=== PATIENT | female | born 1955 | race American Indian/Alaskan Native ===

== ENCOUNTER 2018-06-16 09:25 | Emergency (ER) | payer MEDICARE, MEDICAID ==
[~2018-06-16] VITALS: Ht 172.7 cm; Wt 67.1 kg
[2018-06-16] MEDS ORDERED: ROXICODONE15 MG PO (11:29)
--- OUTSIDE RECORDS SUMMARY | 2018-06-16 12:08 | XMS ---
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 GIL [employer] Events No recent Security Events currently on file CRITERIA MET - Group Notification CARE PROVIDERS There are no care providers on record at this time. Gunner has no Care Guidelines for this patient. Rani VISIT COUNT (12 MO.) 1 NEVA Vera TOTAL 1 NOTE: Visits indicate total known visits. ED/C VISIT TRACKING (12 MO.) 06/16/2018 09:26 [facility] TYPE: Emergency COMPLAINT: - CHEST PAIN INPATIENT VISIT TRACKING (12 MO.) No inpatient visits to display in this time frame [email or web address]
--- NOTE | 2018-06-17 14:50 | EKG ---
[facility] [address] [place], [place] [address] Signed Sinus rhythm with occasional premature ventricular complexes Left axis deviation Inferior-posterior infarct , age undetermined Abnormal ECG No previous ECGs available Confirmed by WOOD YANG MD ([id number]) on 06/17/2018 2:50:28 PM Electronically Signed By: WOOD YANG MD 06/17/18 1450 PATIENT NAME: ANNE MARIE GIL Electrocardiogram DATE OF : 53 PHYSICIAN: WOOD YANG MD REPORT #: [id number] REPORT IS CONFIDENTIAL AND NOT TO BE RELEASED WITHOUT AUTHORIZATION
== END 2018-06-16 11:50 | disposition home or self-care (01) ==
LOC: ED 09:25
DX: G89.18 Other acute postprocedural pain (principal); R07.89 Other chest pain; Z95.1 Presence of aortocoronary bypass graft
CPT/HCPCS: 36415; 71045; 80053; 84484; 85025; 93005; 93010; 96361; 96374; 96375; 99285; J1170; J2405; J7120

== ENCOUNTER 2018-07-05 18:58 | Emergency (ER) | payer MEDICARE, OTHER ==
[~2018-07-05] VITALS: Ht 172.7 cm; Wt 67.1 kg
--- OUTSIDE RECORDS SUMMARY | ~2018-07-05 | XMS | Encounter Summary ---
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 back yet CABG tomorrowFrKathie kiser MD - 06/09/2018 1732 PDTFormatting of this note may be dif ferent from the original. Patient: Smitha Fletcher Date of : 1955 Admit Date: 06/07/2018 Date of Service: 06/09/2018 PCP: Yolanda Lee [facility] Day: 0 Hospital Course: This is a 62 y.o.femalewith hx substance abuse, OR and stent [place] [address] Sandoval cardiology. She was brought from longterm, complaining of severe 8-9/10 burning chest pain [...] hypokinesis present but the patient has has OR's in the past . Mild LVH. Stress [...] Single Lumen 06/09/18 0836 Left Distal Forearm miwh-nzb-hwvyzr cathet er system 20 gauge;1 1/4 in [...] this chart may have been created with iAgree voice recognition software. Occasi onal wrong-word or sound-alike substitutions may have occurred due to the inherent meyers itations of voice recognition software. Please read the chart carefully and recognize, using context, where these substitutions have occurred Shad Schuler MD - 06/09/2018 0950 PDTFormatting of this note may be different from the original. PATIENT NAME: Smitha Fletcher [...] TTE on 018 revealed LVEF = 45%, tvyqotoi-tw-qcstcr hypokinesis of lateral and inferior castillo, julian [...] Complaint: Chest pain Hospital Course: 62F PMH CAD/OR s/p stent (2011), ischemic HFrEF (LVEF = 45%), HTN, polysubstance abuse (met hamphetamine & marijuana), HCV, bipolar disorder, nicotine dependence and incarceration pres ented from longterm w/ severe, burning, substernal chest pain w/ radiation to left shoulder and associated nausea and vomiting. Workup in ED revealed troponin elevation (peak 0.311 this admission) and patient was admitt ed for further workup and management w/ cardiology. Labs in ED also revealed UDS positive fo r amphetamine, methamphetamine, benzodiazepines and opiates. TTE revealed LVEF = 45%, ofpjgkbv-rp-gxdwni hypokinesis of lateral and inferior castillo, mitr [...] by: Shad Schuler MD 06/09/2018 18:44 Michael Olson MD - 06/08/2018 1625 PDTFormatting of this note may be different from the original. Patient: Smitha Fletcher Date of : 1955 Admit Date: 06/07/2018 Date of Service: 06/08/2018 PCP: Yolanda Lee [facility] Day: 0 Hospital Course: This is a 62 y.o. female with hx substance abuse, OR and stent [place] [address] Riya banuelos cardiology. She was brought from longterm, complaining on sever -06/15 burning chest pain [...] hypokinesis present but the patient has has OR's in the past . Mild LVH. Stress [...] 06/07/18 1545 Right Anterior (palmar);Medial Forearm ove c-dzz-jzqcat catheter system 20 gauge;other (see comments) 1 [...] this chart may have been created with iAgree voice recognition software. Occasi onal wrong-word or sound-alike substitutions may have occurred due to the inherent meyers itations of voice recognition software. Please read the chart carefully and recognize, using context, where these substitutions have occurred Shad Schuler MD - 06/08/2018 1022 PDTFormatting of this note may be different from the original. PATIENT NAME: Smitha Fletcher [...] Portions of this chart were created with iAgree voice recognition software. Occasional wro ng-word or "sound-alike" substitutions may have occurred due to the inherent limitations of voice recognition software. Please read the chart carefully and recognize, using context, w here those substitutions have occurred.Rhiannon Marcus RN - 06/07/2018 1509 [id number] arriv ed to floor. Somunlent. Asking very few questions. Follows directions. Changed into gown. De nies chest pain - mostly upper epigastric down abdomen. Emesis bag given. Lisinopril po give n with sips. HTN. SR on monitor. Alarm placed for safety. IVF prepared and vein blew with fl ush. in this encounter Plan of Treatment +--------+---------+ + + + | Date | Type | Specialty | Care Team | Description | +--------+---------+ + + + | 07/15/ | Office | Cardiology | Kylie Shields, | | | 2017 | Visit | | [facility] [address] | | | | | | [address], | | | | | | [place] [address] | | | | | | [phone] | | | | | | | | +--------+---------+ + + + + +--------+ + + | Name | Priori | Associated Diagnoses | Date/Time | | | ty | | | + +--------+ + + | ECG 12 lead | STAT | | 06/07/2018 0956 PDT | + +--------+ + + | ECG 12 lead | STAT | | 06/07/2018 1144 PDT | + +--------+ + + | Red Blood Cells | Routin | | 06/11/2018 1518 PDT | | (PRBC-INTRAOP)-Transfuse | e | | | + +--------+ + + + +--------+ + + | Name | Priori | Associated Diagnoses | Order Schedule | | | ty | | | + +--------+ + + | [facility] | NSTEMI (non-ST | Ordered: 06/15/2018 | | | e | elevated myocardial | | | | | infarction) ([facility]) | | + +--------+ + + | Ambulatory Referral to Cardiac | Routin | S/P CABG x 3 | Ordered: 06/15/2018 | | [facility] | e | | | + +--------+ + + as of this encounter Procedures + +--------+ + + + | Procedure Name | Priori | Date/Time | Associated Diagnosis | Comments | | | ty | | | | + +--------+ + + + | CBC NO DIFFERENTIAL | Routin | 06/15/2018 | | Results for this | | | e | 0923 PDT | | procedure are in the | | | | | | results section. | + +--------+ + + + | BASIC METABOLIC | Routin | 06/15/2018 | | Results for this | | PANEL | e | 0923 PDT | | procedure are in the | | | | | | results section. | + +--------+ + + + | XR CHEST 2 VIEWS | STAT | 06/15/2018 | | Results for this | | | | 0626 PDT | | procedure are in the | | | | | | results section. | + +--------+ + + + | PRODUCT: RBC | Routin | 06/15/2018 | | Results for this | | | e | 0353 PDT | | procedure are in the | | | | | | results section. | + +--------+ + + + | POC GLUCOSE | Routin | 06/14/2018 | | Results for this | | | e | 1627 PDT | | procedure are in the | | | | | | results section. | + +--------+ + + + | PRODUCT: RBC | STAT | 06/14/2018 | | Results for this | | | | 1212 PDT | | procedure are in the | | | | | | results section. | + +--------+ + + + | POC GLUCOSE | Routin | 06/14/2018 | | Results for this | | | e | 0627 PDT | | procedure are in the | | | | | | results section. | + +--------+ + + + | POC GLUCOSE | Routin | 06/14/2018 | | Results for this | | | e | 0231 PDT | | procedure are in the | | | | | | results section. | + +--------+ + + + | POC GLUCOSE | Routin | 06/13/2018 | | Results for this | | | e | 203 PDT | | procedure are in the | | | | | | results section. | + +--------+ + + + | POC GLUCOSE | Routin | 06/13/2018 | | Results for this | | | e | 1609 PDT | | procedure are in the | | | | | | results section. | + +--------+ + + + | POC GLUCOSE | Routin | 06/13/2018 | | Results for this | | | e | 1120 PDT | | procedure are in the | | | | | | results section. | + +--------+ + + + | POC GLUCOSE | Routin | 06/13/2018 | | Results for this | | | e | 0625 PDT | | procedure are in the | | | | | | results section. | + +--------+ + + + | XR CHEST AP PORTABLE | Routin | 06/13/2018 | | Results for this | | | e | 0622 PDT | | procedure are in the | | | | | | results section. | + +--------+ + + + | CBC NO DIFFERENTIAL | Routin | 06/13/2018 | | Results for this | | | e | 0402 PDT | | procedure are in the | | | | | | results section. | + +--------+ + + + | BASIC METABOLIC | Routin | 06/13/2018 | | Results for this | | PANEL | e | 0402 PDT | | procedure are in the | | | | | | results section. | + +--------+ + + + | POC GLUCOSE | Routin | 06/13/2018 | | Results for this | | | e | 0242 PDT | | procedure are in the | | | | | | results section. | + +--------+ + + + | POC GLUCOSE | Routin | 06/12/2018 | | Results for this | | | e | 2200 PDT | | procedure are in the | | | | | | results section. | + +--------+ + + + | POC GLUCOSE | Routin | 06/12/2018 | | Results for this | | | e | 1641 PDT | | procedure are in the | | | | | | results section. | + +--------+ + + + | POC GLUCOSE | Routin | 06/12/2018 | | Results for this | | | e | 1602 PDT | | procedure are in the | | | | | | results section. | + +--------+ + + + | POC GLUCOSE | Routin | 06/12/2018 | | Results for this | | | e | 1227 PDT | | procedure are in the | | | | | | results section. | + +--------+ + + + | POC GLUCOSE | Routin | 06/12/2018 | | Results for this | | | e | 0659 PDT | | procedure are in the | | | | | | results section. | + +--------+ + + + | POC GLUCOSE | Routin | 06/12/2018 | | Results for this | | | e | 0600 PDT | | procedure are in the | | | | | | results section. | + +--------+ + + + | POC GLUCOSE | Routin | 06/12/2018 | | Results for this | | | e | 0508 PDT | | procedure are in the | | | | | | results section. | + +--------+ + + + | XR CHEST AP PORTABLE | Routin | 06/12/2018 | | Results for this | | | e | 0333 PDT | | procedure are in the | | | | | | results section. | + +--------+ + + + | POC GLUCOSE | Routin | 06/12/2018 | | Results for this | | | e | 0315 PDT | | procedure are in the | | | | | | results section. | + +--------+ + + + | ECG 12 LEAD | Routin | 06/12/2018 | | Results for this | | | e | 0312 PDT | | procedure are in the | | | | | | results section. | + +--------+ + + + | CBC NO DIFFERENTIAL | Routin | 06/12/2018 | | Results for this | | | e | 0312 PDT | | procedure are in the | | | | | | results section. | + +--------+ + + + | BASIC METABOLIC | Routin | 06/12/2018 | | Results for this | | PANEL | e | 0312 PDT | | procedure are in the | | | | | | results section. | + +--------+ + + + | POC GLUCOSE | Routin | 06/12/2018 | | Results for this | | | e | 0239 PDT | | procedure are in the | | | | | | results section. | + +--------+ + + + | POC GLUCOSE | Routin | 06/12/2018 | | Results for this | | | e | 0135 PDT | | procedure are in the | | | | | | results section. | + +--------+ + + + | POC GLUCOSE | Routin | 06/11/2018 | | Results for this | | | e | 2358 PDT | | procedure are in the | | | | | | results section. | + +--------+ + + + | POC GLUCOSE | Routin | 06/11/2018 | | Results for this | | | e | 2319 PDT | | procedure are in the | | | | | | results section. | + +--------+ + + + | GLUCOSE, RESPIRATORY | STAT | 06/11/2018 | | Results for this | | | | 2301 PDT | | procedure are in the | | | | | | results section. | + +--------+ + + + | BLOOD GAS, ARTERIAL | STAT | 06/11/2018 | | Results for this | | | | 2301 PDT | | procedure are in the | | | | | | results section. | + +--------+ + + + | POTASSIUM, WHOLE | STAT | 06/11/2018 | | Results for this | | BLOOD | | 2301 PDT | | procedure are in the | | | | | | results section. | + +--------+ + + + | POC GLUCOSE | Routin | 06/11/2018 | | Results for this | | | e | 2156 PDT | | procedure are in the | | | | | | results section. | + +--------+ + + + | POC GLUCOSE | Routin | 06/11/2018 | | Results for this | | | e | 2028 PDT | | procedure are in the | | | | | | results section. | + +--------+ + + + | POTASSIUM | STAT | 06/11/2018 | | Results for this | | | | 1957 PDT | | procedure are in the | | | | | | results section. | + +--------+ + + + | POC GLUCOSE | Routin | 06/11/2018 | | Results for this | | | e | 185 PDT | | procedure are in the | | | | | | results section. | + +--------+ + + + | ECG 12 LEAD | Routin | 06/11/2018 | | Results for this | | | e | 1659 PDT | | procedure are in the | | | | | | results section. | + +--------+ + + + | PTT | STAT | 06/11/2018 | | Results for this | | | | 1637 PDT | | procedure are in the | | | | | | results section. | + +--------+ + + + | PROTIME INR | STAT | 06/11/2018 | | Results for this | | | | 1637 PDT | | procedure are in the | | | | | | results section. | + +--------+ + + + | CBC NO DIFFERENTIAL | STAT | 06/11/2018 | | Results for this | | | | 1637 PDT | | procedure are in the | | | | | | results section. | + +--------+ + + + | COMPREHENSIVE | STAT | 06/11/2018 | | Results for this | | METABOLIC PANEL | | 1637 PDT | | procedure are in the | | | | | | results section. | + +--------+ + + + | LACTIC ACID, | STAT | 06/11/2018 | | Results for this | | ARTERIAL, | | 1636 PDT | | procedure are in the | | RESPIRATORY | | | | results section. | + +--------+ + + + | GLUCOSE, RESPIRATORY | STAT | 06/11/2018 | | Results for this | | | | 1636 PDT | | procedure are in the | | | | | | results section. | + +--------+ + + + | CALCIUM, IONIZED, | STAT | 06/11/2018 | | Results for this | | RESPIRATORY | | 1636 PDT | | procedure are in the | | | | | | results section. | + +--------+ + + + | BLOOD GAS, ARTERIAL | STAT | 06/11/2018 | | Results for this | | | | 1636 PDT | | procedure are in the | | | | | | results section. | + +--------+ + + + | XR CHEST AP PORTABLE | STAT | 06/11/2018 | | Results for this | | | | 1634 PDT | | procedure are in the | | | | | | results section. | + +--------+ + + + | LACTIC ACID, | Routin | 06/11/2018 | | Results for this | | ARTERIAL, SURGERY | e | 1525 PDT | | procedure are in the | | | | | | results section. | + +--------+ + + + | BLOOD GAS , | Routin | 06/11/2018 | | Results for this | | ARTERIAL, SURGERY | e | 1525 PDT | | procedure are in the | | | | | | results section. | + +--------+ + + + | TRANSFUSE RED BLOOD | Routin | 06/11/2018 | | | | CELLS INTRAOP | e | 1518 PDT | | | + +--------+ + + + | DIC PANEL | STAT | 06/11/2018 | | Results for this | | | | 1456 PDT | | procedure are in the | | | | | | results section. | + +--------+ + + + | LACTIC ACID, | Routin | 06/11/2018 | | Results for this | | ARTERIAL, SURGERY | e | 1450 PDT | | procedure are in the | | | | | | results section. | + +--------+ + + + | BLOOD GAS , | Routin | 06/11/2018 | | Results for this | | ARTERIAL, SURGERY | e | 1450 PDT | | procedure are in the | | | | | | results section. | + +--------+ + + + | LACTIC ACID, | Routin | 06/11/2018 | | Results for this | | ARTERIAL, SURGERY | e | 1400 PDT | | procedure are in the | | | | | | results section. | + +--------+ + + + | BLOOD GAS , | Routin | 06/11/2018 | | Results for this | | ARTERIAL, SURGERY | e | 1400 PDT | | procedure are in the | | | | | | results section. | + +--------+ + + + | LACTIC ACID, | Routin | 06/11/2018 | | Results for this | | ARTERIAL, SURGERY | e | 1334 PDT | | procedure are in the | | | | | | results section. | + +--------+ + + + | BLOOD GAS , | Routin | 06/11/2018 | | Results for this | | ARTERIAL, SURGERY | e | 1334 PDT | | procedure are in the | | | | | | results section. | + +--------+ + + + | ECHO TRANSESOPHAGEAL | Routin | 06/11/2018 | | Results for this | | (CHIQUITA) | e | 1305 PDT | | procedure are in the | | | | | | results section. | + +--------+ + + + | LACTIC ACID, | Routin | 06/11/2018 | | Results for this | | ARTERIAL, SURGERY | e | 1300 PDT | | procedure are in the | | | | | | results section. | + +--------+ + + + | CHEMISTRY PROFILE, A | Routin | 06/11/2018 | | Results for this | | AND V, SURGERY | e | 1300 PDT | | procedure are in the | | | | | | results section. | + +--------+ + + + | LACTIC ACID, | Routin | 06/11/2018 | | Results for this | | ARTERIAL, SURGERY | e | 1035 PDT | | procedure are in the | | | | | | results section. | + +--------+ + + + | BLOOD GAS , | Routin | 06/11/2018 | | Results for this | | ARTERIAL, SURGERY | e | 1035 PDT | | procedure are in the | | | | | | results section. | + +--------+ + + + | CORONARY ARTERY | | 06/11/2018 | CVD | | | BYPASS GRAFT | | 0930 PDT | (cardiovascular | | | | | | disease) | | + +--------+ + + + +---+--------+ | | | | | Specia | | | l | | | Needs | | | CHIQUITA | +---+--------+ + +--------+ +---+ + | TYPE AND SCREEN | STAT | 06/11/2018 | | Results for this | | | | 0513 PDT | | procedure are in the | | | | | | results section. | + +--------+ +---+ + | POC GLUCOSE | Routin | 06/11/2018 | | Results for this | | | e | 0312 PDT | | procedure are in the | | | | | | results section. | + +--------+ +---+ + | PTT | Timed | 06/11/2018 | | Results for this | | | | 0312 PDT | | procedure are in the | | | | | | results section. | + +--------+ +---+ + | PROTIME INR | Timed | 06/11/2018 | | Results for this | | | | 0312 PDT | | procedure are in the | | | | | | results section. | + +--------+ +---+ + | CBC NO DIFFERENTIAL | Timed | 06/11/2018 | | Results for this | | | | 0312 PDT | | procedure are in the | | | | | | results section. | + +--------+ +---+ + | BASIC METABOLIC | Timed | 06/11/2018 | | Results for this | | PANEL | | 0312 PDT | | procedure are in the | | | | | | results section. | + +--------+ +---+ + | MRSA NAAT | Routin | 06/11/2018 | | Results for this | | | e | 0010 PDT | | procedure are in the | | | | | | results section. | + +--------+ +---+ + | URINALYSIS WITH | Routin | 06/11/2018 | | Results for this | | MICROSCOPIC WITH | e | 0000 PDT | | procedure are in the | | CULTURE IF INDICATED | | | | results section. | + +--------+ +---+ + | POC GLUCOSE | Routin | 06/10/2018 | | Results for this | | | e | 2254 PDT | | procedure are in the | | | | | | results section. | + +--------+ +---+ + | PTT | Routin | 06/10/2018 | | Results for this | | | e | 2002 PDT | | procedure are in the | | | | | | results section. | + +--------+ +---+ + | PROTIME INR | Routin | 06/10/2018 | | Results for this | | | e | 1722 PDT | | procedure are in the | | | | | | results section. | + +--------+ +---+ + | BASIC METABOLIC | Routin | 06/10/2018 | | Results for this | | PANEL | e | 1722 PDT | | procedure are in the | | | | | | results section. | + +--------+ +---+ + | POC GLUCOSE | Routin | 06/10/2018 | | Results for this | | | e | 1623 PDT | | procedure are in the | | | | | | results section. | + +--------+ +---+ + | HEPATITIS PANEL, | Routin | 06/10/2018 | | Results for this | | ACUTE | e | 1409 PDT | | procedure are in the | | | | | | results section. | + +--------+ +---+ + | PTT | Timed | 06/10/2018 | | Results for this | | | | 1409 PDT | | procedure are in the | | | | | | results section. | + +--------+ +---+ + | ECG 12 LEAD | Routin | 06/10/2018 | | Results for this | | | e | 1210 PDT | | procedure are in the | | | | | | results section. | + +--------+ +---+ + | PFT PULMONARY | KIRAN | 06/10/2018 | | Results for this | | FUNCTION TESTING | | 1156 PDT | | procedure are in the | | ORDERS | | | | results section. | + +--------+ +---+ + | HEPATITIS PANEL, | Routin | 06/10/2018 | | Results for this | | CHRONIC | e | 0655 PDT | | procedure are in the | | | | | | results section. | + +--------+ +---+ + | PTT | Timed | 06/10/2018 | | Results for this | | | | 0655 PDT | | procedure are in the | | | | | | results section. | + +--------+ +---+ + | HEMOGLOBIN A1C | Routin | 06/10/2018 | | Results for this | | | e | 0655 PDT | | procedure are in the | | | | | | results section. | + +--------+ +---+ + | ABO RH | Routin | 06/10/2018 | | Results for this | | | e | 0649 PDT | | procedure are in the | | | | | | results section. | + +--------+ +---+ + | ANTIBODY SCREEN | Routin | 06/10/2018 | | Results for this | | | e | 0649 PDT | | procedure are in the | | | | | | results section. | + +--------+ +---+ + | ANTIBODY ID | STAT | 06/10/2018 | | Results for this | | | | 0046 PDT | | procedure are in the | | | | | | results section. | + +--------+ +---+ + | TYPE AND SCREEN | STAT | 06/10/2018 | | Results for this | | | | 0046 PDT | | procedure are in the | | | | | | results section. | + +--------+ +---+ + | PTT | Routin | 06/10/2018 | | Results for this | | | e | 0046 PDT | | procedure are in the | | | | | | results section. | + +--------+ +---+ + | CV LV | Routin | 06/09/2018 | | Results for this | | | e | 1309 PDT | | procedure are in the | | | | | | results section. | + +--------+ +---+ + | CV LHC | Routin | 06/09/2018 | | Results for this | | | e | 1309 PDT | | procedure are in the | | | | | | results section. | + +--------+ +---+ + | CV COR ANGIO | Routin | 06/09/2018 | | Results for this | | | e | 1309 PDT | | procedure are in the | | | | | | results section. | + +--------+ +---+ + | LVEF VALUE | Routin | 06/09/2018 | | Results for this | | | e | 1300 PDT | | procedure are in the | | | | | | results section. | + +--------+ +---+ + | NM NUCLEAR STRESS | Routin | 06/09/2018 | | Results for this | | TEST (EXERCISE) | e | 1045 PDT | | procedure are in the | | | | | | results section. | + +--------+ +---+ + | ECG 12 LEAD | Routin | 06/09/2018 | | Results for this | | | e | 0421 PDT | | procedure are in the | | | | | | results section. | + +--------+ +---+ + | CBC WITH | Routin | 06/09/2018 | | Results for this | | DIFFERENTIAL | e | 0307 PDT | | procedure are in the | | | | | | results section. | + +--------+ +---+ + | MAGNESIUM | Routin | 06/09/2018 | | Results for this | | | e | 0307 PDT | | procedure are in the | | | | | | results section. | + +--------+ +---+ + | BASIC METABOLIC | Routin | 06/09/2018 | | Results for this | | PANEL | e | 0307 PDT | | procedure are in the | | | | | | results section. | + +--------+ +---+ + | ECHO COMPLETE | Routin | 06/08/2018 | | Results for this | | | e | 1152 PDT | | procedure are in the | | | | | | results section. | + +--------+ +---+ + | TROPONIN I | STAT | 06/08/2018 | | Results for this | | | | 0921 PDT | | procedure are in the | | | | | | results section. | + +--------+ +---+ + | ECG 12 LEAD | Routin | 06/08/2018 | | Results for this | | | e | 0430 PDT | | procedure are in the | | | | | | results section. | + +--------+ +---+ + | TROPONIN I | STAT | 06/08/2018 | | Results for this | | | | 0316 PDT | | procedure are in the | | | | | | results section. | + +--------+ +---+ + | MAGNESIUM | Routin | 06/08/2018 | | Results for this | | | e | 0316 PDT | | procedure are in the | | | | | | results section. | + +--------+ +---+ + | RENAL FUNCTION PANEL | Routin | 06/08/2018 | | Results for this | | | e | 0316 PDT | | procedure are in the | | | | | | results section. | + +--------+ +---+ + | TROPONIN I | STAT | 06/07/2018 | | Results for this | | | | 2051 PDT | | procedure are in the | | | | | | results section. | + +--------+ +---+ + | TROPONIN I | STAT | 06/07/2018 | | Results for this | | | | 1626 PDT | | procedure are in the | | | | | | results section. | + +--------+ +---+ + | ECG 12 LEAD | STAT | 06/07/2018 | | | | | | 1144 PDT | | | + +--------+ +---+ + | CK TOTAL AND CK-MB | Add-On | 06/07/2018 | | Results for this | | | | 1135 PDT | | procedure are in the | | | | | | results section. | + +--------+ +---+ + | ECG 12 LEAD | STAT | 06/07/2018 | | | | | | 0956 PDT | | | + +--------+ +---+ + | XR CHEST PA AND | STAT | 06/07/2018 | | Results for this | | LATERAL | | 0922 PDT | | procedure are in the | | | | | | results section. | + +--------+ +---+ + | DRUGS OF ABUSE, | STAT | 06/07/2018 | | Results for this | | SCREEN, URINE | | 0914 PDT | | procedure are in the | | | | | | results section. | + +--------+ +---+ + | TROPONIN I | STAT | 06/07/2018 | | Results for this | | | | 0910 PDT | | procedure are in the | | | | | | results section. | + +--------+ +---+ + | CBC WITH | STAT | 06/07/2018 | | Results for this | | DIFFERENTIAL | | 0910 PDT | | procedure are in the | | | | | | results section. | + +--------+ +---+ + | MYOGLOBIN | STAT | 06/07/2018 | | Results for this | | | | 0910 PDT | | procedure are in the | | | | | | results section. | + +--------+ +---+ + | LIPASE | STAT | 06/07/2018 | | Results for this | | | | 0910 PDT | | procedure are in the | | | | | | results section. | + +--------+ +---+ + | COMPREHENSIVE | STAT | 06/07/2018 | | Results for this | | METABOLIC PANEL | | 0910 PDT | | procedure are in the | | | | | | results section. | + +--------+ +---+ + | EXTRA HOLD TUBE(S) | Routin | 06/07/2018 | | Results for this | | | e | 0910 PDT | | procedure are in the | | | | | | results section. | + +--------+ +---+ + | URINALYSIS WITH | STAT | 06/07/2018 | | Results for this | | MICROSCOPIC WITH | | 0903 PDT | | procedure are in the | | CULTURE IF INDICATED | | | | results section. | + +--------+ +---+ + | CK TOTAL | Add-On | 06/07/2018 | | Results for this | | | | 0903 PDT | | procedure are in the | | | | | | results section. | + +--------+ +---+ + | ARRHYTHMIA MONITOR - | | 06/07/2018 | | Results for this | | EXTERNAL SCAN | | 0000 PDT | | procedure are in the | | | | | | results section. | + +--------+ +---+ + in this encounter Results CBC no Differential (06/15/2018922) + + + + + | Component | Value | Ref Range | Performed At | + + + + + | WBC | 13.9 (H) | 3.8 - 11.0 K/uL | [facility] | | | | | [facility]ORY | | | | | [facility] | + + + + + | RBC | 3.24 (L) | 3.70 - 5.10 M/uL | [facility] | [facility] | | | | | [facility]ATORY | | | | | [facility] | + + + + + | Hgb | 9.5 (L) | 11.3 - 15.5 g/dL | [facility] | | | | | LAB[facility]ATORY | | | | | [facility] | + + + + + | Hct | 28.8 (L) | 34.0 - 46.0 % | [facility] | [facility] | | | | | LAB[facility]ATORY | | | | | [facility] | + + + + + | MCV | 89.0 | 80.0 - 100.0 fL | [facility] | | | | [facility] | | | | | LAB[facility]ATORY | | | | | [facility] | + + + + + | MCH | 29.3 | 27.0 - 34.0 pg | [facility] | | | | [facility] | | | | | LAB[facility]ATORY | | | | | [facility] | + + + + + | MCHC | 32.9 | 32.0 - 35.5 g/dL | [facility] | | [facility] | | | | | LAB[facility]ATORY | | | | | [facility] | + + + + + | RDW-CV | 15.5 | 11.0 - 15.5 % | [facility] | | | [facility] | | [facility] | | | | | LAB[facility]ATORY | | | | | [facility] | + + + + + | Platelet Count | 231 | 150 - 400 K/uL | [facility] | | | [facility] | | | [facility] | | | | | LAB[facility]ORY | | | | | [facility] | + + + + + | MPV | 7.2 (L)Comment: | 7.5 - 11.2 fL | [facility] | | | Performed by [facility] | | [facility] | | | [address] [place] | | [facility] | | | [address] | | LABORATORY | | | | | [facility] | + + + + + + + | Specimen | + + | Blood | + + + + + + + | Performing | Address | City/State/Zipcode | Phone Number | | Organization | | | | + + + + + | [facility] | [address] | [place] [address] | | | [facility] | | | | | [facility]AT[facility] [place] | | | | + + + + + Basic Metabolic Panel (06/15/2018922) + + + + + | Component | Value | Ref Range | Performed At | + + + + + | NA | 136 | 135 - 145 mmol/L | [facility] | [facility] | | | | | LAB[facility]ATORY | | | | | [facility] | + + + + + | K | 4.6 | 3.5 - 5.0 mmol/L | [facility] | | [facility] | | | [facility] | | | | | LAB[facility]ATORY | | | | | [facility] | + + + + + | CL | 100 | 99 - 109 mmol/L | [facility] | | [facility] | | | [facility] | | | | | LABORATORY | | | | | [facility] | + + + + + | CO2 | 26 | 21 - 28 mmol/L | [facility] | | | [facility] | | | [facility] | | | | | LABORATORY | | | | | [facility] | + + + + + | ANION GAP | 10 | 5 - 16 mmol/L | [facility] | | | | | [facility] | | | [facility] | | | | | LAB[facility]ATORY | | | | | [facility] | + + + + + | CALCIUM | 8.7 | 8.5 - 10.2 mg/dL | [facility] | | | [facility] | | [facility] | | | | | LAB[facility]ATORY | | | | | [facility] | + + + + + | BUN | 47 (H) | 8 - 25 mg/dL | [facility] | | | [facility] | | | [facility] | | | | | LAB[facility]ATORY | | | | | [facility] | + + + + + | Creatinine, | 1.47 (H) | 0.50 - 1.00 mg/dL | [facility] | | Serum/Plasma | | | [facility] | | | | [facility] | | | | | LABORATORY | | | | | [facility] | + + + + + | GLUCOSE | 135 (H) | 65 - 99 mg/dL | [facility] | | | [facility] | | | | [facility] | | | | | LAB[facility]ATORY | | | | | [facility] | + + + + + | Estimated GFR | 38 (L)Comment: eGFR<60 | >=90 mL/min/1.73m2 | [facility] | | | consistent with impaired | | [facility] | | | kidney | | [facility] | | | function.Performed by | | LABORATORY | | | [facility] [address], | | [place] | | | [place] [address] | | | + + + + + + + | Specimen | + + | Blood | + + + + + + + | Performing | Address | City/State/Zipcode | Phone Number | | Organization | | | | + + + + + | [facility] | [address] | [place] [address] | | | [facility] | | | | | LAB[facility]AT[facility] [place] | | | | + + + + + XR Chest 2 Vws (06/15/2018 0626) + + + | Narrative | Performed At | + + + | CHEST TWO VIEWS CLINICAL INFORMATION: Follow up effusion. | [facility] | | COMPARISON: 06/13/2018. IMPRESSION: 1. Mediastinal and chest | | | drains have been removed. 2. There is improved aeration | | | bilaterally. Decreased perihilar reticular and ground-glass | | | opacities. Patchy bibasilar atelectasis and suspect minimal | | | pleural effusions. 3. Cardiomediastinal contours are stable. 4. No | | | pneumothorax. Signed by: MD Upton Paula Sign | | | Date/Time: 06/15/2018 6:31 AM | | + + + + + | Procedure Note | + + | Tim, Rad Results In - 06/15/2018 0635 PDT | | CHEST TWO VIEWS | [...] Red Blood Cells (PRBC) - Crossmatch (06/15/2018 0353) + + + + + | Component | Value | Ref Range | Performed At | + + + + + | Product Code | [id number] | | [facility] | | | | | [facility] | | | | | [facility] | | | | [facility] | + + + + + | UNIT # | [id number] | | [facility] | | | | | [facility] | | | | | [facility] | | | | [facility] | + + + + + | UNIT ABO | O | | [facility] | | | | | [facility] | | | | | [facility] | | | | [facility] | + + + + + | UNIT RH | NEG | | [facility] | | | | | [facility] | | | | | [facility] | | | | | [facility] | + + + + + | CROSSMATCH INTERP | Compatible | | [facility] | | | | | [facility] | | | | | [facility] | | | | | [facility] | + + + + + | Unit Status | RE | | [facility] | | | | | [facility] | | | | | [facility] | | | | [facility] | + + + + + | Blood Product | [id number] | | [facility] | | Expiration Date and | | | [facility] | | Time | | | [facility] | | | | | [facility] | + + + + + | Product Blood Type | 9500 | | [facility] | | Barcode | | | [facility] | | | | | [facility] | | | | | [facility] | + + + + + + + + | Narrative | Performed At | + + + | Specimen Expiration Date: [id number] | [facility] | | | [facility] | | [facility] | + + + + + + + + | Performing | Address | City/State/Zipcode | Phone Number | | Organization | | | | + + + + + | [facility] | [address] | [place] [address] | [phone] | | [facility] | | | | | [facility] | | | | | [facility] | | | | + + + + + POC Glucose (06/14/2018 1627) + + + + + | Component | Value | Ref Range | Performed At | + + + + + | Glucose, POC | 127 (H)Comment: | 65 - 99 mg/dL | [facility] | | | Performed by [facility] [address] | | [facility] | | | [place] | | [facility] | | | [address] | | LABORATORY | | | | | [place] | + + + + + + + | Specimen | + + | Blood | + + + + + + + | Performing | Address | City/State/Zipcode | Phone Number | | Organization | | | | + + + + + | [facility] | [address] | [place] [address] | | | [facility] | | | | | LABORATORY [place] | | | | + + + + + Red Blood Cells (06/14/2018 1212) + + + + + | Component | Value | Ref Range | Performed At | + + + + + | Product Code | [id number] | | [facility] | | | | | [facility] | | | | | [facility] | | | | [facility] | + + + + + | UNIT # | [id number] | | [facility] | | | | | [facility] | | | | | [facility] | | | | | [facility] | + + + + + | UNIT ABO | O | | [facility] | | | | | [facility] | | | | | [facility] | | | | | [facility] | + + + + + | UNIT RH | NEG | | [facility] | | | | | [facility] | | | | | [facility] | | | | | [facility] | + + + + + | CROSSMATCH INTERP | Compatible | | [facility] | | | | | [facility] | | | | | [facility] | | | | | [facility] | + + + + + | Unit Status | IS | | [facility] | | | | | [facility] | | | | | [facility] | | | | | [facility] | + + + + + | Blood Product | [id number] | | [facility] | | Expiration Date and | | | [facility] | | Time | | | [facility] | | | | [facility] | + + + + + | Product Blood Type | 9500 | | [facility] | | Barcode | | | [facility] | | | | | [facility] | | | | | [facility] | + + + + + | Product Code | [id number] | | [facility] | | | | | [facility] | | | | | [facility] | | | | [facility] | + + + + + | UNIT # | [id number] | | [facility] | | | | | [facility] | | | | | [facility] | | | | | [facility] | + + + + + | UNIT ABO | O | | [facility] | | | | | [facility] | | | | | [facility] | | | | [facility] | + + + + + | UNIT RH | NEG | | [facility] | | | | | [facility] | | | | | [facility] | | | | | [facility] | + + + + + | CROSSMATCH INTERP | Compatible | | [facility] | | | | | [facility] | | | | | [facility] | | | | | [facility] | + + + + + | Unit Status | IS | | [facility] | | | | | [facility] | | | | | [facility] | | | | [facility] | + + + + + | Blood Product | [id number] | | [facility] | | Expiration Date and | | | [facility] | | Time | | | [facility] | | | | [facility] | + + + + + | Product Blood Type | 9500 | | [facility] | | Barcode | | | [facility] | | | | | [facility] | | | | [facility] | + + + + + + + + | Narrative | Performed At | + + + | Specimen Expiration Date: [id number] | [facility] | | | [facility] | | [facility] | [facility] | + + + + + + + + | Performing | Address | City/State/Zipcode | Phone Number | | Organization | | | | + + + + + | [facility] | [address] | [place] [address] | [phone] | | [facility] | | | | | [facility] | | | | | [facility] | | | | + + + + + POC Glucose (06/14/2018626) + + + + + | Component | Value | Ref Range | Performed At | + + + + + | Glucose, POC | 142 (H)Comment: | 65 - 99 mg/dL | [facility] | | | Performed by [facility] [address] | | [facility] | | | [place] | | [facility] | | | [address] | | LABORATORY | | | | | [place] | + + + + + + + | Specimen | + + | Blood | + + + + + + + | Performing | Address | City/State/Zipcode | Phone Number | | Organization | | | | + + + + + | [facility] | [address] | [place] [address] | | | [facility] | | | | | LABORATORY [facility] | | | | + + + + + POC Glucose (06/14/2018 0231) + + + + + | Component | Value | Ref Range | Performed At | + + + + + | Glucose, POC | 148 (H)Comment: | 65 - 99 mg/dL | [facility] | | | Performed by [facility] [address] | | [facility] | | | [address], [place] | | [facility] | | | [address] | | LABORATORY | | | | | [place] | + + + + + + + | Specimen | + + | Blood | + + + + + + + | Performing | Address | City/State/Zipcode | Phone Number | | Organization | | | | + + + + + | [facility] | [address] | [place] [address] | | | [facility] | | | | | LABORATORY [place] | | | | + + + + + POC Glucose (06/13/20182038) + + + + + | Component | Value | Ref Range | Performed At | + + + + + | Glucose, POC | 165 (H)Comment: | 65 - 99 mg/dL | [facility] | | | Performed by [facility] [address] | | [facility] | | | [place], [place], [place] | | MEDICAL CENTER | | | [address] | | LABORATORY | | | | | [place] | + + + + + + + | Specimen | + + | Blood | + + + + + + + | Performing | Address | City/State/Zipcode | Phone Number | | Organization | | | | + + + + + | [facility] | [address] | [place] [address] | | | [facility] | | | | | LABORATORY [place] | | | | + + + + + POC Glucose (06/13/2018 1609) + + + + + | Component | Value | Ref Range | Performed At | + + + + + | Glucose, POC | 134 (H)Comment: | 65 - 99 mg/dL | [facility] | | | Performed by [facility] [address] | | [facility] | | | [address] [place], [place] | | [facility] | | | [address] | | LABORATORY | | | | | [place] | + + + + + + + | Specimen | + + | Blood | + + + + + + + | Performing | Address | City/State/Zipcode | Phone Number | | Organization | | | | + + + + + | [facility] | [address] | [place] [address] | | | [facility] | | | | | LABORATORY [place] | | | | + + + + + POC Glucose (06/13/2018 1120) + + + + + | Component | Value | Ref Range | Performed At | + + + + + | Glucose, POC | 131 (H)Comment: | 65 - 99 mg/dL | [facility] | | | Performed by [facility] [address] | | [facility] | | | [place], [place] | | [facility] | | | [address] | | LABORATORY | | | | | [place] | + + + + + + + | Specimen | + + | Blood | + + + + + + + | Performing | Address | City/State/Zipcode | Phone Number | | Organization | | | | + + + + + | [facility] | [address] | [place] [address] | | | [facility] | | | | | LAB[facility]ATORY [place] | | | | + + + + + POC Glucose (06/13/2018624) + + + + + | Component | Value | Ref Range | Performed At | + + + + + | Glucose, POC | 159 (H)Comment: | 65 - 99 mg/dL | [facility] | | | Performed by [facility] [address] | | [facility] | | | [place] | | MEDICAL CENTER | | | [address] | | LABORATORY | | | | | [place] | + + + + + + + | Specimen | + + | Blood | + + + + + + + | Performing | Address | City/State/Zipcode | Phone Number | | Organization | | | | + + + + + | [facility] | [address] | [place] [address] | | | [facility] | | | | | LABORATORY [place] | | | | + + + + + XR Chest AP Portable (06/13/2018 0622) + + + | Narrative | Performed At | + + + | CHEST PORTABLE ONE VIEW CLINICAL INFORMATION: Chest tube | [facility] | | placement. COMPARISON: X-ray yesterday. FINDINGS/IMPRESSION: | | | 1. Right IJ central line has been removed. The remaining lines and | | | support devices are unchanged in position. 2. Low lung | | | volumes. Increased bibasilar airspace consolidation or | | | atelectasis, and increased bilateral perihilar hazy atelectasis or | | | edema. 3. Cardiomediastinal contours are stable. 4. No pneumothorax. | | | Signed by: MD Won, Arabella Sign Date/Time: 06/13/2018 | | | 6:46 AM | | + + + + + | Procedure Note | + + | Tim, Rad Results In - 06/13/2018 0650 PDT | | CHEST PORTABLE ONE VIEW [...] + +---------+ + + CBC no Differential (06/13/2018401) + + + + + | Component | Value | Ref Range | Performed At | + + + + + | WBC | 11.8 (H) | 3.8 - 11.0 K/uL | [facility] | | | | | [facility] | | | | | [facility] | | | | | LABORATORY | | | | | [place] | + + + + + | RBC | 3.45 (L) | 3.70 - 5.10 M/uL | [facility] | | | | | [facility] | | | | | [facility] | | | | | LABORATORY | | | | | [place] | + + + + + | Hgb | 10.3 (L) | 11.3 - 15.5 g/dL | [facility] | | | | | [facility] | | | | | [facility] | | | | | LABORATORY | | | | | [place] | + + + + + | Hct | 30.7 (L) | 34.0 - 46.0 % | [facility] | | | | | [facility] | | | | | [facility] | | | | | LABORATORY | | | | | [place] | + + + + + | MCV | 88.9 | 80.0 - 100.0 fL | [facility] | | | | | [facility] | | | | | [facility] | | | | | LABORATORY | | | | | [place] | + + + + + | MCH | 30.0 | 27.0 - 34.0 pg | [facility] | | | | | [facility] | | | | | [facility] | | | | | LABORATORY | | | | | [place] | + + + + + | MCHC | 33.7 | 32.0 - 35.5 g/dL | [facility] | | | | | [facility] | | | | | [facility] | | | | | LABORATORY | | | | | [place] | + + + + + | RDW-CV | 15.3 | 11.0 - 15.5 % | [facility] | | | | | [facility] | | | | | [facility] | | | | | LABORATORY | | | | | [place] | + + + + + | Platelet Count | 192 | 150 - 400 K/uL | [facility] | | | | | [facility] | | | | | [facility] | | | | | LABORATORY | | | | | [place] | + + + + + | MPV | 6.9 (L)Comment: | 7.5 - 11.2 fL | [facility] | | | Performed by [facility] [address] | | [facility] | | | [facility] [address], [place], [place] | | MEDICAL CENTER | | | [address] | | LABORATORY | | | | | [place] | + + + + + + + | Specimen | + + | Blood | + + + + + + + | Performing | Address | City/State/Zipcode | Phone Number | | Organization | | | | + + + + + | [facility] | [address] | [place] [address] | | | [facility] | | | | | LABORATORY [place] | | | | + + + + + Basic Metabolic Panel (06/13/2018401) + + + + + | Component | Value | Ref Range | Performed At | + + + + + | NA | 137 | 135 - 145 mmol/L | [facility] | | | | | [facility] | | | | | [facility] | | | | | LABORATORY | | | | | [place] | + + + + + | K | 4.6 | 3.5 - 5.0 mmol/L | [facility] | | | | | [facility] | | | | | [facility] | | | | | LABORATORY | | | | | [place] | + + + + + | CL | 103 | 99 - 109 mmol/L | [facility] | | | | | [facility] | | | | | [facility] | | | | | LABORATORY | | | | | [place] | + + + + + | CO2 | 27 | 21 - 28 mmol/L | [facility] | | | | | [facility] | | | | | [facility] | | | | | LABORATORY | | | | | [place] | + + + + + | ANION GAP | 7 | 5 - 16 mmol/L | [facility] | | | | | [facility] | | | | | [facility] | | | | | LABORATORY | | | | | [place] | + + + + + | CALCIUM | 8.0 (L) | 8.5 - 10.2 mg/dL | [facility] | | | | | [facility] | | | | | [facility] | | | | | LABORATORY | | | | | [place] | + + + + + | BUN | 27 (H) | 8 - 25 mg/dL | [facility] | | | | | [facility] | | | | | [facility] | | | | | LABORATORY | | | | | [place] | + + + + + | Creatinine, | 1.12 (H) | 0.50 - 1.00 mg/dL | [facility] | | Serum/Plasma | | | [facility] | | | | | [facility]ENTER | | | | | LABORATORY | | | | | [place] | + + + + + | GLUCOSE | 146 (H) | 65 - 99 mg/dL | [facility] | | | | | [facility] | | | | | [facility] | | | | | LABORATORY | | | | | [place] | + + + + + | Estimated GFR | 52 (L)Comment: eGFR<60 | >=90 mL/min/1.73m2 | [facility] | | | consistent with impaired | | [facility] | | | kidney | | [facility]ICAL [facility]ENTER | | | function.Performed by | | LABORATORY | | | [facility] [address], | | [place] | | | [place] [address] | | | + + + + + + + | Specimen | + + | Blood | + + + + + + + | Performing | Address | City/State/Zipcode | Phone Number | | Organization | | | | + + + + + | [facility] | [address] | [place] [address] | | | [facility] | | | | | LABORATORY [place] | | | | + + + + + POC Glucose (06/13/20182) + + + + + | Component | Value | Ref Range | Performed At | + + + + + | Glucose, POC | 152 (H)Comment: | 65 - 99 mg/dL | [facility] | | | Performed by [facility] [address] | | [facility] | | | [address] [place] | | MEDICAL CENTER | | | [address] | | LABORATORY | | | | | [place] | + + + + + + + | Specimen | + + | Blood | + + + + + + + | Performing | Address | City/State/Zipcode | Phone Number | | Organization | | | | + + + + + | [facility] | [address] | [place] [address] | | | [facility] | | | | | LABORATORY [place] | | | | + + + + + POC Glucose (06/12/2018 2200) + + + + + | Component | Value | Ref Range | Performed At | + + + + + | Glucose, POC | 172 (H)Comment: | 65 - 99 mg/dL | [facility] | | | Performed by [facility] [address] | | [facility] | | | [address] [place], [place] | | [facility] | | | [address] | | LABORATORY | | | | | [place] | + + + + + + + | Specimen | + + | Blood | + + + + + + + | Performing | Address | City/State/Zipcode | Phone Number | | Organization | | | | + + + + + | [facility] | [address] | [place] [address] | | | [facility] | | | | | LABORATORY [place] | | | | + + + + + POC Glucose (06/12/2018 1641) + + + + + | Component | Value | Ref Range | Performed At | + + + + + | Glucose, POC | 132 (H)Comment: | 65 - 99 mg/dL | [facility] | | | Performed by [facility] [address] | | [facility] | | | [address] [place] | | [facility] | | | [address] | | LABORATORY | | | | | [place] | + + + + + + + | Specimen | + + | Blood | + + + + + + + | Performing | Address | City/State/Zipcode | Phone Number | | Organization | | | | + + + + + | [facility] | [address] | [place] [address] | | | [facility] | | | | | [place] | | | | + + + + + POC Glucose (06/12/2018 1602) + + + + + | Component | Value | Ref Range | Performed At | + + + + + | Glucose, POC | 126 (H)Comment: | 65 - 99 mg/dL | [facility] | | | Performed by [facility] [address] | | [facility] | | | [place] | | [facility]ICAL [facility]ENTER | | | [address] | | LABORATORY | | | | | CERNER | + + + + + + + | Specimen | + + | Blood | + + + + + + + | Performing | Address | City/State/Zipcode | Phone Number | | Organization | | | | + + + + + | [facility] | [address] | [place] [address] | | | [facility] | | | | | LABORATORY CERNER | | | | + + + + + POC Glucose (06/12/2018 1227) + + + + + | Component | Value | Ref Range | Performed At | + + + + + | Glucose, POC | 177 (H)Comment: | 65 - 99 mg/dL | [facility] | | | Performed by [facility] [address] | | [facility] | | | [address] [place], [place] | | [facility] | | | [address] | | LABORATORY | | | | | [place] | + + + + + + + | Specimen | + + | Blood | + + + + + + + | Performing | Address | City/State/Zipcode | Phone Number | | Organization | | | | + + + + + | [facility] | [address] | [place] [address] | | | [facility] | | | | | LABORATORY JAMINNER | | | | + + + + + POC Glucose (06/12/201859) + + + +-------- ---------+ | Component | Value | Ref Range | Perform ed At | + + + +-------- ---------+ | Glucose, POC | 98Comment: Performed by | 65 - 99 mg/dL | [facility] | | | [address], | | [facility] | | | [place] [address] | | MEDICAL CENTER | | |Performed by [facility] [address] [place] [address], [place] [address] | | LABORAT NADIA | | | | | [place] | + + + +-------- ---------+ + + | Specimen | + + | Blood | + + + + + + + | Performing | Address | City/State/Zipcode | Phone Number | | Organization | | | | + + + + + | [facility] | [address] | [place] [address] | | | [facility] | | | | | LABORATORY [place] | | | | + + + + + POC Glucose (06/12/2018 0600) + + + + + | Component | Value | Ref Range | Performed At | + + + + + | Glucose, POC | 100 (H)Comment: | 65 - 99 mg/dL | [facility] | | | Performed by [facility] [address] | | [facility] | | | [place] | | [facility] | | | [address] | | LABORATORY | | | | | CERNER | + + + + + + + | Specimen | + + | Blood | + + + + + + + | Performing | Address | City/State/Zipcode | Phone Number | | Organization | | | | + + + + + | [facility] | [address] | [place], [place] | | | [facility] | | | | | LABORATORY CERNER | | | | + + + + + POC Glucose (06/12/20188) + + + +-------- ---------+ | Component | Value | Ref Range | Perform ed At | + + + +-------- ---------+ | Glucose, POC | 87Comment: Performed by | 65 - 99 mg/dL | [facility] | | | [facility] [address], | | [facility] | | | [place], [place] | | [facility] | | |Performed by [facility] [address], [place], [place] | | [facility] | | | | | [facility] | + + + +-------- ---------+ + + | Specimen | + + | Blood | + + + + + + + | Performing | Address | City/State/Zipcode | Phone Number | | Organization | | | | + + + + + | [facility] | [address] | [place] [address] | | | [facility] | | | | | [place] | | | | + + + + + XR Chest AP Portable (06/12/2018 0333) + + + | Narrative | Performed [...] | Tim, Rad Results In - 06/12/2018 0419 PDT | | CHEST PORTABLE ONE VIEW [...] + +---------+ + + POC Glucose (06/12/2018 0315) + + + +-------- ---------+ | Component | Value | Ref Range | Perform ed At | + + + +-------- ---------+ | Glucose, POC | 98Comment: Performed by | 65 - 99 mg/dL | [facility] | | | [facility] [address] | | [facility] | | | [place] [address] | | [facility] | | |Performed by [facility] [address], [place] [address] | | [facility] | | | | | [facility] | + + + +-------- ---------+ + + | Specimen | + + | Blood | + + + + + + + | Performing | Address | City/State/Zipcode | Phone Number | | Organization | | | | + + + + + | [facility] | [address] | [place] [address] | | | [facility] | | | | | LABORATORY [facility] | | | | + + + + + ECG 12 lead (06/12/2018311) + + + | Narrative | Performed At | + + + | HEART RATE:60 | [facility] | | bpmRR Interval:1000 msAtrial Rate:61 msP-R Interval:176 msP | [facility] | | Duration:184 msP Horizontal [place]:5 degP Front [place]:55 degQ Onset:508 | | | msQRSD Interval:104 msQT Interval:452 msQTcB:452 msQTcF:452 msQRS | | | Horizontal [place]:129 degQRS Columbia:-53 degI-40 Horizontal [place]:77 degI-40 | | | Front [place]:-44 degT-40 Horizontal [place]:204 degT-40 Front [place]:-83 | | | degT Horizontal [place]:95 degT Wave [place]:39 degS-T Horizontal [place]:79 | | | degS-T Front [place]:49 degSeverity:- ABNORMAL ECG -INTERP:SINUS | | | RHYTHMINTERP:CONSIDER RIGHT VENTRICULAR HYPERTROPHYINTERP:PROBABLE | | | INFERIOR INFARCT, AGE INDETERMINATEINTERP:BORDERLINE ST ELEVATION, | | | ANTERIOR LEADSElectronically signed by: ELIZABETH CAMPBELL 06-12-2018 | | | 07:37:14 | | |QRS Horizontal [place]:129 deg | | |QRS [place]:-53 deg | | |I-40 Horizontal [place]:77 deg | | |I-40 Front [place]:-44 deg | | |T-40 Horizontal [place]:204 deg | | |T-40 Front [place]:-83 deg | | |T Horizontal [place]:95 deg | | |T Wave [place]:39 deg | | |S-T Horizontal [place]:79 deg | | |S-T Front [place]:49 deg | | |Severity:- ABNORMAL ECG - [...] | + + + + + | [facility] | [address] | [place] [address] | [phone] | + + + + + CBC no Differential (06/12/2018311) + + + + + | Component | Value | Ref Range | Performed At | + + + + + | WBC | 12.1 (H) | 3.8 - 11.0 K/uL | [facility] | | | | | [facility] | [facility] | | | | | LAB[facility]ATORY | | | | | [place] | + + + + + | RBC | 3.66 (L) | 3.70 - 5.10 M/uL | [facility] | | | [facility] | | | | | LAB[facility]ATORY | | | | | [facility] | + + + + + | Hgb | 10.7 (L) | 11.3 - 15.5 g/dL | [facility] | | | | [facility] | | | | | LAB[facility]ATORY | | | | | [facility] | + + + + + | Hct | 31.9 (L) | 34.0 - 46.0 % | [facility] | | | | | [facility] | | [facility] | | | | | LAB[facility]ATORY | | | | | [facility] | + + + + + | MCV | 87.2 | 80.0 - 100.0 fL | [facility] | | | | | [facility] | | [facility] | | | | | LAB[facility]ATORY | | | | | [facility] | + + + + + | MCH | 29.4 | 27.0 - 34.0 pg | [facility] | | | | | [facility] | | [facility] | | | | | LABORATORY | | | | | [facility] | + + + + + | MCHC | 33.7 | 32.0 - 35.5 g/dL | [facility] | | | | | [facility] | | [facility] | | | | | LAB[facility]ATORY | | | | | [facility] | + + + + + | RDW-CV | 15.5 | 11.0 - 15.5 % | [facility] | | | | | [facility] | | | [facility] | | | | | LAB[facility]ATORY | | | | | [facility] | + + + + + | Platelet Count | 244 | 150 - 400 K/uL | [facility] | | | | | [facility] | | | [facility] | | | | | LAB[facility]ATORY | | | | | [facility] | + + + + + | MPV | 6.5 (L)Comment: | 7.5 - 11.2 fL | [facility] | | | Performed by [facility] [address] | | [facility] | | | [place] | | [facility] | | | [address] | | LABORATORY | | | | | [facility] | + + + + + + + | Specimen | + + | Blood | + + + + + + + | Performing | Address | City/State/Zipcode | Phone Number | | Organization | | | | + + + + + | [facility] | [address] | [place] [address] | | | [facility] | | | | | [facility] | | | | + + + + + Basic Metabolic Panel (06/12/2018311) + + + + + | Component | Value | Ref Range | Performed At | + + + + + | NA | 146 (H) | 135 - 145 mmol/L | [facility] | | | | | [facility] | [facility] | | | | | LAB[facility]ATORY | | | | | [facility] | + + + + + | K | 4.8 | 3.5 - 5.0 mmol/L | [facility] | | | | | [facility] | | | [facility] | | | | | LAB[facility]ATORY | | | | | [facility] | + + + + + | CL | 111 (H) | 99 - 109 mmol/L | [facility] | | [facility] | | [facility] | | | [facility] | | | | | LAB[facility]ATORY | | | | | [facility] | + + + + + | CO2 | 28 | 21 - 28 mmol/L | [facility] | | | | | [facility] | | | [facility] | | | | | LABORATORY | | | | | [facility] | + + + + + | ANION GAP | 7 | 5 - 16 mmol/L | [facility] | | | | | [facility] | | | | [facility] | | | | | LABORATORY | | | | | [facility] | + + + + + | CALCIUM | 8.5 | 8.5 - 10.2 mg/dL | [facility] | | | | | [facility] | | | | | [facility] | | | | | LABORATORY | | | | | [facility] | + + + + + | BUN | 22 | 8 - 25 mg/dL | [facility] | | | | | [facility] | | | | [facility] | | | | | LABORATORY | | | | | [facility] | + + + + + | Creatinine, | 1.14 (H) | 0.50 - 1.00 mg/dL | [facility] | | Serum/Plasma | | | [facility] | | | | | [facility] | | | | | LABORATORY | | | | | [facility] | + + + + + | GLUCOSE | 96 | 65 - 99 mg/dL | [facility] | | | | | [facility] | | | | | [facility] | | | | | LABORATORY | | | | | [facility] | + + + + + | Estimated GFR | 51 (L)Comment: eGFR<60 | >=90 mL/min/1.73m2 | [facility] | | | consistent with impaired | | [facility] | | | kidney | | [facility] | | | function.Performed by | | LABORATORY | | | [facility] [address], | | [place] | | | [place] [address] | | | + + + + + + + | Specimen | + + | Blood | + + + + + + + | Performing | Address | City/State/Zipcode | Phone Number | | Organization | | | | + + + + + | [facility] | [address] | [place] [address] | | | [facility] | | | | | [place] | | | | + + + + + POC Glucose (06/12/2018 0239) + + + + + | Component | Value | Ref Range | Performed At | + + + + + | Glucose, POC | 107 (H)Comment: | 65 - 99 mg/dL | [facility] | | | Performed by [facility] [address] | | [facility] | | | [address] [place] | | [facility] | | | [address] | | LABORATORY | | | | | C[facility]ER | + + + + + + + | Specimen | + + | Blood | + + + + + + + | Performing | Address | City/State/Zipcode | Phone Number | | Organization | | | | + + + + + | [facility] | [address] | [place], [place] | | | [facility] | | | | | LABORATORY [facility] | | | | + + + + + POC Glucose (06/12/2018134) + + + +-------- ---------+ | Component | Value | Ref Range | Perform ed At | + + + +-------- ---------+ | Glucose, POC | 99Comment: Performed by | 65 - 99 mg/dL | [facility] | | | [facility] [address], | | [facility] | | | [place], [place] | | [facility] | | |Performed by [facility] [address], [place], [place] | | [facility] | | | | | C[facility]ER | + + + +-------- ---------+ + + | Specimen | + + | Blood | + + + + + + + | Performing | Address | City/State/Zipcode | Phone Number | | Organization | | | | + + + + + | [facility] | [address] | [place] [address] | | | [facility] | | | | | [place] | | | | + + + + + POC Glucose (06/11/20182357) + + + + + | Component | Value | Ref Range | Performed At | + + + + + | Glucose, POC | 105 (H)Comment: | 65 - 99 mg/dL | [facility] | | | Performed by [facility] [address] | | [facility] | | | [address], [place] | | [facility] | | | [address] | | LABORATORY | | | | | CERNER | + + + + + + + | Specimen | + + | Blood | + + + + + + + | Performing | Address | City/State/Zipcode | Phone Number | | Organization | | | | + + + + + | [facility] | [address] | [place] [address] | | | [facility] | | | | | LABORATORY [facility] | | | | + + + + + POC Glucose (06/11/2018 2319) + + + + + | Component | Value | Ref Range | Performed At | + + + + + | Glucose, POC | 113 (H)Comment: | 65 - 99 mg/dL | [facility] | | | Performed by [facility] [address] | | [facility] | | | [place] | | [facility] | | | [address] | | LABORATORY | | | | | CERNER | + + + + + + + | Specimen | + + | Blood | + + + + + + + | Performing | Address | City/State/Zipcode | Phone Number | | Organization | | | | + + + + + | [facility] | [address] | [place] [address] | | | [facility] | | | | | LABORATORY [facility] | | | | + + + + + Potassium Whole Blood (06/11/20182300) + + + + + | Component | Value | Ref Range | Performed At | + + + + + | K | 5.4 (H)Comment: | 3.5 - 5.0 mmol/L | [facility] | | | Performed by [facility] [address] | | [facility] | | | [place] | | [facility] | | | [address] | | LABORATORY | | | | | [place] | + + + + + + + | Specimen | + + | Blood | + + + + + + + | Performing | Address | City/State/Zipcode | Phone Number | | Organization | | | | + + + + + | [facility] | [address] | [place] [address] | | | [facility] | | | | | LABORATORY [place] | | | | + + + + + Glucose, Respiratory (06/11/2018 2301) + + + + + | Component | Value | Ref Range | Performed At | + + + + + | GLUCOSE | 112 (H)Comment: | 65 - 99 mg/dL | [facility] | | | Performed by [facility] [address] | | [facility] | | | [place] | | [facility] | | | [address] | | LABORATORY | | | | | CERNER | + + + + + + + | Specimen | + + | Blood | + + + + + + + | Performing | Address | City/State/Zipcode | Phone Number | | Organization | | | | + + + + + | [facility] | [address] | [place] [address] | | | [facility] | | | | | LABORATORY [place] | | | | + + + + + Blood Gas, Arterial (06/11/20182300) + + + ----+ + | Component | Value | Ref Range | Performed At | + + + ----+ + | pH, Arterial | 7.35 (L) | 7.37 - 7.47 | [facility] | | | | | [place] | | | | | [facility] | | | | | LABORATORY | | | | | [place] | + + + ----+ + | pCO2, Arterial | 49 (H) | 32 - 43 mmHg | [facility] | | | | | [facility] | | | | | [facility] | | | | | LABORATORY | | | | | [facility] | + + + ----+ + | pO2, Arterial | 101 (H) | 65 - 80 mmHg | [facility] | | | | | [facility] | | | | | [facility] | | | | | LABORATORY | | | | | [facility] | + + + ----+ + | Base Excess, | 1.7 | -2.5 - 2.5 mmol /L | [facility] | | Arterial | | | [facility] | | | | | [facility] | | | | | LABORATORY | | | | | [facility] | + + + ----+ + | HCO3, Arterial | 27.3 | 23.0 - 28.0 mmo l/L | [facility] | | | | | [facility] | | | | | [facility] | | | | | LABORATORY | | | | | [facility] | + + + ----+ + | FiO2 | 40 | | [facility] | | | | | [facility] | | | | | [facility] | | | | | LABORATORY | | | | | [facility] | + + + ----+ + | ROUTE | PSV 8/5 | | [facility] | | | | | [facility] | | | | | [facility] | | | | | LABORATORY | | | | | [facility] | + + + ----+ + | Methemoglobin, | 0.8 | 0.4 - 1.5 % | [facility] | | Venous | | | [facility] | | | | | [facility] | | | | | LABORATORY | | | | | [facility] | + + + ----+ + | Comment | SPO2 100 RR 20 | | [facility] | | | | | [facility] | | | | | [facility] | | | | | LABORATORY | | | | | [facility] | + + + ----+ + | O2 Content, Arterial | 15.8 | 15.0 - 23.0 % | [facility] | | | | | [facility] | | | | | [facility] | | | | | LABORATORY | | | | | [facility] | + + + ----+ + | Carboxyhemoglobin | 1.1 | 1.0 - 3.0 % | [facility] | | | | | [facility] | | | | | [facility] | | | | | LABORATORY | | | | | C[facility] | + + + ----+ + | O2SAT COOX ARTERIAL | 95.9Comment: Performed | 92.0 - 99.0 % | [facility] | | | by [facility] [address], | | [facility] | | | [place] [address] | | [facility] | | |Performed by [facility] [address], [place] [address] | | LABORATORY | | | | | CERNER | + + + ----+ + + + | Specimen | + + | Blood - Artery | + + + + + + + | Performing | Address | City/State/Zipcode | Phone Number | | Organization | | | | + + + + + | [facility] | [address] | [place] [address] | | | [facility] | | | | | LABORATORY [facility] | | | | + + + + + POC Glucose (06/11/20182155) + + + + + | Component | Value | Ref Range | Performed At | + + + + + | Glucose, POC | 116 (H)Comment: | 65 - 99 mg/dL | [facility] | | | Performed by [facility] [address] | | [facility] | | | [address] [place] | | [facility]ENTER | | | [address] | | LABORATORY | | | | | CERNER | + + + + + + + | Specimen | + + | Blood | + + + + + + + | Performing | Address | City/State/Zipcode | Phone Number | | Organization | | | | + + + + + | [facility] | [address] | [place] [address] | | | [facility] | | | | | LABORATORY [place] | | | | + + + + + POC Glucose (06/11/20182028) + + + + + | Component | Value | Ref Range | Performed At | + + + + + | Glucose, POC | 147 (H)Comment: | 65 - 99 mg/dL | [facility] | | | Performed by [facility] [address] | | [facility] | | | [address], [place], [place] | | [facility] | | | [address] | | LABORATORY | | | | | CERNER | + + + + + + + | Specimen | + + | Blood | + + + + + + + | Performing | Address | City/State/Zipcode | Phone Number | | Organization | | | | + + + + + | [facility] | [address] | [place] [address] | | | [facility] | | | | | LABORATORY [facility] | | | | + + + + + Potassium (06/11/20181957) + + + +-------- ---------+ | Component | Value | Ref Range | Perform ed At | + + + +-------- ---------+ | K | 3.9Comment: Performed | 3.5 - 5.0 mmol/L | [facility] | | | by [facility] [address], | | [facility] | | | [place] [address] | | [facility] | | |Performed by [facility] [address], [place] [address] | | LAB[facility] | | | | | CERNER | + + + +-------- ---------+ + + | Specimen | + + | Blood | + + + + + + + | Performing | Address | City/State/Zipcode | Phone Number | | Organization | | | | + + + + + | [facility] | [address] | [place] [address] | | | [facility] | | | | | LAB[facility]ATORY [place] | | | | + + + + + POC Glucose (06/11/20181851) + + + + + | Component | Value | Ref Range | Performed At | + + + + + | Glucose, POC | 156 (H)Comment: | 65 - 99 mg/dL | [facility] | | | Performed by [facility] [address] | | [facility] | | | [address], [place] | | MEDICAL CENTER | | | [address] | | LABORATORY | | | | | CERNER | + + + + + + + | Specimen | + + | Blood | + + + + + + + | Performing | Address | City/State/Zipcode | Phone Number | | Organization | | | | + + + + + | [facility] | [address] | [place] [address] | | | [facility] | | | | | LABORATORY [facility] | | | | + + + + + ECG 12 lead (06/11/2018 1659) + + + | Narrative | Performed At | + + + | HEART RATE:72 | [facility] | | bpmRR Interval:833 msAtrial Rate:72 msP-R Interval:176 msP | [facility] | | Duration:180 msP Horizontal Columbia:-10 degP Front [place]:68 degQ Onset:512 | | | msQRSD Interval:110 msQT Interval:444 msQTcB:486 msQTcF:472 msQRS | | | Horizontal [place]:112 degQRS Columbia:-63 degI-40 Horizontal Columbia:100 | | | degI-40 Front [place]:-58 degT-40 Horizontal [place]: degT-40 Front Columbia:160 | | | degT Horizontal [place]:104 degT Wave [place]:-11 degS-T Horizontal | | | Columbia:104 degS-T Front [place]:32 degSeverity:- ABNORMAL ECG -INTERP:SINUS | | | RHYTHMINTERP:PROBABLE LEFT ATRIAL ABNORMALITYINTERP:NONSPECIFIC IVCD | | | WITH LADINTERP:INFERIOR INFARCT, AGE INDETERMINATEINTERP:LATERAL | | | INFARCT, OLDElectronically signed by: ELIZABETH CAMPBELL 06-12-2018 | | | 11:18:02 | | |QRS Horizontal [place]:112 deg | | |QRS Columbia:-63 deg | | |I-40 Horizontal [place]:100 deg | | |I-40 Front [place]:-58 deg | | |T-40 Horizontal [place]: deg | | |T-40 Front [place]:160 deg | | |T Horizontal [place]:104 deg | | |T Wave [place]:-11 deg | | |S-T Horizontal [place]:104 deg | | |S-T Front [place]:32 deg | | |Severity:- ABNORMAL ECG - [...] + + | [facility] | [address] | [place] [address] | [phone] | + + + + + PTT (06/11/2018 1637) + + + + + | Component | Value | Ref Range | Performed At | + + + + + | PTT | 32Comment: Deep venous | 26 - 36 sec | [facility] | | | thrombosis or pulmonary | | [facility] | | | embolism therapeutic | | [facility] | | | heparin levels of 0.3 to | | LABORATORY | | | 0.7 Units/mL anti | | [facility] | | | FactorXa levels usually | | | | | correspond to an aPTT of | | | | | 65 to 99 seconds. Acute | | | | | cardiac syndrome | | | | | therapeutic range based | | | | | on heparin levels of 0.2 | | | | | to 0.5 usually | | | | | correspond to an aPTT of | | | | | 57 to 76 seconds. | | | | | Pediatric guidelines | | | | | suggested heparin levels | | | | | of 0.35 to 0.7 usually | | | | | correspond to an aPTT of | | | | | 69 to 99 | | | | | seconds.Performed by [facility] | | | | | [address], | | | | | [place] [address] | | | + + + + + + + | Specimen | + + | Blood | + + + + + + + | Performing | Address | City/State/Zipcode | Phone Number | | Organization | | | | + + + + + | [facility] | [address] | [place] [address] | | | [facility] | | | | | LAB[facility]AT[facility] [place] | | | | + + + + + Oliveime INR (06/11/2018 1637) + + + + + | Component | Value | Ref Range | Performed At | + + + + + | Protime | 14.6 (H) | 12.0 - 14.2 sec | [facility] | | | | | [facility] | | | | | [facility] | | | | | LABORATORY | | | | | [facility] | + + + + + | INR | 1.2 (H)Comment: Usual | 0.9 - 1.1 | [facility] | | | oral anticoagulant | | [facility] | | | range: 2.0 to 3.0 High | | [facility] | | | level oral | | LABORATORY | | | anticoagulant range: 2.5 | | [facility] | | | to 3.5Performed by [facility] | | | | | [address] [place], | | | | | [place] [address] | | | + + + + + + + | Specimen | + + | Blood | + + + + + + + | Performing | Address | City/State/Zipcode | Phone Number | | Organization | | | | + + + + + | [facility] | [address] | [place] [address] | | | [facility] | | | | | LABORATORY [facility] | | | | + + + + + Comprehensive Metabolic Panel (06/11/2018 1637) + + + + + | Component | Value | Ref Range | Performed At | + + + + + | NA | 146 (H) | 135 - 145 mmol/L | [facility] | | | | | [facility] | | | | | [facility] | | | | | LABORATORY | | | | | [facility] | + + + + + | K | 4.3 | 3.5 - 5.0 mmol/L | [facility] | | | | | [facility] | | | | | [facility] | | | | | LABORATORY | | | | | [facility] | + + + + + | CL | 109 | 99 - 109 mmol/L | [facility] | | | | | [facility] | | | | | [facility] | | | | | LABORATORY | | | | | [facility] | + + + + + | CO2 | 28 | 21 - 28 mmol/L | [facility] | | | | | [facility] | | | | | [facility] | | | | | LABORATORY | | | | | [facility] | + + + + + | CALCIUM | 9.5 | 8.5 - 10.2 mg/dL | [facility] | | | | | [facility] | | | | | [facility] | | | | | LABORATORY | | | | | [facility] | + + + + + | ANION GAP | 9 | 5 - 16 mmol/L | [facility] | | | | | [facility] | | | | | [facility] | | | | | LABORATORY | | | | | [facility] | + + + + + | ALBUMIN | 4.2 | 3.3 - 4.8 g/dL | [facility] | | | | | [facility] | | | | | [facility] | | | | | LABORATORY | | | | | [facility] | + + + + + | BUN | 18 | 8 - 25 mg/dL | [facility] | | | | | [facility] | | | | | [facility] | | | | | LABORATORY | | | | | [facility] | + + + + + | Creatinine, | 1.07 (H) | 0.50 - 1.00 mg/dL | [facility] | | Serum/Plasma | | | [facility] | | | | | [facility] | | | | | LABORATORY | | | | | [facility] | + + + + + | GLUCOSE | 120 (H) | 65 - 99 mg/dL | [facility] | | | | | [facility] | | | | | [facility] | | | | | LAB[facility]ATORY | | | | | [facility] | + + + + + | Total protein | 6.0 (L) | 6.1 - 7.8 g/dL | [facility] | | | | | [facility] | | | | | [facility] | | | | | LABORATORY | | | | | [facility] | + + + + + | ALK PHOS | 72 | 35 - 115 U/L | [facility] | | | | | [facility] | | | | | [facility] | | | | | LABORAT[facility] | | | | | [facility] | + + + + + | ALT | 9 (L) | 10 - 65 U/L | [facility] | | | | | [facility] | | | | | [facility] | + + + + + | AST | 29 | 10 - 45 U/L | [facility] | | | | | [facility] | | | | | [facility] | + + + + + | Bilirubin Total | 0.4 | 0.2 - 1.1 mg/dL | [facility] | | | | | [facility] | | | | | [facility] | + + + + + | Estimated GFR | 55 (L)Comment: eGFR<60 | >=90 mL/min/1.73m2 | [facility] | | | consistent with impaired | | [facility] | | | [facility] | | [facility] | | | function.Performed by | | LABORATORY | | | [facility] [address], | | [facility] | | | [place] [address] | | | + + + + + + + | Specimen | + + | Blood | + + + + + + + | Performing | Address | City/State/Zipcode | Phone Number | | Organization | | | | + + + + + | [facility] | [address] | [place] [address] | | | [facility] | | | | | [place] | | | | + + + + + CBC no Differential (06/11/2018 1637) + + + + + | Component | Value | Ref Range | Performed At | + + + + + | WBC | 16.3 (H) | 3.8 - 11.0 K/uL | [facility] | [facility] | | | | | [facility]ORY | | | | | [facility] | + + + + + | RBC | 3.68 (L) | 3.70 - 5.10 M/uL | [facility] | [facility] | | | | | [facility]ATORY | | | | | [facility] | + + + + + | Hgb | 11.0 (L) | 11.3 - 15.5 g/dL | [facility] | | | | | [facility]ORY | | | | | [facility] | + + + + + | Hct | 32.0 (L) | 34.0 - 46.0 % | [facility] | [facility] | | | | | [facility]ORY | | | | | [facility] | + + + + + | MCV | 87.0 | 80.0 - 100.0 fL | [facility] | [facility] | | | | | [facility] | | | | | [facility] | + + + + + | MCH | 29.9 | 27.0 - 34.0 pg | [facility] | | [facility] | | | | | [facility] | | | | | [facility] | + + + + + | MCHC | 34.4 | 32.0 - 35.5 g/dL | [facility] | | [facility] | | | | | [facility]ORY | | | | | [facility] | + + + + + | RDW-CV | 15.3 | 11.0 - 15.5 % | [facility] | | | | [facility] | | | | | [facility]ORY | | | | | [facility] | + + + + + | Platelet Count | 228 | 150 - 400 K/uL | [facility] | | [facility] | | | | | [facility]ORY | | | | | [facility] | + + + + + | MPV | 6.3 (L)Comment: | 7.5 - 11.2 fL | [facility] | | | Performed by [facility] [address] | [facility] | | | [address] [place] | | [facility] | | | [id number] | | LABORATORY | | | | | [facility] | + + + + + + + | Specimen | + + | Blood | + + + + + + + | Performing | Address | City/State/Zipcode | Phone Number | | Organization | | | | + + + + + | [facility] | [address] | [place] [address] | | | [facility] | | | | | LABORATORY [facility] | | | | + + + + + Lactic Acid, Arterial, Respiratory (06/11/2018 1636) + + + + + | Component | Value | Ref Range | Performed At | + + + + + | Lactate, Arterial | 1.0Comment: Performed | 0.5 - 1.6 mmol/L | [facility] | | | by [facility] [address], | | [facility] | | | [place], [place] | | MEDICAL [facility]ENTER | | |Performed by [place] [address], [place], [place] | | LABORATORY | | | | | CERNER | + + + + + + + | Specimen | + + | Blood | + + + + + + + | Performing | Address | City/State/Zipcode | Phone Number | | Organization | | | | + + + + + | [facility] | [address] | [place], [place] | | | [facility] | | | | | LABORATORY [facility] | | | | + + + + + Calcium, Ionized, Respiratory (06/11/2018 1636) + + + + + | Component | Value | Ref Range | Performed At | + + + + + | Calcium, Ionized | 5.09 | 4.75 - 5.30 mg/dL | [facility] | | (mg/dL) | | | [facility] | | | | | [facility] | | | | | LABORATORY | | | | | CERN[facility] | + + + + + | Calcium, pH | 5.06Comment: Performed | 4.75 - 5.30 mg/dL | [facility] | | Normalized | by [place] [address], | | [facility] | | | [place], [place] | | [facility] | | |Performed by [facility] [address], [place], [place] | | LABORATORY | | | | | CERNER | + + + + + + + | Specimen | + + | Blood | + + + + + + + | Performing | Address | City/State/Zipcode | Phone Number | | Organization | | | | + + + + + | [facility] | [address] | [place], [place] | | | [facility] | | | | | LABORATORY [facility] | | | | + + + + + Glucose, Respiratory (06/11/2018 1636) + + + + + | Component | Value | Ref Range | Performed At | + + + + + | GLUCOSE | 122 (H)Comment: | 65 - 99 mg/dL | [facility] | | | Performed by [facility] [address] | | [facility] | | | [address] | | [facility] | | | [address] | | LABORATORY | | | | | [place] | + + + + + + + | Specimen | + + | Blood | + + + + + + + | Performing | Address | City/State/Zipcode | Phone Number | | Organization | | | | + + + + + | [facility] | [address] | [place] [address] | | | [facility] | | | | | LABORATORY [facility] | | | | + + + + + Blood Gas, Arterial (06/11/2018 1636) + + + ----+ + | Component | Value | Ref Range | Performed At | + + + ----+ + | pH, Arterial | 7.39 | 7.37 - 7.47 | [facility] | | | | | [facility] | | | | | [facility]ENTER | | | | | LABORATORY | | | | | CERN[facility] | + + + ----+ + | pCO2, Arterial | 46 (H) | 32 - 43 mmHg | [facility] | | | | | [facility] | | | | | [facility] | | | | | LABORATORY | | | | | C[facility] | + + + ----+ + | pO2, Arterial | 141 (H) | 65 - 80 mmHg | [facility] | | | | | [facility] | | | | | [facility] | | | | | LABORATORY | | | | | [facility] | + + + ----+ + | Base Excess, | 2.6 (H) | -2.5 - 2.5 mmol /L | [facility] | | Arterial | | | [facility] | | | | | [facility] | | | | | LABORATORY | | | | | CERNER | + + + ----+ + | HCO3, Arterial | 27.6 | 23.0 - 28.0 mmo l/L | [facility] | | | | | [facility] | | | | | [facility] | | | | | LABORATORY | | | | | CERNER | + + + ----+ + | FiO2 | 50 | | [facility] | | | | | [facility] | | | | | [facility]ENTER | | | | | LABORATORY | | | | | CERNER | + + + ----+ + | ROUTE | SIMV | | [facility] | | | | | [facility] | | | | | [facility] | | | | | LABORATORY | | | | | CERNER | + + + ----+ + | Rate | 14 | | [facility] | | | | | [facility] | | | | | [facility]ENTER | | | | | LABORATORY | | | | | CERNER | + + + ----+ + | VT | 550 | | [facility] | | | | | [facility] | | | | | [facility]ICAL CENTER | | | | | LABORATORY | | | | | CERNER | + + + ----+ + | PEEP | 5 | | [facility] | | | | | [facility] | | | | | [facility]ENTER | | | | | LABORATORY | | | | | CERNER | + + + ----+ + | Methemoglobin, | 1.0 | 0.4 - 1.5 % | [facility] | | Venous | | | [facility] | | | | | [facility]ENTER | | | | | LABORATORY | | | | | CERNER | + + + ----+ + | Comment | PS8 [id number] | | [facility] | | | | | [facility] | | | | | [facility] | | | | | LABORATORY | | | | | CERNER | + + + ----+ + | O2 Content, Arterial | 15.7 | 15.0 - 23.0 % | [facility] | | | | | [facility] | | | | | [facility] | | | | | LABORATORY | | | | | CERN[facility] | + + + ----+ + | Carboxyhemoglobin | 1.2 | 1.0 - 3.0 % | [facility] | | | | | [facility] | | | | | [facility] | | | | | LABORATORY | | | | | CERNER | + + + ----+ + | O2SAT COOX ARTERIAL | 97.3Comment: Performed | 92.0 - 99.0 % | [facility] | | | by [facility] [address], | | [facility] | | | [place] [address] | | [facility] | | |Performed by [facility] [address], [place] [address] | | LABORATORY | | | | | CERNER | + + + ----+ + + + | Specimen | + + | Blood - Artery | + + + + + + + | Performing | Address | City/State/Zipcode | Phone Number | | Organization | | | | + + + + + | [facility] | [address] | [place] [address] | | | [facility] | | | | | LABORATORY [place] | | | | + + + + + XR Chest AP Portable (06/11/2018 1634) + + + | Narrative | Performed At | + + + | CHEST SINGLE VIEW CLINICAL INFORMATION: Post operative | [facility] | | coronary artery bypass graft. COMPARISON: Two view chest dated | | | 06/07/2018. FINDINGS: Interval postoperative changes of median | | | sternotomy and CABG. Mild bibasilar densities, likely | | | atelectasis. No pneumothorax. Cardiac silhouette is unchanged. | | | Lines and support devices as follows: Endotracheal tube tip is | | | 4.2 cm above the candice. Right IJ central venous catheter tip is in | | | the region of the atriocaval junction. Distal enteric tube tip is | | | within the stomach. Mediastinal and left pleural drains are in place. | | | IMPRESSION: 1. Expected postoperative changes status post median | | | sternotomy and CABG. 2. Lines and support devices in expected, | | | appropriate positions as described. Signed by: Janak | | | [facility] [place] Sign Date/Time: 06/11/2018 5:23 PM | | + + + + + | Procedure Note | + + | Tim, Rad Results In - 06/11/2018 1727 PDT | | CHEST SINGLE VIEW | [...] + + Lactic Acid, Arterial, Surgery (06/11/2018 1525) + + + + + | Component | Value | Ref Range | Performed At | + + + + + | Lactate, Arterial | 1.9 (H)Comment: | 0.5 - 1.6 mmol/L | [facility] | | | Performed by [facility] [address] | | [facility] | | | [place] | | [facility] | | | [address] | | LABORATORY | | | | | CERNER | + + + + + + + | Specimen | + + | Blood | + + + + + + + | Performing | Address | City/State/Zipcode | Phone Number | | Organization | | | | + + + + + | [facility] | [address] | [place] [address] | | | [facility] | | | | | LABORATORY [facility] | | | | + + + + + Blood Gas , Arterial, Surgery (06/11/2018 1525) + + + ----+ + | Component | Value | Ref Range | Performed At | + + + ----+ + | pH, Arterial | 7.37 | 7.37 - 7.47 | [facility] | | | | | [facility] | | | | | [facility] | | | | | LABORATORY | | | | | [facility] | + + + ----+ + | pCO2, Arterial | 42 | 32 - 43 mmHg | [facility] | | | | | [facility] | | | | | [facility] | | | | | LABORATORY | | | | | C[facility] | + + + ----+ + | pO2, Arterial | 122 (H) | 65 - 80 mmHg | [facility] | | | | | [facility] | | | | | [facility] | | | | | LABORATORY | | | | | [facility] | + + + ----+ + | O2 Content, Arterial | 11.4 (L) | 15.0 - 23.0 % | [facility] | | | | | [facility] | | | | | [facility]ENTER | | | | | LABORATORY | | | | | [facility] | + + + ----+ + | HGB O2 SAT | 96.7 | 92.0 - 99.9 % | [facility] | | | | | [facility] | | | | | [facility] | | | | | LABORATORY | | | | | [facility] | + + + ----+ + | Hgb | 8.2 (L) | 11.3 - 15.5 g/d L | [facility] | | | | | [facility] | | | | | [facility] | | | | | LABORATORY | | | | | [facility] | + + + ----+ + | HCO3, Arterial | 24.2 | 23.0 - 28.0 mmo l/L | [facility] | | | | | [facility] | | | | | [facility] | | | | | LABORATORY | | | | | [facility] | + + + ----+ + | Base Excess, | -0.4 | -2.5 - 2.5 | [facility] | | Arterial | | | [facility] | | | | | [facility] | | | | | LABORATORY | | | | | C[facility] | + + + ----+ + | Carboxyhemoglobin | 1.4 | 1.0 - 3.0 % | [facility] | | | | | [facility] | | | | | [facility] | | | | | LABORATORY | | | | | [facility] | + + + ----+ + | Methemoglobin, | 0.7 | 0.4 - 1.5 % | [facility] | | Venous | | | [facility] | | | | | [facility] | | | | | LABORATORY | | | | | [facility] | + + + ----+ + | Calcium, Ionized | 5.38 (H) | 4.75 - 5.30 mg/ dL | [facility] | | (mg/dL) | | | [facility] | | | | | [facility] | | | | | LABORATORY | | | | | [facility] | + + + ----+ + | Calcium, pH | 5.30 | 4.75 - 5.30 mg/ dL | [facility] | | Normalized | | | [facility] | | | | | [facility] | | | | | LABORATORY | | | | | [facility] | + + + ----+ + | K | 5.2 (H) | 3.5 - 5.0 mmol/ L | [facility] | | | | | [facility] | | | | | [facility] | | | | | LABORATORY | | | | | [facility] | + + + ----+ + | GLUCOSE | 107 (H) | 65 - 99 mg/dL | [facility] | | | | | [facility] | | | | | [facility] | | | | | LABORATORY | | | | | C[facility] | + + + ----+ + | NA | 142Comment: Performed | 135 - 145 mmol/ L | [facility] | | | by [facility] [address], | | [facility] | | | [place] [address] | | [facility] | | |Performed by [facility] [address], [place] [address] | | LABORATORY | | | | | CERNER | + + + ----+ + + + | Specimen | + + | Blood | + + + + + + + | Performing | Address | City/State/Zipcode | Phone Number | | Organization | | | | + + + + + | [facility] | [address] | [place] [address] | | | [facility] | | | | | [place] | | | | + + + + + DIC Panel (06/11/2018 1456) + + + + + | Component | Value | Ref Range | Performed At | + + + + + | D-DIMER, | 2.98 (H)Comment: This | 0.00 - 0.49 ug/mL | [facility] | | QUANTITATIVE | quantitative D Dimer | FEU | [facility] | | | assay has been evaluated | | [facility]ENTER | | | for screening for | | LABORATORY | | | venous thrombotic | | [facility] | | | disease, and may be | | | | | useful in ruling out, | | | | | but not ruling in | | | | | disease. Values less | | | | | than 0.40 ug/mL have a | | | | | negative predictive | | | | | value of >95% for ruling | | | | | out large pulmonary | | | | | emboli or proximal deep | | | | | vein thrombosis. Distal | | | | | DVT are not excluded. | | | | | Rheumatoid factor may | | | | | falsely elevate the | | | | | determined D Dimer | | | | | levels. | | | + + + + + | FIBRINOGEN | 174 (L) | 211 - 419 mg/dL | [facility] | | | | | [facility] | | | | | [facility] | | | | | LABORATORY | | | | | C[facility] | + + + + + | INR | 1.4 (H)Comment: Usual | 0.9 - 1.1 | [facility] | | | oral anticoagulant | | [facility] | | | range: 2.0 to 3.0 High | | [facility]ENTER | | | level oral | | LABORATORY | | | anticoagulant range: 2.5 | | [facility] | | | to 3.5 | | | + + + + + | Platelet Count | 208 | 150 - 400 K/uL | [facility] | | | | | [facility] | | | | | [facility] | | | | | LABORATORY | | | | | [facility] | + + + + + | Protime | 17.4 (H) | 12.0 - 14.2 sec | [facility] | | | | | [facility] | | | | | [facility] | | | | | LABORATORY | | | | | [facility] | + + + + + | RBC MORPHOLOGY | Normal | Normal | [facility] | | | | | [facility] | | | | | [facility] | | | | | LABORATORY | | | | | [facility] | + + + + + | Thrombin Time, | 21.1 (H) | 15.6 - 20.0 sec | [facility] | | Patient | | | [facility] | | | | | [facility] | | | | | LABORATORY | | | | | C[facility] | + + + + + | Thrombin Time, | 16.0 | sec | [facility] | | Patient/PSO4 Mix | | | [facility] | | | | | [facility] | | | | | LABORATORY | | | | | C[facility] | + + + + + | aPTT, Patient | 31Comment: Deep venous | 26 - 36 sec | [facility] | | | thrombosis or pulmonary | | [facility] | | | embolism therapeutic | | [facility] | | | heparin levels of 0.3 to | | LABORATORY | | | 0.7 Units/mL anti | | [facility] | | | FactorXa levels usually | | | | | correspond to an aPTT of | | | | | 65 to 99 seconds. Acute | | | | | cardiac syndrom | | | | | therapeutic range based | | | | | on heparin levels of | | | | | 0.2 to 0.5 usually | | | | | correspond to an aPTT of | | | | | 57 to 76 | | | | | seconds. Pediatric | | | | | guidelines suggested | | | | | heparin levels of 0.35 | | | | | to 0.7 usually | | | | | correspond to an aPTT of | | | | | 69 to 99 | | | | | seconds.Performed by [facility] | | | | | [address] | | | | | [place] [address] | | | + + + + + + + | Specimen | + + | Blood | + + + + + + + | Performing | Address | City/State/Zipcode | Phone Number | | Organization | | | | + + + + + | [facility] | [address] | [place] [address] | | | [facility] | | | | | [place] | | | | + + + + + Lactic Acid, Arterial, Surgery (06/11/2018 1450) + + + + + | Component | Value | Ref Range | Performed At | + + + + + | Lactate, Arterial | 2.0 (H)Comment: | 0.5 - 1.6 mmol/L | [facility] | | | Performed by [facility] [address] | | [facility] | | | [place] | | [facility] | | | [address] | | LABORATORY | | | | | CERNER | + + + + + + + | Specimen | + + | Blood | + + + + + + + | Performing | Address | City/State/Zipcode | Phone Number | | Organization | | | | + + + + + | [facility] | [address] | [place] [address] | | | [facility] | | | | | LABORATORY [facility] | | | | + + + + + Blood Gas , Arterial, Surgery (06/11/2018 1450) + + + ----+ + | Component | Value | Ref Range | Performed At | + + + ----+ + | pH, Arterial | 7.37 | 7.37 - 7.47 | [facility] | | | | | [facility] | | | | | [facility] | | | | | LABORATORY | | | | | [facility] | + + + ----+ + | pCO2, Arterial | 43 | 32 - 43 mmHg | [facility] | | | | | [facility] | | | | | [facility] | | | | | LABORATORY | | | | | [facility] | + + + ----+ + | pO2, Arterial | 336 (H) | 65 - 80 mmHg | [facility] | | | | | [facility] | | | | | [facility] | | | | | LABORATORY | | | | | [facility] | + + + ----+ + | O2 Content, Arterial | 10.8 (L) | 15.0 - 23.0 % | [facility] | | | | | [facility] | | | | | [facility] | | | | | LABORATORY | | | | | [facility] | + + + ----+ + | HGB O2 SAT | 97.8 | 92.0 - 99.9 % | [facility] | | | | | [facility] | | | | | [facility] | | | | | LABORATORY | | | | | [facility] | + + + ----+ + | Hgb | 7.2 (L) | 11.3 - 15.5 g/d L | [facility] | | | | | [facility] | | | | | [facility] | | | | | LABORATORY | | | | | [facility] | + + + ----+ + | HCO3, Arterial | 24.2 | 23.0 - 28.0 mmo l/L | [facility] | | | | | [facility] | | | | | [facility] | | | | | LABORATORY | | | | | [facility] | + + + ----+ + | Base Excess, | -0.4 | -2.5 - 2.5 | [facility] | | Arterial | | | [facility] | | | | | [facility] | | | | | LABORATORY | | | | | [facility] | + + + ----+ + | Carboxyhemoglobin | 1.2 | 1.0 - 3.0 % | [facility] | | | | | [facility] | | | | | [facility] | | | | | LABORATORY | | | | | [facility] | + + + ----+ + | Methemoglobin, | 0.8 | 0.4 - 1.5 % | [facility] | | Venous | | | [facility] | | | | | [facility] | | | | | LABORATORY | | | | | [facility] | + + + ----+ + | Calcium, Ionized | 4.73 (L) | 4.75 - 5.30 mg/ dL | [facility] | | (mg/dL) | | | [facility] | | | | | [facility] | | | | | LABORATORY | | | | | [facility] | + + + ----+ + | Calcium, pH | 4.66 (L) | 4.75 - 5.30 mg/ dL | [facility] | | Normalized | | | [facility] | | | | | [facility] | | | | | LABORATORY | | | | | [facility] | + + + ----+ + | K | 5.3 (H) | 3.5 - 5.0 mmol/ L | [facility] | | | | | [facility] | | | | | [facility] | | | | | LABORATORY | | | | | [facility] | + + + ----+ + | GLUCOSE | 108 (H) | 65 - 99 mg/dL | [facility] | | | | | [facility] | | | | | [facility] | | | | | LABORATORY | | | | | [facility] | + + + ----+ + | NA | 141Comment: Performed | 135 - 145 mmol/ L | [facility] | | | by [facility] [address], | | [facility] | | | [place] [address] | | MEDICAL CENTER | | |Performed by [facility] [address], [place] [address] | | LABORATORY | | | | | CERNER | + + + ----+ + + + | Specimen | + + | Blood | + + + + + + + | Performing | Address | City/State/Zipcode | Phone Number | | Organization | | | | + + + + + | [facility] | [address] | [place] [address] | | | [facility] | | | | | LABORATORY [facility] | | | | + + + + + Lactic Acid, Arterial, Surgery (06/11/2018 1400) + + + + + | Component | Value | Ref Range | Performed At | + + + + + | Lactate, Arterial | 1.5Comment: Performed | 0.5 - 1.6 mmol/L | [facility] | | | by [place] [address], | | [facility] | | | [place] [address] | | [facility] | | |Performed by [facility] [address], [place] [address] | | LABORATORY | | | | | CERNER | + + + + + + + | Specimen | + + | Blood | + + + + + + + | Performing | Address | City/State/Zipcode | Phone Number | | Organization | | | | + + + + + | [facility] | [address] | [place] [address] | | | [facility] | | | | | LABORATORY [facility] | | | | + + + + + Blood Gas , Arterial, Surgery (06/11/2018 1400) + + + + + | Component | Value | Ref Range | Performed At | + + + + + | pH, Arterial | 7.34 (L)Comment: | 7.37 - 7.47 | [facility] | | | Results Delivered to | | [facility] | | | [facility] | | [facility] | | |Results Delivered to [place] | | LABORATORY | | | | | [facility] | + + + + + | pCO2, Arterial | 48 (H) | 32 - 43 mmHg | [facility] | | | | | [facility] | | | | | [facility] | | | | | LABORATORY | | | | | [facility] | + + + + + | pO2, Arterial | 206 (H) | 65 - 80 mmHg | [facility] | | | | | [facility] | | | | | [facility] | | | | | LABORATORY | | | | | [facility] | + + + + + | O2 Content, Arterial | 11.3 (L) | 15.0 - 23.0 % | [facility] | | | | | [facility] | | | | | [facility] | | | | | LABORATORY | | | | | [facility] | + + + + + | HGB O2 SAT | 97.5 | 92.0 - 99.9 % | [facility] | | | | | [facility] | | | | | [facility] | | | | | LABORATORY | | | | | [facility] | + + + + + | Hgb | 7.9 (L) | 11.3 - 15.5 g/dL | [facility] | | | | | [facility] | | | | | [facility] | | | | | LABORATORY | | | | | [facility] | + + + + + | HCO3, Arterial | 24.9 | 23.0 - 28.0 mmol/L | [facility] | | | | | [facility] | | | | | [facility] | | | | | LABORATORY | | | | | [facility] | + + + + + | Base Excess, | -0.1 | -2.5 - 2.5 | [facility] | | Arterial | | | [facility] | | | | | [facility] | | | | | LABORATORY | | | | | [facility] | + + + + + | Carboxyhemoglobin | 0.7 (L) | 1.0 - 3.0 % | [facility] | | | | | [facility] | | | | | [facility] | | | | | LABORATORY | | | | | [facility] | + + + + + | Methemoglobin, | 0.9 | 0.4 - 1.5 % | [facility] | | Venous | | | [facility] | | | | | [facility] | | | | | LABORATORY | | | | | [facility] | + + + + + | Calcium, Ionized | 3.56 (L) | 4.75 - 5.30 mg/dL | [facility] | | (mg/dL) | | | [facility] | | | | | [facility] | | | | | LABORATORY | | | | | [facility] | + + + + + | Calcium, pH | 3.44 (L) | 4.75 - 5.30 mg/dL | [facility] | | Normalized | | | [facility] | | | | | [facility]ENTER | | | | | LABORATORY | | | | | [facility] | + + + + + | K | 6.7 (H) | 3.5 - 5.0 mmol/L | [facility] | | | | | [facility] | | | | | [facility] | | | | | LABORATORY | | | | | [facility] | + + + + + | GLUCOSE | 144 (H)Comment: | 65 - 99 mg/dL | [facility] | | | Performed by [facility] [address] | | [facility] | | | [address] [place], [place] | | [facility]ICAL [facility]ENTER | | | [address] | | LABORATORY | | | | | CERN[facility] | + + + + + + + | Specimen | + + | Blood | + + + + + + + | Performing | Address | City/State/Zipcode | Phone Number | | Organization | | | | + + + + + | [facility] | [address] | [place] [address] | | | [facility] | | | | | LABORATORY [facility] | | | | + + + + + Lactic Acid, Arterial, Surgery (06/11/2018 5004) + + + + + | Component | Value | Ref Range | Performed At | + + + + + | Lactate, Arterial | 1.2Comment: Performed | 0.5 - 1.6 mmol/L | [facility] | | | by [facility] [address], | | [facility] | | | [place], [place] | | MEDICAL [facility]ENTER | | |Performed by [facility] [address], [place], [place] | | LABORATORY | | | | | CERNER | + + + + + + + | Specimen | + + | Blood | + + + + + + + | Performing | Address | City/State/Zipcode | Phone Number | | Organization | | | | + + + + + | [facility] | [address] | [place], [place] | | | [facility] | | | | | LABORATORY [facility] | | | | + + + + + Blood Gas , Arterial, Surgery (06/11/2018 1334) + + + + ----+ | Component | Value | Ref Range | Performed At | + + + + ----+ | pH, Arterial | 7.34 (L)Comment: | 7.37 - 7.47 | [facility] | | | Results Delivered to | | [facility] | | | [facility] | [facility] | | |Results Delivered to [facility] | | LABORATORY | | | | | [facility] | + + + + ----+ | pCO2, Arterial | 47 (H) | 32 - 43 mmHg | [facility] | | | | | [facility] | | | [facility] | | | | | LABORATORY | | | | | [facility] | + + + + ----+ | pO2, Arterial | 188 (H) | 65 - 80 mmHg | [facility] | | | | | [facility] | | | | [facility] | | | | | LABORATORY | | | | | [facility] | + + + + ----+ | O2 Content, Arterial | 10.8 (L) | 15.0 - 23.0 % | [facility] | | | | | [facility] | | | [facility] | | | | | LABORATORY | | | | | [facility] | + + + + ----+ | HGB O2 SAT | 97.5 | 92.0 - 99.9 % | [facility] | | | | | [facility] | | [facility] | | | | | LABORATORY | | | | | [facility] | + + + + ----+ | Hgb | 7.6 (L) | 11.3 - 15.5 g/dL | [facility] | | | | | [facility] | [facility] | | | | | LABORATORY | | | | | [facility] | + + + + ----+ | HCO3, Arterial | 25.0 | 23.0 - 28.0 mmol/L | [facility] | | | | | [facility] | | | [facility] | | | | | LABORATORY | | | | | [facility] | + + + + ----+ | Base Excess, | 0.0 | -2.5 - 2.5 | [facility] | | Arterial | | | [facility] | | | [facility] | | | | | LABORATORY | | | | | [facility] | + + + + ----+ | Carboxyhemoglobin | 0.7 (L) | 1.0 - 3.0 % | [facility] | | | | | [facility] | | [facility] | | | | | LAB[facility]ATORY | | | | | [facility] | + + + + ----+ | Methemoglobin, | 0.8 | 0.4 - 1.5 % | [facility] | | Venous | | | [facility] | | | | | [facility] | | | | | LABORATORY | | | | | [facility] | + + + + ----+ | Calcium, Ionized | 3.08 (L) | 4.75 - 5.30 mg/dL | [facility] | | (mg/dL) | | | [facility] | | | | | [facility] | | | | | LABORATORY | | | | | [facility] | + + + + ----+ | Calcium, pH | 2.99 (L) | 4.75 - 5.30 mg/dL | [facility] | | Normalized | | | [facility] | | | | | [facility] | | | | | LABORATORY | | | | | [facility] | + + + + ----+ | K | 7.0 (H) | 3.5 - 5.0 mmol/L | [facility] | | | | | [facility] | | | [facility] | | | | | LABORATORY | | | | | [facility] | + + + + ----+ | GLUCOSE | 189 (H)Comment: | 65 - 99 mg/dL | [facility] | | | Performed by [facility] [address] | | [facility] | | | [address] [place] | | [facility] | | | [id number] | | LABORATORY | | | | | [facility] | + + + + ----+ + + | Specimen | + + | Blood | + + + + + + + | Performing | Address | City/State/Zipcode | Phone Number | | Organization | | | | + + + + + | [facility] | [address] | [place] [address] | | | [facility] | | | | | LABORATORY [facility] | | | | + + + + + ECHO Transesophageal (CHIQUITA) (06/11/2018 1305) + -----+ + | Narrative | Performed At | + -----+ + | | [facility] | | Transesophageal Echocardiography Report (CHIQUITA) Demographics Patient | | | Name [facility] Room | | | Number Therese LACKEY | | | Patient Number [id number] Date of | | | Study 06/11/2018 Visit Number [id number] | | | Accession | | | [id number] Interpreting Sharad Richard, | | | MD Number | | | Physician Date of 1955 Referring | | | Physician ELEANOR MARTIN Age 62 | | | year(s) [employer] Sanjeev | | | Augustine, | | | | | | MD | | | Sharad Richard MD | | | Gender Female 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 Procedure DateDate: 06/11/2018Start: 08:50 AM | | | Height: 68 inchesWeight: 140 poundsBSA: 1.76 m^2BMI: 21.29 kg/m^2 | | | ConclusionsSummaryTEE probe placed by Dr. Bradshaw.Diagnostic exam | | | performed by Dr. Bradshaw (Pre-CPB), Dr. Richard (Post-CPB).Exam | | | interpreted by Dr. Richard.All pertinent intraoperative findings | | | discussed with Dr. Webster. A comprehensive intraoperative CHIQUITA was | | | performed for CABG using 2D, ColorFlow Doppler, Pulsed Wave Doppler, | | | and Continuous Wave Doppler plus 3Drendering without | | | postprocessing.AUC SCA 2b (CABG surgeries.) Pre-procedure Summary | | | Dx:1. Moderately reduced LV systolic function. Visually estimated LVEF | | | 35%.Normal LV size and shape. Normal wall thickness.2. Normal RV size | | | with normal function.3. No obvious atrial enlargement. KEZIA normal | | | size without SEC, masses, orthrombi. IAS intact, no PFO detected.4. | | | Mitral valve normal structure and function. Trace MR with central | | | jet.Moderate MAC.5. Trileaflet aortic valve with normal structure and | | | function. Nosignificant aortic stenosis. No AI.6. Tricuspid valve | | | normal structure and function. Trace TR.7. Pulmonic valve normal Trace | | | ND.8. Visible portions of ascending aorta and arch normal. 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 Pulmonary artery | | | [id number]. Normal pericardium. No pericardial fluid. No pleural fluid. | | | Post-procedure Summary Dx:1. S/P CABG x 3 (EDWARDS-LAD, SVG-OM, | | | SVG-PDA)2. LV function is improved to borderline with LVEF=50%, | | | previously severelyhypokinetic inferolateral segments are improved.3. | | | No change in right ventricular function compared to preop.4. No change | | | in valves compared to preop.5. No change in visible portions of aorta | | | after decannulation.6. LV and RV function unchanged after sternal | | | closure. No apparentpericardial fluid after sternal closure. No | | | pleural fluid visible aftersternal closure. Procedure:1. CABG x 3 | | | (EDWARDS-LAD, SVG-OM, SVG-PDA). Left Ventricle:Moderately depressed LV | | | fxn with visually estimated LVEF 35%. Normal LV sizeand shape. Normal | | | wall thickness. LV with global mild HK. Mid-basal regionof | | | Inferior/septal, Inferior and lateral castillo with severe [...] Peak A-Wave: | | | 66.8 cm/s | | | | | | Lateral e' Velocity: 4.42 | | | cm/s | | | Lateral E/e' Ratio:13.71 Aortic Valve Peak Velocity: 121 | | | cm/s Mean Gradient: 3 mmHg Peak | | | Gradient: 5.86 mmHg LVOT LVOT Diameter: 2 cm Structures Left Atrium | | | LA Major:0.237 Left Ventricle PW Diastolic: 0.78 cm EF Calculated: | | | 53.8% MiscellaneousAorta Ascending Aorta: 2.8 cm | | |normal thickness with normal opening. [...] cm | | | | | + -----+ + + + | Procedure Note | + + | Presley Dumont Results In - 06/11/2018 1654 [facility] Transesophageal Echocardiography Report | | (CHIQUITA) Demographics Patient Name [facility] Room Number 270 | | ZIYAD Patient Number [id number] Date of Study 06/11/2018 Visit | | Number [id number] Interpreting Sahrad | | MD Jose Manuel Number Physician Date of 1955 | | Referring Physician ELEANOR MARTIN Age 62 year(s) | | [employer] Sanjeev Bradshaw, | | MD Sharad Richard [...] function. Trace TR.7. Pulmonic valve normal Trace ND.8. Visible portions | | of ascending aorta and arch normal. 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 Pulmonary artery . Normal pericardium. No pericardial fluid. No pleural [...] + + Lactic Acid, Arterial, Surgery (06/11/2018 1300) + + + + + | Component | Value | Ref Range | Performed At | + + + + + | Lactate, Arterial | 1.1Comment: Performed | 0.5 - 1.6 mmol/L | [facility] | | | by [facility] [address] [facility], | | [facility] | | | [place] [address] | | [facility] | | |Performed by [facility] [address] [place] [address], [place] [address] | | LABORATORY | | | | | [facility] | + + + + + + + | Specimen | + + | Blood | + + + + + + + | Performing | Address | City/State/Zipcode | Phone Number | | Organization | | | | + + + + + | [facility] | [address] | [place] [address] | | | [facility] | | | | | LABORATORY [facility] | | | | + + + + + Chemistry Profile, A and V, Surgery (06/11/2018 1300) + + + + + | Component | Value | Ref Range | Performed At | + + + + + | pH, Arterial | 7.29 (L)Comment: | 7.37 - 7.47 | [facility] | | | Results Delivered to | | [facility] | | | [facility] | | [facility] | | |Results Delivered to [facility] | | LABORATORY | | | | | [facility] | + + + + + | pCO2, Arterial | 52 (H) | 32 - 43 mmHg | [facility] | | | | | [facility] | | | | | [facility] | | | | | LAB[facility]ATORY | | | | | [facility] | + + + + + | pO2, Arterial | 309 (H) | 65 - 80 mmHg | [facility] | | | | | [facility] | | | | | [facility] | | | | | LAB[facility]ATORY | | | | | [facility] | + + + + + | O2 Content, Arterial | 10.4 (L) | 15.0 - 23.0 % | [facility] | | | | | [facility] | | | | | [facility] | | | | | LABORATORY | | | | | [facility] | + + + + + | HGB O2 SAT | 97.9 | 92.0 - 99.9 % | [facility] | | | | | [facility] | | | | | [facility] | | | | | LABORATORY | | | | | [facility] | + + + + + | HCO3, Arterial | 24.4 | 23.0 - 28.0 mmol/L | [facility] | | | | | [facility] | | | | | [facility] | | | | | LABORATORY | | | | | [facility] | + + + + + | Base Excess, | -1.2 | -2.5 - 2.5 | [facility] | | Arterial | | | [facility] | | | | | [facility] | | | | | LABORATORY | | | | | [facility] | + + + + + | Carboxyhemoglobin | 0.5 (L) | 1.0 - 3.0 % | [facility] | | | | | [facility] | | | | | [facility] | | | | | LABORATORY | | | | | [facility] | + + + + + | Methemoglobin, | 0.9 | 0.4 - 1.5 % | [facility] | | Venous | | | [facility] | | | | | [facility]ENTER | | | | | LABORATORY | | | | | [facility] | + + + + + | pH, Venous | 7.25 (L) | 7.31 - 7.41 | [facility] | | | | | [facility] | | | | | [facility] | | | | | LAB[facility]ATORY | | | | | [facility] | + + + + + | pCO2, Venous | 59 (H) | 41 - 51 mmHg | [facility] | | | | | [facility] | | | | | [facility] | | | | | LAB[facility]ATORY | | | | | [facility] | + + + + + | pO2, Venous | 53 (H) | 37 - 43 mmHg | [facility] | | | | | [facility] | | | | | [facility] | | | | | LAB[facility]ATORY | | | | | [facility] | + + + + + | Hgb | 7.0 (L) | 11.3 - 15.5 g/dL | [facility] | | | | | [facility] | | | | | [facility] | | | | | LAB[facility]ATORY | | | | | [facility] | + + + + + | O2SAT COOX VENOUS | 78.6 (H) | 70.0 - 76.0 % | [facility] | | | | | [facility] | | | | | [facility] | | | | | LABORATORY | | | | | [facility] | + + + + + | GLUCOSE | 172 (H) | 65 - 99 mg/dL | [facility] | | | | | [facility] | | | | | [facility] | | | | | LAB[facility]ATORY | | | | | [facility] | + + + + + | K | 7.8 (H) | 3.5 - 5.0 mmol/L | [facility] | | | | | [facility] | | | | | [facility] | | | | | LABORATORY | | | | | [facility] | + + + + + | Calcium, Ionized | 3.93 (L) | 4.75 - 5.30 mg/dL | [facility] | | (mg/dL) | | | [facility] | | | | | [facility] | | | | | LABORATORY | | | | | [facility] | + + + + + | Calcium, pH | 3.71 (L)Comment: | 4.75 - 5.30 mg/dL | [facility] | | Normalized | Performed by [facility] [address] | | [facility] | | | [address] [place] | | MEDICAL [facility]ENTER | | | [address] | | LABORATORY | | | | | [facility] | + + + + + + + | Specimen | + + | Blood | + + + + + + + | Performing | Address | City/State/Zipcode | Phone Number | | Organization | | | | + + + + + | [facility] | [address] | [place] [address] | | | [facility] | | | | | [facility] [place] | | | | + + + + + Lactic Acid, Arterial, Surgery (06/11/2018 1035) + + + + + | Component | Value | Ref Range | Performed At | + + + + + | Lactate, Arterial | 0.9Comment: Performed | 0.5 - 1.6 mmol/L | [facility] | | | by [place] [address], | | [facility] | | | [place] [address] | | [facility] | | |Performed by [place] [address] [facility] [place] [address] | | LABORATORY | | | | | [facility] | + + + + + + + | Specimen | + + | Blood | + + + + + + + | Performing | Address | City/State/Zipcode | Phone Number | | Organization | | | | + + + + + | [facility] | [address] | [place] [address] | | | [facility] | | | | | [facility] [place] | | | | + + + + + Blood Gas , Arterial, Surgery (06/11/2018 1035) + + + + + | Component | Value | Ref Range | Performed At | + + + + + | pH, Arterial | 7.36 (L)Comment: | 7.37 - 7.47 | [facility] | | | Results Delivered to | | [facility] | | | [facility] | | [facility]ENTER | | |Results Delivered to [facility] | | LABORATORY | | | | | [facility] | + + + + + | pCO2, Arterial | 44 (H) | 32 - 43 mmHg | [facility] | | | | | [facility] | | | | | [facility] | | | | | LAB[facility]ATORY | | | | | [facility] | + + + + + | pO2, Arterial | 456 (H) | 65 - 80 mmHg | [facility] | | | | | [facility] | | | | | [facility] | | | | | LABORATORY | | | | | [facility] | + + + + + | O2 Content, Arterial | 18.6 | 15.0 - 23.0 % | [facility] | | | | | [facility] | | | | | [facility] | | | | | LABORATORY | | | | | [facility] | + + + + + | HGB O2 SAT | 98.5 | 92.0 - 99.9 % | [facility] | | | | | [facility] | | | | | [facility] | | | | | LABORATORY | | | | | [facility] | + + + + + | Hgb | 12.6 | 11.3 - 15.5 g/dL | [facility] | | | | | [facility] | | | | | [facility] | | | | | LABORATORY | | | | | [facility] | + + + + + | HCO3, Arterial | 24.3 | 23.0 - 28.0 mmol/L | [facility] | | | | | [facility] | | | | | [facility] | | | | | LABORATORY | | | | | [facility] | + + + + + | Base Excess, | -0.4 | -2.5 - 2.5 | [facility] | | Arterial | | | [facility] | | | | | [facility] | | | | | LABORATORY | | | | | [facility] | + + + + + | Carboxyhemoglobin | 0.3 (L) | 1.0 - 3.0 % | [facility] | | | | | [facility] | | | | | [facility] | | | | | LABORATORY | | | | | [facility] | + + + + + | Methemoglobin, | 0.7 | 0.4 - 1.5 % | [facility] | | Venous | | | [facility] | | | | | [facility] | | | | | LABORATORY | | | | | [facility] | + + + + + | Calcium, Ionized | 4.69 (L) | 4.75 - 5.30 mg/dL | [facility] | | (mg/dL) | | | [facility] | | | | | [facility] | | | | | LAB[facility]ATORY | | | | | [facility] | + + + + + | Calcium, pH | 4.60 (L) | 4.75 - 5.30 mg/dL | [facility] | | Normalized | | | [facility] | | | | | [facility] | | | | | LABORATORY | | | | | [facility] | + + + + + | K | 4.7 | 3.5 - 5.0 mmol/L | [facility] | | | | | [facility] | | | | | [facility] | | | | | LAB[facility]ATORY | | | | | [facility] | + + + + + | GLUCOSE | 108 (H) | 65 - 99 mg/dL | [facility] | | | | | [facility] | | | | | [facility] | | | | | LAB[facility]ATORY | | | | | [facility] | + + + + + | NA | 134 (L)Comment: | 135 - 145 mmol/L | [facility] | | | Performed by [facility] [address] | | [facility] | | | [address] [place] | | [facility] | | | [address] | | LABORATORY | | | | | [place] | + + + + + + + | Specimen | + + | Blood | + + + + + + + | Performing | Address | City/State/Zipcode | Phone Number | | Organization | | | | + + + + + | [facility] | [address] | [place] [address] | | | [facility] | | | | | [facility]AT[facility] [place] | | | | + + + + + Type and Screen (06/11/2018512) + + + + + | Component | Value | Ref Range | Performed At | + + + + + | Antibody Screen | Positive | | [facility] | | | | | [place] | | | | | [facility] | | | | | [facility] | + + + + + | ABO | O | | [facility] | | | | | [place] | | | | | [facility] | | | | [facility] | + + + + + | Rh Type | Negative | | [facility] | | | | | [place] | | | | | [facility] | | | | [facility] | + + + + + + + | Specimen | + + | Blood | + + + + + | Narrative | Performed At | + + + | Specimen Expiration Date: [id number] | [facility] | | | [place] | | | [facility] | | [facility] | + + + + + + + + | Performing | Address | City/State/Zipcode | Phone Number | | Organization | | | | + + + + + | [facility] | [address] | [place] [address] | [phone] | | [place] | | | | | [facility] | | | | | [facility] | | | | + + + + + POC Glucose (06/11/2018311) + + + + + | Component | Value | Ref Range | Performed At | + + + + + | Glucose, POC | 105 (H)Comment: | 65 - 99 mg/dL | [facility] | | | Performed by [facility] [address] | | [facility] | | | [place] | | [facility] | | | [address] | | LABORATORY | | | | | [place] | + + + + + + + | Specimen | + + | Blood | + + + + + + + | Performing | Address | City/State/Zipcode | Phone Number | | Organization | | | | + + + + + | [facility] | [address] | [place] [address] | | | [facility] | | | | | LABORATORY [place] | | | | + + + + + Protime INR (06/11/2018311) + + + + + | Component | Value | Ref Range | Performed At | + + + + + | Protime | 12.9 | 12.0 - 14.2 sec | [facility] | | | | | [facility] | | | | | [facility] | | | | | LABORATORY | | | | | [place] | + + + + + | INR | 1.0Comment: Usual oral | 0.9 - 1.1 | [facility] | | | anticoagulant range: 2.0 | | [facility] | | | to 3.0 High level | | [facility] | | | oral anticoagulant | | LABORATORY | | | range: 2.5 to | | [facility] | | | 3.5Performed by [facility] [address] | | | [address], [place] | | | | | [address] | | | + + + + + + + | Specimen | + + | Blood | + + + + + + + | Performing | Address | City/State/Zipcode | Phone Number | | Organization | | | | + + + + + | [facility] | [address] | [place] [address] | | | [facility] | | | | | LABORAT[facility] | | | | + + + + + CBC no Differential (06/11/2018311) + + + + + | Component | Value | Ref Range | Performed At | + + + + + | WBC | 7.3 | 3.8 - 11.0 K/uL | [facility] | | | | | [facility] | | | | | [facility] | | | | | LABORATORY | | | | | [facility] | + + + + + | RBC | 4.30 | 3.70 - 5.10 M/uL | [facility] | | | | | [facility] | | | | | [facility] | | | | | LABORATORY | | | | | [place] | + + + + + | Hgb | 12.6 | 11.3 - 15.5 g/dL | [facility] | | | | | [facility] | | | | | [facility] | | | | | LABORATORY | | | | | [place] | + + + + + | Hct | 37.4 | 34.0 - 46.0 % | [facility] | | | | | [facility] | | | | | [facility] | | | | | LABORATORY | | | | | [facility] | + + + + + | MCV | 87.0 | 80.0 - 100.0 fL | [facility] | | | | | [facility] | | | | | [facility] | | | | | LABORATORY | | | | | [facility] | + + + + + | MCH | 29.4 | 27.0 - 34.0 pg | [facility] | | | | | [facility] | | | | | [facility] | | | | | LABORATORY | | | | | [place] | + + + + + | MCHC | 33.8 | 32.0 - 35.5 g/dL | [facility] | | | | | [facility] | | | | | [facility] | | | | | LABORATORY | | | | | [facility] | + + + + + | RDW-CV | 15.1 | 11.0 - 15.5 % | [facility] | | | | | [facility] | | | | | [facility] | | | | | LABORATORY | | | | | [facility] | + + + + + | Platelet Count | 349 | 150 - 400 K/uL | [facility] | | | | | [facility] | | | | | [facility] | | | | | LABORATORY | | | | | [facility] | + + + + + | MPV | 7.0 (L)Comment: | 7.5 - 11.2 fL | [facility] | | | Performed by [facility] [address] | | [facility] | | | [address] [place] [place] | | [facility] | | | [address] | | LABORATORY | | | | | [facility] | + + + + + + + | Specimen | + + | Blood | + + + + + + + | Performing | Address | City/State/Zipcode | Phone Number | | Organization | | | | + + + + + | [facility] | [address] | [place] [address] | | | [facility] | | | | | LAB[facility]AT[facility] [place] | | | | + + + + + Basic Metabolic Panel (06/11/2018311) + + + + + | Component | Value | Ref Range | Performed At | + + + + + | NA | 139 | 135 - 145 mmol/L | [facility] | | | | | [facility] | | | | | [facility] | | | | | LABORATORY | | | | | [place] | + + + + + | K | 4.3 | 3.5 - 5.0 mmol/L | [facility] | | | | | [facility] | | | | | [facility] | | | | | LABORATORY | | | | | [facility] | + + + + + | CL | 106 | 99 - 109 mmol/L | [facility] | | | | | [facility] | | | | | [facility] | | | | | LABORATORY | | | | | [facility] | + + + + + | CO2 | 24 | 21 - 28 mmol/L | [facility] | | | | | [facility] | | | | | [facility] | | | | | LAB[facility]ATORY | | | | | [facility] | + + + + + | ANION GAP | 9 | 5 - 16 mmol/L | [facility] | | | | | [facility] | | | | | [facility] | | | | | LABORATORY | | | | | [place] | + + + + + | CALCIUM | 9.0 | 8.5 - 10.2 mg/dL | [facility] | | | | | [facility] | | | | | [facility] | | | | | LABORATORY | | | | | [place] | + + + + + | BUN | 27 (H) | 8 - 25 mg/dL | [facility] | | | | | [facility] | | | | | [facility] | | | | | LABORATORY | | | | | [place] | + + + + + | Creatinine, | 0.88 | 0.50 - 1.00 mg/dL | [facility] | | Serum/Plasma | | | [facility] | | | | | [facility] | | | | | LABORATORY | | | | | [facility] | + + + + + | GLUCOSE | 103 (H) | 65 - 99 mg/dL | [facility] | | | | | [facility] | | | | | [facility] | | | | | LAB[facility]ATORY | | | | | [facility] | + + + + + | Estimated GFR | 70 (L)Comment: eGFR<60 | >=90 mL/min/1.73m2 | [facility] | | | consistent with impaired | | [facility] | | | kidney | | [facility]ENTER | | | function.Performed by | | LABORATORY | | | [facility] [address], | | [facility] | | | [place] [address] | | | + + + + + + + | Specimen | + + | Blood | + + + + + + + | Performing | Address | City/State/Zipcode | Phone Number | | Organization | | | | + + + + + | [facility] | [address] | [place] [address] | | | [facility] | | | | | LAB[facility]AT[facility] | | | | + + + + + PTT (06/11/2018311) + + + + + | Component | Value | Ref Range | Performed At | + + + + + | PTT | 78 (H)Comment: Deep | 26 - 36 sec | [facility] | | | venous thrombosis or | | [facility] | | | pulmonary embolism | | [facility] | | | therapeutic heparin | | LABORATORY | | | levels of 0.3 to 0.7 | | [facility] | | | Units/mL anti FactorXa | | | | | levels usually | | | | | correspond to an aPTT of | | | | | 65 to 99 seconds. Acute | | | | | cardiac syndrome | | | | | therapeutic range based | | | | | on heparin levels of 0.2 | | | | | to 0.5 usually | | | | | correspond to an aPTT of | | | | | 57 to 76 seconds. | | | | | Pediatric guidelines | | | | | suggested heparin levels | | | | | of 0.35 to 0.7 usually | | | | | correspond to an aPTT of | | | | | 69 to 99 | | | | | seconds.Performed by [facility] | | | | | [address], | | | | | [place] [address] | | | + + + + + + + | Specimen | + + | Blood | + + + + + + + | Performing | Address | City/State/Zipcode | Phone Number | | Organization | | | | + + + + + | [facility] | [address] | [place] [address] | | | [facility] | | | | | LABORATORY [facility] | | | | + + + + + MRSA NAAT (06/11/2018 0010) + + + +--------- --------+ | Component | Value | Ref Range | Mikaylae d At | + + + +--------- --------+ | MRSA DNA | Negative | Negative | [facility] | | | | | [facility] | | | | | [facility] | | | | | [facility] | | | | | [facility] | + + + +--------- --------+ | Specimen Source | NasalComment: Performed | | [facility] | | | by [facility] [address], | | [facility] [place] | | | [place], [place] | | [facility] | | |Performed by [facility] [address], [place], [place] | | [facility] | | | | | [place] | + + + +--------- --------+ + + | Specimen | + + | Tissue - Nares | + + + + + + + | Performing | Address | City/State/Zipcode | Phone Number | | Organization | | | | + + + + + | [facility] | [address] | [place], [place] | | | [facility] | | | | | [place] | | | | + + + + + Urinalysis with Microscopic with Culture if Indicated (06/11/2018) + + + + + | Component | Value | Ref Range | Performed At | + + + + + | CULTURE SENT | No | | [facility] | | | | | [facility] | | | | | [facility] | | | | | LAB[facility]ATORY | | | | | [facility] | + + + + + | COLOR | Straw | | [facility] | | | | | [facility] | | | | | [facility] | | | | | LABORATORY | | | | | [facility] | + + + + + | CLARITY | Clear | | [facility] | | | | | [facility] | | | | | [facility] | | | | | LAB[facility]ATORY | | | | | [facility] | + + + + + | GLUCOSE UA | Negative | Negative | [facility] | | | | | [facility] | | | | | [facility] | | | | | LAB[facility]ATORY | | | | | [facility] | + + + + + | KETONES UA | Negative | Negative | [facility] | | | | | [facility] | | | | | [facility] | | | | | LAB[facility]ATORY | | | | | [facility] | + + + + + | BILIRUBIN UA | Negative | Negative | [facility] | | | | | [facility] | | | | | [facility] | | | | | LAB[facility]ATORY | | | | | [facility] | + + + + + | UROBILINOGEN UA | <2.0 | <2.0 mg/dL | [facility] | | | | | [facility] | | | | | [facility] | | | | | LABORATORY | | | | | [facility] | + + + + + | Specific [place] | 1.010 | 1.001 - 1.030 | [facility] | | | | | [facility] | | | | | [facility] | | | | | LAB[facility]ATORY | | | | | [facility] | + + + + + | PH UA | 6.0 | 5.0 - 7.5 | [facility] | | | | | [facility] | [facility] | | | | | [facility]ATORY | | | | | [facility] | + + + + + | PROTEIN UA | Negative | Negative | [facility] | | | | | [facility] | | | | | [facility] | + + + + + | NITRITE UA | Negative | Negative | [facility] | | | | | [facility] | | | | | [facility] | + + + + + | BLOOD UA | Small (A) | Negative | [facility] | [facility] | | | | | [facility] | | | | | [facility] | + + + + + | LEUKOCYTES ESTERASE | Negative | Negative | [facility] | | [facility] | | [facility] | [facility] | | | [facility] | | | | | [facility] | + + + + + | SQUAMOUS EPITHELIAL | Few | | [facility] | [facility] | | | [facility] | | | | | [facility] | | | | | [facility] | + + + + + | WBC UA | <1 | 0 - 5 /hpf | [facility] | | | | | [facility] | | | | | [facility] | + + + + + | RBC UA | 1 | 0 - 5 | [facility] | | | | | [facility] | | | | | [facility] | + + + + + | BACTERIA UA | None Seen | | [facility] | | | | | [facility] | | | | | [facility] | + + + + + | AMORPHOUS CRYSTALS | None Present | | [facility] | | | | | [facility]ORY | | | | | [facility] | + + + + + | MUCUS UA | Not Present | | [facility] | | | | | LAB[facility]ATORY | | | | | [facility] | + + + + + | URINE SOURCE | Clean catchComment: | | [facility] | | | Performed by [facility] [address] | | [facility] | | | [address] | | [facility] | | | [id number] | | LABORATORY | | | | | [facility] | + + + + + + + | Specimen | + + | Urine - Urine, Clean | | Catch | + + + + + + + | Performing | Address | City/State/Zipcode | Phone Number | | Organization | | | | + + + + + | [facility] | [address] | [place] [address] | | | [facility] | | | | | LABORATORY [facility] | | | | + + + + + POC Glucose (06/10/20182253) + + + + + | Component | Value | Ref Range | Performed At | + + + + + | Glucose, POC | 129 (H)Comment: | 65 - 99 mg/dL | [facility] | | | Performed by [facility] [address] | | [facility] | | | [address] [place] | | [facility] | | | [address] | | LABORATORY | | | | | CERNER | + + + + + + + | Specimen | + + | Blood | + + + + + + + | Performing | Address | City/State/Zipcode | Phone Number | | Organization | | | | + + + + + | [facility] | [address] | [place] [address] | | | [facility] | | | | | [place] | | | | + + + + + PTT (06/10/20182002) + + + + + | Component | Value | Ref Range | Performed At | + + + + + | PTT | 38 (H)Comment: Deep | 26 - 36 sec | [facility] | | | venous thrombosis or | | [facility] | | | pulmonary embolism | | [facility] | | | therapeutic heparin | | LABORATORY | | | levels of 0.3 to 0.7 | | [facility] | | | Units/mL anti FactorXa | | | | | levels usually | | | | | correspond to an aPTT of | | | | | 65 to 99 seconds. Acute | | | | | cardiac syndrome | | | | | therapeutic range based | | | | | on heparin levels of 0.2 | | | | | to 0.5 usually | | | | | correspond to an aPTT of | | | | | 57 to 76 seconds. | | | | | Pediatric guidelines | | | | | suggested heparin levels | | | | | of 0.35 to 0.7 usually | | | | | correspond to an aPTT of | | | | | 69 to 99 | | | | | seconds.Performed by [facility] | | | | | [address], | | | | | [place] [address] | | | + + + + + + + | Specimen | + + | Blood | + + + + + + + | Performing | Address | City/State/Zipcode | Phone Number | | Organization | | | | + + + + + | [facility] | [address] | [place] [address] | | | [facility] | | | | | LABORATORY [facility]ER | | | | + + + + + Basic Metabolic Panel (06/10/2018 1722) + + + + + | Component | Value | Ref Range | Performed At | + + + + + | NA | 139 | 135 - 145 mmol/L | [facility] | | | | | [facility] | | | | [facility] | | | | | LABORATORY | | | | | C[facility]ER | + + + + + | K | 4.5 | 3.5 - 5.0 mmol/L | [facility] | | | | | [facility] | | | | [facility] | | | | | LABORATORY | | | | | C[facility] | + + + + + | CL | 106 | 99 - 109 mmol/L | [facility] | | | | | [facility] | | [facility] | | | | | LAB[facility]ATORY | | | | | C[facility]ER | + + + + + | CO2 | 25 | 21 - 28 mmol/L | [facility] | | | | | [facility] | | | [facility] | | | | | LAB[facility]ATORY | | | | | C[facility]ER | + + + + + | ANION GAP | 8 | 5 - 16 mmol/L | [facility] | | | | | [facility] | | | | [facility] | | | | | LABORATORY | | | | | C[facility]ER | + + + + + | CALCIUM | 8.6 | 8.5 - 10.2 mg/dL | [facility] | | | | | [facility] | | | | [facility] | | | | | LABORATORY | | | | | CERNER | + + + + + | BUN | 25 | 8 - 25 mg/dL | [facility] | | | | | [facility] | | | | [facility] | | | | | LABORATORY | | | | | CERNER | + + + + + | Creatinine, | 0.91 | 0.50 - 1.00 mg/dL | [facility] | | Serum/Plasma | | | [facility] | | | | | [facility] | | | | | LABORATORY | | | | | CERNER | + + + + + | GLUCOSE | 78 | 65 - 99 mg/dL | [facility] | | | | | [facility] | | | | | [facility] | | | | | LABORATORY | | | | | CERNER | + + + + + | Estimated GFR | 67 (L)Comment: eGFR<60 | >=90 mL/min/1.73m2 | [facility] | | | consistent with impaired | | [facility] | | | kidney | | [facility] | | | function.Performed by | | LABORATORY | | | [facility] [address], | | [place] | | | [place] [address] | | | + + + + + + + | Specimen | + + | Blood | + + + + + + + | Performing | Address | City/State/Zipcode | Phone Number | | Organization | | | | + + + + + | [facility] | [address] | [place] [address] | | | [facility] | | | | | LABORATORY [place] | | | | + + + + + Protime INR (06/10/2018 1722) + + + + + | Component | Value | Ref Range | Performed At | + + + + + | Protime | 12.5 | 12.0 - 14.2 sec | [facility] | | | | | [facility] | | | | | [facility] | | | | | LABORATORY | | | | | C[facility]ER | + + + + + | INR | 0.9Comment: Usual oral | 0.9 - 1.1 | [facility] | | | anticoagulant range: 2.0 | | [facility] | | | to 3.0 High level | | [facility] | | | oral anticoagulant | | LABORATORY | | | range: 2.5 to | | [facility] | | | 3.5Performed by [facility] [address] | | | | | [address] [place] | | | | | [address] | | | + + + + + + + | Specimen | + + | Blood | + + + + + + + | Performing | Address | City/State/Zipcode | Phone Number | | Organization | | | | + + + + + | [facility] | [address] | [place] [address] | | | [facility] | | | | | LABORATORY [place] | | | | + + + + + POC Glucose (06/10/2018 1623) + + + + + | Component | Value | Ref Range | Performed At | + + + + + | Glucose, POC | 113 (H)Comment: | 65 - 99 mg/dL | [facility] | | | Performed by [facility] [address] | | [facility] | | | [place] | | [facility] | | | [address] | | LABORATORY | | | | | CERNER | + + + + + + + | Specimen | + + | Blood | + + + + + + + | Performing | Address | City/State/Zipcode | Phone Number | | Organization | | | | + + + + + | [facility] | [address] | [place] [address] | | | [facility] | | | | | LABORATORY [facility]ER | | | | + + + + + Hepatitis Panel, Acute (06/10/2018 1409) + + + + + | Component | Value | Ref Range | Performed At | + + + + + | HEP A IGM | Negative | Negative | [facility] | | | | | [facility] | | | | | [facility] | | | | | LABORATORY | | | | | CERNER | + + + + + | Hepatitis B Surface | Negative | Negative | [facility] | | Ag | | | [facility] | | | | | [facility] | | | | | LABORATORY | | | | | CERNER | + + + + + | HEP B CORE IgM | Negative | Negative | [facility] | | | | | [facility] | | | | | [facility] | | | | | LABORATORY | | | | | C[facility]ER | + + + + + | Hepatitis C Ab | >11.0 (H)Comment: | 0.0 - 0.9 | [facility] | | | | | [place] | | | | | [facility] | | | [place] | | LABORATORY | | | tive: < | | CERNER | | | 0.8 | | | | | | | | | | | | | | | Indeterminate: 0.8 - | | | | | 0.9 | | | | | | | | | | P | | | | | ositive: > 0.9 | | | | | The CDC recommends that | | | | | a positive HCV antibody | | | | | result be followed up | | | | | with a HCV Nucleic Acid | | | | | Amplification test | | | | | ([id number]).Performed At: | | | | | [facility] [id number] | | | | | [facility] [address] | | | | | [place], [place] | | | | | [phone] | | | | | L Ph:[phone] | | | + + + + + + + | Specimen | + + | Blood | + + + + + + + | Performing | Address | City/State/Zipcode | Phone Number | | Organization | | | | + + + + + | [facility] | [address] | [place] [address] | | | [facility] | | | | | LABORATORY CERNER | | | | + + + + + PTT (06/10/2018 1409) + + + + + | Component | Value | Ref Range | Performed At | + + + + + | PTT | 30Comment: Deep venous | 26 - 36 sec | [facility] | | | thrombosis or pulmonary | | [facility] | | | embolism therapeutic | | [facility] | | | heparin levels of 0.3 to | | LABORATORY | | | 0.7 Units/mL anti | | [facility] | | | FactorXa levels usually | | | | | correspond to an aPTT of | | | | | 65 to 99 seconds. Acute | | | | | cardiac syndrome | | | | | therapeutic range based | | | | | on heparin levels of 0.2 | | | | | to 0.5 usually | | | | | correspond to an aPTT of | | | | | 57 to 76 seconds. | | | | | Pediatric guidelines | | | | | suggested heparin levels | | | | | of 0.35 to 0.7 usually | | | | | correspond to an aPTT of | | | | | 69 to 99 | | | | | seconds.Performed by [facility] | | | | | [address], | | | | | [place] [address] | | | + + + + + + + | Specimen | + + | Blood | + + + + + + + | Performing | Address | City/State/Zipcode | Phone Number | | Organization | | | | + + + + + | [facility] | [address] | [place] [address] | | | [facility] | | | | | LABORATORY [facility] | | | | + + + + + ECG 12 lead (06/10/2018 1210) + + + | Narrative | Performed At | + + + | HEART RATE:71 | [facility] | | bpmRR Interval:845 msAtrial Rate:71 msP-R Interval:148 msP | [facility] | | Duration:152 msP Horizontal [place]:32 degP Front [place]:62 degQ Onset:512 | | | msQRSD Interval:110 msQT Interval:416 msQTcB:453 msQTcF:440 msQRS | | | Horizontal [place]:199 degQRS Columbia:-83 degI-40 Horizontal [place]:77 degI-40 | | | Front [place]:-74 degT-40 Horizontal [place]:242 degT-40 Front [place]:216 | | | degT Horizontal [place]:84 degT Wave [place]:69 degS-T Horizontal [place]:97 | | | degS-T Front [place]:107 degSeverity:- ABNORMAL ECG -INTERP:SINUS | | | RHYTHMINTERP:NONSPECIFIC IVCD WITH LADINTERP:INFERIOR INFARCT, | | | OLDElectronically signed by: ELIZABETH CAMPBELL 06-12-2018 11:24:19 | | |QTcB:453 ms | | |QTcF:440 ms | | |QRS Horizontal [place]:199 deg | | |QRS Columbia:-83 deg | | |I-40 Horizontal [place]:77 deg | | |I-40 Front [place]:-74 deg | | |T-40 Horizontal [place]:242 deg | | |T-40 Front [place]:216 deg | | |T Horizontal [place]:84 deg | | |T Wave [place]:69 deg | | |S-T Horizontal [place]:97 deg | | |S-T Front [place]:107 deg | | |Severity:- ABNORMAL ECG - [...] + + | [facility] | [address] | [place] [address] | [phone] | + + + + + Pulmonary function test full PFT (06/10/2018 1156) + + + | Narrative | Performed [...] | | + + + PTT (06/10/2018 0655) + + + + + | Component | Value | Ref Range | Performed At | + + + + + | PTT | 70 (H)Comment: Deep | 26 - 36 sec | [facility] | | | venous thrombosis or | | [facility] | | | pulmonary embolism | | [facility] | | | therapeutic heparin | | LABORATORY | | | levels of 0.3 to 0.7 | | [facility] | | | Units/mL anti FactorXa | | | | | levels usually | | | | | correspond to an aPTT of | | | | | 65 to 99 seconds. Acute | | | | | cardiac syndrome | | | | | therapeutic range based | | | | | on heparin levels of 0.2 | | | | | to 0.5 usually | | | | | correspond to an aPTT of | | | | | 57 to 76 seconds. | | | | | Pediatric guidelines | | | | | suggested heparin levels | | | | | of 0.35 to 0.7 usually | | | | | correspond to an aPTT of | | | | | 69 to 99 | | | | | seconds.Performed by [facility] | | | | | [address], | | | | | [place] [address] | | | + + + + + + + | Specimen | + + | Blood | + + + + + + + | Performing | Address | City/State/Zipcode | Phone Number | | Organization | | | | + + + + + | [facility] | [address] | [place] [address] | | | [facility] | | | | | LABORATORY C[facility] | | | | + + + + + Hepatitis Panel, Chronic (06/10/2018 0655) + + + + + | Component | Value | Ref Range | Performed At | + + + + + | Hepatitis B Surface | Negative | Negative | [facility] | | Ag | | | [facility] | | | | | [facility] | | | | | LABORATORY | | | | | CERNER | + + + + + | Hepatitis B Core Ab, | Positive (A) | Negative | [facility] | | Total | | | [facility] | | | | | [facility] | | | | | LABORATORY | | | | | CERNER | + + + + + | Hepatitis C Ab | >11.0 (H)Comment: | 0.0 - 0.9 | [facility] | | | | | [facility] | | | | | [facility] | | | [place] | | LABORATORY | | | tive: < | | CERNER | | | 0.8 | | | | | | | | | | | | | | | Indeterminate: 0.8 - | | | | | 0.9 | | | | | | | | | | P | | | | | ositive: > 0.9 | | | | | The CDC recommends that | | | | | a positive HCV antibody | | | | | result be followed up | | | | | with a HCV Nucleic Acid | | | | | Amplification test | | | | | ([id number]).Performed At: | | | | | [facility] [id number] | | | | | [address] | | | | | [place], [place] | | | | | [phone] | | | | | L Ph:[phone] | | | + + + + + | HEP A TOTAL AB | Positive (A) | Negative | [facility] | | | | | [facility] | | | | | [facility] | | | | | LABORATORY | | | | | C[facility]ER | + + + + + | Hepatitis B Surface | ReactiveComment: | | [facility] | | Antibody Qual | | | [facility] | | | Non Reactive: | | [facility] | | | Inconsistent with | | LABORATORY | | | immunity, | | [facility]ER | | | | | | | | less | | | | | than 10 | | | | | mIU/mL | | | | | Reactive: | | | | | Consistent with | | | | | immunity, | | | | | | | | | | greater | | | | | than 9.9 mIU/mL | | | + + + + + + + | Specimen | + + | Blood | + + + + + + + | Performing | Address | City/State/Zipcode | Phone Number | | Organization | | | | + + + + + | [facility] | [address] | [place] [address] | | | [facility] | | | | | LABORATORY [facility] | | | | + + + + + Hemoglobin A1C (06/10/2018 0655) + + + + + | Component | Value | Ref Range | Performed At | + + + + + | Hemoglobin A1c | 5.5Comment: The ADA | 4.3 - 6.1 % | [facility] | | | recommends A1C values of | | [facility] | | | less than 7% as the | [facility]ICAL [facility]ENTER | | | goal for diabetic | | LABORATORY | | | therapy. | | C[facility]ER | + + + + + | Estimated Average | 111Comment: The ADA | 65 - 154 mg/dL | [facility] | | Glucose | considers an Estimated | | [facility] | | | Average Glucose (eAG) | | [facility] | | | result of LT 154 mg/dL | | LABORATORY | | | to be the goal of | | C[facility] | | | diabetic therapy. | | | | | Estimated Average | | | | | Glucose is calculated | | | | | from hemoglobin A1c by | | | | | use of the ADA | | | | | recommended | | | | | formula.Performed by [facility] | | | | | [address], | | | | | [place] [address] | | | + + + + + + + | Specimen | + + | Blood | + + + + + + + | Performing | Address | City/State/Zipcode | Phone Number | | Organization | | | | + + + + + | [facility] | [address] | [place] [address] | | | [facility] | | | | | LABORATORY [facility] | | | | + + + + + ABO Rh (06/10/2018648) + + + + + | Component | Value | Ref Range | Performed At | + + + + + | ABO | O | | [facility] | | | | | [place] | | | | | [facility] | | | | [facility] | + + + + + | Rh Type | Negative | | [facility] | | | | | [place] | | | | | [facility] | | | | [facility] | + + + + + + + + | Narrative | Performed At | + + + | Specimen Expiration Date: [id number] | [facility] | | | [place] | | | [facility] | + + + + + + + + | Performing | Address | City/State/Zipcode | Phone Number | | Organization | | | | + + + + + | [facility] | [address] | [place] [address] | [phone] | | [place] | | | | | [facility] | | | | | [facility] | | | | + + + + + Antibody Screen (06/10/2018648) + + + + + | Component | Value | Ref Range | Performed At | + + + + + | Antibody Screen | Positive | | [facility] | | | | | [place] | | | | | [facility] | | | | [facility] | + + + + + + + + | Narrative | Performed At | + + + | Specimen Expiration Date: [id number] | [facility] | | | [place] | | | [facility] | + + + + + + + + | Performing | Address | City/State/Zipcode | Phone Number | | Organization | | | | + + + + + | [facility] | [address] | [place] [address] | [phone] | | [place] [facility] | | | | | [facility] | | | | | [facility] | | | | + + + + + Antibody identification (06/10/2018 0046) + + + + + | Component | Value | Ref Range | Performed At | + + + + + | Antibody ID | Anti-Jka | | [facility] | | | | | [place] | | | | | [facility] | | | | [facility] | + + + + + + + + | Narrative | Performed At | + + + | Specimen Expiration Date: [id number] | [facility] | | | [place] | | | [facility] | + + + + + + + + | Performing | Address | City/State/Zipcode | Phone Number | | Organization | | | | + + + + + | [facility] | [address] | [place] [address] | [phone] | | [place] | | | | | [facility] | | | | | [facility] | | | | + + + + + Type and Screen (06/10/201845) + + + + + | Component | Value | Ref Range | Performed At | + + + + + | ABO | O | | [facility] | | | | | [place] | | | | | [facility] | | | | [facility] | + + + + + | Rh Type | Negative | | [facility] | | | | | [place] | | | | | [facility] | | | | [facility] | + + + + + | Antibody Screen | Positive | | [facility] | | | | | [place] | | | | | [facility] | | | | [facility] | + + + + + + + | Specimen | + + | Blood | + + + + + | Narrative | Performed At | + + + | Specimen Expiration Date: [id number] | [facility] | | | [place] | | | [facility] | + + + + + + + + | Performing | Address | City/State/Zipcode | Phone Number | | Organization | | | | + + + + + | [facility] | [address] | [place] [address] | [phone] | | [place] [facility] | | | | | [facility] | | | | | [facility] | | | | + + + + + PTT (06/10/20186) + + + + + | Component | Value | Ref Range | Performed At | + + + + + | PTT | 26Comment: Deep venous | 26 - 36 sec | [facility] | | | thrombosis or pulmonary | | [facility] | | | embolism therapeutic | | [facility] | | | heparin levels of 0.3 to | | LABORATORY | | | 0.7 Units/mL anti | | [facility] | | | FactorXa levels usually | | | | | correspond to an aPTT of | | | | | 65 to 99 seconds. Acute | | | | | cardiac syndrome | | | | | therapeutic range based | | | | | on heparin levels of 0.2 | | | | | to 0.5 usually | | | | | correspond to an aPTT of | | | | | 57 to 76 seconds. | | | | | Pediatric guidelines | | | | | suggested heparin levels | | | | | of 0.35 to 0.7 usually | | | | | correspond to an aPTT of | | | | | 69 to 99 | | | | | seconds.Performed by [facility] | | | | | [address], | | | | | [place] [address] | | | + + + + + + + | Specimen | + + | Blood | + + + + + + + | Performing | Address | City/State/Zipcode | Phone Number | | Organization | | | | + + + + + | [facility] | [address] | [place] [address] | | | [facility] | | | | | [place] | | | | + + + + + CV CARDIAC PROCEDURE (06/09/2018 1309) + +-------+ + + | Component | Value | Ref Range | Performed At | + +-------+ + + | LVEF-LVGRAM CARDIAC | 37 | % | [facility] | | CATH | | | | + +-------+ + + + + | Addenda | + + | Addendum by Shad Schuler MD on 06/09/2018 18:41 1. Severely calcified | | coronaries with severe three-vessel CAD including 60% distal left main, 90% ostial | | circumflex, 99% proximal circumflex, obtuse marginal 4 and 5 disease, ostial and | | proximal 40% LAD, 95% ostial septal deposition reporter, 70% mid and distal LAD, 100% mid RCA | | with left to right collaterals to a medium PDA and posterolateral. 2. Ischemic | | cardiomyopathy with a moderate very severe mid to basal inferior wall motion | | abnormalities, anterolateral wall motion abnormality, hyperkinetic anterior wall and | | apex, overall EF about 37%. 3. Normal LV end-diastolic pressure, 10-12 mmHg. | | 4. Severe mitral annular calcification. No significant mitral regurgitation. | | 5. Patient's back problem made it difficult to [...] Performed At | + + + | | [facility] | | 1. Severely calcified coronaries with severe three-vessel CAD | | | including 60% distal left main, 90% ostial circumflex, 99% proximal | | | circumflex, obtuse marginal 4 and 5 disease, ostial and proximal 40% | | | LAD, 95% ostial septal deposition reporter, 70% mid and distal LAD, 100% mid | | | RCA with left to right collaterals to a medium PDA and | | | posterolateral.2. Ischemic cardiomyopathy with a moderate very | | | severe mid to basal inferior wall motion abnormalities, anterolateral | | | wall motion abnormality, hyperkinetic anterior wall and apex, overall | | | EF about 37%.3. Normal LV end-diastolic pressure, 10-12 | | | mmHg.4. Severe mitral annular calcification. No significant | | | mitral regurgitation.5. Patient's back problem made it difficult to | | | lie on the table without moving her legs. Successful right radial | | | approach today. PLANS: CT surgery consult for CABG. For additional | | | detail as to the procedures performed and the equipment that was | | | utilized, please refer to the Procedure Log. | | | | | | | | | | | | | | |For additional detail as to the procedures performed and the equipment | | |that was utilized, please refer to the Procedure Log. | | | | | + + + + +---------+ + + | Performing | Address | City[facility] | Phone Number | | Organization | | | | + +---------+ + + | [facility] | | | | + +---------+ + + LVEF VALUE (06/09/2018 1300) + +-------+ + + | Component | Value | Ref Range | Performed At | + +-------+ + + | LVEF-LVGRAM CARDIAC | 37 | % | | | CATH | | | | + +-------+ + + NM Nuclear Stress Test (Exercise) (06/09/2018 104) + +--------+ + + | Component | Value | Ref Range | Performed At | + +--------+ + + | BASELINE HEART RATE | 85 | bpm | [facility] | + +--------+ + + | BASELINE BLOOD | 144/82 | mmHg | [facility] | | PRESSURE | | | | + +--------+ + + | PEAK HEART RATE | 113 | | [facility] | + +--------+ + + | PEAK BLOOD PRESSURE | 137/76 | mmHG | [facility] | + +--------+ + + | Target HR | 133 | | [facility] | + +--------+ + + | Percent HR | 72 | | [facility] | + +--------+ + + | Estimated rate | 16,498 | | [facility] | | pressure | | | | + +--------+ + + | ST Elevation (mm) | 0.0 | mm | [facility] | + +--------+ + + | LVEF-SPECT NUCLEAR | 32 | % | [facility] | | STRESS/VIABILITY | | | | + +--------+ + + | NM stress end | 155 | | [facility] | | diastolic volume | | | | + +--------+ + + | NM stress end | 105 | | [facility] | | systolic volume | | | | + +--------+ + + | TID VALUE | 1.09 | | [facility] | + +--------+ + + + + + | Narrative | Performed At | + + + | 1. High | [facility] | | risk study due to ischemia with remote infarction, low EF and poor | | | exercise tolerance2. Anterior septal ischemia, mid to apical. | | | Moderate severity. 3. Cardiomyopathy, EF calculated 32% - may be | | | off due to total lack of counts in the inferior and lateral castillo from | | | prior OR. 4. Mild destinee infarct ischemia. LARGE SEVERE inferior and | | | Lateral OR. Cath will be recommended to see best [...] +---------+ + + ECG 12 lead (06/09/2018 0421) + + + | Narrative | Performed At | + + + | HEART RATE:70 | [facility] | | bpmRR Interval:857 msAtrial Rate:70 msP-R Interval:156 msP | [facility] | | Duration:176 msP Horizontal [place]:19 degP Front [place]:70 degQ Onset:512 | | | msQRSD Interval:110 msQT Interval:444 msQTcB:480 msQTcF:467 msQRS | | | Horizontal [place]:157 degQRS Columbia:-77 degI-40 Horizontal [place]:75 degI-40 | | | Front [place]:-59 degT-40 Horizontal [place]:240 degT-40 Front [place]:267 | | | degT Horizontal [place]:91 degT Wave [place]:68 degS-T Horizontal [place]:98 | | | degS-T Front [place]:103 degSeverity:- ABNORMAL ECG -INTERP:SINUS | | | RHYTHMINTERP:NONSPECIFIC IVCD WITH LADINTERP:INFERIOR INFARCT, | | | OLDElectronically signed by: ELIZABETH CAMPBELL 06-12-2018 11:25:24 | | |QTcB:480 ms | | |QTcF:467 ms | | |QRS Horizontal [place]:157 deg | | |QRS Columbia:-77 deg | | |I-40 Horizontal [place]:75 deg | | |I-40 Front [place]:-59 deg | | |T-40 Horizontal [place]:240 deg | | |T-40 Front [place]:267 deg | | |T Horizontal [place]:91 deg | | |T Wave [place]:68 deg | | |S-T Horizontal [place]:98 deg | | |S-T Front [place]:103 deg | | |Severity:- ABNORMAL ECG - | | |INTERP:SINUS RHYTHM | | |INTERP:NONSPECIFIC IVCD WITH LAD | | |INTERP:INFERIOR INFARCT, OLD | | |Electronically signed by: ELIZABETH CAMPBELL 06-12-2018 11:25:24 | | + + + + + + + + | Performing | Address | City/State/Zipcode | Phone Number | | Organization | | | | + + + + + | [facility] | [address] | [place] [address] | [phone] | + + + + + Magnesium (06/09/20187) + + + +--------- --------+ | Component | Value | Ref Range | Performe d At | + + + +--------- --------+ | Magnesium | 2.1Comment: Performed | 1.7 - 2.4 mg/dL | [facility] | | | by [facility] [address], | | [address] [place] [address] | | | [place] [address] | | [facility] | | |Performed by [facility] [address], [place] [address] | | [facility] | | | | | [facility] | + + + +--------- --------+ + + | Specimen | + + | Blood | + + + + + + + | Performing | Address | City/State/Zipcode | Phone Number | | Organization | | | | + + + + + | [facility] | [address] | [place] [address] | | | [facility] | | | | | LABORATORY [place] | | | | + + + + + CBC with Differential (06/09/2018 0307) + + + --+ + | Component | Value | Ref Range | Performed At | + + + --+ + | WBC | 7.3 | 3.8 - 11.0 K/uL | [facility] | | | | | [facility] | | | | | [facility] | | | | | LABORATORY | | | | | [place] | + + + --+ + | RBC | 4.64 | 3.70 - 5.10 M/u L | [facility] | | | | | LAB[facility]ATORY | | | | | [facility] | + + + --+ + | Hgb | 13.9 | 11.3 - 15.5 g/d L | [facility] | | | | | LABORATORY | | | | | [place] | + + + --+ + | Hct | 41.4 | 34.0 - 46.0 % | [facility] | | | | | LAB[facility]ATORY | | | | | [facility] | + + + --+ + | MCV | 89.3 | 80.0 - 100.0 fL | [facility] | | | | | LAB[facility]ATORY | | | | | [facility] | + + + --+ + | MCH | 29.9 | 27.0 - 34.0 pg | [facility] | | | | | LAB[facility]ATORY | | | | | [facility] | + + + --+ + | MCHC | 33.5 | 32.0 - 35.5 g/d L | [facility] | | | | | LAB[facility]ATORY | | | | | [facility] | + + + --+ + | RDW-CV | 15.2 | 11.0 - 15.5 % | [facility] | | | | | LAB[facility]ATORY | | | | | [facility] | + + + --+ + | Platelet Count | 332 | 150 - 400 K/uL | [facility] | | | | | LAB[facility]ATORY | | | | | [facility] | + + + --+ + | MPV | 7.0 (L) | 7.5 - 11.2 fL | [facility] | | | | | LAB[facility]ATORY | | | | | [facility] | + + + --+ + | % Neutrophils | 59.1 | 40.0 - 75.0 % | [facility] | | | | | LAB[facility]ATORY | | | | | [facility] | + + + --+ + | % Lymphocytes | 29.5 | 15.0 - 48.0 % | [facility] | | | | | LAB[facility]ATORY | | | | | [facility] | + + + --+ + | % Monocytes | 8.0 | 0.0 - 12.0 % | [facility] | | | | | LAB[facility]ATORY | | | | | [facility] | + + + --+ + | % Eosinophils | 2.4 | 0.0 - 7.0 % | [facility] | | | | | LAB[facility]ATORY | | | | | [facility] | + + + --+ + | % Basophils | 1.0 | 0.0 - 2.0 % | [facility] | | | | | LAB[facility]ATORY | | | | | [facility] | + + + --+ + | Absolute Neutrophils | 4.30 | 1.90 - 7.40 K/u L | [facility] | | | | | LAB[facility]ATORY | | | | | [facility] | + + + --+ + | Absolute Lymphocytes | 2.15 | 1.00 - 3.90 K/u L | [facility] | | | | | LABORATORY | | | | | [facility] | + + + --+ + | Absolute Monocytes | 0.58 | 0.00 - 0.80 K/u L | [facility] | | | | | LAB[facility]ATORY | | | | | [facility] | + + + --+ + | Absolute Eosinophils | 0.18 | 0.00 - 0.50 K/u L | [facility] | [facility] | | | | | LAB[facility]ATORY | | | | | [facility] | + + + --+ + | Absolute Basophils | 0.07Comment: Performed | 0.00 - 0.10 K/u L | [facility] | | | by [facility] [address], | | [facility] | | | [place] [address] | | [facility] | | |Performed by [facility] [address], [place] [address] | | LABORATORY | | | | | [place] | + + + --+ + + + | Specimen | + + | Blood | + + + + + + + | Performing | Address | City/State/Zipcode | Phone Number | | Organization | | | | + + + + + | [facility] | [address] | [place] [address] | | | [facility] | | | | | [place] | | | | + + + + + Basic Metabolic Panel (06/09/2018 0307) + + + + + | Component | Value | Ref Range | Performed At | + + + + + | NA | 137 | 135 - 145 mmol/L | [facility] | [facility] | | | | | LAB[facility]ATORY | | | | | [facility] | + + + + + | K | 4.6 | 3.5 - 5.0 mmol/L | [facility] | | [facility] | [facility] | | | | | LABORATORY | | | | | [facility] | + + + + + | CL | 108 | 99 - 109 mmol/L | [facility] | | [facility] | | | | | LABORATORY | | | | | [facility] | + + + + + | CO2 | 22 | 21 - 28 mmol/L | [facility] | | [facility] | [facility] | | | | | LABORATORY | | | | | [facility] | + + + + + | ANION GAP | 7 | 5 - 16 mmol/L | [facility] | | [facility] | [facility] | | | | | LABORATORY | | | | | [facility] | + + + + + | CALCIUM | 9.0 | 8.5 - 10.2 mg/dL | [facility] | | [facility] | | [facility] | | | | | LABORATORY | | | | | [place] | + + + + + | BUN | 14 | 8 - 25 mg/dL | [facility] | | [facility] | | | | | LABORATORY | | | | | [facility] | + + + + + | Creatinine, | 0.82 | 0.50 - 1.00 mg/dL | [facility] | | Serum/Plasma | | | [facility] | | | | [facility] | | | | | LABORATORY | | | | | [facility] | + + + + + | GLUCOSE | 96 | 65 - 99 mg/dL | [facility] | | | | | [facility] | | | [facility] | | | | | LABORATORY | | | | | [facility] | + + + + + | Estimated GFR | 76 (L)Comment: eGFR<60 | >=90 mL/min/1.73m2 | [facility] | | | consistent with impaired | | [facility] | | | kidney | | [facility]ENTER | | | function.Performed by | | LABORATORY | | | [facility] [address], | | [place] | | | [place] [address] | | | + + + + + + + | Specimen | + + | Blood | + + + + + + + | Performing | Address | City/State/Zipcode | Phone Number | | Organization | | | | + + + + + | [facility] | [address] | [place] [address] | | | [facility] | | | | | [place] | | | | + + + + + ECHO Complete (06/08/2018 1152) + +--------+ + + | Component | Value | Ref Range | Performed At | + +--------+ + + | LVEF-TTE | 45 | % | [facility] | | TRANSTHORACIC ECHO | | | | + +--------+ + + | BASELINE BLOOD | 143/80 | mmHg | [facility] | | PRESSURE | | | | + +--------+ + + | Patient Weight (lbs) | 140 lb | | [facility] | + +--------+ + + | Patient Height | 68 in | | [facility] | + +--------+ + + | RA PRESSURE | 3 | mmHg | [facility] | + +--------+ + + | LVIDd | 4.45 | cm | [facility] | + +--------+ + + | FS | 21 | % | [facility] | + +--------+ + + | LA volume | 64.9 | mL | [facility] | + +--------+ + + | Ascending aorta | 2.9 | cm | [facility] | + +--------+ + + | AV mean gradient | 5 | mmHg | [facility] | + +--------+ + + | Aortic Valve Area by | 2.6 | cm2 | [facility] | | Continuity VTI | | | | + +--------+ + + | LVOT diameter | 2.1 | cm | [facility] | + +--------+ + + | LVOT peak padmini | 103 | cm/s | [facility] | + +--------+ + + | LVOT peak VTI | 20.9 | cm | [facility] | + +--------+ + + | AV peak padmini | 150 | cm/s | [facility] | + +--------+ + + | AV VTI | 27.8 | cm | [facility] | + +--------+ + + | AV peak gradient | 9 | mmHg | [facility] | + +--------+ + + | MV peak gradient | 2.26 | mmHg | [facility] | + +--------+ + + | LA Volume Index | 37 | mL/m2 | [facility] | + +--------+ + + | AV LVOT Peak | 4 | mmHg | [facility] | | Gradient | | | | + +--------+ + + | AV LVOT Mean | 2 | mmHg | [facility] | | Gradient | | | | + +--------+ + + | TR Peak Gradient | 19 | mmHg | [facility] | + +--------+ + + | TR Velocity | 217 | cm | [facility] | + +--------+ + + | LV Puga's Biplane | 51 | % | [facility] | | EF | | | | + +--------+ + + | LV ED Volume | 88.1 | ml | [facility] | | (Puga's) | | | | + +--------+ + + | LV ED Volume Index | 50 | ml/m2 | [facility] | + +--------+ + + | LV ES Volume | 43.6 | ml | [facility] | + +--------+ + + | LVOT Mean Velocity | 68.4 | cm/s | [facility] | + +--------+ + + | RVSP Estimated | 22 | mmHg | [facility] | + +--------+ + + | MV E' Lateral | 4.9 | cm/s | [facility] | | Velocity | | | | + +--------+ + + | MV E' Septal | 3.7 | cm/s | [facility] | | Velocity | | | | + +--------+ + + | MV Deceleration Time | 391 | msec | [facility] | + +--------+ + + | MV E/A Ratio | 0.59 | | [facility] | + +--------+ + + | MV Peak A-Wave | 127 | cm/s | [facility] | + +--------+ + + | MV Peak E-Wave | 75.2 | cm/s | [facility] | + +--------+ + + | AV Mean Velocity | 103 | cm/s | [facility] | + +--------+ + + | LA/Aorta Ratio | 1.19 | | [facility] | + +--------+ + + | LA Area | 20.3 | cm2 | [facility] | + +--------+ + + | LA Systolic Pressure | 21.18 | mmHg | [facility] | + +--------+ + + | MV E/E SEPTAL | 20.32 | | [facility] | + +--------+ + + | MV E/E LATERAL | 15.35 | | [facility] | + +--------+ + + | LA Major | 0.278 | cm | [facility] | + +--------+ + + | LV ES Volume Index | 25 | ml/m2 | [facility] | + +--------+ + + | Cardiac Output | 5.57 | l/min | [facility] | + +--------+ + + | Cardiac Index | 3.16 | l/min/m2 | [facility] | + +--------+ + + | Heart Rate | 74 | | [facility] | + +--------+ + + | Aortic Root Diameter | 3.2 | cm | [facility] | + +--------+ + + | IVS Diastolic | 1.29 | cm | [facility] | | Thickness MM | | | | + +--------+ + + | LVPW Diastolic | 0.88 | cm | [facility] | | Thickness MM | | | | + +--------+ + + | IVS Systolic | 1.52 | cm | [facility] | | Thickness MM | | | | + +--------+ + + | LV Systolic Diameter | 3.52 | cm | [facility] | | MM | | | | + +--------+ + + | LVPW Systolic | 0.87 | cm | [facility] | | Thickness MM | | | | + +--------+ + + | LA Systolic Diameter | 3.8 | cm | [facility] | | MM | | | | + +--------+ + + + + + | Narrative | Performed At | + + + | 1. Overall EF | [facility] | | about 45% with moderate hypokinesis of the basal lateral wall and | | | severe hypokinesis of the mid to basal inferior wall. Mild LVH. | | | 2. Normal RV, Atria, IVC, pericardium, and aorta size. | | | 3. Moderate mitral annular calcification with posteriorly | | | associated small mobile echodensity (on the atrial side) most | | | consistent with calcification. No stenosis & trace MR. 4. Mild | | | aortic valve sclerosis. Trace Tricuspid regurgitation. Normal | | | estimated peak PA pressure < 25 mm Hg. Excellent with stable old | | | Infarction. This is encouraging. | | | | | | | | + + + + +---------+ + + | Performing | Address | City/State/Zipcode | Phone Number | | Organization | | | | + +---------+ + + | [facility] | | | | + +---------+ + + Troponin I (06/08/2018 0921) + + + + + | Component | Value | Ref Range | Performed At | + + + + + | Troponin I | 0.260 (AA)Comment: | 0.000 - 0.069 ng/mL | [facility] | | | Critical TRPI called to | | [facility] | | | and read back by LEANN Sandhu | | [facility] | | | at 06/08/2018 10:03:33 | | LABORATORY | | | PDT by 0.070 - | | [place] | | | 0.299 ng/ml, Low | | | | | Positive. In absence | | | | | of a diagnostic EKG, | | | | | low positive results on | | | | | initial screening have | | | | | poor positive predictive | | | | | value and should be | | | | | repeated in 3-6 | | | | | hours.Ultra-Sensitive | | | | | TroponinPerformed by [facility] | | | | | [address], | | | | | [place] | | | + + + + + + + | Specimen | + + | Blood | + + + + + + + | Performing | Address | City/State/Zipcode | Phone Number | | Organization | | | | + + + + + | [facility] | [address] | [place] | | | [facility] | | | | | [place] | | | | + + + + + ECG 12 lead (06/08/2018 0430) + + + | Narrative | Performed At | + + + | HEART RATE:94 | [facility] | | bpmRR Interval:638 msAtrial Rate:95 msP-R Interval:148 msP | [facility] | | Duration:200 msP Horizontal [place]:19 degP Front [place]:58 degQ Onset:512 | | | msQRSD Interval:110 msQT Interval:404 msQTcB:506 msQTcF:469 msQRS | | | Horizontal [place]:184 degQRS [place]:265 degI-40 Horizontal [place]:78 degI-40 | | | Front [place]:269 degT-40 Horizontal [place]:240 degT-40 Front [place]:259 | | | degT Horizontal [place]:77 degT Wave [place]:63 degS-T Horizontal [place]:83 | | | degS-T Front [place]:99 degSeverity:- ABNORMAL ECG -INTERP:SINUS | | | RHYTHMINTERP:NONSPECIFIC IVCD WITH LADINTERP:INFERIOR INFARCT, | | | OLDElectronically signed by: ELIZABETH CAMPBELL 06-12-2018 11:24:43 | | |QTcB:506 ms | | |QTcF:469 ms | | |QRS Horizontal [place]:184 deg | | |QRS [place]:265 deg | | |I-40 Horizontal [place]:78 deg | | |I-40 Front [place]:269 deg | | |T-40 Horizontal [place]:240 deg | | |T-40 Front [place]:259 deg | | |T Horizontal [place]:77 deg | | |T Wave [place]:63 deg | | |S-T Horizontal [place]:83 deg | | |S-T Front [place]:99 deg | | |Severity:- ABNORMAL ECG - [...] + + | [facility] | [address] | [place] [address] | [phone] | + + + + + Troponin I (06/08/2018 0316) + + + + + | Component | Value | Ref Range | Performed At | + + + + + | Troponin I | 0.311 (AA)Comment: | 0.000 - 0.069 ng/mL | [facility] | | | Critical troponin called | | [facility] | | | to and read back by | | [facility] | | | luis soto at | | LABORATORY | | | 06/08/2018 04:58:11 PDT | | [facility] | | | by mlc. >/= 0.300 | | | | | ng/ml. Consistant | | | | | with traditional acute | | | | | myocardial | | | | | infarction. Serial | | | | | Troponin levels are | | | | | recommended.Ultra-Sensit | | | | | bolivar TroponinPerformed by | | | | | [facility] [address], | | | | | [place] [address] | | | + + + + + + + | Specimen | + + | Blood | + + + + + + + | Performing | Address | City/State/Zipcode | Phone Number | | Organization | | | | + + + + + | [facility] | [address] | [place] [address] | | | [facility] | | | | | [place] | | | | + + + + + Magnesium (06/08/2018315) + + + +--------- --------+ | Component | Value | Ref Range | Performe d At | + + + +--------- --------+ | Magnesium | 1.8Comment: Performed | 1.7 - 2.4 mg/dL | [facility] | | | by [facility] [address], | | [place] | | | [place], [place] | | [facility] | | |Performed by [facility] [address], [place], [place] | | [facility] | | | | | [facility] | + + + +--------- --------+ + + | Specimen | + + | Blood | + + + + + + + | Performing | Address | City/State/Zipcode | Phone Number | | Organization | | | | + + + + + | [facility] | [address] | [place], [place] | | | [facility] | | | | | LABORATORY [place] | | | | + + + + + Renal Function Panel (06/08/2018315) + + + + + | Component | Value | Ref Range | Performed At | + + + + + | NA | 137 | 135 - 145 mmol/L | [facility] | | | | [facility] | | | [facility] | | | | | LABORATORY | | | | | [place] | + + + + + | K | 3.6 | 3.5 - 5.0 mmol/L | [facility] | | | | | [facility] | | | | [facility] | | | | | LABORATORY | | | | | [place] | + + + + + | CL | 103 | 99 - 109 mmol/L | [facility] | | | | | [facility] | | | | [facility] | | | | | LABORATORY | | | | | [place] | + + + + + | CO2 | 23 | 21 - 28 mmol/L | [facility] | | | | | [facility] | | | [facility] | | | | | LABORATORY | | | | | [facility] | + + + + + | ANION GAP | 11 | 5 - 16 mmol/L | [facility] | | | | | [facility] | | | | [facility] | | | | | LABORATORY | | | | | [facility] | + + + + + | CALCIUM | 9.0 | 8.5 - 10.2 mg/dL | [facility] | | | | | [facility] | | | | | [facility] | | | | | LABORATORY | | | | | [place] | + + + + + | ALBUMIN | 4.4 | 3.3 - 4.8 g/dL | [facility] | | | | | [facility] | | | | | [facility] | | | | | LABORATORY | | | | | [place] | + + + + + | BUN | 10 | 8 - 25 mg/dL | [facility] | | | | | [facility] | | | | | [facility] | | | | | LABORATORY | | | | | [place] | + + + + + | Creatinine, | 0.78 | 0.50 - 1.00 mg/dL | [facility] | | Serum/Plasma | | | [facility] | | | | | [facility] | | | | | LABORATORY | | | | | [place] | + + + + + | GLUCOSE | 111 (H) | 65 - 99 mg/dL | [facility] | | | | | [facility] | | | | | [facility] | | | | | LABORATORY | | | | | [place] | + + + + + | Phosphorus | 2.8 | 2.6 - 4.4 mg/dL | [facility] | | | | | [facility] | | | | | [facility] | | | | | LABORATORY | | | | | [place] | + + + + + | Estimated GFR | 81 (L)Comment: eGFR<60 | >=90 mL/min/1.73m2 | [facility] | | | consistent with impaired | | [facility] | | | kidney | | [facility] | | | function.Performed by | | LABORATORY | | | [facility] [address], | | [place] | | | [place] [address] | | | + + + + + + + | Specimen | + + | Blood | + + + + + + + | Performing | Address | City/State/Zipcode | Phone Number | | Organization | | | | + + + + + | [facility] | [address] | [place] [address] | | | [facility] | | | | | LABORATORY [facility] | | | | + + + + + Troponin I (06/07/20182050) + + + + + | Component | Value | Ref Range | Performed At | + + + + + | Troponin I | 0.293 (AA)Comment: | 0.000 - 0.069 ng/mL | [facility] | | | Critical TROP called to | | [facility] | | | and read back by 6S | | [facility] | | | MATTI Herrera at 1233 by | | LABORATORY | | | 0.070 - 0.299 ng/ml, | | [facility] | | | Low Positive. In | | | | | absence of a diagnostic | | | | | EKG, low positive | | | | | results on initial | | | | | screening have poor | | | | | positive predictive | | | | | value and should be | | | | | repeated in 3-6 | | | | | hours.Ultra-Sensitive | | | | | TroponinPerformed by [facility] | | | | | [address], | | | | | [place] [address] | | | + + + + + + + | Specimen | + + | Blood | + + + + + + + | Performing | Address | City/State/Zipcode | Phone Number | | Organization | | | | + + + + + | [facility] | [address] | [place] [address] | | | [facility] | | | | | LABORATORY [facility] | | | | + + + + + Troponin I (06/07/2018 1626) + + + + + | Component | Value | Ref Range | Performed At | + + + + + | Troponin I | 0.307 (AA)Comment: | 0.000 - 0.069 ng/mL | [facility] | | | Critical TROP called to | | [facility] | | | and read back by 6S | [facility] | | | HECTOR Mcclain at 1710 by | | LABORATORY | | | [place]. >/= 0.300 | | [facility] | | | ng/ml. Consistant | | | | | with traditional acute | | | | | myocardial | | | | | infarction. Serial | | | | | Troponin levels are | | | | | recommended.Ultra-Sensit | | | | | bolivar TroponinPerformed by | | | | | [facility] [address], | | | | | [place] [address] | | | + + + + + + + | Specimen | + + | Blood | + + + + + + + | Performing | Address | City/State/Zipcode | Phone Number | | Organization | | | | + + + + + | [facility] | [address] | [place] [address] | | | [facility] | | | | | LABORATORY [place] | | | | + + + + + CK Total with CK-MB (06/07/2018 1135) + + + + + | Component | Value | Ref Range | Performed At | + + + + + | CK TOTAL | 85 | 30 - 240 U/L | [facility] | | | | | [facility] | | | | [facility] | | | | | LABORATORY | | | | | [place] | + + + + + | CK-MB | 3.1 | 0.0 - 7.4 ng/mL | [facility] | | | | | [facility] | | | | | [facility] | | | | | LABORATORY | | | | | [place] | + + + + + | CK-MB Index | 3.6 (H)Comment: | 0.0 - 3.1 % | [facility] | | | Performed by [facility] [address] | | [facility] | | | [address] [place], [place] | | [facility]ENTER | | | [address] | | LABORATORY | | | | | [place] | + + + + + + + | Specimen | + + | Blood | + + + + + + + | Performing | Address | City/State/Zipcode | Phone Number | | Organization | | | | + + + + + | [facility] | [address] | [place] [address] | | | [facility] | | | | | LABORATORY [place] | | | | + + + + + XR Chest PA and Lateral (06/07/2018921) + + + | Narrative | Performed [...] | Tim, Rad Results In - 06/07/2018 0931 PDT | | CHEST TWO VIEWS | [...] + + Drugs of Abuse, Screen, Urine (06/07/201814) + + + + + | Component | Value | Ref Range | Performed At | + + + + + | Tricyclics, UR | Negative | Negative | [facility] | | | | | [facility] | | | | | [facility] | | | | | LABORATORY | | | | | [place] | + + + + + | Amphetamine Screen, | Positive (A) | Negative | [facility] | | Urine | | | [facility] | | | | | [facility] | | | | | LABORATORY | | | | | [place] | + + + + + | Barbiturate Screen | Negative | Negative | [facility] | | Urine | | | [facility] | | | | | [facility] | | | | | LABORATORY | | | | | [place] | + + + + + | Benzodiazepines, | Negative | Negative | [facility] | | Urine, Screen (200 | | | [facility] | | ng/mL) | | | [facility] | | | | | LABORATORY | | | | | [place] | + + + + + | Cocaine Screen, | Negative | Negative | [facility] | | Urine | | | [facility] | | | | | [facility] | | | | | LABORATORY | | | | | [place] | + + + + + | Opiate Screen, Urine | Positive (A) | Negative | [facility] | | | | | [facility] | | | | | [facility] | | | | | LABORATORY | | | | | [place] | + + + + + | Oxycodone, UR | Negative | Negative | [facility] | | | | | [facility] | | | | | [facility] | | | | | LABORATORY | | | | | [place] | + + + + + | Cannabinoids Screen, | Positive (A) | Negative | [facility] | | Urine | | | [facility] | | | | | [facility] | | | | | LABORATORY | | | | | [place] | + + + + + | Buprenorphine | Negative | Negative | [facility] | | Screen, Urine | | | [facility] | | | | | [facility] | | | | | LABORATORY | | | | | [facility] | + + + + + | Phencyclidine, | Negative | Negative | [facility] | | Screen, Urine | | | [facility] | | | | | [facility] | | | | | LABORATORY | | | | | [facility] | + + + + + | Porpoxyphene Screen, | Negative | Negative | [facility] | | Urine | | | [facility] | | | | | LABORATORY | | | | | [facility] | + + + + + | Methamphetamine | Positive (A) | Negative | [facility] | | Quant, Ur | | | [facility] | [facility] | | | | | LABORATORY | | | | | [facility] | + + + + + | Methadone Screen, | Negative | Negative | [facility] | | Urine | | | [facility] | | | | | [facility] | | | | | LABORATORY | | | | | [facility] | + + + + + | U Tox Comment | See CommentComment: | | [facility] | | | This entire battery is | | [facility] | | | for screening purposes | | [facility] | | | only. Results are not | | LABORATORY | | | confirmed.Results from | | [facility] | | | any unconfirmed drug in | | | | | this screening battery | | | | | should not be used for | | | | | legal purposes. Please | | | | | note: Some | | | | | medications cause | | | | | positive results with | | | | | any or all tested drugs | | | | | in this | | | | | battery.Performed by [facility] | | | | | [address], | | | | | [place] [address] | | | + + + + + + + | Specimen | + + | Urine | + + + + + + + | Performing | Address | City/State/[facility] | Phone Number | | Organization | | | | + + + + + | [facility] | [address] | [place] [address] | | | [facility] | | | | | LABORATORY [facility] | | | | + + + + + Troponin I (06/07/201810) + + + + + | Component | Value | Ref Range | Performed At | + + + + + | Troponin I | 0.305 (AA)Comment: | 0.000 - 0.069 ng/mL | [facility] | | | Critical TRPI called to | | [facility] | | | and read back by | | [facility] | | | TAYA john | | LABORATORY | | | 06/07/2018 09:53:45 PDT | | [facility] | | | by JANET. >/= 0.300 | | | | | ng/ml. Consistant | | | | | with traditional acute | | | | | myocardial | | | | | infarction. Serial | | | | | Troponin levels are | | | | | recommended. >/= 0.300 | | | | | ng/ml. Consistant | | | | | with traditional acute | | | | | myocardial | | | | | infarction. Serial | | | | | Troponin levels are | | | | | recommended.Ultra-Sensit | | | | | bolivar TroponinCorrected | | | | | from 0.305 ng/mL [CRIT] | | | | | on 06/07/18 9:53:54 PDT | | | | | by TAO | | | | | [place].Performed by [facility] [address] | | | | | [address] [place] | | | | | [address] | | | + + + + + + + | Specimen | + + | Blood | + + + + + + + | Performing | Address | City/State/Zipcode | Phone Number | | Organization | | | | + + + + + | [facility] | [address] | [place] | | | [facility] | | | | | [facility] | | | | + + + + + Myoglobin (06/07/201810) + + + +----- + | Component | Value | Ref Range | Perf ormed At | + + + +----- + | MYOGLOBIN, SERUM | 69Comment: Performed by | 0 - 69 ng/mL | [facility] | | | [facility] [address], | | [facility] | | | [place] | | [facility] | | |Performed by [facility] [address], [place] | | [facility] | | | | | [facility] | + + + +----- + + + | Specimen | + + | Blood | + + + + + + + | Performing | Address | City/State/Zipcode | Phone Number | | Organization | | | | + + + + + | [facility] | [address] | [place] [address] | | | [facility] | | | | | [place] | | | | + + + + + Lipase (06/07/2018909) + + + + ----+ | Component | Value | Ref Range | Performed At | + + + + ----+ | Lipase | 32Comment: Performed by | 11 - 82 U/L | [facility] | | | [facility] [address], | | [facility] | | | [place] [address] | | MEDICAL CENT ER | | |Performed by [facility] [address], [place] [address] | | LABORATORY | | | | | [facility] | + + + + ----+ + + | Specimen | + + | Blood | + + + + + + + | Performing | Address | City/State/Zipcode | Phone Number | | Organization | | | | + + + + + | [facility] | [address] | [place] [address] | | | [facility] | | | | | LABORATORY [facility] | | | | + + + + + Comprehensive Metabolic Panel (06/07/2018909) + + + + + | Component | Value | Ref Range | Performed At | + + + + + | NA | 140 | 135 - 145 mmol/L | [facility] | | | | | [facility] | | [facility] | | | | | LABORATORY | | | | | [facility] | + + + + + | K | 4.3 | 3.5 - 5.0 mmol/L | [facility] | | | | | [facility] | | | | [facility] | | | | | LABORATORY | | | | | [facility] | + + + + + | CL | 106 | 99 - 109 mmol/L | [facility] | | | | | [facility] | | [facility] | | | | | LABORATORY | | | | | [facility] | + + + + + | CO2 | 22 | 21 - 28 mmol/L | [facility] | | | | | [facility] | | | [facility] | | | | | LAB[facility]ATORY | | | | | [facility] | + + + + + | CALCIUM | 10.1 | 8.5 - 10.2 mg/dL | [facility] | | | | | [facility] | | | [facility] | | | | | LABORATORY | | | | | [facility] | + + + + + | ANION GAP | 12 | 5 - 16 mmol/L | [facility] | | | | | [facility] | | [facility] | | | | | LAB[facility]ATORY | | | | | [facility] | + + + + + | ALBUMIN | 4.9 (H) | 3.3 - 4.8 g/dL | [facility] | | | | | [facility] | | [facility] | | | | | LAB[facility]ATORY | | | | | [facility] | + + + + + | BUN | 18 | 8 - 25 mg/dL | [facility] | | | | | [facility] | | | | [facility] | | | | | LAB[facility]ATORY | | | | | [facility] | + + + + + | Creatinine, | 0.80 | 0.50 - 1.00 mg/dL | [facility] | | Serum/Plasma | | | [facility] | | | | [facility] | | | | | LABORATORY | | | | | [facility] | + + + + + | GLUCOSE | 138 (H) | 65 - 99 mg/dL | [facility] | | | | | [facility] | | | [facility] | | | | | LAB[facility]ATORY | | | | | [facility] | + + + + + | Total protein | 8.2 (H) | 6.1 - 7.8 g/dL | [facility] | | | | | [facility] | | | | [facility] | | | | | LABORATORY | | | | | [facility] | + + + + + | ALK PHOS | 161 (H) | 35 - 115 U/L | [facility] | | | | | [facility] | | | | [facility] | | | | | LABORATORY | | | | | [facility] | + + + + + | ALT | 20 | 10 - 65 U/L | [facility] | | | | | [facility] | | | | [facility] | | | | | LABORATORY | | | | | [facility] | + + + + + | AST | 24 | 10 - 45 U/L | [facility] | | | | | [facility] | | | | [facility] | | | | | LAB[facility]ATORY | | | | | [facility] | + + + + + | Bilirubin Total | 0.4 | 0.2 - 1.1 mg/dL | [facility] | | | | | [facility] | | | | [facility] | | | | | LAB[facility]ATORY | | | | | [facility] | + + + + + | Estimated GFR | 79 (L)Comment: eGFR<60 | >=90 mL/min/1.73m2 | [facility] | | | consistent with impaired | | [facility] | | | kidney | | [facility]ENTER | | | function.Performed by | | LABORATORY | | | [facility] [address], | | [place] | | | [place] [address] | | | + + + + + + + | Specimen | + + | Blood | + + + + + + + | Performing | Address | City/State/Zipcode | Phone Number | | Organization | | | | + + + + + | [facility] | [address] | [place] [address] | | | [facility] | | | | | LAB[facility]ATORY [place] | | | | + + + + + CBC with Differential (06/07/201810) + + + --+ + | Component | Value | Ref Range | Performed At | + + + --+ + | WBC | 11.6 (H) | 3.8 - 11.0 K/uL | [facility] | | | | | [facility] | | [facility] | | | | | LABORATORY | | | | | [facility] | + + + --+ + | RBC | 5.06 | 3.70 - 5.10 M/u L | [facility] | | | | | [facility] | | | | [facility] | | | | | LABORATORY | | | | | [facility] | + + + --+ + | Hgb | 15.1 | 11.3 - 15.5 g/d L | [facility] | | | | | [facility] | | | [facility] | | | | | LAB[facility]ATORY | | | | | [facility] | + + + --+ + | Hct | 44.3 | 34.0 - 46.0 % | [facility] | | | | | [facility] | | | | [facility] | | | | | LABORATORY | | | | | [facility] | + + + --+ + | MCV | 87.5 | 80.0 - 100.0 fL | [facility] | | | | | [facility] | | | [facility] | | | | | LABORATORY | | | | | [facility] | + + + --+ + | MCH | 29.7 | 27.0 - 34.0 pg | [facility] | | | | | [facility] | | | | [facility] | | | | | LABORATORY | | | | | [facility] | + + + --+ + | MCHC | 34.0 | 32.0 - 35.5 g/d L | [facility] | | | | | [facility] | | | | [facility] | | | | | LABORATORY | | | | | [facility] | + + + --+ + | RDW-CV | 15.5 | 11.0 - 15.5 % | [facility] | | | | | [facility] | | | | [facility] | | | | | LABORATORY | | | | | [facility] | + + + --+ + | Platelet Count | 431 (H) | 150 - 400 K/uL | [facility] | | | | | [facility] | | | | [facility] | | | | | LABORATORY | | | | | [facility] | + + + --+ + | MPV | 7.0 (L) | 7.5 - 11.2 fL | [facility] | | | | | [facility] | | | | [facility] | | | | | LAB[facility]ATORY | | | | | [facility] | + + + --+ + | % Neutrophils | 84.4 (H) | 40.0 - 75.0 % | [facility] | | | | | [facility] | | | | [facility] | | | | | LAB[facility]ATORY | | | | | [facility] | + + + --+ + | % Lymphocytes | 12.9 (L) | 15.0 - 48.0 % | [facility] | | | | | [facility] | | | | | [facility] | | | | | LABORATORY | | | | | [facility] | + + + --+ + | % Monocytes | 2.3 | 0.0 - 12.0 % | [facility] | | | | | [facility] | | | | | [facility] | | | | | LABORATORY | | | | | [facility] | + + + --+ + | % Eosinophils | 0.1 | 0.0 - 7.0 % | [facility] | | | | | [facility] | | | | [facility] | | | | | LAB[facility]ATORY | | | | | [facility] | + + + --+ + | % Basophils | 0.3 | 0.0 - 2.0 % | [facility] | | | | | [facility] | | | | [facility] | | | | | LAB[facility]ATORY | | | | | [facility] | + + + --+ + | Absolute Neutrophils | 9.80 (H) | 1.90 - 7.40 K/u L | [facility] | | | | | [facility] | | | | | [facility] | | | | | LABORATORY | | | | | [facility] | + + + --+ + | Absolute Lymphocytes | 1.50 | 1.00 - 3.90 K/u L | [facility] | | | | | [facility] | | | | | [facility] | | | | | LABORATORY | | | | | [facility] | + + + --+ + | Absolute Monocytes | 0.27 | 0.00 - 0.80 K/u L | [facility] | | | | | [facility] | | | | | [facility] | | | | | LAB[facility]ATORY | | | | | [facility] | + + + --+ + | Absolute Eosinophils | 0.01 | 0.00 - 0.50 K/u L | [facility] | | | | | [facility] | | | | | [facility] | | | | | LABORATORY | | | | | [facility] | + + + --+ + | Absolute Basophils | 0.03Comment: Performed | 0.00 - 0.10 K/u L | [facility] | | | by [facility] [address], | | [facility] | | | [place] [address] | | [facility] | | |Performed by [facility] [address], [place] [address] | | LABORATORY | | | | | C[facility] | + + + --+ + + + | Specimen | + + | Blood | + + + + + + + | Performing | Address | City/State/Zipcode | Phone Number | | Organization | | | | + + + + + | [facility] | [address] | [place] [address] | | | [facility] | | | | | LABORATORY [facility] | | | | + + + + + Extra Hold Tube(s) (06/07/2018909) + + + + ---+ | Component | Value | Ref Range | Performed At | + + + + ---+ | Extra Tube | DrawnComment: Performed | | [facility] | | | by [facility] [address], | | [facility] | | | [place], [place] | | [facility] | | |Performed by [facility] [address], [place], [place] | | LABORATORY | | | | | [place] | + + + + ---+ + + | Specimen | + + | Blood | + + + + + + + | Performing | Address | City/State/Zipcode | Phone Number | | Organization | | | | + + + + + | [facility] | [address] | [place], [place] | | | [facility] | | | | | LABORATORY [place] | | | | + + + + + CK Total (06/07/201803) + + + + -----+ | Component | Value | Ref Range | Performed A t | + + + + -----+ | CK TOTAL | 84Comment: Performed by | 30 - 240 U/L | [facility] | | | [facility] [address], | | [facility] | | | [place] [address] | | MEDICAL [address] | | |Performed by [facility] [address] [place] [address] | | LABORATORY | | | | | [facility] | + + + + -----+ + + | Specimen | + + | Blood | + + + + + + + | Performing | Address | City/State/Zipcode | Phone Number | | Organization | | | | + + + + + | [facility] | [address] | [place] [address] | | | [facility] | | | | | LABORATORY [place] | | | | + + + + + Urinalysis with Microscopic with Culture if Indicated (06/07/201803) + + + + + | Component | Value | Ref Range | Performed At | + + + + + | COLOR | Yellow | | [facility] | | | | | [facility] | | | | | [facility]ENTER | | | | | LABORATORY | | | | | [facility] | + + + + + | CLARITY | Hazy | | [facility] | | | | | [facility] | | | | [facility] | | | | | LABORATORY | | | | | [facility] | + + + + + | GLUCOSE UA | Negative | Negative | [facility] | | | | | [facility] | | | | [facility] | | | | | LABORATORY | | | | | [facility] | + + + + + | KETONES UA | Negative | Negative | [facility] | | | | | [facility] | | | | [facility] | | | | | LABORATORY | | | | | [facility] | + + + + + | BILIRUBIN UA | Negative | Negative | [facility] | | | | | [facility] | | | | [facility] | | | | | LABORATORY | | | | | [facility] | + + + + + | UROBILINOGEN UA | <2.0 | <2.0 mg/dL | [facility] | | | | | [facility] | | | | [facility] | | | | | LABORATORY | | | | | [facility] | + + + + + | Specific [place] | 1.020 | 1.001 - 1.030 | [facility] | | | | | [facility] | | | | | [facility] | | | | | LABORATORY | | | | | [facility] | + + + + + | PH UA | 7.0 | 5.0 - 7.5 | [facility] | | | | | [facility] | | | | | [facility] | | | | | LABORATORY | | | | | [facility] | + + + + + | PROTEIN UA | 300 (A) | Negative mg/dL | [facility] | | | | | [facility] | | | | | [facility] | | | | | LABORATORY | | | | | [facility] | + + + + + | NITRITE UA | Negative | Negative | [facility] | | | | | [facility] | | | | | [facility] | | | | | LABORATORY | | | | | [facility] | + + + + + | BLOOD UA | Moderate (A) | Negative | [facility] | | | | | [facility] | | | | [facility] | | | | | LABORATORY | | | | | [facility] | + + + + + | LEUKOCYTES ESTERASE | Trace (A) | Negative | [facility] | | UA | | | [facility] | | | | | [facility] | | | | | LABORATORY | | | | | [facility] | + + + + + | SQUAMOUS EPITHELIAL | Few | | [facility] | | UA | | | [facility] | | | | [facility] | | | | | LABORATORY | | | | | [facility] | + + + + + | WBC UA | 3 | 0 - 5 /hpf | [facility] | | | | | [facility] | | | | | [facility] | | | | | LABORATORY | | | | | [facility] | + + + + + | RBC UA | 10 (H) | 0 - 5 | [facility] | | | | | [facility] | | | | | [facility] | | | | | LABORATORY | | | | | [facility] | + + + + + | BACTERIA UA | Present (A) | | [facility] | | | | | [facility] | | | | | [facility] | | | | | LABORATORY | | | | | [facility] | + + + + + | AMORPHOUS CRYSTALS | None Present | | [facility] | | | | | [facility] | | | | | [facility] | | | | | LABORATORY | | | | | [facility] | + + + + + | MUCUS UA | None PresentComment: | | [facility] | | | Less than 2 mL | | [facility] | | | submitted. Microscopi | | [facility] | | | c done on Unspun | | LABORATORY | | | Specimen. Reference | | [facility] | | | ranges for urine | | | | | microscopic exam apply | | | | | only to 10 mL specimens | | | | | that have been | | | | | centrifuged. Results | | | | | from specimens with less | | | | | than 10 mL, or | | | | | uncentrifuged specimens | | | | | will have decreased | | | | | sensitivity. | | | + + + + + | URINE SOURCE | Clean catchComment: | | [facility] | | | Performed by [facility] [address] | | [facility] | | | [address] [place] | | [facility] | | | [address] | | LABORATORY | | | | | C[facility] | + + + + + + + | Specimen | + + | Urine - Urine, Clean | | Catch | + + + + + + + | Performing | Address | City/State/Zipcode | Phone Number | | Organization | | | | + + + + + | [facility] | [address] | [place] [address] | | | [facility] | | | | | [place] | | | | + + + + + ARRHYTHMIA MONITOR - EXTERNAL SCAN (06/07/2018) + + + | Narrative | Performed At | + + + | Ordered by an | | | unspecified provider. | | + + + in this encounter Visit Diagnoses + + | Diagnosis | + + | ASHD (arteriosclerotic heart disease) - Primary | + + | Coronary atherosclerosis of unspecified type of vessel, [place] or graft | + + | NSTEMI (non-ST elevated myocardial infarction) (HCC) | + + | Acute myocardial infarction, subendocardial infarction, episode of care unspecified | + + | Methamphetamine abuse (HCC) | + + | Nondependent amphetamine or related acting sympathomimetic abuse, unspecified | + + | Opiate abuse, continuous (HCC) | + + | Opioid abuse, continuous | + + | Marijuana abuse | + + | Cannabis abuse, unspecified | + + | Non-intractable cyclical vomiting with nausea | + + | Esophagitis | + + | Esophagitis, unspecified | + + | Chest pain syndrome | + + | Chest pain, unspecified | + + | Essential hypertension | + + | Unspecified essential hypertension | + + | Methamphetamine use (HCC) | + + | Nondependent amphetamine or related acting sympathomimetic abuse, unspecified | + + | Marijuana use | + + | Cannabis abuse, unspecified | + + | Troponin level elevated | + + | Other abnormal blood chemistry | + + | Ischemic cardiomyopathy | + + | Other specified forms of chronic ischemic heart disease | + + | Chronic GERD | + + | Elevated troponin level | + + | Other abnormal blood chemistry | + + | Stress hyperglycemia | + + | Other abnormal blood chemistry | + + | S/P CABG x 3 | + + | Postsurgical aortocoronary bypass status | + + | Polysubstance abuse (HCC) | + + | Other, mixed, or unspecified nondependent drug abuse, unspecified | + + | S/P CABG x 3 | + + | Postsurgical aortocoronary bypass status | + + | Non-intractable vomiting with nausea | + + | Tobacco abuse | + + | Tobacco use disorder | + + Admitting Diagnoses + + | Diagnosis | + + | Marijuana abuse | + + | Cannabis abuse, unspecified | + + | Esophagitis | + + | Esophagitis, unspecified | + + | Methamphetamine abuse (HCC) | + + | Nondependent amphetamine or related acting sympathomimetic abuse, unspecified | + + | NSTEMI (non-ST elevated myocardial infarction) (HCC) | + + | Acute myocardial infarction, subendocardial infarction, episode of care unspecified | + + | Chest pain syndrome | + + | Chest pain, unspecified | + + | Opiate abuse, continuous (HCC) | + + | Opioid abuse, continuous | + + | Non-intractable cyclical vomiting with nausea | + + | NSTEMI | + + | CVD (cardiovascular disease) - CVD (cardiovascular disease) [I25.10] | + + | Unspecified cardiovascular disease | + + Administered Medications + +---------+ +--------+-------+------+ | Medication Order | MAR | Action | Dose | Rate | Site | | | Action | Date | | | | + +---------+ +--------+-------+------+ | acetaminophen (OFIRMEV) IV | New Bag | 06/12/2018 | 650 mg | 260 | | | syringe (10 mg/mL) 650 mg 650 | | 0:28 | | mL/hr | | | mg, Intravenous, Administer over | | PDT | | | | | 15 Minutes, EVERY 6 HOURS PRN, | | | | | | | Mild Pain, Starting [facility] 06/11/18 at | | | | | | | 1742, For 24 hours, Maximum | | | | | | | allowed order duration of 24 | | | | | | | hours per System P&T | | | | | | + +---------+ +--------+-------+------+ +---------+ +--------+-------+---+ | New Bag | 06/12/2018 | 650 mg | 260 | | | | 8:12 | | mL/hr | | | | PDT | | | | +---------+ +--------+-------+---+ | New Bag | 06/12/2018 | 650 mg | 260 | | | | 17:39 | | mL/hr | | | | PDT | | | | +---------+ +--------+-------+---+ +---+---+ | | | +---+---+ + +-------+ +--------+---+---+ | acetaminophen (TYLENOL) tablet | Given | 06/10/2018 | 500 mg | | | | 500 mg 500 mg, Oral, EVERY 6 | | 11:14 | | | | | HOURS PRN, Pain, Starting Sun | | PDT | | | | | 06/07/18 at 1456 | | | | | | + +-------+ +--------+---+---+ +-------+ +--------+---+---+ | Given | 06/10/2018 | 500 mg | | | | | 17:49 | | | | | | PDT | | | | +-------+ +--------+---+---+ | Given | 06/10/2018 | 500 mg | | | | | 23:51 | | | | | | PDT | | | | +-------+ +--------+---+---+ +---+---+ | | | +---+---+ + +-------+ +--------+---+---+ | acetaminophen (TYLENOL) tablet | Given | | 650 mg | | | | 650 mg 650 mg, Oral, EVERY 6 | | 8 3:21 | | | | | HOURS (4 times per day), First | | PDT | | | | | dose on 06/13/18 at 0830 | | | | | | + +-------+ +--------+---+---+ +-------+ +--------+---+---+ | Given | | 650 mg | | | | | 8 8:29 | | | | | | PDT | | | | +-------+ +--------+---+---+ | Given | | 650 mg | | | | | 8 14:20 | | | | | | PDT | | | | +-------+ +--------+---+---+ +---+---+ | | | +---+---+ + +---------+ +--------+-------+---+ | albumin 5% IVPB 12.5 g 12.5 g, | New Bag | 06/11/2018 | 12.5 g | 250 | | | Intravenous, Administer over 1 | | 17:39 | | mL/hr | | | Hours, PRN, see PRN parameter, | | PDT | | | | | Starting [facility] 06/11/18 at 1635, Give | | | | | | | up to 1.5l of 5% Albumin | | | | | | + +---------+ +--------+-------+---+ +---------+ +--------+-------+---+ | New Bag | 06/11/2018 | 12.5 g | 250 | | | | 18:05 | | mL/hr | | | | PDT | | | | +---------+ +--------+-------+---+ | New Bag | 06/12/2018 | 12.5 g | 250 | | | | 5:15 | | mL/hr | | | | PDT | | | | +---------+ +--------+-------+---+ +---+---+ | | | +---+---+ + +-------+ +--------+---+---+ | albuterol 5 mg/mL concentrated | Given | 06/10/2018 | 2.5 mg | | | | nebulizer solution 2.5 mg 2.5 | | 9:29 | | | | | mg, Nebulization, RT Once, Wed | | PDT | | | | | 06/10/18 at 0945, For 1 dose, RT | | | | | | | will administer. | | | | | | + +-------+ +--------+---+---+ +---+---+ | | | +---+---+ + +-------+ +--------+---+---+ | aluminum & magnesium | Given | 06/07/2018 | 45 mLs | | | | hydroxide-simethicone (MAALOX | | 9:08 | | | | | PLUS REGULAR STRENGTH) 200-200-20 | | PDT | | | | | mg/5 [...] | | | ml to make standard mixture. | | | | | | + +-------+ +--------+---+---+ +---+---+ | | | +---+---+ + +-------+ +--------+---+---+ | aluminum & magnesium | Given | | 30 mLs | | | | hydroxide-simethicone (MAALOX | | 8 10:17 | | | | | PLUS REGULAR STRENGTH) 200-200-20 | | PDT | | | | | mg/5 mL suspension 30 mL 30 mL, | | | | | | | Oral, EVERY 4 HOURS PRN, | | | | | | | Indigestion, Starting 06/15/18 | | | | | | | at 1012, Shake well. | | | | | | + +-------+ +--------+---+---+ +-------+ +--------+---+---+ | Given | | 30 mLs | | | | | 8 14:28 | | | | | | PDT | | | | +-------+ +--------+---+---+ +---+---+ | | | +---+---+ + +-------+ +--------+---+---+ | aspirin chewable tablet 324 mg | Given | 06/07/2018 | 324 mg | | | | 324 mg, Oral, ONCE, 06/07/18 | | 12:55 | | | | | at 1140, For 1 dose, chew | | PDT | | | | + +-------+ +--------+---+---+ +---+---+ | | | +---+---+ + +-------+ +--------+---+---+ | aspirin chewable tablet 324 mg | Given | 06/13/2018 | 324 mg | | | | 324 mg, Oral, DAILY, First dose | | 8:40 | | | | | on [facility] 06/11/18 at 1700, If unable | | PDT | | | | | to take po tablet - may give | | | | | | | rectal aspirin, if ordered. | | | | | | + +-------+ +--------+---+---+ +-------+ +--------+---+---+ | Given | 06/14/2018 | 324 mg | | | | | 8:24 | | | | | | PDT | | | | +-------+ +--------+---+---+ | Given | | 324 mg | | | | | 8 8:29 | | | | | | PDT | | | | +-------+ +--------+---+---+ + +---+ | | | + +---+ | aspirin EC tablet 325 mg 325 | | | mg, Oral, DAILY, First dose on | | | 06/16/18 at 0900, Do not cut | | | or crush. | | + +---+ | | | + +---+ + +-------+ +-------+---+---+ | aspirin EC tablet 81 mg 81 mg, | Given | 06/08/2018 | 81 mg | | | | Oral, DAILY, First dose on Mon | | 8:25 | | | | | 06/08/18 at 0900, Do not cut or | | PDT | | | | | crush. | | | | | | + +-------+ +-------+---+---+ +-------+ +-------+---+---+ | Given | 06/09/2018 | 81 mg | | | | | 11:14 | | | | | | PDT | | | | +-------+ +-------+---+---+ +---+---+ | | | +---+---+ + +-------+ +-------+---+---+ | atorvaSTATin (LIPITOR) tablet | Given | 06/08/2018 | 40 mg | | | | 40 mg 40 mg, Oral, NIGHTLY, | | 20:37 | | | | | First dose on 06/08/18 at 2100 | | PDT | | | | + +-------+ +-------+---+---+ +-------+ +-------+---+---+ | Given | 06/09/2018 | 40 mg | | | | | 20:37 | | | | | | PDT | | | | +-------+ +-------+---+---+ | Given | 06/10/2018 | 40 mg | | | | | 20:40 | | | | | | PDT | | | | +-------+ +-------+---+---+ +---+---+ | | | +---+---+ + +-------+ +-------+---+---+ | atorvaSTATin (LIPITOR) tablet | Given | 06/12/2018 | 40 mg | | | | 40 mg 40 mg, Oral, NIGHTLY, | | 20:44 | | | | | First dose on [facility] 06/11/18 at 2100 | | PDT | | | | + +-------+ +-------+---+---+ +-------+ +-------+---+---+ | Given | 06/13/2018 | 40 mg | | | | | 20:41 | | | | | | PDT | | | | +-------+ +-------+---+---+ | Given | 06/14/2018 | 40 mg | | | | | 21:29 | | | | | | PDT | | | | +-------+ +-------+---+---+ +---+---+ | | | +---+---+ + +---------+ +---+ +--------+ | balanced electrolytes in water | New Bag | 06/11/2018 | | 15 mL/hr | Right | | (PLASMALYTE-148/NORMOSOL-R) | | 8:52 | | | Arm | | infusion at 10-100 mL/hr, | | PDT | | | | | Intravenous, CONTINUOUS, Starting | | | | | | | [facility] 06/11/18 at 0830, Please | | | | | | | insert 14 G or 16 G PIV for fluid | | | | | | | administration. TKO. Use this | | | | | | | in preference to NS or LR. | | | | | | + +---------+ +---+ +--------+ +---------+ +---+---+---+ | New Bag | 06/11/2018 | | | | | | 9:34 | | | | | | PDT | | | | +---------+ +---+---+---+ +---+---+ | | | +---+---+ + + + +---+ +---+ | balanced electrolytes in water | Rate/Dos | 06/12/2018 | | 15 mL/hr | | | (PLASMALYTE-148/NORMOSOL-R) | e Verify | 7:00 | | | | | infusion at 15 mL/hr, | | PDT | | | | | Intravenous, CONTINUOUS, Starting | | | | | | | [facility] 06/11/18 at 1700 | | | | | | + + + +---+ +---+ + + +---+ +---+ | Rate/Dose Verify | 06/12/2018 | | 15 mL/hr | | | | 8:00 | | | | | | PDT | | | | + + +---+ +---+ | Rate/Dose Verify | 06/12/2018 | | 15 mL/hr | | | | 9:00 | | | | | | PDT | | | | + + +---+ +---+ +---+---+ | | | +---+---+ + +-------+ + +---+---+ | calcium carbonate (TUMS) | Given | 06/14/2018 | 1,000 mg | | | | chewable tablet 1,000 mg 1,000 | | 12:01 | | | | | mg, Oral, EVERY 4 HOURS PRN, | | PDT | | | | | Indigestion, Heartburn, Starting | | | | | | | 06/14/18 at 1109, 500mg calcium | | | | | | | carbonate = 200mg elemental | | | | | | | calcium | | | | | | + +-------+ + +---+---+ +---+---+ | | | +---+---+ + +-------+ +---------+---+---+ | carvedilol (COREG) tablet 12.5 | Given | 06/09/2018 | 12.5 mg | | | | mg 12.5 mg, Oral, 2 TIMES DAILY | | 11:15 | | | | | WITH BREAKFAST & DINNER, First | | PDT | | | | | dose on 06/08/18 at 1700 | | | | | | + +-------+ +---------+---+---+ +-------+ +---------+---+---+ | Given | 06/09/2018 | 12.5 mg | | | | | 16:42 | | | | | | PDT | | | | +-------+ +---------+---+---+ | Given | 06/10/2018 | 12.5 mg | | | | | 8:18 | | | | | | PDT | | | | +-------+ +---------+---+---+ +---+---+ | | | +---+---+ + +-------+ + +---+---+ | carvedilol (COREG) tablet 3.125 | Given | 06/14/2018 | 3.125 mg | | | | mg 3.125 mg, Oral, 2 TIMES | | 16:29 | | | | | DAILY WITH BREAKFAST & DINNER, | | PDT | | | | | First dose on 06/14/18 at 0815, | | | | | | | HOLD SBP <100 and or HR <60 | | | | | | + +-------+ + +---+---+ +-------+ + +---+---+ | Given | | 3.125 mg | | | | | 8 8:29 | | | | | | PDT | | | | +-------+ + +---+---+ | Given | | 3.125 mg | | | | | 8 16:08 | | | | | | PDT | | | | +-------+ + +---+---+ +---+---+ | | | +---+---+ + +-------+ +---------+---+---+ | carvedilol (COREG) tablet 6.25 | Given | 06/07/2018 | 6.25 mg | | | | mg 6.25 mg, Oral, 2 TIMES DAILY | | 16:13 | | | | | WITH BREAKFAST & DINNER, First | | PDT | | | | | dose on 06/07/18 at 1700 | | | | | | + +-------+ +---------+---+---+ +-------+ +---------+---+---+ | Given | 06/08/2018 | 6.25 mg | | | | | 10:22 | | | | | | PDT | | | | +-------+ +---------+---+---+ +---+---+ | | | +---+---+ + +-------+ +---------+---+---+ | carvedilol (COREG) tablet 6.25 | Given | 06/08/2018 | 6.25 mg | | | | mg 6.25 mg, Oral, ONCE, Mon | | 10:21 | | | | | 06/08/18 at 1030, For 1 dose, Extra | | PDT | | | | | 6.25 mg 06/08/18 AM to make total | | | | | | | 12.5 mg this AM | | | | | | + +-------+ +---------+---+---+ +---+---+ | | | +---+---+ + +-------+ +---------+---+---+ | carvedilol (COREG) tablet 6.25 | Given | 06/12/2018 | 6.25 mg | | | | mg 6.25 mg, Oral, 2 TIMES DAILY | | 12:30 | | | | | WITH BREAKFAST & DINNER, First | | PDT | | | | | dose on 06/12/18 at 1030 | | | | | | + +-------+ +---------+---+---+ +-------+ +---------+---+---+ | Given | 06/12/2018 | 6.25 mg | | | | | 16:07 | | | | | | PDT | | | | +-------+ +---------+---+---+ | Given | 06/13/2018 | 6.25 mg | | | | | 8:40 | | | | | | PDT | | | | +-------+ +---------+---+---+ +---+---+ | | | +---+---+ + +---------+ +-----+ +---+ | ceFAZolin (ANCEF, KEFZOL) 100 | New Bag | 06/11/2018 | 2 g | 40 mL/hr | | | mg/mL IV syringe 2 g 2 g, | | 19:25 | | | | | Intravenous, Administer over 30 | | PDT | | | | | Minutes, [...] +---------+ +-----+ +---+ | New Bag | 06/12/2018 | 2 g | 40 mL/hr | | | | 3:20 | | | | | | PDT | | | | +---------+ +-----+ +---+ +---+---+ | | | +---+---+ + +-------+ +--------+---+---+ | cefdinir (OMNICEF) capsule 300 | Given | 06/09/2018 | 300 mg | | | | mg 300 mg, Oral, 2 TIMES DAILY, | | 20:36 | | | | | First dose on Fri06/09/18 at 0900, | | PDT | | | | | Indications: UTI - Lower | | | | | | + +-------+ +--------+---+---+ +-------+ +--------+---+---+ | Given | 06/10/2018 | 300 mg | | | | | 8:18 | | | | | | PDT | | | | +-------+ +--------+---+---+ | Given | 06/10/2018 | 300 mg | | | | | 20:40 | | | | | | PDT | | | | +-------+ +--------+---+---+ +---+---+ | | | +---+---+ + +---------+ +-----+-------+---+ | cefTRIAXone (ROCEPHIN) 1 g in | New Bag | 06/07/2018 | 1 g | 100 | | | sodium chloride 0.9% 50 mL IVPB | | 19:04 | | mL/hr | | | 1 g, Intravenous, Administer over | | PDT | | | | | 30 Minutes, EVERY 24 HOURS | | | | | | | (Daily), First dose on Fri06/07/18 | | | | | | | at 1900, Activate system and mix | | | | | | | before use. | | | | | | + +---------+ +-----+-------+---+ +---------+ +-----+-------+---+ | New Bag | 06/08/2018 | 1 g | 100 | | | | 8:24 | | mL/hr | | | | PDT | | | | +---------+ +-----+-------+---+ +---+---+ | | | +---+---+ + + + +---------+---------+---+ | clevidipine (CLEVIPREX) 0.5 | Restarte | 06/11/2018 | 2 mg/hr | 4 mL/hr | | | mg/mL infusion 0-32 mg/hr (0-64 | d | 18:17 | | | | | mL/hr), at 0-64 mL/hr, | | PDT | | | | | Intravenous, TITRATED, Starting | | | | | | | [facility] 06/11/18 at 1700, Max dose 1000 | | | | | | | mL (500 mg) in a 24 hour period. | | | | | | + + + +---------+---------+---+ + + +---------+---------+---+ | Rate/Dose Change | 06/11/2018 | 4 mg/hr | 8 mL/hr | | | | 18:22 | | | | | | PDT | | | | + + +---------+---------+---+ | Restarted | 06/11/2018 | 2 mg/hr | 4 mL/hr | | | | 18:43 | | | | | | PDT | | | | + + +---------+---------+---+ +---+---+ | | | +---+---+ + + + + +-------+---+ | dexmedetomidine (PRECEDEX) 4 | Rate/Dos | 06/11/2018 | 0.6 | 9.7 | | | mcg/mL in sodium chloride 0.9% | e Change | 21:00 | mcg/kg/h | mL/hr | | | 100 mL infusion 0.2-1.5 | | PDT | r | | | | mcg/kg/hr | | | | | | | 64.5 kg Adjusted weight | | | | | | | (3.225-24.1875 mL/hr, rounded to | | | | | | | 3.2-24.2 mL/hr), at 3.2-24.2 | | | | | | | mL/hr, Intravenous, TITRATED, | | | | | | | Starting [facility] 06/11/18 at 1715, | | | | | | | Initial dose: 0.4 mcg/kg/hr | | | | | | + + + + +-------+---+ + + + +-------+---+ | Rate/Dose Verify | 06/11/2018 | 0.6 | 9.7 | | | | 22:00 | mcg/kg/h | mL/hr | | | | PDT | r | | | + + + +-------+---+ | Rate/Dose Change | 06/11/2018 | 0.3 | 4.8 | | | | 22:26 | mcg/kg/h | mL/hr | | | | PDT | r | | | + + + +-------+---+ +---+---+ | | | +---+---+ + +-------+ +---------+---+---+ | dipyridamole (PERSANTINE) 5 | Given | 06/09/2018 | 36.2 mg | | | | mg/mL injection Starting e | | 9:20 | | | | | 06/09/18 at 0832, For 1 dose, | | PDT | | | | | Johanna Ngo : | | | | | | | micheal override | | | | | | + +-------+ +---------+---+---+ +---+---+ | | | +---+---+ + +-------+ +--------+---+---+ | docusate sodium (COLACE) | Given | 06/12/2018 | 100 mg | | | | capsule 100 mg 100 mg, Oral, 2 | | 5:00 | | | | | TIMES DAILY PRN, Constipation, | | PDT | | | | | Starting [facility] 06/11/18 at 1635, | | | | | | | First line agent for constipation | | | | | | + +-------+ +--------+---+---+ +-------+ +--------+---+---+ | Given | 06/12/2018 | 100 mg | | | | | 20:44 | | | | | | PDT | | | | +-------+ +--------+---+---+ | Given | | 100 mg | | | | | 8 8:34 | | | | | | PDT | | | | +-------+ +--------+---+---+ +---+---+ | | | +---+---+ + +-------+ +-------+---+---+ | famotidine (PEPCID) injection | Given | 06/07/2018 | 20 mg | | | | 20 mg 20 mg, Intravenous, ONCE, | | 9:09 | | | | | [place] 06/07/18 at 0905, For 1 dose, | | PDT | | | | | Dilute 2 mL of famotidine with 8 | | | | | | | mL of normal saline to a final | | | | | | | concentration of 2 mg/mL. | | | | | | | Administer ordered dose over a | | | | | | | period of at least 2 minutes. | | | | | | + +-------+ +-------+---+---+ +---+---+ | | | +---+---+ + +-------+ +-------+---+---+ | famotidine (PEPCID) tablet 20 | Given | 06/10/2018 | 20 mg | | | | mg 20 mg, Oral, 2 TIMES DAILY, | | 20:40 | | | | | First dose on Fri06/10/18 at 2100, | | PDT | | | | | Pre-op | | | | | | + +-------+ +-------+---+---+ +---+---+ | | | +---+---+ + + + +--------+---------+---+ | fentaNYL in saline 5 mcg/mL | Rate/Dos | 06/12/2018 | 25 | 5 mL/hr | | | infusion 0-250 mcg/hr (0-50 | e Change | 7:00 | mcg/hr | | | | mL/hr), at 0-50 mL/hr, | | PDT | | | | | Intravenous, TITRATED, Starting | | | | | | | [facility] 06/11/18 at 1700, Initial dose: | | | | | | | 0 mcg/hr | | | | | | + + + +--------+---------+---+ + + +--------+---------+---+ | Rate/Dose Verify | 06/12/2018 | 25 | 5 mL/hr | | | | 8:00 | mcg/hr | | | | | PDT | | | | + + +--------+---------+---+ | Rate/Dose Change | 06/12/2018 | 10 | 2 mL/hr | | | | 8:26 | mcg/hr | | | | | PDT | | | | + + +--------+---------+---+ +---+---+ | | | +---+---+ + +-------+ +--------+---+---+ | ferrous sulfate tablet 325 mg | Given | 06/14/2018 | 325 mg | | | | 325 mg, Oral, 2 TIMES DAILY WITH | | 16:29 | | | | | BREAKFAST & DINNER, First dose on | | PDT | | | | | 06/14/18 at 0930 | | | | | | + +-------+ +--------+---+---+ +-------+ +--------+---+---+ | Given | | 325 mg | | | | | 8 8:29 | | | | | | PDT | | | | +-------+ +--------+---+---+ | Given | | 325 mg | | | | | 8 16:08 | | | | | | PDT | | | | +-------+ +--------+---+---+ +---+---+ | | | +---+---+ + +-------+ +-------+---+---+ | furosemide (LASIX) injection 40 | Given | 06/13/2018 | 40 mg | | | | mg 40 mg, Intravenous, DAILY, | | 10:41 | | | | | First dose on 06/13/18 at 1000, | | PDT | | | | | For 2 doses | | | | | | + +-------+ +-------+---+---+ +-------+ +-------+---+---+ | Given | 06/14/2018 | 40 mg | | | | | 8:26 | | | | | | PDT | | | | +-------+ +-------+---+---+ +---+---+ | | | +---+---+ + +-------+ +--------+---+---+ | heparin 1,000 units/mL | Given | 06/10/2018 | 2,000 | | | | injection 2,000-5,000 Units | | 21:18 | Units | | | | 2,000-5,000 Units, Intravenous, | | PDT | | | | | PRN, [...] | | | | | | units. | | | | | | + +-------+ +--------+---+---+ +---+---+ | | | +---+---+ + +-------+ +--------+---+---+ | heparin 1,000 units/mL | Given | 06/10/2018 | 3,900 | | | | injection 2,000-8,000 Units | | 0:55 | Units | | | | 2,000-8,000 Units, Intravenous, | | PDT | | | | | ONCE, [...] | | | | | max 4000 units) | | | | | | + +-------+ +--------+---+---+ +---+---+ | | | +---+---+ + +---------+ + + +---+ | heparin in half-normal saline | New Bag | 06/10/2018 | 800 | 16 mL/hr | | | 50 units/mL infusion 0-3,000 | | 15:23 | Units/hr | | | | Units/hr (0-60 mL/hr), at 0-60 | | PDT | | | | | mL/hr, [...] | | | | | | units. | | | | | | + +---------+ + + +---+ + + + + +---+ | New Bag | 06/10/2018 | 1,050 | 21 mL/hr | | | | 21:19 | Units/hr | | | | | PDT | | | | + + + + +---+ | Rate/Dose Change-Dual Sign | 06/11/2018 | 1,000 | 20 mL/hr | | | | 4:38 | Units/hr | | | | | PDT | | | | + + + + +---+ +---+---+ | | | +---+---+ + +-------+ +-------+---+---+ | hydrOXYzine hydrochloride | Given | 06/10/2018 | 25 mg | | | | (ATARAX) tablet 25 mg 25 mg, | | 11:14 | | | | | Oral, EVERY 6 HOURS PRN, Itching, | | PDT | | | | | Anxiety, Starting 06/08/18 at | | | | | | | 1112 | | | | | | + +-------+ +-------+---+---+ +-------+ +-------+---+---+ | Given | 06/10/2018 | 25 mg | | | | | 17:49 | | | | | | PDT | | | | +-------+ +-------+---+---+ | Given | 06/10/2018 | 25 mg | | | | | 23:51 | | | | | | PDT | | | | +-------+ +-------+---+---+ + +---+ | | | + +---+ | ibuprofen (ADVIL,MOTRIN) tablet | | | 600 mg 600 mg, Oral, EVERY 6 | | | HOURS PRN, Pain, Starting Fri | | | 06/12/18 at 2136, Give with food. | | + +---+ | | | + +---+ + +-------+ +--------+---+---+ | ibuprofen (ADVIL,MOTRIN) tablet | Given | 06/14/2018 | 600 mg | | | | 600 mg 600 mg, Oral, 3 TIMES | | 16:29 | | | | | DAILY WITH MEALS, First dose on | | PDT | | | | | 06/13/18 at 0845, Give with | | | | | | | food. | | | | | | + +-------+ +--------+---+---+ +-------+ +--------+---+---+ | Given | | 600 mg | | | | | 8 8:30 | | | | | | PDT | | | | +-------+ +--------+---+---+ | Given | | 600 mg | | | | | 8 16:08 | | | | | | PDT | | | | +-------+ +--------+---+---+ +---+---+ | | | +---+---+ + +-------+ +---------+---+ + | insulin lispro (humaLOG) 100 | Given | 06/12/2018 | 1 Units | | Abdomen- | | units/mL injection (vial) 0-6 | | 12:30 | | | LLQ | | Units 0-6 Units, Subcutaneous, 5 | | PDT | | | | | TIMES [...] | | | | | NPO, Daytime 5086-7000 Use NIGHT | | | | | | | DOSE for doses scheduled: | | | | | | | HS, 3AM, Nighttime 4060-8547 Only | | | | | | | for use with U-100 insulin | | | | | | | syringe. | | | | | | + +-------+ +---------+---+ + +-------+ +---------+---+ + | Given | 06/13/2018 | 1 Units | | Arm-Left | | | 6:29 | | | Upper | | | PDT | | | | +-------+ +---------+---+ + +---+---+ | | | +---+---+ + + + + +-------+---+ | insulin regular (novoLIN R) 100 | Rate/Dos | 06/12/2018 | 0.4 | 0.4 | | | units in 100 mL NS infusion | e Change | 6:00 | Units/hr | mL/hr | | | (open heart protocol) 0-140.8 | | PDT | | | | | Units/hr [...] | | | | | | administration instructions. | | | | | | + + + + +-------+---+ + + + +-------+---+ | Rate/Dose Verify | 06/12/2018 | 0.4 | 0.4 | | | | 7:00 | Units/hr | mL/hr | | | | PDT | | | | + + + +-------+---+ | Rate/Dose Verify | 06/12/2018 | 0.4 | 0.4 | | | | 8:00 | Units/hr | mL/hr | | | | PDT | | | | + + + +-------+---+ +---+---+ | | | +---+---+ + +-------+ +---------+---+---+ | ipratropium (ATROVENT) 500 | Given | 06/11/2018 | 500 mcg | | | | mcg/2.5 mL nebulizer solution 500 | | 7:18 | | | | | mcg 500 mcg, Nebulization, RT | | PDT | | | | | BID, First dose on [facility] 06/11/18 at | | | | | | | 0900, RT will administer. | | | | | | + +-------+ +---------+---+---+ +---+---+ | | | +---+---+ + +-------+ +-------+---+---+ | isosorbide dinitrate (ISORDIL) | Given | 06/10/2018 | 10 mg | | | | tablet 10 mg 10 mg, Oral, 3 | | 13:55 | | | | | TIMES DAILY NOT ATC, First dose | | PDT | | | | | on Fri06/10/18 at 1400 | | | | | | + +-------+ +-------+---+---+ +-------+ +-------+---+---+ | Given | 06/10/2018 | 10 mg | | | | | 20:40 | | | | | | PDT | | | | +-------+ +-------+---+---+ +---+---+ | | | +---+---+ + +-------+ +-------+---+---+ | ketorolac (TORADOL) injection | Given | 06/12/2018 | 15 mg | | | | 15 mg 15 mg, Intravenous, ONCE, | | 9:50 | | | | | 06/12/18 at 1000, For 1 dose | | PDT | | | | + +-------+ +-------+---+---+ +---+---+ | | | +---+---+ + +-------+ +---------+---+---+ | levalbuterol (XOPENEX) | Given | 06/11/2018 | 1.25 mg | | | | nebulizer solution 1.25 mg 1.25 | | 7:12 | | | | | mg, Nebulization, RT EVERY 4 | | PDT | | | | | HOURS PRN, Wheezing, Starting Wed | | | | | | | 06/10/18 at 2348, Pre-op | | | | | | + +-------+ +---------+---+---+ +---+---+ | | | +---+---+ + +---------+ +---------+---+ + | lidocaine 4 % patch 1 patch 1 | Patch | 06/13/2018 | 1 patch | | Back-Rig | | patch, Transdermal, DAILY, First | Applied | 0:51 | | | ht Upper | | dose on Fri06/12/18 at 2145, Apply | | PDT | | | | | for 12 hours, then remove for 12 | | | | | | | hours. | | | | | | + +---------+ +---------+---+ + +---+---+ | | | +---+---+ + +---------+ +---------+---+ + | lidocaine 4 % patch 1 patch 1 | Patch | 06/13/2018 | 1 patch | | Chest-Le | | patch, Transdermal, DAILY, First | Applied | 9:05 | | | ft | | dose on 06/13/18 at 0900, Apply | | PDT | | | Anterior | | for 12 hours, then remove for 12 | | | | | | | hours. Remove current patch on | | | | | | | shoulder, replace with new lido | | | | | | | patch next to [facility]SI | | | | | | + +---------+ +---------+---+ + + + +---------+---+ + | Patch Applied | 06/14/2018 | 1 patch | | Chest-Le | | | 8:30 | | | ft | | | PDT | | | Anterior | + + +---------+---+ + | Patch Applied | | 1 patch | | Chest-Le | | | 8 8:30 | | | ft | | | PDT | | | Anterior | + + +---------+---+ + +---+---+ | | | +---+---+ + +-------+ +-------+---+---+ | lisinopril (PRINIVIL, ZESTRIL) | Given | 06/07/2018 | 20 mg | | | | tablet 20 mg 20 mg, Oral, DAILY, | | 15:08 | | | | | First dose on 06/07/18 at 1515 | | PDT | | | | + +-------+ +-------+---+---+ +-------+ +-------+---+---+ | Given | 06/08/2018 | 20 mg | | | | | 8:25 | | | | | | PDT | | | | +-------+ +-------+---+---+ +---+---+ | | | +---+---+ + +-------+ +-------+---+---+ | lisinopril (PRINIVIL, ZESTRIL) | Given | 06/08/2018 | 20 mg | | | | tablet 20 mg 20 mg, Oral, 2 | | 20:38 | | | | | TIMES DAILY, First dose on Mon | | PDT | | | | | 06/08/18 at 2100 | | | | | | + +-------+ +-------+---+---+ +-------+ +-------+---+---+ | Given | 06/09/2018 | 20 mg | | | | | 20:36 | | | | | | PDT | | | | +-------+ +-------+---+---+ +---+---+ | | | +---+---+ + +-------+ +------+---+---+ | LORazepam (ATIVAN) 2 mg/mL | Given | 06/07/2018 | 1 mg | | | | injection 1 mg 1 mg, | | 11:06 | | | | | Intravenous, EVERY 30 MIN PRN, | | PDT | | | | | Anxiety, Starting 06/07/18 at | | | | | | | 1058, For 2 doses | | | | | | + +-------+ +------+---+---+ +-------+ +------+---+---+ | Given | 06/07/2018 | 1 mg | | | | | 12:55 | | | | | | PDT | | | | +-------+ +------+---+---+ +---+---+ | | | +---+---+ + +-------+ +------+---+---+ | LORazepam (ATIVAN) tablet 1-2 | Given | 06/14/2018 | 1 mg | | | | mg 1-2 mg, Oral, EVERY 6 HOURS | | 21:29 | | | | | PRN, Anxiety, Starting 06/12/18 | | PDT | | | | | at 1834 | | | | | | + +-------+ +------+---+---+ +-------+ +------+---+---+ | Given | | 1 mg | | | | | 8 3:20 | | | | | | PDT | | | | +-------+ +------+---+---+ | Given | | 1 mg | | | | | 8 19:17 | | | | | | PDT | | | | +-------+ +------+---+---+ +---+---+ | | | +---+---+ + +-------+ +--------+---+---+ | magnesium oxide (MAG-OX) tablet | Given | 06/08/2018 | 400 mg | | | | 400 mg 400 mg, Oral, DAILY, | | 10:20 | | | | | First dose on 06/08/18 at 1030 | | PDT | | | | + +-------+ +--------+---+---+ +-------+ +--------+---+---+ | Given | 06/09/2018 | 400 mg | | | | | 11:14 | | | | | | PDT | | | | +-------+ +--------+---+---+ | Given | 06/10/2018 | 400 mg | | | | | 8:19 | | | | | | PDT | | | | +-------+ +--------+---+---+ +---+---+ | | | +---+---+ + +---------+ +-----+ +---+ | magnesium sulfate 2 g/50 mL | New Bag | 06/08/2018 | 2 g | 25 mL/hr | | | IVPB 2 g 2 g, Intravenous, | | 10:57 | | | | | Administer over 120 Minutes, | | PDT | | | | | ONCE, [facility] 06/08/18 at 1045, For 1 | | | | | | | dose, Maximum recommended | | | | | | | infusion rate = 1 gram/hour. | | | | | | + +---------+ +-----+ +---+ +---+---+ | | | +---+---+ + +---------+ +-----+ +---+ | magnesium sulfate 2 g/50 mL | New Bag | 06/11/2018 | 2 g | 25 mL/hr | | | IVPB 2 g 2 g, Intravenous, | | 17:44 | | | | | Administer over 120 Minutes, | | PDT | | | | | DAILY, First dose on [facility] 06/11/18 | | | | | | | at 1700, For 2 doses, Maximum | | | | | | | recommended infusion rate = 1 | | | | | | | gram/hour. | | | | | | + +---------+ +-----+ +---+ +---------+ +-----+ +---+ | New Bag | 06/12/2018 | 2 g | 25 mL/hr | | | | 8:26 | | | | | | PDT | | | | +---------+ +-----+ +---+ +---+---+ | | | +---+---+ + +-------+ +---------+---+---+ | metoprolol tartrate (LOPRESSOR) | Given | 06/11/2018 | 12.5 mg | | | | tablet 12.5 mg 12.5 mg, Oral, | | 4:15 | | | | | BOX SHOOK PATCHER, Starting [facility] 06/11/18 at | | PDT | | | | | 0414, For 1 dose, Give morning of | | | | | | | heart surgery | | | | | | + +-------+ +---------+---+---+ +---+---+ | | | +---+---+ + +-------+ +-------+---+---+ | metoprolol tartrate (LOPRESSOR) | Given | 06/10/2018 | 25 mg | | | | tablet 25 mg 25 mg, Oral, 2 | | 20:40 | | | | | TIMES DAILY, First dose on Fri | | PDT | | | | | 06/10/18 at 2100 | | | | | | + +-------+ +-------+---+---+ +---+---+ | | | +---+---+ + +-------+ +---+---+---+ | mupirocin (BACTROBAN) 2% | Given | 06/11/2018 | | | | | ointment Both nostrils, 2 TIMES | | 0:47 | | | | | DAILY, First dose on [facility] 06/11/18 | | PDT | | | | | at 0015, For 2 doses, Apply 0.5 | | | | | | | gram to each nare. Give 1st dose | | | | | | | the night before surgery. Give | | | | | | | 2nd dose the day of surgery in | | | | | | | preop area | | | | | | + +-------+ +---+---+---+ +---+---+ | | | +---+---+ + +-------+ +------+---+---+ | ondansetron (ZOFRAN) injection | Given | 06/11/2018 | 4 mg | | | | 4 mg 4 mg, Intravenous, EVERY 6 | | 19:23 | | | | | HOURS PRN, Nausea, Vomiting, | | PDT | | | | | Starting [facility] 06/11/18 at 1635, | | | | | | | First line agent Use PO option | | | | | | | unless NPO status or unable to | | | | | | | tolerate. | | | | | | + +-------+ +------+---+---+ +---+---+ | | | +---+---+ + +-------+ +------+---+---+ | ondansetron (ZOFRAN) injection | Given | 06/07/2018 | 8 mg | | | | 8 mg 8 mg, Intravenous, ONCE, | | 9:09 | | | | | [place] 06/07/18 at 0905, For 1 dose | | PDT | | | | + +-------+ +------+---+---+ +---+---+ | | | +---+---+ + +-------+ +------+---+---+ | ondansetron (ZOFRAN) injection | Given | 06/07/2018 | 8 mg | | | | 8 mg 8 mg, Intravenous, EVERY 4 | | 13:53 | | | | | HOURS PRN, Nausea, Vomiting, | | PDT | | | | | Starting 06/07/18 at 1303 | | | | | | + +-------+ +------+---+---+ +---+---+ | | | +---+---+ + +-------+ +-------+---+---+ | oxyCODONE (oxyCONTIN) ER | Given | 06/14/2018 | 20 mg | | | | abuse-deterrent tablet 20 mg 20 | | 21:29 | | | | | mg, Oral, EVERY 12 HOURS (2 times | | PDT | | | | | per day), First dose on Fri | | | | | | | 06/12/18 at 1000, Do not cut or | | | | | | | crush. | | | | | | + +-------+ +-------+---+---+ +-------+ +-------+---+---+ | Given | | 20 mg | | | | | 8 8:29 | | | | | | PDT | | | | +-------+ +-------+---+---+ | Given | | 20 mg | | | | | 8 19:17 | | | | | | PDT | | | | +-------+ +-------+---+---+ +---+---+ | | | +---+---+ + +-------+ +-------+---+---+ | oxyCODONE (ROXICODONE) tablet | Given | 06/12/2018 | 10 mg | | | | 5-10 mg 5-10 mg, Oral, EVERY 3 | | 4:00 | | | | | HOURS PRN, Pain, Starting [facility] | | PDT | | | | | 06/11/18 [...] | | | | | | Sedation Scale. | | | | | | + +-------+ +-------+---+---+ +-------+ +-------+---+---+ | Given | 06/12/2018 | 10 mg | | | | | 7:06 | | | | | | PDT | | | | +-------+ +-------+---+---+ +---+---+ | | | +---+---+ + +-------+ +-------+---+---+ | oxyCODONE (ROXICODONE) tablet | Given | 06/14/2018 | 15 mg | | | | 5-15 mg 5-15 mg, Oral, EVERY 3 | | 19:51 | | | | | HOURS PRN, Pain, Starting Fri | | PDT | | | | | 06/12/18 [...] | | | | | | Sedation Scale. | | | | | | + +-------+ +-------+---+---+ +-------+ +-------+---+---+ | Given | 06/14/2018 | 15 mg | | | | | 23:50 | | | | | | PDT | | | | +-------+ +-------+---+---+ | Given | | 15 mg | | | | | 8 3:21 | | | | | | PDT | | | | +-------+ +-------+---+---+ +---+---+ | | | +---+---+ + +-------+ +-------+---+---+ | pantoprazole (PROTONIX) DR | Given | 06/09/2018 | 40 mg | | | | tablet 40 mg 40 mg, Oral, DAILY | | 11:13 | | | | | BEFORE BREAKFAST, First dose on | | PDT | | | | | 06/09/18 at 0730, Do not cut or | | | | | | | crush. | | | | | | + +-------+ +-------+---+---+ +-------+ +-------+---+---+ | Given | 06/10/2018 | 40 mg | | | | | 6:41 | | | | | | PDT | | | | +-------+ +-------+---+---+ +---+---+ | | | +---+---+ + +-------+ +-------+---+---+ | pantoprazole (PROTONIX) DR | Given | | 40 mg | | | | tablet 40 mg 40 mg, Oral, DAILY | | 8 10:45 | | | | | BEFORE BREAKFAST, First dose on | | PDT | | | | | 06/15/18 at 1030, Do not cut | | | | | | | or crush. | | | | | | + +-------+ +-------+---+---+ +---+---+ | | | +---+---+ + +-------+ +-------+---+---+ | pantoprazole (PROTONIX) | Given | 06/07/2018 | 40 mg | | | | injection 40 mg 40 mg, | | 13:53 | | | | | Intravenous, 2 TIMES DAILY, First | | PDT | | | | | dose on 06/07/18 at 1305, If | | | | | | | reconstituting, mix each 40 mg | | | | | | | vial with 10 mL NS to make 4 | | | | | | | mg/mL. | | | | | | + +-------+ +-------+---+---+ +-------+ +-------+---+---+ | Given | 06/07/2018 | 40 mg | | | | | 20:38 | | | | | | PDT | | | | +-------+ +-------+---+---+ | Given | 06/08/2018 | 40 mg | | | | | 8:25 | | | | | | PDT | | | | +-------+ +-------+---+---+ +---+---+ | | | +---+---+ + + + +---------+ +---+ | phenylephrine (HADLEY-SYNEPHRINE) | Rate/Dos | 06/12/2018 | 30 | 18 mL/hr | | | 100 mcg/mL in 500 mL NS infusion | e Change | 7:00 | mcg/min | | | | 0-100 mcg/min (0-60 mL/hr), at | | PDT | | | | | 0-60 mL/hr, Intravenous, | | | | | | | TITRATED, Starting Marycarmen 06/11/18 at | | | | | | | 1700, Initial dose: 100 mcg/min | | | | | | + + + +---------+ +---+ + + +---------+ +---+ | Rate/Dose Change | 06/12/2018 | 20 | 12 mL/hr | | | | 8:00 | mcg/min | | | | | PDT | | | | + + +---------+ +---+ | Rate/Dose Change | 06/12/2018 | 10 | 6 mL/hr | | | | 8:26 | mcg/min | | | | | PDT | | | | + + +---------+ +---+ +---+---+ | | | +---+---+ + +-------+ +--------+---+---+ | potassium chloride (Klor-Con | Given | 06/08/2018 | 40 mEq | | | | M20) ER tablet 40 mEq 40 mEq, | | 10:20 | | | | | Oral, ONCE, 06/08/18 at 1030, | | PDT | | | | | For 1 dose | | | | | | + +-------+ +--------+---+---+ +---+---+ | | | +---+---+ + +---------+ +--------+ +---+ | potassium chloride 20 mEq in | New Bag | 06/11/2018 | 20 mEq | 50 mL/hr | | | sterile water 50 mL IVPB 20 mEq, | | 20:49 | | | | | Intravenous, Administer over 1 | | PDT | | | | | Hours, PRN, Per protocol, | | | | | | | Starting [facility] 06/11/18 at 1636, | | | | [...] | | | | | | | protocol. | | | | | | + +---------+ +--------+ +---+ +---------+ +--------+ +---+ | New Bag | 06/11/2018 | 20 mEq | 50 mL/hr | | | | 22:20 | | | | | | PDT | | | | +---------+ +--------+ +---+ +---+---+ | | | +---+---+ + +-------+ +---------+---+---+ | probiotic formula capsule 1 | Given | 06/09/2018 | 1 | | | | capsule 1 capsule, Oral, 2 TIMES | | 16:42 | capsule | | | | DAILY WITH BREAKFAST & DINNER, | | PDT | | | | | First [...] | | | | | | | crush. | | | | | | + +-------+ +---------+---+---+ +-------+ +---------+---+---+ | Given | 06/10/2018 | 1 | | | | | 8:18 | capsule | | | | | PDT | | | | +-------+ +---------+---+---+ | Given | 06/10/2018 | 1 | | | | | 16:23 | capsule | | | | | PDT | | | | +-------+ +---------+---+---+ +---+---+ | | | +---+---+ + +-------+ +---------+---+---+ | promethazine (PHENERGAN) (IV | Given | 06/07/2018 | 12.5 mg | | | | ONLY) injection 12.5 mg 12.5 mg, | | 11:06 | | | | | Intravenous, ONCE, 06/07/18 at | | PDT | | | | | 0905, For 1 dose, Mix in 100 ml | | | | | | | ns and run ivpb | | | | | | + +-------+ +---------+---+---+ +---+---+ | | | +---+---+ + + + + +-------+---+ | propofol infusion (DIPRIVAN) 10 | Rate/Dos | 06/11/2018 | 20 | 7.9 | | | mg/mL infusion 0-70 mcg/kg/min | e Change | 18:48 | mcg/kg/m | mL/hr | | | | | PDT | in | | | | 65.5 kg (0-27.51 mL/hr, rounded | | | | | | | to 0-27.5 mL/hr), at 0-27.5 | | | | | | | mL/hr, Intravenous, TITRATED, | | | | | | | Starting [facility] 06/11/18 at 1700, PLUS | | | [...] | | | | | | after spiked. | | | | | | + + + + +-------+---+ + + + +-------+---+ | Rate/Dose Verify | 06/11/2018 | 20 | 7.9 | | | | 20:00 | mcg/kg/m | mL/hr | | | | PDT | in | | | + + + +-------+---+ | Rate/Dose Change | 06/11/2018 | 10 | 3.9 | | | | 20:25 | mcg/kg/m | mL/hr | | | | PDT | in | | | + + + +-------+---+ +---+---+ | | | +---+---+ + +-------+ +--------+---+---+ | senna (SENOKOT) tablet 8.6 mg | Given | 06/12/2018 | 8.6 mg | | | | 8.6 mg, Oral, 2 TIMES DAILY PRN, | | 4:59 | | | | | Constipation, Starting [facility] 06/11/18 | | PDT | | | | | at 1635, If docusate ineffective | | | | | | | or not ordered | | | | | | + +-------+ +--------+---+---+ +-------+ +--------+---+---+ | Given | 06/12/2018 | 8.6 mg | | | | | 20:44 | | | | | | PDT | | | | +-------+ +--------+---+---+ | Given | | 8.6 mg | | | | | 8 8:34 | | | | | | PDT | | | | +-------+ +--------+---+---+ +---+---+ | | | +---+---+ + +---------+ +--------+-------+---+ | sodium chloride 0.9% (NS) bolus | New Bag | 06/07/2018 | 1,000 | 1000 | | | 1,000 mL 1,000 mL, Intravenous, | | 9:08 | mLs | mL/hr | | | Administer over 1 Hours, ONCE, | | PDT | | | | | 06/07/18 at 0905, For 1 dose | | | | | | + +---------+ +--------+-------+---+ +---+---+ | | | +---+---+ + +---------+ +---------+-------+---+ | sodium chloride 0.9% (NS) bolus | New Bag | 06/09/2018 | 196 mLs | 65.3 | | | 196 mL 196 mL (rounded from | | 15:05 | | mL/hr | | | 196.2 mL = 3 mL/kg | | PDT | | | | | 65.4 kg), Intravenous, | | | | | | | Administer over 3 Hours, ONCE, | | | | | | | 06/09/18 at 1400, For 1 dose, 1 | | | | | | | ml/kg/hr x 3 hours | | | | | | + +---------+ +---------+-------+---+ +---+---+ | | | +---+---+ + +---------+ +---+-------+---+ | sodium chloride 0.9% (NS) | New Bag | 06/07/2018 | | 100 | | | infusion at 100 mL/hr, | | 16:10 | | mL/hr | | | Intravenous, CONTINUOUS, Starting | | PDT | | | | | 06/07/18 at 1515 | | | | | | + +---------+ +---+-------+---+ +---------+ +---+-------+---+ | New Bag | 06/08/2018 | | 100 | | | | 5:42 | | mL/hr | | | | PDT | | | | +---------+ +---+-------+---+ +---+---+ | | | +---+---+ + +-------+ +-----+---+---+ | sucralfate (CARAFATE) tablet 2 | Given | 06/07/2018 | 2 g | | | | g 2 g, Oral, ONCE, 06/07/18 at | | 9:08 | | | | | 0905, For 1 dose, DISSOLVE IN 30 | | PDT | | | | | ML WATER After nausea controlled | | | | | | + +-------+ +-----+---+---+ +---+---+ | | | +---+---+ + +-------+ + +---+---+ | technetium TC-99M sestamibi | Given | 06/09/2018 | 23.1 | | | | (CARDIOLITE) injection 23.1 | | 9:28 | millicur | | | | millicurie 23.1 millicurie, | | PDT | ies | | | | Intravenous, ONCE PRN, Other, | | | | | | | Starting 06/09/18 at 0915, For | | | | | | | 1 dose, Nuclear Medicine | | | | | | + +-------+ + +---+---+ +---+---+ | | | +---+---+ + +-------+ + +---+---+ | technetium TC-99M sestamibi | Given | 06/09/2018 | 7.6 | | | | (CARDIOLITE) injection 7.6 | | 8:29 | millicur | | | | millicurie 7.6 millicurie, | | PDT | ies | | | | Intravenous, ONCE PRN, Other, | | | | | | | Starting [facility] 06/09/18 at 0829, For | | | | | | | 1 dose, Nuclear Medicine | | | | | | + +-------+ + +---+---+ +---+---+ | | | +---+---+ + +---------+ +-----+--------+---+ | vancomycin 1 g in sodium | New Bag | 06/11/2018 | 1 g | 166.7 | | | chloride 0.9% 250 mL IVPB 1 g, | | 22:26 | | mL/hr | | | Intravenous, Administer over 90 | | PDT | | | | | Minutes, EVERY 12 HOURS INTERVAL, | | | | | | | First dose on [facility] 06/11/18 at | | | | | | | 2300, For 1 dose, Activate system | | | | | | | and mix before use. | | | | | | + +---------+ +-----+--------+---+ +---+---+ | | | +---+---+ in this encounter
--- OUTSIDE RECORDS SUMMARY | ~2018-07-05 | XMS | Encounter Summary ---
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
--- OUTSIDE RECORDS SUMMARY | ~2018-07-05 | XMS | Encounter Summary ---
Demographics + + + | Address | [address] | | | [place] [address] | + + + | Home Phone [...] + + + | Author | [facility] | | | and Ankitana | + + + | Organization | [facility] | | [...] Team Providers + +------+ + | Care Seating Captain Name | Role | Phone | + [...] | [facility] | MD Kenneth [address] | [facility] | | | | OP [address] | [address] | [place] | | | | [place] | [place] | | | | | [address] | [address] | | | | | [phone] | [phone] | | | | | | | [...] | Body Mass Index | 24.05 | 06/14/2018 2000 PDT | + + + + in [...] Discharge Summaries Suresh Segovia RN - 06/15/2018 5765 PDTSALVATORE Greco saw the patient this 06/15/18 and c onfirmed discharge at 1200. ELÍAS Prince and ELÍAS Brown completed the discharge instructions. Th e patient will be getting their new RXs filled at home preferred pharmacy. Unable to fill pr escriptions before pharmacy closed. Pharmacist notified and gave patient number for [facility] to transfer medications in AM. Given night time pain medications prior to leaving. T he AVS was reviewed with patient and family with no pending questions or concerns. All belon gings were collected from the room and sent with the family. The pt is discharging home with family in [place]. New FWW sent with patient. No further questions and all teaching demonstr ated back to RN. Plan for d/c at 1800 when family arrives. Juancho Greco ARNP - 06/15/2018 1201 PDTFormatting of this note may be different from the original. [facility] Discharge Summary [...] precauti ons. She was recently released from skilled nursing before arriving at the ER and our social secretary has confirmed that she is free to [...] and occupational therapy for post-op rehab. - [facility]. Disposition: Home with family. Patient was advised to call our office or their bpm solution architect with any questions. Follow-Up: Follow-up Information SALVATORE Ventura. Go on 06/23/2018. Specialty: Nurse Practitioner Why: Hospital follow up scheduled at 11:[address] Roa Contact information: [address] [facility] [address] Hemanth Webster MD. Schedule an appointment as soon as possible for a visit on 06/29/2018 . Specialty: Cardiothoracic Surgery Why: 11:30 AM Contact information: [address], [place] [address] [facility] [address] Schedule an appointment as soon as possible for a visit with [facility] [place] [facility]. Why: Please call to schedule your 1 month follow-up with cardiology. Contact information: [address] [place] [address] [facility] [address] Time spent on discharge planning: greater than 30 minutes CABG Checklist ACEI/ARB/ARNI prescribed: No - Hypotension Aspirin prescribed: Not addressed Beta mateus (evidence-based) prescribed: Yes Beta mateus prescribed: N/A - LV EF is less than 41% High intensity statin prescribed: Yes Referral to cardiac rehab: Yes Tobacco cessation counseling provided: Yes [facility] [address], [address] [place] [address] Portions of this chart may have been created with [employer] voice recognition software. Occasi onal wrong-word or [...] feeling more short of breath, please call [facility] at [phone]. 2. For problems or concerns with your incision or your chest, please call [facility]) at [phone]. After Coronary Artery Bypass Surgery When you [...] by medication, call your healthcare pr fuad. 4811-7616 [facility], [address] [place] [address]. All rights reserve d. This information is [...] | | | | | | infarction) (HCC), | | | | | | | Polysubstance abuse | | | | | | | ([facility]) | | | | | | [...] as of this encounter Progress Notes Sherrie Sultana, TYPEWRITER REPAIRER - 06/15/2018 1314 PDTSOCIAL WORK PLAN: Discharge with friend INTERVENTION: MD order to verify pt's disposition at discharge acknowledged. SW met with pt at bedside. Pt states she was brought to [facility] by [facility] but states she is no l onger in custody. No guards at the door. SW [place] suggested SW contact skilled nursing to confirm. SW spoke with [facility] who confirms pt was released. SW spoke with pt regarding discharge plan. Pt plans to discharge to friend's home. SW available should further discharg e planning needs arise. Keith Harp MD - 06/15/2018 0861 PDTFormatting of this note may be different fro m the original. [facility] PATIENT NAME: Smitha Fletcher : 1955: AGE: [...] dilol. 2. Follow-up requested. Keith Harp MD, [facility] Portions of this chart were created with [employer] voice recognition software. Occasional wro ng-word or "sound-alike" substitutions may have occurred due to the inherent limitations of voice recognition software. Please read the chart carefully and recognize, using context, w here those substitutions have occurred.Deonte Lee MD - 06/15/2018 0715 PDTFormattin g of this note may be different from the original. [facility] Pt. Name/Age/: Smitha Boggs Chance 62 y.o. 1955 Med. Record Number: [id number] Date of admission: 06/07/2018 POD # 4 Procedure: CABG X 3 Surgeon: Eleanor Subjective New complaints: poor sternal precautions. No c/o this morning. Acknowledges that came from [facility]. Not sure where she is going. [...] signed by: Hector Decker PA-C Cardiothoracic Surgery [facility] [address], [address] [place] [address] 06/15/2018 7:15 [facility] Agree with detailed plan nicely outlined by Ashley Hamilton, TYPEWRITER REPAIRER - 06/14/2018 1305 PDTSOCIAL WORK PLAN: TBD INTERVENTION: SW acknowledged order for return to skilled nursing. Pt came from skilled nursing per chart review and may have to go back there upon DC. SW will continue to follow for DC planning. Frandy Squires ARNP - 06/14/2018 0911 PDTBlood Glucose log reviewed. Patient is stabl e, with controlled blood glucose. Not requiring insulin Diabetes Service will sign off. Medication Reconciliation for diabetes medications has been completed. Please contact us at [phone] should the need arise. Thank you for [...] signed by: Rip Yao M.D. CardioThoracic Surgery [facility] 06/14/2018 9:23 [facility] Pt. Name/Age/: Smitha Fletcher 62 y.o. 1955 Med. Record Number: [id number] Date of admission: 06/07/2018 POD # 3 [...] the patient is going. Willl have social secretary start arrangements. Problem List Patient Active Problem [...] signed by: Hector Decker PA-C Cardiothoracic Surgery [facility] [address], [address] [place] [address] 06/14/2018 8:59 [facility] Dave Bansal MD - 06/14/2018 0807 PDTFormatting of this note may be different from the original. [facility] PATIENT NAME: Smitha Fletcher : 1955: AGE: [...] Portions of this chart were created with [employer] voice recognition software. Occasional wro ng-word or "sound-alike" substitutions may have occurred due to the inherent limitations of voice recognition software. Please read the chart carefully and recognize, using context, w here those substitutions have occurred.Frandy Squires, SENIOR ASSET MANAGER - 06/13/2018 1437 PDTFormat ting of this [...] Per RN; she will be discharging from [facility] to skilled nursing that she came from. Assessment for glucose [...] displayed. Recent Labs Lab 06/13/18 0402 06/12/18 03106/11/18 2301 06/11/18 1958 06/11/18 1637 06/11/18 1636 [...] Labs Lab 06/11/18 1637 06/11/18 1456 06/11/18 03106/10/18 1722 INR 1.2* 1.4* 1.0 0.9 No [...] by: SALVATORE Elias 06/13/2018 14:53 Diabetes team, [facility] [phone] Dave Bansal MD - 06/13/2018 1027 PDTFormatting of this note may be different from the original. [facility] PATIENT NAME: Smitha Fletcher : 1955: AGE: [...] 4. No pneumothorax. Signed by: MD Won, P vanessa Sign Date/Time: 06/13/2018 6:46 AM Xr Chest [...] Portions of this chart were created with [employer] voice recognition software. Occasional wro ng-word or [...] signed by: Rip Yao M.D. CardioThoracic Surgery [facility] 06/13/2018 9:35 [facility] Pt. Name/Age/: Smitha Fletcher 62 y.o. 1955 Med. Record Number: [id number] Date of admission: 06/07/2018 POD #2 Procedure: [...] signed by: Hector Decker PA-C Cardiothoracic Surgery [facility] [address] [place] [address] 06/13/2018 8:11 [facility] RayolloydKezia RN - 06/12/2018 1510 PDTPt a/o. Has [...] intact. Pt tolerated well. Plan transfer to floor.ShirleyYecenia, [facility] - 06/12/2018 1220 PDTSOCI AL WORK D/C PLAN: TBD INTERVENTION: Sw following for discharge planning. NEXT STEPS: Follow progress and therapy recommendations for discharge planning. ASSESSMENT/CHART REVIEW: Pt resides in [place]. She has Medicare coverage. COPD, is risk for readmission. If pt d oes not need placement she may benefit from home health post acute care. D/C TRANSPORT: TBD BARRIERS TO D/C: Medical stability CONTACTS: Hanna Navdeep: [phone] Bansal MD - 06/12/2018 1135 PDTFormatting of this note may be different from the original. [facility] PATIENT NAME: Smitha Fletcher : 1955: AGE: [...] 1.0 0.4 - 1.5 % Comment PS8 XPD832 O2 Content, Arterial 15.7 15.0 - 23.0 [...] 22:29 Result Value Ref Range Product Code B5652F05 UNIT # [id number] UNIT ABO O UNIT RH NEG CROSSMATCH INTERP Compatible Unit Status XM Blood Product Expiration Date and Time 157530692674 Product Blood Type Barcode 9500 Product Code H4565C64 UNIT # [id number] UNIT ABO O UNIT RH NEG CROSSMATCH INTERP Compatible Unit Status IS Blood Product Expiration Date and Time 559258788478 Product Blood Type Barcode 9500 Blood Gas, [...] 6:53 Result Value Ref Range Product Code R2609S22 UNIT # [id number] UNIT ABO O UNIT RH NEG CROSSMATCH INTERP Compatible Unit Status XM Blood Product Expiration Date and Time 705918119287 Product Blood Type Barcode 9500 POC Glucose [...] may b e different from the original. [facility] Hemanth Webster [...] lifestyle inc luding no tobacco, drugs. Starr Ray RN - 06/11/2018 1540 PDTPatient admitted to [...] ELÍAS Agosto Jordan N, RN - 06/11/2018 0839 PDTPt was sent to [facility] for [facility] [...] need for second PIV at this t adanKathie Diaz MD - 06/10/2018 1700 PDTFormatting of this note may be different from the original. Patient: Smitha Fletcher Date of : 1955 Admit Date: 06/07/2018 Date of Service: 06/10/2018 PCP: SALVATORE Ventura Hospital Day: 1 Hospital Course: This is a 62 y.o.femalewith hx substance abuse, AL and stent [place] [address] Brittnee Sandoval cardiology. She was brought from skilled nursing, complaining of severe 8-9/10 burning chest pain [...] Signs 06/08 700 - 06/09 0659 06/09 700 - 06/10 0659 06/10 700 - 06/10 1700 Most Rec ent Temp [...] - Single Lumen 06/10/18 1446 Right Forearm spzy-red-qnfgqz catheter sys tem 22 gauge;1 in length [...] - 99 mg/dL Final Comment: Performed by [facility] [address] [place] [address] All pertinent labs and imaging have been [...] this chart may have been created with [employer] voice recognition software. Occasi onal wrong-word or [...] TTE 06/08/18 showed LVEF of 45% with rdrqfjwx-lo-tqdflc hypokinesis of lateral and inferio r castillo. [...] female with a pmhx of polysubstance abuse, CAD/AL s/p stent (2011), ischemic EFrEF (LVEF of 45%), HTN, bipolar disorder, nicotine dependence and incarce ration that presented from skilled nursing with severe left sided chest pain that [...] educationa l purposes. Please refer to attending/resident/physician producer assistant/nurse practitioner note r egarding further patient care. Geno Carver, CHELSEA - 06/10/2018 0904 PDTAssessed for Pulmonary Rehab. Pt does not [...] TTE on 018 revealed LVEF = 45%, owvmvzzz-fn-mvyprm hypokinesis of lateral and inferior castillo, julian [...] Complaint: Chest pain Hospital Course: 62F PMH CAD/AL s/p stent (2011), ischemic HFrEF (LVEF = 45%), HTN, polysubstance abuse (met hamphetamine & marijuana), HCV, bipolar disorder, nicotine dependence and incarceration pres ented from skilled nursing w/ severe, burning, substernal chest pain w/ radiation to left shoulder and associated nausea and vomiting. Workup in ED revealed troponin elevation (peak 0.311 this admission) and patient was admitt ed for further workup and management w/ cardiology. Labs in ED also revealed UDS positive fo r amphetamine, methamphetamine, benzodiazepines and opiates. TTE revealed LVEF = 45%, jikddfim-ob-hkqgqx hypokinesis of lateral and inferior castillo, mitr [...] attestation - Shad Schuler MD - 06/10/2018 1731 PDTDuring the visit, I per sonally interviewed [...] PFTs Hepatitis panel not back yet CABG tomorrowFrienKathie jeffries MD - 06/09/2018 1732 PDTFormatting of this note may be dif ferent from the original. Patient: Smitha Fletcher Date of : 1955 Admit Date: 06/07/2018 Date of Service: 06/09/2018 PCP: Yolanda Lee [facility] Day: 0 Hospital Course: This is a 62 y.o.femalewith hx substance abuse, AL and stent placement in [address] Sandoval cardiology. She was brought from skilled nursing, complaining of severe 8-9/10 burning chest pain [...] hypokinesis present but the patient has has AL's in the past . Mild LVH. Stress [...] Single Lumen 06/09/18 0836 Left Distal Forearm hzlb-jdk-wtohht cathet er system 20 gauge;1 1/4 in [...] this chart may have been created with [employer] voice recognition software. Occasi onal wrong-word or [...] as written by the resident provider, an jesús discussed the patient. I agree with the [...] TTE on 018 revealed LVEF = 45%, yzjtxkrq-pw-jddgng hypokinesis of lateral and inferior castillo, julian [...] Complaint: Chest pain Hospital Course: 62F PMH CAD/AL s/p stent (2011), ischemic HFrEF (LVEF = 45%), HTN, polysubstance abuse (met hamphetamine & marijuana), HCV, bipolar disorder, nicotine dependence and incarceration pres ented from skilled nursing w/ severe, burning, substernal chest pain w/ radiation to left shoulder and associated nausea and vomiting. Workup in ED revealed troponin elevation (peak 0.311 this admission) and patient was admitt ed for further workup and management w/ cardiology. Labs in ED also revealed UDS positive fo r amphetamine, methamphetamine, benzodiazepines and opiates. TTE revealed LVEF = 45%, brutrjis-ut-jzhqfa hypokinesis of lateral and inferior castillo, mitr [...] as written by the resident provider, an jesús discussed the patient. I agree with the [...] Date of Service: 06/08/2018 PCP: Yolanda Lee [facility] Day: 0 Hospital Course: This is a 62 y.o. female with hx substance abuse, AL and stent [place] [address] Riya banuelos cardiology. She was brought from skilled nursing, complaining on sever -06/15 burning chest pain [...] hypokinesis present but the patient has has AL's in the past . Mild LVH. Stress [...] Signs 06/06 700 - 06/07 0659 06/07 700 - 06/08 0659 06/08 700 - 06/08 [...] 06/07/18 1545 Right Anterior (palmar);Medial Forearm ove h-jmo-hcohjp catheter system 20 gauge;other (see comments) 1 [...] this chart may have been created with [employer] voice recognition software. Occasi onal wrong-word or [...] Portions of this chart were created with [employer] voice recognition software. Occasional wro ng-word or "sound-alike" substitutions may have occurred due to the inherent limitations of voice recognition software. Please read the chart carefully and recognize, using context, w here those substitutions have occurred.Rhiannon Marcus RN - 06/07/2018 1509 [id number] ed to floor. Somunlent. Asking very [...] Visit | | [facility] [address] | | | | | | [address] [place], | | | | | | [place] [address] | | | | | | [phone] | | | | | | | [...] | | + +--------+ + + | [facility] | Routin | NSTEMI (non-ST | Ordered: 06/15/2018 | | | e | elevated myocardial | | | | | infarction) (HCC) | | + +--------+ + + | [...] for this | | | e | 9 PDT | | procedure are in the [...] for this | | | e | 1852 PDT | | procedure are in the [...] Results for this | | | | 09 PDT | | procedure are in the [...] Results for this | | | | 2050 PDT | | procedure are in the [...] | [facility] | | | Performed by [facility] [address] | | [facility] | | | [address] [place] | | MEDICAL CENTER | | | [address] | | LABORATORY | | | | | [place] | + + + + + + + | Specimen | + + | Blood | + + + + + + + | Performing | Address | City/State/Zipcode | Phone Number | | Organization | | | | + + + + + | [facility] | [address] | [place] [address] | | | [facility] | | | | | [...] 38 (L)Comment: eGFR<60 | >=90 mL/min/1.73m2 | [facility] | | | consistent with impaired | | [facility] | | | kidney | | [place] | | | function.Performed by | | LABORATORY | | | [facility] [address], | | [place] | | | [place] [address] | | | + + + + + + + | Specimen | + + | Blood | + + + + + + + | Performing | Address | City/State/Zipcode | Phone Number | | Organization | | | | + + + + + | [facility] | [address] | [place] [address] | | | [facility] | | | | | [...] Won, Arabella Sign | | | Date/Time: 06/15/2018 6:31 [...] Red Blood Cells (PRBC) - Crossmatch (06/15/2018 035) + + + + + | Component | Value | Ref Range | Performed At | + + + + + | Product Code | [id number] | | [facility] | | | | | [place] | | | | | [facility] | | | | [facility] | + + + + + | UNIT # | [id number] | | [facility] | | | | | [place] | | | | | [facility] | | | | [facility] | + + + + + | UNIT ABO | O | | [facility] | | | | | [place] | | | | | [facility] | | | | [facility] | + + + + + | UNIT RH | NEG | | [facility] | | | | | [place] | | | | | [facility] | | | | [facility] | + + + + + | CROSSMATCH INTERP | Compatible | | [facility] | | | | | [place] | | | | | [facility] | | | | | [facility] | + + + + + | Unit Status | RE | | [facility] | | | | | [place] | | | | | [facility] | | | | [facility] | + + + + + | Blood Product | [id number] | | [facility] | | Expiration Date and | | | [place] | | Time | | | [facility] | | | | | [facility]ENTER | + + + + + | Product Blood Type | 9500 | | [facility] | | Barcode | | | [place] | | | | | [facility] | | | | | [facility] | + + + + + + + + | Narrative | Performed At | + + + | Specimen Expiration Date: [id number] | [facility] | | | [place] | | | [facility] | + + + + + + + + | Performing | Address | City/State/Zipcode | Phone Number | | Organization | | | | + + + + + | [facility] | [address] | [place] [address] | [phone] | | [place] | | | | | [facility] [...] | [place] | | | Performed by [facility] [address] | | [facility] | | | [address] [place], [place] | | MEDICAL CENTER | | | [address] | | LABORATORY | | | | | [place] | + + + + + + + | Specimen | + + | Blood | + + + + + + + | Performing | Address | City/State/Zipcode | Phone Number | | Organization | | | | + + + + + | [facility] | [address] | [place] [address] | | | [facility] | | | | | [facility]AT[facility] [place] | | | | + + + + + Red Blood Cells (06/14/2018 1212) + + + + + | Component | Value | Ref Range | Performed At | + + + + + | Product Code | [id number] | | [facility] | | | | | [place] | | | | | [facility] | | | | [facility] | + + + + + | UNIT # | [id number] | | [facility] | | | | | [place] | | | | | [facility] | | | | | [facility] | + + + + + | UNIT ABO | O | | [facility] | | | | | [place] | | | | | [facility] | | | | | [facility] | + + + + + | UNIT RH | NEG | | [facility] | | | | | [place] | | | | | [facility] | | | | | [facility]ENTER | + + + + + | CROSSMATCH INTERP | Compatible | | [facility] | | | | | [place] | | | | | [facility] | | | | | [facility] | + + + + + | Unit Status | IS | | [facility] | | | | | [place] | | | | | [facility] | | | | | [facility] | + + + + + | Blood Product | [id number] | | [facility] | | Expiration Date and | | | [place] | | Time | | | [facility] | | | | | [facility]ENTER | + + + + + | Product Blood Type | 9500 | | [facility] | | Barcode | | | [place] | | | | | [facility] | | | | [facility] | + + + + + | Product Code | [id number] | | [facility] | | | | | [place] | | | | | [facility] | | | | [facility] | + + + + + | UNIT # | [id number] | | [facility] | | | | | [place] | | | | | [facility] | | | | | [facility] | + + + + + | UNIT ABO | O | | [facility] | | | | | [place] | | | | | [facility] | | | | [facility] | + + + + + | UNIT RH | NEG | | [facility] | | | | | [place] | | | | | [facility] | | | | [facility] | + + + + + | CROSSMATCH INTERP | Compatible | | [facility] | | | | | [place] | | | | | [facility] | | | | [facility] | + + + + + | Unit Status | IS | | [facility] | | | | | [place] | | | | | [facility] | | | | [facility] | + + + + + | Blood Product | [id number] | | [facility] | | Expiration Date and | | | [place] | | Time | | | [facility] | | | | [facility] | + + + + + | Product Blood Type | 9500 | | [facility] | | Barcode | | | [place] | | | | | [facility] | | | | [facility] | + + + + + + + + | Narrative | Performed At | + + + | Specimen Expiration Date: [id number] | [facility] | | | [place] | | | [facility] | + + + + + + + + | Performing | Address | City/State/Zipcode | Phone Number | | Organization | | | | + + + + + | [facility] | [address] | [place] [address] | [phone] | | [place] | | | | | [facility] [...] | [facility] | | | Performed by [facility] [address] | | [facility] | | | [facility] [place], [place] | | MEDICAL CENTER | | | [address] | | LABORATORY | | | | | [place] | + + + + + + + | Specimen | + + | Blood | + + + + + + + | Performing | Address | City/State/Zipcode | Phone Number | | Organization | | | | + + + + + | [facility] | [address] [place] [address]. | [place] [address] | | | [facility] | | | | | LABORATORY [place] | | | | + + + + + POC Glucose (06/14/2018 0231) + + + + + | Component | Value | Ref Range | Performed At | + + + + + | Glucose, POC | 148 (H)Comment: | 65 - 99 mg/dL | [facility] | | | Performed by [facility] [address] | | [facility] | | | [place] | | MEDICAL CENTER | | | [address] | | LABORATORY | | | | | [place] | + + + + + + + | Specimen | + + | Blood | + + + + + + + | Performing | Address | City/State/Zipcode | Phone Number | | Organization | | | | + + + + + | [facility] | [address] | [place] [address] | | | [facility] | | | | | LABORATORY [place] | | | | + + + + + POC Glucose (06/13/20182038) + + + + + | Component | Value | Ref Range | Performed At | + + + + + | Glucose, POC | 165 (H)Comment: | 65 - 99 mg/dL | [facility] | | | Performed by [facility] [address] | | [facility] | | | [address], [place] | | [facility] | | | [address] | | LABORATORY | | | | | CERNER | + + + + + + + | Specimen | + + | Blood | + + + + + + + | Performing | Address | City/State/Zipcode | Phone Number | | Organization | | | | + + + + + | [facility] | [address] | [place] [address] | | | [facility] | | | | | LABORATORY CERNER | | | | + + + + + POC Glucose (06/13/2018 1609) + + + + + | Component | Value | Ref Range | Performed At | + + + + + | Glucose, POC | 134 (H)Comment: | 65 - 99 mg/dL | [facility] | | | Performed by [facility] [address] | | [facility] | | | [address], [place], [place] | | [facility] | | | [address] | | LABORATORY | | | | | [place] | + + + + + + + | Specimen | + + | Blood | + + + + + + + | Performing | Address | City/State/Zipcode | Phone Number | | Organization | | | | + + + + + | [facility] | [address] | [place] [address] | | | [facility] | | | | | LABORATORY [place] | | | | + + + + + POC Glucose (06/13/2018 1120) + + + + + | Component | Value | Ref Range | Performed At | + + + + + | Glucose, POC | 131 (H)Comment: | 65 - 99 mg/dL | [facility] | | | Performed by [facility] [address] | | [facility] | | | [place] | | [place] | | | [address] | | LABORATORY | | | | | CERNER | + + + + + + + | Specimen | + + | Blood | + + + + + + + | Performing | Address | City/State/Zipcode | Phone Number | | Organization | | | | + + + + + | [facility] | [address] | [place] [address] | | | [facility] | | | | | LABORATORY CERNER | | | | + + + + + POC Glucose (06/13/2018624) + + + + + | Component | Value | Ref Range | Performed At | + + + + + | Glucose, POC | 159 (H)Comment: | 65 - 99 mg/dL | [facility] | | | Performed by [facility] [address] | | [facility] | | | [address], [place] | | MEDICAL [facility]ENTER | | | [address] | | LABORATORY | | | | | CERNER | + + + + + + + | Specimen | + + | Blood | + + + + + + + | Performing | Address | City/State/Zipcode | Phone Number | | Organization | | | | + + + + + | [facility] | [address] | [place] [address] | | | [facility] | | | | | [place] | | | | + + + + + XR Chest AP Portable (06/13/2018621) + + + | Narrative | Performed [...] +---------+ + + CBC no Differential (06/13/2018 0402) + + + + + | Component [...] | [facility] | | | Performed by [facility] [address] | | [facility] | | | [address] [place] | | [facility] | | | [address] | | LABORATORY | | | | | CERNER | + + + + + + + | Specimen | + + | Blood | + + + + + + + | Performing | Address | City/State/Zipcode | Phone Number | | Organization | | | | + + + + + | [facility] | [address] | [place] [address] | | | [facility] | | | | | LABORATORY CERSAMAN | | | | + + + + + Basic Metabolic Panel (06/13/2018 0402) + + + + + | Component [...] [facility] | | | | | [place] | | | | | LABORATORY | | | | | [place] | + + + + + | Estimated GFR | 52 (L)Comment: eGFR<60 | >=90 mL/min/1.73m2 | [facility] | | | consistent with impaired | | [facility] | | | kidney | | [facility]ENTER | | | function.Performed by | | LABORATORY | | | [facility] [address], | | CERNER | | | [place] [address] | | | + + + + + + + | Specimen | + + | Blood | + + + + + + + | Performing | Address | City/State/Zipcode | Phone Number | | Organization | | | | + + + + + | [facility] | [address] | [place] [address] | | | [facility] | | | | | LABORATORY CERNER | | | | + + + + + POC Glucose (06/13/20182) + + + + + | Component | Value | Ref Range | Performed At | + + + + + | Glucose, POC | 152 (H)Comment: | 65 - 99 mg/dL | [facility] | | | Performed by [facility] [address] | | [facility] | | | [address], [place] | | [facility]ICAL [facility]ENTER | | | [address] | | LABORATORY | | | | | CERNER | + + + + + + + | Specimen | + + | Blood | + + + + + + + | Performing | Address | City/State/Zipcode | Phone Number | | Organization | | | | + + + + + | [facility] | [address] | [place] [address] | | | [facility] | | | | | LABORATORY CERNER | | | | + + + + + POC Glucose (06/12/2018 2200) + + + + + | Component | Value | Ref Range | Performed At | + + + + + | Glucose, POC | 172 (H)Comment: | 65 - 99 mg/dL | [facility] | | | Performed by [facility] [address] | | [facility] | | | [address], [place] | | MEDICAL [facility]ENTER | | | [address] | | LABORATORY | | | | | [place] | + + + + + + + | Specimen | + + | Blood | + + + + + + + | Performing | Address | City/State/Zipcode | Phone Number | | Organization | | | | + + + + + | [facility] | [address] | [place] [address] | | | [facility] | | | | | LABORATORY [place] | | | | + + + + + POC Glucose (06/12/2018 1641) + + + + + | Component | Value | Ref Range | Performed At | + + + + + | Glucose, POC | 132 (H)Comment: | 65 - 99 mg/dL | [facility] | | | Performed by [facility] [address] | | [facility] | | | [place] | | [place] | | | [address] | | LABORATORY | | | | | CERNER | + + + + + + + | Specimen | + + | Blood | + + + + + + + | Performing | Address | City/State/Zipcode | Phone Number | | Organization | | | | + + + + + | [facility] | [address] | [place], [place] | | | [facility] | | | | | LABORATORY CERNER | | | | + + + + + POC Glucose (06/12/2018 1602) + + + + + | Component | Value | Ref Range | Performed At | + + + + + | Glucose, POC | 126 (H)Comment: | 65 - 99 mg/dL | [facility] | | | Performed by [facility] [address] | | [facility] | | | [address], [place] | | MEDICAL [facility]ENTER | | | [address] | | LABORATORY | | | | | CERNER | + + + + + + + | Specimen | + + | Blood | + + + + + + + | Performing | Address | City/State/Zipcode | Phone Number | | Organization | | | | + + + + + | [facility]DEMIK[facility] | [address] | [place] [address] | | | [facility] | | | | | LABORATORY CERNER | | | | + + + + + POC Glucose (06/12/2018 1227) + + + + + | Component | Value | Ref Range | Performed At | + + + + + | Glucose, POC | 177 (H)Comment: | 65 - 99 mg/dL | [facility] | | | Performed by [facility] [address] | | [facility] | | | [address], [place], [place] | | MEDICAL [facility]ENTER | | | [address] | | LABORATORY | | | | | [place] | + + + + + + + | Specimen | + + | Blood | + + + + + + + | Performing | Address | City/State/Zipcode | Phone Number | | Organization | | | | + + + + + | [facility] | [address] | [place] [address] | | | [facility] | | | | | LABORATORY [place] | | | | + + + + + POC Glucose (06/12/201859) + + + +-------- ---------+ | Component | Value | Ref Range | Perform ed At | + + + +-------- ---------+ | Glucose, POC | 98Comment: Performed by | 65 - 99 mg/dL | [facility] | | | [facility] [address], | | [facility] | | | [place] [address] | | [place] | | |Performed by [facility] [address], [place] [address] | | [facility] | | | | | CERNER | + + + +-------- ---------+ + + | Specimen | + + | Blood | + + + + + + + | Performing | Address | City/State/Zipcode | Phone Number | | Organization | | | | + + + + + | [facility] | [address] | [place] [address] | | | [facility] | | | | | LABORATORY CERNER | | | | + + + + + POC Glucose (06/12/2018 0600) + + + + + | Component | Value | Ref Range | Performed At | + + + + + | Glucose, POC | 100 (H)Comment: | 65 - 99 mg/dL | [facility] | | | Performed by [facility] [address] | | [facility] | | | [address], [place] | | MEDICAL CENTER | | | [address] | | LABORATORY | | | | | CERNER | + + + + + + + | Specimen | + + | Blood | + + + + + + + | Performing | Address | City/State/Zipcode | Phone Number | | Organization | | | | + + + + + | [facility] | [address] | [place] [address] | | | [facility] | | | | | LABORATORY CERNER | | | | + + + + + POC Glucose (06/12/2018 0508) + + + +-------- ---------+ | Component | Value | Ref Range | Perform ed At | + + + +-------- ---------+ | Glucose, POC | 87Comment: Performed by | 65 - 99 mg/dL | [facility] | | | [facility] [address], | | [facility] | | | [place] [address] | | [place] | | |Performed by [facility] [address], [place] [address] | | LABORAT ORY | | | | | CERNER | + + + +-------- ---------+ + + | Specimen | + + | Blood | + + + + + + + | Performing | Address | City/State/Zipcode | Phone Number | | Organization | | | | + + + + + | [facility] | [address] | [place] [address] | | | [facility] | | | | | [...] | + +---------+ + + POC Glucose (06/12/2018314) + + + +-------- ---------+ | Component | Value | Ref Range | Perform ed At | + + + +-------- ---------+ | Glucose, POC | 98Comment: Performed by | 65 - 99 mg/dL | [facility] | | | [facility] [address], | | [facility] | | | [place] [address] | | MEDICAL CENTER | | |Performed by [facility] [address], [place] [address] | | [facility] | | | | | [place] | + + + +-------- ---------+ + + | Specimen | + + | Blood | + + + + + + + | Performing | Address | City/State/Zipcode | Phone Number | | Organization | | | | + + + + + | [facility] | [address] | [place] [address] | | | [facility] | | | | | LABORATORY [place] | | | | + + + + + ECG 12 lead (06/12/2018 0312) + + + | Narrative | Performed At | + + + | HEART RATE:60 | [facility] | | bpmRR Interval:1000 msAtrial Rate:61 msP-R Interval:176 msP | [facility] | | Duration:184 msP Horizontal Tibbie:5 degP Front Tibbie:55 degQ Onset:508 | | | msQRSD Interval:104 msQT Interval:452 msQTcB:452 msQTcF:452 msQRS | | | Horizontal Tibbie:129 degQRS Tibbie:-53 degI-40 Horizontal Tibbie:77 degI-40 | | | Front Tibbie:-44 degT-40 Horizontal Tibbie:204 degT-40 Front Tibbie:-83 | | | degT Horizontal Tibbie:95 degT Wave Tibbie:39 degS-T Horizontal Tibbie:79 | | | degS-T Front Tibbie:49 degSeverity:- ABNORMAL ECG -INTERP:SINUS | | | RHYTHMINTERP:CONSIDER RIGHT VENTRICULAR HYPERTROPHYINTERP:PROBABLE | | | INFERIOR INFARCT, AGE INDETERMINATEINTERP:BORDERLINE ST ELEVATION, | | | ANTERIOR LEADSElectronically signed by: ELIZABETH CAMPBELL 06-12-2018 | | | 07:37:14 | | |QRS Horizontal Tibbie:129 deg | | |QRS Tibbie:-53 deg | | |I-40 Horizontal Tibbie:77 deg | | |I-40 Front Tibbie:-44 deg | | |T-40 Horizontal Tibbie:204 deg | | |T-40 Front Tibbie:-83 deg | | |T Horizontal Tibbie:95 deg | | |T Wave Tibbie:39 deg | | |S-T Horizontal Tibbie:79 deg | | |S-T Front Tibbie:49 deg | | |Severity:- ABNORMAL ECG - [...] + + + + + | [facility] | [address] | [place] [address] | [phone] | + + + + + CBC [...] | [facility] | | | Performed by [facility] | | [facility] | | | [address] [place] | | MEDICAL CENTER | | | [address] | | LABORATORY | | | | | CERNER | + + + + + + + | Specimen | + + | Blood | + + + + + + + | Performing | Address | City/State/Zipcode | Phone Number | | Organization | | | | + + + + + | [facility] | [address] | [place] [address] | | | [facility] | | | | | [...] [facility] | | | | | [facility] | | | | | LABORATORY | | | | | CERNER | + + + + + | GLUCOSE | 96 | 65 - 99 mg/dL | [facility] | | | | | [facility] | | | | | [facility] | | | | | LABORATORY | | | | | CERNER | + + + + + | Estimated GFR | 51 (L)Comment: eGFR<60 | >=90 mL/min/1.73m2 | [facility] | | | consistent with impaired | | [facility] | | | kidney | | MEDICAL [facility]ENTER | | | function.Performed by | | LABORATORY | | | [facility] [address], | | [place] | | | [place] [address] | | | + + + + + + + | Specimen | + + | Blood | + + + + + + + | Performing | Address | City/State/Zipcode | Phone Number | | Organization | | | | + + + + + | [facility] | [address] | [place] [address] | | | [facility] | | | | | LABORATORY [place] | | | | + + + + + POC Glucose (06/12/2018 0239) + + + + + | Component | Value | Ref Range | Performed At | + + + + + | Glucose, POC | 107 (H)Comment: | 65 - 99 mg/dL | [facility] | | | Performed by [facility] [address] | | [facility] | | | [address], [place] | | MEDICAL [facility]ENTER | | | [address] | | LABORATORY | | | | | CERNER | + + + + + + + | Specimen | + + | Blood | + + + + + + + | Performing | Address | City/State/Zipcode | Phone Number | | Organization | | | | + + + + + | [facility] | [address] | [place] [address] | | | [facility] | | | | | LABORATORY CERNER | | | | + + + + + POC Glucose (06/12/2018 0135) + + + +-------- ---------+ | Component | Value | Ref Range | Perform ed At | + + + +-------- ---------+ | Glucose, POC | 99Comment: Performed by | 65 - 99 mg/dL | [facility] | | | [facility] [address], | | [facility] | | | [place] [address] | | [place] | | |Performed by [facility] [address], [place] [address] | | LABORAT ORY | | | | | CERNER | + + + +-------- ---------+ + + | Specimen | + + | Blood | + + + + + + + | Performing | Address | City/State/Zipcode | Phone Number | | Organization | | | | + + + + + | [facility] | [address] | [place] [address] | | | [facility] | | | | | LABORATORY CERNER | | | | + + + + + POC Glucose (06/11/20188) + + + + + | Component | Value | Ref Range | Performed At | + + + + + | Glucose, POC | 105 (H)Comment: | 65 - 99 mg/dL | [facility] | | | Performed by [facility] [address] | | [facility] | | | [address], [place] | | [place] | | | [address] | | LABORATORY | | | | | CERNER | + + + + + + + | Specimen | + + | Blood | + + + + + + + | Performing | Address | City/State/Zipcode | Phone Number | | Organization | | | | + + + + + | Y[facility]ELISDEMIKarly [facility] | [address] | [place] [address] | | | [facility] | | | | | LABORATORY [place] | | | | + + + + + POC Glucose (06/11/2018 2319) + + + + + | Component | Value | Ref Range | Performed At | + + + + + | Glucose, POC | 113 (H)Comment: | 65 - 99 mg/dL | [facility] | | | Performed by [facility] [address] | | [facility] | | | [place] | | MEDICAL CENTER | | | [address] | | LABORATORY | | | | [...] [address] | [place] [address] | | | [facility] | | | | | LABORATORY CERNER | | | | + + + + + Potassium Whole Blood (06/11/2018 2301) + + + + + | Component | Value | Ref Range | Performed At | + + + + + | K | 5.4 (H)Comment: | 3.5 - 5.0 mmol/L | [facility] | | | Performed by [facility] [address] | | [facility] | | | [address] | | [place] | | | [address] | | LABORATORY | | | | | [place] | + + + + + + + | Specimen | + + | Blood | + + + + + + + | Performing | Address | City/State/Zipcode | Phone Number | | Organization | | | | + + + + + | [facility] | [address] | [place] [address] | | | [facility] | | | | | LABORATORY CERNER | | | | + + + + + Glucose, Respiratory (06/11/20182300) + + + + + | Component | Value | Ref Range | Performed At | + + + + + | GLUCOSE | 112 (H)Comment: | 65 - 99 mg/dL | [facility] | | | Performed by [facility] [address] | | [facility] | | | [address], [place] | | [facility] | | | [address] | | LABORATORY | | | | | CERNER | + + + + + + + | Specimen | + + | Blood | + + + + + + + | Performing | Address | City/State/Zipcode | Phone Number | | Organization | | | | + + + + + | [facility]ISDEMIKarly [facility] | [address] | [place] [address] | | | [facility] | | | | | [place] | | | | + + + + + Blood Gas, Arterial (06/11/20182300) + + + ----+ + | Component | Value | Ref Range | Performed At | + + + ----+ + | pH, Arterial | 7.35 (L) | 7.37 - 7.47 | [facility] | | | | | [...] % | [facility] | | | by [facility] [address], | | [facility] | | | [place] [address] | | MEDICAL CENTER | | |Performed by [facility] [address], [place] [address] | | LABORATORY | | | | | CERNER | + + + ----+ + + + | Specimen | + + | Blood - Artery | + + + + + + + | Performing | Address | City/State/Zipcode | Phone Number | | Organization | | | | + + + + + | [facility] | [address] | [place] [address] | | | [facility] | | | | | LABORATORY [place] | | | | + + + + + POC Glucose (06/11/2018 2156) + + + + + | Component | Value | Ref Range | Performed At | + + + + + | Glucose, POC | 116 (H)Comment: | 65 - 99 mg/dL | [facility] | | | Performed by [facility] [address] | | [facility] | | | [place] | | [place] | | | [address] | | LABORATORY | | | | | [place] | + + + + + + + | Specimen | + + | Blood | + + + + + + + | Performing | Address | City/State/Zipcode | Phone Number | | Organization | | | | + + + + + | [facility] | [address] | [place] [address] | | | [facility] | | | | | LABORATORY CERNER | | | | + + + + + POC Glucose (06/11/20182028) + + + + + | Component | Value | Ref Range | Performed At | + + + + + | Glucose, POC | 147 (H)Comment: | 65 - 99 mg/dL | [facility] | | | Performed by [facility] [address] | | [facility] | | | [address] [place] | | MEDICAL CENTER | | | [address] | | LABORATORY | | | | | CERNER | + + + + + + + | Specimen | + + | Blood | + + + + + + + | Performing | Address | City/State/Zipcode | Phone Number | | Organization | | | | + + + + + | [facility] | [address] | [place] [address] | | | [facility] | | | | | LABORATORY [place] | | | | + + + + + Potassium (06/11/20181957) + + + +-------- ---------+ | Component | Value | Ref Range | Perform ed At | + + + +-------- ---------+ | K | 3.9Comment: Performed | 3.5 - 5.0 mmol/L | [facility] | | | by [facility] [address], | | [facility] | | | [place] [address] | | [place] | | |Performed by [facility] [address], [place] [address] | | LABORAT ORShahnaz | | | | | CERNER | + + + +-------- ---------+ + + | Specimen | + + | Blood | + + + + + + + | Performing | Address | City/State/Zipcode | Phone Number | | Organization | | | | + + + + + | [facility] | [address] | [place] [address] | | | [facility] | | | | | LABORATORY CERNER | | | | + + + + + POC Glucose (06/11/20181851) + + + + + | Component | Value | Ref Range | Performed At | + + + + + | Glucose, POC | 156 (H)Comment: | 65 - 99 mg/dL | [facility] | | | Performed by [facility] [address] | | [facility] | | | [address] [place] | | [facility] | | | [address] | | LABORATORY | | | | | CERNER | + + + + + + + | Specimen | + + | Blood | + + + + + + + | Performing | Address | City/State/Zipcode | Phone Number | | Organization | | | | + + + + + | [facility] | [address] | [place] [address] | | | [facility] | | | | | LABORATORY [place] | | | | + + + + + ECG 12 lead (06/11/2018 1659) + + + | Narrative | Performed At | + + + | HEART RATE:72 | [facility] | | bpmRR Interval:833 msAtrial Rate:72 msP-R Interval:176 msP | [facility] | | Duration:180 msP Horizontal Tibbie:-10 degP Front Tibbie:68 degQ Onset:512 | | | msQRSD Interval:110 msQT Interval:444 msQTcB:486 msQTcF:472 msQRS | | | Horizontal Tibbie:112 degQRS Tibbie:-63 degI-40 Horizontal Tibbie:100 | | | degI-40 Front Tibbie:-58 degT-40 Horizontal Tibbie: degT-40 Front Tibbie:160 | | | degT Horizontal Tibbie:104 degT Wave Tibbie:-11 degS-T Horizontal | | | Tibbie:104 degS-T Front Tibbie:32 degSeverity:- ABNORMAL ECG -INTERP:SINUS | | | RHYTHMINTERP:PROBABLE LEFT ATRIAL ABNORMALITYINTERP:NONSPECIFIC IVCD | | | WITH LADINTERP:INFERIOR INFARCT, AGE INDETERMINATEINTERP:LATERAL | | | INFARCT, OLDElectronically signed by: ELIZABETH CAMPBELL 06-12-2018 | | | 11:18:02 | | |QRS Horizontal Tibbie:112 deg | | |QRS Tibbie:-63 deg | | |I-40 Horizontal Tibbie:100 deg | | |I-40 Front Tibbie:-58 deg | | |T-40 Horizontal Tibbie: deg | | |T-40 Front Tibbie:160 deg | | |T Horizontal Tibbie:104 deg | | |T Wave Tibbie:-11 deg | | |S-T Horizontal Tibbie:104 deg | | |S-T Front Tibbie:32 deg | | |Severity:- ABNORMAL ECG - [...] + + | [facility] | [address] | [place] [address] | [phone] | + + + + + PTT [...] | | | | | seconds.Performed by [facility] | | | | | [address], | | | | | [place] [address] | | | + + + + + + + | Specimen | + + | Blood | + + + + + + + | Performing | Address | City/State/Zipcode | Phone Number | | Organization | | | | + + + + + | [facility] | [address] | [place] [address] | | | [facility] | | | | | LABORATORY CERNER | | | | + + + + + Protime INR (06/11/2018 1637) + + + + [...] CERNER | | | to 3.5Performed by [facility] | | | | | [address], | | | | | [place] [address] | | | + + + + + + + | Specimen | + + | Blood | + + + + + + + | Performing | Address | City/State/Zipcode | Phone Number | | Organization | | | | + + + + + | [facility] | [address] | [place] [address] | | | [facility] | | | | | [...] [facility] | | | | | [facility] | | | | | LABORATORY | | | | | CERNER | + + + + + | Estimated GFR | 55 (L)Comment: eGFR<60 | >=90 mL/min/1.73m2 | [facility] | | | consistent with impaired | | [facility] | | | kidney | | [facility]ENTER | | | function.Performed by | | LABORATORY | | | [facility] [address], | | [place] | | | [place] [address] | | | + + + + + + + | Specimen | + + | Blood | + + + + + + + | Performing | Address | City/State/Zipcode | Phone Number | | Organization | | | | + + + + + | [facility] | [address] | [place] [address] | | | [facility] | [...] | [facility] | | | | | [facility] [...] | [facility] | | | Performed by [facility] [address] | | [facility] | | | [address] | | [place] | | | [id number] | | LABORATORY | | | | | [place] | + + + + + + + | Specimen | + + | Blood | + + + + + + + | Performing | Address | City/State/Zipcode | Phone Number | | Organization | | | | + + + + + | [facility] | [address] | [place] [address] | | | [facility] | | | | | LABORATORY [facility] | | | | + + + + + Lactic Acid, Arterial, Respiratory (06/11/2018 1636) + + + + + | Component | Value | Ref Range | Performed At | + + + + + | Lactate, Arterial | 1.0Comment: Performed | 0.5 - 1.6 mmol/L | [facility] | | | by [facility] [address], | | [facility] | | | [place] [address] | | [facility]ICAL [facility]ENTER | | |Performed by [facility] [address], [place] [address] | | LABORATORY | | | | | [facility] | + + + + + + + | Specimen | + + | Blood | + + + + + + + | Performing | Address | City/State/Zipcode | Phone Number | | Organization | | | | + + + + + | [facility] | [address] | [place] [address] | | | [facility] | | | | | LABORATORY [place] | | | | + + + + + Calcium, Ionized, Respiratory (06/11/2018 1636) + + + + + | Component | Value | Ref Range | Performed At | + + + + + | Calcium, Ionized | 5.09 | 4.75 - 5.30 mg/dL | [facility] | | (mg/dL) | | | [facility] | | | | | [facility] | | | | | LABORATORY | | | | | [facility] | + + + + + | Calcium, pH | 5.06Comment: Performed | 4.75 - 5.30 mg/dL | [facility] | | Normalized | by [facility] [facility] [address], | | [facility] | | | [place] [address] | | [facility] | | |Performed by [facility] [address], [place] [address] | | LABORATORY | | | | | CERNER | + + + + + + + | Specimen | + + | Blood | + + + + + + + | Performing | Address | City/State/Zipcode | Phone Number | | Organization | | | | + + + + + | [facility] | [address] | [place] [address] | | | [facility] | | | | | LABORATORY CERNER | | | | + + + + + Glucose, Respiratory (06/11/2018 1636) + + + + + | Component | Value | Ref Range | Performed At | + + + + + | GLUCOSE | 122 (H)Comment: | 65 - 99 mg/dL | [facility] | | | Performed by [facility] [address] | | [facility] | | | [address], [place], [place] | | MEDICAL CENTER | | | [address] | | LABORATORY | | | | | [place] | + + + + + + + | Specimen | + + | Blood | + + + + + + + | Performing | Address | City/State/Zipcode | Phone Number | | Organization | | | | + + + + + | [facility] | [address] | [place] [address] | | | [facility] | | | | | LABORATORY [place] | | | | + + + + + Blood Gas, Arterial (06/11/2018 1636) + + + ----+ + | Component | Value | Ref Range | Performed At | + + + ----+ + | pH, Arterial | 7.39 | 7.37 - 7.47 | [facility] | | | | | [...] + ----+ + | Comment | [id number] | | [facility] | | | | [...] % | [facility] | | | by [facility] [address], | | [facility] | | | [place], [place] | | [place] | | |Performed by [facility] [address], [place], [place] | | LABORATORY | | | [...] SACRED | [address] | [place], [place] | | | [facility] [...] | appropriate positions as described. Signed by: Janak, | | | Parish [place] Sign Date/Time: [...] | [facility] | | | Performed by [facility] [address] | | [facility] | | | [address], [place], [place] | | MEDICAL CENTER | | | [address] | | LABORATORY | | | | | AL[place]IA | + + + + + + + | Specimen | + + | Blood | + + + + + + + | Performing | Address | City/State/Zipcode | Phone Number | | Organization | | | | + + + + + | [facility] | [address] | [place] [address] | | | [facility] | | | | | LABORATORY [place]IA | | | | + + + + + Blood Gas , Arterial, Surgery (06/11/2018 1525) + + + ----+ + | Component | Value | Ref Range | Performed At | + + + ----+ + | pH, Arterial | 7.37 | 7.37 - 7.47 | [facility] | | | | | [...] L | [facility] | | | by [facility] [address], | | [facility] | | | [place] [address] | | MEDICAL CENTER | | |Performed by [facility] [address], [place] [address] | | LABORATORY | | | | | CERNER | + + + ----+ + + + | Specimen | + + | Blood | + + + + + + + | Performing | Address | City/State/Zipcode | Phone Number | | Organization | | | | + + + + + | [facility] | [address] | [place] [address] | | | [facility] | | | | | [...] | assay has been evaluated | | [facility] | | | for screening for [...] | | | | | seconds.Performed by [facility] | | | | | [address], | | | | | [place] [address] | | | + + + + + + + | Specimen | + + | Blood | + + + + + + + | Performing | Address | City/State/Zipcode | Phone Number | | Organization | | | | + + + + + | [facility] | [address] | [place] [address] | | | [facility] | | | | | [place] | | | | + + + + + Lactic Acid, Arterial, Surgery (06/11/2018 1450) + + + + + | Component | Value | Ref Range | Performed At | + + + + + | Lactate, Arterial | 2.0 (H)Comment: | 0.5 - 1.6 mmol/L | [facility] | | | Performed by [facility] [address] | | [facility] | | | [address], [place] | | MEDICAL CENTER | | | [address] | | LABORATORY | | | | | ALTAGRACIA | + + + + + + + | Specimen | + + | Blood | + + + + + + + | Performing | Address | City/State/Zipcode | Phone Number | | Organization | | | | + + + + + | [facility] | [address] | [place] [address] | | | [facility] | | | | | LABORATORY [place]IA | | | | + + + + + Blood Gas , Arterial, Surgery (06/11/2018 1450) + + + ----+ + | Component | Value | Ref Range | Performed At | + + + ----+ + | pH, Arterial | 7.37 | 7.37 - 7.47 | [facility] | | | | | [...] L | [facility] | | | by [facility] [address], | | [facility] | | | [place], [place] | | MEDICAL CENTER | | |Performed by [facility] [address], [place], [place] | | LABORATORY | | | | | CERNER | + + + ----+ + + + | Specimen | + + | Blood | + + + + + + + | Performing | Address | City/State/Zipcode | Phone Number | | Organization | | | | + + + + + | [facility] | [address] | [place], [place] | | | HEART [facility] | | | | | LABORATORY CERNER | | | | + + + + + Lactic Acid, Arterial, Surgery (06/11/2018 1400) + + + + + | Component | Value | Ref Range | Performed At | + + + + + | Lactate, Arterial | 1.5Comment: Performed | 0.5 - 1.6 mmol/L | [facility] | | | by [facility] [address], | | [facility] | | | [place] [address] | | [facility] | | |Performed by [facility] [address], [place] [address] | | LABORATORY | | | | | CERNER | + + + + + + + | Specimen | + + | Blood | + + + + + + + | Performing | Address | City/State/Zipcode | Phone Number | | Organization | | | | + + + + + | [facility] | [address] | [place] [address] | | | [facility] | | | | | [...] | [facility] | | | Performed by [facility] [address] | | [facility] | | | [address], [place] | | MEDICAL CENTER | | | [address] | | LABORATORY | | | | | [place]IA | + + + + + + + | Specimen | + + | Blood | + + + + + + + | Performing | Address | City/State/Zipcode | Phone Number | | Organization | | | | + + + + + | [facility] | [address] | [place] [address] | | | [facility] | | | | | LABORATORY [place]IA | | | | + + + + + Lactic Acid, Arterial, Surgery (06/11/2018 1334) + + + + + | Component | Value | Ref Range | Performed At | + + + + + | Lactate, Arterial | 1.2Comment: Performed | 0.5 - 1.6 mmol/L | [facility] | | | by [facility] [address], | | [facility] | | | [place] [address] | | [place] | | |Performed by [facility] [address] [facility] [facility], [place] [address] | | LABORATORY | | | | | CERNER | + + + + + + + | Specimen | + + | Blood | + + + + + + + | Performing | Address | City/State/Zipcode | Phone Number | | Organization | | | | + + + + + | [facility] | [address] | [place] [address] | | | [facility] | | | | | [...] | [facility] | | | Performed by [facility] [address] | | [facility] | | | [address], [place], [place] | | [facility]ICAL [facility] | | | [address] | | LABORATORY | | | | | [place]TAG[place]IA | + + + + ----+ + + | Specimen | + + | Blood | + + + + + + + | Performing | Address | City/State/Zipcode | Phone Number | | Organization | | | | + + + + + | [facility] | [address] | [place] [address] | | | [facility] | | | | | LABORATORY CERSAMAN | | | | + + + + + ECHO Transesophageal (CHIQUITA) (06/11/2018 1305) + -----+ + | Narrative | Performed At | + -----+ + | | [facility] | | Transesophageal Echocardiography Report (CHIQUITA) Demographics Patient | | | Name [facility] Room | | | Number Therese BOGGS | | | Patient Number [id number] Date of | | | Study 06/11/2018 Visit Number [id number] | | | Accession | | | [id number] Interpreting Sharad Richard | | | Number | | | Physician Date of 1955 Referring | | | Physician ELEANOR MARTIN Age 62 | | | year(s) 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 Visible portions of ascending aorta and arch normal. 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 Pulmonary artery | | | . Normal pericardium. No pericardial fluid. 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 Pulmonary artery [id number]. Normal pericardium. No pericardial fluid. No pleural [...] mmol/L | [facility] | | | by [facility] [address], | | [facility] | | | [place], [place] | | [place] | | |Performed by [facility] [address], [place] [address] | | LABORATORY | | | | | [place]IA | + + + + + + + | Specimen | + + | Blood | + + + + + + + | Performing | Address | City/State/Zipcode | Phone Number | | Organization | | | | + + + + + | [facility] | [address] | [place], [place] | | | [facility] | | | | | [...] [facility] | | Normalized | Performed by [facility] | | [facility] | | | [address] [place] | | MEDICAL CENTER | | | [address] | | LABORATORY | | | | | CERNER | + + + + + + + | Specimen | + + | Blood | + + + + + + + | Performing | Address | City/State/Zipcode | Phone Number | | Organization | | | | + + + + + | [facility] | [address] | [place] [address] | | | [facility] | | | | | LABORATORY CERNER | | | | + + + + + Lactic Acid, Arterial, Surgery (06/11/2018 1035) + + + + + | Component | Value | Ref Range | Performed At | + + + + + | Lactate, Arterial | 0.9Comment: Performed | 0.5 - 1.6 mmol/L | [facility] | | | by [facility] [address], | | [facility] | | | [place], [place] | | MEDICAL CENTER | | |Performed by [facility] [address], [place] | | LABORATORY | | | | | [place] | + + + + + + + | Specimen | + + | Blood | + + + + + + + | Performing | Address | City/State/Zipcode | Phone Number | | Organization | | | | + + + + + | [facility] | [address] | [place], [place] | | | [facility] | | | | | [...] (L)Comment: | 135 - 145 mmol/L | [facility] | | | Performed by [facility] | | [facility] | | | [address] [place], [place] | | MEDICAL CENTER | | | [address] | | LABORATORY | | | | | CERNER | + + + + + + + | Specimen | + + | Blood | + + + + + + + | Performing | Address | City/State/Zipcode | Phone Number | | Organization | | | | + + + + + | [facility] | [address] | [place] [address] | | | [facility] | | | | | LABORATORY CERNER | | | | + + + + + Type and Screen (06/11/2018512) + + + + + | Component | Value | Ref Range | Performed At | + + + + + | Antibody Screen | Positive | | [facility] | | | | | [place] [facility] | | | | | [facility] | | | | [facility] | + + + + + | ABO | O | | [facility] | | | | | [place] | | | | | [facility] | | | | | [facility] | + + + + + | Rh Type | Negative | | [facility] | | | | | [place] | | | | | [facility] | | | | [facility] | + + + + + + + | Specimen | + + | Blood | + + + + + | Narrative | Performed At | + + + | Specimen Expiration Date: [id number] | [facility] | | | [place] | | | [facility] | | | [facility] | + + + + + + + + | Performing | Address | City/State/Zipcode | Phone Number | | Organization | | | | + + + + + | [facility] | [address] | [place] [address] | [phone] | | [place] | | | | | [facility] [...] | [facility] | | | Performed by [facility] [address] | | [facility] | | | [facility] [place], [place] | | MEDICAL CENTER | | | [address] | | LABORATORY | | | | | [place] | + + + + + + + | Specimen | + + | Blood | + + + + + + + | Performing | Address | City/State/Zipcode | Phone Number | | Organization | | | | + + + + + | [facility] | [address] [place] [address]. | [place] [address] | | | [facility] | | | | | LABORATORY [place] | | | | + + + + + Protime INR (06/11/20182) + + + + + | Component [...] | CERNER | | | 3.5Performed by [facility] [address] | | | | | [place] | | | | | [address] | | | + + + + + + + | Specimen | + + | Blood | + + + + + + + | Performing | Address | City/State/Zipcode | Phone Number | | Organization | | | | + + + + + | [facility] | [address] | [place] [address] | | | [facility] | | | | | [...] | [facility] | | | Performed by [facility] [address] | | [facility] | | | [address] [place] | | MEDICAL CENTER | | | [address] | | LABORATORY | | | | | CERNER | + + + + + + + | Specimen | + + | Blood | + + + + + + + | Performing | Address | City/State/Zipcode | Phone Number | | Organization | | | | + + + + + | [facility] | [address] | [place] [address] | | | [facility] | | | | | [...] 70 (L)Comment: eGFR<60 | >=90 mL/min/1.73m2 | [facility] | | | consistent with impaired | | [facility] | | | kidney | | [place] | | | function.Performed by | | LABORATORY | | | [facility] [address], | | [place] | | | [place] [address] | | | + + + + + + + | Specimen | + + | Blood | + + + + + + + | Performing | Address | City/State/Zipcode | Phone Number | | Organization | | | | + + + + + | [facility] | [address] | [place] [address] | | | [facility] | | | | | LABORATORY [place] | | | | + + + + + PTT (06/11/2018 0312) + + + + + | Component | Value | Ref Range | Performed At | + + + + + | PTT | 78 (H)Comment: Deep | 26 - 36 sec | [facility] | | | venous thrombosis or | | [facility] | | | pulmonary embolism | | [place] | | | therapeutic heparin | | [...] | | | | | seconds.Performed by [facility] | | | | | [address], | | | | | [place] [address] | | | + + + + + + + | Specimen | + + | Blood | + + + + + + + | Performing | Address | City/State/Zipcode | Phone Number | | Organization | | | | + + + + + | [facility] | [address] | [place] [address] | | | [facility] | | | | | [place] | | | | + + + + + MRSA NAAT (06/11/2018 0010) + + + +--------- --------+ | Component | Value | Ref Range | Performe d At | + + + +--------- --------+ | MRSA DNA | Negative | Negative | [facility] | | | | | [facility] | | | | | [place] | | | | | LABORATO RY | | | | | CERNER | + + + +--------- --------+ | Specimen Source | NasalComment: Performed | | [facility] | | | by [place] [address], | | [facility] | | | [place] [address] | | [place] | | |Performed by [facility] [address], [place] [address] | | LABORATO RY | | | | | CERNER | + + + +--------- --------+ + + | Specimen | + + | Tissue - Nares | + + + + + + + | Performing | Address | City/State/Zipcode | Phone Number | | Organization | | | | + + + + + | [facility] | [address] | [place] [address] | | | [facility] | | | | | [...] + + + + + | Specific [place] | 1.010 | 1.001 - 1.030 | [...] | [facility] | | | Performed by [facility] [address] | | [facility] | | | [address] [place] | | MEDICAL CENTER | | | [address] | | LABORATORY | | | | [...] + | [facility] | [address] | [place] [address] | | | [facility] | | | | | [place] | | | | + + + + + POC Glucose (06/10/2018 2254) + + + + + | Component | Value | Ref Range | Performed At | + + + + + | Glucose, POC | 129 (H)Comment: | 65 - 99 mg/dL | [facility] | | | Performed by [facility] [address] | | [facility] | | | [place] | | [place] | | | [address] | | LABORATORY | | | | | CERNER | + + + + + + + | Specimen | + + | Blood | + + + + + + + | Performing | Address | City/State/Zipcode | Phone Number | | Organization | | | | + + + + + | [facility] | [address] | [place] [address] | | | [facility] | | | | | [...] | | | pulmonary embolism | | [facility] | | | therapeutic heparin | [...] | | | | | seconds.Performed by [facility] | | | | | [address], | | | | | [place] [address] | | | + + + + + + + | Specimen | + + | Blood | + + + + + + + | Performing | Address | City/State/Zipcode | Phone Number | | Organization | | | | + + + + + | [facility] | [address] | [place] [address] | | | [facility] | | | | | [...] 67 (L)Comment: eGFR<60 | >=90 mL/min/1.73m2 | [facility] | | | consistent with impaired | | [facility] | | | kidney | | MEDICAL CENTER | | | function.Performed by | | LABORATORY | | | [facility] [address], | | CERNER | | | [place] [address] | | | + + + + + + + | Specimen | + + | Blood | + + + + + + + | Performing | Address | City/State/Zipcode | Phone Number | | Organization | | | | + + + + + | [facility] | [address] | [place] [address] | | | [facility] | | | | | LABORATORY [place] | | | | + + + + + Oliveime INR (06/10/2018 1722) + + + + + | Component | Value | Ref Range | Performed At | + + + + + | Protime | 12.5 | 12.0 - 14.2 sec | [facility] | | | | | [facility] | | | | | [facility] | | | | | [...] | C[place] | | | 3.5Performed by [facility] [address] | | | | | [address] [place] | | | | | [address] | | | + + + + + + + | Specimen | + + | Blood | + + + + + + + | Performing | Address | City/State/Zipcode | Phone Number | | Organization | | | | + + + + + | [facility] | [address] | [place] [address] | | | [facility] | | | | | LABORATORY CERNER | | | | + + + + + POC Glucose (06/10/2018 1623) + + + + + | Component | Value | Ref Range | Performed At | + + + + + | Glucose, POC | 113 (H)Comment: | 65 - 99 mg/dL | [facility] | | | Performed by [facility] [address] | | [facility] | | | [address], [place] | | MEDICAL CENTER | | | [address] | | LABORATORY | | | | | CERNER | + + + + + + + | Specimen | + + | Blood | + + + + + + + | Performing | Address | City/State/Zipcode | Phone Number | | Organization | | | | + + + + + | [facility] | [address] | [place] [address] | | | [facility] | | | | | [...] | | MEDICAL CENTER | | | [place] | | [...] Amplification test | | | | | ([id number]).Performed At: | | | | | [facility] [id number] | | | | | [address] | | | | | [place], [place] | | | | | [phone] [place] | | | | | [place] Ph:[phone] | | | + + + + + + + | Specimen | + + | Blood | + + + + + + + | Performing | Address | City/State/Zipcode | Phone Number | | Organization | | | | + + + + + | [facility] | [address] | [place] [address] | | | [facility] | | | | | [...] | | | embolism therapeutic | | [place] | | | heparin levels of 0.3 [...] | | | | | seconds.Performed by [facility] | | | | | [address], | | | | | [place] [address] | | | + + + + + + + | Specimen | + + | Blood | + + + + + + + | Performing | Address | City/State/Zipcode | Phone Number | | Organization | | | | + + + + + | [facility] | [address] | [place] [address] | | | [facility] | | | | | [place] | | | | + + + + + ECG 12 lead (06/10/2018 1210) + + + | Narrative | Performed At | + + + | HEART RATE:71 | [facility] | | bpmRR Interval:845 msAtrial Rate:71 msP-R Interval:148 msP | [facility] | | Duration:152 msP Horizontal Tibbie:32 degP Front Tibbie:62 degQ Onset:512 | | | msQRSD Interval:110 msQT Interval:416 msQTcB:453 msQTcF:440 msQRS | | | Horizontal Tibbie:199 degQRS Tibbie:-83 degI-40 Horizontal Tibbie:77 degI-40 | | | Front Tibbie:-74 degT-40 Horizontal Tibbie:242 degT-40 Front Tibbie:216 | | | degT Horizontal Tibbie:84 degT Wave Tibbie:69 degS-T Horizontal Tibbie:97 | | | degS-T Front Tibbie:107 degSeverity:- ABNORMAL ECG -INTERP:SINUS | | | RHYTHMINTERP:NONSPECIFIC IVCD WITH LADINTERP:INFERIOR INFARCT, | | | OLDElectronically signed by: ELIZABETH CAMPBELL 06-12-2018 11:24:19 | | |QTcB:453 ms | | |QTcF:440 ms | | |QRS Horizontal Tibbie:199 deg | | |QRS Tibbie:-83 deg | | |I-40 Horizontal Tibbie:77 deg | | |I-40 Front Tibbie:-74 deg | | |T-40 Horizontal Tibbie:242 deg | | |T-40 Front Tibbie:216 deg | | |T Horizontal Tibbie:84 deg | | |T Wave Tibbie:69 deg | | |S-T Horizontal Tibbie:97 deg | | |S-T Front Tibbie:107 deg | | |Severity:- ABNORMAL ECG - [...] + + | [facility] | [address] | [place] [address] | [phone] | + + + + + Pulmonary [...] | | | | | seconds.Performed by [facility] | | | | | [address], | | | | | [place] [address] | | | + + + + + + + | Specimen | + + | Blood | + + + + + + + | Performing | Address | City/State/Zipcode | Phone Number | | Organization | | | | + + + + + | [facility] | [address] | [place] [address] | | | [facility] | | | | | LABORATORY CERNER | | | | + + + + + Hepatitis Panel, Chronic (06/10/2018654) + + + + + | Component [...] [facility] | | | | | [facility] | | | [place] | | [...] Amplification test | | | | | ([id number]).Performed At: | | | | | [facility] [id number] | | | | | [place] [address] | | | | | [place], [place] | | | | | [phone] Daniel | | | | | L Ph:[phone] | | | + + + + + | HEP A TOTAL AB | Positive (A) | Negative | [facility] | | | | | [facility] | | | | | [place] | | | | | LABORATORY | [...] + + | [facility] | [address] | [place] [address] | | | [facility] | | | | | LABORATORY CERNER | | | | + + + + + Hemoglobin A1C (06/10/2018 0655) + + + + + | Component | Value | Ref Range | Performed At | + + + + + | Hemoglobin A1c | 5.5Comment: The ADA | 4.3 - 6.1 % | [facility] | | | recommends A1C values of | | [facility] | | | less than 7% as the | | [facility] | | | goal for diabetic | | LABORATORY | | | therapy. | | [facility] | + + + + + | Estimated Average | 111Comment: The ADA | 65 - 154 mg/dL | [facility] | | Glucose | considers an Estimated | | [facility] | | | Average Glucose (eAG) | | [facility] | | | result of LT 154 [...] | | | | | formula.Performed by [facility] | | | | | [address], | | | | | [place] [address] | | | + + + + + + + | Specimen | + + | Blood | + + + + + + + | Performing | Address | City/State/Zipcode | Phone Number | | Organization | | | | + + + + + | [facility] | [address] | [place] [address] | | | [facility] | | | | | [place] | | | | + + + + + ABO Rh (06/10/2018 0649) + + + + + | Component | Value | Ref Range | Performed At | + + + + + | ABO | O | | [facility] | | | | | [facility] | | | | | [facility] | | | | [facility] | + + + + + | Rh Type | Negative | | [facility] | | | | | [facility] | | | | | [facility] | | | | [facility] | + + + + + + + + | Narrative | Performed At | + + + | Specimen Expiration Date: [id number] | [facility] | | | [facility] | | | [facility] | + + + + + + + + | Performing | Address | City/State/Zipcode | Phone Number | | Organization | | | | + + + + + | [facility] | [address] | [place] [address] | [phone] | | [facility] | | | | | [facility] | | | | [facility] | | | | + + + + + Antibody Screen (06/10/2018 0649) + + + + + | Component | Value | Ref Range | Performed At | + + + + + | Antibody Screen | Positive | | REFERENCE LAB | | | | | [facility] [facility] | | [facility] | + + + + + + + + | Narrative | Performed At | + + + | Specimen Expiration Date: [id number] | REFERENCE LAB | | | [facility] | + + + + + + + + | Performing | Address | City/State/Zipcode | Phone Number | | Organization | | | | + + + + + | REFERENCE LAB | [address] | [place] [address] | [phone] | | [facility] | | | | [facility] | | [facility] | | | | + + + + + Antibody identification (06/10/201845) + + + + + | Component | Value | Ref Range | Performed At | + + + + + | Antibody ID | Anti-Javierka | | REFERENCE LAB | | | | | [facility] | | | | | [facility] | + + + + + + + + | Narrative | Performed At | + + + | Specimen Expiration Date: [id number] | REFERENCE LAB | | | [facility] | + + + + + + + + | Performing | Address | City/State/Zipcode | Phone Number | | Organization | | | | + + + + + | REFERENCE LAB | [address] | [place] [address] | [phone] | | [facility] | [facility] | [facility] | [facility] | | | | + + + + + Type and Screen (06/10/2018 0046) + + + + + | Component | Value | Ref Range | Performed At | + + + + + | ABO | O | | REFERENCE LAB | | | | | [facility] | | | [facility] | + + + + + | Rh Type | Negative | | REFERENCE LAB | | | | | [facility] | | [facility] | + + + + + | Antibody Screen | Positive | | REFERENCE LAB | | | | | [facility] | | | [facility] | + + + + + + + | Specimen | + + | Blood | + + + + + | Narrative | Performed At | + + + | Specimen Expiration Date: [id number] | REFERENCE LAB | | | [facility] | + + + + + + + + | Performing | Address | City/State/Zipcode | Phone Number | | Organization | | | | + + + + + | REFERENCE LAB | [address] | [place] [address] | [phone] | | [facility] | | | | | [facility] | [facility] | | | | + + + + + PTT (06/10/2018 0046) + + + + + [...] | | | | | seconds.Performed by [facility] | | | | | [address], | | | | | [place] [address] | | | + + + + + + + | Specimen | + + | Blood | + + + + + + + | Performing | Address | City/State/Zipcode | Phone Number | | Organization | | | | + + + + + | [facility] | [address] | [place] [address] | | | [facility] | | | | | [...] | proximal 40% LAD, 95% ostial septal supervisor litharge, 70% mid and distal LAD, 100% mid [...] | | | LAD, 95% ostial septal supervisor litharge, 70% mid and distal LAD, 100% mid [...] + NM Nuclear Stress Test (Exercise) (06/09/2018 1045) + +--------+ + + | Component | [...] lateral castillo from | | | prior AL. 4. Mild destinee infarct ischemia. LARGE SEVERE inferior and | | | Lateral AL. 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 | | Duration:176 msP Horizontal Tibbie:19 degP Front Tibbie:70 degQ Onset:512 | | | msQRSD Interval:110 msQT Interval:444 msQTcB:480 msQTcF:467 msQRS | | | Horizontal Tibbie:157 degQRS Tibbie:-77 degI-40 Horizontal Tibbie:75 degI-40 | | | Front Tibbie:-59 degT-40 Horizontal Tibbie:240 degT-40 Front Tibbie:267 | | | degT Horizontal Tibbie:91 degT Wave Tibbie:68 degS-T Horizontal Tibbie:98 | | | degS-T Front Tibbie:103 degSeverity:- ABNORMAL ECG -INTERP:SINUS | | | RHYTHMINTERP:NONSPECIFIC IVCD WITH LADINTERP:INFERIOR INFARCT, | | | OLDElectronically signed by: ELIZABETH CAMPBELL 06-12-2018 11:25:24 | | |QTcB:480 ms | | |QTcF:467 ms | | |QRS Horizontal Tibbie:157 deg | | |QRS Tibbie:-77 deg | | |I-40 Horizontal Tibbie:75 deg | | |I-40 Front Tibbie:-59 deg | | |T-40 Horizontal Tibbie:240 deg | | |T-40 Front Tibbie:267 deg | | |T Horizontal Tibbie:91 deg | | |T Wave Tibbie:68 deg | | |S-T Horizontal Tibbie:98 deg | | |S-T Front Tibbie:103 deg | | |Severity:- ABNORMAL ECG - [...] + + + + + | [facility] | [address] | [place] | [phone] | + + + + + Magnesium (06/09/2018 0307) + + + +--------- --------+ | Component | Value | Ref Range | Performe d At | + + + +--------- --------+ | Magnesium | 2.1Comment: Performed | 1.7 - 2.4 mg/dL | [facility] | | | by [facility] [address], | | [place] | | | [place] | | [place] | | |Performed by [facility] [address], [place] | | [place] | | | | | [place] | + + + +--------- --------+ + + | Specimen | + + | Blood | + + + + + + + | Performing | Address | City/State/Zipcode | Phone Number | | Organization | | | | + + + + + | [facility] | [address] | [place] [address] | | | [facility] | | | | | [...] L | [facility] | | | by [facility] [address], | | [facility] | | | [place] [address] | | [facility] | | |Performed by [facility] [address], [place] [address] | | LABORATORY | | | | | C[facility]ER | + + + --+ + + + | Specimen | + + | Blood | + + + + + + + | Performing | Address | City/State/Zipcode | Phone Number | | Organization | | | | + + + + + | [facility] | [address] | [place] [address] | | | [facility] | | | | | [...] 0.82 | 0.50 - 1.00 mg/dL | [facility] [...] 76 (L)Comment: eGFR<60 | >=90 mL/min/1.73m2 | [facility] | | | consistent with impaired | | [facility] | | | kidney | | [facility]ENTER | | | function.Performed by | | LABORATORY | | | [facility] [address], | | [place] | | | [place] [address] | | | + + + + + + + | Specimen | + + | Blood | + + + + + + + | Performing | Address | City/State/Zipcode | Phone Number | | Organization | | | | + + + + + | [facility] | [address] | [place] [address] | | | [facility] | | | | | [...] | + +---------+ + + Troponin I (06/08/2018920) + + + + + | Component | Value | Ref Range | Performed At | + + + + + | Troponin I | 0.260 (AA)Comment: | 0.000 - 0.069 ng/mL | [facility] | | | Critical TRPI called to | | [facility] | | | and read back by LEANN Sandhu | [facility] | | | at 06/08/2018 10:03:33 | | LABORATORY | | | PDT by [place]. 0.070 - | | [facility] | | | 0.299 ng/ml, Low | [...] | | | | | TroponinPerformed by [facility] | | | | | [address], | | | | | [place] [address] | | | + + + + + + + | Specimen | + + | Blood | + + + + + + + | Performing | Address | City/State/Zipcode | Phone Number | | Organization | | | | + + + + + | [facility] | [address] | [place] [address] | | | [facility] | | | | | [place] | | | | + + + + + ECG 12 lead (06/08/2018 0430) + + + | Narrative | Performed At | + + + | HEART RATE:94 | [facility] | | bpmRR Interval:638 msAtrial Rate:95 msP-R Interval:148 msP | [facility] | | Duration:200 msP Horizontal Tibbie:19 degP Front Tibbie:58 degQ Onset:512 | | | msQRSD Interval:110 msQT Interval:404 msQTcB:506 msQTcF:469 msQRS | | | Horizontal Tibbie:184 degQRS Tibbie:265 degI-40 Horizontal Tibbie:78 degI-40 | | | Front Tibbie:269 degT-40 Horizontal Tibbie:240 degT-40 Front Tibbie:259 | | | degT Horizontal Tibbie:77 degT Wave Tibbie:63 degS-T Horizontal Tibbie:83 | | | degS-T Front Tibbie:99 degSeverity:- ABNORMAL ECG -INTERP:SINUS | | | RHYTHMINTERP:NONSPECIFIC IVCD WITH LADINTERP:INFERIOR INFARCT, | | | OLDElectronically signed by: ELIZABETH CAMPBELL 06-12-2018 11:24:43 | | |QTcB:506 ms | | |QTcF:469 ms | | |QRS Horizontal Tibbie:184 deg | | |QRS Tibbie:265 deg | | |I-40 Horizontal Tibbie:78 deg | | |I-40 Front Tibbie:269 deg | | |T-40 Horizontal Tibbie:240 deg | | |T-40 Front Tibbie:259 deg | | |T Horizontal Tibbie:77 deg | | |T Wave Tibbie:63 deg | | |S-T Horizontal Tibbie:83 deg | | |S-T Front Tibbie:99 deg | | |Severity:- ABNORMAL ECG - [...] + | [facility] | [address] | [place] [address] | [phone] | + + + + + Troponin I (06/08/2018315) + + + + + | Component | Value | Ref Range | Performed At | + + + + + | Troponin I | 0.311 (AA)Comment: | 0.000 - 0.069 ng/mL | [facility] | | | Critical troponin called | | [facility] | | | to and read back by | | [place] | | | luis soto at | [...] TroponinPerformed by | | | | | [facility] [address], | | | | | [place] [address] | | | + + + + + + + | Specimen | + + | Blood | + + + + + + + | Performing | Address | City/State/Zipcode | Phone Number | | Organization | | | | + + + + + | [facility] | [address] | [place] [address] | | | [facility] | | | | | LABORATORY [place] | | | | + + + + + Magnesium (06/08/2018315) + + + +--------- --------+ | Component | Value | Ref Range | Performe d At | + + + +--------- --------+ | Magnesium | 1.8Comment: Performed | 1.7 - 2.4 mg/dL | [facility] | | | by [facility] [address], | | [place] | | | [place] [address] | | [place] | | |Performed by [facility] [address], [place] [address] | | [place] | | | | | [place] | + + + +--------- --------+ + + | Specimen | + + | Blood | + + + + + + + | Performing | Address | City/State/Zipcode | Phone Number | | Organization | | | | + + + + + | [facility] | [address] | [place] [address] | | | [facility] | | | | | LABORATORY [place] | | | | + + + + + Renal Function Panel (06/08/20186) + + + + + | Component [...] 81 (L)Comment: eGFR<60 | >=90 mL/min/1.73m2 | [facility] | | | consistent with impaired | | [facility] | | | kidney | | MEDICAL CENTER | | | function.Performed by | | LABORATORY | | | [facility] [address], | | [place] | | | [place] [address] | | | + + + + + + + | Specimen | + + | Blood | + + + + + + + | Performing | Address | City/State/Zipcode | Phone Number | | Organization | | | | + + + + + | [facility] | [address] | [place] [address] | | | HEART [facility] | | | | | [place] [...] | and read back by 6S | [facility] | | | MATTI Herrera at [address]. | | LABORATORY | | | 0.070 [...] | | | | | TroponinPerformed by [facility] | | | | | [address], | | | | | [place] [address] | | | + + + + + + + | Specimen | + + | Blood | + + + + + + + | Performing | Address | City/State/Zipcode | Phone Number | | Organization | | | | + + + + + | [facility] | [address] | [place] [address] | | | [facility] | | | | | LABORATORY CERNER | | | | + + + + + Troponin I (06/07/2018 1626) + + + + + | Component | Value | Ref Range | Performed At | + + + + + | Troponin I | 0.307 (AA)Comment: | 0.000 - 0.069 ng/mL | [facility] | | | Critical TROP called to | | [facility] | | | and read back by 6S | | [place] | | | HECTOR Mcclain at 1710 [...] TroponinPerformed by | | | | | [facility] [address], | | | | | [place] [address] | | | + + + + + + + | Specimen | + + | Blood | + + + + + + + | Performing | Address | City/State/Zipcode | Phone Number | | Organization | | | | + + + + + | [facility] | [address] | [place] [address] | | | [facility] | | | | | LABORATORY [place] | | | | + + + + + CK Total with CK-MB (06/07/2018 1135) + + + + + | Component | Value | Ref Range | Performed At | + + + + + | CK TOTAL | 85 | 30 - 240 U/L | [facility] | | | | | [facility] | | | | | [facility]ENTER | | | | | LABORATORY | | | | | [facility] | + + + + + | CK-MB | 3.1 | 0.0 - 7.4 ng/mL | [facility] | | | | | [facility] | | | | | [facility]ICAL CENTER | | | | | LABORATORY | | | | | [facility] | + + + + + | CK-MB Index | 3.6 (H)Comment: | 0.0 - 3.1 % | [facility] | | | Performed by [facility] [address] | | [facility] | | | [address], [place] | | [place] | | | [address] | | LABORATORY | | | | | CERNER | + + + + + + + | Specimen | + + | Blood | + + + + + + + | Performing | Address | City/State/Zipcode | Phone Number | | Organization | | | | + + + + + | [facility] | [address] | [place] [address] | | | [facility] | | | | | LABORATORY C[facility] | | | | + + + + + XR Chest PA and Lateral (06/07/2018 0922) + + + | Narrative | Performed [...] | | | | Signed by: MD Chase, Kavon | | Sign Date/Time: 06/07/2018 9:27 AM | + + + +---------+ + + | Performing | Address | City/State/Zipcode | Phone Number | | Organization | | | | + +---------+ + + | [facility] | | | | + +---------+ + + Drugs of Abuse, Screen, Urine (06/07/2018913) + + + + + | Component [...] [facility] | | | | | [facility] | | | | | LABORATORY | | | | | [place] | + + + + + | Methadone Screen, | Negative | Negative | [facility] | | Urine | | | [facility] | | | | | [facility] | | | | | LABORATORY | | | | | CERNER | + + + + + | U Tox Comment | See CommentComment: | | [facility] | | | This entire battery is | | [facility] | | | for screening purposes | | MEDICAL CENTER | | | only. Results are not [...] | | | | | battery.Performed by [facility] | | | | | [address], | | | | | [place] [address] | | | + + + + + + + | Specimen | + + | Urine | + + + + + + + | Performing | Address | City/State/Zipcode | Phone Number | | Organization | | | | + + + + + | [facility] | [address] | [place] [address] | | | [facility] | | | | | [place] | | | | + + + + + Troponin I (06/07/2018 0910) + + + + + | Component | Value | Ref Range | Performed At | + + + + + | Troponin I | 0.305 (AA)Comment: | 0.000 - 0.069 ng/mL | [facility] | | | Critical [facility]PI called to | | [facility] | | | and read back by [facility] | | | TAYA Serrano at | | LABORATORY | | | 06/07/2018 09:53:45 PDT | | C[facility] | | | by [place]. >/= 0.300 | | | | | [...] | | | | | [place].Performed by [facility] [address] | | | [address] [place] | | | | | [address] | | | + + + + + + + | Specimen | + + | Blood | + + + + + + + | Performing | Address | City/State/Zipcode | Phone Number | | Organization | | | | + + + + + | [facility] | [address] | [place] [address] | | | [facility] | | | | | [place] | | | | + + + + + Myoglobin (06/07/2018909) + + + +----- + | Component | Value | Ref Range | Perf ormed At | + + + +----- + | MYOGLOBIN, SERUM | 69Comment: Performed by | 0 - 69 ng/mL | [facility] | | | [facility] [address], | | [facility] | | | [place] [address] | | [facility] | | |Performed by [facility] [address], [place] [address] | | LABO RATORY | | | | | CERN ER | + + + +----- + + + | Specimen | + + | Blood | + + + + + + + | Performing | Address | City/State/Zipcode | Phone Number | | Organization | | | | + + + + + | [facility] | [address] | [place], [place] | | | [facility] | | | | | LABORATORY [place] | | | | + + + + + Lipase (06/07/2018909) + + + + ----+ | Component | Value | Ref Range | Performed At | + + + + ----+ | Lipase | 32Comment: Performed by | 11 - 82 U/L | [facility] | | | [facility] [address], | | [facility] | | | [place] | | MEDICAL CENT ER | | |Performed by [facility] [address], [place] | | LABORATORY | | | | | [place] | + + + + ----+ + + | Specimen | + + | Blood | + + + + + + + | Performing | Address | City/State/Zipcode | Phone Number | | Organization | | | | + + + + + | [facility] | [address] | [place] [address] | | | [facility] | | | | | [place] | | | | + + + + + Comprehensive Metabolic Panel (06/07/201810) + + + + + | [...] 79 (L)Comment: eGFR<60 | >=90 mL/min/1.73m2 | [facility] | | | consistent with impaired | | [facility] | | | kidney | | [facility]ENTER | | | function.Performed by | | LABORATORY | | | [facility] [address], | | [place] | | | [place] [address] | | | + + + + + + + | Specimen | + + | Blood | + + + + + + + | Performing | Address | City/State/Zipcode | Phone Number | | Organization | | | | + + + + + | [facility] | [address] | [place] [address] | | | HEART [facility] | | | | | LABORATORY [place] | | | | + + + + + CBC with Differential (06/07/2018 0910) + + + --+ + | Component | Value | Ref Range | Performed At | + + + --+ + | WBC | 11.6 (H) | 3.8 - 11.0 K/uL | [facility] | | | | | [facility] | | | | | MEDICAL [...] L | [facility] | | | by [facility] [address], | | [facility] | | | [place], [place] | | [place] | | |Performed by [facility] [address], [place], [place] | | LABORATORY | | | | | CERNER | + + + --+ + + + | Specimen | + + | Blood | + + + + + + + | Performing | Address | City/State/Zipcode | Phone Number | | Organization | | | | + + + + + | [facility] | [address] | [place], [place] | | | [facility] | | | | | LABORATORY CERN[place] | | | | + + + + + Extra Hold Tube(s) (06/07/2018909) + + + + ---+ | Component | Value | Ref Range | Performed At | + + + + ---+ | Extra Tube | DrawnComment: Performed | | [facility] | | | by [facility] [address], | | [facility] | | | [place] [address] | | MEDICAL CENTE R | | |Performed by [facility] [address], [place] [address] | | LABORATORY | | | | | CERNER | + + + + ---+ + + | Specimen | + + | Blood | + + + + + + + | Performing | Address | City/State/Zipcode | Phone Number | | Organization | | | | + + + + + | [facility] | [address] | [place] [address] | | | [facility] | | | | | LABORATORY CERNER | | | | + + + + + CK Total (06/07/2018902) + + + + -----+ | Component | Value | Ref Range | Performed A t | + + + + -----+ | CK TOTAL | 84Comment: Performed by | 30 - 240 U/L | [facility] | | | [facility] [address], | | [place] | | | [place] | | MEDICAL [address] | | |Performed by [facility] [address], [place] | | LABORATORY | | | | | CERNER | + + + + -----+ + + | Specimen | + + | Blood | + + + + + + + | Performing | Address | City/State/Zipcode | Phone Number | | Organization | | | | + + + + + | [facility] | [address] | [place], [place] | | | [facility] | | | | | LABORATORY CERNER | | | | + + + + + Urinalysis with Microscopic with Culture if Indicated (06/07/2018902) + + + + + | Component [...] + + + + + | Specific [place] | 1.020 | 1.001 - 1.030 | [...] | | | submitted. Microscopi | | MEDICAL CENTER | | | c done on Unspun [...] URINE SOURCE | Clean catchComment: | | [facility] | | | Performed by [facility] [address] | | [facility] | | | [address] [place], [place] | | [place] | | | [address] | | LABORATORY | | | | [...] + | [facility] | [address] | [place] [address] | | | [facility] | | | | | LABORATORY [place] | | | | + + + + + ARRHYTHMIA MONITOR - EXTERNAL SCAN (06/07/2018) + + + | Narrative | Performed At | + + + | Ordered by an | | | unspecified provider. | | + + + in this encounter Visit Diagnoses Not on filein this encounter Admitting Diagnoses + + | [...] disease | + + Administered Medications + +--------+ +--------+------+------+ | Medication Order | MAR | Action | Dose | Rate | Site | | | Action | Date | | | | + +--------+ +--------+------+------+ | acetaminophen (TYLENOL) tablet | Given | 06/15/ | 650 mg | | | | 650 mg 650 mg, Oral, EVERY 6 | | 8 3:21 | | | | | HOURS (4 times per day), First | | PDT | | | | | dose on 06/13/18 at 0830 | | | | | | + +--------+ +--------+------+------+ +-------+ +--------+---+---+ | Given | | 650 [...] | | | | First dose on [facility] 06/11/18 at 2100 | | PDT | [...] PDT | | | | | Starting [facility] 06/11/18 at 1635, | | | | [...] heparin 1,000 units/mL 3,000 | Given | 06/11/2018 | | | Surgical | | Units in sodium chloride 0.9% | | 11:18 | | | Site | | (NS) 300 mL Optesia Mixture PRN, | | PDT | | | | | Starting [facility] 06/11/18 at 1118, | | | | [...] PDT | | | | | Starting [facility] 06/11/18 at 1635, | | | | [...] | papaverine injection PRN, | Given | 06/11/2018 | 180 mg | | Surgical | | Starting [facility] 06/11/18 at 1118, | | 11:18 | | | Site | | Intra-op | | PDT | | | | + +-------+ +--------+---+ + +---+---+ | | | +---+---+ + +-------+ +--------+---+---+ | senna (SENOKOT) tablet 8.6 mg | Given | 06/12/2018 | 8.6 mg | | | | 8.6 mg, Oral, 2 TIMES DAILY PRN, | | 4:59 | | | | | Constipation, Starting [facility] 06/11/18 | | PDT | | | [...] | vancomycin injection PRN, | Given | 06/11/2018 | 1,500 mg | | Surgical | | Starting [facility] 06/11/18 at 1120, | | 11:20 | | | Site | | Intra-op | | PDT | | | | + +-------+ + +---+ + +---+---+ | | | +---+---+ + +-------+ + +---+ + | vancomycin injection PRN, | Given | 06/11/2018 | 1,500 mg | | Surgical | | Starting [facility] 06/11/18 at 1120, | | 11:20 | | | Site | | Intra-op | | PDT | | | | + +-------+ + +---+ + +---+---+ | | | +---+---+ in this encounter
--- OUTSIDE RECORDS SUMMARY | ~2018-07-05 | XMS | Clinical Summary ---
Demographics + + + | Address | [address] | | | [place] [address] | + + + | Home Phone | | + + + | Preferred Language | Unknown | + + + | Marital Status | | + + + | Restorationist Affiliation | [id number] | + + + | Race | Unknown | + + + | Ethnic Group | Unknown | + + + Author + + + | Author | [facility] | | | and Ankitana | + + + | Organization | [facility] | | | and Ankitana [...] Team Providers + +------+ + | Care Field Operations Supervisor Name | Role | Phone | + +------+ + | Yolanda Lee | PP | | + +------+ + Allergies No Known Allergies Current Medications + + + +---------+------+------+-------+ | Prescription | Sig. | Disp. | Refills | Star | End | Statu | | | | | | t | Date | s | | | | | | Date | | | + + + +---------+------+------+-------+ | FLUoxetine | Take 20 mg by mouth | | | | | Activ | | (PROZAC) 20 mg | Daily. | | | | | e | | capsule | | | | | | | + + + +---------+------+------+-------+ | QUEtiapine | Take 100 mg by mouth | | | | | Activ | | (SEROQUEL) 100 mg | nightly. | | | | | e | | tablet | | | | | | | + + + +---------+------+------+-------+ | hydrOXYzine | Take 25 mg by mouth | | | | | Activ | | hydrochloride | nightly as needed | | | | | e | | (ATARAX) 25 mg | for Itching or | | | | | | | tablet | Anxiety. | | | | | | + + + +---------+------+------+-------+ | acetaminophen | Take 500 mg by mouth | | | | | Activ | | (Q-PAP) 500 mg | every 6 hours as | | | | | e | | tablet | needed for Pain. | | | | | | + + + +---------+------+------+-------+ | ergocalciferol | Take 50,000 Units by | | | | | Activ | | (VITAMIN D-2) 50,000 | mouth Once a week. | | | | | e | | units capsule | | | | | | | + + + +---------+------+------+-------+ | Multiple | Take 1 tablet by | 90 each | 3 | 11/2 | | Activ | | Vitamins-Minerals | mouth Daily. | | | 2/20 | | e | | (ADULT MULTIVITAMIN | | | | 16 | | | | WITH MINERALS/IRON) | | | | | | | | TABS | | | | | | | [...] + + +---------+------+------+-------+ | ondansetron | Take 1 tablet by | 20 | 0 | 07/2 | | Activ | | (ZOFRAN ODT) 8 mg | mouth every 8 hours | tablet | | 9/20 | | e | | disintegrating | as needed. | | | 17 | | | | tablet | | | | | | | + + + +---------+------+------+-------+ | dicyclomine | Take 1 tablet by | 20 | 0 | 07/2 | | Activ | | (BENTYL) 20 MG | mouth every 6 hours | tablet | | 9/20 | | e | | tablet | as needed (abdominal | | | 17 | | | | | pain/cramping). | | | | | | + + + +---------+------+------+-------+ | aspirin 325 MG EC | Take 1 tablet by | 30 | 0 | 09/1 | | Activ | | tablet | mouth Daily. | tablet | | 1/20 | | e | | | | | | 18 | | | + + + +---------+------+------+-------+ | carvedilol (COREG) | Take 0.5 tablets by | 30 | 0 | 09/1 | | Activ | | 6.25 mg tablet | mouth 2 times daily | tablet | | 0/20 | | e | | | (with breakfast & | | | 18 | | | | | dinner). | | | | | | + + + +---------+------+------+-------+ | docusate sodium | Take 100 mg by mouth | 30 | 0 | 09/1 | | Activ | | (COLACE) 100 MG | Twice daily as | capsule | | 0/20 | | e | | capsule | needed for | | | 18 | | | | | Constipation. | | | | | | + [...] + + +---------+------+------+-------+ | ibuprofen | Take 1 tablet by | 60 | 0 | 09/1 | | Activ | | (ADVIL,MOTRIN) 600 | mouth every 6 hours | tablet | | 0/20 | | e | | MG tablet | as needed for Pain. | | | 18 | | | + + + +---------+------+------+-------+ [...] | | + + + +---------+------+------+-------+ | oxyCODONE | Take 1 tablet by | 28 | 0 | 09/1 | | Activ | | (OXYCONTIN) 30 mg ER | mouth every 12 | tablet | | 0/20 | | e | | abuse-deterrent | hours. | | | 18 | | | | tablet | | | | | | | + + + +---------+------+------+-------+ | senna (SENOKOT) | Take 2 tablets by | 40 | 0 | 09/1 | | Activ | | 8.6 mg tablet | mouth Twice daily | tablet | | 0/20 | | e | | | as needed for | | | 18 | | | | | Constipation. | | | | | | + + + +---------+------+------+-------+ | atorvaSTATin | Take 1 tablet by | 30 | 0 | 09/1 | | Activ | | (LIPITOR) 40 mg | mouth nightly. | tablet | | 0/20 | | e | | tablet | | | | 18 | | | + + + +---------+------+------+-------+ | | Take 1 tablet by | 60 | 0 | 09/1 | | Activ | | oxyCODONE-acetaminop | mouth every 6 hours | tablet | | 0/20 | | e | | hen (PERCOCET) | as needed for Pain. | | | 18 | | | | 10-325 mg per | | | | | | | | tabletIndications: | | | | | | | | NSTEMI (non-ST | | | | | | | | elevated myocardial | | | | | | | | infarction) ([facility]), | | | | | | | | Polysubstance abuse | | | | | | | | ([facility]) | | | | | | | + + + +---------+------+------+-------+ | aspirin 81 mg EC | Take 81 mg by mouth | | | | 06/06 | Disco | | tablet | Daily. | | | | 0/20 | ntinu | | | | | | | 18 | ed | + + + +---------+------+------+-------+ | carvedilol (COREG) | Take 6.25 mg by | | | | 06/06 | Disco | | 6.25 mg tablet | mouth 2 times daily | | | | 0/20 | ntinu | | | (with breakfast & | | | | 18 | ed | | | dinner). | | | | | | + + + +---------+------+------+-------+ | lisinopril | Take 20 mg by mouth | | | | 09/1 | Disco | | (PRINIVIL, ZESTRIL) | Daily. | | | | 0/20 | ntinu | | 20 mg tablet | | | | | 18 | ed | + + + +---------+------+------+-------+ | atorvaSTATin | Take 1 tablet by | 30 | 11 | 08/07 | 06/06 | Disco | | (LIPITOR) 40 mg | mouth nightly. | tablet | | 2/20 | 0/20 | ntinu | | tablet | | | | 16 | 18 | ed | + + + +---------+------+------+-------+ Active Problems + + + | Problem | Noted Date | + + + | S/P CABG x 3 | 06/12/2018 | + + + + + | Overview: 06/11/18: 1. Coronary Artery Bypass Grafting x 3 | | , LITTLE-LAD, RSVG-OM2 and RSVG-PDA2. Endoscopicleft greater | | saphenous vein harvest Last Assessment & Plan: Status post | | three-vessel bypass grafting postop day #1Hemodynamic stable and | | [facility]-pain controlContinue medical | | therapy | + + + + + | Chest pain syndrome | 06/07/2018 | + + + + + | Last Assessment & Plan: 06/07/18 chest pain sounded esophageal. | | Abnormal troponin is not a surprise with methamphetamine and | | super high blood pressures. There is no evidence for an acute | | coronary syndrome, but she should undergo further risk | | stratification for her chronic cardiac disease. I'll get an | | echocardiogram tomorrow morning and a nuclear stress on Friday. | | Hopefully she can treadmill and if not then a walking Persantine | | nuclear. At this time I don't detect major decompensated | | congestive heart. Overall, the chest and abdominal complaints | | with diarrhea suggesting gastroenteritis of some sort. | + + + + + | Non-intractable vomiting with nausea | 06/07/2018 | + + + | Polysubstance abuse (HCC) | 06/07/2018 | + + + + + | Last Assessment & Plan: This contributes to the acute | | presentation especially with methamphetamine probably laced in | | her marijuana. She is counseled. | + + + + + | Chronic GERD | 06/07/2018 | + + + | [...] + + + + | Methamphetamine use ([facility]) | 06/07/2018 | + + + + [...] --------+ + + + | Heroin dependence ([facility]) | 02/22/2015 | + + + + [...] + + + + | Bipolar disorder (HCC) | 02/22/2015 | + + + + [...] + + | GILDARDO (acute kidney injury) ([facility]) | 02/22/2015 | + + + + [...] | + + + + + | Essential hypertension | 07/05/2013 | + + + + + | Last Assessment & Plan: Hypotensive to Normotensive on beta | | mateus alone.Continue at current beta mateus dose. | + + + + + | Ischemic cardiomyopathy | 07/05/2013 | + + + + + | Overview: Large Inferior posterior IN March 2012. Non STEMI | | June [...] | + + + + + | Tobacco abuse | 07/05/2013 | + + + + [...] | + + + + + | Dyslipidemia | 07/05/2013 | + + + + + | Last Assessment & Plan: On statin | + + Resolved Problems + + [...] | +--------+ + + + + | 06/29/ | Office | | Jayne Rayo | Status post three | | 2018 | Visit | | SALVATORE Barreto | vessel coronary | | | | | | artery bypass | | | | | | (Primary Dx) | +--------+ + + + + | 06/22/ | Telephone | | Shad Schuler, | Medication Question | | 2017 | | | MD | | +--------+ + + + + | 06/19/ | Telephone | | Hector Decker | Follow-up | | 2017 | | | ELIJAH Wong | | +--------+ + + + + | 06/11/ | Procedure | | | | | 2018 | Pass | | | | +--------+ + + + + | 06/11/ | Surgery | | Hemanth Webster | CORONARY ARTERY | | 2017 | | | MD Kenneth | BYPASS GRAFT X3 EVH | | | | | | JU | +--------+ + + + + | 06/10/ | Anesthesia | | Aba Sampson, | | | 2017 | Event | | MD | | +--------+ + + + + | 06/09/ | Procedure | | | | | 2018 | Pass | | | | +--------+ + + + + | 06/09/ | Surgery | | Shad Schuler, | CV Cor Angio | | 2017 | | | MD | | +--------+ + + + + | 06/07/ | Hospital | | Eh Carlisle, | S/P CABG x 3 | | 2018 - | Encounter | | Emma Posey I, | (Primary Dx); NSTEMI | | | | | Michael Erickson | (non-ST elevated | | 06/15/ | | | MD Lilliana | myocardial | | 2018 | | | Kathie Campbell, | infarction) (HCC); | | | | | Hemanth Del Valle | Methamphetamine | | | | | MD Kenneth | abuse; Opiate abuse, | | | | | | continuous; | | | | | | Marijuana abuse; | | | | | | Non-intractable | | | | | | cyclical vomiting | | | | | | with nausea; | | | | | | Esophagitis; Chest | | | | | | pain syndrome; ASHD | | | | | | (arteriosclerotic | | | | | | heart disease); | | | | | | Essential | | | | | | hypertension; | | | | | | Methamphetamine use; | | | | | | Marijuana use; | | | | | | Troponin level | | | | | | elevated; Ischemic | | | | | | cardiomyopathy; | | | | | | Chronic GERD; | | | | | | Elevated troponin | | | | | | level | +--------+ + + + + +---+ + | | Discharge | | | Summaries | | | - | | | Fannie, | | | Juancho Garcia, | | | [facility] CHEMIST - | | | 06/15/2018 | | | 1201 PDT | | | Formatting | | | of this | | | note may be | | | different | | | from the | | | original.[facility] | | | [facility] | | | [facility] | | | ischarge | | | | | | | | | NAME/AGE/DO | | | B: Anne Marie | | | Flakita Brown | | | 62 y.o. | | | female | | | (1955) | | | MRN: | | | [id number] | | | ADMISSION | | | DATE: | | | 06/07/2018 | | | Attending | | | Physician: | | | Hemanth Cooper | | | Webster, | | | MDAdmitting | | | Physician: | | | Emma I | | | Peffer, | | | MDNOTE TO | | | PROVIDERS: | | | New | | | medications | | | on | | | discharge | | | must be | | | refilled/ma | | | naged by | | | patient's | | | respective | | | providers. | | | Our office | | | does not | | | process | | | refill | | | requests.[facility] | | | [facility]ITAL | | | COURSE:4 | | | Days | | | Post-Op | | | | | | | | | | | | Hospital | | | Day: | | | 9Discharge | | | Plan:Percoc | | | et (#60) | | | prescribed | | | at | | | discharge. | | | Had been on | | | 12-hour as | | | well, but | | | could not | | | afford. I | | | anticipate | | | she'll need | | | refill | | | before her | | | 2-week | | | visit.1. | | | Follow-up | | | with PCP | | | recommended | | | within 1 | | | week.2. | | | Follow-up | | | with | | | surgery in | | | 2 weeks to | | | be sure her | | | sternal | | | dressing | | | has been | | | removed, | | | that pain | | | is being | | | appropriate | | | ly | | | controlled. | | | 3. | | | Cardiology | | | follow-up | | | in 1 | | | month.Brief | | | Summary of | | | Stay:Ms. | | | Brown was | | | admitted | | | with chest | | | pain that | | | was found | | | to be non | | | | | | ST-segment | | | elevation | | | myocardial | | | infarction. | | | She was | | | taken for | | | CABG on | | | 06/11/2018 | | | and has | | | progressed | | | well | | | despite | | | severe | | | post-op | | | pain | | | secondary | | | to history | | | of drug use | | | with high | | | opioid | | | needs. She | | | has been | | | receiving | | | 20 mg of | | | 12-hour | | | oxycodone + | | | 15 mg PRN | | | oxycodone | | | several | | | times per | | | day, and | | | also has | | | lidocaine | | | patch near | | | her sternal | | | incision. | | | Yesterday | | | she was in | | | severe | | | pain, | | | screaming | | | loudly | | | enough for | | | people on | | | the other | | | side of the | | | hallway to | | | hear; | | | today, her | | | pain is | | | better-cont | | | rolled. | | | Unfortunate | | | ly, 12-hour | | | oxycodone | | | isn't | | | covered by | | | insurance, | | | and she'll | | | be | | | discharged | | | on | | | oxycodone | | | 10 | | | tablets | | | #60, but I | | | anticipate | | | she'll be | | | taking 2-3 | | | of these | | | several | | | times per | | | day.I had a | | | long talk | | | with Ms. | | | Brown about | | | the | | | importance | | | of daily | | | showers and | | | sternal | | | precautions | | | . She was | | | recently | | | released | | | from residential | | | before | | | arriving at | | | the ER and | | | our social | | | worker has | | | confirmed | | | that she is | | | free to | | | discharge | | | home with | | | family | | | today. She | | | will be | | | staying | | | with her | | | sister.I | | | anticipate | | | that pain | | | control | | | will be her | | | biggest | | | post-discha | | | rge concern | | | and I've | | | discharged | | | her with a | | | significant | | | regimen of | | | long- and | | | short-actin | | | g | | | narcotics. | | | I've | | | stressed | | | the | | | importance | | | of close | | | PCP | | | follow-up | | | after | | | discharge | | | (scheduled | | | for | | | 06/23/2018), | | | and I've | | | schedule | | | her to see | | | us back for | | | a post-op | | | visit in 2 | | | weeks so | | | that we can | | | monitor | | | her | | | progress | | | closely, be | | | sure that | | | her sternal | | | tape has | | | been | | | removed, | | | and that | | | she is | | | showering | | | daily.Descr | | | iption of | | | Procedure | | | and Post-Op | | | CourseDATE | | | OF | | | PROCEDURE: | | | 06/11/2018 P | | | RE-OPERATIV | | | E | | | DIAGNOSIS: | | | 1. | | | Coronary | | | artery | | | disease2. | | | Hypertensio | | | n3. | | | Hyperlipide | | | mia4. | | | History of | | | drug | | | abuse PROC | | | EDURE | | | PERFORMED: | | | 1. Coronary | | | Artery | | | Bypass | | | Grafting x | | | 3 , | | | LITTLE-LAD, | | | RSVG-OM2 | | | and | | | RSVG-PDA2. | | | Endoscopicl | | | eft greater | | | saphenous | | | vein | | | harvest Huggins | | | rgeon(s) | | | and Role: | | | * Hemanth | | | Kenneth | | | Webster, MD | | | - Primary | | | * Cornelius L | | | Paul, [place] | | | - PA - | | | Assisting | | | * | | | Tisha | | | Odette | | | Broussard, | | | PA-C - [place] - | | | | | | AssistingBl | | | ood | | | Products | | | During | | | Admission:R | | | BCs: 1 | | | unit(s).FFP | | | : 0 | | | unit(s).Ness | | | telets: 0 | | | unit(s).Cry | | | oprecipitat | | | e: 0 | | | unit(s). | | | Discharge | | | Diagnoses:A | | | ctive | | | Hospital | | | Problems | | | Diagnosis | | | Date Noted | | | | | | Status | | | post three | | | vessel | | | coronary | | | artery | | | bypass | | | 06/12/2018 | | | Priority: | | | High | | | Chest | | | pain | | | syndrome | | | 06/07/2018 | | | | | | | | | Non-intract | | | able | | | vomiting | | | with nausea | | | 06/07/2018 | | | | | | | | | Polysubstan | | | ce abuse | | | 06/07/2018 | | | | | | Chronic | | | GERD | | | 06/07/2018 | | | | | | Elevated | | | troponin | | | level | | | 06/07/2018 | | | | | | | | | Methampheta | | | mine use | | | 06/07/2018 | | | | | | ASHD | | | (arterioscl | | | erotic | | | heart | | | disease) | | | 07/05/2013 | | | | | | Essential | | | | | | hypertensio | | | n | | | 07/05/2013 | | | | | | Tobacco | | | abuse | | | 07/05/2013 | | | | | | Ischemic | | | cardiomyopa | | | thy | | | 07/05/2013 | | | Resolved | | | Hospital | | | Problems | | | Diagnosis | | | Date Noted | | | Date | | | Resolved | | | Stress | | | hyperglycem | | | ia | | | 06/12/2018 | | | 06/14/2018 | | | Last | | | Vitals:Puls | | | e: 76BP: | | | 124/80Resp: | | | 16 on | | | SpO2: 93 % | | | on room | | | airTemp: | | | 36.2 C | | | (97.1 | | | F)Last | | | Weight: Wt | | | Readings | | | from Last 3 | | | | | | Encounters: | | | 06/14/18 | | | 71.8 kg | | | (158 lb 3.2 | | | oz) | | | 05/03/17 | | | 63.5 kg | | | (140 lb) | | | 12/26/16 68 | | | kg (150 | | | lb) | | | Telemetry:n | | | ormal sinus | | | PHYSICAL | | | EXAMConstit | | | utional - | | | Alert and | | | oriented. | | | Chronically | | | | | | ill-appeari | | | ng but in | | | no acute | | | distress.HE | | | ENT - | | | Normocephal | | | ic/atraumat | | | ic. Sclerea | | | are white, | | | | | | conjunctiva | | | e are pink | | | and moist. | | | Nares are | | | patent. | | | Trachea is | | | midline. | | | Oral mucosa | | | is pink | | | and | | | moist.Cardi | | | ovascular - | | | Regular | | | rate and | | | rhythm with | | | normal | | | S1/S2. No | | | murmur, | | | rub, or | | | gallop.Resp | | | iratory - | | | Lung sounds | | | are clear | | | to | | | auscultatio | | | n | | | bilaterally | | | . Chest | | | excursion | | | is | | | symmetrical | | | without | | | the use of | | | accessory | | | muscles.GI | | | - Possitive | | | bowel | | | sounds. | | | Soft and | | | non-tender. | | | Extremities | | | - Distal | | | pulses are | | | 2+. Distal | | | extremities | | | are pink | | | and warm. | | | No | | | significant | | | lower | | | extremity | | | edema.Neuro | | | logic - No | | | focal | | | deficits.Op | | | erative | | | Sites: - | | | Midsternal | | | incision: | | | Well-approx | | | imated | | | without | | | significant | | | erythema | | | or | | | drainage. | | | - Chest | | | tube sites: | | | Chest tube | | | insertion | | | sites are | | | clean and | | | dry. - | | | EVH sites: | | | clean, dry, | | | and | | | well-approx | | | imatedRecen | | | t Labs | | | 06/15/18 | | | 0923 | | | 06/13/18 | | | 0402 WBC | | | 13.9* | | | 11.8* HCT | | | 28.8* | | | 30.7* PLT | | | 231 192 NA | | | 136 137 | | | K 4.6 4.6 | | | CL 100 | | | 103 CO2 26 | | | 27 BUN | | | 47* 27* | | | CREA 1.47* | | | 1.12* GLU | | | 135* | | | 146* | | | CALCIUM | | | 8.7 8.0* | | | HgbA1c | | | Values | | | 06/10/2018 | | | | | | 6:55 | | | HgbA1c | | | 5.5 | | | Comment | | | for HgbA1c | | | at 6:55 on | | | 06/10/2018: | | | The ADA | | | recommends | | | A1C values | | | of less | | | than 7% as | | | the goal | | | for | | | diabetic | | | therapy. | | | Discharge | | | Medications | | | : | | | Discharge | | | Medications | | | New | | | Medications | | | Details | | | docusate | | | sodium 100 | | | MG capsule | | | Take 100 mg | | | by mouth | | | Twice | | | daily as | | | needed for | | | Constipatio | | | n.aka: | | | COLACE | | | ferrous | | | sulfate 325 | | | mg tablet | | | Take 1 | | | tablet by | | | mouth 2 | | | times daily | | | (with | | | breakfast & | | | dinner). | | | ibuprofen | | | 600 MG | | | tablet Take | | | 1 tablet | | | by mouth | | | every 6 | | | hours as | | | needed for | | | Pain.aka: | | | ADVIL,MOTRI | | | N LORazepam | | | 1 mg | | | tablet Take | | | 1 tablet | | | by mouth | | | every 6 | | | hours as | | | needed for | | | Anxiety.aka | | | : ATIVAN | | | oxyCODONE | | | 30 mg ER | | | abuse-deter | | | rent tablet | | | Take 1 | | | tablet by | | | mouth every | | | 12 | | | hours.aka: | | | oxyCONTIN | | | oxyCODONE-a | | | cetaminophe | | | n 10-325 mg | | | per tablet | | | Take 1 | | | tablet by | | | mouth every | | | 6 hours as | | | needed for | | | Pain.aka: | | | PERCOCET | | | senna 8.6 | | | mg tablet | | | Take 2 | | | tablets by | | | mouth Twice | | | daily as | | | needed for | | | Constipatio | | | n.aka: | | | SENOKOT | | | Changed | | | Medications | | | Details | | | aspirin | | | 325 MG EC | | | tablet Take | | | 1 tablet | | | by mouth | | | Daily.What | | | changed: | | | medication | | | strength | | | how much to | | | take | | | carvedilol | | | 6.25 mg | | | tablet Take | | | 0.5 | | | tablets by | | | mouth 2 | | | times daily | | | (with | | | breakfast & | | | | | | dinner).Wha | | | t changed: | | | how much | | | to takeaka: | | | COREG | | | Unchanged | | | Medications | | | Details | | | adult | | | multivitami | | | n with | | | minerals/ir | | | on Tabs | | | Take 1 | | | tablet by | | | mouth | | | Daily. | | | atorvaSTATi | | | n 40 mg | | | tablet Take | | | 1 tablet | | | by mouth | | | nightly.aka | | | : LIPITOR | | | calcium-vit | | | palacio D 500 | | | mg-200 | | | units per | | | tablet Take | | | 2 tablets | | | by mouth 3 | | | times daily | | | (with | | | meals).aka: | | | OSCAL | | | dicyclomine | | | 20 MG | | | tablet Take | | | 1 tablet | | | by mouth | | | every 6 | | | hours as | | | needed | | | (abdominal | | | pain/crampi | | | ng).aka: | | | BENTYL | | | ergocalcife | | | rol 50,000 | | | units | | | capsule | | | Take 50,000 | | | Units by | | | mouth Once | | | a week.aka: | | | VITAMIN | | | D-2 | | | FLUoxetine | | | 20 mg | | | capsule | | | Take 20 mg | | | by mouth | | | Daily.aka: | | | PROzac | | | hydrOXYzine | | | | | | hydrochlori | | | de 25 mg | | | tablet Take | | | 25 mg by | | | mouth | | | nightly as | | | needed for | | | Itching or | | | Anxiety.aka | | | : ATARAX | | | ondansetron | | | 8 mg | | | disintegrat | | | ing tablet | | | Take 1 | | | tablet by | | | mouth every | | | 8 hours as | | | | | | needed.aka: | | | ZOFRAN | | | ODT | | | Polysacchar | | | chris Iron | | | Complex 50 | | | MG Caps | | | Take 1 | | | capsule by | | | mouth 3 | | | times daily | | | (with | | | meals). | | | Q-PAP 500 | | | mg | | | tabletGener | | | ic drug: | | | acetaminoph | | | en Take 500 | | | mg by | | | mouth every | | | 6 hours as | | | needed for | | | Pain. | | | QUEtiapine | | | 100 mg | | | tablet Take | | | 100 mg by | | | mouth | | | nightly.aka | | | : SEROquel | | | | | | Discontinue | | | d | | | Medications | | | | | | lisinopril | | | 20 mg | | | tabletaka: | | | PRINIVIL, | | | ZESTRIL | | | Discharged | | | Condition: | | | goodConsult | | | s: - | | | Diabetic | | | services | | | for blood | | | glucose | | | management. | | | - | | | Physical | | | and | | | occupationa | | | l therapy | | | for post-op | | | rehab. - | | | [place] | | | Cardiology. | | | Disposition | | | : Home with | | | family. | | | Patient was | | | advised to | | | call our | | | office or | | | their | | | cardiologis | | | t with any | | | questions.F | | | ollow-Up:Fo | | | llow-up | | | Information | | | [place] | | | A | | | Rosa, | | | [facility] CHEMIST. Go | | | on | | | 06/23/2018. | | | Specialty: | | | Nurse | | | Practitione | | | rWhy: | | | Hospital | | | follow up | | | scheduled | | | at 11:05 | | | with Dr | | | [facility] | | | ct | | | information | | | :[address] | | [address] | | | [place] | | | [phone] | | [phone] | | | Hemanth G. | | | MD Eleanor. | | | Schedule | | | an | | | appointment | | | as soon as | | | possible | | | for a visit | | | on | | | 06/29/2018. | | | Specialty: | | | | | | Cardiothora | | | cic | | | SurgeryWhy: | | | 11:30 | | | AMContact | | | information | | | :[address] [place] | | | [address] | | | [place] | | | [phone] | | | [phone] | | | Schedule | | | an | | | appointment | | | as soon as | | | possible | | | for a visit | | | with [facility] | | | [facility] | | [facility] | | | [facility]. | | | Why: | | | Please call | | | to | | | schedule | | | your 1 | | | month | | | follow-up | | | with | | | cardiology. | | | Contact | | | information | | | :[address] | | [address] | | | [address] | | | [place] | | | [phone] | | | Time | | | spent on | | | discharge | | | planning: | | | greater | | | than 30 | | | minutesCABG | | | | | | ChecklistAC | | | EI/ARB/ARNI | | | | | | prescribed: | | | No - | | | Hypotension | | | Aspirin | | | prescribed: | | | Not | | | addressed | | | Beta | | | mateus | | | (evidence-b | | | ased) | | | prescribed: | | | Yes Beta | | | mateus | | | prescribed: | | | N/A - LV | | | EF is less | | | than 41% | | | High | | | intensity | | | statin | | | prescribed: | | | Yes | | | Referral to | | | cardiac | | | rehab: Yes | | | Tobacco | | | cessation | | | counseling | | | provided: | | | Yes | | | Electronica | | | lly signed | | | by: Juancho Chance | | | Brsimbamann, | | | BENCH CHEMIST on | | | 06/15/2018 | | | at | | | 12:16[facility] | | | [address] | | [address], [place] | | | [address], | | | [place] | | | [address]Yyrsm: | | | | | | [phone] | | | 2Fax: | | | [phone] | | | 8Portions | | | of this | | | chart may | | | have been | | | created | | | with Dragon | | | voice | | | recognition | | | software. | | | Occasional | | | wrong-word | | | or | | | | | | sound-alike | | | | | | | | | substitutio | | | ns may have | | | occurred | | | due to the | | | inherent | | | limitations | | | of voice | | | recognition | | | software. | | | Please read | | | the chart | | | carefully | | | and | | | recognize, | | | using | | | context, | | | where these | | | | | | substitutio | | | ns have | | | occurred.Pa | | | tient Care | | | Team:Vinett | | | a A | | | Rosa, | | | BENCH CHEMIST as | | | PCP - | | | General | | | (Nurse | | | Practitione | | | r)Mani K | | | MD Jennie as | | | Physician | | | (Cardiology | | | ) | | | Discharge | | | Summaries - | | | Raver, | | | Chance W, | | | RN - | | | 06/15/2018 | | | 1557 PDT | | | Brinkmann, | | | BENCH CHEMIST saw | | | the patient | | | this | | | 06/15/18 and | | | confirmed | | | discharge | | | at 1200. | | | Chance, RN | | | and Stephanie, | | | RN | | | completed | | | the | | | discharge | | | instruction | | | s. The | | | patient | | | will be | | | getting | | | their new | | | RXs filled | | | at home | | | preferred | | | pharmacy. | | | Unable to | | | fill | | | prescriptio | | | ns before | | | pharmacy | | | closed. | | | Pharmacist | | | notified | | | and gave | | | patient | | | number for | | | [facility] | | | pharmacy to | | | transfer | | | medications | | | in AM. | | | Given night | | | time pain | | | medications | | | prior to | | | leaving. | | | The AVS was | | | reviewed | | | with | | | patient and | | | family | | | with no | | | pending | | | questions | | | or | | | concerns. | | | All | | | belongings | | | were | | | collected | | | from the | | | room and | | | sent with | | | the family. | | | The pt is | | | discharging | | | home with | | | family in | | | [place]. New | | | FWW sent | | | with | | | patient. No | | | further | | | questions | | | and all | | | teaching | | | demonstrate | | | d back to | | | RN. Plan | | | for d/c at | | | 1800 when | | | family | | | arrives. | +---+ + from Last 3 Months Immunizations + + + + | Name | Dates Previously Given | Next Due | + + + + | INFLUENZA PF 17 Y OR | 12/27/2014 | | | >,TRIVALENT | | | | RECOMBINANT | | | + + + + | INFLUENZA, | 08/19/2016 | | | UNSPECIFIED | | | | FORMULATION | | | + + + + Family [...] on file | | + + + Last Filed Vital Signs + + + + | Vital Sign | Reading | Time Taken | + + + + | Blood Pressure | 119/76 | 06/29/2018947 PDT | + + + + | Pulse | 88 | 06/29/2018947 PDT | + + + + | Temperature | 36.7 C (98 F) | 06/15/20181541 PDT | + + + + | Respiratory Rate | 18 | 06/15/2018 1542 PDT | + + + + | Oxygen Saturation | 96% | 06/29/201848 PDT | + + + + | [...] 06/14/20181999 PDT | + + + + Plan of Treatment +--------+---------+ + + + | Date | Type | Specialty | Care Team | Description | +--------+---------+ + + + | 07/15/ | Office | | Kylie Shields, | | | 2018 | Visit | | GABRI[address] [facility] [place] | | | | | | [place], | | | | | | [place] [address] | | | | | | [phone] | | | | | | | | +--------+---------+ + + + + + + + + | Health Maintenance | Due Date | Last Done | Comments | + + + + + | Vaccine: | | | | | Dtap/Tdap/Td (1 - | 3 | | | | Tdap) | | | | + + + + + | Vaccine: | | | | | Pneumococcal 19-64 | 3 | | | | (PPSV23 only) Medium | | | | | Risk (1 of 1 - | | | | | PPSV23) | | | | + + + + + | BREAST CANCER | | | | | SCREENING (MAMM Q2 | 4 | | | | YEARS 50-74) | | | | + + + + + | Colorectal Cancer | | | | | Screening | 4 | | | | (Colonoscopy) | | | | + + + + + | Vaccine: Zoster (1 | | | | | of 2) | 4 | | | + + + + + | Vaccine: Influenza | | 08/19/2016, 12/27/2014 | | | (#1) | 8 | | | + + + + + | Hepatitis C | Completed | 06/10/2018, 06/10/2018 | | | Screening | | | | + + + + + Implants + +--------+------+ +--------+--------+--------+ | Implanted | Type | Area | Manufacture | Device | Expira | Model | | | | | r | | tion | / | | | | | | Identi | Date | Serial | | | | | | fier | | / Lot | + +--------+------+ +--------+--------+--------+ | Marker Sheryl Rios - | Generi | | GENESSE | | 09/16/ | AMGM-S | | [id number]: Qty: 2 | c | | BIOMEDICAL | | 2020 | D / / | | on 06/11/2018 by Eleanor, | | | - JALEN | | | | | Hemanth Cooper MD | | | | | | | + +--------+------+ +--------+--------+--------+ Procedures + +--------+ + + + [...] for this | | | e | 626 PDT | | procedure are in the | | | | | | results section. | + +--------+ + + + | POC GLUCOSE | Routin | 06/14/2018 | | Results for this | | | e | 230 PDT | | procedure are in the | | | | | | results section. | + +--------+ + + + | POC GLUCOSE | Routin | 06/13/2018 | | Results for this | | | e | 2038 PDT | | procedure are in the [...] Results for this | | | | 2300 PDT | | procedure are in the | | | | | | results section. | + +--------+ + + + | BLOOD GAS, ARTERIAL | STAT | 06/11/2018 | | Results for this | | | | 230 PDT | | procedure are in the | | | | | | results section. | + +--------+ + + + | POC GLUCOSE | Routin | 06/11/2018 | | Results for this | | | e | 6 PDT | | procedure are in the [...] for this | | | e | 1851 PDT | | procedure are in the [...] | + +--------+ + + + | ANE CENTRAL VENOUS | Routin | 06/11/2018 | | Results for this | | QUAD LUMEN NOTE | e | 1149 PDT | | procedure are in the | | | | | | results section. | + +--------+ + + + | ANE ARTERIAL LINE | Routin | 06/11/2018 | | Results for this | | NOTE | e | 1137 PDT | | procedure are in the | | | | | | results section. | + +--------+ + + + | ANE AIRWAY NOTE | Routin | 06/11/2018 | | Results for this | | | e | 1111 PDT | | procedure are in the [...] results section. | + +--------+ +---+ + from Last 3 Months Results CBC no Differential (06/15/2018922)Only the most recent of 5 results within the time destinee od is included. + + + + + | Component [...] [facility] | | | | | [facility] | | | | | LABORATORY | | | | | [facility] | + + + + + | Platelet Count | 231 | 150 - 400 K/uL | [facility] | | | | | [facility] | | | | | [facility] | | | | | LABORATORY | | | | | [facility] | + + + + + | MPV | 7.2 (L)Comment: | 7.5 - 11.2 fL | [facility] | | | Performed by [facility] [address] | | [facility] | | | [place] | | [facility] | | | [address] | | LABORATORY | | | | | CERN[facility] | + + + + + + + | Specimen | + + | Blood | + + + + + + + | Performing | Address | City/State/Zipcode | Phone Number | | Organization | | | | + + + + + | [facility] | [address] | [place] [address] | | | [facility] | | | | | LABORATORY [place] | | | | + + + + + Basic Metabolic Panel (06/15/2018 0923)Only the most recent of 6 results within the time paul nowak is included. + + + + + | Component [...] by | | LABORATORY | | | [facility] [address], | | [place] | | | [place] [address] | | | + + + + + + + | Specimen | + + | Blood | + + + + + + + | Performing | Address | City/State/Zipcode | Phone Number | | Organization | | | | + + + + + | [facility] | [address] | [place] [address] | | | [facility] | | | | | LABORATORY [place] [...] Red Blood Cells (PRBC) - Crossmatch (06/15/2018 0353)Only the most recent of 2 results with in the time period is included. + + + + + | Component | Value | Ref Range | Performed At | + + + + + | Product Code | [id number] | | [facility] | | | | | [place] | | | | | [facility] | | | | [facility] | + + + + + | UNIT # | [id number] | | [facility] | | | | | [place] | | | | | [facility] | | | | [facility] | + + + + + | UNIT ABO | O | | [facility] LAB | | | | | [facility] [facility] | | | | | [facility] | | | | | [facility] | + + + + + | UNIT RH | NEG | | REFERENCE LAB | | | | | [facility] [facility] | | | | | [facility] | | | | | [facility] | + + + + + | CROSSMATCH INTERP | Compatible | | [facility] | | | | | [place] [facility] | | | | | [facility] | | | | | [facility] | + + + + + | Unit Status | RE | | [facility] | | | | | [facility] [facility] | | | | | [facility] | | | | [facility] | + + + + + | Blood Product | [id number] | | [facility] | | Expiration Date and | | | [facility] [facility] | | Time | | | [facility] | | | | | [facility] | + + + + + | Product Blood Type | 9500 | | [facility] | | Barcode | | | [facility] [facility] | | | | | [facility] | | | | | [facility] | + + + + + + + + | Narrative | Performed At | + + + | Specimen Expiration Date: [id number] | [facility] | | | [place] [facility] | | | [facility] | + + + + + + + + | Performing | Address | City/State/Zipcode | Phone Number | | Organization | | | | + + + + + | [facility] | [address] | [place] [address] | [phone] | | [facility] | | | | | [facility] | | | | | [facility] | | | | + + + + + POC Glucose (06/14/2018 1627)Only the most recent of 26 results within the time period is i ncluded. + + + + + | Component | Value | Ref Range | Performed At | + + + + + | Glucose, POC | 127 (H)Comment: | 65 - 99 mg/dL | [facility] | | | Performed by [facility] [address] | | [facility] | | | [place] | | MEDICAL [facility]ENTER | | | [address] | | LABORATORY | | | | | [place] | + + + + + + + | Specimen | + + | Blood | + + + + + + + | Performing | Address | City/State/Zipcode | Phone Number | | Organization | | | | + + + + + | [facility] | [address] | [place] [address] | | | [facility] | | | | | LABORATORY [place] | | | | + + + + + XR Chest AP Portable (06/13/2018 0622)Only the most recent of 3 results within the time per iod is included. + + + | Narrative | Performed [...] by: MD Upton Paula Sign Date/Time: 06/13/2018 | | | 6:46 [...] + +---------+ + + ECG 12 lead (06/12/2018311)Only the most recent of 5 results within the time period is in cluded. + + + | Narrative | Performed At | + + + | HEART RATE:60 | [facility] | | bpmRR Interval:1000 msAtrial Rate:61 msP-R Interval:176 msP | [facility] | | Duration:184 msP Horizontal Savoy:5 degP Front Savoy:55 degQ Onset:508 | | | msQRSD Interval:104 msQT Interval:452 msQTcB:452 msQTcF:452 msQRS | | | Horizontal Savoy:129 degQRS Savoy:-53 degI-40 Horizontal Savoy:77 degI-40 | | | Front Savoy:-44 degT-40 Horizontal Savoy:204 degT-40 Front Savoy:-83 | | | degT Horizontal Savoy:95 degT Wave Savoy:39 degS-T Horizontal Savoy:79 | | | degS-T Front [place]oy:49 degSeverity:- ABNORMAL ECG -INTERP:SINUS | | | RHYTHMINTERP:CONSIDER RIGHT VENTRICULAR HYPERTROPHYINTERP:PROBABLE | | | INFERIOR INFARCT, AGE INDETERMINATEINTERP:BORDERLINE ST ELEVATION, | | | ANTERIOR LEADSElectronically signed by: ELIZABETH CAMPBELL 06-12-2018 | | | 07:37:14 | | |QRS Horizontal Savoy:129 deg | | |QRS Savoy:-53 deg | | |I-40 Horizontal Savoy:77 deg | | |I-40 Front Savoy:-44 deg | | |T-40 Horizontal Savoy:204 deg | | |T-40 Front Savoy:-83 deg | | |T Horizontal Savoy:95 deg | | |T Wave Savoy:39 deg | | |S-T Horizontal Savoy:79 deg | | |S-T Front Savoy:49 deg | | |Severity:- ABNORMAL ECG - [...] + | [facility] | [address] | [place] [address] | [phone] | + + + + + Glucose, Respiratory (06/11/20182300)Only the most recent of 2 results within the time per iod is included. + + + + + | Component | Value | Ref Range | Performed At | + + + + + | GLUCOSE | 112 (H)Comment: | 65 - 99 mg/dL | [facility] | | | Performed by [facility] [address] | | [facility] | | | [address], [place] | | [facility] | | | [address] | | LABORATORY | | | | | [place] | + + + + + + + | Specimen | + + | Blood | + + + + + + + | Performing | Address | City/State/Zipcode | Phone Number | | Organization | | | | + + + + + | [facility] | [address] | [place] [address] | | | [facility] | | | | | [place] | | | | + + + + + Blood Gas, Arterial (06/11/2018 2301)Only the most recent of 2 results within the time destinee od is included. + + + ----+ + | Component [...] % | [facility] | | | by [facility] [address], | | [facility] | | | [place] [address] | | MEDICAL CENTER | | |Performed by [facility] [address], [place] [address] | | LABORATORY | | | | | [place] | + + + ----+ + + + | Specimen | + + | Blood - Artery | + + + + + + + | Performing | Address | City/State/Zipcode | Phone Number | | Organization | | | | + + + + + | [facility] | [address] | [place] [address] | | | [facility] | | | | | LABORATORY [place] | | | | + + + + + Potassium Whole Blood (06/11/2018 2301) + + + + + | Component | Value | Ref Range | Performed At | + + + + + | K | 5.4 (H)Comment: | 3.5 - 5.0 mmol/L | [facility] | | | Performed by [facility] [address] | | [facility] | | | [place] | | [facility] | | | [address] | | LABORATORY | | | | | [place] | + + + + + + + | Specimen | + + | Blood | + + + + + + + | Performing | Address | City/State/Zipcode | Phone Number | | Organization | | | | + + + + + | [facility] | [address] | [place], [place] | | | [facility] | | | | | LABORATORY [place] | | | | + + + + + Potassium (06/11/20181957) + + + +-------- ---------+ | Component | Value | Ref Range | Perform ed At | + + + +-------- ---------+ | K | 3.9Comment: Performed | 3.5 - 5.0 mmol/L | [facility] | | | by [facility] [address], | | [facility] | | | [place], [place] | | [facility] | | |Performed by [facility] [address], [place], [place] | | LABORAT [place] | | | | | [place] | + + + +-------- ---------+ + + | Specimen | + + | Blood | + + + + + + + | Performing | Address | City/State/Zipcode | Phone Number | | Organization | | | | + + + + + | [facility] | [address] | [place] [address] | | | [facility] | | | | | [place] | | | | + + + + + PTT (06/11/2018 1637)Only the most recent of 6 results within the time period is included. + + + + + | Component [...] | | | seconds.Performed by [facility] | | | | | [address], | | | | | [place] [address] | | | + + + + + + + | Specimen | + + | Blood | + + + + + + + | Performing | Address | City/State/Zipcode | Phone Number | | Organization | | | | + + + + + | [facility] | [address] | [place] [address] | | | [facility] | | | | | LABORATORY [place] | | | | + + + + + Protime INR (06/11/2018 1637)Only the most recent of 3 results within the time period is in cluded. + + + + + | Component | Value | Ref Range | Performed At | + + + + + | Protime | 14.6 (H) | 12.0 - 14.2 sec | [facility] | | | | | [facility] | | | | | [facility] | | | | | LABORATORY | | | | | [place] | + + + + + | INR | 1.2 (H)Comment: Usual | 0.9 - 1.1 | [facility] | | | oral anticoagulant | | [facility] | | | range: 2.0 to 3.0 High | | [facility] | | | level oral | | LABORATORY | | | anticoagulant range: 2.5 | | [facility] | | | to 3.5Performed by [facility] | | | | | [address] [place] [address] [place], | | | | | [place] [address] | | | + + + + + + + | Specimen | + + | Blood | + + + + + + + | Performing | Address | City/State/Zipcode | Phone Number | | Organization | | | | + + + + + | [facility] | [address] | [place] [address] | | | [facility] | | | | | LABORATORY [place] | | | | + + + + + Comprehensive Metabolic Panel (06/11/2018 3334)Only the most recent of 2 results within the time period is included. + + + + + | Component [...] 0.4 | 0.2 - 1.1 mg/dL | [facility] | | | | | [facility] | | | | | [facility] | | | | | LABORATORY | | | | | [place] | + + + + + | Estimated GFR | 55 (L)Comment: eGFR<60 | >=90 mL/min/1.73m2 | [facility] | | | consistent with impaired | | [facility] | | | kidney | | MEDICAL CENTER | | | function.Performed by | | LABORATORY | | | [facility] [address], | | [place] | | | [place] [address] | | | + + + + + + + | Specimen | + + | Blood | + + + + + + + | Performing | Address | City/State/Zipcode | Phone Number | | Organization | | | | + + + + + | [facility] | [address] | [place] [address] | | | [facility] | | | | | [place] | | | | + + + + + Lactic Acid, Arterial, Respiratory (06/11/2018 1636) + + + + + | Component | Value | Ref Range | Performed At | + + + + + | Lactate, Arterial | 1.0Comment: Performed | 0.5 - 1.6 mmol/L | [facility] | | | by [place] [address], | | [facility] | | | [place] [address] | | [facility] | | |Performed by [facility] [address], [place] [address] | | LABORATORY | | | | | [place] | + + + + + + + | Specimen | + + | Blood | + + + + + + + | Performing | Address | City/State/Zipcode | Phone Number | | Organization | | | | + + + + + | [facility] | [address] | [place] [address] | | | [facility] | | | | | LABORATORY [place] | | | | + + + + + Calcium, Ionized, Respiratory (06/11/2018 1636) + + + + + | Component | Value | Ref Range | Performed At | + + + + + | Calcium, Ionized | 5.09 | 4.75 - 5.30 mg/dL | [facility] | | (mg/dL) | | | [facility] | | | | | [facility]ICAL [facility]ENTER | | | | | LABORATORY | | | | | [place] | + + + + + | Calcium, pH | 5.06Comment: Performed | 4.75 - 5.30 mg/dL | [facility] | | Normalized | by [facility] [address], | | [facility] | | | [place] [address] | | [facility] | | |Performed by [facility] [address], [place] [address] | | LABORATORY | | | | [...] [address] | [place] [address] | | | [facility] | | | | | LABORATORY [place] | | | | + + + + + Lactic Acid, Arterial, Surgery (06/11/2018 1525)Only the most recent of 6 results within e time period is included. + + + + + | Component | Value | Ref Range | Performed At | + + + + + | Lactate, Arterial | 1.9 (H)Comment: | 0.5 - 1.6 mmol/L | [facility] | | | Performed by [facility] [address] | | [facility] | | | [address], [place] | | [facility] | | | [address] | | LABORATORY | | | | | [place] | + + + + + + + | Specimen | + + | Blood | + + + + + + + | Performing | Address | City/State/Zipcode | Phone Number | | Organization | | | | + + + + + | [facility] | [address] | [place] [address] | | | [facility] | | | | | LABORATORY [place] | | | | + + + + + Blood Gas , Arterial, Surgery (06/11/2018 1525)Only the most recent of 5 results within the time period is included. + + + ----+ + | Component [...] [facility] | | | | | [facility] | | | | | LABORATORY [...] L | [facility] | | | by [facility] [address], | | [facility] | | | [place] [address] | | MEDICAL CENTER | | |Performed by [facility] [address], [place] [address] | | LABORATORY | | | | | [place] | + + + ----+ + + + | Specimen | + + | Blood | + + + + + + + | Performing | Address | City/State/Zipcode | Phone Number | | Organization | | | | + + + + + | [facility] | [address] [place] | [place] [address] | | | [facility] | | | | | [place] [...] | assay has been evaluated | | [facility] | | | for screening for | [...] | | | seconds.Performed by [facility] | | | | | [address], | | | | | [place] [address] | | | + + + + + + + | Specimen | + + | Blood | + + + + + + + | Performing | Address | City/State/Zipcode | Phone Number | | Organization | | | | + + + + + | [facility] | [address] | [place] [address] | | | [facility] | | | | | LABORATORY [place] | | | | + + + + + ECHO Transesophageal (CHIQUITA) (06/11/2018 1305) + -----+ + | Narrative | Performed At | + -----+ + | | [facility] | | Transesophageal Echocardiography Report (CHIQUITA) Demographics Patient | | | Name [facility] Room | | | Number Therese LACKEY | | | Patient Number [id number] Date of | | | Study 06/11/2018 Visit Number [id number] | | | Accession | | | [id number] Interpreting Sharad Richard | | | MD Number | | | Physician Date of 1955 Referring | | | Physician ELEANOR COOPER Age 62 | | | year(s) 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 Visible portions of ascending aorta and arch normal. 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 Pulmonary artery | | | . Normal pericardium. No pericardial fluid. No pleural fluid. | | | Post-procedure Summary Dx:1. S/P CABG x 3 (GOODMAN-LAD, SVG-OM, | | | SVG-PDA)2. LV function [...] Procedure:1. CABG x 3 | | | (GOODMAN-LAD, SVG-OM, SVG-PDA). 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 Trace TR.7. Pulmonic valve normal Trace MI.8. Visible portions | | of ascending aorta and arch normal. 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 Pulmonary artery tyfqsw23. Normal pericardium. No pericardial fluid. No pleural | | fluid.Post-procedure Summary Dx:1. S/P CABG x 3 (GOODMAN-LAD, SVG-OM, SVG-PDA)2. LV | | function is [...] aftersternal | | closure.Procedure:1. CABG x 3 (GOODMAN-LAD, SVG-OM, SVG-PDA).Left Ventricle:Moderately | | depressed LV [...] | |Procedure: | |1. CABG x 3 (GOODMAN-LAD, SVG-OM, SVG-PDA). | | | |Left Ventricle: [...] | | | + +---------+ + + Chemistry Profile, A and V, [...] (L)Comment: | 4.75 - 5.30 mg/dL | AMILCAR | | Normalized | Performed by [facility] [address] | [facility] | | | [address], [place], [place] | | [facility] | | | [id number] | | LABORATORY | | | | | [place] | + + + + + + + | Specimen | + + | Blood | + + + + + + + | Performing | Address | City/State/Zipcode | Phone Number | | Organization | | | | + + + + + | [facility] | [address] | [place] [address] | | | [facility] | | | | | [facility]ORAT[facility] | | | | + + + + + Anesthesia Central Venous Catheter Note (06/11/2018 1149) + + + | Narrative | Performed At | + + + | Sanjeev Bradshaw MD 06/11/2018 11:50 Central Venous Line | | | Placement 06/11/2018 10:30 Indication: continuous CVP monitoring, | | | acid-base/laboratory analysis and intravenous access Insertion | | | reason: new indication for central line Line #: 1 Prep solution: | | | chlorhexidine/isoproplyl alcohol Preparation: central line kit used, | | | staff scrubbed hands and prep allowed to dry Sterile barriers used: | | | all Patient was: under GA Local anesthetic: 1% lidocaine | | | infiltration Vein: right internal jugular Size: 9 Fr Number of | | | Lumens: quad lumen (9 fr DL introducer with 7fr dl cath via | | | introducer port) Localizaton technique: ultrasound Radiology image | | | stored in patient's chart: ultrasound Catheter depth at skin: 16 cm | | | Port patency: all ports flushed Placement verification: saline | | | column, pressure transduced and pvc induced Securement: transparent | | | dressing Complications: no complications noted at this time 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 Performed by: SANJEEV BRADSHAW Location | | | performed: OR Electronically Signed by: Sanjeev Bradshaw | | | MD [place] date/time: 06/11/2018 | | | 11:49 | | + + + + ------+ | Procedure Note | + ------+ | Sanjeev Bradshaw MD - 06/11/2018 1149 PDT Central Venous Line Placement06/11/2018 | | 10:30Indication: continuous CVP monitoring, acid-base/laboratory analysis and | | intravenous accessInsertion reason: new indication for central lineLine #: 1Prep | | solution: chlorhexidine/isoproplyl alcoholPreparation: central line kit used, staff | | scrubbed hands and prep allowed to drySterile barriers used: allPatient was: under | | GALocal anesthetic: 1% lidocaine infiltrationVein: right internal jugularSize: 9 | | FrNumber of Lumens: quad lumen (9 fr DL introducer with 7fr dl cath via introducer | | port)Localizaton technique: ultrasoundRadiology image stored in patient's chart: | | ultrasoundCatheter depth at skin: 16 cmPort patency: all ports flushedPlacement | | verification: saline column, pressure transduced and pvc inducedSecurement: transparent | | dressingComplications: no complications noted at this timePerson recording: | | inserterPerformed by: SANJEEV BRADSHAWLocation performed: [place] Electronically Signed by: | | Sanjeev Bradshaw MD [facility] date/time: 06/11/2018 11:49 | |Number of Lumens: quad lumen (9 fr DL introducer with 7fr dl cath via introducer port) | |Localizaton technique: ultrasound | |Radiology image stored in patient's chart: ultrasound | |Catheter depth at skin: 16 cm | |Port patency: all ports flushed | |Placement verification: saline column, pressure transduced and pvc induced | |Securement: transparent dressing | |Complications: no complications noted at this time | |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 | |Performed by: SANJEEV BRADSHAW | |Location performed: [place] | | | |Electronically Signed by: Sanjeev Bradshaw MD [facility] date/time: 06/11/2018 11:49 | + ------+ Anesthesia Arterial Line Note (06/11/2018 1137) + + + | Narrative | Performed At | + + + | Sanjeev Bradshaw MD 06/11/2018 11:44 Arterial Line Placement | | | 06/11/2018 9:57 Indication: acid-base/laboratory analysis and | | | continuous blood pressure monitoring Prep solution: | | | chlorhexidine/isoproplyl alcohol Patient was: under GA Pain | | | prevention: 1% lidocaine infiltration Laterality: left | | | Artery:femoral LDA Gauge Size: 5 fr. Localization technique: | | | ultrasound Ultrasound image: stored in patient's chart Securement: | | | transparent dressing and sutures Performed by: SANJEEV BRADSHAW | | | Comments: Unsuccessful lt radial art line as unable to pass cath over | | | wire in vessel. Note vessel was highly calcified. Prev cath in | | | rt rad so moved to lt fem art for line placement. rfh | | + + + + -------+ | Procedure Note | + -------+ | Sanjeev Bradshaw MD - 06/11/2018 1137 PDT Arterial Line Placement06/11/2018 | | 9:57Indication: acid-base/laboratory analysis and continuous blood pressure | | monitoringPrep solution: chlorhexidine/isoproplyl alcoholPatient was: under GAPain | | prevention: 1% lidocaine infiltrationLaterality: leftArtery:femoralLDA Gauge Size: 5 | | fr.Localization technique: ultrasoundUltrasound image: stored in patient's | | chartSecurement: transparent dressing and suturesPerformed by: JITENDRA | | SANJEEVComments: Unsuccessful lt radial art line as unable to pass cath over wire in | | vessel. Note vessel was highly calcified. Prev cath in rt rad so moved to lt fem art | | for line placement. rfh | |LDA Gauge Size: 5 fr. | |Localization technique: ultrasound | |Ultrasound image: stored in patient's chart | |Securement: transparent dressing and sutures | |Performed by: SANJEEV BRADSHAW | |Comments: Unsuccessful lt radial art line as unable to pass cath over wire in vessel. Note vessel was highly calcified. Prev cath in rt rad so moved to lt fem art for line placement . rfh | + -------+ Anesthesia Airway Note (06/11/2018 1111) + + + | Narrative | Performed At | + + + | Sanjeev Bradshaw MD 06/11/2018 11:12 Anesthesia Airway | | | Placement 06/11/2018 10:08 Preprocedure check: patient identified, | | | suction, oxygen, airway equipment checked, airway assessed and | | | patient reassessment prior to induction Rapid Sequence Induction: no | | | Mask ventilation: easy Successful technique: videoscope | | | Laryngoscope blade size: 3 Airway grade: 1 (Full view of glottis) | | | Other equipment: stylette Attempts: 1 Airway type: endotracheal | | | Size: 7.5 Cuffed: cuffed Route, reference point: right side of mouth | | | Tube depth: 23 cm Tube secured with: adhesive tape Trauma: none | | | Tube placement verification: bilateral chest rise, equal bilateral | | | breath sounds, carbon dioxide detection and video laryngoscope | | | Performing provider: BRUNILDA TEMPLETON Assisted by: SANJEEV BRADSHAW | | | Electronically Signed by: Sanjeev Bradshaw | | | MD Ram | | | date/time: 06/11/2018 11:11 | | + + + + + | Procedure Note | + + | Sanjeev Bradshaw MD - 06/11/2018 1111 PDT Anesthesia Airway Placement06/11/2018 | | 10:08Preprocedure check: patient identified, suction, oxygen, airway equipment checked, | | airway assessed and patient reassessment prior to inductionRapid Sequence Induction: | | noMask ventilation: easySuccessful technique: videoscopeLaryngoscope blade size: 3 | | Airway grade: 1 (Full view of glottis)Other equipment: styletteAttempts: 1Airway type: | | endotrachealSize: 7.5Cuffed: cuffedRoute, reference point: right side of mouthTube | | depth: 23 cmTube secured with: adhesive tapeTrauma: noneTube placement verification: | | bilateral chest rise, equal bilateral breath sounds, carbon dioxide detection and video | | laryngoscopePerforming provider: BRUNILDA TEMPLETON MAssisted by: JITENDRA | | SANJEEVElectronically Signed by: Sanjeev Bradshaw MD ESig | | date/time: 06/11/2018 11:11 | |Airway type: endotracheal | |Size: 7.5 | |Cuffed: cuffed | |Route, reference point: right side of mouth | |Tube depth: 23 cm | |Tube secured with: adhesive tape | |Trauma: none | |Tube placement verification: bilateral chest rise, equal bilateral breath sounds, carbon di oxide detection and video laryngoscope | |Performing provider: BRUNILDA TEMPLETON M | |Assisted by: SANJEEV BRADSHAW | | | | | |Electronically Signed by: MD Lamin Cowart date/time: 11:11 | | | + + Type and Screen (06/11/2018512)Only the most recent of 2 results within the time period i s included. + + + + + | Component | Value | Ref Range | Performed At | + + + + + | Antibody Screen | Positive | | [facility] | | | | | [facility] | | | | | [facility] | | | [facility] | + + + + + | ABO | O | | [facility] | | | | | [facility] | | | | [facility] | | [facility] | + + + + + | Rh Type | Negative | | [facility] | | | | | [facility] | | | | [facility] | | | | [facility] | + + + + + + + | Specimen | + + | Blood | + + + + + | Narrative | Performed At | + + + | Specimen Expiration Date: [id number] | [facility] | | | [facility] | + + + + + + + + | Performing | Address | City/State/Zipcode | Phone Number | | Organization | | | | + + + + + | [facility] | [address] | [place] [address] | [phone] | | [facility] | | | | | [facility] | | | | | MEDICAL [facility]ENTER | | | | | [facility] RY | | | | | [facility] | + + + +--------- --------+ | Specimen Source | NasalComment: Performed | | [facility] | | | by [facility] [address], | | [facility] | | | [place] [address] | | MEDICAL CENTER | | |Performed by [facility] [address], [place] [address] | | LABORATO RY | | | | | CERNER | + + + +--------- --------+ + + | Specimen | + + | Tissue - Nares | + + + + + + + | Performing | Address | City/State/Zipcode | Phone Number | | Organization | | | | + + + + + | [facility] | [address] | [place] [address] | | | [facility] | | | | | [facility]AT[facility] [place] | | | | + + + + + Urinalysis with Microscopic with Culture if Indicated (06/11/2018)Only the most recent of 2 results within the time period is included. + + + + + | Component [...] + + + + + | Specific [place] | 1.010 | 1.001 - 1.030 | [...] URINE SOURCE | Clean catchComment: | | [facility] | | | Performed by [facility] [address] | | [facility] | | | [place] | | [facility] | | | [address] | | LABORATORY | | | | [...] [address] | [place] [address] | | | [facility] | [...] [facility] | | | | | [facility] | | | | | LABORATORY | | | | | C[facility] | + + + + + | Hepatitis C Ab | >11.0 (H)Comment: | 0.0 - 0.9 | [facility] | | | | | [facility] | | | | | [facility] | | | Nega | | [...] Amplification test | | | | | ([id number]).Performed At: | | | | | [facility] [place] [address] | | | | | [facility] [address] | | | | | [place], [place] | | | | | [phone] Daniel | | | | | L Ph:[phone] | | | + + + + + + + | Specimen | + + | Blood | + + + + + + + | Performing | Address | City/State/Zipcode | Phone Number | | Organization | | | | + + + + + | [facility] | [address] | [place] [address] | | | [facility] | | | | | LABORATORY [place] | | | | + + + + + Pulmonary function test full PFT (06/10/2018 1156) + + + | Narrative | Performed At | + + + | Ladarius Ramirez | | | MD Zuri 06/10/2018 11:57Spirometry [...] | | | | + + + Hepatitis Panel, Chronic (06/10/2018 0655) + + + + + | Component | Value | Ref Range | Performed At | + + + + + | Hepatitis B Surface | Negative | Negative | [facility] | | Ag | | | [facility] | | | [facility] | | | | | LABORATORY | | | | | [place] | + + + + + | Hepatitis B Core Ab, | Positive (A) | Negative | [facility] | | Total | | | [facility] | | | | | [facility] | | | | | LABORATORY | | | | | CERNER | + + + + + | Hepatitis C Ab | >11.0 (H)Comment: | 0.0 - 0.9 | [facility] | | | | | [facility] | | | | | [facility] | | | Nega | | [...] Amplification test | | | | | ([id number]).Performed At: | | | | | [facility] [address] | | | | | [address] [address] | | | | | [place], [place] | | | | | [phone] Daniel | | | | | L Ph:[phone] | | | + + + + + | HEP A TOTAL AB | Positive (A) | Negative | [facility] | | | | | [facility] | | | | | [facility] | | | | | LABORATORY [...] + | [facility] | [address] | [place] [address] | | | [facility] | | | | | LABORATORY [place] | | | | + + + + + Hemoglobin A1C (06/10/201855) + + + + + | Component | Value | Ref Range | Performed At | + + + + + | Hemoglobin A1c | 5.5Comment: The ADA | 4.3 - 6.1 % | [facility] | | | recommends A1C values of | | [facility] | | | less than 7% as the | | [facility] | | | goal for diabetic | | LABORATORY | | | therapy. | | [place] | + + + + + | Estimated Average | 111Comment: The ADA | 65 - 154 mg/dL | [facility] | | Glucose | considers an Estimated | | [facility] | | | Average Glucose (eAG) | | [facility] | | | result of LT [...] | | | formula.Performed by [facility] | | | | | [address], | | | | | [place] [address] | | | + + + + + + + | Specimen | + + | Blood | + + + + + + + | Performing | Address | City/State/Zipcode | Phone Number | | Organization | | | | + + + + + | [facility] | [address] | [place] [address] | | | [facility] | | | | | LABORATORY [place] | | | | + + + + + ABO Rh (06/10/2018648) + + + + + | Component | Value | Ref Range | Performed At | + + + + + | ABO | O | | [facility] | | | | | [facility] | | | | | [facility] | | | | [facility] | + + + + + | Rh Type | Negative | | [facility] | | | | | [facility] | | | | | [facility] | | | | [facility] | + + + + + + + + | Narrative | Performed At | + + + | Specimen Expiration Date: [id number] | [facility] | | | [facility] | [facility] | + + + + + + + + | Performing | Address | City/State/Zipcode | Phone Number | | Organization | | | | + + + + + | [facility] | [address] | [place] [address] | [phone] | | [facility] | | | | | [facility] | | | | | [facility] | | | | + + + + + Antibody Screen (06/10/201849) + + + + + | Component | Value | Ref Range | Performed At | + + + + + | Antibody Screen | Positive | | [facility] | | | | | [facility] | | | | | [facility] | | | | [facility] | + + + + + + + + | Narrative | Performed At | + + + | Specimen Expiration Date: [id number] | [facility] | | | [facility] | | | [facility] | + + + + + + + + | Performing | Address | City/State/Zipcode | Phone Number | | Organization | | | | + + + + + | [facility] | [address] | [place] [address] | [phone] | | [facility] | | | | | [facility] | | | | | [facility] | | | | + + + + + Antibody identification (06/10/201845) + + + + + | Component | Value | Ref Range | Performed At | + + + + + | Antibody ID | Alonzo | | [facility] | | | | | [facility] | | | | | [facility] | | | | [facility] | + + + + + + + + | Narrative | Performed At | + + + | Specimen Expiration Date: [id number] | [facility] | | | [facility] | [facility] | + + + + + + + + | Performing | Address | City/State/Zipcode | Phone Number | | Organization | | | | + + + + + | [facility] | [address] | [place] [address] | [phone] | | [facility] | | | | | [facility] | | | | [facility] | | | | + + + + + CV CARDIAC PROCEDURE (06/09/20188) + +-------+ + + | Component | [...] | proximal 40% LAD, 95% ostial septal citizenship teacher, 70% mid and distal LAD, 100% mid [...] | | | LAD, 95% ostial septal citizenship teacher, 70% mid and distal LAD, 100% mid [...] + + | Performing | Address | City/State[facility] | Phone Number | | Organization | [...] lateral castillo from | | | prior [place]. 4. Mild destinee infarct ischemia. LARGE SEVERE inferior and | | | Lateral IN. Cath will be recommended to see best [...] + +---------+ + + CBC with Differential (06/09/2018 0307)Only the most recent of 2 results within the time paul nowak is included. + + + --+ + | Component [...] [facility] | | | | | [facility] | | | | | LABORATORY | | | | | CERN[facility] | + + + --+ + | Absolute Basophils | 0.07Comment: Performed | 0.00 - 0.10 K/u L | [facility] | | | by [facility] [address], | | [facility] | | | [place] [address] | | MEDICAL CENTER | | |Performed by [facility] [address], [place] [address] | | LABORATORY | | | | | CERNER | + + + --+ + + + | Specimen | + + | Blood | + + + + + + + | Performing | Address | City/State/Zipcode | Phone Number | | Organization | | | | + + + + + | [facility] | [address] | [place] [address] | | | [facility] | | | | | LABORATORY [facility] | | | | + + + + + Magnesium (06/09/2018 0307)Only the most recent of 2 results within the time period is incl uded. + + + +--------- --------+ | Component | Value | Ref Range | Performe d At | + + + +--------- --------+ | Magnesium | 2.1Comment: Performed | 1.7 - 2.4 mg/dL | [facility] | | | by [facility] [address], | | [facility] | | | [place] [address] | | [facility] | | |Performed by [facility] [address], [place] [address] | | [facility] | | | | | CERNER | + + + +--------- --------+ + + | Specimen | + + | Blood | + + + + + + + | Performing | Address | City/State/Zipcode | Phone Number | | Organization | | | | + + + + + | [facility] | [address] | [place] [address] | | | [facility] | | | | | LAB[facility]ATORY [place] | | | | + + + + + ECHO Complete (06/08/2018 115) + +--------+ + + | Component | [...] | + +---------+ + + Troponin I (06/08/2018920)Only the most recent of 5 results within the time period is inc luded. + + + + + | Component | Value | Ref Range | Performed At | + + + + + | Troponin I | 0.260 (AA)Comment: | 0.000 - 0.069 ng/mL | [facility] | | | Critical TRPI called to | | [facility] | | | and read back by LEANN Sandhu [facility] | | | at 06/08/2018 10:03:33 [...] | | | TroponinPerformed by [facility] | | | | | [address], | | | | | [place] [address] | | | + + + + + + + | Specimen | + + | Blood | + + + + + + + | Performing | Address | City/State/Zipcode | Phone Number | | Organization | | | | + + + + + | [facility] | [address] | [place] [address] | | | [facility] | | | | | LABORATORY [facility] | | | | + + + + + Renal Function Panel (06/08/2018315) + + + + + | Component | Value | Ref Range | Performed At | + + + + + | NA | 137 | 135 - 145 mmol/L | [facility] [...] by | | LABORATORY | | | [facility] [address], | | [place] | | | [place] [address] | | | + + + + + + + | Specimen | + + | Blood | + + + + + + + | Performing | Address | City/State/Zipcode | Phone Number | | Organization | | | | + + + + + | [facility] | [address] | [place] [address] | | | [facility] | | | | | [place] [...] | [facility] | | | Performed by [facility] [address] | | [facility] | | | [address] [place] | | MEDICAL CENTER | | | [address] | | LABORATORY | | | | | CERNER | + + + + + + + | Specimen | + + | Blood | + + + + + + + | Performing | Address | City/State/Zipcode | Phone Number | | Organization | | | | + + + + + | [facility] | [address] | [place] [address] | | | [facility] | | | | | [place] [...] Signed by: | | | MD Chase, Akvon Sign Date/Time: 06/07/2018 9:27 AM | | [...] + Drugs of Abuse, Screen, Urine (06/07/2018 0914) + + + + + | Component [...] [facility] | | | | | [facility] | | | | | LABORATORY | | | | | [facility] | + + + + + | U Tox Comment | See CommentComment: | | [facility] | | | This entire battery is | | [facility] | | | for screening purposes | | [facility] | | | only. Results are [...] | | | battery.Performed by [facility] | | | | | [address], | | | | | [place] [address] | | | + + + + + + + | Specimen | + + | Urine | + + + + + + + | Performing | Address | City/State/Zipcode | Phone Number | | Organization | | | | + + + + + | [facility] | [address] | [place] [address] | | | [facility] | | | | | LABORATORY [place] | | | | + + + + + Myoglobin (06/07/2018909) + + + +----- + | Component | Value | Ref Range | Perf ormed At | + + + +----- + | MYOGLOBIN, SERUM | 69Comment: Performed by | 0 - 69 ng/mL | [facility] | | | [facility] [address], | | [facility] | | | [place] | | [facility] | | |Performed by [facility] [address], [place], [place] | | LABO RATORY | | | [...] [address] | [place] | | | [facility] | | | | | LABORATORY [place] | | | | + + + + + Lipase (06/07/2018909) + + + + ----+ | Component | Value | Ref Range | Performed At | + + + + ----+ | Lipase | 32Comment: Performed by | 11 - 82 U/L | [facility] | | | [facility] [address], | | [facility] | | | [place] [address] | | MEDICAL CENT ER | | |Performed by [facility] [address], [place] [address] | | LABORATORY | | | | | C[facility] | + + + + ----+ + + | Specimen | + + | Blood | + + + + + + + | Performing | Address | City/State/Zipcode | Phone Number | | Organization | | | | + + + + + | [facility] | [address] | [place] [address] | | | [facility] | | | | | LAB[facility]ATORY [place] | | | | + + + + + Extra Hold Tube(s) (06/07/2018909) + + + + ---+ | Component | Value | Ref Range | Performed At | + + + + ---+ | Extra Tube | DrawnComment: Performed | | [facility] | | | by [facility] [address], | | [facility] | | | [place] [address] | | MEDICAL CENTE R | | |Performed by [facility] [address], [place] [address] | | LABORATORY | | | | | [place] | + + + + ---+ + + | Specimen | + + | Blood | + + + + + + + | Performing | Address | City/State/Zipcode | Phone Number | | Organization | | | | + + + + + | [facility] | [address] | [place] [address] | | | [facility] | | | | | LABORATORY [facility] | | | | + + + + + CK Total (06/07/201803) + + + + -----+ | Component | Value | Ref Range | Performed A t | + + + + -----+ | CK TOTAL | 84Comment: Performed by | 30 - 240 U/L | [facility] | | | [facility] [address], | | [facility] | | | [place] [address] | | [address]ICAL [address] | | |Performed by [facility] [address], [place] [address] | | LABORATORY | | | | | [place] | + + + + -----+ + + | Specimen | + + | Blood | + + + + + + + | Performing | Address | City/State/Zipcode | Phone Number | | Organization | | | | + + + + + | [facility] | [address] | [place] [address] | | | [facility] | | | | | [place] | | | | + + + + + ARRHYTHMIA MONITOR - EXTERNAL SCAN (06/07/2018) + + + | Narrative | Performed At | + + + | Ordered by an | | | unspecified provider. | | + + + from Last 3 Months Insurance + +--------+ +--------+ +---------+ | Payer | Benefi | Subscriber | Type | Phone | Address | | | t Plan | ID | | | | | | / | | | | | | | Group | | | | | + +--------+ +--------+ +---------+ | MEDICARE | MEDICA | [id number] | Medica | [phone] | | | | RE | | re | [phone] | | | | PART A | | | | | | | AND B | | | | | + +--------+ +--------+ +---------+ | DEPARTMENT OF | [place] | [phone] | Indemn | | | | CORRECTIONS | RE | | ity | | | + +--------+ +--------+ +---------+ | MEDICAID SHAH | MEDICA | [id number] | Medica | [phone] | | | ID | | id | [id number] | | | | WASHIN | | | | | | | [place] | | | | | + +--------+ +--------+ +---------+ + +--------+ +--------+ + + | Guarantor Name | Accoun | Relation to | Date | Phone | Billing Address | | | t Type | Patient | of | | | | | | | | | | + +--------+ +--------+ + + | ANNE MARIE FLETCHER | Person | Self [birth year] | Home: | [address] | | | al/Fam | | [phone] | [phone] | [place] [address] | | | daljit | | | [phone] | | + +--------+ +--------+ + + | [place] | 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
--- OUTSIDE RECORDS SUMMARY | ~2018-07-05 | XMS | Encounter Summary ---
Demographics + + + | Address | [address] | | | [place] [address] | + + + | Home Phone [...] Author | [facility] | | | and Ankitana | + + + | Organization | [facility] | | [...] Team Providers + +------+ + | Care Manager Beverage Name | Role | Phone | + [...] [place] | | | | | | [place], [place] | [place] | | | | | | [address] | [address] | | | | | | Phone: | Phone: | | | | | | [phone] | [phone] | | | | | | Fax: | Fax: | | | | | | [phone] | [phone] | + + + + + + [...] | | | | | (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[address] | | | | | | elevated | [address], [place] | | | | | | myocardial | 110 | | | | | | infarction) | [place] | | | | | | ([facility]) | [address] | | | | | | Procedures | Phone: | | | | | | DME: Walker | [phone] | | | | | | | Fax: | | | | | | | [phone] | | +--------+--------+ + + + + [...] | Required | n | (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[address] | REHABILITATIO | | | | | elevated | [address], [place] | [address] | | | | | myocardial | 110 | [place] | | | | | infarction) | [place] | [place] | | | | | ([facility]) | [address] | [address] | | | | | | Phone: | Phone: | | | | | | [phone] | [phone] | | | | | | Fax: | Fax: | | | | | | [phone] | [phone] | + + + + + + [...] | | | | | | | ([facility]) | | | | | | | NSTEMI | | | | | | | (non-ST | | | | | | | elevated | | | | | | | myocardial | | | | | | | infarction) | | | | | | | ([facility]) Chest | | | | | | | pain | | | | | | | syndrome | | | | | | | Opiate | | | | | | | abuse, | | | | | | | continuous | | | | | | | ([facility]) | | | | | | | [...] | | CARDIAC TRANSPLANT | [place] [address] | (non-ST elevated | | 06/15/ | | [address] | [phone] | myocardial | | 2018 | | [place] | | infarction) (HCC); | | | | [address] | Emma Lowe MD | Methamphetamine | | | | [phone] | [address], | abuse; Opiate abuse, | | | | | 9th floor [place], | continuous; | | | | | [place] [address] | Marijuana abuse; | | | | | [phone] | Non-intractable | | | | | | cyclical vomiting | | | | | Michael Olson | with nausea; | | | | | MD Lilliana [address] | Esophagitis; Chest | | | | | [address] | pain syndrome; ASHD | | | | | [place] [address] | (arteriosclerotic | | | | | [phone] | heart disease); | | | | | | Essential | | | | | Kathie Campbell, | hypertension; | | | | | [address] | Methamphetamine use; | | | | | [place] [address] | Marijuana use; | | | | | [phone] | Troponin level | | | | | | elevated; Ischemic | | | | | Hemanth Webster, | cardiomyopathy; | | | | | MD [address], | Chronic GERD; | | | | | [place] [address] [place] | Elevated troponin | | | | | [address] | level | | | | | [phone] | | | | | | | [...] Discharge Summaries Suresh Segovia RN - 06/15/2018 2057 SALVATORE Dalal saw the patient this 06/15/18 and c onfirmed discharge at 1200. ELÍAS Prince and ELÍAS Brown completed the discharge instructions. Th e patient will be getting their new RXs filled at home preferred pharmacy. Unable to fill pr escriptions before pharmacy closed. Pharmacist notified and gave patient number for [facility] to transfer medications in AM. Given night time pain medications prior to leaving. T he AVS was reviewed with patient and family with no pending questions or concerns. All belon gings were collected from the room and sent with the family. The pt is discharging home with family in [place]. New FWW sent with patient. No further questions and all teaching demonstr ated back to RN. Plan for d/c at 1800 when family arrives. Juancho Greco, [facility] - 06/15/2018 1201 PDTFormatting of this note may be different from the original. [facility] Discharge Summary 06/15/2018 NAME/AGE/: Smitha Fletcher 62 y.o. female (1955) ADMISSION DATE: 06/07/2018 Attending Physician: Hemanth Webster MD Admitting Physician: Emma Loew MD NOTE TO PROVIDERS: New medications on [...] arriving at the ER and our social research assistant has confirmed that she is free to [...] and occupational therapy for post-op rehab. - [facility]. Disposition: Home with family. Patient was advised to call our office or their technical engineer with any questions. Follow-Up: Follow-up Information SALVATORE Ventura. Go on 06/23/2018. Specialty: Nurse Practitioner Why: Hospital follow up scheduled at 11:[address] Roa [facility] [address] [facility] [id number] Hemanth Webster MD. Schedule an appointment as soon as possible for a visit on 06/29/2018 . Specialty: Cardiothoracic Surgery Why: 11:30 AM Contact information: [address], [facility] [address] [facility] [address] Schedule an appointment as soon as possible for a [facility] with [facility] Why: Please call to schedule your 1 month follow-up with cardiology. Contact information: [address] [place] [address] [address] [facility] [address] Time spent on discharge planning: greater than 30 minutes CABG Checklist ACEI/ARB/ARNI prescribed: No - Hypotension Aspirin prescribed: Not addressed Beta mateus (evidence-based) prescribed: Yes Beta mateus prescribed: N/A - LV EF is less than 41% High intensity statin prescribed: Yes Referral to cardiac rehab: Yes Tobacco cessation counseling provided: Yes [facility] [address] [place] [address], [address] [address] Portions of this chart may have been created with ImageSpike voice recognition software. Occasi onal wrong-word or [...] feeling more short of breath, please call [place] [facility] at [phone]. 2. For problems or concerns with your incision or your chest, please call [facility] Lung (Surgery) at [phone]. After Coronary Artery Bypass Surgery When you [...] by medication, call your healthcare pr fuad. [phone] Darrell Gallegos, [address] [place] [address], [place] [address]. All rights reserve d. This information is [...] | | | | | | infarction) ([facility]), | | | | | | | Polysubstance abuse | | | | | | | ([facility]) | | | | | | + [...] bedside. Pt states she was brought to [facility] by [facility] but states she is no l onger in custody. No guards at the door. RIZWANA Windows 7 Deployment Lead suggested SW contact senior care to confirm. SW spoke with [facility] who confirms pt was released. SW spoke with pt regarding discharge plan. Pt plans to discharge to friend's home. SW available should further discharg e planning needs arise. Keith Harp MD - 06/15/2018 2625 PDTFormatting of this note may be different fro m the original. [facility] PATIENT NAME: Smitha Fletcher : 1955: AGE: [...] dilol. 2. Follow-up requested. Keith Harp MD, [facility] Portions of this chart were created with ImageSpike voice recognition software. Occasional wro ng-word or "sound-alike" substitutions may have occurred due to the inherent limitations of voice recognition software. Please read the chart carefully and recognize, using context, w here those substitutions have occurred.Deonte Lee MD - 06/15/2018 0715 PDTFormattin g of this note may be different from the original. [facility] Pt. Name/Age/: Smitha Fletcher 62 y.o. 1955 Med. Record Number: [id number] Date of admission: 06/07/2018 POD # 4 Procedure: CABG X 3 Surgeon: Eleanor Subjective New complaints: poor sternal precautions. No c/o this morning. Acknowledges that came from [facility]. Not sure where she is going. No [...] signed by: Hector Decker PA-C Cardiothoracic Surgery [facility] [address], [place] [address] [place] [address] 06/15/2018 7:15 [facility] Agree with detailed plan nicely outlined by Ashley Hamilton, MACHINE BINDING FOLDER - 06/14/2018 1305 PDTSOCIAL WORK PLAN: TBD [...] has been completed. Please contact us at [phone] should the need arise. Thank you for [...] signed by: Rip Yao M.D. CardioThoracic Surgery [facility] 06/14/2018 9:23 [facility] Pt. Name/Age/: Smitha Fletcher 62 y.o. 1955 Med. Record Number: [id number] Date of admission: 06/07/2018 POD # 3 [...] the patient is going. Willl have social research assistant start arrangements. Problem List Patient Active Problem [...] signed by: Hector Decker PA-C Cardiothoracic Surgery [facility] [address], [place] [address] [place] [address] 06/14/2018 8:59 [facility] Dave Bansal MD - 06/14/2018 0807 PDTFormatting of this note may be different from the original. [facility] PATIENT NAME: Smitha Fletcher : 1955: AGE: [...] Portions of this chart were created with ImageSpike voice recognition software. Occasional wro ng-word or "sound-alike" substitutions may have occurred due to the inherent limitations of voice recognition software. Please read the chart carefully and recognize, using context, w here those substitutions have occurred.Frandy Squires, [facility] - 06/13/2018 1437 PDTFormat ting of this [...] Per RN; she will be discharging from [facility] to senior care that she came from. [...] by: SALVATORE Elias 06/13/2018 14:53 Diabetes team, [facility] [phone] Dave Bansal MD - 06/13/2018 1027 PDTFormatting of this note may be different from the original. [facility] PATIENT NAME: Smitha Fletcher : 1955: AGE: [...] Portions of this chart were created with ImageSpike voice recognition software. Occasional wro ng-word or [...] signed by: Rip Yao M.D. CardioThoracic Surgery [facility] 06/13/2018 9:35 [facility] Pt. Name/Age/: Smitha Fletcher 62 y.o. 1955 Med. Record Number: [id number] Date of admission: 06/07/2018 POD #2 Procedure: [...] signed by: Hector Decker PA-C Cardiothoracic Surgery [facility] [address], [place] [address] [place] [address] 06/13/2018 8:11 [facility] Kezia Pérez RN - 06/12/2018 1510 PDTPt [...] tolerated well. Plan transfer to floor.Yecenia Shirley, [facility] - 06/12/2018 1220 PDTSOCI AL WORK D/C PLAN: TBD INTERVENTION: Sw following for discharge planning. NEXT STEPS: Follow progress and therapy recommendations for discharge planning. ASSESSMENT/CHART REVIEW: Pt resides in [place]. She has Medicare coverage. COPD, is risk for readmission. If pt d oes not need placement she may benefit from home health post acute care. D/C TRANSPORT: TBD BARRIERS TO D/C: Medical stability CONTACTS: Hanna Navdeep: [phone] Bansal MD - 06/12/2018 1133 PDTFormatting of this note may be different from the original. [facility] [...] 1.0 0.4 - 1.5 % Comment PS8 XMB301 O2 Content, Arterial 15.7 15.0 - 23.0 [...] 22:29 Result Value Ref Range Product Code Y5626R15 UNIT # [id number] UNIT ABO O UNIT RH NEG CROSSMATCH INTERP Compatible Unit Status XM Blood Product Expiration Date and Time Product Blood Type Barcode 9500 Product Code R3242T89 UNIT # [id number] UNIT ABO O UNIT RH NEG CROSSMATCH [...] 6:53 Result Value Ref Range Product Code F1951Z43 UNIT # [id number] UNIT ABO O UNIT RH NEG CROSSMATCH INTERP Compatible Unit Status XM Blood Product Expiration Date and Time [id number] Product Blood Type Barcode 9500 POC Glucose [...] may b e different from the original. [facility] Hemanth Webster [...] ELÍAS Agosto Jordan N, RN - 06/11/2018 0844 PDTPt was sent to [facility] for [facility] [...] Date of Service: 06/10/2018 PCP: Yolanda Lee [facility] Hospital Day: 1 Hospital Course: This is a 62 y.o.femalewith hx substance abuse, AK and stent placement [place] [address] [...] - Single Lumen 06/10/18 1446 Right Forearm zeqm-bvi-cawlwq catheter sys tem 22 gauge;1 in length [...] - 99 mg/dL Final Comment: Performed by [facility] [address] [place] [place] [address] All pertinent labs and imaging have been [...] this chart may have been created with ImageSpike voice recognition software. Occasi onal wrong-word or [...] TTE 06/08/18 showed LVEF of 45% with nkajpcbq-oz-jwclpz hypokinesis of lateral and inferio r castillo. [...] female with a pmhx of polysubstance abuse, CAD/AK s/p stent (2011), ischemic EFrEF (LVEF of [...] educationa l purposes. Please refer to attending/resident/physician administrative assistant front desk/nurse practitioner note r egarding further patient care. Geno Carver, CLINICAL SCIENCE LIAISON - 06/10/2018 0957 PDTAssessed for Pulmonary Rehab. [...] TTE on 018 revealed LVEF = 45%, zvcicajc-yv-hwjndn hypokinesis of lateral and inferior castillo, julian [...] Complaint: Chest pain Hospital Course: 62F PMH CAD/AK s/p stent (2011), ischemic HFrEF (LVEF = [...] and opiates. TTE revealed LVEF = 45%, dliwcuqm-cl-iuvdfe hypokinesis of lateral and inferior castillo, mitr [...] attestation - Shad Schuler MD - 06/10/2018 3579 PDTDuring the visit, I per sonally interviewed [...] Date of Service: 06/09/2018 PCP: Yolanda Lee 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 [facility] Day: 0 Hospital Course: This is a 62 y.o.femalewith hx substance abuse, AK and stent placement [place] [address] [...] hypokinesis present but the patient has has AK's in the past . Mild LVH. Stress [...] Single Lumen 06/09/18 0836 Left Distal Forearm ofqm-etc-gypick cathet er system 20 gauge;1 1/4 in [...] this chart may have been created with ImageSpike voice recognition software. Occasi onal wrong-word or [...] TTE on 018 revealed LVEF = 45%, napqpqib-xy-pxktwa hypokinesis of lateral and inferior castillo, julian [...] Complaint: Chest pain Hospital Course: 62F PMH CAD/AK s/p stent (2011), ischemic HFrEF (LVEF = [...] and opiates. TTE revealed LVEF = 45%, dzgchcqt-wc-yebgqi hypokinesis of lateral and inferior castillo, mitr [...] of Service: 06/08/2018 PCP: Yolanda Lee [facility] Day: 0 Hospital Course: This is a 62 y.o. female with hx substance abuse, AK and stent placement [place] [address] [...] hypokinesis present but the patient has has AK's in the past . Mild LVH. Stress [...] 06/07/18 1545 Right Anterior (palmar);Medial Forearm ove j-dlg-jslejj catheter system 20 gauge;other (see comments) 1 [...] this chart may have been created with ImageSpike voice recognition software. Occasi onal wrong-word or [...] Portions of this chart were created with ImageSpike voice recognition software. Occasional wro ng-word or "sound-alike" substitutions may have occurred due to the inherent limitations of voice recognition software. Please read the chart carefully and recognize, using context, w here those substitutions have occurred.Rhiannon Marcus RN - 06/07/2018 1509 [id number] ed to floor. Somunlent. Asking very [...] | | | | | [place] [address] [place], | | | | | | [place] [address] | | | | | | [phone] | | | | | | | [...] myocardial | | | | | infarction) ([facility]) | | + +--------+ + + | [...] | | MEDICAL CENTER | | | [address] | | LABORATORY | | | | | [place] | + + + + + + + | Specimen | + + | Blood | + + + + + + + | Performing | Address | City/State/Zipcode | Phone Number | | Organization | | | | + + + + + | [facility] | [address] | [place] [address] | | | [facility] | | | | | LABORATORY [place] [...] by | | LABORATORY | | | [facility] [address], | | [place] | | | [place] [address] | | | + + + + + + + | Specimen | + + | Blood | + + + + + + + | Performing | Address | City/State/Zipcode | Phone Number | | Organization | | | | + + + + + | [facility] | [address] [facility] | [place] [address] | | | [facility] | | | | | LABORATORY [place] [...] + + + | Product Code | [id number] | | [facility]FERENCE [facility] | | | | | [place] | | | | | [facility] | | | | [facility] | + + + + + | UNIT # | [id number] | | [facility]ENCE [facility] | | | | | [place] | | | | | [facility] | | | | [facility] | + + + + + | UNIT ABO | O | | [facility] LAB | | | | | [place] | | | | | [facility] | | | | | [facility] | + + + + + | UNIT RH | NEG | | REFERENCE LAB | | | | | [place] | | | | | [facility] | | | | [facility] | + + + + + | CROSSMATCH INTERP | Compatible | | REFERENCE LAB | | | | | [place] | | | | | [facility] | | | | [facility] | + + + + + | Unit Status | RE | | [facility] | | | | | [place] | | | | | [facility] | | | | [facility] | + + + + + | Blood Product | [id number] | | [facility] | | Expiration Date and | | | [place] | | Time | | | [facility] | | | | [facility] | + + + + + | Product Blood Type | 9500 | | REFERENCE LAB | | Barcode | | | [place] | | | | | [facility] | | | | [facility] | + + + + + + + + | Narrative | Performed At | + + + | Specimen Expiration Date: [id number] | REFERENCE LAB | | | [place] | | | [facility] | [facility] | + + + + + + + + | Performing | Address | City/State/Zipcode | Phone Number | | Organization | | | | + + + + + | RE[facility] | [address] | [place] [address] | [phone] | | [place] | | | | | [facility] [...] | [facility] | | | Performed by [facility] [address] | | [facility] | | | [place] | | [facility] | | | [address] | | LABORATORY | | | | | [facility] | + + + + + + + | Specimen | + + | Blood | + + + + + + + | Performing | Address | City/State/Zipcode | Phone Number | | Organization | | | | + + + + + | [facility] | [address] | [place] [address] | | | [facility] | | | | | LABORATORY [place] | | | | + + + + + Red Blood Cells (06/14/2018 1212) + + + + + | Component | Value | Ref Range | Performed At | + + + + + | Product Code | [id number] | | REFERENCE LAB | | | | | [place] | | | | | [facility] | | | | [facility] | + + + + + | UNIT # | [id number] | | [facility] | | | | | [place] | | | | | [facility] | | | | | [facility] | + + + + + | UNIT ABO | O | | [facility] | | | | | [place] | | | | | [facility] | | | | | [facility] | + + + + + | UNIT RH | NEG | | [facility] LAB | | | | | [place] | | | | | [facility] | | | | | [facility] | + + + + + | CROSSMATCH INTERP | Compatible | | REFER[facility] LAB | | | | | [place] | | | | | [facility] | | | | [facility] | + + + + + | Unit Status | IS | | [facility] | | | | | [place] | | | | | [facility] | | | | [facility] | + + + + + | Blood Product | [id number] | | [facility] | | Expiration Date and | | | [place] | | Time | | | [facility] | | | | [facility] | + + + + + | Product Blood Type | 9500 | | [facility] | | Barcode | | | [place] | | | | | [facility] | | | | [facility] | + + + + + | Product Code | [id number] | | [facility] | | | | | [place] | | | | | [facility] | | | | [facility] | + + + + + | UNIT # | [id number] | | [facility] | | | | | [place] | | | | | [facility] | | | | [facility] | + + + + + | UNIT ABO | O | | [facility] LAB | | | | | [place] | | | | | [facility] | | | | [facility]ENTER | + + + + + | UNIT RH | NEG | | [facility] LAB | | | | | [place] | | | | | [facility] | | | | [facility] | + + + + + | CROSSMATCH INTERP | Compatible | | [facility]FER[facility] LAB | | | | | [place] | | | | | [facility] | | | | [facility] | + + + + + | Unit Status | IS | | [facility] | | | | | [place] | | | | | [facility] | | | | [facility] | + + + + + | Blood Product | [id number] | | [facility]FER[facility] LAB | | Expiration Date and | | | [place] | | Time | | | [facility] | | | | [facility] | + + + + + | Product Blood Type | 9500 | | REFERENCE LAB | | Barcode | | | [place] | | | | | [facility] | | | | [facility]ENTER | + + + + + + + + | Narrative | Performed At | + + + | Specimen Expiration Date: [id number] | REFERENCE LAB | | | [place] | | | [facility] | | [facility] | + + + + + + + + | Performing | Address | City/State/Zipcode | Phone Number | | Organization | | | | + + + + + | [facility] | [address] | [place] [address] | [phone] | | [place] | | | | | [facility] [...] | [facility] | | | Performed by [facility] [address] | | [facility] | | | [place] | | [facility] | | | [address] | | LABORATORY | | | | [...] [address] | [place] [address] | | | [facility] | | | | | LABORATORY [facility] | | | | + + + + + POC Glucose (06/14/2018 0231) + + + + + | Component | Value | Ref Range | Performed At | + + + + + | Glucose, POC | 148 (H)Comment: | 65 - 99 mg/dL | YINE | | | Performed by [facility] [address] | | [facility] | | | [address], [place] | | [facility] | | | [address] | | LABORATORY | | | | | [facility] | + + + + + + + | Specimen | + + | Blood | + + + + + + + | Performing | Address | City/State/Zipcode | Phone Number | | Organization | | | | + + + + + | [facility] | [address] | [place] [address] | | | [facility] | | | | | LABORATORY [place] | | | | + + + + + POC Glucose (06/13/20182038) + + + + + | Component | Value | Ref Range | Performed At | + + + + + | Glucose, POC | 165 (H)Comment: | 65 - 99 mg/dL | [facility] | | | Performed by [facility] [address] | | [facility] | | | [address], [place], [place] | | MEDICAL CENTER | | | [address] | | LABORATORY | | | | | [place] | + + + + + + + | Specimen | + + | Blood | + + + + + + + | Performing | Address | City/State/Zipcode | Phone Number | | Organization | | | | + + + + + | [facility] | [address] | [place] [address] | | | [facility] | [...] | [facility] | | | Performed by [facility] [address] | | [facility] | | | [address] [place] | | [facility] | | | [address] | | LABORATORY | | | | [...] [address] | [place] [address] | | | [facility] | | | | | LABORATORY [facility] | | | | + + + + + POC Glucose (06/13/2018 1120) + + + + + | Component | Value | Ref Range | Performed At | + + + + + | Glucose, POC | 131 (H)Comment: | 65 - 99 mg/dL | YINE | | | Performed by [facility] [address] | | [facility] | | | [place], [place] | | [facility] | | | [address] | | LABORATORY | | | | | C[place] | + + + + + + + | Specimen | + + | Blood | + + + + + + + | Performing | Address | City/State/Zipcode | Phone Number | | Organization | | | | + + + + + | [facility] | [address] | [place] [address] | | | [facility] | | | | | LABORATORY [place] | | | | + + + + + POC Glucose (06/13/2018624) + + + + + | Component | Value | Ref Range | Performed At | + + + + + | Glucose, POC | 159 (H)Comment: | 65 - 99 mg/dL | [facility] | | | Performed by [facility] [address] | | [facility] | | | [place] | | MEDICAL CENTER | | | [address] | | LABORATORY | | | | [...] [address] | [place] [address] | | | [facility] | | | | [...] | [facility] | | | Performed by [facility] [address] | | [facility] | | | [facility] [facility], [place], [place] | | MEDICAL CENTER | | | [address] | | LABORATORY | | | | | [place] | + + + + + + + | Specimen | + + | Blood | + + + + + + + | Performing | Address | City/State/Zipcode | Phone Number | | Organization | | | | + + + + + | AMILCAR CARDONA | [address] | [place] [address] | | | [facility] | | | | [...] by | | LABORATORY | | | [facility] [address], | | [place] | | | [place] [address] | | | + + + + + + + | Specimen | + + | Blood | + + + + + + + | Performing | Address | City/State/Zipcode | Phone Number | | Organization | | | | + + + + + | AMILCAR CARDONA | [address] | [place] [address] | | | [facility] | | | | | LABORATORY [place] | | | | + + + + + POC Glucose (06/13/20182) + + + + + | Component | Value | Ref Range | Performed At | + + + + + | Glucose, POC | 152 (H)Comment: | 65 - 99 mg/dL | [facility] | | | Performed by [facility] [address] | | [facility] | | | [address], [place] | | MEDICAL CENTER | | | [address] | | LABORATORY | | | | | CERNER | + + + + + + + | Specimen | + + | Blood | + + + + + + + | Performing | Address | City/State/Zipcode | Phone Number | | Organization | | | | + + + + + | AMILCAR CARDONA | [address] | [place] [address] | | | [facility] | [...] | [facility] | | | Performed by [facility] [address] | | [facility] | | | [address] [place], [place] | | [facility] | | | [address] | | LABORATORY | | | | | JAM[place] | + + + + + + + | Specimen | + + | Blood | + + + + + + + | Performing | Address | City/State/Zipcode | Phone Number | | Organization | | | | + + + + + | PROVIDEDEMIE [facility]CR | [address] | [place] [address] | | | [facility] | | | | | LABORATORY CERNER | | | | + + + + + POC Glucose (06/12/2018 1641) + + + + + | Component | Value | Ref Range | Performed At | + + + + + | Glucose, POC | 132 (H)Comment: | 65 - 99 mg/dL | [facility] | | | Performed by [facility] [address] | | [facility] | | | [address], [place] | | [facility] | | | [address] | | LABORATORY | | | | | CERNER | + + + + + + + | Specimen | + + | Blood | + + + + + + + | Performing | Address | City/State/Zipcode | Phone Number | | Organization | | | | + + + + + | YARELISDEMIKarly CARDONA | [address] | [place] [address] | | | [facility] | | | | | [place] | | | | + + + + + POC Glucose (06/12/2018 1602) + + + + + | Component | Value | Ref Range | Performed At | + + + + + | Glucose, POC | 126 (H)Comment: | 65 - 99 mg/dL | [facility] | | | Performed by [facility] [address] | | [facility] | | | [place] | | MEDICAL CENTER | | | [address] | | LABORATORY | | | | | CERNER | + + + + + + + | Specimen | + + | Blood | + + + + + + + | Performing | Address | City/State/Zipcode | Phone Number | | Organization | | | | + + + + + | [facility] | [address] | [place] [address] | | | [facility] | [...] | [facility] | | | Performed by [facility] [address] | | [facility] | | | [address] [place], [place] | | [facility] | | | [address] | | LABORATORY | | | | | [place] | + + + + + + + | Specimen | + + | Blood | + + + + + + + | Performing | Address | City/State/Zipcode | Phone Number | | Organization | | | | + + + + + | YARELISDEMIE SATURNINO | [address] | [place] [address] | | | [facility] | | | | | LABORATORY JAMINNER | | | | + + + + + POC Glucose (06/12/201859) + + + +-------- ---------+ | Component | Value | Ref Range | Perform ed At | + + + +-------- ---------+ | Glucose, POC | 98Comment: Performed by | 65 - 99 mg/dL | [facility] | | | [address], | | [facility] | | | [place] [address] | | MEDICAL CENTER | | |Performed by [facility] [address] [place] [address], [place] [address] | | LABORAT NADIA | | | | | [place] | + + + +-------- ---------+ + + | Specimen | + + | Blood | + + + + + + + | Performing | Address | City/State/Zipcode | Phone Number | | Organization | | | | + + + + + | AMILCAR CARDONA | [address] | [place] [address] | | | [facility] | | | | | LABORATORY [place] | | | | + + + + + POC Glucose (06/12/2018 0600) + + + + + | Component | Value | Ref Range | Performed At | + + + + + | Glucose, POC | 100 (H)Comment: | 65 - 99 mg/dL | [facility] | | | Performed by [facility] [address] | | [facility] | | | [place] | | [facility] | | | [address] | | LABORATORY | | | | | CERNER | + + + + + + + | Specimen | + + | Blood | + + + + + + + | Performing | Address | City/State/Zipcode | Phone Number | | Organization | | | | + + + + + | [facility] | [address] | [place], [place] | | | [facility] | | | | | LABORATORY CERNER | | | | + + + + + POC Glucose (06/12/20188) + + + +-------- ---------+ | Component | Value | Ref Range | Perform ed At | + + + +-------- ---------+ | Glucose, POC | 87Comment: Performed by | 65 - 99 mg/dL | [facility] | | | [facility] [address], | | [facility] | | | [place], [place] | | [facility] | | |Performed by [facility] [address], [place] | | LABORAT ORShahnaz | | | | | CERNER | + + + +-------- ---------+ + + | Specimen | + + | Blood | + + + + + + + | Performing | Address | City/State/Zipcode | Phone Number | | Organization | | | | + + + + + | AMILCAR CARDONA | [address] | [place] [address] | | | [facility] | | | | | [place] [...] mg/dL | [facility] | | | [facility] [address], | | [facility] | | | [place] [address] | | [facility] | | |Performed by [facility] [address], [place] [address] | | LABORAT ORY | | | | | CERNER | + + + +-------- ---------+ + + | Specimen | + + | Blood | + + + + + + + | Performing | Address | City/State/Zipcode | Phone Number | | Organization | | | | + + + + + | AMILCAR CARDONA | [address] | [place] [address] | | | [facility] | | | | | LABORATORY CERNER | | | | + + + + + ECG 12 lead (06/12/2018311) + + + | Narrative | Performed At | + + + | HEART RATE:60 | [facility] | | bpmRR Interval:1000 msAtrial Rate:61 msP-R Interval:176 msP | [facility] | | Duration:184 msP Horizontal [place]:5 degP Front [place]:55 degQ Onset:508 | | | msQRSD Interval:104 msQT Interval:452 msQTcB:452 msQTcF:452 msQRS | | | Horizontal [place]:129 degQRS [place]:-53 degI-40 Horizontal [place]:77 degI-40 | | | Front [place]:-44 degT-40 Horizontal [place]:204 degT-40 Front [place]:-83 | | | degT Horizontal [place]:95 degT Wave [place]:39 degS-T Horizontal [place]:79 | | | degS-T Front [place]:49 degSeverity:- ABNORMAL ECG -INTERP:SINUS | | | RHYTHMINTERP:CONSIDER RIGHT VENTRICULAR HYPERTROPHYINTERP:PROBABLE | | | INFERIOR INFARCT, AGE INDETERMINATEINTERP:BORDERLINE ST ELEVATION, | | | ANTERIOR LEADSElectronically signed by: ELIZABETH CAMPBELL 06-12-2018 | | | 07:37:14 | | |QRS Horizontal [place]:129 deg | | |QRS [place]:-53 deg | | |I-40 Horizontal [place]:77 deg | | |I-40 Front [place]:-44 deg | | |T-40 Horizontal [place]:204 deg | | |T-40 Front [place]:-83 deg | | |T Horizontal [place]:95 deg | | |T Wave [place]:39 deg | | |S-T Horizontal [place]:79 deg | | |S-T Front [place]:49 deg | | |Severity:- ABNORMAL ECG - [...] + + | FL[facility] | [address] | [place] [address] | [phone] | + + + + + CBC [...] | [facility] | | | Performed by [facility] [address] | | [facility] | | | [place] | | MEDICAL CENTER | | | [address] | | LABORATORY | | | | | CERNER | + + + + + + + | Specimen | + + | Blood | + + + + + + + | Performing | Address | City/State/Zipcode | Phone Number | | Organization | | | | + + + + + | AMILCAR CARDONA | [address] | [place] [address] | | | [facility] | [...] 51 (L)Comment: eGFR<60 | >=90 mL/min/1.73m2 | [facility] | | | consistent with impaired | | [facility] | | | kidney | | MEDICAL CENTER | | | function.Performed by | | LABORATORY | | | [facility] [address], | | [place] | | | [place] [address] | | | + + + + + + + | Specimen | + + | Blood | + + + + + + + | Performing | Address | City/State/Zipcode | Phone Number | | Organization | | | | + + + + + | [facility] | [address] | [place] [address] | | | [facility] | [...] | [facility] | | | Performed by [facility] [address] | | [facility] | | | [address] [place] | | [facility] | | | [address] | | LABORATORY | | | | | CERNER | + + + + + + + | Specimen | + + | Blood | + + + + + + + | Performing | Address | City/State/Zipcode | Phone Number | | Organization | | | | + + + + + | [facility] | [address] | [place], [place] | | | [facility] | | | | | LABORATORY CERNER | | | | + + + + + POC Glucose (06/12/2018134) + + + +-------- ---------+ | Component | Value | Ref Range | Perform ed At | + + + +-------- ---------+ | Glucose, POC | 99Comment: Performed by | 65 - 99 mg/dL | [facility] | | | [facility] [address], | | [facility] | | | [place], [place] | | [facility] | | |Performed by [facility] [address], [place], [place] | | LABORAT ORShahnaz | | | | | CERNER | + + + +-------- ---------+ + + | Specimen | + + | Blood | + + + + + + + | Performing | Address | City/State/Zipcode | Phone Number | | Organization | | | | + + + + + | AMILCAR CARDONA | [address] | [place] [address] | | | [facility] | | | | | [place] | | | | + + + + + POC Glucose (06/11/20182357) + + + + + | Component | Value | Ref Range | Performed At | + + + + + | Glucose, POC | 105 (H)Comment: | 65 - 99 mg/dL | PROVIDED[facility] | | | Performed by [facility] [address] | | [facility] | | | [address], [place] | | [facility] | | | [address] | | LABORATORY | | | | [...] [address] | [place] [address] | | | [facility] | [...] | [facility] | | | Performed by [facility] [address] | | [facility] | | | [place] | | [facility] | | | [address] | | LABORATORY | | | | | CERNER | + + + + + + + | Specimen | + + | Blood | + + + + + + + | Performing | Address | City/State/Zipcode | Phone Number | | Organization | | | | + + + + + | AMILCAR CARDONA | [address] | [place] [address] | | | [facility] | | | | | LABORATORY CERNER | | | | + + + + + Potassium Whole Blood (06/11/20182300) + + + + + | Component | Value | Ref Range | Performed At | + + + + + | K | 5.4 (H)Comment: | 3.5 - 5.0 mmol/L | [facility] | | | Performed by [facility] [address] | | [facility] | | | [place] | | [facility] | | | [address] | | LABORATORY | | | | | [place] | + + + + + + + | Specimen | + + | Blood | + + + + + + + | Performing | Address | City/State/Zipcode | Phone Number | | Organization | | | | + + + + + | YARELISDEMIKarly BRENDAN | [address] | [place] [address] | | | [facility] | | | | | LABORATORY [place] | | | | + + + + + Glucose, Respiratory (06/11/2018 2301) + + + + + | Component | Value | Ref Range | Performed At | + + + + + | GLUCOSE | 112 (H)Comment: | 65 - 99 mg/dL | [facility] | | | Performed by [facility] [address] | | [facility] | | | [place] | | [facility] | | | [address] | | LABORATORY | | | | | CERNER | + + + + + + + | Specimen | + + | Blood | + + + + + + + | Performing | Address | City/State/Zipcode | Phone Number | | Organization | | | | + + + + + | [facility] | [address] | [place] [address] | | | HEART [facility] | | | | | LABORATORY [place] | | | | + + + + + Blood Gas, Arterial (06/11/20182300) + + + ----+ + | Component | Value | Ref Range | Performed At | + + + ----+ + | pH, Arterial | 7.35 (L) | 7.37 - 7.47 | [facility] | | | | | [place] | | | | | [facility] | | | | | [...] [facility] | | | | | [facility] | | | | | LABORATORY | | | | | CERNER | + + + ----+ + | O2SAT COOX ARTERIAL | 95.9Comment: Performed | 92.0 - 99.0 % | [facility] | | | by [facility] [address], | | [facility] | | | [place] [address] | | [facility] | | |Performed by [facility] [address], [place] [address] | | LABORATORY | | | | [...] SACR | [address] | [place] [address] | | | [facility] | | | | | LABORATORY CERNER | | | | + + + + + POC Glucose (06/11/20182155) + + + + + | Component | Value | Ref Range | Performed At | + + + + + | Glucose, POC | 116 (H)Comment: | 65 - 99 mg/dL | [facility] | | | Performed by [facility] [address] | | [facility] | | | [address], [place] | | MEDICAL CENTER | | | [address] | | LABORATORY | | | | | CERNER | + + + + + + + | Specimen | + + | Blood | + + + + + + + | Performing | Address | City/State/Zipcode | Phone Number | | Organization | | | | + + + + + | AMILCAR CARDONA | [address] | [place] [address] | | | [facility] | | | | | LABORATORY [place] | | | | + + + + + POC Glucose (06/11/20182028) + + + + + | Component | Value | Ref Range | Performed At | + + + + + | Glucose, POC | 147 (H)Comment: | 65 - 99 mg/dL | [facility] | | | Performed by [facility] [address] | | [facility] | | | [address], [place], [place] | | [facility] | | | [address] | | LABORATORY | | | | | CERNER | + + + + + + + | Specimen | + + | Blood | + + + + + + + | Performing | Address | City/State/Zipcode | Phone Number | | Organization | | | | + + + + + | [facility] | [address] | [place] [address] | | | [facility] | | | | | LABORATORY CERNER | | | | + + + + + Potassium (06/11/20181957) + + + +-------- ---------+ | Component | Value | Ref Range | Perform ed At | + + + +-------- ---------+ | K | 3.9Comment: Performed | 3.5 - 5.0 mmol/L | [facility] | | | by [facility] [address], | | [facility] | | | [place] [address] | | [facility] | | |Performed by [facility] [address], [place] [address] | | LABORAT ORY | | | | | CERNER | + + + +-------- ---------+ + + | Specimen | + + | Blood | + + + + + + + | Performing | Address | City/State/Zipcode | Phone Number | | Organization | | | | + + + + + | AMILCAR CARDONA | [address] | [place] [address] | | | [facility] | | | | | LABORATORY [place] | | | | + + + + + POC Glucose (06/11/20181851) + + + + + | Component | Value | Ref Range | Performed At | + + + + + | Glucose, POC | 156 (H)Comment: | 65 - 99 mg/dL | [facility] | | | Performed by [facility] [address] | | [facility] | | | [address], [place] | | MEDICAL CENTER | | | [address] | | LABORATORY | | | | [...] [address] | [place] [address] | | | [facility] | | | | | LABORATORY CERNER | | | | + + + + + ECG 12 lead (06/11/2018 1659) + + + | Narrative | Performed At | + + + | HEART RATE:72 | [facility] | | bpmRR Interval:833 msAtrial Rate:72 msP-R Interval:176 msP | [facility] | | Duration:180 msP Horizontal [place]:-10 degP Front [place]:68 degQ Onset:512 | | | msQRSD Interval:110 msQT Interval:444 msQTcB:486 msQTcF:472 msQRS | | | Horizontal [place]:112 degQRS [place]:-63 degI-40 Horizontal [place]:100 | | | degI-40 Front [place]:-58 degT-40 Horizontal [place]: degT-40 Front [place]:160 | | | degT Horizontal [place]:104 degT Wave [place]:-11 degS-T Horizontal | | | [place]:104 degS-T Front [place]:32 degSeverity:- ABNORMAL ECG -INTERP:SINUS | | | RHYTHMINTERP:PROBABLE LEFT ATRIAL ABNORMALITYINTERP:NONSPECIFIC IVCD | | | WITH LADINTERP:INFERIOR INFARCT, AGE INDETERMINATEINTERP:LATERAL | | | INFARCT, OLDElectronically signed by: ELIZABETH CAMPBELL 06-12-2018 | | | 11:18:02 | | |QRS Horizontal [place]:112 deg | | |QRS [place]:-63 deg | | |I-40 Horizontal [place]:100 deg | | |I-40 Front [place]:-58 deg | | |T-40 Horizontal [place]: deg | | |T-40 Front [place]:160 deg | | |T Horizontal [place]:104 deg | | |T Wave [place]:-11 deg | | |S-T Horizontal [place]:104 deg | | |S-T Front [place]:32 deg | | |Severity:- ABNORMAL ECG - [...] + + | SARITHA REY | [address] | [place] [address] | [phone] | + + + + + PTT [...] | | | | | seconds.Performed by [facility] | | | | | [address], | | | | | [place] [address] | | | + + + + + + + | Specimen | + + | Blood | + + + + + + + | Performing | Address | City/State/Zipcode | Phone Number | | Organization | | | | + + + + + | AMILCAR CARDONA | [address] | [place] [address] | | | [facility] | | | | | LABORATORY [place] [...] [facility] | | | | | [facility] | | | | | LABORATORY | | | | | CERNER | + + + + + | INR | 1.2 (H)Comment: Usual | 0.9 - 1.1 | [facility] | | | oral anticoagulant | | [facility] | | | range: 2.0 to 3.0 High | | [facility] | | | level oral | | LABORATORY | | | anticoagulant range: 2.5 | | CERNER | | | to 3.5Performed by [facility] | | | | | [address] [place], | | | | | [place] [address] | | | + + + + + + + | Specimen | + + | Blood | + + + + + + + | Performing | Address | City/State/Zipcode | Phone Number | | Organization | | | | + + + + + | [facility] | [address] | [place] [address] | | | [facility] | | | | [...] by | | LABORATORY | | | [facility] [address], | | C[place] | | | [place] [address] | | | + + + + + + + | Specimen | + + | Blood | + + + + + + + | Performing | Address | City/State/Zipcode | Phone Number | | Organization | | | | + + + + + | AMILCAR CARDONA | [address] | [place] [address] | | | [facility] | | | | | [place] [...] | [facility] | | | Performed by [facility] [address] | | [facility] | | | [address] [place] | | MEDICAL CENTER | | | [address] | | LABORATORY | | | | | CERNER | + + + + + + + | Specimen | + + | Blood | + + + + + + + | Performing | Address | City/State/Zipcode | Phone Number | | Organization | | | | + + + + + | AMILCAR CARDONA | [address] | [place] [address] | | | [facility] | | | | | LABORATORY CERNER | | | | + + + + + Lactic Acid, Arterial, Respiratory (06/11/2018 1636) + + + + + | Component | Value | Ref Range | Performed At | + + + + + | Lactate, Arterial | 1.0Comment: Performed | 0.5 - 1.6 mmol/L | [facility] | | | by [facility] [address], | | [facility] | | | [place], [place] | | MEDICAL CENTER | | |Performed by [place] [address], [place] | | LABORATORY | | | | | CERNER | + + + + + + + | Specimen | + + | Blood | + + + + + + + | Performing | Address | City/State/Zipcode | Phone Number | | Organization | | | | + + + + + | [facility] | [address] | [place], [place] | | | [facility] [...] [facility] | | | | | [facility] | | | | | LABORATORY | | | | | CERNER | + + + + + | Calcium, pH | 5.06Comment: Performed | 4.75 - 5.30 mg/dL | [facility] | | Normalized | by [place] [address], | | [facility] | | | [place], [place] | | [facility] | | |Performed by [facility] [address], [place] | | LABORATORY | | | | | CERNER | + + + + + + + | Specimen | + + | Blood | + + + + + + + | Performing | Address | City/State/Zipcode | Phone Number | | Organization | | | | + + + + + | [facility] | [address] | [place], [place] | | | [facility] | | | | | LABORATORY [place] | | | | + + + + + Glucose, Respiratory (06/11/2018 1636) + + + + + | Component | Value | Ref Range | Performed At | + + + + + | GLUCOSE | 122 (H)Comment: | 65 - 99 mg/dL | [facility] | | | Performed by [facility] [address] | | [facility] | | | [address] [place], [place] | | [facility] | | | [address] | | LABORATORY | | | | | [place] | + + + + + + + | Specimen | + + | Blood | + + + + + + + | Performing | Address | City/State/Zipcode | Phone Number | | Organization | | | | + + + + + | AMILCAR CARDONA | [address] | [place] [address] | | | [facility] | | | | | LABORATORY [place] [...] + ----+ + | Comment | [id number] [id number] | | [facility] | | | | [...] [facility] | | | | | [facility] | | | | | LABORATORY | | | | | [place] | + + + ----+ + | O2SAT COOX ARTERIAL | 97.3Comment: Performed | 92.0 - 99.0 % | [facility] | | | by [facility] [address], | | [facility] | | | [place] [address] | | [facility] | | |Performed by [facility] [address], [place] [address] | | LABORATORY | | | | | CERNER | + + + ----+ + + + | Specimen | + + | Blood - Artery | + + + + + + + | Performing | Address | City/State/Zipcode | Phone Number | | Organization | | | | + + + + + | [facility] | [address] | [place] [address] | | | [facility] | | | | | LABORATORY ALTAGRACIA [...] | [facility] | | | Performed by [facility] Vu W[facility]nee | | [facility] | | | [place] | | [facility] | | | [id number] | | LABORATORY | | | | | CERNER | + + + + + + + | Specimen | + + | Blood | + + + + + + + | Performing | Address | City/State/Zipcode | Phone Number | | Organization | | | | + + + + + | [facility] | [address] | [place] [address] | | | [facility] | | | | | LABORATORY CERNER [...] L | [facility] | | | by [facility] [address], | | [facility] | | | [place] [address] | | [facility] | | |Performed by [facility] [address], [place] [address] | | LABORATORY | | | | | CERNER | + + + ----+ + + + | Specimen | + + | Blood | + + + + + + + | Performing | Address | City/State/Zipcode | Phone Number | | Organization | | | | + + + + + | [facility] | [address] | [place] [address] | | | [facility] | | | | | [place] [...] [facility] | | | | | [facility] | | | | | [...] | | | | | seconds.Performed by [facility] [facility] | | | | | [address] | | | | | [place] [address] | | | + + + + + + + | Specimen | + + | Blood | + + + + + + + | Performing | Address | City/State/Zipcode | Phone Number | | Organization | | | | + + + + + | [facility] | [address] | [place] [address] | | | [facility] | | | | | RIVERA FRIAS | | | | + + + + + Lactic Acid, Arterial, Surgery (06/11/2018 1450) + + + + + | Component | Value | Ref Range | Performed At | + + + + + | Lactate, Arterial | 2.0 (H)Comment: | 0.5 - 1.6 mmol/L | [facility] | | | Performed by [facility] [address] | | [facility] | | | [place] | | [facility] | | | [address] | | LABORATORY | | | | | CERNER | + + + + + + + | Specimen | + + | Blood | + + + + + + + | Performing | Address | City/State/Zipcode | Phone Number | | Organization | | | | + + + + + | [facility] | [address] | [place] [address] | | | [facility] | | | | | [...] L | [facility] | | | by [facility] [address], | | [facility] | | | [place] [address] | | MEDICAL CENTER | | |Performed by [facility] [address], [place] [address] | | LABORATORY | | | | | CERNER | + + + ----+ + + + | Specimen | + + | Blood | + + + + + + + | Performing | Address | City/State/Zipcode | Phone Number | | Organization | | | | + + + + + | [facility] | [address] | [place] [address] | | | [facility] | | | | | LABORATORY CERNER | | | | + + + + + Lactic Acid, Arterial, Surgery (06/11/2018 1400) + + + + + | Component | Value | Ref Range | Performed At | + + + + + | Lactate, Arterial | 1.5Comment: Performed | 0.5 - 1.6 mmol/L | [facility] | | | by [place] [address], | | [facility] | | | [place] [address] | | [facility] | | |Performed by [facility] [address], [place] [address] | | LABORATORY | | | | | CERNER | + + + + + + + | Specimen | + + | Blood | + + + + + + + | Performing | Address | City/State/Zipcode | Phone Number | | Organization | | | | + + + + + | [facility] | [address] | [place] [address] | | | [facility] | | | | | LABORATORY CERNER [...] HEART | | | OR23 | | [facility] | | |Results Delivered to OR [...] | YINE | | | Performed by [facility] [address] | | [facility] | | | [address] [place], [place] | | MEDICAL CENTER | | | [address] | | LABORATORY | | | | | CERNER | + + + + + + + | Specimen | + + | Blood | + + + + + + + | Performing | Address | City/State/Zipcode | Phone Number | | Organization | | | | + + + + + | [facility] | [address] | [place] [address] | | | [facility] | | | | | LABORATORY CERNER | | | | + + + + + Lactic Acid, Arterial, Surgery (06/11/2018 5964) + + + + + | Component | Value | Ref Range | Performed At | + + + + + | Lactate, Arterial | 1.2Comment: Performed | 0.5 - 1.6 mmol/L | [facility] | | | by [facility] [address], | | [facility] | | | [place] | | MEDICAL CENTER | | |Performed by [facility] [address], [place] | | LABORATORY | | | | | CERNER | + + + + + + + | Specimen | + + | Blood | + + + + + + + | Performing | Address | City/State/Zipcode | Phone Number | | Organization | | | | + + + + + | [facility] | [address] | [place], [place] | | | [facility] | | | | [...] | [facility] | | | Performed by [facility] [address] | | [facility] | | | [address] [place] | | MEDICAL CENT ER | | | [address] | | LABORATORY | | | | | CERNER | + + + + ----+ + + | Specimen | + + | Blood | + + + + + + + | Performing | Address | City/State/Zipcode | Phone Number | | Organization | | | | + + + + + | [facility] | [address] | [place] [address] | | | [facility] | | | | | LABORATORY ALTAGRACIA | | | | + + + + + ECHO Transesophageal (CHIQUITA) (06/11/2018 1305) + -----+ + | Narrative | Performed At | + -----+ + | | [facility] | | Transesophageal Echocardiography Report (CHIQUITA) Demographics Patient | | | Name 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 Visible portions of ascending aorta and arch normal. 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 Pulmonary artery | | | [id number]. Normal pericardium. No pericardial fluid. No pleural [...] Presley Dumont Results In - 06/11/2018 1654 [facility] Transesophageal Echocardiography Report | | (CHIQUITA) Demographics Patient Name 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 Trace TR.7. Pulmonic valve normal Trace DC.8. Visible portions | | of ascending aorta and arch normal. 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 Pulmonary artery [id number]. Normal pericardium. No pericardial fluid. No pleural [...] mmol/L | [facility] | | | by [facility] [address], | | [facility] | | | [place] [address] | | [facility] | | |Performed by [facility] [address] [place] [address], [place] [address] | | LABORATORY | | | | | CERNER | + + + + + + + | Specimen | + + | Blood | + + + + + + + | Performing | Address | City/State/Zipcode | Phone Number | | Organization | | | | + + + + + | [facility] | [address] | [place] [address] | | | [facility] | | | | | LABORATORY CERNER [...] [facility] | | | | | [facility] | | | | | LABORATORY | | | | | CERNER | + + + + + | Calcium, pH | 3.71 (L)Comment: | 4.75 - 5.30 mg/dL | [facility] | | Normalized | Performed by [facility] [address] | | [facility] | | | [address] [place] | | MEDICAL CENTER | | | [address] | | LABORATORY | | | | | CERNER | + + + + + + + | Specimen | + + | Blood | + + + + + + + | Performing | Address | City/State/Zipcode | Phone Number | | Organization | | | | + + + + + | [facility] | [address] | [place] [address] | | | [facility] | | | | | LABORATORY [place] | | | | + + + + + Lactic Acid, Arterial, Surgery (06/11/2018 1035) + + + + + | Component | Value | Ref Range | Performed At | + + + + + | Lactate, Arterial | 0.9Comment: Performed | 0.5 - 1.6 mmol/L | [facility] | | | by [place] [address], | | [facility] | | | [place] [address] | | [facility] | | |Performed by [place] [address] [address], [place] [address] | | LABORATORY | | | | | CERNER | + + + + + + + | Specimen | + + | Blood | + + + + + + + | Performing | Address | City/State/Zipcode | Phone Number | | Organization | | | | + + + + + | [facility] | [address] | [place] [address] | | | [facility] | | | | | LABORATORY ALTAGRACIA [...] | [facility] | | | Performed by [facility] [address] | | [facility] | | | [address], [place] | | [facility] | | | [address] | | LABORATORY | | | | | ALTAGRACIA | + + + + + + + | Specimen | + + | Blood | + + + + + + + | Performing | Address | City/State/Zipcode | Phone Number | | Organization | | | | + + + + + | [facility] | [address] | [place] [address] | | | [facility] | | | | | LABORATORY [place]IA | | | | + + + + + Type and Screen (06/11/2018512) + + + + + | Component | Value | Ref Range | Performed At | + + + + + | Antibody Screen | Positive | | [facility] | | | | | [place] | | | | | [facility] | | | | [facility] | + + + + + | ABO | O | | [facility] | | | | | [place] | | | | | [facility] | | | | [facility] | + + + + + | Rh Type | Negative | | [facility] | | | | | [place] | | | | | [facility] | | | | [facility] | + + + + + + + | Specimen | + + | Blood | + + + + + | Narrative | Performed At | + + + | Specimen Expiration Date: [id number] | [facility] | | | [place] | | | [facility] | | | [facility] | + + + + + + + + | Performing | Address | City/State/Zipcode | Phone Number | | Organization | | | | + + + + + | [facility] | [address] | [place] [address] | [phone] | | [place] | | | | | [facility] [...] | [facility] | | | Performed by [facility] [address] | | [facility] | | | [place] | | [facility] | | | [address] | | LABORATORY | | | | | ALTAGRACIA | + + + + + + + | Specimen | + + | Blood | + + + + + + + | Performing | Address | City/State/Zipcode | Phone Number | | Organization | | | | + + + + + | [facility] | [address] | [place] [address] | | | [facility] | [...] | CERNER | | | 3.5Performed by [facility] [address] | | | | [address], [place] | | | | | [address] | | | + + + + + + + | Specimen | + + | Blood | + + + + + + + | Performing | Address | City/State/Zipcode | Phone Number | | Organization | | | | + + + + + | [facility] | [address] | [place] [address] | | | [facility] | | | | | LABORATORY CERNER [...] | [facility] | | | Performed by [facility] [address] | | [facility] | | | [address] [place] | | [facility] | | | [address] | | LABORATORY | | | | | CERNER | + + + + + + + | Specimen | + + | Blood | + + + + + + + | Performing | Address | City/State/Zipcode | Phone Number | | Organization | | | | + + + + + | [facility] | [address] | [place] [address] | | | [facility] | | | | | LABORATORY ALTAGRACIA [...] 70 (L)Comment: eGFR<60 | >=90 mL/min/1.73m2 | [facility] | | | consistent with impaired | | [facility] | | | kidney | | MEDICAL CENTER | | | function.Performed by | | LABORATORY | | | [facility] [address], | | CERNER | | | [place] [address] | | | + + + + + + + | Specimen | + + | Blood | + + + + + + + | Performing | Address | City/State/Zipcode | Phone Number | | Organization | | | | + + + + + | [facility] | [address] | [place] [address] | | | [facility] | | | | | LABORATORY CERNER [...] | | | | | seconds.Performed by [facility] | | | | | [address], | | | | | [place] [address] | | | + + + + + + + | Specimen | + + | Blood | + + + + + + + | Performing | Address | City/State/Zipcode | Phone Number | | Organization | | | | + + + + + | [facility] | [address] | [place] [address] | | | [facility] | | | | | LABORATORY CERNER [...] BRENDAN JACKSONT | | | | | [facility] | | | | | HERNAN RY | | | | | CERNER | + + + +--------- --------+ | Specimen Source | NasalComment: Performed | | [facility] | | | by [facility] [address], | | BRENDAN Yates EART | | | [place], [place] | | [facility] | | |Performed by [facility] [address], [place] | | HERNAN MURRELL | | | | | ALTAGRACIA | + + + +--------- --------+ + + | Specimen | + + | Tissue - Nares | + + + + + + + | Performing | Address | City/State/Zipcode | Phone Number | | Organization | | | | + + + + + | [facility] | [address] | [place], [place] | | | [facility] | | | | | RIVERA FRIAS [...] + + + + + | Specific [place] | 1.010 | 1.001 - 1.030 | [...] | [facility] | | | Performed by [facility] [address] | | [facility] | | | [address] [place] | | MEDICAL CENTER | | | [address] | | LABORATORY | | | | [...] + | [facility] | [address] | [place] [address] | | | [facility] | | | | | LABORATORY CERNER | | | | + + + + + POC Glucose (06/10/20182253) + + + + + | Component | Value | Ref Range | Performed At | + + + + + | Glucose, POC | 129 (H)Comment: | 65 - 99 mg/dL | [facility] | | | Performed by [facility] [address] | | [facility] | | | [address], [place] | | MEDICAL CENTER | | | [address] | | LABORATORY | | | | | CERNER | + + + + + + + | Specimen | + + | Blood | + + + + + + + | Performing | Address | City/State/Zipcode | Phone Number | | Organization | | | | + + + + + | [facility] | [address] | [place] [address] | | | [facility] | | | | | RIVERA FRIAS [...] | | | | | seconds.Performed by [facility] | | | | | [address], | | | | | [place] [address] | | | + + + + + + + | Specimen | + + | Blood | + + + + + + + | Performing | Address | City/State/Zipcode | Phone Number | | Organization | | | | + + + + + | [facility] | [address] | [place] [address] | | | HEART [facility] | | | | | [...] HEART | | | kidney | | [facility] | | | function.Performed by | | LABORATORY | | | [facility] [address], | | [place]RACIA | | | [place] [address] | | | + + + + + + + | Specimen | + + | Blood | + + + + + + + | Performing | Address | City/State/Zipcode | Phone Number | | Organization | | | | + + + + + | [facility] | [address] | [place] [address] | | | [facility] | | | | | LABORATORY ALTAGRACIA [...] [facility] | | | | | [facility] | | | | | [...] | CERNER | | | 3.5Performed by [facility] [address] | | | | | [place] | | | | | [address] | | | + + + + + + + | Specimen | + + | Blood | + + + + + + + | Performing | Address | City/State/Zipcode | Phone Number | | Organization | | | | + + + + + | [facility] | [address] | [place] [address] | | | [facility] | | | | | LABORATORY [place]IA | | | | + + + + + POC Glucose (06/10/2018 1623) + + + + + | Component | Value | Ref Range | Performed At | + + + + + | Glucose, POC | 113 (H)Comment: | 65 - 99 mg/dL | [facility] | | | Performed by [facility] [address] | | [facility] | | | [address] [place] | | MEDICAL CENTER | | | [address] | | LABORATORY | | | | | CERNER | + + + + + + + | Specimen | + + | Blood | + + + + + + + | Performing | Address | City/State/Zipcode | Phone Number | | Organization | | | | + + + + + | [facility] | [address] | [place] [address] | | | [facility] | | | | [...] [facility] | | | | | [facility] | | | | | LABORATORY | | | | | CERNER | + + + + + | Hepatitis C Ab | >11.0 (H)Comment: | 0.0 - 0.9 | [facility] | | | | | [place] | | | | | [facility] | | | [place] | | [...] Amplification test | | | | | ([id number]).Performed At: | | | | | [facility] [id number] | | | | | [facility] [address] | | | | | [place], [place] | | | | | [id number] Daniel | | | | | L Ph:[phone] | | | + + + + + + + | Specimen | + + | Blood | + + + + + + + | Performing | Address | City/State/Zipcode | Phone Number | | Organization | | | | + + + + + | [facility] | [address] | [place] [address] | | | [facility] | | | | [...] | | | | | seconds.Performed by [facility] | | | | | [address], | | | | | [place] [address] | | | + + + + + + + | Specimen | + + | Blood | + + + + + + + | Performing | Address | City/State/Zipcode | Phone Number | | Organization | | | | + + + + + | [facility] | [address] | [place] [address] | | | [facility] | | | | | [facility] | | | | + + + + + ECG 12 lead (06/10/2018 1210) + + + | Narrative | Performed At | + + + | HEART RATE:71 | [facility] | | bpmRR Interval:845 msAtrial Rate:71 msP-R Interval:148 msP | [facility] | | Duration:152 msP Horizontal [place]:32 degP Front [place]:62 degQ Onset:512 | | | msQRSD Interval:110 msQT Interval:416 msQTcB:453 msQTcF:440 msQRS | | | Horizontal [place]:199 degQRS [place]:-83 degI-40 Horizontal [place]:77 degI-40 | | | Front [place]:-74 degT-40 Horizontal [place]:242 degT-40 Front [place]:216 | | | degT Horizontal [place]:84 degT Wave [place]:69 degS-T Horizontal [place]:97 | | | degS-T Front [place]:107 degSeverity:- ABNORMAL ECG -INTERP:SINUS | | | RHYTHMINTERP:NONSPECIFIC IVCD WITH LADINTERP:INFERIOR INFARCT, | | | OLDElectronically signed by: ELIZABETH CAMPBELL 06-12-2018 11:24:19 | | |QTcB:453 ms | | |QTcF:440 ms | | |QRS Horizontal [place]:199 deg | | |QRS [place]:-83 deg | | |I-40 Horizontal [place]:77 deg | | |I-40 Front [place]:-74 deg | | |T-40 Horizontal [place]:242 deg | | |T-40 Front [place]:216 deg | | |T Horizontal [place]:84 deg | | |T Wave [place]:69 deg | | |S-T Horizontal [place]:97 deg | | |S-T Front [place]:107 deg | | |Severity:- ABNORMAL ECG - [...] + + | [facility] RE[facility] | [address] | [place] [address] | [phone] | + + + + + Pulmonary [...] | | | | | seconds.Performed by [facility] | | | | | [address], | | | | | [place] [address] | | | + + + + + + + | Specimen | + + | Blood | + + + + + + + | Performing | Address | City/State/Zipcode | Phone Number | | Organization | | | | + + + + + | [facility] | [address] | [place] [address] | | | [facility] | | | | | LABORATORY CERNER [...] [facility] | | | | | [facility] | | | | | LABORATORY | | | | | CERNER | + + + + + | Hepatitis B Core Ab, | Positive (A) | Negative | [facility] | | Total | | | [facility] | | | | | [facility] | | | | | LABORATORY | | | | | CERNER | + + + + + | Hepatitis C Ab | >11.0 (H)Comment: | 0.0 - 0.9 | [facility] | | | | | [facility] | | | | | [facility] | | | [place] | [...] Amplification test | | | | | ([id number]).Performed At: | | | | | [facility] [id number] | | | | | [address] | | | | | [place], [place] | | | | | [id number] Daniel | | | | | L Ph:[phone] | | | + + + + + | HEP A TOTAL AB | Positive (A) | Negative | [facility] | | | | | [facility] | | | | | [facility] | | | | | [...] + + | [facility] | [address] | [place] [address] | | | [facility] | | | | | LABORATORY CERNER [...] | recommends A1C values of | | [facility] | | | less than 7% [...] | | Average Glucose (eAG) | | [facility] | | | result of LT [...] | | | | | formula.Performed by [facility] | | | | | [address], | | | | | [place] [address] | | | + + + + + + + | Specimen | + + | Blood | + + + + + + + | Performing | Address | City/State/Zipcode | Phone Number | | Organization | | | | + + + + + | [facility] | [address] | [place] [address] | | | [facility] | | | | | LABORATORY CERNER | | | | + + + + + ABO Rh (06/10/2018648) + + + + + | Component | Value | Ref Range | Performed At | + + + + + | ABO | O | | [facility] | | | | | [place] | | | | | [facility] | | | | [facility] | + + + + + | Rh Type | Negative | | [facility] | | | | | [place] | | | | | [facility] | | | | [facility] | + + + + + + + + | Narrative | Performed At | + + + | Specimen Expiration Date: [id number] | [facility] | | | [place] | | | [facility] | | [facility] | + + + + + + + + | Performing | Address | City/State/Zipcode | Phone Number | | Organization | | | | + + + + + | [facility] | [address] | [place] [address] | [phone] | | [place] | | | | | [facility] | | | | [facility] | | | | + + + + + Antibody Screen (06/10/2018648) + + + + + | Component | Value | Ref Range | Performed At | + + + + + | Antibody Screen | Positive | | [facility] | | | | | [place] | | | | | [facility] | | | | [facility] | + + + + + + + + | Narrative | Performed At | + + + | Specimen Expiration Date: [id number] | [facility] | | | [place] | | | [facility] | | [facility] | + + + + + + + + | Performing | Address | City/State/Zipcode | Phone Number | | Organization | | | | + + + + + | [facility] | [address] | [place] [address] | [phone] | | [place] | | | | | [facility] | | | | [facility] | | | | + + + + + Antibody identification (06/10/2018 0046) + + + + + | Component | Value | Ref Range | Performed At | + + + + + | Antibody ID | Anti-Jka | | [facility] | | | | | [place] | | | | | [facility] | | | | [facility] | + + + + + + + + | Narrative | Performed At | + + + | Specimen Expiration Date: [id number] | [facility] | | | [place] | | | [facility] | | [facility] | + + + + + + + + | Performing | Address | City/State/Zipcode | Phone Number | | Organization | | | | + + + + + | [facility] | [address] | [place] [address] | [phone] | | [facility] | | | | | [facility] | | | | [facility] | | | | + + + + + Type and Screen (06/10/201845) + + + + + | Component | Value | Ref Range | Performed At | + + + + + | ABO | O | | [facility] | | | | | [facility] | | | [facility] | + + + + + | Rh Type | Negative | | [facility] | | | | | [facility] | | [facility] | + + + + + | Antibody Screen | Positive | | [facility] | | | | | [facility] | | | | [facility] | + + + + + + + | Specimen | + + | Blood | + + + + + | Narrative | Performed At | + + + | Specimen Expiration Date: [id number] | [facility] | | | [facility] | | [facility] | + + + + + + + + | Performing | Address | City/State/Zipcode | Phone Number | | Organization | | | | + + + + + | [facility] | [address] | [place] [address] | [phone] | | [facility] | | [...] | | | | | seconds.Performed by [facility] | | | | | [address], | | | | | [place] [address] | | | + + + + + + + | Specimen | + + | Blood | + + + + + + + | Performing | Address | City/State/Zipcode | Phone Number | | Organization | | | | + + + + + | [facility] | [address] | [place] [address] | | | [facility] | | | | | RIVERA FRIAS [...] | proximal 40% LAD, 95% ostial septal wheel aligner, 70% mid and distal LAD, 100% mid [...] | | | LAD, 95% ostial septal wheel aligner, 70% mid and distal LAD, 100% mid [...] + | Performing | Address | City/State/[facility] | Phone Number | | Organization [...] lateral castillo from | | | prior [place]. 4. Mild destinee infarct ischemia. LARGE SEVERE inferior and | | | Lateral [place]. 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 | | Duration:176 msP Horizontal [place]:19 degP Front [place]:70 degQ Onset:512 | | | msQRSD Interval:110 msQT Interval:444 msQTcB:480 msQTcF:467 msQRS | | | Horizontal [place]:157 degQRS [place]:-77 degI-40 Horizontal [place]:75 degI-40 | | | Front [place]:-59 degT-40 Horizontal [place]:240 degT-40 Front [place]:267 | | | degT Horizontal [place]:91 degT Wave [place]:68 degS-T Horizontal [place]:98 | | | degS-T Front [place]:103 degSeverity:- ABNORMAL ECG -INTERP:SINUS | | | RHYTHMINTERP:NONSPECIFIC IVCD WITH LADINTERP:INFERIOR INFARCT, | | | OLDElectronically signed by: ELIZABETH CAMPBELL 06-12-2018 11:25:24 | | |QTcB:480 ms | | |QTcF:467 ms | | |QRS Horizontal [place]:157 deg | | |QRS [place]:-77 deg | | |I-40 Horizontal [place]:75 deg | | |I-40 Front [place]:-59 deg | | |T-40 Horizontal [place]:240 deg | | |T-40 Front [place]:267 deg | | |T Horizontal [place]:91 deg | | |T Wave [place]:68 deg | | |S-T Horizontal [place]:98 deg | | |S-T Front [place]:103 deg | | |Severity:- ABNORMAL ECG - [...] + + | [facility]AST[facility] | [address] | [place] [address] | [phone] | + + + + + Magnesium (06/09/20187) + + + +--------- --------+ | Component | Value | Ref Range | Performe d At | + + + +--------- --------+ | Magnesium | 2.1Comment: Performed | 1.7 - 2.4 mg/dL | [facility] | | | by [facility] [address], | | [facility] | | | [place] [address] | | [facility] | | |Performed by [facility] [address], [place] [address] | | [facility] | | | | | CERNER | + + + +--------- --------+ + + | Specimen | + + | Blood | + + + + + + + | Performing | Address | City/State/Zipcode | Phone Number | | Organization | | | | + + + + + | [facility] | [address] | [place] [address] | | | [facility] | | | | | LABORATORY ALTAGRACIA [...] [facility] | | | | | [facility] | | | | | [...] L | [facility] | | | by [facility] [address], | | [facility] | | | [place] [address] | | [facility] | | |Performed by [facility] [address], [place] [address] | | LABORATORY | | | | | ALTAGRACIA | + + + --+ + + + | Specimen | + + | Blood | + + + + + + + | Performing | Address | City/State/Zipcode | Phone Number | | Organization | | | | + + + + + | [facility] | [address] | [place] [address] | | | [facility] | | | | | RIVERA FRIAS [...] 0.82 | 0.50 - 1.00 mg/dL | [facility] | | Serum/Plasma | | | [facility] | | | | | MEDICAL CENTER | | | | | LABORATORY | | | | | CERNER | + + + + + | GLUCOSE | 96 | 65 - 99 mg/dL | [facility] | | | | | [facility] | | | | | [facility]ENTER | | | | | LABORATORY | | | | | CERNER | + + + + + | Estimated GFR | 76 (L)Comment: eGFR<60 | >=90 mL/min/1.73m2 | [facility] | | | consistent with impaired | | [facility] | | | kidney | | MEDICAL CENTER | | | function.Performed by | | LABORATORY | | | [facility] [address], | | CERNER | | | [place] [address] | | | + + + + + + + | Specimen | + + | Blood | + + + + + + + | Performing | Address | City/State/Zipcode | Phone Number | | Organization | | | | + + + + + | [facility] | [address] | [place] [address] | | | [facility] | | | | | RIVERA FRIAS [...] read back by LEANN Sandhu | | [facility] | | | at 06/08/2018 10:03:33 [...] | | | | | TroponinPerformed by [facility] | | | | | [address], | | | | | [place] | | | + + + + + + + | Specimen | + + | Blood | + + + + + + + | Performing | Address | City/State/Zipcode | Phone Number | | Organization | | | | + + + + + | [facility] | [address] | [place] | | | [facility] | | | | | RIVERA FRIAS | | | | + + + + + ECG 12 lead (06/08/2018 0430) + + + | Narrative | Performed At | + + + | HEART RATE:94 | [facility] | | bpmRR Interval:638 msAtrial Rate:95 msP-R Interval:148 msP | TRACEMASTER | | Duration:200 msP Horizontal [place]:19 degP Front [place]:58 degQ Onset:512 | | | msQRSD Interval:110 msQT Interval:404 msQTcB:506 msQTcF:469 msQRS | | | Horizontal [place]:184 degQRS [place]:265 degI-40 Horizontal [place]:78 degI-40 | | | Front [place]:269 degT-40 Horizontal [place]:240 degT-40 Front [place]:259 | | | degT Horizontal [place]:77 degT Wave [place]:63 degS-T Horizontal [place]:83 | | | degS-T Front [place]:99 degSeverity:- ABNORMAL ECG -INTERP:SINUS | | | RHYTHMINTERP:NONSPECIFIC IVCD WITH LADINTERP:INFERIOR INFARCT, | | | OLDElectronically signed by: ELIZABETH CAMPBELL 06-12-2018 11:24:43 | | |QTcB:506 ms | | |QTcF:469 ms | | |QRS Horizontal [place]:184 deg | | |QRS [place]:265 deg | | |I-40 Horizontal [place]:78 deg | | |I-40 Front [place]:269 deg | | |T-40 Horizontal [place]:240 deg | | |T-40 Front [place]:259 deg | | |T Horizontal [place]:77 deg | | |T Wave [place]:63 deg | | |S-T Horizontal [place]:83 deg | | |S-T Front [place]:99 deg | | |Severity:- ABNORMAL ECG - [...] [address] | [place] [address] | [phone] | + + + + + Troponin [...] to and read back by | | [facility] | | | luis soto at [...] TroponinPerformed by | | | | | [facility] [address], | | | | | [place] [address] | | | + + + + + + + | Specimen | + + | Blood | + + + + + + + | Performing | Address | City/State/Zipcode | Phone Number | | Organization | | | | + + + + + | [facility] | [address] | [place] [address] | | | [facility] | | | | | RIVERA FRIAS | | | | + + + + + Magnesium (06/08/2018315) + + + +--------- --------+ | Component | Value | Ref Range | Performe d At | + + + +--------- --------+ | Magnesium | 1.8Comment: Performed | 1.7 - 2.4 mg/dL | [facility] | | | by [facility] [address], | | [place] | | | [place], [place] | | [facility] | | |Performed by [facility] [address], [place] | | LABORATO RY | | [...] [facility] | [address] | [place], [place] | | | [facility] [...] [facility] | | | | | [facility] | | | | | LABORATORY | | | | | ALTAGR[place]IA | + + + + + | Estimated GFR | 81 (L)Comment: eGFR<60 | >=90 mL/min/1.73m2 | [facility] | | | consistent with impaired | | [facility] | | | kidney | | [facility]ICAL [facility]ENTER | | | function.Performed by | | LABORATORY | | | [facility] [address], | | [place] | | | [place] [address] | | | + + + + + + + | Specimen | + + | Blood | + + + + + + + | Performing | Address | City/State/Zipcode | Phone Number | | Organization | | | | + + + + + | [facility] | [address] | [place] [address] | | | [facility] | | | | | LABORATORY CERNER [...] and read back by 6S | | [facility] | | | MATTI Herrera at [...] | | | | | TroponinPerformed by [facility] | | | | | [address], | | | | | [place] [address] | | | + + + + + + + | Specimen | + + | Blood | + + + + + + + | Performing | Address | City/State/Zipcode | Phone Number | | Organization | | | | + + + + + | [facility] | [address] | [place] [address] | | | [facility] | | | | | LABORATORY CERNER [...] | and read back by 6S | [facility] | | | HECTOR Mcclain at 1710 [...] TroponinPerformed by | | | | | [facility] [address], | | | | | [place] [address] | | | + + + + + + + | Specimen | + + | Blood | + + + + + + + | Performing | Address | City/State/Zipcode | Phone Number | | Organization | | | | + + + + + | [facility] | [address] | [place] [address] | | | [facility] | | | | | LABORATORY ALTAGRACIA [...] | [facility] | | | Performed by [facility] [address] | | [facility] | | | [address] [place], [place] | | MEDICAL CENTER | | | [address] | | LABORATORY | | | | | CERNER | + + + + + + + | Specimen | + + | Blood | + + + + + + + | Performing | Address | City/State/Zipcode | Phone Number | | Organization | | | | + + + + + | [facility] | [address] | [place] [address] | | | [facility] | | | | | LABORATORY CERNER [...] [facility] | | | | | [facility] | | | | | [...] [facility] | | | | | [facility] | | | | | [...] [facility] | | | | | [facility] | | | | | LABORATORY | | | | | CERNER | + + + + + | U Tox Comment | See CommentComment: | | [facility] | | | This entire battery is | | [facility] | | | for screening purposes | | [facility] | | | only. Results are [...] | | | | | battery.Performed by [facility] | | | | | [address], | | | | | [place] [address] | | | + + + + + + + | Specimen | + + | Urine | + + + + + + + | Performing | Address | City/State/[facility] | Phone Number | | Organization | | | | + + + + + | [facility] | [address] | [place] [address] | | | [facility] | | | | | LABORATORY CERNER [...] | and read back by | | [facility] | | | TAYA john | [...] | | | | | [place].Performed by [facility] [address] | | | | | [address] [place] | | | | | [address] | | | + + + + + + + | Specimen | + + | Blood | + + + + + + + | Performing | Address | City/State/Zipcode | Phone Number | | Organization | | | | + + + + + | [facility] | [address] | [place] | | | [facility] | | | | | LABORATORY JAMINNER | | | | + + + + + Myoglobin (06/07/201810) + + + +----- + | Component | Value | Ref Range | Perf ormed At | + + + +----- + | MYOGLOBIN, SERUM | 69Comment: Performed by | 0 - 69 ng/mL | [facility] | | | [facility] [address], | | [facility] | | | [place] | | [facility] | | |Performed by [facility] [address], [place] | | [facility] | | | | | [facility] | + + + +----- + + + | Specimen | + + | Blood | + + + + + + + | Performing | Address | City/State/Zipcode | Phone Number | | Organization | | | | + + + + + | [facility] | [address] | [place] [address] | | | [facility] | | | | | RIVERA FRIAS | | | | + + + + + Lipase (06/07/2018909) + + + + ----+ | Component | Value | Ref Range | Performed At | + + + + ----+ | Lipase | 32Comment: Performed by | 11 - 82 U/L | [facility] | | | [facility] [address], | | [facility] | | | [place] [address] | | MEDICAL CENT ER | | |Performed by [facility] [address], [place] [address] | | LABORATORY | | | | | CERNER | + + + + ----+ + + | Specimen | + + | Blood | + + + + + + + | Performing | Address | City/State/Zipcode | Phone Number | | Organization | | | | + + + + + | [facility] | [address] | [place] [address] | | | [facility] | [...] by | | LABORATORY | | | [facility] [address], | | [place] | | | [place] [address] | | | + + + + + + + | Specimen | + + | Blood | + + + + + + + | Performing | Address | City/State/Zipcode | Phone Number | | Organization | | | | + + + + + | [facility] | [address] | [place] [address] | | | [facility] | | | | | LABORATORY ALTAGRACIA [...] L | [facility] | | | by [facility] [address], | | [facility] | | | [place] [address] | | [facility] | | |Performed by [facility] [address], [place] [address] | | LABORATORY | | | | | CERNER | + + + --+ + + + | Specimen | + + | Blood | + + + + + + + | Performing | Address | City/State/Zipcode | Phone Number | | Organization | | | | + + + + + | [facility] | [address] | [place] [address] | | | [facility] | | | | | LABORATORY CERNER | | | | + + + + + Extra Hold Tube(s) (06/07/2018909) + + + + ---+ | Component | Value | Ref Range | Performed At | + + + + ---+ | Extra Tube | DrawnComment: Performed | | [facility] | | | by [facility] [address], | | [facility] | | | [place] | | [facility] | | |Performed by [facility] [address], [place] | | LABORATORY | | | | | ALTAGR[place]IA | + + + + ---+ + + | Specimen | + + | Blood | + + + + + + + | Performing | Address | City/State/Zipcode | Phone Number | | Organization | | | | + + + + + | [facility] | [address] | [place], [place] | | | [facility] | | | | | LABORATORY CERSAMAN | | | | + + + + + CK Total (06/07/201803) + + + + -----+ | Component | Value | Ref Range | Performed A t | + + + + -----+ | CK TOTAL | 84Comment: Performed by | 30 - 240 U/L | [facility] | | | [facility] [address], | | [facility]CR[facility] T | | | [place] [address] | | MEDICAL [address] | | |Performed by [facility] [address] [place] [address] | | LABORATORY | | | | | CERNER | + + + + -----+ + + | Specimen | + + | Blood | + + + + + + + | Performing | Address | City/State/Zipcode | Phone Number | | Organization | | | | + + + + + | [facility] | [address] | [place] [address] | | | [facility] | | | | | LABORATORY ALTAGRACIA | | | | + + + + + Urinalysis with Microscopic with Culture if Indicated (06/07/201803) + + + + + | Component | Value | Ref Range | Performed At | + + + + + | COLOR | Yellow | | [facility] | | | | | [facility] | | | | | MEDICAL CENTER [...] + + + + + | Specific [place] | 1.020 | 1.001 - 1.030 | [...] [facility] | | | | | [facility] | | | | | LABORATORY | | | | | CERNER | + + + + + | MUCUS UA | None PresentComment: | | [facility] | | | Less than 2 mL | | [facility] | | | submitted. Microscopi | | [facility] | | | c done on [...] | [facility] | | | Performed by [facility] [address] | | [facility] | | | [address] [place] | | [facility] | | | [address] | | LABORATORY | | | | [...] + | [facility] | [address] | [place] [address] | | | [facility] | | | | | RIVERA FRIAS [...] Coronary atherosclerosis of unspecified type of vessel, council or graft | + + | NSTEMI [...] | | | | Mild Pain, Starting [facility] 06/11/18 at | | | | [...] PDT | | | | | Starting [facility] 06/11/18 at 1635, Give | | [...] 8:40 | | | | | on [facility] 06/11/18 at 1700, If unable | [...] | | | | | | [facility] 06/11/18 at 0830, Please | | [...] | | | | | | [facility] 06/11/18 at 1700 | | | [...] | | | | | | [facility] 06/11/18 at 1700, Max dose 1000 [...] | | | Starting [facility] 06/11/18 at 1715, | | | [...] PDT | | | | | Starting [facility] 06/11/18 at 1635, | | | [...] | 9:09 | | | | | Silt 06/07/18 at 0905, For 1 dose, | [...] | | | | | NPO, Daytime 8219-0463 Use NIGHT | | | | | | | DOSE for doses scheduled: | | | | | | | HS, 3AM, Nighttime [id number] Only | | | | | | [...] PDT | | | | | ONCE, [facility] 06/08/18 at 1045, For 1 | | [...] | | | DAILY, First dose on [facility] 06/11/18 | | | | | [...] | 4:15 | | | | | 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
--- OUTSIDE RECORDS SUMMARY | ~2018-07-05 | XMS | Encounter Summary ---
Demographics + + + | Address | [address] | | | [place] [address] | + + + | Home Phone [...] | Author | [facility] | | | and Ankitana | + + + | Organization | [facility] | | | and [...] Providers + +------+ + | Care Operations Trainer Name | Role | Phone | + [...] Description | +--------+---------+ + + + | 06/09/ | Surgery | [facility] | Shad Schuler, | CV Cor Angio | | 2018 | | [facility] | MD [address], | | | | | INTRA OP [address] | [place] [address] | | | | | [address] | [address] | | | | | [address] | | | | | | [phone] | | | +--------+---------+ + + + [...] Discharge Summaries Suresh Segovia RN - 06/15/2018 1557 PDTSALVATORE Greco saw the patient this 06/15/18 and c onfirmed discharge at 1200. ELÍAS Prince and ELÍAS Brown completed the discharge instructions. Th e patient will be getting their new RXs filled at home preferred pharmacy. Unable to fill pr escriptions before pharmacy closed. Pharmacist notified and gave patient number for [facility] to transfer medications in AM. Given night time pain medications prior to leaving. T he AVS was reviewed with patient and family with no pending questions or concerns. All belon gings were collected from the room and sent with the family. The pt is discharging home with family in [place]. New FWW sent with patient. No further questions and all teaching demonstr ated back to RN. Plan for d/c at 1800 when family arrives. Juancho Greco ARNP - 06/15/2018 1201 PDTFormatting of this note may be different from the original. [facility] Discharge [...] precauti ons. She was recently released from detention before arriving at the ER and our licensed social worker has confirmed that she is free to [...] Discontinued Medications lisinopril 20 mg tablet aka: PRINIVIL ZESTRIL Discharged Condition: good Consults: - Diabetic services for blood glucose management. - Physical and occupational therapy for post-op rehab. - [facility]. Disposition: Home with family. Patient was advised to call our office or their supply room clerk with any questions. Follow-Up: Follow-up Information SALVATORE Ventura. Go on 06/23/2018. Specialty: Nurse Practitioner Why: Hospital follow up scheduled at 11:[address] Roa Contact information: [address] [facility] [address] Hemanth Webster MD. Schedule an appointment as soon as possible for a visit on 06/29/2018 . Specialty: Cardiothoracic Surgery Why: 11:30 AM Contact information: [address], [place] [address] [facility] [address] Schedule an appointment as soon as possible for a visit with [facility]. Why: Please call to schedule your 1 month follow-up with cardiology. Contact information: [address] [place] [address] [facility] [address] Time spent on discharge planning: greater than 30 minutes CABG Checklist ACEI/ARB/ARNI prescribed: No - Hypotension Aspirin prescribed: Not addressed Beta mateus (evidence-based) prescribed: Yes Beta mateus prescribed: N/A - LV EF is less than 41% High intensity statin prescribed: Yes Referral to cardiac rehab: Yes Tobacco cessation counseling provided: Yes [facility] [address], [address] [place] [address] Portions of this chart may have been created with Fincon voice recognition software. Occasi onal wrong-word or [...] breath, please call Luis Alfred[facility] estrada at [phone]. 2. For problems or concerns with your incision or your chest, please call [facility]) at [phone]. After Coronary Artery Bypass Surgery When you [...] by medication, call your healthcare pr fuad. [phone] [facility], [address] [place] [address], [place] [id number]. All rights reserve d. This information is [...] | | | | | | infarction) ([facility]), | | | | | | | Polysubstance abuse | | | | | | | ([facility]) | | | | | | [...] + as of this encounter [address] Sherrie Ernestine, LOOM STOP CHECKER - 06/15/2018 1314 PDTSOCIAL WORK PLAN: Discharge with friend INTERVENTION: order to verify pt's disposition at discharge acknowledged. SW met with pt at bedside. Pt states she was brought to [facility] by [facility] but states she is no l onger in custody. No guards at the door. SW Mangle Roll Operator suggested SW contact detention to confirm. SW spoke with [facility] who confirms pt was released. SW spoke with pt regarding discharge plan. Pt plans to discharge to friend's home. SW available should further discharg e planning needs arise. Keith Harp MD - 06/15/2018 2976 PDTFormatting of this note may be different fro m the original. [facility] PATIENT NAME: Smitha Fletcher : [...] 4. No pneum othorax. Signed by: MD Won, Arabella Sign Date/Time: 06/15/2018 6:31 AM Signed by: [...] dilol. 2. Follow-up requested. Keith Harp MD, [facility] Portions of this chart were created with Fincon voice recognition software. Occasional wro ng-word or "sound-alike" substitutions may have occurred due to the inherent limitations of voice recognition software. Please read the chart carefully and recognize, using context, w here those substitutions have occurred.Deonte Lee MD - 06/15/2018 0715 PDTFormattin g of this note may be different from the original. [facility] Pt. Name/Age/: Smitha Fletcher 62 y.o. 1955 Med. Record Number: [id number] Date of admission: 06/07/2018 POD # 4 Procedure: CABG X 3 Surgeon: Eleanor Subjective New complaints: poor sternal precautions. No c/o this morning. Acknowledges that came from [facility]. Not sure where she is going. No [...] signed by: Hector Decker PA-C Cardiothoracic Surgery [facility] [address], [address] [place] [address] 06/15/2018 7:[address] [facility] Agree with detailed plan nicely outlined by Ashley Hamilton, LOOM STOP CHECKER - 06/14/2018 1305 PDTSOCIAL WORK PLAN: TBD INTERVENTION: SW acknowledged order for return to detention. Pt came from detention per chart review and may have to go back there upon DC. SW will continue to follow for DC planning. Frandy Squires ARNP - 06/14/2018 0911 PDTBlood Glucose log reviewed. Patient is stabl e, with controlled blood glucose. Not requiring insulin Diabetes Service will sign off. Medication Reconciliation for diabetes medications has been completed. Please contact us at [phone] should the need arise. Thank you for [...] signed by: Rip Yao M.D. CardioThoracic Surgery [facility] 06/14/2018 9:23 [facility] Pt. Name/Age/: Smitha Fletcher 62 y.o. 1955 Med. Record Number: [id number] Date of admission: 06/07/2018 POD # 3 [...] Intake/Output Summary (Last 24 hours) at 06/14/18 08 Last data filed at 06/13/181999 Gross per [...] P vanessa Sign Date/Time: 06/13/2018 6:46 AM Labs: Recent [...] with the patient is going. Willl have licensed social worker start arrangements. Problem List Patient Active Problem [...] signed by: Hector Decker PA-C Cardiothoracic Surgery [facility] [address], [address] [place] [address] 06/14/2018 8:[address] [facility] Dave Bansal MD - 06/14/2018 0807 PDTFormatting of this note may be different from the original. [facility] PATIENT NAME: Smitha Fletcher : [...] Portions of this chart were created with Fincon voice recognition software. Occasional wro ng-word or "sound-alike" substitutions may have occurred due to the inherent limitations of voice recognition software. Please read the chart carefully and recognize, using context, w here those substitutions have occurred.Frandy Squires, [facility] - 06/13/2018 1437 PDTFormat ting [...] Per RN; she will be discharging from [facility] to detention that she came from. Assessment for glucose [...] by: SALVATORE Elias 06/13/2018 14:53 Diabetes team, [facility] [phone] Dave Bansal MD - 06/13/2018 1027 PDTFormatting of this note may be different from the original. [facility] PATIENT NAME: Smitha Fletcher : [...] Portions of this chart were created with Fincon voice recognition software. Occasional wro ng-word or [...] signed by: Rip Yao M.D. CardioThoracic Surgery [facility] 06/13/2018 9:35 [facility] Pt. Name/Age/: Smitha Fletcher 62 y.o. 1955 Med. Record Number: [id number] Date of admission: 06/07/2018 POD #2 Procedure: [...] 4. No pneumothorax. Signed by: MD Won, rAabella Sign Date/Time: 06/12/2018 4:16 A M Xr [...] signed by: Hector Decker PA-C Cardiothoracic Surgery [facility] [address], [address] [place] [address] 06/13/2018 8:[address] [facility] Kzeia Pérez RN - 06/12/2018 1510 PDTPt a/o. [...] tolerated well. Plan transfer to floor.Yecenia Shirley, [facility] - 06/12/2018 1220 PDTSOCI AL WORK D/C PLAN: TBD INTERVENTION: Sw following for discharge planning. NEXT STEPS: Follow progress and therapy recommendations for discharge planning. ASSESSMENT/CHART REVIEW: Pt resides in [place]. She has Medicare coverage. COPD, is risk for readmission. If pt d oes not need placement she may benefit from home health post acute care. D/C TRANSPORT: TBD BARRIERS TO D/C: Medical stability CONTACTS: Hanna Sethi: [phone] Bansal MD - 06/12/2018 1133 PDTFormatting of this note may be different from the original. [facility] PATIENT NAME: Smitha Fletcher : 1955: AGE: [...] 1.0 0.4 - 1.5 % Comment PS8 KYY924 O2 Content, Arterial 15.7 15.0 - 23.0 [...] 22:29 Result Value Ref Range Product Code R3791E98 UNIT # [id number] UNIT ABO O UNIT RH NEG CROSSMATCH INTERP Compatible Unit Status XM Blood Product Expiration Date and Time Product Blood Type Barcode 9500 Product Code B6542W02 UNIT # [id number] UNIT ABO O UNIT RH NEG CROSSMATCH [...] 6:53 Result Value Ref Range Product Code B2544M96 UNIT # [id number] UNIT ABO O UNIT RH NEG CROSSMATCH INTERP Compatible Unit Status XM Blood Product Expiration Date and Time [id number] Product Blood Type Barcode 9500 POC Glucose [...] may b e different from the original. [facility] Hemanth Webster [...] 1959 06/11/18 1637 06/11/18 1525 06/11/18 1456 06/11/182 WBC 12.1* -- -- 16.3* -- -- [...] is a 62 y.o.femalewith hx substance abuse, AZ and stent [place] [address] Brittnee Sandoval cardiology. She was brought from detention, complaining of severe 8-9/10 burning chest pain [...] - Single Lumen 06/10/18 1446 Right Forearm cvsi-uhr-hdewni catheter sys tem 22 gauge;1 in length [...] - 99 mg/dL Final Comment: Performed by [facility] [address] [place] [address] All pertinent labs and imaging have been [...] this chart may have been created with Fincon voice recognition software. Occasi onal wrong-word or [...] TTE 06/08/18 showed LVEF of 45% with brihahig-nd-uxzgyw hypokinesis of lateral and inferio r castillo. [...] female with a pmhx of polysubstance abuse, CAD/AZ s/p stent (2011), ischemic EFrEF (LVEF of 45%), HTN, bipolar disorder, nicotine dependence and incarce ration that presented from detention with severe left sided chest pain that [...] l purposes. Please refer to attending/resident/physician assistant director of nursing/nurse practitioner note r egarding further patient care. Geno Carver, NEUROPSYCHIATRIST - 06/10/2018 0957 PDTAssessed for Pulmonary Rehab. [...] TTE on 018 revealed LVEF = 45%, tqopydsv-jk-ajtrsq hypokinesis of lateral and inferior castillo, julina l annular calcification & mild aortic stenosis. [...] Complaint: Chest pain Hospital Course: 62F PMH CAD/AZ s/p stent (2011), ischemic HFrEF (LVEF = 45%), HTN, polysubstance abuse (met hamphetamine & marijuana), HCV, bipolar disorder, nicotine dependence and incarceration pres ented from detention w/ severe, burning, substernal chest pain w/ radiation to left shoulder and associated nausea and vomiting. Workup in ED revealed troponin elevation (peak 0.311 this admission) and patient was admitt ed for further workup and management w/ cardiology. Labs in ED also revealed UDS positive fo r amphetamine, methamphetamine, benzodiazepines and opiates. TTE revealed LVEF = 45%, nrqwqewy-mk-avgymw hypokinesis of lateral and inferior castillo, mitr [...] is a 62 y.o.femalewith hx substance abuse, AZ and stent placement in [address] Sandoval cardiology. She was brought from detention, complaining of severe 8-9/10 burning chest pain [...] hypokinesis present but the patient has has AZ's in the past . Mild LVH. Stress [...] Signs 06/07 700 - 06/08 0659 06/08 07 - 06/09 0659 06/09 700 - 06/09 [...] Single Lumen 06/09/18 0836 Left Distal Forearm xxrs-jvz-bvzddh cathet er system 20 gauge;1 1/4 in [...] this chart may have been created with Fincon voice recognition software. Occasi onal wrong-word or [...] DATE: 06/07/2018 SERVICE DATE: 06/09/18 PRIMARY CARE: Yolanda Lee [facility] Jeffy Ramos MD Internal Medicine Resident CARDIOLOGY DAILY PROGRESS NOTE 06/09/18 During the visit, I personally interviewed and examined the patient. I confirmed the martinez c omponents of the history and PE. I reviewed the note as written by the resident provider, lamar espinosa discussed the patient. I agree with the [...] TTE on 018 revealed LVEF = 45%, bqwxrtdg-ve-xgxmht hypokinesis of lateral and inferior castillo, julian [...] Complaint: Chest pain Hospital Course: 62F PMH CAD/AZ s/p stent (2011), ischemic HFrEF (LVEF = 45%), HTN, polysubstance abuse (met hamphetamine & marijuana), HCV, bipolar disorder, nicotine dependence and incarceration pres ented from detention w/ severe, burning, substernal chest pain w/ radiation to left shoulder and associated nausea and vomiting. Workup in ED revealed troponin elevation (peak 0.311 this admission) and patient was admitt ed for further workup and management w/ cardiology. Labs in ED also revealed UDS positive fo r amphetamine, methamphetamine, benzodiazepines and opiates. TTE revealed LVEF = 45%, rdggdczo-ka-kyghmi hypokinesis of lateral and inferior castillo, mitr [...] 62 y.o. female with hx substance abuse, AZ and stent [place] [address] Riya banuelos cardiology. She was brought from detention, complaining on sever -06/15 burning chest pain [...] hypokinesis present but the patient has has AZ's in the past . Mild LVH. Stress [...] for abdominal pain. Objective: Vital Signs 06/06 07 - 06/07 0659 06/07 07 - 06/08 0659 06/08 07 - 06/08 1625 Most Rec ent Temp [...] 06/07/18 1545 Right Anterior (palmar);Medial Forearm ove d-ozx-gbsdff catheter system 20 gauge;other (see comments) 1 [...] this chart may have been created with Fincon voice recognition software. Occasi onal wrong-word or [...] LABS: Reviewed today Recent Labs 06/08/18 0921 06/08/186 06/07/18205006/07/18 1135 06/07/18 0910 06/07/18 0903 WBC [...] Portions of this chart were created with Fincon voice recognition software. Occasional wro ng-word or "sound-alike" substitutions may have occurred due to the inherent limitations of voice recognition software. Please read the chart carefully and recognize, using context, w here those substitutions have occurred.Rhiannon Marcus RN - 06/07/2018 1509 [id number] ed to floor. Somunlent. Asking very [...] | Visit | | GABRIEL [address] [facility] [address] | | | | | | [address] [place], | | | | | | [place] [address] | | | | | | [phone] | | | | | | | | +--------+---------+ + + + + +--------+ + + | Name | Priori | Associated Diagnoses | Date/Time | | | ty | | | + +--------+ + + | ECG 12 lead | STAT | | 06/07/201856 PDT | + +--------+ + + | ECG 12 lead | STAT | | 06/07/2018 1144 PDT | + +--------+ + + | Red Blood Cells | Routin | | 06/11/2018 151 PDT | | (PRBC-INTRAOP)-Transfuse | e | [...] for this | | | e | 2039 PDT | | procedure are in the [...] + + | TYPE AND SCREEN | STAT [...] +--------+ + + + | PTT | Timed | 06/11/2018 | | Results for this | | | | 0312 PDT | | procedure are in the | | | | | | results section. | + +--------+ + + + | PROTIME INR | Timed | 06/11/2018 | | Results for this | | | | 2 PDT | | procedure are in the | | | | | | results section. | + +--------+ + + + | CBC NO DIFFERENTIAL | Timed | 06/11/2018 | | Results for this | | | | 311 PDT | | procedure are in the | | | | | | results section. | + +--------+ + + + | BASIC METABOLIC | Timed | 06/11/2018 | | Results for this | | PANEL | | 2 PDT | | procedure are in the | | | | | | results section. | + +--------+ + + + | MRSA NAAT | Routin | 06/11/2018 | | Results for this | | | e | 0 PDT | | procedure are in the [...] +--------+ + + + | PTT | Routin | 06/10/2018 [...] | + +--------+ + + + | HEPATITIS PANEL, | Routin | 06/10/2018 | | Results for this | | ACUTE | e | 1409 PDT | | procedure are in the | | | | | | results section. | + +--------+ + + + | PTT | Timed | 06/10/2018 [...] | + +--------+ + + + | PFT PULMONARY | KIRAN | 06/10/2018 | | Results for this | | FUNCTION TESTING | | 1156 PDT | | procedure are in the | | ORDERS | | | | results section. | + +--------+ + + + | HEPATITIS PANEL, | Routin | 06/10/2018 | | Results for this | | CHRONIC | e | 0655 PDT | | procedure are in the | | | | | | results section. | + +--------+ + + + | PTT | Timed | 06/10/2018 | | Results for this | | | | 0655 PDT | | procedure are in the | | | | | | results section. | + +--------+ + + + | HEMOGLOBIN A1C | Routin | 06/10/2018 | | Results for this | | | e | 0655 PDT | | procedure are in the | | | | | | results section. | + +--------+ + + + | ABO RH | Routin | 06/10/2018 | | Results for this | | | e | 0649 PDT | | procedure are in the | | | | | | results section. | + +--------+ + + + | ANTIBODY SCREEN | Routin | 06/10/2018 | | Results for this | | | e | 0649 PDT | | procedure are in the | | | | | | results section. | + +--------+ + + + | ANTIBODY ID | STAT | 06/10/2018 | | Results for this | | | | 0046 PDT | | procedure are in the | | | | | | results section. | + +--------+ + + + | TYPE AND SCREEN | STAT | 06/10/2018 | | Results for this | | | | 0046 PDT | | procedure are in the | | | | | | results section. | + +--------+ + + + | PTT | Routin | 06/10/2018 | | Results for this | | | e | 0046 PDT | | procedure are in the | | | | | | results section. | + +--------+ + + + | CV LV | Routin | 06/09/2018 | | Results for this | | | e | 1309 PDT | | procedure are in the | | | | | | results section. | + +--------+ + + + | CV LHC | Routin | 06/09/2018 | | Results for this | | | e | 1309 PDT | | procedure are in the | | | | | | results section. | + +--------+ + + + | CV COR ANGIO | Routin [...] + +--------+ + + + | NM NUCLEAR STRESS | Routin [...] | + +--------+ + + + | MAGNESIUM | Routin | 06/09/2018 [...] | + +--------+ + + + | MAGNESIUM | Routin | 06/08/2018 | | Results for this | | | e | 0316 PDT | | procedure are in the | | | | | | results section. | + +--------+ + + + | RENAL FUNCTION PANEL | Routin [...] 1144 PDT | | | + +--------+ + + + | CK TOTAL AND CK-MB | Add-On | 06/07/2018 | | Results for this | | | | 1135 PDT | | procedure are in the | | | | | | results section. | + +--------+ + + + | ECG 12 LEAD | STAT | 06/07/2018 | | | | | | 0956 PDT | | | + +--------+ + + + | XR CHEST PA AND | [...] +--------+ + + + | MYOGLOBIN | STAT | 06/07/2018 | | Results for this | | | | 0910 PDT | | procedure are in the | | | | | | results section. | + +--------+ + + + | LIPASE | STAT | 06/07/2018 | | Results for this | | | | 0910 PDT | | procedure are in the | | | | | | results section. | + +--------+ + + + | COMPREHENSIVE | STAT | 06/07/2018 [...] | + +--------+ + + + | CK TOTAL | Add-On | 06/07/2018 | | Results for this | | | | 0903 PDT | | procedure are in the | | | | | | results section. | + +--------+ + + + | ARRHYTHMIA MONITOR - | | 06/07/2018 | | Results for this | | EXTERNAL SCAN | | 0000 PDT | | procedure are in the | | | | | | results section. | + +--------+ + + + in this encounter Results CBC no [...] | [facility] | | | Performed by [facility] [address] | | [facility] | | | [place] | | [facility] | | | [address] | | LABORATORY | | | | | [place] | + + + + + + + | Specimen | + + | Blood | + + + + + + + | Performing | Address | City/State/Zipcode | Phone Number | | Organization | | | | + + + + + | [facility] | [address] | [place] [address] | | | [facility] | | | | | LABORATORY [facility] | | | | + + + + + Basic Metabolic Panel (06/15/201823) + + + + + | Component [...] by | | LABORATORY | | | [facility] [address], | | [place] | | | [place] [address] | | | + + + + + + + | Specimen | + + | Blood | + + + + + + + | Performing | Address | City/State/Zipcode | Phone Number | | Organization | | | | + + + + + | [facility] | [address] | [place] [address] | | | [facility] | | | | | [place] | | | | + + + + + XR Chest 2 Vws (06/15/2018625) + + + | Narrative | Performed [...] + + + | Product Code | [id number] | | [facility] | | | | | [place] | | | | | [facility] | | | [facility] | + + + + + | UNIT # | [id number] | | [facility] | | | | | [place] | | | | | [facility] | | | | [facility] | + + + + + | UNIT ABO | O | | [facility] | | | | | [place] | | | | | [facility] | | | | [facility] | + + + + + | UNIT RH | NEG | | [facility] | | | | | [place] | | | | | [facility] | | | | [facility] | + + + + + | CROSSMATCH INTERP | Compatible | | [facility] | | | | | [place] | | | | | [facility] | | | | [facility] | + + + + + | Unit Status | RE | | [facility] | | | | | [place] | | | | | [facility] | | | | [facility] | + + + + + | Blood Product | [id number] | | [facility] | | Expiration Date and | | | [place] | | Time | | | [facility] | | | | [facility] | + + + + + | Product Blood Type | 9500 | | [facility] | | Barcode | | | [place] | | | | | [facility] | | | | | [facility] | + + + + + + + + | Narrative | Performed At | + + + | Specimen Expiration Date: [id number] | [facility] | | | [place] | | | [facility] | + + + + + + + + | Performing | Address | City/State/Zipcode | Phone Number | | Organization | | | | + + + + + | RE[facility] | [address] | [place] [address] | [phone] | | [place] | | | | | [facility] [...] | [facility] | | | Performed by [facility] [address] | | [facility] | | | [place] | | [facility] | | | [address] | | LABORATORY | | | | [...] [address] | [place] [address] | | | [facility] | | | | | LABORATORY [facility] | | | | + + + + + Red Blood Cells (06/14/20181211) + + + + + | Component | Value | Ref Range | Performed At | + + + + + | Product Code | [id number] | | [facility] | | | | | [place] | | | | | [facility] | | | | [facility] | + + + + + | UNIT # | [id number] | | [facility] | | | | | [place] | | | | | [facility] | | | | | [facility] | + + + + + | UNIT ABO | O | | [facility] LAB | | | | | [place] | | | | | [facility] | | | | | [facility] | + + + + + | UNIT RH | NEG | | [facility] LAB | | | | | [place] | | | | | [facility] | | | | | [facility] | + + + + + | CROSSMATCH INTERP | Compatible | | [facility]FER[facility] LAB | | | | | [place] | | | | | [facility] | | | | | [facility] | + + + + + | Unit Status | IS | | [facility]FER[facility] LAB | | | | | [place] | | | | | [facility] | | | | | [facility] | + + + + + | Blood Product | [id number] | | REFERENCE [facility] | | Expiration Date and | | | [place] | | Time | | | [facility] | | | [facility] | + + + + + | Product Blood Type | 9500 | | REFERENCE LAB | | Barcode | | | [place] [facility] | | | | | [facility] | [facility] | + + + + + | Product Code | [id number] | | REFERENCE LAB | | | | | [place] | | | | | [facility] | | | [facility] | + + + + + | UNIT # | [id number] | | REFERENCE LAB | | | | | [place] [facility] | | | | | [facility] | + + + + + | UNIT ABO | O | | REFERENCE LAB | | | | | [place] [facility] | | | | | [facility] | + + + + + | UNIT RH | NEG | | REFERENCE LAB | | | | | [facility] [facility] | | | | | [facility] | + + + + + | CROSSMATCH INTERP | Compatible | | REFERENCE LAB | | | | | [facility] [facility] | | | | | [facility] | + + + + + | Unit Status | IS | | REFERENCE LAB | | | | | [place] [facility] | | | | | [facility] | + + + + + | Blood Product | [id number] | | REFERENCE LAB | | Expiration Date and | | | [place] | | Time | | | [facility] | + + + + + | Product Blood Type | 9500 | | REFERENCE LAB | | Barcode | | | [facility] | | | | | [facility] | + + + + + + + + | Narrative | Performed At | + + + | Specimen Expiration Date: [id number] | REFERENCE [facility] | | | [place] | | | [facility] | + + + + + + + + | Performing | Address | City/State/Zipcode | Phone Number | | Organization | | | | + + + + + | RE[facility]ENCE LAB | [address] | [place] [address] | [phone] | | [place] | | | | | [facility] [...] | [facility] | | | Performed by [facility] [address] | | [facility] | | | [address] [place], [place] | | [facility] | | | [address] | | LABORATORY | | | | | JAMINNER | + + + + + + + | Specimen | + + | Blood | + + + + + + + | Performing | Address | City/State/Zipcode | Phone Number | | Organization | | | | + + + + + | [facility] | [address] | [place] [address] | | | [facility] | | | | | LABORATORY CERNER | | | | + + + + + POC Glucose (06/14/20181) + + + + + | Component | Value | Ref Range | Performed At | + + + + + | Glucose, POC | 148 (H)Comment: | 65 - 99 mg/dL | [facility] | | | Performed by [facility] [address] | | [facility] | | | [address], [place] | | MEDICAL CENTER | | | [address] | | LABORATORY | | | | | CERNER | + + + + + + + | Specimen | + + | Blood | + + + + + + + | Performing | Address | City/State/Zipcode | Phone Number | | Organization | | | | + + + + + | [facility] | [address] | [place] [address] | | | [facility] | | | | | LABORATORY [place] | | | | + + + + + POC Glucose (06/13/20182038) + + + + + | Component | Value | Ref Range | Performed At | + + + + + | Glucose, POC | 165 (H)Comment: | 65 - 99 mg/dL | [facility] | | | Performed by [facility] [address] | | [facility] | | | [address], [place] | | MEDICAL CENTER | | | [address] | | LABORATORY | | | | | CERNER | + + + + + + + | Specimen | + + | Blood | + + + + + + + | Performing | Address | City/State/Zipcode | Phone Number | | Organization | | | | + + + + + | [facility] | [address] | [place] [address] | | | [facility] | [...] | [facility] | | | Performed by [address] | | [facility] | | | [address] [place], [place] | | [facility] | | | [address] | | LABORATORY | | | | | JAMINNER | + + + + + + + | Specimen | + + | Blood | + + + + + + + | Performing | Address | City/State/Zipcode | Phone Number | | Organization | | | | + + + + + | [facility] | [address] | [place] [address] | | | [facility] | | | | | LABORATORY CERNER | | | | + + + + + POC Glucose (06/13/2018 1120) + + + + + | Component | Value | Ref Range | Performed At | + + + + + | Glucose, POC | 131 (H)Comment: | 65 - 99 mg/dL | [facility] | | | Performed by [facility] [address] | | [facility] | | | [address], [place] | | MEDICAL CENTER | | | [address] | | LABORATORY | | | | | CERNER | + + + + + + + | Specimen | + + | Blood | + + + + + + + | Performing | Address | City/State/Zipcode | Phone Number | | Organization | | | | + + + + + | [facility] | [address] | [place] [address] | | | [facility] | | | | | [place] | | | | + + + + + POC Glucose (06/13/2018624) + + + + + | Component | Value | Ref Range | Performed At | + + + + + | Glucose, POC | 159 (H)Comment: | 65 - 99 mg/dL | [facility] | | | Performed by [facility] [address] | | [facility] | | | [place] | | [facility] | | | [address] | | LABORATORY | | | | | CERNER | + + + + + + + | Specimen | + + | Blood | + + + + + + + | Performing | Address | City/State/Zipcode | Phone Number | | Organization | | | | + + + + + | [facility] | [address] | [place] [address] | | | [facility] | [...] + | Presley Dumont Results In - 06/13/2018 0650 PDT | [...] | [facility] | | | Performed by [facility] [address] | | [facility] | | | [address] [place], [place] | | MEDICAL CENTER | | | [address] | | LABORATORY | | | | | CERNER | + + + + + + + | Specimen | + + | Blood | + + + + + + + | Performing | Address | City/State/Zipcode | Phone Number | | Organization | | | | + + + + + | [facility] | [address] | [place] [address] | | | [facility] | | | | | [...] by | | LABORATORY | | | [facility] [address], | | CERNER | | | [place] [address] | | | + + + + + + + | Specimen | + + | Blood | + + + + + + + | Performing | Address | City/State/Zipcode | Phone Number | | Organization | | | | + + + + + | [facility] | [address] | [place] [address] | | | [facility] | | | | | [place] | | | | + + + + + POC Glucose (06/13/2018241) + + + + + | Component | Value | Ref Range | Performed At | + + + + + | Glucose, POC | 152 (H)Comment: | 65 - 99 mg/dL | [facility] | | | Performed by [facility] [address] | | [facility] | | | [place] | | MEDICAL CENTER | | | [address] | | LABORATORY | | | | | CERNER | + + + + + + + | Specimen | + + | Blood | + + + + + + + | Performing | Address | City/State/Zipcode | Phone Number | | Organization | | | | + + + + + | [facility] | [address] | [place] [address] | | | [facility] | | | | | LABORATORY CERNER | | | | + + + + + POC Glucose (06/12/20180) + + + + + | Component | Value | Ref Range | Performed At | + + + + + | Glucose, POC | 172 (H)Comment: | 65 - 99 mg/dL | [facility] | | | Performed by [facility] [address] | | [facility] | | | [address] [place], [place] | | [facility] | | | [address] | | LABORATORY | | | | [...] [address] | [place] [address] | | | [facility] | | | | | LABORATORY CERNER | | | | + + + + + POC Glucose (06/12/2018 1641) + + + + + | Component | Value | Ref Range | Performed At | + + + + + | Glucose, POC | 132 (H)Comment: | 65 - 99 mg/dL | [facility] | | | Performed by [facility] [address] | | [facility] | | | [address], [place] | | MEDICAL CENTER | | | [address] | | LABORATORY | | | | | CERNER | + + + + + + + | Specimen | + + | Blood | + + + + + + + | Performing | Address | City/State/Zipcode | Phone Number | | Organization | | | | + + + + + | [facility] | [address] | [place] [address] | | | [facility] | | | | | LABORATORY CERNER | | | | + + + + + POC Glucose (06/12/2018 1602) + + + + + | Component | Value | Ref Range | Performed At | + + + + + | Glucose, POC | 126 (H)Comment: | 65 - 99 mg/dL | [facility] | | | Performed by [facility] [address] | | [facility] | | | [place] | | [facility] | | | [address] | | LABORATORY | | | | [...] [address] | [place] [address] | | | [facility] | | | | | LABORATORY CERNER | | | | + + + + + POC Glucose (06/12/2018 1227) + + + + + | Component | Value | Ref Range | Performed At | + + + + + | Glucose, POC | 177 (H)Comment: | 65 - 99 mg/dL | [facility] | | | Performed by [facility] [address] | | [facility] | | | [place] | | [facility] | | | [address] | | LABORATORY | | | | | CERNER | + + + + + + + | Specimen | + + | Blood | + + + + + + + | Performing | Address | City/State/Zipcode | Phone Number | | Organization | | | | + + + + + | [facility] | [address] | [place] [address] | | | [facility] | | | | | LABORATORY [place] | | | | + + + + + POC Glucose (06/12/2018 0659) + + + +-------- ---------+ | Component | Value | Ref Range | Perform ed At | + + + +-------- ---------+ | Glucose, POC | 98Comment: Performed by | 65 - 99 mg/dL | [facility] | | | [facility] [address], | | [facility] | | | [place], [place] | | [facility] | | |Performed by [facility] [address], [place], [place] | | LABORAT ORY | | | | | CERNER | + + + +-------- ---------+ + + | Specimen | + + | Blood | + + + + + + + | Performing | Address | City/State/Zipcode | Phone Number | | Organization | | | | + + + + + | [facility] | [address] | [place], [place] | | | [facility] | | | | | LABORATORY CERNER | | | | + + + + + POC Glucose (06/12/2018599) + + + + + | Component | Value | Ref Range | Performed At | + + + + + | Glucose, POC | 100 (H)Comment: | 65 - 99 mg/dL | [facility] | | | Performed by [facility] [address] | | [facility] | | | [address] [place], [place] | | [facility] | | | [address] | | LABORATORY | | | | [...] [address] | [place] [address] | | | [facility] | | | | | LABORATORY [place] | | | | + + + + + POC Glucose (06/12/2018 0508) + + + +-------- ---------+ | Component | Value | Ref Range | Perform ed At | + + + +-------- ---------+ | Glucose, POC | 87Comment: Performed by | 65 - 99 mg/dL | [facility] | | | [facility] [address], | | [facility] | | | [place] [address] | | [facility] | | |Performed by [facility] [address] [facility] [address], [place] [address] | | LABORAT ORShahnaz | | | | | CERNER | + + + +-------- ---------+ + + | Specimen | + + | Blood | + + + + + + + | Performing | Address | City/State/Zipcode | Phone Number | | Organization | | | | + + + + + | [facility] | [address] | [place] [address] | | | [facility] | | | | | LABORATORY [place] [...] mg/dL | [facility] | | | [facility] [address], | | [facility] | | | [place] [address] | | [facility] | | |Performed by [facility] [address], [place] [address] | | LABORAT [facility] | | | | | CERNER | + + + +-------- ---------+ + + | Specimen | + + | Blood | + + + + + + + | Performing | Address | City/State/Zipcode | Phone Number | | Organization | | | | + + + + + | [facility] | [address] | [place] [address] | | | [facility] | | | | | [place] | | | | + + + + + ECG 12 lead (06/12/2018311) + + + | Narrative | Performed At | + + + | HEART RATE:60 | [facility] | | bpmRR Interval:1000 msAtrial Rate:61 msP-R Interval:176 msP | [facility] | | Duration:184 msP Horizontal Friendship:5 degP Front Friendship:55 degQ Onset:508 | | | msQRSD Interval:104 msQT Interval:452 msQTcB:452 msQTcF:452 msQRS | | | Horizontal Friendship:129 degQRS Friendship:-53 degI-40 Horizontal Friendship:77 degI-40 | | | Front Friendship:-44 degT-40 Horizontal Friendship:204 degT-40 Front Friendship:-83 | | | degT Horizontal Friendship:95 degT Wave Friendship:39 degS-T Horizontal Friendship:79 | | | degS-T Front Friendship:49 degSeverity:- ABNORMAL ECG -INTERP:SINUS | | | RHYTHMINTERP:CONSIDER RIGHT VENTRICULAR HYPERTROPHYINTERP:PROBABLE | | | INFERIOR INFARCT, AGE INDETERMINATEINTERP:BORDERLINE ST ELEVATION, | | | ANTERIOR LEADSElectronically signed by: ELIZABETH CAMPBELL 06-12-2018 | | | 07:37:14 | | |QRS Horizontal Friendship:129 deg | | |QRS Friendship:-53 deg | | |I-40 Horizontal Friendship:77 deg | | |I-40 Front Friendship:-44 deg | | |T-40 Horizontal Friendship:204 deg | | |T-40 Front Friendship:-83 deg | | |T Horizontal Friendship:95 deg | | |T Wave Friendship:39 deg | | |S-T Horizontal Friendship:79 deg | | |S-T Front Friendship:49 deg | | |Severity:- ABNORMAL ECG - [...] + + | [facility] | [address] | [place] [address] | [phone] | + + + + + CBC [...] | [facility] | | | Performed by [facility] [address] | | [facility] | | | [address] [place] | | MEDICAL CENTER | | | [address] | | LABORATORY | | | | | CERNER | + + + + + + + | Specimen | + + | Blood | + + + + + + + | Performing | Address | City/State/Zipcode | Phone Number | | Organization | | | | + + + + + | [facility] | [address] | [place] [address] | | | [facility] | | | | | LABORATORY CERNER [...] 51 (L)Comment: eGFR<60 | >=90 mL/min/1.73m2 | [facility] | | | consistent with impaired | | [facility] | | | kidney | | [facility] | | | function.Performed by | | LABORATORY | | | [facility] [address], | | [place] | | | [place] [address] | | | + + + + + + + | Specimen | + + | Blood | + + + + + + + | Performing | Address | City/State/Zipcode | Phone Number | | Organization | | | | + + + + + | [facility] | [address] | [place] [address] | | | [facility] | | | | | [place] | | | | + + + + + POC Glucose (06/12/2018 0239) + + + + + | Component | Value | Ref Range | Performed At | + + + + + | Glucose, POC | 107 (H)Comment: | 65 - 99 mg/dL | [facility] | | | Performed by [facility] [address] | | [facility] | | | [address] [place], [place] | | [facility] | | | [address] | | LABORATORY | | | | | CERNER | + + + + + + + | Specimen | + + | Blood | + + + + + + + | Performing | Address | City/State/Zipcode | Phone Number | | Organization | | | | + + + + + | [facility] | [address] | [place] [address] | | | [facility] | | | | | LABORATORY CERNER | | | | + + + + + POC Glucose (06/12/2018 0135) + + + +-------- ---------+ | Component | Value | Ref Range | Perform ed At | + + + +-------- ---------+ | Glucose, POC | 99Comment: Performed by | 65 - 99 mg/dL | [facility] | | | [facility] [address], | | [facility] | | | [place] [address] | | [facility] | | |Performed by [facility] [address], [place] [address] | | LABORAT [place] | | | | | JAM[place]NER | + + + +-------- ---------+ + + | Specimen | + + | Blood | + + + + + + + | Performing | Address | City/State/Zipcode | Phone Number | | Organization | | | | + + + + + | [facility] | [address] | [place] [address] | | | [facility] | | | | | LABORATORY [place] | | | | + + + + + POC Glucose (06/11/20188) + + + + + | Component | Value | Ref Range | Performed At | + + + + + | Glucose, POC | 105 (H)Comment: | 65 - 99 mg/dL | [facility] | | | Performed by [facility] [address] | | [facility] | | | [place] | | [facility] | | | [address] | | LABORATORY | | | | | CERNER | + + + + + + + | Specimen | + + | Blood | + + + + + + + | Performing | Address | City/State/Zipcode | Phone Number | | Organization | | | | + + + + + | [facility] | [address] | [place] [address] | | | [facility] | | | | | LABORATORY CERNER | | | | + + + + + POC Glucose (06/11/20189) + + + + + | Component | Value | Ref Range | Performed At | + + + + + | Glucose, POC | 113 (H)Comment: | 65 - 99 mg/dL | [facility] | | | Performed by [facility] [address] | | [facility] | | | [address], [place] | | [facility] | | | [address] | | LABORATORY | | | | | CERNER | + + + + + + + | Specimen | + + | Blood | + + + + + + + | Performing | Address | City/State/Zipcode | Phone Number | | Organization | | | | + + + + + | [facility] | [address] | [place] [address] | | | [facility] | | | | | LABORATORY CERNER | | | | + + + + + Potassium Whole Blood (06/11/20182300) + + + + + | Component | Value | Ref Range | Performed At | + + + + + | K | 5.4 (H)Comment: | 3.5 - 5.0 mmol/L | [facility] | | | Performed by [facility] [address] | | [facility] | | | [address] [place] | | MEDICAL CENTER | | | [address] | | LABORATORY | | | | | CERNER | + + + + + + + | Specimen | + + | Blood | + + + + + + + | Performing | Address | City/State/Zipcode | Phone Number | | Organization | | | | + + + + + | [facility] | [address] | [place] [address] | | | [facility] | [...] | [facility] | | | Performed by [facility] [address] | | [facility] | | | [address] [place] | | [facility] | | | [address] | | LABORATORY | | | | | CERNER | + + + + + + + | Specimen | + + | Blood | + + + + + + + | Performing | Address | City/State/Zipcode | Phone Number | | Organization | | | | + + + + + | [facility] | [address] | [place] [address] | | | [facility] | | | | | [...] [facility] | | | | | [facility] | | | | | LABORATORY | | | | | CERNER | + + + ----+ + | O2SAT COOX ARTERIAL | 95.9Comment: Performed | 92.0 - 99.0 % | [facility] | | | by [facility] [address], | | [facility] | | | [place] [address] | | [facility] | | |Performed by [facility] [address], [place] [address] | | LABORATORY | | | | | CERNER | + + + ----+ + + + | Specimen | + + | Blood - Artery | + + + + + + + | Performing | Address | City/State/Zipcode | Phone Number | | Organization | | | | + + + + + | [facility] | [address] | [place] [address] | | | [facility] | | | | | LABORATORY CERNER | | | | + + + + + POC Glucose (06/11/20186) + + + + + | Component | Value | Ref Range | Performed At | + + + + + | Glucose, POC | 116 (H)Comment: | 65 - 99 mg/dL | [facility] | | | Performed by [facility] [address] | | [facility] | | | [place], [place] | | MEDICAL CENTER | | | [address] | | LABORATORY | | | | | [place] | + + + + + + + | Specimen | + + | Blood | + + + + + + + | Performing | Address | City/State/Zipcode | Phone Number | | Organization | | | | + + + + + | [facility]CARLOS [facility] | [address] [place] [address]. | [place] [address] | | | [facility] | [...] | [facility] | | | Performed by [facility] [address] | | [facility] | | | [place] | | [facility] | | | [address] | | LABORATORY | | | | | CERNER | + + + + + + + | Specimen | + + | Blood | + + + + + + + | Performing | Address | City/State/Zipcode | Phone Number | | Organization | | | | + + + + + | [facility] | [address] | [place], [place] | | | [facility] | | | | | LABORATORY [place] | | | | + + + + + Potassium (06/11/20181957) + + + +-------- ---------+ | Component | Value | Ref Range | Perform ed At | + + + +-------- ---------+ | K | 3.9Comment: Performed | 3.5 - 5.0 mmol/L | [facility] | | | by [facility] [address], | | [facility] | | | [place], [place] | | [facility] | | |Performed by [facility] [address], [place] | | [place] | | | | | J[place] | + + + +-------- ---------+ + + | Specimen | + + | Blood | + + + + + + + | Performing | Address | City/State/Zipcode | Phone Number | | Organization | | | | + + + + + | [facility] | [address] | [place] [address] | | | [facility] | | | | | LABORATORY [place] | | | | + + + + + POC Glucose (06/11/20182) + + + + + | Component | Value | Ref Range | Performed At | + + + + + | Glucose, POC | 156 (H)Comment: | 65 - 99 mg/dL | [facility] | | | Performed by [facility] [address] | | [facility] | | | [place] | | [facility] | | | [address] | | LABORATORY | | | | | JAMINNER | + + + + + + + | Specimen | + + | Blood | + + + + + + + | Performing | Address | City/State/Zipcode | Phone Number | | Organization | | | | + + + + + | [facility] | [address] | [place] [address] | | | [facility] | | | | | LABORATORY CERNER | | | | + + + + + ECG 12 lead (06/11/2018 1659) + + + | Narrative | Performed At | + + + | HEART RATE:72 | [facility] | | bpmRR Interval:833 msAtrial Rate:72 msP-R Interval:176 msP | [facility] | | Duration:180 msP Horizontal Friendship:-10 degP Front Friendship:68 degQ Onset:512 | | | msQRSD Interval:110 msQT Interval:444 msQTcB:486 msQTcF:472 msQRS | | | Horizontal Friendship:112 degQRS Friendship:-63 degI-40 Horizontal Friendship:100 | | | degI-40 Front Friendship:-58 degT-40 Horizontal Friendship: degT-40 Front Friendship:160 | | | degT Horizontal Friendship:104 degT Wave Friendship:-11 degS-T Horizontal | | | Friendship:104 degS-T Front Friendship:32 degSeverity:- ABNORMAL ECG -INTERP:SINUS | | | RHYTHMINTERP:PROBABLE LEFT ATRIAL ABNORMALITYINTERP:NONSPECIFIC IVCD | | | WITH LADINTERP:INFERIOR INFARCT, AGE INDETERMINATEINTERP:LATERAL | | | INFARCT, OLDElectronically signed by: ELIZABETH CAMPBELL 06-12-2018 | | | 11:18:02 | | |QRS Horizontal Friendship:112 deg | | |QRS Friendship:-63 deg | | |I-40 Horizontal Friendship:100 deg | | |I-40 Front Friendship:-58 deg | | |T-40 Horizontal Friendship: deg | | |T-40 Front Friendship:160 deg | | |T Horizontal Friendship:104 deg | | |T Wave Friendship:-11 deg | | |S-T Horizontal Friendship:104 deg | | |S-T Front Friendship:32 deg | | |Severity:- ABNORMAL ECG - [...] + + | SARITHA REY | [address] | [place] [address] | [phone] | + + + + + PTT [...] | | | | | seconds.Performed by [facility] | | | | | [address], | | | | | [place] [address] | | | + + + + + + + | Specimen | + + | Blood | + + + + + + + | Performing | Address | City/State/Zipcode | Phone Number | | Organization | | | | + + + + + | AMIL[facility] CARDONA | [address] | [place] [address] | | | [facility] | | | | | [place] | | | | + + + + + James COPE (06/11/2018 1637) + + + + + | Component | Value | Ref Range | Performed At | + + + + + | Protime | 14.6 (H) | 12.0 - 14.2 sec | [facility] | | | | | [facility] | | | | | [facility] | | | | | LABORATORY | | | | | [facility] | + + + + + | INR | 1.2 (H)Comment: Usual | 0.9 - 1.1 | [facility] | | | oral anticoagulant | | [facility] | | | range: 2.0 to 3.0 High | | [facility] | | | level oral | | LABORATORY | | | anticoagulant range: 2.5 | | [facility] | | | to 3.5Performed by [facility] [facility] | | | | | [address] [place], | | | | | [place] [address] | | | + + + + + + + | Specimen | + + | Blood | + + + + + + + | Performing | Address | City/State/Zipcode | Phone Number | | Organization | | | | + + + + + | [facility] | [address] | [place] [address] | | | [facility] | | | | | LABORATORY CERNER | | | | + + + + + Comprehensive Metabolic Panel (06/11/2018 1637) + + + + + | Component | Value | Ref Range | Performed At | + + + + + | NA | 146 (H) | 135 - 145 mmol/L | [facility] | | | | | [facility] | | | | | [facility] [...] by | | LABORATORY | | | [facility] [address], | | [place] | | | [place] [address] | | | + + + + + + + | Specimen | + + | Blood | + + + + + + + | Performing | Address | City/State/Zipcode | Phone Number | | Organization | | | | + + + + + | [facility] | [address] | [place] [address] | | | [facility] | | | | | [place] [...] | [facility] | | | Performed by [facility] [address] | | [facility] | | | [address] [place] [place] | | MEDICAL CENTER | | | [address] | | LABORATORY | | | | | CERNER | + + + + + + + | Specimen | + + | Blood | + + + + + + + | Performing | Address | City/State/Zipcode | Phone Number | | Organization | | | | + + + + + | [facility] | [address] | [place] [address] | | | [facility] | | | | | LABORATORY CERNER | | | | + + + + + Lactic Acid, Arterial, Respiratory (06/11/2018 1636) + + + + + | Component | Value | Ref Range | Performed At | + + + + + | Lactate, Arterial | 1.0Comment: Performed | 0.5 - 1.6 mmol/L | [facility] | | | by [facility] [address], | | [facility] | | | [place] [address] | | [facility] | | |Performed by [facility] [address], [place] [address] | | LABORATORY | | | | | CERNER | + + + + + + + | Specimen | + + | Blood | + + + + + + + | Performing | Address | City/State/Zipcode | Phone Number | | Organization | | | | + + + + + | [facility] | [address] | [place] [address] | | | [facility] | [...] Performed | 4.75 - 5.30 mg/dL | [facility] | | Normalized | by [facility] [address], | | [facility] | | | [place] [address] | | [facility] | | |Performed by [facility] [address], [place] [address] | | LABORATORY | | | | | CERNER | + + + + + + + | Specimen | + + | Blood | + + + + + + + | Performing | Address | City/State/Zipcode | Phone Number | | Organization | | | | + + + + + | [facility] | [address] | [place] [address] | | | [facility] | | | | | LABORATORY CERNER | | | | + + + + + Glucose, Respiratory (06/11/2018 1636) + + + + + | Component | Value | Ref Range | Performed At | + + + + + | GLUCOSE | 122 (H)Comment: | 65 - 99 mg/dL | [facility] | | | Performed by [facility] [address] | | [facility] | | | [address], [place], [place] | | MEDICAL CENTER | | | [address] | | LABORATORY | | | | | CERNER | + + + + + + + | Specimen | + + | Blood | + + + + + + + | Performing | Address | City/State/Zipcode | Phone Number | | Organization | | | | + + + + + | [facility] | [address] | [place] [address] | | | [facility] | | | | | LABORATORY CERNER [...] + ----+ + | Comment | [id number] | | [facility] | | | | [...] % | [facility] | | | by [facility] [address], | | [facility] | | | [place] [address] | | MEDICAL CENTER | | |Performed by [facility] [address], [place] [address] | | LABORATORY | | | | | CERNER | + + + ----+ + + + | Specimen | + + | Blood - Artery | + + + + + + + | Performing | Address | City/State/Zipcode | Phone Number | | Organization | | | | + + + + + | [facility] | [address] | [place] [address] | | | [facility] | | | | | LABORATORY [place] [...] by: Janak | | | Parish [place] Date/Time: 06/11/2018 5:23 PM | | + [...] | [facility] | | | Performed by [facility] [address] | | [facility] | | | [address] [place], [place] | | [facility] | | | [address] | | LABORATORY | | | | | [place] | + + + + + + + | Specimen | + + | Blood | + + + + + + + | Performing | Address | City/State/Zipcode | Phone Number | | Organization | | | | + + + + + | [facility] | [address] | [place] [address] | | | [facility] | | | | | LABORATORY [place] [...] [facility] | | | | | [facility] | | | | | LABORATORY | | | | | CERNER | + + + ----+ + | NA | 142Comment: Performed | 135 - 145 mmol/ L | [facility] | | | by [facility] [address] [facility] [facility] [facility] [address], | | [facility] | | | [place] [address] | | [facility] | | |Performed by [facility] [address], [place] [address] | | LABORATORY | | | | | CERNER | + + + ----+ + + + | Specimen | + + | Blood | + + + + + + + | Performing | Address | City/State/Zipcode | Phone Number | | Organization | | | | + + + + + | [facility] | [address] | [place] [address] | | | [facility] | | | | | LABORATORY [place] [...] | assay has been evaluated | | [facility] | | | for screening [...] [facility] | | | | | [facility] | | | | | LABORATORY | [...] | | | | | seconds.Performed by [facility] | | | | | [address], | | | | | [place] [address] | | | + + + + + + + | Specimen | + + | Blood | + + + + + + + | Performing | Address | City/State/Zipcode | Phone Number | | Organization | | | | + + + + + | [facility] | [address] | [place] [address] | | | [facility] | | | | | [place] | | | | + + + + + Lactic Acid, Arterial, Surgery (06/11/2018 1450) + + + + + | Component | Value | Ref Range | Performed At | + + + + + | Lactate, Arterial | 2.0 (H)Comment: | 0.5 - 1.6 mmol/L | [facility] | | | Performed by [facility] [address] | | [facility] | | | [facility] [place] | | [facility] | | | [address] | | LABORATORY | | | | | [place] | + + + + + + + | Specimen | + + | Blood | + + + + + + + | Performing | Address | City/State/Zipcode | Phone Number | | Organization | | | | + + + + + | [facility] | [address] | [place] [address] | | | [facility] | | | | | LABORATORY [place] [...] [facility] | | | | | [facility] | | | | | LABORATORY | | | | | CERNER | + + + ----+ + | GLUCOSE | 108 (H) | 65 - 99 mg/dL | [facility] | | | | | [facility] | | | | | [facility] | | | | | LABORATORY | | | | | CERNER | + + + ----+ + | NA | 141Comment: Performed | 135 - 145 mmol/ L | [facility] | | | by [facility] [address], | | [facility] | | | [place] [address] | | [facility] | | |Performed by [facility] [address], [place] [address] | | LABORATORY | | | | | CERNER | + + + ----+ + + + | Specimen | + + | Blood | + + + + + + + | Performing | Address | City/State/Zipcode | Phone Number | | Organization | | | | + + + + + | [facility] | [address] | [place] [address] | | | [facility] | | | | | LABORATORY [place] | | | | + + + + + Lactic Acid, Arterial, Surgery (06/11/2018 1400) + + + + + | Component | Value | Ref Range | Performed At | + + + + + | Lactate, Arterial | 1.5Comment: Performed | 0.5 - 1.6 mmol/L | [facility] | | | by [place] [address] [address], | | [facility] | | | [place] [address] | | [facility] | | |Performed by [facility] [address], [place] [address] | | LABORATORY | | | | | CERNER | + + + + + + + | Specimen | + + | Blood | + + + + + + + | Performing | Address | City/State/Zipcode | Phone Number | | Organization | | | | + + + + + | [facility] | [address] | [place] [address] | | | [facility] | | | | | LABORATORY CERNER | | | | + + + + + Blood Gas , Arterial, Surgery (06/11/2018 1400) + + + + + | Component | Value | Ref Range | Performed At | + + + + + | pH, Arterial | 7.34 (L)Comment: | 7.37 - 7.47 | [facility] | | | Results Delivered to | | [facility] | | | OR[facility] | | [facility] | | |Results Delivered to OR23 | [...] | [facility] | | | Performed by [facility] [address] | | [facility] | | | [address] [place] | | MEDICAL CENTER | | | [address] | | LABORATORY | | | | | CERNER | + + + + + + + | Specimen | + + | Blood | + + + + + + + | Performing | Address | City/State/Zipcode | Phone Number | | Organization | | | | + + + + + | [facility] | [address] | [place] [address] | | | [facility] | | | | | LABORATORY CERNER | | | | + + + + + Lactic Acid, Arterial, Surgery (06/11/2018 1334) + + + + + | Component | Value | Ref Range | Performed At | + + + + + | Lactate, Arterial | 1.2Comment: Performed | 0.5 - 1.6 mmol/L | [facility] | | | by [facility] [address], | | [facility] | | | [place] | | MEDICAL CENTER | | |Performed by [address], [place] | | LABORATORY | | | | | CERNER | + + + + + + + | Specimen | + + | Blood | + + + + + + + | Performing | Address | City/State/Zipcode | Phone Number | | Organization | | | | + + + + + | [facility] | [address] | [place], [place] | | | [facility] [...] | [facility] | | | [facility] OR[facility] | | MEDICAL CENT ER | | |Results Delivered to [facility] | | LABORATORY | | | | [...] | [facility] | | | Performed by [facility] [address] | | [facility] | | | [address] [place] | | MEDICAL CENT ER | | | [address] | | LABORATORY | | | | | CERNER | + + + + ----+ + + | Specimen | + + | Blood | + + + + + + + | Performing | Address | City/State/Zipcode | Phone Number | | Organization | | | | + + + + + | [facility] | [address] | [place] [address] | | | [facility] | | | | | LABORATORY [place] | | | | + + + + + ECHO Transesophageal (CHIQUITA) (06/11/2018 1305) + -----+ + | Narrative | Performed At | + -----+ + | | [facility] | | Transesophageal Echocardiography Report (CHIQUITA) Demographics Patient | | | Name [facility] Room | | | Number Therese LACKEY | | | Patient Number [id number] Date of | | | Study 06/11/2018 Visit Number [id number] | | | Accession | | | [id number] Interpreting Sharad Richard | | | Number | | | Physician Date of 1955 Referring | | | Physician ELEANOR MARTIN Age 62 | | | year(s) Sales Engineer Sanjeev | | | Augustine | | | | | | | | | Sharad Richard MD | | | Gender Female 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 Visible portions of ascending aorta and arch normal. 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 Pulmonary artery | | | [id number]. Normal pericardium. No pericardial fluid. No pleural [...] Note | + + | Presley Dumont In - 06/11/2018 6388 [facility] Transesophageal Echocardiography Report | | (CHIQUITA) Demographics Patient Name JAYASHREE KENNEY Room Number 270 | | [place] Patient Number [id number] Date of Study 06/11/2018 Visit | | Number [id number] Interpreting Sharad | | MD Jose Manuel Number Physician Date of 1955 | | Referring Physician ELEANOR MARTIN Age 62 year(s) | | Sales Engineer Sanjeev Bradshaw, | | MD Sharad Richard [...] function. Trace TR.7. Pulmonic valve normal Trace NJ.8. Visible portions | | of ascending aorta and arch normal. 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 Pulmonary artery [id number]. Normal pericardium. No pericardial fluid. No pleural [...] mmol/L | [facility] | | | by [facility] [address], | | [facility] | | | [place] [address] | | MEDICAL CENTER | | |Performed by [facility] [address], [place] [address] | | LABORATORY | | | | | CERNER | + + + + + + + | Specimen | + + | Blood | + + + + + + + | Performing | Address | City/State/Zipcode | Phone Number | | Organization | | | | + + + + + | [facility] | [address] | [place] [address] | | | [facility] | | | | | LABORATORY CERNER [...] [facility] | | Normalized | Performed by [facility] [address] | | [facility] | | | [address], [place] | | [facility] | | | [address] | | LABORATORY | | | | | [place] | + + + + + + + | Specimen | + + | Blood | + + + + + + + | Performing | Address | City/State/Zipcode | Phone Number | | Organization | | | | + + + + + | [facility] | [address] | [place] [address] | | | [facility] | | | | | LABORATORY [place] | | | | + + + + + Lactic Acid, Arterial, Surgery (06/11/2018 1035) + + + + + | Component | Value | Ref Range | Performed At | + + + + + | Lactate, Arterial | 0.9Comment: Performed | 0.5 - 1.6 mmol/L | [facility] | | | by [facility] [address], | | [facility] | | | [place] [address] | | [facility] | | |Performed by [facility] [address], [place] [address] | | LABORATORY | | | | | CERNER | + + + + + + + | Specimen | + + | Blood | + + + + + + + | Performing | Address | City/State/Zipcode | Phone Number | | Organization | | | | + + + + + | [facility] | [address] | [place] [address] | | | [facility] | | | | | LABORATORY CERNER [...] | [facility] | | | Performed by [facility] [address] | | [facility] | | | [address], [place], [place] | | MEDICAL CENTER | | | [address] | | LABORATORY | | | | | CERNER | + + + + + + + | Specimen | + + | Blood | + + + + + + + | Performing | Address | City/State/Zipcode | Phone Number | | Organization | | | | + + + + + | [facility] | [address] | [place] [address] | | | [facility] | | | | | LABORATORY [place] | | | | + + + + + Type and Screen (06/11/2018512) + + + + + | Component | Value | Ref Range | Performed At | + + + + + | Antibody Screen | Positive | | [facility] | | | | | [place] | | | | | [facility] | | | | | [facility] | + + + + + | ABO | O | | [facility] | | | | | [place] | | | | | [facility] | | | | | [facility] | + + + + + | Rh Type | Negative | | [facility] | | | | | [place] | | | | | [facility] | | | | | [facility] | + + + + + + + | Specimen | + + | Blood | + + + + + | Narrative | Performed At | + + + | Specimen Expiration Date: [id number] | [facility] | | | [place] | | | [facility] | | | [facility] | + + + + + + + + | Performing | Address | City/State/Zipcode | Phone Number | | Organization | | | | + + + + + | [facility] | [address] | [place] [address] | [phone] | | [place] | | | | | [facility] | | | | | [facility]ENTER | | | | + + + + + POC Glucose (06/11/20182) + + + + + | Component | Value | Ref Range | Performed At | + + + + + | Glucose, POC | 105 (H)Comment: | 65 - 99 mg/dL | [facility] | | | Performed by [facility] [address] | | [facility] | | | [address] [place], [place] | | [facility] | | | [address] | | LABORATORY | | | | | [place] | + + + + + + + | Specimen | + + | Blood | + + + + + + + | Performing | Address | City/State/Zipcode | Phone Number | | Organization | | | | + + + + + | [facility] | [address] | [place] [address] | | | [facility] | [...] | CERNER | | | 3.5Performed by [facility] [address] | | [address], [place] | | | | | [address] | | | + + + + + + + | Specimen | + + | Blood | + + + + + + + | Performing | Address | City/State/Zipcode | Phone Number | | Organization | | | | + + + + + | [facility] | [address] | [place] [address] | | | [facility] | | | | | [...] | [facility] | | | Performed by [facility] [address] | | [facility] | | | [place] | | MEDICAL CENTER | | | [address] | | LABORATORY | | | | | [place] | + + + + + + + | Specimen | + + | Blood | + + + + + + + | Performing | Address | City/State/Zipcode | Phone Number | | Organization | | | | + + + + + | [facility] | [address] | [place] [address] | | | [facility] | | | | | LABORATORY [place] | | | | + + + + + Basic Metabolic Panel (06/11/2018 0312) + + + + + [...] 70 (L)Comment: eGFR<60 | >=90 mL/min/1.73m2 | [facility] | | | consistent with impaired | | [facility] | | | kidney | | MEDICAL CENTER | | | function.Performed by | | LABORATORY | | | [facility] [address], | | [place] | | | [place] [address] | | | + + + + + + + | Specimen | + + | Blood | + + + + + + + | Performing | Address | City/State/Zipcode | Phone Number | | Organization | | | | + + + + + | [facility] | [address] | [place] [address] | | | [facility] | | | | | LABORATORY [place] [...] | | | | | seconds.Performed by [facility] | | | | | [address], | | | | | [place] [address] | | | + + + + + + + | Specimen | + + | Blood | + + + + + + + | Performing | Address | City/State/Zipcode | Phone Number | | Organization | | | | + + + + + | [facility] | [address] | [place] [address] | | | [facility] | | | | | [place] | | | | + + + + + MRSA NAAT (06/11/20189) + + + +--------- --------+ | Component | Value | Ref Range | Performe d At | + + + +--------- --------+ | MRSA DNA | Negative | Negative | [facility] | | | | | [facility] | | | | | MEDICAL CENTER | | | | | [place] [facility] | | | | | [place] | + + + +--------- --------+ | Specimen Source | NasalComment: Performed | | [facility] | | | by [facility] [address], | | [facility] | | | [place], [place] | | [facility] | | |Performed by [facility] [address], [place] | | LABORATO RY | | [...] [facility] | [address] | [place], [place] | | | [facility] | | | | | LABORATORY CERNER [...] + + + + + | Specific [place] | 1.010 | 1.001 - 1.030 | [...] [facility] | | | | | [facility] | | | | | LABORATORY | | | | | [place] | + + + + + | URINE SOURCE | Clean catchComment: | | [facility] | | | Performed by [facility] [address] | | [facility] | | | [address] [place] [place] | | [facility] | | | [address] | | LABORATORY | | | | [...] + + | [facility] | [address] | [place] [address] | | | [facility] | | | | | LABORATORY CERNER | | | | + + + + + POC Glucose (06/10/20182253) + + + + + | Component | Value | Ref Range | Performed At | + + + + + | Glucose, POC | 129 (H)Comment: | 65 - 99 mg/dL | [facility] | | | Performed by [facility] [address] | | [facility] | | | [address], [place] | | [facility] | | | [address] | | LABORATORY | | | | | CERNER | + + + + + + + | Specimen | + + | Blood | + + + + + + + | Performing | Address | City/State/Zipcode | Phone Number | | Organization | | | | + + + + + | [facility] | [address] | [place] [address] | | | [facility] | | | | | [place] [...] | | | | | seconds.Performed by [facility] | | | | | [address], | | | | | [place] [address] | | | + + + + + + + | Specimen | + + | Blood | + + + + + + + | Performing | Address | City/State/Zipcode | Phone Number | | Organization | | | | + + + + + | [facility] | [address] | [place] [address] | | | [facility] | | | | | LABORATORY CERNER [...] HEART | | | kidney | | [facility] | | | function.Performed by | | LABORATORY | | | [facility] [address], | | [place] | | | [place] [address] | | | + + + + + + + | Specimen | + + | Blood | + + + + + + + | Performing | Address | City/State/Zipcode | Phone Number | | Organization | | | | + + + + + | [facility] | [address] | [place] [address] | | | [facility] | [...] | CERNER | | | 3.5Performed by [facility] [address] | | | | | [address] [place] | | | | | [address] | | | + + + + + + + | Specimen | + + | Blood | + + + + + + + | Performing | Address | City/State/Zipcode | Phone Number | | Organization | | | | + + + + + | [facility] | [address] | [place] [address] | | | [facility] | | | | | [place] | | | | + + + + + POC Glucose (06/10/2018 1623) + + + + + | Component | Value | Ref Range | Performed At | + + + + + | Glucose, POC | 113 (H)Comment: | 65 - 99 mg/dL | [facility] | | | Performed by [facility] [address] | | [facility] | | | [place] | | [facility] | | | [address] | | LABORATORY | | | | | CERNER | + + + + + + + | Specimen | + + | Blood | + + + + + + + | Performing | Address | City/State/Zipcode | Phone Number | | Organization | | | | + + + + + | [facility] | [address] | [place] [address] | | | [facility] | [...] [facility] | | | | | [facility] | | | | | LABORATORY | | | | | CERNER | + + + + + | Hepatitis C Ab | >11.0 (H)Comment: | 0.0 - 0.9 | [facility] | | | | | [facility] | | | | | [facility] | | | [place] | | LABORATORY [...] Amplification test | | | | | ([id number]).Performed At: | | | | | [facility] [place] [address] | | | | | [facility] [address] | | | | | [place], [place] | | | | | [phone] Daniel | | | | | Riya MOJICA Ph:[phone] | | | + + + + + + + | Specimen | + + | Blood | + + + + + + + | Performing | Address | City/State/Zipcode | Phone Number | | Organization | | | | + + + + + | [facility] | [address] | [place] [address] | | | [facility] | | | | | LABORATORY ALTAGRACIA [...] | | | | | seconds.Performed by [facility] | | | | | [address], | | | | | [place] [address] | | | + + + + + + + | Specimen | + + | Blood | + + + + + + + | Performing | Address | City/State/Zipcode | Phone Number | | Organization | | | | + + + + + | [facility] | [address] | [place] [address] | | | [facility] | | | | | [place] | | | | + + + + + ECG 12 lead (06/10/2018 1210) + + + | Narrative | Performed At | + + + | HEART RATE:71 | [facility] | | [id number] Interval:845 msAtrial Rate:71 msP-R Interval:148 msP | TRAC[facility]ASTER | | Duration:152 msP Horizontal Friendship:32 degP Front Friendship:62 degQ Onset:512 | | | msQRSD Interval:110 msQT Interval:416 msQTcB:453 msQTcF:440 msQRS | | | Horizontal Friendship:199 degQRS Friendship:-83 degI-40 Horizontal Friendship:77 degI-40 | | | Front Friendship:-74 degT-40 Horizontal Friendship:242 degT-40 Front Friendship:216 | | | degT Horizontal Friendship:84 degT Wave Friendship:69 degS-T Horizontal Friendship:97 | | | degS-T Front Friendship:107 degSeverity:- ABNORMAL ECG -INTERP:SINUS | | | RHYTHMINTERP:NONSPECIFIC IVCD WITH LADINTERP:INFERIOR INFARCT, | | | OLDElectronically signed by: ELIZABETH CAMPBELL 06-12-2018 11:24:19 | | |QTcB:453 ms | | |QTcF:440 ms | | |QRS Horizontal Friendship:199 deg | | |QRS Friendship:-83 deg | | |I-40 Horizontal Friendship:77 deg | | |I-40 Front Friendship:-74 deg | | |T-40 Horizontal Friendship:242 deg | | |T-40 Front Friendship:216 deg | | |T Horizontal Friendship:84 deg | | |T Wave Friendship:69 deg | | |S-T Horizontal Friendship:97 deg | | |S-T Front Friendship:107 deg | | |Severity:- ABNORMAL ECG - | | |INTERP:SINUS RHYTHM | | |INTERP:NONSPECIFIC IVCD WITH LAD | | |INTERP:INFERIOR INFARCT, OLD | | |Electronically signed by: ELIZABETH CAMPBELL 06-12-2018 11:24:19 | | + + + + + + + + | Performing | Address | City/State/[facility] | Phone Number | | Organization | | | | + + + + + | SARITHA REY | [address] | [place] [address] | [phone] | + + + + + Pulmonary [...] | | | + + + PTT (06/10/2018654) + + + + + | [...] | | | | | seconds.Performed by [facility] | | | | | [address], | | | | | [place] [address] | | | + + + + + + + | Specimen | + + | Blood | + + + + + + + | Performing | Address | City/State/Zipcode | Phone Number | | Organization | | | | + + + + + | AMILCAR CARDONA | [address] | [place] [address] | | | [facility] | | | | | LABORATORY JAMINNER | | | | + + + + + Hepatitis Panel, Chronic (06/10/201855) + + + + + | Component | Value | Ref Range | Performed At | + + + + + | Hepatitis B Surface | Negative | Negative | [facility] | | Ag | | | [facility] | | | | | [facility] | | | | | LABORATORY | | | | | CERNER | + + + + + | Hepatitis B Core Ab, | Positive (A) | Negative | [facility] | | Total | | | [facility] | | | | | [facility] | | | | | LABORATORY | | | | | CERNER | + + + + + | Hepatitis C Ab | >11.0 (H)Comment: | 0.0 - 0.9 | [facility] | | | | | [facility] | | | | | [facility] | | | Nega | [...] Amplification test | | | | | ([id number]).Performed At: | | | | | [facility] | | | | | [address] | | | | | [place], [place] | | | | | [phone] Daniel | | | | | L Ph:[phone] | | | + + + + + | HEP A TOTAL AB | Positive (A) | Negative | [facility] | | | | | [facility] | | | | | [facility] | | | | | LABORATORY | | | | | CERNER | + + + + + | Hepatitis B Surface | ReactiveComment: | | [facility] | | Antibody Qual | | | [facility] | | | Non Reactive: | | [facility] | | | Inconsistent with | [...] + + | AMILCAR CARDONA | [address] | [place] [address] | | | [facility] | | | | | LABORATORY [place] | | | | + + + + + Hemoglobin A1C (06/10/2018654) + + + + + | Component | Value | Ref Range | Performed At | + + + + + | Hemoglobin A1c | 5.5Comment: The ADA | 4.3 - 6.1 % | [facility] | | | recommends A1C values of | | [facility] | | | less than 7% as the | | [facility] | | | goal for diabetic | | LABORATORY | | | therapy. | | CERNER | + + + + + | Estimated Average | 111Comment: The ADA | 65 - 154 mg/dL | [place] | | Glucose | considers an Estimated [...] | | | | | formula.Performed by [facility] | | | | | [address], | | | | | [place] [address] | | | + + + + + + + | Specimen | + + | Blood | + + + + + + + | Performing | Address | City/State/Zipcode | Phone Number | | Organization | | | | + + + + + | AMILCAR CARDONA | [address] | [place] [address] | | | [facility] | | | | | LABORATORY CERNER | | | | + + + + + ABO Rh (06/10/201849) + + + + + | Component | Value | Ref Range | Performed At | + + + + + | ABO | O | | [facility] | | | | | [place] | | | | | [facility] | | | [facility] | + + + + + | Rh Type | Negative | | [facility] | | | | | [place] | | | | | [facility] | | | | [facility] | + + + + + + + + | Narrative | Performed At | + + + | Specimen Expiration Date: [id number] | [facility] | | | [place] | | | [facility] | + + + + + + + + | Performing | Address | City/State/Zipcode | Phone Number | | Organization | | | | + + + + + | [facility] | [address] | [place] [address] | [phone] | | [place] | | | | | [facility] | | | | [facility] | | | | + + + + + Antibody Screen (06/10/2018 0649) + + + + + | Component | Value | Ref Range | Performed At | + + + + + | Antibody Screen | Positive | | [facility] | | | | | [place] | | | | | [facility] | | | | [facility] | + + + + + + + + | Narrative | Performed At | + + + | Specimen Expiration Date: [id number] | [facility] | | | [place] | | | [facility] | + + + + + + + + | Performing | Address | City/State/Zipcode | Phone Number | | Organization | | | | + + + + + | [facility] | [address] | [place] [address] | [phone] | | [facility] | | | | | [facility] | | | | [facility] | | | | + + + + + Antibody identification (06/10/20186) + + + + + | Component | Value | Ref Range | Performed At | + + + + + | Antibody ID | Anti-Jka | | [facility] | | | | | [place] | | | | | [facility] | | | | [facility] | + + + + + + + + | Narrative | Performed At | + + + | Specimen Expiration Date: [id number] | [facility] | | | [place] | | | [facility] | + + + + + + + + | Performing | Address | City/State/Zipcode | Phone Number | | Organization | | | | + + + + + | [facility] | [address] | [place] [address] | [phone] | | [place] | | | | | [facility] | | | | [facility] | | | | + + + + + Type and Screen (06/10/201845) + + + + + | Component | Value | Ref Range | Performed At | + + + + + | ABO | O | | [facility] | | | | | [place] | | | | | [facility] | [facility] | [facility] | + + + + + | Rh Type | Negative | | [facility] | | | | | [place] | | | | | [facility] | | | | [facility] | + + + + + | Antibody Screen | Positive | | [facility] | | | | | [place] | | | | | [facility] | | | | [facility] | + + + + + + + | Specimen | + + | Blood | + + + + + | Narrative | Performed At | + + + | Specimen Expiration Date: [id number] | [facility] | | | [place] | | | [facility] | + + + + + + + + | Performing | Address | City/State/Zipcode | Phone Number | | Organization | | | | + + + + + | [facility] | [address] | [place] [address] | [phone] | | [place] | | | | | [facility] | | | | | [facility] | | | | + + + + + PTT (06/10/201845) + + + + + | [...] | | | | | seconds.Performed by [facility] | | | | | [address], | | | | | [place] [address] | | | + + + + + + + | Specimen | + + | Blood | + + + + + + + | Performing | Address | City/State/Zipcode | Phone Number | | Organization | | | | + + + + + | AMILCAR CARDONA | [address] | [place] [address] | | | [facility] | | | | | [facility] [place] [...] | proximal 40% LAD, 95% ostial septal wool hat forming machine tender, 70% mid and distal LAD, 100% mid [...] | | | LAD, 95% ostial septal wool hat forming machine tender, 70% mid and distal LAD, 100% mid [...] + + | Performing | Address | City/State/[facility] | Phone Number | | Organization [...] lateral castillo from | | | prior [place]. 4. Mild destinee infarct ischemia. LARGE SEVERE inferior and | | | Lateral [place]. Cath will be recommended to see best options. | | | | | |Cath will be recommended to see best options. | | | | | | | | + + + + +---------+ + + | Performing | Address | City/State/[facility] | Phone Number | | Organization [...] | TRACEMASTER | | Duration:176 msP Horizontal Friendship:19 degP Front Friendship:70 degQ Onset:512 | | | msQRSD Interval:110 msQT Interval:444 msQTcB:480 msQTcF:467 msQRS | | | Horizontal Friendship:157 degQRS Friendship:-77 degI-40 Horizontal Friendship:75 degI-40 | | | Front Friendship:-59 degT-40 Horizontal Friendship:240 degT-40 Front Friendship:267 | | | degT Horizontal Friendship:91 degT Wave Friendship:68 degS-T Horizontal Friendship:98 | | | degS-T Front Friendship:103 degSeverity:- ABNORMAL ECG -INTERP:SINUS | | | RHYTHMINTERP:NONSPECIFIC IVCD WITH LADINTERP:INFERIOR INFARCT, | | | OLDElectronically signed by: ELIZABETH CAMPBELL 06-12-2018 11:25:24 | | |QTcB:480 ms | | |QTcF:467 ms | | |QRS Horizontal Friendship:157 deg | | |QRS Friendship:-77 deg | | |I-40 Horizontal Friendship:75 deg | | |I-40 Front Friendship:-59 deg | | |T-40 Horizontal Friendship:240 deg | | |T-40 Front Friendship:267 deg | | |T Horizontal Friendship:91 deg | | |T Wave Friendship:68 deg | | |S-T Horizontal Friendship:98 deg | | |S-T Front Friendship:103 deg | | |Severity:- ABNORMAL ECG - [...] + + + | SARITHA REY | [address] [place] [address]. | [place] [address] | [phone] | + + + + + Magnesium (06/09/2018 0307) + + + +--------- --------+ | Component | Value | Ref Range | Performe d At | + + + +--------- --------+ | Magnesium | 2.1Comment: Performed | 1.7 - 2.4 mg/dL | [facility] | | | by [facility] [address], | | [facility] | | | [place] [address] | | [facility] | | |Performed by [facility] [address], [place] [address] | | LABORATO RY | | | | | CERNER | + + + +--------- --------+ + + | Specimen | + + | Blood | + + + + + + + | Performing | Address | City/State/Zipcode | Phone Number | | Organization | | | | + + + + + | [facility] | [address] | [place] [address] | | | [facility] | | | | | [...] L | [facility] | | | by [facility] [address], | | [facility] | | | [place] [address] | | [facility] | | |Performed by [facility] [address], [place] | | LABORATORY | | | | | CERNER | + + + --+ + + + | Specimen | + + | Blood | + + + + + + + | Performing | Address | City/State/Zipcode | Phone Number | | Organization | | | | + + + + + | [facility] | [address] | [place], [place] | | | [facility] [...] by | | LABORATORY | | | [facility] [address], | | [place] | | | [place] [address] | | | + + + + + + + | Specimen | + + | Blood | + + + + + + + | Performing | Address | City/State/Zipcode | Phone Number | | Organization | | | | + + + + + | YARELISCARLOS CARDONA | [address] | [place] [address] | | | [facility] | | | | | [facility] [...] read back by LEANN Sandhu | | MEDICAL CENTER | | | at 06/08/2018 10:03:33 | [...] | | | | | TroponinPerformed by [facility] | | | | | [address], | | | | | [place] [address] | | | + + + + + + + | Specimen | + + | Blood | + + + + + + + | Performing | Address | City/State/Zipcode | Phone Number | | Organization | | | | + + + + + | AMILCAR CARDONA | [address] | [place] [address] | | | [facility] | | | | | LABORATORY CERNER | | | | + + + + + ECG 12 lead (06/08/2018 0430) + + + | Narrative | Performed At | + + + | HEART RATE:94 | [facility] | | bpmRR Interval:638 msAtrial Rate:95 msP-R Interval:148 msP | [facility] | | Duration:200 msP Horizontal Friendship:19 degP Front Friendship:58 degQ Onset:512 | | | msQRSD Interval:110 msQT Interval:404 msQTcB:506 msQTcF:469 msQRS | | | Horizontal Friendship:184 degQRS Friendship:265 degI-40 Horizontal Friendship:78 degI-40 | | | Front Friendship:269 degT-40 Horizontal Friendship:240 degT-40 Front Friendship:259 | | | degT Horizontal Friendship:77 degT Wave Friendship:63 degS-T Horizontal Friendship:83 | | | degS-T Front Friendship:99 degSeverity:- ABNORMAL ECG -INTERP:SINUS | | | RHYTHMINTERP:NONSPECIFIC IVCD WITH LADINTERP:INFERIOR INFARCT, | | | OLDElectronically signed by: ELIZABETH CAMPBELL 06-12-2018 11:24:43 | | |QTcB:506 ms | | |QTcF:469 ms | | |QRS Horizontal Friendship:184 deg | | |QRS Friendship:265 deg | | |I-40 Horizontal Friendship:78 deg | | |I-40 Front Friendship:269 deg | | |T-40 Horizontal Friendship:240 deg | | |T-40 Front Friendship:259 deg | | |T Horizontal Friendship:77 deg | | |T Wave Friendship:63 deg | | |S-T Horizontal Friendship:83 deg | | |S-T Front Friendship:99 deg | | |Severity:- ABNORMAL ECG - [...] + + + + + | [facility] | [address] | [place] [address] | [phone] | + + + + + Troponin [...] to and read back by | | [facility] | | | luis soto at | [...] TroponinPerformed by | | | | | [facility] [address], | | | | | [place] [address] | | | + + + + + + + | Specimen | + + | Blood | + + + + + + + | Performing | Address | City/State/Zipcode | Phone Number | | Organization | | | | + + + + + | AMILCAR CARDONA | [address] | [place] [address] | | | [facility] | | | | | [place] [place] | | | | + + + + + Magnesium (06/08/2018315) + + + +--------- --------+ | Component | Value | Ref Range | Performe d At | + + + +--------- --------+ | Magnesium | 1.8Comment: Performed | 1.7 - 2.4 mg/dL | [facility] | | | by [facility] [address], | | [facility] | | | [place] [address] | | [facility] | | |Performed by [facility] [address], [place] [address] | | LABORATO RY | | | | | CERNER | + + + +--------- --------+ + + | Specimen | + + | Blood | + + + + + + + | Performing | Address | City/State/Zipcode | Phone Number | | Organization | | | | + + + + + | [facility] | [address] | [place] [address] | | | [facility] | | | | | LABORATORY CERNER | | | | + + + + + Renal Function Panel (06/08/2018315) + + + + + | Component | Value | Ref Range | Performed At | + + + + + | NA | 137 | 135 - 145 mmol/L | [facility] | | | | | [facility] | | | | | [facility] | | | | | LABORATORY | | | | | CERNER | + + + + + | K | 3.6 | 3.5 - 5.0 mmol/L | [facility] | | | | | [facility] [...] by | | LABORATORY | | | [facility] [address], | | [place] | | | [place] [address] | | | + + + + + + + | Specimen | + + | Blood | + + + + + + + | Performing | Address | City/State/Zipcode | Phone Number | | Organization | | | | + + + + + | AMILCAR CARDONA | [address] | [place] [address] | | | [facility] | | | | | LABORATORY CERNER [...] | and read back by 6S | [facility] | | | MATTI Herrera at [address] | | LABORATORY | | | 0.070 [...] | | | | | TroponinPerformed by [facility] | | | | | [address], | | | | | [place] [address] | | | + + + + + + + | Specimen | + + | Blood | + + + + + + + | Performing | Address | City/State/Zipcode | Phone Number | | Organization | | | | + + + + + | [facility] | [address] | [place] [address] | | | [facility] | | | | | LABORATORY CERNER [...] and read back by 6S | | [facility] | | | HECTOR Mcclain at 1710 [...] TroponinPerformed by | | | | | [facility] [address], | | | | | [place] [address] | | | + + + + + + + | Specimen | + + | Blood | + + + + + + + | Performing | Address | City/State/Zipcode | Phone Number | | Organization | | | | + + + + + | AMILCAR CARDONA | [address] | [place] [address] | | | [facility] | | | | | LABORATORY [place] [...] | [facility] | | | Performed by [facility] [address] | | [facility] | | | [address] [place] | | MEDICAL CENTER | | | [address] | | LABORATORY | | | | | CERNER | + + + + + + + | Specimen | + + | Blood | + + + + + + + | Performing | Address | City/State/Zipcode | Phone Number | | Organization | | | | + + + + + | YARELISDEMIKarly BRENDAN | [address] | [place] [address] | | | [facility] | | | | | [facility] [...] [facility] | | | | | [facility] | | | | | LABORATORY | | | | | CERNER | + + + + + | U Tox Comment | See CommentComment: | | [facility] | | | This entire battery is | | [facility] | | | for screening purposes | | [facility] | | | only. Results are not [...] | | | | | battery.Performed by [facility] | | | | | [address], | | | | | [place] [address] | | | + + + + + + + | Specimen | + + | Urine | + + + + + + + | Performing | Address | City/State/Zipcode | Phone Number | | Organization | | | | + + + + + | [facility] | [address] | [place] [address] | | | [facility] | | | | | LABORATORY CERNER [...] | and read back by | | MEDICAL CENTER | | | TAYA Serrano at | [...] | | | | | [place].Performed by [facility] [address] | | | | | [address] [place] | | | | | [address] | | | + + + + + + + | Specimen | + + | Blood | + + + + + + + | Performing | Address | City/State/[facility] | Phone Number | | Organization | | | | + + + + + | [facility] | [address] | [place] | | | [facility] | | | | | LABORATORY CERNER | | | | + + + + + Myoglobin (06/07/2018909) + + + +----- + | Component | Value | Ref Range | Perf ormed At | + + + +----- + | MYOGLOBIN, SERUM | 69Comment: Performed by | 0 - 69 ng/mL | [facility] | | | [facility] [address], | | [facility] | | | [place] | | [facility] | | |Performed by [facility] [address], [place] | | LABO RATORY | | | | | CERN ER | + + + +----- + + + | Specimen | + + | Blood | + + + + + + + | Performing | Address | City/State/Zipcode | Phone Number | | Organization | | | | + + + + + | AMILCAR CARDONA | [address] | [place] [address] | | | [facility] | | | | | [place] | | | | + + + + + Lipase (06/07/201810) + + + + ----+ | Component | Value | Ref Range | Performed At | + + + + ----+ | Lipase | 32Comment: Performed by | 11 - 82 U/L | [facility] | | | [facility] [address], | | [facility] | | | [place] [address] | | MEDICAL CENT ER | | |Performed by [facility] [address], [place] [address] | | LABORATORY | | | | | CERNER | + + + + ----+ + + | Specimen | + + | Blood | + + + + + + + | Performing | Address | City/State/Zipcode | Phone Number | | Organization | | | | + + + + + | [facility] | [address] | [place] [address] | | | [facility] | | | | | LABORATORY CERNER | | | | + + + + + Comprehensive Metabolic Panel (06/07/201810) + + + + + | Component | Value | Ref Range | Performed At | + + + + + | NA | 140 | 135 - 145 mmol/L | [facility] | | | | | [...] by | | LABORATORY | | | [facility] [address], | | [place] | | | [place] [address] | | | + + + + + + + | Specimen | + + | Blood | + + + + + + + | Performing | Address | City/State/Zipcode | Phone Number | | Organization | | | | + + + + + | AM[facility] | [address] | [place] [address] | | | [facility] | | | | | [place] | | | | + + + + + CBC with Differential (06/07/2018909) + + + --+ + | Component [...] L | [facility] | | | by [facility] [address], | | [facility] | | | [place] [address] | | MEDICAL CENTER | | |Performed by [facility] [address], [place] [address] | | LABORATORY | | | | | CERNER | + + + --+ + + + | Specimen | + + | Blood | + + + + + + + | Performing | Address | City/State/Zipcode | Phone Number | | Organization | | | | + + + + + | [facility]ISDEMIKarly [facility] | [address] | [place] [address] | | | [facility] | | | | | LABORATORY [place] | | | | + + + + + Extra Hold Tube(s) (06/07/2018909) + + + + ---+ | Component | Value | Ref Range | Performed At | + + + + ---+ | Extra Tube | DrawnComment: Performed | | [facility] | | | by [facility] [address], | | [facility] | | | [place] [address] | | MEDICAL CENTE R | | |Performed by [facility] [address], [place] [address] | | LABORATORY | | | | | [place] | + + + + ---+ + + | Specimen | + + | Blood | + + + + + + + | Performing | Address | City/State/Zipcode | Phone Number | | Organization | | | | + + + + + | [facility] | [address] | [place] [address] | | | [facility] | | | | | LABORATORY CERNER | | | | + + + + + CK Total (06/07/2018 0903) + + + + -----+ | Component | Value | Ref Range | Performed A t | + + + + -----+ | CK TOTAL | 84Comment: Performed by | 30 - 240 U/L | [facility] | | | [facility] [address], | | [facility] | | | [place] [address] | | [address] | | |Performed by [facility] [address], [place] [address] | | LABORATORY | | | | | CERNER | + + + + -----+ + + | Specimen | + + | Blood | + + + + + + + | Performing | Address | City/State/Zipcode | Phone Number | | Organization | | | | + + + + + | AMIL[facility] CARD[facility] | [address] | [place] [address] | | | [facility] | | | | | LABORATORY CERNER [...] + + + + + | Specific [place] | 1.020 | 1.001 - 1.030 | [...] [facility] | | | | | [facility] | | | | | LABORATORY | | | | | CERNER | + + + + + | MUCUS UA | None PresentComment: | | [facility] | | | Less than 2 mL | | [facility] | | | submitted. [facility] | | [facility] | | | c done on [place] [...] | [facility] | | | Performed by [facility] [address] | | [facility] | | | [address] [place] | | [facility] | | | [id number] | | LABORATORY | | | | [...] + + | AMILCAR CARDONA | [address] | [place] [address] | | | [facility] | | | | | LABORATORY ALTAGRACIA [...] | | | | First dose on [facility] 06/11/18 at 2100 | | PDT | [...] PDT | | | | | Starting [facility] 06/11/18 at 1635, | | | | [...] + +-------+ +--------+---+---+ | fentaNYL (PF) injection ONCE | Given | 06/09/2018 | 50 mcg | | | | PRN, Starting 06/09/18 at 1247, | | 12:31 | | | | | Intra-op | | PDT | | | | + +-------+ +--------+---+---+ +-------+ +--------+---+---+ | Given | 06/09/2018 | 50 mcg | | | | | 12:47 | | | | | | PDT [...] | heparin 1,000 units/mL | Given | 06/09/2018 | 5,000 | | | | injection ONCE PRN, Starting Tue | | 12:47 | Units | | | | 06/09/18 at 1247, Intra-op | | PDT | | | | + +-------+ +--------+---+---+ + +---+ | | | [...] | | +---+---+ + +-------+ +---------+---+---+ | iohexol (OMNIPAQUE 350) 350 | Given | 06/09/2018 | 120 mLs | | | | mg/mL injection ONCE PRN, | | 13:05 | | | | | Starting 06/09/18 at 1305, | | PDT | | | | | Intra-op | | | | | | + +-------+ +---------+---+---+ +---+---+ | | | +---+---+ + +-------+ +-------+---+---+ | lidocaine 1% injection ONCE | Given | 06/09/2018 | 2 mLs | | | | PRN, Starting 06/09/18 at 1243, | | 12:43 | | | | | Intra-op | | PDT | [...] | | +---+---+ + +-------+ +------+---+---+ | midazolam (VERSED) 1 mg/mL | Given | 06/09/2018 | 1 mg | | | | injection ONCE PRN, Starting Tue | | 12:47 | | | | | 06/09/18 at 1232, Intra-op | | PDT | | | | + +-------+ +------+---+---+ +-------+ +------+---+---+ | Given | 06/09/2018 | 1 mg | | | | | 12:51 | | | | | | PDT | | | | +-------+ +------+---+---+ | Given | 06/09/2018 | 1 mg | | | | | 13:01 | | | | | | PDT | | | | +-------+ +------+---+---+ +---+---+ | | | +---+---+ + +-------+ +---------+---+---+ | nitroglycerin 100 mcg/mL | Given | 06/09/2018 | 200 mcg | | | | syringe ONCE PRN, Starting Tue | | 12:43 | | | | | 06/09/18 at 1243, Intra-op | | PDT | | | | + +-------+ +---------+---+---+ +---+---+ | | | +---+---+ + +-------+ +------+---+---+ | ondansetron (ZOFRAN) injection | Given | 06/11/2018 | 4 mg | | | | 4 mg 4 mg, Intravenous, EVERY 6 | | 19:23 | | | | | HOURS PRN, Nausea, Vomiting, | | PDT | | | | | Starting Marycarmen 06/11/18 at 1635, | | | | [...] | | | | | Constipation, Starting [facility] 06/11/18 | | PDT | | | [...] | | +---+---+ + +-------+ +--------+---+---+ | verapamil injection ONCE PRN, | Given | 06/09/2018 | 2.5 mg | | | | Starting 06/09/18 at 1243, | | 12:43 | | | | | Intra-op | | PDT | | | | + +-------+ +--------+---+---+ +---+---+ | | | +---+---+ in this encounter
--- OUTSIDE RECORDS SUMMARY | ~2018-07-05 | XMS | Encounter Summary ---
Demographics + + + | Address | [address] | | | [place] [address] | + + + | Home Phone [...] | [facility] | | | and Ankitana | + + + | Organization | [facility] | [...] Providers + +------+ + | Care Senior Physical Therapist Name | Role | Phone [...] | | | | | ([facility]) | | | | | | [...] 06/11/ | Anesthesia | [facility] | Aba Sampson, | | | 2018 | Event | [facility] | [address] | | | | | OP [address] | [place] [address] | | | | | [place] | [phone] | | | | | [address] | | | | | | [phone] | | | +--------+ + + + [...] + + | 09 | 0 | An Checkout | Pre-use anesthesia machine/equipment checkout. | | /0 | 9 | | | | 6/ | 0 | | | | 20 | 6 | | | | 18 | | [...] +----+---+ + + | | 1 | Removed 1 U | | | | 0 | Autologous | | | | 5 | Blood | | | | 6 | | [...] +----+---+ + + | | 1 | Removed 1 U | | | | 1 | Autologous | | | | 1 | Blood | | | | 1 | | [...] normal Trace | | | | | NE. 8. Visible portions of ascending aorta and [...] +----+---+ + + | | 1 | Transfused | | | | 3 | 1 U | | | | 3 | Autologous | | | | 0 | Blood | | +----+---+ + + | | [...] +----+---+ + + | | 1 | Transfused | | | | 4 | 1 U | | | | 4 | Autologous | | | | 0 | Blood | | +----+---+ + + | | [...] Right:; lateral; | 12/29/14 1014 by | | | | torso; ulceration; scattered open | Alla Vernon RN | | | | areas and scab | | | +--------+ + + + | Wound | 02/22/15; Left:; lower; leg; | 02/22/15 0000 by | | | | abscess (healthing closed, 50 | Ashely Rodgers RN | | | | cent size) | | | +--------+ + + + | Incisi | 06/11/18; 1524; chest; | 06/11/18 1524 by Angel | | | on | sternotomy | Melia Munoz RN | | +--------+ + + + | Incisi | 06/11/18; 1524; Left; leg | 06/11/18 1524 by Angel | | | on | | R ELÍAS Munoz | | +--------+ + + + | Periph | 06/10/18; 1446; Right; Forearm; | 06/10/18 1446 by | 06/12/18 1200 by | | eral | icag-qzr-zuxgbv catheter system; | Monica Allison RN | Stephanie Daily RN | | IV | 22 gauge, 1 in length; | | | | | intradermal injection, tolerated | | | | | well; 06/12/18; 1200 | | | +--------+ + + + | Periph | 06/11/18; 0850; Right; Hand; 18 | 06/11/18 0850 by | 06/12/18 1240 by | | eral | gauge, 1 1/4 in length; 1; left | Steph Knowles, | Yomi Luna RN | | IV | wrist by [email or web address]; intradermal | RN | | | | injection, tolerated well; iv | | | | | inserted by [email or web address]; 06/12/18; 1240 | | | +--------+ + + + | Arteri | 06/11/18; 0957 (created via | 06/11/1857 by | 06/12/18 1139 by | | [...] Date: 06/11/18; | 06/11/18 100 by | 06/11/182341 by Es | | | Placement Time: 100 (created via | Sylvia Garber, | Javier Hayes RRT | | | procedure documentation); Mask | SETTER OFF Student | | | | Ventilation: EZ; Airway [...] | | | Yes; Yes; All; OR; 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; | | | | | Ashly Bradshaw [...] 1200 | Melia Munoz RN | Stephanie L Guzenko, RN | +--------+ + + + in this encounter Social History + + [...] Visit | | [facility] [address] | | | | | | [address] [place], | | | | | | [place] [address] | | | | | | [phone] | | | | | | | | +--------+---------+ + + + as of this encounter Results Anesthesia Central Venous Catheter Note (06/11/2018 1149) [...] this time 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 Performed by: ASHLY BRADSHAW Location | | | performed: [place] Electronically Signed by: Ashly Bradshaw | | | MD Kimble date/time: 06/11/2018 | | | 11:49 | | + + + + ------+ | Procedure Note | + ------+ | Ashly Bradshaw MD - 06/11/2018 1149 PDT Central [...] timePerson recording: | | inserterPerformed by: ASHLY BRADSHAWLocatakira performed: [place] Electronically Signed by: | | Ashly Bradshaw MD ESi date/time: 06/11/2018 11:49 | |Number of Lumens: [...] noted at this time | |Person recording: aircraft systems technician | |Performed by: ASHLY BRADSHAW | |Location performed: [place] | | | |Electronically Signed by: Ashly Bradshaw MD ESig date/time: 06/11/2018 11:49 | + ------+ Anesthesia [...] Procedure Note | + -------+ | Ashly Bradhsaw MD - 06/11/2018 1137 PDT Arterial Line [...] | | | Electronically Signed by: Ashly Bradshwa | | | ESig | | | date/time: 06/11/2018 11:11 | | + + + + + | Procedure Note | + + | Ashly Bradshaw MD - 06/11/2018 1111 PDT Anesthesia [...] |Electronically Signed by: MD Yo Cowart date/time: 11:11 | | | + + in this encounter Visit Diagnoses Not on filein this encounter Administered Medications + +---------+ +------+------+------+ | Medication Order | MAR | Action | Dose | Rate | Site | | | Action | Date | | | | + +---------+ +------+------+------+ | albumin 5% IVPB Intravenous, | New Bag | 06/11/2018 | | | | | Administer over 1 Hours, | | 9:34 | | | | | CONTINUOUS PRN, Starting Marycarmen | | PDT | | | | | 06/11/18 at 0934, Anesthesia | | | | | | | Intra-op | | | | | | + +---------+ +------+------+------+ +---+---+ | | | +---+---+ + +-------+ +------+---+---+ | aminocaproic acid (AMICAR) | Given | 06/11/2018 | 10 g | | | | injection PRN, Starting Marycarmen | | 14:34 | | | | | 06/11/18 at 1434, Anesthesia | | PDT | | | | [...] +---+---+---+ +---+---+ | | | +---+---+ + +---------+ +---+---+---+ | balanced electrolytes in water | New Bag | 06/11/2018 | | | | | (PLASMALYTE-148/NORMOSOL-R) | | 9:34 | | | | | infusion CONTINUOUS PRN, | | PDT | | | | | Starting [facility] 06/11/18 at 0934, | | | | | | | Anesthesia Intra-op | | | | | | + +---------+ +---+---+---+ +---------+ +---+---+---+ | New Bag | 06/11/2018 | | | | | | 14:44 | | | | | | PDT | | | | +---------+ +---+---+---+ +---+---+ | | | +---+---+ + +-------+ +-----+---+---+ | calcium chloride injection | Given | 06/11/2018 | 2 g | | | | Intravenous, PRN, Starting [facility] | | 14:51 | | | | | 06/11/18 at 1451, Anesthesia | | PDT | | | | | Intra-op | | | | | | + +-------+ +-----+---+---+ +---+---+ | | | +---+---+ + +-------+ +-----+---+---+ | ceFAZolin (ANCEF, KEFZOL) | Given | 06/11/2018 | 2 g | | | | injection Intravenous, PRN, | | 11:00 | | | | | Starting [facility] 06/11/18 at 1100, | | PDT | | | | | Anesthesia Intra-op | | | | | | + +-------+ +-----+---+---+ +---+---+ | | | +---+---+ + +---------+ + +-------+---+ | dexmedetomidine (PRECEDEX) 400 | New Bag | 06/11/2018 | 0.6 | 9.8 | | | mcg in 100 mL NS infusion | | 11:40 | mcg/kg/h | mL/hr | | | Intravenous, CONTINUOUS PRN, | | PDT | r | | | | Starting [facility] 06/11/18 at 1140, | | | | | | | Anesthesia Intra-op | | | | | | + +---------+ + +-------+---+ +---+---+ | | | +---+---+ + +-------+ +-------+---+---+ | esmolol (BREVIBLOC) 10 mg/mL | Given | 06/11/2018 | 50 mg | | | | injection Intravenous, PRN, | | 10:06 | | | | | Starting [facility] 06/11/18 at 1006, | | PDT | | | | | Anesthesia Intra-op | | | | | | + +-------+ +-------+---+---+ +---+---+ | | | +---+---+ + +-------+ +---------+---+---+ | heparin 1,000 units/mL | Given | 06/11/2018 | 26,000 | | | | injection PRN, Starting [facility] | | 12:12 | Units | | | | 06/11/18 at 1212, Anesthesia | | PDT | | | | | Intra-op | | | | | | + +-------+ +---------+---+---+ +---+---+ | | | +---+---+ + +-------+ +------+---+---+ | HYDROmorphone (DILAUDID) 2 | Given | 06/11/2018 | 2 mg | | | | mg/mL injection Intravenous, | | 14:20 | | | | | PRN, Pain, Starting [facility] 06/11/18 at | | PDT | | | | | 1420, Anesthesia Intra-op | | | | | | + +-------+ +------+---+---+ +---+---+ | | | +---+---+ + +-------+ +---------+---+---+ | insulin regular (humuLIN R, | Given | 06/11/2018 | 4 Units | | | | novoLIN R) injection | | 13:38 | | | | | Intravenous, PRN, Starting [facility] | | PDT | | | | | 06/11/18 at 1338, Anesthesia | | | | | | | Intra-op | | | | | | + +-------+ +---------+---+---+ +---+---+ | | | +---+---+ + +-------+ +-------+---+---+ | ketamine 100 mg/mL injection | Given | 06/11/2018 | 60 mg | | | | Intravenous, PRN, Starting [facility] | | 10:07 | | | | | 06/11/18 at 1007, Anesthesia | | PDT | | | | | Intra-op | | | | | | + +-------+ +-------+---+---+ +---+---+ | | | +---+---+ + +-------+ +--------+---+---+ | lidocaine (PF) 2% injection | Given | 06/11/2018 | 100 mg | | | | Intravenous, PRN, Starting [facility] | | 10:07 | | | | | 06/11/18 at 1007, Anesthesia | | PDT | | | | | Intra-op | | | | | | + +-------+ +--------+---+---+ +---+---+ | | | +---+---+ + +-------+ +------+---+---+ | midazolam (VERSED) 1 mg/mL | Given | 06/11/2018 | 3 mg | | | | injection Intravenous, PRN, | | 9:36 | | | | | Anxiety, Starting [facility] 06/11/18 at | | PDT | | | | | 0936, Anesthesia Intra-op | | | | | | + +-------+ +------+---+---+ +-------+ +------+---+---+ | Given | 06/11/2018 | 2 mg | | | | | 9:44 | | | | | | PDT | | | | +-------+ +------+---+---+ +---+---+ | | | +---+---+ + +---------+ +---------+-------+---+ | norepinephrine (LEVOPHED) | New Bag | 06/11/2018 | 2 | 0.1 | | | injection Intravenous, | | 11:00 | mcg/min | mL/hr | | | CONTINUOUS PRN, Starting [facility] | | PDT | | | | | 06/11/18 at 1100, Anesthesia | | | | | | | Intra-op | | | | | | + +---------+ +---------+-------+---+ + + +---------+-------+---+ | Rate/Dose Change | 06/11/2018 | 3 | 0.2 | | | | 11:24 | mcg/min | mL/hr | | | | PDT | | | | + + +---------+-------+---+ +---+---+ | | | +---+---+ + +-------+ +-------+---+---+ | norepinephrine (LEVOPHED) | Given | 06/11/2018 | 8 mcg | | | | injection Intravenous, PRN, | | 12:41 | | | | | Starting [facility]carmen 06/11/18 at 1248, | | PDT | | | | | Anesthesia Intra-op | | | | | | + +-------+ +-------+---+---+ +-------+ +--------+---+---+ | Given | 06/11/2018 | 16 mcg | | | | | 12:48 | | | | | | PDT | | | | +-------+ +--------+---+---+ | Given | 06/11/2018 | 16 mcg | | | | | 12:51 | | | | | | PDT | | | | +-------+ +--------+---+---+ +---+---+ | | | +---+---+ + + + +---------+-------+---+ | phenylephrine (HADLEY-SYNEPHRINE) | Rate/Dos | 06/11/2018 | 45 | 0.3 | | | 10 mg/mL injection Intravenous, | e Change | 10:57 | mcg/min | mL/hr | | | CONTINUOUS PRN, Starting [facility]carmen | | PDT | | | | | 06/11/18 at 1042, Anesthesia | | | | | | | Intra-op | | | | | | + + + +---------+-------+---+ + + +---------+-------+---+ | Rate/Dose Change | 06/11/2018 | 35 | 0.2 | | | | 11:04 | mcg/min | mL/hr | | | | PDT | | | | + + +---------+-------+---+ | Rate/Dose Change | 06/11/2018 | 15 | 0.1 | | | | 11:08 | mcg/min | mL/hr | | | | PDT | | | | + + +---------+-------+---+ +---+---+ | | | +---+---+ + +-------+ +---------+---+---+ | phenylephrine (HADLEY-SYNEPHRINE) | Given | 06/11/2018 | 100 mcg | | | | 10 mg/mL injection Intravenous, | | 10:57 | | | | | PRN, Starting [facility]carmen 06/11/18 at 1057, | | PDT | | | | | Anesthesia Intra-op | | | | | | + +-------+ +---------+---+---+ +-------+ +---------+---+---+ | Given | 06/11/2018 | 300 mcg | | | | | 11:04 | | | | | | PDT | | | | +-------+ +---------+---+---+ | Given | 06/11/2018 | 100 mcg | | | | | 14:25 | | | | | | PDT | | | | +-------+ +---------+---+---+ +---+---+ | | | +---+---+ + +-------+ +-------+---+---+ | propofol (DIPRIVAN) injection | Given | 06/11/2018 | 70 mg | | | | Intravenous, PRN, Starting [facility]carmen | | 10:07 | | | | | 06/11/18 at 1007, Anesthesia | | PDT | | | | | Intra-op | | | | | | + +-------+ +-------+---+---+ +-------+ +-------+---+---+ | Given | 06/11/2018 | 50 mg | | | | | 14:34 | | | | | | PDT | | | | +-------+ +-------+---+---+ +---+---+ | | | +---+---+ + +---------+ + +-------+---+ | propofol infusion (DIPRIVAN) 10 | New Bag | 06/11/2018 | 20 | 7.9 | | | mg/mL infusion Intravenous, | | 11:55 | mcg/kg/m | mL/hr | | | CONTINUOUS PRN, Starting Marycarmen | | PDT | in | | | | 06/11/18 at 1155, Anesthesia | | | | | | | Intra-op | | | | | | + +---------+ + +-------+---+ + + + +-------+---+ | Rate/Dose Change | 06/11/2018 | 50 | 19.7 | | | | 12:53 | mcg/kg/m | mL/hr | | | | PDT | in | | | + + + +-------+---+ +---+---+ | | | +---+---+ + +-------+ +--------+---+---+ | protamine injection | Given | 06/11/2018 | 250 mg | | | | Intravenous, PRN, Starting Marycarmen | | 14:28 | | | | | 06/11/18 at 1428, Anesthesia | | PDT | | | | | Intra-op | | | | | | + +-------+ +--------+---+---+ +---+---+ | | | +---+---+ + +---------+ +---+---+---+ | Red Blood Cells | New Bag | 06/11/2018 | | | | | (PRBC-INTRAOP)-Transfuse | | 15:16 | | | | | | | PDT | | | | + +---------+ +---+---+---+ +---+---+ | | | +---+---+ + +-------+ +-------+---+---+ | rocuronium (ZEMURON) injection | Given | 06/11/2018 | 70 mg | | | | Intravenous, PRN, Ventilator | | 10:07 | | | | | Dyssynchrony, Starting Marycarmen 06/11/18 | | PDT | | | | | at 1100, Anesthesia Intra-op | | | | | | + +-------+ +-------+---+---+ +-------+ +-------+---+---+ | Given | 06/11/2018 | 30 mg | | | | | 11:00 | | | | | | PDT | | | | +-------+ +-------+---+---+ | Given | 06/11/2018 | 40 mg | | | | | 12:38 | | | | | | PDT | | | | +-------+ +-------+---+---+ +---+---+ | | | +---+---+ + +-------+ +--------+---+---+ | SUFentanil (SUFENTA) injection | Given | 06/11/2018 | 20 mcg | | | | Intravenous, PRN, Pain, Starting | | 12:10 | | | | | [facility]en 06/11/18 at 1006, Anesthesia | | PDT | | | | | Intra-op | | | | | | + +-------+ +--------+---+---+ +-------+ +--------+---+---+ | Given | 06/11/2018 | 20 mcg | | | | | 12:27 | | | | | | PDT | | | | +-------+ +--------+---+---+ | Given | 06/11/2018 | 30 mcg | | | | | 12:52 | | | | | | PDT | | | | +-------+ +--------+---+---+ +---+---+ | | | +---+---+ in this encounter"
--- OUTSIDE RECORDS SUMMARY | ~2018-07-05 | XMS | Encounter Summary ---
Demographics + + + | Address | [address] | | | [place] [address] | + + + | Home Phone [...] + + | Author | [facility] | | | and Ankitana | + + + | Organization | [facility] [...] Team Providers + +------+ + | Care Rugby [employer] Footballer Name | Role | Phone | + [...] [facility] | [address] | vessel coronary | | | | [facility] | [address] | artery bypass | | | | [address], [address] | [place] [address] | (Primary Dx) | | | | [address] [place], [place] | [phone] | | | | | [address] | | | | | | [phone] | | | +--------+---------+ + + + [...] Last Filed Vital Signs + +---------+ + | Vital Sign | Reading | Time Taken | + +---------+ + | Blood Pressure | 119/76 | 06/29/2018947 PDT | + +---------+ + | Pulse | 88 | 06/29/2018947 PDT | + +---------+ + | Temperature | - | - | + +---------+ + | Respiratory Rate | - | - | + +---------+ + | Oxygen Saturation | 96% | 06/29/2018947 PDT | + +---------+ + | Inhaled Oxygen | - | - | | Concentration | | | + +---------+ + | Weight | - | - | + +---------+ + | Height | - | - | + +---------+ + | Body Mass Index | - | - | + +---------+ + in this encounter Functional Status + [...] of this encounter Instructions Patient Instructions - Jayne Rayo ARNP - 06/29/2018 1130 PDTFormatting of this n ote may be different from the original. 1. S/P CABG x 3 with L [...] artery bypass graft surgery (also called CABG, pronounced cabbage ). This surgery created new pathways [...] at home. Do n tlift anything heavier [id number]. Your healthcare provider may give you a [...] the hospital, begin with short wal ks ([id number]) at home. Go a little longer each [...] urinating Any unusual bleeding Date Last Reviewed: 07/06/201619995201-6280 The [employer]. [address] [place], [place] [id number]. All righ ts reserved. This information is not intended as a substitute for professional medical care. Always follow your healthcare professional's instructions. in this encounter Progress Notes Jayne Rayo ARNP - 06/29/2018 1130 PDTFormatting of this note may be different fr om the original. [facility] Post-Operative Visit Pt. Name/Age/: Smitha Fletcher 62 y.o. 1955 Med. Record Number: [id number] Date of Service: 06/29/2018 Primary procedure: 1. [...] a new PCP in her local area ([place], [place]) SUBJECTIVE: The chart and medications were [...] condition Electronically signed by: SALVATORE Restrepo, SHANA, REVERSING MILL ROLLER-C 06/29/2018 10:18 Jayne Rayo DNP, REVERSING MILL ROLLER-C Cardiothoracic [facility] [address], [address] [id number] Portions of this chart may have been created with [employer] voice recognition software. Occasi onal wrong-word or sound-alike substitutions may have occurred due to the inherent meyers itations of voice recognition software. Please read the chart carefully and recognize, using context, where these substitutions have occurred. 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
--- OUTSIDE RECORDS SUMMARY | ~2018-07-05 | XMS | Clinical Summary ---
Demographics + + + | Address | [address] | | | [place] [address] | + + + | Home Phone | | + + + | Preferred Language | Unknown | + + + | Marital Status | | + + + | Mormon Affiliation | 1041 | + + + | Race | Unknown | + + + | Ethnic Group | Unknown | + + + Author + + + | Author | [facility] | | | and Ankitana | + + + | Organization | [facility] | | [...] Team Providers + +------+ + | Care Bpm Architect Name | Role | Phone | [...] | | | | infarction) ([facility]), | | | | | | | | Polysubstance abuse | | | | | | | | ([facility]) | | | | | | | [...] #1Hemodynamic stable and | | in sinus rhythmWilson Street Hospitalt wall pain-pain controlContinue medical | | [...] + + + + | Methamphetamine use ([facility]) | 06/07/2018 | + + + + [...] --------+ + + + | Heroin dependence ([facility]) | 02/22/2015 | + + + + [...] + + | GILDARDO (acute kidney injury) ([facility]) | 02/22/2015 | + + + + [...] + + | 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 Non STEMI | | June [...] | 06/09/ | Surgery | | Shad Schuelr, | CV Cor Angio | | 2017 [...] | | Juancho Garcia, | | | PHYSICAL MEDICINE TEACHER - | | | 06/15/2018 | | [...] | | | MRN: | | | [id number] | | | ADMISSION | | | [...] | | released | | | from nursing home | | | before | | | [...] | | | * | | | Tsiha | | | Odette | | | [...] | | rehab. - | | | [place] | | | Cardiology. | | | [...] | | | Rosa, | | | PHYSICAL MEDICINE TEACHER. Go | | | on | | [...] | | ane [place] | | | [phone] | | [phone] | | | [...] | | | [place] | | | [address] | | | [phone] | | | Schedule | | | an | | | appointment | | | as soon as | | | possible | | | for a visit | | | with [facility] | | | [facility] | | | [facility] | | | [...] | | | [address] | | | [place] | | | [phone] | | | Time | | | [...] | | | Brsimbamann, | | | PHYSICAL MEDICINE TEACHER on | | | 06/15/2018 | | | at | | | 12:[facility] | [facility] | | | [address] | | [address], [place] | | | [address], | | | [place] | | | [address]Imzmv: | | | | | | [phone] [...] | | | Rosa, | | | PHYSICAL MEDICINE TEACHER as | | | PCP - | [...] | | | Brinkmann, | | | PHYSICAL MEDICINE TEACHER saw | | | the patient | [...] | Visit | | GABRIEL [address] [facility] [place]TONY | | | | | | [place], | | | | | | [place] [address] | | | | | | [phone] | | | | | | | [...] | | 09/16/ | AMGM-S | | [id number]: Qty: 2 | c | | BIOMEDICAL [...] [facility] | | | | | [facility] | | | | | LABORATORY | | | | | CERNER | + + + + + | Platelet Count | 231 | 150 - 400 K/uL | [facility] | | | | | [facility] | | | | | [facility] | | | | | LABORATORY | | | | | CERNER | + + + + + | MPV | 7.2 (L)Comment: | 7.5 - 11.2 fL | [facility] | | | Performed by [facility] [address] | | [facility] | | | [place] | | [facility] | | | [address] | | LABORATORY | | | | | CERNER | + + + + + + + | Specimen | + + | Blood | + + + + + + + | Performing | Address | City/State/Zipcode | Phone Number | | Organization | | | | + + + + + | [facility]ELISDEMIKarly [facility] | [address] | [place] [address] | | | [facility] | | | | | LABORATORY [...] by | | LABORATORY | | | [facility] [address], | | CERNER | | | [place] [address] | | | + + + + + + + | Specimen | + + | Blood | + + + + + + + | Performing | Address | City/State/Zipcode | Phone Number | | Organization | | | | + + + + + | [facility] | [address] | [place] [address] | | | [facility] | | | | | LABORATORY [...] + + + | Product Code | [id number] | | [facility] | | | | | [facility] | | | | | [facility] | | | | [facility] | + + + + + | UNIT # | [id number] | | [facility] | | | | | [facility] | | | | | [facility] | | | | [facility] | + + + + + | UNIT ABO | O | | [facility] LAB | | | | | [facility] | | | | | [facility] | | | | [facility] | + + + + + | UNIT RH | NEG | | [facility] LAB | | | | | [facility] | | | | | [facility] | | | | [facility] | + + + + + | CROSSMATCH INTERP | Compatible | | [facility] | | | | | [facility] | | | | | [facility] | | | | [facility] | + + + + + | Unit Status | RE | | [facility] | | | | | [facility] | | | | | [facility] | | | | [facility] | + + + + + | Blood Product | [id number] | | [facility] | | Expiration Date and | | | [facility] | | Time | | | [facility] | | | | [facility] | + + + + + | Product Blood Type | 9500 | | [facility] | | Barcode | | | [facility] | | | | | [facility] | | | | [facility] | + + + + + + + + | Narrative | Performed At | + + + | Specimen Expiration Date: [id number] | [facility] | | | [facility] | | | [facility] | | | [facility] | + + + + + + + + | Performing | Address | City/State/Zipcode | Phone Number | | Organization | | | | + + + + + | [facility] | [address] | [place] [address] | [phone] | | [facility] | | | | | [facility] [...] | [facility] | | | Performed by [facility] [address] | | [facility] | | | [place] | | MEDICAL CENTER | | | [address] | | LABORATORY | | | | | CERNER | + + + + + + + | Specimen | + + | Blood | + + + + + + + | Performing | Address | City/State/Zipcode | Phone Number | | Organization | | | | + + + + + | [facility] | [address] | [place] [address] | | | [facility] | | | | | LABORATORY [...] | TRACEMASTER | | Duration:184 msP Horizontal Reva:5 degP Front Reva:55 degQ Onset:508 | | | msQRSD Interval:104 msQT Interval:452 msQTcB:452 msQTcF:452 msQRS | | | Horizontal Reva:129 degQRS Reva:-53 degI-40 Horizontal Reva:77 degI-40 | | | Front Reva:-44 degT-40 Horizontal Reva:204 degT-40 Front Reva:-83 | | | degT Horizontal Reva:95 degT Wave Reva:39 degS-T Horizontal Reva:79 | | | degS-T Front Reva:49 degSeverity:- ABNORMAL ECG -INTERP:SINUS | | | RHYTHMINTERP:CONSIDER RIGHT VENTRICULAR HYPERTROPHYINTERP:PROBABLE | | | INFERIOR INFARCT, AGE INDETERMINATEINTERP:BORDERLINE ST ELEVATION, | | | ANTERIOR LEADSElectronically signed by: ELIZABETH CAMPBELL 06-12-2018 | | | 07:37:14 | | |QRS Horizontal Reva:129 deg | | |QRS Reva:-53 deg | | |I-40 Horizontal Reva:77 deg | | |I-40 Front Reva:-44 deg | | |T-40 Horizontal Reva:204 deg | | |T-40 Front Reva:-83 deg | | |T Horizontal Reva:95 deg | | |T Wave Reva:39 deg | | |S-T Horizontal Reva:79 deg | | |S-T Front Reva:49 deg | | |Severity:- ABNORMAL ECG - [...] [address] | [place] [address] | [phone] | + + + + + Glucose, Respiratory (06/11/20182300)Only the most recent of 2 results within the time per iod is included. + + + + + | Component | Value | Ref Range | Performed At | + + + + + | GLUCOSE | 112 (H)Comment: | 65 - 99 mg/dL | [facility] | | | Performed by [facility] [address] | | [facility] | | | [address], [place] | | [facility] | | | [address] | | LABORATORY | | | | | JAMINNER | + + + + + + + | Specimen | + + | Blood | + + + + + + + | Performing | Address | City/State/Zipcode | Phone Number | | Organization | | | | + + + + + | AMILCAR [facility] | [address] | [place] [address] | | | [facility] | | | | | RIVERA [...] % | [facility] | | | by [facility] [address], | | [facility] | | | [place] [address] | | MEDICAL CENTER | | |Performed by [facility] [address], [place] [address] | | LABORATORY | | | | | [place] | + + + ----+ + + + | Specimen | + + | Blood - Artery | + + + + + + + | Performing | Address | City/State/Zipcode | Phone Number | | Organization | | | | + + + + + | AMILCAR [facility] | [address] | [place] [address] | | | [facility] | | | | | LABORATORY [place] | | | | + + + + + Potassium Whole Blood (06/11/2018 2301) + + + + + | Component | Value | Ref Range | Performed At | + + + + + | K | 5.4 (H)Comment: | 3.5 - 5.0 mmol/L | [facility] | | | Performed by [facility] [address] | | [facility] | | | [place] | | [facility] | | | [address] | | LABORATORY | | | | | JAMINNER | + + + + + + + | Specimen | + + | Blood | + + + + + + + | Performing | Address | City/State/Zipcode | Phone Number | | Organization | | | | + + + + + | [facility] | [address] | [place], [place] | | | [facility] | | | | | LABORATORY CERNER | | | | + + + + + Potassium (06/11/20181957) + + + +-------- ---------+ | Component | Value | Ref Range | Perform ed At | + + + +-------- ---------+ | K | 3.9Comment: Performed | 3.5 - 5.0 mmol/L | [facility] | | | by [facility] [address], | | [facility] | | | [place] | | [facility] | | |Performed by [facility] [address], [place] | | LABORAT NADIA | | | | | CERNER | + + + +-------- ---------+ + + | Specimen | + + | Blood | + + + + + + + | Performing | Address | City/State/Zipcode | Phone Number | | Organization | | | | + + + + + | AMILCAR [facility] | [address] | [place] [address] | | | [facility] | | | | | RIVERA [...] | | | | | seconds.Performed by [facility] | | | | | [address], | | | | | [place] [address] | | | + + + + + + + | Specimen | + + | Blood | + + + + + + + | Performing | Address | City/State/Zipcode | Phone Number | | Organization | | | | + + + + + | PROVIDED[facility] BRENDAN | [address] | [place] [address] | | | [facility] | | | | | LABORATORY [...] [facility] | | | | | [facility] | | | | | LABORATORY | | | | | CERNER | + + + + + | INR | 1.2 (H)Comment: Usual | 0.9 - 1.1 | [facility] | | | oral anticoagulant | | [facility] | | | range: 2.0 to 3.0 High | | [facility] | | | level oral | | LABORATORY | | | anticoagulant range: 2.5 | | CERNER | | | to 3.5Performed by [facility] | | | | | [address] [place], | | | | | [place] [address] | | | + + + + + + + | Specimen | + + | Blood | + + + + + + + | Performing | Address | City/State/Zipcode | Phone Number | | Organization | | | | + + + + + | [facility] | [address] | [place] [address] | | | HEART MEDICAL CENTER | | | | | LABORATORY CERNER | | | | + + + + + Comprehensive Metabolic Panel (06/11/2018 9428)Only the most recent of 2 results within [...] by | | LABORATORY | | | [facility] [address], | | [place] | | | [place] [address] | | | + + + + + + + | Specimen | + + | Blood | + + + + + + + | Performing | Address | City/State/Zipcode | Phone Number | | Organization | | | | + + + + + | YARELISDEMIKarly [facility] | [address] | [place] [address] | | | [facility] | | | | | RIVERA [place] | | | | + + + + + Lactic Acid, Arterial, Respiratory (06/11/2018 1636) + + + + + | Component | Value | Ref Range | Performed At | + + + + + | Lactate, Arterial | 1.0Comment: Performed | 0.5 - 1.6 mmol/L | [facility] | | | by [place] [address], | | [facility] | | | [place] [address] | | [facility] | | |Performed by [facility] [address], [place] [address] | | LABORATORY | | | | | CERNER | + + + + + + + | Specimen | + + | Blood | + + + + + + + | Performing | Address | City/State/Zipcode | Phone Number | | Organization | | | | + + + + + | [facility] | [address] | [place] [address] | | | HEART [facility] | | | | [...] | [facility] | | Normalized | by [facility] [address], | | [facility] | | | [place] [address] | | [facility] | | |Performed by [facility] [address], [place] [address] | | LABORATORY | | | | [...] [address] | [place] [address] | | | [facility] | | | | | LABORATORY [...] | PROVIDED[facility] | | | Performed by [facility] [address] | | [facility] | | | [address], [place] | | [facility] | | | [address] | | LABORATORY | | | | | CERNER | + + + + + + + | Specimen | + + | Blood | + + + + + + + | Performing | Address | City/State/Zipcode | Phone Number | | Organization | | | | + + + + + | AMILCAR [facility] | [address] | [place] [address] | | | [facility] | | | | | LABORATORY [...] [facility] | | | | | [facility] | | | | [...] L | [facility] | | | by [facility] [address], | | [facility] | | | [place] [address] | | MEDICAL CENTER | | |Performed by [facility] [address], [place] [address] | | LABORATORY | | | | | [place] | + + + ----+ + + + | Specimen | + + | Blood | + + + + + + + | Performing | Address | City/State/Zipcode | Phone Number | | Organization | | | | + + + + + | AMILCAR [facility] | [address] | [place] [address] | | | [facility] | | | | | RIVERA [...] | assay has been evaluated | | [facility] | | | for screening [...] | | | | | seconds.Performed by [facility] | | | | | [address], | | | | | [place] [address] | | | + + + + + + + | Specimen | + + | Blood | + + + + + + + | Performing | Address | City/State/Zipcode | Phone Number | | Organization | | | | + + + + + | AMILCAR [facility] | [address] | [place] [address] | | | [facility] | | | | | LABORATORY CERNER | | | | + + + + + ECHO Transesophageal (CHIQUITA) (06/11/2018 1305) + -----+ + | Narrative | Performed At | + -----+ + | | [facility] | | Transesophageal Echocardiography Report (CHIQUITA) Demographics Patient | | | Name 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 Pulmonary artery | | | lnapkh28. Normal pericardium. No pericardial fluid. No pleural [...] Report | | (CHIQUITA) Demographics Patient Name 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 Pulmonary artery uttogh41. Normal pericardium. No pericardial fluid. No pleural [...] [facility] | | Normalized | Performed by [facility] [address] | | [facility] | | | [address], [place], [place] | | [facility] | | | [address] | | LABORATORY | | | | | [place] | + + + + + + + | Specimen | + + | Blood | + + + + + + + | Performing | Address | City/State/Zipcode | Phone Number | | Organization | | | | + + + + + | [facility] | [address] 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 | |Performed by: SANJEEV BRADSHAW | |Location performed: [place] | | | |Electronically Signed by: Sanjeev [place] MD [facility] date/time: 06/11/2018 11:49 | + ------+ Anesthesia [...] REFERENCE LAB | | | | | [facility] | | | | | [facility] | | | | [facility] | + + + + + | ABO | O | | [facility] LAB | | | | | [facility] | | | | | [facility] | | | | [facility] | + + + + + | Rh Type | Negative | | [facility] LAB | | | | | [facility] | | | | | [facility] | | | | [facility] | + + + + + + + | Specimen | + + | Blood | + + + + + | Narrative | Performed At | + + + | Specimen Expiration Date: [id number] | [facility] | | | [facility] | | | [facility] | | [facility] | + + + + + + + + | Performing | Address | City/State/Zipcode | Phone Number | | Organization | | | | + + + + + | [facility] | [address] | [place] [address] | [phone] | | [facility] | | | | | [facility] [...] | [facility] | | | by [facility] [address], | | [facility] | | | [place] [address] | | MEDICAL CENTER | | |Performed by [facility] [address], [place] [address] | | LABORATO RY | | | | | CERNER | + + + +--------- --------+ + + | Specimen | + + | Tissue - Nares | + + + + + + + | Performing | Address | City/State/Zipcode | Phone Number | | Organization | | | | + + + + + | [facility]ELISCARLOS [facility] | [address] | [place] [address] | | | [facility] | | | | | LABORATORY [...] + + + + + | Specific [place] | 1.010 | 1.001 - 1.030 | [...] | [facility] | | | Performed by [facility] [address] | | [facility] | | | [place] | | [facility] | | | [address] | | LABORATORY | | | | [...] [address] | [place] [address] | | | HEART MEDICAL [facility]ENTER | [...] [facility] | | | | | [facility] | | | | | LABORATORY | | | | | CERNER | + + + + + | Hepatitis C Ab | >11.0 (H)Comment: | 0.0 - 0.9 | [facility] | | | | | [facility] | | | | | [facility] | | | Nega | [...] Amplification test | | | | | ([id number]).Performed At: | | | | | [address] [facility] [place] [address] | | | | | [facility] [address] | | | | | [place], [place] | | | | | [id number] | | | | | L Ph:[phone] | | | + + + + + + + | Specimen | + + | Blood | + + + + + + + | Performing | Address | City/State/Zipcode | Phone Number | | Organization | | | | + + + + + | Y[facility]ELISDEMIKarly [facility] | [address] | [place] [address] | | | [facility] | | | | | LABORATORY [...] [facility] | | Ag | | | [facility] | | | | [facility] | | | | | LABORATORY | | | | | [place] | + + + + + | Hepatitis B Core Ab, | Positive (A) | Negative | [facility] | | Total | | | [facility] | | | | | [facility] | | | | | LABORATORY | | | | | CERNER | + + + + + | Hepatitis C Ab | >11.0 (H)Comment: | 0.0 - 0.9 | [facility] | | | | | [facility] | | | | | [facility] | | | [place] | [...] Amplification test | | | | | ([id number]).Performed At: | | | | | [address] [facility] [address] | | | | | [address] [address] | | | | | [place], [place] | | | | | [phone] | | | | | L Ph:[phone] | | | + + + + + | HEP A TOTAL AB | Positive (A) | Negative | [facility] | | | | | [facility] | | | | | [facility] | | | | [...] + | [facility] MATAMOROS | [address] | [place] [address] | | | [facility] | | | | | LABORATORY [...] less than 7% as the | | [facility] | | | goal for diabetic | | LABORATORY | | | therapy. | | [place] | + + + + + | Estimated Average | 111Comment: The ADA | 65 - 154 mg/dL | [facility] | | Glucose | considers an Estimated | | [facility] | | | Average Glucose (eAG) | | [facility] | | | result of LT [...] | | | | | formula.Performed by [facility] | | | | | [address], | | | | | [place] [address] | | | + + + + + + + | Specimen | + + | Blood | + + + + + + + | Performing | Address | City/State/Zipcode | Phone Number | | Organization | | | | + + + + + | [facility] | [address] | [place] [address] | | | [facility] | | | | | LABORATORY CERNER | | | | + + + + + ABO Rh (06/10/2018648) + + + + + | Component | Value | Ref Range | Performed At | + + + + + | ABO | O | | [facility] | | | | | [facility] | | | | | [facility] | | | | [facility] | + + + + + | Rh Type | Negative | | [facility] LAB | | | | | [facility] | | | | | [facility] | | | | [facility] | + + + + + + + + | Narrative | Performed At | + + + | Specimen Expiration Date: [id number] | [facility] | | | [facility] | | | [facility] | + + + + + + + + | Performing | Address | City/State/Zipcode | Phone Number | | Organization | | | | + + + + + | [facility] | [address] | [place] [address] | [phone] | | [facility] | | | | | [facility] | | | | [facility] | | | | + + + + + Antibody Screen (06/10/201849) + + + + + | Component | Value | Ref Range | Performed At | + + + + + | Antibody Screen | Positive | | [facility] | | | | | [facility] | | | | | [facility] | | | | [facility] | + + + + + + + + | Narrative | Performed At | + + + | Specimen Expiration Date: [id number] | [facility] | | | [facility] | | | [facility] | | [facility] | + + + + + + + + | Performing | Address | City/State/Zipcode | Phone Number | | Organization | | | | + + + + + | [facility] | [address] | [place] [address] | [phone] | | [facility] | | | | | [facility] | | | [facility] | | | | + + + + + Antibody identification (06/10/201845) + + + + + | Component | Value | Ref Range | Performed At | + + + + + | Antibody ID | [facility] | | REFERENCE LAB | | | | | [facility] | | | | | [facility] | | | | [facility] | + + + + + + + + | Narrative | Performed At | + + + | Specimen Expiration Date: [id number] | RE[facility]ENCE [facility] | | | [facility] | | | [facility] | + + + + + + + + | Performing | Address | City/State/Zipcode | Phone Number | | Organization | | | | + + + + + | RE[facility]ENCE [facility] | [address] | [place] [address] | [phone] | | [facility] | | | | | [facility] | | | [facility] | | | | + + + + + CV CARDIAC PROCEDURE (06/09/20185) + +-------+ + + | Component | [...] | proximal 40% LAD, 95% ostial septal bi tri operator, 70% mid and distal LAD, 100% [...] | | | LAD, 95% ostial septal bi tri operator, 70% mid and distal LAD, 100% [...] + + | Performing | Address | City/State[facility] | Phone Number | | Organization [...] lateral castillo from | | | prior [place]. 4. Mild destinee infarct ischemia. LARGE SEVERE inferior and | | | Lateral RI. Cath will be recommended to see best [...] [facility] | | | | | [facility] | | | | | LABORATORY | | | | | [facility] | + + + --+ + | Absolute Basophils | 0.07Comment: Performed | 0.00 - 0.10 K/u L | [facility] | | | by [facility] [address] [facility] [address], | | [facility] | | | [place] [address] | | MEDICAL CENTER | | |Performed by [facility] [address] [facility] [address], [place] [address] | | LABORATORY | | | | | CERNER | + + + --+ + + + | Specimen | + + | Blood | + + + + + + + | Performing | Address | City/State/Zipcode | Phone Number | | Organization | | | | + + + + + | AMILCAR CARD[facility] | [address] | [place] [address] | | | [facility] | | | | | LABORATORY [...] | NOHEMY CE | | | by [facility] [address], | | [address] | | | [place] [address] | | [facility] | | |Performed by [facility] [address], [place] [address] | | DENAATO RY | | | | | CERNER | + + + +--------- --------+ + + | Specimen | + + | Blood | + + + + + + + | Performing | Address | City/State/Zipcode | Phone Number | | Organization | | | | + + + + + | AMILCAR CARDONA | [address] | [place] [address] | | | [facility] | | | | | LABORATORY [...] | and read back by LEANN Sandhu [facility] | | | at 06/08/2018 10:03:33 [...] | | | | | TroponinPerformed by [facility] | | | | | [address], | | | | | [place] [address] | | | + + + + + + + | Specimen | + + | Blood | + + + + + + + | Performing | Address | City/State/Zipcode | Phone Number | | Organization | | | | + + + + + | AMILCAR CARDONA | [address] [facility] [address] | [place] [address] | | | [facility] | | | | | LABORATORY [...] by | | LABORATORY | | | [facility] [address], | | JAMINNER | | | [place] [address] | | | + + + + + + + | Specimen | + + | Blood | + + + + + + + | Performing | Address | City/State/Zipcode | Phone Number | | Organization | | | | + + + + + | AMICLAR CARDONA | [address] | [place] [address] | | | [facility] | | | | | [place] [...] | [facility] | | | Performed by [facility] [address] | | [facility] | | | [address] [place] | | MEDICAL CENTER | | | [address] | | LABORATORY | | | | | CERNER | + + + + + + + | Specimen | + + | Blood | + + + + + + + | Performing | Address | City/State/Zipcode | Phone Number | | Organization | | | | + + + + + | AMILCAR CARDONA | [address] | [place] [address] | | | [facility] | | | | | [place] [...] [facility] | | | | | [facility] | | | | | LABORATORY | | | | | CERNER | + + + + + | U Tox Comment | See CommentComment: | | [facility] | | | This entire battery is | | [facility] | | | for screening purposes | | [facility] | | | only. Results [...] | | | | | battery.Performed by [facility] | | | | | [address], | | | | | [place] [address] | | | + + + + + + + | Specimen | + + | Urine | + + + + + + + | Performing | Address | City/State/Zipcode | Phone Number | | Organization | | | | + + + + + | AMILCAR CARDONA | [address] | [place] [address] | | | [facility] | | | | | LABORATORY JAMINNER | | | | + + + + + Myoglobin (06/07/2018909) + + + +----- + | Component | Value | Ref Range | Perf ormed At | + + + +----- + | MYOGLOBIN, SERUM | 69Comment: Performed by | 0 - 69 ng/mL | [facility] | | | [facility] [address], | | [facility] | | | [place] | | [facility] | | |Performed by [facility] [address] [facility] [address], [place] | | LABO RATORY | | [...] [address] | [place] | | | [facility] | | | | | LABORATORY JAMINNER | | | | + + + + + Lipase (06/07/2018909) + + + + ----+ | Component | Value | Ref Range | Performed At | + + + + ----+ | Lipase | 32Comment: Performed by | 11 - 82 U/L | [facility] | | | [facility] [address], | | [facility] | | | [place] [address] | | MEDICAL CENT ER | | |Performed by [facility] [address], [place] [address] | | LABORATORY | | | | | CERNER | + + + + ----+ + + | Specimen | + + | Blood | + + + + + + + | Performing | Address | City/State/Zipcode | Phone Number | | Organization | | | | + + + + + | AMILCAR CARDONA | [address] | [place] [address] | | | [facility] | | | | | LABORATORY ALTAGRACIA | | | | + + + + + Extra Hold Tube(s) (06/07/2018909) + + + + ---+ | Component | Value | Ref Range | Performed At | + + + + ---+ | Extra Tube | DrawnComment: Performed | | [facility] | | | by [facility] [address], | | [facility] | | | [place] [address] | | MEDICAL CENTE R | | |Performed by [facility] [address] [facility] [address], [place] [address] | | LABORATORY | | | | | JAMINNER | + + + + ---+ + + | Specimen | + + | Blood | + + + + + + + | Performing | Address | City/State/Zipcode | Phone Number | | Organization | | | | + + + + + | [facility] | [address] | [place] [address] | | | [facility] | | | | | LABORATORY CERNER | | | | + + + + + CK Total (06/07/201803) + + + + -----+ | Component | Value | Ref Range | Performed A t | + + + + -----+ | CK TOTAL | 84Comment: Performed by | 30 - 240 U/L | [facility] | | | [facility] [address], | | [facility] | | | [place] [address] | | MEDICAL [address] | | |Performed by [facility] [address], [place] [address] | | LABORATORY | | | | | CERNER | + + + + -----+ + + | Specimen | + + | Blood | + + + + + + + | Performing | Address | City/State/Zipcode | Phone Number | | Organization | | | | + + + + + | AMILCAR CARDONA | [address] | [place] [address] | | | [facility] | | | | | [place] [...] +--------+ +---------+ | MEDICARE | MEDICA | [id number] | Medica | [phone] | | | | RE | | re | [phone] | | | | PART A | | | | | | | AND B | | | | | + +--------+ +--------+ +---------+ | DEPARTMENT OF | [place] | [phone] | Indemn | | | | CORRECTIONS | RE | | ity | | | + +--------+ +--------+ +---------+ | MEDICAID SHAH | MEDICA | [id number] | Medica | [phone] | | [...] Self | [birth year] | Home: | [address] | | | al/Fam | | 1955 | [phone] | [place] [address] | | | daljit | | | [phone] | | + +--------+ +--------+ + + | [place] | 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
--- OUTSIDE RECORDS SUMMARY | ~2018-07-05 | XMS | Encounter Summary ---
Demographics + + + | Address | [address] | | | [place] [address] | + + + | Home Phone [...] | Author | [facility] | | | and Ankitana | + + + | Organization | [facility] | | [...] Team Providers + +------+ + | Care Crime Scene Investigator Name | Role | Phone | [...] | [address] | [place] [address] | (Primary Dx) | | | | [address] [place], [place] | [phone] | | | | | [address] | | | | | | [phone] | | | +--------+---------+ + + + [...] at home. Do n tlift anything heavier [id number]. Your healthcare provider may give you a [...] the hospital, begin with short wal ks ([id number]) at home. Go a little longer each [...] urinating Any unusual bleeding Date Last Reviewed: 07/06/201619998360-6073 [employer]. [address] [place], [place] [address]. All righ ts reserved. This information is not intended as a substitute for professional medical care. Always follow your healthcare professional's instructions. in this encounter Progress Notes Jayne Rayo ARNP - 06/29/2018 1130 PDTFormatting of this note may be different fr om the original. [facility] Post-Operative Visit Pt. Name/Age/: Smitha Fletcher 62 y.o. 1955 Med. Record Number: [id number] Date of Service: 06/29/2018 Primary procedure: 1. [...] a new PCP in her local area ([place], [place]) SUBJECTIVE: The chart and medications were [...] condition Electronically signed by: SALVATORE Restrepo, SHANA, REPRODUCTION PRODUCTION MANAGER-C 06/29/2018 10:18 Jayne Rayo DNP, REPRODUCTION PRODUCTION MANAGER-C Cardioth[facility]acic [facility] [address], [address] [id number] Portions of this chart may have been created with [employer] voice recognition software. 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
--- OUTSIDE RECORDS SUMMARY | ~2018-07-05 | XMS | Encounter Summary ---
Demographics + + + | Address | [address] | | | [place] [address] | + + + | Home Phone [...] Organization | [facility] [...] Team Providers + +------+ + | Care Ripening Room Attendant Name | Role | Phone | + +------+ + | Yolanda Lee | PCP | | + +------+ + Encounter Details +--------+ + + + + | Date | Type | Department | Care Team | Description | +--------+ + + + + | 06/11/ | Procedure | [facility] | | | | 2018 | Pass | [facility] | | | | | | OP [address] | | | | | | [place] | | | | | | [address] | | | | | | [phone] | | | +--------+ + + + [...] | Visit | | [address] | | | | | | [address] [place], | | | | | | [place] [address] | | | | | | [phone] | | | | | | | | +--------+---------+ + + + as of this encounter Visit Diagnoses Not on filein this encounter"
--- OUTSIDE RECORDS SUMMARY | ~2018-07-05 | XMS | Encounter Summary ---
Demographics + + + | Address | [address] | | | [place] [address] | + + + | Home Phone [...] Author | [facility] | | | and Ankitana | + + + | Organization | [facility] | | | and Ankitana | + + + | Address | Unknown | + + + | Phone | Unavailable | + + + Support + + +---------+ + | Name | Relationship | Address | Phone | + + +---------+ + | iLzz Cruz ECON | Unknown | | + + +---------+ + | Becky Cruz | ECON | Unknown | | + + +---------+ + Care Team Providers + +------+ + | Care Contract Negotiation Specialist Name | Role | Phone | [...] | | | | | | (FORMERLY [facility]) | | | | | | [...] [address] | [place] [address] | | | | | [place] | [phone] | | | | | [address] | | | | | | [phone] | | | +--------+ + + + [...] normal Trace | | | | | SD. 8. 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 | | | | Ventilation: EZ; [...] | | | Yes; Yes; All; [place]; Manager Filter; | | | | | Ashly Bradshaw [...] | | | | | | [place] [address] | | | | | | [phone] | | | | | | | [...] this time Person | | | recording: intake nurse Performed by: ASHLY BRADSHAW Location | | [...] noted at this time | |Person recording: intake nurse | |Performed by: ASHLY BRADSHAW | |Location [...] -------+ | Ashly Bradshaw MD - 06/11/2018 1137 PDT Arterial [...] | | Electronically Signed by: Ashly Bradshaw | | | ESig | | | [...] PDT | | | | | Starting [facility] 06/11/18 at 0934, | | | | [...] | r | | | | Starting [facility] 06/11/18 at 1140, | | | [...]
--- OUTSIDE RECORDS SUMMARY | ~2018-07-05 | XMS | Encounter Summary ---
Demographics + + + | Address | [address] | | | [place] [address] | + + + | Home Phone [...] | Author | [facility] | | | and Ankitana | + + + | Organization | [facility] | | [...] Providers + +------+ + | Care In Store Banker Name | Role | Phone | + [...] | | | [address] [place] [address] | [address] | | | | | [address] | | | | | | [phone] | | | +--------+---------+ + + + [...] Pharmacist notified and gave patient number for [facility] to transfer medications in AM. Given [...] note may be different from the original. [facility] [...] precauti ons. She was recently released from long term before arriving at the ER and our long term care social worker has confirmed that she is [...] and occupational therapy for post-op rehab. - [facility]. Disposition: Home with family. Patient was advised to call our office or their metallurgy laboratory technician with any questions. Follow-Up: Follow-up Information SALVATORE Ventura. Go on 06/23/2018. Specialty: Nurse Practitioner Why: Hospital follow up scheduled at 11:[address] Roa Contact information: [address] [facility] [address] Hemanth Webster MD. Schedule an appointment as soon as possible for a visit on 06/29/2018 . Specialty: Cardiothoracic Surgery Why: 11:30 AM Contact information: [address], [place] [address] Formerly named [facility] [address] Schedule an appointment as soon as possible for a visit with [facility]. Why: Please call to schedule your 1 month follow-up with cardiology. Contact information: [address] [place] [address] [facility] [address] Time spent on discharge planning: greater than 30 minutes CABG Checklist ACEI/ARB/ARNI prescribed: No - Hypotension Aspirin prescribed: Not addressed Beta mateus (evidence-based) prescribed: Yes Beta mateus prescribed: N/A - LV EF is less than 41% High intensity statin prescribed: Yes Referral to cardiac rehab: Yes Tobacco cessation counseling provided: Yes [facility] [address], [address] [address] [place] [address] Portions of this chart may have been created with kWhOURS voice recognition software. Occasi onal wrong-word or [...] breath, please call Luis Alfredo estrada at [phone]. 2. For problems or concerns with your incision or your chest, please call [facility]) at [phone]. After Coronary Artery Bypass Surgery When you [...] by medication, call your healthcare pr fuad. [phone] [facility], [address] [place] [address], [place] [id number]. All rights reserve d. This information is [...] | | | | | infarction) ([facility]), | | | | | | | Polysubstance abuse | | | | | | | ([facility]ER[facility]) | | | | | | + [...] this encounter [address] Sherrie Ernestine, PLANNING CONSULTANT - 06/15/2018 1314 PDTSOCIAL WORK PLAN: Discharge with friend INTERVENTION: order to verify pt's disposition at discharge acknowledged. SW met with pt at bedside. Pt states she was brought to [facility] by [facility] but states she is no l onger in custody. No guards at the door. SW Mix House Tender suggested SW contact long term to confirm. SW spoke with [facility] who confirms pt was released. SW spoke with pt regarding discharge plan. Pt plans to discharge to friend's home. SW available should further discharg e planning needs arise. Keith Harp MD - 06/15/2018 2639 PDTFormatting of this note may be different fro m the original. [facility] PATIENT NAME: Smitha Fletcher : [...] dilol. 2. Follow-up requested. Keith Harp MD, [facility] Portions of this chart were created with kWhOURS voice recognition software. Occasional wro ng-word or "sound-alike" substitutions may have occurred due to the inherent limitations of voice recognition software. Please read the chart carefully and recognize, using context, w here those substitutions have occurred.Deonte Lee MD - 06/15/2018 0715 PDTFormattin g of this note may be different from the original. [facility] Pt. Name/Age/: Smitha Fletcher 62 y.o. 1955 Med. Record Number: [id number] Date of admission: 06/07/2018 POD # 4 Procedure: CABG X 3 Surgeon: Eleanor Subjective New complaints: poor sternal precautions. No c/o this morning. Acknowledges that came from [facility]. Not sure where she is going. No [...] signed by: Hector Decker PA-C Cardiothoracic Surgery [facility] [address], [address] [place] [address] 06/15/2018 7:15 [facility] Agree with detailed plan nicely outlined by Ashley Hamilton, PLANNING CONSULTANT - 06/14/2018 1305 PDTSOCIAL WORK PLAN: TBD INTERVENTION: SW acknowledged order for return to long term. Pt came from long term per chart review and may have to go back there upon DC. SW will continue to follow for DC planning. Frandy Squires ARNP - 06/14/2018 0911 PDTBlood Glucose log reviewed. Patient is stabl e, with controlled blood glucose. Not requiring insulin Diabetes Service will sign off. Medication Reconciliation for diabetes medications has been completed. Please contact us at [phone] should the need arise. Thank you for [...] signed by: Rip Yao M.D. CardioThoracic Surgery [facility] 06/14/2018 9:23 [facility] Pt. Name/Age/: Smitha Fletcher 62 y.o. 1955 Med. Record Number: [id number] Date of admission: 06/07/2018 POD # 3 [...] with the patient is going. Willl have long term care social worker start arrangements. Problem List Patient [...] signed by: Hector Decker PA-C Cardiothoracic Surgery [facility] [address], [address] [place] [address] 06/14/2018 8:59 [facility] Dave Bansal MD - 06/14/2018 0807 PDTFormatting of this note may be different from the original. [facility] PATIENT NAME: Smitha Fletcher : [...] Portions of this chart were created with kWhOURS voice recognition software. Occasional wro ng-word or "sound-alike" substitutions may have occurred due to the inherent limitations of voice recognition software. Please read the chart carefully and recognize, using context, w here those substitutions have occurred.Frandy Squires, [facility] - 06/13/2018 1437 PDTFormat ting of [...] Per RN; she will be discharging from [facility] to long term that she came from. Assessment for glucose [...] by: SALVATORE Elias 06/13/2018 14:53 Diabetes team, [facility] [phone] Dave Bansal MD - 06/13/2018 1027 PDTFormatting of this note may be different from the original. [facility] PATIENT NAME: Smitha Fletcher : [...] Portions of this chart were created with kWhOURS voice recognition software. Occasional wro ng-word or [...] signed by: Rip Yao M.D. CardioThoracic Surgery [facility] 06/13/2018 9:35 [facility] Pt. Name/Age/: Smitha Fletcher 62 y.o. 1955 Med. Record Number: [id number] Date of admission: 06/07/2018 POD #2 Procedure: [...] Arabella Sign Date/Time: 06/12/2018 4:16 A M Xr [...] signed by: Hector Decker PA-C Cardiothoracic Surgery [facility] [address], [address] [place] [address] 06/13/2018 8:11 [facility] Kezia Pérez RN - 06/12/2018 1510 PDTPt [...] tolerated well. Plan transfer to floor.Yecenia Shirley, [facility] - 06/12/2018 1220 PDTSOCI AL WORK D/C PLAN: TBD INTERVENTION: Sw following for discharge planning. NEXT STEPS: Follow progress and therapy recommendations for discharge planning. ASSESSMENT/CHART REVIEW: Pt resides in [place]. She has Medicare coverage. COPD, is risk for readmission. If pt d oes not need placement she may benefit from home health post acute care. D/C TRANSPORT: TBD BARRIERS TO D/C: Medical stability CONTACTS: Hanna Sethi: [phone] Bansal MD - 06/12/2018 1133 PDTFormatting of this note may be different from the original. [facility] PATIENT NAME: Smitha Fletcher : [...] 1.0 0.4 - 1.5 % Comment PS8 WOO080 O2 Content, Arterial 15.7 15.0 - 23.0 [...] 22:29 Result Value Ref Range Product Code F3323E41 UNIT # [id number] UNIT ABO O UNIT RH NEG CROSSMATCH INTERP Compatible Unit Status XM Blood Product Expiration Date and Time Product Blood Type Barcode 9500 Product Code U9905Q97 UNIT # [id number] UNIT ABO O UNIT RH NEG CROSSMATCH [...] 6:53 Result Value Ref Range Product Code O7298K08 UNIT # [id number] UNIT ABO O UNIT RH NEG CROSSMATCH INTERP Compatible Unit Status XM Blood Product Expiration Date and Time 761368815132 Product Blood Type Barcode 9500 POC Glucose [...] may b e different from the original. [facility] Hemanth Webster [...] is a 62 y.o.femalewith hx substance abuse, [place] and stent [place] [address] Brittnee Sandoval cardiology. She was brought from long term, complaining of severe 8-9/10 burning chest pain [...] - Single Lumen 06/10/18 1446 Right Forearm xusu-uby-hazasv catheter sys tem 22 gauge;1 in length [...] - 99 mg/dL Final Comment: Performed by [facility] [address] [place] [address] All pertinent labs and imaging have been [...] this chart may have been created with kWhOURS voice recognition software. Occasi onal wrong-word or [...] TTE 06/08/18 showed LVEF of 45% with rnmomgwm-nj-mubghp hypokinesis of lateral and inferio r castillo. [...] female with a pmhx of polysubstance abuse, CAD/OH s/p stent (2011), ischemic EFrEF (LVEF of 45%), HTN, bipolar disorder, nicotine dependence and incarce ration that presented from long term with severe left sided chest pain that [...] educationa l purposes. Please refer to attending/resident/physician shipping and receiving assistant/nurse practitioner note r egarding further patient care. Geno Carver, LEAD APPLICATIONS DEVELOPER - 06/10/2018 0957 PDTAssessed for Pulmonary Rehab. [...] TTE on 018 revealed LVEF = 45%, hsiliqzg-dj-ydrrqh hypokinesis of lateral and inferior castillo, julian [...] Complaint: Chest pain Hospital Course: 62F PMH CAD/OH s/p stent (2011), ischemic HFrEF (LVEF = 45%), HTN, polysubstance abuse (met hamphetamine & marijuana), HCV, bipolar disorder, nicotine dependence and incarceration pres ented from long term w/ severe, burning, substernal chest pain w/ radiation to left shoulder and associated nausea and vomiting. Workup in ED revealed troponin elevation (peak 0.311 this admission) and patient was admitt ed for further workup and management w/ cardiology. Labs in ED also revealed UDS positive fo r amphetamine, methamphetamine, benzodiazepines and opiates. TTE revealed LVEF = 45%, ndcgqtjf-yf-mdgcnc hypokinesis of lateral and inferior castillo, mitr [...] is a 62 y.o.femalewith hx substance abuse, OH and stent [place] [address] Sandoval cardiology. She was brought from long term, complaining of severe 8-9/10 burning chest pain [...] hypokinesis present but the patient has has OH's in the past . Mild LVH. Stress [...] Single Lumen 06/09/18 0836 Left Distal Forearm sbhk-gyy-bxvtrf cathet er system 20 gauge;1 1/4 in [...] this chart may have been created with kWhOURS voice recognition software. Occasi onal wrong-word or [...] SERVICE DATE: 06/09/18 PRIMARY CARE: Yolanda Lee [facility] Jeffy Ramos MD Internal Medicine Resident CARDIOLOGY [...] TTE on 018 revealed LVEF = 45%, chztbicz-ml-xohyxe hypokinesis of lateral and inferior castillo, julian [...] Complaint: Chest pain Hospital Course: 62F PMH CAD/OH s/p stent (2011), ischemic HFrEF (LVEF = 45%), HTN, polysubstance abuse (met hamphetamine & marijuana), HCV, bipolar disorder, nicotine dependence and incarceration pres ented from long term w/ severe, burning, substernal chest pain w/ radiation to left shoulder and associated nausea and vomiting. Workup in ED revealed troponin elevation (peak 0.311 this admission) and patient was admitt ed for further workup and management w/ cardiology. Labs in ED also revealed UDS positive fo r amphetamine, methamphetamine, benzodiazepines and opiates. TTE revealed LVEF = 45%, gyaraxxn-hv-intmpe hypokinesis of lateral and inferior castillo, mitr [...] 62 y.o. female with hx substance abuse, OH and stent [place] [address] Riya banuelos cardiology. She was brought from long term, complaining on sever -06/15 burning chest pain [...] hypokinesis present but the patient has has OH's in the past . Mild LVH. Stress [...] 06/07/18 1545 Right Anterior (palmar);Medial Forearm ove i-sfn-aeoxbf catheter system 20 gauge;other (see comments) 1 [...] this chart may have been created with kWhOURS voice recognition software. Occasi onal wrong-word or [...] Portions of this chart were created with kWhOURS voice recognition software. Occasional wro ng-word or "sound-alike" substitutions may have occurred due to the inherent limitations of voice recognition software. Please read the chart carefully and recognize, using context, w here those substitutions have occurred.Rhiannon Marcus RN - 06/07/2018 1509 [id number] ed to floor. Somunlent. Asking very [...] | Visit | | GABRIEL [address] [facility] [address] | | | | | | [place] [place], | | | | | | [place] [address] | | | | | | [phone] | | | | | | | [...] | [facility] | | | Performed by [facility] [address] | | [facility] | | | [place] | | MEDICAL CENTER | | | [address] | | LABORATORY | | | | | [place] | + + + + + + + | Specimen | + + | Blood | + + + + + + + | Performing | Address | City/State/Zipcode | Phone Number | | Organization | | | | + + + + + | [facility] | [address] | [place] [address] | | | [facility] | | | | | LABORATORY [...] by | | LABORATORY | | | [facility] [address], | | [place] | | | [place] [address] | | | + + + + + + + | Specimen | + + | Blood | + + + + + + + | Performing | Address | City/State/Zipcode | Phone Number | | Organization | | | | + + + + + | [facility] | [address] | [place] [address] | | | [facility] | | | | | [place] [...] + + + | Product Code | [id number] | | [facility] | | | | | [place] | | | | | [facility] | | | | | [facility] | + + + + + | UNIT # | [id number] | | [facility] | | | | | [place] | | | | | [facility] | | | | | [facility]ENTER | + + + + + | UNIT ABO | O | | [facility] | | | | | [place] | | | | | [facility] | | | | | CENTER | + + + + + | UNIT RH | NEG | | [facility] | | | | | [place] | | | | | [facility] | | | | | CENTER | + + + + + | CROSSMATCH INTERP | Compatible | | [facility] | | | | | [place] [facility] | | | | | [facility] | | | | | CENTER | + + + + + | Unit Status | RE | | [facility] | | | | | [place] | | | | | [facility] | | | | | [facility]ENTER | + + + + + | Blood Product | [id number] | | [facility] | | Expiration Date and | | | [place] | | Time | | | [facility] | | | | | CENTER | + + + + + | Product Blood Type | 9500 | | [facility] | | Barcode | | | [place] | | | | | [facility] | | | | | CENTER | + + + + + + + + | Narrative | Performed At | + + + | Specimen Expiration Date: [id number] | [facility] | | | [place] | | | [facility] | | [facility] | + + + + + + + + | Performing | Address | City/State/Zipcode | Phone Number | | Organization | | | | + + + + + | [facility] | [address] | [place] [address] | [phone] | | [facility] [facility] | | | | | [facility] [...] | [facility] | | | Performed by [facility] [address] | | [facility] | | | [place] | | [facility] | | | [address] | | LABORATORY | | | | [address] | [place] [address] | | | [facility] | | | | | LABORATORY [place] | | | | + + + + + Red Blood Cells (06/14/20181211) + + + + + | Component | Value | Ref Range | Performed At | + + + + + | Product Code | [id number] | | [facility] | | | | | [place] [facility] | | | | | [facility] | | | | | [facility]ENTER | + + + + + | UNIT # | [id number] | | [facility] | | | | | [place] [facility] | | | | | [facility] | | | | | CENTER | + + + + + | UNIT ABO | O | | [facility] | | | | | [place] | | | | | [facility] | | | | | CENTER | + + + + + | UNIT RH | NEG | | [facility] | | | | | [place] | | | | | [facility] | | | | | CENTER | + + + + + | CROSSMATCH INTERP | Compatible | | [facility] | | | | | [place] [facility] | | | | | [facility] | | | | | CENTER | + + + + + | Unit Status | IS | | [facility] | | | | | [place] [facility] | | | | | [facility] | | | | | CENTER | + + + + + | Blood Product | [id number] | | [facility] | | Expiration Date and | | | [place] [facility] | | Time | | | [facility] | | | | | CENTER | + + + + + | Product Blood Type | 9500 | | [facility] | | Barcode | | | [place] | | | | | [facility] | | | | | CENTER | + + + + + | Product Code | [id number] | | [facility] | | | | | [place] [facility] | | | | | [facility] | | | | | [facility]ENTER | + + + + + | UNIT # | [id number] | | [facility] | | | | | [place] [facility] | | | | | [facility] | | | | | CENTER | + + + + + | UNIT ABO | O | | [facility] | | | | | [place] [facility] | | | | | [facility] | | | | | CENTER | + + + + + | UNIT RH | NEG | | [facility] | | | | | [place] | | | | | [facility] | | | | | CENTER | + + + + + | CROSSMATCH INTERP | Compatible | | [facility] | | | | | [place] [facility] | | | | | [facility] | | | | | CENTER | + + + + + | Unit Status | IS | | [facility] | | | | | [place] | | | | | [facility] | | | | | [facility]ENTER | + + + + + | Blood Product | [id number] | | [facility] | | Expiration Date and | | | [place] | | Time | | | [facility] | | | | | CENTER | + + + + + | Product Blood Type | 9500 | | [facility] | | Barcode | | | [place] | | | | | [facility] | | | | | CENTER | + + + + + + + + | Narrative | Performed At | + + + | Specimen Expiration Date: [id number] | [facility] | | | [place] | | | [facility] | | [facility] | + + + + + + + + | Performing | Address | City/State/Zipcode | Phone Number | | Organization | | | | + + + + + | [facility] | [address] | [place] [address] | [phone] | | [place] [facility] | | | | | [facility] [...] | [facility] | | | Performed by [facility] [address] | | [facility] | | | [address] [place], [place] | | [facility] | | | [address] | | LABORATORY | | | | | [place] | + + + + + + + | Specimen | + + | Blood | + + + + + + + | Performing | Address | City/State/Zipcode | Phone Number | | Organization | | | | + + + + + | [facility] | [address] | [place] [address] | | | [facility] | | | | | LABORATORY [place] | | | | + + + + + POC Glucose (06/14/20181) + + + + + | Component | Value | Ref Range | Performed At | + + + + + | Glucose, POC | 148 (H)Comment: | 65 - 99 mg/dL | [facility] | | | Performed by [facility] [address] | | [facility] | | | [address] [place] | | MEDICAL CENTER | | | [address] | | LABORATORY | | | | | [place] | + + + + + + + | Specimen | + + | Blood | + + + + + + + | Performing | Address | City/State/Zipcode | Phone Number | | Organization | | | | + + + + + | [facility] | [address] | [place] [address] | | | [facility] | | | | | LABORATORY [place] | | | | + + + + + POC Glucose (06/13/20182038) + + + + + | Component | Value | Ref Range | Performed At | + + + + + | Glucose, POC | 165 (H)Comment: | 65 - 99 mg/dL | [facility] | | | Performed by [facility] [address] | | [facility] | | | [address], [place] | | MEDICAL CENTER | | | [address] | | LABORATORY | | | | | [place] | + + + + + + + | Specimen | + + | Blood | + + + + + + + | Performing | Address | City/State/Zipcode | Phone Number | | Organization | | | | + + + + + | [facility] | [address] | [place] [address] | | | [facility] | [...] | [facility] | | | [address] [place], [place] | | [facility] | | | [address] | | LABORATORY | | | | | [place] | + + + + + + + | Specimen | + + | Blood | + + + + + + + | Performing | Address | City/State/Zipcode | Phone Number | | Organization | | | | + + + + + | [facility] | [address] | [place] [address] | | | [facility] | | | | | LABORATORY [place] | | | | + + + + + POC Glucose (06/13/2018 1120) + + + + + | Component | Value | Ref Range | Performed At | + + + + + | Glucose, POC | 131 (H)Comment: | 65 - 99 mg/dL | [facility] | | | Performed by [facility] [address] | | [facility] | | | [address], [place] | | MEDICAL CENTER | | | [address] | | LABORATORY | | | | | [place] | + + + + + + + | Specimen | + + | Blood | + + + + + + + | Performing | Address | City/State/Zipcode | Phone Number | | Organization | | | | + + + + + | [facility] | [address] | [place] [address] | | | [facility] | | | | | [place] | | | | + + + + + POC Glucose (06/13/2018624) + + + + + | Component | Value | Ref Range | Performed At | + + + + + | Glucose, POC | 159 (H)Comment: | 65 - 99 mg/dL | [facility] | | | Performed by [facility] [address] | | [facility] | | | [place] | | [facility] | | | [address] | | LABORATORY | | | | | CERNER | + + + + + + + | Specimen | + + | Blood | + + + + + + + | Performing | Address | City/State/Zipcode | Phone Number | | Organization | | | | + + + + + | [facility] | [address] | [place] [address] | | | [facility] | [...] | [facility] | | | Performed by [facility] [address] | | [facility] | | | [address] [place], [place] | | MEDICAL CENTER | | | [address] | | LABORATORY | | | | | [place] | + + + + + + + | Specimen | + + | Blood | + + + + + + + | Performing | Address | City/State/Zipcode | Phone Number | | Organization | | | | + + + + + | [facility] | [address] | [place] [address] | | | [facility] | | | | | [...] by | | LABORATORY | | | [facility] [address], | | CERNER | | | [place] [address] | | | + + + + + + + | Specimen | + + | Blood | + + + + + + + | Performing | Address | City/State/Zipcode | Phone Number | | Organization | | | | + + + + + | [facility] | [address] | [place] [address] | | | [facility] | | | | | [place] | | | | + + + + + POC Glucose (06/13/2018241) + + + + + | Component | Value | Ref Range | Performed At | + + + + + | Glucose, POC | 152 (H)Comment: | 65 - 99 mg/dL | [facility] | | | Performed by [facility] [address] | | [facility] | | | [place] | | MEDICAL CENTER | | | [address] | | LABORATORY | | | | | C[place] | + + + + + + + | Specimen | + + | Blood | + + + + + + + | Performing | Address | City/State/Zipcode | Phone Number | | Organization | | | | + + + + + | [facility] | [address] | [place] [address] | | | [facility] | | | | | LABORATORY [place] | | | | + + + + + POC Glucose (06/12/20180) + + + + + | Component | Value | Ref Range | Performed At | + + + + + | Glucose, POC | 172 (H)Comment: | 65 - 99 mg/dL | [facility] | | | Performed by [facility] [address] | | [facility] | | | [address] [place], [place] | | [facility] | | | [address] | | LABORATORY | | | | [...] [address] | [place] [address] | | | [facility] | | | | | LABORATORY CERNER | | | | + + + + + POC Glucose (06/12/2018 1641) + + + + + | Component | Value | Ref Range | Performed At | + + + + + | Glucose, POC | 132 (H)Comment: | 65 - 99 mg/dL | [facility] | | | Performed by [facility] [address] | | [facility] | | | [address], [place] | | [facility]ENTER | | | [address] | | LABORATORY | | | | | CERNER | + + + + + + + | Specimen | + + | Blood | + + + + + + + | Performing | Address | City/State/Zipcode | Phone Number | | Organization | | | | + + + + + | [facility] | [address] | [place] [address] | | | [facility] | | | | | LABORATORY CERNER | | | | + + + + + POC Glucose (06/12/2018 1602) + + + + + | Component | Value | Ref Range | Performed At | + + + + + | Glucose, POC | 126 (H)Comment: | 65 - 99 mg/dL | [facility] | | | Performed by [facility] [address] | | [facility] | | | [place] | | [facility] | | | [address] | | LABORATORY | | | | [...] [address] | [place] [address] | | | [facility] | | | | | LABORATORY CERNER | | | | + + + + + POC Glucose (06/12/2018 1227) + + + + + | Component | Value | Ref Range | Performed At | + + + + + | Glucose, POC | 177 (H)Comment: | 65 - 99 mg/dL | [facility] | | | Performed by [facility] [address] | | [facility] | | | [place] | | [facility] | | | [address] | | LABORATORY | | | | | CERNER | + + + + + + + | Specimen | + + | Blood | + + + + + + + | Performing | Address | City/State/Zipcode | Phone Number | | Organization | | | | + + + + + | YARELISDEMIK[facility] | [address] | [place] [address] | | | [facility] | | | | | LABORATORY [place] | | | | + + + + + POC Glucose (06/12/2018 0659) + + + +-------- ---------+ | Component | Value | Ref Range | Perform ed At | + + + +-------- ---------+ | Glucose, POC | 98Comment: Performed by | 65 - 99 mg/dL | [facility] | | | [facility] [address], | | [facility] | | | [place], [place] | | [facility] | | |Performed by [facility] [address], [place], [place] | | LABORAT ORY | | | | | CERNER | + + + +-------- ---------+ + + | Specimen | + + | Blood | + + + + + + + | Performing | Address | City/State/Zipcode | Phone Number | | Organization | | | | + + + + + | [facility] | [address] | [place], [place] | | | [facility] | | | | | LABORATORY CERNER | | | | + + + + + POC Glucose (06/12/2018599) + + + + + | Component | Value | Ref Range | Performed At | + + + + + | Glucose, POC | 100 (H)Comment: | 65 - 99 mg/dL | [facility] | | | Performed by [facility] [address] | | [facility] | | | [address] [place], [place] | | [facility] | | | [address] | | LABORATORY | | | | [...] [address] | [place] [address] | | | [facility] | | | | | LABORATORY [place] | | | | + + + + + POC Glucose (06/12/2018 0508) + + + +-------- ---------+ | Component | Value | Ref Range | Perform ed At | + + + +-------- ---------+ | Glucose, POC | 87Comment: Performed by | 65 - 99 mg/dL | [facility] | | | [facility] [address], | | [facility] | | | [place] [address] | | [facility] | | |Performed by [facility] [address] [facility] [place] [address] | | LABORAT ORShahnaz | | | | | CERNER | + + + +-------- ---------+ + + | Specimen | + + | Blood | + + + + + + + | Performing | Address | City/State/Zipcode | Phone Number | | Organization | | | | + + + + + | [facility] | [address] | [place] [address] | | | [facility] | | | | | LABORATORY [...] mg/dL | [facility] | | | [facility] [address], | | [facility] | | | [place] [address] | | [facility] | | |Performed by [facility] [address], [place] [address] | | LABORAT ORY | | | | | CERNER | + + + +-------- ---------+ + + | Specimen | + + | Blood | + + + + + + + | Performing | Address | City/State/Zipcode | Phone Number | | Organization | | | | + + + + + | AM[facility] | [address] | [place] [address] | | | [facility] | | | | | [place] | | | | + + + + + ECG 12 lead (06/12/2018311) + + + | Narrative | Performed At | + + + | HEART RATE:60 | [facility] | | bpmRR Interval:1000 msAtrial Rate:61 msP-R Interval:176 msP | [facility] | | Duration:184 msP Horizontal Afton:5 degP Front Afton:55 degQ Onset:508 | | | msQRSD Interval:104 msQT Interval:452 msQTcB:452 msQTcF:452 msQRS | | | Horizontal Afton:129 degQRS Afton:-53 degI-40 Horizontal Afton:77 degI-40 | | | Front Afton:-44 degT-40 Horizontal Afton:204 degT-40 Front Afton:-83 | | | degT Horizontal Afton:95 degT Wave Afton:39 degS-T Horizontal Afton:79 | | | degS-T Front Afton:49 degSeverity:- ABNORMAL ECG -INTERP:SINUS | | | RHYTHMINTERP:CONSIDER RIGHT VENTRICULAR HYPERTROPHYINTERP:PROBABLE | | | INFERIOR INFARCT, AGE INDETERMINATEINTERP:BORDERLINE ST ELEVATION, | | | ANTERIOR LEADSElectronically signed by: ELIZABETH CAMPBELL 06-12-2018 | | | 07:37:14 | | |QRS Horizontal Afton:129 deg | | |QRS Afton:-53 deg | | |I-40 Horizontal Afton:77 deg | | |I-40 Front Afton:-44 deg | | |T-40 Horizontal Afton:204 deg | | |T-40 Front Afton:-83 deg | | |T Horizontal Afton:95 deg | | |T Wave Afton:39 deg | | |S-T Horizontal Afton:79 deg | | |S-T Front Afton:49 deg | | |Severity:- ABNORMAL ECG - [...] + + | [facility] | [address] | [place] [address] | [phone] | + + + + + CBC [...] | [facility] | | | Performed by [facility] [address] | | [facility] | | | [address] [place] | | MEDICAL CENTER | | | [address] | | LABORATORY | | | | | CERNER | + + + + + + + | Specimen | + + | Blood | + + + + + + + | Performing | Address | City/State/Zipcode | Phone Number | | Organization | | | | + + + + + | [facility] | [address] | [place] [address] | | | [facility] | | | | | LABORATORY [...] HEART | | | kidney | | [facility] | | | function.Performed by | | LABORATORY | | | [facility] [address], | | [place] | | | [place] [address] | | | + + + + + + + | Specimen | + + | Blood | + + + + + + + | Performing | Address | City/State/Zipcode | Phone Number | | Organization | | | | + + + + + | [facility] | [address] | [place] [address] | | | [facility] | | | | | [place] | | | | + + + + + POC Glucose (06/12/2018 0239) + + + + + | Component | Value | Ref Range | Performed At | + + + + + | Glucose, POC | 107 (H)Comment: | 65 - 99 mg/dL | [facility] | | | Performed by [facility] [address] | | [facility] | | | [address] [place], [place] | | [facility] | | | [address] | | LABORATORY | | | | | CERNER | + + + + + + + | Specimen | + + | Blood | + + + + + + + | Performing | Address | City/State/Zipcode | Phone Number | | Organization | | | | + + + + + | [facility] | [address] | [place] [address] | | | [facility] | | | | | LABORATORY CERNER | | | | + + + + + POC Glucose (06/12/2018 0135) + + + +-------- ---------+ | Component | Value | Ref Range | Perform ed At | + + + +-------- ---------+ | Glucose, POC | 99Comment: Performed by | 65 - 99 mg/dL | [facility] | | | [facility] [address], | | [facility] | | | [place] [address] | | [facility] | | |Performed by [facility] [address], [place] [address] | | LABORAT NADIA | | | | | JAMINNER | + + + +-------- ---------+ + + | Specimen | + + | Blood | + + + + + + + | Performing | Address | City/State/Zipcode | Phone Number | | Organization | | | | + + + + + | AM[facility] | [address] | [place] [address] | | | [facility] | | | | | LABORATORY [place] | | | | + + + + + POC Glucose (06/11/20188) + + + + + | Component | Value | Ref Range | Performed At | + + + + + | Glucose, POC | 105 (H)Comment: | 65 - 99 mg/dL | [facility] | | | Performed by [facility] [address] | | [facility] | | | [place] | | [facility] | | | [address] | | LABORATORY | | | | | CERNER | + + + + + + + | Specimen | + + | Blood | + + + + + + + | Performing | Address | City/State/Zipcode | Phone Number | | Organization | | | | + + + + + | AM[facility] | [address] | [place] [address] | | | [facility] | | | | | LABORATORY CERNER | | | | + + + + + POC Glucose (06/11/20189) + + + + + | Component | Value | Ref Range | Performed At | + + + + + | Glucose, POC | 113 (H)Comment: | 65 - 99 mg/dL | [facility] | | | Performed by [facility] [address] | | [facility] | | | [address], [place] | | [facility] | | | [address] | | LABORATORY | | | | | CERNER | + + + + + + + | Specimen | + + | Blood | + + + + + + + | Performing | Address | City/State/Zipcode | Phone Number | | Organization | | | | + + + + + | Y[facility]ELISDEMIKarly [facility] | [address] | [place] [address] | | | [facility] | | | | | LABORATORY CERNER | | | | + + + + + Potassium Whole Blood (06/11/20182300) + + + + + | Component | Value | Ref Range | Performed At | + + + + + | K | 5.4 (H)Comment: | 3.5 - 5.0 mmol/L | [facility] | | | Performed by [facility] [address] | | [facility] | | | [address], [place] | | MEDICAL CENTER | | | [address] | | LABORATORY | | | | | CERNER | + + + + + + + | Specimen | + + | Blood | + + + + + + + | Performing | Address | City/State/Zipcode | Phone Number | | Organization | | | | + + + + + | [facility] | [address] | [place] [address] | | | [facility] | [...] | [facility] | | | Performed by [facility] [address] | | [facility] | | | [address] [place] | | [facility] | | | [address] | | LABORATORY | | | | | CERNER | + + + + + + + | Specimen | + + | Blood | + + + + + + + | Performing | Address | City/State/Zipcode | Phone Number | | Organization | | | | + + + + + | [facility] | [address] | [place] [address] | | | HEART [facility] | | | | | LABORATORY CERNER | | | | + + + + + Blood Gas, Arterial (06/11/20182300) + + + ----+ + | Component | Value | Ref Range | Performed At | + + + ----+ + | pH, Arterial | 7.35 (L) | 7.37 - 7.47 | [facility] | | | | | [facility] [...] [facility] | | | | | [facility] | | | | | LABORATORY | | | | | CERNER | + + + ----+ + | O2SAT COOX ARTERIAL | 95.9Comment: Performed | 92.0 - 99.0 % | [facility] | | | by [facility] [address], | | [facility] | | | [place] [address] | | [facility] | | |Performed by [facility] [address], [place] [address] | | LABORATORY | | | | [...] [address] | [place] [address] | | | [facility] | | | | | LABORATORY CERNER | | | | + + + + + POC Glucose (06/11/20186) + + + + + | Component | Value | Ref Range | Performed At | + + + + + | Glucose, POC | 116 (H)Comment: | 65 - 99 mg/dL | [facility] | | | Performed by [facility] [address] | | [facility] | | | [place], [place] | | MEDICAL CENTER | | | [address] | | LABORATORY | | | | | [place] | + + + + + + + | Specimen | + + | Blood | + + + + + + + | Performing | Address | City/State/Zipcode | Phone Number | | Organization | | | | + + + + + | YARELISCARLOS CARD[facility] | [address] [place] [address]. | [place] [address] | | | [facility] | [...] | [facility] | | | Performed by [facility] [address] | | [facility] | | | [place] | | [facility] | | | [address] | | LABORATORY | | | | | CERNER | + + + + + + + | Specimen | + + | Blood | + + + + + + + | Performing | Address | City/State/Zipcode | Phone Number | | Organization | | | | + + + + + | [facility] | [address] | [place], [place] | | | [facility] | | | | | LABORATORY [place] | | | | + + + + + Potassium (06/11/20181957) + + + +-------- ---------+ | Component | Value | Ref Range | Perform ed At | + + + +-------- ---------+ | K | 3.9Comment: Performed | 3.5 - 5.0 mmol/L | [facility] | | | by [facility] [address], | | [facility] | | | [place], [place] | | [facility] | | |Performed by [facility] [address], [place], [place] | | [facility] | | | | | JAMINNER | + + + +-------- ---------+ + + | Specimen | + + | Blood | + + + + + + + | Performing | Address | City/State/Zipcode | Phone Number | | Organization | | | | + + + + + | AMILCAR [facility] | [address] | [place] [address] | | | [facility] | | | | | LABORATORY [place] | | | | + + + + + POC Glucose (06/11/20182) + + + + + | Component | Value | Ref Range | Performed At | + + + + + | Glucose, POC | 156 (H)Comment: | 65 - 99 mg/dL | [facility] | | | Performed by [facility] [address] | | [facility] | | | [place] | | [facility] | | | [address] | | LABORATORY | | | | | JAMINNER | + + + + + + + | Specimen | + + | Blood | + + + + + + + | Performing | Address | City/State/Zipcode | Phone Number | | Organization | | | | + + + + + | [facility] | [address] | [place] [address] | | | [facility] | | | | | LABORATORY CERNER | | | | + + + + + ECG 12 lead (06/11/2018 1659) + + + | Narrative | Performed At | + + + | HEART RATE:72 | [facility] | | bpmRR Interval:833 msAtrial Rate:72 msP-R Interval:176 msP | [facility] | | Duration:180 msP Horizontal Afton:-10 degP Front Afton:68 degQ Onset:512 | | | msQRSD Interval:110 msQT Interval:444 msQTcB:486 msQTcF:472 msQRS | | | Horizontal Afton:112 degQRS Afton:-63 degI-40 Horizontal Afton:100 | | | degI-40 Front Afton:-58 degT-40 Horizontal Afton: degT-40 Front Afton:160 | | | degT Horizontal Afton:104 degT Wave Afton:-11 degS-T Horizontal | | | Afton:104 degS-T Front Afton:32 degSeverity:- ABNORMAL ECG -INTERP:SINUS | | | RHYTHMINTERP:PROBABLE LEFT ATRIAL ABNORMALITYINTERP:NONSPECIFIC IVCD | | | WITH LADINTERP:INFERIOR INFARCT, AGE INDETERMINATEINTERP:LATERAL | | | INFARCT, OLDElectronically signed by: ELIZABETH CAMPBELL 06-12-2018 | | | 11:18:02 | | |QRS Horizontal Afton:112 deg | | |QRS Afton:-63 deg | | |I-40 Horizontal Afton:100 deg | | |I-40 Front Afton:-58 deg | | |T-40 Horizontal Afton: deg | | |T-40 Front Afton:160 deg | | |T Horizontal Afton:104 deg | | |T Wave Afton:-11 deg | | |S-T Horizontal Afton:104 deg | | |S-T Front Afton:32 deg | | |Severity:- ABNORMAL ECG - [...] + + | [facility] REY | [address] | [place] [address] | [phone] | + + + + + PTT [...] | | | | | seconds.Performed by [facility] | | | | | [address], | | | | | [place] [address] | | | + + + + + + + | Specimen | + + | Blood | + + + + + + + | Performing | Address | City/State/Zipcode | Phone Number | | Organization | | | | + + + + + | [facility] | [address] | [place] [address] | | | [facility] | | | | | [place]IVER[place] [...] [facility] | | | | | [facility] | | | | | LABORATORY | | | | | CERNER | + + + + + | INR | 1.2 (H)Comment: Usual | 0.9 - 1.1 | [facility] | | | oral anticoagulant | | [facility] | | | range: 2.0 to 3.0 High | | [facility] | | | level oral | | LABORATORY | | | anticoagulant range: 2.5 | | CERNER | | | to 3.5Performed by [facility] | | | | | [address] [place], | | | | | [place] [address] | | | + + + + + + + | Specimen | + + | Blood | + + + + + + + | Performing | Address | City/State/Zipcode | Phone Number | | Organization | | | | + + + + + | [facility] | [address] | [place] [address] | | | [facility] | | | | | LABORATORY CERNER | | | | + + + + + Comprehensive Metabolic Panel (06/11/2018 1637) + + + + + | Component | Value | Ref Range | Performed At | + + + + + | NA | 146 (H) | 135 - 145 mmol/L | [facility] | | | | | [facility] | | | | | MEDICAL [...] by | | LABORATORY | | | [facility] [address], | | [place] | | | [place] [address] | | | + + + + + + + | Specimen | + + | Blood | + + + + + + + | Performing | Address | City/State/Zipcode | Phone Number | | Organization | | | | + + + + + | [facility] | [address] | [place] [address] | | | [facility] | | | | | [place] [...] | [facility] | | | Performed by [facility] [address] | | [facility] | | | [address] [place] | | MEDICAL CENTER | | | [address] | | LABORATORY | | | | | CERNER | + + + + + + + | Specimen | + + | Blood | + + + + + + + | Performing | Address | City/State/Zipcode | Phone Number | | Organization | | | | + + + + + | [facility] | [address] | [place] [address] | | | [facility] | | | | | LABORATORY CERNER | | | | + + + + + Lactic Acid, Arterial, Respiratory (06/11/2018 1636) + + + + + | Component | Value | Ref Range | Performed At | + + + + + | Lactate, Arterial | 1.0Comment: Performed | 0.5 - 1.6 mmol/L | [facility] | | | by [facility] [address], | | [facility] | | | [place] [address] | | [facility] | | |Performed by [facility] [address], [place] [address] | | LABORATORY | | | | | CERNER | + + + + + + + | Specimen | + + | Blood | + + + + + + + | Performing | Address | City/State/Zipcode | Phone Number | | Organization | | | | + + + + + | AM[facility] | [address] | [place] [address] | | | [facility] | [...] | [facility] | | Normalized | by [facility] [address], | | [facility] | | | [place] [address] | | [facility] | | |Performed by [facility] [address], [place] [address] | | LABORATORY | | | | | CERNER | + + + + + + + | Specimen | + + | Blood | + + + + + + + | Performing | Address | City/State/Zipcode | Phone Number | | Organization | | | | + + + + + | [facility] | [address] | [place] [address] | | | [facility] | | | | | LABORATORY CERNER | | | | + + + + + Glucose, Respiratory (06/11/2018 1636) + + + + + | Component | Value | Ref Range | Performed At | + + + + + | GLUCOSE | 122 (H)Comment: | 65 - 99 mg/dL | [facility] | | | Performed by [facility] [address] | | [facility] | | | [address], [place], [place] | | MEDICAL CENTER | | | [address] | | LABORATORY | | | | | CERNER | + + + + + + + | Specimen | + + | Blood | + + + + + + + | Performing | Address | City/State/Zipcode | Phone Number | | Organization | | | | + + + + + | AM[facility] | [address] | [place] [address] | | | [facility] | | | | | LABORATORY [...] + ----+ + | Comment | [id number] | | [facility] | | | | [...] % | [facility] | | | by [facility] [address], | | [facility] | | | [place] [address] | | MEDICAL CENTER | | |Performed by [facility] [address], [place] [address] | | LABORATORY | | | | | CERNER | + + + ----+ + + + | Specimen | + + | Blood - Artery | + + + + + + + | Performing | Address | City/State/Zipcode | Phone Number | | Organization | | | | + + + + + | AM[facility] | [address] | [place] [address] | | | [facility] | | | | | LABORATORY [...] | [facility] | | | Performed by [facility] [address] | | [facility] | | | [address] [place], [place] | | [facility] | | | [address] | | LABORATORY | | | | | JAMINNER | + + + + + + + | Specimen | + + | Blood | + + + + + + + | Performing | Address | City/State/Zipcode | Phone Number | | Organization | | | | + + + + + | AM[facility] | [address] | [place] [address] | | | [facility] | | | | | LABORATORY [...] [facility] | | | | | [facility] | | | | | LABORATORY | | | | | CERNER | + + + ----+ + | NA | 142Comment: Performed | 135 - 145 mmol/ L | [facility] | | | by [facility] [address], | | [facility] | | | [place] [address] | | [facility] | | |Performed by [facility] [address], [place] [address] | | LABORATORY | | | | | CERNER | + + + ----+ + + + | Specimen | + + | Blood | + + + + + + + | Performing | Address | City/State/Zipcode | Phone Number | | Organization | | | | + + + + + | [facility] | [address] | [place] [address] | | | [facility] | | | | | LABORATORY [...] | assay has been evaluated | | [facility] | | | for screening [...] [facility] | | | | | [facility] | | | | | LABORATORY [...] | | | | | seconds.Performed by [facility] | | | | | [address], | | | | | [place] [address] | | | + + + + + + + | Specimen | + + | Blood | + + + + + + + | Performing | Address | City/State/Zipcode | Phone Number | | Organization | | | | + + + + + | [facility] | [address] | [place] [address] | | | [facility] | | | | | [place] | | | | + + + + + Lactic Acid, Arterial, Surgery (06/11/2018 1450) + + + + + | Component | Value | Ref Range | Performed At | + + + + + | Lactate, Arterial | 2.0 (H)Comment: | 0.5 - 1.6 mmol/L | [facility] | | | Performed by [facility] [address] | | [facility] | | | [facility] [place], [place] | | [facility] | | | [id number] | | LABORATORY | | | | | ALTAGRACIA | + + + + + + + | Specimen | + + | Blood | + + + + + + + | Performing | Address | City/State/Zipcode | Phone Number | | Organization | | | | + + + + + | [facility] | [address] | [place] [address] | | | [facility] | | | | | LABORATORY [...] [facility] | | | | | [facility] | | | | | LABORATORY | | | | | CERN[facility] | + + + ----+ + | GLUCOSE | 108 (H) | 65 - 99 mg/dL | [facility] | | | | | [facility] | | | | | [facility] | | | | | LABORATORY | | | | | CERNER | + + + ----+ + | NA | 141Comment: Performed | 135 - 145 mmol/ L | [facility] | | | by [facility] [address] [facility] [address], | | [facility] | | | [place] [address] | | [facility] | | |Performed by [facility] [address], [place] [address] | | LABORATORY | | | | | CERNER | + + + ----+ + + + | Specimen | + + | Blood | + + + + + + + | Performing | Address | City/State/Zipcode | Phone Number | | Organization | | | | + + + + + | [facility] | [address] | [place] [address] | | | [facility] | | | | | LABORATORY [place]TAG[facility] | | | | + + + + + Lactic Acid, Arterial, Surgery (06/11/2018 1400) + + + + + | Component | Value | Ref Range | Performed At | + + + + + | Lactate, Arterial | 1.5Comment: Performed | 0.5 - 1.6 mmol/L | [facility] | | | by [place] [address] [address] [facility] [address], | | [facility] | | | [place] [address] | | [facility] | | |Performed by [facility] [address], [place] [address] | | LABORATORY | | | | | CERNER | + + + + + + + | Specimen | + + | Blood | + + + + + + + | Performing | Address | City/State/Zipcode | Phone Number | | Organization | | | | + + + + + | [facility] | [address] | [place] [address] | | | [facility] | | | | | LABORATORY [...] HEART | | | OR23 | | [facility] | | |Results Delivered to OR23 | [...] | [facility] | | | Performed by [facility] [address] | | [facility] | | | [address] [place] | | MEDICAL CENTER | | | [address] | | LABORATORY | | | | | CERNER | + + + + + + + | Specimen | + + | Blood | + + + + + + + | Performing | Address | City/State/Zipcode | Phone Number | | Organization | | | | + + + + + | AMILCAR CARDONA | [address] | [place] [address] | | | [facility] | | | | | LABORATORY CERNER | | | | + + + + + Lactic Acid, Arterial, Surgery (06/11/2018 1334) + + + + + | Component | Value | Ref Range | Performed At | + + + + + | Lactate, Arterial | 1.2Comment: Performed | 0.5 - 1.6 mmol/L | [facility] | | | by [facility] [address], | | [facility] | | | [place], [place] | | MEDICAL CENTER | | |Performed by [address], [place], [place] | | LABORATORY | | | | | CERNER | + + + + + + + | Specimen | + + | Blood | + + + + + + + | Performing | Address | City/State/Zipcode | Phone Number | | Organization | | | | + + + + + | [facility] | [address] | [place], [place] | | | [facility]ICAL [facility] [...] CENT ER | | |Results Delivered to Kuwlinder Sharma ORCesar | | LABORATORY | | [...] | [facility] | | | Performed by [facility] [address] | | [facility] | | | [address] [place] | | MEDICAL CENT ER | | | [address] | | LABORATORY | | | | | CERNER | + + + + ----+ + + | Specimen | + + | Blood | + + + + + + + | Performing | Address | City/State/Zipcode | Phone Number | | Organization | | | | + + + + + | AMILCAR CARDONA | [address] | [place] [address] | | | [facility] | | | | | LABORATORY ALTAGRACIA | | | | + + + + + ECHO Transesophageal (CHIQUITA) (06/11/2018 1305) + -----+ + | Narrative | Performed At | + -----+ + | | [facility] | | Transesophageal Echocardiography Report (CHIQUITA) Demographics Patient | | | Name [facility] Room | | | Number Therese LACKEY | | | Patient Number [id number] Date of | | | Study 06/11/2018 Visit Number [id number] | | | Accession | | | [id number] Interpreting Sharad Richard | | | Number | | | Physician Date of 1955 Referring | | | Physician ELEANOR MARTIN Age 62 | | | year(s) 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 Visible portions of ascending aorta and arch normal. 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 Pulmonary artery | | | [id number]. Normal pericardium. No pericardial fluid. No pleural [...] All pre | | | and post-CPB CHQIUITA findings discussed with Dr. Webster. 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 Trace TR.7. Pulmonic valve normal Trace MD.8. Visible portions | | of ascending aorta and arch normal. 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 Pulmonary artery [id number]. Normal pericardium. No pericardial fluid. No pleural [...] mmol/L | [facility] | | | by [facility] [address], | | [facility] | | | [place] [address] | | MEDICAL CENTER | | |Performed by [facility] [address], [place] [address] | | LABORATORY | | | | | CERNER | + + + + + + + | Specimen | + + | Blood | + + + + + + + | Performing | Address | City/State/Zipcode | Phone Number | | Organization | | | | + + + + + | AMILCAR CARDONA | [address] | [place] [address] | | | [facility] | | | | | LABORATORY [...] AMILCAR | | Normalized | Performed by [facility] [address] | | [facility] | | | [address], [place] | | [facility] | | | [address] | | LABORATORY | | | | | ALTAGRACIA | + + + + + + + | Specimen | + + | Blood | + + + + + + + | Performing | Address | City/State/Zipcode | Phone Number | | Organization | | | | + + + + + | [facility] | [address] | [place] [address] | | | [facility] | | | | | LABORATORY ALTAGRACIA | | | | + + + + + Lactic Acid, Arterial, Surgery (06/11/2018 1035) + + + + + | Component | Value | Ref Range | Performed At | + + + + + | Lactate, Arterial | 0.9Comment: Performed | 0.5 - 1.6 mmol/L | [facility] | | | by [facility] [address], | | [facility] | | | [place] [address] | | [facility] | | |Performed by [facility] [address], [place] [address] | | LABORATORY | | | | | CERNER | + + + + + + + | Specimen | + + | Blood | + + + + + + + | Performing | Address | City/State/Zipcode | Phone Number | | Organization | | | | + + + + + | AMILCAR CARDONA | [address] | [place] [address] | | | [facility] | | | | | LABORATORY [...] | AMILCAR | | | Performed by [facility] [address] | | [facility] | | | [address], [place], [place] | | MEDICAL CENTER | | | [address] | | LABORATORY | | | | | CERNER | + + + + + + + | Specimen | + + | Blood | + + + + + + + | Performing | Address | City/State/Zipcode | Phone Number | | Organization | | | | + + + + + | [facility] | [address] | [place] [address] | | | [facility] | | | | | LABORATORY CERNER | | | | + + + + + Type and Screen (06/11/2018512) + + + + + | Component | Value | Ref Range | Performed At | + + + + + | Antibody Screen | Positive | | [facility] | | | | | [facility] [facility] | | | | | [facility] | | | | | [facility] | + + + + + | ABO | O | | [facility] | | | | | [facility] | | | | | [facility] | | | | | CENTER | + + + + + | Rh Type | Negative | | [facility] | | | | | [facility] | | | | | [facility] | | | | | CENTER | + + + + + + + | Specimen | + + | Blood | + + + + + | Narrative | Performed At | + + + | Specimen Expiration Date: [id number] | [facility] | | | [facility] | | | [facility] | | | [facility] C[facility] | + + + + + + + + | Performing | Address | City/State/Zipcode | Phone Number | | Organization | | | | + + + + + | [facility] | [address] | [place] [address] | [phone] | | [facility] | | | | | [facility] [...] | [facility] | | | Performed by [facility] [address] | | [facility] | | | [address] [place], [place] | | [facility] | | | [address] | | LABORATORY | | | | | JAMINNER | + + + + + + + | Specimen | + + | Blood | + + + + + + + | Performing | Address | City/State/Zipcode | Phone Number | | Organization | | | | + + + + + | [facility] | [address] | [place] [address] | | | [facility]ART [facility]ICAL [facility]ENTER | [...] | CERNER | | | 3.5Performed by [facility] [address] | | | | | [address], [place] | | | | | [address] | | | + + + + + + + | Specimen | + + | Blood | + + + + + + + | Performing | Address | City/State/Zipcode | Phone Number | | Organization | | | | + + + + + | [facility] | [address] | [place] [address] | | | [facility] | | | | | [...] | [facility] | | | Performed by [facility] [address] | | [facility] | | | [place] | | MEDICAL CENTER | | | [address] | | LABORATORY | | | | | ALTAGRACIA | + + + + + + + | Specimen | + + | Blood | + + + + + + + | Performing | Address | City/State/Zipcode | Phone Number | | Organization | | | | + + + + + | AMILCAR CARDONA | [address] | [place] [address] | | | [facility] | | | | | LABORATORY [...] by | | LABORATORY | | | [facility] [address], | | CERNER | | | [place] [address] | | | + + + + + + + | Specimen | + + | Blood | + + + + + + + | Performing | Address | City/State/Zipcode | Phone Number | | Organization | | | | + + + + + | YARELISCARLOS CARDONA | [address] | [place] [address] | | | [facility] | | | | | LABORATORY [...] | | | | | seconds.Performed by [facility] | | | | | [address], | | | | | [place] [address] | | | + + + + + + + | Specimen | + + | Blood | + + + + + + + | Performing | Address | City/State/Zipcode | Phone Number | | Organization | | | | + + + + + | AMILCAR CARDONA | [address] | [place] [address] | | | [facility] | | | | | RIVERA [...] | [facility] | | | by [facility] [address], | | [facility] | | | [place], [place] | | [facility] | | |Performed by [facility] [address], [place], [place] | | LABORATO RY | | [...] CARDONA | [address] | [place], [place] | | | [facility] | | | | | LABORATORY [...] + + + + + | Specific [place] | 1.010 | 1.001 - 1.030 | [...] [facility] | | | | | [facility] | | | | | LABORATORY | | | | | CERNER | + + + + + | URINE SOURCE | Clean catchComment: | | [facility] | | | Performed by [facility] [address] | | [facility] | | | [address] [place] | | [facility] | | | [address] | | LABORATORY | | | | [...] + + | AMILCAR MATAMOROS | [address] | [place] [address] | | | [facility] | | | | | LABORATORY CERNER | | | | + + + + + POC Glucose (06/10/20182253) + + + + + | Component | Value | Ref Range | Performed At | + + + + + | Glucose, POC | 129 (H)Comment: | 65 - 99 mg/dL | [facility] | | | Performed by [facility] [address] | | [facility] | | | [address], [place] | | [facility] | | | [address] | | LABORATORY | | | | | CERNER | + + + + + + + | Specimen | + + | Blood | + + + + + + + | Performing | Address | City/State/Zipcode | Phone Number | | Organization | | | | + + + + + | AMILCAR CARDONA | [address] | [place] [address] | | | [facility] | | | | | RIVERA [...] | | | | | seconds.Performed by [facility] | | | | | [address], | | | | | [place] [address] | | | + + + + + + + | Specimen | + + | Blood | + + + + + + + | Performing | Address | City/State/Zipcode | Phone Number | | Organization | | | | + + + + + | AMILCAR SACRFAUSTO | [address] | [place] [address] | | | [facility] | | | | | LABORATORY [...] HEART | | | kidney | | [facility] | | | function.Performed by | | LABORATORY | | | [facility] [address], | | [place] | | | [place] [address] | | | + + + + + + + | Specimen | + + | Blood | + + + + + + + | Performing | Address | City/State/Zipcode | Phone Number | | Organization | | | | + + + + + | AMILCAR CARDONA | [address] | [place] [address] | | | [facility]ENTER | [...] | CERNER | | | 3.5Performed by [facility] [address] | | | | | [place] | | | | | [address] | | | + + + + + + + | Specimen | + + | Blood | + + + + + + + | Performing | Address | City/State/Zipcode | Phone Number | | Organization | | | | + + + + + | AMILCAR CARDONA | [address] | [place] [address] | | | [facility] | | | | | R[place] | | | | + + + + + POC Glucose (06/10/2018 1623) + + + + + | Component | Value | Ref Range | Performed At | + + + + + | Glucose, POC | 113 (H)Comment: | 65 - 99 mg/dL | [facility] | | | Performed by [facility] [address] | | [facility] | | | [place] | | [facility] | | | [address] | | LABORATORY | | | | | CERNER | + + + + + + + | Specimen | + + | Blood | + + + + + + + | Performing | Address | City/State/Zipcode | Phone Number | | Organization | | | | + + + + + | [facility] | [address] | [place] [address] | | | [facility] | [...] [facility] | | | | | [facility] | | | | | LABORATORY | | | | | CERNER | + + + + + | Hepatitis C Ab | >11.0 (H)Comment: | 0.0 - 0.9 | [facility] | | | | | [facility] | | | | | [facility] | | | Nega | | [...] Amplification test | | | | | ([id number]).Performed At: | | | | | [facility] [place] [address] | | | | | [facility] [address] | | | | | [place], [place] | | | | | [phone] Daniel | | | | | Riya MOJICA Ph:[phone] | | | + + + + + + + | Specimen | + + | Blood | + + + + + + + | Performing | Address | City/State/Zipcode | Phone Number | | Organization | | | | + + + + + | YARELISDEMIKarly BRENDAN | [address] | [place] [address] | | | [facility] | | | | | LABORATORY [...] | | | | | seconds.Performed by [facility] | | | | | [address], | | | | | [place] [address] | | | + + + + + + + | Specimen | + + | Blood | + + + + + + + | Performing | Address | City/State/Zipcode | Phone Number | | Organization | | | | + + + + + | AMILCAR CARDONA | [address] | [place] [address] | | | [facility] | | | | | [place] | | | | + + + + + ECG 12 lead (06/10/2018 1210) + + + | Narrative | Performed At | + + + | HEART RATE:71 | [facility] | | bpmRR Interval:845 msAtrial Rate:71 msP-R Interval:148 msP | [facility] | | Duration:152 msP Horizontal Afton:32 degP Front Afton:62 degQ Onset:512 | | | msQRSD Interval:110 msQT Interval:416 msQTcB:453 msQTcF:440 msQRS | | | Horizontal Afton:199 degQRS Afton:-83 degI-40 Horizontal Afton:77 degI-40 | | | Front Afton:-74 degT-40 Horizontal Afton:242 degT-40 Front Afton:216 | | | degT Horizontal Afton:84 degT Wave Afton:69 degS-T Horizontal Afton:97 | | | degS-T Front Afton:107 degSeverity:- ABNORMAL ECG -INTERP:SINUS | | | RHYTHMINTERP:NONSPECIFIC IVCD WITH LADINTERP:INFERIOR INFARCT, | | | OLDElectronically signed by: ELIZABETH CAMPBELL 06-12-2018 11:24:19 | | |QTcB:453 ms | | |QTcF:440 ms | | |QRS Horizontal Afton:199 deg | | |QRS Afton:-83 deg | | |I-40 Horizontal Afton:77 deg | | |I-40 Front Afton:-74 deg | | |T-40 Horizontal Afton:242 deg | | |T-40 Front Afton:216 deg | | |T Horizontal Afton:84 deg | | |T Wave Afton:69 deg | | |S-T Horizontal Afton:97 deg | | |S-T Front Afton:107 deg | | |Severity:- ABNORMAL ECG - [...] + + | SARITHA REY | [address] | [place] [address] | [phone] | + + + + + Pulmonary [...] | | | | | seconds.Performed by [facility] | | | | | [address], | | | | | [place] [address] | | | + + + + + + + | Specimen | + + | Blood | + + + + + + + | Performing | Address | City/State/Zipcode | Phone Number | | Organization | | | | + + + + + | AMILCAR CARDONA | [address] | [place] [address] | | | [facility] | | | | | LABORATORY [...] [facility] | | | | | [facility] | | | | | LABORATORY | | | | | CERNER | + + + + + | Hepatitis B Core Ab, | Positive (A) | Negative | [facility] | | Total | | | [facility] | | | | | [facility] | | | | | LABORATORY | | | | | CERNER | + + + + + | Hepatitis C Ab | >11.0 (H)Comment: | 0.0 - 0.9 | [facility] | | | | | [facility] | | | | | [facility] | | | [place] | [...] Amplification test | | | | | ([id number]).Performed At: | | | | | [facility] | | | | | [address] | | | | | [place], [place] | | | | | [phone] Daniel | | | | | L Ph:[phone] | | | + + + + + | HEP A TOTAL AB | Positive (A) | Negative | [facility] | | | | | [facility] | | | | | [facility] | | | | | LABORATORY | | | | | CERNER | + + + + + | Hepatitis B Surface | ReactiveComment: | | [facility] | | Antibody Qual | | | [facility] | | | Non Reactive: | | [facility] | | | Inconsistent with [...] + | AMILCAR CARDONA | [address] | [place] [address] | | | [facility] | | | | | LABORATORY [...] less than 7% as the | | [facility] | | | goal for diabetic | | LABORATORY | | | therapy. | | CERNER | + + + + + | Estimated Average | 111Comment: The ADA | 65 - 154 mg/dL | [place] | | Glucose | considers an Estimated [...] | | | | | formula.Performed by [facility] | | | | | [address], | | | | | [place] [address] | | | + + + + + + + | Specimen | + + | Blood | + + + + + + + | Performing | Address | City/State/Zipcode | Phone Number | | Organization | | | | + + + + + | AMILCAR CARD[facility] | [address] | [place] [address] | | | [facility] | | | | | LABORATORY CERNER | | | | + + + + + ABO Rh (06/10/201849) + + + + + | Component | Value | Ref Range | Performed At | + + + + + | ABO | O | | [facility] | | | | | [facility] | | | | | [facility] | | | | | [facility] | + + + + + | Rh Type | Negative | | [facility] | | | | | [facility] | | | | | [facility] | | | | | CENTER | + + + + + + + + | Narrative | Performed At | + + + | Specimen Expiration Date: [id number] | [facility] | | | [facility] | | | [facility] | | | [facility] | + + + + + + + + | Performing | Address | City/State/Zipcode | Phone Number | | Organization | | | | + + + + + | [facility] | [address] | [place] [address] | [phone] | | [facility] | | | | | [facility] | | | | | [facility] | | | | + + + + + Antibody Screen (06/10/2018 0649) + + + + + | Component | Value | Ref Range | Performed At | + + + + + | Antibody Screen | Positive | | [facility] | | | | | [facility] | | | | | [facility] | | | | | CENTER | + + + + + + + + | Narrative | Performed At | + + + | Specimen Expiration Date: [id number] | [facility] | | | [facility] | | | [facility] | | | [facility] | + + + + + + + + | Performing | Address | City/State/Zipcode | Phone Number | | Organization | | | | + + + + + | [facility] | [address] | [place] [address] | [phone] | | [facility] | | | | | [facility] | | | | [facility] | | | | + + + + + Antibody identification (06/10/20186) + + + + + | Component | Value | Ref Range | Performed At | + + + + + | Antibody ID | Anti-Jka | | [facility] | | | | | [facility] | | | | | [facility] | | | | | [facility]ENTER | + + + + + + + + | Narrative | Performed At | + + + | Specimen Expiration Date: [id number] | [facility] | | | [facility] [facility] | | | [facility] | | | [facility] | + + + + + + + + | Performing | Address | City/State/Zipcode | Phone Number | | Organization | | | | + + + + + | [facility] | [address] | [place] [address] | [phone] | | [facility] | | | | | [facility] | | | | | [facility] | | | | + + + + + Type and Screen (06/10/201845) + + + + + | Component | Value | Ref Range | Performed At | + + + + + | ABO | O | | [facility] | | | | | [facility] | | | | | [facility] | | | | | [facility] | + + + + + | Rh Type | Negative | | [facility] | | | | | [facility] | | | | | [facility] | | | | | [facility]ENTER | + + + + + | Antibody Screen | Positive | | [facility] | | | | | [facility] | | | | | [facility] | | | | | [facility]ENTER | + + + + + + + | Specimen | + + | Blood | + + + + + | Narrative | Performed At | + + + | Specimen Expiration Date: [id number] | [facility] | | | [facility] [facility] | | | [facility] | | | [facility] | + + + + + + + + | Performing | Address | City/State/Zipcode | Phone Number | | Organization | | | | + + + + + | [facility] | [address] | [place] [address] | [phone] | | [place] | | | | | [facility] | | | | | CENTER [...] | | | | | seconds.Performed by [facility] | | | | | [address], | | | | | [place] [address] | | | + + + + + + + | Specimen | + + | Blood | + + + + + + + | Performing | Address | City/State/Zipcode | Phone Number | | Organization | | | | + + + + + | AMILCAR CARD[facility] | [address] | [place] [address] | | | [facility] | | | | | RIVERA [...] | proximal 40% LAD, 95% ostial septal memorial designer, 70% mid and distal LAD, 100% [...] | | | LAD, 95% ostial septal memorial designer, 70% mid and distal LAD, 100% [...] lateral castillo from | | | prior [place]. 4. Mild destinee infarct ischemia. LARGE SEVERE inferior and | | | Lateral [place]. 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 | | Duration:176 msP Horizontal Afton:19 degP Front Afton:70 degQ Onset:512 | | | msQRSD Interval:110 msQT Interval:444 msQTcB:480 msQTcF:467 msQRS | | | Horizontal Afton:157 degQRS Afton:-77 degI-40 Horizontal Afton:75 degI-40 | | | Front Afton:-59 degT-40 Horizontal Afton:240 degT-40 Front Afton:267 | | | degT Horizontal Afton:91 degT Wave Afton:68 degS-T Horizontal Afton:98 | | | degS-T Front Afton:103 degSeverity:- ABNORMAL ECG -INTERP:SINUS | | | RHYTHMINTERP:NONSPECIFIC IVCD WITH LADINTERP:INFERIOR INFARCT, | | | OLDElectronically signed by: ELIZABETH CAMPBELL 06-12-2018 11:25:24 | | |QTcB:480 ms | | |QTcF:467 ms | | |QRS Horizontal Afton:157 deg | | |QRS Afton:-77 deg | | |I-40 Horizontal Afton:75 deg | | |I-40 Front Afton:-59 deg | | |T-40 Horizontal Afton:240 deg | | |T-40 Front Afton:267 deg | | |T Horizontal Afton:91 deg | | |T Wave Afton:68 deg | | |S-T Horizontal Afton:98 deg | | |S-T Front Afton:103 deg | | |Severity:- ABNORMAL ECG - [...] + + + | SARITHA REY | [address] [place] [address]. | [place] [address] | [phone] | + + + + + Magnesium (06/09/2018 0307) + + + +--------- --------+ | Component | Value | Ref Range | Performe d At | + + + +--------- --------+ | Magnesium | 2.1Comment: Performed | 1.7 - 2.4 mg/dL | [facility] | | | by [facility] [address], | | [facility] | | | [place] [address] | | [facility] | | |Performed by [facility] [address], [place] [address] | | LABORATO RY | | | | | CERNER | + + + +--------- --------+ + + | Specimen | + + | Blood | + + + + + + + | Performing | Address | City/State/Zipcode | Phone Number | | Organization | | | | + + + + + | [facility] | [address] | [place] [address] | | | [facility] | | | | | [...] L | [facility] | | | by [facility] [address], | | [facility] | | | [place] [address] | | [facility] | | |Performed by [facility] [address], [place], [place] | | LABORATORY | | | | | CERNER | + + + --+ + + + | Specimen | + + | Blood | + + + + + + + | Performing | Address | City/State/Zipcode | Phone Number | | Organization | | | | + + + + + | [facility] | [address] | [place], [place] | | | [facility] [...] by | | LABORATORY | | | [facility] [address], | | [place] | | | [place] [address] | | | + + + + + + + | Specimen | + + | Blood | + + + + + + + | Performing | Address | City/State/Zipcode | Phone Number | | Organization | | | | + + + + + | [facility] | [address] | [place] [address] | | | [facility] | | | | | [facility] [...] | | | | | TroponinPerformed by [facility] | | | | | [address], | | | | | [place] [address] | | | + + + + + + + | Specimen | + + | Blood | + + + + + + + | Performing | Address | City/State/Zipcode | Phone Number | | Organization | | | | + + + + + | [facility] | [address] | [place] [address] | | | [facility] | | | | | LABORATORY CERNER | | | | + + + + + ECG 12 lead (06/08/2018 0430) + + + | Narrative | Performed At | + + + | HEART RATE:94 | [facility] | | bpmRR Interval:638 msAtrial Rate:95 msP-R Interval:148 msP | [facility] | | Duration:200 msP Horizontal Afton:19 degP Front Afton:58 degQ Onset:512 | | | msQRSD Interval:110 msQT Interval:404 msQTcB:506 msQTcF:469 msQRS | | | Horizontal Afton:184 degQRS Afton:265 degI-40 Horizontal Afton:78 degI-40 | | | Front Afton:269 degT-40 Horizontal Afton:240 degT-40 Front Afton:259 | | | degT Horizontal Afton:77 degT Wave Afton:63 degS-T Horizontal Afton:83 | | | degS-T Front Afton:99 degSeverity:- ABNORMAL ECG -INTERP:SINUS | | | RHYTHMINTERP:NONSPECIFIC IVCD WITH LADINTERP:INFERIOR INFARCT, | | | OLDElectronically signed by: ELIZABETH CAMPBELL 06-12-2018 11:24:43 | | |QTcB:506 ms | | |QTcF:469 ms | | |QRS Horizontal Afton:184 deg | | |QRS Afton:265 deg | | |I-40 Horizontal Afton:78 deg | | |I-40 Front Afton:269 deg | | |T-40 Horizontal Afton:240 deg | | |T-40 Front Afton:259 deg | | |T Horizontal Afton:77 deg | | |T Wave Afton:63 deg | | |S-T Horizontal Afton:83 deg | | |S-T Front Afton:99 deg | | |Severity:- ABNORMAL ECG - [...] + + | [facility] | [address] | [place] [address] | [phone] | + + + + + Troponin [...] to and read back by | | [facility] | | | luis soto at [...] TroponinPerformed by | | | | | [facility] [address], | | | | | [place] [address] | | | + + + + + + + | Specimen | + + | Blood | + + + + + + + | Performing | Address | City/State/Zipcode | Phone Number | | Organization | | | | + + + + + | [facility] | [address] | [place] [address] | | | [facility] | | | | | [place] | | | | + + + + + Magnesium (06/08/2018315) + + + +--------- --------+ | Component | Value | Ref Range | Performe d At | + + + +--------- --------+ | Magnesium | 1.8Comment: Performed | 1.7 - 2.4 mg/dL | [facility] | | | by [facility] [address], | | [facility] | | | [place] [address] | | [facility] | | |Performed by [facility] [address], [place] [address] | | LABORATO RY | | | | | CERNER | + + + +--------- --------+ + + | Specimen | + + | Blood | + + + + + + + | Performing | Address | City/State/Zipcode | Phone Number | | Organization | | | | + + + + + | [facility] | [address] | [place] [address] | | | [facility] | | | | | LABORATORY [...] [facility] | | | | | [facility] | | | | [...] by | | LABORATORY | | | [facility] [address], | | [place] | | | [place] [address] | | | + + + + + + + | Specimen | + + | Blood | + + + + + + + | Performing | Address | City/State/Zipcode | Phone Number | | Organization | | | | + + + + + | [facility] | [address] | [place] [address] | | | [facility] | | | | | LABORATORY [...] | and read back by 6S | [facility] | | | MATTI Herrera at 1233 [...] | | | | | TroponinPerformed by [facility] | | | | | [address], | | | | | [place] [address] | | | + + + + + + + | Specimen | + + | Blood | + + + + + + + | Performing | Address | City/State/Zipcode | Phone Number | | Organization | | | | + + + + + | [facility] | [address] | [place] [address] | | | [facility] | | | | | LABORATORY [...] and read back by 6S | | [facility] | | | HECTOR Mcclain at [...] TroponinPerformed by | | | | | [facility] [address], | | | | | [place] [address] | | | + + + + + + + | Specimen | + + | Blood | + + + + + + + | Performing | Address | City/State/Zipcode | Phone Number | | Organization | | | | + + + + + | [facility] | [address] | [place] [address] | | | [facility] | | | | | LABORATORY [...] | [facility] | | | Performed by [facility] [address] | | [facility] | | | [address] [place], [place] | | MEDICAL CENTER | | | [address] | | LABORATORY | | | | | CERNER | + + + + + + + | Specimen | + + | Blood | + + + + + + + | Performing | Address | City/State/Zipcode | Phone Number | | Organization | | | | + + + + + | [facility] | [address] | [place] [address] | | | [facility] | | | | | [place]IVER[place] [...] [facility] | | | | | [facility] | | | | | LABORATORY | | | | | CERNER | + + + + + | U Tox Comment | See CommentComment: | | [facility] | | | This entire battery is | | [facility] | | | for screening purposes | | [facility] | | | only. Results are [...] | | | | | battery.Performed by [facility] | | | | | [address], | | | | | [place] [address] | | | + + + + + + + | Specimen | + + | Urine | + + + + + + + | Performing | Address | City/State/Zipcode | Phone Number | | Organization | | | | + + + + + | PROVIDED[facility] | [address] | [place] [address] | | | [facility] | | | | | LABORATORY [...] | | | | | [place].Performed by [facility] [address] | | | | | [address] [place] | | | | | [address] | | | + + + + [...] | [place] | | | [facility] | | | | | LABORATORY CERNER | | | | + + + + + Myoglobin (06/07/2018909) + + + +----- + | Component | Value | Ref Range | Perf ormed At | + + + +----- + | MYOGLOBIN, SERUM | 69Comment: Performed by | 0 - 69 ng/mL | [facility] | | | [facility] [address], | | [facility] | | | [place] | | [facility] | | |Performed by [facility] [address], [place] | | LABO RATORY | | | | | CERN ER | + + + +----- + + + | Specimen | + + | Blood | + + + + + + + | Performing | Address | City/State/Zipcode | Phone Number | | Organization | | | | + + + + + | [facility] | [address] | [place] [address] | | | [facility] | | | | | [place] | | | | + + + + + Lipase (06/07/201810) + + + + ----+ | Component | Value | Ref Range | Performed At | + + + + ----+ | Lipase | 32Comment: Performed by | 11 - 82 U/L | [facility] | | | [facility] [address], | | [facility] | | | [place] [address] | | MEDICAL CENT ER | | |Performed by [facility] [address], [place] [address] | | LABORATORY | | | | | CERNER | + + + + ----+ + + | Specimen | + + | Blood | + + + + + + + | Performing | Address | City/State/Zipcode | Phone Number | | Organization | | | | + + + + + | [facility] | [address] | [place] [address] | | | HEART [facility] [...] by | | LABORATORY | | | [facility] [address], | | [place] | | | [place] [address] | | | + + + + + + + | Specimen | + + | Blood | + + + + + + + | Performing | Address | City/State/Zipcode | Phone Number | | Organization | | | | + + + + + | [facility] | [address] | [place] [address] | | | [facility] | | | | | [place]IVER[place] [...] L | [facility] | | | by [facility] [address], | | [facility] | | | [place] [address] | | MEDICAL CENTER | | |Performed by [facility] [address], [place] [address] | | LABORATORY | | | | | CERNER | + + + --+ + + + | Specimen | + + | Blood | + + + + + + + | Performing | Address | City/State/Zipcode | Phone Number | | Organization | | | | + + + + + | [facility]DE[facility] | [address] | [place] [address] | | | [facility] | | | | | LABORATORY [place] | | | | + + + + + Extra Hold Tube(s) (06/07/2018909) + + + + ---+ | Component | Value | Ref Range | Performed At | + + + + ---+ | Extra Tube | DrawnComment: Performed | | [facility] | | | by [facility] [address], | | [facility] | | | [place] [address] | | MEDICAL CENTE R | | |Performed by [facility] [address] [place] [address] | | LABORATORY | | | | | [place] | + + + + ---+ + + | Specimen | + + | Blood | + + + + + + + | Performing | Address | City/State/Zipcode | Phone Number | | Organization | | | | + + + + + | [facility] | [address] | [place] [address] | | | [facility] | | | | | LABORATORY [place] | | | | + + + + + CK Total (06/07/2018 0903) + + + + -----+ | Component | Value | Ref Range | Performed A t | + + + + -----+ | CK TOTAL | 84Comment: Performed by | 30 - 240 U/L | Y[facility]IS[facility]CE | | | [facility] [address], | | [facility] | | | [place] [address] | | [address] | | |Performed by [facility] [address], [place] [address] | | LABORATORY | | | | | CERNER | + + + + -----+ + + | Specimen | + + | Blood | + + + + + + + | Performing | Address | City/State/Zipcode | Phone Number | | Organization | | | | + + + + + | [facility] | [address] | [place] [address] | | | [facility] | | | | | LABORATORY [...] + + + + + | Specific [place] | 1.020 | 1.001 - 1.030 | [...] [facility] | | | | | [facility] | | | | | LABORATORY | | | | | CERNER | + + + + + | MUCUS UA | None PresentComment: | | [facility] | | | Less than 2 mL | | [facility] | | | submitted. [facility] | | [facility] | | | c done on [...] | [facility] | | | Performed by [facility] [address] | | [facility] | | | [address] [place] | | [facility] | | | [address] | | LABORATORY | | | | [...] + | [facility] | [address] | [place] [address] | | | [facility] | | | | | LABORATORY [...] | | | | First dose on [facility] 06/11/18 at 2100 | | PDT | [...] | | | | Starting [facility] 06/11/18 at 1635, | | | [...] | | | | | Constipation, Starting [facility] 06/11/18 | | PDT | | | [...]
--- OUTSIDE RECORDS SUMMARY | ~2018-07-05 | XMS | Encounter Summary ---
Demographics + + + | Address | [address] | | | [place] [address] | + + + | Home Phone [...] | Author | [facility] | | | and Ankitana | + + + | Organization | [facility] | [...] Providers + +------+ + | Care Manager Heavy Equipment Name | Role | Phone | + [...] Question | | 2018 | | CARDIOLOGY [facility] | MD [address], | | | | | [address] | [address] [place] | | | | | [place] [address] [place] | [address] | | | | | [address] | | | | | | [phone] | | | +--------+ + + + [...] Cardiology | Kylie Shields, | | | 2018 | Visit | | GABRIEL [address] | | | | | | [place], | | | | | | [place] [address] | | | | | | [phone] | | | | | | | | +--------+---------+ + + + as of this encounter Visit Diagnoses Not on filein this encounter"
--- OUTSIDE RECORDS SUMMARY | ~2018-07-05 | XMS | Encounter Summary ---
Demographics + + + | Address | [address] | | | [place] [address] | + + + | Home Phone | | + + + | Preferred Language | Unknown | + + + | Marital Status | | + + + | Hindu Affiliation | 1041 | + + + | Race | Unknown | + + + | Ethnic Group | Unknown | + + + Author + + + | Author | [facility] | | | and Ankitana | + + + | Organization | [facility] | | | [...] Providers + +------+ + | Care Junior Bookkeeper Name | Role | Phone | + +------+ + | Yolanda Lee | PCP | | + +------+ + Encounter Details +--------+ + + + + | Date | Type | Department | Care Team | Description | +--------+ + + + + | 06/09/ | Procedure | [facility] | | | | 2018 | Pass | [facility] | | | | | | INTRA OP [address] | | | | | | [place] | | | | | | [address] | | | | | | [phone] | | | +--------+ + + + [...] | | | | | | [place] [address] | | | | | | [phone] | | | | | | | | +--------+---------+ + + + as of this encounter Visit Diagnoses Not on filein this encounter"
--- OUTSIDE RECORDS SUMMARY | ~2018-07-05 | XMS | Encounter Summary ---
Demographics + + + | Address | [address] | | | [place] [address] | + + + | Home Phone [...] | Author | [facility] | | | and Ankitana | + + + | Organization | [facility] | | | and Ankitana | [...] Team Providers + +------+ + | Care Waiter And Cashier Name | Role | Phone | + [...] Question | | 2018 | | CARDIOLOGY [facility] | MD [address], | | | | | [address] | [address] [place] | | | | | [place] [address] [place] | [id number] | | | | | [address] | | | | | | [phone] | | | +--------+ + + + [...] | | | | | | [place] [address] | | | | | | [phone] | | | | | | | | +--------+---------+ + + + as of this encounter Visit Diagnoses Not on filein this encounter"
--- OUTSIDE RECORDS SUMMARY | ~2018-07-05 | XMS | Encounter Summary ---
Demographics + + + | Address | [address] | | | [place] [address] | + + + | Home Phone [...] [facility] | | | and Ankitana | + + + | Organization | [facility] | | [...] Team Providers + +------+ + | Care Metallurgical Analyst Name | Role | Phone | [...] | | [place] | [place] | | | | | [address] | [address] | | | | | [phone] | [phone] | | | | | | | [...] Discharge Summaries Suresh Segovia RN - 06/15/2018 5044 PDTSALVATORE Greco saw the patient this 06/15/18 and c onfirmed discharge at 1200. ELÍAS Prince and ELÍAS Brown completed the discharge instructions. Th e patient will be getting their new RXs filled at home preferred pharmacy. Unable to fill pr escriptions before pharmacy closed. Pharmacist notified and gave patient number for [facility] to transfer medications in AM. Given night time pain medications prior to leaving. T he AVS was reviewed with patient and family with no pending questions or concerns. All belon gings were collected from the room and sent with the family. The pt is discharging home with family in [place]. New FWW sent with patient. No further questions and all teaching demonstr ated back to RN. Plan for d/c at 1800 when family arrives. Juancho Greco ARNP - 06/15/2018 1201 PDTFormatting of this note may be different from the original. [facility] Discharge [...] precauti ons. [facility] the [facility] and our social worker masters has confirmed that she is free to [...] and occupational therapy for post-op rehab. - [facility]. Disposition: Home with family. Patient was advised to call our office or their magento web developer with any questions. Follow-Up: Follow-up Information SALVATORE Ventura. Go on 06/23/2018. Specialty: Nurse Practitioner Why: Hospital follow up scheduled at 11:[address] Roa Contact information: [address] [facility] [address] Hemanth Webster MD. Schedule an appointment as soon as possible for a visit on 06/29/2018 . Specialty: Cardiothoracic Surgery Why: 11:30 AM Contact information: [address], [place] [address] [facility] [address] Schedule an appointment as soon as possible for a visit with [facility] [place] [facility]. Why: Please call to schedule your 1 month follow-up with cardiology. Contact information: [address] [place] [address] [facility] [address] Time spent on discharge planning: greater than 30 minutes CABG Checklist ACEI/ARB/ARNI prescribed: No - Hypotension Aspirin prescribed: Not addressed Beta mateus (evidence-based) prescribed: Yes Beta mateus prescribed: N/A - LV EF is less than 41% High intensity statin prescribed: Yes Referral to cardiac rehab: Yes Tobacco cessation counseling provided: Yes [facility] [address], [address] [place] [address] Portions of this chart may have been created with [employer] voice recognition software. Occasi onal wrong-word or [...] feeling more short of breath, please call [facility] at [phone]. 2. For problems or concerns with your incision or your chest, please call [facility]) at [phone]. After Coronary Artery Bypass Surgery When you [...] by medication, call your healthcare pr fuad. 6524-0051 [facility], [address] [place] [id number]. All rights reserve d. This information is [...] | | | | | ([facility]) | | | | | | [...] of this encounter Progress Notes Sherrie Sultana, TREASURY ASSOCIATE - 06/15/2018 1314 PDTSOCIAL WORK PLAN: Discharge with friend INTERVENTION: MD order to verify pt's disposition at discharge acknowledged. SW met with pt at bedside. Pt states she was brought to [facility] by [facility] but states she is no l onger in custody. No guards at the door. SW Patient Care Provider suggested SW contact [facility] to confirm. SW spoke with [facility] who confirms pt was released. SW spoke with pt regarding discharge plan. Pt plans to discharge to friend's home. SW available should further discharg e planning needs arise. Keith Harp MD - 06/15/2018 0803 PDTFormatting of this note may be different [...] Portions of this chart were created with [employer] voice recognition software. Occasional wro ng-word or "sound-alike" substitutions may have occurred due to the inherent limitations of voice recognition software. Please read the chart carefully and recognize, using context, w here those substitutions have occurred.Deonte Lee MD - 06/15/2018 0715 PDTFormattin g of this note may be different from the original. [facility] Pt. Name/Age/: Smitha Boggs Chance 62 y.o. 1955 Med. Record Number: [id number] Date of admission: 06/07/2018 POD # 4 Procedure: CABG X 3 Surgeon: Eleanor Subjective New complaints: poor sternal precautions. No c/o this morning. Acknowledges that came from [facility]. Not sure where she is going. [...] signed by: Hector Decker PA-C Cardiothoracic Surgery [facility] [address], [address] [place] [address] 06/15/2018 7:[address] [facility] Agree with detailed plan nicely outlined by Ashley Hamilton, TREASURY ASSOCIATE - 06/14/2018 1305 PDTSOCIAL WORK PLAN: TBD INTERVENTION: SW acknowledged order for [facility] to [facility]. [facility] per chart review and may have to go back there upon DC. SW will continue to follow for DC planning. Frandy Squires ARNP - 06/14/2018 0911 PDTBlood Glucose log reviewed. Patient is stabl e, with controlled blood glucose. Not requiring insulin Diabetes Service will sign off. Medication Reconciliation for diabetes medications has been completed. Please contact us at [phone] should the need arise. Thank you for [...] signed by: Rip Yao M.D. CardioThoracic Surgery [facility] 06/14/2018 9:23 [facility] Pt. Name/Age/: Smitha Fletcher 62 y.o. 1955 Med. Record Number: [id number] Date of admission: 06/07/2018 POD # 3 [...] the patient is going. Willl have social worker masters start arrangements. Problem List Patient Active Problem [...] signed by: Hector Decker PA-C Cardiothoracic Surgery [facility] [address] [place] [address] 06/14/2018 8:[address] [facility] [...] Portions of this chart were created with [employer] voice recognition software. Occasional wro ng-word or "sound-alike" substitutions may have occurred due to the inherent limitations of voice recognition software. Please read the chart carefully and recognize, using context, w here those substitutions have occurred.Frandy Squires, RESIDENTIAL WORKER - 06/13/2018 1437 PDTFormat ting of this [...] Per RN; she will be discharging from [facility] to [facility]. Assessment for glucose [...] by: SALVATORE Elias 06/13/2018 14:53 Diabetes team, [facility] [phone] Dave Bansal MD - 06/13/2018 1027 PDTFormatting [...] Portions of this chart were created with [employer] voice recognition software. Occasional wro ng-word or [...] signed by: Rip Yao M.D. CardioThoracic Surgery [facility] 06/13/2018 9:35 [facility] Pt. Name/Age/: Smitha Fletcher 62 y.o. 1955 Med. Record Number: [id number] Date of admission: 06/07/2018 POD #2 Procedure: [...] signed by: Hector Decker PA-C Cardiothoracic Surgery [facility] [address] [place] [address] 06/13/2018 8:[address] [facility] RayolloydKezia RN - 06/12/2018 1510 [...] Pt tolerated well. Plan transfer to floor.ShirleyYecenia, [facility] - 06/12/2018 1220 PDTSOCI AL WORK D/C PLAN: TBD INTERVENTION: Sw following for discharge planning. NEXT STEPS: Follow progress and therapy recommendations for discharge planning. ASSESSMENT/CHART REVIEW: Pt resides in [place]. She has Medicare coverage. COPD, is risk for readmission. If pt d oes not need placement she may benefit from home health post acute care. D/C TRANSPORT: TBD BARRIERS TO D/C: Medical stability CONTACTS: Hanna Navdeep: [phone] Bansal MD - 06/12/2018 1135 PDTFormatting of this note may be different from the original. [facility] PATIENT NAME: Smitha Fletcher : 1955: [...] 1.0 0.4 - 1.5 % Comment PS8 [id number] O2 Content, Arterial 15.7 15.0 - 23.0 [...] 22:29 Result Value Ref Range Product Code N8908Y01 UNIT # [id number] UNIT ABO O UNIT RH NEG CROSSMATCH INTERP Compatible Unit Status XM Blood Product Expiration Date and Time 332052210154 Product Blood Type Barcode 9500 Product Code D1667E46 UNIT # [id number] UNIT ABO O UNIT RH NEG CROSSMATCH INTERP Compatible Unit Status IS Blood Product Expiration Date and Time 134349603749 Product Blood Type Barcode 9500 Blood Gas, [...] 6:53 Result Value Ref Range Product Code B3531H76 UNIT # [id number] UNIT ABO O UNIT RH NEG CROSSMATCH INTERP Compatible Unit Status XM Blood Product Expiration Date and Time 755010306169 Product Blood Type Barcode 9500 POC Glucose [...] may b e different from the original. [facility] Hemanth [...] is a 62 y.o.femalewith hx substance abuse, FL and stent [place] [address] Brittnee Sandoval cardiology. [facility], complaining of severe 8-9/10 burning chest pain [...] - Single Lumen 06/10/18 1446 Right Forearm oumh-tlm-pprfch catheter sys tem 22 gauge;1 in length [...] - 99 mg/dL Final Comment: Performed by [facility] [address] [place] [address] All pertinent labs and imaging have been [...] this chart may have been created with [employer] voice recognition software. Occasi onal wrong-word or [...] TTE 06/08/18 showed LVEF of 45% with imyxpwwe-ha-ezlojc hypokinesis of lateral and inferio r castillo. [...] female with a pmhx of polysubstance abuse, CAD/FL s/p stent (2011), ischemic EFrEF (LVEF of 45%), HTN, bipolar disorder, nicotine dependence and incarce ration that [facility] from [facility] with severe left sided chest pain that [...] educationa l purposes. Please refer to attending/resident/physician certified anesthesiologist assistant/nurse practitioner note r egarding further patient care. Geno Carver, CHELSEA - 06/10/2018 0944 PDTAssessed for Pulmonary Rehab. Pt does not [...] TTE on 018 revealed LVEF = 45%, zgmniwsh-fd-kwwayp hypokinesis of lateral and inferior castillo, julian [...] Complaint: Chest pain Hospital Course: 62F PMH CAD/FL s/p stent (2011), ischemic HFrEF (LVEF = 45%), HTN, polysubstance abuse (met hamphetamine & marijuana), HCV, bipolar disorder, nicotine dependence and [facility] pres ented [facility] w/ severe, burning, substernal chest pain w/ radiation to left shoulder and associated nausea and vomiting. Workup in ED revealed troponin elevation (peak 0.311 this admission) and patient was admitt ed for further workup and management w/ cardiology. Labs in ED also revealed UDS positive fo r amphetamine, methamphetamine, benzodiazepines and opiates. TTE revealed LVEF = 45%, dieqqjnq-cg-fgfjnr hypokinesis of lateral and inferior castillo, mitr [...] Date of Service: 06/09/2018 PCP: [facility] Day: 0 Hospital Course: This is a 62 y.o.femalewith hx substance abuse, FL and stent [place] [address] Sandoval cardiology. [facility], complaining of severe 8-9/10 burning chest pain [...] hypokinesis present but the patient has has FL's in the past . Mild LVH. Stress [...] Single Lumen 06/09/18 0836 Left Distal Forearm bmiu-nwr-mjtafs cathet er system 20 gauge;1 1/4 in [...] this chart may have been created with [employer] voice recognition software. Occasi onal wrong-word or [...] TTE on 018 revealed LVEF = 45%, tmtppehy-im-mfwmhc hypokinesis of lateral and inferior castillo, julian [...] Complaint: Chest pain Hospital Course: 62F PMH CAD/FL s/p stent (2011), ischemic HFrEF (LVEF = 45%), HTN, polysubstance abuse (met hamphetamine & marijuana), HCV, bipolar disorder, nicotine dependence and incarceration pres ented from [facility] w/ severe, burning, substernal chest pain w/ radiation to left shoulder and associated nausea and vomiting. Workup in ED revealed troponin elevation (peak 0.311 this admission) and patient was admitt ed for further workup and management w/ cardiology. Labs in ED also revealed UDS positive fo r amphetamine, methamphetamine, benzodiazepines and opiates. TTE revealed LVEF = 45%, wgpwarzg-ej-kkijfc hypokinesis of lateral and inferior castillo, mitr [...] Date of Service: 06/08/2018 PCP: [facility]olanda [facility] Day: 0 Hospital Course: This is a 62 y.o. female with hx substance abuse, FL and stent [place] [address] Riya banuelos cardiology. [facility], complaining on sever -06/15 burning chest pain [...] hypokinesis present but the patient has has FL's in the past . Mild LVH. Stress [...] 06/07/18 1545 Right Anterior (palmar);Medial Forearm ove d-tos-xzbemi catheter system 20 gauge;other (see comments) 1 [...] this chart may have been created with [employer] voice recognition software. Occasi onal wrong-word or [...] Portions of this chart were created with [employer] voice recognition software. Occasional wro ng-word or "sound-alike" substitutions may have occurred due to the inherent limitations of voice recognition software. Please read the chart carefully and recognize, using context, w here those substitutions have occurred.Rhiannon Marcus RN - 06/07/2018 1509 [id number] ed to floor. Somunlent. Asking very [...] [address] | | | | | | [address] [place], | | | | | | [place] [address] | | | | | | [phone] | | | | | | | [...] | [facility] | | | Performed by [facility] [address] | | [facility] | | | [address] [place] | | MEDICAL CENTER | | | [address] | | LABORATORY | | | | | [place] | + + + + + + + | Specimen | + + | Blood | + + + + + + + | Performing | Address | City/State/Zipcode | Phone Number | | Organization | | | | + + + + + | [facility] | [address] | [place] [address] | | | [facility] | | | | | LABORATORY [...] HEART | | | kidney | | [facility] | | | function.Performed by | | LABORATORY | | | [facility] [address], | | [place] | | | [place] [address] | | | + + + + + + + | Specimen | + + | Blood | + + + + + + + | Performing | Address | City/State/Zipcode | Phone Number | | Organization | | | | + + + + + | [facility] | [address] | [place] [address] | | | [facility] | | | | | LABORATORY [...] + + + | Product Code | [id number] | | [facility] | | | | | [place] | | | | | [facility] | | | | | [facility] | + + + + + | UNIT # | [id number] | | [facility] | | | | | [place] | | | | | [facility] | | | | | [facility] | + + + + + | UNIT ABO | O | | [facility] | | | | | [place] | | | | | [facility] | | | | | CENTER | + + + + + | UNIT RH | NEG | | [facility] | | | | | [place] | | | | | [facility] | | | | | [facility]ENTER | + + + + + | CROSSMATCH INTERP | Compatible | | [facility] | | | | | [place] | | | | | [facility] | | | | | CENTER | + + + + + | Unit Status | RE | | [facility] | | | | | [place] | | | | | [facility] | | | | | [facility] | + + + + + | Blood Product | [id number] | | [facility] | | Expiration Date and | | | [place] | | Time | | | [facility] | | | | | CENTER | + + + + + | Product Blood Type | 9500 | | [facility] | | Barcode | | | [place] | | | | | [facility] | | | | | CENTER | + + + + + + + + | Narrative | Performed At | + + + | Specimen Expiration Date: [id number] | [facility] | | | [place] | | | [facility] | | [facility] | + + + + + + + + | Performing | Address | City/State/Zipcode | Phone Number | | Organization | | | | + + + + + | [facility] | [address] | [place] [address] | [phone] | | [place] | | | | | [facility] [...] | [place] | | | Performed by [facility] [address] | | [facility] | | | [address], [place] | | MEDICAL CENTER | | | [address] | | LABORATORY | | | | | [place] | + + + + + + + | Specimen | + + | Blood | + + + + + + + | Performing | Address | City/State/Zipcode | Phone Number | | Organization | | | | + + + + + | [facility] | [address] | [place] [address] | | | [facility] | | | | | LABORATORY [place] | | | | + + + + + Red Blood Cells (06/14/2018 1212) + + + + + | Component | Value | Ref Range | Performed At | + + + + + | Product Code | [id number] | | [facility] | | | | | [place] | | | | | [facility] | | | | | CENTER | + + + + + | UNIT # | [id number] | | [facility] | | | | | [place] | | | | | [facility] | | | | | CENTER | + + + + + | UNIT ABO | O | | [facility] | | | | | [place] | | | | | [facility] | | | | | CENTER | + + + + + | UNIT RH | NEG | | [facility] | | | | | [place] | | | | | [facility] | | | | | CENTER | + + + + + | CROSSMATCH INTERP | Compatible | | [facility] | | | | | [place] | | | | | [facility] | | | | | CENTER | + + + + + | Unit Status | IS | | [facility] | | | | | [place] | | | | | [facility] | | | | | CENTER | + + + + + | Blood Product | [id number] | | [facility] | | Expiration Date and | | | [place] | | Time | | | [facility] | | | | | CENTER | + + + + + | Product Blood Type | 9500 | | [facility] | | Barcode | | | [place] | | | | | [facility] | | | | | CENTER | + + + + + | Product Code | [id number] | | [facility] | | | | | [place] | | | | | [facility] | | | | | CENTER | + + + + + | UNIT # | [id number] | | [facility] | | | | | [place] | | | | | [facility] | | | | | CENTER | + + + + + | UNIT ABO | O | | [facility] | | | | | [place] | | | | | [facility] | | | | | CENTER | + + + + + | UNIT RH | NEG | | [facility] | | | | | [place] | | | | | [facility] | | | | | CENTER | + + + + + | CROSSMATCH INTERP | Compatible | | [facility] | | | | | [place] | | | | | [facility] | | | | | CENTER | + + + + + | Unit Status | IS | | [facility] | | | | | [place] | | | | | [facility] | | | | | CENTER | + + + + + | Blood Product | [id number] | | [facility] | | Expiration Date and | | | [place] | | Time | | | [facility] | | | | | CENTER | + + + + + | Product Blood Type | 9500 | | [facility] | | Barcode | | | [place] | | | | | [facility] | | | | | CENTER | + + + + + + + + | Narrative | Performed At | + + + | Specimen Expiration Date: [id number] | [facility] | | | [place] | | | [facility] | | | [facility] | + + + + + + + + | Performing | Address | City/State/Zipcode | Phone Number | | Organization | | | | + + + + + | [facility] | [address] | [place] [address] | [phone] | | [place] | | | | | [facility] [...] | [facility] | | | Performed by [facility] [address] | | [facility] | | | [facility] [place], [place] | | MEDICAL CENTER | | | [address] | | LABORATORY | | | | | [place] | + + + + + + + | Specimen | + + | Blood | + + + + + + + | Performing | Address | City/State/Zipcode | Phone Number | | Organization | | | | + + + + + | [facility] | [address] [place] [address]. | [place] [address] | | | [facility] | | | | | LABORATORY [place] | | | | + + + + + POC Glucose (06/14/2018 0231) + + + + + | Component | Value | Ref Range | Performed At | + + + + + | Glucose, POC | 148 (H)Comment: | 65 - 99 mg/dL | [facility] | | | Performed by [facility] [address] | | [facility] | | | [place] | | MEDICAL CENTER | | | [address] | | LABORATORY | | | | | [place] | + + + + + + + | Specimen | + + | Blood | + + + + + + + | Performing | Address | City/State/Zipcode | Phone Number | | Organization | | | | + + + + + | [facility] | [address] | [place] [address] | | | [facility] | | | | | LABORATORY [place] | | | | + + + + + POC Glucose (06/13/20182038) + + + + + | Component | Value | Ref Range | Performed At | + + + + + | Glucose, POC | 165 (H)Comment: | 65 - 99 mg/dL | [facility] | | | Performed by [facility] [address] | | [facility] | | | [address] [place] | | MEDICAL CENTER | | | [address] | | LABORATORY | | | | | [place] | + + + + + + + | Specimen | + + | Blood | + + + + + + + | Performing | Address | City/State/Zipcode | Phone Number | | Organization | | | | + + + + + | [facility] | [address] | [place] [address] | | | [facility] | | | | | LABORATORY [place] | | | | + + + + + POC Glucose (06/13/2018 1609) + + + + + | Component | Value | Ref Range | Performed At | + + + + + | Glucose, POC | 134 (H)Comment: | 65 - 99 mg/dL | [facility] | | | Performed by [facility] [address] | | [facility] | | | [facility], [place], [place] | | [facility] | | | [address] | | LABORATORY | | | | | [place] | + + + + + + + | Specimen | + + | Blood | + + + + + + + | Performing | Address | City/State/Zipcode | Phone Number | | Organization | | | | + + + + + | [facility] | [address] | [place] [address] | | | [facility] | | | | | LABORATORY [place] | | | | + + + + + POC Glucose (06/13/2018 1120) + + + + + | Component | Value | Ref Range | Performed At | + + + + + | Glucose, POC | 131 (H)Comment: | 65 - 99 mg/dL | [facility] | | | Performed by [facility] [address] | | [facility] | | | [place] | | [facility] | | | [address] | | LABORATORY | | | | | [place] | + + + + + + + | Specimen | + + | Blood | + + + + + + + | Performing | Address | City/State/Zipcode | Phone Number | | Organization | | | | + + + + + | [facility] | [address] | [place] [address] | | | [facility] | | | | | LABORATORY [place] | | | | + + + + + POC Glucose (06/13/2018624) + + + + + | Component | Value | Ref Range | Performed At | + + + + + | Glucose, POC | 159 (H)Comment: | 65 - 99 mg/dL | [facility] | | | Performed by [facility] [address] | | [facility] | | | [address], [place] | | MEDICAL CENTER | | | [address] | | LABORATORY | | | | | [place] | + + + + + + + | Specimen | + + | Blood | + + + + + + + | Performing | Address | City/State/Zipcode | Phone Number | | Organization | | | | + + + + + | [facility] | [address] | [place] [address] | | | [facility] | | | | | [place]A [...] | [facility] | | | Performed by [facility] [address] | | [facility] | | | [address] [place] | | [facility] | | | [address] | | LABORATORY | | | | | [place] | + + + + + + + | Specimen | + + | Blood | + + + + + + + | Performing | Address | City/State/Zipcode | Phone Number | | Organization | | | | + + + + + | [facility] | [address] | [place] [address] | | | [facility] | | | | | LABORATORY [...] [facility] | | | | | [facility] | | | | | LABORATORY | | | | | [place] | + + + + + | Estimated GFR | 52 (L)Comment: eGFR<60 | >=90 mL/min/1.73m2 | [facility] | | | consistent with impaired | | [facility] HEART | | | kidney | | MEDICAL CENTER | | | function.Performed by | | LABORATORY | | | [facility] [address], | | CERNER | | | [place] [address] | | | + + + + + + + | Specimen | + + | Blood | + + + + + + + | Performing | Address | City/State/Zipcode | Phone Number | | Organization | | | | + + + + + | PROVIDEDEMIE [facility]CR | [address] | [place] [address] | | | [facility] | | | | | LABORATORY CERNER | | | | + + + + + POC Glucose (06/13/20182) + + + + + | Component | Value | Ref Range | Performed At | + + + + + | Glucose, POC | 152 (H)Comment: | 65 - 99 mg/dL | [facility] | | | Performed by [facility] [address] | | [facility] | | | [address], [place] | | MEDICAL CENTER | | | [address] | | LABORATORY | | | | | CERNER | + + + + + + + | Specimen | + + | Blood | + + + + + + + | Performing | Address | City/State/Zipcode | Phone Number | | Organization | | | | + + + + + | [facility] | [address] | [place] [address] | | | [facility] | | | | | LABORATORY CERNER | | | | + + + + + POC Glucose (06/12/2018 2200) + + + + + | Component | Value | Ref Range | Performed At | + + + + + | Glucose, POC | 172 (H)Comment: | 65 - 99 mg/dL | [facility] | | | Performed by [facility] [address] | | [facility] | | | [address], [place] | | MEDICAL CENTER | | | [address] | | LABORATORY | | | | | [place]IA | + + + + + + + | Specimen | + + | Blood | + + + + + + + | Performing | Address | City/State/Zipcode | Phone Number | | Organization | | | | + + + + + | [facility] | [address] | [place] [address] | | | HEART [facility] | | | | | LABORATORY [place] | | | | + + + + + POC Glucose (06/12/2018 1641) + + + + + | Component | Value | Ref Range | Performed At | + + + + + | Glucose, POC | 132 (H)Comment: | 65 - 99 mg/dL | [facility] | | | Performed by [facility] [address] | | [facility] | | | [place] | | [facility] | | | [address] | | LABORATORY | | | | | CERNER | + + + + + + + | Specimen | + + | Blood | + + + + + + + | Performing | Address | City/State/Zipcode | Phone Number | | Organization | | | | + + + + + | [facility] | [address] | [place], [place] | | | [facility] | | | | | LABORATORY CERNER | | | | + + + + + POC Glucose (06/12/2018 1602) + + + + + | Component | Value | Ref Range | Performed At | + + + + + | Glucose, POC | 126 (H)Comment: | 65 - 99 mg/dL | [facility] | | | Performed by [facility] [address] | | [facility] | | | [address], [place] | | MEDICAL CENTER | | | [address] | | LABORATORY | | | | | CERNER | + + + + + + + | Specimen | + + | Blood | + + + + + + + | Performing | Address | City/State/Zipcode | Phone Number | | Organization | | | | + + + + + | YARELISDEMIKarly CARDONA | [address] | [place] [address] | | | [facility] | | | | | LABORATORY CERNER | | | | + + + + + POC Glucose (06/12/2018 1227) + + + + + | Component | Value | Ref Range | Performed At | + + + + + | Glucose, POC | 177 (H)Comment: | 65 - 99 mg/dL | [facility] | | | Performed by [facility] [address] | | [facility] | | | [address], [place], [place] | | MEDICAL CENTER | | | [address] | | LABORATORY | | | | | [place] | + + + + + + + | Specimen | + + | Blood | + + + + + + + | Performing | Address | City/State/Zipcode | Phone Number | | Organization | | | | + + + + + | PROVIDEDEMIE [facility]CRED | [address] | [place] [address] | | | [facility] | | | | | LABORATORY [place] | | | | + + + + + POC Glucose (06/12/201859) + + + +-------- ---------+ | Component | Value | Ref Range | Perform ed At | + + + +-------- ---------+ | Glucose, POC | 98Comment: Performed by | 65 - 99 mg/dL | [facility] | | | [facility] [address], | | [facility] | | | [place] [address] | | [facility] | | |Performed by [facility] [address], [place] [address] | | [facility] | | | | | CERNER | + + + +-------- ---------+ + + | Specimen | + + | Blood | + + + + + + + | Performing | Address | City/State/Zipcode | Phone Number | | Organization | | | | + + + + + | [facility] | [address] | [place] [address] | | | [facility] | | | | | LABORATORY CERNER | | | | + + + + + POC Glucose (06/12/2018 0600) + + + + + | Component | Value | Ref Range | Performed At | + + + + + | Glucose, POC | 100 (H)Comment: | 65 - 99 mg/dL | [facility] | | | Performed by [facility] [address] | | [facility] | | | [address], [place] | | MEDICAL CENTER | | | [address] | | LABORATORY | | | | | CERNER | + + + + + + + | Specimen | + + | Blood | + + + + + + + | Performing | Address | City/State/Zipcode | Phone Number | | Organization | | | | + + + + + | AMILCAR [facility] | [address] | [place] [address] | | | [facility] | | | | | LABORATORY CERNER | | | | + + + + + POC Glucose (06/12/2018 0508) + + + +-------- ---------+ | Component | Value | Ref Range | Perform ed At | + + + +-------- ---------+ | Glucose, POC | 87Comment: Performed by | 65 - 99 mg/dL | [facility] | | | [facility] [address], | | [facility] | | | [place] [address] | | [facility] | | |Performed by [facility] [address], [place] [address] | | LABORAT ORY | | | | | CERNER | + + + +-------- ---------+ + + | Specimen | + + | Blood | + + + + + + + | Performing | Address | City/State/Zipcode | Phone Number | | Organization | | | | + + + + + | AM[facility] | [address] | [place] [address] | | | [facility] | | | | | LABORATORY [...] [facility] | | | [place] [address] | | MEDICAL CENTER | | |Performed by [facility] [address], [place] [address] | | [facility] | | | | | [place] | + + + +-------- ---------+ + + | Specimen | + + | Blood | + + + + + + + | Performing | Address | City/State/Zipcode | Phone Number | | Organization | | | | + + + + + | AM[facility] | [address] | [place] [address] | | | [facility] | | | | | LABORATORY [place] | | | | + + + + + ECG 12 lead (06/12/2018 0312) + + + | Narrative | Performed At | + + + | HEART RATE:60 | [facility] | | bpmRR Interval:1000 msAtrial Rate:61 msP-R Interval:176 msP | [facility] | | Duration:184 msP Horizontal [place]:5 degP Front [place]:55 degQ Onset:508 | | | msQRSD Interval:104 msQT Interval:452 msQTcB:452 msQTcF:452 msQRS | | | Horizontal [place]:129 degQRS [place]:-53 degI-40 Horizontal [place]:77 degI-40 | | | Front [place]:-44 degT-40 Horizontal [place]:204 degT-40 Front [place]:-83 | | | degT Horizontal [place]:95 degT Wave [place]:39 degS-T Horizontal [place]:79 | | | degS-T Front [place]:49 degSeverity:- ABNORMAL ECG -INTERP:SINUS | | | RHYTHMINTERP:CONSIDER RIGHT VENTRICULAR HYPERTROPHYINTERP:PROBABLE | | | INFERIOR INFARCT, AGE INDETERMINATEINTERP:BORDERLINE ST ELEVATION, | | | ANTERIOR LEADSElectronically signed by: ELIZABETH CAMPBELL 06-12-2018 | | | 07:37:14 | | |QRS Horizontal [place]:129 deg | | |QRS [place]:-53 deg | | |I-40 Horizontal [place]:77 deg | | |I-40 Front [place]:-44 deg | | |T-40 Horizontal [place]:204 deg | | |T-40 Front [place]:-83 deg | | |T Horizontal [place]:95 deg | | |T Wave [place]:39 deg | | |S-T Horizontal [place]:79 deg | | |S-T Front [place]:49 deg | | |Severity:- ABNORMAL ECG - [...] + + | SARITHA TRACE | [address] | [place] [address] | [phone] | + + + + + CBC [...] | | MEDICAL CENTER | | | [address] | | LABORATORY | | | | | CERNER | + + + + + + + | Specimen | + + | Blood | + + + + + + + | Performing | Address | City/State/Zipcode | Phone Number | | Organization | | | | + + + + + | AM[facility]CAR [facility] | [address] | [place] [address] | | | [facility] | | | | | LABORATORY [...] [facility] | | | | | [facility] | | | | | LABORATORY | | | | | CERNER | + + + + + | GLUCOSE | 96 | 65 - 99 mg/dL | [facility] | | | | | [facility] | | | | | [facility] | | | | | LABORATORY | | | | | CERNER | + + + + + | Estimated GFR | 51 (L)Comment: eGFR<60 | >=90 mL/min/1.73m2 | [facility] | | | consistent with impaired | | [facility] | | | kidney | | MEDICAL CENTER | | | function.Performed by | | LABORATORY | | | [facility] [address], | | JAMINNER | | | [place] [address] | | | + + + + + + + | Specimen | + + | Blood | + + + + + + + | Performing | Address | City/State/Zipcode | Phone Number | | Organization | | | | + + + + + | AM[facility]CAR [facility] | [address] | [place] [address] | | | [facility] | | | | | LABORATORY [place] | | | | + + + + + POC Glucose (06/12/2018 0239) + + + + + | Component | Value | Ref Range | Performed At | + + + + + | Glucose, POC | 107 (H)Comment: | 65 - 99 mg/dL | [facility] | | | Performed by [facility] [address] | | [facility] | | | [address], [place] | | MEDICAL CENTER | | | [address] | | LABORATORY | | | | | CERNER | + + + + + + + | Specimen | + + | Blood | + + + + + + + | Performing | Address | City/State/Zipcode | Phone Number | | Organization | | | | + + + + + | AMILCAR CARDONA | [address] | [place] [address] | | | [facility] | | | | | LABORATORY CERNER | | | | + + + + + POC Glucose (06/12/2018 0135) + + + +-------- ---------+ | Component | Value | Ref Range | Perform ed At | + + + +-------- ---------+ | Glucose, POC | 99Comment: Performed by | 65 - 99 mg/dL | [facility] | | | [facility] [address], | | [facility] | | | [place] [address] | | [facility] | | |Performed by [facility] [address], [place] [address] | | LABORAT ORY | | | | | CERNER | + + + +-------- ---------+ + + | Specimen | + + | Blood | + + + + + + + | Performing | Address | City/State/Zipcode | Phone Number | | Organization | | | | + + + + + | [facility] | [address] | [place] [address] | | | [facility] | | | | | LABORATORY CERNER | | | | + + + + + POC Glucose (06/11/20188) + + + + + | Component | Value | Ref Range | Performed At | + + + + + | Glucose, POC | 105 (H)Comment: | 65 - 99 mg/dL | [facility] | | | Performed by [facility] [address] | | [facility] | | | [address], [place] | | [facility] | | | [address] | | LABORATORY | | | | | CERNER | + + + + + + + | Specimen | + + | Blood | + + + + + + + | Performing | Address | City/State/Zipcode | Phone Number | | Organization | | | | + + + + + | YARELISDEMIKarly [facility] | [address] | [place] [address] | | | [facility] | | | | | LABORATORY [place] | | | | + + + + + POC Glucose (06/11/2018 2319) + + + + + | Component | Value | Ref Range | Performed At | + + + + + | Glucose, POC | 113 (H)Comment: | 65 - 99 mg/dL | [facility] | | | Performed by [facility] [address] | | [facility] | | | [place] | | MEDICAL CENTER | | | [address] | | LABORATORY | | | | [...] [address] | [place] [address] | | | [facility] | | | | | LABORATORY CERNER | | | | + + + + + Potassium Whole Blood (06/11/2018 2301) + + + + + | Component | Value | Ref Range | Performed At | + + + + + | K | 5.4 (H)Comment: | 3.5 - 5.0 mmol/L | [facility] | | | Performed by [facility] [address] | | [facility] | | | [address] [place] | | [facility] | | | [address] | | LABORATORY | | | | | [place] | + + + + + + + | Specimen | + + | Blood | + + + + + + + | Performing | Address | City/State/Zipcode | Phone Number | | Organization | | | | + + + + + | [facility] | [address] | [place] [address] | | | [facility] | | | | | LABORATORY CERNER | | | | + + + + + Glucose, Respiratory (06/11/20182300) + + + + + | Component | Value | Ref Range | Performed At | + + + + + | GLUCOSE | 112 (H)Comment: | 65 - 99 mg/dL | [facility] | | | Performed by [facility] [address] | | [facility] | | | [address], [place] | | [facility] | | | [address] | | LABORATORY | | | | | CERNER | + + + + + + + | Specimen | + + | Blood | + + + + + + + | Performing | Address | City/State/Zipcode | Phone Number | | Organization | | | | + + + + + | YARELISDEMIKarly CARD[facility] | [address] | [place] [address] | | | [facility] | | | | | RIVERA [...] % | [facility] | | | by [facility] [address], | | [facility] | | | [place] [address] | | MEDICAL CENTER | | |Performed by [facility] [address], [place] [address] | | LABORATORY | | | | | CERNER | + + + ----+ + + + | Specimen | + + | Blood - Artery | + + + + + + + | Performing | Address | City/State/Zipcode | Phone Number | | Organization | | | | + + + + + | AM[facility] | [address] | [place] [address] | | | [facility] | | | | | LABORATORY JAMINNER | | | | + + + + + POC Glucose (06/11/2018 2156) + + + + + | Component | Value | Ref Range | Performed At | + + + + + | Glucose, POC | 116 (H)Comment: | 65 - 99 mg/dL | [facility] | | | Performed by [facility] [address] | | [facility] | | | [place] | | [facility] | | | [address] | | LABORATORY | | | | | JAMINNER | + + + + + + + | Specimen | + + | Blood | + + + + + + + | Performing | Address | City/State/Zipcode | Phone Number | | Organization | | | | + + + + + | [facility] | [address] | [place] [address] | | | [facility] | | | | | LABORATORY CERNER | | | | + + + + + POC Glucose (06/11/20182028) + + + + + | Component | Value | Ref Range | Performed At | + + + + + | Glucose, POC | 147 (H)Comment: | 65 - 99 mg/dL | [facility] | | | Performed by [facility] [address] | | [facility] | | | [address], [place] | | MEDICAL CENTER | | | [address] | | LABORATORY | | | | | CERNER | + + + + + + + | Specimen | + + | Blood | + + + + + + + | Performing | Address | City/State/Zipcode | Phone Number | | Organization | | | | + + + + + | [facility] | [address] | [place] [address] | | | [facility] | | | | | LABORATORY [place] | | | | + + + + + Potassium (06/11/20181957) + + + +-------- ---------+ | Component | Value | Ref Range | Perform ed At | + + + +-------- ---------+ | K | 3.9Comment: Performed | 3.5 - 5.0 mmol/L | [facility] | | | by [facility] [address], | | [facility] | | | [place] [address] | | [facility] | | |Performed by [facility] [address], [place] [address] | | LABORAT ORShahnaz | | | | | CERNER | + + + +-------- ---------+ + + | Specimen | + + | Blood | + + + + + + + | Performing | Address | City/State/Zipcode | Phone Number | | Organization | | | | + + + + + | [facility] | [address] | [place] [address] | | | [facility] | | | | | LABORATORY CERNER | | | | + + + + + POC Glucose (06/11/20181851) + + + + + | Component | Value | Ref Range | Performed At | + + + + + | Glucose, POC | 156 (H)Comment: | 65 - 99 mg/dL | [facility] | | | Performed by [facility] [address] | | [facility] | | | [address] [place] | | [facility] | | | [address] | | LABORATORY | | | | | CERNER | + + + + + + + | Specimen | + + | Blood | + + + + + + + | Performing | Address | City/State/Zipcode | Phone Number | | Organization | | | | + + + + + | AM[facility] | [address] | [place] [address] | | | [facility] | | | | | LABORATORY [place] | | | | + + + + + ECG 12 lead (06/11/2018 1659) + + + | Narrative | Performed At | + + + | HEART RATE:72 | [facility] | | bpmRR Interval:833 msAtrial Rate:72 msP-R Interval:176 msP | [facility] | | Duration:180 msP Horizontal [place]:-10 degP Front [place]:68 degQ Onset:512 | | | msQRSD Interval:110 msQT Interval:444 msQTcB:486 msQTcF:472 msQRS | | | Horizontal [place]:112 degQRS [place]:-63 degI-40 Horizontal [place]:100 | | | degI-40 Front [place]:-58 degT-40 Horizontal [place]: degT-40 Front [place]:160 | | | degT Horizontal [place]:104 degT Wave [place]:-11 degS-T Horizontal | | | [place]:104 degS-T Front [place]:32 degSeverity:- ABNORMAL ECG -INTERP:SINUS | | | RHYTHMINTERP:PROBABLE LEFT ATRIAL ABNORMALITYINTERP:NONSPECIFIC IVCD | | | WITH LADINTERP:INFERIOR INFARCT, AGE INDETERMINATEINTERP:LATERAL | | | INFARCT, OLDElectronically signed by: ELIZABETH CAMPBELL 06-12-2018 | | | 11:18:02 | | |QRS Horizontal [place]:112 deg | | |QRS [place]:-63 deg | | |I-40 Horizontal [place]:100 deg | | |I-40 Front [place]:-58 deg | | |T-40 Horizontal [place]: deg | | |T-40 Front [place]:160 deg | | |T Horizontal [place]:104 deg | | |T Wave [place]:-11 deg | | |S-T Horizontal [place]:104 deg | | |S-T Front [place]:32 deg | | |Severity:- ABNORMAL ECG - [...] + + | [facility] | [address] | [place] [address] | [phone] | + + + + + PTT [...] | | | | | seconds.Performed by [facility] | | | | | [address], | | | | | [place] [address] | | | + + + + + + + | Specimen | + + | Blood | + + + + + + + | Performing | Address | City/State/Zipcode | Phone Number | | Organization | | | | + + + + + | [facility] | [address] | [place] [address] | | | [facility] | [...] CERNER | | | to 3.5Performed by [facility] | | | | | [address], | | | | | [place] [address] | | | + + + + + + + | Specimen | + + | Blood | + + + + + + + | Performing | Address | City/State/Zipcode | Phone Number | | Organization | | | | + + + + + | [facility] MATAMOR[facility] | [address] | [place] [address] | | | [facility] | | | | | LABORATORY [...] [facility] | | | | | [facility] | | | | | LABORATORY | | | | | CERNER | + + + + + | Estimated GFR | 55 (L)Comment: eGFR<60 | >=90 mL/min/1.73m2 | [facility] | | | consistent with impaired | | [facility] | | | kidney | | MEDICAL CENTER | | | function.Performed by | | LABORATORY | | | [facility] [address], | | [place] | | | [place] [address] | | | + + + + + + + | Specimen | + + | Blood | + + + + + + + | Performing | Address | City/State/Zipcode | Phone Number | | Organization | | | | + + + + + | [facility] | [address] | [place] [address] | | | [facility] | [...] | [facility] | | | Performed by [facility] [address] | | [facility] | | | [place] | | [facility] | | | [address] | | LABORATORY | | | | | [place] | + + + + + + + | Specimen | + + | Blood | + + + + + + + | Performing | Address | City/State/Zipcode | Phone Number | | Organization | | | | + + + + + | [facility] | [address] | [place] [address] | | | [facility] | | | | | LABORATORY CERNER | | | | + + + + + Lactic Acid, Arterial, Respiratory (06/11/2018 1636) + + + + + | Component | Value | Ref Range | Performed At | + + + + + | Lactate, Arterial | 1.0Comment: Performed | 0.5 - 1.6 mmol/L | [facility] | | | by [facility] [address], | | [facility] | | | [place] [address] | | MEDICAL CENTER | | |Performed by [facility] [address], [place] [address] | | LABORATORY | | | | | CERNER | + + + + + + + | Specimen | + + | Blood | + + + + + + + | Performing | Address | City/State/Zipcode | Phone Number | | Organization | | | | + + + + + | [facility] | [address] | [place] [address] | | | [facility] | | | | | LABORATORY [...] [facility] | | | | | [facility] | | | | | LABORATORY | | | | | CERNER | + + + + + | Calcium, pH | 5.06Comment: Performed | 4.75 - 5.30 mg/dL | [facility] | | Normalized | by [facility] [address], | | [facility] | | | [place] [address] | | [facility] | | |Performed by [facility] [address], [place] [address] | | LABORATORY | | | | | CERNER | + + + + + + + | Specimen | + + | Blood | + + + + + + + | Performing | Address | City/State/Zipcode | Phone Number | | Organization | | | | + + + + + | YARELISDEMIKarly BRENDAN | [address] | [place] [address] | | | [facility] | | | | | LABORATORY CERNER | | | | + + + + + Glucose, Respiratory (06/11/2018 1636) + + + + + | Component | Value | Ref Range | Performed At | + + + + + | GLUCOSE | 122 (H)Comment: | 65 - 99 mg/dL | [facility] | | | Performed by [facility] [address] | | [facility] | | | [address], [place] | | MEDICAL CENTER | | | [address] | | LABORATORY | | | | | [place] | + + + + + + + | Specimen | + + | Blood | + + + + + + + | Performing | Address | City/State/Zipcode | Phone Number | | Organization | | | | + + + + + | [facility] | [address] | [place] [address] | | | [facility] | | | | | [...] + ----+ + | Comment | [id number] | | [facility] | | | | [...] % | [facility] | | | by [facility] [address], | | [facility] | | | [place], [place] | | [facility] | | |Performed by [facility] [address], [place], [place] | | LABORATORY | | | [...] SACRED | [address] | [place], [place] | | | [facility] [...] | [facility] | | | Performed by [facility] [place] | | [facility] | | | [address], [place], [place] | | MEDICAL CENTER | | | [address] | | LABORATORY | | | | | ALTAGRACIA | + + + + + + + | Specimen | + + | Blood | + + + + + + + | Performing | Address | City/State/Zipcode | Phone Number | | Organization | | | | + + + + + | [facility] | [address] | [place] [address] | | | [facility] | [...] L | [facility] | | | by [facility] [address], | | [facility] | | | [place] [address] | | MEDICAL CENTER | | |Performed by [facility] [address], [place] [address] | | LABORATORY | | [...] SACR[facility] | [address] | [place] [address] | | | [facility] | | | | | LABORATORY [...] | assay has been evaluated | | [facility] | | | for screening [...] | | | | | seconds.Performed by [facility] | | | | | [address], | | | | | [place] [address] | | | + + + + + + + | Specimen | + + | Blood | + + + + + + + | Performing | Address | City/State/Zipcode | Phone Number | | Organization | | | | + + + + + | [facility] | [address] | [place] [address] | | | [facility] | | | | | [place] | | | | + + + + + Lactic Acid, Arterial, Surgery (06/11/2018 1450) + + + + + | Component | Value | Ref Range | Performed At | + + + + + | Lactate, Arterial | 2.0 (H)Comment: | 0.5 - 1.6 mmol/L | [facility] | | | Performed by [facility] [address] | | [facility] | | | [address], [place] | | MEDICAL CENTER | | | [address] | | LABORATORY | | | | | ALTAGRACIA | + + + + + + + | Specimen | + + | Blood | + + + + + + + | Performing | Address | City/State/Zipcode | Phone Number | | Organization | | | | + + + + + | [facility] | [address] | [place] [address] | | | [facility] | | | | | LABORATORY [...] L | [facility] | | | by [facility] [address], | | [facility] | | | [place], [place] | | MEDICAL CENTER | | |Performed by [facility] [address], [place], [place] | | LABORATORY | | | | | CERNER | + + + ----+ + + + | Specimen | + + | Blood | + + + + + + + | Performing | Address | City/State/Zipcode | Phone Number | | Organization | | | | + + + + + | [facility] | [address] | [place], [place] | | | HEART [facility] | | | | | LABORATORY CERNER | | | | + + + + + Lactic Acid, Arterial, Surgery (06/11/2018 1400) + + + + + | Component | Value | Ref Range | Performed At | + + + + + | Lactate, Arterial | 1.5Comment: Performed | 0.5 - 1.6 mmol/L | [facility] | | | by [facility] [address], | | [facility] | | | [place] [address] | | [facility] | | |Performed by [facility] [address], [place] [address] | | LABORATORY | | | | | CERNER | + + + + + + + | Specimen | + + | Blood | + + + + + + + | Performing | Address | City/State/Zipcode | Phone Number | | Organization | | | | + + + + + | [facility] | [address] | [place] [address] | | | [facility] | | | | | RIVERA [...] | [facility] | | | Performed by [facility] [address] | | [facility] | | | [address], [place] | | MEDICAL CENTER | | | [address] | | LABORATORY | | | | | [place] | + + + + + + + | Specimen | + + | Blood | + + + + + + + | Performing | Address | City/State/Zipcode | Phone Number | | Organization | | | | + + + + + | [facility] | [address] | [place] [address] | | | HEART [facility]ICAL [facility]ENTER | [...] mmol/L | [facility] | | | by [facility] [address], | | [facility] | | | [place] [address] | | [facility] | | |Performed by [facility] [address], [place] [address] | | LABORATORY | | | | | CERNER | + + + + + + + | Specimen | + + | Blood | + + + + + + + | Performing | Address | City/State/Zipcode | Phone Number | | Organization | | | | + + + + + | [facility] | [address] | [place] [address] | | | [facility] | | | | | LABORATORY [...] | [facility] | | | Performed by [facility] [address] | | [facility] | | | [address], [place] | | MEDICAL [facility] | | | [address] | | LABORATORY | | | | | [place] | + + + + ----+ + + | Specimen | + + | Blood | + + + + + + + | Performing | Address | City/State/Zipcode | Phone Number | | Organization | | | | + + + + + | [facility] | [address] | [place] [address] | | | [facility] | | | | | LABORATORY CERSAMAN | | | | + + + + + ECHO Transesophageal (CHIQUITA) (06/11/2018 1305) + -----+ + | Narrative | Performed At | + -----+ + | | [facility] | | Transesophageal Echocardiography Report (CHIQUITA) Demographics Patient | | | Name [facility] Room | | | Number Therese BOGGS | | | Patient Number [id number] Date of | | | Study 06/11/2018 Visit Number [id number] | | | Accession | | | [id number] Interpreting Sharad Richard | | | Number | | | Physician Date of 1955 Referring | | | Physician ELEANOR MARTIN Age 62 | | | year(s) [employer] 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 Visible portions of ascending aorta and arch normal. 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 Pulmonary artery | | | [id number]. Normal pericardium. No pericardial fluid. No pleural [...] Report | | (CHIQUITA) Demographics Patient Name [facility] Room Number 270 | | ZIYAD Patient Number [id number] Date of Study 06/11/2018 Visit | | Number [id number] Interpreting Ross | | MD Jose Manuel Number Physician Date of 1955 | | Referring Physician ELEANOR MARTIN Age 62 year(s) | | [employer] Certified Network Professional Sanjeev Bradshaw, | | MD Sharad Richard [...] function. Trace TR.7. Pulmonic valve normal Trace UT.8. Visible portions | | of ascending aorta and arch normal. 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 Pulmonary artery [id number]. Normal pericardium. No pericardial fluid. No pleural [...] mmol/L | [facility] | | | by [facility] [address], | | [facility] | | | [place], [place] | | [facility] | | |Performed by [facility] [address], [place] [address] | | LABORATORY | | | | | [place] | + + + + + + + | Specimen | + + | Blood | + + + + + + + | Performing | Address | City/State/Zipcode | Phone Number | | Organization | | | | + + + + + | [facility] | [address] | [place], [place] | | | [facility] | | | | | LABORATORY [...] | | MEDICAL CENTER | | | [address] | | LABORATORY | | | | | CERNER | + + + + + + + | Specimen | + + | Blood | + + + + + + + | Performing | Address | City/State/Zipcode | Phone Number | | Organization | | | | + + + + + | [facility] | [address] | [place] [address] | | | [facility] | | | | | LABORATORY CERNER | | | | + + + + + Lactic Acid, Arterial, Surgery (06/11/2018 1035) + + + + + | Component | Value | Ref Range | Performed At | + + + + + | Lactate, Arterial | 0.9Comment: Performed | 0.5 - 1.6 mmol/L | [facility] | | | by [facility] [address], | | [facility] | | | [place] | | MEDICAL CENTER | | |Performed by [facility] [address], [place], [place] | | LABORATORY | | | | | [place] | + + + + + + + | Specimen | + + | Blood | + + + + + + + | Performing | Address | City/State/Zipcode | Phone Number | | Organization | | | | + + + + + | [facility] | [address] | [place], [place] | | | [facility] | | | | | RIVERA [...] | [facility] | | | [address] [place], [place] | | MEDICAL CENTER | | | [address] | | LABORATORY | | | | | CERNER | + + + + + + + | Specimen | + + | Blood | + + + + + + + | Performing | Address | City/State/Zipcode | Phone Number | | Organization | | | | + + + + + | [facility] | [address] | [place] [address] | | | [facility] | | | | | LABORATORY [...] [facility] LAB | | | | | [place] | | | | | [facility] | | | | [facility] | + + + + + | Rh Type | Negative | | [facility] | | | | | [place] | | | | | [facility] | | | | | [facility]ENTER | + + + + + + + | Specimen | + + | Blood | + + + + + | Narrative | Performed At | + + + | Specimen Expiration Date: [id number] | [facility] | | | [place] | | | [facility] | | | [facility] | + + + + + + + + | Performing | Address | City/State/Zipcode | Phone Number | | Organization | | | | + + + + + | [facility] | [address] | [place] [address] | [phone] | | [place] | | | | | [facility] [...] | [facility] | | | Performed by [facility] [address] | | [facility] | | | [facility], [place], [place] | | MEDICAL CENTER | | | [address] | | LABORATORY | | | | | [place] | + + + + + + + | Specimen | + + | Blood | + + + + + + + | Performing | Address | City/State/Zipcode | Phone Number | | Organization | | | | + + + + + | [facility] | [address] [place] [address]. | [place] [address] | | | [facility] | | | | | [...] | CERNER | | | 3.5Performed by [facility] [address] | | | | | [place] | | | | | [address] | | | + + + + + + + | Specimen | + + | Blood | + + + + + + + | Performing | Address | City/State/Zipcode | Phone Number | | Organization | | | | + + + + + | [facility] | [address] | [place] [address] | | | [facility] | | | | | LABORATORY [...] | [facility] | | | Performed by [facility] [address] | | [facility] | | | [address] [place] | | MEDICAL CENTER | | | [address] | | LABORATORY | | | | | CERNER | + + + + + + + | Specimen | + + | Blood | + + + + + + + | Performing | Address | City/State/Zipcode | Phone Number | | Organization | | | | + + + + + | [facility] | [address] | [place] [address] | | | [facility] | | | | | LABORATORY [...] HEART | | | kidney | | [facility] | | | function.Performed by | | LABORATORY | | | [facility] [address], | | [place] | | | [place] [address] | | | + + + + + + + | Specimen | + + | Blood | + + + + + + + | Performing | Address | City/State/Zipcode | Phone Number | | Organization | | | | + + + + + | [facility] | [address] | [place] [address] | | | [facility] | | | | | LABORATORY [...] | | | pulmonary embolism | | [facility] | | | therapeutic heparin | | [...] | | | | | seconds.Performed by [facility] | | | | | [address], | | | | | [place] [address] | | | + + + + + + + | Specimen | + + | Blood | + + + + + + + | Performing | Address | City/State/Zipcode | Phone Number | | Organization | | | | + + + + + | [facility] | [address] | [place] [address] | | | [facility] | | | | | RIVERA [...] H EART | | | | | [facility] | | | | | LABORATO RY | | | | | CERNER | + + + +--------- --------+ | Specimen Source | NasalComment: Performed | | [facility] | | | by [place] [address], | | [facility] | | | [place] [address] | | [facility] | | |Performed by [facility] [address], [place] [address] | | LABORATO RY | | | | | CERNER | + + + +--------- --------+ + + | Specimen | + + | Tissue - Nares | + + + + + + + | Performing | Address | City/State/Zipcode | Phone Number | | Organization | | | | + + + + + | [facility] | [address] | [place] [address] | | | [facility] | | | | | LABORATORY [...] + + + + + | Specific [place] | 1.010 | 1.001 - 1.030 | [...] | [facility] | | | Performed by [facility] [address] | | [facility] | | | [address] [place] | | MEDICAL CENTER | | | [address] | | LABORATORY | | | | [...] + + | [facility] | [address] | [place] [address] | | | [facility] | | | | | [place] | | | | + + + + + POC Glucose (06/10/2018 2254) + + + + + | Component | Value | Ref Range | Performed At | + + + + + | Glucose, POC | 129 (H)Comment: | 65 - 99 mg/dL | [facility] | | | Performed by [facility] [address] | | [facility] | | | [place] | | [facility] | | | [address] | | LABORATORY | | | | | CERNER | + + + + + + + | Specimen | + + | Blood | + + + + + + + | Performing | Address | City/State/Zipcode | Phone Number | | Organization | | | | + + + + + | [facility] | [address] | [place] [address] | | | [facility] | | | | | LABORATORY [...] | | | pulmonary embolism | | [facility] | | | therapeutic heparin [...] | | | | | seconds.Performed by [facility] | | | | | [address], | | | | | [place] [address] | | | + + + + + + + | Specimen | + + | Blood | + + + + + + + | Performing | Address | City/State/Zipcode | Phone Number | | Organization | | | | + + + + + | [facility] | [address] | [place] [address] | | | [facility] | | | | | RIVERA [...] by | | LABORATORY | | | [facility] [address], | | CERNER | | | [place] [address] | | | + + + + + + + | Specimen | + + | Blood | + + + + + + + | Performing | Address | City/State/Zipcode | Phone Number | | Organization | | | | + + + + + | [facility]EL[facility]CARLOS [facility] | [address] | [place] [address] | | | [facility] | | | | | LABORATORY [...] [facility] | | | | | [facility] | | | | [...] | CERNER | | | 3.5Performed by [facility] [address] | | | | | [address] [place] | | | | | [address] | | | + + + + + + + | Specimen | + + | Blood | + + + + + + + | Performing | Address | City/State/Zipcode | Phone Number | | Organization | | | | + + + + + | [facility] | [address] | [place] [address] | | | [facility] | | | | | LABORATORY CERNER | | | | + + + + + POC Glucose (06/10/2018 1623) + + + + + | Component | Value | Ref Range | Performed At | + + + + + | Glucose, POC | 113 (H)Comment: | 65 - 99 mg/dL | [facility] | | | Performed by [facility] [address] | | [facility] | | | [address], [place] | | MEDICAL CENTER | | | [address] | | LABORATORY | | | | | CERNER | + + + + + + + | Specimen | + + | Blood | + + + + + + + | Performing | Address | City/State/Zipcode | Phone Number | | Organization | | | | + + + + + | [facility]ELISCARLOS [facility] | [address] | [place] [address] | | | [facility] | | | | | LABORATORY [...] Amplification test | | | | | ([id number]).Performed At: | | | | | [facility] [id number] | | | | | [address] | | | | | [place], [place] | | | | | [id number] Daniel | | | | | Riya MOJICA Ph:[phone] | | | + + + + + + + | Specimen | + + | Blood | + + + + + + + | Performing | Address | City/State/Zipcode | Phone Number | | Organization | | | | + + + + + | [facility] | [address] | [place] [address] | | | [facility] | | | | | RIVERA [...] | | | embolism therapeutic | | [facility] | | | heparin levels of 0.3 [...] | | | | | seconds.Performed by [facility] | | | | | [address], | | | | | [place] [address] | | | + + + + + + + | Specimen | + + | Blood | + + + + + + + | Performing | Address | City/State/Zipcode | Phone Number | | Organization | | | | + + + + + | [facility]ELISDEMIKarly [facility] | [address] | [place] [address] | | | [facility] | | | | | [place] | | | | + + + + + ECG 12 lead (06/10/2018 1210) + + + | Narrative | Performed At | + + + | HEART RATE:71 | [facility] | | bpmRR Interval:845 msAtrial Rate:71 msP-R Interval:148 msP | TRAC[facility]ASTER | | Duration:152 msP Horizontal [place]:32 degP Front [place]:62 degQ Onset:512 | | | msQRSD Interval:110 msQT Interval:416 msQTcB:453 msQTcF:440 msQRS | | | Horizontal [place]:199 degQRS [place]:-83 degI-40 Horizontal [place]:77 degI-40 | | | Front [place]:-74 degT-40 Horizontal [place]:242 degT-40 Front [place]:216 | | | degT Horizontal [place]:84 degT Wave [place]:69 degS-T Horizontal [place]:97 | | | degS-T [place]:107 degSeverity:- ABNORMAL ECG -INTERP:SINUS | | | RHYTHMINTERP:NONSPECIFIC IVCD WITH LADINTERP:INFERIOR INFARCT, | | | OLDElectronically signed by: ELIZABETH CAMPBELL 06-12-2018 11:24:19 | | |QTcB:453 ms | | |QTcF:440 ms | | |QRS Horizontal [place]:199 deg | | |QRS [place]:-83 deg | | |I-40 Horizontal [place]:77 deg | | |I-40 Front [place]:-74 deg | | |T-40 Horizontal [place]:242 deg | | |T-40 Front [place]:216 deg | | |T Horizontal [place]:84 deg | | |T Wave [place]:69 deg | | |S-T Horizontal [place]:97 deg | | |S-T Front [place]:107 deg | | |Severity:- ABNORMAL ECG - [...] + + | [facility] | [address] | [place] [address] | [phone] | + + + + + Pulmonary [...] | | | | | seconds.Performed by [facility] | | | | | [address], | | | | | [place] [address] | | | + + + + + + + | Specimen | + + | Blood | + + + + + + + | Performing | Address | City/State/Zipcode | Phone Number | | Organization | | | | + + + + + | [facility] | [address] | [place] [address] | | | [facility] | | | | | LABORATORY [...] [facility] | | | | | [facility] | | | Nega [...] Amplification test | | | | | ([id number]).Performed At: | | | | | [facility] [id number] | | | | | [place] [address] | | | | | [place], [place] | | | | | [id number] Daniel | | | | | L Ph:[phone] | | | + + + + + | HEP A TOTAL AB | Positive (A) | Negative | [facility] | | | | | [facility] | | | | | [facility] | | | | | LABORATORY [...] + | [facility] | [address] | [place] [address] | | | [facility] | | | | | LABORATORY [...] less than 7% as the | | [facility] | | | goal [...] | | | | | formula.Performed by [facility] | | | | | [address], | | | | | [place] [address] | | | + + + + + + + | Specimen | + + | Blood | + + + + + + + | Performing | Address | City/State/Zipcode | Phone Number | | Organization | | | | + + + + + | [facility] | [address] | [place] [address] | | | [facility] | | | | | [place] | | | | + + + + + ABO Rh (06/10/2018 0649) + + + + + | Component | Value | Ref Range | Performed At | + + + + + | ABO | O | | [facility] | | | | | [place] | | | | | [facility] | | | | [facility] | + + + + + | Rh Type | Negative | | [facility] | | | | | [place] | | | | | [facility] | | | | [facility] | + + + + + + + + | Narrative | Performed At | + + + | Specimen Expiration Date: [id number] | [facility] | | | [place] | | | [facility] | | [facility] | + + + + + + + + | Performing | Address | City/State/Zipcode | Phone Number | | Organization | | | | + + + + + | [facility] | [address] | [place] [address] | [phone] | | [place] | | | | | [facility] | | | | | [facility] | | | | + + + + + Antibody Screen (06/10/2018 0649) + + + + + | Component | Value | Ref Range | Performed At | + + + + + | Antibody Screen | Positive | | [facility] | | | | | [place] | | | | | [facility] | | | | [facility] | + + + + + + + + | Narrative | Performed At | + + + | Specimen Expiration Date: [id number] | [facility] | | | [place] | | | [facility] | | [facility] | + + + + + + + + | Performing | Address | City/State/Zipcode | Phone Number | | Organization | | | | + + + + + | [facility] | [address] | [place] [address] | [phone] | | [place] | | | | | [facility] | | | | [facility] | | | | + + + + + Antibody identification (06/10/201845) + + + + + | Component | Value | Ref Range | Performed At | + + + + + | Antibody ID | Anti-Javierka | | [facility] | | | | | [place] | | | | | [facility] | | | | [facility] | + + + + + + + + | Narrative | Performed At | + + + | Specimen Expiration Date: [id number] | [facility] | | | [place] | | | [facility] | | [facility] | + + + + + + + + | Performing | Address | City/State/Zipcode | Phone Number | | Organization | | | | + + + + + | [facility] | [address] | [place] [address] | [phone] | | [place] | | | | | [facility] | | | | [facility] | | | | + + + + + Type and Screen (06/10/2018 0046) + + + + + | Component | Value | Ref Range | Performed At | + + + + + | ABO | O | | [facility] | | | | | [place] | | | | | [facility] | | | | [facility] | + + + + + | Rh Type | Negative | | [facility] | | | | | [place] | | | | | [facility] | | | | [facility] | + + + + + | Antibody Screen | Positive | | [facility] | | | | | [place] | | | | | [facility] | | | | [facility] | + + + + + + + | Specimen | + + | Blood | + + + + + | Narrative | Performed At | + + + | Specimen Expiration Date: [id number] | [facility] | | | [place] | | | [facility] | | [facility] | + + + + + + + + | Performing | Address | City/State/Zipcode | Phone Number | | Organization | | | | + + + + + | [facility] | [address] | [place] [address] | [phone] | | [place] | | | | | [facility] [...] | | | | | seconds.Performed by [facility] | | | | | [address], | | | | | [place] [address] | | | + + + + + + + | Specimen | + + | Blood | + + + + + + + | Performing | Address | City/State/Zipcode | Phone Number | | Organization | | | | + + + + + | [facility] | [address] | [place] [address] | | | [facility] | | | | | LABORATORY [...] | proximal 40% LAD, 95% ostial septal energy operations vice president, 70% mid and distal LAD, 100% mid [...] | | | LAD, 95% ostial septal energy operations vice president, 70% mid and distal LAD, 100% mid [...] lateral castillo from | | | prior FL. 4. Mild destinee infarct ischemia. LARGE SEVERE inferior and | | | Lateral FL. 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 | | Duration:176 msP Horizontal [place]:19 degP Front [place]:70 degQ Onset:512 | | | msQRSD Interval:110 msQT Interval:444 msQTcB:480 msQTcF:467 msQRS | | | Horizontal [place]:157 degQRS [place]:-77 degI-40 Horizontal [place]:75 degI-40 | | | Front [place]:-59 degT-40 Horizontal [place]:240 degT-40 Front [place]:267 | | | degT Horizontal [place]:91 degT Wave [place]:68 degS-T Horizontal [place]:98 | | | degS-T Front [place]:103 degSeverity:- ABNORMAL ECG -INTERP:SINUS | | | RHYTHMINTERP:NONSPECIFIC IVCD WITH LADINTERP:INFERIOR INFARCT, | | | OLDElectronically signed by: ELIZABETH CAMPBELL 06-12-2018 11:25:24 | | |QTcB:480 ms | | |QTcF:467 ms | | |QRS Horizontal [place]:157 deg | | |QRS [place]:-77 deg | | |I-40 Horizontal [place]:75 deg | | |I-40 Front [place]:-59 deg | | |T-40 Horizontal [place]:240 deg | | |T-40 Front [place]:267 deg | | |T Horizontal [place]:91 deg | | |T Wave [place]:68 deg | | |S-T Horizontal [place]:98 deg | | |S-T Front [place]:103 deg | | |Severity:- ABNORMAL ECG - [...] + + | [facility] | [address] | [place] | [phone] | + + + + + Magnesium (06/09/2018 0307) + + + +--------- --------+ | Component | Value | Ref Range | Performe d At | + + + +--------- --------+ | Magnesium | 2.1Comment: Performed | 1.7 - 2.4 mg/dL | [facility] | | | by [facility] [address], | | [place] | | | [place] | | [facility] | | |Performed by [facility] [address], [place] | | [place] | | | | | [place] | + + + +--------- --------+ + + | Specimen | + + | Blood | + + + + + + + | Performing | Address | City/State/Zipcode | Phone Number | | Organization | | | | + + + + + | AMILCAR CARDONA | [address] | [place] [address] | | | [facility] | | | | | [place] [...] L | [place] | | | by [facility] [address], | | [facility] | | | [place] [address] | | [facility] | | |Performed by [facility] [address], [place] [address] | | LABORATORY | | | | | CERNER | + + + --+ + + + | Specimen | + + | Blood | + + + + + + + | Performing | Address | City/State/Zipcode | Phone Number | | Organization | | | | + + + + + | PROVIDEDEMIE BRENDAN | [address] | [place] [address] | | | [facility] | | | | | LABORATORY [...] by | | LABORATORY | | | [facility] [address], | | [place] | | | [place] [address] | | | + + + + + + + | Specimen | + + | Blood | + + + + + + + | Performing | Address | City/State/Zipcode | Phone Number | | Organization | | | | + + + + + | AMILCAR CARDONA | [address] | [place] [address] | | | [facility] | | | | | LABORATORY [...] and read back by LEANN Sandhu | [facility] | | | at 06/08/2018 10:03:33 [...] | | | | | TroponinPerformed by [facility] | | | | | [address], | | | | | [place] [address] | | | + + + + + + + | Specimen | + + | Blood | + + + + + + + | Performing | Address | City/State/Zipcode | Phone Number | | Organization | | | | + + + + + | [facility] | [address] | [place] [address] | | | [facility] | | | | | [place] | | | | + + + + + ECG 12 lead (06/08/2018 0430) + + + | Narrative | Performed At | + + + | HEART RATE:94 | [facility] | | bpmRR Interval:638 msAtrial Rate:95 msP-R Interval:148 msP | [facility] | | Duration:200 msP Horizontal [place]:19 degP Front [place]:58 degQ Onset:512 | | | msQRSD Interval:110 msQT Interval:404 msQTcB:506 msQTcF:469 msQRS | | | Horizontal [place]:184 degQRS [place]:265 degI-40 Horizontal [place]:78 degI-40 | | | Front [place]:269 degT-40 Horizontal [place]:240 degT-40 Front [place]:259 | | | degT Horizontal [place]:77 degT Wave [place]:63 degS-T Horizontal [place]:83 | | | degS-T Front [place]:99 degSeverity:- ABNORMAL ECG -INTERP:SINUS | | | RHYTHMINTERP:NONSPECIFIC IVCD WITH LADINTERP:INFERIOR INFARCT, | | | OLDElectronically signed by: ELZIABETH CAMPBELL 06-12-2018 11:24:43 | | |QTcB:506 ms | | |QTcF:469 ms | | |QRS Horizontal [place]:184 deg | | |QRS [place]:265 deg | | |I-40 Horizontal [place]:78 deg | | |I-40 Front [place]:269 deg | | |T-40 Horizontal [place]:240 deg | | |T-40 Front [place]:259 deg | | |T Horizontal [place]:77 deg | | |T Wave [place]:63 deg | | |S-T Horizontal [place]:83 deg | | |S-T Front [place]:99 deg | | |Severity:- ABNORMAL ECG - [...] + | [facility] | [address] | [place] [address] | [phone] | + + + + + Troponin I (06/08/2018315) + + + + + | Component | Value | Ref Range | Performed At | + + + + + | Troponin I | 0.311 (AA)Comment: | 0.000 - 0.069 ng/mL | [facility] | | | Critical troponin called | | [facility] | | | to and read back by | | [facility] | | | luis soto at [...] TroponinPerformed by | | | | | [facility] [address], | | | | | [place] [address] | | | + + + + + + + | Specimen | + + | Blood | + + + + + + + | Performing | Address | City/State/Zipcode | Phone Number | | Organization | | | | + + + + + | [facility] | [address] | [place] [address] | | | [facility] | | | | | LABORATORY JAMINNER | | | | + + + + + Magnesium (06/08/2018315) + + + +--------- --------+ | Component | Value | Ref Range | Performe d At | + + + +--------- --------+ | Magnesium | 1.8Comment: Performed | 1.7 - 2.4 mg/dL | [facility] | | | by [facility] [address], | | [address] | | | [place] [address] | | [facility] | | |Performed by [facility] [address], [place] [address] | | HERNAN MURRELL | | | | | [place] | + + + +--------- --------+ + + | Specimen | + + | Blood | + + + + + + + | Performing | Address | City/State/Zipcode | Phone Number | | Organization | | | | + + + + + | [facility] | [address] | [place] [address] | | | [facility] | | | | | LABORATORY [...] by | | LABORATORY | | | [facility] [address], | | [place] | | | [place] [address] | | | + + + + + + + | Specimen | + + | Blood | + + + + + + + | Performing | Address | City/State/Zipcode | Phone Number | | Organization | | | | + + + + + | [facility] | [address] | [place] [address] | | | HEART [facility] | | | | [...] | and read back by 6S | [facility] | | | MATTI Herrera at [address] | | LABORATORY | | | 0.070 [...] | | | | | TroponinPerformed by [facility] | | | | | [address], | | | | | [place] [address] | | | + + + + + + + | Specimen | + + | Blood | + + + + + + + | Performing | Address | City/State/Zipcode | Phone Number | | Organization | | | | + + + + + | [facility] | [address] | [place] [address] | | | [facility] | | | | | LABORATORY [...] and read back by 6S | | [facility] | | | HECTOR Mcclain at [...] TroponinPerformed by | | | | | [facility] [address], | | | | | [place] [address] | | | + + + + + + + | Specimen | + + | Blood | + + + + + + + | Performing | Address | City/State/Zipcode | Phone Number | | Organization | | | | + + + + + | [facility] | [address] | [place] [address] | | | [facility] | [...] | [facility] | | | Performed by [facility] [address] | | [facility] | | | [address], [place] | | [facility] | | | [address] | | LABORATORY | | | | | [place] | + + + + + + + | Specimen | + + | Blood | + + + + + + + | Performing | Address | City/State/Zipcode | Phone Number | | Organization | | | | + + + + + | [facility] | [address] | [place] [address] | | | [facility] | | | | | [...] [facility] | | | | | [facility] | | | | | LABORATORY | | | | | CERNER | + + + + + | Methadone Screen, | Negative | Negative | [facility] | | Urine | | | [facility] | | | | | [facility] | | | | [...] | | | | | battery.Performed by [facility] | | | | | [address], | | | | | [place] [address] | | | + + + + + + + | Specimen | + + | Urine | + + + + + + + | Performing | Address | City/State/Zipcode | Phone Number | | Organization | | | | + + + + + | [facility] | [address] | [place] [address] | | | [facility] | | | | | RIVERA [...] | Critical TRPI called to | | [facility] | | | and read back by [facility] | | | TAYA Serrano at | [...] | | | | | [place].Performed by [facility] [address] | | | | | [address] [place] | | | | | [address] | | | + + + + + + + | Specimen | + + | Blood | + + + + + + + | Performing | Address | City/State/Zipcode | Phone Number | | Organization | | | | + + + + + | [facility] | [address] | [place] [address] | | | [facility] | | | | | [place] | | | | + + + + + Myoglobin (06/07/2018909) + + + +----- + | Component | Value | Ref Range | Perf ormed At | + + + +----- + | MYOGLOBIN, SERUM | 69Comment: Performed by | 0 - 69 ng/mL | [facility] | | | [facility] [address], | | [facility] | | | [place] [address] | | [facility] | | |Performed by [facility] [address], [place] [address] | | LABO RATORY | | | [...] [facility] | [address] | [place], [place] | | | [facility] | | | | | LABORATORY CERNER | | | | + + + + + Lipase (06/07/2018909) + + + + ----+ | Component | Value | Ref Range | Performed At | + + + + ----+ | Lipase | 32Comment: Performed by | 11 - 82 U/L | [facility] | | | [facility] [address], | | [facility] | | | [place] | | [facility]ICAL [facility] | | |Performed by [facility] [address], [place] | | LABORATORY | | | | | [place] | + + + + ----+ + + | Specimen | + + | Blood | + + + + + + + | Performing | Address | City/State/Zipcode | Phone Number | | Organization | | | | + + + + + | [facility] | [address] | [place] [address] | | | [facility] | | | | | RIVERA [...] by | | LABORATORY | | | [facility] [address], | | [place] | | | [place] [address] | | | + + + + + + + | Specimen | + + | Blood | + + + + + + + | Performing | Address | City/State/Zipcode | Phone Number | | Organization | | | | + + + + + | [facility] C[facility] | [address] | [place] [address] | | | [facility] | | | | [...] L | [facility] | | | by [facility] [address], | | [facility] | | | [place], [place] | | [facility] | | |Performed by [facility] [address], [place], [place] | | LABORATORY | | | | | [place] | + + + --+ + + + | Specimen | + + | Blood | + + + + + + + | Performing | Address | City/State/Zipcode | Phone Number | | Organization | | | | + + + + + | [facility] | [address] | [place], [place] | | | [facility] | | | | | LABORATORY [facility] | | | | + + + + + Extra Hold Tube(s) (06/07/2018909) + + + + ---+ | Component | Value | Ref Range | Performed At | + + + + ---+ | Extra Tube | DrawnComment: Performed | | [facility] | | | by [facility] [address], | | [facility] | | | [place] [address] | | MEDICAL [facility]ENT[facility] R | | |Performed by [facility] [address], [place] [address] | | LABORATORY | | | | | [place]ERNER | + + + + ---+ + + | Specimen | + + | Blood | + + + + + + + | Performing | Address | City/State/Zipcode | Phone Number | | Organization | | | | + + + + + | [facility] | [address] | [place] [address] | | | [facility] | | | | | LABORATORY CERNER | | | | + + + + + CK Total (06/07/2018902) + + + + -----+ | Component | Value | Ref Range | Performed A t | + + + + -----+ | CK TOTAL | 84Comment: Performed by | 30 - 240 U/L | [facility] | | | [facility] [address], | | [facility] | | | [place] | | MEDICAL ARTIE [address] | | |Performed by [facility] [address], [place], [place] | | LABORATORY | | | | | CERN[place] | + + + + -----+ + + | Specimen | + + | Blood | + + + + + + + | Performing | Address | City/State/Zipcode | Phone Number | | Organization | | | | + + + + + | [facility] | [address] | [place], [place] | | | [facility] | | | | | LABORATORY [...] + + + + + | Specific [place] | 1.020 | 1.001 - 1.030 | [...] | [facility] | | | Performed by [facility] [address] | | [facility] | | | [address] [place], [place] | | [facility] | | | [address] | | LABORATORY | | | | [...] + + | [facility] | [address] | [place] [address] | | | [facility] | | | | | LABORATORY [...] | | | | First dose on [facility] 06/11/18 at 2100 | | PDT | [...] PDT | | | | | Starting [facility] 06/11/18 at 1635, | | | | [...] PDT | | | | | Starting [facility] 06/11/18 at 1118, | | | | [...] PDT | | | | | Starting [facility] 06/11/18 at 1635, | | | | [...] mg | | Surgical | | Starting [facility] 06/11/18 at 1118, | | 11:18 | [...] | | | | | Constipation, Starting [facility] 06/11/18 | | PDT | | | [...] mg | | Surgical | | Starting [facility] 06/11/18 at 1120, | | 11:20 | [...]
--- OUTSIDE RECORDS SUMMARY | ~2018-07-05 | XMS | Encounter Summary ---
Demographics + + + | Address | [address] | | | [place] [address] | + + + | Home Phone [...] Author | [facility] | | | and Ankitana | + + + | Organization | [facility] | | [...] Providers + +------+ + | Care Senior Director Of Strategy Name | Role | Phone | + [...] ID | | | | | [address] [place] | [id number] | | | | | [address] | | | | | | [phone] | | | +--------+ + + + [...] | | | | | | [place] [address] | | | | | | [phone] | | | | | | | | +--------+---------+ + + + as of this encounter Visit Diagnoses Not on filein this encounter"
--- OUTSIDE RECORDS SUMMARY | ~2018-07-05 | XMS | Encounter Summary ---
Demographics + + + | Address | [address] | | | [place] [address] | + + + | Home Phone [...] [facility] | | | and Ankitana | + + + | Organization | [facility] | | | and Ankitana [...] Team Providers + +------+ + | Care Puff Ironer Name | Role | Phone | + [...] [place] | | | | | | [address] | | | | | | [phone] | | | +--------+ + + + [...] | | | | | | [place] [address] | | | | | | [phone] | | | | | | | | +--------+---------+ + + + as of this encounter Visit Diagnoses Not on filein this encounter"
--- OUTSIDE RECORDS SUMMARY | ~2018-07-05 | XMS | Encounter Summary ---
Demographics + + + | Address | [address] | | | [place] [address] | + + + | Home Phone [...] Author | [facility] | | | and Ankitana | + + + | Organization | [facility] | | [...] Team Providers + +------+ + | Care Food And Nutrition Teacher Name | Role | Phone | [...] [place] | | | | | | [address] | | | | | | [phone] | | | +--------+ + + + [...] | | | | | | [place] [address] | | | | | | [phone] | | | | | | | | +--------+---------+ + + + as of this encounter Visit Diagnoses Not on filein this encounter"
[~2018-07-05 18:58] MED LIST: ROXICODONE15 MG PO
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
[2018-07-05] MEDS ORDERED: COREG6.25 MG PO (19:10)
[2018-07-05] MEDS ORDERED: ASPIRIN325 MG PO (19:10)
[2018-07-05] MEDS ORDERED: SEROQUEL100 MG PO (19:11)
[2018-07-05] MEDS ORDERED: LIPITOR40 MG PO (19:11)
[2018-07-05] MEDS ORDERED: ACID CONTROL150 MG PO (19:12)
[2018-07-05] MEDS ORDERED: FERROUSUL325 MG PO (19:12)
[2018-07-05] MEDS ORDERED: FLUOXETINE HCL20 MG PO (19:13)
[2018-07-05] MEDS ORDERED: IBU600 MG PO (19:13)
[2018-07-05] MEDS ORDERED: DOK100 MG PO (19:14)
[2018-07-05] MEDS ORDERED: ONDANSETRON ODT8 MG PO (19:14)
[2018-07-05] MEDS ORDERED: VISTARIL25 MG PO (19:15)
[2018-07-05] MEDS ORDERED: ATIVAN1 MG PO (22:02)
--- NOTE | 2018-07-06 18:25 | EKG ---
[facility] [address] [facility] [place] [address] Signed Sinus rhythm with premature supraventricular complexes Possible Left atrial enlargement Inferior-posterior infarct (cited on or before 16-JUN-2018) Abnormal ECG When compared with ECG of 16-JUN-2018 09:27, premature ventricular complexes are no longer present premature supraventricular complexes are now present Nonspecific T wave abnormality now evident in Inferior leads Confirmed by KATEY LINDSEY MD ([id number]) on 07/06/2018 6:24:58 PM Electronically Signed By: KATEY LINDSEY MD 07/06/18 1825 PATIENT NAME: ANNE MARIE GIL Electrocardiogram DATE OF : 53 PHYSICIAN: KATEY LINDSEY MD REPORT #: [id number] REPORT IS CONFIDENTIAL AND NOT TO BE RELEASED WITHOUT AUTHORIZATION
== END 2018-07-05 23:24 | disposition home or self-care (01) ==
LOC: ED 18:58
DX: R06.02 Shortness of breath (principal); I10 Essential (primary) hypertension; K21.9 Gastro-esophageal reflux disease without esophagitis; F17.200 Nicotine dependence, unspecified, uncomplicated; Z79.899 Other long term (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; Z79.82 Long term (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 of aspirin
CPT/HCPCS: 71045; 80053; 83735; 83880; 84484; 85025; 93005; 93010; 96374; 96375; 99285; J2060; J2405

== ENCOUNTER 2018-10-21 19:52 | Emergency (ER) | payer MEDICARE, OTHER ==
[~2018-10-21] VITALS: Ht 172.7 cm; Wt 77.1 kg
[~2018-10-21 19:52] MED LIST changes: +ACID CONTROL150 MG PO; +ALLERGY MEDICAT25 MG PO; +ASPIRIN325 MG PO; +ATIVAN1 MG PO; +CIPROFLOXACIN500 MG PO; +COREG6.25 MG PO; +DOK100 MG PO; +FERROUSUL325 MG PO; +FLUOXETINE HCL20 MG PO; +HYDROXYZINE HCL25 MG PO; +IBU600 MG PO; +K-TAB10 MEQ PO; +LASIX40 MG PO; +LIPITOR40 MG PO; +METRONIDAZOLE250 MG PO; +NICODERM CQ1 EAC1 TD; +ONDANSETRON ODT8 MG PO; +PROTONIX40 MG PO; +SEROQUEL100 MG PO; +TOPROL XL50 MG PO
[2018-10-21] MEDS ORDERED: LISINOPRIL10 MG PO (20:09)
[2018-10-21] MEDS ORDERED: METOPROLOL SUC100 MG PO (20:10)
[2018-10-21] MEDS ORDERED: METOPROLOL TAR100 MG PO (20:11)
[2018-10-21] MEDS ORDERED: ALENDRONATE SOD70 MG PO (20:12)
[2018-10-21] MEDS ORDERED: NORCO 5-325 TA1 EACH PO (20:13)
[2018-10-21] MEDS ORDERED: DICYCLOMINE HCL20 MG PO (23:47)
[2018-10-21] MEDS ORDERED: ONDANSETRON ODT4 MG SL (23:47)
== END 2018-10-22 00:25 | disposition home or self-care (01) ==
LOC: ED 19:52
DX: K52.9 Noninfective gastroenteritis and colitis, unspecified (principal); K21.9 Gastro-esophageal reflux disease without esophagitis; I10 Essential (primary) hypertension; F17.200 Nicotine dependence, unspecified, uncomplicated; Z79.899 Other long term (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; Z79.82 Long term (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 of aspirin
CPT/HCPCS: 74177; 80053; 81001; 83690; 85025; 96374; 96375; 99284-25; J2270; J2405; Q9967

== ENCOUNTER 2018-12-26 22:00 | Emergency (ER) | payer MEDICARE, OTHER ==
[~2018-12-26] VITALS: Ht 172.7 cm; Wt 72.6 kg
--- OUTSIDE RECORDS SUMMARY | ~2018-12-26 | XMS | Encounter Summary ---
Demographics + + + | Address | [address] | | | [place] [address] | + + + | Home Phone | | + + + | Preferred Language | Unknown | + + + | Marital Status | | + + + | Restorationism Affiliation | 1041 | + + + | Race | Unknown | + + + | Ethnic Group | Unknown | + + + Author + + + | Author | [facility] | | | and [facility] | + + + | Organization | [facility] | | | and [facility] | + + + | Address | Unknown | + + + | Phone | Unavailable | + + + Support + + +---------+ + | Name | Relationship | Address | Phone | + + +---------+ + | Lizz Cruz ECON | Unknown | | + + +---------+ + | Becky Cruz ECON | Unknown | | + + +---------+ + Care Team Providers + +------+ + | Care Rail Car Loader Name | Role | Phone | + +------+ + | Kiran Oneill DO | PCP | | + +------+ + Encounter Details +--------+ + + + + | Date | Type | Department | Care Team | Description | +--------+ + + + + | 11/25/ | Abstract | [facility] | [place], | | | 2018 | | CARDIOLOGY [address] | [place], [employer] [address] | | | | [place], | [place], | | | | | [place] [address] | [place] [address] | | | | | [phone] | [phone] | | | | | | | [...] + +---------+ + | Alcohol Use | Drinks/We | oz/Week | Comments | | | ek | | | + + +---------+ + | No | | | She does not drink alcohol. | + + +---------+ + + + + | Sex Assigned at | Date Recorded | | | | + + + | Not on file | | + + + as of this encounter Functional Status + [...] | | | + + + + as of this encounter Plan of Treatment +--------+ + + + + | Date | Type | Specialty | Care Team | Description | +--------+ + + + + | 01/06/ | Appointment | Sleep Medicine | Jessy Agarwal MD | | | 2018 | | | [address] | | | | | | [place] | | | | | | [address] | | | | | | | | +--------+ + + + + | 03/03/ | Office | Cardiology | Carol, | | | 2019 | Visit | | SALVATORE Moreno [address] | | | | | | [address] | | | | | | [place] [address] | | | | | | [phone] | | | | | | | | +--------+ + + + + as of this encounter Procedures + +--------+ + + + | Procedure Name | Priori | Date/Time | Associated Diagnosis | Comments | | | ty | | | | + +--------+ + + + | EXTERNAL LAB: BUN | Routin | 10/14/2018 | | Results for this | | | e | 0000 PST | | procedure are in the | | | | | | results section. | + +--------+ + + + | EXTERNAL LAB: | Routin | 10/14/2018 | | Results for this | | GLUCOSE | e | 0000 PST | | procedure are in the | | | | | | results section. | + +--------+ + + + | EXTERNAL LAB: ALT | Routin | 10/14/2018 | | Results for this | | | e | 0000 PST | | procedure are in the | | | | | | results section. | + +--------+ + + + | EXTERNAL LAB: AST | Routin | 10/14/2018 | | Results for this | | | e | 0000 PST | | procedure are in the | | | | | | results section. | + +--------+ + + + | EXTERNAL LAB: | Routin | 10/14/2018 | | Results for this | | ALKALINE PHOSPHATASE | e | 0000 PST | | procedure are in the | | | | | | results section. | + +--------+ + + + | EXTERNAL LAB: | Routin | 10/14/2018 | | Results for this | | BILIRUBIN, TOTAL | e | 0000 PST | | procedure are in the | | | | | | results section. | + +--------+ + + + | EXTERNAL LAB: | Routin | 10/14/2018 | | Results for this | | ALBUMIN | e | 0000 PST | | procedure are in the | | | | | | results section. | + +--------+ + + + | EXTERNAL LAB: | Routin | 10/14/2018 | | Results for this | | PROTEIN, TOTAL | e | 0000 PST | | procedure are in the | | | | | | results section. | + +--------+ + + + | EXTERNAL LAB: | Routin | 10/14/2018 | | Results for this | | CALCIUM | e | 0000 PST | | procedure are in the | | | | | | results section. | + +--------+ + + + | EXTERNAL LAB: CARBON | Routin | 10/14/2018 | | Results for this | | DIOXIDE | e | 0000 PST | | procedure are in the | | | | | | results section. | + +--------+ + + + | EXTERNAL LAB: | Routin | 10/14/2018 | | Results for this | | CHLORIDE | e | 0000 PST | | procedure are in the | | | | | | results section. | + +--------+ + + + | EXTERNAL LAB: | Routin | 10/14/2018 | | Results for this | | POTASSIUM | e | 0000 PST | | procedure are in the | | | | | | results section. | + +--------+ + + + | EXTERNAL LAB: SODIUM | Routin | 10/14/2018 | | Results for this | | | e | 0000 PST | | procedure are in the | | | | | | results section. | + +--------+ + + + | EXTERNAL LAB: CBC | Routin | 10/14/2018 | | Results for this | | | e | 0000 PST | | procedure are in the | | | | | | results section. | + +--------+ + + + | EXTERNAL LAB: EGFR | Routin | 10/14/2018 | | Results for this | | | e | 0000 PST | | procedure are in the | | | | | | results section. | + +--------+ + + + | EXTERNAL LAB: | Routin | 10/14/2018 | | Results for this | | CREATININE | e | 0000 PST | | procedure are in the | | | | | | results section. | + +--------+ + + + | CBC WITH | Routin | 10/14/2018 | | Results for this | | DIFFERENTIAL | e | 0000 PST | | procedure are in the | | | | | | results section. | + +--------+ + + + | COMPREHENSIVE | Routin | 10/14/2018 | | Results for this | | METABOLIC PANEL | e | 0000 PST | | procedure are in the | | | | | | results section. | + +--------+ + + + in this encounter Results Comprehensive Metabolic Panel (10/14/2018) + +-------+ + + | Component | Value | Ref Range | Performed At | + +-------+ + + | Bun/Creatinine | 22.6 | 11.0 - 35.0 | | + +-------+ + + | Albumin/Globulin | 18 | 14 - 22 | | | Ratio | | | | + +-------+ + + + + | Specimen | + + | Blood | + + External Lab: BUN (10/14/2018) + +-------+ + + | Component | Value | Ref Range | Performed At | + +-------+ + + | BUN, External | 22 | 8 - 25 | EXTERNAL LAB | + +-------+ + + + +---------+ + + | Performing | Address | City/State/Zipcode | Phone Number | | Organization | | | | + +---------+ + + | EXTERNAL LAB | | | | + +---------+ + + External Lab: Glucose (10/14/2018) + +-------+ + + | Component | Value | Ref Range | Performed At | + +-------+ + + | Glucose, External | 99 | 65 - 99 | EXTERNAL LAB | + +-------+ + + + +---------+ + + | Performing | Address | City/State/Zipcode | Phone Number | | Organization | | | | + +---------+ + + | EXTERNAL LAB | | | | + +---------+ + + External Lab: ALT (10/14/2018) + +-------+ + + | Component | Value | Ref Range | Performed At | + +-------+ + + | ALT, External | 16 | 0 - 41 | EXTERNAL LAB | + +-------+ + + + +---------+ + + | Performing | Address | City/State/Zipcode | Phone Number | | Organization | | | | + +---------+ + + | EXTERNAL LAB | | | | + +---------+ + + External Lab: AST (10/14/2018) + +-------+ + + | Component | Value | Ref Range | Performed At | + +-------+ + + | AST, External | 22 | 0 - 44 | EXTERNAL LAB | + +-------+ + + + +---------+ + + | Performing | Address | City/State/Zipcode | Phone Number | | Organization | | | | + +---------+ + + | EXTERNAL LAB | | | | + +---------+ + + External Lab: Alkaline Phosphatase (10/14/2018) + +---------+ + + | Component | Value | Ref Range | Performed At | + +---------+ + + | ALP, External | 171 (A) | 40 - 129 | EXTERNAL LAB | + +---------+ + + + +---------+ + + | Performing | Address | City/State/Zipcode | Phone Number | | Organization | | | | + +---------+ + + | EXTERNAL LAB | | | | + +---------+ + + External Lab: Bilirubin, Total (10/14/2018) + +-------+ + + | Component | Value | Ref Range | Performed At | + +-------+ + + | Bilirubin, Total, | 0.3 | 0.1 - 1.5 | EXTERNAL LAB | | External | | | | + +-------+ + + + +---------+ + + | Performing | Address | City/State/Zipcode | Phone Number | | Organization | | | | + +---------+ + + | EXTERNAL LAB | | | | + +---------+ + + External Lab: Albumin (10/14/2018) + +-------+ + + | Component | Value | Ref Range | Performed At | + +-------+ + + | Albumin, External | 4 | 3.5 - 5.2 | EXTERNAL LAB | + +-------+ + + + +---------+ + + | Performing | Address | City/State/Zipcode | Phone Number | | Organization | | | | + +---------+ + + | EXTERNAL LAB | | | | + +---------+ + + External Lab: Protein, Total (10/14/2018) + +-------+ + + | Component | Value | Ref Range | Performed At | + +-------+ + + | Protein, Total, | 7 | 6.2 - 8.2 | EXTERNAL LAB | | External | | | | + +-------+ + + + +---------+ + + | Performing | Address | City/State/Zipcode | Phone Number | | Organization | | | | + +---------+ + + | EXTERNAL LAB | | | | + +---------+ + + External Lab: Calcium (10/14/2018) + +-------+ + + | Component | Value | Ref Range | Performed At | + +-------+ + + | Calcium, External | 8.8 | 8.5 - 10.2 | EXTERNAL LAB | + +-------+ + + + +---------+ + + | Performing | Address | City/State/Zipcode | Phone Number | | Organization | | | | + +---------+ + + | EXTERNAL LAB | | | | + +---------+ + + External Lab: Carbon Dioxide (10/14/2018) + +--------+ + + | Component | Value | Ref Range | Performed At | + +--------+ + + | Carbon Dioxide, | 19 (A) | 22 - 29 | EXTERNAL LAB | | External | | | | + +--------+ + + + +---------+ + + | Performing | Address | City/State/Zipcode | Phone Number | | Organization | | | | + +---------+ + + | EXTERNAL LAB | | | | + +---------+ + + External Lab: Chloride (10/14/2018) + +-------+ + + | Component | Value | Ref Range | Performed At | + +-------+ + + | Chloride, External | 104 | 97 - 107 | EXTERNAL LAB | + +-------+ + + + +---------+ + + | Performing | Address | City/State/Zipcode | Phone Number | | Organization | | | | + +---------+ + + | EXTERNAL LAB | | | | + +---------+ + + External Lab: Potassium (10/14/2018) + +-------+ + + | Component | Value | Ref Range | Performed At | + +-------+ + + | Potassium, External | 5.1 | 3.5 - 5.3 | EXTERNAL LAB | + +-------+ + + + +---------+ + + | Performing | Address | City/State/Zipcode | Phone Number | | Organization | | | | + +---------+ + + | EXTERNAL LAB | | | | + +---------+ + + External Lab: Sodium (10/14/2018) + +-------+ + + | Component | Value | Ref Range | Performed At | + +-------+ + + | Sodium, External | 136 | 135 - 145 | EXTERNAL LAB | + +-------+ + + + +---------+ + + | Performing | Address | City/State/Zipcode | Phone Number | | Organization | | | | + +---------+ + + | EXTERNAL LAB | | | | + +---------+ + + External Lab: eGFR (10/14/2018) + +--------+ + + | Component | Value | Ref Range | Performed At | + +--------+ + + | eGFR, External | 59 (A) | 60 | EXTERNAL LAB | + +--------+ + + + + | Specimen | + + | Blood | + + + +---------+ + + | Performing | Address | City/State/Zipcode | Phone Number | | Organization | | | | + +---------+ + + | EXTERNAL LAB | | | | + +---------+ + + External Lab: Creatinine (10/14/2018) + +-------+ + + | Component | Value | Ref Range | Performed At | + +-------+ + + | Creatinine, External | 1 | 0.7 - 1.3 | EXTERNAL LAB | + +-------+ + + + + | Specimen | + + | Blood | + + + +---------+ + + | Performing | Address | City/State/Zipcode | Phone Number | | Organization | | | | + +---------+ + + | EXTERNAL LAB | | | | + +---------+ + + CBC with Differential (10/14/2018) + + + + + | Component | Value | Ref Range | Performed At | + + + + + | MCH | 26.3 (A) | 27.0 - 33.0 pg | | + + + + + | MCHC | 34.2 | 30.0 - 36.0 % | | + + + + + | BASOPHILS % | 0.5 | 2.0 % | | + + + + + + + | Specimen | + + | Blood | + + External Lab: CBC (10/14/2018) + + + + + | Component | Value | Ref Range | Performed At | + + + + + | WBC, External | 10.59 | 4 - 11 | EXTERNAL LAB | + + + + + | HGB, External | 11.75 (A) | 12 - 16 | EXTERNAL LAB | + + + + + | HCT, External | 34.35 (A) | 35 - 45 | EXTERNAL LAB | + + + + + | PLT, External | 318 | 140 - 440 | EXTERNAL LAB | + + + + + | Neutrophils %, | 74.30 (A) | 37 - 67 | EXTERNAL LAB | | External | | | | + + + + + | Lymphocytes %, | 15.20 (A) | 24 - 44 | EXTERNAL LAB | | External | | | | + + + + + | Monocytes %, | 7.30 | 5 - 12 | EXTERNAL LAB | | External | | | | + + + + + | Eosinophils %, | 2.7 | 0 - 5 | EXTERNAL LAB | | External | | | | + + + + + | Neutrophils, | 7.87 (A) | 1.3 - 7 | EXTERNAL LAB | | Absolute, External | | | | + + + + + | Lymphocytes, | 1.61 | 0.8 - 3.1 | EXTERNAL LAB | | Absolute, External | | | | + + + + + | Monocytes, Absolute, | 0.77 | 0.2 - 1 | EXTERNAL LAB | | External | | | | + + + + + | Eosinophils, | 0.29 | 0 - 0.8 | EXTERNAL LAB | | Absolute | | | | + + + + + | Basophils, Absolute | 0.05 | 0 - 0.6 | EXTERNAL LAB | + + + + + | RBC, External | 4.47 | 3.8 - 5.2 | EXTERNAL LAB | + + + + + | MCV, External | 77 (A) | 81 - 99 | EXTERNAL LAB | + + + + + | RDW, External | 18.14 (A) | 10.5 - 16 | EXTERNAL LAB | + + + + + + +---------+ + + | Performing | Address | City/State/Zipcode | Phone Number | | Organization | | | | + +---------+ + + | EXTERNAL LAB | | | | + +---------+ + + in this encounter Visit Diagnoses Not on filein this encounter"
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
--- OUTSIDE RECORDS SUMMARY | ~2018-12-26 | XMS | Encounter Summary ---
Demographics + + + | Address | [address] | | | [place] [address] | + + + | Home Phone | | + + + | Preferred Language | Unknown | + + + | Marital Status | | + + + | Lutheran Affiliation | 1041 | + + + | Race | Unknown | + + + | Ethnic Group | Unknown | + + + Author + + + | Author | [facility] | | | and Ankitana | + + + | Organization | [facility] | | | and Ankitana [...] Team Providers + +------+ + | Care Cake Press Operator Helper Name | Role | Phone | + +------+ + | Kiran Oneill DO | PCP | | + +------+ + Encounter Details +--------+ + + + + | Date | Type | Department | Care Team | Description | +--------+ + + + + | 09/30/ | Abstract | [facility] | Provider, | Cardiac arrest with | | 2018 | | CARDIOLOGY [address] | [address] | ventricular | | | | [place], | [address] | fibrillation (HCC) | | | | [place] [address] | [place] [address] | | | | | [phone] | | | +--------+ + + + [...] | | | | | | [place] [address] | | | | | | [phone] | | | | | | | | +--------+ + + + + as of this encounter Visit Diagnoses + + | Diagnosis | + + | Cardiac arrest with ventricular fibrillation (HCC) | + +"
--- OUTSIDE RECORDS SUMMARY | ~2018-12-26 | XMS | Encounter Summary ---
Demographics + + + | Address | [address] | | | [place] [address] | + + + | Home Phone | | + + + | Preferred Language | Unknown | + + + | Marital Status | | + + + | Mormon Affiliation | 1041 | + + + | Race | Unknown | + + + | Ethnic Group | Unknown | + + + Author + + + | Author | [facility] | | | and Ankitana | + + + | Organization | [facility] | | | and Ankitana [...] Team Providers + +------+ + | Care Discharge Rn Name | Role | Phone | + [...] | apnea, | [address] | [place] | | | | | unspecified | [address] [place] | [place], | | | | | type | [place], [place] | [place] [address] | | | | | Procedures | [address] | Phone: | | | | | [place] POLYSOM | Phone: | [phone] | | | | | 6/>YRS SLEEP | [phone] | Fax: | | | | | 4/> ADDL | Fax: | [phone] | | | | | SAJAN ATTND | [phone] | | | | | | [place] POLYSOM | | | | | | [...] | | | | | apnea) | [place] | [place] | | | | | | [place], | [address] Phone: | | | | | | [place] | [phone] | | | | | | [address] | Fax: | | | | | | Phone: | [phone] | | | | | | [phone] | | | | | | | Fax: | | | | | | | [phone] | | +--------+ + + + + + Encounter Details +--------+---------+ + + + | Date | Type | Department | Care Team | Description | +--------+---------+ + + + | 12/01/ | Office | [facility] | Jessy Agarwal MD | Sleep apnea, | | 2018 | Visit | SLEEP DISORDER [address] | [address] | unspecified type | | | | [place] | [place] | (Primary Dx) | | | | [place] [address] | [address] | | | | | [phone] | | | +--------+---------+ + + + [...] and wake time. They usually watch some Buxfer s eries. She usually goes to bed [...] marijuana(Indica) to help with her sleep. ? [place] Sleepiness Scale: 2 out of 24 ( [...] HISTORY Past Medical History: Diagnosis Date Acute [place] ([facility]) 2011 Anxiety Back pain Bipolar disorder (HCC) Community acquired pneumonia secondary to Haemophilus influenzae Coronary artery disease Depression Dyslipidemia Hepatitis C Heroin abuse ([facility]) Last use was 2011 Hip pain HTN (hypertension) Insomnia Ischemic cardiomyopathy Methamphetamine use ([facility]) 06/07/2018 She denies use and suggests that [...] Cor Angio; Surgeon: Shad Schuler MD; Location: [facility] CV LAB CARDIAC CATHERIZATION Right 06/09/2018 Procedure: CV LHC; Surgeon: Shad Schuler MD; Location: [facility] CV LAB CARDIAC CATHERIZATION Right 06/09/2018 Procedure: CV LV; Surgeon: Shad Schuler MD; Location: [facility] CV LAB CATARACT REMOVAL Left 08/13/2018 Procedure: LEFT EXTRACTION CATARACT WITH LENS IMPLANT; Surgeon: Seamus Richard MD; Loc ation: [facility] MAIN OR CATARACT REMOVAL Right 09/10/2018 Procedure: RIGHT EXTRACTION CATARACT WITH LENS IMPLANT; Surgeon: Seamus Richard MD; Lo cation: [facility] MAIN OR CORONARY ANGIOPLASTY WITH STENT PLACEMENT 05/11/2012 Percutaneous transluminal coronary angioplasty and stenting of the left circumflex with th rombectomy of the left circumflex CORONARY ARTERY BYPASS GRAFT N/A 06/11/2018 Procedure: CORONARY ARTERY BYPASS GRAFT X3 EV JU; Surgeon: Hemanth Webster MD; Loc ation: [facility] MAIN OR HYSTERECTOMY 1995 ALLERGIES [...] problems. discussed diagno sis via polysomnography / pin-kq-ptetcy sleep testing. she has been a smoker [...] this chart may have been created with [employer] voice recognition software. Occasi onal wrong-word or sound-alike substitutions may have occurred due to the inherent meyers itations of voice recognition software. Please read the chart carefully and recognize, using context, where these substitutions have occurred. Pam Sánchez, Finance And Administration Manager - 12/01/2018 1330 PSTFormatting of this note may be differen t from the original. 12/01/18 1300 Ramirez Depression Inventory-II Depression Score 16 - Mild depression Insomnia Severity Index Insomnia Severity Index 22 [place] Sleepiness Scale 1. Sitting and reading 0 [...] | | | | | [place], [place] | | | | | | [address] | | | | | | | | +--------+ + + + + | 03/03/ | Office | Cardiology | Carol, | | | 2018 | Visit | | SALVATORE Moreno [address] | | | | | | [place], | | | | | | [place] [address] | | | | | | [phone] | | | | | | | | +--------+ + + + + + +--------+ + + | Name | Priori | Associated Diagnoses | Order Schedule | | | ty | | | + +--------+ + + | * [facility] Sleep Center - AMB Referral | Routin | Sleep apnea, | Ordered: 12/01/2018 | | | e | unspecified type | | + +--------+ + + as of this encounter Visit Diagnoses + + | Diagnosis | + + | Sleep apnea, unspecified type - Primary | + +
--- OUTSIDE RECORDS SUMMARY | ~2018-12-26 | XMS | Encounter Summary ---
Demographics + + + | Address | [address] | | | [place] [address] | + + + | Home Phone [...] | [facility] | | | and Ankitana | + + + | Organization | [facility] [...] Team Providers + +------+ + | Care Marketing Operations Assistant Name | Role | Phone | [...] | | | | | apnea) | [place] | [place], [place] | | | | | | [place], | [address] Phone: | | | | | | [place] | [phone] | | | | | | [address] | Fax: | | | | | | Phone: | [phone] | | | | | | [phone] | | | | | | | Fax: | | | | | | | [phone] | | +--------+ + + + + + Reason for Visit + + + | Reason | Comments | + + + | Follow-up | | + + + | Congestive Heart | | | Failure | | + + + | Coronary Artery | | | Disease | | + + + | Hypertension | | + + + Encounter Details +--------+---------+ + + + | Date | Type | Department | Care Team | Description | +--------+---------+ + + + | 10/22/ | Office | [facility] | Carol, | Hypertension, | | 2018 | Visit | CARDIOLOGY [address] | SALVATORE Moreno [address] | unspecified type | | | | [place], | [place], | (Primary Dx); | | | | [place] [address] | [place] [address] | Ischemic | | | | [phone] | [phone] | cardiomyopathy; | | | | | | Chest [...] | | | | | heart disease); PATRICE | | | | | | (obstructive sleep | | | | | | apnea) | +--------+---------+ + + + Social History [...] + + + | Blood Pressure | 172/88 | 10/22/2018815 PST | + + + + | Pulse | 58 | 10/22/2018815 PST | + + + + | Temperature | - | - | + + + + | Respiratory Rate | 18 | 10/22/2018815 PST | + + + + | Oxygen Saturation | - | - | + + + + | Inhaled Oxygen | - | - | | Concentration | | | + + + + | Weight | 76.2 kg (167 lb 15.9 | 10/22/2018815 PST | | | oz) | | + + + + | Height | 172.7 cm (5' 8") | 10/22/2018815 PST | + + + + | Body Mass Index | 25.54 | 10/22/2018815 PST | + + + + in [...] of this encounter Instructions Patient Instructions - Tiffanie Medina ARNP - 10/22/2018 0830 PST1. Increase Metoprolol succinate 100 mg in the morning and 50 mg in the evening 2. check blood pressure and pulse twice daily for two weeks and return the log to our offic e. 3. Referral to sleep specialists for sleep apnea 4. Get echocardiogram done soon 5. Follow up in 2-4 weeks HFC in this encounter Progress Notes Tiffanie Medina ARNP - 10/22/2018 0830 PSTFormatting of this note may be different from the original. PATIENT NAME: Smitha Pichardo : 1955: AGE: 63 y.o. PRIMARY CARE: Kiran Oneill DO CC: OUTPATIENT HEART FAILURE FOLLOW UP VISIT Date of Service: 10/22/2018 HISTORY OF PRESENT ILLNESS: Smitha Pichardo is a 63 y.o. female with a history of coronary artery disease with isch emia cardiomyopathy, hypertension, hyperlipidemia, tobacco use and stage III chronic kidney disease. She is being seen today for follow up heart failure. She was last seen 10/01/[address] Laguna at which time The emergenc department increased he r Lisinopril to 20 mg daily. Since that time, she was seen in the emergency department last night 10/21/2018 for acute gastroenteritis (pain in her stomach) and high blood pressure. Francisco del valle had a CT scan of the abdominal and was given Zofran 4mg for nausea, Dicyclomine HCL 20 mg for cramping and they increased her lisinopril to 20 mg daily. Her energy level is slightly improved since her last visit. She has been having a hard time falling sleep and staying asleep at night. Her shortness of breath has been better, she has quit smoking and she is using the patches in this time period. Her leg swelling has been st able. Her blood pressure log is reviewed and shows blood pressure has been elevated at 172/9 0 mmHg and heart rate has been 55 beats per minute. There were a couple of readings in the 90's but she was having a lot of abdominal pain. Her weight log is reviewed and shows weigh t has been stable. She has been following a sodium restricted diet. She has not been followi ng a fluid restriction. Otherwise, she has no change in other cardiac symptoms. She has not had any chest pain or d iscomfort at rest or with exertion. She has dizziness with abdominal pain last night. She h as not noticed palpitations. She is able to sleep laying down at night without any symptoms of shortness of breath. MEDICAL, SURGICAL, AND PERSONAL HISTORY Past Medical, [...] chronic, stage II (GFR 60-89 ml/min) H/O AK (myocardial infarction) Hepatitis C Risk factors for [...] tablet Take 20 mg by mouth Daily. LORazepam (ATIVAN) 1 mg tablet Take 1 tablet by mouth every 6 hours as needed for Anxie ty. 20 tablet 0 metoprolol succinate (TOPROL-XL) 100 mg ER tablet Take 1 tablet by mouth Daily. 90 tabl et 3 pantoprazole (PROTONIX) 20 mg tablet Take 40 [...] ROS Review of Systems Constitutional: Negative for malaise/fatigue. Respiratory: Positive for shortness of breath (a little no changes ). Cardiovascular: Negative for chest pain, palpitations, orthopnea and leg swelling. Neurological: Positive for dizziness (last night ). Negative for weakness. Lightheadedness- No OBJECTIVE: PHYSICAL EXAM BP 172/88 | Pulse 58 | Resp 18 | Ht 1.727 m (5' 8") | Wt 76.2 kg (167 lb 15.9 oz) | BM I 25.54 kg/m Physical Exam Constitutional: She appears well-developed [...] No resp iratory distress. She has no decreased breath sounds. She has no wheezes. She has no rhonchi . She has no rales. Abdominal: Normal appearance, normal aorta and bowel sounds are normal. She exhibits no abd ominal bruit and no pulsatile midline mass. There is no hepatosplenomegaly. There is no tend erness. Musculoskeletal: She exhibits no edema. Neurological: She is alert. Gait (utilizing a [...] Abnormal ECG Confirmed by MARIANGEL WALTON MD ([id number]) on 10/01/2018 12:13:49 PM none done today LAB RESULTS reviewed during visit today primarily from [facility]: LIPID No results found for: CHOL, TRIG, [...] 08/13/2018 HCT 36.5 08/13/2018 PLT 350 08/13/2018 BNP Lab Results Component Value Date BNP 168 (H) 10/27/2016 BNP NULL 05/16/2012 BNP NULL 05/12/2012 LAST EJECTION FRACTION LVEF-TTE TRANSTHORACIC ECHO (%) Date Value 06/08/2018 45 LVEF-SPECT NUCLEAR STRESS/VIABILITY (%) Date Value 06/09/2018 32 LVEF-LVGRAM CARDIAC CATH (%) Date Value 06/09/2018 37 I reviewed records from [facility] for office visit on 10/01/2018 w hich is summarized in the HPI. RESULTS- I reviewed reports from [facility]: No results found. Above data and testing is reviewed this visit; testing below is historical data unless othe rwise specified. ASSESSMENT: 1. Coronary artery disease with ischemia cardiomyopathy A. History cardiac arrest post unknown stenting in 2011 at [facility] in [place] B. Echocardiogram 2D , M-mode, Doppler and [...] stenosis, there was no CC: By George Borussard MD and Slick Hernandez Echocardiogram on 01/13/14 [...] r ight ventricle size and function. By Mani Schneider [...] the inferior and lateral castillo from prior AK, mild destinee infarct ischemia. LARGE SEVERE inferior and Lateral AK. By Shad Schuler MD G. Left heart [...] unction. Trace TR, pulmonic valve normal Trace MS, visible portions of ascending aorta and a [...] fun ction unchanged after sternal closure. J. Today, 10/22/2018, patient has been having less episodes of dyspnea at rest a nd even on exertion. She has been walking 1 block at the time and feeling better while doing so. She denies any angina. She is in class II of the [place] [employer] functional class. Heart failure stage C. She has not had any fluid decompensation. 2. Hypertension A. Today, 10/22/2018, Blood pressure in office is elevated.. 3. Hyperlipidemia A. Patient is on lipitor 80 mg once a day 4. Tobacco use A. She smokes one cigarette a day. 5. Stage III chronic kidney disease A. eGFR on 08/13/18 is 56. PLAN: 1. She will have echocardiogram checked in [facility] 2. Increase Metoprolol XL 100 mg in the morning and 50 mg in the evening 3. check blood pressure and pulse twice daily for two weeks and return the log to our offic e. 4. She will be referred to sleep specialist for PATRICE 5. She is again counseled on importance of daily weight monitoring, signs and symptoms of w orsening congestive heart failure to notify our office with, and sodium restricted diet. Yusuf ght log and blood pressure log with written education is given to the patient. 6. She will follow up in 2-4 weeks for office visit, or sooner with concerns. She will hav e echocardiogram done prior to visit to follow up her ejection fraction. [facility]. Portions of this chart may have been created with G-mode voice recognition software. Occasi onal wrong-word or sound-alike substitutions may have occurred due to the inherent meyers itations of voice recognition software. Please read the chart carefully and recognize, using context, where these substitutions have occurred. in this encounter Plan of Treatment +--------+ + + + + | Date | Type | Specialty | Care Team | Description | +--------+ + + + + | 01/06/ | Appointment | Sleep Medicine | Jessy Agarwal MD | | | 2018 | | | [address] | | | | | | [place] | | | | | | [id number] | | | | | | | | +--------+ + + + + | 03/03/ | Office | Cardiology | Carol, | | | 2018 | Visit | | SALVATORE Moreno [address] | | | | | | [place], | | | | | | [place] [address] | | | | | | [phone] | | | | | | | | +--------+ + + + + + +--------+ + + | Name | Priori | Associated Diagnoses | Order Schedule | | | ty | | | + +--------+ + + | * [facility] [place] Sleep Disorder - | Routin | PATRICE (obstructive | Ordered: 10/26/2018 | | AMB Referral | e | sleep apnea) | | + +--------+ + + as of this encounter Visit Diagnoses + + | Diagnosis | + + | Hypertension, unspecified type - Primary | + + | Ischemic cardiomyopathy | + + | Other specified forms of chronic ischemic heart disease | + + | Chest pain syndrome | + + | Chest pain, unspecified | + + | Cardiac LV ejection fraction 30-35% | + + | Other symptoms involving cardiovascular system | + + | Cardiac arrest with ventricular fibrillation (HCC) | + + | Mixed hyperlipidemia | + + | ASHD (arteriosclerotic heart disease) | + + | Coronary atherosclerosis of unspecified type of vessel, chilkat or graft | + + | PATRICE (obstructive sleep apnea) | + + | Obstructive sleep apnea (adult) (pediatric) | + +
--- OUTSIDE RECORDS SUMMARY | ~2018-12-26 | XMS | Encounter Summary ---
Demographics + + + | Address | [address] | | | [place] [address] | + + + | Home Phone | | + + + | Preferred Language | Unknown | + + + | Marital Status | | + + + | Buddhism Affiliation | 1041 | + + + | Race | Unknown | + + + | Ethnic Group | Unknown | + + + Author + + + | Author | [facility] | | | and Ankitana | + + + | Organization | [facility] [...] Team Providers + +------+ + | Care Liquid Loader Name | Role | Phone | [...] + + | 11/25/ | Office | [facility] | Carol, | Hypertension, | | 2019 | Visit | CARDIOLOGY [address] | SALVATORE Moreno [address] | unspecified type | | | | [place], | [place], | (Primary Dx); | | | | [place] [address] | [place] [address] | Ischemic | | | | [phone] | [phone] | cardiomyopathy; | | | | | [...] | Blood Pressure | 130/60 | 11/25/2018 1051 PST | + + + + | Pulse | 72 | 11/25/2018 1051 PST | + + + + | Temperature | - | - | + + + + | Respiratory Rate | 20 | 11/25/20181050 PST | + + + + | Oxygen Saturation | - | - | + + + + | Inhaled Oxygen | - | - | | Concentration | | | + + + + | Weight | 82 kg (180 lb 12.4 | 11/25/2018 105 PST | | | oz) | | + + + + | Height | 172.7 cm (5' 8") | 11/25/2018 1051 PST | + + + + | Body Mass Index | 27.49 | 11/25/2018 1051 PST | + + + + in [...] of this encounter Instructions Patient Instructions - Dayana Chan, Cnc Cutting Operator - 11/25/2018 1045 PST 1. Start taking lisinopril 20 mg twice daily by mouth to help with your blood pressure . 2. You will check your blood pressure and pulse twice daily for two weeks and return the lo g to our office. 3. You will need to go to get your labs (BMP) drawn at [facility] . 4. Please follow up in 2 - 3 months for office visit, or sooner with concerns. in this e ncounter Progress Notes Tiffanie Medina ARNP - 11/25/2018 1045 PSTFormatting of this note may be different [...] sodium in extra because of eating out wolof food for the last weeks Her energy [...] Abnormal ECG Confirmed by MARIANGEL WALTON MD ([id number]) on 10/01/2018 12:13:49 PM LAB RESULTS reviewed during visit today primarily from [facility]: LIPID No results found for: [...] unknown stenting in 2011 at [facility] in [place] B. Echocardiogram 2D , M-mode, Doppler and [...] unction. Trace TR, pulmonic valve normal Trace RI, visible portions of ascending aorta and a [...] II- Symptoms with moderate exertion of the [place] [employer] functional class. 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 Discussed the results of the echocardiogram. She has a appointment with [facility] in a few weeks. She is [...] cardiac rehabilitation and watch the sodium intake. Dayana Tuttle MA-C, am acting as a scribe on behalf of, and in the presence of SALVATORE Baker. - HOLLI Dinh 11/25/2018 12:03 Portions of this chart may have been created with [email or web address] voice recognition software. Occasi onal wrong-word or [...] 2018 | | | [address] | | | | | | [place], [place] | | | | | | [address] | | | | | | | | +--------+ + + + + | 03/03/ | Office | Cardiology | Carol, | | | 2018 | Visit | | SALVATORE Moreno [address] | | | | | | [place], | | | | | | [place] [address] | | | | | | [phone] | | | | | | | [...] Coronary atherosclerosis of unspecified type of vessel, platinum or graft | + +
--- OUTSIDE RECORDS SUMMARY | ~2018-12-26 | XMS | Encounter Summary ---
Demographics + + + | Address | [address] | | | [place] [address] | + + + | Home Phone [...] | Author | [facility] | | | and Ankitana | + + + | Organization | [facility] | | | and Ankitana [...] Team Providers + +------+ + | Care Monument Letterer Name | Role | Phone | + [...] | | CARDIOLOGY [address] | Tiffanie, HOSE CEMENTER [address] | | | | | [place], | [place], | | | | | [place] [address] | [place] [address] | | | | | [phone] | [phone] | | | | | | | [...] | | | | | | [place] [address] | | | | | | [phone] | | | | | | | [...]
--- OUTSIDE RECORDS SUMMARY | ~2018-12-26 | XMS | Encounter Summary ---
Demographics + + + | Address | [address] | | | [place] [address] | + + + | Home Phone [...] | [facility] | | | and Ankitana | + + + | Organization | [facility] | | [...] Team Providers + +------+ + | Care Pattern Grader Cutter Name | Role | Phone | [...] | | | [place] | [address] | [address] | | | | | CABG | [place] | [place], | | | | | Procedures | WAY | [place] | | | | | TAPE CALENDER - NO YH | [place], | [address] | | | | | COVERAGE | [place] [address] | Phone: | | | | | EXCEPT IN | Phone: | [phone] | | | | | [facility]IR [facility] | [phone] | Fax: | | | | | | Fax: | [phone] | | | | | | [phone] | | +--------+--------+ + + + + Encounter Details +--------+---------+ + + + | Date | Type | Department | Care Team | Description | +--------+---------+ + + + | 10/01/ | Office | [facility] [place] | Mariangel Siddiqi, | Chest pain syndrome | | 2018 | Visit | CARDIOLOGY [address] | [address] | (Primary Dx); ASHD | | | | [place], | [place], | (arteriosclerotic | | | | [place] [address] | [place] [address] | heart disease); | | | | [phone] | [phone] | Mixed hyperlipidemia | | | | [...] | Blood Pressure | 142/82 | 10/01/2018 1045 PST | + + + + | Pulse | 69 | 10/01/2018 1045 PST | + + + + | Temperature | - | - | + + + + | Respiratory Rate | 18 | 10/01/2018 1045 PST | + + + + | Oxygen Saturation | - | - | + + + + | Inhaled Oxygen | - | - | | Concentration | | | + + + + | Weight | 70.6 kg (155 lb 10.3 | 10/01/20181044 PST | | | oz) | | + + + + | Height | 172.7 cm (5' 8") | 10/01/20185 PST | + + + + | Body Mass Index | 23.67 | 10/01/20181044 PST | + + + + in [...] of this encounter Instructions Patient Instructions - Mercy Powers RN - 10/01/2018 1030 PST Increase Metoprolol to 100mg one time [...] take them with you to the lab. in this encounter Progress Notes Mariangel Siddiqi MD - 10/01/2018 1030 PSTFormatting of this note may be different from [place] original. PATIENT NAME: Smitha Pichardo : 1955: AGE: 63 y.o. REFERRED BY: Kiran Oneill PRIMARY CARE: Kiran Oneill DO NEW PATIENT OFFICE VISIT Date of Service: 10/01/18 [...] arrest when she was at home in [place]. Her daughter found her and called the advertising photographer. It took them about ten mintues for her to revive. She was doing prett y well between 2011 until recent when she went to [facility] in [place] on 06/08/18 because she was not feeling [...] Cor Angio; Surgeon: Shad Schuler MD; Location: [facility] CV LAB CARDIAC CATHERIZATION Right 06/09/2018 Procedure: CV LHC; Surgeon: Shad Schuler MD; Location: [facility] CV LAB CARDIAC CATHERIZATION Right 06/09/2018 Procedure: CV LV; Surgeon: Shad Schuler MD; Location: [facility] CV LAB CATARACT REMOVAL Left 08/13/2018 [...] JU; Surgeon: Hemanth Webster MD; Loc ation: [facility] MAIN OR HYSTERECTOMY 1995 Family History Problem [...] She lives with her daughter, Miriam, in [place]. She is on disability. She is a [...] arrest post unknown stenting in 2011 at [facility] in [place] B. Echocardiogram 2D , M-mode, Doppler and [...] ventri sarah size and function. By MD. Jose Anthony. [...] i nferior and lateral castillo from prior AK, mild destinee infarct ischemia. LARGE SEVERE inferior a nd Lateral AK. By Shad Schuler MD G. Left heart cath on 06/09/18 shows, severely calcified coronaries with severe three-vessel CAD including 60% distal left main, 90% ostial circumflex, 99% proximal circumflex, obtuse marginal 4 and 5 disease, ostial and proximal 40% LAD, 95% ostial septal maintenance of way foreman, 70% mid and distal LAD, 100% mid [...] Tr lolis TR, pulmonic valve normal Trace ND, visible portions of ascending aorta and arch [...] She is in a class II of [place] Heart Association functional class. There is no [...] 10. Follow up in three weeks with SAVLATORE Case on heart failure program. I, China De La Cruz, am acting as a scribe on behalf of, and in the presence of Mariangel gomez MD. I have reviewed and edited this note. China De La Cruz, Clinical Radiologist 10/01/2018 I, Mariangel Siddiqi MD, personally performed the services described in this documentation, as scribed in my presence and it is both accurate and complete. China De La Cruz, Clinical Radiologist 10:48 Electronically signed by: Mariangel Siddiqi MD [facility] 10/01/2018 Portions of this chart may have been created with [employer] voice recognition software. Occasi onal wrong-word or [...] | 2018 | | | [address] [facility] | | | | | | [place] | | | | | | [id number] | | | | | | | | +--------+ + + + + | 03/03/ | Office | Cardiology | Carol, | | | 2019 | Visit | | SALVATORE Moreno [address] | | | | | | [place], | | | | | | [place] [address] | | | | | | [phone] | | | | | | | | +--------+ + + + + + +--------+ + + | Name | Priori | Associated Diagnoses | Order Schedule | | | ty | | | + +--------+ + + | Lipid Panel | Routin | ASHD | Expected: | | | e | (arteriosclerotic | 12/30/2018, Expires: | | | | heart disease) | 10/01/2019 | | | | Mixed hyperlipidemia | | + +--------+ + + | Hepatic Function Panel | Routin | ASHD | Expected: | | | e | (arteriosclerotic | 12/30/2018, Expires: | | | | heart disease) | 10/01/2019 | | | | Mixed hyperlipidemia | | + +--------+ + + as of this encounter Procedures + +--------+ + + + | Procedure Name | Priori | Date/Time | Associated Diagnosis | Comments | | | ty | | | | + +--------+ + + + | ECG 12 LEAD | Routin | 10/01/2018 | Chest pain | Results for this | | | e | 1025 PST | syndrome | procedure are in the | | | | | | results section. | + +--------+ + + + in this encounter Results ECG 12 lead (10/01/2018 1025) + + + + + | Component | Value | Ref Range | Performed At | + + + + + | VENTRICULAR RATE EKG | 69 | BPM | [facility] | + + + + + | ATRIAL RATE | 69 | BPM | [facility] | + + + + + | P-R INTERVAL | 168 | ms | [facility] | + + + + + | QRS DURATION | 110 | ms | [facility] | + + + + + | Q-T INTERVAL | 448 | ms | [facility] | + + + + + | Q-T INTERVAL | 480 | ms | [facility] | | (CORRECTED) | | | | + + + + + | P WAVE AXIS | 67 | degrees | [facility] | + + + + + | QRS AXIS | -50 | degrees | [facility] | + + + + + | T AXIS | 69 | degrees | [facility] | + + + + + | INTERPRETATION TEXT | Normal sinus rhythmLeft | | [facility] | | | anterior fascicular | | | | | blockInferior infarct , | | | | | age undeterminedAbnormal | | | | | ECG Confirmed by | | | | | ISABELLE MOJICA, MARIANGEL | | | | | ([id number]) on 10/01/2018 | | | | | 12:13:49 PM | | | + + + + [...] + | Chest pain syndrome - Primary | + + | Chest pain, unspecified | + + | ASHD (arteriosclerotic heart disease) | + + | Coronary atherosclerosis of unspecified type of vessel, [place] or graft | + + | Mixed hyperlipidemia | + +
--- OUTSIDE RECORDS SUMMARY | ~2018-12-26 | XMS | Encounter Summary ---
Demographics + + + | Address | [address] | | | [place] [address] | + + + | Home Phone [...] | Author | [facility] | | | and Ankitana | + + + | Organization | [facility] [...] Team Providers + +------+ + | Care Bow Machine Operator Name | Role | Phone [...] [address] | | | | | [place], | [place], | | | | | [place] [address] | [place] [address] | | | | | [phone] | [phone] | | | | | | | [...] [place] | | | | | | [address] | | | | | | | | +--------+ + + + + | 03/03/ | Office | Cardiology | Carol, | | | 2018 | Visit | | SALVATORE Moreno [address] | | | | | | [place], | | | | | | [place] [address] | | | | | | [phone] | | | | | | | | +--------+ + + + + as of this encounter Visit Diagnoses Not on filein this encounter"
--- OUTSIDE RECORDS SUMMARY | ~2018-12-26 | XMS | Encounter Summary ---
Demographics + + + | Address | [address] | | | [place] [address] | + + + | Home Phone [...] + + + | Author | [facility] | | | and Ankitana | + + + | Organization | [facility] | [...] + +------+ + | Care Director Of Business Applications Name | Role | Phone | + [...] W | echocardiogram) | | | | [place], | [place], | | | | | [place] [address] | [place] [address] | | | | | [phone] | [phone] | | | | | | | [...] [place] | | | | | | [address] | | | | | | | | +--------+ + + + + | 03/03/ | Office | Cardiology | Carol, | | | 2019 | Visit | | SALVATORE Moreno [address] | | | | | | [place], | | | | | | [place] [address] | | | | | | [phone] | | | | | | | | +--------+ + + + + as of this encounter Visit Diagnoses Not on filein this encounter"
--- OUTSIDE RECORDS SUMMARY | ~2018-12-26 | XMS | Encounter Summary ---
Demographics + + + | Address | [address] | | | [place] [address] | + + + | Home Phone [...] [facility] | | | and Ankitana | + + + | Organization | [facility] | | | [...] Team Providers + +------+ + | Care Mailroom Associate Name | Role | Phone | [...] | | | [place] | [address] | [address] | | | | | CABG | [place] | [place], | | | | | Procedures | WAY | [place] | | | | | BANDAGE MAKER - NO YH | [place], | [address] | | | | | COVERAGE | [place] [address] | Phone: | | | | | EXCEPT IN | Phone: | [phone] | | | | | [facility] | [phone] | Fax: | | | | | | Fax: | [phone] | | | | | | [phone] | | +--------+--------+ + + + + [...] (Primary Dx); ASHD | | | | [address] [place], | [place], | (arteriosclerotic | | | | [place] [address] | [place] [address] | heart disease); | | | | [phone] | [phone] | Mixed hyperlipidemia | | | | [...] Her daughter found her and called the application architect. It took them about ten mintues for her to revive. She was doing prett y well between 2011 until recent when she went to [place] in [place] on 06/08/18 because she was not feeling [...] chronic, stage II (GFR 60-89 ml/min) H/O VT (myocardial infarction) Hepatitis C Risk factors for obstructive sleep apnea Cardiac arrest with ventricular fibrillation MEDICAL, SURGICAL, AND PERSONAL HISTORY Past Surgical History: Procedure Laterality Date CARDIAC CATHERIZATION 05/11/2012 intra-aortic balloon pump placement, 05/11/12 CARDIAC CATHERIZATION Right 06/09/2018 Procedure: CV Cor Angio; Surgeon: Shad Schuler MD; Location: [facility] CV LAB CARDIAC CATHERIZATION Right 06/09/2018 Procedure: CV LHC; Surgeon: Shad Schuler MD; Location: [facility] CV LAB CARDIAC CATHERIZATION Right 06/09/2018 Procedure: CV LV; Surgeon: Shad Schuler MD; Location: [facility] CV LAB CATARACT REMOVAL Left [...] She lives with her daughter, Miriam, in [place]. She is on disability. She is a [...] arrest post unknown stenting in 2011 at [facility] in [place] B. Echocardiogram 2D , M-mode, Doppler and [...] i nferior and lateral castillo from prior VT, mild destinee infarct ischemia. LARGE SEVERE inferior a nd Lateral VT. By Shad Schuler MD G. Left heart cath on 06/09/18 shows, severely calcified coronaries with severe three-vessel CAD including 60% distal left main, 90% ostial circumflex, 99% proximal circumflex, obtuse marginal 4 and 5 disease, ostial and proximal 40% LAD, 95% ostial septal linderman operator, 70% mid and distal LAD, 100% [...] Tr lolis TR, pulmonic valve normal Trace [place], visible portions of ascending aorta and arch [...] She is in a class II of [place] Heart Association functional class. There is no [...] and edited this note. China De La Curz, Script Worker 10/01/2018 I, Mariangel Siddiqi MD, personally performed the services described in this documentation, as scribed in my presence and it is both accurate and complete. China De La Cruz, Script Worker 10:48 Electronically signed by: Mariangel Siddiqi MD [facility] 10/01/2018 Portions of this chart may have been created with [employer] voice recognition software. Occasi onal wrong-word or [...] | 2018 | | | [address] [facility] | | | | | | [place] | | | | | | [id number] | | | | | | | | +--------+ + + + + | 03/03/ | Office | Cardiology | Carol, | | | 2019 | Visit | | SALVATORE Moreno [address] | | | | | | [address] [place], | | | | | | [place] [address] | | | | | | [phone] | | | | | | | [...] MOJICA, MARIANGEL | | | | | ([id number]) on 10/01/2018 | | | | | [...] Coronary atherosclerosis of unspecified type of vessel, [place] or graft | + + | Mixed hyperlipidemia | + +
--- OUTSIDE RECORDS SUMMARY | ~2018-12-26 | XMS | Encounter Summary ---
Demographics + + + | Address | [address] | | | [place] [address] | + + + | Home Phone [...] Author | [facility] | | | and Ankitana | + + + | Organization | [facility] [...] Team Providers + +------+ + | Care Retail Loss Prevention Officer Name | Role | Phone | + [...] [address] | | | | | [place], | [place], | | | | | [place] [address] | [place] [address] | | | | | [phone] | [phone] | | | | | | | [...] [place] | | | | | | [address] | | | | | | | | +--------+ + + + + | 03/03/ | Office | Cardiology | Carol, | | | 2018 | Visit | | SALVATORE Moreno [address] | | | | | | [place], | | | | | | [place] [address] | | | | | | [phone] | | | | | | | | +--------+ + + + + as of this encounter Visit Diagnoses Not on filein this encounter"
--- OUTSIDE RECORDS SUMMARY | ~2018-12-26 | XMS | Clinical Summary ---
Demographics + + + | Address | [address] | | | [place] [address] | + + + | Home Phone [...] Author | [facility] | | | and Ankitana | + + + | Organization | [facility] [...] Team Providers + +------+ + | Care Drug Coordinator Name | Role | Phone | [...] and | | lateral castillo from prior [place], mild destinee infarct ischemia. LARGE | | SEVERE inferior and Lateral CA. 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 | | Non STEMI June [...] + | 11/24/ | Telephone | | Carol | Testing (To see on | | [...] + | 10/22/ | Telephone | | Carol | Other | | 2018 | | | SALVATORE Moreno | | +--------+ + + + + | 10/01/ | Office | | Mariangel Siddiqi, | Chest pain syndrome | | 2017 | Visit | | MD | (Primary Dx); ASHD | | | | | | (arteriosclerotic | | | | | | heart disease); | | | | | | Mixed hyperlipidemia | +--------+ + + + + | 10/01/ | Telephone | | Mariangel Siddiqi, | Other (patient needs | | 2017 | | | MD | an echo also) | +--------+ + + + + | 09/30/ | Abstract | | Provider, | Cardiac arrest with | | 2017 | | | MD Blanca | ventricular | | | | | | fibrillation (HCC) | +--------+ + + + + from [...] + | Respiratory Rate | 16 | 12/01/20185 PST | + + + [...] 2018 | | | [address] [...] | | | | | | [place] [address] | | | | | | [phone] | | | | | | | [...] | + +--------+--------+ +--------+--------+--------+ | [facility] - | Generi | | GENESSE | | 09/16/ | AMGM-S | | [id number]: Qty: 2 | c | | BIOMEDICAL | | 2019 | D / / | | on 06/11/2018 by Eleanor, | | | - GNARIEL | | | | | Hemanth Cooper MD | | | | | | | + +--------+--------+ +--------+--------+--------+ | Lens Tecnis Preloaded Pcb 8.5 | Generi | Left: | MORENO | | 04/24/ | [id number] | | - [id number]: Qty: | c | Eye | MEDICAL | | 2018 | 0085 | | 1 on 08/13/2018 by Jose Manuel, | | | [employer] - | | | /[id number] | | Seamus Chance MD | | | [place] | | | [address] | | | | | | | | / | + +--------+--------+ +--------+--------+--------+ | Lens Tecnis Preloaded Pcb 8.5 | Generi | Right: | MORENO | | 01/31/ | [id number] | | - [id number]: Qty: | c | Eye | MEDICAL | | 2018 | 0085 | | 1 on 09/10/2018 by Jose Manuel, | | | [employer]ICS - | | | /[id number] | | Seamus Chance MD | | | [place] | | | [address] | | | | | | | [...] +--------+ + + + | EXTERNAL LAB: JUAN C | Routin | 10/14/2018 | | Results [...] Last 3 Months Results External Lab: NATASHA (10/14/2018) + +-------+ + + | Component [...] + + | Blood | + + ECG 12 lead (10/01/2018 1025) + + [...] P-R INTERVAL | 168 | ms | WAMT MUSE | + [...] Confirmed by | | | | | MARIANGEL SIDDIQI MD | | | | | ([id number]) on 10/01/2018 | | | | | [...] | | | + +---------+ + + from Last 3 Months Insurance + +--------+ +--------+ +---------+ | Payer | Benefi | Subscriber | Type | Phone | Address | | | t Plan | ID | | | | | | / | | | | | | | Group | | | | | + +--------+ +--------+ +---------+ | MEDICARE | MEDICA | [id number] | Medica | [phone] | | | | RE | | re | [phone] | | | | PART A | | | | | | | AND B | | | | | + +--------+ +--------+ +---------+ | DEPARTMENT OF | [place] | [id number] | Indemn | | | | CORRECTIONS | RE | | ity | | | + +--------+ +--------+ +---------+ | [place]ID [place] | MEDICA | [id number] | Medica | [phone] | | [...] Self | [birth year] | Home: | [address] | | | al/Fam | | 4 | [phone] | [place] [address] | | | daljit | | | [phone] | | + +--------+ +--------+ + + | DELIA SALE[employer] | 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/ | Home: | [address] | | | ate | | 1902 | [phone] | [place] [address] | | | | | | [phone] | | + +--------+ +--------+ + +
--- OUTSIDE RECORDS SUMMARY | ~2018-12-26 | XMS | Encounter Summary ---
Demographics + + + | Address | [address] | | | [place] [address] | + + + | Home Phone [...] | Author | [facility] | | | and Ankitana | + + + | Organization | [facility] | | | and Ankitana [...] Team Providers + +------+ + | Care Culinary Intern Name | Role | Phone | + +------+ + | Kiran Oneill DO | PCP | | + +------+ + Encounter Details +--------+ + + + + | Date | Type | Department | Care Team | Description | +--------+ + + + + | 09/30/ | Abstract | [facility] | Provider, | Cardiac arrest with | | 2018 | | CARDIOLOGY [address] | MD Blanca [address] | ventricular | | | | [place], | [address] | fibrillation (HCC) | | | | [place] [address] | [place] [address] | | | | | [phone] | | | +--------+ + + + [...] | | | | | | [place] [address] | | | | | | [phone] | | | | | | | | +--------+ + + + + as of this encounter Visit Diagnoses + + | Diagnosis | + + | Cardiac arrest with ventricular fibrillation (HCC) | + +"
--- OUTSIDE RECORDS SUMMARY | ~2018-12-26 | XMS | Encounter Summary ---
Demographics + + + | Address | [address] | | | [place] [address] | + + + | Home Phone [...] | Author | [facility] | | | and Ankitana | + + + | Organization | [facility] [...] Team Providers + +------+ + | Care Roll Tube Setter Name | Role | Phone | + [...] Congestive | MD Jorge | [address] | | | | | heart | [address] | [place], | | | | | failure, | [address] | [place] | | | | | unspecified | [place], | [address] | | | | | HF | [place] [address] | Phone: | | | | | chronicity, | Phone: | [phone] | | | | | unspecified | [phone] | Fax: | | | | | heart | Fax: | [phone] | | | | | failure type | [phone] | | | | | | (HCC) | | | | | | | Procedures | | | | | | | ECHO | | | | | | | Complete [place] | | | | | | | ECHO HEART | | | | | | | XTHORACIC,CO | | | | | | | MPLETE W | | | | | | | DOPPLER [place] | | | | | | | [...] + | 10/01/ | Telephone | [facility] | Jorge Siddiqi, | Other (patient needs | | 2018 | | CARDIOLOGY [address] | [address] [facility] | an echo also) | | | | [address] [place], | [facility] | | | | | [place] [address] | [place] [address] | | | | | [phone] | [phone] | | | | | | | [...] [place] | | | | | | [address] | | | | | | | | +--------+ + + + + | 03/03/ | Office | Cardiology | Carol, | | | 2018 | Visit | | SALVATORE Moreno [address] | | | | | | [place], | | | | | | [place] [address] | | | | | | [phone] | | | | | | | | +--------+ + + + + + +--------+ + + | Name | Priori | Associated Diagnoses | Order Schedule | | | ty | | | + +--------+ + + | ECHO Complete | Routin | Congestive heart | Expected: | | | e | failure, unspecified | 10/01/2018, Expires: | | | | HF chronicity, | 10/01/2019 | | | | unspecified heart | | | | | failure type (HCC) | | + +--------+ + + as of this encounter Visit Diagnoses + + | Diagnosis | + + | Congestive heart failure, unspecified HF chronicity, unspecified heart failure type | | (HCC) - Primary | + +"
--- OUTSIDE RECORDS SUMMARY | ~2018-12-26 | XMS | Encounter Summary ---
Demographics + + + | Address | [address] | | | [place] [address] | + + + | Home Phone [...] | Author | [facility] | | | and Ankitana | + + + | Organization | [facility] | | | and [...] Providers + +------+ + | Care Tube Coater Name | Role | Phone | + [...] Congestive | MD Jorge | [address] | | | | | heart | [address] | [place], | | | | | failure, | [address] | [place] | | | | | unspecified | [place], | [address] | | | | | HF | [place] [address] | Phone: | | | | | chronicity, | Phone: | [phone] | | | | | unspecified | [phone] | Fax: | | | | | heart | Fax: | [phone] | | | | | failure type | [phone] | | | | | | (HCC) | | | | | | | Procedures | | | | | | | ECHO | | | | | | | Complete [place] | | | | | | | ECHO HEART | | | | | | | XTHORACIC,CO | | | | | | | MPLETE W | | | | | | | DOPPLER [place] | | | | | | | [...] + + | 10/01/ | Telephone | [facility] | Jorge Siddiqi, | Other (patient needs | | 2018 | | CARDIOLOGY [address] | [address] [facility] | an echo also) | | | | [place], | [facility] | | | | | [place] [address] | [place] [address] | | | | | [phone] | [phone] | | | | | | | [...] [place] | | | | | | [address] | | | | | | | | +--------+ + + + + | 03/03/ | Office | Cardiology | Carol, | | | 2018 | Visit | | SALVATORE Moreno [address] | | | | | | [place], | | | | | | [place] [address] | | | | | | [phone] | | | | | | | [...]
--- OUTSIDE RECORDS SUMMARY | ~2018-12-26 | XMS | Encounter Summary ---
Demographics + + + | Address | [address] | | | [place] [address] | + + + | Home Phone [...] + | Author | [facility] | | | and Ankitana | + + + | Organization | [facility] | | [...] Team Providers + +------+ + | Care Skin Diving Teacher Name | Role | Phone | [...] + + | 11/25/ | Office | [facility] | Carol, | Hypertension, | | 2019 | Visit | CARDIOLOGY [address] | SALVATORE Moreno [address] | unspecified type | | | | [place], | [place], | (Primary Dx); | | | | [place] [address] | [place] [address] | Ischemic | | | | [phone] | [phone] | cardiomyopathy; | | | | | [...] encounter Instructions Patient Instructions - Dayana Chan, Book Coverer - 11/25/2018 1045 PST 1. Start taking lisinopril 20 mg twice daily by mouth to help with your blood pressure . 2. You will check your blood pressure and pulse twice daily for two weeks and return the lo g to our office. 3. You will need to go to get your labs (BMP) drawn at [facility] . 4. Please follow up in [...] sodium in extra because of eating out luxembourgish food for the last weeks Her energy [...] chronic, stage II (GFR 60-89 ml/min) H/O MT (myocardial infarction) Hepatitis C Risk factors for [...] Abnormal ECG Confirmed by MARIANGEL WALTON MD ([id number]) on 10/01/2018 12:13:49 PM LAB RESULTS reviewed during visit today primarily from [facility]: LIPID No results found for: [...] post unknown stenting in 2011 at [facility] in [place] B. Echocardiogram 2D , M-mode, Doppler and [...] the inferior and lateral castillo from prior MT, mild destinee infarct ischemia. LARGE SEVERE inferior and Lateral MT. By Shad Schuler MD G. Left heart [...] unction. Trace TR, pulmonic valve normal Trace [place], visible portions of ascending aorta and a [...] II- Symptoms with moderate exertion of the [place] Heart Association functional class. 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 Discussed the results of the echocardiogram. She has a appointment with [facility] in a few weeks. She [...] this chart may have been created with [employer] voice recognition software. Occasi onal wrong-word or [...] [place] | | | | | | [address] | | | | | | | | +--------+ + + + + | 03/03/ | Office | Cardiology | Carol, | | | 2018 | Visit | | SALVATORE Moreno [address] | | | | | | [place], | | | | | | [place] [address] | | | | | | [phone] | | | | | | | [...] Coronary atherosclerosis of unspecified type of vessel, [place] or graft | + +
--- OUTSIDE RECORDS SUMMARY | ~2018-12-26 | XMS | Encounter Summary ---
Demographics + + + | Address | [address] | | | [place] [address] | + + + | Home Phone [...] + | Author | [facility] | | | and Ankitana | + + + | Organization | [facility] | [...] Team Providers + +------+ + | Care Live Truck Technician Name | Role | Phone | [...] | | | | | apnea) | [place] | [place], [place] | | | | | | [place], | [address] Phone: | | | | | | [place] | [phone] | | | | | | [address] | Fax: | | | | | | Phone: | [phone] | | | | | | [phone] | | | | | | | Fax: | | | | | | | [phone] | | +--------+ + + + + [...] | unspecified type | | | | [place], | [place], | (Primary Dx); | | | | [place] [address] | [place] [address] | Ischemic | | | | [phone] | [phone] | cardiomyopathy; | | | | | [...] Abnormal ECG Confirmed by MARIANGEL WALTON MD ([id number]) on 10/01/2018 12:13:49 PM none done today LAB RESULTS reviewed during visit today primarily from [facility]: LIPID No results found for: CHOL, [...] Value 06/09/2018 37 I reviewed records from [facility] for office visit on 10/01/2018 w hich is summarized in the HPI. RESULTS- I reviewed reports from [facility]: No results found. Above data and testing is reviewed this visit; testing below is historical data unless othe rwise specified. ASSESSMENT: 1. Coronary artery disease with ischemia cardiomyopathy A. History cardiac arrest post unknown stenting in 2011 at [facility] in [place] B. Echocardiogram 2D , M-mode, Doppler and [...] the inferior and lateral castillo from prior [place], mild destinee infarct ischemia. LARGE SEVERE inferior and Lateral [place]. By Shad Schuler MD G. [...] unction. Trace TR, pulmonic valve normal Trace [place], visible portions of ascending aorta and a [...] She is in class II of the [place] Heart Association functional class. Heart failure stage [...] 1. She will have echocardiogram checked in [facility] 2. Increase Metoprolol XL 100 [...] ejection fraction. She also needs [facility]. Portions of this chart may have been created with [employer] voice recognition software. Occasi onal wrong-word or [...] [place] | | | | | | [address] | | | | | | | | +--------+ + + + + | 03/03/ | Office | Cardiology | Carol, | | | 2018 | Visit | | SALVATORE Moreno [address] | | | | | | [place], | | | | | | [place] [address] | | | | | | [phone] | | | | | | | [...] Coronary atherosclerosis of unspecified type of vessel, hopi or graft | + + | PATRICE (obstructive sleep apnea) | + + | Obstructive sleep apnea (adult) (pediatric) | + +
--- OUTSIDE RECORDS SUMMARY | ~2018-12-26 | XMS | Clinical Summary ---
Demographics + + + | Address | [address] | | | [place] [address] | + + + | Home Phone [...] Author | [facility] | | | and Ankitana | + + + | Organization | [facility] [...] Team Providers + +------+ + | Care Civil Defense Director Name | Role | Phone | [...] and | | lateral castillo from prior [place], mild destinee infarct ischemia. LARGE | | SEVERE inferior and Lateral DC. By Shad Schuler MD Left heart | | cath on 06/09/18 shows, severely calcified coronaries with severe | | three-vessel CAD including 60% distal left main, 90% ostial | | circumflex, 99% proximal circumflex, obtuse marginal 4 and 5 | | disease, ostial and proximal 40% LAD, 95% ostial septal | | french professor, 70% mid and distal LAD, 100% mid [...] TR, pulmonic valve normal | | Trace [place], visible portions of ascending aorta [...] + + | Heroin dependence ([facility]) | 02/22/2015 | + + [...] | GILDARDO (acute kidney injury) ([facility]) | 02/22/2015 | + + [...] + + | Overview: Large Inferior posterior DC March 2012. Non STEMI | | June [...] + + + + + | H/O DC (myocardial infarction) | 10/06/2011 | + + + + + | Overview: Large Inferior posterior DC March 2012. | | Non STEMI June [...] | | | | | | [place] [address] | | | | | | [phone] | | | | | | | [...] + +--------+--------+ +--------+--------+--------+ | [facility] - | Generi | | GENESSE | | 09/16/ | AMGM-S | | [id number]: Qty: 2 | c | | BIOMEDICAL | | 2019 | D / / | | on 06/11/2018 by Eleanor, | | | - GNARIEL | | | | | Hemanth Cooper MD | | | | | | | + +--------+--------+ +--------+--------+--------+ | Lens Tecnis Preloaded Pcb 8.5 | Generi | Left: | MORENO | | 04/24/ | [id number] | | - [id number]: Qty: | c | Eye | MEDICAL | | 2018 | 0085 | | 1 on 08/13/2018 by Jose Manuel, | | | [employer] - | | | /[id number] | | Seamus Chance MD | | | [place] | | | [address] | | | | | | | | / | + +--------+--------+ +--------+--------+--------+ | Lens Tecnis Preloaded Pcb 8.5 | Generi | Right: | MORENO | | 01/31/ | [id number] | | - [id number]: Qty: | c | Eye | MEDICAL | | 2018 | 0085 | | 1 on 09/10/2018 by Jose Manuel, | | | [employer]ICS - | | | /[id number] | | Seamus Chance MD | | | [place] | | | [address] | | | | | | | [...] SIDDIQI MD | | | | | ([id number]) on 10/01/2018 | | | | | [...] +--------+ +---------+ | MEDICARE | MEDICA | [id number] | Medica | [phone] | | | | RE | | re | [phone] | | | | PART A | | | | | | | AND B | | | | | + +--------+ +--------+ +---------+ | DEPARTMENT OF | [employer] | [id number] | Indemn | | | | CORRECTIONS | RE | | ity | | | + +--------+ +--------+ +---------+ | MEDICAID [place] | MEDICA | [id number] | Medica | [phone] | | [...] Self | [birth year] | Home: | [address] | | | al/Fam | | 4 | [phone] | [place] [address] | | | daljit | | | [phone] | | + +--------+ +--------+ + + | DLEIA SALEH | 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/ | Home: | [address] | | | ate | | [phone] | [phone] | [place] [address] | | | | | | [address] | | + +--------+ +--------+ + +
--- OUTSIDE RECORDS SUMMARY | ~2018-12-26 | XMS | Encounter Summary ---
Demographics + + + | Address | [address] | | | [place] [address] | + + + | Home Phone | | + + + | Preferred Language | Unknown | + + + | Marital Status | | + + + | Worship Affiliation | [phone] | + + + | Race | Unknown | + + + | Ethnic Group | Unknown | + + + Author + + + | Author | [facility] | | | and Ankitana | + + + | Organization | [facility] | [...] Team Providers + +------+ + | Care Application Consultant Name | Role | Phone | [...] W | echocardiogram) | | | | [place], | [place], | | | | | [place] [address] | [place] [address] | | | | | [phone] | [phone] | | | | | | | [...] [place] | | | | | | [address] | | | | | | | | +--------+ + + + + | 03/03/ | Office | Cardiology | Carol, | | | 2019 | Visit | | SALVATORE Moreno [address] | | | | | | [place], | | | | | | [place] [address] | | | | | | [phone] | | | | | | | | +--------+ + + + + as of this encounter Visit Diagnoses Not on filein this encounter"
[~2018-12-26 22:00] MED LIST changes: +ALENDRONATE SOD70 MG PO; +DICYCLOMINE HCL20 MG PO; +LISINOPRIL10 MG PO; +METOPROLOL SUC100 MG PO; +METOPROLOL TAR100 MG PO; +NORCO 5-325 TA1 EACH PO; +ONDANSETRON ODT4 MG SL
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
[2018-12-27] MEDS ORDERED: NORCO 5-325 TA1 EACH PO (00:13)
[2018-12-27] MEDS ORDERED: ZOFRAN4 MG PO (00:13)
--- NOTE | 2018-12-27 14:17 | EKG ---
[facility] [address] [facility] [place] [address] Signed Normal sinus rhythm Possible Left atrial enlargement Inferior infarct (cited on or before 16-JUN-2018) Abnormal ECG When compared with ECG of 11-JUL-2018 13:29, Sinus rhythm has replaced Atrial flutter Vent. rate has decreased BY 61 BPM T wave inversion no longer evident in Anterior leads Confirmed by WOOD YANG MD ([id number]) on 12/27/2018 2:17:18 PM Electronically Signed By: WOOD YANG MD 12/27/18 1417 PATIENT NAME: ANNE MARIE GIL Electrocardiogram DATE OF : 53 PHYSICIAN: WOOD YANG MD REPORT #: [id number] REPORT IS CONFIDENTIAL AND NOT TO BE RELEASED WITHOUT AUTHORIZATION
== END 2018-12-27 00:38 | disposition home or self-care (01) ==
LOC: ED 22:00
DX: K52.9 Noninfective gastroenteritis and colitis, unspecified (principal); I25.10 Atherosclerotic heart disease of native coronary artery without angina pectoris; I10 Essential (primary) hypertension; K21.9 Gastro-esophageal reflux disease without esophagitis; I25.5 Ischemic cardiomyopathy; Z95.1 Presence of aortocoronary bypass graft; F17.200 Nicotine dependence, unspecified, uncomplicated; Z95.5 Presence of coronary angioplasty implant and graft; Z79.82 Long term (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 of aspirin; Z79.899 Other long term (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
CPT/HCPCS: 74177; 80053; 81001; 83690; 85025; 93005; 93010; 96361; 99284-25; J1170; J2405; J7040; Q9967

== ENCOUNTER 2018-12-31 11:52 | Emergency (ER) | payer MEDICARE, OTHER ==
[~2018-12-31] VITALS: Ht 172.7 cm; Wt 72.6 kg
--- OUTSIDE RECORDS SUMMARY | ~2018-12-31 | XMS | Encounter Summary ---
Demographics + + + | Address | [address] | | | [place] [address] | + + + | Home Phone | | + + + | Preferred Language | Unknown | + + + | Marital Status | | + + + | Confucianist Affiliation | [id number] | + + + | Race | Unknown | + + + | Ethnic Group | Unknown | + + + Author + + + | Author | [facility] | | | and Ankitana | + + + | Organization | [facility] | | | and Ankitana | [...] Team Providers + +------+ + | Care Market Research Specialist Name | Role | Phone | + +------+ + | Kiran Oneill DO | PCP | | + +------+ + Reason for Visit +--------+ + | Reason | Comments | +--------+ + | Other | | +--------+ + Encounter Details +--------+ + + + + | Date | Type | Department | Care Team | Description | +--------+ + + + + | 10/22/ | Telephone | [facility] [place] | Carol, | Other | | 2019 | | CARDIOLOGY [address] | Tiff[address] | | | | | [place], | [place], | | | | | [place] [address] | [place] [address] | | | | | [phone] | [phone] | | | | | | | [...] | Jessy Agarwal MD | | | 2019 | | | [address] | | | | | | [place] | | | | | | [id number] | | | | | | | | +--------+ + + + + | 03/03/ | Office | Cardiology | Carol, | | | 2018 | Visit | | SALVATORE Moreno [address] | | | | | | [place], | | | | | | [place] [address] | | | | | | [phone] | | | | | | | | +--------+ + + + + as of this encounter Visit Diagnoses Not on filein this encounter"
--- OUTSIDE RECORDS SUMMARY | ~2018-12-31 | XMS | Encounter Summary ---
Demographics + + + | Address | [address] | | | [place] [address] | + + + | Home Phone [...] | [facility] | | | and Ankitana | + + + | Organization | [facility] | | | and Ankitana | [...] Team Providers + +------+ + | Care Strike Off Machine Operator Name | Role | Phone [...] + + | 11/25/ | Office | [facility] | Carol, | Hypertension, | | 2019 | Visit | CARDIOLOGY [address] | SALVATORE Moreno [address] | unspecified type | | | | [place], | [place], | (Primary Dx); | | | | [place] [address] | [place] [address] | Ischemic | | | | [phone] | [phone] | cardiomyopathy; | | | | | [...] encounter Instructions Patient Instructions - Dayana Chan, Diesel Power Mechanic - 11/25/2018 1045 PST 1. Start taking lisinopril 20 mg twice daily by mouth to help with your blood pressure . 2. You will check your blood pressure and pulse twice daily for two weeks and return the lo g to our office. 3. You will need to go to get your labs (BMP) drawn at [facility] . 4. Please follow up in 2 [...] sodium in extra because of eating out kiswahili food for the last weeks Her energy [...] chronic, stage II (GFR 60-89 ml/min) H/O [place] (myocardial infarction) Hepatitis C Risk factors for [...] Abnormal ECG Confirmed by MARIANGEL WALTON MD ([id number]) on 10/01/2018 12:13:49 PM LAB RESULTS reviewed during visit today primarily from [facility]: LIPID No results found [...] unknown stenting in [address] [facility] in [place] B. Echocardiogram 2D , M-mode, Doppler and [...] the inferior and lateral castillo from prior [place], mild destinee infarct ischemia. LARGE SEVERE inferior and Lateral NH. By Shad Schuler MD G. Left heart [...] unction. Trace TR, pulmonic valve normal Trace [place], visible portions of ascending aorta and a [...] II- Symptoms with moderate exertion of the [place] Heart [employer] functional class. 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 Discussed the results of the echocardiogram. She has a appointment with [facility] in a few weeks. She [...] this chart may have been created with [employer] voice recognition software. Occasi onal wrong-word or [...] [place] | | | | | | [address] | | | | | | | | +--------+ + + + + | 03/03/ | Office | Cardiology | Carol, | | | 2018 | Visit | | SALVATORE Moreno [address] | | | | | | [place], | | | | | | [place] [address] | | | | | | [phone] | | | | | | | [...] Coronary atherosclerosis of unspecified type of vessel, [place] or graft | + +
--- OUTSIDE RECORDS SUMMARY | ~2018-12-31 | XMS | Encounter Summary ---
Demographics + + + | Address | [address] | | | [place] [address] | + + + | Home Phone [...] | Author | [facility] | | | and Ankitana | + + + | Organization | [facility] [...] Team Providers + +------+ + | Care Sketch Liner Name | Role | Phone | + +------+ + | Kiran Oneill DO | PCP | | + +------+ + Reason for Visit +---------+ + | Reason | Comments | +---------+ + | Testing | To see on echocardiogram | +---------+ + Encounter Details +--------+ + + + + | Date | Type | Department | Care Team | Description | +--------+ + + + + | 11/24/ | Telephone | [facility] [place] | Carol, | Testing (To see on | | 2018 | | [facility] [address] | [address] More[address] | echocardiogram) | | | | [place], | [place], | | | | | [place] [address] | [place] [address] | | | | | [phone] | [phone] | | | | | | | [...] 2019 | | | [address] | | | | | | [place] | | | | | | [address] | | | | | | | | +--------+ + + + + | 03/03/ | Office | Cardiology | Carol, | | | 2019 | Visit | | [address]VATORE Moreno [address] | | | | | | [place], | | | | | | [place] [address] | | | | | | [phone] | | | | | | | | +--------+ + + + + as of this encounter Visit Diagnoses Not on filein this encounter"
--- OUTSIDE RECORDS SUMMARY | ~2018-12-31 | XMS | Clinical Summary ---
Demographics + + + | Address | [address] | | | [place] [address] | + + + | Home Phone [...] + | Author | [facility] | | | and Ankitana | + + + | Organization | [facility] | | | and Ankitana [...] Team Providers + +------+ + | Care Vascular Physician Name | Role | Phone | + +------+ + | Kiran Oneill DO | PP | | + +------+ + Allergies No Known Allergies Current Medications + + +---------+---------+------+------+-------+ | Prescription | Sig. | Disp. | Refills | Star | End | Statu | | | | | | t | Date | s | | | | | | Date | | | + + +---------+---------+------+------+-------+ | FLUoxetine | Take 20 mg by mouth | | | | | Activ | | (PROZAC) 20 mg | Daily. | | | | | e | | capsule | | | | | | | + + +---------+---------+------+------+-------+ | QUEtiapine | Take 100 mg by mouth | | | | | Activ | | (SEROQUEL) 100 mg | nightly. | | | | | e | | tablet | | | | | | | + + +---------+---------+------+------+-------+ | calcium-vitamin D | Take 2 tablets by | 90 | 3 | 11/2 | | Activ | | (OSCAL) 500 mg-200 | mouth 3 times daily | tablet | | 2/20 | | e | | units per tablet | (with meals). | | | 16 | | | + + +---------+---------+------+------+-------+ | Polysaccharide | Take 1 capsule by | 90 | 2 | 11/2 | | Activ | | Iron Complex 50 MG | mouth 3 times daily | capsule | | 2/20 | | e | | CAPS | (with meals). | | | 16 | | | + + +---------+---------+------+------+-------+ | ferrous sulfate | Take 1 tablet by | 60 | 0 | 09/1 | | Activ | | 325 mg tablet | mouth 2 times daily | tablet | | 0/20 | | e | | | (with breakfast & | | | 18 | | | | | dinner). | | | | | | + + +---------+---------+------+------+-------+ | LORazepam (ATIVAN) | Take 1 tablet by | 20 | 0 | 09/1 | | Activ | | 1 mg tablet | mouth every 6 hours | tablet | | 0/20 | | e | | | as needed for | | | 18 | | | | | Anxiety. | | | | | | + + +---------+---------+------+------+-------+ | pantoprazole | Take 40 mg by mouth | | | | | Activ | | (PROTONIX) 20 mg | every morning | | | | | e | | tablet | (before breakfast). | | | | | | + + +---------+---------+------+------+-------+ | aspirin 81 mg EC | Take 81 mg by mouth | | | | | Activ | | tablet | Daily. | | | | | e | + + +---------+---------+------+------+-------+ | atorvaSTATin | Take 1 tablet by [...] | | | | | + + +---------+---------+------+------+-------+ | acetaminophen | Take 500 mg by mouth | | | | | Activ | | (TYLENOL) 500 mg | every 6 hours as | | | | | e | | tablet | needed for Pain. | | | | | | + + +---------+---------+------+------+-------+ | lisinopril | Take 1 tablet by | 60 | 11 | 02/2 | | Activ | | (PRINIVIL, ZESTRIL) | mouth 2 times daily. | tablet | | 0/20 | | e | | 20 mg tablet | | | | 19 | | | + + +---------+---------+------+------+-------+ | metoprolol | Take 1.5 tablets by [...] | | | | | + + +---------+---------+------+------+-------+ Active Problems + + + | Problem | Noted Date | + + + | Cardiac arrest with ventricular fibrillation (HCC) | 09/30/2018 | + + + + [...] and | | lateral castillo from prior [place], mild destinee infarct ischemia. LARGE | | SEVERE inferior and Lateral DE. 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 Non STEMI | | June [...] + + + + + | H/O DE (myocardial infarction) | 10/06/2011 | + + + + + | Overview: Large Inferior posterior DE March 2012. | | Non STEMI June [...] | +--------+ + + + + | 12/01/ | Office | | Jessy Agarwal MD | Sleep apnea, | | 2018 | Visit | | | unspecified type | | | | | | (Primary Dx) | +--------+ + + + + | 11/25/ | Office | | Carol, | Hypertension, | | 2018 | Visit | | SALVATORE Moreno | unspecified type | | | | | | (Primary Dx); | | | | | | Ischemic | | | | | | cardiomyopathy; | | | | | | Mixed | | | | | | hyperlipidemia; ASHD | | | | | | (arteriosclerotic | | | | | | heart disease) | +--------+ + + + + | 11/25/ | Abstract | | Carol, | | | 2018 | | | SALVATORE Moreno | | +--------+ + + + + | 11/24/ | Telephone | | Carol, | Testing (To see on | | 2018 | | | SALVATORE Moreno | echocardiogram) | +--------+ + + + + | 10/22/ | Office | | Carol, | Hypertension, | | 2018 | Visit | | SALVATORE Moreno | unspecified type | | | | | | (Primary Dx); | | | | | | Ischemic | | | | | | [...] | | | | | apnea) | +--------+ + + + + | 10/22/ | Telephone | | Carol, | Other | | 2018 | | | SALVATORE [...] + | Blood Pressure | 140/80 | 12/01/20185 PST | + + + + | Pulse | 73 | 12/01/20185 PST | + + + + | Temperature | 36.1 C (97 F) | 09/10/2018 1520 PST | + + + + | Respiratory [...] | Body Mass Index | 28.18 | 12/01/20181314 PST | + + + + Plan of Treatment +--------+ + + + + | Date | Type | Specialty | Care Team | Description | +--------+ + + + + | 01/06/ | Appointment | | Jessy Agarwal MD | | | 2019 | | | [address] | | | | | | [place] | | | | | | [id number] | | | | | | | | +--------+ + + + + | 03/03/ | Office | | Carol, | | | 2018 | Visit | | SALVATORE Moreno [address] | | | | | | [place] | | | | | | [place] [address] | | | | | | [phone] | | | | | | | | +--------+ + + + + + + + [...] + + + + | Vaccine: | Completed | 06/18/2015 | | | Pneumococcal 19-64 | | | | | (PPSV23 only) Medium | | | | | Risk | | | | + + + [...] fier | | / Lot | + +--------+--------+ +--------+--------+--------+ | Marker Grft [facility] - | Generi | | GENESSE | | 09/16/ | AMGM-S | | [id number]: Qty: 2 | c | | BIOMEDICAL | | 2020 | D / / | | on 06/11/2018 by Eleanor, | | | - GNES | | | | | Hemanth Cooper MD | | | | | | | + +--------+--------+ +--------+--------+--------+ | Lens Tecnis Preloaded Pcb 8.5 | Generi | Left: | MORENO | | 04/24/ | [id number] | | - [id number]: Qty: | c | Eye | MEDICAL | | 2019 | [id number] | | 1 on 08/13/2018 by Richard, | | | [employer] - | | | /[id number] | | Seamus Chance MD | | | [place] | | | [address] | | | | | | | | / | + +--------+--------+ +--------+--------+--------+ | Lens Tecnis Preloaded Pcb 8.5 | Generi | Right: | MORENO | | 01/31/ | [id number] | | - [id number]: Qty: | c | Eye | MEDICAL | | 2019 | 0085 | | 1 on 09/10/2018 by Jose Manuel, | | | [employer] - | | | /[id number] | | Seamus Chance MD | | | [place] | | | [address] | | | | | | | | /N/A | + +--------+--------+ +--------+--------+--------+ Procedures + +--------+ [...] +--------+ + + + | EXTERNAL LAB: ATUL | Routin | 10/14/2018 | | Results for this | | | e | 0000 PST | | procedure are in the | | | | | | results section. | + +--------+ + + + from Last 3 Months Results External Lab: BUN (10/14/2018) + +-------+ + [...] | + +---------+ + + External Lab: CBC (10/14/2018) + [...] Blood | + + Comprehensive Metabolic Panel (10/14/2018) + +-------+ + [...] +--------+ +---------+ | MEDICARE | MEDICA | [id number] | Medica | [phone] | | | | RE | | re | [phone] | | | | PART A | | | | | | | AND B | | | | | + +--------+ +--------+ +---------+ | DEPARTMENT OF | [place] | [phone] | Indemn | | | | CORRECTIONS | RE | | ity | | | + +--------+ +--------+ +---------+ | MEDICAID [place] | MEDICA | [id number] | Medica | [phone] | | | [place] | | id | [phone] | | | | PLUS | | | | | + +--------+ +--------+ +---------+ + +--------+ +--------+ + + | Guarantor Name | Accoun | Relation to | Date | Phone | Billing Address | | | t Type | Patient | of | | | | | | | | | | + +--------+ +--------+ + + | ANNE MARIE PICHARDO | Person | Self | [birth year] | Home: | [address] | | | al/Fam | | 4 | [phone] | [place] [address] | | | daljit | | | [phone] | | + +--------+ +--------+ + + | [employer] [place] | 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/ | Home: | [address] | | | ate | | [phone] | [phone] | [place] [address] | | | | | | [phone] | | + +--------+ +--------+ + +
--- OUTSIDE RECORDS SUMMARY | ~2018-12-31 | XMS | Encounter Summary ---
Demographics + + + | Address | [address] | | | [place] [address] | + + + | Home Phone [...] Author | [facility] | | | and Ankitana | + + + | Organization | [facility] | | | and Ankitana | [...] Providers + +------+ + | Care Marketing Specialist Name | Role | Phone | [...] | | | | | apnea) | [place] | [place], [place] | | | | | | [place], | [address] Phone: | | | | | | [place] | [phone] | | | | | | [address] | Fax: | | | | | | Phone: | [phone] | | | | | | [phone] | | | | | | | Fax: | | | | | | | [phone] | | +--------+ + + + + [...] + + | 10/22/ | Office | [facility] | Carol, | Hypertension, | | 2018 | Visit | CARDIOLOGY [address] | SALVATORE Moreno [address] | unspecified type | | | | [place], | [place], | (Primary Dx); | | | | [place] [address] | [place] [address] | Ischemic | | | | [phone] | [phone] | cardiomyopathy; | | | | | [...] chronic, stage II (GFR 60-89 ml/min) H/O [place] (myocardial infarction) Hepatitis C Risk factors for [...] Abnormal ECG Confirmed by MARIANGEL WALTON MD ([id number]) on 10/01/2018 12:13:49 PM none done today LAB RESULTS reviewed during visit today primarily from [facility]: LIPID No results found for: CHOL, [...] Value 06/09/2018 37 I reviewed records from [facility] for office visit on 10/01/2018 w hich is summarized in the HPI. RESULTS- I reviewed reports from [facility]: No results found. Above data and testing is reviewed this visit; testing below is historical data unless othe rwise specified. ASSESSMENT: 1. Coronary artery disease with ischemia cardiomyopathy A. History cardiac arrest post unknown stenting in 2011 at [facility] in [place] B. Echocardiogram 2D , M-mode, Doppler and [...] the inferior and lateral castillo from prior [place], mild destinee infarct ischemia. LARGE SEVERE inferior and Lateral NE. By Shad Schuler MD G. Left heart [...] unction. Trace TR, pulmonic valve normal Trace [place], visible portions of ascending aorta and a [...] She is in class II of the [place] [employer] functional class. Heart failure stage [...] 1. She will have echocardiogram checked in [facility] 2. Increase Metoprolol XL 100 mg in [...] ejection fraction. [facility]. Portions of this chart may have been created with [employer] voice recognition software. Occasi onal wrong-word or [...] [place] | | | | | | [id number] | | | | | | | | +--------+ + + + + | 03/03/ | Office | Cardiology | Carol, | | | 2018 | Visit | | SALVATORE Moreno [address] | | | | | | [place], | | | | | | [place] [address] | | | | | | [phone] | | | | | | | [...] Coronary atherosclerosis of unspecified type of vessel, habematolel or graft | + + | PATRICE (obstructive sleep apnea) | + + | Obstructive sleep apnea (adult) (pediatric) | + +
--- OUTSIDE RECORDS SUMMARY | ~2018-12-31 | XMS | Encounter Summary ---
Demographics + + + | Address | [address] | | | [place] [address] | + + + | Home Phone | | + + + | Preferred Language | Unknown | + + + | Marital Status | | + + + | Judaism Affiliation | 1041 | + + + | Race | Unknown | + + + | Ethnic Group | Unknown | + + + Author + + + | Author | [facility] | | | and Ankitana | + + + | Organization | [facility] [...] Team Providers + +------+ + | Care Final Inspector Truck Trailer Name | Role | Phone | + [...] | | CARDIOLOGY [address] | Tiffanie, ADVANCED PRACTICE PSYCHIATRIC NURSE [address] | | | | | [place], | [place], | | | | | [place] [address] | [place] [address] | | | | | [phone] | [phone] | | | | | | | [...] | | | | | | [place] | | | | | | [place] [address] | | | | | | [phone] | | | | | | | [...]
--- OUTSIDE RECORDS SUMMARY | ~2018-12-31 | XMS | Encounter Summary ---
Demographics + + + | Address | [address] | | | [place] [address] | + + + | Home Phone | | + + + | Preferred Language | Unknown | + + + | Marital Status | | + + + | Mandaeism Affiliation | 1041 | + + + | Race | Unknown | + + + | Ethnic Group | Unknown | + + + Author + + + | Author | [facility] | | | and Ankitana | + + + | Organization | [facility] | | | and [...] Team Providers + +------+ + | Care Registered Midwife Name | Role | Phone | + [...] | | | | | apnea) | [place] | [place], [place] | | | | | | [place], | [address] Phone: | | | | | | [place] | [phone] | | | | | | [address] | Fax: | | | | | | Phone: | [phone] | | | | | | [phone] | | | | | | | Fax: | | | | | | | [phone] | | +--------+ + + + + [...] + + | 10/22/ | Office | [facility] | Carol, | Hypertension, | | 2018 | Visit | CARDIOLOGY [address] | SALVATORE Moreno [address] | unspecified type | | | | [place], | [place], | (Primary Dx); | | | | [place] [address] | [place] [address] | Ischemic | | | | [phone] | [phone] | cardiomyopathy; | | | | | [...] chronic, stage II (GFR 60-89 ml/min) H/O [place] (myocardial infarction) Hepatitis C Risk factors for [...] Abnormal ECG Confirmed by MARIANGEL WALTON MD ([id number]) on 10/01/2018 12:13:49 PM none done today LAB RESULTS reviewed during visit today primarily from [facility]: LIPID No results found for: CHOL, [...] Value 06/09/2018 37 I reviewed records from [facility] for office visit on 10/01/2018 w hich is summarized in the HPI. RESULTS- I reviewed reports from [facility]: No results found. Above data and testing is reviewed this visit; testing below is historical data unless othe rwise specified. ASSESSMENT: 1. Coronary artery disease with ischemia cardiomyopathy A. History cardiac arrest post unknown stenting in 2011 at [facility] in [place] B. Echocardiogram 2D , M-mode, Doppler and [...] the inferior and lateral castillo from prior [place], mild destinee infarct ischemia. LARGE SEVERE inferior and Lateral [place]. By Shad Schuler MD G. Left heart [...] She is in class II of the [place] Heart Association functional class. Heart failure stage [...] She will have echocardiogram checked in [facility] 2. Increase Metoprolol XL 100 [...] ejection fraction. [facility] also [facility]. Portions of this chart may have been created with [employer] voice recognition software. Occasi onal wrong-word or [...] [place] | | | | | | [id number] | | | | | | | | +--------+ + + + + | 03/03/ | Office | Cardiology | Carol, | | | 2018 | Visit | | SALVATORE Moreno [address] | | | | | | [place], | | | | | | [place] [address] | | | | | | [phone] | | | | | | | [...] Coronary atherosclerosis of unspecified type of vessel, [place] or graft | + + | PATRICE (obstructive sleep apnea) | + + | Obstructive sleep apnea (adult) (pediatric) | + +
--- OUTSIDE RECORDS SUMMARY | ~2018-12-31 | XMS | Encounter Summary ---
Demographics + + + | Address | [address] | | | [place] [address] | + + + | Home Phone [...] | Author | [facility] | | | and Ankitana | + + + | Organization | [facility] | | [...] Providers + +------+ + | Care Assistant Grocery Store Manager Name | Role | Phone | [...] | apnea, | [address] | [place] | | | | | unspecified | [place] | [place], | | | | | type | [place], [place] | [place] [address] | | | | | Procedures | [address] | Phone: | | | | | [place] POLYSOM | Phone: | [phone] | | | | | 6/>YRS SLEEP | [phone] | Fax: | | | | | 4/> ADDL | Fax: | [phone] | | | | | [place] | [phone] | | | | | | [place] [...] | | | | | apnea) | [place] | [place] | | | | | | [place], | [address] Phone: | | | | | | [place] | [phone] | | | | | | [address] | Fax: | | | | | | Phone: | [phone] | | | | | | [phone] | | | | | | | Fax: | | | | | | | [phone] | | +--------+ + + + + + Encounter Details +--------+---------+ + + + | Date | Type | Department | Care Team | Description | +--------+---------+ + + + | 12/01/ | Office | [facility] | Jessy Agarwal MD | Sleep apnea, | | 2018 | Visit | SLEEP DISORDER [address] | [address] | unspecified type | | | | [place] | [place] | (Primary Dx) | | | | [place] [address] | [address] | | | | | [phone] | | | +--------+---------+ + + + [...] and wake time. They usually watch some [employer] s eries. She usually goes to bed [...] marijuana(Indica) to help with her sleep. ? Hasty Sleepiness Scale: 2 out of 24 ( [...] Past Medical History: Diagnosis Date Acute [place] ([facility]) 2011 Anxiety Back pain Bipolar disorder (HCC) Community acquired pneumonia secondary to Haemophilus influenzae Coronary artery disease Depression Dyslipidemia Hepatitis C Heroin abuse ([facility]) Last use was 2011 Hip pain HTN (hypertension) Insomnia Ischemic cardiomyopathy Methamphetamine use ([facility]) 06/07/2018 She denies use and [...] Cor Angio; Surgeon: Shad Schuler MD; Location: [facility] CV LAB CARDIAC CATHERIZATION Right 06/09/2018 Procedure: CV LHC; Surgeon: Shad Schuler MD; Location: [facility] CV LAB CARDIAC CATHERIZATION Right 06/09/2018 Procedure: CV LV; Surgeon: Shad Schuler MD; Location: [facility] CV LAB CATARACT REMOVAL Left 08/13/2018 Procedure: LEFT EXTRACTION CATARACT WITH LENS IMPLANT; Surgeon: Seamus Richard MD; Loc ation: [facility] MAIN OR CATARACT REMOVAL Right 09/10/2018 Procedure: RIGHT EXTRACTION CATARACT WITH LENS IMPLANT; Surgeon: Seamus Richard MD; Lo cation: [facility] MAIN OR CORONARY ANGIOPLASTY WITH STENT PLACEMENT 05/11/2012 Percutaneous transluminal coronary angioplasty and stenting of the left circumflex with th rombectomy of the left circumflex CORONARY ARTERY BYPASS GRAFT N/A 06/11/2018 Procedure: CORONARY ARTERY BYPASS GRAFT X3 EV JU; Surgeon: Hemanth Webster MD; Loc ation: [facility] MAIN OR HYSTERECTOMY 1995 ALLERGIES No Known [...] problems. discussed diagno sis via polysomnography / pwr-ry-nmhqly sleep testing. she has been a smoker [...] this chart may have been created with [employer] voice recognition software. Occasi onal wrong-word or sound-alike substitutions may have occurred due to the inherent meyers itations of voice recognition software. Please read the chart carefully and recognize, using context, where these substitutions have occurred. Pam Sánchez, Biofuels Product Manager - 12/01/2018 1330 PSTFormatting of this note may be differen t from the original. 12/01/18 1300 Ramirez Depression Inventory-II Depression Score 16 - Mild depression Insomnia Severity Index Insomnia Severity Index 22 Hasty Sleepiness Scale 1. Sitting and reading 0 [...] | | | | | [place], [place] | | | | | | [address] | | | | | | | | +--------+ + + + + | 03/03/ | Office | Cardiology | Carol, | | | 2018 | Visit | | SALVATORE Moreno [address] | | | | | | [place], | | | | | | [place] [address] | | | | | | [phone] | | | | | | | | +--------+ + + + + + +--------+ + + | Name | Priori | Associated Diagnoses | Order Schedule | | | ty | | | + +--------+ + + | * [facility] Sleep Center - AMB Referral | Routin | Sleep apnea, | Ordered: 12/01/2018 | | | e | unspecified type | | + +--------+ + + as of this encounter Visit Diagnoses + + | Diagnosis | + + | Sleep apnea, unspecified type - Primary | + +
--- OUTSIDE RECORDS SUMMARY | ~2018-12-31 | XMS | Clinical Summary ---
Demographics + + + | Address | [address] | | | [place] [address] | + + + | Home Phone [...] | Author | [facility] | | | and Ankitana | + + + | Organization | [facility] | | [...] Team Providers + +------+ + | Care Human Resources Operations Specialist Name | Role | Phone [...] and | | lateral castillo from prior [place], mild destinee infarct ischemia. LARGE | | SEVERE inferior and Lateral [place]. By Shad Schuler MD Left heart | | cath on 06/09/18 shows, severely calcified coronaries with severe | | three-vessel CAD including 60% distal left main, 90% ostial | | circumflex, 99% proximal circumflex, obtuse marginal 4 and 5 | | disease, ostial and proximal 40% LAD, 95% ostial septal | | shearing machine operator, 70% mid and distal LAD, [...] TR, pulmonic valve normal | | Trace [place], visible portions of ascending aorta and arch [...] + + | Overview: Large Inferior posterior [place] March 2012. Non STEMI | | June [...] + + + + + | H/O [place] (myocardial infarction) | 10/06/2011 | + + + + + | Overview: Large Inferior posterior [place] March 2012. | | Non STEMI June [...] [place] | | | | | | [id number] | | | | | | | | +--------+ + + + + | 03/03/ | Office | | Carol, | | | 2018 | Visit | | SALVATORE Moreno [address] | | | | | | [place] | | | | | | [place] [address] | | | | | | [phone] | | | | | | | [...] + +--------+--------+ +--------+--------+--------+ | Marker [facility] - | Generi | | GENESSE | | 09/16/ | AMGM-S | | [id number]: Qty: 2 | c | | BIOMEDICAL | | 2020 | D / / | | on 06/11/2018 by Eleanor, | | | - GNES | | | | | Hemanth Cooper MD | | | | | | | + +--------+--------+ +--------+--------+--------+ | Lens Tecnis Preloaded Pcb 8.5 | Generi | Left: | MORENO | | 04/24/ | [id number] | | - [id number]: Qty: | c | Eye | MEDICAL | | 2019 | 0085 | | 1 on 08/13/2018 by Richard, | | | OPTICS - | | | /[id number] | | Seamus Chance MD | | | [place] | | | [address] | | | | | | | | / | + +--------+--------+ +--------+--------+--------+ | Lens Tecnis Preloaded Pcb 8.5 | Generi | Right: | MORENO | | 01/31/ | [id number] | | - [id number]: Qty: | c | Eye | MEDICAL | | 2019 | 0085 | | 1 on 09/10/2018 by Jose Manuel, | | | [employer] - | | | /[id number] | | Seamus Chance MD | | | [place] | | | [address] | | | | | | | [...] +--------+ +---------+ | MEDICARE | MEDICA | [id number] | Medica | [phone]- | | | | RE | | re | [phone] | | | | PART A | | | | | | | AND B | | | | | + +--------+ +--------+ +---------+ | DEPARTMENT OF | [place] | [id number] | Indemn | | | | CORRECTIONS | RE | | ity | | | + +--------+ +--------+ +---------+ | MEDICAID [place] | MEDICA | [id number] | Medica | [phone] | | [...] Self | [birth year] | Home: | [address] | | | al/Fam | | 4 | [phone] | [place] [address] | | | daljit | | | [phone] | | + +--------+ +--------+ + + | DELIA [place] | 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/ | Home: | [address] | | | ate | | [phone] | [phone] | [place] [address] | | | | | | [phone] | | + +--------+ +--------+ + +
--- OUTSIDE RECORDS SUMMARY | ~2018-12-31 | XMS | Encounter Summary ---
Demographics + + + | Address | [address] | | | [place] [address] | + + + | Home Phone [...] | Author | [facility] | | | and Ankitana | + + + | Organization | [facility] [...] Team Providers + +------+ + | Care Algebra Tutor Name | Role | Phone | [...] | | CARDIOLOGY [address] | Tiffanie, BOLT HEADER [address] | | | | | [place], | [place], | | | | | [place] [address] | [place] [address] | | | | | [phone] | [phone] | | | | | | | [...] | | | | | | [place] [address] | | | | | | [phone] | | | | | | | [...]
--- OUTSIDE RECORDS SUMMARY | ~2018-12-31 | XMS | Encounter Summary ---
Demographics + + + | Address | [address] | | | [place] [address] | + + + | Home Phone [...] | Author | [facility] | | | and Ankitana | + + + | Organization | [facility] | [...] Providers + +------+ + | Care Administrative Office Clerk Name | Role | Phone | [...] W | echocardiogram) | | | | [place], | [place], | | | | | [place] [address] | [place] [address] | | | | | [phone] | [phone] | | | | | | | [...] [place] | | | | | | [address] | | | | | | | | +--------+ + + + + | 03/03/ | Office | Cardiology | Carol, | | | 2019 | Visit | | SALVATORE Moreno [address] | | | | | | [place], | | | | | | [place] [address] | | | | | | [phone] | | | | | | | | +--------+ + + + + as of this encounter Visit Diagnoses Not on filein this encounter"
--- OUTSIDE RECORDS SUMMARY | ~2018-12-31 | XMS | Encounter Summary ---
Demographics + + + | Address | [address] | | | [place] [address] | + + + | Home Phone [...] | [facility] | | | and Ankitana | + + + | Organization | [facility] | | | [...] Team Providers + +------+ + | Care Transportation Mechanic Name | Role | Phone | [...] [address] | | | | | [place], | [place], | | | | | [place] [address] | [place] [address] | | | | | [phone] | [phone] | | | | | | | [...] [place] | | | | | | [address] | | | | | | | | +--------+ + + + + | 03/03/ | Office | Cardiology | Carol, | | | 2018 | Visit | | SALVATORE Moreno [address] | | | | | | [place], | | | | | | [place] [address] | | | | | | [phone] | | | | | | | | +--------+ + + + + as of this encounter Visit Diagnoses Not on filein this encounter"
--- OUTSIDE RECORDS SUMMARY | ~2018-12-31 | XMS | Encounter Summary ---
Demographics + + + | Address | [address] | | | [place] [address] | + + + | Home Phone [...] + | Author | [facility] | | | and Ankitana | + + + | Organization | [facility] | [...] Team Providers + +------+ + | Care Buffing Machine Operator Name | Role | Phone [...] | apnea, | [address] | [place] | | | | | unspecified | [place] | [place], | | | | | type | [place], [place] | [place] [address] | | | | | Procedures | [address] | Phone: | | | | | [place] POLYSOM | Phone: | [phone] | | | | | 6/>YRS SLEEP | [phone] | Fax: | | | | | 4/> ADDL | Fax: | [phone] | | | | | [place] ATTND | [phone] | | | | | | [place] POLYSOM | | | | | | [...] | | | | | apnea) | [place] | [place] | | | | | | [place], | [address] Phone: | | | | | | [place] | [phone] | | | | | | [address] | Fax: | | | | | | Phone: | [phone] | | | | | | [phone] | | | | | | | Fax: | | | | | | | [phone] | | +--------+ + + + + + Encounter Details +--------+---------+ + + + | Date | Type | Department | Care Team | Description | +--------+---------+ + + + | 12/01/ | Office | [facility] | Jessy Agarwal MD | Sleep apnea, | | 2018 | Visit | SLEEP DISORDER [address] | [address] | unspecified type | | | | [place] | [place] | (Primary Dx) | | | | [place] [address] | [address] | | | | | [phone] | | | +--------+---------+ + + + [...] and wake time. They usually watch some [employer] s eries. She usually goes to bed [...] marijuana(Indica) to help with her sleep. ? [place] Sleepiness Scale: 2 out of 24 ( [...] HISTORY Past Medical History: Diagnosis Date Acute [place] ([facility]) 2011 Anxiety Back pain Bipolar disorder (HCC) Community acquired pneumonia secondary to Haemophilus influenzae Coronary artery disease Depression Dyslipidemia Hepatitis C Heroin abuse ([facility]) Last use was 2011 Hip pain HTN (hypertension) Insomnia Ischemic cardiomyopathy Methamphetamine use ([facility]) 06/07/2018 She denies use and suggests that [...] Cor Angio; Surgeon: Shad Schuler MD; Location: [facility] CV LAB CARDIAC CATHERIZATION Right 06/09/2018 Procedure: CV LHC; Surgeon: Shad Schuler MD; Location: [facility] CV LAB CARDIAC CATHERIZATION Right 06/09/2018 Procedure: CV LV; Surgeon: Shad Schuler MD; Location: [facility] CV LAB CATARACT REMOVAL Left 08/13/2018 Procedure: LEFT EXTRACTION CATARACT WITH LENS IMPLANT; Surgeon: Seamus Richard MD; Loc ation: [facility] MAIN OR CATARACT REMOVAL Right 09/10/2018 Procedure: RIGHT EXTRACTION CATARACT WITH LENS IMPLANT; Surgeon: Seamus Richard MD; Lo cation: [facility] MAIN OR CORONARY ANGIOPLASTY WITH STENT PLACEMENT 05/11/2012 Percutaneous transluminal coronary angioplasty and stenting of the left circumflex with th rombectomy of the left circumflex CORONARY ARTERY BYPASS GRAFT N/A 06/11/2018 Procedure: CORONARY ARTERY BYPASS GRAFT X3 EV JU; Surgeon: Hemanth Webster MD; Loc ation: [facility] MAIN OR HYSTERECTOMY 1995 ALLERGIES No [...] problems. discussed diagno sis via polysomnography / fxm-px-bbtkit sleep testing. she has been a smoker [...] this chart may have been created with [employer] voice recognition software. Occasi onal wrong-word or sound-alike substitutions may have occurred due to the inherent meyers itations of voice recognition software. Please read the chart carefully and recognize, using context, where these substitutions have occurred. Pam Sánchez, Medical Billing Supervisor - 12/01/2018 1330 PSTFormatting of this note may be differen t from the original. 12/01/18 1300 Ramirez Depression Inventory-II Depression Score 16 - Mild depression Insomnia Severity Index Insomnia Severity Index 22 [place] Sleepiness Scale 1. Sitting and reading 0 [...] | | | | | [place], [place] | | | | | | [address] | | | | | | | | +--------+ + + + + | 03/03/ | Office | Cardiology | Carol, | | | 2018 | Visit | | SALVATORE Moreno [address] | | | | | | [place], | | | | | | [place] [address] | | | | | | [phone] | | | | | | | | +--------+ + + + + + +--------+ + + | Name | Priori | Associated Diagnoses | Order Schedule | | | ty | | | + +--------+ + + | * [facility] - AMB Referral | Routin | Sleep apnea, | Ordered: 12/01/2018 | | | e | unspecified type | | + +--------+ + + as of this encounter Visit Diagnoses + + | Diagnosis | + + | Sleep apnea, unspecified type - Primary | + +
--- OUTSIDE RECORDS SUMMARY | ~2018-12-31 | XMS | Encounter Summary ---
Demographics + + + | Address | [address] | | | [place] [address] | + + + | Home Phone [...] | Author | [facility] | | | and Ankitana | + + + | Organization | [facility] [...] Team Providers + +------+ + | Care Enologist Name | Role | Phone | + [...] + | 11/25/ | Office | [facility] | Carol, | Hypertension, | | 2019 | Visit | CARDIOLOGY [address] | SALVATORE Moreno [address] | unspecified type | | | | [place], | [place], | (Primary Dx); | | | | [place] [address] | [place] [address] | Ischemic | | | | [phone] | [phone] | cardiomyopathy; | | | | | [...] encounter Instructions Patient Instructions - Dayana Chan, Medication Care Manager - 11/25/2018 1045 PST 1. Start taking lisinopril 20 mg twice daily by mouth to help with your blood pressure . 2. You will check your blood pressure and pulse twice daily for two weeks and return the lo g to our office. 3. You will need to go to get your labs (BMP) drawn at [facility] . 4. Please [...] sodium in extra because of eating out persian food for the last weeks Her energy [...] chronic, stage II (GFR 60-89 ml/min) H/O [place] (myocardial infarction) Hepatitis C Risk factors for [...] Abnormal ECG Confirmed by MARIANGEL WALTON MD ([id number]) on 10/01/2018 12:13:49 PM LAB RESULTS reviewed during visit today primarily from [facility]: LIPID No results found [...] in 2011 at [facility] in [place] B. Echocardiogram 2D , M-mode, Doppler and [...] the inferior and lateral castillo from prior [place], mild destinee infarct ischemia. LARGE SEVERE inferior and Lateral [place]. By Shad Schuler MD G. Left heart [...] unction. Trace TR, pulmonic valve normal Trace [place], visible portions of ascending aorta and a [...] II- Symptoms with moderate exertion of the [place] Heart Association functional class. 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 Discussed the results of the echocardiogram. She has a appointment with [facility] in a few weeks. [...] this chart may have been created with [employer] voice recognition software. Occasi onal wrong-word or [...] [place] | | | | | | [address] | | | | | | | | +--------+ + + + + | 03/03/ | Office | Cardiology | Carol, | | | 2018 | Visit | | SALVATORE Moreno [address] | | | | | | [place], | | | | | | [place] [address] | | | | | | [phone] | | | | | | | [...] Coronary atherosclerosis of unspecified type of vessel, [place] or graft | + +
[~2018-12-31 11:52] MED LIST changes: +ZOFRAN4 MG PO
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
[2018-12-31] MEDS ORDERED: NORCO 5-325 TA1 EACH PO (14:31)
[2018-12-31] MEDS ORDERED: CIPRO500 MG PO (14:31)
[2018-12-31] MEDS ORDERED: FLAGYL500 MG PO (14:31)
[2018-12-31] MEDS ORDERED: ONDANSETRON ODT8 MG PO (15:02)
== END 2018-12-31 15:05 | disposition home or self-care (01) ==
LOC: ED 11:52
DX: K57.92 Diverticulitis of intestine, part unspecified, without perforation or abscess without bleeding (principal); K21.9 Gastro-esophageal reflux disease without esophagitis; I10 Essential (primary) hypertension; I25.5 Ischemic cardiomyopathy; Z95.1 Presence of aortocoronary bypass graft; I25.10 Atherosclerotic heart disease of native coronary artery without angina pectoris; Z90.710 Acquired absence of both cervix and uterus; Z95.5 Presence of coronary angioplasty implant and graft; Z79.899 Other long term (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; Z79.82 Long term (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 of aspirin
CPT/HCPCS: 80053; 83690; 85025; 96361; 96374; 96375; 99284-25; C9113; J2405; J7030

== ENCOUNTER 2019-03-30 15:14 | Emergency (ER) | payer MEDICARE, OTHER ==
[~2019-03-30] VITALS: Ht 172.7 cm; Wt 77.1 kg
[~2019-03-30 15:14] MED LIST changes: +CIPRO500 MG PO; +FLAGYL500 MG PO
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
[2019-03-30] MEDS ORDERED: PROMETHAZINE HC25 M1 PO (17:53)
[2019-03-31] MEDS ORDERED: ONDANSETRON ODT4 MG SL (16:15)
== END 2019-03-30 18:00 | disposition home or self-care (01) ==
LOC: ED 15:14
DX: R10.32 Left lower quadrant pain (principal); I10 Essential (primary) hypertension; Z95.1 Presence of aortocoronary bypass graft; F17.200 Nicotine dependence, unspecified, uncomplicated; Z90.710 Acquired absence of both cervix and uterus; Z95.5 Presence of coronary angioplasty implant and graft; Z79.899 Other long term (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; Z79.82 Long term (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 of aspirin
CPT/HCPCS: 74177; 80053; 81001; 83690; 85025; 99284-25; J2270; J2405; J7040; Q9967

== ENCOUNTER 2019-03-31 15:34 | Emergency (ER) | payer MEDICARE, OTHER ==
[~2019-03-31] VITALS: Ht 172.7 cm; Wt 77.1 kg
[~2019-03-31 15:34] MED LIST changes: +PROMETHAZINE HC25 M1 PO
--- OUTSIDE RECORDS SUMMARY | 2019-03-31 15:36 | XMS ---
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 GIL Security Patient Observer Events No recent Security Events currently on file CRITERIA MET - [facility] - Has Care Guidelines - PDMP - [facility] - 2 Visits in 30 Days CARE PROVIDERS EMILY CONDON [facility] 07/28/2018-Current PHONE: Unknown NON ESTABLISHED Primary Care Current PHONE: [phone] Care Guidelines exist for the following facilities: [facility] ( 02/16/2018 ) [facility] ( 03/06/2015 ) Care History Infection/Chronic 09/25/2015 [facility] History of MRSA. Most recent positive culture of hand abscess 09/19/15. Substance Use/Overdose 12/28/2018 [facility] - HX OF IV DRUG USAGE- PLEASE BE ADVISED - USE EXTREME CAUTION IN GIVING NARCOTICS TO THIS PATIENT. - Avoid Discharge Narcotic prescriptions if at all possible. Physician Discretion. 09/25/2015 [facility] Noted hx of IV drug use - denies any recent use as of September 2015. Medical/Surgical 03/31/2019 [facility] \T\middot;\T\nbsp; PATIENT IS A [employer] MEMBER. \T\middot;\T\nbsp; PLEASE REFER PATIENT TO [facility] FOR NON EMERGENT MEDICAL NEEDS. \T\middot;\ T\nbsp; [facility] CAN SEE PATIENTS SAME DAY FOR APTS IF PATIENT CALLS FIRST THING IN THE MORNING. 07/06/2018 [facility] - PATIENT HAD AN APT WITH [employer] 07/06/18 @ 10:00AM. - [facility] IS WAITING ON [place] INCOME VERIFICATION FROM PATIENT IN ORDER TO HELP PATIENT WITH MEDICAID BENEFITS IN THE STATE OF [place], PATIENT IS AWARE OF THIS VERIFICATION NEEDED BUT HAS STATED THAT INCOME VERIFICATION SHOULD BE EXEMPT DUE TO LAND PLANE SETTLEMENT. 07/06/2018 [facility] - PATIENT IS CURRENTLY ESTABLISHED WITH PCP DR CURRY. - PATIENT HAS FOLLOW UP APTS WITH GENERAL PRODUCTION WORKER DR ROLAND IN [place] ON July. - PATIENT HAD A FOLLOW UP APT WITH DR MARQUIS ON 06/29/18 PATIENT SURGEON. - PATIENT AND CHW WORKED ON PATIENT RECEIVING HER CERTIFICATE WHICH PATIENT NOW HAS. - PATIENT WANTS TO ESTABLISH WITH [employer] BUT CAN\T\#39;T UNTIL SHE HAS PROOF OF BLOOD LINE PAPERWORK WHICH THEY ARE CURRENTLY WAITING ON TO RECEIVE. - PATIENT INSURANCE SHOULD CHANGE TO [place] MEDICAID ON July SINCE HER AUNT BHAVESH STATED THEY ALREADY CONTACTED AGING AND PEOPLE WITH DISABILITIES OFFICE AND THEY WERE HAVING HER INSURANCE CHANGED TO [place] MEDICAID BECAUSE OF PATIENT MEDICATIONS. [facility].D. [facility]12 MO.) [facility] TOTAL 9 NOTE: Visits indicate total known visits. ED/UCC VISIT TRACKING (12 MO.) 03/31/2019 15:[address] [facility] [address] 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 - Ischemic cardiomyopathy - Lower abdominal pain, unspecified - Presence of aortocoronary bypass graft - retirement (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 of aspirin - Presence of coronary angioplasty implant and graft 12/26/2018 22:01 [facility] [place] TYPE: Emergency COMPLAINT: - VOMITTING/ABD PAIN DIAGNOSES: - Ischemic cardiomyopathy - Nicotine dependence, unspecified, uncomplicated - 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 (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 of 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 - Atherosclerotic heart disease of [place] coronary artery without angina pectoris - Presence of aortocoronary bypass graft - Noninfective gastroenteritis and colitis, unspecified - 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 - Gastro-esophageal reflux disease without esophagitis - Nausea with vomiting, unspecified - Essential (primary) hypertension - Presence of coronary angioplasty implant and graft 10/21/2018 19:52 [facility] [place] TYPE: Emergency COMPLAINT: - ABD PAIN DIAGNOSES: - Lower abdominal pain, unspecified - Noninfective gastroenteritis and colitis, unspecified - retirement (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 of aspirin - Nicotine dependence, unspecified, uncomplicated - Essential (primary) hypertension - Gastro-esophageal reflux disease without esophagitis - 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 07/11/2018 12:57 [facility] [place] TYPE: Emergency COMPLAINT: - VOMITING 07/05/2018 18:58 [facility] [place] TYPE: Emergency COMPLAINT: - SHORTNESS OF BREATH DIAGNOSES: - 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 TYPE: Emergency DIAGNOSES: [...] Hyperlipidemia, unspecified - Atherosclerotic heart disease of [place] coronary artery without angina pectoris 06/07/2018 08:34 [facility] TYPE: Transplant DIAGNOSES: - Other psychoactive substance abuse, uncomplicated - Non-ST elevation (NSTEMI) myocardial infarction - Esophagitis, unspecified - Atherosclerotic heart disease of [place] coronary artery without angina pectoris - Chest pain, unspecified - Cannabis abuse, uncomplicated - Ischemic cardiomyopathy - Other stimulant abuse, uncomplicated - Abnormal levels of other serum enzymes - Presence of aortocoronary bypass graft - Essential (primary) hypertension - Opioid abuse, uncomplicated - Cannabis use, unspecified, uncomplicated - Hyperglycemia, unspecified - Cyclical vomiting, not intractable - Gastro-esophageal reflux disease without esophagitis [email or web address]
[2019-03-31] MEDS ORDERED: ONDANSETRON ODT4 MG SL (16:15)
== END 2019-03-31 16:38 | disposition home or self-care (01) ==
LOC: ED 15:34
DX: R11.2 Nausea with vomiting, unspecified (principal); R10.9 Unspecified abdominal pain; K21.9 Gastro-esophageal reflux disease without esophagitis; I10 Essential (primary) hypertension; F17.200 Nicotine dependence, unspecified, uncomplicated; Z79.899 Other long term (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; Z79.82 Long term (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 of aspirin
CPT/HCPCS: 96372; 99283-25; 99406; J1170; J2765

== ENCOUNTER 2019-08-21 08:58 | Emergency (ER) | payer MEDICARE, OTHER ==
[~2019-08-21] VITALS: Ht 172.7 cm; Wt 77.1 kg
--- OUTSIDE RECORDS SUMMARY | ~2019-08-21 | XMS | Encounter Summary ---
Demographics + + + | Address | [address] | | | [place] [address] | + + + | Home Phone | | + + + | Preferred Language | Unknown | + + + | Marital Status | | + + + | Religion Affiliation | 1041 | + + + | Race | Unknown | + + + | Ethnic Group | Unknown | + + + Author + + + | Author | [facility] | | | and [facility] | + + + | Organization | [facility] | | | and [facility] | + + + | Address | Unknown | + + + | Phone | Unavailable | + + + Support + + +---------+ + | Name | Relationship | Address | Phone | + + +---------+ + | Lizz Cruz | ECON | Unknown | | + + +---------+ + | Becky Cruz | ECON | Unknown | | + + +---------+ + Care Team Providers + +------+ + | Care Clinical Law Professor Name | Role | Phone | + +------+ + PCP | Unavailable | + +------+ + Encounter Details +--------+ + + + + | Date | Type | Department | Care Team | Description | +--------+ + + + + | 04/21/ | Hospital | [facility] | Jesse Herr MD | | | 2006 | Encounter | [facility] | [address] | | | | | [address] [place] | | | | | [place] | [address] | | | | | [place] | | | | | | [address] | | | | | | [phone] | | | +--------+ + + + + Social History + +-------+ +--------+------+ | Tobacco Use | Types | Packs/Day | Years | Date | | | | | Used | | + +-------+ +--------+------+ | Never Assessed | | | | | + +-------+ +--------+------+ + + + | Sex Assigned at | Date Recorded | | | | + + + | Not on file | | + + + + + + + | Job Start Date | Occupation | Industry | + + + + | Not on file | Not on file | Not on file | + + + + + + + + | Travel History | Travel Start | Travel End | + + + + + + | No recent travel history available. | + + documented as of this encounter Plan of Treatment +--------+---------+ + + + | Date | Type | Specialty | Care Team | Description | +--------+---------+ + + + | 09/01/ | Office | Gastroenterology | Aba Gonsalez | | | 2018 | Visit | | MD George [address] | | | | | | [address] | | | | | | [place] [address] | | | | | | [phone] | | | | | | | | +--------+---------+ + + + | 10/28/ | Office | Cardiology | Carol, | | | 2019 | Visit | | SALVATORE Moreno [address] | | | | | | [place], | | | | | | [place] [address] | | | | | | [phone] | | | | | | | | +--------+---------+ + + + documented as of this encounter Visit Diagnoses Not on filedocumented in this encounter"
--- OUTSIDE RECORDS SUMMARY | ~2019-08-21 | XMS | Encounter Summary ---
Demographics + + + | Address | [address] | | | [place] [address] | + + + | Home Phone | | + + + | Preferred Language | Unknown | + + + | Marital Status | | + + + | Orthodox Affiliation | 1041 | + + + | Race | Unknown | + + + | Ethnic Group | Unknown | + + + Author + + + | Author | [facility] | | | and [facility]kit[facility] | + + + | Organization | [facility] | | | and [facility]ana | [...] Team Providers + +------+ + | Care Psychological Stress Evaluator Name | Role | Phone | + +------+ + PCP | Unavailable | + +------+ + Encounter Details +--------+ + + + + | Date | Type | Department | Care Team | Description | +--------+ + + + + | 01/22/ | Hospital | [facility] | Maura Mijares, | | | 2010 | Encounter | [facility] | [address] | | | | [place] [address] | [facility] | | | | | [facility] | [place] [address] | | | | | [place] | [phone] | | | | | [phone] | | | | | | [phone] | | | +--------+ + + + [...] VO | | | | | | [place] [address] | | | | | | [phone] | | | | | | | | +--------+---------+ + + + | 10/28/ | Office | Cardiology | Carol, | | | 2019 | Visit | | SALV[place] Moreno [address] | | | | | | [place], | | | | | | [place] [address] | | | | | | [phone] | | | | | | | | +--------+---------+ + + + documented as of this encounter Procedures + +--------+ + + + | Procedure Name | Priori | Date/Time | Associated Diagnosis | Comments | | | ty | | | | + +--------+ + + + | CULTURE, WOUND, | Routin | 01/22/2011 | | Results for this | | SUPERFICIAL | e | 3:50 PM | | procedure are in the | | | | PDT | | results section. | + +--------+ + + + | HISTORICAL IMAGING | | 01/22/2011 | | Results for this | | RESULT | | 1:53 PM | | procedure are in the | | | | PDT | | results section. | + +--------+ + + + | (MARIA DEL CARMEN)DRUGS OF ABUSE | Routin | 01/22/2011 | | Results for this | | | e | 1:38 PM | | procedure are in the | | | | PDT | | results section. | + +--------+ + + + | COMPREHENSIVE | Routin | 01/22/2011 | | Results for this | | METABOLIC PANEL, | e | 1:13 PM | | procedure are in the | | PART 2 | | PDT | | results section. | + +--------+ + + + | TROPONIN I | Routin | 01/22/2011 | | Results for this | | | e | 1:13 PM | | procedure are in the | | | | PDT | | results section. | + +--------+ + + + | SEDIMENTATION RATE | Routin | 01/22/2011 | | Results for this | | | e | 1:13 PM | | procedure are in the | | | | PDT | | results section. | + +--------+ + + + | CK-MB | Routin | 01/22/2011 | | Results for this | | | e | 1:13 PM | | procedure are in the | | | | PDT | | results section. | + +--------+ + + + | CBC WITH | Routin | 01/22/2011 | | Results for this | | DIFFERENTIAL | e | 1:13 PM | | procedure are in the | | | | PDT | | results section. | + +--------+ + + + | C-REACTIVE PROTEIN | Routin | 01/22/2011 | | Results for this | | | e | 1:13 PM | | procedure are in the | | | | PDT | | results section. | + +--------+ + + + | LIPASE | Routin | 01/22/2011 | | Results for this | | | e | 1:13 PM | | procedure are in the | | | | PDT | | results section. | + +--------+ + + + | AMYLASE | Routin | 01/22/2011 | | Results for this | | | e | 1:13 PM | | procedure are in the | | | | PDT | | results section. | + +--------+ + + + documented in this encounter Results Culture, Wound, Superficial (01/22/2011 3:50 PM PDT) + + + + + + | Component | Value | Ref Range | Performed | Pathologist | | | | | At | Signature | + + + + + + | Specimen | Arm | | [facility] | | | Source | | [facility] | | | | | | [facility] | | + + + + + + | Gram Stain | Abundant NeutrophilsNo | | [facility] | | | | Squamous Epithelial | | [facility] | | | | Cells SeenGram Positive | | [facility] | | | | Cocci resembling | | LABORATORY | | | | Strep=====CULTURE | | | | | | RESULTS===== | | | | + + + + + + | RESULT | Viridans Streptococcus | | [facility] | | | | (A) | | [facility] | | | | | | [facility]ORY | | + + + + + + | RESULT | No Anaerobes Isolated | | [facility] | | | | | | [facility] | | | | | | [facility]ORY | | + + + + + + | Status | 01/24/2011 Final | | [facility] | | | | | [facility] | | | | | | [facility] | | + + + + + + + + | Specimen | + + | Arm | + + + + + + + | Performing | Address | City/State/Zipcode | Phone Number | | Organization | | | | + + + + + | [facility] | [address] | [place] [address] | | | [facility] | | | | | LABORATORY | | | | + + + + + | [facility] | | | | | [facility] | | | | | LABORATORY | | | | + + + + + Historical Imaging Result (01/22/2011 1:53 PM PDT) + + | Specimen | + + | | + + + + + | Narrative | Performed At | + + + | Exam Performed Location: [facility] | MISCELANIOUS | | PA AND LATERAL CHEST CLINICAL INFORMATION: Vomiting with | LAB | | shortness of breath. COMPARISON: 08/14/2008. FINDINGS: The | | | heart, lungs and vessels are normal. There is no pneumothorax or | | | pleural effusion. There is no adenopathy. The bones are normal. | | | IMPRESSION: Normal two-view chest x-ray. | | + + + + + | Procedure Note | + + | Presley Dumont Conversion - 07/29/2013 8:42 PM PDT Exam Performed [facility] INFORMATION:Vomiting with shortness | | of breath.COMPARISON:08/14/2008.FINDINGS:The heart, lungs and vessels are normal. There | | is no pneumothoraxor pleural effusion. There is no adenopathy. The bones are | | normal.IMPRESSION:Normal two-view chest x-ray. | |Vomiting with shortness of breath. | | | |COMPARISON: | |08/14/2008. | | | |FINDINGS: | |The heart, lungs and vessels are normal. There is no pneumothorax | |or pleural effusion. There is no adenopathy. The bones are normal. | | | |IMPRESSION: | |Normal two-view chest x-ray. | + + + +---------+ + + | Performing | Address | City/State/Zipcode | Phone Number | | Organization | | | | + +---------+ + + | [facility] | | | [phone] | + +---------+ + + | [facility] | | | [phone] | + +---------+ + + Drugs of Abuse Screen (01/22/2011 1:38 PM PDT) + + + + + + | Component | Value | Ref Range | Performed | Pathologist | | | | | At | Signature | + + + + + + | Cocaine | Negative | Negative | [facility] | | | Metabolites | | | [facility] | | | , Ur | | | [facility] | | | | | | LABORATORY | | + + + + + + | Phencyclidi | Negative | Negative | [facility] | | | ne Screen, | | | [facility] | | | Urine | | | [facility] | | | | | | LABORATORY | | + + + + + + | Oxycodone, | Negative | Negative | [facility] | | | UR | | | [facility] | | | | | | [facility] | | | | | | LABORATORY | | + + + + + + | Porpoxyphen | Negative | Negative | [facility] | | | e Screen, | | | [facility] | | | Urine | | | [facility] | | | | | | LABORATORY | | + + + + + + | Cannabinoid | Positive (A) | Negative | [facility] | | | s Screen, | | | [facility] | | | Urine | | | [facility] | | | | | | LABORATORY | | + + + + + + | Benzodiazep | Positive (A) | Negative | [facility] | | | malorie | | | [facility] | | | Screen, | | | [facility] | | | Urine | | | LABORATORY | | + + + + + + | Amphetamine | Negative | Negative | [facility] | | | Screen, | | | [facility] | | | Urine | | | [facility] | | | | | | LABORATORY | | + + + + + + | Barbiturate | Negative | Negative | [facility] | | | s Screen, | | | [facility] | | | Urine | | | [facility] | | | | | | LABORATORY | | + + + + + + | Methampheta | Negative | Negative | [facility] | | | mine | | | [facility] | | | Screen, | | | [facility] | | | Urine | | | LABORATORY | | + + + + + + | Methadone | Negative | Negative | [facility] | | | Screen, | | | [facility] | | | Urine | | | [facility] | | | | | | LABORATORY | | + + + + + + | Opiate | Positive (A) | Negative | [facility] | | | Screen, | | | [facility] | | | Urine | | | [facility] | | | | | | LABORATORY | | + + + + + + | Tricyclics, | NegativeComment: This | Negative | [facility] | | | UR | entire battery is for | | [facility] | | | | screening purposes only. | | [facility]ITAL | | | | Results are not | | LABORATORY | | | | confirmed.Please note: | | | | | | Some medications cause | | | | | | positive results with | | | | | | any or all tested drugs | | | | | | in this battery.Results | | | | | | from any unconfirmed | | | | | | drug in this screening | | | | | | battery should not be | | | | | | used for legal purposes. | | | | + + + + + + + + | Specimen | + + | | + + + + + + + | Performing | Address | City/State/Zipcode | Phone Number | | Organization | | | | + + + + + | [facility] | [address] | [place] [address] | | | [facility] | | | | | LABORATORY | | | | + + + + + | [facility] | | | | | [facility] | | | | | LABORATORY | | | | + + + + + Troponin I (01/22/2011 1:13 PM PDT) + +-------+ + + + | Component | Value | Ref Range | Performed | Pathologist | | | | | At | Signature | + +-------+ + + + | Troponin I | <0.04 | <0.08 ng/mL | [facility] | | | | | | [facility] | | [facility] | | | | | | [facility]ORY | | + +-------+ + + + + + | Specimen | + + | | + + + + + + + | Performing | Address | City/State/Zipcode | Phone Number | | Organization | | | | + + + + + | [facility] | [address] | [place] [address] | | | [facility] | | | | | LAB[facility]ORY | | | | + + + + + | [facility] | | | | | [facility] | | | | | [facility] | | | | + + + + + Sedimentation Rate (01/22/2011 1:13 PM PDT) + +--------+ + + + | Component | Value | Ref Range | Performed | Pathologist | | | | | At | Signature | + +--------+ + + + | ESR | 39 (H) | 0 - 20 mm/h | [facility] | | | | | | [facility] | | | [facility] | | | | | | LAB[facility]ATORY | | + +--------+ + + + + + | Specimen | + + | | + + + + + + + | Performing | Address | City/State/Zipcode | Phone Number | | Organization | | | | + + + + + | [facility] | [address] | [place] [address] | | | [facility] | | | | | LAB[facility]ATORY | | | | + + + + + | [facility] | | | | | [facility] | | | | | LABORATORY | | | | + + + + + Lipase (01/22/2011 1:13 PM PDT) + + + + + + | Component | Value | Ref Range | Performed | Pathologist | | | | | At | Signature | + + + + + + | Lipase | 74Comment: NOTE NEW | 70 - 350 U/L | [facility] | | | | REFERENCE RANGE | | [facility] | | | | [facility] | | | | | | LAB[facility]ATORY | | + + + + + + + + | Specimen | + + | | + + + + + + + | Performing | Address | City/State/Zipcode | Phone Number | | Organization | | | | + + + + + | [facility] | [address] | [place] [address] | | | [facility] | | | | | LAB[facility]ATORY | | | | + + + + + | [facility] | | | | | [facility] | | | | | LAB[facility]ORY | | | | + + + + + C-Reactive Protein (01/22/2011 1:13 PM PDT) + +---------+ + + + | Component | Value | Ref Range | Performed | Pathologist | | | | | At | Signature | + +---------+ + + + | CRP | 5.3 (H) | <1.6 mg/dL | [facility] | | | | | | [facility] | | [facility] | | | | | | LAB[facility]ATORY | | + +---------+ + + + + + | Specimen | + + | | + + + + + + + | Performing | Address | City/State/Zipcode | Phone Number | | Organization | | | | + + + + + | [facility] | [address] | [place] [address] | | | [facility] | | | | | LAB[facility]ATORY | | | | + + + + + | [facility] | | | | | [facility] | | | | | [facility] | | | | + + + + + Comprehensive Metabolic Panel, Part 2 (01/22/2011 1:13 PM PDT) + + + + + + | Component | Value | Ref Range | Performed | Pathologist | | | | | At | Signature | + + + + + + | Na | 137 | 135 - 146 | [facility] | | | | | mmol/L | [facility] | | | | [facility] | | | | | | LAB[facility]ATORY | | + + + + + + | K | 4.5 | 3.6 - 5.2 | [facility] | | | | | mmol/L | [facility] | | | | | [facility] | | | | | | LAB[facility]ATORY | | + + + + + + | Cl | 105 | 98 - 109 mmol/L | [facility] | | | | | | [facility] | | | | | [facility] | | | | | | LAB[facility]ATORY | | + + + + + + | CO2 | 22 | 21 - 32 mmol/L | [facility] | | | | | | [facility] | | | | [facility] | | | | | | LAB[facility]ATORY | | + + + + + + | Glucose | 126 (H)Comment: Impaired | 65 - 99 mg/dL | [facility] | | | | fasting glucose: 100 to | | [facility] | | | | 125 mg/dL. | | [facility] | | | | | | LABORATORY | | + + + + + + | BUN | 11 | 7 - 23 mg/dL | [facility] | | | | | | [facility] | | | | [facility] | | | | | | LAB[facility]ORY | | + + + + + + | Creatinine | 0.91 | 0.60 - 1.20 | [facility] | | | | | mg/dL | [facility] | [facility] | [facility] | | | | | | LAB[facility]ORY | | + + + + + + | Calcium | 9.0 | 8.5 - 10.5 | [facility] | | | | | mg/dL | [facility] | | | | | [facility] | | | | | | LAB[facility]ATORY | | + + + + + + | Total | 8.6 (H) | 6.5 - 8.2 g/dL | [facility] | | | Protein | | | [facility] | | | | | | [facility] | | | | | | LAB[facility]ATORY | | + + + + + + | Albumin | 3.9 | 3.4 - 5.0 g/dL | [facility] | | | | | | [facility] | | | | | | [facility] | | | | | | LAB[facility]ATORY | | + + + + + + | Bilirubin | 0.4 | 0.1 - 1.5 mg/dL | [facility] | | | Total | | | [facility] | | | | | | [facility] | | | | | | LAB[facility]ATORY | | + + + + + + | Alkaline | 220 (H) | 40 - 135 U/L | [facility] | | | Phosphatase | | | [facility] | | | | | | [facility] | | | | | | LAB[facility]ATORY | | + + + + + + | AST | 31 | 5 - 40 U/L | [facility] | | | | | | [facility] | | | | | [facility] | | | | | | LAB[facility]ATORY | | + + + + + + | ALT | 27 | 5 - 65 U/L | [facility] | | | | | | [facility] | | | | [facility] | | | | | | [facility]AT[facility] | | + + + + + + | Anion Gap | 10 | 5 - 16 mmol/L | [facility] | | | | | | [facility] | [facility] | | [facility] | | | | | | LAB[facility] | | + + + + + + + + | Specimen | + + | | + + + + + + + | Performing | Address | City/State/Zipcode | Phone Number | | Organization | | | | + + + + + | [facility] | [address] | [place] [address] | | | [facility] | | | | | LAB[facility]ATORY | | | | + + + + + | [facility] | | | | | [facility] | | | | | LAB[facility]ORY | | | | + + + + + CK-MB (01/22/2011 1:13 PM PDT) + +-------+ + + + | Component | Value | Ref Range | Performed | Pathologist | | | | | At | Signature | + +-------+ + + + | CK TOTAL | 108 | 20 - 200 U/L | [facility] | | | | | | [facility] | | | | | | LAB[facility]ATORY | | + +-------+ + + + | CK-MB | 1.5 | 0.0 - 4.0 ng/mL | [facility] | | | | | | [facility] | [facility] | | | | | | LAB[facility]ORY | | + +-------+ + + + + + | Specimen | + + | | + + + + + + + | Performing | Address | City/State/Zipcode | Phone Number | | Organization | | | | + + + + + | [facility] | [address] [facility] | [place] [address] | | | [facility] | | | | | LAB[facility]ATORY | | | | + + + + + | [facility] | | | | | [facility] | | | | | [facility]ORY | | | | + + + + + Amylase (01/22/2011 1:13 PM PDT) + +--------+ + + + | Component | Value | Ref Range | Performed | Pathologist | | | | | At | Signature | + +--------+ + + + | Amylase | 16 (L) | 25 - 115 U/L | [facility] | | | | | | [facility] | [facility] | [facility] | | | | | | LAB[facility]ATORY | | + +--------+ + + + + + | Specimen | + + | | + + + + + + + | Performing | Address | City/State/Zipcode | Phone Number | | Organization | | | | + + + + + | [facility] | [address] | [place] [address] | | | [facility] | | | | | LAB[facility]ORY | | | | + + + + + | [facility] | [facility] | | | [facility] | | | | + + + + + CBC with Differential (01/22/2011 1:13 PM PDT) + + + + + + | Component | Value | Ref Range | Performed | Pathologist | | | | | At | Signature | + + + + + + | WBC | 15.3 (H) | 4.0 - 11.0 K/uL | [facility] | | | | | | [facility] | | | | | | [facility] | | + + + + + + | RBC | 4.85 | 3.80 - 5.20 | [facility] | | | | | M/uL | [facility] | | | | [facility] | | | | | | LAB[facility]ATORY | | + + + + + + | Hemoglobin | 14.1 | 11.6 - 15.5 | [facility] | | | | | g/dL | [facility] | | | | | | [facility] | | + + + + + + | Hematocrit | 42.7 | 35.0 - 46.0 % | [facility] | | | | | | [facility] | | | | | | [facility] | | + + + + + + | MCV | 88.1 | 80.0 - 100.0 fL | [facility] | | | | | | [facility] | | | | | | [facility] | | + + + + + + | MCH | 29.1 | 27.0 - 34.0 pg | [facility] | | | | | | [facility] | | | | | | [facility] | | + + + + + + | MCHC | 33.0 | 32.0 - 35.5 | [facility] | | | | | g/dL | [facility] | | | | | | [facility] | | + + + + + + | RDW-CV | 13.6 | 11.0 - 15.0 % | [facility] | | | | | | [facility] | | | | | | [facility] | | + + + + + + | Platelet | 432 (H) | 150 - 400 K/uL | [facility] | | | Count | | | [facility] | | | | | | LAB[facility] | | + + + + + + | % | 94.2 (H) | 40.0 - 80.0 % | [facility] | | | Neutrophils | | | [facility] | | | | | | [facility] | | + + + + + + | % | 4.5 (L) | 15.0 - 45.0 % | [facility] | | | Lymphocytes | | | [facility] | | | | | | [facility] | | + + + + + + | % Monocytes | 1.2 | 0.0 - 12.0 % | [facility] | | | | | | [facility] | | | | | | [facility] | | + + + + + + | % | 0.1 | 0 - 7 % | [facility] | | | Eosinophils | | | [facility] | [facility] | | | | | | [facility] | | + + + + + + | % Basophils | 0.0 | 0 - 2 % | [facility] | | | | | | [facility] | | | | | | [facility] | | + + + + + + | Absolute | 14.40 (H) | 2.0 - 7.3 K/uL | [facility] | | | Neutrophils | | | [facility] | | | | | | [facility] | | + + + + + + | Absolute | 0.70 (L) | 1.0 - 3.4 K/uL | [facility] | | | Lymphocytes | | | [facility] | | | | | | LAB[facility]ORY | | + + + + + + | Absolute | 0.20 | 0.0 - 0.8 K/uL | [facility] | | | Monocytes | | | [facility] | | | | | | LAB[facility]ATORY | | + + + + + + | Absolute | 0.00 | 0.0 - 0.5 K/uL | [facility] | | | Eosinophils | | | [facility] | | | | | | LAB[facility] | | + + + + + + | Absolute | 0.00 | 0.0 - 0.1 K/uL | [facility] | | | Basophils | | | [facility] | | | | | | LAB[facility] | | + + + + + + | Differentia | AutomatedComment: Scan | | [facility] | | | l Type | Done | | [facility] | | | | | | [facility] | | + + + + + + + + | Specimen | + + | | + + + + + + + | Performing | Address | City/State/Zipcode | Phone Number | | Organization | | | | + + + + + | [facility] | [address] | [place] [address] | | | [facility] | | | | | LABORATORY | | | | + + + + + | [facility] | | | | | [facility] | | | | | LABORATORY | | | | + + + + + documented in this encounter Visit Diagnoses Not on filedocumented in this encounter"
--- OUTSIDE RECORDS SUMMARY | ~2019-08-21 | XMS | Encounter Summary ---
Demographics + + + | Address | [address] | | | [place] [address] | + + + | Home Phone | | + + + | Preferred Language | Unknown | + + + | Marital Status | | + + + | Pentecostalism Affiliation | 1041 | + + + | Race | Unknown | + + + | Ethnic Group | Unknown | + + + Author + + + | Author | [facility] | | | and Aknitana | + + + | Organization | [facility] | | | and Ankitana | + + + | Address | Unknown | + + + | Phone | Unavailable | + + + Support + + +---------+ + | Name | Relationship | Address | Phone | + + +---------+ + | Lizz Cruz | ECON | Unknown | | + + +---------+ + | Beckycarlos eduardo Cruz | ECON | Unknown | | + + +---------+ + Care Team Providers + +------+ + | Care Ladle Repairman Name | Role | Phone | + +------+ + | Yolanda Lee | PCP | | + +------+ + Encounter Details +--------+ + + + + | Date | Type | Department | Care Team | Description | +--------+ + + + + | 03/02/ | Hospital | [facility] | Jesse Siddiqi MD | Cellulitis and | | 2015 | Encounter | [facility] | [address], | abscess of hand, | | | | INFUSION [address] | [address] floor [place], | except fingers and | | | | Ave [place], [place] | [place] [address] | thumb; Bacteremia | | | | [address] | [phone] | due to Streptococcus | | | | [phone] | | / Sepsis | +--------+ + + + + Social History + + + +--------+------+ | Tobacco Use | Types | Packs/Day | Years | Date | | | | | Used | | + + + +--------+------+ | Current Every Day | Cigarettes | 1 | 20 | | | Smoker | | | | | + + + +--------+------+ + +---+---+---+ | Smokeless Tobacco: | | | | | Never Used | | | | + +---+---+---+ + + | Comments: She is a former cigarette smoker with a 1 pack per day for 20 years history. | | Now smoking 4 cigarrettes a day. Denies smokeless tobacco use. | + + + + +---------+ + | Alcohol Use | Drinks/Week | oz/Week | Comments | + + +---------+ + | No | | | She does not drink | | | | | alcohol. | + + +---------+ + + + + | Sex Assigned at [...] + + documented as of this encounter Last Filed Vital Signs + + + + + | Vital Sign | Reading | Time Taken | Comments | + + + + + | Blood Pressure | 113/64 | 03/02/2015 5:00 PM | | | | | PDT | | + + + + + | Pulse | 69 | 03/02/2015 5:00 PM | | | | | PDT | | + + + + + | Temperature | 37.4 C (99.4 F) | 03/02/2015 5:00 PM | | | | | PDT | | + + + + + | Respiratory Rate | 16 | 03/02/2015 5:00 PM | | | | | PDT | | + + + + + | Oxygen Saturation | - | - | | + + + + + | Inhaled Oxygen | - | - | | | Concentration | | | | + + + + + | Weight | - | - | | + + + + + | Height | - | - | | + + + + + | Body Mass Index | - | - | | + + + + + documented in this encounter Functional Status + + + + | Functional Status | Response | Date of Assessment | + + + + | Are you deaf or do you have serious | No | 12/27/2014 | | difficulty hearing? | | | + + + + | Are you blind or do you have serious | No | 12/27/2014 | | difficulty seeing, even when wearing | | | | glasses? | | | + + + + | Do you have serious difficulty walking or | No | 12/27/2014 | | climbing stairs? (5 years old or older) | | | + + + + | Do you have difficulty dressing or bathing? | No | 12/27/2014 | | (5 years old or older) | | | + + + + | Because of a physical, mental, or emotional | No | 12/27/2014 | | condition, do you have difficulty doing | | | | errands alone such as visiting a doctor's | | | | office or shopping? [15 years old or | | | | older)] | | | + + + + + + + + | Cognitive Status | Response | Date of Assessment | + + + + | Because of a physical, mental, or emotional | No | 12/27/2014 | | condition, do you have serious difficulty | | | | concentrating, remembering, or making | | | | decisions? (5 years old or older) | | | + + + + documented as of this encounter Medications at Time of Discharge + + + +---------+ + + | Medication | Sig | Dispensed | Refills | Start | End Date | | | | | | Date | | + + + +---------+ + + | FLUoxetine | Take 20 mg by mouth | | 0 | | | | (PROZAC) 20 mg | Daily. | | | | | | capsule | | | | | | + + + +---------+ + + | QUEtiapine | Take 100 mg by mouth | | 0 | | | | (SEROQUEL) 100 mg | nightly. | | | | | | tablet | | | | | | + + + +---------+ + + | aspirin 81 mg EC | Take 81 mg by mouth | | 0 | | | | tablet | Daily. | | | | 8 | + + + +---------+ + + | atorvaSTATin | Take 40 mg by mouth | | 0 | | | | (LIPITOR) 40 mg | nightly. | | | | 6 | | tablet | | | | | | + + + +---------+ + + | carvedilol (COREG) | Take 6.25 mg by | | 0 | | | | 6.25 mg tablet | mouth 2 times daily | | | | 8 | | | (with breakfast & | | | | | | | dinner). | | | | | + + + +---------+ + + | cefTRIAXone | Inject 2 g into the | | 0 | 02/25/20 | | | (ROCEPHIN) 2 g in | vein every 24 hours | | | 15 | 5 | | sodium chloride 0.9% | for 14 days. | | | | | | 50 mL IVPB | | | | | | + + + +---------+ + + | | Take 1-2 tablets by | 20 | 0 | 12/30/19 | | | HYDROcodone-acetamin | mouth every 4 hours | tablet | | 15 | 6 | | ophen (NORCO) 5-325 | as needed for Pain. | | | | | | mg per tablet | | | | | | + + + +---------+ + + | hydrOXYzine | Take 25 mg by mouth | | 0 | | | | hydrochloride | nightly as needed | | | | 6 | | (ATARAX) 10 mg | for Itching or | | | | | | tablet | Anxiety. | | | | | + + + +---------+ + + | lisinopril | Take 1 tablet by | 30 | 0 | 12/30/19 | | | (PRINIVIL, ZESTRIL) | mouth Daily. | tablet | | 15 | 6 | | 20 mg tablet | | | | | | + + + +---------+ + + documented as of this encounter [...] VO | | | | | | [place] [address] | | | | | | [phone] | | | | | | | | +--------+---------+ + + + | 10/28/ | Office | Cardiology | Carol, | | | 2019 | Visit | | SALVATORE Moreno [address] | | | | | | [place] | | | | | | [place] [address] | | | | | | [phone] | | | | | | | | +--------+---------+ + + + documented as of this encounter Visit Diagnoses + + | Diagnosis | + + | Cellulitis and abscess of hand, except fingers and thumb | + + | Bacteremia due to Streptococcus / Sepsis Bacteremia | + + documented in this encounter Administered Medications + +---------+ +------+-------+------+ | Medication Order | MAR | Action | Dose | Rate | Site | | | Action | Date | | | | + +---------+ +------+-------+------+ | cefTRIAXone (ROCEPHIN) 2 g in | New Bag | 03/02/20 | 2 g | 100 | | | sodium chloride 0.9% 50 mL IVPB | | 15 5:15 | | mL/hr | | | 2 g, Intravenous, Administer over | | PM PDT | | | | | 30 Minutes, EVERY 24 HOURS | | | | | | | (Daily), First dose on Marycarmen | | | | | | | 03/02/15 at 1710, For 14 days, | | | | | | | Keep in refrigerator. Do not give | | | | | | | calcium-containing IVs and TPN | | | | | | | via Y-site. Activate system and | | | | | | | mix before use., | | | | | | + +---------+ +------+-------+------+ +---+---+ | | | +---+---+ documented in this encounter Additional Health Concerns + + + + | Infection | Noted Time | Resolved Time | + + + + | Methicillin-resistant Staphylococcus aureus | 03/01/2015 1:42 PM | 06/11/2018 2:44 PM | | | PDT | PDT | + + + + documented as of this encounter"
--- OUTSIDE RECORDS SUMMARY | ~2019-08-21 | XMS | Encounter Summary ---
Demographics + + + | Address | [address] | | | [place] [address] | + + + | Home Phone | | + + + | Preferred Language | Unknown | + + + | Marital Status | | + + + | Buddhism Affiliation | 1041 | + + + | Race | Unknown | + + + | Ethnic Group | Unknown | + + + Author + + + | Author | [facility] | | | and Ankitana | + + + | Organization | [facility] | | | and Ankitana [...] Team Providers + +------+ + | Care Roofer Assistant Name | Role | Phone | + +------+ + | Kiran Oneill DO | PCP | | + +------+ + Reason for Visit +---------+ + | Reason | Comments | +---------+ + | Results | | +---------+ + Encounter Details +--------+ + + + + | Date | Type | Department | Care Team | Description | +--------+ + + + + | 05/21/ | Telephone | [facility] | Carol, | Results | | 2019 | | CARDIOLOGY [address] | SALVATORE Moreno [address] | | | | | [place], | [place], | | | | | [place] [address] | [place] [address] | | | | | [phone] | [phone] | | | | | | | | +--------+ + + + + Social History + + + +--------+------+ | Tobacco Use | Types | Packs/Day | Years | Date | | | | | Used | | + + + +--------+------+ | Current Every Day | Cigarettes | 0.25 | 20 | | | Smoker | | | | | + + + +--------+------+ + +---+---+---+ | Smokeless Tobacco: | | | | | Never Used | | | | + +---+---+---+ + + | Comments: states she is smoking 2-3 cigarettes/day now as she tries to quit. | + + + + +---------+ + [...] + + documented as of this encounter Functional Status + + + + | Functional Status | Response | Date of Assessment | + + + + | Are you deaf or do you have serious | No | 06/15/2018 | | difficulty hearing? | | | + + + + | Are you blind or do you have serious | No | 06/15/2018 | | difficulty seeing, even when wearing | | | | glasses? | | | + + + + | Do you have serious difficulty walking or | No | 06/15/2018 | | climbing stairs? (5 years old or older) | | | + + + + | Do you have difficulty dressing or bathing? | No | 06/15/2018 | | (5 years old or older) | | | + + + + | Because of a physical, mental, or emotional | No | 06/15/2018 | | condition, do you have difficulty [...] physical, mental, or emotional | No | 06/15/2018 | | condition, do you have serious [...] | | | | | [place] [address] | | | | | | [phone] | | | | | | | | +--------+---------+ + + + | 10/28/ | Office | Cardiology | Carol, | | | 2019 | Visit | | SALVATORE Moreno [address] | | | | | | [place] | | | | | | [place] [address] | | | | | | [phone] | | | | | | | | +--------+---------+ + + + + +------+--------+ + + | Name | Type | Priori | Associated Diagnoses | Order Schedule | | | | ty | | | + +------+--------+ + + | Basic Metabolic | Lab | Routin | Ischemic | 1 Occurrences | | Panel | | e | cardiomyopathy | starting 05/26/2019 | | | | | | until 05/25/2020 | + +------+--------+ + + documented as of this encounter Visit Diagnoses + + | Diagnosis | + + | Ischemic cardiomyopathy - Primary Other specified forms of chronic ischemic heart | | disease | + + documented in this encounter"
--- OUTSIDE RECORDS SUMMARY | ~2019-08-21 | XMS | Encounter Summary ---
Demographics + + + | Address | [address] | | | [place] [address] | + + + | Home Phone | | + + + | Preferred Language | Unknown | + + + | Marital Status | | + + + | Catholic Affiliation | 1041 | + + + | Race | Unknown | + + + | Ethnic Group | Unknown | + + + Author + + + | Author | [facility] | | | and Ankitana | + + + | Organization | [facility] | | | and Ankitana | [...] Team Providers + +------+ + | Care Nibbler Operator Name | Role | Phone | + +------+ + PCP | Unavailable | + +------+ + Encounter Details +--------+ + + + + | Date | Type | Department | Care Team | Description | +--------+ + + + + | 05/15/ | Orders Only | [facility] | Joe Plummer | | | 2008 | | [facility] | M, PA-C [address] | | | | | LABORATORY [address] | [place] | | | | | [address] [place] | [address] | | | | | [address] | | | | | | [phone] | | | +--------+ + + + [...] | | | | | | [address] | | | | | | [place] [address] | | | | | | [phone] | | | | | | | | +--------+---------+ + + + | 10/28/ | Office | Cardiology | Carol, | | | 2019 | Visit | | SALVATORE Moreno [address] | | | | | | [place], | | | | | | [place] [address] | | | | | | [phone] | | | | | | | | +--------+---------+ + + + documented as of this encounter Procedures + +--------+ + + + | Procedure Name | Priori | Date/Time | Associated Diagnosis | Comments | | | ty | | | | + +--------+ + + + | CULTURE, BODY FLUID, | Routin | 05/15/2009 | | Results for this | | STERILE, SMEAR, | e | 10:45 AM | | procedure are in the | | WITH ANAEROBES | | PDT | | results section. | + +--------+ + + + documented in this encounter Results Culture, Body Fluid, Sterile, Smear, with Anaerobes (05/15/2009 10:45 AM PDT) + + + + + + | Component | Value | Ref Range | Performed | Pathologist | | | | | At | Signature | + + + + + + | Specimen | Elbow RIGHT | | [facility] | | | Source | | [facility] | | | | | | [facility] | | + + + + + + | Gram Stain | No NeutrophilsNo | | [facility] | | | | Squamous Epithelial | | [facility] | | | | CellsNo Organisms | | [facility] | | | | Seen=====CULTURE | | LABORATORY | | | | RESULTS===== | | | | + + + + + + | RESULT | No Growth | | [facility] | | | | [...] + + + + | Status | 05/17/2009 Final | | [facility] | | | [...] + + + | [facility] | [address] | [place] [address] | | | [facility] | | | | | LABORATORY | | | | + + + + + | [facility] | | | | | [facility] | | | | | LABORATORY | | | | + + + + + documented in this encounter Visit Diagnoses Not on filedocumented in this encounter"
--- OUTSIDE RECORDS SUMMARY | ~2019-08-21 | XMS | Encounter Summary ---
Demographics + + + | Address | [address] | | | [place] [address] | + + + | Home Phone | | + + + | Preferred Language | Unknown | + + + | Marital Status | | + + + | Mandaeism Affiliation | 1041 | + + + | Race | Unknown | + + + | Ethnic Group | Unknown | + + + Author + + + | Author | [facility] | | | and Ankitana | + + + | Organization | [facility] | | | and Ankitana [...] Team Providers + +------+ + | Care Media Production Manager Name | Role | Phone | + +------+ + PCP | Unavailable | + +------+ + Encounter Details +--------+ + + + + | Date | Type | Department | Care Team | Description | +--------+ + + + + | 05/11/ | Hospital | [facility] | Derick Baca, | | | 2006 | Encounter | [facility] | MD Rashad Patterson | | | | | CENTER [address] | | | | [address] | [place] [address] | | | | | [place] | [phone] | | | | | [address] | | | | | | [phone] | | | +--------+ + + + [...] | | | | | | [place] [address] | | | | | | [phone] | | | | | | | | +--------+---------+ + + + | 10/28/ | Office | Cardiology | Carol, | | | 2019 | Visit | | SALVATORE Moreno [address] | | | | | | [place], | | | | | | [place] [address] | | | | | | [phone] | | | | | | | | +--------+---------+ + + + documented as of this encounter Visit Diagnoses Not on filedocumented in this encounter"
--- OUTSIDE RECORDS SUMMARY | ~2019-08-21 | XMS | Encounter Summary ---
Demographics + + + | Address | [address] | | | [place] [address] | + + + | Home Phone | | + + + | Preferred Language | Unknown | + + + | Marital Status | | + + + | Mu-Ism Affiliation | 1041 | + + + | Race | Unknown | + + + | Ethnic Group | Unknown | + + + Author + + + | Author | [facility] | | | and Ankitana | + + + | Organization | [facility] | | | and [...] Team Providers + +------+ + | Care Rubble Placer Name | Role | Phone | + +------+ + | Yolanda Lee | PCP | | + +------+ + Reason for Visit + + + | Reason | Comments | + + + | Follow-up | | + + + Encounter Details +--------+ + + + + | Date | Type | Department | Care Team | Description | +--------+ + + + + | 06/19/ | Telephone | [facility] | Hector Decker | Follow-up | | 2018 | | [facility] | [address] | | | | | [facility] [address] | [address] | | | | | [address] | [place] [address] | | | | | [place], [place] | [phone] | | | | | [address] | | | | | | [phone] | | | +--------+ + + + [...] | | | | | [place] [address] | | | | | | [phone] | | | | | | | | +--------+---------+ + + + | 10/28/ | Office | Cardiology | Carol, | | | 2019 | Visit | | SALVATORE Moreno [address] | | | | | | [place] | | | | | | [place] [address] | | | | | | [phone] | | | | | | | | +--------+---------+ + + + documented as of this encounter Visit Diagnoses Not on filedocumented in this encounter"
--- OUTSIDE RECORDS SUMMARY | ~2019-08-21 | XMS | Encounter Summary ---
Demographics + + + | Address | [address] | | | [place] [address] | + + + | Home Phone | | + + + | Preferred Language | Unknown | + + + | Marital Status | | + + + | Congregational Affiliation | 1041 | + + + | Race | Unknown | + + + | Ethnic Group | Unknown | + + + Author + + + | Author | [facility] | | | and Ankitana | + + + | Organization | [facility] | [...] Team Providers + +------+ + | Care Country Sales Manager Name | Role | Phone | + +------+ + | Kiran Oneill DO | PCP | | + +------+ + Encounter Details +--------+ + + + + | Date | Type | Department | Care Team | Description | +--------+ + + + + | 06/15/ | Abstract | [facility] | Carol, | | | 2019 | | CARDIOLOGY [address] | Tiffanie CLIENT RELATIONSHIP EXECUTIVE [address] | | | | | [place], | [place], | | | | | [place] [address] | [place] [address] | | | | | [phone] | [phone] | | | | | | | [...] | | | | | | [place] | | | | | | [place] [address] | | | | | | [phone] | | | | | | | | +--------+---------+ + + + | 10/28/ | Office | Cardiology | Carol, | | | 2019 | Visit | | SALVATORE Moreno [address] | | | | | | [place], | | | | | | [place] [address] | | | | | | [phone] | | | | | | | | +--------+---------+ + + + documented as of this encounter Visit Diagnoses Not on filedocumented in this encounter"
--- OUTSIDE RECORDS SUMMARY | ~2019-08-21 | XMS | Encounter Summary ---
Demographics + + + | Address | [address] | | | [place] [address] | + + + | Home Phone | | + + + | Preferred Language | Unknown | + + + | Marital Status | | + + + | Jewish Affiliation | 1041 | + + + | Race | Unknown | + + + | Ethnic Group | Unknown | + + + Author + + + | Author | [facility] | | | and Ankitana | + + + | Organization | [facility] | | | and Ankitana [...] Team Providers + +------+ + | Care Formation Fracturing Operator Name | Role | Phone | + +------+ + | Yolanda Lee | PCP | | + +------+ + Encounter Details +--------+ + + + + | Date | Type | Department | Care Team | Description | +--------+ + + + + | 03/09/ | Hospital | [facility] | Jesse Siddiqi MD | Cellulitis and | | 2015 | Encounter | [facility] | [address], | abscess of hand, | | | | INFUSION [address] | [address] floor [place], | except fingers and | | | | [address] [place], [place] | [place] [address] | thumb; Bacteremia | | | | [address] | [phone] | due to Streptococcus | | | | [phone] | | / Sepsis | +--------+ + [...] + + + | Blood Pressure | 116/69 | 03/09/2015 4:50 PM | | | | | PDT | | + + + + + | Pulse | 70 | 03/09/2015 4:50 PM | | | | | PDT | | + + + + + | Temperature | 37.2 C (99 F) | 03/09/2015 4:50 PM | | | | | PDT | | + + + + + | Respiratory Rate | 16 | 03/09/2015 4:50 PM | | | | | PDT | | + + + + + | Oxygen Saturation | 96% | 03/09/2015 4:50 PM | | | | | PDT [...] | | | | | [place] [address] | | | | | | [phone] | | | | | | | | +--------+---------+ + + + | 10/28/ | Office | Cardiology | Carol, | | | 2019 | Visit | | SALVATORE Moreno [address] | | | | | | [place] | | | | | | [place] [address] | | | | | | [phone] | | | | | | | [...] 2 g in | New Bag | 03/09/20 | 2 g | 100 | | | sodium chloride 0.9% 50 mL IVPB | | 15 4:53 | | mL/hr | | | 2 g, Intravenous, Administer over | | PM PDT | | | | | 30 Minutes, EVERY 24 HOURS | | | | | | | (Daily), First dose on Marycarmen 03/09/15 | | | | | | | at 1705, For 14 days, Keep in | | | | | | | refrigerator. Do not give | | | [...]
--- OUTSIDE RECORDS SUMMARY | ~2019-08-21 | XMS | Encounter Summary ---
Demographics + + + | Address | [address] | | | [place] [address] | + + + | Home Phone | | + + + | Preferred Language | Unknown | + + + | Marital Status | | + + + | Jainism Affiliation | 1041 | + + + | Race | Unknown | + + + | Ethnic Group | Unknown | + + + Author + + + | Author | [facility] | | | and Ankitana | + + + | Organization | [facility] | | | and [...] Team Providers + +------+ + | Care Electrical Engineer Mep Name | Role | Phone | + +------+ + | Yolanda Lee | PCP | | + +------+ + Encounter Details +--------+---------+ + + + | Date | Type | Department | Care Team | Description | +--------+---------+ + + + | 09/11/ | Office | [facility] | Myriam Ortega | Multiple closed | | 2016 | Visit | [place] [address] | [address] | fractures of pelvis | | | | [address] [place], | [place] | without disruption | | | | [place] [address] | [place] [address] | of pelvic ring with | | | | [phone] | [phone] | routine healing | | | | | | (Primary Dx) | +--------+---------+ + + + Social History [...] + documented as of this encounter Progress Notes Laura Marion RN - 09/12/2016 10:08 AM PSTNo show letter sent. Myriam Urias MD - 09/11/2016 3:03 P M PSTPatient did not present for her primary care visit following recent ER/hospitalization. RNCN to please attempt contact with this patient by phone or mail, advising on other prima ry care options if this clinic is not convenient. documented in this encounter Plan of Treatment [...] | | | | | [place] [address] | | | | | | [phone] | | | | | | | | +--------+---------+ + + + | 10/28/ | Office | Cardiology | Carol, | | | 2019 | Visit | | SALVATORE Moreno [address] | | | | | | [place], | | | | | | [place] [address] | | | | | | [phone] | | | | | | | | +--------+---------+ + + + documented as of this encounter Visit Diagnoses + + | Diagnosis | + + | Multiple closed fractures of pelvis without disruption of pelvic ring with routine | | healing - Primary | + + documented in this encounter Additional Health Concerns + + + + | Infection | Noted Time | Resolved Time | + + + + | Methicillin-resistant Staphylococcus aureus | 03/01/2015 1:42 PM | 06/11/2018 2:44 PM | | | PDT | PDT | + + + + documented as of this encounter"
--- OUTSIDE RECORDS SUMMARY | ~2019-08-21 | XMS | Encounter Summary ---
Demographics + + + | Address | [address] | | | [place] [address] | + + + | Home Phone | | + + + | Preferred Language | Unknown | + + + | Marital Status | | + + + | Tenriism Affiliation | 1041 | + + + | Race | Unknown | + + + | Ethnic Group | Unknown | + + + Author + + + | Author | [facility] | | | and Ankitana | + + + | Organization | [facility] | | | and Ankitana [...] Providers + +------+ + | Care Clinical Phlebotomist Name | Role | Phone | + [...] [address] | | | | | [place] [address] | [facility] | | | | | [facility] | [place] [address] | | | | | [place] | [phone] | | | | | [address] | | | | | | [phone] | | | +--------+ + + + [...] | | | | | | [place] [address] | | | | | | [phone] | | | | | | | | +--------+---------+ + + + | 10/28/ | Office | Cardiology | Carol, | | | 2019 | Visit | | SALVATORE Moreno [address] | | | | | | [place], | | | | | | [place] [address] | | | | | | [phone] | | | | | | | | +--------+---------+ + + + documented as of this encounter Visit Diagnoses Not on filedocumented in this encounter"
--- OUTSIDE RECORDS SUMMARY | ~2019-08-21 | XMS | Encounter Summary ---
Demographics + + + | Address | [address] | | | [place] [address] | + + + | Home Phone | | + + + | Preferred Language | Unknown | + + + | Marital Status | | + + + | Congregation Affiliation | 1041 | + + + | Race | Unknown | + + + | Ethnic Group | Unknown | + + + Author + + + | Author | [facility] | | | and Ankitana | + + + | Organization | [facility] | | [...] Team Providers + +------+ + | Care Banbury Mixer Operator Name | Role | Phone | + +------+ + | Kiran Oneill DO | PCP | | + +------+ + Reason for Visit + + + | Reason | Comments | + + + | CPAP Follow Up | | + + + Encounter Details +--------+---------+ + + + | Date | Type | Department | Care Team | Description | +--------+---------+ + + + | 05/20/ | Office | [facility] | Jessy Agarwal MD | History of anemia | | 2019 | Visit | SLEEP DISORDER [address] | [address] | (Primary Dx) | | | | [address] [place] | [place] | | | | | [place] [address] | [address] | | | | | [phone] | | | +--------+---------+ + + + Social History [...] this encounter Last Filed Vital Signs + +---------+ + + | Vital Sign | Reading | Time Taken | Comments | + +---------+ + + | Blood Pressure | 150/90 | 05/20/2019 9:52 AM | | | | | PDT | | + +---------+ + + | Pulse | 52 | 05/20/2019 9:52 AM | | | | | PDT | | + +---------+ + + | Temperature | - | - | | + +---------+ + + | Respiratory Rate | 16 | 05/20/2019 9:52 AM | | | | | PDT | | + +---------+ + + | Oxygen Saturation | 96% | 05/20/2019 9:52 AM | | | | | PDT | | + +---------+ + + | Inhaled Oxygen | - | - | | | Concentration | | | | + +---------+ + + | Weight | - | - | | + +---------+ + + | Height | - | - | | + +---------+ + + | Body Mass Index | - | - | | + +---------+ + + documented in this encounter Functional [...] of this encounter Patient Instructions Patient Instructions Jessy Agarwal MD - 05/20/2019 10:00 AM PDT- We will send a prescripti on for CPAP machine to your home care company. - Please start using your CPAP as directed. - Follow up with [facility] within 1-2 weeks. - Follow up with Dr. Agarwal in 6-7 weeks. - Insurance compliance criteria: Once you received your machine, you have 90 days in which you must use your machine for 30 consecutive days and for 70% of those 30 days you must use your machine for >= 4 hours. A M PDT documented in this encounter Progress Notes Jessy Agarwal MD - 05/20/2019 10:00 AM PDT The patient comes in to discuss sleep study results. My interpretation of the patient's s leep study, which I have reviewed with the patient, is as follows: Polysomnogram Report on Smitha Pichardo performed on March 10, 2019 PATIENT IDENTIFICATION: Smitha Pichardo IS a 63 y.o..-year-old female. with a history of coronary artery disea se with ischemic cardiomyopathy,h/sarkis cardiac arrest post stenting in 2011, hyperlipidem ia, tobacco use, depression, chronic kidney disease,presenting with snoring, witnessed a pnea, awakening with choking, frequent awakenings at night, nocturia for evaluation of obstr uctive sleep apnea. BMI: 28 Technical Information: Please see technical data which is attached. Definitions (The AASM Manual for the Scoring of Sleep and Associated Events, Version 2.5; 2 018): Apnea: There is a drop in the peak signal excursion by 90% or greater of pre-delroy nt baseline using an oronasal thermal sensor (diagnostic study), PAP device flow (titration study), or an alternative apnea sensor (diagnostic study); the duration of the 90% or greate r drop in sensor signal is 10 seconds or longer. Obstructive Apnea: Event associated with continued or increased inspi ratory effort throughout the entire period of absent airflow. Central Apnea: Event associated with absent inspiratory effort throug hout the entire period of absent airflow. Mixed Apnea: Event associated with absent inspiratory effort in the i nitial portion of the event followed by resumption of inspiratory effort during the second p ortion of the event. Hypopnea:Nasal pressure excursion drop by 30% or more from baseline, lasting at lease 10 seconds and 90% of the event's duration meets this amplitude criteria. This is asso ciated with a 4% or greater desaturation from pre-baseline Respiratory Event Related Arousal: A sequence of breaths lasting 10 seconds or l onger characterized by increasing respiratory effort or by flattening of the inspiratory por tion of the nasal pressure (diagnostic study) or PAP device flow (titration study) waveform leading to arousal from sleep when the sequence of breaths does not meet criteria for an it risk analyst ea or hypopnea. SLEEP STUDY HISTORY: None. REVELANT MEDICATIONS: Quetiapine, Fluoxetine, and lorazepam as needed. SUBJECTIVE: The patient rated sleep quality during sleep study as usual. Plant Operations Engineer note: patient tried and tolerated medium airfit p10 mask. She may need a chin st mello for mouth leak. SLEEP ARCHITECTURE AND EEG: Total sleep time was 485 minutes. Sleep efficiency was 89.2% and was within normal limi ts. Sleep onset latency was 14.5 minutes and was within normal limits. REM latency was 86.5 minutes and was within normal limits. Percent of time in stage N3 was 7.2% and was decreased. Percent of time in stage REM was 11.3 % and was decreased. Arousal Index for this diagnostic study was 19.8/hour and was mildly increased, with 13 respiratory arousals/hour and 5.3 spontaneous arousals/hour. RESPIRATORY: Respiratory disturbance index (RDI) was 18.3, consisting of total 61 hypopneas, 4 obstru ctive apneas, 0 mixed apneas, and 6 central apneas and 77 RERAs. AHI was 8.8 and was mildly elevated. Sleep disordered breathing was worsened in supine position with supine AHI of 14.5 and RDI of 27. Patient spent 55.4% of total sleep time in supine position. Nonsupine AHI was 1 .7 and nonsupine RDI was 7.5. Sleep disordered breathing was worsened in REM sleep with REM AHI and RDI of 21.8. Non- REM AHI was 7.1 and normal REM RDI was 17.9.. Mean SpO2 was 93 %, daryl SpO2 was 79%, and amount of total sleep time spent below SpO2 of 88% was 19.5 minutes. 4% Oxygen Desaturation Index (SIERRA) was 8.2 and was mildly elevated. Snoring was mild in nonsupine position, and mild to moderate in supine position. ETCO2 and TCO2 were not elevated. Claudy-Victoria breathing was not observed. LIMB MOVEMENTS: Total sleep periodic limb movement index was 33 and was mildly to moderately increased. These limb movements were significantly associated with respiratory event related arous als. EKG: Normal sinus rhythm was noted with mean heart rate of 58, 56, 58 beats per minute in wake, non-REM, and REM sleep respectively.. INTERPRETATION: - This polysomnography showed sleep apnea which was obstructive in nature, and it was mild in frequency of events, and mild in frequency of desaturations. Sleep apnea was worsened in supine position and in stage R sleep. 55.4% Supine sleep, and 11.3% of stage R sleep was c aptured. Daryl SpO2 was 79%, and amount of total sleep time spent below SpO2 of 88% was 19.5 minutes. hypoventilation was not observed. - Sleep efficiency was normal, and sleep was mildly fragmented. - Periodic limb movement index was mildly to moderately elevated, and these limb movements were not significantly associated with respiratory event related arousals. RECOMMENDATIONS: 1. A trial of auto-PAP at 5-15 cm H2O with a medium airfit p10 mask. 2. Clinical correlation for excessive leg movements Today, I discussed the above results in detail with patient and her daughter. . discussed h ealth risks associated with obstructive sleep apnea, Which in mild sleep apnea is unlikely compared to moderate to severe obstructive sleep apnea. However, though she has mild obstr uctive sleep apnea, she might notice improvement in her symptoms by treating her sleep apnea . she is interested in trial of CPAP. Insurance compliance criteria was discussed. she felt she slept better in the sleep lab. I reminded her that the reason might be the bed room being darker, and her not watching ghost hunting shows right at bedtime. She laughed a nd agreed. she has restless legs at bedtime, it can keep her from falling asleep. It has been going o n for a long time. She has history of anemia. She used to take iron supplement for a while but because of constipation she stopped taking it. She denies having blood loss, but she n ever had colonoscopy. She eats meat, but she agrees that she probably doesn't have good abs orption. She is also on other medications such as fluoxetine and quetiapine which can exace rbate restless legs. I discussed that pathophysiology of RLS is not well understood, but sh e might benefit from taking iron supplement again. She can also try iron infusion, but she rathers take the pill. We will check her ferritin level today. Vitals: 05/20/19 0952 BP: 150/90 Pulse: 52 Resp: 16 PainSc: 7 Plan: Start auto CPAP at 5-15 cm H2O with patient's preference mask. Follow-up with [facility] Sears in 1-2 weeks after starting Pap therapy. Follow-up with Dr. Agarwal in 6-7 weeks. Ferritin. I spent 25 minutes face to face with the patient, with over 50% spent in counseling and/or coordination of care regarding sleep apnea and RLS. documented in this enco unter Plan of Treatment +--------+---------+ + + + | Date | Type | Specialty | Care Team | Description | +--------+---------+ + + + | 09/01/ | Office | Gastroenterology | Aba Gonsalez | | | 2018 | Visit | | MD George [address] | | | | | | [address] | | | | | | [place] [address] | | | | | | [phone] | | | | | | | | +--------+---------+ + + + | 10/28/ | Office | Cardiology | Carol, | | | 2019 | Visit | | SALVATORE Moreno [address] | | | | | | [place], | | | | | | [place] [address] | | | | | | [phone] | | | | | | | | +--------+---------+ + + + + +------+--------+ + + | Name | Type | Priori | Associated Diagnoses | Order Schedule | | | | ty | | | + +------+--------+ + + | Ferritin | Lab | Routin | History of anemia | 1 Occurrences | | | | e | | starting 05/20/2019 | | | | | | until 05/19/2020 | + +------+--------+ + + documented as of this encounter Visit Diagnoses + + | Diagnosis | + + | History of anemia - Primary Personal history of diseases of blood and blood-forming | | organs | + + documented in this encounter"
--- OUTSIDE RECORDS SUMMARY | ~2019-08-21 | XMS | Encounter Summary ---
Demographics + + + | Address | [address] | | | [place] [address] | + + + | Home Phone | | + + + | Preferred Language | Unknown | + + + | Marital Status | | + + + | Zoroastrian Affiliation | 1041 | + + + | Race | Unknown | + + + | Ethnic Group | Unknown | + + + Author + + + | Author | [facility] | | | and Ankitana | + + + | Organization | [facility] | | | and [...] Team Providers + +------+ + | Care Powder Worker Tnt Name | Role | Phone | + +------+ + PCP | Unavailable | + +------+ + Encounter Details +--------+ + + + + | Date | Type | Department | Care Team | Description | +--------+ + + + + | 03/15/ | Hospital | [facility] | Geovanni Milan MD | | | 2009 | Encounter | [facility] | [address] | | | | | CENTER [address] | [place], [place] | | | | | [address] | [address] | | | | | [place] | | | | | | [address] | | | | | | [phone] | | | +--------+ + + + [...] | | | | | | [place] [address] | | | | | | [phone] | | | | | | | | +--------+---------+ + + + | 10/28/ | Office | Cardiology | Carol, | | | 2019 | Visit | | SALVATORE Moreno [address] | | | | | | [place], | | | | | | [place] [address] | | | | | | [phone] | | | | | | | | +--------+---------+ + + + documented as of this encounter Visit Diagnoses Not on filedocumented in this encounter"
--- OUTSIDE RECORDS SUMMARY | ~2019-08-21 | XMS | Encounter Summary ---
Demographics + + + | Address | [address] | | | [place] [address] | + + + | Home Phone | | + + + | Preferred Language | Unknown | + + + | Marital Status | | + + + | Cheondoism Affiliation | 1041 | + + + | Race | Unknown | + + + | Ethnic Group | Unknown | + + + Author + + + | Author | [facility] | | | and Ankitana | + + + | Organization | [facility] | | | and [...] Team Providers + +------+ + | Care Open Claims Representative Name | Role | Phone | + +------+ + PCP | Unavailable | + +------+ + Encounter Details +--------+ + + + + | Date | Type | Department | Care Team | Description | +--------+ + + + + | 08/19/ | Hospital | [facility] | [place], | | | 2005 - | Encounter | [facility] | [facility] [place] | | | | | [address] | [address] | | | 08/20/ | | [address] | [address] [place] | | | 2005 | | [place] | [address] | | | | | [address] | | | | | | [phone] | | | +--------+ + + + [...] | | | | | | [place] [address] | | | | | | [phone] | | | | | | | | +--------+---------+ + + + | 10/28/ | Office | Cardiology | Carol, | | | 2019 | Visit | | SALVATORE Moreno [address] | | | | | | [place], | | | | | | [place] [address] | | | | | | [phone] | | | | | | | | +--------+---------+ + + + documented as of this encounter Visit Diagnoses Not on filedocumented in this encounter"
--- OUTSIDE RECORDS SUMMARY | ~2019-08-21 | XMS | Encounter Summary ---
Demographics + + + | Address | [address] | | | [place] [address] | + + + | Home Phone | | + + + | Preferred Language | Unknown | + + + | Marital Status | | + + + | Jewish Affiliation | 1041 | + + + | Race | Unknown | + + + | Ethnic Group | Unknown | + + + Author + + + | Author | [facility] | | | and Ankitana | + + + | Organization | [facility] | | | and Ankitana [...] Team Providers + +------+ + | Care Research Professor Name | Role | Phone | [...] [address] | | | | | [place] [address] | [place] [address] | | | | | [place] | [phone] | | | | | [place] | | | | | | [address] | | | | | | [phone] | | | +--------+ + + + [...] | | | | | | [place] [id number] | | | | | | [phone] | | | | | | | | +--------+---------+ + + + | 10/28/ | Office | Cardiology | Carol, | | | 2019 | Visit | | SALVATORE Moreno [address] | | | | | | [place], | | | | | | [place] [address] | | | | | | [phone] | | | | | | | | +--------+---------+ + + + documented as of this encounter Visit Diagnoses Not on filedocumented in this encounter"
--- OUTSIDE RECORDS SUMMARY | ~2019-08-21 | XMS | Encounter Summary ---
Demographics + + + | Address | [address] | | | [place] [address] | + + + | Home Phone | | + + + | Preferred Language | Unknown | + + + | Marital Status | | + + + | Jew Affiliation | 1041 | + + + | Race | Unknown | + + + | Ethnic Group | Unknown | + + + Author + + + | Author | [facility] | | | and Ankitana | + + + | Organization | [facility] | | | and Ankitana [...] Team Providers + +------+ + | Care Shrink Pit Operator Name | Role | Phone | + +------+ + | Yolanda Lee | PCP | | + +------+ + Encounter Details +--------+ + + + + | Date | Type | Department | Care Team | Description | +--------+ + + + + | 03/05/ | Hospital | [facility] | Jesse Siddiqi MD | Cellulitis and | | 2015 | Encounter | [facility] | [address], | abscess of hand, | | | | [facility] [address] | [address] floor [place], | except fingers and | | | | [address] [place], | [place] [address] | thumb; Bacteremia | | | | [place] [address] | [phone] | due to Streptococcus | | | | [phone] | | / Sepsis | +--------+ + [...] + + + | Blood Pressure | 145/88 | 03/05/2015 5:50 PM | | | | | PDT | | + + + + + | Pulse | 81 | 03/05/2015 5:50 PM | | | | | PDT | | + + + + + | Temperature | 36.6 C (97.8 F) | 03/05/2015 5:50 PM | | | | | PDT | | + + + + + | Respiratory Rate | 16 | 03/05/2015 5:50 PM | | | | | PDT | | + + + + + | Oxygen Saturation | 92% | 03/05/2015 5:50 PM | | | | | PDT | | + + + + + | Inhaled Oxygen | - | - | | | Concentration | | | | + + + + + | Weight | 64.7 kg (142 lb 10.2 | 03/05/2015 5:50 PM | | | | oz) | PDT | | + + + + + | Height | 172.7 cm (5' 8") | 03/05/2015 5:50 PM | | | | | PDT | | + + + + + | Body Mass Index | 21.69 | 03/05/2015 5:50 PM | | | | | PDT [...] documented as of this encounter Progress Notes Naya Oliveira RN - 03/05/2015 6:41 PM PDTRocephin infused over 30 minutes. Started 1810 and stopped at 1840. Pt left the floor at 1845. 6: 43 PM PDTdocumented in this encounter Plan of [...] | | | | | [place] [address] | | | | | | [phone] | | | | | | | | +--------+---------+ + + + | 10/28/ | Office | Cardiology | Carol, | | | 2019 | Visit | | SALVATORE Moreno [address] | | | | | | [place], | | | | | | [place] [address] | | | | | | [phone] | | | | | | | [...] 2 g in | New Bag | 03/05/20 | 2 g | 100 | | | sodium chloride 0.9% 50 mL IVPB | | 15 6:08 | | mL/hr | | | 2 g, Intravenous, Administer over | | PM PDT | | | | | 30 Minutes, EVERY 24 HOURS | | | | | | | (Daily), First dose on Sun | | | | | | | 03/05/15 at 1815, For 14 days, | | | | [...]
--- OUTSIDE RECORDS SUMMARY | ~2019-08-21 | XMS | Encounter Summary ---
Demographics + + + | Address | [address] | | | [place] [address] | + + + | Home Phone | | + + + | Preferred Language | Unknown | + + + | Marital Status | | + + + | Holiness Affiliation | 1041 | + + + | Race | Unknown | + + + | Ethnic Group | Unknown | + + + Author + + + | Author | [facility] | | | and Ankitana | + + + | Organization | [facility] | | | and [...] Team Providers + +------+ + | Care Narcotics Investigator Name | Role | Phone | + +------+ + PCP | Unavailable | + +------+ + Encounter Details +--------+ + + + + | Date | Type | Department | Care Team | Description | +--------+ + + + + | 12/28/ | Hospital | [facility] | Edgar Santamaria, | | | 2005 | Encounter | [facility] | [address] | | | | | [address] | [place] [address] | | | | | [place] | [phone] | | | | | [place] | | | | | | [address] | | | | | | [phone] | | | +--------+ + + + [...] | | | | | | [place] [address] | | | | | | [phone] | | | | | | | | +--------+---------+ + + + | 10/28/ | Office | Cardiology | Carol, | | | 2019 | Visit | | SALVATORE Moreno [address] | | | | | | [place], | | | | | | [place] [address] | | | | | | [phone] | | | | | | | | +--------+---------+ + + + documented as of this encounter Visit Diagnoses Not on filedocumented in this encounter"
--- OUTSIDE RECORDS SUMMARY | ~2019-08-21 | XMS | Encounter Summary ---
Demographics + + + | Address | [address] | | | [place] [address] | + + + | Home Phone [...] + | Author | [facility] | | | and Ankitana | + + + | Organization | [facility] | | | and Ankitana [...] Team Providers + +------+ + | Care Operations Developer Name | Role | Phone | + +------+ + | Yolanda Lee | PCP | | + +------+ + Reason for Visit + + + | Reason | Comments | + + + | Fever (9 Weeks To 74 | | | Years) | | + + + | Chills | | + + + Auth/Cert +--------+--------+ + + + + | Status | Reason | Specialty | Diagnoses / | Referred By | Referred To | | | | | Procedures | Contact | Contact | +--------+--------+ + + + + | Closed | | | Diagnoses | | [facility] | | | | | | | [facility] [address] | | | | | Hyponatremia | | [address] | | | | | Cellulitis | | [place] | | | | | and abscess | | [phone] | | | | | UTI (lower | | Phone: | | | | | urinary | | [phone] | | | | | tract | | Fax: | | | | | infection) | | [phone] | | | | | Methamphetam | | | | | | | ine use | | | | | | | ([facility]) GILDARDO | | | | | | | (acute | | | | | | | kidney | | | | | | | injury) | | | | | | | ([facility]) | | | | | | | Sepsis, due | | | | | | | to | | | | | | | unspecified | | | | | | | organism | | | | | | | | | | +--------+--------+ + + + + Encounter Details +--------+ + + + + | Date | Type | Department | Care Team | Description | +--------+ + + + + | 02/22/ | Hospital | [facility] | Marco Hale MD | Sepsis, due to | | 2015 - | Encounter | [facility] | [address] | unspecified organism | | | | [facility] | [place] [id number] | ([facility]) (Primary Dx); | | 02/24/ | | [address] [place], | [phone] | Cellulitis and | | 2014 | | [place] [address] | | abscess; | | | | [phone] | Sussy Pitt, | Hyponatremia; UTI | | | | | [address] | (lower urinary tract | | | | | [address] | infection); [place] | | | | | [place] [address] | (acute kidney | | | | | [phone] | injury) ([facility]); | | | | | | Methamphetamine use; | | | | | Fernanda Siddiqi MD 101 | Bipolar affective | | | | | [address] | disorder, current | | | | | floor [place] | episode depression, | | | | | [id number] | unspecified severity | | | | | | ([facility]); Heroin | | | | | | dependence ([facility]); | | | | | | Other and | | | | | | unspecified | | | | | | hyperlipidemia; | | | | | | Personal history of | | | | | | tobacco use, | | | | | | presenting hazards | | | | | | to health; | | | | | | Unspecified | | | | | | essential | | | | | | hypertension; | | | | | | Cellulitis and | | | | | | abscess of hand, | | | | | | except fingers and | | | | | | thumb; Bacteremia | | | | | | due to Streptococcus | +--------+ + + + + Social [...] + | Tobacco Cessation: Ready to Quit: YesComments: She is a former cigarette smoker with a 1 | | pack per day for 20 years history. Now smoking 4 cigarrettes a day. Denies smokeless | | tobacco use. | + + + + [...] + + + | Blood Pressure | 164/93 | 02/24/2015 11:00 AM | | | | | PDT | | + + + + + | Pulse | 64 | 02/24/2015 11:05 AM | | | | | PDT | | + + + + + | Temperature | 36.7 C (98 F) | 02/24/2015 11:05 AM | | | | | PDT | | + + + + + | Respiratory Rate | 16 | 02/24/2015 11:00 AM | | | | | PDT | | + + + + + | Oxygen Saturation | 96% | 02/24/2015 11:05 AM | | | | | PDT | | + + + + + | Inhaled Oxygen | - | - | | | Concentration | | | | + + + + + | Weight | 63.6 kg (140 lb 3.4 | 02/24/2015 1:31 AM | | | | oz) | PDT | | + + + + + | Height | 172.7 cm (5' 7.99") | 02/22/2015 8:19 AM | | | | | PDT | | + + + + + | Body Mass Index | 21.32 | 02/22/2015 8:19 AM | | | | | PDT [...] documented as of this encounter Discharge Summaries Fernanda Siddiqi MD - 02/24/2015 11:32 AM PDT [facility] FACULTY HOSPITALIST DISCHARGE SUMMARY PATIENT NAME: Anne Marie Pichardo DATE OF : 1955 DATE OF ADMISSION: 02/22/2015 DATE OF DISCHARGE: 02/24/2015 ADMITTING PHYSICIAN: Sussy Pitt MD DISCHARGING PHYSICIAN: Fernanda Siddiqi MD CONSULTANTS THIS ADMISSION: wound care. Gen. surgery, Dr. Thomason PRIMARY CARE PHYSICIAN: Yolanda Lee DISCHARGE DISPOSITION: Home with scheduled outpatient IV infusions here CODE STATUS: Full Code PROCEDURES THIS ADMISSION: Echocardiogram. Bedside opening of right hand bullae. ISSUES REQUIRING FOLLOW UP AFTER DISCHARGE: Completion of IV antibiotics FOLLOW UP: Yolanda Lee 1-2 weeks Daily return to [place] outpatient infusion for IV Rocephin 2 g IV every 24 hours 2 weeks HOSPITAL COURSE: 59-year-old female with a history of IV drug abuse including heroin and methamphetamines ad mitted with ulcerations and abscesses of the hands in areas where she "skin pops". Blood cu ltures and wound cultures positive for group A strep, initiated on IV antibiotics. Consulta tions from wound care and surgery regarding the lesions. Echocardiogram shows no valvular v egetations. She is eager to get out of the hospital and quite persistent that she has decided to quit I V drug use. She'll need 2 weeks of IV antibiotics, home health agencies were not agreeable to go out to her home so she was arranged for outpatient IV infusions to return here each da y for the next 2 weeks. Please see diagnoses and associated details below. The importance of returning for all of her antibiotic doses as well as keeping her PICC line dressing covered and clean at all time s at home was stressed to her. DISCHARGE DIAGNOSES / Pertinent hospital issues are detailed below: Cellulitis and abscess of hand, except fingers and thumb Assessment & Plan Ulcerations and superficial abscesses of the hands bilaterally in places where she "skin po ps." Blood culture and wound culture growing group A strep. The wound culture Gram stain also demonstrated staph organisms but this did not grow out on culture and she has no prior history of MRSA. She was covered empirically here with IV Rocephin and vancomycin, she will now go home on t he IV Rocephin outpatient infusions 2 weeks. PICC line placed, obvious concern with PICC care in a drug abuser but she contends that she will keep the site clean and not use it for drugs. Heroin dependence Assessment & Plan Active heroin abuser of about 1 g per day. Says that she intends to quit. Placed on COWS monitoring for potential of withdrawal symptoms - some troubles with pain to day but no agitation, encephalopathy, etc. Admit drug screen positive for methamphetamines, marijuana, opiates Bacteremia due to Streptococcus / Sepsis Assessment & Plan Continue to antibiotics as above. Echocardiogram negative for valvular vegetations. Clinically she is doing well and eager to go home. Bipolar disorder Assessment & Plan Stable at present. Continue her usual Seroquel 100 mg daily Hyponatremia Assessment & Plan Mild, Na 130 on admit. Given IV normal saline and moderate fluid restriction. Sodium normalized at 135-138 GILDARDO (acute kidney injury) Assessment & Plan Admit creatinine 1.13 has improved to 0.69 with IV fluids (baseline around 0.6). Hypertension Assessment & Plan BP low on admit, now improved post IV fluids. Continue Coreg and lisinopril. Ischemic cardiomyopathy Assessment & Plan Improved, current EF 55%. History of CO, stent and EF of 40% 2012 at [facility] Continue Plavix, Lipitor, PHOEBE inhibitor, beta mateus, ASA Smoking history Assessment & Plan History of 0.5-1 pack per day 30 years. Nicotine patch available. Dyslipidemia Assessment & Plan On lipitor DISCHARGE MEDICATIONS: Discharge Medications New Medications Details cefTRIAXone (ROCEPHIN) 2 g in sodium chloride 0.9% 50 mL IVPB Inject 2 g into the vein every 24 hours for 14 days. Unchanged Medications Details aspirin 81 mg EC tablet Take 81 mg by mouth Daily. atorvaSTATin 40 mg tablet Take 40 mg by mouth nightly. aka: LIPITOR carvedilol 6.25 mg tablet Take 6.25 mg by mouth 2 times daily (with breakfast & dinner). aka: COREG FLUoxetine 20 mg capsule Take 20 mg by mouth Daily. aka: PROzac HYDROcodone-acetaminophen 5-325 mg per tablet Take 1-2 tablets by mouth every 4 hours as needed for Pain. aka: NORCO hydrOXYzine hydrochloride 10 mg tablet Take 25 mg by mouth nightly as needed for Itching or Anxiety. aka: ATARAX lisinopril 20 mg tablet Take 1 tablet by mouth Daily. aka: PRINIVIL, ZESTRIL QUEtiapine 100 mg tablet Take 100 mg by mouth nightly. aka: SEROquel DISCHARGE LABS: Lab Results Component Value Date WBC 10.8 02/24/2015 HGB 11.2* 02/24/2015 HCT 33.9* 02/24/2015 MCV 82.3 02/24/2015 PLT 334 02/24/2015 Lab Results Component Value Date CREA 0.63 02/24/2015 BUN 8 02/24/2015 NA 135 02/24/2015 K 3.6 02/24/2015 CL 108 02/24/2015 CO2 21 02/24/2015 CONDITION AT DISCHARGE: stable TIME SPENT ON DISCHARGE: 40 minutes Electronically signed by: Fernanda Siddiqi MD 02/24/2015 11:32 Portions of this chart may have been created with Casenet voice recognition software. Occasi onal wrong-word or sound-alike substitutions may have occurred due to the inherent meyers itations of voice recognition software. Please read the chart carefully and recognize, using context, where these substitutions have occurred documented in this encount er Discharge Instructions Instructions Keaton Boyd RN - 02/23/2015Wounds to hands and wrists: cleanse with nor mal saline or warm water and soap, pat dry, then apply silvasorb gel and cover with telfa no n-adherent dressing, secure with phoebe wrap. change daily. 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 Medication schedule, follow up appointments, and antibiotic outpatient schedule fo r 14 days reviewed with patient with prompt to call outpatient 1-2 hours before each day wit h 16:30 schedule. Verbalizes to above and denies questions to. AStKeaton emmanuel RN - 02/24/2015 2:06 PM PDTOr ders received to dc to home. Patient agreeable to discharging to home and coming back for da daljit antibiotic infusions. To dc with picc line. Vitals stable. Oksana Schaefer - 02/24/2015 11:45 AM [facility] to accept pt back onto service due to noncompliance. IV Therapy to arranged pt as outp atient series. Pt reported she has transportation to appointments. aware outpatient order s need to be entered. RIZWANA will continue to follow and assist as needed. Electronically signed by: FRANK Lei 02/24/2015 11:45 Oksana Schaefer - 5 9:55 AM PDTPt [place] in [place], has [facility], was admitted for sepsis. notified RIZWANA pt will need 2 weeks IV ABX at discharge. Per chart review pt has done home infusion with [facility] before. Referral made to IV Therapy who will have [facility] assess pt for home infusion vs outpatient series. RIZWANA will continue to follow and assist as needed. Electronically signed by : FRANK Lei 02/24/2015 9:55 Halle Francis RN - 02/24/2015 9:15 AM PDT Right hand bullae debrided by surgeon yesterday, all sites clean, partial thickness ulcers. Cleansed, applied silvasorb gel then telfa pad with PHOEBE for compression and to secure dres sings. Also washed entire hand as nail beds and fingers dirty. Daughter in room, taught he r how to change dressings. Faxed RX for supplies to [employer]. 02/24/15 0915 Visit Information Visit Type Wound re-assessment Wound 02/22/15 Left: palm abscess;extravasation Observed Date: 02/22/15 Side: Left: Location: palm Wound Type: abscess;extravasation A dditional Comments: (c) Wound WDL Ex Wound Base pink;moist Periwound Area intact Drainage Characteristics/Odor serosanguineous Drainage Amount scant Wound Cleaning sterile normal saline Wound Interventions antimicrobial gel Dressing low-adherence/dos-zfcjdbusz-xddniip Wound 02/22/15 0850 Right: dorsal hand abscess Observed Date/Observed Time: 02/22/15 0850 Side: Right: Orientation: dorsal Location: h and Wound Type: abscess Wound WDL Ex Wound Base moist;pink Periwound Area swelling;redness Drainage Characteristics/Odor serosanguineous Drainage Amount scant Wound Interventions antimicrobial gel Dressing dressing changed:;low-adherence/fpm-kgwxvooet-nttnfue Visit Summary Discipline Providing Treatment WOCN Next Wound/Ostomy Visit Date (d/c today) Skylar Becker RN - 02/24/2015 4:12 AM PDT Nursing Handoff Note Room # 922/922-01 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 BC + for staph Mentation: A/O, anxious Mobility/HRF: Indep to bathroom Therapy Involved? (PT/OT/ST/RT) DC Plan: (Able to manage at home?) Unknown VTE Prophylaxis: (SCD or Rx?) Rx, ambulates Andino: Insert Date: D/C Date: Last bowel movement: Stool Occurrence: 1 (02/23/15 0600) Pain Management: [place] 10/325 tab 1 po Q 4 hrs, prn Atarax and prn Ativan for anxiety Filed Vitals: 02/23/15 1100 02/23/15 1439 02/23/15 1952 02/24/15 0131 BP: 144/74 140/73 146/74 140/80 Pulse: 62 64 68 76 Temp: 36 C (96.8 F) 36.7 C (98.1 F) 36.6 C (97.9 F) 36.7 C (98.1 F) TempSrc: Temporal Temporal Temporal Temporal Resp: 16 16 16 20 Height: Weight: 63.6 kg (140 lb 3.4 oz) SpO2: 98% 99% 97% 92% No results found for this basename: POCGLU Items to address 1:1 at bedside report: 1. Anticipated needs next 1-2 hours: ? Time sensitive labs next draw? ? PTT for heparin? ? Critical lab results to be called on? ? Gtt rate and adjustment times ? Pain management 2. Goals to progress towards discharge 3. MD Communication (pending/call needed?) 4. Other comments/concerns Сергей Ocasio RN - 02/23/2015 3:32 PM PDTFormatting of this note might be differen t from the original. 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 (PT/OT/ST/RT) DC Plan: (Able to manage at home?) ?? VTE Prophylaxis: (SCD or Rx?) Rx, abmulates Andino: Insert Date: D/C Date: Last bowel movement: Stool Occurrence: 1 (02/23/15 0600) Pain Management: Prn norco Filed Vitals: 02/23/15 0715 02/23/15 1006 02/23/15 1100 02/23/15 1439 BP: 143/71 145/74 144/74 140/73 Pulse: 70 62 62 64 Temp: 36.3 C (97.4 F) 36.6 C (97.8 F) 36 C (96.8 F) 36.7 C (98.1 F) TempSrc: Temporal Temporal Temporal Temporal Resp: 16 16 16 Height: Weight: SpO2: 97% 98% 98% 99% No results found for this basename: POCGLU Items to address 1:1 at bedside report: 1. Anticipated needs next 1-2 hours: ? Time sensitive labs next draw? ? PTT for heparin? ? Critical lab results to be called on? ? Gtt rate and adjustment times ? Pain management 2. Goals to progress towards discharge 3. MD Communication (pending/call needed?) 4. Other comments/concerns 5. Tuyet Calzada RN - 02/23/2015 2:56 PM PDT Pt reports hx of heroin use, does not inject into hands. States wounds started approx 4 day s ago. Rt dorsal hand with 2 intact bulla with creamy fluid filled drainage. Left palm surfa ce of hand and wrist with multiple scattered open dried ulcerations. Left hand cleansed and applied silvasorb gel for moist wound healing as well as decrease potential bacterial load. Discussed care with dr. Siddiqi, recommend surgery consult to assess rt dorsal hand. Dc planning: pt states possible home tomorrow with home health. Will continue to follow for POC. 02/23/15 1300 Visit Information Visit Type Initial wound assessment Wound 02/22/15 Left: palm abscess;extravasation Observed Date: 02/22/15 Side: Left: Location: palm Wound Type: abscess;extravasation A dditional Comments: (c) Wound WDL Ex Dressing Appearance dry;intact Wound Base dry;reddened Periwound Area dry Wound Edges open Wound Length: 0.01 m (0.39") Wound Width: 0.01 m (0.39") Wound Depth: 0.001 m (0.04") Tunneling/Tract (length (cm)/Location) 0 Undermining (Depth (cm)/Location) 0 Drainage Amount none Wound Cleaning sterile normal saline Wound Interventions antimicrobial gel Dressing dressing initiated;gauze Wound Bed% Granulation 0-25% Wound Bed % Slough 0-25% Wound Bed % Eschar 0-25% Wound Bed % Epithelialization 0-25% Wound 02/22/15 0850 Right: dorsal hand abscess Observed Date/Observed Time: 02/22/15 0850 Side: Right: Orientation: dorsal Location: h and Wound Type: abscess Wound WDL Ex Dressing Appearance intact;dry Wound Base blistered Periwound Area redness;swelling Periwound Comment tender to touch per pt report Wound Length: 0.02 m (0.79") Wound Width: 0.022 m (0.87") Wound Depth: 0 m (0') Tunneling/Tract (length (cm)/Location) 0 Undermining (Depth (cm)/Location) 0 Drainage Amount none Wound Cleaning sterile normal saline Dressing open to air (for surgical assessment) Visit Summary Discipline Providing Treatment WOCN Next Wound/Ostomy Visit Date 02/24/15 (f/u POC bilat hand abscesses) orpatricia, MD Fernanda - 1:59 PM PDT [facility]G FACULTY HOSPITALIST PROGRESS NOTE PATIENT NAME: Anne Marie Pichardo AGE: 59 y.o. DATE OF SERVICE: 02/23/2015 HOSPITAL COURSE: 59-year-old female with a history of IV drug abuse including heroin and methamphetamines ad mitted with ulcerations and abscesses of the hands in areas where she "skin pops". Blood cu ltures and wound cultures positive for group A strep, initiated on IV antibiotics. Consulta tions from wound care and surgery regarding the lesions. Echocardiogram ordered. ASSESSMENT and PLAN: Cellulitis and abscess of hand, except fingers and thumb Assessment & Plan Ulcerations and superficial abscesses of the hands bilaterally in places where she "skin po ps." Blood culture growing group A strep, wound cultures growing group A strep and staph with se nsitivities pending. Continue IV Rocephin and vancomycin for now. PICC line placed. Wound care consulting, requested surgery consultation as well for abscess areas on her righ t hand. Heroin dependence Assessment & Plan Active heroin abuser of about 1 g per day. Says that she intends to quit. Placed on COWS monitoring for potential of withdrawal symptoms - currently no complaints of pain, agitation, etc. Admit drug screen positive for methamphetamines, marijuana, opiates Bacteremia due to Streptococcus / Sepsis Assessment & Plan Continue to antibiotics as above. Check echocardiogram to rule out endocarditis. Clinically she is doing well and eager to go home. Bipolar disorder Assessment & Plan Stable at present. Continue her usual Seroquel 100 mg daily Hyponatremia Assessment & Plan Mild, Na 130 on admit. Placed on fluid restriction. Continue to follow. GILDARDO (acute kidney injury) Assessment & Plan Admit creatinine 1.13 has improved to 0.69 with IV fluids (baseline around 0.6). Hypertension Assessment & Plan BP low on admit, now improved post IV fluids. Continue Coreg and lisinopril, BP hold parameters in place. Ischemic cardiomyopathy Assessment & Plan Improved, current EF 55%. History of CO, stent and EF of 40% 2011 at [facility] Continue Plavix, Lipitor, PHOEBE inhibitor, beta mateus, ASA Smoking history Assessment & Plan History of 0.5-1 pack per day 30 years. Nicotine patch available. Dyslipidemia Assessment & Plan On lipitor SUBJECTIVE: Remarkably pleasant. Eager to get out of the hospital. Says that she feels relatively wel l. REVIEW OF SYSTEMS: Fevers. WBC 7800. CRP 8.5. Lactate normal. OBJECTIVE: PHYSICAL EXAM: Temp: [36 C (96.8 F)-37.2 C (98.9 F)] 36 C (96.8 F) Pulse: [62-76] 62 Resp: [16-18] 16 BP: (92-148)/(44-74) 144/74 mmHg Intake/Output Summary (Last 24 hours) at 02/23/15 1359 Last data filed at 02/23/15 1157 Gross per 24 hour Intake 3715 ml Output 1853 ml Net 1862 ml General: no distress, thin HEENT: neck supple, PERRLA Cardiovascular: Regular rate and rhythm without murmur rub or gallop Respiratory: Slight rales bilaterally. Respirations nonlabored. Scant rhonchi Gastrointestinal: Bowel sounds present. Nontender Musculoskeletal: No edema Neurologic: Alert and oriented Psychological: No agitation or anxiety Skin: Hands dressed bilaterally but by lifting up the gauze, areas of superficial ulceratio n are seen on the left hand and to fluid-filled superficial pockets on the dorsum of the rig ht hand 24 HOUR LABS: Lab Results Component Value Date WBC 7.8 02/23/2015 HGB 11.2* 02/23/2015 HCT 33.5* 02/23/2015 MCV 82.6 02/23/2015 PLT 287 02/23/2015 Lab Results Component Value Date CREA 0.66 02/23/2015 BUN 11 02/23/2015 NA 138 02/23/2015 K 4.0 02/23/2015 CL 113* 02/23/2015 CO2 22 02/23/2015 No results found for this basename: DONNIE I spent 40 minutes with the patient and on the patient's unit, with over 50% spent in couns eling and/or coordination of care. Electronically signed by: Fernanda Siddiqi MD 02/23/2015 13:59 Portions of this chart may have been created with Casenet voice recognition software. Occasi onal wrong-word or sound-alike substitutions may have occurred due to the inherent meyers itations of voice recognition software. 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 Shade stone on 02/22, wound care consult ordered Scab to L calf Mentation: Lethargic, oriented. Mobility/HRF: Independent Therapy Involved? (PT/OT/ST/RT) Wound care consult ordered DC Plan: (Able to manage at home?) If able to tx w/PO abx may be home in 1-2 days VTE Prophylaxis: (SCD or Rx?) Ambulates Andino: Insert Date: D/C Date: Last bowel movement: Pain Management: PRN norco PRN ativan Filed Vitals: 02/22/15 1754 02/22/15 2049 02/23/15 0100 02/23/15 0349 BP: 92/44 148/70 145/60 136/67 Pulse: 75 76 69 Temp: 37.1 C (98.7 F) 37.2 C (98.9 F) 36.4 C (97.6 F) TempSrc: Temporal Temporal Temporal Resp: 16 18 16 Height: Weight: SpO2: 98% 97% 97% No results found for this basename: POCGLU 1. Arlyn Reddy RN - 02/22/2015 11:[address] Pitt in room with pt, Unwrapped both hands, mu ltiple areas of pustules on both hands, varying sizes, pinpoint to lolita size. Some open and drainingg, most not. Large area between fingers. Dr. Pitt close to wounds and he re-dres sed them with kerlix wrap. P M Arlyn Reddy RN - 02/22/2015 11:22 PM PDTFormatting of this note might be differen t from the original. 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 Some draining, one area between finger s Mentation: A&O Mobility/HRF: Up in room Therapy Involved? (PT/OT/ST/RT) DC Plan: (Able to manage at home?) If able to tx with po antibiotics may be home in 1-2 days, if not group home IV antibiotics VTE Prophylaxis: (SCD or Rx?) amb in room Andino: Insert Date: D/C Date: Last bowel movement: states yesterday Pain Management: Hydrocodone 1 Filed Vitals: 02/22/15 1230 02/22/15 1700 02/22/15 1754 02/22/152048 BP: 111/48 94/46 92/44 148/70 Pulse: 66 63 75 Temp: 36.7 C (98 F) 36.8 C (98.2 F) 37.1 C (98.7 F) TempSrc: Temporal Temporal Temporal Resp: 16 18 16 Height: Weight: SpO2: 92% 93% 98% No results found for this basename: POCGLU Items to address 1:1 at bedside report: 1. Anticipated needs next 1-2 hours: ? Time sensitive labs next draw? ? PTT for heparin? ? Critical lab results to be called on? ? Gtt rate and adjustment times ? Pain management 2. Goals to progress towards discharge 3. MD Communication (pending/call needed?) 4. Other comments/concerns 5. Arlyn Reddy RN - 02/22/2015 6:14 PM PDTPt's BP 92-94 systolic, over 44-46. Called Dr. Pitt who said to hold the coreg and that he would write parameters for giving or holding. Also asked that pt receive NS 500cc/hr x2 for a total of 1 L. Increased NS per pump and held coreg. 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 (PT/OT/ST/RT) Wound consult ordered DC Plan: (Able to manage at home?) ? VTE Prophylaxis: (SCD or Rx?) Rx - Arixtra Andino: Insert Date: D/C Date: Last bowel movement: Pain Management: [place] prn Filed Vitals: 02/22/15 0936 02/22/15 1006 02/22/15 1035 02/22/15 1230 BP: 105/52 100/44 106/46 111/48 Pulse: 82 83 77 66 Temp: 36.7 C (98 F) TempSrc: Temporal Resp: 17 18 17 16 Height: Weight: SpO2: 92% No results found for this basename: POCGLU Items to address 1:1 at bedside report: 1. Anticipated needs next 1-2 hours: ? Time sensitive labs next draw? ? PTT for heparin? ? Critical lab results to be called on? ? Gtt rate and adjustment times ? Pain management 2. Goals to progress towards discharge 3. MD Communication (pending/call needed?) 4. Other comments/concerns 5. Romeo Martinez, PharmD - 02/22/2015 10:19 AM PDTFormatting of this note might be different from the origi nal. Pharmacy Progress Note VANCOMYCIN PER PHARMACY PROTOCOL: Day #1 Anne Marie Pichardo is a 59 y.o. female receiving vancomycin for the treatment of sepsis, h and cellulitis/abscess, r/o osteomyelitis, and UTI. Assessment/Plan: 1. Vancomycin 1500 mg IV x 1 dose, then 1 GM IV q 12 hours. 2. Target Trough: 15-20 mcg/ml 3. Vancomycin trough ordered 02/24 prior to 11:00 dose (draw 30 minutes prior to hanging dos e) 4. Pharmacy to monitor daily and adjust dosage per protocol Subjective/Objective: Other antibiotics: Zosyn. Blood pressure 105/52, pulse 82, temperature 37.9 C (100.2 F), resp. rate 17, height 1. 727 m (5' 7.99"), weight 68.04 kg (150 lb), SpO2 91 %, not currently . Min/Max Temp past 24 hours:Temp Av.2 C (100.8 F) Min: 37.9 C (100.2 F) Max: 38.5 C (101.3 F) Recent Labs Lab 02/22/15 0752 WBC 11.1* CREA 1.13* BUN 20 Estimated Creatinine Clearance: 53 mL/min (based on Cr of 1.13). Micro/Cultures: wound cx staph & strep Per P&T-approved Vancomycin Protocol Electronically signed by: Romeo Palomino PHARMJose 02/22/2015 10:19 documented in this encounter Plan of Treatment [...] | | | | | [place] [address] | | | | | | [phone] | | | | | | | | +--------+---------+ + + + | 10/28/ | Office | Cardiology | Carol, | | | 2019 | Visit | | SALVATORE Moreno [address] | | | | | | [place], | | | | | | [place] [address] | | | | | | [phone] | | | | | | | | +--------+---------+ + + + documented as of this encounter Procedures + +--------+ + + + | Procedure Name | Priori | Date/Time | Associated Diagnosis | Comments | | | ty | | | | + +--------+ + + + | CBC NO DIFFERENTIAL | Routin | 02/24/2015 | | Results for this | | | e | 5:26 AM | | procedure are in the | | | | PDT | | results section. | + +--------+ + + + | VANCOMYCIN, TROUGH | Routin | 02/24/2015 | | Results for this | | | e | 5:10 AM | | procedure are in the | | | | PDT | | results section. | + +--------+ + + + | COMPREHENSIVE | Routin | 02/24/2015 | | Results for this | | METABOLIC PANEL | e | 5:10 AM | | procedure are in the | | | | PDT | | results section. | + +--------+ + + + | ECHO COMPLETE | Routin | 02/23/2015 | | Results for this | | | e | 11:20 AM | | procedure are in the | | | | PDT | | results section. | + +--------+ + + + | CBC WITH | Routin | 02/23/2015 | | Results for this | | DIFFERENTIAL | e | 4:44 AM | | procedure are in the | | | | PDT | | results section. | + +--------+ + + + | COMPREHENSIVE | Routin | 02/23/2015 | | Results for this | | METABOLIC PANEL | e | 4:44 AM | | procedure are in the | | | | PDT | | results section. | + +--------+ + + + | LVEF VALUE | Routin | 02/23/2015 | | Results for this | | | e | | | procedure are in the | | | | | | results section. | + +--------+ + + + | EXTRA HOLD TUBE(S) | Routin | 02/22/2015 | | Results for this | | | e | 2:42 PM | | procedure are in the | | | | PDT | | results section. | + +--------+ + + + | SODIUM, URINE, | Routin | 02/22/2015 | | Results for this | | RANDOM | e | 2:22 PM | | procedure are in the | | | | PDT | | results section. | + +--------+ + + + | OSMOLALITY, URINE | Routin | 02/22/2015 | | Results for this | | | e | 2:22 PM | | procedure are in the | | | | PDT | | results section. | + +--------+ + + + | XR HAND LEFT 3 + VW | STAT | 02/22/2015 | | Results for this | | | | 8:42 AM | | procedure are in the | | | | PDT | | results section. | + +--------+ + + + | DRUGS OF ABUSE, | STAT | 02/22/2015 | | Results for this | | SCREEN, URINE | | 8:40 AM | | procedure are in the | | | | PDT | | results section. | + +--------+ + + + | URINALYSIS WITH | STAT | 02/22/2015 | | Results for this | | MICROSCOPIC WITH | | 8:39 AM | | procedure are in the | | CULTURE IF INDICATED | | PDT | | results section. | + +--------+ + + + | CULTURE, URINE | Routin | 02/22/2015 | | Results for this | | | e | 8:39 AM | | procedure are in the | | | | PDT | | results section. | + +--------+ + + + | XR CHEST AP PORTABLE | STAT | 02/22/2015 | | Results for this | | | | 8:15 AM | | procedure are in the | | | | PDT | | results section. | + +--------+ + + + | CULTURE, WOUND, | STAT | 02/22/2015 | | Results for this | | SMEAR | | 8:00 AM | | procedure are in the | | | | PDT | | results section. | + +--------+ + + + | CULTURE, BLOOD | STAT | 02/22/2015 | | Results for this | | | | 7:55 AM | | procedure are in the | | | | PDT | | results section. | + +--------+ + + + | EXTRA HOLD TUBE(S) | Routin | 02/22/2015 | | Results for this | | | e | 7:52 AM | | procedure are in the | | | | PDT | | results section. | + +--------+ + + + | SEDIMENTATION RATE | STAT | 02/22/2015 | | Results for this | | | | 7:52 AM | | procedure are in the | | | | PDT | | results section. | + +--------+ + + + | CBC WITH | STAT | 02/22/2015 | | Results for this | | DIFFERENTIAL | | 7:52 AM | | procedure are in the | | | | PDT | | results section. | + +--------+ + + + | C-REACTIVE PROTEIN | STAT | 02/22/2015 | | Results for this | | | | 7:52 AM | | procedure are in the | | | | PDT | | results section. | + +--------+ + + + | OSMOLALITY, SERUM | Add-On | 02/22/2015 | | Results for this | | | | 7:52 AM | | procedure are in the | | | | PDT | | results section. | + +--------+ + + + | LACTIC ACID | STAT | 02/22/2015 | | Results for this | | | | 7:52 AM | | procedure are in the | | | | PDT | | results section. | + +--------+ + + + | BASIC METABOLIC | STAT | 02/22/2015 | | Results for this | | PANEL | | 7:52 AM | | procedure are in the | | | | PDT | | results section. | + +--------+ + + + | CULTURE, BLOOD | STAT | 02/22/2015 | | Results for this | | | | 7:35 AM | | procedure are in the | | | | PDT | | results section. | + +--------+ + + + | ED INFORMATION | Routin | 02/22/2015 | | Results for this | | EXCHANGE | e | 7:09 AM | | procedure are in the | | | | PDT | | results section. | + +--------+ + + + documented in this encounter Results CBC no Differential (02/24/2015 5:26 AM PDT) + + + + + + | Component | Value | Ref Range | Performed | Pathologist | | | | | At | Signature | + + + + + + | WBC | 10.8 | 3.8 - 11.0 K/uL | [facility] | | [facility] | | | | | | LAB[facility] | | + + + + + + | RBC | 4.12 | 3.70 - 5.10 | [facility] | | | | M/uL | [facility] | | [facility] | [facility] | [facility] | | | | | | LABORATORY | | + + + + + + | Hemoglobin | 11.2 (L) | 11.3 - 15.5 | [facility] | | | | g/dL | [facility] | | [facility] | | | | | | [facility] | | | | | | LABORATORY | | + + + + + + | Hematocrit | 33.9 (L) | 34.0 - 46.0 % | [facility] | | | | | | LAB[facility]ATORY | | + + + + + + | MCV | 82.3 | 80.0 - 100.0 fL | [facility] | | | | [facility] | | | | | [facility] | | | | | | LABORATORY | | + + + + + + | MCH | 27.3 | 27.0 - 34.0 pg | [facility] | | | | [facility] | | | | | [facility] | | | | | | LABORATORY | | + + + + + + | MCHC | 33.2 | 32.0 - 35.5 | [facility] | | | | | g/dL | [facility] | | [facility] | | | | | | [facility] | | | | | | LAB[facility]ATORY | | + + + + + + | RDW-CV | 15.7 (H) | 11.0 - 15.5 % | [facility] | [facility] | | [facility] | | | | | [facility] | | | | | | LABORATORY | | + + + + + + | Platelet | 334 | 150 - 400 K/uL | [facility] [...] + + | [facility] | [address] | [place] [address] | | | [facility] | | | | | LAB[facility]ORY | | | | + + + + + Vancomycin, Trough (02/24/2015 5:10 AM PDT) + +-------+ + + + | Component | Value | Ref Range | Performed | Pathologist | | | | | At | Signature | + +-------+ + + + | Vancomycin | 13.8 | 10 - 20 ug/mL | [facility] | | | Trough | | | [facility] | | | [...] + | [facility] | [address] | [place] [address] | | | [facility] | | | | | LABORATORY | | | | + + + + + Comprehensive Metabolic Panel (02/24/2015 5:10 AM PDT) + + + + + + | Component | Value | Ref Range | Performed | Pathologist | | | | | At | Signature | + + + + + + | Na | 135 | 135 - 145 | [facility] | [...] + + + + | CO2 | 21 | 21 - 28 mmol/L | [facility] | | | | | [facility] | | | | | [facility] | | | | | | LABORATORY | | + + + + + + | Glucose | 145 (H)Comment: Irish | 65 - 99 mg/dL | [facility] | | | | Diabetes [employer] | [...] + + + + | BUN | 8 | 8 - 25 mg/dL | [facility] | | [facility] | | | | [facility] | | | | | [facility] | | | | | | LABORATORY | | + + + + + + | Creatinine | 0.63Comment: IDMS | 0.50 - 1.00 | [facility] [...] + + + + | Total | 6.8 | 6.1 - 7.8 g/dL | [facility] | | | Protein | | | [facility] | | | | | [facility] | | | | | | [facility] | | | | | | [facility] | | | | | | LABORATORY | | + + + + + + | Albumin | 3.3 | 3.3 - 4.8 g/dL | [facility] | | | | [facility] | | | | | [facility] | | | | | [facility] | | | | | | LABORATORY | | + + + + + + | Bilirubin | 0.3 | 0.2 - 1.1 mg/dL | [facility] | | | Total | | | [facility] | | [facility] | | | | | | [facility] | | | | | | [facility] | | | | | | LABORATORY | | + + + + + + | Alkaline | 303 (H) | 35 - 115 U/L | [facility] | | | Phosphatase | | | [facility] | | | | | [facility] | | | | | | [facility] | | | | | | [facility] | | | | | | LABORATORY | | + + + + + + | AST | 31 | 10 - 45 U/L | [facility] | | | [facility] | | | | | [facility] | | | | | [facility] | | | | | | LABORATORY | | + + + + + + | ALT | 26 | 10 - 65 U/L | [facility] | | | | [facility] | | | | | | [facility] | | | | | | [facility] | | | | | | LABORATORY | | + + + + + + | Anion Gap | 6 | 5 - 16 mmol/L | [facility] [...] | + + + + + | [facility] | [address] | [place] [address] | | | [facility] | | | | | LABORATORY | | | | + + + + + ECHO Complete (02/23/2015 11:20 AM PDT) + + | Specimen | + + | | + + + + --+ | Narrative | Performed A t | + + --+ | | | | | | | Adult Echo | | | Report Name: | | | ANNE MARIE PICHARDO Study Date: 02/23/2015MRN: [id number] | | | Patient Location: [facility]DOB: 1955 | | | Age: 59 yrs Gender: FemaleHeight: | | | 68 in Weight: 139 lb | | | BSA: 1.8 m2 HR: 65 | | | Rhythm: SR.History: CAD, ACUTE CO, ICM, | | | HTN, ANXIETY, DEPRESSION.Reason For Study: strep and staph bacteremia, | | | r/o vegetation, AUC 52 INTERPRETATION SUMMARY:A two-dimensional | | | transthoracic echocardiogram with M-mode, pulsed waveand color Doppler | | | was performed. The left ventricle is grossly normal size. There is | | | normal leftventricular wall thickness. Basal infero-posterior severe | | | hypokinesisnoted as previously seen on 01/13/2014. The visually | | | estimated LV ejectionfraction is 55%.The right ventricle is normal in | | | size and function.The left atrium is mildly dilated.The mitral valve | | | leaflets appear thickened, but open well. No obviousvalvular | | | vegetation detected. There is mild mitral regurgitation.Aortic valve | | | leaflets appear mildly thickened, but open normally. Noobvious | | | valvular vegetation detected. No hemodynamically significantvalvular | | | aortic stenosis. No aortic insufficiency is present.The pulmonic valve | | | appears normal in structure and function.The tricuspid valve is | | | grossly normal in appearance. No obvious valvularvegetation detected. | | | There is mild tricuspid regurgitation.Doppler findings suggest | | | moderate pulmonary hypertension. Estimated PApressure is 47 mmHg. Left | | | Ventricle:The left ventricle is grossly normal size. There is no | | | thrombus. There isnormal left ventricular wall thickness. The visually | | | estimated LV ejectionfraction is 55%. Left ventricular systolic | | | function is normal. Basalinfero-posterior severe hypokinesis noted as | | | previously seen on 01/13/2014. Right Ventricle:The right ventricle is | | | normal in size and function. There is normal rightventricular wall | | | thickness. Atria:The left atrium is mildly dilated. Right atrial size | | | is normal. PICC linenoted in right atrium. The IVC dimension is 2.5 | | | cm. The lack ofrespiratory variation in the inferior vena cava | | | diameter is noted. Noobvious septal defect is seen with color Doppler. | | | Mitral Valve:The mitral valve is grossly normal. The mitral valve | | | leaflets appearthickened, but open well. There is no evidence of | | | mitral valve prolapse.No obvious valvular vegetation detected. No | | | significant mitral valvestenosis. There is mild mitral regurgitation. | | | Tricuspid Valve:The tricuspid valve is grossly normal in appearance. | | | The tricuspid valveleaflets are thin and pliable. No obvious valvular | | | vegetation detected.There is mild tricuspid regurgitation. The RV/RA | | | systolic gradient wasmeasured at 32 mmHg. Estimated PA pressure is 47 | | | mmHg. Doppler findingssuggest moderate pulmonary hypertension. Aortic | | | Valve:The aortic valve is trileaflet. Aortic valve leaflets appear | | | mildlythickened, but open normally. No obvious valvular vegetation | | | detected. Nohemodynamically significant valvular aortic stenosis. The | | | aortic valvearea is 2.8 cm2. No aortic insufficiency is present. | | | Pulmonic Valve:The pulmonic valve appears normal in structure and | | | function. There is nopulmonic valvular insufficiency. Great | | | Vessels:The aortic root is normal size. Visualized portions of the | | | aorta appeargrossly normal. The aortic arch appears grossly normal. | | | The pulmonaryartery is grossly normal in appearance. | | | Pericardium/Pleural:There is no pericardial effusion. No pleural | | | effusions are seen. MMode/2D Measurements & CalculationsRVDd: 3.9 cm | | | LVIDd: 5.0 cmIVSd: 1.1 cm | | | LVIDs: 3.8 cmIVSs: 1.4 cm | | | LVPWd: 0.58 cm | | | LVPWs: 0.64 cm FS: 23.3 % | | | Ao root diam: 2.8 cm | | | ACS: 1.9 cm | | | LA dimension: 4.8 cmasc Aorta Diam: 3.2 | | | cm LVOT diam: 2.2 cmEDV(MOD-sp4): 123.0 ml | | | EDV(MOD-sp2): 84.0 mlESV(MOD-sp4): 48.0 | | | mlEF(MOD-sp4): 61.0 % Time MeasurementsAortic HR: 65.0 BPM Doppler | | | Measurements & CalculationsMV E max padmini: 122.4 cm/sec | | | Ao V2 max: 153.4 cm/secMV A max padmini: 147.1 cm/sec | | | Ao max P.4 mmHgMV E/A: 0.83 | | | Ao mean P.0 mmHg | | | Ao V2 VTI: 38.3 cm | | | ENEDELIA(I,D): 2.8 cm2 | | | ENEDELIA(V,D): 2.7 cm2LV V1 max P.8 mmHg | | | CO(LVOT): 7.0 l/minLV V1 mean P.8 mmHg | | | CI(LVOT): 4.0 l/min/m2LV V1 max: 110.1 cm/sec | | | SV(LVOT): 106.9 mlLV V1 VTI: 28.6 cmTR max padmini: 280.3 | | | cm/sec RAP systole: 15.0 mmHgTR max P.4 | | | mmHgRVSP(TR): 46.4 mmHg Interpreting Physician: Edgar Conklin, | | | MDelectronically signed on 02/23/2015 12:43 PMOrdering Physician: | | | Bettye SIDDIQIocardiographer: Farzad [id number]: | | |RVDd: 3.9 cm LVIDd: 5.0 cm | | |IVSd: 1.1 cm LVIDs: 3.8 cm | | |IVSs: 1.4 cm LVPWd: 0.58 cm | | | LVPWs: 0.64 cm | | | | | |FS: 23.3 % Ao root diam: 2.8 cm | | | ACS: 1.9 cm | | | LA dimension: 4.8 cm | | |asc Aorta Diam: 3.2 cm LVOT diam: 2.2 cm | | |EDV(MOD-sp4): 123.0 ml EDV(MOD-sp2): 84.0 ml | | |ESV(MOD-sp4): 48.0 ml | | |EF(MOD-sp4): 61.0 % | | | | | |Time Measurements | | |Aortic HR: 65.0 BPM | | | | | |Doppler Measurements & Calculations | | |MV E max padmini: 122.4 cm/sec Ao V2 max: 153.4 cm/sec | | |MV A max padmini: 147.1 cm/sec Ao max P.4 mmHg | | |MV E/A: 0.83 Ao mean P.0 mmHg | | | Ao V2 VTI: 38.3 cm | | | ENEDELIA(I,D): 2.8 cm2 | | | | | | ENEDELIA(V,D): 2.7 cm2 | | |LV V1 max P.8 mmHg CO(LVOT): 7.0 l/min | | |LV V1 mean P.8 mmHg CI(LVOT): 4.0 l/min/m2 | | |LV V1 max: 110.1 cm/sec SV(LVOT): 106.9 ml | | |LV V1 VTI: 28.6 cm | | |TR max padmini: 280.3 cm/sec RAP systole: 15.0 mmHg | | |TR max P.4 mmHg | | |RVSP(TR): 46.4 mmHg | | | | | |Interpreting Physician: Edgar Conklin MD | | |electronically signed on 02/23/2015 12:43 PM | | |Ordering Physician: FERNANDA SIDDIQI | | |Educational Therapist: Farzad Parker | | |[id number]: | | | | | + + --+ + + | Procedure Note | + + | Tim, Rad Results In - 02/23/2015 12:44 PM PDT | | Adult Echo | | Report | | | | Name: ANNE MARIE PICHARDO Study Date: 02/23/2015 | | Patient Location: [place] [address] | | : 1955 Age: 59 yrs Gender: Female | | Height: 68 in Weight: 139 lb BSA: 1.8 m2 | | HR: 65 Rhythm: SR. | | History: CAD, ACUTE CO, ICM, HTN, ANXIETY, DEPRESSION. | | Reason For Study: strep and staph bacteremia, r/o vegetation, AUC 52 | | | | INTERPRETATION SUMMARY: | | A two-dimensional transthoracic echocardiogram with M-mode, pulsed wave | | and color Doppler was performed. | | | | The left ventricle is grossly normal size. There is normal left | | ventricular wall thickness. Basal infero-posterior severe hypokinesis | | noted as previously seen on 01/13/2014. The visually estimated LV ejection | | fraction is 55%. | | The right ventricle is normal in size and function. | | The left atrium is mildly dilated. | | The mitral valve leaflets appear thickened, but open well. No obvious | | valvular vegetation detected. There is mild mitral regurgitation. | | Aortic valve leaflets appear mildly thickened, but open normally. No | | obvious valvular vegetation detected. No hemodynamically significant | | valvular aortic stenosis. No aortic insufficiency is present. | | The pulmonic valve appears normal in structure and function. | | The tricuspid valve is grossly normal in appearance. No obvious valvular | | vegetation detected. There is mild tricuspid regurgitation. | | Doppler findings suggest moderate pulmonary hypertension. Estimated PA | | pressure is 47 mmHg. | | | | Left Ventricle: | | The left ventricle is grossly normal size. There is no thrombus. There is | | normal left ventricular wall thickness. The visually estimated LV ejection | | fraction is 55%. Left ventricular systolic function is normal. Basal | | infero-posterior severe hypokinesis noted as previously seen on 01/13/2014. | | | | Right Ventricle: | | The right ventricle is normal in size and function. There is normal right | | ventricular wall thickness. | | | | Atria: | | The left atrium is mildly dilated. Right atrial size is normal. PICC line | | noted in right atrium. The IVC dimension is 2.5 cm. The lack of | | respiratory variation in the inferior vena cava diameter is noted. No | | obvious septal defect is seen with color Doppler. | | | | Mitral Valve: | | The mitral valve is grossly normal. The mitral valve leaflets appear | | thickened, but open well. There is no evidence of mitral valve prolapse. | | No obvious valvular vegetation detected. No significant mitral valve | | stenosis. There is mild mitral regurgitation. | | | | Tricuspid Valve: | | The tricuspid valve is grossly normal in appearance. The tricuspid valve | | leaflets are thin and pliable. No obvious valvular vegetation detected. | | There is mild tricuspid regurgitation. The RV/RA systolic gradient was | | measured at 32 mmHg. Estimated PA pressure is 47 mmHg. Doppler findings | | suggest moderate pulmonary hypertension. | | | | Aortic Valve: | | The aortic valve is trileaflet. Aortic valve leaflets appear mildly | | thickened, but open normally. No obvious valvular vegetation detected. No | | hemodynamically significant valvular aortic stenosis. The aortic valve | | area is 2.8 cm2. No aortic insufficiency is present. | | | | Pulmonic Valve: | | The pulmonic valve appears normal in structure and function. There is no | | pulmonic valvular insufficiency. | | | | Great Vessels: | | The aortic root is normal size. Visualized portions of the aorta appear | | grossly normal. The aortic arch appears grossly normal. The pulmonary | | artery is grossly normal in appearance. | | | | Pericardium/Pleural: | | There is no pericardial effusion. No pleural effusions are seen. | | | | MMode/2D Measurements & Calculations | | RVDd: 3.9 cm LVIDd: 5.0 cm | | IVSd: 1.1 cm LVIDs: 3.8 cm | | IVSs: 1.4 cm LVPWd: 0.58 cm | | LVPWs: 0.64 cm | | | | FS: 23.3 % Ao root diam: 2.8 cm | | ACS: 1.9 cm | | LA dimension: 4.8 cm | | asc Aorta Diam: 3.2 cm LVOT diam: 2.2 cm | | EDV(MOD-sp4): 123.0 ml EDV(MOD-sp2): 84.0 ml | | ESV(MOD-sp4): 48.0 ml | | EF(MOD-sp4): 61.0 % | | | | Time Measurements | | Aortic HR: 65.0 BPM | | | | Doppler Measurements & Calculations | | MV E max padmini: 122.4 cm/sec Ao V2 max: 153.4 cm/sec | | MV A max padmini: 147.1 cm/sec Ao max P.4 mmHg | | MV E/A: 0.83 Ao mean P.0 mmHg | | Ao V2 VTI: 38.3 cm | | ENEDELIA(I,D): 2.8 cm2 | | | | ENEDELIA(V,D): 2.7 cm2 | | LV V1 max P.8 mmHg CO(LVOT): 7.0 l/min | | LV V1 mean P.8 mmHg CI(LVOT): 4.0 l/min/m2 | | LV V1 max: 110.1 cm/sec SV(LVOT): 106.9 ml | | LV V1 VTI: 28.6 cm | | TR max padmini: 280.3 cm/sec RAP systole: 15.0 mmHg | | TR max P.4 mmHg | | RVSP(TR): 46.4 mmHg | | | | Interpreting Physician: Edgar Conklin MD | | electronically signed on 02/23/2015 12:43 PM | | Ordering Physician: FERNANDA SIDDIQI | | Educational Therapist: Farzad Parker | | [id number]: | + + Comprehensive Metabolic Panel (02/23/2015 4:44 AM PDT) + + + + + + | Component | Value | Ref Range | Performed | Pathologist | | | | | At | Signature | + + + + + + | Na | 138 | 135 - 145 | [facility] | | | | | mmol/L | [facility] | | | | | [facility] | | | | | | [facility] | | | | | | [facility] | | | | | | LABORATORY | | + + + + + + | K | 4.0 | 3.5 - 5.0 | [facility] | | | | | mmol/L | [facility] | | [facility] | | | | | | [facility] | | | | | | [facility]ENTER | | | | | | LABORATORY | | + + + + + + | Cl | 113 (H) | 99 - 109 mmol/L | [...] + + | Glucose | 112 (H)Comment: Irish | 65 - 99 mg/dL | [facility] | | | | Diabetes Association | [...] + + | BUN | 11 | 8 - 25 mg/dL | [facility] | | | | | | [facility] | | [facility] | [facility] | | | | | | [facility] | | | | | | [facility]ENTER | | | | | | LABORATORY | | + + + + + + | Creatinine | 0.66Comment: IDMS | 0.50 - 1.00 | [facility] | | | | traceable creatinine | mg/dL | [facility] | | | | | [facility] | | | | | | MEDICAL | | | | | | CENTER | | | | | | LABORATORY | | + + + + + + | Calcium | 8.4 (L) | 8.5 - 10.2 | [facility] [...] + + + + | Albumin | 2.9 (L) | 3.3 - 4.8 g/dL | [facility] | | | | | | [facility] | [facility] | | | | | | [facility] | | | | | | CENTER | | | | | | LABORATORY | | + + + + + + | Bilirubin | 0.3 | 0.2 - 1.1 mg/dL | [facility] | | | Total | | | [facility] | [facility] | | [facility] | | | | | | [facility] | | | | | | CENTER | | | | | | LABORATORY | | + + + + + + | Alkaline | 152 (H) | 35 - 115 U/L | [facility] | | | Phosphatase | | | [facility] | | | | | | [facility] | | | | | | MEDICAL | | | | | | CENTER | | | | | | LABORATORY | | + + + + + + | AST | 19 | 10 - 45 U/L | [facility] | | | | | | [facility] | | | | | [facility] | | | | | | [facility] | | | | | | CENTER | | | | | | LABORATORY | | + + + + + + | ALT | 16 | 10 - 65 U/L | [facility] | | | | | | [facility] | [facility] | [facility] | | | | | | [facility] | | | | | | CENTER | | | | | | LABORATORY | | + + + + + + | Anion Gap | 3 (L) | 5 - 16 mmol/L | [facility] [...] + | [facility] | [address] | [place] [address] | | | [facility] | | | | | LABORATORY | | | | + + + + + CBC with Differential (02/23/2015 4:44 AM PDT) + + + + + + | Component | Value | Ref Range | Performed | Pathologist | | | | | At | Signature | + + + + + + | WBC | 7.8 | 3.8 - 11.0 K/uL | [facility] | | | | | | [facility] | | | | | | [facility] | | | | | | [facility]ENTER | | | | | | LABORATORY | | + + + + + + | RBC | 4.06 | 3.70 - 5.10 | [facility] | | | | | M/uL | [facility] | | | | | [facility] | | | | | | [facility] | | | | | | CENTER | | | | | | LABORATORY | | + + + + + + | Hemoglobin | 11.2 (L) | 11.3 - 15.5 | [facility] | | | | | g/dL | [facility] | | | | | [facility] | | | | | | [facility] | | | | | | CENTER | | | | | | LABORATORY | | + + + + + + | Hematocrit | 33.5 (L) | 34.0 - 46.0 % | [facility] | | | | | | [facility] | | | | | | [facility] | | | | | | [facility]ENTER | | | | | | LABORATORY | | + + + + + + | MCV | 82.6 | 80.0 - 100.0 fL | [facility] | | | | | | [facility] | [facility] | [facility] | | | | | | [facility] | | | | | | CENTER | | | | | | LABORATORY | | + + + + + + | MCH | 27.7 | 27.0 - 34.0 pg | [facility] | | | | | | [facility] | [facility] | [facility] | | | | | | [facility] | | | | | | CENTER | | | | | | LABORATORY | | + + + + + + | MCHC | 33.5 | 32.0 - 35.5 | [facility] | | | | | g/dL | [facility] | | | | [facility] | | | | | | [facility] | | | | | | CENTER | | | | | | LABORATORY | | + + + + + + | RDW-CV | 15.7 (H) | 11.0 - 15.5 % | [facility] | | | | | | [facility] | [facility] | | | | | | [facility] | | | | | | CENTER | | | | | | LABORATORY | | + + + + + + | Platelet | 287 | 150 - 400 K/uL | [facility] | | | Count | | | [facility] | | | | | | [facility] | | | | | | MEDICAL | | | | | | CENTER | | | | | | LABORATORY | | + + + + + + | Differentia | Automated | | [facility] | | | l Type | | | [facility] | | | | | [facility] | | | | | | [facility] | | | | | | CENTER | | | | | | LABORATORY | | + + + + + + | % | 80.9 (H) | 40.0 - 75.0 % | [facility] | | | Neutrophils | | | [facility] | | | | | | [facility] | | | | | | MEDICAL | | | | | | CENTER | | | | | | LABORATORY | | + + + + + + | % | 9.4 (L) | 15.0 - 48.0 % | [facility] | | | Lymphocytes | | | [facility] | | | | | | [facility] | | | | | | MEDICAL | | | | | | CENTER | | | | | | LABORATORY | | + + + + + + | % Monocytes | 7.6 | 0.0 - 12.0 % | [facility] | | | | | | [facility] | | | | | [facility] | | | | | | MEDICAL | | | | | | CENTER | | | | | | LABORATORY | | + + + + + + | % | 1.4 | 0.0 - 7.0 % | [facility] | | | Eosinophils | | | [facility] | | | | | | [facility] | | | | | | MEDICAL | | | | | | CENTER | | | | | | LABORATORY | | + + + + + + | % Basophils | 0.7 | 0.0 - 2.0 % | [facility] | | | | | | [facility] | | | | | [facility] | | | | | | MED[facility] | | | | | | CENTER | | | | | | LABORATORY | | + + + + + + | Absolute | 6.30 | 1.90 - 7.40 | [facility] | | | Neutrophils | | K/uL | [facility] | | | | | | [facility] | | | | | | MEDICAL | | | | | | CENTER | | | | | | LABORATORY | | + + + + + + | Absolute | 0.70 (L) | 1.00 - 3.90 | [facility] | | | Lymphocytes | | K/uL | [facility] | | | | | | [facility] | | | | | | MEDICAL | | | | | | CENTER | | | | | | LABORATORY | | + + + + + + | Absolute | 0.60 | 0.00 - 0.80 | [facility] | | | Monocytes | | K/uL | [facility] | | | | | | [facility] | | | | | | MEDICAL | | | | | | CENTER | | | | | | LABORATORY | | + + + + + + | Absolute | 0.10 | 0.00 - 0.50 | [facility] | | | Eosinophils | | K/uL | [facility] | | | | | | [facility] | | | | | | MEDICAL | | | | | | CENTER | | | | | | LABORATORY | | + + + + + + | Absolute | 0.10 | 0.00 - 0.10 | [facility] | | | Basophils | | K/uL | [facility] | | [...] + + | [facility] | [address] | [place] [address] | | | [facility] | | | | | LABORATORY | | | | + + + + + LVEF VALUE (02/23/2015) + +-------+ + + + | Component | Value | Ref Range | Performed | Pathologist | | | | | At | Signature | + +-------+ + + + | LVEF-TTE | 55 | | | | | TRANSTHORAC | | | | | | IC ECHO | | | | | + +-------+ + + + Extra Hold Tube(s) (02/22/2015 2:42 PM PDT) + +-------+ + + + | Component | Value | Ref Range | Performed | Pathologist | | | | | At | Signature | + +-------+ + + + | Extra Tube | URINE | | [facility] | | | | [...] + + | [facility] | [address] | [place] [address] | | | [facility] | | | | | LABORATORY | | | | + + + + + Sodium, Urine, Random (02/22/2015 2:22 PM PDT) + +-------+ + + + | Component | Value | Ref Range | Performed | Pathologist | | | | | At | Signature | + +-------+ + + + | Sodium, | <10 | 0 - 259 mmol/L | [facility] | | | Urine | | | [facility] | | | Random | | | HEART | | | [...] + | [facility] | [address] | [place] [address] | | | [facility] | | | | | LABORATORY | | | | + + + + + Osmolality, Urine (02/22/2015 2:22 PM PDT) + +-------+ + + + | Component | Value | Ref Range | Performed | Pathologist | | | | | At | Signature | + +-------+ + + + | Osmolality | 253 | 50 - 1,200 | [facility] | | | Urine | | mOsm/kg | [facility] | | | | | [...] + | [facility] | [address] | [place] [address] | | | [facility] | | | | | LABORATORY | | | | + + + + + XR Hand Left 3 + Vw (02/22/2015 8:42 AM PDT) + + | Specimen | + + | | + + + + + | Narrative | Performed At | + + + | LEFT HAND THREE VIEWS CLINICAL INFORMATION: Left hand | [facility] | | infection with swelling and discharge. Please evaluate for | | | osteomyelitis or synovitis. COMPARISON: None. FINDINGS: No | | | fracture or dislocation. No significant arthropathy or soft tissue | | | abnormalities. Normal bone mineralization. IMPRESSION: Negative | | | hand. | | + + + + + | Procedure Note | + + | Presley Dumont Results In - 02/22/2015 9:11 AM PDT | | | | LEFT HAND THREE VIEWS | | | | CLINICAL INFORMATION: | | Left hand infection with swelling and discharge. Please evaluate for | | osteomyelitis or synovitis. | | | | COMPARISON: | | None. | | | | FINDINGS: | | No fracture or dislocation. No significant arthropathy or soft | | tissue abnormalities. Normal bone mineralization. | | | | IMPRESSION: | | Negative hand. | + + + +---------+ + + | Performing | Address | City/State/Zipcode | Phone Number | | Organization | | | | + +---------+ + + | [facility] | | | | + +---------+ + + Drugs of Abuse, Screen, Urine (02/22/2015 8:40 AM PDT) + + + + + [...] | | | mine | | | [facility] | | | Screen, | | | HEART | | | Urine | | | MEDICAL | | | [...] | | | malorie | | | [facility] | | | Screen, | | | HEART | | | Urine | | | MEDICAL | | | | | | CENTER | | | | | | LABORATORY | | + + + + + + | Cocaine | Negative | Negative | [facility] | | | Metabolites | | | [facility] | | | , Ur | | | HEART | | [...] | entire battery is for | | [facility] | | | | screening purposes only. | | HEART | | | | Results are not | | MEDICAL | | | | confirmed.Please note: | | CENTER | | | | Some medications cause | | LABORATORY | | | | positive results with [...] for legal purposes. | | | | | | | [...] | Urine specimen | | (specimen) - Urine, | | Clean Catch | + + + + + + + | Performing | Address | City/State/Zipcode | Phone Number | | Organization | | | | + + + + + | [facility] | [address] | [place] [address] | | | [facility] | | | | | LABORATORY | | | | + + + + + Culture, Urine (02/22/2015 8:39 AM PDT) + + + + + + | Component | Value | Ref Range | Performed | Pathologist | | | | | At | Signature | + + + + + + | Specimen | Urine | | [facility] | | | Source | | | [facility] | | | | | | HEART | | | | | | MEDICAL | | | | | | CENTER | | | | | | LABORATORY | | + + + + + + | RESULT | Mixed selena | | [facility] | | | | | | [facility] | | | | | | HEART | | | | | | MEDICAL | | | | | | CENTER | | | | | | LABORATORY | | + + + + + + | Status | 02/23/2015 Final | | [facility] | | | [...] + + | [facility] | [address] | [place] [address] | | | [facility] | | | | | LABORATORY | | | | + + + + + Urinalysis with Microscopic with Culture if Indicated (02/22/2015 8:39 AM PDT) + + + + + + | Component | Value | Ref Range | Performed | Pathologist | | | | | At | Signature | + + + + + + | Color | Tia | | [facility] | | | | [...] + | Glucose, | Negative | Negative mg/dL | [facility] | | [...] + + + + | Ketones, | Trace (A) | Negative mg/dL | [facility] | | | Urine | | | [facility] | | | | | | HEART | | | | | | MEDICAL | | | | | | CENTER | | | | | | LABORATORY | | + + + + + + | Specific | 1.024 | 1.001 - 1.030 | [facility] | | | [place] | | | [facility] | | | | | | HEART | | | | | | MEDICAL | | | | | | CENTER | | | | | | LABORATORY | | + + + + + + | pH, Urine | 5.0 | 5.0 - 7.5 | [facility] | | | | | | [facility] | | | | | | HEART | | | | | | MEDICAL | | | | | | CENTER | | | | | | LABORATORY | | + + + + + + | Protein, | 30 (A) | Negative mg/dL | [facility] | [...] + + + + | Blood, | Negative | Negative | [facility] | | | Urine | | | [facility] | | | | | | HEART | | | | | | MEDICAL | | | | | | CENTER | | | | | | LABORATORY | | + + + + + + | Leukocyte | Moderate (A) | Negative | [facility] | | | Esterase, | | | [facility] | | | Urine | | | HEART | | | | | | MEDICAL | | | | | | CENTER | | | | | | LABORATORY | | + + + + + + | WBC UA | 6 (H) | <6 /hpf | [facility] | | | | | | [facility] | | | | | | HEART | | | | | | MEDICAL | | | | | | CENTER | | | | | | LABORATORY | | + + + + + + | RBC UA | <1 | <6 /hpf | [facility] | | | | | | [facility] | | | | | | HEART | | | | | | MEDICAL | | | | | | CENTER | | | | | | LABORATORY | | + + + + + + | BACTERIA UA | None seen | /hpf | [facility] | | | | | | [facility] | | | | | | HEART | | | | | | MEDICAL | | | | | | CENTER | | | | | | LABORATORY | | + + + + + + | SQUAMOUS | ManyComment: Healthy | /lpf | [facility] | | | EPITHELIAL | individuals show up to | | [facility] | | | UA | FEW squamous epithelial | | HEART | | | | cells in the urine, | | MEDICAL | | | | depending on collection | | CENTER | | | | method. | | LABORATORY | | + + + + + + | Culture | Culture Set Up (A) | Culture not | [facility] | | | Indicated | | indicated | [facility] | | | | | | HEART | | | | | | MEDICAL | | | | | | CENTER | | | | | | LABORATORY | | + + + + + + + + | Specimen | + + | Urine specimen | | (specimen) - Urine, | | Clean Catch | + + + + + + + | Performing | Address | City/State/Zipcode | Phone Number | | Organization | | | | + + + + + | [facility] | [address] | [place] [address] | | | [facility] | | | | | LABORATORY | | | | + + + + + XR Chest AP Portable (02/22/2015 8:15 AM PDT) + + | Specimen | + + | | + + + + + | Narrative | Performed At | + + + | AP SEMI UPRIGHT PORTABLE CHEST X-RAY CLINICAL INFORMATION: | [facility] | | Fever, possible sepsis, hand infection. COMPARISON: 12/26/2014, | | | 01/22/2011, 08/14/2008 FINDINGS: The patient is rotated to the | | | right and the projection is semi lordotic. There is mild suboptimal | | | expansion with secondary changes. The bones and soft tissues appear | | | unremarkable for age and body habitus with some degenerative changes | | | of the spine. There is a tortuous thoracic aorta with some | | | intramural calcification. The mediastinum, pericardial cardiac | | | silhouette, pulmonary elvin, and pulmonary vasculature appear | | | unchanged taking into account the projection and degree of expansion. | | | No pulmonary infiltrates or pulmonary nodules are seen. No pleural | | | fluid is seen. IMPRESSION: Chest x-ray felt to be stable with | | | chronic findings as described taking into account the projection and | | | degree of expansion. No definite acute cardio-pulmonary findings are | | | seen. | | + + + + + | Procedure Note | + + | Tim, Rad Results In - 02/22/2015 9:38 AM PDT | | | | AP SEMI UPRIGHT PORTABLE CHEST X-RAY | | | | CLINICAL INFORMATION: | | Fever, possible sepsis, hand infection. | | | | COMPARISON: | | 12/26/2014, 01/22/2011, 08/14/2008 | | | | FINDINGS: | | The patient is rotated to the right and the projection is semi | | lordotic. There is mild suboptimal expansion with secondary changes. | | The bones and soft tissues appear unremarkable for age and body | | habitus with some degenerative changes of the spine. There is a | | tortuous thoracic aorta with some intramural calcification. The | | mediastinum, pericardial cardiac silhouette, pulmonary elvin, and | | pulmonary vasculature appear unchanged taking into account the | | projection and degree of expansion. No pulmonary infiltrates or | | pulmonary nodules are seen. No pleural fluid is seen. | | | | IMPRESSION: | | Chest x-ray felt to be stable with chronic findings as described | | taking into account the projection and degree of expansion. No | | definite acute cardio-pulmonary findings are seen. | + + + +---------+ + + | Performing | Address | City/State/Zipcode | Phone Number | | Organization | | | | + +---------+ + + | [facility] | | | | + +---------+ + + Culture, Wound, Smear (02/22/2015 8:00 AM PDT) + + + + + + | Component | Value | Ref Range | Performed | Pathologist | | | | | At | Signature | + + + + + + | Specimen | Hand | | [facility] | | | Source | | | [facility] | | | | | | HEART | | | | | | MEDICAL | | | | | | CENTER | | | | | | LABORATORY | | + + + + + + | Gram Stain | Abundant neutrophilsNo | | [facility] | | | | squamous epithelial | | [facility] | | | | cells seenGram Positive | | HEART | | | | Cocci resembling | | MEDICAL | | | | StrepGram Positive Cocci | | CENTER | | | | resembling | | LABORATORY | | | | Staph=====CULTURE | | | | | | RESULTS===== | | | | + + + + + + | RESULT | Beta Streptococcus Group | | [facility] | | | | A (A) | | [facility] | | | | | | HEART | | | | | | MEDICAL | | | | | | CENTER | | | | | | LABORATORY | | + + + + + + | RESULT | Group A Strep is | | [facility] | | | | predictably susceptible | | [facility] | | | | to penicillins and | | HEART | | | | cephalosporins. | | MEDICAL | | | | Surveillance testing of | | CENTER | | | | regional isolates has | | LABORATORY | | | | shown 12% and 8% | | | | | | resistance to | | | | | | clindamycin and | | | | | | erythromycin, | | | | | | respectively. | | | | + + + + + + | RESULT | Results called to: | | [facility] | | | | [place] [address] ON | | [facility] | | | | 02/23 AT 1000 Verified by | | HEART | | | | readback. | | MEDICAL | | | | | | CENTER | | | | | | LABORATORY | | + + + + + + | RESULT | (MRSA) Staphylococcus | | [facility] | | | | aureus Resistant | | [facility] | | | | microorganism. Contact | | HEART | | | | precautions required. | | MEDICAL | | | | (A) | | CENTER | | | | | | LABORATORY | | + + + + + + | RESULT | Mixed selena | | [facility] | | | | | | [facility] | | | | | | HEART | | | | | | MEDICAL | | | | | | CENTER | | | | | | LABORATORY | | + + + + + + | RESULT | No anaerobes isolated | | [facility] | | | | | | [facility] | | | | | | HEART | | | | | | MEDICAL | | | | | | CENTER | | | | | | LABORATORY | | + + + + + + | Status | 02/25/2015 Final | | [facility] | | | | | | [facility] | | | | | | HEART | | | | | | MEDICAL | | | | | | CENTER | | | | | | LABORATORY | | + + + + + + | ORGANISM | (MRSA) Staphylococcus | | [facility] | | | | aureus | | [facility] | | | | | | HEART | | | | | | MEDICAL | | | | | | CENTER | | | | | | LABORATORY | | + + + + + + + + | Specimen | + + | Specimen from wound | | (specimen) - Hand | + + + + + + + | Organism | Antibiotic | Method | Susceptibility | + + + + + | Staphylococcus | Cefazolin | SUSCEPTIBILITY | Resistant | | aureus,Methicillin | | | | | resistant (MRSA) | | | | + + + + + | Staphylococcus | Clindamycin | SUSCEPTIBILITY | Resistant | | aureus,Methicillin | | | | | resistant (MRSA) | | | | + + + + + | Staphylococcus | Erythromycin | SUSCEPTIBILITY | Resistant | | aureus,Methicillin | | | | | resistant (MRSA) | | | | + + + + + | Staphylococcus | Gentamicin | SUSCEPTIBILITY | Sensitive | | aureus,Methicillin | | | | | resistant (MRSA) | | | | + + + + + | Staphylococcus | Levofloxacin | SUSCEPTIBILITY | Resistant | | aureus,Methicillin | | | | | resistant (MRSA) | | | | + + + + + | Staphylococcus | Minocycline | SUSCEPTIBILITY | Sensitive | | aureus,Methicillin | | | | | resistant (MRSA) | | | | + + + + + | Staphylococcus | Oxacillin | SUSCEPTIBILITY | Resistant | | aureus,Methicillin | | | | | resistant (MRSA) | | | | + + + + + | Staphylococcus | Trimethoprim + | SUSCEPTIBILITY | Sensitive | | aureus,Methicillin | Sulfamethoxazole | | | | resistant (MRSA) | | | | + + + + + | Staphylococcus | Vancomycin | SUSCEPTIBILITY | Sensitive | | aureus,Methicillin | | | | | resistant (MRSA) | | | | + + + + + + + | Comment: (MRSA) | | Staphylococcus | | aureus Resistant | | microorganism. | | Contact precautions | | required. | + + + + + + + | Performing | Address | City/State/Zipcode | Phone Number | | Organization | | | | + + + + + | [facility] | [address] [facility] [address] | [place] [address] | | | [facility] | | | | | LABORATORY | | | | + + + + + Culture, Blood (02/22/2015 7:55 AM PDT) + + + + + + | Component | Value | Ref Range | Performed | Pathologist | | | | | At | Signature | + + + + + + | Specimen | Blood L BICEP | | [facility] | | | Source | | | [facility] | | | | | | HEART | | | | | | MEDICAL | | | | | | CENTER | | | | | | LABORATORY | | + + + + + + | RESULT | DIRECT GRAM STAIN | | [facility] | | | | RESULT: Gram Positive | | [facility] | | | | Cocci resembling Strep | | HEART | | | | (A) | | MEDICAL | | | | | | CENTER | | | | | | LABORATORY | | + + + + + + | RESULT | Results called to: KATE | | [facility] | | | | K. ON 02/23/2015 AT 0140 | | [facility] | | | | AT SH. Verified by | | HEART | | | | readback. | | MEDICAL | | | | | | CENTER | | | | | | LABORATORY | | + + + + + + | RESULT | CULTURE RESULT: Beta | | [facility] | | | | Streptococcus Group A | | [facility] | | | | isolated. (A) | | HEART | | | | | | MEDICAL | | | | | | CENTER | | | | | | LABORATORY | | + + + + + + | RESULT | Group A Strep is | | [facility] | | | | predictably susceptible | | [facility] | | | | to penicillins and | | HEART | | | | cephalosporins. | | MEDICAL | | | | Surveillance testing of | | CENTER | | | | regional isolates has | | LABORATORY | | | | shown 12% and 8% | | | | | | resistance to | | | | | | clindamycin and | | | | | | erythromycin, | | | | | | respectively. | | | | + + + + + + | Status | 02/28/2015 Final | | [facility] | | | | | | [facility] | | | | | | HEART | | | | | | MEDICAL | | | | | | CENTER | | | | | | LABORATORY | | + + + + + + + + | Specimen | + + | Blood specimen | | (specimen) - | | Peripheral Blood | + + + + + + + | Performing | Address | City/State/Zipcode | Phone Number | | Organization | | | | + + + + + | [facility] | [address] | [place] [address] | | | [facility] | | | | | LABORATORY | | | | + + + + + Osmolality, Serum (02/22/2015 7:52 AM PDT) + +---------+ + + + | Component | Value | Ref Range | Performed | Pathologist | | | | | At | Signature | + +---------+ + + + | Osmolality | 271 (L) | 275 - 295 | [facility] | | | Serum | | mOsm/kg | [facility] | | | | | [...] + + | [facility] | [address] | [place] [address] | | | [facility] | | | | | LABORATORY | | | | + + + + + Extra Hold Tube(s) (02/22/2015 7:52 AM PDT) + + + + + + | Component | Value | Ref Range | Performed | Pathologist | | | | | At | Signature | + + + + + + | Extra Tube | SST,BLUE | | [facility] | | | | [...] + + | [facility] | [address] | [place] [address] | | | [facility] | | | | | LABORATORY | | | | + + + + + Lactic Acid (02/22/2015 7:52 AM PDT) + +-------+ + + + | Component | Value | Ref Range | Performed | Pathologist | | | | | At | Signature | + +-------+ + + + | Lactate, | 1.3 | 0.5 - 2.2 | [facility] | | | Venous | | mmol/L | [facility] | | [...] + + | [facility] | [address] | [place] [address] | | | [facility] | | | | | LABORATORY | | | | + + + + + Basic Metabolic Panel (02/22/2015 7:52 AM PDT) + + + + + + | Component | Value | Ref Range | Performed | Pathologist | | | | | At | Signature | + + + + + + | Na | 130 (L) | 135 - 145 | [facility] | | | | | mmol/L | [facility] | | | | | | HEART | | | | | | MEDICAL | | | | | | CENTER | | | | | | LABORATORY | | + + + + + + | K | 4.6Comment: Slight | 3.5 - 5.0 | [facility] | | | | Hemolysis | mmol/L | [facility] | | | [...] + + + + | Glucose | 104 (H)Comment: Irish | 65 - 99 mg/dL | [facility] | | | | Diabetes Association | [...] + + + + | BUN | 20 | 8 - 25 mg/dL | [facility] | | | | | | [facility] | | | | | | HEART | | | | | | MEDICAL | | | | | | CENTER | | | | | | LABORATORY | | + + + + + + | Creatinine | 1.13 (H)Comment: IDMS | 0.50 - 1.00 | [facility] [...] + + + | Anion Gap | 6 | 5 - 16 mmol/L | [facility] | | | | | | [facility] | | | | | | HEART | | | | | | MEDICAL | | | | | | CENTER | | | | | | LABORATORY | | + + + + + + | Estimated | 49 (L)Comment: GFR <60: | >60 | [facility] | [...] + + | [facility] | [address] | [place] [address] | | | [facility] | | | | | LABORATORY | | | | + + + + + C-Reactive Protein (02/22/2015 7:52 AM PDT) + + + + + + | Component | Value | Ref Range | Performed | Pathologist | | | | | At | Signature | + + + + + + | CRP | 8.5 (H)Comment: This CRP | 0.0 - 1.5 mg/dL | [facility] | | | | assay is useful as a | | [...] + | [facility] | [address] | [place] [address] | | | [facility] | | | | | LABORATORY | | | | + + + + + Sedimentation Rate (02/22/2015 7:52 AM PDT) + +--------+ + + + | Component | Value | Ref Range | Performed | Pathologist | | | | | At | Signature | + +--------+ + + + | ESR | 64 (H) | 0 - 20 mm/h | [...] + + + + + | [facility] | [address] | [place] [address] | | | [facility] | | | | | LAB[facility]ATORY | | | | + + + + + CBC with Differential (02/22/2015 7:52 AM PDT) + + + + + + | Component | Value | Ref Range | Performed | Pathologist | | | | | At | Signature | + + + + + + | WBC | 11.1 (H) | 3.8 - 11.0 K/uL | [facility] | [facility] | | [facility] | | | [facility] | | | | | | LABORATORY | | + + + + + + | RBC | 4.81 | 3.70 - 5.10 | [facility] | | | | | M/uL | [facility] | [facility] | [facility] | | | | | | [facility] | | | | | | LABORATORY | | + + + + + + | Hemoglobin | 13.2 | 11.3 - 15.5 | [facility] | | | | | g/dL | [facility] | [facility] | | [facility] | | | | | | [facility] | | | | | | LABORATORY | | + + + + + + | Hematocrit | 39.4 | 34.0 - 46.0 % | [facility] | [facility] | | | | | [facility] | | | | | | LABORATORY | | + + + + + + | MCV | 81.8 | 80.0 - 100.0 fL | [facility] | | | [facility] | | | | | | HEART | | | | | | MEDICAL | | | | | | CENTER | | | | | | LABORATORY | | + + + + + + | MCH | 27.4 | 27.0 - 34.0 pg | [facility] | | | | [facility] | [facility] | | | | | | [facility] | | | | | | [facility] | | | | | | LABORATORY | | + + + + + + | M[facility] | 33.5 | 32.0 - 35.5 | [facility] | | | | | g/dL | [facility] | | | | [facility] | | | | | | [facility] | | | | | | [facility]ENTER | | | | | | LABORATORY | | + + + + + + | RDW-CV | 15.6 (H) | 11.0 - 15.5 % | [facility] | | | | | [facility] | [facility] | | | | | | [facility] | | | | | | [facility]ENTER | | | | | | LABORATORY | | + + + + + + | Platelet | 366 | 150 - 400 K/uL | [facility] | | | Count | | | [facility] | | | | | | [facility] | | | | | | MEDICAL | | | | | | CENTER | | | | | | LABORATORY | | + + + + + + | Differentia | Automated | | [facility] | | | l Type | | | [facility] | | | | | [facility] | | | | | | MEDICAL | | | | | | CENTER | | | | | | LABORATORY | | + + + + + + | % | 91.1 (H) | 40.0 - 75.0 % | [facility] | | | Neutrophils | | | [facility] | | | | | | HE[facility] | | | | | | MEDICAL | | | | | | CENTER | | | | | | LABORATORY | | + + + + + + | % | 3.8 (L) | 15.0 - 48.0 % | [facility] | | | Lymphocytes | | | [facility] | | | | | | [facility] | | | | | | MEDICAL | | | | | | CENTER | | | | | | LABORATORY | | + + + + + + | % Monocytes | 3.7 | 0.0 - 12.0 % | [facility] | | | | | | [facility] | [facility] | | [facility] | | | | | | [facility] | | | | | | CENTER | | | | | | LABORATORY | | + + + + + + | % | 0.9 | 0.0 - 7.0 % | [facility] | | | Eosinophils | | | [facility] | | | | | | HE[facility] | | | | | | MEDICAL | | | | | | CENTER | | | | | | LABORATORY | | + + + + + + | % Basophils | 0.5 | 0.0 - 2.0 % | [facility] | | | | | | [facility] | [facility] | [facility] | | | | | | [facility] | | | | | | CENTER | | | | | | LABORATORY | | + + + + + + | Absolute | 10.10 (H) | 1.90 - 7.40 | [facility] | | | Neutrophils | | K/uL | [facility] | | | | | | HE[facility] | | | | | | MEDICAL | | | | | | CENTER | | | | | | LABORATORY | | + + + + + + | Absolute | 0.40 (L) | 1.00 - 3.90 | [facility] | | | Lymphocytes | | K/uL | [facility] | | | | | | [facility] | | | | | | MEDICAL | | | | | | CENTER | | | | | | LABORATORY | | + + + + + + | Absolute | 0.40 | 0.00 - 0.80 | [facility] | | | Monocytes | | K/uL | [facility] | | | | | | HE[facility] | | | | | | MEDICAL | | | | | | CENTER | | | | | | LABORATORY | | + + + + + + | Absolute | 0.10 | 0.00 - 0.50 | [facility] | | | Eosinophils | | K/uL | [facility] | | | | | | HE[facility] | | | | | | MEDICAL | | | | | | CENTER | | | | | | LABORATORY | | + + + + + + | Absolute | 0.10 | 0.00 - 0.10 | [facility] | | | Basophils | | K/uL | [facility] | | [...] + | [facility] | [address] | [place] [address] | | | [facility] | | | | | LABORATORY | | | | + + + + + Culture, Blood (02/22/2015 7:35 AM PDT) + + + + + + | Component | Value | Ref Range | Performed | Pathologist | | | | | At | Signature | + + + + + + | Specimen | Blood RAC | | [facility] | | | Source | | | [facility] | | | | | | [facility] | | | | | | MEDICAL | | | | | | CENTER | | | | | | LABORATORY | | + + + + + + | RESULT | DIRECT GRAM STAIN | | [facility] | | | | RESULT: Gram Positive | | [facility] | | | | Cocci resembling Strep | | HEART | | | | (A) | | MEDICAL | | | | | | CENTER | | | | | | LABORATORY | | + + + + + + | RESULT | Results called to: JEET | | [facility] | | | | C TAYLA 9N 02/22 2105 | | [facility] | | | | Verified by readback. | | HEART | | | | | | MEDICAL | | | | | | CENTER | | | | | | LABORATORY | | + + + + + + | RESULT | Positive by FilmArray | | [facility] | | | | PCR for: Beta | | [facility] | | | | Streptococcus Group A | | HEART | | | | (A) | | MEDICAL | | | | | | CENTER | | | | | | LABORATORY | | + + + + + + | RESULT | Results called to: JEET | | [facility] | | | | C SH 9N 02/22 2235 | | [facility] | | | | Verified by readback. | | HEART | | | | | | MEDICAL | | | | | | CENTER | | | | | | LABORATORY | | + + + + + + | RESULT | CULTURE RESULT: Beta | | [facility] | | | | Streptococcus Group A | | [facility] | | | | isolated. (A) | | HEART | | | | | | MEDICAL | | | | | | CENTER | | | | | | LABORATORY | | + + + + + + | RESULT | Group A Strep is | | [facility] | | | | predictably susceptible | | [facility] | | | | to penicillins and | | HEART | | | | cephalosporins. | | MEDICAL | | | | Surveillance testing of | | CENTER | | | | regional isolates has | | LABORATORY | | | | shown 12% and 8% | | | | | | resistance to | | | | | | clindamycin and | | | | | | erythromycin, | | | | | | respectively. | | | | + + + + + + | Status | 02/24/2015 Final | | [facility] | | | | | [facility] | | | | | | [facility] | | | | | | MEDICAL | | | | | | CENTER | | | | | | LABORATORY | | + + + + + + + + | Specimen | + + | Blood specimen | | (specimen) - | | Peripheral Blood | + + + + + + + | Performing | Address | City/State/Zipcode | Phone Number | | Organization | | | | + + + + + | [facility] | [address] | [place] [id number] | | | [facility] | | | | | LABORATORY | | | | + + + + + ED INFORMATION EXCHANGE (02/22/2015 7:09 AM PDT) + + | Specimen | + + | | + + + + + | Narrative | Performed At | + + + | VISIT TRACKING (3 MO.) Visit Date Location | [place] [facility] | | Type Diagnoses | | | -------- ---- | | | 02/22/2015 07:08 [facility] | | | Emergency -fever, chills 02/01/2015 14:46 [facility] -FIT/ADJ VASCULAR CATHETER | | | | | | 2. Old myocardial infarction | | | | | | 3. Tobacco use disorder | | | 4. | | | PERSONAL HIST OF METHICILLIN RESISTANT STAPHYLOCOC | | | | | | 5. PERCUTANEOUS TRANSLUM CORON ANGIOPLASTY STATUS | | | | | | 6. ACQUIRED ABSENCE OF BOTH CERVIX AND UTERUS | | | 01/08/2015 21:11 [facility] Emergency | | | -Cellulitis and abscess of hand, except fingers and thumb | | | | | | 2. Unspecified essential hypertension | | | | | | 3. Old myocardial infarction | | | | | | 4. PERCUTANEOUS TRANSLUM CORON ANGIOPLASTY STATUS | | | | | | 5. Tobacco use disorder 12/26/2014 18:55 [place] | | | [facility] -3- Skin Problem | | | | | | -Skin Problem | | | -Cellulitis and | | | abscess of unspecified sites | | | -Leukocytosis, | | | unspecified | | | -3 Skin Problem | | | | | | -Hyposmolality and/or hyponatremia | | | | | | -Coronary atherosclerosis of unspecified type of vessel, | | | [place] or graft | | | -Hand Swelling VISIT | | | COUNT (1 YR.) Visits Medicaid [place] Dx Location ------ | | | --------- 4 0 | | | [facility] 2 0 | | | [facility] 1 0 | | | [facility] 7 0 Total | | | Note: Visits indicate total known visits. [place] Dx are the | | | number of primary diagnoses on the [facility]'s non-emergent dx list. | | | | | | --- Guidelines Source: [facility] Guidelines Date: | | | 09/06/2013 Care Recommendation: Care at [facility] | | | Health Past Medical & Surgical History: Anxiety, | | | hypertension, diverticulosis, myocardial infarction 2011, coronary | | | artery stenting, dentalgia.History of drug and alcool abuse. | | | Right arm abscess. Hysterectomy. Medications: Seroquel, Lisinopril, | | | Prozac, Hydroxyzine, Carvedilol, Aspirin, Clopidogrel, | | | Atorvastatin, Nitrostat. Social History: Alcohol, Tobacco | | | and marijuana use. Past h/o heroin use. , disabled, person to | | | shanelle Cruz, daughter | | + + + + +---------+ + + | Performing | Address | City/State/Zipcode | Phone Number | | Organization | | | | + +---------+ + + | [place] [facility] | | | | + +---------+ + + documented in this encounter Visit Diagnoses + + | Diagnosis | + + | Cellulitis and abscess of hand, except fingers and thumb - Primary | + + | Sepsis, due to unspecified organism | + + | Cellulitis and abscess Cellulitis and abscess of unspecified site | + + | Hyponatremia Hyposmolality and/or hyponatremia | + + | UTI (lower urinary tract infection) Urinary tract infection, site not specified | + + | GILDARDO (acute kidney injury) (HCC) Acute kidney failure, unspecified | + + | Methamphetamine use ([facility]) Nondependent amphetamine or related acting sympathomimetic | | abuse, unspecified | + + | Bipolar affective disorder, current episode depression, unspecified severity | + + | Heroin dependence (HCC) Opioid type dependence, unspecified | + + | Other and unspecified hyperlipidemia | + + | Personal history of tobacco use, presenting hazards to health | + + | Unspecified essential hypertension | + + | Bacteremia due to Streptococcus / Sepsis Bacteremia | + + | Hypertension Unspecified essential hypertension | + + | Ischemic cardiomyopathy Other specified forms of chronic ischemic heart disease | + + | Mixed hyperlipidemia | + + | Bipolar disorder (HCC) Bipolar disorder, unspecified | + + | Smoker - Daily Tobacco use disorder | + + documented in this encounter Admitting Diagnoses + + | Diagnosis | + + | GILDARDO (acute kidney injury) (HCC) Acute kidney failure, unspecified | + + documented in this encounter Administered Medications + +--------+ + +------+------+ | Medication Order | MAR | Action | Dose | Rate | Site | | | Action | Date | | | | + +--------+ + +------+------+ | adult multivitamin with | Given | 02/25/20 | 1 tablet | | | | minerals/iron tablet 1 tablet 1 | | 15 7:58 | | | | | tablet, Oral, DAILY WITH | | AM PDT | | | | | BREAKFAST, First dose on Marycarmen | | | | | | | 02/23/15 at 0930 | | | | | | + +--------+ + +------+------+ +-------+ + +---+---+ | Given | 02/24/20 | 1 tablet | | | | | 15 10:06 | | | | | | AM PDT | | | | +-------+ + +---+---+ +---+---+ | | | +---+---+ + +-------+ +-------+---+---+ | aspirin EC tablet 81 mg 81 mg, | Given | 02/25/20 | 81 mg | | | | Oral, DAILY, First dose on Fri | | 15 8:00 | | | | | 02/22/15 at 1100, Do not cut or | | AM PDT | | | | | crush., | | | | | | + +-------+ +-------+---+---+ +-------+ +-------+---+---+ | Given | 02/24/20 | 81 mg | | | | | 15 10:06 | | | | | | AM PDT | | | | +-------+ +-------+---+---+ | Given | 02/23/20 | 81 mg | | | | | 15 12:33 | | | | | | PM PDT | | | | +-------+ +-------+---+---+ +---+---+ | | | +---+---+ + +-------+ +-------+---+---+ | atorvaSTATin (LIPITOR) tablet | Given | 02/24/20 | 40 mg | | | | 40 mg 40 mg, Oral, NIGHTLY, | | 15 8:58 | | | | | First dose on Fri02/22/15 at 2100 | | PM PDT | | | | + +-------+ +-------+---+---+ +-------+ +-------+---+---+ | Given | 02/23/20 | 40 mg | | | | | 15 8:56 | | | | | | PM PDT | | | | +-------+ +-------+---+---+ +---+---+ | | | +---+---+ + +-------+ +---------+---+---+ | carvedilol (COREG) tablet 6.25 | Given | 02/23/20 | 6.25 mg | | | | mg 6.25 mg, Oral, 2 TIMES DAILY | | 15 12:35 | | | | | WITH BREAKFAST & DINNER, First | | PM PDT | | | | | dose on Fri02/22/15 at 1100 | | | | | | + +-------+ +---------+---+---+ +---+---+ | | | +---+---+ + +-------+ +---------+---+---+ | carvedilol (COREG) tablet 6.25 | Given | 02/25/20 | 6.25 mg | | | | mg 6.25 mg, Oral, 2 TIMES DAILY | | 15 7:58 | | | | | WITH BREAKFAST & DINNER, First | | AM PDT | | | | | dose (after last modification) on | | | | | | | [facility] 02/23/15 at 0800, hol ro SBP | | | | | | | < 110 or HR < 50, | | | | | | + +-------+ +---------+---+---+ +-------+ +---------+---+---+ | Given | 02/24/20 | 6.25 mg | | | | | 15 4:55 | | | | | | PM PDT | | | | +-------+ +---------+---+---+ | Given | 02/24/20 | 6.25 mg | | | | | 15 10:09 | | | | | | AM PDT | | | | +-------+ +---------+---+---+ +---+---+ | | | +---+---+ + +---------+ +-----+-------+---+ | cefTRIAXone (ROCEPHIN) 2 g in | New Bag | 02/25/20 | 2 g | 100 | | | sodium chloride 0.9% 50 mL IVPB | | 15 8:00 | | mL/hr | | | 2 g, Intravenous, Administer over | | AM PDT | | | | | 30 Minutes, EVERY 24 HOURS | | | | | | | (Daily), First dose on Marycarmen | | | | | | | 02/23/15 at 0930, Activate system | | | | | | | and mix before use., | | | | | | + +---------+ +-----+-------+---+ +---------+ +-----+-------+---+ | New Bag | 02/24/20 | 2 g | 100 | | | | 15 10:10 | | mL/hr | | | | AM PDT | | | | +---------+ +-----+-------+---+ +---+---+ | | | +---+---+ + +-------+ +-------+---+---+ | FLUoxetine (PROzac) capsule 20 | Given | 02/25/20 | 20 mg | | | | mg 20 mg, Oral, DAILY, First | | 15 8:00 | | | | | dose on Fri02/22/15 at 1100 | | AM PDT | | | | + +-------+ +-------+---+---+ +-------+ +-------+---+---+ | Given | 02/24/20 | 20 mg | | | | | 15 10:06 | | | | | | AM PDT | | | | +-------+ +-------+---+---+ | Given | 02/23/20 | 20 mg | | | | | 15 12:33 | | | | | | PM PDT | | | | +-------+ +-------+---+---+ +---+---+ | | | +---+---+ + +-------+ +--------+---+ + | fondaparinux (ARIXTRA) | Given | 02/25/20 | 2.5 mg | | Abdomen- | | injection 2.5 mg 2.5 mg, | | 15 8:01 | | | LLQ | | Subcutaneous, DAILY, First dose | | AM PDT | | | | | on Fri02/22/15 at 1100 | | | | | | + +-------+ +--------+---+ + +-------+ +--------+---+ + | Given | 02/24/20 | 2.5 mg | | Abdomen- | | | 15 10:09 | | | LLQ | | | AM PDT | | | | +-------+ +--------+---+ + | Given | 02/23/20 | 2.5 mg | | Abdomen- | | | 15 12:33 | | | LLQ | | | PM PDT | | | | +-------+ +--------+---+ + +---+---+ | | | +---+---+ + +-------+ + +---+---+ | HYDROcodone-acetaminophen | Given | 02/25/20 | 1 tablet | | | | (NORCO) 10-325 mg per tablet 1-2 | | 15 8:13 | | | | | tablet 1-2 tablet, Oral, EVERY 4 | | AM PDT | | | | | HOURS PRN, Pain, Starting Wed | | | | | | | 02/22/15 at 1030, Instructions If | | | | | | | ineffective or not tolerated use | | | | | | | Oxycodone if ordered., | | | | | | + +-------+ + +---+---+ +-------+ + +---+---+ | Given | 02/25/20 | 1 tablet | | | | | 15 3:19 | | | | | | AM PDT | | | | +-------+ + +---+---+ | Given | 02/24/20 | 1 tablet | | | | | 15 11:07 | | | | | | PM PDT | | | | +-------+ + +---+---+ +---+---+ | | | +---+---+ + +-------+ +------+---+---+ | HYDROmorphone (DILAUDID) | Given | 02/23/20 | 1 mg | | | | injection 2 mg 2 mg, | | 15 8:23 | | | | | Intravenous, EVERY 30 MIN PRN, | | AM PDT | | | | | Moderate Pain, Severe Pain, Pain, | | | | | | | Starting 02/22/15 at 0753 | | | | | | + +-------+ +------+---+---+ +---+---+ | | | +---+---+ + +-------+ +-------+---+---+ | hydrOXYzine hydrochloride | Given | 02/24/20 | 25 mg | | | | (ATARAX) tablet 25 mg 25 mg, | | 15 9:01 | | | | | Oral, NIGHTLY PRN, Itching, | | PM PDT | | | | | Anxiety, Starting 02/22/15 at | | | | | | | 1028 | | | | | | + +-------+ +-------+---+---+ +---+---+ | | | +---+---+ + +-------+ +---+---+---+ | lidocaine 1% injection | Given | 02/24/20 | | | | | Starting Marycarmen 02/23/15 at 1408, For | | 15 1:00 | | | | | 1 dose, FERNANDA PADILLA: micheal | | PM PDT | | | | | override, | | | | | | + +-------+ +---+---+---+ +---+---+ | | | +---+---+ + +-------+ +-------+---+---+ | lisinopril (PRINIVIL, ZESTRIL) | Given | 02/23/20 | 20 mg | | | | tablet 20 mg 20 mg, Oral, DAILY, | | 15 1:14 | | | | | First dose on Fri02/22/15 at | | PM PDT | | | | | 1100 | | | | | | + +-------+ +-------+---+---+ +---+---+ | | | +---+---+ + +-------+ +-------+---+---+ | lisinopril (PRINIVIL, ZESTRIL) | Given | 02/25/20 | 20 mg | | | | tablet 20 mg 20 mg, Oral, DAILY, | | 15 8:02 | | | | | First dose (after last | | AM PDT | | | | | modification) on Fri02/23/15 at | | | | | | | 0900, Hold for SBP < 115, | | | | | | + +-------+ +-------+---+---+ +-------+ +-------+---+---+ | Given | 02/24/20 | 20 mg | | | | | 15 10:09 | | | | | | AM PDT | | | | +-------+ +-------+---+---+ +---+---+ | | | +---+---+ + +-------+ +--------+---+---+ | LORazepam (ATIVAN) tablet 0.5-1 | Given | 02/25/20 | 0.5 mg | | | | mg 0.5-1 mg, Oral, EVERY 6 | | 15 8:13 | | | | | HOURS PRN, Anxiety, Starting Wed | | AM PDT | | | | | 02/22/15 at 1030 | | | | | | + +-------+ +--------+---+---+ +-------+ +--------+---+---+ | Given | 02/25/20 | 0.5 mg | | | | | 15 3:19 | | | | | | AM PDT | | | | +-------+ +--------+---+---+ | Given | 02/24/20 | 0.5 mg | | | | | 15 3:51 | | | | | | PM PDT | | | | +-------+ +--------+---+---+ +---+---+ | | | +---+---+ + +---------+ +---------+---+ + | nicotine (NICODERM) 14 mg/24 hr | Patch | 02/25/20 | 1 patch | | Chest-Le | | 1 patch 1 patch, Transdermal, | Applied | 15 8:02 | | | ft | | DAILY, First dose on Fri02/23/15 | | AM PDT | | | Anterior | | at 0900 | | | | | | + +---------+ +---------+---+ + + + +---------+---+ + | Patch Applied | 02/24/20 | 1 patch | | Back-Lef | | | 15 10:05 | | | t Upper | | | AM PDT | | | | + + +---------+---+ + +---+---+ | | | +---+---+ + +-------+ +------+---+---+ | ondansetron (ZOFRAN) injection | Given | 02/25/20 | 4 mg | | | | 4 mg 4 mg, Intravenous, EVERY 6 | | 15 5:10 | | | | | HOURS PRN, Nausea, Vomiting, | | AM PDT | | | | | Starting 02/22/15 at 1031, | | | | | | | First line agent, | | | | | | + +-------+ +------+---+---+ +---+---+ | | | +---+---+ + +---------+ +---------+-------+---+ | piperacillin-tazobactam (ZOSYN) | New Bag | 02/23/20 | 3.375 g | 200 | | | 3.375 g in sodium chloride 0.9% | | 15 8:31 | | mL/hr | | | 100 mL IVPB 3.375 g, | | AM PDT | | | | | Intravenous, Administer over 30 | | | | | | | Minutes, ONCE, 02/22/15 at | | | | | | | 0845, For 1 dose, Activate system | | | | | | | and mix before use., | | | | | | + +---------+ +---------+-------+---+ +---+---+ | | | +---+---+ + +-------+ +--------+---+---+ | potassium chloride SA | Given | 02/24/20 | 10 mEq | | | | (DEANDRA ROBLES) CR tablet 10 mEq | | 15 2:41 | | | | | 10 mEq, Oral, ONCE, [facility] 02/23/15 | | PM PDT | | | | | at 1415, For 1 dose, May take | | | | | | | with food to decrease GI upset., | | | | | | + +-------+ +--------+---+---+ +---+---+ | | | +---+---+ + +-------+ +--------+---+---+ | QUEtiapine (SEROquel) tablet | Given | 02/24/20 | 100 mg | | | | 100 mg 100 mg, Oral, NIGHTLY, | | 15 8:58 | | | | | First dose on Fri02/22/15 at 2100 | | PM PDT | | | | + +-------+ +--------+---+---+ +-------+ +--------+---+---+ | Given | 02/23/20 | 100 mg | | | | | 15 9:06 | | | | | | PM PDT | | | | +-------+ +--------+---+---+ +---+---+ | | | +---+---+ + +---------+ +--------+-------+---+ | sodium chloride 0.9% (NS) bolus | New Bag | 02/23/20 | 1,000 | 500 | | | 1,000 mL 1,000 mL, Intravenous, | | 15 8:07 | mLs | mL/hr | | | Administer over 2 Hours, ONCE, | | AM PDT | | | | | 02/22/15 at 0800, For 1 dose | | | | | | + +---------+ +--------+-------+---+ +---+---+ | | | +---+---+ + +---------+ +---------+-------+---+ | sodium chloride 0.9% (NS) bolus | New Bag | 02/23/20 | 500 mLs | 250 | | | 500 mL 500 mL, Intravenous, | | 15 5:51 | | mL/hr | | | Administer over 2 Hours, ONCE, | | PM PDT | | | | | 02/22/15 at 1815, For 1 dose, | | | | | | | Hold NS 100 cc/hr while bolus | | | | | | | being given, | | | | | | + +---------+ +---------+-------+---+ +---+---+ | | | +---+---+ + +---------+ +--------+-------+---------+ | sodium chloride 0.9% (NS) | New Bag | 02/25/20 | 1,000 | 100 | Central | | infusion at 100 mL/hr, | | 15 1:39 | mLs | mL/hr | | | Intravenous, CONTINUOUS, Starting | | AM PDT | | | | | 02/22/15 at 1100 | | | | | | + +---------+ +--------+-------+---------+ + + +---+-------+---+ | Rate/Dose Verify | 02/25/20 | | 100 | | | | 15 12:00 | | mL/hr | | | | AM PDT | | | | + + +---+-------+---+ | Rate/Dose Verify | 02/24/20 | | 100 | | | | 15 10:00 | | mL/hr | | | | PM PDT | | | | + + +---+-------+---+ +---+---+ | | | +---+---+ + +---------+ +-----+-------+---------+ | vancomycin 1 g in sodium | New Bag | 02/24/20 | 1 g | 250 | Central | | chloride 0.9% 250 mL IVPB 1 g, | | 15 11:07 | | mL/hr | | | Intravenous, Administer over 60 | | PM PDT | | | | | Minutes, EVERY 12 HOURS INTERVAL, | | | | | | | First dose on Fri02/22/15 at | | | | | | | 2300, Activate system and mix | | | | | | | before use., | | | | | | + +---------+ +-----+-------+---------+ +---------+ +-----+-------+---+ | New Bag | 02/24/20 | 1 g | 250 | | | | 15 11:51 | | mL/hr | | | | AM PDT | | | | +---------+ +-----+-------+---+ | New Bag | 02/23/20 | 1 g | 250 | | | | 15 10:09 | | mL/hr | | | | PM PDT | | | | +---------+ +-----+-------+---+ +---+---+ | | | +---+---+ + +---------+ + +-------+---+ | vancomycin in NS (VANCOCIN) | New Bag | 02/23/20 | 1,500 mg | 200 | | | IVPB 1,500 mg 1,500 mg, | | 15 1:14 | | mL/hr | | | Intravenous, Administer over 90 | | PM PDT | | | | | Minutes, ONCE, 02/22/15 at | | | | | | | 1100, For 1 dose, Keep in | | | | | | | refrigerator., | | | | | | + +---------+ + +-------+---+ +---+---+ | | | +---+---+ documented in this encounter
--- OUTSIDE RECORDS SUMMARY | ~2019-08-21 | XMS | Clinical Summary ---
Demographics + + + | Address | [address] | | | [place] [address] | + + + | Home Phone [...] | Author | [facility] | | | and Ankitana | + + + | Organization | [facility] | | [...] Team Providers + +------+ + | Care [employer] Name | Role | Phone | + +------+ + | Kiran Oneill DO | PCP | | + +------+ + Allergies No Known Allergies Medications + + + +---------+------+------+-------+ | Medication | Sig | Dispensed | Refills | Star | End | Statu | | | | | | t | Date | s | | | | | | Date | | | + + + +---------+------+------+-------+ | FLUoxetine | Take 20 mg by mouth | | 0 | | | Activ | | (PROZAC) 20 mg | Daily. | | | | | e | | capsule | | | | | | | + + + +---------+------+------+-------+ | QUEtiapine | Take 100 mg by mouth | | 0 | | | Activ | | (SEROQUEL) 100 mg | nightly. | | | | | e | | tablet | | | | | | | + + + +---------+------+------+-------+ | calcium-vitamin D | Take 2 tablets by | 90 | 3 | 11/2 | | Activ | | (OSCAL) 500 mg-200 | mouth 3 times daily | tablet | | 2/20 | | e | | units per tablet | (with meals). | | | 16 | | | + + + +---------+------+------+-------+ | Polysaccharide | Take 1 capsule by | 90 | 2 | 11/2 | | Activ | | Iron Complex 50 MG | mouth 3 times daily | capsule | | 2/20 | | e | | CAPS | (with meals). | | | 16 | | | + + + +---------+------+------+-------+ | ferrous sulfate | Take 1 tablet by | 60 | 0 | 09/1 | | Activ | | 325 mg tablet | mouth 2 times daily | tablet | | 0/20 | | e | | | (with breakfast & | | | 18 | | | | | dinner). | | | | | | + + + +---------+------+------+-------+ | LORazepam (ATIVAN) | Take 1 tablet by | 20 | 0 | 09/1 | | Activ | | 1 mg tablet | mouth every 6 hours | tablet | | 0/20 | | e | | | as needed for | | | 18 | | | | | Anxiety. | | | | | | + + + +---------+------+------+-------+ | pantoprazole | Take 40 mg by mouth | | 0 | | | Activ | | (PROTONIX) 20 mg | every morning | | | | | e | | tablet | (before breakfast). | | | | | | + + + +---------+------+------+-------+ | aspirin 81 mg EC | Take 81 mg by mouth | | 0 | | | Activ | | tablet | Daily. | | | | | e | + + + +---------+------+------+-------+ | atorvaSTATin | Take 1 tablet by | 90 | 3 | 12/2 | | Activ | | (LIPITOR) 80 MG | mouth nightly. | tablet | | 04/24 | | e | | tabletIndications: | | | | 18 | | | | ASHD | | | | | | | | (arteriosclerotic | | | | | | | | heart disease), | | | | | | | | Mixed hyperlipidemia | | | | | | | + + + +---------+------+------+-------+ | acetaminophen | Take 500 mg by mouth | | 0 | | | Activ | | (TYLENOL) 500 mg | every 6 hours as | | | | | e | | tablet | needed for Pain. | | | | | | + + + +---------+------+------+-------+ | lisinopril | Take 1 tablet by | 60 | 11 | 02/2 | | Activ | | (PRINIVIL, ZESTRIL) | mouth 2 times daily. | tablet | | 0/20 | | e | | 20 mg tablet | | | | 19 | | | + + + +---------+------+------+-------+ | metoprolol | Take 1.5 tablets by | 45 | 11 | 02/2 | | Activ | | succinate | mouth Daily. She now | tablet | | 0/20 | | e | | (TOPROL-XL) 100 mg | takes 150 mg daily | | | 19 | | | | ER | | | | | | | | tabletIndications: | | | | | | | | ASHD | | | | | | | | (arteriosclerotic | | | | | | | | heart disease) | | | | | | | + + + +---------+------+------+-------+ | | Inhale 1 puff into | | 0 | | | Activ | | albuterol-ipratropiu | the lungs 4 times | | | | | e | | m (COMBIVENT | daily. | | | | | | | RESPIMAT) 100-20 | | | | | | | | mcg/puff inhaler | | | | | | | + + + +---------+------+------+-------+ | alendronate | Take 70 mg by mouth | | 0 | | | Activ | | (FOSAMAX) 70 mg | every 7 days. | | | | | e | | tablet | | | | | | | + + + +---------+------+------+-------+ | gabapentin | Take 300 mg by mouth | | 0 | | | Activ | | (NEURONTIN) 300 mg | 3 times daily. | | | | | e | | capsule | | | | | | | + + + +---------+------+------+-------+ | | Take by mouth 4 | | 0 | | | Activ | | HYDROcodone-acetamin | times daily as | | | | | e | | ophen (HYCET) | needed for Pain. | | | | | | | 7.5-325 mg/15 mL | | | | | | | | liquid | | | | | | | + + + +---------+------+------+-------+ | hydrOXYzine | Take 25 mg by mouth | | 0 | | | Activ | | hydrochloride | every 6 hours as | | | | | e | | (ATARAX) 25 mg | needed for Itching. | | | | | | | tablet | | | | | | | + + + +---------+------+------+-------+ | ibuprofen | Take 600 mg by mouth | | 0 | | | Activ | | (ADVIL,MOTRIN) 600 | every 6 hours as | | | | | e | | MG tablet | needed for Pain. | | | | | | + + + +---------+------+------+-------+ | ondansetron | Take 8 mg by mouth | | 0 | | | Activ | | (ZOFRAN ODT) 8 mg | every 8 hours as | | | | | e | | disintegrating | needed for Nausea. | | | | | | | tablet | | | | | | | + + + +---------+------+------+-------+ | ciprofloxacin | Take 500 mg by mouth | | 0 | | | Activ | | (CIPRO) 500 mg | 2 times daily. | | | | | e | | tablet | | | | | | | + + + +---------+------+------+-------+ | dicyclomine | Take 20 mg by mouth | | 0 | | | Activ | | (BENTYL) 20 MG | every 6 hours. | | | | | e | | tablet | | | | | | | + + + +---------+------+------+-------+ Active Problems + + + | Problem | Noted Date | + + + | Cardiac arrest with ventricular fibrillation | 09/30/2018 | + + + + + | Overview: Echocardiogram 2D , M-mode, Doppler and color | | Doppler on 05/11/12 shows, left ventricle: severe hypokinesis of | | the posterior, apical and lateral castillo, EF estimated at 25%, | | size was normal, left atrium: size was normal, there was mild | | annular calcification, valve structure was normal, there was | | normal leaflet separation. Doppler: there transmitral velocity | | was within normal range, there was no evidence for stenosis, | | there was no CC: By George Victoria MD and Slick Hernandez. | | Echocardiogram on 01/13/14 shows, a two-dimensional transthoracic | | echocardiogram with M-mode, pulsed wave and color Doppler was | | performed, the study was diagnostic quality, normal left | | ventricular size and the global systolic function at the lower | | limit of normal LVEF 50%. Moderate-severe hypokinesis of the | | inferior wall, thickened mitral valve with mild mitral | | regurgitation, sclerotic aortic valve without stenosis or | | regurgitation, normal right ventricle size and function. By | | Mani Schneider MD.Echocardiogram on 02/23/15 shows, the left | | ventricle is grossly normal size, there is normal left | | ventricular wall thickness. Basal infero-posterior severe | | hypokinesis noted as previously seen on 01/13/2014. The visually | | estimated LV ejection fraction is 55%, the right ventricle is | | normal in size and function, the left atrium is mildly dilated, | | the mitral valve leaflets appear thickened, but open well, no | | obvious valvular vegetation detected. There is mild mitral | | regurgitation, aortic valve leaflets appear mildly thickened, but | | open normally, no obvious valvular vegetation detected. No | | hemodynamically significant valvular aortic stenosis. No aortic | | insufficiency is present, the pulmonic valve appears normal in | | structure and function, the tricuspid valve is grossly normal in | | appearance. No obvious valvular vegetation detected. There is | | mild tricuspid regurgitation, doppler findings suggest moderate | | pulmonary hypertension, estimated PA pressure is 47 | | mmHg.Echocardiogram on 08/27/16 shows normal biventricular | | chamber size and systolic function, the estimated LVEF is 55%, | | normal valvular function, no vegetation are seen, pulmonary | | pressure could not be estimated.Nuclear stress test on 06/09/18 | | shows High risk study due to ischemia with remote infarction, low | | EF and poor exercise tolerance, anterior septal ischemia, mid to | | apical. Moderate severity, cardiomyopathy, EF calculated 32% - | | may be off due to total lack of counts in the inferior and | | lateral castillo from prior MN, mild destinee infarct ischemia. LARGE | | SEVERE inferior and Lateral MN. 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 No significant mitral regurgitation. By | | Shad Schuler MD. CABG on 06/11/18 shows coronary artery bypass | | grafting x3, LITTLE-LAD, RSVG-OM2 and RSVG-PDA, endoscopicleft | | greater saphenous vein harvest. By Hemanth Webster MD. CHIQUITA on | | 06/11/18 shows, pre-procedure Summary Dx:, moderately reduced LV | | systolic function. Visually estimated LVEF 35%, normal LV size | | and shape, normal wall thickness, normal RV size with normal | | function, no obvious atrial enlargement. KEZIA normal size without | | SEC, masses, or thrombi. IAS intact, no PFO detected, mitral | | valve normal structure and function. Trace MR with central jet. | | moderate MAC, trileaflet aortic valve with normal structure and | | function, no significant aortic stenosis. No AI, tricuspid valve | | normal structure and function. Trace TR, pulmonic valve normal | | Trace IA, visible portions of ascending aorta and arch normal, | | grade 2 atherosclerotic disease of descending aorta, pulmonary | | artery normal, normal pericardium. No pericardial fluid. No | | pleural fluid. Post-procedure Summary Dx:, S/P CABG x 3 | | (GOODMAN-LAD, SVG-OM, SVG-PDA), LV function is improved to | | borderline with LVEF=50%, previously severely hypokinetic | | inferolateral segments are improved, no change in right | | ventricular function compared to preop, no change in valves | | compared to preop, no change in visible portions of aorta after | | decannulation, LV and RV function unchanged after sternal | | closure, no apparent pericardial fluid after sternal closure, no | | pleural fluid visible after sternal closure. | + + + + + | Status post coronary artery stent placement | 08/13/2018 | + + + | Beta Blockers - Daily Use | 08/13/2018 | + + + | Cardiac LV ejection fraction 30-35% | 08/13/2018 | + + + + + | Overview: ECHO 2018: LVEF 35% | + + + + + | Kidney disease, chronic, stage II (GFR 60-89 ml/min) | 08/13/2018 | + + + + + | Overview: GFR 49 - 02/22/2015 | | GFR 71 - 08/25/2016 | | GFR 67 - 06/10/2018 | | GFR 38 - 06/15/2018 | | GFR 56 - 08/13/2018 | + + + + + | Hepatitis C | 08/13/2018 | + + + | Risk factors for obstructive sleep apnea | 08/13/2018 | + + + + + | Overview: STOP BANG 5 | + + + + + | S/P CABG x 3 - 2017 | 06/12/2018 | + + + + + | Overview: 18: 1. Coronary Artery Bypass Grafting x 3 | | , LITTLE-LAD, RSVG-OM2 and RSVG-PDA2. Endoscopicleft greater | | saphenous vein harvest Last Assessment & Plan: Status post | | three-vessel bypass grafting postop day #1Hemodynamic stable and | | in sinus rhythmChest wall pain-pain controlContinue medical | | therapy | + + + + + | Chest pain syndrome | 06/07/2018 | + + + + + | Overview: Echocardiogram on 06/08/18 shows Overall EF about | | 45% with moderate hypokinesis of the basal lateral wall and | | severe hypokinesis of the mid to basal inferior wall. Mild LVH., | | normal RV, Atria, IVC, pericardium, and aorta size, moderate | | mitral annular calcification with posteriorly associated small | | mobile echodensity (on the atrial side) most consistent with | | calcification. No stenosis & trace MR, mild aortic valve | | sclerosis, Trace Tricuspid regurgitation, normal estimated peak | | PA pressure < 25 mm Hg. By Shad Schuler MD Last Assessment & | | Plan: 06/07/18 chest pain sounded esophageal. Abnormal troponin | | is not a surprise with methamphetamine and super high blood | | pressures. There is no evidence for an acute coronary syndrome, | | but she should undergo further risk stratification for her | | chronic cardiac disease. I'll get an echocardiogram tomorrow | | morning and a nuclear stress on Friday. Hopefully she can | | treadmill and if not then a walking [place] nuclear. At this | | time I don't detect major decompensated congestive heart. | | Overall, the chest and abdominal complaints with diarrhea | | suggesting gastroenteritis of some sort. | + + + + + | Non-intractable vomiting with nausea | 06/07/2018 | + + + | Polysubstance abuse | 06/07/2018 | + + + + + | Last Assessment & Plan: This contributes to the acute | | presentation especially with methamphetamine probably laced in | | her marijuana. She is counseled. | + + + + + | GERD (gastroesophageal reflux disease) | 06/07/2018 | + + + | Elevated troponin level | 06/07/2018 | + + + + + | Overview: June 07, 2018: Troponin 0.3. In the setting of | | severe hypertension and known diffuse coronary disease. No | | evidence for acute coronary syndrome at this time. Last | | Assessment & Plan: June 07, 2018: Troponin 0.3. In the | | setting of severe hypertension and known diffuse coronary | | disease. No evidence for acute coronary syndrome at this | | time.See discussion above under chest pain. Will check echo | | Friday and stress test Friday. Medical management for now. | | Till the GI issue sorts out, I'll probably not give heparin | | unless she develops what looks like acute coronary syndrome. | | Right now her troponins are stable at 0.3 and 0.3, 0.2 | + + + + + | Methamphetamine use | 06/07/2018 | + + + + + | Overview: She denies use and suggests that there may have | | been accidental use from relatives "lacing" the marijuana that | | she smokes with meth. Last Assessment & Plan: She denies use | | and suggests that there may have been accidental use from | | relatives "lacing" the marijuana that she smokes with meth. | | Counseled. | + + + + + | Multiple closed fractures of pelvis without disruption of pelvic | 09/11/2016 | | ring with routine healing | | + + + + + | Overview: Multiple pubic fractures on xray | + + + + + | Iron deficiency | 08/27/2016 | + + + | Normocytic anemia | 08/26/2016 | + + + | Positive D dimer | 08/26/2016 | + + + | Elevated C-reactive protein (CRP) | 08/26/2016 | + + + | Elevated procalcitonin | 08/26/2016 | + + + | Primary osteoarthritis involving multiple joints | 08/26/2016 | + + + | Leukocytosis, unspecified type | 08/25/2016 | + + + | Closed pelvic ring fracture, with routine healing, subsequent | 08/25/2016 | | encounter | | + + + | Cellulitis and abscess of hand, except fingers and thumb | 02/22/2015 | + + + + --------+ | Overview: Hand/abscess shows staphP:-Zosyn + Vanco Last | | Assessment & Plan: Ulcerations and superficial abscesses of the | | hands bilaterally in places where she "skin pops."Blood culture | | growing group A strep, wound cultures growing group A strep and | | staph with sensitivities pending.Continue IV Rocephin and | | vancomycin for now.PICC line placed.Wound care consulting, | | requested surgery consultation as well for abscess areas on her | | right hand. | |Wound care consulting, requested surgery consultation as well for abscess areas on her righ t hand. | + --------+ + + + | Heroin dependence | 02/22/2015 | + + + + + | Last Assessment & Plan: Active heroin abuser of about 1 g per | | day.Says that she intends to quit.Placed on COWS monitoring for | | potential of withdrawal symptoms - currently no complaints of | | pain, agitation, etc.Admit drug screen positive for | | methamphetamines, marijuana, opiates | + + + + + | Bipolar disorder | 02/22/2015 | + + + + + | Last Assessment & Plan: Stable at present. | | Continue her usual Seroquel 100 mg daily | + + + + + | Hyponatremia | 02/22/2015 | + + + + + | Last Assessment & Plan: Mild, Na 130 on admit. | | Placed on fluid restriction. | | Continue to follow. | + + + + + | GILDARDO (acute kidney injury) | 02/22/2015 | + + + + + | Last Assessment & Plan: Admit creatinine 1.13 has improved to | | 0.69 with IV fluids (baseline around 0.6). | + + + + + | Bacteremia due to Streptococcus / Sepsis | 02/22/2015 | + + + + + | Last Assessment & Plan: Continue to antibiotics as above. | | Check echocardiogram to rule out endocarditis. | | Clinically she is doing well and eager to go home. | + + + + + | Hypertension | 07/05/2013 | + + + + + | Overview: Echocardiogram on 10/28/2018 shows, the left | | ventricle is normal in size, wall thickness and low normal | | systolic function EF 50 -50%, inferobasal and inferoseptal | | hypokinesis, the right ventricle is normal in size and function, | | mild tricuspid regurgitation with mild pulmonary hypertension | | RVSP 40 mmHg, there is no pericardial effusion, by Vanesa | | Minnie MOJICA. Last Assessment & Plan: Hypotensive to | | Normotensive on beta mateus alone.Continue at current beta | | mateus dose. | + + + + + | Ischemic cardiomyopathy | 07/05/2013 | + + + + + | Overview: Large Inferior posterior MN March 2012. Non STEMI | | June 2018. EF about 45% on echo, 32% on nuclear (stunned) | | and about 37% on cath with 60% Calcified distal LM and 95% ostial | | calcified Circumflex with proximal Clot and 90% mid LAD and 100% | | proximal RCA. LVEDP 12 Last Assessment & Plan: EF PreOP | | 35%Post OP 50%On beta mateus | + + + + + | Smoker - Daily | 07/05/2013 | + + + + + | Last Assessment & Plan: Counseled regarding smoking cessation | + + + + + | ASHD (arteriosclerotic heart disease) | 07/05/2013 | + + + + + | Overview: STEMI 05/11/2012 with VF arrest, cardiac | | catheterization showed 100% occlusion of the proximal circumflex | | and 100% distal RCA in the mid PDA with left to right | | collateral. The decision was to intervene on the proximal | | circumflex lesion and the patient underwent intervention with no | | complications. EF eventually 50-55% with a large severe inferior | | wall motion abnormality and mild mitral regurgitation.Non STEMI | | June 2018. EF about 45% on echo, 32% on nuclear (stunned) | | and about 37% on cath 06/09/18 with 60% Calcified distal LM and 95% | | ostial calcified Circumflex with proximal Clot, patent mid stent | | from 2011 and 90% mid LAD, 80% distal LAD, 90% Septal-1 and 100% | | mid RCA. Left to right collaterals and minimal R to R | | collateral. LVEDP 12. 06/11/2018. CABGx3. LITTLE to LAD, SVG to | | OM2, SVG to PDA. Dr. Webster. Post OP EF 50% Last Assessment & | | Plan: Post operative day #4 status post CABGx3. LITTLE to LAD, | | SVG to OM2, SVG to PDA. Dr. Webster. Complains of pain. EF 35% | | preOP to 50% post OPBlood pressure and rhythm well controlled. | | CT in place and draining.Normal sinus rhythm 95On aspirin, | | statin, beta mateus | + + + + + | Mixed hyperlipidemia | 07/05/2013 | + + + + + | Last Assessment & Plan: On statin | + + + + + | H/O MN (myocardial infarction) | 10/06/2011 | + + + + + | Overview: Large Inferior posterior MN March 2012. | | Non STEMI June 2018. | + + Resolved Problems + + + + | Problem | Noted | Resolved | | | Date | Date | + + + + | Stress hyperglycemia | 06/12/20 | | | | 18 | 8 | + + + + | Ischemic cardiomyopathy | 08/25/20 | | | | 16 | 6 | + + + + | Leukocytosis | 12/28/19 | | | | 15 | 6 | + + + + + + | Last Assessment & Plan: Due to cellulitis and abscess of the | | forearm/wristResolved | + + + + + + | Hyponatremia | 12/28/19 | | | | 15 | 5 | + + + + + + | Last Assessment & Plan: Resolved with IVF. Continue to | | monitor | + + + + + + | Bradycardia | 12/28/19 | | | | 15 | 5 | + + + + + + | Last Assessment & Plan: Asymptomatic. Normal blood pressure. | | Likely from her carvedilol. Hold parameters written for her | | carvedilol if heart rate less than 55. | + + Encounters +--------+ + + + + | Date | Type | Specialty | Care Team | Description | +--------+ + + + + | 08/11/ | Abstract | Gastroenterology | Rosio, | | | 2018 | | | MD Blanca | | +--------+ + + + + | 07/21/ | Abstract | Cardiology | Carol, | | | 2018 | | | SALVATORE Moreno | | +--------+ + + + + | 06/15/ | Abstract | Cardiology | Carol, | | | 2018 | | | SALVATORE Moreno | | +--------+ + + + + | 05/21/ | Telephone | Cardiology | Carol | Results | | 2018 | | | SALVATORE Moreno | | +--------+ + + + + from Last 3 Months Immunizations + + + + | Name | Administration Dates | Next Due | + + + + | INFLUENZA PF 17 Y OR | 12/27/2014 | | | >,TRIVALENT | | | | RECOMBINANT | | | + + + + | INFLUENZA TRIV | 07/14/2018 | | | W/PRES(PED/ADOL/ADUL | | | | T),MULTIDOSE | | | + + + + | INFLUENZA, | 08/19/2016 | | | UNSPECIFIED | | | | FORMULATION | | | + + + + | PNEUMOCOCCAL | 10/12/2018 | | | CONJUGATE 13-VALENT | | | | (PCV13) | | | + + + + | PNEUMOCOCCAL | 06/18/2015 | | | POLYSACCHARIDE | | | | 23-VALENT (PPSV23) | | | + + + + | TDAP, (ADOL/ADULT) | 03/11/2013 | | + + + + Family History Patient is adopted + + +---------+ + | Medical History | Relation | Name | Comments | + + +---------+ + | Cancer | Brother | | | + + +---------+ + | Hypertension | Daughter | | Alive X1 daughter w/HTN | + + +---------+ + | Hypotension | Daughter | | Alive X1 other daughter w/hypotension | + + +---------+ + | Coronary artery | Other | brother | | | disease | | | | + + +---------+ + + +---------+ + + | Relation | Name | Status | Comments | + +---------+ + + | Brother | | | | + +---------+ + + | Daughter | | | | + +---------+ + + | Daughter | | | | + +---------+ + + | Father | | | | + +---------+ + + | Mother | | | | + +---------+ + + | Other | brother | Alive | | + +---------+ + + Social History + + + [...] recent travel history available. | + + Last Filed Vital Signs + + + + + | Vital Sign | Reading | Time Taken | Comments | + + + + + | Blood Pressure | 150/90 | 05/20/2019 9:52 AM | | | | | PDT | | + + + + + | Pulse | 52 | 05/20/2019 9:52 AM | | | | | PDT | | + + + + + | Temperature | 36.1 C (97 F) | 09/10/2018 3:20 PM | | | | | PST | [...] + + + + | Weight | 76 kg (167 lb 8.8 | 04/22/2019 11:18 AM | | | | oz) | PDT | | + + + + + | Height | 172.7 cm (5' 8") | 04/22/2019 11:18 AM | | | | | PDT | | + + + + + | Body Mass Index | 25.48 | 04/22/2019 11:18 AM | | | | | PDT | | + + + + + Plan of Treatment +--------+---------+ + + + | Date | Type | Specialty | Care Team | Description | +--------+---------+ + + + | 09/01/ | Office | Gastroenterology | Aba Gonsalez | | | 2018 | Visit | | MD George [address] | | | | | | [address] | | | | | | [place] [id number] | | | | | | [phone] | | | | | | | | +--------+---------+ + + + | 10/28/ | Office | Cardiology | Carol, | | | 2019 | Visit | | SALVATORE Moreno [address] | | | | | | [place], | | | | | | [place] [address] | | | | | | [phone] | | | | | | | | +--------+---------+ + + + + + + + + | Health Maintenance | Due Date | Last Done | Comments | + + + + + | Colorectal Cancer | | | | | Screening | 4 | | | | (Colonoscopy) | | | | + + + + + | Vaccine: Zoster (1 | | | | | of 2) | 4 | | | + + + + + | Breast Cancer | | | | | Screening | 9 | | | + + + + + | Adult Annual | | | | | Wellness Visit | 5 | | | + + + + + | Vaccine: Influenza | | 07/14/2018, 08/19/2016, | | | (#1) | 9 | 12/27/2014 | | + + + + + | Vaccine: | | 10/12/2018, 06/18/2015 | | | Pneumococcal 65+ (2 | 0 | | | | of 2 - PPSV23) | | | | + + + + + | Vaccine: | | 03/11/2013 | | | Dtap/Tdap/Td (2 - | 3 | | | | Td) | | | | + + + + + | Hepatitis C | Completed | 08/13/2018, 06/10/2018, | | | Screening | | 06/10/2018 | | + + + + + Implants + +--------+--------+ +--------+--------+--------+ | Implanted | Type | Area | Manufacture | Device | Shelf | Model | | | | | r | | Expira | / | | | | | | Identi | tion | Serial | | | | | | fier | Date | / Lot | + +--------+--------+ +--------+--------+--------+ | Marker Grft Sanjayy Imp Strl - | Generi | | GENESSE | | 09/16/ | AMGM-[id number] | | [id number]: Qty: 2 | c | | BIOMEDICAL | | 2020 | D / / | | on 06/11/2018 by Eleanor, | | | - JALEN | | | | | Hemanth Cooper MD at [facility] | | | | | | | | [facility] | | | | | | | + +--------+--------+ +--------+--------+--------+ | Lens Tecnis Preloaded Pcb 8.5 | Generi | Left: | MORENO | | 04/24/ | [id number] | | - [id number]: Qty: | c | Eye | MEDICAL | | 2018 | [id number] | | 1 on 08/13/2018 by Jose Manuel, | | | OPTICS - | | | /[id number] | | Seamus Chance MD at [facility] | | | [place] | | | [address] | | [facility] | | | | | | / | | CENTER | | | | | | | + +--------+--------+ +--------+--------+--------+ | Lens Tecnis Preloaded Pcb 8.5 | Generi | Right: | MORENO | | 01/31/ | [id number] | | - [id number]: Qty: | c | Eye | MEDICAL | | 2018 | [id number] | | 1 on 09/10/2018 by Jose Manuel, | | | OPTICS - | | | /[id number] | | Seamus Chance MD at [facility] | | | [place] | | | [id number] | | [facility] | | | | | | /N/A | | CENTER | | | | | | | + +--------+--------+ +--------+--------+--------+ Procedures + +--------+ + + + | Procedure Name | Priori | Date/Time | Associated Diagnosis | Comments | | | ty | | | | + +--------+ + + + | COMPREHENSIVE | Routin | 06/24/2019 | | Results for this | | METABOLIC PANEL | e | | | procedure are in the | | | | | | results section. | + +--------+ + + + | EXTERNAL LAB: BUN | Routin | 06/24/2019 | | Results for this | | | e | | | procedure are in the | | | | | | results section. | + +--------+ + + + | EXTERNAL LAB: | Routin | 06/24/2019 | | Results for this | | GLUCOSE | e | | | procedure are in the | | | | | | results section. | + +--------+ + + + | EXTERNAL LAB: | Routin | 06/24/2019 | | Results for this | | CALCIUM | e | | | procedure are in the | | | | | | results section. | + +--------+ + + + | EXTERNAL LAB: CARBON | Routin | 06/24/2019 | | Results for this | | DIOXIDE | e | | | procedure are in the | | | | | | results section. | + +--------+ + + + | EXTERNAL LAB: | Routin | 06/24/2019 | | Results for this | | CHLORIDE | e | | | procedure are in the | | | | | | results section. | + +--------+ + + + | EXTERNAL LAB: | Routin | 06/24/2019 | | Results for this | | POTASSIUM | e | | | procedure are in the | | | | | | results section. | + +--------+ + + + | EXTERNAL LAB: SODIUM | Routin | 06/24/2019 | | Results for this | | | e | | | procedure are in the | | | | | | results section. | + +--------+ + + + | EXTERNAL LAB: EGFR | Routin | 06/24/2019 | | Results for this | | | e | | | procedure are in the | | | | | | results section. | + +--------+ + + + | EXTERNAL LAB: | Routin | 06/24/2019 | | Results for this | | CREATININE | e | | | procedure are in the | | | | | | results section. | + +--------+ + + + from Last 3 Months Results External Lab: BUN (06/24/2019) + +-------+ + + + | Component | Value | Ref Range | Performed | Pathologist | | | | | At | Signature | + +-------+ + + + | BUN, | 21 | 8 - 25 | | | | External | | | | | + +-------+ + + + External Lab: Glucose (06/24/2019) + +-------+ + + + | Component | Value | Ref Range | Performed | Pathologist | | | | | At | Signature | + +-------+ + + + | Glucose, | 79 | 65 - 99 | | | | External | | | | | + +-------+ + + + External Lab: Calcium (06/24/2019) + +-------+ + + + | Component | Value | Ref Range | Performed | Pathologist | | | | | At | Signature | + +-------+ + + + | Calcium, | 9.1 | 8.5 - 10.2 | | | | External | | | | | + +-------+ + + + External Lab: Carbon Dioxide (06/24/2019) + +-------+ + + + | Component | Value | Ref Range | Performed | Pathologist | | | | | At | Signature | + +-------+ + + + | Carbon | 23 | 22 - 29 | | | | Dioxide, | | | | | | External | | | | | + +-------+ + + + External Lab: Chloride (06/24/2019) + +-------+ + + + | Component | Value | Ref Range | Performed | Pathologist | | | | | At | Signature | + +-------+ + + + | Chloride, | 105 | 97 - 107 | | | | External | | | | | + +-------+ + + + External Lab: Potassium (06/24/2019) + +-------+ + + + | Component | Value | Ref Range | Performed | Pathologist | | | | | At | Signature | + +-------+ + + + | Potassium, | 4.6 | 3.5 - 5.3 | | | | External | | | | | + +-------+ + + + External Lab: Sodium (06/24/2019) + +-------+ + + + | Component | Value | Ref Range | Performed | Pathologist | | | | | At | Signature | + +-------+ + + + | Sodium, | 137 | 135 - 145 | | | | External | | | | | + +-------+ + + + External Lab: eGFR (06/24/2019) + +-------+ + + + | Component | Value | Ref Range | Performed | Pathologist | | | | | At | Signature | + +-------+ + + + | eGFR, | >60 | | | | | External | | | | | + +-------+ + + + + + | Specimen | + + | Blood | + + External Lab: Creatinine (06/24/2019) + +-------+ + + + | Component | Value | Ref Range | Performed | Pathologist | | | | | At | Signature | + +-------+ + + + | Creatinine, | 0.90 | 0.7 - 1.3 | | | | External | | | | | + +-------+ + + + + + | Specimen | + + | Blood | + + Comprehensive Metabolic Panel (06/24/2019) + +-------+ + + + | Component | Value | Ref Range | Performed | Pathologist | | | | | At | Signature | + +-------+ + + + | Anion Gap | 14 | 14 - 22 mmol/L | | | + +-------+ + + + | Bun/Creatin | 23.5 | 11.0 - 35.0 | | | | ine | | | | | + +-------+ + + + + + | Specimen | + + | Blood | + + from Last 3 Months Insurance + +--------+ +--------+ +---------+--------+ | Payer | Benefi | Subscriber | Effect | Phone | Address | Type | | | t Plan | ID | bolivar | | | | | | / | | Dates | | | | | | Group | | | | | | + +--------+ +--------+ +---------+--------+ | MEDICARE | MEDICA | [id number] | | [phone] | | Medica | | | RE | | 012-Pr | 5 | | re | | | PART A | | esent | | | | | | AND B | | | | | | + +--------+ +--------+ +---------+--------+ | [employer] | MODA | [id number] | 01/05/20 | [phone] | | Medica | | MEDICAID HMO | HEALTH | | 19-Pre | 1 | | id | | | MDCD | | sent | | | | | | HMO OR | | | | | | + +--------+ +--------+ +---------+--------+ | DEPARTMENT OF | NAPH[place] | [id number] | 06/06/20 | | | Indemn | | CORRECTIONS | RE | | 18-Pre | | | ity | | | | | sent | | | | + +--------+ +--------+ +---------+--------+ + +--------+ +--------+ + + | Guarantor Name | Accoun | Relation to | Date | Phone | Billing Address | | | t Type | Patient | of | | | | | | | | | | + +--------+ +--------+ + + | Smitha Pichardo | Person | Self [birth year] | [address] | | | al/Fam | | 1955 | [phone] | [place] [address] | | | daljit | | | 6 (Home) | | + +--------+ +--------+ + + | DELIA SALEH | 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[birth year] | | [address] | | | ate | | 1902 | [phone] | [place] [address] | | | | | | 9 (Home) | | + +--------+ +--------+ + + Advance Directives + + + + + | Type | Date Recorded | Patient | 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[employer] | | + + + + + | Power of | | | | | Readiness Paraprofessional | | | | + + + + + | Advance | 09/08/2018 11:03 | | | | Directive | AM | | | + + + + + + + + + + | Code Status | Date | Date | Comments | | | Activated | Inactivated | | + + + + + | Full Code | 09/10/2018 | 09/10/2018 | | | | 3:29 PM | 5:59 PM | | + + + + + + + + +---+ | | | | | + + + +---+ | Full Code | 08/13/2018 | 08/13/2018 | | | | 12:22 PM | 4:02 PM | | + + + +---+ + + + +---+ | | | | | + + + +---+ | Full Code | 06/11/2018 | 06/15/2018 | | | | 4:36 PM | 9:49 PM | | + + + +---+ + + + +---+ | | | | | + + + +---+ | Full Code | 06/07/2018 | 06/11/2018 | | | | 2:56 PM | 4:36 PM | | + + + +---+ + + + +---+ | | | | | + + + +---+ | Full Code | 08/25/2016 | 08/28/2016 | | | | 8:50 PM | 2:20 PM | | + + + +---+
--- OUTSIDE RECORDS SUMMARY | ~2019-08-21 | XMS | Encounter Summary ---
Demographics + + + | Address | [address] | | | [place] [address] | + + + | Home Phone | | + + + | Preferred Language | Unknown | + + + | Marital Status | | + + + | Yazdanism Affiliation | 1041 | + + + | Race | Unknown | + + + | Ethnic Group | Unknown | + + + Author + + + | Author | and [facility] | | | and Ankitana | + + + | Organization | and [facility] | [...] Team Providers + +------+ + | Care Chemistry Specialist Name | Role | Phone | + +------+ + | Luis Alfredo [facility] | PCP | | + +------+ + Reason for Visit +--------+ + | Reason | Comments | +--------+ + | Fall | | +--------+ + Encounter Details +--------+ + + + + | Date | Type | Department | Care Team | Description | +--------+ + + + + | 09/27/ | Emergency | [facility] | Maura Fletcher MD | Contusion, hip | | 2012 | | [facility] | [address] | (Primary Dx) | | | | CENTER [address] [place], [place] | | | | | [address] | [address] | | | | | [place], [place] | | | | | | [address] | | | | | | [phone] | | | +--------+ + + + + Social History + +-------+ +--------+------+ | Tobacco Use | Types | Packs/Day | Years | Date | | | | | Used | | + +-------+ +--------+------+ | Current Every Day | | | | | | Smoker | | | | | + +-------+ +--------+------+ + + +---------+ + | Alcohol Use | Drinks/Week | oz/Week | Comments | + + +---------+ + | No | | | | + + +---------+ + + + [...] + + + | Blood Pressure | 144/77 | 09/27/2013 6:23 PM | | | | | PST | | + + + + + | Pulse | 80 | 09/27/2013 6:23 PM | | | | | PST | | + + + + + | Temperature | 37.1 C (98.7 F) | 09/27/2013 6:23 PM | | | | | PST | | + + + + + | Respiratory Rate | 16 | 09/27/2013 6:23 PM | | | | | PST | | + + + + + | Oxygen Saturation | 99% | 09/27/2013 6:23 PM | | | | | PST | | + + + + + | Inhaled Oxygen | - | - | | | Concentration | | | | + + + + + | Weight | 68 kg (150 lb) | 09/27/2013 6:23 PM | | | | | PST | | + + + + + | Height | 172.7 cm (5' 8") | 09/27/2013 6:23 PM | | | | | PST | | + + + + + | Body Mass Index | 22.81 | 09/27/2013 6:23 PM | | | | | PST | | + + + + + documented in this encounter Discharge Instructions Instructions Roe Spangler PA-C - 09/27/2013Please follow up with your primary care physi jessi for further workup and treatment as needed. Return to the ER for new or worsening sympt oms. AttachmentsThe following attachments cannot be sent through Care Everywhere.HIP CONTUSION ( TURKISH)documented in this encounter Medications at Time of [...] + + + +---------+ + + | clopidogrel | Take 75 mg by mouth | | 0 | | | | (PLAVIX) 75 mg | Daily. | | | | 5 | | tablet | | | | | | + + + +---------+ + + | | Take 1-2 tablets by | 10 | 0 | 09/27/20 | | | HYDROcodone-acetamin | mouth every 4 hours | tablet | | 13 | 4 | | ophen (NORCO) | as needed for Pain | | | | | | 7.5-325 mg per | for 10 days. | | | | | | tablet [...] +---------+ + + | lisinopril | Take 10 mg by mouth | | 0 | | | | (PRINIVIL, ZESTRIL) | Daily. | | | | 5 | | 10 mg tablet | | | | | | + + + +---------+ + + | nitroglycerin | Place 0.4 mg under | | 0 | | | | (NITROSTAT) 0.4 mg | the tongue every 5 | | | | 4 | | SL tablet | minutes as needed. | | | | | + + + +---------+ + + | UNABLE TO FIND | Med Name: Carbedalol | | 0 | | | | | Per pt. | | | | 4 | + + + +---------+ + + | UNKNOWN TO PATIENT | Chlostesterol med | | 0 | | | | | | | | | 4 | + + + +---------+ + + [...] [place] | | | | | | [place] [address] | | | | | | [phone] | | | | | | | | +--------+---------+ + + + | 10/28/ | Office | Cardiology | Carol, | | | 2019 | Visit | | SALVATORE Moreno [address] | | | | | | [place], | | | | | | [place] [address] | | | | | | [phone] | | | | | | | | +--------+---------+ + + + documented as of this encounter Procedures + +--------+ + + + | Procedure Name | Priori | Date/Time | Associated Diagnosis | Comments | | | ty | | | | + +--------+ + + + | XR HIP LEFT 2 + VW | STAT | 09/27/2013 | | Results for this | | | | 7:52 PM | | procedure are in the | | | | PST | | results section. | + +--------+ + + + | XR PELVIS 1 OR 2 VW | STAT | 09/27/2013 | | Results for this | | | | 7:51 PM | | procedure are in the | | | | PST | | results section. | + +--------+ + + + documented in this encounter Results XR Hip Left 2 + Vw (09/27/2013 7:52 PM PST) + + | Specimen | + + | | + + + + + | Narrative | Performed At | + + + | AP PELVIS AND TWO VIEWS OF THE LEFT HIP, 09/27/2013 CLINICAL | [place] [facility] [place] | | INFORMATION: Worsening left hip pain after a fall on the ice last | | | night. COMPARISON: 03/24/2013 FINDINGS: An AP pelvis and two | | | views of the left hip were obtained. There are moderately severe | | | degenerative changes bilaterally, right hip greater than left. No | | | acute fracture or dislocation is identified in the left hip. | | | Vascular calcification is noted. The visualized bowel gas pattern is | | | unremarkable. IMPRESSION: No acute fracture or dislocation, | | | left hip, pelvis. Moderately severe degenerative changes bilaterally | | | right greater than left. | | + + + + + | Procedure Note | + + | Tim, Rad Results In - 09/27/2013 8:03 PM PST | | AP PELVIS AND TWO VIEWS OF THE LEFT HIP, 09/27/2013 | | | | CLINICAL INFORMATION: | | Worsening left hip pain after a fall on the ice last night. | | | | COMPARISON: | | 03/24/2013 | | | | FINDINGS: | | An AP pelvis and two views of the left hip were obtained. There are | | moderately severe degenerative changes bilaterally, right hip greater | | than left. No acute fracture or dislocation is identified in the left | | hip. | | | | Vascular calcification is noted. The visualized bowel gas pattern is | | unremarkable. | | | | IMPRESSION: | | No acute fracture or dislocation, left hip, pelvis. | | Moderately severe degenerative changes bilaterally right greater than | | left. | | | + + + + + + + | Performing | Address | City/State/Zipcode | Phone Number | | Organization | | | | + + + + + | [facility] | [facility], [address] | [place] [address] | [phone] | | | [place] | | | + + + + + XR Pelvis 1 or 2 Vw (09/27/2013 7:51 PM PST) + + | Specimen | + + | | + + + + + | Narrative | Performed At | + + + | AP PELVIS AND TWO VIEWS OF THE LEFT HIP, 09/27/2013 CLINICAL | [facility] | | INFORMATION: Worsening left hip pain after a fall on the ice last | | | night. COMPARISON: 03/24/2013 FINDINGS: An AP pelvis and two | | | views of the left hip were obtained. There are moderately severe | | | degenerative changes bilaterally, right hip greater than left. No | | | acute fracture or dislocation is identified in the left hip. | | | Vascular calcification is noted. The visualized bowel gas pattern is | | | unremarkable. IMPRESSION: No acute fracture or dislocation, | | | left hip, pelvis. Moderately severe degenerative changes bilaterally | | | right greater than left. | | + + + + + | Procedure Note | + + | Tim, Rad Results In - 09/27/2013 8:03 PM PST | | AP PELVIS AND TWO VIEWS OF THE LEFT HIP, 09/27/2013 | | | | CLINICAL INFORMATION: | | Worsening left hip pain after a fall on the ice last night. | | | | COMPARISON: | | 03/24/2013 | | | | FINDINGS: | | An AP pelvis and two views of the left hip were obtained. There are | | moderately severe degenerative changes bilaterally, right hip greater | | than left. No acute fracture or dislocation is identified in the left | | hip. | | | | Vascular calcification is noted. The visualized bowel gas pattern is | | unremarkable. | | | | IMPRESSION: | | No acute fracture or dislocation, left hip, pelvis. | | Moderately severe degenerative changes bilaterally right greater than | | left. | | | + + + + + + + | Performing | Address | City/State/Zipcode | Phone Number | | Organization | | | | + + + + + | [facility] | [facility], [address] | [place] [address] | [phone] | | | [place] | | | + + + + + documented in this encounter Visit Diagnoses + + | Diagnosis | + + | Contusion, hip - Primary Contusion of hip | + + documented in this encounter Administered Medications + +--------+ +-------+------+ + | Medication Order | MAR | Action | Dose | Rate | Site | | | Action | Date | | | | + +--------+ +-------+------+ + | ketorolac (TORADOL) injection | Given | 09/27/20 | 60 mg | | Ventrogl | | 60 mg 60 mg, Intramuscular, | | 13 7:47 | | | paoloeal-Le | | ONCE, 09/27/13 at 2000, For 1 | | PM PST | | | ft | | dose | | | | | | + +--------+ +-------+------+ + +---+---+ | | | +---+---+ documented in this encounter
--- OUTSIDE RECORDS SUMMARY | ~2019-08-21 | XMS | Encounter Summary ---
Demographics + + + | Address | [address] | | | [place] [address] | + + + | Home Phone [...] | Author | [facility] | | | and Ankitana | + + + | Organization | [facility] | | | and Ankitana | + [...] Team Providers + +------+ + | Care Administrative Project Coordinator Name | Role | Phone | + +------+ + | Yolanda Lee | PCP | | + +------+ + Encounter Details +--------+ + + + + | Date | Type | Department | Care Team | Description | +--------+ + + + + | 03/06/ | Hospital | [facility] | Jesse Siddiqi MD | Cellulitis and | | 2015 - | Encounter | [facility] | [address], | abscess of hand, | | | | INFUSION [address] floor [place], | except fingers and | | 03/08/ | | [address] [place], [place] | [place] [address] | thumb; Bacteremia | | 2015 | | [address] | [phone] | due to Streptococcus | | | | [phone] | | / Sepsis | +--------+ + [...] | | | | | [place] [address] | | | | | | [phone] | | | | | | | | +--------+---------+ + + + | 10/28/ | Office | Cardiology | Carol, | | | 2019 | Visit | | SALVATORE Moreno [address] | | | | | | [place], | | | | | | [place] [address] | | | | | | [phone] | | | | | | | [...]
--- OUTSIDE RECORDS SUMMARY | ~2019-08-21 | XMS | Encounter Summary ---
Demographics + + + | Address | [address] | | | [place] [address] | + + + | Home Phone | | + + + | Preferred Language | Unknown | + + + | Marital Status | | + + + | Presybeterian Affiliation | 1041 | + + + | Race | Unknown | + + + | Ethnic Group | Unknown | + + + Author + + + | Author | [facility] | | | and Ankitana | + + + | Organization | [facility] | | | and Ankitana [...] Team Providers + +------+ + | Care Indirect Sales Representative Name | Role | Phone | + +------+ + | Yolanda Lee | PCP | | + +------+ + Encounter Details +--------+ + + + + | Date | Type | Department | Care Team | Description | +--------+ + + + + | 03/03/ | Hospital | [facility] | Jesse Siddiqi MD | Cellulitis and | | 2015 - | Encounter | [facility] | [address], | abscess of hand, | | | | [address]FUSION [address] | [address] floor [place], | except fingers and | | 03/05/ | | [address] [place], [place] | [place] [address] | thumb; Bacteremia | | 2015 | | [address] | [phone] | due to Streptococcus | | | | [phone] | | / Sepsis | +--------+ + [...] | | | | | [place] [address] | | | | | | [phone] | | | | | | | | +--------+---------+ + + + | 10/28/ | Office | Cardiology | Carol, | | | 2019 | Visit | | SALVATORE Moreno [address] | | | | | | [place], | | | | | | [place] [address] | | | | | | [phone] | | | | | | | [...]
--- OUTSIDE RECORDS SUMMARY | ~2019-08-21 | XMS | Encounter Summary ---
Demographics + + + | Address | [address] | | | [place] [address] | + + + | Home Phone | | + + + | Preferred Language | Unknown | + + + | Marital Status | | + + + | Gnosticism Affiliation | 1041 | + + + | Race | Unknown | + + + | Ethnic Group | Unknown | + + + Author + + + | Author | [facility] | | | and Ankitana | + + + | Organization | [facility] | | | and Ankitana [...] Team Providers + +------+ + | Care Route Supervisor Name | Role | Phone | + +------+ + | Yolanda Lee | PCP | | + +------+ + Encounter Details +--------+ + + + + | Date | Type | Department | Care Team | Description | +--------+ + + + + | 02/28/ | Hospital | [facility] | Jesse Siddiqi MD | Cellulitis and | | 2015 | Encounter | [facility] | [address], | abscess of hand, | | | | INFUSION [address] | [address] floor [place], | except fingers and | | | | [address] [place], [place] | [place] [address] | thumb; Bacteremia | | | | [address] | [phone] | due to Streptococcus | | | | [phone] | | / Sepsis | +--------+ + [...] documented as of this encounter Progress Notes Amy Navarro RN - 02/28/2015 5:03 PM PDTHere for [...] | | | | | [place] [address] | | | | | | [phone] | | | | | | | | +--------+---------+ + + + | 10/28/ | Office | Cardiology | Carol, | | | 2019 | Visit | | SALVATORE Moreno [address] | | | | | | [place] | | | | | | [place] [address] | | | | | | [phone] | | | | | | | [...] | | | | | | | 02/28/15 at 1720, For 14 days, | | [...]
--- OUTSIDE RECORDS SUMMARY | ~2019-08-21 | XMS | Encounter Summary ---
Demographics + + + | Address | [address] | | | [place] [address] | + + + | Home Phone | | + + + | Preferred Language | Unknown | + + + | Marital Status | | + + + | Mandaeism Affiliation | 1041 | + + + | Race | Unknown | + + + | Ethnic Group | Unknown | + + + Author + + + | Author | [facility] | | | and Ankitana | + + + | Organization | [facility] | | | and Ankitana [...] Team Providers + +------+ + | Care Slagger Name | Role | Phone | + +------+ + PCP | Unavailable | + +------+ + Encounter Details +--------+ + + + + | Date | Type | Department | Care Team | Description | +--------+ + + + + | 04/18/ | Hospital | [facility] | Conversion | | | 2006 | Encounter | [facility] | Transaction, | | | | | CENTER [address] | Provider Unknown | | | | | [address] | [phone] | | | | | [place] | | | | | | [address] | | | | | | [phone] | | | +--------+ + + + [...] Gastroenterology | Aba Gonsalez | | | 2019 | Visit | | MD George [address] | | | | | | [address] [address] | | | | | | [place] [address] | | | | | | [phone] | | | | | | | | +--------+---------+ + + + | 10/28/ | Office | Cardiology | Carol, | | | 2020 | Visit | | SALVATORE Moreno [address] | | | | | | [place], | | | | | | [place] [address] | | | | | | [phone] | | | | | | | | +--------+---------+ + + + documented as of this encounter Visit Diagnoses Not on filedocumented in this encounter"
--- OUTSIDE RECORDS SUMMARY | ~2019-08-21 | XMS | Encounter Summary ---
Demographics + + + | Address | [address] | | | [place] [address] | + + + | Home Phone | | + + + | Preferred Language | Unknown | + + + | Marital Status | | + + + | Amish Affiliation | 1041 | + + + | Race | Unknown | + + + | Ethnic Group | Unknown | + + + Author + + + | Author | [facility] | | | and Ankitana | + + + | Organization | [facility] | | | and [...] Team Providers + +------+ + | Care Shirt Presser Name | Role | Phone | + [...] + + | 11/25/ | Office | [facility] | Carol, | Hypertension, | | 2019 | Visit | CARDIOLOGY [address] | SALVATORE Moreno [address] | unspecified type | | | | [place], | [place], | (Primary Dx); | | | | [place] [address] | [place] [address] | Ischemic | | | | [phone] | [phone] | cardiomyopathy; | | | | | [...] encounter Patient Instructions Patient Instructions Dayana Chan, Tongue And Quarter Stitcher - 11/25/2018 10:45 AM PST 1. Start taking lisinopril 20 mg twice daily by mouth to help with your blood pressure . 2. You will check your blood pressure and pulse twice daily for two weeks and return the lo g to our office. 3. You will need to go to get your labs (BMP) drawn at [facility] . 4. Please follow up in 2 [...] sodium in extra because of eating out american food for the last weeks Her energy [...] chronic, stage II (GFR 60-89 ml/min) H/O ND (myocardial infarction) Hepatitis C Risk factors for [...] Abnormal ECG Confirmed by MARIANGEL WALTON MD ([id number]) on 10/01/2018 12:13:49 PM LAB RESULTS reviewed during visit today primarily from [facility]: LIPID No results found for: [...] arrest post unknown stenting in 2011 at [facility] in [place] B. Echocardiogram 2D , M-mode, Doppler and [...] the inferior and lateral castillo from prior ND, mild destinee infarct ischemia. LARGE SEVERE inferior and Lateral ND. By Shad Schuler MD G. Left heart [...] unction. Trace TR, pulmonic valve normal Trace WI, visible portions of ascending aorta and a [...] II- Symptoms with moderate exertion of the [place] [employer] functional class. 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 Discussed the results of the echocardiogram. She has a appointment with [facility] in a few weeks. She is [...] this chart may have been created with [employer] voice recognition software. Occasi onal wrong-word or [...] | | | | | | [place] [address] | | | | | | [phone] | | | | | | | | +--------+---------+ + + + | 10/28/ | Office | Cardiology | Carol, | | | 2019 | Visit | | SALVATORE Moreno [address] | | | | | | [place], | | | | | | [place] [address] | | | | | | [phone] | | | | | | | [...] of unspecified type of | | vessel, kletsel dehe wintun or graft | + + documented in this encounter
--- OUTSIDE RECORDS SUMMARY | ~2019-08-21 | XMS | Encounter Summary ---
Demographics + + + | Address | [address] | | | [place] [address] | + + + | Home Phone | | + + + | Preferred Language | Unknown | + + + | Marital Status | | + + + | Jain Affiliation | 1041 | + + + | Race | Unknown | + + + | Ethnic Group | Unknown | + + + Author + + + | Author | [facility] | | | and Ankitana | + + + | Organization | [facility] | | | and Ankitana [...] Team Providers + +------+ + | Care Gift Consultant Name | Role | Phone | + +------+ + PCP | Unavailable | + +------+ + Encounter Details +--------+ + + + + | Date | Type | Department | Care Team | Description | +--------+ + + + + | 05/27/ | Hospital | [facility] | Mani Schneider MD | | | 2012 - | Encounter | [facility] | [address] | | | | [address] [facility] [address] | | | 09/21/ | | HOSP[facility] [address] | [place], [place] | | | 2012 | | [place] | [address] | | | | | [address] | | | | | | [phone] | | | +--------+ + + + [...] | 09/01/ | Office | Gastroenterology | Wallace, Aba | | | 2018 | Visit | | MD George [address] | | | | | | [address] | | | | | | [place] [address] | | | | | | [phone] | | | | | | | | +--------+---------+ + + + | 10/28/ | Office | Cardiology | Carol, | | | 2019 | Visit | | SALVATORE Moreno [address] | | | | | | [place], | | | | | | [place] [address] | | | | | | [phone] | | | | | | | | +--------+---------+ + + + documented as of this encounter Visit Diagnoses Not on filedocumented in this encounter"
--- OUTSIDE RECORDS SUMMARY | ~2019-08-21 | XMS | Encounter Summary ---
Demographics + + + | Address | [address] | | | [place] [address] | + + + | Home Phone | | + + + | Preferred Language | Unknown | + + + | Marital Status | | + + + | Spiritism Affiliation | 1041 | + + + | Race | Unknown | + + + | Ethnic Group | Unknown | + + + Author + + + | Author | [facility] | | | and Ankitana | + + + | Organization | [facility] | | | and Ankitana [...] Team Providers + +------+ + | Care Patient Relations Representative Name | Role | Phone | + +------+ + | Kiran Oneill DO | PCP | | + +------+ + Reason for Visit + + + | Reason | Comments | + + + | Follow-up | | + + + | Cardiomyopathy | | + + + | Hyperlipidemia | | + + + Encounter Details +--------+---------+ + + + | Date | Type | Department | Care Team | Description | +--------+---------+ + + + | 04/22/ | Office | [facility] | Carol, | Hypertension, | | 2019 | Visit | CARDIOLOGY [address] | SALVATORE Moreno [address] | unspecified type | | | | [place], | [place], | (Primary Dx); | | | | [place] [address] | [place] [address] | Ischemic | | | | [phone] | [phone] | cardiomyopathy; ASHD | | | | | | (arteriosclerotic | | | | | | heart disease); | | | | | | Chest pain syndrome; | | | | | | Cardiac LV ejection | | | | | | fraction 30-35%; | | | | | | Cardiac arrest with | | | | | | ventricular | | | | | | fibrillation (HCC); | | | | | | Mixed hyperlipidemia | +--------+---------+ + + + Social History [...] + + + | Blood Pressure | 124/72 | 04/22/2019 11:18 AM | | | | | PDT | | + + + + + | Pulse | 62 | 04/22/2019 11:18 AM | | | | | PDT | | + + + + + | Temperature | - | - | | + + + + + | Respiratory Rate | 16 | 04/22/2019 11:18 AM | | | [...] of this encounter Patient Instructions Patient Instructions Alla Manjarrez, Daycare Manager - 04/22/2019 11:30 AM PDT1. The cur rent medical regimen is effective; continue present plan and medications. 2. She will follow up in 6 months, or sooner with concerns. documented in this encounter Progress Notes Tiffanie Medina ARNP - 04/22/2019 11:30 AM PDTFormatting of this note might be differen t from the original. PATIENT NAME: Smitha Pichardo : 1955: AGE: 63 y.o. PRIMARY CARE: Kiran Oneill DO OUTPATIENT FOLLOW UP VISIT Date of Service: 04/22/2019 HISTORY OF PRESENT ILLNESS: Smitha Pichardo is a 63 y.o. female with a history of coronary artery disease with isch emia cardiomyopathy, hypertension, hyperlipidemia, tobacco use and stage III chronic kidney disease. She is being seen today for follow up. She was last seen 11/25/18 at which time she will increase Lisinopril 20 mg twice a day by jar[address] way Check BMP in 2 weeks. Check blood pressure and pulse twice daily for two weeks and return t he log to our office. She is again counseled on importance of daily weight monitoring, sign s and symptoms of worsening congestive heart failure to notify our office with, and sodium r estricted diet. Weight log and blood pressure log with written education is given to the pat ient. She will follow up in 3 months for office visit, or sooner with concerns. In the mean time she has been encouraged to go to cardiac rehabilitation and watch the sodium intake. Since that time, she has a sleep study done on 03/11/[address] Agarwal. She has had a good energy level. She tries to stay active. She has increased her walking t o everyday and has noticed it to be easier with the increase of walking and less shortness o f breath. She has not had any chest pain or discomfort at rest or with exertion. She has n ot noticed shortness of breath. Her shortness of breath has improved since last office visit . She has not had any lightheadedness or dizziness. She has not noticed palpitations. She has not had leg swelling. She is able to sleep laying down at night without any symptoms o f shortness of breath. She does not use a CPAP machine but has an appointment coming up in May She has been having issues with diverticulitis and has been loosing weight. Her BP i s better controlled. MEDICAL, SURGICAL, AND PERSONAL HISTORY Past Medical, [...] Methamphetamine use S/P CABG x 3 - 2018 Status post coronary artery stent placement Beta Blockers - Daily Use Cardiac LV ejection fraction 30-35% Kidney disease, chronic, stage II (GFR 60-89 ml/min) H/O LA (myocardial infarction) Hepatitis C Risk factors for obstructive sleep apnea Cardiac arrest with ventricular fibrillation CURRENT MEDICATIONS Current Outpatient Medications Medication Sig Dispense Refill acetaminophen (TYLENOL) 500 [...] Known Allergies ROS Review of Systems Constitutional: Negative. Negative for malaise/fatigue. Respiratory: Negative. Negative for shortness of breath. Cardiovascular: Negative. Negative for chest pain, palpitations and leg swelling. Neurological: Negative. Negative for dizziness and weakness. Lightheadedness - No Endo/Heme/Allergies: Negative. Does not bruise/bleed easily. OBJECTIVE: PHYSICAL EXAM BP 124/72 | Pulse 62 | Resp 16 | Ht 1.727 m (5' 8") | Wt 76 kg (167 lb 8.8 oz) | BMI 2 5.48 kg/m Physical Exam Constitutional: She appears well-developed and well-nourished. No distress. Elderly adult female here with her daughter Neck: Normal carotid pulses, no hepatojugular reflux and no JVD (No JVD) present. Carotid b ruit is not present (Clear). Cardiovascular: Normal rate, regular rhythm, S1 normal, S2 normal, normal heart sounds, int act distal pulses and normal pulses. PMI is not displaced (No JVD). Exam reveals no gallop, no S3, no S4 and no friction rub. No murmur heard. Pulses: Carotid pulses are 2+ on the right side, and 2+ on the left side. Radial pulses are 2+ on the right side, and 2+ on the left side. Posterior tibial pulses are 2+ on the right side, [...] is no tend erness. Musculoskeletal: She exhibits no edema (No leg swelling). Neurological: She is alert. Gait (utilizing a [...] Abnormal ECG Confirmed by MARIANGEL WALTON MD ([id number]) on 10/01/2018 12:13:49 PM LAB RESULTS reviewed during visit today primarily from [facility]: LIPID No results found for: CHOL, TRIG, [...] 10/14/2018 PLT 350 08/13/2018 PLTEX 318 10/14/2018 Lab Results Component Value Date BNP 168 (H) 10/27/2016 BNP NULL 05/16/2012 RESULTS- I reviewed reports from [facility]: Above data and testing is reviewed this visit; testing below is historical data unless othe rwise specified. ASSESSMENT: 1. Coronary artery disease with ischemic cardiomyopathy A. History cardiac arrest post unknown stenting in 2011 at [facility] in [place] B. Echocardiogram 2D , M-mode, Doppler and color Doppler on 05/11/12 shows, left ventricle: severe hypokinesis of the posterior, apical and lateral castillo, EF es timated at 25%, size was normal, left atrium: size was normal, there was mild annular calc ification, valve structure was normal, there was normal leaflet separation. Doppler: there t ransmitral velocity was within normal range, there was no evidence for stenosis, there was n o CC: By George Victoria MD and Slick Hernandez Echocardiogram on 01/13/14 shows, a two-dimensional transthoracic echocardiogram with M-mode, pulsed wave and color Doppler was performed, the study was diag nostic quality, normal left ventricular size and the global systolic function at the lower l imit of normal LVEF 50%. Moderate-severe hypokinesis of the inferior wall, thickened mitral valve with mild mitral regurgitation, sclerotic aortic valve without stenosis or regurgitati on, normal right ventricle size and function. By Mani Schneider MD. D. Echocardiogram on 02/23/15 shows, the left ventricle is grossly n ormal size, there is normal left ventricular wall thickness. Basal infero-posterior severe h ypokinesis noted as previously seen on 01/13/2014. The visually estimated LV ejection fractio n is 55%, the right ventricle is normal in size and function, the left atrium is mildly dila darlene, the mitral valve leaflets appear thickened, but open well, no obvious valvular vegetati on detected. There is mild mitral regurgitation, aortic valve leaflets appear mildly thicken ed, but open normally, no obvious valvular vegetation detected. No hemodynamically significa nt valvular aortic stenosis. No aortic insufficiency is present, the pulmonic valve appears normal in structure and function, the tricuspid valve is grossly normal in appearance. No ob vious valvular vegetation detected. There is mild tricuspid regurgitation, doppler findings suggest moderate pulmonary hypertension, estimated PA pressure is 47 mmHg. E. Echocardiogram on 08/27/16 shows normal biventricular chamber si ze and systolic function, the estimated LVEF is 55%, normal valvular function, no vegetation are seen, pulmonary pressure could not be estimated. F. Nuclear stress test on 06/09/18 shows High risk study due to ische toño with remote infarction, low EF and poor exercise tolerance, anterior septal ischemia, mi d to apical. Moderate severity, cardiomyopathy, EF calculated 32% - may be off due to total lack of counts in the inferior and lateral castillo from prior LA, mild destinee infarct ischemia. LARGE SEVERE inferior and Lateral LA. By Shad Schuler MD G. Left heart cath on 06/09/18 shows, severely calcified coronaries w ith severe three-vessel CAD including 60% distal left main, 90% ostial circumflex, 99% proxi mal circumflex, obtuse marginal 4 and 5 disease, ostial and proximal 40% LAD, 95% ostial sep eleni applications packager, 70% mid and distal LAD, 100% mid RCA with left to right collaterals to a med ium PDA and posterolateral, Ischemic cardiomyopathy with a moderate very severe mid to basal inferior wall motion abnormalities, anterolateral wall motion abnormality, hyperkinetic ant erior wall and apex, overall EF about 37%, normal LV end-diastolic pressure, 10-12 mmHg, sev ere mitral annular calcification. No significant mitral regurgitation. By Shad Schuler MD. H. CABG on 06/11/18 shows coronary artery bypass grafting x3, GOODMAN-LA D, RSVG-OM2 and RSVG-PDA, endoscopicleft greater saphenous vein harvest. By Hemanth corona MD. I. CHIQUITA on 06/11/18 shows, pre-procedure Summary Dx:, moderately red uced LV systolic function. Visually estimated LVEF 35%, normal LV size and shape, normal wal l thickness, normal RV size with normal function, no obvious atrial enlargement. KEZIA normal size without SEC, masses, or thrombi. IAS intact, no PFO detected, mitral valve normal struc ture and function. Trace MR with central jet. moderate MAC, trileaflet aortic valve with nor mal structure and function, no significant aortic stenosis. No AI, tricuspid valve normal st ructure and function. Trace TR, pulmonic valve normal Trace OR, visible portions of ascendin g aorta and arch normal, grade 2 atherosclerotic disease of descending aorta, pulmonary sienna ry normal, normal pericardium. No pericardial fluid. No pleural fluid. Post-procedure, LV function is improved to borderline with LVEF=50%, previously severely hypokinetic inferolate ral segments are improved, no change in right ventricular function compared to preop, no moi nge in valves compared to preop, no change in visible portions of aorta after decannulation, LV and RV function unchanged after sternal closure. J. Echocardiogram on 10/28/2018 shows, the left ventricle is normal in size, wall thickness and low normal systolic function EF 50 -50%, inferobasal and infero septal hypokinesis, the right ventricle is normal in size and function, mild tricuspid regur gitation with mild pulmonary hypertension RVSP 40 mmHg, there is no pericardial effusion, by Vanesa Sharma. Today, 04/22/2019, she is asymptomatic.She has no angina or dyspnea with exer tion or at rest. She has increase her walking and feels that it has improved her symptoms of shortness of breath. She is on a medical regimen with aspirin, PHOEBE-I, beta-mateus and stat in. There are no signs or symptoms of overt congestive heart failure, and her physical exam shows no significant fluid retention. She is in class I- No symptoms; no limitations of act ivities of the [place] [employer] functional class. Heart failure stage A-pre-heart failure. She has increased her exercise to walking daily. Patient is doing "well" on a cardi ac standpoint. 2. Hypertension A.Today, 04/22/2019, her blood pressure is well controlled. She is d oing well with the increase of her Lisinopril to 20 mg twice daily. Her blood pressure has improved and she is doing "well" 3. Hyperlipidemia A.Today, 04/22/2019, she remains on atorvastatin. She is tolerating her statin therapy well. 4. Tobacco use Not otherwise addressed today 04/22/2019. 5. Stage III chronic kidney disease A. eGFR on 10/14/2018 is 59 PLAN: 1. The current medical regimen is effective; continue present plan and medications. 2. She will follow up in 6 months for office visit, or sooner with concerns. Alla Tuttle, Daycare Manager am acting as a scribe on behalf of, and in the presenc e of SALVATORE Gonzales. - Alla Manjarrez Daycare Manager 04/22/2019 11:40 Tiffanie Tuttle ARNP, personally performed the services described in this documentati on, as scribed in my presence and it is both accurate and complete. -SALVATORE Gonzales 04/22/2019 Portions of this chart may have been created with [email or web address] voice recognition software. Occasi onal wrong-word or [...] | | | | | | [place] [address] | | | | | | [phone] | | | | | | | | +--------+---------+ + + + | 10/28/ | Office | Cardiology | Carol, | | | 2019 | Visit | | SALVATORE Moreno [address] | | | | | | [place], | | | | | | [place] [address] | | | | | | [phone] | | | | | | | | +--------+---------+ + + + documented as of this encounter Visit Diagnoses + + | Diagnosis | + + | Hypertension, unspecified type - Primary | + + | Ischemic cardiomyopathy Other specified forms of chronic ischemic heart disease | + + | ASHD (arteriosclerotic heart disease) Coronary atherosclerosis of unspecified type of | | vessel, [place] or graft | + + | Chest pain syndrome Chest pain, unspecified | + + | Cardiac LV ejection fraction 30-35% Other symptoms involving cardiovascular system | + + | Cardiac arrest with ventricular fibrillation (HCC) | + + | Mixed hyperlipidemia | + + documented in this encounter
--- OUTSIDE RECORDS SUMMARY | ~2019-08-21 | XMS | Encounter Summary ---
Demographics + + + | Address | [address] | | | [place] [address] | + + + | Home Phone [...] Author | [facility] | | | and Ankitana | + + + | Organization | [facility] | | | and Ankitana [...] Team Providers + +------+ + | Care Senior Vice President Name | Role | Phone | + +------+ + | Yolanda Lee | PCP | | + +------+ + Encounter Details +--------+ + + + + | Date | Type | Department | Care Team | Description | +--------+ + + + + | 08/13/ | Hospital | [facility] | RichardSeamus W, | | | 2018 | Encounter | MED CTR OR [facility] | [address] | | | | | [address] | [place], [place] | | | | | [place], [place] | [address] | | | | | [address] | | | | | | [phone] | | | +--------+ + + + [...] + + + | Blood Pressure | 131/70 | 08/13/2018 1:27 PM | | | | | PST | | + + + + + | Pulse | 63 | 08/13/2018 1:15 PM | | | | | PST | | + + + + + | Temperature | 36.4 C (97.5 F) | 08/13/2018 12:45 PM | | | | | PST | | + + + + + | Respiratory Rate | 13 | 08/13/2018 1:27 PM | | | | | PST | | + + + + + | Oxygen Saturation | 97% | 08/13/2018 1:27 PM | | | | | PST | | + + + + + | Inhaled Oxygen | - | - | | | Concentration | | | | + + + + + | Weight | 78.6 kg (173 lb 4.5 | 08/13/2018 10:58 AM | | | | oz) | PST | | + + + + + | Height | 172.7 cm (5' 8") | 08/13/2018 10:58 AM | | | | | PST | | + + + + + | Body Mass Index | 26.35 | 08/13/2018 10:58 AM | | | | | PST [...] + + + +---------+ + + | pantoprazole | Take 40 mg by mouth | | 0 | | | | (PROTONIX) 20 mg | every morning | | | | | | tablet | (before breakfast). | | | | | + + [...] ZESTRIL) | Daily. | | | | 9 | | 20 mg tablet | | [...] [address] | | | | | | [address] [place] | | | | | | [place] [address] | | | | | | [phone] | | | | | | | | +--------+---------+ + + + | 10/28/ | Office | Cardiology | Carol, | | | 2019 | Visit | | SALVATORE Moreno [address] | | | | | | [address] [place], | | | | | | [place] [address] | | | | | | [phone] | | | | | | | | +--------+---------+ + + + documented as of this encounter Procedures + +--------+ + + + | Procedure Name | Priori | Date/Time | Associated Diagnosis | Comments | | | ty | | | | + +--------+ + + + | EXTRACTION CATARACT | | 08/13/2018 | Age-related | | | W/ OR W/O LENS | | 11:47 AM | nuclear cataract of | | | IMPLANT | | PST | left eye | | + +--------+ + + + | ECG 12 LEAD | STAT | 08/13/2018 | | Results for this | | | | 10:50 AM | | procedure are in the | | | | PST | | results section. | + +--------+ + + + | CBC NO DIFFERENTIAL | STAT | 08/13/2018 | | Results for this | | | | 10:41 AM | | procedure are in the | | | | PST | | results section. | + +--------+ + + + | COMPREHENSIVE | Routin | 08/13/2018 | | Results for this | | METABOLIC PANEL | e | 10:41 AM | | procedure are in the | | | | PST | | results section. | + +--------+ + + + documented in this encounter Results ECG 12 lead (08/13/2018 10:50 AM PST) + + + + + + | Component | Value | Ref Range | Performed | Pathologist | | | | | At | Signature | + + + + + + | VENTRICULAR | 62 | BPM | [facility] | | | RATE EKG | | | | | + + + + + + | ATRIAL RATE | 62 | BPM | [facility] | | + + + + + + | P-R | 168 | ms | [facility] | | | INTERVAL | | | | | + + + + + + | QRS | 106 | ms | [facility] | | | DURATION | | | | | + + + + + + | Q-T | 478 | ms | [facility] | | | INTERVAL | | | | | + + + + + + | Q-T | 485 | ms | [facility] | | | INTERVAL | | | | | | (CORRECTED) | | | | | + + + + + + | P WAVE AXIS | 51 | degrees | [facility] | | + + + + + + | QRS AXIS | -38 | degrees | [facility] | | + + + + + + | T AXIS | 100 | degrees | [facility] | | + + + + + + | INTERPRETAT | Normal sinus | | [facility] | | | ION TEXT | rhythmPossible Left | | | | | | atrial enlargementLeft | | | | | | axis deviationLong | | | | | | QTcInferior infarct , | | | | | | age | | | | | | undeterminedNonspecific | | | | | | T wave abnormality | | | | | | Lateral leadsAbnormal | | | | | | ECGNo previous ECGs | | | | | | availableConfirmed by | | | | | | LARA WOODS MD ([id number]) | | | | | | on 08/13/2018 8:26:02 PM | | | | + + [...] | | | + +---------+ + + Comprehensive Metabolic Panel (08/13/2018 10:41 AM PST) + + + + + + | Component | Value | Ref Range | Performed | Pathologist | | | | | At | Signature | + + + + + + | Na | 136 | 136 - 149 | [facility] | | | | | mmol/L | [facility] | | [facility] | [facility] | | | [facility] - | | | | | | LABORATORY | | + + + + + + | K | 5.1 | 3.5 - 5.1 | [facility] | | | | | mmol/L | [facility] | | | | | | [facility] | | | | | | [facility] - | | | | | | LABORATORY | | + + + + + + | Cl | 107 | 98 - 109 mmol/L | [facility] | | | | | | [facility] | | | | | | [facility] | | | | | | [facility] - | | | | | | LABORATORY | | + + + + + + | CO2 | 23 (L) | 24 - 31 mmol/L | [facility] | | | | | | [facility] | | | | | | [facility] | | | | | | [facility] - | | | | | | LABORATORY | | + + + + + + | Anion Gap | 6 | 3 - 16 mmol/L | [facility] | | | | | | [facility] | | | [facility] | [facility] | | | | | | [facility] - | | | | | | LABORATORY | | + + + + + + | Glucose | 110 (H) | 70 - 109 mg/dL | [facility] | | | | | | [facility] | | [facility] | [facility] | | | | | | [facility] - | | | | | | LABORATORY | | + + + + + + | BUN | 28 (H) | 7 - 18 mg/dL | [facility] | | | | | | [facility] | | | | [facility] | [facility] | | | | | | [facility] - | | | | | | LABORATORY | | + + + + + + | Creatinine | 1.00 | 0.60 - 1.30 | [facility] | | | | | mg/dL | [facility] | | | | | | MEDICAL | | | | | | CENTER - | | | | | | LABORATORY | | + + + + + + | eGFR if not | 56 (L)Comment: | >=60 | [place] | | | | GLOMERULAR FILTRATION | mL/min/1.73m2 | [facility] | | | GRENADIAN | RATE,ESTIMATED | | MEDICAL | | | | mL/min/1.56q1Npyx than | | CENTER - | | | | 60 Chronic kidney | | LABORATORY | | | | disease,if found over a | | | | | | 3-month period.Less than | | | | | | 15 Kidney failureFor | | | | | | | | | | | | Americans,multiply the | | | | | | calculated GFR by 1.21. | | | | | | | | | | + + + + + + | Calcium | 8.9 | 8.3 - 10.5 | [facility] | | | | | mg/dL | [facility] | | | | | | MEDICAL | | | | | | CENTER - | | | | | | LABORATORY | | + + + + + + | Albumin | 3.6 | 3.2 - 5.0 g/dL | [facility] | | | | | | [facility] | | | | | | [facility] | | | | | | C[facility] - | | | | | | LABORATORY | | + + + + + + | Bilirubin | 0.5 | 0.1 - 1.5 mg/dL | [facility] | | | Total | | | [facility] | | | | | | [facility] | | | | | | CENTER - | | | | | | LABORATORY | | + + + + + + | Total | 7.1 | 6.0 - 7.8 g/dL | [facility] | | | Protein | | | [facility] | | | | | | [facility]ICAL | | | | | | CENTER - | | | | | | LABORATORY | | + + + + + + | AST | 27 | 10 - 42 U/L | [facility] | | | | | | [facility] | | | | | | [facility] | | | | | | CENTER - | | | | | | LABORATORY | | + + + + + + | ALT | 20 | 6 - 45 U/L | [facility] | | | | | | [facility] | | | | | | [facility] | | | | | | CENTER - | | | | | | LABORATORY | | + + + + + + | Alkaline | 181 (H) | 40 - 110 U/L | [facility] | | | Phosphatase | | | [facility] | | | | | | [facility] | | | | | | CENTER - | | | | | | LABORATORY | | + + + + + + | Globulin | 3.5 | 2.1 - 3.8 g/dL | [facility] | | | | | | [facility] | | | [facility] | | [facility] | | | | | | C[facility] - | | | | | | LABORATORY | | + + + + + + | Albumin/Monserrat | 1.0 | 0.8 - 2.0 | [facility] | | | bulin Ratio | | | [facility] | | | | | | [facility] | | | | | | CENTER - | | | | | | LABORATORY | | + + + + + + | BUN/Creatin | 28.0 | | [facility] | | | ine Ratio | | | [facility] | | | | | | [facility] | | | | | | CENTER - | | | | | | LABORATORY | | + + + + + + + + | Specimen | + + | Blood | + + + + + + + | Performing | Address | City/State/Zipcode | Phone Number | | Organization | | | | + + + + + | [facility] | [address] | [place] | [phone] | | [facility] | | [address] | | | - LABORATORY | | | | + + + + + CBC no Differential (08/13/2018 10:41 AM PST) + + + + + + | Component | Value | Ref Range | Performed | Pathologist | | | | | At | Signature | + + + + + + | WBC | 8.7 | 4.0 - 11.0 K/uL | [facility] | | | | | | [facility] | | | | | | MEDICAL | | | | | | CENTER - | | | | | | LABORATORY | | + + + + + + | RBC | 4.32 | 3.70 - 5.20 | [facility] | | | | | M/uL | [facility] | | | [facility] | | [facility] | | | | | | CENTER - | | | | | | LABORATORY | | + + + + + + | Hemoglobin | 11.0 (L) | 11.5 - 16.0 | [facility] | | | | | g/dL | [facility] | | | | | | [facility] | | | | | | CENTER - | | | | | | LABORATORY | | + + + + + + | Hematocrit | 36.5 | 34.0 - 47.0 % | [facility] | | | | | | [facility] | | | | | | [facility] | | | | | | C[facility] - | | | | | | LABORATORY | | + + + + + + | MCV | 84.5 | 83.0 - 101.0 fL | [facility] | | | | | | [facility] | | | | | | [facility] | | | | | | C[facility] - | | | | | | LABORATORY | | + + + + + + | MCH | 25.5 (L) | 28.0 - 35.0 pg | [facility] | | | | | | [facility] | | | | | | [facility] | | | | | | C[facility] - | | | | | | LABORATORY | | + + + + + + | MCHC | 30.1 (L) | 32.0 - 36.0 | [facility] | | | | | g/dL | [facility] | | | | | | [facility] | | | | | | CENTER - | | | | | | LABORATORY | | + + + + + + | RDW-CV | 15.8 (H) | <15.0 % | [facility] | | | | | | [facility] | [facility] | [facility] | | | | | | C[facility] - | | | | | | LABORATORY | | + + + + + + | RDW-SD | 48.4 (H) | 35.1 - 46.3 fL | [facility] | | | | | | [facility] | | | | [facility] | [facility] | | | | | | CENTER - | | | | | | LABORATORY | | + + + + + + | Platelet | 350 | 140 - 440 K/uL | [facility] | | | Count | | | [facility] | | | | | | [facility] | | | | | | CENTER - | | | | | | LABORATORY | | + + + + + + | MPV | 8.6 | 6.5 - 12.4 fL | [facility] | | | | | | [facility] | | | [facility] | [facility] | | | | | | CENTER - | | | | | | LABORATORY | | + + + + + + | % nRBC | 0 | 0 - 2 per 100 | [facility] | | | | | WBC's | [facility] | | | | | | MEDICAL | | | | | | CENTER - | | | | | | LABORATORY | | + + + + + + | Absolute | 0.00 | 0.00 - 0.01 | [facility] | | | nRBC | | K/uL | [facility] | | | | | | [facility] | | | | | | CENTER - | | | | | | LABORATORY | | + + + + + + + + | Specimen | + + | Blood | + + + + + + + | Performing | Address | City/State/Zipcode | Phone Number | | Organization | | | | + + + + + | [facility] | [address] | [place], [place] | [phone] | | [facility] | | [address] | | | - LABORATORY | | | | + + + + + documented in this encounter Visit Diagnoses Not on filedocumented in this encounter Administered Medications + +--------+---------+------+------+------+ | Medication Order | MAR | Action | Dose | Rate | Site | | | Action | Date | | | | + +--------+---------+------+------+------+ + +---+ | acetaminophen (TYLENOL) tablet | | | 1,000 mg 1,000 mg, Oral, EVERY 6 | | | HOURS PRN, Pain, Starting Marycarmen | | | 08/13/18 at 1309, Recovery/Phase I | | + +---+ | | | + +---+ | albuterol 2.5 mg/3 mL nebulizer | | | solution 2.5 mg 2.5 mg, | | | Nebulization, ONCE PRN, Wheezing, | | | Starting Marycarmen 08/13/18 at 1222, | | | For 1 dose, Notify anesthesia if | | | patient is wheezing and does not | | | have a history of asthma or COPD | | | or current smoking., | | | Recovery/Phase I | | + +---+ | | | + +---+ + +-------+ +--------+---+---+ | apraclonidine (IOPIDINE) 1 % | Given | 08/13/20 | 1 drop | | | | ophthalmic solution 1 drop 1 | | 18 11:01 | | | | | drop, Left Eye, EVERY 5 MIN PRN, | | AM PST | | | | | start time per RN discretion, | | | | | | | Starting [facility] 08/13/18 at 1034, For | | | | | | | 3 doses, Pre-op | | | | | | + +-------+ +--------+---+---+ +-------+ +--------+---+---+ | Given | 08/13/20 | 1 drop | | | | | 18 10:52 | | | | | | AM PST | | | | +-------+ +--------+---+---+ | Given | 08/13/20 | 1 drop | | | | | 18 10:46 | | | | | | AM PST | | | | +-------+ +--------+---+---+ + +---+ | | | + +---+ | diclofenac (VOLTAREN) 0.1 % | | | ophthalmic solution 1 drop 1 | | | drop, Left Eye, EVERY 5 MIN PRN, | | | prep eye for procedure, Starting | | | [facility] 08/13/18 at 1034, For 3 doses, | | | Pre-op | | + +---+ | | | + +---+ + +-------+ +--------+---+---+ | flurbiprofen (OCUFEN) 0.03% | Given | 08/13/20 | 1 drop | | | | ophthalmic solution 1 drop 1 | | 18 11:46 | | | | | drop, Left Eye, EVERY 5 MIN, | | AM PST | | | | | First dose on [facility] 08/13/18 at | | | | | | | 1145, For 3 doses, 1 drop every 5 | | | | | | | minutes for 3 doses, Pre-op | | | | | | + +-------+ +--------+---+---+ +-------+ +--------+---+---+ | Given | 08/13/20 | 1 drop | | | | | 18 11:37 | | | | | | AM PST | | | | +-------+ +--------+---+---+ | Given | 08/13/20 | 1 drop | | | | | 18 11:33 | | | | | | AM PST | | | | +-------+ +--------+---+---+ +---+---+ | | | +---+---+ + +---------+ +---+-------+---+ | lactated ringers (LR) infusion | New Bag | 08/13/20 | | 100 | | | at 10-100 mL/hr, Intravenous, | | 18 10:59 | | mL/hr | | | CONTINUOUS, Starting [facility] 08/13/18 | | AM PST | | | | | at 1100, TKO., Pre-op | | | | | | + +---------+ +---+-------+---+ + +---+ | | | + +---+ | ondansetron (ZOFRAN) injection | | | 4 mg 4 mg, Intravenous, ONCE | | | PRN, Nausea, Starting [facility] 08/13/18 | | | at 1222, For 1 dose, | | | Recovery/Phase I | | + +---+ | | | + +---+ | phenylephrine (HADLEY-SYNEPHRINE) | | | 10 % ophthalmic solution 1 drop | | | 1 drop, Left Eye, EVERY 5 MIN | | | PRN, Other, prep eye for | | | procedure, Starting [facility] 08/13/18 | | | at 1034, For 3 doses, Pre-op | | + +---+ | | | + +---+ + +-------+ +--------+---+---+ | phenylephrine (HADLEY-SYNEPHRINE) | Given | 08/13/20 | 1 drop | | | | 2.5% ophthalmic solution 1 drop | | 18 11:46 | | | | | 1 drop, Left Eye, EVERY 5 MIN, | | AM PST | | | | | First dose on [facility] 08/13/18 at | | | | | | | 1145, For 3 doses, Pre-op | | | | | | + +-------+ +--------+---+---+ +-------+ +--------+---+---+ | Given | 08/13/20 | 1 drop | | | | | 18 11:37 | | | | | | AM PST | | | | +-------+ +--------+---+---+ | Given | 08/13/20 | 1 drop | | | | | 18 11:33 | | | | | | AM PST | | | | +-------+ +--------+---+---+ + +---+ | | | + +---+ | povidone-iodine 5 % ophthalmic | | | solution 1 drop 1 drop, Left | | | Eye, EVERY 5 MIN PRN, Other, prep | | | eye for procedure, Starting Marycarmen | | | 08/13/18 at 1034, For 3 doses, Do | | | not continue post-operatively., | | | Pre-op | | + +---+ | | | + +---+ + +-------+ +--------+---+---+ | proparacaine (ALCAINE) 0.5% | Given | 08/13/20 | 1 drop | | | | ophthalmic solution 1 drop 1 | | 18 11:01 | | | | | drop, Left Eye, EVERY 5 MIN PRN, | | AM PST | | | | | prep eye for procedure, Starting | | | | | | | Marycarmen 08/13/18 at 1034, For 3 doses, | | | | | | | Pre-op | | | | | | + +-------+ +--------+---+---+ +-------+ +--------+---+---+ | Given | 08/13/20 | 1 drop | | | | | 18 10:51 | | | | | | AM PST | | | | +-------+ +--------+---+---+ | Given | 08/13/20 | 1 drop | | | | | 18 10:46 | | | | | | AM PST | | | | +-------+ +--------+---+---+ +---+---+ | | | +---+---+ + +-------+ +--------+---+---+ | tropicamide (MYDRIACYL) 1% | Given | 08/13/20 | 1 drop | | | | ophthalmic solution 1 drop 1 | | 18 11:01 | | | | | drop, Left Eye, EVERY 5 MIN PRN, | | AM PST | | | | | prep eye for procedure, Starting | | | | | | | Marycarmen 08/13/18 at 1034, For 3 doses, | | | | | | | Pre-op | | | | | | + +-------+ +--------+---+---+ +-------+ +--------+---+---+ | Given | 08/13/20 | 1 drop | | | | | 18 10:51 | | | | | | AM PST | | | | +-------+ +--------+---+---+ | Given | 08/13/20 | 1 drop | | | | | 18 10:46 | | | | | | AM PST | | | | +-------+ +--------+---+---+ +---+---+ | | | +---+---+ documented in this encounter
--- OUTSIDE RECORDS SUMMARY | ~2019-08-21 | XMS | Encounter Summary ---
Demographics + + + | Address | [address] | | | [place] [address] | + + + | Home Phone | | + + + | Preferred Language | Unknown | + + + | Marital Status | | + + + | Worship Affiliation | [id number] | + + + | Race | Unknown | + + + | Ethnic Group | Unknown | + + + Author + + + | Author | [facility] | | | and Ankitana | + + + | Organization | [facility] | | | and [...] Team Providers + +------+ + | Care Dry Yard Worker Name | Role | Phone | [...] [facility] | | | | | CENTER [address] | | | [address] | [place] [address] | | | | | [place] | [phone] | | | | | [address] | | | | | | [phone] | | | +--------+ + + + [...] | | | | | [place] [address] | | | | | | [phone] | | | | | | | | +--------+---------+ + + + | 10/28/ | Office | Cardiology | Carol, | | | 2019 | Visit | | SALVATORE Moreno [address] | | | | | | [place], | | | | | | [place] [address] | | | | | | [phone] | | | | | | | | +--------+---------+ + + + documented as of this encounter Visit Diagnoses Not on filedocumented in this encounter"
--- OUTSIDE RECORDS SUMMARY | ~2019-08-21 | XMS | Encounter Summary ---
Demographics + + + | Address | [address] | | | [place] [address] | + + + | Home Phone [...] Author | [facility] | | | and Ankitana | + + + | Organization | [facility] | | | and [...] Team Providers + +------+ + | Care Strategic Manager Name | Role | Phone | + +------+ + | [facility] | PCP | | + +------+ + Reason for Referral Diagnostic/Screening (Routine) +--------+--------+ + + + + | Status | Reason | Specialty | Diagnoses / | Referred By | Referred To | | | | | Procedures | Contact | Contact | +--------+--------+ + + + + | Closed | | Radiology | Diagnoses | Mani Thompson | [facility] Echo | | | | | | K, MD [address] | [place] | | | | | Cardiomyopat | [address] | [address] | | | | | hy (HCC) | [address] | | | | | Procedures | [address] | [place], [place] | | | | | ECHO | [place], | [address] | | | | | Complete | [place] | Phone: | | | | | | [address] | [phone] | | | | | | | Fax: | | | | | | | [phone] | +--------+--------+ + + + + Reason for Visit + + + | Reason | Comments | + + + | Coronary Artery | Pt in today for a follow up with no complaints. | | Disease | | + + + Follow Up (Routine) +--------+--------+ + + + + | Status | Reason | Specialty | Diagnoses / | Referred By | Referred To | | | | | Procedures | Contact | Contact | +--------+--------+ + + + + | Closed | | Cardiology | Diagnoses | [facility] | Mani Thompson | | | | | Coronary | [place] | MD [address] | | | | | atherosclero | CARDIOLOGY | Gabriela Gallardo | | | | | sis of | [address] | | | | | [address] | [address] | [place], | | | | | coronary | [address] | [place] [address] | | | | | artery | [place] | | | | | | 06/18/2013 fm | [address] | | | | | | per SKL dx | | | | | | | of 414.01 | | | | | | | Coronary | | | | | | | atherosclero | | | | | | | sis pilot point | | | | | | | coronary | | | | | | | artery - | | | | | | | Insurance: | | | | | | | Medicare | | | | | | | Assigned | | | | | | | [facility] | | | | | | | Procedures | | | | | | | WS CARD | | | | | | | OFFICE VISIT | | | +--------+--------+ + + + + Encounter Details +--------+---------+ + + + | Date | Type | Department | Care Team | Description | +--------+---------+ + + + | 01/13/ | Office | [facility] | Mani Thompson MD | Coronary artery | | 2013 | Visit | CARDIOLOGY [facility] | [address] | disease (Primary | | | | [address] | [address] | Dx); Cardiomyopathy | | | | [address] [place], [place] | [place] | ([facility]); Ischemic | | | | [address] | [address] | cardiomyopathy; | | | | [phone] | | Hypertension; | | | | | | Dyslipidemia | +--------+---------+ + + + Social History + + + +--------+------+ | Tobacco Use | Types | Packs/Day | Years | Date | | | | | Used | | + + + +--------+------+ | Current Every Day | Cigarettes | 0.5 | | | | Smoker | | | | | + + + +--------+------+ + +---+---+---+ | Smokeless Tobacco: | | | | | Never Used | | | | + +---+---+---+ + + +---------+ + | Alcohol Use [...] + + + | Blood Pressure | 126/88 | 01/13/2014 2:49 PM | left | | | | PDT | | + + + + + | Pulse | 86 | 01/13/2014 2:46 PM | regular | | | | PDT | | [...] + + + + | Weight | 70.8 kg (156 lb) | 01/13/2014 2:46 PM | | | | | PDT | | + + + + + | Height | 172.7 cm (5' 8") | 01/13/2014 2:46 PM | | | | | PDT | | + + + + + | Body Mass Index | 23.72 | 01/13/2014 2:46 PM | | | | | PDT | | + + + + + documented in this encounter Progress Notes Mani Thompson MD - 01/13/2014 2:49 PM PDTFormatting of this note might be different from t rema original. Problems That Were Updated This Visit Coronary artery disease Overview Her cardiac catheterization showed 100% occlusion of the proximal circumflex and 100% dis eleni RCA with left to right collateral. The decision was to intervene on the proximal circumf jemima lesion and the patient underwent intervention with no complications Current Assessment & Plan Note From a cardiovascular symptom standpoint, the patient has been doing quite well. She has no chest pain with her current physical exertion. At this point, we will continue with the c urrent medical therapy for the patient. I will stop Plavix today. Dyslipidemia Current Assessment & Plan Note I will defer this aspect of her care to her PCP. Hypertension Current Assessment & Plan Note Her blood pressure is goo. I will not make any change today. Ischemic cardiomyopathy Current Assessment & Plan Note According to her last echocardiogram, her ejection fraction was 40%. From a symptom stand point, the patient has been doing well on HF medications. I will repeat another echo to [facility] her LVEF for further improvement. PATIENT NAME: Anne Marie Pichardo : 1955: AGE: 58 y.o. PRIMARY CARE: [facility] CHIEF COMPLAINT: Chief Complaint Patient presents with Coronary Artery Disease Pt in today for a follow up with no complaints. CURRENT ASSESSMENT AND PLAN Problems That Were Updated This Visit Coronary artery disease Overview Her cardiac catheterization showed 100% occlusion of the proximal circumflex and 100% dis eleni RCA with left to right collateral. The decision was to intervene on the proximal circumf jemima lesion and the patient underwent intervention with no complications Current Assessment & Plan Note From a cardiovascular symptom standpoint, the patient has been doing quite well. She has no chest pain with her current physical exertion. At this point, we will continue with the c urrent medical therapy for the patient. I will stop Plavix today. Dyslipidemia Current Assessment & Plan Note I will defer this aspect of her care to her PCP. Hypertension Current Assessment & Plan Note Her blood pressure is goo. I will not make any change today. Ischemic cardiomyopathy Current Assessment & Plan Note According to her last echocardiogram, her ejection fraction was 40%. From a symptom stand point, the patient has been doing well on HF medications. I will repeat another echo to [facility] her LVEF for further improvement. FOLLOWUP No Follow-up on file. MEDICATION ADJUSTMENTS New Prescriptions No medications on file These Medications Have Changed Start Taking Instead of nitroglycerin (NITROSTAT) 0.4 mg SL tablet nitroglycerin (NITROSTAT) 0.4 mg SL tablet Dosage: Place 1 tablet under the tongue every 5 minutes as needed. Arlyn repeat x 3 tablet s total. IF CP not relieved pt 3 tablets call 911 - Sublingual Dosage: Place 0.4 mg under t he tongue every 5 minutes as needed. - Sublingual Medications Discontinued During This Encounter Medication Reason nitroglycerin (NITROSTAT) 0.4 mg SL tablet Reorder NEW ORDERS Orders Placed This Encounter Procedures ECHO Complete HISTORY OF PRESENT ILLNESS Anne Marie Pichardo is a 58 y.o. year old female with a medical history significant for a l ongstanding smoking history, dyslipidemia, hypertension, coronary artery disease status post percutaneous coronary intervention and stenting of the proximal circumflex, and ischemic ca rdiomyopathy, who presents today for follow up. Since the last visit, there have been no sig nificant change. She has been walking 1 mile uphill daily. She denies any chest pain, short ness of breath, or dizziness. No orthopnea, paroxysmal nocturnal dyspnea, or edema. No TIA o r stroke-like symptoms. She has still smoked 6-8 cigarettes daily MEDICAL, SURGICAL, AND PERSONAL HISTORY Past Medical, Surgical, Family, and Social History are reviewed in EPIC. CURRENT MEDICATIONS Outpatient Encounter Prescriptions as of 01/13/2014 Medication Sig Dispense Refill aspirin 81 mg EC tablet Take 81 mg by mouth Daily. atorvaSTATin (LIPITOR) 40 mg tablet Take 40 mg by mouth nightly. carvedilol (COREG) 6.25 mg tablet Take 6.25 mg by mouth 2 times daily (with breakfast & dinner). clopidogrel (PLAVIX) 75 mg tablet Take 75 mg by mouth Daily. FLUoxetine (PROZAC) 20 mg capsule Take 20 mg by mouth Daily. HYDROcodone-acetaminophen (NORCO) 5-325 mg per tablet Take 1-2 tablets by mouth every 6 hours as needed for Pain. 15 tablet 0 hydrOXYzine hydrochloride (ATARAX) 10 mg tablet Take 20 mg by mouth every 6 hours as ne eded. lisinopril (PRINIVIL, ZESTRIL) 10 mg tablet Take 10 mg by mouth Daily. nitroglycerin (NITROSTAT) 0.[address] 1 tablet under the tongue every 5 maryt rock as needed. Arlyn repeat x 3 tablets total. IF CP not relieved pt 3 tablets call 911 100 tablet 0 [DISCONTINUED] nitroglycerin (NITROSTAT) 0.[address] 0.4 mg under the tongue every 5 minutes as needed. QUEtiapine (SEROQUEL) 100 mg tablet Take 100 mg by mouth 2 times daily. UNABLE TO FIND Med Name: Carbedalol Per pt. UNKNOWN TO PATIENT Chlostesterol med ALLERGIES No Known Allergies ROS Review of Systems HENT: Positive for nosebleeds and neck pain. Respiratory: Positive for shortness of breath. Musculoskeletal: Positive for joint pain and falls. All other systems reviewed and are negative. PHYSICAL EXAM BP 126/88 | Pulse 86 | Ht 1.727 m (5' 8") | Wt 70.761 kg (156 lb) | BMI 23.73 kg/m2 Body mass index is 23.73 kg/(m^2). GENERAL: Pleasant, talkative in no apparent distress HEENT: The oropharynx and conjunctivae are clear. Mucous membranes moist. [place]. NECK: Supple. Carotids are 2+ and brisk bilaterally without bruits. CHEST: Good inspiratory effort with no crackles, ronchi, or wheezes. CARDIAC: No lifts/heaves. PMI is discrete and non-displaced. Normal S1 and S2. No murmur s, rubs or gallops. ABDOMEN: Soft, non-tender, nondistended with normal, active bowel sounds. Normal abdominal pulsation without bruit. EXTREMITIES: No clubbing, cyanosis, or edema. PULSES: Right: radial 2+, femoral 2+ DP 2+, PT 2+ Left: radial 2+, femoral 2+ DP 2+, PT 2+ NEUROLOGIC: Non-focal. SKIN: No rashes or skin breakdown. MUSCULOSKELETAL: normal ambulation LABS Lab Results Component Value Date WBC 7.3 03/24/2013 HGB 14.8 03/24/2013 HCT 44.5 03/24/2013 PLT 267 03/24/2013 ALT 34 03/24/2013 AST 31 03/24/2013 NA 138 03/24/2013 K 3.6 03/24/2013 CL 106 03/24/2013 CREA 0.59 03/24/2013 BUN 13 03/24/2013 CO2 22 03/24/2013 INR 0.9 03/24/2013 Thank you for allowing me to participate in the care of this patient. If you have any ques tions, please do not hesitate to contact me. Signed by: Mani Thompson MD, FACC 01/13/2014, 15:08 documented [facility] this [facility] Plan of Treatment +--------+---------+ + + + | Date | Type | Specialty | Care Team | Description | +--------+---------+ + + + | 09/01/ | Office | Gastroenterology | Aba Gonsalez | | | 2018 | Visit | | MD George [address] | | | | | | [place] | | | | | | [place] [address] | | | | | | [phone] | | | | | | | | +--------+---------+ + + + | 10/28/ | Office | Cardiology | Carol, | | | 2019 | Visit | | SALVATORE Moreno [address] | | | | | | [place] | | | | | | [place] [address] | | | | | | [phone] | | | | | | | | +--------+---------+ + + + documented as of this encounter Results ECHO Complete (01/13/2014 4:30 PM PDT) + + | Specimen | + + | | + + + + -+ | Narrative | Performed At | + + -+ | | [facility] | | | LAB | | Adult | | | Echo | | | | | | Report Name: ANNE MARIE PICHARDO | | | Date: 01/13/2014MRN: [id number] [facility] [place] [facility] 1955 Age: 58 yrs | | | Gender: FemaleHeight: 68 in | | | Weight: 156 lb BSA: 1.8 meters2 | | | HR: 64 | | | Rhythm: SinusHistory: Coronary artery disease with prior | | | infarction and cardiac arrest,prior echo 05/2013 shows inferior IA, | | | EF= 40% Reason For Study: Cardiomyopathy, AUC 87 INTERPRETATION | | | SUMMARY:A two-dimensional transthoracic echocardiogram with M-mode, | | | pulsed waveand color Doppler was performed. The study was diagnostic | | | quality.1. Normal left ventricular size and the global systolic | | | function at thelower limit of normal LVEF 50%. Moderate-severe | | | hypokinesis of theinferior wall.2. Thickened mitral valve with mild | | | mitral regurgitation.3. Sclerotic aortic valve without stenosis or | | | regurgitation.4. Normal right ventricle size and function. Left | | | Ventricle:The left ventricle is normal in size. There is normal left | | | ventricularwall thickness. Left ventricular diastolic dysfunction is | | | suspectedassociated with a delayed relaxation {I} pattern. Left | | | ventricularsystolic function is mildly reduced. The estimated ejection | | | fraction is50%. No thrombus noted. There is moderate to severe | | | inferior wallhypokinesis. Right Ventricle:The right ventricle is | | | normal in size and function. Atria:The left atrium is mildly dilated. | | | Right atrial size is normal. The IVCmeasures WNL and shows normal | | | inspiratory collapse. The interatrial septumis intact with no evidence | | | for an atrial septal defect. Mitral Valve:The mitral valve leaflets | | | appear thickened, but open well. There is mildmitral annular | | | calcification. There is mild mitral regurgitation. Tricuspid | | | Valve:Normal tricuspid valve. There is trace tricuspid regurgitation. | | | Unable toaccurately assess RV systolic pressures in the absence of | | | significanttricuspid regurgitation. Aortic Valve:The aortic valve is | | | trileaflet. The aortic valve is mildly sclerotic. Theaortic valve | | | opens well. No aortic insufficiency is present. Pulmonic Valve:The | | | pulmonic valve is grossly normal. There is no pulmonic | | | valvularinsufficiency. Great Vessels:The aortic root is normal size. | | | The ascending aorta appears grosslynormal. The aortic arch appears | | | grossly normal. The pulmonary artery isgrossly normal in appearance. | | | Pericardium/Pleural:There is no pericardial effusion. MMode/2D | | | Measurements & CalculationsRVDd: 3.8 cm | | | LVIDd: 5.0 cmIVSd: 1.2 cm | | | LVIDs: 3.6 cmIVSs: 1.6 cm | | | LVPWd: 0.69 cm | | | LVPWs: 0.64 cm FS: 28.5 % | | | Ao root diam: 3.1 cm | | | ACS: 1.9 cmasc Aorta Diam: 3.0 cm LAs | | | major: 5.8 cmRAs major: 4.6 cm Doppler Measurements & CalculationsMV | | | E max padmini: 102.0 cm/sec MV dec time: 0.28 secMV A | | | max padmini: 118.0 cm/secMV E/A: 0.86Ao V2 max: 181.0 cm/sec | | | LV V1 max P.1 mmHgAo max P.1 mmHg | | | LV V1 max: 123.0 cm/secRAP systole: 5.0 mmHg Interpreting | | | Physician: Mani Thompson MDelectronically signed on 01/14/2014 08:08 | | | AMOrdering Physician: MANI THOMPSONReferring Physician: Yolanda | | | Zoila Leehocardiographer: Edson Cárdenas [id number]: | | |Great Vessels: | | |The aortic root is normal size. The ascending aorta appears grossly | | |normal. The aortic arch appears grossly normal. The pulmonary artery is | | |grossly normal in appearance. | | | | | |Pericardium/Pleural: | | |There is no pericardial effusion. | | | | | |MMode/2D Measurements & Calculations | | |RVDd: 3.8 cm LVIDd: 5.0 cm | | |IVSd: 1.2 cm LVIDs: 3.6 cm | | |IVSs: 1.6 cm LVPWd: 0.69 cm | | | LVPWs: 0.64 cm | | | | | |FS: 28.5 % Ao root diam: 3.1 cm | | | ACS: 1.9 cm | | |asc Aorta Diam: 3.0 cm LAs major: 5.8 cm | | |Grant major: 4.6 cm | | | | | |Doppler Measurements & Calculations | | |MV E max padmini: 102.0 cm/sec MV dec time: 0.28 sec | | |MV A max padmini: 118.0 cm/sec | | |MV E/A: 0.86 | | |Ao V2 max: 181.0 cm/sec LV V1 max P.1 mmHg | | |Ao max P.1 mmHg LV V1 max: 123.0 cm/sec | | |RAP systole: 5.0 mmHg | | | | | |Interpreting Physician: Mani Thompson MD | | |electronically signed on 01/14/2014 08:08 AM | | |Ordering Physician: MANI THOMPSON | | |Referring Physician: SALVATORE Maldonado | | |Entertainment Lawyer: Edson Jimenez | | |[id number]: | | | | | + + -+ + + | Procedure Note | + + | Tim, Rad Results In - 01/14/2014 8:09 AM PDT | | Adult | | Echo | | Report | | | | Name: ANNE MARIE PICHARDO Date: 01/13/2014 | | Patient Location: [facility] | | : 1955 Age: 58 yrs Gender: Female | | Height: 68 in Weight: 156 lb BSA: 1.8 meters2 | | HR: 64 Rhythm: Sinus | | History: Coronary artery disease with prior infarction and cardiac arrest, | | prior echo 05/2013 shows inferior IA, EF= 40% | | | | Reason For Study: Cardiomyopathy, AUC 87 | | | | INTERPRETATION SUMMARY: | | A two-dimensional transthoracic echocardiogram with M-mode, pulsed wave | | and color Doppler was performed. The study was diagnostic quality. | | 1. Normal left ventricular size and the global systolic function at the | | lower limit of normal LVEF 50%. Moderate-severe hypokinesis of the | | inferior wall. | | 2. Thickened mitral valve with mild mitral regurgitation. | | 3. Sclerotic aortic valve without stenosis or regurgitation. | | 4. Normal right ventricle size and function. | | | | Left Ventricle: | | The left ventricle is normal in size. There is normal left ventricular | | wall thickness. Left ventricular diastolic dysfunction is suspected | | associated with a delayed relaxation {I} pattern. Left ventricular | | systolic function is mildly reduced. The estimated ejection fraction is | | 50%. No thrombus noted. There is moderate to severe inferior wall | | hypokinesis. | | | | Right Ventricle: | | The right ventricle is normal in size and function. | | | | Atria: | | The left atrium is mildly dilated. Right atrial size is normal. The IVC | | measures WNL and shows normal inspiratory collapse. The interatrial septum | | is intact with no evidence for an atrial septal defect. | | | | Mitral Valve: | | The mitral valve leaflets appear thickened, but open well. There is mild | | mitral annular calcification. There is mild mitral regurgitation. | | | | Tricuspid Valve: | | Normal tricuspid valve. There is trace tricuspid regurgitation. Unable to | | accurately assess RV systolic pressures in the absence of significant | | tricuspid regurgitation. | | | | Aortic Valve: | | The aortic valve is trileaflet. The aortic valve is mildly sclerotic. The | | aortic valve opens well. No aortic insufficiency is present. | | | | Pulmonic Valve: | | The pulmonic valve is grossly normal. There is no pulmonic valvular | | insufficiency. | | | | Great Vessels: | | The aortic root is normal size. The ascending aorta appears grossly | | normal. The aortic arch appears grossly normal. The pulmonary artery is | | grossly normal in appearance. | | | | Pericardium/Pleural: | | There is no pericardial effusion. | | | | MMode/2D Measurements & Calculations | | RVDd: 3.8 cm LVIDd: 5.0 cm | | IVSd: 1.2 cm LVIDs: 3.6 cm | | IVSs: 1.6 cm LVPWd: 0.69 cm | | LVPWs: 0.64 cm | | | | FS: 28.5 % Ao root diam: 3.1 cm | | ACS: 1.9 cm | | asc Aorta Diam: 3.0 cm LAs major: 5.8 cm | | Grant major: 4.6 cm | | | | Doppler Measurements & Calculations | | MV E max padmini: 102.0 cm/sec MV dec time: 0.28 sec | | MV A max padmini: 118.0 cm/sec | | MV E/A: 0.86 | | Ao V2 max: 181.0 cm/sec LV V1 max P.1 mmHg | | Ao max P.1 mmHg LV V1 max: 123.0 cm/sec | | RAP systole: 5.0 mmHg | | | | Interpreting Physician: Mani Thompson MD | | electronically signed on 01/14/2014 08:08 AM | | Ordering Physician: MANI THOMPSON | | Referring Physician: SALVATORE Maldonado | | Entertainment Lawyer: Edson Jimenez | | [id number]: | + + + + | Transcriptions | + + | Omi White - 01/14/2014 12:00 AM PDT | + + + +---------+ + + | Performing | Address | City/State/Zipcode | Phone Number | | Organization | | | | + +---------+ + + | [facility] | | | [phone] | + +---------+ + + | [facility] | | | [phone] | + +---------+ + + documented in this encounter Visit Diagnoses + + | Diagnosis | + + | Coronary artery disease - Primary Coronary atherosclerosis of unspecified type of | | vessel, pilot point or graft | + + | Cardiomyopathy (HCC) Other primary cardiomyopathies | + + | Ischemic cardiomyopathy Other specified forms of chronic ischemic heart disease | + + | Hypertension Unspecified essential hypertension | + + | Dyslipidemia Other and unspecified hyperlipidemia | + + documented in this encounter
--- OUTSIDE RECORDS SUMMARY | ~2019-08-21 | XMS | Encounter Summary ---
Demographics + + + | Address | [address] | | | [place] [address] | + + + | Home Phone | | + + + | Preferred Language | Unknown | + + + | Marital Status | | + + + | Advent Affiliation | 1041 | + + + | Race | Unknown | + + + | Ethnic Group | Unknown | + + + Author + + + | Author | [facility] | | | and Ankitana | + + + | Organization | [facility] | | | and [...] Team Providers + +------+ + | Care Fish Peddler Name | Role | Phone | + +------+ + PCP | Unavailable | + +------+ + Encounter Details +--------+ + + + + | Date | Type | Department | Care Team | Description | +--------+ + + + + | 06/28/ | Hospital | [facility] | Kenneth Fields MD | | | 2008 | Encounter | [facility] | [address] | | | | | CENTER [address] | [place] | | | | | [place] | [address] | | | | | [place] | | | | | | [address] | | | | | | [phone] | | | +--------+ + + + [...] | | | | | [place] [address] | | | | | | [phone] | | | | | | | | +--------+---------+ + + + | 10/28/ | Office | Cardiology | Carol, | | | 2019 | Visit | | SALVATORE [place]no [address] | | | | | | [place], | | | | | | [place] [address] | | | | | | [phone] | | | | | | | | +--------+---------+ + + + documented as of this encounter Visit Diagnoses Not on filedocumented in this encounter"
--- OUTSIDE RECORDS SUMMARY | ~2019-08-21 | XMS | Encounter Summary ---
Demographics + + + | Address | [address] | | | [place] [address] | + + + | Home Phone | | + + + | Preferred Language | Unknown | + + + | Marital Status | | + + + | Lutheran Affiliation | 1041 | + + + | Race | Unknown | + + + | Ethnic Group | Unknown | + + + Author + + + | Author | [facility] | | | and Ankitana | + + + | Organization | [facility] | | | and Ankitana | + + + | Address | Unknown | + + + | Phone | Unavailable | + + + Support + + +---------+ + | Name | Relationship | Address | Phone | + + +---------+ + | Lizz Curz | ECON | Unknown | | + + +---------+ + | Becky Cruz | ECON | Unknown | | + + +---------+ + Care Team Providers + +------+ + | Care Contracting Executive Name | Role | Phone | + [...] [address] | | | | [place] [address] | [facility] | | | | | [facility] | [place] [address] | | | | | [place] | [phone] | | | | | [address] | | | | | | [phone] | | | +--------+ + + + [...] | | | | | | [place] [address] | | | | | | [phone] | | | | | | | | +--------+---------+ + + + | 10/28/ | Office | Cardiology | Carol, | | | 2019 | Visit | | SALVATORE Moreno [address] | | | | | | [place], | | | | | | [place] [address] | | | | | | [phone] | | | | | | | [...] + + + | Exam Performed Location: [facility] | [facility] | | TWO-VIEW CHEST [...] 07/31/2013 11:20 AM PDT [facility]ICAL INFORMATION:Upper respiratory | | [...] + | [facility] | | | [phone] | + +---------+ + + | [facility] | | | [phone] | + +---------+ + + documented in this encounter Visit Diagnoses Not on filedocumented in this encounter"
--- OUTSIDE RECORDS SUMMARY | ~2019-08-21 | XMS | Encounter Summary ---
Demographics + + + | Address | [address] | | | [place] [address] | + + + | Home Phone [...] + | Author | [facility] | | | and Ankitana | + + + | Organization | [facility] | | | and [...] Team Providers + +------+ + | Care Stripper And Printer Name | Role | Phone | + [...] [address] | | | | [place] [address] | [facility] | | | | | [facility] | [place] [address] | | | | | [place] | [phone] | | | | | [address] | | | | | | [phone] | | | +--------+ + + + [...] | | | | | | [place] [address] | | | | | | [phone] | | | | | | | | +--------+---------+ + + + | 10/28/ | Office | Cardiology | Carol, | | | 2019 | Visit | | SALVATORE Moreno [address] | | | | | | [place], | | | | | | [place] [address] | | | | | | [phone] | | | | | | | [...] + + + | Exam Performed Location: [facility] | MISCELANIOUS | | RIGHT UPPER EXTREMITY [...] + | Tim, Rad Conversion - 07/31/2013 10:22 AM PDT Exam Performed Location: [facility] | | at [facility] UPPER EXTREMITY VENOUS EXAM FOR DVTCLINICAL [...] phoned | | to [facility] Francisco [facility] at 1045 hours.The radiologist/surgeon | | [...] phoned to ZARI Francisco in the | |emergency department at 1045 hours. | | | [...] + | MISCELLANEOUS LAB | | | [phone] | + +---------+ + + | MISCELANIOUS LAB | | | [phone] | + +---------+ + + Historical Imaging Result (09/14/2008 10:41 AM PST) + + | Specimen | + + | | + + + + + | Narrative | Performed At | + + + | Exam Performed Location: [facility] | MISCELANIOUS | | RIGHT UPPER EXTREMITY [...] + | Presley Dumont Conversion - 07/31/2013 10:19 AM PDT Exam Performed Location: [facility] | | at [facility] UPPER EXTREMITY ARTERIALCLINICAL INFORMATION:The patient | [...] + + | Performing | Address | City/State[facility] | Phone Number | | Organization | | | | + +---------+ + + | MISCELLANEOUS LAB | | | [phone] | + +---------+ + + | MISCELANIOUS LAB | | | [phone] | + +---------+ + + documented in this encounter Visit Diagnoses Not on filedocumented in this encounter"
--- OUTSIDE RECORDS SUMMARY | ~2019-08-21 | XMS | Encounter Summary ---
Demographics + + + | Address | [address] | | | [place] [address] | + + + | Home Phone | | + + + | Preferred Language | Unknown | + + + | Marital Status | | + + + | Jewish Affiliation | 1041 | + + + | Race | Unknown | + + + | Ethnic Group | Unknown | + + + Author + + + | Author | [facility] | | | and Ankitana | + + + | Organization | [facility] | | | and [...] Team Providers + +------+ + | Care Director Executive Communications Name | Role | Phone | + +------+ + | Kiran Oneill DO | PCP | | + +------+ + Encounter Details +--------+ + + + + | Date | Type | Department | Care Team | Description | +--------+ + + + + | 09/10/ | Anesthesia | [facility] | Kulwinder Jackson MD | | | 2018 | Event | [facility] | [address] | | | | | [address] | [place] | | | | | [place] | [address] | | | | | [address] | | | | | | [phone] | | | +--------+ + + + + Anesthesia Record + + + + + | Procedure Name | Responsible | Anesthesia Start | Anesthesia Stop Time | | | Anesthesiologist | Time | | + + + + + | RIGHT EXTRACTION | Kulwinder Jackson MD | 09/10/18 1435 | 09/10/18 1523 | | CATARACT WITH LENS | | | | | IMPLANT (Right Eye) | | | | + + + + + +----+---+ + + | Da | T | Event | Comment | | te | i | | | | | m | | | | | e | | | +----+---+ + + | 12 | 1 | | | | /0 | 4 | | | | 6/ | 3 | | | | 20 | 0 | | | | 18 | | | | +----+---+ + + | | 1 | An Checkout | Pre-use anesthesia machine/equipment checkout. | | | 4 | | | | | 3 | | | | | 5 | | | +----+---+ + + | | 1 | An Start | Reassessment prior to anesthesia induction/procedure. | | | 4 | | | | | 3 | | | | | 5 | | | +----+---+ + + | | 1 | AN | Per surgeon request | | | 4 | Antibiotic | | | | 3 | declined | | | | 5 | | | +----+---+ + + | | 1 | An Start | | | | 4 | Data | | | | 3 | | | | | 5 | | | +----+---+ + + | | 1 | Preoxygenat | | | | 4 | ed | | | | 3 | | | | | 6 | | | +----+---+ + + | | 1 | An | | | | 4 | Induction | | | | 3 | | | | | 8 | | | +----+---+ + + | | 1 | An | | | | 4 | Intubation | | | | 3 | | | | | 9 | | | +----+---+ + + | | 1 | Pre-Procedu | | | | 4 | ral Timeout | | | | 4 | Completed | | | | 8 | | | +----+---+ + + | | 1 | Breathing | | | | 4 | Spontaneous | | | | 4 | ly | | | | 8 | | | +----+---+ + + | | 1 | First | | | | 4 | Inc/Proc St | | | | 4 | | | | | 9 | | | +----+---+ + + | | 1 | Extubated | | | | 5 | Deep | | | | 1 | | | | | 7 | | | +----+---+ + + | | 1 | an stop | | | | 5 | data | | | | 1 | | | | | 7 | | | +----+---+ + + | | 1 | An Stop | Patient handed off to recovery nurse. | | | 2 | | | | | 3 | | | +----+---+ + + +------+ | Meds | +------+ + +--------+ | Name | Total | + +--------+ | propofol (DIPRIVAN) injection | 120 mg | | (bolus) (20 mL) | | + +--------+ | ePHEDrine | 10 mg | + +--------+ | lactated ringers (LR) infusion | 300 mL | + +--------+ + + | Name | + + | N2O Flow Rate (L/Min) | + + | O2 Flow Rate (L/Min) | + + | Insp O2 | + + | Exp SEV | + + | Air Flow Rate (L/Min) | + + + + | No blood administrations on file. | + + +--------+ + + + | Type | Details | Placement | Removal | +--------+ + + + | Wound | 12/29/14; 1014; Right:; lateral; | 12/29/14 1014 by | 09/10/18 1551 by | | | torso; ulceration; scattered open | Alla Vernon RN | Yecenia Domingo RN | | | areas and scab; 09/10/18; 1551 | | | +--------+ + + + | Wound | 02/22/15; Left:; lower; leg; | 02/22/15 0000 by | 09/10/18 1551 by | | | abscess (healthing closed, 50 | Ashely Rodgers RN | Yecenia Domingo RN | | | cent size); 09/10/18; 1551 | | | +--------+ + + + | Read | 06/11/18; 1524; chest; | 06/11/18 1524 by Tod | 09/10/18 1551 by | | only - | sternotomy; 09/10/18; 1551 | Melia Munoz RN | Yecenia Domingo RN | | | | | | | Incisi | | | | | on | | | | +--------+ + + + | Read | 06/11/18; 1524; Left; leg; | 06/11/18 1524 by Tod | 09/10/18 1551 by | | only - | 09/10/18; 1551 | Melia Munoz RN | Yecenia Domingo RN | | | | | | | Incisi | | | | | on | | | | +--------+ + + + | Read | 08/13/18; 1200; Left; eye; | 08/13/18 1200 by | 09/10/18 1551 by | | only - | 09/10/18; 1551 | Divine Wang RN | Yecenia Domingo RN | | | | | | | Incisi | | | | | on | | | | +--------+ + + + | Airway | Placement Date: 09/10/18; | 09/10/18 0518 by | 09/10/18 151 by | | | Placement Time: 517; Airway | Kulwinder Jackson MD | Kulwinder Jackson MD | | | Type: laryngeal mask; Placement | | | | | Check: verified by capnography; | | | | | Removal Date: 09/10/18; Removal | | | | | Time: 1516 | | | +--------+ + + + | Periph | 09/10/18; 1314; Left; Forearm; | 09/10/18 1314 by | 09/10/18 1550 by | | eral | [id number] catheter system; | LINDSAY LOWRY | Yecenia Domingo RN | | IV | 20 gauge, 1 1/4 in length; | | | | | intradermal injection, tolerated | | | | | well; no longer indicated, | | | | | removed per policy/procedure, | | | | | catheter/device intact; short | | | | | term use; 09/10/18; 1550 | | | +--------+ + + + | Airway | Placement Date: 09/10/18; | 09/10/18 1439 by | 09/10/18 1517 by | | | Placement Time: 1439; Airway | Kulwinder Jackson MD | Kulwinder Jackson MD | | | Type: oral, laryngeal mask, | | | | | cuffed, non-disposable; Size: 3; | | | | | Trauma: none; Placement Check: | | | | | exhaled CO2 detection device, | | | | | bilateral chest rise; Removal | | | | | Date: 09/10/18; Removal Time: | | | | | 1517 | | | +--------+ + + + | Read | 09/10/18; 1450; Right; eye; | 09/10/18 1450 by | 09/10/18 1551 by | | only - | 09/10/18; 1551 | Tayla Kuhn RN | Yecenia Domingo RN | | | | | | | Incisi | | | | | on | | | | +--------+ + + + documented in this encounter Social History + + + +--------+------+ | [...] | | | | | [place] [address] | | | | | | [phone] | | | | | | | | +--------+---------+ + + + | 10/28/ | Office | Cardiology | [place], | | | 2020 | Visit | | SALVATORE Moreno [address] | | | | | | [place], | | | | | | [place] [address] | | | | | | [phone] | | | | | | | | +--------+---------+ + + + documented as of this encounter Visit Diagnoses Not on filedocumented in this encounter Administered Medications + +--------+ +-------+------+------+ | Medication Order | MAR | Action | Dose | Rate | Site | | | Action | Date | | | | + +--------+ +-------+------+------+ | ePHEDrine (AKOVAZ) 50 mg/mL | Given | 09/10/20 | 10 mg | | | | injection PRN, Starting Marycarmen | | 18 2:57 | | | | | 18 at 1457, Anesthesia | | PM PST | | | | | Intra-op | | | | | | + +--------+ +-------+------+------+ +---+---+ | | | +---+---+ + +---------+ +---+---+---+ | lactated ringers (LR) infusion | New Bag | 09/10/20 | | | | | at 10-100 mL/hr, Intravenous, | | 18 2:35 | | | | | CONTINUOUS, Starting Marycarmen 09/10/18 | | PM PST | | | | | at 1300, TKO., Pre-op | | | | | | + +---------+ +---+---+---+ +---------+ +---+-------+---+ | New Bag | 09/10/20 | | 100 | | | | 18 1:13 | | mL/hr | | | | PM PST | | | | +---------+ +---+-------+---+ +---+---+ | | | +---+---+ + +-------+ +--------+---+---+ | propofol (DIPRIVAN) injection | Given | 09/10/20 | 120 mg | | | | Intravenous, PRN, Starting Marycarmen | | 18 2:38 | | | | | 09/10/18 at 1438, Anesthesia | | PM PST | | | | | Intra-op | | | | | | + +-------+ +--------+---+---+ +---+---+ | | | +---+---+ documented in this encounter"
--- OUTSIDE RECORDS SUMMARY | ~2019-08-21 | XMS | Encounter Summary ---
Demographics + + + | Address | [address] | | | [place] [address] | + + + | Home Phone [...] | [facility] | | | and Ankitana | + + + | Organization | [facility] | | | and Ankitana [...] Team Providers + +------+ + | Care Salsa Dance Instructor Name | Role | Phone | + [...] | | | and abscess | | [address] | | | | | UTI (lower | | Phone: | | | | | urinary | | [phone] | | | | | tract | | Fax: | | | | | infection) | | [phone] | | | | | Methamphetam | | | | | | | ine use | | | | | | | ([facility]) [place] | | | | | | | (acute | | | | | | | kidney | | | | | | | injury) | | | | | | | ([facility]) | | | | | [...] + + | 02/22/ | Hospital | [facility] | Marco Hale MD | Sepsis, due to | | 2015 - | Encounter | [facility] | [address] | unspecified organism | | | | [facility] | [place] [address] | ([facility]) (Primary Dx); | | 02/24/ | | [address] [place], | [phone] | Cellulitis and | | 2014 | | [place] [address] | | abscess; | | | | [phone] | [place], | Hyponatremia; UTI | | | | | [address] | (lower urinary tract | | | | | [address] | infection); [place] | | | | | [place] [address] | (acute kidney | | | | | [phone] | injury) ([facility]); | | | | | | Methamphetamine use; | | | | | Fernanda Siddiqi MD [address] | Bipolar affective | | | | | [address] | disorder, current | | | | | floor [place] | episode depression, | | | | | [address] | unspecified severity | | | | | | ([facility]); Heroin | | | | | | dependence ([facility]); | | | | | | Other [...] Siddiqi MD - 02/24/2015 11:32 AM PDT [facility] FACULTY HOSPITALIST DISCHARGE SUMMARY PATIENT NAME: Anne [...] Yolanda Lee 1-2 weeks Daily return to [place] outpatient infusion for IV Rocephin 2 g [...] Plan Improved, current EF 55%. History of FL, stent and EF of 40% 2012 at [facility] Continue Plavix, Lipitor, PHOEBE inhibitor, beta mateus, [...] this chart may have been created with [employer] voice recognition software. Occasi onal wrong-word or [...] dressing, secure with phoebe wrap. change daily. [facility] Patient Belongings Anne Marie Pichardo 1955 Patient Signature: Clinician/Dental Office Coordinator Signature: documented in this encounter Medications at [...] - 5 9:55 AM PDTPt lives in [place], has MDCR, was admitted for sepsis. notified [...] change dressings. Faxed RX for supplies to [employer]. 02/24/15 0915 Visit Information Visit Type Wound re-assessment Wound 02/22/15 Left: palm abscess;extravasation Observed Date: 02/22/15 Side: Left: Location: palm Wound Type: abscess;extravasation A dditional Comments: (c) Wound WDL Ex Wound Base pink;moist Periwound Area intact Drainage Characteristics/Odor serosanguineous Drainage Amount scant Wound Cleaning sterile normal saline Wound Interventions antimicrobial gel Dressing low-adherence/xdb-fyncuhsck-eiesigx Wound 02/22/15 0850 Right: dorsal hand abscess Observed Date/Observed Time: 02/22/15 0850 Side: Right: Orientation: dorsal Location: h and Wound Type: abscess Wound WDL Ex Wound Base moist;pink Periwound Area swelling;redness Drainage Characteristics/Odor serosanguineous Drainage Amount scant Wound Interventions antimicrobial gel Dressing dressing changed:;low-adherence/gdo-jyomrjdfz-csnxpvq Visit Summary Discipline Providing Treatment WOCN Next Wound/Ostomy Visit Date (d/c today) Skylar Becker RN - 02/24/2015 4:12 AM PDT Nursing Handoff Note Room # 922/922-01 Item for sales donor recruitment representative Comments Dx/Tx: Sepsis, BCx positive for strep [...] Stool Occurrence: 1 (02/23/15 0600) Pain Management: [place] 10/325 tab 1 po Q 4 hrs, [...] Handoff Note Room # 922/922-01 Item for sales donor recruitment representative Comments Dx/Tx: Sepsis, BCx positive for strep [...] orpatricia, MD Fernanda - 1:59 PM PDT [facility] FACULTY HOSPITALIST PROGRESS NOTE PATIENT [...] Plan Improved, current EF 55%. History of FL, stent and EF of 40% 2011 at [facility] Continue Plavix, Lipitor, PHOEBE inhibitor, beta mateus, [...] this chart may have been created with [employer] voice recognition software. Occasi onal wrong-word or sound-alike substitutions may have occurred due to the inherent meyers itations of voice recognition software. Please read the chart carefully and recognize, using context, where these substitutions have occurred Halle Moore RN - 0 02/23/2015 5:04 AM PDT Nursing Handoff Note Room # 922/922- Item for sales donor recruitment representative Comments Dx/Tx: Sepsis, 2 (+) BC for [...] Handoff Note Room # 922/922-01 Item for sales donor recruitment representative Comments Dx/Tx: Sepsis, + BC strep A; [...] be home in 1-2 days, if not correction IV antibiotics VTE Prophylaxis: (SCD or Rx?) [...] Handoff Note Room # 922/922-01 Item for sales donor recruitment representative Comments Dx/Tx: Sepsis -> IV abx, fluids [...] D/C Date: Last bowel movement: Pain Management: [place] prn Filed Vitals: 02/22/15 0936 02/22/15 1006 [...] | | | | | | [place] [address] | | | | | | [phone] | | | | | | | | +--------+---------+ + + + | 10/28/ | Office | Cardiology | Carol, | | | 2019 | Visit | | SALVATORE Moreno [address] | | | | | | [place], | | | | | | [place] [address] | | | | | | [phone] | | | | | | | [...] + + | [facility] | [address] | [place] [address] | | | [facility] | [...] + | [facility] | [address] | [place] [address] | | | [facility] | | | | | [...] + + | Glucose | 145 (H)Comment: Bolivian | 65 - 99 mg/dL | [facility] [...] + + | [facility] | [address] | [place] [address] | | | [facility] | | [...] | ANNE MARIE PICHARDO Study Date: 02/23/2015MRN: [id number] | | | [facility]DOB: 1955 | | | Age: 59 yrs Gender: FemaleHeight: | | | 68 in Weight: 139 lb | | | BSA: 1.8 m2 HR: 65 | | | Rhythm: SR.History: CAD, ACUTE FL, ICM, | | | HTN, ANXIETY, DEPRESSION.Reason [...] | |Ordering Physician: FERNANDA SIDDIQI | | |Data Collector: Farzad Parker | | |[id number]: | | | | | + + --+ + + | Procedure Note | + + | Tim, Rad Results In - 02/23/2015 12:44 PM PDT | | Adult Echo | | Report | | | | Name: ANNE MARIE PICHARDO Study Date: 02/23/2015 | | Patient Location: [place] [address] | | : 1955 Age: 59 yrs Gender: Female | | Height: 68 in Weight: 139 lb BSA: 1.8 m2 | | HR: 65 Rhythm: SR. | | History: CAD, ACUTE FL, ICM, HTN, ANXIETY, DEPRESSION. | | Reason [...] | Ordering Physician: FERNANDA SIDDIQI | | Data Collector: Farzad Parker | | [id number]: | + + Comprehensive Metabolic Panel (02/23/2015 [...] + + | Glucose | 112 (H)Comment: Bolivian | 65 - 99 mg/dL | [facility] [...] + + | [facility] | [address] | [place] [address] | | | [facility] | | | | | [...] + + | [facility] | [address] | [place] [address] | | | [facility] | | | | | [...] + + | [facility] | [address] | [place] [address] | | | [facility] | | [...] + + | [facility] | [address] | [place] [address] | | | [facility] | [...] + + | [facility] | [address] | [place] [address] | | | [facility] | | [...] + + | [facility] | [address] | [place] [address] | | | [facility] | | | | | [...] + + | [facility] | [address] | [place] [address] | | | [facility] | | | | | [...] - 1.030 | [facility] | | | [place] | | | [facility] | | | [...] + + | [facility] | [address] | [place] [address] | | | [facility] | [...] | | | | [place] [address] ON | | [facility]CRED | | | [...] + | [facility] | [address] | [place] [address] | | | [facility] | | [...] + + | [facility] | [address] | [place] [address] | | | [facility] | [...] + + | [facility] | [address] | [place] [address] | | | [facility] | [...] + + | [facility] | [address] | [place] [address] | | | [facility] | | [...] + + | [facility] | [address] | [place] [address] | | | [facility] | [...] + + | Glucose | 104 (H)Comment: Bolivian | 65 - 99 mg/dL | [facility] | | | | [facility] Association | [...] + + | [facility] | [address] | [place] [address] | | | [facility] | | [...] + + | [facility] | [address] | [place] [address] | | | [facility] | | [...] + + | [facility] | [address] | [place] [address] | | | [facility] | [...] + + | [facility] | [address] | [place] [address] | | | [facility] | | | | | [...] + + | [facility] | [address] | [place] [address] | | | [facility] | | [...] -------- ---- | | | 02/22/2015 07:08 [facility] | | | Emergency -fever, chills 02/01/2015 [...] AND UTERUS | | | 01/08/2015 21:11 [facility] | | | -Cellulitis and abscess of hand, except fingers and thumb | | | | | | 2. Unspecified essential hypertension | | | | | | 3. Old myocardial infarction | | | | | | 4. PERCUTANEOUS TRANSLUM CORON ANGIOPLASTY STATUS | | | | | | 5. Tobacco use disorder 12/26/2014 18:55 [place] | | | [facility] [place] [facility] -3- Skin Problem | | | | | | -Skin Problem | | | -Cellulitis and | | | abscess of unspecified sites | | | -Leukocytosis, | | | unspecified | | | -3 Skin Problem | | | | | | -Hyposmolality and/or hyponatremia | | | | | | -Coronary atherosclerosis of unspecified type of vessel, | | | [place] or graft | | | -Hand Swelling VISIT | | | COUNT (1 YR.) Visits Medicaid [place] Dx Location ------ | | | --------- 4 0 | | | [facility] 2 0 | | | [facility] 1 0 | | | [facility] 7 0 Total | | | Note: Visits indicate total known visits. Medicaid [place] Dx are the | | | number of primary diagnoses on the [facility]'s non-emergent dx list. | | | | | | --- Guidelines Source: [facility] Guidelines Date: | | | 09/06/2013 Care Recommendation: Care at [facility] | | | Health Past Medical & [...] unspecified | + + | Methamphetamine use ([facility]) Nondependent amphetamine or related acting sympathomimetic | [...] | | | | | | | [facility] 02/23/15 at 0800, hol ro SBP | [...] | | | 10 mEq, Oral, ONCE, [facility] 02/23/15 | | PM PDT | | [...]
--- OUTSIDE RECORDS SUMMARY | ~2019-08-21 | XMS | Encounter Summary ---
Demographics + + + | Address | [address] | | | [place] [address] | + + + | Home Phone | | + + + | Preferred Language | Unknown | + + + | Marital Status | | + + + | Church Affiliation | 1041 | + + + | Race | Unknown | + + + | Ethnic Group | Unknown | + + + Author + + + | Author | [facility] | | | and Ankitana | + + + | Organization | [facility] | [...] Providers + +------+ + | Care Administrative Medical Director Name | Role | Phone | + +------+ + | Yolanda Lee | PCP | | + +------+ + Encounter Details +--------+ + + + + | Date | Type | Department | Care Team | Description | +--------+ + + + + | 03/03/ | Hospital | [facility] | Jesse Siddiqi MD | Cellulitis and | | 2015 - | Encounter | [facility] OP | [address], | abscess of hand, | | | | INFUSION [address] floor [place], | except fingers and | | 03/05/ | | [address] [place], [place] | [place] [address] | thumb; Bacteremia | | 2015 | | [address] | [phone] | due to Streptococcus | | | | [phone] | | / Sepsis | +--------+ + [...] | | | | | [place] [address] | | | | | | [phone] | | | | | | | | +--------+---------+ + + + | 10/28/ | Office | Cardiology | Carol, | | | 2019 | Visit | | SALVATORE Moreno [address] | | | | | | [place], | | | | | | [place] [address] | | | | | | [phone] | | | | | | | [...]
--- OUTSIDE RECORDS SUMMARY | ~2019-08-21 | XMS | Encounter Summary ---
Demographics + + + | Address | [address] | | | [place] [address] | + + + | Home Phone [...] | [facility] | | | and Ankitana | + + + | Organization | [facility] | | | and Ankitana [...] Team Providers + +------+ + | Care Statement Processor Name | Role | Phone | + +------+ + PCP | Unavailable | + +------+ + Encounter Details +--------+ + + + + | Date | Type | Department | Care Team | Description | +--------+ + + + + | 03/04/ | Hospital | [facility] | Jesse Herr MD | | | 2012 | Encounter | [facility] | [address] | | | | | C[address] | [place], [place] | | | | | [address] | [address] | | | | | [place] | | | | | | [address] | | | | | | [phone] | | | +--------+ + + + [...] | | | | | | [place] [address] | | | | | | [phone] | | | | | | | | +--------+---------+ + + + | 10/28/ | Office | Cardiology | Carol, | | | 2019 | Visit | | SAL[facility] Moreno [address] | | | | | | [place], | | | | | | [place] [address] | | | | | | [phone] | | | | | | | | +--------+---------+ + + + documented as of this encounter Procedures + +--------+ + + + | Procedure Name | Priori | Date/Time | Associated Diagnosis | Comments | | | ty | | | | + +--------+ + + + | HISTORICAL IMAGING | | 03/04/2013 | | Results for this | | RESULT | | 2:35 PM | | procedure are in the | | | | PDT | | results section. | + +--------+ + + + | URINALYSIS WITH | Routin | 03/04/2013 | | Results for this | | MICROSCOPIC | e | 2:04 PM | | procedure are in the | | | | PDT | | results section. | + +--------+ + + + | CBC WITH | Routin | 03/04/2013 | | Results for this | | DIFFERENTIAL | e | 1:25 PM | | procedure are in the | | | | PDT | | results section. | + +--------+ + + + | LIPASE | Routin | 03/04/2013 | | Results for this | | | e | 1:25 PM | | procedure are in the | | | | PDT | | results section. | + +--------+ + + + | COMPREHENSIVE | Routin | 03/04/2013 | | Results for this | | METABOLIC PANEL | e | 1:25 PM | | procedure are in the | | | | PDT | | results section. | + +--------+ + + + documented in this encounter Results Historical Imaging Result (03/04/2013 2:35 PM PDT) + + | Specimen | + + | | + + + + + | Narrative | Performed At | + + + | Exam Performed Location: [facility] | MISCELANIOUS | | CT ABDOMEN AND PELVIS WITH CONTRAST CLINICAL INFORMATION: Right | LAB | | sided abdominal pain and vomiting since this morning. COMPARISON: | | | 08/19/2006 PROCEDURE: Axial images through the abdomen and | | | pelvis after the administration of 100 ml Isovue 370 intravenous | | | contrast. Multiplanar reconstructions. FINDINGS: LUNG BASES: No | | | consolidation or pleural effusion is identified. The heart size is | | | normal without pericardial effusion. ABDOMEN Liver and Biliary: | | | There are no calcified gallstones. No significant gallbladder wall | | | thickening is identified. Pancreas, Spleen and Adrenals: Images of | | | the spleen, pancreas, and adrenal glands are unremarkable. Kidneys: | | | There is no hydronephrosis or hydroureter. No renal, ureteral, or | | | bladder calculus is identified. No solid renal mass is identified. | | | ABDOMEN AND PELVIS Bowel: There is no dilatation of large or | | | small bowel to indicate obstruction. A normal appendix is | | | visualized. Numerous diverticula are seen along the sigmoid colon, | | | without evidence of diverticulitis. Vessels: No significant | | | abnormality in the aorta, its proximal branches or the iliac | | | arteries. No significant abnormality in the portal veins, mesenteric | | | veins or systemic veins. Lymph Nodes: No abdominal or pelvic | | | lymphadenopathy is identified. Peritoneum and Retroperitoneum: No | | | intraperitoneal free air, ascites or peritoneal mass. No significant | | | retroperitoneal abnormality. PELVIS Genitourinary: The bladder | | | is smooth-walled. The patient is status post hysterectomy. BODY | | | WALL Soft Tissues: No hernia, mass or hemorrhage. Bones: No acute | | | fracture or vertebral end plate destruction. No lytic or blastic | | | lesion. There is severe right and moderate left hip DJD. | | | IMPRESSION: 1. No acute intra-abdominal or intrapelvic | | | abnormality identified. Specifically a normal appendix is visualized. | | | 2. Sigmoid diverticulosis without evidence of diverticulitis. | | | 3. 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 | | + + + + + | Procedure Note | + + | Tim, Rad Conversion - 07/28/2013 9:19 PM PDT Exam Performed [facility] WITH CONTRASTCLINICAL INFORMATION:Right | | sided abdominal pain and vomiting since this | | morning.COMPARISON:08/19/2006PROCEDURE:Axial images through the abdomen and pelvis after | | theadministration of 100 ml Isovue 370 intravenous contrast.Multiplanar | | reconstructions.FINDINGS:LUNG BASES: No consolidation or pleural effusion is | | identified.The heart size is normal without pericardial effusion.ABDOMENLiver and | | Biliary: There are no calcified gallstones. Nosignificant gallbladder wall thickening | | is identified.Pancreas, Spleen and Adrenals: Images of the spleen, pancreas, andadrenal | | glands are unremarkable.Kidneys: There is no hydronephrosis or hydroureter. No | | renal,ureteral, or bladder calculus is identified. No solid renal massis | | identified.ABDOMEN AND PELVISBowel: There is no dilatation of large or small bowel to | | indicateobstruction. A normal appendix is visualized. Numerousdiverticula are seen | | along the sigmoid colon, without evidence ofdiverticulitis.Vessels: No significant | | abnormality in the aorta, its proximalbranches or the iliac arteries. No significant | | abnormality in theportal veins, mesenteric veins or systemic veins.Lymph Nodes: No | | abdominal or pelvic lymphadenopathy is identified.Peritoneum and Retroperitoneum: No | | intraperitoneal free air,ascites or peritoneal mass. No significant | | retroperitonealabnormality.PELVISGenitourinary: The bladder is smooth-walled. The | | patient is statuspost hysterectomy.BODY WALLSoft Tissues: No hernia, mass or | | hemorrhage.Bones: No acute fracture or vertebral end plate destruction. Nolytic or | | blastic lesion. There is severe right and moderate lefthip DJD.IMPRESSION:1. No acute | | intra-abdominal or intrapelvic abnormality identified.Specifically a normal appendix is | | visualized.2. Sigmoid diverticulosis without evidence of diverticulitis.3. Severe | | right and moderate left hip DJD. | |ureteral, or bladder calculus is identified. No solid renal mass | |is identified. | | | |ABDOMEN AND PELVIS | |Bowel: There is no dilatation of large or small bowel to indicate | |obstruction. A normal appendix is visualized. Numerous | |diverticula are seen along the sigmoid colon, without evidence of | |diverticulitis. | |Vessels: No significant abnormality in the aorta, its proximal | |branches or the iliac arteries. No significant abnormality in the | |portal veins, mesenteric veins or systemic veins. | |Lymph Nodes: No abdominal or pelvic lymphadenopathy is identified. | |Peritoneum and Retroperitoneum: No intraperitoneal free air, | |ascites or peritoneal mass. No significant retroperitoneal | |abnormality. | | | |PELVIS | |Genitourinary: The bladder is smooth-walled. The patient is status | |post hysterectomy. | | | |BODY WALL | |Soft Tissues: No hernia, mass or hemorrhage. | |Bones: No acute fracture or vertebral end plate destruction. No | |lytic or blastic lesion. There is severe right and moderate left | |hip DJD. | | | |IMPRESSION: | | | |1. No acute intra-abdominal or intrapelvic abnormality identified. | |Specifically a normal appendix is visualized. | |2. Sigmoid diverticulosis without evidence of diverticulitis. | | | |3. 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 | + + + +---------+ + + | Performing | Address | City/State/Zipcode | Phone Number | | Organization | | | | + +---------+ + + | [facility] | | | [phone] | + +---------+ + + | [facility] | | | [phone] | + +---------+ + + Urinalysis With Microscopic (03/04/2013 2:04 PM PDT) + + + + + [...] + + + + | Glucose, | 50 (A) | Negative mg/dL | [facility] | | | Urine | | | [facility] | | | | | [facility] | | + + + + + + | Bilirubin, | Negative | Negative | [facility] | | | Urine | | | [facility] | | | | | | [facility] | | + + + + + + | Ketones, | Trace (A) | Negative mg/dL | [facility] | | | Urine | | | [facility] | | | | | | [facility] | | + + + + + + | Specific | 1.032 (H) | 1.001 - 1.030 | [facility] | | | [place] | | | [facility] | | [...] | | | Urine | | | [facility] | | | | | | [facility] | | + + + + + + | Urobilinoge | <2.0 | <2.0 mg/dL | [facility] | | | n, Urine | | | [facility] | | | | | | [facility] | | + + + + + + | Nitrite, | Negative | Negative | [facility] | | | Urine | | | [facility] | | | | | | [facility] | | + + + + + + | Blood, | Small (A) | Negative | [facility] | | | Urine | | | [facility] | | | | | | [facility] | | + + + + + + | Leukocyte | Large (A) | Negative | [facility] | | | Esterase, | | | [facility] | | | | | | [facility] | | + + + + + + | WBC UA | 4 | <6 /hpf | [facility] | | | | | | [facility] | | | | | | [facility] | | + + + + + + | RBC UA | 12 (H) | <6 /hpf | [facility] | | | | | | [facility] | | | | | | [facility] | | + + + + + + | SQUAMOUS | Many | /lpf | [facility] | | | EPITHELIAL | | | [facility] | | | | | | [facility] | | + + + + + + | MUCUS UA | Present (A) | None seen /lpf | [facility] | | | | | [...] + | [facility] | [address] | [place] [address] | | | [facility] | | | | | [facility] | | | | + + + + + CBC with Differential (03/04/2013 1:25 PM PDT) + + + + + + | Component | Value | Ref Range | Performed | Pathologist | | | | | At | Signature | + + + + + + | WBC | 6.4 | 4.0 - 11.0 K/uL | [facility] | | | | | | [facility] | [facility] | [facility] | | + + + + + + | RBC | 5.63 (H) | 3.80 - 5.20 | [facility] | | | | | M/uL | [facility] | | | | | [facility] | | + + + + + + | Hemoglobin | 16.6 (H) | 11.6 - 15.5 | [facility] | | | | | g/dL | [facility] | | | | | [facility] | | + + + + + + | Hematocrit | 49.9 (H) | 35.0 - 46.0 % | [facility] | | | | | | [facility] | | [facility] | | [facility] | | + + + + + + | MCV | 88.7 | 80.0 - 100.0 fL | [facility] | | | | | | [facility] | | + + + + + + | MCH | 29.5 | 27.0 - 34.0 pg | [facility] | | | | | | [facility] | | [facility] | | [facility] | | + + + + + + | MCHC | 33.3 | 32.0 - 35.5 | [facility] | | | | | g/dL | [facility] | | | | | [facility] | | + + + + + + | RDW-CV | 14.3 | 11.0 - 15.0 % | [facility] | | | | | | [facility] | | [facility] | | | [facility] | | + + + + + + | Platelet | 295 | 150 - 400 K/uL | [facility] | | | Count | | | [facility] | [facility] | | | | | | [facility] | | + + + + + + | Differentia | Automated | | [facility] | | | l Type | | | [facility] | | | | | | [facility] | | + + + + + + | % | 88.2 (H) | 40.0 - 80.0 % | [facility] | | | Neutrophils | | | [facility] | | | | | | [facility] | | + + + + + + | % | 9.4 (L) | 15.0 - 45.0 % | [facility] | | | Lymphocytes | | | [facility] | | | | | | [facility] | | + + + + + + | % Monocytes | 1.6 | 0.0 - 12.0 % | [facility] | | | | | | [facility] | | | | | | [facility] | | + + + + + + | % | 0.2 | 0 - 7 % | [facility] | | | Eosinophils | | | [facility] | | | | | | [facility] | | + + + + + + | % Basophils | 0.6 | 0 - 2 % | [facility] | | | | | | [facility] | | | | | | [facility] | | + + + + + + | Absolute | 5.70 | 2.0 - 7.3 K/uL | [facility] | | | Neutrophils | | | [facility] | | | | | | [facility] | | + + + + + + | Absolute | 0.60 (L) | 1.0 - 3.4 K/uL | [facility] | | | Lymphocytes | | | [facility] | | | | | | [facility] | | + + + + + + | Absolute | 0.10 | 0.0 - 0.8 K/uL | [facility] [...] + + | Performing | Address | City/State/[place] | Phone Number | | Organization | | | | + + + + + | [facility] | [address] | [place] [address] | | | [facility] | | | | | [facility] | | | | + + + + + Lipase (03/04/2013 1:25 PM PDT) + +-------+ + + + | Component | Value | Ref Range | Performed | Pathologist | | | | | At | Signature | + +-------+ + + + | Lipase | 88 | 70 - 350 U/L | [facility] | | | | [...] + | [facility] | [address] [facility] | [place] [address] | | | [facility] | | | | | LAB[facility]ATORY | | | | + + + + + Comprehensive Metabolic Panel (03/04/2013 1:25 PM PDT) + + + + + + | Component | Value | Ref Range | Performed | Pathologist | | | | | At | Signature | + + + + + + | Na | 140 | 135 - 146 | [facility] | | | | | mmol/L | [facility] | | | | | | [facility] | | + + + + + + | K | 4.3 | 3.6 - 5.2 | [facility] | [...] + + + + | CO2 | 20 (L) | 21 - 32 mmol/L | [facility] [...] + + + + | Creatinine | 0.70 | 0.40 - 1.00 | [facility] | | | | | mg/dL | [facility] | | | | | | [facility] | | + + + + + + | Calcium | 9.7 | 8.5 - 10.5 | [facility] | | | | | mg/dL | [facility] | | | | | | [facility] | | + + + + + + | Total | 8.6 (H) | 6.3 - 8.0 g/dL | [facility] | | | Protein | | | [facility] | | | | | | [facility] | | + + + + + + | Albumin | 4.4 | 3.5 - 5.0 g/dL | [facility] | | | | | | [facility] | | | | | | [facility] | | + + + + + + | Bilirubin | 0.3 | 0.1 - 1.5 mg/dL | [facility] | | | Total | | | [facility] | | | | | | [facility] | | + + + + + + | Alkaline | 260 (H) | 40 - 135 U/L | [facility] | | | Phosphatase | | | [facility] | | | | | | [facility] | | + + + + + + | AST | 49 (H) | 5 - 40 U/L | [facility] | | | | | | [facility] | | | | | | [facility] | | + + + + + + | ALT | 55 | 10 - 65 U/L | [facility] | | | | | | [facility] | | | | | | [facility] | | + + + + + + | Anion Gap | 13 | 5 - 16 mmol/L | [facility] | | | | | | [facility] | [facility] | | | | | | [facility] | | + + + + + + | Estimated | >60Comment: GFR <60: | >60 | [facility] | | | GFR | Chronic kidney disease, | ml/min/1.73m2 | [facility] | | | | if found over a 3 month | | HOSPITAL | | | | period.GFR <15: Kidney | | LABORATORY | | | | failure.For | | | | | | Americans, multiply the | | | | | | calculated GFR by 1.210 | | | | + + + + + + + + | Specimen | + + | | + + + + + + + | Performing | Address | City/State/Zipcode | Phone Number | | Organization | | | | + + + + + | [facility] | [address] [facility] | [place] [address] | | | [facility] | | | | | LABORATORY | | | | + + + + + documented in this encounter Visit Diagnoses Not on filedocumented in this encounter"
--- OUTSIDE RECORDS SUMMARY | ~2019-08-21 | XMS | Encounter Summary ---
Demographics + + + | Address | [address] | | | [place] [address] | + + + | Home Phone | | + + + | Preferred Language | Unknown | + + + | Marital Status | | + + + | Caodaism Affiliation | 1041 | + + + | Race | Unknown | + + + | Ethnic Group | Unknown | + + + Author + + + | Author | [facility] | | | and [place] | + + + | Organization | [facility] | | | and [...] Team Providers + +------+ + | Care Continuous Process Machine Operator Name | Role | Phone | + +------+ + | Yolanda Lee | PCP | | + +------+ + Reason for Visit + + + | Reason | Comments | + + + | ED Follow-up | | + + + Encounter Details +--------+ + + + + | Date | Type | Department | Care Team | Description | +--------+ + + + + | 05/04/ | Telephone | [facility] | Steph Smith | ED Follow-up | | 2017 | | [facility] | L, Technologist | | | | | [address] | | | | | | [facility] | | | | | | [place] | | | | | | [address] | | | | | | [phone] | | | +--------+ + + + [...] | | | | | [place] [address] | | | | | | [phone] | | | | | | | | +--------+---------+ + + + | 10/28/ | Office | Cardiology | Carol, | | | 2019 | Visit | | SAL[place]AT[facility] Moreno [address] | | | | | | [place] | | | | | | [place] [id number] | | | | | | [phone] | | | | | | | [...]
--- OUTSIDE RECORDS SUMMARY | ~2019-08-21 | XMS | Encounter Summary ---
Demographics + + + | Address | [address] | | | [place] [address] | + + + | Home Phone | | + + + | Preferred Language | Unknown | + + + | Marital Status | | + + + | Adventist Affiliation | [id number] | + + + | Race | Unknown | + + + | Ethnic Group | Unknown | + + + Author + + + | Author | [facility] | | | and Ankitana | + + + | Organization | [facility] | | | and Ankitana [...] Team Providers + +------+ + | Care Group Home Supervisor Name | Role | Phone | + +------+ + | Yolanda Richmond | PCP | | + +------+ + Reason for Visit + + + | Reason | Comments | + + + | Hip Pain | | + + + Auth/Cert +--------+--------+ + + + + | Status | Reason | Specialty | Diagnoses / | Referred By | Referred To | | | | | Procedures | Contact | Contact | +--------+--------+ + + + + | | | | | | | +--------+--------+ + + + + Encounter Details +--------+ + + + + | Date | Type | Department | Care Team | Description | +--------+ + + + + | 08/25/ | Emergency | [facility] | Kike Moralez, | Leukocytosis, | | 2016 - | | [facility] | MD [address] | unspecified type | | | | NEUROLOGY [address] | [place] [address] | (Primary Dx); Closed | | 08/28/ | | [place] | [phone] | pelvic ring | | 2016 | | [address] | | fracture, with | | | | [phone] | Pablo Booth | routine healing, | | | | | Claudia, DO [address] | subsequent | | | | | [address] [place], | encounter; Acute | | | | | [place] [address] | bronchitis, | | | | | [phone] | unspecified | | | | | | organism; Bipolar | | | | | Maite Delacruz MD | affective disorder | | | | | [address] | in remission (HCC); | | | | | [place], [place] | Ischemic | | | | | [id number] | cardiomyopathy; | | | | | | Personal history of | | | | | | tobacco use, | | | | | | presenting hazards | | | | | | to health; Elevated | | | | | | C-reactive protein | | | | | | (CRP); Elevated | | | | | | procalcitonin; | | | | | | Positive D dimer; | | | | | | Normocytic anemia; | | | | | | Primary | | | | | | osteoarthritis | | | | | | involving multiple | | | | | | joints; Tobacco | | | | | | abuse; Iron | | | | | | deficiency | +--------+ + + + + Social [...] + + + | Blood Pressure | 135/69 | 08/28/2016 7:00 AM | | | | | PST | | + + + + + | Pulse | 78 | 08/28/2016 7:00 AM | | | | | PST | | + + + + + | Temperature | 36.9 C (98.4 F) | 08/28/2016 7:00 AM | | | | | PST | | + + + + + | Respiratory Rate | 18 | 08/28/2016 7:00 AM | | | | | PST | | + + + + + | Oxygen Saturation | 98% | 08/28/2016 7:00 AM | | | | | PST | | + + + + + | Inhaled Oxygen | - | - | | | Concentration | | | | + + + + + | Weight | 63.5 kg (140 lb) | 08/26/2016 12:45 AM | | | | | PST | | + + + + + | Height | 157.5 cm (5' 2") | 08/25/2016 2:46 PM | | | | | PST | | + + + + + | Body Mass Index | 25.61 | 08/25/2016 2:46 PM | | | | | PST [...] documented as of this encounter Discharge Summaries Pablo Booth DO - 08/28/2016 7:31 AM PST PATIENT NAME: Anne Marie Pichardo DATE OF : 1955 DATE OF ADMISSION: 08/25/2016 DATE OF DISCHARGE: 08/28/16 PRIMARY CARE PHYSICIAN: SALVATORE Ventura ISSUES REQUIRING FOLLOW UP AFTER DISCHARGE: Treatment for osteoporosis - consider addition of a bisphosphonate Referral to Orthopedic Surgery for evaluation of severe bilateral hip osteoarthritis (sympt omatic) Repeat CRP and PCT at next office visit Referral to GI for evaluation of severe iron deficiency anemia FOLLOW UP: SALVATORE Ventura [address] [facility] [phone] Go to next available appointment [facility] [address] [facility] [address] DISCHARGE DISPOSITION: Home with Home Health CONSULTANTS THIS ADMISSION: None HOSPITAL COURSE: Ms. Pichardo is a 61-year-old female admitted to [facility] on N ovember 11 for a left inferior and superior pubic rami fractures and a right sacral alar fra cture. She was discharged to home November 15 with home health services and has reportedly done poorly with uncontrolled pain. Home Health staff advised readmission for evaluation for acute inpatient rehabililtation, but she was sent to [facility] of [facility]. She was de nied admission to [facility]. She was noted to have a marked leukocytosis and elevated CRP of unclear significance that i mproved or resolved spontaneously. She received IV iron therapy for advanced iron deficiency . She feels improved and will discharge to home with home health. DISCHARGE DIAGNOSES: Active Hospital Problems Diagnosis Closed pelvic ring fracture, with routine healing, subsequent encounter Positive D dimer Elevated C-reactive protein (CRP) Elevated procalcitonin Bipolar disorder Iron deficiency Normocytic anemia Primary osteoarthritis involving multiple joints Tobacco abuse Resolved Hospital Problems Diagnosis Leukocytosis Ischemic cardiomyopathy DISCHARGE EXAM: Temp: [36.3 C (97.3 F)-36.9 C (98.5 F)] 36.9 C (98.4 F) Pulse: [76-82] 78 Resp: [18] 18 BP: (118-156)/(63-83) 135/69 mmHg 98 % RA Constitutional: She is oriented to person, place, and time. She appears well-developed and well-nourished. No distress. HENT: Head: Normocephalic and atraumatic. Nose: Nose normal. Mouth/Throat: Oropharynx is clear and moist. No oropharyngeal exudate. Few remaining teeth Eyes: Conjunctivae and EOM are normal. Pupils are equal, round, and reactive to light. Righ t eye exhibits no discharge. Left eye exhibits no discharge. No scleral icterus. Neck: Normal range of motion. Neck supple. No JVD present. No tracheal deviation present. N o thyromegaly present. Cardiovascular: Normal rate, regular rhythm and intact distal pulses. Exam reveals no gal lop and no friction rub. Murmur (very soft systolic at apex) heard. Pulmonary/Chest: Effort normal and breath sounds normal. No respiratory distress. She has n o wheezes. She has no rales. Abdominal: Soft. Bowel sounds are normal. She exhibits no distension and no mass. There is no tenderness. There is no guarding. No hernia. Genitourinary: Andino in place Musculoskeletal: Normal range of motion. She exhibits no edema or tenderness. Neurological: She is alert and oriented to person, place, and time. No cranial nerve defici t. She exhibits normal muscle tone. Coordination normal. Skin: Skin is warm and dry. No rash noted. She is not diaphoretic. No erythema. No pallor. Psychiatric: She has a normal mood and affect. Her behavior is normal. Judgment and thought content normal. Nursing note and vitals reviewed. DISCHARGE MEDICATIONS: Discharge Medications New Medications Details adult multivitamin with minerals/iron Tabs Take 1 tablet by mouth Daily. atorvaSTATin 40 mg tablet Take 1 tablet by mouth nightly. aka: LIPITOR calcium-vitamin D 500 mg-200 units per tablet Take 2 tablets by mouth 3 times daily (with meals). aka: OSCAL oxyCODONE 5 mg tablet Take 1-2 tablets by mouth every 4 hours as needed for Pain. aka: ROXICODONE Polysaccharide Iron Complex 50 MG Caps Take 1 capsule by mouth 3 times daily (with meals). traMADol 50 mg tablet Take 2 tablets by mouth every 6 hours as needed for Pain. aka: ULTRAM Unchanged Medications Details aspirin 81 mg EC tablet Take 81 mg by mouth Daily. carvedilol 6.25 mg tablet Take 6.25 mg by mouth 2 times daily (with breakfast & dinner). aka: COREG ergocalciferol 50,000 units capsule Take 50,000 Units by mouth Once a week. aka: VITAMIN D-2 FLUoxetine 20 mg capsule Take 20 mg by mouth Daily. aka: PROzac HYDROcodone-acetaminophen 5-325 mg per tablet Take 1-2 tablets by mouth every 4 hours as needed for Pain. aka: NORCO hydrOXYzine hydrochloride 25 mg tablet Take 25 mg by mouth nightly as needed for Itching or Anxiety. aka: ATARAX lisinopril 20 mg tablet Take 20 mg by mouth Daily. aka: PRINIVIL, ZESTRIL Q-PAP 500 mg tablet Generic drug: acetaminophen Take 500 mg by mouth every 6 hours as needed for Pain. QUEtiapine 100 mg tablet Take 100 mg by mouth nightly. aka: SEROquel Discontinued Medications permethrin 5% cream aka: ELIMITE Immunization History Administered Date(s) Administered INFLUENZA PF 18 Y OR >,TRIVALENT RECOMBINANT 12/27/2014 INFLUENZA, UNSPECIFIED FORMULATION 08/19/2016 PROCEDURES THIS ADMISSION: None PERTINENT LAB AND IMAGING RESULTS: Lab Results Component Value Date WBC 8.8 08/28/2016 HGB 9.6* 08/28/2016 HCT 29.5* 08/28/2016 MCV 88.0 08/28/2016 PLT 403* 08/28/2016 Lab Results Component Value Date CREA 0.82 08/25/2016 BUN 19 08/25/2016 NA 133* 08/25/2016 K 4.7 08/25/2016 CL 99 08/25/2016 CO2 27 08/25/2016 Lab Results Component Value Date ALT 26 02/24/2015 AST 31 02/24/2015 ALKPHOS 303* 02/24/2015 BILITOT 0.3 02/24/2015 Ref. Range 08/26/2016 09:06 IRON Latest Ref Range: 30-180 ug/dL <10 (L) TIBC Latest Ref Range: 260-490 ug/dL 309 Iron Saturation Latest Ref Range: 15-50 % Unable to report ... Ref. Range 08/25/2016 19:47 08/27/2016 05:30 PROCALCITONIN Latest Ref Range: <0.1 ng/mL 0.61 (H) 0.59 (H) Ref. Range 08/26/2016 06:12 08/27/2016 05:30 08/28/2016 03:21 CRP Latest Ref Range: 0.0-1.5 mg/dL 14.0 (H) 17.7 (H) 11.9 (H) Ref. Range 08/26/2016 09:06 IRON Latest Ref Range: 30-180 ug/dL <10 (L) TIBC Latest Ref Range: 260-490 ug/dL 309 Iron Saturation Latest Ref Range: 15-50 % Unable to report ... Ref. Range 08/25/2016 16:48 Color, UA Unknown Yellow Clarity, UA Unknown Clear Specific [place] Latest Ref Range: 1.001-1.030 1.015 PH UA Latest Ref Range: 5.0-7.5 7.0 Glucose, UA Latest Ref Range: Negative mg/dL Negative Ketones, UA Latest Ref Range: Negative mg/dL Negative Protein, UA Latest Ref Range: Negative mg/dL Negative Blood, UA Latest Ref Range: Negative Negative Bilirubin, UA Latest Ref Range: Negative Negative Nitrite, UA Latest Ref Range: Negative Negative UROBILINOGEN UA Latest Ref Range: <2.0 mg/dL <2.0 Leukocyte esterase, UA Latest Ref Range: Negative Negative WBC UA Latest Ref Range: <6 /hpf <1 RBC UA Latest Ref Range: <6 /hpf 2 Squamous epithelial, UA Latest Units: /lpf Few BACTERIA UA Latest Units: /hpf None seen BCX x 2 - no growth Specimen Source Nasopharyngeal RESULT Negative for all organisms tested. RESULT The following organisms were tested for by PCR: Adenovirus, Bordetella pertussis, Chlamy dophila pneumoniae, Coronavirus (HKU1, NL63, 229E and OC43), Influenza A (H1, H1 2009 and H3 ), Influenza B, Metapneumovirus, Mycoplasma pneumoniae, Parainfluenza (1, 2, 3 and 4), Respiratory Syncytial Virus and Rhinovirus/Enterovirus. Status 08/26/2016 Final IMPRESSION: Negative chest. PELVIS ONE OR TWO VIEWS IMPRESSION: 1. Low bone density with questionable left superior and inferior pubic rami fractures. Inlet and outlet views may be appropriate for confirmation if necessary. 2. Severe, right greater than left hip joint osteoarthrosis, significantly progressive compared to 09/27/2013 comparison. BILATERAL LOWER EXTREMITY VENOUS EXAM FOR DVT IMPRESSION: There is no evidence to suggest deep or superficial venous thrombus in either lower extremity. Echocardiogram: 1. Normal biventricular chamber size and systolic function. The estimated LVEF is 55%. 2. Normal valvular function, no vegetations are seen. 3. Pulmonary pressure could not be estimated. CONDITION AT DISCHARGE: Good / Stable Face to face encounter date 08/27/2016 Primary diagnosis for home health Pelvic ring fracture, with routine healing, subsequent encounter Services needed Physical Therapy Occupational Therapy Physical Therapy Mobility & home safety/fall prevention/durable medical equipment needs & training/caregiver training Home strengthening/balance program/functional training/modalities/pain management/home exercise program Occupational Therapy Eval/instruct home saftey/durable medical equipment needs & trainin g/functional training/activities of daily living/instrumental activities of daily living/str engthening/home exercise program/caregiver training Eval/instruct energy conservation/breathing exercises Eval/instruct adaptive devices Clinical findings that support homebound status Needs assistance of another individual Ambulates limited distance of 50 with assistance of a walker Currently walker dependent with painful ambulation Patient IS homebound because he/she cannot leave home without the assistance of another individual and leaving home requires a considerable and taxing effort. Patient needs the ass istance of another individual to leave home because High fall risk due to gait instability a nd muscle weakness caused by: (Use Comment) Name of provider to follow patient YOLANDA RICHMOND Ernestine Inventory Control/Shipping Receiving needed No TIME SPENT ON DISCHARGE: greater than 30 minutes / Observation Stay Electronically signed by: Pablo Booth DO 08/28/2016 18:03Electronically si gned by Pablo Booth DO at 08/28/2016 6:03 PM PSTdocumented in this encount er Discharge Instructions AttachmentsThe following attachments cannot be sent through Care Everywhere.ANEMIA, IRON-DE FICIENCY (ADULT) (IRISH)OSTEOPOROSIS, LIVING WITH: PREVENTING FRACTURES (IRISH)documente d in this encounter Medications at Time of [...] documented as of this encounter Progress Notes Rhona Ledesma RN - 08/27/2016 4:53 PM PSTAcknowledge [facility] referral. Met with pt and G-D tr. Pt to stay with [facility] [place] [id number] [facility] # [phone]. Electronically signed by: Rhona Ledesma RN 08/27/2016 16:54 Steph Artis LICSW - 08/27/2016 4:31 PM P STSW: On-going dc planning, chart reviewed. Pt not accepted by [facility]. Therapies have cleared pt safe to dc home with family and HH. Pt reports she lives with her g'son however he will n ot be home until Friday. Pt has a friend she is able to stay with a friend starting tomorrow . Discussed HH. Pt agreeable. Provided list of available agencies. Referral made to [facility] per pt's choice. Due to pt's past drug use, [facility] will need to have administer permission to accep t. SW will follow. aLucero pratt RN - 08/27/2016 3:56 PM PSTPt. Has discharge order, but unable to go due to lack of someone to stay w/ her. Medicare Advance Beneficiary Notice of Noncoverage letter issued. Pt voiced understanding. Copy of letter left in room for pt. enzPablo, DO - 1 10/27/2015 12:37 PM PST Patient: Anne Marie Pichardo Date of : 1955 Admit Date: 08/25/2016 Date of Service: 08/27/2016 PCP: Yolanda Richmond HOSPITALITY INTERN Hospital Day: Hospital Course: Ms. Pichardo is a 61-year-old female admitted to [facility] on N ov 11 for a left inferior and superior pubic rami fractures and a right sacral alar fra cture. She was discharged to home August 20 with home health services and has reportedly done poorly with uncontrolled pain. Home Health staff advised readmission for evaluation for acute inpatient rehabililtation, but she was sent to [facility] instead of [facility]. She was noted to have a marked leukocytosis and elevated CRP of unclear significance. Assessment and Plan: Ms. Pichardo's chart was reviewed in detail, and she was seen and examined by me. Assessment of active problems addressed today: Active Hospital Problems Diagnosis Closed pelvic ring fracture, with routine healing, subsequent encounter: she was sent h ome with home health for continued PT from [facility] - await repeat PT / OT evaluations here ([facility] evaluation pending) - pain control is to be accomplished without IV narcotics, she states her pain is reasonabl y controlled at this time Positive D dimer: negatove for DVT with bilateral LE US Elevated C-reactive protein (CRP): still elevated Elevated procalcitonin: mild elevation (no change in 24 hours) Leukocytosis: declining spontaneously The above three diagnoses are concerning for an underlying occult infection or some other t ype of inlfammatory response - as above, DVT negative, BCX x 2 pending (no growth to date) -the patient is afebrile and does not appear acutely ill -CXR and UA unremarkable - respiratory pathogens panel negative -echo per initial report grossly negative for valvular vegetations Bipolar disorder: continued on home Rx's Normocytic anemia with severe iron deficiency: anemia is moderate - PO MVI added - IV iron while here Primary osteoarthritis involving multiple joints: - severe, right greater than left, hip joint osteoarthrosis, significantly progressive comp ared to 09/27/2013 comparison; probably contributing to her chronic pain and decreased mobil ity - she will need outpatient referral to Orthopedic Surgery for evaluation for elective BRIDGET Acute bronchitis: ruled out, no respiratory issues noted Ischemic cardiomyopathy: preserved LVEF of 55% per last echo with focal hypokinesis - she is on ASA / beta mateus / PHOEBE-I; statin therapy added today - repeat echo report pending at this time Tobacco abuse: nicotine patch in place to control cravings Resolved Hospital Problems Diagnosis No resolved problems to display. CODE STATUS: Full Code DVT prophylaxis: enoxaparin Subjective: CC: mild pelvic pain - states she feels better Ms. Pichardo is in a good mood today. No new issues. OT recommended [facility] / PT possibly home - awaiting repeat evaluations and input from [facility] (can she get HH if not accepted by [facility]?) Review of Systems Constitutional: Positive for fever (low grade - Tmax 100.8 F). Negative for chills, malaise /fatigue and diaphoresis. HENT: Negative. Eyes: Negative. Negative for blurred vision. Respiratory: Negative. Negative for cough, hemoptysis, sputum production, shortness of narcisa ath and wheezing. Cardiovascular: Negative. Negative for chest pain, palpitations and leg swelling. Gastrointestinal: Negative. Negative for heartburn, nausea, vomiting and abdominal pain. Genitourinary: Negative. Negative for dysuria and hematuria. Andino placed last evening - unclear indications Musculoskeletal: Positive for myalgias and back pain. Pelvic pain Skin: Negative. Negative for rash. Neurological: Positive for weakness. Negative for dizziness, tingling, tremors, sensory mio nge, focal weakness and headaches. Psychiatric/Behavioral: Negative. Objective: Vitals Current Average / Min / Max Temp 36.9 C (98.5 F) Temp Min: 36.2 C (97.2 F) Max: 36.9 C (98.5 F) BP 127/68 mmHg BP Min: 118/65 Max: 132/76 HR 79 Pulse Av.3 Min: 76 Max: 79 RR 18 Resp Av Min: 18 Max: 18 Sats 96 % SpO2 Min: 96 % Max: 97 % room air I/O last 3 completed shifts: In: 960 [P.O.:960] Out: 2461 [Urine:2460; Stool:1] Wt Readings from Last 3 Encounters: 08/26/16 63.504 kg (140 lb) 05/25/15 68.04 kg (150 lb) 03/12/15 68.04 kg (150 lb) Physical Exam Constitutional: She is oriented to person, place, and time. She appears well-developed and well-nourished. No distress. HENT: Head: Normocephalic and atraumatic. Nose: Nose normal. Mouth/Throat: Oropharynx is clear and moist. No oropharyngeal exudate. Few remaining teeth Eyes: Conjunctivae and EOM are normal. Pupils are equal, round, and reactive to light. Righ t eye exhibits no discharge. Left eye exhibits no discharge. No scleral icterus. Neck: Normal range of motion. Neck supple. No JVD present. No tracheal deviation present. N o thyromegaly present. Cardiovascular: Normal rate, regular rhythm and intact distal pulses. Exam reveals no gall op and no friction rub. Murmur (very soft systolic at apex) heard. Pulmonary/Chest: Effort normal and breath sounds normal. No respiratory distress. She has n o wheezes. She has no rales. Abdominal: Soft. Bowel sounds are normal. She exhibits no distension and no mass. There is no tenderness. There is no guarding. No hernia. Genitourinary: Andino in place Musculoskeletal: Normal range of motion. She exhibits no edema or tenderness. Neurological: She is alert and oriented to person, place, and time. No cranial nerve defici t. She exhibits normal muscle tone. Coordination normal. Skin: Skin is warm and dry. No rash noted. She is not diaphoretic. No erythema. No pallor. Psychiatric: She has a normal mood and affect. Her behavior is normal. Judgment and thought content normal. Nursing note and vitals reviewed. Active Lines PIV Line Peripheral IV Line - Single Lumen 08/25/167 less than 1 day Peripheral IV Line - Single Lumen 08/25/16 2216 Left Lateral Forearm [id number]-smhlxt [place] ter system 22 gauge;1 in length less than 1 day Active Tubes/Drains No matching active lines, drains, or airways MEDICATIONS: SCHEDULED: acetaminophen 650 mg Oral 4x Daily adult multivitamin with minerals/iron 1 tablet Oral Daily amoxicillin-clavulanate 1 tablet Oral BID aspirin 81 mg Oral Daily atorvaSTATin 40 mg Oral Nightly calcium-vitamin D 2 tablet Oral TID carvedilol 6.25 mg Oral BID docusate-senna 2 tablet Oral BID enoxaparin 40 mg Subcutaneous Daily ergocalciferol 50,000 Units Oral Weekly FLUoxetine 20 mg Oral Daily iron sucrose 400 mg Intravenous Daily lisinopril 20 mg Oral Daily nicotine 1 patch Transdermal Daily oxyCODONE 10 mg Oral 3 times per day polyethylene glycol 17 g Oral Daily QUEtiapine 100 mg Oral Nightly IV: PRN: hydrOXYzine pamoate, ketorolac, ondansetron, oxyCODONE, traMADol 24 HOUR LABS: All pertinent labs and imaging have been reviewed. Please refer to the Assessment and Plan for details on management. Recent Results (from the past 24 hour(s)) Respiratory pathogen panel, NAAT Result Value Ref Range Specimen Source Nasopharyngeal RESULT Negative for all organisms tested. RESULT The following organisms were tested for by PCR: Adenovirus, Bordetella pertussis, Chlamyd ophila pneumoniae, Coronavirus (HKU1, NL63, 229E and OC43), Influenza A (H1, H1 2009 and H3) , Influenza B, Metapneumovirus, Mycoplasma pneumoniae, Parainfluenza (1, 2, 3 and 4), Respiratory Syncytial Virus and Rhinovirus/Enterovirus. Status 08/26/2016 Final Drugs of Abuse, Screen, Urine Result Value Ref Range Amphetamine Screen, Urine Negative Negative Methamphetamine Screen, Urine Negative Negative Barbiturates Screen, Urine Negative Negative Benzodiazepines Screen, Urine Negative Negative Cocaine Metabolites, Ur Negative Negative Methadone Screen, Urine Positive (A) Negative Opiate Screen, Urine Positive (A) Negative Phencyclidine Screen, Urine Negative Negative TRICYCLICS UR. Negative Negative Cannabinoids Screen, Urine Positive (A) Negative CBC with Differential Result Value Ref Range WBC 11.2 (H) 3.8 - 11.0 K/uL RBC 3.26 (L) 3.70 - 5.10 M/uL Hgb 9.6 (L) 11.3 - 15.5 g/dL Hct 28.4 (L) 34.0 - 46.0 % MCV 87.0 80.0 - 100.0 fL MCH 29.5 27.0 - 34.0 pg MCHC 33.9 32.0 - 35.5 g/dL RDW-CV 14.7 11.0 - 15.5 % Platelet Count 390 150 - 400 K/uL Differential Type Automated % Neutrophils 77.9 (H) 40.0 - 75.0 % % Lymphocytes 8.2 (L) 15.0 - 48.0 % % Monocytes 6.4 0.0 - 12.0 % % Eosinophils 7.2 (H) 0.0 - 7.0 % % Basophils 0.3 0.0 - 2.0 % Absolute Neutrophils 8.80 (H) 1.90 - 7.40 K/uL Absolute Lymphocytes 0.90 (L) 1.00 - 3.90 K/uL Absolute Monocytes 0.70 0.00 - 0.80 K/uL Absolute Eosinophils 0.80 (H) 0.00 - 0.50 K/uL Absolute Basophils 0.00 0.00 - 0.10 K/uL C-Reactive Protein Result Value Ref Range CRP 17.7 (H) 0.0 - 1.5 mg/dL Procalcitonin Result Value Ref Range Procalcitonin 0.59 (H) <0.1 ng/mL BILATERAL LOWER EXTREMITY VENOUS EXAM FOR DVT IMPRESSION: There is no evidence to suggest deep or superficial venous thrombus in either lower extremity. Disposition remains unclear at this time. Electronically signed by: Pablo Booth DO 08/27/2016 12:37 Addendum: Patient has been refused by [facility] and cannot go to SNF due to drug abuse Hx. Discussed with Case Management. Discharge ordered with re-institution of Home Health PT / OT (orders completed), but rachael t states she cannot leave as she has no one home at this time (son away for holiday). Disposition still unclear. Stop long acting narcotic and ABX. F/U labs in am tomorrow. I spent greater than 35 minutes in the care and management of this patient today. Melia Dill RN - 08/26/2016 2:42 PM PSTFormatting of this note might be different from the orig inal. 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 Disc harged home with home health and admitted to [facility] for intractable pain. Taking Oxy 10mg Q4h rs and tramadol q6hrs PRN. Scheduled tylenol and oxycontin. Neuro Neuro intact; medical overflow patient NIH Stroke Scale Total Score NA Tele Yes: [] What is the rhythm: NA Diet Active Orders Diet Diet fat and cholesterol modified; Effective Now How patient takes medications: whole with water Mobility/Braces/HRF Interventions: Up as tolerated with walker. Stand pivoting to beds chris commode with walker. Last bowel movement: Stool Occurrence: 1 (08/26/16 1300) Last Bowel Movement: 08/26/16 (1 10/26/15 0800) Restraints NA TeleSitter or Bedside Sitter NA Discharge plan [facility]? Steph Artis LICSW - 08/26/2016 8:57 AM PSTSW: referral noted, chart reviewed. [facility] consult ordered and pending. SW will follow. Electronically signed by JEFFY Mckeon at 016 8:57 AM Pablo Garrido DO - 08/26/2016 8:26 AM PST Patient: Anne Marie Pichardo Date of : 1955 Admit Date: 08/25/2016 Date of Service: 08/26/2016 PCP: Yolanda Richmond [facility] Day: Hospital Course: Ms. iPchardo is a 61-year-old female admitted to [facility] on for a left inferior and superior pubic rami fractures and a right sacral alar fra cture. She was discharged to home August 20 with home health services and has reportedly done poorly with uncontrolled pain. Home Health staff advised readmission for evaluation for acute inpatient rehabililtation, but she was sent to [facility] instead of [facility]. She was noted to have a marked leukocytosis and elevated CRP of unclear significance. Assessment and Plan: Ms. Pichardo's chart was reviewed in detail, and she was seen and examined by me. Assessment of active problems addressed today: Active Hospital Problems Diagnosis Closed pelvic ring fracture, with routine healing, subsequent encounter: she was sent h ome with home health for continued PT from [facility] - await repeat PT / OT evaluations here ([facility] order noted) - pain control is to be accomplished without IV narcotics Positive D dimer: evaluate for DVT with bilateral LE US today Elevated C-reactive protein (CRP) Elevated procalcitonin Leukocytosis The above three diagnoses are concerning for an underlying occult infection or some other t ype of inlfammatory response - as above, checking for DVT, BCX x 2 pending -the patient is afebrile now ( had low grade temp earlier) and does not appear acutely ill -CXR and UA unremarkable - will check respiratory pathogens panel for completeness' sake Bipolar disorder: continued on home Rx's Normocytic anemia: moderate; check iron studies - PO MVI added Primary osteoarthritis involving multiple joints: - severe, right greater than left, hip joint osteoarthrosis, significantly progressive comp ared to 09/27/2013 comparison; probably contributing to her chronic pain and decreased mobil ity - she will need outpatient referral to Orthopedic Surgery for evaluation for elective BRIDGET Acute bronchitis: I doubt this diagnosis - she has no signs or symptoms of this this am - patient was placed on Augmentin on admission Ischemic cardiomyopathy: preserved LVEF of 55% per last echo with focal hypokinesis - she is on ASA / beta mateus / PHOEBE-I; statin therapy added today Tobacco abuse: nicotine patch in place to control cravings Resolved Hospital Problems Diagnosis No resolved problems to display. CODE STATUS: Full Code DVT prophylaxis: enoxaparin Subjective: CC: over-sedated The patient has been over-sedated on IV morphine per nurses notes - this was discontinued a nd her pain medication orders adjusted. She did awake easily, but seems "off" - laughing and in no pain or distress and did fall back asleep during my exam. Discussed removal of Andino catheter with nurse this am. Patient has a Hx of heroin and methamphetamine use, and this is probably why she did not tr ansfer to a SNF from her admission at [facility] (toxicology screen ordered this am). Review of Systems Constitutional: Positive for fever (low grade - Tmax 100.8 F). Negative for chills, malaise /fatigue and diaphoresis. HENT: Negative. Eyes: Negative. Negative for blurred vision. Respiratory: Negative. Negative for cough, hemoptysis, sputum production, shortness of narcisa ath and wheezing. Cardiovascular: Negative. Negative for chest pain, palpitations and leg swelling. Gastrointestinal: Negative. Negative for heartburn, nausea, vomiting and abdominal pain. Genitourinary: Negative. Negative for dysuria and hematuria. Andino placed last evening - unclear indications Musculoskeletal: Positive for myalgias and back pain. Pelvic pain Skin: Negative. Negative for rash. Neurological: Positive for weakness. Negative for dizziness, tingling, tremors, sensory mio nge, focal weakness and headaches. Psychiatric/Behavioral: Negative. Objective: Vitals Current Average / Min / Max Temp 36.7 C (98 F) Temp Min: 36.7 C (98 F) Max: 38.2 C (100.8 F) BP 109/54 mmHg BP Min: 95/49 Max: 149/62 HR 77 Pulse Av Min: 77 Max: 92 RR 18 Resp Av.3 Min: 16 Max: 22 Sats 95 % SpO2 Min: 94 % Max: 96 % room air I/O last 3 completed shifts: In: - Out: 2074 [Urine:2074] Wt Readings from Last 3 Encounters: 08/26/16 63.504 kg (140 lb) 05/25/15 68.04 kg (150 lb) 03/12/15 68.04 kg (150 lb) Physical Exam Constitutional: She is oriented to person, place, and time. She appears well-developed and well-nourished. No distress. HENT: Head: Normocephalic and atraumatic. Nose: Nose normal. Mouth/Throat: Oropharynx is clear and moist. No oropharyngeal exudate. Few remaining teeth Eyes: Conjunctivae and EOM are normal. Pupils are equal, round, and reactive to light. Righ t eye exhibits no discharge. Left eye exhibits no discharge. No scleral icterus. Neck: Normal range of motion. Neck supple. No JVD present. No tracheal deviation present. N o thyromegaly present. Cardiovascular: Normal rate, regular rhythm and intact distal pulses. Exam reveals no gall op and no friction rub. Murmur (very soft systolic at apex) heard. Pulmonary/Chest: Effort normal and breath sounds normal. No respiratory distress. She has n o wheezes. She has no rales. Abdominal: Soft. Bowel sounds are normal. She exhibits no distension and no mass. There is no tenderness. There is no guarding. No hernia. Genitourinary: Andino in place Musculoskeletal: Normal range of motion. She exhibits no edema or tenderness. Neurological: She is alert and oriented to person, place, and time. No cranial nerve defici t. She exhibits normal muscle tone. Coordination normal. Skin: Skin is warm and dry. No rash noted. She is not diaphoretic. No erythema. No pallor. Psychiatric: She has a normal mood and affect. Her behavior is normal. Judgment and thought content normal. Nursing note and vitals reviewed. Active Lines PIV Line Peripheral IV Line - Single Lumen 08/25/167 less than 1 day Peripheral IV Line - Single Lumen 08/25/16 2216 Left Lateral Forearm [id number] [place] ter system 22 gauge;1 in length less than 1 day Active Tubes/Drains Urinary Catheter Urethral Catheter 08/25/16 2245 16 10 less than 1 day MEDICATIONS: SCHEDULED: acetaminophen 650 mg Oral 4x Daily amoxicillin-clavulanate 1 tablet Oral BID aspirin 81 mg Oral Daily atorvaSTATin 40 mg Oral Nightly calcium-vitamin D 2 tablet Oral TID WC carvedilol 6.25 mg Oral BID WC docusate-senna 2 tablet Oral BID enoxaparin 40 mg Subcutaneous Daily ergocalciferol 50,000 Units Oral Weekly FLUoxetine 20 mg Oral Daily lisinopril 20 mg Oral Daily nicotine 1 patch Transdermal Daily oxyCODONE 10 mg Oral 3 times per day [START ON 08/27/2016] polyethylene glycol 17 g Oral Daily QUEtiapine 100 mg Oral Nightly IV: PRN: hydrOXYzine pamoate, ketorolac, ondansetron, oxyCODONE, traMADol 24 HOUR LABS: All pertinent labs and imaging have been reviewed. Please refer to the Assessment and Plan for details on management. Recent Results (from the past 24 hour(s)) CBC no Differential Result Value Ref Range WBC 20.9 (H) 3.8 - 11.0 K/uL RBC 3.56 (L) 3.70 - 5.10 M/uL Hgb 10.1 (L) 11.3 - 15.5 g/dL Hct 31.6 (L) 34.0 - 46.0 % MCV 88.8 80.0 - 100.0 fL MCH 28.4 27.0 - 34.0 pg MCHC 32.0 32.0 - 35.5 g/dL RDW-CV 14.6 11.0 - 15.5 % Platelet Count 415 (H) 150 - 400 K/uL Basic Metabolic Panel Result Value Ref Range NA 133 (L) 135 - 145 mmol/L K 4.7 3.5 - 5.0 mmol/L CL 99 99 - 109 mmol/L CO2 27 21 - 28 mmol/L GLUCOSE 127 (H) 65 - 99 mg/dL BUN 19 8 - 25 mg/dL Creatinine, Serum/Plasma 0.82 0.50 - 1.00 mg/dL CALCIUM 9.0 8.5 - 10.2 mg/dL ANION GAP 7 5 - 16 mmol/L Estimated GFR >60 >60 ml/min/1.73m2 Urinalysis With Microscopic Result Value Ref Range COLOR Yellow CLARITY Clear GLUCOSE UA Negative Negative mg/dL BILIRUBIN UA Negative Negative KETONES UA Negative Negative mg/dL Specific [place] 1.015 1.001 - 1.030 PH UA 7.0 5.0 - 7.5 PROTEIN UA Negative Negative mg/dL UROBILINOGEN UA <2.0 <2.0 mg/dL NITRITE UA Negative Negative BLOOD UA Negative Negative LEUKOCYTES ESTERASE UA Negative Negative WBC UA <1 <6 /hpf RBC UA 2 <6 /hpf BACTERIA UA None seen /hpf SQUAMOUS EPITHELIAL UA Few /lpf Culture, Blood Result Value Ref Range Specimen Source Blood RH RESULT Pending Procalcitonin Result Value Ref Range Procalcitonin 0.61 (H) <0.1 ng/mL Sedimentation Rate Result Value Ref Range ESR 66 (H) 0 - 20 mm/h Lactic Acid Result Value Ref Range Lactate, Venous 1.1 0.5 - 2.2 mmol/L Culture, Blood Result Value Ref Range Specimen Source Blood LAC RESULT Pending C-Reactive Protein Result Value Ref Range CRP 14.0 (H) 0.0 - 1.5 mg/dL CBC with Differential Result Value Ref Range WBC 18.6 (H) 3.8 - 11.0 K/uL RBC 3.37 (L) 3.70 - 5.10 M/uL Hgb 9.6 (L) 11.3 - 15.5 g/dL Hct 29.8 (L) 34.0 - 46.0 % MCV 88.4 80.0 - 100.0 fL MCH 28.3 27.0 - 34.0 pg MCHC 32.0 32.0 - 35.5 g/dL RDW-CV 14.6 11.0 - 15.5 % Platelet Count 361 150 - 400 K/uL Differential Type Automated % Neutrophils 78.2 (H) 40.0 - 75.0 % % Lymphocytes 8.6 (L) 15.0 - 48.0 % % Monocytes 8.1 0.0 - 12.0 % % Eosinophils 4.6 0.0 - 7.0 % % Basophils 0.5 0.0 - 2.0 % Absolute Neutrophils 14.60 (H) 1.90 - 7.40 K/uL Absolute Lymphocytes 1.60 1.00 - 3.90 K/uL Absolute Monocytes 1.50 (H) 0.00 - 0.80 K/uL Absolute Eosinophils 0.90 (H) 0.00 - 0.50 K/uL Absolute Basophils 0.10 0.00 - 0.10 K/uL D-Dimer Result Value Ref Range D-DIMER, QUANTITATIVE >4.00 (H) <0.50 ug/mL FEU Iron and Iron Binding Capacity Result Value Ref Range IRON <10 (L) 30 - 180 ug/dL TIBC 309 260 - 490 ug/dL Iron Saturation 15 - 50 % Unable to report Total Iron Saturation due to low Iron result. Social Work consult pending. Disposition remains unclear at this time. I spent greater than 35 minutes in the care and management of this patient today. Electronically signed by: Pablo Booth DO 08/26/2016 10:36Electronically si gned by Pablo Booth DO at 08/26/2016 10:50 AM Yina Gonzalez RN - 08/07 6:29 AM PSTReceived IRF referral. Clinical record reviewed. Will continue to follow for discharge recommendations. Electronically signed by: Yina Hernandez RN 08/26/2016 6:30 Steph Knowles RN - 08/25/2016 11:38 PM PST4 hr shift note: ED admit. S/P pelvis fx on 08/16/16. A/Ox4. VSS. SZYMANSKI. Pain grossly out of control. Multiple old bruises UE. Hx MRSA, Scabies (recently charlene colon, per notes). Currently on Amoxicillin for bronchitis. Received Scheduled oxycontin ER @2 045, Percocet @2044 and Morphine 4mg, IV push @2224. Andino placed for comfort; 500ml drained .. Fracture bedpan in room. Orig recommendation for [facility] tomorrow, but pt most likely meets inpatient criteria, so won't be going to [facility] until after therapies meet with Pt. Electronic ally signed by Steph Story RN at 08/25/2016 11:48 PM Azra Gonzalez, Pharmacy [facility] - 08/25/2016 6:25 PM PST PHARMACY SERVICES: ADMISSION MEDICATION HISTORY Anne Marie Pichardo is a 61 y.o. female admitted on 08/25/2016 14:39. The primary encounter diagnosis was Leukocytosis, unspecified type. A diagnosis of Closed pelvic ring fracture, w ith routine healing, subsequent encounter was also pertinent to this visit. Patient is a reliable historian and medication history was not difficult to obtain from [facility]. Patient s prior to admit medications and over the counter (OTC) medications/herbal supple ments list obtained from patient, [facility], and [facility]. Total # of Prior to Admission Meds: 10 Noted Medication Discrepancies or Medication-related Issues Dosage change: Hydroxyzine 25 mg Po nightly PRN (from wrong strength) Medication added: Acetaminophen 500 mg PO every 6 hours PRN Vitamin D 50,000 units PO once weekly Permethrin 5% cream, 1 application topically every 3 days Removed therapy: Atorvastatin 40 mg (not taking) [employer] WORKER Medications Taking Prior to Admission medications Medication Sig acetaminophen (Q-PAP) 500 mg tablet Take 500 mg by mouth every 6 hours as needed for Pain. aspirin 81 mg EC tablet Take 81 mg by mouth Daily. carvedilol (COREG) 6.25 mg tablet Take 6.25 mg by mouth 2 times daily (with breakfast & din ner). ergocalciferol (VITAMIN D-2) 50,000 units capsule Take 50,000 Units by mouth Once a week. FLUoxetine (PROZAC) 20 mg capsule Take 20 mg by mouth Daily. HYDROcodone-acetaminophen (NORCO) 5-325 mg per tablet Take 1-2 tablets by mouth every 4 umberto rs as needed for Pain. hydrOXYzine hydrochloride (ATARAX) 25 mg tablet Take 25 mg by mouth nightly as needed for I tching or Anxiety. lisinopril (PRINIVIL, ZESTRIL) 20 mg tablet Take 20 mg by mouth Daily. permethrin (ELIMITE) 5% cream Apply 1 Application topically Every 3 days. QUEtiapine (SEROQUEL) 100 mg tablet Take 100 mg by mouth nightly. Allergies Review of patient's allergies indicates no known allergies. Reviewed by Pharmacy? yes Immunizations Vaccines up to date? Yes No Unsure Refuses Influenza [x] [] [] [] Pneumococcal [] [] [x] [] Tdap [] [] [x] [] [employer] Med List Sources Medications reported by the patient were confirmed via: [x] Verbal interview (able to recall drug name, strength, frequency, etc.) [] Provided a complete current medication list [] Medication bottles [] MAR from SNF facilities: [x] Pharmacy - list names if received from multiple pharmacies: [facility] [] Doctor's office: [x] [employer] insurance reported information [] Care Everywhere [] [place] Prescription Monitoring Program [] Other sources: Medication history performed and electronically signed by Azra Hernandez, Decorating Machine Operator 08/25 18:25 Associated attestation - George Sultana PharmD - 08/25/2016 6:42 PM PSTReviewed [employer] WORK[employer] med l ist changes and agree with discrepancies noted by quality control lab technician. Electronically signed by: George Sultana PHARMD 08/25/2016 18:42 Claudia Nguyễn Smoking Tobacco Cutter Operator-Clinical - 08/25/2016 6:15 PM PSTSLRI leather case finisher receive d referral. Clinical information reviewed. Await therapy input to assess IPR determination. Will follow progress for discharge recommendations. Electronically signed by: Claudia Nguyễn JUICE PACKAGING MACHINES SETTER 08/25/2016 18:15 documented in this encounter Plan of Treatment +--------+---------+ + + + | Date | Type | Specialty | Care Team | Description | +--------+---------+ + + + | 09/01/ | Office | Gastroenterology | Aba Gonsalez | | | 2018 | Visit | | MD George [address] | | | | | [address] | | | | | | [place] [address] | | | | | | [phone] | | | | | | | | +--------+---------+ + + + | 10/28/ | Office | Cardiology | Carol, | | | 2019 | Visit | | SALVATORE Moreno [address] | | | | | [address] [place], | | | | | | [place] [address] | | | | | | [phone] | | | | | | | | +--------+---------+ + + + documented as of this encounter Procedures + +--------+ + + + | Procedure Name | Priori | Date/Time | Associated Diagnosis | Comments | | | ty | | | | + +--------+ + + + | CBC WITH | Routin | 08/28/2016 | | Results for this | | DIFFERENTIAL | e | 3:21 AM | | procedure are in the | | | | PST | | results section. | + +--------+ + + + | C-REACTIVE PROTEIN | Routin | 08/28/2016 | | Results for this | | | e | 3:21 AM | | procedure are in the | | | | PST | | results section. | + +--------+ + + + | ECHO COMPLETE | Routin | 08/27/2016 | | Results for this | | | e | 9:00 AM | | procedure are in the | | | | PST | | results section. | + +--------+ + + + | PROCALCITONIN, SERUM | Routin | 08/27/2016 | | Results for this | | | e | 5:30 AM | | procedure are in the | | | | PST | | results section. | + +--------+ + + + | CBC WITH | Routin | 08/27/2016 | | Results for this | | DIFFERENTIAL | e | 5:30 AM | | procedure are in the | | | | PST | | results section. | + +--------+ + + + | C-REACTIVE PROTEIN | Routin | 08/27/2016 | | Results for this | | | e | 5:30 AM | | procedure are in the | | | | PST | | results section. | + +--------+ + + + | LVEF VALUE | Routin | 08/27/2016 | | Results for this | | | e | | | procedure are in the | | | | | | results section. | + +--------+ + + + | DRUGS OF ABUSE, | Routin | 08/26/2016 | | Results for this | | SCREEN, URINE | e | 2:42 PM | | procedure are in the | | | | PST | | results section. | + +--------+ + + + | RESPIRATORY VIRUS | STAT | 08/26/2016 | | Results for this | | ANTIGENS PROFILE | | 2:16 PM | | procedure are in the | | | | PST | | results section. | + +--------+ + + + | VAS LOWER EXTREMITY | Routin | 08/26/2016 | | Results for this | | VENOUS BILATERAL | e | 11:42 AM | | procedure are in the | | | | PST | | results section. | + +--------+ + + + | IRON AND IRON | Add-On | 08/26/2016 | | Results for this | | BINDING CAPACITY | | 9:06 AM | | procedure are in the | | | | PST | | results section. | + +--------+ + + + | D-DIMER | Add-On | 08/26/2016 | | Results for this | | | | 7:58 AM | | procedure are in the | | | | PST | | results section. | + +--------+ + + + | CBC WITH | Routin | 08/26/2016 | | Results for this | | DIFFERENTIAL | e | 6:12 AM | | procedure are in the | | | | PST | | results section. | + +--------+ + + + | C-REACTIVE PROTEIN | Routin | 08/26/2016 | | Results for this | | | e | 6:12 AM | | procedure are in the | | | | PST | | results section. | + +--------+ + + + | CULTURE, BLOOD | Routin | 08/25/2016 | | Results for this | | | e | 7:57 PM | | procedure are in the | | | | PST | | results section. | + +--------+ + + + | PROCALCITONIN, SERUM | Routin | 08/25/2016 | | Results for this | | | e | 7:47 PM | | procedure are in the | | | | PST | | results section. | + +--------+ + + + | SEDIMENTATION RATE | Routin | 08/25/2016 | | Results for this | | | e | 7:47 PM | | procedure are in the | | | | PST | | results section. | + +--------+ + + + | CULTURE, BLOOD | Routin | 08/25/2016 | | Results for this | | | e | 7:47 PM | | procedure are in the | | | | PST | | results section. | + +--------+ + + + | LACTIC ACID | Routin | 08/25/2016 | | Results for this | | | e | 7:47 PM | | procedure are in the | | | | PST | | results section. | + +--------+ + + + | XR CHEST AP PORTABLE | STAT | 08/25/2016 | | Results for this | | | | 5:18 PM | | procedure are in the | | | | PST | | results section. | + +--------+ + + + | URINALYSIS WITH | STAT | 08/25/2016 | | Results for this | | MICROSCOPIC | | 4:48 PM | | procedure are in the | | | | PST | | results section. | + +--------+ + + + | XR PELVIS 1 OR 2 VW | STAT | 08/25/2016 | | Results for this | | | | 4:27 PM | | procedure are in the | | | | PST | | results section. | + +--------+ + + + | CBC NO DIFFERENTIAL | STAT | 08/25/2016 | | Results for this | | | | 3:52 PM | | procedure are in the | | | | PST | | results section. | + +--------+ + + + | BASIC METABOLIC | STAT | 08/25/2016 | | Results for this | | PANEL | | 3:52 PM | | procedure are in the | | | | PST | | results section. | + +--------+ + + + documented in this encounter Results C-Reactive Protein (08/28/2016 3:21 AM PST) + + + + + + | Component | Value | Ref Range | Performed | Pathologist | | | | | At | Signature | + + + + + + | CRP | 11.9 (H)Comment: This | 0.0 - 1.5 mg/dL [...] + | [facility] | [address] | [place] [address] | | | [facility] | | | | | LABORATORY | | | | + + + + + CBC with Differential (08/28/2016 3:21 AM PST) + + + + + [...] + + + + | RBC | 3.36 (L) | 3.70 - 5.10 | [facility] | | | | M/uL [facility] | | [facility] | | | | | | [facility] | | | | | | LABORATORY | | + + + + + + | Hemoglobin | 9.6 (L) | 11.3 - 15.5 | [facility] | | | | | g/dL | [facility] | | | | | [facility] | | | | | [facility] | | | | | | [facility] | | | | | | LABORATORY | | + + + + + + | Hematocrit | 29.5 (L) | 34.0 - 46.0 % | [facility] | [facility] | | | | | [facility] | | | | | [facility] | | | | | | LABORATORY | | + + + + + + | MCV | 88.0 | 80.0 - 100.0 fL | [facility] | [facility] | | | | | [facility] | | | | | | [facility] | | | | | | LABORATORY | | + + + + + + | MCH | 28.7 | 27.0 - 34.0 pg | [facility] | | | | | [facility] | | | | | [facility] | | | | | | LABORATORY | | + + + + + + | MCHC | 32.6 | 32.0 - 35.5 | [facility] | | | | | g/dL | [facility] | | [facility] | | | | | | [facility] | | | | | | LABORATORY | | + + + + + + | RDW-CV | 14.7 | 11.0 - 15.5 % | [facility] | | | | | [facility] | | | | | | [facility] | | | | | | LABORATORY | | + + + + + + | Platelet | 403 (H) | 150 - 400 K/uL | [...] + + + + | % | 66.6 | 40.0 - 75.0 % | [facility] | | | Neutrophils | | | [facility] | | | | | [facility] | | | | | | [facility] | | | | | | [facility] | | | | | | LABORATORY | | + + + + + + | % | 12.4 (L) | 15.0 - 48.0 % | [facility] | | | Lymphocytes | | | [facility] | | | | | [facility] | | | | | | [facility] | | | | | | [facility] | | | | | | LABORATORY | | + + + + + + | % Monocytes | 6.5 | 0.0 - 12.0 % | [facility] | | | | [facility] | [facility] | | | | | | [facility] | | | | | | [facility] | | | | | | LABORATORY | | + + + + + + | % | 13.8 (H) | 0.0 - 7.0 % | [facility] [...] + + + + | Absolute | 5.90 | 1.90 - 7.40 | [facility] | | | Neutrophils | | K/uL | [facility] | | | | | [facility] | | | | | | [facility] | | | | | | [facility] | | | | | | LABORATORY | | + + + + + + | Absolute | 1.10 | 1.00 - 3.90 | [facility] | [...] + + + + | Absolute | 1.20 (H) | 0.00 - 0.50 | [facility] | [...] + + + + + | [facility] | [address] | [place] [address] | | | [facility] | | | | | LABORATORY | | | | + + + + + ECHO Complete (08/27/2016 9:00 AM PST) + + | Specimen | + + | | + + + + ---+ | Narrative | Performed At | + + ---+ | | | | | | | Adult Echo | | | Report Name: | | | ANNE MARIE PICHARDO Study Date: 08/27/2016MRN: [id number] | | | Patient Location: [facility]DOB: 1955 | | | Age: 61 yrs Gender: | | | FemaleHeight: 62 in Weight: 140 lb | | | BSA: 1.6 m2 | | | HR: 81 Rhythm: SRHistory: CAD, | | | ACUTE [place], ICM, HTN, ANXIETY, DEPRESSIONReason For Study: murmur, Hx | | | IVDU, leukocytosis, CAD ; AUC 34 INTERPRETATION SUMMARY:A | | | two-dimensional transthoracic echocardiogram with M-mode, pulsed | | | waveand color Doppler was performed. 1. Normal biventricular chamber | | | size and systolic function. The estimatedLVEF is 55%.2. Normal | | | valvular function, no vegetations are seen.3. Pulmonary pressure could | | | not be estimated. Left Ventricle:The left ventricle is normal in | | | size. The LV end diastolic dimension(LVIDd) was measured at 5.1 cm. | | | There is normal left ventricular wallthickness. The left ventricular | | | systolic function is within normal limits.The visually estimated LV | | | ejection fraction is 55%. The transmitralspectral Doppler flow pattern | | | is normal for age. The E/e' ratio is mildlyelevated (9-14) . The | | | inferolateral LV freewall appears thinned andakinetic. All other LV | | | wall segments appear to function normally. Right Ventricle:The right | | | ventricle is normal size. RVIDd = 4.0 cm. Right ventricularsystolic | | | function appears qualitatively normal. TAPSE was measured at 2.2cm. | | | (Normal value >1.8 cm). Atria:The left and right atrial chambers are | | | both normal in size. The IVCdimension is 2.3 cm. The IVC measures WNL | | | and shows normal inspiratorycollapse. The interatrial septum is intact | | | with no evidence for an atrialseptal defect. Mitral Valve:The mitral | | | valve appears normal in structure and function. Posteriormitral | | | annular calcification is noted. There is no evidence of mitralvalve | | | prolapse. No obvious valvular vegetation detected. There is nomitral | | | regurgitation noted. Tricuspid Valve:The tricuspid valve leaflets are | | | thin and pliable. Normal tricuspid valve.No obvious valvular | | | vegetation detected. No tricuspid regurgitation isseen. Unable to | | | accurately assess RV systolic pressures in the absence ofsignificant | | | tricuspid regurgitation. Aortic Valve:The aortic valve is trileaflet. | | | The aortic valve appears normal instructure and function. There is no | | | aortic valvular vegetation. No aorticinsufficiency is present. | | | Pulmonic Valve:The pulmonic valve was partially visualized and appears | | | grossly normal instructure and function. No obvious valvular | | | vegetation detected. There isno pulmonic valvular insufficiency. Great | | | Vessels:The aortic root is normal size. The aortic root diameter was | | | measured at3.2 cm. The ascending aorta appears grossly normal. The | | | ascending aortadiameter was measured at 3.2 cm. The aortic arch | | | appears grossly normal.The pulmonary artery is grossly normal in | | | appearance. Pericardium/Pleural:The pericardium appears normal. There | | | is no pericardial effusion. Nopleural effusions are seen. MMode/2D | | | Measurements & CalculationsRVDd: 4.0 cm | | | LVIDd: 5.1 cmIVSd: 1.4 cm | | | LVIDs: 4.2 cmIVSs: 1.6 cm | | | LVPWd: 0.81 cm | | | LVPWs: 0.75 cm FS: 17.7 % | | | Ao root diam: 3.2 cm | | | ACS: 2.0 cm | | | LA dimension: 4.5 cmasc Aorta Diam: 3.2 cm | | | EDV(MOD-sp4): 92.0 ml | | | ESV(MOD-sp4): 36.0 ml | | | EF(MOD-sp4): 60.9 %EDV(MOD-sp2): 49.0 ml | | | Doppler Measurements & CalculationsMV E max padmini: 127.7 cm/sec | | | MV dec time: 0.20 secMV A max padmini: 118.5 cm/secMV E/A: 1.1Ao | | | V2 max: 186.9 cm/sec PA V2 max: 120.9 cm/secAo | | | max P.0 mmHg PA max P.8 mmHg | | | Interpreting Physician: Fantasma Geiger MDelectronically signed on | | | 08/27/2016 01:21 PMOrdering Physician: ROCHELLE BOOTHchocardiographer: | | | Parish [id number]: | | |The pulmonary artery is grossly normal in appearance. | | | | | |Pericardium/Pleural: | | |The pericardium appears normal. There is no pericardial effusion. No | | |pleural effusions are seen. | | | | | |MMode/2D Measurements & Calculations | | |RVDd: 4.0 cm LVIDd: 5.1 cm | | |IVSd: 1.4 cm LVIDs: 4.2 cm | | |IVSs: 1.6 cm LVPWd: 0.81 cm | | | LVPWs: 0.75 cm | | | | | |FS: 17.7 % Ao root diam: 3.2 cm | | | ACS: 2.0 cm | | | LA dimension: 4.5 cm | | |asc Aorta Diam: 3.2 cm EDV(MOD-sp4): 92.0 ml | | | ESV(MOD-sp4): 36.0 ml | | | EF(MOD-sp4): 60.9 % | | |EDV(MOD-sp2): 49.0 ml | | | | | |Doppler Measurements & Calculations | | |MV E max padmini: 127.7 cm/sec MV dec time: 0.20 sec | | |MV A max padmini: 118.5 cm/sec | | |MV E/A: 1.1 | | |Ao V2 max: 186.9 cm/sec PA V2 max: 120.9 cm/sec | | |Ao max P.0 mmHg PA max P.8 mmHg | | | | | |Interpreting Physician: Fantasma Geiger MD | | |electronically signed on 08/27/2016 01:21 PM | | |Ordering Physician: PABLO BOOTH | | |Civil Drafter: Parish Diaz | | |[id number]: | | | | | + + ---+ + + | Procedure Note | + + | Tim, Rad Results In - 08/27/2016 1:35 PM PST | | Adult Echo | | Report | | | | Name: ANNE MARIE PICHARDO Study Date: 08/27/2016 | | Patient Location: [place] [address] | | : 1955 Age: 61 yrs Gender: Female | | Height: 62 in Weight: 140 lb BSA: 1.6 m2 | | HR: 81 Rhythm: SR | | History: CAD, ACUTE [place], ICM, HTN, ANXIETY, DEPRESSION | | Reason For Study: murmur, Hx IVDU, leukocytosis, CAD ; AUC 34 | | | | INTERPRETATION SUMMARY: | | A two-dimensional transthoracic echocardiogram with M-mode, pulsed wave | | and color Doppler was performed. | | | | 1. Normal biventricular chamber size and systolic function. The estimated | | LVEF is 55%. | | 2. Normal valvular function, no vegetations are seen. | | 3. Pulmonary pressure could not be estimated. | | | | Left Ventricle: | | The left ventricle is normal in size. The LV end diastolic dimension | | (LVIDd) was measured at 5.1 cm. There is normal left ventricular wall | | thickness. The left ventricular systolic function is within normal limits. | | The visually estimated LV ejection fraction is 55%. The transmitral | | spectral Doppler flow pattern is normal for age. The E/e' ratio is mildly | | elevated (9-14) . The inferolateral LV freewall appears thinned and | | akinetic. All other LV wall segments appear to function normally. | | | | Right Ventricle: | | The right ventricle is normal size. RVIDd = 4.0 cm. Right ventricular | | systolic function appears qualitatively normal. TAPSE was measured at 2.2 | | cm. (Normal value >1.8 cm). | | | | Atria: | | The left and right atrial chambers are both normal in size. The IVC | | dimension is 2.3 cm. The IVC measures WNL and shows normal inspiratory | | collapse. The interatrial septum is intact with no evidence for an atrial | | septal defect. | | | | Mitral Valve: | | The mitral valve appears normal in structure and function. Posterior | | mitral annular calcification is noted. There is no evidence of mitral | | valve prolapse. No obvious valvular vegetation detected. There is no | | mitral regurgitation noted. | | | | Tricuspid Valve: | | The tricuspid valve leaflets are thin and pliable. Normal tricuspid valve. | | No obvious valvular vegetation detected. No tricuspid regurgitation is | | seen. Unable to accurately assess RV systolic pressures in the absence of | | significant tricuspid regurgitation. | | | | Aortic Valve: | | The aortic valve is trileaflet. The aortic valve appears normal in | | structure and function. There is no aortic valvular vegetation. No aortic | | insufficiency is present. | | | | Pulmonic Valve: | | The pulmonic valve was partially visualized and appears grossly normal in | | structure and function. No obvious valvular vegetation detected. There is | | no pulmonic valvular insufficiency. | | | | Great Vessels: | | The aortic root is normal size. The aortic root diameter was measured at | | 3.2 cm. The ascending aorta appears grossly normal. The ascending aorta | | diameter was measured at 3.2 cm. The aortic arch appears grossly normal. | | The pulmonary artery is grossly normal in appearance. | | | | Pericardium/Pleural: | | The pericardium appears normal. There is no pericardial effusion. No | | pleural effusions are seen. | | | | MMode/2D Measurements & Calculations | | RVDd: 4.0 cm LVIDd: 5.1 cm | | IVSd: 1.4 cm LVIDs: 4.2 cm | | IVSs: 1.6 cm LVPWd: 0.81 cm | | LVPWs: 0.75 cm | | | | FS: 17.7 % Ao root diam: 3.2 cm | | ACS: 2.0 cm | | LA dimension: 4.5 cm | | asc Aorta Diam: 3.2 cm EDV(MOD-sp4): 92.0 ml | | ESV(MOD-sp4): 36.0 ml | | EF(MOD-sp4): 60.9 % | | EDV(MOD-sp2): 49.0 ml | | | | Doppler Measurements & Calculations | | MV E max padmini: 127.7 cm/sec MV dec time: 0.20 sec | | MV A max padmini: 118.5 cm/sec | | MV E/A: 1.1 | | Ao V2 max: 186.9 cm/sec PA V2 max: 120.9 cm/sec | | Ao max P.0 mmHg PA max P.8 mmHg | | | | Interpreting Physician: Fantasma Geiger MD | | electronically signed on 08/27/2016 01:21 PM | | Ordering Physician: PABLO BOOTH | | Civil Drafter: Parish Diaz | | [id number]: | + + Procalcitonin (08/27/2016 5:30 AM PST) + + + + + + | Component | Value | Ref Range | Performed | Pathologist | | | | | At | Signature | + + + + + + | Procalciton | 0.59 (H)Comment: | <0.1 ng/mL | [facility] | | | in | Procalcitonin of <0.5 | | [facility] | | | | ng/mL represents a low | | HEART | | | | risk of severe sepsis | | MEDICAL | | | | and/or septic shock, but | | CENTER | | | | does not rule out | | LABORATORY | | | | infection. Procalcitonin | | | | | | levels between 0.5 and | | | | | | 2.0 ng/mL are considered | | | | | | indeterminate in regard | | | | | | to risk for severe | | | | | | sepsis and/or septic | | | | | | shock. Procalcitonin of | | | | | | >2.0 ng/mL represents a | | | | | | high risk of severe | | | | | | sepsis and/or septic | | | | | | shock, but can occur | | | | | | without infection. | | | | + + + + + + + + | Specimen | + + | Blood specimen | | (specimen) | + + + + + + + | Performing | Address | City/State/Zipcode | Phone Number | | Organization | | | | + + + + + | [facility] | [address] | [place] [address] | | | [facility] | | | | | LABORATORY | | | | + + + + + C-Reactive Protein (08/27/2016 5:30 AM PST) + + + + + + | Component | Value | Ref Range | Performed | Pathologist | | | | | At | Signature | + + + + + + | CRP | 17.7 (H)Comment: This | 0.0 - 1.5 mg/dL [...] + | [facility] | [address] | [place] [address] | | | [facility] | | | | | LAB[facility]ATORY | | | | + + + + + CBC with Differential (08/27/2016 5:30 AM PST) + + + + + + | Component | Value | Ref Range | Performed | Pathologist | | | | | At | Signature | + + + + + + | WBC | 11.2 (H) | 3.8 - 11.0 K/uL | [facility] | | | | | | [facility] | | | | | [facility] | | | | | | [facility] | | | | | | [facility] | | | | | | LABORATORY | | + + + + + + | RBC | 3.26 (L) | 3.70 - 5.10 | [facility] | | | | | M/uL | [facility] | | | | | | [facility] | | | | | | [facility]ICAL | | | | | | CENTER | | | | | | LABORATORY | | + + + + + + | Hemoglobin | 9.6 (L) | 11.3 - 15.5 | [facility] | | | | | g/dL | [facility] | | | | | | [facility] | | | | | | [facility]ICAL | | | | | | CENTER | | | | | | LABORATORY | | + + + + + + | Hematocrit | 28.4 (L) | 34.0 - 46.0 % | [...] + + + + | MCHC | 33.9 | 32.0 - 35.5 | [facility] | | | | | g/dL | [facility] | | | | | | [facility] | | | | | | [facility] | | | | | | CENTER | | | | | | LABORATORY | | + + + + + + | RDW-CV | 14.7 | 11.0 - 15.5 % | [facility] [...] + + + + | % | 77.9 (H) | 40.0 - 75.0 % | [facility] | | | Neutrophils | | | [facility] | | | | | | HEART | | | | | | MEDICAL | | | | | | CENTER | | | | | | LABORATORY | | + + + + + + | % | 8.2 (L) | 15.0 - 48.0 % | [facility] | | | Lymphocytes | | | [facility] | | | | | | HE[facility] | | | | | | MEDICAL | | | | | | CENTER | | | | | | LABORATORY | | + + + + + + | % Monocytes | 6.4 | 0.0 - 12.0 % | [facility] | | | | | | [facility] | | | | | | [facility] | | | | | | [facility] | | | | | | CENTER | | | | | | LABORATORY | | + + + + + + | % | 7.2 (H) | 0.0 - 7.0 % | [facility] [...] + + + + | Absolute | 8.80 (H) | 1.90 - 7.40 | [facility] | | | Neutrophils | | K/uL | [facility] | | | | | | HE[facility] | | | | | | MEDICAL | | | | | | CENTER | | | | | | LABORATORY | | + + + + + + | Absolute | 0.90 (L) | 1.00 - 3.90 | [facility] | | | Lymphocytes | | K/uL | [facility] | | | | | | [facility] | | | | | | MEDICAL | | | | | | CENTER | | | | | | LABORATORY | | + + + + + + | Absolute | 0.70 | 0.00 - 0.80 | [facility] | | | Monocytes | | K/uL | [facility] | | | | | | HE[facility] | | | | | | MEDICAL | | | | | | CENTER | | | | | | LABORATORY | | + + + + + + | Absolute | 0.80 (H) | 0.00 - 0.50 | [facility] | [...] + + | [facility] | [address] | [place] [address] | | | [facility] | | | | | LABORATORY | | | | + + + + + LVEF VALUE (08/27/2016) + +-------+ + + + | Component | Value | Ref Range | Performed | Pathologist | | | | | At | Signature | + +-------+ + + + | LVEF-TTE | 55 | | | | | TRANSTHORAC | | | | | | IC ECHO | | | | | + +-------+ + + + Drugs of Abuse, Screen, Urine (08/26/2016 2:42 PM PST) + + + + + [...] + + + + | Methadone | Positive (A) | Negative | [facility] [...] | Cannabinoid | Positive (A)Comment: | Negative | [facility] | | | s Screen, | This entire battery is | | [facility] | | | Urine | for screening purposes | | HEART [...] + + | [facility] | [address] | [place] [address] | | | [facility] | | | | | LABORATORY | | | | + + + + + Respiratory pathogen panel, NAAT (08/26/2016 2:16 PM PST) + + + + + + | Component | Value | Ref Range | Performed | Pathologist | | | | | At | Signature | + + + + + + | Specimen | Nasopharyngeal | | [facility] | | | Source | | | [facility] | | | | | | [facility] | | | | | | MEDICAL | | | | | | CENTER | | | | | | LABORATORY | | + + + + + + | RESULT | Negative for all | | [facility] | | | | organisms tested. | | [facility] | | | | | | HE[facility] | | | | | | MEDICAL | | | | | | CENTER | | | | | | LABORATORY | | + + + + + + | RESULT | The following organisms | | [facility] | | | | were tested for by PCR: | | [facility] | | | | Adenovirus, Bordetella | | HEART | | | | pertussis, Chlamydophila | | MEDICAL | | | | pneumoniae, Coronavirus | | CENTER | | | | (HKU1, NL63, 229E and | | LABORATORY | | | | OC43), Influenza A (H1, | | | | | | H1 2009 and H3), | | | | | | Influenza B, | | | | | | Metapneumovirus, | | | | | | Mycoplasma pneumoniae, | | | | | | Parainfluenza (1, 2, 3 | | | | | | and 4), Respiratory | | | | | | Syncytial Virus and | | | | | | Rhinovirus/Enterovirus. | | | | + + + + + + | Status | 08/26/2016 Final | | [facility] | | | | | | [facility] | | | | | | [facility] | | | | | | [facility] | | | | | | [facility]ENTER | | | | | | LABORATORY | | + + + + + + + + | Specimen | + + | Respiratory sample | | (specimen) - | | Nasopharyngeal Swab | + + + + + + + | Performing | Address | City/State/Zipcode | Phone Number | | Organization | | | | + + + + + | [facility] | [address] | [place] [address] | | | [facility] | | | | | LABORATORY | | | | + + + + + VAS Lower Extremity Venous Bilateral (08/26/2016 11:42 AM PST) + + | Specimen | + + | | + + + + + | Narrative | Performed At | + + + | BILATERAL LOWER EXTREMITY VENOUS EXAM FOR DVT CLINICAL | [facility] | | INFORMATION: The patient is a 61 year-old female who presents to the | | | vascular lab with complaints of bilateral lower extremity pain and | | | elevated D-dimer. We have been asked to evaluate thebilateral lower | | | extremity for evidence of deep or superficial venous thrombus. | | | COMPARISON: None PROCEDURE: Color encoded duplex ultrasound was | | | used to evaluate the deep and superficial venous systems of bilateral | | | lower extremities. FINDINGS: Ultrasound exhibits normal vein | | | compressibility in the deep veins of the bilateral thigh(s). Doppler | | | signals obtained from the common femoral vein(s) exhibits no evidence | | | for iliocaval obstruction. The popliteal vein(s) is investigated, | | | compresses easily and appears patent. The great and small saphenous | | | veins are examined, compress easily and appear patent. The deep veins | | | of the bilateral calves are imaged and appear free from thrombus. | | | IMPRESSION: There is no evidence to suggest deep or superficial | | | venous thrombus in either lower extremity. Dictated by: | | | Myriam Le Signed by: Vinay Green The radiologist | | | has reviewed the images and edited/approved the report. For | | | interventional procedures, the signing radiologist was present for | | | the martinez portions of the exam. | | + + + + + | Procedure Note | + + | Tim, Rad Results In - 08/26/2016 12:07 PM PST | | | | BILATERAL LOWER EXTREMITY VENOUS EXAM FOR DVT | | | | CLINICAL INFORMATION: | | The patient is a 61 year-old female who presents to the vascular lab | | with complaints of bilateral lower extremity pain and elevated | | D-dimer. We have been asked to evaluate thebilateral lower extremity | | for evidence of deep or superficial venous thrombus. | | | | COMPARISON: | | None | | | | PROCEDURE: | | Color encoded duplex ultrasound was used to evaluate the deep and | | superficial venous systems of bilateral lower extremities. | | | | FINDINGS: | | Ultrasound exhibits normal vein compressibility in the deep veins of | | the bilateral thigh(s). Doppler signals obtained from the common | | femoral vein(s) exhibits no evidence for iliocaval obstruction. The | | popliteal vein(s) is investigated, compresses easily and appears | | patent. The great and small saphenous veins are examined, compress | | easily and appear patent. The deep veins of the bilateral calves are | | imaged and appear free from thrombus. | | | | IMPRESSION: | | There is no evidence to suggest deep or superficial venous thrombus | | in either lower extremity. | | | | | | Dictated by: Myriam Le | | | | Signed by: Vinay Green | | | | The radiologist has reviewed the images and edited/approved | | the report. For interventional procedures, the signing | | radiologist was present for the martinez portions of the exam. | | | + + + +---------+ + + | Performing | Address | City/State/Zipcode | Phone Number | | Organization | | | | + +---------+ + + | [facility] | | | | + +---------+ + + Iron and Iron Binding Capacity (08/26/2016 9:06 AM PST) + + + + + + | Component | Value | Ref Range | Performed | Pathologist | | | | | At | Signature | + + + + + + | Iron | <10 (L) | 30 - 180 ug/dL | [facility] | | | | [facility] | | | | | [facility] | | | | | | MED[facility] | | | | | | CENTER | | | | | | LABORATORY | | + + + + + + | TIBC | 309 | 260 - 490 ug/dL | [facility] | | | | | | [facility] | | | | | | [facility] | | | | | | MEDICAL | | | | | | CENTER | | | | | | LABORATORY | | + + + + + + | Iron | Unable to report Total | 15 - 50 % | [facility] | | | Saturation | Iron Saturation due to | | [facility] | | | | low Iron result. | | HEART | | | | [...] + + | [facility] | [address] | [place] [address] | | | [facility] | | | | | LABORATORY | | | | + + + + + D-Dimer (08/26/2016 7:58 AM PST) + + + + + + | Component | Value | Ref Range | Performed | Pathologist | | | | | At | Signature | + + + + + + | D-Dimer | >4.00 (H)Comment: This | <0.50 ug/mL FEU | [...] + + | [facility] | [address] | [place] [address] | | | [facility] | | | | | LABORATORY | | | | + + + + + CBC with Differential (08/26/2016 6:12 AM PST) + + + + + + | Component | Value | Ref Range | Performed | Pathologist | | | | | At | Signature | + + + + + + | WBC | 18.6 (H) | 3.8 - 11.0 K/uL | [facility] | | [facility] | [facility] | | [facility] | | [facility] | | | | | | MED[facility] | | | | | | CENTER | | | | | | LABORATORY | | + + + + + + | RBC | 3.37 (L) | 3.70 - 5.10 | [facility] | | | | | M/uL | [facility] | | | | | | [facility] | | | | | | MEDICAL | | | | | | CENTER | | | | | | LABORATORY | | + + + + + + | Hemoglobin | 9.6 (L) | 11.3 - 15.5 | [facility] | | | | | g/dL | [facility] | | | | | | HE[facility] | | | | | | MEDICAL | | | | | | CENTER | | | | | | LABORATORY | | + + + + + + | Hematocrit | 29.8 (L) | 34.0 - 46.0 % | [facility] | | | | | | [facility] | | | | | | [facility] | | | | | | MEDICAL | | | | | | CENTER | | | | | | LABORATORY | | + + + + + + | MCV | 88.4 | 80.0 - 100.0 fL | [facility] | | | | | | [facility] | | | | | | [facility] | | | | | | MEDICAL | | | | | | CENTER | | | | | | LABORATORY | | + + + + + + | MCH | 28.3 | 27.0 - 34.0 pg | [facility] | | | | | | [facility] | | | | | | [facility] | | | | | | MEDICAL | | | | | | CENTER | | | | | | LABORATORY | | + + + + + + | MCHC | 32.0 | 32.0 - 35.5 | [facility] | [...] + + + + | Platelet | 361 | 150 - 400 K/uL | [facility] [...] + + + + | % | 78.2 (H) | 40.0 - 75.0 % | [...] + + + | % Monocytes | 8.1 | 0.0 - 12.0 % | [facility] | | | | | | [facility] | | | | | | [facility] | | | | | | MEDICAL | | | | | | CENTER | | | | | | LABORATORY | | + + + + + + | % | 4.6 | 0.0 - 7.0 % | [facility] [...] + + + + | Absolute | 14.60 (H) | 1.90 - 7.40 | [facility] | | | Neutrophils | | K/uL | [facility] | | | | | | HE[facility] | | | | | | MEDICAL | | | | | | CENTER | | | | | | LABORATORY | | + + + + + + | Absolute | 1.60 | 1.00 - 3.90 | [facility] | | | Lymphocytes | | K/uL | [facility] | | | | | | HE[facility] | | | | | | MEDICAL | | | | | | CENTER | | | | | | LABORATORY | | + + + + + + | Absolute | 1.50 (H) | 0.00 - 0.80 | [facility] | | | Monocytes | | K/uL | [facility] | | | | | | HE[facility] | | | | | | MEDICAL | | | | | | CENTER | | | | | | LABORATORY | | + + + + + + | Absolute | 0.90 (H) | 0.00 - 0.50 | [facility] | [...] + + | [facility] | [address] | [place] [address] | | | [facility] | | | | | LAB[facility]ATORY | | | | + + + + + C-Reactive Protein (08/26/2016 6:12 AM PST) + + + + + + | Component | Value | Ref Range | Performed | Pathologist | | | | | At | Signature | + + + + + + | CRP | 14.0 (H)Comment: This | 0.0 - 1.5 mg/dL [...] + + + + + | [facility] | [address] | [place] [address] | | | [facility] | | | | | LABORATORY | | | | + + + + + Culture, Blood (08/25/2016 7:57 PM PST) + + + + + + | Component | Value | Ref Range | Performed | Pathologist | | | | | At | Signature | + + + + + + | Specimen | Blood LAC | | [facility] | | | Source [...] + + + + | Status | 08/31/2016 Final | | [facility] | | | [...] + + | [facility] | [address] | [place] [address] | | | [facility] | | | | | LAB[facility]ATORY | | | | + + + + + Lactic Acid (08/25/2016 7:47 PM PST) + +-------+ + + + | Component | Value | Ref Range | Performed | Pathologist | | | | | At | Signature | + +-------+ + + + | Lactate, | 1.1 | 0.5 - 2.2 | [facility] | [...] + | [facility] | [address] | [place] [address] | | | [facility] | | | | | LABORATORY | | | | + + + + + Sedimentation Rate (08/25/2016 7:47 PM PST) + +--------+ + + + | Component | Value | Ref Range | Performed | Pathologist | | | | | At | Signature | + +--------+ + + + | ESR | 66 (H) | 0 - 20 mm/h | [...] + | [facility] | [address] | [place] [address] | | | [facility] | | | | | LABORATORY | | | | + + + + + Procalcitonin (08/25/2016 7:47 PM PST) + + + + + + | Component | Value | Ref Range | Performed | Pathologist | | | | | At | Signature | + + + + + + | Procalciton | 0.61 (H)Comment: | <0.1 ng/mL | [facility] | | | in | Procalcitonin of <0.5 | | [facility] | | | | ng/mL represents a low | | HEART | | | | risk of severe sepsis | | MEDICAL | | | | and/or septic shock, but | | CENTER | | | | does not rule out | | LABORATORY | | | | infection. Procalcitonin | | | | | | levels between 0.5 and | | | | | | 2.0 ng/mL are considered | | | | | | indeterminate in regard | | | | | | to risk for severe | | | | | | sepsis and/or septic | | | | | | shock. Procalcitonin of | | | | | | >2.0 ng/mL represents a | | | | | | high risk of severe | | | | | | sepsis and/or septic | | | | | | shock, but can occur | | | | | | without infection. | | | | + + + + + + + + | Specimen | + + | Blood specimen | | (specimen) | + + + + + + + | Performing | Address | City/State/Zipcode | Phone Number | | Organization | | | | + + + + + | [facility] | [address] | [place] [address] | | | [facility] | | | | | LABORATORY | | | | + + + + + Culture, Blood (08/25/2016 7:47 PM PST) + + + + + + | Component | Value | Ref Range | Performed | Pathologist | | | | | At | Signature | + + + + + + | Specimen | Blood RH | | [facility] | | | Source [...] + + + + | Status | 08/31/2016 Final | | [facility] | | | [...] + + + + + | [facility] | [address] | [place] [address] | | | [facility] | | | | | LABORATORY | | | | + + + + + XR Chest AP Portable (08/25/2016 5:18 PM PST) + + | Specimen | + + | | + + + + + | Narrative | Performed At | + + + | CHEST PORTABLE ONE VIEW CLINICAL INFORMATION: Fall, hip | [facility] | | pain. COMPARISON: CHEST PORTABLE ONE VIEW dated 02/22/2015; XR | | | CHEST PA AND LATERAL dated 12/26/2014; CHEST TWO VIEWS dated 01/22/2011 | | | FINDINGS: Heart, lungs and vessels normal. No pneumothorax, | | | pleural effusion or adenopathy. No significant bone abnormality. | | | IMPRESSION: Negative chest. Dictated by: Brandon Reyna | | | Signed by: Brandon Reyna | | + + + + + | Procedure Note | + + | Presley Dumont Results In - 08/25/2016 5:24 PM PST | | | | CHEST PORTABLE ONE VIEW | | | | CLINICAL INFORMATION: | | Fall, hip pain. | | | | COMPARISON: | | CHEST PORTABLE ONE VIEW dated 02/22/2015; XR CHEST PA AND LATERAL | | dated 12/26/2014; CHEST TWO VIEWS dated 01/22/2011 | | | | FINDINGS: | | Heart, lungs and vessels normal. No pneumothorax, pleural effusion or | | adenopathy. No significant bone abnormality. | | | | IMPRESSION: | | Negative chest. | | | | Dictated by: Brandon Reyna | | | | Signed by: Brandon Reyna | + + + +---------+ + + | Performing | Address | City/State/Zipcode | Phone Number | | Organization | | | | + +---------+ + + | [facility] | | | | + +---------+ + + Urinalysis With Microscopic (08/25/2016 4:48 PM PST) + + + + + [...] + + + + | Specific | 1.015 | 1.001 - 1.030 | [facility] | | | [place] | | | [facility] | | | [...] + | WBC UA | <1 | <6 /hpf | [...] + + + + | SQUAMOUS | FewComment: Healthy | /lpf | [facility] | | [...] + + | YARELISDEMIEligio MATAMOROSFAUSTO | [address] | [place] [address] | | | [facility] | | | | | LAB[facility]ATORY | | | | + + + + + XR Pelvis 1 or 2 Vw (08/25/2016 4:27 PM PST) + + | Specimen | + + | | + + + + + | Narrative | Performed At | + + + | PELVIS ONE OR TWO VIEWS CLINICAL INFORMATION: Pelvis | [facility] | | broken in three places per patient. COMPARISON: PELVIS ONE OR TWO | | | VIEWS dated 09/27/2013; HIP TWO VIEWS dated 09/27/2013; ABD + DECUB | | | AND/OR ERECT dated 03/24/2013 FINDINGS: Bone density is low. | | | Subtle suggestion of superior and inferior pubic rami fractures on | | | the left, with intact sacrum on limited evaluation. There has | | | been progression of bilateral hip joint osteoarthrosis, severe | | | bilaterally, right greater than left. IMPRESSION: 1. Low bone | | | density with questionable left superior and inferior pubic rami | | | fractures. Inlet and outlet views may be appropriate for | | | confirmation if necessary. 2. Severe, right greater than left hip | | | joint osteoarthrosis, significantly progressive compared to | | | 09/27/2013 comparison. Dictated by: Roe Kimball Signed by: | | | Roe Kimball | | + + + + + | Procedure Note | + + | Tim, Rad Results In - 08/25/2016 4:37 PM PST | | | | PELVIS ONE OR TWO VIEWS | | | | CLINICAL INFORMATION: | | Pelvis broken in three places per patient. | | | | COMPARISON: | | PELVIS ONE OR TWO VIEWS dated 09/27/2013; HIP TWO VIEWS dated | | 09/27/2013; ABD + DECUB AND/OR ERECT dated 03/24/2013 | | | | FINDINGS: | | Bone density is low. Subtle suggestion of superior and inferior | | pubic rami fractures on the left, with intact sacrum on limited | | evaluation. | | | | There has been progression of bilateral hip joint osteoarthrosis, | | severe bilaterally, right greater than left. | | | | IMPRESSION: | | 1. Low bone density with questionable left superior and inferior | | pubic rami fractures. Inlet and outlet views may be appropriate for | | confirmation if necessary. | | 2. Severe, right greater than left hip joint osteoarthrosis, | | significantly progressive compared to 09/27/2013 comparison. | | | | Dictated by: Roe Kimball | | | | Signed by: Roe Kimball | + + + +---------+ + + | Performing | Address | City/State/Zipcode | Phone Number | | Organization | | | | + +---------+ + + | [facility] | | | | + +---------+ + + Basic Metabolic Panel (08/25/2016 3:52 PM PST) + + + + + + | Component | Value | Ref Range | Performed | Pathologist | | | | | At | Signature | + + + + + + | Na | 133 (L) | 135 - 145 | [facility] [...] + + + + | Cl | 99 | 99 - 109 mmol/L | [facility] [...] + + + + | Glucose | 127 (H)Comment: Serbian | 65 - 99 mg/dL | [facility] [...] + + + + | BUN | 19 | 8 - 25 mg/dL | [facility] | | [facility] | | | | | | LAB[facility]ATORY | | + + + + + + | Creatinine | 0.82Comment: IDMS | 0.50 - 1.00 | [facility] [...] [address] | [place] [address] | | | [facility] | | | | | [facility] | | | | + + + + + CBC no Differential (08/25/2016 3:52 PM PST) + + + + + + | Component | Value | Ref Range | Performed | Pathologist | | | | | At | Signature | + + + + + + | WBC | 20.9 (H) | 3.8 - 11.0 K/uL | [facility] | | [facility] | | | | | | LABORATORY | | + + + + + + | RBC | 3.56 (L) | 3.70 - 5.10 | [facility] | | | | | M/uL | [facility] | [facility] | | [facility] | | | | | | [facility] | | | | | | LABORATORY | | + + + + + + | Hemoglobin | 10.1 (L) | 11.3 - 15.5 | [facility] | | | | | g/dL | [facility] | [facility] | | | [facility] | | | | | | [facility] | | | | | | LABORATORY | | + + + + + + | Hematocrit | 31.6 (L) | 34.0 - 46.0 % | [facility] | | [facility] | | | [facility] | | | | | | LABORATORY | | + + + + + + | MCV | 88.8 | 80.0 - 100.0 fL | [facility] | | [facility] | | | | | [facility] | | | | | | LABORATORY | | + + + + + + | MCH | 28.4 | 27.0 - 34.0 pg | [facility] | | | | [facility] | | | | | [facility] | | | | | | LABORATORY | | + + + + + + | MCHC | 32.0 | 32.0 - 35.5 | [facility] | [...] + + + + | Platelet | 415 (H) | 150 - 400 K/uL | [...] + | [facility] | [address] | [place] [address] | | | [facility] | | | | | LABORATORY | | | | + + + + + documented in this encounter Visit Diagnoses + + | Diagnosis | + + | Leukocytosis, unspecified type - Primary | + + | Closed pelvic ring fracture, with routine healing, subsequent encounter | + + | Acute bronchitis, unspecified organism | + + | Bipolar affective disorder in remission (HCC) | + + | Ischemic cardiomyopathy Other specified forms of chronic ischemic heart disease | + + | Personal history of tobacco use, presenting hazards to health | + + | Elevated C-reactive protein (CRP) | + + | Elevated procalcitonin | + + | Positive D dimer Abnormal coagulation profile | + + | Normocytic anemia Anemia, unspecified | + + | Primary osteoarthritis involving multiple joints | + + | Tobacco abuse Tobacco use disorder | + + | Iron deficiency Other disorders of iron metabolism | + + documented in this encounter Admitting Diagnoses + + | Diagnosis | + + | Leukocytosis, unspecified type | + + | Closed pelvic ring fracture, with routine healing, subsequent encounter | + + documented in this encounter Administered Medications + +--------+ +--------+------+------+ | Medication Order | MAR | Action | Dose | Rate | Site | | | Action | Date | | | | + +--------+ +--------+------+------+ | acetaminophen (TYLENOL) tablet | Given | 08/28/20 | 650 mg | | | | 650 mg 650 mg, Oral, 4 TIMES | | 16 8:33 | | | | | DAILY, First dose on Fri08/26/16 | | AM PST | | | | | at 0900 | | | | | | + +--------+ +--------+------+------+ +-------+ +--------+---+---+ | Given | 08/27/20 | 650 mg | | | | | 16 8:32 | | | | | | PM PST | | | | +-------+ +--------+---+---+ | Given | 08/27/20 | 650 mg | | | | | 16 4:29 | | | | | | PM PST | | | | +-------+ +--------+---+---+ +---+---+ | | | +---+---+ + +-------+ + +---+---+ | adult multivitamin with | Given | 08/28/20 | 1 tablet | | | | minerals/iron tablet 1 tablet 1 | | 16 8:33 | | | | | tablet, Oral, DAILY, First dose | | AM PST | | | | | on Fri08/26/16 at 1100 | | | | | | + +-------+ + +---+---+ +-------+ + +---+---+ | Given | 08/27/20 | 1 tablet | | | | | 16 9:22 | | | | | | AM PST | | | | +-------+ + +---+---+ | Given | 08/26/20 | 1 tablet | | | | | 16 2:14 | | | | | | PM PST | | | | +-------+ + +---+---+ +---+---+ | | | +---+---+ + +-------+ + +---+---+ | amoxicillin-clavulanate | Given | 08/27/20 | 1 tablet | | | | (AUGMENTIN) 875-125 mg per tablet | | 16 9:23 | | | | | 1 tablet 1 tablet, Oral, 2 | | AM PST | | | | | TIMES DAILY, First dose on Sun | | | | | | | 08/25/16 at 2115, Indications: | | | | | | | Acute Bronchitis | | | | | | + +-------+ + +---+---+ +-------+ + +---+---+ | Given | 08/26/20 | 1 tablet | | | | | 16 8:12 | | | | | | PM PST | | | | +-------+ + +---+---+ | Given | 08/26/20 | 1 tablet | | | | | 16 8:10 | | | | | | AM PST | | | | +-------+ + +---+---+ +---+---+ | | | +---+---+ + +-------+ +-------+---+---+ | aspirin EC tablet 81 mg 81 mg, | Given | 08/28/20 | 81 mg | | | | Oral, DAILY, First dose on Mon | | 16 8:32 | | | | | 08/26/16 at 0900, Do not cut or | | AM PST | | | | | crush., | | | | | | + +-------+ +-------+---+---+ +-------+ +-------+---+---+ | Given | 08/27/20 | 81 mg | | | | | 16 9:22 | | | | | | AM PST | | | | +-------+ +-------+---+---+ | Given | 08/26/20 | 81 mg | | | | | 16 8:10 | | | | | | AM PST | | | | +-------+ +-------+---+---+ +---+---+ | | | +---+---+ + +-------+ +-------+---+---+ | atorvaSTATin (LIPITOR) tablet | Given | 08/27/20 | 40 mg | | | | 40 mg 40 mg, Oral, NIGHTLY, | | 16 8:32 | | | | | First dose on 08/26/16 at | | PM PST | | | | | 2100 | | | | | | + +-------+ +-------+---+---+ +-------+ +-------+---+---+ | Given | 08/26/20 | 40 mg | | | | | 16 8:13 | | | | | | PM PST | | | | +-------+ +-------+---+---+ +---+---+ | | | +---+---+ + + + +---------+---+---+ | calcium-vitamin D (OSCAL) 500 | Given by | 08/28/20 | 2 | | | | mg-200 units per tablet 2 tablet | Other | 16 7:34 | tablets | | | | 2 tablet, Oral, 3 TIMES DAILY | | AM PST | | | | | WITH MEALS, First dose on Mon | | | | | | | 08/26/16 at 0845 | | | | | | + + + +---------+---+---+ +-------+ +---------+---+---+ | Given | 08/27/20 | 2 | | | | | 16 4:29 | tablets | | | | | PM PST | | | | +-------+ +---------+---+---+ | Given | 08/27/20 | 2 | | | | | 16 1:40 | tablets | | | | | PM PST | | | | +-------+ +---------+---+---+ +---+---+ | | | +---+---+ + +-------+ +---------+---+---+ | carvedilol (COREG) tablet 6.25 | Given | 08/28/20 | 6.25 mg | | | | mg 6.25 mg, Oral, 2 TIMES DAILY | | 16 7:34 | | | | | WITH BREAKFAST & DINNER, First | | AM PST | | | | | dose on 08/25/16 at 2115 | | | | | | + +-------+ +---------+---+---+ +-------+ +---------+---+---+ | Given | 08/27/20 | 6.25 mg | | | | | 16 4:29 | | | | | | PM PST | | | | +-------+ +---------+---+---+ | Given | 08/27/20 | 6.25 mg | | | | | 16 9:23 | | | | | | AM PST | | | | +-------+ +---------+---+---+ +---+---+ | | | +---+---+ + +-------+ +---------+---+---+ | docusate-senna (SENOKOT-S) | Given | 08/28/20 | 2 | | | | 50-8.6 mg per tablet 2 tablet 2 | | 16 8:33 | tablets | | | | tablet, Oral, 2 TIMES DAILY, | | AM PST | | | | | First dose on 08/25/16 at | | | | | | | 2115 | | | | | | + +-------+ +---------+---+---+ +-------+ +---------+---+---+ | Given | 08/26/20 | 2 | | | | | 16 8:11 | tablets | | | | | AM PST | | | | +-------+ +---------+---+---+ | Given | 08/25/20 | 2 | | | | | 16 10:27 | tablets | | | | | PM PST | | | | +-------+ +---------+---+---+ +---+---+ | | | +---+---+ + +-------+ +-------+---+ + | enoxaparin (LOVENOX) 40 mg/0.4 | Given | 08/28/20 | 40 mg | | Abdomen- | | mL injection 40 mg 40 mg, | | 16 8:32 | | | RLQ | | Subcutaneous, EVERY 24 HOURS | | AM PST | | | | | (Daily), First dose on Mon | | | | | | | 08/26/16 at 0900 | | | | | | + +-------+ +-------+---+ + +-------+ +-------+---+ + | Given | 08/27/20 | 40 mg | | Abdomen- | | | 16 9:21 | | | LLQ | | | AM PST | | | | +-------+ +-------+---+ + | Given | 08/26/20 | 40 mg | | Abdomen- | | | 16 8:12 | | | RLQ | | | AM PST | | | | +-------+ +-------+---+ + +---+---+ | | | +---+---+ + +-------+ +---------+---+---+ | ergocalciferol (VITAMIN D-2) | Given | 08/25/20 | 50,000 | | | | capsule 50,000 Units 50,000 | | 16 10:28 | Units | | | | Units, Oral, WEEKLY, First dose | | PM PST | | | | | on 08/25/16 at 2115 | | | | | | + +-------+ +---------+---+---+ +---+---+ | | | +---+---+ + +-------+ +-------+---+---+ | FLUoxetine (PROzac) capsule 20 | Given | 08/28/20 | 20 mg | | | | mg 20 mg, Oral, DAILY, First | | 16 8:33 | | | | | dose on 08/26/16 at 0900 | | AM PST | | | | + +-------+ +-------+---+---+ +-------+ +-------+---+---+ | Given | 08/27/20 | 20 mg | | | | | 16 9:23 | | | | | | AM PST | | | | +-------+ +-------+---+---+ | Given | 08/26/20 | 20 mg | | | | | 16 8:11 | | | | | | AM PST | | | | +-------+ +-------+---+---+ +---+---+ | | | +---+---+ + +-------+ +------+---+---+ | HYDROmorphone (DILAUDID) | Given | 08/25/20 | 1 mg | | | | injection 1 mg 1 mg, | | 16 3:13 | | | | | Intravenous, ONCE, 08/25/16 | | PM PST | | | | | at 1505, For 1 dose | | | | | | + +-------+ +------+---+---+ +---+---+ | | | +---+---+ + +-------+ +------+---+---+ | HYDROmorphone (DILAUDID) | Given | 08/25/20 | 1 mg | | | | injection 1 mg 1 mg, | | 16 4:01 | | | | | Intravenous, ONCE, [place] 08/25/16 | | PM PST | | | | | at 1600, For 1 dose | | | | | | + +-------+ +------+---+---+ +---+---+ | | | +---+---+ + +-------+ +-------+---+---+ | hydrOXYzine pamoate (VISTARIL) | Given | 08/28/20 | 25 mg | | | | capsule 25-50 mg 25-50 mg, Oral, | | 16 7:14 | | | | | EVERY 6 HOURS PRN, Anxiety, | | AM PST | | | | | Starting 08/26/16 at 0823 | | | | | | + +-------+ +-------+---+---+ +-------+ +-------+---+---+ | Given | 08/28/20 | 25 mg | | | | | 16 6:04 | | | | | | AM PST | | | | +-------+ +-------+---+---+ | Given | 08/27/20 | 50 mg | | | | | 16 1:56 | | | | | | PM PST | | | | +-------+ +-------+---+---+ +---+---+ | | | +---+---+ + +---------+ +--------+-------+---+ | iron sucrose (VENOFER) 400 mg | New Bag | 08/27/20 | 400 mg | 108 | | | in sodium chloride 0.9% 250 mL | | 16 10:02 | | mL/hr | | | IVPB 400 mg, Intravenous, | | AM PST | | | | | Administer over 150 Minutes, | | | | | | | DAILY, First dose on Fri08/26/16 | | | | | | | at 1115, For 3 doses | | | | | | + +---------+ +--------+-------+---+ + + +--------+-------+---+ | Restarted | 08/26/20 | 400 mg | 108 | | | | 16 3:48 | | mL/hr | | | | PM PST | | | | + + +--------+-------+---+ | New Bag | 08/26/20 | 400 mg | 108 | | | | 16 1:23 | | mL/hr | | | | PM PST | | | | + + +--------+-------+---+ +---+---+ | | | +---+---+ + +-------+ +-------+---+---+ | ketorolac (TORADOL) injection | Given | 08/28/20 | 30 mg | | | | 30 mg 30 mg, Intravenous, EVERY | | 16 7:30 | | | | | 8 HOURS PRN, Pain, Starting Mon | | AM PST | | | | | 08/26/16 at 0830, For 5 days | | | | | | + +-------+ +-------+---+---+ +-------+ +-------+---+---+ | Given | 08/27/20 | 30 mg | | | | | 16 2:34 | | | | | | PM PST | | | | +-------+ +-------+---+---+ | Given | 08/27/20 | 30 mg | | | | | 16 6:18 | | | | | | AM PST | | | | +-------+ +-------+---+---+ +---+---+ | | | +---+---+ + +-------+ +-------+---+---+ | lisinopril (PRINIVIL, ZESTRIL) | Given | 08/28/20 | 20 mg | | | | tablet 20 mg 20 mg, Oral, DAILY, | | 16 8:33 | | | | | First dose on 08/26/16 at | | AM PST | | | | | 0900 | | | | | | + +-------+ +-------+---+---+ +-------+ +-------+---+---+ | Given | 08/27/20 | 20 mg | | | | | 16 9:22 | | | | | | AM PST | | | | +-------+ +-------+---+---+ | Given | 08/26/20 | 20 mg | | | | | 16 8:09 | | | | | | AM PST | | | | +-------+ +-------+---+---+ +---+---+ | | | +---+---+ + +-------+ +------+---+---+ | morphine injection 4-8 mg 4-8 | Given | 08/26/20 | 2 mg | | | | mg, Intravenous, EVERY 3 HOURS | | 16 4:52 | | | | | PRN, Pain, Starting 08/25/16 | | AM PST | | | | | at 2016 | | | | | | + +-------+ +------+---+---+ +-------+ +------+---+---+ | Given | 08/25/20 | 4 mg | | | | | 16 10:27 | | | | | | PM PST | | | | +-------+ +------+---+---+ +---+---+ | | | +---+---+ + +---------+ +---------+---+ + | nicotine (NICODERM) 14 mg/24 hr | Patch | 08/28/20 | 1 patch | | Deltoid- | | 1 patch 1 patch, Transdermal, | Applied | 16 9:00 | | | Left | | DAILY, First dose on 08/26/16 | | AM PST | | | | | at 0900 | | | | | | + +---------+ +---------+---+ + + + +---------+---+ + | Patch Applied | 08/27/20 | 1 patch | | Arm-Left | | | 16 9:21 | | | Upper | | | AM PST | | | | + + +---------+---+ + | Patch Applied | 08/26/20 | 1 patch | | Back-Lef | | | 16 9:56 | | | t Upper | | | AM PST | | | | + + +---------+---+ + +---+---+ | | | +---+---+ + +-------+ +------+---+---+ | ondansetron (ZOFRAN) injection | Given | 08/25/20 | 4 mg | | | | 4 mg 4 mg, Intravenous, ONCE, | | 16 3:13 | | | | | 08/25/16 at 1505, For 1 dose | | PM PST | | | | + +-------+ +------+---+---+ +---+---+ | | | +---+---+ + +-------+ +-------+---+---+ | oxyCODONE (oxyCONTIN) ER | Given | 08/27/20 | 10 mg | | | | abuse-deterrent tablet 10 mg 10 | | 16 1:41 | | | | | mg, Oral, EVERY 8 HOURS (3 times | | PM PST | | | | | per day), First dose on Sun | | | | | | | 08/25/16 at 2200, Do not cut or | | | | | | | crush., | | | | | | + +-------+ +-------+---+---+ +-------+ +-------+---+---+ | Given | 08/27/20 | 10 mg | | | | | 16 5:28 | | | | | | AM PST | | | | +-------+ +-------+---+---+ | Given | 08/26/20 | 10 mg | | | | | 16 10:00 | | | | | | PM PST | | | | +-------+ +-------+---+---+ +---+---+ | | | +---+---+ + +-------+ +-------+---+---+ | oxyCODONE (ROXICODONE) tablet | Given | 08/28/20 | 10 mg | | | | 5-10 mg 5-10 mg, Oral, EVERY 4 | | 16 8:33 | | | | | HOURS PRN, Pain, Starting Mon | | AM PST | | | | | 08/26/16 at 0820 | | | | | | + +-------+ +-------+---+---+ +-------+ +-------+---+---+ | Given | 08/28/20 | 10 mg | | | | | 16 4:30 | | | | | | AM PST | | | | +-------+ +-------+---+---+ | Given | 08/28/20 | 10 mg | | | | | 16 12:32 | | | | | | AM PST | | | | +-------+ +-------+---+---+ +---+---+ | | | +---+---+ + +-------+ +---------+---+---+ | oxyCODONE-acetaminophen | Given | 08/26/20 | 2 | | | | (PERCOCET) 5-325 mg per tablet | | 16 7:22 | tablets | | | | 1-2 tablet 1-2 tablet, Oral, | | AM PST | | | | | EVERY 4 HOURS PRN, Pain, Starting | | | | | | | 08/25/16 at 2017 | | | | | | + +-------+ +---------+---+---+ +-------+ +---------+---+---+ | Given | 08/26/20 | 2 | | | | | 16 3:07 | tablets | | | | | AM PST | | | | +-------+ +---------+---+---+ | Given | 08/25/20 | 2 | | | | | 16 8:47 | tablets | | | | | PM PST | | | | +-------+ +---------+---+---+ +---+---+ | | | +---+---+ + +-------+ +------+---+---+ | polyethylene glycol (MIRALAX) | Given | 08/26/20 | 17 g | | | | powder 17 g 17 g, Oral, DAILY | | 16 8:10 | | | | | PRN, Constipation, Starting Sun | | AM PST | | | | | 08/25/16 at 2048, If docusate and | | | | | | | senna ineffective or not | | | | | | | ordered., | | | | | | + +-------+ +------+---+---+ +---+---+ | | | +---+---+ + +-------+ +------+---+---+ | polyethylene glycol (MIRALAX) | Given | 08/28/20 | 17 g | | | | powder 17 g 17 g, Oral, DAILY, | | 16 8:32 | | | | | First dose (after last | | AM PST | | | | | modification) on Fri08/27/16 at | | | | | | | 0900, If docusate and senna | | | | | | | ineffective or not ordered., | | | | | | + +-------+ +------+---+---+ +---+---+ | | | +---+---+ + +-------+ +--------+---+---+ | QUEtiapine (SEROquel) tablet | Given | 08/27/20 | 100 mg | | | | 100 mg 100 mg, Oral, NIGHTLY, | | 16 8:32 | | | | | First dose on 08/25/16 at | | PM PST | | | | | 2115 | | | | | | + +-------+ +--------+---+---+ +-------+ +--------+---+---+ | Given | 08/26/20 | 100 mg | | | | | 16 8:13 | | | | | | PM PST | | | | +-------+ +--------+---+---+ | Given | 08/25/20 | 100 mg | | | | | 16 10:53 | | | | | | PM PST | | | | +-------+ +--------+---+---+ +---+---+ | | | +---+---+ + +-------+ +--------+---+---+ | traMADol (ULTRAM) tablet 100 mg | Given | 08/28/20 | 100 mg | | | | 100 mg, Oral, EVERY 6 HOURS | | 16 7:14 | | | | | PRN, Pain, Starting 08/26/16 | | AM PST | | | | | at 0821 | | | | | | + +-------+ +--------+---+---+ +-------+ +--------+---+---+ | Given | 08/27/20 | 100 mg | | | | | 16 7:38 | | | | | | PM PST | | | | +-------+ +--------+---+---+ | Given | 08/26/20 | 100 mg | | | | | 16 7:32 | | | | | | PM PST | | | | +-------+ +--------+---+---+ [...]
--- OUTSIDE RECORDS SUMMARY | ~2019-08-21 | XMS | Encounter Summary ---
Demographics + + + | Address | [address] | | | [place] [address] | + + + | Home Phone [...] + | Author | [facility] | | | and Ankitana | + + + | Organization | [facility] | [...] Team Providers + +------+ + | Care Private Advisor Name | Role | Phone | + [...] + + | 11/25/ | Office | [facility] | Carol, | Hypertension, | | 2019 | Visit | CARDIOLOGY [address] | [place] [address] | unspecified type | | | | [place], | [place], | (Primary Dx); | | | | [place] [address] | [place] [address] | Ischemic | | | | [phone] | [phone] | cardiomyopathy; | | | | | [...] encounter Patient Instructions Patient Instructions Dayana Chan, Accounting Systems Manager - 11/25/2018 10:45 AM PST 1. Start taking lisinopril 20 mg twice daily by mouth to help with your blood pressure . 2. You will check your blood pressure and pulse twice daily for two weeks and return the lo g to our office. 3. You will need to go to get your labs (BMP) drawn at [facility] . 4. Please follow up in [...] sodium in extra because of eating out angolan food for the last weeks Her energy [...] chronic, stage II (GFR 60-89 ml/min) H/O VA (myocardial infarction) Hepatitis C Risk factors for [...] Abnormal ECG Confirmed by MARIANGEL WALTON MD ([id number]) on 10/01/2018 12:13:49 PM LAB RESULTS reviewed during visit today primarily from [facility]: LIPID No results found for: CHOL, [...] arrest post unknown stenting in 2011 at [facility] in [place] B. Echocardiogram 2D , M-mode, Doppler and [...] the inferior and lateral castillo from prior VA, mild destinee infarct ischemia. LARGE SEVERE inferior and Lateral VA. By Shad Schuler MD G. Left heart [...] unction. Trace TR, pulmonic valve normal Trace [place], visible portions of ascending aorta and a [...] II- Symptoms with moderate exertion of the [place] [employer] functional class. 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 Discussed the results of the echocardiogram. She has a appointment with [facility] in a few weeks. [...] this chart may have been created with [employer] voice recognition software. Occasi onal wrong-word or [...] | | | | | | [place] [address] | | | | | | [phone] | | | | | | | | +--------+---------+ + + + | 10/28/ | Office | Cardiology | Carol, | | | 2019 | Visit | | [place] [address] | | | | | | [place], | | | | | | [place] [address] | | | | | | [phone] | | | | | | | [...] of unspecified type of | | vessel, [place] or graft | + + documented in this encounter
--- OUTSIDE RECORDS SUMMARY | ~2019-08-21 | XMS | Encounter Summary ---
Demographics + + + | Address | [address] | | | [place] [address] | + + + | Home Phone [...] + | Author | [facility] | | | and Ankitana | + + + | Organization | [facility] | [...] Team Providers + +------+ + | Care Entertainment Manager Name | Role | Phone | [...] | | NEUROLOGY [address] | [place] [address] | (Primary Dx); Closed | | 08/28/ | | [address] [place] | [phone] | pelvic ring | | 2016 | | [phone] | | fracture, with | | | | [phone] | Pablo Booth | routine healing, | | | | | Claudia, DO [address] | subsequent | | | | | [address] [place], | encounter; Acute | | | | | [place] [address] | bronchitis, | | | | | [phone] | unspecified | | | | | | organism; Bipolar | | | | | Maite Delacruz MD | affective disorder | | | | | [address] | in remission (HCC); | | | | | [place], [place] | Ischemic | | | | | [address] | cardiomyopathy; | | | | | [...] iron deficiency anemia FOLLOW UP: SALVATORE Ventura [address] [facility] [id number] Go to next available appointment [facility] [address] [facility] [phone] DISCHARGE DISPOSITION: Home with Home Health CONSULTANTS THIS ADMISSION: None HOSPITAL COURSE: Ms. Pichardo is a 61-year-old female admitted to [facility] on N ovember 11 for a left inferior and superior pubic rami fractures and a right sacral alar fra cture. She was discharged to home November 15 with home health services and has reportedly done poorly with uncontrolled pain. Home Health staff advised readmission for evaluation for acute inpatient rehabililtation, but she was sent to [facility]. She was de nied admission to [facility]. She was noted to have a marked [...] Unknown Yellow Clarity, UA Unknown Clear Specific [place] Latest Ref Range: 1.001-1.030 1.015 PH UA [...] provider to follow patient YOLANDA RICHMOND Ernestine Therapy Administrative Assistant needed No TIME SPENT ON DISCHARGE: greater than 30 minutes / Observation Stay Electronically signed by: Pablo Booth DO 08/28/2016 18:03Electronically si gned by Pablo Booth DO at 08/28/2016 6:03 PM PSTdocumented in this encount er Discharge Instructions AttachmentsThe following attachments cannot be sent through Care Everywhere.ANEMIA, IRON-DE FICIENCY (ADULT) (PORTUGUESE)OSTEOPOROSIS, LIVING WITH: PREVENTING FRACTURES (PORTUGUESE)documente d in this encounter Medications at Time [...] G-D tr. Pt to stay with Dtr [place] [id number] [facility] # [phone]. Electronically signed by: Rhona Ledesma RN 08/27/2016 [...] Date of Service: 08/27/2016 PCP: Yolanda Richmond [employer] Hospital Day: Hospital Course: Ms. Pichardo is a 61-year-old female admitted to [facility] on N ov 11 for a left inferior and superior pubic rami fractures and a right sacral alar fra cture. She was discharged to home August 20 with home health services and has reportedly done poorly with uncontrolled pain. Home Health staff advised readmission for evaluation for acute inpatient rehabililtation, but she was sent to [facility] instead of [facility]. She was noted to have a marked leukocytosis and elevated CRP of unclear significance. Assessment and Plan: Ms. Pichardo's chart was reviewed in detail, and she was seen and examined by me. 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 Disc harged home with home health and admitted to [facility] for intractable pain. Taking Oxy 10mg Q4h [...] Date of Service: 08/26/2016 PCP: Yolanda Richmond [facility] Day: Hospital Course: Ms. Pichardo is a 61-year-old female admitted to [facility] on for a left inferior and superior pubic rami fractures and a right sacral alar fra cture. She was discharged to home August 20 with home health services and has reportedly done poorly with uncontrolled pain. Home Health staff advised readmission for evaluation for acute inpatient rehabililtation, but she was sent to [facility] instead of [facility]. She was noted to have a marked leukocytosis and elevated CRP of unclear significance. Assessment and Plan: Ms. Pichardo's chart was reviewed in detail, and she was seen and examined by me. Assessment of active problems addressed today: Active Hospital Problems Diagnosis Closed pelvic ring fracture, with routine healing, subsequent encounter: she was sent h ome with home health for continued PT from [facility] - await repeat PT / OT evaluations [...] to a SNF from her admission at [facility] (toxicology screen ordered this am). Review [...] Single Lumen 08/25/16 2216 Left Lateral Forearm kets-qfs-qcwcmb [address] ter system 22 gauge;1 in length [...] Negative KETONES UA Negative Negative mg/dL Specific [place] 1.015 1.001 - 1.030 PH UA 7.0 [...] Removed therapy: Atorvastatin 40 mg (not taking) RADIOLOGY PHYSICIAN Medications Taking Prior to Admission medications Medication [...] [x] [] Tdap [] [] [x] [] RADIOLOGY PHYSICIAN Med List Sources Medications reported by the patient were confirmed via: [x] Verbal interview (able to recall drug name, strength, frequency, etc.) [] Provided a complete current medication list [] Medication bottles [] MAR from SNF facilities: [x] Pharmacy - list names if received from multiple pharmacies: [facility] [] Doctor's office: [x] [employer] insurance reported information [] Care Everywhere [] [place] Prescription Monitoring Program [] Other sources: Medication history performed and electronically signed by Azra Hernandez, V Belt Skiver 08/25 18:25 Associated attestation - George Sultana PharmD - 08/25/2016 6:42 PM PSTReviewed RADIOLOGY PHYSICIAN med l ist changes and agree with discrepancies noted by planning technician. Electronically signed by: George Sultana PHARMD 08/25/2016 18:42 Claudia Nguyễn Greaser Operator-Clinical - 08/25/2016 6:15 PM PSTSLRI case management rn receive d referral. Clinical information reviewed. Await therapy input to assess IPR determination. Will follow progress for discharge recommendations. Electronically signed by: Claudia Nguyễn TIRE CHANGER AIRCRAFT 08/25/2016 18:15 documented in this encounter Plan [...] | | | | | | [place] [address] | | | | | | [phone] | | | | | | | | +--------+---------+ + + + | 10/28/ | Office | Cardiology | Carol, | | | 2019 | Visit | | SALVATORE Moreno [address] | | | | | | [place], | | | | | | [place] [address] | | | | | | [phone] | | | | | | | [...] + | [facility] | [address] | [place] [address] | | | [facility] | [...] + + | YARELISDEMIEligio CARDONA | [address] | [place] [address] | | | [facility] | | | | | [...] | ANNE MARIE PICHARDO Study Date: 08/27/2016MRN: [id number] | | | Patient Location: [facility]45DOB: 1955 | | | Age: 61 yrs Gender: | | | FemaleHeight: 62 in Weight: 140 lb | | | BSA: 1.6 m2 | | | HR: 81 Rhythm: SRHistory: CAD, | | | ACUTE UT, ICM, HTN, ANXIETY, DEPRESSIONReason For Study: murmur, [...] | |Ordering Physician: PABLO BOOTH | | |Carbonation Equipment Tender: Parish Diaz | | |[id number]: | | | | | + + ---+ + + | Procedure Note | + + | Tim, Rad Results In - 08/27/2016 1:35 PM PST | | Adult Echo | | Report | | | | Name: ANNE MARIE PICHARDO Study Date: 08/27/2016 | | Patient Location: [place] [address] | | : 1955 Age: 61 yrs Gender: Female | | Height: 62 in Weight: 140 lb BSA: 1.6 m2 | | HR: 81 Rhythm: SR | | History: CAD, ACUTE UT, ICM, HTN, ANXIETY, DEPRESSION | | Reason [...] | Ordering Physician: PABLO BOOTH | | Carbonation Equipment Tender: Parish Diaz | | [id number]: | + + Procalcitonin (08/27/2016 5:30 AM [...] + + | AMILCAR [facility] | [address] | [place] [address] | | | [facility] | | | | | [...] + | [facility] | [address] | [place] [address] | | | [facility] | [...] + + | AMILCAR CARDONA | [address] | [place] [address] | | | [facility] | | | | | LABORATORY [...] + + | [facility] | [address] | [place] [address] | | | [facility] | | | | | [...] + + | AMILCAR CARDONA | [address] | [place] [address] | | | [facility] | | | | | LABORATORY [...] + + | AMILCAR CARDONA | [address] | [place] [address] | | | [facility] | | | | | [...] + + | YARELISDEMIEligio MATAMOROSFAUSTO | [address] | [place] [address] | | | [facility] | | | | | [...] + + | AMILCAR CARDONA | [address] | [place] [address] | | | [facility] | [...] + + | YARELISDEMIEligio CARDONA | [address] | [place] [address] | | | [facility] | | | | | [...] + + | [facility] | [address] | [place] [address] | | | [facility] | [...] + | AMILCAR CARDONA | [address] | [place] [address] | | | [facility] | | | | | [...] + | [facility] | [address] | [place] [address] | | | [facility] | [...] + + | AMILCAR CARDONA | [address] | [place] [address] | | | [facility] | | | | | [...] + | YARELISDEMIEligio CARDONA | [address] | [place] [address] | | | [facility] | | | | | [...] - 1.030 | [facility] | | | [place] | | | [facility] | | | [...] + + | YARELISDEMIEligio MATAMOROSFAUSTO | [address] | [place] [address] | | | [facility] | | | | | [...] + + | Glucose | 127 (H)Comment: Uzbek | 65 - 99 mg/dL | [facility] [...] [address] | [place] [address] | | | [facility] | | | | | [...] + | [facility] | [address] | [place] [address] | | | [facility] | [...] | | | | | Intravenous, ONCE, [place] 08/25/16 | | PM PST | | [...]
--- OUTSIDE RECORDS SUMMARY | ~2019-08-21 | XMS | Encounter Summary ---
Demographics + + + | Address | [address] | | | [place] [address] | + + + | Home Phone | | + + + | Preferred Language | Unknown | + + + | Marital Status | | + + + | Temple Affiliation | 1041 | + + + | Race | Unknown | + + + | Ethnic Group | Unknown | + + + Author + + + | Author | [facility] | | | and Ankitana | + + + | Organization | [facility] | | [...] Team Providers + +------+ + | Care Yarn Sorter Name | Role | Phone | + +------+ + | Kiran Oneill DO | PCP | | + +------+ + Encounter Details +--------+---------+ + + + | Date | Type | Department | Care Team | Description | +--------+---------+ + + + | 09/10/ | Surgery | YARELISDEKarly [facility]ER | [facility] W, | RIGHT EXTRACTION | | 2018 | | MED CTR OR INTRA OP | MD [address] | CATARACT WITH LENS | | | | [address] | [place], [place] | IMPLANT | | | | [place], [place] | [address] | | | | | [address] | | | | | | [phone] | | | +--------+---------+ + + + [...] + + + | Blood Pressure | 148/74 | 09/10/2018 3:35 PM | | | | | PST | | + + + + + | Pulse | 64 | 09/10/2018 3:45 PM | | | | | PST | | + + + + + | Temperature | 36.1 C (97 F) | 09/10/2018 3:20 PM | | | | | PST | | + + + + + | Respiratory Rate | 16 | 09/10/2018 3:35 PM | | | | | PST | | + + + + + | Oxygen Saturation | 98% | 09/10/2018 3:45 PM | | | | | PST | | + + + + + | Inhaled Oxygen | - | - | | | Concentration | | | | + + + + + | Weight | 77.7 kg (171 lb 4.8 | 09/10/2018 12:42 PM | | | | oz) | PST | | + + + + + | Height | 172.7 cm (5' 8") | 09/10/2018 12:42 PM | | | | | PST | | + + + + + | Body Mass Index | 26.05 | 09/10/2018 12:42 PM | | | | | PST [...] VO | | | | | | [place] [address] | | | | | | [phone] | | | | | | | | +--------+---------+ + + + | 10/28/ | Office | Cardiology | Carol, | | | 2019 | Visit | | SALVATORE Moreno [address] | | | | | | [place], | | | | | | [place] [address] | | | | | | [phone] | | | | | | | | +--------+---------+ + + + documented as of this encounter Procedures + +--------+ + + + | Procedure Name | Priori | Date/Time | Associated Diagnosis | Comments | | | ty | | | | + +--------+ + + + | EXTRACTION CATARACT | | 09/10/2018 | Age-related | | | W/ OR W/O LENS | | 2:35 PM | nuclear cataract of | | | IMPLANT | | PST | right eye | | + +--------+ + + + documented in this encounter Visit Diagnoses + + | Diagnosis | + + | Age-related nuclear cataract of right eye Senile nuclear sclerosis | + + documented in this encounter Administered Medications + +--------+---------+------+------+------+ | Medication Order | MAR | Action | Dose | Rate | Site | | | Action | Date | | | | + +--------+---------+------+------+------+ + +---+ | acetaminophen (TYLENOL) tablet | | | 325-650 mg 325-650 mg, Oral, | | | EVERY 4 HOURS PRN, Pain, Starting | | | [facility] 12/03/23 at 1529, | | | Post-op/Phase II | | + +---+ | | | + +---+ | albuterol 2.5 mg/3 mL nebulizer | | | solution 2.5 mg 2.5 mg, | | | Nebulization, ONCE PRN, Wheezing, | | | Starting [facility] 12 at 1516, | | | For 1 dose, Notify anesthesia if | | | patient is wheezing and does not | | | have a history of asthma or COPD | | | or current smoking., | | | Recovery/Phase I | | + +---+ | | | + +---+ | atropine 0.1 mg/mL syringe 0.5 | | | mg 0.5 mg, Intravenous, PRN, | | | Bradycardia, For HR < 40, | | | Starting [facility] 12/18 at 1516, For | | | 2 doses, May repeat one time | | | after 1 min., Recovery/Phase I | | + +---+ | | | + +---+ + +-------+ + +---+ + | balanced salts sterile | Given | 09/10/20 | 1 | | Surgical | | ophthalmic irrigation solution | | 18 2:50 | Applicat | | Site | | PRN, Starting [facility] 09/10/18 at | | PM PST | ion | | | | 1450, Intra-op | | | | | | + +-------+ + +---+ + + +---+ | | | + +---+ | dextrose 50% injection 12.5-25 | | | g 12.5-25 g, Intravenous, EVERY | | | 15 MIN PRN, Low Blood Sugar, Give | | | 12.5g (25 mL) IV if blood | | | glucose 50-69 mg/dL. Give 25g | | | (50 mL) IV if blood glucose < 50, | | | Starting [facility] 09/10/18 at 1244, | | | Repeat in 15 min if blood glucose | | | remains < 70 mg/dL. Repeat | | | blood glucose in 30 min once | | | blood glucose > 70., Pre-op | | + +---+ | | | + +---+ | dextrose 50% injection 12.5-25 | | | g 12.5-25 g, Intravenous, EVERY | | | 15 MIN PRN, Low Blood Sugar, For | | | hypoglycemia. Give 12.5g (25ml) | | | IV if blood glucose 50-69 | | | mg/dL. Give 25g (50ml) IV if | | | blood glucose < 50, Starting [facility] | | | 09/10/18 at 1516, Give over 2 min. | | | Repeat in 15 min if blood | | | glucose remains < 70 mg/dL. | | | Repeat blood glucose in 30 min | | | once blood glucose > 70., | | | Recovery/Phase I | | + +---+ | | | + +---+ | ePHEDrine 50 mg/mL injection 5 | | | mg 5 mg, Intravenous, EVERY 5 | | | MIN PRN, if SBP <90., Starting | | | [facility] 09/10/18 at 1516, Hold if HR > | | | 100. Maximum total dose 20mg., | | | Recovery/Phase I | | + +---+ | | | + +---+ + +-------+ +--------+---+ + | EPINEPHrine 1 mg/mL injection | Given | 09/10/20 | 0.4 mg | | Surgical | | PRN, Starting [facility] 09/10/18 at | | 18 2:50 | | | Site | | 1450, Intra-op | | PM PST | | | | + +-------+ +--------+---+ + + +---+ | | | + +---+ | fentaNYL (PF) injection 25-50 | | | mcg 25-50 mcg, Intravenous, | | | EVERY 5 MIN PRN, Pain, Starting | | | [facility] 09/10/18 at 1516, Maximum | | | total dose 250 mcg. PACU IV | | | Narcotic Priority: Only use | | | fentanyl for immediate post-op | | | pain (one dose) or breakthrough | | | pain when any other IV narcotics | | | ordered have been ineffective (if | | | ordered). If both morphine and | | | hydromorphone are ordered, use | | | morphine first, and use | | | hydromorphone if morphine | | | ineffective., Recovery/Phase I | | + +---+ | | | + +---+ + +-------+ +--------+---+---+ | flurbiprofen (OCUFEN) 0.03% | Given | 09/10/20 | 1 drop | | | | ophthalmic solution 1 drop 1 | | 18 1:04 | | | | | drop, Right Eye, EVERY 5 MIN, | | PM PST | | | | | First dose on [facility] 09/10/18 at | | | | | | | 1315, For 3 doses, Use 1 drop | | | | | | | every 5 minutesbefore surgery | | | | | | | (total of 3 drops)., Pre-op | | | | | | + +-------+ +--------+---+---+ +-------+ +--------+---+---+ | Given | 09/10/20 | 1 drop | | | | | 18 12:58 | | | | | | PM PST | | | | +-------+ +--------+---+---+ | Given | 09/10/20 | 1 drop | | | | | 18 12:51 | | | | | | PM PST | | | | +-------+ +--------+---+---+ +---+---+ | | | +---+---+ + +-------+ +-------+---+ + | hyaluronate & chondroitin | Given | 09/10/20 | 1 kit | | Surgical | | hyaluronate (DUOVISC) intraocular | | 18 2:51 | | | Site | | kit PRN, Starting [facility] 09/10/18 | | PM PST | | | | | at 1451, Intra-op | | | | | | + +-------+ +-------+---+ + + +---+ | | | + +---+ | HYDROmorphone (DILAUDID) | | | injection 0.2-0.5 mg 0.2-0.5 mg, | | | Intravenous, EVERY 5 MIN PRN, | | | Pain, Starting [facility] 09/10/18 at | | | 1516, Maximum total dose 4 mg. | | | PACU IV Narcotic Priority: Only | | | use fentanyl for immediate | | | post-op pain (one dose) or | | | breakthrough pain when any other | | | IV narcotics ordered have been | | | ineffective (if ordered). If | | | both morphine and hydromorphone | | | are ordered, use morphine first, | | | and use hydromorphone if morphine | | | ineffective., Recovery/Phase I | | + +---+ | | | + +---+ + +---------+ +---+---+---+ | lactated ringers (LR) [...] PST | | | | +---------+ +---+-------+---+ + +---+ | | | + +---+ | meperidine (DEMEROL) injection | | | 12.5-25 mg 12.5-25 mg, | | | Intravenous, PRN, Shivering, | | | Starting [facility] 09/10/18 at 1516, For | | | 2 doses, May Repeat once in 5 | | | min., Recovery/Phase I | | + +---+ | | | + +---+ | midazolam (VERSED) 1 mg/mL | | | injection 0.5-2 mg 0.5-2 mg, | | | Intravenous, EVERY 5 MIN PRN, | | | Anxiety, or agitation, Starting | | | [facility] 09/10/18 at 1516, Maximum | | | total dose 2 mg., Recovery/Phase | | | I | | + +---+ | | | + +---+ + +-------+ +--------+---+ + | moxifloxacin (VIGAMOX) 0.5 % | Given | 09/10/20 | 0.5 mg | | Eye-Righ | | intracameral injection PRN, | | 18 2:51 | | | t | | Starting [facility] 09/10/18 at 1451, | | PM PST | | | | | Intra-op | | | | | | + +-------+ +--------+---+ + + +---+ | | | + +---+ | ondansetron (ZOFRAN) injection | | | 4 mg 4 mg, Intravenous, ONCE | | | PRN, Nausea, Starting [facility] 09/10/18 | | | at 1516, For 1 dose, | | | Recovery/Phase I | | + +---+ | | | + +---+ + +-------+ +--------+---+---+ | phenylephrine (HADLEY-SYNEPHRINE) | Given | 09/10/20 | 1 drop | | | | 2.5% ophthalmic solution 1 drop | | 18 1:04 | | | | | 1 drop, Right Eye, EVERY 5 MIN | | PM PST | | | | | PRN, prep eye for procedure, | | | | | | | Starting [facility] 09/10/18 at 1244, For | | | | | | | 3 doses, Pre-op | | | | | | + +-------+ +--------+---+---+ +-------+ +--------+---+---+ | Given | 09/10/20 | 1 drop | | | | | 18 12:58 | | | | | | PM PST | | | | +-------+ +--------+---+---+ | Given | 09/10/20 | 1 drop | | | | | 18 12:51 | | | | | | PM PST | | | | +-------+ +--------+---+---+ +---+---+ | | | +---+---+ + +-------+ +--------+---+---+ | povidone-iodine 5 % ophthalmic | Given | 09/10/20 | 1 drop | | | | solution PRN, Starting [facility]carm[facility] | | 18 2:40 | | | | | 09/10/18 at 1440, Intra-op | | PM PST | | | | + +-------+ +--------+---+---+ +---+---+ | | | +---+---+ + +-------+ +--------+---+---+ | proparacaine (ALCAINE) 0.5% | Given | 09/10/20 | 1 drop | | | | ophthalmic solution 1 drop 1 | | 18 1:04 | | | | | drop, Right Eye, EVERY 5 MIN PRN, | | PM PST | | | | | prep eye for procedure, Starting | | | | | | | [facility] 09/10/18 at 1244, For 3 | | | | | | | doses, Pre-op | | | | | | + +-------+ +--------+---+---+ +-------+ +--------+---+---+ | Given | 09/10/20 | 1 drop | | | | | 18 12:58 | | | | | | PM PST | | | | +-------+ +--------+---+---+ | Given | 09/10/20 | 1 drop | | | | | 18 12:50 | | | | | | PM PST | | | | +-------+ +--------+---+---+ +---+---+ | | | +---+---+ + +-------+ +--------+---+ + | triamcinolone acetonide | Given | 09/10/20 | 2.5 mg | | Surgical | | (KENALOG-10) 10 mg/mL injection | | 18 2:52 | | | Site | | PRN, Starting [facility] 09/10/18 at | | PM PST | | | | | 1452, Intra-op | | | | | | + +-------+ +--------+---+ + +---+---+ | | | +---+---+ + +-------+ +--------+---+---+ | tropicamide (MYDRIACYL) 1% | Given | 09/10/20 | 1 drop | | | | ophthalmic solution 1 drop 1 | | 18 1:04 | | | | | drop, Right Eye, EVERY 5 MIN PRN, | | PM PST | | | | | prep eye for procedure, Starting | | | | | | | [facility] 09/10/18 at 1244, For 3 | | | | | | | doses, Pre-op | | | | | | + +-------+ +--------+---+---+ +-------+ +--------+---+---+ | Given | 09/10/20 | 1 drop | | | | | 18 12:58 | | | | | | PM PST | | | | +-------+ +--------+---+---+ | Given | 09/10/20 | 1 drop | | | | | 18 12:51 | | | | | | PM PST | | | | +-------+ +--------+---+---+ +---+---+ | | | +---+---+ documented in this encounter
--- OUTSIDE RECORDS SUMMARY | ~2019-08-21 | XMS | Encounter Summary ---
Demographics + + + | Address | [address] | | | [place] [address] | + + + | Home Phone [...] [facility] | | | and Ankitana | + + + | Organization | [facility] | | | and Ankitana | [...] Team Providers + +------+ + | Care Hand Edger Name | Role | Phone | + +------+ + | Yolanda Lee | PCP | | + +------+ + Encounter Details +--------+---------+ + + + | Date | Type | Department | Care Team | Description | +--------+---------+ + + + | 08/13/ | Surgery | [facility] | Seamus Richard, | LEFT EXTRACTION | | 2018 | | MED CTR OR INTRA OP | MD [address] | CATARACT WITH LENS | | | | [address] | [place], [place] | IMPLANT | | | | [place], [place] | [address] | | | | | [address] | | | | | | [phone] | | | +--------+---------+ + + + [...] | | | | | | [place] [address] | | | | | | [phone] | | | | | | | | +--------+---------+ + + + | 10/28/ | Office | Cardiology | Carol, | | | 2019 | Visit | | SALVATORE Moreno [address] | | | | | | [place], | | | | | | [place] [address] | | | | | | [phone] | | | | | | | [...] | | | | LARA WOODS MD ([id number]) | | | | | | on [...] not | 56 (L)Comment: | >=60 | [facility] | | | | GLOMERULAR FILTRATION | mL/min/1.73m2 | [facility] | | | SURINAMESE | RATE,ESTIMATED | | MEDICAL | | | | mL/min/1.73l6Mpvn than | | CENTER - | | [...] | | bulin Ratio | | | [facility] | | | | | | MEDICAL | | | | | | CENTER - | | | | | | LABORATORY | | + + + + + + | BUN/Creatin | 28.0 | | [facility] | | | ine Ratio | | | [facility] | | [...] + + + + + | [facility] | [address] | [place] | [phone] | | [facility] | | [address] | | | - LABORATORY | | [...] | | Count | | | [facility] | | [...] | | | | WBC's | [facility] | | | | [...] [address] | [place] | [phone] | | [facility] | | [address] | | | - LABORATORY | | [...] ONCE PRN, Wheezing, | | | Starting [facility] 08/13/18 at 1222, | | | For [...] | | | | | | Starting [facility] 08/13/18 at 1034, For | | | [...] | | Site | | PRN, Starting [facility] 08/13/18 at [...] eye for procedure, Starting | | | [facility] 08/13/18 at 1034, For 3 doses, | | | Pre-op | | + +---+ | | | + +---+ + +-------+ +--------+---+ + | EPINEPHrine 1 mg/mL injection | Given | 08/13/20 | 0.4 mg | | Surgical | | PRN, Starting [facility] 08/13/18 at | | 18 12:17 | [...] | | | | First dose on [facility] 08/13/18 at | | | | | [...] | | | | kit PRN, Starting [facility] 08/13/18 | | PM PST | | | | | at 1217, Intra-op | | | | | | + +-------+ +-------+---+---+ +---+---+ | | | +---+---+ + +---------+ +---+-------+---+ | lactated ringers (LR) infusion | New Bag | 08/13/20 | | 100 | | | at 10-100 mL/hr, Intravenous, | | 18 10:59 | | mL/hr | | | CONTINUOUS, Starting [facility] 08/13/18 | | AM PST | | | | | at 1100, TKO., Pre-op | | | | | | + +---------+ +---+-------+---+ +---+---+ | | | +---+---+ + +-------+ +-------+---+ + | lidocaine (PF) 1% injection | Given | 08/13/20 | 2 mLs | | Surgical | | PRN, Starting [facility] 08/13/18 at | | 18 12:13 | | | Site | | 1213, Intra-op | | PM PST | | | | + +-------+ +-------+---+ + +---+---+ | | | +---+---+ + +-------+ +------+---+ + | lidocaine (PF) 2% injection | Given | 08/13/20 | 1 mL | | Surgical | | PRN, Starting [facility] 08/13/18 at | | 18 11:56 | [...] 12:31 | | | | | Starting [facility] 08/13/18 at 1231, | | PM PST | | | | | Intra-op | | | | | | + +-------+ +--------+---+ + + +---+ | | | + +---+ | ondansetron (ZOFRAN) injection | | | 4 mg 4 mg, Intravenous, ONCE | | | PRN, Nausea, Starting [facility] 08/13/18 | | | at 1222, For 1 dose, | | | Recovery/Phase I | | + +---+ | | | + +---+ | phenylephrine (HADLEY-SYNEPHRINE) | | | 10 % ophthalmic solution 1 drop | | | 1 drop, Left Eye, EVERY 5 MIN | | | PRN, Other, prep eye for | | | procedure, Starting [facility] 08/13/18 | | | at 1034, For [...] | | | First dose on [facility] 08/13/18 at | | | | | [...] | | | | | PRN, Starting [facility] 08/13/18 at | | PM PST | [...]
--- OUTSIDE RECORDS SUMMARY | ~2019-08-21 | XMS | Encounter Summary ---
Demographics + + + | Address | [address] | | | [place] [address] | + + + | Home Phone [...] + | Author | [facility] | | | and Ankitana | + + + | Organization | [facility] | | | and Ankitana [...] Team Providers + +------+ + | Care Automatic Maintainer Name | Role | Phone | + [...] | | | CENTER [address] | [place], [place] | | | | | [address] | [address] | | | | | [place] | | | | | | [address] | | | | | | [phone] | | | +--------+ + + + [...] | | | | | | [place] [address] | | | | | | [phone] | | | | | | | | +--------+---------+ + + + | 10/28/ | Office | Cardiology | Carol, | | | 2019 | Visit | | SALVATORE Moreno [address] | | | | | | [place], | | | | | | [place] [address] | | | | | | [phone] | | | | | | | | +--------+---------+ + + + documented as of this encounter Visit Diagnoses Not on filedocumented in this encounter"
--- OUTSIDE RECORDS SUMMARY | ~2019-08-21 | XMS | Encounter Summary ---
Demographics + + + | Address | [address] | | | [place] [address] | + + + | Home Phone [...] Author | [facility] [place] [facility] | | | and Ankitana | + + + | Organization | [facility] | | | and Ankitana [...] Team Providers + +------+ + | Care Principal Systems Architect Name | Role | Phone | + +------+ + | Yolanda Lee | PCP | | + +------+ + Encounter Details +--------+ + + + + | Date | Type | Department | Care Team | Description | +--------+ + + + + | 08/13/ | Anesthesia | [facility] | Ximena Cohen | | | 2018 | Event | MED CTR OR INTRA OP | MD Ashutosh [address] | | | | | [address] | [address] [place], [place] | | | | | [place], [place] | [address] | | | | | [address] | [phone] | | | | | [phone] | | | +--------+ + + + + Anesthesia Record + + + + + | Procedure Name | Responsible | Anesthesia Start | Anesthesia Stop Time | | | Anesthesiologist | Time | | + + + + + | LEFT EXTRACTION | Ximena Cohen, | 08/13/18 1144 | 08/13/18 1250 | | CATARACT WITH LENS | MD | | | | IMPLANT (Left Eye) | | | | + + + + + +----+---+ + + | Da | T | Event | Comment | | te | i | | | | | m | | | | | e | | | +----+---+ + + | 11 | 1 | An Checkout | Pre-use anesthesia machine/equipment checkout. | | /0 | 1 | | | | 8/ | 4 | | | | 20 | 3 | | | | 18 | | | | +----+---+ + + | | 1 | An Start | Room ready, anesthesia equipment checked, essential drugs & | | | 1 | | equipment available. Patient Identity checked, anesthesia plan | | | 4 | | explained and consent obtained. Patient transported to OR, | | | 4 | | Monitors applied. Reassessment prior to anesthesia | | | | | induction/procedure. | +----+---+ + + | | 1 | | | | | 1 | | | | | 4 | | | | | 5 | | | +----+---+ + + | | 1 | An Start | | | | 1 | Data | | | | 4 | | | | | 5 | | | +----+---+ + + | | 1 | an lola now | | | | 1 | | | | | 4 | | | | | 7 | | | +----+---+ + + | | 1 | AN | Per surgeon request | | | 1 | Antibiotic | | | | 4 | declined | | | | 8 | | | +----+---+ + + | | 1 | Preoxygenat | Oxygen administered, patient sedated, ventilating spontaneously. | | | 1 | ed | | | | 5 | | | | | 5 | | | +----+---+ + + | | 1 | An | | | | 1 | Induction | | | | 5 | | | | | 7 | | | +----+---+ + + | | 1 | An | Smooth IV induction, easy mask airway. LMA placed and well | | | 1 | Intubation | seated. Breathing Circuit attached to LMA. BSEB/ETCO2 | | | 5 | | (auscultation and capnography) and placement confirmed. | | | 8 | | | +----+---+ + + | | 1 | Pre-Procedu | | | | 2 | ral Timeout | | | | 0 | Completed | | | | 7 | | | +----+---+ + + | | 1 | First | | | | 2 | Inc/Proc St | | | | 1 | | | | | 1 | | | +----+---+ + + | | 1 | an lola now | PACU | | | 2 | | | | | 4 | | | | | 5 | | | +----+---+ + + | | 1 | an stop | | | | 2 | data | | | | 4 | | | | | 5 | | | +----+---+ + + | | 1 | An Stop | Patient handed off to recovery nurse. | | | 5 | | | | | 0 | | | +----+---+ + + +------+ | Meds | +------+ + + + | Name | Total | + + + | propofol | 110 mg | + + + | fentaNYL injection (2 mL) | 100 mcg | + + + | ondansetron | 4 mg | + + + | dexamethasone | 4 mg | + + + | lactated ringers (LR) infusion | 1,000 mL | + + + + + | Name | + + [...] leg; | 02/22/15 0000 by | 09/10/18 155 by | | | abscess (healthing closed, 50 | Ashely Rodgers RN | Yecenia Domingo RN | | | cent size); 09/10/18; 1551 | | | +--------+ + + + | Read | 06/11/18; 1524; chest; | 06/11/18 1524 by Tojesús | 09/10/18 1551 by | | only [...] +--------+ + + + | Periph | 08/13/18; 1059; Left; Posterior | 08/13/18 1059 by | 08/13/18 1320 by | | eral | (dorsal); Forearm; | LINDSAY LOWRY | Fede Buenrostro RN | | IV | xxop-iyj-xkesah catheter system; | | | | | 20 gauge, 1 1/4 in length; | | | | | intradermal injection, tolerated | | | | | well; no longer indicated; short | | | | | term use; 08/13/18; 1320 | | | +--------+ + + + | Airway | Placement Date: 08/13/18; | 08/13/18 1158 by | 08/13/18 1255 by | | | Placement Time: 1158 (created via | Ximena Cohen, | Cindy Jose RN | | | procedure documentation); Mask | MD | | | | Ventilation: EZ; Attempts: 1; | | | | | Airway Type: laryngeal mask; | | | | | Size: 3; Trauma: none; Placement | | | | | Check: exhaled CO2 detection | | | | | device, bilateral chest rise, | | | | | breath sounds equal bilaterally; | | | | | Removal: per protocol, removed by | | | | | ELÍAS; Removal Date: 08/13/18; | | | | | Removal Time: 1255; Additional | | | | | Comments: Smooth IV induction. | | | | | LMA placed and well seated. | | | | | Secured in place. Breathing | | | | | Circuit attached to LMA. | | | | | BSEB/ETCO2 (auscultation and | | | | | capnography) and placement | | | | | confirmed. | | | +--------+ + + + [...] | | | | | [place] [address] | | | | | | [phone] | | | | | | | | +--------+---------+ + + + | 10/28/ | Office | Cardiology | Carol, | | | 2020 | Visit | | SALVATORE Moreno [address] | | | | | | [address], | | | | | | [place] [address] | | | | | | [phone] | | | | | | | | +--------+---------+ + + + documented as of this encounter Procedures + +--------+ + + + | Procedure Name | Priori | Date/Time | Associated Diagnosis | Comments | | | ty | | | | + +--------+ + + + | ANE AIRWAY NOTE | Routin | 08/13/2018 | | Results for this | | | e | 12:06 PM | | procedure are in the | | | | PST | | results section. | + +--------+ + + + documented in this encounter Results Anesthesia Airway Note (08/13/2018 12:06 PM PST) + + + | Narrative | Performed At | + + + | Ximena Cohen MD 08/13/2018 12:07 Anesthesia Airway | | | Placement 08/13/2018 11:58 Preprocedure check: patient identified, | | | oxygen, airway assessed, patient reassessment prior to induction, | | | airway equipment checked and suction Mask ventilation: easy | | | Attempts: 1 Airway type: laryngeal mask Size: 3 Cuffed: cuffed | | | Route, reference point: center of mouth Tube secured with: adhesive | | | tape Trauma: none Tube placement verification: carbon dioxide | | | detection, equal bilateral breath sounds and bilateral chest rise | | | Performing provider: XIMENA COHEN Comments: Smooth IV | | | induction. LMA placed and well seated. Secured in place. Breathing | | | Circuit attached to LMA. BSEB/ETCO2 (auscultation and | | | capnography) and placement confirmed. Electronically Signed by: | | | Ximena Cohen MD | | | ESig date/time: 08/13/2018 12:07 | | + + + + + | Procedure Note | + + | Ximena Cohen MD - 08/13/2018 12:06 PM PST Anesthesia Airway | | Qorlkxegd60/8/2018 11:58Preprocedure check: patient identified, oxygen, airway assessed, | | patient reassessment prior to induction, airway equipment checked and suctionMask | | ventilation: easyAttempts: 1Airway type: laryngeal maskSize: 3Cuffed: cuffedRoute, | | reference point: center of mouthTube secured with: adhesive tapeTrauma: noneTube | | placement verification: carbon dioxide detection, equal bilateral breath sounds and | | bilateral chest risePerforming provider: XIMENA COHEN PComments: Smooth IV | | induction.LMA placed and well seated. Secured in place.Breathing Circuit attached to | | LMA. BSEB/ETCO2 (auscultation and capnography) and placement confirmed.Electronically | | Signed by: Ximena Cohen MD ESig date/time: 08/13/2018 | | 12:07 | |Trauma: none | |Tube placement verification: carbon dioxide detection, equal bilateral breath sounds and bi lateral chest rise | |Performing provider: XIMENA COHEN | | | |Comments: Smooth IV induction. | |LMA placed and well seated. Secured in place. | |Breathing Circuit attached to LMA. | |BSEB/ETCO2 (auscultation and capnography) and placement confirmed. | | | |Electronically Signed by: Ximena Cohen MD ESig date/time : 08/13/2018 12:07 | | | + + documented in this encounter Visit Diagnoses Not on filedocumented in this encounter Administered Medications + +--------+ +------+------+------+ | Medication Order | MAR | Action | Dose | Rate | Site | | | Action | Date | | | | + +--------+ +------+------+------+ | dexamethasone (DECADRON) 10 | Given | 08/13/20 | 4 mg | | | | mg/mL injection Intravenous, | | 18 11:48 | | | | | PRN, Starting [facility] 08/13/18 at | | AM PST | | | | | 1148, Anesthesia Intra-op | | | | | | + +--------+ +------+------+------+ +---+---+ | | | +---+---+ + +-------+ +--------+---+---+ | fentaNYL (PF) injection | Given | 08/13/20 | 50 mcg | | | | Intravenous, PRN, Pain, Starting | | 18 11:55 | | | | | [facility] 08/13/18 at 1155, Anesthesia | | AM PST | | | | | Intra-op | | | | | | + +-------+ +--------+---+---+ +-------+ +--------+---+---+ | Given | 08/13/20 | 50 mcg | | | | | 18 11:50 | | | | | | AM PST | | | | +-------+ +--------+---+---+ +---+---+ | | | +---+---+ + +-------+ +------+---+---+ | ondansetron (ZOFRAN) injection | Given | 08/13/20 | 4 mg | | | | Intravenous, PRN, Nausea, | | 18 11:48 | | | | | Vomiting, Starting [facility] 08/13/18 at | | AM PST | | | | | 1148, Anesthesia Intra-op | | | | | | + +-------+ +------+---+---+ +---+---+ | | | +---+---+ + +-------+ +--------+---+---+ | propofol (DIPRIVAN) injection | Given | 08/13/20 | 110 mg | | | | Intravenous, PRN, Starting [facility] | | 18 11:57 | | | | | 08/13/18 at 1150, Anesthesia | | AM PST | | | | | Intra-op | | | | | | + +-------+ +--------+---+---+ +---+---+ | | | +---+---+ documented in this encounter"
--- OUTSIDE RECORDS SUMMARY | ~2019-08-21 | XMS | Encounter Summary ---
Demographics + + + | Address | [address] | | | [place] [address] | + + + | Home Phone | | + + + | Preferred Language | Unknown | + + + | Marital Status | | + + + | Scientology Affiliation | 1041 | + + + | Race | Unknown | + + + | Ethnic Group | Unknown | + + + Author + + + | Author | [facility] | | | and Ankitana | + + + | Organization | [facility] | | | and Ankitana | [...] Team Providers + +------+ + | Care Customer Relations Advisor Name | Role | Phone | + +------+ + | Kiran Oneill DO | PCP | | + +------+ + Encounter Details +--------+ + + + + | Date | Type | Department | Care Team | Description | +--------+ + + + + | 12/26/ | Abstract | [facility] | Provider, | Cardiac arrest with | | 2018 | | CARDIOLOGY [address] | [address] | ventricular | | | | [place], | [address] | fibrillation (HCC) | | | | [place] [address] | [place] [address] | | | | | [phone] | | | +--------+ + + + [...] | | | | | | [place] [address] | | | | | | [phone] | | | | | | | | +--------+---------+ + + + | 10/28/ | Office | Cardiology | Carol, | | | 2019 | Visit | | SALVATORE Mroeno [address] | | | | | | [place], | | | | | | [place] [address] | | | | | | [phone] | | | | | | | | +--------+---------+ + + + documented as of this encounter Visit Diagnoses + + | Diagnosis | + + | Cardiac arrest with ventricular fibrillation (HCC) | + + documented in this encounter"
--- OUTSIDE RECORDS SUMMARY | ~2019-08-21 | XMS | Encounter Summary ---
Demographics + + + | Address | [address] | | | [place] [address] [...] + | Author | [facility] | | | and Ankitana | + + + | Organization | [facility] | | | and [...] Team Providers + +------+ + | Care Healthcare Account Manager Name | Role | Phone | [...] | | | | | [place] | [address] | | | | | [place] | | | | | | [address] | | | | | | [phone] | | | +--------+ + + + [...] | | | | | | [place] [address] | | | | | | [phone] | | | | | | | | +--------+---------+ + + + | 10/28/ | Office | Cardiology | Carol, | | | 2019 | Visit | | SALVATORE Moreno [address] | | | | | | [place], | | | | | | [place] [address] | | | | | | [phone] | | | | | | | | +--------+---------+ + + + documented as of this encounter Visit Diagnoses Not on filedocumented in this encounter"
--- OUTSIDE RECORDS SUMMARY | ~2019-08-21 | XMS | Encounter Summary ---
Demographics + + + | Address | [address] | | | [place] [address] | + + + | Home Phone [...] | Author | [facility] | | | and Ankitana | + + + | Organization | [facility] | | | and Ankitana [...] Team Providers + +------+ + | Care Employment Trainer Name | Role | Phone | + +------+ + | Yolanda Lee | PCP | | + +------+ + Encounter Details +--------+ + + + + | Date | Type | Department | Care Team | Description | +--------+ + + + + | 03/04/ | Hospital | [facility] | Jesse Siddiqi MD | Cellulitis and | | 2015 | Encounter | [facility] | [address], | abscess of hand, | | | | CARDIAC MEDICAL [address] | [address] floor [place], | except fingers and | | | | [address] [place], | [place] [address] | thumb; Bacteremia | | | | [place] [address] | [phone] | due to Streptococcus | | | | [phone] | | / Sepsis | +--------+ + [...] | | | | | | [place] [address] | | | | | | [phone] | | | | | | | | +--------+---------+ + + + | 10/28/ | Office | Cardiology | Carol, | | | 2019 | Visit | | SALVATORE Moreno [address] | | | | | | [place], | | | | | | [place] [address] | | | | | | [phone] | | | | | | | [...]
--- OUTSIDE RECORDS SUMMARY | ~2019-08-21 | XMS | Encounter Summary ---
Demographics + + + | Address | [address] | | | [place] [address] | + + + | Home Phone | | + + + | Preferred Language | Unknown | + + + | Marital Status | | + + + | Mormon Affiliation | 1041 | + + + | Race | Unknown | + + + | Ethnic Group | Unknown | + + + Author + + + | Author | [facility] | | | and Ankitana | + + + | Organization | [facility] [...] Team Providers + +------+ + | Care Molder Wax Ball Name | Role | Phone | + [...] | | | CENTER [address] | [place], [place] | | | | | [place] | [address] | | | | | [place] | | | | | | [address] | | | | | | [phone] | | | +--------+ + + + [...] | | | | | [place] [address] | | | | | | [phone] | | | | | | | | +--------+---------+ + + + | 10/28/ | Office | Cardiology | Carol, | | | 2019 | Visit | | SALVATORE Moreno [address] | | | | | | [place], | | | | | | [place] [address] | | | | | | [phone] | | | | | | | | +--------+---------+ + + + documented as of this encounter Visit Diagnoses Not on filedocumented in this encounter"
--- OUTSIDE RECORDS SUMMARY | ~2019-08-21 | XMS | Encounter Summary ---
Demographics + + + | Address | [address] | | | [place] [address] | + + + | Home Phone | | + + + | Preferred Language | Unknown | + + + | Marital Status | | + + + | Mosque Affiliation | 1041 | + + + | Race | Unknown | + + + | Ethnic Group | Unknown | + + + Author + + + | Author | [facility] | | | and Ankitana | + + + | Organization | [facility] | | | and [...] Team Providers + +------+ + | Care Laborer General Name | Role | Phone | + [...] [address] | | | | | [address] | [facility] | | | | | [facility] | [place] [address] | | | | | [place] | [phone] | | | | | [address] | | | | | | [phone] | | | +--------+ + + + [...] | | | | | | [place] [address] | | | | | | [phone] | | | | | | | | +--------+---------+ + + + | 10/28/ | Office | Cardiology | Carol, | | | 2019 | Visit | | SALVATORE Moreno [address] | | | | | | [place], | | | | | | [place] [address] | | | | | | [phone] | | | | | | | | +--------+---------+ + + + documented as of this encounter Visit Diagnoses Not on filedocumented in this encounter"
--- OUTSIDE RECORDS SUMMARY | ~2019-08-21 | XMS | Encounter Summary ---
Demographics + + + | Address | [address] | | | [place] [address] | + + + | Home Phone | | + + + | Preferred Language | Unknown | + + + | Marital Status | | + + + | Sabianist Affiliation | 1041 | + + + | Race | Unknown | + + + | Ethnic Group | Unknown | + + + Author + + + | Author | [facility] | | | and Ankitana | + + + | Organization | [facility] [...] Team Providers + +------+ + | Care Education Assistant Name | Role | Phone | + +------+ + | Yolanda Lee | PCP | | + +------+ + Reason for Visit Auth/Cert +--------+--------+ + + + + | [...] | | | | | ([facility]) | | | | | [...] + + + + | 06/11/ | Anesthesia | [facility] | Sharad Richard MD | | | 2018 | Event | [facility] | [address] | | | | | OP [address] | [place], [place] | | | | | [place], [place] | [phone] | | | | | [address] | | | | | | [phone] | Aba Sampson T, | | | | | | MD [address] | | | | | | [place], [place] | | | | | | [phone] | | | | | | | | +--------+ + + + + Anesthesia Record + + + + + | Procedure Name | Responsible | Anesthesia Start | Anesthesia Stop Time | | | Anesthesiologist | Time | | + + + + + | CORONARY ARTERY | Sharad Richard MD | 06/11/18 0934 | 06/11/18 1644 | | BYPASS GRAFT X3 EVH | | | | | JU (N/A Chest) | | | | + + + + + +----+---+ + + | Da | T | Event | Comment | | te | i | | | | | m | | | | | e | | | +----+---+ + + | 09 | 0 | | | | /0 | 8 | | | | 6/ | 2 | | | | 20 | 1 | | | | 18 | | | | +----+---+ + + | | 0 | An Checkout | Pre-use anesthesia machine/equipment checkout. | | | 9 | | | | | 0 | | | | | 6 | | | +----+---+ + + | | 0 | An Start | Reassessment prior to anesthesia induction/procedure. | | | 9 | | | | | 3 | | | | | 4 | | | +----+---+ + + | | 0 | Preoxygenat | | | | 9 | ed | | | | 3 | | | | | 6 | | | +----+---+ + + | | 0 | Art Line | | | | 9 | Start | | | | 5 | | | | | 0 | | | +----+---+ + + | | 0 | Art Line | | | | 9 | Stop | | | | 5 | | | | | 7 | | | +----+---+ + + | | 1 | An | | | | 0 | Induction | | | | 0 | | | | | 7 | | | +----+---+ + + | | 1 | an lola now | | | | 0 | | | | | 0 | | | | | 8 | | | +----+---+ + + | | 1 | An | | | | 0 | Intubation | | | | 0 | | | | | 8 | | | +----+---+ + + | | 1 | CVC Start | | | | 0 | | | | | 1 | | | | | 5 | | | +----+---+ + + | | 1 | CVC Stop | | | | 0 | | | | | 3 | | | | | 2 | | | +----+---+ + + | | 1 | CHIQUITA Probe | | | | 0 | Placement | | | | 3 | | | | | 4 | | | +----+---+ + + | | 1 | Autologous | | | | 0 | Blood Unit | | | | 5 | Removal | | | | 6 | | | +----+---+ + + | | 1 | Antibiotic | | | | 1 | Given | | | | 0 | | | | | 0 | | | +----+---+ + + | | 1 | Pre-Procedu | | | | 1 | ral Timeout | | | | 0 | Completed | | | | 3 | | | +----+---+ + + | | 1 | First | | | | 1 | Inc/Proc St | | | | 0 | | | | | 4 | | | +----+---+ + + | | 1 | Autologous | | | | 1 | Blood Unit | | | | 1 | Removal | | | | 1 | | | +----+---+ + + | | 1 | Insert | | | | 2 | Aortic | | | | 3 | Cannula | | | | 4 | | | +----+---+ + + | | 1 | Heart Lift | | | | 2 | | | | | 3 | | | | | 6 | | | +----+---+ + + | | 1 | Insert | | | | 2 | Venous | | | | 3 | Cannula | | | | 8 | | | +----+---+ + + | | 1 | Insert | | | | 2 | Coronary | | | | 4 | Sinus | | | | 1 | Catheter | | +----+---+ + + | | 1 | An CV | | | | 2 | Bypass init | | | | 5 | | | | | 3 | | | +----+---+ + + | | 1 | An Clamp On | | | | 2 | | | | | 5 | | | | | 5 | | | +----+---+ + + | | 1 | Quick Note | CHIQUITA probe placed by Dr. Bradshaw. Diagnostic exam performed by | | | 3 | | Dr. Bradshaw (Pre-CPB), Dr. Richard (Post-CPB). Exam interpreted | | | 2 | | by Dr. Richard. All pertinent intraoperative findings discussed | | | 2 | | with Dr. Webster. A comprehensive intraoperative CHIQUITA was | | | | | performed for CABG using 2D, Color Flow Doppler, Pulsed Wave | | | | | Doppler, and Continuous Wave Doppler plus 3D rendering without | | | | | postprocessing. AUC SCA 2b (CABG surgeries.) Pre-procedure | | | | | Summary Dx: 1. Moderately reduced LV systolic function. Visually | | | | | estimated LVEF 35%. Normal LV size and shape. Normal wall | | | | | thickness. 2. Normal RV size with normal function. 3. No obvious | | | | | atrial enlargement. KEZIA normal size without SEC, masses, or | | | | | thrombi. IAS intact, no PFO detected. 4. Mitral valve normal | | | | | structure and function. Trace MR with central jet. Moderate MAC. | | | | | 5. Trileaflet aortic valve with normal structure and function. No | | | | | significant aortic stenosis. No AI. 6. Tricuspid valve normal | | | | | structure and function. Trace TR. 7. Pulmonic valve normal Trace | | | | | MO. 8. Visible portions of ascending aorta and arch normal. Grade | | | | | 2 atherosclerotic disease of descending aorta. 9. Pulmonary | | | | | artery normal 10. Normal pericardium. No pericardial fluid. No | | | | | pleural fluid. Post-procedure Summary Dx: 1. S/P CABG x 3 | | | | | (GOODMAN-LAD, SVG-OM, SVG-PDA) 2. LV function is improved to | | | | | borderline with LVEF=50%, previously severely hypokinetic | | | | | inferolateral segments are improved. 3. No change in right | | | | | ventricular function compared to preop. 4. No change in valves | | | | | compared to preop. 5. No change in visible portions of aorta | | | | | after decannulation. 6. LV and RV function unchanged after | | | | | sternal closure. No apparent pericardial fluid after sternal | | | | | closure. No pleural fluid visible after sternal closure. | | | | | Procedure: 1. CABG x 3 (GOODMAN-LAD, SVG-OM, SVG-PDA). Left | | | | | Ventricle: Moderately depressed LV fxn with visually estimated | | | | | LVEF 35%. Normal LV size and shape. Normal wall thickness. LV | | | | | with global mild HK. Mid-basal region of Inferior/septal, | | | | | Inferior and lateral castillo with severe HK. Diastolic function | | | | | consistent with impaired relaxation. Note lateral e' not | | | | | accurate d/t mod MAC. POSTOP: LV function is improved to | | | | | borderline with LVEF=50%, previously severely hypokinetic | | | | | inferolateral segments are improved. Right Ventricle: Normal RV | | | | | size. Normal wall thickness. Normal function. Insufficient TR to | | | | | estimate RV pressures. TAPSE measured with CMQ technology was | | | | | 21.9mm. FAC= 45%. POSTOP: No change compared to preop. Atria: | | | | | No obvious atrial enlargement. KEZIA normal size without SEC, | | | | | masses, or thrombi. KEZIA inflow and outflow velocities WNL. IAS | | | | | intact, no PFO detected. IAS in neutral position without | | | | | significant deviation or abnormal motion POSTOP: No change | | | | | compared to preop. Mitral Valve: Trace mitral regurgitation | | | | | with central jet. No mitral stenosis Leaflets of normal thickness | | | | | with normal opening. No leaflet prolapse. Moderate MAC No ALEKSANDER. | | | | | No LVOT turbulence. POSTOP: No change compared to preop. Aortic | | | | | Valve: Trileaflet aortic valve. Normal leaflet motion. Slightly | | | | | thickened leaflets. No aortic stenosis. No aortic insufficiency. | | | | | POSTOP: No change compared to preop. Tricuspid Valve: Normal | | | | | tricuspid leaflet thickness and opening. Trace tricuspid | | | | | regurgitation. Hepatic vein forward flow S<D. POSTOP: No change | | | | | compared to preop. Pulmonic Valve: Good visualization of | | | | | pulmonic valve. Trace pulmonic regurgitation. No pulmonic | | | | | stenosis. POSTOP: No changecompared to preop. Great Vessels: | | | | | Measurements LVOT 2.0 cm Aortic Annulus 2.0 cm Sinuses of | | | | | Valsalva 2.95 cm STJ 2.4 cm Proximal ASCENDING Aorta 2.8 cm | | | | | Normally-sized aortic root. Visible portions of ascending aorta | | | | | normal. Sinotubular junction calcified. Descending aorta of | | | | | normal diameter. Atherosclerosis in descending aorta is Grade II | | | | | - thickening 1-4 mm without protruding.. Pulmonary artery is | | | | | normal. POSTOP: No change in visible portions of aorta compared | | | | | to preop after decannulation. Other: Normal pericardium,no | | | | | pericardial effusion. No pleural effusion. POSTOP: No | | | | | pericardial or pleural effusion after sternal closure. Comments: | | | | | 1. Images acquired during positive pressureventilation under | | | | | general anesthesia. 2. Preop rhythm: SR. Postop rhythm SR. 3. | | | | | Vasoactive medications during preop image acquistion: | | | | | Phenylephrine infusion titrated to maintain normal BP. Vasoactive | | | | | medications during postop image acquistion: None. All pre and | | | | | post-CPB CHIQUITA findings discussed with Dr. Webster. | +----+---+ + + | | 1 | Autologous | | | | 3 | Blood Unit | | | | 3 | Transfused | | | | 0 | | | +----+---+ + + | | 1 | An Clamp | | | | 4 | Off | | | | 1 | | | | | 2 | | | +----+---+ + + | | 1 | An CV | | | | 4 | Bypass | | | | 2 | cease | | | | 4 | | | +----+---+ + + | | 1 | Autologous | | | | 4 | Blood Unit | | | | 4 | Transfused | | | | 0 | | | +----+---+ + + | | 1 | An Stop | Patient handed off to recovery nurse. | | | 4 | | | | | 4 | | | +----+---+ + + +------+ | Meds | +------+ + + + | Name | Total | + + + | midazolam | 5 mg | + + + | SUFentanil | 100 mcg | + + + | lidocaine 2% | 100 mg | + + + | ketamine | 60 mg | + + + | propofol (DIPRIVAN) injection | 120 mg | | (bolus) (20 mL) | | + + + | rocuronium | 140 mg | + + + | phenylephrine | 500 mcg | + + + | phenylephrine | 955 mcg | + + + | esmolol (BREVIBLOC) injection 10 | 50 mg | | mg/mL | | + + + | heparin | 26,000 Units | + + + | protamine | 250 mg | + + + | calcium chloride | 2 g | + + + | ceFAZolin | 2 g | + + + | norepinephrine | 40 mcg | + + + | norepinephrine | 315 mcg | + + + | dexmedetomidine (Infusion) | 199.12 mcg | + + + | propofol (Infusion) | 832.51 mg | + + + | insulin regular | 4 Units | + + + | aminocaproic acid (AMICAR) | 10 g | | injection | | + + + | HYDROmorphone | 2 mg | + + + | PLASMALYTE-148/NORMOSOL-R IV | 1,500 mL | | infusion | | + + + | balanced electrolytes in water | 1,500 mL | | (PLASMALYTE-148/NORMOSOL-R) | | | infusion | | + + + | albumin 5% | 500 mL | + + + + + | Name | + + | N2O Flow Rate (L/Min) | + + | O2 Flow Rate (L/Min) | + + | Insp O2 | + + | Exp N2O | + + | Exp SEV | + + | Exp ISO | + + | Air Flow Rate (L/Min) | + + + +--------+ | Name | Total | + +--------+ | PRBC-INTRAOP | 307 mL | + +--------+ +--------+ + + + | Type | [...] +--------+ + + + | Periph | 06/10/18; 1446; Right; Forearm; | 06/10/18 1446 by | 06/12/18 1200 by | | eral | [id number] catheter system; | Monica Allison RN | Stephanie Daily RN | | IV | 22 gauge, 1 in length; | | | | | intradermal injection, tolerated | | | | | well; 06/12/18; 1200 | | | +--------+ + + + | Periph | 06/11/18; 0850; Right; Hand; 18 | 06/11/18 0850 by | 06/12/18 1240 by | | erajd | gauge, 1 1/4 in length; 1; left | Steph Knowles, | Yomi Luna RN | | IV | wrist by [email or web address]; intradermal | RN | | | | injection, tolerated well; iv | | | | | inserted by [email or web address]; 06/12/18; 1240 | | | +--------+ + + + | Arteri | 06/11/18; 0957 (created via | 06/11/18 0957 by | 06/12/18 1139 by | | al | procedure documentation); | Ashly Bradshaw MD | Yomi Luna RN | | Line | Chlorhexidine/Isopropyl Alcohol; | | | | | under GA; Left; femoral artery; | | | | | (5 fr); continuous blood pressure | | | | | monitoring, frequent blood gas | | | | | measurement; intradermal | | | | | injection; ultrasound guided; | | | | | secured with sutures, other (see | | | | | comments); no longer indicated, | | | | | catheter intact; Unsuccessful lt | | | | | radial art line as unable to pass | | | | | cath over wire in vessel. Note | | | | | vessel was highly calcified. | | | | | Prev cath in rt rad so moved to | | | | | lt fem art for line placement. 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 | | | | Ventilation: EZ; Airway Grade: 1; | | | | | Successful Technique: video | | | | | scope; Laryngoscope Blade Size: | | | | | 3; Attempts: 1; Airway Type: | | | | | endotracheal; Size: 7.5; Airway | | | | | Tube Secured At: 23; Trauma: | | | | | none; Other Equipment: stylette; | | | | | Placement Check: exhaled CO2 | | | | | detection device, video | | | | | laryngoscope, bilateral chest | | | | | rise, breath sounds equal | | | | | bilaterally; Removal: removed by | | | | | RT; Removal Date: 06/11/18; | | | | | Removal Time: 2342 | | | +--------+ + + + | Urethr | 06/11/18; 1030; indicated due to | 06/11/18 1030 by Tod | 06/12/18 1515 by | | al | specific surgical procedure; All | Melia Munoz RN | Kezia Pérez RN | | Cathet | elements; All elements; All | | | | er | elements; indwelling double lumen | | | | | catheter; 100% silicone; 16; | | | | | None; 1; 10; 10; 06/12/18; 1515 | | | +--------+ + + + | CVC | 06/11/18; 1030 (created via | 06/11/18 1030 by | 06/12/18 1209 by | | Quad | procedure documentation); 1; Yes; | Ashly Bradshaw MD | Yomi Luna RN | | Lumen | Chlorhexidine/Isopropyl Alcohol; | | | | | Yes; Yes; All; OR; [employer]inter Balloon; | | | | | Ashly Bradshaw MD; New | | | | | indication for central line | | | | | (e.g., hemodynamic monitoring, | | | | | fluid/medication administration, | | | | | etc.); internal jugular vein, | | | | | right; under GA; 16; 9 Fr; | | | | | lidocaine 1% SQ; ultrasound | | | | | guided; pressure transduced, | | | | | PVC's induced, other (see | | | | | comments); all ports aspirated | | | | | blood; 06/12/18; 1209 | | | +--------+ + + + | Chest | 06/11/18; 1522; 1; Left:; 19 Fr.; | 06/11/18 1522 by Tod | 06/13/18 1200 by | | Tube Y | 2; midline; 19 Fr.; 3; Right:; | Melia Munoz RN | Stephanie Daily RN | | 123 | 19 Fr.; 06/13/18; 1200 | | | +--------+ + + + [...] | | +--------+ + + + | Pacema | 06/11/18; 1525; epicardial; | 06/11/18 1525 by Tod | 06/13/18 1200 by | | ker | 06/13/18; 1200 | Melia Munoz RN | Stephanie Daily RN | +--------+ + + + documented in [...] | | | | | [place] [address] | | | | | | [phone] | | | | | | | | +--------+---------+ + + + | 10/28/ | Office | Cardiology | Carol, | | | 2019 | Visit | | SALVATORE Moreno [address] | | | | | [place], | | | | | | [place] [address] | | | | | | [phone] | | | | | | | [...] this | | NOTE | e | 11:49 AM | | procedure are in the | | | | PDT | | results section. | + +--------+ + + + | ANE ARTERIAL LINE | Routin | 06/11/2018 | | Results for this | | NOTE | e | 11:37 AM | | procedure are in the | | | | PDT | | results section. | + +--------+ + + + | ANE AIRWAY NOTE | Routin | 06/11/2018 | | Results for this | | | e | 11:11 AM | | procedure are in the | | | | PDT | | results section. 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 Performed by: ASHLY BRADSHAW Location | | | performed: [place] Electronically Signed by: Ashly Bradshaw MD | | | ESig date/time: 06/11/2018 11:49 | | + + + + ------+ | Procedure Note | + ------+ | Ashly Bradshaw MD - 06/11/2018 11:49 AM PDT Central Venous Line Placement06/11/2018 | | [...] this timePerson recording: | | inserterPerformed by: ASHLY BRADSHAWLocation performed: [place] Electronically Signed by: | | Ashly Bradshaw MD ESig date/time: 06/11/2018 11:49 | |Number of Lumens: [...] noted at this time | |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 Note vessel was highly calcified. Prev cath in | | | rt rad so moved to lt fem art for line placement. rfh | | + + + + -------+ | Procedure Note | + -------+ | Aslhy Bradshaw MD - 06/11/2018 11:37 AM PDT Arterial Line Placement06/11/2018 | | 9:57Indication: acid-base/laboratory analysis and continuous blood pressure | | monitoringPrep solution: chlorhexidine/isoproplyl alcoholPatient was: under GAPain | | prevention: 1% lidocaine infiltrationLaterality: leftArtery:femoralLDA Gauge Size: 5 | | fr.Localization technique: ultrasoundUltrasound image: stored in patient's | | chartSecurement: transparent dressing and suturesPerformed by: JITENDRA | | ASHLYComments: Unsuccessful lt radial art line as unable [...] transparent dressing and sutures | |Performed by: ASHLY BRADSHAW | |Comments: Unsuccessful lt radial art line as unable to pass cath over wire in vessel. Note vessel was highly calcified. Prev cath in rt rad so moved to lt fem art for line placement . rfh | + -------+ Anesthesia Airway Note (06/11/2018 11:11 AM PDT) + + + | Narrative | Performed At | + + + | Ashly Bradshaw MD 06/11/2018 11:12 Anesthesia Airway | [...] video laryngoscope | | | Performing provider: SYLVIA GARBER Assisted by: ASHLY BRADSHAW | | | Electronically Signed by: Ashly Bradshaw MD | | | ESig date/time: 06/11/2018 11:11 | | | | | + + + + + | Procedure Note | + + | Ashly Bradshaw MD - 06/11/2018 11:11 AM PDT Anesthesia Airway Placement06/11/2018 | | 10:08Preprocedure [...] detection and video | | laryngoscopePerforming provider: SYLVIA GARBER MAssisted by: JITENDRA, | | ASHLYElectronically Signed by: Ashly Bradshaw MD ESi | | date/time: 06/11/2018 11:11 | |Airway type: endotracheal | |Size: 7.5 | |Cuffed: cuffed | |Route, reference point: right side of mouth | |Tube depth: 23 cm | |Tube secured with: adhesive tape | |Trauma: none | |Tube placement verification: bilateral chest rise, equal bilateral breath sounds, carbon di oxide detection and video laryngoscope | |Performing provider: SYLVIA GARBER | |Assisted by: ASHLY BRADSHAW | | | | | |Electronically Signed by: Ashly Bradshaw MD ESig date/time: 11:11 | | | + + documented in this encounter Visit Diagnoses Not on filedocumented in this encounter Administered Medications + +---------+ +------+------+------+ | Medication Order | MAR | Action | Dose | Rate | Site | | | Action | Date | | | | + +---------+ +------+------+------+ | albumin 5% IVPB Intravenous, | New Bag | 06/11/20 | | | | | Administer over 1 Hours, | | 18 9:34 | | | | | CONTINUOUS PRN, Starting [facility] | | AM PDT | | | | | 06/11/18 at 0934, Anesthesia | | | | | | | Intra-op | | | | | | + +---------+ +------+------+------+ +---+---+ | | | +---+---+ + +-------+ +------+---+---+ | aminocaproic acid (AMICAR) | Given | 06/11/20 | 10 g | | | | injection PRN, Starting [facility]en | | 18 2:34 | | | | | 06/11/18 at 1434, Anesthesia | | PM PDT | | | | | Intra-op [...] +--------+ +---+---+ | | | +---+---+ + +---------+ +---+---+---+ | balanced electrolytes in water | New Bag | 06/11/20 | | | | | (PLASMALYTE-148/NORMOSOL-R) | | 18 2:44 | | | | | infusion CONTINUOUS PRN, | | PM PDT | | | | | Starting Maryc[facility]en 06/11/18 at 0934, | | | | | | | Anesthesia Intra-op | | | | | | + +---------+ +---+---+---+ +---------+ +---+---+---+ | New Bag | 06/11/20 | | | | | | 18 9:34 | | | | | | AM PDT | | | | +---------+ +---+---+---+ +---+---+ | | | +---+---+ + +-------+ +-----+---+---+ | calcium chloride injection | Given | 06/11/20 | 2 g | | | | Intravenous, PRN, Starting Marycarmen | | 18 2:51 | | | | | 06/11/18 at 1451, Anesthesia | | PM PDT | | | | | Intra-op | | | | | | + +-------+ +-----+---+---+ +---+---+ | | | +---+---+ + +-------+ +-----+---+---+ | ceFAZolin (ANCEF, KEFZOL) | Given | 06/11/20 | 2 g | | | | injection Intravenous, PRN, | | 18 11:00 | | | | | Starting Maryc[facility]en 06/11/18 at 1100, | | AM PDT | | | | | Anesthesia Intra-op | | | | | | + +-------+ +-----+---+---+ +---+---+ | | | +---+---+ + +---------+ + +-------+---+ | dexmedetomidine (PRECEDEX) 400 | New Bag | 06/11/20 | 0.6 | 9.8 | | | mcg in 100 mL NS infusion | | 18 11:40 | mcg/kg/h | mL/hr | | | Intravenous, CONTINUOUS PRN, | | AM PDT | r | | | | Starting [facility] 06/11/18 at 1140, | | | | | | | Anesthesia Intra-op | | | | | | + +---------+ + +-------+---+ +---+---+ | | | +---+---+ + +-------+ +-------+---+---+ | esmolol (BREVIBLOC) 10 mg/mL | Given | 06/11/20 | 50 mg | | | | injection Intravenous, PRN, | | 18 10:06 | | | | | Starting [facility] 06/11/18 at 1006, | | AM PDT | | | | | Anesthesia Intra-op | | | | | | + +-------+ +-------+---+---+ +---+---+ | | | +---+---+ + +-------+ +---------+---+---+ | heparin 1,000 units/mL | Given | 06/11/20 | 26,000 | | | | injection PRN, Starting Marycarmen | | 18 12:12 | Units | | | | 06/11/18 at 1212, Anesthesia | | PM PDT | | | | | Intra-op | | | | | | + +-------+ +---------+---+---+ +---+---+ | | | +---+---+ + +-------+ +------+---+---+ | HYDROmorphone (DILAUDID) 2 | Given | 06/11/20 | 2 mg | | | | mg/mL injection Intravenous, | | 18 2:20 | | | | | PRN, Pain, Starting Marycarmen 06/11/18 at | | PM PDT | | | | | 1420, Anesthesia Intra-op | | | | | | + +-------+ +------+---+---+ +---+---+ | | | +---+---+ + +-------+ +---------+---+---+ | insulin regular (humuLIN R, | Given | 06/11/20 | 4 Units | | | | novoLIN R) injection | | 18 1:38 | | | | | Intravenous, PRN, Starting Maryc[facility]en | | PM PDT | | | | | 06/11/18 at 1338, Anesthesia | | | | | | | Intra-op | | | | | | + +-------+ +---------+---+---+ +---+---+ | | | +---+---+ + +-------+ +-------+---+---+ | ketamine 100 mg/mL injection | Given | 06/11/20 | 60 mg | | | | Intravenous, PRN, Starting [facility]en | | 18 10:07 | | | | | 06/11/18 at 1007, Anesthesia | | AM PDT | | | | | Intra-op | | | | | | + +-------+ +-------+---+---+ +---+---+ | | | +---+---+ + +-------+ +--------+---+---+ | lidocaine (PF) 2% injection | Given | 06/11/20 | 100 mg | | | | Intravenous, PRN, Starting [facility]en | | 18 10:07 | | | | | 06/11/18 at 1007, Anesthesia | | AM PDT | | | | | Intra-op | | | | | | + +-------+ +--------+---+---+ +---+---+ | | | +---+---+ + +-------+ +------+---+---+ | midazolam (VERSED) 1 mg/mL | Given | 06/11/20 | 2 mg | | | | injection Intravenous, PRN, | | 18 9:44 | | | | | Anxiety, Starting [facility] 06/11/18 at | | AM PDT | | | | | 0936, Anesthesia Intra-op | | | | | | + +-------+ +------+---+---+ +-------+ +------+---+---+ | Given | 06/11/20 | 3 mg | | | | | 18 9:36 | | | | | | AM PDT | | | | +-------+ +------+---+---+ +---+---+ | | | +---+---+ + + + +---------+-------+---+ | norepinephrine (LEVOPHED) | Rate/Dos | 06/11/20 | 3 | 0.2 | | | injection Intravenous, | e Change | 18 11:24 | mcg/min | mL/hr | | | CONTINUOUS PRN, Starting [facility]en | | AM PDT | | | | | 06/11/18 at 1100, Anesthesia | | | | | | | Intra-op | | | | | | + + + +---------+-------+---+ +---------+ +---------+-------+---+ | New Bag | 06/11/20 | 2 | 0.1 | | | | 18 11:00 | mcg/min | mL/hr | | | | AM PDT | | | | +---------+ +---------+-------+---+ +---+---+ | | | +---+---+ + +-------+ +--------+---+---+ | norepinephrine (LEVOPHED) | Given | 06/11/20 | 16 mcg | | | | injection Intravenous, PRN, | | 18 12:51 | | | | | Starting [facility]en 06/11/18 at 1248, | | PM PDT | | | | | Anesthesia Intra-op | | | | | | + +-------+ +--------+---+---+ +-------+ +--------+---+---+ | Given | 06/11/20 | 16 mcg | | | | | 18 12:48 | | | | | | PM PDT | | | | +-------+ +--------+---+---+ | Given | 06/11/20 | 8 mcg | | | | | 18 12:41 | | | | | | PM PDT | | | | +-------+ +--------+---+---+ +---+---+ | | | +---+---+ + + + +---------+-------+---+ | phenylephrine (HADLEY-SYNEPHRINE) | Rate/Dos | 06/11/20 | 15 | 0.1 | | | 10 mg/mL injection Intravenous, | e Change | 18 11:08 | mcg/min | mL/hr | | | CONTINUOUS PRN, Starting Marycarmen | | AM PDT | | | | | 06/11/18 at 1042, Anesthesia | | | | | | | Intra-op | | | | | | + + + +---------+-------+---+ + + +---------+-------+---+ | Rate/Dose Change | 06/11/20 | 35 | 0.2 | | | | 18 11:04 | mcg/min | mL/hr | | | | AM PDT | | | | + + +---------+-------+---+ | Rate/Dose Change | 06/11/20 | 45 | 0.3 | | | | 18 10:57 | mcg/min | mL/hr | | | | AM PDT | | | | + + +---------+-------+---+ +---+---+ | | | +---+---+ + +-------+ +---------+---+---+ | phenylephrine (HADLEY-SYNEPHRINE) | Given | 06/11/20 | 100 mcg | | | | 10 mg/mL injection Intravenous, | | 18 2:25 | | | | | PRN, Starting Marycarmen 06/11/18 at 1057, | | PM PDT | | | | | Anesthesia Intra-op | | | | | | + +-------+ +---------+---+---+ +-------+ +---------+---+---+ | Given | 06/11/20 | 300 mcg | | | | | 18 11:04 | | | | | | AM PDT | | | | +-------+ +---------+---+---+ | Given | 06/11/20 | 100 mcg | | | | | 18 10:57 | | | | | | AM PDT | | | | +-------+ +---------+---+---+ +---+---+ | | | +---+---+ + +-------+ +-------+---+---+ | propofol (DIPRIVAN) injection | Given | 06/11/20 | 50 mg | | | | Intravenous, PRN, Starting Marycarmen | | 18 2:34 | | | | | 06/11/18 at 1007, Anesthesia | | PM PDT | | | | | Intra-op | | | | | | + +-------+ +-------+---+---+ +-------+ +-------+---+---+ | Given | 06/11/20 | 70 mg | | | | | 18 10:07 | | | | | | AM PDT | | | | +-------+ +-------+---+---+ +---+---+ | | | +---+---+ + + + + +-------+---+ | propofol infusion (DIPRIVAN) 10 | Rate/Dos | 06/11/20 | 50 | 19.7 | | | mg/mL infusion Intravenous, | e Change | 18 12:53 | mcg/kg/m | mL/hr | | | CONTINUOUS PRN, Starting Marycarmen | | PM PDT | in | | | | 06/11/18 at 1155, Anesthesia | | | | | | | Intra-op | | | | | | + + + + +-------+---+ +---------+ + +-------+---+ | New Bag | 06/11/20 | 20 | 7.9 | | | | 18 11:55 | mcg/kg/m | mL/hr | | | | AM PDT | in | | | +---------+ + +-------+---+ +---+---+ | | | +---+---+ + +-------+ +--------+---+---+ | protamine injection | Given | 06/11/20 | 250 mg | | | | Intravenous, PRN, Starting Marycarmen | | 18 2:28 | | | | | 06/11/18 at 1428, Anesthesia | | PM PDT | | | | | Intra-op | | | | | | + +-------+ +--------+---+---+ +---+---+ | | | +---+---+ + +---------+ +---+---+---+ | Red Blood Cells | New Bag | 06/11/20 | | | | | (PRBC-INTRAOP)-Transfuse | | 18 3:16 | | | | | | | PM PDT | | | | + +---------+ +---+---+---+ +---+---+ | | | +---+---+ + +-------+ +-------+---+---+ | rocuronium (ZEMURON) injection | Given | 06/11/20 | 40 mg | | | | Intravenous, PRN, Ventilator | | 18 12:38 | | | | | Dyssynchrony, Starting Marycarmen 06/11/18 | | PM PDT | | | | | at 1100, Anesthesia Intra-op | | | | | | + +-------+ +-------+---+---+ +-------+ +-------+---+---+ | Given | 06/11/20 | 30 mg | | | | | 18 11:00 | | | | | | AM PDT | | | | +-------+ +-------+---+---+ | Given | 06/11/20 | 70 mg | | | | | 18 10:07 | | | | | | AM PDT | | | | +-------+ +-------+---+---+ +---+---+ | | | +---+---+ + +-------+ +--------+---+---+ | SUFentanil (SUFENTA) injection | Given | 06/11/20 | 30 mcg | | | | Intravenous, PRN, Pain, Starting | | 18 12:52 | | | | | Marycarmen 06/11/18 at 1006, Anesthesia | | PM PDT | | | | | Intra-op | | | | | | + +-------+ +--------+---+---+ +-------+ +--------+---+---+ | Given | 06/11/20 | 20 mcg | | | | | 18 12:27 | | | | | | PM PDT | | | | +-------+ +--------+---+---+ | Given | 06/11/20 | 20 mcg | | | | | 18 12:10 | | | | | | PM [...]
--- OUTSIDE RECORDS SUMMARY | ~2019-08-21 | XMS | Encounter Summary ---
Demographics + + + | Address | [address] | | | [place] [address] | + + + | Home Phone | | + + + | Preferred Language | Unknown | + + + | Marital Status | | + + + | Orthodoxy Affiliation | 1041 | + + + | Race | Unknown | + + + | Ethnic Group | Unknown | + + + Author + + + | Author | [facility] | | | and Ankitana | + + + | Organization | [facility] [...] Team Providers + +------+ + | Care Local Tanker Truck Driver Name | Role | Phone | + [...] | apnea, | [address] | [place] | | | | | unspecified | [address] [place] | [place], | | | | | type | [place], [place] | [place] [address] | | | | | Procedures | [address] | Phone: | | | | | [place] POLYSOM | Phone: | [phone] | | | | | 6/>YRS SLEEP | [phone] | Fax: | | | | | 4/> ADDL | Fax: | [phone] | | | | | SAJAN ATTND | [phone] | | | | | | [place] POLYSOM | | | | | | [...] | | | | | apnea) | [address] | [place] | | | | | | [place], | [address] Phone: | | | | | | [place] | [phone] | | | | | | [address] | Fax: | | | | | | Phone: | [phone] | | | | | | [phone] | | | | | | | Fax: | | | | | | | [phone] | | +--------+ + + + + + Encounter Details +--------+---------+ + + + | Date | Type | Department | Care Team | Description | +--------+---------+ + + + | 12/01/ | Office | [facility] | Jessy Agarwal MD | Sleep apnea, | | 2018 | Visit | SLEEP DISORDER [address] | [address] | unspecified type | | | | [address] | [place] | (Primary Dx) | | | | [place] [address] | [address] | | | | | [phone] | | | +--------+---------+ + + + [...] + | Blood Pressure | 140/80 | 12/01/2018 1:15 PM | | | | | PST | | + + + + + | Pulse | 73 | 12/01/2018 1:15 PM | | | | | PST | | + + + + + | Temperature | - | - | | + + + + + | Respiratory Rate | 16 | 12/01/2018 1:15 PM | | | | | PST | | + + + + + | Oxygen Saturation | 96% | 12/01/2018 1:15 PM | | | | | PST | | + + + + + | Inhaled Oxygen | - | - | | | Concentration | | | | + + + + + | Weight | 81.6 kg (179 lb 14.3 | 12/01/2018 1:15 PM | | | | oz) | PST | | + + + + + | Height | 170.2 cm (5' 7") | 12/01/2018 1:15 PM | | | | | PST | | + + + + + | Body Mass Index | 28.18 | 12/01/2018 1:15 PM | | | | | [...] Instructions Patient Instructions Jessy Agarwal MD - 12/01/2018 1:30 PM PSTPlease: 1- Schedule your sleep study. An [...] for letting me take care of you. documented in this encounter Progress Notes Jessy Agarwal MD - 12/01/2018 1:30 PM PST ID/CC: We are asked to Morelia Pichardo [...] and wake time. They usually watch some [employer] s eries. She usually goes to bed [...] marijuana(Indica) to help with her sleep. ? [place] Sleepiness Scale: 2 out of 24 ( [...] HISTORY Past Medical History: Diagnosis Date Acute AR ([facility]) 2011 Anxiety Back pain Bipolar disorder (HCC) Community acquired pneumonia secondary to Haemophilus influenzae Coronary artery disease Depression Dyslipidemia Hepatitis C Heroin abuse ([facility]) Last use was 2011 Hip pain HTN (hypertension) Insomnia Ischemic cardiomyopathy Methamphetamine use ([facility]) 06/07/2018 She denies use and suggests that [...] Cor Angio; Surgeon: Shad Schuler MD; Location: [facility] CV LAB CARDIAC CATHERIZATION Right 06/09/2018 Procedure: CV LHC; Surgeon: Shad Schuler MD; Location: [facility] CV LAB CARDIAC CATHERIZATION Right 06/09/2018 Procedure: CV LV; Surgeon: Shad Schuler MD; Location: [facility] CV LAB CATARACT REMOVAL Left 08/13/2018 Procedure: LEFT EXTRACTION CATARACT WITH LENS IMPLANT; Surgeon: Seamus Richard MD; Loc ation: [facility] MAIN OR CATARACT REMOVAL Right 09/10/2018 Procedure: RIGHT EXTRACTION CATARACT WITH LENS IMPLANT; Surgeon: Seamsu Richard MD; Lo cation: [facility] MAIN OR CORONARY ANGIOPLASTY WITH STENT PLACEMENT 05/11/2012 Percutaneous transluminal coronary angioplasty and stenting of the left circumflex with th rombectomy of the left circumflex CORONARY ARTERY BYPASS GRAFT N/A 06/11/2018 Procedure: CORONARY ARTERY BYPASS GRAFT X3 EVH JU; Surgeon: Hemanth Webster MD; Loc ation: [facility] MAIN OR HYSTERECTOMY 1995 ALLERGIES No [...] problems. discussed diagno sis via polysomnography / kjh-hy-uvdfwd sleep testing. she has been a smoker [...] this chart may have been created with [employer] voice recognition software. Occasi onal wrong-word or sound-alike substitutions may have occurred due to the inherent meyers itations of voice recognition software. Please read the chart carefully and recognize, using context, where these substitutions have occurred. Pam Perez, Medical As sistant - 12/01/2018 1:30 PM PSTFormatting of this note might be different from the origina l. 12/01/18 1300 Ramirez Depression Inventory-II Depression Score 16 - Mild depression Insomnia Severity Index Insomnia Severity Index 22 [place] Sleepiness Scale 1. Sitting and reading 0 [...] 35.28 MH 43.02 PCS 21.95 MCS 45.69 documented in this enco unter Plan of Treatment +--------+---------+ + + + | Date | Type | Specialty | Care Team | Description | +--------+---------+ + + + | 09/01/ | Office | Gastroenterology | Aba Gonsalez | | | 2018 | Visit | | MD George [address] | | | | | | [place] | | | | | | [place] [address] | | | | | | [phone] | | | | | | | | +--------+---------+ + + + | 10/28/ | Office | Cardiology | Carol, | | | 2019 | Visit | | SALVATORE Moreno [address] | | | | | | [place], | | | | | | [place] [address] | | | | | | [phone] | | | | | | | | +--------+---------+ + + + + + +--------+ + + | Name | Type | Priori | Associated Diagnoses | Order Schedule | | | | ty | | | + + +--------+ + + | * [facility] - | Outpatient | Routin | Sleep apnea, | Ordered: 12/01/2018 | | AMB Referral | Referral | e | unspecified type | | + + +--------+ + + documented as of this encounter Visit Diagnoses + + | Diagnosis | + + | Sleep apnea, unspecified type - Primary | + + documented in this encounter
--- OUTSIDE RECORDS SUMMARY | ~2019-08-21 | XMS | Encounter Summary ---
Demographics + + + | Address | [address] | | | [place] [address] | + + + | Home Phone | | + + + | Preferred Language | Unknown | + + + | Marital Status | | + + + | Sikh Affiliation | 1041 | + + + | Race | Unknown | + + + | Ethnic Group | Unknown | + + + Author + + + | Author | [facility] | | | and Ankitana | + + + | Organization | [facility] | [...] Providers + +------+ + | Care Patient Support Representative Name | Role | Phone | + +------+ + | Kiran Oneill DO | PCP | | + +------+ + Encounter Details +--------+ + + + + | Date | Type | Department | Care Team | Description | +--------+ + + + + | 09/10/ | [facility] | [facility] | Seamus Richard, | | | 2018 | Encounter | MED CTR OR INTRA OP | [address] | | | | | [address] | [place] | | | | | [place] | [address] | | | | | [address] | | | | | | [phone] | | | +--------+ + + + [...] | | | | | [place] [address] | | | | | | [phone] | | | | | | | | +--------+---------+ + + + | 10/28/ | Office | Cardiology | Carol, | | | 2019 | Visit | | SALVATORE Moreno [address] | | | | | | [place], | | | | | | [place] [address] | | | | | | [phone] | | | | | | | [...] PRN, Wheezing, | | | Starting Marycarmen 09/10/18 at 1516, | | | For [...] HR < 40, | | | Starting [facility] 09/10/18 at 1516, For | | [...] glucose < 50, | | | Starting [facility] 09/10/18 at 1244, | | | [...] | | | | First dose on [facility] 09/10/18 at | | | | [...] Intravenous, PRN, Shivering, | | | Starting Marycarmen 09/10/18 at 1516, For | | | 2 doses, May Repeat once in 5 | | | min., Recovery/Phase I | | + +---+ | | | + +---+ | midazolam (VERSED) 1 mg/mL | | | injection 0.5-2 mg 0.5-2 mg, | | | Intravenous, EVERY 5 MIN PRN, | | | Anxiety, or agitation, Starting | | | [facility] 09/10/18 at 1516, Maximum | | | total dose 2 mg., Recovery/Phase | | | I | | + +---+ | | | + +---+ | ondansetron (ZOFRAN) injection | | | 4 mg 4 mg, Intravenous, ONCE | | | PRN, Nausea, Starting [facility] 09/10/18 | | | at 1516, [...] | | | | | | Starting [facility] 09/10/18 at 1244, For | | [...]
--- OUTSIDE RECORDS SUMMARY | ~2019-08-21 | XMS | Encounter Summary ---
Demographics + + + | Address | [address] | | | [place] [address] | + + + | Home Phone | | + + + | Preferred Language | Unknown | + + + | Marital Status | | + + + | Samaritan Affiliation | 1041 | + + + | Race | Unknown | + + + | Ethnic Group | Unknown | + + + Author + + + | Author | [facility] | | | and Ankitana | + + + | Organization | [facility] | | | and Ankitana [...] Team Providers + +------+ + | Care Speed Belt Sander Name | Role | Phone | + +------+ + PCP | Unavailable | + +------+ + Encounter Details +--------+ + + + + | Date | Type | Department | Care Team | Description | +--------+ + + + + | 04/16/ | Hospital | [facility] | Derick Baca, | | | 2005 - | Encounter | [facility] | MD Rashad Patterson | | | | | CENTER [address] | | | 04/17/ | | [address] | [place] | | | 2005 | | [place] | [phone] | | | | | [address] | | | | | | [phone] | | | +--------+ + + + [...] | | | | | [place] [address] | | | | | | [phone] | | | | | | | | +--------+---------+ + + + | 10/28/ | Office | Cardiology | Carol, | | | 2019 | Visit | | SALVATORE Moreno [address] | | | | | | [place], | | | | | | [place] [address] | | | | | | [phone] | | | | | | | | +--------+---------+ + + + documented as of this encounter Visit Diagnoses Not on filedocumented in this encounter"
--- OUTSIDE RECORDS SUMMARY | ~2019-08-21 | XMS | Encounter Summary ---
Demographics + + + | Address | [address] | | | [place] [address] | + + + | Home Phone | | + + + | Preferred Language | Unknown | + + + | Marital Status | | + + + | Baptism Affiliation | 1041 | + + + | Race | Unknown | + + + | Ethnic Group | Unknown | + + + Author + + + | Author | [facility] | | | and Ankitana | + + + | Organization | [facility] | | | and Ankitana | + + + | Address | Unknown | + + + | Phone | Unavailable | + + + Support + + +---------+ + | Name | Relationship | Address | Phone | + + +---------+ + | iLzz Cruz | ECON | Unknown | | + + +---------+ + | Becky Cruz | ECON | Unknown | | + + +---------+ + Care Team Providers + +------+ + | Care Grocery Checker Name | Role | Phone | + [...] [address] | | | | | [place] [address] | [place] [address] | | | | | [place] | [phone] | | | | | [place] | | | | | | [address] | | | | | | [phone] | | | +--------+ + + + [...] | | | | | | [place] [address] | | | | | | [phone] | | | | | | | | +--------+---------+ + + + | 10/28/ | Office | Cardiology | Carol, | | | 2019 | Visit | | SALVATORE Moreno [address] | | | | | | [place], | | | | | | [place] [address] | | | | | | [phone] | | | | | | | | +--------+---------+ + + + documented as of this encounter Visit Diagnoses Not on filedocumented in this encounter"
--- OUTSIDE RECORDS SUMMARY | ~2019-08-21 | XMS | Encounter Summary ---
Demographics + + + | Address | [address] | | | [place] [address] | + + + | Home Phone [...] Author | [facility] | | | and Ankitana | + + + | Organization | [facility] | | | and [...] Providers + +------+ + | Care Continuous Conveyor Screen Drier Name | Role | Phone | + +------+ + PCP | Unavailable | + +------+ + Encounter Details +--------+ + + + + | Date | Type | Department | Care Team | Description | +--------+ + + + + | 07/17/ | Hospital | [facility] | Conversion | | | 2008 | Encounter | FAMILY EM[facility]Y | Transaction, | | | | | CENTER [address] | Provider Unknown | | | | | [address] | [phone] | | | | | [place] | | | | | | [address] | | | | | | [phone] | | | +--------+ + + + [...] | | | | | [place] [address] | | | | | | [phone] | | | | | | | | +--------+---------+ + + + | 10/28/ | Office | Cardiology | Carol, | | | 2020 | Visit | | SALVATORE Moreno [address] | | | | | | [place], | | | | | | [place] [address] | | | | | | [phone] | | | | | | | | +--------+---------+ + + + documented as of this encounter Visit Diagnoses Not on filedocumented in this encounter"
--- OUTSIDE RECORDS SUMMARY | ~2019-08-21 | XMS | Encounter Summary ---
Demographics + + + | Address | [address] | | | [place] [address] | + + + | Home Phone | | + + + | Preferred Language | Unknown | + + + | Marital Status | | + + + | Christian Affiliation | 1041 | + + + | Race | Unknown | + + + | Ethnic Group | Unknown | + + + Author + + + | Author | [facility] | | | and Ankitana | + + + | Organization | [facility] | [...] Team Providers + +------+ + | Care Community Relations Specialist Name | Role | Phone | + +------+ + | [place] [facility] | PCP | | + +------+ + Reason for Visit + + + | Reason | Comments | + + + | Dental Problem | | + + + Encounter Details +--------+ + + + + | Date | Type | Department | Care Team | Description | +--------+ + + + + | 10/25/ | Emergency | [facility] | Fantasma Jennings | Tooth decay (Primary | | 2013 | | [facility] | MD [address] | Dx) | | | | [place] [address] | [facility] | | | | | [facility] | [place] [address] | | | | | [place], [place] | [phone] | | | | | [address] | | | | | | [phone] | Bello Hughes MD | | | | | | [address] | | | | | | [place], [place] | | | | | | [address] | | | | | | | [...] | | + + + +--------+------+ + + +---------+ + | Alcohol [...] + + + | Blood Pressure | 158/81 | 10/25/2013 2:58 PM | | | | | PST | | + + + + + | Pulse | 81 | 10/25/2013 2:58 PM | | | | | PST | | + + + + + | Temperature | 36.5 C (97.7 F) | 10/25/2013 2:58 PM | | | | | PST | | + + + + + | Respiratory Rate | 18 | 10/25/2013 2:58 PM | | | | | PST | | + + + + + | Oxygen Saturation | 96% | 10/25/2013 2:58 PM | | | | | PST [...] documented in this encounter Discharge Instructions Instructions Ángel Adams PA-C - 10/25/2013Take medication as directed. Followup with the dentist as soon as possible from the list provided. AttachmentsThe following attachments cannot be sent through Care Everywhere.UNDERSTANDING Reji MALCOLM DECAY (POLISH)documented in this encounter Medications at Time of [...] + + + +---------+ + + | amoxicillin | Take 1 capsule by | 30 | 0 | 10/25/19 | | | (AMOXIL) 500 MG | mouth 3 times daily | capsule | | 14 | 4 | | capsule | for 10 days. | | | | | + + [...] | | Take 1-2 tablets by | 15 | 0 | 10/25/19 | | | HYDROcodone-acetamin | mouth every 6 hours | tablet | | 14 | 4 | | ophen (NORCO) 5-325 | as [...] | | | | | [place] [address] | | | | | | [phone] | | | | | | | | +--------+---------+ + + + | 10/28/ | Office | Cardiology | Carol, | | | 2019 | Visit | | SALVATORE Moreno [address] | | | | | | [place], | | | | | | [place] [address] | | | | | | [phone] | | | | | | | | +--------+---------+ + + + documented as of this encounter Visit Diagnoses + + | Diagnosis | + + | Tooth decay - Primary Unspecified dental caries | + + documented in this encounter"
--- OUTSIDE RECORDS SUMMARY | ~2019-08-21 | XMS | Encounter Summary ---
Demographics + + + | Address | [address] | | | [place] [address] | + + + | Home Phone [...] + + | Author | [facility] | | | and Ankitana | + + + | Organization | [facility] | | [...] Team Providers + +------+ + | Care Filler Sifter Helper Name | Role | Phone | + +------+ + | Kiran Oneill DO | PCP | | + +------+ + Encounter Details +--------+ + + + + | Date | Type | Department | Care Team | Description | +--------+ + + + + | 07/21/ | Abstract | [facility] | Carol, | | | 2019 | | CARDIOLOGY [address] | Tiffanie DRAG [address] | | | | | [place], | [place], | | | | | [place] [address] | [place] [address] | | | | | [phone] | | | | | | | [...] | | | | | [place] [address] | | | | | | [phone] | | | | | | | | +--------+---------+ + + + | 10/28/ | Office | Cardiology | Carol, | | | 2019 | Visit | | SALVATORE Moreno [address] | | | | | | [place], | | | | | | [place] [address] | | | | | | [phone] | | | | | | | [...] + + documented in this encounter Results Comprehensive Metabolic Panel (06/24/2019) + +-------+ + [...] Blood | + + External Lab: BUN (06/24/2019) + +-------+ + [...] + + | Blood | + + documented in this encounter Visit Diagnoses Not on filedocumented in this encounter"
--- OUTSIDE RECORDS SUMMARY | ~2019-08-21 | XMS | Encounter Summary ---
Demographics + + + | Address | [address] | | | [place] [address] | + + + | Home Phone [...] + + | Author | [facility] | | | and Ankitana | + + + | Organization | [facility] | | | and Ankitana [...] Team Providers + +------+ + | Care Cyber Transport Systems Specialist Name | Role | Phone | + +------+ + | Yolanda Lee | PCP | | + +------+ + Encounter Details +--------+ + + + + | Date | Type | Department | Care Team | Description | +--------+ + + + + | 02/25/ | Hospital | [facility] | Jesse Siddiqi MD | Cellulitis and | | 2015 | Encounter | [facility] | [address], | abscess of hand, | | | | ORTHOPEDICS [address] | [address] [place], | except fingers and | | | | [address] [place], [place] | [place] [address] | thumb; Bacteremia | | | | [address] | [phone] | due to Streptococcus | | | | [phone] | | / Sepsis | +--------+ + [...] + + + | Blood Pressure | 126/66 | 02/25/2015 5:00 PM | | | | | PDT | | + + + + + | Pulse | 77 | 02/25/2015 5:00 PM | | | | | PDT | | + + + + + | Temperature | 37.3 C (99.1 F) | 02/25/2015 5:00 PM | | | | | PDT | | + + + + + | Respiratory Rate | 16 | 02/25/2015 5:00 PM | | | | | PDT | | + + + + + | Oxygen Saturation | 98% | 02/25/2015 5:00 PM | | | | | [...] | | | | | [place] [address] | | | | | | [phone] | | | | | | | | +--------+---------+ + + + | 10/28/ | Office | Cardiology | Carol, | | | 2019 | Visit | | SALVATORE Moreno [address] | | | | | | [place] | | | | | | [place] [address] | | | | | | [phone] | | | | | | | [...] 2 g in | New Bag | 02/26/20 | 2 g | 100 | | | sodium chloride 0.9% 50 mL IVPB | | 15 5:26 | | mL/hr | | | 2 g, Intravenous, Administer over | | PM PDT | | | | | 30 Minutes, EVERY 24 HOURS | | | | | | | (Daily), First dose on Sat | | | | | | | 02/25/15 at 1730, For 14 days, | | | | [...]
--- OUTSIDE RECORDS SUMMARY | ~2019-08-21 | XMS | Encounter Summary ---
Demographics + + + | Address | [address] | | | [place] [address] | + + + | Home Phone [...] | Author | [facility] | | | and Ankitana | + + + | Organization | [facility] | | | and [...] Team Providers + +------+ + | Care Trommel Tender Name | Role | Phone | + [...] [address] | | | | | [place], | [place], | | | | | [place] [address] | [place] [address] | | | | | [phone] | [phone] | | | | | | | [...] | | | | | [place] [address] | | | | | | [phone] | | | | | | | | +--------+---------+ + + + | 10/28/ | Office | Cardiology | Carol, | | | 2019 | Visit | | SALVATORE Moreno [address] | | | | | | [place] | | | | | | [place] [address] | | | | | | [phone] | | | | | | | [...]
--- OUTSIDE RECORDS SUMMARY | ~2019-08-21 | XMS | Encounter Summary ---
Demographics + + + | Address | [address] | | | [place] [address] | + + + | Home Phone [...] Author | [facility] | | | and Ankitana | + + + | Organization | [facility] | | | and [...] Team Providers + +------+ + | Care Pals Nurse Name | Role | Phone | + [...] | | | | | [address] | [place] | | | | | [place] | [address] | | | | | [address] | | | | | | [phone] | | | +--------+ + + + [...] 09/10/18 1550 by | | eral | [id number] catheter system; | LINDSAY LOWRY | Yecenia [...] | | | | | [place] [address] | | | | | | [phone] | | | | | | | | +--------+---------+ + + + | 10/28/ | Office | Cardiology | Gray, | | | 2020 | Visit | | SALVATORE Moreno [address] | | | | | | [place], | | | | | | [place] [address] | | | | | | [phone] | | | | | | | [...]
--- OUTSIDE RECORDS SUMMARY | ~2019-08-21 | XMS | Encounter Summary ---
Demographics + + + | Address | [address] | | | [place] [address] | + + + | Home Phone [...] | [facility] | | | and Ankitana | + + + | Organization | [facility] | | | and Ankitana | + + + | Address | Unknown | + + + | Phone | Unavailable | + + + Support + + +---------+ + | Name | Relationship | Address | Phone | + + +---------+ + | Lizz Cruz | ECON | Unknown | | + + +---------+ + | Bceky Cruz | ECON | Unknown | | + + +---------+ + Care Team Providers + +------+ + | Care Group Captain Name | Role | Phone | [...] | apnea, | [address] | [place] | | | | | unspecified | [address] [place] | [place], | | | | | type | [place], [place] | [place] [address] | | | | | Procedures | [address] | Phone: | | | | | [place] POLYSOM | Phone: | [phone] | | | | | 6/>YRS SLEEP | [phone] | Fax: | | | | | 4/> ADDL | Fax: | [phone] | | | | | SAJAN ATTND | [phone] | | | | | | [place] [...] + + | 03/10/ | Hospital | [facility] | Jessy Agarwal MD | Sleep apnea, | | 2019 - | Encounter | [facility] | [address] | unspecified type | | | | CENTER [address] | [place] | | | 03/11/ | | [place] | [address] | | | 2018 | | [address] | | | | | | [phone] | | | +--------+ + + + [...] | | | | | [place] [address] | | | | | | [phone] | | | | | | | | +--------+---------+ + + + | 10/28/ | Office | Cardiology | Carol, | | | 2019 | Visit | | SALVATORE Moreno [address] | | | | | | [place] | | | | | | [place] [address] | | | | | | [phone] | | | | | | | [...] At | + + + | Jessy Agarwal | | | 03/21/2019 13:29 [facility] | | | [place] [address] Polysomnogram | | | Report on Smitha [...] | sleep quality during sleep study as usual.[employer] Quality Inspector note: patient | | | tried and [...] have been created with | | | [employer] voice recognition software. Occasional wrong-word or | [...] this chart may have been created with [employer] voice | | |recognition software. Occasional wrong-word [...] Jessy Agarwal MD - 03/21/2019 1:07 PM PDT [facility] | | [place], [place] [id number] Report on Smitha | | Flakita Pichardo [...] quality during sleep study as | | usual.[employer] Quality Inspector note: patient tried and tolerated medium airfit [...] this chart may have been created with [employer] voice recognition software. | | Occasional wrong-word [...] this chart may have been created with [employer] voice recognition software. Occasi onal wrong-word or [...]
--- OUTSIDE RECORDS SUMMARY | ~2019-08-21 | XMS | Encounter Summary ---
Demographics + + + | Address | [address] | | | [place] [address] | + + + | Home Phone [...] | Author | [facility] | | | and Ankitana | + + + | Organization | [facility] | | | and [...] Team Providers + +------+ + | Care Acute Care Occupational Therapist Name | Role | Phone | + +------+ + | Yolanda Lee | PCP | | + +------+ + Encounter Details +--------+ + + + + | Date | Type | Department | Care Team | Description | +--------+ + + + + | 02/26/ | Hospital | [facility] | Jesse Siddiqi MD | Cellulitis and | | 2015 | Encounter | [facility] | [address], | abscess of hand, | | | | [facility] [address] | [address] [place], | except fingers and | | | | [address] [place], [place] | [place] [address] | thumb; Bacteremia | | | | [address] | [phone] | due to Streptococcus | | | | [phone] | | / Sepsis | +--------+ + [...] | | | | | [place] [address] | | | | | | [phone] | | | | | | | | +--------+---------+ + + + | 10/28/ | Office | Cardiology | Carol, | | | 2019 | Visit | | SALVATORE Moreno [address] | | | | | | [place] | | | | | | [place] [address] | | | | | | [phone] | | | | | | | [...]
--- OUTSIDE RECORDS SUMMARY | ~2019-08-21 | XMS | Encounter Summary ---
Demographics + + + | Address | [address] | | | [place] [address] | + + + | Home Phone [...] | Author | [facility] | | | and Ankitana | + + + | Organization | [facility] | | | and Ankitana [...] Team Providers + +------+ + | Care Commission Associate Name | Role | Phone | [...] + + | 06/09/ | Surgery | AMILCAR MATAMOROSED | Shad Schuler, | CV Cor Angio | | 2018 | | [facility] CV | MD [address] | | | | | INTRA OP [address] | [facility] [address] | | | | | Ave [place], [place] | [place] [address] | | | | | [address] | [phone] | | | | | [phone] | | | +--------+---------+ + + + [...] Pharmacist notified and gave patient number for [facility] pharmacy to transfer medications in AM. Given night time pain medications prior to leaving . The AVS was reviewed with patient and family with no pending questions or concerns. All b elongings were collected from the room and sent with the family. The pt is discharging home with family in [place]. New FWW sent with patient. No further questions and all teaching demo nstrated back to RN. Plan for d/c at 1800 when family arrives. Juancho Dalal AR NP - 06/15/2018 12:01 PM PDT [facility] Discharge Summary [...] precauti ons. [facility] and our social media designer has confirmed that she is free to [...] Discontinued Medications lisinopril 20 mg tablet aka: FATOU KLEINSTRIL Discharged Condition: good Consults: - Diabetic services for blood glucose management. - Physical and occupational therapy for post-op rehab. - [facility] [facility]. Disposition: Home with family. Patient was advised to call our office or their medical service representative with any questions. Follow-Up: Follow-up Information SALVATORE Ventura. Go on 06/23/2018. Specialty: Nurse Practitioner Why: Hospital follow up scheduled at 11:[address] Roa Contact information: [address] [facility] [address] Hemanth Webster MD. Schedule an appointment as soon as possible for a visit on 06/29/2018 . Specialty: Cardiothoracic Surgery Why: 11:30 AM Contact information: [address], [place] [address] [facility] [address] Schedule an appointment as soon as possible for a visit with [facility] [facility] [place]. Why: Please call to schedule your 1 month follow-up with cardiology. Contact information: [address] [place] [address] [facility] [address] Time spent on discharge planning: greater than 30 minutes CABG Checklist ACEI/ARB/ARNI prescribed: No - Hypotension Aspirin prescribed: Not addressed Beta mateus (evidence-based) prescribed: Yes Beta mateus prescribed: N/A - LV EF is less than 41% High intensity statin prescribed: Yes Referral to cardiac rehab: Yes Tobacco cessation counseling provided: Yes [facility] [address], [address] [place] [address] Portions of this chart may have been created with [employer] voice recognition software. Occasi onal wrong-word or [...] breath, please call Luis Alfredo estrada at [phone]. 2. For problems or concerns with your incision or your chest, please call [facility]) at [phone]. After Coronary Artery Bypass Surgery When you [...] by medication, call your healthcare pr ovider. [phone] [facility], [address] [place] [address], [place] [address]. All rights reserve d. This information is [...] | | infarction) ([facility]), | | | | | | | Polysubstance abuse | | | | | | | ([facility]) | | | | | | + [...] bedside. Pt states she was brought to [facility] by [facility] but states she is no l onger in custody. No guards at the door. SW Hardwood Floor Layer suggested SW contact [facility] to confirm. SW spoke with [facility] who confirms pt was released. SW spoke with pt regarding discharge plan. Pt plans to discharge to friend's home. SW available should further discharg e planning needs arise. Keith Lopez MD - 06/15/2018 8:45 AM PDT [facility] PATIENT NAME: Smitha Fletcher : 1955: AGE: [...] dilol. 2. Follow-up requested. Keith Harp MD, [facility] Portions of this chart were created with [employer] voice recognition software. Occasional wro ng-word or "sound-alike" substitutions may have occurred due to the inherent limitations of voice recognition software. Please read the chart carefully and recognize, using context, w here those substitutions have occurred. eonte Lee MD - 06/15/2018 7:15 AM PDTFormatting of this no te might be different from the original. [facility] Pt. Name/Age/: Smitha Fletcher 62 y.o. 1955 Med. Record Number: [id number] Date of admission: 06/07/2018 POD # 4 Procedure: CABG X 3 Surgeon: Eleanor Subjective New complaints: poor sternal precautions. No c/o this morning. Acknowledges that came from [facility]. Not sure where she is going. No [...] signed by: Hector Decker PA-C Cardiothoracic Surgery [facility] [address] [place] [address] 06/15/2018 7:15 [facility] Agree with detailed plan nicely outlined by Hector Ashley Moreland MSW - 06/14/2018 1:05 PM PDTSOCIAL WORK PLAN: TBD INTERVENTION: SW acknowledged [facility]. [facility] per [facility] review and may have to go back there upon DC. SW will continue to follow for DC planning. Frandy sEtrada ARNP - 06/14/2018 9:11 AM PDTBlood Glucose log reviewed. Patient is stable, with control led blood glucose. Not requiring insulin Diabetes Service will sign off. Medication Reconciliation for diabetes medications has been completed. Please contact us at [phone] should the need arise. Thank you for [...] signed by: Rip Yao M.D. CardioThoracic Surgery [facility] 06/14/2018 9:23 [facility] Pt. Name/Age/: Smitha Fletcher 62 y.o. 1955 Med. Record Number: [id number] Date of admission: 06/07/2018 POD # 3 [...] the patient is going. Willl have social media designer start arrangements. Problem List Patient Active Problem [...] signed by: Hector Decker PA-C Cardiothoracic Surgery [facility] [address] [place] [address] 06/14/2018 8:59 [facility] Dave Hill MD - 06/14/2018 8:07 AM PDT [facility] PATIENT NAME: Smitha Fletcher : 1955: AGE: [...] Portions of this chart were created with [employer] voice recognition software. Occasional wro ng-word or "sound-alike" substitutions may have occurred due to the inherent limitations of voice recognition software. Please read the chart carefully and recognize, using context, w here those substitutions have occurred.Electronically signed by Dave Bansal MD at 0 06/14/2018 2:17 PM PDTFrandy Squires [facility] - 06/13/2018 2:37 PM PDT Blood Sugar Management Progress Note Patient: Smitha Fletcher Date of : 1955 Admit Date: 06/07/2018 Date of Service: 06/13/2018 PCP: Yoladna Lee Admitting Physician: Emma Lowe MD Code [...] Per RN; she will be discharging from [facility] to [facility]. Assessment for glucose [...] - 06/12 0659 06/12 700 - 06/13 - 06/13 1452 Most Rec [...] asymptomatic. Selected Labs/Studies: Recent Labs Lab 06/13/18 04006/12/1831106/11/18 16306/11/18 15206/11/18 14506/11/18 031 WBC 11.8* 12.1* 16.3* -- -- -- 7.3 HGB 10.3* 10.7* 11.0* 8.2* -- < > 12.6 HCT 30.7* 31.9* 32.0* -- -- -- 37.4 PLT 192 244 228 -- 208 -- 349 < > = values in this interval not displayed. Recent Labs Lab 06/13/18 04006/12/18 03106/11/18 2301 06/11/18195706/11/18 16306/11/18 16306/11/18 1525 06/11/18 1450 06/11/18 1035 06/11/18 03106/10/18 1722 06/09/18 0307 NA 137 146* -- [...] by: SALVATORE Elias 06/13/2018 14:53 Diabetes team, [facility] [phone] Amaury Hill MD - 06/13/2018 10:27 AM PDTFormatting of this note might be different from the origi nal. [facility] PATIENT NAME: Smitha Fletcher : 1955: AGE: [...] Portions of this chart were created with [employer] voice recognition software. Occasional wro ng-word or [...] signed by: Rip Yao M.D. CardioThoracic Surgery [facility] 06/13/2018 9:35 [facility] Pt. Name/Age/: Smitha Fletcher 62 y.o. 1955 Med. Record Number: [id number] Date of admission: 06/07/2018 POD #2 Procedure: [...] tip is 4.2 c m above the cnadice. Right IJ central venous catheter tip is [...] signed by: Hector Decker PA-C Cardiothoracic Surgery [facility] [address] [place] [address] 06/13/2018 8:11 [facility] Kezia Downing RN - 06/12/2018 3:10 PM [...] discharge planning. ASSESSMENT/CHART REVIEW: Pt resides in [place]. She has Medicare coverage. COPD, is risk for readmission. If pt d oes not need placement she may benefit from home health post acute care. D/C TRANSPORT: TBD BARRIERS TO D/C: Medical stability CONTACTS: Hanna Sethi: [phone] signed by JEFFY Cabrales at 06/12/2018 1 2:24 PM Dave Hill MD - 06/12/2018 11:33 AM PDTFormatting of this note might b e different from the original. [facility] PATIENT NAME: Smitha Fletcher : 1955: [...] 1.0 0.4 - 1.5 % Comment PS8 NEJ240 O2 Content, Arterial 15.7 15.0 - 23.0 [...] 22:29 Result Value Ref Range Product Code E3179O35 UNIT # [id number] UNIT ABO O UNIT RH NEG CROSSMATCH INTERP Compatible Unit Status XM Blood Product Expiration Date and Time Product Blood Type Barcode 9500 Product Code N7293S96 UNIT # [id number] UNIT ABO O UNIT RH NEG CROSSMATCH INTERP Compatible Unit Status IS Blood Product Expiration Date and Time 012752949259 Product Blood Type Barcode 9500 Blood Gas, [...] 6:53 Result Value Ref Range Product Code G3925S58 UNIT # [id number] UNIT ABO O UNIT RH NEG CROSSMATCH INTERP Compatible Unit Status XM Blood Product Expiration Date and Time 957109430523 Product Blood Type Barcode 9500 POC Glucose [...] Duvall MD - 06/12/2018 10:12 AM PDT [facility] Hemanth Webster [...] drips, and nursing assessments. Starr Ray RN abil Howard RN - 06/11/2018 8:39 AM PDTPt was [...] Date of Service: 06/10/2018 PCP: Yolanda Lee [facility] Day: 1 Hospital Course: This is a 62 y.o.femalewith hx substance abuse, [place] and stent [place] [address] Brittnee Sandoval cardiology. [facility], complaining of severe 8-9/10 burning chest pain [...] 3.2 oz) 05/03/17 63.5 kg (140 lb) 03/23/17 68 kg (150 lb) Active Lines PIV Line Peripheral IV Line - Single Lumen 06/10/18 1446 Right Forearm cclt-rfs-wdkfjg catheter sys tem 22 gauge;1 in length [...] - 99 mg/dL Final Comment: Performed by [facility] [address] [place] [address] All pertinent labs and imaging have been [...] this chart may have been created with [employer] voice recognition software. Occasi onal wrong-word or sound-alike substitutions may have occurred due to the inherent meyers itations of voice recognition software. Please read the chart carefully and recognize, using context, where these substitutions have occurred Brenna Henderson Sd dical Student - 06/10/2018 11:05 AM PDTFormatting of this note might be different from the o riginal. PATIENT NAME: Smitha Fletcher : 1955: AGE: 62 y.o. ADMISSION DATE: 06/07/2018 SERVICE DATE: 06/10/18 PRIMARY CARE: Yolanda Lee, SALVATORE Matias, Medical Student CARDIOLOGY DAILY PROGRESS NOTE 06/10/18 [...] TTE 06/08/18 showed LVEF of 45% with coqsfhjy-es-yuwzxs hypokinesis of lateral and inferio r castillo. [...] female with a pmhx of polysubstance abuse, CAD/TX s/p stent (2011), ischemic EFrEF (LVEF of 45%), HTN, bipolar disorder, nicotine dependence and incarce ration that [facility] with severe left sided chest pain that [...] r educational purposes. Please refer to attending/resident/physician data assistant/nurse practit ioner note regarding further patient care. Geno Carver RRT - 06/10/2018 9:57 AM PDTAssessed for Pulmonary Rehab. Pt does not qualif y. Referred to for Home Health. 9 :58 AM PDTMyJeffy kelley MD - 06/10/2018 9:36 AM PDTFormatting of [...] TTE on 018 revealed LVEF = 45%, ogjvleje-el-rpwbtn hypokinesis of lateral and inferior castillo, julian [...] Complaint: Chest pain Hospital Course: 62F PMH CAD/TX s/p stent (2011), ischemic HFrEF (LVEF = 45%), HTN, polysubstance abuse (met hamphetamine & marijuana), HCV, bipolar disorder, nicotine dependence and [facility] pres [facility] w/ severe, burning, substernal chest pain w/ radiation to left shoulder and associated nausea and vomiting. Workup in ED revealed troponin elevation (peak 0.311 this admission) and patient was admitt ed for further workup and management w/ cardiology. Labs in ED also revealed UDS positive fo r amphetamine, methamphetamine, benzodiazepines and opiates. TTE revealed LVEF = 45%, bjwykvcj-sq-vxnjqa hypokinesis of lateral and inferior castillo, mitr [...] Date of Service: 06/09/2018 PCP: Yolanda Lee [facility] Day: 0 Hospital Course: This is a 62 y.o.femalewith hx substance abuse, TX and stent [place] [address] Sandoval cardiology. [facility], complaining of severe 8-9/10 burning chest pain [...] hypokinesis present but the patient has has TX's in the past . Mild LVH. Stress [...] Objective: Vital Signs 06/07 700 - 06/08 - 06/09 0659 06/09 700 - 06/09 [...] Single Lumen 06/09/18 0836 Left Distal Forearm gaww-nnn-nbdela cathet er system 20 gauge;1 1/4 in [...] this chart may have been created with [employer] voice recognition software. Occasi onal wrong-word or sound-alike substitutions may have occurred due to the inherent meyers itations of voice recognition software. Please read the chart carefully and recognize, using context, where these substitutions have occurred oulet, Shad Herrera MD - 06/09/2018 9:50 AM PDT [...] TTE on 018 revealed LVEF = 45%, fpdylyqm-tc-bcbsqt hypokinesis of lateral and inferior castillo, julian [...] Complaint: Chest pain Hospital Course: 62F PMH CAD/TX s/p stent (2011), ischemic HFrEF (LVEF = 45%), HTN, polysubstance abuse (met hamphetamine & marijuana), HCV, bipolar disorder, nicotine dependence and [facility] w/ severe, burning, substernal chest pain w/ radiation to left shoulder and associated nausea and vomiting. Workup in ED revealed troponin elevation (peak 0.311 this admission) and patient was admitt ed for further workup and management w/ cardiology. Labs in ED also revealed UDS positive fo r amphetamine, methamphetamine, benzodiazepines and opiates. TTE revealed LVEF = 45%, ldsadxre-wx-rikytb hypokinesis of lateral and inferior castillo, mitr [...] % Min: 95 % Max: 98 % / 1901 - 09/ 0700 In: 2318 [P.O.:780; [...] Date of Service: 06/08/2018 PCP: Yolanda Lee [facility] Day: 0 Hospital Course: This is a 62 y.o. female with hx substance abuse, TX and stent [place] [address] Riya banuelos cardiology. [facility], complaining on sever -06/15 burning chest pain [...] hypokinesis present but the patient has has TX's in the past . Mild LVH. Stress [...] 06/07/18 1545 Right Anterior (palmar);Medial Forearm ove h-svp-aawgeh catheter system 20 gauge;other (see comments) 1 [...] this chart may have been created with [employer] voice recognition software. Occasi onal wrong-word or sound-alike substitutions may have occurred due to the inherent meyers itations of voice recognition software. Please read the chart carefully and recognize, using context, where these substitutions have occurred Lexi, Shad Herrera MD - 10:22 AM PDT [...] Portions of this chart were created with [employer] voice recognition software. Occasional wro ng-word or "sound-alike" substitutions may have occurred due to the inherent limitations of voice recognition software. Please read the chart carefully and recognize, using context, w here those substitutions have occurred.Electronically signed by Shad Schuler MD at 06/08 10:27 AM Rhiannon Irene RN - 06/07/2018 3:09 PM [id number] arrived to floor. Somu nlent. Asking very [...] | | | | | [place] [address] | | | | | | [phone] | | | | | | | | +--------+---------+ + + + | 10/28/ | Office | Cardiology | Carol, | | | 2019 | Visit | | SALVATORE Moreno [address] | | | | | [place], | | | | | | [place] [address] | | | | | | [phone] | | | | | | | [...] + + +--------+ + + | [facility] | Outpatient | Routin | NSTEMI (non-ST | Ordered: 06/15/2018 | | Rehab | Referral | e | elevated myocardial | | | | | | infarction) ([facility]) | | + + +--------+ + + [...] [facility] | | | | Performed by [facility] [address] | [address] | | | | [address] [place] | | HEART | | | | [address] | | MEDICAL | | | | [...] + + | [facility] | [address] | [place] [address] | | | [facility] | | | | | LABORATORY [...] | | MEDICAL | | | | [facility] [address], | | CENTER | | | | [place] [address] | | LABORATORY | | | | [...] + + | [facility] | [address] | [place] [address] | | | [facility] | | | | | LABORATORY [...] + + + + | Product | [id number] | | REFERENCE | | | Code | | | [facility] [place] | | | | | | [facility] | | | | | | [facility] | | | | | | B[facility] | | | | | | CENTER | | + + + + + + | UNIT # | [id number] | | REFERENCE | | | | | | [facility] [place] | | | | | | [facility] | | | | | | [facility] | | | | | | BLOOD | | | | | | CENTER | | + + + + + + | UNIT ABO | O | | REFERENCE | | | | | | [facility] [place] | | | | | | [facility] | | | | | | [facility] | | | | | | BLOOD | | | | | | CENTER | | + + + + + + | UNIT RH | NEG | | REFERENCE | | | | | | [facility] [place] | | | | | | [facility] | | | | | | [facility] | | | | | | BLOOD | | | | | | CENTER | | + + + + + + | CROSSMATCH | Compatible | | REFERENCE | | | INTERP | | | [facility] [place] | | | | | | [facility] | | | | | | [facility] | | | | | | BLOOD | | | | | | CENTER | | + + + + + + | Unit Status | RE | | REFERENCE | | | | | | [facility] [place] | | | | | | [facility] | | | | | | [facility] | | | | | | BLOOD | | | | | | CENTER | | + + + + + + | Blood | [id number] | | REFERENCE | | | Product | | | [facility] [place] | | | Expiration | | | [facility] | | | Date and | | | [facility] | | | Time | | | BLOOD | | | | | | CENTER | | + + + + + + | Product | 9500 | | REFERENCE | | | Blood Type | | | [facility] [place] | | | Barcode | | | [...] + + + | Specimen Expiration Date: [id number] | REFERENCE LAB | | | [place] [facility] | | | [facility] | | | [facility] C[facility] | + + + + + + + + | Performing | Address | City/State/Zipcode | Phone Number | | Organization | | | | + + + + + | REFERENCE LAB | [address] | [place] [address] | [phone] | | [place] [facility] | | | | | [facility] [...] | | | POC | Performed by [facility] [address] | | [address] | | | | [address] [place] | | HEART | | | | [address] | | MEDICAL | | | | [...] + + | [facility] | [address] | [place] [address] | | | [facility] | | | | | LABORATORY [place] | | | | + + + + + Red Blood Cells (06/14/2018 12:12 PM PDT) + + + + + + | Component | Value | Ref Range | Performed | Pathologist | | | | | At | Signature | + + + + + + | Product | [id number] | | REFERENCE | | | Code | | | [place] | | | | | | [facility] | | | | | | [facility] | | | | | | BLOOD | | | | | | CENTER | | + + + + + + | UNIT # | [id number] | | REFERENCE | | | | | | [facility] [place] | | | | | | [facility] | | | | | | [facility] | | | | | | BLOOD | | | | | | CENTER | | + + + + + + | UNIT ABO | O | | REFERENCE | | | | | | [facility] [place] | | | | | | [facility] | | | | | | [facility] | | | | | | BLOOD | | | | | | CENTER | | + + + + + + | UNIT RH | NEG | | REFERENCE | | | | | | [facility] [place] | | | | | | [facility] | | | | | | [facility] | | | | | | BLOOD | | | | | | CENTER | | + + + + + + | CROSSMATCH | Compatible | | REFERENCE | | | INTERP | | | [facility] [place] | | | | | | [facility] | | | | | | [facility] | | | | | | BLOOD | | | | | | CENTER | | + + + + + + | Unit Status | IS | | REFERENCE | | | | | | [facility] [place] | | | | | | [facility] | | | | | | [facility] | | | | | | BLOOD | | | | | | CENTER | | + + + + + + | Blood | [id number] | | REFERENCE | | | Product | | | [facility] [place] | | | Expiration | | | [facility] | | | Date and | | | [facility] | | | Time | | | BLOOD | | | | | | CENTER | | + + + + + + | Product | 9500 | | REFERENCE | | | Blood Type | | | [facility] [place] | | | Barcode | | | [facility] | | | | | | [facility] | | | | | | BLOOD | | | | | | CENTER | | + + + + + + | Product | [id number] | | REFERENCE | | | Code | | | [facility] [place] | | | | | | [facility] | | | | | | [facility] | | | | | | BLOOD | | | | | | CENTER | | + + + + + + | UNIT # | [id number] | | REFERENCE | | | | | | [facility] [place] | | | | | | [facility] | | | | | | [facility] | | | | | | BLOOD | | | | | | CENTER | | + + + + + + | UNIT ABO | O | | REFERENCE | | | | | | [facility] [place] | | | | | | [facility] | | | | | | [facility] | | | | | | BLOOD | | | | | | CENTER | | + + + + + + | UNIT RH | NEG | | REFERENCE | | | | | | [facility] [place] | | | | | | [facility] | | | | | | [facility] | | | | | | BLOOD | | | | | | CENTER | | + + + + + + | CROSSMATCH | Compatible | | REFERENCE | | | INTERP | | | [facility] [place] | | | | | | [facility] | | | | | | [facility] | | | | | | BLOOD | | | | | | CENTER | | + + + + + + | Unit Status | IS | | REFERENCE | | | | | | [facility] [place] | | | | | | [facility] | | | | | | [facility] | | | | | | BLOOD | | | | | | CENTER | | + + + + + + | Blood | [id number] | | REFERENCE | | | Product | | | [facility] [place] | | | Expiration | | | [facility] | | | Date and | | | [facility] | | | Time | | | BLOOD | | | | | | CENTER | | + + + + + + | Product | 9500 | | REFERENCE | | | Blood Type | | | [facility] [place] | | | Barcode | | | [...] + + + | Specimen Expiration Date: [id number] | [facility] LAB | | | [place] [facility] | | | [facility] | | | [facility] | + + + + + + + + | Performing | Address | City/State/Zipcode | Phone Number | | Organization | | | | + + + + + | REFERENCE LAB | [address] | [place] [address] | [phone] | | [place] [facility] | | | | | [facility] [...] | | | POC | Performed by [facility] [address] | | [address] | | | | [address] [place] | | HEART | | | | [address] | | MEDICAL | | | | [...] + | [facility] | [address] | [place] [address] | | | [facility] | | | | | LABORATORY [...] | | | POC | Performed by [facility] [address] | | [address] | | | | [address], [place] | | HEART | | | | [address] | | MEDICAL | | | | [...] + + | [facility] | [address] | [place] [address] | | | [facility] | | | | | LABORATORY [...] | | | POC | Performed by [facility] [address] | | [address] | | | | [address] [place] | | HEART | | | | [address] | | MEDICAL | | | | [...] + | [facility] | [address] | [place] [address] | | | [facility] | | | | | LABORATORY [...] | | | POC | Performed by [facility] [address] | | [address] | | | | [address], [place] | | HEART | | | | [address] | | MEDICAL | | | | [...] + + | [facility] | [address] | [place] [address] | | | [facility] | | | | | LABORATORY [...] | | | POC | Performed by [facility] [address] | | SACRED | | | | [address] [place] | | HEART | | | | [address] | | MEDICAL | | | | [...] + + | YINE SACR | [address] | [place] [address] | | | [facility] | | | | | LABORATORY [...] | | | POC | Performed by [facility] [address] | | SACRED | | | | [address], [place] | | HEART | | | | [address] | | MEDICAL | | | | [...] + + | AMILCAR CARDONA | [address] | [place] [address] | | | [facility] | | | | | LABORATORY [...] Procedure Note | + + | Tim, Presley Results In - 06/13/2018 6:50 AM PDT [...] [facility] | | | | Performed by [facility] [address] | | SACRED | | | | [address] [place] | | HEART | | | | [address] | | MEDICAL | | | | [...] + + | [facility] SACRED | [address] | [place] [address] | | | [facility] | | | | | LABORATORY [...] | | MEDICAL | | | | [facility] [address], | | CENTER | | | | [place] [address] | | LABORATORY | | | | [...] + + | YARELISDEMIKarly BRENDAN | [address] | [place] [address] | | | [facility] | | | | | LABORATORY [...] | | | POC | Performed by [facility] [address] | | SACRED | | | | [place] | | HEART | | | | [address] | | MEDICAL | | | | [...] + + | [facility] SACRED | [address] | [place] [address] | | | [facility] | | | | | LABORATORY [...] | | | POC | Performed by [facility] [address] | | SACRED | | | | [address], [place] | | HEART | | | | [address] | | MEDICAL | | | | [...] + | YARELISDEMIKarly MATAMOROSFAUSTO | [address] | [place] [address] | | | [facility] | | | | | LABORATORY [...] | | | POC | Performed by [facility] [address] | | SACRED | | | | [address] [place] | | HEART | | | | [address] | | MEDICAL | | | | [...] + + | [facility] SACRED | [address] | [place] [address] | | | [facility] | | | | [...] | | | POC | Performed by [facility] [address] | | SACRED | | | | [address], [place] | | HEART | | | | [address] | | MEDICAL | | | | [...] + + | YARELISCARLOS SATURNINOFAUSTO | [address] | [place] [address] | | | [facility] | | | | | LABORATORY [...] | | | POC | Performed by [facility] [address] | | SACRED | | | | [address] [place] | | HEART | | | | [address] | | MEDICAL | | | | [...] + + | [facility] SACRED | [address] | [place], [place] | | | [facility] [...] | [facility] | | | POC | [facility] [address], | | SACRED | | | | [place] | | HEART | | | |Performed by [facility] [address], [place], [place] | | MEDICAL | | | [...] + + | AMILCAR CARDONA | [address] | [place] [address] | | | [facility] | | | | | LABORATORY [...] | | | POC | Performed by [facility] [address] | | SACRED | | | | [address] [place] | | HEART | | | | [address] | | MEDICAL | | | | [...] + + | AMILCAR CARDONA | [address] | [place] [address] | | | [facility] | | | | | LABORATORY [...] by | 65 - 99 mg/dL | AMILCAR | | | POC | [facility] [address], | | SACRED | | | | [place] [address] | | HEART | | | |Performed by [facility] [address], [place], [place] | | MEDICAL | | | [...] + + | PROVID[facility] SACRED | [address] | [place] | | | [facility] [...] + | Presley Dumont Results In - 06/12/2018 4:19 AM PDT [...] | [facility] | | | POC | [facility] [address], | | SACRED | | | | [place] [address] | | HEART | | | |Performed by [facility] [address], [place] [address] | | MEDICAL | | | | | | CENTER | | | | | | LABORATORY | | | | | | JAMINNER | | + + + + --+ + + + | Specimen | + + | Blood specimen | | (specimen) | + + + + + + + | Performing | Address | City/State/Zipcode | Phone Number | | Organization | | | | + + + + + | AMILCAR CARDONA | [address] | [place] [address] | | | [facility] | | | | | LABORATORY [...] | TRACEMASTER | | Duration:184 msP [place]:5 degP [place]:55 degQ Onset:508 | | | msQRSD Interval:104 msQT Interval:452 msQTcB:452 msQTcF:452 msQRS | | | Horizontal [place]:129 degQRS [place]:-53 degI-40 [place]:77 degI-40 | | | [place]:-44 degT-40 Horizontal [place]:204 degT-40 [place]:-83 | | | degT [place]:95 degT [place]:39 degS-T Horizontal [place]:79 | | | degS-T [place]:49 degSeverity:- ABNORMAL ECG -INTERP:SINUS | | | RHYTHMINTERP:CONSIDER RIGHT VENTRICULAR HYPERTROPHYINTERP:PROBABLE | | | INFERIOR INFARCT, AGE INDETERMINATEINTERP:BORDERLINE ST ELEVATION, | | | ANTERIOR LEADSElectronically signed by: ELIZABETH CAMPBELL 06-12-2018 | | | 07:37:14 | | |QRS [place]:129 deg | | |QRS [place]:-53 deg | | |I-40 [place]:77 deg | | |I-40 [place]:-44 deg | | |T-40 [place]:204 deg | | |T-40 [place]:-83 deg | | |T Horizontal [place]:95 deg | | |T [place]:39 deg | | |S-T Horizontal [place]:79 deg | | |S-T [place]:49 deg | | |Severity:- ABNORMAL ECG - [...] + + | SARITHA REY | [address] | [place] [address] | [phone] | + + + + + CBC [...] [facility] | | | | Performed by [facility] [address] | | SACRED | | | | [address] [place] | | HEART | | | | [address] | | MEDICAL | | | | [...] + | [facility] SACRED | [address] | [place] [address] | | | [facility] | [...] | | MEDICAL | | | | [facility] [address], | | CENTER | | | | [place] [address] | | LABORATORY | | | | [...] + + | YARELISDEMIKarly BRENDAN | [address] | [place] [address] | | | [facility] | | | | | LABORATORY [...] | | | POC | Performed by [facility] [address] | | SACRED | | | | [address], [place] | | HEART | | | | [address] | | MEDICAL | | | | [...] [address] | [place] [address] | | | [facility]ICAL [facility]ENTER | [...] | [facility] | | | POC | [facility] [address], | | SACRED | | | | [place] [address] | | HEART | | | |Performed by [facility] [address], [place] [address] | | MEDICAL | | | | [...] + + | AMILCAR CARDONA | [address] | [place] [address] | | | [facility] | | | | | RIVERA [...] | | | POC | Performed by [facility] [address] | | SACRED | | | | [address] [place] | | HEART | | | | [address] | | MEDICAL | | | | [...] [address] | [place] [address] | | | [facility] | | | | | LABORATORY [...] | | | POC | Performed by [facility] [address] | | SACRFAUSTO | | | | [place] | | HEART | | | | [address] | | MEDICAL | | | | [...] + + | AMILCAR CARDONA | [address] | [place] [address] | | | [facility] | | | | | RIVERA [...] [facility] | | | | Performed by [facility] [address] | mmol/L | SACRED | | | | [address] [place] | | HEART | | | | [address] | | MEDICAL | | | | [...] [address] | [place] [address] | | | [facility] | | | | [...] PROVIDEDEMIE | | | | Performed by [facility] [address] | | SACRED | | | | [address] [place], [place] | | HEART | | | | [address] | | MEDICAL | | | | [...] + + | AMILCAR CARDONA | [address] | [place] [address] | | | [facility] | | | | | RIVERA [...] 7.35 (L) | 7.37 - 7.47 | YARELISN CE [...] CE | | | ARTERIAL | by [facility] [address], | | SACRED | | | | [place] [address] | | HEART | | | |Performed by [facility] [address], [place] [address] | | MEDICAL | | | | [...] + | AMILCAR CARDONA | [address] | [place] [address] | | | [facility] | | | | | LABORATORY [...] | | | POC | Performed by [facility] [address] | | SACRED | | | | [address], [place] | | HEART | | | | [address] | | MEDICAL | | | | [...] | [address] | [place] [address] | | | HEART [facility] | | | | | LABORATORY [...] | | | POC | Performed by [facility] [address] | | SACRED | | | | [address] [place] | | HEART | | | | [address] | | MEDICAL | | | | [...] + + | AMILCAR CARDONA | [address] | [place] [address] | | | [facility] | | | | | LABORATORY [...] | [facility] | | | | by [facility] [address], | mmol/L | SACRED | | | | [place] [address] | | HEART | | | |Performed by [facility] [address], [place] [address] | | MEDICAL | | | | [...] | [facility] | [address] | [place] [address] | | | [facility] | | | | | LABORATORY [...] | | | POC | Performed by [facility] [address] | | SACRED | | | | [address], [place] | | HEART | | | | [address] | | MEDICAL | | | | [...] + + | AMILCAR CARDONA | [address] | [place] [address] | | | [facility] | | | | | RIVERA [...] | TRACEMASTER | | Duration:180 msP [place]:-10 degP [place]:68 degQ Onset:512 | | | msQRSD Interval:110 msQT Interval:444 msQTcB:486 msQTcF:472 msQRS | | | Horizontal [place]:112 degQRS [place]:-63 degI-40 [place]:100 | | | degI-40 [place]:-58 degT-40 [place]: degT-40 [place]:160 | | | degT Horizontal [place]:104 degT [place]:-11 degS-T Horizontal | | | [place]:104 degS-T [place]:32 degSeverity:- ABNORMAL ECG -INTERP:SINUS | | | RHYTHMINTERP:PROBABLE LEFT ATRIAL ABNORMALITYINTERP:NONSPECIFIC IVCD | | | WITH LADINTERP:INFERIOR INFARCT, AGE INDETERMINATEINTERP:LATERAL | | | INFARCT, OLDElectronically signed by: ELIZABETH CAMPBELL 06-12-2018 | | | 11:18:02 | | |QRS [place]:112 deg | | |QRS [place]:-63 deg | | |I-40 [place]:100 deg | | |I-40 [place]:-58 deg | | |T-40 [place]: deg | | |T-40 [place]:160 deg | | |T Horizontal [place]:104 deg | | |T [place]:-11 deg | | |S-T [place]:104 deg | | |S-T [place]:32 deg | | |Severity:- ABNORMAL ECG - [...] + + | SARITHA REY | [address] | [place] [address] | [phone] | + + + + + PTT [...] | | | | | seconds.Performed by [facility] | | | | | | [address], | | | | | | [place] [address] | | | | + + + + + + + + | Specimen | + + | Blood specimen | | (specimen) | + + + + + + + | Performing | Address | City/State/Zipcode | Phone Number | | Organization | | | | + + + + + | AMILCAR CARDONA | [address] | [place] [address] | | | [facility] | | | | | LABORATORY [...] | | | | to 3.5Performed by [facility] | | LABORATORY | | | | [address] [place], | | [place] | | | | [place] [address] | | | | + + + + + + + + | Specimen | + + | Blood specimen | | (specimen) | + + + + + + + | Performing | Address | City/State/Zipcode | Phone Number | | Organization | | | | + + + + + | AMILCAR CARDONA | [address] | [place] [address] | | | [facility] | | | | | LABORATORY [...] | | MEDICAL | | | | [facility] [address], | | CENTER | | | | [place] [address] | | LABORATORY | | | | [...] + | YARELISDEMIKarly BRENDAN | [address] | [place] [address] | | | [facility] | | | | | LABORATORY [...] [facility] | | | | Performed by [facility] [address] | | SACRED | | [...] + | [facility]ED | [address] | [place] [address] | | | [facility] | [...] [facility] | | | Arterial | by [facility] [address], | mmol/L | SACRED | | | | [place] [address] | | HEART | | | |Performed by [facility] [address], [place] [address] | | MEDICAL | | | | [...] + + | YARELISDEMIKarly CARDONA | [address] | [place] [address] | | | [facility] | | | | | RIVERA [...] E | | | Normalized | by [facility] [address], | mg/dL | SACRED | | | | [place] [address] | | HEART | | | |Performed by [facility] [address], [place] [address] | | MEDICAL | | | | [...] + + | AMILCAR CARDONA | [address] | [place] [address] | | | [facility] | | | | | RIVERA [...] [facility]ENCE | | | | Performed by [facility] [address] | | SACRED | | | | [address] [place] | | HEART | | | | [address] | | MEDICAL | | | | [...] + + | AMILCAR SACRFAUSTO | [address] | [place] [address] | | | [facility] | | | | | LABORATORY [...] | 7.39 | 7.37 - 7.47 | NOHEMY CE [...] +--------- ----+ + | Comment | [id number] | | PROVIDEN CE | | | [...] CE | | | ARTERIAL | by [facility] [address], | | SACRED | | | | [place] [address] | | HEART | | | |Performed by [facility] [address], [place] [address] | | MEDICAL | | | | [...] + + | AMILCAR CARDONA | [address] | [place] [address] | | | HEART [facility] | | | | | LABORATORY [...] Procedure Note | + + | Tim, Presley Results In - 06/11/2018 5:27 PM PDT [...] | | | Arterial | Performed by [facility] [address] | mmol/L | SACRED | | | | [address], [place] | | HEART | | | | [address] | | MEDICAL | | | | [...] [address] | [place] [address] | | | HEART [facility] | | | | | LABORATORY [...] | 7.37 | 7.37 - 7.47 | NOHEMY CE [...] (H) | 65 - 80 mmHg | YARELISN CE | | | Arterial [...] (L) | 15.0 - 23.0 % | YARELISN [...] 142Comment: Performed | 135 - 145 | YARELISN CE | | | | by [facility] [address], | mmol/L | SACRED | | | | [place] [address] | | HEART | | | |Performed by [facility] [address], [place] [address] | | MEDICAL | | | | [...] + + | AMILCAR CARDONA | [address] | [place] [address] | | | [facility] | | | | | RIVERA [...] | | | | | seconds.Performed by [facility] | | | | | | [address], | | | | | | [place] [address] | | | | + + + + + + + + | Specimen | + + | Blood specimen | | (specimen) | + + + + + + + | Performing | Address | City/State/Zipcode | Phone Number | | Organization | | | | + + + + + | AMILCAR CARDONA | [address] | [place] [address] | | | [facility] | | | | | LABORATORY [...] | | | Arterial | Performed by [facility] [address] | mmol/L | SACRED | | | | [address], [place] | | HEART | | | [...] + | [facility] | [address] | [place] [address] | | | [facility] | [...] | 7.37 | 7.37 - 7.47 | NOHEMY CE [...] (H) | 65 - 80 mmHg | YARELISN CE | | | Arterial [...] PROVIDEN CE | | | | by [facility] [address], | mmol/L | SACRED | | | | [place] [address] | | HEART | | | |Performed by [facility] [address], [place] [address] | | MEDICAL | | | | [...] + + | AMILCAR CARDONA | [address] | [place] [address] | | | [facility] | | | | | LABORATORY [...] [facility] | | | Arterial | by [place] [address], | mmol/L | SACRED | | | | [place] [address] | | HEART | | | |Performed by [facility] [address], [place] [address] | | MEDICAL | | | | [...] + + | AMILCAR CARDONA | [address] | [place] [address] | | | [facility] | | | | | LABORATORY [...] [facility] | | | | Performed by [facility] [address] | | SACRED | | | | [address] [place] | | HEART | | | | [address] | | MEDICAL | | | | [...] [address] | [place] | | | [facility] | | | | [...] [facility] | | | Arterial | by [facility] [address], | mmol/L | SACRED | | | | [place] | | HEART | | | |Performed by [facility] [address], [place] | | MEDICAL | | | | [...] + + | AMILCAR CARDONA | [address] | [place] [address] | | | HEART [facility] | | | | | LABORATORY ALTAGRACIA [...] [facility] | | | | Performed by [facility] [address] | | SACRED | | | | [address] [place] | | HEART | | | | [address] | | MEDICAL | | | | [...] + | AMILCAR CARDONA | [address] | [place] [address] | | | [facility] | | | | | LABORATORY ALTAGRACIA | | | | + + + + + ECHO Transesophageal (CHIQUITA) (06/11/2018 1:05 PM PDT) + + | Specimen | + + | | + + + + -----+ | Narrative | Performed At | + + -----+ | | [facility] | | Transesophageal Echocardiography Report (CHIQUITA) Demographics Patient | | | Name [facility] Room Number 270 | | | ZIYAD Patient Number [id number] Date of | | | Study 06/11/2018 Visit Number [id number] Accession | | | [id number] Interpreting Sharad Richard | | | MD Number Physician Date | | | of 1955 Referring Physician ELEANOR BERMUDEZ | | | VERONICA Age 62 year(s) 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 Visible portions of ascending aorta | | [...] Report | | (CHIQUITA) Demographics Patient Name [facility] Room Number 270 | | ZIYAD Patient Number [id number] Date of Study 06/11/2018 Visit | | Number [id number] Interpreting Sharad | | MD Jose Manuel Number Physician Date of 1955 | | Referring Physician ELEANOR MARTIN Age 62 year(s) | | Gender Studies Professor Sanjeev Bradshaw, | | MD Sharad Richard MD Gender | | Female Nurse 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 Bradshaw.Diagnostic exam | | performed by Dr. Bradshaw (Pre-CPB), Dr. Richard (Post-CPB).Exam interpreted by | | oJse Manuel.All pertinent intraoperative findings discussed with Dr. [...] function. Trace TR.7. Pulmonic valve normal Trace OH.8. Visible portions | | of ascending aorta and arch normal. 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 Pulmonary artery [id number]. Normal pericardium. No pericardial fluid. No pleural [...] | toestimate RV pressures. TAPSE measured with [employer] technology was 21.9mm. FAC=45%.POSTOP: | | No [...] [facility] | | | Arterial | by [facility] [address], | mmol/L | SACRED | | | | [place] | | HEART | | | |Performed by [facility] [address], [place] | | MEDICAL | | | [...] + + | AMILCAR SACRFAUSTO | [address] | [place] | | | HEART [facility] | | | | | LABORATORY [...] | | | Normalized | Performed by [facility] [address] | mg/dL | SACRED | | | | [address], [place] | | HEART | | | | [address] | | MEDICAL | | | | [...] CARDONA | [address] | [place] [address] | | | [facility] | [...] [facility] | | | Arterial | by [facility] [address], | mmol/L | SACRED | | | | [place] [address] | | HEART | | | |Performed by [facility] [address], [place] [address] | | MEDICAL | | | | [...] + + | YARELISDEMIKarly CARDONA | [address] | [place] [address] | | | [facility] | | | | | LABORATORY [...] [facility] | | | | Performed by [facility] [address] | mmol/L | SACRED | | | | [address] [place] | | HEART | | | | [address] | | MEDICAL | | | | [...] + + | YARELISDEMIKarly CARDONA | [address] | [place] [address] | | | [facility] | | | | | LABORATORY [...] | | Screen | | | LAB [place] | | | | | | [facility] | | | | | | [facility] | | | | | | [facility] | | | | | | [facility] | | + + + + + + | ABO | O | | REFERENCE | | | | | | LAB [place] | | | | | | [facility] | | | | | | [facility] | | | | | | [facility] | | | | | | [facility] | | + + + + + + | Rh Type | Negative | | REFERENCE | | | | | | LAB [place] | | | | | | [facility] [...] + + + | Specimen Expiration Date: [id number] | REFERENCE LAB | | | [place] [facility] | | | [facility] | | | [facility] | + + + + + + + + | Performing | Address | City/State/Zipcode | Phone Number | | Organization | | | | + + + + + | REFERENCE LAB | [address] | [place] [address] | [phone] | | [place] [facility] | | | | | [facility] [...] | | | POC | Performed by [facility] [address] | | SACRED | | | | [address] [place], [place] | | HEART | | | | [address] | | MEDICAL | | | | [...] + | [facility] | [address] | [place] [address] | | | [facility] | | | | [...] CENTER | | | | 3.5Performed by [facility] [address] | | LABORATORY | | | | [address] [place] | | [place] | | | | [address] | | | | + + + + + + + + | Specimen | + + | Blood specimen | | (specimen) | + + + + + + + | Performing | Address | City/State/Zipcode | Phone Number | | Organization | | | | + + + + + | [facility] | [address] | [place] [address] | | | [facility] | [...] [facility] | | | | Performed by [facility] [address] | | SACRED | | | | [address] [place] | | HEART | | | | [address] | | MEDICAL | | | | [...] + | AMILCAR CARDONA | [address] | [place] [address] | | | [facility] | | | | | LABORATORY [...] | | MEDICAL | | | | [facility] [address], | | CENTER | | | | [place] [address] | | LABORATORY | | | | [...] + + | AMILCAR CARDONA | [address] | [place] [address] | | | HEART [facility] | | | | | LABORATORY [...] | | | | | seconds.Performed by [facility] | | | | | | [address], | | | | | | [place] [address] | | | | + + + + + + + + | Specimen | + + | Blood specimen | | (specimen) | + + + + + + + | Performing | Address | City/State/Zipcode | Phone Number | | Organization | | | | + + + + + | AMILCAR CARDONA | [address] | [place] [address] | | | [facility] | | | | | LABORATORY [...] [place] | | | Source | by [facility] [address], | | SACRED | | | | [place] [address] | | HEART | | | |Performed by [facility] [address], [place] [address] | | MEDICAL | | | | [...] + + | AM[facility]ARD[facility] | [address] | [place] [address] | | | [facility] | | | | | LABORATORY [...] - 1.030 | [place] | | | [place] | | | SACRED | | | [...] | | | SOURCE | Performed by [facility] [address] | | SACRED | | | | [address] [place] | | HEART | | | | [id number] | | MEDICAL | | | | [...] + + | [facility] | [address] | [place] [address] | | | [facility] | | | | | LABORATORY [...] | | | POC | Performed by [facility] [address] | | SACRED | | | | [address] [place], [place] | | HEART | | | | [id number] | | MEDICAL | | | | [...] SACRED | [address] | [place] [address] | | | [facility] | | | | | LABORATORY [...] | | | | | seconds.Performed by [facility] | | | | | | [address], | | | | | | [place] [address] | | | | + + + + + + + + | Specimen | + + | Blood specimen | | (specimen) | + + + + + + + | Performing | Address | City/State/Zipcode | Phone Number | | Organization | | | | + + + + + | [facility] | [address] | [place] [address] | | | [facility] | | | | [...] | | MEDICAL | | | | [facility] [address], | | CENTER | | | | [place] [address] | | LABORATORY | | | | [...] + | [facility] | [address] | [place] [address] | | | [facility] | | | | | LABORATORY ALTAGRACIA | | | | + + + + + Oliveime INR (06/10/2018 5:22 PM PDT) + + [...] CENTER | | | | 3.5Performed by [facility] [address] | | LABORATORY | | | | [address] [place] | | [place] | | | | [id number] | | | | + + + + + + + + | Specimen | + + | Blood specimen | | (specimen) | + + + + + + + | Performing | Address | City/State/Zipcode | Phone Number | | Organization | | | | + + + + + | AMILCAR CRADONA | [address] | [place] [address] | | | [facility] | | | | | RIVERA [...] | | | POC | Performed by [facility] [address] | [address] | | | | [address], [place] | | HEART | | | | [address] | | MEDICAL | | | | [...] [address] | [place] [address] | | | [facility] | [...] test | | | | | | ([id number]).Performed At: | | | | | | [facility] [id number] | | | | | | [facility] [address] | | | | | | [place], [place] | | | | | | [phone] Daniel | | | | | | Riya MOJICA Ph:[phone] | | | | + + + + + + + + | Specimen | + + | Blood specimen | | (specimen) | + + + + + + + | Performing | Address | City/State/Zipcode | Phone Number | | Organization | | | | + + + + + | AMILCAR CARDONA | [address] | [place] [address] | | | [facility] | | | | | LABORATORY [...] | | | | | seconds.Performed by [facility] | | | | | | [address], | | | | | | [place] [address] | | | | + + + + + + + + | Specimen | + + | Blood specimen | | (specimen) | + + + + + + + | Performing | Address | City/State/Zipcode | Phone Number | | Organization | | | | + + + + + | AMILCAR CARDONA | [address] | [place] [address] | | | [facility] | | | | | RIVERA [...] | TRACEMASTER | | Duration:152 msP [place]:32 degP [place]:62 degQ Onset:512 | | | msQRSD Interval:110 msQT Interval:416 msQTcB:453 msQTcF:440 msQRS | | | [place]:199 degQRS [place]:-83 degI-40 [place]:77 degI-40 | | | [place]:-74 degT-40 [place]:242 degT-40 [place]:216 | | | degT [place]:84 degT [place]:69 degS-T [place]:97 | | | degS-T [place]:107 degSeverity:- ABNORMAL ECG -INTERP:SINUS | | | RHYTHMINTERP:NONSPECIFIC IVCD WITH LADINTERP:INFERIOR INFARCT, | | | OLDElectronically signed by: ELIZABETH CAMPBELL 06-12-2018 11:24:19 | | |QTcB:453 ms | | |QTcF:440 ms | | |QRS [place]:199 deg | | |QRS [place]:-83 deg | | |I-40 [place]:77 deg | | |I-40 [place]:-74 deg | | |T-40 [place]:242 deg | | |T-40 [place]:216 deg | | |T [place]:84 deg | | |T [place]:69 deg | | |S-T [place]:97 deg | | |S-T [place]:107 deg | | |Severity:- ABNORMAL ECG - [...] + + | W[facility] TRACEMASTER | [address] | [place] [address] | [phone] | + + + + + Pulmonary [...] | | | | | seconds.Performed by [facility] | | | | | | [address], | | | | | | [place] [address] | | | | + + + + + + + + | Specimen | + + | Blood specimen | | (specimen) | + + + + + + + | Performing | Address | City/State/Zipcode | Phone Number | | Organization | | | | + + + + + | AMILCAR CARDONA | [address] | [place] [address] | | | [facility] | | | | [...] | | | | | | The [facility] recommends | | | | | | that a positive HCV | | | | | | antibody result be | | | | | | followed up with a HCV | | | | | | Nucleic Acid | | | | | | Amplification test | | | | | | ([id number]).Performed At: | | | | | | [facility] [id number] | | | | | | [place] [address] | | | | | | [place], [place] | | | | | | [phone] Daniel | | | | | | L Ph:[phone] | | | | + + + [...] BRENDAN | [address] | [place] [address] | | | [facility] | | | | | LABORATORY [...] | recommends A1C values of | | SACRFAUSTO | | | | less than 7% [...] | | | | | formula.Performed by [facility] | | | | | | [address], | | | | | | [place] [address] | | | | + + + + + + + + | Specimen | + + | Blood specimen | | (specimen) | + + + + + + + | Performing | Address | City/State/Zipcode | Phone Number | | Organization | | | | + + + + + | AMILCAR CARDONA | [address] | [place] [address] | | | [facility] | | | | | LABORATORY [...] | | | | | | LAB [place] | | | | | | [facility] | | | | | | [facility] | | | | | | [facility] | | | | | | CENTER | | + + + + + + | Rh Type | Negative | | REFERENCE | | | | | | LAB [place] | | | | | | [facility] | | | | | | [facility] | | | | | | [facility] | | | | | | C[facility] | | + + + + + + + + | Specimen | + + | | + + + + + | Narrative | Performed At | + + + | Specimen Expiration Date: [id number] | [facility] | | | [place] [facility] | | | [facility] | | | [facility] | + + + + + + + + | Performing | Address | City/State/Zipcode | Phone Number | | Organization | | | | + + + + + | [facility] | [address] | [place] | [phone] | | [place] [facility] | | | | | [facility] [...] | | Screen | | | LAB [place] | | | | | | [facility] | | | | | | [facility] | | | | | | BLO[facility] | | | | | | CENTER | | + + + + + + + + | Specimen | + + | | + + + + + | Narrative | Performed At | + + + | Specimen Expiration Date: [id number] | [facility] | | | [place] [facility] | | | [facility] | | | [facility] | + + + + + + + + | Performing | Address | City/State/Zipcode | Phone Number | | Organization | | | | + + + + + | [facility] | [address] | [place] [address] | [phone] | | [place] [facility] | | | | | [facility] [...] | | | | | | LAB [place] | | | | | | [facility] | | | | | | [facility] | | | | | | BLOOD | | | | | | CENTER | | + + + + + + + + | Specimen | + + | | + + + + + | Narrative | Performed At | + + + | Specimen Expiration Date: [id number] | [facility] | | | [place] [facility] | | | [facility] | | | [facility] | + + + + + + + + | Performing | Address | City/State/Zipcode | Phone Number | | Organization | | | | + + + + + | [facility] | [address] | [place] [address] | [phone] | | [place] [facility] | | | | | [facility] [...] | | | | | | LAB [place] | | | | | | [facility] | | | | | | [facility] | | | | | | [facility] | | | | | | CENTER | | + + + + + + | Rh Type | Negative | | REFERENCE | | | | | | LAB [place] | | | | | | [facility] | | | | | | [facility] | | | | | | B[facility]OD | | | | | | CENTER | | + + + + + + | Antibody | Positive | | REFERENCE | | | Screen | | | LAB [place] | | | | | | [facility] [...] + + + | Specimen Expiration Date: [id number] | [facility] | | | [place] [facility] | | | [facility] | | | [facility] | + + + + + + + + | Performing | Address | City/State/Zipcode | Phone Number | | Organization | | | | + + + + + | [facility] | [address] | [place] [address] | [phone] | | [place] | | | | | [facility] [...] | | | | | seconds.Performed by [facility] | | | | | | [address], | | | | | | [place] [address] | | | | + + + + + + + + | Specimen | + + | Blood specimen | | (specimen) | + + + + + + + | Performing | Address | City/State/Zipcode | Phone Number | | Organization | | | | + + + + + | AMILCAR CARDONA | [address] | [place] [address] | | | [facility] | | | | | LABORATORY [...] | proximal 40% LAD, 95% ostial septal filling machine tender, 70% mid and distal LAD, [...] LAD, 95% | | | ostial septal filling machine tender, 70% mid and distal LAD, [...] + + | Performing | Address | City/State/[facility] | Phone Number | | Organization [...] lateral castillo from | | | prior [place]. 4. Mild destinee infarct ischemia. LARGE SEVERE inferior and | | | Lateral [place]. 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 | | Duration:176 msP [place]:19 degP [place]:70 degQ Onset:512 | | | msQRSD Interval:110 msQT Interval:444 msQTcB:480 msQTcF:467 msQRS | | | [place]:157 degQRS [place]:-77 degI-40 [place]:75 degI-40 | | | [place]:-59 degT-40 [place]:240 degT-40 [place]:267 | | | degT [place]:91 degT [place]:68 degS-T [place]:98 | | | degS-T [place]:103 degSeverity:- ABNORMAL ECG -INTERP:SINUS | | | RHYTHMINTERP:NONSPECIFIC IVCD WITH LADINTERP:INFERIOR INFARCT, | | | OLDElectronically signed by: ELIZABETH CAMPBELL 06-12-2018 11:25:24 | | |QTcB:480 ms | | |QTcF:467 ms | | |QRS [place]:157 deg | | |QRS [place]:-77 deg | | |I-40 [place]:75 deg | | |I-40 [place]:-59 deg | | |T-40 [place]:240 deg | | |T-40 [place]:267 deg | | |T [place]:91 deg | | |T [place]:68 deg | | |S-T [place]:98 deg | | |S-T [place]:103 deg | | |Severity:- ABNORMAL ECG - [...] + + + + + | FLOR[place] CANDIDO | [address] | [place] [address] | [phone] | + + + + + Magnesium (06/09/2018 3:07 AM PDT) + + + +--------- ----+ + | Component | Value | Ref Range | Performe d | Pathologist | | | | | At | Signature | + + + +--------- ----+ + | Magnesium | 2.1Comment: Performed | 1.7 - 2.4 mg/dL | Y[facility]ELISN CE | | | | by [facility] [address], | | SACRED | | | | [place] [address] | | HEART | | | |Performed by [facility] [address], [place] [address] | | MEDICAL | | | | [...] SACRED | [address] | [place] [address] | | | [facility] | | | | | LABORATORY [...] CENTER | | | | | | [place] | | | | | | [place] | | + + + +------- ------+ [...] ENCE | | | Basophils | by [facility] [address], | K/uL | SACRED | | | | [place] [address] | | HEART | | | |Performed by [facility] [address], [place] [address] | | MEDICA L | | | | | | CENTER | | | | | | [place] | | | | | | [place] | | + + + +------- ------+ + + + | Specimen | + + | Blood specimen | | (specimen) | + + + + + + + | Performing | Address | City/State/Zipcode | Phone Number | | Organization | | | | + + + + + | AMILCAR CARDONA | [address] | [place] [address] | | | [facility] | | | | | RIVERA [...] | | MEDICAL | | | | [facility] [address], | | [place] | | | | [place] [address] | | LABORATORY | | | | [...] CARDONA | [address] | [place] [address] | | | [facility] | | | | | LABORATORY [...] MEDICAL | | | | PDT by 0.070 - | | CENTER | | [...] | | | | | TroponinPerformed by [facility] | | | | | | [address], | | | | | | [place] [address] | | | | + + + + + + + + | Specimen | + + | Blood specimen | | (specimen) | + + + + + + + | Performing | Address | City/State/Zipcode | Phone Number | | Organization | | | | + + + + + | AMILCAR CARDONA | [address] | [place] [address] | | | [facility] | | | | | [facility] | | | | + + + + + ECG 12 lead (06/08/2018 4:30 AM PDT) + + | Specimen | + + | | + + + + + | Narrative | Performed At | + + + | HEART RATE:94 | [facility] | | bpmRR Interval:638 msAtrial Rate:95 msP-R Interval:148 msP | TRACEMASTER | | Duration:200 msP [place]:19 degP [place]:58 degQ Onset:512 | | | msQRSD Interval:110 msQT Interval:404 msQTcB:506 msQTcF:469 msQRS | | | [place]:184 degQRS [place]:265 degI-40 [place]:78 degI-40 | | | [place]:269 degT-40 [place]:240 degT-40 [place]:259 | | | degT [place]:77 degT [place]:63 degS-T [place]:83 | | | degS-T [place]:99 degSeverity:- ABNORMAL ECG -INTERP:SINUS | | | RHYTHMINTERP:NONSPECIFIC IVCD WITH LADINTERP:INFERIOR INFARCT, | | | OLDElectronically signed by: ELIZABETH CAMPBELL 06-12-2018 11:24:43 | | |QTcB:506 ms | | |QTcF:469 ms | | |QRS [place]:184 deg | | |QRS [place]:265 deg | | |I-40 [place]:78 deg | | |I-40 [place]:269 deg | | |T-40 [place]:240 deg | | |T-40 [place]:259 deg | | |T [place]:77 deg | | |T [place]:63 deg | | |S-T [place]:83 deg | | |S-T [place]:99 deg | | |Severity:- ABNORMAL ECG - [...] [address] | [place] [address] | [phone] | + + + + + Troponin [...] by | | | | | | [facility] [address], | | | | | | [place] [address] | | | | + + + + + + + + | Specimen | + + | Blood specimen | | (specimen) | + + + + + + + | Performing | Address | City/State/Zipcode | Phone Number | | Organization | | | | + + + + + | AMILCAR CARDONA | [address] | [place] [address] | | | [facility] | | | | | RIVERA [...] NOHEMY CE | | | | by [facility] [address], | | SACRED | | | | [place] [address] | | HEART | | | |Performed by [facility] [address], [place] [address] | | MEDICAL | | | | [...] + + | AMILCAR CARDONA | [address] | [place] [address] | | | [facility] | | | | | LABORATORY [...] | | MEDICAL | | | | [facility] [address], | | CENTER | | | | [place] [address] | | LABORATORY | | | | [...] + + | AMILCAR CARDONA | [address] | [place] [address] | | | [facility] | | | | | LABORATORY [...] | | MATTI Herrera at [address] [place]. | | MEDICAL | | | | [...] | | | | | TroponinPerformed by [facility] | | | | | | [address], | | | | | | [place] [address] | | | | + + + + + + + + | Specimen | + + | Blood specimen | | (specimen) | + + + + + + + | Performing | Address | City/State/Zipcode | Phone Number | | Organization | | | | + + + + + | [facility] | [address] | [place] [address] | | | [facility] | | | | | LABORATORY [...] by | | | | | | [facility] [address], | | | | | | [place] [address] | | | | + + + + + + + + | Specimen | + + | Blood specimen | | (specimen) | + + + + + + + | Performing | Address | City/State/Zipcode | Phone Number | | Organization | | | | + + + + + | AMILCAR CARDONA | [address] | [place] [address] | | | [facility] | | | | | LABORATORY [...] [facility] | | | | Performed by [facility] [address] | | SACRED | | | | [address] [place], [place] | | HEART | | | | [address] | | MEDICAL | | | | [...] + + | AMILCAR CARDONA | [address] | [place] [address] | | | [facility] | | | | | LABORATORY [...] | | | | | battery.Performed by [facility] | | | | | | [address], | | | | | | [place] [address] | | | | + + + + + + + + | Specimen | + + | Urine specimen | | (specimen) | + + + + + + + | Performing | Address | City/State/Zipcode | Phone Number | | Organization | | | | + + + + + | AMILCAR CARDONA | [address] | [place] [address] | | | [facility] | | | | | RIVERA [...] | | | | | [place].Performed by [facility] [address] | | | | | | [address] [place] | | | | | | [address] | | | | + + + + + + + + | Specimen | + + | Blood specimen | | (specimen) | + + + + + + + | Performing | Address | City/State/Zipcode | Phone Number | | Organization | | | | + + + + + | AMILCAR CARDONA | [address] | [place] [address] | | | [facility] | | | | | RIVERA [...] PROVIDENC E | | | SERUM | [facility] [address], | | SACRED | | | | [place] [address] | | HEART | | | |Performed by [facility] [address], [place] [address] | | MEDICAL | | | | [...] + | YARELISDEMIKarly CARDONA | [address] | [place] [address] | | | [facility] | | | | | LABORATORY [...] by | 11 - 82 U/L | PROVIDEDEMIE | | | | [facility] [address], | | SACRED | | | | [place] | | HEART | | | |Performed by [facility] [address], [place] | | MEDICAL | | | [...] [facility]CRED | [address] | [place], [place] | | | [facility] | | | | | LABORATORY [...] | | MEDICAL | | | | [facility] [address], | | CENTER | | | | [place] [address] | | LABORATORY | | | | [...] + + | [facility] | [address] | [place] [address] | | | [facility] | | | | | LABORATORY [...] ENCE | | | Basophils | by [facility] [address], | K/uL | SACRED | | | | [place] | | HEART | | | |Performed by [facility] [address], [place] | | MEDICA L | | | [...] + + | [facility] | [address] | [place], [place] | | | [facility] [...] | [facility] | | | | by [facility] [address], | | SACRED | | | | [place] [address] | | HEART | | | |Performed by [facility] [address], [place] [address] | | MEDICAL | | | | [...] + + | AMILCAR CARDONA | [address] | [place] [address] | | | [facility] | | | | | RIVERA [...] U/L | [facility] | | | | [facility] [address], | | SACRED | | | | [place] [address] | | HEART | | | |Performed by [facility] [address], [place] [address] | | MEDICAL | | | | [...] + + | [facility] | [address] | [place] [address] | | | [facility] | | | | | LABORATORY [...] - 1.030 | [facility] | | | [place] | | | SACRED | | | [...] | | | SOURCE | Performed by [facility] [address] | | SACRED | | | | [address] [place] | | HEART | | | | [address] | | MEDICAL | | | | [...] + + | YARELISDEMIKarly CARDONA | [address] | [place] [address] | | | [facility] | | | | | RIVERA [...] of unspecified type of | | vessel, [place] or graft | + + documented in [...] | | | | First dose on Fri06/11/18 at 2100 | | PM PDT | [...] fentaNYL (PF) injection ONCE | Given | 06/09/20 | 50 mcg | | | | PRN, Starting karly 06/09/18 at 1247, | | 18 12:47 | | | | | Intra-op | | PM PDT | | | | + +-------+ +--------+---+---+ +-------+ +--------+---+---+ | Given | 06/09/20 | 50 mcg | | | | | 18 12:31 | | | | | | PM [...] | heparin 1,000 units/mL | Given | 06/09/20 | 5,000 | | | | injection ONCE PRN, Starting Tue | | 18 12:47 | Units | | | | 06/09/18 at 1247, Intra-op | | PM PDT | | | [...] iohexol (OMNIPAQUE 350) 350 | Given | 06/09/20 | 120 mLs | | | | mg/mL injection ONCE PRN, | | 18 1:05 | | | | | Starting 06/09/18 at 1305, | | PM PDT | | | | | Intra-op | | | | | | + +-------+ +---------+---+---+ +---+---+ | | | +---+---+ + +-------+ +-------+---+---+ | lidocaine 1% injection ONCE | Given | 06/09/20 | 2 mLs | | | | PRN, Starting 06/09/18 at 1243, | | 18 12:43 | | | | | Intra-op | | PM PDT | | | [...] midazolam (VERSED) 1 mg/mL | Given | 06/09/20 | 1 mg | | | | injection ONCE PRN, Starting Tue | | 18 1:01 | | | | | 06/09/18 at 1232, Intra-op | | PM PDT | | | | + +-------+ +------+---+---+ +-------+ +------+---+---+ | Given | 06/09/20 | 1 mg | | | | | 18 12:51 | | | | | | PM PDT | | | | +-------+ +------+---+---+ | Given | 06/09/20 | 1 mg | | | | | 18 12:47 | | | | | | PM PDT | | | | +-------+ +------+---+---+ +---+---+ | | | +---+---+ + +-------+ +---------+---+---+ | nitroglycerin 100 mcg/mL | Given | 06/09/20 | 200 mcg | | | | syringe ONCE PRN, Starting Tue | | 18 12:43 | | | | | 06/09/18 at 1243, Intra-op | | PM PDT | | | [...] | | +-------+ +-------+---+---+ | Given | 09/09/20 | 15 mg | | | | [...] Starting [facility] 06/11/18 | | AM PDT | | [...] verapamil injection ONCE PRN, | Given | 06/09/20 | 2.5 mg | | | | Starting 06/09/18 at 1243, | | 18 12:43 | | | | | Intra-op | | PM PDT | | | [...]
--- OUTSIDE RECORDS SUMMARY | ~2019-08-21 | XMS | Encounter Summary ---
Demographics + + + | Address | [address] | | | [place] [address] | + + + | Home Phone [...] + | Author | [facility] | | | and Ankitana | + + + | Organization | [facility] | | | and [...] Team Providers + +------+ + | Care Kitchen Work Supervisor Name | Role | Phone | [...] | SR | | | | | [phone] | | | +--------+ + + + [...] | | | | | [place] [address] | | | | | | [phone] | | | | | | | | +--------+---------+ + + + | 10/28/ | Office | Cardiology | Carol, | | | 2020 | Visit | | SALVATORE Moreno [address] | | | | | | [place], | | | | | | [place] [address] | | | | | | [phone] | | | | | | | | +--------+---------+ + + + documented as of this encounter Visit Diagnoses Not on filedocumented in this encounter
--- OUTSIDE RECORDS SUMMARY | ~2019-08-21 | XMS | Encounter Summary ---
Demographics + + + | Address | [address] | | | [place] [address] | + + + | Home Phone [...] + | Author | [facility] | | | and Ankitana | + + + | Organization | [facility] | | | and [...] Team Providers + +------+ + | Care Sales Lead Name | Role | Phone | + [...] | | CARDIOLOGY [address] | Tiffanie QUALITY ANALYST/TECHNICAL WRITER [address] | | | | | [place], | [place], | | | | | [place] [address] | [place] [address] | | | | | [phone] | [phone] | | | | | | | [...] | | | | | [place] [address] | | | | | | [phone] | | | | | | | | +--------+---------+ + + + | 10/28/ | Office | Cardiology | Carol, | | | 2019 | Visit | | SALVATORE Moreno [address] | | | | | | [place], | | | | | | [place] [address] | | | | | | [phone] | | | | | | | [...]
--- OUTSIDE RECORDS SUMMARY | ~2019-08-21 | XMS | Encounter Summary ---
Demographics + + + | Address | [address] | | | [place] [address] | + + + | Home Phone [...] Author | [facility] | | | and Ankitana | + + + | Organization | [facility] | | | and [...] Team Providers + +------+ + | Care Flight Operations Specialist Name | Role | Phone | [...] | | CARDIOLOGY [address] | Tiffanie FIELD PROJECT MANAGER [address] | | | | | [place], | [place], | | | | | [place] [address] | [place] [address] | | | | | [phone] | [phone] | | | | | | | [...] | | | | | | [place] [address] | | | | | | [phone] | | | | | | | | +--------+---------+ + + + | 10/28/ | Office | Cardiology | Carol, | | | 2019 | Visit | | SALVATORE Moreno [address] | | | | | | [place], | | | | | | [place] [address] | | | | | | [phone] | | | | | | | | +--------+---------+ + + + documented as of this encounter Visit Diagnoses Not on filedocumented in this encounter"
--- OUTSIDE RECORDS SUMMARY | ~2019-08-21 | XMS | Encounter Summary ---
Demographics + + + | Address | [address] | | | [place] [address] | + + + | Home Phone | | + + + | Preferred Language | Unknown | + + + | Marital Status | | + + + | Gnosticist Affiliation | 1041 | + + + | Race | Unknown | + + + | Ethnic Group | Unknown | + + + Author + + + | Author | [facility] | | | and Ankitana | + + + | Organization | [facility] | | | and Ankitana | [...] Team Providers + +------+ + | Care Plastic Products Sales Representative Name | Role | Phone | + +------+ + | Yolanda Lee | PCP | | + +------+ + Encounter Details +--------+ + + + + | Date | Type | Department | Care Team | Description | +--------+ + + + + | 08/13/ | Hospital | [facility] | RichardSeamus W, | | | 2018 | Encounter | MED CTR OR INTRA OP | [address] | | | | | [address] | [place], [place] | | | | | [place], [place] | [address] | | | | | [address] | | | | | | [phone] | | | +--------+ + + + [...] | | | | | | [place] [address] | | | | | | [phone] | | | | | | | | +--------+---------+ + + + | 10/28/ | Office | Cardiology | Carol, | | | 2019 | Visit | | SALVATORE Moreno [address] | | | | | | [place], | | | | | | [place] [address] | | | | | | [phone] | | | | | | | [...] | | | | LARA WOODS MD ([id number]) | | | | | | on [...] | 1.00 | 0.60 - 1.30 | [facility] | | | | | mg/dL | [facility] | | | | | | MEDICAL | | | | | | CENTER - | | | | | | LABORATORY | | + + + + + + | eGFR if not | 56 (L)Comment: | >=60 | JUSTICE | | | | GLOMERULAR FILTRATION | mL/min/1.73m2 | [facility] | | | SAO TOMEAN | RATE,ESTIMATED | | MEDICAL | | | | mL/min/1.28w5Zgow than | | CENTER - | | [...] | 8.9 | 8.3 - 10.5 | [facility] | | | | | mg/dL | [facility] | | | | | | MEDICAL [...] [address] | [place] | [phone] | | [facility] | | [address] | | | - LABORATORY | | [...] OLSON. | [address] | [place], [place] | [phone] | | [facility] | | [address] | | | - LABORATORY | | [...] | | | | | | Starting [facility] 08/13/18 at 1034, For | | [...] eye for procedure, Starting | | | [facility] 08/13/18 at 1034, For 3 doses, [...] | | | | First dose on [facility] 08/13/18 at | | | | [...] | mL/hr | | | CONTINUOUS, Starting [facility] 08/13/18 | | AM PST | | | | | at 1100, TKO., Pre-op | | | | | | + +---------+ +---+-------+---+ + +---+ | | | + +---+ | ondansetron (ZOFRAN) injection | | | 4 mg 4 mg, Intravenous, ONCE | | | PRN, Nausea, Starting [facility] 08/13/18 | | | at 1222, For 1 dose, | | | Recovery/Phase I | | + +---+ | | | + +---+ | phenylephrine (HADLEY-SYNEPHRINE) | | | 10 % ophthalmic solution 1 drop | | | 1 drop, Left Eye, EVERY 5 MIN | | | PRN, Other, prep eye for | | | procedure, Starting [facility] 08/13/18 | | | at 1034, [...] | | | | First dose on [facility] 08/13/18 at | | | | [...]
--- OUTSIDE RECORDS SUMMARY | ~2019-08-21 | XMS | Encounter Summary ---
Demographics + + + | Address | [address] | | | [place] [address] | + + + | Home Phone [...] Author | [facility] | | | and Ankitana | + + + | Organization | [facility] | [...] Team Providers + +------+ + | Care Agricultural Lender Name | Role | Phone | + [...] | | FAMILY [facility]Y | [address] [facility] | unspecified location | | | | CENTER [address] | [place] [address] | (Primary Dx); | | | | [facility] | [phone] | Nausea and vomiting, | | | | [place], [place] | | intractability of | | | | [address] | | vomiting not | | | | [phone] | | specified, | | | | [...] be sent through Care Everywhere.Abdominal Pain, Adult (Bulgarian)Methamphetamine Abuse and Addiction, Understanding (Bulgarian)Vomiting (Adult) (Bulgarian)documented in this encounter Medications at Time of [...] | | | | | [place] [address] | | | | | | [phone] | | | | | | | | +--------+---------+ + + + | 10/28/ | Office | Cardiology | Carol, | | | 2019 | Visit | | SALVATORE Moreno [address] | | | | | | [place], | | | | | | [place] [address] | | | | | | [phone] | | | | | | | [...] ON? | | | | | | 7 | | | 13:20? | | | YOUNG, | | | | | | MELIND | | | A | | | E?MRN: | | | | | | [id number] | | | [id number] | | | his | | | [...] | | | 6-7cee | | | [id number] | | | a0 ED | | | Care | | | Guidel | | | malorie | | | from | | | [facility] | | | ence | | | [facility] | [facility] | | | | | | [facility] | | | alLast | | | | | | Update | | | d: | | | 6//15 | | | 12:00 | | | AM | | | Care | | | Recomm | | | endati | | | on:Car | | | e at | | | [place] | | | e | | | [place] | | | | | | [facility] [...] | | | tion | | | 2012, | | | shanks | | | [...] | | | Dates | | | [place] | | | | | | PROJEC [...] | | ectomy | | | , [place] | | | with | | | [...] + + | [facility] | [address] [facility] | [place] [address] | | | [facility] | | [...] - 1.030 | [facility] | | | [place] | | | [facility] | | [...] | | EPITHELIAL | significant. | | [facility] | | | UA | | [...] + + + | [facility] | [address] [facility] | [place] [address] | | | [facility] | | [...] | | | | | Signed by: Macrus Clinton | + + + +---------+ + [...] + | [facility] | [address] | [place] [address] | | | [facility] | | | | | LABORATORY [...] + | [facility] | [address] [address] | [place] [address] | | | [facility] | | [...] Chronic kidney disease, | ml/min/1.73m2 | [facility] | | | | if found over [...] + | [facility] | [address] [facility] | [place] [address] | | | [facility] | | [...] (H) | 4.0 - 11.0 K/uL | YINE | | | | | | [facility] [...] | + + + + + | [facility] | [address] | [place] [address] | | | [facility] | | | | | LABORATORY [...]
--- OUTSIDE RECORDS SUMMARY | ~2019-08-21 | XMS | Encounter Summary ---
Demographics + + + | Address | [address] | | | [place] [address] | + + + | Home Phone [...] + | Author | [facility] | | | and Ankitana | + + + | Organization | [facility] | | | and [...] Team Providers + +------+ + | Care Balance Clerk Name | Role | Phone | + +------+ + PCP | Unavailable | + +------+ + Encounter Details +--------+ + + + + | Date | Type | Department | Care Team | Description | +--------+ + + + + | 07/28/ | Hospital | [facility] | Trino Leon, | | | 2008 | Encounter | [facility]Y | [address] | | | | | [address] | [facility] | | | | | [facility] | [place] [address] | | | | | [place] | [phone] | | | | | [address] | | | | | | [phone] | | | +--------+ + + + [...] | | | | | | [place] [address] | | | | | | [phone] | | | | | | | | +--------+---------+ + + + | 10/28/ | Office | Cardiology | Carol, | | | 2019 | Visit | | SALVATORE Moreno [address] | | | | | | [place], | | | | | | [place] [address] | | | | | | [phone] | | | | | | | | +--------+---------+ + + + documented as of this encounter Visit Diagnoses Not on filedocumented in this encounter"
--- OUTSIDE RECORDS SUMMARY | ~2019-08-21 | XMS | Encounter Summary ---
Demographics + + + | Address | [address] | | | [place] [address] | + + + | Home Phone [...] + | Author | [facility] | | | and Ankitana | + + + | Organization | [facility] | [...] Providers + +------+ + | Care Machine Tack Puller Name | Role | Phone | + [...] | [address] | [place] [address] | | | | | [place], [place] | [phone] | | | | | [address] | | | | | | [phone] | | | +--------+ + + + [...] | | | | | [place] [address] | | | | | | [phone] | | | | | | | | +--------+---------+ + + + | 10/28/ | Office | Cardiology | Carol, | | | 2019 | Visit | | SALVATORE Moreno [address] | | | | | | [place] | | | | | | [place] [address] | | | | | | [phone] | | | | | | | | +--------+---------+ + + + documented as of this encounter Visit Diagnoses Not on filedocumented in this encounter"
--- OUTSIDE RECORDS SUMMARY | ~2019-08-21 | XMS | Encounter Summary ---
Demographics + + + | Address | [address] | | | [place] [address] | + + + | Home Phone | | + + + | Preferred Language | Unknown | + + + | Marital Status | | + + + | Yarsani Affiliation | 1041 | + + + | Race | Unknown | + + + | Ethnic Group | Unknown | + + + Author + + + | Author | [facility] | | | and Ankitana | + + + | Organization | [facility] | | | and Ankitana [...] Team Providers + +------+ + | Care Superintendent Ammunition Storage Name | Role | Phone | + [...] Congestive | MD Jorge | [address] | | | | | heart | [address] | [place], | | | | | failure, | [address] | [place] | | | | | unspecified | [place], | [address] | | | | | HF | [place] [address] | Phone: | | | | | chronicity, | Phone: | [phone] | | | | | unspecified | [phone] | Fax: | | | | | heart | Fax: | [phone] | | | | | failure type | [phone] | | | | | | (HCC) | | | | | | | Procedures | | | | | | | ECHO | | | | | | | Complete [place] | | | | | | | ECHO HEART | | | | | | | XTHORACIC,CO | | | | | | | MPLETE W | | | | | | | DOPPLER [place] | | | | | | | [...] + + | 10/01/ | Telephone | [facility] | Jorge Siddiqi, | Other (patient needs | | 2018 | | CARDIOLOGY [address] | [address] [facility] | an echo also) | | | | [address] [place], | [place], | | | | | [place] [address] | [place] [address] | | | | | [phone] | [phone] | | | | | | | [...] | | | | | [place] [address] | | | | | | [phone] | | | | | | | | +--------+---------+ + + + | 01/23/ | Office | Cardiology | Carol, | | | 2019 | Visit | | SALVATORE Moreno [address] | | | | | | [place], | | | | | | [place] [address] | | | | | | [phone] | | | | | | | [...]
--- OUTSIDE RECORDS SUMMARY | ~2019-08-21 | XMS | Encounter Summary ---
Demographics + + + | Address | [address] | | | [place] [address] | + + + | Home Phone [...] | Author | [facility] | | | and Ankitana | + + + | Organization | [facility] | | | and Ankitana [...] Team Providers + +------+ + | Care Esl Tutor Name | Role | Phone | + [...] + + | 08/30/ | Telephone | [place] | Vida Romeo | Hospital Follow-up | | 2015 | | Internal Medicine | ELÍAS Sharma | | | | | Hospitalists [address] | | | | | | [address] [place] [address] | | | | | | [address] | | | | | | [phone] | | | +--------+ + + + [...] | | | | | | [place] [address] | | | | | | [phone] | | | | | | | | +--------+---------+ + + + | 10/28/ | Office | Cardiology | Carol, | | | 2019 | Visit | | SALVATORE Moreno [address] | | | | | | [place] | | | | | | [place] [address] | | | | | | [phone] | | | | | | | [...]
--- OUTSIDE RECORDS SUMMARY | ~2019-08-21 | XMS | Encounter Summary ---
Demographics + + + | Address | [address] | | | [place] [address] | + + + | Home Phone [...] | [facility] | | | and Ankitana | + + + | Organization | [facility] | | | and Ankitana [...] Team Providers + +------+ + | Care Skill Training Program Coordinator Name | Role | Phone | + +------+ + | [place] | PCP | | + +------+ + Reason for Visit + + + | Reason | Comments | + + + | Dental Pain | abscess tooth. Scheduled for dentures on 03/28. | + + + Encounter Details +--------+---------+ + + + | Date | Type | Department | Care Team | Description | +--------+---------+ + + + | 03/20/ | Office | [facility] | Wendy Verma | Odontalgia (Primary | | 2013 | Visit | Division Urgent Care | MD Marcus [address] | Dx) | | | | [address] | DIVISION [place], | | | | | [place], [place] | [place] [address] | | | | | [address] | [phone] | | | | | | | [...] + + + | Blood Pressure | 161/94 | 03/20/2014 6:38 PM | | | | | PDT | | + + + + + | Pulse | 86 | 03/20/2014 6:38 PM | | | | | PDT | | + + + + + | Temperature | 36.7 C (98.1 F) | 03/20/2014 6:38 PM | | | | | PDT | | + + + + + | Respiratory Rate | 16 | 03/20/2014 6:38 PM | | | | | PDT | | + + + + + | Oxygen Saturation | 97% | 03/20/2014 6:38 PM | | | | | PDT | | + + + + + | Inhaled Oxygen | - | - | | | Concentration | | | | + + + + + | Weight | 68 kg (150 lb) | 03/20/2014 6:38 PM | | | | | PDT | | + + + + + | Height | 172.7 cm (5' 8") | 03/20/2014 6:38 PM | | | | | PDT | | + + + + + | Body Mass Index | 22.81 | 03/20/2014 6:38 PM | | | | | PDT | | + + + + + documented in this encounter Progress Notes Wendy Verma MD - 03/20/2014 6:49 PM PDT SUBJECTIVE: Smitha Pichardo is a 58 y.o. female who presents today with dental pain. The pain is o n the leftside and upper. The pain has been present for several days. Has appointment March 28 for dentures. No other significant past medical history. OBJECTIVE: Vitals as noted below Filed Vitals: 03/20/14 1838 BP: 161/94 Pulse: 86 Temp: 36.7 C (98.1 F) Resp: 16 PainSc: 8 PainLoc: Mouth EXAM-Healthy appearing female in no apparent distress HEENT-exam shows poor dentition without any facial or gum swelling. eyes are clear, ears-N ormal TM's bilaterally. Normal auditory canals and external ears. Non-tender. nose is radha l and throat shows no evidence of erythema, exudates or tonsillar enlargement. NECK-supple, without adenopathy or nuchal rigidity LUNGS-clear Cor-RRR ABD-soft and non-tender ASSESSMENT: 1. Odontalgia (525.9) PLAN: Antibiotics and tramadol per orders. Pt. is referred to her dental provider. documented in th is encounter Plan of [...] | | | | | [place] [address] | | | | | | [phone] | | | | | | | | +--------+---------+ + + + | 10/28/ | Office | Cardiology | Carol, | | | 2020 | Visit | | SALVATORE Moreno [address] | | | | | | [place], | | | | | | [place] [address] | | | | | | [phone] | | | | | | | | +--------+---------+ + + + documented as of this encounter Visit Diagnoses + + | Diagnosis | + + | Odontalgia - Primary Unspecified disorder of the teeth and supporting structures | + + documented in this encounter
--- OUTSIDE RECORDS SUMMARY | ~2019-08-21 | XMS | Encounter Summary ---
Demographics + + + | Address | [address] | | | [place] [address] | + + + | Home Phone [...] | Author | [facility] | | | and Ankitana | + + + | Organization | [facility] | | | and [...] Team Providers + +------+ + | Care Painter Set Name | Role | Phone | + [...] | | FAMILY EM[facility]ENCY | [address] [facility] | unspecified location | | | | CENTER [address] | [place] [address] | (Primary Dx); | | | | [facility] | [phone] | Nausea and vomiting, | | | | [place], [place] | | intractability of | | | | [address] | | vomiting not | | | | [phone] | | specified, | | | | [...] be sent through Care Everywhere.Abdominal Pain, Adult (Hungarian)Methamphetamine Abuse and Addiction, Understanding (Hungarian)Vomiting (Adult) (Hungarian)documented in this encounter Medications at Time of [...] | | | | | [place] [address] | | | | | | [phone] | | | | | | | | +--------+---------+ + + + | 10/28/ | Office | Cardiology | Carol, | | | 2019 | Visit | | SALVATORE Moreno [address] | | | | | | [place], | | | | | | [place] [address] | | | | | | [phone] | | | | | | | [...] E?MRN: | | | | | | [id number] | | | [id number] | | | his | | | [...] | | | 6-7cee | | | [id number] | | | a0 ED | | [...] | | | e | | | [place] | | | | | | Health [...] | | | Dates | | | [place] | | | | | | PROJEC [...] | | ectomy | | | , [place] | | | with | | | [...] + + | [facility] | [address] | [place] [address] | | | [facility] | | [...] - 1.030 | [facility] | | | [place] | | | [facility] | | [...] + + + + + | [facility] | [address] [facility] | [place] [address] | | | [facility]ITAL | | [...] + + | [facility] | [address] [facility] | [place] [address] | | | [facility] | | | | | [...] + | [facility] | [address] [facility] [facility] | [place] [address] | | | FAMILY [facility] | | [...] + | [facility] | [address] | [place] [address] | | | [facility] | | [...] + + + | [facility] | [address] | [place] [address] | | | [facility] | | | | | [...]
--- OUTSIDE RECORDS SUMMARY | ~2019-08-21 | XMS | Encounter Summary ---
Demographics + + + | Address | [address] | | | [place] [address] | + + + | Home Phone | | + + + | Preferred Language | Unknown | + + + | Marital Status | | + + + | Yazidi Affiliation | 1041 | + + + | Race | Unknown | + + + | Ethnic Group | Unknown | + + + Author + + + | Author | [facility] | | | and Ankitana | + + + | Organization | [facility] | | | and [...] Providers + +------+ + | Care Director Of Vocational Guidance Name | Role | Phone | + [...] + + | 05/20/ | Office | [facility] [place] | Jessy Agarwal MD | History of anemia | | 2019 | Visit | SLEEP DISORDER [address] | [address] | (Primary Dx) | | | | [address] [place] | [place] | | | | | [place] [address] | [address] | | | | | [phone] | | | +--------+---------+ + + + [...] breaths does not meet criteria for an abrasive grader ea or hypopnea. SLEEP STUDY HISTORY: None. REVELANT MEDICATIONS: Quetiapine, Fluoxetine, and lorazepam as needed. SUBJECTIVE: The patient rated sleep quality during sleep study as usual. Foundation Engineer note: patient tried and tolerated medium [...] | | | | | [place] [address] | | | | | | [phone] | | | | | | | | +--------+---------+ + + + | 10/28/ | Office | Cardiology | Carol, | | | 2019 | Visit | | SALVATORE Moreno [address] | | | | | | [place], | | | | | | [place] [address] | | | | | | [phone] | | | | | | | [...]
--- OUTSIDE RECORDS SUMMARY | ~2019-08-21 | XMS | Encounter Summary ---
Demographics + + + | Address | [address] | | | [place] [address] | + + + | Home Phone | | + + + | Preferred Language | Unknown | + + + | Marital Status | | + + + | Hinduism Affiliation | 1041 | + + + | Race | Unknown | + + + | Ethnic Group | Unknown | + + + Author + + + | Author | [facility] | | | and Ankitana | + + + | Organization | [facility] | | | and Ankitana [...] Team Providers + +------+ + | Care Staff Nurse Icu Resource Team Name | Role | Phone | + [...] W | jovanni) | | | | [place], | [place], | | | | | [place] [address] | [place] [address] | | | | | [phone] | [phone] | | | | | | | [...] | | | | | [place] [address] | | | | | | [phone] | | | | | | | | +--------+---------+ + + + | 10/28/ | Office | Cardiology | Carol, | | | 2019 | Visit | | SALVATORE Moreno [address] | | | | | | [place] | | | | | | [place] [address] | | | | | | [phone] | | | | | | | | +--------+---------+ + + + documented as of this encounter Visit Diagnoses Not on filedocumented in this encounter"
--- OUTSIDE RECORDS SUMMARY | ~2019-08-21 | XMS | Encounter Summary ---
Demographics + + + | Address | [address] | | | [place] [address] | + + + | Home Phone [...] | Author | [facility] | | | and Ankitana | + + + | Organization | [facility] | | | and Ankitana | [...] Team Providers + +------+ + | Care Rn Sane Name | Role | Phone | + +------+ + | [place] | PCP | | [...] + + | 03/20/ | Office | [facility] | Wendy Verma | Odontalgia (Primary | | 2013 | Visit | Division Urgent Care | MD Marcus [address] | Dx) | | | | [address] | DIVISION [place], | | | | | [place], [place] | [place] [address] | | | | | [address] | [phone] | | | | | | | [...] | | | | | [place] [address] | | | | | | [phone] | | | | | | | | +--------+---------+ + + + | 10/28/ | Office | Cardiology | Carol, | | | 2020 | Visit | | SALVATORE Moreno [address] | | | | | | [place], | | | | | | [place] [address] | | | | | | [phone] | | | | | | | | +--------+---------+ + + + documented as of this encounter Visit Diagnoses + + | Diagnosis | + + | Odontalgia - Primary Unspecified disorder of the teeth and supporting structures | + + documented in this encounter
--- OUTSIDE RECORDS SUMMARY | ~2019-08-21 | XMS | Encounter Summary ---
Demographics + + + | Address | [address] | | | [place] [address] | + + + | Home Phone [...] | Author | [facility] | | | and Ankitana | + + + | Organization | [facility] | [...] Team Providers + +------+ + | Care Chemical Laboratory Chief Name | Role | Phone | + +------+ + | [place] | PCP | | + +------+ + Encounter Details +--------+ + + + + | Date | Type | Department | Care Team | Description | +--------+ + + + + | 05/12/ | Orders Only | [facility] | Mani Schneider MD | | | 2011 | | [facility]ARDIOLOGY [facility] | [address] | | | | | [address] | [address] | | | | | [address] [place] | [place] | | | | | [address] | [address] | | | | | [phone] | | | +--------+ + + + [...] [place] | | | | | | [place] [address] | | | | | | [phone] | | | | | | | | +--------+---------+ + + + | 10/28/ | Office | Cardiology | Carol, | | | 2019 | Visit | | SALVTAORE Moreno [address] | | | | | | [place], | | | | | | [place] [address] | | | | | | [phone] | | | | | | | | +--------+---------+ + + + documented as of this encounter Procedures + +--------+ + + + | Procedure Name | Priori | Date/Time | Associated Diagnosis | Comments | | | ty | | | | + +--------+ + + + | HISTORICAL LAB PANEL | Routin | 05/16/2012 | | Results for this | | RESULT | e | | | procedure are in the | | | | | | results section. | + +--------+ + + + | HISTORICAL LAB PANEL | Routin | 05/12/2012 | | Results for this | | RESULT | e | | | procedure are in the | | | | | | results section. | + +--------+ + + + documented in this encounter Results HISTORICAL LAB PANEL RESULT (05/16/2012) + +-------+ + + + | Component | Value | Ref Range | Performed | Pathologist | | | | | At | Signature | + +-------+ + + + | Anion Gap | 6 | | EXTERNAL | | | | | | LAB | | + +-------+ + + + | B-TYPE | NULL | | EXTERNAL | | | NATRIURETIC | | | LAB | | | PEPTIDE | | | | | + +-------+ + + + | BUN | 6 | | EXTERNAL | | | | | | LAB | | + +-------+ + + + | Calcium | 8.5 | | EXTERNAL | | | | | | LAB | | + +-------+ + + + | Cl | 106 | | EXTERNAL | | | | | | LAB | | + +-------+ + + + | CO2 | 27 | | EXTERNAL | | | | | | LAB | | + +-------+ + + + | Creatinine | 1 | | EXTERNAL | | | | | | LAB | | + +-------+ + + + | GFR | NULL | | EXTERNAL | | | ESTIMATE | | | LAB | | + +-------+ + + + | Glucose | 89 | | EXTERNAL | | | | | | LAB | | + +-------+ + + + | Hct | 37.2 | | EXTERNAL | | | | | | LAB | | + +-------+ + + + | Hgb | 12.2 | | EXTERNAL | | | | | | LAB | | + +-------+ + + + | K | 4.3 | | EXTERNAL | | | | | | LAB | | + +-------+ + + + | MCH | 28.2 | | EXTERNAL | | | | | | LAB | | + +-------+ + + + | MCHC | 32.8 | | EXTERNAL | | | | | | LAB | | + +-------+ + + + | MCV | 86.1 | | EXTERNAL | | | | | | LAB | | + +-------+ + + + | Na | 139 | | EXTERNAL | | | | | | LAB | | + +-------+ + + + | Platelet | 290 | | EXTERNAL | | | Count | | | LAB | | + +-------+ + + + | RBC | 4.32 | | EXTERNAL | | | | | | LAB | | + +-------+ + + + | RDW-CV | 43.2 | | EXTERNAL | | | | | | LAB | | + +-------+ + + + | WBC | 5.5 | | EXTERNAL | | | | | | LAB | | + +-------+ + + + + + | Specimen | + + | | + + + +---------+ + + | Performing | Address | City/State/Zipcode | Phone Number | | Organization | | | | + +---------+ + + | EXTERNAL LAB | | | | + +---------+ + + HISTORICAL LAB PANEL RESULT (05/12/2012) + +--------+ + + + | Component | Value | Ref Range | Performed | Pathologist | | | | | At | Signature | + +--------+ + + + | Albumin/Monserrat | 0.7 | | EXTERNAL | | | bulin Ratio | | | LAB | | + +--------+ + + + | Albumin | 2.5 | | EXTERNAL | | | | | | LAB | | + +--------+ + + + | Alkaline | 150 | | EXTERNAL | | | Phosphatase | | | LAB | | + +--------+ + + + | ALT | 116 | | EXTERNAL | | | | | | LAB | | + +--------+ + + + | AST | 484 | | EXTERNAL | | | | | | LAB | | + +--------+ + + + | Anion Gap | 10 | | EXTERNAL | | | | | | LAB | | + +--------+ + + + | Bilirubin | 0.3 | | EXTERNAL | | | Total | | | LAB | | + +--------+ + + + | B-TYPE | NULL | | EXTERNAL | | | NATRIURETIC | | | LAB | | | PEPTIDE | | | | | + +--------+ + + + | BUN | 19 | | EXTERNAL | | | | | | LAB | | + +--------+ + + + | BUN/Creatin | 15 | | EXTERNAL | | | ine Ratio | | | LAB | | + +--------+ + + + | Calcium | 7.6 | | EXTERNAL | | | | | | LAB | | + +--------+ + + + | CK TOTAL | 3,158 | | EXTERNAL | | | | | | LAB | | + +--------+ + + + | CK-MB | 185.8 | | EXTERNAL | | | | | | LAB | | + +--------+ + + + | Cl | 109 | | EXTERNAL | | | | | | LAB | | + +--------+ + + + | CO2 | 22 | | EXTERNAL | | | | | | LAB | | + +--------+ + + + | Creatinine | 1.2 | | EXTERNAL | | | | | | LAB | | + +--------+ + + + | GFR | 49 | | EXTERNAL | | | ESTIMATE | | | LAB | | + +--------+ + + + | Globulin | 3.5 | | EXTERNAL | | | | | | LAB | | + +--------+ + + + | Glucose | 189 | | EXTERNAL | | | | | | LAB | | + +--------+ + + + | Hct | 40.3 | | EXTERNAL | | | | | | LAB | | + +--------+ + + + | Hgb | 13.3 | | EXTERNAL | | | | | | LAB | | + +--------+ + + + | K | 4.1 | | EXTERNAL | | | | | | LAB | | + +--------+ + + + | MCH | 28.1 | | EXTERNAL | | | | | | LAB | | + +--------+ + + + | MCHC | 33 | | EXTERNAL | | | | | | LAB | | + +--------+ + + + | MCV | 85 | | EXTERNAL | | | | | | LAB | | + +--------+ + + + | Na | 141 | | EXTERNAL | | | | | | LAB | | + +--------+ + + + | Platelet | 355 | | EXTERNAL | | | Count | | | LAB | | + +--------+ + + + | Total | 6 | | EXTERNAL | | | Protein | | | LAB | | + +--------+ + + + | RBC | 4.74 | | EXTERNAL | | | | | | LAB | | + +--------+ + + + | RDW-CV | 42.3 | | EXTERNAL | | | | | | LAB | | + +--------+ + + + | Troponin I | 121.76 | | EXTERNAL | | | | | | LAB | | + +--------+ + + + | WBC | 18.8 | | EXTERNAL | | | | | | LAB | | + +--------+ + + + + + | Specimen | + + | | + + + +---------+ + + | Performing | Address | City/State/Zipcode | Phone Number | | Organization | | | | + +---------+ + + | EXTERNAL LAB | | | | + +---------+ + + documented in this encounter Visit Diagnoses Not on filedocumented in this encounter"
--- OUTSIDE RECORDS SUMMARY | ~2019-08-21 | XMS | Encounter Summary ---
Demographics + + + | Address | [address] | | | [place] [address] | + + + | Home Phone | | + + + | Preferred Language | Unknown | + + + | Marital Status | | + + + | Nondenominational Affiliation | 1041 | + + + | Race | Unknown | + + + | Ethnic Group | Unknown | + + + Author + + + | Author | [facility] | | | and Ankitana | + + + | Organization | [facility] | | | and Ankitana [...] Team Providers + +------+ + | Care Travel Professional Name | Role | Phone | + +------+ + | Yolanda Lee | PCP | | + +------+ + Encounter Details +--------+ + + + + | Date | Type | Department | Care Team | Description | +--------+ + + + + | 02/25/ | Hospital | [facility] | Jesse Siddiqi MD | Cellulitis and | | 2015 | Encounter | [facility] | [address], | abscess of hand, | | | | ORTH[address]EDICS [address] | 9th floor [place], | except fingers and | | | | [address] [place], [place] | [place] [address] | thumb; Bacteremia | | | | [address] | [phone] | due to Streptococcus | | | | [phone] | | / Sepsis | +--------+ + [...] | | | | | [place] [address] | | | | | | [phone] | | | | | | | | +--------+---------+ + + + | 10/28/ | Office | Cardiology | Carol, | | | 2019 | Visit | | SALVATORE Moreno [address] | | | | | | [place] | | | | | | [place] [address] | | | | | | [phone] | | | | | | | [...]
--- OUTSIDE RECORDS SUMMARY | ~2019-08-21 | XMS | Encounter Summary ---
Demographics + + + | Address | [address] | | | [place] [address] | + + + | Home Phone [...] | Author | [facility] | | | and Ankitana | + + + | Organization | [facility] | | | and [...] Team Providers + +------+ + | Care Fiberglass Machine Operator Name | Role | Phone | + +------+ + PCP | Unavailable | + +------+ + Encounter Details +--------+ + + + + | Date | Type | Department | Care Team | Description | +--------+ + + + + | 07/28/ | Hospital | [facility] | Conversion | | | 2008 | Encounter | [facility] | Transaction, | | | | | CENTER [address] | Provider Unknown | | | | | [address] | [phone] | | | | | [place] | | | | | | [address] | | | | | | [phone] | | | +--------+ + + + [...] | | | | | | [place] [address] | | | | | | [phone] | | | | | | | | +--------+---------+ + + + | 10/28/ | Office | Cardiology | Carol, | | | 2020 | Visit | | SALVATORE Moreno [address] | | | | | | [place], | | | | | | [place] [address] | | | | | | [phone] | | | | | | | | +--------+---------+ + + + documented as of this encounter Visit Diagnoses Not on filedocumented in this encounter"
--- OUTSIDE RECORDS SUMMARY | ~2019-08-21 | XMS | Encounter Summary ---
Demographics + + + | Address | [address] | | | [place] [address] [...] | Author | [facility] | | | and Ankitana | + + + | Organization | [facility] | | | [...] Team Providers + +------+ + | Care Prototyper Name | Role | Phone | + [...] [address] | | | | | [address] | [facility] | | | | | [facility] | [place] [address] | | | | | [place] | [phone] | | | | | [address] | | | | | | [phone] | | | +--------+ + + + [...] | | | | | | [place] [address] | | | | | | [phone] | | | | | | | | +--------+---------+ + + + | 10/28/ | Office | Cardiology | Carol, | | | 2019 | Visit | | SALVATORE Moreno [address] | | | | | | [place], | | | | | | [place] [address] | | | | | | [phone] | | | | | | | [...] + + + | Exam Performed Location: [facility] | MISCELANIOUS | | TWO-VIEW CHEST [...] 07/31/2013 11:20 AM PDT Exam [facility]formed [facility]ICAL INFORMATION:Upper respiratory | | [...] + | MISCELLANEOUS LAB | | | [phone] | + +---------+ + + | MISCELANIOUS LAB | | | [phone] | + +---------+ + + documented in this encounter Visit Diagnoses Not on filedocumented in this encounter"
--- OUTSIDE RECORDS SUMMARY | ~2019-08-21 | XMS | Encounter Summary ---
Demographics + + + | Address | [address] | | | [place] [address] | + + + | Home Phone [...] + | Author | [facility] | | | and Ankitana | + + + | Organization | [facility] | [...] Team Providers + +------+ + | Care Outpatient Facility Physical Therapist Name | Role | Phone | [...] | | | | | [place] | [address] | | | | | [place] | | | | | | [address] | | | | | | [phone] | | | +--------+ + + + [...] | | | | | [place] [address] | | | | | | [phone] | | | | | | | | +--------+---------+ + + + | 10/28/ | Office | Cardiology | Carol, | | | 2019 | Visit | | SALVATORE Moreno [address] | | | | | | [place], | | | | | | [place] [address] | | | | | | [phone] | | | | | | | | +--------+---------+ + + + documented as of this encounter Visit Diagnoses Not on filedocumented in this encounter"
--- OUTSIDE RECORDS SUMMARY | ~2019-08-21 | XMS | Encounter Summary ---
Demographics + + + | Address | [address] | | | [place] [address] | + + + | Home Phone [...] | [facility] | | | and Ankitana | + + + | Organization | [facility] | | [...] Team Providers + +------+ + | Care Addressing Machine Operator Name | Role | Phone | + +------+ + | [place] [facility] | PCP | | + [...] N | Dx) | | | | [address] | [facility] | | | | | [facility] | [place] [address] | | | | | [place], [place] | [phone] | | | | | [address] | | | | | | [phone] | Bello Hughes MD | | | | | | [address] | | | | | | [place], [place] | | | | | | [address] | | | | | | | [...] sent through Care Everywhere.UNDERSTANDING Reji MALCOLM DECAY (BHUTANESE)documented in this encounter Medications at Time of [...] | | | | | | [place] [address] | | | | | | [phone] | | | | | | | | +--------+---------+ + + + | 10/28/ | Office | Cardiology | Carol, | | | 2019 | Visit | | SALVATORE Moreno [address] | | | | | | [place], | | | | | | [place] [address] | | | | | | [phone] | | | | | | | | +--------+---------+ + + + documented as of this encounter Visit Diagnoses + + | Diagnosis | + + | Tooth decay - Primary Unspecified dental caries | + + documented in this encounter"
--- OUTSIDE RECORDS SUMMARY | ~2019-08-21 | XMS | Encounter Summary ---
Demographics + + + | Address | [address] | | | [place] [address] | + + + | Home Phone | | + + + | Preferred Language | Unknown | + + + | Marital Status | | + + + | Mormonism Affiliation | 1041 | + + + | Race | Unknown | + + + | Ethnic Group | Unknown | + + + Author + + + | Author | [facility] | | | and Ankitana | + + + | Organization | [facility] | | | [...] Team Providers + +------+ + | Care Master Welder Name | Role | Phone | [...] + + | 02/26/ | Telephone | [place] | V[facility] | Hospital Follow-up | | 2014 | | Internal Medicine | EL[facility]AS Sharma | | | | | Hospitalists [address] | | | | | | [address] [place] [address] | | | | | | [address] | | | | | | [phone] | | | +--------+ + + + [...] | | | | | | [place] [address] | | | | | | [phone] | | | | | | | | +--------+---------+ + + + | 10/28/ | Office | Cardiology | Carol, | | | 2019 | Visit | | SALVATORE Moreno [address] | | | | | | [place], | | | | | | [place] [address] | | | | | | [phone] | | | | | | | | +--------+---------+ + + + documented as of this encounter Visit Diagnoses Not on filedocumented in this encounter"
--- OUTSIDE RECORDS SUMMARY | ~2019-08-21 | XMS | Encounter Summary ---
Demographics + + + | Address | [address] | | | [place] [address] | + + + | Home Phone | | + + + | Preferred Language | Unknown | + + + | Marital Status | | + + + | Scientology Affiliation | 1041 | + + + | Race | Unknown | + + + | Ethnic Group | Unknown | + + + Author + + + | Author | [facility] | | | and Ankitana | + + + | Organization | [facility] | | | and Ankitana [...] Providers + +------+ + | Care Senior Associate Name | Role | Phone | + +------+ + PCP | Unavailable | + +------+ + Encounter Details +--------+ + + + + | Date | Type | Department | Care Team | Description | +--------+ + + + + | 07/04/ | Orders Only | [facility] | [place], | | | 2007 | | [facility] MED CTR | [address] | | | | | LABORATORY [address] | [place] | | | | | [address] [place] | [address] | | | | | [address] | | | | | | [phone] | | | +--------+ + + + [...] | | | | | [place] [address] | | | | | | [phone] | | | | | | | | +--------+---------+ + + + | 10/28/ | Office | Cardiology | Carol, | | | 2019 | Visit | | SALVATORE Moreno [address] | | | | | | [place], | | | | | | [place] [address] | | | | | | [phone] | | | | | | | [...] | | 07/04/2008 15:57 SP TYPE: CYTOLOGY OT DR: TISSUES: | [...] inflammatory cells are included. Dictated by: Ladarius Foster | | | | | | Signed By: Ladarius Foster 07/05/2008 | | | | | | | | + + + + + + + + | Performing | Address | City/State/Zipcode | Phone Number | | Organization | | | | + + + + + | [facility] | [address] | [place] [address] | | | [facility] | | [...]
--- OUTSIDE RECORDS SUMMARY | ~2019-08-21 | XMS | Encounter Summary ---
Demographics + + + | Address | [address] | | | [place] [address] | + + + | Home Phone [...] | [facility] | | | and Ankitana | + + + | Organization | [facility] | | [...] Team Providers + +------+ + | Care Marine Engineering Teacher Name | Role | Phone | + +------+ + | Yolanda Lee | PCP | | + +------+ + Encounter Details +--------+ + + + + | Date | Type | Department | Care Team | Description | +--------+ + + + + | 03/08/ | Hospital | [facility] | Jesse Siddiqi MD | Cellulitis and | | 2015 | Encounter | [facility] OP | [address], | abscess of hand, | | | | INFUSION [address] | 9th floor [place], | except fingers and | | | | Ave [place], [place] | [place] [address] | thumb; Bacteremia | | | | [address] | [phone] | due to Streptococcus | | | | [phone] | | / Sepsis | +--------+ + [...] | | | | | [place] [address] | | | | | | [phone] | | | | | | | | +--------+---------+ + + + | 10/28/ | Office | Cardiology | Carol, | | | 2019 | Visit | | SALVATORE Moreno [address] | | | | | | [place] | | | | | | [place] [address] | | | | | | [phone] | | | | | | | [...]
--- OUTSIDE RECORDS SUMMARY | ~2019-08-21 | XMS | Encounter Summary ---
Demographics + + + | Address | [address] | | | [place] [address] | + + + | Home Phone [...] | Author | [facility] | | | and Ankitana | + + + | Organization | [facility] | | | and [...] Team Providers + +------+ + | Care Poll Clerk Name | Role | Phone | [...] | | | CENTER [address] | [place], [place] | | | | | [address] | [address] | | | | | [place] | | | | | | [address] | | | | | | [phone] | | | +--------+ + + + [...] | | | | | [place] [address] | | | | | | [phone] | | | | | | | | +--------+---------+ + + + | 10/28/ | Office | Cardiology | Carol, | | | 2019 | Visit | | SALVATORE Moreno [address] | | | | | | [place], | | | | | | [place] [address] | | | | | | [phone] | | | | | | | | +--------+---------+ + + + documented as of this encounter Visit Diagnoses Not on filedocumented in this encounter"
--- OUTSIDE RECORDS SUMMARY | ~2019-08-21 | XMS | Encounter Summary ---
Demographics + + + | Address | [address] | | | [place] [address] | + + + | Home Phone [...] + | Author | [facility] | | | and Ankitana | + + + | Organization | [facility] | [...] Team Providers + +------+ + | Care Pipe Organ Mechanic Name | Role | Phone | + +------+ + | Yolanda Lee | PCP | | + +------+ + Encounter Details +--------+ + + + + | Date | Type | Department | Care Team | Description | +--------+ + + + + | 03/07/ | Hospital | [facility] | Jesse Siddiqi MD | Cellulitis and | | 2015 | Encounter | [facility] OP | [address], | abscess of hand, | | | | INFUSION [address] | 9th floor [place], | except fingers and | | | | Ave [place], [place] | [place] [address] | thumb; Bacteremia | | | | [address] | [phone] | due to Streptococcus | | | | [phone] | | / Sepsis | +--------+ + [...] | | | | | [place] [address] | | | | | | [phone] | | | | | | | | +--------+---------+ + + + | 10/28/ | Office | Cardiology | Carol, | | | 2019 | Visit | | SALVATORE Moreno [address] | | | | | | [place] | | | | | | [place] [address] | | | | | | [phone] | | | | | | | [...]
--- OUTSIDE RECORDS SUMMARY | ~2019-08-21 | XMS | Encounter Summary ---
Demographics + + + | Address | [address] | | | [place] [address] | + + + | Home Phone | | + + + | Preferred Language | Unknown | + + + | Marital Status | | + + + | Mosque Affiliation | 1041 | + + + | Race | Unknown | + + + | Ethnic Group | Unknown | + + + Author + + + | Author | [facility] | | | and Ankitana | + + + | Organization | [facility] | | [...] Team Providers + +------+ + | Care Mechanical Equipment Sales Engineer Name | Role | Phone | [...] [address] | | | | | [address] [address] | [place] [address] | | | | | [place] | [phone] | | | | | [place] | | | | | | [address] | | | | | | [phone] | | | +--------+ + + + [...] | | | | | [place] [address] | | | | | | [phone] | | | | | | | | +--------+---------+ + + + | 10/28/ | Office | Cardiology | Carol, | | | 2019 | Visit | | SALVATORE Moreno [address] | | | | | | [place], | | | | | | [place] [address] | | | | | | [phone] | | | | | | | | +--------+---------+ + + + documented as of this encounter Visit Diagnoses Not on filedocumented in this encounter"
--- OUTSIDE RECORDS SUMMARY | ~2019-08-21 | XMS | Encounter Summary ---
Demographics + + + | Address | [address] | | | [place] [address] | + + + | Home Phone | | + + + | Preferred Language | Unknown | + + + | Marital Status | | + + + | Episcopal Affiliation | 1041 | + + + | Race | Unknown | + + + | Ethnic Group | Unknown | + + + Author + + + | Author | [facility] | | | and Ankitana | + + + | Organization | [facility] [...] Team Providers + +------+ + | Care Newspaper Distributor Supervisor Name | Role | Phone | [...] | | [facility] MED [facility] | [address] [facility] | | | | | LABORATORY [address] | [place] [address] | | | | | [address] [place] | [phone] | | | | | [address] | | | | | | [phone] | | | +--------+ + + + [...] | | | | | | [place] [address] | | | | | | [phone] | | | | | | | | +--------+---------+ + + + | 10/28/ | Office | Cardiology | Carol, | | | 2019 | Visit | | SALVATORE Moreno [address] | | | | | | [place], | | | | | | [place] [address] | | | | | | [phone] | | | | | | | [...] At | + + + | SPEC: [id number] RECD: 05/15/2009 12:19 STATUS: SOUT | PROVIDENCE [...] from this patient's right elbow soft tissue (-09-) showed | | | similar findings. Unless [...] + | [facility] | [address] [facility] | [place] [address] | | | [facility] | | [...]
--- OUTSIDE RECORDS SUMMARY | ~2019-08-21 | XMS | Encounter Summary ---
Demographics + + + | Address | [address] | | | [place] [address] | + + + | Home Phone | | + + + | Preferred Language | Unknown | + + + | Marital Status | | + + + | Protestant Affiliation | 1041 | + + + | Race | Unknown | + + + | Ethnic Group | Unknown | + + + Author + + + | Author | [facility] | | | and Ankitana | + + + | Organization | [facility] | [...] Team Providers + +------+ + | Care Press Maintainer Name | Role | Phone | [...] + + | 02/26/ | Telephone | [place] | [facility] | Hospital Follow-up | | 2014 | | Internal Medicine | ELÍAS Sharma | | | | | Hospitalists [address] | | | | | | [address] [place] [address] | | | | | | [address] | | | | | | [phone] | | | +--------+ + + + [...] | | | | | [place] [address] | | | | | | [phone] | | | | | | | | +--------+---------+ + + + | 10/28/ | Office | Cardiology | Carol, | | | 2019 | Visit | | SALVATORE Moreno [address] | | | | | | [place], | | | | | | [place] [address] | | | | | | [phone] | | | | | | | | +--------+---------+ + + + documented as of this encounter Visit Diagnoses Not on filedocumented in this encounter"
--- OUTSIDE RECORDS SUMMARY | ~2019-08-21 | XMS | Encounter Summary ---
Demographics + + + | Address | [address] | | | [place] [address] | + + + | Home Phone | | + + + | Preferred Language | Unknown | + + + | Marital Status | | + + + | Druze Affiliation | 1041 | + + + | Race | Unknown | + + + | Ethnic Group | Unknown | + + + Author + + + | Author | [facility] | | | and Ankitana | + + + | Organization | [facility] | [...] Team Providers + +------+ + | Care Nutrition Intern Name | Role | Phone | [...] | | | CENTER [address] | [place], [place] | | | | | [address] | [address] | | | | | [place] | | | | | | [address] | | | | | | [phone] | | | +--------+ + + + [...] | | | | | [place] [address] | | | | | | [phone] | | | | | | | | +--------+---------+ + + + | 10/28/ | Office | Cardiology | Carol, | | | 2019 | Visit | | SALVATORE Moreno [address] | | | | | | [place], | | | | | | [place] [address] | | | | | | [phone] | | | | | | | | +--------+---------+ + + + documented as of this encounter Visit Diagnoses Not on filedocumented in this encounter"
--- OUTSIDE RECORDS SUMMARY | ~2019-08-21 | XMS | Encounter Summary ---
Demographics + + + | Address | [address] | | | [place] [address] | + + + | Home Phone | | + + + | Preferred Language | Unknown | + + + | Marital Status | | + + + | Uatsdin Affiliation | 1041 | + + + | Race | Unknown | + + + | Ethnic Group | Unknown | + + + Author + + + | Author | [facility] | | | and Ankitana | + + + | Organization | [facility] [...] Team Providers + +------+ + | Care Store Product Demonstrator Name | Role | Phone | + +------+ + PCP | Unavailable | + +------+ + Encounter Details +--------+ + + + + | Date | Type | Department | Care Team | Description | +--------+ + + + + | 08/21/ | Hospital | [facility] | Bello Hughes MD | | | 2005 | Encounter | [facility] | [address] | | | | | CENTER [address] | [place], [place] | | | | | [address] | [address] | | | | | [place] | | | | | | [address] | | | | | | [phone] | | | +--------+ + + + [...] | | | | | | [place] [address] | | | | | | [phone] | | | | | | | | +--------+---------+ + + + | 10/28/ | Office | Cardiology | Carol, | | | 2019 | Visit | | SALVATORE Moreno [address] | | | | | | [place], | | | | | | [place] [address] | | | | | | [phone] | | | | | | | | +--------+---------+ + + + documented as of this encounter Visit Diagnoses Not on filedocumented in this encounter"
--- OUTSIDE RECORDS SUMMARY | ~2019-08-21 | XMS | Encounter Summary ---
Demographics + + + | Address | [address] | | | [place] [address] | + + + | Home Phone [...] Author | [facility] | | | and Ankitana | + + + | Organization | [facility] [...] Providers + +------+ + | Care Fiberglass Boat Assembly Supervisor Name | Role | Phone | + +------+ + PCP | Unavailable | + +------+ + Encounter Details +--------+ + + + + | Date | Type | Department | Care Team | Description | +--------+ + + + + | 08/10/ | Hospital | [facility] | [place], | | | 2010 | Encounter | [facility] | [address] | | | | | EMERGENCY CENTER | [place] [address] | | | | | [address] | [phone] | | | | | [place] | | | | | | [address] | | | | | | [phone] | | | +--------+ + + + [...] | | | | | | [place] [address] | | | | | | [phone] | | | | | | | | +--------+---------+ + + + | 10/28/ | Office | Cardiology | [place], | | | 2019 | Visit | | SALVATORE Moreno [address] | | | | | | [place], | | | | | | [place] [address] | | | | | | [phone] | | | | | | | | +--------+---------+ + + + documented as of this encounter Visit Diagnoses Not on filedocumented in this encounter"
--- OUTSIDE RECORDS SUMMARY | ~2019-08-21 | XMS | Encounter Summary ---
Demographics + + + | Address | [address] | | | [place] [address] | + + + | Home Phone [...] Author | [facility] | | | and Ankitana | + + + | Organization | [facility] | | | [...] Team Providers + +------+ + | Care Dough Mixer Operator Name | Role | Phone [...] [address] | [address]) | | | | [place], | [place], | | | | | [place] [address] | [place] [address] | | | | | [phone] | [phone] | | | | | | | [...] | | | | | [place] [address] | | | | | | [phone] | | | | | | | | +--------+---------+ + + + | 10/28/ | Office | Cardiology | Carol, | | | 2019 | Visit | | SALVATORE Moreno [address] | | | | | | [place] | | | | | | [place] [address] | | | | | | [phone] | | | | | | | | +--------+---------+ + + + documented as of this encounter Visit Diagnoses Not on filedocumented in this encounter"
--- OUTSIDE RECORDS SUMMARY | ~2019-08-21 | XMS | Encounter Summary ---
Demographics + + + | Address | [address] | | | [place] [address] | + + + | Home Phone | | + + + | Preferred Language | Unknown | + + + | Marital Status | | + + + | Sikhism Affiliation | 1041 | + + + | Race | Unknown | + + + | Ethnic Group | Unknown | + + + Author + + + | Author | [facility] | | | and Ankitana | + + + | Organization | [facility] | [...] Team Providers + +------+ + | Care Advanced Practice Registered Nurse Name | Role | Phone | [...] [place] | | | | | | [address] | [address] | | | | | | Phone: | Phone: | | | | | | [phone] | [phone] | | | | | | Fax: | Fax: | | | | | | [phone] | [phone] | +--------+ + + + + + [...] | | | | | (non-ST | 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 DRIVER [address] | | | | | | elevated | [address] | | | | | | myocardial | [place], | | | | | | infarction) | [place] | | | | | | ([facility]) | Phone: | | | | | | Procedures | [phone] | | | | | | DME: Walker | Fax: | | | | | | | [phone] | | +--------+--------+ + + + + [...] | Required | n | (non-ST | TRENCHER DRIVER [address] | REHABILITATIO | | | | | elevated | [address] | [address] | | | | | myocardial | [place], | [place] | | | | | infarction) | [place] | [place] | | | | | ([facility]) | Phone: | [address] | | | | | | [phone] | Phone: | | | | | | Fax: | [phone] | | | | | | [phone] | Fax: | | | | | | | [phone] | +--------+ + + + + + [...] + + | 06/07/ | Hospital [facility] | [place], | S/P CABG x 3 | | 2018 - | Encounter | [facility] | [address] | (Primary Dx); NSTEMI | | | | CARDIAC TRANSPLANT | [place] [address] | (non-ST elevated | | 06/15/ | | [address] | [phone] | myocardial | | 2018 | | [place] | | infarction) (HCC); | | | | [address] | PefEmma chase MD | Methamphetamine | | | | [phone] | [address], | abuse; Opiate abuse, | | | | | 9th floor [place], | continuous; | | | | | [place] [address] | Marijuana abuse; | | | | | [phone] | Non-intractable | | | | | | cyclical vomiting | | | | | Michael Olson MD [address] | with nausea; | | | | | [address] | Esophagitis; Chest | | | | | FLOOR [place] | pain syndrome; ASHD | | | | | [address] | (arteriosclerotic | | | | | | heart disease); | | | | | Friendshuh, Kathie, | Essential | | | | | [address] | hypertension; | | | | | [address]VE [place] | Methamphetamine use; | | | | | [address] | Marijuana use; | | | | | | Troponin level | | | | | Hemanth Webster | elevated; Ischemic | | | | | MD Veronica [address] | cardiomyopathy; | | | | | [address] [place] | Chronic GERD; | | | | | [address] | Elevated troponin | | | | [...] Pharmacist notified and gave patient number for [facility] pharmacy to transfer medications in AM. Given night time pain medications prior to leaving . The AVS was reviewed with patient and family with no pending questions or concerns. All b elongings were collected from the room and sent with the family. The pt is discharging home with family in [place]. New FWW sent with patient. No further questions and all teaching demo nstrated back to RN. Plan for d/c at 1800 when family arrives. Juancho Dalal AR BREAKER LAYER - 06/15/2018 12:01 PM PDT [facility] Discharge Summary [...] precauti ons. She was recently released from retirement before arriving at the ER and our social work specialist has confirmed that she is free to [...] and occupational therapy for post-op rehab. - [facility] [place] [facility]. Disposition: Home with family. Patient was advised to call our office or their telephone clerk telegraph office with any questions. Follow-Up: Follow-up Information SALVATORE Ventura. Go on 06/23/2018. Specialty: Nurse Practitioner Why: Hospital follow up scheduled at 11:[address] Roa Contact information: [address] [facility] [id number] Hemanth Webster MD. Schedule an appointment as soon as possible for a visit on 06/29/2018 . Specialty: Cardiothoracic Surgery Why: 11:30 AM Contact information: [address], [facility] [address] [facility] [address] Schedule an appointment as soon as possible for a visit with [facility]. Why: Please call to schedule your 1 month follow-up with cardiology. Contact information: [address] [place] [phone] Time spent on discharge planning: greater than 30 minutes CABG Checklist ACEI/ARB/ARNI prescribed: No - Hypotension Aspirin prescribed: Not addressed Beta mateus (evidence-based) prescribed: Yes Beta mateus prescribed: N/A - LV EF is less than 41% High intensity statin prescribed: Yes Referral to cardiac rehab: Yes Tobacco cessation counseling provided: Yes [facility] [address] [place] [id number] Portions of this chart may have been created with InvenQuery voice recognition software. Occasi onal wrong-word or [...] breath, please call Luis Alfredo estrada at [phone]. 2. For problems or concerns with your incision or your chest, please call [facility] (Surgery) at [phone]. After Coronary Artery Bypass Surgery When you [...] by medication, call your healthcare pr fuad. [phone] Darrell Gallegos, [address] [place] [address], [place] [address]. All rights reserve d. This information is [...] | | | | | | infarction) ([facility]), | | | | | [...] bedside. Pt states she was brought to [facility] by [facility] but states she is no l onger in custody. No guards at the door. SW Dermatologist Managing Partner suggested SW contact retirement to confirm. SW spoke with [facility] who confirms pt was released. SW spoke with pt regarding discharge plan. Pt plans to discharge to [facility]. SW available should further discharg e planning needs arise. Keith Lopez MD - 06/15/2018 8:45 AM PDT [facility] PATIENT NAME: Smitha Fletcher : 1955: [...] dilol. 2. Follow-up requested. Keith Harp MD, [facility] Portions of this chart were created with InvenQuery voice recognition software. Occasional wro ng-word or "sound-alike" substitutions may have occurred due to the inherent limitations of voice recognition software. Please read the chart carefully and recognize, using context, w here those substitutions have occurred. Deonte Ray MD - 06/15/2018 7:15 AM PDTFormatting of this no te might be different from the original. [facility] Pt. Name/Age/: Smitha Fletcher 62 y.o. 1955 Med. Record Number: [id number] Date of admission: 06/07/2018 POD # 4 Procedure: CABG X 3 Surgeon: Eleanor Subjective New complaints: poor sternal precautions. No c/o this morning. Acknowledges that came from [facility]. Not sure where she is going. No [...] Won, Arabella Sign Date/Time: 06/15/2018 6:31 AM Labs: Recent [...] signed by: Hector Decker PA-C Cardiothoracic Surgery [facility] [address], [place] [address] [place], [place] [id number] 06/15/2018 7:15 [facility] Agree with detailed plan nicely outlined by Hector shley Graves MSW - 06/14/2018 1:05 PM PDTSOCIAL WORK PLAN: TBD INTERVENTION: SW acknowledged order for return to retirement. Pt came from retirement per chart review and may have to go back there upon DC. RIZWANA will continue to follow for DC planning. Frandy Estrada ARNP - 06/14/2018 9:11 AM PDTBlood Glucose log reviewed. Patient is stable, with control led blood glucose. Not requiring insulin Diabetes Service will sign off. Medication Reconciliation for diabetes medications has been completed. Please contact us at [phone] should the need arise. Thank you for [...] signed by: Rip Yao M.D. CardioThoracic Surgery [facility] 06/14/2018 9:23 [facility] Pt. Name/Age/: Smitha Fletcher 62 y.o. 1955 Med. Record Number: [id number] Date of admission: 06/07/2018 POD # 3 [...] the patient is going. Willl have social work specialist start arrangements. Problem List Patient Active Problem [...] signed by: Hector Decker PA-C Cardiothoracic Surgery [facility] [address], [place] [address] [place] [address] 06/14/2018 8:59 [facility] Dave Hill MD - 06/14/2018 8:07 AM PDT [facility] PATIENT NAME: Smitha Fletcher : 1955: [...] Portions of this chart were created with InvenQuery voice recognition software. Occasional wro ng-word or [...] Per RN; she will be discharging from [facility] to retirement that she came from. Assessment for glucose [...] 0312 06/11/18 1637 06/11/18 1525 06/11/18 1456 09/06/18 0312 WBC 11.8* 12.1* 16.3* -- -- -- 7.3 HGB 10.3* 10.7* 11.0* 8.2* -- < > 12.6 HCT 30.7* 31.9* 32.0* -- -- -- 37.4 PLT 192 244 228 -- 208 -- 349 < > = values in this interval not displayed. Recent Labs Lab 06/13/18 0402 06/12/1831106/11/18 2301 06/11/18 19506/11/18 16306/11/18 1636 06/11/18 1525 06/11/18 1450 06/11/18 1035 06/11/1831106/10/18 17206/09/18 [...] interval not displayed. Recent Labs Lab 06/11/18 16306/11/18 14506/11/1831106/10/18 1722 INR 1.2* 1.4* 1.0 0.9 No [...] by: SALVATORE Elias 06/13/2018 14:53 Diabetes team, [facility] [phone] Amaury Hill MD - 06/13/2018 10:27 AM PDTFormatting of this note might be different from the origi nal. [facility] PATIENT NAME: Smitha Fletcher : 1955: [...] INTAKE/OUTPUT Intake/Output Summary (Last 24 hours) at 06/13/18 2145 Last data filed at 06/13/181999 Gross per [...] Portions of this chart were created with InvenQuery voice recognition software. Occasional wro ng-word or "sound-alike" substitutions may have occurred due to the inherent limitations of voice recognition software. Please read the chart carefully and recognize, using context, w here those substitutions have occurred.Electronically signed by Dave Bansal MD at 0 06/13/2018 9:46 PM PDTSiRip collins MD - 06/13/2018 8:10 AM PDTFormatting of [...] signed by: Rip Yao M.D. CardioThoracic Surgery [facility] 06/13/2018 9:35 [facility] Pt. Name/Age/: Smitha Fletcher 62 y.o. 1955 Med. Record Number: [id number] Date of admission: 06/07/2018 POD #2 Procedure: [...] signed by: Hector Decker PA-C Cardiothoracic Surgery [facility] [address], [address] [place] [address] 06/13/2018 8:11 [facility] Kezia Downing RN - 06/12/2018 3:10 [...] discharge planning. ASSESSMENT/CHART REVIEW: Pt resides in [place]. She has Medicare coverage. COPD, is risk for readmission. If pt d oes not need placement she may benefit from home health post acute care. D/C TRANSPORT: TBD BARRIERS TO D/C: Medical stability CONTACTS: Hanna Sethi: [phone] signed by JEFFY Cabrales at 06/12/2018 1 2:24 PM PDTDave Bansal MD - 06/12/2018 11:33 AM PDTFormatting of this note might b e different from the original. [facility] PATIENT NAME: Smitha Fletcher : 1955: AGE: [...] (PRECEDEX) infusion Stopped (06/11/18 2300) fentaNYL Stopped (06/12/18899) phenylephrine Stopped (09/07/18 0900) propofol infusion Stopped (06/11/182048) LABS Recent Results [...] 1.0 0.4 - 1.5 % Comment PS8 SFB966 O2 Content, Arterial 15.7 15.0 - 23.0 [...] 22:29 Result Value Ref Range Product Code D7377F46 UNIT # [id number] UNIT ABO O UNIT RH NEG CROSSMATCH INTERP Compatible Unit Status XM Blood Product Expiration Date and Time Product Blood Type Barcode 9500 Product Code W4055Z59 UNIT # [id number] UNIT ABO O UNIT RH NEG CROSSMATCH [...] 6:53 Result Value Ref Range Product Code E9639M43 UNIT # [id number] UNIT ABO O UNIT RH NEG CROSSMATCH INTERP Compatible Unit Status XM Blood Product Expiration Date and Time [id number] Product Blood Type Barcode 9500 POC Glucose [...] Min: 1 Max: 4 09/05 1901 - /07 0700 In: 7059 [P.O.:810; I.V.:4692] Out: 5565 [...] Duvall MD - 06/12/2018 10:12 AM PDT [facility] Hemanth Webster [...] Date of Service: 06/10/2018 PCP: Yolanda Lee [facility] Hospital Day: 1 Hospital Course: This is a 62 y.o.femalewith hx substance abuse, DE and stent [place] [address] Brittnee Sandoval cardiology. She was brought from retirement, complaining of severe 8-10 burning chest pain substernally, wh ich radiates [...] 0659 06/09 07 - 06/10 0659 06/10 700 - 06/10 [...] - Single Lumen 06/10/18 1446 Right Forearm jxhl-uwi-yfrknp catheter sys tem 22 gauge;1 in length [...] - 99 mg/dL Final Comment: Performed by [facility] [address] [place] [address] All pertinent labs and imaging have been [...] this chart may have been created with InvenQuery voice recognition software. Occasi onal wrong-word or sound-alike substitutions may have occurred due to the inherent meyers itations of voice recognition software. Please read the chart carefully and recognize, using context, where these substitutions have occurred Brenna Henderson, Nv dical Student - 06/10/2018 11:05 AM PDTFormatting [...] TTE 06/08/18 showed LVEF of 45% with tjtzghxt-up-vxaoat hypokinesis of lateral and inferio r castillo. [...] female with a pmhx of polysubstance abuse, CAD/DE s/p stent (2011), ischemic EFrEF (LVEF of 45%), HTN, bipolar disorder, nicotine dependence and incarce ration that presented from retirement with severe left sided chest pain that [...] r educational purposes. Please refer to attending/resident/physician geriatric nurse assistant/nurse practit ioner note regarding further patient [...] TTE on 018 revealed LVEF = 45%, okmtafew-yt-cucvfc hypokinesis of lateral and inferior castillo, julian [...] Complaint: Chest pain Hospital Course: 62F PMH CAD/DE s/p stent (2011), ischemic HFrEF (LVEF = 45%), HTN, polysubstance abuse (met hamphetamine & marijuana), HCV, bipolar disorder, nicotine dependence and incarceration pres ented from retirement w/ severe, burning, substernal chest pain w/ radiation to left shoulder and associated nausea and vomiting. Workup in ED revealed troponin elevation (peak 0.311 this admission) and patient was admitt ed for further workup and management w/ cardiology. Labs in ED also revealed UDS positive fo r amphetamine, methamphetamine, benzodiazepines and opiates. TTE revealed LVEF = 45%, xltravbk-ci-kmilps hypokinesis of lateral and inferior castillo, mitr [...] is a 62 y.o.femalewith hx substance abuse, DE and stent placement in [address] Sandoval cardiology. She was brought from retirement, complaining of severe 8-9/10 burning chest pain [...] hypokinesis present but the patient has has DE's in the past . Mild LVH. Stress [...] Single Lumen 06/09/18 0836 Left Distal Forearm egwx-ttx-xbkfjv cathet er system 20 gauge;1 1/4 in [...] this chart may have been created with InvenQuery voice recognition software. Occasi onal wrong-word or sound-alike substitutions may have occurred due to the inherent meyers itations of voice recognition software. Please read the chart carefully and recognize, using context, where these substitutions have occurred okaleyt, Shad Herrera MD - 06/09/2018 9:50 AM [...] TTE on 018 revealed LVEF = 45%, xaeucszk-eu-cmjvyz hypokinesis of lateral and inferior castillo, julian [...] Complaint: Chest pain Hospital Course: 62F PMH CAD/DE s/p stent (2011), ischemic HFrEF (LVEF = 45%), HTN, polysubstance abuse (met hamphetamine & marijuana), HCV, bipolar disorder, nicotine dependence and incarceration pres ented from retirement w/ severe, burning, substernal chest pain w/ radiation to left shoulder and associated nausea and vomiting. Workup in ED revealed troponin elevation (peak 0.311 this admission) and patient was admitt ed for further workup and management w/ cardiology. Labs in ED also revealed UDS positive fo r amphetamine, methamphetamine, benzodiazepines and opiates. TTE revealed LVEF = 45%, yaccxfoo-eu-vpnmzx hypokinesis of lateral and inferior castillo, mitr [...] signed by: Shad Schuler MD 06/09/2018 18:44 iMichael zambrano MD - 4:25 PM PDT Patient: Smitha Fletcher Date of : 1955 Admit Date: 06/07/2018 Date of Service: 06/08/2018 PCP: Yolanda Lee TRENCHER DRIVER [facility] Day: 0 Hospital Course: This is a 62 y.o. female with hx substance abuse, DE and stent [place] [address] Riya banuelos cardiology. She was brought from retirement, complaining on sever -06/15 burning chest pain [...] hypokinesis present but the patient has has DE's in the past . Mild LVH. Stress [...] Objective: Vital Signs 06/06 700 - 06/07 - 06/08 - 06/08 1625 Most Rec ent Temp [...] 06/07/18 1545 Right Anterior (palmar);Medial Forearm ove e-thu-gzpdox catheter system 20 gauge;other (see comments) 1 [...] this chart may have been created with InvenQuery voice recognition software. Occasi onal wrong-word or [...] Portions of this chart were created with InvenQuery voice recognition software. Occasional wro ng-word or "sound-alike" substitutions may have occurred due to the inherent limitations of voice recognition software. Please read the chart carefully and recognize, using context, w here those substitutions have occurred.Electronically signed by Shad Schuler MD at 06/08 10:27 AM Rhiannon Irene RN - 06/07/2018 3:09 PM [id number] arrived to floor. Somu nlent. Asking very [...] | | | | | | [facility] | | | | | | [place] [address] | | | | | | [phone] | | | | | | | | +--------+---------+ + + + | 10/28/ | Office | Cardiology | Carol, | | | 2019 | Visit | | SALVATORE Moreno [address] | | | | | [address] [place], | | | | | | [place] [address] | | | | | | [phone] | | | | | | | [...] | | | | | | infarction) ([facility]) | | + +------+--------+ + + + [...] | | | | | | infarction) ([facility]) | | + + +--------+ + + [...] PROVIDENCE | | | | Performed by [facility] [address] | [address] | | | [address] [place] | | HEART | | | | [address] | | MEDICAL | | | | [...] + | [facility] | [address] [facility] [address]. | [place] [address] | | | [facility] | | | | | LABORATORY [...] | | MEDICAL | | | | [facility] [address], | | CENTER | | | | [place] [address] | | LABORATORY | | | | [...] + | [facility] | [address] | [place] [address] | | | [facility] | | | | | RIVERA [...] + | Tim, Presley Results In - 06/15/2018 6:35 AM PDT [...] + + + + | Product | [id number] | | REFERENCE | | | Code | | | [facility] | | | | | | [facility] | | | | | | [facility] | | | | | | [facility] | | | | | | CENTER | | + + + + + + | UNIT # | [id number] | | REFERENCE | | | | | | [facility] | | | | | | [facility] | | | | | | [facility] | | | | | | [facility] | | | | | | CENTER | | + + + + + + | UNIT ABO | O | | REFERENCE | | | | | | [facility] | | | | | | [facility] | | | | | | [facility] | | | | | | BLOOD | | | | | | CENTER | | + + + + + + | UNIT RH | NEG | | REFERENCE | | | | | | [facility] | | | | | | [facility] | | | | | | [facility] | | | | | | BLOOD | | | | | | CENTER | | + + + + + + | CROSSMATCH | Compatible | | REFERENCE | | | INTERP | | | [facility] | | | | | | [facility] | | | | | | [facility] | | | | | | BLOOD | | | | | | CENTER | | + + + + + + | Unit Status | RE | | REFERENCE | | | | | | [facility] | | | | | | [facility] | | | | | | [facility] | | | | | | BLOOD | | | | | | CENTER | | + + + + + + | Blood | [id number] | | REFERENCE | | | Product | | | [facility] | | | Expiration | | | [facility] | | | Date and | | | [facility] | | | Time | | | BLOOD | | | | | | CENTER | | + + + + + + | Product | [id number] | | REFERENCE | | | Blood Type | | | [facility] | | | Barcode | | | [...] + + + | Specimen Expiration Date: [id number] | REFERENCE LAB | | | [facility] | | | [facility] | | | [facility] | + + + + + + + + | Performing | Address | City/State/Zipcode | Phone Number | | Organization | | | | + + + + + | REFERENCE LAB | [address] | [place] [address] | [phone] | | [facility] | | | | | [facility] [...] | | | POC | Performed by [facility] [address] | | [address] | | | | [address], [place] | | HEART | | | | [address] | | MEDICAL | | | | [...] [address] | [place] [address] | | | [facility] | | | | | LABORATORY JAMINNER | | | | + + + + + Red Blood Cells (06/14/2018 12:12 PM PDT) + + + + + + | Component | Value | Ref Range | Performed | Pathologist | | | | | At | Signature | + + + + + + | Product | [id number] | | REFERENCE | | | Code | | | [facility] | | | | | | [facility] | | | | | | [facility] | | | | | | BLOOD | | | | | | CENTER | | + + + + + + | UNIT # | [id number] | | REFERENCE | | | | | | [facility] | | | | | | [facility] | | | | | | [facility] | | | | | | BLOOD | | | | | | CENTER | | + + + + + + | UNIT ABO | O | | REFERENCE | | | | | | [facility] | | | | | | [facility] | | | | | | [facility] | | | | | | BLOOD | | | | | | CENTER | | + + + + + + | UNIT RH | NEG | | REFERENCE | | | | | | [facility] | | | | | | [facility] | | | | | | [facility] | | | | | | BLOOD | | | | | | CENTER | | + + + + + + | CROSSMATCH | Compatible | | REFERENCE | | | INTERP | | | [facility] | | | | | | [facility] | | | | | | [facility] | | | | | | BLOOD | | | | | | CENTER | | + + + + + + | Unit Status | IS | | REFERENCE | | | | | | [facility] | | | | | | [facility] | | | | | | [facility] | | | | | | B[facility] | | | | | | CENTER | | + + + + + + | Blood | [id number] | | REFERENCE | | | Product | | | [facility] | | | Expiration | | | [facility] | | | Date and | | | [facility] | | | Time | | | BLOOD | | | | | | CENTER | | + + + + + + | Product | [id number] | | REFERENCE | | | Blood Type | | | [facility] | | | Barcode | | | [facility] | | | | | | [facility] | | | | | | BLOOD | | | | | | CENTER | | + + + + + + | Product | [id number] | | REFERENCE | | | Code | | | [facility] | | | | | | [facility] | | | | | | [facility] | | | | | | BLOOD | | | | | | CENTER | | + + + + + + | UNIT # | [id number] | | REFERENCE | | | | | | [facility] | | | | | | [facility] | | | | | | [facility] | | | | | | BLOOD | | | | | | CENTER | | + + + + + + | UNIT ABO | O | | REFERENCE | | | | | | [facility] | | | | | | [facility] | | | | | | [facility] | | | | | | BLOOD | | | | | | CENTER | | + + + + + + | UNIT RH | NEG | | REFERENCE | | | | | | [facility] | | | | | | [facility] | | | | | | [facility] | | | | | | BLOOD | | | | | | CENTER | | + + + + + + | CROSSMATCH | Compatible | | REFERENCE | | | INTERP | | | [facility] | | | | | | [facility] | | | | | | [facility] | | | | | | BLOOD | | | | | | CENTER | | + + + + + + | Unit Status | IS | | REFERENCE | | | | | | [facility] | | | | | | [facility] | | | | | | [facility] | | | | | | BLOOD | | | | | | CENTER | | + + + + + + | Blood | [id number] | | REFERENCE | | | Product | | | [facility] | | | Expiration | | | [facility] | | | Date and | | | [facility] | | | Time | | | BLOOD | | | | | | CENTER | | + + + + + + | Product | [id number] | | REFERENCE | | | Blood Type | | | [facility] | | | Barcode | | | [...] + + + | Specimen Expiration Date: [id number] | REFERENCE LAB | | | [facility] | | | [facility] | | | [facility] | + + + + + + + + | Performing | Address | City/State/Zipcode | Phone Number | | Organization | | | | + + + + + | REFERENCE LAB | [address] | [place] [address] | [phone] | | [facility] | | | | | [facility] [...] | | | POC | Performed by [facility] [address] | | [address] | | | | [address] [place] | | HEART | | | | [address] | | MEDICAL | | | | [...] + | [facility] | [address] | [place] [address] | | | [facility] | | | | | LABORATORY [...] | | | POC | Performed by [facility] [address] | | SACRED | | | | [address], [place] | | HEART | | | | [address] | | MEDICAL | | | | [...] + | AMILCAR CARDONA | [address] | [place] [address] | | | [facility] | | | | | RIVERA [...] | | | POC | Performed by [facility] [address] | | SACRED | | | | [address] [place] | | HEART | | | | [address] | | MEDICAL | | | | [...] + | AMILCAR CARDONA | [address] | [place] [address] | | | [facility] | | | | | LABORATORY [...] | | | POC | Performed by [facility] [address] | | SACRED | | | | [address], [place] | | HEART | | | | [address] | | MEDICAL | | | | [...] + | AMILCAR CARDONA | [address] | [place] [address] | | | [facility] | | | | | RIVERA [...] | | | POC | Performed by [facility] [address] | | SACRED | | | | [address] [place] | | HEART | | | | [address] | | MEDICAL | | | | [...] [address] | [place] [address] | | | [facility] | | | | | LABORATORY [...] | | | POC | Performed by [facility] [address] | | SACRFAUSTO | | | | [address] [place], [place] | | HEART | | | | [address] | | MEDICAL | | | | [...] + | AMILCAR CARDONA | [address] | [place] [address] | | | [facility] | | | | | LABORATORY [...] PROVIDENCE | | | | Performed by [facility] [address] | | SACRED | | | | [address] [place] | | HEART | | | | [address] | | MEDICAL | | | | [...] SACRED | [address] | [place] [address] | | | [facility] | | | | | [...] | | MEDICAL | | | | [facility] [address], | | CENTER | | | | [place] [address] | | LABORATORY | | | | [...] + | AMILCAR CARDONA | [address] | [place] [address] | | | [facility] | | | | | LABORATORY [...] | | | POC | Performed by [facility] [address] | | SACRED | | | | [address], [place] | | HEART | | | | [address] | | MEDICAL | | | | [...] SACRED | [address] | [place] [address] | | | HEART [facility] | | | | | [...] | | | POC | Performed by [facility] [address] | | SACRED | | | | [address] [place] [place], [place] | | HEART | | | | [address] | | MEDICAL | | | | [...] + | AMILCAR CARDONA | [address] | [place] [address] | | | [facility] | | | | | LABORATORY [...] | | | POC | Performed by [facility] [address] | | SACRED | | | | [address], [place], [place] | | HEART | | | | [address] | | MEDICAL | | | | [...] SACRED | [address] | [place] [address] | | | HEART [facility] | | | | | [...] | | | POC | Performed by [facility] [address] | | SACRED | | | | [address] [place], [place] | | HEART | | | | [address] | | MEDICAL | | | | [...] + | AMILCAR CARDONA | [address] | [place] [address] | | | [facility] | | | | | LABORATORY [...] | | | POC | Performed by [facility] [address] | | SACRED | | | | [address], [place], [place] | | HEART | | | | [address] | | MEDICAL | | | | [...] SACRED | [address] | [place] [address] | | | HEART [facility] | | | | | [...] | [facility]ENCE | | | POC | [facility] [address], | | SACRED | | | | [place] [address] | | HEART | | | |Performed by [facility] [address], [place] [address] | | MEDICAL | | | | [...] + | AMILCAR CARDONA | [address] | [place] [address] | | | [facility] | | | | | LABORATORY [...] | | | POC | Performed by [facility] [address] | | SACRED | | | | [address] [place] | | HEART | | | | [address] | | MEDICAL | | | | [...] + + | AMILCAR SACRED | [address] | [place] | | | [facility] | | | | | LABORATORY [...] | YINE | | | POC | [facility] [address], | | SACRED | | | | [place] | | HEART | | | |Performed by [facility] [address], [place] | | MEDICAL | | | | [...] + | AMILCAR CARDONA | [address] | [place] [address] | | | HEART [facility] | | | | | LABORATORY [...] + | Tim, Presley Results In - 06/12/2018 4:19 AM PDT [...] | [facility] | | | POC | [facility] [address], | | SACRED | | | | [place] [address] | | HEART | | | |Performed by [facility] [address], [place] [address] | | MEDICAL | | | | [...] + | AMILCAR CARDONA | [address] | [place] [address] | | | [facility] | | | | | RIVERA [...] | TRACEMASTER | | Duration:184 msP Horizontal [place]:5 degP Front [place]:55 degQ Onset:508 | | | msQRSD Interval:104 msQT Interval:452 msQTcB:452 msQTcF:452 msQRS | | | Horizontal [place]:129 degQRS [place]:-53 degI-40 Horizontal [place]:77 degI-40 | | | Front [place]:-44 degT-40 Horizontal [place]:204 degT-40 Front [place]:-83 | | | degT Horizontal [place]:95 degT Wave [place]:39 degS-T Horizontal [place]:79 | | | degS-T Front [place]:49 degSeverity:- ABNORMAL ECG -INTERP:SINUS | | | RHYTHMINTERP:CONSIDER RIGHT VENTRICULAR HYPERTROPHYINTERP:PROBABLE | | | INFERIOR INFARCT, AGE INDETERMINATEINTERP:BORDERLINE ST ELEVATION, | | | ANTERIOR LEADSElectronically signed by: ELIZABETH CAMPBELL 06-12-2018 | | | 07:37:14 | | |QRS Horizontal [place]:129 deg | | |QRS [place]:-53 deg | | |I-40 Horizontal [place]:77 deg | | |I-40 Front [place]:-44 deg | | |T-40 Horizontal [place]:204 deg | | |T-40 Front [place]:-83 deg | | |T Horizontal [place]:95 deg | | |T Wave [place]:39 deg | | |S-T Horizontal [place]:79 deg | | |S-T Front [place]:49 deg | | |Severity:- ABNORMAL ECG - [...] + | SARITHA REY | [address] | [place] [address] | [phone] | + + + + + CBC [...] [facility] | | | | Performed by [facility] [address] | | SACRED | | | | [address] [place] | | HEART | | | | [address] | | MEDICAL | | | | [...] + + | PROVIDEDEMIE SACRED | [address] | [place] [address] | | | [facility] | | | | | [...] | | MEDICAL | | | | [facility] [address], | | CENTER | | | | [place] [address] | | LABORATORY | | | | [...] + | AMILCAR CARDONA | [address] | [place] [address] | | | [facility] | | | | | LABORATORY [...] | | | POC | Performed by [facility] [address] | | SACRED | | [...] + | AMILCAR SACRED | [address] | [place] | | | HEART [facility] | | | | | [...] | [facility] | | | POC | [facility] [address], | | SACRED | | | | [place] [address] | | HEART | | | |Performed by [facility] [address], [place] [address] | | MEDICAL | | | | [...] + | YARELISCARLOS CARDONA | [address] | [place] [address] | | | [facility] | | | | | LABORATORY [...] | | | POC | Performed by [facility] [address] | | SACRED | | | | [address] [place] | | HEART | | | | [address] | | MEDICAL | | | | [...] + | [facility] SACRED | [address] | [place] [address] | | | [facility] | | | | | LABORATORY [...] | | | POC | Performed by [facility] [address] | | SACRED | | | | [address], [place] | | HEART | | | | [address] | | MEDICAL | | | | [...] + | YARELISDEMIKarly CARDONA | [address] | [place] [address] | | | [facility] | | | | | LABORATORY [...] [facility] | | | | Performed by [facility] [address] | mmol/L | SACRED | | | | [address] [place], [place] | | HEART | | | | [address] | | MEDICAL | | | | [...] + | [facility] SACRED | [address] | [place] [address] | | | [facility] | | | | | LABORATORY [...] 99 mg/dL | AMILCAR | | | | Performed by [facility] [address] | | SACRED | | | | [address], [place] | | HEART | | | | [address] | | MEDICAL | | | | [...] + | AMILCAR CARDONA | [address] | [place] [address] | | | [facility] | | | | | RIVERA [...] (H) | 32 - 43 mmHg | YARELISN CE | | | [...] CE | | | ARTERIAL | by [facility] [address], | | SACRED | | | | [place] [address] | | HEART | | | |Performed by [facility] [address], [place] [address] | | MEDICAL | | | | [...] [address] | [place] [address] | | | [facility] | | | | | LABORATORY [...] | | | POC | Performed by [facility] [address] | | SACRED | | | | [address], [place] | | HEART | | | | [address] | | MEDICAL | | | | [...] + | AMILCAR CARDONA | [address] | [place] [address] | | | [facility] | | | | | LABORATORY [...] | | | POC | Performed by [facility] [address] | | SACRED | | | | [address] [place] | | HEART | | | | [address] | | MEDICAL | | | | [...] + | AMILCAR CARDONA | [address] | [place] [address] | | | [facility] | | | | | LABORATORY [...] 3.9Comment: Performed | 3.5 - 5.0 | AMILCAR | | | | by [facility] [address], | mmol/L | SACRED | | | | [place], [place] | | HEART | | | |Performed by [facility] [address], [place] | | MEDICAL | | | [...] + | [facility] SACRED | [address] | [place], [place] | | | [facility] [...] | | | POC | Performed by [facility] [address] | | SACRED | | | | [address] [place] [place], [place] | | HEART | | | | [address] | | MEDICAL | | | | [...] + + | YARELISDEMIKarly MATAMOROSFAUSTO | [address] | [place] [address] | | | [facility] | | | | | LABORATORY [...] | TRACEMASTER | | Duration:180 msP Horizontal [place]:-10 degP Front [place]:68 degQ Onset:512 | | | msQRSD Interval:110 msQT Interval:444 msQTcB:486 msQTcF:472 msQRS | | | Horizontal [place]:112 degQRS [place]:-63 degI-40 Horizontal [place]:100 | | | degI-40 Front [place]:-58 degT-40 Horizontal [place]: degT-40 Front [place]:160 | | | degT Horizontal [place]:104 degT Wave [place]:-11 degS-T Horizontal | | | [place]:104 degS-T Front [place]:32 degSeverity:- ABNORMAL ECG -INTERP:SINUS | | | RHYTHMINTERP:PROBABLE LEFT ATRIAL ABNORMALITYINTERP:NONSPECIFIC IVCD | | | WITH LADINTERP:INFERIOR INFARCT, AGE INDETERMINATEINTERP:LATERAL | | | INFARCT, OLDElectronically signed by: ELIZABETH CAMPBELL 06-12-2018 | | | 11:18:02 | | |QRS Horizontal [place]:112 deg | | |QRS [place]:-63 deg | | |I-40 Horizontal [place]:100 deg | | |I-40 Front [place]:-58 deg | | |T-40 Horizontal [place]: deg | | |T-40 Front [place]:160 deg | | |T Horizontal [place]:104 deg | | |T Wave [place]:-11 deg | | |S-T Horizontal [place]:104 deg | | |S-T Front [place]:32 deg | | |Severity:- ABNORMAL ECG - [...] + | WAMT TRACEMASTER | [address] | [place] [address] | [phone] | + + + + + PTT [...] | | | | | seconds.Performed by [facility] | | | | | | [address], | | | | | | [place] [address] | | | | + + + + + + + + | Specimen | + + | Blood specimen | | (specimen) | + + + + + + + | Performing | Address | City/State/Zipcode | Phone Number | | Organization | | | | + + + + + | AMILCAR CARDONA | [address] | [place] [address] | | | [facility] | | | | | LABORATORY AL[place]IA | | | | + + + + + Oliveime INR (06/11/2018 4:37 PM PDT) + + [...] | | | | to 3.5Performed by [facility] | | LABORATORY | | | | [address] [place], | | [place] | | | | [place] [address] | | | | + + + + + + + + | Specimen | + + | Blood specimen | | (specimen) | + + + + + + + | Performing | Address | City/State/Zipcode | Phone Number | | Organization | | | | + + + + + | [facility] | [address] | [place] [address] | | | [facility] | | | | | LABORATORY [...] | | MEDICAL | | | | [facility] [address], | | CENTER | | | | [place] [address] | | LABORATORY | | | | [...] + | YARELISDEMIKarly BRENDAN | [address] | [place] [address] | | | [facility] | | | | | LABORATORY [...] [facility] | | | | Performed by [facility] | | SACRED | | | | [address] [place] | | HEART | | | | [address] | | MEDICAL | | | | [...] CARDONA | [address] | [place] [address] | | | HEART [facility] | | | | | [...] [facility] | | | Arterial | by [place] [address] [address], | mmol/L | SACRED | | | | [place] [address] | | HEART | | | |Performed by [facility] [address], [place] [address] | | MEDICAL | | | | [...] + | AMILCAR CARDONA | [address] | [place] [address] | | | [facility] | | | | | LABORATORY [...] E | | | Normalized | by [place] [address] [address], | mg/dL | SACRED | | | | [place] [address] | | HEART | | | |Performed by [place] [address], [place] [address] | | MEDICAL | | | | [...] + | YARELISDEMIKarly CARDONA | [address] | [place] [address] | | | [facility] | | | | | LABORATORY [...] YINE | | | | Performed by [facility] [address] | | SACRED | | | | [address] [place] [place], [place] | | HEART | | | | [address] | | MEDICAL | | | | [...] + | AMILCAR CARDONA | [address] | [place] [address] | | | HEART [facility] | | | | | LABORATORY ALTAGRAICA | | | | + + + [...] +--------- ----+ + | Comment | [id number] | | PROVIDEN CE | | | [...] CE | | | ARTERIAL | by [facility] [address], | | SACRED | | | | [place] [address] | | HEART | | | |Performed by [facility] [address], [place] [address] | | MEDICAL | | | | [...] + | AMILCAR CARDONA | [address] | [place] [address] | | | [facility] | [...] | Presley Dumont Results In - 06/11/2018 5:27 PM PDT [...] | | | Arterial | Performed by [facility] [address] | mmol/L | SACRED | | | | [address] [place] | | HEART | | | | [address] | | MEDICAL | | | | [...] + | AMILCAR CARDONA | [address] | [place] [address] | | | [facility] | | | | | LABORATORY [...] PROVIDEN CE | | | | by [facility] [address], | mmol/L | SACRED | | | | [place] [address] | | HEART | | | |Performed by [facility] [address], [place] [address] | | MEDICAL | | | | [...] + | AMILCAR CARDONA | [address] | [place] [address] | | | [facility] | | | | | LABORATORY [...] | | | | | seconds.Performed by [facility] | | | | | | [address], | | | | | | [place] [address] | | | | + + + + + + + + | Specimen | + + | Blood specimen | | (specimen) | + + + + + + + | Performing | Address | City/State/Zipcode | Phone Number | | Organization | | | | + + + + + | [facility] SACRFA[facility]O | [address] | [place] [address] | | | [facility] | | | | | LABORATORY [...] | | | Arterial | Performed by [facility] [address] | mmol/L | SACRED | | | | [address] [place] | | HEART | | | | [address] | | MEDICAL | | | | [...] + + | AMILCAR CARDONA | [address] | [place] [address] | | | [facility] | [...] 7.2 (L) | 11.3 - 15.5 | YARELISN CE | | | | | g/dL | SACRED | | | | | | HEART | | | | | | MEDICAL | | | | | | CENTER | | | | | | LABORATO RY | | | | | | CERNER | | + + + +--------- ----+ + | HCO3, | 24.2 | 23.0 - 28.0 | YARELISN CE | | | Arterial [...] PROVIDEN CE | | | | by [facility] [address], | mmol/L | SACRED | | | | [place] [address] | | HEART | | | |Performed by [facility] [address], [place] [address] | | MEDICAL | | | | [...] + | AMILCAR CARDONA | [address] | [place] [address] | | | [facility] | | | | | LABORATORY [...] [facility] | | | Arterial | by [facility] [address], | mmol/L | SACRED | | | | [place] [address] | | HEART | | | |Performed by [place] [address], [place] [address] | | MEDICAL | | | | [...] CARDONA | [address] | [place] [address] | | | [facility] | | | | | LABORATORY [...] 7.34 (L)Comment: | 7.37 - 7.47 | PROVIDEDEMIE | | | Arterial | Results Delivered [...] PROVIDEDEMIE | | | | Performed by [facility] [address] | | SACRED | | | | [address], [place] | | HEART | | | | [address] | | MEDICAL | | | | [...] [address] | [place] [address] | | | [facility] | [...] [facility] | | | Arterial | by [facility] [address], | mmol/L | SACRED | | | | [place] [address] | | HEART | | | |Performed by [facility] [address], [place] [address] | | MEDICAL | | | | [...] + | YARELISDEMIKarly CARDONA | [address] | [place] [address] | | | [facility] | | | | | RIVERA [...] PROVID[facility] | | | | Performed by [facility] [address] | | SACRED | | | | [address] [place] | | HEART | | | | [address] | | MEDICAL | | | | [...] + | AMILCAR CARDONA | [address] | [place] [address] | | | [facility] | | | | | RIVERA FRIAS | | | | + + + + + ECHO Transesophageal (CHIQUITA) (06/11/2018 1:05 PM PDT) + + | Specimen | + + | | + + + + -----+ | Narrative | Performed At | + + -----+ | | [facility] | | Transesophageal Echocardiography Report (CHIQUITA) Demographics Patient | | | Name [facility] Room Number 270 | | | ZIYAD Patient Number [id number] Date of | | | Study 06/11/2018 Visit Number [id number] Accession | | | [id number] Interpreting Sharad Richard, | | | MD Number Physician Date | | | of 1955 Referring Physician ELEANOR BERMUDEZ | | | VERONICA Age 62 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 Visible portions of ascending aorta | | | and arch normal. Grade 2atherosclerotic disease of descending aorta.9. | | | Pulmonary artery [id number]. Normal pericardium. No pericardial fluid. | | [...] pressures. TAPSE | | | measured with [employer] technology was 21.9mm. 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 Trace TR.7. Pulmonic valve normal Trace IN.8. Visible portions | | of ascending aorta and arch normal. 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 Pulmonary artery lponpe56. Normal pericardium. No pericardial fluid. No pleural [...] + + | Performing | Address | City/State/[facility] Hospital[facility] | Phone Number | | Organization [...] [facility] | | | Arterial | by [facility] [address], | mmol/L | SACRED | | | | [place] [address] | | HEART | | | |Performed by [facility] [address], [place] [address] | | MEDICAL | | | | [...] + | AMILCAR CARDONA | [address] | [place] [address] | | | [facility] | | | | | LABORATORY [place] | | | | + + + + + Chemistry Danay, A and Leo, Surgery (06/11/2018 1:00 PM PDT) + + [...] | | | Normalized | Performed by [facility] [address] | mg/dL | SACRED | | | | [address] [place] | | HEART | | | | [address] | | MEDICAL | | | | [...] + | AMILCAR CARDONA | [address] | [place] [address] | | | [facility] | | | | | LABORATORY CERSAMAN [...] [facility] | | | Arterial | by [facility] [address], | mmol/L | SACRED | | | | [place] [address] | | HEART | | | |Performed by [place] [address], [place] [address] | | MEDICAL | | | | [...] + | AMILCAR CARDONA | [address] | [place] [address] | | | [facility] | | | | | LABORATORY [...] [facility] | | | | Performed by [facility] [address] | mmol/L | SACRED | | | | [address] [place] | | HEART | | | | [address] | | MEDICAL | | | | [...] + | YARELISCARLOS CARDONA | [address] | [place] [address] | | | [facility] | | | | | LABORATORY [...] | | Screen | | | LAB [place] | | | | | | [facility] | | | | | | [facility] | | | | | | [facility] | | | | | | CENTER | | + + + + + + | ABO | O | | REFERENCE | | | | | | LAB [place] | | | | | | [facility] | | | | | | [facility] | | | | | | B[facility] | | | | | | CENTER | | + + + + + + | Rh Type | Negative | | REFERENCE | | | | | | LAB [place] | | | | | | [facility] [...] + + + | Specimen Expiration Date: [id number] | REFERENCE LAB | | | [place] | | | [facility] | | | [facility] | + + + + + + + + | Performing | Address | City/State/Zipcode | Phone Number | | Organization | | | | + + + + + | REFERENCE LAB | [address] | [place] [address] | [phone] | | [place] | | | | | [facility] [...] | | | POC | Performed by [facility] [address] | | SACRED | | | | [address] [place] | | HEART | | | | [address] | | MEDICAL | | | | [...] [address] | [place] [address] | | | [facility]ENTER | [...] CENTER | | | | 3.5Performed by [facility] [address] | | LABORATORY | | | | [place] | | [place] | | | | [address] | | | | + + + + + + + + | Specimen | + + | Blood specimen | | (specimen) | + + + + + + + | Performing | Address | City/State/Zipcode | Phone Number | | Organization | | | | + + + + + | AMILCAR SACRFAUSTO | [address] | [place] [address] | | | [facility] | | | | | [...] 7.3 | 3.8 - 11.0 K/uL | PROVIDEDEMIE | | | | | | SACRED [...] [facility] | | | | Performed by [facility] [address] | | SACRED | | | | [address] [place] | | HEART | | | | [address] | | MEDICAL | | | | [...] + | AMILCAR CARDONA | [address] | [place] [address] | | | [facility] | | | | | LABORATORY [...] | | MEDICAL | | | | [facility] [address], | | CENTER | | | | [place] [address] | | LABORATORY | | | | [...] + | AMILCAR CARDONA | [address] | [place] [address] | | | [facility] | | | | | RIVERA [...] | | | | | seconds.Performed by [facility] | | | | | | [address], | | | | | | [place] [address] | | | | + + + + + + + + | Specimen | + + | Blood specimen | | (specimen) | + + + + + + + | Performing | Address | City/State/Zipcode | Phone Number | | Organization | | | | + + + + + | AMILCAR CARDONA | [address] | [place] [address] | | | [facility] | | | | | LABORATORY [...] [facility] | | | Source | by [facility] [address], | | SACRED | | | | [place] [address] | | HEART | | | |Performed by [facility] [address], [place] [address] | | MEDICAL | | | | [...] + | AMILCAR CARDONA | [address] | [place] [address] | | | [facility] | | | | | LABORATORY [...] - 1.030 | [facility] | | | [place] | | | SACRED | | | [...] | | | SOURCE | Performed by [facility] [address] | | [facility] | | | | [address] [place] | | HEART | | | | [address] | | MEDICAL | | | | [...] | + + + + + | YINKarly BRENDAN | [address] | [place] [address] | | | [facility] | | | | | RIVER[place] [...] | | | POC | Performed by [facility] [address] | | [facility] | | | | [address] [place] | | HEART | | | | [address] | | MEDICAL | | | | [...] + | [facility] | [address] | [place] [address] | | | [facility] | | | | | LABORATORY [...] | | | | | seconds.Performed by [facility] | | | | | | [address], | | | | | | [place] [address] | | | | + + + + + + + + | Specimen | + + | Blood specimen | | (specimen) | + + + + + + + | Performing | Address | City/State/Zipcode | Phone Number | | Organization | | | | + + + + + | [facility] | [address] | [place] [address] | | | [facility] | | | | | LABORATORY [...] | | MEDICAL | | | | [facility] [address] | | CENTER | | | | [place] [address] | | LABORATORY | | | | [...] + | [facility] | [address] | [place] [address] | | | [facility] | | | | | LABORATORY [...] CENTER | | | | 3.5Performed by [facility] [address] | | LABORATORY | | | | [address] [place] | | [place] | | | | [address] | | | | + + + + + + + + | Specimen | + + | Blood specimen | | (specimen) | + + + + + + + | Performing | Address | City/State/Zipcode | Phone Number | | Organization | | | | + + + + + | [facility] | [address] | [place] [place] [address] | | | [facility] | | | | | LABORATORY [...] | | | POC | Performed by [facility] [address] | [address] | | | | [address], [place] | | HEART | | | | [address] | | MEDICAL | | | | [...] + | AMILCAR CARDONA | [address] | [place] [address] | | | [facility] | | | | | LABORATORY [...] test | | | | | | ([id number]).Performed At: | | | | | | [facility] [id number] | | | | | | [address] | | | | | | [place], [place] | | | | | | [id number] Daniel | | | | | | Riya MOJICA Ph:[phone] | | | | + + + + + + + + | Specimen | + + | Blood specimen | | (specimen) | + + + + + + + | Performing | Address | City/State/Zipcode | Phone Number | | Organization | | | | + + + + + | PROVIDEDEMIE BRENDAN | [address] | [place] [address] | | | [facility] | | | | | LABORATORY [...] | | | | | seconds.Performed by [facility] | | | | | | [address], | | | | | | [place] [address] | | | | + + + + + + + + | Specimen | + + | Blood specimen | | (specimen) | + + + + + + + | Performing | Address | City/State/Zipcode | Phone Number | | Organization | | | | + + + + + | AMILCAR CARDONA | [address] | [place] [address] | | | [facility] | | | | | [facility] | | | | + + + + + ECG 12 lead (06/10/2018 12:10 PM PDT) + + | Specimen | + + | | + + + + + | Narrative | Performed At | + + + | HEART RATE:71 | [facility] | | bpmRR Interval:845 msAtrial Rate:71 msP-R Interval:148 msP | [facility] | | Duration:152 msP Horizontal [place]:32 degP Front [place]:62 degQ Onset:512 | | | msQRSD Interval:110 msQT Interval:416 msQTcB:453 msQTcF:440 msQRS | | | Horizontal [place]:199 degQRS [place]:-83 degI-40 Horizontal [place]:77 degI-40 | | | Front [place]:-74 degT-40 Horizontal [place]:242 degT-40 Front [place]:216 | | | degT Horizontal [place]:84 degT Wave [place]:69 degS-T Horizontal [place]:97 | | | degS-T Front [place]:107 degSeverity:- ABNORMAL ECG -INTERP:SINUS | | | RHYTHMINTERP:NONSPECIFIC IVCD WITH LADINTERP:INFERIOR INFARCT, | | | OLDElectronically signed by: ELIZABETH CAMPBELL 06-12-2018 11:24:19 | | |QTcB:453 ms | | |QTcF:440 ms | | |QRS Horizontal [place]:199 deg | | |QRS [place]:-83 deg | | |I-40 Horizontal [place]:77 deg | | |I-40 Front [place]:-74 deg | | |T-40 Horizontal [place]:242 deg | | |T-40 Front [place]:216 deg | | |T Horizontal [place]:84 deg | | |T Wave [place]:69 deg | | |S-T Horizontal [place]:97 deg | | |S-T Front [place]:107 deg | | |Severity:- ABNORMAL ECG - | | |INTERP:SINUS RHYTHM | | |INTERP:NONSPECIFIC IVCD WITH LAD | | |INTERP:INFERIOR INFARCT, OLD | | |Electronically signed by: ELIZABETH CAMPBELL 06-12-2018 11:24:19 | | + + + + + + + + | Performing | Address | City/State/Zipcode | Phone Number | | Organization | | | | + + + + + | [facility] | [address] | [place] [address] | [phone] | + + + + + Pulmonary [...] | | | | | seconds.Performed by [facility] | | | | | | [address], | | | | | | [place] [address] | | | | + + + + + + + + | Specimen | + + | Blood specimen | | (specimen) | + + + + + + + | Performing | Address | City/State/Zipcode | Phone Number | | Organization | | | | + + + + + | AMILCAR [facility] | [address] | [place] [address] | | | [facility] | | | | | LABORATORY [...] test | | | | | | ([id number]).Performed At: | | | | | | [facility] [id number] | | | | | | [address] | | | | | | [place], [place] | | | | | | [id number] Daniel | | | | | | L Ph:[phone] | | | | + + + [...] SACRED | [address] | [place] [address] | | | [facility] | | | | | LABORATORY [...] | | | | | formula.Performed by [facility] | | | | | | [address], | | | | | | [place] [address] | | | | + + + + + + + + | Specimen | + + | Blood specimen | | (specimen) | + + + + + + + | Performing | Address | City/State/Zipcode | Phone Number | | Organization | | | | + + + + + | AMILCAR CARDONA | [address] | [place] [address] | | | [facility] | | | | | LABORATORY [...] | | | | | | LAB [place] | | | | | | [facility] | | | | | | [facility] | | | | | | [facility] | | | | | | [facility] | | + + + + + + | Rh Type | Negative | | REFERENCE | | | | | | LAB [place] | | | | | | [facility] | | | | | | [facility] | | | | | | [facility] | | | | | | CENTER | | + + + + + + + + | Specimen | + + | | + + + + + | Narrative | Performed At | + + + | Specimen Expiration Date: [id number] | [facility] | | | [place] [facility] | | | [facility] | | | [facility] | + + + + + + + + | Performing | Address | City/State/Zipcode | Phone Number | | Organization | | | | + + + + + | [facility] | [address] | [place] [address] | [phone] | | [place] | | | | | [facility] [...] | | Screen | | | LAB [place] | | | | | | [facility] | | | | | | [facility] | | | | | | B[facility] | | | | | | CENTER | | + + + + + + + + | Specimen | + + | | + + + + + | Narrative | Performed At | + + + | Specimen Expiration Date: [id number] | [facility] | | | [place] | | | [facility] | | | [facility] | + + + + + + + + | Performing | Address | City/State/Zipcode | Phone Number | | Organization | | | | + + + + + | [facility] | [address] | [place] [address] | [phone] | | [place] | | | | | [facility] [...] | | | | | | LAB [place] | | | | | | [facility] | | | | | | [facility] | | | | | | BLOOD | | | | | | CENTER | | + + + + + + + + | Specimen | + + | | + + + + + | Narrative | Performed At | + + + | Specimen Expiration Date: [id number] | [facility] | | | [place] | | | [facility] | | | [facility] | + + + + + + + + | Performing | Address | City/State/Zipcode | Phone Number | | Organization | | | | + + + + + | [facility] | [address] | [place] [address] | [phone] | | [place] | | | | | [facility] [...] | | | | | | LAB [place] | | | | | | [facility] | | | | | | [facility] | | | | | | B[facility] | | | | | | CENTER | | + + + + + + | Rh Type | Negative | | REFERENCE | | | | | | LAB [place] | | | | | | [facility] | | | | | | [facility] | | | | | | [facility] | | | | | | CENTER | | + + + + + + | Antibody | Positive | | REFERENCE | | | Screen | | | LAB [place] | | | | | | [facility] [...] + + + | Specimen Expiration Date: [id number] | [facility] | | | [place] | | | [facility] | | | [facility] | + + + + + + + + | Performing | Address | City/State/Zipcode | Phone Number | | Organization | | | | + + + + + | [facility] | [address] | [place] [address] | [phone] | | [place] | | | | | [facility] [...] | | | | | seconds.Performed by [facility] | | | | | | [address], | | | | | | [place] [address] | | | | + + + + + + + + | Specimen | + + | Blood specimen | | (specimen) | + + + + + + + | Performing | Address | City/State/Zipcode | Phone Number | | Organization | | | | + + + + + | AMILCAR CARDONA | [address] | [place] [address] | | | [facility] | | | | | LABORATORY [...] | proximal 40% LAD, 95% ostial septal polarity tester, 70% mid and distal LAD, 100% mid [...] LAD, 95% | | | ostial septal polarity tester, 70% mid and distal LAD, 100% mid [...] + + | Performing | Address | City/State/[facility] | Phone Number | | Organization [...] lateral castillo from | | | prior DE. 4. Mild destinee infarct ischemia. LARGE SEVERE inferior and | | | Lateral DE. 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 | | Duration:176 msP Horizontal [place]:19 degP Front [place]:70 degQ Onset:512 | | | msQRSD Interval:110 msQT Interval:444 msQTcB:480 msQTcF:467 msQRS | | | Horizontal [place]:157 degQRS [place]:-77 degI-40 Horizontal [place]:75 degI-40 | | | Front [place]:-59 degT-40 Horizontal [place]:240 degT-40 Front [place]:267 | | | degT Horizontal [place]:91 degT Wave [place]:68 degS-T Horizontal [place]:98 | | | degS-T Front [place]:103 degSeverity:- ABNORMAL ECG -INTERP:SINUS | | | RHYTHMINTERP:NONSPECIFIC IVCD WITH LADINTERP:INFERIOR INFARCT, | | | OLDElectronically signed by: ELIZABETH CAMPBELL 06-12-2018 11:25:24 | | |QTcB:480 ms | | |QTcF:467 ms | | |QRS Horizontal [place]:157 deg | | |QRS [place]:-77 deg | | |I-40 Horizontal [place]:75 deg | | |I-40 Front [place]:-59 deg | | |T-40 Horizontal [place]:240 deg | | |T-40 Front [place]:267 deg | | |T Horizontal [place]:91 deg | | |T Wave [place]:68 deg | | |S-T Horizontal [place]:98 deg | | |S-T Front [place]:103 deg | | |Severity:- ABNORMAL ECG - | | |INTERP:SINUS RHYTHM | | |INTERP:NONSPECIFIC IVCD WITH LAD | | |INTERP:INFERIOR INFARCT, OLD | | |Electronically signed by: ELIZABETH CAMPBELL 06-12-2018 11:25:24 | | + + + + + + + + | Performing | Address | City/State/Zipcode | Phone Number | | Organization | | | | + + + + + | [facility] | [address] | [place] [address] | [phone] | + + + + + Magnesium (06/09/2018 3:07 AM PDT) + + + +--------- ----+ + | Component | Value | Ref Range | Performe d | Pathologist | | | | | At | Signature | + + + +--------- ----+ + | Magnesium | 2.1Comment: Performed | 1.7 - 2.4 mg/dL | [facility] | | | | by [facility] [address], | | SACRED | | | | [place], [place] | | HEART | | | |Performed by [facility] [address], [place], [place] | | MEDICAL | | | [...] + + | PROVIDEDEMIE [facility] | [address] | [place], [place] | | | [facility] [...] ENCE | | | Basophils | by [facility] [address], | K/uL | SACRED | | | | [place] [address] | | HEART | | | |Performed by [facility] [address], [place] [address] | | MEDICA L | | | [...] + | AMILCAR CARDONA | [address] | [place] [address] | | | [facility] | | | | | LABORATORY [...] | 76 (L)Comment: eGFR<60 | >=90 | AMILCAR | | | GFR | consistent with impaired | mL/min/1.73m2 | SACRED | | | | kidney | | HEART | | | | function.Performed by | | MEDICAL | | | | [facility] [address], | | CENTER | | | | [place] [address] | | LABORATORY | | | | [...] + + | AMILCAR [facility] | [address] | [place] [address] | | | [facility] | | | | | LABORATORY [...] | | | | | TroponinPerformed by [facility] | | | | | | [address], | | | | | | [place] [address] | | | | + + + + + + + + | Specimen | + + | Blood specimen | | (specimen) | + + + + + + + | Performing | Address | City/State/Zipcode | Phone Number | | Organization | | | | + + + + + | AMILCAR CARDONA | [address] | [place] [address] | | | [facility] | | | | | LABORATORY [...] | TRACEMASTER | | Duration:200 msP Horizontal [place]:19 degP Front [place]:58 degQ Onset:512 | | | msQRSD Interval:110 msQT Interval:404 msQTcB:506 msQTcF:469 msQRS | | | Horizontal [place]:184 degQRS [place]:265 degI-40 Horizontal [place]:78 degI-40 | | | Front [place]:269 degT-40 Horizontal [place]:240 degT-40 Front [place]:259 | | | degT Horizontal [place]:77 degT Wave [place]:63 degS-T Horizontal [place]:83 | | | degS-T Front [place]:99 degSeverity:- ABNORMAL ECG -INTERP:SINUS | | | RHYTHMINTERP:NONSPECIFIC IVCD WITH LADINTERP:INFERIOR INFARCT, | | | OLDElectronically signed by: ELIZABETH CAMPBELL 06-12-2018 11:24:43 | | |QTcB:506 ms | | |QTcF:469 ms | | |QRS Horizontal [place]:184 deg | | |QRS [place]:265 deg | | |I-40 Horizontal [place]:78 deg | | |I-40 Front [place]:269 deg | | |T-40 Horizontal [place]:240 deg | | |T-40 Front [place]:259 deg | | |T Horizontal [place]:77 deg | | |T Wave [place]:63 deg | | |S-T Horizontal [place]:83 deg | | |S-T Front [place]:99 deg | | |Severity:- ABNORMAL ECG - [...] + | [facility] | [address] | [place] [address] | [phone] | + + + + + Troponin [...] by | | | | | | [facility] [address], | | | | | | [place] [address] | | | | + + + + + + + + | Specimen | + + | Blood specimen | | (specimen) | + + + + + + + | Performing | Address | City/State/Zipcode | Phone Number | | Organization | | | | + + + + + | AMILCAR CARDONA | [address] | [place] [address] | | | [facility] | | | | | RIVERA [...] NOHEMY CE | | | | by [facility] [address], | | SACRED | | | | [place] [address] | | HEART | | | |Performed by [facility] [address], [place] [address] | | MEDICAL | | | | [...] + | AMILCAR CARDONA | [address] | [place] [address] | | | [facility] | | | | | LABORATORY [...] | | MEDICAL | | | | [facility] [address], | | CENTER | | | | [place] [address] | | LABORATORY | | | | [...] SACRED | [address] | [place] [address] | | | [facility] | | | | | LABORATORY [...] | HEART | | | | MATTI Javier at [address] | | MEDICAL [...] | | | | | TroponinPerformed by [facility] | | | | | | [address], | | | | | | [place] [address] | | | | + + + + + + + + | Specimen | + + | Blood specimen | | (specimen) | + + + + + + + | Performing | Address | City/State/Zipcode | Phone Number | | Organization | | | | + + + + + | [facility] | [address] | [place] [address] | | | [facility] | | | | | LABORATORY [...] 0.307 (AA)Comment: | 0.000 - 0.069 | PROVIDEDEMIE | | | | Critical TROP called [...] by | | | | | | [facility] [address], | | | | | | [place] [address] | | | | + + + + + + + + | Specimen | + + | Blood specimen | | (specimen) | + + + + + + + | Performing | Address | City/State/Zipcode | Phone Number | | Organization | | | | + + + + + | YINE [facility] | [address] | [place] [address] | | | [facility] | | | | | RIVERA [...] [facility] | | | | Performed by [facility] [address] | | [address] | | | | [address], [place] | | HEART | | | | [address] | | MEDICAL | | | | [address] | [place] [address] | | | [facility] | [...] | | | | | battery.Performed by [facility] | | | | | | [address], | | | | | | [place] [address] | | | | + + + + + + + + | Specimen | + + | Urine specimen | | (specimen) | + + + + + + + | Performing | Address | City/State/Zipcode | Phone Number | | Organization | | | | + + + + + | YARELISCARLOS BRENDAN | [address] | [place] [address] | | | [facility] | | | | | LABORATORY [...] | | | | | [place].Performed by [facility] [address] | | | | | | [address] [place] | | | | | | [address] | | | | + + + + + + + + | Specimen | + + | Blood specimen | | (specimen) | + + + + + + + | Performing | Address | City/State/Zipcode | Phone Number | | Organization | | | | + + + + + | Y[facility]ELISDE[facility]arly [facility] | [address] | [place] [address] | | | [facility] | | | | | LABORATORY [...] PROVIDENC E | | | SERUM | [facility] [address], | | SACRED | | | | [place] [address] | | HEART | | | |Performed by [facility] [address], [place] [address] | | MEDICAL | | | | [...] + + | AMILCAR CARDONA | [address] | [place] [address] | | | [facility] | | | | | LABORATORY [...] 82 U/L | AMILCAR | | | | [address], | | SACRED | | | | [place] [address] | | HEART | | | |Performed by [facility] [address], [place] | | MEDICAL | | | [...] + | AMILCAR CARDONA | [address] | [place] | | | [facility] [...] | | MEDICAL | | | | [facility] [address], | | CENTER | | | | [place] [address] | | LABORATORY | | | | [...] + + | PROVIDEDEMIE [facility] | [address] | [place] [address] | | | [facility] | | | | | [...] GREWAL | | | | | | JAMINNER | | + + + +------- ------+ [...] ENCE | | | Basophils | by [facility] [address], | K/uL | SACRED | | | | [place] [address] | | HEART | | | |Performed by [facility] [address], [place] [address] | | MEDICA L | | | | | | CENTER | | | | | | LABORA TORShahnaz | | | | | | CERNER | | + + + +------- ------+ + + + | Specimen | + + | Blood specimen | | (specimen) | + + + + + + + | Performing | Address | City/State/Zipcode | Phone Number | | Organization | | | | + + + + + | AMILCAR CARDONA | [address] | [place] [address] | | | [facility] | | | | | [...] | [facility] | | | | by [facility] [address], | | SACRED | | | | [place] [address] | | HEART | | | |Performed by [facility] [address], [place] [address] | | MEDICAL | | | | [...] + | AMILCAR CARDONA | [address] | [place] [address] | | | [facility] | | | | | LABORATORY [...] U/L | [facility] | | | | [facility] [address], | | SACRED | | | | [place] [address] | | HEART | | | |Performed by [facility] [address], [place] [address] | | MEDICAL | | | | [...] + | [facility] | [address] | [place] [address] | | | [facility] | | | | | [...] - 1.030 | [facility] | | | [place] | | | SACRED | | | [...] | | | SOURCE | Performed by [facility] [address] | | SACRED | | | | [address] [place] | | HEART | | | | [address] | | MEDICAL | | | | [...] + | AMILCAR CARDONA | [address] | [place] [address] | | | [facility] | | | | | LABORATORY [...] of | | unspecified type of vessel, kashia or graft | + + | NSTEMI [...] | | | | Mild Pain, Starting [facility] 06/11/18 at | | | | | [...] PDT | | | | | Starting [facility] 06/11/18 at 1635, Give | | | [...] 8:29 | | | | | on [facility] 06/11/18 at 1700, If unable | | [...] DAILY, First dose on Fri | | 18 11:14 | | | [...] | | First dose on Fri06/08/18 at 2100 | | PM PDT | [...] | | | | First dose on [facility] 06/11/18 at 2100 | | PM PDT [...] +-------+ +---------+---+---+ +-------+ +---------+---+---+ | Given | 06/09/20 | [...] | | First dose on Fri06/11/18 at 1900, | | | | | [...] | | | | | | | [facility] 06/11/18 at 1700, Max dose 1000 | [...] | | | | | | Starting [facility] 06/11/18 at 1715, | | | | [...] 18 9:20 | | | | | 06/09/18 [...] PDT | | | | | ONCE, Fri06/10/18 at 0100, For 1 | | | [...] | | | | | | Starting Fri06/10/18 at 0100, | | | | | [...] | | | | | NPO, Daytime 8326-0450 Use NIGHT | | | | | | | DOSE for doses scheduled: | | | | | | | HS, 3AM, Nighttime 7091-9667 Only | | | | | | [...] | ht Upper | | dose on 06/12/18 at 2145, Apply | | AM PDT [...] | | ft | | dose on Fri06/13/18 at 0900, Apply | | AM PDT [...] | | | | last modification) on Fri06/08/18 | | | | | | | [...] PDT | | | | | ONCE, 06/08/18 at 1045, For 1 | | [...] 18 4:15 | | | | | STILL OPERATOR WHISKEY, Starting Marycarmen 06/11/18 at | | AM [...] | | | DAILY, First dose on [facility] 06/11/18 | | AM PDT | [...] | | | | | TITRATED, Starting [facility] 06/11/18 at | | | | | [...] | | | | | | Starting [facility] 06/11/18 at 1636, | | | | [...] | | | | | | Starting [facility] 06/11/18 at 1700, PLUS | | | [...] | | | | | Constipation, Starting [facility] 06/11/18 | | AM PDT | [...] AM PDT | | | | | [place] 06/07/18 at 0905, For 1 dose | [...] | technetium TC-99M sestamibi | Given | 09/04/20 | 7.6 | | | | (CARDIOLITE) injection 7.6 | | 18 8:29 | millicur | | | | millicurie 7.6 millicurie, | | AM PDT | ies | | | | Intravenous, ONCE PRN, Other, | | | | | | | Starting [facility] 06/09/18 at 0829, For | [...] | | | | First dose on [facility] 06/11/18 at | | | | | [...]
--- OUTSIDE RECORDS SUMMARY | ~2019-08-21 | XMS | Encounter Summary ---
Demographics + + + | Address | [address] | | | [place] [address] | + + + | Home Phone | | + + + | Preferred Language | Unknown | + + + | Marital Status | | + + + | Roman Catholic Affiliation | 1041 | + + + | Race | Unknown | + + + | Ethnic Group | Unknown | + + + Author + + + | Author | [facility] | | | and Anktiana | + + + | Organization | [facility] [...] Team Providers + +------+ + | Care Equipment Scheduler Name | Role | Phone | + [...] + + + + | 02/25/ | Telephone | [place] | Vida Romeo | Hospital Follow-up | | 2014 | | Internal Medicine | ELÍAS Sharma | | | | | Hospitalists [address] | | | | [address] [place] | | | | | | [address] | | | | | | [phone] | | | +--------+ + + + [...] | | | | | | [place] [address] | | | | | | [phone] | | | | | | | | +--------+---------+ + + + | 10/28/ | Office | Cardiology | Carol, | | | 2019 | Visit | | SALVATORE Moreno [address] | | | | | | [place], | | | | | | [place] [address] | | | | | | [phone] | | | | | | | | +--------+---------+ + + + documented as of this encounter Visit Diagnoses Not on filedocumented in this encounter"
--- OUTSIDE RECORDS SUMMARY | ~2019-08-21 | XMS | Encounter Summary ---
Demographics + + + | Address | [address] | | | [place] [address] | + + + | Home Phone [...] [facility] | | | and Ankitana | + + + | Organization | [facility] [...] Team Providers + +------+ + | Care Chain Hooker Name | Role | Phone | + [...] | | | | EMERGENCY CENTER | [place] [address] | Shortness of breath | | | | [address] | [phone] | | | | | [place], [place] | | | | | | [address] | | | | | | [phone] | | | +--------+ + + + [...] care to the Emergen [facility] at [facility]. We hope you get better soon. Based [...] sent through Care Everywhere.CHEST PAIN, NON CARDIAC (KYRGYZ)SHORTNESS OF BREATH (DYSPNEA) (KYRGYZ)documented in this encounter Medications at Time of [...] | | | | | [place] [address] | | | | | | [phone] | | | | | | | | +--------+---------+ + + + | 10/28/ | Office | Cardiology | Carol, | | | 2020 | Visit | | SALVATORE Moreno [address] | | | | | | [place], | | | | | | [place] [address] | | | | | | [phone] | | | | | | | [...] + | [facility] | [address] | [place] [address] | | | [facility] | [...] | chest after the administration of 80ml [id number] contrast. | | | 3D MIP thin [...] after the administration of | | 80ml [id number] contrast. 3D MIP thin slab images and [...] + + | [facility] | [address] | [place] [address] | | | [facility] | [...] + + | [facility] | [address] | [place] [address] | | | [facility] | | | | | [...] + | [facility] | [address] | [place] [address] | | | [facility] | [...] + | [facility] | [address] | [place] [address] | | | [facility] | [...] + | [facility] | [address] | [place] [address] | | | [facility] | | | | | [...] [facility] | [address] | [place] [address] | | | [facility] | | | | | [...] + | Presley Dumont Results In - 10/27/2016 12:47 PM PST [...] + | [facility] | [address] | [place] [address] | | | [facility] | [...] + | [facility] | [address] | [place] [address] | | | [facility] | | | | [...] + + | Glucose | 147 (H)Comment: Salvadorean | 65 - 99 mg/dL | [facility] [...] + + | [facility] | [address] | [place] [address] | | | [facility] | | | | | [...] + | [facility] | [address] | [place] [address] | | | [facility] | [...]
--- OUTSIDE RECORDS SUMMARY | ~2019-08-21 | XMS | Encounter Summary ---
Demographics + + + | Address | [address] | | | [place] [address] | + + + | Home Phone [...] [facility] | | | and [place]kit[place] | + + + | Organization | [facility] | | | [...] Team Providers + +------+ + | Care Network Development Coordinator Name | Role | Phone | + +------+ + | Yolanda Lee | PCP | | + +------+ + Encounter Details +--------+ + + + + | Date | Type | Department | Care Team | Description | +--------+ + + + + | 03/09/ | Hospital | [facility] | Jesse Siddiqi MD | Cellulitis and | | 2015 | Encounter | HEART MED CTR OP | [address], | abscess of hand, | | | | INFUSION [address] | 9th floor [place], | except fingers and | | | | Ave [place], [place] | [place] [address] | thumb; Bacteremia | | | | [address] | [phone] | due to Streptococcus | | | | [phone] | | / Sepsis | +--------+ + [...] | | | | | [place] [address] | | | | | | [phone] | | | | | | | | +--------+---------+ + + + | 10/28/ | Office | Cardiology | Carol, | | | 2019 | Visit | | SALVATORE Moreno [address] | | | | | | [place] | | | | | | [place] [address] | | | | | | [phone] | | | | | | | [...]
--- OUTSIDE RECORDS SUMMARY | ~2019-08-21 | XMS | Encounter Summary ---
Demographics + + + | Address | [address] | | | [place] [address] | + + + | Home Phone [...] Author | [facility] | | | and [place]kitana | + + + | Organization | [facility] | | [...] Team Providers + +------+ + | Care Garment Cutter Name | Role | Phone | [...] | | | | | [place] | [address] | | | | | [place] | | | | | | [address] | | | | | | [phone] | | | +--------+ + + + [...] | | | | | | [place] [address] | | | | | | [phone] | | | | | | | | +--------+---------+ + + + | 10/28/ | Office | Cardiology | Carol, | | | 2019 | Visit | | SALVATORE Moreno [address] | | | | | | [place], | | | | | | [place] [address] | | | | | | [phone] | | | | | | | | +--------+---------+ + + + documented as of this encounter Visit Diagnoses Not on filedocumented in this encounter"
--- OUTSIDE RECORDS SUMMARY | ~2019-08-21 | XMS | Encounter Summary ---
Demographics + + + | Address | [address] | | | [place] [address] | + + + | Home Phone [...] Author | [facility] | | | and [place]kitana | + + + | Organization | [facility] | [...] Team Providers + +------+ + | Care Steel Roller Name | Role | Phone | + +------+ + PCP | Unavailable | + +------+ + Encounter Details +--------+ + + + + | Date | Type | Department | Care Team | Description | +--------+ + + + + | 07/04/ | Orders Only | [facility] | Ambrose Matthew, | | | 2007 | | HEART MED CTR | [address] [facility] | | | | | LABORATORY [address] | [place] | | | | | [address] [place] | [address] | | | | | [address] | | | | | | [phone] | | | +--------+ + + + [...] | | | | | | [place] [address] | | | | | | [phone] | | | | | | | | +--------+---------+ + + + | 10/28/ | Office | Cardiology | Carol, | | | 2019 | Visit | | SALVATORE Moreno [address] | | | | | | [place], | | | | | | [place] [address] | | | | | | [phone] | | | | | | | [...] + + + | [facility] | [address] | [place] [address] | | | [facility] | | [...]
--- OUTSIDE RECORDS SUMMARY | ~2019-08-21 | XMS | Encounter Summary ---
Demographics + + + | Address | [address] | | | [place] [address] | + + + | Home Phone | | + + + | Preferred Language | Unknown | + + + | Marital Status | | + + + | Hindu Affiliation | 1041 | + + + | Race | Unknown | + + + | Ethnic Group | Unknown | + + + Author + + + | Author | [facility] | | | and [place]kit[place] | + + + | Organization | [facility] [...] Team Providers + +------+ + | Care Hat Conditioner Name | Role | Phone | + +------+ + | [facility] | PCP | | + +------+ [...] | | | | | Cardiomyopat | [address] | [address] | | | | | hy (HCC) | [address] | [address] | | | | | Procedures | [address] | [place] | | | | | ECHO | [place], | [address] | | | | | Complete | [place] | Phone: | | | | | | [address] | [phone] | | | | | | | Fax: | | | | | | | [phone] | +--------+--------+ + + + + Reason for Visit Diagnostic/Screening (Routine) +--------+--------+ + + + + [...] | | | | | Cardiomyopat | [place] | [address] | | | | | hy (HCC) | [address] | [address] | | | | | Procedures | [address] | [place] | | | | | ECHO | [place], | [address] | | | | | Complete | [place] | Phone: | | | | | | [address] | [phone] | | | | | | | Fax: | | | | | | | [phone] | +--------+--------+ + + + + Encounter Details +--------+ + + + + | Date | Type | Department | Care Team | Description | +--------+ + + + + | 01/13/ | Hospital | [facility] | Mani Thompson MD | Cardiomyopathy (HCC) | | 2013 | Encounter | HEART CARDIOVASCULAR | [address] | | | | | IMAGING CENTER | [address] | | | | | [facility] | [place] | | | | | [address] | [address] | | | | | [place] | | | | | | [address] | | | | | | [phone] | | | +--------+ + + + [...] +---------+ + + | nitroglycerin | Place 1 tablet under | 100 | 0 | 01/14/20 | | | (NITROSTAT) 0.4 mg | the tongue every 5 | tablet | | 14 | 5 | | SL | minutes as needed. | | | | | | tabletIndications: | Arlyn repeat x 3 | | | | | | Coronary | tablets total. IF CP | | | | | | atherosclerosis of | not relieved pt 3 | | | | | | unspecified type of | tablets call 911 | | | | | | vessel, [place] or | | | | | | | graft | | | | | | + [...] | | | | | [place] [address] | | | | | | [phone] | | | | | | | | +--------+---------+ + + + | 10/28/ | Office | Cardiology | Carol, | | | 2019 | Visit | | SALVATORE Moreno [address] | | | | | | [place] | | | | | | [place] [address] | | | | | | [phone] | | | | | | | | +--------+---------+ + + + documented as of this encounter Procedures + +--------+ + + + | Procedure Name | Priori | Date/Time | Associated Diagnosis | Comments | | | ty | | | | + +--------+ + + + | ECHO COMPLETE | Routin | 01/13/2014 | Cardiomyopathy | Results for this | | | e | 4:30 PM | (HCC) | procedure are in the | | | | PDT | | results section. | + +--------+ + + + documented in this encounter Results ECHO Complete (01/13/2014 4:30 PM PDT) + + | Specimen | + + | | + + + + -+ | Narrative | Performed At | + + -+ | | [facility] | | LAB | | Adult | | | Echo | | | | | | Report Name: ANNE MARIE PICHARDO | | | Date: 01/13/2014MRN: [id number] Patient Location: [place] | | | [facility] Institute[facility]OB[facility] 1955 Age: 58 yrs | | | Gender: FemaleHeight: 68 in | | | Weight: 156 lb BSA: 1.8 meters2 | | | HR: 64 | | | Rhythm: SinusHistory: Coronary artery disease with prior | | | infarction and cardiac arrest,prior echo 05/2013 shows inferior [place], | | | EF= 40% Reason For [...] MANI THOMPSONReferring Physician: Yolanda | | | Castillo Leecardiographer: Edson [id number]: | | |Great Vessels: | | |The [...] | |Referring Physician: SALVATORE Maldonado | | |Pile Fabric Knitter: Edson Jimenez | | |[id number]: | | | | | + + -+ + + | Procedure Note | + + | Tim, Rad Results In - 01/14/2014 8:09 AM PDT | | Adult | | Echo | | Report | | | | Name: ANNE MARIE PICHARDO Date: 01/13/2014 | | Patient Location: [facility] | | : 1955 Age: 58 yrs Gender: Female | | Height: 68 in Weight: 156 lb BSA: 1.8 meters2 | | HR: 64 Rhythm: Sinus | | History: Coronary artery disease with prior infarction and cardiac arrest, | | prior echo 05/2013 shows inferior [place], EF= 40% | | | | Reason [...] | Referring Physician: SALVATORE Maldonado | | Pile Fabric Knitter: Edson Jimenez | | [id number]: | + + + + | Transcriptions | + + | Flora Whitejesus - 01/14/2014 12:00 AM PDT | + + + +---------+ + + | Performing | Address | City/State/Zipcode | Phone Number | | Organization | | | | + +---------+ + + | [facility] | | | [phone] | + +---------+ + + | [facility] | | | [phone] | + +---------+ + + documented in this encounter Visit Diagnoses + + | Diagnosis | + + | Cardiomyopathy (HCC) Other primary cardiomyopathies | + + documented in this encounter"
--- OUTSIDE RECORDS SUMMARY | ~2019-08-21 | XMS | Encounter Summary ---
Demographics + + + | Address | [address] | | | [place] [address] | + + + | Home Phone [...] | Author | [facility] | | | and [place]kit[place] | + + + | Organization | [facility] [...] Team Providers + +------+ + | Care Meat Inspector Name | Role | Phone | + +------+ + | [facility] | PCP | | + +------+ [...] | | | | | Cardiomyopat | [place] | [address] | | | | | hy (HCC) | [address] | [address] | | | | | Procedures | [address] | [place] | | | | | ECHO | [place], | [address] | | | | | Complete | [place] | Phone: | | | | | | [address] | [phone] | | | | | | | Fax: | | | | | | | [phone] | +--------+--------+ + + + + Reason [...] | | | | | Cardiomyopat | [place] | [address] | | | | | hy (HCC) | [address] | [address] | | | | | Procedures | [address] | [place] | | | | | ECHO | [place], | [address] | | | | | Complete | [place] | Phone: | | | | | | [address] | [phone] | | | | | | | Fax: | | | | | | | [phone] | +--------+--------+ + + + + Encounter Details +--------+ + + + + | Date | Type | Department | Care Team | Description | +--------+ + + + + | 01/13/ | Hospital | [facility] | Mani Thompson MD | Cardiomyopathy (HCC) | | 2013 | Encounter | HEART CARDIOVASCULAR | [address] [place] [address] | | | | | IMAGING CENTER | [address] | | | | | [facility] | [place] | | | | | [address] | [address] | | | | | [place] | | | | | | [address] | | | | | | [phone] | | | +--------+ + + + [...] | | | | | | vessel, [place] or | | | | | | [...] | | | | | [place] [address] | | | | | | [phone] | | | | | | | | +--------+---------+ + + + | 10/28/ | Office | Cardiology | Carol, | | | 2019 | Visit | | SALVATORE Moreno [address] | | | | | | [place] | | | | | | [place] [address] | | | | | | [phone] | | | | | | | [...] MARIE PICHARDO | | | Date: 01/13/2014MRN: [id number] Patient Location: [place] | | | [facility] InstituteDOB: 1955 Age: 58 yrs | | | Gender: FemaleHeight: 68 in | | | Weight: 156 lb BSA: 1.8 meters2 | | | HR: 64 | | | Rhythm: SinusHistory: Coronary artery disease with prior | | | infarction and cardiac arrest,prior echo 05/2013 shows inferior [place], | | | EF= 40% Reason For [...] Yolanda | | | Castillo Leecardiographer: Edson [id number]: | | |Great Vessels: | | |The [...] | |Referring Physician: SALVATORE Maldonado | | |Hog Raiser: Edson Jimenez | | |[id number]: | | | | | + + -+ + + | Procedure Note | + + | Tim, Rad Results In - 01/14/2014 8:09 AM PDT | | Adult | | Echo | | Report | | | | Name: ANNE MARIE PICHARDO Date: 01/13/2014 | | Patient Location: [facility] | | : 1955 Age: 58 yrs Gender: Female | | Height: 68 in Weight: 156 lb BSA: 1.8 meters2 | | HR: 64 Rhythm: Sinus | | History: Coronary artery disease with prior infarction and cardiac arrest, | | prior echo 05/2013 shows inferior [place], EF= 40% | | | | Reason [...] | Referring Physician: SALVATORE Maldonado | | Hog Raiser: Edson Jimenez | | [id number]: | + + + + | Transcriptions | + + | Flora Whitejesus - 01/14/2014 12:00 AM PDT | + + + +---------+ + + | Performing | Address | City/State/Zipcode | Phone Number | | Organization | | | | + +---------+ + + | [facility] | | | [phone] | + +---------+ + + | [facility] | | | [phone] | + +---------+ + + documented in this encounter Visit Diagnoses + + | Diagnosis | + + | Cardiomyopathy (HCC) Other primary cardiomyopathies | + + documented in this encounter"
--- OUTSIDE RECORDS SUMMARY | ~2019-08-21 | XMS | Encounter Summary ---
Demographics + + + | Address | [address] | | | [place] [address] | + + + | Home Phone [...] | Author | [facility] | | | and [place]kitana | + + + | Organization | [facility] [...] Team Providers + +------+ + | Care Cargo Agent Name | Role | Phone | + +------+ + | Yolanda Lee | PCP | | + +------+ + Encounter Details +--------+ + + + + | Date | Type | Department | Care Team | Description | +--------+ + + + + | 02/27/ | Hospital | [facility] | Jesse Siddiqi MD | Cellulitis and | | 2015 | Encounter | HEART MED CTR | [address], | abscess of hand, | | | | CARDIAC MEDICAL [address] | 9th floor [place], | except fingers and | | | | [address] [place], | [place] [address] | thumb; Bacteremia | | | | [place] [address] | [phone] | due to Streptococcus | | | | [phone] | | / Sepsis | +--------+ + [...] | | | | | [place] [address] | | | | | | [phone] | | | | | | | | +--------+---------+ + + + | 10/28/ | Office | Cardiology | Carol, | | | 2019 | Visit | | KELLEY MorenoP [address] | | | | | | [place], | | | | | | [place] [address] | | | | | | [phone] | | | | | | | [...] 2 g in | New Bag | 02/28/20 | 2 g | 100 | | [...]
--- OUTSIDE RECORDS SUMMARY | ~2019-08-21 | XMS | Encounter Summary ---
Demographics + + + | Address | [address] | | | [place] [address] | + + + | Home Phone [...] + | Author | [facility] | | | and Ankitana | + + + | Organization | [facility] | [...] Team Providers + +------+ + | Care Ceramic Engineering Professor Name | Role | Phone | + +------+ + | [facility] | PCP | | + [...] | | | | | Cardiomyopat | [place] | [address] | | | | | hy (HCC) | [address] | [address] | | | | | Procedures | [address] | [place], [place] | | | | | ECHO | [place], | [address] | | | | | Complete | [place] | Phone: | | | | | | [address] | [phone] | | | | | | | Fax: | | | | | | | [phone] | +--------+--------+ + + + + Reason [...] [address] | | | | | [place] | [address] | [place], | | | | | coronary | [address] | [place] [address] | | | | | artery | [place] | | | | | | 06/18/2013 fm | [address] | | | | | | per SKL dx | | | | | | | of 414.01 | | | | | | | Coronary | | | | | | | atherosclero | | | | | | | sis [place] | | | | | | | [...] | | 2013 | Visit | [facility] | [address] | disease (Primary | | | | HI4 [address] | [address] | Dx); Cardiomyopathy | | | | [address] [place], [place] | [place] | ([facility]); Ischemic | | | | [address] | [address] | cardiomyopathy; | | | | [phone] | | Hypertension; | | | | [...] medications. I will repeat another echo to [facility] her LVEF for further improvement. PATIENT NAME: Anne Marie Pichardo : 1955: AGE: 58 y.o. PRIMARY CARE: [facility] CHIEF COMPLAINT: Chief Complaint Patient presents with [...] medications. I will repeat another echo to [facility] her LVEF for further improvement. FOLLOWUP No [...] MD, FACC 01/13/2014, 15:08 [facility] Plan of Treatment +--------+---------+ + + + | Date | Type | Specialty | Care Team | Description | +--------+---------+ + + + | 09/01/ | Office | Gastroenterology | Aba Gonsalez | | | 2018 | Visit | | MD George [address] | | | | | | [place] | | | | | | [place] [address] | | | | | | [phone] | | | | | | | | +--------+---------+ + + + | 10/28/ | Office | Cardiology | Carol, | | | 2019 | Visit | | SALVATORE Moreno [address] | | | | | | [place] | | | | | | [place] [address] | | | | | | [phone] | | | | | | | [...] MARIE PICHARDO | | | Date: 01/13/2014MRN: [id number] Patient Location: [place] | | | [facility] InstituteDOB: 1955 Age: 58 yrs | | | Gender: FemaleHeight: 68 in | | | Weight: 156 lb BSA: 1.8 meters2 | | | HR: 64 | | | Rhythm: SinusHistory: Coronary artery disease with prior | | | infarction and cardiac arrest,prior echo 05/2013 shows inferior [place], | | | EF= 40% Reason For [...] mmHg Interpreting | | | Physician: Mani Thomposn MDelectronically signed on 01/14/2014 08:08 | | | AMOrdering Physician: MANI THOMPSONReferring Physician: Yolanda | | | Zoila Leehocardiographer: Edson Cárdenas [id number]: | | |Great Vessels: | | |The [...] | |Referring Physician: SALVATORE Maldonado | | |Lift Mechanic: Edson Jimneez | | |[id number]: | | | | | + + -+ + + | Procedure Note | + + | Tim, Rad Results In - 01/14/2014 8:09 AM PDT | | Adult | | Echo | | Report | | | | Name: ANNE MARIE PICHARDO Date: 01/13/2014 | | Patient Location: [facility] | | : 1955 Age: 58 yrs Gender: Female | | Height: 68 in Weight: 156 lb BSA: 1.8 meters2 | | HR: 64 Rhythm: Sinus | | History: Coronary artery disease with prior infarction and cardiac arrest, | | prior echo 05/2013 shows inferior [place], EF= 40% | | | | Reason [...] | Referring Physician: SALVATORE Maldonado | | Lift Mechanic: Edson Jimenez | | [id number]: | + + + + | Transcriptions | + + | Omi White - 01/14/2014 12:00 AM PDT | + + + +---------+ + + | Performing | Address | City/State/Zipcode | Phone Number | | Organization | | | | + +---------+ + + | [facility] | | | [phone] | + +---------+ + + | [facility] | | | [phone] | + +---------+ + + documented in this encounter Visit Diagnoses + + | Diagnosis | + + | Coronary artery disease - Primary Coronary atherosclerosis of unspecified type of | | vessel, [place] or graft | + + | Cardiomyopathy (HCC) Other primary cardiomyopathies | + + | Ischemic cardiomyopathy Other specified forms of chronic ischemic heart disease | + + | Hypertension Unspecified essential hypertension | + + | Dyslipidemia Other and unspecified hyperlipidemia | + + documented in this encounter
--- OUTSIDE RECORDS SUMMARY | ~2019-08-21 | XMS | Encounter Summary ---
Demographics + + + | Address | [address] | | | [place] [address] | + + + | Home Phone | | + + + | Preferred Language | Unknown | + + + | Marital Status | | + + + | Yazidism Affiliation | 1041 | + + + | Race | Unknown | + + + | Ethnic Group | Unknown | + + + Author + + + | Author | [facility] | | | and Ankitana | + + + | Organization | [facility] | | | and [...] Providers + +------+ + | Care Yarn Preparation Supervisor Name | Role | Phone | + +------+ + | Yolanda Lee | PCP | | + +------+ + Encounter Details +--------+---------+ + + + | Date | Type | Department | Care Team | Description | +--------+---------+ + + + | 08/13/ | Surgery | [facility] | Seamus Richard, | LEFT EXTRACTION | | 2018 | | MED CTR OR INTRA OP | MD [address] | CATARACT WITH LENS | | | | [address] | [place], [place] | IMPLANT | | | | [place], [place] | [address] | | | | | [address] | | | | | | [phone] | | | +--------+---------+ + + + [...] | | | | | | [place] [address] | | | | | | [phone] | | | | | | | | +--------+---------+ + + + | 10/28/ | Office | Cardiology | Carol, | | | 2019 | Visit | | SALVATORE Moreno [address] | | | | | | [place], | | | | | | [place] [address] | | | | | | [phone] | | | | | | | [...] | | | | LARA WOODS MD ([id number]) | | | | | | on [...] | | GLOMERULAR FILTRATION | mL/min/1.73m2 | [facility] | | | [place] | RATE,ESTIMATED | | MEDICAL | | | | mL/min/1.46j6Cvau than | | CENTER - | | [...] + | [facility] | [address] | [place] | [phone] | | [facility] | | [address] | | | - LABORATORY | | [...] | [address] | [place] | [phone] | | [facility] | | [address] | | | - LABORATORY | | [...] ONCE PRN, Wheezing, | | | Starting [facility] 08/13/18 at 1222, | | | For [...] | | | | | | Starting [facility] 08/13/18 at 1034, For | | [...] | | Surgical | | PRN, Starting [facility] 08/13/18 at | | 18 12:17 | [...] | | | | First dose on [facility] 08/13/18 at | | | | [...] | | | | kit PRN, Starting [facility] 08/13/18 | | PM PST | | | | | at 1217, Intra-op | | | | | | + +-------+ +-------+---+---+ +---+---+ | | | +---+---+ + +---------+ +---+-------+---+ | lactated ringers (LR) infusion | New Bag | 08/13/20 | | 100 | | | at 10-100 mL/hr, Intravenous, | | 18 10:59 | | mL/hr | | | CONTINUOUS, Starting [facility] 08/13/18 | | AM PST | | | | | at 1100, TKO., Pre-op | | | | | | + +---------+ +---+-------+---+ +---+---+ | | | +---+---+ + +-------+ +-------+---+ + | lidocaine (PF) 1% injection | Given | 08/13/20 | 2 mLs | | Surgical | | PRN, Starting [facility] 08/13/18 at | | 18 12:13 | | | Site | | 1213, Intra-op | | PM PST | | | | + +-------+ +-------+---+ + +---+---+ | | | +---+---+ + +-------+ +------+---+ + | lidocaine (PF) 2% injection | Given | 08/13/20 | 1 mL | | Surgical | | PRN, Starting [facility] 08/13/18 at | | 18 11:56 [...] 12:31 | | | | | Starting [facility] 08/13/18 at 1231, | | PM PST | | | | | Intra-op | | | | | | + +-------+ +--------+---+ + + +---+ | | | + +---+ | ondansetron (ZOFRAN) injection | | | 4 mg 4 mg, Intravenous, ONCE | | | PRN, Nausea, Starting [facility] 08/13/18 | | | at 1222, For 1 dose, | | | Recovery/Phase I | | + +---+ | | | + +---+ | phenylephrine (HADLEY-SYNEPHRINE) | | | 10 % ophthalmic solution 1 drop | | | 1 drop, Left Eye, EVERY 5 MIN | | | PRN, Other, prep eye for | | | procedure, Starting [facility] 08/13/18 | | | at 1034, [...] | | | | | PRN, Starting [facility] 08/13/18 at | | PM PST [...]
--- OUTSIDE RECORDS SUMMARY | ~2019-08-21 | XMS | Encounter Summary ---
Demographics + + + | Address | [address] | | | [place] [address] | + + + | Home Phone | | + + + | Preferred Language | Unknown | + + + | Marital Status | | + + + | Confucianist Affiliation | 1041 | + + + | Race | Unknown | + + + | Ethnic Group | Unknown | + + + Author + + + | Author | [facility] | | | and Ankitana | + + + | Organization | [facility] | | [...] Team Providers + +------+ + | Care Electric Razor Mechanic Name | Role | Phone | [...] MD Rock | | | | | [place] [address] | | | | | [address] | [place] | | | | | [place] | [address] | | | | | [address] | | | | | | [phone] | | | +--------+ + + + [...] | | | | | | [place] [address] | | | | | | [phone] | | | | | | | | +--------+---------+ + + + | 10/28/ | Office | Cardiology | Carol, | | | 2019 | Visit | | SALVATORE Moreno [address] | | | | | | [place], | | | | | | [place] [address] | | | | | | [phone] | | | | | | | | +--------+---------+ + + + documented as of this encounter Visit Diagnoses Not on filedocumented in this encounter"
--- OUTSIDE RECORDS SUMMARY | ~2019-08-21 | XMS | Encounter Summary ---
Demographics + + + | Address | [address] | | | [place] [address] | + + + | Home Phone [...] | Author | [facility] | | | and Ankitana | + + + | Organization | [facility] | | [...] Team Providers + +------+ + | Care Heating Element Winder Name | Role | Phone | [...] [address] | | | | | [place] [address] | [facility] | | | | | [facility] | [place] [address] | | | | | [place] | [phone] | | | | | [address] | | | | | | [phone] | | | +--------+ + + + [...] | | | | | | [place] [address] | | | | | | [phone] | | | | | | | | +--------+---------+ + + + | 10/28/ | Office | Cardiology | Carol, | | | 2019 | Visit | | SALVATORE Moreno [address] | | | | | | [place], | | | | | | [place] [address] | | | | | | [phone] | | | | | | | [...] + + + | Exam Performed Location: [facility] | MISCELANIOUS | | RIGHT UPPER [...] 07/31/2013 10:22 AM PDT Exam Performed Location: [facility] | | at [facility] UPPER EXTREMITY VENOUS EXAM FOR DVTCLINICAL | [...] phoned | | [facility].The radiologist/surgeon | | [...] + | MISCELLANEOUS LAB | | | [phone] | + +---------+ + + | MISCELANIOUS LAB | | | [phone] | + +---------+ + + Historical Imaging Result (09/14/2008 10:41 AM PST) + + | Specimen | + + | | + + + + + | Narrative | Performed At | + + + | Exam Performed Location: [facility] | MISCELANIOUS | | RIGHT UPPER [...] 07/31/2013 10:19 AM PDT Exam Performed Location: [facility] | | at [facility] UPPER EXTREMITY ARTERIALCLINICAL INFORMATION:The patient | | [...] + + | Performing | Address | City[facility] | Phone Number | | Organization | | | | + +---------+ + + | MISCELLANEOUS LAB | | | [phone] | + +---------+ + + | MISCELANIOUS LAB | | | [phone] | + +---------+ + + documented in this encounter Visit Diagnoses Not on filedocumented in this encounter"
--- OUTSIDE RECORDS SUMMARY | ~2019-08-21 | XMS | Encounter Summary ---
Demographics + + + | Address | [address] | | | [place] [address] | + + + | Home Phone [...] Author | [facility] | | | and Ankitana | + + + | Organization | [facility] | | | and [...] Team Providers + +------+ + | Care Promotion Writer Name | Role | Phone | + +------+ + | Yolanda Lee | PCP | | + +------+ + Encounter Details +--------+ + + + + | Date | Type | Department | Care Team | Description | +--------+ + + + + | 03/02/ | Hospital | [facility] | Jesse Siddiqi MD | Cellulitis and | | 2015 | Encounter | [facility] OP | [address], | abscess of hand, | | | | INFUSION [address] | [address] floor [place], | except fingers and | | | | [address] [place], [place] | [place] [address] | thumb; Bacteremia | | | | [address] | [phone] | due to Streptococcus | | | | [phone] | | / Sepsis | +--------+ + [...] | | | | | [place] [address] | | | | | | [phone] | | | | | | | | +--------+---------+ + + + | 10/28/ | Office | Cardiology | Carol, | | | 2019 | Visit | | SALVATORE Moreno [address] | | | | | | [place] | | | | | | [place] [address] | | | | | | [phone] | | | | | | | [...]
--- OUTSIDE RECORDS SUMMARY | ~2019-08-21 | XMS | Encounter Summary ---
Demographics + + + | Address | [address] | | | [place] [address] | + + + | Home Phone [...] + | Author | [facility] | | | and Ankitana | + + + | Organization | [facility] | [...] Providers + +------+ + | Care Technical Testing Engineer Name | Role | Phone | [...] [address] | | | | | [place] [address] | [facility] | | | | | [facility] | [place] [address] | | | | | [place] | [phone] | | | | | [address] | | | | | | [phone] | | | +--------+ + + + [...] | | | | | [place] [address] | | | | | | [phone] | | | | | | | | +--------+---------+ + + + | 10/28/ | Office | Cardiology | Carol, | | | 2019 | Visit | | SALVATORE Moreno [address] | | | | | | [place], | | | | | | [place] [address] | | | | | | [phone] | | | | | | | | +--------+---------+ + + + documented as of this encounter Visit Diagnoses Not on filedocumented in this encounter"
--- OUTSIDE RECORDS SUMMARY | ~2019-08-21 | XMS | Encounter Summary ---
Demographics + + + | Address | [address] | | | [place] [address] | + + + | Home Phone [...] | Author | [facility] | | | and Ankitana | + + + | Organization | [facility] | | | and [...] Team Providers + +------+ + | Care Data Abstractor Name | Role | Phone | + [...] | | | | | [place] | [address] | | | | | [place] | | | | | | [address] | | | | | | [phone] | | | +--------+ + + + [...] | | | | | | [place] [address] | | | | | | [phone] | | | | | | | | +--------+---------+ + + + | 10/28/ | Office | Cardiology | Carol, | | | 2019 | Visit | | SALVATORE Moreno [address] | | | | | | [place], | | | | | | [place] [address] | | | | | | [phone] | | | | | | | | +--------+---------+ + + + documented as of this encounter Visit Diagnoses Not on filedocumented in this encounter"
--- OUTSIDE RECORDS SUMMARY | ~2019-08-21 | XMS | Encounter Summary ---
Demographics + + + | Address | [address] | | | [place] [address] | + + + | Home Phone [...] | Author | [facility] | | | and Ankitana | + + + | Organization | [facility] | | | and Ankitana [...] Team Providers + +------+ + | Care Analysis Director Name | Role | Phone | [...] | | | Services | Medicine | APTRICE | Carol, | MD Jessy | | | Required | | (obstructive | SALVATORE Moreno | [address] | | | | | sleep | [address] [place] | | | | | apnea) | [place] | [place], [place] | | | | | | [place], | [address] Phone: | | | | | | [place] | [phone] | | | | | | [address] | Fax: | | | | | | Phone: | [phone] | | | | | | [phone] | | | | | | | Fax: | | | | | | | [phone] | | +--------+ + + + + [...] + | 10/22/ | Office | [facility] | Carol, | Hypertension, | | 2019 | Visit | CARDIOLOGY [address] | SALVATORE Moreno [address] | unspecified type | | | | [place], | [place], | (Primary Dx); | | | | [place] [address] | [place] [address] | Ischemic | | | | [phone] | [phone] | cardiomyopathy; | | | | | [...] chronic, stage II (GFR 60-89 ml/min) H/O SC (myocardial infarction) Hepatitis C Risk factors for [...] Abnormal ECG Confirmed by MARIANGEL WALTON MD ([id number]) on 10/01/2018 12:13:49 PM none done today [...] arrest post unknown stenting in 2011 at [facility] in [place] B. Echocardiogram 2D , M-mode, Doppler and [...] the inferior and lateral castillo from prior SC, mild destinee infarct ischemia. LARGE SEVERE inferior and Lateral SC. By Shad Schuler MD G. Left heart [...] unction. Trace TR, pulmonic valve normal Trace IA, visible portions of ascending aorta and a [...] She is in class II of the [place] [employer] functional class. [...] 1. She will have echocardiogram checked in [facility] 2. Increase Metoprolol XL 100 mg [...] ejection fraction. [facility]. Portions of this chart may have been created with Recomm[employer] voice recognition software. Occasi onal wrong-word or [...] | | | | | [place] [address] | | | | | | [phone] | | | | | | | | +--------+---------+ + + + | 10/28/ | Office | Cardiology | Carol, | | | 2019 | Visit | | SALVATORE Moreno [address] | | | | | | [place], | | | | | | [place] [address] | | | | | | [phone] | | | | | | | | +--------+---------+ + + + + + +--------+ + + | Name | Type | Priori | Associated Diagnoses | Order Schedule | | | | ty | | | + + +--------+ + + | * [facility] | Outpatient | Routin [...] of unspecified type of | | vessel, confederated goshute or graft | + + | PATRICE (obstructive sleep apnea) Obstructive sleep apnea (adult) (pediatric) | + + documented in this encounter
--- OUTSIDE RECORDS SUMMARY | ~2019-08-21 | XMS | Encounter Summary ---
Demographics + + + | Address | [address] | | | [place] [address] | + + + | Home Phone [...] | Author | [facility] | | | and Ankitana | + + + | Organization | [facility] | | | and [...] Providers + +------+ + | Care Kitchen Cleaner Name | Role | Phone | [...] | | | EMERGENCY CENTER | [address]VE [place], [place] | | | | | [address] | [address] | | | | | [place], [place] | | | | | | [address] | | | | | | [phone] | | | +--------+ + + + [...] through Care Everywhere.ABSCESS, ANTIBI OTIC TREATMENT ONLY (SLOVENIAN)documented in this encounter Medications at Time of [...] Gastroenterology | Wallace, Aba | | | 2019 | Visit | | MD George [address] | | | | | | [address] | | | | | | [place] [address] | | | | | | [phone] | | | | | | | | +--------+---------+ + + + | 10/28/ | Office | Cardiology | Carol, | | | 2019 | Visit | | SALVATORE Moreno [address] | | | | | | [place], | | | | | | [place] [address] | | | | | | [phone] | | | | | | | [...] + | AMILCAR CARDONA | [address] | [place] [address] | | | [facility] | | | | | [...] | | | | | Intramuscular, ONCE, Marycarmen 12/26/16 | | | | | | [...] | | | | | Oral, ONCE, Marycarmen 12/26/16 at 0450, | | AM PDT [...] PDT | | | | | ONCE, [facility] 12/26/16 at 0450, For 1 | [...]
--- OUTSIDE RECORDS SUMMARY | ~2019-08-21 | XMS | Encounter Summary ---
Demographics + + + | Address | [address] | | | [place] [address] | + + + | Home Phone [...] | Author | [facility] | | | and Ankitana | + + + | Organization | [facility] | | | and [...] Team Providers + +------+ + | Care Physical Science Technician Name | Role | Phone | [...] | +--------+ + + + + | 12/30/ | Telephone | Agnies[facility] | Balta Fuentes | Hospital Follow-up | | 2014 | | Internal Medicine | MD [address] | | | | | Hospitalists [address] | | | | | [address] [place], [place] | [place] [address] | | | | | [address] | [phone] | | | | | [phone] | | | +--------+ + + + [...] | | | | | [place] [address] | | | | | | [phone] | | | | | | | | +--------+---------+ + + + | 10/28/ | Office | Cardiology | Carol, | | | 2019 | Visit | | SALVATORE Moreno [address] | | | | | | [place] | | | | | | [place] [address] | | | | | | [phone] | | | | | | | | +--------+---------+ + + + documented as of this encounter Visit Diagnoses Not on filedocumented in this encounter"
--- OUTSIDE RECORDS SUMMARY | ~2019-08-21 | XMS | Encounter Summary ---
Demographics + + + | Address | [address] | | | [place] [address] | + + + | Home Phone [...] Author | [facility] | | | and Anktiana | + + + | Organization | [facility] | [...] Team Providers + +------+ + | Care Clerk Typist Name | Role | Phone | + [...] + + | 08/30/ | Telephone | [place] | Vida Romeo | Hospital Follow-up | | 2015 | | Internal Medicine | ELÍAS Sharma | | | | | Hospitalists [address] | | | | | | [address] [place] [address] | | | | | | [address] | | | | | | [phone] | | | +--------+ + + + [...] | | | | | | [place] [address] | | | | | | [phone] | | | | | | | | +--------+---------+ + + + | 10/28/ | Office | Cardiology | Carol, | | | 2019 | Visit | | SALVATORE Moreno [address] | | | | | | [place] | | | | | | [place] [address] | | | | | | [phone] | | | | | | | [...]
--- OUTSIDE RECORDS SUMMARY | ~2019-08-21 | XMS | Encounter Summary ---
Demographics + + + | Address | [address] | | | [place] [address] | + + + | Home Phone | | + + + | Preferred Language | Unknown | + + + | Marital Status | | + + + | Quaker Affiliation | 1041 | + + + | Race | Unknown | + + + | Ethnic Group | Unknown | + + + Author + + + | Author | [facility] | | | and Ankitana | + + + | Organization | [facility] | | | and Ankitana | [...] Team Providers + +------+ + | Care Cloud Engagement Partner Name | Role | Phone | + +------+ + | Yolanda Lee | PCP | | + +------+ + Encounter Details +--------+ + + + + | Date | Type | Department | Care Team | Description | +--------+ + + + + | 03/01/ | Hospital | [facility] | Jesse Siddiqi MD | Cellulitis and | | 2015 | Encounter | [facility] MED [facility] OP | [address], | abscess of hand, | | | | INFUSION [address] | 9th floor [place], | except fingers and | | | | [address] [place], [place] | [place] [address] | thumb; Bacteremia | | | | [address] | [phone] | due to Streptococcus | | | | [phone] | | / Sepsis | +--------+ + [...] + + + | Blood Pressure | 167/91 | 03/01/2015 4:55 PM | | | | | PDT | | + + + + + | Pulse | 97 | 03/01/2015 5:00 PM | | | | | PDT | | + + + + + | Temperature | 36 C (96.8 F) | 03/01/2015 5:00 PM | | | | | PDT | | + + + + + | Respiratory Rate | 16 | 03/01/2015 4:55 PM | | | | | PDT [...] documented as of this encounter Progress Notes Maegan Garcia RN - 03/01/2015 4:54 PM PDTHere for infusion documented in this [...] | | | | | [place] [address] | | | | | | [phone] | | | | | | | | +--------+---------+ + + + | 10/28/ | Office | Cardiology | Carol, | | | 2019 | Visit | | SALVATORE Moreno [address] | | | | | | [place] | | | | | | [place] [address] | | | | | | [phone] | | | | | | | [...] 2 g in | New Bag | 03/01/20 | 2 g | 100 | | | sodium chloride 0.9% 50 mL IVPB | | 15 5:00 | | mL/hr | | | 2 g, Intravenous, Administer over | | PM PDT | | | | | 30 Minutes, EVERY 24 HOURS | | | | | | | (Daily), First dose on Fri | | | | | | | 03/01/15 at 1710, For 14 days, | | [...]
--- OUTSIDE RECORDS SUMMARY | ~2019-08-21 | XMS | Encounter Summary ---
Demographics + + + | Address | [address] | | | [place] [address] | + + + | Home Phone [...] | Author | [facility] | | | and Ankitana | + + + | Organization | [facility] | | | and [...] Team Providers + +------+ + | Care Marking Stitcher Name | Role | Phone | + [...] MD Rock | | | | | [address] | [address] | | | 08/20/ | | [address] | [address] [place] | | | [address] | | [place] | [address] | | | | | [address] | | | | | | [phone] | | | +--------+ + + + [...] | | | | | [place] [address] | | | | | | [phone] | | | | | | | | +--------+---------+ + + + | 10/28/ | Office | Cardiology | Carol, | | | 2019 | Visit | | SALVATORE Moreno [address] | | | | | | [place], | | | | | | [place] [address] | | | | | | [phone] | | | | | | | | +--------+---------+ + + + documented as of this encounter Visit Diagnoses Not on filedocumented in this encounter"
--- OUTSIDE RECORDS SUMMARY | ~2019-08-21 | XMS | Encounter Summary ---
Demographics + + + | Address | [address] | | | [place] [address] | + + + | Home Phone | | + + + | Preferred Language | Unknown | + + + | Marital Status | | + + + | Episcopalian Affiliation | 1041 | + + + | Race | Unknown | + + + | Ethnic Group | Unknown | + + + Author + + + | Author | [facility] | | | and Ankitana | + + + | Organization | [facility] | | | [...] Team Providers + +------+ + | Care Glass Pulverizer Equipment Operator Name | Role | Phone | + +------+ + | Yolanda Lee | PCP | | + +------+ + Encounter Details +--------+ + + + + | Date | Type | Department | Care Team | Description | +--------+ + + + + | 02/27/ | Hospital | [facility] | Jesse Siddiqi MD | Cellulitis and | | 2015 | Encounter | HEART MED CTR | [address], | abscess of hand, | | | | CARDIAC MEDICAL [address] | [address] floor [place], | except fingers and | | | | [address] [place], | [place] [address] | thumb; Bacteremia | | | | [place] [address] | [phone] | due to Streptococcus | | | | [phone] | | / Sepsis | +--------+ + [...] | | | | | [place] [address] | | | | | | [phone] | | | | | | | | +--------+---------+ + + + | 10/28/ | Office | Cardiology | Carol, | | | 2019 | Visit | | KELLEY MorenoP [address] | | | | | | [place], | | | | | | [place] [address] | | | | | | [phone] | | | | | | | [...]
--- OUTSIDE RECORDS SUMMARY | ~2019-08-21 | XMS | Encounter Summary ---
Demographics + + + | Address | [address] | | | [place] [address] | + + + | Home Phone | | + + + | Preferred Language | Unknown | + + + | Marital Status | | + + + | Bahai Affiliation | 1041 | + + + | Race | Unknown | + + + | Ethnic Group | Unknown | + + + Author + + + | Author | [facility] | | | and Ankitana | + + + | Organization | [facility] | [...] Team Providers + +------+ + | Care Management Engineer Name | Role | Phone | [...] [facility] | MD Veronica [address] | BYPASS GRAFT X3 EVH | | | | OP [address] | [address] [place] | [place] | | | | [place] | [id number] | | | | | [address] | | | | | | [phone] | | | +--------+---------+ + + + [...] Pharmacist notified and gave patient number for [facility] pharmacy to transfer medications in AM. Given night time pain medications prior to leaving . The AVS was reviewed with patient and family with no pending questions or concerns. All b elongings were collected from the room and sent with the family. The pt is discharging home with family in [place]. New FWW sent with patient. No further questions and all teaching demo nstrated back to RN. Plan for d/c at 1800 when family arrives. Juancho Dalal AR NP - 06/15/2018 12:01 PM PDT [facility] Discharge Summary [...] precauti ons. She was recently released from alf before arriving at the ER and our social media job titles has confirmed that she is free to [...] and occupational therapy for post-op rehab. - [facility]. Disposition: Home with family. Patient was advised to call our office or their police lieutenant precinct with any questions. Follow-Up: Follow-up Information SALVATORE [...] soon as possible for a visit with [facility] . Why: Please call to schedule your 1 month follow-up with cardiology. Contact information: [address] [place] [address] [facility] [address] Time spent on discharge planning: greater than 30 minutes CABG Checklist ACEI/ARB/ARNI prescribed: No - Hypotension Aspirin prescribed: Not addressed Beta mateus (evidence-based) prescribed: Yes Beta mateus prescribed: N/A - LV EF is less than 41% High intensity statin prescribed: Yes Referral to cardiac rehab: Yes Tobacco cessation counseling provided: Yes [facility] [address], [address] [place] [address] Portions of this chart may have been created with [employer] voice recognition software. Occasi onal wrong-word or [...] feeling more short of breath, please call [facility] at [phone]. 2. For problems or concerns with your incision or your chest, please call [facility]) at [phone]. After Coronary Artery Bypass Surgery When you [...] by medication, call your healthcare pr ovider. [phone] [facility], [address] [place] [address], [place] [address]. All rights reserve d. This information is [...] | | | | | | infarction) ([facility]), | | | | | | | Polysubstance abuse | | | | | | | ([facility]) | | | | | [...] Pt states she was brought to [facility] by [facility] but states she is no l onger in custody. No guards at the door. RIZWANA Central Office Repairer suggested SW contact alf to confirm. RIZWANA spoke with [facility] who confirms pt was released. SW spoke with pt regarding discharge plan. Pt plans to discharge to friend's home. SW available should further discharg e planning needs arise. Keith Lopez MD - 06/15/2018 8:[address] [facility] PATIENT NAME: Smitha Fletcher : 1955: [...] dilol. 2. Follow-up requested. Keith Harp MD, [facility] Cardiology Portions of this chart were created with [employer] voice recognition software. Occasional wro ng-word or "sound-alike" substitutions may have occurred due to the inherent limitations of voice recognition software. Please read the chart carefully and recognize, using context, w here those substitutions have occurred. eonte Lee MD - 06/15/2018 7:15 AM PDTFormatting of this no te might be different from the original. [facility] Pt. Name/Age/: Smitha Fletcher 62 y.o. 1955 Med. Record Number: [id number] Date of admission: 06/07/2018 POD # 4 Procedure: CABG X 3 Surgeon: Eleanor Subjective New complaints: poor sternal precautions. No c/o this morning. Acknowledges that came from [facility] alf. Not sure where she is going. No [...] signed by: Hector Decker PA-C Cardiothoracic Surgery [facility] [address], [address] [place] [address] 06/15/2018 7:15 [facility] Agree with detailed plan nicely outlined by Hector Ashley Moreland MSW - 06/14/2018 1:05 PM PDTSOCIAL WORK PLAN: TBD INTERVENTION: SW acknowledged order for return to alf. Pt came from alf per chart review and may have to go back there upon DC. SW will continue to follow for DC planning. Frandy Estrada ARNP - 06/14/2018 9:11 AM PDTBlood Glucose log reviewed. Patient is stable, with control led blood glucose. Not requiring insulin Diabetes Service will sign off. Medication Reconciliation for diabetes medications has been completed. Please contact us at [phone] should the need arise. Thank you for [...] signed by: Rip Yao M.D. CardioThoracic Surgery [facility] 06/14/2018 9:23 [facility] Pt. Name/Age/: Smitha Fletcher 62 y.o. 1955 Med. Record Number: [id number] Date of admission: 06/07/2018 POD # 3 [...] patient is going. Willl have social media job titles start arrangements. Problem List Patient Active Problem [...] signed by: Hector Decker PA-C Cardiothoracic Surgery [facility] [address], [address] [address] 06/14/2018 8:59 [facility] Dave Hill MD - 06/14/2018 8:[address] [facility] PATIENT NAME: Smitha Fletcher : 1955: [...] Portions of this chart were created with [employer] voice recognition software. Occasional wro ng-word or [...] RN; she will be discharging from [facility] to alf that she came from. Assessment for glucose [...] Recent Labs Lab 06/13/18 0402 06/12/18 03106/11/18 16306/11/18 1525 06/11/18 1456 06/11/18 0312 WBC 11.8* [...] SALVATORE Elias 06/13/2018 14:53 Diabetes team, [facility] [phone] Amaury Hill MD - 06/13/2018 10:27 AM PDTFormatting of this note might be different from the origi nal. [facility] PATIENT NAME: Smitha Fletcher : 1955: [...] Portions of this chart were created with [employer] voice recognition software. Occasional wro ng-word or [...] signed by: Rip Yao M.D. CardioThoracic Surgery [facility] 06/13/2018 9:35 [facility] Pt. Name/Age/: Smitha Fletcher 62 y.o. 1955 Med. Record Number: [id number] Date of admission: 06/07/2018 POD #2 Procedure: [...] signed by: Hector Decker PA-C Cardiothoracic Surgery [facility] [address], [address] [place] [address] 06/13/2018 8:11 [facility] Kezia Downing RN - 06/12/2018 3:10 [...] discharge planning. ASSESSMENT/CHART REVIEW: Pt resides in [place]. She has Medicare coverage. COPD, is risk for readmission. If pt d oes not need placement she may benefit from home health post acute care. D/C TRANSPORT: TBD BARRIERS TO D/C: Medical stability CONTACTS: Hanna Sethi: [phone] signed by JEFFY Cabrales at 06/12/2018 1 2:24 PM Dave Hill MD - 06/12/2018 11:33 AM PDTFormatting of this note might b e different from the original. [facility] PATIENT NAME: Smitha Fletcher : 1955: AGE: [...] 1.0 0.4 - 1.5 % Comment PS8 FQG521 O2 Content, Arterial 15.7 15.0 - 23.0 [...] 22:29 Result Value Ref Range Product Code H0090A97 UNIT # [id number] UNIT ABO O UNIT RH NEG CROSSMATCH INTERP Compatible Unit Status XM Blood Product Expiration Date and Time Product Blood Type Barcode 9500 Product Code P5753U98 UNIT # [id number] UNIT ABO O UNIT RH NEG CROSSMATCH INTERP Compatible Unit Status IS Blood Product Expiration Date and Time 914279744312 Product Blood Type Barcode 9500 Blood Gas, [...] 6:53 Result Value Ref Range Product Code I7831A06 UNIT # [id number] UNIT ABO O UNIT RH NEG CROSSMATCH INTERP Compatible Unit Status XM Blood Product Expiration Date and Time 270055745656 Product Blood Type Barcode 9500 POC Glucose [...] Min: 1 Max: 4 09/05 1901 - 06/12 0700 In: 7059 [P.O.:810; [...] Duvall MD - 06/12/2018 10:12 AM PDT [facility] Hemanth Webster [...] day IV INFUSIONS: insulin LABS Recent Labs 06/12/1831106/11/18 2301 06/11/18 1958 06/11/18 1637 06/11/18 1525 06/11/18 1456 06/11/18311 WBC 12.1* -- -- 16.3* -- -- [...] Min: 1 Max: 4 09/05 1901 - 06/12 0700 In: 7059 [P.O.:810; [...] PIV at this time. Kimberly Cárdenas N athie Campbell M D - 06/10/2018 5:00 PM PDT Patient: Smitha Fletcher Date of : 1955 Admit Date: 06/07/2018 Date of Service: 06/10/2018 PCP: SALVATORE [facility] Hospital Day: 1 Hospital Course: This is a 62 y.o.femalewith hx substance abuse, [place] and stent [place] [address] Brittnee Sandoval cardiology. She was brought from alf, complaining of severe 8-9/10 burning chest pain [...] - Single Lumen 06/10/18 1446 Right Forearm mcjw-mlr-krqtja catheter sys tem 22 gauge;1 in length [...] - 99 mg/dL Final Comment: Performed by [facility] [address] [place] [address] All pertinent labs and imaging have been [...] this chart may have been created with [employer] voice recognition software. Occasi onal wrong-word or sound-alike substitutions may have occurred due to the inherent meyers itations of voice recognition software. Please read the chart carefully and recognize, using context, where these substitutions have occurred Brenna Henderson, Ct dical Student - 06/10/2018 11:05 AM PDTFormatting [...] TTE 06/08/18 showed LVEF of 45% with abfdnwtx-nl-mpwagj hypokinesis of lateral and inferio r castillo. [...] female with a pmhx of polysubstance abuse, CAD/WA s/p stent (2011), ischemic EFrEF (LVEF of 45%), HTN, bipolar disorder, nicotine dependence and incarce ration that presented from alf with severe left sided chest pain that [...] r educational purposes. Please refer to attending/resident/physician lead assistant manager/nurse practit ioner note regarding further patient [...] TTE on 018 revealed LVEF = 45%, ljeuuwob-yd-ajrxnw hypokinesis of lateral and inferior castillo, julian [...] Complaint: Chest pain Hospital Course: 62F PMH CAD/WA s/p stent (2011), ischemic HFrEF (LVEF = 45%), HTN, polysubstance abuse (met hamphetamine & marijuana), HCV, bipolar disorder, nicotine dependence and incarceration pres ented from alf w/ severe, burning, substernal chest pain w/ radiation to left shoulder and associated nausea and vomiting. Workup in ED revealed troponin elevation (peak 0.311 this admission) and patient was admitt ed for further workup and management w/ cardiology. Labs in ED also revealed UDS positive fo r amphetamine, methamphetamine, benzodiazepines and opiates. TTE revealed LVEF = 45%, ujryalko-xp-bgecia hypokinesis of lateral and inferior castillo, mitr [...] Hepatitis panel not back yet CABG tomorrow rKathie barrett MD - 06/09/2018 5:32 PM PDTFormatting of this note might be different from t he original. Patient: Smitha Fletcher Date of : 1955 Admit Date: 06/07/2018 Date of Service: 06/09/2018 PCP: Yolanda Lee ANALYTICS INTERN Hospital Day: 0 Hospital Course: This is a 62 y.o.femalewith hx substance abuse, [place] and stent [place] [address] Sandoval cardiology. She was brought from alf, complaining of severe 8-10 burning chest pain [...] hypokinesis present but the patient has has WA's in the past . Mild LVH. Stress [...] - 06/08 0659 06/08 700 - 06/09 - 06/09 1732 Most Rec ent Temp [...] Single Lumen 06/09/18 0836 Left Distal Forearm getv-wbj-uerslz cathet er system 20 gauge;1 1/4 in [...] this chart may have been created with [employer] voice recognition software. Occasi onal wrong-word or [...] TTE on 018 revealed LVEF = 45%, hgacggnz-yw-tlbxqv hypokinesis of lateral and inferior castillo, julian [...] Complaint: Chest pain Hospital Course: 62F PMH CAD/WA s/p stent (2011), ischemic HFrEF (LVEF = 45%), HTN, polysubstance abuse (met hamphetamine & marijuana), HCV, bipolar disorder, nicotine dependence and incarceration pres ented from alf w/ severe, burning, substernal chest pain w/ radiation to left shoulder and associated nausea and vomiting. Workup in ED revealed troponin elevation (peak 0.311 this admission) and patient was admitt ed for further workup and management w/ cardiology. Labs in ED also revealed UDS positive fo r amphetamine, methamphetamine, benzodiazepines and opiates. TTE revealed LVEF = 45%, igfwovjy-lb-spnygk hypokinesis of lateral and inferior castillo, mitr [...] % Min: 95 % Max: 98 % 09/ 1901 - 09/ 0700 In: 2318 [P.O.:780; [...] signed by: Shad Schuler MD 06/09/2018 18:44 AFiMichael zambrano MD - 4:25 PM PDT Patient: Smitha Fletcher Date of : 1955 Admit Date: 06/07/2018 Date of Service: 06/08/2018 PCP: SALVATORE [facility] Hospital Day: 0 Hospital Course: This is a 62 y.o. female with hx substance abuse, [place] and stent [place] [address] Riya banuelos cardiology. She was brought from alf, complaining on sever 8-10 burning chest pain [...] hypokinesis present but the patient has has WA's in the past . Mild LVH. Stress [...] for abdominal pain. Objective: Vital Signs 06/06 0700 - 06/07 0659 06/07 07 - 06/08 [...] 06/07/18 1545 Right Anterior (palmar);Medial Forearm ove k-abh-ptlyae catheter system 20 gauge;other (see comments) 1 [...] this chart may have been created with [employer] voice recognition software. Occasi onal wrong-word or sound-alike substitutions may have occurred due to the inherent meyers itations of voice recognition software. Please read the chart carefully and recognize, using context, where these substitutions have occurred ABowilliam, Shad Herrera MD - 10:22 AM PDT [...] Portions of this chart were created with [employer] voice recognition software. Occasional wro ng-word or "sound-alike" substitutions may have occurred due to the inherent limitations of voice recognition software. Please read the chart carefully and recognize, using context, w here those substitutions have occurred.Electronically signed by Shad Schuler MD at 06/08 10:27 AM Rhiannon Irene RN - 06/07/2018 3:09 PM [id number] arrived to floor. Somu nlent. Asking very [...] | | | | | | [place] [address] | | | | | | [phone] | | | | | | | | +--------+---------+ + + + | 10/28/ | Office | Cardiology | Carol, | | | 2019 | Visit | | SALVATORE Moreno [address] | | | | | [place] | | | | | | [place] [address] | | | | | | [phone] | | | | | | | [...] | | | | | | infarction) ([facility]) | | + + +--------+ [...] (L)Comment: | 7.5 - 11.2 fL | YINE | | | | Performed by [facility] [address] | [address] | | | | [address] [place] | | HEART | | | | [address] | | MEDICAL | | | | [...] SACRED | [address] | [place] [address] | | | [facility] | | | | | [...] | | MEDICAL | | | | [facility] [address], | | CENTER | | | | [place] [address] | | LABORATORY | | | | [...] + | [facility] | [address] | [place] [address] | | | [facility] | | | | | RIVERA FRIAS [...] + + + + | Product | [id number] | | REFERENCE | | | Code | | | LAB [place] | | | | | | [facility] | | | | | | [facility] | | | | | | BLOOD | | | | | | CENTER | | + + + + + + | UNIT # | [id number] | | REFERENCE | | | | | | LAB [place] | | | | | | [facility] | | | | | | [facility] | | | | | | BLOOD | | | | | | CENTER | | + + + + + + | UNIT ABO | O | | REFERENCE | | | | | | LAB [place] | | | | | | [facility] | | | | | | [facility] | | | | | | BLOOD | | | | | | CENTER | | + + + + + + | UNIT RH | NEG | | REFERENCE | | | | | | LAB [place] | | | | | | [facility] | | | | | | [facility] | | | | | | BLOOD | | | | | | CENTER | | + + + + + + | CROSSMATCH | Compatible | | REFERENCE | | | INTERP | | | LAB [place] | | | | | | [facility] | | | | | | [facility] | | | | | | BLOOD | | | | | | CENTER | | + + + + + + | Unit Status | RE | | REFERENCE | | | | | | LAB [place] | | | | | | [facility] | | | | | | [facility] | | | | | | BLOOD | | | | | | CENTER | | + + + + + + | Blood | [id number] | | REFERENCE | | | Product | | | LAB [place] | | | Expiration | | | [facility] | | | Date and | | | [facility] | | | Time | | | BLOOD | | | | | | CENTER | | + + + + + + | Product | [id number] | | REFERENCE | | | Blood Type | | | LAB [place] | | | Barcode | | | [...] + + + | Specimen Expiration Date: [id number] | REFERENCE LAB | | | [place] | | | [facility] | | | BLOOD CENTER | + + + + + + + + | Performing | Address | City/State/Zipcode | Phone Number | | Organization | | | | + + + + + | REFERENCE LAB | [address] | [place] [address] | [phone] | | [place] | | | | | [facility] [...] | | | POC | Performed by [facility] [address] | | [place] | | | | [address], [place] | | HEART | | | | [address] | | MEDICAL | | | | [...] + | YARELISDEMIK[facility] | [address] | [place] [address] | | | [facility] | | | | | LABORATORY JAMINNER | | | | + + + + + Red Blood Cells (06/14/2018 12:12 PM PDT) + + + + + + | Component | Value | Ref Range | Performed | Pathologist | | | | | At | Signature | + + + + + + | Product | [id number] | | REFERENCE | | | Code | | | LAB [place] | | | | | | [facility] | | | | | | [facility] | | | | | | BLOOD | | | | | | CENTER | | + + + + + + | UNIT # | [id number] | | REFERENCE | | | | | | LAB [place] | | | | | | [facility] | | | | | | [facility] | | | | | | BLOOD | | | | | | CENTER | | + + + + + + | UNIT ABO | O | | REFERENCE | | | | | | LAB [place] | | | | | | [facility] | | | | | | [facility] | | | | | | BLOOD | | | | | | CENTER | | + + + + + + | UNIT RH | NEG | | REFERENCE | | | | | | LAB [place] | | | | | | [facility] | | | | | | [facility] | | | | | | BLOOD | | | | | | CENTER | | + + + + + + | CROSSMATCH | Compatible | | REFERENCE | | | INTERP | | | LAB [place] | | | | | | [facility] | | | | | | [facility] | | | | | | BLOOD | | | | | | CENTER | | + + + + + + | Unit Status | IS | | REFERENCE | | | | | | LAB [place] | | | | | | [facility] | | | | | | [facility] | | | | | | BLOOD | | | | | | CENTER | | + + + + + + | Blood | [id number] | | REFERENCE | | | Product | | | LAB [place] | | | Expiration | | | [facility] | | | Date and | | | [facility] | | | Time | | | BLOOD | | | | | | CENTER | | + + + + + + | Product | [id number] | | REFERENCE | | | Blood Type | | | LAB [place] | | | Barcode | | | [facility] | | | | | | [facility] | | | | | | BLOOD | | | | | | CENTER | | + + + + + + | Product | [id number] | | REFERENCE | | | Code | | | LAB [place] | | | | | | [facility] | | | | | | [facility] | | | | | | BLOOD | | | | | | CENTER | | + + + + + + | UNIT # | [id number] | | REFERENCE | | | | | | LAB [place] | | | | | | [facility] | | | | | | [facility] | | | | | | BLOOD | | | | | | CENTER | | + + + + + + | UNIT ABO | O | | REFERENCE | | | | | | LAB [place] | | | | | | [facility] | | | | | | [facility] | | | | | | BLOOD | | | | | | CENTER | | + + + + + + | UNIT RH | NEG | | REFERENCE | | | | | | LAB [place] | | | | | | [facility] | | | | | | [facility] | | | | | | BLOOD | | | | | | CENTER | | + + + + + + | CROSSMATCH | Compatible | | REFERENCE | | | INTERP | | | LAB [place] | | | | | | [facility] | | | | | | [facility] | | | | | | BLOOD | | | | | | CENTER | | + + + + + + | Unit Status | IS | | REFERENCE | | | | | | LAB [place] | | | | | | [facility] | | | | | | [facility] | | | | | | BLOOD | | | | | | CENTER | | + + + + + + | Blood | [id number] | | REFERENCE | | | Product | | | LAB [place] | | | Expiration | | | [facility] | | | Date and | | | [facility] | | | Time | | | BLOOD | | | | | | CENTER | | + + + + + + | Product | [id number] | | REFERENCE | | | Blood Type | | | LAB [place] | | | Barcode | | | [...] + + + | Specimen Expiration Date: [id number] | REFERENCE LAB | | | [place] [facility] | | | [facility] | | | B[facility]OD CENTER | + + + + + + + + | Performing | Address | City/State/Zipcode | Phone Number | | Organization | | | | + + + + + | REFERENCE LAB | [address] | [place] [address] | [phone] | | [place] | | | | | [facility] [...] | | | POC | Performed by [facility] [address] | | [place]CRED | | | | [address], [place] | | HEART | | | | [address] | | MEDICAL | | | | [...] + + | AM[facility] | [address] | [place] [address] | | | [facility] | | | | | RIVERA FRIAS [...] | | | POC | Performed by [facility] [address] | | [place] | | | | [address] [place] | | HEART | | | | [address] | | MEDICAL | | | | [...] [address] | [place] [address] | | | [facility] | | | | | LABORATORY CERNER [...] | | | POC | Performed by [facility] [address] | | [place] | | | | [address], [place] | | HEART | | | | [address] | | MEDICAL | | | | [...] + + | AMILCAR C[facility] | [address] | [place] [address] | | | [facility] | | | | | LABORATORY ALTAGRACIA [...] | | | POC | Performed by [facility] [address] | | [place] | | | | [address] [place] | | HEART | | | | [address] | | MEDICAL | | | | [...] [address] | [place] [address] | | | [facility] | | | | | LABORATORY CERNER [...] | | | POC | Performed by [facility] [address] | | [place] | | | | [address] [place], [place] | | HEART | | | | [address] | | MEDICAL | | | | [...] + + | AM[facility] | [address] | [place] [address] | | | [facility] | | | | | RIVERA FRIAS [...] | | | POC | Performed by [facility] [address] | | SACRED | | | | [address] [place] | | HEART | | | | [address] | | MEDICAL | | | | [...] + + | AMILCAR C[facility] | [address] | [place] [address] | | | [facility] | | | | | LABORATORY CERNER [...] PROVIDENCE | | | | Performed by [facility] [address] | | SACRED | | | | [address] [place] | | HEART | | | | [address] | | MEDICAL | | | | [...] + + | AMILCAR [facility] | [address] | [place] [address] | | | [facility] | | | | | RIVERA FRIAS [...] | 52 (L)Comment: eGFR<60 | >=90 | PROVIDEDEMIE | | | GFR | consistent with impaired | mL/min/1.73m2 | SACRED | | | | kidney | | HEART | | | | function.Performed by | | MEDICAL | | | | [facility] [address], | | CENTER | | | | [place] [address] | | LABORATORY | | | | [...] + + | PROVIDED[facility]IE [facility] | [address] | [place] [address] | | | [facility] | | | | | [...] | | | POC | Performed by [facility] [address] | | SACRED | | | | [address] [place], [place] | | HEART | | | | [address] | | MEDICAL | | | | [...] + + | YARELISDEMIKarly [place] | [address] | [place] [address] | | | [facility] | | | | | LABORATORY CERNER [...] | | | POC | Performed by [facility] [address] | SACRED | | | | [address], [place] | | HEART | | | | [address] | | MEDICAL | | | | [...] [address] | [place] [address] | | | [facility] | [...] | | | POC | Performed by [facility] [address] | | SACRED | | | | [address] [place] | | HEART | | | | [address] | | MEDICAL | | | | [...] + + + + + | YARELISDEMIKarly SATURNINOFAUSTO | [address] | [place] [address] | | | [facility] | | | | | LABORATORY CERNER [...] | | | POC | Performed by [facility] [address] | | SACRED | | | | [address], [place] | | HEART | | | | [address] | | MEDICAL | | | | [...] [address] | [place] [address] | | | HEART [facility] | | | | [...] | | | POC | Performed by [facility] [address] | | SACRED | | | | [address] [place] | | HEART | | | | [address] | | MEDICAL | | | | [...] | + + + + + | YARELISDMEIKarly SATURNINOFAUSTO | [address] | [place] [address] | | | [facility] | | | | | LABORATORY CERNER [...] | [facility] | | | POC | [facility] [address], | | SACRED | | | | [place] [address] | | HEART | | | |Performed by [facility] [address], [place] [address] | | MEDICAL | | | | [...] | [address] | [place] [address] | | | [facility] | | | | | LABORATORY CERNER [...] | | | POC | Performed by [facility] [address] | | SACRED | | | | [place] | | HEART | | | | [address] | | MEDICAL | | | | [...] + + | AMILCAR CARDONA | [address] | [place] [address] | | | [facility] | | | | | RIVERA FRIAS [...] | [facility] | | | POC | [facility] [address], | | SACRED | | | | [place] [address] | | HEART | | | |Performed by [facility] [address], [place] [address] | | MEDICAL | | | | [...] + + | YARELISDEMIKarly CARDONA | [address] | [place] [address] | | | [facility] | | | | | RIVERA FRIAS [...] | [facility] | | | POC | [facility] [address], | | SACRED | | | | [place] [address] | | HEART | | | |Performed by [facility] [address], [place] [address] | | MEDICAL | | | | [...] + | AMILCAR CARDONA | [address] | [place] [address] | | | [facility] | | | | | LABORATORY ALTAGRACIA [...] | TRACEMASTER | | Duration:184 msP [place]:5 degP [place]:55 degQ Onset:508 | | | msQRSD Interval:104 msQT Interval:452 msQTcB:452 msQTcF:452 msQRS | | | [place]:129 degQRS [place]:-53 degI-40 [place]:77 degI-40 | | | [place]:-44 degT-40 [place]:204 degT-40 [place]:-83 | | | degT [place]:95 degT [place]:39 degS-T [place]:79 | | | degS-T [place]:49 degSeverity:- ABNORMAL ECG -INTERP:SINUS | | | RHYTHMINTERP:CONSIDER RIGHT VENTRICULAR HYPERTROPHYINTERP:PROBABLE | | | INFERIOR INFARCT, AGE INDETERMINATEINTERP:BORDERLINE ST ELEVATION, | | | ANTERIOR LEADSElectronically signed by: ELIZABETH CAMPBELL 06-12-2018 | | | 07:37:14 | | |QRS [place]:129 deg | | |QRS [place]:-53 deg | | |I-40 [place]:77 deg | | |I-40 [place]:-44 deg | | |T-40 [place]:204 deg | | |T-40 [place]:-83 deg | | |T [place]:95 deg | | |T [place]:39 deg | | |S-T [place]:79 deg | | |S-T [place]:49 deg | | |Severity:- ABNORMAL ECG - [...] [address] | [place] [address] | [phone] | + + + + + CBC [...] [facility] | | | | Performed by [facility] [address] | | SACRED | | | | [address] [place] | | HEART | | | | [address] | | MEDICAL | | | | [...] + + | AMILCAR CARDONA | [address] | [place] [address] | | | [facility] | | | | | LABORATORY ALTAGRACIA [...] | | MEDICAL | | | | [facility] [address], | | CENTER | | | | [place] [address] | | LABORATORY | | | | [...] + | YINE SACRED | [address] | [place] [address] | | | [facility] | | | | | LABORATORY CERNER [...] | | | POC | Performed by [facility] [address] | | SACRED | | | | [address] [place] | | HEART | | | | [address] | | MEDICAL | | | | [...] + + | AMILCAR CARDONA | [address] | [place] [address] | | | [facility] | | | | | LABORATORY CERNER [...] | [facility] | | | POC | [facility] [address], | | SACRED | | | | [place] [address] | | HEART | | | |Performed by [facility] [address], [place] [address] | | MEDICAL | | | | [...] + | AMILCAR CARDONA | [address] | [place] [address] | | | [facility] | | | | | LABORATORY CERNER [...] | | | POC | Performed by [facility] [address] | | SACRED | | | | [place] | | HEART | | | | [address] | | MEDICAL | | | | | | CENTER | | | | | | LABORATORY | | | | | | JMAINNER | | + + + + + + + + | Specimen | + + | Blood specimen | | (specimen) | + + + + + + + | Performing | Address | City/State/Zipcode | Phone Number | | Organization | | | | + + + + + | YARELISCARLOS CARDONA | [address] | [place] [address] | | | [facility] | | | | | LABORATORY JAMINNER [...] | | | POC | Performed by [facility] [address] | | SACRED | | | | [address] [place] | | HEART | | | | [address] | | MEDICAL | | | | [...] + | AMILCAR SACRFAUSTO | [address] | [place] [address] | | | [facility] | | | | | LABORATORY CERNER [...] 5.4 (H)Comment: | 3.5 - 5.0 | AMILCAR | | | | Performed by [facility] [address] | mmol/L | SACRED | | | | [address], [place] | | HEART | | | | [address] | | MEDICAL | | | | [...] + | YARELISDEMIKarly CARDONA | [address] | [place] [address] | | | [facility] | | | | | LABORATORY ALTAGRACIA [...] [facility] | | | | Performed by [facility] [address] | | SACRED | | | | [address] [place] | | HEART | | | | [address] | | MEDICAL | | | | [...] CARDONA | [address] | [place] [address] | | | HEART [facility] | | | | | RIVERA [...] CE | | | ARTERIAL | by [facility] [address], | | SACRED | | | | [place] [address] | | HEART | | | |Performed by [facility] [address], [place] [address] | | MEDICAL | | | | [...] + + | AMILCAR CARDONA | [address] | [place] [address] | | | [facility] | | | | | [...] | | | POC | Performed by [facility] [address] | | SACRED | | | | [address] [place], [place] | | HEART | | | | [address] | | MEDICAL | | | | [...] [address] | [place] [address] | | | [facility] | | | | | RIVERA FRIAS [...] | | | POC | Performed by [facility] [address] | | SACRED | | | | [address] [place] | | HEART | | | | [address] | | MEDICAL | | | | [...] + + | YARELISDEMIKarly BRENDAN | [address] | [place] [address] | | | [facility] | [...] | [facility] | | | | by [facility] [address], | mmol/L | SACRED | | | | [place] [address] | | HEART | | | |Performed by [facility] [address], [place] [address] | | MEDICAL | | | | [...] + + + + + | AMILCAR BRENDAN | [address] | [place] [address] | | | [facility] | | | | | LABORATORY CERNER [...] | | | POC | Performed by [facility] [address] | | SACRED | | | | [address], [place] | | HEART | | | | [address] | | MEDICAL | | | | [...] [address] | [place] [address] | | | [facility] | [...] | TRACEMASTER | | Duration:180 msP [place]:-10 degP [place]:68 degQ Onset:512 | | | msQRSD Interval:110 msQT Interval:444 msQTcB:486 msQTcF:472 msQRS | | | [place]:112 degQRS [place]:-63 degI-40 [place]:100 | | | degI-40 [place]:-58 degT-40 [place]: degT-40 [place]:160 | | | degT [place]:104 degT [place]:-11 degS-T Horizontal | | | [place]:104 degS-T [place]:32 degSeverity:- ABNORMAL ECG -INTERP:SINUS | | | RHYTHMINTERP:PROBABLE LEFT ATRIAL ABNORMALITYINTERP:NONSPECIFIC IVCD | | | WITH LADINTERP:INFERIOR INFARCT, AGE INDETERMINATEINTERP:LATERAL | | | INFARCT, OLDElectronically signed by: ELIZABETH CAMPBELL 06-12-2018 | | | 11:18:02 | | |QRS [place]:112 deg | | |QRS [place]:-63 deg | | |I-40 [place]:100 deg | | |I-40 [place]:-58 deg | | |T-40 [place]: deg | | |T-40 [place]:160 deg | | |T [place]:104 deg | | |T [place]:-11 deg | | |S-T [place]:104 deg | | |S-T [place]:32 deg | | |Severity:- ABNORMAL ECG - [...] | + + + + + | FLORAJEFF FELDMANER | [address] | [place] [address] | [phone] | + + + + + PTT [...] | | | | | seconds.Performed by [facility] | | | | | | [address], | | | | | | [place] [address] | | | | + + + + + + + + | Specimen | + + | Blood specimen | | (specimen) | + + + + + + + | Performing | Address | City/State/Zipcode | Phone Number | | Organization | | | | + + + + + | AMILCAR SACRFAUSTO | [address] | [place] [address] | | | [facility] | | | | | LABORATORY ALTAGRACIA [...] | | | | to 3.5Performed by [facility] | | LABORATORY | | | | [address] [place], [place], | | [place]IA | | | | [place] [address] | | | | + + + + + + + + | Specimen | + + | Blood specimen | | (specimen) | + + + + + + + | Performing | Address | City/State/Zipcode | Phone Number | | Organization | | | | + + + + + | AMILCAR CARDONA | [address] | [place] [address] | | | [facility] | | | | | RIVERA FRIAS [...] | 55 (L)Comment: eGFR<60 | >=90 | YINE | | | GFR | consistent with impaired | mL/min/1.73m2 | SACRED | | | | kidney | | HEART | | | | function.Performed by | | MEDICAL | | | | [facility] [address], | | [place] | | | | [place] [address] | | LABORATORY | | | | [...] [address] | [place] [address] | | | [facility] | | | | | [...] [facility] | | | | Performed by [facility] [address] | | SACRED | | | | [address] [place] | | HEART | | | | [address] | | MEDICAL | | | | [...] + | AMILCAR CARDONA | [address] | [place] [address] | | | [facility] | | | | | LABORATORY CERNER [...] [facility] | | | Arterial | by [facility] [address], | mmol/L | SACRED | | | | [place] [address] | | HEART | | | |Performed by [facility] [address], [place] [address] | | MEDICAL | | | | [...] [address] | [place] [address] | | | HEART [facility] | | | | | [...] Y | | | | | | JAMINNER | | + + + + ---+ + | Calcium, pH | 5.06Comment: Performed | 4.75 - 5.30 | [facility]ENC E | | | Normalized | by [facility] [address], | mg/dL | SACRED | | | | [place] [address] | | HEART | | | |Performed by [facility] [address], [place] [address] | | MEDICAL | | | | [...] + | AMILCAR CARDONA | [address] | [place] [address] | | | [facility] | | | | | LABORATORY CERNER [...] AMILCAR | | | | Performed by [facility] [address] | | BRENDAN | | | | [address] [place], [place] | | HEART | | | | [address] | | MEDICAL | | | | [...] + + | AMILCAR CARDONA | [address] | [place] [address] | | | [facility] | | | | | RIVERA FRIAS [...] +--------- ----+ + | Comment | [id number] | | PROVIDEN CE | | | [...] CE | | | ARTERIAL | by [facility] [address], | | SACRED | | | | [place] [address] | | HEART | | | |Performed by [facility] [address], [place] [address] | | MEDICAL | | | | [...] + | AMILCAR CARDONA | [address] | [place] [address] | | | [facility] | | | | | RIVERA FRIAS [...] | | | Arterial | Performed by [facility] [address] | mmol/L | SACRED | | | | [address] [place] | | HEART | | | | [address] | | MEDICAL | | | | [...] + + | YARELISDEMIKarly CARDONA | [address] | [place] [address] | | | [facility] | | | | | LABORATORY ALTAGRACIA [...] 42 | 32 - 43 mmHg | YARELISN [...] PROVIDEN CE | | | | by [facility] [address], | mmol/L | SACRED | | | | [place] [address] | | HEART | | | |Performed by [facility] [address], [place] [address] | | MEDICAL | | | | [...] SACRED | [address] | [place] [address] | | | [facility] | | | | | LABORATORY CERNER [...] (H)Comment: This | 0.00 - 0.49 | PROVIDEDEMIE | | | QUANTITATIV | quantitative D Dimer | ug/mL FEU | SACRFAUSTO | | | E | assay has [...] | | | | | seconds.Performed by [facility] | | | | | | [address], | | | | | | [place] [address] | | | | + + + + + + + + | Specimen | + + | Blood specimen | | (specimen) | + + + + + + + | Performing | Address | City/State/Zipcode | Phone Number | | Organization | | | | + + + + + | AMILCAR CARDONA | [address] | [place] [address] | | | [facility] | | | | | RIVERA FRIAS [...] | | | Arterial | Performed by [facility] [address] | mmol/L | SACRED | | | | [address] [place] | | HEART | | | | [address] | | MEDICAL | | | | [...] + + + + + | AMILCAR SATURNINOFAUSTO | [address] | [place] [address] | | | [facility] | | | | | LABORATORY ALTAGRACIA [...] PROVIDEN CE | | | | by [facility] [address], | mmol/L | SACRED | | | | [place] [address] | | HEART | | | |Performed by [facility] [address], [place] [address] | | MEDICAL | | | | [...] [address] | [place] [address] | | | [facility] | | | | | LABORATORY CERNER [...] [facility] | | | Arterial | by [facility] [address], | mmol/L | SACRED | | | | [place] [address] | | HEART | | | |Performed by [facility] [address], [place] [address] | | MEDICAL | | | | [...] + | AMILCAR CARDONA | [address] | [place] [address] | | | [facility] | | | | | [...] [facility] | | | | Performed by [facility] [address] | | SACRED | | | | [address] [place] | | HEART | | | | [address] | | MEDICAL | | | | [...] + + | AMILCAR CARDONA | [address] | [place] [address] | | | [facility] | | | | | LABORATORY ALTAGRACIA [...] [facility] | | | Arterial | by [facility] [address], | mmol/L | SACRED | | | | [place] [address] | | HEART | | | |Performed by [facility] [address], [place] [address] | | MEDICAL | | | | [...] + + | PROVIDECARLOS CARDONA | [address] | [place] [address] | | | [facility] | | | | | LABORATORY CERNER [...] Arterial | Results Delivered to | | SACRFAUSTO | | | | Kulwinder K OR23 [...] YINE | | | | Performed by [facility] [address] | | SACRED | | | | [address] [place] | | HEART | | | | [address] | | MEDICAL | | | | [...] + + | AMILCAR CARDONA | [address] | [place] [address] | | | [facility] | | | | | LABORATORY CERSAMAN | | | | + + + + + ECHO Transesophageal (CHIQUITA) (06/11/2018 1:05 PM PDT) + + | Specimen | + + | | + + + + -----+ | Narrative | Performed At | + + -----+ | | [facility] | | Transesophageal Echocardiography Report (CHIQUITA) Demographics Patient | | | Name [facility] Room Number 270 | | | ZIYAD Patient Number [id number] Date of | | | Study 06/11/2018 Visit Number [id number] Accession | | | [id number] Interpreting Sharad Richard | | | Number Physician Date | | | of 1955 Referring Physician ELEANOR BERMUDEZ | | | VERONICA Age 62 year(s) 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 | | | Pulmonary artery [id number]. Normal pericardium. No pericardial fluid. | | [...] Report | | (CHIQUITA) Demographics Patient Name [facility] Room Number 270 | | ZIYAD Patient Number [id number] Date of Study 06/11/2018 Visit | | Number [id number] Alvarez Ross | | MD Jose Manuel Number Physician Date of 1955 | | Referring Physician ELEANOR MARTIN Age 62 year(s) | | Retort Load Expediter Sanjeev Bradshaw, | | MD Sharad Richard [...] of descending | | aorta.9. Pulmonary artery [id number]. Normal pericardium. No pericardial fluid. No pleural [...] [facility] | | | Arterial | by [place] [address], | mmol/L | SACRED | | | | [place] [address] | | HEART | | | |Performed by [place] [address] [address], [place] [address] | | MEDICAL | | | | [...] + | PROVIDEDEMIE BRENDAN | [address] | [place] [address] | | | [facility] | | | | | LABORATORY CERNER [...] | | | Normalized | Performed by [facility] [address] | mg/dL | SACRED | | | | [address] [place] | | HEART | | | | [address] | | MEDICAL | | | | [...] + | AMILCAR CARDONA | [address] | [place] [address] | | | [facility] | | | | | LABORATORY ALTAGRACIA [...] [facility] | | | Arterial | by [facility] [address], | mmol/L | SACRED | | | | [place] | | HEART | | | |Performed by [facility] [address], [place] | | MEDICAL | | | [...] SACRED | [address] | [place], [place] | | | [facility]ICAL [facility] [...] [facility] | | | | Performed by [facility] [address] | mmol/L | SACRED | | | | [address], [place] | | HEART | | | | [address] | | MEDICAL | | | | [...] [address] | [place] [address] | | | HEART [facility]ICAL CENTER | [...] | | Screen | | | LAB [place] | | | | | | [facility] | | | | | | [facility] | | | | | | [facility] | | | | | | CENTER | | + + + + + + | ABO | O | | REFERENCE | | | | | | LAB [place] | | | | | | [facility] | | | | | | [facility] | | | | | | B[facility]OD | | | | | | CENTER | | + + + + + + | Rh Type | Negative | | REFERENCE | | | | | | LAB [place] | | | | | | [facility] [...] + + + | Specimen Expiration Date: [id number] | REFERENCE LAB | | | [place] [facility] | | | [facility] | | | [facility] | + + + + + + + + | Performing | Address | City/State/Zipcode | Phone Number | | Organization | | | | + + + + + | REFERENCE LAB | [address] | [place] [address] | [phone] | | [place] [facility] | | | | | [facility] [...] | | | POC | Performed by [facility] [address] | | SACRED | | | | [address], [place] | | HEART | | | | [address] | | MEDICAL | | | | [...] + + | AMILCAR CARDONA | [address] | [place] [address] | | | [facility] | | | | | LABORATORY ALTAGRACIA [...] CENTER | | | | 3.5Performed by [facility] [address] | | LABORATORY | | | | [place] | | [place] | | | | [address] | | | | + + + + + + + + | Specimen | + + | Blood specimen | | (specimen) | + + + + + + + | Performing | Address | City/State/Zipcode | Phone Number | | Organization | | | | + + + + + | AMILCAR CARDONA | [address] | [place] [address] | | | [facility] | | | | | RIVERA FRIAS [...] PROVIDEDEMIE | | | | Performed by [facility] [address] | | SACRED | [...] [address] | [place] [address] | | | HEART MEDICAL CENTER | [...] | | MEDICAL | | | | [facility] [address], | | CENTER | | | | [place] [address] | | LABORATORY | | | | [...] + | [facility] SACRED | [address] | [place] [address] | | | [facility] | | | | | LABORATORY CERNER [...] | | | | | seconds.Performed by [facility] | | | | | | [address], | | | | | | [place] [address] | | | | + + + + + + + + | Specimen | + + | Blood specimen | | (specimen) | + + + + + + + | Performing | Address | City/State/Zipcode | Phone Number | | Organization | | | | + + + + + | [facility] SACRED | [address] | [place] [address] | | | [facility]ART MEDICAL CENTER | [...] ALTAGRACIA | | + + + + +- + | Specimen | NasalComment: Performed | | [facility] | | | Source | by [facility] [address], | | SACRED | | | | [place] [address] | | HEART | | | |Performed by [facility] [address], [place] [address] | | MEDICAL | | | | [...] + + | YINE SACRFAUSTO | [address] | [place] [address] | | | [facility] | | | | | LABORATORY CERNER [...] - 1.030 | [facility] | | | [employer] | | | SACRED | | | [...] | | | SOURCE | Performed by [facility] [address] | | SACRED | | | | [address] [place] | | HEART | | | | [address] | | MEDICAL | | | | [...] + + | PROVIDEDEMIE [facility] | [address] | [place] [address] | | | [facility] | | | | | LABORATORY CERNER [...] | | | POC | Performed by [facility] [address] | SACRED | | | | [address], [place] | | HEART | | | | [id number] | | MEDICAL | | | | [...] + + | AMILCAR CARDONA | [address] | [place] [address] | | | [facility] | | | | | LABORATORY ALTAGRACIA [...] | | | | | seconds.Performed by [facility] | | | | | | [address], | | | | | | [place] [address] | | | | + + + + + + + + | Specimen | + + | Blood specimen | | (specimen) | + + + + + + + | Performing | Address | City/State/Zipcode | Phone Number | | Organization | | | | + + + + + | YARELIS[facility] CARD[facility] | [address] | [place] [address] | | | [facility] | | | | | LABORATORY CERNER [...] | | MEDICAL | | | | [facility] [address], | | CENTER | | | | [place] [address] | | LABORATORY | | | | [...] + | AMILCAR CARDONA | [address] | [place] [address] | | | HEART [facility] CENTER | | | | [...] CENTER | | | | 3.5Performed by [facility] 101 | | LABORATORY | | | | [place] | | [place] | | | | [address] | | | | + + + + + + + + | Specimen | + + | Blood specimen | | (specimen) | + + + + + + + | Performing | Address | City/State/Zipcode | Phone Number | | Organization | | | | + + + + + | AMILCAR CARDONA | [address] | [place] [address] | | | [facility] | | | | | RIVERA FRIAS [...] | | | POC | Performed by [facility] [address] | | SACRED | | | | [address] [place] | | HEART | | | | [address] | | MEDICAL | | | | [...] + | [facility] | [address] | [place] [address] | | | [facility] | | | | | LABORATORY CERNER [...] | | | | | The [facility] recommends | | | | | | that a positive HCV | | | | | | antibody result be | | | | | | followed up with a HCV | | | | | | Nucleic Acid | | | | | | Amplification test | | | | | | ([id number]).Performed At: | | | | | | [address] [place] [id number] | | | | | | [facility] [address] | | | | | | [place], [place] | | | | | | [phone] Seamus | | | | | | Riya MOJICA Ph:[phone] | | | | + + + + + + + + | Specimen | + + | Blood specimen | | (specimen) | + + + + + + + | Performing | Address | City/State/Zipcode | Phone Number | | Organization | | | | + + + + + | AMILCAR CARDONA | [address] | [place] [address] | | | [facility] | | | | | LABORATORY ALTAGRACIA [...] | | | | | seconds.Performed by [facility] | | | | | | [address], | | | | | | [place] [address] | | | | + + + + + + + + | Specimen | + + | Blood specimen | | (specimen) | + + + + + + + | Performing | Address | City/State/Zipcode | Phone Number | | Organization | | | | + + + + + | AMILCAR CARDONA | [address] | [place] [address] | | | [facility] | | | | | LABORATORY ALTAGRACIA [...] | TRACEMASTER | | Duration:152 msP [place]:32 degP [place]:62 degQ Onset:512 | | | msQRSD Interval:110 msQT Interval:416 msQTcB:453 msQTcF:440 msQRS | | | [place]:199 degQRS [place]:-83 degI-40 [place]:77 degI-40 | | | [place]:-74 degT-40 [place]:242 degT-40 [place]:216 | | | degT [place]:84 degT [place]:69 degS-T [place]:97 | | | degS-T [place]:107 degSeverity:- ABNORMAL ECG -INTERP:SINUS | | | RHYTHMINTERP:NONSPECIFIC IVCD WITH LADINTERP:INFERIOR INFARCT, | | | OLDElectronically signed by: ELIZABETH CAMPBELL 06-12-2018 11:24:19 | | |QTcB:453 ms | | |QTcF:440 ms | | |QRS [place]:199 deg | | |QRS [place]:-83 deg | | |I-40 [place]:77 deg | | |I-40 [place]:-74 deg | | |T-40 [place]:242 deg | | |T-40 [place]:216 deg | | |T [place]:84 deg | | |T [place]:69 deg | | |S-T [place]:97 deg | | |S-T [place]:107 deg | | |Severity:- ABNORMAL ECG - [...] + + | SARITHA REY | [address] | [place] [address] | [phone] | + + + + + Pulmonary [...] | | | | | seconds.Performed by [facility] | | | | | | [address], | | | | | | [place] [address] | | | | + + + + + + + + | Specimen | + + | Blood specimen | | (specimen) | + + + + + + + | Performing | Address | City/State/Zipcode | Phone Number | | Organization | | | | + + + + + | YARELISDEMIKarly BRENDAN | [address] | [place] [address] | | | [facility] | | | | | LABORATORY CERNER [...] | | | | | The [facility] recommends | | | | | | that a positive HCV | | | | | | antibody result be | | | | | | followed up with a HCV | | | | | | Nucleic Acid | | | | | | Amplification test | | | | | | ([id number]).Performed At: | | | | | | [id number] | | | | | | [address] [facility] 300 | | | | | | [place], [place] | | | | | | [phone] Daniel | | | | | | L Ph:[phone] | | | | + + + [...] + | YARELISDEMIKarly CARDONA | [address] | [place] [address] | | | [facility] | | | | | LABORATORY ALTAGRACIA [...] | | | | | formula.Performed by [facility] | | | | | | [address], | | | | | | [place] [address] | | | | + + + + + + + + | Specimen | + + | Blood specimen | | (specimen) | + + + + + + + | Performing | Address | City/State/Zipcode | Phone Number | | Organization | | | | + + + + + | AMILCAR CARDONA | [address] | [place] [address] | | | [facility] | | | | | LABORATORY ALTAGRACIA [...] | | | | | | LAB [place] | | | | | | [facility] | | | | | | [facility] | | | | | | BLOOD | | | | | | CENTER | | + + + + + + | Rh Type | Negative | | REFERENCE | | | | | | LAB [place] | | | | | | [facility] | | | | | | [facility] | | | | | | BLOOD | | | | | | CENTER | | + + + + + + + + | Specimen | + + | | + + + + + | Narrative | Performed At | + + + | Specimen Expiration Date: [id number] | REFERENCE LAB | | | [place] | | | [facility] | | | BLOOD CENTER | + + + + + + + + | Performing | Address | City/State/Zipcode | Phone Number | | Organization | | | | + + + + + | REFERENCE LAB | [address] | [place] [address] | [phone] | | [place] | | | | | [facility] [...] | | Screen | | | LAB [place] | | | | | | [facility] | | | | | | [facility] | | | | | | BLOOD | | | | | | CENTER | | + + + + + + + + | Specimen | + + | | + + + + + | Narrative | Performed At | + + + | Specimen Expiration Date: [id number] | REFERENCE LAB | | | [place] | | | [facility] | | | BLOOD CENTER | + + + + + + + + | Performing | Address | City/State/Zipcode | Phone Number | | Organization | | | | + + + + + | REFERENCE LAB | [address] | [place] [address] | [phone] | | [place] | | | | | [facility] [...] | | | | | | LAB [place] | | | | | | [facility] | | | | | | [facility] | | | | | | BLOOD | | | | | | CENTER | | + + + + + + + + | Specimen | + + | | + + + + + | Narrative | Performed At | + + + | Specimen Expiration Date: [id number] | REFERENCE LAB | | | [place] | | | [facility] | | | BLOOD CENTER | + + + + + + + + | Performing | Address | City/State/Zipcode | Phone Number | | Organization | | | | + + + + + | REFERENCE LAB | [address] | [place] [address] | [phone] | | [place] | | | | | [facility] [...] | | | | | | LAB [place] | | | | | | [facility] | | | | | | [facility] | | | | | | BLOOD | | | | | | CENTER | | + + + + + + | Rh Type | Negative | | REFERENCE | | | | | | LAB [place] | | | | | | [facility] | | | | | | [facility] | | | | | | BLOOD | | | | | | CENTER | | + + + + + + | Antibody | Positive | | REFERENCE | | | Screen | | | LAB [place] | | | | | | [facility] [...] + + + | Specimen Expiration Date: [id number] | REFERENCE LAB | | | [place] | | | [facility] | | | BLOOD CENTER | + + + + + + + + | Performing | Address | City/State/Zipcode | Phone Number | | Organization | | | | + + + + + | REFERENCE LAB | [address] | [place] [address] | [phone] | | [place] | | | | | [facility] [...] | | | | | seconds.Performed by [facility] | | | | | | [address], | | | | | | [place] [address] | | | | + + + + + + + + | Specimen | + + | Blood specimen | | (specimen) | + + + + + + + | Performing | Address | City/State/Zipcode | Phone Number | | Organization | | | | + + + + + | AMILCAR CARDONA | [address] | [place] [address] | | | [facility] | | | | | LABORATORY [place] [...] | proximal 40% LAD, 95% ostial septal jig builder, 70% mid and distal LAD, 100% mid [...] LAD, 95% | | | ostial septal jig builder, 70% mid and distal LAD, 100% mid [...] lateral castillo from | | | prior [place]. 4. Mild destinee infarct ischemia. LARGE SEVERE inferior and | | | Lateral [place]. Cath will be recommended to see best options. | | | | | |Cath will be recommended to see best options. | | | | | | | | + + + + +---------+ + + | Performing | Address | City/State/[facility] | Phone Number | [...] | TRACEMASTER | | Duration:176 msP [place]:19 degP [place]:70 degQ Onset:512 | | | msQRSD Interval:110 msQT Interval:444 msQTcB:480 msQTcF:467 msQRS | | | [place]:157 degQRS [place]:-77 degI-40 [place]:75 degI-40 | | | [place]:-59 degT-40 [place]:240 degT-40 [place]:267 | | | degT [place]:91 degT [place]:68 degS-T [place]:98 | | | degS-T [place]:103 degSeverity:- ABNORMAL ECG -INTERP:SINUS | | | RHYTHMINTERP:NONSPECIFIC IVCD WITH LADINTERP:INFERIOR INFARCT, | | | OLDElectronically signed by: ELIZABETH CAMPBELL 06-12-2018 11:25:24 | | |QTcB:480 ms | | |QTcF:467 ms | | |QRS [place]:157 deg | | |QRS [place]:-77 deg | | |I-40 [place]:75 deg | | |I-40 [place]:-59 deg | | |T-40 [place]:240 deg | | |T-40 [place]:267 deg | | |T [place]:91 deg | | |T [place]:68 deg | | |S-T [place]:98 deg | | |S-T [place]:103 deg | | |Severity:- ABNORMAL ECG - [...] + + | SARITHA TRACE | [address] | [place] [address] | [phone] | + + + + + Magnesium (06/09/2018 3:07 AM PDT) + + + +--------- ----+ + | Component | Value | Ref Range | Performe d | Pathologist | | | | | At | Signature | + + + +--------- ----+ + | Magnesium | 2.1Comment: Performed | 1.7 - 2.4 mg/dL | NOHEMY CE | | | | by [facility] [address], | | SACRED | | | | [place] [address] | | HEART | | | |Performed by [facility] [address], [place] [address] | | MEDICAL | | | | [...] + + + + + | YARELISDEMIKarly SATURNINOFAUSTO | [address] | [place] [address] | | | [facility] | | | | | LABORATORY CERNER [...] ENCE | | | Basophils | by [place] [address], | K/uL | SACRED | | | | [place] [address] | | HEART | | | |Performed by [facility] [address], [place] [address] | | MEDICA L | | | [...] + + | [facility] | [address] | [place] [address] | | | [facility] | | | | | LABORATORY CERNER [...] | | MEDICAL | | | | [facility] [address], | | CENTER | | | | [place] [address] | | LABORATORY | | | | [...] + | AMILCAR CARDONA | [address] | [place] [address] | | | [facility] | | | | | LABORATORY ALTAGRACIA [...] | | | | | TroponinPerformed by [facility] | | | | | | [address], | | | | | | [place] [address] | | | | + + + + + + + + | Specimen | + + | Blood specimen | | (specimen) | + + + + + + + | Performing | Address | City/State/Zipcode | Phone Number | | Organization | | | | + + + + + | YARELISDEMIKarly BRENDAN | [address] | [place] [address] | | | [facility] | | | | | LABORATORY ALTAGRACIA [...] | TRACEMASTER | | Duration:200 msP [place]:19 degP [place]:58 degQ Onset:512 | | | msQRSD Interval:110 msQT Interval:404 msQTcB:506 msQTcF:469 msQRS | | | [place]:184 degQRS [place]:265 degI-40 [place]:78 degI-40 | | | [place]:269 degT-40 [place]:240 degT-40 [place]:259 | | | degT [place]:77 degT [place]:63 degS-T [place]:83 | | | degS-T [place]:99 degSeverity:- ABNORMAL ECG -INTERP:SINUS | | | RHYTHMINTERP:NONSPECIFIC IVCD WITH LADINTERP:INFERIOR INFARCT, | | | OLDElectronically signed by: ELIZABETH CAMPBELL 06-12-2018 11:24:43 | | |QTcB:506 ms | | |QTcF:469 ms | | |QRS [place]:184 deg | | |QRS [place]:265 deg | | |I-40 [place]:78 deg | | |I-40 [place]:269 deg | | |T-40 [place]:240 deg | | |T-40 [place]:259 deg | | |T [place]:77 deg | | |T [place]:63 deg | | |S-T [place]:83 deg | | |S-T [place]:99 deg | | |Severity:- ABNORMAL ECG - [...] + + + + + | SARITHA TRACEMARIA TERESASTKYLAH | [address] | [place] [address] | [phone] | + + + + + Troponin [...] by | | | | | | [facility] [address], | | | | | | [place] [address] | | | | + + + + + + + + | Specimen | + + | Blood specimen | | (specimen) | + + + + + + + | Performing | Address | City/State/Zipcode | Phone Number | | Organization | | | | + + + + + | AMILCAR CARDONA | [address] | [place] [address] | | | [facility] | | | | | LABORATORY ALTAGRACIA [...] NOHEMY CE | | | | by [facility] [address], | | SACRED | | | | [place] | | HEART | | | |Performed by [facility] [address], [place] | | MEDICAL | | | [...] + + | AM[facility]CAR [facility] | [address] | [place], [place] | | | HEART MEDICAL CENTER [...] | | MEDICAL | | | | [facility] [address], | | CENTER | | | | [place] [address] | | LABORATORY | | | | [...] + | AMILCAR SACRFAUSTO | [address] | [place] [address] | | | HEART [facility] | | | | | RIVERA [...] | | MATTI Herrera at [address]. | | MEDICAL | | | | [...] | | | | | TroponinPerformed by [facility] | | | | | | [address], | | | | | | [place] [address] | | | | + + + + + + + + | Specimen | + + | Blood specimen | | (specimen) | + + + + + + + | Performing | Address | City/State/Zipcode | Phone Number | | Organization | | | | + + + + + | AMILCAR CARDONA | [address] | [place] [address] | | | [facility] | | | | | RIVERA FRIAS [...] by | | | | | | [facility] [address], | | | | | | [place] [address] | | | | + + + + + + + + | Specimen | + + | Blood specimen | | (specimen) | + + + + + + + | Performing | Address | City/State/Zipcode | Phone Number | | Organization | | | | + + + + + | [facility] BR[facility]AN | [address] | [place] [address] | | | [facility] | | | | | RIVERA FRIAS [...] PROVIDENCE | | | | Performed by [facility] [address] | | SACRED | | | | [address] [place] | | HEART | | | | [address] | | MEDICAL | | | | [...] + | AMILCAR CARDONA | [address] | [place] [address] | | | [facility] | | | | | LABORATORY ALTAGRACIA [...] | | | | | battery.Performed by [facility] | | | | | | [address], | | | | | | [place] [address] | | | | + + + + + + + + | Specimen | + + | Urine specimen | | (specimen) | + + + + + + + | Performing | Address | City/State/Zipcode | Phone Number | | Organization | | | | + + + + + | AMILCAR CARDONA | [address] | [place] [address] | | | [facility] | | | | | LABORATORY CERNER [...] Critical TRPI called to | ng/mL | SACRFAUSTO | [...] | | | | | [place].Performed by [facility] [address] | | | | | | [address] [place] | | | | | | [address] | | | | + + + + + + + + | Specimen | + + | Blood specimen | | (specimen) | + + + + + + + | Performing | Address | City/State/Zipcode | Phone Number | | Organization | | | | + + + + + | AMILCAR CARDONA | [address] | [place] | | | [facility] | | | | | LABORATORY CERNER [...] by | 0 - 69 ng/mL | YARELISNC E | | | SERUM | [facility] [address], | | SACRED | | | | [place] | | HEART | | | |Performed by [facility] [address], [place] | | MEDICAL | | | [...] + + | AMILCAR CARDONA | [address] | [place] [address] | | | [facility] | | | | | LABORATORY ALTAGRACIA [...] U/L | PROVIDENCE | | | | [facility] [address], | | SACRED | | | | [place] [address] | | HEART | | | |Performed by [facility] [address], [place] [address] | | MEDICAL | | | | [...] + + | AMILCAR CARDONA | [address] | [place] [address] | | | [facility] | | | | | LABORATORY CERNER [...] | | MEDICAL | | | | [facility] [address], | | CENTER | | | | [place] [address] | | LABORATORY | | | | [...] + + | YARELISCARLOS CARDONA | [address] | [place] [address] | | | [facility] | | | | | LABORATORY ALTAGRACIA [...] ENCE | | | Basophils | by [facility] [address], | K/uL | SACRED | | | | [place] [address] | | HEART | | | |Performed by [facility] [address], [place] [address] | | MEDICA L | | | [...] + + | AMILCAR CARDONA | [address] | [place] [address] | | | [facility] | | | | | LABORATORY CERNER [...] | PROVIDENCE | | | | by [facility] [address], | | SACRED | | | | [place] [address] | | HEART | | | |Performed by [facility] [address], [place] [address] | | MEDICAL | | | | [...] + + | AM[facility]CAR [facility] | [address] | [place] | | | HEART MEDICAL CENTER | [...] U/L | PROVIDEDEMIE | | | | [facility] [address], | | SACRED | | | | [place] | | HEART | | | |Performed by [facility] [address], [place] | | MEDICAL | | | | [...] + | AMILCAR CARDONA | [address] | [place] [address] | | | [facility] | | | | | LABORATORY ALTAGRACIA [...] - 1.030 | [facility]ENCE | | | [employer] | | | SACRED | | | [...] | | | SOURCE | Performed by [facility] [address] | | SACRED | | | | [place] | | HEART | | | | [address] | | MEDICAL | | | | [...] + + | AMILCAR CARDONA | [address] | [place] [address] | | | HEART MEDICAL CENTER | [...] | | | | | at [address], [address] | | | | | | + [...] DAILY, First dose on | | | [facility] 06/16/18 at 0900, Do not cut | | | or crush., | | + +---+ | | | + +---+ + +-------+ +-------+---+---+ | atorvaSTATin (LIPITOR) tablet | Given | 06/14/20 | 40 mg | | | | 40 mg 40 mg, Oral, NIGHTLY, | | 18 9:29 | | | | | First dose on [facility] 06/11/18 at 2100 | | PM PDT [...] PDT | | | | | Starting [facility] 06/11/18 at 1635, | | | | [...] PDT | | | | | Starting [facility] 06/11/18 at 1118, | | | | [...] PDT | | | | | Starting [facility] 06/11/18 at 1635, | | | | [...] mg | | Surgical | | Starting [facility] 06/11/18 at 1120, | | 18 11:20 [...]
--- OUTSIDE RECORDS SUMMARY | ~2019-08-21 | XMS | Encounter Summary ---
Demographics + + + | Address | [address] | | | [place] [address] | + + + | Home Phone | | + + + | Preferred Language | Unknown | + + + | Marital Status | | + + + | Adventism Affiliation | 1041 | + + + | Race | Unknown | + + + | Ethnic Group | Unknown | + + + Author + + + | Author | [facility] | | | and Ankitana | + + + | Organization | [facility] | [...] Team Providers + +------+ + | Care Safety Spec Name | Role | Phone | + [...] | LABORATORY [address] | [place] | | | | | [address] [place] | [address] | | | | | [address] | | | | | | [phone] | | | +--------+ + + + [...] | | | | | [place] [address] | | | | | | [phone] | | | | | | | | +--------+---------+ + + + | 10/28/ | Office | Cardiology | Carol, | | | 2019 | Visit | | SALVATORE Moreno [address] | | | | | | [place], | | | | | | [place] [address] | | | | | | [phone] | | | | | | | [...] + + + | AMILCAR [facility] | [address] | [place] [address] | | | [facility] | | | | | LABORATORY | | | | + + + + + | [facility] | | | | | [facility] | | | | | LABORATORY | | | | + + + + + documented in this encounter Visit Diagnoses Not on filedocumented in this encounter"
--- OUTSIDE RECORDS SUMMARY | ~2019-08-21 | XMS | Encounter Summary ---
Demographics + + + | Address | [address] | | | [place] [address] | + + + | Home Phone | | + + + | Preferred Language | Unknown | + + + | Marital Status | | + + + | Taoist Affiliation | 1041 | + + + | Race | Unknown | + + + | Ethnic Group | Unknown | + + + Author + + + | Author | [facility] | | | and Ankitana | + + + | Organization | [facility] | | | and Ankitana [...] Team Providers + +------+ + | Care Physician/Internist Name | Role | Phone | + +------+ + | Yolanda Lee | PCP | | + +------+ + Encounter Details +--------+ + + + + | Date | Type | Department | Care Team | Description | +--------+ + + + + | 03/08/ | Hospital | [facility] | Jesse Siddiqi MD | Cellulitis and | | 2015 | Encounter | [facility] | [address], | abscess of hand, | | | | INFUSION [address] | [address] floor [place], | except fingers and | | | | [address] [place], [place] | [place] [address] | thumb; Bacteremia | | | | [address] | [phone] | due to Streptococcus | | | | [phone] | | / Sepsis | +--------+ + [...] | | | | | [place] [address] | | | | | | [phone] | | | | | | | | +--------+---------+ + + + | 10/28/ | Office | Cardiology | Carol, | | | 2019 | Visit | | SALVATORE Moreno [address] | | | | | | [place] | | | | | | [place] [address] | | | | | | [phone] | | | | | | | [...]
--- OUTSIDE RECORDS SUMMARY | ~2019-08-21 | XMS | Encounter Summary ---
Demographics + + + | Address | [address] | | | [place] [address] | + + + | Home Phone | | + + + | Preferred Language | Unknown | + + + | Marital Status | | + + + | Taoism Affiliation | 1041 | + + + | Race | Unknown | + + + | Ethnic Group | Unknown | + + + Author + + + | Author | [facility] | | | and Ankitana | + + + | Organization | [facility] | | [...] Team Providers + +------+ + | Care City Bus Driver Name | Role | Phone | [...] pelvis | | | | [address] [place], | [place] | without disruption | | | | [place] [address] | [place] [address] | of pelvic ring with | | | | [phone] | [phone] | routine healing | | | | [...] as of this encounter Progress Notes Laura aMrion RN - 09/12/2016 10:08 AM PSTNo show [...] | | | | | [place] [address] | | | | | | [phone] | | | | | | | | +--------+---------+ + + + | 10/28/ | Office | Cardiology | Carol, | | | 2019 | Visit | | SALVATORE Moreno [address] | | | | | | [place], | | | | | | [place] [address] | | | | | | [phone] | | | | | | | [...]
--- OUTSIDE RECORDS SUMMARY | ~2019-08-21 | XMS | Encounter Summary ---
Demographics + + + | Address | [address] | | | [place] [address] | + + + | Home Phone [...] Author | [facility] | | | and Ankitana | + + + | Organization | [facility] | | | [...] Team Providers + +------+ + | Care Public Health Inspector Name | Role | Phone | [...] | [address] | [place] [address] | (Primary Dx); | | | | [place] | [phone] | Abscess of left | | | | [address] | | upper arm and | | | | [phone] | Sheryl Cunha, | forearm | | | | | MANAGER PURCHASING [address] | | | | | | [place] | | | | | | [address] | | | | | | | [...] | 30 | 0 | 12/30/19 | 11/20/201 | | (BRII KLEIN) | mouth Daily. | tablet | | [...] | | | | | [place] [address] | | | | | | [phone] | | | | | | | | +--------+---------+ + + + | 10/28/ | Office | Cardiology | Carol, | | | 2019 | Visit | | SALVATORE Moreno [address] | | | | | | [place] | | | | | | [place] [address] | | | | | | [phone] | | | | | | | [...] + + | YARELISDEMIKarly BRENDAN | [address] | [place] [address] | | | [facility] | | | | | [...] + | Presley Dumont Results In - 05/25/2015 4:39 PM PDT [...] SACRED | [address] | [place] [address] | | | [facility] | | | | | [...] + + + | Glucose | 94Comment: Kosovan | 65 - 99 mg/dL | [facility] [...] + | [facility] | [address] | [place] [address] | | | [facility] | | | | | LABORATORY | | | | + + + + + ED INFORMATION EXCHANGE (05/25/2015 2:28 PM PDT) + + | Specimen | + + | | + + + + + | Narrative | Performed At | + + + | ED/UCC VISIT TRACKING (3 MO.) Visit Date | [place] [facility] | | Location Type Dx / | | | Complaint -------- | | | ---- 05/25/2015 | | | 14:[address] [facility] Emergency -3 | | | Cellulitis 02/22/2015 07:[address] [facility] | | | Emergency -Urinary tract [...] ------ --------- 4 | | | 0 [facility] 3 | | | [address] [facility] 7 | | | 0 Total Note: Visits indicate total | | | known visits. Medicaid [place] Dx are the number of primary diagnoses on | | | the [facility]'s non-emergent dx list. | | | | | | --- | | | | | | --- Care Guidelines exist for the following facilities: Jaren | | | [facility] ( 09/07/2013 ) [place] Prescription Review PDMP | | | Report [...]
--- OUTSIDE RECORDS SUMMARY | ~2019-08-21 | XMS | Encounter Summary ---
Demographics + + + | Address | [address] | | | [place] [address] | + + + | Home Phone | | + + + | Preferred Language | Unknown | + + + | Marital Status | | + + + | Scientology Affiliation | 1041 | + + + | Race | Unknown | + + + | Ethnic Group | Unknown | + + + Author + + + | Author | [facility] | | | and Ankitana | + + + | Organization | [facility] | | | and Ankitana [...] Team Providers + +------+ + | Care Informaticist Name | Role | Phone | + [...] [address] | | | | | [place], | [place], | | | | | [place] [address] | [place] [address] | | | | | [phone] | [phone] | | | | | | | [...] | | | | | [place] [address] | | | | | | [phone] | | | | | | | | +--------+---------+ + + + | 10/28/ | Office | Cardiology | Carol, | | | 2019 | Visit | | SALVATORE Moreno [address] | | | | | | [place] | | | | | | [place] [address] | | | | | | [phone] | | | | | | | | +--------+---------+ + + + documented as of this encounter Visit Diagnoses Not on filedocumented in this encounter"
--- OUTSIDE RECORDS SUMMARY | ~2019-08-21 | XMS | Encounter Summary ---
Demographics + + + | Address | [address] | | | [place] [address] | + + + | Home Phone | | + + + | Preferred Language | Unknown | + + + | Marital Status | | + + + | Restoration Affiliation | 1041 | + + + | Race | Unknown | + + + | Ethnic Group | Unknown | + + + Author + + + | Author | [facility] | | | and Ankitana | + + + | Organization | [facility] | | [...] Team Providers + +------+ + | Care Dietary Internship Name | Role | Phone | + [...] [address] | | | | [address] | [facility] | | | | | [facility] | [place] [address] | | | | | [place] | [phone] | | | | | [address] | | | | | | [phone] | | | +--------+ + + + [...] | | | | | | [place] [address] | | | | | | [phone] | | | | | | | | +--------+---------+ + + + | 10/28/ | Office | Cardiology | Carol, | | | 2019 | Visit | | SALVATORE Moreno [address] | | | | | | [place], | | | | | | [place] [address] | | | | | | [phone] | | | | | | | | +--------+---------+ + + + documented as of this encounter Visit Diagnoses Not on filedocumented in this encounter"
--- OUTSIDE RECORDS SUMMARY | ~2019-08-21 | XMS | Encounter Summary ---
Demographics + + + | Address | [address] | | | [place] [address] | + + + | Home Phone [...] Author | [facility] | | | and Ankitana | + + + | Organization | [facility] [...] Team Providers + +------+ + | Care Car Pincher Name | Role | Phone | + +------+ + PCP | Unavailable | + +------+ + Encounter Details +--------+ + + + + | Date | Type | Department | Care Team | Description | +--------+ + + + + | 08/10/ | Hospital | [facility] | [place], | | | 2010 | Encounter | [facility] | [address] | | | | | EMERGENCY CENTER | [place] [address] | | | | | [address] | [phone] | | | | | [place] | | | | | | [address] | | | | | | [phone] | | | +--------+ + + + [...] | | | | | | [place] [address] | | | | | | [phone] | | | | | | | | +--------+---------+ + + + | 10/28/ | Office | Cardiology | Carol, | | | 2019 | Visit | | SALVATORE Moreno [address] | | | | | | [place], | | | | | | [place] [address] | | | | | | [phone] | | | | | | | | +--------+---------+ + + + documented as of this encounter Visit Diagnoses Not on filedocumented in this encounter"
--- OUTSIDE RECORDS SUMMARY | ~2019-08-21 | XMS | Encounter Summary ---
Demographics + + + | Address | [address] | | | [place] [address] | + + + | Home Phone | | + + + | Preferred Language | Unknown | + + + | Marital Status | | + + + | Protestant Affiliation | 1041 | + + + | Race | Unknown | + + + | Ethnic Group | Unknown | + + + Author + + + | Author | [facility] | | | and Ankitana | + + + | Organization | [facility] [...] Team Providers + +------+ + | Care Corporate Webmaster Name | Role | Phone | + [...] [address] | | | | | [place] [address] | [facility] | | | | | [facility] | [place] [address] | | | | | [place] | [phone] | | | | | [address] | | | | | | [phone] | | | +--------+ + + + [...] | | | | | | [place] [address] | | | | | | [phone] | | | | | | | | +--------+---------+ + + + | 10/28/ | Office | Cardiology | Carol, | | | 2019 | Visit | | SALVATORE Moreno [address] | | | | | | [place], | | | | | | [place] [address] | | | | | | [phone] | | | | | | | | +--------+---------+ + + + documented as of this encounter Visit Diagnoses Not on filedocumented in this encounter"
--- OUTSIDE RECORDS SUMMARY | ~2019-08-21 | XMS | Encounter Summary ---
Demographics + + + | Address | [address] | | | [place] [address] | + + + | Home Phone [...] + | Author | [facility] | | | and Ankitana | + + + | Organization | [facility] [...] Team Providers + +------+ + | Care Collection Correspondent Name | Role | Phone | + [...] | | | CENTER [address] | [place], [place] | | | | | [place] | [address] | | | | | [place] | | | | | | [address] | | | | | | [phone] | | | +--------+ + + + [...] | | | | | | [place] [address] | | | | | | [phone] | | | | | | | | +--------+---------+ + + + | 10/28/ | Office | Cardiology | Carol, | | | 2019 | Visit | | SALVATORE Moreno [address] | | | | | | [place], | | | | | | [place] [address] | | | | | | [phone] | | | | | | | [...] + + + | [facility] | [address] | [place] [address] | | | [facility] | | | | | LABORATORY | | | | + + + + + documented in this encounter Visit Diagnoses Not on filedocumented in this encounter"
--- OUTSIDE RECORDS SUMMARY | ~2019-08-21 | XMS | Encounter Summary ---
Demographics + + + | Address | [address] | | | [place] [address] | + + + | Home Phone [...] | Author | [facility] | | | and Ankitana | + + + | Organization | [facility] | [...] Providers + +------+ + | Care Media Sales Consultant Name | Role | Phone | [...] | apnea, | [address] | [place] | | | | | unspecified | [place] | [place], | | | | | type | [place], [place] | [place] [address] | | | | | Procedures | [address] | Phone: | | | | | MS POLYSOM | Phone: | [phone] | | | | | 6/>YRS SLEEP | [phone] | Fax: | | | | | 4/> ADDL | Fax: | [phone] | | | | | SAJAN ATTND | [phone] | | | | | | MS POLYSOM | | | | | | [...] | | | | | apnea) | Emily | [place] | | | | | | [place], | [address] Phone: | | | | | | [place] | [phone] | | | | | | [address] | Fax: | | | | | | Phone: | [phone] | | | | | | [phone] | | | | | | | Fax: | | | | | | | [phone] | | +--------+ + + + + + Encounter Details +--------+---------+ + + + | Date | Type | Department | Care Team | Description | +--------+---------+ + + + | 12/01/ | Office | [facility] | Jessy Agarwal MD | Sleep apnea, | | 2018 | Visit | SLEEP DISORDER [address] | [address] | unspecified type | | | | [address] | [place] | (Primary Dx) | | | | [place] [address] | [address] | | | | | [phone] | | | +--------+---------+ + + + [...] and wake time. They usually watch some Gluster s eries. She usually goes to bed [...] marijuana(Indica) to help with her sleep. ? [place] Sleepiness Scale: 2 out of 24 ( [...] HISTORY Past Medical History: Diagnosis Date Acute CO ([facility]) 2011 Anxiety Back pain Bipolar disorder (HCC) Community acquired pneumonia secondary to Haemophilus influenzae Coronary artery disease Depression Dyslipidemia Hepatitis C Heroin abuse ([facility]) Last use was 2011 Hip pain HTN (hypertension) Insomnia Ischemic cardiomyopathy Methamphetamine use ([facility]) 06/07/2018 She denies use and suggests that [...] Surgeon: Shad Schuler MD; Location: [facility] CV LAB CARDIAC CATHERIZATION Right 06/09/2018 Procedure: CV LHC; Surgeon: Shad Schuler MD; Location: [facility] CV LAB CARDIAC CATHERIZATION Right 06/09/2018 Procedure: CV LV; Surgeon: Shad Schuler MD; Location: [facility] CV LAB CATARACT REMOVAL Left 08/13/2018 Procedure: LEFT EXTRACTION CATARACT WITH LENS IMPLANT; Surgeon: Seamus Richard MD; Loc ation: [facility] MAIN OR CATARACT REMOVAL Right 09/10/2018 Procedure: RIGHT EXTRACTION CATARACT WITH LENS IMPLANT; Surgeon: Seamus Richard MD; Lo cation: [facility] MAIN OR CORONARY ANGIOPLASTY WITH STENT PLACEMENT 05/11/2012 Percutaneous transluminal coronary angioplasty and stenting of the left circumflex with th rombectomy of the left circumflex CORONARY ARTERY BYPASS GRAFT N/A 06/11/2018 Procedure: CORONARY ARTERY BYPASS GRAFT X3 EVH JU; Surgeon: Hemanth Webster MD; Loc ation: [facility] MAIN OR HYSTERECTOMY 1995 ALLERGIES No Known [...] problems. discussed diagno sis via polysomnography / sul-gw-koifls sleep testing. she has been a smoker [...] this chart may have been created with [employer] voice recognition software. Occasi onal wrong-word or [...] Insomnia Severity Index Insomnia Severity Index 22 [place] Sleepiness Scale 1. Sitting and reading 0 [...] | | | | | [place] [address] | | | | | | [phone] | | | | | | | | +--------+---------+ + + + | 10/28/ | Office | Cardiology | Carol, | | | 2019 | Visit | | SALVATORE Moreno [address] | | | | | | [place], | | | | | | [place] [address] | | | | | | [phone] | | | | | | | | +--------+---------+ + + + + + +--------+ + + | Name | Type | Priori | Associated Diagnoses | Order Schedule | | | | ty | | | + + +--------+ + + | * [facility] - | Outpatient | Routin [...]
--- OUTSIDE RECORDS SUMMARY | ~2019-08-21 | XMS | Encounter Summary ---
Demographics + + + | Address | [address] | | | [place] [address] | + + + | Home Phone [...] Author | [facility] | | | and Ankitana | + + + | Organization | [facility] | | | and [...] Team Providers + +------+ + | Care Garnetter Name | Role | Phone | + [...] L, Technologist | | | | | GLEN ALLAN [address] | | | | | | [facility] | | | | | | [place] | | | | | | [address] | | | | | | [phone] | | | +--------+ + + + [...] | | | | | [place] [address] | | | | | | [phone] | | | | | | | | +--------+---------+ + + + | 10/28/ | Office | Cardiology | Carol, | | | 2019 | Visit | | SALVATORE Moreno [address] | | | | | | [place] | | | | | | [place] [address] | | | | | | [phone] | | | | | | | [...]
--- OUTSIDE RECORDS SUMMARY | ~2019-08-21 | XMS | Encounter Summary ---
Demographics + + + | Address | [address] | | | [place] [address] | + + + | Home Phone [...] + | Author | [facility] | | | and Ankitana | + + + | Organization | [facility] | | [...] Team Providers + +------+ + | Care Residence Leasing Agent Name | Role | Phone | + +------+ + | Yolanda Lee | PCP | | + +------+ + Encounter Details +--------+ + + + + | Date | Type | Department | Care Team | Description | +--------+ + + + + | 03/12/ | Hospital | [facility] | Jesse Siddiqi MD | | | 2015 | Encounter | [facility] | [address], | | | | | NEUROLOGY [address] | [address]th floor [place] | | | | | [place], [place] | [place] [address] | | | | | [address] | [phone] | | | | | [phone] | | | +--------+ + + + [...] | | | | | [place] [address] | | | | | | [phone] | | | | | | | | +--------+---------+ + + + | 10/28/ | Office | Cardiology | Carol, | | | 2019 | Visit | | SALVATORE Moreno [address] | | | | | | [place], | | | | | | [place] [address] | | | | | | [phone] | | | | | | | [...] | | | | 30 Minutes, ONCE, 03/12/15 at | | | | | [...]
--- OUTSIDE RECORDS SUMMARY | ~2019-08-21 | XMS | Encounter Summary ---
Demographics + + + | Address | [address] | | | [place] [address] | + + + | Home Phone [...] | [facility] | | | and Ankitana | + + + | Organization | [facility] | | | and [...] Providers + +------+ + | Care Balance Truing Inspector Name | Role | Phone | [...] | | | Hospitalists [address] | | | | | [address] [place], [place] | [place] [address] | | | | | [address] | [phone] | | | | | [phone] | | | +--------+ + + + [...] | | | | | | [place] [address] | | | | | | [phone] | | | | | | | | +--------+---------+ + + + | 10/28/ | Office | Cardiology | Carol, | | | 2019 | Visit | | SALVATORE Mroeno [address] | | | | | | [place] | | | | | | [place] [address] | | | | | | [phone] | | | | | | | | +--------+---------+ + + + documented as of this encounter Visit Diagnoses Not on filedocumented in this encounter"
--- OUTSIDE RECORDS SUMMARY | ~2019-08-21 | XMS | Encounter Summary ---
Demographics + + + | Address | [address] | | | [place] [address] | + + + | Home Phone [...] + | Author | [facility] | | | and Ankitana | + + + | Organization | [facility] | | | and Ankitana [...] Team Providers + +------+ + | Care Blankmaker Name | Role | Phone | + [...] | | | | EMERGENCY CENTER | [place] [address] | Shortness of breath | | | | [address] | [phone] | | | | | [place], [place] | | | | | | [address] | | | | | | [phone] | | | +--------+ + + + [...] care to the Emergen cy Department at [facility]. We hope you get better soon. Based [...] sent through Care Everywhere.CHEST PAIN, NON CARDIAC (KINYARWANDA)SHORTNESS OF BREATH (DYSPNEA) (KINYARWANDA)documented in this encounter Medications at Time of [...] | | | | | | [place] [address] | | | | | | [phone] | | | | | | | | +--------+---------+ + + + | 10/28/ | Office | Cardiology | Carol, | | | 2020 | Visit | | SALVATORE Moreno [address] | | | | | | [place], | | | | | | [place] [address] | | | | | | [phone] | | | | | | | [...] [address] [facility] [address] | [place] [address] | | | [facility] | [...] | chest after the administration of 80ml mnki677niossojypgq contrast. | | | 3D MIP thin [...] after the administration of | | 80ml lovg363ksqehjdnnwr contrast. 3D MIP thin slab images and [...] + + | [facility] | [address] | [place] [address] | | | [facility] | [...] + + | [facility] | [address] | [place] [address] | | | [facility] | | | | | LABORATORY [...] [address] [facility] [address] | [place] [address] | | | [facility] | [...] [address] [facility] [address] | [place] [address] | | | [facility] | [...] + + | [facility] | [address] | [place] [address] | | | [facility] | [...] CARDONA | [address] | [place] [address] | | | [facility] | [...] | | | | Signed by: Prabha qSuires | + + + +---------+ + + [...] + + | [facility] | [address] | [place] [address] | | | [facility] | [...] [address] [facility] [address] | [place] [address] | | | [facility] | | | | | [...] + + | Glucose | 147 (H)Comment: Nepalese | 65 - 99 mg/dL | [facility] [...] + + | [facility] | [address] | [place] [address] | | | [facility] | [...] [address] [facility] [address] | [place] [address] | | | HE[facility] | [...]
--- OUTSIDE RECORDS SUMMARY | ~2019-08-21 | XMS | Encounter Summary ---
Demographics + + + | Address | [address] | | | [place] [address] | + + + | Home Phone [...] | [facility] | | | and Ankitana | + + + | Organization | [facility] | [...] Providers + +------+ + | Care Tube Drawer Name | Role | Phone | + [...] | | | | [address] [facility] | [place] | | | | | [address] [place] [address] | [place] [address] | | | | | [address] | | | | | | [phone] | | | +--------+ + + + [...] | | | | | [place] [address] | | | | | | [phone] | | | | | | | | +--------+---------+ + + + | 10/28/ | Office | Cardiology | Carol, | | | 2019 | Visit | | SALVATORE Moreno [address] | | | | | | [place], | | | | | | [place] [address] | | | | | | [phone] | | | | | | | | +--------+---------+ + + + documented as of this encounter Visit Diagnoses Not on filedocumented in this encounter"
--- OUTSIDE RECORDS SUMMARY | ~2019-08-21 | XMS | Encounter Summary ---
Demographics + + + | Address | [address] | | | [place] [address] | + + + | Home Phone [...] | Author | [facility] | | | and Ankitana | + + + | Organization | [facility] | [...] Team Providers + +------+ + | Care Molding Fitter Name | Role | Phone | + [...] | | | | | [address] [place], [place] | | | | | [place], [place] | [address] | | | | | [address] | [phone] | | | | | [phone] | | | +--------+ + + + [...] only - | sternotomy; 09/10/18; 1551 | Meila Munoz RN | Yecenia Domingo RN | [...] Fede Buenrostro RN | | IV | nibl-cyy-fsvwas catheter system; | | | | | [...] | | | | | [place] [address] | | | | | | [phone] | | | | | | | | +--------+---------+ + + + | 10/28/ | Office | Cardiology | Carol, | | | 2020 | Visit | | SALVATORE Moreno [address] | | | | | | [place], | | | | | | [place] [address] | | | | | | [phone] | | | | | | | [...] 12:06 PM PST Anesthesia Airway | | Txghcgiaj04/8/2018 11:58Preprocedure check: patient identified, oxygen, airway assessed, [...] | | | | | PRN, [facility] 08/13/18 at | | AM PST [...]
--- OUTSIDE RECORDS SUMMARY | ~2019-08-21 | XMS | Encounter Summary ---
Demographics + + + | Address | [address] | | | [place] [address] | + + + | Home Phone [...] | Author | [facility] | | | and Ankitana | + + + | Organization | [facility] | | [...] Team Providers + +------+ + | Care Alterations Expert Name | Role | Phone | + +------+ + PCP | Unavailable | + +------+ + Encounter Details +--------+ + + + + | Date | Type | Department | Care Team | Description | +--------+ + + + + | 05/15/ | Orders Only | [facility] | Gunnar Crow MD | | | 2008 | | [facility] | [address] [facility] | | | | | LABORATORY [address] | [place] [address] | | | | | [address] [place] | [phone] | | | | | [address] | | | | | | [phone] | | | +--------+ + + + [...] | | | | | | [place] [address] | | | | | | [phone] | | | | | | | | +--------+---------+ + + + | 10/28/ | Office | Cardiology | Carol, | | | 2019 | Visit | | SALVATORE Moreno [address] | | | | | | [place], | | | | | | [place] [address] | | | | | | [phone] | | | | | | | [...] from this patient's right elbow soft tissue (-[id number]) showed | | | similar findings. Unless [...] + | [facility] | [address] [facility] | [place] [address] | | | [facility] | | [...]
--- OUTSIDE RECORDS SUMMARY | ~2019-08-21 | XMS | Encounter Summary ---
Demographics + + + | Address | [address] | | | [place] [address] | + + + | Home Phone [...] Author | [facility] | | | and Ankitana | + + + | Organization | [facility] | [...] Team Providers + +------+ + | Care Binder And Wrapper Packer Name | Role | Phone | + +------+ + | Kiran Oneill DO | PCP | | + +------+ + Encounter Details +--------+ + + + + | Date | Type | Department | Care Team | Description | +--------+ + + + + | 09/10/ | [facility] | [facility] | Seamus Richard, | | | 2018 | Encounter | [facility] | [address] | | | | | [address] | [place] | | | | | [place] | [address] | | | | | [address] | | | | | | [phone] | | | +--------+ + + + [...] | | | | | [place] [address] | | | | | | [phone] | | | | | | | | +--------+---------+ + + + | 10/28/ | Office | Cardiology | Carol, | | | 2019 | Visit | | SALV[place]ORE Moreno [address] | | | | | | [place], | | | | | | [place] [address] | | | | | | [phone] | | | | | | | [...] HR < 40, | | | Starting [facility] 09/10/18 at 1516, For | | [...] glucose < 50, | | | Starting [facility] 09/10/18 at 1244, | | | [...] | | | | First dose on [facility] 09/10/18 at | | | | [...] Anxiety, or agitation, Starting | | | [facility] 09/10/18 at 1516, Maximum | | | total dose 2 mg., Recovery/Phase | | | I | | + +---+ | | | + +---+ | ondansetron (ZOFRAN) injection | | | 4 mg 4 mg, Intravenous, ONCE | | | PRN, Nausea, Starting [facility] 09/10/18 | | | at 1516, [...] | | | | | | Starting [facility] 09/10/18 at 1244, For | | [...]
--- OUTSIDE RECORDS SUMMARY | ~2019-08-21 | XMS | Encounter Summary ---
Demographics + + + | Address | [address] | | | [place] [address] | + + + | Home Phone | | + + + | Preferred Language | Unknown | + + + | Marital Status | | + + + | [employer] Affiliation | 1041 | + + + | Race | Unknown | + + + | Ethnic Group | Unknown | + + + Author + + + | Author | [facility] | | | and Ankitana | + + + | Organization | [facility] | | | [...] Providers + +------+ + | Care Quartz Miner Name | Role | Phone | + [...] [address] | | | | [address] | [facility] | | | | | [facility] | [place] [address] | | | | | [place] | [phone] | | | | | [phone] | | | | | | [phone] | | | +--------+ + + + [...] | | | | | | [place] [address] | | | | | | [phone] | | | | | | | | +--------+---------+ + + + | 10/28/ | Office | Cardiology | Carol, | | | 2019 | Visit | | SALVATORE Moreno [address] | | | | | | [place], | | | | | | [place] [address] | | | | | | [phone] | | | | | | | | +--------+---------+ + + + documented as of this encounter Visit Diagnoses Not on filedocumented in this encounter"
--- OUTSIDE RECORDS SUMMARY | ~2019-08-21 | XMS | Encounter Summary ---
Demographics + + + | Address | [address] | | | [place] [address] | + + + | Home Phone [...] Author | [facility] | | | and Ankitana | + + + | Organization | [facility] | | | and Ankitana [...] Team Providers + +------+ + | Care Admissions Officer Name | Role | Phone | [...] | INTRA OP [address] | [facility] [address] | | | | | [address] [place], [place] | [place] [address] | | | | | [address] | [phone] | | | | | [phone] | | | +--------+---------+ + + + [...] Pharmacist notified and gave patient number for [facility] pharmacy to transfer medications in AM. [...] AR NP - 06/15/2018 12:01 PM PDT [facility] [...] precauti ons. [facility] before arriving at the ER and our social media marketing manager has confirmed that she is free to [...] and occupational therapy for post-op rehab. - [facility]. Disposition: Home with family. Patient was advised to call our office or their emergency spill response technician with any questions. Follow-Up: Follow-up Information SALVATORE Ventura. Go on 06/23/2018. Specialty: Nurse Practitioner Why: Hospital follow up scheduled at 11:[address] Roa Contact information: [address] [facility] [address] Hemanth Webster MD. Schedule an appointment as soon as possible for a visit on 06/29/2018 . Specialty: Cardiothoracic Surgery Why: 11:30 AM Contact information: [address], [place] [address] [facility] [address] Schedule an appointment as soon as possible for a visit with [facility]. Why: Please call to schedule your 1 month follow-up with cardiology. Contact information: [address] [place] [address] [facility] [address] Time spent on discharge planning: greater than 30 minutes CABG Checklist ACEI/ARB/ARNI prescribed: No - Hypotension Aspirin prescribed: Not addressed Beta mateus (evidence-based) prescribed: Yes Beta mateus prescribed: N/A - LV EF is less than 41% High intensity statin prescribed: Yes Referral to cardiac rehab: Yes Tobacco cessation counseling provided: Yes [facility] [address], [place] [address] [place] [address] Portions of this chart may have been created with [employer] voice recognition software. Occasi onal wrong-word or [...] breath, please call Luis Alfredo estrada at [phone]. 2. For problems or concerns with your incision or your chest, please call [facility]) at [phone]. After Coronary Artery Bypass Surgery When you [...] by medication, call your healthcare pr ovider. [phone] [facility], [address] [place] [address], [place] [address]. All rights reserve d. This information is [...] | | | | infarction) ([facility]), | | | | | | | Polysubstance abuse | | | | | | | ([facility]) | | | | | [...] bedside. Pt states she was brought to [facility] by [facility] but states she is no l onger in custody. No guards at the door. SW Web Content Specialist suggested SW contact [facility] to confirm. SW spoke with [facility] who confirms pt was released. SW spoke with pt regarding discharge plan. Pt plans to discharge to friend's home. SW available should further discharg e planning needs arise. Keith Lopez MD - 06/15/2018 8:45 AM PDT [facility] PATIENT NAME: Smitha Fletcher : 1955: AGE: [...] dilol. 2. Follow-up requested. Keith Harp MD, [facility] Portions of this chart were created with [employer] voice recognition software. Occasional wro ng-word or "sound-alike" substitutions may have occurred due to the inherent limitations of voice recognition software. Please read the chart carefully and recognize, using context, w here those substitutions have occurred. eonte Lee MD - 06/15/2018 7:15 AM PDTFormatting of this no te might be different from the original. [facility] Pt. Name/Age/: Smitha Fletcher 62 y.o. 1955 Med. Record Number: [id number] Date of admission: 06/07/2018 POD # 4 Procedure: CABG X 3 Surgeon: Eleanor Subjective New complaints: poor sternal precautions. No c/o this morning. Acknowledges that came from [facility]. Not sure where she is going. No [...] signed by: Hector Decker PA-C Cardiothoracic Surgery [facility] [address] [place] [address] 06/15/2018 7:15 [facility] Agree with detailed plan nicely outlined by Hector Ashley Moreland MSW - 06/14/2018 1:05 PM PDTSOCIAL WORK PLAN: TBD INTERVENTION: SW acknowledged order for return to [facility]. Pt came from [facility] per chart review and may have to go back there upon DC. SW will continue to follow for DC planning. Frandy Estrada ARNP - 06/14/2018 9:11 AM PDTBlood Glucose log reviewed. Patient is stable, with control led blood glucose. Not requiring insulin Diabetes Service will sign off. Medication Reconciliation for diabetes medications has been completed. Please contact us at [phone] should the need arise. Thank you for [...] signed by: Rip Yao M.D. CardioThoracic Surgery [facility] 06/14/2018 9:23 [facility] Pt. Name/Age/: Smitha Fletcher 62 y.o. 1955 Med. Record Number: [id number] Date of admission: 06/07/2018 POD # 3 [...] patient is going. Willl have social media marketing manager start arrangements. Problem List Patient Active Problem [...] signed by: Hector Decker PA-C Cardiothoracic Surgery [facility] [address], [address] [place] [address] 06/14/2018 8:59 [facility] Dave Hill MD - 06/14/2018 8:07 AM PDT [facility] PATIENT NAME: Smitha Fletcher : 1955: AGE: [...] Portions of this chart were created with [employer] voice recognition software. Occasional wro ng-word or "sound-alike" substitutions may have occurred due to the inherent limitations of voice recognition software. Please read the chart carefully and recognize, using context, w here those substitutions have occurred.Electronically signed by Dave Bansal MD at 0 06/14/2018 2:17 PM PDTFrandy Squires [facility] - 06/13/2018 2:37 PM PDT Blood [...] Per RN; she will be discharging from [facility] to [facility]. Assessment for glucose [...] by: SALVATORE Elias 06/13/2018 14:53 Diabetes team, [facility] [phone] Amaury Hill MD - 06/13/2018 10:27 AM PDTFormatting of this note might be different from the origi nal. [facility] PATIENT NAME: Smitha Fletcher : 1955: AGE: [...] Portions of this chart were created with [employer] voice recognition software. Occasional wro ng-word or [...] signed by: Rip Yao M.D. CardioThoracic Surgery [facility] 06/13/2018 9:35 [facility] Pt. Name/Age/: Smitha Fletcher 62 y.o. 1955 Med. Record Number: [id number] Date of admission: 06/07/2018 POD #2 Procedure: [...] signed by: Hector Decker PA-C Cardiothoracic Surgery [facility] [address] [place] [address] 06/13/2018 8:11 [facility] Kezia Downing RN - 06/12/2018 3:10 PM [...] discharge planning. ASSESSMENT/CHART REVIEW: Pt resides in [place]. She has Medicare coverage. COPD, is risk for readmission. If pt d oes not need placement she may benefit from home health post acute care. D/C TRANSPORT: TBD BARRIERS TO D/C: Medical stability CONTACTS: Hanna Sethi: [phone] signed by JEFFY Cabrales at 06/12/2018 1 2:24 PM Dave Hill MD - 06/12/2018 11:33 AM PDTFormatting of this note might b e different from the original. [facility] PATIENT NAME: Smitha Fletcher : 1955: [...] 1.0 0.4 - 1.5 % Comment PS8 [id number] O2 Content, Arterial 15.7 15.0 - 23.0 [...] 22:29 Result Value Ref Range Product Code Q2112P55 UNIT # [id number] UNIT ABO O UNIT RH NEG CROSSMATCH INTERP Compatible Unit Status XM Blood Product Expiration Date and Time Product Blood Type Barcode 9500 Product Code B9530D21 UNIT # [id number] UNIT ABO O UNIT RH NEG CROSSMATCH INTERP Compatible Unit Status IS Blood Product Expiration Date and Time 095492752506 Product Blood Type Barcode 9500 Blood Gas, [...] 6:53 Result Value Ref Range Product Code O9134I50 UNIT # [id number] UNIT ABO O UNIT RH NEG CROSSMATCH INTERP Compatible Unit Status XM Blood Product Expiration Date and Time 670299255901 Product Blood Type Barcode 9500 POC Glucose [...] Duvall MD - 06/12/2018 10:12 AM PDT [facility] Hemanth Webster [...] Date of Service: 06/10/2018 PCP: Yolanda Lee [facility] Day: 1 Hospital Course: This is a 62 y.o.femalewith hx substance abuse, MS and stent [place] [address] Brittnee Sandoval cardiology. [facility], complaining of severe 8-9/10 burning chest pain [...] - Single Lumen 06/10/18 1446 Right Forearm nnyc-djo-hvigfi catheter sys tem 22 gauge;1 in length [...] 99 mg/dL Final Comment: Performed by [facility] [address] [place] [address] All pertinent labs and imaging have been [...] this chart may have been created with [employer] voice recognition software. Occasi onal wrong-word or sound-alike substitutions may have occurred due to the inherent meyers itations of voice recognition software. Please read the chart carefully and recognize, using context, where these substitutions have occurred Brenna Henderson [place] dical Student - 06/10/2018 11:05 AM PDTFormatting [...] TTE 06/08/18 showed LVEF of 45% with azjrygrt-pc-cvggnw hypokinesis of lateral and inferio r castillo. [...] female with a pmhx of polysubstance abuse, CAD/MS s/p stent (2011), ischemic EFrEF (LVEF of 45%), HTN, bipolar disorder, nicotine dependence and incarce ration that presented from [facility] with severe left sided chest pain that [...] educational purposes. Please refer to attending/resident/physician assistant corporation counsel/nurse practit ioner note regarding further patient care. [...] TTE on 018 revealed LVEF = 45%, gagvknat-zc-nirnhs hypokinesis of lateral and inferior castillo, julian [...] Complaint: Chest pain Hospital Course: 62F PMH CAD/MS s/p stent (2011), ischemic HFrEF (LVEF = 45%), HTN, polysubstance abuse (met hamphetamine & marijuana), HCV, bipolar disorder, nicotine dependence and incarceration pres ented from [facility] w/ severe, burning, substernal chest pain w/ radiation to left shoulder and associated nausea and vomiting. Workup in ED revealed troponin elevation (peak 0.311 this admission) and patient was admitt ed for further workup and management w/ cardiology. Labs in ED also revealed UDS positive fo r amphetamine, methamphetamine, benzodiazepines and opiates. TTE revealed LVEF = 45%, ukylpnlj-id-zgoecn hypokinesis of lateral and inferior castillo, mitr [...] Date of Service: 06/09/2018 PCP: Yolanda Lee [facility] Day: 0 Hospital Course: This is a 62 y.o.femalewith hx substance abuse, MS and stent [place] [address] Sandoval cardiology. She [facility], complaining of severe 8-9/10 burning chest pain [...] hypokinesis present but the patient has has MS's in the past . Mild LVH. Stress [...] Single Lumen 06/09/18 0836 Left Distal Forearm zcxl-igo-dapgyi cathet er system 20 gauge;1 1/4 in [...] this chart may have been created with [employer] voice recognition software. Occasi onal wrong-word or [...] TTE on 018 revealed LVEF = 45%, qsfwzlwk-qm-vydqgn hypokinesis of lateral and inferior castillo, julian [...] Complaint: Chest pain Hospital Course: 62F PMH CAD/MS s/p stent (2011), ischemic HFrEF (LVEF = 45%), HTN, polysubstance abuse (met hamphetamine & marijuana), HCV, bipolar disorder, nicotine dependence and incarceration pres ented from [facility] w/ severe, burning, substernal chest pain w/ radiation to left shoulder and associated nausea and vomiting. Workup in ED revealed troponin elevation (peak 0.311 this admission) and patient was admitt ed for further workup and management w/ cardiology. Labs in ED also revealed UDS positive fo r amphetamine, methamphetamine, benzodiazepines and opiates. TTE revealed LVEF = 45%, csjulicz-ba-fgotgc hypokinesis of lateral and inferior castillo, mitr [...] Date of Service: 06/08/2018 PCP: Yolanda Lee [facility] Day: 0 Hospital Course: This is a 62 y.o. female with hx substance abuse, MS and stent [place] [address] Riya banuelos cardiology. She [facility], complaining on sever -06/15 burning chest pain [...] hypokinesis present but the patient has has MS's in the past . Mild LVH. Stress [...] 06/07/18 1545 Right Anterior (palmar);Medial Forearm ove w-kif-rykylv catheter system 20 gauge;other (see comments) 1 [...] this chart may have been created with [employer] voice recognition software. Occasi onal wrong-word or sound-alike substitutions may have occurred due to the inherent meyers itations of voice recognition software. Please read the chart carefully and recognize, using context, where these substitutions have occurred Lexi, Shad Herrrea MD - 10:22 AM PDT PATIENT NAME: [...] Portions of this chart were created with [employer] voice recognition software. Occasional wro ng-word or "sound-alike" substitutions may have occurred due to the inherent limitations of voice recognition software. Please read the chart carefully and recognize, using context, w here those substitutions have occurred.Electronically signed by Shad Schuler MD at 06/08 10:27 AM Rhiannon Irene RN - 06/07/2018 3:09 PM [id number] arrived to floor. Somu nlent. Asking very [...] | | | | | [place] [address] | | | | | | [phone] | | | | | | | | +--------+---------+ + + + | 10/28/ | Office | Cardiology | Carol, | | | 2019 | Visit | | SALVATORE Moreno [address] | | | | | | [place], | | | | | | [place] [address] | | | | | | [phone] | | | | | | | [...] | | | | infarction) ([facility]) | | + + +--------+ [...] | | | | Performed by [facility] [address] | [address] | | | | [address] [place] | | HEART | | | | [address] | | MEDICAL | | | | [...] + | [facility] | [address] | [place] [address] | | | [facility] | | | | | [...] | MEDICAL | | | | [facility] [address], | | CENTER | | | | [place] [address] | | LABORATORY | | | | [...] + + | PROVIDEDEMIE [facility] | [address] | [place] [address] | | | [facility] | | | | | [...] + + + + | Product | [id number] | | REFERENCE | | | Code | | | [facility] | | | | | | [facility] | | | | | | [facility] | | | | | | [facility] | | | | | | CENTER | | + + + + + + | UNIT # | [id number] | | REFERENCE | | | | | | [facility] | | | | | | [facility] | | | | | | [facility] | | | | | | BLOOD | | | | | | CENTER | | + + + + + + | UNIT ABO | O | | REFERENCE | | | | | | [facility] | | | | | | [facility] | | | | | | [facility] | | | | | | BLOOD | | | | | | CENTER | | + + + + + + | UNIT RH | NEG | | REFERENCE | | | | | | [facility] | | | | | | [facility] | | | | | | [facility] | | | | | | BLOOD | | | | | | CENTER | | + + + + + + | CROSSMATCH | Compatible | | REFERENCE | | | INTERP | | | [facility] | | | | | | [facility] | | | | | | [facility] | | | | | | BLOOD | | | | | | CENTER | | + + + + + + | Unit Status | RE | | REFERENCE | | | | | | [facility] | | | | | | [facility] | | | | | | [facility] | | | | | | BLOOD | | | | | | CENTER | | + + + + + + | Blood | [id number] | | REFERENCE | | | Product | | | [facility] | | | Expiration | | | [facility] | | | Date and | | | [facility] | | | Time | | | BLOOD | | | | | | CENTER | | + + + + + + | Product | [id number] | | REFERENCE | | | Blood Type | | | [facility] | | | Barcode | | | [...] + + + | Specimen Expiration Date: [id number] | REFERENCE LAB | | | [facility] | | | [facility] | | | [facility] | + + + + + + + + | Performing | Address | City/State/Zipcode | Phone Number | | Organization | | | | + + + + + | REFERENCE LAB | [address] | [place] [address] | [phone] | | [facility] | | | | | [facility] [...] | | POC | Performed by [facility] [address] | | [address] | | | | [address] [place] | | HEART | | | | [address] | | MEDICAL | | | | [...] + | YARELISDEMIKarly C[facility] | [address] | [place] [address] | | | [facility] | | | | | LABORATORY ALTAGRACIA | | | | + + + + + Red Blood Cells (06/14/2018 12:12 PM PDT) + + + + + + | Component | Value | Ref Range | Performed | Pathologist | | | | | At | Signature | + + + + + + | Product | [id number] | | REFERENCE | | | Code | | | [facility] | | | | | | [facility] | | | | | | [facility] | | | | | | BLOOD | | | | | | CENTER | | + + + + + + | UNIT # | [id number] | | REFERENCE | | | | | | [facility] | | | | | | [facility] | | | | | | [facility] | | | | | | BLOOD | | | | | | CENTER | | + + + + + + | UNIT ABO | O | | REFERENCE | | | | | | [facility] | | | | | | [facility] | | | | | | [facility] | | | | | | BLOOD | | | | | | CENTER | | + + + + + + | UNIT RH | NEG | | REFERENCE | | | | | | [facility] | | | | | | [facility] | | | | | | [facility] | | | | | | BLOOD | | | | | | CENTER | | + + + + + + | CROSSMATCH | Compatible | | REFERENCE | | | INTERP | | | [facility] | | | | | | [facility] | | | | | | [facility] | | | | | | BLOOD | | | | | | CENTER | | + + + + + + | Unit Status | IS | | REFERENCE | | | | | | [facility] | | | | | | [facility] | | | | | | [facility] | | | | | | BLOOD | | | | | | CENTER | | + + + + + + | Blood | [id number] | | REFERENCE | | | Product | | | [facility] | | | Expiration | | | [facility] | | | Date and | | | [facility] | | | Time | | | BLOOD | | | | | | CENTER | | + + + + + + | Product | [id number] | | REFERENCE | | | Blood Type | | | [facility] | | | Barcode | | | [facility] | | | | | | [facility] | | | | | | BLOOD | | | | | | CENTER | | + + + + + + | Product | [id number] | | REFERENCE | | | Code | | | [facility] | | | | | | [facility] | | | | | | [facility] | | | | | | BLOOD | | | | | | CENTER | | + + + + + + | UNIT # | [id number] | | REFERENCE | | | | | | [facility] | | | | | | [facility] | | | | | | [facility] | | | | | | BLOOD | | | | | | CENTER | | + + + + + + | UNIT ABO | O | | REFERENCE | | | | | | [facility] | | | | | | [facility] | | | | | | [facility] | | | | | | BLOOD | | | | | | CENTER | | + + + + + + | UNIT RH | NEG | | REFERENCE | | | | | | [facility] | | | | | | [facility] | | | | | | [facility] | | | | | | BLOOD | | | | | | CENTER | | + + + + + + | CROSSMATCH | Compatible | | REFERENCE | | | INTERP | | | [facility] | | | | | | [facility] | | | | | | [facility] | | | | | | BLOOD | | | | | | CENTER | | + + + + + + | Unit Status | IS | | REFERENCE | | | | | | [facility] | | | | | | [facility] | | | | | | [facility] | | | | | | BLOOD | | | | | | CENTER | | + + + + + + | Blood | [id number] | | REFERENCE | | | Product | | | [facility] | | | Expiration | | | [facility] | | | Date and | | | [facility] | | | Time | | | BLOOD | | | | | | CENTER | | + + + + + + | Product | [id number] | | REFERENCE | | | Blood Type | | | [facility] | | | Barcode | | | [...] + + + | Specimen Expiration Date: [id number] | REFERENCE LAB | | | [facility] | | | [facility] | | | [facility] | + + + + + + + + | Performing | Address | City/State/Zipcode | Phone Number | | Organization | | | | + + + + + | REFERENCE LAB | [address] | [place] [address] | [phone] | | [facility] | | | | | [facility] [...] | | POC | Performed by [facility] [address] | | [address]CR[address] | | | | [address] [place] | | HEART | | | | [address] | | MEDICAL | | | | [...] | [address] | [place] [address] | | | [facility] | | | | | [...] | | POC | Performed by [facility] [address] | | [address]CR[address] | | | | [address], [place] | | HEART | | | | [address] | | MEDICAL | | | | [...] + | AMILCAR [facility] | [address] | [place] [address] | | | [facility] | | | | | [...] | | POC | Performed by [facility] [address] | | [address]CR[address] | | | | [address] [place] | | HEART | | | | [address] | | MEDICAL | | | | [...] | [address] | [place] [address] | | | [facility] | | | | | [...] | | POC | Performed by [facility] [address] | | [address] | | | | [address], [place] | | HEART | | | | [address] | | MEDICAL | | | | [...] + | AMILCAR CARDONA | [address] | [place] [address] | | | [facility] | | | | | [...] | | POC | Performed by [facility] [address] | | [address] | | | | [address] [place] | | HEART | | | | [address] | | MEDICAL | | | | [...] + | YINE [facility] | [address] | [place] [address] | | | [facility] | | | | | [...] | | POC | Performed by [facility] [address] | | [address] | | | | [address], [place] | | HEART | | | | [address] | | MEDICAL | | | | [...] + | AMILCAR CARDONA | [address] | [place] [address] | | | [facility] | | | | | [...] | | | | Performed by [facility] [address] | | [address]CR[address] | | | | [address] [place] | | HEART | | | | [address] | | MEDICAL | | | | [...] + | [facility] | [address] | [place] [address] | | | [facility] | | | | | [...] | MEDICAL | | | | [facility] [address], | | CENTER | | | | [place] [address] | | LABORATORY | | | | [...] + + | YARELISDEMIKarly BRENDAN | [address] | [place] [address] | | | [facility] | | | | | [...] | | POC | Performed by [facility] [address] | | SACRED | | | | [place] | | HEART | | | | [address] | | MEDICAL | | | | [...] + | [facility] | [address] | [place] [address] | | | [facility] | | | | | [...] | | POC | Performed by [facility] [address] | | [address]CR[address] | | | | [address], [place] | | HEART | | | | [address] | | MEDICAL | | | | [...] + | YARELISDEMIKarly MATAMOROSFAUSTO | [address] | [place] [address] | | | [facility] | | | | | [...] | | POC | Performed by [facility] [address] | | SACRED | | | | [address] [place] | | HEART | | | | [address] | | MEDICAL | | | | [...] + | [facility] | [address] | [place] [address] | | | [facility] | | | | | [...] | | POC | Performed by [facility] [address] | | [address]CR[address] | | | | [address], [place] | | HEART | | | | [address] | | MEDICAL | | | | [...] + + + + + | YARELISCARLOS SATURNINOAFUSTO | [address] | [place] [address] | | | [facility] | | | | | [...] | | POC | Performed by [facility] [address] | | [address]CR[address] | | | | [address] [place] | | HEART | | | | [address] | | MEDICAL | | | | [...] + + | [facility] | [address] | [place], [place] | | | [facility]ICAL [facility]ENTER [...] [facility]ENCE | | | POC | [facility] [address], | | SACRED | | | | [place] | | HEART | | | |Performed by [facility] [address], [place], [place] | | MEDICAL | | | [...] + | AMILCAR CARDONA | [address] | [place] [address] | | | [facility] | | | | | [...] | | POC | Performed by [facility] [address] | | [address]CR[address] | | | | [address] [place] | | HEART | | | | [address] | | MEDICAL | | | | [...] + + | AMILCAR CARDONA | [address] | [place] [address] | | | [facility] | | | | | [...] | | SACRED | | | | [place] [address] | | HEART | | | |Performed by [facility] [address], [place], [place] | | MEDICAL | | | [...] + + | [facility] | [address] | [place], [place] | | | [facility] [...] [facility] | | | POC | [facility] [address], | | SACRED | | | | [place] [address] | | HEART | | | |Performed by [facility] [address], [place] [address] | | MEDICAL | | | | [...] + | AMILCAR CARDONA | [address] | [place] [address] | | | [facility] | | | | | [...] | TRACEMASTER | | Duration:184 msP Horizontal [place]:5 degP Front [place]:55 degQ Onset:508 | | | msQRSD Interval:104 msQT Interval:452 msQTcB:452 msQTcF:452 msQRS | | | Horizontal [place]:129 degQRS [place]:-53 degI-40 Horizontal [place]:77 degI-40 | | | Front [place]:-44 degT-40 Horizontal [place]:204 degT-40 Front [place]:-83 | | | degT Horizontal [place]:95 degT Wave [place]:39 degS-T Horizontal [place]:79 | | | degS-T Front [place]:49 degSeverity:- ABNORMAL ECG -INTERP:SINUS | | | RHYTHMINTERP:CONSIDER RIGHT VENTRICULAR HYPERTROPHYINTERP:PROBABLE | | | INFERIOR INFARCT, AGE INDETERMINATEINTERP:BORDERLINE ST ELEVATION, | | | ANTERIOR LEADSElectronically signed by: ELIZABETH CAMPBELL 06-12-2018 | | | 07:37:14 | | |QRS Horizontal [place]:129 deg | | |QRS [place]:-53 deg | | |I-40 Horizontal [place]:77 deg | | |I-40 Front [place]:-44 deg | | |T-40 Horizontal [place]:204 deg | | |T-40 Front [place]:-83 deg | | |T Horizontal [place]:95 deg | | |T Wave [place]:39 deg | | |S-T Horizontal [place]:79 deg | | |S-T Front [place]:49 deg | | |Severity:- ABNORMAL ECG - [...] + | SARITHA REY | [address] | [place] [address] | [phone] | + + + + + CBC [...] | | | | Performed by [facility] [address] | | SACRED | | | | [address] [place] | | HEART | | | | [address] | | MEDICAL | | | | [...] + | [facility] | [address] | [place] [address] | | | [facility] | [...] | MEDICAL | | | | [facility] [address], | | CENTER | | | | [place] [address] | | LABORATORY | | | | [...] + | YARELISDEMIKarly BRENDAN | [address] | [place] [address] | | | [facility] | | | | | [...] | | POC | Performed by [facility] [address] | | SACRED | | | | [address], [place] | | HEART | | | | [address] | | MEDICAL | | | | [...] [address] | [place] [address] | | | [facility] | [...] [facility] | | | POC | [facility] [address], | | SACRED | | | | [place] [address] | | HEART | | | |Performed by [facility] [address], [place] [address] | | MEDICAL | | | | [...] + | AMILCAR CARDONA | [address] | [place] [address] | | | [facility] | | | | | [...] | | POC | Performed by [facility] [address] | | SACRED | | | | [address] [place] | | HEART | | | | [address] | | MEDICAL | | | | [...] [address] | [place] [address] | | | [facility] | | | | | [...] | | POC | Performed by [facility] [address] | | SACRFAUSTO | | | | [place] | | HEART | | | | [address] | | MEDICAL | | | | [...] + | AMILCAR CARDONA | [address] | [place] [address] | | | [facility] | | | | | [...] | | | | Performed by [facility] [address] | mmol/L | SACRED | | | | [address] [place] | | HEART | | | | [address] | | MEDICAL | | | | [...] [address] | [place] [address] | | | [facility] | | | | | [...] | | | | Performed by [facility] [address] | | SACRED | | | | [address] [place], [place] | | HEART | | | | [address] | | MEDICAL | | | | [...] + | AMILCAR CARDONA | [address] | [place] [address] | | | [facility] | | | | | [...] | | | ARTERIAL | by [facility] [address], | | SACRED | | | | [place] [address] | | HEART | | | |Performed by [facility] [address], [place] [address] | | MEDICAL | | | | [...] + | AMILCAR CARDONA | [address] | [place] [address] | | | [facility] | | | | | [...] | | POC | Performed by [facility] [address] | | SACRED | | | | [address], [place] | | HEART | | | | [address] | | MEDICAL | | | | [...] | [address] | [place] [address] | | | HEART [facility] [...] | | POC | Performed by [facility] [address] | | SACRED | | | | [address] [place] | | HEART | | | | [address] | | MEDICAL | | | | [...] + | AMILCAR CARDONA | [address] | [place] [address] | | | [facility] | | | | | [...] [facility] | | | | by [facility] [address], | mmol/L | SACRED | | | | [place] [address] | | HEART | | | |Performed by [facility] [address], [place] [address] | | MEDICAL | | | | [...] [address] | [place] [address] | | | [facility] | | | | | [...] | | POC | Performed by [facility] [address] | | SACRED | | | | [address], [place] | | HEART | | | | [address] | | MEDICAL | | | | [...] + | AMILCAR CARDONA | [address] | [place] [address] | | | [facility] | | | | | [...] | TRACEMASTER | | Duration:180 msP Horizontal [place]:-10 degP Front [place]:68 degQ Onset:512 | | | msQRSD Interval:110 msQT Interval:444 msQTcB:486 msQTcF:472 msQRS | | | Horizontal [place]:112 degQRS [place]:-63 degI-40 Horizontal [place]:100 | | | degI-40 Front [place]:-58 degT-40 Horizontal [place]: degT-40 Front [place]:160 | | | degT Horizontal [place]:104 degT Wave [place]:-11 degS-T Horizontal | | | [place]:104 degS-T Front [place]:32 degSeverity:- ABNORMAL ECG -INTERP:SINUS | | | RHYTHMINTERP:PROBABLE LEFT ATRIAL ABNORMALITYINTERP:NONSPECIFIC IVCD | | | WITH LADINTERP:INFERIOR INFARCT, AGE INDETERMINATEINTERP:LATERAL | | | INFARCT, OLDElectronically signed by: ELIZABETH CAMPBELL 06-12-2018 | | | 11:18:02 | | |QRS Horizontal [place]:112 deg | | |QRS [place]:-63 deg | | |I-40 Horizontal [place]:100 deg | | |I-40 Front [place]:-58 deg | | |T-40 Horizontal [place]: deg | | |T-40 Front [place]:160 deg | | |T Horizontal [place]:104 deg | | |T Wave [place]:-11 deg | | |S-T Horizontal [place]:104 deg | | |S-T Front [place]:32 deg | | |Severity:- ABNORMAL ECG - [...] + | SARITHA REY | [address] | [place] [address] | [phone] | + + + + + PTT [...] | | | | seconds.Performed by [facility] | | | | | | [address], | | | | | | [place] [address] | | | | + + + + + + + + | Specimen | + + | Blood specimen | | (specimen) | + + + + + + + | Performing | Address | City/State/Zipcode | Phone Number | | Organization | | | | + + + + + | AMILCAR CARDONA | [address] | [place] [address] | | | [facility] | | | | | [...] | | | to 3.5Performed by [facility] | | LABORATORY | | | | [address] [place], | | [place] | | | | [place] [address] | | | | + + + + + + + + | Specimen | + + | Blood specimen | | (specimen) | + + + + + + + | Performing | Address | City/State/Zipcode | Phone Number | | Organization | | | | + + + + + | AMILCAR CARDONA | [address] | [place] [address] | | | [facility] | | | | | [...] | MEDICAL | | | | [facility] [address], | | CENTER | | | | [place] [address] | | LABORATORY | | | | [...] + | YARELISDEMIKarly BRENDAN | [address] | [place] [address] | | | [facility] | | | | | [...] | | | | Performed by [facility] [address] | | SACRED | [...] [facility] | [address] | [place] [address] | | | [facility] | [...] | | | Arterial | by [facility] [address], | mmol/L | SACRED | | | | [place] [address] | | HEART | | | |Performed by [facility] [address], [place] [address] | | MEDICAL | | | | [...] + | YARELISDEMIKarly CARDONA | [address] | [place] [address] | | | [facility] | | | | | [...] E | | | Normalized | by [facility] [address], | mg/dL | SACRED | | | | [place] [address] | | HEART | | | |Performed by [facility] [address], [place] [address] | | MEDICAL | | | | [...] + | AMILCAR CARDONA | [address] | [place] [address] | | | [facility] | | | | | [...] | | | | Performed by [facility] [address] | | SACRED | | | | [address] [place] | | HEART | | | | [address] | | MEDICAL | | | | [...] + + | AMILCAR SACRFAUSTO | [address] | [place] [address] | | | [facility] | | | | | [...] +--------- ----+ + | Comment | [id number] | | PROVIDEN CE | | | [...] | | | ARTERIAL | by [facility] [address], | | SACRED | | | | [place] [address] | | HEART | | | |Performed by [facility] [address], [place] [address] | | MEDICAL | | | | [...] CARDONA | [address] | [place] [address] | | | HEART [facility] [...] | | Arterial | Performed by [facility] [address] | mmol/L | SACRED | | | | [address], [place] | | HEART | | | | [address] | | MEDICAL | | | | [...] [address] | [place] [address] | | | HEART [facility] [...] YARELISN CE | | | | by [facility] [address], | mmol/L | SACRED | | | | [place] [address] | | HEART | | | |Performed by [facility] [address], [place] [address] | | MEDICAL | | | | [...] + | AMILCAR CARDONA | [address] | [place] [address] | | | [facility] | | | | | [...] | | | | seconds.Performed by [facility] | | | | | | [address], | | | | | | [place] [address] | | | | + + + + + + + + | Specimen | + + | Blood specimen | | (specimen) | + + + + + + + | Performing | Address | City/State/Zipcode | Phone Number | | Organization | | | | + + + + + | AMILCAR CARDONA | [address] | [place] [address] | | | [facility] | | | | | [...] | | Arterial | Performed by [facility] [address] | mmol/L | SACRED | | | | [address], [place] | | HEART | | | [...] [facility] | [address] | [place] [address] | | | [facility] | [...] CE | | | | by [facility] [address], | mmol/L | SACRED | | | | [place] [address] | | HEART | | | |Performed by [facility] [address], [place] [address] | | MEDICAL | | | | [...] + | AMILCAR CARDONA | [address] | [place] [address] | | | [facility] | | | | | [...] [facility] | | | Arterial | by [place] [address] [address], | mmol/L | SACRED | | | | [place] [address] | | HEART | | | |Performed by [facility] [address], [place] [address] | | MEDICAL | | | | [...] + | AMILCAR CARDONA | [address] | [place] [address] | | | [facility] | | | | | [...] | | | | Performed by [facility] [address] | | SACRED | | | | [address] [place] | | HEART | | | | [address] | | MEDICAL | | | | [...] [address] | [place] | | | [facility] | | | | | [...] | | | Arterial | by [facility] [address], | mmol/L | SACRED | | | | [place] | | HEART | | | |Performed by [facility] [address], [place] | | MEDICAL | | | | [...] + | AMILCAR CARDONA | [address] | [place] [address] | | | HEART [facility] | | | | | [...] | | | | Performed by [facility] [address] | | SACRED | | | | [address] [place] | | HEART | | | | [address] | | MEDICAL | | | | [...] + | AMILCAR CARDONA | [address] | [place] [address] | | | [facility] | | | | | LABORATORY ALTAGRACIA | | | | + + + + + ECHO Transesophageal (CHIQUITA) (06/11/2018 1:05 PM PDT) + + | Specimen | + + | | + + + + -----+ | Narrative | Performed At | + + -----+ | | 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 Visible portions of ascending aorta | | | and arch normal. Grade 2atherosclerotic disease of descending aorta.9. | | | Pulmonary artery [id number]. Normal pericardium. No pericardial fluid. 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 Trace TR.7. Pulmonic valve normal Trace [place].8. Visible portions | | of ascending aorta and arch normal. 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 Pulmonary artery [id number]. Normal pericardium. No pericardial fluid. No pleural [...] | toestimate RV pressures. TAPSE measured with CM[employer]ig[employer] technology was 21.9mm. FAC=45%.POSTOP: | | No [...] | | | Arterial | by [facility] [address], | mmol/L | SACRED | | | | [place] | | HEART | | | |Performed by [facility] [address], [place] | | MEDICAL | | | [...] + + | AMILCAR SACRFAUSTO | [address] | [place] | | | HEART [facility] [...] | | Normalized | Performed by [facility] [address] | mg/dL | SACRED | | | | [address], [place] | | HEART | | | | [address] | | MEDICAL | | | | [...] CARDONA | [address] | [place] [address] | | | [facility] | [...] | | | Arterial | by [facility] [address], | mmol/L | SACRED | | | | [place] [address] | | HEART | | | |Performed by [facility] [address], [place] [address] | | MEDICAL | | | | [...] + | YARELISDEMIKarly CARDONA | [address] | [place] [address] | | | [facility] | | | | | [...] | | | | Performed by [facility] [address] | mmol/L | SACRED | | | | [address] [place] | | HEART | | | | [address] | | MEDICAL | | | | [...] + | YARELISDEMIKarly CARDONA | [address] | [place] [address] | | | [facility] | | | | | [...] | | Screen | | | LAB [place] | | | | | | [facility] | | | | | | [facility] | | | | | | [facility] | | | | | | CENTER | | + + + + + + | ABO | O | | REFERENCE | | | | | | LAB [place] | | | | | | [facility] | | | | | | [facility] | | | | | | [facility] | | | | | | CENTER | | + + + + + + | Rh Type | Negative | | REFERENCE | | | | | | LAB [place] | | | | | | [facility] [...] + + + | Specimen Expiration Date: [id number] | REFERENCE LAB | | | [place] [facility] | | | [facility] | | | [facility] | + + + + + + + + | Performing | Address | City/State/Zipcode | Phone Number | | Organization | | | | + + + + + | REFERENCE LAB | [address] | [place] [address] | [phone] | | [place] | | | | | [facility] [...] | | POC | Performed by [facility] [address] | | SACRED | | | | [address] [place] [place], [place] | | HEART | | | | [address] | | MEDICAL | | | | [...] + | [facility] | [address] | [place] [address] | | | [facility] | | | | | [...] | | | | 3.5Performed by [facility] [address] | | LABORATORY | | | | [address] [place] | | [place] | | | | [address] | | | | + + + + + + + + | Specimen | + + | Blood specimen | | (specimen) | + + + + + + + | Performing | Address | City/State/Zipcode | Phone Number | | Organization | | | | + + + + + | [facility] | [address] | [place] [address] | | | [facility] | [...] | | | | Performed by [facility] [address] | | SACRED | | | | [address] [place] | | HEART | | | | [address] | | MEDICAL | | | | [...] + | AMILCAR CARDONA | [address] | [place] [address] | | | [facility] | | | | | [...] | MEDICAL | | | | [facility] [address], | | CENTER | | | | [place] [address] | | LABORATORY | | | | [...] + | AMILCAR CARDONA | [address] | [place] [address] | | | HEART [facility] [...] | | | | seconds.Performed by [facility] | | | | | | [address], | | | | | | [place] [address] | | | | + + + + + + + + | Specimen | + + | Blood specimen | | (specimen) | + + + + + + + | Performing | Address | City/State/Zipcode | Phone Number | | Organization | | | | + + + + + | AMILCAR CARDONA | [address] | [place] [address] | | | [facility] | | | | | [...] | | | Source | by [facility] [address], | | SACRED | | | | [place] [address] | | HEART | | | |Performed by [facility] [address], [place] [address] | | MEDICAL | | | | [...] + | AMILCAR CARDONA | [address] | [place] [address] | | | [facility] | | | | | [...] - 1.030 | [facility] | | | [place] | | | SACRED | | | [...] | | SOURCE | Performed by [facility] [address] | | SACRED | | | | [address] [place] | | HEART | | | | [address] | | MEDICAL | | | | [...] + | AMILCAR CARDONA | [address] | [place] [address] | | | [facility] | | | | | [...] | | POC | Performed by [facility] [address] | | SACRED | | | | [address] [place], [place] | | HEART | | | | [address] | | MEDICAL | | | | [...] SACRED | [address] | [place] [address] | | | [facility] | | | | | [...] | | | | seconds.Performed by [facility] | | | | | | [address], | | | | | | [place] [address] | | | | + + + + + + + + | Specimen | + + | Blood specimen | | (specimen) | + + + + + + + | Performing | Address | City/State/Zipcode | Phone Number | | Organization | | | | + + + + + | [facility] | [address] | [place] [address] | | | [facility] | | | | | [...] | MEDICAL | | | | [facility] [address], | | CENTER | | | | [place] [address] | | LABORATORY | | | | [...] + | PROVIDECARLOS CARDONA | [address] | [place] [address] | | | [facility] | | | | | [...] | | | | 3.5Performed by [facility] [address] | | LABORATORY | | | | [address] [place] | | [place] | | | | [address] | | | | + + + + + + + + | Specimen | + + | Blood specimen | | (specimen) | + + + + + + + | Performing | Address | City/State/Zipcode | Phone Number | | Organization | | | | + + + + + | AMILCAR CARDONA | [address] | [place] [address] | | | [facility] | | | | | [...] | | POC | Performed by [facility] [address] | | SACRED | | | | [address], [place] | | HEART | | | | [address] | | MEDICAL | | | | [...] [address] | [place] [address] | | | [facility]ENTER | [...] test | | | | | | ([id number]).Performed At: | | | | | | [facility] [id number] | | | | | | [facility] [address] | | | | | | [place], [place] | | | | | | [id number] Daniel | | | | | | Riya MOJICA Ph:[phone] | | | | + + + + + + + + | Specimen | + + | Blood specimen | | (specimen) | + + + + + + + | Performing | Address | City/State/Zipcode | Phone Number | | Organization | | | | + + + + + | AMILCAR CARDONA | [address] | [place] [address] | | | [facility] | | | | | [...] | | | | seconds.Performed by [facility] | | | | | | [address], | | | | | | [place] [address] | | | | + + + + + + + + | Specimen | + + | Blood specimen | | (specimen) | + + + + + + + | Performing | Address | City/State/Zipcode | Phone Number | | Organization | | | | + + + + + | AMILCAR CARDONA | [address] | [place] [address] | | | [facility] | | | | | [...] | TRACEMASTER | | Duration:152 msP Horizontal [place]:32 degP Front [place]:62 degQ Onset:512 | | | msQRSD Interval:110 msQT Interval:416 msQTcB:453 msQTcF:440 msQRS | | | Horizontal [place]:199 degQRS [place]:-83 degI-40 Horizontal [place]:77 degI-40 | | | Front [place]:-74 degT-40 Horizontal [place]:242 degT-40 Front [place]:216 | | | degT Horizontal [place]:84 degT Wave [place]:69 degS-T Horizontal [place]:97 | | | degS-T Front [place]:107 degSeverity:- ABNORMAL ECG -INTERP:SINUS | | | RHYTHMINTERP:NONSPECIFIC IVCD WITH LADINTERP:INFERIOR INFARCT, | | | OLDElectronically signed by: ELIZABETH CAMPBELL 06-12-2018 11:24:19 | | |QTcB:453 ms | | |QTcF:440 ms | | |QRS Horizontal [place]:199 deg | | |QRS [place]:-83 deg | | |I-40 Horizontal [place]:77 deg | | |I-40 Front [place]:-74 deg | | |T-40 Horizontal [place]:242 deg | | |T-40 Front [place]:216 deg | | |T Horizontal [place]:84 deg | | |T Wave [place]:69 deg | | |S-T Horizontal [place]:97 deg | | |S-T Front [place]:107 deg | | |Severity:- ABNORMAL ECG - [...] + + | WAMT TRACEMASTER | [address] | [place] [address] | [phone] | + + + + + Pulmonary [...] | | | | seconds.Performed by [facility] | | | | | | [address], | | | | | | [place] [address] | | | | + + + + + + + + | Specimen | + + | Blood specimen | | (specimen) | + + + + + + + | Performing | Address | City/State/Zipcode | Phone Number | | Organization | | | | + + + + + | AMILCAR CARDONA | [address] | [place] [address] | | | [facility] | | | | | [...] | | | | | | The [facility] recommends | | | | | | that a positive HCV | | | | | | antibody result be | | | | | | followed up with a HCV | | | | | | Nucleic Acid | | | | | | Amplification test | | | | | | ([id number]).Performed At: | | | | | | [facility] [id number] | | | | | | [place] [address] | | | | | | [place], [place] | | | | | | [id number] Daniel | | | | | | L Ph:[phone] | | | | + + + [...] BRENDAN | [address] | [place] [address] | | | [facility] | | | | | [...] | | | | formula.Performed by [facility] | | | | | | [address], | | | | | | [place] [address] | | | | + + + + + + + + | Specimen | + + | Blood specimen | | (specimen) | + + + + + + + | Performing | Address | City/State/Zipcode | Phone Number | | Organization | | | | + + + + + | [facility] | [address] | [place] [address] | | | [facility] | | | | | [...] | | | | | | [facility] | | | | | | [facility] | | | | | | [facility] | | | | | | [facility] | | | | | | [facility] | | + + + + + + | Rh Type | Negative | | REFERENCE | | | | | | [facility] | | | | | | [facility] | | | | | [facility] | | | | | | [facility] | | | | | | [facility] | | + + + + + + + + | Specimen | + + | | + + + + + | Narrative | Performed At | + + + | Specimen Expiration Date: [id number] | [facility] | | | [facility] | | | [facility] | [facility] | + + + + + + + + | Performing | Address | City/State/Zipcode | Phone Number | | Organization | | | | + + + + + | [facility] | [address] | [place] | [phone] | | [facility] | | | | | [facility] [...] | | Screen | | | [facility] | | | | | | [facility] | | | | | [facility] | | | | | | [facility] | | | | | | [facility] | | + + + + + + + + | Specimen | + + | | + + + + + | Narrative | Performed At | + + + | Specimen Expiration Date: [id number] | [facility] | | | [facility] | | | [facility] | [facility] | + + + + + + + + | Performing | Address | City/State/Zipcode | Phone Number | | Organization | | | | + + + + + | [facility] | [address] | [place] [address] | [phone] | | [facility] | | | | | [facility] [...] | | | | | | [facility] | | | | | | [facility] | | | | | [facility] | | | | | | [facility] | | | | | | [facility] | | + + + + + + + + | Specimen | + + | | + + + + + | Narrative | Performed At | + + + | Specimen Expiration Date: [id number] | REFERENCE LAB | | | [facility] | [facility] | [facility] | + + + + + + + + | Performing | Address | City/State/Zipcode | Phone Number | | Organization | | | | + + + + + | REFERENCE LAB | [address] | [place] [address] | [phone] | | [facility] | | | | | [facility] [...] | | | | | | [facility] | | | [facility] | | | | | | [facility] | | | | | | [facility] | | | | | | [facility] | | + + + + + + | Rh Type | Negative | | REFERENCE | | | | | | [facility] | | | [facility] | | | | | | [facility] | | | | | | [facility] | | | | | | [facility] | | + + + + + + | Antibody | Positive | | REFERENCE | | | Screen | | | LAB [facility] | | | | | | [facility] [...] + + + | Specimen Expiration Date: [id number] | REFERENCE LAB | | | [facility] | | [facility] | | [facility] | + + + + + + + + | Performing | Address | City/State/Zipcode | Phone Number | | Organization | | | | + + + + + | REFERENCE LAB | [address] | [place] [address] | [phone] | | [facility] | | | | | [facility] [...] | | | | seconds.Performed by [facility] | | | | | | [address], | | | | | | [place] [address] | | | | + + + + + + + + | Specimen | + + | Blood specimen | | (specimen) | + + + + + + + | Performing | Address | City/State/Zipcode | Phone Number | | Organization | | | | + + + + + | AMILCAR CARDONA | [address] | [place] [address] | | | [facility] | | | | | [...] | proximal 40% LAD, 95% ostial septal chief program officer, 70% mid and distal LAD, 100% mid [...] LAD, 95% | | | ostial septal chief program officer, 70% mid and distal LAD, 100% mid [...] + | Performing | Address | City/State/[facility] | Phone Number | | [...] lateral castillo from | | | prior MS. 4. Mild destinee infarct ischemia. LARGE SEVERE inferior and | | | Lateral MS. 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 | | Duration:176 msP Horizontal [place]:19 degP Front [place]:70 degQ Onset:512 | | | msQRSD Interval:110 msQT Interval:444 msQTcB:480 msQTcF:467 msQRS | | | Horizontal [place]:157 degQRS [place]:-77 degI-40 Horizontal [place]:75 degI-40 | | | Front [place]:-59 degT-40 Horizontal [place]:240 degT-40 Front [place]:267 | | | degT Horizontal [place]:91 degT Wave [place]:68 degS-T Horizontal [place]:98 | | | degS-T Front [place]:103 degSeverity:- ABNORMAL ECG -INTERP:SINUS | | | RHYTHMINTERP:NONSPECIFIC IVCD WITH LADINTERP:INFERIOR INFARCT, | | | OLDElectronically signed by: ELIZABETH CAMPBELL 06-12-2018 11:25:24 | | |QTcB:480 ms | | |QTcF:467 ms | | |QRS Horizontal [place]:157 deg | | |QRS [place]:-77 deg | | |I-40 Horizontal [place]:75 deg | | |I-40 Front [place]:-59 deg | | |T-40 Horizontal [place]:240 deg | | |T-40 Front [place]:267 deg | | |T Horizontal [place]:91 deg | | |T Wave [place]:68 deg | | |S-T Horizontal [place]:98 deg | | |S-T Front [place]:103 deg | | |Severity:- ABNORMAL ECG - [...] + + | FLOR[facility] C[facility] | [address] | [place] [address] | [phone] | + + + + + Magnesium (06/09/2018 3:07 AM PDT) + + + +--------- ----+ + | Component | Value | Ref Range | Performe d | Pathologist | | | | | At | Signature | + + + +--------- ----+ + | Magnesium | 2.1Comment: Performed | 1.7 - 2.4 mg/dL | [facility] | | | | by [facility] [address], | | SACRED | | | | [place] [address] | | HEART | | | |Performed by [facility] [address], [place] [address] | | MEDICAL | | | | [...] SACRED | [address] | [place] [address] | | | HEART [facility] [...] | | | Basophils | by [facility] [address], | K/uL | SACRED | | | | [place] [address] | | HEART | | | |Performed by [facility] [address], [place] [address] | | MEDICA L | | | [...] + | AMILCAR CARDONA | [address] | [place] [address] | | | HEART [facility] | | | | | RIVERA [...] | MEDICAL | | | | [facility] [address], | | ROZ[place] | | | | [place] [address] | | LABORATORY | | | | [...] CARDONA | [address] | [place] [address] | | | [facility] | | | | | [...] | | | | TroponinPerformed by [facility] | | | | | | [address], | | | | | | [place] [address] | | | | + + + + + + + + | Specimen | + + | Blood specimen | | (specimen) | + + + + + + + | Performing | Address | City/State/Zipcode | Phone Number | | Organization | | | | + + + + + | AMILCAR CARDONA | [address] | [place] [address] | | | [facility] | | | | | [facility] | | | | + + + + + ECG 12 lead (06/08/2018 4:30 AM PDT) + + | Specimen | + + | | + + + + + | Narrative | Performed At | + + + | HEART RATE:94 | W[facility] | | bpmRR Interval:638 msAtrial Rate:95 msP-R Interval:148 msP | TRACEMASTER | | Duration:200 msP Horizontal [place]:19 degP Front [place]:58 degQ Onset:512 | | | msQRSD Interval:110 msQT Interval:404 msQTcB:506 msQTcF:469 msQRS | | | Horizontal [place]:184 degQRS [place]:265 degI-40 Horizontal [place]:78 degI-40 | | | Front [place]:269 degT-40 Horizontal [place]:240 degT-40 Front [place]:259 | | | degT Horizontal [place]:77 degT Wave [place]:63 degS-T Horizontal [place]:83 | | | degS-T Front [place]:99 degSeverity:- ABNORMAL ECG -INTERP:SINUS | | | RHYTHMINTERP:NONSPECIFIC IVCD WITH LADINTERP:INFERIOR INFARCT, | | | OLDElectronically signed by: ELIZABETH CAMPBELL 06-12-2018 11:24:43 | | |QTcB:506 ms | | |QTcF:469 ms | | |QRS Horizontal [place]:184 deg | | |QRS [place]:265 deg | | |I-40 Horizontal [place]:78 deg | | |I-40 Front [place]:269 deg | | |T-40 Horizontal [place]:240 deg | | |T-40 Front [place]:259 deg | | |T Horizontal [place]:77 deg | | |T Wave [place]:63 deg | | |S-T Horizontal [place]:83 deg | | |S-T Front [place]:99 deg | | |Severity:- ABNORMAL ECG - [...] [address] | [place] [address] | [phone] | + + + + + Troponin [...] | | | | | | [facility] [address], | | | | | | [place] [address] | | | | + + + + + + + + | Specimen | + + | Blood specimen | | (specimen) | + + + + + + + | Performing | Address | City/State/Zipcode | Phone Number | | Organization | | | | + + + + + | AMILCAR CARDONA | [address] | [place] [address] | | | [facility] | | | | | [...] CE | | | | by [facility] [address], | | SACRED | | | | [place] [address] | | HEART | | | |Performed by [facility] [address], [place] [address] | | MEDICAL | | | | [...] + + | AMLICAR CARDONA | [address] | [place] [address] | | | [facility] | | | | | [...] | MEDICAL | | | | [facility] [address], | | CENTER | | | | [place] [address] | | LABORATORY | | | | [...] + | AMILCAR CARDONA | [address] | [place] [address] | | | [facility] | | | | | [...] | | MATTI Herrera at [address] [place]. | | MEDICAL | | | | [...] | | | | TroponinPerformed by [facility] | | | | | | [address], | | | | | | [place] [address] | | | | + + + + + + + + | Specimen | + + | Blood specimen | | (specimen) | + + + + + + + | Performing | Address | City/State/Zipcode | Phone Number | | Organization | | | | + + + + + | [facility] | [address] | [place] [address] | | | [facility] | | | | | [...] | | | | | | [facility] [address], | | | | | | [place] [address] | | | | + + + + + + + + | Specimen | + + | Blood specimen | | (specimen) | + + + + + + + | Performing | Address | City/State/Zipcode | Phone Number | | Organization | | | | + + + + + | AMILCAR CARDONA | [address] | [place] [address] | | | [facility] | | | | | [...] | | | | Performed by [facility] [address] | | SACRED | | | | [address] [place], [place] | | HEART | | | | [address] | | MEDICAL | | | | [...] + | AMILCAR CARDONA | [address] | [place] [address] | | | [facility] | | | | | [...] chest. Signed by: | | | MD Chaes, Kavon Sign Date/Time: 06/07/2018 9:27 AM | [...] | | | | battery.Performed by [facility] | | | | | | [address], | | | | | | [place] [address] | | | | + + + + + + + + | Specimen | + + | Urine specimen | | (specimen) | + + + + + + + | Performing | Address | City/State/Zipcode | Phone Number | | Organization | | | | + + + + + | AMILCAR CARDONA | [address] | [place] [address] | | | [facility] | | | | | [...] | | | | [place].Performed by [facility] [address] | | | | | [address] [place] | | | | | | [address] | | | | + + + + + + + + | Specimen | + + | Blood specimen | | (specimen) | + + + + + + + | Performing | Address | City/State/Zipcode | Phone Number | | Organization | | | | + + + + + | AMILCAR CARDONA | [address] | [place] [address] | | | [facility] | | | | | [...] E | | | SERUM | [facility] [address], | | SACRED | | | | [place] [address] | | HEART | | | |Performed by [facility] [address], [place] [address] | | MEDICAL | | | | [...] + | YARELISDEMIKarly CARDONA | [address] | [place] [address] | | | [facility] | | | | | [...] U/L | PROVIDEDEMIE | | | | [facility] [address], | | SACRED | | | | [place] | | HEART | | | |Performed by [facility] [address], [place] | | MEDICAL | | | [...] SACRED | [address] | [place], [place] | | | [facility] | | | | | [...] | MEDICAL | | | | [facility] [address], | | CENTER | | | | [place] [address] | | LABORATORY | | | | [...] + | [facility] | [address] | [place] [address] | | | [facility] | | | | | [...] | | | Basophils | by [facility] [address], | K/uL | SACRED | | | | [place] | | HEART | | | |Performed by [facility] [address], [place] | | MEDICA L | | [...] + + | [facility] | [address] | [place], [place] | | | [facility] [...] [facility] | | | | by [facility] [address], | | SACRED | | | | [place] [address] | | HEART | | | |Performed by [facility] [address], [place] [address] | | MEDICAL | | | | [...] + | AMILCAR CARDONA | [address] | [place] [address] | | | [facility] | | | | | [...] | [facility] | | | | [facility] [address], | | SACRED | | | | [place] [address] | | HEART | | | |Performed by [facility] [address], [place] [address] | | MEDICAL | | | | [...] + | [facility] | [address] | [place] [address] | | | [facility] | | | | | [...] - 1.030 | [facility] | | | United | | | SACRED | | | [...] | | SOURCE | Performed by [facility] [address] | | SACRED | | | | [address] [place] | | HEART | | | | [address] | | MEDICAL | | | | [...] + | YARELISDEMIKarly CARDONA | [address] | [place] [address] | | | [facility] | | | | | [...] of unspecified type of | | vessel, [place] or graft | + + documented in [...] PDT | | | | | Starting [facility] 06/11/18 at 1635, | | | [...] | | | | | Constipation, Starting [facility] 06/11/18 | | AM PDT | | [...]
--- OUTSIDE RECORDS SUMMARY | ~2019-08-21 | XMS | Encounter Summary ---
Demographics + + + | Address | [address] | | | [place] [address] | + + + | Home Phone [...] + | Author | [facility] | | | and Ankitana | + + + | Organization | [facility] | | | and Ankitana | [...] Team Providers + +------+ + | Care Pamphlet Distributor Name | Role | Phone | + [...] [address] | | | | [address] | [facility] | | | | | [facility] | [place] [address] | | | | | [place] | [phone] | | | | | [address] | | | | | | [phone] | | | +--------+ + + + [...] | | | | | [place] [address] | | | | | | [phone] | | | | | | | | +--------+---------+ + + + | 10/28/ | Office | Cardiology | Carol, | | | 2019 | Visit | | SALVATORE [address] | | | | | | [place], | | | | | | [place] [address] | | | | | | [phone] | | | | | | | | +--------+---------+ + + + documented as of this encounter Visit Diagnoses Not on filedocumented in this encounter"
--- OUTSIDE RECORDS SUMMARY | ~2019-08-21 | XMS | Encounter Summary ---
Demographics + + + | Address | [address] | | | [place] [address] | + + + | Home Phone [...] + | Author | [facility] | | | and Ankitana | + + + | Organization | [facility] | | | and Ankitana | [...] Team Providers + +------+ + | Care Carpet Layer Helper Name | Role | Phone | [...] | | | | unspecified | | [address] | | | | | type of | | Phone: | | | | | vessel, | | [phone] | | | | | [place] or | | Fax: | | | | | graft | | [phone] | | | | | Hyponatremia | [...] + + | 12/26/ | Hospital | [facility] | Ignacio Turcios, | Coronary | | 2015 - | Encounter | [facility] | [address] | atherosclerosis of | | | | MEDICAL [address] | [place], | unspecified type of | | 12/29/ | | Ave [place] | [place] [address] | vessel, [place] or | | 2014 | | [address] | [phone] | graft (Primary Dx); | | | | [phone] | | Leukocytosis; | | | | | Shad Gaston | Cellulitis and | | | | | GABRIEL Sepulveda [address] | abscess; | | | | | [address] [place], | Hyponatremia; | | | | | [place] [address] | Bradycardia; | | | | | [phone] | Unspecified | | | | | | essential | | | | | Prejoel Balta | hypertension | | | | | MD Shlomo [address] | | | | | | [address] | | | | | | [place] [address] | | | | | | [phone] | | | | | | | | | | | | Michela Umana MD | | | | | | [address] | | | | | | [place] | | | | | | [address] | | | | | | | [...] Fuentes MD - 12/29/2014 9:42 AM PDT [facility]G FACULTY HOSPITALIST DISCHARGE SUMMARY PATIENT NAME: Smitha Pichardo DATE OF : 1955 DATE OF ADMISSION: 12/26/2014 DATE OF DISCHARGE: 12/29/2014 PRIMARY CARE PHYSICIAN: Litzy Zaman FOLLOW UP: [facility] Schedule an appointment as soon as possible for a visit in 1 week [facility] [place] for Care Transition Intervention Care Transition Resort Manager: Jaymie Roman ext. 210 Care Operations Supervisor [employer] will contact patient within 3 days after discharge to schedule a home visit. [facility] [place] [address] [facility] [address] DISCHARGE DISPOSITION: home CONSULTANTS THIS ADMISSION: Orthopedics, Dr. Nelson Almanza [facility] COURSE: Ms. Pichardo is a 59 [...] this chart may have been created with [employer] voice recognition software. Occasi onal wrong-word or [...] Dtr . Will coordinate IV supplies with [facility]. Electronically signed by: Rhona Ledesma RN 12/29/2014 14:49 arylOksana - 12/29/2014 2:11 PM PDTPt ready for d ischarge today. IV Therapy arranged for Leonora to see pt . HH needed for RN, pt agreeable to [facility]. Referral made to [facility]. Pt needing to be seen by PCP at [facility] today to be see n by Leonora. SW arranged taxi to take pt and daughter to [facility]. SW will continue to follow and assist [...] by: Tracy Tristan RN 12/28/2014 15:07 lSherrie bender, PharmD - 12/28/2014 1:37 PM PDTFormatting of this note might be different from the origi nal. [facility] Progress Note VANCOMYCIN PER PHARMACY PROTOCOL: [...] signed by: Sherrie Blanchard PHARMD 12/28/2014 13:37 reugBalta aleman MD - 015 10:36 AM PDT [facility] PMG FACULTY HOSPITALIST PROGRESS NOTE PATIENT NAME: [...] several months at the direction of her immigration law specialist (She sees [place] [facility] as an outpatient) Leukocytosis Assessment & [...] this chart may have been created with [employer] voice recognition software. Occasi onal wrong-word or sound-alike substitutions may have occurred due to the inherent meyers itations of voice recognition software. Please read the chart carefully and recognize, using context, where these substitutions have occurred reugsch at, Balta Keenan MD - 12/27/2014 9:33 AM PDT [facility] FACULTY HOSPITALIST PROGRESS NOTE PATIENT NAME: [...] several months at the direction of her immigration law specialist (She sees [place] [facility] as an outpatient) Leukocytosis Assessment & [...] this chart may have been created with [employer] voice recognition software. Occasi onal wrong-word or sound-alike substitutions may have occurred due to the inherent meyers itations of voice recognition software. Please read the chart carefully and recognize, using context, where these substitutions have occurred Sherrie Qunitanilla, PharmD - 12/27/2014 2:48 AM PDTFormatting of this note might be different from solange barry. [facility] Progress Note VANCOMYCIN PER PHARMACY PROTOCOL: [...] | | | | | [place] [address] | | | | | | [phone] | | | | | | | | +--------+---------+ + + + | 10/28/ Office | Cardiology | Carol, | | | 2019 | Visit | | SALVATORE Moreno [address] | | | | | | [place], | | | | | | [place] [address] | | | | | | [phone] | | | | | | | [...] | + +--------+ + + + | BEATRIZ, WOUND, | STAT | 12/26/2014 | | [...] + + documented in this encounter Results Guided Vascular Access (01/11/2015 4:18 PM PDT) + + + | Narrative | Performed At | + + + | Abdullahi Palomino MD 01/11/2015 16:18 US - IV Date/Time: | [facility] | | 01/11/2015 16:16 Performed by: ABDULLAHI PALOMINO Authorized by: | | | BALTA FUENTES [facility] | | | MEDICAL Emergency Physician-Performed Ultrasound [...] included in any documentation of this study. Switchboard Manager and | | | Vehicle Modification Technician: Abdullahi Palomino MD | | + + [...] + + + | Glucose | 95Comment: [place] Islander | 65 - 99 mg/dL | [facility] [...] + | AMILCAR [facility]ARDONA | [address] | [place] [address] | | | [facility] | | | | | LABORATORY [...] [address] | [place] [address] | | | [facility] | | | | | LABORATORY [...] + + | YARELISDEMIEligio BRENDAN | [address] | [place] [address] | | | [facility] | | | | | LABORATORY | [...] + + + | Glucose | 98Comment: [place] Islander | 65 - 99 mg/dL | [facility] [...] + + | [facility] | [address] | [place] [address] | | | [facility] | | | | | LABORATORY [...] + + | AMILCAR CARDONA | [address] | [place] [address] | | | [facility] | | | | | LABORATORY | | | | + + + + + Magnesium (12/27/2014 5:08 AM PDT) + +-------+ + + + | Component | Value | Ref Range | Performed | Pathologist | | | | | At | Signature | + +-------+ + + + | Magnesium | 1.8 | 1.7 - 2.4 mg/dL | PROVIDEDEMIE | | | | [...] + + | YARELISDEMIEligio BRENDAN | [address] | [place] [address] | | | [facility] | | | | | LABORATORY | [...] SACRFAUSTO | [address] | [place] [address] | | | [facility] | | | | | LABORATORY | [...] + + | Glucose | 102 (H)Comment: [place]er | 65 - 99 mg/dL | [facility] [...] + | YARELISDEMIEligio CARDONA | [address] | [place] [address] | | | [facility] | | | | | LABORATORY | [...] + + | YARELISDEMIEligio CARDONA | [address] | [place] [address] | | | [facility] | | | | | LABORATORY | [...] + + | [facility] | [address] | [place] [address] | | | [facility] | | | | | LABORATORY | [...] + + | PROVIDEDEMIE [facility] | [address] | [place] [address] | | | [facility] | | | | | LABORATORY | [...] - 1.030 | [facility] | | | [place] | | | SACRED | | | [...] + | AMILCAR CARDONA | [address] | [place] [address] | | | [facility] | | | | | LABORATORY | [...] + + | YARELISDEMIEligio CARDONA | [address] | [place] [address] | | | [facility] | | | | | LABORATORY | [...] + + | Presley Dumont Results In 12/26/2014 10:46 PM PDT | | | [...] + | Presley Dumont Results In - 12/26/2014 10:44 PM PDT [...] + | [facility] | [address] | [place] [address] | | | [facility] | [...] + + | Glucose | 112 (H)Comment: [place] | 65 - 99 mg/dL | [facility] | | | | Diabetes Association | [...] + + | AMILCAR CARDONA | [address] | [place] [address] | | | [facility] | | | | [...] | + + + + + | AMILCRA CARDONA | [address] | [place] [address] | | | [facility] | | | | | LABORATORY | [...] + + | [facility] | [address] | [place] [address] | | | [facility] | [...] RESULT | Results called to: | | YINE | | | | CARLOS Morocho ON [...] + | AMILCAR CARDONA | [address] | [place] [address] | | | [facility] | | | | | LABORATORY | [...] -------- ---- | | | 12/26/2014 14:58 [facility] | | | Emergency -3 Skin Problem VISIT COUNT (1 YR.) Visits | | | Medicaid NE Dx Location ------ | | | --------- 2 0 [facility] | | | Center 1 0 [facility] | | | Center 1 0 [facility] | | | 4 0 Total Note: Visits | | | indicate total known visits. Medicaid NE Dx are the number of primary | | | diagnoses on the [facility]'s non-emergent dx list. | | | | | | --- Guidelines Source: [facility] Guidelines Date: | | | 09/06/2013 Care Recommendation: Care at [facility] | | | Health Past Medical [...] | | + +---------+ + + | [place] | | | | + +---------+ + + documented in this encounter Visit Diagnoses + + | Diagnosis | + + | Cellulitis and abscess - Primary Cellulitis and abscess of unspecified site | + + | Leukocytosis Leukocytosis, unspecified | + + | Hyponatremia Hyposmolality and/or hyponatremia | + + | Coronary atherosclerosis of unspecified type of vessel, [place] or graft | + + | Bradycardia Other specified cardiac dysrhythmias | + + | Unspecified essential hypertension | + + | ASHD (arteriosclerotic heart disease) Coronary atherosclerosis of unspecified type of | | vessel, [place] or graft | + + | Hypertension [...] | | | (Daily), First dose on [facility] | | | | | | | [...] | | | (Daily), First dose on [facility] | | | | | | | [...] | | | dose on Fri12/27/14 at 0900 | | AM PDT | [...] | | (NORCO) 5-325 mg per tablet 1- | | 15 1:01 | tablets | | | | tablet 1-2 tablet, Oral, EVERY 4 | | PM PDT | | | | | HOURS PRN, Pain, Starting Tue | | | | | | | 12/27/14 at 0239, If ineffective | | | | | | | use [place] 10/ if ordered. If | | | | [...] AM PDT | | | | | Fri12/27/14 at 0300, For 1 dose, | | [...] | | | | | modification) on Marycarmen 12/29/14 at | | | | | [...] PDT | | | | | Starting Fri12/27/14 at 0239, | | | | | | | First line agent, | | | | | | + +-------+ +------+---+---+ +---+---+ | | | +---+---+ + +-------+ +--------+---+---+ | potassium chloride (K-DUR) ER | Given | 12/28/19 | 40 mEq | | | | tablet 40 mEq 40 mEq, Oral, | | 15 11:04 | | | | | ONCE, Fri12/27/14 at 0745, For 1 | | AM [...]
--- OUTSIDE RECORDS SUMMARY | ~2019-08-21 | XMS | Encounter Summary ---
Demographics + + + | Address | [address] | | | [place] [address] | + + + | Home Phone [...] | Author | [facility] | | | and Ankitana | + + + | Organization | [facility] | | | and Ankitana [...] Providers + +------+ + | Care Manager Creative Services Name | Role | Phone | + [...] | | | CARE HX OF | [address] | [address] | | | | | CABG | [place]ATED | [place]ani [place], | | | | | Procedures | WAY | [place] | | | | | STEEL WORKER - NO YH | [place], | [address] | | | | | COVERAGE | [place] [address] | Phone: | | | | | EXCEPT IN | Phone: | [phone] | | | | | [facility]IR [facility] | [phone] | Fax: | | | | | | Fax: | [phone] | | | | | | [phone] | | +--------+--------+ + + + + Encounter Details +--------+---------+ + + + | Date | Type | Department | Care Team | Description | +--------+---------+ + + + | 10/01/ | Office | [facility] [place] | Mariangel Siddiqi, | Chest pain syndrome | | 2018 | Visit | CARDIOLOGY [address] | (Primary Dx); [facility] | | | | [place], | [place], | (arteriosclerotic | | | | [place] [address] | [place] [address] | heart disease); | | | | [phone] | [phone] | Mixed hyperlipidemia | | | | [...] when she was at home in [facility]. Her daughter found her and called the farmer and grazier. It took them about ten mintues for her to revive. She was doing prett y well between 2011 until recent when she went to [facility] in [place] on 06/08/18 because she was not feeling [...] chronic, stage II (GFR 60-89 ml/min) H/O CO (myocardial infarction) Hepatitis C Risk factors for obstructive sleep apnea Cardiac arrest with ventricular fibrillation MEDICAL, SURGICAL, AND PERSONAL HISTORY Past Surgical History: Procedure Laterality Date CARDIAC CATHERIZATION 05/11/2012 intra-aortic balloon pump placement, 05/11/12 CARDIAC CATHERIZATION Right 06/09/2018 Procedure: CV Cor Angio; Surgeon: Shad Schuler MD; Location: [facility] CV LAB CARDIAC CATHERIZATION Right 06/09/2018 Procedure: CV LHC; Surgeon: Shad Schuler MD; Location: [facility] CV LAB CARDIAC CATHERIZATION Right 06/09/2018 Procedure: CV LV; Surgeon: Shad Schuler MD; Location: [facility] CV LAB CATARACT REMOVAL Left 08/13/2018 [...] JU; Surgeon: Hemanth Webster MD; Loc ation: [facility] MAIN OR HYSTERECTOMY 1995 Family History [...] She lives with her daughter, Miriam, in [place]. She is on disability. She is a [...] arrest post unknown stenting in 2011 at [facility] in [place] B. Echocardiogram 2D , M-mode, Doppler and [...] i nferior and lateral castillo from prior CO, mild destinee infarct ischemia. LARGE SEVERE inferior a nd Lateral CO. By Shad Schuler MD G. Left heart cath on 06/09/18 shows, severely calcified coronaries with severe three-vessel CAD including 60% distal left main, 90% ostial circumflex, 99% proximal circumflex, obtuse marginal 4 and 5 disease, ostial and proximal 40% LAD, 95% ostial septal lift builder whole, 70% mid and distal LAD, 100% mid [...] She is in a class II of [place] Heart Association functional class. There is no [...] edited this note. China De La Cruz, Automotive Electrician Helper 10/01/2018 I, Mariangel Siddiqi MD, personally performed the services described in this documentation, as scribed in my presence and it is both accurate and complete. China De La Cruz Automotive Electrician Helper 10:48 Electronically signed by: Mariangel Siddiqi MD [facility] 10/01/2018 Portions of this chart may have been created with ChargeBee voice recognition software. Occasi onal wrong-word or [...] | | | | | [place] [address] | | | | | | [phone] | | | | | | | | +--------+---------+ + + + | 10/28/ | Office | Cardiology | Carol, | | | 2019 | Visit | | SALVATORE Moreno [address] | | | | | | [place], | | | | | | [place] [address] | | | | | | [phone] | | | | | | | [...] MD | | | | | | ([id number]) on 10/01/2018 | | | | | [...] of unspecified type of | | vessel, telida or graft | + + | Mixed hyperlipidemia | + + documented in this encounter
--- OUTSIDE RECORDS SUMMARY | ~2019-08-21 | XMS | Encounter Summary ---
Demographics + + + | Address | [address] | | | [place] [address] | + + + | Home Phone [...] | Author | [facility] | | | and Ankitana | + + + | Organization | [facility] | | [...] Team Providers + +------+ + | Care Auto Wheel Alignment Specialist Name | Role | Phone | [...] | | | | [address] | [phone] | | | | | [place] | | | | | | [address] | | | | | | [phone] | | | +--------+ + + + [...] | | | | | [place] [address] | | | | | | [phone] | | | | | | | | +--------+---------+ + + + | 10/28/ | Office | Cardiology | Carol, | | | 2020 | Visit | | SALVATORE Moreno [address] | | | | | | [place], | | | | | | [place] [address] | | | | | | [phone] | | | | | | | | +--------+---------+ + + + documented as of this encounter Visit Diagnoses Not on filedocumented in this encounter"
--- OUTSIDE RECORDS SUMMARY | ~2019-08-21 | XMS | Encounter Summary ---
Demographics + + + | Address | [address] | | | [place] [address] | + + + | Home Phone [...] | Author | [facility] | | | and Ankitana | + + + | Organization | [facility] | | | [...] Team Providers + +------+ + | Care Seasonal Driver Name | Role | Phone | + +------+ + | [place], [facility] | PCP | | + [...] [place] | | | | | [address] | [address] | | | | | [phone] | | | +--------+ + + + [...] | | | | | | [place] [address] | | | | | | [phone] | | | | | | | | +--------+---------+ + + + | 10/28/ | Office | Cardiology | Carol, | | | 2019 | Visit | | SALVATORE Moreno [address] | | | | | | [place], | | | | | | [place] [address] | | | | | | [phone] | | | | | | | [...]
--- OUTSIDE RECORDS SUMMARY | ~2019-08-21 | XMS | Encounter Summary ---
Demographics + + + | Address | [address] | | | [place] [address] | + + + | Home Phone [...] | Author | [facility] | | | and Ankitana | + + + | Organization | [facility] [...] Team Providers + +------+ + | Care Software Applications Architect Name | Role | Phone | [...] | [address] | [place] [address] | (Primary Dx) | | | | [address] | [phone] | | | | | [address] | | | | | | [phone] | | | +--------+---------+ + + + [...] at home. Do n tlift anything heavier [id number]. Your healthcare provider may give you a [...] the hospital, begin with short wal ks ([id number]) at home. Go a little longer each [...] urinating Any unusual bleeding Date Last Reviewed: 07/06/201619991560-4014 [employer]. [address] [place] [address]. All [facility] reserved. This information is not intended as a substitute for professional medical care. Always follow your healthcare professional's instructions. documented in this encounter Progress Notes Jayne Rayo ARNP - 06/29/2018 11:30 AM PDTFormatting of this note might be differ ent from the original. [facility] Post-Operative Visit Pt. Name/Age/: Smitha Fletcher 62 y.o. 1955 Med. Record Number: [id number] Date of Service: 06/29/2018 Primary procedure: 1. [...] a new PCP in her local area ([place], [place]) SUBJECTIVE: The chart and medications were [...] questions are related to postoperative restrictions/limitations and hcilo oing sternal precautions. She is gradually resuming [...] condition Electronically signed by: SALVATORE Restrepo, SHANA, CLINICAL NURSE LEADER-C 06/29/2018 10:18 Jayne Rayo DNP, CLINICAL NURSE LEADER-C Cardiothoracic Surgery [facility] [place] [facility] [address], [address] [place] [address] Portions of this chart may have been created with PlayCafe voice recognition software. Occasi onal wrong-word or [...] | | | | | | [place] [address] | | | | | | [phone] | | | | | | | | +--------+---------+ + + + | 10/28/ | Office | Cardiology | Carol, | | | 2019 | Visit | | SALVATORE Moreno [address] | | | | | | [place], | | | | | | [place] [address] | | | | | | [phone] | | | | | | | | +--------+---------+ + + + documented as of this encounter Visit Diagnoses + + | Diagnosis | + + | Status post three vessel coronary artery bypass - Primary Postsurgical aortocoronary | | bypass status | + + documented in this encounter"
--- OUTSIDE RECORDS SUMMARY | ~2019-08-21 | XMS | Encounter Summary ---
Demographics + + + | Address | [address] | | | [place] [address] | + + + | Home Phone | | + + + | Preferred Language | Unknown | + + + | Marital Status | | + + + | Jew Affiliation | 1041 | + + + | Race | Unknown | + + + | Ethnic Group | Unknown | + + + Author + + + | Author | [facility] | | | and Ankitana | + + + | Organization | [facility] | [...] Providers + +------+ + | Care Safety Risk Lead Name | Role | Phone | [...] | | | | | [place] | [address] | | | | | [place] | | | | | | [address] | | | | | | [phone] | | | +--------+ + + + [...] | | | | | [place] [address] | | | | | | [phone] | | | | | | | | +--------+---------+ + + + | 10/28/ | Office | Cardiology | Carol, | | | 2019 | Visit | | SALVATORE Moreno [address] | | | | | | [place], | | | | | | [place] [address] | | | | | | [phone] | | | | | | | | +--------+---------+ + + + documented as of this encounter Visit Diagnoses Not on filedocumented in this encounter"
--- OUTSIDE RECORDS SUMMARY | ~2019-08-21 | XMS | Encounter Summary ---
Demographics + + + | Address | [address] | | | [place] [address] | + + + | Home Phone [...] Author | [facility] | | | and nAkitana | + + + | Organization | [facility] | [...] Team Providers + +------+ + | Care Jewelry Technician Name | Role | Phone | [...] | | | | unspecified | | [address] | | | | | type of | | Phone: | | | | | vessel, | | [phone] | | | | | osage or | | Fax: | | | | | graft | | [phone] | | | | | Hyponatremia | [...] + + | 12/26/ | Hospital | [facility] | Ignacio Turcios, | Coronary | | 2015 - | Encounter | [facility] | [address] | atherosclerosis of | | | | MEDICAL [address] | [place], | unspecified type of | | 12/29/ | | Ave [place] | [place] [address] | vessel, osage or | | 2014 | | [address] | [phone] | graft (Primary Dx); | | | | [phone] | | Leukocytosis; | | | | | Shad Gaston | Cellulitis and | | | | | GABRIEL Sepulveda [address] | abscess; | | | | | [address] [place], | Hyponatremia; | | | | | [place] [address] | Bradycardia; | | | | | [phone] | Unspecified | | | | | | essential | | | | | Prejoel Balta | hypertension | | | | | MD Shlomo [address] | | | | | | [address] | | | | | | [place] [address] | | | | | | [phone] | | | | | | | | | | | | Michela Umana MD | | | | | | [address] | | | | | | [place] | | | | | | [address] | | | | | | | [...] Fuentes MD - 12/29/2014 9:42 AM PDT [facility]G FACULTY HOSPITALIST DISCHARGE SUMMARY PATIENT NAME: Smitha Pichardo DATE OF : 1955 DATE OF ADMISSION: 12/26/2014 DATE OF DISCHARGE: 12/29/2014 PRIMARY CARE PHYSICIAN: Litzy Zaman FOLLOW UP: [facility] Schedule an appointment as soon as possible for a visit in 1 week [facility] [place] for Care Transition Intervention Care Transition Grit Blaster: Jaymie Roman ext. 210 Care Manager Dental will contact patient within 3 days after discharge to schedule a home visit. [facility] [place] [address] [facility] [address] DISCHARGE DISPOSITION: home CONSULTANTS THIS ADMISSION: Orthopedics, Dr. Nelson Almanza [facility] COURSE: Ms. Pichardo is a 59 [...] this chart may have been created with RIDERS voice recognition software. Occasi onal wrong-word or [...] needing to be seen by PCP at [facility] today to be see n by Leonora. SW arranged taxi to take pt and daughter to [facility]. SW will continue to follow and assist [...] might be different from the origi nal. [facility] Progress Note VANCOMYCIN PER [...] aleman MD - 015 10:36 AM PDT [facility] PMG FACULTY HOSPITALIST PROGRESS NOTE [...] several months at the direction of her manager wellness (She sees [facility] cardiology as an outpatient) Leukocytosis Assessment & [...] this chart may have been created with RIDERS voice recognition software. Occasi onal wrong-word or sound-alike substitutions may have occurred due to the inherent meyers itations of voice recognition software. Please read the chart carefully and recognize, using context, where these substitutions have occurred reugsch at, Balta Keenan MD - 12/27/2014 9:33 AM PDT [facility] FACULTY HOSPITALIST PROGRESS NOTE PATIENT NAME: Smitha [...] several months at the direction of her manager wellness (She sees [facility] cardiology as an outpatient) Leukocytosis Assessment & [...] this chart may have been created with RIDERS voice recognition software. Occasi onal wrong-word or sound-alike substitutions may have occurred due to the inherent meyers itations of voice recognition software. Please read the chart carefully and recognize, using context, where these substitutions have occurred Sherrie Quinatnilla, PharmD - 12/27/2014 2:48 AM PDTFormatting of this note might be different from solange barry. [facility] Progress Note VANCOMYCIN PER PHARMACY [...] | | | | | [place] [address] | | | | | | [phone] | | | | | | | | +--------+---------+ + + + | 10/28/ Office | Cardiology | Carol, | | | 2019 | Visit | | SALVATORE Moreno [address] | | | | | | [place], | | | | | | [place] [address] | | | | | | [phone] | | | | | | | [...] Authorized by: | | | BALTA FUENTES [facility] | | | MEDICAL Emergency Physician-Performed Ultrasound [...] included in any documentation of this study. Trolley Operator and | | | Cherry Sorter: Abdullahi Palomino MD | | + + [...] + + + | Glucose | 95Comment: Martiniquais | 65 - 99 mg/dL | [facility] [...] + | AMILCAR CARDONA | [address] | [place] [address] | | | [facility] | [...] [address] | [place] [address] | | | [facility] | [...] + + | YARELISDEMIEligio BRENDAN | [address] | [place] [address] | | | [facility] | | | | | [...] + + + | Glucose | 98Comment: Martiniquais | 65 - 99 mg/dL | [facility] [...] + | AMILCAR SACRED | [address] | [place] [address] | | | [facility] | [...] + + | AMILCAR CARDONA | [address] | [place] [address] | | | [facility] | [...] + + | YARELISDEMIEligio BRENDAN | [address] | [place] [address] | | | [facility] | | | | | [...] SACRFAUSTO | [address] | [place] [address] | | | [facility] | | | | | [...] + + | Glucose | 102 (H)Comment: Martiniquais | 65 - 99 mg/dL | [facility] [...] + | YARELISDEMIEligio CARDONA | [address] | [place] [address] | | | [facility] | | | | | [...] + + | YARELISDEMIEligio CARDONA | [address] | [place] [address] | | | [facility] | | | | | [...] + + | [facility]ENCE SACRED | [address] | [place] [address] | | | [facility] | | | | | [...] + + | PROVIDEDEMIE SACRED | [address] | [place] [address] | | | [facility] | | | | | [...] - 1.030 | [facility] | | | [place] | | | SACRED | | | [...] + | AMILCAR CARDONA | [address] | [place] [address] | | | [facility] | | | | | [...] + + | YARELISDEMIEligio CARDONA | [address] | [place] [address] | | | [facility] | | | | | [...] + | [facility] SACR[facility] | [address] | [place] [address] | | | [facility] | [...] + + | Glucose | 112 (H)Comment: Martiniquais | 65 - 99 mg/dL | [facility] | | | | Diabetes Association | [...] + + | AMILCAR CARDONA | [address] | [place] [address] | | | [facility] | | | | | [...] + + | AMILCAR CARDONA | [address] | [place] [address] | | | [facility] | | | | | [...] + + | [facility] SACRED | [address] | [place] [address] | | | [facility] | [...] + | AMILCAR CARDONA | [address] | [place] [address] | | | [facility] | | | | | [...] -------- ---- | | | 12/26/2014 14:58 [facility] | | | Emergency -3 Skin Problem VISIT COUNT (1 YR.) Visits | | | Medicaid NE Dx Location ------ | | | --------- 2 0 [facility] | | | Center 1 0 [facility] | | | Center 1 0 [facility] | | | 4 0 Total Note: Visits | | | indicate total known visits. Medicaid NE Dx are the number of primary | | | diagnoses on the [facility]'s non-emergent dx list. | | | | | | --- Guidelines Source: [facility] Guidelines Date: | | | 09/06/2013 Care Recommendation: Care at [facility] | | | Health Past Medical [...] Coronary atherosclerosis of unspecified type of vessel, osage or graft | + + | Bradycardia Other specified cardiac dysrhythmias | + + | Unspecified essential hypertension | + + | ASHD (arteriosclerotic heart disease) Coronary atherosclerosis of unspecified type of | | vessel, osage or graft | + + | Hypertension [...] | | | (Daily), First dose on [facility] | | | | | | | [...] | | | (Daily), First dose on [facility] | | | | | | | [...] | | | | | | use [place] 10/ if ordered. If | | | [...]
--- OUTSIDE RECORDS SUMMARY | ~2019-08-21 | XMS | Encounter Summary ---
Demographics + + + | Address | [address] | | | [place] [address] | + + + | Home Phone | | + + + | Preferred Language | Unknown | + + + | Marital Status | | + + + | Mandaen Affiliation | 1041 | + + + | Race | Unknown | + + + | Ethnic Group | Unknown | + + + Author + + + | Author | [facility] | | | and Ankitana | + + + | Organization | [facility] | [...] Team Providers + +------+ + | Care Fraud Examiner Name | Role | Phone | + [...] | | | | [address] [facility] | [place] | | | | | [address] [place] [address] | [place] [address] | | | | | [address] | | | | | | [phone] | | | +--------+ + + + [...] | | | | | [place] [address] | | | | | | [phone] | | | | | | | | +--------+---------+ + + + | 10/28/ | Office | Cardiology | Carol, | | | 2019 | Visit | | SALVATORE Moreno [address] | | | | | | [place], | | | | | | [place] [address] | | | | | | [phone] | | | | | | | | +--------+---------+ + + + documented as of this encounter Visit Diagnoses Not on filedocumented in this encounter"
--- OUTSIDE RECORDS SUMMARY | ~2019-08-21 | XMS | Encounter Summary ---
Demographics + + + | Address | [address] | | | [place] [address] | + + + | Home Phone | | + + + | Preferred Language | Unknown | + + + | Marital Status | | + + + | Zoroastrianism Affiliation | 1041 | + + + | Race | Unknown | + + + | Ethnic Group | Unknown | + + + Author + + + | Author | [facility] | | | and Ankitana | + + + | Organization | [facility] | [...] Providers + +------+ + | Care Senior Qa Automation Engineer Name | Role | Phone | [...] | | | | | apnea) | [place] | [place], [place] | | | | | | [place], | [address] Phone: | | | | | | [place] | [phone] | | | | | | [address] | Fax: | | | | | | Phone: | [phone] | | | | | | [phone] | | | | | | | Fax: | | | | | | | [phone] | | +--------+ + + + + [...] + + | 10/22/ | Office | [facility] | Carol, | Hypertension, | | 2019 | Visit | CARDIOLOGY [address] | SALVATORE Moreno [address] | unspecified type | | | | [place], | [place], | (Primary Dx); | | | | [place] [address] | [place] [address] | Ischemic | | | | [phone] | [phone] | cardiomyopathy; | | | | | [...] chronic, stage II (GFR 60-89 ml/min) H/O [place] (myocardial infarction) Hepatitis C Risk factors for [...] Abnormal ECG Confirmed by MARIANGEL WALTON MD ([id number]) on 10/01/2018 12:13:49 PM none done today LAB RESULTS reviewed during visit today primarily from [facility]: LIPID No results found for: CHOL, [...] Value 06/09/2018 37 I reviewed records from [facility] for office visit on 10/01/2018 w hich is summarized in the HPI. RESULTS- I reviewed reports from [facility]: No results found. Above data and testing is reviewed this visit; testing below is historical data unless othe rwise specified. ASSESSMENT: 1. Coronary artery disease with ischemia cardiomyopathy A. History cardiac arrest post unknown stenting in 2011 at [facility] in [place] B. Echocardiogram 2D , M-mode, Doppler and [...] the inferior and lateral castillo from prior [place], mild edstinee infarct ischemia. LARGE SEVERE inferior and Lateral MO. By Shad Schuler MD G. Left heart [...] unction. Trace TR, pulmonic valve normal Trace VT, visible portions of ascending aorta and a [...] She is in class II of the [place] Heart Association functional class. [...] 1. She will have echocardiogram checked in [facility] 2. Increase Metoprolol XL 100 mg [...] ejection fraction. [facility]. Portions of this chart may have been created with Statzup voice recognition software. Occasi onal wrong-word or [...] | | | | | [place] [address] | | | | | | [phone] | | | | | | | | +--------+---------+ + + + | 10/28/ | Office | Cardiology | Carol, | | | 2019 | Visit | | SALVATORE Moreno [address] | | | | | | [place], | | | | | | [place] [address] | | | | | | [phone] | | | | | | | [...] of unspecified type of | | vessel, [place] or graft | + + | PATRICE (obstructive sleep apnea) Obstructive sleep apnea (adult) (pediatric) | + + documented in this encounter
--- OUTSIDE RECORDS SUMMARY | ~2019-08-21 | XMS | Encounter Summary ---
Demographics + + + | Address | [address] | | | [place] [address] | + + + | Home Phone [...] | Author | [facility] | | | and Ankitana | + + + | Organization | [facility] [...] Team Providers + +------+ + | Care Clicking Machine Operator Name | Role | Phone [...] | | | | [address] | [phone] | | | | | [place] | | | | | | [address] | | | | | | [phone] | | | +--------+ + + + [...] | | | | | | [place] [address] | | | | | | [phone] | | | | | | | | +--------+---------+ + + + | 10/28/ | Office | Cardiology | Carol, | | | 2020 | Visit | | SALVATORE Moreno [address] | | | | | | [place], | | | | | | [place] [address] | | | | | | [phone] | | | | | | | | +--------+---------+ + + + documented as of this encounter Visit Diagnoses Not on filedocumented in this encounter"
--- OUTSIDE RECORDS SUMMARY | ~2019-08-21 | XMS | Encounter Summary ---
Demographics + + + | Address | [address] | | | [place] [address] | + + + | Home Phone [...] Author | [facility] | | | and Ankitana | + + + | Organization | [facility] | | | and [...] Team Providers + +------+ + | Care Textile Screen Maker Name | Role | Phone | [...] [address] | | | | | [place] [address] | [facility] | | | | | [facility] | [address] [place] | | | | | [place] | [address] | | | | | [address] | | | | | | [phone] | | | +--------+ + + + [...] | | | | | [place] [address] | | | | | | [phone] | | | | | | | | +--------+---------+ + + + | 10/28/ | Office | Cardiology | Carol, | | | 2019 | Visit | | SALVATORE Moreno [address] | | | | | | [place], | | | | | | [place] [address] | | | | | | [phone] | | | | | | | | +--------+---------+ + + + documented as of this encounter Visit Diagnoses Not on filedocumented in this encounter"
--- OUTSIDE RECORDS SUMMARY | ~2019-08-21 | XMS | Encounter Summary ---
Demographics + + + | Address | [address] | | | [place] [address] | + + + | Home Phone [...] | Author | [facility] | | | and Ankitana | + + + | Organization | [facility] | | | and [...] Providers + +------+ + | Care Physical Security Engineer Name | Role | Phone | + +------+ + | Kiran Oneill DO | PCP | | + +------+ + Encounter Details +--------+ + + + + | Date | Type | Department | Care Team | Description | +--------+ + + + + | 12/26/ | Abstract | [facility] | Provider, | Cardiac arrest with | | 2018 | | CARDIOLOGY [address] | [address] | ventricular | | | | [place], | [address] | fibrillation (HCC) | | | | [place] [address] | [place] [address] | | | | | [phone] | | | +--------+ + + + [...] | | | | | | [place] [address] | | | | | | [phone] | | | | | | | | +--------+---------+ + + + | 10/28/ | Office | Cardiology | Carol, | | | 2019 | Visit | | SALVATORE Moreno [address] | | | | | | [place], | | | | | | [place] [address] | | | | | | [phone] | | | | | | | | +--------+---------+ + + + documented as of this encounter Visit Diagnoses + + | Diagnosis | + + | Cardiac arrest with ventricular fibrillation (HCC) | + + documented in this encounter"
--- OUTSIDE RECORDS SUMMARY | ~2019-08-21 | XMS | Encounter Summary ---
Demographics + + + | Address | [address] | | | [place] [address] | + + + | Home Phone [...] | [facility] | | | and Ankitana | + + + | Organization | [facility] | | [...] Team Providers + +------+ + | Care Java Developer Name | Role | Phone | [...] | | | | [address] | [phone] | | | | | [place] | | | | | | [address] | | | | | | [phone] | | | +--------+ + + + [...] | | | | | | [place] [address] | | | | | | [phone] | | | | | | | | +--------+---------+ + + + | 10/28/ | Office | Cardiology | Carol, | | | 2020 | Visit | | SALVATORE Moreno [address] | | | | | | [place], | | | | | | [place] [address] | | | | | | [phone] | | | | | | | | +--------+---------+ + + + documented as of this encounter Visit Diagnoses Not on filedocumented in this encounter"
--- OUTSIDE RECORDS SUMMARY | ~2019-08-21 | XMS | Encounter Summary ---
Demographics + + + | Address | [address] | | | [place] [address] | + + + | Home Phone [...] Author | [facility] | | | and Ankitana | + + + | Organization | [facility] | | | and [...] Team Providers + +------+ + | Care Jalousie Installer Name | Role | Phone | + +------+ + PCP | Unavailable | + +------+ + Encounter Details +--------+ + + + + | Date | Type | Department | Care Team | Description | +--------+ + + + + | 05/27/ | Hospital | [facility] | Mani Schneider MD | | | 2012 - | Encounter | [facility] | [address] | | | | | [facility] [address] | | | 09/21/ | | [facility] [address] | [place], [place] | | | 2012 | | [place] | [address] | | | | | [address] | | | | | | [phone] | | | +--------+ + + + [...] | | | | | [place] [address] | | | | | | [phone] | | | | | | | | +--------+---------+ + + + | 10/28/ | Office | Cardiology | Carol, | | | 2019 | Visit | | SALVATORE Moreno [address] | | | | | | [place], | | | | | | [place] [address] | | | | | | [phone] | | | | | | | | +--------+---------+ + + + documented as of this encounter Visit Diagnoses Not on filedocumented in this encounter"
--- OUTSIDE RECORDS SUMMARY | ~2019-08-21 | XMS | Encounter Summary ---
Demographics + + + | Address | [address] | | | [place] [address] | + + + | Home Phone [...] Author | [facility] | | | and Ankitana | + + + | Organization | [facility] | [...] Team Providers + +------+ + | Care Transfer And Line Up Worker Name | Role | Phone | [...] | | | CENTER [address] | [place], [place] | | | | | [address] | [address] | | | | | [place] | | | | | | [address] | | | | | | [phone] | | | +--------+ + + + [...] | | | | | [place] [address] | | | | | | [phone] | | | | | | | | +--------+---------+ + + + | 10/28/ | Office | Cardiology | Carol, | | | 2019 | Visit | | SALVATORE Moreno [address] | | | | | | [place], | | | | | | [place] [address] | | | | | | [phone] | | | | | | | | +--------+---------+ + + + documented as of this encounter Visit Diagnoses Not on filedocumented in this encounter"
--- OUTSIDE RECORDS SUMMARY | ~2019-08-21 | XMS | Encounter Summary ---
Demographics + + + | Address | [address] | | | [place] [address] | + + + | Home Phone [...] Author | [facility] | | | and Ankitana | + + + | Organization | [facility] [...] Providers + +------+ + | Care Hotel Baggage Handler Name | Role | Phone | [...] | | CARDIOLOGY [address] | Tiffanie SCRAP DROP OPERATOR [address] | | | | | [place], | [place], | | | | | [place] [address] | [place] [address] | | | | | [phone] | [phone] | | | | | | | [...] | | | | | | [place] [address] | | | | | | [phone] | | | | | | | | +--------+---------+ + + + | 10/28/ | Office | Cardiology | Carol, | | | 2019 | Visit | | SALVATORE Moreno [address] | | | | | | [place], | | | | | | [place] [address] | | | | | | [phone] | | | | | | | [...] +--------+ + + + | EXTERNAL LAB: [facility] | Routin | 10/14/2018 | | Results [...] +--------+ + + + | EXTERNAL LAB: [facility] | Routin | 10/14/2018 | | Results [...]
--- OUTSIDE RECORDS SUMMARY | ~2019-08-21 | XMS | Encounter Summary ---
Demographics + + + | Address | [address] | | | [place] [address] | + + + | Home Phone [...] + + | Author | [facility] | | | and Ankitana | + + + | Organization | [facility] [...] Team Providers + +------+ + | Care Prints And Drawings Curator Name | Role | Phone | + [...] | | | CENTER [address] | [place], [place] | | | | | [address] | [address] | | | | | [place] | | | | | | [address] | | | | | | [phone] | | | +--------+ + + + [...] | | | | | | [place] [address] | | | | | | [phone] | | | | | | | | +--------+---------+ + + + | 10/28/ | Office | Cardiology | Carol, | | | 2019 | Visit | | SALVATORE Moreno [address] | | | | | | [place], | | | | | | [place] [address] | | | | | | [phone] | | | | | | | | +--------+---------+ + + + documented as of this encounter Visit Diagnoses Not on filedocumented in this encounter"
--- OUTSIDE RECORDS SUMMARY | ~2019-08-21 | XMS | Encounter Summary ---
Demographics + + + | Address | [address] | | | [place] [address] | + + + | Home Phone [...] Author | [facility] | | | and Ankitana | + + + | Organization | [facility] | | | and Ankitana | + [...] Team Providers + +------+ + | Care Loft Worker Name | Role | Phone | [...] [place] | | | | | | [address] | [address] | | | | | | Phone: | Phone: | | | | | | [phone] | [phone] | | | | | | Fax: | Fax: | | | | | | [phone] | [phone] | +--------+ + + + + + [...] | | | | | (non-ST | 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 [address] | | | | | | elevated | [address] | | | | | | myocardial | [place], | | | | | | infarction) | [place] | | | | | | ([facility]) | Phone: | | | | | | Procedures | [phone] | | | | | | DME: Walker | Fax: | | | | | | | [phone] | | +--------+--------+ + + + + [...] | Required | n | (non-ST | 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 OPERATOR [address] | REHABILITATIO | | | | | elevated | [address] | [address] | | | | | myocardial | [place], | [place] | | | | | infarction) | [place] | [place] | | | | | ([facility]) | Phone: | [phone] | | | | | | [phone] | Phone: | | | | | | Fax: | [phone] | | | | | | [phone] | Fax: | | | | | | | [phone] | +--------+ + + + + + [...] | | | | | ([facility]) | | | | | | [...] | | | | | ([facility]) | | | | | | [...] + + | 06/07/ | Hospital | [facility] | [place], | S/P CABG x 3 | | 2018 - | Encounter | [facility] | [address] | (Primary Dx); NSTEMI | | | | CARDIAC TRANSPLANT | [place] [address] | (non-ST elevated | | 06/15/ | | [address] | [phone] | myocardial | | 2018 | | [place] | | infarction) (HCC); | | | | [address] | PefEmma chase MD | Methamphetamine | | | | [phone] | [address], | abuse; Opiate abuse, | | | | | 9th floor [place], | continuous; | | | | | [place] [address] | Marijuana abuse; | | | | | [phone] | Non-intractable | | | | | | cyclical vomiting | | | | | Michael Olson MD [address] | with nausea; | | | | | [address] | Esophagitis; Chest | | | | | FLOOR [place] | pain syndrome; ASHD | | | | | [address] | (arteriosclerotic | | | | | | heart disease); | | | | | Friendshuh, Kathie, | Essential | | | | | [address] | hypertension; | | | | | AVE [place] | Methamphetamine use; | | | | | [address] | Marijuana use; | | | | | | Troponin level | | | | | Hemanth Webster | elevated; Ischemic | | | | | MD Veronica [address] | cardiomyopathy; | | | | | [address] [place] | Chronic GERD; | | | | | [address] | Elevated troponin | | | | [...] and gave patient number for [facility] pharmacy to transfer medications in AM. Given night time pain medications prior to leaving . The AVS was reviewed with patient and family with no pending questions or concerns. All b elongings were collected from the room and sent with the family. The pt is discharging home with family in [place]. New FWW sent with patient. No further questions and all teaching demo nstrated back to RN. Plan for d/c at 1800 when family arrives. Juancho Dalal AR LABOR ECONOMICS TEACHER - 06/15/2018 12:01 PM PDT [facility] Discharge Summary [...] before arriving at the ER and our professor of social work has confirmed that she is free to [...] and occupational therapy for post-op rehab. - [place] [facility]. Disposition: Home with family. Patient was advised to call our office or their set up mechanic stamping machines with any questions. Follow-Up: Follow-up Information SALVATORE Ventura. Go on 06/23/2018. Specialty: Nurse Practitioner Why: Hospital follow up scheduled at 11:[address] Roa Contact information: [address] [facility] [address] [phone] Hemanth Webster MD. Schedule an appointment as soon as possible for a visit on 06/29/2018 . Specialty: Cardiothoracic Surgery Why: 11:30 AM Contact information: [address] [facility] [address], [facility] [address] [facility] [address] Schedule an appointment as soon as possible for a visit with [facility]. Why: Please call to schedule your 1 month follow-up with cardiology. Contact information: [address] [place] [phone] Time spent on discharge planning: greater than 30 minutes CABG Checklist ACEI/ARB/ARNI prescribed: No - Hypotension Aspirin prescribed: Not addressed Beta mateus (evidence-based) prescribed: Yes Beta mateus prescribed: N/A - LV EF is less than 41% High intensity statin prescribed: Yes Referral to cardiac rehab: Yes Tobacco cessation counseling provided: Yes [facility] [address] [place] [id number] Portions of this chart may have been created with [employer] voice recognition software. Occasi onal wrong-word or [...] breath, please call Luis Alfredo estrada at [phone]. 2. For problems or concerns with your incision or your chest, please call [facility] [place] [facility] (Surgery) at [phone]. After Coronary Artery Bypass Surgery When you [...] by medication, call your healthcare pr fuad. [phone] Darrell Gallegos, [address] [place] [address], [place] [address]. All rights reserve d. This information is [...] | | | | | | infarction) ([facility]), | | | | | | | Polysubstance abuse | | | | | | | ([facility]) | | | | | | [...] bedside. Pt states she was brought to [facility] by [facility] but states she is no l onger in custody. No guards at the door. SW Game Warden suggested SW contact [facility]pc to confirm. SW spoke with [facility] who confirms pt was released. SW spoke with pt regarding discharge plan. Pt plans to discharge to friend's home. SW available should further discharg e planning needs arise. Keith Lopez MD - 06/15/2018 8:45 AM PDT [facility] PATIENT NAME: Smitha Fletcher : 1955: [...] Follow-up requested. Keith Harp MD, [facility] Cardiology Portions of this chart were created with [employer] voice recognition software. Occasional wro ng-word or "sound-alike" substitutions may have occurred due to the inherent limitations of voice recognition software. Please read the chart carefully and recognize, using context, w here those substitutions have occurred. Deonte Ray MD - 06/15/2018 7:15 AM PDTFormatting of this no te might be different from the original. [facility] Pt. Name/Age/: Smitha Fletcher 62 y.o. 1955 Med. Record Number: [id number] Date of admission: 06/07/2018 POD # 4 Procedure: CABG X 3 Surgeon: Eleanor Subjective New complaints: poor sternal precautions. No c/o this morning. Acknowledges that came from [facility]. Not sure where she is going. [...] signed by: Hector Decker PA-C Cardiothoracic Surgery [facility] [address], [place] [address] [place], [place] [id number] 06/15/2018 7:15 [facility] Agree with detailed plan nicely outlined [...] has been completed. Please contact us at [phone] should the need arise. Thank you for [...] signed by: Rip Yao M.D. CardioThoracic Surgery [facility] 06/14/2018 9:23 [facility] Pt. Name/Age/: Smitha Fletcher 62 y.o. 1955 Med. Record Number: [id number] Date of admission: 06/07/2018 POD # 3 [...] with the patient is going. Willl have professor of social work start arrangements. Problem List Patient Active Problem [...] signed by: Hector Decker PA-C Cardiothoracic Surgery [facility] [address], [address] [place] [address] 06/14/2018 8:59 [facility] Dave Hill MD - 06/14/2018 8:07 AM PDT [facility] PATIENT NAME: Smitha Fletcher : 1955: [...] Portions of this chart were created with [employer] voice recognition software. Occasional wro ng-word or [...] Per RN; she will be discharging from [facility] to [facility] that she came from. Assessment [...] by: SALVATORE Elias 06/13/2018 14:53 Diabetes team, [facility] [phone] Amaury Hill MD - 06/13/2018 10:27 AM PDTFormatting of this note might be different from the origi nal. [facility] PATIENT NAME: Smitha Fletcher : 1955: [...] Portions of this chart were created with [employer] voice recognition software. Occasional wro ng-word or [...] signed by: Rip Yao M.D. CardioThoracic Surgery [facility] 06/13/2018 9:35 [facility] Pt. Name/Age/: Smitha Fletcher 62 y.o. 1955 Med. Record Number: [id number] Date of admission: 06/07/2018 POD #2 Procedure: [...] signed by: Hector Decker PA-C Cardiothoracic Surgery [facility] [address], [address] [place] [address] 06/13/2018 8:11 [facility] Kezia Downing RN - 06/12/2018 3:10 [...] discharge planning. ASSESSMENT/CHART REVIEW: Pt resides in [place]. She has Medicare coverage. COPD, is risk for readmission. If pt d oes not need placement she may benefit from home health post acute care. D/C TRANSPORT: TBD BARRIERS TO D/C: Medical stability CONTACTS: Hanna Sethi: [phone] signed by JEFFY Cabrales at 06/12/2018 1 2:24 PM PDTDave Bansal MD - 06/12/2018 11:33 AM PDTFormatting of this note might b e different from the original. [facility] PATIENT NAME: Smitha Fletcher : [...] 1.0 0.4 - 1.5 % Comment PS8 VZX127 O2 Content, Arterial 15.7 15.0 - 23.0 [...] 22:29 Result Value Ref Range Product Code Q1325B62 UNIT # [id number] UNIT ABO O UNIT RH NEG CROSSMATCH INTERP Compatible Unit Status XM Blood Product Expiration Date and Time Product Blood Type Barcode 9500 Product Code M0010M62 UNIT # [id number] UNIT ABO O UNIT RH NEG CROSSMATCH [...] 6:53 Result Value Ref Range Product Code B2420T51 UNIT # [id number] UNIT ABO O UNIT RH NEG CROSSMATCH INTERP Compatible Unit Status XM Blood Product Expiration Date and Time [id number] Product Blood Type Barcode 9500 POC Glucose [...] Duvall MD - 06/12/2018 10:12 AM PDT [facility] Hemanth Webster [...] Date of Service: 06/10/2018 PCP: Yolanda Lee [facility] Hospital Day: 1 Hospital Course: This is a 62 y.o.femalewith hx substance abuse, [place] and stent placement [place] [address] Brittnee Sandoval cardiology. [facility], complaining of severe 8-10 burning chest pain [...] - Single Lumen 06/10/18 1446 Right Forearm uscq-hxw-nzviey catheter sys tem 22 gauge;1 in length [...] - 99 mg/dL Final Comment: Performed by [facility] [address] [place] [address] All pertinent labs and imaging have been [...] this chart may have been created with [employer] voice recognition software. Occasi onal wrong-word or sound-alike substitutions may have occurred due to the inherent meyers itations of voice recognition software. Please read the chart carefully and recognize, using context, where these substitutions have occurred Brenna Henderson, Mi dical Student - 06/10/2018 11:05 AM PDTFormatting [...] TTE 06/08/18 showed LVEF of 45% with pqvpeeck-nn-hzbhyd hypokinesis of lateral and inferio r castillo. [...] r educational purposes. Please refer to attending/resident/physician elementary assistant principal/nurse practit ioner note regarding further patient care. [...] TTE on 018 revealed LVEF = 45%, fkbtxyql-dy-eouobw hypokinesis of lateral and inferior castillo, julian [...] and opiates. TTE revealed LVEF = 45%, rvyovfst-st-nrqefl hypokinesis of lateral and inferior castillo, mitr [...] Single Lumen 06/09/18 0836 Left Distal Forearm jkos-pfr-zgkjes cathet er system 20 gauge;1 1/4 in [...] this chart may have been created with [employer] voice recognition software. Occasi onal wrong-word or [...] TTE on 018 revealed LVEF = 45%, oymebaoc-gr-nduuit hypokinesis of lateral and inferior castillo, julian [...] and opiates. TTE revealed LVEF = 45%, tchdnaui-uf-qrrnsh hypokinesis of lateral and inferior castillo, mitr [...] Date of Service: 06/08/2018 PCP: Yolanda Lee 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 OPERATOR [facility] Day: 0 Hospital [...] 06/07/18 1545 Right Anterior (palmar);Medial Forearm ove g-ufk-czgcna catheter system 20 gauge;other (see comments) 1 [...] this chart may have been created with [employer] voice recognition software. Occasi onal wrong-word or [...] Portions of this chart were created with [employer] voice recognition software. Occasional wro ng-word or "sound-alike" substitutions may have occurred due to the inherent limitations of voice recognition software. Please read the chart carefully and recognize, using context, w here those substitutions have occurred.Electronically signed by Shad Schuler MD at 06/08 10:27 AM Rhiannon Irene RN - 06/07/2018 3:09 PM [id number] arrived to floor. Somu nlent. Asking very [...] | | | | | | [facility] | | | | | | [place] [address] | | | | | | [phone] | | | | | | | | +--------+---------+ + + + | 10/28/ | Office | Cardiology | Carol, | | | 2019 | Visit | | SALVATORE Moreno [address] | | | | | [place], | | | | | | [place] [address] | | | | | | [phone] | | | | | | | [...] | | | | | | infarction) ([facility]) | | + +------+--------+ + + + [...] | | | | | | infarction) ([facility]) | | + + +--------+ + + [...] PROVIDENCE | | | | Performed by [facility] [address] | | [address] | | | | [address] [place] | | HEART | | | | [address] | | MEDICAL | | | | [...] + | [facility] | [address] | [place] [address] | | | [facility] | | | | [...] | | MEDICAL | | | | [facility] [address], | | CENTER | | | | [place] [address] | | LABORATORY | | | | [...] + | [facility] | [address] | [place] [address] | | | [facility] | | | | [...] + + + + | Product | [id number] | | REFERENCE | | | Code | | | [facility] | | | | | | [facility] | | | | | | [facility] | | | | | | BLOOD | | | | | | CENTER | | + + + + + + | UNIT # | [id number] | | REFERENCE | | | | | | [facility] | | | | | | [facility] | | | | | | [facility] | | | | | | BLOOD | | | | | | CENTER | | + + + + + + | UNIT ABO | O | | REFERENCE | | | | | | [facility] | | | | | | [facility] | | | | | | [facility] | | | | | | BLOOD | | | | | | CENTER | | + + + + + + | UNIT RH | NEG | | REFERENCE | | | | | | [facility] | | | | | | [facility] | | | | | | [facility] | | | | | | BLOOD | | | | | | CENTER | | + + + + + + | CROSSMATCH | Compatible | | REFERENCE | | | INTERP | | | [facility] | | | | | | [facility] | | | | | | [facility] | | | | | | BLOOD | | | | | | CENTER | | + + + + + + | Unit Status | RE | | REFERENCE | | | | | | [facility] | | | | | | [facility] | | | | | | [facility] | | | | | | BLOOD | | | | | | CENTER | | + + + + + + | Blood | [id number] | | REFERENCE | | | Product | | | [facility] | | | Expiration | | | [facility] | | | Date and | | | [facility] | | | Time | | | BLOOD | | | | | | CENTER | | + + + + + + | Product | [id number] | | REFERENCE | | | Blood Type | | | [facility] | | | Barcode | | | [...] + + + | Specimen Expiration Date: [id number] | REFERENCE LAB | | | [facility] [place] | | | [facility] | | | [facility]OD CENTER | + + + + + + + + | Performing | Address | City/State/Zipcode | Phone Number | | Organization | | | | + + + + + | REFERENCE LAB | [address] | [place] [address] | [phone] | | [facility] | | | | | [facility] [...] | | | POC | Performed by [facility] [address] | | [address] | | | | [address], [place] | | HEART | | | | [address] | | MEDICAL | | | | [...] [address] | [place] [address] | | | [facility] | | | | | LABORATORY JAMINNER | | | | + + + + + Red Blood Cells (06/14/2018 12:12 PM PDT) + + + + + + | Component | Value | Ref Range | Performed | Pathologist | | | | | At | Signature | + + + + + + | Product | [id number] | | REFERENCE | | | Code | | | [facility] | | | | | | [facility] | | | | | | [facility] | | | | | | BLOOD | | | | | | CENTER | | + + + + + + | UNIT # | [id number] | | REFERENCE | | | | | | [facility] | | | | | | [facility] | | | | | | [facility] | | | | | | BLOOD | | | | | | CENTER | | + + + + + + | UNIT ABO | O | | REFERENCE | | | | | | [facility] | | | | | | [facility] | | | | | | [facility] | | | | | | BLOOD | | | | | | CENTER | | + + + + + + | UNIT RH | NEG | | REFERENCE | | | | | | [facility] | | | | | | [facility] | | | | | | [facility] | | | | | | BLOOD | | | | | | CENTER | | + + + + + + | CROSSMATCH | Compatible | | REFERENCE | | | INTERP | | | [facility] | | | | | | [facility] | | | | | | [facility] | | | | | | BLOOD | | | | | | CENTER | | + + + + + + | Unit Status | IS | | REFERENCE | | | | | | [facility] | | | | | | [facility] | | | | | | [facility] | | | | | | BLOOD | | | | | | CENTER | | + + + + + + | Blood | [id number] | | REFERENCE | | | Product | | | [facility] | | | Expiration | | | [facility] | | | Date and | | | [facility] | | | Time | | | BLOOD | | | | | | CENTER | | + + + + + + | Product | [id number] | | REFERENCE | | | Blood Type | | | [facility] | | | Barcode | | | [facility] | | | | | | [facility] | | | | | | BLOOD | | | | | | CENTER | | + + + + + + | Product | [id number] | | REFERENCE | | | Code | | | [facility] | | | | | | [facility] | | | | | | [facility] | | | | | | BLOOD | | | | | | CENTER | | + + + + + + | UNIT # | [id number] | | REFERENCE | | | | | | [facility] | | | | | | [facility] | | | | | | [facility] | | | | | | BLOOD | | | | | | CENTER | | + + + + + + | UNIT ABO | O | | REFERENCE | | | | | | [facility] | | | | | | [facility] | | | | | | [facility] | | | | | | BLOOD | | | | | | CENTER | | + + + + + + | UNIT RH | NEG | | REFERENCE | | | | | | [facility] | | | | | | [facility] | | | | | | [facility] | | | | | | BLOOD | | | | | | CENTER | | + + + + + + | CROSSMATCH | Compatible | | REFERENCE | | | INTERP | | | [facility] | | | | | | [facility] | | | | | | [facility] | | | | | | BLOOD | | | | | | CENTER | | + + + + + + | Unit Status | IS | | REFERENCE | | | | | | [facility] | | | | | | [facility] | | | | | | [facility] | | | | | | BLOOD | | | | | | CENTER | | + + + + + + | Blood | [id number] | | REFERENCE | | | Product | | | [facility] | | | Expiration | | | [facility] | | | Date and | | | [facility] | | | Time | | | BLOOD | | | | | | CENTER | | + + + + + + | Product | [id number] | | REFERENCE | | | Blood Type | | | [facility] | | | Barcode | | | [...] + + + | Specimen Expiration Date: [id number] | REFERENCE LAB | | | [place] | | | [facility] | | | [facility]OD C[facility] | + + + + + + + + | Performing | Address | City/State/Zipcode | Phone Number | | Organization | | | | + + + + + | REFERENCE LAB | [address] | [place] [address] | [phone] | | [place] | | | | | [facility] [...] | | | POC | Performed by [facility] [address] | | [address]CR[address] | | | | [address] [place] | | HEART | | | | [address] | | MEDICAL | | | | [...] + | [facility] | [address] | [place] [address] | | | [facility] | | | | [...] | | | POC | Performed by [facility] [address] | | [address] | | | | [address], [place] | | HEART | | | | [address] | | MEDICAL | | | | [...] + | AM[facility] CARDONA | [address] | [place] [address] | | | [facility] | | | | [...] | | | POC | Performed by [facility] [address] | | [address]CRED | | | | [address] [place] | | HEART | | | | [address] | | MEDICAL | | | | [...] | [address] | [place] [address] | | | [facility] | | | | [...] | | | POC | Performed by [facility] [address] | | SACRED | | | | [address], [place] | | HEART | | | | [address] | | MEDICAL | | | | [...] + | AM[facility] CARDONA | [address] | [place] [address] | | | [facility] | | | | [...] | | | POC | Performed by [facility] [address] | | [address]CR[address] | | | | [address] [place] | | HEART | | | | [address] | | MEDICAL | | | | [...] [address] | [place] [address] | | | [facility] | | | | [...] | | | POC | Performed by [facility] [address] | | [address] | | | | [address], [place] | | HEART | | | | [address] | | MEDICAL | | | | [...] + | AMIL[facility] CARDONA | [address] | [place] [address] | | | [facility] | | | | [...] PROVIDENCE | | | | Performed by [facility] [address] | | SACRED | | | | [address] [place] | | HEART | | | | [address] | | MEDICAL | | | | [...] SACRED | [address] | [place] [address] | | | [facility] CENTER | | | | [...] | | MEDICAL | | | | [facility] [address], | | CENTER | | | | [place] [address] | | LABORATORY | | | | [...] + | AM[facility] CARDONA | [address] | [place] [address] | | | [facility] | | | | [...] | | | POC | Performed by [facility] [address] | | [address]CR[address] | | | | [address], [place] | | HEART | | | | [address] | | MEDICAL | | | | [...] SACRED | [address] | [place] [address] | | | HEART [facility] [...] | | | POC | Performed by [facility] [address] | | SACR[address] | | | | [address] [place], [place] | | HEART | | | | [address] | | MEDICAL | | | | [...] + | AMILCAR CARDONA | [address] | [place] [address] | | | [facility] | | | | [...] | | | POC | Performed by [facility] [address] | | [address]CR[address] | | | | [address], [place], [place] | | HEART | | | | [address] | | MEDICAL | | | | [...] SACRED | [address] | [place] [address] | | | HEART [facility] [...] | | | POC | Performed by [facility] [address] | | SACRED | | | | [address] [place], [place] | | HEART | | | [...] + | AMILCAR CARDONA | [address] | [place] [address] | | | [facility] | | | | [...] | | | POC | Performed by [facility] [address] | | [address]CR[address] | | | | [address], [place], [place] | | HEART | | | | [address] | | MEDICAL | | | | [...] SACRED | [address] | [place] [address] | | | HEART [facility] [...] | PROVIDENCE | | | POC | [facility] [address], | | SACRED | | | | [place] [address] | | HEART | | | |Performed by [facility] [address], [place] [address] | | MEDICAL | | | | [...] + | AMILCAR CARDONA | [address] | [place] [address] | | | [facility] | | | | [...] | | | POC | Performed by [facility] [address] | | SACRED | | | | [address] [place] | | HEART | | | | [address] | | MEDICAL | | | | [...] | [address] | [place] | | | [facility] | | | | [...] | YINE | | | POC | [facility] [address], | | SACRED | | | | [place] | | HEART | | | |Performed by [facility] [address], [place] | | MEDICAL | | | | [...] + + | AMILCAR CARDONA | [address] | [place] [address] | | | HEART [facility] | | | | | LABORATORY [...] | PROVIDENCE | | | POC | [facility] [address], | | SACRED | | | | [place] [address] | | HEART | | | |Performed by [facility] [address], [place] [address] | | MEDICAL | | | | [...] + | AMILCAR CARDONA | [address] | [place] [address] | | | [facility] | | | | [...] | TRACEMASTER | | Duration:184 msP Horizontal [place]:5 degP Front [place]:55 degQ Onset:508 | | | msQRSD Interval:104 msQT Interval:452 msQTcB:452 msQTcF:452 msQRS | | | Horizontal [place]:129 degQRS [place]:-53 degI-40 Horizontal [place]:77 degI-40 | | | Front [place]:-44 degT-40 Horizontal [place]:204 degT-40 Front [place]:-83 | | | degT Horizontal [place]:95 degT Wave [place]:39 degS-T Horizontal [place]:79 | | | degS-T Front [place]:49 degSeverity:- ABNORMAL ECG -INTERP:SINUS | | | RHYTHMINTERP:CONSIDER RIGHT VENTRICULAR HYPERTROPHYINTERP:PROBABLE | | | INFERIOR INFARCT, AGE INDETERMINATEINTERP:BORDERLINE ST ELEVATION, | | | ANTERIOR LEADSElectronically signed by: ELIZABETH CAMPBELL 06-12-2018 | | | 07:37:14 | | |QRS Horizontal [place]:129 deg | | |QRS [place]:-53 deg | | |I-40 Horizontal [place]:77 deg | | |I-40 Front [place]:-44 deg | | |T-40 Horizontal [place]:204 deg | | |T-40 Front [place]:-83 deg | | |T Horizontal [place]:95 deg | | |T Wave [place]:39 deg | | |S-T Horizontal [place]:79 deg | | |S-T Front [place]:49 deg | | |Severity:- ABNORMAL ECG - [...] + + | SARITHA REY | [address] | [place] [address] | [phone] | + + + + + CBC [...] [facility] | | | | Performed by [facility] [address] | | SACRED | | | | [address] [place] | | HEART | | | | [address] | | MEDICAL | | | | [...] + + | PROVIDEDEMIE SACRED | [address] | [place] [address] | | | [facility] | | | | [...] | | MEDICAL | | | | [facility] [address], | | CENTER | | | | [place] [address] | | LABORATORY | | | | [...] + | AMILCAR CARDONA | [address] | [place] [address] | | | [facility] | | | | [...] | | | POC | Performed by [facility] [address] | | SACRED | | [...] | [place] | | | HEART [facility] [...] | PROVIDENCE | | | POC | [facility] [address], | | SACRED | | | | [place] [address] | | HEART | | | |Performed by [facility] [address], [place] [address] | | MEDICAL | | | | [...] + | YARELISCARLOS CARDONA | [address] | [place] [address] | | | [facility] | | | | [...] | | | POC | Performed by [facility] [address] | | SACRED | | | | [address] [place] | | HEART | | | | [address] | | MEDICAL | | | | [...] + + | PROVIDENCE SACRED | [address] | [place] [address] | | | [facility] | | | | [...] | | | POC | Performed by [facility] [address] | | SACRED | | | | [address], [place] | | HEART | | | | [address] | | MEDICAL | | | | [...] + | YARELISDEMIKarly CARDONA | [address] | [place] [address] | | | [facility] | | | | [...] PROVIDENCE | | | | Performed by [facility] [address] | mmol/L | SACRED | | | | [address] [place] [place], [place] | | HEART | | | | [address] | | MEDICAL | | | | [...] + + | [facility] | [address] | [place] [address] | | | [facility] | | | | [...] AMILCAR | | | | Performed by [facility] [address] | | SACRED | | | | [address], [place] | | HEART | | | | [address] | | MEDICAL | | | | [...] + | AMILCAR CARDONA | [address] | [place] [address] | | | [facility] | | | | [...] CE | | | ARTERIAL | by [facility] [address], | | SACRED | | | | [place] [address] | | HEART | | | |Performed by [facility] [address], [place] [address] | | MEDICAL | | | | [...] [address] | [place] [address] | | | [facility] | | | | [...] | | | POC | Performed by [facility] [address] | | SACRED | | | | [address], [place] | | HEART | | | | [address] | | MEDICAL | | | | [...] + | AMILCAR CARDONA | [address] | [place] [address] | | | [facility] | | | | [...] | | | POC | Performed by [facility] [address] | | SACRED | | | | [address] [place] | | HEART | | | | [address] | | MEDICAL | | | | [...] + + | AMILCAR CARDONA | [address] | [place] [address] | | | [facility] | | | | [...] | AMILCAR | | | | by [facility] [address], | mmol/L | SACRED | | | | [place] | | HEART | | | |Performed by [facility] [address], [place] | | MEDICAL | | | [...] + + | [facility] | [address] | [place] | | | [facility]ICAL [facility]ENTER [...] | | | POC | Performed by [facility] [address] | | SACRED | | | | [address] [place], [place] | | HEART | | | | [address] | | MEDICAL | | | | [...] + | YARELISDEMIKarly MATAMOROSFAUSTO | [address] | [place] [address] | | | [facility] | | | | [...] | TRACEMASTER | | Duration:180 msP Horizontal [place]:-10 degP Front [place]:68 degQ Onset:512 | | | msQRSD Interval:110 msQT Interval:444 msQTcB:486 msQTcF:472 msQRS | | | Horizontal [place]:112 degQRS [place]:-63 degI-40 Horizontal [place]:100 | | | degI-40 Front [place]:-58 degT-40 Horizontal [place]: degT-40 Front [place]:160 | | | degT Horizontal [place]:104 degT Wave [place]:-11 degS-T Horizontal | | | [place]:104 degS-T Front [place]:32 degSeverity:- ABNORMAL ECG -INTERP:SINUS | | | RHYTHMINTERP:PROBABLE LEFT ATRIAL ABNORMALITYINTERP:NONSPECIFIC IVCD | | | WITH LADINTERP:INFERIOR INFARCT, AGE INDETERMINATEINTERP:LATERAL | | | INFARCT, OLDElectronically signed by: ELIZABETH CAMPBELL 06-12-2018 | | | 11:18:02 | | |QRS Horizontal [place]:112 deg | | |QRS [place]:-63 deg | | |I-40 Horizontal [place]:100 deg | | |I-40 Front [place]:-58 deg | | |T-40 Horizontal [place]: deg | | |T-40 Front [place]:160 deg | | |T Horizontal [place]:104 deg | | |T Wave [place]:-11 deg | | |S-T Horizontal [place]:104 deg | | |S-T Front [place]:32 deg | | |Severity:- ABNORMAL ECG - [...] + | WAMT TRACEMASTER | [address] | [place] [address] | [phone] | + + + + + PTT [...] | | | | | seconds.Performed by [facility] | | | | | | [address], | | | | | | [place] [address] | | | | + + + + + + + + | Specimen | + + | Blood specimen | | (specimen) | + + + + + + + | Performing | Address | City/State/Zipcode | Phone Number | | Organization | | | | + + + + + | AMILCAR CARDONA | [address] | [place] [address] | | | [facility] | | | | [...] | | | | to 3.5Performed by [facility] | | LABORATORY | | | | [address] [place], | | [place] | | | | [place] [address] | | | | + + + + + + + + | Specimen | + + | Blood specimen | | (specimen) | + + + + + + + | Performing | Address | City/State/Zipcode | Phone Number | | Organization | | | | + + + + + | [facility] | [address] | [place] [address] | | | [facility] | | | | [...] | | MEDICAL | | | | [facility] [address], | | CENTER | | | | [place] [address] | | LABORATORY | | | | [...] + | YARELISDEMIKarly BRENDAN | [address] | [place] [address] | | | [facility] | | | | [...] | | HEART | | | | [address] | | MEDICAL | | | | [...] CARDONA | [address] | [place] [address] | | | HEART [facility] [...] [facility]ENCE | | | Arterial | by [place] [address], | mmol/L | SACRED | | | | [place] [address] | | HEART | | | |Performed by [facility] [address], [place] [address] | | MEDICAL | | | | [...] + | AMILCAR CARDONA | [address] | [place] [address] | | | [facility] | | | | [...] E | | | Normalized | by [place] [address], | mg/dL | SACRED | | | | [place] [address] | | HEART | | | |Performed by [place] [address], [place] [address] | | MEDICAL | | | | [...] + | YARELISDEMIKarly CARDONA | [address] | [place] [address] | | | [facility] | | | | [...] YINE | | | | Performed by [facility] [address] | | SACRED | | | | [address] [place], [place] | | HEART | | | | [address] | | MEDICAL | | | | [...] + + | AMILCAR CARDONA | [address] | [place] [address] | | | HEART [facility] [...] +--------- ----+ + | Comment | [id number] | | PROVIDEN CE | | | [...] CE | | | ARTERIAL | by [facility] [address], | | SACRED | | | | [place] [address] | | HEART | | | |Performed by [facility] [address], [place] [address] | | MEDICAL | | | | [...] + | AMILCAR CARDONA | [address] | [place] [address] | | | [facility]ART MEDICAL CENTER | [...] | | | Arterial | Performed by [facility] [address] | mmol/L | SACRED | | | | [address] [place] | | HEART | | | | [address] | | MEDICAL | | | | [...] + | AMILCAR CARDONA | [address] | [place] [address] | | | [facility] | | | | [...] PROVIDEN CE | | | | by [facility] [address], | mmol/L | SACRED | | | | [place] [address] | | HEART | | | |Performed by [facility] [address], [place] [address] | | MEDICAL | | | | [...] + | AMILCAR CARDONA | [address] | [place] [address] | | | [facility] | | | | [...] | | | | | seconds.Performed by [facility] | | | | | | [address], | | | | | | [place] [address] | | | | + + + + + + + + | Specimen | + + | Blood specimen | | (specimen) | + + + + + + + | Performing | Address | City/State/Zipcode | Phone Number | | Organization | | | | + + + + + | PROVID[facility] SACRFAUSTO | [address] | [place] [address] | | | [facility] | | | | [...] | | | Arterial | Performed by [facility] [address] | mmol/L | SACRED | | | | [address] [place] | | HEART | | | | [address] | | MEDICAL | | | | [...] + + | AMILCAR CARDONA | [address] | [place] [address] | | | [facility] | [...] PROVIDEN CE | | | | by [facility] [address], | mmol/L | SACRED | | | | [place] [address] | | HEART | | | |Performed by [facility] [address], [place] [address] | | MEDICAL | | | | [...] + + + + + | AMILCAR CARDOAN | [address] | [place] [address] | | | [facility] | | | | [...] PROVIDENCE | | | Arterial | by [facility] [address], | mmol/L | SACRED | | | | [place] [address] | | HEART | | | |Performed by [place] [address], [place] [address] | | MEDICAL | | | | [...] CARDONA | [address] | [place] [address] | | | [facility] | | | | [...] PROVIDEDEMIE | | | | Performed by [facility] [address] | | SACRED | | | | [address], [place] | | HEART | | | | [address] | | MEDICAL | | | | [...] [address] | [place] [address] | | | [facility]ICAL [facility]ENTER | [...] [facility]ENCE | | | Arterial | by [facility] [address], | mmol/L | SACRED | | | | [place] [address] | | HEART | | | |Performed by [facility] [address], [place] [address] | | MEDICAL | | | | [...] + | YARELISDEMIKarly CARDONA | [address] | [place] [address] | | | [facility] | | | | [...] PROVIDENCE | | | | Performed by [facility] [address] | | SACRED | | | | [address] [place] | | HEART | | | | [address] | | MEDICAL | | | | [...] + | AMILCAR CARDONA | [address] | [place] [address] | | | [facility] | | | | | RIVERA FRIAS | | | | + + + + + ECHO Transesophageal (CHIQUITA) (06/11/2018 1:05 PM PDT) + + | Specimen | + + | | + + + + -----+ | Narrative | Performed At | + + -----+ | | [facility] | | Transesophageal Echocardiography Report (CHIQUITA) Demographics Patient | | | Name [facility] Room Number 270 | | | ZIYAD Patient Number [id number] Date of | | | Study 06/11/2018 Visit Number [id number] Accession | | | [id number] Interpreting Sharad Richard, | | | MD Number Physician Date | | | of 1955 Referring Physician ELEANOR BERMUDEZ | | | VERONICA Age 62 year(s) 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 Visible portions of ascending aorta | | | and arch normal. Grade 2atherosclerotic disease of descending aorta.9. | | | Pulmonary artery [id number]. Normal pericardium. No pericardial fluid. | | [...] pressures. TAPSE | | | measured with [employer] technology was 21.9mm. 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 Trace TR.7. Pulmonic valve normal Trace PA.8. Visible portions | | of ascending aorta and arch normal. 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 Pulmonary artery [id number]. Normal pericardium. No pericardial fluid. No pleural [...] + + | Performing | Address | City/State/[place] Service [employer]code | Phone Number | | Organization | [...] [facility] | | | Arterial | by [facility] [address], | mmol/L | SACRED | | | | [place] [address] | | HEART | | | |Performed by [facility] [address], [place] [address] | | MEDICAL | | | | [...] + | AMILCAR CARDONA | [address] | [place] [address] | | | [facility] | | | | [...] | | | Normalized | Performed by [facility] [address] | mg/dL | SACRED | | | | [address] [place] | | HEART | | | | [address] | | MEDICAL | | | | [...] + | AMILCAR CARDONA | [address] | [place] [address] | | | [facility] | | | | [...] PROVIDENCE | | | Arterial | by [facility] [address], | mmol/L | SACRED | | | | [place] [address] | | HEART | | | |Performed by [place] [address], [place] [address] | | MEDICAL | | | | [...] + | AMILCAR CARDONA | [address] | [place] [address] | | | [facility] | | | | [...] PROVIDENCE | | | | Performed by [facility] [address] | mmol/L | SACRED | | | | [address] [place] | | HEART | | | | [address] | | MEDICAL | | | | [...] + | YARELISCARLOS CARDONA | [address] | [place] [address] | | | [facility] | | | | [...] | | Screen | | | LAB [place] | | | | | | [facility] | | | | | | [facility] | | | | | | [facility] | | | | | | CENTER | | + + + + + + | ABO | O | | REFERENCE | | | | | | LAB [place] | | | | | | [facility] | | | | | | [facility] | | | | | | B[facility]OD | | | | | | CENTER | | + + + + + + | Rh Type | Negative | | REFERENCE | | | | | | LAB [place] | | | | | | [facility] [...] + + + | Specimen Expiration Date: [id number] | REFERENCE LAB | | | [place] | | | [facility] | | | [facility] | + + + + + + + + | Performing | Address | City/State/Zipcode | Phone Number | | Organization | | | | + + + + + | REFERENCE LAB | [address] | [place] [address] | [phone] | | [place] | | | | | [facility] [...] | | | POC | Performed by [facility] [address] | | SACRED | | | | [address] [place] | | HEART | | | | [address] | | MEDICAL | | | | [...] [address] | [place] [address] | | | HEART MEDICAL CENTER | [...] CENTER | | | | 3.5Performed by [facility] [address] | | LABORATORY | | | | [place] | | [place] | | | | [address] | | | | + + + + + + + + | Specimen | + + | Blood specimen | | (specimen) | + + + + + + + | Performing | Address | City/State/Zipcode | Phone Number | | Organization | | | | + + + + + | AMILCAR SACRFAUSTO | [address] | [place] [address] | | | [facility] | | | | [...] PROVIDENCE | | | | Performed by [facility] [address] | | SACRED | | | | [address] [place] | | HEART | | | | [address] | | MEDICAL | | | | [...] + | AMILCAR CARDONA | [address] | [place] [address] | | | [facility] | | | | [...] | | MEDICAL | | | | [facility] [address], | | CENTER | | | | [place] [address] | | LABORATORY | | | | [...] + | AMILCAR CARDONA | [address] | [place] [address] | | | [facility] | | | | [...] | | | | | seconds.Performed by [facility] | | | | | | [address], | | | | | | [place] [address] | | | | + + + + + + + + | Specimen | + + | Blood specimen | | (specimen) | + + + + + + + | Performing | Address | City/State/Zipcode | Phone Number | | Organization | | | | + + + + + | AMLICAR CARDONA | [address] | [place] [address] | | | [facility] | | | | [...] PROVIDENCE | | | Source | by [facility] [address], | | SACRED | | | | [place] [address] | | HEART | | | |Performed by [facility] [address], [place] [address] | | MEDICAL | | | | [...] + | AMILCAR CARDONA | [address] | [place] [address] | | | [facility] | | | | [...] - 1.030 | PROVIDENCE | | | [place] | | | SACRED | | | [...] | | | SOURCE | Performed by [facility] [address] | | SACRED | | | | [address] [place] | | HEART | | | | [address] | | MEDICAL | | | | [...] + | YINKarly BRENDAN | [address] | [place] [address] | | | [facility] | | | | [...] | | | POC | Performed by [facility] [address] | | SACRED | | | | [address] [place] | | HEART | | | | [address] | | MEDICAL | | | | [...] + | [facility] | [address] | [place] [address] | | | [facility] | | | | [...] | | | | | seconds.Performed by [facility] | | | | | | [address], | | | | | | [place] [address] | | | | + + + + + + + + | Specimen | + + | Blood specimen | | (specimen) | + + + + + + + | Performing | Address | City/State/Zipcode | Phone Number | | Organization | | | | + + + + + | [facility] | [address] | [place] [address] | | | [facility] | | | | [...] | | MEDICAL | | | | [facility] [address], | | CENTER | | | | [place] [address] | | LABORATORY | | | | [...] + | [facility] | [address] | [place] [address] | | | [facility] | | | | [...] CENTER | | | | 3.5Performed by [facility] [address] | | LABORATORY | | | | [address] [place] | | [place] | | | | [address] | | | | + + + + + + + + | Specimen | + + | Blood specimen | | (specimen) | + + + + + + + | Performing | Address | City/State/Zipcode | Phone Number | | Organization | | | | + + + + + | PROVIDEDEMIE SACRED | [address] | [place] [address] | | | [facility] | | | | [...] | | | POC | Performed by [facility] [address] | | SACRED | | | | [address], [place] | | HEART | | | | [address] | | MEDICAL | | | | [...] + | AMILCAR CARDONA | [address] | [place] [address] | | | [facility] | | | | [...] test | | | | | | ([id number]).Performed At: | | | | | | [id number] | | | | | | [address] | | | | | | [place], [place] | | | | | | [id number] Daniel | | | | | | Riya MOJICA Ph:[phone] | | | | + + + + + + + + | Specimen | + + | Blood specimen | | (specimen) | + + + + + + + | Performing | Address | City/State/Zipcode | Phone Number | | Organization | | | | + + + + + | PROVIDEDEMIE BRENDAN | [address] | [place] [address] | | | [facility] | | | | [...] | | | | | seconds.Performed by [facility] | | | | | | [address], | | | | | | [place] [address] | | | | + + + + + + + + | Specimen | + + | Blood specimen | | (specimen) | + + + + + + + | Performing | Address | City/State/Zipcode | Phone Number | | Organization | | | | + + + + + | AMILCAR CARDONA | [address] | [place] [address] | | | [facility] | | | | | [facility] | | | | + + + + + ECG 12 lead (06/10/2018 12:10 PM PDT) + + | Specimen | + + | | + + + + + | Narrative | Performed At | + + + | HEART RATE:71 | [facility] | | bpmRR Interval:845 msAtrial Rate:71 msP-R Interval:148 msP | TRACEMASTER | | Duration:152 msP Horizontal [place]:32 degP Front [place]:62 degQ Onset:512 | | | msQRSD Interval:110 msQT Interval:416 msQTcB:453 msQTcF:440 msQRS | | | Horizontal [place]:199 degQRS [place]:-83 degI-40 Horizontal [place]:77 degI-40 | | | Front [place]:-74 degT-40 Horizontal [place]:242 degT-40 Front [place]:216 | | | degT Horizontal [place]:84 degT Wave [place]:69 degS-T Horizontal [place]:97 | | | degS-T Front [place]:107 degSeverity:- ABNORMAL ECG -INTERP:SINUS | | | RHYTHMINTERP:NONSPECIFIC IVCD WITH LADINTERP:INFERIOR INFARCT, | | | OLDElectronically signed by: ELIZABETH CAMPBELL 06-12-2018 11:24:19 | | |QTcB:453 ms | | |QTcF:440 ms | | |QRS Horizontal [place]:199 deg | | |QRS [place]:-83 deg | | |I-40 Horizontal [place]:77 deg | | |I-40 Front [place]:-74 deg | | |T-40 Horizontal [place]:242 deg | | |T-40 Front [place]:216 deg | | |T Horizontal [place]:84 deg | | |T Wave [place]:69 deg | | |S-T Horizontal [place]:97 deg | | |S-T Front [place]:107 deg | | |Severity:- ABNORMAL ECG - | | |INTERP:SINUS RHYTHM | | |INTERP:NONSPECIFIC IVCD WITH LAD | | |INTERP:INFERIOR INFARCT, OLD | | |Electronically signed by: ELIZABETH CAMPBELL 06-12-2018 11:24:19 | | + + + + + + + + | Performing | Address | City/State/Zipcode | Phone Number | | Organization | | | | + + + + + | [facility] | [address] | [place] [address] | [phone] | + + + + + Pulmonary [...] | | | | | seconds.Performed by [facility] | | | | | | [address], | | | | | | [place] [address] | | | | + + + + + + + + | Specimen | + + | Blood specimen | | (specimen) | + + + + + + + | Performing | Address | City/State/Zipcode | Phone Number | | Organization | | | | + + + + + | [facility] | [address] | [place] [address] | | | [facility] | | | | [...] test | | | | | | ([id number]).Performed At: | | | | | | [facility] [id number] | | | | | | [address] | | | | | | [place], [place] | | | | | | [id number] Daniel | | | | | | L Ph:[phone] | | | | + + + [...] [facility] | [address] | [place] [address] | | | [facility] | | | | [...] | | | | | formula.Performed by [facility] | | | | | | [address], | | | | | | [place] [address] | | | | + + + + + + + + | Specimen | + + | Blood specimen | | (specimen) | + + + + + + + | Performing | Address | City/State/Zipcode | Phone Number | | Organization | | | | + + + + + | AMILCAR CARDONA | [address] | [place] [address] | | | [facility] | | | | [...] | | | | | | [facility] [place] | | | | | | [facility] | | | | | | [facility] | | | | | | [facility] | | | | | | CENTER | | + + + + + + | Rh Type | Negative | | REFERENCE | | | | | | [facility] [place] | | | | | | [facility] | | | | | | [facility] | | | | | | [facility] | | | | | | CENTER | | + + + + + + + + | Specimen | + + | | + + + + + | Narrative | Performed At | + + + | Specimen Expiration Date: [id number] | REFERENCE LAB | | | [place] [facility] | | | [facility] | | | [facility] | + + + + + + + + | Performing | Address | City/State/Zipcode | Phone Number | | Organization | | | | + + + + + | REFERENCE [facility] | [address] | [place] [address] | [phone] | | [place] | | | | | [facility] [...] | | Screen | | | [facility] [place] | | | | | | [facility] | | | | | | [facility] | | | | | | BLOOD | | | | | | CENTER | | + + + + + + + + | Specimen | + + | | + + + + + | Narrative | Performed At | + + + | Specimen Expiration Date: [id number] | REFERENCE LAB | | | [place] | | | [facility] | | | [facility] | + + + + + + + + | Performing | Address | City/State/Zipcode | Phone Number | | Organization | | | | + + + + + | RE[facility] | [address] | [place] [address] | [phone] | | [place] | | | | | [facility] [...] | | | | | | [facility] [place] | | | | | | [facility] | | | | | | [facility] | | | | | | BLOOD | | | | | | CENTER | | + + + + + + + + | Specimen | + + | | + + + + + | Narrative | Performed At | + + + | Specimen Expiration Date: [id number] | REFERENCE LAB | | | [place] | | | [facility] | | | [facility] | + + + + + + + + | Performing | Address | City/State/Zipcode | Phone Number | | Organization | | | | + + + + + | REFERENCE [facility] | [address] | [place] [address] | [phone] | | [place] | | | | | [facility] [...] | | | | | | [facility] [place] | | | | | | [facility] | | | | | | [facility] | | | | | | BLOOD | | | | | | CENTER | | + + + + + + | Rh Type | Negative | | REFERENCE | | | | | | [facility] [place] | | | | | | [facility] | | | | | | [facility] | | | | | | BLOOD | | | | | | CENTER | | + + + + + + | Antibody | Positive | | REFERENCE | | | Screen | | | LAB [place] | | | | | | [place] [...] + + + | Specimen Expiration Date: [id number] | REFERENCE [facility] | | | [place] | | | [facility] | | | [facility] | + + + + + + + + | Performing | Address | City/State/Zipcode | Phone Number | | Organization | | | | + + + + + | REFERENCE LAB | [address] | [place] [address] | [phone] | | [place] | | | | | [facility] [...] | | | | | seconds.Performed by [facility] | | | | | | [address], | | | | | | [place] [address] | | | | + + + + + + + + | Specimen | + + | Blood specimen | | (specimen) | + + + + + + + | Performing | Address | City/State/Zipcode | Phone Number | | Organization | | | | + + + + + | AMILCAR CARDONA | [address] | [place] [address] | | | [facility] | | | | [...] | proximal 40% LAD, 95% ostial septal scaffolding helper, 70% mid and distal LAD, 100% mid [...] LAD, 95% | | | ostial septal scaffolding helper, 70% mid and distal LAD, 100% mid [...] + + | Performing | Address | City/State/[facility] | Phone Number | | Organization | [...] | TRACEMASTER | | Duration:176 msP Horizontal [place]:19 degP Front [place]:70 degQ Onset:512 | | | msQRSD Interval:110 msQT Interval:444 msQTcB:480 msQTcF:467 msQRS | | | Horizontal [place]:157 degQRS [place]:-77 degI-40 Horizontal [place]:75 degI-40 | | | Front [place]:-59 degT-40 Horizontal [place]:240 degT-40 Front [place]:267 | | | degT Horizontal [place]:91 degT Wave [place]:68 degS-T Horizontal [place]:98 | | | degS-T Front [place]:103 degSeverity:- ABNORMAL ECG -INTERP:SINUS | | | RHYTHMINTERP:NONSPECIFIC IVCD WITH LADINTERP:INFERIOR INFARCT, | | | OLDElectronically signed by: ELIZABETH CAMPBELL 06-12-2018 11:25:24 | | |QTcB:480 ms | | |QTcF:467 ms | | |QRS Horizontal [place]:157 deg | | |QRS [place]:-77 deg | | |I-40 Horizontal [place]:75 deg | | |I-40 Front [place]:-59 deg | | |T-40 Horizontal [place]:240 deg | | |T-40 Front [place]:267 deg | | |T Horizontal [place]:91 deg | | |T Wave [place]:68 deg | | |S-T Horizontal [place]:98 deg | | |S-T Front [place]:103 deg | | |Severity:- ABNORMAL ECG - | | |INTERP:SINUS RHYTHM | | |INTERP:NONSPECIFIC IVCD WITH LAD | | |INTERP:INFERIOR INFARCT, OLD | | |Electronically signed by: ELIZABETH CAMPBELL 06-12-2018 11:25:24 | | + + + + + + + + | Performing | Address | City/State/Zipcode | Phone Number | | Organization | | | | + + + + + | [facility] | [address] | [place] [address] | [phone] | + + + + + Magnesium (06/09/2018 3:07 AM PDT) + + + +--------- ----+ + | Component | Value | Ref Range | Performe d | Pathologist | | | | | At | Signature | + + + +--------- ----+ + | Magnesium | 2.1Comment: Performed | 1.7 - 2.4 mg/dL | [facility] | | | | by [facility] [address], | | SACRED | | | | [place], [place] | | HEART | | | |Performed by [facility] [address], [place], [place] | | MEDICAL | | | [...] + + | [facility] | [address] | [place], [place] | | | [facility] [...] ENCE | | | Basophils | by [facility] [address], | K/uL | SACRED | | | | [place] [address] | | HEART | | | |Performed by [facility] [address], [place] [address] | | MEDICA L | | | [...] + | AMILCAR CARDONA | [address] | [place] [address] | | | [facility] | | | | [...] | | MEDICAL | | | | [facility] [address], | | CENTER | | | | [place] [address] | | LABORATORY | | | | [...] + + | [facility] | [address] | [place] [address] | | | [facility] | | | | [...] | | | | | TroponinPerformed by [facility] | | | | | | [address], | | | | | | [place] [address] | | | | + + + + + + + + | Specimen | + + | Blood specimen | | (specimen) | + + + + + + + | Performing | Address | City/State/Zipcode | Phone Number | | Organization | | | | + + + + + | AMILCAR CARDONA | [address] | [place] [address] | | | [facility] | | | | [...] | TRACEMASTER | | Duration:200 msP Horizontal [place]:19 degP Front [place]:58 degQ Onset:512 | | | msQRSD Interval:110 msQT Interval:404 msQTcB:506 msQTcF:469 msQRS | | | Horizontal [place]:184 degQRS [place]:265 degI-40 Horizontal [place]:78 degI-40 | | | Front [place]:269 degT-40 Horizontal [place]:240 degT-40 Front [place]:259 | | | degT Horizontal [place]:77 degT Wave [place]:63 degS-T Horizontal [place]:83 | | | degS-T Front [place]:99 degSeverity:- ABNORMAL ECG -INTERP:SINUS | | | RHYTHMINTERP:NONSPECIFIC IVCD WITH LADINTERP:INFERIOR INFARCT, | | | OLDElectronically signed by: ELIZABETH CAMPBELL 06-12-2018 11:24:43 | | |QTcB:506 ms | | |QTcF:469 ms | | |QRS Horizontal [place]:184 deg | | |QRS [place]:265 deg | | |I-40 Horizontal [place]:78 deg | | |I-40 Front [place]:269 deg | | |T-40 Horizontal [place]:240 deg | | |T-40 Front [place]:259 deg | | |T Horizontal [place]:77 deg | | |T Wave [place]:63 deg | | |S-T Horizontal [place]:83 deg | | |S-T Front [place]:99 deg | | |Severity:- ABNORMAL ECG - [...] + + | W[facility] TRACEMASTER | [address] | [place] [address] | [phone] | + + + + + Troponin [...] by | | | | | | [facility] [address], | | | | | | [place] [address] | | | | + + + + + + + + | Specimen | + + | Blood specimen | | (specimen) | + + + + + + + | Performing | Address | City/State/Zipcode | Phone Number | | Organization | | | | + + + + + | AMILCAR CARDONA | [address] | [place] [address] | | | [facility] | | | | [...] NO[facility]MY CE | | | | by [facility] [address], | | SACRED | | | | [place] [address] | | HEART | | | |Performed by [facility] [address], [place] [address] | | MEDICAL | | | | [...] + | AMILCAR CARDONA | [address] | [place] [address] | | | [facility] | | | | [...] | | MEDICAL | | | | [facility] [address], | | CENTER | | | | [place] [address] | | LABORATORY | | | | [...] SACRED | [address] | [place] [address] | | | [facility] | | | | [...] | | | | | TroponinPerformed by [facility] | | | | | | [address], | | | | | | [place] [address] | | | | + + + + + + + + | Specimen | + + | Blood specimen | | (specimen) | + + + + + + + | Performing | Address | City/State/Zipcode | Phone Number | | Organization | | | | + + + + + | [facility] | [address] | [place] [address] | | | [facility] | | | | [...] by | | | | | | [facility] [address], | | | | | | [place] [address] | | | | + + + + + + + + | Specimen | + + | Blood specimen | | (specimen) | + + + + + + + | Performing | Address | City/State/Zipcode | Phone Number | | Organization | | | | + + + + + | [facility] | [address] | [place] [address] | | | [facility] | | | | [...] [facility] | | | | Performed by [facility] [address] | | SACRED | | | | [address], [place] | | HEART | | | | [address] | | MEDICAL | | | | [address] | [place] [address] | | | [facility]ICAL [facility]ENTER | [...] | | | | | battery.Performed by [facility] | | | | | | [address], | | | | | | [place] [address] | | | | + + + + + + + + | Specimen | + + | Urine specimen | | (specimen) | + + + + + + + | Performing | Address | City/State/Zipcode | Phone Number | | Organization | | | | + + + + + | YARELISCARLOS BRENDAN | [address] | [place] [address] | | | [facility] | | | | [...] | | | | | [place].Performed by [facility] [address] | | | | | | [address] [place] | | | | | | [address] | | | | + + + + + + + + | Specimen | + + | Blood specimen | | (specimen) | + + + + + + + | Performing | Address | City/State/Zipcode | Phone Number | | Organization | | | | + + + + + | [facility]ELIS[facility] | [address] | [place] [address] | | | [facility] | | | | [...] PROVIDENC E | | | SERUM | [facility] [address], | | SACRED | | | | [place] [address] | | HEART | | | |Performed by [facility] [address], [place] [address] | | MEDICAL | | | | [...] + + | AMILCAR CARDONA | [address] | [place] [address] | | | [facility] | | | | [...] | | SACRED | | | | [place] [address] | | HEART | | | |Performed by [facility] [address], [place], [place] | | MEDICAL | | | [...] + + | AMILCAR CARDONA | [address] | [place] | | | HE[facility] MEDICAL CENTER [...] | | MEDICAL | | | | [facility] [address], | | CENTER | | | | [place] [address] | | LABORATORY | | | | [...] + + | [facility] | [address] | [place] [address] | | | [facility] | | | | [...] ENCE | | | Basophils | by [facility] [address], | K/uL | SACRED | | | | [place] [address] | | HEART | | | |Performed by [facility] [address], [place] [address] | | MEDICA L | | | [...] + + | AMILCAR CARDONA | [address] | [place] [address] | | | HEART [facility] | | | | | LABORATORY LAT[place]AC[place] | | | | + + + + + Extra Hold Tube(s) (06/07/2018 9:10 AM PDT) + + + + + + | Component | Value | Ref Range | Performed | Pathologist | | | | | At | Signature | + + + + + + | Extra Tube | DrawnComment: Performed | | [facility] | | | | by [facility] [address], | | SACRED | | | | [place] [address] | | HEART | | | |Performed by [facility] [address], [place] [address] | | MEDICAL | | | | [...] + | AMILCAR CARDONA | [address] | [place] [address] | | | [facility] | | | | [...] U/L | [facility] | | | | [facility] [address], | | SACRED | | | | [place] [address] | | HEART | | | |Performed by [facility] [address], [place] [address] | | MEDICAL | | | | [...] + + | [facility] | [address] | [place] [address] | | | [facility] | | | | [...] - 1.030 | [facility] | | | [place] | | | SACRED | | | [...] | | | SOURCE | Performed by [facility] [address] | | SACRED | | | | [address] [place] | | HEART | | | | [address] | | MEDICAL | | | | [...] + | AMILCAR CARDONA | [address] | [place] [address] | | | [facility] | | | | [...] of | | unspecified type of vessel, [place] or graft | + + | NSTEMI [...] | | | | Mild Pain, Starting [facility] 06/11/18 at | | | | | [...] PDT | | | | | Starting [facility] 06/11/18 at 1635, Give | | | [...] 8:29 | | | | | on [facility] 06/11/18 at 1700, If unable | | [...] | | | | First dose on [facility] 06/11/18 at 2100 | | PM PDT [...] | | | | | | | [facility] 06/11/18 at 1700, Max dose 1000 | [...] | | | Starting [facility] 06/11/18 at 1715, | | | | [...] | | | | | NPO, Daytime [id number] Use NIGHT | | | | | | | DOSE for doses scheduled: | | | | | | | HS, 3AM, Nighttime [id number] Only | | | | | | [...] 18 4:15 | | | | | LEVEL VIAL SEALER, Starting Marycarmen 06/11/18 at | | AM [...] | | | DAILY, First dose on [facility] 06/11/18 | | AM PDT | | [...] | | | | | TITRATED, Starting [facility] 06/11/18 at | | | | | [...] | | | Starting [facility] 06/11/18 at 1636, | | | | [...] | | | Starting [facility] 06/11/18 at 1700, PLUS | | | [...] | | | | | Constipation, Starting [facility] 06/11/18 | | AM PDT | | [...] AM PDT | | | | | [place] 06/07/18 at 0905, For 1 dose | [...] | | | | | Starting [facility] 06/09/18 at 0829, For | | | [...] | | | | First dose on [facility] 06/11/18 at | | | | | [...]
--- OUTSIDE RECORDS SUMMARY | ~2019-08-21 | XMS | Encounter Summary ---
Demographics + + + | Address | [address] | | | [place] [address] | + + + | Home Phone [...] Author | [facility] | | | and Ankitana | + + + | Organization | [facility] | | [...] Providers + +------+ + | Care Jewelry Sales Associate Name | Role | Phone | [...] | | | | [address] | [phone] | | | | | [place] | | | | | | [address] | | | | | | [phone] | | | +--------+ + + + [...] | | | | | [place] [address] | | | | | | [phone] | | | | | | | | +--------+---------+ + + + | 10/28/ | Office | Cardiology | Carol, | | | 2020 | Visit | | SALVATORE [address] | | | | | | [place], | | | | | | [place] [address] | | | | | | [phone] | | | | | | | | +--------+---------+ + + + documented as of this encounter Visit Diagnoses Not on filedocumented in this encounter"
--- OUTSIDE RECORDS SUMMARY | ~2019-08-21 | XMS | Encounter Summary ---
Demographics + + + | Address | [address] | | | [place] [address] | + + + | Home Phone [...] | Author | [facility] | | | and Ankitana | + + + | Organization | [facility] | [...] Team Providers + +------+ + | Care Digital Asset Manager Name | Role | Phone | [...] [address] | | | | [address] | [facility] | | | | | [facility] | [place] [address] | | | | | [place] | [phone] | | | | | [address] | | | | | | [phone] | | | +--------+ + + + [...] | | | | | | [place] [address] | | | | | | [phone] | | | | | | | | +--------+---------+ + + + | 10/28/ | Office | Cardiology | Carol, | | | 2019 | Visit | | SALVATORE [address]no [address] | | | | | | [place], | | | | | | [place] [address] | | | | | | [phone] | | | | | | | [...] + + | [facility]IS[facility] | [address] | [place] [address] | | | [facility] | | | | | LABORATORY | | | | + + + + + | [facility] | | | | | [facility] | | | | | LABORATORY | | | | + + + + + Historical Imaging Result (01/22/2011 1:53 PM PDT) + + | Specimen | + + | | + + + + + | Narrative | Performed At | + + + | Exam Performed Location: [facility] | MISCELANIOUS | | PA AND [...] 07/29/2013 8:42 PM PDT Exam Performed [facility] LATERAL CHESTCLINICAL INFORMATION:Vomiting with shortness [...] + | [facility] LAB | | | [phone] | + +---------+ + + | [facility] LAB | | | [phone] | + +---------+ + + Drugs of [...] + + | [facility] | [address] | [place] [address] | | | [facility] | | | | | LABORATORY | | | | + + + + + | [facility] | | | | | [facility] | | | | | LABORATORY [...] + + | [facility] | [address] | [place] [address] | | | [facility] | | [...] | [facility] | [address] [facility] | [place] [address] | | | [facility] | | | | | LABORATORY | | | | + + + + + | [facility] | | | | | [facility] | | | | | [...] + | [facility] | [address] | [place] [address] | | | [facility] | | [...] + | [facility] | [address] | [place] [address] | | | [facility] | | [...] + + + | [facility] | [address] [facility] | [place] [address] | | | [facility] | | [...] + | [facility] | [address] | [place] [address] | | | [facility] | | [...] + | [facility] | [address] | [place] [address] | | | [facility] | | [...] + + + | [facility] | [address] | [place] [address] | | | [facility] | | | | | LABORATORY | | | | + + + + + | [facility] | | | | | [facility] | | | | | LABORATORY | | | | + + + + + documented in this encounter Visit Diagnoses Not on filedocumented in this encounter"
--- OUTSIDE RECORDS SUMMARY | ~2019-08-21 | XMS | Encounter Summary ---
Demographics + + + | Address | [address] | | | [place] [address] | + + + | Home Phone | | + + + | Preferred Language | Unknown | + + + | Marital Status | | + + + | Synagogue Affiliation | 1041 | + + + | Race | Unknown | + + + | Ethnic Group | Unknown | + + + Author + + + | Author | [facility] | | | and Ankitana | + + + | Organization | [facility] | | | and [...] Providers + +------+ + | Care Director Information Name | Role | Phone | + [...] [facility] | MD Veronica [address] [place] | BYPASS G[facility]FT X3 EVH | | | | OP [address] | [address] [place] | JU | | | | [place] | [id number] | | | | | [address] | | | | | | [phone] | | | +--------+---------+ + + + [...] Pharmacist notified and gave patient number for [facility] pharmacy to transfer medications in AM. Given night time pain medications prior to leaving . The AVS was reviewed with patient and family with no pending questions or concerns. All b elongings were collected from the room and sent with the family. The pt is discharging home with family in [place]. New FWW sent with patient. No further questions and all teaching demo nstrated back to RN. Plan for d/c at 1800 when family arrives. Juancho Dalal AR NP - 06/15/2018 12:01 PM PDT [facility] [...] precauti ons. She was recently released from snf before arriving at the ER and our social security benefits interviewer has confirmed that she is free to [...] and occupational therapy for post-op rehab. - [facility]. Disposition: Home with family. Patient was advised to call our office or their jack spooler tender with any questions. Follow-Up: Follow-up Information SALVATORE Ventura. Go on 06/23/2018. Specialty: Nurse Practitioner Why: Hospital follow up scheduled at 11:[address] Roa Contact information: [address] [facility] [address] Hemanth Webster MD. Schedule an appointment as soon as possible for a visit on 06/29/2018 . Specialty: Cardiothoracic Surgery Why: 11:30 AM Contact information: [address], [place] [address] [facility] [address] Schedule an appointment as soon as possible for a visit with [facility] D[facility]NT[facility] . Why: Please call to schedule your 1 month follow-up with cardiology. Contact information: [address] [place] [address] [facility] [address] Time spent on discharge planning: greater than 30 minutes CABG Checklist ACEI/ARB/ARNI prescribed: No - Hypotension Aspirin prescribed: Not addressed Beta mateus (evidence-based) prescribed: Yes Beta mateus prescribed: N/A - LV EF is less than 41% High intensity statin prescribed: Yes Referral to cardiac rehab: Yes Tobacco cessation counseling provided: Yes [facility] [address], [address] [place] [address] Portions of this chart may have been created with PerfectHitch voice recognition software. Occasi onal wrong-word or [...] feeling more short of breath, please call [facility]io[facility] estrada at [phone]. 2. For problems or concerns with your incision or your chest, please call [facility]) at [phone]. After Coronary Artery Bypass Surgery When you [...] by medication, call your healthcare pr ovider. [phone] [facility], [address] [place] [address], [place] [address]. All rights reserve d. This information is [...] | | | | infarction) ([facility]), | | | | | | [...] bedside. Pt states she was brought to [facility] by [facility] but states she is no l onger in custody. No guards at the door. RIZWANA Cooking Appliance Repair Technician suggested SW contact snf to confirm. RIZWANA spoke with [facility] who confirms pt was released. SW spoke with pt regarding discharge plan. Pt plans to discharge to friend's home. SW available should further discharg e planning needs arise. Keith Lopez MD - 06/15/2018 8:45 AM PDT [facility] PATIENT NAME: Smitha Fletcher : [...] Follow-up requested. Keith Harp MD, [facility] Portions of this chart were created with PerfectHitch voice recognition software. Occasional wro ng-word or "sound-alike" substitutions may have occurred due to the inherent limitations of voice recognition software. Please read the chart carefully and recognize, using context, w here those substitutions have occurred. eonte Lee MD - 06/15/2018 7:15 AM PDTFormatting of this no te might be different from the original. [facility] Pt. Name/Age/: Smitha Fletcher 62 y.o. 1955 Med. Record Number: [id number] Date of admission: 06/07/2018 POD # 4 Procedure: CABG X 3 Surgeon: Eleanor Subjective New complaints: poor sternal precautions. No c/o this morning. Acknowledges that came from [facility] snf. Not sure where she is going. No [...] signed by: Hector Decker PA-C Cardiothoracic Surgery [facility] [address], [address] [place] [address] 06/15/2018 7:15 [facility] Agree with detailed plan nicely outlined by Hector Ashley Moreland MSW - 06/14/2018 1:05 PM PDTSOCIAL WORK PLAN: TBD INTERVENTION: SW acknowledged order for return to snf. Pt came from snf per chart review and may have to go back there upon DC. SW will continue to follow for DC planning. Frandy Estrada ARNP - 06/14/2018 9:11 AM PDTBlood Glucose log reviewed. Patient is stable, with control led blood glucose. Not requiring insulin Diabetes Service will sign off. Medication Reconciliation for diabetes medications has been completed. Please contact us at [phone] should the need arise. Thank you for [...] signed by: Rip Yao M.D. CardioThoracic Surgery [facility] 06/14/2018 9:23 [facility] Pt. Name/Age/: Smitha Fletcher 62 y.o. 1955 Med. Record Number: [id number] Date of admission: 06/07/2018 POD # 3 [...] the patient is going. Willl have social security benefits interviewer start arrangements. Problem List Patient Active Problem [...] signed by: Hector Decker PA-C Cardiothoracic Surgery [facility] [address], [address] [address] 06/14/2018 8:59 [facility] Dave Hill MD - 06/14/2018 8:07 AM PDT [facility] PATIENT NAME: Smitha Fletcher : [...] Portions of this chart were created with PerfectHitch voice recognition software. Occasional wro ng-word or [...] Per RN; she will be discharging from [facility] to snf that she came from. Assessment for glucose [...] by: SALVATORE Elias 06/13/2018 14:53 Diabetes team, [facility] [phone] Amaury Hill MD - 06/13/2018 10:27 AM PDTFormatting of this note might be different from the origi nal. [facility] PATIENT NAME: Smitha Fletcher : [...] Portions of this chart were created with PerfectHitch voice recognition software. Occasional wro ng-word or [...] signed by: Rip Yao M.D. CardioThoracic Surgery [facility] 06/13/2018 9:35 [facility] Pt. Name/Age/: Smitha Fletcher 62 y.o. 1955 Med. Record Number: [id number] Date of admission: 06/07/2018 POD #2 Procedure: [...] signed by: Hector Decker PA-C Cardiothoracic Surgery [facility] [address], [address] [place] [address] 06/13/2018 8:11 [facility] Kezia Downing RN - 06/12/2018 3:10 PM [...] discharge planning. ASSESSMENT/CHART REVIEW: Pt resides in [facility]. She has Medicare coverage. COPD, is risk for readmission. If pt d oes not need placement she may benefit from home health post acute care. D/C TRANSPORT: TBD BARRIERS TO D/C: Medical stability CONTACTS: Hanna Sethi: [phone] signed by JEFFY Cabrales at 06/12/2018 1 2:24 PM Dave Hill MD - 06/12/2018 11:33 AM PDTFormatting of this note might b e different from the original. [facility] PATIENT NAME: Smitha Fletcher : 1955: [...] 1.0 0.4 - 1.5 % Comment PS8 SNF358 O2 Content, Arterial 15.7 15.0 - 23.0 [...] 22:29 Result Value Ref Range Product Code M4956N79 UNIT # [id number] UNIT ABO O UNIT RH NEG CROSSMATCH INTERP Compatible Unit Status XM Blood Product Expiration Date and Time Product Blood Type Barcode 9500 Product Code Y7468D01 UNIT # [id number] UNIT ABO O UNIT RH NEG CROSSMATCH INTERP Compatible Unit Status IS Blood Product Expiration Date and Time 108414963563 Product Blood Type Barcode 9500 Blood Gas, [...] 6:53 Result Value Ref Range Product Code U8837K95 UNIT # [id number] UNIT ABO O UNIT RH NEG CROSSMATCH INTERP Compatible Unit Status XM Blood Product Expiration Date and Time 314701421804 Product Blood Type Barcode 9500 POC Glucose [...] Duvall MD - 06/12/2018 10:12 AM PDT [facility] Hemanth Webster [...] or acidosis. Mild anemia. All is well. CHQIUITA interp pending. PLANS: usual post op then [...] is a 62 y.o.femalewith hx substance abuse, IA and stent [place] [address] Brittnee Sandoval cardiology. She was brought from snf, complaining of severe 8-9/10 burning chest pain [...] - Single Lumen 06/10/18 1446 Right Forearm idic-kfu-jjpqbj catheter sys tem 22 gauge;1 in length [...] mg/dL Final Comment: Performed by [facility] [address] [place] [address] All pertinent labs and imaging have been [...] this chart may have been created with PerfectHitch voice recognition software. Occasi onal wrong-word or sound-alike substitutions may have occurred due to the inherent meyers itations of voice recognition software. Please read the chart carefully and recognize, using context, where these substitutions have occurred Brenna Henderson, Nm dical Student - 06/10/2018 11:05 AM PDTFormatting [...] TTE 06/08/18 showed LVEF of 45% with rgschlst-aq-eonswq hypokinesis of lateral and inferio r castillo. [...] female with a pmhx of polysubstance abuse, CAD/IA s/p stent (2011), ischemic EFrEF (LVEF of 45%), HTN, bipolar disorder, nicotine dependence and incarce ration that presented from snf with severe left sided chest pain that [...] r educational purposes. Please refer to attending/resident/physician events and promotions assistant/nurse practit ioner note regarding further patient [...] TTE on 018 revealed LVEF = 45%, kxycehju-sp-asokrh hypokinesis of lateral and inferior castillo, julian [...] Complaint: Chest pain Hospital Course: 62F PMH CAD/IA s/p stent (2011), ischemic HFrEF (LVEF = 45%), HTN, polysubstance abuse (met hamphetamine & marijuana), HCV, bipolar disorder, nicotine dependence and incarceration pres ented from snf w/ severe, burning, substernal chest pain w/ radiation to left shoulder and associated nausea and vomiting. Workup in ED revealed troponin elevation (peak 0.311 this admission) and patient was admitt ed for further workup and management w/ cardiology. Labs in ED also revealed UDS positive fo r amphetamine, methamphetamine, benzodiazepines and opiates. TTE revealed LVEF = 45%, eklbkhwc-yu-mizxlc hypokinesis of lateral and inferior castillo, mitr [...] Date of Service: 06/09/2018 PCP: Yolanda Lee EQUIPMENT ASSOCIATE Hospital Day: 0 Hospital Course: This is a 62 y.o.femalewith hx substance abuse, IA and stent [place] [address] Sandoval cardiology. She was brought from snf, complaining of severe 8-10 burning chest pain [...] hypokinesis present but the patient has has IA's in the past . Mild LVH. Stress [...] Single Lumen 06/09/18 0836 Left Distal Forearm rrqu-aid-qlkcxs cathet er system 20 gauge;1 1/4 in [...] this chart may have been created with PerfectHitch voice recognition software. Occasi onal wrong-word or [...] TTE on 018 revealed LVEF = 45%, wisbiajs-ot-spfycl hypokinesis of lateral and inferior castillo, julian [...] Complaint: Chest pain Hospital Course: 62F PMH CAD/IA s/p stent (2011), ischemic HFrEF (LVEF = 45%), HTN, polysubstance abuse (met hamphetamine & marijuana), HCV, bipolar disorder, nicotine dependence and incarceration pres ented from snf w/ severe, burning, substernal chest pain w/ radiation to left shoulder and associated nausea and vomiting. Workup in ED revealed troponin elevation (peak 0.311 this admission) and patient was admitt ed for further workup and management w/ cardiology. Labs in ED also revealed UDS positive fo r amphetamine, methamphetamine, benzodiazepines and opiates. TTE revealed LVEF = 45%, uqvcmuwt-ux-wesoaq hypokinesis of lateral and inferior castillo, mitr [...] 62 y.o. female with hx substance abuse, IA and stent [place] [address] Riya banuelos cardiology. She was brought from snf, complaining on sever 8-10 burning chest pain [...] hypokinesis present but the patient has has IA's in the past . Mild LVH. Stress [...] 06/07/18 1545 Right Anterior (palmar);Medial Forearm ove t-vaq-vpmcrj catheter system 20 gauge;other (see comments) 1 [...] this chart may have been created with PerfectHitch voice recognition software. Occasi onal wrong-word or [...] Portions of this chart were created with PerfectHitch voice recognition software. Occasional wro ng-word or "sound-alike" substitutions may have occurred due to the inherent limitations of voice recognition software. Please read the chart carefully and recognize, using context, w here those substitutions have occurred.Electronically signed by Shad Schuler MD at 06/08 10:27 AM Rhiannon Irene RN - 06/07/2018 3:09 PM [id number] arrived to floor. Somu nlent. Asking very [...] | | | | | [place] [address] | | | | | | [phone] | | | | | | | | +--------+---------+ + + + | 10/28/ | Office | Cardiology | Carol, | | | 2019 | Visit | | SALVATORE Moreno [address] | | | | | | [place] | | | | | | [place] [address] | | | | | | [phone] | | | | | | | [...] | | | | infarction) ([facility]) | | + + +--------+ + [...] YINE | | | | Performed by [facility] [address] | [address] | | | | [address] [place] | | HEART | | | | [address] | | MEDICAL | | | | [...] SACRED | [address] | [place] [address] | | | [facility] | | | | | LABORATORY [...] | | MEDICAL | | | | [facility] [address], | | CENTER | | | | [place] [address] | | LABORATORY | | | | [...] AMILCAR [facility] | [address] | [place] [address] | | | [facility] | | | | | RIVERA FRIAS [...] + + + + | Product | [id number] | | REFERENCE | | | Code | | | LAB [place] | | | | | | [facility] | | | | | | [facility] | | | | | | BLOOD | | | | | | CENTER | | + + + + + + | UNIT # | [id number] | | REFERENCE | | | | | | LAB [place] | | | | | | [facility] | | | | | | [facility] | | | | | | BLOOD | | | | | | CENTER | | + + + + + + | UNIT ABO | O | | REFERENCE | | | | | | LAB [place] | | | | | | [facility] | | | | | | [facility] | | | | | | BLOOD | | | | | | CENTER | | + + + + + + | UNIT RH | NEG | | REFERENCE | | | | | | LAB [place] | | | | | | [facility] | | | | | | [facility] | | | | | | BLOOD | | | | | | CENTER | | + + + + + + | CROSSMATCH | Compatible | | REFERENCE | | | INTERP | | | LAB [place] | | | | | | [facility] | | | | | | [facility] | | | | | | BLOOD | | | | | | CENTER | | + + + + + + | Unit Status | RE | | REFERENCE | | | | | | LAB [place] | | | | | | [facility] | | | | | | [facility] | | | | | | BLOOD | | | | | | CENTER | | + + + + + + | Blood | [id number] | | REFERENCE | | | Product | | | LAB [place] | | | Expiration | | | [facility] | | | Date and | | | [facility] | | | Time | | | BLOOD | | | | | | CENTER | | + + + + + + | Product | [id number] | | REFERENCE | | | Blood Type | | | LAB [place] | | | Barcode | | | [...] + + + | Specimen Expiration Date: [id number] | REFERENCE LAB | | | [place] | | | [facility] | | | BLOOD CENTER | + + + + + + + + | Performing | Address | City/State/Zipcode | Phone Number | | Organization | | | | + + + + + | REFERENCE LAB | [address] | [place] [address] | [phone] | | [place] | | | | | [facility] [...] | | | POC | Performed by [facility] [address] | | [place]CR[address] | | | | [address], [place] | | HEART | | | | [address] | | MEDICAL | | | | [...] + | YARELISDEMIKarly CARDONA | [address] | [place] [address] | | | [facility] | | | | | LABORATORY J[place]INNER | | | | + + + + + Red Blood Cells (06/14/2018 12:12 PM PDT) + + + + + + | Component | Value | Ref Range | Performed | Pathologist | | | | | At | Signature | + + + + + + | Product | [id number] | | REFERENCE | | | Code | | | LAB [place] | | | | | | [facility] | | | | | | [facility] | | | | | | BLOOD | | | | | | CENTER | | + + + + + + | UNIT # | [id number] | | REFERENCE | | | | | | LAB [place] | | | | | | [facility] | | | | | | [facility] | | | | | | BLOOD | | | | | | CENTER | | + + + + + + | UNIT ABO | O | | REFERENCE | | | | | | LAB [place] | | | | | | [facility] | | | | | | [facility] | | | | | | BLOOD | | | | | | CENTER | | + + + + + + | UNIT RH | NEG | | REFERENCE | | | | | | LAB [place] | | | | | | [facility] | | | | | | [facility] | | | | | | BLOOD | | | | | | CENTER | | + + + + + + | CROSSMATCH | Compatible | | REFERENCE | | | INTERP | | | LAB [place] | | | | | | [facility] | | | | | | [facility] | | | | | | BLOOD | | | | | | CENTER | | + + + + + + | Unit Status | IS | | REFERENCE | | | | | | LAB [place] | | | | | | [facility] | | | | | | [facility] | | | | | | BLOOD | | | | | | CENTER | | + + + + + + | Blood | [id number] | | REFERENCE | | | Product | | | LAB [place] | | | Expiration | | | [facility] | | | Date and | | | [facility] | | | Time | | | BLOOD | | | | | | CENTER | | + + + + + + | Product | [id number] | | REFERENCE | | | Blood Type | | | LAB [place] | | | Barcode | | | [facility] | | | | | | [facility] | | | | | | BLOOD | | | | | | CENTER | | + + + + + + | Product | [id number] | | REFERENCE | | | Code | | | LAB [place] | | | | | | [facility] | | | | | | [facility] | | | | | | BLOOD | | | | | | CENTER | | + + + + + + | UNIT # | [id number] | | REFERENCE | | | | | | [facility] [place] | | | | | | [facility] | | | | | | [facility] | | | | | | BLOOD | | | | | | CENTER | | + + + + + + | UNIT ABO | O | | REFERENCE | | | | | | LAB [place] | | | | | | [facility] | | | | | | [facility] | | | | | | BLOOD | | | | | | CENTER | | + + + + + + | UNIT RH | NEG | | REFERENCE | | | | | | LAB [place] | | | | | | [facility] | | | | | | [facility] | | | | | | BLOOD | | | | | | CENTER | | + + + + + + | CROSSMATCH | Compatible | | REFERENCE | | | INTERP | | | LAB [place] | | | | | | [facility] | | | | | | [facility] | | | | | | BLOOD | | | | | | CENTER | | + + + + + + | Unit Status | IS | | REFERENCE | | | | | | LAB [place] | | | | | | [facility] | | | | | | [facility] | | | | | | BLOOD | | | | | | CENTER | | + + + + + + | Blood | [id number] | | REFERENCE | | | Product | | | LAB [place] | | | Expiration | | | [facility] | | | Date and | | | [facility] | | | Time | | | BLOOD | | | | | | CENTER | | + + + + + + | Product | [id number] | | REFERENCE | | | Blood Type | | | LAB [place] | | | Barcode | | | [...] + + + | Specimen Expiration Date: [id number] | REFERENCE LAB | | | [place] | | | [facility] | | | [facility] C[facility] | + + + + + + + + | Performing | Address | City/State/Zipcode | Phone Number | | Organization | | | | + + + + + | REFERENCE LAB | [address] | [place] [address] | [phone] | | [place] | | | | | [facility] [...] | | | POC | Performed by [facility] [address] | | [address] | | | | [address], [place] | | HEART | | | | [address] | | MEDICAL | | | | [...] + | AMILCAR CARD[facility] | [address] | [place] [address] | | | [facility] | | | | | RIVERA FRIAS [...] | | | POC | Performed by [facility] [address] | | [place] | | | | [address] [place] | | HEART | | | | [address] | | MEDICAL | | | | [...] [address] | [place] [address] | | | [facility] | | | | | LABORATORY CERNER [...] | | | POC | Performed by [facility] [address] | | [address] | | | | [address], [place] | | HEART | | | | [address] | | MEDICAL | | | | [...] + | AMILCAR CARDONA | [address] | [place] [address] | | | [facility] | | | | | LABORATORY ALTAGRACIA [...] | | | POC | Performed by [facility] [address] | | [place] | | | | [address] [place] | | HEART | | | | [address] | | MEDICAL | | | | [...] [address] | [place] [address] | | | [facility] | | | | | LABORATORY CERNER [...] | | | POC | Performed by [facility] [address] | | [place] | | | | [address], [place] | | HEART | | | | [address] | | MEDICAL | | | | [...] + | AMILCAR CARDONA | [address] | [place] [address] | | | [facility] | | | | | RIVERA FRIAS [...] | | | POC | Performed by [facility] [address] | | SACRED | | | | [address] [place] | | HEART | | | | [address] | | MEDICAL | | | | [...] + + | AMILCAR CARDONA | [address] | [place] [address] | | | [facility] | | | | | LABORATORY CERNER [...] PROVIDENCE | | | | Performed by [facility] [address] | | SACRED | | | | [address] [place] | | HEART | | | | [address] | | MEDICAL | | | | [...] + | AMILCAR CARDONA | [address] | [place] [address] | | | [facility] | | | | | RIVERA FRIAS [...] | | MEDICAL | | | | [facility] [address], | | CENTER | | | | [place] [address] | | LABORATORY | | | | [...] + + | PROVIDEDEMIE SACRED | [address] | [place] [address] | | | [facility] | | | | | LABORATORY [...] | | | POC | Performed by [facility] [address] | | SACRED | | | | [address] [place], [place] | | HEART | | | | [address] | | MEDICAL | | | | [...] + + | YARELISDEMIKarly BR[place]AN | [address] | [place] [address] | | | [facility] | | | | | LABORATORY CERNER [...] | | | POC | Performed by [facility] [address] | | [address] | | | | [address], [place] | | HEART | | | | [address] | | MEDICAL | | | | [...] [address] | [place] [address] | | | HEART MEDICAL CENTER | [...] | | | POC | Performed by [facility] [address] | | [address]CR[address] | | | | [address] [place] | | HEART | | | | [address] | | MEDICAL | | | | [...] + + | YARELISDEMIKarly [place]FAUSTO | [address] | [place] [address] | | | [facility] | | | | | LABORATORY CERNER [...] | | | POC | Performed by [facility] [address] | | [address] | | | | [address], [place] | | HEART | | | | [address] | | MEDICAL | | | | [...] [address] | [place] [address] | | | HEART [facility] | | | | | LABORATORY [...] | | | POC | Performed by [facility] [address] | | SACRED | | | | [address] [place] | | HEART | | | | [address] | | MEDICAL | | | | [...] + + | YARELISDEMIKarly SATURNINOFAUSTO | [address] | [place] [address] | | | [facility] | | | | | LABORATORY CERNER [...] | PROVIDENCE | | | POC | [facility] [facility] [address], | | SACRED | | | | [place] [address] | | HEART | | | |Performed by [facility] [address], [place] [address] | | MEDICAL | | | | [...] | [address] | [place] [address] | | | [facility] | | | | | LABORATORY CERNER [...] | | | POC | Performed by [facility] [address] | | SACRED | | | | [place] | | HEART | | | | [address] | | MEDICAL | | | | [...] + | AMILCAR CARDONA | [address] | [place] [address] | | | [facility] | | | | | RIVERA FRIAS [...] | PROVIDENCE | | | POC | [facility] [address], | | SACRED | | | | [place] [address] | | HEART | | | |Performed by [facility] [address], [place] [address] | | MEDICAL | | | | [...] + + | YARELISDEMIKarly CARDONA | [address] | [place] [address] | | | [facility] | | | | | RIVERA FRIAS [...] | [facility] | | | POC | [facility] [address], | | SACRED | | | | [place] [address] | | HEART | | | |Performed by [facility] [address], [place] [address] | | MEDICAL | | | | [...] + + | AMILCAR CARDONA | [address] | [place] [address] | | | [facility] | | | | | LABORATORY ALTAGRACIA [...] | TRACEMASTER | | Duration:184 msP Horizontal Reeds:5 degP Front Reeds:55 degQ Onset:508 | | | msQRSD Interval:104 msQT Interval:452 msQTcB:452 msQTcF:452 msQRS | | | Horizontal Reeds:129 degQRS Reeds:-53 degI-40 Horizontal Reeds:77 degI-40 | | | Front Reeds:-44 degT-40 Horizontal Reeds:204 degT-40 Front Reeds:-83 | | | degT Horizontal Reeds:95 degT Wave Reeds:39 degS-T Horizontal Reeds:79 | | | degS-T Front Reeds:49 degSeverity:- ABNORMAL ECG -INTERP:SINUS | | | RHYTHMINTERP:CONSIDER RIGHT VENTRICULAR HYPERTROPHYINTERP:PROBABLE | | | INFERIOR INFARCT, AGE INDETERMINATEINTERP:BORDERLINE ST ELEVATION, | | | ANTERIOR LEADSElectronically signed by: ELIZABETH CAMPEBLL 06-12-2018 | | | 07:37:14 | | |QRS Horizontal Reeds:129 deg | | |QRS Reeds:-53 deg | | |I-40 Horizontal Reeds:77 deg | | |I-40 Front Reeds:-44 deg | | |T-40 Horizontal Reeds:204 deg | | |T-40 Front Reeds:-83 deg | | |T Horizontal Reeds:95 deg | | |T Wave Reeds:39 deg | | |S-T Horizontal Reeds:79 deg | | |S-T Front Reeds:49 deg | | |Severity:- ABNORMAL ECG - [...] [address] | [place] [address] | [phone] | + + + + + CBC [...] [facility] | | | | Performed by [facility] [address] | | SACRED | | | | [address] [place] | | HEART | | | | [address] | | MEDICAL | | | | [...] + | AMILCAR CARDONA | [address] | [place] [address] | | | [facility] | | | | | LABORATORY ALTAGRACIA [...] | | MEDICAL | | | | [facility] [address], | | CENTER | | | | [place] [address] | | LABORATORY | | | | [...] + + | YINE SACRED | [address] | [place] [address] | | | [facility] | | | | | LABORATORY CERNER [...] | | | POC | Performed by [facility] [address] | | SACRED | | | | [address] [place] | | HEART | | | | [address] | | MEDICAL | | | | [...] + | AMILCAR CARDONA | [address] | [place] [address] | | | [facility] | | | | | LABORATORY CERNER [...] | PROVIDENCE | | | POC | [facility] [address], | | SACRED | | | | [place] [address] | | HEART | | | |Performed by [facility] [address], [place] [address] | | MEDICAL | | | | [...] AMILCAR CARDONA | [address] | [place] [address] | | | [facility] | | | | | LABORATORY CERNER [...] | | | POC | Performed by [facility] [address] | | SACRED | | | | [place] | | HEART | | | | [address] | | MEDICAL | | | | [...] + | YARELISCARLOS CARDONA | [address] | [place] [address] | | | [facility] | | | | | LABORATORY JAIMNNER | | | | + + + [...] | | | POC | Performed by [facility] [address] | | SACRED | | | | [address] [place] | | HEART | | | | [address] | | MEDICAL | | | | [...] + | AMILCAR SACRFAUSTO | [address] | [place] [address] | | | [facility] | | | | | LABORATORY CERNER [...] AMILCAR | | | | Performed by [facility] [address] | mmol/L | SACRED | | | | [address], [place] | | HEART | | | | [address] | | MEDICAL | | | | [...] + | YARELISDEMIKarly CARDONA | [address] | [place] [address] | | | [facility] | | | | | LABORATORY ALTAGRACIA [...] [facility]ENCE | | | | Performed by [facility] [address] | | SACRED | | | | [address] [place] | | HEART | | | | [address] | | MEDICAL | | | | [...] CARDONA | [address] | [place] [address] | | | HEART [facility] | | | | | RIVERA [...] CE | | | ARTERIAL | by [facility] [address], | | SACRED | | | | [place] [address] | | HEART | | | |Performed by [facility] [address], [place] [address] | | MEDICAL | | | | [...] + + | AMILCAR CARDONA | [address] | [place] [address] | | | [facility] | | | | | LABORATORY [...] | | | POC | Performed by [facility] [address] | | SACRED | | | | [address] [place], [place] | | HEART | | | | [address] | | MEDICAL | | | | [...] [address] | [place] [address] | | | [facility] | | | | | RIVERA FRIAS [...] | | | POC | Performed by [facility] [address] | | SACRED | | | | [address] [place] | | HEART | | | | [address] | | MEDICAL | | | | [...] + + | YARELISDEMIKarly BRENDAN | [address] | [place] [address] | | | [facility] | [...] | [facility] | | | | by [facility] [address], | mmol/L | SACRED | | | | [place] [address] | | HEART | | | |Performed by [facility] [address], [place] [address] | | MEDICAL | | | | [...] + + | AMILCAR BRENDAN | [address] | [place] [address] | | | [facility] | | | | | LABORATORY CERNER [...] | | | POC | Performed by [facility] [address] | | SACRED | | | | [address], [place] | | HEART | | | | [address] | | MEDICAL | | | | [...] [address] | [place] [address] | | | [facility]ENTER | [...] | TRACEMASTER | | Duration:180 msP Horizontal Reeds:-10 degP Front Reeds:68 degQ Onset:512 | | | msQRSD Interval:110 msQT Interval:444 msQTcB:486 msQTcF:472 msQRS | | | Horizontal Reeds:112 degQRS Reeds:-63 degI-40 Horizontal Reeds:100 | | | degI-40 Front Reeds:-58 degT-40 Horizontal Reeds: degT-40 Front Reeds:160 | | | degT Horizontal Reeds:104 degT Wave Reeds:-11 degS-T Horizontal | | | Reeds:104 degS-T Front Reeds:32 degSeverity:- ABNORMAL ECG -INTERP:SINUS | | | RHYTHMINTERP:PROBABLE LEFT ATRIAL ABNORMALITYINTERP:NONSPECIFIC IVCD | | | WITH LADINTERP:INFERIOR INFARCT, AGE INDETERMINATEINTERP:LATERAL | | | INFARCT, OLDElectronically signed by: ELIZABETH CAMPBELL 06-12-2018 | | | 11:18:02 | | |QRS Horizontal Reeds:112 deg | | |QRS Reeds:-63 deg | | |I-40 Horizontal Reeds:100 deg | | |I-40 Front Reeds:-58 deg | | |T-40 Horizontal Reeds: deg | | |T-40 Front Reeds:160 deg | | |T Horizontal Reeds:104 deg | | |T Wave Reeds:-11 deg | | |S-T Horizontal Reeds:104 deg | | |S-T Front Reeds:32 deg | | |Severity:- ABNORMAL ECG - [...] | [address] | [place] [address] | [phone] | + + + + + PTT [...] | | | seconds.Performed by [facility] | | | | | | [address], | | | | | | [place] [address] | | | | + + + + + + + + | Specimen | + + | Blood specimen | | (specimen) | + + + + + + + | Performing | Address | City/State/Zipcode | Phone Number | | Organization | | | | + + + + + | AMILCAR SACRFAUSTO | [address] | [place] [address] | | | [facility] | | | | | LABORATORY ALTAGRACIA [...] | | | | to 3.5Performed by [facility] | | LABORATORY | | | | [address] [place], [place], | | [place] | | | | [place] [address] | | | | + + + + + + + + | Specimen | + + | Blood specimen | | (specimen) | + + + + + + + | Performing | Address | City/State/Zipcode | Phone Number | | Organization | | | | + + + + + | AMILCAR CARDONA | [address] | [place] [address] | | | [facility] | | | | | RIVERA FRIAS [...] | | MEDICAL | | | | [facility] [address], | | [place] | | | | [place] [address] | | LABORATORY | | | | [...] [address] | [place] [address] | | | [facility] | | | | | LABORATORY [...] PROVIDENCE | | | | Performed by [facility] [address] | | SACRED | | | | [address] [place] | | HEART | | | | [address] | | MEDICAL | | | | [...] AMILCAR CARDONA | [address] | [place] [address] | | | [facility] | | | | | LABORATORY CERNER [...] [facility]ENCE | | | Arterial | by [facility] [address], | mmol/L | SACRED | | | | [place] [address] | | HEART | | | |Performed by [facility] [address], [place] [address] | | MEDICAL | | | | [...] [address] | [place] [address] | | | HEART [facility] | | | | | LABORATORY [...] E | | | Normalized | by [facility] [address], | mg/dL | SACRED | | | | [place] [address] | | HEART | | | |Performed by [facility] [address], [place] [address] | | MEDICAL | | | | [...] AMILCAR CARDONA | [address] | [place] [address] | | | [facility] | | | | | LABORATORY CERNER [...] AMILCAR | | | | Performed by [facility] [address] | | BRENDAN | | | | [address], [place] | | HEART | | | | [address] | | MEDICAL | | | | [...] + | AMILCAR CARDONA | [address] | [place] [address] | | | [facility] | | | | | RIVERA FRIAS [...] +--------- ----+ + | Comment | [id number] | | PROVIDEN CE | | | [...] CE | | | ARTERIAL | by [facility] [address], | | SACRED | | | | [place] [address] | | HEART | | | |Performed by [facility] [address], [place] [address] | | MEDICAL | | | | [...] AMILCAR CARDONA | [address] | [place] [address] | | | [facility] | | | | | RIVERA FRIAS [...] | | | Arterial | Performed by [facility] [address] | mmol/L | SACRED | | | | [address] [place] | | HEART | | | | [address] | | MEDICAL | | | | [...] + + | YARELISDEMIKarly CARDONA | [address] | [place] [address] | | | [facility] | | | | | LABORATORY ALTAGRACIA [...] PROVIDEN CE | | | | by [facility] [address], | mmol/L | SACRED | | | | [place] [address] | | HEART | | | |Performed by [facility] [address], [place] [address] | | MEDICAL | | | | [...] SACRED | [address] | [place] [address] | | | [facility] | | | | | LABORATORY CERNER [...] | | | seconds.Performed by [facility] | | | | | | [address], | | | | | | [place] [address] | | | | + + + + + + + + | Specimen | + + | Blood specimen | | (specimen) | + + + + + + + | Performing | Address | City/State/Zipcode | Phone Number | | Organization | | | | + + + + + | AMILCAR CARDONA | [address] | [place] [address] | | | [facility] | | | | | RIVERA FRIAS [...] | | | Arterial | Performed by [facility] [address] | mmol/L | SACRED | | | | [address] [place] | | HEART | | | | [address] | | MEDICAL | | | | [...] + | AMILCAR SATURNINOFAUSTO | [address] | [place] [address] | | | [facility] | | | | | LABORATORY ALTAGRACIA [...] PROVIDEN CE | | | | by [facility] [address], | mmol/L | SACRED | | | | [place] [address] | | HEART | | | |Performed by [facility] [address], [place] [address] | | MEDICAL | | | | [...] [address] | [place] [address] | | | [facility] | | | | | LABORATORY CERNER [...] [facility] | | | Arterial | by [facility] [address], | mmol/L | SACRED | | | | [place] [address] | | HEART | | | |Performed by [facility] [address], [place] [address] | | MEDICAL | | | | [...] + + | AMILCAR CARDONA | [address] | [place] [address] | | | [facility] | | | | | LABORATORY [...] [facility] | | | | Performed by [facility] [address] | | SACRED | | | | [address] [place] | | HEART | | | | [address] | | MEDICAL | | | | [...] + | AMILCAR CARDONA | [address] | [place] [address] | | | [facility] | | | | | LABORATORY ALTAGRACIA [...] [facility] | | | Arterial | by [facility] [address], | mmol/L | SACRED | | | | [place] [address] | | HEART | | | |Performed by [facility] [address], [place] [address] | | MEDICAL | | | | [...] + + | PROVIDECARLOS CARDONA | [address] | [place] [address] | | | [facility] | | | | | LABORATORY CERNER [...] YINE | | | | Performed by [facility] [address] | | SACRED | | | | [address] [place] | | HEART | | | | [address] | | MEDICAL | | | | [...] + + | AMILCAR CARDONA | [address] | [place] [address] | | | [facility] | | | | | LABORATORY CERSAMAN | | | | + + + + + ECHO Transesophageal (CHIQUITA) (06/11/2018 1:05 PM PDT) + + | Specimen | + + | | + + + + -----+ | Narrative | Performed At | + + -----+ | | [facility] | | Transesophageal Echocardiography Report (CHIQUITA) Demographics Patient | | | Name [facility] Room Number 270 | | | ZIYAD Patient Number [id number] Date of | | | Study 06/11/2018 Visit Number [id number] Accession | | | [id number] Interpreting Sharad Richard | | | Number Physician Date | | | of 1955 Referring Physician ELEANOR BERMUDEZ | | | VERONICA Age 62 year(s) 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 Visible portions of ascending aorta | | | and arch normal. Grade 2atherosclerotic disease of descending aorta.9. | | | Pulmonary artery nizllm69. Normal pericardium. No pericardial fluid. | | [...] Report | | (CHIQUITA) Demographics Patient Name [facility] Room Number 270 | | ZIYAD Patient Number [id number] Date of Study 06/11/2018 Visit | | Number [id number] Alvarez Ross | | MD Jose Manuel Number Physician Date of 1955 | | Referring Physician ELEANOR MARTIN Age 62 year(s) | | Headliner Installer Sanjeev Bradshaw, | | MD Sharad Richard [...] function. Trace TR.7. Pulmonic valve normal Trace OR.8. Visible portions | | of ascending aorta [...] [facility] | | | Arterial | by [place] [address], | mmol/L | SACRED | | | | [place] [address] | | HEART | | | |Performed by [place] [address] [address], [place] [address] | | MEDICAL | | | | [...] PROVIDEDEMIE BRENDAN | [address] | [place] [address] | | | [facility] | | | | | LABORATORY CERNER [...] | | | Normalized | Performed by [facility] [address] | mg/dL | SACRED | | | | [address] [place] | | HEART | | | | [address] | | MEDICAL | | | | [...] + + | AMILCAR CARDONA | [address] | [place] [address] | | | [facility] | | | | | LABORATORY ALTAGRACIA [...] [facility] | | | Arterial | by [facility] [address], | mmol/L | SACRED | | | | [place] | | HEART | | | |Performed by [facility] [address], [place] | | MEDICAL | | | [...] SACRED | [address] | [place], [place] | | | HEART MEDICAL CENTER [...] [facility] | | | | Performed by [facility] [address] | mmol/L | SACRED | | | | [address], [place] | | HEART | | | | [address] | | MEDICAL | | | | [...] [address] | [place] [address] | | | HEART MEDICAL CENTER | [...] | | Screen | | | LAB [place] | | | | | | [facility] | | | | | | [facility] | | | | | | [facility] | | | | | | CENTER | | + + + + + + | ABO | O | | REFERENCE | | | | | | LAB [place] | | | | | | [facility] | | | | | | [facility] | | | | | | [facility] | | | | | | CENTER | | + + + + + + | Rh Type | Negative | | REFERENCE | | | | | | LAB [place] | | | | | | [place] [...] + + + | Specimen Expiration Date: [id number] | REFERENCE LAB | | | [place] | | | [facility] | | | [facility] | + + + + + + + + | Performing | Address | City/State/Zipcode | Phone Number | | Organization | | | | + + + + + | REFERENCE LAB | [address] | [place] [address] | [phone] | | [place] | | | | | [facility] [...] | | | POC | Performed by [facility] [address] | | SACRED | | | | [address], [place] | | HEART | | | | [address] | | MEDICAL | | | | [...] + | AMILCAR CARDONA | [address] | [place] [address] | | | [facility] | | | | | LABORATORY ALTAGRACIA [...] CENTER | | | | 3.5Performed by [facility] [address] | | LABORATORY | | | | [place] | | [place] | | | | [address] | | | | + + + + + + + + | Specimen | + + | Blood specimen | | (specimen) | + + + + + + + | Performing | Address | City/State/Zipcode | Phone Number | | Organization | | | | + + + + + | AMILCAR CARDONA | [address] | [place] [address] | | | [facility] | | | | | RIVERA FRIAS [...] PROVIDEDEMIE | | | | Performed by [facility] [address] | | SACRED [...] [address] | [place] [address] | | | HEART MEDICAL CENTER | [...] | | MEDICAL | | | | [facility] [address], | | CENTER | | | | [place] [address] | | LABORATORY | | | | [...] + + | [facility] SA[facility]ED | [address] | [place] [address] | | | [facility] | | | | | LABORATORY CERNER [...] | | | seconds.Performed by [facility] | | | | | | [address], | | | | | | [place] [address] | | | | + + + + + + + + | Specimen | + + | Blood specimen | | (specimen) | + + + + + + + | Performing | Address | City/State/Zipcode | Phone Number | | Organization | | | | + + + + + | [facility] | [address] | [place] [address] | | | HEART MEDICAL CENTER | [...] [facility] | | | Source | by [facility] [address], | | SACRED | | | | [place] [address] | | HEART | | | |Performed by [facility] [address], [place] [address] | | MEDICAL | | | | [...] + + | YINE SACRFAUSTO | [address] | [place] [address] | | | [facility] | | | | | LABORATORY CERNER [...] - 1.030 | [facility] | | | [place] | | | SACRED | | | [...] | | | SOURCE | Performed by [facility] [address] | | SACRED | | | | [address] [place] | | HEART | | | | [address] | | MEDICAL | | | | [...] + + | PROVIDEDEMIE SACRED | [address] | [place] [address] | | | [facility] | | | | | LABORATORY CERNER [...] | | | POC | Performed by [facility] [address] | | SACRED | | | | [address], [place] | | HEART | | | | [address] | | MEDICAL | | | | [...] + | AMILCAR CARDONA | [address] | [place] [address] | | | [facility] | | | | | LABORATORY ALTAGRACIA [...] | | | seconds.Performed by [facility] | | | | | | [address], | | | | | | [place] [address] | | | | + + + + + + + + | Specimen | + + | Blood specimen | | (specimen) | + + + + + + + | Performing | Address | City/State/Zipcode | Phone Number | | Organization | | | | + + + + + | YARELISDEMIKarly CARDONA | [address] | [place] [address] | | | [facility] | | | | | LABORATORY CERNER [...] | | MEDICAL | | | | [facility] [address], | | CENTER | | | | [place] [address] | | LABORATORY | | | | [...] + + | AMILCAR CARDONA | [address] | [place] [address] | | | HEART [facility] | | | | | LABORATORY [...] CENTER | | | | 3.5Performed by [facility] [address] | | LABORATORY | | | | [place] | | [place] | | | | [address] | | | | + + + + + + + + | Specimen | + + | Blood specimen | | (specimen) | + + + + + + + | Performing | Address | City/State/Zipcode | Phone Number | | Organization | | | | + + + + + | [facility] | [address] | [place] [address] | | | [facility] | | | | | [place] [...] | | | POC | Performed by [facility] [address] | | [address] | | | | [address] [place] | | HEART | | | | [id number] | | MEDICAL | | | | [...] + + | [facility] | [address] | [place] [address] | | | [facility] | | | | | LABORATORY CERNER [...] | | | | | | The [facility] recommends | | | | | | that a positive HCV | | | | | | antibody result be | | | | | | followed up with a HCV | | | | | | Nucleic Acid | | | | | | Amplification test | | | | | | ([id number]).Performed At: | | | | | | [id number] | | | | | | [facility] [address] | | | | | | [place], [place] | | | | | | [phone] Seamus | | | | | | Riya MOJICA Ph:[phone] | | | | + + + + + + + + | Specimen | + + | Blood specimen | | (specimen) | + + + + + + + | Performing | Address | City/State/Zipcode | Phone Number | | Organization | | | | + + + + + | [facility] | [address] | [place] [address] | | | [facility] | | | | | LABORATORY ALTAGRACIA [...] | | | seconds.Performed by [facility] | | | | | | [address], | | | | | | [place] [address] | | | | + + + + + + + + | Specimen | + + | Blood specimen | | (specimen) | + + + + + + + | Performing | Address | City/State/Zipcode | Phone Number | | Organization | | | | + + + + + | [facility] | [address] | [place] [address] | | | [facility] | | | | | LABORATORY ALTAGRACIA [...] | TRACEMASTER | | Duration:152 msP Horizontal Reeds:32 degP Front Reeds:62 degQ Onset:512 | | | msQRSD Interval:110 msQT Interval:416 msQTcB:453 msQTcF:440 msQRS | | | Horizontal Reeds:199 degQRS Reeds:-83 degI-40 Horizontal Reeds:77 degI-40 | | | Front Reeds:-74 degT-40 Horizontal Reeds:242 degT-40 Front Reeds:216 | | | degT Horizontal Reeds:84 degT Wave Reeds:69 degS-T Horizontal Reeds:97 | | | degS-T Front Reeds:107 degSeverity:- ABNORMAL ECG -INTERP:SINUS | | | RHYTHMINTERP:NONSPECIFIC IVCD WITH LADINTERP:INFERIOR INFARCT, | | | OLDElectronically signed by: ELIZABETH CAMPBELL 06-12-2018 11:24:19 | | |QTcB:453 ms | | |QTcF:440 ms | | |QRS Horizontal Reeds:199 deg | | |QRS Reeds:-83 deg | | |I-40 Horizontal Reeds:77 deg | | |I-40 Front Reeds:-74 deg | | |T-40 Horizontal Reeds:242 deg | | |T-40 Front Reeds:216 deg | | |T Horizontal Reeds:84 deg | | |T Wave Reeds:69 deg | | |S-T Horizontal Reeds:97 deg | | |S-T Front Reeds:107 deg | | |Severity:- ABNORMAL ECG - [...] + + | SARITHA REY | [address] | [place] [address] | [phone] | + + + + + Pulmonary [...] | | | seconds.Performed by [facility] | | | | | | [address], | | | | | | [place] [address] | | | | + + + + + + + + | Specimen | + + | Blood specimen | | (specimen) | + + + + + + + | Performing | Address | City/State/Zipcode | Phone Number | | Organization | | | | + + + + + | YARELISDEMIKarly BRENDAN | [address] | [place] [address] | | | [facility] | | | | | LABORATORY CERNER [...] | | | | | | The [facility] recommends | | | | | | that a positive HCV | | | | | | antibody result be | | | | | | followed up with a HCV | | | | | | Nucleic Acid | | | | | | Amplification test | | | | | | ([id number]).Performed At: | | | | | | [id number] | | | | | | [address] | | | | | | [place], [place] | | | | | | [id number] Daniel | | | | | | L Ph:[phone] | | | | + + + [...] + | YARELISDEMIKarly CARDONA | [address] | [place] [address] | | | [facility] | | | | | LABORATORY ALTAGRACIA [...] | | | formula.Performed by [facility] | | | | | | [address], | | | | | | [place] [address] | | | | + + + + + + + + | Specimen | + + | Blood specimen | | (specimen) | + + + + + + + | Performing | Address | City/State/Zipcode | Phone Number | | Organization | | | | + + + + + | AMILCAR CARDONA | [address] | [place] [address] | | | [facility] | | | | | LABORATORY ALTAGRCAIA | | | | + + + + + ABO Rh (06/10/2018 6:49 AM PDT) + + + + + + | Component | Value | Ref Range | Performed | Pathologist | | | | | At | Signature | + + + + + + | ABO | O | | REFERENCE | | | | | | LAB [place] | | | | | | [facility] | | | | | | [facility] | | | | | [facility] | | | | | | [facility] | | + + + + + + | Rh Type | Negative | | REFERENCE | | | | | | LAB [place] | | | | | | [facility] | | | | | | [facility] | | | | | | [facility] | | | | | | [facility] | | + + + + + + + + | Specimen | + + | | + + + + + | Narrative | Performed At | + + + | Specimen Expiration Date: [id number] | REFERENCE LAB | | | [place] | | | [facility] | | | [facility] | + + + + + + + + | Performing | Address | City/State/Zipcode | Phone Number | | Organization | | | | + + + + + | REFERENCE LAB | [address] | [place] [address] | [phone] | | [place] | | | | | [facility] [...] | | Screen | | | LAB [place] | | | | | | [facility] | | | | | | [facility] | | | | | | [facility] | | | | | | CENTER | | + + + + + + + + | Specimen | + + | | + + + + + | Narrative | Performed At | + + + | Specimen Expiration Date: [id number] | REFERENCE LAB | | | [place] | | | [facility] | | | [facility] | + + + + + + + + | Performing | Address | City/State/Zipcode | Phone Number | | Organization | | | | + + + + + | REFERENCE LAB | [address] | [place] [address] | [phone] | | [place] | | | | | [facility] [...] | | | | | | LAB [place] | | | | | | [facility] | | | | | | [facility] | | | | | | [facility] | | | | | | CENTER | | + + + + + + + + | Specimen | + + | | + + + + + | Narrative | Performed At | + + + | Specimen Expiration Date: [id number] | REFERENCE LAB | | | [place] | | | [facility] | | | [facility] | + + + + + + + + | Performing | Address | City/State/Zipcode | Phone Number | | Organization | | | | + + + + + | REFERENCE LAB | [address] | [place] [address] | [phone] | | [place] | | | | | [facility] [...] | | | | | | LAB [place] | | | | | | [facility] | | | | | | [facility] | | | | | | [facility] | | | | | | CENTER | | + + + + + + | Rh Type | Negative | | REFERENCE | | | | | | LAB [place] | | | | | | [facility] | | | | | | [facility] | | | | | | [facility] | | | | | | CENTER | | + + + + + + | Antibody | Positive | | REFERENCE | | | Screen | | | LAB [place] | | | | | | [facility] [...] + + + | Specimen Expiration Date: [id number] | REFERENCE LAB | | | [place] | | | [facility] | | | [facility] | + + + + + + + + | Performing | Address | City/State/Zipcode | Phone Number | | Organization | | | | + + + + + | REFERENCE LAB | [address] | [place] [address] | [phone] | | [place] | | | | | [facility] [...] | | | seconds.Performed by [facility] | | | | | | [address], | | | | | | [place] [address] | | | | + + + + + + + + | Specimen | + + | Blood specimen | | (specimen) | + + + + + + + | Performing | Address | City/State/Zipcode | Phone Number | | Organization | | | | + + + + + | AMILCAR CARDONA | [address] 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 4. Mild destinee infarct ischemia. LARGE SEVERE inferior and | | | Lateral IA. Cath will be recommended to see best options. | | | | | |Cath will be recommended to see best options. | | | | | | | | + + + + +---------+ + + | Performing | Address | City/State[facility] | Phone Number | | Organization [...] | TRACEMASTER | | Duration:176 msP Horizontal Reeds:19 degP Front Reeds:70 degQ Onset:512 | | | msQRSD Interval:110 msQT Interval:444 msQTcB:480 msQTcF:467 msQRS | | | Horizontal Reeds:157 degQRS Reeds:-77 degI-40 Horizontal Reeds:75 degI-40 | | | Front Reeds:-59 degT-40 Horizontal Reeds:240 degT-40 Front Reeds:267 | | | degT Horizontal Reeds:91 degT Wave Reeds:68 degS-T Horizontal Reeds:98 | | | degS-T Front Reeds:103 degSeverity:- ABNORMAL ECG -INTERP:SINUS | | | RHYTHMINTERP:NONSPECIFIC IVCD WITH LADINTERP:INFERIOR INFARCT, | | | OLDElectronically signed by: ELIZABETH CAMPBELL 06-12-2018 11:25:24 | | |QTcB:480 ms | | |QTcF:467 ms | | |QRS Horizontal Reeds:157 deg | | |QRS Reeds:-77 deg | | |I-40 Horizontal Reeds:75 deg | | |I-40 Front Reeds:-59 deg | | |T-40 Horizontal Reeds:240 deg | | |T-40 Front Reeds:267 deg | | |T Horizontal Reeds:91 deg | | |T Wave Reeds:68 deg | | |S-T Horizontal Reeds:98 deg | | |S-T Front Reeds:103 deg | | |Severity:- ABNORMAL ECG - [...] + + | SARITHA TRACE | [address] | [place] [address] | [phone] | + + + + + Magnesium (06/09/2018 3:07 AM PDT) + + + +--------- ----+ + | Component | Value | Ref Range | Performe d | Pathologist | | | | | At | Signature | + + + +--------- ----+ + | Magnesium | 2.1Comment: Performed | 1.7 - 2.4 mg/dL | NOHEMY CE | | | | by [facility] [address], | | SACRED | | | | [place] [address] | | HEART | | | |Performed by [facility] [address], [place] [address] | | MEDICAL | | | | [...] + + | YARELISDEMIKarly SATURNINOFAUSTO | [address] | [place] [address] | | | [facility] | | | | | LABORATORY CERNER [...] ENCE | | | Basophils | by [place] [address], | [place] | SACRED | | | | [place] [address] | | HEART | | | |Performed by [facility] [address], [place] [address] | | MEDICA L | | | [...] + + | [facility] | [address] | [place] [address] | | | [facility] | | | | | LABORATORY CERNER [...] | | MEDICAL | | | | [facility] [address], | | CENTER | | | | [place] [address] | | LABORATORY | | | | [...] + + | AMILCAR CARDONA | [address] | [place] [address] | | | [facility] | | | | | LABORATORY ALTAGRACIA [...] | | | TroponinPerformed by [facility] | | | | | | [address], | | | | | | [place] [address] | | | | + + + + + + + + | Specimen | + + | Blood specimen | | (specimen) | + + + + + + + | Performing | Address | City/State/Zipcode | Phone Number | | Organization | | | | + + + + + | YARELISDEMIKarly BRENDAN | [address] | [place] [address] | | | [facility] | | | | | LABORATORY ALTAGRACIA [...] | TRACEMASTER | | Duration:200 msP Horizontal Reeds:19 degP Front Reeds:58 degQ Onset:512 | | | msQRSD Interval:110 msQT Interval:404 msQTcB:506 msQTcF:469 msQRS | | | Horizontal Reeds:184 degQRS Reeds:265 degI-40 Horizontal Reeds:78 degI-40 | | | Front Reeds:269 degT-40 Horizontal Reeds:240 degT-40 Front Reeds:259 | | | degT Horizontal Reeds:77 degT Wave Reeds:63 degS-T Horizontal Reeds:83 | | | degS-T Front Reeds:99 degSeverity:- ABNORMAL ECG -INTERP:SINUS | | | RHYTHMINTERP:NONSPECIFIC IVCD WITH LADINTERP:INFERIOR INFARCT, | | | OLDElectronically signed by: ELIZABETH CAMPBELL 06-12-2018 11:24:43 | | |QTcB:506 ms | | |QTcF:469 ms | | |QRS Horizontal Reeds:184 deg | | |QRS Reeds:265 deg | | |I-40 Horizontal Reeds:78 deg | | |I-40 Front Reeds:269 deg | | |T-40 Horizontal Reeds:240 deg | | |T-40 Front Reeds:259 deg | | |T Horizontal Reeds:77 deg | | |T Wave Reeds:63 deg | | |S-T Horizontal Reeds:83 deg | | |S-T Front Reeds:99 deg | | |Severity:- ABNORMAL ECG - [...] + | SARITHA TRACEMARIA TERESASTKYLAH | [address] | [place] [address] | [phone] | + + + + + Troponin [...] by | | | | | | [facility] [address], | | | | | | [place] [address] | | | | + + + + + + + + | Specimen | + + | Blood specimen | | (specimen) | + + + + + + + | Performing | Address | City/State/Zipcode | Phone Number | | Organization | | | | + + + + + | AMILCAR CARDONA | [address] | [place] [address] | | | [facility] | | | | | LABORATORY ALTAGRACIA [...] NOHEMY CE | | | | by [facility] [address], | | SACRED | | | | [place], [place] | | HEART | | | |Performed by [facility] [address], [place] | | MEDICAL | | | [...] + + | AMILCAR [facility] | [address] | [place], [place] | | | HEART MEDICAL CENTER [...] | | MEDICAL | | | | [facility] [address], | | CENTER | | | | [place] [address] | | LABORATORY | | | | [...] + + | AMILCAR SACRFAUSTO | [address] | [place] [address] | | | HEART [facility] | | | | | RIVERA [...] | | MATTI Herrera at [address]. | | MEDICAL | | | | [...] | | | TroponinPerformed by [facility] | | | | | | [address], | | | | | | [place] [address] | | | | + + + + + + + + | Specimen | + + | Blood specimen | | (specimen) | + + + + + + + | Performing | Address | City/State/Zipcode | Phone Number | | Organization | | | | + + + + + | AMILCAR CARDONA | [address] | [place] [address] | | | [facility] | | | | | RIVERA FRIAS [...] by | | | | | | [facility] [address], | | | | | | [place] [address] | | | | + + + + + + + + | Specimen | + + | Blood specimen | | (specimen) | + + + + + + + | Performing | Address | City/State/Zipcode | Phone Number | | Organization | | | | + + + + + | [facility] BRENDAN | [address] | [place] [address] | | | [facility] | | | | | RIVERA FRIAS [...] [facility]ENCE | | | | Performed by [facility] [address] | | SACRED | | | | [address] [place] | | HEART | | | | [address] | | MEDICAL | | | | [...] + + | AMILCAR CARDONA | [address] | [place] [address] | | | [facility] | | | | | LABORATORY ALTAGRACIA [...] | | | battery.Performed by [facility] | | | | | | [address], | | | | | | [place] [address] | | | | + + + + + + + + | Specimen | + + | Urine specimen | | (specimen) | + + + + + + + | Performing | Address | City/State/Zipcode | Phone Number | | Organization | | | | + + + + + | AMILCAR CARDONA | [address] | [place] [address] | | | [facility] | | | | | LABORATORY CERNER [...] | | | [place].Performed by [facility] [address] | | | | | | [address] [place] | | | | | | [address] | | | | + + + + + + + + | Specimen | + + | Blood specimen | | (specimen) | + + + + + + + | Performing | Address | City/State/Zipcode | Phone Number | | Organization | | | | + + + + + | AMILCAR CARDONA | [address] | [place] | | | [facility] | | | | | LABORATORY CERNER [...] YARELISNC E | | | SERUM | [facility] [address], | | SACRED | | | | [place] | | HEART | | | |Performed by [facility] [address], [place] | | MEDICAL | | | [...] + | AMILCAR CARDONA | [address] | [place] [address] | | | [facility] | | | | | LABORATORY ALTAGRACIA [...] U/L | [facility]ENCE | | | | [facility] [address] | | SACRED | | | | [place] [address] | | HEART | | | |Performed by [facility] [address], [place] [address] | | MEDICAL | | | | [...] + | AMILCAR CARDONA | [address] | [place] [address] | | | [facility] | | | | | LABORATORY CERNER [...] | | MEDICAL | | | | [facility] [address], | | CENTER | | | | [place] [address] | | LABORATORY | | | | [...] + | YARELISCARLOS CARDONA | [address] | [place] [address] | | | [facility] | | | | | LABORATORY ALTAGRACIA [...] ENCE | | | Basophils | by [facility] [address], | [place]/u[place] | SACRED | | | | [place] [address] | | HEART | | | |Performed by [facility] [address], [place] [address] | | MEDICA L | | | [...] + | AMILCAR CARDONA | [address] | [place] [address] | | | [facility] | | | | | LABORATORY CERNER [...] | [facility] | | | | by [facility] [address], | | SACRED | | | | [place] [address] | | HEART | | | |Performed by [facility] [address], [place] [address] | | MEDICAL | | | | [...] + + | AMILCAR [facility] | [address] | [place] | | | HEART MEDICAL CENTER | [...] U/L | PROVIDEDEMIE | | | | [facility] [address], | | SACRED | | | | [place] | | HEART | | | |Performed by [facility] [address], [place] | | MEDICAL | | | | [...] + + | AMILCAR CARDONA | [address] | [place] [address] | | | [facility] | | | | | LABORATORY ALTAGRACIA [...] - 1.030 | [facility] | | | [place] | | | SACRED | | | [...] | | | SOURCE | Performed by [facility] [address] | | SACRED | | | | [place] | | HEART | | | | [address] | | MEDICAL | | | | [...] + + | AMILCAR CARDONA | [address] | [place] [address] | | | HEART MEDICAL CENTER | [...] DAILY, First dose on | | | [facility] 06/16/18 at 0900, Do not cut | | | or crush., | | + +---+ | | | + +---+ + +-------+ +-------+---+---+ | atorvaSTATin (LIPITOR) tablet | Given | 06/14/20 | 40 mg | | | | 40 mg 40 mg, Oral, NIGHTLY, | | 18 9:29 | | | | | First dose on [facility] 06/11/18 at 2100 | | PM [...] PDT | | | | | Starting [facility] 06/11/18 at 1635, | | | [...] PDT | | | | | Starting [facility] 06/11/18 at 1118, | | | | [...] PDT | | | | | Starting [facility] 06/11/18 at 1635, | | | [...] mg | | Surgical | | Starting [facility] 06/11/18 at 1120, | | 18 11:20 [...]
--- OUTSIDE RECORDS SUMMARY | ~2019-08-21 | XMS | Encounter Summary ---
Demographics + + + | Address | [address] | | | [place] [address] | + + + | Home Phone | | + + + | Preferred Language | Unknown | + + + | Marital Status | | + + + | Evangelical Affiliation | 1041 | + + + | Race | Unknown | + + + | Ethnic Group | Unknown | + + + Author + + + | Author | [facility] | | | and Ankitana | + + + | Organization | [facility] | [...] Team Providers + +------+ + | Care Patrol Police Sergeant Name | Role | Phone | + [...] | | | EMERGENCY CENTER | [address]VE [place], [place] | | | | | [address] | [address] | | | | | [place], [place] | | | | | | [address] | | | | | | [phone] | | | +--------+ + + + [...] through Care Everywhere.ABSCESS, ANTIBI OTIC TREATMENT ONLY (NIGERIAN)documented in this encounter Medications at Time of [...] | | | | | [place] [address] | | | | | | [phone] | | | | | | | | +--------+---------+ + + + | 10/28/ | Office | Cardiology | Carol, | | | 2019 | Visit | | SALVATORE [address] | | | | | | [place], | | | | | | [place] [address] | | | | | | [phone] | | | | | | | [...] + | AMILCAR CARDONA | [address] | [place] [address] | | | [facility] | | | | | LABORATORY [...] PDT | | | | | ONCE, [facility] 12/26/16 at 0450, For 1 | [...]
--- OUTSIDE RECORDS SUMMARY | ~2019-08-21 | XMS | Encounter Summary ---
Demographics + + + | Address | [address] | | | [place] [address] | + + + | Home Phone [...] | Author | [facility] | | | and Ankitana | + + + | Organization | [facility] | | [...] Team Providers + +------+ + | Care Die Presser Name | Role | Phone | + +------+ + | Yolanda Lee | PCP | | + +------+ + Encounter Details +--------+ + + + + | Date | Type | Department | Care Team | Description | +--------+ + + + + | 03/06/ | Hospital | [facility] | Jesse Siddiqi MD | Cellulitis and | | 2015 - | Encounter | HEART MED [facility] OP | [address], | abscess of hand, | | | | INFUSION [address] | [address] floor [place], | except fingers and | | 03/08/ | | [place], [place] | [place] [address] | thumb; Bacteremia | | 2015 | | [address] | [phone] | due to Streptococcus | | | | [phone] | | / Sepsis | +--------+ + [...] | | | | | [place] [address] | | | | | | [phone] | | | | | | | | +--------+---------+ + + + | 10/28/ | Office | Cardiology | Carol, | | | 2019 | Visit | | SALVATORE Moreno [address] | | | | | | [place], | | | | | | [place] [address] | | | | | | [phone] | | | | | | | [...]
--- OUTSIDE RECORDS SUMMARY | ~2019-08-21 | XMS | Encounter Summary ---
Demographics + + + | Address | [address] | | | [place] [address] | + + + | Home Phone [...] | Author | [facility] | | | and Ankitana | + + + | Organization | [facility] [...] Team Providers + +------+ + | Care Shipping And Receiving Weigher Name | Role | Phone | + [...] [address] | | | | [address] | [facility] | | | | | [facility] | [address] [place] [place] | | | | | [place] | [address] | | | | | [address] | | | | | | [phone] | | | +--------+ + + + [...] [address] | | | | | | [address] | | | | | | [place] [address] | | | | | | [phone] | | | | | | | | +--------+---------+ + + + | 10/28/ | Office | Cardiology | Carol, | | | 2019 | Visit | | SALVATORE [address] | | | | | | [place], | | | | | | [place] [address] | | | | | | [phone] | | | | | | | | +--------+---------+ + + + documented as of this encounter Visit Diagnoses Not on filedocumented in this encounter"
--- OUTSIDE RECORDS SUMMARY | ~2019-08-21 | XMS | Encounter Summary ---
Demographics + + + | Address | [address] | | | [place] [address] | + + + | Home Phone [...] + | Author | [facility] | | | and Ankitana | + + + | Organization | [facility] | | [...] Team Providers + +------+ + | Care Disability Hearing Officer Name | Role | Phone | + +------+ + | Yolanda Lee | PCP | | + +------+ + Encounter Details +--------+ + + + + | Date | Type | Department | Care Team | Description | +--------+ + + + + | 02/28/ | Hospital | [facility] | Jesse Siddiqi MD | Cellulitis and | | 2015 | Encounter | HEART MED CTR OP | [address], | abscess of hand, | | | | INFUSION [address] | 9th floor [place], | except fingers and | | | | [place], [place] | [place] [address] | thumb; Bacteremia | | | | [address] | [phone] | due to Streptococcus | | | | [phone] | | / Sepsis | +--------+ + [...] | | | | | [place] [address] | | | | | | [phone] | | | | | | | | +--------+---------+ + + + | 10/28/ | Office | Cardiology | Carol, | | | 2019 | Visit | | SALVATORE Moreno [address] | | | | | | [place] | | | | | | [place] [address] | | | | | | [phone] | | | | | | | [...]
--- OUTSIDE RECORDS SUMMARY | ~2019-08-21 | XMS | Encounter Summary ---
Demographics + + + | Address | [address] | | | [place] [address] | + + + | Home Phone [...] Author | [facility] | | | and Ankitana | + + + | Organization | [facility] | [...] Providers + +------+ + | Care Laborer Poultry Hatchery Name | Role | Phone | + +------+ + PCP | Unavailable | + +------+ + Encounter Details +--------+ + + + + | Date | Type | Department | Care Team | Description | +--------+ + + + + | 03/24/ | Hospital | [facility] | ED, PHYSICIAN | | | 2012 - | Encounter | [facility] | Estephanie Roy, | | | | | MEDICAL [address] | MD [address] | | | 03/26/ | | [place], [place] | [address] [place], [place] | | | 2012 | | [address] | [address] | | | | | [phone] | | | | | | | RuthElizabeth, | | | | | | MD [address] | | | | | | [place] | | | | | | [place] [address] | | | | | | [phone] | | | | | | | [...] 1955 ADMISSION DATE: 03/24/2013 DISCHARGE DATE: 03/26/2013 [id number] / [id number] DISCHARGE DIAGNOSES: 1. Abdominal pain. 2. Nausea [...] p.o. at bedtime. ANNE MARIE PICHARDO ADM:03/24/13 [id number] 03/26/13 DIS Jack DISCHARGE SUMMARY [id number] [facility] Jesse Siddiqi MD,PhD [facility] THIS REPORT IS CONFIDENTIAL AND NOT TO BE RELEASED WITHOUT PROPER AUTHORIZATION. [facility] FOLLOWUP: Continue primary care through the [facility]. Office visit is schedu led for 04/02/2013 at 2 p.m. Discharge time was 38 minutes. Jesse Siddiqi MD,PhD P P TDC/sxs #[id number] cc: Jesse Siddiqi MD,PhD Electronically Signed 05/19/13 1556 Jesse Siddiqi MD,PhD ANNE MARIE PICHARDO ADM:03/24/13 [id number] 03/26/13 DIS Jack DISCHARGE SUMMARY [id number] [facility] Jesse Siddiqi MD,PhD [facility] THIS REPORT IS CONFIDENTIAL AND NOT TO BE RELEASED WITHOUT PROPER AUTHORIZATION.Electronica lly signed by Jesse Siddiqi MD at 05/19/2013 4:02 PM PDTdocumented in this encounter Progress Notes Jesse Siddiqi MD - 03/25/2013 2:59 PM PDT Hospitalist Progress Note Patient Information: Initial Evaluation: Initiated: 03/25/13 at 1500 Service date, if different from initiated date: Patient: ANNE MARIE PICHARDO, a 57yo F admitted on [...] pain assoc with opiate withdrawal while in care home. * HTN- controlled. * CAD- stable * Disposition- plan for home tomorrow CC: //ivnm// Electronically Signed By: Jesse Siddiqi MD,PhD 03/25/13 1516 ANNE MARIE PICHARDO ADM:03/24/13 [id number] ADM Jack PROGRESS NOTE [id number] P [facility] Jesse Siddiqi MD,PhD E-Sign: [facility] THIS REPORT IS CONFIDENTIAL AND NOT TO [...] | | | | | [place] [address] | | | | | | [phone] | | | | | | | | +--------+---------+ + + + | 10/28/ | Office | Cardiology | Carol, | | | 2019 | Visit | | SALVATORE Moreno [address] | | | | | | [place] | | | | | | [place] [address] | | | | | | [phone] | | | | | | | [...] + + | [facility] | [address] | [place] [address] | | | [facility] | [...] + + | [facility] | [address] | [place] [address] | | | [facility] | [...] + + | [facility] | [address] | [place] [address] | | | [facility] | [...] - 1.030 | [facility] | | | [place] | | | [facility]ED | | | [...] + + | [facility] | [address] | [place] [address] | | | [facility] | [...] SACRFAUSTO | [address] | [place] [address] | | | [facility] | [...] + | [facility] | [address] | [place] [address] | | | [facility] | [...] + + | [facility] | [address] | [place] [address] | | | [facility] | [...] + + | Glucose | 146 (H)Comment: Citizen [place] | 65 - 99 mg/dL | [facility] [...] + | [facility] | [address] | [place] [address] | | | [facility] | | | | | LABORATORY | | | | + + + + + Oliveime INR (03/24/2013 12:33 PM PDT) + + [...] + + | [facility] | [address] | [place] [address] | | | [facility] | [...] + | [facility] | [address] | [place] [address] | | | [facility] | [...] + + | [facility] | [address] | [place] [address] | | | [facility] | | | | | LABORATORY | | | | + + + + + XR Abdomen 2 VW (03/24/2013 12:30 PM PDT) + + | Specimen | + + | | + + + + + | Narrative | Performed At | + + + | Exam Performed Location: [facility] ABDOMEN | MISCELANIOUS | | TWO VIEWS [...] free air. | | | S: SQ ([id number]) Signed by: ADELA TAMEZ MD | | + + + + + | Procedure Note | + + | Tim, Rad Conversion - 07/28/2013 8:28 PM PDT Exam Performed Location: [facility] | | at [facility] TWO VIEWSCLINICAL INFORMATION:Central abdominal pain since [...] forobstruction or free air.S: | | SQ ([id number]) Signed by: ADELA TAMEZ MD | | [...] | | | | | |S: SQ ([id number]) Signed by: ADELA TAMEZ MD | + + + +---------+ + + | Performing | Address | City/State/Zipcode | Phone Number | | Organization | | | | + +---------+ + + | MISCELLANEOUS LAB | | | [phone] | + +---------+ + + | MISCELANIOUS LAB | | | [phone] | + +---------+ + + Type and [...] | [address] | [place] [address] | | | [facility] | | | | | LABORATORY [...] + + | Glucose | 149 (H)Comment: Citizen [place] | 65 - 99 mg/dL | [facility] | | | | Diabetes Association | [...] SACRED | [address] | [place] [address] | | | [facility] | | | | | LABORATORY | | | | + + + + + Oliveime INR (03/24/2013 11:16 AM PDT) + + [...] + | [facility] | [address] | [place] [address] | | | [facility] | [...] + + | [facility] | [address] | [place] [address] | | | [facility] | [...] CARDONA | [address] | [place] [address] | | | [facility] | | | | | LABORATORY | | | | + + + + + documented in this encounter Visit Diagnoses Not on filedocumented in this encounter"
--- OUTSIDE RECORDS SUMMARY | ~2019-08-21 | XMS | Encounter Summary ---
Demographics + + + | Address | [address] | | | [place] [address] | + + + | Home Phone [...] | Author | [facility] | | | and Ankitana | + + + | Organization | [facility] [...] Providers + +------+ + | Care Electrical Prospecting Observer Name | Role | Phone | + [...] | | | | [address] | [phone] | | | | | [place] | | | | | | [address] | | | | | | [phone] | | | +--------+ + + + [...] | | | | | [place] [address] | | | | | | [phone] | | | | | | | | +--------+---------+ + + + | 10/28/ | Office | Cardiology | Carol, | | | 2020 | Visit | | SALVATORE Moreno [address] | | | | | | [place], | | | | | | [place] [address] | | | | | | [phone] | | | | | | | | +--------+---------+ + + + documented as of this encounter Visit Diagnoses Not on filedocumented in this encounter"
--- OUTSIDE RECORDS SUMMARY | ~2019-08-21 | XMS | Encounter Summary ---
Demographics + + + | Address | [address] | | | [place] [address] | + + + | Home Phone [...] Author | [facility] | | | and Ankitana | + + + | Organization | [facility] | | [...] Team Providers + +------+ + | Care Commercial Credit Analyst Name | Role | Phone | [...] + + | 02/25/ | Telephone | [facility] | Vida Romeo | Hospital Follow-up | | 2014 | | Internal Medicine | ELÍAS Sharma | | | | | Hospitalists [address] | | | | | [address] [place] | | | | | | [address] | | | | | | [phone] | | | +--------+ + + + [...] | | | | | [place] [address] | | | | | | [phone] | | | | | | | | +--------+---------+ + + + | 10/28/ | Office | Cardiology | Carol, | | | 2019 | Visit | | SALVATORE Moreno [address] | | | | | | [place], | | | | | | [place] [address] | | | | | | [phone] | | | | | | | | +--------+---------+ + + + documented as of this encounter Visit Diagnoses Not on filedocumented in this encounter"
--- OUTSIDE RECORDS SUMMARY | ~2019-08-21 | XMS | Encounter Summary ---
Demographics + + + | Address | [address] | | | [place] [address] | + + + | Home Phone [...] + | Author | [facility] | | | and Ankitana | + + + | Organization | [facility] | [...] Team Providers + +------+ + | Care Endodontist Name | Role | Phone | + +------+ + | Yolanda Lee | PCP | | + +------+ + Encounter Details +--------+ + + + + | Date | Type | Department | Care Team | Description | +--------+ + + + + | 03/07/ | Hospital | [facility] | Jesse Sididqi MD | Cellulitis and | | 2015 | Encounter | [facility] OP | [address], | abscess of hand, | | | | INFUSION [address] | 9[address] floor [place], | except fingers and | | | | [place], [place] | [place] [address] | thumb; Bacteremia | | | | [address] | [phone] | due to Streptococcus | | | | [phone] | | / Sepsis | +--------+ + [...] | | | | | [place] [address] | | | | | | [phone] | | | | | | | | +--------+---------+ + + + | 10/28/ | Office | Cardiology | Carol, | | | 2019 | Visit | | SALVATORE Moreno [address] | | | | | | [place] | | | | | | [place] [address] | | | | | | [phone] | | | | | | | [...]
--- OUTSIDE RECORDS SUMMARY | ~2019-08-21 | XMS | Encounter Summary ---
Demographics + + + | Address | [address] | | | [place] [address] | + + + | Home Phone [...] | Author | [facility] | | | and Ankitana | + + + | Organization | [facility] | [...] Team Providers + +------+ + | Care Fireman Name | Role | Phone | + +------+ + | Luis Alfredo [facility] | PCP | | + [...] | (Primary Dx) | | | | [place] [address] | [facility] | | | | | [facility] | [place] [address] | | | | | [place], [place] | [phone] | | | | | [address] | | | | | | [phone] | | | +--------+ + + + [...] cannot be sent through Care Everywhere.DENTAL ABSCESS (AZERI)documented in this encounter Medications at Time of [...] | | | | | | vessel, lumbee or | | | | | | [...] | | | | | [place] [address] | | | | | | [phone] | | | | | | | | +--------+---------+ + + + | 10/28/ | Office | Cardiology | Carol, | | | 2019 | Visit | | SALVATORE Moreno [address] | | | | | | [place], | | | | | | [place] [address] | | | | | | [phone] | | | | | | | [...] TRACKING (3 MO.) Visit Date Location | [facility] | | Type Diagnoses | | | -------- ---- | | | 04/03/2014 18:34 [facility] Emergency Dental | | | Problem; VISIT COUNT (1 YR.) Visits Medicaid [place] Dx | | | Location ------ --------- 2 0 | | | 5 0 | | | [facility] 7 0 Total | | | Note: Visits indicate total known visits. Medicaid [place] Dx are the | | | number of primary diagnoses on the [facility]'s non-emergent dx list. | | | | | | --- Care Recommendation: Care at [facility] | | | Past Medical & Surgical [...] , disabled, person to notify Miriam Cruz, daughter | | + [...]
--- OUTSIDE RECORDS SUMMARY | ~2019-08-21 | XMS | Encounter Summary ---
Demographics + + + | Address | [address] | | | [place] [address] | + + + | Home Phone [...] Author | [facility] | | | and Ankitana | + + + | Organization | [facility] | | | and Ankitana | + + + | Address | Unknown | + + + | Phone | Unavailable | + + + Support + + +---------+ + | Name | Relationship | Address | Phone | + + +---------+ + | Lizz Cruz | ECON | Unknown | | + + +---------+ + | Becyk Anthony | ECON | Unknown | | + + +---------+ + Care Team Providers + +------+ + | Care 3D Modeler Name | Role | Phone | + [...] | [address] | [place] [address] | (Primary Dx) | | | | [place] | [phone] | | | | | [address] | | | | | | [phone] | | | +--------+---------+ + + + [...] at home. Do n tlift anything heavier [id number]. Your healthcare provider may give you a [...] the hospital, begin with short wal ks (dydik6oefreye) at home. Go a little longer each [...] urinating Any unusual bleeding Date Last Reviewed: 07/06/201619999041-5499 [employer]. [address] [place] [address]. All [facility] reserved. This information is not intended as a substitute for professional medical care. Always follow your healthcare professional's instructions. documented in this encounter Progress Notes Jayne Rayo ARNP - 06/29/2018 11:30 AM PDTFormatting of this note might be differ ent from the original. [facility] Post-Operative Visit Pt. Name/Age/: Smitha Fletcher 62 y.o. 1955 Med. Record Number: [id number] Date of Service: 06/29/2018 Primary procedure: 1. [...] a new PCP in her local area ([place], [place]) SUBJECTIVE: The chart and medications were [...] condition Electronically signed by: SALVATORE Restrepo, SHANA, GRANITE BLOCK PAVER-C 06/29/2018 10:18 Jayne Rayo DNP, GRANITE BLOCK PAVER-C Cardiothoracic [facility] [address] [place] [address] Portions of this chart may have been created with [employer] voice recognition software. Occasi onal wrong-word or [...] | | | | | [place] [address] | | | | | | [phone] | | | | | | | | +--------+---------+ + + + | 10/28/ | Office | Cardiology | Carol, | | | 2019 | Visit | | SALVATORE Moreno [address] | | | | | | [place], | | | | | | [place] [address] | | | | | | [phone] | | | | | | | | +--------+---------+ + + + documented as of this encounter Visit Diagnoses + + | Diagnosis | + + | Status post three vessel coronary artery bypass - Primary Postsurgical aortocoronary | | bypass status | + + documented in this encounter"
--- OUTSIDE RECORDS SUMMARY | ~2019-08-21 | XMS | Encounter Summary ---
Demographics + + + | Address | [address] | | | [place] [address] | + + + | Home Phone [...] [facility] | | | and Ankitana | + + + | Organization | [facility] | | | and [...] Team Providers + +------+ + | Care Environmental Resource Specialist Name | Role | Phone | + +------+ + | Luis Alfredo [facility] | PCP | | + +------+ [...] | (Primary Dx) | | | | [place] [address] | [facility] | | | | | [facility] | [place] [address] | | | | | [place], [place] | [phone] | | | | | [address] | | | | | | [phone] | | | +--------+ + + + [...] cannot be sent through Care Everywhere.DENTAL ABSCESS (CROATIAN)documented in this encounter Medications at Time of [...] | | | | | | vessel, nanwalek or | | | | | | [...] | | | | | [place] [address] | | | | | | [phone] | | | | | | | | +--------+---------+ + + + | 10/28/ | Office | Cardiology | Carol, | | | 2019 | Visit | | SALVATORE Moreno [address] | | | | | | [place], | | | | | | [place] [address] | | | | | | [phone] | | | | | | | [...] -------- ---- | | | 04/03/2014 18:34 [facility] Emergency Dental | | | Problem; VISIT COUNT (1 YR.) Visits Medicaid [place] Dx | | | Location ------ --------- 2 0 | | | 5 0 | | | [facility] 7 0 Total | | | Note: Visits indicate total known visits. Medicaid [place] Dx are the | | | number of primary diagnoses on the [facility]'s non-emergent dx list. | | | | | | --- Care Recommendation: Care at [facility] | | | Past Medical [...]
--- OUTSIDE RECORDS SUMMARY | ~2019-08-21 | XMS | Encounter Summary ---
Demographics + + + | Address | [address] | | | [place] [address] | + + + | Home Phone [...] | Author | [facility] | | | and Ankitana | + + + | Organization | [facility] [...] Providers + +------+ + | Care Wood Science Professor Name | Role | Phone | + +------+ + | Yolanda Lee | PCP | | + +------+ + Encounter Details +--------+ + + + + | Date | Type | Department | Care Team | Description | +--------+ + + + + | 03/04/ | Hospital | [facility] | Jesse Siddiqi MD | Cellulitis and | | 2015 | Encounter | [facility] | [address], | abscess of hand, | | | | CARDIAC MEDICAL [address] | 9[address] floor [place], | except fingers and | | | | [address] [place], | [place] [address] | thumb; Bacteremia | | | | [place] [address] | [phone] | due to Streptococcus | | | | [phone] | | / Sepsis | +--------+ + [...] AVS Dc instruction paper. Electronically signed by Nyaa Oliveira RN at 015 8:04 PM PDTdocumented [...] | | | | | | [place] [address] | | | | | | [phone] | | | | | | | | +--------+---------+ + + + | 10/28/ | Office | Cardiology | Carol, | | | 2019 | Visit | | SALVATORE Moreno [address] | | | | | | [place], | | | | | | [place] [address] | | | | | | [phone] | | | | | | | [...]
--- OUTSIDE RECORDS SUMMARY | ~2019-08-21 | XMS | Encounter Summary ---
Demographics + + + | Address | [address] | | | [place] [address] | + + + | Home Phone [...] Author | [facility] | | | and Ankitana | + + + | Organization | [facility] | | | [...] Providers + +------+ + | Care Senior Risk Manager Name | Role | Phone | [...] | | | CENTER [address] | [place], [place] | | | | | [place] | [address] | | | | | [place] | | | | | | [address] | | | | | | [phone] | | | +--------+ + + + [...] | | | | | [place] [address] | | | | | | [phone] | | | | | | | | +--------+---------+ + + + | 10/28/ | Office | Cardiology | Carol, | | | 2019 | Visit | | SALVATORE Moreno [address] | | | | | | [place], | | | | | | [place] [address] | | | | | | [phone] | | | | | | | [...] + + + | [facility] | [address] | [place] [address] | | | [facility] | | | | | LABORATORY | | | | + + + + + documented in this encounter Visit Diagnoses Not on filedocumented in this encounter"
--- OUTSIDE RECORDS SUMMARY | ~2019-08-21 | XMS | Encounter Summary ---
Demographics + + + | Address | [address] | | | [place] [address] | + + + | Home Phone [...] | Author | [facility] | | | and Ankitana | + + + | Organization | [facility] | | | [...] Team Providers + +------+ + | Care Interactive Art Director Name | Role | Phone | [...] | | | CENTER [address] | [place], [place] | | | | | [address] | [address] | | | | | [place] | | | | | | [address] | | | | | | [phone] | | | +--------+ + + + [...] | | | | | [place] [address] | | | | | | [phone] | | | | | | | | +--------+---------+ + + + | 10/28/ | Office | Cardiology | Carol, | | | 2019 | Visit | | SALVATORE Moreno [address] | | | | | | [place], | | | | | | [place] [address] | | | | | | [phone] | | | | | | | | +--------+---------+ + + + documented as of this encounter Visit Diagnoses Not on filedocumented in this encounter"
--- OUTSIDE RECORDS SUMMARY | ~2019-08-21 | XMS | Encounter Summary ---
Demographics + + + | Address | [address] | | | [place] [address] | + + + | Home Phone [...] | Author | [facility] | | | and Ankitana | + + + | Organization | [facility] [...] Team Providers + +------+ + | Care Portfolio Manager Name | Role | Phone | [...] | apnea, | [address] | [place] | | | | | unspecified | [address] [place] | [place], | | | | | type | [place], [place] | [place] [address] | | | | | Procedures | [address] | Phone: | | | | | [place] POLYSOM | Phone: | [phone] | | | | | 6/>YRS SLEEP | [phone] | Fax: | | | | | 4/> ADDL | Fax: | [phone] | | | | | SAJAN ATTND | [phone] | | | | | | [place] POLYSOM | | | | | | [...] + + | 03/10/ | Hospital | [facility] | Jessy Agarwal MD | Sleep apnea, | | 2019 - | Encounter | MED CTR SLEEP | [address] | unspecified type | | | | CENTER [address] | [place] | | | 03/11/ | | [place] | [address] | | | 2018 | | [address] | | | | | | [phone] | | | +--------+ + + + [...] | 2018 | Visit | | MD Geroge [address] | | | | | | [place] | | | | | | [place] [address] | | | | | | [phone] | | | | | | | | +--------+---------+ + + + | 10/28/ | Office | Cardiology | Carol, | | | 2019 | Visit | | SALVATORE Moreno [address] | | | | | | [place] | | | | | | [place] [address] | | | | | | [phone] | | | | | | | [...] [facility] | | | [place] [address] Polysomnogram | | | Report on Smitha [...] | sleep quality during sleep study as usual.Appointment Specialist note: patient | | | tried and [...] have been created with | | | [employer] voice recognition software. Occasional wrong-word or | [...] this chart may have been created with [employer] voice | | |recognition software. Occasional wrong-word [...] PDT [facility] | | [place], [place] [address]Rpuleymczgmxm Report on Smitha | | [place] Pich[place] [...] quality during sleep study as | | usual.Appointment Specialist note: patient tried and tolerated medium airfit [...] this chart may have been created with [employer] voice recognition software. | | Occasional wrong-word [...] this chart may have been created with [employer] voice recognition software. Occasi onal wrong-word or [...]
--- OUTSIDE RECORDS SUMMARY | ~2019-08-21 | XMS | Encounter Summary ---
Demographics + + + | Address | [address] | | | [place] [address] | + + + | Home Phone [...] [facility] | | | and Ankitana | + + + | Organization | [facility] | [...] Providers + +------+ + | Care Supervisor Wet Pour Name | Role | Phone | + +------+ + | Yolanda Lee | PCP | | + +------+ + Encounter Details +--------+ + + + + | Date | Type | Department | Care Team | Description | +--------+ + + + + | 03/12/ | Hospital | [facility] | Jesse Siddiqi MD | | | 2015 | Encounter | HEART MED CTR | [address], | | | | | NEUROLOGY [address] | 9th floor [place] | | | | | [place], [place] | [place] [address] | | | | | [address] | [phone] | | | | | [phone] | | | +--------+ + + + [...] | | | | | [place] [address] | | | | | | [phone] | | | | | | | | +--------+---------+ + + + | 10/28/ | Office | Cardiology | Carol, | | | 2019 | Visit | | SALVATORE Moreno [address] | | | | | | [place], | | | | | | [place] [address] | | | | | | [phone] | | | | | | | [...]
--- OUTSIDE RECORDS SUMMARY | ~2019-08-21 | XMS | Encounter Summary ---
Demographics + + + | Address | [address] | | | [place] [address] | + + + | Home Phone [...] | Author | [facility] | | | and Ankitana | + + + | Organization | [facility] [...] Team Providers + +------+ + | Care Reel And Rewinder Operator Name | Role | Phone | [...] | | | CENTER [address] | [place], [place] | | | | | [address] | [address] | | | | | [place] | | | | | | [address] | | | | | | [phone] | | | +--------+ + + + [...] | | | | | [place] [address] | | | | | | [phone] | | | | | | | | +--------+---------+ + + + | 10/28/ | Office | Cardiology | Carol, | | | 2019 | Visit | | SALVATORE Moreno [address] | | | | | | [place], | | | | | | [place] [address] | | | | | | [phone] | | | | | | | | +--------+---------+ + + + documented as of this encounter Visit Diagnoses Not on filedocumented in this encounter"
--- OUTSIDE RECORDS SUMMARY | ~2019-08-21 | XMS | Encounter Summary ---
Demographics + + + | Address | [address] | | | [place] [address] | + + + | Home Phone [...] | [facility] | | | and Ankitana | + + + | Organization | [facility] | | | and [...] Team Providers + +------+ + | Care Aircraft Communicator Name | Role | Phone | + [...] Congestive | MD Jorge | [address] | | | | | heart | [address] | [place], | | | | | failure, | [address] | [place] | | | | | unspecified | [place], | [address] | | | | | HF | [place] [address] | Phone: | | | | | chronicity, | Phone: | [phone] | | | | | unspecified | [phone] | Fax: | | | | | heart | Fax: | [phone] | | | | | failure type | [phone] | | | | | | (HCC) | | | | | | | Procedures | | | | | | | ECHO | | | | | | | Complete AR | | | | | | | ECHO HEART | | | | | | | XTHORACIC,CO | | | | | | | MPLETE W | | | | | | | DOPPLER AR | | | | | | | [...] + + | 10/01/ | Telephone | [facility] | Jorge Siddiqi, | Other (patient needs | | 2018 | | CARDIOLOGY [address] | [address] [facility] | an echo also) | | | | [address] [place], | [place], | | | | | [place] [address] | [place] [address] | | | | | [phone] | [phone] | | | | | | | [...] | | | | | [place] [address] | | | | | | [phone] | | | | | | | | +--------+---------+ + + + | 01/23/ | Office | Cardiology | Carol, | | | 2019 | Visit | | SALVATORE Moreno [address] | | | | | | [place], | | | | | | [place] [address] | | | | | | [phone] | | | | | | | [...]
--- OUTSIDE RECORDS SUMMARY | ~2019-08-21 | XMS | Encounter Summary ---
Demographics + + + | Address | [address] | | | [place] [address] | + + + | Home Phone [...] + | Author | [facility] | | | and Ankitana | + + + | Organization | [facility] | [...] Team Providers + +------+ + | Care Natural Science Curator Name | Role | Phone | [...] MD Rock | | | | | [facility] [address] | [address] | | | | | [address] | [place] | | | | | [place] | [address] | | | | | [address] | | | | | | [phone] | | | +--------+ + + + [...] | | | | | | [place] [address] | | | | | | [phone] | | | | | | | | +--------+---------+ + + + | 10/28/ | Office | Cardiology | Carol, | | | 2019 | Visit | | SALVATORE Moreno [address] | | | | | | [place], | | | | | | [place] [address] | | | | | | [phone] | | | | | | | | +--------+---------+ + + + documented as of this encounter Visit Diagnoses Not on filedocumented in this encounter"
--- OUTSIDE RECORDS SUMMARY | ~2019-08-21 | XMS | Encounter Summary ---
Demographics + + + | Address | [address] | | | [place] [address] | + + + | Home Phone [...] | Author | [facility] | | | and Ankitana | + + + | Organization | [facility] | [...] Team Providers + +------+ + | Care Pastry Sous Chef Name | Role | Phone | + [...] | | | | | | | ([facility]) | | | | | [...] | OP [address] | [place], [place] | | | | | [place], [place] | [phone] | | | | | [address] | | | | | | [phone] | Aba Sampson T, | | | | | | MD [address] | | | | | | [place], [place] | | | | | | [phone] | | | | | | | [...] normal Trace | | | | | NM. 8. Visible portions of ascending aorta and arch normal. Grade | | | | | 2 atherosclerotic disease of descending aorta. 9. Pulmonary | | | | | artery normal 10. Normal pericardium. No pericardial fluid. No | | | | | pleural fluid. Post-procedure Summary Dx: 1. 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 LV function is improved [...] 06/12/18 1200 by | | eral | fdln-jpf-[id number] catheter system; | Monica Allison RN | [...] | | | procedure documentation); Mask | FAMILY PRACTICE NURSE PRACTITIONER | | | | Ventilation: EZ; Airway [...] | | | Yes; Yes; All; OR; Farmworker Fur; | | | | | Ashly Bradshaw [...] | | | | | [place] [address] | | | | | | [phone] | | | | | | | | +--------+---------+ + + + | 10/28/ | Office | Cardiology | Carol, | | | 2019 | Visit | | SALVATORE Moreno [address] | | | | | | [place], | | | | | | [place] [address] | | | | | | [phone] | | | | | | | [...] At | + + + | Ashly Bradshwa MD 06/11/2018 11:50 Central Venous Line | [...] this time Person | | | recording: arc air operator Performed by: ASHLY BRADSHAW Location | | [...] noted at this time | |Person recording: arc air operator | |Performed by: ASHLY BRADSHAW | |Location [...] | r | | | | Starting [facility] 06/11/18 at 1140, | | | | | | | Anesthesia Intra-op | | | | | | + +---------+ + +-------+---+ +---+---+ | | | +---+---+ + +-------+ +-------+---+---+ | esmolol (BREVIBLOC) 10 mg/mL | Given | 06/11/20 | 50 mg | | | | injection Intravenous, PRN, | | 18 10:06 | | | | | Starting [facility] 06/11/18 at 1006, | | AM PDT [...]
--- OUTSIDE RECORDS SUMMARY | ~2019-08-21 | XMS | Encounter Summary ---
Demographics + + + | Address | [address] | | | [place] [address] | + + + | Home Phone [...] | [facility] | | | and Ankitana | + + + | Organization | [facility] | | [...] Team Providers + +------+ + | Care Psychology Clinician Name | Role | Phone | + +------+ + | [facility] | PCP | | + [...] | | [facility]ILY EMERG[facility]Y | [address] | (Primary Dx) | | | | CENTER [address] [place], [place] | | | | | [address] | [address] | | | | | [place], [place] | | | | | | [address] | | | | | | [phone] | | | +--------+ + + + [...] be sent through Care Everywhere.HIP CONTUSION ( SAMI)documented in this encounter Medications at Time of [...] | | | | | [place] [address] | | | | | | [phone] | | | | | | | | +--------+---------+ + + + | 10/28/ | Office | Cardiology | Carol, | | | 2019 | Visit | | SALVATORE Moreno [address] | | | | | | [place], | | | | | | [place] [address] | | | | | | [phone] | | | | | | | [...] OF THE LEFT HIP, 09/27/2013 CLINICAL | [place] [facility] [...] + + | [facility] | [facility], [address] | [place] [address] | [phone] | | | Lucio | | | + + + + + XR Pelvis 1 or 2 Vw (09/27/2013 7:51 PM PST) + + | Specimen | + + | | + + + + + | Narrative | Performed At | + + + | AP PELVIS AND TWO VIEWS OF THE LEFT HIP, 09/27/2013 CLINICAL | [facility] | | INFORMATION: Worsening left hip pain [...] + + | [place] [facility] | [facility], [address] | [place] [address] | [phone] | | | Lucio | | | [...]
--- OUTSIDE RECORDS SUMMARY | ~2019-08-21 | XMS | Encounter Summary ---
Demographics + + + | Address | [address] | | | [place] [address] | + + + | Home Phone [...] [facility] | | | and Aknitana | + + + | Organization | [facility] | [...] Team Providers + +------+ + | Care Sofa Back Upholsterer Name | Role | Phone | + [...] [address] | | | | | [place], | [place], | | | | | [place] [address] | [place] [address] | | | | | [phone] | [phone] | | | | | | | [...] | | | | | [place] [address] | | | | | | [phone] | | | | | | | | +--------+---------+ + + + | 10/28/ | Office | Cardiology | Carol, | | | 2019 | Visit | | SALVATORE Moreno [address] | | | | | | [place] | | | | | | [place] [address] | | | | | | [phone] | | | | | | | | +--------+---------+ + + + documented as of this encounter Visit Diagnoses Not on filedocumented in this encounter"
--- OUTSIDE RECORDS SUMMARY | ~2019-08-21 | XMS | Encounter Summary ---
Demographics + + + | Address | [address] | | | [place] [address] | + + + | Home Phone [...] + | Author | [facility] | | | and Ankitana | + + + | Organization | [facility] | | [...] Team Providers + +------+ + | Care Coat Room Attendant Name | Role | Phone | + +------+ + | Yolanda Lee | PCP | | + +------+ + Encounter Details +--------+ + + + + | Date | Type | Department | Care Team | Description | +--------+ + + + + | 03/11/ | Hospital | [facility] | Jesse Siddiqi MD | | | 2015 | Encounter | HEART MED CTR | [address], | | | | | NEPHROLOGY [address] | 9th floor [place], | | | | | [address] [place], [place] | [place] [address] | | | | | [address] | [phone] | | | | | [phone] | | | +--------+ + + + [...] | | | | | | [place] [address] | | | | | | [phone] | | | | | | | | +--------+---------+ + + + | 10/28/ | Office | Cardiology | Carol, | | | 2019 | Visit | | SALVATORE Moreno [address] | | | | | | [place], | | | | | | [place] [address] | | | | | | [phone] | | | | | | | [...]
--- OUTSIDE RECORDS SUMMARY | ~2019-08-21 | XMS | Encounter Summary ---
Demographics + + + | Address | [address] | | | [place] [address] | + + + | Home Phone [...] | Author | [facility] | | | and Ankitana | + + + | Organization | [facility] | | [...] Team Providers + +------+ + | Care Dean For Student Affairs Name | Role | Phone | + [...] | | | | | [place] | [address] | | | | | [place] | | | | | | [address] | | | | | | [phone] | | | +--------+ + + + [...] | | | | | [place] [address] | | | | | | [phone] | | | | | | | | +--------+---------+ + + + | 10/28/ | Office | Cardiology | Carol, | | | 2019 | Visit | | SALVATORE Moreno [address] | | | | | | [place], | | | | | | [place] [address] | | | | | | [phone] | | | | | | | | +--------+---------+ + + + documented as of this encounter Visit Diagnoses Not on filedocumented in this encounter"
--- OUTSIDE RECORDS SUMMARY | ~2019-08-21 | XMS | Encounter Summary ---
Demographics + + + | Address | [address] | | | [place] [address] | + + + | Home Phone [...] | [facility] | | | and Ankitana | + + + | Organization | [facility] | [...] Providers + +------+ + | Care Junior Media Buyer Name | Role | Phone | + +------+ + | Yolanda Lee | PCP | | + +------+ + Encounter Details +--------+ + + + + | Date | Type | Department | Care Team | Description | +--------+ + + + + | 03/11/ | Hospital | [facility] | Jesse Siddiqi MD | | | 2015 | Encounter | HEART MED CTR | [address], | | | | | NEPHROLOGY [address] | 9th floor [place], | | | | | [address] [place], [place] | [place] [address] | | | | | [address] | [phone] | | | | | [phone] | | | +--------+ + + + [...] | | | | | | [place] [address] | | | | | | [phone] | | | | | | | | +--------+---------+ + + + | 10/28/ | Office | Cardiology | Carol, | | | 2019 | Visit | | SALVATORE Moreno [address] | | | | | | [place], | | | | | | [place] [address] | | | | | | [phone] | | | | | | | [...]
--- OUTSIDE RECORDS SUMMARY | ~2019-08-21 | XMS | Encounter Summary ---
Demographics + + + | Address | [address] | | | [place] [address] | + + + | Home Phone [...] + + | Author | [facility] | | | and Ankitana | + + + | Organization | [facility] | | [...] Team Providers + +------+ + | Care Business Owner/Engineer Name | Role | Phone | + [...] [address] | | | | | [place] [address] | [facility] | | | | | [place] [address] | [place] [address] | | | | | [place] | [phone] | | | | | [address] | | | | | | [phone] | | | +--------+ + + + [...] | | | | | | [place] [address] | | | | | | [phone] | | | | | | | | +--------+---------+ + + + | 10/28/ | Office | Cardiology | Carol, | | | 2019 | Visit | | SALVATORE Moreno [address] | | | | | | [place], | | | | | | [place] [address] | | | | | | [phone] | | | | | | | | +--------+---------+ + + + documented as of this encounter Visit Diagnoses Not on filedocumented in this encounter"
--- OUTSIDE RECORDS SUMMARY | ~2019-08-21 | XMS | Encounter Summary ---
Demographics + + + | Address | [address] | | | [place] [address] | + + + | Home Phone [...] + | Author | [facility] | | | and Ankitana | + + + | Organization | [facility] | | [...] Team Providers + +------+ + | Care Caustic Liquor Maker Name | Role | Phone | [...] | CENTER [address] | | | [address] | | [address] | [place] | | | 2006 | | [place] | [phone] | | | | | [address] | | | | | | [phone] | | | +--------+ + + + [...] | | | | | [place] [address] | | | | | | [phone] | | | | | | | | +--------+---------+ + + + | 10/28/ | Office | Cardiology | Carol, | | | 2019 | Visit | | SALVATORE Moreno [address] | | | | | | [place], | | | | | | [place] [address] | | | | | | [phone] | | | | | | | | +--------+---------+ + + + documented as of this encounter Visit Diagnoses Not on filedocumented in this encounter"
--- OUTSIDE RECORDS SUMMARY | ~2019-08-21 | XMS | Encounter Summary ---
Demographics + + + | Address | [address] | | | [place] [address] | + + + | Home Phone [...] | Author | [facility] | | | and Ankitana | + + + | Organization | [facility] | | [...] Team Providers + +------+ + | Care Financial Intern Name | Role | Phone | [...] | | | CENTER [address] | [place], [place] | | | | | [place] | [address] | | | | | [place] | | | | | | [address] | | | | | | [phone] | | | +--------+ + + + [...] | | | | | | [place] [address] | | | | | | [phone] | | | | | | | | +--------+---------+ + + + | 10/28/ | Office | Cardiology | Carol, | | | 2019 | Visit | | SALVATORE Moreno [address] | | | | | | [place], | | | | | | [place] [address] | | | | | | [phone] | | | | | | | [...] + + + | Exam Performed Location: [facility] | MISCELANIOUS | | CT ABDOMEN AND [...] 07/28/2013 9:19 PM PDT Exam Performed [facility] WITH CONTRASTCLINICAL INFORMATION:Right | [...] + | MISCELLANEOUS LAB | | | [phone] | + +---------+ + + | MISCELANIOUS LAB | | | [phone] | + +---------+ + + Urinalysis With [...] - 1.030 | [facility] | | | [facility] | | | [facility] | | [...] [facility] | [address] | [place] [address] | | | [facility] | | [...] + | [facility] | [address] | [place] [address] | | | [facility] | | [...] 88 | 70 - 350 U/L | [facility] | | | | | | DARCIE [...] + | [facility] | [address] | [place] [address] | | | [facility] [...] + | [facility] | [address] | [place] [address] | | | [facility] | | | | | LABORATORY | | | | + + + + + documented in this encounter Visit Diagnoses Not on filedocumented in this encounter"
--- OUTSIDE RECORDS SUMMARY | ~2019-08-21 | XMS | Encounter Summary ---
Demographics + + + | Address | [address] | | | [place] [address] | + + + | Home Phone [...] | Author | [facility] | | | and Ankitana | + + + | Organization | [facility] | | [...] Team Providers + +------+ + | Care Mud Mixer Name | Role | Phone | + [...] Question | | 2018 | | CARDIOLOGY [facility] | [address] | | | | | [address] | [address] [place], | | | | | [address] | [place] [address] | | | | | [address] | [phone] | | | | | [phone] | | | +--------+ + + + [...] | | | | | | [place] [address] | | | | | | [phone] | | | | | | | | +--------+---------+ + + + | 10/28/ | Office | Cardiology | Carol, | | | 2019 | Visit | | SALVATORE Moreno [address] | | | | | | [place], | | | | | | [place] [address] | | | | | | [phone] | | | | | | | | +--------+---------+ + + + documented as of this encounter Visit Diagnoses Not on filedocumented in this encounter"
--- OUTSIDE RECORDS SUMMARY | ~2019-08-21 | XMS | Encounter Summary ---
Demographics + + + | Address | [address] | | | [place] [address] | + + + | Home Phone [...] Author | [facility] | | | and Ankitana | + + + | Organization | [facility] | [...] Team Providers + +------+ + | Care Blocker Metal Base Name | Role | Phone | + +------+ + | Kiran Oneill DO | PCP | | + +------+ + Encounter Details +--------+---------+ + + + | Date | Type | Department | Care Team | Description | +--------+---------+ + + + | 09/10/ | Surgery | [facility] | RichardSeamus W, | RIGHT EXTRACTION | | 2018 | | MED CTR OR INTRA OP | MD [address] | CATARACT WITH LENS | | | | [address] | [place], [place] | IMPLANT | | | | [place], [place] | [address] | | | | | [address] | | | | | | [phone] | | | +--------+---------+ + + + [...] | | | | | | [place] [address] | | | | | | [phone] | | | | | | | | +--------+---------+ + + + | 10/28/ | Office | Cardiology | Carol, | | | 2019 | Visit | | SALVATORE Moreno [address] | | | | | | [place], | | | | | | [place] [address] | | | | | | [phone] | | | | | | | [...] HOURS PRN, Pain, Starting | | | [facility] 12/03/23 at 1529, | | | Post-op/Phase II | | + +---+ | | | + +---+ | albuterol 2.5 mg/3 mL nebulizer | | | solution 2.5 mg 2.5 mg, | | | Nebulization, ONCE PRN, Wheezing, | | | Starting [facility] 12 at 1516, | | | [...] | | Site | | PRN, Starting [facility] 09/10/18 at | | PM PST [...] glucose < 50, | | | Starting [facility] 09/10/18 at 1244, | | | [...] | | | | First dose on [facility] 09/10/18 at | | | | [...] Intravenous, PRN, Shivering, | | | Starting [facility] 09/10/18 at 1516, For | | | 2 doses, May Repeat once in 5 | | | min., Recovery/Phase I | | + +---+ | | | + +---+ | midazolam (VERSED) 1 mg/mL | | | injection 0.5-2 mg 0.5-2 mg, | | | Intravenous, EVERY 5 MIN PRN, | | | Anxiety, or agitation, Starting | | | [facility] 09/10/18 at 1516, Maximum | | | total dose 2 mg., Recovery/Phase | | | I | | + +---+ | | | + +---+ + +-------+ +--------+---+ + | moxifloxacin (VIGAMOX) 0.5 % | Given | 09/10/20 | 0.5 mg | | Eye-Righ | | intracameral injection PRN, | | 18 2:51 | | | t | | Starting [facility] 09/10/18 at 1451, | | PM PST | | | | | Intra-op | | | | | | + +-------+ +--------+---+ + + +---+ | | | + +---+ | ondansetron (ZOFRAN) injection | | | 4 mg 4 mg, Intravenous, ONCE | | | PRN, Nausea, Starting [facility] 09/10/18 | | | at 1516, [...] | | | | | | Starting [facility] 09/10/18 at 1244, For | | [...] | | | | | | | [facility] 09/10/18 at 1244, For 3 | [...] | | Site | | PRN, Starting [facility] 09/10/18 at | | PM PST [...] | | | | | | | [facility] 09/10/18 at 1244, For 3 | [...]
--- OUTSIDE RECORDS SUMMARY | ~2019-08-21 | XMS | Encounter Summary ---
Demographics + + + | Address | [address] | | | [place] [address] | + + + | Home Phone [...] | Author | [facility] | | | and Ankitana | + + + | Organization | [facility] | [...] Team Providers + +------+ + | Care Hospitalist Medical Director Name | Role | Phone [...] | | CARDIOLOGY [address] | Tiffanie SERVICE PLUMBER [address] | | | | | [place], | [place], | | | | | [place] [address] | [place] [address] | | | | | [phone] | [phone] | | | | | | | [...] | | | | | [place] [address] | | | | | | [phone] | | | | | | | | +--------+---------+ + + + | 10/28/ | Office | Cardiology | [place], | | | 2019 | Visit | | SALVATORE Moreno [address] | | | | | | [place], | | | | | | [place] [address] | | | | | | [phone] | | | | | | | [...]
--- OUTSIDE RECORDS SUMMARY | ~2019-08-21 | XMS | Encounter Summary ---
Demographics + + + | Address | [address] | | | [place] [address] | + + + | Home Phone [...] Author | [facility] | | | and Ankitana | + + + | Organization | [facility] [...] Team Providers + +------+ + | Care Gunner'S Mate G Name | Role | Phone | + [...] Question | | 2018 | | CARDIOLOGY [facility] | [address] | | | | | [address] | [address] [place], | | | | | [address] | [place] [address] | | | | | [address] | [phone] | | | | | [phone] | | | +--------+ + + + [...] | | | | | [place] [address] | | | | | | [phone] | | | | | | | | +--------+---------+ + + + | 10/28/ | Office | Cardiology | [place], | | | 2019 | Visit | | SALVATORE Moreno [address] | | | | | | [place], | | | | | | [place] [address] | | | | | | [phone] | | | | | | | | +--------+---------+ + + + documented as of this encounter Visit Diagnoses Not on filedocumented in this encounter"
--- OUTSIDE RECORDS SUMMARY | ~2019-08-21 | XMS | Clinical Summary ---
Demographics + + + | Address | [address] | | | [place] [address] | + + + | Home Phone [...] | Author | [facility] | | | and Ankitana | + + + | Organization | [facility] [...] Providers + +------+ + | Care Barrel Turner Name | Role | Phone | + [...] and | | lateral castillo from prior [place], mild destinee infarct ischemia. LARGE | | SEVERE inferior and Lateral [place]. 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 Non STEMI | | June [...] + + + + + | H/O [place] (myocardial infarction) | 10/06/2011 | + + + + + | Overview: Large Inferior posterior [place] March 2012. | | Non STEMI June [...] | | | | | [place] [address] | | | | | | [phone] | | | | | | | | +--------+---------+ + + + | 10/28/ | Office | Cardiology | Carol, | | | 2019 | Visit | | SALVATORE Moreno [address] | | | | | | [place], | | | | | | [place] [address] | | | | | | [phone] | | | | | | | [...] | | 09/16/ | AMGM-S | | [id number]: Qty: 2 | c | | BIOMEDICAL | | 2020 | D / / | | on 06/11/2018 by Eleanor, | | | - JALEN | | | | | Hemanth Cooper MD at [facility] | | | | | | | | [facility] | | | | | | | + +--------+--------+ +--------+--------+--------+ | Lens Tecnis Preloaded Pcb 8.5 | Generi | Left: | MORENO | | 04/24/ | [id number] | | - [id number]: Qty: | c | Eye | MEDICAL | | 2018 | 0085 | | 1 on 08/13/2018 by Jose Manuel, | | | OPTICS - | | | /[id number] | | Seamus Chance MD at [facility] | | | [place] | | | [phone] | | [facility] | | | | | | / | | CENTER | | | | | | | + +--------+--------+ +--------+--------+--------+ | Lens Tecnis Preloaded Pcb 8.5 | Generi | Right: | MORENO | | 01/31/ | [id number] | | - [id number]: Qty: | c | Eye | MEDICAL | | 2018 | 0085 | | 1 on 09/10/2018 by Jose Manuel, | | | OPTICS - | | | /[id number] | | Seamus Chance MD at [facility] | | | [place] | | | [address] | | [facility] | | | | | | [...] +--------+ +---------+--------+ | MEDICARE | MEDICA | [id number] | | [phone] | | Medica | | | RE | | 012-Pr | 5 | | re | | | PART A | | esent | | | | | | AND B | | | | | | + +--------+ +--------+ +---------+--------+ | [employer]AN | MODA | [id number] | 01/05/20 | [phone] | | Medica | | MEDICAID HMO | HEALTH | | 19-Pre | 1 | | id | | | MDCD | | sent | | | | | | HMO OR | | | | | | + +--------+ +--------+ +---------+--------+ | DEPARTMENT OF | NAPHCA | [id number] | 06/06/20 | | | Indemn | [...] | Self | [birth year] | | [address] | | | al/Fam | | 1955 | [phone] | [place] [address] | | | daljit | | | 6 (Home) | | + +--------+ +--------+ + + | [place] | 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/ | | [address] | | | ate | | 1902 | [phone] | [place] [address] | | | | | | 9 (Home) | | + +--------+ +--------+ + + Advance Directives + + + + + | Type | Date Recorded | Patient | Explanation | | | | Diver Pumper | | + + + + + | Power of | | | | | [employer] Radio Operator | | | | + + + [...]
--- OUTSIDE RECORDS SUMMARY | ~2019-08-21 | XMS | Encounter Summary ---
Demographics + + + | Address | [address] | | | [place] [address] | + + + | Home Phone [...] + | Author | [facility] | | | and Ankitana | + + + | Organization | [facility] | [...] Team Providers + +------+ + | Care Exhibition Carver Name | Role | Phone | + [...] | | | [place] | [address] | [address] | | | | | CABG | CONF[place]ATED | [place]ani [place], | | | | | Procedures | WAY | [place] | | | | | ASSISTANT FRONT OFFICE MANAGER - NO YH | [place], | [address] | | | | | COVERAGE | [place] [address] | Phone: | | | | | EXCEPT IN | Phone: | [phone] | | | | | [facility]IR CL[facility] | [phone] | Fax: | | | | | | Fax: | [phone] | | | | | | [phone] | | +--------+--------+ + + + + Encounter Details +--------+---------+ + + + | Date | Type | Department | Care Team | Description | +--------+---------+ + + + | 10/01/ | Office | [facility] [place] | Mariangel Siddiqi, | Chest pain syndrome | | 2018 | Visit | CARDIOLOGY [address] | [address] | (Primary Dx); ASHD | | | | [place], | [place], | (arteriosclerotic | | | | [place] [address] | [place] [address] | heart disease); | | | | [phone] | [phone] | Mixed hyperlipidemia | | | | [...] arrest when she was at home in [facility]. Her daughter found her and called the naturopathic oncology provider. It took them about ten mintues for her to revive. She was doing prett y well between 2011 until recent when she went to [facility] in [place] on 06/08/18 because she was not feeling [...] chronic, stage II (GFR 60-89 ml/min) H/O [place] (myocardial infarction) Hepatitis C Risk factors for obstructive sleep apnea Cardiac arrest with ventricular fibrillation MEDICAL, SURGICAL, AND PERSONAL HISTORY Past Surgical History: Procedure Laterality Date CARDIAC CATHERIZATION 05/11/2012 intra-aortic balloon pump placement, 05/11/12 CARDIAC CATHERIZATION Right 06/09/2018 Procedure: CV Cor Angio; Surgeon: Shad Schuler MD; Location: [facility] CV LAB CARDIAC CATHERIZATION Right 06/09/2018 Procedure: CV LHC; Surgeon: Shad Schuler MD; Location: [facility] CV LAB CARDIAC CATHERIZATION Right 06/09/2018 Procedure: CV LV; Surgeon: Shad Schuler MD; Location: [facility] CV LAB CATARACT REMOVAL Left 08/13/2018 [...] Hemanth Webster MD; Loc ation: [facility] MAIN OR HYSTERECTOMY 1995 Family History [...] She lives with her daughter, Miriam, in [place]. She is on disability. She is a [...] post unknown stenting in [address] [facility] in [place] B. Echocardiogram 2D , M-mode, Doppler [...] i nferior and lateral castillo from prior [place], mild destinee infarct ischemia. LARGE SEVERE inferior a nd Lateral [place]. By hSad Schuler MD G. 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 There is no [...] edited this note. China De La Cruz, Chief Scientific Officer 10/01/2018 I, Mariangel Siddiqi MD, personally performed the services described in this documentation, as scribed in my presence and it is both accurate and complete. China De La Cruz Chief Scientific Officer 10:48 Electronically signed by: Mariangel Siddiqi MD [facility] 10/01/2018 Portions of this chart may have been created with Fuze voice recognition software. Occasi onal wrong-word or [...] | | | | | [place] [address] | | | | | | [phone] | | | | | | | | +--------+---------+ + + + | 10/28/ | Office | Cardiology | Carol, | | | 2019 | Visit | | SALVATORE Moreno [address] | | | | | | [place], | | | | | | [place] [address] | | | | | | [phone] | | | | | | | [...] MD | | | | | | ([id number]) on 10/01/2018 | | | | | [...] of unspecified type of | | vessel, chickahominy indians-eastern division or graft | + + | Mixed hyperlipidemia | + + documented in this encounter
--- OUTSIDE RECORDS SUMMARY | ~2019-08-21 | XMS | Encounter Summary ---
Demographics + + + | Address | [address] | | | [place] [address] | + + + | Home Phone [...] | [facility] | | | and Ankitana | + + + | Organization | [facility] | [...] Team Providers + +------+ + | Care Racing Driver Name | Role | Phone | + +------+ + | Yolanda Lee | PCP | | + +------+ + Encounter Details +--------+ + + + + | Date | Type | Department | Care Team | Description | +--------+ + + + + | 03/05/ | Hospital | [facility] | Jesse Siddiqi MD | Cellulitis and | | 2015 | Encounter | [facility] | [address], | abscess of hand, | | | | CARDIAC MEDICAL [address] | [address] floor [place], | except fingers and | | | | [address] [place], | [place] [address] | thumb; Bacteremia | | | | [place] [address] | [phone] | due to Streptococcus | | | | [phone] | | / Sepsis | +--------+ + [...] | | | | | [place] [address] | | | | | | [phone] | | | | | | | | +--------+---------+ + + + | 10/28/ | Office | Cardiology | Carol, | | | 2019 | Visit | | SALVATORE Moreno [address] | | | | | | [place], | | | | | | [place] [address] | | | | | | [phone] | | | | | | | [...]
--- OUTSIDE RECORDS SUMMARY | ~2019-08-21 | XMS | Encounter Summary ---
Demographics + + + | Address | [address] | | | [place] [address] | + + + | Home Phone [...] | Author | [facility] | | | and Ankitana | + + + | Organization | [facility] | [...] | + + +---------+ + | Becky Crzu | ECON | Unknown | | + + +---------+ + Care Team Providers + +------+ + | Care Airplane Engineer Name | Role | Phone | [...] [address] | | | | [address] | [facility] | | | | | [facility] | [place] [address] | | | | | [place] | [phone] | | | | | [address] | | | | | | [phone] | | | +--------+ + + + [...] | | | | | [place] [address] | | | | | | [phone] | | | | | | | | +--------+---------+ + + + | 10/28/ | Office | Cardiology | Carol, | | | 2019 | Visit | | SALVATORE Moreno [address] | | | | | | [place], | | | | | | [place] [address] | | | | | | [phone] | | | | | | | | +--------+---------+ + + + documented as of this encounter Visit Diagnoses Not on filedocumented in this encounter"
--- OUTSIDE RECORDS SUMMARY | ~2019-08-21 | XMS | Encounter Summary ---
Demographics + + + | Address | [address] | | | [place] [address] | + + + | Home Phone [...] Author | [facility] | | | and Ankitana | + + + | Organization | [facility] | [...] Providers + +------+ + | Care Sales Support Consultant Name | Role | Phone | + +------+ + PCP | Unavailable | + +------+ + Encounter Details +--------+ + + + + | Date | Type | Department | Care Team | Description | +--------+ + + + + | 03/24/ | Hospital | [facility] | ED, PHYSICIAN | | | 2012 - | Encounter | [facility] | Estephanie Roy, | | | | | MEDICAL [address] | MD [address] | | | 03/26/ | | [place], [place] | [address] [place], [place] | | | 2012 | | [address] | [address] | | | | | [phone] | | | | | | | RuthElizabeth, | | | | | | MD [address] | | | | | | [place] | | | | | | [place] [address] | | | | | | [phone] | | | | | | | [...] 1955 ADMISSION DATE: 03/24/2013 DISCHARGE DATE: 03/26/2013 [id number] / [id number] DISCHARGE DIAGNOSES: 1. Abdominal pain. 2. Nausea [...] p.o. at bedtime. ANNE MARIE PICHARDO ADM:03/24/13 [id number] 03/26/13 DIS Jack DISCHARGE SUMMARY [id number] [facility] Jesse Siddiqi MD,PhD [facility] THIS REPORT IS CONFIDENTIAL AND NOT TO BE RELEASED WITHOUT PROPER AUTHORIZATION. [facility] FOLLOWUP: Continue primary care through the [facility]. Office visit is schedu led for 04/02/2013 at 2 p.m. Discharge time was 38 minutes. Jesse Siddiqi MD,PhD P P TDC/sxs #[id number] cc: Jesse Siddiqi MD,PhD Electronically Signed 05/19/13 1556 Jesse Siddiqi MD,PhD ANNE MARIE PICHARDO ADM:03/24/13 [id number] 03/26/13 DIS Jack DISCHARGE SUMMARY [id number] [facility] Jesse Siddiqi MD,PhD [facility] [...] pain assoc with opiate withdrawal while in prison. * HTN- controlled. * CAD- stable * Disposition- plan for home tomorrow CC: //ivnm// Electronically Signed By: Jesse Siddiqi MD,PhD 03/25/13 1516 ANNE MARIE PICHARDO ADM:03/24/13 [id number] ADM Jack PROGRESS NOTE [id number] P [facility] Jesse Siddiqi MD,PhD E-Sign: [facility] THIS REPORT IS CONFIDENTIAL AND NOT TO [...] | | | | | [place] [address] | | | | | | [phone] | | | | | | | | +--------+---------+ + + + | 10/28/ | Office | Cardiology | Carol, | | | 2019 | Visit | | SALVATORE Moreno [address] | | | | | | [place] | | | | | | [place] [address] | | | | | | [phone] | | | | | | | [...] + + | Performing | Address | City/State/[facility] | Phone Number | | Organization | | | | + + + + + | [facility] | [address] | [place] [address] | | | [facility] | [...] + | [facility] | [address] | [place] [address] | | | [facility] | [...] + | [facility] | [address] | [place] [address] | | | [facility] | | | | | [...] - 1.030 | [facility] | | | [place] | | | [facility] | | | [...] + + | [facility] | [address] | [place] [address] | | | [facility] | | | | | [...] SACR[facility]O | [address] | [place] [address] | | | [facility] | | | | | [...] [facility] [address] | [place] [address] | | | [facility] | [...] + | [facility] | [address] | [place] [address] | | | [facility] | [...] + + | Glucose | 146 (H)Comment: Tuvaluan | 65 - 99 mg/dL | [facility] [...] + | [facility] | [address] | [place] [address] | | | [facility] | [...] + | [facility] | [address] | [place] [address] | | | [facility] | [...] + | [facility] | [address] | [place] [address] | | | [facility] | [...] + + | [facility] | [address] | [place] [address] | | | [facility] | | | | | LABORATORY | | | | + + + + + XR Abdomen 2 VW (03/24/2013 12:30 PM PDT) + + | Specimen | + + | | + + + + + | Narrative | Performed At | + + + | Exam Performed Location: [facility] [place] ABDOMEN | MISCELANIOUS | | TWO VIEWS [...] free air. | | | S: SQ ([id number]) Signed by: ADELA TAMEZ MD | | + + + + + | Procedure Note | + + | Tim, Rad Conversion - 07/28/2013 8:28 PM PDT Exam Performed Location: [facility] | | at [facility] TWO VIEWSCLINICAL INFORMATION:Central abdominal pain since 0600 [...] forobstruction or free air.S: | | SQ ([id number]) Signed by: ADELA TAMEZ MD | | [...] | | | | | |S: SQ ([id number]) Signed by: ADELA TAMEZ MD | + + + +---------+ + + | Performing | Address | City/State/Zipcode | Phone Number | | Organization | | | | + +---------+ + + | MISCELLANEOUS LAB | | | [phone] | + +---------+ + + | MISCELANIOUS LAB | | | [phone] | + +---------+ + + Type and [...] [address] | [place] [address] | | | [facility] | | | | | [...] + + | Glucose | 149 (H)Comment: Tuvaluan | 65 - 99 mg/dL | [facility] | | | | Diabetes Association | [...] SACRED | [address] | [place] [address] | | | [facility] | [...] [address] | [place] [address] | | | [facility] | [...] + | [facility] | [address] | [place] [address] | | | [facility] | | | | | [...] CARDONA | [address] | [place] [address] | | | [facility] | | | | | LABORATORY | | | | + + + + + documented in this encounter Visit Diagnoses Not on filedocumented in this encounter"
--- OUTSIDE RECORDS SUMMARY | ~2019-08-21 | XMS | Encounter Summary ---
Demographics + + + | Address | [address] | | | [place] [address] | + + + | Home Phone [...] | Author | [facility] | | | and Ankitana | + + + | Organization | [facility] | | [...] Team Providers + +------+ + | Care Plywood Factory Worker Name | Role | Phone | + +------+ + | Yolanda Lee | PCP | | + +------+ + Encounter Details +--------+ + + + + | Date | Type | Department | Care Team | Description | +--------+ + + + + | 03/01/ | Hospital | [facility] | Jesse Siddiqi MD | Cellulitis and | | 2015 | Encounter | HEART MED CTR OP | [address], | abscess of hand, | | | | INFUSION [address] | 9th floor [place], | except fingers and | | | | [address] [place], [place] | [place] [address] | thumb; Bacteremia | | | | [address] | [phone] | due to Streptococcus | | | | [phone] | | / Sepsis | +--------+ + [...] | | | | | [place] [address] | | | | | | [phone] | | | | | | | | +--------+---------+ + + + | 10/28/ | Office | Cardiology | Carol, | | | 2019 | Visit | | SALVATORE Moreno [address] | | | | | | [place] | | | | | | [place] [address] | | | | | | [phone] | | | | | | | [...]
--- OUTSIDE RECORDS SUMMARY | ~2019-08-21 | XMS | Encounter Summary ---
Demographics + + + | Address | [address] | | | [place] [address] | + + + | Home Phone [...] Author | [facility] | | | and Ankitana | + + + | Organization | [facility] | | | and [...] Team Providers + +------+ + | Care Convention Planner Name | Role | Phone | [...] | SR | | | | | [phone] | | | +--------+ + + + [...] | | | | | [place] [address] | | | | | | [phone] | | | | | | | | +--------+---------+ + + + | 10/28/ | Office | Cardiology | Carol, | | | 2020 | Visit | | SALVATORE Moreno [address] | | | | | | [place], | | | | | | [place] [address] | | | | | | [phone] | | | | | | | | +--------+---------+ + + + documented as of this encounter Visit Diagnoses Not on filedocumented in this encounter
--- OUTSIDE RECORDS SUMMARY | ~2019-08-21 | XMS | Encounter Summary ---
Demographics + + + | Address | [address] | | | [place] [address] | + + + | Home Phone [...] | Author | [facility] | | | and Ankitana | + + + | Organization | [facility] | | | and Ankitana [...] Providers + +------+ + | Care Environmental Law Professor Name | Role | Phone [...] | | | CENTER [address] | [place], [place] | | | | | [place] | [address] | | | | | [place] | | | | | | [address] | | | | | | [phone] | | | +--------+ + + + [...] | | | | | [place] [address] | | | | | | [phone] | | | | | | | | +--------+---------+ + + + | 10/28/ | Office | Cardiology | Carol, | | | 2019 | Visit | | SALVATORE Moreno [address] | | | | | | [place], | | | | | | [place] [address] | | | | | | [phone] | | | | | | | | +--------+---------+ + + + documented as of this encounter Visit Diagnoses Not on filedocumented in this encounter"
--- OUTSIDE RECORDS SUMMARY | ~2019-08-21 | XMS | Encounter Summary ---
Demographics + + + | Address | [address] | | | [place] [address] | + + + | Home Phone [...] Author | [facility] | | | and Ankitana | + + + | Organization | [facility] | [...] Team Providers + +------+ + | Care Industrial Registered Nurse Name | Role | Phone [...] + + | 04/22/ | Office | [facility] | Carol, | Hypertension, | | 2019 | Visit | CARDIOLOGY [address] | SALVATORE Moreno [address] | unspecified type | | | | [place], | [place], | (Primary Dx); | | | | [place] [address] | [place] [address] | Ischemic | | | | [phone] | [phone] | cardiomyopathy; ASHD | | | | [...] encounter Patient Instructions Patient Instructions Alla Manjarrez, Personal Banker - 04/22/2019 11:30 AM PDT1. The cur [...] chronic, stage II (GFR 60-89 ml/min) H/O [place] (myocardial infarction) Hepatitis C Risk factors for [...] Abnormal ECG Confirmed by MARIANGEL WALTON MD ([id number]) on 10/01/2018 12:13:49 PM LAB RESULTS reviewed during visit today primarily from [facility]: LIPID No results found for: CHOL, [...] 05/16/2012 RESULTS- I reviewed reports from [facility]: Above data and testing is reviewed this visit; testing below is historical data unless othe rwise specified. ASSESSMENT: 1. Coronary artery disease with ischemic cardiomyopathy A. History cardiac arrest post unknown stenting in 2011 at [facility] in [place] B. Echocardiogram 2D , M-mode, Doppler and [...] the inferior and lateral castillo from prior [place], mild destinee infarct ischemia. LARGE SEVERE inferior and Lateral [place]. By Shad Schuler MD G. Left heart cath on 06/09/18 shows, severely calcified coronaries w ith severe three-vessel CAD including 60% distal left main, 90% ostial circumflex, 99% proxi mal circumflex, obtuse marginal 4 and 5 disease, ostial and proximal 40% LAD, 95% ostial sep eleni life insurance specialist, 70% mid and distal LAD, 100% [...] function. Trace TR, pulmonic valve normal Trace [place], visible portions of ascendin g aorta and [...] no limitations of act ivities of the [place] Heart Association functional class. Heart failure stage [...] visit, or sooner with concerns. Alla Tuttle, Personal Banker am acting as a scribe on behalf of, and in the presenc e of [place]. - Alla Manjarrez Personal Banker 04/22/2019 11:40 Tiffanie Tuttle ARNP, personally performed the services described in this documentati on, as scribed in my presence and it is both accurate and complete. -[place] 04/22/2019 Portions of this chart may have been created with [employer] voice recognition software. Occasi onal wrong-word [...] | | | | | | [place] [address] | | | | | | [phone] | | | | | | | | +--------+---------+ + + + | 10/28/ | Office | Cardiology | Carol, | | | 2019 | Visit | | SALVATORE Moreno [address] | | | | | | [place], | | | | | | [place] [address] | | | | | | [phone] | | | | | | | | +--------+---------+ + + + documented as of this encounter Visit Diagnoses + + | Diagnosis | + + | Hypertension, unspecified type - Primary | + + | Ischemic cardiomyopathy Other specified forms of chronic ischemic heart disease | + + | ASHD (arteriosclerotic heart disease) Coronary atherosclerosis of unspecified type of | | vessel, grayling or graft | + + | Chest pain syndrome Chest pain, unspecified | + + | Cardiac LV ejection fraction 30-35% Other symptoms involving cardiovascular system | + + | Cardiac arrest with ventricular fibrillation (HCC) | + + | Mixed hyperlipidemia | + + documented in this encounter
--- OUTSIDE RECORDS SUMMARY | ~2019-08-21 | XMS | Encounter Summary ---
Demographics + + + | Address | [address] | | | [place] [address] | + + + | Home Phone [...] | [facility] | | | and Ankitana | + + + | Organization | [facility] | [...] + +------+ + | Care Media Sales Executive Name | Role | Phone | [...] | [address] | [place] [address] | (Primary Dx); | | | | [place] | [phone] | Abscess of left | | | | [address] | | upper arm and | | | | [phone] | Sheryl Cunha, | forearm | | | | | FORM PRESS OPERATOR [address] | | | | | | [place] | | | | | | [address] | | | | | | | [...] | | | | | [place] [address] | | | | | | [phone] | | | | | | | | +--------+---------+ + + + | 10/28/ | Office | Cardiology | Carol, | | | 2019 | Visit | | SALVATORE Moreno [address] | | | | | | [place] | | | | | | [place] [address] | | | | | | [phone] | | | | | | | [...] + + | YARELISDEMIKarly BRENDAN | [address] | [place] [address] | | | [facility] | | [...] SACRED | [address] | [place] [address] | | | [facility] | | | | | LABORATORY [...] + + + | Glucose | 94Comment: [place] | 65 - 99 mg/dL | [facility] [...] + + | [facility] | [address] | [place] [address] | | | [facility] | | | | | LABORATORY [...] | ---- 05/25/2015 | | | 14:26 [facility] Emergency -3 | | | Cellulitis 02/22/2015 07:09 [facility] | | | Emergency -Urinary tract infection, [...] ------ --------- 4 | | | 0 [facility] 3 | | | 0 [facility] 7 | | | 0 Total Note: Visits indicate total | | | known visits. [place] Dx are the number of primary diagnoses on | | | the [facility]'s non-emergent dx list. | | | | | | --- | | | | | | --- Care Guidelines exist for the following facilities: [facility] | | | [facility] ( 09/07/2013 ) [place] Prescription Review PDMP | | | Report [...]
--- OUTSIDE RECORDS SUMMARY | ~2019-08-21 | XMS | Encounter Summary ---
Demographics + + + | Address | [address] | | | [place] [address] | + + + | Home Phone [...] Author | [facility] | | | and Ankitana | + + + | Organization | [facility] | | | [...] Providers + +------+ + | Care Strap Making Machine Operator Name | Role | Phone | + +------+ + | Yolanda Lee | PCP | | + +------+ + Encounter Details +--------+ + + + + | Date | Type | Department | Care Team | Description | +--------+ + + + + | 02/26/ | Hospital | [facility] | Jesse Siddiqi MD | Cellulitis and | | 2015 | Encounter | [facility] | [address], | abscess of hand, | | | | ORTHOPEDICS [address] | [address] floor [place], | except fingers and | | | | [address] [place], [place] | [place] [address] | thumb; Bacteremia | | | | [address] | [phone] | due to Streptococcus | | | | [phone] | | / Sepsis | +--------+ + [...] | | | | | [place] [address] | | | | | | [phone] | | | | | | | | +--------+---------+ + + + | 10/28/ | Office | Cardiology | Carol, | | | 2019 | Visit | | SALVATORE Moreno [address] | | | | | | [place] | | | | | | [place] [address] | | | | | | [phone] | | | | | | | [...]
--- OUTSIDE RECORDS SUMMARY | ~2019-08-21 | XMS | Encounter Summary ---
Demographics + + + | Address | [address] | | | [place] [address] | + + + | Home Phone [...] | Author | [facility] | | | and Ankitana | + + + | Organization | [facility] | | | and [...] Team Providers + +------+ + | Care Bit Tapper Name | Role | Phone | + [...] | | | CENTER [address] | [place], [place] | | | | | [address] | [address] | | | | | [place] | | | | | | [address] | | | | | | [phone] | | | +--------+ + + + [...] | | | | | [place] [address] | | | | | | [phone] | | | | | | | | +--------+---------+ + + + | 10/28/ | Office | Cardiology | Carol, | | | 2019 | Visit | | SALVATORE Moreno [address] | | | | | | [place], | | | | | | [place] [address] | | | | | | [phone] | | | | | | | | +--------+---------+ + + + documented as of this encounter Visit Diagnoses Not on filedocumented in this encounter"
--- OUTSIDE RECORDS SUMMARY | 2019-08-21 09:02 | XMS ---
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 GIL Security Store Detective Events No recent Security Events currently on file CRITERIA MET - [facility] - PDMP CARE PROVIDERS EMILY CONDON [facility] 07/28/2018-Current PHONE: Unknown MELODIE SILVA Nurse Practitioner 04/06/2019-Current PHONE: [phone] NON ESTABLISHED Primary Care Current PHONE: [phone] Care Guidelines exist for the following facilities: [facility] ( 02/16/2018 ) [facility] ( 03/06/2015 ) Care History Substance Use/Overdose 12/28/2018 [facility] - HX OF IV DRUG USAGE- PLEASE BE ADVISED - USE EXTREME CAUTION IN GIVING NARCOTICS TO THIS PATIENT. - Avoid Discharge Narcotic prescriptions if at all possible. Physician Discretion. 09/25/2015 [facility] Noted hx of IV drug use - denies any recent use as of September 2015. Infection/Chronic 09/25/2015 [facility] History of MRSA. Most recent positive culture of hand abscess 09/19/15. Medical/Surgical 04/06/2019 [facility] - PATIENT HAS NOT SEEN PCP SINCE 01/12/19. - PLEASE ADVISE PATIENT OF FOLLOW UP WITH PCP. - PATIENT WAS REFERRED TO CARDIAC REHAB IN THE PAST. 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 03/31/2019 [facility] \T\middot;\T\nbsp; PATIENT IS A [employer] MEMBER. \T\middot;\T\nbsp; PLEASE REFER PATIENT TO [facility] FOR NON EMERGENT MEDICAL NEEDS. \T\middot;\ T\nbsp; [facility] CAN SEE PATIENTS SAME DAY FOR APTS IF PATIENT CALLS FIRST THING IN THE MORNING. 07/06/2018 [facility] - [facility]/06/18 @ 10:00AM. - [facility] IS WAITING ON [place] DEE-NI' INCOME VERIFICATION FROM PATIENT IN ORDER TO HELP PATIENT WITH MEDICAID BENEFITS IN THE STATE OF [place], PATIENT IS AWARE OF THIS VERIFICATION NEEDED BUT HAS STATED THAT INCOME VERIFICATION SHOULD BE EXEMPT DUE TO LAND PLANE SETTLEMENT. E.D. VISIT COUNT (12 MO.) 6 [facility] TOTAL 6 NOTE: Visits indicate total known visits. 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 of aspirin - Nicotine dependence, cigarettes, uncomplicated - Essential (primary) hypertension 03/30/2019 15:14 [facility] [place] TYPE: Emergency COMPLAINT: - VOMITING,ABD PAIN DIAGNOSES: - Left lower quadrant pain - Nicotine dependence, unspecified, uncomplicated - Presence of coronary angioplasty implant and graft - Presence of aortocoronary bypass graft - Other half-way (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 - longterm (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 of aspirin - Essential (primary) hypertension - Acquired absence of both cervix and uterus 12/31/2018 11:52 [facility] [place] TYPE: Emergency COMPLAINT: - VOMITING DIAGNOSES: - Gastro-esophageal reflux disease without esophagitis - Dvtrcli of intest, part unsp, w/o perf or abscess w/o bleed - Acquired absence of both cervix and uterus - Athscl heart disease of [place] coronary artery w/o ang pctrs - Essential (primary) hypertension - Other half-way (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 - Ischemic cardiomyopathy - Lower abdominal pain, unspecified - Presence of aortocoronary bypass graft - longterm (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 of aspirin - Presence of coronary angioplasty implant and graft 12/26/2018 22:01 [facility] [place] TYPE: Emergency COMPLAINT: - VOMITTING/ABD PAIN DIAGNOSES: - Ischemic cardiomyopathy - Nicotine dependence, unspecified, uncomplicated - 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
[2019-08-21] MEDS ORDERED: ULTRAM50 MG PO (12:32)
== END 2019-08-21 13:11 | disposition home or self-care (01) ==
LOC: ED 08:58
DX: R10.9 Unspecified abdominal pain (principal); G89.29 Other chronic pain; R11.2 Nausea with vomiting, unspecified; I10 Essential (primary) hypertension; F17.200 Nicotine dependence, unspecified, uncomplicated; Z79.899 Other long term (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; Z79.891 Long term (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 of opiate analgesic; Z79.82 Long term (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 of aspirin
CPT/HCPCS: 74177; 80053; 83690; 85025; 99284-25; 99406; C9113; J1200; J1790; J1885; J2405; Q9967

== ENCOUNTER 2019-09-08 17:37 | Emergency (ER) | payer MEDICARE, OTHER ==
[~2019-09-08] VITALS: Ht 172.7 cm; Wt 77.1 kg
--- OUTSIDE RECORDS SUMMARY | ~2019-09-08 | XMS | Encounter Summary ---
Demographics + + + | Address | [address] | | | [place] [address] | + + + | Home Phone | | + + + | Preferred Language | Unknown | + + + | Marital Status | | + + + | Mormon Affiliation | 1041 | + + + | Race | Unknown | + + + | Ethnic Group | Unknown | + + + Author + + + | Author | [facility] | | | and Ankitana | + + + | Organization | [facility] | | | and Ankitana | [...] Team Providers + +------+ + | Care Powerhouse Helper Name | Role | Phone | + +------+ + PCP | Unavailable | + +------+ + Encounter Details +--------+ + + + + | Date | Type | Department | Care Team | Description | +--------+ + + + + | 08/14/ | Hospital | [facility] | Fantasma Jennings | | | 2007 | Encounter | FAMILY EMERGENCY | MD [address] | | | | | [address] | [facility] | | | | | [facility] | [place] [address] | | | | | [place] | [phone] | | | | | [address] | | | | | | [phone] | | | +--------+ + + + [...] Description | +--------+---------+ + + + | 10/28/ | Office | Cardiology | Carol, | | | 2020 | Visit | | SALVATORE Moreno [address] | | | | | | [place], | | | | | | [place] [address] | | | | | | [phone] | | | | | | | | +--------+---------+ + + + documented as of this encounter Procedures + +--------+ + + + | Procedure Name | Priori | Date/Time | Associated Diagnosis | Comments | | | ty | | | | + +--------+ + + + | HISTORICAL IMAGING | | 08/14/2008 | | Results for this | | RESULT | | 11:02 AM | | procedure are in the | | | | PST | | results section. | + +--------+ + + + documented in this encounter Results Historical Imaging Result (08/14/2008 11:02 AM PST) + + | Specimen | + + | | + + + + + | Narrative | Performed At | + + + | Exam Performed Location: [facility] | MISCELANIOUS | | TWO-VIEW CHEST X-RAY CLINICAL INFORMATION: Upper respiratory | LAB | | infection and fever COMPARISON: Chest x-ray 11/25/2003. | | | FINDINGS: The soft tissues and bones of the chest wall have a normal | | | appearance. The heart size and contour are normal. The aorta is | | | slightly tortuous but not enlarged. Mediastinal or hilar masses are | | | not observed. There is a small linear opacity in the left lower lung | | | zone consistent with subsegmental atelectasis or parenchymal | | | scarring. Pulmonary infiltrates, pleural effusions, or lung nodules | | | are not observed. IMPRESSION: Minor atelectasis or parenchymal | | | scarring in the left lung. Other cardiopulmonary abnormalities are | | | not observed. | | + + + + + | Procedure Note | + + | Tim, Rad Conversion - 07/31/2013 11:20 AM PDT Exam [facility]formed [facility] INFORMATION:Upper respiratory | | infection and feverCOMPARISON:Chest x-ray 11/25/2003.FINDINGS:The soft tissues and bones | | of the chest wall have a normal appearance.The heart size and contour are normal. The | | aorta is slightly tortuousbut not enlarged. Mediastinal or hilar masses are not | | observed.There is a small linear opacity in the left lower lung zone consistentwith | | subsegmental atelectasis or parenchymal scarring. Pulmonaryinfiltrates, pleural | | effusions, or lung nodules are not observed.IMPRESSION:Minor atelectasis or parenchymal | | scarring in the left lung. Othercardiopulmonary abnormalities are not observed. | | | |FINDINGS: | |The soft tissues and bones of the chest wall have a normal appearance. | |The heart size and contour are normal. The aorta is slightly tortuous | |but not enlarged. Mediastinal or hilar masses are not observed. | |There is a small linear opacity in the left lower lung zone consistent | |with subsegmental atelectasis or parenchymal scarring. Pulmonary | |infiltrates, pleural effusions, or lung nodules are not observed. | | | |IMPRESSION: | |Minor atelectasis or parenchymal scarring in the left lung. Other | |cardiopulmonary abnormalities are not observed. | + + + +---------+ + + | Performing | Address | City/State/Zipcode | Phone Number | | Organization | | | | + +---------+ + + | MISCELLANEOUS LAB | | | [phone] | + +---------+ + + | MISCELANIOUS LAB | | | [phone] | + +---------+ + + documented in this encounter Visit Diagnoses Not on filedocumented in this encounter"
--- OUTSIDE RECORDS SUMMARY | ~2019-09-08 | XMS | Encounter Summary ---
Demographics + + + | Address | [address] | | | [place] [address] | + + + | Home Phone | | + + + | Preferred Language | Unknown | + + + | Marital Status | | + + + | Hindu Affiliation | 1041 | + + + | Race | Unknown | + + + | Ethnic Group | Unknown | + + + Author + + + | Author | [facility] | | | and Ankitana | + + + | Organization | [facility] | | | and Ankitana [...] Team Providers + +------+ + | Care Multimedia Developer Name | Role | Phone | + +------+ + PCP | Unavailable | + +------+ + Encounter Details +--------+ + + + + | Date | Type | Department | Care Team | Description | +--------+ + + + + | 05/15/ | Orders Only | [facility] | Gunnar Crow MD | | | 2008 | | [facility] MED CTR | [address] [facility] | | | | | LABORATORY [address] | [place] [address] | | | | | [address] [place] | [phone] | | | | | [address] | | | | | | [phone] | | | +--------+ + + + [...] | | 2019 | Visit | | SAVLATORE Moreno [address] | | | | | | [place], | | | | | | [place] [address] | | | | | | [phone] | | | | | | | | +--------+---------+ + + + documented as of this encounter Procedures + +--------+ + + + | Procedure Name | Priori | Date/Time | Associated Diagnosis | Comments | | | ty | | | | + +--------+ + + + | CYTOLOGY | Routin | 05/15/2009 | | Results for this | | | e | 12:00 AM | | procedure are in the | | | | PDT | | results section. | + +--------+ + + + documented in this encounter Results Cytology (05/15/2009 12:00 AM PDT) + + | Specimen | + + | | + + + + + | Narrative | Performed At | + + + | SPEC: [id number] RECD: 05/15/2009 12:19 STATUS: SOUT | [facility] | | REQ NUM: | [facility] | | BAILEY: 05/15/2009 00:[address]: Gunnar Crow ENTERED: | HOSPITAL | | 05/15/2009 12:21 SP TYPE: CYTOLOGY OT DR: TISSUES: | LABORATORY | | Elbow, NOS - RT ELBOW MASS BX CLINICAL HISTORY | | | Right elbow mass, chronic (previous biopsy 06/13) | | | CYTODIAGNOSIS BIOPSY OF RIGHT ELBOW MASS: - NEGATIVE | | | FOR MALIGNANCY. - SMALL FRAGMENT OF EPIDERMIS. - | | | FIBROUS DERMIS / SUBEPITHELIAL CONNECTIVE TISSUE. - | | | HYPERKERATOTIC SQUAMOUS EPITHELIUM COMPATIBLE WITH CYST (SEE | | | COMMENT). COMMENT: This biopsy has sampled what appears to be a | | | benign epidermal inclusion cyst (infundibular cyst). A prior biopsy | | | from this patient's right elbow soft tissue ([id number]) showed | | | similar findings. Unless removed, epidermal inclusion cysts enlarge | | | and, depending on their location, can be painful. If there is | | | clinical concern about this lesion, excisional biopsy should be | | | considered. Dictated by: Pernell Mathias GROSS | | | DESCRIPTION 10 mL clear pink fluid with 2 cores and fragments | | | Dictated by: Pernell Mathias MICROSCOPIC EXAMINATION | | | One ThinPrep and a cell block are examined. The most useful | | | information is provided in the cell block, where core fragments of | | | the biopsy are well visualized. The biopsy samples of epidermis and | | | of fragments of what appears to be a squamous lined cyst. There is no | | | evidence of atypia or malignancy. The cyst-like lining has an | | | identifiable granular layer and is hyperkeratotic. Inflammation is | | | not seen. The tissues between the recognizable epidermis and what is | | | interpreted as a cyst lining are fibrous, without adnexal structures. | | | Dictated by: Pernell Mathias | | | | | | Signed By: Unknown 05/17/2009 | | | | | | | | + + + + + + + + | Performing | Address | City/State/Zipcode | Phone Number | | Organization | | | | + + + + + | [facility] | [address] | [place] [address] | | | [facility] | | [...]
--- OUTSIDE RECORDS SUMMARY | ~2019-09-08 | XMS | Encounter Summary ---
Demographics + + + | Address | [address] | | | [place] [address] | + + + | Home Phone | | + + + | Preferred Language | Unknown | + + + | Marital Status | | + + + | Orthodox Affiliation | 1041 | + + + | Race | Unknown | + + + | Ethnic Group | Unknown | + + + Author + + + | Author | [facility] | | | and Ankitana | + + + | Organization | [facility] | | | and Ankitana [...] Team Providers + +------+ + | Care Postal Support Employee Name | Role | Phone | + +------+ + | Kiran Oneill DO | PCP | | + +------+ + Reason for Referral Diagnostic/Screening (Routine) + +--------+ + + + + | Status | Reason | Specialty | Diagnoses / | Referred By | Referred To | | | | | Procedures | Contact | Contact | + +--------+ + + + + | Authorized | | Radiology | Diagnoses | [place], | [facility] | | | | | Congestive | MD Jorge | [address] | | | | | heart | [address] | [place], | | | | | failure, | [address] | [place] | | | | | unspecified | [place], | [address] | | | | | HF | [place] [address] | Phone: | | | | | chronicity, | Phone: | [phone] | | | | | unspecified | [phone] | Fax: | | | | | heart | Fax: | [phone] | | | | | failure type | [phone] | | | | | | (HCC) | | | | | | | Procedures | | | | | | | ECHO | | | | | | | Complete FL | | | | | | | ECHO HEART | | | | | | | XTHORACIC,CO | | | | | | | MPLETE W | | | | | | | DOPPLER FL | | | | | | | ECHO HEART | | | | | | | XTHORACIC,CO | | | | | | | MPLETE, W/O | | | | | | | DOPPLER | | | + +--------+ + + + + Reason for Visit +--------+ + | Reason | Comments | +--------+ + | Other | patient needs an echo also | +--------+ + Encounter Details +--------+ + + + + | Date | Type | Department | Care Team | Description | +--------+ + + + + | 10/01/ | Telephone | [facility] | Jorge Siddiqi, | Other (patient needs | | 2018 | | CARDIOLOGY [address] | [address] [facility] | an echo also) | | | | [address] [place], | [place], | | | | | [place] [address] | [place] [address] | | | | | [phone] | [phone] | | | | | | | [...] [place], | | | | | | [place] [address] | | | | | | [phone] | | | | | | | | +--------+---------+ + + + + + +--------+ + + | Name | Type | Priori | Associated Diagnoses | Order Schedule | | | | ty | | | + + +--------+ + + | ECHO Complete | Echocardiog | Routin | Congestive heart | Expected: | | | celestina | e | failure, unspecified | 10/01/2018, Expires: | | | | | HF chronicity, | 10/01/2019 | | | | | unspecified heart | | | | | | failure type (HCC) | | + + +--------+ + + documented as of this encounter Visit Diagnoses + + | Diagnosis | + + | Congestive heart failure, unspecified HF chronicity, unspecified heart failure type | | (HCC) - Primary | + + documented in this encounter"
--- OUTSIDE RECORDS SUMMARY | ~2019-09-08 | XMS | Encounter Summary ---
Demographics + + + | Address | [address] | | | [place] [address] | + + + | Home Phone | | + + + | Preferred Language | Unknown | + + + | Marital Status | | + + + | Restorationism Affiliation | 1041 | + + + | Race | Unknown | + + + | Ethnic Group | Unknown | + + + Author + + + | Author | [facility] | | | and Ankitana | + + + | Organization | [facility] | | | and Ankitana [...] Team Providers + +------+ + | Care Loader [place] Name | Role | Phone | + +------+ + PCP | Unavailable | + +------+ + Encounter Details +--------+ + + + + | Date | Type | Department | Care Team | Description | +--------+ + + + + | 01/11/ | Hospital | [facility] | Theo Morgan MD | | | 2006 | Encounter | FAMILY EMERGENCY | [address] | | | | | [place] [address] | [place] [address] | | | | | [place] | [phone] | | | | | [place] | | | | | | [address] | | | | | | [phone] | | | +--------+ + + + [...] | | | | | | [place], | | | | | | [place] [address] | | | | | | [phone] | | | | | | | | +--------+---------+ + + + documented as of this encounter Visit Diagnoses Not on filedocumented in this encounter"
--- OUTSIDE RECORDS SUMMARY | ~2019-09-08 | XMS | Encounter Summary ---
Demographics + + + | Address | [address] | | | [place] [address] | + + + | Home Phone | | + + + | Preferred Language | Unknown | + + + | Marital Status | | + + + | Christianity Affiliation | 1041 | + + + | Race | Unknown | + + + | Ethnic Group | Unknown | + + + Author + + + | Author | [facility] | | | and Ankitana | + + + | Organization | [facility] | | | and Ankitana [...] Team Providers + +------+ + | Care Head Inspector And Center Marker Name | Role | Phone | + +------+ + PCP | Unavailable | + +------+ + Encounter Details +--------+ + + + + | Date | Type | Department | Care Team | Description | +--------+ + + + + | 09/17/ | Hospital | [facility] | Geovanni Milan MD | | | 2001 | Encounter | FAMILY EMERGENCY | [address] [place] | | | | | CENTER [address] | [place], [place] | | | | | [address] | [address] | | | | | [place] | | | | | | [address] | | | | | | [phone] | | | +--------+ + + + [...] [place], | | | | | | [place] [address] | | | | | | [phone] | | | | | | | | +--------+---------+ + + + documented as of this encounter Visit Diagnoses Not on filedocumented in this encounter"
--- OUTSIDE RECORDS SUMMARY | ~2019-09-08 | XMS | Encounter Summary ---
Demographics + + + | Address | [address] | | | [place] [address] | + + + | Home Phone | | + + + | Preferred Language | Unknown | + + + | Marital Status | | + + + | Lutheran Affiliation | 1041 | + + + | Race | Unknown | + + + | Ethnic Group | Unknown | + + + Author + + + | Author | [facility] | | | and Ankitana | + + + | Organization | [facility] | | | and Ankitana [...] Team Providers + +------+ + | Care Sound Editor Name | Role | Phone | + [...] [address] | | | | [address] | [facility] | | | | | [facility] | [place] [address] | | | | | [place] | [phone] | | | | | [address] | | | | | | [phone] | | | +--------+ + + + [...] W | | | | | | [place], | | | | | | [place] [address] | | | | | | [phone] | | | | | | | | +--------+---------+ + + + documented as of this encounter Procedures + +--------+ + + + | Procedure Name | Priori | Date/Time | Associated Diagnosis | Comments | | | ty | | | | + +--------+ + + + | TAI HENDERSON, | Routin | 01/22/2011 | | Results [...] | Status | 01/24/2011 Final | | [facility] | | | | | [...] + + + | [facility] | [address] | [place] [address] | | | [facility] | | | | | LABORATORY | | | | + + + + + | [facility] | | | | | [facility] | | | | | LABORATORY | | | | + + + + + Historical Imaging Result (01/22/2011 1:53 PM PDT) + + | Specimen | + + | | + + + + + | Narrative | Performed At | + + + | Exam Performed Location: [facility] | MISCELANIOUS | | PA AND [...] + + | Tim, Rad Conversion - 07/29/2013 8:42 PM PDT Exam [facility]formed [facility] CHESTCLINICAL INFORMATION:Vomiting with shortness [...] + | MISCELLANEOUS LAB | | | [phone] | + +---------+ + + | MISCELANIOUS LAB | | | [phone] | + +---------+ + + Drugs of [...] + + + | [facility] | [address] | [place] [address] | | | [facility] | | | | | LABORATORY [...] I | <0.04 | <0.08 ng/mL | [facility] | | | | | [...] + | [facility] | [address] | [place] [address] | | | [facility] | | [...] (H) | 0 - 20 mm/h | [facility] | | | | | [...] + + + | [facility] | [address] [facility] | [place] [address] | | | [facility] | | | | | LABORATORY | | | | + + + + + | [facility] | | | | | [facility] [...] + + + + + | [facility] | [address] | [place] [address] | | | [facility] | | [...] | 5.3 (H) | <1.6 mg/dL | [facility] | | | | | | [facility] | | | | [facility] | | | | | | LABORATORY | | + +---------+ + + + + + | Specimen | + + | | + + + + + + + | Performing | Address | City/State/Zipcode | Phone Number | | Organization | | | | + + + + + | [facility] | [address] | [place] [address] | | | [facility] | | | | | LABORATORY | | | | + + + + + | [facility] | | | | | [facility] [...] | | | | | mmol/L | [facility] | | | | [...] Impaired | 65 - 99 mg/dL | [facility] | | | | fasting glucose: 100 to | | [facility] | | | | 125 mg/dL. [...] + + | [facility] | [address] | [place] [address] | | | [facility] | | | | | LABORATORY | | | | + + + + + | [facility] | | | | | [facility] | | | | | [...] | + + + + + | [facility] | [address] | [place] [address] | | | [facility] | | [...] (L) | 25 - 115 U/L | [facility] | | | | [...] + + | [facility] | [address] | [place] [address] | | | [facility] | | [...] (H) | 4.0 - 11.0 K/uL | [facility] | | | | | [facility] | | [facility] | | | | | | LAB[facility]ATORY | | + + + + + + | RBC | 4.85 | 3.80 - 5.20 | [facility] | | | | | M/uL | [facility] | | | | [...] + + + | [facility] | [address] [facility] | [place] [address] | | | [facility] | | [...]
--- OUTSIDE RECORDS SUMMARY | ~2019-09-08 | XMS | Encounter Summary ---
Demographics + + + | Address | [address] | | | [place] [address] | + + + | Home Phone | | + + + | Preferred Language | Unknown | + + + | Marital Status | | + + + | Anglican Affiliation | 1041 | + + + | Race | Unknown | + + + | Ethnic Group | Unknown | + + + Author + + + | Author | [facility] | | | and Ankitana | + + + | Organization | [facility] | | | and Aknitana | + + + | Address | [...] Team Providers + +------+ + | Care Brass Cutter Name | Role | Phone | + +------+ + | Kiran Oneill DO | PCP | | + +------+ + Encounter Details +--------+ + + + + | Date | Type | Department | Care Team | Description | +--------+ + + + + | 08/11/ | Abstract | [facility] | Provider, | | | 2019 | | GASTROENTEROLOGY | [address] | | | | | [address] [facility] | Conrad Hamilton | | | | | [address] | [place] [address] | | | | | [address] | | | | | | [phone] | | | +--------+ + + + + Social History + + + +--------+------+ | Tobacco Use | Types | Packs/Day | Years | Date | | | | | Used | | + + + +--------+------+ | Light Tobacco Smoker | Cigarettes | 0.25 | 20 | | + + + +--------+------+ + [...] [place], | | | | | | [place] [address] | | | | | | [phone] | | | | | | | | +--------+---------+ + + + documented as of this encounter Visit Diagnoses Not on filedocumented in this encounter"
--- OUTSIDE RECORDS SUMMARY | ~2019-09-08 | XMS | Encounter Summary ---
Demographics + + + | Address | [address] | | | [place] [address] | + + + | Home Phone | | + + + | Preferred Language | Unknown | + + + | Marital Status | | + + + | Yarsanism Affiliation | 1041 | + + + | Race | Unknown | + + + | Ethnic Group | Unknown | + + + Author + + + | Author | [facility] | | | and Ankitana | + + + | Organization | [facility] | | | and Ankitana [...] Team Providers + +------+ + | Care Catering Convention Services Manager Name | Role | Phone | [...] | | [facility] | [address] | | | | | LABORATORY [address] | [place] [address] | | | | | [address] [place] | [phone] | | | | | [address] | | | | | | [phone] | | | +--------+ + + + [...] W | | | | | | [place], | | | | | | [place] [address] | | | | | | [phone] | | | | | | | [...] + + + | [facility] | [address] | [place] [address] | | | [facility] | | [...]
--- OUTSIDE RECORDS SUMMARY | ~2019-09-08 | XMS | Encounter Summary ---
Demographics + + + | Address | [address] | | | [place] [address] | + + + | Home Phone | | + + + | Preferred Language | Unknown | + + + | Marital Status | | + + + | Nondenominational Affiliation | 1041 | + + + | Race | Unknown | + + + | Ethnic Group | Unknown | + + + Author + + + | Author | [facility] | | | and Ankitana | + + + | Organization | [facility] | | | and Ankitana | + + + | Address | Unknown | + + + | Phone | Unavailable | + + + Support + + +---------+ + | Name | Relationship | Address | Phone | + + +---------+ + | Lizz Cruz | ECON | Unknown | | + + +---------+ + | Becky Anthony | ECON | Unknown | | + + +---------+ + Care Team Providers + +------+ + | Care Landscape Gardener Name | Role | Phone | + +------+ + | Yolanda Lee | PCP | | + +------+ + Reason for Visit + + + | Reason | Comments | + + + | Arm Swelling | | + + + Encounter Details +--------+ + + + + | Date | Type | Department | Care Team | Description | +--------+ + + + + | 05/25/ | Emergency | [facility] | Balaji-Tabatha, | Cellulitis of left | | 2015 | | [facility] | MD [address] | upper extremity with | | | | EMERGENCY CENTER | [address] [place], | underlying abscess | | | | [address] | [place] [address] | (Primary Dx); | | | | [place] | [phone] | Abscess of left | | | | [address] | | upper arm and | | | | [phone] | Sheryl Cunha, | forearm | | | | | [employer] [address] | | | | | | [place] | | | | | | [address] | | | | | | | [...] | | + +---+---+---+ + + | Tobacco Cessation: Ready to Quit: Yes | | Comments: states she is smoking 2-3 [...] + + + | Blood Pressure | 165/80 | 05/25/2015 2:49 PM | | | | | PDT | | + + + + + | Pulse | 98 | 05/25/2015 2:49 PM | | | | | PDT | | + + + + + | Temperature | 37.3 C (99.1 F) | 05/25/2015 2:49 PM | | | | | PDT | | + + + + + | Respiratory Rate | 18 | 05/25/2015 2:49 PM | | | | | PDT | | + + + + + | Oxygen Saturation | 95% | 05/25/2015 2:49 PM | | | | | PDT | | + + + + + | Inhaled Oxygen | - | - | | | Concentration | | | | + + + + + | Weight | 68 kg (150 lb) | 05/25/2015 2:49 PM | | | | | PDT | | + + + + + | Height | 172.7 cm (5' 8") | 05/25/2015 2:49 PM | | | | | PDT | | + + + + + | Body Mass Index | 22.81 | 05/25/2015 2:49 PM | | | | | PDT [...] by mouth | | 0 | | 11/27/201 | | (SEROQUEL) 100 mg | nightly. | | | | 9 | | tablet | | | | [...] [place], | | | | | | [place] [address] | | | | | | [phone] | | | | | | | | +--------+---------+ + + + documented as of this encounter Procedures + +--------+ + + + | Procedure Name | Priori | Date/Time | Associated Diagnosis | Comments | | | ty | | | | + +--------+ + + + | CBC WITH MANUAL | STAT | 05/25/2015 | | Results for this | | DIFFERENTIAL | | 5:20 PM | | procedure are in the | | | | PDT | | results section. | + +--------+ + + + | US EXTREMITY | Routin | 05/25/2015 | | Results for this | | NONVASCULAR LIMITED | e | 4:34 PM | | procedure are in the | | LEFT | | PDT | | results section. | + +--------+ + + + | C-REACTIVE PROTEIN | STAT | 05/25/2015 | | Results for this | | | | 3:46 PM | | procedure are in the | | | | PDT | | results section. | + +--------+ + + + | BASIC METABOLIC | STAT | 05/25/2015 | | Results for this | | PANEL | | 3:46 PM | | procedure are in the | | | | PDT | | results section. | + +--------+ + + + | ED INFORMATION | Routin | 05/25/2015 | | Results for this | | EXCHANGE | e | 2:28 PM | | procedure are in the | | | | PDT | | results section. | + +--------+ + + + documented in this encounter Results CBC with Manual Differential (05/25/2015 5:20 PM PDT) + + + + + + | Component | Value | Ref Range | Performed | Pathologist | | | | | At | Signature | + + + + + + | WBC | 18.2 (H) | 3.8 - 11.0 K/uL | [facility] | | | | [facility] | | | | | [facility] | | | | | | MED[facility] | | | | | | CENTER | | | | | | LABORATORY | | + + + + + + | RBC | 4.50 | 3.70 - 5.10 | [facility] | | | | | M/uL | [facility] | | | | | | HE[facility] | | | | | | MEDICAL | | | | | | CENTER | | | | | | LABORATORY | | + + + + + + | Hemoglobin | 12.6 | 11.3 - 15.5 | [facility] | | | | | g/dL | [facility] | | | | | | HE[facility] | | | | | | MEDICAL | | | | | | CENTER | | | | | | LABORATORY | | + + + + + + | Hematocrit | 37.1 | 34.0 - 46.0 % | [facility] | | | | | | [facility] | | | | | | [facility] | | | | | | MEDICAL | | | | | | CENTER | | | | | | LABORATORY | | + + + + + + | MCV | 82.5 | 80.0 - 100.0 fL | [facility] | | | | | | [facility] | | | | | | [facility] | | | | | | MEDICAL | | | | | | CENTER | | | | | | LABORATORY | | + + + + + + | MCH | 28.1 | 27.0 - 34.0 pg | [facility] | | | | | | [facility] | | | | | | HE[facility] | | | | | | MEDICAL | | | | | | CENTER | | | | | | LABORATORY | | + + + + + + | MCHC | 34.0 | 32.0 - 35.5 | [facility] | | | | | g/dL | [facility] | | | | | | HE[facility] | | | | | | MEDICAL | | | | | | CENTER | | | | | | LABORATORY | | + + + + + + | RDW-CV | 14.5 | 11.0 - 15.5 % | [facility] | | | | | | [facility] | | | | | | HEART | | | | | | MEDICAL | | | | | | CENTER | | | | | | LABORATORY | | + + + + + + | Platelet | 390 | 150 - 400 K/uL | [facility] | | | Count | | | [facility] | | | | | | HEART | | | | | | MEDICAL | | | | | | CENTER | | | | | | LABORATORY | | + + + + + + | % Segmented | 77.0 (H) | 38 - 70 % | [facility] | | | | | | [facility] | | | Neutrophils | | | HEART | | | | | | MEDICAL | | | | | | CENTER | | | | | | LABORATORY | | + + + + + + | % Bands | 13.0 (H) | 0 - 8 % | [facility] | | | | | | [facility] | | | | | | HE[facility] | | | | | | MEDICAL | | | | | | CENTER | | | | | | LABORATORY | | + + + + + + | % | 8.0 (L) | 21 - 49 % | [facility] | | | Lymphocytes | | | [facility] | | | | | | HEART | | | | | | MEDICAL | | | | | | CENTER | | | | | | LABORATORY | | + + + + + + | % Monocytes | 2.0 (L) | 3 - 11 % | [facility] | | | | | | [facility] | | | | | | HEART | | | | | | MEDICAL | | | | | | CENTER | | | | | | LABORATORY | | + + + + + + | Absolute | 14.01 (H) | 1.80 - 7.70 | [facility] | | | Segmented | | K/uL | [facility] | | | Neutrophils | | | HEART | | | | | | MEDICAL | | | | | | CENTER | | | | | | LABORATORY | | + + + + + + | Absolute | 2.37 (H) | 0.00 - 0.24 | [facility] | | | Bands | | K/uL | [facility] | | | | | | HEART | | | | | | MEDICAL | | | | | | CENTER | | | | | | LABORATORY | | + + + + + + | Absolute | 1.46 | 1.00 - 5.00 | [facility] | | | Lymphocytes | | K/uL | [facility] | | | | | | HEART | | | | | | MEDICAL | | | | | | CENTER | | | | | | LABORATORY | | + + + + + + | Absolute | 0.36 | 0.00 - 0.80 | [facility] | | | Monocytes | | K/uL | [facility] | | | | | | HEART | | | | | | MEDICAL | | | | | | CENTER | | | | | | LABORATORY | | + + + + + + | RBC | Normal | | [facility] | | | Morphology | | | [facility] | | | | | | HEART | | | | | | MEDICAL | | | | | | CENTER | | | | | | LABORATORY | | + + + + + + | WBC | Normal | | [facility] | | | Morphology | | | [facility] | | | | | | HEART | | | | | | MEDICAL | | | | | | CENTER | | | | | | LABORATORY | | + + + + + + | Platelet | Adequate | | [facility] | | | Morphology | | | [facility] | | | | | | HEART | | | | | | MEDICAL | | | | | | CENTER | | | | | | LABORATORY | | + + + + + + | Total | 100 | | [facility] | | | Counted | | | [facility] | | | | | | HEART | | | | | | MEDICAL | | | | | | CENTER | | | | | | LABORATORY | | + + + + + + + + | Specimen | + + | Blood specimen | | (specimen) | + + + + + + + | Performing | Address | City/State/Zipcode | Phone Number | | Organization | | | | + + + + + | [facility] | [address] | [place] [address] | | | [facility] | | | | | LABORATORY | | | | + + + + + US Extremity Nonvascular Limited Left (05/25/2015 4:34 PM PDT) + + | Specimen | + + | | + + + + + | Narrative | Performed At | + + + | ULTRASOUND LEFT ARM CLINICAL INFORMATION: Left arm pain, | [facility] | | cellulitis versus abscess. COMPARISON: None. PROCEDURE: | | | Nonvascular ultrasound examination of soft tissues in the left upper | | | arm. FINDINGS: There is a primarily hypoechoic collection lateral | | | aspect of the left upper arm measuring 11.8 x 2.6 x 3.2 cm. | | | Findings likely represent an abscess. Color flow is not | | | identified within this collection.. IMPRESSION: Nearly 12 cm | | | lateral left upper arm collection consistent with abscess | | + + + + + | Procedure Note | + + | Tim, Rad Results In - 05/25/2015 4:39 PM PDT | | | | ULTRASOUND LEFT ARM | | | | CLINICAL INFORMATION: | | Left arm pain, cellulitis versus abscess. | | | | COMPARISON: | | None. | | | | PROCEDURE: | | Nonvascular ultrasound examination of soft tissues in the left upper | | arm. | | | | FINDINGS: | | There is a primarily hypoechoic collection lateral aspect of the left | | upper arm measuring 11.8 x 2.6 x 3.2 cm. Findings likely represent | | an abscess. Color flow is not identified within this collection.. | | | | IMPRESSION: | | Nearly 12 cm lateral left upper arm collection consistent with abscess | + + + +---------+ + + | Performing | Address | City/State/Zipcode | Phone Number | | Organization | | | | + +---------+ + + | [facility] | | | | + +---------+ + + C-Reactive Protein (05/25/2015 3:46 PM PDT) + + + + + + | Component | Value | Ref Range | Performed | Pathologist | | | | | At | Signature | + + + + + + | CRP | 15.6 (H)Comment: This | 0.0 - 1.5 mg/dL | [facility] | | | | CRP assay is useful as a | | [facility] | | | | marker of acute | | HEART | | | | inflammation. For | | MEDICAL | | | | cardiac risk | | CENTER | | | | stratification order | | LABORATORY | | | | High Sensitive CRP, | | | | | | Order Code HCRP. | | | | + + + + + + + + | Specimen | + + | | + + + + + + + | Performing | Address | City/State/Zipcode | Phone Number | | Organization | | | | + + + + + | [facility] | [address] | [place] [address] | | | [facility] | | | | | LABORATORY | | | | + + + + + Basic Metabolic Panel (05/25/2015 3:46 PM PDT) + + + + + + | Component | Value | Ref Range | Performed | Pathologist | | | | | At | Signature | + + + + + + | Na | 127 (L) | 135 - 145 | [facility] | | | | | mmol/L | [facility] | | | | | | HEART | | | | | | MEDICAL | | | | | | CENTER | | | | | | LABORATORY | | + + + + + + | K | 4.3 | 3.5 - 5.0 | [facility] | | | | | mmol/L | [facility] | | | | | | HEART | | | | | | MEDICAL | | | | | | CENTER | | | | | | LABORATORY | | + + + + + + | Cl | 94 (L) | 99 - 109 mmol/L | [facility] | | | | | | [facility] | | | | | | HE[facility] | | | | | | MEDICAL | | | | | | CENTER | | | | | | LABORATORY | | + + + + + + | CO2 | 25 | 21 - 28 mmol/L | [facility] | | | | | | [facility] | | | | | | HE[facility] | | | | | | MEDICAL | | | | | | CENTER | | | | | | LABORATORY | | + + + + + + | Glucose | 94Comment: Monegasque | 65 - 99 mg/dL | [facility] | | | | Diabetes Association | | [facility] | | | | diagnostic categories | | HEART | | | | for non adults: | | MEDICAL | | | | Impaired fasting | | CENTER | | | | glucose 100 to 125 | | LABORATORY | | | | mg/dL. A fasting | | | | | | glucose result of 126 | | | | | | mg/dL or greater | | | | | | indicates diabetes if | | | | | | the abnormality is | | | | | | confirmed on a | | | | | | subsequent day. A | | | | | | random glucose result of | | | | | | greater than 200 mg/dL | | | | | | indicates diabetes if | | | | | | the abnormality is | | | | | | confirmed on a | | | | | | subsequent day. | | | | + + + + + + | BUN | 10 | 8 - 25 mg/dL | [facility] | | | | | | [facility] | | | | | | HEART | | | | | | MEDICAL | | | | | | CENTER | | | | | | LABORATORY | | + + + + + + | Creatinine | 0.59Comment: IDMS | 0.50 - 1.00 | [facility] | | | | traceable creatinine | mg/dL | [facility] | | | | | | HEART | | | | | | MEDICAL | | | | | | CENTER | | | | | | LABORATORY | | + + + + + + | Calcium | 9.1 | 8.5 - 10.2 | [facility] | | | | | mg/dL | [facility] | | | | | | HEART | | | | | | MEDICAL | | | | | | CENTER | | | | | | LABORATORY | | + + + + + + | Anion Gap | 8 | 5 - 16 mmol/L | [facility] | | | | | | [facility] | | | | | | HEART | | | | | | MEDICAL | | | | | | CENTER | | | | | | LABORATORY | | + + + + + + | Estimated | >60Comment: GFR <60: | >60 | [facility] | | | GFR | Chronic kidney disease, | ml/min/1.73m2 | [facility] | | | | if found over a 3 month | | HEART | | | | period.GFR <15: Kidney | | MEDICAL | | | | failure.For | | CENTER | | | | Americans, multiply the | | LABORATORY | | | | calculated GFR by 1.210 | | | | + + + + + + + + | Specimen | + + | Blood specimen | | (specimen) | + + + + + + + | Performing | Address | City/State/Zipcode | Phone Number | | Organization | | | | + + + + + | [facility] | [address] | [place] [address] | | | [facility] | | | | | LABORATORY | | | | + + + + + ED INFORMATION EXCHANGE (05/25/2015 2:28 PM PDT) + + | Specimen | + + | | + + + + + | Narrative | Performed At | + + + | ED/UCC VISIT TRACKING (3 MO.) Visit Date | [place] [facility] | | Location Type Dx / | | | Complaint -------- | | | ---- 05/25/2015 | | | 14:26 [facility] -3 | | | Cellulitis 02/22/2015 07:09 [facility] | | | Emergency -Urinary tract infection, site not specified | | | | | | -fever, chills | | | | | | -Unspecified septicemia | | | -Amphetamine or | | | related acting sympathomimetic abuse, unspecified | | | | | | -Cellulitis and abscess of unspecified sites | | | | | | -Sepsis | | | -Hyposmolality and/or | | | hyponatremia | | | -Acute kidney failure, | | | unspecified ED VISIT COUNT (1 YR.) Visits [place] | | | Dx Location ------ --------- 4 | | | 0 [facility] [place] 3 | | | 0 [facility] 7 | | | 0 Total Note: Visits indicate total | | | known visits. [place] Dx are the number of primary diagnoses on | | | the [facility]'s non-emergent dx list. | | | | | | --- | | | | | | --- Care Guidelines exist for the following facilities: [facility] | | | [facility] ( 09/07/2013 ) [place] Prescription Review PDMP | | | Report PDMP report does not meet criteria. | | + + + + +---------+ + + | Performing | Address | City/State/Zipcode | Phone Number | | Organization | | | | + +---------+ + + | [facility] | | | | + +---------+ + + documented in this encounter Visit Diagnoses + + | Diagnosis | + + | Cellulitis of left upper extremity with underlying abscess - Primary Cellulitis and | | abscess of upper arm and forearm | + + | Abscess of left upper arm and forearm Cellulitis and abscess of upper arm and forearm | + + documented in this encounter Additional Health Concerns + + + + | Infection | Noted Time | Resolved Time | + + + + | Methicillin-resistant Staphylococcus aureus | 03/01/2015 1:42 PM | 06/11/2018 2:44 PM | | | PDT | PDT | + + + + documented as of this encounter
--- OUTSIDE RECORDS SUMMARY | ~2019-09-08 | XMS | Encounter Summary ---
Demographics + + + | Address | [address] | | | [place] [address] | + + + | Home Phone | | + + + | Preferred Language | Unknown | + + + | Marital Status | | + + + | Muslim Affiliation | 1041 | + + + | Race | Unknown | + + + | Ethnic Group | Unknown | + + + Author + + + | Author | [facility] | | | and Ankitana | + + + | Organization | [facility] | | | and Ankitana [...] Team Providers + +------+ + | Care Stull Installer Name | Role | Phone | + +------+ + | Kiran Oneill DO | PCP | | + +------+ + Reason for Visit + + + | Reason | Comments | + + + | Follow-up | | + + + | Coronary Artery | | | Disease | | + + + | Hypertension | | + + + | Hyperlipidemia | | + + + Encounter Details +--------+---------+ + + + | Date | Type | Department | Care Team | Description | +--------+---------+ + + + | 11/25/ | Office | [facility] | Carol, | Hypertension, | | 2019 | Visit | CARDIOLOGY [address] | [place]VATORE Moreno [address] | unspecified type | | | | [place], | [place], | (Primary Dx); | | | | [place] [address] | [place] [address] | Ischemic | | | | [phone] | [phone] | cardiomyopathy; | | | | | | Mixed | | | | | | hyperlipidemia; ASHD | | | | | | (arteriosclerotic | | | | | | heart disease) | +--------+---------+ + + + Social History + + [...] + + + | Blood Pressure | 130/60 | 11/25/2018 10:51 AM | | | | | PST | | + + + + + | Pulse | 72 | 11/25/2018 10:51 AM | | | | | PST | | + + + + + | Temperature | - | - | | + + + + + | Respiratory Rate | 20 | 11/25/2018 10:51 AM | | | | | PST | | + + + + + | Oxygen Saturation | - | - | | + + + + + | Inhaled Oxygen | - | - | | | Concentration | | | | + + + + + | Weight | 82 kg (180 lb 12.4 | 11/25/2018 10:51 AM | | | | oz) | PST | | + + + + + | Height | 172.7 cm (5' 8") | 11/25/2018 10:51 AM | | | | | PST | | + + + + + | Body Mass Index | 27.49 | 11/25/2018 10:51 AM | | | | | PST | | + + + + + [...] + + documented as of this encounter Patient Instructions Patient Instructions Dayana Chan, Quality Improvement Coordinator (Rn) - 11/25/2018 10:45 AM PST 1. Start taking lisinopril 20 mg twice daily by mouth to help with your blood pressure . 2. You will check your blood pressure and pulse twice daily for two weeks and return the lo g to our office. 3. You will need to go to get your labs (BMP) drawn at [facility] . 4. Please follow up in 2 - 3 months for office visit, or sooner with concerns. Anabelle mccloud signed by Dolly Navarro Assistant at 11/25/2018 11:25 AM PST documented in this encounter Progress Notes Tiffanie Medina ARNP - 11/25/2018 10:45 AM PSTFormatting of this note might be differen t from the original. PATIENT NAME: Smitha Pichardo : 1955: AGE: 63 y.o. PRIMARY CARE: Kiran Oneill DO CC: OUTPATIENT HEART FAILURE FOLLOW UP VISIT Date of Service: 11/25/2018 HISTORY OF PRESENT ILLNESS: Smitha Pichardo is a 63 y.o. female with a history of coronary artery disease with isch emia cardiomyopathy, hypertension, hyperlipidemia, tobacco use and stage III chronic kidney disease. She is being seen today for follow up heart failure. She was last seen 10/22/2018 at which time, she would have echocardiogram checked in [place] on [address]. She would increase Metoprolol XL 100 mg in the morning and 50 mg in the evening. Sh e will check her blood pressure and pulse twice daily for two weeks and return the log to ou r office. She would be referred to sleep specialist for PATRICE. She was again counseled on impo rtance of daily weight monitoring, signs and symptoms of worsening congestive heart failure to notify our office with, and sodium restricted diet. Weight log and blood pressure log wit h written education is given to the patient. Shewould follow up in 2-4 weeks for office visi t, or sooner with concerns. She would have echocardiogram done prior to visit to follow up h er ejection fraction. She also needs to start cardiac rehabilitation. Since that time, she has been feeling "better". She is on the waiting list for cardiac reha bilitation. She has noticed over the last 2 weeks her blood pressure has been increasing. He r PCP increased her metoprolol XL to 150 mg daily. Still high in blood pressure readings. S he has been eating sodium in extra because of eating out palestinian food for the last weeks Her energy level is unchanged since her last visit. Her shortness of breath has been unchan ged in this time period. Her leg swelling has been worsened. Her blood pressure log is revie fri and shows blood pressure has been elevated at 130/60 mmHg - 189/100 and heart rate has b een 50-72 beats per minute. Her weight log is reviewed and shows weight has fluctuated in a few pound range but overall remains unchanged. She has been following a sodium restricted di et. She has not been following a fluid restriction. She reported she not been have anything in high sodium. She been eating out more in the past few weeks. Otherwise, she has no change in other cardiac symptoms. She has not had any chest pain or d iscomfort at rest or with exertion. She has not had any lightheadedness or dizziness. She h as not noticed palpitations. She sleeps on 1 pillow at night without any shortness of breath . She does not exercise due her knees and she has an appointment to get her knee looked at. She reports her knee is bone on bone. MEDICAL, SURGICAL, AND PERSONAL HISTORY Past Medical, Surgical, Family, and Social History are reviewed in EPIC. CURRENT PROBLEMS Patient Active Problem List Diagnosis Hypertension Ischemic cardiomyopathy Smoker - Daily ASHD (arteriosclerotic heart disease) Mixed hyperlipidemia Cellulitis and abscess of hand, except fingers and thumb Heroin dependence Bipolar disorder Hyponatremia GILDARDO (acute kidney injury) Bacteremia due to Streptococcus / Sepsis Leukocytosis, unspecified type Closed pelvic ring fracture, with routine healing, subsequent encounter Normocytic anemia Positive D dimer Elevated C-reactive protein (CRP) Elevated procalcitonin Primary osteoarthritis involving multiple joints Iron deficiency Multiple closed fractures of pelvis without disruption of pelvic ring with routine heal ing Chest pain syndrome Non-intractable vomiting with nausea Polysubstance abuse GERD (gastroesophageal reflux disease) Elevated troponin level Methamphetamine use S/P CABG x 3 - 2017 Status post coronary artery stent placement Beta Blockers - Daily Use Cardiac LV ejection fraction 30-35% Kidney disease, chronic, stage II (GFR 60-89 ml/min) H/O OK (myocardial infarction) Hepatitis C Risk factors for obstructive sleep apnea Cardiac arrest with ventricular fibrillation CURRENT MEDICATIONS Current Outpatient Prescriptions Medication Sig Dispense Refill acetaminophen (TYLENOL) 500 mg tablet Take 500 mg by mouth every 6 hours as needed for Pain. aspirin 81 mg EC tablet Take 81 mg by mouth Daily. atorvaSTATin (LIPITOR) 80 MG tablet Take 1 tablet by mouth nightly. 90 tablet 3 calcium-vitamin D (OSCAL) 500 mg-200 units per tablet Take 2 tablets by mouth 3 times d aily (with meals). 90 tablet 3 ferrous sulfate 325 mg tablet Take 1 tablet by mouth 2 times daily (with breakfast & di nner). 60 tablet 0 FLUoxetine (PROZAC) 20 mg capsule Take 20 mg by mouth Daily. lisinopril (PRINIVIL, ZESTRIL) 20 mg tablet Take 1 tablet by mouth 2 times daily. 60 ta blet 11 LORazepam (ATIVAN) 1 mg tablet Take 1 tablet by mouth every 6 hours as needed for Anxie ty. 20 tablet 0 metoprolol succinate (TOPROL-XL) 100 mg ER tablet Take 1.5 tablets by mouth Daily. She now takes 150 mg daily 45 tablet 11 pantoprazole (PROTONIX) 20 mg tablet Take 40 mg by mouth every morning (before breakfas t). Polysaccharide Iron Complex 50 MG CAPS Take 1 capsule by mouth 3 times daily (with meal s). 90 capsule 2 QUEtiapine (SEROQUEL) 100 mg tablet Take 100 mg by mouth nightly. No current facility-administered medications for this visit. ALLERGIES No Known Allergies ROS Review of Systems Constitutional: Positive for malaise/fatigue. Respiratory: Positive for shortness of breath. Cardiovascular: Positive for leg swelling (she had swelling the past 3 days). Negative for chest pain and palpitations. Neurological: Positive for weakness. Negative for dizziness. Lightheadedness -- no Endo/Heme/Allergies: Does not bruise/bleed easily. OBJECTIVE: PHYSICAL EXAM BP 130/60 | Pulse 72 | Resp 20 | Ht 1.727 m (5' 8") | Wt 82 kg (180 lb 12.4 oz) | BMI 27.49 kg/m Physical Exam Constitutional: She appears well-developed and well-nourished. No distress. Elderly adult female here with her daughter Neck: Normal carotid pulses, no hepatojugular reflux and no JVD present. Carotid bruit is n ot present. Cardiovascular: Regular rhythm, S1 normal, S2 normal, normal heart sounds, intact distal pu lses and normal pulses. Bradycardia present. PMI is not displaced (No JVD). Exam reveals no gallop, no S3, no S4 and no friction rub. No murmur heard. Pulses: Carotid pulses are 2+ on the right side, and 2+ on the left side. Dorsalis pedis pulses are 2+ on the right side, and 2+ on the left side. Pulmonary/Chest: Effort normal and breath sounds normal. No accessory muscle usage. No resp iratory distress (lungs clear). She has no decreased breath sounds. She has no wheezes. She has no rhonchi. She has no rales. Abdominal: Normal appearance, normal aorta and bowel sounds are normal. She exhibits no abd ominal bruit and no pulsatile midline mass. There is no hepatosplenomegaly. There is no tend erness. Musculoskeletal: She exhibits edema (mild L>R pitting edema legs). Deformity: bilater edeam Neurological: She is alert. Gait (utilizing a wheelchair for ambulation) normal. Skin: Skin is warm, dry and intact. Psychiatric: She has a normal mood and affect. Her mood appears not anxious. She does not e xhibit a depressed mood. Vitals reviewed. ECG: I personally independently reviewed ECG tracing during this visit (interpreted and chad led by another provider): Results for orders placed or performed in visit on 10/01/18 ECG 12 lead Result Value Ref Range INTERPRETATION TEXT Normal sinus rhythm Left anterior fascicular block Inferior infarct , age undetermined Abnormal ECG Confirmed by MARIANGEL WALTON MD ([id number]) on 10/01/2018 12:13:49 PM LAB RESULTS reviewed during visit today primarily from [facility]: LIPID No results found for: CHOL, TRIG, HDL, LDL, CHOLHDL, LDLEX, HDLEX, TRIGEX, CHOLEX CHEMISTRY Lab Results Component Value Date GLU 110 (H) 08/13/2018 GLUEX 99 10/14/2018 NA 136 08/13/2018 NAEX 136 10/14/2018 K 5.1 08/13/2018 KEX 5.1 10/14/2018 CL 107 08/13/2018 CLEX 104 10/14/2018 CO2 23 (L) 08/13/2018 CO2EX 19 (A) 10/14/2018 CALCIUM 8.9 08/13/2018 ALKPHOS 181 (H) 08/13/2018 AST 27 08/13/2018 ASTEX 22 10/14/2018 ALT 20 08/13/2018 ALTEX 16 10/14/2018 BILITOT 0.5 08/13/2018 CREA 1.00 08/13/2018 BUN 28 (H) 08/13/2018 EGFR 38 (L) 06/15/2018 EGFREX 59 (A) 10/14/2018 CREEX 1 10/14/2018 HEMATOLOGY Lab Results Component Value Date WBC 8.7 08/13/2018 WBCEX 10.59 10/14/2018 HGB 11.0 (L) 08/13/2018 HGBEX 11.75 (A) 10/14/2018 HCT 36.5 08/13/2018 HCTEX 34.35 (A) 10/14/2018 PLT 350 08/13/2018 PLTEX 318 10/14/2018 BNP Lab Results Component Value Date BNP 168 (H) 10/27/2016 BNP NULL 05/16/2012 BNP NULL 05/12/2012 LAST EJECTION FRACTION LVEF-TTE TRANSTHORACIC ECHO (%) Date Value 06/08/2018 45 LVEF-SPECT NUCLEAR STRESS/VIABILITY (%) Date Value 06/09/2018 32 LVEF-LVGRAM CARDIAC CATH (%) Date Value 06/09/2018 37 I reviewed records from we requested her chart for her PCP left her clinic and she is waiti ng to get a new PCP. Echocardiogram on 10/28/2018 shows, the left ventricle is normal in size, wall thickness an d low normal systolic function EF 50 -50%, inferobasal and inferoseptal hypokinesis, the rig ht ventricle is normal in size and function, mild tricuspid regurgitation with mild pulmonar y hypertension RVSP 40 mmHg, there is no pericardial effusion, by Vanesa Hartman MD. Above data and testing is reviewed this visit; testing below is historical data unless othe rwise specified. ASSESSMENT: 1. Coronary artery disease with ischemic cardiomyopathy A. History cardiac arrest post unknown stenting in [address] [facility] in [place] B. Echocardiogram 2D , M-mode, Doppler and color Doppler on 05/11/12 shows, left ventricle: severe hypokinesis of the posterior, apical and lateral castillo, EF estimated at 2 5%, size was normal, left atrium: size was normal, there was mild annular calcification, va lve structure was normal, there was normal leaflet separation. Doppler: there transmitral ve locity was within normal range, there was no evidence for stenosis, there was no CC: By George Broussard MD and Slick Hernandez Echocardiogram on 01/13/14 shows, a two-dimensional transthoracic echocardiog amara with M-mode, pulsed wave and color Doppler was performed, the study was diagnostic quali ty, normal left ventricular size and the global systolic function at the lower limit of norm al LVEF 50%. Moderate-severe hypokinesis of the inferior wall, thickened mitral valve with m ild mitral regurgitation, sclerotic aortic valve without stenosis or regurgitation, normal r ight ventricle size and function. By MD. Jose Anthony. Echocardiogram on 02/23/15 shows, the left ventricle is grossly normal size, there is normal left ventricular wall thickness. Basal infero-posterior severe hypokinesis n oted as previously seen on 01/13/2014. The visually estimated LV ejection fraction is 55%, th e right ventricle is normal in size and function, the left atrium is mildly dilated, the romaine ral valve leaflets appear thickened, but open well, no obvious valvular vegetation detected. There is mild mitral regurgitation, aortic valve leaflets appear mildly thickened, but open normally, no obvious valvular vegetation detected. No hemodynamically significant valvular aortic stenosis. No aortic insufficiency is present, the pulmonic valve appears normal in st ructure and function, the tricuspid valve is grossly normal in appearance. No obvious valvul ar vegetation detected. There is mild tricuspid regurgitation, doppler findings suggest mode rate pulmonary hypertension, estimated PA pressure is 47 mmHg. E. Echocardiogram on 08/27/16 shows normal biventricular chamber size and systo lic function, the estimated LVEF is 55%, normal valvular function, no vegetation are seen, p ulmonary pressure could not be estimated. F. Nuclear stress test on 06/09/18 shows High risk study due to ischemia with rem ote infarction, low EF and poor exercise tolerance, anterior septal ischemia, mid to apical. Moderate severity, cardiomyopathy, EF calculated 32% - may be off due to total lack of coun ts in the inferior and lateral castillo from prior OK, mild destinee infarct ischemia. LARGE SEVERE inferior and Lateral OK. By Shad Schuler MD G. Left heart cath on 06/09/18 shows, severely calcified coronaries with severe t hree-vessel CAD including 60% distal left main, 90% ostial circumflex, 99% proximal circumfl ex, obtuse marginal 4 and 5 disease, ostial and proximal 40% LAD, 95% ostial septal perforat or, 70% mid and distal LAD, 100% mid RCA with left to right collaterals to a medium PDA and posterolateral, Ischemic cardiomyopathy with a moderate very severe mid to basal inferior wa ll motion abnormalities, anterolateral wall motion abnormality, hyperkinetic anterior wall a nd apex, overall EF about 37%, normal LV end-diastolic pressure, 10-12 mmHg, severe mitral a nnular calcification. No significant mitral regurgitation. By Shad Schuler MD. H. CABG on 06/11/18 shows coronary artery bypass grafting x3, GOODMAN-LAD, RSVG-OM2 and RSVG-PDA, endoscopicleft greater saphenous vein harvest. By Hemanth Webster MD. I. CHIQUITA on 06/11/18 shows, pre-procedure Summary Dx:, moderately reduced LV systo lic function. Visually estimated LVEF 35%, normal LV size and shape, normal wall thickness, normal RV size with normal function, no obvious atrial enlargement. KEZIA normal size without SEC, masses, or thrombi. IAS intact, no PFO detected, mitral valve normal structure and func tion. Trace MR with central jet. moderate MAC, trileaflet aortic valve with normal structure and function, no significant aortic stenosis. No AI, tricuspid valve normal structure and f unction. Trace TR, pulmonic valve normal Trace [place], visible portions of ascending aorta and a rch normal, grade 2 atherosclerotic disease of descending aorta, pulmonary artery normal, no rmal pericardium. No pericardial fluid. No pleural fluid. Post-procedure, LV function is im proved to borderline with LVEF=50%, previously severely hypokinetic inferolateral segments a re improved, no change in right ventricular function compared to preop, no change in valves compared to preop, no change in visible portions of aorta after decannulation, LV and RV fun ction unchanged after sternal closure. J. Echocardiogram on 10/28/2018 shows, the left ventricle is normal in size, wa ll thickness and low normal systolic function EF 50 -50%, inferobasal and inferoseptal hypok inesis, the right ventricle is normal in size and function, mild tricuspid regurgitation wit h mild pulmonary hypertension RVSP 40 mmHg, there is no pericardial effusion, by Vanesa Sharma. Today, 11/25/2018, she is asymptomatic. She experienced a slight increase in leg swellin g along with a raise in blood pressure after increase in sodium consumption. She has no cheryl na or dyspnea. She is on a medical regimen with aspirin, PHOEBE-I, beta-mateus and statin. Th ere are no signs or symptoms of overt congestive heart failure, and her physical exam shows no significant fluid retention. She is in class II- Symptoms with moderate exertion of the [place] [employer] functional class. 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 Discussed the results of the echocardiogram. She has a appointment with [facility] in a few weeks. She is doing minimal exercise but she is walking and has been en couraged to continue increasing. 2. Hypertension A. Today, 11/25/2018, her blood pressure is borderline elevated. She would benef it from medication adjustment.. It is well control in office but at home it has been elevat ed the past few days. She had swelling ankles and high blood pressure. We will adjust Lisino pril and do another blood pressure. 3. Hyperlipidemia A. Today, 11/25/2018, she remains on atorvastatin. 4. Tobacco use A.She continues to smoke cigarettes and is counseled on the importance of smoki ng cessation but she is not willing to consider smoking cessation at this time. She is coun seled on this for < 3 minutesShe reports she is smoking 1 - 2 cigarettes a day. 5. Stage III chronic kidney disease Not otherwise addressed today 11/25/2018. A. eGFR on 08/13/18 is 56. PLAN: 1. Increase Lisinopril 20 mg twice a day by mouth 2. Check BMP in 2 weeks 3. check blood pressure and pulse twice daily for two weeks and return the log to our offi ce. 4. She is again counseled on importance of daily weight monitoring, signs and symptoms of w orsening congestive heart failure to notify our office with, and sodium restricted diet. Yusuf ght log and blood pressure log with written education is given to the patient. 5. She will follow up in 3 months for office visit, or sooner with concerns. In the meant adan she has been encouraged to go to cardiac rehabilitation and watch the sodium intake. IDayana MA-C, am acting as a scribe on behalf of, and in the presence of SALVATORE Baker. - HOLLI Dinh 11/25/2018 12:03 Portions of this chart may have been created with [employer] voice recognition software. Occasi onal wrong-word or sound-alike substitutions may have occurred due to the inherent meyers itations of voice recognition software. Please read the chart carefully and recognize, using context, where these substitutions have occurred. documented in th is encounter Plan of Treatment +--------+---------+ + + + | Date | Type | Specialty | Care Team | Description | +--------+---------+ + + + | 10/28/ | Office | Cardiology | Carol, | | | 2019 | Visit | | SALVATORE Moreno [address] | | | | | | [place], | | | | | | [place] [address] | | | | | | [phone] | | | | | | | | +--------+---------+ + + + documented as of this encounter Visit Diagnoses + + | Diagnosis | + + | Hypertension, unspecified type - Primary | + + | Ischemic cardiomyopathy Other specified forms of chronic ischemic heart disease | + + | Mixed hyperlipidemia | + + | ASHD (arteriosclerotic heart disease) Coronary atherosclerosis of unspecified type of | | vessel, [place] or graft | + + documented in this encounter
--- OUTSIDE RECORDS SUMMARY | ~2019-09-08 | XMS | Encounter Summary ---
Demographics + + + | Address | [address] | | | [place] [address] | + + + | Home Phone | | + + + | Preferred Language | Unknown | + + + | Marital Status | | + + + | Voodoo Affiliation | 1041 | + + + | Race | Unknown | + + + | Ethnic Group | Unknown | + + + Author + + + | Author | [facility] | | | and Ankitana | + + + | Organization | [facility] | | | and Ankitana [...] Team Providers + +------+ + | Care Shellfish Bed Worker Name | Role | Phone | + +------+ + | Yolanda Lee | PCP | | + +------+ + Encounter Details +--------+ + + + + | Date | Type | Department | Care Team | Description | +--------+ + + + + | 02/28/ | Hospital | [facility] | Jesse Siddiqi MD | Cellulitis and | | 2015 | Encounter | [facility] | [address], | abscess of hand, | | | | INFUSION [address] [place], | except fingers and | | | | [address] [place], [place] | [place] [address] | thumb; Bacteremia | | | | [address] | [phone] | due to Streptococcus | | | | [phone] | | / Sepsis | +--------+ + [...] + + + | Blood Pressure | 156/92 | 02/28/2015 5:47 PM | | | | | PDT | | + + + + + | Pulse | 74 | 02/28/2015 5:47 PM | | | | | PDT | | + + + + + | Temperature | 36.5 C (97.7 F) | 02/28/2015 5:00 PM | | | | | PDT | | + + + + + | Respiratory Rate | - | - | | + [...] + + documented as of this encounter Progress Amy Conrad RN - 02/28/2015 5:03 PM PDTHere for infusion documented in this encounter Plan of Treatment +--------+---------+ + + + | Date | Type | Specialty | Care Team | Description | +--------+---------+ + + + | 10/28/ | Office | Cardiology | Carol, | | | 2019 | Visit | | SALVATORE Moreno [address] | | | | | | [place], | | | | | | [place] [address] | | | | | | [phone] | | | | | | | [...] 2 g in | New Bag | 02/29/20 | 2 g | 100 | | | sodium chloride 0.9% 50 mL IVPB | | 15 5:06 | | mL/hr | | | 2 g, Intravenous, Administer over | | PM PDT | | | | | 30 Minutes, EVERY 24 HOURS | | | | | | | (Daily), First dose on Fri | | | | | | | 5/26/15 at 1720, For 14 days, | | | | [...] | | | +---+---+ documented in this encounter"
--- OUTSIDE RECORDS SUMMARY | ~2019-09-08 | XMS | Encounter Summary ---
Demographics + + + | Address | [address] | | | [place] [address] | + + + | Home Phone | | + + + | Preferred Language | Unknown | + + + | Marital Status | | + + + | Congregational Affiliation | 1041 | + + + | Race | Unknown | + + + | Ethnic Group | Unknown | + + + Author + + + | Author | [facility] | | | and [facility] | + + + | Organization | [facility] | | | and [...] Team Providers + +------+ + | Care Revising Clerk Name | Role | Phone | + +------+ + | Yolanda Lee | PCP | | + +------+ + Reason for Visit + + + | Reason | Comments | + + + | Hospital Follow-up | | + + + Encounter Details +--------+ + + + + | Date | Type | Department | Care Team | Description | +--------+ + + + + | 08/30/ | Telephone | [place] | [facility] | Hospital Follow-up | | 2015 | | Internal Medicine | [facility] | | | | | [facility] [address] | | | | | [address] | | | | | | [address] | | | | | | [phone] | | | +--------+ + + + [...] | | | | | | [place] [address] | | | | | | [phone] | | | | | | | | +--------+---------+ + + + documented as of this encounter Visit Diagnoses Not on filedocumented in this encounter Additional Health Concerns + + + + | Infection | Noted Time | Resolved Time | + + + + | Methicillin-resistant Staphylococcus aureus | 03/01/2015 1:42 PM | 06/11/2018 2:44 PM | | | PDT | PDT | + + + + documented as of this encounter"
--- OUTSIDE RECORDS SUMMARY | ~2019-09-08 | XMS | Encounter Summary ---
Demographics + + + | Address | [address] | | | [place] [address] | + + + | Home Phone | | + + + | Preferred Language | Unknown | + + + | Marital Status | | + + + | Buddhist Affiliation | 1041 | + + + | Race | Unknown | + + + | Ethnic Group | Unknown | + + + Author + + + | Author | [facility] | | | and [facility]kit[facility] | + + + | Organization | [facility] | | | and [facility] [...] Team Providers + +------+ + | Care Olive Pitter Name | Role | Phone | + +------+ + PCP | Unavailable | + +------+ + Encounter Details +--------+ + + + + | Date | Type | Department | Care Team | Description | +--------+ + + + + | 09/30/ | Hospital | [facility] | Kulwinder Spangler, | | | 2000 | Encounter | [facility] | [address] | | | | [address] | [facility] | | | | | [facility] | [place] [address] | | | | | [place] | [phone] | | | | | [address] | | | | | | [phone] | | | +--------+ + + + [...] | | | | | | [place], | | | | | | [place] [address] | | | | | | [phone] | | | | | | | | +--------+---------+ + + + documented as of this encounter Visit Diagnoses Not on filedocumented in this encounter"
--- OUTSIDE RECORDS SUMMARY | ~2019-09-08 | XMS | Encounter Summary ---
Demographics + + + | Address | [address] | | | [place] [address] | + + + | Home Phone | | + + + | Preferred Language | Unknown | + + + | Marital Status | | + + + | Synagogue Affiliation | 1041 | + + + | Race | Unknown | + + + | Ethnic Group | Unknown | + + + Author + + + | Author | [facility] | | | and Ankitana | + + + | Organization | [facility] | | | and Ankitana [...] Team Providers + +------+ + | Care Area Sales Manager Name | Role | Phone | + +------+ + | Yolanda Lee | PCP | | + +------+ + Reason for Referral Evaluate & Treat (Routine) +--------+ + + + + + | Status | Reason | Specialty | Diagnoses / | Referred By | Referred To | | | | | Procedures | Contact | Contact | +--------+ + + + + + | Closed | Specialty | Cardiac | Diagnoses | Wsh | [facility] | | | Services | Rehabilitatio | S/P CABG x | Cardiac | LUKES | | | Required | n | 3 | Transplant | REHABILITATIO | | | | | | [address] | | | | [address] | [place] | | | | | | [place] | [place] | | | | | | [address] | [address] | | | | | | Phone: | Phone: | | | | | | [phone] | [phone] | | | | | | Fax: | Fax: | | | | | | [phone] | [phone] | +--------+ + + + + + (Routine) +--------+--------+ + + + + | Status | Reason | Specialty | Diagnoses / | Referred By | Referred To | | | | | Procedures | Contact | Contact | +--------+--------+ + + + + | Closed | | | Diagnoses | Fannie, | | | | | | ANTONINATEHODA | Juancho Garcia, | | | | | | (non-ST | 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 62 | | | | | | elevated | [address] | | | | | | myocardial | [place], | | | | | | infarction) | [place] | | | | | | ([facility]) | Phone: | | | | | | Procedures | [phone] | | | | | | DME: Walker | Fax: | | | | | | | [phone] | | +--------+--------+ + + + + Evaluate & Treat (Routine) +--------+ + + + + + | Status | Reason | Specialty | Diagnoses / | Referred By | Referred To | | | | | Procedures | Contact | Contact | +--------+ + + + + + | Closed | Specialty | Cardiac | Diagnoses | Brsimbamann, | [address] | | | Services | Rehabilitatio | NSTEMI | Juancho Garcia, | SUSHIL | | | Required | n | (non-ST | CUSTOMER EXPERIENCE ANALYST 62 | REHABILITATIO | | | | | elevated | [address] | [address] | | | | | myocardial | [place], | [place] | | | | | infarction) | [place] | [place] | | | | | ([facility]) | Phone: | [phone] | | | | | | [phone] | Phone: | | | | | | Fax: | [phone] | | | | | | [phone] | Fax: | | | | | | | [phone] | +--------+ + + + + + Reason for Visit + + + | Reason | Comments | + + + | Chest Pain | | + + + Auth/Cert +--------+--------+ + + + + | Status | Reason | Specialty | Diagnoses / | Referred By | Referred To | | | | | Procedures | Contact | Contact | +--------+--------+ + + + + | | | | Diagnoses | | | | | | | Marijuana | | | | | | | abuse | | | | | | | Esophagitis | | | | | | | | | | | | | | Methamphetam | | | | | | | ine abuse | | | | | | | ([facility]) | | | | | | | NSTEMI | | | | | | | (non-ST | | | | | | | elevated | | | | | | | myocardial | | | | | | | infarction) | | | | | | | (HCC) Chest | | | | | | | pain | | | | | | | syndrome | | | | | | | Opiate | | | | | | | abuse, | | | | | | | continuous | | | | | | | ([facility]) | | | | | | | Non-intracta | | | | | | | ble cyclical | | | | | | | vomiting | | | | | | | with nausea | | | | | | | | | | | | | | NSTEMI | | | | | | | Procedures | | | | | | | CV Cor Angio | | | +--------+--------+ + + + + Encounter Details +--------+ + + + + | Date | Type | Department | Care Team | Description | +--------+ + + + + | 06/07/ | Hospital | [facility] | [place], | S/P CABG x 3 | | 2018 - | Encounter | [facility] | [address] | (Primary Dx); NSTEMI | | | | CARDIAC TRANSPLANT | [place] [id number] | (non-ST elevated | | 06/15/ | | [address] | [phone] | myocardial | | 2018 | | [place] | | infarction) (HCC); | | | | [address] | PefEmma chase MD | Methamphetamine | | | | [phone] | [address], | abuse; Opiate abuse, | | | | | [address] floor [place], | continuous; | | | | | [place] [address] | Marijuana abuse; | | | | | [phone] | Non-intractable | | | | | | cyclical vomiting | | | | | Michael Olson MD [address] | with nausea; | | | | | [address] | Esophagitis; Chest | | | | | FLOOR [place] | pain syndrome; ASHD | | | | | [address] | (arteriosclerotic | | | | | | heart disease); | | | | | Friendshuh, Kathie, | Essential | | | | | [address] | hypertension; | | | | | [address]VE [place] | Methamphetamine use; | | | | | [address] | Marijuana use; | | | | | | Troponin level | | | | | Hemanth Webster | elevated; Ischemic | | | | | MD Veronica [address] | cardiomyopathy; | | | | | [address] [place] | Chronic GERD; | | | | | [address] | Elevated troponin | | | | | | level; Stress | | | | | | hyperglycemia; | | | | | | Status post three | | | | | | vessel coronary | | | | | | artery bypass; | | | | | | Polysubstance abuse | +--------+ + + + + Social [...] + | Tobacco Cessation: Ready to Quit: Yes; Counseling Given: Yes | | Comments: states she is [...] + + + | Blood Pressure | 117/69 | 06/15/2018 3:42 PM | | | | | PDT | | + + + + + | Pulse | 75 | 06/15/2018 3:42 PM | | | | | PDT | | + + + + + | Temperature | 36.7 C (98 F) | 06/15/2018 3:42 PM | | | | | PDT | | + + + + + | Respiratory Rate | 18 | 06/15/2018 3:42 PM | | | | | PDT | | + + + + + | Oxygen Saturation | 94% | 06/15/2018 3:42 PM | | | | | PDT | | + + + + + | Inhaled Oxygen | - | - | | | Concentration | | | | + + + + + | Weight | 71.8 kg (158 lb 3.2 | 06/14/2018 8:00 PM | | | | oz) | PDT | | + + + + + | Height | 172.7 cm (5' 8") | 06/07/2018 9:29 AM | | | | | PDT | | + + + + + | Body Mass Index | 24.05 | 06/07/2018 9:29 AM | | | | | PDT [...] + + documented as of this encounter Discharge Summaries Suresh Segovia RN - 06/15/2018 3:57 PM SALVATORE Dalal saw the patient this 06/15/18 a nd confirmed discharge at 1200. ELÍAS Prince and ELÍAS Brown completed the discharge instructions . The patient will be getting their new RXs filled at home preferred pharmacy. Unable to ivy l prescriptions before pharmacy closed. Pharmacist notified and gave patient number for [facility] pharmacy to transfer medications in AM. Given night time pain medications prior to leaving . The AVS was reviewed with patient and family with no pending questions or concerns. All b elongings were collected from the room and sent with the family. The pt is discharging home with family in [place]. New FWW sent with patient. No further questions and all teaching demo nstrated back to RN. Plan for d/c at 1800 when family arrives. Juancho Dalal AR APPLICATION MANAGER - 06/15/2018 12:01 PM PDT [facility] Discharge Summary 06/15/2018 NAME/AGE/: Smitha Fletcher 62 y.o. female (1955) ADMISSION DATE: 06/07/2018 Attending Physician: Hemanth Webster MD Admitting Physician: Emma Lowe MD NOTE TO PROVIDERS: New medications on discharge must be refilled/managed by patient's respe ctive providers. Our office does not process refill requests. HOSPITAL COURSE: 4 Days Post-Op Hospital Day: 9 Discharge Plan: Percocet (#60) prescribed at discharge. Had been on 12-hour as well, but could not afford. I anticipate she'll need refill before her 2-week visit. 1. Follow-up with PCP recommended within 1 week. 2. Follow-up with surgery in 2 weeks to be sure her sternal dressing has been removed, that pain is being appropriately controlled. 3. Cardiology follow-up in 1 month. Brief Summary of Stay: Ms. Fletcher was admitted with chest pain that was found to be non ST-segment elevation myoc ardial infarction. She was taken for CABG on 06/11/2018 and has progressed well despite severe post-op pain secondary to history of drug use with high opioid needs. She has been receivin g 20 mg of 12-hour oxycodone + 15 mg PRN oxycodone several times per day, and also has lidoc mian patch near her sternal incision. Yesterday she was in severe pain, screaming loudly rima ugh for people on the other side of the hallway to hear; today, her pain is better-controlle d. Unfortunately, 12-hour oxycodone isn't covered by insurance, and she'll be discharged on oxycodone 10/325 tablets #60, but I anticipate she'll be taking 2-3 of these several times p er day. I had a long talk with Ms. Fletcher about the importance of daily showers and sternal precauti ons. She was recently released from senior care before arriving at the ER and our social services coordinator has confirmed that she is free to discharge home with family today. She will be staying with he r sister. I anticipate that pain control will be her biggest post-discharge concern and I've discharg ed her with a significant regimen of long- and short-acting narcotics. I've stressed the imp ortance of close PCP follow-up after discharge (scheduled for 06/23/2018), and I've schedule her to see us back for a post-op visit in 2 weeks so that we can monitor her progress closel y, be sure that her sternal tape has been removed, and that she is showering daily. Description of Procedure and Post-Op Course DATE OF PROCEDURE: 06/11/2018 PRE-OPERATIVE DIAGNOSIS: 1. Coronary artery disease 2. Hypertension 3. Hyperlipidemia 4. History of drug abuse PROCEDURE PERFORMED: 1. Coronary Artery Bypass Grafting x 3 , LITTLE-LAD, RSVG-OM2 and RSVG-PDA 2. Endoscopicleft greater saphenous vein harvest Surgeon(s) and Role: * Hemanth Webster MD - Primary * ELIJAH William - Assisting * Tisha Broussard PA-C - ELIJAH - Assisting Blood Products During Admission: RBCs: 1 unit(s). FFP: 0 unit(s). Platelets: 0 unit(s). Cryoprecipitate: 0 unit(s). Discharge Diagnoses: Active Hospital Problems Diagnosis Date Noted Status post three vessel coronary artery bypass 06/12/2018 Priority: High Chest pain syndrome 06/07/2018 Non-intractable vomiting with nausea 06/07/2018 Polysubstance abuse 06/07/2018 Chronic GERD 06/07/2018 Elevated troponin level 06/07/2018 Methamphetamine use 06/07/2018 ASHD (arteriosclerotic heart disease) 07/05/2013 Essential hypertension 07/05/2013 Tobacco abuse 07/05/2013 Ischemic cardiomyopathy 07/05/2013 Resolved Hospital Problems Diagnosis Date Noted Date Resolved Stress hyperglycemia 06/12/2018 06/14/2018 Last Vitals: Pulse: 76 BP: 124/80 Resp: 16 on SpO2: 93 % on room air Temp: 36.2 C (97.1 F) Last Weight: Wt Readings from Last 3 Encounters: 06/14/18 71.8 kg (158 lb 3.2 oz) 05/03/17 63.5 kg (140 lb) 12/26/16 68 kg (150 lb) Telemetry: normal sinus PHYSICAL EXAM Constitutional - Alert and oriented. Chronically ill-appearing but in no acute distress. HEENT - Normocephalic/atraumatic. Sclerea are white, conjunctivae are pink and moist. Nares are patent. Trachea is midline. Oral mucosa is pink and moist. Cardiovascular - Regular rate and rhythm with normal S1/S2. No murmur, rub, or gallop. Respiratory - Lung sounds are clear to auscultation bilaterally. Chest excursion is symmetr ical without the use of accessory muscles. GI - Possitive bowel sounds. Soft and non-tender. Extremities - Distal pulses are 2+. Distal extremities are pink and warm. No significant lo wer extremity edema. Neurologic - No focal deficits. Operative Sites: - Midsternal incision: Well-approximated without significant erythema or drainage. - Chest tube sites: Chest tube insertion sites are clean and dry. - EVH sites: clean, dry, and well-approximated Recent Labs 06/15/18 0923 06/13/18 0402 WBC 13.9* 11.8* HCT 28.8* 30.7* PLT 231 192 NA 136 137 K 4.6 4.6 CL 100 103 CO2 26 27 BUN 47* 27* CREA 1.47* 1.12* GLU 135* 146* CALCIUM 8.7 8.0* HgbA1c Values 06/10/2018 6:55 HgbA1c 5.5 Comment for HgbA1c at 6:55 on 06/10/2018: The ADA recommends A1C values of less than 7% as the goal for diabetic therapy. Discharge Medications: Discharge Medications New Medications Details docusate sodium 100 MG capsule Take 100 mg by mouth Twice daily as needed for Constipation. aka: COLACE ferrous sulfate 325 mg tablet Take 1 tablet by mouth 2 times daily (with breakfast & dinner). ibuprofen 600 MG tablet Take 1 tablet by mouth every 6 hours as needed for Pain. aka: ADVIL,MOTRIN LORazepam 1 mg tablet Take 1 tablet by mouth every 6 hours as needed for Anxiety. aka: ATIVAN oxyCODONE 30 mg ER abuse-deterrent tablet Take 1 tablet by mouth every 12 hours. aka: oxyCONTIN oxyCODONE-acetaminophen 10-325 mg per tablet Take 1 tablet by mouth every 6 hours as needed for Pain. aka: PERCOCET senna 8.6 mg tablet Take 2 tablets by mouth Twice daily as needed for Constipation. aka: SENJONNOT Changed Medications Details aspirin 325 MG EC tablet Take 1 tablet by mouth Daily. What changed: medication strength how much to take carvedilol 6.25 mg tablet Take 0.5 tablets by mouth 2 times daily (with breakfast & dinner). What changed: how much to take aka: COREG Unchanged Medications Details adult multivitamin with minerals/iron Tabs Take 1 tablet by mouth Daily. atorvaSTATin 40 mg tablet Take 1 tablet by mouth nightly. aka: LIPITOR calcium-vitamin D 500 mg-200 units per tablet Take 2 tablets by mouth 3 times daily (with meals). aka: OSCAL dicyclomine 20 MG tablet Take 1 tablet by mouth every 6 hours as needed (abdominal pain/cramping). aka: BENTYL ergocalciferol 50,000 units capsule Take 50,000 Units by mouth Once a week. aka: VITAMIN D-2 FLUoxetine 20 mg capsule Take 20 mg by mouth Daily. aka: PROzac hydrOXYzine hydrochloride 25 mg tablet Take 25 mg by mouth nightly as needed for Itching or Anxiety. aka: ATARAX ondansetron 8 mg disintegrating tablet Take 1 tablet by mouth every 8 hours as needed. aka: ZOFRAN ODT Polysaccharide Iron Complex 50 MG Caps Take 1 capsule by mouth 3 times daily (with meals). Q-PAP 500 mg tablet Generic drug: acetaminophen Take 500 mg by mouth every 6 hours as needed for Pain. QUEtiapine 100 mg tablet Take 100 mg by mouth nightly. aka: SEROquel Discontinued Medications lisinopril 20 mg tablet aka: PRINIVIL, ZESTRIL Discharged Condition: good Consults: - Diabetic services for blood glucose management. - Physical and occupational therapy for post-op rehab. - [place] [facility]. Disposition: Home with family. Patient was advised to call our office or their construction assistant with any questions. Follow-Up: Follow-up Information SALVATORE Ventura. Go on 06/23/2018. Specialty: Nurse Practitioner Why: Hospital follow up scheduled at 11:[address] Roa Contact information: [address] [facility] [phone] Hemanth Webster MD. Schedule an appointment as soon as possible for a visit on 06/29/2018 . Specialty: Cardiothoracic Surgery Why: 11:30 AM Contact information: [address], [facility] [address] [facility] [place] [facility] [place] [address] Schedule an appointment as soon as possible for a visit with [facility]. Why: Please call to schedule your 1 month follow-up with cardiology. Contact information: [address] [place] [phone] Time spent on discharge planning: greater than 30 minutes CABG Checklist ACEI/ARB/ARNI prescribed: No - Hypotension Aspirin prescribed: Not addressed Beta mateus (evidence-based) prescribed: Yes Beta mateus prescribed: N/A - LV EF is less than 41% High intensity statin prescribed: Yes Referral to cardiac rehab: Yes Tobacco cessation counseling provided: Yes [facility] [address] [place] [id number] Portions of this chart may have been created with [employer] voice recognition software. Occasi onal wrong-word or sound-alike substitutions may have occurred due to the inherent meyers itations of voice recognition software. Please read the chart carefully and recognize, using context, where these substitutions have occurred. Patient Care Team: SALVATORE Ventura as PCP - General (Nurse Practitioner) Mani Schneider MD as Physician (Cardiology) documented in this encounter Discharge Instructions Instructions Juancho Greco ARNP - 06/15/2018 Who to Call: 1. For swelling in your legs, or feeling more short of breath, please call Luis Alfredo estrada at [phone]. 2. For problems or concerns with your incision or your chest, please call [facility] (Surgery) at [phone]. After Coronary Artery Bypass Surgery When you leave the hospital after coronary artery bypass surgery, you ll be given dischar ge instructions. These tell you how to take care of yourself as you recover. Staying active will help speed recovery, so do as much as you comfortably can. To protect your healing nikhil stbone, though, you will likely need some help from others. Getting Back Into Your Routine Follow your doctor s guidelines. Here are some general time frames: Showering. Unless you re told otherwise, you can shower once you get home. Don t use very hot water (it can make you dizzy). Have someone nearby in case you need help. Don t take a tub bath until your doctor says it s okay. Daily activities. Resume activities as you feel comfortable doing so. Within a few days you can return to light activities, such as cooking. Don t do anything strenuous, such as mowing the lawn or vacuuming, for at least 6 weeks. Driving. Don t drive until your doctor says you can. This will be around 3 6 weeks a fter surgery. This is important for many reasons. Soreness or stiffness may make driving unc omfortable. And you shouldn t drive when you re taking pain medication. Work. How soon you can return to work depends on your job. You may be told you can retur n to work 3 12 weeks after surgery. Sexual intercourse. Avoid sex for 4 6 weeks. When you do have sex, use positions that don t strain your breastbone. Talk to your doctor if you re concerned. Caring for Your Incisions Your incisions may be bruised, itchy, numb, and sore. After a shower, pat them dry (don t rub). Don t use lotion or powder. Be sure to check the incisions every day. This way you ll see any signs of problems early. As Your Breastbone Heals Don t be surprised if you feel sharp pains in your chest as your breastbone heals. You ma y also notice that changes in the weather make your incision hurt. These pains feel differen t from angina and are most likely not signs of a heart attack. If you have questions about w hat you re feeling, or if your pain isn t managed by medication, call your healthcare pr fuad. [phone] Darrell Gallegos, [address] [place] [address], [place] [address]. All rights reserve d. This information is not intended as a substitute for professional medical care. Always fo llow your healthcare professional's instructions. documented in this encounter Medications at Time of Discharge + + + +---------+ + + | Medication | Sig | Dispensed | Refills | Start | End Date | | | | | | Date | | + + + +---------+ + + | calcium-vitamin D | Take 2 tablets by | 90 | 3 | 08/27/20 | | | (OSCAL) 500 mg-200 | mouth 3 times daily | tablet | | 16 | | | units per tablet | (with meals). | | | | | + + + +---------+ + + | ferrous sulfate | Take 1 tablet by | 60 | 0 | 06/15/20 | | | 325 mg tablet | mouth 2 times daily | tablet | | 18 | | | | (with breakfast & | [...] + + + +---------+ + + | LORazepam (ATIVAN) | Take 1 tablet by | 20 | 0 | 06/15/20 | | | 1 mg tablet | mouth every 6 hours | tablet | | 18 | | | | as needed for | | | | | | | Anxiety. | | | | | + + + +---------+ + + | Polysaccharide | Take 1 capsule by | 90 | 2 | 08/27/20 | | | Iron Complex 50 MG | mouth 3 times daily | capsule | | 16 | | | CAPS | (with meals). | | | | | + + + +---------+ + + | acetaminophen | Take 500 mg by mouth | | 0 | | | | (Q-PAP) 500 mg | every 6 hours as | | | | 8 | | tablet | needed for Pain. | | | | | + + + +---------+ + + | aspirin 325 MG EC | Take 1 tablet by | 30 | 0 | 06/16/20 | | | tablet | mouth Daily. | tablet | | 18 | 8 | + + + +---------+ + + | atorvaSTATin | Take 1 tablet by | 30 | 0 | 06/15/20 | | | (LIPITOR) 40 mg | mouth nightly. | tablet | | 18 | 8 | | tablet | | | | | | + + + +---------+ + + | carvedilol (COREG) | Take 0.5 tablets by | 30 | 0 | 09/10/20 | | | 6.25 mg tablet | mouth 2 times daily | tablet | | 18 | 8 | | | (with breakfast & | | | | | | | dinner). | | | | | + + + +---------+ + + | dicyclomine | Take 1 tablet by | 20 | 0 | 05/03/20 | | | (BENTYL) 20 MG | mouth every 6 hours | tablet | | 17 | 8 | | tablet | as needed (abdominal | | | | | | | pain/cramping). | | | | | + + + +---------+ + + | docusate sodium | Take 100 mg by mouth | 30 | 0 | 06/15/20 | | | (COLACE) 100 MG | Twice daily as | capsule | | 18 | 8 | | capsule | needed for | | | | | | | Constipation. | | | | | + + + +---------+ + + | ergocalciferol | Take 50,000 Units by | | 0 | | | | (VITAMIN D-2) 50,000 | mouth Once a week. | | | | 8 | | units capsule | | | | | | + + + +---------+ + + | hydrOXYzine | Take 25 mg by mouth | | 0 | | | | hydrochloride | nightly as needed | | | | 8 | | (ATARAX) 25 mg | for Itching or | | | | | | tablet | Anxiety. | | | | | + + + +---------+ + + | ibuprofen | Take 1 tablet by | 60 | 0 | 06/15/20 | | | (ADVIL,MOTRIN) 600 | mouth every 6 hours | tablet | | 18 | 9 | | MG tablet | as needed for Pain. | | | | | + + + +---------+ + + | Multiple | Take 1 tablet by | 90 each | 3 | 08/27/20 | | | Vitamins-Minerals | mouth Daily. | | | 16 | 8 | | (ADULT MULTIVITAMIN | | | | | | | WITH MINERALS/IRON) | | | | | | | TABS | | | | | | + + + +---------+ + + | ondansetron | Take 1 tablet by | 20 | 0 | 05/03/20 | | | (ZOFRAN ODT) 8 mg | mouth every 8 hours | tablet | | 17 | 8 | | disintegrating | as needed. | | | | | | tablet | | | | | | + + + +---------+ + + | oxyCODONE | Take 1 tablet by | 28 | 0 | 06/15/20 | | | (OXYCONTIN) 30 mg ER | mouth every 12 | tablet | | 18 | 8 | | abuse-deterrent | hours. | | | | | | tablet | | | | | | + + + +---------+ + + | | Take 1 tablet by | 60 | 0 | 06/15/20 | | | oxyCODONE-acetaminop | mouth every 6 hours | tablet | | 18 | 8 | | hen (PERCOCET) | as needed for Pain. | | | | | | 10-325 mg per | | | | | | | tabletIndications: | | | | | | | NSTEMI (non-ST | | | | | | | elevated myocardial | | | | | | | infarction) ([facility]), | | | | | | | Polysubstance abuse | | | | | | | ([facility]) | | | | | | + + + +---------+ + + | QUEtiapine | Take 100 mg by mouth | | 0 | | | | (SEROQUEL) 100 mg | nightly. | | | | 9 | | tablet | | | | | | + + + +---------+ + + | senna (SENOKOT) | Take 2 tablets by | 40 | 0 | 06/15/20 | | | 8.6 mg tablet | mouth Twice daily | tablet | | 18 | 8 | | | as needed for | | | | | | | Constipation. | | | | | + + + +---------+ + + documented as of this encounter Progress Notes Sherrie Sultana MSW - 06/15/2018 1:14 PM PDTSOCIAL WORK PLAN: Discharge with friend INTERVENTION: MD order to verify pt's disposition at discharge acknowledged. RIZWANA met with pt at bedside. Pt states she was brought to [facility] by [facility] but states she is no l onger in custody. No guards at the door. SW Head Of Training And Development suggested SW contact senior care to confirm. SW spoke with [facility] who confirms pt was released. SW spoke with pt regarding discharge plan. Pt plans to discharge to friend's home. SW available should further discharg e planning needs arise. Keith Lopez MD - 06/15/2018 8:45 AM PDT [facility] PATIENT NAME: Smitha Fletcher : 1955: AGE: 62 y.o. ADMISSION DATE: 06/07/2018 Hospital Day: Hospital Day: 9 Code Status: Full Code DATE OF SERVICE: 06/15/2018 Kylie Shields PA-C CARDIOLOGY DAILY PROGRESS NOTE PRIMARY HOSPITAL PROBLEM: ASHD (arteriosclerotic heart disease) CHIEF COMPLAINT: coronary artery disease, NSTEMI, hyperlipidemia SUBJECTIVE: No complaints ASSESSMENT * ASHD (arteriosclerotic heart disease) Assessment & Plan Post operative day #4 status post CABGx3. LITTLE to LAD, SVG to OM2, SVG to PDA. Dr. Webster . Complains of pain. EF 35% preOP to 50% post OP Blood pressure and rhythm well controlled. CT in place and draining. Normal sinus rhythm 95 On aspirin, statin, beta mateus Dyslipidemia Assessment & Plan On statin Ischemic cardiomyopathy Assessment & Plan EF PreOP 35% Post OP 50% On beta mateus Essential hypertension Assessment & Plan Hypotensive to Normotensive on beta mateus alone. Continue at current beta mateus dose. PLAN 1. No change 2. Follow up requested SUBJECTIVE DATA REVIEW OF SYSTEMS: CV: negative Resp: no cough, shortness of breath, or wheezing GI: negative Neuro: no TIA or stroke-like symptoms OBJECTIVE DATA MEDICATIONS: Scheduled PRN acetaminophen 650 mg Oral 4 times per day aspirin 324 mg Oral Daily atorvaSTATin 40 mg Oral Nightly carvedilol 3.125 mg Oral BID WC ferrous sulfate 325 mg Oral BID WC ibuprofen 600 mg Oral TID WC lidocaine 1 patch Transdermal Daily oxyCODONE 20 mg Oral 2 times per day albumin, albuterol, aspirin, bisacodyl, calcium carbonate, dextrose, docusate sodium, ibup rofen, LORazepam, magnesium hydroxide, menthol throat lozenges, metoclopramide, metocloprami de, ondansetron, ondansetron, oxyCODONE, phenol, polyethylene glycol, senna, traZODone VITAL SIGNS: Vitals Current Average / Min / Max Temp 36.2 C (97.1 F) Temp Min: 36.1 C (96.9 F) Max: 37.2 C (98.9 F) BP 124/80 BP Min: 96/60 Max: 124/80 HR 76 Pulse Av Min: 73 Max: 79 RR 16 Resp Av.7 Min: 16 Max: 18 Sats 93 % on 2L/min room air Weight 71.8 kg (158 lb 3.2 oz) Admit: 68 kg (150 lb) INTAKE/OUTPUT Intake/Output Summary (Last 24 hours) at 06/15/18 0855 Last data filed at 06/15/18 0800 Gross per 24 hour Intake 840 ml Output 450 ml Net 390 ml PHYSICAL EXAM Admit Weight: Weight: 68 kg (150 lb) Current weight: Weight: 71.8 kg (158 lb 3.2 oz) Body mass index is 24.05 kg/m. GENERAL: Alert and Oriented x 3 in no apparent distress. NECK: Supple. No JVD. CHEST: Good inspiratory effort with no crackles, rhonchi, or wheezes. CARDIAC: regular rate and rhythm, no murmur ABDOMEN: Soft, non-tender, non distended with normal, active bowel sounds. EXTREMITIES: no significant edema. No venous insufficiency. PULSES: Right: DP 2+, PT 2+ Left: DP 2+, PT 2+ Intact distal pulses and 2+ bilaterally, NEUROLOGIC Neurologically intact SKIN: No rashes or skin breakdown. Sternum stable. Wound dressed LABS Recent Labs 06/13/18 0402 WBC 11.8* HGB 10.3* HCT 30.7* PLT 192 NA 137 K 4.6 CL 103 CO2 27 BUN 27* CREA 1.12* GLU 146* CALCIUM 8.0* Lab Results Component Value Date HBA1C 5.5 06/10/2018 I have personally reviewed and interpreted the above most recent data. TELEMETRY: normal sinus 70 Reviewed on Telemetry 06/15/2018 IMAGING: Xr Chest 2 Vws Result Date: 06/15/2018 CHEST TWO VIEWS CLINICAL INFORMATION: Follow up effusion. COMPARISON: 06/13/2018. IMPRESSION: 1. Mediastinal and chest drains have been removed. 2. There is improved aeration bilaterall y. Decreased perihilar reticular and ground-glass opacities. Patchy bibasilar atelectasis and suspect minimal pleural effusions. 3. Cardiomediastinal contours are stable. 4. No pneum othorax. Signed by: MD Upton Paula Sign Date/Time: 06/15/2018 6:31 AM Signed by: Kylie Shields PA-C 06/15/2018, 8:55 Attending Addendum: Feels okay, waiting for family to come pick her up My pertinent physical exam findings include: GEN: NAD Neck: No JVD Chest: Normal respiratory effort, bilaterally clear to auscultation. Heart: Regular rate and rhythm, No murmurs, rubs or gallops. Ext: No cyanosis or edema. Assessment: 1. CABG 3 on 06/11, doing well 2. EF 50% postop Plan: 1. Home today okay with cardiology on present medications including aspirin, statin, carve dilol. 2. Follow-up requested. Keith Harp MD, [facility] Portions of this chart were created with [employer] voice recognition software. Occasional wro ng-word or "sound-alike" substitutions may have occurred due to the inherent limitations of voice recognition software. Please read the chart carefully and recognize, using context, w here those substitutions have occurred. eonte Lee MD - 06/15/2018 7:15 AM PDTFormatting of this no te might be different from the original. [facility] Pt. Name/Age/: Smitha Fletcher 62 y.o. 1955 Med. Record Number: [id number] Date of admission: 06/07/2018 POD # 4 Procedure: CABG X 3 Surgeon: Eleanor Subjective New complaints: poor sternal precautions. No c/o this morning. Acknowledges that came from the [facility]. Not sure where she is going. No officers escorting so unsure what plan is. SWS consulted yesterday. Objective: Temp: 36.2 C (97.2 F) BP: 109/62 Pulse: 78 Resp: 18 SpO2: 90 % on RA Min/Max Temp past 24 hours:Temp Av.5 C (97.7 F) Min: 36.1 C (96.9 F) Max: 3 7.2 C (98.9 F) Intake/Output Summary (Last 24 hours) at 06/15/18 0715 Last data filed at 06/15/18 0644 Gross per 24 hour Intake 1200 ml Output 450 ml Net 750 ml Wt. Admission: Weight: 68 kg (150 lb) Wt. Current: Weight: 71.8 kg (158 lb 3.2 oz) Neuro: A&Ox3. Heart: normal rate and regular rhythm Respiratory:decreased breath sounds and rhonchi bilaterally Sternum: Stable Abdomen: soft, non-tender, without masses or organomegaly Extremities: 1+ pitting Wounds: well approximated incision:chest and leg Rhythm Strip: normal sinus Infusions: Active Medications: acetaminophen 650 mg Oral 4 times per day aspirin 324 mg Oral Daily atorvaSTATin 40 mg Oral Nightly carvedilol 3.125 mg Oral BID WC ferrous sulfate 325 mg Oral BID WC ibuprofen 600 mg Oral TID WC lidocaine 1 patch Transdermal Daily oxyCODONE 20 mg Oral 2 times per day Imaging: Xr Chest 2 Vws Result Date: 06/15/2018 CHEST TWO VIEWS CLINICAL INFORMATION: Follow up effusion. COMPARISON: 06/13/2018. IMPRESSION: 1. Mediastinal and chest drains have been removed. 2. There is improved aeration bilaterall y. Decreased perihilar reticular and ground-glass opacities. Patchy bibasilar atelectasis and suspect minimal pleural effusions. 3. Cardiomediastinal contours are stable. 4. No pneum othorax. Signed by: MD Upton Paula Sign Date/Time: 06/15/2018 6:31 AM Labs: Recent Labs 06/13/18 0402 WBC 11.8* HGB 10.3* HCT 30.7* PLT 192 NA 137 K 4.6 CL 103 CO2 27 BUN 27* CREA 1.12* GLU 146* CALCIUM 8.0* No results found for: CHOL, HDL, TRIG Diagnostic studies: Available data and images were reviewed personally. See reports. Signi ficant results and findings are addressed here or in the Assessment and Plan. Assessment and Plan: S/P: CABG X 3. D/C PW. Coronary Artery Disease:On BBlocker, ASA, Statin. EF 37. Pain. Will continue multiple modality. Continue lidocaine patches, narcotics ,Tylenol, NS AID. Cardiac Rhythm: sinus rhythm, monitor Progress pt care with Cardiopulmonary rehab. Wean O2, IS/deep breathing q1hr while awake, a mbulate and progress. Volume overload. Lasix again today. Also when to give again due to her reasonably higher in chest tube output yesterday. Chest tubes removed yesterday. Which is significantly help ed her pain. So will recheck a chest x-ray to make sure she isn't developing an effusion to glover. Acute blood loss anemia:monitor, iron Glucose management: Per DM team. D/C unsure with the patient is going. SWS to arrange/determine dispo. Ready for D/C now. Problem List Patient Active Problem List Diagnosis Essential hypertension Ischemic cardiomyopathy Tobacco abuse ASHD (arteriosclerotic heart disease) Dyslipidemia Cellulitis and abscess of hand, except fingers [...] syndrome Non-intractable vomiting with nausea Polysubstance abuse Chronic GERD Elevated troponin level Methamphetamine use Status post three vessel coronary artery bypass Electronically signed by: Hector Decker PA-C Cardiothoracic Surgery [facility] [address], [address] [place] [address] 06/15/2018 7:15 [facility] Agree with detailed plan nicely outlined by Hector shley Graves MSW - 06/14/2018 1:05 PM PDTSOCIAL WORK PLAN: TBD INTERVENTION: SW acknowledged order for return to senior care. Pt came from senior care per chart review and may have to go back there upon DC. SW will continue to follow for DC planning. Frandy Estrada ARNP - 06/14/2018 9:11 AM PDTBlood Glucose log reviewed. Patient is stable, with control led blood glucose. Not requiring insulin Diabetes Service will sign off. Medication Reconciliation for diabetes medications has been completed. Please contact us at [phone] should the need arise. Thank you for allowing us to be involved in this patient's care. Electronically signed by: SALVATORE Elias 06/14/2018 9:11 Rip Fontanez MD - 06/14/2018 8:57 AM PDT Addendum: I have reviewed the note below, personally reviewed the available laboratory and imaging st udies and examined the patient. I agree with the assessment below, with the following additi on. Much improved after chest tube removal. Agree with Hector's plan. Electronically signed by: Rip Yao M.D. CardioThoracic Surgery [facility] 06/14/2018 9:23 [facility] Pt. Name/Age/: Smitha Fletcher 62 y.o. 1955 Med. Record Number: [id number] Date of admission: 06/07/2018 POD # 3 Procedure: CABG X 3 Surgeon: Webster Subjective New complaints: Much different person this morning. Not as much pain since chest tubes rem magy. Rhythm is stable remove wires today. Objective: Temp: 36.5 C (97.7 F) BP: 101/57 Pulse: 81 Resp: 16 SpO2: 91 % on RA Min/Max Temp past 24 hours:Temp Av.8 C (98.2 F) Min: 36.4 C (97.5 F) Max: 3 7.3 C (99.2 F) Intake/Output Summary (Last 24 hours) at 06/14/18 0859 Last data filed at 06/13/18 2000 Gross per 24 hour Intake 760 ml Output 250 ml Net 510 ml Wt. Admission: Weight: 68 kg (150 lb) Wt. Current: Weight: 65.3 kg (143 lb 15.4 oz) Neuro: A&Ox3. Heart: normal rate and regular rhythm Respiratory:decreased breath sounds and rhonchi bilaterally Sternum: Stable Abdomen: soft, non-tender, without masses or organomegaly Extremities: 1+ pitting Wounds: well approximated incision:chest and leg Rhythm Strip: normal sinus Infusions: Active Medications: acetaminophen 650 mg Oral 4 times per day aspirin 324 mg Oral Daily atorvaSTATin 40 mg Oral Nightly carvedilol 3.125 mg Oral BID WC ibuprofen 600 mg Oral TID WC insulin lispro 0-6 Units Subcutaneous 5x Daily AC, HS and 3AM lidocaine 1 patch Transdermal Daily oxyCODONE 20 mg Oral 2 times per day Imaging: Xr Chest Ap Portable Result Date: 06/13/2018 CHEST PORTABLE ONE VIEW CLINICAL INFORMATION: Chest tube placement. COMPARISON: X-ray yeste rday. FINDINGS/IMPRESSION: 1. Right IJ central line has been removed. The remaining lines a nd support devices are unchanged in position. 2. Low lung volumes. Increased bibasilar airs pace consolidation or atelectasis, and increased bilateral perihilar hazy atelectasis or alexey ma. 3. Cardiomediastinal contours are stable. 4. No pneumothorax. Signed by: MD Won, Ashutosh mendez Sign Date/Time: 06/13/2018 6:46 AM Labs: Recent Labs 06/13/18 0402 06/12/18 0312 06/11/18 2301 06/11/18 1637 06/11/18 1456 WBC 11.8* 12.1* -- -- 16.3* -- -- HGB 10.3* 10.7* -- -- 11.0* < > -- HCT 30.7* 31.9* -- -- 32.0* -- -- PLT 192 244 -- -- 228 -- 208 NA 137 146* -- -- 146* < > -- K 4.6 4.8 5.4* < > 4.3 < > -- CL 103 111* -- -- 109 -- -- CO2 27 28 -- -- 28 -- -- BUN 27* 22 -- -- 18 -- -- CREA 1.12* 1.14* -- -- 1.07* -- -- GLU 146* 96 112* -- 120* < > -- CALCIUM 8.0* 8.5 -- -- 9.5 -- -- INR -- -- -- -- 1.2* -- 1.4* PT -- -- -- -- -- -- 17.4* PTT -- -- -- -- 32 -- -- < > = values in this interval not displayed. No results found for: CHOL, HDL, TRIG Diagnostic studies: Available data and images were reviewed personally. See reports. Signi ficant results and findings are addressed here or in the Assessment and Plan. Assessment and Plan: S/P: CABG X 3. D/C PW. Coronary Artery Disease:On BBlocker, ASA, Statin. EF 37. Pain. Will continue multiple modality. Continue lidocaine patches, narcotics ,Tylenol, NS AID. Cardiac Rhythm: sinus rhythm, monitor Progress pt care with Cardiopulmonary rehab. Wean O2, IS/deep breathing q1hr while awake, a mbulate and progress. Volume overload. Lasix again today. Also when to give again due to her reasonably higher in chest tube output yesterday. Chest tubes removed yesterday. Which is significantly help ed her pain. So will recheck a chest x-ray to make sure she isn't developing an effusion to glover. Acute blood loss anemia:monitor, iron Glucose management: Per DM team. D/C unsure with the patient is going. Willl have social services coordinator start arrangements. Problem List Patient Active Problem List Diagnosis Essential hypertension Ischemic cardiomyopathy Tobacco abuse ASHD (arteriosclerotic heart disease) Dyslipidemia Cellulitis and abscess of hand, except fingers [...] syndrome Non-intractable vomiting with nausea Polysubstance abuse Chronic GERD Elevated troponin level Methamphetamine use Stress hyperglycemia Status post three vessel coronary artery bypass Electronically signed by: Hector Decker PA-C Cardiothoracic Surgery [facility] [address], [address] [place] [address] 06/14/2018 8:59 [facility] Dave Hill MD - 06/14/2018 8:07 AM PDT [facility] PATIENT NAME: Smitha Fletcher : 1955: AGE: 62 y.o. ADMISSION DATE: 06/07/2018 Hospital Day: Hospital Day: 8 Code Status: Full Code DATE OF SERVICE: 06/14/2018 Dave Bansal MD/ Kylie Shields PA-C CARDIOLOGY DAILY PROGRESS NOTE [facility] PROBLEM: ASHD (arteriosclerotic heart disease) CHIEF COMPLAINT: NSTEMI, coronary artery disease, hyperlipidemia, tobacco use SUBJECTIVE: Much better today, awake and alert with no complaints. ASSESSMENT * ASHD (arteriosclerotic heart disease) Assessment & Plan Post operative day #3 status post CABGx3. LITTLE to LAD, SVG to OM2, SVG to PDA. Dr. Webster . Complains of pain. EF 35% preOP to 50% post OP Blood pressure and rhythm under good control CT in place and draining. Normal sinus rhythm 95 On aspirin, statin, beta mateus Dyslipidemia Assessment & Plan On statin Ischemic cardiomyopathy Assessment & Plan EF PreOP 35% Post OP 50% On beta mateus Essential hypertension Assessment & Plan Hypotensive to Normotensive on beta mateus alone. Continue at current beta mateus dose PLAN 1. No change to medication. Coreg dose was decreased last night. SUBJECTIVE DATA REVIEW OF SYSTEMS: CV: negative Resp: negative GI: negative Neuro: no TIA or stroke-like symptoms OBJECTIVE DATA MEDICATIONS: Scheduled PRN acetaminophen 650 mg Oral 4 times per day aspirin 324 mg Oral Daily atorvaSTATin 40 mg Oral Nightly carvedilol 3.125 mg Oral BID WC ferrous sulfate 325 mg Oral BID WC ibuprofen 600 mg Oral TID WC lidocaine 1 patch Transdermal Daily oxyCODONE 20 mg Oral 2 times per day albumin, albuterol, aspirin, bisacodyl, calcium carbonate, dextrose, docusate sodium, ibup rofen, LORazepam, magnesium hydroxide, menthol throat lozenges, metoclopramide, metocloprami de, ondansetron, ondansetron, oxyCODONE, phenol, polyethylene glycol, senna, traZODone VITAL SIGNS: Vitals Current Average / Min / Max Temp 36.4 C (97.6 F) Temp Min: 36.4 C (97.6 F) Max: 37.3 C (99.2 F) BP 96/60 BP Min: 87/54 Max: 101/57 HR 79 Pulse Av.7 Min: 79 Max: 92 RR 16 Resp Av Min: 14 Max: 18 Sats 91 % on 2L/min nasal cannula Weight 65.3 kg (143 lb 15.4 oz) Admit: 68 kg (150 lb) INTAKE/OUTPUT Intake/Output Summary (Last 24 hours) at 06/14/18 1417 Last data filed at 06/13/181999 Gross per 24 hour Intake 760 ml Output 0 ml Net 760 ml PHYSICAL EXAM Admit Weight: Weight: 68 kg (150 lb) Current weight: Weight: 65.3 kg (143 lb 15.4 oz) Body mass index is 21.89 kg/m. GENERAL: Alert and Oriented x 3 in no apparent distress. NECK: Supple. No JVD. CHEST: Good inspiratory effort with no crackles, rhonchi, or wheezes. CARDIAC: regular rate and rhythm, no murmur ABDOMEN: Soft, non-tender, non distended with normal, active bowel sounds. EXTREMITIES: no significant edema. No venous insufficiency. PULSES: Right: DP 2+, PT 2+ Left: DP 2+, PT 2+ Intact distal pulses and 2+ bilaterally, NEUROLOGIC Neurologically intact SKIN: No rashes or skin breakdown. LABS Recent Labs 06/13/18 0402 06/12/18 0312 06/11/18 2301 06/11/18 1637 06/11/18 1456 WBC 11.8* 12.1* -- -- 16.3* -- -- HGB 10.3* 10.7* -- -- 11.0* < > -- HCT 30.7* 31.9* -- -- 32.0* -- -- PLT 192 244 -- -- 228 -- 208 NA 137 146* -- -- 146* < > -- K 4.6 4.8 5.4* < > 4.3 < > -- CL 103 111* -- -- 109 -- -- CO2 27 28 -- -- 28 -- -- BUN 27* 22 -- -- 18 -- -- CREA 1.12* 1.14* -- -- 1.07* -- -- GLU 146* 96 112* -- 120* < > -- CALCIUM 8.0* 8.5 -- -- 9.5 -- -- INR -- -- -- -- 1.2* -- 1.4* PT -- -- -- -- -- -- 17.4* PTT -- -- -- -- 32 -- -- < > = values in this interval not displayed. Lab Results Component Value Date HBA1C 5.5 06/10/2018 I have personally reviewed and interpreted the above most recent data. TELEMETRY: normal sinus 80 Reviewed on Telemetry 06/14/2018 IMAGING: Xr Chest Ap Portable Result Date: 06/13/2018 CHEST PORTABLE ONE VIEW CLINICAL INFORMATION: Chest tube placement. COMPARISON: X-ray yeste rday. FINDINGS/IMPRESSION: 1. Right IJ central line has been removed. The remaining lines a nd support devices are unchanged in position. 2. Low lung volumes. Increased bibasilar airs pace consolidation or atelectasis, and increased bilateral perihilar hazy atelectasis or alexey ma. 3. Cardiomediastinal contours are stable. 4. No pneumothorax. Signed by: MD Upton P aula Sign Date/Time: 06/13/2018 6:46 AM Signed by: Dave Bansal MD 06/14/2018, 14:17 Portions of this chart were created with [employer] voice recognition software. Occasional wro ng-word or "sound-alike" substitutions may have occurred due to the inherent limitations of voice recognition software. Please read the chart carefully and recognize, using context, w here those substitutions have occurred.Electronically signed by Dave Bansal MD at 0 06/14/2018 2:17 PM Frandy Estrada ARNP - 06/13/2018 2:37 PM PDT Blood Sugar Management Progress Note Patient: Smitha Fletcher Date of : 1955 Admit Date: 06/07/2018 Date of Service: 06/13/2018 PCP: Yolanda Lee Admitting Physician: Emma Lowe MD Code Status: Full Code Provider Requesting Consult: Dr. Webster Reason for Consult/Diabetes Chief Complaint: Hospital blood glucose management Brief Overview of Hospital Course: 62 y.o. female admitted 06/07/2018 by Emma Lowe MD for CAD. She underwent CABG x 4 06/11 and is doing well, stable post op. Having some over deyanira tion due to narcotics. Per RN; she will be discharging from [facility] to senior care that she came from. Assessment for glucose management: 1. Stress hyperglycemia, improving but not resolved. Continue same therapy Labs reviewed personally, BG range over the last 24 hours Renal function "stable But reduced function compared to admit. Plan: Basal insulin: none Nutritional insulin: Humalog none Corrective insulin: Humalog correction scale 1 Continue to assess BG and intake, modify insulin doses as needed. Discharge Recommendations: No medications for diabetes at discharge Recent Labs Lab 06/13/18 1120 06/13/18 0625 06/13/18 0402 06/13/18 0242 06/12/18 2200 06/12/18 1641 06/12/18 1602 06/12/18 1227 06/12/18 0659 06/12/18 0600 06/12/18 0508 06/12/18 0312 06/11/18 2301 06/11/18 1637 POCGLU 131* 159* -- 152* 172* 132* 126* 177* 98 100* 87 < > -- < > -- < > -- GLU -- -- 146* -- -- -- -- -- -- -- -- -- 96 -- 112* -- 120* CREA -- -- 1.12* -- -- -- -- -- -- -- -- -- 1.14* -- -- -- 1.07 * EGFR -- -- 52* -- -- -- -- -- -- -- -- -- 51* -- -- -- 55* < > = values in this interval not displayed. Lab Results Component Value Date HBA1C 5.5 06/10/2018 Subjective: Interval Diabetes History: Blood glucose log reviewed. Stable. See above. Modifying factors: stress of hospitalization and surgery Present symptoms related to BG's: none Nutritional: cardiac diet. Robust appetite Home diabetes medications: none Review of systems: General: Groggy. Will answer questions. Cardiovascular: Denies angina Chest: Pain controlled Pulmonary: Denies dyspnea. Remains on oxygen GI: Denies n/v Renal/Uro no new symptoms Neuro: Sedated otherwise no focal symptoms Musculoskeletal: No new focal symptoms Endo: no symptoms of hyper or hypoglycemia Objective: Vital Signs 06/11 700 - 06/12 0659 06/12 700 - 06/13 0659 06/13 700 - 06/13 1452 Most Rec ent Temp (C) 36.2 - 37.4 36.3 - 37.5 36.3 - 36.4 36.4 (97.5) Pulse 54 - 80 72 - 98 88 - 92 88 Resp 11 - 30 15 - 26 14 - 20 14 BP (!)77/55 - (!) 132/95 100/67 - 132/67 (!)82/46 - 102/56 (!) 82/46 Arterial Line BP 108/56 - 118/60 Arterial Line BP 2 92/52 - 154/76 109/54 - 126/59 SpO2 (%) 95 - 100 (!)85 - 97 90 - 95 92 Weight (kg) 65.3 Body mass index is 21.89 kg/m. I/O last 3 completed shifts: In: 3742.5 [P.O.:2600; I.V.:1142.5] Out: 2695 [Urine:1800; Chest Tube:895] General appearance - groggy. no apparent distress/ Mental status - Answers questions appropriately Lungs - Normal effort, lungs diminished Cardiovascular - Normal rate, regular rhythm, no edema Abdomen - soft, non-distended, hypoactive BTs Musculoskeletal - No focal weakness Skin - pink. Surgical sites asymptomatic. Selected Labs/Studies: Recent Labs Lab 06/13/18 0402 06/12/18 0312 06/11/18 1637 06/11/18 1525 09/03/23 [id number]/11/[id number] WBC 11.8* 12.1* 16.3* -- -- -- 7.3 HGB 10.3* 10.7* 11.0* 8.2* -- < > 12.6 HCT 30.7* 31.9* 32.0* -- -- -- 37.4 PLT 192 244 228 -- 208 -- 349 < > = values in this interval not displayed. Recent Labs Lab 06/13/18 0402 06/12/1831106/11/18 2301 06/11/18 19506/11/18 16306/11/18 16306/11/18 1525 06/11/18 1450 06/11/18 1035 06/11/1831106/10/18 17206/09/18 0307 NA 137 146* -- -- 146* -- 142 141 -- 134* 139 139 137 K 4.6 4.8 5.4* 3.9 4.3 -- 5.2* 5.3* < > 4.7 4.3 4.5 4.6 CL 103 111* -- -- 109 -- -- -- -- -- 106 106 108 CO2 27 28 -- -- 28 -- -- -- -- -- 24 25 22 ANIONGAP 7 7 -- -- 9 -- -- -- -- -- 9 8 7 BUN 27* 22 -- -- 18 -- -- -- -- -- 27* 25 14 CREA 1.12* 1.14* -- -- 1.07* -- -- -- -- -- 0.88 0.91 0.82 EGFR 52* 51* -- -- 55* -- -- -- -- -- 70* 67* 76* GLU 146* 96 112* -- 120* 122* 107* 108* < > 108* 103* 78 96 < > = values in this interval not displayed. Recent Labs Lab 06/11/18163606/11/18145506/11/1831106/10/18 1722 INR 1.2* 1.4* 1.0 0.9 No results found for: CHOL, LDL, LDLDIRECT, HDL, TRIG, MICROALBUMIN All pertinent labs and imaging have been reviewed. Please refer to the Assessment and Plan for details on management. Total time spent with patient/family: 25 minutes spent with patient and on the patient's unit, with over 50% spent in counseling and/or coordination of care, discharge plan. Please refer to Assessment and Plan for details . Electronically signed by: Electronically signed by: SALVATORE Elias 06/13/2018 14:53 Diabetes team, [facility] [phone] Amaury Hill MD - 06/13/2018 10:27 AM PDTFormatting of this note might be different from the origi nal. [facility] PATIENT NAME: Smitha Fletcher : 1955: AGE: 62 y.o. ADMISSION DATE: 06/07/2018 Hospital Day: Hospital Day: 7 Code Status: Full Code DATE OF SERVICE: 06/13/2018 Dave Bansal MD/ DEVANTE VillaC CARDIOLOGY DAILY PROGRESS NOTE [facility] PROBLEM: ASHD (arteriosclerotic heart disease) CHIEF COMPLAINT: coronary artery disease, myocardial infarction, hypertension, hyperlipidem ia, ischemic cardiomyopathy SUBJECTIVE: Complains of pain, she moans a lot, CT in place. In normal sinus rhythm 90s, blood pressu re well controlled. ASSESSMENT * ASHD (arteriosclerotic heart disease) Assessment & Plan Post operative day #2 status post CABGx3. LITTLE to LAD, SVG to OM2, SVG to PDA. Dr. Webster . Complains of pain. EF 35% preOP to 50% post OP Blood pressure and rhythm well controlled. CT in place and draining. Normal sinus rhythm 95 On aspirin, statin, beta mateus Dyslipidemia Assessment & Plan On statin Ischemic cardiomyopathy Assessment & Plan EF PreOP 35% Post OP 50% On beta mateus Essential hypertension Assessment & Plan Normotensive on beta mateus alone PLAN 1. No change to her medications. SUBJECTIVE DATA REVIEW OF SYSTEMS: CV: negative Resp: negative GI: negative Neuro: no TIA or stroke-like symptoms OBJECTIVE DATA MEDICATIONS: Scheduled PRN acetaminophen 650 mg Oral 4 times per day aspirin 324 mg Oral Daily atorvaSTATin 40 mg Oral Nightly carvedilol 6.25 mg Oral BID WC furosemide 40 mg Intravenous Daily ibuprofen 600 mg Oral TID insulin lispro 0-6 Units Subcutaneous 5x Daily AC, HS and 3AM lidocaine 1 patch Transdermal Daily oxyCODONE 20 mg Oral 2 times per day albumin, albuterol, aspirin, bisacodyl, dextrose, Hypoglycemia Management AND POCT Glu cose AND dextrose, docusate sodium, ibuprofen, LORazepam, magnesium hydroxide, menthol t hroat lozenges, metoclopramide, metoclopramide, ondansetron, ondansetron, oxyCODONE, phenol, polyethylene glycol, senna, traZODone VITAL SIGNS: Vitals Current Average / Min / Max Temp 37.3 C (99.2 F) Temp Min: 36.3 C (97.4 F) Max: 37.4 C (99.4 F) BP 90/46 BP Min: 82/46 Max: 114/56 HR 92 Pulse Av.1 Min: 85 Max: 92 RR 16 Resp Av.7 Min: 14 Max: 20 Sats (!) 89 % on 1L/min nasal cannula Weight 65.3 kg (143 lb 15.4 oz) Admit: 68 kg (150 lb) INTAKE/OUTPUT Intake/Output Summary (Last 24 hours) at 06/13/182144 Last data filed at 06/13/18 2000 Gross per 24 hour Intake 1520 ml Output 350 ml Net 1170 ml PHYSICAL EXAM Admit Weight: Weight: 68 kg (150 lb) Current weight: Weight: 65.3 kg (143 lb 15.4 oz) Body mass index is 21.89 kg/m. GENERAL: Alert and Oriented x 3 moans in pain, sleepy NECK: Supple. No JVD. CHEST: Good inspiratory effort with no crackles, rhonchi, or wheezes. CARDIAC: regular rate and rhythm, no murmur ABDOMEN: Soft, non-tender, non distended with normal, active bowel sounds. EXTREMITIES: no significant edema. No venous insufficiency. PULSES: Right: DP 2+, PT 2+ Left: DP 2+, PT 2+ Intact distal pulses and 2+ bilaterally, NEUROLOGIC Neurologically intact SKIN: No rashes or skin breakdown. Sternum stable. CT in place. LABS Recent Labs 06/13/18 0402 06/12/18 0312 06/11/18 2301 06/11/18 1637 06/11/18 1456 06/11/18 0312 WBC 11.8* 12.1* -- -- 16.3* -- -- -- 7.3 HGB 10.3* 10.7* -- -- 11.0* < > -- < > 12.6 HCT 30.7* 31.9* -- -- 32.0* -- -- -- 37.4 PLT 192 244 -- -- 228 -- 208 -- 349 NA 137 146* -- -- 146* < > -- < > 139 K 4.6 4.8 5.4* < > 4.3 < > -- < > 4.3 CL 103 111* -- -- 109 -- -- -- 106 CO2 27 28 -- -- 28 -- -- -- 24 BUN 27* 22 -- -- 18 -- -- -- 27* CREA 1.12* 1.14* -- -- 1.07* -- -- -- 0.88 GLU 146* 96 112* -- 120* < > -- < > 103* CALCIUM 8.0* 8.5 -- -- 9.5 -- -- -- 9.0 INR -- -- -- -- 1.2* -- 1.4* -- 1.0 PT -- -- -- -- -- -- 17.4* -- -- PTT -- -- -- -- 32 -- -- -- 78* < > = values in this interval not displayed. Lab Results Component Value Date HBA1C 5.5 06/10/2018 I have personally reviewed and interpreted the above most recent data. TELEMETRY: normal sinus 95 Reviewed on Telemetry 06/13/2018 IMAGING: Xr Chest Ap Portable Result Date: 06/13/2018 CHEST PORTABLE ONE VIEW CLINICAL INFORMATION: Chest tube placement. COMPARISON: X-ray yeste rday. FINDINGS/IMPRESSION: 1. Right IJ central line has been removed. The remaining lines a nd support devices are unchanged in position. 2. Low lung volumes. Increased bibasilar airs pace consolidation or atelectasis, and increased bilateral perihilar hazy atelectasis or alexey ma. 3. Cardiomediastinal contours are stable. 4. No pneumothorax. Signed by: MD Upton P aula Sign Date/Time: 06/13/2018 6:46 AM Xr Chest Ap Portable Result Date: 06/12/2018 CHEST PORTABLE ONE VIEW CLINICAL INFORMATION: Respiratory difficulty. COMPARISON: X-ray yes terday. FINDINGS/IMPRESSION: 1. ET tube and NG tube have been removed. The remaining lines and support devices are unchanged in position. 2. Mildly increased left basilar opacity sugg esting atelectasis. Decreased left perihilar atelectasis. 3. Cardiomediastinal contours are stable. 4. No pneumothorax. Signed by: MD Upton Paula Sign Date/Time: 06/12/2018 4:16 A M Signed by: Dave Bansal MD 06/13/2018, 21:45 Portions of this chart were created with [employer] voice recognition software. Occasional wro ng-word or "sound-alike" substitutions may have occurred due to the inherent limitations of voice recognition software. Please read the chart carefully and recognize, using context, w here those substitutions have occurred.Electronically signed by Dave Bansal MD at 0 06/13/2018 9:46 PM Rip Fontanez MD - 06/13/2018 8:10 AM PDTFormatting of this note m ight be different from the original. Addendum: I have reviewed the note below, personally reviewed the available laboratory and imaging st udies and examined the patient. I agree with the assessment below, with the following additi on. Continuously moaning and writhing around in bed. Disturbing roommate. On multiple meds. Would d/c chest tubes which hopefully will help with pain. Suspect pain management will co ntinue to be an issue. CXR looks a little wet and there are low lung volumes and atelectasis. Need to work on ashli gs, mobilization - all of which will be difficult with her poor pain tolerance. Electronically signed by: Rip Yao M.D. CardioThoracic Surgery [facility] 06/13/2018 9:35 [facility] Pt. Name/Age/: Smitha Fletcher 62 y.o. 1955 Med. Record Number: [id number] Date of admission: 06/07/2018 POD #2 Procedure: CABG X 3 Surgeon: Eleanor Subjective New complaints: Serious pain issues all night long. Just got to sleep at 4 AM. Was sleepi ng soundly until 8:00. Then when it assess patient. Complaints of pain at her incision. H istory of polysubstance abuse including alcohol. Denies drinking alcohol in the last 25 yea rs. Denies any other illicit drug use. Objective: Temp: 37.4 C (99.4 F) BP: 109/61 Pulse: 85 Resp: 18 SpO2: 96 % on RA Min/Max Temp past 24 hours:Temp Av.1 C (98.8 F) Min: 36.3 C (97.4 F) Max: 3 7.5 C (99.5 F) Intake/Output Summary (Last 24 hours) at 06/13/18 0811 Last data filed at 06/13/18 0700 Gross per 24 hour Intake 1912.5 ml Output 1080 ml Net 832.5 ml Wt. Admission: Weight: 68 kg (150 lb) Wt. Current: Weight: 65.3 kg (143 lb 15.4 oz) Neuro: A&Ox3. Heart: normal rate and regular rhythm Respiratory:decreased breath sounds and rhonchi bilaterally Sternum: Stable Abdomen: soft, non-tender, without masses or organomegaly Extremities: no pedal edema noted Wounds: well approximated incision:chest and leg CT output: 405cc/12hrshift. Air Leak: negative Rhythm Strip: normal sinus Infusions: balanced electrolytes in water (PLASMALYTE-148/NORMOSOL-R) 15 mL/hr at 06/12/18 0900 Active Medications: acetaminophen 650 mg Oral 4 times per day aspirin 324 mg Oral Daily atorvaSTATin 40 mg Oral Nightly carvedilol 6.25 mg Oral BID WC insulin lispro 0-6 Units Subcutaneous 5x Daily AC, HS and 3AM lidocaine 1 patch Transdermal Daily oxyCODONE 20 mg Oral 2 times per day Imaging: Xr Chest Ap Portable Result Date: 06/13/2018 CHEST PORTABLE ONE VIEW CLINICAL INFORMATION: Chest tube placement. COMPARISON: X-ray yeste rday. FINDINGS/IMPRESSION: 1. Right IJ central line has been removed. The remaining lines a nd support devices are unchanged in position. 2. Low lung volumes. Increased bibasilar airs pace consolidation or atelectasis, and increased bilateral perihilar hazy atelectasis or alexey ma. 3. Cardiomediastinal contours are stable. 4. No pneumothorax. Signed by: MD Upton P aula Sign Date/Time: 06/13/2018 6:46 AM Xr Chest Ap Portable Result Date: 06/12/2018 CHEST PORTABLE ONE VIEW CLINICAL INFORMATION: Respiratory difficulty. COMPARISON: X-ray yes terday. FINDINGS/IMPRESSION: 1. ET tube and NG tube have been removed. The remaining lines and support devices are unchanged in position. 2. Mildly increased left basilar opacity sugg esting atelectasis. Decreased left perihilar atelectasis. 3. Cardiomediastinal contours are stable. 4. No pneumothorax. Signed by: MD Upton Paula Sign Date/Time: 06/12/2018 4:16 A M Xr Chest Ap Portable Result Date: 06/11/2018 CHEST SINGLE VIEW CLINICAL INFORMATION: Post operative coronary artery bypass graft. COMPAR LORENA: Two view chest dated 06/07/2018. FINDINGS: Interval postoperative changes of median ster notomy and CABG. Mild bibasilar densities, likely atelectasis. No pneumothorax. Cardiac s ilhouette is unchanged. Lines and support devices as follows: Endotracheal tube tip is 4.2 c m above the candice. Right IJ central venous catheter tip is in the region of the atriocaval junction. Distal enteric tube tip is within the stomach. Mediastinal and left pleural drains are in place. IMPRESSION: 1. Expected postoperative changes status post median sternotomy a nd CABG. 2. Lines and support devices in expected, appropriate positions as described. Alisa d by: MD Briceno Jeffrey Sign Date/Time: 06/11/2018 5:23 PM Labs: Recent Labs 06/13/18 0402 06/12/18 0312 06/11/18 2301 06/11/18 1637 06/11/18 1456 06/11/18 0312 06/10/182002 WBC 11.8* 12.1* -- -- 16.3* -- -- -- 7.3 < > -- HGB 10.3* 10.7* -- -- 11.0* < > -- < > 12.6 -- -- HCT 30.7* 31.9* -- -- 32.0* -- -- -- 37.4 < > -- PLT 192 244 -- -- 228 -- 208 -- 349 < > -- NA 137 146* -- -- 146* < > -- < > 139 -- -- K 4.6 4.8 5.4* < > 4.3 < > -- < > 4.3 -- -- CL 103 111* -- -- 109 -- -- -- 106 -- -- CO2 27 28 -- -- 28 -- -- -- 24 -- -- BUN 27* 22 -- -- 18 -- -- -- 27* -- -- CREA 1.12* 1.14* -- -- 1.07* -- -- -- 0.88 -- -- GLU 146* 96 112* -- 120* < > -- < > 103* -- -- CALCIUM 8.0* 8.5 -- -- 9.5 -- -- -- 9.0 -- -- INR -- -- -- -- 1.2* -- 1.4* -- 1.0 -- -- PT -- -- -- -- -- -- 17.4* -- -- -- -- PTT -- -- -- -- 32 -- -- -- 78* -- 38* < > = values in this interval not displayed. No results found for: CHOL, HDL, TRIG Diagnostic studies: Available data and images were reviewed personally. See reports. Signi ficant results and findings are addressed here or in the Assessment and Plan. Assessment and Plan: S/P: CABG X 3. D/C CT later today due to pain issues. After she's been up and ambulated at least 2 times.. Coronary Artery Disease:On BBlocker, ASA, Statin. EF 37. Pain. Will continue multiple modality. Continue lidocaine patches, narcotics ,Tylenol, NS AID. Cardiac Rhythm: sinus rhythm, monitor Progress pt care with Cardiopulmonary rehab. Wean O2, IS/deep breathing q1hr while awake, a mbulate and progress. Acute blood loss anemia:monitor, iron Glucose management: Per DM team. Problem List Patient Active Problem List Diagnosis Essential hypertension Ischemic cardiomyopathy Tobacco abuse ASHD (arteriosclerotic heart disease) Dyslipidemia Cellulitis and abscess of hand, except fingers [...] syndrome Non-intractable vomiting with nausea Polysubstance abuse Chronic GERD Elevated troponin level Methamphetamine use Stress hyperglycemia Status post three vessel coronary artery bypass Electronically signed by: Hector Decker PA-C Cardiothoracic Surgery [facility] [address], [address] [place] [address] 06/13/2018 8:11 [facility] Kezia Downing RN - 06/12/2018 3:10 PM PDTPt a/o. Has low threshold for pain. Has hx of substance abuse inc luding heroine. Consulted pharmacy this am for pain control. Notified Liyah CHASE for pain med orders. Orders received. Pt now more comfortable with pain med control. Still re quires roxicodone for breakthrough pain. Pt delined except for CT's X3. Discussed with Jose Webster this am. Using IS independently. Andino discontinued intact. Pt tolerated well. Plan transfer to floor. Yecenia Christianson SOCIETY REPORTER - 06/12/2018 12:20 PM PDTSOCIAL WORK D/C PLAN: TBD INTERVENTION: Sw following for discharge planning. NEXT STEPS: Follow progress and therapy recommendations for discharge planning. ASSESSMENT/CHART REVIEW: Pt resides in [place]. She has Medicare coverage. COPD, is risk for readmission. If pt d oes not need placement she may benefit from home health post acute care. D/C TRANSPORT: TBD BARRIERS TO D/C: Medical stability CONTACTS: Hanna Sethi: [phone] signed by JEFFY Cabrales at 06/12/2018 1 2:24 PM PDTDave Bansal MD - 06/12/2018 11:33 AM PDTFormatting of this note might b e different from the original. [facility] PATIENT NAME: Smitha Fletcher : 1955: AGE: 62 y.o. ADMISSION DATE: 06/07/2018 DATE OF SERVICE: 06/12/2018 PRIMARY CARE: SALVATORE Ventura MD DAILY PROGRESS NOTE CURRENT ASSESSMENT AND PLAN * Status post three vessel coronary artery bypass Assessment & Plan Status post three-vessel bypass grafting postop day #1 Hemodynamic stable and in sinus rhythm Chest wall pain-pain control Continue medical therapy Methamphetamine use Assessment & Plan She denies use and suggests that there may have been accidental use from relatives "lacing " the marijuana that she smokes with meth. Counseled. Tobacco abuse Assessment & Plan Counseled regarding smoking cessation Essential hypertension Assessment & Plan Hypertension was exacerbated by amphetamine use. Will get it under control with medicatio ns and counseling to avoid amphetamines, methamphetamines. Low-sodium diet will help. Treat with medical therapy including Coreg and lisinopril as tolerated. She has had some r elative hypotension Principal Problem: Status post three vessel coronary artery bypass Active Problems: Essential hypertension Ischemic cardiomyopathy Tobacco abuse ASHD (arteriosclerotic heart disease) Chest pain syndrome Non-intractable vomiting with nausea Polysubstance abuse Chronic GERD Elevated troponin level Methamphetamine use Stress hyperglycemia SCHEDULED MEDS: aspirin 324 mg Oral Daily atorvaSTATin 40 mg Oral Nightly carvedilol 6.25 mg Oral BID WC insulin lispro 0-6 Units Subcutaneous 5x Daily AC, HS and 3AM oxyCODONE 20 mg Oral 2 times per day IV INFUSIONS: balanced electrolytes in water (PLASMALYTE-148/NORMOSOL-R) 15 mL/hr at 06/12/18 0900 clevidipine Stopped (06/11/181999) dexmedetomidine (PRECEDEX) infusion Stopped (06/11/18 2300) fentaNYL Stopped (06/12/18 0900) phenylephrine Stopped (06/12/18899) propofol infusion Stopped (06/11/182048) LABS Recent Results (from the past 24 hour(s)) Chemistry Profile, A and V, Surgery Collection Time: 06/11/18 13:00 Result Value Ref Range pH, Arterial 7.29 (L) 7.37 - 7.47 pCO2, Arterial 52 (H) 32 - 43 mmHg pO2, Arterial 309 (H) 65 - 80 mmHg O2 Content, Arterial 10.4 (L) 15.0 - 23.0 % HGB O2 SAT 97.9 92.0 - 99.9 % HCO3, Arterial 24.4 23.0 - 28.0 mmol/L Base Excess, Arterial -1.2 -2.5 - 2.5 Carboxyhemoglobin 0.5 (L) 1.0 - 3.0 % Methemoglobin, Venous 0.9 0.4 - 1.5 % pH, Venous 7.25 (L) 7.31 - 7.41 pCO2, Venous 59 (H) 41 - 51 mmHg pO2, Venous 53 (H) 37 - 43 mmHg Hgb 7.0 (L) 11.3 - 15.5 g/dL O2SAT COOX VENOUS 78.6 (H) 70.0 - 76.0 % GLUCOSE 172 (H) 65 - 99 mg/dL K 7.8 (H) 3.5 - 5.0 mmol/L Calcium, Ionized (mg/dL) 3.93 (L) 4.75 - 5.30 mg/dL Calcium, pH Normalized 3.71 (L) 4.75 - 5.30 mg/dL Lactic Acid, Arterial, Surgery Collection Time: 06/11/18 13:00 Result Value Ref Range Lactate, Arterial 1.1 0.5 - 1.6 mmol/L Blood Gas , Arterial, Surgery Collection Time: 06/11/18 13:34 Result Value Ref Range pH, Arterial 7.34 (L) 7.37 - 7.47 pCO2, Arterial 47 (H) 32 - 43 mmHg pO2, Arterial 188 (H) 65 - 80 mmHg O2 Content, Arterial 10.8 (L) 15.0 - 23.0 % HGB O2 SAT 97.5 92.0 - 99.9 % Hgb 7.6 (L) 11.3 - 15.5 g/dL HCO3, Arterial 25.0 23.0 - 28.0 mmol/L Base Excess, Arterial 0.0 -2.5 - 2.5 Carboxyhemoglobin 0.7 (L) 1.0 - 3.0 % Methemoglobin, Venous 0.8 0.4 - 1.5 % Calcium, Ionized (mg/dL) 3.08 (L) 4.75 - 5.30 mg/dL Calcium, pH Normalized 2.99 (L) 4.75 - 5.30 mg/dL K 7.0 (H) 3.5 - 5.0 mmol/L GLUCOSE 189 (H) 65 - 99 mg/dL Lactic Acid, Arterial, Surgery Collection Time: 06/11/18 13:34 Result Value Ref Range Lactate, Arterial 1.2 0.5 - 1.6 mmol/L Blood Gas , Arterial, Surgery Collection Time: 06/11/18 14:00 Result Value Ref Range pH, Arterial 7.34 (L) 7.37 - 7.47 pCO2, Arterial 48 (H) 32 - 43 mmHg pO2, Arterial 206 (H) 65 - 80 mmHg O2 Content, Arterial 11.3 (L) 15.0 - 23.0 % HGB O2 SAT 97.5 92.0 - 99.9 % Hgb 7.9 (L) 11.3 - 15.5 g/dL HCO3, Arterial 24.9 23.0 - 28.0 mmol/L Base Excess, Arterial -0.1 -2.5 - 2.5 Carboxyhemoglobin 0.7 (L) 1.0 - 3.0 % Methemoglobin, Venous 0.9 0.4 - 1.5 % Calcium, Ionized (mg/dL) 3.56 (L) 4.75 - 5.30 mg/dL Calcium, pH Normalized 3.44 (L) 4.75 - 5.30 mg/dL K 6.7 (H) 3.5 - 5.0 mmol/L GLUCOSE 144 (H) 65 - 99 mg/dL Lactic Acid, Arterial, Surgery Collection Time: 06/11/18 14:00 Result Value Ref Range Lactate, Arterial 1.5 0.5 - 1.6 mmol/L Blood Gas , Arterial, Surgery Collection Time: 06/11/18 14:50 Result Value Ref Range pH, Arterial 7.37 7.37 - 7.47 pCO2, Arterial 43 32 - 43 mmHg pO2, Arterial 336 (H) 65 - 80 mmHg O2 Content, Arterial 10.8 (L) 15.0 - 23.0 % HGB O2 SAT 97.8 92.0 - 99.9 % Hgb 7.2 (L) 11.3 - 15.5 g/dL HCO3, Arterial 24.2 23.0 - 28.0 mmol/L Base Excess, Arterial -0.4 -2.5 - 2.5 Carboxyhemoglobin 1.2 1.0 - 3.0 % Methemoglobin, Venous 0.8 0.4 - 1.5 % Calcium, Ionized (mg/dL) 4.73 (L) 4.75 - 5.30 mg/dL Calcium, pH Normalized 4.66 (L) 4.75 - 5.30 mg/dL K 5.3 (H) 3.5 - 5.0 mmol/L GLUCOSE 108 (H) 65 - 99 mg/dL NA 141 135 - 145 mmol/L Lactic Acid, Arterial, Surgery Collection Time: 06/11/18 14:50 Result Value Ref Range Lactate, Arterial 2.0 (H) 0.5 - 1.6 mmol/L DIC Panel Collection Time: 06/11/18 14:56 Result Value Ref Range D-DIMER, QUANTITATIVE 2.98 (H) 0.00 - 0.49 ug/mL FEU FIBRINOGEN 174 (L) 211 - 419 mg/dL INR 1.4 (H) 0.9 - 1.1 Platelet Count 208 150 - 400 K/uL Protime 17.4 (H) 12.0 - 14.2 sec RBC MORPHOLOGY Normal Normal Thrombin Time, Patient 21.1 (H) 15.6 - 20.0 sec Thrombin Time, Patient/PSO4 Mix 16.0 sec aPTT, Patient 31 26 - 36 sec Blood Gas , Arterial, Surgery Collection Time: 06/11/18 15:25 Result Value Ref Range pH, Arterial 7.37 7.37 - 7.47 pCO2, Arterial 42 32 - 43 mmHg pO2, Arterial 122 (H) 65 - 80 mmHg O2 Content, Arterial 11.4 (L) 15.0 - 23.0 % HGB O2 SAT 96.7 92.0 - 99.9 % Hgb 8.2 (L) 11.3 - 15.5 g/dL HCO3, Arterial 24.2 23.0 - 28.0 mmol/L Base Excess, Arterial -0.4 -2.5 - 2.5 Carboxyhemoglobin 1.4 1.0 - 3.0 % Methemoglobin, Venous 0.7 0.4 - 1.5 % Calcium, Ionized (mg/dL) 5.38 (H) 4.75 - 5.30 mg/dL Calcium, pH Normalized 5.30 4.75 - 5.30 mg/dL K 5.2 (H) 3.5 - 5.0 mmol/L GLUCOSE 107 (H) 65 - 99 mg/dL NA 142 135 - 145 mmol/L Lactic Acid, Arterial, Surgery Collection Time: 06/11/18 15:25 Result Value Ref Range Lactate, Arterial 1.9 (H) 0.5 - 1.6 mmol/L Blood Gas, Arterial Collection Time: 06/11/18 16:36 Result Value Ref Range pH, Arterial 7.39 7.37 - 7.47 pCO2, Arterial 46 (H) 32 - 43 mmHg pO2, Arterial 141 (H) 65 - 80 mmHg Base Excess, Arterial 2.6 (H) -2.5 - 2.5 mmol/L HCO3, Arterial 27.6 23.0 - 28.0 mmol/L FiO2 50 ROUTE SIMV Rate 14 VT 550 PEEP 5 Methemoglobin, Venous 1.0 0.4 - 1.5 % Comment PS8 HAP280 O2 Content, Arterial 15.7 15.0 - 23.0 % Carboxyhemoglobin 1.2 1.0 - 3.0 % O2SAT COOX ARTERIAL 97.3 92.0 - 99.0 % Glucose, Respiratory Collection Time: 06/11/18 16:36 Result Value Ref Range GLUCOSE 122 (H) 65 - 99 mg/dL Calcium, Ionized, Respiratory Collection Time: 06/11/18 16:36 Result Value Ref Range Calcium, Ionized (mg/dL) 5.09 4.75 - 5.30 mg/dL Calcium, pH Normalized 5.06 4.75 - 5.30 mg/dL Lactic Acid, Arterial, Respiratory Collection Time: 06/11/18 16:36 Result Value Ref Range Lactate, Arterial 1.0 0.5 - 1.6 mmol/L CBC no Differential Collection Time: 06/11/18 16:37 Result Value Ref Range WBC 16.3 (H) 3.8 - 11.0 K/uL RBC 3.68 (L) 3.70 - 5.10 M/uL Hgb 11.0 (L) 11.3 - 15.5 g/dL Hct 32.0 (L) 34.0 - 46.0 % MCV 87.0 80.0 - 100.0 fL MCH 29.9 27.0 - 34.0 pg MCHC 34.4 32.0 - 35.5 g/dL RDW-CV 15.3 11.0 - 15.5 % Platelet Count 228 150 - 400 K/uL MPV 6.3 (L) 7.5 - 11.2 fL Comprehensive Metabolic Panel Collection Time: 06/11/18 16:37 Result Value Ref Range NA 146 (H) 135 - 145 mmol/L K 4.3 3.5 - 5.0 mmol/L CL 109 99 - 109 mmol/L CO2 28 21 - 28 mmol/L CALCIUM 9.5 8.5 - 10.2 mg/dL ANION GAP 9 5 - 16 mmol/L ALBUMIN 4.2 3.3 - 4.8 g/dL BUN 18 8 - 25 mg/dL Creatinine, Serum/Plasma 1.07 (H) 0.50 - 1.00 mg/dL GLUCOSE 120 (H) 65 - 99 mg/dL Total protein 6.0 (L) 6.1 - 7.8 g/dL ALK PHOS 72 35 - 115 U/L ALT 9 (L) 10 - 65 U/L AST 29 10 - 45 U/L Bilirubin Total 0.4 0.2 - 1.1 mg/dL Estimated GFR 55 (L) >=90 mL/min/1.73m2 Protime INR Collection Time: 06/11/18 16:37 Result Value Ref Range Protime 14.6 (H) 12.0 - 14.2 sec INR 1.2 (H) 0.9 - 1.1 PTT Collection Time: 06/11/18 16:37 Result Value Ref Range PTT 32 26 - 36 sec POC Glucose Collection Time: 06/11/18 18:52 Result Value Ref Range Glucose, POC 156 (H) 65 - 99 mg/dL Potassium Collection Time: 06/11/18 19:58 Result Value Ref Range K 3.9 3.5 - 5.0 mmol/L POC Glucose Collection Time: 06/11/18 20:29 Result Value Ref Range Glucose, POC 147 (H) 65 - 99 mg/dL POC Glucose Collection Time: 06/11/18 21:56 Result Value Ref Range Glucose, POC 116 (H) 65 - 99 mg/dL Red Blood Cells Collection Time: 06/11/18 22:29 Result Value Ref Range Product Code J4686V22 UNIT # [id number] UNIT ABO O UNIT RH NEG CROSSMATCH INTERP Compatible Unit Status XM Blood Product Expiration Date and Time Product Blood Type Barcode 9500 Product Code X6945U44 UNIT # [id number] UNIT ABO O UNIT RH NEG CROSSMATCH INTERP Compatible Unit Status IS Blood Product Expiration Date and Time Product Blood Type Barcode 9500 Blood Gas, Arterial Collection Time: 06/11/18 23:01 Result Value Ref Range pH, Arterial 7.35 (L) 7.37 - 7.47 pCO2, Arterial 49 (H) 32 - 43 mmHg pO2, Arterial 101 (H) 65 - 80 mmHg Base Excess, Arterial 1.7 -2.5 - 2.5 mmol/L HCO3, Arterial 27.3 23.0 - 28.0 mmol/L FiO2 40 ROUTE PSV 8/5 Methemoglobin, Venous 0.8 0.4 - 1.5 % Comment SPO2 100 RR 20 O2 Content, Arterial 15.8 15.0 - 23.0 % Carboxyhemoglobin 1.1 1.0 - 3.0 % O2SAT COOX ARTERIAL 95.9 92.0 - 99.0 % Glucose, Respiratory Collection Time: 06/11/18 23:01 Result Value Ref Range GLUCOSE 112 (H) 65 - 99 mg/dL Potassium Whole Blood Collection Time: 06/11/18 23:01 Result Value Ref Range K 5.4 (H) 3.5 - 5.0 mmol/L POC Glucose Collection Time: 06/11/18 23:19 Result Value Ref Range Glucose, POC 113 (H) 65 - 99 mg/dL POC Glucose Collection Time: 06/11/18 23:58 Result Value Ref Range Glucose, POC 105 (H) 65 - 99 mg/dL POC Glucose Collection Time: 06/12/18 1:35 Result Value Ref Range Glucose, POC 99 65 - 99 mg/dL POC Glucose Collection Time: 06/12/18 2:39 Result Value Ref Range Glucose, POC 107 (H) 65 - 99 mg/dL Basic Metabolic Panel Collection Time: 06/12/18 3:12 Result Value Ref Range NA 146 (H) 135 - 145 mmol/L K 4.8 3.5 - 5.0 mmol/L CL 111 (H) 99 - 109 mmol/L CO2 28 21 - 28 mmol/L ANION GAP 7 5 - 16 mmol/L CALCIUM 8.5 8.5 - 10.2 mg/dL BUN 22 8 - 25 mg/dL Creatinine, Serum/Plasma 1.14 (H) 0.50 - 1.00 mg/dL GLUCOSE 96 65 - 99 mg/dL Estimated GFR 51 (L) >=90 mL/min/1.73m2 CBC no Differential Collection Time: 06/12/18 3:12 Result Value Ref Range WBC 12.1 (H) 3.8 - 11.0 K/uL RBC 3.66 (L) 3.70 - 5.10 M/uL Hgb 10.7 (L) 11.3 - 15.5 g/dL Hct 31.9 (L) 34.0 - 46.0 % MCV 87.2 80.0 - 100.0 fL MCH 29.4 27.0 - 34.0 pg MCHC 33.7 32.0 - 35.5 g/dL RDW-CV 15.5 11.0 - 15.5 % Platelet Count 244 150 - 400 K/uL MPV 6.5 (L) 7.5 - 11.2 fL POC Glucose Collection Time: 06/12/18 3:15 Result Value Ref Range Glucose, POC 98 65 - 99 mg/dL POC Glucose Collection Time: 06/12/18 5:08 Result Value Ref Range Glucose, POC 87 65 - 99 mg/dL POC Glucose Collection Time: 06/12/18 6:00 Result Value Ref Range Glucose, POC 100 (H) 65 - 99 mg/dL Red Blood Cells (PRBC) - Crossmatch Collection Time: 06/12/18 6:53 Result Value Ref Range Product Code T5662Y23 UNIT # [id number] UNIT ABO O UNIT RH NEG CROSSMATCH INTERP Compatible Unit Status XM Blood Product Expiration Date and Time [id number] Product Blood Type Barcode 9500 POC Glucose Collection Time: 06/12/18 6:59 Result Value Ref Range Glucose, POC 98 65 - 99 mg/dL OBJECTIVE LATEST VITALS: BP 112/74 | Pulse 88 | Temp 37.3 C (99.1 F) | Resp 22 | Ht 1.727 m (5' 8") | Wt 65.3 kg (143 lb 15.4 oz) | SpO2 92% | BMI 21.89 kg/m I/O s (this shift): I/O this shift: In: 902.5 [P.O.:800; I.V.:102.5] Out: 300 [Urine:170; Chest Tube:130] REVIEW OF SYSTEMS CV: sinus rhythm, he was medically stable, Resp: good oxygenation Vital sign ranges for last 24hrs: Input and output for last 24hrs: Temp: [36.2 C (97.2 F)-37.4 C (99.3 F)] 37.3 C (99.1 F) Pulse: [54-88] 88 Resp: [11-30] 22 BP: (77-126)/(52-74) 112/74 Arterial Line BP: (108-118)/(56-60) 108/56 SpO2 Av.1 % Min: 92 % Max: 100 % Flow (L/min) Av.8 Min: 1 Max: 4 09/05 1901 - 09/07 0700 In: 7059 [P.O.:810; I.V.:4692] Out: 5565 [Urine:5080] Body mass index is 21.89 kg/m.; Body surface area is 1.77 meters squared. PHYSICAL EXAM Admit Weight: Weight: 68 kg (150 lb) Current weight: Weight: 65.3 kg (143 lb 15.4 oz) GENERAL: Pleasant, talkative in no apparent distress HEENT: The oropharynx and conjunctivae are clear. Mucous membranes moist. EEOMI. NECK: Supple. Carotids are 2+ and brisk bilaterally without bruits. CHEST: Decreased breath sounds bilaterally CARDIAC: No lifts/heaves. PMI is discrete and non-displaced. Normal S1 and S2. Soft syst olic murmur ABDOMEN: Soft, non-tender, nondistended with normal, active bowel sounds. Normal abdominal pulsation without bruit. EXTREMITIES: No clubbing, cyanosis, or edema. PULSES: Right: radial 2+, femoral 2+ DP 2+, PT 1+ Left: radial 2+, femoral 2+ DP 2+, PT 1+ NEUROLOGIC: Non-focal. SKIN: No rashes or skin breakdown. MUSCULOSKELETAL: normal ambulation Signed by: Dave Bansal MD 06/12/2018, 11:33 Hemanth Duvall MD - 06/12/2018 10:12 AM PDT [facility] Hemanth Webster MD PATIENT NAME: Smitha Fletcher : 1955: AGE: 62 y.o. ADMISSION DATE: 06/07/2018 DAILY PROGRESS NOTE Procedure: CABG x 3 1 Day Post-Op CURRENT ASSESSMENT AND PLAN 62 yo F s/p CABG extubated overnight and doing well. Complaining of pain - leave chest tubes today - start beta mateus; continue aspirin/statin - ambulation - transfer - remove lines SCHEDULED MEDS: aspirin 324 mg Oral Daily atorvaSTATin 40 mg Oral Nightly insulin lispro 0-6 Units Subcutaneous 5x Daily AC, HS and 3AM magnesium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 Value Ref Range WBC 7.3 3.8 - 11.0 K/uL RBC 4.64 3.70 - 5.10 M/uL Hgb 13.9 11.3 - 15.5 g/dL Hct 41.4 34.0 - 46.0 % MCV 89.3 80.0 - 100.0 fL MCH 29.9 27.0 - 34.0 pg MCHC 33.5 32.0 - 35.5 g/dL RDW-CV 15.2 11.0 - 15.5 % Platelet Count 332 150 - 400 K/uL MPV 7.0 (L) 7.5 - 11.2 fL % Neutrophils 59.1 40.0 - 75.0 % % Lymphocytes 29.5 15.0 - 48.0 % % Monocytes 8.0 0.0 - 12.0 % % Eosinophils 2.4 0.0 - 7.0 % % Basophils 1.0 0.0 - 2.0 % Absolute Neutrophils 4.30 1.90 - 7.40 K/uL Absolute Lymphocytes 2.15 1.00 - 3.90 K/uL Absolute Monocytes 0.58 0.00 - 0.80 K/uL Absolute Eosinophils 0.18 0.00 - 0.50 K/uL Absolute Basophils 0.07 0.00 - 0.10 K/uL Magnesium Result Value Ref Range MG 2.1 1.7 - 2.4 mg/dL NM Nuclear Stress Test (Exercise) Result Value Ref Range BASELINE HEART RATE 85 bpm BASELINE BLOOD PRESSURE 144/82 mmHg PEAK HEART RATE 113 PEAK BLOOD PRESSURE 137/76 mmHG Target HR 133 Percent HR 72 Estimated rate pressure 16,498 ST Elevation (mm) 0.0 mm LVEF-SPECT NUCLEAR STRESS/VIABILITY 32 % NM stress end diastolic volume 155 NM stress end systolic volume 105 TID VALUE 1.09 LVEF VALUE Result Value Ref Range LVEF-LVGRAM CARDIAC CATH 37 % No results found for: POCGLU All pertinent labs and imaging have been reviewed. Please refer to the Assessment and Plan for details on management. I spent 35 minutes with the patient and on the patient's unit, with over 50% spent in coun seling and/or coordination of care. Please refer to the Assessment and Plan for details. Electronically signed by: Kathie Campbell MD 06/09/2018 17:32 Portions of this chart may have been created with [employer] recognition software. Occasi onal wrong-word or sound-alike substitutions may have occurred due to the inherent meyers itations of voice recognition software. Please read the chart carefully and recognize, using context, where these substitutions have occurred oulet, hSad Herrera MD - 06/09/2018 9:50 AM PDT PATIENT NAME: Smitha Fletcher : 1955: AGE: 62 y.o. ADMISSION DATE: 06/07/2018 SERVICE DATE: 06/09/18 PRIMARY CARE: SALVATORE Ventura MD Internal Medicine Resident CARDIOLOGY DAILY PROGRESS NOTE 06/09/18 During the visit, I personally interviewed and examined the patient. I confirmed the martinez c omponents of the history and PE. I reviewed the note as written by the resident provider, lamar garcia discussed the patient. I agree with the impressions and plans and have listed any needed c larifications or made changes within the note. Patient seen pre cath and examined. Note completed post cath CURRENT ASSESSMENT AND PLAN #Ischemic Cardiomyopathy/HFrEF s/p Stenting #Severe 3-Vessel CAD #Elevated Troponin #Chest Pain Improving. Suspect chest pain was likely 2/2 ischemia due to reportedly unintentional/accid ental methamphetamine abuse (family members reportedly "laced" marijuana that patient smoked w/ methamphetamine) in setting of stable CAD. Troponins appear to have peaked. TTE on 018 revealed LVEF = 45%, kmjrrkoc-bs-zouysz hypokinesis of lateral and inferior castillo, julian l annular calcification & mild aortic stenosis. Nuclear stress on 06/09/2018 read as high risk . Cardiac catheterization revealed severe 3-vessel disease was completed shortly after nucle ar stress test. Subsequently, cardiothoracic surgery was consulted and agreed to perform CAB G. -CABG on 06/11/2018 -Telemetry -ASA -Atorvastatin -Carvedilol -Lisinopril #HTN Control improving but consistently not at goal. -Carvedilol -Lisinopril #Polysubstance Abuse History of abuse of methamphetamine, marijuana and heroin. -Patient counseled on need to quit #Nicotine Dependence -Patient counseled on need to quit #GERD -Management per hospitalist service -Pantoprazole #UTI -Management per hospitalist service -Cefdinir -Probiotic Chief Complaint: Chest pain Hospital Course: 62F PMH CAD/AR s/p stent (2011), ischemic HFrEF (LVEF = 45%), HTN, polysubstance abuse (met hamphetamine & marijuana), HCV, bipolar disorder, nicotine dependence and incarceration pres ented from senior care w/ severe, burning, substernal chest pain w/ radiation to left shoulder and associated nausea and vomiting. Workup in ED revealed troponin elevation (peak 0.311 this admission) and patient was admitt ed for further workup and management w/ cardiology. Labs in ED also revealed UDS positive fo r amphetamine, methamphetamine, benzodiazepines and opiates. TTE revealed LVEF = 45%, bsfitpoq-uh-sqspcs hypokinesis of lateral and inferior castillo, mitr al annular calcification & mild aortic stenosis. Underwent nuclear stress test on 06/09/2018 A M which was read as high risk. Shortly afterwards she underwent cardiac catheterization whic h revealed severe 3-vessel disease. Subsequently cardiothoracic surgery was consulted and elijah hawkins is now scheduled for CABG on 06/11/2018. Interval History: No acute overnight events. SCHEDULED MEDS: aspirin 81 mg Oral Daily atorvaSTATin 40 mg Oral Nightly carvedilol 12.5 mg Oral BID WC cefdinir 300 mg Oral BID lidocaine lisinopril 20 mg Oral BID magnesium oxide 400 mg Oral Daily pantoprazole 40 mg Oral QAM AC probiotic formula 1 capsule Oral BID WC IV INFUSIONS: None OBJECTIVE LATEST VITALS: BP 138/75 | Pulse 69 | Temp 36.1 C (97 F) (Temporal) | Resp 18 | Ht 1.727 m (5' 8") | Wt 65.4 kg (144 lb 3.2 oz) | SpO2 97% | BMI 21.93 kg/m I/O s (this shift): No intake/output data recorded. Vital sign ranges for last 24hrs: Input and output for last 24hrs: Temp: [36.1 C (96.9 F)-36.7 C (98 F)] 36.1 C (97 F) Pulse: [68-81] 69 Resp: [16-18] 18 BP: (112-143)/(58-86) 138/75 SpO2 Av.6 % Min: 95 % Max: 98 % 06/07 1901 - 06/09 0700 In: 2318 [P.O.:780; I.V.:1488] Out: 3075 [Urine:3075] Body mass index is 21.93 kg/m.; Body surface area is 1.77 meters squared. Admit Weight: Weight: 68 kg (150 lb) Current weight: Weight: 65.4 kg (144 lb 3.2 oz) PHYSICAL EXAM - (AJB - note - I get 1+ feet pulses, not 2+) Physical Exam Constitutional: She is oriented to person, place, and time. She appears well-developed and well-nourished. No distress. Eyes: Conjunctivae are normal. Right eye exhibits no discharge. Left eye exhibits no discha rge. No scleral icterus. Cardiovascular: Normal rate, regular rhythm and normal heart sounds. Pulses: Radial pulses are 2+ on the right side, and 2+ on the left side. Dorsalis pedis pulses are 2+ on the right side, and 2+ on the left side. Pulmonary/Chest: Effort normal and breath sounds normal. Abdominal: Soft. Bowel sounds are normal. She exhibits no distension. Musculoskeletal: She exhibits no edema. Neurological: She is alert and oriented to person, place, and time. Skin: She is not diaphoretic. Psychiatric: She has a normal mood and affect. LABS Recent Labs 06/09/18 0307 06/08/18 0316 06/07/18 1135 06/07/18 0910 WBC 7.3 -- -- 11.6* HGB 13.9 -- -- 15.1 HCT 41.4 -- -- 44.3 PLT 332 -- -- 431* NA 137 137 -- 140 K 4.6 3.6 -- 4.3 CL 108 103 -- 106 CO2 22 23 -- 22 BUN 14 10 -- 18 CREA 0.82 0.78 -- 0.80 GLU 96 111* -- 138* CALCIUM 9.0 9.0 -- 10.1 CKMB -- -- 3.1 -- No results found for: CHOL, HDL, TRIG No results found. Signed by: Jeffy Ramos MD 06/09/2018, 9:50 During the visit, I personally interviewed and examined the patient. I confirmed the martinez c omponents of the history and PE. I reviewed the note as written by the resident provider, lamar garcia discussed the patient. I agree with the impressions and plans and have listed any needed c larifications or made changes within the note. Electronically signed by: Shad Schuler MD 06/09/2018 18:44 ichael Olson MD - 4:25 PM PDT Patient: Smitha Fletcher Date of : 1955 Admit Date: 06/07/2018 Date of Service: 06/08/2018 PCP: Yolanda Lee [facility] Day: 0 Hospital Course: This is a 62 y.o. female with hx substance abuse, AR and stent [place] [address] Riya banuelos cardiology. She was brought from senior care, complaining on sever -06/15 burning chest pain substernal , radi ates to left shoulder, associated with nausea and multiple vomiting, also epigastric ad RUQ pain burning in nature. Assessment and Plan: Assessment of active problems addressed today: Chest pain/elevated troponin Hypertension resolved->chest pain improved. Troponin trended down. The patient has history of coronary artery disease. Cardiology feels this was demand ischemia in the setting of ross rely elevated blood pressure and Methamphetamine use. Chest pain could be gastrointestinal. ECHO: LV ER 45%, regional wall hypokinesis present but the patient has has AR's in the past . Mild LVH. Stress test planned for tomorrow. Telemetry Workup and management per cardiology. Coronary artery disease Continue Aspirin. Restarted Atorvastatin. Hypertension Coreg and lisinopril. Dyspepsia Start oral protonix, discontinued IV protonix. Abdomen is benign, hemoglobin normal. UTI The patient has had urinary symptoms, UA positive. Unfortunately no urine culture drawn. Transition to Omnicef, discontinue Rocephin. Substance abuse Active Hospital Problems Diagnosis Chest pain syndrome Non-intractable vomiting with nausea Polysubstance abuse Chronic GERD Elevated troponin level Methamphetamine use ASHD (arteriosclerotic heart disease) Essential hypertension Tobacco abuse Ischemic cardiomyopathy Resolved Hospital Problems Diagnosis No resolved problems to display. I have reviewed and updated the problem list. Disposition: home CODE STATUS: Full Code DVT prophylaxis: sufficiently ambulatory Subjective: CC: chest pain resolved, history positive for urinary symptoms preceding admission. Review of Systems Respiratory: Negative for shortness of breath. Cardiovascular: Negative for chest pain. Gastrointestinal: Negative for abdominal pain. Objective: Vital Signs 06/06 700 - 06/07 0606/07 - 06/08 0659 06/08 700 - 06/08 1625 Most Rec ent Temp (C) 36.8 - 37.6 36.4 - 36.6 36.6 (97.8) Pulse 82 - 96 68 - 84 68 Resp 18 - 30 18 18 BP 126/78 - (!) 201/95 112/64 - 143/80 112/64 SpO2 (%) 97 - 100 95 - 98 98 Weight (kg) 63.5 - 68 63.5 kg (140 lb) I/O last 3 completed shifts: In: 2582 [P.O.:582; I.V.:950; IV Piggyback:1050] Out: 750 [Urine:750] Wt Readings from Last 3 Encounters: 06/07/18 63.5 kg (140 lb) 05/03/17 63.5 kg (140 lb) 12/26/16 68 kg (150 lb) Active Lines PIV Line Peripheral IV Line - Single Lumen 06/07/18 1545 Right Anterior (palmar);Medial Forearm ove g-qex-ukafqt catheter system 20 gauge;other (see comments) 1 day Active Tubes/Drains No matching active lines, drains, or airways Physical Exam Constitutional: She is oriented to person, place, and time. No distress. HENT: Head: Normocephalic and atraumatic. Eyes: Conjunctivae are normal. No scleral icterus. Neck: Normal range of motion. Cardiovascular: Normal rate and regular rhythm. Pulmonary/Chest: Effort normal. No respiratory distress. Abdominal: Soft. She exhibits no distension. There is no tenderness. Musculoskeletal: Normal range of motion. She exhibits no edema. Neurological: She is alert and oriented to person, place, and time. Skin: Skin is warm and dry. She is not diaphoretic. Psychiatric: Affect normal. 24 HOUR LABS: Recent Results (from the past 24 hour(s)) Troponin I Result Value Ref Range Troponin I 0.307 (AA) 0.000 - 0.069 ng/mL Troponin I Result Value Ref Range Troponin I 0.293 (AA) 0.000 - 0.069 ng/mL Troponin I Result Value Ref Range Troponin I 0.311 (AA) 0.000 - 0.069 ng/mL Renal Function Panel Result Value Ref Range NA 137 135 - 145 mmol/L K 3.6 3.5 - 5.0 mmol/L CL 103 99 - 109 mmol/L CO2 23 21 - 28 mmol/L ANION GAP 11 5 - 16 mmol/L CALCIUM 9.0 8.5 - 10.2 mg/dL ALBUMIN 4.4 3.3 - 4.8 g/dL BUN 10 8 - 25 mg/dL Creatinine, Serum/Plasma 0.78 0.50 - 1.00 mg/dL GLUCOSE 111 (H) 65 - 99 mg/dL PHOSPHORUS 2.8 2.6 - 4.4 mg/dL Estimated GFR 81 (L) >=90 mL/min/1.73m2 Magnesium Result Value Ref Range MG 1.8 1.7 - 2.4 mg/dL Troponin I Result Value Ref Range Troponin I 0.260 (AA) 0.000 - 0.069 ng/mL ECHO Complete Result Value Ref Range LVEF-TTE TRANSTHORACIC ECHO 45 % BASELINE BLOOD PRESSURE 143/80 mmHg Patient Weight (lbs) 140 lb Patient Height 68 in RA PRESSURE 3 mmHg LVIDd 4.45 cm FS 21 % LA volume 64.9 mL Ascending aorta 2.9 cm AV mean gradient 5 mmHg Aortic Valve Area by Continuity VTI 2.6 cm2 LVOT diameter 2.1 cm LVOT peak padmini 103 cm/s LVOT peak VTI 20.9 cm AV peak padmini 150 cm/s AV VTI 27.8 cm AV peak gradient 9 mmHg MV peak gradient 2.26 mmHg LA Volume Index 37 mL/m2 AV LVOT Peak Gradient 4 mmHg AV LVOT Mean Gradient 2 mmHg TR Peak Gradient 19 mmHg TR Velocity 217 cm LV Puga's Biplane EF 51 % LV ED Volume (Puga's) 88.1 ml LV ED Volume Index 50 ml/m2 LV ES Volume 43.6 ml LVOT Mean Velocity 68.4 cm/s RVSP Estimated 22 mmHg MV E' Lateral Velocity 4.9 cm/s MV E' Septal Velocity 3.7 cm/s MV Deceleration Time 391 msec MV E/A Ratio 0.59 MV Peak A-Wave 127 cm/s MV Peak E-Wave 75.2 cm/s AV Mean Velocity 103 cm/s LA/Aorta Ratio 1.19 LA Area 20.3 cm2 LA Systolic Pressure 21.18 mmHg MV E/E SEPTAL 20.32 MV E/E LATERAL 15.35 LA Major 0.278 cm LV ES Volume Index 25 ml/m2 Cardiac Output 5.57 l/min Cardiac Index 3.16 l/min/m2 Heart Rate 74 Aortic Root Diameter 3.2 cm IVS Diastolic Thickness MM 1.29 cm LVPW Diastolic Thickness MM 0.88 cm IVS Systolic Thickness MM 1.52 cm LV Systolic Diameter MM 3.52 cm LVPW Systolic Thickness MM 0.87 cm LA Systolic Diameter MM 3.8 cm No results found for: POCGLU All pertinent labs and imaging have been reviewed. Please refer to the Assessment and Plan for details on management. I spent 35 minutes with the patient and on the patient's unit, with over 50% spent in coun seling and/or coordination of care. Please refer to the Assessment and Plan for details. Electronically signed by: Michael Olson MD 06/08/2018 16:25 Portions of this chart may have been created with [employer] voice recognition software. Occasi onal wrong-word or sound-alike substitutions may have occurred due to the inherent meyers itations of voice recognition software. Please read the chart carefully and recognize, using context, where these substitutions have occurred Shad Elliott MD - 10:22 AM PDT PATIENT NAME: Smitha Fletcher : 1955: AGE: 62 y.o. ADMISSION DATE: 06/07/2018 Hospital Day: Hospital Day: 2 Code Status: Full Code DATE OF SERVICE: 06/08/2018 Shad Schuler MD CARDIOLOGY DAILY PROGRESS NOTE PRIMARY HOSPITAL PROBLEM: <principal problem not specified> CHIEF COMPLAINT: multiple - Abdominal pain, CP, elevated troponin, hypertensive urgency, ot her ASSESSMENT AND PLAN Methamphetamine use Assessment & Plan She denies use and suggests that there may have been accidental use from relatives "lacing " the marijuana that she smokes with meth. Counseled. Elevated troponin level Assessment & Plan June 07, 2018: Troponin 0.3. In the setting of severe hypertension and known diffuse coronary disease. No evidence for acute coronary syndrome at this time. See discussion above under chest pain. Will check echo Friday and stress test Friday. Me dical management for now. Till the GI issue sorts out, I'll probably not give heparin unles s she develops what looks like acute coronary syndrome. Right now her troponins are stable at 0.3 and 0.3, 0.2 Polysubstance abuse Assessment & Plan This contributes to the acute presentation especially with methamphetamine probably laced in her marijuana. She is counseled. Chest pain syndrome Assessment & Plan 06/07/18 chest pain sounded esophageal. Abnormal troponin is not a surprise with methamphet amine and super high blood pressures. There is no evidence for an acute coronary syndrome, but she should undergo further risk stratification for her chronic cardiac disease. I'll ge t an echocardiogram tomorrow morning and a nuclear stress on Friday. Hopefully she can ana maría admill and if not then a walking Persantine nuclear. At this time I don't detect major deco mpensated congestive heart. Overall, the chest and abdominal complaints with diarrhea sugge sting gastroenteritis of some sort. ASHD (arteriosclerotic heart disease) Assessment & Plan I suspect her coronary disease is stable and that most of the chest pain is GI but further evaluation is warranted. I suspect the elevated troponin is related to severe hypertension , methamphetamine use and chronic coronary disease with small vessel disease and no acute co ronary syndrome. At this time all recommend a repeat workup with echocardiogram Friday and on Friday a nuclear stress, hopefully a treadmill. Tobacco abuse Assessment & Plan Counseled. Down to 6 cigs a day and wants to quit. Ischemic cardiomyopathy Assessment & Plan No decompensated HF. Need to reassess with echo 06/08. Essential hypertension Assessment & Plan Hypertension was exacerbated by amphetamine use. Will get it under control with medicatio ns and counseling to avoid amphetamines, methamphetamines. Low-sodium diet will help. The meth use was "accidental" - one of the relatives laced her marijuana. Increase lisinopril to 20 mg 2 times a day and increase carvedilol to 12.5 mg 2 times a day . SUBJECTIVE DATA PATIENT SYMPTOMS/24 HOUR EVENTS: Troponins are not evaolving, staying low abnormal 0.2-0.3. No angina. Abdomen is better too. No PND. BP's are improving, not at goal. REVIEW OF SYSTEMS: CV: negative, ; pertinent negatives - chest pain, dyspnea, irregular heart beat and syncope Resp: no cough, shortness of breath, or wheezing GI - better but not normal. OBJECTIVE DATA TELEMETRY: SR, HR's about 80. ECG: SR, old IMI. LVH with non specific ST changes. MEDICATIONS: Reviewed today Scheduled PRN aspirin 81 mg Oral Daily carvedilol 12.5 mg Oral BID WC cefTRIAXone 1 g Intravenous Daily lisinopril 20 mg Oral BID magnesium oxide 400 mg Oral Daily magnesium sulfate 2 g Intravenous Once pantoprazole 40 mg Intravenous BID probiotic formula 1 capsule Oral BID WC sodium chloride 0.9% 100 mL/hr at 06/08/18 0542 acetaminophen, hydrOXYzine hydrochloride, ondansetron, promethazine IMAGING: Reviewed today Xr Chest Pa And Lateral Result Date: 06/07/2018 CHEST TWO VIEWS CLINICAL INFORMATION: Abdominal and chest pain. COMPARISON: CT ANGIOGRAM CH EST W CONTRAST dated 10/27/2016; XR CHEST AP PORTABLE dated 10/27/2016; XR CHEST AP PORTABLE d ated 08/25/2016 FINDINGS: Heart, lungs and vessels normal. No pneumothorax, pleural effusion or adenopathy. No significant bone abnormality. IMPRESSION: Negative chest. Signed by: Ramila avalos MD, Kavon Sign Date/Time: 06/07/2018 9:27 AM LABS: Reviewed today Recent Labs 06/08/18 0921 06/08/18 0316 06/07/18 2051 06/07/18 1135 06/07/18 0910 06/07/18 0903 WBC -- -- -- -- -- 11.6* -- HGB -- -- -- -- -- 15.1 -- HCT -- -- -- -- -- 44.3 -- PLT -- -- -- -- -- 431* -- NA -- 137 -- -- -- 140 -- K -- 3.6 -- -- -- 4.3 -- CL -- 103 -- -- -- 106 -- CO2 -- 23 -- -- -- 22 -- BUN -- 10 -- -- -- 18 -- CREA -- 0.78 -- -- -- 0.80 -- GLU -- 111* -- -- -- 138* -- CALCIUM -- 9.0 -- -- -- 10.1 -- CK -- -- -- -- 85 | 3.6* -- 84 CKMB -- -- -- -- 3.1 -- -- TROPONIN 0.260* 0.311* 0.293* < > -- 0.305* -- < > = values in this interval not displayed. No results found for: CHOL, LDLDIRECT, HDL, TRIG VITAL SIGNS: Reviewed today Vitals Current Average / Min / Max Temp 36.4 C (97.5 F) Temp Min: 36.4 C (97.5 F) Max: 37.6 C (99.6 F) BP 142/90 BP Min: 126/78 Max: 201/95 HR 84 Pulse Av.5 Min: 82 Max: 95 RR 18 Resp Av.9 Min: 18 Max: 30 Sats 96 % on L/min room air Weight 63.5 kg (140 lb) Admit: 68 kg (150 lb) INTAKE/OUTPUT Intake/Output Summary (Last 24 hours) at 06/08/18 1022 Last data filed at 06/08/18 0918 Gross per 24 hour Intake 2582 ml Output 1550 ml Net 1032 ml PHYSICAL EXAM Admit Weight: Weight: 68 kg (150 lb) Current weight: Weight: 63.5 kg (140 lb) Body mass index is 21.29 kg/m. GENERAL: Pleasant, talkative in no acute distress. Sleeping first. Woke easily. Well groom ed today and pleasant. HEENT: Conjunctivae and lids are normal in appearance. Mucous membranes moist without pall or or cyanosis. Same poor dentition. NECK: Supple. No JVD. CHEST: Respiratory effort is normal. Clear to auscultation without crackles, rhonchi, or w heezes. Much better today. CARDIAC: RRR, Normal S1 and S2, NO rubs or gallops.TIMOTHY. HSM ABDOMEN: Soft, non-tender, nondistended with normal, active bowel sounds. B-9 today EXTREMITIES: No clubbing, cyanosis, or edema. PULSES: 1+ NEUROLOGIC: Alert and oriented to time, place and person. Normal affect. Signed by: Shad Schuler MD 06/08/2018, 10:22 Portions of this chart were created with [employer] voice recognition software. Occasional wro ng-word or "sound-alike" substitutions may have occurred due to the inherent limitations of voice recognition software. Please read the chart carefully and recognize, using context, w here those substitutions have occurred.Electronically signed by Shad Schuler MD at 06/08 10:27 AM Rhiannon Irene RN - 06/07/2018 3:09 PM [id number] arrived to floor. Somu nlent. Asking very few questions. Follows directions. Changed into gown. Denies chest pain - mostly upper epigastric down abdomen. Emesis bag given. Lisinopril po given with sips. HTN. SR on monitor. Alarm placed for safety. IVF prepared and vein blew with flush. Electronical ly signed by Rhiannon Marcus RN at 06/07/2018 3:11 PM PDTdocumented in this encounter Plan of Treatment +--------+---------+ + + + | Date | Type | Specialty | Care Team | Description | +--------+---------+ + + + | 10/28/ | Office | Cardiology | Carol, | | | 2019 | Visit | | SALVATORE Moreno [address] | | | | | | [place], | | | | | | [place] [address] | | | | | | [phone] | | | | | | | | +--------+---------+ + + + + + +--------+ + + | Name | Type | Priori | Associated Diagnoses | Date/Time | | | | ty | | | + + +--------+ + + | ECG 12 lead | ECG | STAT | | 06/07/2018 9:56 AM | | | | | | PDT | + + +--------+ + + | ECG 12 lead | ECG | STAT | | 06/07/2018 11:44 AM | | | | | | PDT | + + +--------+ + + | Red Blood Cells | Blood - | Routin | | 06/11/2018 3:18 PM | | ([facility]INTRAOP)-Trans | Nursing | e | | PDT | | fuse | Transfusion | | | | + + +--------+ + + + +------+--------+ + + | Name | Type | Priori | Associated Diagnoses | Order Schedule | | | | ty | | | + +------+--------+ + + | DME: Walker | DME | Routin | NSTEMI (non-ST | Ordered: 06/15/2018 | | | | e | elevated myocardial | | | | | | infarction) (HCC) | | + +------+--------+ + + + + +--------+ + + | Name | Type | Priori | Associated Diagnoses | Order Schedule | | | | ty | | | + + +--------+ + + | [facility] | Outpatient | Routin | NSTEMI (non-ST | Ordered: 06/15/2018 | | Rehab | Referral | e | elevated myocardial | | | | | | infarction) (HCC) | | + + +--------+ + + | Ambulatory Referral | Outpatient | Routin | S/P CABG x 3 | Ordered: 06/15/2018 | | to [facility] Referral | e | | | | [facility] | | | | | + + +--------+ + + documented as of this encounter Procedures + +--------+ + + + | Procedure Name | Priori | Date/Time | Associated Diagnosis | Comments | | | ty | | | | + +--------+ + + + | CBC NO DIFFERENTIAL | Routin | 06/15/2018 | | Results for this | | | e | 9:23 AM | | procedure are in the | | | | PDT | | results section. | + +--------+ + + + | BASIC METABOLIC | Routin | 06/15/2018 | | Results for this | | PANEL | e | 9:23 AM | | procedure are in the | | | | PDT | | results section. | + +--------+ + + + | XR CHEST 2 VIEWS | STAT | 06/15/2018 | | Results for this | | | | 6:26 AM | | procedure are in the | | | | PDT | | results section. | + +--------+ + + + | PRODUCT: RBC | Routin | 06/15/2018 | | Results for this | | | e | 3:53 AM | | procedure are in the | | | | PDT | | results section. | + +--------+ + + + | POC GLUCOSE | Routin | 06/14/2018 | | Results for this | | | e | 4:27 PM | | procedure are in the | | | | PDT | | results section. | + +--------+ + + + | PRODUCT: RBC | STAT | 06/14/2018 | | Results for this | | | | 12:12 PM | | procedure are in the | | | | PDT | | results section. | + +--------+ + + + | POC GLUCOSE | Routin | 06/14/2018 | | Results for this | | | e | 6:27 AM | | procedure are in the | | | | PDT | | results section. | + +--------+ + + + | POC GLUCOSE | Routin | 06/14/2018 | | Results for this | | | e | 2:31 AM | | procedure are in the | | | | PDT | | results section. | + +--------+ + + + | POC GLUCOSE | Routin | 06/13/2018 | | Results for this | | | e | 8:39 PM | | procedure are in the | | | | PDT | | results section. | + +--------+ + + + | POC GLUCOSE | Routin | 06/13/2018 | | Results for this | | | e | 4:09 PM | | procedure are in the | | | | PDT | | results section. | + +--------+ + + + | POC GLUCOSE | Routin | 06/13/2018 | | Results for this | | | e | 11:20 AM | | procedure are in the | | | | PDT | | results section. | + +--------+ + + + | POC GLUCOSE | Routin | 06/13/2018 | | Results for this | | | e | 6:25 AM | | procedure are in the | | | | PDT | | results section. | + +--------+ + + + | XR CHEST AP PORTABLE | Routin | 06/13/2018 | | Results for this | | | e | 6:22 AM | | procedure are in the | | | | PDT | | results section. | + +--------+ + + + | CBC NO DIFFERENTIAL | Routin | 06/13/2018 | | Results for this | | | e | 4:02 AM | | procedure are in the | | | | PDT | | results section. | + +--------+ + + + | BASIC METABOLIC | Routin | 06/13/2018 | | Results for this | | PANEL | e | 4:02 AM | | procedure are in the | | | | PDT | | results section. | + +--------+ + + + | POC GLUCOSE | Routin | 06/13/2018 | | Results for this | | | e | 2:42 AM | | procedure are in the | | | | PDT | | results section. | + +--------+ + + + | POC GLUCOSE | Routin | 06/12/2018 | | Results for this | | | e | 10:00 PM | | procedure are in the | | | | PDT | | results section. | + +--------+ + + + | POC GLUCOSE | Routin | 06/12/2018 | | Results for this | | | e | 4:41 PM | | procedure are in the | | | | PDT | | results section. | + +--------+ + + + | POC GLUCOSE | Routin | 06/12/2018 | | Results for this | | | e | 4:02 PM | | procedure are in the | | | | PDT | | results section. | + +--------+ + + + | POC GLUCOSE | Routin | 06/12/2018 | | Results for this | | | e | 12:27 PM | | procedure are in the | | | | PDT | | results section. | + +--------+ + + + | POC GLUCOSE | Routin | 06/12/2018 | | Results for this | | | e | 6:59 AM | | procedure are in the | | | | PDT | | results section. | + +--------+ + + + | POC GLUCOSE | Routin | 06/12/2018 | | Results for this | | | e | 6:00 AM | | procedure are in the | | | | PDT | | results section. | + +--------+ + + + | POC GLUCOSE | Routin | 06/12/2018 | | Results for this | | | e | 5:08 AM | | procedure are in the | | | | PDT | | results section. | + +--------+ + + + | XR CHEST AP PORTABLE | Routin | 06/12/2018 | | Results for this | | | e | 3:33 AM | | procedure are in the | | | | PDT | | results section. | + +--------+ + + + | POC GLUCOSE | Routin | 06/12/2018 | | Results for this | | | e | 3:15 AM | | procedure are in the | | | | PDT | | results section. | + +--------+ + + + | ECG 12 LEAD | Routin | 06/12/2018 | | Results for this | | | e | 3:12 AM | | procedure are in the | | | | PDT | | results section. | + +--------+ + + + | CBC NO DIFFERENTIAL | Routin | 06/12/2018 | | Results for this | | | e | 3:12 AM | | procedure are in the | | | | PDT | | results section. | + +--------+ + + + | BASIC METABOLIC | Routin | 06/12/2018 | | Results for this | | PANEL | e | 3:12 AM | | procedure are in the | | | | PDT | | results section. | + +--------+ + + + | POC GLUCOSE | Routin | 06/12/2018 | | Results for this | | | e | 2:39 AM | | procedure are in the | | | | PDT | | results section. | + +--------+ + + + | POC GLUCOSE | Routin | 06/12/2018 | | Results for this | | | e | 1:35 AM | | procedure are in the | | | | PDT | | results section. | + +--------+ + + + | POC GLUCOSE | Routin | 06/11/2018 | | Results for this | | | e | 11:58 PM | | procedure are in the | | | | PDT | | results section. | + +--------+ + + + | POC GLUCOSE | Routin | 06/11/2018 | | Results for this | | | e | 11:19 PM | | procedure are in the | | | | PDT | | results section. | + +--------+ + + + | GLUCOSE, RESPIRATORY | STAT | 06/11/2018 | | Results for this | | | | 11:01 PM | | procedure are in the | | | | PDT | | results section. | + +--------+ + + + | BLOOD GAS, ARTERIAL | STAT | 06/11/2018 | | Results for this | | | | 11:01 PM | | procedure are in the | | | | PDT | | results section. | + +--------+ + + + | POTASSIUM, WHOLE | STAT | 06/11/2018 | | Results for this | | BLOOD | | 11:01 PM | | procedure are in the | | | | PDT | | results section. | + +--------+ + + + | POC GLUCOSE | Routin | 06/11/2018 | | Results for this | | | e | 9:56 PM | | procedure are in the | | | | PDT | | results section. | + +--------+ + + + | POC GLUCOSE | Routin | 06/11/2018 | | Results for this | | | e | 8:29 PM | | procedure are in the | | | | PDT | | results section. | + +--------+ + + + | POTASSIUM | STAT | 06/11/2018 | | Results for this | | | | 7:58 PM | | procedure are in the | | | | PDT | | results section. | + +--------+ + + + | POC GLUCOSE | Routin | 06/11/2018 | | Results for this | | | e | 6:52 PM | | procedure are in the | | | | PDT | | results section. | + +--------+ + + + | ECG 12 LEAD | Routin | 06/11/2018 | | Results for this | | | e | 4:59 PM | | procedure are in the | | | | PDT | | results section. | + +--------+ + + + | PTT | STAT | 06/11/2018 | | Results for this | | | | 4:37 PM | | procedure are in the | | | | PDT | | results section. | + +--------+ + + + | PROTIME INR | STAT | 06/11/2018 | | Results for this | | | | 4:37 PM | | procedure are in the | | | | PDT | | results section. | + +--------+ + + + | CBC NO DIFFERENTIAL | STAT | 06/11/2018 | | Results for this | | | | 4:37 PM | | procedure are in the | | | | PDT | | results section. | + +--------+ + + + | COMPREHENSIVE | STAT | 06/11/2018 | | Results for this | | METABOLIC PANEL | | 4:37 PM | | procedure are in the | | | | PDT | | results section. | + +--------+ + + + | LACTIC ACID, | STAT | 06/11/2018 | | Results for this | | ARTERIAL, | | 4:36 PM | | procedure are in the | | RESPIRATORY | | PDT | | results section. | + +--------+ + + + | GLUCOSE, RESPIRATORY | STAT | 06/11/2018 | | Results for this | | | | 4:36 PM | | procedure are in the | | | | PDT | | results section. | + +--------+ + + + | CALCIUM, IONIZED, | STAT | 06/11/2018 | | Results for this | | RESPIRATORY | | 4:36 PM | | procedure are in the | | | | PDT | | results section. | + +--------+ + + + | BLOOD GAS, ARTERIAL | STAT | 06/11/2018 | | Results for this | | | | 4:36 PM | | procedure are in the | | | | PDT | | results section. | + +--------+ + + + | XR CHEST AP PORTABLE | STAT | 06/11/2018 | | Results for this | | | | 4:34 PM | | procedure are in the | | | | PDT | | results section. | + +--------+ + + + | LACTIC ACID, | Routin | 06/11/2018 | | Results for this | | ARTERIAL, SURGERY | e | 3:25 PM | | procedure are in the | | | | PDT | | results section. | + +--------+ + + + | BLOOD GAS , | Routin | 06/11/2018 | | Results for this | | ARTERIAL, SURGERY | e | 3:25 PM | | procedure are in the | | | | PDT | | results section. | + +--------+ + + + | DIC PANEL | STAT | 06/11/2018 | | Results for this | | | | 2:56 PM | | procedure are in the | | | | PDT | | results section. | + +--------+ + + + | LACTIC ACID, | Routin | 06/11/2018 | | Results for this | | ARTERIAL, SURGERY | e | 2:50 PM | | procedure are in the | | | | PDT | | results section. | + +--------+ + + + | BLOOD GAS , | Routin | 06/11/2018 | | Results for this | | ARTERIAL, SURGERY | e | 2:50 PM | | procedure are in the | | | | PDT | | results section. | + +--------+ + + + | LACTIC ACID, | Routin | 06/11/2018 | | Results for this | | ARTERIAL, SURGERY | e | 2:00 PM | | procedure are in the | | | | PDT | | results section. | + +--------+ + + + | BLOOD GAS , | Routin | 06/11/2018 | | Results for this | | ARTERIAL, SURGERY | e | 2:00 PM | | procedure are in the | | | | PDT | | results section. | + +--------+ + + + | LACTIC ACID, | Routin | 06/11/2018 | | Results for this | | ARTERIAL, SURGERY | e | 1:34 PM | | procedure are in the | | | | PDT | | results section. | + +--------+ + + + | BLOOD GAS , | Routin | 06/11/2018 | | Results for this | | ARTERIAL, SURGERY | e | 1:34 PM | | procedure are in the | | | | PDT | | results section. | + +--------+ + + + | ECHO TRANSESOPHAGEAL | Routin | 06/11/2018 | | Results for this | | ([place]) | e | 1:05 PM | | procedure are in the | | | | PDT | | results section. | + +--------+ + + + | LACTIC ACID, | Routin | 06/11/2018 | | Results for this | | ARTERIAL, SURGERY | e | 1:00 PM | | procedure are in the | | | | PDT | | results section. | + +--------+ + + + | CHEMISTRY PROFILE, A | Routin | 06/11/2018 | | Results for this | | AND V, SURGERY | e | 1:00 PM | | procedure are in the | | | | PDT | | results section. | + +--------+ + + + | LACTIC ACID, | Routin | 06/11/2018 | | Results for this | | ARTERIAL, SURGERY | e | 10:35 AM | | procedure are in the | | | | PDT | | results section. | + +--------+ + + + | BLOOD GAS , | Routin | 06/11/2018 | | Results for this | | ARTERIAL, SURGERY | e | 10:35 AM | | procedure are in the | | | | PDT | | results section. | + +--------+ + + + | CORONARY ARTERY | | 06/11/2018 | CVD | | | BYPASS GRAFT | | 9:34 AM | (cardiovascular | | | | | PDT | disease) | | + +--------+ + + + +---+--------+ | | | | | Specia | | | l | | | Needs | | | [place]ITA | +---+--------+ + +--------+ +---+ + | TYPE AND SCREEN | STAT | 06/11/2018 | | Results for this | | | | 5:13 AM | | procedure are in the | | | | PDT | | results section. | + +--------+ +---+ + | POC GLUCOSE | Routin | 06/11/2018 | | Results for this | | | e | 3:12 AM | | procedure are in the | | | | PDT | | results section. | + +--------+ +---+ + | PTT | Timed | 06/11/2018 | | Results for this | | | | 3:12 AM | | procedure are in the | | | | PDT | | results section. | + +--------+ +---+ + | PROTIME INR | Timed | 06/11/2018 | | Results for this | | | | 3:12 AM | | procedure are in the | | | | PDT | | results section. | + +--------+ +---+ + | CBC NO DIFFERENTIAL | Timed | 06/11/2018 | | Results for this | | | | 3:12 AM | | procedure are in the | | | | PDT | | results section. | + +--------+ +---+ + | BASIC METABOLIC | Timed | 06/11/2018 | | Results for this | | PANEL | | 3:12 AM | | procedure are in the | | | | PDT | | results section. | + +--------+ +---+ + | MRSA NAAT | Routin | 06/11/2018 | | Results for this | | | e | 12:10 AM | | procedure are in the | | | | PDT | | results section. | + +--------+ +---+ + | URINALYSIS WITH | Routin | 06/11/2018 | | Results for this | | MICROSCOPIC WITH | e | 12:00 AM | | procedure are in the | | CULTURE IF INDICATED | | PDT | | results section. | + +--------+ +---+ + | POC GLUCOSE | Routin | 06/10/2018 | | Results for this | | | e | 10:54 PM | | procedure are in the | | | | PDT | | results section. | + +--------+ +---+ + | PTT | Routin | 06/10/2018 | | Results for this | | | e | 8:03 PM | | procedure are in the | | | | PDT | | results section. | + +--------+ +---+ + | PROTIME INR | Routin | 06/10/2018 | | Results for this | | | e | 5:22 PM | | procedure are in the | | | | PDT | | results section. | + +--------+ +---+ + | BASIC METABOLIC | Routin | 06/10/2018 | | Results for this | | PANEL | e | 5:22 PM | | procedure are in the | | | | PDT | | results section. | + +--------+ +---+ + | POC GLUCOSE | Routin | 06/10/2018 | | Results for this | | | e | 4:23 PM | | procedure are in the | | | | PDT | | results section. | + +--------+ +---+ + | HEPATITIS PANEL, | Routin | 06/10/2018 | | Results for this | | ACUTE | e | 2:09 PM | | procedure are in the | | | | PDT | | results section. | + +--------+ +---+ + | PTT | Timed | 06/10/2018 | | Results for this | | | | 2:09 PM | | procedure are in the | | | | PDT | | results section. | + +--------+ +---+ + | ECG 12 LEAD | Routin | 06/10/2018 | | Results for this | | | e | 12:10 PM | | procedure are in the | | | | PDT | | results section. | + +--------+ +---+ + | PFT PULMONARY | KIRAN | 06/10/2018 | | Results for this | | FUNCTION TESTING | | 11:56 AM | | procedure are in the | | ORDERS | | PDT | | results section. | + +--------+ +---+ + | HEPATITIS PANEL, | Routin | 06/10/2018 | | Results for this | | CHRONIC | e | 6:55 AM | | procedure are in the | | | | PDT | | results section. | + +--------+ +---+ + | PTT | Timed | 06/10/2018 | | Results for this | | | | 6:55 AM | | procedure are in the | | | | PDT | | results section. | + +--------+ +---+ + | HEMOGLOBIN A1C | Routin | 06/10/2018 | | Results for this | | | e | 6:55 AM | | procedure are in the | | | | PDT | | results section. | + +--------+ +---+ + | ABO RH | Routin | 06/10/2018 | | Results for this | | | e | 6:49 AM | | procedure are in the | | | | PDT | | results section. | + +--------+ +---+ + | ANTIBODY SCREEN | Routin | 06/10/2018 | | Results for this | | | e | 6:49 AM | | procedure are in the | | | | PDT | | results section. | + +--------+ +---+ + | ANTIBODY ID | STAT | 06/10/2018 | | Results for this | | | | 12:46 AM | | procedure are in the | | | | PDT | | results section. | + +--------+ +---+ + | TYPE AND SCREEN | STAT | 06/10/2018 | | Results for this | | | | 12:46 AM | | procedure are in the | | | | PDT | | results section. | + +--------+ +---+ + | PTT | Routin | 06/10/2018 | | Results for this | | | e | 12:46 AM | | procedure are in the | | | | PDT | | results section. | + +--------+ +---+ + | CV LV | Routin | 06/09/2018 | | Results for this | | | e | 1:09 PM | | procedure are in the | | | | PDT | | results section. | + +--------+ +---+ + | CV LHC | Routin | 06/09/2018 | | Results for this | | | e | 1:09 PM | | procedure are in the | | | | PDT | | results section. | + +--------+ +---+ + | CV COR ANGIO | Routin | 06/09/2018 | | Results for this | | | e | 1:09 PM | | procedure are in the | | | | PDT | | results section. | + +--------+ +---+ + | LVEF VALUE | Routin | 06/09/2018 | | Results for this | | | e | 1:00 PM | | procedure are in the | | | | PDT | | results section. | + +--------+ +---+ + | NM NUCLEAR STRESS | Routin | 06/09/2018 | | Results for this | | TEST (EXERCISE) | e | 10:45 AM | | procedure are in the | | | | PDT | | results section. | + +--------+ +---+ + | ECG 12 LEAD | Routin | 06/09/2018 | | Results for this | | | e | 4:21 AM | | procedure are in the | | | | PDT | | results section. | + +--------+ +---+ + | CBC WITH | Routin | 06/09/2018 | | Results for this | | DIFFERENTIAL | e | 3:07 AM | | procedure are in the | | | | PDT | | results section. | + +--------+ +---+ + | MAGNESIUM | Routin | 06/09/2018 | | Results for this | | | e | 3:07 AM | | procedure are in the | | | | PDT | | results section. | + +--------+ +---+ + | BASIC METABOLIC | Routin | 06/09/2018 | | Results for this | | PANEL | e | 3:07 AM | | procedure are in the | | | | PDT | | results section. | + +--------+ +---+ + | ECHO COMPLETE | Routin | 06/08/2018 | | Results for this | | | e | 11:52 AM | | procedure are in the | | | | PDT | | results section. | + +--------+ +---+ + | TROPONIN I | STAT | 06/08/2018 | | Results for this | | | | 9:21 AM | | procedure are in the | | | | PDT | | results section. | + +--------+ +---+ + | ECG 12 LEAD | Routin | 06/08/2018 | | Results for this | | | e | 4:30 AM | | procedure are in the | | | | PDT | | results section. | + +--------+ +---+ + | TROPONIN I | STAT | 06/08/2018 | | Results for this | | | | 3:16 AM | | procedure are in the | | | | PDT | | results section. | + +--------+ +---+ + | MAGNESIUM | Routin | 06/08/2018 | | Results for this | | | e | 3:16 AM | | procedure are in the | | | | PDT | | results section. | + +--------+ +---+ + | RENAL FUNCTION PANEL | Routin | 06/08/2018 | | Results for this | | | e | 3:16 AM | | procedure are in the | | | | PDT | | results section. | + +--------+ +---+ + | TROPONIN I | STAT | 06/07/2018 | | Results for this | | | | 8:51 PM | | procedure are in the | | | | PDT | | results section. | + +--------+ +---+ + | TROPONIN I | STAT | 06/07/2018 | | Results for this | | | | 4:26 PM | | procedure are in the | | | | PDT | | results section. | + +--------+ +---+ + | ECG 12 LEAD | STAT | 06/07/2018 | | | | | | 11:44 AM | | | | | | PDT | | | + +--------+ +---+ + | CK TOTAL AND CK-MB | Add-On | 06/07/2018 | | Results for this | | | | 11:35 AM | | procedure are in the | | | | PDT | | results section. | + +--------+ +---+ + | ECG 12 LEAD | STAT | 06/07/2018 | | | | | | 9:56 AM | | | | | | PDT | | | + +--------+ +---+ + | XR CHEST PA AND | STAT | 06/07/2018 | | Results for this | | LATERAL | | 9:22 AM | | procedure are in the | | | | PDT | | results section. | + +--------+ +---+ + | DRUGS OF ABUSE, | STAT | 06/07/2018 | | Results for this | | SCREEN, URINE | | 9:14 AM | | procedure are in the | | | | PDT | | results section. | + +--------+ +---+ + | TROPONIN I | STAT | 06/07/2018 | | Results for this | | | | 9:10 AM | | procedure are in the | | | | PDT | | results section. | + +--------+ +---+ + | CBC WITH | STAT | 06/07/2018 | | Results for this | | DIFFERENTIAL | | 9:10 AM | | procedure are in the | | | | PDT | | results section. | + +--------+ +---+ + | MYOGLOBIN | STAT | 06/07/2018 | | Results for this | | | | 9:10 AM | | procedure are in the | | | | PDT | | results section. | + +--------+ +---+ + | LIPASE | STAT | 06/07/2018 | | Results for this | | | | 9:10 AM | | procedure are in the | | | | PDT | | results section. | + +--------+ +---+ + | COMPREHENSIVE | STAT | 06/07/2018 | | Results for this | | METABOLIC PANEL | | 9:10 AM | | procedure are in the | | | | PDT | | results section. | + +--------+ +---+ + | EXTRA HOLD TUBE(S) | Routin | 06/07/2018 | | Results for this | | | e | 9:10 AM | | procedure are in the | | | | PDT | | results section. | + +--------+ +---+ + | URINALYSIS WITH | STAT | 06/07/2018 | | Results for this | | MICROSCOPIC WITH | | 9:03 AM | | procedure are in the | | CULTURE IF INDICATED | | PDT | | results section. | + +--------+ +---+ + | CK TOTAL | Add-On | 06/07/2018 | | Results for this | | | | 9:03 AM | | procedure are in the | | | | PDT | | results section. | + +--------+ +---+ + | ARRHYTHMIA MONITOR - | | 06/07/2018 | | Results for this | | EXTERNAL SCAN | | 12:00 AM | | procedure are in the | | | | PDT | | results section. | + +--------+ +---+ + documented in this encounter Results CBC no Differential (06/15/2018 9:23 AM PDT) + + + + + + | Component | Value | Ref Range | Performed | Pathologist | | | | | At | Signature | + + + + + + | WBC | 13.9 (H) | 3.8 - 11.0 K/uL | [facility] | | [facility] | | | | | | [facility] | | | | | | [facility] | | + + + + + + | RBC | 3.24 (L) | 3.70 - 5.10 | [facility] | | | | | M/uL | [facility] | | [facility] | | | | | | [facility] | | | | | | [facility] | | | | | | [facility] | | + + + + + + | Hemoglobin | 9.5 (L) | 11.3 - 15.5 | [facility] | | | | | g/dL | [facility] | | | [facility] | | | | | [facility] | | | | | | [facility] | | | | | | [facility] | | + + + + + + | Hct | 28.8 (L) | 34.0 - 46.0 % | [facility] | [facility] | [facility] | | | | | | [facility] | | | | | | [facility] | | + + + + + + | MCV | 89.0 | 80.0 - 100.0 fL | [facility] | | [facility] | [facility] | | | | | | [facility] | | | | | | [facility] | | + + + + + + | MCH | 29.3 | 27.0 - 34.0 pg | [facility] | | [facility] | | | | [facility] | | | | | | [facility] | | | | | | [facility] | | + + + + + + | MCHC | 32.9 | 32.0 - 35.5 | [facility] | | | | | g/dL | [facility] | | | | [facility] | | | | | | [facility] | | | | | | [facility] | | | | | | [facility] | | + + + + + + | RDW-CV | 15.5 | 11.0 - 15.5 % | [facility] | | | | [facility] | | | | [facility] | | | | | | [facility] | | | | | | [facility] | | + + + + + + | Platelet | 231 | 150 - 400 K/uL | [facility] | | | Count | | | [facility] | | | | | | [facility] | | | | | | [facility] | | | | | | [facility] | | | | | | [facility] | | + + + + + + | MPV | 7.2 (L)Comment: | 7.5 - 11.2 fL | [facility] | | | | Performed by [facility] [address] | | [facility] | | | | [address] [place] | | HEART | | | | [phone] | | [facility]ICAL | | | | | | CENTER | | | | | | LABORATORY | | | | | | [facility] | | + + + + + + + + | Specimen | + + | Blood specimen | | (specimen) | + + + + + + + | Performing | Address | City/State/Zipcode | Phone Number | | Organization | | | | + + + + + | [facility] | [address] | [place] [address] | | | [facility] | | | | | [facility] | | | | + + + + + Basic Metabolic Panel (06/15/2018 9:23 AM PDT) + + + + + + | Component | Value | Ref Range | Performed | Pathologist | | | | | At | Signature | + + + + + + | Na | 136 | 135 - 145 | [facility] | | | | | mmol/L | [facility] | | [facility] | | | | | | [facility] | | | | | | [facility] | | | | | | LAB[facility]AT[facility] | | | | | | [facility] | | + + + + + + | K | 4.6 | 3.5 - 5.0 | [facility] | | | | | mmol/L | [facility] | | | | | [facility] | | | | | | [facility] | | | | | | [facility] | | | | | | [facility] | | | | | | [facility] | | + + + + + + | Cl | 100 | 99 - 109 mmol/L | [facility] | [facility] | | | | | [facility] | | | | | [facility] | | | | | | [facility] | | | | | | [facility] | | + + + + + + | CO2 | 26 | 21 - 28 mmol/L | [facility] | | | | | [facility] | | | | | [facility] | | | | | | [facility] | | | | | | [facility] | | + + + + + + | Anion Gap | 10 | 5 - 16 mmol/L | [facility] | | | | [facility] | | | | | [facility] | | | | | | [facility] | | | | | | [facility] | | + + + + + + | Calcium | 8.7 | 8.5 - 10.2 | [facility] | | | | | mg/dL | [facility] | | | | | | [facility] | | | | | | [facility]ENTER | | | | | | LABORATORY | | | | | | [facility] | | + + + + + + | BUN | 47 (H) | 8 - 25 mg/dL | [facility] | | [facility] | | | | | | [facility] | | | | | | [facility] | | | | | | LABORATORY | | | | | | [facility] | | + + + + + + | Creatinine | 1.47 (H) | 0.50 - 1.00 | [facility] | | | | | mg/dL | [facility] | | | | | | [facility] | | | | | | [facility] | | | | | | LABORATORY | | | | | | [facility] | | + + + + + + | Glucose | 135 (H) | 65 - 99 mg/dL | [facility] | [facility] | [facility] | | | | | | [facility] | | | | | | [facility]ENTER | | | | | | LABORATORY | | | | | | [facility] | | + + + + + + | Estimated | 38 (L)Comment: eGFR<60 | >=90 | [facility] | | | GFR | consistent with impaired | mL/min/1.73m2 | [facility] | | | | [facility] | | HEART | | | | function.Performed by | | MEDICAL | | | | [facility] [address], | | CENTER | | | | [place] [address] | | LABORATORY | | | | | | [facility] | | + + + + + + + + | Specimen | + + | Blood specimen | | (specimen) | + + + + + + + | Performing | Address | City/State/Zipcode | Phone Number | | Organization | | | | + + + + + | [facility] | [address] | [place] [address] | | | [facility] | | | | | [place] | | | | + + + + + XR Chest 2 Vws (06/15/2018 6:26 AM PDT) + + | Specimen | + + | | + + + + + | Narrative | Performed At | + + + | CHEST TWO VIEWS CLINICAL INFORMATION: Follow up effusion. | [facility] | | COMPARISON: 06/13/2018. IMPRESSION: 1. Mediastinal and chest | | | drains have been removed. 2. There is improved aeration bilaterally. | | | Decreased perihilar reticular and ground-glass opacities. Patchy | | | bibasilar atelectasis and suspect minimal pleural effusions. 3. | | | Cardiomediastinal contours are stable. 4. No pneumothorax. | | | Signed by: MD Won, Arabella Sign Date/Time: 06/15/2018 6:31 AM | | + + + + + | Procedure Note | + + | Tim, Rad Results In - 06/15/2018 6:35 AM PDT | | CHEST TWO VIEWS | | | | CLINICAL INFORMATION: | | Follow up effusion. | | | | COMPARISON: | | 06/13/2018. | | | | IMPRESSION: | | 1. Mediastinal and chest drains have been removed. | | 2. There is improved aeration bilaterally. Decreased perihilar | | reticular and ground-glass opacities. Patchy bibasilar atelectasis | | and suspect minimal pleural effusions. | | 3. Cardiomediastinal contours are stable. | | 4. No pneumothorax. | | | | | | | | Signed by: MD Upton Paula | | Sign Date/Time: 06/15/2018 6:31 AM | + + + +---------+ + + | Performing | Address | City/State/Zipcode | Phone Number | | Organization | | | | + +---------+ + + | [facility] | | | | + +---------+ + + Red Blood Cells (PRBC) - Crossmatch (06/15/2018 3:53 AM PDT) + + + + + + | Component | Value | Ref Range | Performed | Pathologist | | | | | At | Signature | + + + + + + | Product | [id number] | | REFERENCE | | | Code | | | [facility] | | | | | | [facility] | | | | | | [facility] | | | | | | [facility] | | | | | | [facility] | | + + + + + + | UNIT # | [id number] | | REFERENCE | | | | | | [facility] | | | | | | [facility] | | | | | | [facility] | | | | | | [facility] | | | | | | [facility] | | + + + + + + | UNIT ABO | O | | REFERENCE | | | | | | [facility] | | | | | | [facility] | | | | | | [facility] | | | | | | [facility] | | | | | | [facility] | | + + + + + + | UNIT RH | NEG | | REFERENCE | | | | | | [facility] | | | | | | [facility] | | | | | | [facility] | | | | | | [facility] | | | | | | [facility] | | + + + + + + | CROSSMATCH | Compatible | | REFERENCE | | | INTERP | | | [facility] | | | | | | [facility] | | | | | | [facility] | | | | | | [facility] | | | | | | [facility]ENTER | | + + + + + + | Unit Status | RE | | REFERENCE | | | | | | [facility] | | | | | | [facility] | | | | | | [facility] | | | | | | [facility] | | | | | | [facility] | | + + + + + + | Blood | [id number] | | REFERENCE | | | Product | | | [facility] | | | Expiration | | | [facility] | | | Date and | | | [facility] | | | Time | | | [facility] | | | | | | CENTER | | + + + + + + | Product | [id number] | | REFERENCE | | | Blood Type | | | [facility] | | | Barcode | | | [facility] | | | | | | [facility] | | | | | | [facility] | | | | | | [facility] | | + + + + + + + + | Specimen | + + | | + + + + + | Narrative | Performed At | + + + | Specimen Expiration Date: [id number] | REFERENCE LAB | | | [place] | | | [facility] | | | [facility] | + + + + + + + + | Performing | Address | City/State/Zipcode | Phone Number | | Organization | | | | + + + + + | REFERENCE [facility] | [address] | [place] | [phone] | | [facility] | | | | | [facility] | | | | | [facility] | | | | + + + + + POC Glucose (06/14/2018 4:27 PM PDT) + + + + + + | Component | Value | Ref Range | Performed | Pathologist | | | | | At | Signature | + + + + + + | Glucose, | 127 (H)Comment: | 65 - 99 mg/dL | [facility] | | | POC | Performed by [facility] [address] | | SACRED | | | | [address] [place] | | HEART | | | | [address] | | MEDICAL | | | | | | CENTER | | | | | | LABORATORY | | | | | | [place] | | + + + + + + + + | Specimen | + + | Blood specimen | | (specimen) | + + + + + + + | Performing | Address | City/State/Zipcode | Phone Number | | Organization | | | | + + + + + | [facility] | [address] | [place] [address] | | | [facility] | | | | | [place] | | | | + + + + + Red Blood Cells (06/14/2018 12:12 PM PDT) + + + + + + | Component | Value | Ref Range | Performed | Pathologist | | | | | At | Signature | + + + + + + | Product | [id number] | | REFERENCE | | | Code | | | [facility] | | | | | | [facility] | | | | | | [facility] | | | | | | [facility] | | | | | | CENTER | | + + + + + + | UNIT # | [id number] | | REFERENCE | | | | | | [facility] | | | | | | [facility] | | | | | | [facility] | | | | | | [facility] | | | | | | [facility] | | + + + + + + | UNIT ABO | O | | REFERENCE | | | | | | [facility] | | | | | | [facility] | | | | | | [facility] | | | | | | BLO[facility] | | | | | | CENTER | | + + + + + + | UNIT RH | NEG | | REFERENCE | | | | | | [facility] | | | | | | [facility] | | | | | | [facility] | | | | | | [facility] | | | | | | CENTER | | + + + + + + | CROSSMATCH | Compatible | | REFERENCE | | | INTERP | | | [facility] | | | | | | [facility] | | | | | | [facility] | | | | | | [facility] | | | | | | CENTER | | + + + + + + | Unit Status | IS | | REFERENCE | | | | | | [facility] | | | | | | [facility] | | | | | | [facility] | | | | | | [facility] | | | | | | CENTER | | + + + + + + | Blood | [id number] | | REFERENCE | | | Product | | | [facility] | | | Expiration | | | [facility] | | | Date and | | | [facility] | | | Time | | | BLOOD | | | | | | CENTER | | + + + + + + | Product | [id number] | | REFERENCE | | | Blood Type | | | [facility] | | | Barcode | | | [facility] | | | | | | [facility] | | | | | | [facility] | | | | | | CENTER | | + + + + + + | Product | [id number] | | REFERENCE | | | Code | | | [facility] | | | | | | [facility] | | | | | | [facility] | | | | | | [facility] | | | | | | CENTER | | + + + + + + | UNIT # | [id number] | | REFERENCE | | | | | | [facility] | | | | | | [facility] | | | | | | [facility] | | | | | | [facility] | | | | | | [facility] | | + + + + + + | UNIT ABO | O | | REFERENCE | | | | | | [facility] | | | | | | [facility] | | | | | | [facility] | | | | | | [facility] | | | | | | CENTER | | + + + + + + | UNIT RH | NEG | | REFERENCE | | | | | | [facility] | | | | | | [facility] | | | | | | [facility] | | | | | | [facility] | | | | | | CENTER | | + + + + + + | CROSSMATCH | Compatible | | REFERENCE | | | INTERP | | | [facility] | | | | | | [facility] | | | | | | [facility] | | | | | | [facility] | | | | | | CENTER | | + + + + + + | Unit Status | IS | | REFERENCE | | | | | | [facility] | | | | | | [facility] | | | | | | [facility] | | | | | | [facility] | | | | | | CENTER | | + + + + + + | Blood | [id number] | | REFERENCE | | | Product | | | [facility] | | | Expiration | | | [facility] | | | Date and | | | [facility] | | | Time | | | B[facility] | | | | | | CENTER | | + + + + + + | Product | [id number] | | REFERENCE | | | Blood Type | | | [facility] | | | Barcode | | | [facility] | | | | | | [facility] | | | | | | [facility] | | | | | | CENTER | | + + + + + + + + | Specimen | + + | | + + + + + | Narrative | Performed At | + + + | Specimen Expiration Date: [id number] | REFERENCE LAB | | | [facility] | | | [facility] | | | [facility] | + + + + + + + + | Performing | Address | City/State/Zipcode | Phone Number | | Organization | | | | + + + + + | RE[facility]ENCE LAB | [address] | [place] [address] | [phone] | | [facility] | | | | | [facility] | | | | | [facility] | | | | + + + + + POC Glucose (06/14/2018 6:27 AM PDT) + + + + + + | Component | Value | Ref Range | Performed | Pathologist | | | | | At | Signature | + + + + + + | Glucose, | 142 (H)Comment: | 65 - 99 mg/dL | [facility] | | | POC | Performed by [facility] [address] | | [address] | | | | [address], [place] | | HEART | | | | [address] | | MEDICAL | | | | | | CENTER | | | | | | LABORATORY | | | | | | [place] | | + + + + + + + + | Specimen | + + | Blood specimen | | (specimen) | + + + + + + + | Performing | Address | City/State/Zipcode | Phone Number | | Organization | | | | + + + + + | [facility] | [address] | [place] [address] | | | [facility] | | | | | [facility] [place] | | | | + + + + + POC Glucose (06/14/2018 2:31 AM PDT) + + + + + + | Component | Value | Ref Range | Performed | Pathologist | | | | | At | Signature | + + + + + + | Glucose, | 148 (H)Comment: | 65 - 99 mg/dL | [facility] | | | POC | Performed by [facility] [address] | | SACRED | | | | [address] [place] [address] [place] | | HEART | | | | [address] | | MEDICAL | | | | | | CENTER | | | | | | LABORATORY | | | | | | [place] | | + + + + + + + + | Specimen | + + | Blood specimen | | (specimen) | + + + + + + + | Performing | Address | City/State/Zipcode | Phone Number | | Organization | | | | + + + + + | [facility] | [address] | [place] [address] | | | [facility] | | | | | LABORATORY [place] | | | | + + + + + POC Glucose (06/13/2018 8:39 PM PDT) + + + + + + | Component | Value | Ref Range | Performed | Pathologist | | | | | At | Signature | + + + + + + | Glucose, | 165 (H)Comment: | 65 - 99 mg/dL | [facility] | | | POC | Performed by [facility] [address] | | SACRED | | | | [address], [place] | | HEART | | | | [address] | | MEDICAL | | | | | | CENTER | | | | | | LABORATORY | | | | | | [place] | | + + + + + + + + | Specimen | + + | Blood specimen | | (specimen) | + + + + + + + | Performing | Address | City/State/Zipcode | Phone Number | | Organization | | | | + + + + + | [facility] | [address] | [place] [address] | | | [facility] | | | | | [facility]AT[facility] [place] | | | | + + + + + POC Glucose (06/13/2018 4:09 PM PDT) + + + + + + | Component | Value | Ref Range | Performed | Pathologist | | | | | At | Signature | + + + + + + | Glucose, | 134 (H)Comment: | 65 - 99 mg/dL | [facility] | | | POC | Performed by [facility] [address] | | SACRED | | | | [address] [place] [address] [place] | | HEART | | | | [address] | | MEDICAL | | | | | | CENTER | | | | | | LABORATORY | | | | | | [place] | | + + + + + + + + | Specimen | + + | Blood specimen | | (specimen) | + + + + + + + | Performing | Address | City/State/Zipcode | Phone Number | | Organization | | | | + + + + + | [facility] | [address] | [place] [address] | | | [facility] | | | | | LABORATORY [place] | | | | + + + + + POC Glucose (06/13/2018 11:20 AM PDT) + + + + + + | Component | Value | Ref Range | Performed | Pathologist | | | | | At | Signature | + + + + + + | Glucose, | 131 (H)Comment: | 65 - 99 mg/dL | [facility] | | | POC | Performed by [facility] [address] | | SACRED | | | | [address], [place] | | HEART | | | | [address] | | MEDICAL | | | | | | CENTER | | | | | | LABORATORY | | | | | | [place] | | + + + + + + + + | Specimen | + + | Blood specimen | | (specimen) | + + + + + + + | Performing | Address | City/State/Zipcode | Phone Number | | Organization | | | | + + + + + | [facility] | [address] | [place] [address] | | | [facility] | | | | | LABORAT[facility] [place] | | | | + + + + + POC Glucose (06/13/2018 6:25 AM PDT) + + + + + + | Component | Value | Ref Range | Performed | Pathologist | | | | | At | Signature | + + + + + + | Glucose, | 159 (H)Comment: | 65 - 99 mg/dL | [facility] | | | POC | Performed by [facility] [address] | | SACRED | | | | [address] [place] [place] | | HEART | | | | [address] | | MEDICAL | | | | | | CENTER | | | | | | LABORATORY | | | | | | [place] | | + + + + + + + + | Specimen | + + | Blood specimen | | (specimen) | + + + + + + + | Performing | Address | City/State/Zipcode | Phone Number | | Organization | | | | + + + + + | [facility] | [address] | [place] [address] | | | [facility] | | | | | [facility]AT[facility] [place] | | | | + + + + + XR Chest AP Portable (06/13/2018 6:22 AM PDT) + + | Specimen | + + | | + + + + + | Narrative | Performed At | + + + | CHEST PORTABLE ONE VIEW CLINICAL INFORMATION: Chest tube | [facility] | | placement. COMPARISON: X-ray yesterday. FINDINGS/IMPRESSION: | | | 1. Right IJ central line has been removed. The remaining lines and | | | support devices are unchanged in position. 2. Low lung volumes. | | | Increased bibasilar airspace consolidation or atelectasis, and | | | increased bilateral perihilar hazy atelectasis or edema. 3. | | | Cardiomediastinal contours are stable. 4. No pneumothorax. | | | Signed by: MD Upton Paula Sign Date/Time: 06/13/2018 6:46 AM | | + + + + + | Procedure Note | + + | Tim, Rad Results In - 06/13/2018 6:50 AM PDT | | CHEST PORTABLE ONE VIEW | | | | CLINICAL INFORMATION: | | Chest tube placement. | | | | COMPARISON: | | X-ray yesterday. | | | | FINDINGS/IMPRESSION: | | 1. Right IJ central line has been removed. The remaining lines and | | support devices are unchanged in position. | | 2. Low lung volumes. Increased bibasilar airspace consolidation or | | atelectasis, and increased bilateral perihilar hazy atelectasis or | | edema. | | 3. Cardiomediastinal contours are stable. | | 4. No pneumothorax. | | | | | | | | Signed by: MD Upton Paula | | Sign Date/Time: 06/13/2018 6:46 AM | + + + +---------+ + + | Performing | Address | City/State/Zipcode | Phone Number | | Organization | | | | + +---------+ + + | [facility] | | | | + +---------+ + + CBC no Differential (06/13/2018 4:02 AM PDT) + + + + + + | Component | Value | Ref Range | Performed | Pathologist | | | | | At | Signature | + + + + + + | WBC | 11.8 (H) | 3.8 - 11.0 K/uL | [facility] | | | | | | SACRED | | | | | | HEART | | | | | | MEDICAL | | | | | | CENTER | | | | | | LABORATORY | | | | | | [place] | | + + + + + + | RBC | 3.45 (L) | 3.70 - 5.10 | [facility] | | | | | M/uL | SACRED | | | | | | HEART | | | | | | MEDICAL | | | | | | CENTER | | | | | | LABORATORY | | | | | | [place] | | + + + + + + | Hemoglobin | 10.3 (L) | 11.3 - 15.5 | [facility] | | | | | g/dL | SACRED | | | | | | HEART | | | | | | MEDICAL | | | | | | CENTER | | | | | | LABORATORY | | | | | | [place] | | + + + + + + | Hct | 30.7 (L) | 34.0 - 46.0 % | [facility] | | | | | | SACRED | | | | | | HEART | | | | | | MEDICAL | | | | | | CENTER | | | | | | LABORATORY | | | | | | [place] | | + + + + + + | MCV | 88.9 | 80.0 - 100.0 fL | [facility] | | | | | | SACRED | | | | | | HEART | | | | | | MEDICAL | | | | | | CENTER | | | | | | LABORATORY | | | | | | [place] | | + + + + + + | MCH | 30.0 | 27.0 - 34.0 pg | [facility] | | | | | | SACRED | | | | | | HEART | | | | | | MEDICAL | | | | | | CENTER | | | | | | LABORATORY | | | | | | [place] | | + + + + + + | MCHC | 33.7 | 32.0 - 35.5 | [facility] | | | | | g/dL | SACRED | | | | | | HEART | | | | | | MEDICAL | | | | | | CENTER | | | | | | LABORATORY | | | | | | [place] | | + + + + + + | RDW-CV | 15.3 | 11.0 - 15.5 % | [facility] | | | | | | SACRED | | | | | | HEART | | | | | | MEDICAL | | | | | | CENTER | | | | | | LABORATORY | | | | | | [place] | | + + + + + + | Platelet | 192 | 150 - 400 K/uL | [facility] | | | Count | | | SACRED | | | | | | HEART | | | | | | MEDICAL | | | | | | CENTER | | | | | | LABORATORY | | | | | | [place] | | + + + + + + | MPV | 6.9 (L)Comment: | 7.5 - 11.2 fL | [facility] | | | | Performed by [facility] [address] | | SACRED | | | | [address] [place] | | HEART | | | | [address] | | MEDICAL | | | | | | CENTER | | | | | | LABORATORY | | | | | | [place] | | + + + + + + + + | Specimen | + + | Blood specimen | | (specimen) | + + + + + + + | Performing | Address | City/State/Zipcode | Phone Number | | Organization | | | | + + + + + | [facility] | [address] | [place] [address] | | | [facility] | | | | | LAB[facility]AT[facility] [place] | | | | + + + + + Basic Metabolic Panel (06/13/2018 4:02 AM PDT) + + + + + + | Component | Value | Ref Range | Performed | Pathologist | | | | | At | Signature | + + + + + + | Na | 137 | 135 - 145 | [facility] | | | | | mmol/L | SACRED | | | | | | HEART | | | | | | MEDICAL | | | | | | CENTER | | | | | | LABORATORY | | | | | | [place] | | + + + + + + | K | 4.6 | 3.5 - 5.0 | [facility] | | | | | mmol/L | SACRED | | | | | | HEART | | | | | | MEDICAL | | | | | | CENTER | | | | | | LABORATORY | | | | | | [place] | | + + + + + + | Cl | 103 | 99 - 109 mmol/L | [facility] | | | | | | SACRED | | | | | | HEART | | | | | | MEDICAL | | | | | | CENTER | | | | | | LABORATORY | | | | | | [place] | | + + + + + + | CO2 | 27 | 21 - 28 mmol/L | [facility] | | | | | | SACRED | | | | | | HEART | | | | | | MEDICAL | | | | | | CENTER | | | | | | LABORATORY | | | | | | [place] | | + + + + + + | Anion Gap | 7 | 5 - 16 mmol/L | [facility] | | | | | | SACR[facility] | | | | | | HEART | | | | | | MEDICAL | | | | | | CENTER | | | | | | LABORATORY | | | | | | [place] | | + + + + + + | Calcium | 8.0 (L) | 8.5 - 10.2 | [facility] | | | | | mg/dL | SACRED | | | | | | HEART | | | | | | MEDICAL | | | | | | CENTER | | | | | | LABORATORY | | | | | | [place] | | + + + + + + | BUN | 27 (H) | 8 - 25 mg/dL | [facility] | | | | | | SACRED | | | | | | HEART | | | | | | MEDICAL | | | | | | CENTER | | | | | | LABORATORY | | | | | | [place] | | + + + + + + | Creatinine | 1.12 (H) | 0.50 - 1.00 | [facility] | | | | | mg/dL | SACRED | | | | | | HEART | | | | | | MEDICAL | | | | | | CENTER | | | | | | LABORATORY | | | | | | [place] | | + + + + + + | Glucose | 146 (H) | 65 - 99 mg/dL | [facility] | | | | | | SACRED | | | | | | HEART | | | | | | MEDICAL | | | | | | CENTER | | | | | | LABORATORY | | | | | | [place] | | + + + + + + | Estimated | 52 (L)Comment: eGFR<60 | >=90 | [facility] | | | GFR | consistent with impaired | mL/min/1.73m2 | [facility] | | | | kidney | | HEART | | | | function.Performed by | | MEDICAL | | | | [facility] [address], | | [place] | | | | [place] [address] | | LABORATORY | | | | | | [place] | | + + + + + + + + | Specimen | + + | Blood specimen | | (specimen) | + + + + + + + | Performing | Address | City/State/Zipcode | Phone Number | | Organization | | | | + + + + + | [facility] | [address] | [place] [address] | | | [facility] | | | | | LABORATORY [facility] | | | | + + + + + POC Glucose (06/13/2018 2:42 AM PDT) + + + + + + | Component | Value | Ref Range | Performed | Pathologist | | | | | At | Signature | + + + + + + | Glucose, | 152 (H)Comment: | 65 - 99 mg/dL | [facility] | | | POC | Performed by [facility] [address] | | SACRED | | | | [place] | | HEART | | | | [address] | | MEDICAL | | | | | | CENTER | | | | | | LABORATORY | | | | | | [place] | | + + + + + + + + | Specimen | + + | Blood specimen | | (specimen) | + + + + + + + | Performing | Address | City/State/Zipcode | Phone Number | | Organization | | | | + + + + + | [facility] | [address] | [place] [address] | | | [facility] | | | | | LABORATORY [place] | | | | + + + + + POC Glucose (06/12/2018 10:00 PM PDT) + + + + + + | Component | Value | Ref Range | Performed | Pathologist | | | | | At | Signature | + + + + + + | Glucose, | 172 (H)Comment: | 65 - 99 mg/dL | [facility] | | | POC | Performed by [facility] [address] | | SACRED | | | | [address] [place] | | HEART | | | | [address] | | MEDICAL | | | | | | CENTER | | | | | | LABORATORY | | | | | | [place] | | + + + + + + + + | Specimen | + + | Blood specimen | | (specimen) | + + + + + + + | Performing | Address | City/State/Zipcode | Phone Number | | Organization | | | | + + + + + | [facility] | [address] | [place] [address] | | | [facility] | | | | | LABORATORY [place] | | | | + + + + + POC Glucose (06/12/2018 4:41 PM PDT) + + + + + + | Component | Value | Ref Range | Performed | Pathologist | | | | | At | Signature | + + + + + + | Glucose, | 132 (H)Comment: | 65 - 99 mg/dL | [facility] | | | POC | Performed by [facility] [address] | | SACRED | | | | [address] [place] | | HEART | | | | [address] | | MEDICAL | | | | | | CENTER | | | | | | LABORATORY | | | | | | [place] | | + + + + + + + + | Specimen | + + | Blood specimen | | (specimen) | + + + + + + + | Performing | Address | City/State/Zipcode | Phone Number | | Organization | | | | + + + + + | [facility] | [address] | [place] [address] | | | [facility] | | | | | LABORATORY [place] | | | | + + + + + POC Glucose (06/12/2018 4:02 PM PDT) + + + + + + | Component | Value | Ref Range | Performed | Pathologist | | | | | At | Signature | + + + + + + | Glucose, | 126 (H)Comment: | 65 - 99 mg/dL | [facility] | | | POC | Performed by [facility] [address] | | SACRED | | | | [address] [place] | | HEART | | | | [address] | | MEDICAL | | | | | | CENTER | | | | | | LABORATORY | | | | | | [place] | | + + + + + + + + | Specimen | + + | Blood specimen | | (specimen) | + + + + + + + | Performing | Address | City/State/Zipcode | Phone Number | | Organization | | | | + + + + + | [facility] | [address] | [place] [address] | | | [facility] | | | | | LABORATORY [facility] | | | | + + + + + POC Glucose (06/12/2018 12:27 PM PDT) + + + + + + | Component | Value | Ref Range | Performed | Pathologist | | | | | At | Signature | + + + + + + | Glucose, | 177 (H)Comment: | 65 - 99 mg/dL | [facility] | | | POC | Performed by [facility] [address] | [address] | | | | [address], [place] | | HEART | | | | [id number] | | MEDICAL | | | | | | CENTER | | | | | | LABORATORY | | | | | | CERNER | | + + + + + + + + | Specimen | + + | Blood specimen | | (specimen) | + + + + + + + | Performing | Address | City/State/Zipcode | Phone Number | | Organization | | | | + + + + + | [facility] | [address] | [place] [address] | | | [facility] | | | | | LABORATORY [facility] | | | | + + + + + POC Glucose (06/12/2018 6:59 AM PDT) + + + + --+ + | Component | Value | Ref Range | Performed | Pathologist | | | | | At | Signature | + + + + --+ + | Glucose, | 98Comment: Performed by | 65 - 99 mg/dL | [facility] | | | POC | [facility] [address], | | SACRED | | | | [place] [address] | | HEART | | | |Performed by [facility] [address], [place] [address] | | MEDICAL | | | | | | CENTER | | | | | | LABORATORY | | | | | | CERNER | | + + + + --+ + + + | Specimen | + + | Blood specimen | | (specimen) | + + + + + + + | Performing | Address | City/State/Zipcode | Phone Number | | Organization | | | | + + + + + | [facility] | [address] | [place] [address] | | | [facility] | | | | | LABORATORY CERNER | | | | + + + + + POC Glucose (06/12/2018 6:00 AM PDT) + + + + + + | Component | Value | Ref Range | Performed | Pathologist | | | | | At | Signature | + + + + + + | Glucose, | 100 (H)Comment: | 65 - 99 mg/dL | [facility] | | | POC | Performed by [facility] [address] | | [address] | | | | [address], [place] | | HEART | | | | [id number] | | MEDICAL | | | | | | CENTER | | | | | | LABORATORY | | | | | | [place] | | + + + + + + + + | Specimen | + + | Blood specimen | | (specimen) | + + + + + + + | Performing | Address | City/State/Zipcode | Phone Number | | Organization | | | | + + + + + | [facility] | [address] | [place] [address] | | | [facility] | | | | | LABORATORY [facility] | | | | + + + + + POC Glucose (06/12/2018 5:08 AM PDT) + + + + --+ + | Component | Value | Ref Range | Performed | Pathologist | | | | | At | Signature | + + + + --+ + | Glucose, | 87Comment: Performed by | 65 - 99 mg/dL | [facility] | | | POC | [facility] [address], | | SACRED | | | | [place] [address] | | HEART | | | |Performed by [facility] [address], [place] [address] | | MEDICAL | | | | | | CENTER | | | | | | LABORATORY | | | | | | CERNER | | + + + + --+ + + + | Specimen | + + | Blood specimen | | (specimen) | + + + + + + + | Performing | Address | City/State/Zipcode | Phone Number | | Organization | | | | + + + + + | [facility] | [address] | [place] [address] | | | [facility] | | | | | LABORATORY CERNER | | | | + + + + + XR Chest AP Portable (06/12/2018 3:33 AM PDT) + + | Specimen | + + | | + + + + + | Narrative | Performed At | + + + | CHEST PORTABLE ONE VIEW CLINICAL INFORMATION: Respiratory | [facility] | | difficulty. COMPARISON: X-ray yesterday. FINDINGS/IMPRESSION: | | | 1. ET tube and NG tube have been removed. The remaining lines and | | | support devices are unchanged in position. 2. Mildly increased left | | | basilar opacity suggesting atelectasis. Decreased left perihilar | | | atelectasis. 3. Cardiomediastinal contours are stable. 4. No | | | pneumothorax. Signed by: MD Upton Paula Sign | | | Date/Time: 06/12/2018 4:16 AM | | + + + + + | Procedure Note | + + | Tim, Rad Results In - 06/12/2018 4:19 AM PDT | | CHEST PORTABLE ONE VIEW | | | | CLINICAL INFORMATION: | | Respiratory difficulty. | | | | COMPARISON: | | X-ray yesterday. | | | | FINDINGS/IMPRESSION: | | 1. ET tube and NG tube have been removed. The remaining lines and | | support devices are unchanged in position. | | 2. Mildly increased left basilar opacity suggesting atelectasis. | | Decreased left perihilar atelectasis. | | 3. Cardiomediastinal contours are stable. | | 4. No pneumothorax. | | | | | | | | Signed by: MD Upton Paula | | Sign Date/Time: 06/12/2018 4:16 AM | + + + +---------+ + + | Performing | Address | City/State/Zipcode | Phone Number | | Organization | | | | + +---------+ + + | [facility] | | | | + +---------+ + + POC Glucose (06/12/2018 3:15 AM PDT) + + + + --+ + | Component | Value | Ref Range | Performed | Pathologist | | | | | At | Signature | + + + + --+ + | Glucose, | 98Comment: Performed by | 65 - 99 mg/dL | [facility] | | | POC | [facility] [address], | | SACRED | | | | [place] [address] | | HEART | | | |Performed by [facility] [address], [place] [address] | | MEDICAL | | | | | | CENTER | | | | | | LABORATORY | | | | | | [facility] | | + + + + --+ + + + | Specimen | + + | Blood specimen | | (specimen) | + + + + + + + | Performing | Address | City/State/Zipcode | Phone Number | | Organization | | | | + + + + + | [facility] | [address] | [place] [address] | | | [facility] | | | | | [facility] | | | | + + + + + ECG 12 lead (06/12/2018 3:12 AM PDT) + + | Specimen | + + | | + + + + + | Narrative | Performed At | + + + | HEART RATE:60 | [facility] | | bpmRR Interval:1000 msAtrial Rate:61 msP-R Interval:176 msP | [facility] | | Duration:184 msP Horizontal Doran:5 degP Front Doran:55 degQ Onset:508 | | | msQRSD Interval:104 msQT Interval:452 msQTcB:452 msQTcF:452 msQRS | | | Horizontal Doran:129 degQRS Doran:-53 degI-40 Horizontal Doran:77 degI-40 | | | Front Doran:-44 degT-40 Horizontal Doran:204 degT-40 Front Doran:-83 | | | degT Horizontal Doran:95 degT Wave Doran:39 degS-T Horizontal Doran:79 | | | degS-T Front Doran:49 degSeverity:- ABNORMAL ECG -INTERP:SINUS | | | RHYTHMINTERP:CONSIDER RIGHT VENTRICULAR HYPERTROPHYINTERP:PROBABLE | | | INFERIOR INFARCT, AGE INDETERMINATEINTERP:BORDERLINE ST ELEVATION, | | | ANTERIOR LEADSElectronically signed by: ELIZABETH CAMPBELL 06-12-2018 | | | 07:37:14 | | |QRS Horizontal Doran:129 deg | | |QRS Doran:-53 deg | | |I-40 Horizontal Doran:77 deg | | |I-40 Front Doran:-44 deg | | |T-40 Horizontal Doran:204 deg | | |T-40 Front Doran:-83 deg | | |T Horizontal Doran:95 deg | | |T Wave Doran:39 deg | | |S-T Horizontal Doran:79 deg | | |S-T Front Doran:49 deg | | |Severity:- ABNORMAL ECG - | | |INTERP:SINUS RHYTHM | | |INTERP:CONSIDER RIGHT VENTRICULAR HYPERTROPHY | | |INTERP:PROBABLE INFERIOR INFARCT, AGE INDETERMINATE | | |INTERP:BORDERLINE ST ELEVATION, ANTERIOR LEADS | | |Electronically signed by: ELIZABETH CAMPBELL 06-12-2018 07:37:14 | | + + + + + + + + | Performing | Address | City/State/Zipcode | Phone Number | | Organization | | | | + + + + + | [facility] | [address] | [place] [address] | [phone] | + + + + + CBC no Differential (06/12/2018 3:12 AM PDT) + + + + + + | Component | Value | Ref Range | Performed | Pathologist | | | | | At | Signature | + + + + + + | WBC | 12.1 (H) | 3.8 - 11.0 K/uL | [facility] | | | | | | [facility]CR[facility] | | | | | | HEART | | | | | | MEDICAL | | | | | | CENTER | | | | | | LABORATORY | | | | | | [facility] | | + + + + + + | RBC | 3.66 (L) | 3.70 - 5.10 | [facility] | | | | | M/uL | SACRED | | | | | | HEART | | | | | | MEDICAL | | | | | | CENTER | | | | | | LABORATORY | | | | | | [facility] | | + + + + + + | Hemoglobin | 10.7 (L) | 11.3 - 15.5 | [facility] | | | | | g/dL | SACRED | | | | | | HEART | | | | | | MEDICAL | | | | | | CENTER | | | | | | LABORATORY | | | | | | [facility] | | + + + + + + | Hct | 31.9 (L) | 34.0 - 46.0 % | [facility] | | | | | | SACRED | | | | | | HEART | | | | | | MEDICAL | | | | | | CENTER | | | | | | LABORATORY | | | | | | [facility] | | + + + + + + | MCV | 87.2 | 80.0 - 100.0 fL | [facility] | | | | | | SACRED | | | | | | HEART | | | | | | MEDICAL | | | | | | CENTER | | | | | | LABORATORY | | | | | | [facility] | | + + + + + + | MCH | 29.4 | 27.0 - 34.0 pg | [facility] | | | | | | SACRED | | | | | | HEART | | | | | | MEDICAL | | | | | | CENTER | | | | | | LABORATORY | | | | | | [facility] | | + + + + + + | MCHC | 33.7 | 32.0 - 35.5 | [facility] | | | | | g/dL | SACRED | | | | | | HEART | | | | | | MEDICAL | | | | | | CENTER | | | | | | LABORATORY | | | | | | [facility] | | + + + + + + | RDW-CV | 15.5 | 11.0 - 15.5 % | [facility] | | | | | | SACRED | | | | | | HEART | | | | | | MEDICAL | | | | | | CENTER | | | | | | LABORATORY | | | | | | [facility] | | + + + + + + | Platelet | 244 | 150 - 400 K/uL | [facility] | | | Count | | | SACRED | | | | | | HEART | | | | | | MEDICAL | | | | | | CENTER | | | | | | LABORATORY | | | | | | [facility] | | + + + + + + | MPV | 6.5 (L)Comment: | 7.5 - 11.2 fL | [facility] | | | | Performed by [facility] [address] | | SACRED | | | | [address] [place] | | HEART | | | | [address] | | MEDICAL | | | | | | CENTER | | | | | | LABORATORY | | | | | | CERNER | | + + + + + + + + | Specimen | + + | Blood specimen | | (specimen) | + + + + + + + | Performing | Address | City/State/Zipcode | Phone Number | | Organization | | | | + + + + + | [facility] | [address] | [place] [address] | | | [facility] | | | | | LABORATORY [facility] | | | | + + + + + Basic Metabolic Panel (06/12/2018 3:12 AM PDT) + + + + + + | Component | Value | Ref Range | Performed | Pathologist | | | | | At | Signature | + + + + + + | Na | 146 (H) | 135 - 145 | [facility] | | | | | mmol/L | SACRED | | | | | | HEART | | | | | | MEDICAL | | | | | | CENTER | | | | | | LABORATORY | | | | | | [facility] | | + + + + + + | K | 4.8 | 3.5 - 5.0 | [facility] | | | | | mmol/L | SACRED | | | | | | HEART | | | | | | MEDICAL | | | | | | CENTER | | | | | | LABORATORY | | | | | | [facility] | | + + + + + + | Cl | 111 (H) | 99 - 109 mmol/L | [facility] | | | | | | SACRED | | | | | | HEART | | | | | | MEDICAL | | | | | | CENTER | | | | | | LABORATORY | | | | | | [facility] | | + + + + + + | CO2 | 28 | 21 - 28 mmol/L | [facility] | | | | | | SACRED | | | | | | HEART | | | | | | MEDICAL | | | | | | CENTER | | | | | | LABORATORY | | | | | | [facility] | | + + + + + + | Anion Gap | 7 | 5 - 16 mmol/L | [facility] | | | | | | SACR[facility] | | | | | | HEART | | | | | | MEDICAL | | | | | | CENTER | | | | | | LABORATORY | | | | | | [facility] | | + + + + + + | Calcium | 8.5 | 8.5 - 10.2 | [facility] | | | | | mg/dL | SACRED | | | | | | HEART | | | | | | MEDICAL | | | | | | CENTER | | | | | | LABORATORY | | | | | | [facility] | | + + + + + + | BUN | 22 | 8 - 25 mg/dL | [facility] | | | | | | SACR[facility] | | | | | | HEART | | | | | | MEDICAL | | | | | | CENTER | | | | | | LABORATORY | | | | | | [facility] | | + + + + + + | Creatinine | 1.14 (H) | 0.50 - 1.00 | [facility] | | | | | mg/dL | SACRED | | | | | | HEART | | | | | | MEDICAL | | | | | | CENTER | | | | | | LABORATORY | | | | | | [facility] | | + + + + + + | Glucose | 96 | 65 - 99 mg/dL | [facility] | | | | | | SACR[facility] | | | | | | HEART | | | | | | MEDICAL | | | | | | CENTER | | | | | | LABORATORY | | | | | | [facility] | | + + + + + + | Estimated | 51 (L)Comment: eGFR<60 | >=90 | [facility] | | | GFR | consistent with impaired | mL/min/1.73m2 | [facility] | | | | kidney | | HEART | | | | function.Performed by | | MEDICAL | | | | [facility] [address], | | [place] | | | | [place] [address] | | LABORATORY | | | | | | CERNER | | + + + + + + + + | Specimen | + + | Blood specimen | | (specimen) | + + + + + + + | Performing | Address | City/State/Zipcode | Phone Number | | Organization | | | | + + + + + | [facility] | [address] | [place] [address] | | | HEART [facility] | | | | | LABORATORY [facility] | | | | + + + + + POC Glucose (06/12/2018 2:39 AM PDT) + + + + + + | Component | Value | Ref Range | Performed | Pathologist | | | | | At | Signature | + + + + + + | Glucose, | 107 (H)Comment: | 65 - 99 mg/dL | [facility] | | | POC | Performed by [facility] [address] | | SACRED | | | | [address], [place] | | HEART | | | | [address] | | MEDICAL | | | | | | CENTER | | | | | | LABORATORY | | | | | | CERNER | | + + + + + + + + | Specimen | + + | Blood specimen | | (specimen) | + + + + + + + | Performing | Address | City/State/Zipcode | Phone Number | | Organization | | | | + + + + + | [facility] | [address] | [place] [address] | | | [facility] | | | | | LABORATORY [facility] | | | | + + + + + POC Glucose (06/12/2018 1:35 AM PDT) + + + + --+ + | Component | Value | Ref Range | Performed | Pathologist | | | | | At | Signature | + + + + --+ + | Glucose, | 99Comment: Performed by | 65 - 99 mg/dL | [facility] | | | POC | [facility] [address], | | SACRED | | | | [place] [address] | | HEART | | | |Performed by [facility] [address], [place] [address] | | MEDICAL | | | | | | CENTER | | | | | | LABORATORY | | | | | | [facility] | | + + + + --+ + + + | Specimen | + + | Blood specimen | | (specimen) | + + + + + + + | Performing | Address | City/State/Zipcode | Phone Number | | Organization | | | | + + + + + | [facility] | [address] | [place] [address] | | | [facility] | | | | | LABORATORY [facility] | | | | + + + + + POC Glucose (06/11/2018 11:58 PM PDT) + + + + + + | Component | Value | Ref Range | Performed | Pathologist | | | | | At | Signature | + + + + + + | Glucose, | 105 (H)Comment: | 65 - 99 mg/dL | [facility] | | | POC | Performed by [facility] [address] | | SACRED | | | | [address], [place] | | HEART | | | | [address] | | MEDICAL | | | | | | CENTER | | | | | | LABORATORY | | | | | | CERNER | | + + + + + + + + | Specimen | + + | Blood specimen | | (specimen) | + + + + + + + | Performing | Address | City/State/Zipcode | Phone Number | | Organization | | | | + + + + + | [facility] | [address] | [place] [address] | | | [facility] | | | | | LABORATORY [place] | | | | + + + + + POC Glucose (06/11/2018 11:19 PM PDT) + + + + + + | Component | Value | Ref Range | Performed | Pathologist | | | | | At | Signature | + + + + + + | Glucose, | 113 (H)Comment: | 65 - 99 mg/dL | [facility] | | | POC | Performed by [facility] [address] | | SACRED | | | | [address] [place] | | HEART | | | | [address] | | MEDICAL | | | | | | CENTER | | | | | | LABORATORY | | | | | | CERNER | | + + + + + + + + | Specimen | + + | Blood specimen | | (specimen) | + + + + + + + | Performing | Address | City/State/Zipcode | Phone Number | | Organization | | | | + + + + + | [facility] | [address] | [place] [address] | | | [facility] | | | | | LABORATORY [facility] | | | | + + + + + Potassium Whole Blood (06/11/2018 11:01 PM PDT) + + + + + + | Component | Value | Ref Range | Performed | Pathologist | | | | | At | Signature | + + + + + + | K | 5.4 (H)Comment: | 3.5 - 5.0 | [facility] | | | | Performed by [facility] [address] | mmol/L | SACRED | | | | [address], [place] | | HEART | | | | [address] | | MEDICAL | | | | | | CENTER | | | | | | LABORATORY | | | | | | CERN[facility] | | + + + + + + + + | Specimen | + + | Blood specimen | | (specimen) | + + + + + + + | Performing | Address | City/State/Zipcode | Phone Number | | Organization | | | | + + + + + | [facility] | [address] | [place] [address] | | | [facility] | | | | | [place] | | | | + + + + + Glucose, Respiratory (06/11/2018 11:01 PM PDT) + + + + + + | Component | Value | Ref Range | Performed | Pathologist | | | | | At | Signature | + + + + + + | Glucose | 112 (H)Comment: | 65 - 99 mg/dL | [facility] | | | | Performed by [facility] [address] | | SACRED | | | | [address] [place] | | HEART | | | | [address] | | MEDICAL | | | | | | CENTER | | | | | | LABORATORY | | | | | | CERNER | | + + + + + + + + | Specimen | + + | Blood specimen | | (specimen) | + + + + + + + | Performing | Address | City/State/Zipcode | Phone Number | | Organization | | | | + + + + + | [facility] | [address] | [place] [address] | | | [facility] | | | | | LABORATORY [facility] | | | | + + + + + Blood Gas, Arterial (06/11/2018 11:01 PM PDT) + + + +--------- ----+ + | Component | Value | Ref Range | Performe d | Pathologist | | | | | At | Signature | + + + +--------- ----+ + | pH, | 7.35 (L) | 7.37 - 7.47 | [facility] | | | Arterial | | | SACRED | | | | | | HEART | | | | | | MEDICAL | | | | | | CENTER | | | | | | LABORATO RY | | | | | | [facility] | | + + + +--------- ----+ + | pCO2, | 49 (H) | 32 - 43 mmHg | [facility] | | | Arterial | | | SACRED | | | | | | HEART | | | | | | MEDICAL | | | | | | CENTER | | | | | | LABORATO RY | | | | | | [facility] | | + + + +--------- ----+ + | pO2, | 101 (H) | 65 - 80 mmHg | [facility] | | | Arterial | | | SACRED | | | | | | HEART | | | | | | MEDICAL | | | | | | CENTER | | | | | | LABORATO RY | | | | | | [facility] | | + + + +--------- ----+ + | Base | 1.7 | -2.5 - 2.5 | [facility] | | | Excess, | | mmol/L | SACRED | | | Arterial | | | HEART | | | | | | MEDICAL | | | | | | CENTER | | | | | | LABORATO RY | | | | | | [facility] | | + + + +--------- ----+ + | HCO3, | 27.3 | 23.0 - 28.0 | [facility] | | | Arterial | | mmol/L | SACRED | | | | | | HEART | | | | | | MEDICAL | | | | | | CENTER | | | | | | LABORATO RY | | | | | | [facility] | | + + + +--------- ----+ + | FiO2 | 40 | | [facility] | | | | | | SACRED | | | | | | HEART | | | | | | MEDICAL | | | | | | CENTER | | | | | | LABORATO RY | | | | | | [facility] | | + + + +--------- ----+ + | ROUTE | PSV 8/5 | | [facility] | | | | | | SACRED | | | | | | HEART | | | | | | MEDICAL | | | | | | CENTER | | | | | | LABORATO RY | | | | | | [facility] | | + + + +--------- ----+ + | Methemoglob | 0.8 | 0.4 - 1.5 % | [facility] | | | in, Venous | | | SACRED | | | | | | HEART | | | | | | MEDICAL | | | | | | CENTER | | | | | | LABORATO RY | | | | | | [facility] | | + + + +--------- ----+ + | Comment | SPO2 [address] | | [facility] | | | | | | SACRED | | | | | | HEART | | | | | | MEDICAL | | | | | | CENTER | | | | | | LABORATO RY | | | | | | [facility] | | + + + +--------- ----+ + | Oxygen | 15.8 | 15.0 - 23.0 % | [facility] | | | Content, | | | SACRED | | | Arterial | | | HEART | | | | | | MEDICAL | | | | | | CENTER | | | | | | LABORATO RY | | | | | | [facility] | | + + + +--------- ----+ + | Carboxyhemo | 1.1 | 1.0 - 3.0 % | [facility] | | | globin | | | SACRED | | | | | | HEART | | | | | | MEDICAL | | | | | | CENTER | | | | | | LABORATO RY | | | | | | [facility] | | + + + +--------- ----+ + | O2SAT COOX | 95.9Comment: Performed | 92.0 - 99.0 % | [facility] | | | ARTERIAL | by [facility] [address], | | SACRED | | | | [place] [address] | | HEART | | | |Performed by [facility] [address], [place] [address] | | MEDICAL | | | | | | CENTER | | | | | | LABORATO RY | | | | | | CERNER | | + + + +--------- ----+ + + + | Specimen | + + | Blood specimen | | (specimen) - Artery | | sample (specimen) | + + + + + + + | Performing | Address | City/State/Zipcode | Phone Number | | Organization | | | | + + + + + | [facility] | [address] | [place] [address] | | | HEART [facility] | | | | | LABORATORY [facility] | | | | + + + + + POC Glucose (06/11/2018 9:56 PM PDT) + + + + + + | Component | Value | Ref Range | Performed | Pathologist | | | | | At | Signature | + + + + + + | Glucose, | 116 (H)Comment: | 65 - 99 mg/dL | [facility] | | | POC | Performed by [facility] [address] | | SACRED | | | | [place] | | HEART | | | | [address] | | MEDICAL | | | | | | CENTER | | | | | | LABORATORY | | | | | | [facility]ERNER | | + + + + + + + + | Specimen | + + | Blood specimen | | (specimen) | + + + + + + + | Performing | Address | City/State/Zipcode | Phone Number | | Organization | | | | + + + + + | [facility] | [address] | [place] [address] | | | [facility] | | | | | LABORATORY [facility] | | | | + + + + + POC Glucose (06/11/2018 8:29 PM PDT) + + + + + + | Component | Value | Ref Range | Performed | Pathologist | | | | | At | Signature | + + + + + + | Glucose, | 147 (H)Comment: | 65 - 99 mg/dL | [facility] | | | POC | Performed by [facility] [address] | | SACRED | | | | [address], [place] | | HEART | | | | | | MEDICAL | | | | | | CENTER | | | | | | LABORATORY | | | | | | [facility] | | + + + + + + + + | Specimen | + + | Blood specimen | | (specimen) | + + + + + + + | Performing | Address | City/State/Zipcode | Phone Number | | Organization | | | | + + + + + | [facility] | [address] | [place] [address] | | | HEART [facility] | | | | | LABORATORY [facility] | | | | + + + + + Potassium (06/11/2018 7:58 PM PDT) + + + + + + | Component | Value | Ref Range | Performed | Pathologist | | | | | At | Signature | + + + + + + | K | 3.9Comment: Performed | 3.5 - 5.0 | [facility] | | | | by [facility] [address] | mmol/L | SACRED | | | | [place] [address] | | HEART | | | |Performed by [facility] [address], [place] [address] | | MEDICAL | | | | | | CENTER | | | | | | LABORATORY | | | | | | [facility] | | + + + + + + + + | Specimen | + + | Blood specimen | | (specimen) | + + + + + + + | Performing | Address | City/State/Zipcode | Phone Number | | Organization | | | | + + + + + | [facility] | [address] | [place] [address] | | | [facility] | | | | | LABORATORY [place] | | | | + + + + + POC Glucose (06/11/2018 6:52 PM PDT) + + + + + + | Component | Value | Ref Range | Performed | Pathologist | | | | | At | Signature | + + + + + + | Glucose, | 156 (H)Comment: | 65 - 99 mg/dL | [facility] | | | POC | Performed by [facility] [address] | | SACRED | | | | [address] [place] | | HEART | | | | [address] | | MEDICAL | | | | | | CENTER | | | | | | LABORATORY | | | | | | [facility] | | + + + + + + + + | Specimen | + + | Blood specimen | | (specimen) | + + + + + + + | Performing | Address | City/State/Zipcode | Phone Number | | Organization | | | | + + + + + | [facility] | [address] | [place] [address] | | | [facility] | | | | | [facility] | | | | + + + + + ECG 12 lead (06/11/2018 4:59 PM PDT) + + | Specimen | + + | | + + + + + | Narrative | Performed At | + + + | HEART RATE:72 | [facility] | | bpmRR Interval:833 msAtrial Rate:72 msP-R Interval:176 msP | [facility] | | Duration:180 msP Horizontal Doran:-10 degP Front Doran:68 degQ Onset:512 | | | msQRSD Interval:110 msQT Interval:444 msQTcB:486 msQTcF:472 msQRS | | | Horizontal Doran:112 degQRS Doran:-63 degI-40 Horizontal Doran:100 | | | degI-40 Front Doran:-58 degT-40 Horizontal Doran: degT-40 Front Doran:160 | | | degT Horizontal Doran:104 degT Wave Doran:-11 degS-T Horizontal | | | Doran:104 degS-T Front Doran:32 degSeverity:- ABNORMAL ECG -INTERP:SINUS | | | RHYTHMINTERP:PROBABLE LEFT ATRIAL ABNORMALITYINTERP:NONSPECIFIC IVCD | | | WITH LADINTERP:INFERIOR INFARCT, AGE INDETERMINATEINTERP:LATERAL | | | INFARCT, OLDElectronically signed by: ELIZABETH CAMPBELL 06-12-2018 | | | 11:18:02 | | |QRS Horizontal Doran:112 deg | | |QRS Doran:-63 deg | | |I-40 Horizontal Doran:100 deg | | |I-40 Front Doran:-58 deg | | |T-40 Horizontal Doran: deg | | |T-40 Front Doran:160 deg | | |T Horizontal Doran:104 deg | | |T Wave Doran:-11 deg | | |S-T Horizontal Doran:104 deg | | |S-T Front Doran:32 deg | | |Severity:- ABNORMAL ECG - | | |INTERP:SINUS RHYTHM | | |INTERP:PROBABLE LEFT ATRIAL ABNORMALITY | | |INTERP:NONSPECIFIC IVCD WITH LAD | | |INTERP:INFERIOR INFARCT, AGE INDETERMINATE | | |INTERP:LATERAL INFARCT, OLD | | |Electronically signed by: ELIZABETH CAMPBELL 06-12-2018 11:18:02 | | + + + + + + + + | Performing | Address | City/State/Unm Cancer Centercode | Phone Number | | Organization | | | | + + + + + | [facility] | [address] | [place] [address] | [phone] | + + + + + PTT (06/11/2018 4:37 PM PDT) + + + + + + | Component | Value | Ref Range | Performed | Pathologist | | | | | At | Signature | + + + + + + | aPTT | 32Comment: Deep venous | 26 - 36 sec | [facility] | | | | thrombosis or pulmonary | | [facility] | | | | embolism therapeutic | | HEART | | | | heparin levels of 0.3 to | | MEDICAL | | | | 0.7 Units/mL anti | | CENTER | | | | FactorXa levels usually | | LAB[facility]ATORY | | | | correspond to an aPTT of | | [facility] | | | | 65 to 99 seconds. Acute | | | | | | cardiac syndrome | | | | | | therapeutic range based | | | | | | on heparin levels of 0.2 | | | | | | to 0.5 usually | | | | | | correspond to an aPTT of | | | | | | 57 to 76 seconds. | | | | | | Pediatric guidelines | | | | | | suggested heparin levels | | | | | | of 0.35 to 0.7 usually | | | | | | correspond to an aPTT of | | | | | | 69 to 99 | | | | | | seconds.Performed by [facility] | | | | | | [address], | | | | | | [place] [address] | | | | + + + + + + + + | Specimen | + + | Blood specimen | | (specimen) | + + + + + + + | Performing | Address | City/State/Zipcode | Phone Number | | Organization | | | | + + + + + | [facility] | [address] | [place] [address] | | | [facility] | | | | | [facility] | | | | + + + + + Protime INR (06/11/2018 4:37 PM PDT) + + + + + + | Component | Value | Ref Range | Performed | Pathologist | | | | | At | Signature | + + + + + + | Prothrombin | 14.6 (H) | 12.0 - 14.2 sec | [facility] | | | Time | | | [facility] | | | | | | [facility] | | | | | | MEDICAL | | | | | | CENTER | | | | | | LABORATORY | | | | | | [facility] | | + + + + + + | INR | 1.2 (H)Comment: Usual | 0.9 - 1.1 | [facility] | | | | oral anticoagulant | | [facility] | | | | range: 2.0 to 3.0 High | | HEART | | | | level oral | | MEDICAL | | | | anticoagulant range: 2.5 | | CENTER | | | | to 3.5Performed by [facility] | | LABORATORY | | | | [address], [place], | | [place] | | | | [place] [id number] | | | | + + + + + + + + | Specimen | + + | Blood specimen | | (specimen) | + + + + + + + | Performing | Address | City/State/Zipcode | Phone Number | | Organization | | | | + + + + + | [facility] | [address] | [place] [address] | | | [facility] | | | | | LABORAT[facility] | | | | + + + + + Comprehensive Metabolic Panel (06/11/2018 4:37 PM PDT) + + + + + + | Component | Value | Ref Range | Performed | Pathologist | | | | | At | Signature | + + + + + + | Na | 146 (H) | 135 - 145 | [facility] | | | | | mmol/L | [facility] | | | | | | HEART | | | | | | MEDICAL | | | | | | CENTER | | | | | | LABORATORY | | | | | | [facility] | | + + + + + + | K | 4.3 | 3.5 - 5.0 | [facility] | | | | | mmol/L | [facility] | | | | | | HEART | | | | | | MEDICAL | | | | | | CENTER | | | | | | LABORATORY | | | | | | [facility] | | + + + + + + | Cl | 109 | 99 - 109 mmol/L | [facility] | | | | | | [facility] | | | | | | [facility]ART | | | | | | MEDICAL | | | | | | CENTER | | | | | | LABORATORY | | | | | | [facility] | | + + + + + + | CO2 | 28 | 21 - 28 mmol/L | [facility] | | | | | | [facility] | | | | | | HEART | | | | | | MEDICAL | | | | | | CENTER | | | | | | LABORATORY | | | | | | [facility] | | + + + + + + | Calcium | 9.5 | 8.5 - 10.2 | [facility] | | | | | mg/dL | [facility] | | | | | | HEART | | | | | | MEDICAL | | | | | | CENTER | | | | | | LABORATORY | | | | | | [facility] | | + + + + + + | Anion Gap | 9 | 5 - 16 mmol/L | [facility] | | | | | [facility] | | | | | | HE[facility] | | | | | | MEDICAL | | | | | | CENTER | | | | | | LABORATORY | | | | | | [facility] | | + + + + + + | Albumin | 4.2 | 3.3 - 4.8 g/dL | [facility] | | | | | [facility] | | | | | | HEART | | | | | | MEDICAL | | | | | | CENTER | | | | | | LABORATORY | | | | | | [facility] | | + + + + + + | BUN | 18 | 8 - 25 mg/dL | [facility] | | | | | | [facility] | | | | | | HEART | | | | | | MEDICAL | | | | | | CENTER | | | | | | LABORATORY | | | | | | [facility] | | + + + + + + | Creatinine | 1.07 (H) | 0.50 - 1.00 | [facility] | | | | | mg/dL | [facility] | | | | | | HEART | | | | | | MEDICAL | | | | | | CENTER | | | | | | LABORATORY | | | | | | [facility] | | + + + + + + | Glucose | 120 (H) | 65 - 99 mg/dL | [facility] | | | | | [facility] | | | | | | HE[facility] | | | | | | MEDICAL | | | | | | CENTER | | | | | | LABORATORY | | | | | | [facility] | | + + + + + + | Total | 6.0 (L) | 6.1 - 7.8 g/dL | [facility] | | | Protein | | | [facility] | | | | | | HEART | | | | | | MEDICAL | | | | | | CENTER | | | | | | LABORATORY | | | | | | [facility] | | + + + + + + | Alkaline | 72 | 35 - 115 U/L | [facility] | | | Phosphatase | | | [facility] | | | | | | HEART | | | | | | MEDICAL | | | | | | CENTER | | | | | | LABORATORY | | | | | | [facility] | | + + + + + + | ALT | 9 (L) | 10 - 65 U/L | [facility] | | | | | | [facility] | | | | | | HE[facility] | | | | | | MEDICAL | | | | | | CENTER | | | | | | LABORATORY | | | | | | [facility] | | + + + + + + | AST | 29 | 10 - 45 U/L | [facility] | | | | | | [facility] | | | | | | HEART | | | | | | MEDICAL | | | | | | CENTER | | | | | | LABORATORY | | | | | | [facility] | | + + + + + + | Bilirubin | 0.4 | 0.2 - 1.1 mg/dL | [facility] | | | Total | | | [facility] | | | | | | HEART | | | | | | MEDICAL | | | | | | CENTER | | | | | | LABORATORY | | | | | | [facility] | | + + + + + + | Estimated | 55 (L)Comment: eGFR<60 | >=90 | [facility] | | | GFR | consistent with impaired | mL/min/1.73m2 | [facility] | | | | kidney | | HEART | | | | function.Performed by | | MEDICAL | | | | [facility] [address] | | [place] | | | | [place] [address] | | LABORATORY | | | | | | [facility] | | + + + + + + + + | Specimen | + + | Blood specimen | | (specimen) | + + + + + + + | Performing | Address | City/State/Zipcode | Phone Number | | Organization | | | | + + + + + | [facility] | [address] | [place] [address] | | | [facility] | | | | | LABORATORY [facility] | | | | + + + + + CBC no Differential (06/11/2018 4:37 PM PDT) + + + + + + | Component | Value | Ref Range | Performed | Pathologist | | | | | At | Signature | + + + + + + | WBC | 16.3 (H) | 3.8 - 11.0 K/uL | [facility] | | | | | | [facility] | | | | | | HEART | | | | | | MEDICAL | | | | | | CENTER | | | | | | LABORATORY | | | | | | [facility] | | + + + + + + | RBC | 3.68 (L) | 3.70 - 5.10 | [facility] | | | | | M/uL | [facility] | | | | | | HEART | | | | | | MEDICAL | | | | | | CENTER | | | | | | LABORATORY | | | | | | [facility] | | + + + + + + | Hemoglobin | 11.0 (L) | 11.3 - 15.5 | [facility] | | | | | g/dL | [facility] | | | | | | HEART | | | | | | MEDICAL | | | | | | CENTER | | | | | | LABORATORY | | | | | | [facility] | | + + + + + + | Hct | 32.0 (L) | 34.0 - 46.0 % | [facility] | | | | | | [facility] | | | | | | HEART | | | | | | MEDICAL | | | | | | CENTER | | | | | | LABORATORY | | | | | | [facility] | | + + + + + + | MCV | 87.0 | 80.0 - 100.0 fL | [facility] | | | | | | [facility] | | | | | | HEART | | | | | | MEDICAL | | | | | | CENTER | | | | | | LABORATORY | | | | | | [facility] | | + + + + + + | MCH | 29.9 | 27.0 - 34.0 pg | [facility] | | | | | | [facility] | | | | | | HEART | | | | | | MEDICAL | | | | | | CENTER | | | | | | LABORATORY | | | | | | [facility] | | + + + + + + | MCHC | 34.4 | 32.0 - 35.5 | [facility] | | | | | g/dL | [facility]CR[facility] | | | | | | HEART | | | | | | MEDICAL | | | | | | CENTER | | | | | | LABORATORY | | | | | | [facility] | | + + + + + + | RDW-CV | 15.3 | 11.0 - 15.5 % | [facility] | | | | | | [facility] | | | | | | HEART | | | | | | MEDICAL | | | | | | CENTER | | | | | | LABORATORY | | | | | | [facility] | | + + + + + + | Platelet | 228 | 150 - 400 K/uL | [facility] | | | Count | | | [facility]CR[facility] | | | | | | HEART | | | | | | MEDICAL | | | | | | CENTER | | | | | | LABORATORY | | | | | | [facility] | | + + + + + + | MPV | 6.3 (L)Comment: | 7.5 - 11.2 fL | [facility] | | | | Performed by [facility] [address] | | SACRED | | | | [address] [place] | | HEART | | | | [address] | | MEDICAL | | | | | | CENTER | | | | | | LABORATORY | | | | | | CERNER | | + + + + + + + + | Specimen | + + | Blood specimen | | (specimen) | + + + + + + + | Performing | Address | City/State/Zipcode | Phone Number | | Organization | | | | + + + + + | [facility] | [address] | [place] [address] | | | [facility] | | | | | LABORATORY [facility] | | | | + + + + + Lactic Acid, Arterial, Respiratory (06/11/2018 4:36 PM PDT) + + + + + + | Component | Value | Ref Range | Performed | Pathologist | | | | | At | Signature | + + + + + + | Lactate, | 1.0Comment: Performed | 0.5 - 1.6 | [facility] | | | Arterial | by [facility] [address], | mmol/L | SACRED | | | | [place] [address] | | HEART | | | |Performed by [facility] [address], [place] [address] | | MEDICAL | | | | | | CENTER | | | | | | LABORATORY | | | | | | C[facility]ER | | + + + + + + + + | Specimen | + + | Blood specimen | | (specimen) | + + + + + + + | Performing | Address | City/State/Zipcode | Phone Number | | Organization | | | | + + + + + | [facility] | [address] | [place] [address] | | | [facility] | | | | | LABORATORY [place] | | | | + + + + + Calcium, Ionized, Respiratory (06/11/2018 4:36 PM PDT) + + + + ---+ + | Component | Value | Ref Range | Performed | Pathologist | | | | | At | Signature | + + + + ---+ + | Calcium, | 5.09 | 4.75 - 5.30 | [facility] | | | Ionized | | mg/dL | [facility] | | | | | | HEART | | | | | | MEDICAL | | | | | | CENTER | | | | | | LABORATOR Y | | | | | | [facility] | | + + + + ---+ + | Calcium, pH | 5.06Comment: Performed | 4.75 - 5.30 | [facility] | | | Normalized | by [facility] [address], | mg/dL | SACRED | | | | [place] [address] | | HEART | | | |Performed by [facility] [address], [place] [address] | | MEDICAL | | | | | | CENTER | | | | | | LABORATOR Y | | | | | | C[facility]ER | | + + + + ---+ + + + | Specimen | + + | Blood specimen | | (specimen) | + + + + + + + | Performing | Address | City/State/Zipcode | Phone Number | | Organization | | | | + + + + + | [facility] | [address] | [place] [address] | | | [facility] | | | | | LABORATORY [facility] | | | | + + + + + Glucose, Respiratory (06/11/2018 4:36 PM PDT) + + + + + + | Component | Value | Ref Range | Performed | Pathologist | | | | | At | Signature | + + + + + + | Glucose | 122 (H)Comment: | 65 - 99 mg/dL | [facility] | | | | Performed by [facility] [address] | | SACRED | | | | [address], [place] | | HEART | | | | [address] | | MEDICAL | | | | | | CENTER | | | | | | LABORATORY | | | | | | CERN[facility] | | + + + + + + + + | Specimen | + + | Blood specimen | | (specimen) | + + + + + + + | Performing | Address | City/State/Zipcode | Phone Number | | Organization | | | | + + + + + | [facility] | [address] | [place] [address] | | | [facility] | | | | | LABORATORY [place] | | | | + + + + + Blood Gas, Arterial (06/11/2018 4:36 PM PDT) + + + +--------- ----+ + | Component | Value | Ref Range | Performe d | Pathologist | | | | | At | Signature | + + + +--------- ----+ + | pH, | 7.39 | 7.37 - 7.47 | [facility] | | | Arterial | | | SACRED | | | | | | HEART | | | | | | MEDICAL | | | | | | CENTER | | | | | | LABORATO RY | | | | | | [facility] | | + + + +--------- ----+ + | pCO2, | 46 (H) | 32 - 43 mmHg | [facility] | | | Arterial | | | SACRED | | | | | | HEART | | | | | | MEDICAL | | | | | | CENTER | | | | | | LABORATO RY | | | | | | [facility] | | + + + +--------- ----+ + | pO2, | 141 (H) | 65 - 80 mmHg | [facility] | | | Arterial | | | SACRED | | | | | | HEART | | | | | | MEDICAL | | | | | | CENTER | | | | | | LABORATO RY | | | | | | [facility] | | + + + +--------- ----+ + | Base | 2.6 (H) | -2.5 - 2.5 | [facility] | | | Excess, | | mmol/L | SACRED | | | Arterial | | | HEART | | | | | | MEDICAL | | | | | | CENTER | | | | | | LABORATO RY | | | | | | [facility] | | + + + +--------- ----+ + | HCO3, | 27.6 | 23.0 - 28.0 | [facility] | | | Arterial | | mmol/L | SACRED | | | | | | HEART | | | | | | MEDICAL | | | | | | CENTER | | | | | | LABORATO RY | | | | | | [facility] | | + + + +--------- ----+ + | FiO2 | 50 | | [facility] | | | | | | [facility]CRED | | | | | | HEART | | | | | | MEDICAL | | | | | | CENTER | | | | | | LABORATO RY | | | | | | [facility] | | + + + +--------- ----+ + | ROUTE | SIMV | | [facility] | | | | | | SACRED | | | | | | HEART | | | | | | MEDICAL | | | | | | CENTER | | | | | | LABORATO RY | | | | | | [facility] | | + + + +--------- ----+ + | Rate | 14 | | [facility] | | | | | | SACRED | | | | | | HEART | | | | | | MEDICAL | | | | | | CENTER | | | | | | LABORATO RY | | | | | | [facility] | | + + + +--------- ----+ + | VT | 550 | | [facility] | | | | | | SACRED | | | | | | HEART | | | | | | MEDICAL | | | | | | CENTER | | | | | | LABORATO RY | | | | | | [facility] | | + + + +--------- ----+ + | PEEP | 5 | | [facility] | | | | | | SACRED | | | | | | HEART | | | | | | MEDICAL | | | | | | CENTER | | | | | | LABORATO RY | | | | | | [facility] | | + + + +--------- ----+ + | Methemoglob | 1.0 | 0.4 - 1.5 % | [facility] | | | in, Venous | | | SACRED | | | | | | HEART | | | | | | MEDICAL | | | | | | CENTER | | | | | | LABORATO RY | | | | | | [facility] | | + + + +--------- ----+ + | Comment | PS8 [id number] | | [facility] | | | | | | [facility]CRED | | | | | | HEART | | | | | | MEDICAL | | | | | | CENTER | | | | | | LABORATO RY | | | | | | [facility] | | + + + +--------- ----+ + | Oxygen | 15.7 | 15.0 - 23.0 % | [facility] | | | Content, | | | SACRED | | | Arterial | | | HEART | | | | | | MEDICAL | | | | | | CENTER | | | | | | LABORATO RY | | | | | | [facility] | | + + + +--------- ----+ + | Carboxyhemo | 1.2 | 1.0 - 3.0 % | [facility] | | | globin | | | SACRED | | | | | | HEART | | | | | | MEDICAL | | | | | | CENTER | | | | | | LABORATO RY | | | | | | [facility] | | + + + +--------- ----+ + | O2SAT COOX | 97.3Comment: Performed | 92.0 - 99.0 % | [facility] | | | ARTERIAL | by [facility] [address], | | SACRED | | | | [place] [address] | | HEART | | | |Performed by [facility] [address], [place] [address] | | MEDICAL | | | | | | CENTER | | | | | | LABORATO RY | | | | | | C[facility]ER | | + + + +--------- ----+ + + + | Specimen | + + | Blood specimen | | (specimen) - Artery | | sample (specimen) | + + + + + + + | Performing | Address | City/State/Zipcode | Phone Number | | Organization | | | | + + + + + | [facility] | [address] | [place] [address] | | | [facility] | | | | | LABORATORY [place] | | | | + + + + + XR Chest AP Portable (06/11/2018 4:34 PM PDT) + + | Specimen | + + | | + + + + + | Narrative | Performed At | + + + | CHEST SINGLE VIEW CLINICAL INFORMATION: Post operative | [facility] | | coronary artery bypass graft. COMPARISON: Two view chest dated | | | 06/07/2018. FINDINGS: Interval postoperative changes of median | | | sternotomy and CABG. Mild bibasilar densities, likely atelectasis. | | | No pneumothorax. Cardiac silhouette is unchanged. Lines and | | | support devices as follows: Endotracheal tube tip is 4.2 cm above the | | | candice. Right IJ central venous catheter tip is in the region of the | | | atriocaval junction. Distal enteric tube tip is within the stomach. | | | Mediastinal and left pleural drains are in place. IMPRESSION: | | | 1. Expected postoperative changes status post median sternotomy and | | | CABG. 2. Lines and support devices in expected, appropriate positions | | | as described. Signed by: MD Briceno Jeffrey Sign | | | Date/Time: 06/11/2018 5:23 PM | | + + + + + | Procedure Note | + + | Tim, Rad Results In - 06/11/2018 5:27 PM PDT | | CHEST SINGLE VIEW | | | | CLINICAL INFORMATION: | | Post operative coronary artery bypass graft. | | | | COMPARISON: | | Two view chest dated 06/07/2018. | | | | FINDINGS: | | Interval postoperative changes of median sternotomy and CABG. Mild | | bibasilar densities, likely atelectasis. No pneumothorax. Cardiac | | silhouette is unchanged. | | | | Lines and support devices as follows: | | Endotracheal tube tip is 4.2 cm above the candice. | | Right IJ central venous catheter tip is in the region of the | | atriocaval junction. | | Distal enteric tube tip is within the stomach. | | Mediastinal and left pleural drains are in place. | | | | IMPRESSION: | | 1. Expected postoperative changes status post median sternotomy and | | CABG. | | 2. Lines and support devices in expected, appropriate positions as | | described. | | | | | | | | | | Signed by: MD Briceno Jeffrey | | Sign Date/Time: 06/11/2018 5:23 PM | + + + +---------+ + + | Performing | Address | City/State/Zipcode | Phone Number | | Organization | | | | + +---------+ + + | [facility] | | | | + +---------+ + + Lactic Acid, Arterial, Surgery (06/11/2018 3:25 PM PDT) + + + + + + | Component | Value | Ref Range | Performed | Pathologist | | | | | At | Signature | + + + + + + | Lactate, | 1.9 (H)Comment: | 0.5 - 1.6 | [facility] | | | Arterial | Performed by [facility] [address] | mmol/L | SACRED | | | | [address] [place] | | HEART | | | | [address] | | MEDICAL | | | | | | CENTER | | | | | | LABORATORY | | | | | | [facility] | | + + + + + + + + | Specimen | + + | Blood specimen | | (specimen) | + + + + + + + | Performing | Address | City/State/Zipcode | Phone Number | | Organization | | | | + + + + + | [facility] | [address] | [place] [address] | | | [facility] | | | | | LABORATORY [facility] | | | | + + + + + Blood Gas , Arterial, Surgery (06/11/2018 3:25 PM PDT) + + + +--------- ----+ + | Component | Value | Ref Range | Performe d | Pathologist | | | | | At | Signature | + + + +--------- ----+ + | pH, | 7.37 | 7.37 - 7.47 | [facility] | | | Arterial | | | SACRED | | | | | | HEART | | | | | | MEDICAL | | | | | | CENTER | | | | | | LABORATO RY | | | | | | [facility] | | + + + +--------- ----+ + | pCO2, | 42 | 32 - 43 mmHg | [facility] | | | Arterial | | | SACRED | | | | | | HEART | | | | | | MEDICAL | | | | | | CENTER | | | | | | LABORATO RY | | | | | | [facility] | | + + + +--------- ----+ + | pO2, | 122 (H) | 65 - 80 mmHg | [facility] | | | Arterial | | | SACRED | | | | | | HEART | | | | | | MEDICAL | | | | | | CENTER | | | | | | LABORATO RY | | | | | | [facility] | | + + + +--------- ----+ + | Oxygen | 11.4 (L) | 15.0 - 23.0 % | [facility] | | | Content, | | | SACRED | | | Arterial | | | HEART | | | | | | MEDICAL | | | | | | CENTER | | | | | | LABORATO RY | | | | | | [facility] | | + + + +--------- ----+ + | HGB O2 SAT | 96.7 | 92.0 - 99.9 % | [facility] | | | | | | SACRED | | | | | | HEART | | | | | | MEDICAL | | | | | | CENTER | | | | | | LABORATO RY | | | | | | [facility] | | + + + +--------- ----+ + | Hemoglobin | 8.2 (L) | 11.3 - 15.5 | [facility] | | | | | g/dL | SACRED | | | | | | HEART | | | | | | MEDICAL | | | | | | CENTER | | | | | | LABORATO RY | | | | | | [facility] | | + + + +--------- ----+ + | HCO3, | 24.2 | 23.0 - 28.0 | [facility] | | | Arterial | | mmol/L | SACRED | | | | | | HEART | | | | | | MEDICAL | | | | | | CENTER | | | | | | LABORATO RY | | | | | | [facility] | | + + + +--------- ----+ + | Base | -0.4 | -2.5 - 2.5 | [facility] | | | Excess, | | | SACRED | | | Arterial | | | HEART | | | | | | MEDICAL | | | | | | CENTER | | | | | | LABORATO RY | | | | | | [facility] | | + + + +--------- ----+ + | Carboxyhemo | 1.4 | 1.0 - 3.0 % | [facility] | | | globin | | | SACRED | | | | | | HEART | | | | | | MEDICAL | | | | | | CENTER | | | | | | LABORATO RY | | | | | | [facility] | | + + + +--------- ----+ + | Methemoglob | 0.7 | 0.4 - 1.5 % | [facility] | | | in, Venous | | | SACRED | | | | | | HEART | | | | | | MEDICAL | | | | | | CENTER | | | | | | LABORATO RY | | | | | | [facility] | | + + + +--------- ----+ + | Calcium, | 5.38 (H) | 4.75 - 5.30 | [facility] | | | Ionized | | mg/dL | SACRED | | | | | | HEART | | | | | | MEDICAL | | | | | | CENTER | | | | | | LABORATO RY | | | | | | [facility] | | + + + +--------- ----+ + | Calcium, pH | 5.30 | 4.75 - 5.30 | [facility] | | | Normalized | | mg/dL | SACRED | | | | | | HEART | | | | | | MEDICAL | | | | | | CENTER | | | | | | LABORATO RY | | | | | | [facility] | | + + + +--------- ----+ + | K | 5.2 (H) | 3.5 - 5.0 | [facility] | | | | | mmol/L | SACRED | | | | | | HEART | | | | | | MEDICAL | | | | | | CENTER | | | | | | LABORATO RY | | | | | | [facility] | | + + + +--------- ----+ + | Glucose | 107 (H) | 65 - 99 mg/dL | [facility] | | | | | | SACRED | | | | | | HEART | | | | | | MEDICAL | | | | | | CENTER | | | | | | LABORATO RY | | | | | | [facility] | | + + + +--------- ----+ + | Na | 142Comment: Performed | 135 - 145 | [facility] | | | | by [facility] [address], | mmol/L | SACRED | | | | [place] [address] | | HEART | | | |Performed by [facility] [address], [place] [address] | | MEDICAL | | | | | | CENTER | | | | | | LABORATO RY | | | | | | [facility] | | + + + +--------- ----+ + + + | Specimen | + + | Blood specimen | | (specimen) | + + + + + + + | Performing | Address | City/State/Zipcode | Phone Number | | Organization | | | | + + + + + | [facility] | [address] | [place] [address] | | | [facility] | | | | | LABORATORY [facility] | | | | + + + + + DIC Panel (06/11/2018 2:56 PM PDT) + + + + + + | Component | Value | Ref Range | Performed | Pathologist | | | | | At | Signature | + + + + + + | D-DIMER, | 2.98 (H)Comment: This | 0.00 - 0.49 | [facility] | | | QUANTITATIV | quantitative D Dimer | ug/mL FEU | SACRED | | | E | assay has been evaluated | | HEART | | | | for screening for | | MEDICAL | | | | venous thrombotic | | CENTER | | | | disease, and may be | | LABORATORY | | | | useful in ruling out, | | [facility] | | | | but not ruling in | | | | | | disease. Values less | | | | | | than 0.40 ug/mL have a | | | | | | negative predictive | | | | | | value of >95% for ruling | | | | | | out large pulmonary | | | | | | emboli or proximal deep | | | | | | vein thrombosis. Distal | | | | | | DVT are not excluded. | | | | | | Rheumatoid factor may | | | | | | falsely elevate the | | | | | | determined D Dimer | | | | | | levels. | | | | + + + + + + | Fibrinogen | 174 (L) | 211 - 419 mg/dL | [facility] | | | | | | SACRED | | | | | | HEART | | | | | | MEDICAL | | | | | | CENTER | | | | | | LABORATORY | | | | | | [facility] | | + + + + + + | INR | 1.4 (H)Comment: Usual | 0.9 - 1.1 | [facility] | | | | oral anticoagulant | | SACRED | | | | range: 2.0 to 3.0 High | | HEART | | | | level oral | | MEDICAL | | | | anticoagulant range: 2.5 | | CENTER | | | | to 3.5 | | LABORATORY | | | | | | [facility] | | + + + + + + | Platelet | 208 | 150 - 400 K/uL | [facility] | | | Count | | | SACRED | | | | | | HEART | | | | | | MEDICAL | | | | | | CENTER | | | | | | LABORATORY | | | | | | [facility] | | + + + + + + | Protime | 17.4 (H) | 12.0 - 14.2 sec | [facility] | | | | | | SACRED | | | | | | HEART | | | | | | MEDICAL | | | | | | CENTER | | | | | | LABORATORY | | | | | | [facility] | | + + + + + + | RBC | Normal | Normal | [facility] | | | Morphology | | | SACRED | | | | | | HEART | | | | | | MEDICAL | | | | | | CENTER | | | | | | LABORATORY | | | | | | [facility] | | + + + + + + | Thrombin | 21.1 (H) | 15.6 - 20.0 sec | [facility] | | | Time, | | | SACRED | | | Patient | | | HEART | | | | | | MEDICAL | | | | | | CENTER | | | | | | LABORATORY | | | | | | [facility] | | + + + + + + | Thrombin | 16.0 | sec | [facility] | | | Time, | | | SACRED | | | Patient/PSO | | | HEART | | | 4 Mix | | | MEDICAL | | | | | | CENTER | | | | | | LABORATORY | | | | | | [facility] | | + + + + + + | aPTT, | 31Comment: Deep venous | 26 - 36 sec | [facility] | | | Patient | thrombosis or pulmonary | | SACRED | | | | embolism therapeutic | | HEART | | | | heparin levels of 0.3 to | | MEDICAL | | | | 0.7 Units/mL anti | | CENTER | | | | FactorXa levels usually | | LABORATORY | | | | correspond to an aPTT of | | [facility] | | | | 65 to 99 seconds. Acute | | | | | | cardiac syndrom | | | | | | therapeutic range based | | | | | | on heparin levels of | | | | | | 0.2 to 0.5 usually | | | | | | correspond to an aPTT of | | | | | | 57 to 76 seconds. | | | | | | Pediatric guidelines | | | | | | suggested heparin levels | | | | | | of 0.35 to 0.7 usually | | | | | | correspond to an aPTT of | | | | | | 69 to 99 | | | | | | seconds.Performed by [facility] | | | | | | [address], | | | | | | [place] [address] | | | | + + + + + + + + | Specimen | + + | Blood specimen | | (specimen) | + + + + + + + | Performing | Address | City/State/Zipcode | Phone Number | | Organization | | | | + + + + + | [facility] | [address] | [place] [address] | | | [facility] | | | | | LABORATORY [facility] | | | | + + + + + Lactic Acid, Arterial, Surgery (06/11/2018 2:50 PM PDT) + + + + + + | Component | Value | Ref Range | Performed | Pathologist | | | | | At | Signature | + + + + + + | Lactate, | 2.0 (H)Comment: | 0.5 - 1.6 | [facility] | | | Arterial | Performed by [facility] [address] | mmol/L | [facility] | | | | [address] [place] | | HEART | | | | [id number] | | MEDICAL | | | | | | CENTER | | | | | | LABORATORY | | | | | | [facility] | | + + + + + + + + | Specimen | + + | Blood specimen | | (specimen) | + + + + + + + | Performing | Address | City/State/Zipcode | Phone Number | | Organization | | | | + + + + + | [facility] | [address] | [place] [address] | | | [facility] | | | | | LABORATORY [facility] | | | | + + + + + Blood Gas , Arterial, Surgery (06/11/2018 2:50 PM PDT) + + + +--------- ----+ + | Component | Value | Ref Range | Performe d | Pathologist | | | | | At | Signature | + + + +--------- ----+ + | pH, | 7.37 | 7.37 - 7.47 | [facility] | | | Arterial | | | [facility] | | | | | | HEART | | | | | | MEDICAL | | | | | | CENTER | | | | | | [facility]ATO [facility] | | | | | | [facility] | | + + + +--------- ----+ + | pCO2, | 43 | 32 - 43 mmHg | [facility] | | | Arterial | | | [facility] | | | | | | HEART | | | | | | MEDICAL | | | | | | CENTER | | | | | | LAB[facility]ATO [facility] | | | | | | [facility] | | + + + +--------- ----+ + | pO2, | 336 (H) | 65 - 80 mmHg | [facility] | | | Arterial | | | [facility] | | | | | | HEART | | | | | | MEDICAL | | | | | | CENTER | | | | | | LABORATO [facility] | | | | | | [facility] | | + + + +--------- ----+ + | Oxygen | 10.8 (L) | 15.0 - 23.0 % | [facility] | | | Content, | | | [facility] | | | Arterial | | | HEART | | | | | | MEDICAL | | | | | | CENTER | | | | | | LABORATO RY | | | | | | [facility] | | + + + +--------- ----+ + | HGB O2 SAT | 97.8 | 92.0 - 99.9 % | [facility] | | | | | | [facility] | | | | | | HEART | | | | | | MEDICAL | | | | | | CENTER | | | | | | LAB[facility]ATO [facility] | | | | | | [facility] | | + + + +--------- ----+ + | Hemoglobin | 7.2 (L) | 11.3 - 15.5 | [facility] | | | | | g/dL | [facility] | | | | | | HEART | | | | | | MEDICAL | | | | | | CENTER | | | | | | LAB[facility]ATO [facility] | | | | | | [facility] | | + + + +--------- ----+ + | HCO3, | 24.2 | 23.0 - 28.0 | [facility] | | | Arterial | | mmol/L | [facility] | | | | | | HEART | | | | | | MEDICAL | | | | | | CENTER | | | | | | LABORATO [facility] | | | | | | [facility] | | + + + +--------- ----+ + | Base | -0.4 | -2.5 - 2.5 | [facility] | | | Excess, | | | [facility] | | | Arterial | | | HEART | | | | | | MEDICAL | | | | | | CENTER | | | | | | LABORATO RY | | | | | | [facility] | | + + + +--------- ----+ + | Carboxyhemo | 1.2 | 1.0 - 3.0 % | [facility] | | | globin | | | [facility] | | | | | | [facility] | | | | | | MEDICAL | | | | | | CENTER | | | | | | [facility] | | | | | | [facility] | | + + + +--------- ----+ + | Methemoglob | 0.8 | 0.4 - 1.5 % | [facility] | | | in, Venous | | | [facility] | | | | | | [facility] | | | | | | MEDICAL | | | | | | CENTER | | | | | | LAB[facility] | | | | | | [facility] | | + + + +--------- ----+ + | Calcium, | 4.73 (L) | 4.75 - 5.30 | [facility] | | | Ionized | | mg/dL | [facility] | | | | | | [facility] | | | | | | MEDICAL | | | | | | CENTER | | | | | | LAB[facility]AT[facility] | | | | | | [facility] | | + + + +--------- ----+ + | Calcium, pH | 4.66 (L) | 4.75 - 5.30 | [facility] | | | Normalized | | mg/dL | [facility] | | | | | | [facility] | | | | | | MEDICAL | | | | | | CENTER | | | | | | LAB[facility] | | | | | | [facility] | | + + + +--------- ----+ + | K | 5.3 (H) | 3.5 - 5.0 | [facility] | | | | | mmol/L | [facility] | | | | | | [facility] | | | | | | MEDICAL | | | | | | CENTER | | | | | | LAB[facility]AT[facility] | | | | | | [facility] | | + + + +--------- ----+ + | Glucose | 108 (H) | 65 - 99 mg/dL | [facility] | | | | | | [facility] | | | | | | [facility] | | | | | | MEDICAL | | | | | | CENTER | | | | | | LAB[facility]AT[facility] | | | | | | [facility] | | + + + +--------- ----+ + | Na | 141Comment: Performed | 135 - 145 | [facility] | | | | by [facility] [address], | mmol/L | [facility] | | | | [place] [address] | | HEART | | | |Performed by [facility] [address], [place] [address] | | MEDICAL | | | | | | CENTER | | | | | | LABORATO RY | | | | | | [facility] | | + + + +--------- ----+ + + + | Specimen | + + | Blood specimen | | (specimen) | + + + + + + + | Performing | Address | City/State/Zipcode | Phone Number | | Organization | | | | + + + + + | [facility] | [address] | [place] [address] | | | [facility] | | | | | LABORAT[facility] | | | | + + + + + Lactic Acid, Arterial, Surgery (06/11/2018 2:00 PM PDT) + + + + + + | Component | Value | Ref Range | Performed | Pathologist | | | | | At | Signature | + + + + + + | Lactate, | 1.5Comment: Performed | 0.5 - 1.6 | [facility] | | | Arterial | by [facility] [address], | mmol/L | [facility] | | | | [place] | | HEART | | | |Performed by [facility] [address], [place], [place] | | MEDICAL | | | | | | CENTER | | | | | | LABORATORY | | | | | | [facility] | | + + + + + + + + | Specimen | + + | Blood specimen | | (specimen) | + + + + + + + | Performing | Address | City/State/Zipcode | Phone Number | | Organization | | | | + + + + + | [facility] | [address] | [place], [place] | | | [facility] | | | | | LABORATORY [facility] | | | | + + + + + Blood Gas , Arterial, Surgery (06/11/2018 2:00 PM PDT) + + + + + + | Component | Value | Ref Range | Performed | Pathologist | | | | | At | Signature | + + + + + + | pH, | 7.34 (L)Comment: | 7.37 - 7.47 | [facility] | | | Arterial | Results Delivered to | | [facility] | | | | [facility] | | HEART | | | |Results Delivered to [facility] | | MEDICAL | | | | | | CENTER | | | | | | LABORATORY | | | | | | [facility] | | + + + + + + | pCO2, | 48 (H) | 32 - 43 mmHg | [facility] | | | Arterial | | | [facility] | | | | | | HEART | | | | | | MEDICAL | | | | | | CENTER | | | | | | LABORATORY | | | | | | [facility] | | + + + + + + | pO2, | 206 (H) | 65 - 80 mmHg | [facility] | | | Arterial | | | [facility] | | | | | | HEART | | | | | | MEDICAL | | | | | | CENTER | | | | | | LABORATORY | | | | | | [facility] | | + + + + + + | Oxygen | 11.3 (L) | 15.0 - 23.0 % | [facility] | | | Content, | | | [facility] | | | Arterial | | | HEART | | | | | | MEDICAL | | | | | | CENTER | | | | | | LABORATORY | | | | | | [facility] | | + + + + + + | HGB O2 SAT | 97.5 | 92.0 - 99.9 % | [facility] | | | | | | [facility] | | | | | | HEART | | | | | | MEDICAL | | | | | | CENTER | | | | | | LABORATORY | | | | | | [facility] | | + + + + + + | Hemoglobin | 7.9 (L) | 11.3 - 15.5 | [facility] | | | | | g/dL | [facility] | | | | | | HEART | | | | | | MEDICAL | | | | | | CENTER | | | | | | LABORATORY | | | | | | [facility] | | + + + + + + | HCO3, | 24.9 | 23.0 - 28.0 | [facility] | | | Arterial | | mmol/L | [facility] | | | | | | HEART | | | | | | MEDICAL | | | | | | CENTER | | | | | | LABORATORY | | | | | | [facility] | | + + + + + + | Base | -0.1 | -2.5 - 2.5 | [facility] | | | Excess, | | | [facility] | | | Arterial | | | HEART | | | | | | MEDICAL | | | | | | CENTER | | | | | | LABORATORY | | | | | | [facility] | | + + + + + + | Carboxyhemo | 0.7 (L) | 1.0 - 3.0 % | [facility] | | | globin | | | [facility] | | | | | | HEART | | | | | | MEDICAL | | | | | | CENTER | | | | | | LABORATORY | | | | | | [facility] | | + + + + + + | Methemoglob | 0.9 | 0.4 - 1.5 % | [facility] | | | in, Venous | | | [facility] | | | | | | HEART | | | | | | MEDICAL | | | | | | CENTER | | | | | | LABORATORY | | | | | | [facility] | | + + + + + + | Calcium, | 3.56 (L) | 4.75 - 5.30 | [facility] | | | Ionized | | mg/dL | [facility] | | | | | | HEART | | | | | | MEDICAL | | | | | | CENTER | | | | | | LABORATORY | | | | | | [facility] | | + + + + + + | Calcium, pH | 3.44 (L) | 4.75 - 5.30 | [facility] | | | Normalized | | mg/dL | [facility] | | | | | | HEART | | | | | | MEDICAL | | | | | | CENTER | | | | | | LABORATORY | | | | | | [facility] | | + + + + + + | K | 6.7 (H) | 3.5 - 5.0 | [facility] | | | | | mmol/L | [facility] | | | | | | HEART | | | | | | MEDICAL | | | | | | CENTER | | | | | | LABORATORY | | | | | | [facility] | | + + + + + + | Glucose | 144 (H)Comment: | 65 - 99 mg/dL | [facility] | | | | Performed by [facility] [address] | | [facility]CR[facility] | | | | [address] [place] [place] | | HEART | | | | [address] | | MEDICAL | | | | | | CENTER | | | | | | LABORATORY | | | | | | C[facility]ER | | + + + + + + + + | Specimen | + + | Blood specimen | | (specimen) | + + + + + + + | Performing | Address | City/State/Zipcode | Phone Number | | Organization | | | | + + + + + | [facility] | [address] | [place] [address] | | | [facility] | | | | | [place] | | | | + + + + + Lactic Acid, Arterial, Surgery (06/11/2018 1:34 PM PDT) + + + + + + | Component | Value | Ref Range | Performed | Pathologist | | | | | At | Signature | + + + + + + | Lactate, | 1.2Comment: Performed | 0.5 - 1.6 | [facility] | | | Arterial | by [facility] [address], | mmol/L | SACRED | | | | [place] [address] | | HEART | | | |Performed by [facility] [address], [place] [address] | | MEDICAL | | | | | | CENTER | | | | | | LABORATORY | | | | | | C[facility] | | + + + + + + + + | Specimen | + + | Blood specimen | | (specimen) | + + + + + + + | Performing | Address | City/State/Zipcode | Phone Number | | Organization | | | | + + + + + | [facility] | [address] | [place] [address] | | | [facility] | | | | | LABORAT[facility] | | | | + + + + + Blood Gas , Arterial, Surgery (06/11/2018 1:34 PM PDT) + + + + + -+ | Component | Value | Ref Range | Performed | Pathologist | | | | | At | Signature | + + + + + -+ | pH, | 7.34 (L)Comment: | 7.37 - 7.47 | [facility] | | | Arterial | Results Delivered to | | [facility] | | | | [facility] | | HEART | | | |Results Delivered to [facility] | | MEDICAL | | | | | | CENTER | | | | | | LABORATORY | | | | | | [facility] | | + + + + + -+ | pCO2, | 47 (H) | 32 - 43 mmHg | [facility] | | | Arterial | | | [facility] | | | | | | HEART | | | | | | MEDICAL | | | | | | CENTER | | | | | | LABORATORY | | | | | | [facility] | | + + + + + -+ | pO2, | 188 (H) | 65 - 80 mmHg | [facility] | | | Arterial | | | [facility] | | | | | | HEART | | | | | | MEDICAL | | | | | | CENTER | | | | | | LABORATORY | | | | | | [facility] | | + + + + + -+ | Oxygen | 10.8 (L) | 15.0 - 23.0 % | [facility] | | | Content, | | | [facility] | | | Arterial | | | HEART | | | | | | MEDICAL | | | | | | CENTER | | | | | | LABORATORY | | | | | | [facility] | | + + + + + -+ | HGB O2 SAT | 97.5 | 92.0 - 99.9 % | [facility] | | | | | | [facility] | | | | | | HEART | | | | | | MEDICAL | | | | | | CENTER | | | | | | LABORATORY | | | | | | [facility] | | + + + + + -+ | Hemoglobin | 7.6 (L) | 11.3 - 15.5 | [facility] | | | | | g/dL | [facility] | | | | | | HEART | | | | | | MEDICAL | | | | | | CENTER | | | | | | LABORATORY | | | | | | [facility] | | + + + + + -+ | HCO3, | 25.0 | 23.0 - 28.0 | [facility] | | | Arterial | | mmol/L | [facility] | | | | | | HEART | | | | | | MEDICAL | | | | | | CENTER | | | | | | LABORATORY | | | | | | [facility] | | + + + + + -+ | Base | 0.0 | -2.5 - 2.5 | [facility] | | | Excess, | | | [facility] | | | Arterial | | | HEART | | | | | | MEDICAL | | | | | | CENTER | | | | | | LABORATORY | | | | | | [facility] | | + + + + + -+ | Carboxyhemo | 0.7 (L) | 1.0 - 3.0 % | [facility] | | | globin | | | [facility] | | | | | | HEART | | | | | | MEDICAL | | | | | | CENTER | | | | | | LABORATORY | | | | | | [facility] | | + + + + + -+ | Methemoglob | 0.8 | 0.4 - 1.5 % | [facility] | | | in, Venous | | | [facility] | | | | | | HEART | | | | | | MEDICAL | | | | | | CENTER | | | | | | LABORATORY | | | | | | [facility] | | + + + + + -+ | Calcium, | 3.08 (L) | 4.75 - 5.30 | [facility] | | | Ionized | | mg/dL | [facility] | | | | | | HEART | | | | | | MEDICAL | | | | | | CENTER | | | | | | LABORATORY | | | | | | [facility] | | + + + + + -+ | Calcium, pH | 2.99 (L) | 4.75 - 5.30 | [facility] | | | Normalized | | mg/dL | [facility] | | | | | | HEART | | | | | | MEDICAL | | | | | | CENTER | | | | | | LABORATORY | | | | | | [facility] | | + + + + + -+ | K | 7.0 (H) | 3.5 - 5.0 | [facility] | | | | | mmol/L | [facility] | | | | | | HEART | | | | | | MEDICAL | | | | | | CENTER | | | | | | LABORATORY | | | | | | [facility] | | + + + + + -+ | Glucose | 189 (H)Comment: | 65 - 99 mg/dL | [facility] | | | | Performed by [facility] [address] | | SACR[facility] | | | | [address] [place] | | HEART | | | | [id number] | | MEDICAL | | | | | | CENTER | | | | | | LABORATORY | | | | | | [facility] | | + + + + + -+ + + | Specimen | + + | Blood specimen | | (specimen) | + + + + + + + | Performing | Address | City/State/Zipcode | Phone Number | | Organization | | | | + + + + + | [facility] | [address] | [place] [address] | | | [facility] | | | | | LAB[facility]AT[facility] | | | | + + + + + ECHO Transesophageal (CHIQUITA) (06/11/2018 1:05 PM PDT) + + | Specimen | + + | | + + + + -----+ | Narrative | Performed At | + + -----+ | | [facility] | | Transesophageal Echocardiography Report (CHIQUITA) Demographics Patient | | | Name JAYASHREE KENNEY Room Number 270 | | | ZIYAD Patient Number [id number] Date of | | | Study 06/11/2018 Visit Number [id number] Accession | | | [id number] Interpreting Sharad Richard, | | | MD Number Physician Date | | | of 1955 Referring Physician ELEANOR BERMUDEZ | | | VERONICA Age 62 year(s) 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 Procedure | | | DateDate: 06/11/2018Start: 08:50 AM Height: 68 inchesWeight: 140 | | | poundsBSA: 1.76 m^2BMI: 21.29 kg/m^2 ConclusionsSummaryTEE probe | | | placed by Dr. Bradshaw.Diagnostic exam performed by Dr. Bradshaw | | | (Pre-CPB), Dr. Richard (Post-CPB).Exam interpreted by Dr. Richard.All | | | pertinent intraoperative findings discussed with Dr. Webster. A | | | comprehensive intraoperative CHIQUITA was performed for CABG using 2D, | | | ColorFlow Doppler, Pulsed Wave Doppler, and Continuous Wave Doppler | | | plus 3Drendering without postprocessing.AUC SCA 2b (CABG surgeries.) | | | Pre-procedure Summary Dx:1. Moderately reduced LV systolic function. | | | Visually estimated LVEF 35%.Normal LV size and shape. Normal wall | | | thickness.2. Normal RV size with normal function.3. No obvious atrial | | | enlargement. KEZIA normal size without SEC, masses, orthrombi. IAS | | | intact, no PFO detected.4. Mitral valve normal structure and function. | | | Trace MR with central jet.Moderate MAC.5. Trileaflet aortic valve | | | with normal structure and function. Nosignificant aortic stenosis. No | | | AI.6. Tricuspid valve normal structure and function. Trace TR.7. | | | Pulmonic valve normal Trace NC.8. Visible portions of ascending aorta | | | and arch normal. Grade 2atherosclerotic disease of descending aorta.9. | | | Pulmonary artery . Normal pericardium. No pericardial fluid. | | | No pleural fluid. Post-procedure Summary Dx:1. S/P CABG x 3 (EDWARDS-LAD, | | | SVG-OM, SVG-PDA)2. LV function is improved to borderline with | | | LVEF=50%, previously severelyhypokinetic inferolateral segments are | | | improved.3. No change in right ventricular function compared to | | | preop.4. No change in valves compared to preop.5. No change in visible | | | portions of aorta after decannulation.6. LV and RV function unchanged | | | after sternal closure. No apparentpericardial fluid after sternal | | | closure. No pleural fluid visible aftersternal closure. Procedure:1. | | | CABG x 3 (EDWARDS-LAD, SVG-OM, SVG-PDA). Left Ventricle:Moderately | | | depressed LV fxn with visually estimated LVEF 35%. Normal LV sizeand | | | shape. Normal wall thickness. LV with global mild HK. Mid-basal | | | regionof Inferior/septal, Inferior and lateral castillo with severe HK. | | | Diastolicfunction consistent with impaired relaxation. Note lateral e' | | | not accurated/t mod MAC.POSTOP: LV function is improved to borderline | | | with LVEF=50%, previouslyseverely hypokinetic inferolateral segments | | | are improved. Right Ventricle:Normal RV size. Normal wall thickness. | | | Normal function. Insufficient TR toestimate RV pressures. TAPSE | | | measured with CMQ technology was 21.9mm. FAC=45%.POSTOP: No change | | | compared to preop. Atria:No obvious atrial enlargement. KEZIA normal | | | size without SEC, masses, orthrombi. KEZIA inflow and outflow velocities | | | WNL. IAS intact, no PFO detected.IAS in neutral position without | | | significant deviation or abnormal motionPOSTOP: No change compared to | | | preop. Mitral Valve:Trace mitral regurgitation with central jet. No | | | mitral stenosis Leaflets ofnormal thickness with normal opening. No | | | leaflet prolapse. Moderate MAC NoSAM. No LVOT turbulence.POSTOP: No | | | change compared to preop. Aortic Valve:Trileaflet aortic valve. Normal | | | leaflet motion. Slightly thickened leaflets.No aortic stenosis. No | | | aortic insufficiency.POSTOP: No change compared to preop. Tricuspid | | | Valve:Normal tricuspid leaflet thickness and opening. Trace | | | tricuspidregurgitation. Hepatic vein forward flow S<D.POSTOP: No | | | change compared to preop. Pulmonic Valve:Good visualization of | | | pulmonic valve. Trace pulmonic regurgitation. Nopulmonic | | | stenosis.POSTOP: No change compared to preop.RecommendationGreat | | | Vessels:Measurements LVOT 2.0 cm Aortic Annulus 2.0 cm Sinuses of | | | Valsalva 2.95 cmSTJ 2.4 cm Proximal ASCENDING Aorta 2.8 | | | cmNormally-sized aortic root. Visible portions of ascending aorta | | | normal.Sinotubular junction calcified. Descending aorta of normal | | | diameter.Atherosclerosis in descending aorta is Grade II - thickening | | | 1-4 mm withoutprotruding.. Pulmonary artery is normal.POSTOP: No | | | change in visible portions of aorta compared to preop | | | afterdecannulation. Other:Normal pericardium,no pericardial effusion. | | | No pleural effusion.POSTOP: No pericardial or pleural effusion after | | | sternal closure. Comments:1. Images acquired during positive | | | pressureventilation under generalanesthesia.2. Preop rhythm: SR. | | | Postop rhythm SR.3. Vasoactive medications during preop image | | | acquistion: Phenylephrineinfusion titrated to maintain normal BP. | | | Vasoactive medications duringpostop image acquistion: None. All pre | | | and post-CPB CHIQUITA findings discussed with Dr. Webster. | | | Signature | | | | | | PM | | | -------- Valves Mitral Valve Peak E-Wave: 60.6 cm/s Peak A-Wave: | | | 66.8 cm/s Lateral e' | | | Velocity: 4.42 cm/s | | | Lateral E/e' Ratio:13.71 Aortic Valve Peak Velocity: 121 cm/s | | | Mean Gradient: 3 mmHg Peak Gradient: 5.86 mmHg LVOT | | | LVOT Diameter: 2 cm Structures Left Atrium LA Major:0.237 Left | | | Ventricle PW Diastolic: 0.78 cm EF Calculated: 53.8% | | | MiscellaneousAorta Ascending Aorta: 2.8 cm | | |No obvious atrial enlargement. KEZIA normal size without SEC, masses, or | | |thrombi. KEZIA inflow and outflow velocities WNL. IAS intact, no PFO detected. | | |IAS in neutral position without significant deviation or abnormal motion | | |POSTOP: No change compared to preop. | | | | | |Mitral Valve: | | |Trace mitral regurgitation with central jet. No mitral stenosis Leaflets of | | |normal thickness with normal opening. No leaflet prolapse. Moderate MAC No | | |ALEKSANDER. No LVOT turbulence. | | |POSTOP: No change compared to preop. | | | | | |Aortic Valve: | | |Trileaflet aortic valve. Normal leaflet motion. Slightly thickened leaflets. | | |No aortic stenosis. No aortic insufficiency. | | |POSTOP: No change compared to preop. | | | | | |Tricuspid Valve: | | |Normal tricuspid leaflet thickness and opening. Trace tricuspid | | |regurgitation. Hepatic vein forward flow S<D. | | |POSTOP: No change compared to preop. | | | | | |Pulmonic Valve: | | |Good visualization of pulmonic valve. Trace pulmonic regurgitation. No | | |pulmonic stenosis. | | |POSTOP: No change compared to preop. | | |Recommendation | | |Great Vessels: | | |Measurements LVOT 2.0 cm Aortic Annulus 2.0 cm Sinuses of Valsalva 2.95 cm | | |STJ 2.4 cm Proximal ASCENDING Aorta 2.8 cm | | |Normally-sized aortic root. Visible portions of ascending aorta normal. | | |Sinotubular junction calcified. Descending aorta of normal diameter. | | |Atherosclerosis in descending aorta is Grade II - thickening 1-4 mm without | | |protruding.. Pulmonary artery is normal. | | |POSTOP: No change in visible portions of aorta compared to preop after | | |decannulation. | | | | | |Other: | | |Normal pericardium,no pericardial effusion. No pleural effusion. | | |POSTOP: No pericardial or pleural effusion after sternal closure. | | | | | |Comments: | | |1. Images acquired during positive pressureventilation under general | | |anesthesia. | | |2. Preop rhythm: SR. Postop rhythm SR. | | |3. Vasoactive medications during preop image acquistion: Phenylephrine | | |infusion titrated to maintain normal BP. Vasoactive medications during | | |postop image acquistion: None. | | | | | |All pre and post-CPB CHIQUITA findings discussed with Dr. Webster. | | | | | |Signature | | | | | | Electronically signed by Sharad Richard MD(Interpreting physician) on | | | 06/11/2018 04:54 PM | | | | | | | | |Valves | | | | | | Mitral Valve | | | | | | Peak E-Wave: 60.6 cm/s | | | Peak A-Wave: 66.8 cm/s | | | | | | Lateral e' Velocity: 4.42 cm/s | | | Lateral E/e' Ratio:13.71 | | | | | | Aortic Valve | | | | | | Peak Velocity: 121 cm/s Mean Gradient: 3 mmHg | | | Peak Gradient: 5.86 mmHg | | | | | | LVOT | | | | | | LVOT Diameter: 2 cm | | | | | |Structures | | | | | | Left Atrium | | | | | | LA Major:0.237 | | | | | | Left Ventricle | | | | | | PW Diastolic: 0.78 cm | | | EF Calculated: 53.8% | | | | | |Miscellaneous | | |Aorta | | | | | | Ascending Aorta: 2.8 cm | | | | | + + -----+ + + | Procedure Note | + + | Presley Dumont Results In - 06/11/2018 4:54 PM PDT Transesophageal Echocardiography Report | | (CHIQUITA) Demographics Patient Name JAYASHREE KENNEY Room Number 270 | | ZIYAD Patient Number [id number] Date of Study 06/11/2018 Visit | | Number [id number] Interpreting Sharad | | MD Jose Manuel Number Physician Date of 1955 | | Referring Physician ELEANOR MARTIN Age 62 year(s) | | 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 Bradshaw.Diagnostic exam | | performed by Dr. Bradshaw (Pre-CPB), Dr. Richard (Post-CPB).Exam interpreted by | | Jose Manuel.All pertinent intraoperative findings discussed with Dr. Webster.A comprehensive | | intraoperative CHIQUITA was performed for CABG using 2D, ColorFlow Doppler, Pulsed Wave | | Doppler, and Continuous Wave Doppler plus 3Drendering without postprocessing.AUC SCA 2b | | (CABG surgeries.)Pre-procedure Summary Dx:1. Moderately reduced LV systolic function. | | Visually estimated LVEF 35%.Normal LV size and shape. Normal wall thickness.2. Normal RV | | size with normal function.3. No obvious atrial enlargement. KEZIA normal size without | | SEC, masses, orthrombi. IAS intact, no PFO detected.4. Mitral valve normal structure and | | function. Trace MR with central jet.Moderate MAC.5. Trileaflet aortic valve with normal | | structure and function. Nosignificant aortic stenosis. No AI.6. Tricuspid valve normal | | structure and function. Trace TR.7. Pulmonic valve normal Trace NC.8. Visible portions | | of ascending aorta and arch normal. 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 Pulmonary artery cmirnm53. Normal pericardium. No pericardial fluid. No pleural | | fluid.Post-procedure Summary Dx:1. S/P CABG x 3 (EDWARDS-LAD, SVG-OM, SVG-PDA)2. LV | | function is improved to borderline with LVEF=50%, previously severelyhypokinetic | | inferolateral segments are improved.3. No change in right ventricular function compared | | to preop.4. No change in valves compared to preop.5. No change in visible portions of | | aorta after decannulation.6. LV and RV function unchanged after sternal closure. No | | apparentpericardial fluid after sternal closure. No pleural fluid visible aftersternal | | closure.Procedure:1. CABG x 3 (EDWARDS-LAD, SVG-OM, SVG-PDA).Left Ventricle:Moderately | | depressed LV fxn with visually estimated LVEF 35%. Normal LV sizeand shape. Normal wall | | thickness. LV with global mild HK. Mid-basal regionof Inferior/septal, Inferior and | | lateral castillo with severe HK. Diastolicfunction consistent with impaired relaxation. | | Note lateral e' not accurated/t mod MAC.POSTOP: LV function is improved to borderline | | with LVEF=50%, previouslyseverely hypokinetic inferolateral segments are improved.Right | | Ventricle:Normal RV size. Normal wall thickness. Normal function. Insufficient TR | | toestimate RV pressures. TAPSE measured with CMQ technology was 21.9mm. FAC=45%.POSTOP: | | No change compared to preop.Atria:No obvious atrial enlargement. KEZIA normal size without | | SEC, masses, orthrombi. KEZIA inflow and outflow velocities WNL. IAS intact, no PFO | | detected.IAS in neutral position without significant deviation or abnormal motionPOSTOP: | | No change compared to preop.Mitral Valve:Trace mitral regurgitation with central jet. | | No mitral stenosis Leaflets ofnormal thickness with normal opening. No leaflet prolapse. | | Moderate MAC NoSAM. No LVOT turbulence.POSTOP: No change compared to preop.Aortic | | Valve:Trileaflet aortic valve. Normal leaflet motion. Slightly thickened leaflets.No | | aortic stenosis. No aortic insufficiency.POSTOP: No change compared to preop.Tricuspid | | Valve:Normal tricuspid leaflet thickness and opening. Trace tricuspidregurgitation. | | Hepatic vein forward flow S<D.POSTOP: No change compared to preop.Pulmonic Valve:Good | | visualization of pulmonic valve. Trace pulmonic regurgitation. Nopulmonic | | stenosis.POSTOP: No change compared to preop.RecommendationGreat Vessels:Measurements | | LVOT 2.0 cm Aortic Annulus 2.0 cm Sinuses of Valsalva 2.95 cmSTJ 2.4 cm Proximal | | ASCENDING Aorta 2.8 cmNormally-sized aortic root. Visible portions of ascending aorta | | normal.Sinotubular junction calcified. Descending aorta of normal | | diameter.Atherosclerosis in descending aorta is Grade II - thickening 1-4 mm | | withoutprotruding.. Pulmonary artery is normal.POSTOP: No change in visible portions of | | aorta compared to preop afterdecannulation.Other:Normal pericardium,no pericardial | | effusion. No pleural effusion.POSTOP: No pericardial or pleural effusion after sternal | | closure.Comments:1. Images acquired during positive pressureventilation under | | generalanesthesia.2. Preop rhythm: SR. Postop rhythm SR.3. Vasoactive medications during | | preop image acquistion: Phenylephrineinfusion titrated to maintain normal BP. | | Vasoactive medications duringpostop image acquistion: None.All pre and post-CPB CHIQUITA | | findings discussed with | | Eleanor.Signature | | ---- | | 04:54 | | PM Valves | | Mitral Valve Peak E-Wave: 60.6 cm/s Peak A-Wave: 66.8 cm/s | | Lateral e' Velocity: 4.42 cm/s Lateral E/e' | | Ratio:13.71 Aortic Valve Peak Velocity: 121 cm/s Mean Gradient: 3 mmHg | | Peak Gradient: 5.86 mmHg LVOT LVOT Diameter: 2 cmStructures Left Atrium LA Major:0.237 | | Left Ventricle PW Diastolic: 0.78 cm EF Calculated: 53.8%MiscellaneousAorta Ascending | | Aorta: 2.8 cm | |sternal closure. | | | |Procedure: | |1. CABG x 3 (EDWARDS-LAD, SVG-OM, SVG-PDA). | | | |Left Ventricle: | |Moderately depressed LV fxn with visually estimated LVEF 35%. Normal LV size | |and shape. Normal wall thickness. LV with global mild HK. Mid-basal region | |of Inferior/septal, Inferior and lateral castillo with severe HK. Diastolic | |function consistent with impaired relaxation. Note lateral e' not accurate | |d/t mod MAC. | |POSTOP: LV function is improved to borderline with LVEF=50%, previously | |severely hypokinetic inferolateral segments are improved. | | | |Right Ventricle: | |Normal RV size. Normal wall thickness. Normal function. Insufficient TR to | |estimate RV pressures. TAPSE measured with CMQ technology was 21.9mm. FAC= | |45%. | |POSTOP: No change compared to preop. | | | |Atria: | |No obvious atrial enlargement. KEZIA normal size without SEC, masses, or | |thrombi. KEZIA inflow and outflow velocities WNL. IAS intact, no PFO detected. | |IAS in neutral position without significant deviation or abnormal motion | |POSTOP: No change compared to preop. | | | |Mitral Valve: | |Trace mitral regurgitation with central jet. No mitral stenosis Leaflets of | |normal thickness with normal opening. No leaflet prolapse. Moderate MAC No | |ALEKSANDER. No LVOT turbulence. | |POSTOP: No change compared to preop. | | | |Aortic Valve: | |Trileaflet aortic valve. Normal leaflet motion. Slightly thickened leaflets. | |No aortic stenosis. No aortic insufficiency. | |POSTOP: No change compared to preop. | | | |Tricuspid Valve: | |Normal tricuspid leaflet thickness and opening. Trace tricuspid | |regurgitation. Hepatic vein forward flow S<D. | |POSTOP: No change compared to preop. | | | |Pulmonic Valve: | |Good visualization of pulmonic valve. Trace pulmonic regurgitation. No | |pulmonic stenosis. | |POSTOP: No change compared to preop. | |Recommendation | |Great Vessels: | |Measurements LVOT 2.0 cm Aortic Annulus 2.0 cm Sinuses of Valsalva 2.95 cm | |STJ 2.4 cm Proximal ASCENDING Aorta 2.8 cm | |Normally-sized aortic root. Visible portions of ascending aorta normal. | |Sinotubular junction calcified. Descending aorta of normal diameter. | |Atherosclerosis in descending aorta is Grade II - thickening 1-4 mm without | |protruding.. Pulmonary artery is normal. | |POSTOP: No change in visible portions of aorta compared to preop after | |decannulation. | | | |Other: | |Normal pericardium,no pericardial effusion. No pleural effusion. | |POSTOP: No pericardial or pleural effusion after sternal closure. | | | |Comments: | |1. Images acquired during positive pressureventilation under general | |anesthesia. | |2. Preop rhythm: SR. Postop rhythm SR. | |3. Vasoactive medications during preop image acquistion: Phenylephrine | |infusion titrated to maintain normal BP. Vasoactive medications during | |postop image acquistion: None. | | | |All pre and post-CPB CHIQUITA findings discussed with Dr. Webster. | | | |Signature | | | | Electronically signed by Sharad Richard MD(Interpreting physician) on | | 06/11/2018 04:54 PM | | | | | |Valves | | | | Mitral Valve | | | | Peak E-Wave: 60.6 cm/s | | Peak A-Wave: 66.8 cm/s | | | | Lateral e' Velocity: 4.42 cm/s | | Lateral E/e' Ratio:13.71 | | | | Aortic Valve | | | | Peak Velocity: 121 cm/s Mean Gradient: 3 mmHg | | Peak Gradient: 5.86 mmHg | | | | LVOT | | | | LVOT Diameter: 2 cm | | | |Structures | | | | Left Atrium | | | | LA Major:0.237 | | | | Left Ventricle | | | | PW Diastolic: 0.78 cm | | EF Calculated: 53.8% | | | |Miscellaneous | |Aorta | | | | Ascending Aorta: 2.8 cm | + + + +---------+ + + | Performing | Address | City/State/Zipcode | Phone Number | | Organization | | | | + +---------+ + + | [facility] | | | | + +---------+ + + Lactic Acid, Arterial, Surgery (06/11/2018 1:00 PM PDT) + + + + + + | Component | Value | Ref Range | Performed | Pathologist | | | | | At | Signature | + + + + + + | Lactate, | 1.1Comment: Performed | 0.5 - 1.6 | [facility] | | | Arterial | by [facility] [address], | mmol/L | [facility] | | | | [place] [address] | | HEART | | | |Performed by [facility] [address], [place] [address] | | MEDICAL | | | | | | CENTER | | | | | | LABORATORY | | | | | | [facility] | | + + + + + + + + | Specimen | + + | Blood specimen | | (specimen) | + + + + + + + | Performing | Address | City/State/Zipcode | Phone Number | | Organization | | | | + + + + + | [facility] | [address] [place] [address]. | [place] [address] | | | [facility] | | | | | LABORATORY [facility] | | | | + + + + + Chemistry Profile, A and V, Surgery (06/11/2018 1:00 PM PDT) + + + + + + | Component | Value | Ref Range | Performed | Pathologist | | | | | At | Signature | + + + + + + | pH, | 7.29 (L)Comment: | 7.37 - 7.47 | [facility] | | | Arterial | Results Delivered to | | [facility] | | | | [facility] | | HEART | | | |Results Delivered to [facility] | | MEDICAL | | | | | | CENTER | | | | | | LABORATORY | | | | | | [facility] | | + + + + + + | pCO2, | 52 (H) | 32 - 43 mmHg | [facility] | | | Arterial | | | [facility] | | | | | | HEART | | | | | | MEDICAL | | | | | | CENTER | | | | | | LABORATORY | | | | | | [facility] | | + + + + + + | pO2, | 309 (H) | 65 - 80 mmHg | [facility] | | | Arterial | | | [facility] | | | | | | HEART | | | | | | MEDICAL | | | | | | CENTER | | | | | | LABORATORY | | | | | | [facility] | | + + + + + + | Oxygen | 10.4 (L) | 15.0 - 23.0 % | [facility] | | | Content, | | | [facility] | | | Arterial | | | HEART | | | | | | MEDICAL | | | | | | CENTER | | | | | | LABORATORY | | | | | | [facility] | | + + + + + + | HGB O2 SAT | 97.9 | 92.0 - 99.9 % | [facility] | | | | | | [facility] | | | | | | HEART | | | | | | MEDICAL | | | | | | CENTER | | | | | | LABORATORY | | | | | | [facility] | | + + + + + + | HCO3, | 24.4 | 23.0 - 28.0 | [facility] | | | Arterial | | mmol/L | [facility] | | | | | | HEART | | | | | | MEDICAL | | | | | | CENTER | | | | | | LABORATORY | | | | | | [facility] | | + + + + + + | Base | -1.2 | -2.5 - 2.5 | [facility] | | | Excess, | | | [facility] | | | Arterial | | | HEART | | | | | | MEDICAL | | | | | | CENTER | | | | | | LABORATORY | | | | | | [facility] | | + + + + + + | Carboxyhemo | 0.5 (L) | 1.0 - 3.0 % | [facility] | | | globin | | | [facility] | | | | | | HEART | | | | | | MEDICAL | | | | | | CENTER | | | | | | LABORATORY | | | | | | [facility] | | + + + + + + | Methemoglob | 0.9 | 0.4 - 1.5 % | [facility] | | | in, Venous | | | [facility] | | | | | | HEART | | | | | | MEDICAL | | | | | | CENTER | | | | | | LABORATORY | | | | | | [facility] | | + + + + + + | pH, Venous | 7.25 (L) | 7.31 - 7.41 | [facility] | | | | | | [facility] | | | | | | HEART | | | | | | MEDICAL | | | | | | CENTER | | | | | | LABORATORY | | | | | | [facility] | | + + + + + + | pCO2, | 59 (H) | 41 - 51 mmHg | [facility] | | | Venous | | | [facility] | | | | | | HEART | | | | | | MEDICAL | | | | | | CENTER | | | | | | LABORATORY | | | | | | [facility] | | + + + + + + | pO2, Venous | 53 (H) | 37 - 43 mmHg | [facility] | | | | | | [facility] | | | | | | HEART | | | | | | MEDICAL | | | | | | CENTER | | | | | | LABORATORY | | | | | | [facility] | | + + + + + + | Hemoglobin | 7.0 (L) | 11.3 - 15.5 | [facility] | | | | | g/dL | [facility] | | | | | | HEART | | | | | | MEDICAL | | | | | | CENTER | | | | | | LABORATORY | | | | | | [facility] | | + + + + + + | O2SAT COOX | 78.6 (H) | 70.0 - 76.0 % | [facility] | | | VENOUS | | | [facility] | | | | | | HEART | | | | | | MEDICAL | | | | | | CENTER | | | | | | LABORATORY | | | | | | [facility] | | + + + + + + | Glucose | 172 (H) | 65 - 99 mg/dL | [facility] | | | | | | [facility] | | | | | | HEART | | | | | | MEDICAL | | | | | | CENTER | | | | | | LABORATORY | | | | | | [facility] | | + + + + + + | K | 7.8 (H) | 3.5 - 5.0 | [facility] | | | | | mmol/L | [facility] | | | | | | HEART | | | | | | MEDICAL | | | | | | CENTER | | | | | | LABORATORY | | | | | | [facility] | | + + + + + + | Calcium, | 3.93 (L) | 4.75 - 5.30 | [facility] | | | Ionized | | mg/dL | [facility] | | | | | | HEART | | | | | | MEDICAL | | | | | | CENTER | | | | | | LABORATORY | | | | | | [facility] | | + + + + + + | Calcium, pH | 3.71 (L)Comment: | 4.75 - 5.30 | [facility] | | | Normalized | Performed by [facility] [address] | mg/dL | [facility] | | | | [address] [place] | | HEART | | | | [address] | | MEDICAL | | | | | | CENTER | | | | | | LABORATORY | | | | | | [facility] | | + + + + + + + + | Specimen | + + | Blood specimen | | (specimen) | + + + + + + + | Performing | Address | City/State/Zipcode | Phone Number | | Organization | | | | + + + + + | [facility] | [address] | [place] [address] | | | [facility] | | | | | LABORATORY [facility] | | | | + + + + + Lactic Acid, Arterial, Surgery (06/11/2018 10:35 AM PDT) + + + + + + | Component | Value | Ref Range | Performed | Pathologist | | | | | At | Signature | + + + + + + | Lactate, | 0.9Comment: Performed | 0.5 - 1.6 | [facility] | | | Arterial | by [facility] [address], | mmol/L | SACRED | | | | [place] [address] | | HEART | | | |Performed by [facility] [address], [place] [address] | | MEDICAL | | | | | | CENTER | | | | | | LABORATORY | | | | | | [facility] | | + + + + + + + + | Specimen | + + | Blood specimen | | (specimen) | + + + + + + + | Performing | Address | City/State/Zipcode | Phone Number | | Organization | | | | + + + + + | [facility] | [address] | [place] [address] | | | [facility] | | | | | LABORATORY [facility] | | | | + + + + + Blood Gas , Arterial, Surgery (06/11/2018 10:35 AM PDT) + + + + + + | Component | Value | Ref Range | Performed | Pathologist | | | | | At | Signature | + + + + + + | pH, | 7.36 (L)Comment: | 7.37 - 7.47 | [facility] | | | Arterial | Results Delivered to | | [facility] | | | | [facility] | | HEART | | | |Results Delivered to [facility] | | MEDICAL | | | | | | CENTER | | | | | | LABORATORY | | | | | | [facility] | | + + + + + + | pCO2, | 44 (H) | 32 - 43 mmHg | [facility] | | | Arterial | | | [facility] | | | | | | HEART | | | | | | MEDICAL | | | | | | CENTER | | | | | | LABORATORY | | | | | | [facility] | | + + + + + + | pO2, | 456 (H) | 65 - 80 mmHg | [facility] | | | Arterial | | | [facility] | | | | | | HEART | | | | | | MEDICAL | | | | | | CENTER | | | | | | LABORATORY | | | | | | [facility] | | + + + + + + | Oxygen | 18.6 | 15.0 - 23.0 % | [facility] | | | Content, | | | [facility] | | | Arterial | | | HEART | | | | | | MEDICAL | | | | | | CENTER | | | | | | LABORATORY | | | | | | [facility] | | + + + + + + | HGB O2 SAT | 98.5 | 92.0 - 99.9 % | [facility] | | | | | | [facility] | | | | | | HEART | | | | | | MEDICAL | | | | | | CENTER | | | | | | LABORATORY | | | | | | [facility] | | + + + + + + | Hemoglobin | 12.6 | 11.3 - 15.5 | [facility] | | | | | g/dL | [facility] | | | | | | HEART | | | | | | MEDICAL | | | | | | CENTER | | | | | | LABORATORY | | | | | | [facility] | | + + + + + + | HCO3, | 24.3 | 23.0 - 28.0 | [facility] | | | Arterial | | mmol/L | [facility] | | | | | | HEART | | | | | | MEDICAL | | | | | | CENTER | | | | | | LABORATORY | | | | | | [facility] | | + + + + + + | Base | -0.4 | -2.5 - 2.5 | [facility] | | | Excess, | | | [facility] | | | Arterial | | | HEART | | | | | | MEDICAL | | | | | | CENTER | | | | | | LABORATORY | | | | | | [facility] | | + + + + + + | Carboxyhemo | 0.3 (L) | 1.0 - 3.0 % | [facility] | | | globin | | | [facility] | | | | | | HEART | | | | | | MEDICAL | | | | | | CENTER | | | | | | LABORATORY | | | | | | [facility] | | + + + + + + | Methemoglob | 0.7 | 0.4 - 1.5 % | [facility] | | | in, Venous | | | [facility] | | | | | | HEART | | | | | | MEDICAL | | | | | | CENTER | | | | | | LABORATORY | | | | | | [facility] | | + + + + + + | Calcium, | 4.69 (L) | 4.75 - 5.30 | [facility] | | | Ionized | | mg/dL | [facility] | | | | | | HEART | | | | | | MEDICAL | | | | | | CENTER | | | | | | LABORATORY | | | | | | [facility] | | + + + + + + | Calcium, pH | 4.60 (L) | 4.75 - 5.30 | [facility] | | | Normalized | | mg/dL | [facility] | | | | | | HEART | | | | | | MEDICAL | | | | | | CENTER | | | | | | LABORATORY | | | | | | [facility] | | + + + + + + | K | 4.7 | 3.5 - 5.0 | [facility] | | | | | mmol/L | [facility] | | | | | | HEART | | | | | | MEDICAL | | | | | | CENTER | | | | | | LABORATORY | | | | | | [facility] | | + + + + + + | Glucose | 108 (H) | 65 - 99 mg/dL | [facility] | | | | | | [facility] | | | | | | HEART | | | | | | MEDICAL | | | | | | CENTER | | | | | | LABORATORY | | | | | | [facility] | | + + + + + + | Na | 134 (L)Comment: | 135 - 145 | [facility] | | | | Performed by [facility] [address] | mmol/L | [facility] | | | | [address] [place] | | HEART | | | | [address] | | MEDICAL | | | | | | CENTER | | | | | | LABORATORY | | | | | | [facility] | | + + + + + + + + | Specimen | + + | Blood specimen | | (specimen) | + + + + + + + | Performing | Address | City/State/Zipcode | Phone Number | | Organization | | | | + + + + + | [facility] | [address] | [place] [address] | | | [facility] | | | | | LABORATORY [facility] | | | | + + + + + Type and Screen (06/11/2018 5:13 AM PDT) + + + + + + | Component | Value | Ref Range | Performed | Pathologist | | | | | At | Signature | + + + + + + | Antibody | Positive | | [facility] | | | Screen | | | [facility] | | | | | | [facility] | | | | | | [facility] | | | | | | B[facility] | | | | | | CENTER | | + + + + + + | ABO | O | | [facility] | | | | | | [facility] | | | | | | [facility] | | | | | | [facility] | | | | | | B[facility] | | | | | | CENTER | | + + + + + + | Rh Type | Negative | | [facility] | | | | | | [facility] | | | | | | [facility] | | | | | | [facility] | | | | | | [facility] | | | | | | CENTER | | + + + + + + + + | Specimen | + + | Blood specimen | | (specimen) | + + + + + | Narrative | Performed At | + + + | Specimen Expiration Date: [id number] | [facility] | | | [facility] | | | [facility] | | | [facility] | + + + + + + + + | Performing | Address | City/State/Zipcode | Phone Number | | Organization | | | | + + + + + | [facility] | [address] | [place] [address] | [phone] | | [facility] | | | | | [facility] | | | | | CENTER | | | | + + + + + POC Glucose (06/11/2018 3:12 AM PDT) + + + + + + | Component | Value | Ref Range | Performed | Pathologist | | | | | At | Signature | + + + + + + | Glucose, | 105 (H)Comment: | 65 - 99 mg/dL | [facility] | | | POC | Performed by [facility] [address] | | SACRED | | | | [address], [place] | | HEART | | | | [address] | | MEDICAL | | | | | | CENTER | | | | | | LABORATORY | | | | | | [place] | | + + + + + + + + | Specimen | + + | Blood specimen | | (specimen) | + + + + + + + | Performing | Address | City/State/Zipcode | Phone Number | | Organization | | | | + + + + + | [facility] | [address] | [place] [address] | | | [facility] | | | | | [place] | | | | + + + + + Protime INR (06/11/2018 3:12 AM PDT) + + + + + + | Component | Value | Ref Range | Performed | Pathologist | | | | | At | Signature | + + + + + + | Prothrombin | 12.9 | 12.0 - 14.2 sec | [facility] | | | Time | | | [facility] | | | | | | HEART | | | | | | MEDICAL | | | | | | CENTER | | | | | | LABORATORY | | | | | | [place] | | + + + + + + | INR | 1.0Comment: Usual oral | 0.9 - 1.1 | [facility] | | | | anticoagulant range: 2.0 | | [facility]CRED | | | | to 3.0 High level | | HEART | | | | oral anticoagulant | | MEDICAL | | | | range: 2.5 to | | CENTER | | | | 3.5Performed by [facility] [address] | | LABORATORY | | | | [place] | | [place] | | | | [id number] | | | | + + + + + + + + | Specimen | + + | Blood specimen | | (specimen) | + + + + + + + | Performing | Address | City/State/Zipcode | Phone Number | | Organization | | | | + + + + + | [facility] | [address] | [place] [address] | | | [facility] | | | | | [place] | | | | + + + + + CBC no Differential (06/11/2018 3:12 AM PDT) + + + + + + | Component | Value | Ref Range | Performed | Pathologist | | | | | At | Signature | + + + + + + | WBC | 7.3 | 3.8 - 11.0 K/uL | [facility] | | | | | | [facility] | | | | | | HEART | | | | | | MEDICAL | | | | | | CENTER | | | | | | LABORATORY | | | | | | [place] | | + + + + + + | RBC | 4.30 | 3.70 - 5.10 | [facility] | | | | | M/uL | [facility] | | | | | | HEART | | | | | | MEDICAL | | | | | | CENTER | | | | | | LABORATORY | | | | | | [facility] | | + + + + + + | Hemoglobin | 12.6 | 11.3 - 15.5 | [facility] | | | | | g/dL | [facility] | | | | | | HEART | | | | | | MEDICAL | | | | | | CENTER | | | | | | LABORATORY | | | | | | [facility] | | + + + + + + | Hct | 37.4 | 34.0 - 46.0 % | [facility] | | | | | | [facility]CR[facility] | | | | | | HEART | | | | | | MEDICAL | | | | | | CENTER | | | | | | LABORATORY | | | | | | [place] | | + + + + + + | MCV | 87.0 | 80.0 - 100.0 fL | [facility] | | | | | | [facility]CR[facility] | | | | | | HEART | | | | | | MEDICAL | | | | | | CENTER | | | | | | LABORATORY | | | | | | [facility] | | + + + + + + | MCH | 29.4 | 27.0 - 34.0 pg | [facility] | | | | | | [facility]CR[facility] | | | | | | HEART | | | | | | MEDICAL | | | | | | CENTER | | | | | | LABORATORY | | | | | | [facility] | | + + + + + + | MCHC | 33.8 | 32.0 - 35.5 | [facility] | | | | | g/dL | [facility] | | | | | | HEART | | | | | | MEDICAL | | | | | | CENTER | | | | | | LABORATORY | | | | | | [facility] | | + + + + + + | RDW-CV | 15.1 | 11.0 - 15.5 % | [facility] | | | | | | [facility] | | | | | | HEART | | | | | | MEDICAL | | | | | | CENTER | | | | | | LABORATORY | | | | | | [facility] | | + + + + + + | Platelet | 349 | 150 - 400 K/uL | [facility] | | | Count | | | [facility] | | | | | | HEART | | | | | | MEDICAL | | | | | | CENTER | | | | | | LABORATORY | | | | | | [facility] | | + + + + + + | MPV | 7.0 (L)Comment: | 7.5 - 11.2 fL | [facility] | | | | Performed by [facility] [address] | | SACRED | | | | [place] | | HEART | | | | [address] | | MEDICAL | | | | | | CENTER | | | | | | LABORATORY | | | | | | [facility] | | + + + + + + + + | Specimen | + + | Blood specimen | | (specimen) | + + + + + + + | Performing | Address | City/State/Zipcode | Phone Number | | Organization | | | | + + + + + | [facility] | [address] | [place] [address] | | | [facility] | | | | | LABORATORY [facility] | | | | + + + + + Basic Metabolic Panel (06/11/2018 3:12 AM PDT) + + + + + + | Component | Value | Ref Range | Performed | Pathologist | | | | | At | Signature | + + + + + + | Na | 139 | 135 - 145 | [facility] | | | | | mmol/L | [facility] | | | | | | HEART | | | | | | MEDICAL | | | | | | CENTER | | | | | | LABORATORY | | | | | | [facility] | | + + + + + + | K | 4.3 | 3.5 - 5.0 | [facility] | | | | | mmol/L | [facility] | | | | | | HEART | | | | | | MEDICAL | | | | | | CENTER | | | | | | LABORATORY | | | | | | [facility] | | + + + + + + | Cl | 106 | 99 - 109 mmol/L | [facility] | | | | | | [facility]CR[facility] | | | | | | HEART | | | | | | MEDICAL | | | | | | CENTER | | | | | | LABORATORY | | | | | | [facility] | | + + + + + + | CO2 | 24 | 21 - 28 mmol/L | [facility] | | | | | | [facility]CR[facility] | | | | | | HEART | | | | | | MEDICAL | | | | | | CENTER | | | | | | LABORATORY | | | | | | [facility] | | + + + + + + | Anion Gap | 9 | 5 - 16 mmol/L | [facility] | | | | | | [facility]CR[facility] | | | | | | HEART | | | | | | MEDICAL | | | | | | CENTER | | | | | | LABORATORY | | | | | | [facility] | | + + + + + + | Calcium | 9.0 | 8.5 - 10.2 | [facility] | | | | | mg/dL | [facility] | | | | | | HEART | | | | | | MEDICAL | | | | | | CENTER | | | | | | LABORATORY | | | | | | [facility] | | + + + + + + | BUN | 27 (H) | 8 - 25 mg/dL | [facility] | | | | | | [facility] | | | | | | HEART | | | | | | MEDICAL | | | | | | CENTER | | | | | | LABORATORY | | | | | | [facility] | | + + + + + + | Creatinine | 0.88 | 0.50 - 1.00 | [facility] | | | | | mg/dL | [facility]CRED | | | | | | HEART | | | | | | MEDICAL | | | | | | CENTER | | | | | | LABORATORY | | | | | | [facility] | | + + + + + + | Glucose | 103 (H) | 65 - 99 mg/dL | [facility] | | | | | | [facility]CR[facility] | | | | | | HEART | | | | | | MEDICAL | | | | | | CENTER | | | | | | LABORATORY | | | | | | [facility] | | + + + + + + | Estimated | 70 (L)Comment: eGFR<60 | >=90 | [facility] | | | GFR | consistent with impaired | mL/min/1.73m2 | [facility] | | | | kidney | | HEART | | | | function.Performed by | | MEDICAL | | | | [facility] [address], | | CENTER | | | | [place] [address] | | LABORATORY | | | | | | [facility] | | + + + + + + + + | Specimen | + + | Blood specimen | | (specimen) | + + + + + + + | Performing | Address | City/State/Zipcode | Phone Number | | Organization | | | | + + + + + | [facility] | [address] | [place] [address] | | | [facility] | | | | | LABORATORY [facility] | | | | + + + + + PTT (06/11/2018 3:12 AM PDT) + + + + + + | Component | Value | Ref Range | Performed | Pathologist | | | | | At | Signature | + + + + + + | aPTT | 78 (H)Comment: Deep | 26 - 36 sec | [facility] | | | | venous thrombosis or | | [facility] | | | | pulmonary embolism | | HEART | | | | therapeutic heparin | | MEDICAL | | | | levels of 0.3 to 0.7 | | CENTER | | | | Units/mL anti FactorXa | | LABORATORY | | | | levels usually | | [facility] | | | | correspond to an aPTT of | | | | | | 65 to 99 seconds. Acute | | | | | | cardiac syndrome | | | | | | therapeutic range based | | | | | | on heparin levels of 0.2 | | | | | | to 0.5 usually | | | | | | correspond to an aPTT of | | | | | | 57 to 76 seconds. | | | | | | Pediatric guidelines | | | | | | suggested heparin levels | | | | | | of 0.35 to 0.7 usually | | | | | | correspond to an aPTT of | | | | | | 69 to 99 | | | | | | seconds.Performed by [facility] | | | | | | [address], | | | | | | [place] [address] | | | | + + + + + + + + | Specimen | + + | Blood specimen | | (specimen) | + + + + + + + | Performing | Address | City/State/Zipcode | Phone Number | | Organization | | | | + + + + + | [facility] | [address] | [place] [address] | | | [facility] | | | | | LABORATORY [facility] | | | | + + + + + MRSA NAAT (06/11/2018 12:10 AM PDT) + + + + +- + | Component | Value | Ref Range | Performed | Pathologist | | | | | At | Signature | + + + + +- + | MRSA DNA | Negative | Negative | [facility] | | [facility] | | | | | | HEART | | | | | | MEDICAL | | | | | | CENTER | | | | | | LABORATORY | | | | | | [facility] | | + + + + +- + | Specimen | NasalComment: Performed | | [facility] | | | Source | by [facility] [address], | | SACRED | | | | [place] [address] | | HEART | | | |Performed by [facility] [address], [place] [address] | | MEDICAL | | | | | | CENTER | | | | | | LABORATORY | | | | | | [facility] | | + + + + +- + + + | Specimen | + + | Soft tissue sample | | (specimen) - Both | | anterior nares (body | | structure) | + + + + + + + | Performing | Address | City/State/Zipcode | Phone Number | | Organization | | | | + + + + + | [facility] | [address] | [place] [address] | | | [facility] | | | | | LABORATORY [facility] | | | | + + + + + Urinalysis with Microscopic with Culture if Indicated (06/11/2018 12:00 AM PDT) + + + + + + | Component | Value | Ref Range | Performed | Pathologist | | | | | At | Signature | + + + + + + | CULTURE | No | | [facility] | | | SENT | | | [facility] | | | | | | HEART | | | | | | MEDICAL | | | | | | CENTER | | | | | | LABORATORY | | | | | | [facility] | | + + + + + + | Color | Straw | | [facility] | | | | [facility] | | | | | | HEART | | | | | | MEDICAL | | | | | | CENTER | | | | | | LABORATORY | | | | | | [facility] | | + + + + + + | Clarity | Clear | | [facility] | | | | [facility] | | | | | | HE[facility] | | | | | | MEDICAL | | | | | | CENTER | | | | | | LABORATORY | | | | | | [facility] | | + + + + + + | Glucose, | Negative | Negative | [facility] | | | Urine | | | SACRED | | | | | | HEART | | | | | | MEDICAL | | | | | | CENTER | | | | | | LABORATORY | | | | | | [facility] | | + + + + + + | Ketones, | Negative | Negative | [facility] | | | Urine | | | [facility]CR[facility] | | | | | | HEART | | | | | | MEDICAL | | | | | | CENTER | | | | | | LABORATORY | | | | | | [facility] | | + + + + + + | Bilirubin, | Negative | Negative | [facility] | | | Urine | | | [facility]CRED | | | | | | HEART | | | | | | MEDICAL | | | | | | CENTER | | | | | | LABORATORY | | | | | | C[facility] | | + + + + + + | Urobilinoge | <2.0 | <2.0 mg/dL | [facility] | | | n, Urine | | | SACRED | | | | | | HEART | | | | | | MEDICAL | | | | | | CENTER | | | | | | LABORATORY | | | | | | [facility] | | + + + + + + | Specific | 1.010 | 1.001 - 1.030 | [facility] | | | [place] | | | SACRED | | | | | | HEART | | | | | | MEDICAL | | | | | | CENTER | | | | | | LABORATORY | | | | | | C[facility] | | + + + + + + | pH, Urine | 6.0 | 5.0 - 7.5 | [facility] | | | | | | [facility]CR[facility] | | | | | | HEART | | | | | | MEDICAL | | | | | | CENTER | | | | | | LABORATORY | | | | | | [facility] | | + + + + + + | Protein, | Negative | Negative | [facility] | | | Urine | | | SACRED | | | | | | HEART | | | | | | MEDICAL | | | | | | CENTER | | | | | | LABORATORY | | | | | | [facility] | | + + + + + + | Nitrite, | Negative | Negative | [facility] | | | Urine | | | SACRED | | | | | | HEART | | | | | | MEDICAL | | | | | | CENTER | | | | | | LABORATORY | | | | | | C[facility] | | + + + + + + | Blood, | Small (A) | Negative | [facility] | | | Urine | | | SACRED | | | | | | HEART | | | | | | MEDICAL | | | | | | CENTER | | | | | | LABORATORY | | | | | | CERN[facility] | | + + + + + + | Leukocyte | Negative | Negative | [facility] | | | Esterase, | | | SACRED | | | Urine | | | HEART | | | | | | MEDICAL | | | | | | CENTER | | | | | | LABORATORY | | | | | | CERNER | | + + + + + + | SQUAMOUS | Few | | [facility] | | | EPITHELIAL | | | SACRED | | | UA | | | HEART | | | | | | MEDICAL | | | | | | CENTER | | | | | | LABORATORY | | | | | | C[facility]ER | | + + + + + + | WBC UA | <1 | 0 - 5 /hpf | [facility] | | | | | | [facility] | | | | | | HEART | | | | | | MEDICAL | | | | | | CENTER | | | | | | LABORATORY | | | | | | [facility]ERN[facility] | | + + + + + + | RBC UA | 1 | 0 - 5 | [facility] | | | | | | [facility]CR[facility] | | | | | | HEART | | | | | | MEDICAL | | | | | | CENTER | | | | | | LABORATORY | | | | | | CERN[facility] | | + + + + + + | BACTERIA UA | None Seen | | [facility] | | | | | | [facility]CR[facility] | | | | | | HEART | | | | | | MEDICAL | | | | | | CENTER | | | | | | LABORATORY | | | | | | [facility] | | + + + + + + | AMORPHOUS | None Present | | [facility] | | | CRYSTALS | | | SACRED | | | | | | HEART | | | | | | MEDICAL | | | | | | CENTER | | | | | | LABORATORY | | | | | | C[facility] | | + + + + + + | MUCUS UA | Not Present | | [facility] | | | | | | [facility]CR[facility] | | | | | | HEART | | | | | | MEDICAL | | | | | | CENTER | | | | | | LABORATORY | | | | | | [facility] | | + + + + + + | URINE | Clean catchComment: | | [facility] | | | SOURCE | Performed by [facility] [address] | | SACRED | | | | [address] [place] | | HEART | | | | [address] | | MEDICAL | | | | | | CENTER | | | | | | LABORATORY | | | | | | CERNER | | + + + + + + + + | Specimen | + + | Urine specimen | | (specimen) - Urine | | specimen obtained by | | clean catch | | procedure (specimen) | + + + + + + + | Performing | Address | City/State/Zipcode | Phone Number | | Organization | | | | + + + + + | [facility]OR[facility] | [address] | [place] [address] | | | [facility] | | | | | LABORATORY [facility] | | | | + + + + + POC Glucose (06/10/2018 10:54 PM PDT) + + + + + + | Component | Value | Ref Range | Performed | Pathologist | | | | | At | Signature | + + + + + + | Glucose, | 129 (H)Comment: | 65 - 99 mg/dL | [facility] | | | POC | Performed by [facility] [address] | | SACRED | | | | [address], [place] | | HEART | | | | [address] | | MEDICAL | | | | | | CENTER | | | | | | LABORATORY | | | | | | CERNER | | + + + + + + + + | Specimen | + + | Blood specimen | | (specimen) | + + + + + + + | Performing | Address | City/State/Zipcode | Phone Number | | Organization | | | | + + + + + | [facility] | [address] | [place] [address] | | | [facility] | | | | | LABORATORY [place] | | | | + + + + + PTT (06/10/2018 8:03 PM PDT) + + + + + + | Component | Value | Ref Range | Performed | Pathologist | | | | | At | Signature | + + + + + + | aPTT | 38 (H)Comment: Deep | 26 - 36 sec | [facility] | | | | venous thrombosis or | | SACRED | | | | pulmonary embolism | | HEART | | | | therapeutic heparin | | MEDICAL | | | | levels of 0.3 to 0.7 | | CENTER | | | | Units/mL anti FactorXa | | LABORATORY | | | | levels usually | | [facility] | | | | correspond to an aPTT of | | | | | | 65 to 99 seconds. Acute | | | | | | cardiac syndrome | | | | | | therapeutic range based | | | | | | on heparin levels of 0.2 | | | | | | to 0.5 usually | | | | | | correspond to an aPTT of | | | | | | 57 to 76 seconds. | | | | | | Pediatric guidelines | | | | | | suggested heparin levels | | | | | | of 0.35 to 0.7 usually | | | | | | correspond to an aPTT of | | | | | | 69 to 99 | | | | | | seconds.Performed by [facility] | | | | | | [address], | | | | | | [place] [address] | | | | + + + + + + + + | Specimen | + + | Blood specimen | | (specimen) | + + + + + + + | Performing | Address | City/State/Zipcode | Phone Number | | Organization | | | | + + + + + | [facility] | [address] | [place] [address] | | | [facility] | | | | | LABORATORY [place] | | | | + + + + + Basic Metabolic Panel (06/10/2018 5:22 PM PDT) + + + + + + | Component | Value | Ref Range | Performed | Pathologist | | | | | At | Signature | + + + + + + | Na | 139 | 135 - 145 | [facility] | | | | | mmol/L | SACRED | | | | | | HEART | | | | | | MEDICAL | | | | | | CENTER | | | | | | LABORATORY | | | | | | [facility]ERNER | | + + + + + + | K | 4.5 | 3.5 - 5.0 | [facility] | | | | | mmol/L | SACRED | | | | | | HEART | | | | | | MEDICAL | | | | | | CENTER | | | | | | LABORATORY | | | | | | [facility] | | + + + + + + | Cl | 106 | 99 - 109 mmol/L | [facility] | | | | | | SACRED | | | | | | HEART | | | | | | MEDICAL | | | | | | CENTER | | | | | | LABORATORY | | | | | | C[facility] | | + + + + + + | CO2 | 25 | 21 - 28 mmol/L | [facility] | | | | | | SACRED | | | | | | HEART | | | | | | MEDICAL | | | | | | CENTER | | | | | | LABORATORY | | | | | | [facility] | | + + + + + + | Anion Gap | 8 | 5 - 16 mmol/L | [facility] | | | | | | SACRED | | | | | | HEART | | | | | | MEDICAL | | | | | | CENTER | | | | | | LABORATORY | | | | | | [facility] | | + + + + + + | Calcium | 8.6 | 8.5 - 10.2 | [facility] | | | | | mg/dL | SACRED | | | | | | HEART | | | | | | MEDICAL | | | | | | CENTER | | | | | | LABORATORY | | | | | | CERN[facility] | | + + + + + + | BUN | 25 | 8 - 25 mg/dL | [facility] | | | | | | SACRED | | | | | | HEART | | | | | | MEDICAL | | | | | | CENTER | | | | | | LABORATORY | | | | | | [facility] | | + + + + + + | Creatinine | 0.91 | 0.50 - 1.00 | [facility] | | | | | mg/dL | SACRED | | | | | | HEART | | | | | | MEDICAL | | | | | | CENTER | | | | | | LABORATORY | | | | | | CERNER | | + + + + + + | Glucose | 78 | 65 - 99 mg/dL | [facility] | | | | | | SACRED | | | | | | HEART | | | | | | MEDICAL | | | | | | CENTER | | | | | | LABORATORY | | | | | | CERN[facility] | | + + + + + + | Estimated | 67 (L)Comment: eGFR<60 | >=90 | [facility] | | | GFR | consistent with impaired | mL/min/1.73m2 | [facility]CRED | | | | kidney | | HEART | | | | function.Performed by | | MEDICAL | | | | [facility] [address], | | CENTER | | | | [place] [address] | | LABORATORY | | | | | | CERNER | | + + + + + + + + | Specimen | + + | Blood specimen | | (specimen) | + + + + + + + | Performing | Address | City/State/Zipcode | Phone Number | | Organization | | | | + + + + + | [facility] | [address] | [place] [address] | | | [facility] | | | | | LABORATORY CERN[facility] | | | | + + + + + Protime INR (06/10/2018 5:22 PM PDT) + + + + + + | Component | Value | Ref Range | Performed | Pathologist | | | | | At | Signature | + + + + + + | Prothrombin | 12.5 | 12.0 - 14.2 sec | [facility] | | | Time | | | SACRED | | | | | | HEART | | | | | | MEDICAL | | | | | | CENTER | | | | | | LABORATORY | | | | | | C[facility] | | + + + + + + | INR | 0.9Comment: Usual oral | 0.9 - 1.1 | [facility] | | | | anticoagulant range: 2.0 | | SACRED | | | | to 3.0 High level | | HEART | | | | oral anticoagulant | | MEDICAL | | | | range: 2.5 to | | CENTER | | | | 3.5Performed by [facility] [address] | | LABORATORY | | | | [address], [place] | | [place] | | | | [address] | | | | + + + + + + + + | Specimen | + + | Blood specimen | | (specimen) | + + + + + + + | Performing | Address | City/State/Zipcode | Phone Number | | Organization | | | | + + + + + | [facility] | [address] | [place] [address] | | | [facility] | | | | | LABORATORY [facility] | | | | + + + + + POC Glucose (06/10/2018 4:23 PM PDT) + + + + + + | Component | Value | Ref Range | Performed | Pathologist | | | | | At | Signature | + + + + + + | Glucose, | 113 (H)Comment: | 65 - 99 mg/dL | [facility] | | | POC | Performed by [facility] [address] | | SACRED | | | | [address] [place] | | HEART | | | | [address] | | MEDICAL | | | | | | CENTER | | | | | | LABORATORY | | | | | | CERNER | | + + + + + + + + | Specimen | + + | Blood specimen | | (specimen) | + + + + + + + | Performing | Address | City/State/Zipcode | Phone Number | | Organization | | | | + + + + + | [facility] | [address] | [place] [address] | | | [facility] | | | | | LABORATORY [facility] | | | | + + + + + Hepatitis Panel, Acute (06/10/2018 2:09 PM PDT) + + + + + + | Component | Value | Ref Range | Performed | Pathologist | | | | | At | Signature | + + + + + + | HEP A IGM | Negative | Negative | [facility] | | | | | | SACRED | | | | | | HEART | | | | | | MEDICAL | | | | | | CENTER | | | | | | LABORATORY | | | | | | CERNER | | + + + + + + | Hepatitis B | Negative | Negative | [facility] | | | Surface Ag | | | SACRED | | | | | | HEART | | | | | | MEDICAL | | | | | | CENTER | | | | | | LABORATORY | | | | | | CERNER | | + + + + + + | HEP B CORE | Negative | Negative | [facility] | | | IgM | | | SACRED | | | | | | HEART | | | | | | MEDICAL | | | | | | CENTER | | | | | | LABORATORY | | | | | | CERNER | | + + + + + + | Hepatitis C | >11.0 (H)Comment: | 0.0 - 0.9 | [facility] | | | Ab | | | SACRED | | | | | | HEART | | | | Negative: < 0.8 | | MEDICAL | | | | | | CENTER | | | | | | LABORATORY | | | | Indeterminate: 0.8 - 0.9 | | [facility] | | | | | | | | | | | | | | | | Positive: > 0.9 | | | | | | [facility] recommends | | | | | | that a positive HCV | | | | | | antibody result be | | | | | | followed up with a HCV | | | | | | Nucleic Acid | | | | | | Amplification test | | | | | | ([id number]).Performed At: | | | | | | [place] [address] | | | | | | [facility] [address] | | | | | | [place], [place] | | | | | | [phone] | | | | | | [place] Ph:[phone] | | | | + + + + + + + + | Specimen | + + | Blood specimen | | (specimen) | + + + + + + + | Performing | Address | City/State/Zipcode | Phone Number | | Organization | | | | + + + + + | [facility] | [address] | [place] [address] | | | [facility] | | | | | LABORATORY [facility] | | | | + + + + + PTT (06/10/2018 2:09 PM PDT) + + + + + + | Component | Value | Ref Range | Performed | Pathologist | | | | | At | Signature | + + + + + + | aPTT | 30Comment: Deep venous | 26 - 36 sec | [facility] | | | | thrombosis or pulmonary | | SACRED | | | | embolism therapeutic | | HEART | | | | heparin levels of 0.3 to | | MEDICAL | | | | 0.7 Units/mL anti | | CENTER | | | | FactorXa levels usually | | LABORATORY | | | | correspond to an aPTT of | | [facility] | | | | 65 to 99 seconds. Acute | | | | | | cardiac syndrome | | | | | | therapeutic range based | | | | | | on heparin levels of 0.2 | | | | | | to 0.5 usually | | | | | | correspond to an aPTT of | | | | | | 57 to 76 seconds. | | | | | | Pediatric guidelines | | | | | | suggested heparin levels | | | | | | of 0.35 to 0.7 usually | | | | | | correspond to an aPTT of | | | | | | 69 to 99 | | | | | | seconds.Performed by [facility] | | | | | | [address], | | | | | | [place] [address] | | | | + + + + + + + + | Specimen | + + | Blood specimen | | (specimen) | + + + + + + + | Performing | Address | City/State/Zipcode | Phone Number | | Organization | | | | + + + + + | [facility] | [address] | [place] [address] | | | [facility] | | | | | LABORATORY [place] | | | | + + + + + ECG 12 lead (06/10/2018 12:10 PM PDT) + + | Specimen | + + | | + + + + + | Narrative | Performed At | + + + | HEART RATE:71 | [facility] | | bpmRR Interval:845 msAtrial Rate:71 msP-R Interval:148 msP | [facility] | | Duration:152 msP Horizontal Doran:32 degP Front Doran:62 degQ Onset:512 | | | msQRSD Interval:110 msQT Interval:416 msQTcB:453 msQTcF:440 msQRS | | | Horizontal Doran:199 degQRS Doran:-83 degI-40 Horizontal Doran:77 degI-40 | | | Front Doran:-74 degT-40 Horizontal Doran:242 degT-40 Front Doran:216 | | | degT Horizontal Doran:84 degT Wave Doran:69 degS-T Horizontal Doran:97 | | | degS-T Front Doran:107 degSeverity:- ABNORMAL ECG -INTERP:SINUS | | | RHYTHMINTERP:NONSPECIFIC IVCD WITH LADINTERP:INFERIOR INFARCT, | | | OLDElectronically signed by: ELIZABETH CAMPBELL 06-12-2018 11:24:19 | | |QTcB:453 ms | | |QTcF:440 ms | | |QRS Horizontal Doran:199 deg | | |QRS Doran:-83 deg | | |I-40 Horizontal Doran:77 deg | | |I-40 Front Doran:-74 deg | | |T-40 Horizontal Doran:242 deg | | |T-40 Front Doran:216 deg | | |T Horizontal Doran:84 deg | | |T Wave Doran:69 deg | | |S-T Horizontal Doran:97 deg | | |S-T Front Doran:107 deg | | |Severity:- ABNORMAL ECG - | | |INTERP:SINUS RHYTHM | | |INTERP:NONSPECIFIC IVCD WITH LAD | | |INTERP:INFERIOR INFARCT, OLD | | |Electronically signed by: ELIZABETH CAMPBELL 06-12-2018 11:24:19 | | + + + + + + + + | Performing | Address | City/State/Zipcode | Phone Number | | Organization | | | | + + + + + | [facility] | [address] | [place] [address] | [phone] | + + + + + Pulmonary function test full PFT (06/10/2018 11:56 AM PDT) + + + | Narrative | Performed At | + + + | Ladarius Soto | | | MD Zuri 06/10/2018 11:57Spirometry is normal. There is NO | | | significant bronchodilator response based on ATS criteria. This does | | | not preclude clinical use. Lung volumes are normal. Diffusion | | | capacity is normal. | | | | | |Lung volumes are normal. | | | | | |Diffusion capacity is normal. | | | | | | | | + + + PTT (06/10/2018 6:55 AM PDT) + + + + + + | Component | Value | Ref Range | Performed | Pathologist | | | | | At | Signature | + + + + + + | aPTT | 70 (H)Comment: Deep | 26 - 36 sec | [facility] | | | | venous thrombosis or | | SACRED | | | | pulmonary embolism | | HEART | | | | therapeutic heparin | | MEDICAL | | | | levels of 0.3 to 0.7 | | CENTER | | | | Units/mL anti FactorXa | | LABORATORY | | | | levels usually | | [facility] | | | | correspond to an aPTT of | | | | | | 65 to 99 seconds. Acute | | | | | | cardiac syndrome | | | | | | therapeutic range based | | | | | | on heparin levels of 0.2 | | | | | | to 0.5 usually | | | | | | correspond to an aPTT of | | | | | | 57 to 76 seconds. | | | | | | Pediatric guidelines | | | | | | suggested heparin levels | | | | | | of 0.35 to 0.7 usually | | | | | | correspond to an aPTT of | | | | | | 69 to 99 | | | | | | seconds.Performed by [facility] | | | | | | [address], | | | | | | [place] [address] | | | | + + + + + + + + | Specimen | + + | Blood specimen | | (specimen) | + + + + + + + | Performing | Address | City/State/Zipcode | Phone Number | | Organization | | | | + + + + + | [facility] | [address] | [place] [address] | | | [facility] | | | | | LABORATORY [facility] | | | | + + + + + Hepatitis Panel, Chronic (06/10/2018 6:55 AM PDT) + + + + + + | Component | Value | Ref Range | Performed | Pathologist | | | | | At | Signature | + + + + + + | Hepatitis B | Negative | Negative | [facility] | | | Surface Ag | | | SACRED | | | | | | HEART | | | | | | MEDICAL | | | | | | CENTER | | | | | | LABORATORY | | | | | | C[facility] | | + + + + + + | Hepatitis B | Positive (A) | Negative | [facility] | | | Core Ab, | | | SACRED | | | Total | | | HEART | | | | | | MEDICAL | | | | | | CENTER | | | | | | LABORATORY | | | | | | [facility] | | + + + + + + | Hepatitis C | >11.0 (H)Comment: | 0.0 - 0.9 | [facility] | | | Ab | | | SACRED | | | | | | HEART | | | | Negative: < 0.8 | | MEDICAL | | | | | | CENTER | | | | | | LABORATORY | | | | Indeterminate: 0.8 - 0.9 | | [facility] | | | | | | | | | | | | | | | | Positive: > 0.9 | | | | | | [facility] recommends | | | | | | that a positive HCV | | | | | | antibody result be | | | | | | followed up with a HCV | | | | | | Nucleic Acid | | | | | | Amplification test | | | | | | ([id number]).Performed At: | | | | | | [facility] [id number] | | | | | | [address] | | | | | | [place], [place] | | | | | | [phone] [place] | | | | | | L MD Ph:[phone] | | | | + + + + + + | HEP A TOTAL | Positive (A) | Negative | [facility] | | | AB | | | SACRED | | | | | | HEART | | | | | | MEDICAL | | | | | | CENTER | | | | | | LABORATORY | | | | | | C[facility] | | + + + + + + | Hepatitis B | ReactiveComment: | | [facility] | | | Surface | Non | | SACRED | | | Antibody | Reactive: Inconsistent | | HEART | | | Qual | with immunity, | | MEDICAL | | | | | | CENTER | | | | less than 10 | | LABORATORY | | | | mIU/mL | | [facility] | | | | Reactive: | | | | | | Consistent with | | | | | | immunity, | | | | | | | | | | | | greater than 9.9 | | | | | | mIU/mL | | | | + + + + + + + + | Specimen | + + | Blood specimen | | (specimen) | + + + + + + + | Performing | Address | City/State/Zipcode | Phone Number | | Organization | | | | + + + + + | [facility] | [address] [place] [address]. | [place] [address] | | | [facility] | | | | | [place] | | | | + + + + + Hemoglobin A1C (06/10/2018 6:55 AM PDT) + + + + + + | Component | Value | Ref Range | Performed | Pathologist | | | | | At | Signature | + + + + + + | Hemoglobin | 5.5Comment: The ADA | 4.3 - 6.1 % | [facility] | | | A1c | recommends A1C values of | | SACRED | | | | less than 7% as the | | HEART | | | | goal for diabetic | | MEDICAL | | | | therapy. | | CENTER | | | | | | LABORATORY | | | | | | [facility] | | + + + + + + | Estimated | 111Comment: The ADA | 65 - 154 mg/dL | [facility] | | | Average | considers an Estimated | | SACRED | | | Glucose | Average Glucose (eAG) | | HEART | | | | result of LT 154 mg/dL | | MEDICAL | | | | to be the goal of | | CENTER | | | | diabetic therapy. | | LABORATORY | | | | Estimated Average | | [facility] | | | | Glucose is calculated | | | | | | from hemoglobin A1c by | | | | | | use of the ADA | | | | | | recommended | | | | | | formula.Performed by [facility] | | | | | | [address], | | | | | | [place] [address] | | | | + + + + + + + + | Specimen | + + | Blood specimen | | (specimen) | + + + + + + + | Performing | Address | City/State/Zipcode | Phone Number | | Organization | | | | + + + + + | [facility] | [address] | [place] [address] | | | [facility] | | | | | [place] | | | | + + + + + ABO Rh (06/10/2018 6:49 AM PDT) + + + + + + | Component | Value | Ref Range | Performed | Pathologist | | | | | At | Signature | + + + + + + | ABO | O | | [facility] | | | | | | [facility] | | | | | | [facility] | | | | | | [facility] | | | | | | [facility] | | | | | | [facility] | | + + + + + + | Rh Type | Negative | | [facility] | | | | | | [facility] | | | | | | [facility] | | | | | | [facility] | | | | | | [facility] | | | | | | [facility]ENTER | | + + + + + + + + | Specimen | + + | | + + + + + | Narrative | Performed At | + + + | Specimen Expiration Date: [id number] | [facility] | | | [facility] | | | [facility] | | | [facility] | + + + + + + + + | Performing | Address | City/State/Zipcode | Phone Number | | Organization | | | | + + + + + | [facility] | [address] | [place] [address] | [phone] | | [facility] | | | | | [facility] | | | | | [facility] | | | | + + + + + Antibody Screen (06/10/2018 6:49 AM PDT) + + + + + + | Component | Value | Ref Range | Performed | Pathologist | | | | | At | Signature | + + + + + + | Antibody | Positive | | [facility] | | | Screen | | | [facility] | | | | | | [facility] | | | | | | [facility] | | | | | | [facility] | | | | | | [facility] | | + + + + + + + + | Specimen | + + | | + + + + + | Narrative | Performed At | + + + | Specimen Expiration Date: [id number] | [facility] | | | [facility] | | [facility] | + + + + + + + + | Performing | Address | City/State/Zipcode | Phone Number | | Organization | | | | + + + + + | [facility] | [address] | [place] [address] | [phone] | | [facility] | | | | | [facility] | | | | [facility] | | | | + + + + + Antibody identification (06/10/2018 12:46 AM PDT) + + + + + + | Component | Value | Ref Range | Performed | Pathologist | | | | | At | Signature | + + + + + + | Antibody ID | Anti-Jka | | REFERENCE | | | | | | [facility] | | [facility] | [facility] | [facility] | | | | | [facility] | | + + + + + + + + | Specimen | + + | | + + + + + | Narrative | Performed At | + + + | Specimen Expiration Date: [id number] | [facility] | | | [facility] | | [facility] | + + + + + + + + | Performing | Address | City/State/Zipcode | Phone Number | | Organization | | | | + + + + + | [facility] | [address] | [place] [address] | [phone] | | [facility] | | | | | [facility] | | | | [facility] | | | | + + + + + Type and Screen (06/10/2018 12:46 AM PDT) + + + + + + | Component | Value | Ref Range | Performed | Pathologist | | | | | At | Signature | + + + + + + | ABO | O | | REFERENCE | | | | | | [facility] | | | [facility] | [facility] | | + + + + + + | Rh Type | Negative | | REFERENCE | | | | | | [facility] | | | [facility] | | + + + + + + | Antibody | Positive | | REFERENCE | | | Screen | | | [facility] | [facility] | [facility] | | | | | [facility] | | + + + + + + + + | Specimen | + + | Blood specimen | | (specimen) | + + + + + | Narrative | Performed At | + + + | Specimen Expiration Date: [id number] | [facility] | | | [facility] | | | [facility] | [facility] | + + + + + + + + | Performing | Address | City/State/Zipcode | Phone Number | | Organization | | | | + + + + + | [facility] | [address] | [place] [address] | [phone] | | [facility] | | | | | [facility] | | | | [facility] | | | | + + + + + PTT (06/10/2018 12:46 AM PDT) + + + + + + | Component | Value | Ref Range | Performed | Pathologist | | | | | At | Signature | + + + + + + | aPTT | 26Comment: Deep venous | 26 - 36 sec | [facility] | | | | thrombosis or pulmonary | | [facility] | | | | embolism therapeutic | | HEART | | | | heparin levels of 0.3 to | | MEDICAL | | | | 0.7 Units/mL anti | | CENTER | | | | FactorXa levels usually | | LABORATORY | | | | correspond to an aPTT of | | [facility] | | | | 65 to 99 seconds. Acute | | | | | | cardiac syndrome | | | | | | therapeutic range based | | | | | | on heparin levels of 0.2 | | | | | | to 0.5 usually | | | | | | correspond to an aPTT of | | | | | | 57 to 76 seconds. | | | | | | Pediatric guidelines | | | | | | suggested heparin levels | | | | | | of 0.35 to 0.7 usually | | | | | | correspond to an aPTT of | | | | | | 69 to 99 | | | | | | seconds.Performed by [facility] | | | | | | [address], | | | | | | [place] [address] | | | | + + + + + + + + | Specimen | + + | Blood specimen | | (specimen) | + + + + + + + | Performing | Address | City/State/Zipcode | Phone Number | | Organization | | | | + + + + + | [facility] | [address] | [place] [address] | | | [facility] | | | | | LABORATORY [facility] | | | | + + + + + CV CARDIAC PROCEDURE (06/09/2018 1:09 PM PDT) + +-------+ + + + | Component | Value | Ref Range | Performed | Pathologist | | | | | At | Signature | + +-------+ + + + | LVEF-LVGRAM | 37 | % | [facility] | | | CARDIAC | | | | | | CATH | | | | | + +-------+ + + + + + | Specimen | + + | | + + + + | Addenda | + + | Addendum by Shad Schuler MD on 06/09/2018 6:41 PM 1. 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 2. Ischemic | | cardiomyopathy with a moderate very severe mid to basal inferior wall motion | | abnormalities, anterolateral wall motion abnormality, hyperkinetic anterior wall and | | apex, overall EF about 37%. 3. Normal LV end-diastolic pressure, 10-12 mmHg. 4. | | Severe mitral annular calcification. No significant mitral regurgitation. 5. | | Patient's back problem made it difficult to lie on the table without moving her | | legs. Successful right radial approach today. PLANS: CT surgery consult for CABG. | | For additional detail as to the procedures performed and the equipment | | that was utilized, please refer to the Procedure Log. | + + + + + | Narrative | Performed At | + + + | 1. Severely | [facility] | | calcified coronaries with severe three-vessel CAD including 60% | | | distal left main, 90% ostial circumflex, 99% proximal circumflex, | | | obtuse marginal 4 and 5 disease, ostial and proximal 40% LAD, 95% | | | ostial septal director trust, 70% mid and distal LAD, 100% mid RCA with | | | left to right collaterals to a medium PDA and posterolateral.2. | | | Ischemic cardiomyopathy with a moderate very severe mid to basal | | | inferior wall motion abnormalities, anterolateral wall motion | | | abnormality, hyperkinetic anterior wall and apex, overall EF about | | | 37%.3. Normal LV end-diastolic pressure, 10-12 mmHg.4. Severe | | | mitral annular calcification. No significant mitral regurgitation.5. | | | Patient's back problem made it difficult to lie on the table | | | without moving her legs. Successful right radial approach today. | | | PLANS: CT surgery consult for CABG. For additional detail as to | | | the procedures performed and the equipment that was utilized, please | | | refer to the Procedure Log. | | | | | | | | | | | | | | |For additional detail as to the procedures performed and the equipment | | |that was utilized, please refer to the Procedure Log. | | | | | + + + + +---------+ + + | Performing | Address | City/State/Zipcode | Phone Number | | Organization | | | | + +---------+ + + | [facility] | | | | + +---------+ + + LVEF VALUE (06/09/2018 1:00 PM PDT) + +-------+ + + + | Component | Value | Ref Range | Performed | Pathologist | | | | | At | Signature | + +-------+ + + + | LVEF-LVGRAM | 37 | % | | | | CARDIAC | | | | | | CATH | | | | | + +-------+ + + + NM Nuclear Stress Test (Exercise) (06/09/2018 10:45 AM PDT) + +--------+ + + + | Component | Value | Ref Range | Performed | Pathologist | | | | | At | Signature | + +--------+ + + + | BASELINE | 85 | bpm | [facility] | | | HEART RATE | | | | | + +--------+ + + + | BASELINE | 144/82 | mmHg | [facility] | | | BLOOD | | | | | | PRESSURE | | | | | + +--------+ + + + | PEAK HEART | 113 | | [facility] | | | RATE | | | | | + +--------+ + + + | PEAK BLOOD | 137/76 | mmHG | [facility] | | | PRESSURE | | | | | + +--------+ + + + | Target HR | 133 | | [facility] | | + +--------+ + + + | Percent HR | 72 | | [facility] | | + +--------+ + + + | Estimated | 16,498 | | [facility] | | | rate | | | | | | pressure | | | | | + +--------+ + + + | ST | 0.0 | mm | [facility] | | | Elevation | | | | | | (mm) | | | | | + +--------+ + + + | LVEF-SPECT | 32 | % | [facility] | | | NUCLEAR | | | | | | STRESS/VIAB | | | | | | ILITY | | | | | + +--------+ + + + | NM stress | 155 | | [facility] | | | end | | | | | | diastolic | | | | | | volume | | | | | + +--------+ + + + | NM stress | 105 | | [facility] | | | end | | | | | | systolic | | | | | | volume | | | | | + +--------+ + + + | TID VALUE | 1.09 | | [facility] | | + +--------+ + + + + + | Specimen | + + | | + + + + + | Narrative | Performed At | + + + | 1. High | [facility] | | risk study due to ischemia with remote infarction, low EF and poor | | | exercise tolerance2. Anterior septal ischemia, mid to apical. | | | Moderate severity. 3. Cardiomyopathy, EF calculated 32% - may be off | | | due to total lack of counts in the inferior and lateral castillo from | | | prior AR. 4. Mild destinee infarct ischemia. LARGE SEVERE inferior and | | | Lateral AR. Cath will be recommended to see best options. | | | | | |Cath will be recommended to see best options. | | | | | | | | + + + + +---------+ + + | Performing | Address | City/State/Zipcode | Phone Number | | Organization | | | | + +---------+ + + | [facility] | | | | + +---------+ + + ECG 12 lead (06/09/2018 4:21 AM PDT) + + | Specimen | + + | | + + + + + | Narrative | Performed At | + + + | HEART RATE:70 | [facility] | | bpmRR Interval:857 msAtrial Rate:70 msP-R Interval:156 msP | [facility] | | Duration:176 msP Horizontal Doran:19 degP Front Doran:70 degQ Onset:512 | | | msQRSD Interval:110 msQT Interval:444 msQTcB:480 msQTcF:467 msQRS | | | Horizontal Doran:157 degQRS Doran:-77 degI-40 Horizontal Doran:75 degI-40 | | | Front Doran:-59 degT-40 Horizontal Doran:240 degT-40 Front Doran:267 | | | degT Horizontal Doran:91 degT Wave Doran:68 degS-T Horizontal Doran:98 | | | degS-T Front Doran:103 degSeverity:- ABNORMAL ECG -INTERP:SINUS | | | RHYTHMINTERP:NONSPECIFIC IVCD WITH LADINTERP:INFERIOR INFARCT, | | | OLDElectronically signed by: ELIZABETH CAMPBELL 06-12-2018 11:25:24 | | |QTcB:480 ms | | |QTcF:467 ms | | |QRS Horizontal Doran:157 deg | | |QRS Doran:-77 deg | | |I-40 Horizontal Doran:75 deg | | |I-40 Front Doran:-59 deg | | |T-40 Horizontal Doran:240 deg | | |T-40 Front Doran:267 deg | | |T Horizontal Doran:91 deg | | |T Wave Doran:68 deg | | |S-T Horizontal Doran:98 deg | | |S-T Front Doran:103 deg | | |Severity:- ABNORMAL ECG - | | |INTERP:SINUS RHYTHM | | |INTERP:NONSPECIFIC IVCD WITH LAD | | |INTERP:INFERIOR INFARCT, OLD | | |Electronically signed by: ELIZABETH CAMPBELL 06-12-2018 11:25:24 | | + + + + + + + + | Performing | Address | City/State/Zipcode | Phone Number | | Organization | | | | + + + + + | [facility] | [address] | [place] [address] | [phone] | + + + + + Magnesium (06/09/2018 3:07 AM PDT) + + + +--------- ----+ + | Component | Value | Ref Range | Performe d | Pathologist | | | | | At | Signature | + + + +--------- ----+ + | Magnesium | 2.1Comment: Performed | 1.7 - 2.4 mg/dL | [facility] | | | | by [facility] [address], | | SACRED | | | | [place] [address] | | HEART | | | |Performed by [facility] [address], [place] [address] | | MEDICAL | | | | | | CENTER | | | | | | LAB[facility] | | | | | | [facility] | | + + + +--------- ----+ + + + | Specimen | + + | Blood specimen | | (specimen) | + + + + + + + | Performing | Address | City/State/Zipcode | Phone Number | | Organization | | | | + + + + + | [facility] | [address] | [place] [address] | | | [facility] | | | | | [facility] | | | | + + + + + CBC with Differential (06/09/2018 3:07 AM PDT) + + + +------- ------+ + | Component | Value | Ref Range | Perfor med | Pathologist | | | | | At | Signature | + + + +------- ------+ + | WBC | 7.3 | 3.8 - 11.0 K/uL | [facility] | | | | | | [facility] | | | | | | HEART | | | | | | MEDICA [facility] | | | | | | CENTER | | | | | | LAB[facility] | | | | | | [facility] | | + + + +------- ------+ + | RBC | 4.64 | 3.70 - 5.10 | [facility] | | | | | M/uL | [facility] | | | | | | HEART | | | | | | MEDICA [facility] | | | | | | CENTER | | | | | | LABORA TORY | | | | | | [facility] | | + + + +------- ------+ + | Hemoglobin | 13.9 | 11.3 - 15.5 | [facility] | | | | | g/dL | [facility] | | | | | | HEART | | | | | | MEDICA [facility] | | | | | | CENTER | | | | | | LABORA TORY | | | | | | [facility] | | + + + +------- ------+ + | Hct | 41.4 | 34.0 - 46.0 % | [facility] | | | | | | [facility] | | | | | | HEART | | | | | | [facility] | | | | | | CENTER | | | | | | LAB[facility]A T[facility] | | | | | | [facility] | | + + + +------- ------+ + | MCV | 89.3 | 80.0 - 100.0 fL | [facility] | | | | | | [facility] | | | | | | HEART | | | | | | [facility] | | | | | | CENTER | | | | | | LAB[facility]A T[facility] | | | | | | [facility] | | + + + +------- ------+ + | MCH | 29.9 | 27.0 - 34.0 pg | [facility] | | | | | | [facility] | | | | | | HEART | | | | | | [facility] | | | | | | CENTER | | | | | | LABORA TORY | | | | | | [facility] | | + + + +------- ------+ + | MCHC | 33.5 | 32.0 - 35.5 | [facility] | | | | | g/dL | [facility] | | | | | | HEART | | | | | | [facility] | | | | | | CENTER | | | | | | LABORA TORY | | | | | | [facility] | | + + + +------- ------+ + | RDW-CV | 15.2 | 11.0 - 15.5 % | [facility] | | | | | | [facility] | | | | | | HEART | | | | | | [facility] | | | | | | CENTER | | | | | | LABORA TORY | | | | | | [facility] | | + + + +------- ------+ + | Platelet | 332 | 150 - 400 K/uL | [facility] | | | Count | | | [facility] | | | | | | HEART | | | | | | [facility] | | | | | | CENTER | | | | | | LABORA TORY | | | | | | [facility] | | + + + +------- ------+ + | MPV | 7.0 (L) | 7.5 - 11.2 fL | [facility] | | | | | | [facility] | | | | | | HEART | | | | | | [facility] | | | | | | CENTER | | | | | | LABORA TORY | | | | | | [facility] | | + + + +------- ------+ + | % | 59.1 | 40.0 - 75.0 % | [facility] | | | Neutrophils | | | [facility] | | | | | | HEART | | | | | | MED[facility] | | | | | | CENTER | | | | | | LABORA TORY | | | | | | [facility] | | + + + +------- ------+ + | % | 29.5 | 15.0 - 48.0 % | [facility] | | | Lymphocytes | | | [facility] | | | | | | HEART | | | | | | MED[facility] | | | | | | CENTER | | | | | | LABORA TORY | | | | | | [facility] | | + + + +------- ------+ + | % Monocytes | 8.0 | 0.0 - 12.0 % | [facility] | | | | | | [facility] | | | | | | HEART | | | | | | [facility] | | | | | | CENTER | | | | | | LABORA TORY | | | | | | [facility] | | + + + +------- ------+ + | % | 2.4 | 0.0 - 7.0 % | [facility] | | | Eosinophils | | | [facility] | | | | | | HEART | | | | | | MED[facility] | | | | | | CENTER | | | | | | LABORA TORY | | | | | | [facility] | | + + + +------- ------+ + | % Basophils | 1.0 | 0.0 - 2.0 % | [facility] | | | | | | [facility] | | | | | | HEART | | | | | | [facility] | | | | | | CENTER | | | | | | LABORA TORY | | | | | | [facility] | | + + + +------- ------+ + | Absolute | 4.30 | 1.90 - 7.40 | [facility] | | | Neutrophils | | K/uL | [facility] | | | | | | HEART | | | | | | [facility] | | | | | | CENTER | | | | | | LABORA TORY | | | | | | [facility] | | + + + +------- ------+ + | Absolute | 2.15 | 1.00 - 3.90 | [facility] | | | Lymphocytes | | K/uL | [facility] | | | | | | HEART | | | | | | MED[facility] | | | | | | CENTER | | | | | | LABORA TORY | | | | | | [facility] | | + + + +------- ------+ + | Absolute | 0.58 | 0.00 - 0.80 | [facility] | | | Monocytes | | K/uL | [facility] | | | | | | HEART | | | | | | MED[facility] | | | | | | CENTER | | | | | | LABORA TORY | | | | | | [facility] | | + + + +------- ------+ + | Absolute | 0.18 | 0.00 - 0.50 | [facility] | | | Eosinophils | | K/uL | [facility] | | | | | | HEART | | | | | | MEDICA L | | | | | | CENTER | | | | | | LABORA TORY | | | | | | [facility] | | + + + +------- ------+ + | Absolute | 0.07Comment: Performed | 0.00 - 0.10 | [facility] | | | Basophils | by [facility] [address], | K/uL | SACRED | | | | [place] [address] | | HEART | | | |Performed by [facility] [address], [place] [address] | | MEDICA L | | | | | | CENTER | | | | | | LABORA TORY | | | | | | [facility] | | + + + +------- ------+ + + + | Specimen | + + | Blood specimen | | (specimen) | + + + + + + + | Performing | Address | City/State/Zipcode | Phone Number | | Organization | | | | + + + + + | [facility] | [address] | [place] [address] | | | [facility] | | | | | LABORATORY [facility] | | | | + + + + + Basic Metabolic Panel (06/09/2018 3:07 AM PDT) + + + + + + | Component | Value | Ref Range | Performed | Pathologist | | | | | At | Signature | + + + + + + | Na | 137 | 135 - 145 | [facility] | | | | | mmol/L | [facility] | | | | | | HEART | | | | | | MEDICAL | | | | | | CENTER | | | | | | LABORATORY | | | | | | [facility] | | + + + + + + | K | 4.6 | 3.5 - 5.0 | [facility] | | | | | mmol/L | [facility]CR[facility] | | | | | | HEART | | | | | | MEDICAL | | | | | | CENTER | | | | | | LABORATORY | | | | | | [facility] | | + + + + + + | Cl | 108 | 99 - 109 mmol/L | [facility] | | | | | | [facility]CR[facility] | | | | | | HEART | | | | | | MEDICAL | | | | | | CENTER | | | | | | LABORATORY | | | | | | [facility] | | + + + + + + | CO2 | 22 | 21 - 28 mmol/L | [facility] | | | | | | [facility]CR[facility] | | | | | | HEART | | | | | | MEDICAL | | | | | | CENTER | | | | | | LABORATORY | | | | | | [facility] | | + + + + + + | Anion Gap | 7 | 5 - 16 mmol/L | [facility] | | | | | | [facility] | | | | | | HEART | | | | | | MEDICAL | | | | | | CENTER | | | | | | LABORATORY | | | | | | [facility] | | + + + + + + | Calcium | 9.0 | 8.5 - 10.2 | [facility] | | | | | mg/dL | [facility]CR[facility] | | | | | | HEART | | | | | | MEDICAL | | | | | | CENTER | | | | | | LABORATORY | | | | | | [facility] | | + + + + + + | BUN | 14 | 8 - 25 mg/dL | [facility] | | | | | | [facility]CR[facility] | | | | | | HEART | | | | | | MEDICAL | | | | | | CENTER | | | | | | LABORATORY | | | | | | [facility] | | + + + + + + | Creatinine | 0.82 | 0.50 - 1.00 | [facility] | | | | | mg/dL | [facility]CR[facility] | | | | | | HEART | | | | | | MEDICAL | | | | | | CENTER | | | | | | LABORATORY | | | | | | [facility] | | + + + + + + | Glucose | 96 | 65 - 99 mg/dL | [facility] | | | | | | [facility]CR[facility] | | | | | | HEART | | | | | | MEDICAL | | | | | | CENTER | | | | | | LABORATORY | | | | | | [facility] | | + + + + + + | Estimated | 76 (L)Comment: eGFR<60 | >=90 | [facility] | | | GFR | consistent with impaired | mL/min/1.73m2 | [facility] | | | | kidney | | HEART | | | | function.Performed by | | MEDICAL | | | | [facility] [address], | | CENTER | | | | [place] [address] | | LABORATORY | | | | | | [facility] | | + + + + + + + + | Specimen | + + | Blood specimen | | (specimen) | + + + + + + + | Performing | Address | City/State/Zipcode | Phone Number | | Organization | | | | + + + + + | [facility] | [address] | [place] [address] | | | [facility] | | | | | [facility] | | | | + + + + + ECHO Complete (06/08/2018 11:52 AM PDT) + +--------+ + + + | Component | Value | Ref Range | Performed | Pathologist | | | | | At | Signature | + +--------+ + + + | LVEF-TTE | 45 | % | [facility] | | | TRANSTHORAC | | | | | | IC ECHO | | | | | + +--------+ + + + | BASELINE | 143/80 | mmHg | [facility] | | | BLOOD | | | | | | PRESSURE | | | | | + +--------+ + + + | Patient | 140 lb | | [facility] | | | Weight | | | | | | (lbs) | | | | | + +--------+ + + + | Patient | 68 in | | [facility] | | | Height | | | | | + +--------+ + + + | RA PRESSURE | 3 | mmHg | [facility] | | + +--------+ + + + | LVIDd | 4.45 | cm | [facility] | | + +--------+ + + + | FS | 21 | % | [facility] | | + +--------+ + + + | LA volume | 64.9 | mL | [facility] | | + +--------+ + + + | Ascending | 2.9 | cm | [facility] | | | aorta | | | | | + +--------+ + + + | AV mean | 5 | mmHg | [facility] | | | gradient | | | | | + +--------+ + + + | Aortic | 2.6 | cm2 | [facility] | | | Valve Area | | | | | | by | | | | | | Continuity | | | | | | VTI | | | | | + +--------+ + + + | LVOT | 2.1 | cm | [facility] | | | diameter | | | | | + +--------+ + + + | LVOT peak | 103 | cm/s | [facility] | | | padmini | | | | | + +--------+ + + + | LVOT peak | 20.9 | cm | [facility] | | | VTI | | | | | + +--------+ + + + | AV peak padmini | 150 | cm/s | [facility] | | + +--------+ + + + | AV VTI | 27.8 | cm | [facility] | | + +--------+ + + + | AV peak | 9 | mmHg | [facility] | | | gradient | | | | | + +--------+ + + + | MV peak | 2.26 | mmHg | [facility] | | | gradient | | | | | + +--------+ + + + | LA Volume | 37 | mL/m2 | [facility] | | | Index | | | | | + +--------+ + + + | AV LVOT | 4 | mmHg | [facility] | | | Peak | | | | | | Gradient | | | | | + +--------+ + + + | AV LVOT | 2 | mmHg | [facility] | | | Mean | | | | | | Gradient | | | | | + +--------+ + + + | TR Peak | 19 | mmHg | [facility] | | | Gradient | | | | | + +--------+ + + + | TR Velocity | 217 | cm | [facility] | | + +--------+ + + + | LV | 51 | % | [facility] | | | Puga's | | | | | | Biplane EF | | | | | + +--------+ + + + | LV ED | 88.1 | ml | [facility] | | | Volume | | | | | | (Puga's) | | | | | + +--------+ + + + | LV ED | 50 | ml/m2 | [facility] | | | Volume | | | | | | Index | | | | | + +--------+ + + + | LV ES | 43.6 | ml | [facility] | | | Volume | | | | | + +--------+ + + + | LVOT Mean | 68.4 | cm/s | [facility] | | | Velocity | | | | | + +--------+ + + + | RVSP | 22 | mmHg | [facility] | | | Estimated | | | | | + +--------+ + + + | MV E' | 4.9 | cm/s | [facility] | | | Lateral | | | | | | Velocity | | | | | + +--------+ + + + | MV E' | 3.7 | cm/s | [facility] | | | Septal | | | | | | Velocity | | | | | + +--------+ + + + | MV | 391 | msec | [facility] | | | Deceleratio | | | | | | n Time | | | | | + +--------+ + + + | MV E/A | 0.59 | | [facility] | | | Ratio | | | | | + +--------+ + + + | MV Peak | 127 | cm/s | [facility] | | | A-Wave | | | | | + +--------+ + + + | MV Peak | 75.2 | cm/s | [facility] | | | E-Wave | | | | | + +--------+ + + + | AV Mean | 103 | cm/s | [facility] | | | Velocity | | | | | + +--------+ + + + | LA/Aorta | 1.19 | | [facility] | | | Ratio | | | | | + +--------+ + + + | LA Area | 20.3 | cm2 | [facility] | | + +--------+ + + + | LA Systolic | 21.18 | mmHg | [facility] | | | Pressure | | | | | + +--------+ + + + | MV E/E | 20.32 | | [facility] | | | SEPTAL | | | | | + +--------+ + + + | MV E/E | 15.35 | | [facility] | | | LATERAL | | | | | + +--------+ + + + | LA Major | 0.278 | cm | [facility] | | + +--------+ + + + | LV ES | 25 | ml/m2 | [facility] | | | Volume | | | | | | Index | | | | | + +--------+ + + + | Cardiac | 5.57 | l/min | [facility] | | | Output | | | | | + +--------+ + + + | Cardiac | 3.16 | l/min/m2 | [facility] | | | Index | | | | | + +--------+ + + + | Heart Rate | 74 | | [facility] | | + +--------+ + + + | Aortic Root | 3.2 | cm | [facility] | | | Diameter | | | | | + +--------+ + + + | IVS | 1.29 | cm | [facility] | | | Diastolic | | | | | | Thickness | | | | | | MM | | | | | + +--------+ + + + | LVPW | 0.88 | cm | [facility] | | | Diastolic | | | | | | Thickness | | | | | | MM | | | | | + +--------+ + + + | IVS | 1.52 | cm | [facility] | | | Systolic | | | | | | Thickness | | | | | | MM | | | | | + +--------+ + + + | LV Systolic | 3.52 | cm | [facility] | | | Diameter | | | | | | MM | | | | | + +--------+ + + + | LVPW | 0.87 | cm | [facility] | | | Systolic | | | | | | Thickness | | | | | | MM | | | | | + +--------+ + + + | LA Systolic | 3.8 | cm | [facility] | | | Diameter | | | | | | MM | | | | | + +--------+ + + + + + | Specimen | + + | | + + + + + | Narrative | Performed At | + + + | 1. Overall EF | [facility] | | about 45% with moderate hypokinesis of the basal lateral wall and | | | severe hypokinesis of the mid to basal inferior wall. Mild LVH. 2. | | | Normal RV, Atria, IVC, pericardium, and aorta size. 3. Moderate | | | mitral annular calcification with posteriorly associated small mobile | | | echodensity (on the atrial side) most consistent with calcification. | | | No stenosis & trace MR. 4. Mild aortic valve sclerosis. Trace | | | Tricuspid regurgitation. Normal estimated peak PA pressure < 25 mm Hg. | | | Excellent with stable old Infarction. This is encouraging. | | |Excellent with stable old Infarction. This is encouraging. | | | | | | | | + + + + +---------+ + + | Performing | Address | City/State/[facility] Cent[facility]ode | Phone Number | | Organization | | | | + +---------+ + + | [facility] | | | | + +---------+ + + Troponin I (06/08/2018 9:21 AM PDT) + + + + + + | Component | Value | Ref Range | Performed | Pathologist | | | | | At | Signature | + + + + + + | Troponin I | 0.260 (AA)Comment: | 0.000 - 0.069 | [facility] | | | | Critical TRPI called to | ng/mL | [facility] | | | | and read back by LEANN Sandhu | | HEART | | | | at 06/08/2018 10:03:33 | | MEDICAL | | | | PDT by [place]. 0.070 - | | CENTER | | | | 0.299 ng/ml, Low | | LABORATORY | | | | Positive. In absence | | [facility] | | | | of a diagnostic EKG, low | | | | | | positive results on | | | | | | initial screening have | | | | | | poor positive predictive | | | | | | value and should be | | | | | | repeated in 3-6 | | | | | | hours.Ultra-Sensitive | | | | | | TroponinPerformed by [facility] | | | | | | [address], | | | | | | [place] [address] | | | | + + + + + + + + | Specimen | + + | Blood specimen | | (specimen) | + + + + + + + | Performing | Address | City/State/Zipcode | Phone Number | | Organization | | | | + + + + + | [facility] | [address] | [place] [address] | | | [facility] | | | | | LABORAT[facility] | | | | + + + + + ECG 12 lead (06/08/2018 4:30 AM PDT) + + | Specimen | + + | | + + + + + | Narrative | Performed At | + + + | HEART RATE:94 | [facility] | | bpmRR Interval:638 msAtrial Rate:95 msP-R Interval:148 msP | [facility] | | Duration:200 msP Horizontal Doran:19 degP Front Doran:58 degQ Onset:512 | | | msQRSD Interval:110 msQT Interval:404 msQTcB:506 msQTcF:469 msQRS | | | Horizontal Doran:184 degQRS Doran:265 degI-40 Horizontal Doran:78 degI-40 | | | Front Doran:269 degT-40 Horizontal Doran:240 degT-40 Front Doran:259 | | | degT Horizontal Doran:77 degT Wave Doran:63 degS-T Horizontal Doran:83 | | | degS-T Front Doran:99 degSeverity:- ABNORMAL ECG -INTERP:SINUS | | | RHYTHMINTERP:NONSPECIFIC IVCD WITH LADINTERP:INFERIOR INFARCT, | | | OLDElectronically signed by: ELIZABETH CAMPBELL 06-12-2018 11:24:43 | | |QTcB:506 ms | | |QTcF:469 ms | | |QRS Horizontal Doran:184 deg | | |QRS Doran:265 deg | | |I-40 Horizontal Doran:78 deg | | |I-40 Front Doran:269 deg | | |T-40 Horizontal Doran:240 deg | | |T-40 Front Doran:259 deg | | |T Horizontal Doran:77 deg | | |T Wave Doran:63 deg | | |S-T Horizontal Doran:83 deg | | |S-T Front Doran:99 deg | | |Severity:- ABNORMAL ECG - | | |INTERP:SINUS RHYTHM | | |INTERP:NONSPECIFIC IVCD WITH LAD | | |INTERP:INFERIOR INFARCT, OLD | | |Electronically signed by: ELIZABETH CAMPBELL 06-12-2018 11:24:43 | | + + + + + + + + | Performing | Address | City/State/Zipcode | Phone Number | | Organization | | | | + + + + + | [facility] | [address] | [place] [address] | [phone] | + + + + + Troponin I (06/08/2018 3:16 AM PDT) + + + + + + | Component | Value | Ref Range | Performed | Pathologist | | | | | At | Signature | + + + + + + | Troponin I | 0.311 (AA)Comment: | 0.000 - 0.069 | [facility] | | | | Critical troponin called | ng/mL | [facility] | | | | to and read back by | | HEART | | | | luis soto at | | MEDICAL | | | | 06/08/2018 04:58:11 PDT | | CENTER | | | | by mlc. >/= 0.300 | | LABORATORY | | | | ng/ml. Consistant with | | CERNER | | | | traditional acute | | | | | | myocardial infarction. | | | | | | Serial Troponin levels | | | | | | are | | | | | | recommended.Ultra-Sensit | | | | | | bolivar TroponinPerformed by | | | | | | [facility] [address], | | | | | | [place] [address] | | | | + + + + + + + + | Specimen | + + | Blood specimen | | (specimen) | + + + + + + + | Performing | Address | City/State/Zipcode | Phone Number | | Organization | | | | + + + + + | [facility] | [address] | [place] [address] | | | [facility] | | | | | LABORATORY [place] | | | | + + + + + Magnesium (06/08/2018 3:16 AM PDT) + + + +--------- ----+ + | Component | Value | Ref Range | Performe d | Pathologist | | | | | At | Signature | + + + +--------- ----+ + | Magnesium | 1.8Comment: Performed | 1.7 - 2.4 mg/dL | [facility] | | | | by [facility] [address], | | SACRED | | | | [place] [address] | | HEART | | | |Performed by [facility] [address], [place] [address] | | MEDICAL | | | | | | CENTER | | | | | | LABORATO RY | | | | | | CERNER | | + + + +--------- ----+ + + + | Specimen | + + | Blood specimen | | (specimen) | + + + + + + + | Performing | Address | City/State/Zipcode | Phone Number | | Organization | | | | + + + + + | [facility] | [address] | [place] [address] | | | [facility] | | | | | LABORATORY CERN[place] | | | | + + + + + Renal Function Panel (06/08/2018 3:16 AM PDT) + + + + + + | Component | Value | Ref Range | Performed | Pathologist | | | | | At | Signature | + + + + + + | Na | 137 | 135 - 145 | [facility] | | | | | mmol/L | SACRED | | | | | | HEART | | | | | | MEDICAL | | | | | | CENTER | | | | | | LABORATORY | | | | | | CERNER | | + + + + + + | K | 3.6 | 3.5 - 5.0 | [facility] | | | | | mmol/L | SACRED | | | | | | HEART | | | | | | MEDICAL | | | | | | CENTER | | | | | | LABORATORY | | | | | | CERNER | | + + + + + + | Cl | 103 | 99 - 109 mmol/L | [facility] | | | | | | SACRED | | | | | | HEART | | | | | | MEDICAL | | | | | | CENTER | | | | | | LABORATORY | | | | | | CERNER | | + + + + + + | CO2 | 23 | 21 - 28 mmol/L | [facility] | | | | | | SACR[facility] | | | | | | HEART | | | | | | MEDICAL | | | | | | CENTER | | | | | | LABORATORY | | | | | | CERNER | | + + + + + + | Anion Gap | 11 | 5 - 16 mmol/L | [facility] | | | | | | SACR[facility] | | | | | | HEART | | | | | | MEDICAL | | | | | | CENTER | | | | | | LABORATORY | | | | | | CERNER | | + + + + + + | Calcium | 9.0 | 8.5 - 10.2 | [facility] | | | | | mg/dL | SACRED | | | | | | HEART | | | | | | MEDICAL | | | | | | CENTER | | | | | | LABORATORY | | | | | | CERNER | | + + + + + + | Albumin | 4.4 | 3.3 - 4.8 g/dL | [facility] | | | | | | SACRED | | | | | | HEART | | | | | | MEDICAL | | | | | | CENTER | | | | | | LABORATORY | | | | | | CERNER | | + + + + + + | BUN | 10 | 8 - 25 mg/dL | [facility] | | | | | | SACR[facility] | | | | | | HEART | | | | | | MEDICAL | | | | | | CENTER | | | | | | LABORATORY | | | | | | CERNER | | + + + + + + | Creatinine | 0.78 | 0.50 - 1.00 | [facility] | | | | | mg/dL | SACRED | | | | | | HEART | | | | | | MEDICAL | | | | | | CENTER | | | | | | LABORATORY | | | | | | CERNER | | + + + + + + | Glucose | 111 (H) | 65 - 99 mg/dL | [facility] | | | | | | SACRED | | | | | | HEART | | | | | | MEDICAL | | | | | | CENTER | | | | | | LABORATORY | | | | | | CERNER | | + + + + + + | Phosphorus | 2.8 | 2.6 - 4.4 mg/dL | [facility] | | | | | | SACR[facility] | | | | | | HEART | | | | | | MEDICAL | | | | | | CENTER | | | | | | LABORATORY | | | | | | CERNER | | + + + + + + | Estimated | 81 (L)Comment: eGFR<60 | >=90 | [facility] | | | GFR | consistent with impaired | mL/min/1.73m2 | SACRED | | | | kidney | | HEART | | | | function.Performed by | | MEDICAL | | | | [facility] [address], | | CENTER | | | | [place] [address] | | LABORATORY | | | | | | CERNER | | + + + + + + + + | Specimen | + + | Blood specimen | | (specimen) | + + + + + + + | Performing | Address | City/State/Zipcode | Phone Number | | Organization | | | | + + + + + | [facility] | [address] | [place] [address] | | | [facility] | | | | | LABORATORY [facility]ERN[place] | | | | + + + + + Troponin I (06/07/2018 8:51 PM PDT) + + + + + + | Component | Value | Ref Range | Performed | Pathologist | | | | | At | Signature | + + + + + + | Troponin I | 0.293 (AA)Comment: | 0.000 - 0.069 | [facility] | | | | Critical TROP called to | ng/mL | SACRED | | | | and read back by 6S | | HEART | | | | MATTI Herrera at [address] by [place]. | | MEDICAL | | | | 0.070 - 0.299 ng/ml, | | CENTER | | | | Low Positive. In | | LABORATORY | | | | absence of a diagnostic | | CERNER | | | | EKG, low positive | | | | | | results on initial | | | | | | screening have poor | | | | | | positive predictive | | | | | | value and should be | | | | | | repeated in 3-6 | | | | | | hours.Ultra-Sensitive | | | | | | TroponinPerformed by [facility] | | | | | | [address], | | | | | | [place] [address] | | | | + + + + + + + + | Specimen | + + | Blood specimen | | (specimen) | + + + + + + + | Performing | Address | City/State/Zipcode | Phone Number | | Organization | | | | + + + + + | [facility] | [address] | [place] [address] | | | [facility] | | | | | [place] | | | | + + + + + Troponin I (06/07/2018 4:26 PM PDT) + + + + + + | Component | Value | Ref Range | Performed | Pathologist | | | | | At | Signature | + + + + + + | Troponin I | 0.307 (AA)Comment: | 0.000 - 0.069 | [facility] | | | | Critical TROP called to | ng/mL | SACRED | | | | and read back by 6S | | HEART | | | | HECTOR Mcclain at [address] by | | MEDICAL | | | | [place]. >/= 0.300 ng/ml. | | CENTER | | | | Consistant with | | LABORATORY | | | | traditional acute | | CERNER | | | | myocardial infarction. | | | | | | Serial Troponin levels | | | | | | are | | | | | | recommended.Ultra-Sensit | | | | | | bolivar TroponinPerformed by | | | | | | [facility] [address], | | | | | | [place] [address] | | | | + + + + + + + + | Specimen | + + | Blood specimen | | (specimen) | + + + + + + + | Performing | Address | City/State/Zipcode | Phone Number | | Organization | | | | + + + + + | [facility] | [address] | [place] [address] | | | [facility] | | | | | LABORATORY [place] | | | | + + + + + CK Total with CK-MB (06/07/2018 11:35 AM PDT) + + + + + + | Component | Value | Ref Range | Performed | Pathologist | | | | | At | Signature | + + + + + + | CK TOTAL | 85 | 30 - 240 U/L | [facility] | | | | | | [facility]CR[facility] | | | | | | HEART | | | | | | MEDICAL | | | | | | CENTER | | | | | | LABORATORY | | | | | | CERNER | | + + + + + + | CK-MB | 3.1 | 0.0 - 7.4 ng/mL | [facility] | | | | | | [facility]CR[facility] | | | | | | HEART | | | | | | MEDICAL | | | | | | CENTER | | | | | | LABORATORY | | | | | | CERNER | | + + + + + + | CK-MB Index | 3.6 (H)Comment: | 0.0 - 3.1 % | [facility] | | | | Performed by [facility] [address] | | SACRED | | | | [address] [place] | | HEART | | | | [address] | | MEDICAL | | | | | | CENTER | | | | | | LABORATORY | | | | | | CERNER | | + + + + + + + + | Specimen | + + | Blood specimen | | (specimen) | + + + + + + + | Performing | Address | City/State/Zipcode | Phone Number | | Organization | | | | + + + + + | [facility] | [address] | [place] [address] | | | [facility] | | | | | LABORATORY [place] | | | | + + + + + XR Chest PA and Lateral (06/07/2018 9:22 AM PDT) + + | Specimen | + + | | + + + + + | Narrative | Performed At | + + + | CHEST TWO VIEWS CLINICAL INFORMATION: Abdominal and chest | [facility] | | pain. COMPARISON: CT ANGIOGRAM CHEST W CONTRAST dated 10/27/2016; | | | XR CHEST AP PORTABLE dated 10/27/2016; XR CHEST AP PORTABLE dated | | | 08/25/2016 FINDINGS: Heart, lungs and vessels normal. No | | | pneumothorax, pleural effusion or adenopathy. No significant bone | | | abnormality. IMPRESSION: Negative chest. Signed by: | | | MD Chase, Kavon Sign Date/Time: 06/07/2018 9:27 AM | | + + + + + | Procedure Note | + + | Tim, Rad Results In - 06/07/2018 9:31 AM PDT | | CHEST TWO VIEWS | | | | CLINICAL INFORMATION: | | Abdominal and chest pain. | | | | COMPARISON: | | CT ANGIOGRAM CHEST W CONTRAST dated 10/27/2016; XR CHEST AP PORTABLE | | dated 10/27/2016; XR CHEST AP PORTABLE dated 08/25/2016 | | | | FINDINGS: | | Heart, lungs and vessels normal. No pneumothorax, pleural effusion or | | adenopathy. No significant bone abnormality. | | | | IMPRESSION: | | Negative chest. | | | | | | | | Signed by: MD Stone Steve | | Sign Date/Time: 06/07/2018 9:27 AM | + + + +---------+ + + | Performing | Address | City/State/Zipcode | Phone Number | | Organization | | | | + +---------+ + + | [facility] | | | | + +---------+ + + Drugs of Abuse, Screen, Urine (06/07/2018 9:14 AM PDT) + + + + + + | Component | Value | Ref Range | Performed | Pathologist | | | | | At | Signature | + + + + + + | Tricyclics, | Negative | Negative | [facility] | | | UR | | | SACRED | | | | | | HEART | | | | | | MEDICAL | | | | | | CENTER | | | | | | LABORATORY | | | | | | CERNER | | + + + + + + | Amphetamine | Positive (A) | Negative | [facility] | | | Screen, | | | SACRED | | | Urine | | | HEART | | | | | | MEDICAL | | | | | | CENTER | | | | | | LABORATORY | | | | | | CERNER | | + + + + + + | Barbiturate | Negative | Negative | [facility] | | | Screen | | | SACRED | | | Urine | | | HEART | | | | | | MEDICAL | | | | | | CENTER | | | | | | LABORATORY | | | | | | CERNER | | + + + + + + | Benzodiazep | Negative | Negative | [facility] | | | malorie, | | | SACRED | | | Urine, | | | HEART | | | Screen (200 | | | MEDICAL | | | ng/mL) | | | CENTER | | | | | | LABORATORY | | | | | | CERNER | | + + + + + + | Cocaine | Negative | Negative | [facility] | | | Screen, | | | SACRED | | | Urine | | | HEART | | | | | | MEDICAL | | | | | | CENTER | | | | | | LABORATORY | | | | | | CERNER | | + + + + + + | Opiate | Positive (A) | Negative | [facility] | | | Screen, | | | SACRED | | | Urine | | | HEART | | | | | | MEDICAL | | | | | | CENTER | | | | | | LABORATORY | | | | | | CERNER | | + + + + + + | Oxycodone, | Negative | Negative | [facility] | | | UR | | | SACRED | | | | | | HEART | | | | | | MEDICAL | | | | | | CENTER | | | | | | LABORATORY | | | | | | CERNER | | + + + + + + | Cannabinoid | Positive (A) | Negative | [facility] | | | s Screen, | | | SACRED | | | Urine | | | HEART | | | | | | MEDICAL | | | | | | CENTER | | | | | | LABORATORY | | | | | | CERNER | | + + + + + + | Buprenorphi | Negative | Negative | [facility] | | | ne Screen, | | | SACRED | | | Urine | | | HEART | | | | | | MEDICAL | | | | | | CENTER | | | | | | LABORATORY | | | | | | CERNER | | + + + + + + | Phencyclidi | Negative | Negative | [facility] | | | ne, Screen, | | | SACRED | | | Urine | | | HEART | | | | | | MEDICAL | | | | | | CENTER | | | | | | LABORATORY | | | | | | CERNER | | + + + + + + | Porpoxyphen | Negative | Negative | [facility] | | | e Screen, | | | SACRED | | | Urine | | | HEART | | | | | | MEDICAL | | | | | | CENTER | | | | | | LABORATORY | | | | | | CERNER | | + + + + + + | Methampheta | Positive (A) | Negative | [facility] | | | mine Quant, | | | SACRED | | | Ur | | | HEART | | | | | | MEDICAL | | | | | | CENTER | | | | | | LABORATORY | | | | | | CERNER | | + + + + + + | Methadone | Negative | Negative | [facility] | | | Screen, | | | SACRED | | | Urine | | | HEART | | | | | | MEDICAL | | | | | | CENTER | | | | | | LABORATORY | | | | | | CERNER | | + + + + + + | U Tox | See CommentComment: | | [facility] | | | Comment | This entire battery is | | SACRED | | | | for screening purposes | | HEART | | | | only. Results are not | | MEDICAL | | | | confirmed.Results from | | CENTER | | | | any unconfirmed drug in | | LABORATORY | | | | this screening battery | | C[facility] | | | | should not be used for | | | | | | legal purposes. Please | | | | | | note: Some medications | | | | | | cause positive results | | | | | | with any or all tested | | | | | | drugs in this | | | | | | battery.Performed by [facility] | | | | | | [address], | | | | | | [place] [address] | | | | + + + + + + + + | Specimen | + + | Urine specimen | | (specimen) | + + + + + + + | Performing | Address | City/State/Zipcode | Phone Number | | Organization | | | | + + + + + | [facility] | [address] | [place] [address] | | | [facility] | | | | | LABORATORY [place] | | | | + + + + + Troponin I (06/07/2018 9:10 AM PDT) + + + + + + | Component | Value | Ref Range | Performed | Pathologist | | | | | At | Signature | + + + + + + | Troponin I | 0.305 (AA)Comment: | 0.000 - 0.069 | [facility] | | | | Critical TRPI called to | ng/mL | [facility]ED | | | | and read back by | | HEART | | | | TAYA Serrano at | | MEDICAL | | | | 06/07/2018 09:53:45 PDT | | CENTER | | | | by [place]. >/= 0.300 ng/ml. | | LABORATORY | | | | Consistant with | | [facility] | | | | traditional acute | | | | | | myocardial infarction. | | | | | | Serial Troponin levels | | | | | | are recommended. >/= | | | | | | 0.300 ng/ml. | | | | | | Consistant with | | | | | | traditional acute | | | | | | myocardial infarction. | | | | | | Serial Troponin levels | | | | | | are | | | | | | recommended.Ultra-Sensit | | | | | | bolivar TroponinCorrected | | | | | | from 0.305 ng/mL [CRIT] | | | | | | on 06/07/18 9:53:54 PDT | | | | | | by TAO | | | | | | [place].Performed by [facility] [address] | | | | [address] [place], [place] | | | | | | [id number] | | | | + + + + + + + + | Specimen | + + | Blood specimen | | (specimen) | + + + + + + + | Performing | Address | City/State/Zipcode | Phone Number | | Organization | | | | + + + + + | [facility] | [address] | [place] [address] | | | [facility] | | | | | LABORATORY [facility]ERN[place] | | | | + + + + + Myoglobin (06/07/2018 9:10 AM PDT) + + + + ---+ + | Component | Value | Ref Range | Performed | Pathologist | | | | | At | Signature | + + + + ---+ + | MYOGLOBIN, | 69Comment: Performed by | 0 - 69 ng/mL | [facility] | | | [facility] | [facility] [address], | | [place] | | | | [place] | | HEART | | | |Performed by [facility] [address], [place], [place] | | MEDICAL | | | | | | CENTER | | | | | | LABORATOR Y | | | | | | CERNER | | + + + + ---+ + + + | Specimen | + + | Blood specimen | | (specimen) | + + + + + + + | Performing | Address | City/State/Zipcode | Phone Number | | Organization | | | | + + + + + | [facility] | [address] | [place], [place] | | | [facility]ENTER | | | | | LABORATORY [place] | | | | + + + + + Lipase (06/07/2018 9:10 AM PDT) + + + + + + | Component | Value | Ref Range | Performed | Pathologist | | | | | At | Signature | + + + + + + | Lipase | 32Comment: Performed by | 11 - 82 U/L | [facility] | | | | [facility] [address], | | SACRED | | | | [place] [address] | | HEART | | | |Performed by [facility] [address], [place] [address] | | MEDICAL | | | | | | CENTER | | | | | | LABORATORY | | | | | | CERNER | | + + + + + + + + | Specimen | + + | Blood specimen | | (specimen) | + + + + + + + | Performing | Address | City/State/Zipcode | Phone Number | | Organization | | | | + + + + + | [facility] | [address] | [place] [address] | | | [facility] | | | | | LABORATORY [place] | | | | + + + + + Comprehensive Metabolic Panel (06/07/2018 9:10 AM PDT) + + + + + + | Component | Value | Ref Range | Performed | Pathologist | | | | | At | Signature | + + + + + + | Na | 140 | 135 - 145 | [facility] | | | | | mmol/L | SACRED | | | | | | HEART | | | | | | MEDICAL | | | | | | CENTER | | | | | | LABORATORY | | | | | | CERNER | | + + + + + + | K | 4.3 | 3.5 - 5.0 | [facility] | | | | | mmol/L | SACRED | | | | | | HEART | | | | | | MEDICAL | | | | | | CENTER | | | | | | LABORATORY | | | | | | CERNER | | + + + + + + | Cl | 106 | 99 - 109 mmol/L | [facility] | | | | | | [facility]CRED | | | | | | HEART | | | | | | MEDICAL | | | | | | CENTER | | | | | | LABORATORY | | | | | | CERNER | | + + + + + + | CO2 | 22 | 21 - 28 mmol/L | [facility] | | | | | | SACRED | | | | | | HEART | | | | | | MEDICAL | | | | | | CENTER | | | | | | LABORATORY | | | | | | CERNER | | + + + + + + | Calcium | 10.1 | 8.5 - 10.2 | [facility] | | | | | mg/dL | SACRED | | | | | | HEART | | | | | | MEDICAL | | | | | | CENTER | | | | | | LABORATORY | | | | | | CERNER | | + + + + + + | Anion Gap | 12 | 5 - 16 mmol/L | [facility] | | | | | | SACRED | | | | | | HEART | | | | | | MEDICAL | | | | | | CENTER | | | | | | LABORATORY | | | | | | CERNER | | + + + + + + | Albumin | 4.9 (H) | 3.3 - 4.8 g/dL | [facility] | | | | | | SACRED | | | | | | HEART | | | | | | MEDICAL | | | | | | CENTER | | | | | | LABORATORY | | | | | | CERNER | | + + + + + + | BUN | 18 | 8 - 25 mg/dL | [facility] | | | | | | SACRED | | | | | | HEART | | | | | | MEDICAL | | | | | | CENTER | | | | | | LABORATORY | | | | | | CERNER | | + + + + + + | Creatinine | 0.80 | 0.50 - 1.00 | [facility] | | | | | mg/dL | SACRED | | | | | | HEART | | | | | | MEDICAL | | | | | | CENTER | | | | | | LABORATORY | | | | | | CERNER | | + + + + + + | Glucose | 138 (H) | 65 - 99 mg/dL | [facility] | | | | | | SACRED | | | | | | HEART | | | | | | MEDICAL | | | | | | CENTER | | | | | | LABORATORY | | | | | | CERNER | | + + + + + + | Total | 8.2 (H) | 6.1 - 7.8 g/dL | [facility] | | | Protein | | | SACRED | | | | | | HEART | | | | | | MEDICAL | | | | | | CENTER | | | | | | LABORATORY | | | | | | CERNER | | + + + + + + | Alkaline | 161 (H) | 35 - 115 U/L | [facility] | | | Phosphatase | | | SACRED | | | | | | HEART | | | | | | MEDICAL | | | | | | CENTER | | | | | | LABORATORY | | | | | | CERNER | | + + + + + + | ALT | 20 | 10 - 65 U/L | [facility] | | | | | | SACRED | | | | | | HEART | | | | | | MEDICAL | | | | | | CENTER | | | | | | LABORATORY | | | | | | CERNER | | + + + + + + | AST | 24 | 10 - 45 U/L | [facility] | | | | | | [facility]CR[facility] | | | | | | HEART | | | | | | MEDICAL | | | | | | CENTER | | | | | | LABORATORY | | | | | | CERNER | | + + + + + + | Bilirubin | 0.4 | 0.2 - 1.1 mg/dL | [facility] | | | Total | | | SACRED | | | | | | HEART | | | | | | MEDICAL | | | | | | CENTER | | | | | | LABORATORY | | | | | | CERNER | | + + + + + + | Estimated | 79 (L)Comment: eGFR<60 | >=90 | [facility] | | | GFR | consistent with impaired | mL/min/1.73m2 | SACRED | | | | kidney | | HEART | | | | function.Performed by | | MEDICAL | | | | [facility] [address] | | CENTER | | | | [place] [address] | | LABORATORY | | | | | | CERNER | | + + + + + + + + | Specimen | + + | Blood specimen | | (specimen) | + + + + + + + | Performing | Address | City/State/Zipcode | Phone Number | | Organization | | | | + + + + + | [facility] | [address] | [place] [address] | | | [facility] | | | | | [place] | | | | + + + + + CBC with Differential (06/07/2018 9:10 AM PDT) + + + +------- ------+ + | Component | Value | Ref Range | Perfor med | Pathologist | | | | | At | Signature | + + + +------- ------+ + | WBC | 11.6 (H) | 3.8 - 11.0 K/uL | [facility] | | | | | | [facility] | | | | | | HEART | | | | | | MEDICA L | | | | | | CENTER | | | | | | LABORA TORY | | | | | | CERNER | | + + + +------- ------+ + | RBC | 5.06 | 3.70 - 5.10 | [facility] | | | | | M/uL | [facility]CRED | | | | | | HEART | | | | | | MEDICA L | | | | | | CENTER | | | | | | LABORA TORY | | | | | | CERNER | | + + + +------- ------+ + | Hemoglobin | 15.1 | 11.3 - 15.5 | [facility] | | | | | g/dL | SACRED | | | | | | HEART | | | | | | MEDICA L | | | | | | CENTER | | | | | | LABORA TORY | | | | | | CERNER | | + + + +------- ------+ + | Hct | 44.3 | 34.0 - 46.0 % | [facility] | | | | | | [facility]CR[facility] | | | | | | HEART | | | | | | MEDICA L | | | | | | CENTER | | | | | | LABORA TORY | | | | | | CERNER | | + + + +------- ------+ + | MCV | 87.5 | 80.0 - 100.0 fL | [facility] | | | | | | [facility]CR[facility] | | | | | | HEART | | | | | | MEDICA L | | | | | | CENTER | | | | | | LABORA TORY | | | | | | CERNER | | + + + +------- ------+ + | MCH | 29.7 | 27.0 - 34.0 pg | [facility] | | | | | | [facility]CR[facility] | | | | | | HEART | | | | | | MEDICA L | | | | | | CENTER | | | | | | LABORA TORY | | | | | | CERNER | | + + + +------- ------+ + | MCHC | 34.0 | 32.0 - 35.5 | [facility] | | | | | g/dL | SACRED | | | | | | HEART | | | | | | MEDICA L | | | | | | CENTER | | | | | | LABORA TORY | | | | | | CERNER | | + + + +------- ------+ + | RDW-CV | 15.5 | 11.0 - 15.5 % | [facility] | | | | | | [facility]CR[facility] | | | | | | HEART | | | | | | MEDICA L | | | | | | CENTER | | | | | | LABORA TORY | | | | | | CERNER | | + + + +------- ------+ + | Platelet | 431 (H) | 150 - 400 K/uL | [facility] | | | Count | | | SACRED | | | | | | HEART | | | | | | [facility] | | | | | | [facility]ENTER | | | | | | LABORA TORY | | | | | | [facility] | | + + + +------- ------+ + | MPV | 7.0 (L) | 7.5 - 11.2 fL | [facility] | | | | | [facility] | [facility] | | | | | | [facility] | | | | | | [facility] | | | | | | LABORA TORY | | | | | | [facility] | | + + + +------- ------+ + | % | 84.4 (H) | 40.0 - 75.0 % | [facility] | | | Neutrophils | | | [facility] | | | | | [facility] | | | | | | [facility] | | | | | | [facility]ENTER | | | | | | LABORA TORY | | | | | | [facility] | | + + + +------- ------+ + | % | 12.9 (L) | 15.0 - 48.0 % | [facility] | | | Lymphocytes | | | [facility] | [facility] | | [facility] | | | | | | [facility] | | | | | | [facility] | | | | | | LABORA TORY | | | | | | [facility] | | + + + +------- ------+ + | % Monocytes | 2.3 | 0.0 - 12.0 % | [facility] | | [facility] | [facility] | [facility] | | | | | | [facility] | | | | | | [facility] | | | | | | LABORA TORY | | | | | | [facility] | | + + + +------- ------+ + | % | 0.1 | 0.0 - 7.0 % | [facility] | | | Eosinophils | | | [facility] | | | | | [facility] | | | | | | [facility] | | | | | | [facility] | | | | | | LABORA TORY | | | | | | [facility] | | + + + +------- ------+ + | % Basophils | 0.3 | 0.0 - 2.0 % | [facility] | | | [facility] | [facility] | | | | | | [facility] | | | | | | [facility] | | | | | | LABORA TORY | | | | | | [facility] | | + + + +------- ------+ + | Absolute | 9.80 (H) | 1.90 - 7.40 | [facility] | | | Neutrophils | | K/uL | [facility] | | | | | [facility] | | | | | | [facility] | | | | | | [facility]ENTER | | | | | | LABORA TORY | | | | | | [facility] | | + + + +------- ------+ + | Absolute | 1.50 | 1.00 - 3.90 | [facility] | | | Lymphocytes | | K/uL | [facility] | | | | | [facility] | | | | | | [facility] | | | | | | CENTER | | | | | | LABORA TORY | | | | | | [facility] | | + + + +------- ------+ + | Absolute | 0.27 | 0.00 - 0.80 | [facility] | | | Monocytes | | K/uL | [facility] | | | | | [facility] | | | | | | [facility] | | | | | | [facility]ENTER | | | | | | LABORA TORY | | | | | | [facility] | | + + + +------- ------+ + | Absolute | 0.01 | 0.00 - 0.50 | [facility] | | | Eosinophils | | K/uL | [facility] | | | | | | [facility] | | | | | | [facility] | | | | | | CENTER | | | | | | LABORA TORY | | | | | | [facility] | | + + + +------- ------+ + | Absolute | 0.03Comment: Performed | 0.00 - 0.10 | [facility] | | | Basophils | by [place] [id number] | K/uL | [facility] | | | | [place] [address] | | HEART | | | |Performed by [facility] [address], [place] [address] | | [facility] | | | | | | CENTER | | | | | | LABORA TORY | | | | | | [facility] | | + + + +------- ------+ + + + | Specimen | + + | Blood specimen | | (specimen) | + + + + + + + | Performing | Address | City/State/Zipcode | Phone Number | | Organization | | | | + + + + + | [facility] | [address] | [place] [address] | | | [facility] | | | | | [facility] | | | | + + + + + Extra Hold Tube(s) (06/07/2018 9:10 AM PDT) + + + + + + | Component | Value | Ref Range | Performed | Pathologist | | | | | At | Signature | + + + + + + | Extra Tube | DrawnComment: Performed | | [facility] | | | | by [facility] [address], | | [facility] | | | | [place] [address] | | HEART | | | |Performed by [facility] [address], [place] [address] | | MEDICAL | | | | | | CENTER | | | | | | LABORATORY | | | | | | CERNER | | + + + + + + + + | Specimen | + + | Blood specimen | | (specimen) | + + + + + + + | Performing | Address | City/State/Zipcode | Phone Number | | Organization | | | | + + + + + | [facility] | [address] | [place] [address] | | | [facility] | | | | | LABORATORY [facility] | | | | + + + + + CK Total (06/07/2018 9:03 AM PDT) + + + + -+ + | Component | Value | Ref Range | Performed | Pathologist | | | | | At | Signature | + + + + -+ + | CK TOTAL | 84Comment: Performed by | 30 - 240 U/L | [facility] | | | | [facility] [address], | | [facility] | | | | [place] | | HEART | | | |Performed by [facility] [address], [place] [address] | | MEDICAL | | | | | | CENTER | | | | | | LABORATORY | | | | | | CERNER | | + + + + -+ + + + | Specimen | + + | Blood specimen | | (specimen) | + + + + + + + | Performing | Address | City/State/Zipcode | Phone Number | | Organization | | | | + + + + + | [facility] | [address] | [place] [address] | | | [facility] | | | | | LABORATORY [facility] | | | | + + + + + Urinalysis with Microscopic with Culture if Indicated (06/07/2018 9:03 AM PDT) + + + + + + | Component | Value | Ref Range | Performed | Pathologist | | | | | At | Signature | + + + + + + | Color | Yellow | | [facility] | | | | | [facility] | | | | | | HEART | | | | | | MEDICAL | | | | | | CENTER | | | | | | LABORATORY | | | | | | [facility] | | + + + + + + | Clarity | Hazy | | [facility] | | | | [facility] | | | | | | HEART | | | | | | MEDICAL | | | | | | CENTER | | | | | | LABORATORY | | | | | | [facility] | | + + + + + + | Glucose, | Negative | Negative | [facility] | | | Urine | | | [facility] | | | | | | HEART | | | | | | MEDICAL | | | | | | CENTER | | | | | | LABORATORY | | | | | | [facility] | | + + + + + + | Ketones, | Negative | Negative | [facility] | | | Urine | | | [facility] | | | | | | HEART | | | | | | MEDICAL | | | | | | CENTER | | | | | | LABORATORY | | | | | | [facility] | | + + + + + + | Bilirubin, | Negative | Negative | [facility] | | | Urine | | | [facility] | | | | | | HEART | | | | | | MEDICAL | | | | | | CENTER | | | | | | LABORATORY | | | | | | [facility] | | + + + + + + | Urobilinoge | <2.0 | <2.0 mg/dL | [facility] | | | n, Urine | | | [facility] | | | | | | HEART | | | | | | MEDICAL | | | | | | CENTER | | | | | | LABORATORY | | | | | | [facility] | | + + + + + + | Specific | 1.020 | 1.001 - 1.030 | [facility] | | | [place] | | | [facility] | | | | | | HEART | | | | | | MEDICAL | | | | | | CENTER | | | | | | LABORATORY | | | | | | [facility] | | + + + + + + | pH, Urine | 7.0 | 5.0 - 7.5 | [facility] | | | | | | [facility] | | | | | | HEART | | | | | | MEDICAL | | | | | | CENTER | | | | | | LABORATORY | | | | | | [facility] | | + + + + + + | Protein, | 300 (A) | Negative mg/dL | [facility] | | | Urine | | | [facility] | | | | | | HEART | | | | | | MEDICAL | | | | | | CENTER | | | | | | LABORATORY | | | | | | CERNER | | + + + + + + | Nitrite, | Negative | Negative | [facility] | | | Urine | | | [facility] | | | | | | HEART | | | | | | MEDICAL | | | | | | CENTER | | | | | | LABORATORY | | | | | | [facility] | | + + + + + + | Blood, | Moderate (A) | Negative | [facility] | | | Urine | | | [facility] | | | | | | HEART | | | | | | MEDICAL | | | | | | CENTER | | | | | | LABORATORY | | | | | | C[facility] | | + + + + + + | Leukocyte | Trace (A) | Negative | [facility] | | | Esterase, | | | [facility] | | | Urine | | | HEART | | | | | | MEDICAL | | | | | | CENTER | | | | | | LABORATORY | | | | | | CERNER | | + + + + + + | SQUAMOUS | Few | | [facility] | | | EPITHELIAL | | | [facility] | | | UA | | | HEART | | | | | | MEDICAL | | | | | | CENTER | | | | | | LABORATORY | | | | | | C[facility] | | + + + + + + | WBC UA | 3 | 0 - 5 /hpf | [facility] | | | | [facility] | | | | | | [facility] | | | | | | MEDICAL | | | | | | CENTER | | | | | | LABORATORY | | | | | | [facility] | | + + + + + + | RBC UA | 10 (H) | 0 - 5 | [facility] | | | | | | [facility] | | | | | | HEART | | | | | | MEDICAL | | | | | | CENTER | | | | | | LABORATORY | | | | | | [facility] | | + + + + + + | BACTERIA UA | Present (A) | | [facility] | | | | [facility] | | | | | | HEART | | | | | | MEDICAL | | | | | | CENTER | | | | | | LABORATORY | | | | | | [facility] | | + + + + + + | AMORPHOUS | None Present | | [facility] | | | CRYSTALS | | | [facility] | | | | | | HEART | | | | | | MEDICAL | | | | | | CENTER | | | | | | LABORATORY | | | | | | [facility]ERN[facility] | | + + + + + + | MUCUS UA | None PresentComment: | | [facility] | | | | Less than 2 mL | | [facility] | | | | submitted. Microscopic | | HEART | | | | done on [facility] | | MEDICAL | | | | Specimen. Reference | | CENTER | | | | ranges for urine | | LABORATORY | | | | microscopic exam apply | | C[facility]ER | | | | only to 10 mL specimens | | | | | | that have been | | | | | | centrifuged. Results | | | | | | from specimens with less | | | | | | than 10 mL, or | | | | | | uncentrifuged specimens | | | | | | will have decreased | | | | | | sensitivity. | | | | + + + + + + | URINE | Clean catchComment: | | [facility] | | | SOURCE | Performed by [facility] [address] | | [facility] | | | | [address], [place] | | HEART | | | | [id number] | | MEDICAL | | | | | | CENTER | | | | | | LABORATORY | | | | | | CERNER | | + + + + + + + + | Specimen | + + | Urine specimen | | (specimen) - Urine | | specimen obtained by | | clean catch | | procedure (specimen) | + + + + + + + | Performing | Address | City/State/Zipcode | Phone Number | | Organization | | | | + + + + + | [facility] | [address] | [place] [address] | | | [facility] | | | | | [place] | | | | + + + + + ARRHYTHMIA MONITOR - EXTERNAL SCAN (06/07/2018 12:00 AM PDT) + + + | Narrative | Performed At | + + + | Ordered by an | | | unspecified provider. | | + + + documented in this encounter Visit Diagnoses + + | Diagnosis | + + | ASHD (arteriosclerotic heart disease) - Primary Coronary atherosclerosis of | | unspecified type of vessel, [place] or graft | + + | NSTEMI (non-ST elevated myocardial infarction) (HCC) Acute myocardial infarction, | | subendocardial infarction, episode of care unspecified | + + | Methamphetamine abuse (HCC) Nondependent amphetamine or related acting | | sympathomimetic abuse, unspecified | + + | Opiate abuse, continuous (HCC) Opioid abuse, continuous | + + | Marijuana abuse Cannabis abuse, unspecified | + + | Non-intractable cyclical vomiting with nausea | + + | Esophagitis Esophagitis, unspecified | + + | Chest pain syndrome Chest pain, unspecified | + + | Essential hypertension Unspecified essential hypertension | + + | Methamphetamine use (HCC) Nondependent amphetamine or related acting sympathomimetic | | abuse, unspecified | + + | Marijuana use Cannabis abuse, unspecified | + + | Troponin level elevated Other abnormal blood chemistry | + + | Ischemic cardiomyopathy Other specified forms of chronic ischemic heart disease | + + | Chronic GERD | + + | Elevated troponin level Other abnormal blood chemistry | + + | Stress hyperglycemia Other abnormal blood chemistry | + + | 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 | + + | Polysubstance abuse (HCC) Other, mixed, or unspecified nondependent drug abuse, | | unspecified | + + | S/P CABG x 3 Postsurgical aortocoronary bypass status | + + | Non-intractable vomiting with nausea | + + | Hypertension Unspecified essential hypertension | + + | Smoker - Daily Tobacco use disorder | + + documented in this encounter Administered Medications + +---------+ +--------+-------+------+ | Medication Order | MAR | Action | Dose | Rate | Site | | | Action | Date | | | | + +---------+ +--------+-------+------+ | acetaminophen (OFIRMEV) IV | New Bag | 06/12/20 | 650 mg | 260 | | | syringe (10 mg/mL) 650 mg 650 | | 18 5:39 | | mL/hr | | | mg, Intravenous, Administer over | | PM PDT | | | | | 15 Minutes, EVERY 6 HOURS PRN, | | | | | | | Mild Pain, Starting [facility] 06/11/18 at | | | | | | | 1742, For 24 hours, Maximum | | | | | | | allowed order duration of 24 | | | | | | | hours per System P&T, For PDA | | | | | | | Closure? No, Is patient is NPO or | | | | | | | without functional GI tract? | | | | | | | YES, Patient has contraindication | | | | | | | to ketorolac due to: Acute | | | | | | | bleeding/post major surgery with | | | | | | | high risk of post-op bleed, | | | | | | | Rectal APAP not an option or | | | | | | | ineffective? YES | | | | | | + +---------+ +--------+-------+------+ +---------+ +--------+-------+---+ | New Bag | 06/12/20 | 650 mg | 260 | | | | 18 8:12 | | mL/hr | | | | AM PDT | | | | +---------+ +--------+-------+---+ | New Bag | 06/12/20 | 650 mg | 260 | | | | 18 12:28 | | mL/hr | | | | AM PDT | | | | +---------+ +--------+-------+---+ +---+---+ | | | +---+---+ + +-------+ +--------+---+---+ | acetaminophen (TYLENOL) tablet | Given | 06/10/20 | 500 mg | | | | 500 mg 500 mg, Oral, EVERY 6 | | 18 11:51 | | | | | HOURS PRN, Pain, Starting Sun | | PM PDT | | | | | 06/07/18 at 1456 | | | | | | + +-------+ +--------+---+---+ +-------+ +--------+---+---+ | Given | 06/10/20 | 500 mg | | | | | 18 5:49 | | | | | | PM PDT | | | | +-------+ +--------+---+---+ | Given | 06/10/20 | 500 mg | | | | | 18 11:14 | | | | | | AM PDT | | | | +-------+ +--------+---+---+ +---+---+ | | | +---+---+ + +-------+ +--------+---+---+ | acetaminophen (TYLENOL) tablet | Given | 06/15/20 | 650 mg | | | | 650 mg 650 mg, Oral, EVERY 6 | | 18 2:20 | | | | | HOURS (4 times per day), First | | PM PDT | | | | | dose on 06/13/18 at 0830 | | | | | | + +-------+ +--------+---+---+ +-------+ +--------+---+---+ | Given | 06/15/20 | 650 mg | | | | | 18 8:29 | | | | | | AM PDT | | | | +-------+ +--------+---+---+ | Given | 06/15/20 | 650 mg | | | | | 18 3:21 | | | | | | AM PDT | | | | +-------+ +--------+---+---+ +---+---+ | | | +---+---+ + +---------+ +--------+-------+---+ | albumin 5% IVPB 12.5 g 12.5 g, | New Bag | 06/12/20 | 12.5 g | 250 | | | Intravenous, Administer over 1 | | 18 5:15 | | mL/hr | | | Hours, PRN, see PRN parameter, | | AM PDT | | | | | Starting [facility] 06/11/18 at 1635, Give | | | | | | | up to 1.5l of 5% Albumin, Give | | | | | | | PRN SBP Less than: 90 | | | | | | + +---------+ +--------+-------+---+ +---------+ +--------+-------+---+ | New Bag | 06/11/20 | 12.5 g | 250 | | | | 18 6:05 | | mL/hr | | | | PM PDT | | | | +---------+ +--------+-------+---+ | New Bag | 06/11/20 | 12.5 g | 250 | | | | 18 5:39 | | mL/hr | | | | PM PDT | | | | +---------+ +--------+-------+---+ +---+---+ | | | +---+---+ + +-------+ +--------+---+---+ | albuterol 5 mg/mL concentrated | Given | 06/10/20 | 2.5 mg | | | | nebulizer solution 2.5 mg 2.5 | | 18 9:29 | | | | | mg, Nebulization, RT Once, Wed | | AM PDT | | | | | 06/10/18 at 0945, For 1 dose, RT | | | | | | | will administer., | | | | | | + +-------+ +--------+---+---+ +---+---+ | | | +---+---+ + +-------+ +--------+---+---+ | aluminum & magnesium | Given | 06/07/20 | 45 mLs | | | | hydroxide-simethicone (MAALOX | | 18 9:08 | | | | | PLUS REGULAR STRENGTH) 200-200-20 | | AM PDT | | | | | mg/5 mL 30 mL, lidocaine | | | | | | | (XYLOCAINE) 2% 15 mL liquid 45 | | | | | | | mL, Oral, ONCE, 06/07/18 at | | | | | | | 0905, For 1 dose, Mix Maalox Plus | | | | | | | 30 ml, Lidocaine viscous 2% 20 | | | | | | | ml to make standard mixture., | | | | | | + +-------+ +--------+---+---+ +---+---+ | | | +---+---+ + +-------+ +--------+---+---+ | aluminum & magnesium | Given | 06/15/20 | 30 mLs | | | | hydroxide-simethicone (MAALOX | | 18 2:28 | | | | | PLUS REGULAR STRENGTH) 200-200-20 | | PM PDT | | | | | mg/5 mL suspension 30 mL 30 mL, | | | | | | | Oral, EVERY 4 HOURS PRN, | | | | | | | Indigestion, Starting 06/15/18 | | | | | | | at 1012, Shake well., | | | | | | + +-------+ +--------+---+---+ +-------+ +--------+---+---+ | Given | 06/15/20 | 30 mLs | | | | | 18 10:17 | | | | | | AM PDT | | | | +-------+ +--------+---+---+ +---+---+ | | | +---+---+ + +-------+ +--------+---+---+ | aspirin chewable tablet 324 mg | Given | 06/07/20 | 324 mg | | | | 324 mg, Oral, ONCE, 06/07/18 | | 18 12:55 | | | | | at 1140, For 1 dose, chew, | | PM PDT | | | | + +-------+ +--------+---+---+ +---+---+ | | | +---+---+ + +-------+ +--------+---+---+ | aspirin chewable tablet 324 mg | Given | 06/15/20 | 324 mg | | | | 324 mg, Oral, DAILY, First dose | | 18 8:29 | | | | | on [facility] 06/11/18 at 1700, If unable | | AM PDT | | | | | to take po tablet - may give | | | | | | | rectal aspirin, if ordered., | | | | | | + +-------+ +--------+---+---+ +-------+ +--------+---+---+ | Given | 06/14/20 | 324 mg | | | | | 18 8:24 | | | | | | AM PDT | | | | +-------+ +--------+---+---+ | Given | 06/13/20 | 324 mg | | | | | 18 8:40 | | | | | | AM PDT | | | | +-------+ +--------+---+---+ + +---+ | | | + +---+ | aspirin EC tablet 325 mg 325 | | | mg, Oral, DAILY, First dose on | | | 06/16/18 at 0900, Do not cut | | | or crush., | | + +---+ | | | + +---+ + +-------+ +-------+---+---+ | aspirin EC tablet 81 mg 81 mg, | Given | 06/09/20 | 81 mg | | | | Oral, DAILY, First dose on Mon | | 18 11:14 | | | | | 06/08/18 at 0900, Do not cut or | | AM PDT | | | | | crush., | | | | | | + +-------+ +-------+---+---+ +-------+ +-------+---+---+ | Given | 06/08/20 | 81 mg | | | | | 18 8:25 | | | | | | AM PDT | | | | +-------+ +-------+---+---+ +---+---+ | | | +---+---+ + +-------+ +-------+---+---+ | atorvaSTATin (LIPITOR) tablet | Given | 06/10/20 | 40 mg | | | | 40 mg 40 mg, Oral, NIGHTLY, | | 18 8:40 | | | | | First dose on 06/08/18 at 2100 | | PM PDT | | | | + +-------+ +-------+---+---+ +-------+ +-------+---+---+ | Given | 06/09/20 | 40 mg | | | | | 18 8:37 | | | | | | PM PDT | | | | +-------+ +-------+---+---+ | Given | 06/08/20 | 40 mg | | | | | 18 8:37 | | | | | | PM PDT | | | | +-------+ +-------+---+---+ +---+---+ | | | +---+---+ + +-------+ +-------+---+---+ | atorvaSTATin (LIPITOR) tablet | Given | 06/14/20 | 40 mg | | | | 40 mg 40 mg, Oral, NIGHTLY, | | 18 9:29 | | | | | First dose on [facility] 06/11/18 at 2100 | | PM PDT | | | | + +-------+ +-------+---+---+ +-------+ +-------+---+---+ | Given | 06/13/20 | 40 mg | | | | | 18 8:41 | | | | | | PM PDT | | | | +-------+ +-------+---+---+ | Given | 06/12/20 | 40 mg | | | | | 18 8:44 | | | | | | PM PDT | | | | +-------+ +-------+---+---+ +---+---+ | | | +---+---+ + +---------+ +---+---+---+ | balanced electrolytes in water | New Bag | 06/11/20 | | | | | (PLASMALYTE-148/NORMOSOL-R) | | 18 9:34 | | | | | infusion at 10-100 mL/hr, | | AM PDT | | | | | Intravenous, CONTINUOUS, Starting | | | | | | | [facility] 06/11/18 at 0830, Please | | | | | | | insert 14 G or 16 G PIV for fluid | | | | | | | administration. TKO. Use this | | | | | | | in preference to NS or LR., | | | | | | | Pre-op | | | | | | + +---------+ +---+---+---+ +---------+ +---+ +--------+ | New Bag | 06/11/20 | | 15 mL/hr | Right | | | 18 8:52 | | | Arm | | | AM PDT | | | | +---------+ +---+ +--------+ +---+---+ | | | +---+---+ + + + +---+ +---+ | balanced electrolytes in water | Rate/Dos | 06/12/20 | | 15 mL/hr | | | (PLASMALYTE-148/NORMOSOL-R) | e Verify | 18 9:00 | | | | | infusion at 15 mL/hr, | | AM PDT | | | | | Intravenous, CONTINUOUS, Starting | | | | | | | [facility] 06/11/18 at 1700 | | | | | | + + + +---+ +---+ + + +---+ +---+ | Rate/Dose Verify | 06/12/20 | | 15 mL/hr | | | | 18 8:00 | | | | | | AM PDT | | | | + + +---+ +---+ | Rate/Dose Verify | 06/12/20 | | 15 mL/hr | | | | 18 7:00 | | | | | | AM PDT | | | | + + +---+ +---+ +---+---+ | | | +---+---+ + +-------+ + +---+---+ | calcium carbonate (TUMS) | Given | 06/14/20 | 1,000 mg | | | | chewable tablet 1,000 mg 1,000 | | 18 12:01 | | | | | mg, Oral, EVERY 4 HOURS PRN, | | PM PDT | | | | | Indigestion, Heartburn, Starting | | | | | | | 06/14/18 at 1109, 500mg calcium | | | | | | | carbonate = 200mg elemental | | | | | | | calcium, | | | | | | + +-------+ + +---+---+ +---+---+ | | | +---+---+ + +-------+ +---------+---+---+ | carvedilol (COREG) tablet 12.5 | Given | 06/10/20 | 12.5 mg | | | | mg 12.5 mg, Oral, 2 TIMES DAILY | | 18 8:18 | | | | | WITH BREAKFAST & DINNER, First | | AM PDT | | | | | dose (after last modification) on | | | | | | | 06/08/18 at 1700 | | | | | | + +-------+ +---------+---+---+ +-------+ +---------+---+---+ | Given | 09/04/20 | 12.5 mg | | | | | 18 4:42 | | | | | | PM PDT | | | | +-------+ +---------+---+---+ | Given | 06/09/20 | 12.5 mg | | | | | 18 11:15 | | | | | | AM PDT | | | | +-------+ +---------+---+---+ +---+---+ | | | +---+---+ + +-------+ + +---+---+ | carvedilol (COREG) tablet 3.125 | Given | 06/15/20 | 3.125 mg | | | | mg 3.125 mg, Oral, 2 TIMES | | 18 4:08 | | | | | DAILY WITH BREAKFAST & DINNER, | | PM PDT | | | | | First dose (after last | | | | | | | modification) on 06/14/18 at | | | | | | | 0815, HOLD SBP <100 and or HR | | | | | | | <60, | | | | | | + +-------+ + +---+---+ +-------+ + +---+---+ | Given | 06/15/20 | 3.125 mg | | | | | 18 8:29 | | | | | | AM PDT | | | | +-------+ + +---+---+ | Given | 06/14/20 | 3.125 mg | | | | | 18 4:29 | | | | | | PM PDT | | | | +-------+ + +---+---+ +---+---+ | | | +---+---+ + +-------+ +---------+---+---+ | carvedilol (COREG) tablet 6.25 | Given | 06/08/20 | 6.25 mg | | | | mg 6.25 mg, Oral, 2 TIMES DAILY | | 18 10:22 | | | | | WITH BREAKFAST & DINNER, First | | AM PDT | | | | | dose on 06/07/18 at 1700 | | | | | | + +-------+ +---------+---+---+ +-------+ +---------+---+---+ | Given | 06/07/20 | 6.25 mg | | | | | 18 4:13 | | | | | | PM PDT | | | | +-------+ +---------+---+---+ +---+---+ | | | +---+---+ + +-------+ +---------+---+---+ | carvedilol (COREG) tablet 6.25 | Given | 06/08/20 | 6.25 mg | | | | mg 6.25 mg, Oral, ONCE, Mon | | 18 10:21 | | | | | 06/08/18 at 1030, For 1 dose, Extra | | AM PDT | | | | | 6.25 mg 06/08/18 AM to make total | | | | | | | 12.5 mg this AM, | | | | | | + +-------+ +---------+---+---+ +---+---+ | | | +---+---+ + +-------+ +---------+---+---+ | carvedilol (COREG) tablet 6.25 | Given | 06/13/20 | 6.25 mg | | | | mg 6.25 mg, Oral, 2 TIMES DAILY | | 18 8:40 | | | | | WITH BREAKFAST & DINNER, First | | AM PDT | | | | | dose on Fri06/12/18 at 1030 | | | | | | + +-------+ +---------+---+---+ +-------+ +---------+---+---+ | Given | 06/12/20 | 6.25 mg | | | | | 18 4:07 | | | | | | PM PDT | | | | +-------+ +---------+---+---+ | Given | 06/12/20 | 6.25 mg | | | | | 18 12:30 | | | | | | PM PDT | | | | +-------+ +---------+---+---+ +---+---+ | | | +---+---+ + +---------+ +-----+ +---+ | ceFAZolin (ANCEF, KEFZOL) 100 | New Bag | 06/12/20 | 2 g | 40 mL/hr | | | mg/mL IV syringe 2 g 2 g, | | 18 3:20 | | | | | Intravenous, Administer over 30 | | AM PDT | | | | | Minutes, EVERY 8 HOURS INTERVAL, | | | | | | | First dose on [facility] 06/11/18 at 1900, | | | | | | | For 2 doses, Post-op/Phase II, | | | | | | | Indications: Surgical Prophylaxis | | | | | | + +---------+ +-----+ +---+ +---------+ +-----+ +---+ | New Bag | 06/11/20 | 2 g | 40 mL/hr | | | | 18 7:25 | | | | | | PM PDT | | | | +---------+ +-----+ +---+ +---+---+ | | | +---+---+ + +-------+ +--------+---+---+ | cefdinir (OMNICEF) capsule 300 | Given | 06/10/20 | 300 mg | | | | mg 300 mg, Oral, 2 TIMES DAILY, | | 18 8:40 | | | | | First dose on Fri06/09/18 at 0900, | | PM PDT | | | | | Indications: UTI - LOWER | | | | | | + +-------+ +--------+---+---+ +-------+ +--------+---+---+ | Given | 06/10/20 | 300 mg | | | | | 18 8:18 | | | | | | AM PDT | | | | +-------+ +--------+---+---+ | Given | 06/09/20 | 300 mg | | | | | 18 8:36 | | | | | | PM PDT | | | | +-------+ +--------+---+---+ +---+---+ | | | +---+---+ + +---------+ +-----+-------+---+ | cefTRIAXone (ROCEPHIN) 1 g in | New Bag | 06/08/20 | 1 g | 100 | | | sodium chloride 0.9% 50 mL IVPB | | 18 8:24 | | mL/hr | | | 1 g, Intravenous, Administer over | | AM PDT | | | | | 30 Minutes, EVERY 24 HOURS | | | | | | | (Daily), First dose on 06/07/18 | | | | | | | at 1900, Activate system and mix | | | | | | | before use., Indications: | | | | | | | Urinary Tract Infection | | | | | | + +---------+ +-----+-------+---+ +---------+ +-----+-------+---+ | New Bag | 06/07/20 | 1 g | 100 | | | | 18 7:04 | | mL/hr | | | | PM PDT | | | | +---------+ +-----+-------+---+ +---+---+ | | | +---+---+ + + + +---------+---------+---+ | clevidipine (CLEVIPREX) 0.5 | Restarte | 06/11/20 | 2 mg/hr | 4 mL/hr | | | mg/mL infusion 0-32 mg/hr (0-64 | d | 18 6:43 | | | | | mL/hr), at 0-64 mL/hr, | | PM PDT | | | | | Intravenous, TITRATED, Starting | | | | | | | [facility] 06/11/18 at 1700, Max dose 1000 | | | | | | | mL (500 mg) in a 24 hour | | | | | | | period., Initial dose: 0 mg/hr, | | | | | | | Goal: SBP less than 160, Other, | | | | | | | Other goal: SBP<140, | | | | | | | Post-op/Phase II | | | | | | + + + +---------+---------+---+ + + +---------+---------+---+ | Rate/Dose Change | 06/11/20 | 4 mg/hr | 8 mL/hr | | | | 18 6:22 | | | | | | PM PDT | | | | + + +---------+---------+---+ | Restarted | 06/11/20 | 2 mg/hr | 4 mL/hr | | | | 18 6:17 | | | | | | PM PDT | | | | + + +---------+---------+---+ +---+---+ | | | +---+---+ + + + + +-------+---+ | dexmedetomidine (PRECEDEX) 4 | Rate/Dos | 06/11/20 | 0.3 | 4.8 | | | mcg/mL in sodium chloride 0.9% | e Change | 18 10:26 | mcg/kg/h | mL/hr | | | 100 mL infusion 0.2-1.5 | | PM PDT | r | | | | mcg/kg/hr | | | | | | | 64.5 kg Adjusted weight | | | | | | | (3.225-24.1875 mL/hr, rounded to | | | | | | | 3.2-24.2 mL/hr), at 3.2-24.2 | | | | | | | mL/hr, Intravenous, TITRATED, | | | | | | | Starting [facility] 06/11/18 at 1715, | | | | | | | Initial dose: 0.4 mcg/kg/hr, | | | | | | | Goal: RASS -2 to 0, Call provider | | | | | | | if: Hold infusion if HR less | | | | | | | than 55. SBP less than 90, or | | | | | | | MAP less than 60 and contact MD | | | | | | + + + + +-------+---+ + + + +-------+---+ | Rate/Dose Verify | 06/11/20 | 0.6 | 9.7 | | | | 18 10:00 | mcg/kg/h | mL/hr | | | | PM PDT | r | | | + + + +-------+---+ | Rate/Dose Change | 06/11/20 | 0.6 | 9.7 | | | | 18 9:00 | mcg/kg/h | mL/hr | | | | PM PDT | r | | | + + + +-------+---+ +---+---+ | | | +---+---+ + +-------+ +---------+---+---+ | dipyridamole (PERSANTINE) 5 | Given | 06/09/20 | 36.2 mg | | | | mg/mL injection Starting Tue | | 18 9:20 | | | | | 18 at 0832, For 1 dose, | | AM PDT | | | | | Johanna Ngo : | | | | | | | micheal override, | | | | | | + +-------+ +---------+---+---+ +---+---+ | | | +---+---+ + +-------+ +--------+---+---+ | docusate sodium (COLACE) | Given | 06/15/20 | 100 mg | | | | capsule 100 mg 100 mg, Oral, 2 | | 18 8:34 | | | | | TIMES DAILY PRN, Constipation, | | AM PDT | | | | | Starting [facility] 06/11/18 at 1635, | | | | | | | First line agent for | | | | | | | constipation, | | | | | | + +-------+ +--------+---+---+ +-------+ +--------+---+---+ | Given | 06/12/20 | 100 mg | | | | | 18 8:44 | | | | | | PM PDT | | | | +-------+ +--------+---+---+ | Given | 06/12/20 | 100 mg | | | | | 18 5:00 | | | | | | AM PDT | | | | +-------+ +--------+---+---+ +---+---+ | | | +---+---+ + +-------+ +-------+---+---+ | famotidine (PEPCID) injection | Given | 06/07/20 | 20 mg | | | | 20 mg 20 mg, Intravenous, ONCE, | | 18 9:09 | | | | | 06/07/18 at 0905, For 1 dose, | | AM PDT | | | | | Dilute 2 mL of famotidine with 8 | | | | | | | mL of normal saline to a final | | | | | | | concentration of 2 mg/mL. | | | | | | | Administer ordered dose over a | | | | | | | period of at least 2 minutes., | | | | | | + +-------+ +-------+---+---+ +---+---+ | | | +---+---+ + +-------+ +-------+---+---+ | famotidine (PEPCID) tablet 20 | Given | 06/10/20 | 20 mg | | | | mg 20 mg, Oral, 2 TIMES DAILY, | | 18 8:40 | | | | | First dose on Fri06/10/18 at 2100, | | PM PDT | | | | | Pre-op | | | | | | + +-------+ +-------+---+---+ +---+---+ | | | +---+---+ + + + +--------+---------+---+ | fentaNYL in saline 5 mcg/mL | Rate/Dos | 06/12/20 | 10 | 2 mL/hr | | | infusion 0-250 mcg/hr (0-50 | e Change | 18 8:26 | mcg/hr | | | | mL/hr), at 0-50 mL/hr, | | AM PDT | | | | | Intravenous, TITRATED, Starting | | | | | | | Marycarmen 06/11/18 at 1700, Initial dose: | | | | | | | 0 mcg/hr, Goal: RASS -2 to 0, | | | | | | | Post-op/Phase II | | | | | | + + + +--------+---------+---+ + + +--------+---------+---+ | Rate/Dose Verify | 06/12/20 | 25 | 5 mL/hr | | | | 18 8:00 | mcg/hr | | | | | AM PDT | | | | + + +--------+---------+---+ | Rate/Dose Change | 06/12/20 | 25 | 5 mL/hr | | | | 18 7:00 | mcg/hr | | | | | AM PDT | | | | + + +--------+---------+---+ +---+---+ | | | +---+---+ + +-------+ +--------+---+---+ | ferrous sulfate tablet 325 mg | Given | 06/15/20 | 325 mg | | | | 325 mg, Oral, 2 TIMES DAILY WITH | | 18 4:08 | | | | | BREAKFAST & DINNER, First dose on | | PM PDT | | | | | 06/14/18 at 0930 | | | | | | + +-------+ +--------+---+---+ +-------+ +--------+---+---+ | Given | 06/15/20 | 325 mg | | | | | 18 8:29 | | | | | | AM PDT | | | | +-------+ +--------+---+---+ | Given | 06/14/20 | 325 mg | | | | | 18 4:29 | | | | | | PM PDT | | | | +-------+ +--------+---+---+ +---+---+ | | | +---+---+ + +-------+ +-------+---+---+ | furosemide (LASIX) injection 40 | Given | 06/14/20 | 40 mg | | | | mg 40 mg, Intravenous, DAILY, | | 18 8:26 | | | | | First dose on 06/13/18 at 1000, | | AM PDT | | | | | For 2 doses | | | | | | + +-------+ +-------+---+---+ +-------+ +-------+---+---+ | Given | 06/13/20 | 40 mg | | | | | 18 10:41 | | | | | | AM PDT | | | | +-------+ +-------+---+---+ +---+---+ | | | +---+---+ + +-------+ +--------+---+---+ | heparin 1,000 units/mL | Given | 06/10/20 | 2,000 | | | | injection 2,000-5,000 Units | | 18 9:18 | Units | | | | 2,000-5,000 Units, Intravenous, | | PM PDT | | | | | PRN, Protocol/Titration, Starting | | | | | | | 06/10/18 at 0041, CARDIAC DOSE | | | | | | | HEPARIN PROTOCOL INITIAL | | | | | | | heparin infusion dose 800 | | | | | | | units/hr (12 units/kg/hr, initial | | | | | | | rate max 1,000 units/hr). Draw | | | | | | | APTT from an IV site other than | | | | | | | heparin IV site 6 hours after | | | | | | | starting a heparin infusion. Do | | | | | | | not stop or adjust heparin | | | | | | | therapy during the first 12 hours | | | | | | | after thrombolytic therapy. Call | | | | | | | MD for aPTT > 130 seconds. PTT | | | | | | | Nomogram for ADJUSTING heparin | | | | | | | APTT < 45 seconds: Bolus 2,000 | | | | | | | units (30 units/kg. Max 2,000 | | | | | | | units) & increase rate by 250 | | | | | | | units/hr (4 units/kg/hr) Repeat | | | | | | | APTT 6 hr after change APTT | | | | | | | 45-56 seconds: Increase rate by | | | | | | | 150 units/hr (2 units/kg/hr) | | | | | | | Repeat APTT 6 hr after change | | | | | | | APTT 57-76 seconds (GOAL RANGE): | | | | | | | No bolus or rate change. | | | | | | | Repeat APTT 6 hours then QAM. | | | | | | | APTT 77-86 seconds: Decrease | | | | | | | rate by 50 units/hr (1 | | | | | | | unit/kg/hr) Repeat APTT 6 hr | | | | | | | after change APTT 87-98 seconds: | | | | | | | Stop infusion 30 minutes & | | | | | | | decrease rate by 150 units/hr (2 | | | | | | | units/kg/hr) Repeat APTT 6 hr | | | | | | | from the time infusion | | | | | | | stopped. APTT > 98 seconds: | | | | | | | Stop infusion 60 minutes & | | | | | | | decrease rate by 200 units/hr (3 | | | | | | | units/kg/hr) Repeat APTT 6 hr | | | | | | | from the time infusion | | | | | | | stopped. Use actual body weight | | | | | | | to calculate dose Round infusion | | | | | | | dose to nearest 50 units/hr. | | | | | | | Round bolus dose to nearest 100 | | | | | | | units., | | | | | | + +-------+ +--------+---+---+ +---+---+ | | | +---+---+ + +-------+ +--------+---+---+ | heparin 1,000 units/mL | Given | 06/10/20 | 3,900 | | | | injection 2,000-8,000 Units | | 18 12:55 | Units | | | | 2,000-8,000 Units, Intravenous, | | AM PDT | | | | | ONCE, 06/10/18 at 0100, For 1 | | | | | | | dose, Heparin Protocol - Cardiac | | | | | | | Dose Initial Bolus Give heparin | | | | | | | 3,900 units x1 (60 units/kg IV x | | | | | | | 1, round to nearest 100 units, | | | | | | | max 4000 units), | | | | | | + +-------+ +--------+---+---+ +---+---+ | | | +---+---+ + + + + + +---+ | heparin in half-normal saline | Rate/Dos | 06/11/20 | 1,000 | 20 mL/hr | | | 50 units/mL infusion 0-3,000 | e | 18 4:38 | Units/hr | | | | Units/hr (0-60 mL/hr), at 0-60 | Change-D | AM PDT | | | | | mL/hr, Intravenous, TITRATED, | ual Sign | | | | | | Starting 06/10/18 at 0100, | | | | | | | CARDIAC DOSE HEPARIN PROTOCOL | | | | | | | INITIAL heparin infusion dose 800 | | | | | | | units/hr (12 units/kg/hr, | | | | | | | initial rate max 1,000 units/hr). | | | | | | | Draw APTT from an IV site other | | | | | | | than heparin IV site 6 hours | | | | | | | after starting a heparin | | | | | | | infusion. Do not stop or adjust | | | | | | | heparin therapy during the first | | | | | | | 12 hours after thrombolytic | | | | | | | therapy. Call MD for aPTT > 130 | | | | | | | seconds. PTT Nomogram for | | | | | | | ADJUSTING heparin APTT < 45 | | | | | | | seconds: Bolus 2,000 units | | | | | | | (30 units/kg. Max 2,000 units) & | | | | | | | increase rate by 250 units/hr | | | | | | | (4 units/kg/hr) Repeat APTT 6 | | | | | | | hr after change APTT 45-56 | | | | | | | seconds: Increase rate by 150 | | | | | | | units/hr (2 units/kg/hr) Repeat | | | | | | | APTT 6 hr after change APTT | | | | | | | 57-76 seconds (GOAL RANGE): No | | | | | | | bolus or rate change. Repeat | | | | | | | APTT 6 hours then QAM. APTT | | | | | | | 77-86 seconds: Decrease rate by | | | | | | | 50 units/hr (1 unit/kg/hr) | | | | | | | Repeat APTT 6 hr after change | | | | | | | APTT 87-98 seconds: Stop | | | | | | | infusion 30 minutes & decrease | | | | | | | rate by 150 units/hr (2 | | | | | | | units/kg/hr) Repeat APTT 6 hr | | | | | | | from the time infusion | | | | | | | stopped. APTT > 98 seconds: | | | | | | | Stop infusion 60 minutes & | | | | | | | decrease rate by 200 units/hr (3 | | | | | | | units/kg/hr) Repeat APTT 6 hr | | | | | | | from the time infusion | | | | | | | stopped. Use actual body weight | | | | | | | to calculate dose Round infusion | | | | | | | dose to nearest 50 units/hr. | | | | | | | Round bolus dose to nearest 100 | | | | | | | units., | | | | | | + + + + + +---+ +---------+ + + +---+ | New Bag | 06/10/20 | 1,050 | 21 mL/hr | | | | 18 9:19 | Units/hr | | | | | PM PDT | | | | +---------+ + + +---+ | New Bag | 06/10/20 | 800 | 16 mL/hr | | | | 18 3:23 | Units/hr | | | | | PM PDT | | | | +---------+ + + +---+ +---+---+ | | | +---+---+ + +-------+ +-------+---+---+ | hydrOXYzine hydrochloride | Given | 06/10/20 | 25 mg | | | | (ATARAX) tablet 25 mg 25 mg, | | 18 11:51 | | | | | Oral, EVERY 6 HOURS PRN, Itching, | | PM PDT | | | | | Anxiety, Starting 06/08/18 at | | | | | | | 1112 | | | | | | + +-------+ +-------+---+---+ +-------+ +-------+---+---+ | Given | 06/10/20 | 25 mg | | | | | 18 5:49 | | | | | | PM PDT | | | | +-------+ +-------+---+---+ | Given | 06/10/20 | 25 mg | | | | | 18 11:14 | | | | | | AM PDT | | | | +-------+ +-------+---+---+ + +---+ | | | + +---+ | ibuprofen (ADVIL,MOTRIN) tablet | | | 600 mg 600 mg, Oral, EVERY 6 | | | HOURS PRN, Pain, Starting Fri | | | 06/12/18 at 2136, Give with food., | | + +---+ | | | + +---+ + +-------+ +--------+---+---+ | ibuprofen (ADVIL,MOTRIN) tablet | Given | 06/15/20 | 600 mg | | | | 600 mg 600 mg, Oral, 3 TIMES | | 18 4:08 | | | | | DAILY WITH MEALS, First dose on | | PM PDT | | | | | 06/13/18 at 0845, Give with | | | | | | | food., | | | | | | + +-------+ +--------+---+---+ +-------+ +--------+---+---+ | Given | 06/15/20 | 600 mg | | | | | 18 8:30 | | | | | | AM PDT | | | | +-------+ +--------+---+---+ | Given | 06/14/20 | 600 mg | | | | | 18 4:29 | | | | | | PM PDT | | | | +-------+ +--------+---+---+ +---+---+ | | | +---+---+ + +-------+ +---------+---+ + | insulin lispro (humaLOG) 100 | Given | 06/13/20 | 1 Units | | Arm-Left | | units/mL injection (vial) 0-6 | | 18 6:29 | | | Upper | | Units 0-6 Units, Subcutaneous, 5 | | AM PDT | | | | | TIMES DAILY BEFORE MEALS & | | | | | | | NIGHTLY & 3 AM, First dose on Fri | | | | | | | 06/12/18 at 0800, CORRECTION | | | | | | | SCALE: Blood Glucose (BG) < | | | | | | | 150: None BG | | | | | | | 150-200: DAY: 1 units. NIGHT: 0 | | | | | | | units BG 201-250: DAY: 2 units. | | | | | | | NIGHT: 1 units BG 251-300: | | | | | | | DAY: 3 units. NIGHT: 2 units | | | | | | | BG 301-350: DAY: 4 units. NIGHT: | | | | | | | 3 units BG 351-400: DAY: 5 | | | | | | | units. NIGHT: 4 units BG > | | | | | | | 400 : DAY: 6 units. NIGHT: 5 | | | | | | | units | | | | | | | AND CALL PROVIDER Use DAY DOSE | | | | | | | for doses scheduled: AC, | | | | | | | NPO, Daytime [phone] Use NIGHT | | | | | | | DOSE for doses scheduled: | | | | | | | HS, 3AM, Nighttime [phone] Only | | | | | | | for use with U-100 insulin | | | | | | | syringe., | | | | | | + +-------+ +---------+---+ + +-------+ +---------+---+ + | Given | 06/12/20 | 1 Units | | Abdomen- | | | 18 12:30 | | | LLQ | | | PM PDT | | | | +-------+ +---------+---+ + +---+---+ | | | +---+---+ + + + + +-------+---+ | insulin regular (novoLIN R) 100 | Rate/Dos | 06/12/20 | 0.4 | 0.4 | | | units in 100 mL NS infusion | e Verify | 18 8:00 | Units/hr | mL/hr | | | (open heart protocol) 0-140.8 | | AM PDT | | | | | Units/hr (0-140.8 mL/hr), at | | | | | | | 0-140.8 mL/hr, Intravenous, | | | | | | | TITRATED, Starting Marycarmen 06/11/18 at | | | | | | | 1700, See link for Heart Column[facility] | | | | | | | Insulin Infusion (on DEC) and | | | | | | | Heart surgery insulin infusion | | | | | | | management order for | | | | | | | administration instructions., | | | | | | + + + + +-------+---+ + + + +-------+---+ | Rate/Dose Verify | 06/12/20 | 0.4 | 0.4 | | | | 18 7:00 | Units/hr | mL/hr | | | | AM PDT | | | | + + + +-------+---+ | Rate/Dose Change | 06/12/20 | 0.4 | 0.4 | | | | 18 6:00 | Units/hr | mL/hr | | | | AM PDT | | | | + + + +-------+---+ +---+---+ | | | +---+---+ + +-------+ +---------+---+---+ | ipratropium (ATROVENT) 500 | Given | 06/11/20 | 500 mcg | | | | mcg/2.5 mL nebulizer solution 500 | | 18 7:18 | | | | | mcg 500 mcg, Nebulization, RT | | AM PDT | | | | | BID, First dose on Marycarmen 06/11/18 at | | | | | | | 0900, RT will administer., Pre-op | | | | | | + +-------+ +---------+---+---+ +---+---+ | | | +---+---+ + +-------+ +-------+---+---+ | isosorbide dinitrate (ISORDIL) | Given | 06/10/20 | 10 mg | | | | tablet 10 mg 10 mg, Oral, 3 | | 18 8:40 | | | | | TIMES DAILY NOT ATC, First dose | | PM PDT | | | | | on 06/10/18 at 1400 | | | | | | + +-------+ +-------+---+---+ +-------+ +-------+---+---+ | Given | 06/10/20 | 10 mg | | | | | 18 1:55 | | | | | | PM PDT | | | | +-------+ +-------+---+---+ +---+---+ | | | +---+---+ + +-------+ +-------+---+---+ | ketorolac (TORADOL) injection | Given | 06/12/20 | 15 mg | | | | 15 mg 15 mg, Intravenous, ONCE, | | 18 9:50 | | | | | 06/12/18 at 1000, For 1 dose | | AM PDT | | | | + +-------+ +-------+---+---+ +---+---+ | | | +---+---+ + +-------+ +---------+---+---+ | levalbuterol (XOPENEX) | Given | 06/11/20 | 1.25 mg | | | | nebulizer solution 1.25 mg 1.25 | | 18 7:12 | | | | | mg, Nebulization, RT EVERY 4 | | AM PDT | | | | | HOURS PRN, Wheezing, Starting Wed | | | | | | | 06/10/18 at 2348, Pre-op | | | | | | + +-------+ +---------+---+---+ +---+---+ | | | +---+---+ + +---------+ +---------+---+ + | lidocaine 4 % patch 1 patch 1 | Patch | 06/13/20 | 1 patch | | Back-Rig | | patch, Transdermal, DAILY, First | Applied | 18 12:51 | | | ht Upper | | dose on Fri06/12/18 at 2145, Apply | | AM PDT | | | | | for 12 hours, then remove for 12 | | | | | | | hours., Time to remove patch: | | | | | | | 9:00 AM | | | | | | + +---------+ +---------+---+ + +---+---+ | | | +---+---+ + +---------+ +---------+---+ + | lidocaine 4 % patch 1 patch 1 | Patch | 06/15/20 | 1 patch | | Chest-Le | | patch, Transdermal, DAILY, First | Applied | 18 8:30 | | | ft | | dose on 06/13/18 at 0900, Apply | | AM PDT | | | Anterior | | for 12 hours, then remove for 12 | | | | | | | hours. Remove current patch on | | | | | | | shoulder, replace with new lido | | | | | | | patch next to MSI, Time to remove | | | | | | | patch: 9:00 PM | | | | | | + +---------+ +---------+---+ + + + +---------+---+ + | Patch Applied | 06/14/20 | 1 patch | | Chest-Le | | | 18 8:30 | | | ft | | | AM PDT | | | Anterior | + + +---------+---+ + | Patch Applied | 06/13/20 | 1 patch | | Chest-Le | | | 18 9:05 | | | ft | | | AM PDT | | | Anterior | + + +---------+---+ + +---+---+ | | | +---+---+ + +-------+ +-------+---+---+ | lisinopril (PRINIVIL, ZESTRIL) | Given | 06/08/20 | 20 mg | | | | tablet 20 mg 20 mg, Oral, DAILY, | | 18 8:25 | | | | | First dose on 06/07/18 at 1515 | | AM PDT | | | | + +-------+ +-------+---+---+ +-------+ +-------+---+---+ | Given | 06/07/20 | 20 mg | | | | | 18 3:08 | | | | | | PM PDT | | | | +-------+ +-------+---+---+ +---+---+ | | | +---+---+ + +-------+ +-------+---+---+ | lisinopril (PRINIVIL, ZESTRIL) | Given | 06/09/20 | 20 mg | | | | tablet 20 mg 20 mg, Oral, 2 | | 18 8:36 | | | | | TIMES DAILY, First dose (after | | PM PDT | | | | | last modification) on 06/08/18 | | | | | | | at 2100 | | | | | | + +-------+ +-------+---+---+ +-------+ +-------+---+---+ | Given | 06/08/20 | 20 mg | | | | | 18 8:38 | | | | | | PM PDT | | | | +-------+ +-------+---+---+ +---+---+ | | | +---+---+ + +-------+ +------+---+---+ | LORazepam (ATIVAN) 2 mg/mL | Given | 06/07/20 | 1 mg | | | | injection 1 mg 1 mg, | | 18 12:55 | | | | | Intravenous, EVERY 30 MIN PRN, | | PM PDT | | | | | Anxiety, Starting 06/07/18 at | | | | | | | 1058, For 2 doses | | | | | | + +-------+ +------+---+---+ +-------+ +------+---+---+ | Given | 06/07/20 | 1 mg | | | | | 18 11:06 | | | | | | AM PDT | | | | +-------+ +------+---+---+ +---+---+ | | | +---+---+ + +-------+ +------+---+---+ | LORazepam (ATIVAN) tablet 1-2 | Given | 06/15/20 | 1 mg | | | | mg 1-2 mg, Oral, EVERY 6 HOURS | | 18 7:17 | | | | | PRN, Anxiety, Starting 06/12/18 | | PM PDT | | | | | at 1834 | | | | | | + +-------+ +------+---+---+ +-------+ +------+---+---+ | Given | 06/15/20 | 1 mg | | | | | 18 3:20 | | | | | | AM PDT | | | | +-------+ +------+---+---+ | Given | 06/14/20 | 1 mg | | | | | 18 9:29 | | | | | | PM PDT | | | | +-------+ +------+---+---+ +---+---+ | | | +---+---+ + +-------+ +--------+---+---+ | magnesium oxide (MAG-OX) tablet | Given | 06/10/20 | 400 mg | | | | 400 mg 400 mg, Oral, DAILY, | | 18 8:19 | | | | | First dose on Fri06/08/18 at 1030 | | AM PDT | | | | + +-------+ +--------+---+---+ +-------+ +--------+---+---+ | Given | 06/09/20 | 400 mg | | | | | 18 11:14 | | | | | | AM PDT | | | | +-------+ +--------+---+---+ | Given | 06/08/20 | 400 mg | | | | | 18 10:20 | | | | | | AM PDT | | | | +-------+ +--------+---+---+ +---+---+ | | | +---+---+ + +---------+ +-----+ +---+ | magnesium sulfate 2 g/50 mL | New Bag | 06/08/20 | 2 g | 25 mL/hr | | | IVPB 2 g 2 g, Intravenous, | | 18 10:57 | | | | | Administer over 120 Minutes, | | AM PDT | | | | | ONCE, [facility] 06/08/18 at 1045, For 1 | | | | | | | dose, Maximum recommended | | | | | | | infusion rate = 1 gram/hour., | | | | | | + +---------+ +-----+ +---+ +---+---+ | | | +---+---+ + +---------+ +-----+ +---+ | magnesium sulfate 2 g/50 mL | New Bag | 06/12/20 | 2 g | 25 mL/hr | | | IVPB 2 g 2 g, Intravenous, | | 18 8:26 | | | | | Administer over 120 Minutes, | | AM PDT | | | | | DAILY, First dose on Marycarmen 06/11/18 | | | | | | | at 1700, For 2 doses, Maximum | | | | | | | recommended infusion rate = 1 | | | | | | | gram/hour., Post-op/Phase II | | | | | | + +---------+ +-----+ +---+ +---------+ +-----+ +---+ | New Bag | 06/11/20 | 2 g | 25 mL/hr | | | | 18 5:44 | | | | | | PM PDT | | | | +---------+ +-----+ +---+ +---+---+ | | | +---+---+ + +-------+ +---------+---+---+ | metoprolol tartrate (LOPRESSOR) | Given | 06/11/20 | 12.5 mg | | | | tablet 12.5 mg 12.5 mg, Oral, | | 18 4:15 | | | | | SANITATION INSPECTOR, Starting Marycarmen 06/11/18 at | | AM PDT | | | | | 0414, For 1 dose, Give morning of | | | | | | | heart surgery, Pre-op | | | | | | + +-------+ +---------+---+---+ +---+---+ | | | +---+---+ + +-------+ +-------+---+---+ | metoprolol tartrate (LOPRESSOR) | Given | 06/10/20 | 25 mg | | | | tablet 25 mg 25 mg, Oral, 2 | | 18 8:40 | | | | | TIMES DAILY, First dose on Fri | | PM PDT | | | | | 06/10/18 at 2100 | | | | | | + +-------+ +-------+---+---+ +---+---+ | | | +---+---+ + +-------+ +---+---+---+ | mupirocin (BACTROBAN) 2% | Given | 06/11/20 | | | | | ointment Both nostrils, 2 TIMES | | 18 12:47 | | | | | DAILY, First dose on Fri06/11/18 | | AM PDT | | | | | at 0015, For 2 doses, Apply 0.5 | | | | | | | gram to each nare. Give 1st dose | | | | | | | the night before surgery. Give | | | | | | | 2nd dose the day of surgery in | | | | | | | preop area, Pre-op | | | | | | + +-------+ +---+---+---+ +---+---+ | | | +---+---+ + +-------+ +------+---+---+ | ondansetron (ZOFRAN) injection | Given | 06/11/20 | 4 mg | | | | 4 mg 4 mg, Intravenous, EVERY 6 | | 18 7:23 | | | | | HOURS PRN, Nausea, Vomiting, | | PM PDT | | | | | Starting [facility] 06/11/18 at 1635, | | | | | | | First line agent Use PO option | | | | | | | unless NPO status or unable to | | | | | | | tolerate., | | | | | | + +-------+ +------+---+---+ +---+---+ | | | +---+---+ + +-------+ +------+---+---+ | ondansetron (ZOFRAN) injection | Given | 06/07/20 | 8 mg | | | | 8 mg 8 mg, Intravenous, ONCE, | | 18 9:09 | | | | | 06/07/18 at 0905, For 1 dose | | AM PDT | | | | + +-------+ +------+---+---+ +---+---+ | | | +---+---+ + +-------+ +------+---+---+ | ondansetron (ZOFRAN) injection | Given | 06/07/20 | 8 mg | | | | 8 mg 8 mg, Intravenous, EVERY 4 | | 18 1:53 | | | | | HOURS PRN, Nausea, Vomiting, | | PM PDT | | | | | Starting 06/07/18 at 1303 | | | | | | + +-------+ +------+---+---+ +---+---+ | | | +---+---+ + +-------+ +-------+---+---+ | oxyCODONE (oxyCONTIN) ER | Given | 06/15/20 | 20 mg | | | | abuse-deterrent tablet 20 mg 20 | | 18 7:17 | | | | | mg, Oral, EVERY 12 HOURS (2 times | | PM PDT | | | | | per day), First dose on Fri | | | | | | | 06/12/18 at 1000, Do not cut or | | | | | | | crush., | | | | | | + +-------+ +-------+---+---+ +-------+ +-------+---+---+ | Given | 06/15/20 | 20 mg | | | | | 18 8:29 | | | | | | AM PDT | | | | +-------+ +-------+---+---+ | Given | 06/14/20 | 20 mg | | | | | 18 9:29 | | | | | | PM PDT | | | | +-------+ +-------+---+---+ +---+---+ | | | +---+---+ + +-------+ +-------+---+---+ | oxyCODONE (ROXICODONE) tablet | Given | 06/12/20 | 10 mg | | | | 5-10 mg 5-10 mg, Oral, EVERY 3 | | 18 7:06 | | | | | HOURS PRN, Pain, Starting Marycarmen | | AM PDT | | | | | 06/11/18 at 1635, First dose must | | | | | | | be the lowest dose, can titrate | | | | | | | to effective dose by repeat of | | | | | | | lowest dose every 60 minutes prn | | | | | | | pain, may not exceed maximum dose | | | | | | | ordered per interval. Use Pasero | | | | | | | Sedation Scale., Post-op/Phase | | | | | | | II | | | | | | + +-------+ +-------+---+---+ +-------+ +-------+---+---+ | Given | 06/12/20 | 10 mg | | | | | 18 4:00 | | | | | | AM PDT | | | | +-------+ +-------+---+---+ +---+---+ | | | +---+---+ + +-------+ +-------+---+---+ | oxyCODONE (ROXICODONE) tablet | Given | 06/15/20 | 15 mg | | | | 5-15 mg 5-15 mg, Oral, EVERY 3 | | 18 3:21 | | | | | HOURS PRN, Pain, Starting Fri | | AM PDT | | | | | 06/12/18 at 0938, First dose must | | | | | | | be the lowest dose, can titrate | | | | | | | to effective dose by repeat of | | | | | | | lowest dose every 60 minutes prn | | | | | | | pain, may not exceed maximum dose | | | | | | | ordered per interval. Use Pasero | | | | | | | Sedation Scale., | | | | | | + +-------+ +-------+---+---+ +-------+ +-------+---+---+ | Given | 06/14/20 | 15 mg | | | | | 18 11:50 | | | | | | PM PDT | | | | +-------+ +-------+---+---+ | Given | 06/14/20 | 15 mg | | | | | 18 7:51 | | | | | | PM PDT | | | | +-------+ +-------+---+---+ +---+---+ | | | +---+---+ + +-------+ +-------+---+---+ | pantoprazole (PROTONIX) DR | Given | 06/10/20 | 40 mg | | | | tablet 40 mg 40 mg, Oral, DAILY | | 18 6:41 | | | | | BEFORE BREAKFAST, First dose on | | AM PDT | | | | | 06/09/18 at 0730, Do not cut or | | | | | | | crush., Indication: GERD | | | | | | + +-------+ +-------+---+---+ +-------+ +-------+---+---+ | Given | 06/09/20 | 40 mg | | | | | 18 11:13 | | | | | | AM PDT | | | | +-------+ +-------+---+---+ +---+---+ | | | +---+---+ + +-------+ +-------+---+---+ | pantoprazole (PROTONIX) DR | Given | 06/15/20 | 40 mg | | | | tablet 40 mg 40 mg, Oral, DAILY | | 18 10:45 | | | | | BEFORE BREAKFAST, First dose on | | AM PDT | | | | | 06/15/18 at 1030, Do not cut | | | | | | | or crush., Indication: GERD | | | | | | + +-------+ +-------+---+---+ +---+---+ | | | +---+---+ + +-------+ +-------+---+---+ | pantoprazole (PROTONIX) | Given | 06/08/20 | 40 mg | | | | injection 40 mg 40 mg, | | 18 8:25 | | | | | Intravenous, 2 TIMES DAILY, First | | AM PDT | | | | | dose on 06/07/18 at 1305, If | | | | | | | reconstituting, mix each 40 mg | | | | | | | vial with 10 mL NS to make 4 | | | | | | | mg/mL., Indication: GERD | | | | | | + +-------+ +-------+---+---+ +-------+ +-------+---+---+ | Given | 06/07/20 | 40 mg | | | | | 18 8:38 | | | | | | PM PDT | | | | +-------+ +-------+---+---+ | Given | 06/07/20 | 40 mg | | | | | 18 1:53 | | | | | | PM PDT | | | | +-------+ +-------+---+---+ +---+---+ | | | +---+---+ + + + +---------+---------+---+ | phenylephrine (HADLEY-SYNEPHRINE) | Rate/Dos | 06/12/20 | 10 | 6 mL/hr | | | 100 mcg/mL in 500 mL NS infusion | e Change | 18 8:26 | mcg/min | | | | 0-100 mcg/min (0-60 mL/hr), at | | AM PDT | | | | | 0-60 mL/hr, Intravenous, | | | | | | | TITRATED, Starting Marycarmen 06/11/18 at | | | | | | | 1700, Initial dose: 100 mcg/min, | | | | | | | Goal: SBP greater than 90, SBP | | | | | | | greater than 90, Post-op/Phase II | | | | | | + + + +---------+---------+---+ + + +---------+ +---+ | Rate/Dose Change | 06/12/20 | 20 | 12 mL/hr | | | | 18 8:00 | mcg/min | | | | | AM PDT | | | | + + +---------+ +---+ | Rate/Dose Change | 06/12/20 | 30 | 18 mL/hr | | | | 18 7:00 | mcg/min | | | | | AM PDT | | | | + + +---------+ +---+ +---+---+ | | | +---+---+ + +-------+ +--------+---+---+ | potassium chloride (Klor-Con | Given | 06/08/20 | 40 mEq | | | | M20) ER tablet 40 mEq 40 mEq, | | 18 10:20 | | | | | Oral, ONCE, 06/08/18 at 1030, | | AM PDT | | | | | For 1 dose | | | | | | + +-------+ +--------+---+---+ +---+---+ | | | +---+---+ + +---------+ +--------+ +---+ | potassium chloride 20 mEq in | New Bag | 06/11/20 | 20 mEq | 50 mL/hr | | | sterile water 50 mL IVPB 20 mEq, | | 18 10:20 | | | | | Intravenous, Administer over 1 | | PM PDT | | | | | Hours, PRN, Per protocol, | | | | | | | Starting [facility] 06/11/18 at 1636, | | | | | | | ICU Use Only For Central | | | | | | | Line use Only Protocol NOT | | | | | | | recommended if Scr > 1.8, | | | | | | | dialysis patients or CrCl < 50 | | | | | | | mL/min [K+] =3.6 - 4 mEql/L | | | | | | | Give 20 mEq KCl Q1H IV x 2 doses | | | | | | | For a total of 40 mEq [K+] =3 | | | | | | | - 3.5 mEql/L Give 20 meq KCl | | | | | | | Q1H IV x 3 doses For a total | | | | | | | of 60 mEq [K+] < 3.0 mEql/L | | | | | | | Give 20 mEq KCl Q1H IV x 4 doses | | | | | | | For a total of 80 mEq. * | | | | | | | Obtain K+ level 2 hours after | | | | | | | replacement is done. If K+ | | | | | | | still < 3.6 mEq/L, repeat | | | | | | | replacement as indicated per | | | | | | | protocol., | | | | | | + +---------+ +--------+ +---+ +---------+ +--------+ +---+ | New Bag | 06/11/20 | 20 mEq | 50 mL/hr | | | | 18 8:49 | | | | | | PM PDT | | | | +---------+ +--------+ +---+ +---+---+ | | | +---+---+ + +-------+ +---------+---+---+ | probiotic formula capsule 1 | Given | 06/10/20 | 1 | | | | capsule 1 capsule, Oral, 2 TIMES | | 18 4:23 | capsule | | | | DAILY WITH BREAKFAST & DINNER, | | PM PDT | | | | | First dose on 06/07/18 at 1915, | | | | | | | VSL#3 capsule. DO NOT OPEN OR | | | | | | | CRUSH. Opening capsules | | | | | | | increases the risk of | | | | | | | aerosolization of the probiotics | | | | | | | bacteria and contamination of the | | | | | | | surrounding environment. | | | | | | | Probiotics added by pharmacy per | | | | | | | P&T protocol. Do not open or | | | | | | | crush., | | | | | | + +-------+ +---------+---+---+ +-------+ +---------+---+---+ | Given | 06/10/20 | 1 | | | | | 18 8:18 | capsule | | | | | AM PDT | | | | +-------+ +---------+---+---+ | Given | 06/09/20 | 1 | | | | | 18 4:42 | capsule | | | | | PM PDT | | | | +-------+ +---------+---+---+ +---+---+ | | | +---+---+ + +-------+ +---------+---+---+ | promethazine (PHENERGAN) (IV | Given | 06/07/20 | 12.5 mg | | | | ONLY) injection 12.5 mg 12.5 mg, | | 18 11:06 | | | | | Intravenous, ONCE, 06/07/18 at | | AM PDT | | | | | 0905, For 1 dose, Mix in 100 ml | | | | | | | ns and run ivpb, | | | | | | + +-------+ +---------+---+---+ +---+---+ | | | +---+---+ + + + + +-------+---+ | propofol infusion (DIPRIVAN) 10 | Rate/Dos | 06/11/20 | 10 | 3.9 | | | mg/mL infusion 0-70 mcg/kg/min | e Change | 18 8:25 | mcg/kg/m | mL/hr | | | | | PM PDT | in | | | | 65.5 kg (0-27.51 mL/hr, rounded | | | | | | | to 0-27.5 mL/hr), at 0-27.5 | | | | | | | mL/hr, Intravenous, TITRATED, | | | | | | | Starting [facility] 06/11/18 at 1700, PLUS | | | | | | | 30mg IV every 5 minutes prn | | | | | | | breakthrough agitation (maximum | | | | | | | total bolus dose = 150mg per | | | | | | | hour) Reduce dose every 4 hours | | | | | | | to the lowest dose required to | | | | | | | meet sedation goal. Shake well. | | | | | | | Do not filter. Expires 12 hours | | | | | | | after spiked., Initial dose: 10 | | | | | | | mcg/kg/min, Goal: Other, Other | | | | | | | goal: RASS goal in pain/sedation | | | | | | | management order., Post-op/Phase | | | | | | | II | | | | | | + + + + +-------+---+ + + + +-------+---+ | Rate/Dose Verify | 06/11/20 | 20 | 7.9 | | | | 18 8:00 | mcg/kg/m | mL/hr | | | | PM PDT | in | | | + + + +-------+---+ | Rate/Dose Change | 06/11/20 | 20 | 7.9 | | | | 18 6:48 | mcg/kg/m | mL/hr | | | | PM PDT | in | | | + + + +-------+---+ +---+---+ | | | +---+---+ + +-------+ +--------+---+---+ | senna (SENOKOT) tablet 8.6 mg | Given | 06/15/20 | 8.6 mg | | | | 8.6 mg, Oral, 2 TIMES DAILY PRN, | | 18 8:34 | | | | | Constipation, Starting [facility] 06/11/18 | | AM PDT | | | | | at 1635, If docusate ineffective | | | | | | | or not ordered, | | | | | | + +-------+ +--------+---+---+ +-------+ +--------+---+---+ | Given | 06/12/20 | 8.6 mg | | | | | 18 8:44 | | | | | | PM PDT | | | | +-------+ +--------+---+---+ | Given | 06/12/20 | 8.6 mg | | | | | 18 4:59 | | | | | | AM PDT | | | | +-------+ +--------+---+---+ +---+---+ | | | +---+---+ + +---------+ +--------+-------+---+ | sodium chloride 0.9% (NS) bolus | New Bag | 06/07/20 | 1,000 | 1000 | | | 1,000 mL 1,000 mL, Intravenous, | | 18 9:08 | mLs | mL/hr | | | Administer over 1 Hours, ONCE, | | AM PDT | | | | | 06/07/18 at 0905, For 1 dose | | | | | | + +---------+ +--------+-------+---+ +---+---+ | | | +---+---+ + +---------+ +---------+-------+---+ | sodium chloride 0.9% (NS) bolus | New Bag | 06/09/20 | 196 mLs | 65.3 | | | 196 mL 196 mL (rounded from | | 18 3:05 | | mL/hr | | | 196.2 mL = 3 mL/kg | | PM PDT | | | | | 65.4 kg), Intravenous, | | | | | | | Administer over 3 Hours, ONCE, | | | | | | | 06/09/18 at 1400, For 1 dose, 1 | | | | | | | ml/kg/hr x 3 hours, | | | | | | | Post-op/Phase II | | | | | | + +---------+ +---------+-------+---+ +---+---+ | | | +---+---+ + +---------+ +---+-------+---+ | sodium chloride 0.9% (NS) | New Bag | 06/08/20 | | 100 | | | infusion at 100 mL/hr, | | 18 5:42 | | mL/hr | | | Intravenous, CONTINUOUS, Starting | | AM PDT | | | | | 06/07/18 at 1515 | | | | | | + +---------+ +---+-------+---+ +---------+ +---+-------+---+ | New Bag | 06/07/20 | | 100 | | | | 18 4:10 | | mL/hr | | | | PM PDT | | | | +---------+ +---+-------+---+ +---+---+ | | | +---+---+ + +-------+ +-----+---+---+ | sucralfate (CARAFATE) tablet 2 | Given | 06/07/20 | 2 g | | | | g 2 g, Oral, ONCE, 06/07/18 at | | 18 9:08 | | | | | 0905, For 1 dose, DISSOLVE IN 30 | | AM PDT | | | | | ML WATER After nausea | | | | | | | controlled, | | | | | | + +-------+ +-----+---+---+ +---+---+ | | | +---+---+ + +-------+ + +---+---+ | technetium TC-99M sestamibi | Given | 06/09/20 | 23.1 | | | | (CARDIOLITE) injection 23.1 | | 18 9:28 | millicur | | | | millicurie 23.1 millicurie, | | AM PDT | ies | | | | Intravenous, ONCE PRN, Angela, | | | | | | | Starting [facility] 06/09/18 at 0915, For | | | | | | | 1 dose, Nuclear Medicine | | | | | | + +-------+ + +---+---+ +---+---+ | | | +---+---+ + +-------+ + +---+---+ | technetium TC-99M sestamibi | Given | 06/09/20 | 7.6 | | | | (CARDIOLITE) injection 7.6 | | 18 8:29 | millicur | | | | millicurie 7.6 millicurie, | | AM PDT | ies | | | | Intravenous, ONCE PRN, Other, | | | | | | | Starting [facility] 06/09/18 at 0829, For | | | | | | | 1 dose, Nuclear Medicine | | | | | | + +-------+ + +---+---+ +---+---+ | | | +---+---+ + +---------+ +-----+--------+---+ | vancomycin 1 g in sodium | New Bag | 06/11/20 | 1 g | 166.7 | | | chloride 0.9% 250 mL IVPB 1 g, | | 18 10:26 | | mL/hr | | | Intravenous, Administer over 90 | | PM PDT | | | | | Minutes, EVERY 12 HOURS INTERVAL, | | | | | | | First dose on [facility] 06/11/18 at | | | | | | | 2300, For 1 dose, Activate system | | | | | | | and mix before use., | | | | | | | Post-op/Phase II, Indications: | | | | | | | Surgical Prophylaxis | | | | | | + +---------+ +-----+--------+---+ +---+---+ | | | +---+---+ documented in [...]
--- OUTSIDE RECORDS SUMMARY | ~2019-09-08 | XMS | Encounter Summary ---
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 REFERENCE | | | Code | | | [facility] [place] | | | | | | [facility] | | | | | | [facility] | | | | | [facility] | | | | | | [facility] | | + + + + + + | UNIT # | [id number] | | REFERENCE | | | | | | [facility] | | | | | | [facility] | | | | | | [facility] | | | | | | [facility] | | | | | | [facility] | | + + + + + + | UNIT ABO | O | | REFERENCE | | | | | | [facility] [place] | | | | | | [facility] | | | | | | [facility] | | | | | | [facility] | | | | | | [facility] | | + + + + + + | UNIT RH | NEG | | REFERENCE | | | | | | [facility] | | | | | | [facility] | | | | | | [facility] | | | | | | [facility] | | | | | | [facility] | | + + + + + + | CROSSMATCH | Compatible | | REFERENCE | | | INTERP | | | [facility] [place] | | | | | | [facility] | | | | | | [facility] | | | | | | [facility] | | | | | | [facility] | | + + + + + + | Unit Status | IS | | REFERENCE | | | | | | [facility] | | | | | | [facility] | | | | | | [facility] | | | | | | [facility] | | | | | | [facility] | | + + + + + + | Blood | [id number] | | REFERENCE | | | Product | | | [facility] | | | Expiration | | | [facility] | | | Date and | | | [facility] | | | Time | | | [facility] | | | | | | [facility]ENTER | | + + + + + + | Product | [id number] | | REFERENCE | | | Blood Type | | | [facility] | | | Barcode | | | [...] + + + | Specimen Expiration Date: [id number] | REFERENCE LAB | | | [facility] | | | [facility] | | [facility] | + + + + + + + + | Performing | Address | City/State/Zipcode | Phone Number | | Organization | | | | + + + + + | REFERENCE LAB | [address] | [place] [address] | [phone] | | [place] [facility] | | | | | [facility] [...] | | | POC | Performed by [facility] [address] | | SACRED | | | | [address] [place], [place] | | HEART | | | | [address] | | MEDICAL | | | | [...] + + + + + | [facility] | [address] | [place] [address] | | | [employer] [facility] | | | | | RIVERA FRIAS [...] (H)Comment: | 65 - 99 mg/dL | [facility] | | | POC | Performed by [facility] [address] | | SACRFAUSTO | | | | [place] | | HEART | | | | [address] | | MEDICAL | | | | [...] + | [facility] | [address] | [place] [address] | | | [facility] | [...] | | | POC | Performed by [facility] [address] | | SACRED | | | | [address] [place] | | HEART | | | | [address] | | MEDICAL | | | | [...] [address] | [place] [address] | | | [employer] [facility] | | | | | RIVERA FRIAS [...] | | | POC | Performed by [facility] [address] | | SACRFAUSTO | | | | [place] | | HEART | | | | [address] | | MEDICAL | | | | [...] + + | [facility] | [address] | [place] [address] | | | [facility] | [...] | | | POC | Performed by [facility] [address] | | SACRED | | | | [address] [place] | | HEART | | | | [address] | | MEDICAL | | | | [...] [address] | [place] [address] | | | [facility] | | | | | RIVERA FRIAS [...] | | | POC | Performed by [facility] [address] | | SACRFAUSTO | | | | [place] | | HEART | | | | [address] | | MEDICAL | | | | [...] + + | AM[facility] | [address] | [place] [address] | | | [facility] | [...] Signed by: MD Won, Arabella Sign Date/Time: 06/13/2018 6:46 AM | | [...] [facility] | | | | Performed by [facility] [address] | | SACRED | | | | [address] [place] | | HEART | | | | [address] | | MEDICAL | | | | [...] + | [facility] SACRED | [address] | [place] [address] | | | [facility] | | | | | LABORATORY CERNER [...] | | MEDICAL | | | | [facility] [address], | | CENTER | | | | [place] [address] | | LABORATORY | | | | [...] + + | AMILCAR [facility] | [address] | [place] [address] | | | [employer] | | | | | RIVERA FIRAS | | | | + + + [...] | | | POC | Performed by [facility] [address] | | SACRED | | | | [address] [place] | | HEART | | | | [address] | | MEDICAL | | | | [...] [address] | [place] [address] | | | [facility] | | | | | LABORATORY CERNER [...] | | | POC | Performed by [facility] [address] | | SACRFAUSTO | | | | [address], [place] | | HEART | | | | [address] | | MEDICAL | | | | [...] + + | AM[facility]CAR [facility] | [address] | [place] [address] | | | [employer] | | | | | LABORATORY ALTAGRACIA [...] | | | POC | Performed by [facility] [address] | | SACRED | | | | [address] [place] | | HEART | | | | [address] | | MEDICAL | | | | [...] [address] | [place] [address] | | | [facility] | | | | | LABORATORY CERNER [...] | | | POC | Performed by [facility] [address] | | BRENDAN | | | | [address], [place] | | HEART | | | | [address] | | MEDICAL | | | | [...] + + | AMILCAR [facility] | [address] | [place] [address] | | | [facility] | | | | | LABORATORY ALTAGRACIA [...] | | | POC | Performed by [facility] [address] | | SACRED | | | | [address] [place] | | HEART | | | | [address] | | MEDICAL | | | | [...] + + | AMILCAR SACRED | [address] | [place] | | | [facility] | | | | | LABORATORY CERNER [...] by | 65 - 99 mg/dL | YINE | | | POC | [facility] [address], | | SACRED | | | | [place] | | HEART | | | |Performed by [facility] [address], [place] | | MEDICAL | | | | [...] + + | AMILCAR [facility] | [address] | [place] [address] | | | [facility] | [...] | | | POC | Performed by [facility] [address] | | SACRED | | | | [address] [place], [place] | | HEART | | | | [address] | | MEDICAL | | | | [...] + + | AMILCAR [facility] | [address] | [place] [address] | | | [employer] [facility] | | | | | RIVERA FRIAS [...] by | 65 - 99 mg/dL | YINE | | | POC | [facility] [address], | | SACRED | | | | [place] | | HEART | | | |Performed by [facility] [address], [place], [place] | | MEDICAL | | | | [...] SACRED | [address] | [place] | | | [facility] | | | | | LABORATORY CERNER [...] | | | pneumothorax. Signed by: MD Won, Arabella Sign | | | Date/Time: 06/12/2018 4:16 [...] | [facility] | | | POC | [facility] [address], | | SACRED | | | | [place] [address] | | HEART | | | |Performed by [facility] [address], [place] [address] | | MEDICAL | | | | [...] + + | AMILCAR [facility] | [address] | [place] [address] | | | [facility] | | | | | LABORATORY [...] | TRACEMASTER | | Duration:184 msP Horizontal [place]:5 degP Front [place]:55 degQ Onset:508 | | | msQRSD Interval:104 msQT Interval:452 msQTcB:452 msQTcF:452 msQRS | | | Horizontal [place]:129 degQRS [place]:-53 degI-40 Horizontal [place]:77 degI-40 | | | Front [place]:-44 degT-40 Horizontal [place]:204 degT-40 Front [place]:-83 | | | degT Horizontal [place]:95 degT Wave [place]:39 degS-T Horizontal [place]:79 | | | degS-T Front [place]:49 degSeverity:- ABNORMAL ECG -INTERP:SINUS | | | RHYTHMINTERP:CONSIDER RIGHT VENTRICULAR HYPERTROPHYINTERP:PROBABLE | | | INFERIOR INFARCT, AGE INDETERMINATEINTERP:BORDERLINE ST ELEVATION, | | | ANTERIOR LEADSElectronically signed by: ELIZABETH CAMPBELL 06-12-2018 | | | 07:37:14 | | |QRS Horizontal [place]:129 deg | | |QRS [place]:-53 deg | | |I-40 Horizontal [place]:77 deg | | |I-40 Front [place]:-44 deg | | |T-40 Horizontal [place]:204 deg | | |T-40 Front [place]:-83 deg | | |T Horizontal [place]:95 deg | | |T Wave [place]:39 deg | | |S-T Horizontal [place]:79 deg | | |S-T Front [place]:49 deg | | |Severity:- ABNORMAL ECG - [...] + + | WAMT TRACEMASTER | [address] | [place] [address] | [phone] | + + + + + CBC [...] PROVIDENCE | | | | Performed by [facility] [address] | | SACRED | | | | [address] [place] | | HEART | | | | [address] | | MEDICAL | | | | [...] SACRED | [address] | [place] [address] | | | [facility] | | | | | LABORATORY [...] | 51 (L)Comment: eGFR<60 | >=90 | [facility] | | | GFR | consistent with impaired | mL/min/1.73m2 | SACRED | | | | kidney | | HEART | | | | function.Performed by | | MEDICAL | | | | [facility] [address], | | CENTER | | | | [place] [address] | | LABORATORY | | | | [...] + | AMILCAR [facility] | [address] | [place] [address] | | | [employer] | | | | | LABORATORY ALTAGRACIA [...] | | | POC | Performed by [facility] [address] | | SACRED | | | | [address] [place], [place] | | HEART | | | | [address] | | MEDICAL | | | | [...] + + | AMILCAR SACRED | [address] | [place], [place] | | | [facility] [...] | PROVIDENCE | | | POC | [facility] [address], | | SACRED | | | | [place] | | HEART | | | |Performed by [facility] [address], [place] | | MEDICAL | | | | [...] + + | AM[facility]CAR [facility] | [address] | [place] [address] | | | [employer] [facility] | | | | | LABORATORY ALTAGRACIA [...] | | | POC | Performed by [facility] [address] | | SACRED | | | | [address] [place] | | HEART | | | | [address] | | MEDICAL | | | | [...] + + | YINE [facility] | [address] | [place] [address] | | | [employer] | | | | | LABORATORY CERNER [...] 99 mg/dL | PROVIDEDEMIE | | | POC | Performed by [facility] [address] | | SACRFAUSTO | | | | [address], [place] | | HEART | | | | [address] | | MEDICAL | | | | [...] | + + + + + | AMLICAR [facility]ARD[facility] | [address] | [place] [address] | | | [employer] [facility] | | | | | LABORATORY ALTAGRACIA [...] PROVIDENCE | | | | Performed by [facility] [address] | mmol/L | SACRED | | | | [address] [place] | | HEART | | | | [address] | | MEDICAL | | | | [...] + + + + + | YINE SACR | [address] | [place] [address] | | | [employer] | | | | | LABORATORY CERNER [...] 99 mg/dL | YINE | | | | Performed by [facility] [address] | | SACRED | | | | [address], [place] | | HEART | | | | [address] | | MEDICAL | | | | [...] + + | AMILCAR [facility] | [address] | [place] [address] | | | [facility] | | | | | LABORATORY ALTAGRACIA [...] 7.35 (L) | 7.37 - 7.47 | [facility] [...] 0.8 | 0.4 - 1.5 % | [facility] | | | in, Venous | | | SACRED | | | | | | HEART | | | | | | MEDICAL | | | | | | CENTER | | | | | | LABORATO RY | | | | | | CERNER | | + + + +--------- ----+ + | Comment | [address] | | [facility] | | | | | | SACRED | | | | | | HEART | | | | | | MEDICAL | | | | | | CENTER | | | | | | LABORATO RY | | | | | | CERNER | | + + + +--------- ----+ + | Oxygen | 15.8 | 15.0 - 23.0 % | [facility] | | | Content, | | [...] CE | | | ARTERIAL | by [facility] [address], | | SACRED | | | | [place] [address] | | HEART | | | |Performed by [facility] [address], [place] [address] | | MEDICAL | | | | [...] + + + + + | YARELISCARLOS [facility]URNINO[facility]O | [address] | [place] [address] | | | [employer] | | | | | LABORATORY ALTAGRACIA [...] | | | POC | Performed by [facility] [address] | | SACRED | | | | [address], [place] | | HEART | | | | [address] | | MEDICAL | | | | [...] SACRED | [address] | [place] [address] | | | HEART [facility] | | | | | LABORATORY [...] | | | POC | Performed by [facility] [address] | | SACRED | | | | [address] [place] | | HEART | | | | [address] | | MEDICAL | | | | [...] + + | YARELISCARLOS CARDONA | [address] | [place] [address] | | | [facility] | | | | | LABORATORY ALTAGRACIA [...] | [facility] | | | | by [facility] [address], | mmol/L | SACRED | | | | [place] [address] | | HEART | | | |Performed by [facility] [address], [place] [address] | | MEDICAL | | | | [...] [address] | [place] [address] | | | [facility] | | | | | LABORATORY CERNER [...] | | | POC | Performed by [facility] [address] | | SACRFAUSTO | | | | [address], [place] | | HEART | | | | [address] | | MEDICAL | | | | [...] + | AMILCAR [facility]ARD[facility] | [address] | [place] [address] | | | [employer] | | | | | LABORATORY ALTAGRACIA [...] | TRACEMASTER | | Duration:180 msP Horizontal [place]:-10 degP Front [place]:68 degQ Onset:512 | | | msQRSD Interval:110 msQT Interval:444 msQTcB:486 msQTcF:472 msQRS | | | Horizontal [place]:112 degQRS [place]:-63 degI-40 Horizontal [place]:100 | | | degI-40 Front [place]:-58 degT-40 Horizontal [place]: degT-40 Front [place]:160 | | | degT Horizontal [place]:104 degT Wave [place]:-11 degS-T Horizontal | | | [place]:104 degS-T Front [place]:32 degSeverity:- ABNORMAL ECG -INTERP:SINUS | | | RHYTHMINTERP:PROBABLE LEFT ATRIAL ABNORMALITYINTERP:NONSPECIFIC IVCD | | | WITH LADINTERP:INFERIOR INFARCT, AGE INDETERMINATEINTERP:LATERAL | | | INFARCT, OLDElectronically signed by: ELIZABETH CAMPBELL 06-12-2018 | | | 11:18:02 | | |QRS Horizontal [place]:112 deg | | |QRS [place]:-63 deg | | |I-40 Horizontal [place]:100 deg | | |I-40 Front [place]:-58 deg | | |T-40 Horizontal [place]: deg | | |T-40 Front [place]:160 deg | | |T Horizontal [place]:104 deg | | |T Wave [place]:-11 deg | | |S-T Horizontal [place]:104 deg | | |S-T Front [place]:32 deg | | |Severity:- ABNORMAL ECG - [...] + + | SARITHA REY | [address] | [place] [address] | [phone] | + + + + + PTT [...] | | | | | seconds.Performed by [facility] | | | | | | [address], | | | | | | [place] [address] | | | | + + + + + + + + | Specimen | + + | Blood specimen | | (specimen) | + + + + + + + | Performing | Address | City/State/Zipcode | Phone Number | | Organization | | | | + + + + + | [facility] | [address] | [place] [address] | | | [employer] [facility] | | | | | RIVERA FRIAS [...] | | | | to 3.5Performed by [facility] | | LABORATORY | | | | [address] [place], | | JAMINNER | | | | [place] [address] | | | | + + + + + + + + | Specimen | + + | Blood specimen | | (specimen) | + + + + + + + | Performing | Address | City/State/Zipcode | Phone Number | | Organization | | | | + + + + + | AM[facility] | [address] | [place] [address] | | | [facility] | | | | | LABORATORY CERNER [...] | | MEDICAL | | | | [facility] [address], | | CENTER | | | | [place] [address] | | LABORATORY | | | | [...] + + | AMILCAR CARDONA | [address] | [place] [address] | | | [employer] | | | | | RIVERA FRIAS [...] [facility] | | | | Performed by [facility] [address] | | SACRED | | | | [address], [place] | | HEART | | | | [address] | | MEDICAL | | | | [...] SACRED | [address] | [place] [address] | | | [facility] | [...] [facility] | | | Arterial | by [facility] [address], | mmol/L | SACRED | | | | [place] [address] | | HEART | | | |Performed by [facility] [address], [place] [address] | | MEDICAL | | | | [...] + | AMILCAR [facility] | [address] [place] [address]. | [place] [address] | | | [facility] | | | | | LABORATORY ALTAGRACIA [...] E | | | Normalized | by [facility] [address], | mg/dL | SACRED | | | | [place] [address] | | HEART | | | |Performed by [facility] [address], [place] [address] | | MEDICAL | | | | [...] + + | AMILCAR [facility]ARD[facility] | [address] | [place] [address] | | | [facility] | | | | | LABORATORY ALTAGRACIA [...] PROVIDENCE | | | | Performed by [facility] [address] | | SACRED | | | | [address] [place] | | HEART | | | | [address] | | MEDICAL | | | | [...] + + | [facility]ELISDEMIKarly [facility]ARD[facility] | [address] | [place] [address] | | | [facility] | | | | | LABORATORY ALTAGRACIA [...] | 7.39 | 7.37 - 7.47 | [facility] [...] (H) | 32 - 43 mmHg | [facility] | | | Arterial [...] +--------- ----+ + | Comment | [id number] | | [facility] | | | [...] CE | | | ARTERIAL | by [facility] [address], | | SACRED | | | | [place] [address] | | HEART | | | |Performed by [facility] [address], [place] | | MEDICAL | | | [...] + + | [facility] | [address] | [place] | | | [facility] | [...] | | | Arterial | Performed by [facility] [address] | mmol/L | SACRED | | | | [address], [place], [place] | | HEART | | | | [address] | | MEDICAL | | | | [...] SACRED | [address] | [place] [address] | | | [facility] | [...] | 7.37 | 7.37 - 7.47 | Y[facility]ELISN CE [...] PROVIDEN CE | | | | by [facility] [address], | mmol/L | SACRED | | | | [place] [address] | | HEART | | | |Performed by [facility] [address], [place] [address] | | MEDICAL | | | | [...] + + | AMILCAR [facility] | [address] | [place] [address] | | | [facility] | | | | | RIVERA FRIAS | | | | + + + + + DIC Nadja (06/11/2018 2:56 PM PDT) + + + [...] | | | | | seconds.Performed by [facility] | | | | | | [address], | | | | | | [place] [address] | | | | + + + + + + + + | Specimen | + + | Blood specimen | | (specimen) | + + + + + + + | Performing | Address | City/State/Zipcode | Phone Number | | Organization | | | | + + + + + | AM[facility]CAR [facility] | [address] | [place] [address] | | | [facility] | | | | | LABORATORY CERNER [...] | | | Arterial | Performed by [facility] [address] | mmol/L | SACRED | | | | [address], [place] | | HEART | | | | [address] | | MEDICAL | | | | [...] [address] | [place] [address] | | | HE[facility]ICAL CENTER | [...] CENTER | | | | | | HERNAN RY | | | | | | ALTAGRACIA | | + + + +--------- ----+ [...] [facility] | | | | by [facility] [address], | mmol/L | SACRED | | | | [place] [address] | | HEART | | | |Performed by [facility] [address], [place] [address] | | MEDICAL | | | | [...] + | AMILCAR [facility]ARD[facility] | [address] | [place] [address] | | | [employer] | | | | | RIVERA FRIAS [...] [facility]ENCE | | | Arterial | by [place] [address], | mmol/L | SACRED | | | | [place] [address] | | HEART | | | |Performed by [facility] [address], [place] [address] | | MEDICAL | | | | [...] + + | AMILCAR CARDONA | [address] | [place] [address] | | | [facility] | | | | | LABORATORY JAMINNER [...] [facility]ENCE | | | | Performed by [facility] [address] | | SACRED | | | | [address] [place] | | HEART | | | | [address] | | MEDICAL | | | | [...] + + | [facility] SACRED | [address] | [place] [address] | | | [facility] | | | | | LABORATORY CERNER [...] [facility] | | | Arterial | by [facility] [address], | mmol/L | SACRED | | | | [place] | | HEART | | | |Performed by [facility] [address], [place] | | MEDICAL | | | [...] + + | AMILCAR CARDONA | [address] | [place], [place] | | | [facility] [...] [facility] | | | | Performed by [facility] [address] | | SACRED | | | | [address] [place] | | HEART | | | | [address] | | MEDICAL | | | | [...] + + | AMILCAR [facility] | [address] | [place] [address] | | | [facility] | | | | | LABORATORY ALTAGRACIA | | | | + + + + + ECHO Transesophageal (CHIQUITA) (06/11/2018 1:05 PM PDT) + + | Specimen | + + | | + + + + -----+ | Narrative | Performed At | + + -----+ | | [facility] | | Transesophageal Echocardiography Report (CHIQUITA) Demographics Patient | | | Name [facility] Room Number 270 | | | ZIYAD Patient Number [id number] Date of | | | Study 06/11/2018 Visit Number [id number] Accession | | | [id number] Interpreting Sharad Richard | | | Number Physician Date | | | of 1955 Referring Physician ELEANOR BERMUDEZ | | | VERONICA Age 62 year(s) 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 Visible portions of ascending aorta | | | and arch normal. Grade 2atherosclerotic disease of descending aorta.9. | | | Pulmonary artery [id number]. Normal pericardium. No pericardial fluid. | | [...] | Tim, Rad Results In - 06/11/2018 4:54 PM PDT Transesophageal Echocardiography Report | | ([facility]) Demographics Patient Name [facility] Room Number 270 | | ZIYAD Patient Number [id number] Date of Study 06/11/2018 Visit | | Number [id number] Interpreting Sharad | | MD Jose Manuel Number Physician Date of 1955 | | Referring Physician ELEANOR MARTIN Age 62 year(s) | | Credit Control Clerk Sanjeev Bradshaw, | | MD Sharad Richard [...] function. Trace TR.7. Pulmonic valve normal Trace W[place].8. Visible portions | | of ascending aorta and arch normal. 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 Pulmonary artery [id number]. Normal pericardium. No pericardial fluid. No pleural [...] [facility] | | | Arterial | by [facility] [address], | mmol/L | [facility] | | | | [place], [place] | | HEART | | | |Performed by [facility] [address], [place], [place] | | MEDICAL | | | [...] [facility] | [address] | [place], [place] | | | [facility] [...] | | | Normalized | Performed by [facility] [address] | mg/dL | [facility] | | | | [address], [place], [place] | | HEART | | | | [id number] | | MEDICAL | | | | [...] [facility] | [address] | [place] [address] | | | [facility] | [...] [facility] | | | Arterial | by [facility] [address], | mmol/L | [facility] | | | | [place] [address] | | HEART | | | |Performed by [facility] [address], [place] [address] | | MEDICAL | | | | [...] + + | [facility] | [address] | [place] [address] | | | [facility] | | | | | [place] [facility] [...] [facility] | | | | Performed by [facility] [address] | mmol/L | [facility] | | | | [address] [place] | | HEART | | | | [id number] | | MEDICAL | | | | [...] + | [facility] | [address] [facility] [address] | [place] [address] | | | [facility] | | | | | LABORATORY ALTAGRACIA [...] | | Screen | | | [facility] | | | | | | [facility] | | | | | [facility] | | | | | | [facility] | | | | | | [facility] | | + + + + + + | ABO | O | | REFERENCE | | | | | | [facility] | | | | | | [facility] | | | | | [facility] | | | | | | [facility] | | | | | | [facility] | | + + + + + + | Rh Type | Negative | | REFERENCE | | | | | | [facility] | | | | | | [facility] [...] + + + | Specimen Expiration Date: | RE[facility]ENCE [facility] | | | [place] | | | [facility] | | | [facility] | + + + + + + + + | Performing | Address | City/State/Zipcode | Phone Number | | Organization | | | | + + + + + | REFERENCE LAB | [address] | [place] [address] | [phone] | | [place] | | | | | [facility] [...] | | | POC | Performed by [facility] [address] | | SACRED | | | | [address] [place] | | HEART | | | | [address] | | MEDICAL | | | | [...] + | AMILCAR CARDONA | [address] | [place] [address] | | | [facility] | | | | | LABORATORY ALTAGRACIA | | | | + + + + + Oliveime INR (06/11/2018 3:12 AM PDT) + + [...] CENTER | | | | 3.5Performed by [facility] [address] | | LABORATORY | | | | [address] [place] | | CERNER | | | | [address] | | | | + + + + + + + + | Specimen | + + | Blood specimen | | (specimen) | + + + + + + + | Performing | Address | City/State/Zipcode | Phone Number | | Organization | | | | + + + + + | PROVIDEDEMIE [facility] | [address] | [place] [address] | | | [facility] | | | | | LABORATORY [...] [facility] | | | | Performed by [facility] [address] | | SACRED | | | | [address] [place] [place] | | HEART | | | | [address] | | MEDICAL | | | | [...] + + | YARELISDEMIKarly CARDONA | [address] | [place] [address] | | | [facility] | | | | | LABORATORY ALTAGRACIA [...] | | MEDICAL | | | | [facility] [address], | | CENTER | | | | [place] [address] | | LABORATORY | | | | | | CERSAMAN | | + + + + + + + + | Specimen | + + | Blood specimen | | (specimen) | + + + + + + + | Performing | Address | City/State/Zipcode | Phone Number | | Organization | | | | + + + + + | AMILCAR CARDONA | [address] | [place] [address] | | | HEART [facility] | | | | | LABORATORY [...] | | | | | seconds.Performed by [facility] | | | | | | [address], | | | | | | [place] [address] | | | | + + + + + + + + | Specimen | + + | Blood specimen | | (specimen) | + + + + + + + | Performing | Address | City/State/Zipcode | Phone Number | | Organization | | | | + + + + + | AMILCAR CARDONA | [address] | [place] [address] | | | [facility] | | | | | RIVERA FRIAS [...] [facility] | | | Source | by [facility] [address], | | SACRED | | | | [place] [address] | | HEART | | | |Performed by [facility] [address], [place] [address] | | MEDICAL | | | | [...] + + | AMILCAR CARDONA | [address] | [place] [address] | | | [facility] | | | | | LABORATORY ALTAGRACIA [...] - 1.030 | [facility] | | | [place] | | | SACRED | | | [...] | | | SOURCE | Performed by [facility] [address] | | SACRED | | | | [address] [place] | | HEART | | | | [address] | | MEDICAL | | | | [...] + + | AMILCAR CARDONA | [address] | [place] [address] | | | [facility] | | | | | LABORATORY [...] | | | POC | Performed by [facility] [address] | | SACRED | | | | [place] | | HEART | | | | [address] | | MEDICAL | | | | [...] + | AMILCAR CARDONA | [address] | [place] [address] | | | [facility] | | | | | LABORATORY CERNER [...] | | | | | seconds.Performed by [facility] | | | | | | [address], | | | | | | [place] [address] | | | | + + + + + + + + | Specimen | + + | Blood specimen | | (specimen) | + + + + + + + | Performing | Address | City/State/Zipcode | Phone Number | | Organization | | | | + + + + + | [facility] | [address] | [place] [address] | | | [facility] | | | | | LABORATORY [...] | 67 (L)Comment: eGFR<60 | >=90 | [facility] | | | GFR | consistent with impaired | mL/min/1.73m2 | SACRED | | | | kidney | | HEART | | | | function.Performed by | | MEDICAL | | | | [facility] [address], | | CENTER | | | | [place] [address] | | LABORATORY | | | | [...] + + | AMILCAR CARDONA | [address] | [place] [address] | | | [facility] | | | | | LABORATORY ALTAGRACIA [...] CENTER | | | | 3.5Performed by [facility] [address] | | LABORATORY | | | | [address] [place] | | CERNER | | | | [address] | | | | + + + + + + + + | Specimen | + + | Blood specimen | | (specimen) | + + + + + + + | Performing | Address | City/State/Zipcode | Phone Number | | Organization | | | | + + + + + | AMILCAR CARDONA | [address] | [place] [address] | | | [facility] | | | | | LABORATORY ALTAGRACIA [...] | | | POC | Performed by [facility] [address] | | SACRED | | | | [address] [place] | | HEART | | | [...] + + + + + | PROVIDECARLOS [facility]ED | [address] | [place] [address] | | | HEART [facility] | | | | | LABORATORY [...] | | | | | | The CDC recommends | | | | | | that a positive HCV | | | | | | antibody result be | | | | | | followed up with a HCV | | | | | | Nucleic Acid | | | | | | Amplification test | | | | | | ([id number]).Performed At: | | | | | | [facility] [id number] | | | | | | [address] | | | | | | [place], [place] | | | | | | [phone] Daniel | | | | | | Riya MOJICA Ph:[phone] | | | | + + + + + + + + | Specimen | + + | Blood specimen | | (specimen) | + + + + + + + | Performing | Address | City/State/Zipcode | Phone Number | | Organization | | | | + + + + + | YARELISDEMIKarly CARDONA | [address] | [place] [address] | | | [facility] | | | | | LABORATORY ALTAGRACIA [...] | | | | | seconds.Performed by [facility] | | | | | | [address], | | | | | | [place] [address] | | | | + + + + + + + + | Specimen | + + | Blood specimen | | (specimen) | + + + + + + + | Performing | Address | City/State/Zipcode | Phone Number | | Organization | | | | + + + + + | AMILCAR CARDONA | [address] | [place] [address] | | | [facility] | | | | | RIVERA FRIAS [...] | TRACEMASTER | | Duration:152 msP Horizontal [place]:32 degP Front [place]:62 degQ Onset:512 | | | msQRSD Interval:110 msQT Interval:416 msQTcB:453 msQTcF:440 msQRS | | | Horizontal [place]:199 degQRS [place]:-83 degI-40 Horizontal [place]:77 degI-40 | | | Front [place]:-74 degT-40 Horizontal [place]:242 degT-40 Front [place]:216 | | | degT Horizontal [place]:84 degT Wave [place]:69 degS-T Horizontal [place]:97 | | | degS-T Front [place]:107 degSeverity:- ABNORMAL ECG -INTERP:SINUS | | | RHYTHMINTERP:NONSPECIFIC IVCD WITH LADINTERP:INFERIOR INFARCT, | | | OLDElectronically signed by: ELIZABETH CAMPBELL 06-12-2018 11:24:19 | | |QTcB:453 ms | | |QTcF:440 ms | | |QRS Horizontal [place]:199 deg | | |QRS [place]:-83 deg | | |I-40 Horizontal [place]:77 deg | | |I-40 Front [place]:-74 deg | | |T-40 Horizontal [place]:242 deg | | |T-40 Front [place]:216 deg | | |T Horizontal [place]:84 deg | | |T Wave [place]:69 deg | | |S-T Horizontal [place]:97 deg | | |S-T Front [place]:107 deg | | |Severity:- ABNORMAL ECG - [...] + + | SARITHA REY | [address] | [place] [address] | [phone] | + + + + + Pulmonary [...] | | | | | seconds.Performed by [facility] | | | | | | [address], | | | | | | [place] [address] | | | | + + + + + + + + | Specimen | + + | Blood specimen | | (specimen) | + + + + + + + | Performing | Address | City/State/Zipcode | Phone Number | | Organization | | | | + + + + + | AMILCAR SACRED | [address] | [place] [address] | | | [facility] | | | | | LABORATORY CERNER [...] | | | | | | The CDC recommends | | | | | | that a positive HCV | | | | | | antibody result be | | | | | | followed up with a HCV | | | | | | Nucleic Acid | | | | | | Amplification test | | | | | | ([id number]).Performed At: | | | | | | [facility] [address] | | | | | | [address] | | | | | | [place], [place] | | | | | | [phone] Daniel | | | | | | L Ph:[phone] | | | | + + + [...] + + | PROVIDEDEMIE SACRED | [address] | [place] [address] | | | [facility] | | | | | LABORATORY CERNER [...] ADA | 4.3 - 6.1 % | YINE | | | A1c | recommends A1C [...] | | | | | formula.Performed by [facility] | | | | | | [address], | | | | | | [place] [address] | | | | + + + + + + + + | Specimen | + + | Blood specimen | | (specimen) | + + + + + + + | Performing | Address | City/State/Zipcode | Phone Number | | Organization | | | | + + + + + | AMILCAR CARDONA | [address] | [place] [address] | | | [facility] | | | | | LABORATORY ALTAGRACIA [...] | | | | | | [facility] | | | | | [facility] | | | | | | [facility] | | | | | | [facility] | | | | | | CENTER | | + + + + + + | Rh Type | Negative | | REFERENCE | | | | | | [facility] | | | | | | [facility] | | | | | | [facility] | | | | | | [facility] | | | | | | CENTER | | + + + + + + + + | Specimen | + + | | + + + + + | Narrative | Performed At | + + + | Specimen Expiration Date: [id number] | [facility] | | | [place] | | | [facility] | | | [facility] | + + + + + + + + | Performing | Address | City/State/Zipcode | Phone Number | | Organization | | | | + + + + + | REFERENCE [facility] | [address] | [place] [address] | [phone] | | [facility] [facility] | | | | | [facility] [...] | | Screen | | | LAB [place] | | | | | | [facility] | | | | | | [facility] | | | | | | [facility]LOOD | | | | | | CENTER | | + + + + + + + + | Specimen | + + | | + + + + + | Narrative | Performed At | + + + | Specimen Expiration Date: [id number] | RE[facility] | | | [place] | | | [facility] | | | [facility] | + + + + + + + + | Performing | Address | City/State/Zipcode | Phone Number | | Organization | | | | + + + + + | [facility] | [address] | [place] [address] | [phone] | | [facility] | | | | | [facility] [...] | | | | | | LAB [place] | | | | | | [facility] | | | | | | [facility] | | | | | | BLOOD | | | | | | CENTER | | + + + + + + + + | Specimen | + + | | + + + + + | Narrative | Performed At | + + + | Specimen Expiration Date: [id number] | [facility] | | | [place] | | | [facility] | | | [facility] | + + + + + + + + | Performing | Address | City/State/Zipcode | Phone Number | | Organization | | | | + + + + + | RE[facility] | [address] | [place] [address] | [phone] | | [facility] | | | | | [facility] [...] | | | | | | [facility] [place] | | | | | | [facility] | | | | | | [facility] | | | | | | [facility]LOOD | | | | | | CENTER | | + + + + + + | Rh Type | Negative | | REFERENCE | | | | | | [facility] [place] | | | | | | [facility] | | | | | | [facility] | | | | | | BLOOD | | | | | | CENTER | | + + + + + + | Antibody | Positive | | REFERENCE | | | Screen | | | LAB [place] | | | | | | [facility] [...] + + + | Specimen Expiration Date: [id number] | [facility] | | | [place] | | | [facility] | | | [facility] | + + + + + + + + | Performing | Address | City/State/Zipcode | Phone Number | | Organization | | | | + + + + + | RE[facility] | [address] | [place] [address] | [phone] | | [place] | | | | | [facility] [...] | | | | | seconds.Performed by [facility] | | | | | | [address], | | | | | | [place] [address] | | | | + + + + + + + + | Specimen | + + | Blood specimen | | (specimen) | + + + + + + + | Performing | Address | City/State/Zipcode | Phone Number | | Organization | | | | + + + + + | AMILCAR [facility] | [address] | [place] [address] | | | [facility] | | | | | RIVERA FRIAS [...] | proximal 40% LAD, 95% ostial septal automobile technician, 70% mid and distal LAD, 100% mid [...] LAD, 95% | | | ostial septal automobile technician, 70% mid and distal LAD, 100% mid [...] lateral castillo from | | | prior [place]. 4. Mild destinee infarct ischemia. LARGE SEVERE inferior and | | | Lateral [place]. 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 | | Duration:176 msP Horizontal [place]:19 degP Front [place]:70 degQ Onset:512 | | | msQRSD Interval:110 msQT Interval:444 msQTcB:480 msQTcF:467 msQRS | | | Horizontal [place]:157 degQRS [place]:-77 degI-40 Horizontal [place]:75 degI-40 | | | Front [place]:-59 degT-40 Horizontal [place]:240 degT-40 Front [place]:267 | | | degT Horizontal [place]:91 degT Wave [place]:68 degS-T Horizontal [place]:98 | | | degS-T Front [place]:103 degSeverity:- ABNORMAL ECG -INTERP:SINUS | | | RHYTHMINTERP:NONSPECIFIC IVCD WITH LADINTERP:INFERIOR INFARCT, | | | OLDElectronically signed by: ELIZABETH CAMPBELL 06-12-2018 11:25:24 | | |QTcB:480 ms | | |QTcF:467 ms | | |QRS Horizontal [place]:157 deg | | |QRS [place]:-77 deg | | |I-40 Horizontal [place]:75 deg | | |I-40 Front [place]:-59 deg | | |T-40 Horizontal [place]:240 deg | | |T-40 Front [place]:267 deg | | |T Horizontal [place]:91 deg | | |T Wave [place]:68 deg | | |S-T Horizontal [place]:98 deg | | |S-T Front [place]:103 deg | | |Severity:- ABNORMAL ECG - [...] + | WAM[facility] TRAC[facility]AST[facility] | [address] | [place] [address] | [phone] | + + + + + Magnesium (06/09/2018 3:07 AM PDT) + + + +--------- ----+ + | Component | Value | Ref Range | Performe d | Pathologist | | | | | At | Signature | + + + +--------- ----+ + | Magnesium | 2.1Comment: Performed | 1.7 - 2.4 mg/dL | [facility] | | | | by [facility] [address], | | SACRED | | | | [place] [address] | | HEART | | | |Performed by [facility] [address], [place] [address] | | MEDICAL | | | | [...] SACRED | [address] | [place] [address] | | | [facility] | | | | | LABORATORY JAMINNER [...] | | | | | | LABORA URI | | | | | | CERNER [...] ENCE | | | Basophils | by [facility] [address], | K/uL | SACRED | | | | [place] [address] | | HEART | | | |Performed by [facility] [address], [place] [address] | | MEDICA L | | | [...] + + | AMILCAR SACRFAUSTO | [address] | [place] [address] | | | [facility] | [...] | | MEDICAL | | | | [facility] [address], | | CENTER | | | | [place] [address] | | LABORATORY | | | | [...] CARDONA | [address] | [place] [address] | | | [facility] | | | | | LABORATORY CERNER [...] | | | | | TroponinPerformed by [facility] | | | | | | [address], | | | | | | [place] [address] | | | | + + + + + + + + | Specimen | + + | Blood specimen | | (specimen) | + + + + + + + | Performing | Address | City/State/Zipcode | Phone Number | | Organization | | | | + + + + + | AMILCAR CARDONA | [address] | [place] [address] | | | [facility] | | | | | RIVERA FRIAS [...] | TRACEMASTER | | Duration:200 msP Horizontal [place]:19 degP Front [place]:58 degQ Onset:512 | | | msQRSD Interval:110 msQT Interval:404 msQTcB:506 msQTcF:469 msQRS | | | Horizontal [place]:184 degQRS [place]:265 degI-40 Horizontal [place]:78 degI-40 | | | Front [place]:269 degT-40 Horizontal [place]:240 degT-40 Front [place]:259 | | | degT Horizontal [place]:77 degT Wave [place]:63 degS-T Horizontal [place]:83 | | | degS-T Front [place]:99 degSeverity:- ABNORMAL ECG -INTERP:SINUS | | | RHYTHMINTERP:NONSPECIFIC IVCD WITH LADINTERP:INFERIOR INFARCT, | | | OLDElectronically signed by: ELIZABETH CAMPBELL 06-12-2018 11:24:43 | | |QTcB:506 ms | | |QTcF:469 ms | | |QRS Horizontal [place]:184 deg | | |QRS [place]:265 deg | | |I-40 Horizontal [place]:78 deg | | |I-40 Front [place]:269 deg | | |T-40 Horizontal [place]:240 deg | | |T-40 Front [place]:259 deg | | |T Horizontal [place]:77 deg | | |T Wave [place]:63 deg | | |S-T Horizontal [place]:83 deg | | |S-T Front [place]:99 deg | | |Severity:- ABNORMAL ECG - [...] + + | W[facility] TR[facility] | [address] | [place] [address] | [phone] | + + + + + Troponin [...] by | | | | | | [facility] [address], | | | | | | [place] [address] | | | | + + + + + + + + | Specimen | + + | Blood specimen | | (specimen) | + + + + + + + | Performing | Address | City/State/Zipcode | Phone Number | | Organization | | | | + + + + + | AMILCAR CARDONA | [address] | [place] [address] | | | [facility] | | | | | LABORATORY ALTAGRACIA [...] NOHEMY [facility] | | | | by [facility] [address], | | SACRED | | | | [place] [address] | | HEART | | | |Performed by [facility] [address], [place] [address] | | MEDICAL | | | | [...] + + | AMILCAR CARDONA | [address] | [place] [address] | | | [facility] | | | | | RIVERA FRIAS [...] | 81 (L)Comment: eGFR<60 | >=90 | [facility] | | | GFR | consistent with impaired | mL/min/1.73m2 | SACRED | | | | kidney | | HEART | | | | function.Performed by | | MEDICAL | | | | [facility] [address], | | CENTER | | | | [place] [address] | | LABORATORY | | | | [...] + | AMILCAR CARDONA | [address] | [place] [address] | | | [facility] | | | | | LABORATORY ALTAGRACIA [...] | | MATTI Herrera at [address] | | MEDICAL | | | | [...] | | | | | TroponinPerformed by [facility] | | | | | | [address], | | | | | | [place] [address] | | | | + + + + + + + + | Specimen | + + | Blood specimen | | (specimen) | + + + + + + + | Performing | Address | City/State/Zipcode | Phone Number | | Organization | | | | + + + + + | [facility] | [address] | [place] [address] | | | [facility] | | | | | LABORATORY CERNER [...] Critical TROP called to | ng/mL | SACR[facility]O | | | | and read back by 6S | | HEART | | | | HECTOR F at 1710 by | | MEDICAL | [...] by | | | | | | [facility] [address], | | | | | | [place] [address] | | | | + + + + + + + + | Specimen | + + | Blood specimen | | (specimen) | + + + + + + + | Performing | Address | City/State/Zipcode | Phone Number | | Organization | | | | + + + + + | AMILCAR CARDONA | [address] | [place] [address] | | | [facility] | | | | | LABORATORY CERNER [...] [facility] | | | | Performed by [facility] [address] | | SACRED | | | | [address] [place] | | HEART | | | | [address] | | MEDICAL | | | | [...] + + | AMILCAR CARDONA | [address] | [place] [address] | | | [facility] | | | | | LABORATORY CERNER [...] chest. Signed by: | | | MD Stone Steve Sign Date/Time: 06/07/2018 9:27 AM | | [...] Signed by: MD Stone Steve | | Sheila Date/Time: 06/07/2018 9:27 AM | + + [...] | | | | | battery.Performed by [facility] | | | | | | [address], | | | | | | [place] [address] | | | | + + + + + + + + | Specimen | + + | Urine specimen | | (specimen) | + + + + + + + | Performing | Address | City/State/Zipcode | Phone Number | | Organization | | | | + + + + + | AMILCAR CARDONA | [address] | [place] [address] | | | [facility] | | | | | RIVERA FRIAS [...] 0.305 (AA)Comment: | 0.000 - 0.069 | [facility] [...] | | | | | [place].Performed by [facility] [address] | | | | | | [address] [place] | | | | | | [address] | | | | + + + + + + + + | Specimen | + + | Blood specimen | | (specimen) | + + + + + + + | Performing | Address | City/State/Zipcode | Phone Number | | Organization | | | | + + + + + | AMILCAR CARDONA | [address] | [place] [address] | | | [facility] | | | | | LABORATORY ALTAGRACIA [...] by | 0 - 69 ng/mL | [facility] | | | SERUM | [facility] [address], | | SACRED | | | | [place] [address] | | HEART | | | |Performed by [facility] [address], [place] [address] | | MEDICAL | | | | [...] + + | AMILCAR CARDONA | [address] | [place] [address] | | | [facility] | | | | | LABORATORY CERNER [...] U/L | [facility] | | | | [facility] [address], | | SACRED | | | | [place] [address] | | HEART | | | |Performed by [facility] [address], [place] [address] | | MEDICAL | | | | [...] + + + + + | PROVIDEDEMIE SACRFAUSTO | [address] | [place] [address] | | | HEART [facility] | | | | | LABORATORY [...] | | MEDICAL | | | | [facility] [address], | | CENTER | | | | [place] [address] | | LABORATORY | | | | [...] + + | AMILCAR CARDONA | [address] | [place] [address] | | | [facility] | | | | | LABORATORY ALTAGRACIA [...] ENCE | | | Basophils | by [facility] [address], | K/uL | SACRED | | | | [place] [address] | | HEART | | | |Performed by [facility] [address], [place] [address] | | MEDICA L | | | [...] + + | [facility] | [address] | [place] | | | [facility] | [...] | [facility] | | | | by [facility] [address], | | SACRED | | | | [place] | | HEART | | | |Performed by [facility] [address], [place] | | MEDICAL | | | [...] + + | AMILCAR CARDONA | [address] | [place] [address] | | | [facility] | | | | | LABORATORY ALTAGRACIA [...] U/L | [facility] | | | | [facility] [address], | | SACRED | | | | [place] [address] | | HEART | | | |Performed by [facility] [address] [place] [address] | | MEDICAL | | | | [...] + + | AMILCAR CARDONA | [address] | [place] [address] | | | [facility] | | | | | LABORATORY CERNER [...] - 1.030 | [facility] | | | [place] | | | SACRED | | | [...] | | | SOURCE | Performed by [facility] [address] | | SACRED | | | | [address] [place] | | HEART | | | | [address] | | MEDICAL | | | | [...] + + | YARELISDEMIKarly CARDONA | [address] | [place] [address] | | | [facility] | | | | | LABORATORY ALTAGRACIA [...] + | Diagnosis | + + | CVD (cardiovascular disease) Unspecified cardiovascular disease | + + documented in this encounter Administered Medications + +--------+ +--------+------+------+ | Medication Order | MAR | Action | Dose | Rate | Site | | | Action | Date | | | | + +--------+ +--------+------+------+ | acetaminophen (TYLENOL) tablet | Given | 06/15/20 | 650 mg | | | | 650 mg 650 mg, Oral, EVERY 6 | | 18 2:20 | | | | | HOURS (4 times per day), First | | PM PDT | | | | | dose on 06/13/18 at 0830 | | | | | | + +--------+ +--------+------+------+ +-------+ +--------+---+---+ | Given | 06/15/20 | [...] | + +---+ + +-------+ +-------+---+---+ | atorvaSTATin (LIPITOR) tablet | Given | 06/14/20 | 40 mg | | | | 40 mg 40 mg, Oral, NIGHTLY, | | 18 9:29 | | | | | First dose on [facility] 06/11/18 at 2100 | | PM PDT [...] PDT | | | | | Starting [facility] 06/11/18 at 1635, | | | [...] +---+---+ | | | +---+---+ + +-------+ +---+---+ + | heparin 1,000 units/mL 3,000 | Given | 06/11/20 | | | Surgical | | Units in sodium chloride 0.9% | | 18 11:18 | | | Site | | (NS) 300 mL Optesia Mixture PRN, | | AM PDT | | | | | Starting [facility] 06/11/18 at 1118, | | | | | | | Intra-op | | | | | | + +-------+ +---+---+ + + +---+ | | | + +---+ [...] PDT | | | | | Starting [facility] 06/11/18 at 1635, | | | [...] +---+---+ | | | +---+---+ + +-------+ +--------+---+ + | papaverine injection PRN, | Given | 06/11/20 | 180 mg | | Surgical | | Starting [facility] 06/11/18 at 1118, | | 18 11:18 | | | Site | | Intra-op | | AM PDT | | | | + +-------+ +--------+---+ + +---+---+ | | | +---+---+ + [...] | | | +---+---+ + +-------+ + +---+ + | vancomycin injection PRN, | Given | 06/11/20 | 1,500 mg | | Surgical | | Starting [facility] 06/11/18 at 1120, | | 18 11:20 | | | Site | | Intra-op | | AM PDT | | | | + +-------+ + +---+ + +---+---+ | | | +---+---+ + +-------+ + +---+ + | vancomycin injection PRN, | Given | 06/11/20 | 1,500 mg | | Surgical | | Starting [facility] 06/11/18 at 1120, | | 18 11:20 | | | Site | | Intra-op | | AM PDT | | | | + +-------+ + +---+ + +---+---+ | | | +---+---+ documented in [...]
--- OUTSIDE RECORDS SUMMARY | ~2019-09-08 | XMS | Encounter Summary ---
Demographics + + + | Address | [address] | | | [place] [address] | + + + | Home Phone | | + + + | Preferred Language | Unknown | + + + | Marital Status | | + + + | Confucianist Affiliation | 1041 | + + + | Race | Unknown | + + + | Ethnic Group | Unknown | + + + Author + + + | Author | [facility] | | | and Ankitana | + + + | Organization | [facility] | | | and [...] Team Providers + +------+ + | Care Machine Operator Hay Stacker Name | Role | Phone | + [...] + + | 05/20/ | Office | [facility] [place] | Jessy Agarwal MD | History of anemia | | 2019 | Visit | SLEEP DISORDER [address] | [address] | (Primary Dx) | | | | [address] | [place] | | | | | [place] [address] | [id number] | | | | | [phone] | | | +--------+---------+ + + + [...] breaths does not meet criteria for an foil operator ea or hypopnea. SLEEP STUDY HISTORY: None. REVELANT MEDICATIONS: Quetiapine, Fluoxetine, and lorazepam as needed. SUBJECTIVE: The patient rated sleep quality during sleep study as usual. Clinical Support Tech note: patient tried and tolerated medium airfit [...] | | | | | | [place], | | | | | | [place] [address] | | | | | | [phone] | | | | | | | [...]
--- OUTSIDE RECORDS SUMMARY | ~2019-09-08 | XMS | Encounter Summary ---
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
--- OUTSIDE RECORDS SUMMARY | ~2019-09-08 | XMS | Encounter Summary ---
Demographics + + + | Address | [address] | | | [place] [address] | + + + | Home Phone | | + + + | Preferred Language | Unknown | + + + | Marital Status | | + + + | Sabianism Affiliation | 1041 | + + + | Race | Unknown | + + + | Ethnic Group | Unknown | + + + Author + + + | Author | [facility] | | | and Ankitana | + + + | Organization | [facility] | | | and [...] Team Providers + +------+ + | Care Junior Designer Name | Role | Phone | + +------+ + | Kiran Oneill DO | PCP | | + +------+ + Reason for Visit Evaluate & Treat (Routine) +--------+--------+ + + + + | Status | Reason | Specialty | Diagnoses / | Referred By | Referred To | | | | | Procedures | Contact | Contact | +--------+--------+ + + + + | Closed | | Cardiology | Diagnoses | [facility] | | | | | ESTABLISH | Kiran M, DO | Cardiology | | | | | [place] | [address] | [address] | | | | | CABG | CONF[place]ATED | Kimani Harman, | | | | | Procedures | 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, | (arteriosclerotic | | | | [place] [address] | [place] [address] | heart disease); | | | | [phone] | [phone] | Mixed hyperlipidemia | | | | | | | [...] + + + | Blood Pressure | 142/82 | 10/01/2018 10:45 AM | | | | | PST | | + + + + + | Pulse | 69 | 10/01/2018 10:45 AM | | | | | PST | | + + + + + | Temperature | - | - | | + + + + + | Respiratory Rate | 18 | 10/01/2018 10:45 AM | | | | | PST | | + + + + + | Oxygen Saturation | - | - | | + + + + + | Inhaled Oxygen | - | - | | | Concentration | | | | + + + + + | Weight | 70.6 kg (155 lb 10.3 | 10/01/2018 10:45 AM | | | | oz) | PST | | + + + + + | Height | 172.7 cm (5' 8") | 10/01/2018 10:45 AM | | | | | PST | | + + + + + | Body Mass Index | 23.67 | 10/01/2018 10:45 AM | | | | | PST [...] of this encounter Patient Instructions Patient Instructions Mercy Powers RN - 10/01/2018 10:30 AM PST Increase Metoprolol to 100mg one time daily. You can use your 50mg tablets and take 2 daily until they are gone, when you refill, a new prescription for 100mg tablets - one daily has been sent to your pharmacy. Increase Atorvastatin to 80mg one time daily. You can use your 40mg tablets and take 2 luis miguel y until they are gone, when you refill, a new prescription for 80mg tablets - one daily has been sent to your pharmacy. Check blood pressure and pulse twice daily, bring log with you to your next appointment in Cardiology. Follow up appointment: 2-3 weeks Provider: SALVATORE Gonzales Date: Check-In Time: Blood test: Fasting- 12 hours prior to test, no food, no caffiene, water is ok Date Due: 3 months after increase of Atorvastatin Where to go for labs: Lab of your choice, please see lab orders, take them with you to the lab. documented in this encounter Progress Notes Mariangel Siddiqi MD - 10/01/2018 10:30 AM PSTFormatting of this note might be different f rom the original. PATIENT NAME: Smitha Pichardo : 1955: AGE: 63 y.o. REFERRED BY: Kiran Oneill PRIMARY CARE: DO ROMANA Fowler PATIENT OFFICE VISIT Date of Service: 10/01/18 HISTORY OF PRESENT ILLNESS: Smitha Pichardo is a 63 y.o. female with a history of coronary artery disease with isch emia cardiomyopathy, hypertension, hyperlipidemia, tobacco use and stage III chronic kidney disease . She is being seen today to establish care. Patient was in her usual state of health until 05/11/12 she experienced a heart attack that l ed her to go into cardiac arrest when she was at home in [facility]. Her daughter found her and called the signal operator technical. It took them about ten mintues for her to revive. She was doing prett y well between 2011 until recent when she went to [place] in [place] on 06/08/18 because she was not feeling well and ended up getting abnormal stress test, heart cath that revealed severe three-vessel disease and underwent a triple by pass surgery. Today, patient stated that she is feeling 100% better. She has mild shortness of breath on exertion but denies any chest pain. Patient is physically active and exercises regularly by walking a block with her cane. There is no chest pain or chest discomfort both at rest and on exertion. There is no palpitation dizziness or lightheadedness. There is no ankle or leg swelling. Patient can sleep on one pillow at night without difficulty breathing. CURRENT PROBLEMS Patient Active Problem List Diagnosis Hypertension Ischemic cardiomyopathy Smoker - Daily ASHD (arteriosclerotic heart disease) Dyslipidemia Cellulitis and [...] troponin level Methamphetamine use S/P CABG x - 2017 Status post coronary artery stent placement Beta Blockers - Daily Use Cardiac LV ejection fraction 30-35% Kidney disease, chronic, stage II (GFR 60-89 ml/min) H/O TN (myocardial infarction) Hepatitis C Risk factors for obstructive sleep apnea Cardiac arrest with ventricular fibrillation MEDICAL, SURGICAL, AND PERSONAL HISTORY Past Surgical History: Procedure Laterality Date CARDIAC CATHERIZATION 05/11/2012 intra-aortic balloon pump placement, 05/11/12 CARDIAC CATHERIZATION Right 06/09/2018 Procedure: CV Cor Angio; Surgeon: Shad Schuler MD; Location: [facility] CV LAB CARDIAC CATHERIZATION Right 06/09/2018 Procedure: CV LHC; Surgeon: Shad Schuler MD; Location: [facility] CV LAB CARDIAC CATHERIZATION Right 06/09/2018 Procedure: CV LV; Surgeon: Shad Schuler MD; Location: [facility] CV LAB CATARACT REMOVAL Left 08/13/2018 Procedure: LEFT EXTRACTION CATARACT WITH LENS IMPLANT; Surgeon: Seamus Richard MD; Loc ation: [facility] MAIN OR CATARACT REMOVAL Right 09/10/2018 Procedure: RIGHT EXTRACTION CATARACT WITH LENS IMPLANT; Surgeon: Seamus Richard MD; Lo cation: [facility] MAIN OR CORONARY ANGIOPLASTY WITH STENT PLACEMENT 05/11/2012 Percutaneous transluminal coronary angioplasty and stenting of the left circumflex with th rombectomy of the left circumflex CORONARY ARTERY BYPASS GRAFT N/A 06/11/2018 Procedure: CORONARY ARTERY BYPASS GRAFT X3 EVH JU; Surgeon: Hemanth Webster MD; Loc ation: [facility] MAIN OR HYSTERECTOMY 1995 Family History Problem Relation Age of Onset Adopted: Yes Cancer Brother Coronary artery disease Other Hypertension Daughter Alive X1 daughter w/HTN Hypotension Daughter Alive X1 other daughter w/hypotension Family Status Relation Status Mother Father Brother Other Alive Daughter (Not Specified) Daughter (Not Specified) Social History Social History Marital status: Spouse name: N/A Number of children: N/A Years of education: N/A Social History Main Topics Smoking status: Current Every Day Smoker Packs/day: 0.25 Years: 20.00 Types: Cigarettes Smokeless tobacco: Never Used Comment: states she is smoking 2-3 cigarettes/day now as she tries to quit. Alcohol use No Comment: She does not drink alcohol. Drug use: Yes Frequency: 4.0 times per week Types: Marijuana Comment: She reports marijuana use. She denies any recent heroine use fro the past few y ears. In her youth she reports using cocaine and amphetamines as well. Sexual activity: Not Asked Other Topics Concern None Social History Narrative 02/17: Update: Recent heroine use Patient is a with two daughters. She lives with her daughter, Miriam, in [place]. She is on disability. She is a former cigarette smoker with a 1 pack per day for 20 years histo ry. Denies smokeless tobacco use. She does not drink alcohol. She reports illicit drug use, marijuana. She used heroin every day for three years, and states she was able to quit 05/2012 . She drinks 4-5 cups of coffee daily and one soda a week. She does walk every day for exerc ise. FAMILY HISTORY: She is adopted. Her children are healthy except for one daughter with hypertension and the other daughter with hypotension. CURRENT MEDICATIONS Current Outpatient Prescriptions Medication Sig Dispense Refill aspirin 81 mg EC tablet Take 81 mg by mouth Daily. atorvaSTATin (LIPITOR) 40 mg tablet Take 1 tablet by mouth nightly. 30 tablet 0 calcium-vitamin D (OSCAL) 500 mg-200 units per tablet Take 2 tablets by mouth 3 times d aily (with meals). (Patient not taking: Reported on 10/01/2018) 90 tablet 3 ferrous sulfate 325 mg tablet Take 1 tablet by mouth 2 times daily (with breakfast & di nner). 60 tablet 0 FLUoxetine (PROZAC) 20 mg capsule Take 20 mg by mouth Daily. ibuprofen (ADVIL,MOTRIN) 600 MG tablet Take 1 tablet by mouth every 6 hours as needed f or Pain. 60 tablet 0 lisinopril (PRINIVIL, ZESTRIL) 20 mg tablet Take 10 mg by mouth Daily. LORazepam (ATIVAN) 1 mg tablet Take 1 tablet by mouth every 6 hours as needed for Anxie ty. 20 tablet 0 metoprolol succinate (TOPROL-XL) 50 mg 24 hr tablet Take 50 mg by mouth Daily. pantoprazole (PROTONIX) 20 mg tablet Take 40 mg by mouth every morning (before breakfas t). Polysaccharide Iron Complex 50 MG CAPS Take 1 capsule by mouth 3 times daily (with meal s). 90 capsule 2 QUEtiapine (SEROQUEL) 100 mg tablet Take 100 mg by mouth nightly. No current facility-administered medications for this visit. ALLERGIES No Known Allergies ROS Review of Systems Constitutional: Negative for chills, diaphoresis, fever, malaise/fatigue and weight loss. HENT: Negative for congestion, hearing loss, nosebleeds and tinnitus. Dental Problems = No Eyes: Negative for blurred vision and double vision. Respiratory: Negative for shortness of breath. Cardiovascular: Negative for chest pain, palpitations and leg swelling. Gastrointestinal: Negative for blood in stool, constipation, diarrhea, nausea and vomiting. Genitourinary: Negative for dysuria, frequency, hematuria and urgency. Musculoskeletal: Positive for joint pain. Negative for back pain, falls, myalgias and neck pain. Gait Problems = No Skin: Negative for itching and rash. Neurological: Negative for dizziness, tingling, tremors, speech change, seizures, loss of c onsciousness and weakness. Lightheaded = No Endo/Heme/Allergies: Does not bruise/bleed easily. Psychiatric/Behavioral: Negative for memory loss. The patient is not nervous/anxious and do es not have insomnia. OBJECTIVE: PHYSICAL EXAM BP 142/82 | Pulse 69 | Resp 18 | Ht 1.727 m (5' 8") | Wt 70.6 kg (155 lb 10.3 oz) | BM I 23.67 kg/m Physical Exam Constitutional: She appears well-developed and well-nourished. No distress. Neck: Normal carotid pulses, no hepatojugular reflux and no JVD present. Carotid bruit is n ot present. Cardiovascular: Normal rate, regular rhythm, S1 normal, S2 normal, normal heart sounds, int act distal pulses and normal pulses. PMI is not displaced. Exam reveals no gallop, no S3, no S4 and no friction rub. No murmur heard. Pulses: Carotid pulses are 2+ on the right side, and 2+ on the left side. Dorsalis pedis pulses are 2+ on the right side, and 2+ on the left side. Pulmonary/Chest: Effort normal and breath sounds normal. No accessory muscle usage. No resp iratory distress. She has no wheezes. She has no rhonchi. She has no rales. Abdominal: Normal appearance, normal aorta and bowel sounds are normal. She exhibits no abd ominal bruit. There is no hepatosplenomegaly. There is no tenderness. Musculoskeletal: She exhibits no edema. Neurological: She is alert. Gait normal. Skin: Skin is warm and dry. Psychiatric: She has a normal mood and affect. Her mood appears not anxious. She does not e xhibit a depressed mood. ECG: Normal sinus rhythm. Heart rate of 62 bpm. LAB RESULTS: LIPID No results found for: CHOL, TRIG, HDL, LDL, CHOLHDL, LDLEX, HDLEX, TRIGEX, CHOLEX CHEMISTRY Lab Results Component Value Date GLU 110 (H) 08/13/2018 NA 136 08/13/2018 K 5.1 08/13/2018 CL 107 08/13/2018 CO2 23 (L) 08/13/2018 CALCIUM 8.9 08/13/2018 ALKPHOS 181 (H) 08/13/2018 AST 27 08/13/2018 ALT 20 08/13/2018 BILITOT 0.5 08/13/2018 CREA 1.00 08/13/2018 BUN 28 (H) 08/13/2018 EGFR 38 (L) 06/15/2018 HEMATOLOGY Lab Results Component Value Date WBC 8.7 08/13/2018 HGB 11.0 (L) 08/13/2018 HCT 36.5 08/13/2018 PLT 350 08/13/2018 I reviewed records from Kiran Oneill MD for office visit on 07/15/18. Referred to cardiol ogist. ASSESSMENT: 1. Coronary artery disease with ischemia cardiomyopathy A. History cardiac arrest post unknown stenting in 2011 at [facility] in [place] B. Echocardiogram 2D , M-mode, Doppler and color Doppler on 05/11/12 shows, left ventricle: severe hypokinesis of the posterior, apical and lateral castillo, EF estimated at 25%, size wa s normal, left atrium: size was normal, there was mild annular calcification, valve structu re was normal, there was normal leaflet separation. Doppler: there transmitral velocity was within normal range, there was no evidence for stenosis, there was no CC: By George Victoria MD and Slick Hernandez Echocardiogram on 01/13/14 shows, a two-dimensional transthoracic echocardiogram with M- mode, pulsed wave and color Doppler was performed, the study was diagnostic quality, normal left ventricular size and the global systolic function at the lower limit of normal LVEF 50% . Moderate-severe hypokinesis of the inferior wall, thickened mitral valve with mild mitral regurgitation, sclerotic aortic valve without stenosis or regurgitation, normal right ventri sarah size and function. By MD. Robson Anthony Echocardiogram on 02/23/15 shows, the left ventricle is grossly normal size, there is no rmal left ventricular wall thickness. Basal infero-posterior severe hypokinesis noted as pre viously seen on 01/13/2014. The visually estimated LV ejection fraction is 55%, the right kelechi tricle is normal in size and function, the left atrium is mildly dilated, the mitral valve l eaflets appear thickened, but open well, no obvious valvular vegetation detected. There is m ild mitral regurgitation, aortic valve leaflets appear mildly thickened, but open normally, no obvious valvular vegetation detected. No hemodynamically significant valvular aortic sten osis. No aortic insufficiency is present, the pulmonic valve appears normal in structure and function, the tricuspid valve is grossly normal in appearance. No obvious valvular vegetati on detected. There is mild tricuspid regurgitation, doppler findings suggest moderate pulmon farhan hypertension, estimated PA pressure is 47 mmHg. E. Echocardiogram on 08/27/16 shows normal biventricular chamber size and systolic functio n, the estimated LVEF is 55%, normal valvular function, no vegetation are seen, pulmonary pr essure could not be estimated. F. Nuclear stress test on 06/09/18 shows High risk study due to ischemia with remote infarct ion, low EF and poor exercise tolerance, anterior septal ischemia, mid to apical. Moderate s everity, cardiomyopathy, EF calculated 32% - may be off due to total lack of counts in the i nferior and lateral castillo from prior TN, mild destinee infarct ischemia. LARGE SEVERE inferior a nd Lateral TN. By Shad Schuler MD G. Left heart cath on 06/09/18 shows, severely calcified coronaries with severe three-vessel CAD including 60% distal left main, 90% ostial circumflex, 99% proximal circumflex, obtuse marginal 4 and 5 disease, ostial and proximal 40% LAD, 95% ostial septal louver mortiser operator, 70% mid and distal LAD, 100% mid RCA with left to right collaterals to a medium PDA and posterolate ral, Ischemic cardiomyopathy with a moderate very severe mid to basal inferior wall motion a bnormalities, anterolateral wall motion abnormality, hyperkinetic anterior wall and apex, ov erall EF about 37%, normal LV end-diastolic pressure, 10-12 mmHg, severe mitral annular calc ification. No significant mitral regurgitation. By Shad Schuler MD. H. CABG on 06/11/18 shows coronary artery bypass grafting x3, GOODMAN-LAD, RSVG-OM2 and RSVG-PD A, endoscopicleft greater saphenous vein harvest. By Hemanth Webster MD. I. CHIQUITA on 06/11/18 shows, pre-procedure Summary Dx:, moderately reduced LV systolic functio n. Visually estimated LVEF 35%, normal LV size and shape, normal wall thickness, normal RV s ize with normal function, no obvious atrial enlargement. KEZIA normal size without SEC, masses , or thrombi. IAS intact, no PFO detected, mitral valve normal structure and function. Trace MR with central jet. moderate MAC, trileaflet aortic valve with normal structure and functi on, no significant aortic stenosis. No AI, tricuspid valve normal structure and function. Tr lolis TR, pulmonic valve normal Trace SD, visible portions of ascending aorta and arch normal, grade 2 atherosclerotic disease of descending aorta, pulmonary artery normal, normal perica rdium. No pericardial fluid. No pleural fluid. Post-procedure, LV function is improved to b orderline with LVEF=50%, previously severely hypokinetic inferolateral segments are improved , no change in right ventricular function compared to preop, no change in valves compared to preop, no change in visible portions of aorta after decannulation, LV and RV function uncha nged after sternal closure. J. Today, patient stated that she is feeling 100% better. She has mild shortness of nikhil th on exertion but denies any chest pain. Patient is physically active and exercises regular ly by walking a block with her cane. She is in a class II of [place] Heart Association functional class. There is no fluid re tention on physical examination. 2. Hypertension A. Blood pressure in office is marginally elevated. 3. Hyperlipidemia A. Patient is on lipitor 40 mg once a day. B. Lipitor increase in office to 80 mg. 4. Tobacco use A. She smokes one cigarette a day. 5. Stage III chronic kidney disease A. eGFR on 08/13/18 is 56. PLAN: 1. I spend time at length talking about natural course, treatment and prognosis of CAD 2. Increase metoprolol XL to 100 mg once a day to treat heart failure and reduced blood pre ssure. 3. Increase lipitor to 80 once day. Patient has history of CAD. Guidelines recommend high -intensity statin. 4. Check blood pressure x 2 weeks. 5. LFT and lipid panel in three months. 6. I recommend smoking cessation. Over 10 min spent counseling for smoking addiction and ce ssation. 7. I recommend a therapeutic lifestyle change including walking 30 minutes a day, choosing healthy choices of diet , including DASH diet and weight reduction. 8. I recommend pneumonia and shingles vaccine. She already had flu shot this year. 9. Repeat echocardiogram to assess left ventricular systolic function before the return. 10. Follow up in three weeks with SALVATORE Case on heart failure program. I, China De La Cruz, am acting as a scribe on behalf of, and in the presence of Mariangel gomez MD. I have reviewed and edited this note. China De La Cruz, Compliance Clerk 10/01/2018 I, Mariangel Siddiqi MD, personally performed the services described in this documentation, as scribed in my presence and it is both accurate and complete. China De La Cruz Compliance Clerk 10:48 Electronically signed by: Mariangel Siddiqi MD [facility] 10/01/2018 Portions of this chart may have been created with [employer] voice recognition software. Occasi onal wrong-word or sound-alike substitutions may have occurred due to the inherent meyers itations of voice recognition software. Please read the chart carefully and recognize, using context, where these substitutions have occurred. documented in this encounter Plan of Treatment +--------+---------+ + + + | Date | Type | Specialty | Care Team | Description | +--------+---------+ + + + | 10/28/ | Office | Cardiology | Carol, | | | 2019 | Visit | | SALVATORE Moreno [address] | | | | | | [place], | | | | | | [place] [address] | | | | | | [phone] | | | | | | | | +--------+---------+ + + + + +------+--------+ + + | Name | Type | Priori | Associated Diagnoses | Order Schedule | | | | ty | | | + +------+--------+ + + | Lipid Panel | Lab | Routin | ASHD | Expected: | | | | e | (arteriosclerotic | 12/30/2018, Expires: | | | | | heart disease) | 10/01/2019 | | | | | Mixed hyperlipidemia | | + +------+--------+ + + | Hepatic Function | Lab | Routin | ASHD | Expected: | | Panel | | e | (arteriosclerotic | 12/30/2018, Expires: | | | | | heart disease) | 10/01/2019 | | | | | Mixed hyperlipidemia | | + +------+--------+ + + documented as of this encounter Procedures + +--------+ + + + | Procedure Name | Priori | Date/Time | Associated Diagnosis | Comments | | | ty | | | | + +--------+ + + + | ECG 12 LEAD | Routin | 10/01/2018 | Chest pain | Results for this | | | e | 10:25 AM | syndrome | procedure are in the | | | | PST | | results section. | + +--------+ + + + documented in this encounter Results ECG 12 lead (10/01/2018 10:25 AM PST) + + + + + + | Component | Value | Ref Range | Performed | Pathologist | | | | | At | Signature | + + + + + + | VENTRICULAR | 69 | BPM | [facility] | | | RATE EKG | | | | | + + + + + + | ATRIAL RATE | 69 | BPM | [facility] | | + + + + + + | P-R | 168 | ms | [facility] | | | INTERVAL | | | | | + + + + + + | QRS | 110 | ms | [facility] | | | DURATION | | | | | + + + + + + | Q-T | 448 | ms | [facility] | | | INTERVAL | | | | | + + + + + + | Q-T | 480 | ms | [facility] | | | INTERVAL | | | | | | (CORRECTED) | | | | | + + + + + + | P WAVE AXIS | 67 | degrees | [facility] | | + + + + + + | QRS AXIS | -50 | degrees | [facility] | | + + + + + + | T AXIS | 69 | degrees | [facility] | | + + + + + + | INTERPRETAT | Normal sinus rhythmLeft | | [facility] | | | ION TEXT | anterior fascicular | | | | | | blockInferior infarct , | | | | | | age undeterminedAbnormal | | | | | | ECG Confirmed by | | | | | | MARIANGEL SIDDIQI MD | | | | | | ([id number]) on 10/01/2018 | | | | | | 12:13:49 PM | | | | + + + + + + + + | Specimen | + + | | + + + + + | Narrative | Performed At | + + + | | | + + + + +---------+ + + | Performing | Address | City/State/Zipcode | Phone Number | | Organization | | | | + +---------+ + + | [facility] | | | | + +---------+ + + documented in this encounter Visit Diagnoses + + | Diagnosis | + + | Chest pain syndrome - Primary Chest pain, unspecified | + + | ASHD (arteriosclerotic heart disease) Coronary atherosclerosis of unspecified type of | | vessel, [place] or graft | + + | Mixed hyperlipidemia | + + documented in this encounter
--- OUTSIDE RECORDS SUMMARY | ~2019-09-08 | XMS | Encounter Summary ---
Demographics + + + | Address | [address] | | | [place] [address] | + + + | Home Phone | | + + + | Preferred Language | Unknown | + + + | Marital Status | | + + + | Mormon Affiliation | 1041 | + + + | Race | Unknown | + + + | Ethnic Group | Unknown | + + + Author + + + | Author | [facility] | | | and Ankitana | + + + | Organization | [facility] [...] Team Providers + +------+ + | Care Draw End Hand Name | Role | Phone | + +------+ + PCP | Unavailable | + +------+ + Encounter Details +--------+ + + + + | Date | Type | Department | Care Team | Description | +--------+ + + + + | 05/02/ | Hospital | [facility] | [facility] | | | 1997 | Encounter | [facility] | MD [address] | | | | | [place] [address] | [facility] | | | | | [facility] | [address] [place] [place] | | | | | [place] | [address] | | | | | [address] | | | | | | [phone] | | | +--------+ + + + [...] | | | | | | [place] [address] | | | | | | [phone] | | | | | | | | +--------+---------+ + + + documented as of this encounter Visit Diagnoses Not on filedocumented in this encounter"
--- OUTSIDE RECORDS SUMMARY | ~2019-09-08 | XMS | Encounter Summary ---
Demographics + + + | Address | [address] | | | [place] [address] | + + + | Home Phone | | + + + | Preferred Language | Unknown | + + + | Marital Status | | + + + | Restorationist Affiliation | 1041 | + + + | Race | Unknown | + + + | Ethnic Group | Unknown | + + + Author + + + | Author | [facility] | | | and Ankitana | + + + | Organization | [facility] | | | and Ankitana [...] Team Providers + +------+ + | Care Still Worker Helper Name | Role | Phone | + +------+ + | Yolanda Lee | PCP | | + +------+ + Reason for Visit + + + | Reason | Comments | + + + | Chest Pain | | + + + Encounter Details +--------+ + + + + | Date | Type | Department | Care Team | Description | +--------+ + + + + | 10/27/ | Emergency | [facility] | Seamus Cruz DO | Non-cardiac chest | | 2017 | | [facility] | [address] | pain (Primary Dx); | | | | EMERGENCY CENTER | [place] [address] | Shortness of breath | | | | [address] | [phone] | | | | | [place], [place] | | | | | | [address] | | | | | | [phone] | | | +--------+ + + + [...] + + + | Blood Pressure | 172/68 | 10/27/2016 4:15 PM | | | | | PST | | + + + + + | Pulse | 91 | 10/27/2016 4:15 PM | | | | | PST | | + + + + + | Temperature | 36 C (96.8 F) | 10/27/2016 12:09 PM | | | | | PST | | + + + + + | Respiratory Rate | 20 | 10/27/2016 4:15 PM | | | | | PST | | + + + + + | Oxygen Saturation | 98% | 10/27/2016 4:15 PM | | | | | PST | | + + + + + | Inhaled Oxygen | - | - | | | Concentration | | | | + + + + + | Weight | 68 kg (150 lb) | 10/27/2016 12:09 PM | | | | | PST | | + + + + + | Height | 172.7 cm (5' 8") | 10/27/2016 12:09 PM | | | | | PST | | + + + + + | Body Mass Index | 22.81 | 10/27/2016 12:09 PM | | | | | PST [...] + documented as of this encounter Discharge Instructions Instructions Seamus Cruz, - 10/27/2016Thank you for entrusting your care to the [facility] Department at [place]. We hope you get better soon. Based on thethe testing we performed today, we feel that it is very unlikely that your symp toms are related to a serious or life-threatening condition and that it is safe for you to go home. However, it is important that you follow up with your primary care doctor for a rec heck in a timely manner. If you develop any worsening, new findings, or concerns, please re turn immediately. AttachmentsThe following attachments cannot be sent through Care Everywhere.CHEST PAIN, NON CARDIAC (SERBIAN)SHORTNESS OF BREATH (DYSPNEA) (SERBIAN)documented in this encounter Medications at Time of [...] Take 1 tablet by | 30 | 11 | 08/27/20 | | | (LIPITOR) 40 mg | mouth nightly. | tablet | | 16 | 8 | | tablet | | [...] | | Take 1-2 tablets by | | 0 | | | | HYDROcodone-acetamin | mouth every 4 hours | | | | 7 | | ophen (NORCO) 5-325 | as [...] +---------+ + + | lisinopril | Take 20 mg by mouth | | 0 | | | | (PRINIVIL, ZESTRIL) | Daily. | | | | 8 | | 20 mg tablet | | [...] +---------+ + + | oxyCODONE | Take 1-2 tablets by | 45 | 0 | 08/27/20 | | | (ROXICODONE) 5 mg | mouth every 4 hours | tablet | | 16 | 7 | | tablet | as needed for Pain. | | | | | + + + +---------+ + + | QUEtiapine | Take 100 mg by mouth | | 0 | | | | (SEROQUEL) 100 mg | nightly. | | | | 9 | | tablet | | | | | | + + + +---------+ + + | traMADol (ULTRAM) | Take 2 tablets by | 45 | 0 | 08/27/20 | | | 50 mg tablet | mouth every 6 hours | tablet | | 16 | 7 | | | as needed for Pain. | | | | | + + + +---------+ + + documented as of this encounter Plan of Treatment +--------+---------+ + + + | Date | Type | Specialty | Care Team | Description | +--------+---------+ + + + | 10/28/ Office | Cardiology | Carol, | | | 2019 | Visit | | SALVATORE Moreno [address] | | | | | | [place], | | | | | | [place] [address] | | | | | | [phone] | | | | | | | | +--------+---------+ + + + + +------+--------+ + + | Name | Type | Priori | Associated Diagnoses | Date/Time | | | | ty | | | + +------+--------+ + + | ED INFORMATION | BEATRICE | Routin | | 10/27/2016 12:02 PM | | EXCHANGE | | e | | PST | + +------+--------+ + + | ECG 12 lead | ECG | STAT | | 10/27/2016 12:29 PM | | | | | | PST | + +------+--------+ + + documented as of this encounter Procedures + +--------+ + + + | Procedure Name | Priori | Date/Time | Associated Diagnosis | Comments | | | ty | | | | + +--------+ + + + | TROPONIN I | STAT | 10/27/2016 | | Results for this | | | | 3:12 PM | | procedure are in the | | | | PST | | results section. | + +--------+ + + + | CT ANGIOGRAM CHEST W | Routin | 10/27/2016 | | Results for this | | CONTRAST | e | 2:18 PM | | procedure are in the | | | | PST | | results section. | + +--------+ + + + | POC BLOOD GAS VENOUS | Routin | 10/27/2016 | | Results for this | | | e | 12:46 PM | | procedure are in the | | | | PST | | results section. | + +--------+ + + + | EXTRA HOLD TUBE(S) | STAT | 10/27/2016 | | Results for this | | | | 12:42 PM | | procedure are in the | | | | PST | | results section. | + +--------+ + + + | DRUGS OF ABUSE, | STAT | 10/27/2016 | | Results for this | | SCREEN, URINE | | 12:42 PM | | procedure are in the | | | | PST | | results section. | + +--------+ + + + | B TYPE NATRIURETIC | STAT | 10/27/2016 | | Results for this | | PEPTIDE | | 12:42 PM | | procedure are in the | | | | PST | | results section. | + +--------+ + + + | EXTRA HOLD TUBE(S) | Routin | 10/27/2016 | | Results for this | | | e | 12:37 PM | | procedure are in the | | | | PST | | results section. | + +--------+ + + + | D-DIMER | STAT | 10/27/2016 | | Results for this | | | | 12:35 PM | | procedure are in the | | | | PST | | results section. | + +--------+ + + + | ECG 12 LEAD | STAT | 10/27/2016 | | | | | | 12:29 PM | | | | | | PST | | | + +--------+ + + + | XR CHEST AP PORTABLE | STAT | 10/27/2016 | | Results for this | | | | 12:24 PM | | procedure are in the | | | | PST | | results section. | + +--------+ + + + | TROPONIN I | STAT | 10/27/2016 | | Results for this | | | | 12:15 PM | | procedure are in the | | | | PST | | results section. | + +--------+ + + + | CBC NO DIFFERENTIAL | STAT | 10/27/2016 | | Results for this | | | | 12:15 PM | | procedure are in the | | | | PST | | results section. | + +--------+ + + + | ALCOHOL | STAT | 10/27/2016 | | Results for this | | | | 12:15 PM | | procedure are in the | | | | PST | | results section. | + +--------+ + + + | COMPREHENSIVE | STAT | 10/27/2016 | | Results for this | | METABOLIC PANEL | | 12:15 PM | | procedure are in the | | | | PST | | results section. | + +--------+ + + + | ED INFORMATION | Routin | 10/27/2016 | | | | EXCHANGE | e | 12:02 PM | | | | | | PST | | | + +--------+ + + + documented in this encounter Results Troponin I (10/27/2016 3:12 PM PST) + +-------+ + + + | Component | Value | Ref Range | Performed | Pathologist | | | | | At | Signature | + +-------+ + + + | Troponin I | 0.02 | 0.00 - 0.06 | [facility] | | | | | ng/mL | [facility] | | | | | [...] + + | [facility] | [address] | [place] [address] | | | [facility] | | | | | LABORATORY | | | | + + + + + CT Angiogram Chest W Contrast (10/27/2016 2:18 PM PST) + + | Specimen | + + | | + + + + | Addenda | + + | Addendum by Edgar Miramontes MD on 11/05/2016 10:29 AM Addendum Begins | | Additional clinical information: Chest pain. This addendum does not alter the | | original interpretation of the study. Signed by: Edgar Miramontes Addendum | | Ends | + + + + + | Narrative | Performed At | + + + | CT ANGIOGRAM CHEST (PULMONARY) CLINICAL INFORMATION: Rule | [facility] | | out pulmonary embolism. COMPARISON: XR CHEST AP PORTABLE dated | | | 10/27/2016; XR CHEST AP PORTABLE dated 08/25/2016; CHEST PORTABLE ONE | | | VIEW dated 02/22/2015 PROCEDURE: Thin-section images of the entire | | | chest after the administration of 80ml [id number] contrast. | | | 3D MIP thin slab images and 2D multiplanar reconstructions performed. | | | At least one of the following CT dose optimization techniques | | | were used: Automated exposure control; Adjustment of mA and/or kV | | | according to patient size; Use of iterative reconstruction technique. | | | FINDINGS: PULMONARY ARTERIES: No pulmonary embolism. RIGHT | | | VENTRICLE TO LEFT VENTRICLE RATIO:Not applicable. (Maximum short axis | | | diameter on axial image. Applicable only when pulmonary embolism | | | present. Abnormal greater than or equal to 0.9.) CHEST Lungs, | | | Pleura and Airways: Subtle centrilobular emphysema. Mediastinum: No | | | significant pericardial, great vessel or esophageal abnormality. No | | | mediastinal mass. . Atherosclerotic disease. Lymph Nodes: No | | | adenopathy. Upper Abdomen: No significant abnormality in the | | | visualized upper abdomen. BODY WALL Soft Tissues: No hernia, | | | mass or hemorrhage. Bones: No acute fracture or vertebral end plate | | | destruction. No lytic or blastic lesion. Spondylosis only. | | | IMPRESSION: Negative CT pulmonary angiogram. Signed by: | | | Edgar Miramontes | | + + + + + | Procedure Note | + + | Tim, Rad Results In - 10/27/2016 2:29 PM PST | | | | CT ANGIOGRAM CHEST (PULMONARY) | | | | CLINICAL INFORMATION: | | Rule out pulmonary embolism. | | | | COMPARISON: | | XR CHEST AP PORTABLE dated 10/27/2016; XR CHEST AP PORTABLE dated | | 08/25/2016; CHEST PORTABLE ONE VIEW dated 02/22/2015 | | | | PROCEDURE: | | Thin-section images of the entire chest after the administration of | | 80ml [id number] contrast. 3D MIP thin slab images and 2D | | multiplanar reconstructions performed. | | | | At least one of the following CT dose optimization techniques were | | used: Automated exposure control; Adjustment of mA and/or kV | | according to patient size; Use of iterative reconstruction technique. | | | | FINDINGS: | | PULMONARY ARTERIES: No pulmonary embolism. | | | | RIGHT VENTRICLE TO LEFT VENTRICLE RATIO:Not applicable. (Maximum | | short axis diameter on axial image. Applicable only when pulmonary | | embolism present. Abnormal greater than or equal to 0.9.) | | | | CHEST | | Lungs, Pleura and Airways: Subtle centrilobular emphysema. | | Mediastinum: No significant pericardial, great vessel or esophageal | | abnormality. No mediastinal mass. . Atherosclerotic disease. | | Lymph Nodes: No adenopathy. | | Upper Abdomen: No significant abnormality in the visualized upper | | abdomen. | | | | BODY WALL | | Soft Tissues: No hernia, mass or hemorrhage. | | Bones: No acute fracture or vertebral end plate destruction. No lytic | | or blastic lesion. Spondylosis only. | | | | IMPRESSION: | | Negative CT pulmonary angiogram. | | | | | | | | Signed by: Edgar Miramontes | + + + +---------+ + + | Performing | Address | City/State/Zipcode | Phone Number | | Organization | | | | + +---------+ + + | [facility] | | | | + +---------+ + + Blood gas, Venous (10/27/2016 12:46 PM PST) + + + + + + | Component | Value | Ref Range | Performed | Pathologist | | | | | At | Signature | + + + + + + | pH, Venous | 7.43 (H) | 7.31 - 7.41 | [facility] | | | | | [facility] | | [facility] | | [facility] | | | | | | [facility] | | | | | | [facility]ENTER | | | | | | LABORATORY | | + + + + + + | pCO2, | 34.5 (L) | 41 - 51 mm Hg | [facility] | | | Venous | | | [facility] | | | | | | [facility] | | | | | | MEDICAL | | | | | | CENTER | | | | | | LABORATORY | | + + + + + + | pO2, Venous | 23 (L) | 37 - 43 mm Hg | [facility] | | | | [facility] | | | | | [facility] | | | | | | [facility] | | | | | | CENTER | | | | | | LABORATORY | | + + + + + + | TCO2, | 24 | 24 - 29 mmol/L | [facility] | | | Venous, POC | | | [facility] | | | | | | HE[facility] | | | | | | MEDICAL | | | | | | CENTER | | | | | | LABORATORY | | + + + + + + | HCO3, | 22.9 | 22 - 26 mmol/L | [facility] | | | Venous | | | [facility] | | | | | | [facility] | | | | | | MEDICAL | | | | | | CENTER | | | | | | LABORATORY | | + + + + + + | Base | 1 | 0 - 2 mmol/L | [facility] | | | deficit | | | [facility] | | | | | | HEART | | | | | | MEDICAL | | | | | | CENTER | | | | | | LABORATORY | | + + + + + + | O2 | 41 (L) | 70 - 76 % | [facility] | | | Saturation, | | | [facility] | | | Venous | | | HEART | | | [...] + + | [facility] | [address] | [place] [address] | | | [facility] | | | | | LABORATORY | | | | + + + + + Extra Hold Tube(s) (10/27/2016 12:42 PM PST) + +-------+ + + + | Component | Value | Ref Range | Performed | Pathologist | | | | | At | Signature | + +-------+ + + + | Extra Tube | SST | | [facility] | | | | [...] [facility] | [address] | [place] [address] | | | [facility] | | | | | LABORATORY | | | | + + + + + B Type Natriuretic Peptide (10/27/2016 12:42 PM PST) + +---------+ + + + | Component | Value | Ref Range | Performed | Pathologist | | | | | At | Signature | + +---------+ + + + | BNP | 168 (H) | <100 pg/mL | [facility] | | | | | [...] + + | [facility] | [address] | [place] [address] | | | [facility] | | | | | LABORATORY | | | | + + + + + Drugs of Abuse, Screen, Urine (10/27/2016 12:42 PM PST) + + + + + + [...] + + + + | Cannabinoid | NegativeComment: This | Negative | [facility] | | | s Screen, | entire battery is for | | [facility] | | | Urine | screening purposes only. | | HEART [...] + + | [facility] | [address] | [place] [address] | | | [facility] | | | | | LABORATORY | | | | + + + + + Extra Hold Tube(s) (10/27/2016 12:37 PM PST) + +-------+ + + + | Component | Value | Ref Range | Performed | Pathologist | | | | | At | Signature | + +-------+ + + + | Extra Tube | RED | | [facility] | | | | [...] + + | [facility] | [address] | [place] [address] | | | [facility] | | | | | LABORATORY | | | | + + + + + D-Dimer (10/27/2016 12:35 PM PST) + + + + + + | Component | Value | Ref Range | Performed | Pathologist | | | | | At | Signature | + + + + + + | D-Dimer | 1.18 (H)Comment: This | <0.50 ug/mL FEU | [facility] | | | Quantitativ | quantitative D Dimer | | [facility] | | | e | assay has been evaluated | | HEART | | | | for screening for | | MEDICAL | | | | venous thrombotic | | CENTER | | | | disease, and may be | | LABORATORY | | | | useful in ruling out, | | | | | | but not [...] + + | [facility] | [address] | [place] [address] | | | [facility] | | | | | LABORATORY | | | | + + + + + XR Chest AP Portable (10/27/2016 12:24 PM PST) + + | Specimen | + + | | + + + + + | Narrative | Performed At | + + + | CHEST PORTABLE ONE VIEW CLINICAL INFORMATION: Chest pain. | [facility] | | COMPARISON: XR CHEST AP PORTABLE dated 08/25/2016; CHEST | | | PORTABLE ONE VIEW dated 02/22/2015; XR CHEST PA AND LATERAL dated | | | 12/26/2014 FINDINGS: Heart, lungs and vessels normal. No | | | pneumothorax, pleural effusion or adenopathy. No significant bone | | | abnormality. IMPRESSION: Negative chest. Signed by: | | | Prabha Squires | | + + + + + | Procedure Note | + + | Tim, Rad Results In - 10/27/2016 12:47 PM PST | | | | CHEST PORTABLE ONE VIEW | | | | CLINICAL INFORMATION: | | Chest pain. | | | | COMPARISON: | | XR CHEST AP PORTABLE dated 08/25/2016; CHEST PORTABLE ONE VIEW dated | | 02/22/2015; XR CHEST PA AND LATERAL dated 12/26/2014 | | | | FINDINGS: | | Heart, lungs and vessels normal. No pneumothorax, pleural effusion or | | adenopathy. No significant bone abnormality. | | | | IMPRESSION: | | Negative chest. | | | | | | | | Signed by: Prabha Squires | + + + +---------+ + + | Performing | Address | City/State/Zipcode | Phone Number | | Organization | | | | + +---------+ + + | [facility] | | | | + +---------+ + + Ethanol (10/27/2016 12:15 PM PST) + + + + + + | Component | Value | Ref Range | Performed | Pathologist | | | | | At | Signature | + + + + + + | Ethanol Lvl | None Detected (<10 | None Detected | [facility] | | | | mg/dL) | (<10 mg/dL) | [facility] | | | | | mg/dL | HEART | | | | | | MEDICAL | | | | | | CENTER | | | | | | LABORATORY | | + + + + + + | ALCOHOL, | None Detected (<0.010 | None Detected | [facility] | | | SERUM/PLASM | g/dL) | (<0.010 g/dL) | [facility] | | | A | | g/dL | HEART | | | | | [...] + + | [facility] | [address] | [place] [address] | | | [facility] | | | | | LABORATORY | | | | + + + + + Troponin I (10/27/2016 12:15 PM PST) + +-------+ + + + | Component | Value | Ref Range | Performed | Pathologist | | | | | At | Signature | + +-------+ + + + | Troponin I | 0.05 | 0.00 - 0.06 | [facility] | | | | | ng/mL | [facility] | | | | | [...] + + | [facility] | [address] | [place] [address] | | | [facility] | | | | | LABORATORY | | | | + + + + + Comprehensive Metabolic Panel (10/27/2016 12:15 PM PST) + + + + + + [...] + + + + | K | 3.4 (L) | 3.5 - 5.0 | [facility] | | | | | mmol/L | [facility] | | | | | | HE[facility] | | | | | | MEDICAL | | | | | | CENTER | | | | | | LABORATORY | | + + + + + + | Cl | 102 | 99 - 109 mmol/L | [facility] [...] + + + + | Glucose | 147 (H)Comment: Tunisian | 65 - 99 mg/dL | [facility] [...] + + + + | Creatinine | 0.61Comment: IDMS | 0.50 - 1.00 | [facility] | | | | traceable creatinine | mg/dL | [facility] | | | | | | HEART | | | | | | MEDICAL | | | | | | CENTER | | | | | | LABORATORY | | + + + + + + | Calcium | 10.0 | 8.5 - 10.2 | [facility] | | | | | mg/dL | [facility] | | | | | | HE[facility] | | | | | | MEDICAL | | | | | | CENTER | | | | | | LABORATORY | | + + + + + + | Total | 8.8 (H) | 6.1 - 7.8 g/dL | [facility] | | | Protein | | | [facility] | | | | | | HEART | | | | | | MEDICAL | | | | | | CENTER | | | | | | LABORATORY | | + + + + + + | Albumin | 4.3 | 3.3 - 4.8 g/dL | [facility] | | | | | | [facility] | | | | | | [facility] | | | | | | MEDICAL | | | | | | CENTER | | | | | | LABORATORY | | + + + + + + | Bilirubin | 0.5 | 0.2 - 1.1 mg/dL | [facility] | | | Total | | | [facility] | | | | | | HE[facility] | | | | | | MEDICAL | | | | | | CENTER | | | | | | LABORATORY | | + + + + + + | Alkaline | 182 (H) | 35 - 115 U/L | [facility] | | | Phosphatase | | | [facility] | | | | | | HEART | | | | | | MEDICAL | | | | | | CENTER | | | | | | LABORATORY | | + + + + + + | AST | 25 | 10 - 45 U/L | [facility] | | | | | | [facility] | | | | | | HE[facility] | | | | | | MEDICAL | | | | | | CENTER | | | | | | LABORATORY | | + + + + + + | ALT | 18 | 10 - 65 U/L | [facility] | | | | | | [facility] | | | | | | HE[facility] | | | | | | MEDICAL | | | | | | CENTER | | | | | | LABORATORY | | + + + + + + | Anion Gap | 16 | 5 - 16 mmol/L | [facility] [...] | [address] | [place] [address] | | | [facility] | | | | | LABORATORY | | | | + + + + + CBC no Differential (10/27/2016 12:15 PM PST) + + + + + + | Component | Value | Ref Range | Performed | Pathologist | | | | | At | Signature | + + + + + + | WBC | 8.8 | 3.8 - 11.0 K/uL | [facility] | | | | | | [facility] | | | | | | [facility] | | | | | | MEDICAL | | | | | | CENTER | | | | | | LABORATORY | | + + + + + + | RBC | 5.43 (H) | 3.70 - 5.10 | [facility] | | | | | M/uL | [facility] | | | | | | HE[facility] | | | | | | MEDICAL | | | | | | CENTER | | | | | | LABORATORY | | + + + + + + | Hemoglobin | 15.0 | 11.3 - 15.5 | [facility] | | | | | g/dL | [facility] | | | | | | HE[facility] | | | | | | MEDICAL | | | | | | CENTER | | | | | | LABORATORY | | + + + + + + | Hematocrit | 46.8 (H) | 34.0 - 46.0 % | [facility] | | | | | | [facility] | | | | | | [facility] | | | | | | MEDICAL | | | | | | CENTER | | | | | | LABORATORY | | + + + + + + | MCV | 86.3 | 80.0 - 100.0 fL | [facility] [...] + + + + | MCHC | 32.1 | 32.0 - 35.5 | [facility] | | | | | g/dL | [facility] | | | | | | HEART | | | | | | MEDICAL | | | | | | CENTER | | | | | | LABORATORY | | + + + + + + | RDW-CV | 15.4 | 11.0 - 15.5 % | [facility] | | | | | | [facility] | | | | | | [facility] | | | | | | MEDICAL | | | | | | CENTER | | | | | | LABORATORY | | + + + + + + | Platelet | 278 | 150 - 400 K/uL | [facility] [...] + + | [facility] | [address] | [place] [address] | | | [facility] | | | | | LABORATORY | | | | + + + + + documented in this encounter Visit Diagnoses + + | Diagnosis | + + | Non-cardiac chest pain - Primary Other chest pain | + + | Shortness of breath | + + documented in this encounter Administered Medications + +--------+ +-------+------+------+ | Medication Order | MAR | Action | Dose | Rate | Site | | | Action | Date | | | | + +--------+ +-------+------+------+ | albuterol-ipratropium (DUONEB) | Given | 10/27/19 | 3 mLs | | | | 2.5-0.5 mg/3 mL nebulizer | | 17 1:24 | | | | | solution 3 mL 3 mL, | | PM PST | | | | | Nebulization, ONCE, 10/27/16 | | | | | | | at 1225, For 1 dose | | | | | | + +--------+ +-------+------+------+ +---+---+ | | | +---+---+ + +-------+ +-------+---+---+ | diphenhydrAMINE (BENADRYL) | Given | 10/27/19 | 25 mg | | | | injection 25 mg 25 mg, | | 17 12:55 | | | | | Intravenous, ONCE, 10/27/16 at | | PM PST | | | | | 1225, For 1 dose | | | | | | + +-------+ +-------+---+---+ +---+---+ | | | +---+---+ + +-------+ +--------+---+---+ | iohexol (OMNIPAQUE 350) 350 | Given | 10/27/19 | 80 mLs | | | | mg/mL injection 80 mL 80 mL, | | 17 2:18 | | | | | Intravenous, ONCE PRN, Other, | | PM PST | | | | | Starting 10/27/16 at 1418, For | | | | | | | 1 dose, Cat Scanner | | | | | | + +-------+ +--------+---+---+ +---+---+ | | | +---+---+ + +---------+ +--------+-------+---+ | sodium chloride 0.9% (NS) bolus | New Bag | 10/27/19 | 1,000 | 500 | | | 1,000 mL 1,000 mL, Intravenous, | | 17 1:33 | mLs | mL/hr | | | Administer over 2 Hours, ONCE, | | PM PST | | | | | 10/27/16 at 1330, For 1 dose, | | | | | | | IV FLUID BOLUS, | | | | | | + +---------+ +--------+-------+---+ +---+---+ | | | +---+---+ + +---------+ +--------+-------+---+ | sodium chloride 0.9% (NS) bolus | New Bag | 10/27/19 | 50 mLs | 3000 | | | 50 mL 50 mL, Intravenous, | | 17 2:18 | | mL/hr | | | Administer over 1 Minutes, ONCE | | PM PST | | | | | PRN, for contrast study, Starting | | | | | | | 10/27/16 at 1411, For 1 dose, | | | | | | | May infuse at a different rate | | | | | | | per protocol., Cat Scanner | | | | | | + +---------+ +--------+-------+---+ +---+---+ | | | +---+---+ documented in [...]
--- OUTSIDE RECORDS SUMMARY | ~2019-09-08 | XMS | Encounter Summary ---
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
--- OUTSIDE RECORDS SUMMARY | ~2019-09-08 | XMS | Encounter Summary ---
Demographics + + + | Address | [address] | | | [place] [address] | + + + | Home Phone | | + + + | Preferred Language | Unknown | + + + | Marital Status | | + + + | Yazdanism Affiliation | 1041 | + + + | Race | Unknown | + + + | Ethnic Group | Unknown | + + + Author + + + | Author | [facility] | | | and Ankitana | + + + | Organization | [facility] | | | and [...] Team Providers + +------+ + | Care Correctional Treatment Specialist Name | Role | Phone | + +------+ + PCP | Unavailable | + +------+ + Encounter Details +--------+ + + + + | Date | Type | Department | Care Team | Description | +--------+ + + + + | 12/27/ | Hospital | [facility] | Trino Leon, | | | 2005 | Encounter | FAMILY EMERGENCY | [address] | | | | [place] [address] | [facility] | | | | | [facility] | [place] [address] | | | | | [place] | [phone] | | | | | [address] | | | | | | [phone] | | | +--------+ + + + [...] [place], | | | | | | [place] [address] | | | | | | [phone] | | | | | | | | +--------+---------+ + + + documented as of this encounter Visit Diagnoses Not on filedocumented in this encounter"
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
--- OUTSIDE RECORDS SUMMARY | ~2019-09-08 | XMS | Encounter Summary ---
Demographics + + + | Address | [address] | | | [place] [address] | + + + | Home Phone | | + + + | Preferred Language | Unknown | + + + | Marital Status | | + + + | Latter-Day Affiliation | 1041 | + + + | Race | Unknown | + + + | Ethnic Group | Unknown | + + + Author + + + | Author | [facility] | | | and Ankitana | + + + | Organization | [facility] | [...] Team Providers + +------+ + | Care Rod Welder Name | Role | Phone | + [...] | | | | | [place] | [address] | | | | | [place] | | | | | | [address] | | | | | | [phone] | | | +--------+ + + + [...] | | | | | | [place] [address] | | | | | | [phone] | | | | | | | | +--------+---------+ + + + documented as of this encounter Visit Diagnoses Not on filedocumented in this encounter"
--- OUTSIDE RECORDS SUMMARY | ~2019-09-08 | XMS | Encounter Summary ---
Demographics + + + | Address | [address] | | | [place] [address] | + + + | Home Phone | | + + + | Preferred Language | Unknown | + + + | Marital Status | | + + + | Restoration Affiliation | 1041 | + + + | Race | Unknown | + + + | Ethnic Group | Unknown | + + + Author + + + | Author | [facility] | | | and Ankitana | + + + | Organization | [facility] | | | and [...] Team Providers + +------+ + | Care Knitting Machine Fixer Head Name | Role | Phone | + +------+ + PCP | Unavailable | + +------+ + Encounter Details +--------+ + + + + | Date | Type | Department | Care Team | Description | +--------+ + + + + | 06/06/ | Hospital | [facility] | Elton Quiñones MD | | | 2012 | Encounter | FAMILY EMERGENCY | [address] | | | | | CENTER [address] | [place], [place] | | | | | [place] | [address] | | | | | [place] | | | | | | [address] | | | | | | [phone] | | | +--------+ + + + [...] W | | | | | | [place], | | | | | | [place] [address] | | | | | | [phone] | | | | | | | | +--------+---------+ + + + documented as of this encounter Visit Diagnoses Not on filedocumented in this encounter"
--- OUTSIDE RECORDS SUMMARY | ~2019-09-08 | XMS | Encounter Summary ---
Demographics + + + | Address | [address] | | | [place] [address] | + + + | Home Phone | | + + + | Preferred Language | Unknown | + + + | Marital Status | | + + + | Scientology Affiliation | 1041 | + + + | Race | Unknown | + + + | Ethnic Group | Unknown | + + + Author + + + | Author | [facility] | | | and Ankitana | + + + | Organization | [facility] | | | and Ankitana | [...] Team Providers + +------+ + | Care Social Security Specialist Name | Role | Phone | + +------+ + | [place] [facility] | PCP | | + +------+ [...] | | FAMILY EMERGENCY | [address] [place] | (Primary Dx) | | | | CENTER [address] | [address] [place], [place] | | | | | [place] | [address] | | | | | [place], [place] | | | | | | [address] | | | | | | [phone] | | | +--------+ + + + [...] be sent through Care Everywhere.HIP CONTUSION ( KAZAKH)documented in this encounter Medications at Time of [...] | | | | | | [place], | | | | | | [place] [address] | | | | | | [phone] | | | | | | | [...] OF THE LEFT HIP, 09/27/2013 CLINICAL | [facility] | | INFORMATION: Worsening left hip pain [...] + + | [facility] | [facility], [address] | [place] [address] | [phone] | | | Lucio | | | + + + + + XR Pelvis 1 or 2 Vw (09/27/2013 7:51 PM PST) + + | Specimen | + + | | + + + + + | Narrative | Performed At | + + + | AP PELVIS AND TWO VIEWS OF THE LEFT HIP, 09/27/2013 CLINICAL | [facility] | | INFORMATION: Worsening left hip [...] + + | [facility] | [facility], [address] | [place] [address] | [phone] | | | Lucio | | | [...] | | 13 7:47 | | | uteal-Le | | ONCE, 09/27/13 at 2000, For 1 | | PM PST | | | ft | | dose | | | | | | + +--------+ +-------+------+ + +---+---+ | | | +---+---+ documented in this encounter
--- OUTSIDE RECORDS SUMMARY | ~2019-09-08 | XMS | Encounter Summary ---
Demographics + + + | Address | [address] | | | [place] [address] | + + + | Home Phone | | + + + | Preferred Language | Unknown | + + + | Marital Status | | + + + | Gnosticist Affiliation | 1041 | + + + | Race | Unknown | + + + | Ethnic Group | Unknown | + + + Author + + + | Author | [facility] | | | and Ankitana | + + + | Organization | [facility] | | | and Ankitana [...] Team Providers + +------+ + | Care Wood Model Builder Name | Role | Phone | + +------+ + | Yolanda Lee | PCP | | + +------+ + Encounter Details +--------+ + + + + | Date | Type | Department | Care Team | Description | +--------+ + + + + | 02/26/ | Hospital | [facility] | Jesse Siddiqi MD | Cellulitis and | | 2015 | Encounter | [facility] | [address], | abscess of hand, | | | | ORTH[address]EDICS [address] | [address] floor [place], | except fingers and | | | [address] [place], [place] | [place] [address] | thumb; Bacteremia | | | | [address] | [phone] | due to Streptococcus | | | | [phone] | | / Sepsis | +--------+ + [...] + + + | Blood Pressure | 150/78 | 02/26/2015 4:49 PM | | | | | PDT | | + + + + + | Pulse | 69 | 02/26/2015 4:49 PM | | | | | PDT | | + + + + + | Temperature | 36.7 C (98 F) | 02/26/2015 4:49 PM | | | | | PDT | | + + + + + | Respiratory Rate | 16 | 02/26/2015 4:49 PM | | | | | PDT | | + + + + + | Oxygen Saturation | 100% | 02/26/2015 4:49 PM | | | | | PDT [...] | | | | | | [place] [address] | | | | | | [phone] | | | | | | | [...] 2 g in | New Bag | 02/27/20 | 2 g | 100 | | | sodium chloride 0.9% 50 mL IVPB | | 15 5:00 | | mL/hr | | | 2 g, Intravenous, Administer over | | PM PDT | | | | | 30 Minutes, EVERY 24 HOURS | | | | | | | (Daily), First dose on Sun | | | | | | | 02/26/15 at 1700, For 14 days, | | | | [...]
--- OUTSIDE RECORDS SUMMARY | ~2019-09-08 | XMS | Encounter Summary ---
Demographics + + + | Address | [address] | | | [place] [address] | + + + | Home Phone | | + + + | Preferred Language | Unknown | + + + | Marital Status | | + + + | Shinto Affiliation | 1041 | + + + | Race | Unknown | + + + | Ethnic Group | Unknown | + + + Author + + + | Author | [facility] | | | and Ankitana | + + + | Organization | [facility] | | [...] Team Providers + +------+ + | Care Quartz Cutter Name | Role | Phone | + +------+ + | Yolanda Lee | PCP | | + +------+ + Encounter Details +--------+ + + + + | Date | Type | Department | Care Team | Description | +--------+ + + + + | 03/04/ | Hospital | [facility] | Jesse Siddiqi MD | Cellulitis and | | 2015 | Encounter | [facility] | [address], | abscess of hand, | | | | CARDIAC MEDICAL [address] | [address] floor [place], | except fingers and | | | | [address] [place], | [place] [address] | thumb; Bacteremia | | | | [place] [address] | [phone] | due to Streptococcus | | | | [phone] | | / Sepsis | +--------+ + [...] + + + | Blood Pressure | 124/75 | 03/04/2015 7:12 PM | | | | | PDT | | + + + + + | Pulse | 73 | 03/04/2015 7:12 PM | | | | | PDT | | + + + + + | Temperature | 36.9 C (98.4 F) | 03/04/2015 7:12 PM | | | | | PDT | | + + + + + | Respiratory Rate | 16 | 03/04/2015 7:12 PM | | | | | PDT | | + + + + + | Oxygen Saturation | - | - | | + + + + + | Inhaled Oxygen | - | - | | | Concentration | | | | + + + + + | Weight | 66.2 kg (145 lb 15.1 | 03/04/2015 7:12 PM | | | | oz) | PDT | | + + + + + | Height | 172.7 cm (5' 8") | 03/04/2015 7:12 PM | | | | | PDT | | + + + + + | Body Mass Index | 22.19 | 03/04/2015 7:12 PM | | | | | PDT [...] documented as of this encounter Discharge Instructions Patient Instructions Lenore Luna RN - 03/04/2015 8:01 PM PDTInstructed pt on IV care a nd well to seek medical care. Pt verbalized understanding and refused AVS. Pt A&O, VSS.Abril ctronically signed by Lenore Luna RN at 03/04/2015 8:02 PM PDT documented in this encounter Medications at Time [...] encounter Progress Notes Naya Oliveira RN - 03/04/2015 8:01 PM PDTRocephin infused over 30 minutes. Pt refus ed for AVS Dc instruction paper. Electronically signed by Naya Oliveira RN at 015 8:04 PM PDTdocumented in this encounter Plan of Treatment +--------+---------+ + + + | Date | Type | Specialty | Care Team | Description | +--------+---------+ + + + | 10/28/ | Office | Cardiology | Carol, | | | 2019 | Visit | | [place] [address] | | | | | | [place], | | | | | | [place] [address] | | | | | | [phone] | | | | | | | [...] 2 g in | New Bag | 03/04/20 | 2 g | 100 | | | sodium chloride 0.9% 50 mL IVPB | | 15 7:24 | | mL/hr | | | 2 g, Intravenous, Administer over | | PM PDT | | | | | 30 Minutes, EVERY 24 HOURS | | | | | | | (Daily), First dose on Sat | | | | | | | 03/04/15 at 1930, For 14 days, | | | | [...]
--- OUTSIDE RECORDS SUMMARY | ~2019-09-08 | XMS | Encounter Summary ---
Demographics + + + | Address | [address] | | | [place] [address] | + + + | Home Phone [...] Author | [facility] | | | and Ankitana | + + + | Organization | [facility] | | | and Ankitana [...] Team Providers + +------+ + | Care Lobsterman Name | Role | Phone | + +------+ + PCP | Unavailable | + +------+ + Encounter Details +--------+ + + + + | Date | Type | Department | Care Team | Description | +--------+ + + + + | 09/16/ | Hospital | [facility] | Kenneth Fields MD | | | 2008 | Encounter | FAMILY EMERGENCY | [address] | | | | | CENTER [address] | [place] | | | | | [place] | [address] | | | | | [place] | | | | | | [address] | | | | | | [phone] | | | +--------+ + + + [...] | | | | | | [place] [address] | | | | | | [phone] | | | | | | | | +--------+---------+ + + + documented as of this encounter Visit Diagnoses Not on filedocumented in this encounter"
--- OUTSIDE RECORDS SUMMARY | ~2019-09-08 | XMS | Encounter Summary ---
Demographics + + + | Address | [address] | | | [place] [address] | + + + | Home Phone | | + + + | Preferred Language | Unknown | + + + | Marital Status | | + + + | Latter Day Affiliation | 1041 | + + + | Race | Unknown | + + + | Ethnic Group | Unknown | + + + Author + + + | Author | [facility] | | | and Ankitana | + + + | Organization | [facility] | | | and Ankitana | [...] Team Providers + +------+ + | Care Flatwork Finisher Hand Name | Role | Phone | [...] MD [place] | | | | | [place] [address] | [address] | | | 08/20/ | | [address] | [address] [place] | | | 2006 | | [place] | [id number] | | | | | [address] | | | | | | [phone] | | | +--------+ + + + [...] | | | | | | [place] [id number] | | | | | | [phone] | | | | | | | | +--------+---------+ + + + documented as of this encounter Visit Diagnoses Not on filedocumented in this encounter"
--- OUTSIDE RECORDS SUMMARY | ~2019-09-08 | XMS | Encounter Summary ---
Demographics + + + | Address | [address] | | | [place] [address] | + + + | Home Phone | | + + + | Preferred Language | Unknown | + + + | Marital Status | | + + + | Anglican Affiliation | 1041 | + + + | Race | Unknown | + + + | Ethnic Group | Unknown | + + + Author + + + | Author | [facility] | | | and Ankitana | + + + | Organization | [facility] | | | and Ankitana [...] Providers + +------+ + | Care Rail Specialist Name | Role | Phone | + +------+ + PCP | Unavailable | + +------+ + Encounter Details +--------+ + + + + | Date | Type | Department | Care Team | Description | +--------+ + + + + | 03/24/ | Hospital | [facility] | ED, PHYSICIAN | | | 2012 - | Encounter | [facility] | Estephanie Roy, | | | | | MEDICAL [address] | MD [address] | | | 03/26/ | | [place], [place] | [place], [place] | | | 2012 | | [address] | [address] | | | | | [phone] | | | | | | | RuthElizabeth, | | | | | | MD [address] | | | | | | [place] | | | | | | [place] [address] | | | | | | [phone] | | | | | | | [...] documented as of this encounter Discharge Summaries Jesse Siddiqi MD - 03/26/2013 12:28 PM PDT PATIENT NAME: ANNE MARIE PICHARDO Sex/Age: F / 57Y : 1955 ADMISSION DATE: 03/24/2013 DISCHARGE DATE: 03/26/2013 [id number] / [id number] DISCHARGE DIAGNOSES: 1. Abdominal pain. 2. Nausea and vomiting, resolved. 3. Hypertension, controlled. 4. Coronary artery disease, stable. 5. History of drug abuse and chronic abdominal pain. HOSPITAL COURSE: Ms. Pichardo is a 57-year-old female who presented with sev ere abdominal pain. X-rays in the emergency room were negative, and her laboratory studies were all within normal limits. She does have a chronic history of abdominal pain and has visited our emergency room at least 5 or 6 times over the last few months with similar symp toms. She had a CT of her abdomen just 3 weeks ago which was also within normal limits. S he was placed on oral and IV narcotics as needed for the pain and used these quite frequent ly. She was placed on IV antiemetics and started on acid suppression with Protonix twice d aily. Her nausea and vomiting had resolved although she is continuing to have abdominal pa in. This is very nonfocal and associated with quite a bit of anxiety. No other objective reasons have been found for her abdominal pain. She was advised that, from a medical eugene dpoint, it appears safe for her to go home, and I will give her prescriptions for Protonix and Phenergan. We will give her a very small prescription for hydrocodone, and she will fo llow up with her primary care physician at the end of the week as scheduled. DISCHARGE PLAN: 1. Diet; heart healthy. 2. Activities; as tolerated. DISCHARGE MEDICATIONS: 1. Protonix 40 mg p.o. b.i.d. 2. Phenergan 25 mg 1/2 to 1 tablet p.o. every 4 hours p.r.n. nausea. 3. Percocet 5/325 m g 1 tablet p.o. every 4 hours p.r.n., #15 with no refills. 4. Aspirin 81 mg p.o. daily. 5. Coreg 6.25 mg p.o. b.i.d. 6. Lisinopril 10 mg p.o. daily. 7. Prozac 20 mg p.o. daily. 8. Plavix 75 mg p.o. daily. 9. Seroquel 100 mg p.o. at bedtime. 10. Vistaril 25 mg p.o. at bedtime p.r.n. 11. Lipitor 40 mg p.o. at bedtime. ANNE MARIE PICHARDO ADM:03/24/13 [id number] 03/26/13 DIS Jack DISCHARGE SUMMARY [id number] [facility] Jesse Siddiqi MD,PhD [facility] THIS REPORT IS CONFIDENTIAL AND NOT TO BE RELEASED WITHOUT PROPER AUTHORIZATION. [facility] FOLLOWUP: Continue primary care through the [facility]. Office visit is schedu led for 04/02/2013 at 2 p.m. Discharge time was 38 minutes. Jesse Siddiqi MD,PhD P P TDC/sxs #[id number] cc: Jesse Siddiqi MD,PhD Electronically Signed 05/19/13 1556 Jesse Siddiqi MD,PhD ANNE MARIE PICHARDO ADM:03/24/13 [id number] 03/26/13 DIS Jack DISCHARGE SUMMARY [id number] [facility] Jesse Siddiqi MD,PhD [facility] THIS REPORT IS CONFIDENTIAL AND NOT TO BE RELEASED WITHOUT PROPER AUTHORIZATION.Electronica lly signed by Jesse Siddiqi MD at 05/19/2013 4:02 PM PDTdocumented in this encounter Progress Notes Jesse Siddiqi MD - 03/25/2013 2:59 PM PDT Hospitalist Progress Note Patient Information: Initial Evaluation: Initiated: 03/25/13 at 1500 Service date, if different from initiated date: Patient: NANE MARIE PICHARDO, a 57yo F admitted on 03/24/13. ADOD: 03/26/13 Ate soft lunch, then some nausea. Lots of abd pain. Continues to request narcotics. Hospitalist Physical Exam Current VS, I O's: VS with 24hr T-Max Date Temp Pulse Resp B/P Pulse Ox FiO2 03/24-03/25 97.2-98.8 66-77 16-20 128-170/67-85 94-99 Date Time Temp Pulse Resp B/P Pulse O2 O2 Flow FiO2 Ox Delivery Rate 03/25 0800 96 03/25 0751 98.2 66 20 140/67 96 Room Air RA 24hr totals 03/25 0700 Intake Total 488.00 Output Total 850.00 Balance -362.00 General Appearance: distress (anxious, pain) HEENT: head inspection normal, PERRL, multiple missing teeth Respiratory: lungs clear Cardiovascular: regular rate/rhythm Abdominal: normal bowel sounds, soft, tenderness (mid-abd) Musculoskeletal: no edema Neurologic/Psychiatric: alert Hospitalist A/P VTE prophylaxis: subcutaneous heparin Assessment/Plan: 57 yo F with long hx drug use and abd pain: * Abdominal Pain + N/V- neg CT abd 3 wks ago and neg XRays last night. Labs OK. Added Prot gretel for prob gastritis. Will cont IVF and pain meds. One hospitalization from 2007 noted a bd pain assoc with opiate withdrawal while in [facility]. * HTN- controlled. * CAD- stable * Disposition- plan for home tomorrow CC: //ivnm// Electronically Signed By: Jesse Siddiqi MD,PhD 03/25/13 1516 ANNE MARIE PICHARDO ADM:03/24/13 [id number] ADM Jack PROGRESS NOTE [id number] P [facility] Jesse Siddiqi MD,PhD E-Sign: [facility] THIS REPORT IS CONFIDENTIAL AND NOT TO BE RELEASED WITHOUT PROPER AUTHORIZATION. documented in this encounter Plan of Treatment +--------+---------+ + + + | Date | Type | Specialty | Care Team | Description | +--------+---------+ + + + | 10/28/ | Office | Cardiology | Carol, | | | 2020 | Visit | | SALVATORE Moreno [address] | | | | | [place], | | | | | | [place] [address] | | | | | | [phone] | | | | | | | | +--------+---------+ + + + documented as of this encounter Procedures + +--------+ + + + | Procedure Name | Priori | Date/Time | Associated Diagnosis | Comments | | | ty | | | | + +--------+ + + + | DRUGS OF ABUSE, 10 | Routin | 03/25/2013 | | Results for this | | DRUG PANEL, QUAL | e | 1:55 AM | | procedure are in the | | | | PDT | | results section. | + +--------+ + + + | DRUGS OF ABUSE, | Routin | 03/25/2013 | | Results for this | | CANNABINOIDS, | e | 1:55 AM | | procedure are in the | | CONFIRM, URINE | | PDT | | results section. | + +--------+ + + + | DRUGS OF ABUSE, | Routin | 03/25/2013 | | Results for this | | OPIATES, CONFIRM, | e | 1:55 AM | | procedure are in the | | URINE | | PDT | | results section. | + +--------+ + + + | URINALYSIS WITH | Routin | 03/25/2013 | | Results for this | | MICROSCOPIC | e | 1:55 AM | | procedure are in the | | | | PDT | | results section. | + +--------+ + + + | TROPONIN I | Routin | 03/24/2013 | | Results for this | | | e | 5:54 PM | | procedure are in the | | | | PDT | | results section. | + +--------+ + + + | CK-MB | Routin | 03/24/2013 | | Results for this | | | e | 5:54 PM | | procedure are in the | | | | PDT | | results section. | + +--------+ + + + | MYOGLOBIN | Routin | 03/24/2013 | | Results for this | | | e | 5:54 PM | | procedure are in the | | | | PDT | | results section. | + +--------+ + + + | PROTIME INR | Routin | 03/24/2013 | | Results for this | | | e | 12:33 PM | | procedure are in the | | | | PDT | | results section. | + +--------+ + + + | CBC WITH | Routin | 03/24/2013 | | Results for this | | DIFFERENTIAL | e | 12:33 PM | | procedure are in the | | | | PDT | | results section. | + +--------+ + + + | COMPREHENSIVE | Routin | 03/24/2013 | | Results for this | | METABOLIC PANEL | e | 12:33 PM | | procedure are in the | | | | PDT | | results section. | + +--------+ + + + | EXTRA HOLD TUBE(S) | Routin | 03/24/2013 | | Results for this | | | e | 12:31 PM | | procedure are in the | | | | PDT | | results section. | + +--------+ + + + | XR ABDOMEN 2 VW | | 03/24/2013 | | Results for this | | | | 12:30 PM | | procedure are in the | | | | PDT | | results section. | + +--------+ + + + | TYPE AND SCREEN | Routin | 03/24/2013 | | Results for this | | | e | 11:46 AM | | procedure are in the | | | | PDT | | results section. | + +--------+ + + + | COMPREHENSIVE | Routin | 03/24/2013 | | Results for this | | METABOLIC PANEL | e | 11:17 AM | | procedure are in the | | | | PDT | | results section. | + +--------+ + + + | EXTRA HOLD TUBE(S) | Routin | 03/24/2013 | | Results for this | | | e | 11:16 AM | | procedure are in the | | | | PDT | | results section. | + +--------+ + + + | PROTIME INR | Routin | 03/24/2013 | | Results for this | | | e | 11:16 AM | | procedure are in the | | | | PDT | | results section. | + +--------+ + + + | CBC WITH | Routin | 03/24/2013 | | Results for this | | DIFFERENTIAL | e | 11:16 AM | | procedure are in the | | | | PDT | | results section. | + +--------+ + + + documented in this encounter Results Drugs of Abuse, Opiates, Confirm, Urine (03/25/2013 1:55 AM PDT) + + + + + + | Component | Value | Ref Range | Performed | Pathologist | | | | | At | Signature | + + + + + + | Morphine | Positive (A)Comment: 679 | Negative ng/mL | [facility] | | | Urine | | | [facility] | | | | | | [facility] | | | | | | MEDICAL | | | | | | CENTER | | | | | | LABORATORY | | + + + + + + | Oxymorphone | Positive (A)Comment: 383 | Negative ng/mL | [facility] | | | LCMS | | | [facility] | | | | | | HEART | | | | | | MEDICAL | | | | | | CENTER | | | | | | LABORATORY | | + + + + + + | Hydromorpho | Positive (A)Comment: | Negative ng/mL | [facility] | | | ne | 1037 | | [facility] | | | | | | HEART | | | | | | MEDICAL | | | | | | CENTER | | | | | | LABORATORY | | + + + + + + | Codeine | Negative | Negative ng/mL | [facility] | | | | | | [facility] | | | | | | HEART | | | | | | MEDICAL | | | | | | CENTER | | | | | | LABORATORY | | + + + + + + | Oxycodone | Positive (A)Comment: | Negative ng/mL | [facility] | | | | 1257 | | [facility] | | | | | | HEART | | | | | | MEDICAL | | | | | | CENTER | | | | | | LABORATORY | | + + + + + + | Hydrocodone | NegativeComment: Liquid | Negative ng/mL | [facility] | | | | Chromatography Mass | | [facility] | | | | Spectrometry | | HEART | | | | confirmation of | | MEDICAL | | | | Morphine, Oxymorphone, | | CENTER | | | | Hydromorphone, Codeine, | | LABORATORY | | | | Oxycodone, and | | | | | | Hydrocodone to 150 ng/mL | | | | | | cutoff. | | | | + + + + + + + + | Specimen | + + | | + + + + + + + | Performing | Address | City/State/Zipcode | Phone Number | | Organization | | | | + + + + + | [facility] | [address] | [place] [address] | | | [facility] | | | | | LABORATORY | | | | + + + + + Drugs of Abuse, Cannabinoids, Confirm, Urine (03/25/2013 1:55 AM PDT) + + + + + + | Component | Value | Ref Range | Performed | Pathologist | | | | | At | Signature | + + + + + + | THC 50 | Positive (A)Comment: | Negative ng/mL | [facility] | | | CONFIRM | Cutoff: 20 ng/mL | | [facility] | | | URINE | | | HEART | | | [...] + + | [facility] | [address] [place] | [place] [address] | | | [facility] | | | | | LABORATORY | | | | + + + + + Drugs of Abuse, 10 Drug Panel, Qual (03/25/2013 1:55 AM PDT) + + + + + + | Component | Value | Ref Range | Performed | Pathologist | | | | | At | Signature | + + + + + + | Amp/Methamp | NegativeComment: Cutoff: | Negative ng/mL | [facility] | | | hetamine, | 1000 ng/mL | | [facility] | | | Screen, | | | HEART | | | Urine | | | MEDICAL | | | | | | CENTER | | | | | | LABORATORY | | + + + + + + | Cocaine | NegativeComment: Cutoff: | Negative ng/mL | [facility] | | | Screen, | 300 ng/mL | | [facility] | | | Urine | | | HEART | | | | | | MEDICAL | | | | | | CENTER | | | | | | LABORATORY | | + + + + + + | Opiates | Positive (A)Comment: | Negative ng/mL | [facility] | | | Screen, | Codeine Cutoff: | | [facility] | | | Urine | 300ng/mLMorphine Cutoff: | | HEART | | | | 300ng/mLOxycodone | | MEDICAL | | | | Cutoff: | | CENTER | | | | 2500ng/mLHydrocodone | | LABORATORY | | | | Cutoff: | | | | | | 400ng/mLHydromorphone | | | | | | Cutoff: 500ng/mL | | | | + + + + + + | Cannabinoid | Positive (A)Comment: | Negative ng/mL | [facility] | | | s Screen, | Cutoff: 50 ng/mL | | [facility] | | | Urine | | | HEART | | | | | | MEDICAL | | | | | | CENTER | | | | | | LABORATORY | | + + + + + + | Phencyclidi | NegativeComment: Cutoff: | Negative ng/mL | [facility] | | | ne Screen, | 25 ng/mL | | [facility] | | | Urine | | | HEART | | | | | | MEDICAL | | | | | | CENTER | | | | | | LABORATORY | | + + + + + + | Barbiturate | NegativeComment: Cutoff: | Negative ng/mL | [facility] | | | s Screen, | Phenobarbital 3000 | | [facility] | | | Urine | ng/mL, [place] other than | | HEART | | | | Phenobarb 300 ng/mL | | MEDICAL | | | | | | CENTER | | | | | | LABORATORY | | + + + + + + | Benzodiazep | NegativeComment: Cutoff: | Negative ng/mL | [facility] | | | malorie | 300 ng/mL | | [facility] | | | Screen, | | | HEART | | | Urine | | | MEDICAL | | | | | | CENTER | | | | | | LABORATORY | | + + + + + + | Methadone | NegativeComment: Cutoff: | Negative ng/mL | [facility] | | | Screen, | 300 ng/mL | | [facility] | | | Urine | | | HEART | | | | | | MEDICAL | | | | | | CENTER | | | | | | LABORATORY | | + + + + + + | Methaqualon | NegativeComment: Cutoff: | Negative ng/mL | [facility] | | | e Screen, | 300 ng/mL | | [facility] | | | Urine | | | HEART | | | | | | MEDICAL | | | | | | CENTER | | | | | | LABORATORY | | + + + + + + | Propoxyphen | NegativeComment: Cutoff: | Negative ng/mL | [facility] | | | e Screen, | 300 ng/mL | | [facility] | | | Urine | | | HEART | | | | | | MEDICAL | | | | | | CENTER | | | | | | LABORATORY | | + + + + + + | Creatinine, | 79 | >19 mg/dL | [facility] | | | Urine | | | [facility] | | | | | | HEART | | | | | | MEDICAL | | | | | | CENTER | | | | | | LABORATORY | | + + + + + + | pH, Urine | 6.8 | 3.0 - 11.0 | [facility] | | | | | [...] + | [facility] | [address] [facility] [address] | [place] [address] | | | [facility] | | | | | LABORATORY | | | | + + + + + Urinalysis With Microscopic (03/25/2013 1:55 AM PDT) + + + + + [...] + | Ketones, | Negative | Negative mg/dL | [facility] [...] - 1.030 | [facility] | | | [place] | | | [facility] | | | [...] + | Protein, | Negative | Negative mg/dL | [facility] [...] + + + + | Leukocyte | Large (A) | Negative | [facility] | | [...] + + + | RBC UA | 2 | <6 /hpf | [facility] | | [...] + + | [facility] | [address] | [place] [address] | | | [facility] | | | | | LABORATORY | | | | + + + + + Myoglobin (03/24/2013 5:54 PM PDT) + +-------+ + + + | Component | Value | Ref Range | Performed | Pathologist | | | | | At | Signature | + +-------+ + + + | MYOGLOBIN, | 18 | <70 ng/mL | [facility] | | | SERUM | | | [facility] | | | [...] + + | [facility] | [address] | [place] [address] | | | [facility] | | | | | LABORATORY | | | | + + + + + Troponin I (03/24/2013 5:54 PM PDT) + +-------+ + + + | Component | Value | Ref Range | Performed | Pathologist | | | | | At | Signature | + +-------+ + + + | Troponin I | 0.01 | 0.00 - 0.29 | [facility] | | | | | [...] + + | [facility] | [address] | [place] [address] | | | [facility] | | | | | LABORATORY | | | | + + + + + CK-MB (03/24/2013 5:54 PM PDT) + + + + + + | Component | Value | Ref Range | Performed | Pathologist | | | | | At | Signature | + + + + + + | CK TOTAL | 40 | 30 - 240 U/L | [facility] | | | | | | [facility] | | | | | | HEART | | | | | | MEDICAL | | | | | | CENTER | | | | | | LABORATORY | | + + + + + + | CK-MB | 3.1 | <7.5 ng/mL | [facility] | | | | | | [facility] | | | | | | HEART | | | | | | MEDICAL | | | | | | CENTER | | | | | | LABORATORY | | + + + + + + | CK Index | Not Indicated | <3.1 % | [facility] | | | | [...] + | [facility] | [address] [facility] [address] | [place] [address] | | | [facility] | | | | | LABORATORY | | | | + + + + + Comprehensive Metabolic Panel (03/24/2013 12:33 PM PDT) + + + + + [...] + + + | Glucose | 146 (H)Comment: Macedonian | 65 - 99 mg/dL | [facility] | | | | Diabetes Association | [...] + + + + | BUN | 13 | 8 - 25 mg/dL | [facility] [...] + + + + | Total | 7.7 | 6.1 - 8.4 g/dL | [facility] | | | Protein | | | [facility] | | | | | | HEART | | | | | | MEDICAL | | | | | | CENTER | | | | | | LABORATORY | | + + + + + + | Albumin | 4.3 | 3.5 - 5.0 g/dL | [facility] | | [...] + | Alkaline | 220 (H) | 35 - 115 U/L | [...] + + + + | ALT | 34 | 10 - 65 U/L | [facility] | [address] | [place] [address] | | | [facility] | | | | | LABORATORY | | | | + + + + + Protime INR (03/24/2013 12:33 PM PDT) + + + + + + | Component | Value | Ref Range | Performed | Pathologist | | | | | At | Signature | + + + + + + | Prothrombin | 11.6 | 10.9 - 14.8 sec | [facility] | | | Time | | | [facility] | | | | | | HEART | | | | | | MEDICAL | | | | | | CENTER | | | | | | LABORATORY | | + + + + + + | INR | 0.9Comment: Usual oral | 0.9 - 1.2 | [facility] | | | | anticoagulant range: 2.0 | | [facility] | | | | to 3.0 High level | | HEART | | | | oral anticoagulant | | MEDICAL | | | | range: 2.5 to 3.5 | | CENTER | | | | | | LABORATORY | | + + + + + + + + | Specimen | + + | | + + + + + + + | Performing | Address | City/State/Zipcode | Phone Number | | Organization | | | | + + + + + | [facility] | [address] | [place] [address] | | | [facility] | | | | | LABORATORY | | | | + + + + + CBC with Differential (03/24/2013 12:33 PM PDT) + + + + + [...] + + + + | RBC | 5.09 | 3.70 - 5.10 | [facility] | | | | | M/uL | [facility] | | | | | | HEART | | | | | | MEDICAL | | | | | | CENTER | | | | | | LABORATORY | | + + + + + + | Hemoglobin | 14.8 | 11.3 - 15.5 | [facility] | | | | | g/dL | [facility] | | | | | | HEART | | | | | | MEDICAL | | | | | | CENTER | | | | | | LABORATORY | | + + + + + + | Hematocrit | 44.5 | 34.0 - 46.0 % | [facility] | | | | | | [facility] | | | | | | HEART | | | | | | MEDICAL | | | | | | CENTER | | | | | | LABORATORY | | + + + + + + | MCV | 87.4 | 80.0 - 100.0 fL | [facility] | | | | | | [facility] | | | | | | HE[facility] | | | | | | MEDICAL | | | | | | CENTER | | | | | | LABORATORY | | + + + + + + | MCH | 29.2 | 27.0 - 34.0 pg | [facility] | | | | | | [facility] | | | | | | HE[facility] | | | | | | MEDICAL | | | | | | CENTER | | | | | | LABORATORY | | + + + + + + | MCHC | 33.4 | 32.0 - 35.5 | [facility] | | | | | g/dL | [facility] | | | | | | HEART | | | | | | MEDICAL | | | | | | CENTER | | | | | | LABORATORY | | + + + + + + | RDW-CV | 14.6 | 11.0 - 15.5 % | [facility] | | | | | | [facility] | | | | | | [facility] | | | | | | MEDICAL | | | | | | CENTER | | | | | | LABORATORY | | + + + + + + | Platelet | 267 | 150 - 400 K/uL | [facility] [...] + + + + | % | 88.9 (H) | 40.0 - 75.0 % | [facility] | | | Neutrophils | | | [facility] | | | | | | HEART | | | | | | MEDICAL | | | | | | CENTER | | | | | | LABORATORY | | + + + + + + | % | 8.6 (L) | 15.0 - 48.0 % | [facility] | | | Lymphocytes | | | [facility] | | | | | | HEART | | | | | | MEDICAL | | | | | | CENTER | | | | | | LABORATORY | | + + + + + + | % Monocytes | 1.8 | 0.0 - 12.0 % | [facility] | | | | | | [facility] | | | | | | HE[facility] | | | | | | MEDICAL | | | | | | CENTER | | | | | | LABORATORY | | + + + + + + | % | 0.1 | 0.0 - 7.0 % | [facility] | | | Eosinophils | | | [facility] | | | | | | HEART | | | | | | MEDICAL | | | | | | CENTER | | | | | | LABORATORY | | + + + + + + | % Basophils | 0.6 | 0.0 - 2.0 % | [facility] | | | | | | [facility] | | | | | | HE[facility] | | | | | | MEDICAL | | | | | | CENTER | | | | | | LABORATORY | | + + + + + + | Absolute | 6.40 | 1.90 - 7.40 | [facility] | | | Neutrophils | | K/uL | [facility] | | | | | | HEART | | | | | | MEDICAL | | | | | | CENTER | | | | | | LABORATORY | | + + + + + + | Absolute | 0.60 (L) | 1.00 - 3.90 | [facility] | | | Lymphocytes | | K/uL | [facility] | | | | | | HEART | | | | | | MEDICAL | | | | | | CENTER | | | | | | LABORATORY | | + + + + + + | Absolute | 0.10 | 0.00 - 0.80 | [facility] | | | Monocytes | | K/uL | [facility] | | | | | | HEART | | | | | | MEDICAL | | | | | | CENTER | | | | | | LABORATORY | | + + + + + + | Absolute | 0.00 | 0.00 - 0.50 | [facility] | | | Eosinophils | | K/uL | [facility] | | | | | | HEART | | | | | | MEDICAL | | | | | | CENTER | | | | | | LABORATORY | | + + + + + + | Absolute | 0.00 | 0.00 - 0.10 | [facility] | [...] + + | [facility] | [address] | [place] [address] | | | [facility] | | | | | LABORATORY | | | | + + + + + Extra Hold Tube(s) (03/24/2013 12:31 PM PDT) + +-------+ + + + [...] + + | [facility] | [address] | [place] [address] | | | [facility] | | | | | LABORATORY | | | | + + + + + XR Abdomen 2 VW (03/24/2013 12:30 PM PDT) + + | Specimen | + + | | + + + + + | Narrative | Performed At | + + + | Exam Performed Location: [facility] ABDOMEN | MISCELANIOUS | | TWO VIEWS CLINICAL INFORMATION: Central abdominal pain since 0600 | LAB | | today. COMPARISON: CT abdomen pelvis 03/04/2013 and additional | | | priors FINDINGS: Gas-filled, nondistended loops of small bowel | | | the left upper quadrant. Otherwise normal bowel gas pattern. No | | | evidence of free intraperitoneal gas. No abnormal abdominal | | | calcifications. The vascular calcifications noted in the pelvis. | | | No radiographic evidence for ascites. IMPRESSION: Gas-filled | | | loops of small bowel in the left upper quadrant without significant | | | distension is nonspecific. No evidence for obstruction or free air. | | | S: SQ ([id number]) Signed by: ADELA TAMEZ MD | | + + + + + | Procedure Note | + + | Tim, Rad Conversion - 07/28/2013 8:28 PM PDT Exam Performed Location: [facility] | | at [facility] TWO VIEWSCLINICAL INFORMATION:Central abdominal pain since 0600 | | today.COMPARISON:CT abdomen pelvis 03/04/2013 and additional priorsFINDINGS:Gas-filled, | | nondistended loops of small bowel the left upperquadrant. Otherwise normal bowel gas | | pattern. No evidence of freeintraperitoneal gas. No abnormal abdominal calcifications. | | Thevascular calcifications noted in the pelvis. No radiographicevidence for | | ascites.IMPRESSION:Gas-filled loops of small bowel in the left upper quadrant | | withoutsignificant distension is nonspecific. No evidence forobstruction or free air.S: | | SQ ([id number]) Signed by: ADELA TAMEZ MD | | | |FINDINGS: | |Gas-filled, nondistended loops of small bowel the left upper | |quadrant. Otherwise normal bowel gas pattern. No evidence of free | |intraperitoneal gas. No abnormal abdominal calcifications. The | |vascular calcifications noted in the pelvis. No radiographic | |evidence for ascites. | | | |IMPRESSION: | |Gas-filled loops of small bowel in the left upper quadrant without | |significant distension is nonspecific. No evidence for | |obstruction or free air. | | | | | |S: SQ ([id number]) Signed by: ADELA TAMEZ MD | + + + +---------+ + + | Performing | Address | City/State/Zipcode | Phone Number | | Organization | | | | + +---------+ + + | [facility] | | | [phone] | + +---------+ + + | [facility] | | | [phone] | + +---------+ + + Type and Screen (03/24/2013 11:46 AM PDT) + +-------+ + + + | Component | Value | Ref Range | Performed | Pathologist | | | | | At | Signature | + +-------+ + + + | EXTRA BLOOD | Done | | [facility] | [facility] | | | [facility] | | | [...] + + | [facility] | [address] | [place] [address] | | | [facility] | | | | | LABORATORY | | | | + + + + + Comprehensive Metabolic Panel (03/24/2013 11:17 AM PDT) + + + + + [...] + + + + | K | 6.5 ()Comment: | 3.5 - 5.0 | [facility] | | | | Verified by repeat | mmol/L | [facility] | | | | analysis.Verified by | | HEART | | | | readback. [facility] | | [facility] | | | | @[facility] | | CENTER | | | | | | LABORATORY | | + + + + + + | Cl | 104 | 99 - 109 mmol/L | [facility] [...] + + + + | Glucose | 149 (H)Comment: Macedonian | 65 - 99 mg/dL | [facility] [...] + + + + | BUN | 13 | 8 - 25 mg/dL | [facility] | | | | | | [facility] | | | | | | HE[facility] | | | | | | MEDICAL | | | | | | CENTER | | | | | | LABORATORY | | + + + + + + | Creatinine | 0.64Comment: IDMS | 0.50 - 1.00 | [facility] | | | | traceable creatinine | mg/dL | [facility] | | | | | | HEART | | | | | | MEDICAL | | | | | | CENTER | | | | | | LABORATORY | | + + + + + + | Calcium | 5.4 (LL)Comment: | 8.5 - 10.2 | [facility] | | | | Verified by repeat | mg/dL | [facility] | | | | analysis.Verified by | | HEART | | | | readback. [facility] | | MEDICAL | | | | [facility] | | CENTER | | | | | | LABORATORY | | + + + + + + | Total | 8.0 | 6.1 - 8.4 g/dL | [facility] | | | Protein | | | [facility] | | | | | | HEART | | | | | | MEDICAL | | | | | | CENTER | | | | | | LABORATORY | | + + + + + + | Albumin | 4.5 | 3.5 - 5.0 g/dL | [facility] | | | | | | [facility] | | | | | | HE[facility] | | | | | | MEDICAL | | | | | | CENTER | | | | | | LABORATORY | | + + + + + + | Bilirubin | 0.6 | 0.1 - 1.5 mg/dL | [facility] | | | Total | | | [facility] | | | | | | HEART | | | | | | MEDICAL | | | | | | CENTER | | | | | | LABORATORY | | + + + + + + | Alkaline | 222 (H) | 35 - 115 U/L | [facility] | | | Phosphatase | | | [facility] | | | | | | HEART | | | | | | MEDICAL | | | | | | CENTER | | | | | | LABORATORY | | + + + + + + | AST | 35 | 10 - 45 U/L | [facility] | | | | | | [facility] | | | | | | HEART | | | | | | MEDICAL | | | | | | CENTER | | | | | | LABORATORY | | + + + + + + | ALT | 39 | 10 - 65 U/L | [facility] [...] + + | [facility] | [address] | [place] [address] | | | HEART [facility] | | | | | LABORATORY | | | | + + + + + Protime INR (03/24/2013 11:16 AM PDT) + + + + + + | Component | Value | Ref Range | Performed | Pathologist | | | | | At | Signature | + + + + + + | Prothrombin | 11.3 | 10.9 - 14.8 sec | [facility] | | | Time | | | [facility] | | | | | | HEART | | | | | | MEDICAL | | | | | | CENTER | | | | | | LABORATORY | | + + + + + + | INR | 0.9Comment: Usual oral | 0.9 - 1.2 | [facility] | | | | anticoagulant range: 2.0 | | [facility] | | | | to 3.0 High level | | HEART | | | | oral anticoagulant | | MEDICAL | | | | range: 2.5 to 3.5 | | CENTER | | | | | | LABORATORY | | + + + + + + + + | Specimen | + + | | + + + + + + + | Performing | Address | City/State/Zipcode | Phone Number | | Organization | | | | + + + + + | [facility] | [address] | [place] [address] | | | [facility] | | | | | LABORATORY | | | | + + + + + CBC with Differential (03/24/2013 11:16 AM PDT) + + + + + + | Component | Value | Ref Range | Performed | Pathologist | | | | | At | Signature | + + + + + + | WBC | 7.7 | 3.8 - 11.0 K/uL | [facility] | | | | | | [facility] | | | | | | HEART | | | | | | MEDICAL | | | | | | CENTER | | | | | | LABORATORY | | + + + + + + | RBC | 5.27 (H) | 3.70 - 5.10 | [facility] | | | | | M/uL | [facility] | | | | | | HEART | | | | | | MEDICAL | | | | | | CENTER | | | | | | LABORATORY | | + + + + + + | Hemoglobin | 15.2 | 11.3 - 15.5 | [facility] | | | | | g/dL | [facility] | | | | | | HEART | | | | | | MEDICAL | | | | | | CENTER | | | | | | LABORATORY | | + + + + + + | Hematocrit | 46.0 | 34.0 - 46.0 % | [facility] | | | | | | [facility] | | | | | | HEART | | | | | | MEDICAL | | | | | | CENTER | | | | | | LABORATORY | | + + + + + + | MCV | 87.3 | 80.0 - 100.0 fL | [facility] | | | | | | [facility] | | | | | | HEART | | | | | | MEDICAL | | | | | | CENTER | | | | | | LABORATORY | | + + + + + + | MCH | 28.9 | 27.0 - 34.0 pg | [facility] | | | | | | [facility] | | | | | | HEART | | | | | | MEDICAL | | | | | | CENTER | | | | | | LABORATORY | | + + + + + + | MCHC | 33.1 | 32.0 - 35.5 | [facility] | | | | | g/dL | [facility] | | | | | | HEART | | | | | | MEDICAL | | | | | | CENTER | | | | | | LABORATORY | | + + + + + + | RDW-CV | 14.4 | 11.0 - 15.5 % | [facility] | | | | | | [facility] | | | | | | HEART | | | | | | MEDICAL | | | | | | CENTER | | | | | | LABORATORY | | + + + + + + | Platelet | 312 | 150 - 400 K/uL | [facility] [...] + + + + | % | 88.2 (H) | 40.0 - 75.0 % | [facility] | | | Neutrophils | | | [facility] | | | | | | HEART | | | | | | MEDICAL | | | | | | CENTER | | | | | | LABORATORY | | + + + + + + | % | 9.6 (L) | 15.0 - 48.0 % | [facility] | | | Lymphocytes | | | [facility] | | | | | | HEART | | | | | | MEDICAL | | | | | | CENTER | | | | | | LABORATORY | | + + + + + + | % Monocytes | 1.7 | 0.0 - 12.0 % | [facility] | | | | | | [facility] | | | | | | HEART | | | | | | MEDICAL | | | | | | CENTER | | | | | | LABORATORY | | + + + + + + | % | 0.2 | 0.0 - 7.0 % | [facility] | | | Eosinophils | | | [facility] | | | | | | HEART | | | | | | MEDICAL | | | | | | CENTER | | | | | | LABORATORY | | + + + + + + | % Basophils | 0.3 | 0.0 - 2.0 % | [facility] | | | | | | [facility] | | | | | | HEART | | | | | | MEDICAL | | | | | | CENTER | | | | | | LABORATORY | | + + + + + + | Absolute | 6.80 | 1.90 - 7.40 | [facility] | [...] | Absolute | 0.10 | 0.00 - 0.80 | [facility] | | | Monocytes | | K/uL | [facility] | | | | | | HEART | | | | | | MEDICAL | | | | | | CENTER | | | | | | LABORATORY | | + + + + + + | Absolute | 0.00 | 0.00 - 0.50 | [facility] | | | Eosinophils | | K/uL | [facility] | | | | | | HEART | | | | | | MEDICAL | | | | | | CENTER | | | | | | LABORATORY | | + + + + + + | Absolute | 0.00 | 0.00 - 0.10 | [facility] | [...] + + | [facility] | [address] | [place] [address] | | | HEART [facility] | | | | | LABORATORY | | | | + + + + + Extra Hold Tube(s) (03/24/2013 11:16 AM PDT) + +-------+ + + + [...] + + | [facility] | [address] | [place] [address] | | | [facility] | | | | | LABORATORY | | | | + + + + + documented in this encounter Visit Diagnoses Not on filedocumented in this encounter"
--- OUTSIDE RECORDS SUMMARY | ~2019-09-08 | XMS | Encounter Summary ---
Demographics + + + | Address | [address] | | | [place] [address] | + + + | Home Phone | | + + + | Preferred Language | Unknown | + + + | Marital Status | | + + + | Oriental Orthodox Affiliation | 1041 | + + + | Race | Unknown | + + + | Ethnic Group | Unknown | + + + Author + + + | Author | [facility] | | | and Ankitana | + + + | Organization | [facility] | | | and Ankitana [...] Team Providers + +------+ + | Care Chinese Teacher Name | Role | Phone | + +------+ + | Yolanda Lee | PCP | | + +------+ + Encounter Details +--------+---------+ + + + | Date | Type | Department | Care Team | Description | +--------+---------+ + + + | 08/13/ | Surgery | [facility] | Seamus Richard, | LEFT EXTRACTION | | 2018 | | MED CTR OR INTRA OP | MD [address] | CATARACT WITH LENS | | | | [address] | [place], [place] | IMPLANT | | | | [place], [place] | [address] | | | | | [address] | | | | | | [phone] | | | +--------+---------+ + + + [...] | | | | | | [place] [address] | | | | | | [phone] | | | | | | | [...] | | | | LARA WOODS MD ([id number]) | | | | | | on [...] | 1.00 | 0.60 - 1.30 | [facility] | | | | | mg/dL | [facility] | | | | | | MEDICAL | | | | | | CENTER - | | | | | | LABORATORY | | + + + + + + | eGFR if not | 56 (L)Comment: | >=60 | [facility] | | | | GLOMERULAR FILTRATION | mL/min/1.73m2 | [facility] | | | [facility] | RATE,ESTIMATED | | MEDICAL | | | | mL/min/1.06z0Dovc than | | CENTER - | | [...] | 8.9 | 8.3 - 10.5 | [facility] | | | | | mg/dL | [facility] | | | | | | MEDICAL | | | | | | CENTER - | | | | | | LABORATORY | | + + + + + + | Albumin | 3.6 | 3.2 - 5.0 g/dL | [facility] | | | | | | [facility] | | | | | | [...] + | BUN/Creatin | 28.0 | | [facility] | | | ine Ratio | | | [facility] | | [...] + + + + + | [facility] | [address] | [place] | [phone] | | [facility] | | [address] | | | - LABORATORY | | | | + + + + + CBC no Differential (08/13/2018 10:41 AM PST) + + + + + + | Component | Value | Ref Range | Performed | Pathologist | | | | | At | Signature | + + + + + + | WBC | 8.7 | 4.0 - 11.0 K/uL | [facility] | | | | | | [facility] | | | | | | MEDICAL | | | | | | CENTER - | | | | | | LABORATORY | | + + + + + + | RBC | 4.32 | 3.70 - 5.20 | [facility] | | | | | M/uL | [facility] | | | | | | [...] | | | | | WBC's | [facility] | | | | | | MEDICAL | | | | | | CENTER - | | | | | | LABORATORY | | + + + + + + | Absolute | 0.00 | 0.00 - 0.01 | [facility] | | | nRBC | | K/uL | [facility] | | | | | | [...] + + + + + | [facility] | 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 | + + documented in this encounter Administered Medications + +--------+---------+------+------+------+ [...] | | | | | | Starting [facility] 08/13/18 at 1034, For | | | [...] +---+---+ + +-------+ + +---+ + | balanced salts sterile | Given | 08/13/20 | 1 | | Surgical | | ophthalmic irrigation solution | | 18 12:13 | Applicat | | Site | | PRN, Starting [facility] 08/13/18 at | | PM PST | ion | | | | 1213, Intra-op | | | | | | + +-------+ + +---+ + + +---+ | | | + +---+ | diclofenac (VOLTAREN) 0.1 % | | | ophthalmic solution 1 drop 1 | | | drop, Left Eye, EVERY 5 MIN PRN, | | | prep eye for procedure, Starting | | | [facility] 08/13/18 at 1034, For 3 doses, | | | Pre-op | | + +---+ | | | + +---+ + +-------+ +--------+---+ + | EPINEPHrine 1 mg/mL injection | Given | 08/13/20 | 0.4 mg | | Surgical | | PRN, Starting [facility] 08/13/18 at | | 18 12:17 | | | Site | | 1217, Intra-op | | PM PST | | | | + +-------+ +--------+---+ + +---+---+ | | | +---+---+ + +-------+ +--------+---+---+ | flurbiprofen (OCUFEN) 0.03% | Given | 08/13/20 | 1 drop | | | | ophthalmic solution 1 drop 1 | | 18 11:46 | | | | | drop, Left Eye, EVERY 5 MIN, | | AM PST | | | | | First dose on [facility] 08/13/18 at | | | | [...] | | +---+---+ + +-------+ +-------+---+---+ | hyaluronate & chondroitin | Given | 08/13/20 | 1 kit | | | | hyaluronate (DUOVISC) intraocular | | 18 12:17 | | | | | kit PRN, Starting [facility] 08/13/18 | | PM PST | | | | | at 1217, Intra-op | | | | | | + +-------+ +-------+---+---+ +---+---+ | | | +---+---+ + +---------+ +---+-------+---+ | lactated ringers (LR) infusion | New Bag | 08/13/20 | | 100 | | | at 10-100 mL/hr, Intravenous, | | 18 10:59 | | mL/hr | | | CONTINUOUS, Starting [facility] 08/13/18 | | AM PST | | | | | at 1100, TKO., Pre-op | | | | | | + +---------+ +---+-------+---+ +---+---+ | | | +---+---+ + +-------+ +-------+---+ + | lidocaine (PF) 1% injection | Given | 08/13/20 | 2 mLs | | Surgical | | PRN, Starting [facility] 08/13/18 at | | 18 12:13 | | | Site | | 1213, Intra-op | | PM PST | | | | + +-------+ +-------+---+ + +---+---+ | | | +---+---+ + +-------+ +------+---+ + | lidocaine (PF) 2% injection | Given | 08/13/20 | 1 mL | | Surgical | | PRN, Starting [facility] 08/13/18 at | | 18 11:56 | | | Site | | 1156, Intra-op | | AM PST | | | | + +-------+ +------+---+ + +---+---+ | | | +---+---+ + +-------+ +--------+---+ + | moxifloxacin (VIGAMOX) 0.5 % | Given | 08/13/20 | 0.5 mg | | Eye-Left | | intracameral injection PRN, | | 18 12:31 | | | | | Starting [facility] 08/13/18 at 1231, | | PM PST | | | | | Intra-op | | | | | | + +-------+ +--------+---+ + + +---+ | | | + +---+ | ondansetron (ZOFRAN) injection | | | 4 mg 4 mg, Intravenous, ONCE | | | PRN, Nausea, Starting [facility] 08/13/18 | | | at 1222, For 1 dose, | | | Recovery/Phase I | | + +---+ | | | + +---+ | phenylephrine (HADLEY-SYNEPHRINE) | | | 10 % ophthalmic solution 1 drop | | | 1 drop, Left Eye, EVERY 5 MIN | | | PRN, Other, prep eye for | | | procedure, Starting [facility] 08/13/18 | | | at 1034, [...] | | | | First dose on [facility] 08/13/18 at | | | | [...] | + +---+ + +-------+ +--------+---+---+ | povidone-iodine 5 % ophthalmic | Given | 08/13/20 | 1 drop | | | | solution PRN, Starting [facility] | | 18 11:56 | | | | | 08/13/18 at 1156, Intra-op | | AM PST | | | | + +-------+ +--------+---+---+ +---+---+ | | | +---+---+ + +-------+ +--------+---+---+ | proparacaine (ALCAINE) 0.5% [...] | +---+---+ + +-------+ +--------+---+ + | triamcinolone acetonide | Given | 08/13/20 | 2.5 mg | | Eye-Left | | (KENALOG-10) 10 mg/mL injection | | 18 12:31 | | | | | PRN, Starting [facility] 08/13/18 at | | PM PST | | | | | 1231, Intra-op | | | | | | [...]
--- OUTSIDE RECORDS SUMMARY | ~2019-09-08 | XMS | Encounter Summary ---
Demographics + + + | Address | [address] | | | [place] [address] | + + + | Home Phone | | + + + | Preferred Language | Unknown | + + + | Marital Status | | + + + | Mandaeism Affiliation | 1041 | + + + | Race | Unknown | + + + | Ethnic Group | Unknown | + + + Author + + + | Author | [facility] | | | and Ankitana | + + + | Organization | [facility] | | [...] Team Providers + +------+ + | Care Power And Recovery Supervisor Name | Role | Phone | [...] + + | 05/20/ | Office | [facility] [place] | Jessy Agarwal MD | History of anemia | | 2019 | Visit | SLEEP DISORDER [address] | [address] | (Primary Dx) | | | | [address] | [place] | | | | | [place] [id number] | [address] | | | | | [phone] | | | +--------+---------+ + + + [...] breaths does not meet criteria for an wind development director ea or hypopnea. SLEEP STUDY HISTORY: None. REVELANT MEDICATIONS: Quetiapine, Fluoxetine, and lorazepam as needed. SUBJECTIVE: The patient rated sleep quality during sleep study as usual. Shoe Stock Associate note: patient tried and tolerated medium airfit [...] [place], | | | | | | [place] [address] | | | | | | [phone] | | | | | | | [...]
--- OUTSIDE RECORDS SUMMARY | ~2019-09-08 | XMS | Encounter Summary ---
Demographics + + + | Address | [address] | | | [place] [address] | + + + | Home Phone | | + + + | Preferred Language | Unknown | + + + | Marital Status | | + + + | Uatsdin Affiliation | 1041 | + + + | Race | Unknown | + + + | Ethnic Group | Unknown | + + + Author + + + | Author | [facility] | | | and Ankitana | + + + | Organization | [facility] | | | and [...] Team Providers + +------+ + | Care V Belt Skiver Name | Role | Phone | + +------+ + | Yolanda Lee | PCP | | + +------+ + Encounter Details +--------+---------+ + + + | Date | Type | Department | Care Team | Description | +--------+---------+ + + + | 06/29/ | Office | [facility] | Jayne Rayo | Status post three | | 2018 | Visit | [facility] | SALVATORE Barreto [address] | vessel coronary | | | | [facility] [address] [place], | artery bypass | | | | [address] | [place] [address] | (Primary Dx) | | | | [place] | [phone] | | | | | [address] | | | | | | [phone] | | | +--------+---------+ + + + [...] +---------+ + + | Blood Pressure | 119/76 | 06/29/2018 9:48 AM | | | | | PDT | | + +---------+ + + | Pulse | 88 | 06/29/2018 9:48 AM | | | | | PDT | | + +---------+ + + | Temperature | - | - | | + +---------+ + + | Respiratory Rate | - | - | | + +---------+ + + | Oxygen Saturation | 96% | 06/29/2018 9:48 AM | | | | | PDT [...] of this encounter Patient Instructions Patient Instructions Jayne Rayo ARNP - 06/29/2018 11:30 AM PDT 1. S/P CABG x 3 with L saphenous EVH --Advancing functionally as expected - continued pacing of activities for optimal recovery --Lifting restrictions reviewed at length - ongoing strict sternal precautions x 3 mos --No driving x 4 wks and/or if taking narcotics --Instructed to monitor for s/sx of infection: redness, swelling, drainage of incisions, fe santo >100 --Soap and water to incisions only, shower daily --Sutures removed w/o complaint --Instructed to continue use of IS and deep breathing to promote adequate lung aeration/rec overy 2. Disposition --Activity as tolerated. --Smoking cessation counseling - is currently reducing her smoking down to 1-2 cigs per day --No medication changes per med reconciliation - refilled oxycodone and ativan today - furt her refills through PCP --Follow up as directed with cardiology and primary care --Call or return to clinic with any questions/concerns or worsening of condition After Coronary Artery Bypass Surgery Your healthcare provider performed coronary artery bypass graft surgery (also called CABG, irving cabbage ). This surgery created new pathways around blocked parts of your h eart sblood vessels, allowing blood to reach your heart muscle.Your healthcare provide r used ahealthy blood vessel from another part of your body (a graft) to restore blood karena w. Activity Discuss with your healthcare doctor what you can and can t do as you recover. You will have good and bad days. This is normal. But tell your healthcare provider if you feel depre ssed, have trouble sleeping, or have a persistent decrease in appetite. Although these probl ems are common after surgery, they can slow your recovery. It s important to seek help. Let others drive you wherever you need to go for the first3 to 6weeks after your liliya felicia. Ask someone to stand nearby while you shower or do other activities, just in case you ne ed help. Avoid using very hot water while showering. It can affect your circulation and make you dizzy. Weigh yourself every day, at the same time of day, and in the same kind of clothes. Quic k weight gain can be a sign of a problem that needs your healthcare provider s attention. You may start doing light work around the house and yard after 2 to 3weeks at home. Do n tlift anything heavier [id number]. Your healthcare provider may give you a more s pecific weight restriction.Until approved by your healthcare provider, avoid mowing the la wn, vacuuming, driving, and doing other activities that could strain your breastbone. Ask your healthcare provider when you can expect to return to work. Pain relief You will recover faster after surgery if your pain is kept under control: Don t be surprised if you feel sharp pains as your breastbone heals or if you have sor eness in your incision during changes in weather. Tell your healthcare provider if you have questions about what you re feeling, if your medicines don t reduce your pain, or if you suddenly feel worse. Incision care Healing takes several weeks. The bandage or dressing on your chest will likely be removed b efore you go home. If itis still in place, ask your healthcare provider how you should car e for it after you return home.Do the following to care for your incision: If there are any steri-strips still on your incision, you can remove them after a week i f they haven't already fallen off. Clean your incision every day with soap and water. Gently pat the area of the incision to dry it. Don t use any powders, lotions, or oils on your incision until it is well healed. Lifestyle changes Ask your healthcare provider when you can start a walking program: If you haven t already started a walking program in the hospital, begin with short wal ks ([id number]) at home. Go a little longer each day. Choose a safe place with a level surface, such as a local park or mall. Wear supportive shoes to prevent injury to your knees and ankles. Walk with someone. It s more fun and helps you stay with it. Take your medicines exactly as directed. Don t skip doses. Maintain a healthy weight. Get help to lose any extra pounds. Avoid fatty and fried foods. Stick to lean meats, such as chicken or fish. Cut back on salt: Limit canned, dried, packaged, and fast foods. Don t add salt to your food at the table. Season foods with herbs instead of salt when you cook. Break the smoking habit. Enroll in a stop-smoking program to improve your chances of suc cess. When to call your healthcare provider Call your healthcare provider immediately if you have any of the following: Chest pain or a return of the heart symptoms you had before your surgery Fever of 100.4F (38C) or higher, or as directed by your healthcare provider Signs of infection (redness, swelling, drainage, or warmth) at the incision site Shortness of breath Fainting Weight gain of more than 3 pounds in 1 day, more than 5 pounds in 1 week, or whatever we ight gain you were told to report by your healthcare provider New or increasedswelling in your hands, feet, or ankles Unrelieved pain at the incision site(s) Changes in the location, type, or severity of pain Fast or irregular pulse Persistent abdominal pain Nausea Trouble urinating Any unusual bleeding Date Last Reviewed: 07/06/201619991760-0251 [employer]. [address] [place] [id number]. All [facility] reserved. This information is not intended as a substitute for professional medical care. Always follow your healthcare professional's instructions. documented in this encounter Progress Notes Jayne Rayo ARNP - 06/29/2018 11:30 AM PDTFormatting of this note might be differ ent from the original. [facility] Post-Operative Visit Pt. Name/Age/: Smitha Fletcher 62 y.o. 1955 Med. Record Number: [id number] Date of Service: 06/29/2018 Primary procedure: 1. Coronary Artery Bypass Grafting x 3, LITTLE-LAD, RSVG-OM2 and RSVG-PDA 2. Endoscopic leftgreater saphenous vein harvest Date of surgery: 06/11/18 Surgeon: Hemanth Webster MD; Cornelius Miller PA-C and Tisha Broussard PA-C - assisting Discharge Date: 06/15/18 Postop complications: In Hospital: --severe postoperative pain, history of drug use with high opioid needs, discharged with ox ycodone 10/325 #60 Post Discharge: None per pt. She is establishing with a new PCP in her local area ([place], [place]) SUBJECTIVE: The chart and medications were reviewed in detail. The patient was interviewed and examined . Smitha Fletcher is a 62 year-old woman who presents today in clinic, accompanied by her daughter, for her 2 week postoperative evaluation s/p CABG x 3 with L saphenous EVH. She u nderwent surgery without complication, but had increased pain postoperatively which necessit ated both long acting, PRN narcotics and lidocaine patches to her incision to obtain adequat e pain relief. She was unable to afford the long-term oxycodone and was subsequently discha rged home with oxycodone 10/325mg #60 on POD 4 in stable condition. She was instructed to r eturn to clinic for reassessment of her sternal incision and ensure she is maintaining villegas al precautions/restrictions. Today, she reports feeling pretty good. She continues to have quite a bit of pain which sh e attributes to doing much - but also has chronic pain issues underlying her sternal discomf ort. She has some dissolvable sutures she would like removed today, and is requesting a ref ill prescription for her oxycodone and lorazepam as she is currently between providers. She did not make her follow up appointment scheduled for 06/23/18 with SALVATORE Cotto (for Dr Roa) per her discharge instructions. The majority of her questions are related to postoperative restrictions/limitations and chilo oing sternal precautions. She is gradually resuming normal daily activities and reports no fever/chills, shortness of breath, radiating chest pain, sternal popping/clicking or palpita tions. Current Outpatient Prescriptions Medication Sig Dispense Refill acetaminophen (Q-PAP) 500 mg tablet Take 500 mg by mouth every 6 hours as needed for Pa in. aspirin 325 MG EC tablet Take 1 tablet by mouth Daily. 30 tablet 0 atorvaSTATin (LIPITOR) 40 mg tablet Take 1 tablet by mouth nightly. 30 tablet 0 calcium-vitamin D (OSCAL) 500 mg-200 units per tablet Take 2 tablets by mouth 3 times d aily (with meals). (Patient not taking: Reported on 06/07/2018) 90 tablet 3 carvedilol (COREG) 6.25 mg tablet Take 0.5 tablets by mouth 2 times daily (with breakfa st & dinner). 30 tablet 0 dicyclomine (BENTYL) 20 MG tablet Take 1 tablet by mouth every 6 hours as needed (abdom inal pain/cramping). (Patient not taking: Reported on 06/07/2018) 20 tablet 0 docusate sodium (COLACE) 100 MG capsule Take 100 mg by mouth Twice daily as needed for Constipation. 30 capsule 0 ergocalciferol (VITAMIN D-2) 50,000 units capsule Take 50,000 Units by mouth Once a wee k. ferrous sulfate 325 mg tablet Take 1 tablet by mouth 2 times daily (with breakfast & di nner). 60 tablet 0 FLUoxetine (PROZAC) 20 mg capsule Take 20 mg by mouth Daily. hydrOXYzine hydrochloride (ATARAX) 25 mg tablet Take 25 mg by mouth nightly as needed f or Itching or Anxiety. ibuprofen (ADVIL,MOTRIN) 600 MG tablet Take 1 tablet by mouth every 6 hours as needed f or Pain. 60 tablet 0 LORazepam (ATIVAN) 1 mg tablet Take 1 tablet by mouth every 6 hours as needed for Anxie ty. 20 tablet 0 Multiple Vitamins-Minerals (ADULT MULTIVITAMIN WITH MINERALS/IRON) TABS Take 1 tablet b y mouth Daily. (Patient not taking: Reported on 06/07/2018) 90 each 3 ondansetron (ZOFRAN ODT) 8 mg disintegrating tablet Take 1 tablet by mouth every 8 hour s as needed. (Patient not taking: Reported on 06/07/2018) 20 tablet 0 oxyCODONE (OXYCONTIN) 30 mg ER abuse-deterrent tablet Take 1 tablet by mouth every 12 h ours. 28 tablet 0 oxyCODONE-acetaminophen (PERCOCET) 10-325 mg per tablet Take 1 tablet by mouth every 6 hours as needed for Pain. 60 tablet 0 Polysaccharide Iron Complex 50 MG CAPS Take 1 capsule by mouth 3 times daily (with meal s). (Patient not taking: Reported on 06/07/2018) 90 capsule 2 QUEtiapine (SEROQUEL) 100 mg tablet Take 100 mg by mouth nightly. senna (SENOKOT) 8.6 mg tablet Take 2 tablets by mouth Twice daily as needed for Consti pation. 40 tablet 0 No current facility-administered medications for this visit. OBJECTIVE: BP: 119/76 Pulse: 88 SpO2: 96 % on room air Exam: Gen: alert, well nourished, no acute distress Cardiovascular: RRR, no murmurs, rubs, or gallops Lungs: CTAB, no wheezes, rhonchi, or rales, chest wall expansion symmetric Abdomen: Soft, nondistended, non-tender, normal bowel tones, no organomegaly Extremities: No LE edema or cyanosis, distal pulses 3+ and symmetric bilaterally Wounds: Clean, dry and intact, surgical incision sites well approximated, no drainage or er ythema, three retained dissolvable sutures CDI Sternum: Stable, nontender, symmetric with head turn and cough Imaging: No results found. Labs: No results found for this or any previous visit (from the past 24 hour(s)). ASSESSMENT AND PLAN: 1. S/P CABG x 3 with L saphenous EVH --Advancing functionally as expected - continued pacing of activities for optimal recovery --Lifting restrictions reviewed at length - ongoing strict sternal precautions x 3 mos --No driving x 4 wks and/or if taking narcotics, no driving due to pain medication use --Instructed to monitor for s/sx of infection: redness, swelling, drainage of incisions, fe santo >100 --Soap and water to incisions only, shower daily --Sutures removed w/o complaint --Instructed to continue use of IS and deep breathing to promote adequate lung aeration/rec overy 2. Disposition --Activity as tolerated. --Smoking cessation counseling - is currently reducing her smoking down to 1-2 cigs per day --No medication changes per med reconciliation, oxycodone 10-325 #60 and lorazepam 1mg #20 prescriptions given to pt today --Follow up as directed with cardiology and primary care --No need for one month follow up appointment unless she is in town - she will call our off ice in a month with an update. She understands importance of close follow up with her local providers. --Call or return to clinic with any questions/concerns or worsening of condition Electronically signed by: SALVATORE Restrepo, SHANA, DEWER-C 06/29/2018 10:18 Jayne Rayo DNP, DEWER-C Cardiothoracic Surgery [facility] [address], [address] [place] [address] Portions of this chart may have been created with [employer] voice recognition software. Occasi onal wrong-word or [...] | | | | | | [place], | | | | | | [place] [address] | | | | | | [phone] | | | | | | | | +--------+---------+ + + + documented as of this encounter Visit Diagnoses + + | Diagnosis | + + | Status post three vessel coronary artery bypass - Primary Postsurgical aortocoronary | | bypass status | + + documented in this encounter"
--- OUTSIDE RECORDS SUMMARY | ~2019-09-08 | XMS | Encounter Summary ---
Demographics + + + | Address | [address] | | | [place] [address] | + + + | Home Phone | | + + + | Preferred Language | Unknown | + + + | Marital Status | | + + + | Bahai Affiliation | 1041 | + + + | Race | Unknown | + + + | Ethnic Group | Unknown | + + + Author + + + | Author | [facility] | | | and Ankitana | + + + | Organization | [facility] | | | and Ankitana [...] Team Providers + +------+ + | Care Asbestos Shingle Inspector Name | Role | Phone | + +------+ + | Yolanda Lee | PCP | | + +------+ + Encounter Details +--------+ + + + + | Date | Type | Department | Care Team | Description | +--------+ + + + + | 03/11/ | Hospital | [facility] | Jesse Siddiqi MD | | | 2015 | Encounter | [facility] | [address], | | | | | NEPHROLOGY [address] | [address] floor [place], | | | | [address] [place], [place] | [place] [address] | | | | | [address] | [phone] | | | | | [phone] | | | +--------+ + + + [...] | | | | | | [place] [address] | | | | | | [phone] | | | | | | | | +--------+---------+ + + + documented as of this encounter Visit Diagnoses Not on filedocumented in this encounter Administered Medications + +---------+ +------+-------+------+ | Medication Order | MAR | Action | Dose | Rate | Site | | | Action | Date | | | | + +---------+ +------+-------+------+ | cefTRIAXone (ROCEPHIN) 2 g in | New Bag | 03/11/20 | 2 g | 100 | | | sodium chloride 0.9% 50 mL IVPB | | 15 5:07 | | mL/hr | | | 2 g, Intravenous, Administer over | | PM PDT | | | | | 30 Minutes, ONCE, 03/11/15 at | | | | | | | 1715, For 1 dose, One dose | | | | | | | Activate system and mix before | | | | | | | use., | | | | | | [...]
--- OUTSIDE RECORDS SUMMARY | ~2019-09-08 | XMS | Encounter Summary ---
Demographics + + + | Address | [address] | | | [place] [address] | + + + | Home Phone [...] [facility] | | | and Ankitana | + + + | Organization | [facility] | | | and Ankitana [...] Team Providers + +------+ + | Care Closet Builder Name | Role | Phone | + +------+ + PCP | Unavailable | + +------+ + Encounter Details +--------+ + + + + | Date | Type | Department | Care Team | Description | +--------+ + + + + | 07/28/ | Abstract | [place] [facility] | DATA MIGRATION [facility] | | | 2012 | | Conversion Location | SR | | | | | [phone] | | | +--------+ + + + [...] + | Blood Pressure | 140/80 | 06/18/2013 12:00 AM | | | | | PDT | | + + + + + | Pulse | - | - | | + [...] + + + + | Weight | 64.9 kg (143 lb) | 06/18/2013 12:00 AM | | | | | PDT | | + + + + + | Height | 172.7 cm (5' 8") | 06/18/2013 12:00 AM | | | | | PDT | | + + + + + | Body Mass Index | 21.74 | 06/18/2013 12:00 AM | | | | | PDT | | + + + + + documented in this encounter Plan of Treatment +--------+---------+ + + + | Date | Type | Specialty | Care Team | Description | +--------+---------+ + + + | 10/28/ | Office | Cardiology | Carol, | | | 2020 | Visit | | SALVATORE Moreno [address] | | | | | | [place], | | | | | | [place] [address] | | | | | | [phone] | | | | | | | | +--------+---------+ + + + documented as of this encounter Visit Diagnoses Not on filedocumented in this encounter
--- OUTSIDE RECORDS SUMMARY | ~2019-09-08 | XMS | Encounter Summary ---
Demographics + + + | Address | [address] | | | [place] [address] | + + + | Home Phone [...] Author | [facility] | | | and Ankitana | + + + | Organization | [facility] | [...] Team Providers + +------+ + | Care Loss Prevention Auditor Name | Role | Phone | + [...] | | CARDIOLOGY [address] | Tiffanie BAND BOOKER [address] | | | | | [place], | [place], | | | | | [place] [address] | [place] [address] | | | | | [phone] | [phone] | | | | | | | [...] [place], | | | | | | [place] [address] | | | | | | [phone] | | | | | | | | +--------+---------+ + + + documented as of this encounter Visit Diagnoses Not on filedocumented in this encounter"
--- OUTSIDE RECORDS SUMMARY | ~2019-09-08 | XMS | Encounter Summary ---
Demographics + + + | Address | [address] | | | [place] [address] | + + + | Home Phone | | + + + | Preferred Language | Unknown | + + + | Marital Status | | + + + | Catholic Affiliation | 1041 | + + + | Race | Unknown | + + + | Ethnic Group | Unknown | + + + Author + + + | Author | [facility] | | | and Ankitana | + + + | Organization | [facility] | | | and [...] Team Providers + +------+ + | Care Cut Off Machine Unloader Name | Role | Phone | + +------+ + PCP | Unavailable | + +------+ + Encounter Details +--------+ + + + + | Date | Type | Department | Care Team | Description | +--------+ + + + + | 07/04/ | Orders Only | [facility] | Ambrose Matthew, | | | 2007 | | [facility] | [address] [facility] | | | | | LABORATORY [address] | [place] | | | | | [address] [place] | [address] | | | | | [address] | | | | | | [phone] | | | +--------+ + + + [...] | | | | | | [place] [address] | | | | | | [phone] | | | | | | | | +--------+---------+ + + + documented as of this encounter Procedures + +--------+ + + + | Procedure Name | Priori | Date/Time | Associated Diagnosis | Comments | | | ty | | | | + +--------+ + + + | CYTOLOGY | Routin | 07/04/2008 | | Results for this | | | e | 12:00 AM | | procedure are in the | | | | PDT | | results section. | + +--------+ + + + documented in this encounter Results Cytology (07/04/2008 12:00 AM PDT) + + | Specimen | + + | | + + + + + | Narrative | Performed At | + + + | SPEC: [id number] RECD: 07/04/2008 15:56 STATUS: SOUT | [facility] | | REQ NUM: | [facility] | | BAILEY: 07/04/2008 00:[address]: Ambrose Matthew ENTERED: | HOSPITAL | | 07/04/2008 15:57 SP TYPE: CYTOLOGY [facility] DR: TISSUES: | LABORATORY | | Elbow, NOS - RT ELBOW CLINICAL HISTORY Right | | | elbow soft tissue mass; atypical bursitis | | | CYTODIAGNOSIS RIGHT ELBOW MASS, NEEDLE ASPIRATION CYTOLOGY: | | | - NEGATIVE FOR MALIGNANT CELLS. - FINDINGS ARE | | | CONSISTENT WITH BENIGN EPIDERMAL INCLUSION CYST. Dictated | | | by: Ladarius Foster GROSS DESCRIPTION 15 mL pink | | | fluid with small floating fragments 2 prepared slides | | | Dictated by: Ladarius Foster MICROSCOPIC EXAMINATION The | | | specimen is processed as a monolayer and direct smears. These reveal | | | numerous anucleated squamous epithelial cells along with occasional | | | nucleated squamous cells. The nuclei appear to be cytologically bland | | | without significant atypia identified. Scattered background | | | inflammatory cells are included. Dictated by: Ladarius | | | Kristin | | | | | | Signed By: Ladarius Foster 07/05/2008 | | | | | | | | + + + + + + + + | Performing | Address | City/State/Zipcode | Phone Number | | Organization | | | | + + + + + | [facility] | [address] | [place] [address] | | | [facility] | | [...]
--- OUTSIDE RECORDS SUMMARY | ~2019-09-08 | XMS | Encounter Summary ---
Demographics + + + | Address | [address] | | | [place] [address] | + + + | Home Phone | | + + + | Preferred Language | Unknown | + + + | Marital Status | | + + + | Uatsdin Affiliation | 1041 | + + + | Race | Unknown | + + + | Ethnic Group | Unknown | + + + Author + + + | Author | [facility] | | | and Ankitana | + + + | Organization | [facility] | | | and [...] Team Providers + +------+ + | Care Plate Maker Zinc Name | Role | Phone | + [...] | | | | | [address] | [place] | | | | | [place] | [address] | | | | | [address] | | | | | | [phone] | | | +--------+ + + + [...] 09/10/18 1550 by | | eral | [id number] catheter system; | LINDSAY LOWRY | [place] [...] | | | | | | [place] [address] | | | | | | [phone] | | | | | | | [...] 18 2:57 | | | | | 09/10/18 at 1457, Anesthesia | | PM PST [...]
--- OUTSIDE RECORDS SUMMARY | ~2019-09-08 | XMS | Encounter Summary ---
Demographics + + + | Address | [address] | | | [place] [address] | + + + | Home Phone | | + + + | Preferred Language | Unknown | + + + | Marital Status | | + + + | Rastafari Affiliation | 1041 | + + + | Race | Unknown | + + + | Ethnic Group | Unknown | + + + Author + + + | Author | [facility] | | | and Ankitana | + + + | Organization | [facility] | | | and [...] Team Providers + +------+ + | Care Project Controller Name | Role | Phone | + [...] [address] | | | | | [facility] | [place] [address] | | | | | [place] | [phone] | | | | | [place] | | | | | | [address] | | | | | | [phone] | | | +--------+ + + + [...] [place], | | | | | | [place] [address] | | | | | | [phone] | | | | | | | | +--------+---------+ + + + documented as of this encounter Visit Diagnoses Not on filedocumented in this encounter"
--- OUTSIDE RECORDS SUMMARY | ~2019-09-08 | XMS | Encounter Summary ---
Demographics + + + | Address | [address] | | | [place] [address] | + + + | Home Phone [...] Author | [facility] | | | and Ankitana | + + + | Organization | [facility] | | | and [...] Team Providers + +------+ + | Care Defensive Fire Control Systems Operator Name | Role | Phone | [...] | | CARDIOLOGY [address] | Tiffanie SALES LEDGER ADMINISTRATOR [address] | | | | | [place], | [place], | | | | | [place] [address] | [place] [address] | | | | | [phone] | [phone] | | | | | | | [...] [place], | | | | | | [place] [address] | | | | | | [phone] | | | | | | | | +--------+---------+ + + + documented as of this encounter Visit Diagnoses Not on filedocumented in this encounter"
--- OUTSIDE RECORDS SUMMARY | ~2019-09-08 | XMS | Encounter Summary ---
Demographics + + + | Address | [address] | | | [place] [address] | + + + | Home Phone | | + + + | Preferred Language | Unknown | + + + | Marital Status | | + + + | Scientologist Affiliation | 1041 | + + + | Race | Unknown | + + + | Ethnic Group | Unknown | + + + Author + + + | Author | [facility] | | | and Ankitana | + + + | Organization | [facility] | | | and Ankitana | [...] Team Providers + +------+ + | Care Beauty Counselor Name | Role | Phone | + [...] | | | | | [place] | [address] | | | | | [place] | | | | | | [address] | | | | | | [phone] | | | +--------+ + + + [...] [place], | | | | | | [place] [address] | | | | | | [phone] | | | | | | | | +--------+---------+ + + + documented as of this encounter Visit Diagnoses Not on filedocumented in this encounter"
--- OUTSIDE RECORDS SUMMARY | ~2019-09-08 | XMS | Encounter Summary ---
Demographics + + + | Address | [address] | | | [place] [address] | + + + | Home Phone | | + + + | Preferred Language | Unknown | + + + | Marital Status | | + + + | Islam Affiliation | 1041 | + + + | Race | Unknown | + + + | Ethnic Group | Unknown | + + + Author + + + | Author | [facility] | | | and Ankitana | + + + | Organization | [facility] | | | and [...] Team Providers + +------+ + | Care Factorer Name | Role | Phone | + +------+ + | Kiran Oneill DO | PCP | | + +------+ + Reason for Visit Evaluate & Treat (Routine) +--------+ + + [...] | apnea, | [address] | [place] | | | | | unspecified | [place] | [place], | | | | | type | [place], [place] | [place] [address] | | | | | Procedures | [address] | Phone: | | | | | [place] POLYSOM | Phone: | [phone] | | | | | 6/>YRS SLEEP | [phone] | Fax: | | | | | 4/> ADDL | Fax: | [phone] | | | | | SAJAN ATTND | [phone] | | | | | | [place] POLYSOM | | | | | | [...] | | | TCO2. | | | +--------+ + + + + + Encounter Details +--------+ + + + + | Date | Type | Department | Care Team | Description | +--------+ + + + + | 03/10/ | Hospital | [facility] | Jessy Agarwal MD | Sleep apnea, | | 2019 - | Encounter | MED CTR SLEEP | [address] | unspecified type | | | | CENTER [address] | [place] | | | 03/11/ | | [place] | [address] | | | 2018 | | [address] | | | | | | [phone] | | | +--------+ + + + [...] | | 0 | | | | (TYLENOL) 500 mg | every 6 hours as | | | | | | tablet | needed for Pain. | | | | | + + + +---------+ + + | aspirin 81 mg EC | Take 81 mg by mouth | | 0 | | | | tablet | Daily. | | | | | + + + +---------+ + + | atorvaSTATin | Take 1 tablet by | 90 | 3 | 10/01/20 | | | (LIPITOR) 80 MG | mouth nightly. | tablet | | 18 | | | tabletIndications: | | | | | | | ASHD | | | | | | | (arteriosclerotic | | | | | | | heart disease), | | | | | | | Mixed hyperlipidemia | | | | | | + [...] tablet by | 60 | 11 | 11/25/19 | | | (PRINIVIL, ZESTRIL) | mouth 2 times daily. | tablet | | 19 | | | 20 mg tablet | | [...] + + + +---------+ + + | metoprolol | Take 1.5 tablets by | 45 | 11 | 11/25/19 | | | succinate | mouth Daily. She now | tablet | | 19 | | | (TOPROL-XL) 100 mg | takes 150 mg daily | | | | | | ER | | | | | | | tabletIndications: | | | | | | | ASHD | | | | | | | (arteriosclerotic | | | | | | | heart disease) | | | | | | + [...] [place], | | | | | | [place] [address] | | | | | | [phone] | | | | | | | | +--------+---------+ + + + documented as of this encounter Procedures + +--------+ + + + | Procedure Name | Priori | Date/Time | Associated Diagnosis | Comments | | | ty | | | | + +--------+ + + + | SLEEP STUDY | Routin | 03/21/2019 | | Results for this | | DIAGNOSTIC ONLY NO | e | 1:07 PM | | procedure are in the | | PAP | | PDT | | results section. | + +--------+ + + + documented in this encounter Results Sleep study diagnostic only (no PAP) (03/21/2019 1:07 PM PDT) + + + | Narrative | Performed At | + + + | Jessy Agarwal, | | | 03/21/2019 13:29 [facility] | | | [place] [address] Polysomnogram | | | Report on Smitha Pichardo performed on March 10, 2019 PATIENT | | | IDENTIFICATION: Smitha Pichardo IS a 63 y.o..-year-old female. | | | with a history of coronary artery disease with ischemic | | | cardiomyopathy, h/o of cardiac arrest post stenting in 2011, | | | hyperlipidemia, tobacco use, depression, chronic kidney disease, | | | presenting with snoring, witnessed apnea, awakening with choking, | | | frequent awakenings at night, nocturia for evaluation of obstructive | | | sleep apnea. BMI: 28 Technical Information: Please see technical data | | | which is attached. Definitions (The AASM Manual for the Scoring of | | | Sleep and Associated Events, Version 2.5; 2018): Apnea: There is a | | | drop in the peak signal excursion by 90% or greater of pre-event | | | baseline using an oronasal thermal sensor (diagnostic study), PAP | | | device flow (titration study), or an alternative apnea sensor | | | (diagnostic study); the duration of the 90% or greater drop in sensor | | | signal is 10 seconds or longer. Obstructive Apnea: Event associated | | | with continued or increased inspiratory effort throughout the entire | | | period of absent airflow. Central Apnea: Event associated with | | | absent inspiratory effort throughout the entire period of absent | | | airflow. Mixed Apnea: Event associated with absent inspiratory | | | effort in the initial portion of the event followed by resumption of | | | inspiratory effort during the second portion of the event. | | | Hypopnea:Nasal pressure excursion drop by 30% or more from baseline, | | | lasting at lease 10 seconds and 90% of the event's duration meets this | | | amplitude criteria. This is associated with a 4% or greater | | | desaturation from pre-baseline Respiratory Event Related Arousal: A | | | sequence of breaths lasting 10 seconds or longer characterized by | | | increasing respiratory effort or by flattening of the inspiratory | | | portion of the nasal pressure (diagnostic study) or PAP device flow | | | (titration study) waveform leading to arousal from sleep when the | | | sequence of breaths does not meet criteria for an apnea or hypopnea. | | | SLEEP STUDY HISTORY:None. REVELANT MEDICATIONS: Quetiapine, | | | Fluoxetine, and lorazepam as needed. SUBJECTIVE:The patient rated | | | sleep quality during sleep study as usual.Java Developer Analyst note: patient | | | tried and tolerated medium airfit p10 mask. She may need a chin starp | | | for mouth leak. SLEEP ARCHITECTURE AND EEG:? Total sleep time was 485 | | | minutes. Sleep efficiency was 89.2% and was within normal limits.? | | | Sleep onset latency was 14.5 minutes and was within normal limits.? | | | REM latency was 86.5 minutes and was within normal limits.? Percent of | | | time in stage N3 was 7.2% and was decreased.? Percent of time in | | | stage REM was 11.3 % and was decreased.? Arousal Index for this | | | diagnostic study was 19.8/hour and was mildly increased, with 13 | | | respiratory arousals/hour and 5.3 spontaneous arousals/hour. | | | RESPIRATORY:? Respiratory disturbance index (RDI) was 18.3, consisting | | | of total 61 hypopneas, 4 obstructive apneas, 0 mixed apneas, and 6 | | | central apneas and 77 RERAs. AHI was 8.8 and was mildly elevated.? | | | Sleep disordered breathing was worsened in supine position with | | | supine AHI of 14.5 and RDI of 27. Patient spent 55.4% of total sleep | | | time in supine position. Nonsupine AHI was 1.7 and nonsupine RDI | | | was 7.5. ? Sleep disordered breathing was worsened in REM sleep with | | | REM AHI and RDI of 21.8. Non-REM AHI was 7.1 and normal REM RDI was | | | 17.9.. ? Mean SpO2 was 93 %, daryl SpO2 was 79%, and amount of total | | | sleep time spent below SpO2 of 88% was 19.5 minutes. 4% Oxygen | | | Desaturation Index (SIERRA) was 8.2 and was mildly elevated.? Snoring was | | | mild in nonsupine position, and mild to moderate in supine position.? | | | ETCO2 and TCO2 were not elevated.? Claudy-Victoria breathing was not | | | observed. LIMB MOVEMENTS:? Total sleep periodic limb movement index | | | was 33 and was mildly to moderately increased. ? These limb movements | | | were significantly associated with respiratory event related | | | arousals. EKG:Normal sinus rhythm was noted with mean heart rate of | | | 58, 56, 58 beats per minute in wake, non-REM, and REM sleep | | | respectively.. INTERPRETATION: - This polysomnography showed sleep | | | apnea which was obstructive in nature, and it was mild in frequency of | | | events, and mild in frequency of desaturations. Sleep apnea was | | | worsened in supine position and in stage R sleep. 55.4% Supine | | | sleep, and 11.3% of stage R sleep was captured. Daryl SpO2 was 79%, | | | and amount of total sleep time spent below SpO2 of 88% was 19.5 | | | minutes. hypoventilation was not observed. - Sleep efficiency was | | | normal, and sleep was mildly fragmented. - Periodic limb movement | | | index was mildly to moderately elevated, and these limb movements were | | | not significantly associated with respiratory event related arousals. | | | RECOMMENDATIONS:1. A trial of auto-PAP at 5-15 cm H2O with a medium | | | airfit p10 mask.2. Clinical correlation for excessive leg movements | | | Jessy Agarwal MD Portions of this chart may have been created with | | | [email or web address] voice recognition software. Occasional wrong-word or | | | | | | sound-alike | | | substitutions may have occurred due to the inherent limitations of | | | voice recognition software. Please read the chart carefully and | | | recognize, using context, where these substitutions have occurred. | | |nonsupine RDI was 7.5. | | |? Sleep disordered breathing was worsened in REM sleep with REM | | |AHI and RDI of 21.8. Non-REM AHI was 7.1 and normal REM RDI was | | |17.9.. | | |? Mean SpO2 was 93 %, daryl SpO2 was 79%, and amount of total | | |sleep time spent below SpO2 of 88% was 19.5 minutes. 4% Oxygen | | |Desaturation Index (SIERRA) was 8.2 and was mildly elevated. | | |? Snoring was mild in nonsupine position, and mild to moderate in | | |supine position. | | |? ETCO2 and TCO2 were not elevated. | | |? Claudy-Victoria breathing was not observed. | | | | | |LIMB MOVEMENTS: | | |? Total sleep periodic limb movement index was 33 and was mildly | | |to moderately increased. | | |? These limb movements were significantly associated with | | |respiratory event related arousals. | | | | | |EKG: | | |Normal sinus rhythm was noted with mean heart rate of 58, 56, 58 | | |beats per minute in wake, non-REM, and REM sleep respectively.. | | | | | |INTERPRETATION: | | | | | |- This polysomnography showed sleep apnea which was obstructive | | |in nature, and it was mild in frequency of events, and mild in | | |frequency of desaturations. Sleep apnea was worsened in supine | | |position and in stage R sleep. 55.4% Supine sleep, and 11.3% of | | |stage R sleep was captured. Daryl SpO2 was 79%, and amount of | | |total sleep time spent below SpO2 of 88% was 19.5 minutes. | | |hypoventilation was not observed. | | | | | |- Sleep efficiency was normal, and sleep was mildly fragmented. | | | | | |- Periodic limb movement index was mildly to moderately elevated, | | |and these limb movements were not significantly associated with | | |respiratory event related arousals. | | | | | |RECOMMENDATIONS: | | |1. A trial of auto-PAP at 5-15 cm H2O with a medium airfit p10 | | |mask. | | |2. Clinical correlation for excessive leg movements | | | | | | | | |Jessy Agarwal MD | | | | | |Portions of this chart may have been created with [email or web address] voice | | |recognition software. Occasional wrong-word or sound-alike | | |substitutions may have occurred due to the inherent limitations | | |of voice recognition software. Please read the chart carefully | | |and recognize, using context, where these substitutions have | | |occurred. | | | | | + + + + + | Procedure Note | + + | Jessy Agarwal MD - 03/21/2019 1:07 PM [facility] | | [facility] [place] [id number] Report on Smitha | | Flakita Pichardo performed on March 10, 2019PATIENT IDENTIFICATION:Smitha Pichardo IS a 63 | | y.o..-year-old female. with a history of coronary artery disease with ischemic | | cardiomyopathy, h/o of cardiac arrest post stenting in 2011, hyperlipidemia, tobacco | | use, depression, chronic kidney disease, presenting with snoring, witnessed apnea, | | awakening with choking, frequent awakenings at night, nocturia for evaluation of | | obstructive sleep apnea. BMI: 28Technical Information: Please see technical data which | | is attached.Definitions (The AASM Manual for the Scoring of Sleep and Associated Events, | | Version 2.5; 2018): Apnea: There is a drop in the peak signal excursion by 90% or | | greater of pre-event baseline using an oronasal thermal sensor (diagnostic study), PAP | | device flow (titration study), or an alternative apnea sensor (diagnostic study); the | | duration of the 90% or greater drop in sensor signal is 10 seconds or longer. | | Obstructive Apnea: Event associated with continued or increased inspiratory effort | | throughout the entire period of absent airflow. Central Apnea: Event associated with | | absent inspiratory effort throughout the entire period of absent airflow. Mixed Apnea: | | Event associated with absent inspiratory effort in the initial portion of the event | | followed by resumption of inspiratory effort during the second portion of the event. | | Hypopnea:Nasal pressure excursion drop by 30% or more from baseline, lasting at lease 10 | | seconds and 90% of the event's duration meets this amplitude criteria. This is | | associated with a 4% or greater desaturation from pre-baseline Respiratory Event Related | | Arousal: A sequence of breaths lasting 10 seconds or longer characterized by increasing | | respiratory effort or by flattening of the inspiratory portion of the nasal pressure | | (diagnostic study) or PAP device flow (titration study) waveform leading to arousal from | | sleep when the sequence of breaths does not meet criteria for an apnea or | | hypopnea.SLEEP STUDY HISTORY:None. REVELANT MEDICATIONS: Quetiapine, Fluoxetine, and | | lorazepam as needed.SUBJECTIVE:The patient rated sleep quality during sleep study as | | usual.Java Developer Analyst note: patient tried and tolerated medium airfit p10 mask. She may need | | a chin starp for mouth leak. SLEEP ARCHITECTURE AND EEG:? Total sleep time was 485 | | minutes. Sleep efficiency was 89.2% and was within normal limits.? Sleep onset latency | | was 14.5 minutes and was within normal limits.? REM latency was 86.5 minutes and was | | within normal limits.? Percent of time in stage N3 was 7.2% and was decreased.? Percent | | of time in stage REM was 11.3 % and was decreased.? Arousal Index for this diagnostic | | study was 19.8/hour and was mildly increased, with 13 respiratory arousals/hour and 5.3 | | spontaneous arousals/hour. RESPIRATORY:? Respiratory disturbance index (RDI) was 18.3, | | consisting of total 61 hypopneas, 4 obstructive apneas, 0 mixed apneas, and 6 central | | apneas and 77 RERAs. AHI was 8.8 and was mildly elevated.? Sleep disordered breathing | | was worsened in supine position with supine AHI of 14.5 and RDI of 27. Patient spent | | 55.4% of total sleep time in supine position. Nonsupine AHI was 1.7 and nonsupine RDI | | was 7.5. ? Sleep disordered breathing was worsened in REM sleep with REM AHI and RDI of | | 21.8. Non-REM AHI was 7.1 and normal REM RDI was 17.9.. ? Mean SpO2 was 93 %, daryl | | SpO2 was 79%, and amount of total sleep time spent below SpO2 of 88% was 19.5 minutes. | | 4% Oxygen Desaturation Index (SIERRA) was 8.2 and was mildly elevated.? Snoring was mild in | | nonsupine position, and mild to moderate in supine position.? ETCO2 and TCO2 were not | | elevated.? Claudy-Victoria breathing was not observed. LIMB MOVEMENTS:? Total sleep | | periodic limb movement index was 33 and was mildly to moderately increased. ? These limb | | movements were significantly associated with respiratory event related arousals. | | EKG:Normal sinus rhythm was noted with mean heart rate of 58, 56, 58 beats per minute in | | wake, non-REM, and REM sleep respectively.. INTERPRETATION:- This polysomnography | | showed sleep apnea which was obstructive in nature, and it was mild in frequency of | | events, and mild in frequency of desaturations. Sleep apnea was worsened in supine | | position and in stage R sleep. 55.4% Supine sleep, and 11.3% of stage R sleep was | | captured. Daryl SpO2 was 79%, and amount of total sleep time spent below SpO2 of 88% was | | 19.5 minutes. hypoventilation was not observed.- Sleep efficiency was normal, and | | sleep was mildly fragmented. - Periodic limb movement index was mildly to moderately | | elevated, and these limb movements were not significantly associated with respiratory | | event related arousals.RECOMMENDATIONS:1. A trial of auto-PAP at 5-15 cm H2O with a | | medium airfit p10 mask.2. Clinical correlation for excessive leg movementsJessy Agarwal, | | MDPortions of this chart may have been created with [email or web address] voice recognition software. | | Occasional wrong-word or | | | | sound-alike | | substitutions may have occurred due to the inherent limitations of voice recognition | | software. Please read the chart carefully and recognize, using context, where these | | substitutions have occurred. | |R sleep. 55.4% Supine sleep, and 11.3% of stage R sleep was captured. Daryl SpO2 was 79%, a nd amount of total sleep time spent below SpO2 of 88% was 19.5 minutes. hypoventilation wa s not observed. | | | |- Sleep efficiency was normal, and sleep was mildly fragmented. | | | |- Periodic limb movement index was mildly to moderately elevated, and these limb movements were not significantly associated with respiratory event related arousals. | | | |RECOMMENDATIONS: | |1. A trial of auto-PAP at 5-15 cm H2O with a medium airfit p10 mask. | |2. Clinical correlation for excessive leg movements | | | | | |Jessy Agarwal MD | | | |Portions of this chart may have been created with [email or web address] voice recognition software. Occasi onal wrong-word or sound-alike substitutions may have occurred due to the inherent meyers itations of voice recognition software. | |Please read the chart carefully and recognize, using context, where these substitutions hav e occurred. | + + documented in this encounter Visit Diagnoses + + | Diagnosis | + + | Sleep apnea, unspecified type | + + documented in this encounter"
--- OUTSIDE RECORDS SUMMARY | ~2019-09-08 | XMS | Encounter Summary ---
Demographics + + + | Address | [address] | | | [place] [address] | + + + | Home Phone [...] + | Author | [facility] | | | and Ankitana | + + + | Organization | [facility] | | | and Ankitana | + [...] Team Providers + +------+ + | Care Military Pay Technician Name | Role | Phone | + +------+ + | Kiran Oneill DO | PCP | | + +------+ + Encounter Details +--------+---------+ + + + | Date | Type | Department | Care Team | Description | +--------+---------+ + + + | 09/10/ | Surgery | [facility] | [facility], | RIGHT EXTRACTION | | 2018 | | MED CTR OR INTRA OP | MD [address] | CATARACT WITH LENS | | | | [address] | [place], [place] | IMPLANT | | | | [place], [place] | [address] | | | | | [address] | | | | | | [phone] | | | +--------+---------+ + + + [...] [address] | | | | | | [place], | | | | | | [place] [address] | | | | | | [phone] | | | | | | | [...] HOURS PRN, Pain, Starting | | | [facility] 09/10/18 at 1529, | | | Post-op/Phase II | | + +---+ | | | + +---+ | albuterol 2.5 mg/3 mL nebulizer | | | solution 2.5 mg 2.5 mg, | | | Nebulization, ONCE PRN, Wheezing, | | | Starting [facility] 09/10/18 at 1516, | | | For 1 [...] HR < 40, | | | Starting [facility] 09/10/18 at 1516, For | | | [...] | | Site | | PRN, Starting [facility] 09/10/18 at | | PM PST | [...] glucose < 50, | | | Starting [facility] 09/10/18 at 1244, | | | Repeat [...] | | | First dose on [facility] 09/10/18 at | | | | | [...] Intravenous, PRN, Shivering, | | | Starting [facility] 09/10/18 at 1516, For | | | 2 doses, May Repeat once in 5 | | | min., Recovery/Phase I | | + +---+ | | | + +---+ | midazolam (VERSED) 1 mg/mL | | | injection 0.5-2 mg 0.5-2 mg, | | | Intravenous, EVERY 5 MIN PRN, | | | Anxiety, or agitation, Starting | | | [facility] 09/10/18 at [...] | | | t | | Starting [facility] 09/10/18 at 1451, | | PM PST | | | | | Intra-op | | | | | | + +-------+ +--------+---+ + + +---+ | | | + +---+ | ondansetron (ZOFRAN) injection | | | 4 mg 4 mg, Intravenous, ONCE | | | PRN, Nausea, Starting [facility] 09/10/18 | | | at 1516, For [...] | | | | | | Starting [facility] 09/10/18 at 1244, For | | | [...] | | | | | | [facility] 09/10/18 at 1244, For 3 | | [...] | | Site | | PRN, Starting [facility] 09/10/18 at | | PM PST | [...] | | | | | | [facility] 09/10/18 at 1244, For 3 | | [...]
--- OUTSIDE RECORDS SUMMARY | ~2019-09-08 | XMS | Encounter Summary ---
Demographics + + + | Address | [address] | | | [place] [address] | + + + | Home Phone | | + + + | Preferred Language | Unknown | + + + | Marital Status | | + + + | Sabianist Affiliation | 1041 | + + + | Race | Unknown | + + + | Ethnic Group | Unknown | + + + Author + + + | Author | and [facility] | | | and Ankitana | + + + | Organization | and [facility] | | | and [...] Team Providers + +------+ + | Care Service Tech/Welder Name | Role | Phone | + [...] | | | | | [address] | [address] [place], [place] | | | | | [place], [place] | [address] | | | | | [address] | [phone] | | | | | [phone] | | | +--------+ + + + [...] Fede Buenrostro RN | | IV | [id number] catheter system; | | | | | [...] [place], | | | | | | [place] [address] | | | | | | [phone] | | | | | | | [...] 12:06 PM PST Anesthesia Airway | | Hibcutvpg13/8/2018 11:58Preprocedure check: patient identified, oxygen, airway assessed, [...] PRN, Starting [facility] 08/13/18 at | | AM [...] | | | | | Vomiting, Starting [facility] 08/13/18 at | | AM PST | [...]
--- OUTSIDE RECORDS SUMMARY | ~2019-09-08 | XMS | Encounter Summary ---
Demographics + + + | Address | [address] | | | [place] [address] | + + + | Home Phone | | + + + | Preferred Language | Unknown | + + + | Marital Status | | + + + | Methodist Affiliation | 1041 | + + + | Race | Unknown | + + + | Ethnic Group | Unknown | + + + Author + + + | Author | [facility] | | | and Ankitana | + + + | Organization | [facility] | | [...] Team Providers + +------+ + | Care Epic Trainer Name | Role | Phone | [...] pelvis | | | | [address] [place], | [place] | without disruption | | | | [place] [address] | [place] [address] | of pelvic ring with | | | | [phone] | [phone] | routine healing | | | | [...] | | | | | | [place] [address] | | | | | | [phone] | | | | | | | [...]
--- OUTSIDE RECORDS SUMMARY | ~2019-09-08 | XMS | Encounter Summary ---
Demographics + + + | Address | [address] | | | [place] [address] | + + + | Home Phone | | + + + | Preferred Language | Unknown | + + + | Marital Status | | + + + | Anglican Affiliation | 1041 | + + + | Race | Unknown | + + + | Ethnic Group | Unknown | + + + Author + + + | Author | [facility] | | | and Ankitana | + + + | Organization | [facility] | [...] Team Providers + +------+ + | Care Diamond Cleaner Name | Role | Phone | + [...] [address] | | | | [place] [address] | [facility] | | | | | [facility] | [place] [address] | | | | | [place] | [phone] | | | | | [address] | | | | | | [phone] | | | +--------+ + + + [...] [address] | | | | | | [place], | | | | | | [place] [address] | | | | | | [phone] | | | | | | | [...] + + + | Exam Performed Location: [facility] | MISCELANIOUS | | RIGHT UPPER [...] 07/31/2013 10:22 AM PDT Exam Performed Location: [facility] | | at [facility] UPPER EXTREMITY VENOUS EXAM FOR DVTCLINICAL [...] phoned | | [facility].The radiologist/surgeon | | [...] + | MISCELLANEOUS LAB | | | [phone] | + +---------+ + + | MISCELANIOUS LAB | | | [phone] | + +---------+ + + Historical Imaging Result (09/14/2008 10:41 AM PST) + + | Specimen | + + | | + + + + + | Narrative | Performed At | + + + | Exam Performed Location: [facility] | MISCELANIOUS | | RIGHT UPPER [...] 07/31/2013 10:19 AM PDT Exam Performed Location: [facility] | | at [facility] UPPER EXTREMITY ARTERIALCLINICAL INFORMATION:The patient | [...] + | MISCELLANEOUS LAB | | | [phone] | + +---------+ + + | MISCELANIOUS LAB | | | [phone] | + +---------+ + + documented in this encounter Visit Diagnoses Not on filedocumented in this encounter"
--- OUTSIDE RECORDS SUMMARY | ~2019-09-08 | XMS | Encounter Summary ---
Demographics + + + | Address | [address] | | | [place] [address] | + + + | Home Phone | | + + + | Preferred Language | Unknown | + + + | Marital Status | | + + + | Anglican Affiliation | 1041 | + + + | Race | Unknown | + + + | Ethnic Group | Unknown | + + + Author + + + | Author | [facility] | | | and Ankitana | + + + | Organization | [facility] | | [...] Team Providers + +------+ + | Care Teletype Installer Name | Role | Phone | + +------+ + | Yolanda Lee | PCP | | + +------+ + Encounter Details +--------+ + + + + | Date | Type | Department | Care Team | Description | +--------+ + + + + | 03/09/ | Hospital | [facility] | Jesse Siddiqi MD | Cellulitis and | | 2015 | Encounter | [facility] | [address], | abscess of hand, | | | | INFUSION [address] | [address] floor [place], | except fingers and | | | | Ave [place], [place] | [place] [address] | thumb; Bacteremia | | | | [address] | [phone] | due to Streptococcus | | | | [phone] | | / Sepsis | +--------+ + [...] | | | | | | [place] [address] | | | | | | [phone] | | | | | | | [...]
--- OUTSIDE RECORDS SUMMARY | ~2019-09-08 | XMS | Encounter Summary ---
Demographics + + + | Address | [address] | | | [place] [address] | + + + | Home Phone | | + + + | Preferred Language | Unknown | + + + | Marital Status | | + + + | Bahai Affiliation | 1041 | + + + | Race | Unknown | + + + | Ethnic Group | Unknown | + + + Author + + + | Author | [facility] | | | and Ankitana | + + + | Organization | [facility] | | | and [...] Team Providers + +------+ + | Care Personnel Administrator Name | Role | Phone | + +------+ + | Kiran Oneill DO | PCP | | + +------+ + Encounter Details +--------+ + + + + | Date | Type | Department | Care Team | Description | +--------+ + + + + | 12/26/ | Abstract | [facility] | Provider, | Cardiac arrest with | | 2018 | | CARDIOLOGY [address] | [address] | ventricular | | | | [place], | [address] | fibrillation (HCC) | | | | [place] [address] | [place] [address] | | | | | [phone] | | | +--------+ + + + [...] [place], | | | | | | [place] [address] | | | | | | [phone] | | | | | | | | +--------+---------+ + + + documented as of this encounter Visit Diagnoses + + | Diagnosis | + + | Cardiac arrest with ventricular fibrillation (HCC) | + + documented in this encounter"
--- OUTSIDE RECORDS SUMMARY | ~2019-09-08 | XMS | Encounter Summary ---
Demographics + + + | Address | [address] | | | [place] [address] | + + + | Home Phone | | + + + | Preferred Language | Unknown | + + + | Marital Status | | + + + | Mosque Affiliation | 1041 | + + + | Race | Unknown | + + + | Ethnic Group | Unknown | + + + Author + + + | Author | [facility] | | | and Ankitana | + + + | Organization | [facility] | [...] Team Providers + +------+ + | Care Child Psychology Teacher Name | Role | Phone | [...] [address] | | | | | [place] [address] | [place] [address] | | | | | [place] | [phone] | | | | | [place] | | | | | | [address] | | | | | | [phone] | | | +--------+ + + + [...] | | | | | | [place] [address] | | | | | | [phone] | | | | | | | | +--------+---------+ + + + documented as of this encounter Visit Diagnoses Not on filedocumented in this encounter"
--- OUTSIDE RECORDS SUMMARY | ~2019-09-08 | XMS | Encounter Summary ---
Demographics + + + | Address | [address] | | | [place] [address] | + + + | Home Phone [...] | Author | [facility] | | | and Ankitana | + + + | Organization | [facility] | | | and [...] Providers + +------+ + | Care Route Salesperson Name | Role | Phone | + +------+ + | [facility] | PCP | | + +------+ + [...] | | | | | Cardiomyopat | [place] | [address] | | | | | hy (HCC) | [address] | | | | | Procedures | [address] | [place], [place] | | | | | ECHO | [place], | [address] | | | | | Complete | [place] | Phone: | | | | | | [address] | [phone] | | | | | | | Fax: | | | | | | | [phone] | +--------+--------+ + + + + Reason [...] [address] | | | | | [place] | [address] | [place], | | | | | coronary | [address] | [place] [address] | | | | | artery | [place] | | | | | | 06/18/2013 fm | [address] | | | | | | per SKL dx | | | | | | | of 414.01 | | | | | | | Coronary | | | | | | | atherosclero | | | | | | | sis [place] | | | | | | | [...] | | 2013 | Visit | CARDIOLOGY [facility] | [address] | disease (Primary | | | | HI4 [address] | [address] | Dx); Cardiomyopathy | | | | [address] [place], [place] | [place] | ([facility]); Ischemic | | | | [address] | [address] | cardiomyopathy; | | | | [phone] | | Hypertension; | | | | [...] medications. I will repeat another echo to [facility] her LVEF for further improvement. PATIENT NAME: Anne Marie Pichardo : 1955: AGE: 58 y.o. PRIMARY CARE: [facility] CHIEF COMPLAINT: Chief Complaint Patient presents with [...] medications. I will repeat another echo to [facility] her LVEF for further improvement. FOLLOWUP No [...] 1 tablet under the tongue every 5 [place] as needed. Arlyn repeat x 3 [...] MD, FACC 01/13/2014, 15:08 [facility] Plan of Treatment +--------+---------+ + + + | Date | Type | Specialty | Care Team | Description | +--------+---------+ + + + | 10/28/ | Office | Cardiology | Carol, | | | 2020 | Visit | | SALVATORE Moreno [address] | | | | | | [place], | | | | | | [place] [address] | | | | | | [phone] | | | | | | | [...] MARIE PICHARDO | | | Date: 01/13/2014MRN: [id number] Patient Location: [place] | | | [facility] 1955 Age: 58 yrs | | | Gender: FemaleHeight: 68 in | | | Weight: 156 lb BSA: 1.8 meters2 | | | HR: 64 | | | Rhythm: SinusHistory: Coronary artery disease with prior | | | infarction and cardiac arrest,prior echo 05/2013 shows inferior ID, | | | EF= 40% Reason For [...] Yolanda | | | Zoila Leehocardiographer: Edson [id number]: | | |Great Vessels: | | |The [...] | |Referring Physician: SALVATORE Maldonado | | |Principal Strategist: Edson Jimenez | | |[id number]: | | | | | + + -+ + + | Procedure Note | + + | Tim, Rad Results In - 01/14/2014 8:09 AM PDT | | Adult | | Echo | | Report | | | | Name: ANNE MARIE PICHARDO Date: 01/13/2014 | | Patient [facility]: [facility] | | : 1955 Age: 58 yrs Gender: Female | | Height: 68 in Weight: 156 lb BSA: 1.8 meters2 | | HR: 64 Rhythm: Sinus | | History: Coronary artery disease with prior infarction and cardiac arrest, | | prior echo 05/2013 shows inferior ID, EF= 40% | | | | Reason [...] | Referring Physician: SALVATORE Maldonado | | Principal Strategist: Edson Jimenez | | [id number]: | + + + + | Transcriptions | + + | Omi White - 01/14/2014 12:00 AM PDT | + + + +---------+ + + | Performing | Address | City/State/Zipcode | Phone Number | | Organization | | | | + +---------+ + + | MISCELLANEOUS LAB | | | [phone] | + +---------+ + + | MISCELANIOUS LAB | | | [phone] | + +---------+ + + documented in this encounter Visit Diagnoses + + | Diagnosis | + + | Coronary artery disease - Primary Coronary atherosclerosis of unspecified type of | | vessel, [place] or graft | + + | Cardiomyopathy (HCC) Other primary cardiomyopathies | + + | Ischemic cardiomyopathy Other specified forms of chronic ischemic heart disease | + + | Hypertension Unspecified essential hypertension | + + | Dyslipidemia Other and unspecified hyperlipidemia | + + documented in this encounter
--- OUTSIDE RECORDS SUMMARY | ~2019-09-08 | XMS | Encounter Summary ---
Demographics + + + | Address | [address] | | | [place] [address] | + + + | Home Phone [...] Author | [facility] | | | and Ankitana | + + + | Organization | [facility] [...] Team Providers + +------+ + | Care Speech Lang Path Therapist Name | Role | Phone | + [...] | | | | | [address] | [address] [place], [place] | | | | | [place], [place] | [address] | | | | | [address] | [phone] | | | | | [phone] | | | +--------+ + + + [...] Fede Buenrostro RN | | IV | ycwb-jbz-orcpqd catheter system; | | | | | [...] [place], | | | | | | [place] [address] | | | | | | [phone] | | | | | | | [...] 12:06 PM PST Anesthesia Airway | | Yikfdatqd05/8/2018 11:58Preprocedure check: patient identified, oxygen, airway assessed, [...] | | | | | Vomiting, Starting [facility] 08/13/18 at | | AM PST [...]
--- OUTSIDE RECORDS SUMMARY | ~2019-09-08 | XMS | Encounter Summary ---
Demographics + + + | Address | [address] | | | [place] [address] | + + + | Home Phone | | + + + | Preferred Language | Unknown | + + + | Marital Status | | + + + | Advent Affiliation | 1041 | + + + | Race | Unknown | + + + | Ethnic Group | Unknown | + + + Author + + + | Author | [facility] | | | and Ankitana | + + + | Organization | [facility] | | | and Ankitana [...] Team Providers + +------+ + | Care Prepared Foods Associate Name | Role | Phone | + [...] | apnea, | [address] | [place] | | | | | unspecified | [address] [place] | [place], | | | | | type | [place], [place] | [place] [address] | | | | | Procedures | [address] | Phone: | | | | | [place] POLYSOM | Phone: | [phone] | | | | | 6/>YRS SLEEP | [phone] | Fax: | | | | | 4/> ADDL | Fax: | [phone] | | | | | SAJAN ATTND | [phone] | | | | | | [place] POLYSOM | | | | | | [...] | | | | | apnea) | [place] | [place] | | | | | | [place], | [address] Phone: | | | | | | [place] | [phone] | | | | | | [address] | Fax: | | | | | | Phone: | [phone] | | | | | | [phone] | | | | | | | Fax: | | | | | | | [phone] | | +--------+ + + + + + Encounter Details +--------+---------+ + + + | Date | Type | Department | Care Team | Description | +--------+---------+ + + + | 12/01/ | Office | [facility] | Jessy Agarwal MD | Sleep apnea, | | 2018 | Visit | SLEEP DISORDER [address] | [address] | unspecified type | | | | [address] [place] | [place] | (Primary Dx) | | | | [place] [address] | [address] | | | | | [phone] | | | +--------+---------+ + + + [...] and wake time. They usually watch some [employer] s eries. She usually goes to bed [...] marijuana(Indica) to help with her sleep. ? [place] Sleepiness Scale: 2 out of 24 ( [...] HISTORY Past Medical History: Diagnosis Date Acute [place] ([facility]) 2011 Anxiety Back pain Bipolar disorder (HCC) Community acquired pneumonia secondary to Haemophilus influenzae Coronary artery disease Depression Dyslipidemia Hepatitis C Heroin abuse ([facility]) Last use was 2011 Hip pain HTN (hypertension) Insomnia Ischemic cardiomyopathy Methamphetamine use ([facility]) 06/07/2018 She denies use and [...] Cor Angio; Surgeon: Shad Schuler MD; Location: [facility] CV LAB CARDIAC CATHERIZATION Right 06/09/2018 Procedure: CV LHC; Surgeon: Shad Schuler MD; Location: [facility] CV LAB CARDIAC CATHERIZATION Right 06/09/2018 Procedure: CV LV; Surgeon: Shad Schuler MD; Location: [facility] CV LAB CATARACT REMOVAL Left 08/13/2018 Procedure: LEFT EXTRACTION CATARACT WITH LENS IMPLANT; Surgeon: Seamus Richard MD; Loc ation: [facility] MAIN OR CATARACT REMOVAL Right 09/10/2018 Procedure: RIGHT EXTRACTION CATARACT WITH LENS IMPLANT; Surgeon: Seamus Richard MD; Lo cation: [facility] MAIN OR CORONARY ANGIOPLASTY WITH STENT PLACEMENT 05/11/2012 Percutaneous transluminal coronary angioplasty and stenting of the left circumflex with th rombectomy of the left circumflex CORONARY ARTERY BYPASS GRAFT N/A 06/11/2018 Procedure: CORONARY ARTERY BYPASS GRAFT X3 EVH JU; Surgeon: Hemanth Webster MD; Loc ation: [facility] MAIN OR HYSTERECTOMY 1995 ALLERGIES No Known [...] problems. discussed diagno sis via polysomnography / tju-lj-jglapp sleep testing. she has been a smoker [...] this chart may have been created with [employer] voice recognition software. Occasi onal wrong-word or [...] Insomnia Severity Index Insomnia Severity Index 22 [place] Sleepiness Scale 1. Sitting and reading 0 [...] W | | | | | | [place], | | | | | | [place] [address] | | | | | | [phone] | | | | | | | | +--------+---------+ + + + + + +--------+ + + | Name | Type | Priori | Associated Diagnoses | Order Schedule | | | | ty | | | + + +--------+ + + | * [facility] - | Outpatient | Routin [...]
--- OUTSIDE RECORDS SUMMARY | ~2019-09-08 | XMS | Encounter Summary ---
Demographics + + + | Address | [address] | | | [place] [address] | + + + | Home Phone [...] + | Author | [facility] | | | and Ankitana | + + + | Organization | [facility] | | | and [...] Team Providers + +------+ + | Care Lead Front End Developer Name | Role | Phone | [...] | [address] | [place] [address] | | | | | [place], [place] | [phone] | | | | | [address] | | | | | | [phone] | | | +--------+ + + + [...] | | | | | | [place] [address] | | | | | | [phone] | | | | | | | | +--------+---------+ + + + documented as of this encounter Visit Diagnoses Not on filedocumented in this encounter"
--- OUTSIDE RECORDS SUMMARY | ~2019-09-08 | XMS | Encounter Summary ---
Demographics + + + | Address | [address] | | | [place] [address] | + + + | Home Phone [...] + | Author | [facility] | | | and Ankitana | + + + | Organization | [facility] | | | and Ankitana [...] Team Providers + +------+ + | Care Database Management System Specialist Name | Role | Phone | [...] [address] | | | | | [place] [address] | [address] [place] | | | 08/20/ | | [address] | [address] [place] | | | [address] | | [place] | [address] | | | | | [address] | | | | | | [phone] | | | +--------+ + + + [...] | | | | | | [place] [address] | | | | | | [phone] | | | | | | | | +--------+---------+ + + + documented as of this encounter Visit Diagnoses Not on filedocumented in this encounter"
--- OUTSIDE RECORDS SUMMARY | ~2019-09-08 | XMS | Encounter Summary ---
Demographics + + + | Address | [address] | | | [place] [address] | + + + | Home Phone [...] + + | Author | [facility] | | | and Ankitana | + + + | Organization | [facility] | | | and Ankitana [...] Providers + +------+ + | Care Dry Man Name | Role | Phone | + +------+ + | Yolanda Lee | PCP | | + +------+ + Reason for Visit + + + | Reason | Comments | + + + | Abdominal Pain | | + + + Encounter Details +--------+ + + + + | Date | Type | Department | Care Team | Description | +--------+ + + + + | 05/03/ | Emergency | [facility] | Ignacio Vaca DO | Abdominal pain, | | 2017 | | [facility] | [address] [facility] | unspecified location | | | | [address] | [place] [address] | (Primary Dx); | | | | [facility] | [phone] | Nausea and vomiting, | | | | [place], [place] | | intractability of | | | | [address] | | vomiting not | | | | [phone] | | specified, | | | | | | unspecified vomiting | | | | | | type; | | | | | | Methamphetamine | | | | | | abuse | +--------+ + + + + [...] + + + | Blood Pressure | 190/115 | 05/03/2017 7:15 PM | | | | | PDT | | + + + + + | Pulse | 89 | 05/03/2017 7:15 PM | | | | | PDT | | + + + + + | Temperature | 37.2 C (98.9 F) | 05/03/2017 1:23 PM | | | | | PDT | | + + + + + | Respiratory Rate | 18 | 05/03/2017 7:15 PM | | | | | PDT | | + + + + + | Oxygen Saturation | 99% | 05/03/2017 7:15 PM | | | | | PDT | | + + + + + | Inhaled Oxygen | - | - | | | Concentration | | | | + + + + + | Weight | 63.5 kg (140 lb) | 05/03/2017 1:23 PM | | | | | PDT | | + + + + + | Height | 172.7 cm (5' 8") | 05/03/2017 1:23 PM | | | | | PDT | | + + + + + | Body Mass Index | 21.29 | 05/03/2017 1:23 PM | | | | | PDT [...] as of this encounter Discharge Instructions Instructions Ignacio Vaca, - 05/03/2017If your symptoms dramatically change or worsen, y ou develop persistent vomiting, fever, vomiting blood, black tarry stools or bloody stools o r any other concern return to the ER. Your recurrent abdominal pain and vomiting could be caused from a condition called cannabis hyperemesis syndrome. The only treatment is to stop smoking marijuana. Your blood pressure was extremely elevated in the emergency department today. It is impera tive that you see your family doctor on Friday for follow-up. It is very likely that this w as caused from your methamphetamine use. Stopped using methamphetamine and any other illici t drug. Seek treatment through your family doctor. Follow-up closely with your family doctor AttachmentsThe following attachments cannot be sent through Care Everywhere.Abdominal Pain, Adult (Greek)Methamphetamine Abuse and Addiction, Understanding (Greek)Vomiting (Adult) (Greek)documented in this encounter Medications at Time of [...] [place], | | | | | | [place] [address] | | | | | | [phone] | | | | | | | | +--------+---------+ + + + + +------+--------+ + + | Name | Type | Priori | Associated Diagnoses | Date/Time | | | | ty | | | + +------+--------+ + + | ED INFORMATION | BEATRICE | Routin | | 05/03/2017 1:24 PM | | EXCHANGE | | e | | PDT | + +------+--------+ + + documented as of this encounter Procedures + +--------+ + + + | Procedure Name | Priori | Date/Time | Associated Diagnosis | Comments | | | ty | | | | + +--------+ + + + | DRUGS OF ABUSE, | STAT | 05/03/2017 | | Results for this | | SCREEN, URINE | | 6:06 PM | | procedure are in the | | | | PDT | | results section. | + +--------+ + + + | URINALYSIS WITH | STAT | 05/03/2017 | | Results for this | | MICROSCOPIC | | 6:06 PM | | procedure are in the | | | | PDT | | results section. | + +--------+ + + + | CT ABDOMEN PELVIS W | STAT | 05/03/2017 | | Results for this | | CONTRAST | | 4:10 PM | | procedure are in the | | | | PDT | | results section. | + +--------+ + + + | EXTRA HOLD TUBE(S) | Routin | 05/03/2017 | | Results for this | | | e | 2:30 PM | | procedure are in the | | | | PDT | | results section. | + +--------+ + + + | CBC WITH | STAT | 05/03/2017 | | Results for this | | DIFFERENTIAL | | 2:30 PM | | procedure are in the | | | | PDT | | results section. | + +--------+ + + + | LIPASE | STAT | 05/03/2017 | | Results for this | | | | 2:30 PM | | procedure are in the | | | | PDT | | results section. | + +--------+ + + + | COMPREHENSIVE | STAT | 05/03/2017 | | Results for this | | METABOLIC PANEL | | 2:30 PM | | procedure are in the | | | | PDT | | results section. | + +--------+ + + + | ED INFORMATION | Routin | 05/03/2017 | | | | EXCHANGE | e | 1:24 PM | | | | | | PDT | | | + +--------+ + + + +---+--------+ | | | | | Proced | | | ure | | | Note - | | | Cooper, | | | Lab In | | | | | | Hlseve | | | n - | | | 05/03/ | | | 2016 | | | 1:25 | | | PM PDT | | | | | | Format | | | ting | | | of | | | this | | | note | | | might | | | be | | | differ | | | ent | | | from | | | the | | | origin | | | al.COOPER | | | E?NOTI | | | FICATI | | | ON?/ | | | | | | 7 | | | 13:20? | | | YOUNG, | | | | | | MELIND | | | A | | | E?MRN: | | | | | | [id number] | | | [id number] | | | his | | | patien | | | t has | | | regist | | | ered | | | at the | | | | | | [facility] | | | ence | | | [facility] | | | al | | | Emerge | | | ncy | | | Depart | | | ment | | | For | | | more | | | inform | | | ation | | | visit: | | | | | | https: | | | //prov | | | .ediec | | | arepla | | | n.com/ | | | patien | | | [id number] | | | [id number] | | | [email or web address] | | | [id number] | | | [id number] | | | [id number] | | | a0 ED | | | Care | | | Guidel | | | malorie | | | from | | | Prov[facility] | | | ence | | | [facility] | | | alLast | | | | | | Update | | | d: | | | 6/1/15 | | | 12:00 | | | AM | | | Care | | | Recomm | | | endati | | | on:Car | | | e at | | | [facility] | | | e | | | [place] | | | | | | [facility] | | | Past | | | Medica | | | l and | | | Surgic | | | al | | | Histor | | | y:?Anx | | | iety, | | | hypert | | | ension | | | , | | | divert | | | iculos | | | is, | | | myocar | | | dial | | | infarc | | | tion | | | 2011, | | | shanks | | | ry | | | artery | | | | | | stenti | | | ng, | | | dental | | | milagro.?? | | | Histor | | | y of | | | drug | | | and | | | alcool | | | | | | abuse. | | | Right | | | arm | | | absces | | | s. | | | Hyster | | | ectomy | | | .? | | | ? | | | ?? | | | Medica | | | tions: | | | | | | Seroqu | | | el, | | | Lisino | | | pril, | | | Prozac | | | , | | | Hydrox | | | yzine, | | | | | | Carved | | | ilol, | | | Aspiri | | | n, | | | Clopid | | | ogrel, | | | | | | Atorva | | | statin | | | , | | | Nitros | | | tat.So | | | cial | | | Histor | | | y:Alco | | | hol, | | | Tobacc | | | o and | | | mariju | | | noemí | | | use.? | | | Past | | | h/o | | | heroin | | | use.? | | | | | | [place] | | | d, | | | disabl | | | ed, | | | person | | | to | | | notify | | | Karma | | | Anthony, | | | | | | daught | | | erThes | | | e are | | | guidel | | | malorie | | | and | | | the | | | provid | | | er | | | should | | | | | | exerci | | | se | | | clinic | | | al | | | judgme | | | nt | | | when | | | provid | | | ing | | | care.A | | | dditio | | | nal | | | plans | | | are | | | also | | | availa | | | ble | | | online | | | from | | | the | | | follow | | | ing | | | facili | | | ties: | | | [facility] | | | ess | | | Medica | | | l | | | Center | | | | | | Recent | | | | | | Emerge | | | ncy | | | Depart | | | ment | | | Visit | | | Summar | | | yAdmit | | | Date | | | Facili | | | ty | | | City | | | State | | | Type | | | Major | | | Type | | | Diagno | | | ses or | | | Chief | | | | | | Compla | | | int | | | Chris | | | 29, | | | 2017 | | | [facility] | | | ence | | | [facility] | | | [facility] | | | [place] | | | [place] | | | [place] | | | Emerge | | | ncy | | | Emerge | | | ncy | | | Abd | | | Pain | | | E.D. | | | Visit | | | Count | | | (12 | | | mo.)Fa | | | cility | | | | | | Visits | | | Low | | | Acuity | | | | | | [facility] | | | ess | | | Medica | | | l | | | Center | | | 1 0 | | | Provid | | | ence | | | [facility] | | | [facility] | | | | | | Medica | | | l | | | Center | | | 3 0 | | | Provid | | | ence | | | [facility] | | | [facility] | | | | | | Hospit | | | al 1 0 | | | Total | | | 5 0 | | | Note: | | | Visits | | | | | | indica | | | te | | | total | | | known | | | visits | | | . | | | Medica | | | id Low | | | | | | Acuity | | | Dx | | | are | | | the | | | number | | | of | | | primar | | | y | | | diagno | | | ses on | | | the | | | Medica | | | id's | | | Low | | | Acuity | | | dx | | | list. | | | | | | Recent | | | | | | Inpati | | | ent | | | Visit | | | Summar | | | yNo | | | record | | | ed | | | inpati | | | ent | | | visits | | | . | | | Washin | | | gton | | | PDMP | | | Report | | | Rx | | | Detail | | | s (6 | | | Mo.)Fi | | | ll | | | Date | | | Drug | | | Descri | | | ption | | | Qty. | | | Prescr | | | iber | | | CS MED | | | | | | 2017-0 | | | 7-21 | | | TRAMAD | | | OL HCL | | | 50 MG | | | | | | TABLET | | | 30 | | | VINETT | | | A | | | MACPHE | | | RSON 4 | | | 18.75 | | | | | | 2017-0 | | | 4-05 | | | TRAMAD | | | OL HCL | | | 50 MG | | | | | | TABLET | | | 30 | | | VINETT | | | A | | | MACPHE | | | RSON 4 | | | 18.75 | | | Rx | | | Summar | | | y (12 | | | Mo.)Me | | | tric | | | Count | | | CS | | | II-V | | | Rx 5 | | | CS-II | | | Rx 1 | | | Quanti | | | ty | | | Dispen | | | sed | | | 320 | | | Unique | | | | | | Prescr | | | ibers | | | 4 | | | Unique | | | | | | Pharma | | | cies 3 | | | | | | Benzos | | | 0 | | | Opioid | | | s 5 | | | Long | | | Acting | | | | | | Opioid | | | s 0 | | | Care | | | Provid | | | ersPro | | | vider | | | PRC | | | Type | | | Phone | | | Fax | | | Servic | | | e | | | Dates | | | EMMONAK | | | | | | PROJEC | | | T | | | Primar | | | y Care | | | (509) | | | | | | [phone] | | | 02 | | | (509) | | | [phone] | | | 55 | | | Curren | | | t | | | Care | | | Histor | | | yMedic | | | al/Maxine | | | [email or web address] | | | 1/9/16 | | | 12:00 | | | AM | | | [facility] | | | ess | | | Medica | | | l | | | Center | | | Pt | | | admitt | | | ed to | | | [facility] | | | ess | | | Hospit | | | al | | | with a | | | | | | pelvic | | | | | | fractu | | | re | | | follow | | | ing an | | | | | | accide | | | ntal | | | fall.? | | | Pt is | | | | | | curren | | | tly | | | homele | | | ss due | | | to DV | | | | | | allega | | | tions | | | agains | | | t the | | | boyfri | | | end | | | she | | | has | | | been | | | living | | | | | | with.1 | | | 11/26/ | | | 5 | | | 12:00 | | | AM | | | [facility] | | | ess | | | Medica | | | l | | | Center | | | Rola | | | us | | | visits | | | r/t | | | hand | | | and | | | wrist | | | cellul | | | itis | | | and | | | infect | | | ion.Hx | | | of | | | hypert | | | ension | | | , | | | eczema | | | ; | | | hyster | | | ectomy | | | , [place] | | | with | | | cardia | | | c | | | stent | | | in | | | 2012.S | | | ubstan | | | ce | | | Abuse/ | | | Overdo | | | se12/[id number] | | | 1/15 | | | 12:00 | | | AM | | | [facility] | | | ess | | | Medica | | | l | | | Center | | | Noted | | | hx of | | | IV | | | drug | | | use - | | | denies | | | any | | | recent | | | use | | | as of | | | Decemb | | | er | | | 2015.I | | | nfecti | | | on/Chr | | | onic12 | | | /21/15 | | | 12:00 | | | AM | | | [facility] | | | ess | | | Medica | | | l | | | Center | | | Histor | | | y of | | | MRSA. | | | Most | | | recent | | | | | | positi | | | ve | | | cultur | | | e of | | | hand | | | absces | | | s | | | 12/15/ | | | 15.Cri | | | teria | | | met | | | Care | | | Guidel | | | malorie | | | Medica | | | id 5 | | | in 12 | | | | | | PDMPKn | | | own | | | Aliase | | | sNo | | | known | | | aliase | | | s. The | | | above | | | | | | inform | | | ation | | | is | | | provid | | | ed for | | | the | | | sole | | | purpos | | | e of | | | patien | | | t | | | treatm | | | ent. | | | Use of | | | this | | | inform | | | ation | | | beyond | | | the | | | terms | | | of | | | Data | | | Sharin | | | g | | | Memora | | | ndum | | | of | | | Unders | | | tandin | | | g and | | | Licens | | | e | | | Agreem | | | ent is | | | | | | prohib | | | ited. | | | In | | | certai | | | n | | | cases | | | not | | | all | | | visits | | | may | | | be | | | repres | | | ented. | | | | | | Consul | | | t the | | | aforem | | | ention | | | ed | | | facili | | | ties | | | for | | | additi | | | onal | | | inform | | | ation. | | | ? | | | 2017 | | | Collec | | | tive | | | Medica | | | l | | | [employer] | | | logies | | | , [employer] | | | - | | | [place] | | | [place] | | | [place], | | | [place] - | | | info@c | | | ollect | | | ivemed | | | icalte | | | ch.[email or web address] | | | | +---+--------+ documented in this encounter Results Drugs of Abuse, Screen, Urine (05/03/2017 6:06 PM PDT) + + + + + [...] + + + + | Buprenorphi | NegativeComment: This | Negative | [facility] | | | ne Screen, | entire battery is for | | [facility] | | | Urine | screening purposes only. | | [facility] [...] Specimen | + + | Urine - Urine | | specimen (specimen) | + + + + + + + | Performing | Address | City/State/Zipcode | Phone Number | | Organization | | | | + + + + + | [facility] | [address] [facility] | [place] [address] | | | [facility] | | | | | LABORATORY | | | | + + + + + Urinalysis With Microscopic (05/03/2017 6:06 PM PDT) + + + + + + | Component | Value | Ref Range | Performed | Pathologist | | | | | At | Signature | + + + + + + | Color | Colorless | | [facility] | | | | | | [facility] [...] + + + + | Specific | 1.016 | 1.001 - 1.030 | [facility] | | | [place] | | | [facility] | | [...] + + + + | SQUAMOUS | Not clinically | /lpf | [facility] | | | EPITHELIAL | significant. | | [facility] | | | [facility] | | [facility] | | | | | | LABORATORY | | + + + + + + + + | Specimen | + + | Urine - Urine | | specimen (specimen) | + + + + + + + | Performing | Address | City/State/Zipcode | Phone Number | | Organization | | | | + + + + + | [facility] | [address] | [place] [address] | | | [facility] | | | | | LABORATORY | | | | + + + + + CT Abdomen Pelvis w Contrast (05/03/2017 4:10 PM PDT) + + | Specimen | + + | | + + + + + | Narrative | Performed At | + + + | CT ABDOMEN AND PELVIS WITH CONTRAST CLINICAL INFORMATION: | [facility] | | Abdominal pain with nausea and vomiting. COMPARISON: XR PELVIS 1 | | | OR 2 VW dated 08/25/2016; PELVIS ONE OR TWO VIEWS dated 09/27/2013 | | | PROCEDURE: Axial images through the abdomen and pelvis after the | | | administration of 100 mL Isovue 370 intravenous contrast. Multiplanar | | | reconstructions. At least one of the following CT dose | | | optimization techniques were used: Automated exposure control; | | | Adjustment of mA and/or kV according to patient size; Use of | | | iterative reconstruction technique. FINDINGS: LUNG BASES: No | | | significant pulmonary abnormality. No pleural effusion or | | | pneumothorax. ABDOMEN Liver and Biliary: No gallbladder or | | | biliary abnormality. No significant liver abnormality. Pancreas, | | | Spleen and Adrenals: No pancreatitis or pancreatic mass. No | | | splenomegaly, splenic mass or splenic hemorrhage. No significant | | | adrenal abnormality. Kidneys: No hydronephrosis, calculus or solid | | | renal mass. ABDOMEN AND PELVIS Bowel: No small bowel or colonic | | | dilation or adjacent inflammation. No appendiceal dilation or | | | inflammation. Vessels: Atherosclerotic disease present in the | | | abdominal aorta without aneurysm. Atherosclerotic disease present | | | also at the mid superior mesenteric artery. No significant | | | abnormality in the portal veins, mesenteric veins or systemic veins. | | | Lymph Nodes: No adenopathy. Peritoneum and Retroperitoneum: No | | | ascites or free air. No significant retroperitoneal abnormality. | | | PELVIS Genitourinary: Prior hysterectomy. No adnexal mass. No | | | free fluid in the pelvis. BODY WALL Soft Tissues: No bowel or | | | inflamed fat containing hernia, mass or hemorrhage. Bones: Advanced | | | degenerative changes in the bilateral hips. Chronic, healed left | | | pubic ramus fracture superiorly and inferiorly. Healed anterior | | | left 6th through 9th rib fractures. IMPRESSION: No acute findings | | | in the abdomen or pelvis. Signed by: Marcus Clinton | | + + + + + | Procedure Note | + + | Cooper, Rad Results In - 05/03/2017 4:23 PM PDT | | CT ABDOMEN AND PELVIS WITH CONTRAST | | | | CLINICAL INFORMATION: | | Abdominal pain with nausea and vomiting. | | | | COMPARISON: | | XR PELVIS 1 OR 2 VW dated 08/25/2016; PELVIS ONE OR TWO VIEWS dated | | 09/27/2013 | | | | PROCEDURE: | | Axial images through the abdomen and pelvis after the administration of | | 100 mL Isovue 370 intravenous contrast. Multiplanar reconstructions. | | | | At least one of the following CT dose optimization techniques were | | used: Automated exposure control; Adjustment of mA and/or kV according | | to patient size; Use of iterative reconstruction technique. | | | | FINDINGS: | | LUNG BASES: No significant pulmonary abnormality. No pleural effusion | | or pneumothorax. | | | | ABDOMEN | | Liver and Biliary: No gallbladder or biliary abnormality. No | | significant liver abnormality. | | Pancreas, Spleen and Adrenals: No pancreatitis or pancreatic mass. No | | splenomegaly, splenic mass or splenic hemorrhage. No significant | | adrenal abnormality. | | Kidneys: No hydronephrosis, calculus or solid renal mass. | | | | ABDOMEN AND PELVIS | | Bowel: No small bowel or colonic dilation or adjacent inflammation. No | | appendiceal dilation or inflammation. | | Vessels: Atherosclerotic disease present in the abdominal aorta without | | aneurysm. Atherosclerotic disease present also at the mid superior | | mesenteric artery. No significant abnormality in the portal veins, | | mesenteric veins or systemic veins. | | Lymph Nodes: No adenopathy. | | Peritoneum and Retroperitoneum: No ascites or free air. No significant | | retroperitoneal abnormality. | | | | PELVIS | | Genitourinary: Prior hysterectomy. No adnexal mass. No free fluid in | | the pelvis. | | | | BODY WALL | | Soft Tissues: No bowel or inflamed fat containing hernia, mass or | | hemorrhage. | | Bones: Advanced degenerative changes in the bilateral hips. Chronic, | | healed left pubic ramus fracture superiorly and inferiorly. Healed | | anterior left 6th through 9th rib fractures. | | | | IMPRESSION: | | No acute findings in the abdomen or pelvis. | | | | | | | | Signed by: Marcus Clinton | + + + +---------+ + + | Performing | Address | City/State/Zipcode | Phone Number | | Organization | | | | + +---------+ + + | [facility] | | | | + +---------+ + + Extra Hold Tube(s) (05/03/2017 2:30 PM PDT) + +-------+ + + + | Component | Value | Ref Range | Performed | Pathologist | | | | | At | Signature | + +-------+ + + + | Extra Tube | B,Y | | [facility] | | | | [...] + + + + + | [facility] | [address] | [place] [address] | | | [facility] | | | | | LAB[facility]ATORY | | | | + + + + + Lipase (05/03/2017 2:30 PM PDT) + +--------+ + + + | Component | Value | Ref Range | Performed | Pathologist | | | | | At | Signature | + +--------+ + + + | Lipase | 62 (L) | 70 - 350 U/L | [facility] [...] + | [facility] | [address] [facility] | [place] [address] | | | [facility] | | | | | LABORATORY | | | | + + + + + Comprehensive Metabolic Panel (05/03/2017 2:30 PM PDT) + + + + + + | Component | Value | Ref Range | Performed | Pathologist | | | | | At | Signature | + + + + + + | Na | 132 (L) | 135 - 146 | [facility] | | | | | mmol/L | [facility] | [facility] | | | | | | LAB[facility]ORY | | + + + + + + | K | 4.0 | 3.6 - 5.2 | [facility] | | | | | mmol/L | [facility] | | | | | | LAB[facility]ATORY | | + + + + + + | Cl | 97 (L) | 98 - 109 mmol/L | [facility] | | | | | | [facility] | | | | | | [facility]ATORY | | + + + + + + | CO2 | 23 | 21 - 32 mmol/L | [facility] | | | | | | [facility] | | | | | | [facility]ATORY | | + + + + + + | Glucose | 120 (H)Comment: Impaired | 65 - 99 mg/dL | [facility] | | | | fasting glucose: 100 to | | [facility] | | | | 125 mg/dL. | | [facility] | | | | | | LABORATORY | | + + + + + + | BUN | 16 | 7 - 23 mg/dL | [facility] | | | | | | [facility] | | | | | | LAB[facility]ATORY | | + + + + + + | Creatinine | 0.73 | 0.40 - 1.00 | [facility] | [...] + + + + | Total | 8.4 (H) | 6.3 - 8.0 g/dL | [facility] | | | Protein | | | [facility] | | | | [facility] | | | | | | LAB[facility]ATORY | | + + + + + + | Albumin | 3.8 | 3.5 - 5.0 g/dL | [facility] [...] + + + + | Alkaline | 165 (H) | 35 - 115 U/L | [facility] | | | Phosphatase | | | [facility] | | | | [facility] | | | | | | LABORATORY | | + + + + + + | AST | 29 | 5 - 40 U/L | [facility] | | | | | | [facility] | [facility] | | | | | | LAB[facility]ATORY | | + + + + + + | ALT | 23 | 10 - 65 U/L | [facility] [...] + + + | [facility] | [address] | [place] [address] | | | [facility] | | | | | LABORATORY | | | | + + + + + CBC with Differential (05/03/2017 2:30 PM PDT) + + + + + + | Component | Value | Ref Range | Performed | Pathologist | | | | | At | Signature | + + + + + + | WBC | 11.8 (H) | 4.0 - 11.0 K/uL | [facility] | | | | | | [facility] | | | | | | [facility]ATORY | | + + + + + + | RBC | 4.67 | 3.80 - 5.20 | [facility] | | | | | M/uL | [facility] | [facility] | | | | | | LAB[facility]ATORY | | + + + + + + | Hemoglobin | 13.7 | 11.6 - 15.5 | [facility] | | | | | g/dL | [facility] | | | | | | LAB[facility]ATORY | | + + + + + + | Hematocrit | 40.6 | 35.0 - 46.0 % | [facility] [...] + + + + | Platelet | 376 | 150 - 400 K/uL | [facility] [...] + + + + | % | 85.7 (H) | 40.0 - 80.0 % | [facility] | | | Neutrophils | | | [facility] | | | | | | [facility]ATORY | | + + + + + + | % | 11.4 (L) | 15.0 - 45.0 % | [facility] | | | Lymphocytes | | | [facility] | | [facility] | | | | | | LAB[facility]ATORY | | + + + + + + | % Monocytes | 2.4 | 0.0 - 12.0 % | [facility] [...] + + + | % Basophils | 0.4 | 0 - 2 % | [facility] | | | | | | [facility] | [facility] | | | | | | LAB[facility]ATORY | | + + + + + + | Absolute | 10.10 (H) | 2.0 - 7.3 K/uL | [facility] | | | Neutrophils | | | [facility] | [facility] | [facility] | | | | | | LAB[facility]ATORY | | + + + + + + | Absolute | 1.30 | 1.0 - 3.4 K/uL | [facility] | | | Lymphocytes | | | [facility] | | | | [facility] | | | | | | LAB[facility]ATORY | | + + + + + + | Absolute | 0.30 | 0.0 - 0.8 K/uL | [facility] [...] 0.00 | 0.0 - 0.1 K/uL | [facility] | | | Basophils | | | [facility] | | [...] + + + | [facility] | [address] | [place] [address] | | | [facility] | | | | | [facility] | | | | + + + + + documented in this encounter Visit Diagnoses + + | Diagnosis | + + | Abdominal pain, unspecified location - Primary | + + | Nausea and vomiting, intractability of vomiting not specified, unspecified vomiting | | type | + + | Methamphetamine abuse (HCC) Nondependent amphetamine or related acting | | sympathomimetic abuse, unspecified | + + documented in this encounter Administered Medications + +--------+ +---------+------+------+ | Medication Order | MAR | Action | Dose | Rate | Site | | | Action | Date | | | | + +--------+ +---------+------+------+ | iopamidol (ISOVUE-370) 370 | Given | 05/03/20 | 100 mLs | | | | mg/mL injection 100 mL 100 mL, | | 17 3:54 | | | | | Intravenous, ONCE PRN, Other, | | PM PDT | | | | | Starting 05/03/17 at 1610, For | | | | | | | 1 dose, [facility] Scanner | | | | | | + +--------+ +---------+------+------+ +---+---+ | | | +---+---+ + +-------+ +--------+---+---+ | LORazepam (ATIVAN) injection | Given | 05/03/20 | 0.5 mg | | | | 0.5 mg 0.5 mg, Intravenous, | | 17 3:34 | | | | | ONCE, 05/03/17 at 1505, For 1 | | PM PDT | | | | | dose | | | | | | + +-------+ +--------+---+---+ +---+---+ | | | +---+---+ + +-------+ +------+---+---+ | morphine injection 4 mg 4 mg, | Given | 05/03/20 | 4 mg | | | | Intravenous, PRN, Pain, Starting | | 17 3:34 | | | | | 05/03/17 at 1459, For 3 doses, | | PM PDT | | | | | May use as needed for pain x 3 | | | | | | | doses, | | | | | | + +-------+ +------+---+---+ +---+---+ | | | +---+---+ + +-------+ +------+---+---+ | ondansetron (ZOFRAN) injection | Given | 05/03/20 | 8 mg | | | | 8 mg 8 mg, Intravenous, ONCE, | | 17 2:43 | | | | | 05/03/17 at 1410, For 1 dose | | PM PDT | | | | + +-------+ +------+---+---+ +---+---+ | | | +---+---+ + +---------+ +--------+-------+---+ | sodium chloride 0.9% (NS) bolus | New Bag | 05/03/20 | 1,000 | 2000 | | | 1,000 mL 1,000 mL, Intravenous, | | 17 2:43 | mLs | mL/hr | | | Administer over 30 Minutes, | | PM PDT | | | | | ONCE, 05/03/17 at 1410, For 1 | | | | | | | dose | | | | | | + +---------+ +--------+-------+---+ +---+---+ | | | +---+---+ + +------+ +--------+-------+---+ | sodium chloride 0.9% (NS) bolus | Push | 05/03/20 | 60 mLs | 3600 | | | 60 mL 60 mL, Intravenous, | | 17 3:54 | | mL/hr | | | Administer over 1 Minutes, ONCE | | PM PDT | | | | | PRN, for contrast study, Starting | | | | | | | 05/03/17 at 1610, For 1 dose, | | | | | | | May infuse at a different rate | | | | | | | per protocol., Cat Scanner | | | | | | + +------+ +--------+-------+---+ +---+---+ | | | +---+---+ documented [...]
--- OUTSIDE RECORDS SUMMARY | ~2019-09-08 | XMS | Clinical Summary ---
Demographics + + + | Address | [address] | | | [place] [address] | + + + | Home Phone | | + + + | Preferred Language | Unknown | + + + | Marital Status | | + + + | Faith Affiliation | 1041 | + + + | Race | Unknown | + + + | Ethnic Group | Unknown | + + + Author + + + | Author | [facility] | | | and Ankitana | + + + | Organization | [facility] [...] Providers + +------+ + | Care Marketing Administrator Name | Role | Phone | [...] | mouth nightly. | tablet | | 7/20 | | e | | tabletIndications: | [...] | | + + + +---------+------+------+-------+ | sodium | Take 177 mLs by | 2 | 0 | 11/2 | | Activ | | sulfate-potassium | mouth (see | Bottle | | 04/24 | | e | | sulfate-magnesium | instruction). Take | | | 19 | | | | sulfate (SUPREP | one kit, first dose | | | | | | | BOWEL PREP KIT) oral | at 4pm, second dose | | | | | | | solution | at 8pm day before | | | | | | | | procedure | | | | | | + + + +---------+------+------+-------+ | ondansetron | As needed for | 2 | 0 | 11/2 | | Activ | | (ZOFRAN) 4 mg tablet | nausea; stop prep; | tablet | | 7/20 | | e | | | take 1 tablet; wait | | | 19 | | | | | 30 min then resume | | | | | | | | prep; repeat 1x prn | | | | | | + + + +---------+------+------+-------+ | QUEtiapine | Take 100 mg by mouth | | 0 | | 11/2 | Disco | | (SEROQUEL) 100 mg | nightly. | | | | 7/20 | ntinu | | tablet | | | | | 19 | ed | | | | | | | | (Ther | | | | | | | | apy | | | | | | | | compl | | | | | | | | eted) | + + + +---------+------+------+-------+ | hydrOXYzine | Take 25 mg by mouth | | 0 | | 11/2 | Disco | | hydrochloride | every 6 hours as | | | | 7/20 | ntinu | | (ATARAX) 25 mg | needed for Itching. | | | | 19 | ed | | tablet | | | | | | (Ther | | | | | | | | apy | | | | | | | | compl | | | | | | | | eted) | + + + +---------+------+------+-------+ | ibuprofen | Take 600 mg by mouth | | 0 | | 11/2 | Disco | | (ADVIL,MOTRIN) 600 | every 6 hours as | | | | 7/20 | ntinu | | MG tablet | needed for Pain. | | | | 19 | ed | | | | | | | | (Ther | | | | | | | | apy | | | | | | | | compl | | | | | | | | eted) | + + + +---------+------+------+-------+ | ondansetron | Take 8 mg by mouth | | 0 | | 11/2 | Disco | | (ZOFRAN ODT) 8 mg | every 8 hours as | | | | 7/20 | ntinu | | disintegrating | needed for Nausea. | | | | 19 | ed | | tablet | | | | | | (Ther | | | | | | | | apy | | | | | | | | compl | | | | | | | | eted) | + + + +---------+------+------+-------+ | ciprofloxacin | Take 500 mg by mouth | | 0 | | 11/2 | Disco | | (CIPRO) 500 mg | 2 times daily. | | | | 7/20 | ntinu | | tablet | | | | | 19 | ed | | | | | | | | (Ther | | | | | | | | apy | | | | | | | | compl | | | | | | | | eted) | + + + +---------+------+------+-------+ | dicyclomine | Take 20 mg by mouth | | 0 | | 11/2 | Disco | | (BENTYL) 20 MG | every 6 hours. | | | | 7/20 | ntinu | | tablet | | | | | 19 | ed | | | | | | | | (Ther | | | | | | | | apy | | | | | | | | compl | | | | | | | | eted) | + + + +---------+------+------+-------+ Active Problems [...] and | | lateral castillo from prior AL, mild destinee infarct ischemia. LARGE | | SEVERE inferior and Lateral AL. 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 Non STEMI | | June [...] + + + + + | H/O AL (myocardial infarction) | 10/06/2011 | + + + + + | Overview: Large Inferior posterior AL March 2012. | | Non STEMI June [...] | +--------+ + + + + | 09/08/ | Emergency | Emergency Medicine | | | | 2018 | | | | | +--------+ + + + + | 09/01/ | Office | Gastroenterology | Aba Gonsalez | Chronic abdominal | | 2019 | Visit | | MD George | pain (Primary Dx); | | | | | | Hepatitis C virus | | | | | | infection without | | | | | | hepatic coma, | | | | | | unspecified | | | | | | chronicity; Night | | | | | | sweats; Bloating; | | | | | | Chronic idiopathic | | | | | | constipation; | | | | | | Bipolar affective | | | | | | disorder, remission | | | | | | status unspecified | | | | | | (HCC); Polysubstance | | | | | | abuse (HCC) | +--------+ + + + + | [...] + + + | Blood Pressure | 118/72 | 09/01/2019 1:13 PM | | | | | PST | | + + + + + | Pulse | 63 | 09/01/2019 1:13 PM | | | | | PST | | + + + + + | Temperature | 36.5 C (97.7 F) | 09/01/2019 1:13 PM | | | | | PST | | + + + + + | Respiratory Rate | 16 | 09/01/2019 1:13 PM | | | | | PST | | + + + + + | Oxygen Saturation | 100% | 09/01/2019 1:13 PM | | | | | PST | | + + + + + | Inhaled Oxygen | - | - | | | Concentration | | | | + + + + + | Weight | 75.8 kg (167 lb 1.7 | 09/01/2019 1:13 PM | | | | oz) | PST | | + + + + + | Height | 172.7 cm (5' 8") | 09/01/2019 1:13 PM | | | | | PST | | + + + + + | Body Mass Index | 25.41 | 09/01/2019 1:13 PM | | | | | PST [...] | | | | | | [place] [address] | | | | | | [phone] | | | | | | | [...] + + + | Vaccine: Influenza | Completed | 06/24/2019, 07/14/2018, | | | | | 08/19/2016, Additional history | | | | | exists | | + + + + + | Hepatitis C | Completed | 09/01/2019, 08/13/2018, | | | Screening | | 06/10/2018, Additional history | | | | | exists | | + + + + + [...] Lot | + +--------+--------+ +--------+--------+--------+ | Marker Sheryl Martinez [facility] - | Generi | | GENESSE | | 09/16/ | AMGM-S | | [id number]: Qty: 2 | c | | BIOMEDICAL | | 2020 | D / / | | on 06/11/2018 by Eleanor, | | | - JALEN | | | | | Hemanth Cooper MD at [facility] | | | | | | | | [facility] | | | | | | | + +--------+--------+ +--------+--------+--------+ | Lens Tecnis Preloaded Pcb 8.5 | Generi | Left: | MORENO | | 04/24/ | [id number] | | - [id number]: Qty: | c | Eye | MEDICAL | | 2018 | 0085 | | 1 on 08/13/2018 by Jose Manuel, | | | OPTICS - | | | /[id number] | | Seamus Chance MD at [facility] | | | [place] | | | [id number] | | [facility] | | | | | | / | | CENTER | | | | | | | + +--------+--------+ +--------+--------+--------+ | Lens Tecnis Preloaded Pcb 8.5 | Generi | Right: | MORENO | | 01/31/ | [id number] | | - [id number]: Qty: | c | Eye | MEDICAL | | 2018 | 0085 | | 1 on 09/10/2018 by Jose Manuel, | | | OPTICS - | | | /[id number] | | Seamus Chance MD at [facility] | | | [place] | | | [id number] | | [facility] | | | | | | /N/A | | CENTER | | | | | | | + +--------+--------+ +--------+--------+--------+ Procedures + +--------+ + + + | Procedure Name | Priori | Date/Time | Associated Diagnosis | Comments | | | ty | | | | + +--------+ + + + | ED INFORMATION | Routin | 09/08/2019 | | | | EXCHANGE | e | 2:04 PM | | | | | | PST | | | + +--------+ + + + +---+--------+ | | | | | Proced | | | ure | | | Note - | | | Tim, | | | Lab In | | | | | | Hlseve | | | n - | | | 09/08/ | | | 2018 | | | 2:05 | | | PM PST | | | | | | Format | | | ting | | | of | | | this | | | note | | | might | | | be | | | differ | | | ent | | | from | | | the | | | origin | | | al.COL | | | LECTIV | | | E?NOTI | | | FICATI | | | ON? | | | | | | 9 | | | 14:03? | | | YOUNG, | | | | | | MELIND | | | A | | | E?MRN: | | | | | | [id number] | | | [id number] | | | riteri | | | a Met | | | | | | Medica | | | id 5 | | | in | | | 12Secu | | | rity | | | and | | | Safety | | | No | | | recent | | | | | | Securi | | | ty | | | Events | | | | | | curren | | | tly on | | | | | | fileED | | | Care | | | Guidel | | | inesTh | | | ere | | | are | | | curren | | | tly no | | | ED | | | Care | | | Guidel | | | malorie | | | for | | | this | | | patien | | | t. | | | Please | | | check | | | your | | | facili | | | ty's | | | medica | | | l | | | record | | | s | | | system | | | .Care | | | Histor | | | yMedic | | | al/Maxine | | | gical1 | | | 1//16 | | | 12:00 | | | [...] | | | with.1 | | | 2/21/1 | | | 5 | | | [...] | | ectomy | | | , [place] | | | with | | | cardia | | | c | | | stent | | | in | | | 2012.I | | | nfecti | | | [...] | | | 12/15/ | | | 15.Sub | | | stance | | | | | | Use/Ov | | | erdose | | | 12/21/ | | | 15 | | | 12:00 | | | [...] | | | er | | | 2015.P | | | rescri | | | ption | | | Drug | | | Report | | | (12 | | | Mo.)PD | | | MP | | | query | | | found | | | no | | | report | | | .E.D. | | | Visit | | | Count | | | (12 | | | mo.)Fa | | | cility | | | | | | Visits | | | Low | | | Acuity | | | | | | Provid | | | ence | | | [facility] | | [facility] | | | l | | | Center | | | 1 0 | | | [facility] [place] | | | y | | | Hospit | | | al 6 0 | | | Total | | | 7 0 | | | Note: | | [...] | | | Summar | | | yDate | | | Facili | | | ty | | | City | | | State | | | Type | | | Diagno | | | ses or | | | Chief | | | | | | Compla | | | int | | | Dec 4, | | | 2019 | | | Provid | | | ence | | | [facility] | [place] | | | [place] | | | Emerge | | | ncy | | | | | | severe | | | abd | | | pain | | | Nov | | | 16, | | | 2019 | | | [facility] [place] | | | [facility] | | | [place] | | | [place] | | | Emerge | | | ncy | | | | | | Unspec | | | ified | | | abdomi | | | nal | | | pain | | | | | | Other | | | chroni | | | c pain | | | | | | Essent | | | ial | | | (prima | | | ry) | | | hypert | | | ension | | | | | | Nicoti | | | ne | | | depend | | | ence, | | | unspec | | | ified, | | | | | | uncomp | | | licate | | | d | | | Nausea | | | with | | | vomiti | | | ng, | | | unspec | | | ified | | | | | | Long | | | term | | | (curre | | | nt) | | | use of | | | | | | opiate | | | | | | analge | | | sic | | | Long | | | term | | | (curre | | | nt) | | | use of | | | | | | aspiri | | | n | | | Other | | | long | | | term | | | (curre | | | nt) | | | drug | | | therap | | | y Uriah | | | 26, | | | 2019 | | | [facility] [place] | | | [facility] | | | [place] | | [place] | | | Emerge | | | ncy | | | | | | Unspec | | | ified | | | abdomi | | | nal | | | pain | | | | | | Nausea | | | with | | | vomiti | | | ng, | | | unspec | | | ified | | | | | | Gastro | | | -esoph | | | ageal | | | reflux | | | | | | diseas | | | e | | | withou | | | t | | | esopha | | | gitis | | | | | | Other | | | long | | | term | | | (curre | | | nt) | | | drug | | | therap | | | y | | | Nicoti | | | ne | | | depend | | | ence, | | | unspec | | | ified, | | | | | | uncomp | | | licate | | | d | | | Long | | | term | | | (curre | | | nt) | | | use of | | | | | | aspiri | | | n | | | Essent | | | ial | | | (prima | | | ry) | | | hypert | | | ension | | | | | | Nicoti | | | ne | | | depend | | | ence, | | | cigare | | | ttes, | | | uncomp | | | licate | | | d Uriah | | | 25, | | | 2019 | | | [facility] [place] | | | [facility] | | | [place] | | | [place] | | | Emerge | | | ncy | | | Left | | | lower | | | quadra | | | nt | | | pain | | | | | | Nicoti | | | ne | | | depend | | | ence, | | | unspec | | | ified, | | | | | | uncomp | | | licate | | | d | | | Presen | | | ce of | | | shanks | | | ry | | | angiop | | | lasty | | | implan | | | t and | | | graft | | | | | | Presen | | | ce of | | | aortoc | | | oronar | | | y | | | bypass | | | graft | | | | | | Other | | | long | | | term | | | (curre | | | nt) | | | drug | | | therap | | | y | | | Long | | | term | | | (curre | | | nt) | | | use of | | | | | | aspiri | | | n | | | Essent | | | ial | | | (prima | | | ry) | | | hypert | | | ension | | | | | | Acquir | | | ed | | | absenc | | | e of | | | both | | | cervix | | | and | | | uterus | | | Mar | | | 28, | | | 2019 | | | [facility] [place] | | | [facility] | | | [place] | [place] | | | Emerge | | | ncy | | | | | | Gastro | | | -esoph | | | ageal | | | reflux | | | | | | diseas | | | e | | | withou | | | t | | | esopha | | | gitis | | | | | | Dvtrcl | | | i of | | | intest | | | , part | | | unsp, | | | w/o | | | perf | | | or | | | absces | | | s w/o | | | bleed | | | | | | Acquir | | | ed | | | absenc | | | e of | | | both | | | cervix | | | and | | | uterus | | | | | | Athscl | | | heart | | | | | | diseas | | | e of | | | [place] | | | | | | shanks | | | ry | | | artery | | | w/o | | | ang | | | pctrs | | | | | | Essent | | | ial | | | (prima | | | ry) | | | hypert | | | ension | | | | | | Other | | | long | | | term | | | (curre | | | nt) | | | drug | | | therap | | | y | | | Ischem | | | ic | | | cardio | | | myopat | | | hy | | | Lower | | | abdomi | | | nal | | | pain, | | | unspec | | | ified | | | | | | Presen | | | ce of | | | aortoc | | | oronar | | | y | | | bypass | | | graft | | | | | | Long | | | term | | | (curre | | | nt) | | | use of | | | | | | aspiri | | | n Mar | | | 23, | | | 2019 | | | [facility] [place] | | | [facility] | | | [place] | [place] | | | Emerge | | | ncy | | | | | | Nausea | | | with | | | vomiti | | | ng, | | | unspec | | | ified | | | | | | Ischem | | | ic | | | cardio | | | myopat | | | hy | | | Nicoti | | | ne | | | depend | | | ence, | | | unspec | | | ified, | | | | | | uncomp | | | licate | | | d | | | Long | | | term | | | (curre | | | nt) | | | use of | | | | | | aspiri | | | n | | | Athscl | | | heart | | | | | | diseas | | | e of | | | [place] | | | | | | shanks | | | ry | | | artery | | | w/o | | | ang | | | pctrs | | | | | | Presen | | | ce of | | | aortoc | | | oronar | | | y | | | bypass | | | graft | | | | | | Noninf | | | ective | | | | | | gastro | | | enteri | | | tis | | | and | | | coliti | | | s, | | | unspec | | | ified | | | | | | Other | | | long | | | term | | | (curre | | | nt) | | | drug | | | therap | | | y | | | Gastro | | | -esoph | | | ageal | | | reflux | | | | | | diseas | | | e | | | withou | | | t | | | esopha | | | gitis | | | | | | Essent | | | ial | | | (prima | | | ry) | | | hypert | | | ension | | | Iain | | | 16, | | | 2019 | | | [facility] [place] | | | [facility] | | | [place] | | | [place] | | | Emerge | | | ncy | | | Lower | | | | | | abdomi | | | nal | | | pain, | | | unspec | | | ified | | | | | | Noninf | | | ective | | | | | | gastro | | | enteri | | | tis | | | and | | | coliti | | | s, | | | unspec | | | ified | | | | | | Long | | | term | | | (curre | | | nt) | | | use of | | | | | | aspiri | | | n | | | Nicoti | | | ne | | | depend | | | ence, | | | unspec | | | ified, | | | | | | uncomp | | | licate | | | d | | | Essent | | | ial | | | (prima | | | ry) | | | hypert | | | ension | | | | | | Gastro | | | -esoph | | | ageal | | | reflux | | | | | | diseas | | | e | | | withou | | | t | | | esopha | | | gitis | | | | | | Other | | | long | | | term | | | (curre | | | nt) | | | drug | | | therap | | | y | | | Recent | | | | | | Inpati | | | ent | | | Visit | | | Summar | | | yNo | | | record | | | ed | | | inpati | | | ent | | | visits | | | . 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 | | | [facility] | | | l | | | Center | | | | | | Emerge | | | ncy | | | Depart | | | ment | | | For | | | more | | | inform | | | ation | | | visit: | | | | | | https: | | | //secu | | | re.col | | | lectiv | | | emedic | | | al.com | | | /notif | | | y/3031 | | | de8e-c | | | ce9-4d | | | [id number] | | | [id number] | | | [id number] | | | 7c | | | PLEASE | | | NOTE: | | | 1. | | | Any | | | care | | | recomm | | | endati | | | ons | | | and | | | other | | | clinic | | | al | | | inform | | | ation | | | are | | | provid | | | ed as | | | guidel | | | malorie | | | or for | | | | | | histor | | | ical | | | purpos | | | es | | | only, | | | and | | | provid | | | ers | | | should | | | | | | exerci | | | se | | | their | | | own | | | clinic | | | al | | | judgme | | | nt | | | when | | | provid | | | ing | | | care. | | | 2. | | | You | | | may | | | only | | | use | | | this | | | inform | | | ation | | | for | | | purpos | | | es of | | | treatm | | | ent, | | | paymen | | | t or | | | health | | | care | | | operat | | | ions | | | activi | | | ties, | | | and | | | subjec | | | t to | | | the | | | limita | | | tions | | | of | | | applic | | | able | | | Collec | | | tive | | | Polici | | | es. | | | 3. | | | You | | | should | | | | | | consul | | | t | | | direct | | | ly | | | with | | | the | | | organi | | | zation | | | that | | | provid | | | ed a | | | care | | | guidel | | | ine or | | | other | | | | | | clinic | | | al | | | histor | | | y with | | | any | | | questi | | | ons | | | about | | | additi | | | onal | | | inform | | | ation | | | or | | | accura | | | cy or | | | comple | | | teness | | | of | | | inform | | | ation | | | provid | | | ed.? | | | 2019 | | | Collec | | | tive | | | Medica | | | l | | | Techno | | | logies | | | , Inc[employer] | | | - | | | [email or web address] | | | llecti | | | vemedi | | | [email or web address] | | | m | +---+--------+ + +--------+ +---+ + | COMPREHENSIVE | Routin | 06/24/2019 | | Results for this | | METABOLIC PANEL | e | | | procedure are in the | | | | | | results section. | + +--------+ +---+ + | EXTERNAL LAB: BUN | Routin | 06/24/2019 | | Results for this | | | e | | | procedure are in the | | | | | | results section. | + +--------+ +---+ + | EXTERNAL LAB: | Routin | 06/24/2019 | | Results for this | | GLUCOSE | e | | | procedure are in the | | | | | | results section. | + +--------+ +---+ + | EXTERNAL LAB: | Routin | 06/24/2019 | | Results for this | | CALCIUM | e | | | procedure are in the | | | | | | results section. | + +--------+ +---+ + | EXTERNAL LAB: CARBON | Routin | 06/24/2019 | | Results for this | | DIOXIDE | e | | | procedure are in the | | | | | | results section. | + +--------+ +---+ + | EXTERNAL LAB: | Routin | 06/24/2019 | | Results for this | | CHLORIDE | e | | | procedure are in the | | | | | | results section. | + +--------+ +---+ + | EXTERNAL LAB: | Routin | 06/24/2019 | | Results for this | | POTASSIUM | e | | | procedure are in the | | | | | | results section. | + +--------+ +---+ + | EXTERNAL LAB: SODIUM | Routin | 06/24/2019 | | Results for this | | | e | | | procedure are in the | | | | | | results section. | + +--------+ +---+ + | EXTERNAL LAB: EGFR | Routin | 06/24/2019 | | Results for this | | | e | | | procedure are in the | | | | | | results section. | + +--------+ +---+ + | EXTERNAL LAB: | Routin | 06/24/2019 | | Results for this | | CREATININE | e | | | procedure are in the | | | | | | results section. | + +--------+ +---+ + from Last 3 Months Results External Lab: NATASHA (06/24/2019) + +-------+ + + + | [...] +--------+ +---------+--------+ | MEDICARE | MEDICA | [id number] | | [phone] | | Medica | | | RE | | 012-Pr | 5 | | re | | | PART A | | esent | | | | | | AND B | | | | | | + +--------+ +--------+ +---------+--------+ | [employer] | MODA | [id number] | 08/25/ | [phone] | | Medica | | MEDICAID HMO | HEALTH | | 2019-P | 1 | | id | | | MDCD | | resent | | | | | | HMO [place] | | | | | | + +--------+ +--------+ +---------+--------+ | DEPARTMENT OF | [facility] | [id number] | 06/06/20 | | | Indemn | [...] | Self | [birth year] | | [address] | | | al/Fam | | [phone] | [phone] | [place] [id number] | | | daljit | | | 6 (Home) | | + +--------+ +--------+ + + | [facility] | 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/ | | [address] | | | ate | | [phone] | [phone] | [place] [address] | | | | | | 9 (Home) | | + +--------+ +--------+ + + Advance Directives + + + + + | Type | Date Recorded | Patient | Explanation | | | | Cns | | + + + + + | Power of | | | | | 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
--- OUTSIDE RECORDS SUMMARY | ~2019-09-08 | XMS | Encounter Summary ---
Demographics + + + | Address | [address] | | | [place] [address] | + + + | Home Phone | | + + + | Preferred Language | Unknown | + + + | Marital Status | | + + + | Rastafarian Affiliation | 1041 | + + + | Race | Unknown | + + + | Ethnic Group | Unknown | + + + Author + + + | Author | [facility] | | | and Ankitana | + + + | Organization | [facility] | [...] Providers + +------+ + | [facility] Name | Role | Phone | + +------+ + | Kiran Oneill DO | PCP | | + +------+ + Encounter Details +--------+ + + + + | Date | Type | Department | Care Team | Description | +--------+ + + + + | 09/08/ | Emergency | [facility] | | | | 2019 | [facility] | | | | | | [place] | | | | | | [place], [place] | | | | | | [address] | | | | | | [phone] | | | +--------+ + + + [...] + + +---------+ + + | | Inhale 1 puff into | | 0 | | | | albuterol-ipratropiu | the lungs 4 times | | | | | | m (COMBIVENT | daily. | | | | | | RESPIMAT) 100-20 | | | | | | | mcg/puff inhaler | | | | | | + + + +---------+ + + | alendronate | Take 70 mg by mouth | | 0 | | | | (FOSAMAX) 70 mg | every 7 days. | | | | | | [...] + + + +---------+ + + | gabapentin | Take 300 mg by mouth | | 0 | | | | (NEURONTIN) 300 mg | 3 times daily. | | | | | | capsule | | | | | | + + + +---------+ + + | | Take by mouth 4 | | 0 | | | | HYDROcodone-acetamin | times daily as | | | | | | ophen (HYCET) | needed for Pain. | | | | | | 7.5-325 mg/15 mL | | | | | | | liquid | | | | | | + [...] + +---------+ + + | ondansetron | As needed for | 2 | 0 | 09/01/20 | | | (ZOFRAN) 4 mg tablet | nausea; stop prep; | tablet | | 19 | | | | take 1 tablet; wait | | | | | | | 30 min then resume | | | | | | | prep; repeat 1x prn | | | | | + + [...] + + + +---------+ + + | sodium | Take 177 mLs by | 2 | 0 | 09/01/20 | | | sulfate-potassium | mouth (see | Bottle | | 19 | | | sulfate-magnesium | instruction). Take | | | | | | sulfate (SUPREP | one kit, first dose | | | | | | BOWEL PREP KIT) oral | at 4pm, second dose | | | | | | solution | at 8pm day before | | | | | | | procedure | | | | | + + [...] [place], | | | | | | [place] [address] | | | | | | [phone] | | | | | | | | +--------+---------+ + + + + +------+--------+ + + | Name | Type | Priori | Associated Diagnoses | Date/Time | | | | ty | | | + +------+--------+ + + | ED INFORMATION | BEATRICE | Routin | | 09/08/2019 2:04 PM | | EXCHANGE | | e [...] | | | 09/08/ | | | 2019 | | | 2:05 | | | [...] | | | FICATI | | | ON?12/ | | | | | | 9 | | | 14:03? | | | YOUNG, | | | | | | MELIND | | | A | | | E?MRN: | | | | | | [id number] | | | [id number] | | | riteri | | | [...] | | | gical1 | | | 10/14/16 | | | 12:00 | | | [...] | | | with.1 | | | | | | 5 | [...] | | ectomy | | | , [place] | | | with | | | cardia | | | c | | | stent | | | in | | | 2012.I | | | nfecti | | | on/Chr | | | onic12 | | | //15 | | | 12:00 | | | [...] | | | St. | | | [place] | | | y | | | [...] | | | St. | | | [place] | | | y H. | | [...] | | | St. | | | [place] | | | y H. | | [...] | | | St. | | | [place] | | | y H. | | [...] | | | St. | | | [place] | | | y H. | | [...] | | e of | | | [place] | | | | | | shanks [...] | | | St. | | | [place] | | | y H. | | [...] | | e of | | | [place] | | | | | | shanks [...] | | | St. | | | [place] | | | y H. | | [...] | | | N, | | | INTERNET SECURITY SPECIALIST-C | | | Nurse | | | Practi | | | tioner | | | ([phone]) | | | | | | [phone] | | | 66 | | | Chris 2, | | | 2019 | | [...] [email or web address] | | | m | +---+--------+ documented in this encounter Visit Diagnoses Not on filedocumented in this encounter"
--- OUTSIDE RECORDS SUMMARY | ~2019-09-08 | XMS | Encounter Summary ---
Demographics + + + | Address | [address] | | | [place] [address] | + + + | Home Phone | | + + + | Preferred Language | Unknown | + + + | Marital Status | | + + + | Alevism Affiliation | 1041 | + + + | Race | Unknown | + + + | Ethnic Group | Unknown | + + + Author + + + | Author | [facility] | | | and Ankitana | + + + | Organization | [facility] | | | and Ankitana [...] Team Providers + +------+ + | Care It Sales Representative Name | Role | Phone | + +------+ + | [facility] | PCP | | + [...] N | Dx) | | | | [place] [address] | [facility] | | | | | [facility] | [place] [address] | | | | | [place], [place] | [phone] | | | | | [address] | | | | | | [phone] | Bello Hughes MD | | | | | | [address] | | | | | | [place], [place] | | | | | | [address] | | | | | | | [...] sent through Care Everywhere.UNDERSTANDING Reji MALCOLM DECAY (BRAZILIAN)documented in this encounter Medications at Time of [...] | | | | | | [place] [address] | | | | | | [phone] | | | | | | | | +--------+---------+ + + + documented as of this encounter Visit Diagnoses + + | Diagnosis | + + | Tooth decay - Primary Unspecified dental caries | + + documented in this encounter"
--- OUTSIDE RECORDS SUMMARY | ~2019-09-08 | XMS | Encounter Summary ---
Demographics + + + | Address | [address] | | | [place] [address] | + + + | Home Phone | | + + + | Preferred Language | Unknown | + + + | Marital Status | | + + + | Baptism Affiliation | 1041 | + + + | Race | Unknown | + + + | Ethnic Group | Unknown | + + + Author + + + | Author | [facility] | | | and Ankitana | + + + | Organization | [facility] | | | and [...] Team Providers + +------+ + | Care In Flight Technician Name | Role | Phone | + +------+ + | Yolanda Lee | PCP | | + +------+ + Reason for Visit + + + | Reason | Comments | + + + | Medication Question | | + + + Encounter Details +--------+ + + + + | Date | Type | Department | Care Team | Description | +--------+ + + + + | 06/22/ | Telephone | [facility] | Shad Schuler, | Medication Question | | 2018 | | [facility] | [address] | | | | | [address] | [address] [place], | | | | | [address] | [place] [address] | | | | | [address] | [phone] | | | | | [phone] | | | +--------+ + + + [...] [place], | | | | | | [place] [address] | | | | | | [phone] | | | | | | | | +--------+---------+ + + + documented as of this encounter Visit Diagnoses Not on filedocumented in this encounter"
--- OUTSIDE RECORDS SUMMARY | ~2019-09-08 | XMS | Encounter Summary ---
Demographics + + + | Address | [address] | | | [place] [address] | + + + | Home Phone [...] Author | [facility] | | | and Ankitana | + + + | Organization | [facility] | | [...] Team Providers + +------+ + | Care Striker Off Name | Role | Phone | + +------+ + | Yolanda Lee | PCP | | + +------+ + Reason for Visit + + + | Reason | Comments | + + + | Hand Swelling | | + + + | Skin Problem | | + + + Auth/Cert +--------+--------+ + + + + | Status | Reason | Specialty | Diagnoses / | Referred By | Referred To | | | | | Procedures | Contact | Contact | +--------+--------+ + + + + | Closed | | | Diagnoses | | [facility] | | | | | Coronary | | [address] | | | | | atherosclero | | [address], | | | | | sis of | | [place] | | | | | unspecified | | [address] | | | | | type of | | Phone: | | | | | vessel, | | [phone] | | | | | [place] or | | Fax: | | | | | graft | | [phone] | | | | | Hyponatremia | | | | | | | | | | | | | | Leukocytosis | | | | | | | Cellulitis | | | | | | | and abscess | | | | | | | | | | +--------+--------+ + + + + Encounter Details +--------+ + + + + | Date | Type | Department | Care Team | Description | +--------+ + + + + | 12/26/ | Hospital | [facility] | Ignacio Turcios, | Coronary | | 2015 - | Encounter | [facility] | [address] | atherosclerosis of | | | | MEDICAL [address] | [place], | unspecified type of | | 12/29/ | | [address] [place] | [place] [address] | vessel, [place] | | 2014 | | [address] | [phone] | graft (Primary Dx); | | | | [phone] | | Leukocytosis; | | | | | Shad Gaston | Cellulitis and | | | | | [address] | abscess; | | | | | [address] [place], | Hyponatremia; | | | | | [place] [address] | Bradycardia; | | | | | [phone] | Unspecified | | | | | | essential | | | | | Prejoel Balta | hypertension | | | | | MD [address] | | | | | | [address] | | | | | | [place] [address] | | | | | | [phone] | | | | | | | | | | | | Michela Umana MD | | | | | | [address] | | | | | | [place] | | | | | | [address] | | | | | | | | +--------+ + + + + Social History + + + +--------+------+ | Tobacco Use | Types | Packs/Day | Years | Date | | | | | Used | | + + + +--------+------+ | Former Smoker | Cigarettes | 1 | 20 | | + + + +--------+------+ + +---+---+---+ | Smokeless Tobacco: | | | | | Never Used | | | | + +---+---+---+ + + | Comments: She is a former cigarette smoker with a 1 pack per day for 20 years history. | | Denies smokeless tobacco use. | + + [...] + + + | Blood Pressure | 157/86 | 12/29/2014 7:30 AM | | | | | PDT | | + + + + + | Pulse | 66 | 12/29/2014 7:30 AM | | | | | PDT | | + + + + + | Temperature | 36.8 C (98.2 F) | 12/29/2014 7:30 AM | | | | | PDT | | + + + + + | Respiratory Rate | 18 | 12/29/2014 7:30 AM | | | | | PDT | | + + + + + | Oxygen Saturation | 97% | 12/29/2014 7:30 AM | | | | | PDT | | + + + + + | Inhaled Oxygen | - | - | | | Concentration | | | | + + + + + | Weight | 65.2 kg (143 lb 11.8 | 12/27/2014 2:32 AM | | | | oz) | PDT | | + + + + + | Height | 172.7 cm (5' 8") | 12/27/2014 2:32 AM | | | | | PDT | | + + + + + | Body Mass Index | 21.86 | 12/27/2014 2:32 AM | | | | | PDT [...] documented as of this encounter Discharge Summaries Balta Fuentes MD - 12/29/2014 9:42 AM PDT [facility] HOSPITALIST DISCHARGE SUMMARY PATIENT NAME: Smitha Pichardo DATE OF : 1955 DATE OF ADMISSION: 12/26/2014 DATE OF DISCHARGE: 12/29/2014 PRIMARY CARE PHYSICIAN: Litzy Zaman FOLLOW UP: [facility] Schedule an appointment as soon as possible for a visit in 1 week [facility] [place] for Care Transition Intervention Care Transition [facility] Hand: Jaymie Roman ext. 210 Care [facility]ling [facility] Marker will contact patient within 3 days after discharge to schedule a home visit. [facility] [place] [address] [facility] [address] DISCHARGE DISPOSITION: home CONSULTANTS THIS ADMISSION: Orthopedics, Dr. Nelson Almanza [facility] COURSE: Ms. Pichardo is a 59 year old woman with history of CAD and HTN who presented to the hospital with cellulitis of her right forearm and wrist. She was started on Unasyn and vancomycin an d had rapid improvement. Orthopedics came by to evaluate her and determined that she was im proving on antibiotics and didn't need any surgery. Wound culture grew Beta Strep and she w as switched to ceftriaxone and she will complete a IV course as an outpatient. Home health nursing will administer this to her at her home and assist her with anything else she may ne ed. At this time she is discharged in stable condition with follow up as listed above. DISCHARGE DIAGNOSES: Active Hospital Problems Diagnosis Cellulitis and abscess Coronary artery disease Hypertension Resolved Hospital Problems Diagnosis Leukocytosis Hyponatremia Bradycardia DISCHARGE EXAM: Temp: [36.1 C (97 F)-36.8 C (98.2 F)] 36.8 C (98.2 F) Pulse: [60-78] 66 Resp: [18] 18 BP: (150-173)/(76-89) 157/86 mmHg General: woman appearing stated age in no acute distress CV: RRR Resp: CTAB Abd: s, NT, ND Ext: right forearm edema and erythema greatly improved Neuro: AAOx3 DISCHARGE MEDICATIONS: Discharge Medications New Medications Details cefTRIAXone (ROCEPHIN) 1 g in sodium chloride 0.9% 50 mL IVPB Inject 1 g into the vein every 24 hours for 7 days. HYDROcodone-acetaminophen 5-325 mg per tablet Take 1-2 tablets by mouth every 4 hours as needed for Pain. aka: NORCO Changed Medications Details lisinopril 20 mg tablet Take 1 tablet by mouth Daily. What changed: - medication strength - how much to take aka: PRINIVIL, ZESTRIL Unchanged Medications Details aspirin 81 mg EC tablet Take 81 mg by mouth Daily. atorvaSTATin 40 mg tablet Take 40 mg by mouth nightly. aka: LIPITOR carvedilol 6.25 mg tablet Take 6.25 mg by mouth 2 times daily (with breakfast & dinner). aka: COREG FLUoxetine 20 mg capsule Take 20 mg by mouth Daily. aka: PROzac hydrOXYzine hydrochloride 10 mg tablet Take 25 mg by mouth nightly as needed for Itching or Anxiety. aka: ATARAX QUEtiapine 100 mg tablet Take 100 mg by mouth nightly. aka: SEROquel CONDITION AT DISCHARGE: Good TIME SPENT ON DISCHARGE: greater than 30 minutes Electronically signed by: Balta Fuentes MD 12/29/2014 12:14 Portions of this chart may have been created with PhotoRocket voice recognition software. Occasi onal wrong-word or sound-alike substitutions may have occurred due to the inherent meyers itations of voice recognition software. Please read the chart carefully and recognize, using context, where these substitutions have occurred document ed in this encounter Medications at Time of [...] +---------+ + + | cefTRIAXone | Inject 1 g into the | 7 each | 0 | 12/30/19 | | | (ROCEPHIN) 1 g in | vein every 24 hours | | | 15 | 5 | | sodium chloride 0.9% | for 7 days. | | | | | [...] encounter Progress Notes Rhona Ledesma RN - 12/29/2014 2:49 PM PDTAcknowledge PVNA referral. Met with pt and Dtr . [facility]. Electronically signed by: Rhona Ledesma RN 12/29/2014 14:49 arylOksana - 12/29/2014 2:11 PM PDTPt ready for d ischarge today. IV Therapy arranged for Leonora to see pt . HH needed for RN, pt agreeable to [facility]NA. Referral made to [facility]NA. Pt needing to be seen by PCP at [facility] today to be see n by Leonora. SW arranged taxi to take pt and daughter to [facility]. SW will continue to follow and assist as needed. Electronically signed by: FRAKN Lei 12/29/2014 14:11 Alla Ibarra RN - 0 12/29/2014 10:16 AM PDT R hand/wrist cellulitis, going home on IV antibiotics. Multiple scattered scabs and superfi cial open areas, covered with bordered foams, instructed patient on home care. Discharging l ater today. 12/29/14 1014 Visit Information Visit Type Initial wound assessment Wound 12/29/14 1014 Right: lateral torso ulceration Observed Date/Observed Time: 12/29/14 1014 Side: Right: Orientation: lateral Location: torso Wound Type: ulceration Additional Comments: scattered open areas and scab Wound WDL Ex Dressing Appearance moist drainage Wound Base bleeding;moist;pink;scab Periwound Area dry;intact Wound Edges open Drainage Characteristics/Odor serosanguineous Drainage Amount small Wound Cleaning sterile normal saline Dressing foam Visit Summary Discipline Providing Treatment WOCN Next Wound/Ostomy Visit Date (D/C today) Nicole Varela LIC SW - 12/28/2014 6:06 PM PDTPt to DC w/1 week of IV ABx. Pt has [place] and Medicaid. SW left a message for Lou (IV Therapy). Per CTC, pt lives with her dtr. Tracy Spencer RN - 12/28/2014 3:02 PM PDTPt condition stable, pleasant w/cares. Showered today independently. Picc placed today , medlocked between ABX. Multiple scabed and open wounds found on back and legs/arms. Pt sta rock that these just showed up a couple days ago, denies any recent IV drug abuse; aware. Electronically signed by: Tracy Tristan RN 12/28/2014 15:07 lSherrie bender PharmD - 12/28/2014 1:37 PM PDTFormatting of this note might be different from the origi nal. [facility] Progress Note VANCOMYCIN PER PHARMACY PROTOCOL: Day # 2 Smitha Pichardo is a 59 y.o. female receiving vancomycin for cellulitis and abscess of right forearm and wrist, no surgical intervention is needed Assessment/Plan: 1. Vancomycin trough = 9.1 prior to 4th dose of vancomycin 1gram (~15 mg/kg) IVPB every 12 hours 2. Goal trough = 10-15 mcg/mL 3. Continue current dose of vancomycin as patient is not yet at steady state and will accum ulate vancomycin some 4. Repeat vancomycin trough in ~5 days or sooner if clinically indicated 5. Pharmacy to monitor daily and adjust dosage per protocol Subjective/Objective: Min/Max Temp past 24 hours:Temp Av.7 C (98 F) Min: 36.6 C (97.9 F) Max: 36. 7 C (98.1 F) Recent Labs Lab 12/28/14 0420 12/27/14 0508 WBC 6.2 17.4* CREA 0.63 0.57 BUN 11 8 Estimated Creatinine Clearance: 96 mL/min (based on Cr of 0.63). Cultures: Wound Cx: group A strep, 1/2 Blood Cx: GPCs resemb staph, likely a contaminant wi th CoNS Per P&T-approved Vancomycin Protocol Electronically signed by: Sherrie Blanchard PHARMD 12/28/2014 13:37 reugschBalta john MD - 015 10:36 AM PDT [facility] HOSPITALIST PROGRESS NOTE PATIENT NAME: Smitha Pichardo AGE: 59 y.o. DATE OF SERVICE: 12/28/2014 HOSPITAL COURSE: Smitha Pichardo is a 59 y.o. female with a history of CAD and HTN adm itted on 12/26/2014 with cellulitis of right forearm and wrist. Improved with antibiotics. Or thopedics evaluated the patient and recommend continued treatment with antibiotics with no s urgery ASSESSMENT and PLAN: Cellulitis and abscess Assessment & Plan Of right forearm and wrist. Possible area of abscess over the ulnar head. She has had significant improvement overnight on Unasyn and vancomycin Orthopedics consultation appreciated, no surgery needed Will plan on treatment with IV antibiotics for 7-10 days Hypertension Assessment & Plan On Coreg and lisinopril Increasing lisinopril to 20mg as she is still hypertensive Coronary artery disease Assessment & Plan She denies acute symptoms, no recent chest pain. She is on aspirin, beta mateus, statin, PHOEBE inhibitor. Continue these medications. She reports she's been off Plavix for several months at the direction of her patient service technician pst (She sees [facility] as an outpatient) Leukocytosis Assessment & Plan Due to cellulitis and abscess of the forearm/wrist Resolved Hyponatremia Assessment & Plan Resolved with IVF. Continue to monitor Bradycardia Assessment & Plan Asymptomatic. Normal blood pressure. Likely from her carvedilol. Hold parameters written for her carvedilol if heart rate less than 55. SUBJECTIVE: Today she says her arm continues to improve. She still has some mild pain on movement and on palpation but this has greatly improved since admission. No fever, chills, sob. No furt her complaints REVIEW OF SYSTEMS: No cp, sob, fever, chills OBJECTIVE: PHYSICAL EXAM: Temp: [36.6 C (97.9 F)-37 C (98.6 F)] 36.7 C (98.1 F) Pulse: [65-87] 65 Resp: [18-20] 20 BP: (136-145)/(74-93) 145/93 mmHg General: woman appearing stated age in no acute distress CV: RRR Resp: CTAB Abd: S, Nt, ND Ext: no edema, right forearm and wrist continues to improve in regards to erythema and maritza a Neuro: AAOx3 24 HOUR LABS: Lab Results Component Value Date WBC 6.2 12/28/2014 HGB 11.1* 12/28/2014 HCT 32.7* 12/28/2014 MCV 81.4 12/28/2014 PLT 301 12/28/2014 Lab Results Component Value Date CREA 0.63 12/28/2014 BUN 11 12/28/2014 NA 135 12/28/2014 K 3.9 12/28/2014 CL 109 12/28/2014 CO2 22 12/28/2014 I spent 35 minutes with the patient and on the patient's unit, with over 50% spent in couns eling and/or coordination of care. Electronically signed by: Balta Fuentes MD 12/28/2014 10:36 Portions of this chart may have been created with PhotoRocket voice recognition software. Occasi onal wrong-word or sound-alike substitutions may have occurred due to the inherent meyers itations of voice recognition software. Please read the chart carefully and recognize, using context, where these substitutions have occurred reugsch at, Balta Keenan MD - 12/27/2014 9:33 AM PDT [facility] FACULT[facility] HOSPITALIST PROGRESS NOTE PATIENT NAME: Smitha Pichardo AGE: 59 y.o. DATE OF SERVICE: 12/27/2014 HOSPITAL COURSE: Smitha Pichardo is a 59 y.o. female with a history of CAD and HTN adm itted on 12/26/2014 with cellulitis of right forearm and wrist. Improved with antibiotics. Orthopedics consultation pending. ASSESSMENT and PLAN: Cellulitis and abscess Assessment & Plan Of right forearm and wrist. Possible area of abscess over the ulnar head. She has had significant improvement overnight on Unasyn and vancomycin Orthopedics to come evaluate today to see if she needs any surgical intervention Continue antibiotics for now. Coronary artery disease Assessment & Plan She denies acute symptoms, no recent chest pain. She is on aspirin, beta mateus, statin, PHOEBE inhibitor. Continue these medications. She reports she's been off Plavix for several months at the direction of her patient service technician pst (She sees [facility] as an outpatient) Leukocytosis Assessment & Plan Due to cellulitis and abscess of the forearm/wrist Improved overnight with antibiotic therapy Hyponatremia Assessment & Plan Resolved with IVF. Continue to monitor Bradycardia Assessment & Plan Asymptomatic. Normal blood pressure. Likely from her carvedilol. Hold parameters written for her carvedilol if heart rate less than 55. SUBJECTIVE: Today she says her arm feels a whole lot better. She is able to move it better as well. S lept well. No fever, chills, chest pain, or sob. REVIEW OF SYSTEMS: No cp, sob, abd pain, fever, chills OBJECTIVE: PHYSICAL EXAM: Temp: [36.4 C (97.5 F)-36.8 C (98.2 F)] 36.8 C (98.2 F) Pulse: [48-81] 69 Resp: [12-16] 12 BP: (119-180)/(62-88) 119/62 mmHg General: woman appearing stated age in no acute distress CV: RRR Resp: CTAB Abd: S, NT, Nd Ext: no edema in lower ext. Right forearm and wrist is mildly swollen, erythematous, and t libertad to palpation. By patient report this is improved Neuro: AAOx3, no focal deficits noted during interview or exam Psych: normal mood and affect, calm and cooperative 24 HOUR LABS: Lab Results Component Value Date WBC 17.4* 12/27/2014 HGB 12.3 12/27/2014 HCT 36.2 12/27/2014 MCV 81.0 12/27/2014 PLT 329 12/27/2014 Lab Results Component Value Date CREA 0.57 12/27/2014 BUN 8 12/27/2014 NA 135 12/27/2014 K 3.2* 12/27/2014 CL 106 12/27/2014 CO2 23 12/27/2014 I spent 35 minutes with the patient and on the patient's unit, with over 50% spent in couns eling and/or coordination of care. Electronically signed by: Balta Fuentes MD 12/27/2014 9:33 Portions of this chart may have been created with PhotoRocket voice recognition software. Occasi onal wrong-word or sound-alike substitutions may have occurred due to the inherent meyers itations of voice recognition software. Please read the chart carefully and recognize, using context, where these substitutions have occurred Sherrie Quintanilla, PharmD - 12/27/2014 2:48 AM PDTFormatting of this note might be different from solange barry. [facility] Progress Note VANCOMYCIN PER PHARMACY PROTOCOL: Day # 1 Smitha Pichardo is a 59 y.o. female receiving vancomycin Assessment/Plan: 1. Continue vancomycin 1gram (~15 mg/kg) IVPB every 12 hours 2. Vancomycin trough level ordered prior to 4th dose, due 12/28 1230 3. Pharmacy to monitor daily and adjust dosage per protocol Subjective/Objective: Min/Max Temp past 24 hours:Temp Av.4 C (97.5 F) Min: 36.4 C (97.5 F) Max: 3 6.4 C (97.5 F) Recent Labs Lab 12/26/14205212/26/142051 WBC -- 25.3* CREA 0.50 -- BUN 8 -- Estimated Creatinine Clearance: 121 mL/min (based on Cr of 0.5). Per P&T-approved Vancomycin Protocol Electronically signed by: Sherrie Bell PHARMD 12/27/2014 2:48 documented in this encounter Plan of Treatment +--------+---------+ + + + | Date | Type | Specialty | Care Team | Description | +--------+---------+ + + + | 10/28/ | Office | Cardiology | Carol, | | | 2019 | Visit | | SALVATORE Moreno [address] | | | | | [place], | | | | | | [place] [address] | | | | | | [phone] | | | | | | | | +--------+---------+ + + + documented as of this encounter Procedures + +--------+ + + + | Procedure Name | Priori | Date/Time | Associated Diagnosis | Comments | | | ty | | | | + +--------+ + + + | US GUIDED VASCULAR | Routin | 01/11/2015 | | Results for this | | ACCESS | e | 4:18 PM | | procedure are in the | | | | PDT | | results section. | + +--------+ + + + | CBC NO DIFFERENTIAL | Routin | 12/29/2014 | | Results for this | | | e | 3:42 AM | | procedure are in the | | | | PDT | | results section. | + +--------+ + + + | BASIC METABOLIC | Routin | 12/29/2014 | | Results for this | | PANEL | e | 3:42 AM | | procedure are in the | | | | PDT | | results section. | + +--------+ + + + | VANCOMYCIN, TROUGH | Timed | 12/28/2014 | | Results for this | | | | 12:48 PM | | procedure are in the | | | | PDT | | results section. | + +--------+ + + + | CBC NO DIFFERENTIAL | Routin | 12/28/2014 | | Results for this | | | e | 4:20 AM | | procedure are in the | | | | PDT | | results section. | + +--------+ + + + | BASIC METABOLIC | Routin | 12/28/2014 | | Results for this | | PANEL | e | 4:20 AM | | procedure are in the | | | | PDT | | results section. | + +--------+ + + + | CBC WITH | Routin | 12/27/2014 | | Results for this | | DIFFERENTIAL | e | 5:08 AM | | procedure are in the | | | | PDT | | results section. | + +--------+ + + + | MAGNESIUM | Routin | 12/27/2014 | | Results for this | | | e | 5:08 AM | | procedure are in the | | | | PDT | | results section. | + +--------+ + + + | BASIC METABOLIC | Routin | 12/27/2014 | | Results for this | | PANEL | e | 5:08 AM | | procedure are in the | | | | PDT | | results section. | + +--------+ + + + | CULTURE, BLOOD | STAT | 12/26/2014 | | Results for this | | | | 11:35 PM | | procedure are in the | | | | PDT | | results section. | + +--------+ + + + | CULTURE, BLOOD | STAT | 12/26/2014 | | Results for this | | | | 11:35 PM | | procedure are in the | | | | PDT | | results section. | + +--------+ + + + | URINALYSIS WITH | STAT | 12/26/2014 | | Results for this | | MICROSCOPIC WITH | | 11:16 PM | | procedure are in the | | CULTURE IF INDICATED | | PDT | | results section. | + +--------+ + + + | DRUGS OF ABUSE, | STAT | 12/26/2014 | | Results for this | | SCREEN, URINE | | 11:16 PM | | procedure are in the | | | | PDT | | results section. | + +--------+ + + + | CULTURE, URINE | Routin | 12/26/2014 | | Results for this | | | e | 11:16 PM | | procedure are in the | | | | PDT | | results section. | + +--------+ + + + | XR HAND RIGHT 3 + VW | STAT | 12/26/2014 | | Results for this | | | | 10:35 PM | | procedure are in the | | | | PDT | | results section. | + +--------+ + + + | XR CHEST PA AND | STAT | 12/26/2014 | | Results for this | | LATERAL | | 10:34 PM | | procedure are in the | | | | PDT | | results section. | + +--------+ + + + | LACTIC ACID | STAT | 12/26/2014 | | Results for this | | | | 10:18 PM | | procedure are in the | | | | PDT | | results section. | + +--------+ + + + | COMPREHENSIVE | STAT | 12/26/2014 | | Results for this | | METABOLIC PANEL | | 8:53 PM | | procedure are in the | | | | PDT | | results section. | + +--------+ + + + | EXTRA HOLD TUBE(S) | Routin | 12/26/2014 | | Results for this | | | e | 8:52 PM | | procedure are in the | | | | PDT | | results section. | + +--------+ + + + | CBC NO DIFFERENTIAL | STAT | 12/26/2014 | | Results for this | | | | 8:52 PM | | procedure are in the | | | | PDT | | results section. | + +--------+ + + + | CULTURE, WOUND, | STAT | 12/26/2014 | | Results for this | | SMEAR | | 8:44 PM | | procedure are in the | | | | PDT | | results section. | + +--------+ + + + | ED INFORMATION | Routin | 12/26/2014 | | Results for this | | EXCHANGE | e | 2:58 PM | | procedure are in the | | | | PDT | | results section. | + +--------+ + + + documented in this encounter Results US Guided Vascular Access (01/11/2015 4:18 PM PDT) + + + | Narrative | Performed At | + + + | Abdullahi Palomino MD 01/11/2015 16:18 US - IV Date/Time: | [facility] | | 01/11/2015 16:16 Performed by: ABDULLAHI PALOMINO Authorized by: | | | [facility] | | | MEDICAL Emergency Physician-Performed Ultrasound Report | | | Ultrasound-guided Intravascular Catheter Placement Indication: | | | lack of adequate vascular access - I performed this procedure on | | | 12/28/14 After discussion of the risks, benefits, and alternatives | | | to the procedure, informed consent: Was obtained verbally from the | | | patient prior to the procedure A timeout to verify the correct | | | patient, procedure, and site: Was performed With Sterile | | | technique. A(n) 18 ga. 2.5 inch catheter was placed under direct | | | visualization into the Left basilic vein with good blood return and | | | flush. No complications were noted and the patient tolerated the | | | procedure well. An image with needle in vessel was permanently | | | recorded. This exam is performed by an ultrasound credentialed | | | physician and was used, based on medical necessity, for clinical | | | care. A separate training examination may have been performed but is | | | not included in any documentation of this study. Sand Polisher and | | | Slip Presser: Abdullahi Palomino MD | | + + + + +---------+ + + | Performing | Address | City/State[facility] | Phone Number | | Organization | | | | + +---------+ + + | [facility] | | | | + +---------+ + + Basic Metabolic Panel (12/29/2014 3:42 AM PDT) + + + + + [...] + + + + | K | 3.9 | 3.5 - 5.0 | [facility] | [...] + + + + | Glucose | 95Comment: [place] | 65 - 99 mg/dL | [facility] | | | | [facility] | [...] + + + + | BUN | 9 | 8 - 25 mg/dL | [facility] | | | | | | [facility] | [facility] | | | | | | [facility] | | | | | [facility] | | | | | | LABORATORY | | + + + + + + | Creatinine | 0.57Comment: IDMS | 0.50 - 1.00 | [facility] | | | | traceable creatinine | mg/dL | [facility] | | | | | [facility] | | | | | | [facility] | | | | | | [facility] | | | | | | LABORATORY | | + + + + + + | Calcium | 8.3 (L) | 8.5 - 10.2 | [facility] [...] [facility] | [address] | [place] [address] | | | [facility] | | | | | LABORATORY | | | | + + + + + CBC no Differential (12/29/2014 3:42 AM PDT) + + + + + + | Component | Value | Ref Range | Performed | Pathologist | | | | | At | Signature | + + + + + + | WBC | 5.2 | 3.8 - 11.0 K/uL | [facility] | | | | | | [facility] | [facility] | [facility] | | | | | | [facility] | | | | | | [facility] | | | | | | LABORATORY | | + + + + + + | RBC | 3.95 | 3.70 - 5.10 | [facility] | | | | | M/uL | [facility] | | | | | [facility] | | | | | | [facility] | | | | | | [facility]ENTER | | | | | | LABORATORY | | + + + + + + | Hemoglobin | 10.8 (L) | 11.3 - 15.5 | [facility] | | | | | g/dL | [facility] | | [facility] | | | | | | [facility] | | | | | | [facility]ENTER | | | | | | LABORATORY | | + + + + + + | Hematocrit | 33.1 (L) | 34.0 - 46.0 % | [facility] | | | | | | [facility] | | | | | [facility] | | | | | | [facility] | | | | | | LABORATORY | | + + + + + + | MCV | 83.8 | 80.0 - 100.0 fL | [facility] | | | | | | [facility] | [facility] | | | | | | [facility] | | | | | | [facility] | | | | | | LABORATORY | | + + + + + + | MCH | 27.2 | 27.0 - 34.0 pg | [facility] | | [facility] | | [facility] | | | | | | [facility] | | | | | | [facility]ENTER | | | | | | LABORATORY | | + + + + + + | MCHC | 32.5 | 32.0 - 35.5 | [facility] | | | | | g/dL | [facility] | | | | [facility] | | | | | | [facility] | | | | | | CENTER | | | | | | LABORATORY | | + + + + + + | RDW-CV | 14.8 | 11.0 - 15.5 % | [facility] | [facility] | | | | | [facility] | | | | | | [facility]ENTER | | | | | | LABORATORY | | + + + + + + | Platelet | 329 | 150 - 400 K/uL | [facility] [...] + | [facility] | [address] | [place] [address] | | | [facility] | | | | | LABORATORY | | | | + + + + + Vancomycin, Trough (12/28/2014 12:48 PM PDT) + +---------+ + + + | Component | Value | Ref Range | Performed | Pathologist | | | | | At | Signature | + +---------+ + + + | Vancomycin | 9.1 (L) | 10 - 20 ug/mL | [facility] [...] + + + + + | IYNE BRENDAN | [address] | [place] [address] | | | [facility] | | | | | LABORATORY | | | | + + + + + Basic Metabolic Panel (12/28/2014 4:20 AM PDT) + + + + + [...] + + + + | K | 3.9 | 3.5 - 5.0 | [facility] | [...] + + + + | Glucose | 98Comment: [place] | 65 - 99 mg/dL | [facility] [...] + + + + | Calcium | 8.1 (L) | 8.5 - 10.2 | [facility] | | | | | mg/dL | [facility] | [facility] | | [facility] | | | | | | MED[facility] | | | | | | [facility]ENTER | | | | | | LABORATORY | | + + + + + + | Anion Gap | 4 (L) | 5 - 16 mmol/L | [...] + | YARELISDEMIEligio [facility] | [address] | [place] [address] | | | [facility] | | | | | LABORATORY | | | | + + + + + CBC no Differential (12/28/2014 4:20 AM PDT) + + + + + + | Component | Value | Ref Range | Performed | Pathologist | | | | | At | Signature | + + + + + + | WBC | 6.2 | 3.8 - 11.0 K/uL | [facility] | | [facility] | | [facility] | [facility] | | | | | | MED[facility] | | | | | | CENTER | | | | | | LABORATORY | | + + + + + + | RBC | 4.02 | 3.70 - 5.10 | [facility] | | | | | M/uL | [facility] | | | | | | [facility] | | | | | | MEDICAL | | | | | | CENTER | | | | | | LABORATORY | | + + + + + + | Hemoglobin | 11.1 (L) | 11.3 - 15.5 | [facility] | | | | | g/dL | [facility] | | | | | | [facility] | | | | | | MEDICAL | | | | | | CENTER | | | | | | LABORATORY | | + + + + + + | Hematocrit | 32.7 (L) | 34.0 - 46.0 % | [facility] | | [facility] | [facility] | [facility] | [facility] | | | | | | [facility] | | | | | | CENTER | | | | | | LABORATORY | | + + + + + + | MCV | 81.4 | 80.0 - 100.0 fL | [facility] | | | | | [facility] | [facility] | | | | | | [facility] | | | | | | CENTER | | | | | | LABORATORY | | + + + + + + | MCH | 27.6 | 27.0 - 34.0 pg | [facility] [...] + + + + | Platelet | 301 | 150 - 400 K/uL | [facility] [...] [facility] | [address] | [place] [address] | | | [facility] | | | | | LABORATORY | | | | + + + + + Magnesium (12/27/2014 5:08 AM PDT) + +-------+ + + + | Component | Value | Ref Range | Performed | Pathologist | | | | | At | Signature | + +-------+ + + + | Magnesium | 1.8 | 1.7 - 2.4 mg/dL | [facility] | | | | [...] + + | PROVIDEDEMIE BRENDAN | [address] | [place] [address] | | | [facility] | | | | | LABORATORY | | | | + + + + + CBC with Differential (12/27/2014 5:08 AM PDT) + + + + + + | Component | Value | Ref Range | Performed | Pathologist | | | | | At | Signature | + + + + + + | WBC | 17.4 (H) | 3.8 - 11.0 K/uL | [facility] | | [facility] | | [facility] | | | | | [facility] | | | | | | MEDICAL | | | | | | CENTER | | | | | | LABORATORY | | + + + + + + | RBC | 4.47 | 3.70 - 5.10 | [facility] | | | | | M/uL | [facility] | | | | | | HE[facility] | | | | | | MEDICAL | | | | | | CENTER | | | | | | LABORATORY | | + + + + + + | Hemoglobin | 12.3 | 11.3 - 15.5 | [facility] | | | | | g/dL | [facility] | | | | | | [facility] | | | | | | MEDICAL | | | | | | CENTER | | | | | | LABORATORY | | + + + + + + | Hematocrit | 36.2 | 34.0 - 46.0 % | [facility] | | | | | | [facility] | | [facility] | | [facility] | | | | | | [facility] | | | | | | CENTER | | | | | | LABORATORY | | + + + + + + | MCV | 81.0 | 80.0 - 100.0 fL | [facility] | | | | | | [facility] | | [facility] | | [facility] | | | | | | [facility] | | | | | | CENTER | | | | | | LABORATORY | | + + + + + + | MCH | 27.5 | 27.0 - 34.0 pg | [facility] [...] + + + + | RDW-CV | 14.2 | 11.0 - 15.5 % | [facility] | | | | | [facility] | [facility] | | [facility] | | | | | | MEDICAL | | | | | | CENTER | | | | | | LABORATORY | | + + + + + + | Platelet | 329 | 150 - 400 K/uL | [facility] [...] + + + + | % | 86.5 (H) | 40.0 - 75.0 % | [facility] | | | Neutrophils | | | [facility] | | | | | | HE[facility] | | | | | | MEDICAL | | | | | | CENTER | | | | | | LABORATORY | | + + + + + + | % | 8.3 (L) | 15.0 - 48.0 % | [facility] | | | Lymphocytes | | | [facility] | | | | | | HEART | | | | | | MEDICAL | | | | | | CENTER | | | | | | LABORATORY | | + + + + + + | % Monocytes | 4.4 | 0.0 - 12.0 % | [facility] [...] + + + + | Absolute | 15.10 (H) | 1.90 - 7.40 | [facility] | | | Neutrophils | | K/uL | [facility] | | | | | | HE[facility] | | | | | | MEDICAL | | | | | | CENTER | | | | | | LABORATORY | | + + + + + + | Absolute | 1.40 | 1.00 - 3.90 | [facility] | | | Lymphocytes | | K/uL | [facility] | | | | | | HE[facility] | | | | | | MEDICAL | | | | | | CENTER | | | | | | LABORATORY | | + + + + + + | Absolute | 0.80 | 0.00 - 0.80 | [facility] | [...] + + | [facility] | [address] | [place] [address] | | | [facility] | | | | | LABORATORY | | | | + + + + + Basic Metabolic Panel (12/27/2014 5:08 AM PDT) + + + + + [...] + + + + | K | 3.2 (L) | 3.5 - 5.0 | [facility] [...] 23 | 21 - 28 mmol/L | [facility] | | | | | | [facility] | | | | | | HE[facility] | | | | | | MEDICAL | | | | | | CENTER | | | | | | LABORATORY | | + + + + + + | Glucose | 102 (H)Comment: [place] | 65 - 99 mg/dL | [facility] | | | | Diabetes Association [...] + + + + | Creatinine | 0.57Comment: IDMS | 0.50 - 1.00 | [facility] [...] + + | [facility] | [address] | [place] [address] | | | [facility] | | | | | LABORATORY | | | | + + + + + Culture, Blood (12/26/2014 11:35 PM PDT) + + + + + + | Component | Value | Ref Range | Performed | Pathologist | | | | | At | Signature | + + + + + + | Specimen | Blood LH | | [facility] | | | Source [...] + + + + | Status | 01/01/2015 Final | | [facility] | | | [...] + | [facility] | [address] | [place] [address] | | | [facility] | | | | | LABORATORY | | | | + + + + + Culture, Blood (12/26/2014 11:35 PM PDT) + + + + + + | Component | Value | Ref Range | Performed | Pathologist | | | | | At | Signature | + + + + + + | Specimen | Blood L AXILLARY | | [facility] | | | Source [...] [facility] | | | | Cocci resembling Staph | | HEART | | | | (A) | | MEDICAL | | | | | | CENTER | | | | | | LABORATORY | | + + + + + + | RESULT | RESULTS CALLED TO BERNICE Davalos | | [facility] | | | | ON 7N ON 12.28.14 AT | | [facility] | | | | [id number] | | HEART | | | | | | MEDICAL | | | | | | CENTER | | | | | | LABORATORY | | + + + + + + | RESULT | CULTURE RESULT: | | [facility] | | | | Staphylococcus Coagulase | | [facility] | | | | Negative (A) | | HEART | | | | | | MEDICAL | | | | | | CENTER | | | | | | LABORATORY | | + + + + + + | RESULT | 1 of 2 total sets of | | [facility] | | | | blood cultures are | | [facility] | | | | positive to date with | | HEART | | | | this organism. This | | MEDICAL | | | | suggests the possibility | | CENTER | | | | that this organism | | LABORATORY | | | | represents a skin | | | | | | contaminant. | | | | + + + + + + | Status | 12/29/2014 Final | | [facility] | | | [...] + + | [facility] | [address] | [place] [address] | | | [facility] | | | | | LABORATORY | | | | + + + + + Culture, Urine (12/26/2014 11:16 PM PDT) + + + + + [...] + + + + | Status | 12/28/2014 Final | | [facility] | | | | | | [facility] [...] + | [facility] | [address] | [place] [address] | | | [facility] | | | | | LABORATORY | | | | + + + + + Urinalysis with Microscopic with Culture if Indicated (12/26/2014 11:16 PM PDT) + + + + + [...] + + + + | Ketones, | 20 (A) | Negative mg/dL | [facility] | | | Urine | | | [facility] | | | | | | HEART | | | | | | MEDICAL | | | | | | CENTER | | | | | | LABORATORY | | + + + + + + | Specific | 1.010 | 1.001 - 1.030 | [facility] | | | [facility] | | | [facility] | | | | | | HEART | | | | | | MEDICAL | | | | | | CENTER | | | | | | LABORATORY | | + + + + + + | pH, Urine | 8.0 (H) | 5.0 - 7.5 | [facility] | [...] + + + + | Urobilinoge | 4.0 (H) | <2.0 mg/dL | [facility] | | [...] + + + | WBC UA | 5 | <6 /hpf | [facility] | | | | | | [facility] | | | | | | HE[facility] | | | | | | MEDICAL | | | | | | CENTER | | | | | | LABORATORY | | + + + + + + | RBC UA | 6 (H) | <6 /hpf | [facility] | | | | | | [facility] | | | | | | HE[facility] | | | | | | MEDICAL | | | | | | CENTER | | | | | | LABORATORY | | + + + + + + | BACTERIA UA | Present | /hpf | [facility] | | | [...] + + | [facility] | [address] | [place] [address] | | | [facility] | | | | | LABORATORY | | | | + + + + + Drugs of Abuse, Screen, Urine (12/26/2014 11:16 PM PDT) + + + + + [...] + | AM[facility] C[facility] | [address] | [place] [address] | | | [facility] | | | | | LABORATORY | | | | + + + + + XR Hand Right 3 + Vw (12/26/2014 10:35 PM PDT) + + | Specimen | + + | | + + + + + | Narrative | Performed At | + + + | HAND THREE VIEWS CLINICAL INFORMATION: Right hand pain | [facility] | | and swelling after getting scratched cleaning chicken coup. | | | COMPARISON: None. FINDINGS: No acute fracture dislocation. No | | | significant arthropathy. No bony erosions or periosteal reaction. | | | Bone mineralization is normal. There is soft tissue swelling over the | | | dorsum of the hand. IMPRESSION: Dorsal soft tissue swelling. No | | | acute osseous findings. | | + + + + + | Procedure Note | + + | Tmi, Rad Results In - 12/26/2014 10:46 PM PDT | | | | HAND THREE VIEWS | | | | CLINICAL INFORMATION: | | Right hand pain and swelling after getting scratched cleaning chicken | | coup. | | | | COMPARISON: | | None. | | | | FINDINGS: | | No acute fracture dislocation. No significant arthropathy. No bony | | erosions or periosteal reaction. Bone mineralization is normal. There | | is soft tissue swelling over the dorsum of the hand. | | | | IMPRESSION: | | Dorsal soft tissue swelling. No acute osseous findings. | + + + +---------+ + + | Performing | Address | City/State/Zipcode | Phone Number | | Organization | | | | + +---------+ + + | [facility] | | | | + +---------+ + + XR Chest PA and Lateral (12/26/2014 10:34 PM PDT) + + | Specimen | + + | | + + + + + | Narrative | Performed At | + + + | CHEST TWO VIEW CLINICAL INFORMATION: Shortness of breath | [facility] | | COMPARISON: 01/22/2011. FINDINGS: The lungs are | | | well-expanded. The heart size is normal. The descending thoracic | | | aorta is tortuous. No pulmonary vascular congestion or evidence of | | | overt pulmonary edema. No pleural effusions or pneumothorax. No acute | | | osseous findings. IMPRESSION: No evidence of an acute | | | cardiopulmonary process. | | + + + + + | Procedure Note | + + | Tim, Rad Results In - 12/26/2014 10:44 PM PDT | | | | CHEST TWO VIEW | | | | CLINICAL INFORMATION: | | Shortness of breath | | | | COMPARISON: | | 01/22/2011. | | | | FINDINGS: | | The lungs are well-expanded. The heart size is normal. The descending | | thoracic aorta is tortuous. No pulmonary vascular congestion or | | evidence of overt pulmonary edema. No pleural effusions or | | pneumothorax. No acute osseous findings. | | | | IMPRESSION: | | No evidence of an acute cardiopulmonary process. | + + + +---------+ + + | Performing | Address | City/State/Zipcode | Phone Number | | Organization | | | | + +---------+ + + | [facility] | | | | + +---------+ + + Lactic Acid (12/26/2014 10:18 PM PDT) + +-------+ + + + [...] + | AMIL[facility] CARDONA | [address] | [place] [address] | | | [facility] | | | | | LABORATORY | | | | + + + + + Comprehensive Metabolic Panel (12/26/2014 8:53 PM PDT) + + + + + + | Component | Value | Ref Range | Performed | Pathologist | | | | | At | Signature | + + + + + + | Na | 129 (L) | 135 - 145 | [facility] | | | | | mmol/L | [facility] | | | | | | HEART | | | | | | MEDICAL | | | | | | CENTER | | | | | | LABORATORY | | + + + + + + | K | 3.8 | 3.5 - 5.0 | [facility] | [...] + + | Glucose | 112 (H)Comment: [place] | 65 - 99 mg/dL | [facility] [...] + + + + | Creatinine | 0.50Comment: IDMS | 0.50 - 1.00 | [facility] | | | | traceable creatinine | mg/dL | [facility] | | | | | | HEART | | | | | | MEDICAL | | | | | | CENTER | | | | | | LABORATORY | | + + + + + + | Calcium | 9.3 | 8.5 - 10.2 | [facility] | | | | | mg/dL | [facility] | | | | | | HEART | | | | | | MEDICAL | | | | | | CENTER | | | | | | LABORATORY | | + + + + + + | Total | 7.5 | 6.1 - 7.8 g/dL | [facility] | | | Protein | | | [facility] | | | | | | HEART | | | | | | MEDICAL | | | | | | CENTER | | | | | | LABORATORY | | + + + + + + | Albumin | 3.7 | 3.3 - 4.8 g/dL | [facility] | | | | | | [facility] | | | | | | HE[facility] | | | | | | MEDICAL | | | | | | CENTER | | | | | | LABORATORY | | + + + + + + | Bilirubin | 0.7 | 0.2 - 1.1 mg/dL | [facility] | | | Total | | | [facility] | | | | | | HEART | | | | | | MEDICAL | | | | | | CENTER | | | | | | LABORATORY | | + + + + + + | Alkaline | 193 (H) | 35 - 115 U/L | [facility] | | | Phosphatase | | | [facility] | | | | | | HEART | | | | | | MEDICAL | | | | | | CENTER | | | | | | LABORATORY | | + + + + + + | AST | 23Comment: Specimen | 10 - 45 U/L | [facility] | | | | hemolyzed, results may | | [facility] | | | | be affected. | | HEART | | | | | | MEDICAL | | | | | | CENTER | | | | | | LABORATORY | | + + + + + + | ALT | 13 | 10 - 65 U/L | [facility] [...] + | [facility] | [address] | [place] [address] | | | [facility] | | | | | LABORATORY | | | | + + + + + Extra Hold Tube(s) (12/26/2014 8:52 PM PDT) + +---------+ + + + | Component | Value | Ref Range | Performed | Pathologist | | | | | At | Signature | + +---------+ + + + | Extra Tube | PST,JOANIE | | [facility] | | | | [...] + + | [facility] | [address] | [place] [address] | | | [facility] | | | | | LABORATORY | | | | + + + + + CBC no Differential (12/26/2014 8:52 PM PDT) + + + + + + | Component | Value | Ref Range | Performed | Pathologist | | | | | At | Signature | + + + + + + | WBC | 25.3 (H) | 3.8 - 11.0 K/uL | [facility] | | | | | | [facility] | | | | | | HE[facility] | | | | | | MEDICAL | | | | | | CENTER | | | | | | LABORATORY | | + + + + + + | RBC | 4.99 | 3.70 - 5.10 | [facility] | | | | | M/uL | [facility] | | | | | | HEART | | | | | | MEDICAL | | | | | | CENTER | | | | | | LABORATORY | | + + + + + + | Hemoglobin | 13.4 | 11.3 - 15.5 | [facility] | | | | | g/dL | [facility] | | | | | | HEART | | | | | | MEDICAL | | | | | | CENTER | | | | | | LABORATORY | | + + + + + + | Hematocrit | 40.6 | 34.0 - 46.0 % | [facility] | | | | | | [facility] | | | | | | HE[facility] | | | | | | MEDICAL | | | | | | CENTER | | | | | | LABORATORY | | + + + + + + | MCV | 81.4 | 80.0 - 100.0 fL | [facility] | | | | | | [facility] | | | | | | [facility] | | | | | | MEDICAL | | | | | | CENTER | | | | | | LABORATORY | | + + + + + + | MCH | 26.9 (L) | 27.0 - 34.0 pg | [facility] [...] + + + + | Platelet | 400 | 150 - 400 K/uL | [facility] [...] + | Y[facility]EL[facility]CARLOS [facility] | [address] | [place] [address] | | | [facility] | | | | | LABORATORY | | | | + + + + + Culture, Wound, Smear (12/26/2014 8:44 PM PDT) + + + + + + | Component | Value | Ref Range | Performed | Pathologist | | | | | At | Signature | + + + + + + | Specimen | Wrist | | [facility] | | | Source [...] | | MEDICAL | | | | Strep=====CULTURE | | CENTER | | | | RESULTS===== | | LABORATORY | | + + [...] RESULT | Results called to: | | [facility] | | | | CARLOS Morocho ON [address]N AT 1741 | | [facility] | | | | ON 12/27/2014 | | HEART | | | | [...] + + + + | Status | 12/28/2014 Final | | [facility] | | | | | | [facility] | | | | | | [facility] | | | | | | MEDICAL | | | | | | CENTER | | | | | | LABORATORY | | + + + + + + + + | Specimen | + + | Specimen from wound | | (specimen) - Abscess | + + + + + + + | Performing | Address | City/State/Zipcode | Phone Number | | Organization | | | | + + + + + | [facility] | [address] | [place] [address] | | | [facility] | | | | | LABORATORY | | | | + + + + + ED INFORMATION EXCHANGE (12/26/2014 2:58 PM PDT) + + | Specimen | + + | | + + + + + | Narrative | Performed At | + + + | VISIT TRACKING (3 MO.) Visit Date Location | [facility] | | Type Diagnoses | | | -------- ---- | | | 12/26/2014 14:58 [facility] | | | Emergency -3 Skin Problem VISIT COUNT (1 YR.) Visits | | | Medicaid [place] Dx Location ------ | | | --------- 2 0 [facility] | | | Center 1 0 [facility] | | | Center 1 0 | | | 4 0 Total Note: Visits | | | indicate total known visits. [place] Dx are the number of primary | | | diagnoses on the [facility]'s non-emergent dx list. | | | | | | --- Guidelines Source: Guidelines Date: | | | 09/06/2013 Care Recommendation: Care at [facility] | | | Health Past Medical & [...] , disabled, person to | | | notify Miriam Cruz, daughter | | + + + + +---------+ + + | Performing | Address | City/State/Zipcode | Phone Number | | Organization | | | | + +---------+ + + | [facility] | | | | + +---------+ + + documented in this encounter Visit Diagnoses + + | Diagnosis | + + | Cellulitis and abscess - Primary Cellulitis and abscess of unspecified site | + + | Leukocytosis Leukocytosis, unspecified | + + | Hyponatremia Hyposmolality and/or hyponatremia | + + | Coronary atherosclerosis of unspecified type of vessel, kluti kaah or graft | + + | Bradycardia Other specified cardiac dysrhythmias | + + | Unspecified essential hypertension | + + | ASHD (arteriosclerotic heart disease) Coronary atherosclerosis of unspecified type of | | vessel, kl[place] ka[place] or graft | + + | Hypertension Unspecified essential hypertension | + + documented in this encounter Administered Medications + +---------+ +------+-------+------+ | Medication Order | MAR | Action | Dose | Rate | Site | | | Action | Date | | | | + +---------+ +------+-------+------+ | ampicillin-sulbactam (UNASYN) 3 | New Bag | 12/27/19 | 3 g | 200 | | | g in sodium chloride 0.9% 100 mL | | 15 11:33 | | mL/hr | | | IVPB 3 g, Intravenous, | | PM PDT | | | | | Administer over 30 Minutes, ONCE, | | | | | | | 12/26/14 at 2130, For 1 dose, | | | | | | | Activate system and mix before | | | | | | | use., | | | | | | + +---------+ +------+-------+------+ +---+---+ | | | +---+---+ + +---------+ +-----+-------+---+ | ampicillin-sulbactam (UNASYN) 3 | New Bag | 12/30/19 | 3 g | 200 | | | g in sodium chloride 0.9% 100 mL | | 15 6:12 | | mL/hr | | | IVPB 3 g, Intravenous, | | AM PDT | | | | | Administer over 30 Minutes, EVERY | | | | | | | 6 HOURS (4 times per day), First | | | | | | | dose (after last reorder) on Fri | | | | | | | 12/27/14 at 0600, Activate system | | | | | | | and mix before use., | | | | | | + +---------+ +-----+-------+---+ +---------+ +-----+-------+---+ | New Bag | 12/29/19 | 3 g | 200 | | | | 15 11:39 | | mL/hr | | | | PM PDT | | | | +---------+ +-----+-------+---+ | New Bag | 12/29/19 | 3 g | 200 | | | | 15 5:50 | | mL/hr | | | | PM PDT | | | | +---------+ +-----+-------+---+ +---+---+ | | | +---+---+ + +-------+ +-------+---+---+ | aspirin EC tablet 81 mg 81 mg, | Given | 12/30/19 | 81 mg | | | | Oral, DAILY, First dose on Fri | | 15 8:14 | | | | | 12/27/14 at 0900, Do not cut or | | AM PDT | | | | | crush., | | | | | | + +-------+ +-------+---+---+ +-------+ +-------+---+---+ | Given | 12/29/19 | 81 mg | | | | | 15 9:15 | | | | | | AM PDT | | | | +-------+ +-------+---+---+ | Given | 12/28/19 | 81 mg | | | | | 15 10:56 | | | | | | AM PDT | | | | +-------+ +-------+---+---+ +---+---+ | | | +---+---+ + +-------+ +-------+---+---+ | atorvaSTATin (LIPITOR) tablet | Given | 12/29/19 | 40 mg | | | | 40 mg 40 mg, Oral, NIGHTLY, | | 15 8:27 | | | | | First dose on Fri12/27/14 at 0300 | | PM PDT | | | | + +-------+ +-------+---+---+ +-------+ +-------+---+---+ | Given | 12/28/19 | 40 mg | | | | | 15 9:32 | | | | | | PM PDT | | | | +-------+ +-------+---+---+ | Given | 12/28/19 | 40 mg | | | | | 15 11:03 | | | | | | AM PDT | | | | +-------+ +-------+---+---+ +---+---+ | | | +---+---+ + +-------+ +---------+---+---+ | carvedilol (COREG) tablet 6.25 | Given | 12/30/19 | 6.25 mg | | | | mg 6.25 mg, Oral, 2 TIMES DAILY | | 15 8:14 | | | | | WITH BREAKFAST & DINNER, First | | AM PDT | | | | | dose on Fri12/27/14 at 0800, Hold | | | | | | | for heart rate less than 55, | | | | | | + +-------+ +---------+---+---+ +-------+ +---------+---+---+ | Given | 12/29/19 | 6.25 mg | | | | | 15 4:01 | | | | | | PM PDT | | | | +-------+ +---------+---+---+ | Given | 12/29/19 | 6.25 mg | | | | | 15 9:15 | | | | | | AM PDT | | | | +-------+ +---------+---+---+ +---+---+ | | | +---+---+ + +---------+ +-----+-------+---+ | cefTRIAXone (ROCEPHIN) 1 g in | New Bag | 12/30/19 | 1 g | 100 | | | sodium chloride 0.9% 50 mL IVPB | | 15 10:07 | | mL/hr | | | 1 g, Intravenous, Administer over | | AM PDT | | | | | 30 Minutes, EVERY 24 HOURS | | | | | | | (Daily), First dose on Marycarmen | | | | | | | 12/29/14 at 1000, Activate system | | | | | | | and mix before use., | | | | | | + +---------+ +-----+-------+---+ +---+---+ | | | +---+---+ + +-------+ +-------+---+ + | enoxaparin (LOVENOX) 40 mg/0.4 | Given | 12/30/19 | 40 mg | | Abdomen- | | mL injection 40 mg 40 mg, | | 15 8:14 | | | RUQ | | Subcutaneous, EVERY 24 HOURS | | AM PDT | | | | | (Daily), First dose on Tue | | | | | | | 12/27/14 at 0900 | | | | | | + +-------+ +-------+---+ + +-------+ +-------+---+ + | Given | 12/29/19 | 40 mg | | Abdomen- | | | 15 9:15 | | | RLQ | | | AM PDT | | | | +-------+ +-------+---+ + | Given | 12/28/19 | 40 mg | | Abdomen- | | | 15 10:56 | | | LLQ | | | AM PDT | | | | +-------+ +-------+---+ + +---+---+ | | | +---+---+ + +-------+ +-------+---+---+ | FLUoxetine (PROzac) capsule 20 | Given | 12/30/19 | 20 mg | | | | mg 20 mg, Oral, DAILY, First | | 15 8:14 | | | | | dose on Tu12/27/14 at 0900 | | AM PDT | | | | + +-------+ +-------+---+---+ +-------+ +-------+---+---+ | Given | 12/29/19 | 20 mg | | | | | 15 9:15 | | | | | | AM PDT | | | | +-------+ +-------+---+---+ | Given | 12/28/19 | 20 mg | | | | | 15 10:58 | | | | | | AM PDT | | | | +-------+ +-------+---+---+ +---+---+ | | | +---+---+ + +-------+ + +---+---+ | HYDROcodone-acetaminophen | Given | 12/28/19 | 1 tablet | | | | (NORCO) 10-325 mg per tablet 1 | | 15 2:57 | | | | | tablet 1 tablet, Oral, ONCE, Mon | | AM PDT | | | | | 12/26/14 at 2345, For 1 dose | | | | | | + +-------+ + +---+---+ +---+---+ | | | +---+---+ + +-------+ +---------+---+---+ | HYDROcodone-acetaminophen | Given | 12/30/19 | 2 | | | | (NORCO) 5-325 mg per tablet 1-2 | | 15 1:01 | tablets | | | | tablet 1-2 tablet, Oral, EVERY 4 | | PM PDT | | | | | HOURS PRN, Pain, Starting Tue | | | | | | | 12/27/14 at 0239, If ineffective | | | | | | | use [place] 10/325 if ordered. If | | | | | | | not tolerated, use Percocet then | | | | | | | Oxycodone if ordered., | | | | | | + +-------+ +---------+---+---+ +-------+ +---------+---+---+ | Given | 12/30/19 | 2 | | | | | 15 8:14 | tablets | | | | | AM PDT | | | | +-------+ +---------+---+---+ | Given | 12/30/19 | 2 | | | | | 15 4:37 | tablets | | | | | AM PDT | | | | +-------+ +---------+---+---+ +---+---+ | | | +---+---+ + +-------+ +------+---+---+ | HYDROmorphone (DILAUDID) | Given | 12/27/19 | 1 mg | | | | injection 1 mg 1 mg, | | 15 11:23 | | | | | Intravenous, EVERY 1 HOUR PRN, | | PM PDT | | | | | Pain, Starting 12/26/14 at | | | | | | | 2240 | | | | | | + +-------+ +------+---+---+ +---+---+ | | | +---+---+ + +-------+ +-------+---+---+ | hydrOXYzine hydrochloride | Given | 12/29/19 | 25 mg | | | | (ATARAX) tablet 25 mg 25 mg, | | 15 8:29 | | | | | Oral, NIGHTLY PRN, Itching, | | PM PDT | | | | | Anxiety, Starting 12/27/14 at | | | | | | | 0239 | | | | | | + +-------+ +-------+---+---+ +---+---+ | | | +---+---+ + +-------+ +---------+---+ + | influenza (FLUARIX, FLUZONE) | Given | 12/28/19 | 0.5 mLs | | Deltoid- | | vaccine injection 0.5 mL 0.5 mL, | | 15 11:04 | | | Left | | Intramuscular, ONE TIME VACCINE, | | AM PDT | | | | | 12/27/14 at 0300, For 1 dose, | | | | | | | Give patient education | | | | | | | information. FLUARIX BRAND | | | | | | | CONTAINS LATEX. Screen for latex | | | | | | | allergy before administration of | | | | | | | FLUARIX. FLUZONE BRAND IS | | | | | | | LATEX-FREE. Shake prior to use., | | | | | | + +-------+ +---------+---+ + +---+---+ | | | +---+---+ + +-------+ +-------+---+---+ | lisinopril (PRINIVIL, ZESTRIL) | Given | 12/29/19 | 10 mg | | | | tablet 10 mg 10 mg, Oral, DAILY, | | 15 9:15 | | | | | First dose on Fri12/27/14 at | | AM PDT | | | | | 0900 | | | | | | + +-------+ +-------+---+---+ +-------+ +-------+---+---+ | Given | 12/28/19 | 10 mg | | | | | 15 10:56 | | | | | | AM PDT | | | | +-------+ +-------+---+---+ +---+---+ | | | +---+---+ + +-------+ +-------+---+---+ | lisinopril (PRINIVIL, ZESTRIL) | Given | 12/30/19 | 20 mg | | | | tablet 20 mg 20 mg, Oral, DAILY, | | 15 8:14 | | | | | First dose (after last | | AM PDT | | | | | modification) on [facility] 12/29/14 at | | | | | | | 0900 | | | | | | + +-------+ +-------+---+---+ +---+---+ | | | +---+---+ + +-------+ +------+---+---+ | ondansetron (ZOFRAN) injection | Given | 12/27/19 | 4 mg | | | | 4 mg 4 mg, Intravenous, ONCE, | | 15 11:23 | | | | | 12/26/14 at 2315, For 1 dose | | PM PDT | | | | + +-------+ +------+---+---+ +---+---+ | | | +---+---+ + +-------+ +------+---+---+ | ondansetron (ZOFRAN) injection | Given | 12/28/19 | 4 mg | | | | 4 mg 4 mg, Intravenous, EVERY 6 | | 15 5:30 | | | | | HOURS PRN, Nausea, Vomiting, | | PM PDT | | | | | Starting e 12/27/14 at 0239, | | | | | | | First line agent, | | | | | | + +-------+ +------+---+---+ +---+---+ | | | +---+---+ + +-------+ +--------+---+---+ | potassium chloride (K-DUR) ER | Given | 12/28/19 | 40 mEq | | | | tablet 40 mEq 40 mEq, Oral, | | 15 11:04 | | | | | ONCE, [facility] 12/27/14 at 0745, For 1 | | AM PDT | | | | | dose, Tablet may be cut where | | | | | | | scored but do not crush., | | | | | | + +-------+ +--------+---+---+ +---+---+ | | | +---+---+ + +-------+ +--------+---+---+ | QUEtiapine (SEROquel) tablet | Given | 12/29/19 | 100 mg | | | | 100 mg 100 mg, Oral, NIGHTLY, | | 15 8:27 | | | | | First dose on Fri12/27/14 at 0300 | | PM PDT | | | | + +-------+ +--------+---+---+ +-------+ +--------+---+---+ | Given | 12/28/19 | 100 mg | | | | | 15 9:32 | | | | | | PM PDT | | | | +-------+ +--------+---+---+ | Given | 12/28/19 | 100 mg | | | | | 15 2:58 | | | | | | AM PDT | | | | +-------+ +--------+---+---+ +---+---+ | | | +---+---+ + +---------+ +--------+-------+---+ | sodium chloride 0.9% (NS) bolus | New Bag | 12/27/19 | 1,000 | 1000 | | | 1,000 mL 1,000 mL, Intravenous, | | 15 10:37 | mLs | mL/hr | | | Administer over 1 Hours, ONCE, | | PM PDT | | | | | 12/26/14 at 1945, For 1 dose | | | | | | + +---------+ +--------+-------+---+ +---+---+ | | | +---+---+ + +---------+ +---+ +---+ | sodium chloride 0.9% (NS) | New Bag | 12/28/19 | | 75 mL/hr | | | infusion at 75 mL/hr, | | 15 2:00 | | | | | Intravenous, CONTINUOUS, Starting | | AM PDT | | | | | 12/27/14 at 0300, For 13 | | | | | | | hours, For 1 liter then stop, | | | | | | + +---------+ +---+ +---+ +---+---+ | | | +---+---+ + +-------+ +--------+---+---+ | traMADol (ULTRAM) tablet 50-100 | Given | 12/30/19 | 100 mg | | | | mg 50-100 mg, Oral, EVERY 4 | | 15 1:02 | | | | | HOURS PRN, Pain, Starting Tue | | PM PDT | | | | | 12/27/14 at 0239 | | | | | | + +-------+ +--------+---+---+ +-------+ +--------+---+---+ | Given | 12/30/19 | 100 mg | | | | | 15 8:14 | | | | | | AM PDT | | | | +-------+ +--------+---+---+ | Given | 12/30/19 | 100 mg | | | | | 15 4:37 | | | | | | AM PDT | | | | +-------+ +--------+---+---+ +---+---+ | | | +---+---+ + + + +-----+-------+---+ | vancomycin 1 g in sodium | Restarte | 12/28/19 | 1 g | 250 | | | chloride 0.9% 250 mL IVPB 1 g, | d | 15 12:56 | | mL/hr | | | Intravenous, Administer over 60 | | AM PDT | | | | | Minutes, ONCE, 12/26/14 at | | | | | | | 1945, For 1 dose, Activate system | | | | | | | and mix before use., | | | | | | + + + +-----+-------+---+ +---------+ +-----+-------+---+ | New Bag | 12/28/19 | 1 g | 250 | | | | 15 12:24 | | mL/hr | | | | AM PDT | | | | +---------+ +-----+-------+---+ +---+---+ | | | +---+---+ + +---------+ +-----+-------+---+ | vancomycin 1 g in sodium | New Bag | 12/30/19 | 1 g | 250 | | | chloride 0.9% 250 mL IVPB 1 g, | | 15 1:00 | | mL/hr | | | Intravenous, Administer over 60 | | AM PDT | | | | | Minutes, EVERY 12 HOURS INTERVAL, | | | | | | | First dose on Fri12/27/14 at | | | | | | | 1300, Activate system and mix | | | | | | | before use., | | | | | | + +---------+ +-----+-------+---+ +---------+ +-----+-------+---+ | New Bag | 12/29/19 | 1 g | 250 | | | | 15 1:11 | | mL/hr | | | | PM PDT | | | | +---------+ +-----+-------+---+ | New Bag | 12/29/19 | 1 g | 250 | | | | 15 1:01 | | mL/hr | | | | AM PDT | | | | +---------+ +-----+-------+---+ +---+---+ | | | +---+---+ documented in this encounter
--- OUTSIDE RECORDS SUMMARY | ~2019-09-08 | XMS | Encounter Summary ---
Demographics + + + | Address | [address] | | | [place] [address] | + + + | Home Phone [...] | [facility] | | | and Ankitana | + + + | Organization | [facility] | | | and Ankitana [...] Team Providers + +------+ + | Care Fountain Helper Name | Role | Phone | + +------+ + | Yolanda Lee | PCP | | + +------+ + Encounter Details +--------+ + + + + | Date | Type | Department | Care Team | Description | +--------+ + + + + | 03/03/ | Hospital | [facility] | Jesse Siddiqi MD | Cellulitis and | | 2015 - | Encounter | [facility] | [address], | abscess of hand, | | | | INFUSION [address] | 9th floor [place], | except fingers and | | 03/05/ | | [address] [place], [place] | [place] [address] | thumb; Bacteremia | | 2015 | | [address] | [phone] | due to Streptococcus | | | | [phone] | | / Sepsis | +--------+ + [...] | | | | | | [place] [address] | | | | | | [phone] | | | | | | | [...]
--- OUTSIDE RECORDS SUMMARY | ~2019-09-08 | XMS | Encounter Summary ---
Demographics + + + | Address | [address] | | | [place] [address] | + + + | Home Phone | | + + + | Preferred Language | Unknown | + + + | Marital Status | | + + + | Jehovah'S Witness Affiliation | 1041 | + + + | Race | Unknown | + + + | Ethnic Group | Unknown | + + + Author + + + | Author | [facility] | | | and Ankitana | + + + | Organization | [facility] | [...] Providers + +------+ + | Care Group Art Supervisor Name | Role | Phone | + +------+ + | Yolanda Lee | PCP | | + +------+ + Encounter Details +--------+ + + + + | Date | Type | Department | Care Team | Description | +--------+ + + + + | 03/07/ | Hospital | [facility] | Jesse Siddiqi MD | Cellulitis and | | 2015 | Encounter | [facility] | [address], | abscess of hand, | | | | INFUSION [address] | 9th floor [place], | except fingers and | | | | Ave [place], [place] | [place] [address] | thumb; Bacteremia | | | | [address] | [phone] | due to Streptococcus | | | | [phone] | | / Sepsis | +--------+ + [...] + + + | Blood Pressure | 90/47 | 03/07/2015 5:08 PM | | | | | PDT | | + + + + + | Pulse | 70 | 03/07/2015 5:08 PM | | | | | PDT | | + + + + + | Temperature | 36.9 C (98.5 F) | 03/07/2015 5:08 PM | | | | | PDT | | + + + + + | Respiratory Rate | 16 | 03/07/2015 5:08 PM | | | | | PDT [...] | | | | | | [place] [address] | | | | | | [phone] | | | | | | | [...] 2 g in | New Bag | 03/07/20 | 2 g | 100 | | | sodium chloride 0.9% 50 mL IVPB | | 15 5:04 | | mL/hr | | | 2 g, Intravenous, Administer over | | PM PDT | | | | | 30 Minutes, EVERY 24 HOURS | | | | | | | (Daily), First dose on Fri03/07/15 | | | | | | | at 1720, For 14 days, Keep in | | [...]
--- OUTSIDE RECORDS SUMMARY | ~2019-09-08 | XMS | Encounter Summary ---
Demographics + + + | Address | [address] | | | [place] [address] | + + + | Home Phone | | + + + | Preferred Language | Unknown | + + + | Marital Status | | + + + | Bahai Affiliation | 1041 | + + + | Race | Unknown | + + + | Ethnic Group | Unknown | + + + Author + + + | Author | [facility] | | | and Ankitana | + + + | Organization | [facility] | | | and [...] Team Providers + +------+ + | Care Bass String Winder Name | Role | Phone | + [...] + | 11/24/ | Telephone | [facility] [place] | Carol, | Testing (To see on | | 2018 | | [address] | [address] | [address]ovanni) | | | | [place], | [place], | | | | | [place] [address] | [place] [address] | | | | | [phone] | [phone] | | | | | | | [...] [place], | | | | | | [place] [address] | | | | | | [phone] | | | | | | | | +--------+---------+ + + + documented as of this encounter Visit Diagnoses Not on filedocumented in this encounter"
--- OUTSIDE RECORDS SUMMARY | ~2019-09-08 | XMS | Encounter Summary ---
Demographics + + + | Address | [address] | | | [place] [address] | + + + | Home Phone | | + + + | Preferred Language | Unknown | + + + | Marital Status | | + + + | Cheondoism Affiliation | 1041 | + + + | Race | Unknown | + + + | Ethnic Group | Unknown | + + + Author + + + | Author | [facility] | | | and Ankitana | + + + | Organization | [facility] | [...] Team Providers + +------+ + | Care Special Events Assistant Name | Role | Phone | + +------+ + | Yolanda Lee | PCP | | + +------+ + Encounter Details +--------+ + + + + | Date | Type | Department | Care Team | Description | +--------+ + + + + | 03/12/ | Hospital | [facility] | Jesse Siddiqi MD | | | 2015 | Encounter | [facility] | [address], | | | | | NEUROLOGY [address] | [address] [place] | | | | | [place], [place] | [place] [address] | | | | | [address] | [phone] | | | | | [phone] | | | +--------+ + + + [...] + + + | Blood Pressure | 128/70 | 03/12/2015 4:35 PM | | | | | PDT | | + + + + + | Pulse | 74 | 03/12/2015 4:35 PM | | | | | PDT | | + + + + + | Temperature | 37.6 C (99.6 F) | 03/12/2015 4:35 PM | | | | | PDT | | + + + + + | Respiratory Rate | 17 | 03/12/2015 4:35 PM | | | | | PDT | | + + + + + | Oxygen Saturation | 92% | 03/12/2015 4:35 PM | | | | | PDT | | + + + + + | Inhaled Oxygen | - | - | | | Concentration | | | | + + + + + | Weight | 68 kg (150 lb) | 03/12/2015 4:35 PM | | | | | PDT | | + + + + + | Height | 172.7 cm (5' 8") | 03/12/2015 4:35 PM | | | | | PDT | | + + + + + | Body Mass Index | 22.81 | 03/12/2015 4:35 PM | | | | | PDT [...] [address] | | | | | | [place], | | | | | | [place] [address] | | | | | | [phone] | | | | | | | [...] 2 g in | New Bag | 03/12/20 | 2 g | 100 | | | sodium chloride 0.9% 50 mL IVPB | | 15 4:57 | | mL/hr | | | 2 g, Intravenous, Administer over | | PM PDT | | | | | 30 Minutes, ONCE, Silva 03/12/15 at | | | | | | | 1715, For 1 dose, Activate system | | [...]
--- OUTSIDE RECORDS SUMMARY | ~2019-09-08 | XMS | Encounter Summary ---
Demographics + + + | Address | [address] | | | [place] [address] | + + + | Home Phone [...] + | Author | [facility] | | | and Ankitana | + + + | Organization | [facility] | | [...] Team Providers + +------+ + | Care Treatment Supervisor Name | Role | Phone | [...] | | NEUROLOGY [address] | [place] [address] | (Primary Dx); Closed | | 08/28/ | | [address] [place] | [phone] | pelvic ring | | 2016 | | [address] | | fracture, with | | | | [phone] | Pablo Booth | routine healing, | | | | | Claudia, DO [address] | subsequent | | | | | [address] [place], | encounter; Acute | | | | | [place] [address] | bronchitis, | | | | | [phone] | unspecified | | | | | | organism; Bipolar | | | | | Maite Delacruz MD | affective disorder | | | | | [address] | in remission (HCC); | | | | | [place], [place] | Ischemic | | | | | [address] | cardiomyopathy; | | | | | [...] iron deficiency anemia FOLLOW UP: SALVATORE Ventura [address] [facility] [address] [id number] Go to next available appointment [facility] [address] [facility] [address] DISCHARGE DISPOSITION: Home with Home Health CONSULTANTS THIS ADMISSION: None HOSPITAL COURSE: Ms. Pichardo is a 61-year-old female admitted to [facility] on N ovember 11 for a left inferior and superior pubic rami fractures and a right sacral alar fra cture. She was discharged to home November 15 with home health services and has reportedly done poorly with uncontrolled pain. Home Health staff advised readmission for evaluation for acute inpatient rehabililtation, but she was sent to [facility]. She was de nied admission to [facility]. She was noted to have a marked [...] Unknown Yellow Clarity, UA Unknown Clear Specific Gilbert Latest Ref Range: 1.001-1.030 1.015 PH UA [...] provider to follow patient YOLANDA RICHMOND Ernestine Facing Slitter needed No TIME SPENT ON DISCHARGE: greater than 30 minutes / Observation Stay Electronically signed by: Pablo Booth DO 08/28/2016 18:03Electronically si gned by Pablo Booth DO at 08/28/2016 6:03 PM PSTdocumented in this encount er Discharge Instructions AttachmentsThe following attachments cannot be sent through Care Everywhere.ANEMIA, IRON-DE FICIENCY (ADULT) (HONDURAN)OSTEOPOROSIS, LIVING WITH: PREVENTING FRACTURES (HONDURAN)documente d in this encounter Medications at Time [...] G-D tr. Pt to stay with Dtr Hanna Nash[address] [facility] # [phone]. Electronically signed by: Rhona Ledesma RN 08/27/2016 [...] permission to accep t. SW will follow. ucero Turcios RN - 08/27/2016 3:56 PM PSTPt. Has discharge order, but unable to go due to lack of someone to stay w/ her. Medicare Advance Beneficiary Notice of Noncoverage letter issued. Pt voiced understanding. Copy of letter left in room for pt. ablo Booth DO - 1 10/27/2015 12:37 PM PST Patient: Anne Marie Pichardo Date of : 1955 Admit Date: 08/25/2016 Date of Service: 08/27/2016 PCP: Yolanda Richmond [facility] Hospital Day: Hospital Course: Ms. Pichardo is a 61-year-old female admitted to [facility] on N for a left inferior and superior pubic rami fractures and a right sacral alar fra cture. She was discharged to home August 20 with home health services and has reportedly done poorly with uncontrolled pain. Home Health staff advised readmission for evaluation for acute inpatient rehabililtation, but she was sent to [facility] instead of [facility]. She was noted to have a marked leukocytosis and elevated CRP of unclear significance. Assessment and Plan: Ms. Pichardo's chart was reviewed in detail, and she was seen and examined by me. Assessment of active problems addressed today: Active Hospital Problems Diagnosis Closed pelvic ring fracture, with routine healing, subsequent encounter: she was sent h ome with home health for continued PT from [facility] - await repeat PT / OT evaluations [...] Single Lumen 08/25/16 2216 Left Lateral Forearm ihpj-eal-bbaumv [address] ter system 22 gauge;1 in length less than 1 day Active Tubes/Drains No matching active lines, drains, or airways MEDICATIONS: SCHEDULED: acetaminophen 650 mg Oral 4x Daily adult multivitamin with minerals/iron 1 tablet Oral Daily amoxicillin-clavulanate 1 tablet Oral BID aspirin 81 mg Oral Daily atorvaSTATin 40 mg Oral Nightly calcium-vitamin D 2 tablet Oral TID carvedilol 6.25 mg Oral BID WC docusate-senna [...] Room # 845/845-01 ISO: Contact Item for assessment services manager Comments Shift Summary: Include Pain RX Had a fall at home, brought to [facility], pelvic fx. Disc harged home with home health and admitted to [facility] for intractable pain. Taking Oxy 10mg [...] Date: 08/25/2016 Date of Service: 08/26/2016 PCP: Yolanad Richmond [facility] Hospital Day: Hospital Course: Ms. Pichardo is a 61-year-old female admitted to [facility] on N for a left inferior and superior pubic rami fractures and a right sacral alar fra cture. She was discharged to home August 20 with home health services and has reportedly done poorly with uncontrolled pain. Home Health staff advised readmission for evaluation for acute inpatient rehabililtation, but she was sent to [facility] instead of [facility]. She was noted to have a marked leukocytosis and elevated CRP of unclear significance. Assessment and Plan: Ms. Pichardo's chart was reviewed in detail, and she was seen and examined by me. Assessment of active problems addressed today: Active Hospital Problems Diagnosis Closed pelvic ring fracture, with routine healing, subsequent encounter: she was sent h ome with home health for continued PT from [facility] - await repeat PT / OT evaluations [...] to a SNF from her admission at [facility] (toxicology screen ordered this am). 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 Taking Prior to Admission medications [...] [x] [] Tdap [] [] [x] [] [employer] Med List Sources Medications reported by the patient were confirmed via: [x] Verbal interview (able to recall drug name, strength, frequency, etc.) [] Provided a complete current medication list [] Medication bottles [] MAR from SNF facilities: [x] Pharmacy - list names if received from multiple pharmacies: [facility] [] Doctor's office: [x] [employer] insurance reported information [] Care Everywhere [] [place] Prescription Monitoring Program [] Other sources: Medication history performed and electronically signed by Azra Hernandez, Switching Clerk 08/25 18:25 Associated attestation - George Sultana PharmD - 08/25/2016 6:42 PM PSTReviewed COMPANY LAUNDRY WORKER med l ist changes and agree with discrepancies noted by watch repair technician. Electronically signed by: George Sultana PHARMD 08/25/2016 18:42 Claudia Nguyễn Bi Application Developer-Clinical - 08/25/2016 6:15 PM PSTSLRI bottle caser receive d referral. Clinical information reviewed. Await therapy input to assess IPR determination. Will follow progress for discharge recommendations. Electronically signed by: Claudia Nguyễn WOOLEN TESTER 08/25/2016 18:15 documented in this encounter Plan of Treatment +--------+---------+ + + + | Date | Type | Specialty | Care Team | Description | +--------+---------+ + + + | 10/28/ Office | Cardiology | Carol, | | | 2019 | Visit | | SALVATORE Moreno [address] | | | | | | [place], | | | | | | [place] [address] | | | | | | [phone] | | | | | | | [...] + | [facility] | [address] | [place] [address] | | | [facility] | | | | | [...] + | [facility] | [address] | [place] [address] | | | [facility] | | | | | LABORATORY [...] | ANNE MARIE PICHARDO Study Date: 08/27/2016MRN: [id number] | | | Patient Location: [facility] 845DOB: 1955 | | | Age: 61 yrs Gender: | | | FemaleHeight: 62 in Weight: 140 lb | | | BSA: 1.6 m2 | | | HR: 81 Rhythm: SRHistory: CAD, | | | ACUTE AR, ICM, HTN, ANXIETY, DEPRESSIONReason For Study: murmur, [...] | | 08/27/2016 01:21 PMOrdering Physician: ROCHELLE BOTOHchocardiographer: | | | Parish [id number]: | | [...] | |Ordering Physician: PABLO BOOTH | | |Senior Maintenance Mechanic: Parish Diaz | | |[id number]: | | | | | + + ---+ + + | Procedure Note | + + | Tim, Rad Results In - 08/27/2016 1:35 PM PST | | Adult Echo | | Report | | | | Name: ANNE MARIE PICHARDO Study Date: 08/27/2016 | | Patient Location: [place] [address] | | : 1955 Age: 61 yrs Gender: Female | | Height: 62 in Weight: 140 lb BSA: 1.6 m2 | | HR: 81 Rhythm: SR | | History: CAD, ACUTE AR, ICM, HTN, ANXIETY, DEPRESSION | | Reason [...] | Ordering Physician: PABLO BOOTH | | Senior Maintenance Mechanic: Parish Diaz | | [id number]: | + + Procalcitonin (08/27/2016 5:30 AM [...] + + | [facility] | [address] | [place] [address] | | | [facility] | | | | | LABORATORY [...] This | 0.0 - 1.5 mg/dL | [facility] | | | | CRP assay is [...] + + + + + | YARELISDEMIEligio SATURNINOFAUSTO | [address] | [place] [address] | | | [facility] | [...] [facility] | [address] | [place] [address] | | | [facility] | | | | | LABORATORY [...] + | [facility] | [address] | [place] [address] | | | [facility] | | | | | LABORATORY [...] + + + + + | YARELISDEMIEligio BRENDAN | [address] | [place] [address] | | | [facility] | | | | | LABORATORY [...] + + | [facility] | [address] | [place] [address] | | | [facility] | | | | | LABORATORY [...] (H)Comment: This | <0.50 ug/mL FEU | PROVIDEDEMIE | | | Quantitativ | quantitative D [...] [address] | [place] [address] | | | [facility] | | | | | [...] + | YARELISCARLOS [facility] | [address] | [place] [address] | | | [facility] | | | | | [...] + | [facility] | [address] | [place] [address] | | | [facility] | [...] + | [facility] | [address] | [place] [address] | | | [facility] | [...] + + | [facility] | [address] | [place] [address] | | | [facility] | [...] + | [facility] | [address] | [place] [address] | | | [facility] | | | | | LABORATORY [...] + + | [facility] | [address] | [place] [address] | | | [facility] | | | | | LABORATORY [...] + | [facility] | [address] | [place] [address] | | | [facility] | | | | | LABORATORY [...] | Tim, Rad Results In - 08/25/2016 5:24 PM PST [...] - 1.030 | [facility] | | | [facility] | | | [facility] | | | [...] + | [facility] | [address] | [place] [address] | | | [facility] | | | | | LABORATORY [...] + | Tim, Presley Results In - 08/25/2016 4:37 PM PST [...] | | | | Signed by: Roe iKmball | + + + +---------+ + + [...] + + | Glucose | 127 (H)Comment: Wallisian | 65 - 99 mg/dL | [facility] [...] [facility] | [address] | [place] [address] | | | [facility] | [...] + + + + + | YARELISDEMIEligio BRENDAN | [address] | [place] [address] | | | [facility] | | | | | [...] disorders of iron metabolism | + + | Bipolar disorder (HCC) [...] | | | | | Intravenous, ONCE, [place] 08/25/16 | | PM PST | | [...] PST | | | | | Starting Fri08/26/16 at 0823 | | | | | [...] | | | DAILY, First dose on 08/26/16 | | | | | | | [...] PST | | | | | at 2015 | | | | | | + [...]
--- OUTSIDE RECORDS SUMMARY | ~2019-09-08 | XMS | Encounter Summary ---
Demographics + + + | Address | [address] | | | [place] [address] | + + + | Home Phone | | + + + | Preferred Language | Unknown | + + + | Marital Status | | + + + | Quaker Affiliation | 1041 | + + + | Race | Unknown | + + + | Ethnic Group | Unknown | + + + Author + + + | Author | [facility] | | | and Ankitana | + + + | Organization | [facility] | | | and Ankitana [...] Team Providers + +------+ + | Care Bench Worker Name | Role | Phone | + +------+ + | Yolanda Lee | PCP | | + +------+ + Encounter Details +--------+ + + + + | Date | Type | Department | Care Team | Description | +--------+ + + + + | 03/05/ | Hospital | [facility] | Jesse Siddiqi MD | Cellulitis and | | 2015 | Encounter | [facility] | [address], | abscess of hand, | | | | [facility] | [address] floor [place], | except fingers and | | | | [address] [place], | [place] [address] | thumb; Bacteremia | | | | [place] [address] | [phone] | due to Streptococcus | | | | [phone] | | / Sepsis | +--------+ + [...] tablets by | 20 | 0 | 12/29/ | | | HYDROcodone-acetamin | mouth every [...] | | | | | | [place] [address] | | | | | | [phone] | | | | | | | [...]
--- OUTSIDE RECORDS SUMMARY | ~2019-09-08 | XMS | Encounter Summary ---
Demographics + + + | Address | [address] | | | [place] [address] | + + + | Home Phone [...] | Author | [facility] | | | and Ankitana | + + + | Organization | [facility] | | | and Ankitana [...] Team Providers + +------+ + | Care Teletypewriter Installer Name | Role | Phone | [...] | | | and abscess | | [address] | | | | | UTI (lower | | Phone: | | | | | urinary | | [phone] | | | | | tract | | Fax: | | | | | infection) | | [phone] | | | | | Methamphetam | | | | | | | ine use | | | | | | | ([facility]) [place] | | | | | | | (acute | | | | | | | kidney | | | | | | | injury) | | | | | | | ([facility]) | | | | | | [...] + + | 02/22/ | Hospital | [facility] | Marco Hale MD | Sepsis, due to | | 2015 - | Encounter | [facility] | [address] | unspecified organism | | | | [facility] | [place] [address] | ([facility]) (Primary Dx); | | 02/24/ | | [address] [place], | [phone] | Cellulitis and | | 2014 | | [place] [address] | | abscess; | | | | [phone] | S[place], | Hyponatremia; UTI | | | | | [address] | (lower urinary tract | | | | | [address] | infection); [place] | | | | | [place] [address] | (acute kidney | | | | | [phone] | injury) ([facility]); | | | | | | Methamphetamine use; | | | | | Fernanda Siddiqi MD [address] | Bipolar affective | | | | | [address] | disorder, current | | | | | floor [place] | episode depression, | | | | | [address] | unspecified severity | | | | | | ([facility]); Heroin | | | | | | dependence ([facility]); | | | | | | Other [...] Siddiqi MD - 02/24/2015 11:32 AM PDT [facility] FACULTY HOSPITALIST DISCHARGE SUMMARY PATIENT NAME: [...] Yolanda Lee 1-2 weeks Daily return to [place] outpatient infusion for IV Rocephin 2 g [...] Plan Improved, current EF 55%. History of OK, stent and EF of 40% 2012 at [...] this chart may have been created with [employer] voice recognition software. Occasi onal wrong-word or [...] dressing, secure with phoebe wrap. change daily. [facility] Patient Belongings Anne Marie Pichardo 1955 Patient Signature: Clinician/Material Handling Crew Supervisor Signature: documented in this encounter Medications at [...] Verbalizes to above and denies questions to. Keaton Barker RN - 02/24/2015 2:06 PM PDTOr ders [...] FRANK Lei 02/24/2015 11:45 Oksana Schaefer - 9:55 AM PDTPt lives in [place], has MDCR, was admitted for sepsis. notified RIZWANA pt will need 2 weeks IV ABX at discharge. Per chart review pt has done home infusion with [facility] before. Referral made to IV Therapy who will have [facility] assess pt for home infusion vs outpatient series. RIZWANA will continue to follow and assist as needed. Electronically signed by : FRNAK Lei 02/24/2015 9:55 Halle Francis RN - [...] change dressings. Faxed RX for supplies to [email or web address]. 02/24/15 0915 Visit Information Visit Type Wound re-assessment Wound 02/22/15 Left: palm abscess;extravasation Observed Date: 02/22/15 Side: Left: Location: palm Wound Type: abscess;extravasation A dditional Comments: (c) Wound WDL Ex Wound Base pink;moist Periwound Area intact Drainage Characteristics/Odor serosanguineous Drainage Amount scant Wound Cleaning sterile normal saline Wound Interventions antimicrobial gel Dressing low-adherence/inf-jzeezwsnw-jvdigbe Wound 02/22/15 0850 Right: dorsal hand abscess Observed Date/Observed Time: 02/22/15 0850 Side: Right: Orientation: dorsal Location: h and Wound Type: abscess Wound WDL Ex Wound Base moist;pink Periwound Area swelling;redness Drainage Characteristics/Odor serosanguineous Drainage Amount scant Wound Interventions antimicrobial gel Dressing dressing changed:;low-adherence/ggq-vxwrtmhyw-iqkcvhf Visit Summary Discipline Providing Treatment WOCN Next Wound/Ostomy Visit Date (d/c today) Skylar Becker RN - 02/24/2015 4:12 AM PDT Nursing Handoff Note Room # 922/922-01 Item for economic research analyst Comments Dx/Tx: Sepsis, BCx positive for strep [...] Stool Occurrence: 1 (02/23/15 0600) Pain Management: Arvin 10/325 tab 1 po Q 4 hrs, [...] MD Communication (pending/call needed?) 4. Other comments/concerns Серегй Ocasio RN - 02/23/2015 3:32 PM PDTFormatting of this note might be differen t from the original. Nursing Handoff Note Room # 922/922-01 Item for economic research analyst Comments Dx/Tx: Sepsis, BCx positive for strep [...] Date 02/24/15 (f/u POC bilat hand abscesses) ernanda Siddiqi MD - 1:59 PM PDT [facility] FACULTY HOSPITALIST PROGRESS NOTE PATIENT [...] Plan Improved, current EF 55%. History of OK, stent and EF of 40% 2011 at [...] this chart may have been created with [employer] voice recognition software. Occasi onal wrong-word or sound-alike substitutions may have occurred due to the inherent meyers itations of voice recognition software. Please read the chart carefully and recognize, using context, where these substitutions have occurred Halle Moore RN - 0 02/23/2015 5:04 AM PDT Nursing Handoff Note Room # 922/922-01 Item for economic research analyst Comments Dx/Tx: Sepsis, 2 (+) BC for [...] Handoff Note Room # 922/922-01 Item for economic research analyst Comments Dx/Tx: Sepsis, + BC strep A; [...] be home in 1-2 days, if not [facility] IV antibiotics VTE Prophylaxis: (SCD or Rx?) [...] PM PDT Nursing Handoff Note Room # 922/922- Item for economic research analyst Comments Dx/Tx: Sepsis -> IV abx, fluids [...] D/C Date: Last bowel movement: Pain Management: Arvin prn Filed Vitals: 02/22/15 0936 02/22/15 1006 [...] P&T-approved Vancomycin Protocol Electronically signed by: Romeo Paloimno PHARMJose 02/22/2015 10:19 documented in this encounter [...] | | | | | | [place] [address] | | | | | | [phone] | | | | | | | [...] [facility] | [address] | [place] [address] | | | [facility] | | | | | LABORATORY [...] + + | [facility] | [address] | [place] [address] | | | [facility] | [...] + + | Glucose | 145 (H)Comment: Swedish | 65 - 99 mg/dL | [facility] | | | | Diabetes Association | [...] | | | | failure.For | | [place] | | | | Americans, multiply the [...] + + | [facility] | [address] | [place] [address] | | | [facility] | | | | | LABORATORY [...] | ANNE MARIE PICHARDO Study Date: 02/23/2015MRN: [id number] | | | Patient Location: [facility]DOB: 1955 | | | Age: 59 yrs Gender: FemaleHeight: | | | 68 in Weight: 139 lb | | | BSA: 1.8 m2 HR: 65 | | | Rhythm: SR.History: CAD, ACUTE OK, ICM, | | | HTN, ANXIETY, DEPRESSION.Reason [...] 02/23/2015 12:43 PMOrdering Physician: | | | FERNANDA SIDDIQIEchocardiographer: Farzad [id number]: | | |RVDd: 3.9 cm [...] | |Ordering Physician: FERNANDA SIDDIQI | | |Paper Hanger: Farzad Parker | | |[id number]: | | | | | + + --+ + + | Procedure Note | + + | Tim, Rad Results In - 02/23/2015 12:44 PM PDT | | Adult Echo | | Report | | | | Name: ANNE MARIE PICHARDO Study Date: 02/23/2015 | | Patient Location: [place] [address] | | : 1955 Age: 59 yrs Gender: Female | | Height: 68 in Weight: 139 lb BSA: 1.8 m2 | | HR: 65 Rhythm: SR. | | History: CAD, ACUTE OK, ICM, HTN, ANXIETY, DEPRESSION. | | Reason [...] | Ordering Physician: FERNANDA SIDDIQI | | Paper Hanger: Farzad Parker | | [id number]: | + + Comprehensive Metabolic Panel (02/23/2015 [...] + + | Glucose | 112 (H)Comment: Swedish | 65 - 99 mg/dL | [facility] | | | | Diabetes Association | [...] + + | [facility] | [address] | [place] [address] | | | [facility] | | | | | [...] + | [facility]ARELISDEMIK[facility] | [address] | [place] [address] | | | [facility] | | | | | LABORATORY [...] + + | [facility] | [address] | [place] [address] | | | [facility] | | | | | [...] + + | [facility] | [address] | [place] [address] | | | [facility] | | | | | LABORATORY [...] + + | [facility] | [address] | [place] [address] | | | [facility] | [...] | Tim, Rad Results In - 02/22/2015 9:11 AM PDT [...] + + | [facility] | [address] | [place] [address] | | | [facility] | | | | | LABORATORY [...] [facility] | [address] | [place] [address] | | | [facility] | | | | | [...] - 1.030 | [facility] | | | [place] | | | [facility] | | | [...] [facility] | [address] | [place] [address] | | | [facility] | | | | | LABORATORY [...] RESULT | Results called to: | | [facility] | | | | [place] [address] ON | | [facility]CRED | | | [...] [facility] | [address] | [place] [address] | | | [facility] | | | | | LABORATORY [...] + + | [facility]LOS [facility] | [address] | [place] [address] | | | [facility] | | | | | LABORATORY [...] + + | [facility] | [address] | [place] [address] | | | [facility] | [...] [address] | [place] [address] | | | [facility] | | | | | [...] + + | [facility] | [address] | [place] [address] | | | [facility] | | | | | LABORATORY [...] + + | Glucose | 104 (H)Comment: Swedish | 65 - 99 mg/dL | [facility] [...] + + | Performing | Address | City/State/[facility] Centercode | Phone Number | | Organization | | | | + + + + + | [facility] | [address] | [place] [address] | | | [facility] | | | | [...] CRP | 0.0 - 1.5 mg/dL | [facility] | | | | assay is useful [...] + + | [facility] | [address] | [place] [address] | | | [facility] | | | | | [...] + + | [facility] | [address] | [place] [address] | | | [facility] | [...] + + | [facility] | [address] | [place] [address] | | | [facility] | [...] | Results called to: JEET | | YINE | | | | C 02/22 | | [facility] | | | | [...] | YARELISNCE | | | | C [facility] 02/22 2235 | | [facility]CR[facility] | | [...] + + | [facility] | [address] | [place] [address] | | | [facility] | | | | | LABORATORY [...] -------- ---- | | | 02/22/2015 07:08 [facility] | | | Emergency -fever, chills 02/01/2015 14:46 [facility] | | | [facility] Emergency -FIT/ADJ VASCULAR CATHETER | | | [...] AND UTERUS | | | 01/08/2015 21:11 [facility] Emergency | | | -Cellulitis and abscess of hand, except fingers and thumb | | | | | | 2. Unspecified essential hypertension | | | | | | 3. Old myocardial infarction | | | | | | 4. PERCUTANEOUS TRANSLUM CORON ANGIOPLASTY STATUS | | | | | | 5. Tobacco use disorder 12/26/2014 18:55 [place] | | | [facility] Emergency -3- Skin Problem | | | | | | -Skin Problem | | | -Cellulitis and | | | abscess of unspecified sites | | | -Leukocytosis, | | | unspecified | | | -3 Skin Problem | | | | | | -Hyposmolality and/or hyponatremia | | | | | | -Coronary atherosclerosis of unspecified type of vessel, | | | [place] or graft | | | -Hand Swelling VISIT | | | COUNT (1 YR.) Visits Medicaid [place] Dx Location ------ | | | --------- 4 0 | | | [facility] 2 0 | | | [facility] 1 0 | | | [facility] 7 0 Total | | | Note: Visits indicate total known visits. Medicaid [place] Dx are the | | | number of primary diagnoses on the [facility]'s non-emergent dx list. | | | | | | --- Guidelines Source: [facility] Guidelines Date: | | | 09/06/2013 Care Recommendation: Care at [facility] | | | Health Past Medical [...] unspecified | + + | Methamphetamine use (HCC) [...] | | | | | | Marycarmen 02/23/15 at 0800, [facility] ro SBP | | | | | [...] 02/24/20 | | | | | Starting [facility] 02/23/15 at 1408, For | | 15 [...] ft | | DAILY, First dose on Marycarmen 02/23/15 | | AM PDT | | | [...] PDT | | | | | Starting Fri02/22/15 at 1031, | | | | | [...] | | | | | Minutes, ONCE, Fri02/22/15 at | | | | | [...] | | | 10 mEq, Oral, ONCE, [facility] 02/23/15 | | PM PDT | [...]
--- OUTSIDE RECORDS SUMMARY | ~2019-09-08 | XMS | Encounter Summary ---
Demographics + + + | Address | [address] | | | [place] [address] | + + + | Home Phone [...] Author | [facility] | | | and Ankitana | + + + | Organization | [facility] | | [...] Team Providers + +------+ + | Care Agent Producer Name | Role | Phone | + +------+ + | Yolanda Lee | PCP | | + +------+ + Encounter Details +--------+ + + + + | Date | Type | Department | Care Team | Description | +--------+ + + + + | 03/07/ | Hospital | [facility] | Jesse Siddiqi MD | Cellulitis and | | 2015 | Encounter | [facility] OP | [address], | abscess of hand, | | | | INFUSION [address] | [address] floor [place], | except fingers and | | | | Ave [place], [place] | [place] [address] | thumb; Bacteremia | | | | [address] | [phone] | due to Streptococcus | | | | [phone] | | / Sepsis | +--------+ + [...] | | | | | | [place] [address] | | | | | | [phone] | | | | | | | [...]
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
--- OUTSIDE RECORDS SUMMARY | ~2019-09-08 | XMS | Encounter Summary ---
Demographics + + + | Address | [address] | | | [place] [address] | + + + | Home Phone [...] Author | [facility] | | | and Aniktana | + + + | Organization | [facility] [...] Team Providers + +------+ + | Care Regional Extension Service Specialist Name | Role | Phone | [...] [place] | Carol, | Other | | 2018 | | CARDIOLOGY [address] | TiffanieSALVATORE gomez [address] | | | | | [place], | [place], | | | | | [place] [address] | [place] [address] | | | | | [phone] | [phone] | | | | | | | [...] | | | | | | [place] [address] | | | | | | [phone] | | | | | | | | +--------+---------+ + + + documented as of this encounter Visit Diagnoses Not on filedocumented in this encounter"
--- OUTSIDE RECORDS SUMMARY | ~2019-09-08 | XMS | Encounter Summary ---
Demographics + + + | Address | [address] | | | [place] [address] | + + + | Home Phone [...] | Author | [facility] | | | and Ankitana | + + + | Organization | [facility] | [...] Team Providers + +------+ + | Care Sugar Boiler Name | Role | Phone | + +------+ + PCP | Unavailable | + +------+ + Encounter Details +--------+ + + + + | Date | Type | Department | Care Team | Description | +--------+ + + + + | 08/13/ | Hospital | [facility] | Conversion | | | 2009 | Encounter | [facility] | Transaction, | | | | | CENTER [address] | Provider Unknown | | | | | [address] | [phone] | | | | | [place] | | | | | | [address] | | | | | | [phone] | | | +--------+ + + + [...] | | | | | | [place] [address] | | | | | | [phone] | | | | | | | | +--------+---------+ + + + documented as of this encounter Visit Diagnoses Not on filedocumented in this encounter"
--- OUTSIDE RECORDS SUMMARY | ~2019-09-08 | XMS | Encounter Summary ---
Demographics + + + | Address | [address] | | | [place] [address] | + + + | Home Phone [...] Author | [facility] | | | and Ankitana | + + + | Organization | [facility] | | | and [...] Team Providers + +------+ + | Care Debate Director Name | Role | Phone | + +------+ + | Yolanda Lee | PCP | | + +------+ + Encounter Details +--------+ + + + + | Date | Type | Department | Care Team | Description | +--------+ + + + + | 02/27/ | Hospital | [facility] | Jesse Siddiqi MD | Cellulitis and | | 2015 | Encounter | [facility] | [address], | abscess of hand, | | | | C[facility] MED[facility] [address] | [address] floor [place], | except fingers and | | | | [address] [place], | [place] [address] | thumb; Bacteremia | | | | [place] [address] | [phone] | due to Streptococcus | | | | [phone] | | / Sepsis | +--------+ + [...] + + + | Blood Pressure | 124/64 | 02/27/2015 4:59 PM | | | | | PDT | | + + + + + | Pulse | 68 | 02/27/2015 4:59 PM | | | | | PDT | | + + + + + | Temperature | 37.1 C (98.8 F) | 02/27/2015 4:59 PM | | | | | PDT | | + + + + + | Respiratory Rate | 16 | 02/27/2015 4:59 PM | | | | | PDT | | + + + + + | Oxygen Saturation | 95% | 02/27/2015 4:59 PM | | | | | PDT [...] documented as of this encounter Progress Notes Soraya Adan RN - 02/27/2015 6:01 PM PDTPatient received antibiotic. Tolerated we ll. Charge captured. Patient has left floor. documented in this encounter Plan of Treatment +--------+---------+ + + + | Date | Type | Specialty | Care Team | Description | +--------+---------+ + + + | 10/28/ | Office | Cardiology | Carol, | | | 2019 | Visit | | SALVATORE Moreno [address] | | | | | | [place], | | | | | | [place] [address] | | | | | | [phone] | | | | | | | [...] 2 g in | New Bag | 05/25/20 | 2 g | 100 | | | sodium chloride 0.9% 50 mL IVPB | | 15 5:27 | | mL/hr | | | 2 g, Intravenous, Administer over | | PM PDT | | | | | 30 Minutes, EVERY 24 HOURS | | | | | | | (Daily), First dose on Mon | | | | | | | 02/27/15 at 1730, For 14 days, | | [...]
--- OUTSIDE RECORDS SUMMARY | ~2019-09-08 | XMS | Encounter Summary ---
Demographics + + + | Address | [address] | | | [place] [address] | + + + | Home Phone | | + + + | Preferred Language | Unknown | + + + | Marital Status | | + + + | Denominational Affiliation | 1041 | + + + | Race | Unknown | + + + | Ethnic Group | Unknown | + + + Author + + + | Author | [facility] | | | and Ankitana | + + + | Organization | [facility] | [...] Team Providers + +------+ + | Care Multi Township Assessor Name | Role | Phone | + +------+ + PCP | Unavailable | + +------+ + Encounter Details +--------+ + + + + | Date | Type | Department | Care Team | Description | +--------+ + + + + | 12/06/ | Hospital | [facility] | Kristian Nieves, | | | 2009 | Encounter | [facility] | [address] | | | | | [place] [address] | [facility] | | | | | [facility] | [place] [address] | | | | | [place] | [phone] | | | | | [address] | | | | | | [phone] | | | +--------+ + + + [...] [address] | | | | | | [place], | | | | | | [place] [address] | | | | | | [phone] | | | | | | | | +--------+---------+ + + + documented as of this encounter Visit Diagnoses Not on filedocumented in this encounter"
--- OUTSIDE RECORDS SUMMARY | ~2019-09-08 | XMS | Encounter Summary ---
Demographics + + + | Address | [address] | | | [place] [address] | + + + | Home Phone | | + + + | Preferred Language | Unknown | + + + | Marital Status | | + + + | Buddhist Affiliation | 1041 | + + + | Race | Unknown | + + + | Ethnic Group | Unknown | + + + Author + + + | Author | [facility] | | | and Ankitana | + + + | Organization | [facility] [...] Providers + +------+ + | Care Manager Front Name | Role | Phone | + +------+ + | Yolanda Lee | PCP | | + +------+ + Encounter Details +--------+ + + + + | Date | Type | Department | Care Team | Description | +--------+ + + + + | 03/08/ | Hospital | [facility] | Jesse Siddiqi MD | Cellulitis and | | 2015 | Encounter | [facility] OP | [address], | abscess of hand, | | | | INFUSION [address] | [address] [place], | except fingers and | | | | [address] [place], [place] | [place] [address] | thumb; Bacteremia | | | | [address] | [phone] | due to Streptococcus | | | | [phone] | | / Sepsis | +--------+ + [...] + + + | Blood Pressure | 159/73 | 03/08/2015 5:00 PM | | | | | PDT | | + + + + + | Pulse | 67 | 03/08/2015 5:00 PM | | | | | PDT | | + + + + + | Temperature | 35.8 C (96.4 F) | 03/08/2015 5:00 PM | | | | | PDT | | + + + + + | Respiratory Rate | 16 | 03/08/2015 5:00 PM | | | | | [...] | | | | | | [place] [address] | | | | | | [phone] | | | | | | | [...] 2 g in | New Bag | 03/08/20 | 2 g | 100 | | | sodium chloride 0.9% 50 mL IVPB | | 15 5:09 | | mL/hr | | | 2 g, Intravenous, Administer over | | PM PDT | | | | | 30 Minutes, EVERY 24 HOURS | | | | | | | (Daily), First dose on Fri03/08/15 | | | | | | | at 1650, For 14 days, Keep in | | [...]
--- OUTSIDE RECORDS SUMMARY | ~2019-09-08 | XMS | Encounter Summary ---
Demographics + + + | Address | [address] | | | [place] [address] | + + + | Home Phone | | + + + | Preferred Language | Unknown | + + + | Marital Status | | + + + | Faith Affiliation | 1041 | + + + | Race | Unknown | + + + | Ethnic Group | Unknown | + + + Author + + + | Author | [facility] | | | and Ankitana | + + + | Organization | [facility] | | [...] Team Providers + +------+ + | Care Microgrinder Operator Name | Role | Phone | [...] + + | 04/22/ | Office | [facility] | Carol, | Hypertension, | | 2019 | Visit | CARDIOLOGY [address] | SALVATORE Moreno [address] | unspecified type | | | | [place], | [place], | (Primary Dx); | | | | [place] [address] | [place] [address] | Ischemic | | | | [phone] | [phone] | cardiomyopathy; ASHD | | | | [...] encounter Patient Instructions Patient Instructions Alla Manjarrez, Fire Equipment Repairer Inspector - 04/22/2019 11:30 AM PDT1. The cur [...] chronic, stage II (GFR 60-89 ml/min) H/O TX (myocardial infarction) Hepatitis C Risk factors for [...] Abnormal ECG Confirmed by MARIANGEL WALTON MD ([id number]) on 10/01/2018 12:13:49 PM LAB RESULTS reviewed during visit today primarily from [facility]: LIPID No results found for: CHOL, TRIG, [...] NULL 05/16/2012 RESULTS- I reviewed reports from [facility]: Above data and testing is reviewed this visit; testing below is historical data unless othe rwise specified. ASSESSMENT: 1. Coronary artery disease with ischemic cardiomyopathy A. History cardiac arrest post unknown stenting in [address] [facility] in [place] B. Echocardiogram 2D , M-mode, Doppler and [...] right ventricle size and function. By Mani cShneider MD. D. Echocardiogram on 02/23/15 shows, the [...] the inferior and lateral castillo from prior TX, mild destinee infarct ischemia. LARGE SEVERE inferior and Lateral TX. By Shad Schuler MD G. Left heart cath on 06/09/18 shows, severely calcified coronaries w ith severe three-vessel CAD including 60% distal left main, 90% ostial circumflex, 99% proxi mal circumflex, obtuse marginal 4 and 5 disease, ostial and proximal 40% LAD, 95% ostial sep eleni cardiac rehabilitation specialist, 70% mid and distal LAD, 100% mid [...] function. Trace TR, pulmonic valve normal Trace MN, visible portions of ascendin g aorta and arch normal, grade 2 atherosclerotic disease of descending aorta, pulmonary sienna ry normal, normal pericardium. No pericardial fluid. No pleural fluid. Post-procedure, LV function is improved to borderline with LVEF=50%, previously severely hypokinetic inferolate ral segments are improved, no change in right ventricular function compared to preop, no mio nge in valves compared to preop, no [...] no limitations of act ivities of the [place] [employer] functional class. Heart failure stage [...] visit, or sooner with concerns. Alla Tuttle, Fire Equipment Repairer Inspector am acting as a scribe on behalf of, and in the presenc e of SALVATORE Gonzales. - Alla Manjarrez Fire Equipment Repairer Inspector 04/22/2019 11:40 Tiffanie Tuttle ARNP, personally performed the services described in this documentati on, as scribed in my presence and it is both accurate and complete. -SALVATORE Gonzales 04/22/2019 Portions of this chart may have been created with [employer] voice recognition software. Occasi onal wrong-word or [...] W | | | | | | [place], | | | | | | [place] [address] | | | | | | [phone] | | | | | | | | +--------+---------+ + + + documented as of this encounter Visit Diagnoses + + | Diagnosis | + + | Hypertension, unspecified type - Primary | + + | Ischemic cardiomyopathy Other specified forms of chronic ischemic heart disease | + + | ASHD (arteriosclerotic heart disease) Coronary atherosclerosis of unspecified type of | | vessel, [place] or graft | + + | Chest pain syndrome Chest pain, unspecified | + + | Cardiac LV ejection fraction 30-35% Other symptoms involving cardiovascular system | + + | Cardiac arrest with ventricular fibrillation (HCC) | + + | Mixed hyperlipidemia | + + documented in this encounter
--- OUTSIDE RECORDS SUMMARY | ~2019-09-08 | XMS | Encounter Summary ---
Demographics + + + | Address | [address] | | | [place] [address] | + + + | Home Phone | | + + + | Preferred Language | Unknown | + + + | Marital Status | | + + + | Synagogue Affiliation | 1041 | + + + | Race | Unknown | + + + | Ethnic Group | Unknown | + + + Author + + + | Author | [facility] | | | and Ankitana | + + + | Organization | [facility] | [...] Team Providers + +------+ + | Care Gas Manager Name | Role | Phone | + +------+ + | Yolanda Lee | PCP | | + +------+ + Encounter Details +--------+ + + + + | Date | Type | Department | Care Team | Description | +--------+ + + + + | 03/02/ | Hospital | [facility] | Jesse Siddiqi MD | Cellulitis and | | 2015 | Encounter | [facility] OP | [address], | abscess of hand, | | | | INFUSION [address] | 9th floor [place], | except fingers and | | | | Ave [place], [place] | [place] [address] | thumb; Bacteremia | | | | [address] | [phone] | due to Streptococcus | | | | [phone] | | / Sepsis | +--------+ + [...] | | | | | | [place] [address] | | | | | | [phone] | | | | | | | [...]
--- OUTSIDE RECORDS SUMMARY | ~2019-09-08 | XMS | Encounter Summary ---
Demographics + + + | Address | [address] | | | [place] [address] | + + + | Home Phone | | + + + | Preferred Language | Unknown | + + + | Marital Status | | + + + | Sikh Affiliation | 1041 | + + + | Race | Unknown | + + + | Ethnic Group | Unknown | + + + Author + + + | Author | [facility] | | | and Ankitana | + + + | Organization | [facility] | | | and [...] Team Providers + +------+ + | Care Appellate Court Clerk Name | Role | Phone | [...] | | | | | | | ([facility]) | | | | | [...] | OP [address] | [place], [place] | | | | | [place], [place] | [phone] | | | | | [address] | | | | | | [phone] | Aba Sampson T, | | | | | | MD [address] | | | | | | [place], [place] | | | | | | [phone] | | | | | | | [...] normal Trace | | | | | [place]. 8. Visible portions of ascending aorta and [...] 06/12/18 1200 by | | eral | ssec-jzy-ddadzc catheter system; | Monica Allison RN | [...] | | | procedure documentation); Mask | NEWS LIBRARY DIRECTOR | | | | Ventilation: EZ; Airway [...] | | | Yes; Yes; All; OR; Head Girls Golf Coach; | | | | | Ashly Bradshaw [...] | | | | | | [place] [address] | | | | | | [phone] | | | | | | | [...] this time Person | | | recording: email deployment specialist Performed by: ASHLY BRADSHAW Location | | [...] performed: OR Electronically Signed by: | | MD Lamin Cowart date/time: 06/11/2018 11:49 | |Number of Lumens: [...] noted at this time | |Person recording: email deployment specialist | |Performed by: ASHLY BRADSHAW | |Location performed: [place] | | | |Electronically Signed by: MD Yo Cowart date/time: 06/11/2018 11:49 | + ------+ Anesthesia [...] | Procedure Note | + -------+ | Ashly Bradshaw MD - 06/11/2018 11:37 AM PDT [...] fem art | | for line placement. [facility] | |LDA Gauge Size: 5 fr. | [...] | laryngoscopePerforming provider: SYLVIA GARBER MAssisted by: JITENDRA | | ASHLYElectronically Signed by: Ashly Bradshaw MD ESig | | date/time: 06/11/2018 11:11 | |Airway type: endotracheal | |Size: 7.5 | |Cuffed: cuffed | |Route, reference point: right side of mouth | |Tube depth: 23 cm | |Tube secured with: adhesive tape | |Trauma: none | |Tube placement verification: bilateral chest rise, equal bilateral breath sounds, carbon di oxide detection and video laryngoscope | |Performing provider: SYLVIA GARBER M | |Assisted by: ASHLY BRADSHAW | | [...] | r | | | | Starting Marycarmen 06/11/18 at 1140, | | | | | | | Anesthesia Intra-op | | | | | | + +---------+ + +-------+---+ +---+---+ | | | +---+---+ + +-------+ +-------+---+---+ | esmolol (BREVIBLOC) 10 mg/mL | Given | 06/11/20 | 50 mg | | | | injection Intravenous, PRN, | | 18 10:06 | | | | | Starting Marycarmen 06/11/18 at 1006, | | AM PDT [...] | | | | | PRN, Starting [facility] 06/11/18 at 1057, | | PM PDT [...]
--- OUTSIDE RECORDS SUMMARY | ~2019-09-08 | XMS | Encounter Summary ---
Demographics + + + | Address | [address] | | | [place] [address] | + + + | Home Phone | | + + + | Preferred Language | Unknown | + + + | Marital Status | | + + + | Cheondoism Affiliation | 1041 | + + + | Race | Unknown | + + + | Ethnic Group | Unknown | + + + Author + + + | Author | [facility] | | | and Ankitana | + + + | Organization | [facility] | | | [...] Team Providers + +------+ + | Care Assistant Loan Processor Name | Role | Phone | + +------+ + PCP | Unavailable | + +------+ + Encounter Details +--------+ + + + + | Date | Type | Department | Care Team | Description | +--------+ + + + + | 02/19/ | Hospital | [facility] | Jesse Herr MD | | | 2006 | Encounter | [facility] | [address] | | | | | CENTER [address] | [place] | | | | | [place] | [address] | | | | | [place] | | | | | | [address] | | | | | | [phone] | | | +--------+ + + + [...] | | | | | | [place] [address] | | | | | | [phone] | | | | | | | | +--------+---------+ + + + documented as of this encounter Visit Diagnoses Not on filedocumented in this encounter"
--- OUTSIDE RECORDS SUMMARY | ~2019-09-08 | XMS | Encounter Summary ---
Demographics + + + | Address | [address] | | | [place] [address] | + + + | Home Phone | | + + + | Preferred Language | Unknown | + + + | Marital Status | | + + + | Hoahaoism Affiliation | 1041 | + + + | Race | Unknown | + + + | Ethnic Group | Unknown | + + + Author + + + | Author | [facility] | | | and Ankitana | + + + | Organization | [facility] | [...] Team Providers + +------+ + | Care Credit Authorizer Name | Role | Phone | + [...] | | | CENTER [address] | [place], [place] | | | | | [place] | [address] | | | | | [place] | | | | | | [address] | | | | | | [phone] | | | +--------+ + + + [...] W | | | | | | [place], | | | | | | [place] [address] | | | | | | [phone] | | | | | | | | +--------+---------+ + + + documented as of this encounter Visit Diagnoses Not on filedocumented in this encounter"
--- OUTSIDE RECORDS SUMMARY | ~2019-09-08 | XMS | Encounter Summary ---
Demographics + + + | Address | [address] | | | [place] [address] | + + + | Home Phone [...] + | Author | [facility] | | | and Ankitana | + + + | Organization | [facility] | | | and Ankitana [...] Team Providers + +------+ + | Care Radiation Engineer Name | Role | Phone | + [...] | | | | unspecified | | [address] | | | | | type of | | Phone: | | | | | vessel, | | [phone] | | | | | galena or | | Fax: | | | | | graft | | [phone] | | | | | Hyponatremia | [...] + + | 12/26/ | Hospital | [facility] | Ignacio Turcios, | Coronary | | 2015 - | Encounter | [facility] | [address] | atherosclerosis of | | | | MEDICAL [address] | [place], | unspecified type of | | 12/29/ | | [address] [place] | [place] [address] | vessel, galena or | | 2014 | | [address] | [phone] | graft (Primary Dx); | | | | [phone] | | Leukocytosis; | | | | | Shad Gaston | Cellulitis and | | | | | [address] | abscess; | | | | | [address] [place], | Hyponatremia; | | | | | [place] [address] | Bradycardia; | | | | | [phone] | Unspecified | | | | | | essential | | | | | Prejoel Balta | hypertension | | | | | MD [address] | | | | | | [address] | | | | | | [place] [address] | | | | | | [phone] | | | | | | | | | | | | Michela Umana MD | | | | | | [address] | | | | | | [place] | | | | | | [address] | | | | | | | [...] Fuentes MD - 12/29/2014 9:42 AM PDT [facility] FACULTY HOSPITALIST DISCHARGE SUMMARY PATIENT NAME: Smitha Pichardo DATE OF : 1955 DATE OF ADMISSION: 12/26/2014 DATE OF DISCHARGE: 12/29/2014 PRIMARY CARE PHYSICIAN: Litzy Zaman FOLLOW UP: [facility] Schedule an appointment as soon as possible for a visit in 1 week [facility] [place] for Care Transition Intervention Care Transition Tray Drier Operator: Jaymie Roman ext. 210 Care Fishing Hand will contact patient within 3 days after discharge to schedule a home visit. [facility] [place] [address] [facility] [address] DISCHARGE DISPOSITION: home CONSULTANTS THIS ADMISSION: Orthopedics, Dr. Nelson Almanza [facility] COURSE: Ms. Pichardo is a 59 year [...] this chart may have been created with [employer] voice recognition software. Occasi onal wrong-word or [...] Dtr . [facility] Electronically signed by: Rhona Ledesma RN 12/29/2014 14:49 arylOksana - 12/29/2014 2:11 PM PDTPt ready for d ischarge today. IV Therapy arranged for Leonora to see pt . HH needed for RN, pt agreeable to VNA. Referral made to [facility]. Pt needing to be seen by PCP at [facility] today to be see n by Leonroa. SW arranged taxi to take pt and daughter to [facility]. SW will continue to follow and assist as needed. Electronically signed by: FRANK Lei 12/29/2014 14:11 Alla Ibarra RN - [...] might be different from the origi nal. [facility] Progress Note VANCOMYCIN PER PHARMACY PROTOCOL: [...] john MD - 015 10:36 AM PDT [facility]G FACULTY HOSPITALIST PROGRESS NOTE PATIENT [...] several months at the direction of her wafer fab technician (She sees [facility] as an outpatient) Leukocytosis Assessment & [...] this chart may have been created with [employer] voice recognition software. Occasi onal wrong-word or sound-alike substitutions may have occurred due to the inherent meyers itations of voice recognition software. Please read the chart carefully and recognize, using context, where these substitutions have occurred reugsch at, Balta Keenan MD - 12/27/2014 9:33 AM PDT [facility] FACULTY HOSPITALIST PROGRESS NOTE PATIENT NAME: [...] several months at the direction of her wafer fab technician (She sees [facility] as an outpatient) Leukocytosis Assessment & [...] this chart may have been created with [employer] voice recognition software. Occasi onal wrong-word or sound-alike substitutions may have occurred due to the inherent meyers itations of voice recognition software. Please read the chart carefully and recognize, using context, where these substitutions have occurred Sherrie Quintanilla, PharmD - 12/27/2014 2:48 AM PDTFormatting of this note might be different from solange barry. [facility] Progress Note VANCOMYCIN PER PHARMACY PROTOCOL: [...] | | | | | | [place] [address] | | | | | | [phone] | | | | | | | [...] Authorized by: | | | [facility] | | | MEDICAL Emergency [...] included in any documentation of this study. Paint Roller Covers Supervisor and | | | Greens Picker: Abdullahi Palomino MD | | + + + + +---------+ + + | Performing | Address | City/State/[facility] | Phone Number | | [...] + + + | Glucose | 95Comment: Ivorian | 65 - 99 mg/dL | [facility] | | | | Diabetes Association | [...] SACRED | [address] | [place] [address] | | | [facility] | | | | [...] + + | [facility] | [address] | [place] [address] | | | [facility] | [...] + + | YINE BRENDAN | [address] | [place] [address] | | | [facility] | | | | | [...] + + + | Glucose | 98Comment: Ivorian | 65 - 99 mg/dL | [facility] [...] + | YARELISDEMIEligio CARDONA | [address] | [place] [address] | | | [facility] | | | | | [...] SACRED | [address] | [place] [address] | | | [facility] | | | | [...] + + | PROVIDEDEMIE BRENDAN | [address] | [place] [address] | | | [facility] | | | | | [...] + + | AMILCAR [facility] | [address] | [place] [address] | | | [facility] | [...] 23 | 21 - 28 mmol/L | [facility] | | | | | | SACRED | | | | | | HEART | | | | | | MEDICAL | | | | | | CENTER | | | | | | LABORATORY | | + + + + + + | Glucose | 102 (H)Comment: Ivorian | 65 - 99 mg/dL | [facility] | | | | Diabetes Association | [...] + | Performing | Address | City/State/[facility] | Phone Number | | Organization | | | | + + + + + | [facility] | [address] | [place] [address] | | | [facility] | | | | [...] + | [facility] | [address] | [place] [address] | | | [facility] | | | | | [...] + + | [facility] | [address] | [place] [address] | | | [facility] | [...] + + | AMIL[facility] CARDONA | [address] | [place] [address] | | | [facility] | [...] - 1.030 | [facility] | | | [place] | | | SACRED | | | [...] + + | [facility] | [address] | [place] [address] | | | [facility] | | | | | [...] + | AMILCAR CARDONA | [address] | [place] [address] | | | [facility] | | | | | [...] | Tim, Rad Results In - 12/26/2014 10:46 PM [...] + | AMIL[facility] CARDONA | [address] | [place] [address] | | | [facility] | | | | | [...] + + | Glucose | 112 (H)Comment: Ivorian | 65 - 99 mg/dL | [facility] [...] + + | AM[facility] CARDONA | [address] | [place] [address] | | | [facility] | | | | | [...] [address] | [place] [address] | | | HE[facility]ICAL [facility]ENTER | [...] + + | YARELISCARLOS CARDONA | [address] | [place] [address] | | | [facility] | | | | | [...] + | [facility] | [address] | [place] [address] | | | [facility] | [...] -------- ---- | | | 12/26/2014 14:58 [facility] | | | Emergency -3 Skin Problem VISIT COUNT (1 YR.) Visits | | | Medicaid NE Dx Location ------ | | | --------- 2 0 [facility] | | | Center [address] [facility] | | | Center 1 0 [facility] | | | 4 0 Total Note: Visits | | | indicate total known visits. Medicaid [place] Dx are the number of primary | | | diagnoses on the [facility]'s non-emergent dx list. | | | | | | --- Guidelines Source: [facility] Guidelines Date: | | | 09/06/2013 Care Recommendation: Care at [facility] | | | Health Past Medical & [...] Coronary atherosclerosis of unspecified type of vessel, galena or graft | + + | Bradycardia Other specified cardiac dysrhythmias | + + | Unspecified essential hypertension | + + | ASHD (arteriosclerotic heart disease) Coronary atherosclerosis of unspecified type of | | vessel, galena or graft | + + | Hypertension [...] | | | | | | use Holmen 10/325 if ordered. If | | | [...] | | | | | modification) on [facility] 12/29/14 at | | | | | [...] 11:04 | | | | | ONCE, [facility] 12/27/14 at 0745, For 1 | | [...]
--- OUTSIDE RECORDS SUMMARY | ~2019-09-08 | XMS | Encounter Summary ---
Demographics + + + | Address | [address] | | | [place] [address] | + + + | Home Phone | | + + + | Preferred Language | Unknown | + + + | Marital Status | | + + + | Mormon Affiliation | 1041 | + + + | Race | Unknown | + + + | Ethnic Group | Unknown | + + + Author + + + | Author | [facility] | | | and Ankitana | + + + | Organization | [facility] | [...] Team Providers + +------+ + | Care Cultural Historian Name | Role | Phone | + [...] | apnea, | [address] | [place] | | | | | unspecified | [address] [place] | [place], | | | | | type | [place], [place] | [place] [address] | | | | | Procedures | [address] | Phone: | | | | | [place] POLYSOM | Phone: | [phone] | | | | | 6/>YRS SLEEP | [phone] | Fax: | | | | | 4/> ADDL | Fax: | [phone] | | | | | SAJAN ATTND | [phone] | | | | | | [place] POLYSOM | | | | | | [...] | | | | | apnea) | [place] | [place] | | | | | | [place], | [address] Phone: | | | | | | [place] | [phone] | | | | | | [address] | Fax: | | | | | | Phone: | [phone] | | | | | | [phone] | | | | | | | Fax: | | | | | | | [phone] | | +--------+ + + + + + Encounter Details +--------+---------+ + + + | Date | Type | Department | Care Team | Description | +--------+---------+ + + + | 12/01/ | Office | [facility] | Jessy Agarwal MD | Sleep apnea, | | 2018 | Visit | SLEEP DISORDER [address] | [address] | unspecified type | | | | [address] [place] | [place] | (Primary Dx) | | | | [place] [address] | [address] | | | | | [phone] | | | +--------+---------+ + + + [...] and wake time. They usually watch some Worksurfers s eries. She usually goes to bed [...] marijuana(Indica) to help with her sleep. ? Rowe Sleepiness Scale: 2 out of 24 ( [...] HISTORY Past Medical History: Diagnosis Date Acute OR ([facility]) 2011 Anxiety Back pain Bipolar disorder (HCC) Community acquired pneumonia secondary to Haemophilus influenzae Coronary artery disease Depression Dyslipidemia Hepatitis C Heroin abuse ([facility]) Last use was 2011 Hip pain HTN (hypertension) Insomnia Ischemic cardiomyopathy Methamphetamine use ([facility]) 06/07/2018 She denies use and suggests that [...] Cor Angio; Surgeon: Shad Schuler MD; Location: [facility] CV LAB CARDIAC CATHERIZATION Right 06/09/2018 Procedure: CV LHC; Surgeon: Shad Schuler MD; Location: [facility] CV LAB CARDIAC CATHERIZATION Right 06/09/2018 Procedure: CV LV; Surgeon: Shad Schuler MD; Location: [facility] CV LAB CATARACT REMOVAL Left 08/13/2018 Procedure: LEFT EXTRACTION CATARACT WITH LENS IMPLANT; Surgeon: Seamus Richard MD; Loc ation: [facility] MAIN OR CATARACT REMOVAL Right 09/10/2018 Procedure: RIGHT EXTRACTION CATARACT WITH LENS IMPLANT; Surgeon: Seamus Richard MD; Lo cation: [facility] MAIN OR CORONARY ANGIOPLASTY WITH STENT PLACEMENT 05/11/2012 Percutaneous transluminal coronary angioplasty and stenting of the left circumflex with th rombectomy of the left circumflex CORONARY ARTERY BYPASS GRAFT N/A 06/11/2018 Procedure: CORONARY ARTERY BYPASS GRAFT X3 EVH JU; Surgeon: Hemanth Webster MD; Loc ation: [facility] MAIN OR HYSTERECTOMY 1995 ALLERGIES No Known [...] problems. discussed diagno sis via polysomnography / [id number] sleep testing. she has been a smoker [...] this chart may have been created with [employer] voice recognition software. Occasi onal wrong-word or [...] Insomnia Severity Index Insomnia Severity Index 22 Rowe Sleepiness Scale 1. Sitting and reading 0 [...] W | | | | | | [place], | | | | | | [place] [address] | | | | | | [phone] | | | | | | | | +--------+---------+ + + + + + +--------+ + + | Name | Type | Priori | Associated Diagnoses | Order Schedule | | | | ty | | | + + +--------+ + + | * [facility] Sleep [facility] - | Outpatient | [...]
--- OUTSIDE RECORDS SUMMARY | ~2019-09-08 | XMS | Encounter Summary ---
Demographics + + + | Address | [address] | | | [place] [address] | + + + | Home Phone | | + + + | Preferred Language | Unknown | + + + | Marital Status | | + + + | Jehovah'S Witness Affiliation | 1041 | + + + | Race | Unknown | + + + | Ethnic Group | Unknown | + + + Author + + + | Author | [facility] | | | and Ankitana | + + + | Organization | [facility] | | | and [...] Team Providers + +------+ + | Care Weight Engineer Name | Role | Phone | [...] [address] | | | | | [place], | [place], | | | | | [place] [address] | [place] [address] | | | | | [phone] | | | | | | | [...] | | | | | | [place] [address] | | | | | | [phone] | | | | | | | | +--------+---------+ + + + documented as of this encounter Visit Diagnoses Not on filedocumented in this encounter"
--- OUTSIDE RECORDS SUMMARY | ~2019-09-08 | XMS | Encounter Summary ---
Demographics + + + | Address | [address] | | | [place] [address] | + + + | Home Phone [...] | Author | [facility] | | | and Ankitana | + + + | Organization | [facility] [...] Team Providers + +------+ + | Care Real Estate Underwriter Name | Role | Phone | + +------+ + | Kiran Oneill DO | PCP | | + +------+ + Encounter Details +--------+ + + + + | Date | Type | Department | Care Team | Description | +--------+ + + + + | 09/10/ | [facility] | [facility] | Seamus Richard, | | | 2018 | Encounter | MED CTR OR INTRA OP | [address] | | | | | [address] | [place] | | | | | [place] | [address] | | | | | [address] | | | | | | [phone] | | | +--------+ + + + [...] | | | | | | [place] [address] | | | | | | [phone] | | | | | | | [...] HOURS PRN, Pain, Starting | | | [facility] 09/10/18 at 1529, | | | Post-op/Phase II | | + +---+ | | | + +---+ | albuterol 2.5 mg/3 mL nebulizer | | | solution 2.5 mg 2.5 mg, | | | Nebulization, ONCE PRN, Wheezing, | | | Starting [facility] 09/10/18 at 1516, | | | For [...] HR < 40, | | | Starting [facility] 09/10/18 at 1516, For | | | [...] | | | First dose on [facility] 09/10/18 at | | | | | [...] | | | | | CONTINUOUS, Starting [facility] 09/10/18 | | PM PST | | [...] Intravenous, PRN, Shivering, | | | Starting [facility] 09/10/18 at 1516, For | | | [...] | | | PRN, Nausea, Starting [facility] 09/10/18 | | | at 1516, For [...] | | | | | Starting [facility] 09/10/18 at 1244, For | | | [...]
--- OUTSIDE RECORDS SUMMARY | ~2019-09-08 | XMS | Encounter Summary ---
Demographics + + + | Address | [address] | | | [place] [address] | + + + | Home Phone [...] Author | [facility] | | | and Ankitana | + + + | Organization | [facility] | | [...] Team Providers + +------+ + | Care Workday Financials Consultant Name | Role | Phone | [...] + + + + | 02/26/ | Telephone | [place] | Vida Romeo | Hospital Follow-up | | 2014 | | Internal Medicine | ELÍAS Sharma | | | | | Hospitalists [address] | | | | | | [address] | | | | | | [address] | | | | | | [phone] | | | +--------+ + + + [...] | | | | | | [place] [id number] | | | | | | [phone] | | | | | | | | +--------+---------+ + + + documented as of this encounter Visit Diagnoses Not on filedocumented in this encounter"
--- OUTSIDE RECORDS SUMMARY | ~2019-09-08 | XMS | Encounter Summary ---
Demographics + + + | Address | [address] | | | [place] [address] | + + + | Home Phone | | + + + | Preferred Language | Unknown | + + + | Marital Status | | + + + | Moravian Affiliation | 1041 | + + + | Race | Unknown | + + + | Ethnic Group | Unknown | + + + Author + + + | Author | [facility] | | | and Ankitana | + + + | Organization | [facility] | | | and [...] Team Providers + +------+ + | Care China Painter Name | Role | Phone | + [...] | | CARDIOLOGY [address] | Tiffanie MANUAL LATHE MACHINIST [address] | | | | | [place], | [place], | | | | | [place] [address] | [place] [address] | | | | | [phone] | | | | | | | [...] | | | | | | [place] [address] | | | | | | [phone] | | | | | | | | +--------+---------+ + + + documented as of this encounter Procedures + +--------+ + + + | Procedure Name | Priori | Date/Time | Associated Diagnosis | Comments | | | ty | | | | + +--------+ + + + | EXTERNAL LAB: [facility] | Routin | 10/14/2018 | | Results [...] | | ALKALINE PHOSPHATASE | e | | | procedure are in the | | | | | | results section. | + +--------+ + + + | EXTERNAL LAB: | Routin | 10/14/2018 | | Results for this | | BILIRUBIN, TOTAL | e | | | procedure are in the | | | | | | results section. | + +--------+ + + + | EXTERNAL LAB: | Routin | 10/14/2018 | | Results for this | | ALBUMIN | e | | | procedure are in the | | | | | | results section. | + +--------+ + + + | EXTERNAL LAB: | Routin | 10/14/2018 | | Results for this | | PROTEIN, TOTAL | e | | | procedure are [...] this | | DIFFERENTIAL | e | | | procedure are [...] Metabolic Panel (10/14/2018) + +-------+ + + + | Component | Value | Ref Range | Performed | Pathologist | | | | | At | Signature | + +-------+ + + + | Bun/Creatin | 22.6 | 11.0 - 35.0 | | | | ine | | | | | + +-------+ + + + | Albumin/Monserrat | 18 | 14 - 22 | | | | bulin Ratio | | | | | + +-------+ + + + + + | Specimen | + + | Blood | + + External Lab: BUN (10/14/2018) + +-------+ + + + | Component | Value | Ref Range | Performed | Pathologist | | | | | At | Signature | + +-------+ + + + | BUN, | 22 | 8 - 25 | EXTERNAL | | | External | | | LAB | | + +-------+ + + + + +---------+ + + | Performing | Address | City/State/Zipcode | Phone Number | | Organization | | | | + +---------+ + + | EXTERNAL LAB | | | | + +---------+ + + External Lab: Glucose (10/14/2018) + +-------+ + + + | Component | Value | Ref Range | Performed | Pathologist | | | | | At | Signature | + +-------+ + + + | Glucose, | 99 | 65 - 99 | EXTERNAL | | | External | | | LAB | | + +-------+ + + + + +---------+ + + | Performing | Address | City/State/Zipcode | Phone Number | | Organization | | | | + +---------+ + + | EXTERNAL LAB | | | | + +---------+ + + External Lab: ALT (10/14/2018) + +-------+ + + + | Component | Value | Ref Range | Performed | Pathologist | | | | | At | Signature | + +-------+ + + + | ALT, | 16 | 0 - 41 | EXTERNAL | | | External | | | LAB | | + +-------+ + + + + +---------+ + + | Performing | Address | City/State/Zipcode | Phone Number | | Organization | | | | + +---------+ + + | EXTERNAL LAB | | | | + +---------+ + + External Lab: AST (10/14/2018) + +-------+ + + + | Component | Value | Ref Range | Performed | Pathologist | | | | | At | Signature | + +-------+ + + + | AST, | 22 | 0 - 44 | EXTERNAL | | | External | | | LAB | | + +-------+ + + + + +---------+ + + | Performing | Address | City/State/Zipcode | Phone Number | | Organization | | | | + +---------+ + + | EXTERNAL LAB | | | | + +---------+ + + External Lab: Alkaline Phosphatase (10/14/2018) + +---------+ + + + | Component | Value | Ref Range | Performed | Pathologist | | | | | At | Signature | + +---------+ + + + | ALP, | 171 (A) | 40 - 129 | EXTERNAL | | | External | | | LAB | | + +---------+ + + + + +---------+ + + | Performing | Address | City/State/Zipcode | Phone Number | | Organization | | | | + +---------+ + + | EXTERNAL LAB | | | | + +---------+ + + External Lab: Bilirubin, Total (10/14/2018) + +-------+ + + + | Component | Value | Ref Range | Performed | Pathologist | | | | | At | Signature | + +-------+ + + + | Bilirubin, | 0.3 | 0.1 - 1.5 | EXTERNAL | | | Total, | | | LAB | | | External | | | | | + +-------+ + + + + +---------+ + + | Performing | Address | City/State/Zipcode | Phone Number | | Organization | | | | + +---------+ + + | EXTERNAL LAB | | | | + +---------+ + + External Lab: Albumin (10/14/2018) + +-------+ + + + | Component | Value | Ref Range | Performed | Pathologist | | | | | At | Signature | + +-------+ + + + | Albumin, | 4 | 3.5 - 5.2 | EXTERNAL | | | External | | | LAB | | + +-------+ + + + + +---------+ + + | Performing | Address | City/State/Zipcode | Phone Number | | Organization | | | | + +---------+ + + | EXTERNAL LAB | | | | + +---------+ + + External Lab: Protein, Total (10/14/2018) + +-------+ + + + | Component | Value | Ref Range | Performed | Pathologist | | | | | At | Signature | + +-------+ + + + | Protein, | 7 | 6.2 - 8.2 | EXTERNAL | | | Total, | | | LAB | | | External | | | | | + +-------+ + + + + +---------+ + + | Performing | Address | City/State/Zipcode | Phone Number | | Organization | | | | + +---------+ + + | EXTERNAL LAB | | | | + +---------+ + + External Lab: Calcium (10/14/2018) + +-------+ + + + | Component | Value | Ref Range | Performed | Pathologist | | | | | At | Signature | + +-------+ + + + | Calcium, | 8.8 | 8.5 - 10.2 | EXTERNAL | | | External | | | LAB | | + +-------+ + + + + +---------+ + + | Performing | Address | City/State/Zipcode | Phone Number | | Organization | | | | + +---------+ + + | EXTERNAL LAB | | | | + +---------+ + + External Lab: Carbon Dioxide (10/14/2018) + +--------+ + + + | Component | Value | Ref Range | Performed | Pathologist | | | | | At | Signature | + +--------+ + + + | Carbon | 19 (A) | 22 - 29 | EXTERNAL | | | Dioxide, | | | LAB | | | External | | | | | + +--------+ + + + + +---------+ + + | Performing | Address | City/State/Zipcode | Phone Number | | Organization | | | | + +---------+ + + | EXTERNAL LAB | | | | + +---------+ + + External Lab: Chloride (10/14/2018) + +-------+ + + + | Component | Value | Ref Range | Performed | Pathologist | | | | | At | Signature | + +-------+ + + + | Chloride, | 104 | 97 - 107 | EXTERNAL | | | External | | | LAB | | + +-------+ + + + + +---------+ + + | Performing | Address | City/State/Zipcode | Phone Number | | Organization | | | | + +---------+ + + | EXTERNAL LAB | | | | + +---------+ + + External Lab: Potassium (10/14/2018) + +-------+ + + + | Component | Value | Ref Range | Performed | Pathologist | | | | | At | Signature | + +-------+ + + + | Potassium, | 5.1 | 3.5 - 5.3 | EXTERNAL | | | External | | | LAB | | + +-------+ + + + + +---------+ + + | Performing | Address | City/State/Zipcode | Phone Number | | Organization | | | | + +---------+ + + | EXTERNAL LAB | | | | + +---------+ + + External Lab: Sodium (10/14/2018) + +-------+ + + + | Component | Value | Ref Range | Performed | Pathologist | | | | | At | Signature | + +-------+ + + + | Sodium, | 136 | 135 - 145 | EXTERNAL | | | External | | | LAB | | + +-------+ + + + + +---------+ + + | Performing | Address | City/State/Zipcode | Phone Number | | Organization | | | | + +---------+ + + | EXTERNAL LAB | | | | + +---------+ + + External Lab: eGFR (10/14/2018) + +--------+ + + + | Component | Value | Ref Range | Performed | Pathologist | | | | | At | Signature | + +--------+ + + + | eGFR, | 59 (A) | 60 | EXTERNAL | | | External | | | LAB | | + [...] Lab: Creatinine (10/14/2018) + +-------+ + + + | Component | Value | Ref Range | Performed | Pathologist | | | | | At | Signature | + +-------+ + + + | Creatinine, | 1 | 0.7 - 1.3 | EXTERNAL | | | External | | | LAB | | + [...] Differential (10/14/2018) + + + + + + | Component | Value | Ref Range | Performed | Pathologist | | | | | At | Signature | + + + + + + | MCH | 26.3 (A) | 27.0 - 33.0 pg | | | + + + + + + | MCHC | 34.2 | 30.0 - 36.0 % | | | + + + + + + | % Basophils | 0.5 | 2.0 % | | | + + + + + + + + | Specimen | + + | Blood | + + External Lab: CBC (10/14/2018) + + + + + + | Component | Value | Ref Range | Performed | Pathologist | | | | | At | Signature | + + + + + + | WBC, | 10.59 | 4 - 11 | EXTERNAL | | | External | | | LAB | | + + + + + + | HGB, | 11.75 (A) | 12 - 16 | EXTERNAL | | | External | | | LAB | | + + + + + + | HCT, | 34.35 (A) | 35 - 45 | EXTERNAL | | | External | | | LAB | | + + + + + + | PLT, | 318 | 140 - 440 | EXTERNAL | | | External | | | LAB | | + + + + + + | Neutrophils | 74.30 (A) | 37 - 67 | EXTERNAL | | | %, | | | LAB | | | External | | | | | + + + + + + | Lymphocytes | 15.20 (A) | 24 - 44 | EXTERNAL | | | %, | | | LAB | | | External | | | | | + + + + + + | Monocytes | 7.30 | 5 - 12 | EXTERNAL | | | %, External | | | LAB | | + + + + + + | Eosinophils | 2.7 | 0 - 5 | EXTERNAL | | | %, | | | LAB | | | External | | | | | + + + + + + | Neutrophils | 7.87 (A) | 1.3 - 7 | EXTERNAL | | | , Absolute, | | | LAB | | | External | | | | | + + + + + + | Lymphocytes | 1.61 | 0.8 - 3.1 | EXTERNAL | | | , Absolute, | | | LAB | | | External | | | | | + + + + + + | Monocytes, | 0.77 | 0.2 - 1 | EXTERNAL | | | Absolute, | | | LAB | | | External | | | | | + + + + + + | Eosinophils | 0.29 | 0 - 0.8 | EXTERNAL | | | , Absolute | | | LAB | | + + + + + + | Basophils, | 0.05 | 0 - 0.6 | EXTERNAL | | | Absolute | | | LAB | | + + + + + + | RBC, | 4.47 | 3.8 - 5.2 | EXTERNAL | | | External | | | LAB | | + + + + + + | MCV, | 77 (A) | 81 - 99 | EXTERNAL | | | External | | | LAB | | + + + + + + | RDW, | 18.14 (A) | 10.5 - 16 | EXTERNAL | | | External | | | LAB | | + + + + + + + +---------+ + + | Performing | Address | City/State/Zipcode | Phone Number | | Organization | | | | + +---------+ + + | EXTERNAL LAB | | | | + +---------+ + + documented in this encounter Visit Diagnoses Not on filedocumented in this encounter"
--- OUTSIDE RECORDS SUMMARY | ~2019-09-08 | XMS | Encounter Summary ---
Demographics + + + | Address | [address] | | | [place] [address] | + + + | Home Phone [...] + | Author | [facility] | | | and Ankitana | + + + | Organization | [facility] | | | and Ankitana [...] Team Providers + +------+ + | Care Paid Intern Name | Role | Phone | + +------+ + | [place] | PCP | | + [...] + + | 03/20/ | Office | [facility] | Wendy Verma | Odontalgia (Primary | | 2013 | Visit | Division Urgent Care | MD Marcus [address] | Dx) | | | | [address] | DIVISION [place], | | | | | [place], [place] | [place] [address] | | | | | [address] | [phone] | | | | | | | [...] | | | | | [place], | | | | | | [place] [address] | | | | | | [phone] | | | | | | | | +--------+---------+ + + + documented as of this encounter Visit Diagnoses + + | Diagnosis | + + | Odontalgia - Primary Unspecified disorder of the teeth and supporting structures | + + documented in this encounter
--- OUTSIDE RECORDS SUMMARY | ~2019-09-08 | XMS | Encounter Summary ---
Demographics + + + | Address | [address] | | | [place] [address] | + + + | Home Phone | | + + + | Preferred Language | Unknown | + + + | Marital Status | | + + + | Scientology Affiliation | 1041 | + + + | Race | Unknown | + + + | Ethnic Group | Unknown | + + + Author + + + | Author | [facility] | | | and Ankitana | + + + | Organization | [facility] [...] + +------+ + | Care Director Of Strategic Alliances Name | Role | Phone | + +------+ + | Yolanda Lee | PCP | | + +------+ + Encounter Details +--------+---------+ + + + | Date | Type | Department | Care Team | Description | +--------+---------+ + + + | 08/13/ | Surgery | [facility] | Seamus Richard, | LEFT EXTRACTION | | 2018 | | MED CTR OR INTRA OP | MD [address] | CATARACT WITH LENS | | | | [address] | [place], [place] | IMPLANT | | | | [place], [place] | [address] | | | | | [address] | | | | | | [phone] | | | +--------+---------+ + + + [...] | | | | | | [place] [address] | | | | | | [phone] | | | | | | | [...] | | | | LARA WOODS MD ([id number]) | | | | | | on [...] mL/min/1.73m2 | [facility] | | | [facility] | RATE,ESTIMATED | | MEDICAL | | | | mL/min/1.61k9Yafu than | | CENTER - | | [...] [address] | [place] | [phone] | | [facility] | | [address] | | | - LABORATORY | | [...] ST. | [address] | [place] | [phone] | | [facility] | | [address] | | | - LABORATORY | | [...] | | Site | | PRN, Starting [facility] 08/13/18 at | | PM PST [...] eye for procedure, Starting | | | [facility] 08/13/18 at 1034, For 3 doses, [...] | | | | First dose on [facility] 08/13/18 at | | | | [...] | | Surgical | | PRN, Starting [facility] 08/13/18 at | | 18 12:13 | | | Site | | 1213, Intra-op | | PM PST | | | | + +-------+ +-------+---+ + +---+---+ | | | +---+---+ + +-------+ +------+---+ + | lidocaine (PF) 2% injection | Given | 08/13/20 | 1 mL | | Surgical | | PRN, Starting [facility] 08/13/18 at | | 18 11:56 [...] eye for | | | procedure, Starting [facility] 08/13/18 | | | at 1034, [...] | | | | First dose on [facility] 08/13/18 at | | | | [...]
--- OUTSIDE RECORDS SUMMARY | ~2019-09-08 | XMS | Encounter Summary ---
Demographics + + + | Address | [address] | | | [place] [address] | + + + | Home Phone | | + + + | Preferred Language | Unknown | + + + | Marital Status | | + + + | Oriental Orthodox Affiliation | 1041 | + + + | Race | Unknown | + + + | Ethnic Group | Unknown | + + + Author + + + | Author | [facility] | | | and Ankitana | + + + | Organization | [facility] | [...] Team Providers + +------+ + | Care Instrumentation Technician Name | Role | Phone | [...] | | | | | apnea) | [place] | [place], [place] | | | | | | [place], | [address] Phone: | | | | | | [place] | [phone] | | | | | | [address] | Fax: | | | | | | Phone: | [phone] | | | | | | [phone] | | | | | | | Fax: | | | | | | | [phone] | | +--------+ + + + + [...] + + | 10/22/ | Office | [facility] | Carol, | Hypertension, | | 2019 | Visit | CARDIOLOGY [address] | SALVATORE Moreno [address] | unspecified type | | | | [place], | [place], | (Primary Dx); | | | | [place] [id number] | [place] [id number] | Ischemic | | | | [phone] | [phone] | cardiomyopathy; | | | | | [...] + | Blood Pressure | 172/88 | 10/22/2018 8:16 AM | | | | | PST | | + + + + + | Pulse | 58 | 10/22/2018 8:16 AM | | | | | PST | | + + + + + | Temperature | - | - | | + + + + + | Respiratory Rate | 18 | 10/22/2018 8:16 AM | | | | | PST | | + + + + + | Oxygen Saturation | - | - | | + + + + + | Inhaled Oxygen | - | - | | | Concentration | | | | + + + + + | Weight | 76.2 kg (167 lb 15.9 | 10/22/2018 8:16 AM | | | | oz) | PST | | + + + + + | Height | 172.7 cm (5' 8") | 10/22/2018 8:16 AM | | | | | PST | | + + + + + | Body Mass Index | 25.54 | 10/22/2018 8:16 AM | | | | | PST [...] of this encounter Patient Instructions Patient Instructions Tiffanie Medina ARNP - 10/22/2018 8:30 AM PST1. Increase Metoprol ol succinate 100 mg in the morning and 50 mg in the evening 2. check blood pressure and pulse twice daily for two weeks and return the log to our offic e. 3. Referral to sleep specialists for sleep apnea 4. Get echocardiogram done soon 5. Follow up in 2-4 weeks [facility] documented in this encounter Progress Notes Tiffanie Medina ARNP - 10/22/2018 8:30 AM PSTFormatting of this note might be [...] in her stomach) and high blood pressure. Sh eligio had a CT scan of the abdominal [...] were a couple of readings in the 1 90's but she was having a lot [...] chronic, stage II (GFR 60-89 ml/min) H/O [place] (myocardial infarction) Hepatitis C Risk factors for [...] Abnormal ECG Confirmed by MARIANGEL WALTON MD ([id number]) on 10/01/2018 12:13:49 PM none done today LAB RESULTS reviewed during visit today primarily from : LIPID No results found for: CHOL, TRIG, [...] Value 06/09/2018 37 I reviewed records from for office visit on 10/01/2018 w hich is summarized in the HPI. RESULTS- I reviewed reports from : No results found. Above data and testing is reviewed this visit; testing below is historical data unless othe rwise specified. ASSESSMENT: 1. Coronary artery disease with ischemia cardiomyopathy A. History cardiac arrest post unknown stenting in [address] [facility] in [place] B. Echocardiogram 2D , M-mode, Doppler and [...] the inferior and lateral castillo from prior [place], mild destinee infarct ischemia. LARGE SEVERE inferior and Lateral [place]. By Shad Schuler MD G. Left heart [...] She is in class II of the [place] [employer] functional class. Heart failure stage [...] 1. She will have echocardiogram checked in [facility] 2. Increase Metoprolol XL 100 [...] office with, and sodium restricted diet. Yusuf t log and blood pressure log with written education is given to the patient. 6. She will follow up in 2-4 weeks for office visit, or sooner with concerns. She will hav e echocardiogram done prior to visit to follow up her ejection fraction. She also needs to s tart cardiac rehabilitation. Portions of this chart may have been created with [employer] voice recognition software. Occasi onal wrong-word or [...] W | | | | | | [place], | | | | | | [place] [id number] | | | | | | [phone] | | | | | | | | +--------+---------+ + + + + + +--------+ + + | Name | Type | Priori | Associated Diagnoses | Order Schedule | | | | ty | | | + + +--------+ + + | * [facility] [place] [facility] | Outpatient | Routin | PATRICE (obstructive | Ordered: 10/26/2018 | | Sleep Disorder - AMB | Referral | e | sleep apnea) | | | Referral | | | | | + + [...] of unspecified type of | | vessel, council or graft | + + | PATRICE (obstructive sleep apnea) Obstructive sleep apnea (adult) (pediatric) | + + documented in this encounter
--- OUTSIDE RECORDS SUMMARY | ~2019-09-08 | XMS | Encounter Summary ---
Demographics + + + | Address | [address] | | | [place] [address] | + + + | Home Phone | | + + + | Preferred Language | Unknown | + + + | Marital Status | | + + + | Jainism Affiliation | 1041 | + + + | Race | Unknown | + + + | Ethnic Group | Unknown | + + + Author + + + | Author | [facility] | | | and Ankitana | + + + | Organization | [facility] | [...] Team Providers + +------+ + | Care Triple Valve Mechanic Name | Role | Phone | [...] | | NEUROLOGY [address] | [place] [address] | (Primary Dx); Closed | | 08/28/ | | [address] [place] | [phone] | pelvic ring | | 2016 | | [address] | | fracture, with | | | | [phone] | Pablo Booth | routine healing, | | | | | Claudia, DO [address] | subsequent | | | | | [address] [place], | encounter; Acute | | | | | [place] [address] | bronchitis, | | | | | [phone] | unspecified | | | | | | organism; Bipolar | | | | | Maite Delacruz MD | affective disorder | | | | | [address] | in remission (HCC); | | | | | [place], [place] | Ischemic | | | | | [address] | cardiomyopathy; | | | | | [...] iron deficiency anemia FOLLOW UP: SALVATORE Ventura [address] [facility] [id number] Go to next available appointment [facility] [address] [facility] [address] DISCHARGE DISPOSITION: Home with Home Health CONSULTANTS THIS ADMISSION: None HOSPITAL COURSE: Ms. Pichardo is a 61-year-old female admitted to [facility] on N ovember 11 for a left inferior and superior pubic rami fractures and a right sacral alar fra cture. She was discharged to home November 15 with home health services and has reportedly done poorly with uncontrolled pain. Home Health staff advised readmission for evaluation for acute inpatient rehabililtation, but she was sent to [facility]. She was de nied admission to [facility]. She was noted to have a [...] Unknown Yellow Clarity, UA Unknown Clear Specific [place] Latest Ref Range: 1.001-1.030 1.015 PH UA [...] provider to follow patient YOLANDA RICHMOND Ernestine Medical Reimbursement Manager needed No TIME SPENT ON DISCHARGE: greater than 30 minutes / Observation Stay Electronically signed by: Pablo Booth DO 08/28/2016 18:03Electronically si gned by Pablo Booth DO at 08/28/2016 6:03 PM PSTdocumented in this encount er Discharge Instructions AttachmentsThe following attachments cannot be sent through Care Everywhere.ANEMIA, IRON-DE FICIENCY (ADULT) (GERMAN)OSTEOPOROSIS, LIVING WITH: PREVENTING FRACTURES (GERMAN)documente d in this encounter Medications at Time [...] to stay with Dtr Hanna Nash[address] [facility] # [phone]. Electronically signed by: Rhona Ledesma RN 08/27/2016 [...] Date of Service: 08/27/2016 PCP: Yolanda Richmond [facility] Hospital Day: Hospital Course: Ms. Pichardo is a 61-year-old female admitted to [facility] on N for a left inferior and superior pubic rami fractures and a right sacral alar fra cture. She was discharged to home August 20 with home health services and has reportedly done poorly with uncontrolled pain. Home Health staff advised readmission for evaluation for acute inpatient rehabililtation, but she was sent to [facility] instead of [facility]. 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 Disc harged home with home health and admitted to [facility] for intractable pain. Taking Oxy 10mg [...] Date of Service: 08/26/2016 PCP: Yolanda Richmond [facility] Hospital Day: Hospital Course: Ms. Pichardo is a 61-year-old female admitted to [facility] on N for a left inferior and superior pubic rami fractures and a right sacral alar fra cture. She was discharged to home August 20 with home health services and has reportedly done poorly with uncontrolled pain. Home Health staff advised readmission for evaluation for acute inpatient rehabililtation, but she was sent to [facility] instead of [facility]. She [...] with home health for continued PT from [facility] - await repeat PT / OT [...] to a SNF from her admission at [facility] (toxicology screen ordered this am). Review of [...] Single Lumen 08/25/16 2216 Left Lateral Forearm zdtj-xkx-ctounx [address] ter system 22 gauge;1 in length [...] Negative KETONES UA Negative Negative mg/dL Specific [place] 1.015 1.001 - 1.030 PH UA 7.0 [...] Removed therapy: Atorvastatin 40 mg (not taking) SINGER SONGWRITER Medications Taking Prior to Admission medications Medication [...] [x] [] Tdap [] [] [x] [] SINGER SONGWRITER Med List Sources Medications reported by the [...] performed and electronically signed by Azra Hernandez, Multi Share Program Coordinator 08/25 18:25 Associated attestation - George Sultana PharmD - 08/25/2016 6:42 PM PSTReviewed SINGER SONGWRITER med l ist changes and agree with discrepancies noted by ekg/ecg technician. Electronically signed by: George Sultana PHARMD 08/25/2016 18:42 Claudia Nguyễn Proposal Manager-Clinical - 08/25/2016 6:15 PM PSTSLRI renal case manager receive d referral. Clinical information reviewed. Await therapy input to assess IPR determination. Will follow progress for discharge recommendations. Electronically signed by: Claudia Nguyễn FREIGHT DISPATCHER 08/25/2016 18:15 documented in this encounter Plan of Treatment +--------+---------+ + + + | Date | Type | Specialty | Care Team | Description | +--------+---------+ + + + | 10/28/ Office | Cardiology | Carol, | | | 2019 | Visit | | SALVATORE Moreno [address] | | | | | | [place], | | | | | | [place] [address] | | | | | | [phone] | | | | | | | [...] + | [facility] | [address] | [place] [address] | | | [facility] | | | | [...] + + | [facility] | [address] | [place] [address] | | | [facility] | | | | | LABORATORY | [...] | ANNE MARIE PICHARDO Study Date: 08/27/2016MRN: [id number] | | | [facility]DOB: 1955 | | | Age: 61 yrs Gender: | | | FemaleHeight: 62 in Weight: 140 lb | | | BSA: 1.6 m2 | | | HR: 81 Rhythm: SRHistory: CAD, | | | ACUTE OH, ICM, HTN, ANXIETY, DEPRESSIONReason For Study: murmur, [...] | |Ordering Physician: PABLO BOOTH | | |Java Development Manager: Parish Diaz | | |[id number]: | | | | | + + ---+ + + | Procedure Note | + + | Tim, Rad Results In - 08/27/2016 1:35 PM PST | | Adult Echo | | Report | | | | Name: ANNE MARIE PICHARDO Study Date: 08/27/2016 | | Patient Location: [place] [address] | | : 1955 Age: 61 yrs Gender: Female | | Height: 62 in Weight: 140 lb BSA: 1.6 m2 | | HR: 81 Rhythm: SR | | History: CAD, ACUTE OH, ICM, HTN, ANXIETY, DEPRESSION | | Reason [...] | Ordering Physician: PABLO BOOTH | | Java Development Manager: Parish Diaz | | [id number]: | + + Procalcitonin (08/27/2016 5:30 AM [...] + + | [facility] | [address] | [place] [address] | | | [facility] | | | | | LABORATORY | [...] + | YARELISDEMIEligio SATURNINOFAUSTO | [address] | [place] [address] | | | [facility] | [...] CARDONA | [address] | [place] [address] | | | [facility] | | | | | LABORATORY | [...] + | [facility] | [address] | [place] [address] | | | [facility] | | | | | LABORATORY | [...] + + | YARELISDEMIEligio BRENDAN | [address] | [place] [address] | | | [facility] | | | | | LABORATORY | [...] + + | [facility] | [address] | [place] [address] | | | [facility] | | | | | LABORATORY | [...] [address] | [place] [address] | | | [facility] | | | | [...] + | YARELISCARLOS CARDONA | [address] | [place] [address] | | | [facility] | | | | [...] + | [facility] | [address] | [place] [address] | | | [facility] | [...] + | [facility] | [address] | [place] [address] | | | [facility] | [...] + + | [facility] | [address] | [place] [address] | | | [facility] | [...] + | [facility] | [address] | [place] [address] | | | [facility] | | | | | LABORATORY | [...] + + | [facility] | [address] | [place] [address] | | | [facility] | | | | | LABORATORY | [...] + | [facility] | [address] | [place] [address] | | | [facility] | | | | | LABORATORY | [...] - 1.030 | [facility] | | | [place] | | | [facility] | | | [...] + + | [facility] | [address] | [place] [address] | | | [facility] | | | | | LABORATORY | [...] + + | Glucose | 127 (H)Comment: Zimbabwean | 65 - 99 mg/dL | [facility] [...] | [address] | [place] [address] | | | [facility] | [...] + + | YARELISDEMIEligio BRENDAN | [address] | [place] [address] | | | [facility] | | | | [...] | | | | | Intravenous, ONCE, [place]accoon 08/25/16 | | PM PST | | [...]
--- OUTSIDE RECORDS SUMMARY | ~2019-09-08 | XMS | Encounter Summary ---
Demographics + + + | Address | [address] | | | [place] [address] | + + + | Home Phone [...] | Author | [facility] | | | and Ankitana | + + + | Organization | [facility] [...] Team Providers + +------+ + | Care Acupuncturist Name | Role | Phone | + [...] + + | 04/22/ | Office | [facility] | Carol, | Hypertension, | | 2019 | Visit | CARDIOLOGY [address] | SALVATORE Moreno [address] | unspecified type | | | | [place], | [place], | (Primary Dx); | | | | [place] [address] | [place] [address] | Ischemic | | | | [phone] | [phone] | cardiomyopathy; ASHD | | | | [...] encounter Patient Instructions Patient Instructions Alla Manjarrez, Local Delivery Truck Driver - 04/22/2019 11:30 AM PDT1. The cur [...] chronic, stage II (GFR 60-89 ml/min) H/O [place] (myocardial infarction) Hepatitis C Risk factors for [...] Abnormal ECG Confirmed by MARIANGEL WALTON MD ([id number]) on 10/01/2018 12:13:49 PM LAB RESULTS reviewed during visit today primarily from [facility]: LIPID No results found for: CHOL, [...] NULL 05/16/2012 RESULTS- I reviewed reports from [facility]: Above data and testing is reviewed this visit; testing below is historical data unless othe rwise specified. ASSESSMENT: 1. Coronary artery disease with ischemic cardiomyopathy A. History cardiac arrest post unknown stenting in [address] [facility] in [place] B. Echocardiogram 2D , M-mode, Doppler and [...] the inferior and lateral castillo from prior [place], mild destinee infarct ischemia. LARGE SEVERE inferior and Lateral IN. By Shad Schuler MD G. Left heart cath on 06/09/18 shows, severely calcified coronaries w ith severe three-vessel CAD including 60% distal left main, 90% ostial circumflex, 99% proxi mal circumflex, obtuse marginal 4 and 5 disease, ostial and proximal 40% LAD, 95% ostial sep eleni [employer] assistant manager, 70% mid and distal LAD, 100% mid [...] function. Trace TR, pulmonic valve normal Trace MI, visible portions of ascendin g aorta and [...] no limitations of act ivities of the [place] [employer] functional class. Heart failure stage [...] visit, or sooner with concerns. Alla Tuttle, Local Delivery Truck Driver am acting as a scribe on behalf of, and in the presenc e of SALVATORE Gonzales. - Alla Manjarrez Local Delivery Truck Driver 04/22/2019 11:40 Tiffanie Tuttle ARNP, personally performed the services described in this documentati on, as scribed in my presence and it is both accurate and complete. -SALVATORE Gonzales 04/22/2019 Portions of this chart may have been created with Penneo voice recognition software. Occasi onal wrong-word or [...] W | | | | | | [place], | | | | | | [place] [address] | | | | | | [phone] | | | | | | | | +--------+---------+ + + + documented as of this encounter Visit Diagnoses + + | Diagnosis | + + | Hypertension, unspecified type - Primary | + + | Ischemic cardiomyopathy Other specified forms of chronic ischemic heart disease | + + | ASHD (arteriosclerotic heart disease) Coronary atherosclerosis of unspecified type of | | vessel, chilkoot or graft | + + | Chest pain syndrome Chest pain, unspecified | + + | Cardiac LV ejection fraction 30-35% Other symptoms involving cardiovascular system | + + | Cardiac arrest with ventricular fibrillation (HCC) | + + | Mixed hyperlipidemia | + + documented in this encounter
--- OUTSIDE RECORDS SUMMARY | ~2019-09-08 | XMS | Encounter Summary ---
Demographics + + + | Address | [address] | | | [place] [address] | + + + | Home Phone [...] | Author | [facility] | | | and Ankitana | + + + | Organization | [facility] | [...] Team Providers + +------+ + | Care Rooms Director Name | Role | Phone | + +------+ + | Yolanda Lee | PCP | | + +------+ + Encounter Details +--------+ + + + + | Date | Type | Department | Care Team | Description | +--------+ + + + + | 02/27/ | Hospital | [facility] | Jesse Siddiqi MD | Cellulitis and | | 2015 | Encounter | HEART MED CTR | [address], | abscess of hand, | | | | CARDIAC MEDICAL [address] | [address] floor [place], | except fingers and | | | | [address] [place], | [place] [address] | thumb; Bacteremia | | | | [place] [address] | [phone] | due to Streptococcus | | | | [phone] | | / Sepsis | +--------+ + [...] | | | | | | [place] [address] | | | | | | [phone] | | | | | | | [...]
--- OUTSIDE RECORDS SUMMARY | ~2019-09-08 | XMS | Encounter Summary ---
Demographics + + + | Address | [address] | | | [place] [address] | + + + | Home Phone [...] | [facility] | | | and Ankitana | + + + | Organization | [facility] | | [...] Team Providers + +------+ + | Care Family Assessment Worker Name | Role | Phone | [...] pelvis | | | | [address] [place], | [place] | without disruption | | | | [place] [address] | [place] [address] | of pelvic ring with | | | | [phone] | [phone] | routine healing | | | | [...] | | | | | | [place] [address] | | | | | | [phone] | | | | | | | [...]
--- OUTSIDE RECORDS SUMMARY | ~2019-09-08 | XMS | Encounter Summary ---
Demographics + + + | Address | [address] | | | [place] [address] | + + + | Home Phone [...] | Author | [facility] | | | and Ankitana | + + + | Organization | [facility] | [...] Team Providers + +------+ + | Care Shutdown Coordinator Name | Role | Phone | [...] [place] | | | | | CENTER [address] | | | [address] | [place] [address] | | | | | [place] | [phone] | | | | | [address] | | | | | | [phone] | | | +--------+ + + + [...] | | | | | | [place] [address] | | | | | | [phone] | | | | | | | | +--------+---------+ + + + documented as of this encounter Visit Diagnoses Not on filedocumented in this encounter"
--- OUTSIDE RECORDS SUMMARY | ~2019-09-08 | XMS | Encounter Summary ---
Demographics + + + | Address | [address] | | | [place] [address] | + + + | Home Phone | | + + + | Preferred Language | Unknown | + + + | Marital Status | | + + + | Adventism Affiliation | 1041 | + + + | Race | Unknown | + + + | Ethnic Group | Unknown | + + + Author + + + | Author | [facility] | | | and Ankitana | + + + | Organization | [facility] | [...] Team Providers + +------+ + | Care Waiter/Waitress Buffet Name | Role | Phone | + +------+ + | Yolanda Lee | PCP | | + +------+ + Encounter Details +--------+ + + + + | Date | Type | Department | Care Team | Description | +--------+ + + + + | 08/13/ | Hospital | [facility] | RichardSeamus W, | | | 2018 | Encounter | MED CTR OR INTRA OP | [address] | | | | | [address] | [place], [place] | | | | | [place], [place] | [address] | | | | | [address] | | | | | | [phone] | | | +--------+ + + + [...] [place], | | | | | | [place] [address] | | | | | | [phone] | | | | | | | [...] | | | | LARA WOODS MD ([id number]) | | | | | | on [...] | | | | | mmol/L | STBrittnee [facility] | | | | [...] | | GLOMERULAR FILTRATION | mL/min/1.73m2 | ANG | | | FINNISH | RATE,ESTIMATED | | MEDICAL | | | | mL/min/1.75p5Cami than | | CENTER - | | [...] | | | | | mg/dL | ANG | | | | | | MEDICAL | | | | | | CENTER - | | | | | | LABORATORY | | + + + + + + | Albumin | 3.6 | 3.2 - 5.0 g/dL | [facility] | | | | | | ANG | | | | | | [...] + | [facility] | [address] | [place] | [phone] | | [facility] | | [address] | | | - LABORATORY | | [...] + + | [facility] | [address] | [place] | [phone] | | [facility] | | [address] | | | - LABORATORY | | | | + + + + + documented in this encounter Visit Diagnoses + + | Diagnosis | + + | Kidney disease, chronic, stage II (GFR 60-89 ml/min) Chronic kidney disease, Stage II | | (mild) | + + | GERD (gastroesophageal reflux disease) Esophageal reflux | + + | Bipolar disorder (HCC) Bipolar disorder, unspecified | + + | Smoker - Daily Tobacco use disorder | + + | Hypertension Unspecified essential hypertension | + + | Hepatitis C Unspecified viral hepatitis C without hepatic coma | + + documented in this encounter [...] ONCE | | | PRN, Nausea, Starting [facility] 08/13/18 | | | at 1222, For 1 dose, | | | Recovery/Phase I | | + +---+ | | | + +---+ | phenylephrine (HADLEY-SYNEPHRINE) | | | 10 % ophthalmic solution 1 drop | | | 1 drop, Left Eye, EVERY 5 MIN | | | PRN, Other, prep eye for | | | procedure, Starting [facility] 08/13/18 | | | at 1034, [...] | | | | First dose on [facility] 08/13/18 at | | | | [...]
--- OUTSIDE RECORDS SUMMARY | ~2019-09-08 | XMS | Encounter Summary ---
Demographics + + + | Address | [address] | | | [place] [address] | + + + | Home Phone [...] + | Author | [facility] | | | and Ankitana | + + + | Organization | [facility] | | | [...] Team Providers + +------+ + | Care Shallot Cleaner Name | Role | Phone | + +------+ + PCP | Unavailable | + +------+ + Encounter Details +--------+ + + + + | Date | Type | Department | Care Team | Description | +--------+ + + + + | 11/25/ | Hospital | [facility] | [place], | | | 2004 | Encounter | FAMILY EMERGENCY | [address] | | | | | [place] [address] | [address] | | | | | [address] | [place] | | | | | [place] | [address] | | | | | [address] | | | | | | [phone] | | | +--------+ + + + [...] | | | | | | [place] [address] | | | | | | [phone] | | | | | | | | +--------+---------+ + + + documented as of this encounter Visit Diagnoses Not on filedocumented in this encounter"
--- OUTSIDE RECORDS SUMMARY | ~2019-09-08 | XMS | Encounter Summary ---
Demographics + + + | Address | [address] | | | [place] [address] | + + + | Home Phone [...] | Author | [facility] | | | and Ankitana | + + + | Organization | [facility] [...] Team Providers + +------+ + | Care Addiction Professional Name | Role | Phone | + +------+ + | Yolanda Lee | PCP | | + +------+ + Encounter Details +--------+ + + + + | Date | Type | Department | Care Team | Description | +--------+ + + + + | 03/11/ | Hospital | [facility] | Jesse Siddiqi MD | | | 2015 | Encounter | HEART MED CTR | [address], | | | | | NEPHROLOGY [address] | [address] floor [place], | | | | | [address] [place], [place] | [place] [address] | | | | | [address] | [phone] | | | | | [phone] | | | +--------+ + + + [...] | | | | | | [place] [address] | | | | | | [phone] | | | | | | | [...]
--- OUTSIDE RECORDS SUMMARY | ~2019-09-08 | XMS | Encounter Summary ---
Demographics + + + | Address | [address] | | | [place] [address] | + + + | Home Phone | | + + + | Preferred Language | Unknown | + + + | Marital Status | | + + + | Yazidi Affiliation | 1041 | + + + | Race | Unknown | + + + | Ethnic Group | Unknown | + + + Author + + + | Author | [facility] | | | and Ankitana | + + + | Organization | [facility] | | | and [...] Team Providers + +------+ + | Care Embroidery Supervisor Name | Role | Phone | [...] | | | CENTER [address] | [place], [place] | | | | | [address] | [address] | | | | | [place] | | | | | | [address] | | | | | | [phone] | | | +--------+ + + + [...] | | | | | | [place] [address] | | | | | | [phone] | | | | | | | | +--------+---------+ + + + documented as of this encounter Visit Diagnoses Not on filedocumented in this encounter"
--- OUTSIDE RECORDS SUMMARY | ~2019-09-08 | XMS | Encounter Summary ---
Demographics + + + | Address | [address] | | | [place] [address] | + + + | Home Phone [...] | Author | [facility] | | | and Ankitana | + + + | Organization | [facility] | | [...] Team Providers + +------+ + | Care Order Checker Name | Role | Phone | + +------+ + | Yolanda Lee | PCP | | + +------+ + Encounter Details +--------+ + + + + | Date | Type | Department | Care Team | Description | +--------+ + + + + | 08/13/ | Hospital | [facility] | RichardSeamus W, | | | 2018 | Encounter | MED CTR OR INTRA OP | [address] | | | | | [address] | [place], [place] | | | | | [place], [place] | [address] | | | | | [address] | | | | | | [phone] | | | +--------+ + + + [...] [place], | | | | | | [place] [address] | | | | | | [phone] | | | | | | | [...] | | | | LARA WOODS MD ([id number]) | | | | | | on [...] | mL/min/1.73m2 | ANG | | | [place] | RATE,ESTIMATED | | MEDICAL | | | | mL/min/1.67o1Zval than | | CENTER - | | [...] + | [facility] | [address] | [place] | [phone] | | [facility] | | [address] | | | - LABORATORY | | [...] [address] | [place] | [phone] | | [facility] | | [address] | | | - LABORATORY | | [...] ONCE | | | PRN, Nausea, Starting [facility] 08/13/18 | | | at 1222, [...]
--- OUTSIDE RECORDS SUMMARY | ~2019-09-08 | XMS | Encounter Summary ---
Demographics + + + | Address | [address] | | | [place] [address] | + + + | Home Phone [...] | Author | [facility] | | | and Ankitana | + + + | Organization | [facility] | [...] Team Providers + +------+ + | Care Grid Trimmer Name | Role | Phone | + +------+ + | Yolanda Lee | PCP | | + +------+ + Reason for Visit +---------+ + | Reason | Comments | +---------+ + | Abscess | | +---------+ + Encounter Details +--------+ + + + + | Date | Type | Department | Care Team | Description | +--------+ + + + + | 12/26/ | Emergency | [facility] | Susie Jackson, | Abscess of arm | | 2017 | | [facility] | PA-C [address] | (Primary Dx) | | | | EM[facility] | [address] [place], [place] | | | | | [address] | [address] | | | | | [place], [place] | | | | | | [address] | | | | | | [phone] | | | +--------+ + + + [...] + + + | Blood Pressure | 151/73 | 12/26/2016 4:32 AM | | | | | PDT | | + + + + + | Pulse | 83 | 12/26/2016 4:32 AM | | | | | PDT | | + + + + + | Temperature | 36.7 C (98 F) | 12/26/2016 4:32 AM | | | | | PDT | | + + + + + | Respiratory Rate | 18 | 12/26/2016 4:32 AM | | | | | PDT | | + + + + + | Oxygen Saturation | 97% | 12/26/2016 4:32 AM | | | | | PDT | | + + + + + | Inhaled Oxygen | - | - | | | Concentration | | | | + + + + + | Weight | 68 kg (150 lb) | 12/26/2016 1:49 AM | | | | | PDT | | + + + + + | Height | 172.7 cm (5' 8") | 12/26/2016 1:49 AM | | | | | PDT | | + + + + + | Body Mass Index | 22.81 | 12/26/2016 1:49 AM | | | | | PDT [...] as of this encounter Discharge Instructions Instructions Susie Jackson PA-C - 12/26/2016Please apply the ointment twice a day x 7d to your abscess Please FINISH all your antibiotics Ibuprofen for pain as needed Hot pack this frequently throughout the day AttachmentsThe following attachments cannot be sent through Care Everywhere.ABSCESS, ANTIBI OTIC TREATMENT ONLY (MALAWIAN)documented in this encounter Medications at Time of [...] | | Take 1 tablet by | 14 | 0 | 12/27/19 | | | sulfamethoxazole-tri | mouth 2 times daily | tablet | | 17 | 7 | | methoprim (BACTRIM | for 7 days. | | | | | | DS) 800-160 mg per | | | | | [...] [address] | | | | | | [place], | | | | | | [place] [address] | | | | | | [phone] | | | | | | | | +--------+---------+ + + + documented as of this encounter Procedures + +--------+ + + + | Procedure Name | Priori | Date/Time | Associated Diagnosis | Comments | | | ty | | | | + +--------+ + + + | CULTURE, WOUND, | STAT | 12/26/2016 | | Results for this | | SMEAR | | 5:11 AM | | procedure are in the | | | | PDT | | results section. | + +--------+ + + + documented in this encounter Results Culture, Wound, Smear (12/26/2016 5:11 AM PDT) + + + + + + | Component | Value | Ref Range | Performed | Pathologist | | | | | At | Signature | + + + + + + | Specimen | Abscess | | [facility] | | Source [...] | | [facility] | | | | 1008 ON 12/27/16 | | HEART | | | | [...] + + + + | Status | 12/28/2016 Final | | [facility] | | | [...] + + | [facility] | [address] | [place] [address] | | | [facility] | | | | | LABORATORY | | | | + + + + + documented in this encounter Visit Diagnoses + + | Diagnosis | + + | Abscess of arm - Primary Cellulitis and abscess of upper arm and forearm | + + documented in this encounter Administered Medications + +--------+ +------+------+ + | Medication Order | MAR | Action | Dose | Rate | Site | | | Action | Date | | | | + +--------+ +------+------+ + | cefTRIAXone (ROCEPHIN) 1 g in | Given | 12/27/19 | 1 g | | Glut-Lef | | lidocaine IM syringe (350 mg/mL) | | 17 5:19 | | | t | | 1 g (rounded from 1,000 mg), | | AM PDT | | | | | Intramuscular, ONCE, [facility] 12/26/16 | | | | | | | at 0450, For 1 dose, Keep in | | | | | | | refrigerator. For IM use only. | | | | | | | Reconstitute each 1 gm vial | | | | | | | with 2.1 mL = 350 mg/mL 250 mg | | | | | | | = 0.71 mL 500 mg = 1.43 mL 1 gm = | | | | | | | 2.86 mL, Indications: SKIN AND | | | | | | | SOFT TISSUE ABSCESS | | | | | | + +--------+ +------+------+ + +---+---+ | | | +---+---+ + +-------+ + +---+---+ | HYDROcodone-acetaminophen | Given | 12/27/19 | 1 tablet | | | | (NORCO) 10-325 mg per tablet 1 | | 17 5:10 | | | | | tablet 1 tablet, Oral, ONCE, [facility] | | AM PDT | | | | | 12/26/16 at 0450, For 1 dose | | | | | | + +-------+ + +---+---+ +---+---+ | | | +---+---+ + + + +---+---+---+ | mupirocin (BACTROBAN) 2% | Given by | 12/27/19 | | | | | ointment Topical, ONCE, [facility] | Other | 17 5:18 | | | | | 12/26/16 at 0450, For 1 dose | | AM PDT | | | | + + + +---+---+---+ +---+---+ | | | +---+---+ + +-------+ +------+---+---+ | ondansetron (ZOFRAN ODT) | Given | 12/27/19 | 4 mg | | | | disintegrating tablet 4 mg 4 mg, | | 17 5:10 | | | | | Oral, ONCE, [facility] 12/26/16 at 0450, | | AM PDT | | | | | For 1 dose | | | | | | + +-------+ +------+---+---+ +---+---+ | | | +---+---+ + +-------+ + +---+---+ | sulfamethoxazole-trimethoprim | Given | 12/27/19 | 1 tablet | | | | (BACTRIM DS) 800-160 mg per | | 17 5:15 | | | | | tablet 1 tablet 1 tablet, Oral, | | AM PDT | | | | | ONCE, [facility] 12/26/16 at 0450, For 1 | | | | | | | dose, Indications: SKIN AND SOFT | | | | | | | TISSUE ABSCESS | | | | | | + +-------+ + +---+---+ +---+---+ | | | +---+---+ documented in [...]
--- OUTSIDE RECORDS SUMMARY | ~2019-09-08 | XMS | Encounter Summary ---
Demographics + + + | Address | [address] | | | [place] [address] | + + + | Home Phone [...] + + | Author | [facility] | | | and Ankitana | + + + | Organization | [facility] | | | and [...] Team Providers + +------+ + | Care Steam Drier Tender Name | Role | Phone | [...] | | CARDIOLOGY [address] | Tiffanie MOTOR VEHICLE EMISSIONS INSPECTOR [address] | | | | | [place], | [place], | | | | | [place] [address] | [place] [address] | | | | | [phone] | | | | | | | [...] | | | | | | [place] [address] | | | | | | [phone] | | | | | | | [...]
--- OUTSIDE RECORDS SUMMARY | ~2019-09-08 | XMS | Encounter Summary ---
Demographics + + + | Address | [address] | | | [place] [address] | + + + | Home Phone | | + + + | Preferred Language | Unknown | + + + | Marital Status | | + + + | Yazidism Affiliation | [id number] | + + + | Race | Unknown | + + + | Ethnic Group | Unknown | + + + Author + + + | Author | [facility] | | | and Ankitana | + + + | Organization | [facility] | [...] Team Providers + +------+ + | Care Tube Filler Name | Role | Phone | + [...] [facility] | | | | | C[facility] [address] | | | | | [address] | [place] [address] | | | | | [place] | [phone] | | | | | [address] | | | | | | [phone] | | | +--------+ + + + [...] | | | | | | [place] [address] | | | | | | [phone] | | | | | | | | +--------+---------+ + + + documented as of this encounter Visit Diagnoses Not on filedocumented in this encounter"
--- OUTSIDE RECORDS SUMMARY | ~2019-09-08 | XMS | Encounter Summary ---
Demographics + + + | Address | [address] | | | [place] [address] | + + + | Home Phone [...] | Author | [facility] | | | and Ankitana | + + + | Organization | [facility] [...] Providers + +------+ + | Care Country Printer Apprentice Name | Role | Phone | + +------+ + PCP | Unavailable | + +------+ + Encounter Details +--------+ + + + + | Date | Type | Department | Care Team | Description | +--------+ + + + + | 01/18/ | Hospital | [facility] | Bello Hughes MD | | | 2006 | Encounter | [facility] | [address] | | | | | CENTER [address] | [place], [place] | | | | [address] | [address] | | | | | [place] | | | | | | [address] | | | | | | [phone] | | | +--------+ + + + [...] | | | | | | [place] [address] | | | | | | [phone] | | | | | | | | +--------+---------+ + + + documented as of this encounter Visit Diagnoses Not on filedocumented in this encounter"
--- OUTSIDE RECORDS SUMMARY | ~2019-09-08 | XMS | Encounter Summary ---
Demographics + + + | Address | [address] | | | [place] [address] | + + + | Home Phone [...] Author | [facility] | | | and Ankitana | + + + | Organization | [facility] | | [...] Team Providers + +------+ + | Care Intellectual Property Lawyer Name | Role | Phone | + [...] | INTRA OP [address] | [facility] [address] | | | | | Ave [place], [place] | [place] [address] | | | | | [address] | [phone] | | | | | [phone] | | | +--------+---------+ + + + [...] Pharmacist notified and gave patient number for [facility] pharmacy to transfer medications in AM. Given night time pain medications prior to leaving . The AVS was reviewed with patient and family with no pending questions or concerns. All b elongings were collected from the room and sent with the family. The pt is discharging home with family in [place]. New FWW sent with patient. No further questions and all teaching demo nstrated back to RN. Plan for d/c at 1800 when family arrives. Juancho Dalal AR NP - 06/15/2018 12:01 PM PDT [facility] Discharge Summary [...] ons. She was recently released from senior living before arriving at the ER and our older adult social work specialist has confirmed that she [...] and occupational therapy for post-op rehab. - [facility]. Disposition: Home with family. Patient was advised to call our office or their assistant offset press operator with any questions. Follow-Up: Follow-up Information SALVATORE Ventura. Go on 06/23/2018. Specialty: Nurse Practitioner Why: Hospital follow up scheduled at 11:[address] Roa Contact information: [address] [facility] [address] Hemanth Webster MD. Schedule an appointment as soon as possible for a visit on 06/29/2018 . Specialty: Cardiothoracic Surgery Why: 11:30 AM Contact information: [address], [place] [address] [facility] [address] Schedule an appointment as soon as possible for a visit with [facility]. Why: Please call to schedule your 1 month follow-up with cardiology. Contact information: [address] [place] [address] [facility] [address] Time spent on discharge planning: greater than 30 minutes CABG Checklist ACEI/ARB/ARNI prescribed: No - Hypotension Aspirin prescribed: Not addressed Beta mateus (evidence-based) prescribed: Yes Beta mateus prescribed: N/A - LV EF is less than 41% High intensity statin prescribed: Yes Referral to cardiac rehab: Yes Tobacco cessation counseling provided: Yes [facility] [address], [address] [address] [place] [address] Portions of this chart may have been created with Goldbely voice recognition software. Occasi onal wrong-word or [...] breath, please call Luis Alfredo estrada at [phone]. 2. For problems or concerns with your incision or your chest, please call [facility]) at [phone]. After Coronary Artery Bypass Surgery When you [...] by medication, call your healthcare pr ovider. [phone] [facility], [address] [place] [address], [place] [address]. All rights reserve d. This information is [...] | | | | infarction) ([facility]), | | | | | [...] Pt states she was brought to [facility] by [facility] but states she is no l onger in custody. No guards at the door. RIZWANA Interface Engineer suggested SW contact senior living to confirm. RIZWANA spoke with [facility] who confirms pt was released. RIZWANA spoke with pt regarding discharge plan. Pt plans to discharge to friend's home. SW available should further discharg e planning needs arise. Keith Lopez MD - 06/15/2018 8:45 AM PDT [facility] PATIENT NAME: Smitha Fletcher : 1955: [...] dilol. 2. Follow-up requested. Keith Harp MD, [facility] Portions of this chart were created with Goldbely voice recognition software. Occasional wro ng-word or "sound-alike" substitutions may have occurred due to the inherent limitations of voice recognition software. Please read the chart carefully and recognize, using context, w here those substitutions have occurred. eonte Lee MD - 06/15/2018 7:15 AM PDTFormatting of this no te might be different from the original. [facility] Pt. Name/Age/: Smitha Fletcher 62 y.o. 1955 Med. Record Number: [id number] Date of admission: 06/07/2018 POD # 4 Procedure: CABG X 3 Surgeon: Eleanor Subjective New complaints: poor sternal precautions. No c/o this morning. [facility] Not sure where she is going. [...] signed by: Hector Decker PA-C Cardiothoracic Surgery [facility] [address], [place] [address] [place], [place] [id number] 06/15/2018 7:15 [facility] Agree with detailed plan nicely outlined by Hector Ashley Moreland MSW - 06/14/2018 1:05 PM PDTSOCIAL WORK PLAN: TBD INTERVENTION: SW acknowledged order for return to senior living. Pt came from senior living per chart review and may have to go back there upon DC. SW will continue to follow for DC planning. Frandy Estrada ARNP - 06/14/2018 9:11 AM PDTBlood Glucose log reviewed. Patient is stable, with control led blood glucose. Not requiring insulin Diabetes Service will sign off. Medication Reconciliation for diabetes medications has been completed. Please contact us at [phone] should the need arise. Thank you for [...] signed by: Rip Yao M.D. CardioThoracic Surgery [facility] 06/14/2018 9:23 [facility] Pt. Name/Age/: Smitha Fletcher 62 y.o. 1955 Med. Record Number: [id number] Date of admission: 06/07/2018 POD # 3 [...] with the patient is going. Willl have older adult social work specialist start arrangements. Problem List [...] signed by: Hector Decker PA-C Cardiothoracic Surgery [facility] [address], [place] [address] [place] [address] 06/14/2018 8:59 [facility] Dave Hill MD - 06/14/2018 8:07 AM PDT [facility] PATIENT NAME: Smitha Fletcher : 1955: [...] Portions of this chart were created with Goldbely voice recognition software. Occasional wro ng-word or [...] RN; she will be discharging from [facility] to senior living that she came from. Assessment for glucose [...] Labs Lab 06/13/18 04006/12/1831106/11/18 16306/11/18 15206/11/18 14506/11/18 0312 WBC 11.8* 12.1* 16.3* -- -- -- 7.3 HGB 10.3* 10.7* 11.0* 8.2* -- < > 12.6 HCT 30.7* 31.9* 32.0* -- -- -- 37.4 PLT 192 244 228 -- 208 -- 349 < > = values in this interval not displayed. Recent Labs Lab 06/13/18 04006/12/18 0312 06/11/18 2301 06/11/18 19506/11/18 16306/11/18 1636 06/11/18 1525 [...] SALVATORE Elias 06/13/2018 14:53 Diabetes team, [facility] [phone] Amaury Hill MD - 06/13/2018 10:27 AM PDTFormatting of this note might be different from the origi nal. [facility] PATIENT NAME: Smitha Fletcher : 1955: AGE: 62 y.o. ADMISSION DATE: 06/07/2018 Hospital Day: Hospital Day: 7 Code Status: Full Code DATE OF SERVICE: 06/13/2018 Dave Bansal MD/ Kylie Shields [facility] CARDIOLOGY DAILY PROGRESS NOTE PRIMARY [facility] PROBLEM: [...] Portions of this chart were created with Goldbely voice recognition software. Occasional wro ng-word or [...] signed by: Rip Yao M.D. CardioThoracic Surgery [facility] 06/13/2018 9:35 [facility] Pt. Name/Age/: Smitha Fletcher 62 y.o. 1955 Med. Record Number: [id number] Date of admission: 06/07/2018 POD #2 Procedure: [...] in expected, appropriate positions as described. Alisa espinosa by: MD Janak, Parish Sign Date/Time: 06/11/2018 [...] signed by: Hector Decker PA-C Cardiothoracic Surgery [facility] [address], [address] [place] [address] 06/13/2018 8:11 [facility] Kezia Downing RN - 06/12/2018 3:10 [...] discharge planning. ASSESSMENT/CHART REVIEW: Pt resides in [place]. She has Medicare coverage. COPD, is risk for readmission. If pt d oes not need placement she may benefit from home health post acute care. D/C TRANSPORT: TBD BARRIERS TO D/C: Medical stability CONTACTS: Hanna Sethi: [phone] signed by JEFFY Cabrales at 06/12/2018 1 2:24 PM Dave Hill MD - 06/12/2018 11:33 AM PDTFormatting of this note might b e different from the original. [facility] PATIENT NAME: Smitha Fletcher : 1955: [...] 1.0 0.4 - 1.5 % Comment PS8 [id number] O2 Content, Arterial 15.7 15.0 - 23.0 [...] 22:29 Result Value Ref Range Product Code A1839M75 UNIT # [id number] UNIT ABO O UNIT RH NEG CROSSMATCH INTERP Compatible Unit Status XM Blood Product Expiration Date and Time Product Blood Type Barcode 9500 Product Code X6838H99 UNIT # [id number] UNIT ABO O UNIT RH NEG CROSSMATCH INTERP Compatible Unit Status IS Blood Product Expiration Date and Time 492539042848 Product Blood Type Barcode 9500 Blood Gas, [...] 6:53 Result Value Ref Range Product Code H5396D14 UNIT # [id number] UNIT ABO O UNIT RH NEG CROSSMATCH INTERP Compatible Unit Status XM Blood Product Expiration Date and Time 683316875320 Product Blood Type Barcode 9500 POC Glucose [...] Duvall MD - 06/12/2018 10:12 AM PDT [facility] Hemanth Webster [...] Date of Service: 06/10/2018 PCP: Yolanda Lee HYDRAULIC PLUMBER HELPER Hospital Day: 1 Hospital Course: This is a 62 y.o.femalewith hx substance abuse, MA and stent [place] [address] Brittnee Sandoval cardiology. She was brought from senior living, complaining of severe 8-9/10 burning chest pain [...] - Single Lumen 06/10/18 1446 Right Forearm ueih-ymi-nsjuxf catheter sys tem 22 gauge;1 in length [...] - 99 mg/dL Final Comment: Performed by [facility] [address] [place] [address] All pertinent labs and imaging have been [...] this chart may have been created with Goldbely voice recognition software. Occasi onal wrong-word or sound-alike substitutions may have occurred due to the inherent meyers itations of voice recognition software. Please read the chart carefully and recognize, using context, where these substitutions have occurred Brenna Henderson, Ks dical Student - 06/10/2018 11:05 AM PDTFormatting [...] TTE 06/08/18 showed LVEF of 45% with idiitlkj-zi-zajbtd hypokinesis of lateral and inferio r castillo. [...] female with a pmhx of polysubstance abuse, CAD/MA s/p stent (2011), ischemic EFrEF (LVEF of 45%), HTN, bipolar disorder, nicotine dependence and incarce ration that presented from senior living with severe left sided chest pain that [...] Please refer to attending/resident/physician assistant professor of chemistry/nurse practit ioner note regarding further patient care. Geno Carver RRT - 06/10/2018 9:57 AM PDTAssessed for Pulmonary Rehab. Pt does not qualif y. Referred to for Home Health. 9 :58 AM PDTMyersJeffy MD - 06/10/2018 9:36 AM PDTFormatting of [...] TTE on 018 revealed LVEF = 45%, hyqiatgi-kb-bshkny hypokinesis of lateral and inferior castillo, julian [...] Complaint: Chest pain Hospital Course: 62F PMH CAD/MA s/p stent (2011), ischemic HFrEF (LVEF = 45%), HTN, polysubstance abuse (met hamphetamine & marijuana), HCV, bipolar disorder, nicotine dependence and incarceration pres ented from senior living w/ severe, burning, substernal chest pain w/ radiation to left shoulder and associated nausea and vomiting. Workup in ED revealed troponin elevation (peak 0.311 this admission) and patient was admitt ed for further workup and management w/ cardiology. Labs in ED also revealed UDS positive fo r amphetamine, methamphetamine, benzodiazepines and opiates. TTE revealed LVEF = 45%, fzkzvehi-zy-xvbtlv hypokinesis of lateral and inferior castillo, mitr [...] Date of Service: 06/09/2018 PCP: SALVATORE Ventura [facility] Day: 0 Hospital Course: This is a 62 y.o.femalewith hx substance abuse, MA and stent [place] [address] Sandoval cardiology. She was brought from senior living, complaining of severe 8-10 burning chest pain [...] hypokinesis present but the patient has has MA's in the past . Mild LVH. Stress [...] Single Lumen 06/09/18 0836 Left Distal Forearm tuwg-orc-kojkda cathet er system 20 gauge;1 1/4 in [...] this chart may have been created with Goldbely voice recognition software. Occasi onal wrong-word or [...] TTE on 018 revealed LVEF = 45%, evpilxnz-ua-fudkji hypokinesis of lateral and inferior castillo, julian [...] Complaint: Chest pain Hospital Course: 62F PMH CAD/MA s/p stent (2011), ischemic HFrEF (LVEF = 45%), HTN, polysubstance abuse (met hamphetamine & marijuana), HCV, bipolar disorder, nicotine dependence and incarceration pres ented from senior living w/ severe, burning, substernal chest pain w/ radiation to left shoulder and associated nausea and vomiting. Workup in ED revealed troponin elevation (peak 0.311 this admission) and patient was admitt ed for further workup and management w/ cardiology. Labs in ED also revealed UDS positive fo r amphetamine, methamphetamine, benzodiazepines and opiates. TTE revealed LVEF = 45%, cluvgvwi-pb-foaqnm hypokinesis of lateral and inferior castillo, mitr [...] Date of Service: 06/08/2018 PCP: SALVATORE Ventura [facility] Day: 0 Hospital Course: This is a 62 y.o. female with hx substance abuse, MA and stent [place] [address] Riya banuelos cardiology. She was brought from senior living, complaining on sever -06/15 burning chest pain [...] hypokinesis present but the patient has has MA's in the past . Mild LVH. Stress [...] 06/07/18 1545 Right Anterior (palmar);Medial Forearm ove p-qyb-nydzvz catheter system 20 gauge;other (see comments) 1 [...] this chart may have been created with Goldbely voice recognition software. Occasi onal wrong-word or [...] and chest pain. COMPARISON: CT ANGIOGRAM CH COREY W CONTRAST dated 10/27/2016; XR CHEST AP [...] Portions of this chart were created with Goldbely voice recognition software. Occasional wro ng-word or "sound-alike" substitutions may have occurred due to the inherent limitations of voice recognition software. Please read the chart carefully and recognize, using context, w here those substitutions have occurred.Electronically signed by Shad Schuler MD at 06/08 10:27 AM Rhiannon Irene RN - 06/07/2018 3:09 PM [id number] arrived to floor. Somu nlent. Asking very [...] | | | | | | [place] [address] | | | | | | [phone] | | | | | | | [...] | | | | infarction) ([facility]) | | + +------+--------+ + [...] | | | | infarction) ([facility]) | | + + +--------+ [...] PROVIDENCE | | | | Performed by [facility] [address] | [address] | | | | [address] [place] | | HEART | | | | [address] | | MEDICAL | | | | [...] SACRED | [address] | [place] [address] | | | [facility] | | | | | [...] | | MEDICAL | | | | [facility] [address], | | CENTER | | | | [place] [address] | | LABORATORY | | | | [...] + | [facility] | [address] | [place] [address] | | | [facility] | | | | | [...] Upton Paula Sign Date/Time: 06/15/2018 6:31 AM | | + + + + + | Procedure Note | + + | Presley Dumont In - 06/15/2018 6:35 AM PDT | [...] + + | Performing | Address | City/State/[facility] [place] | Phone Number | | Organization | [...] + + + + | Product | [id number] | | REFERENCE | | | Code | | | [facility] | | | | | | [facility] | | | | | | [facility] | | | | | | [facility] | | | | | | CENTER | | + + + + + + | UNIT # | [id number] | | REFERENCE | | | | | | [facility] | | | | | | [facility] | | | | | | [facility] | | | | | | [facility] | | | | | | CENTER | | + + + + + + | UNIT ABO | O | | REFERENCE | | | | | | [facility] | | | | | | [facility] | | | | | | [facility] | | | | | | [facility]LO[facility] | | | | | | CENTER | | + + + + + + | UNIT RH | NEG | | REFERENCE | | | | | | [facility] | | | | | | [facility] | | | | | | [facility] | | | | | | BLOOD | | | | | | CENTER | | + + + + + + | CROSSMATCH | Compatible | | REFERENCE | | | INTERP | | | [facility] | | | | | | [facility] | | | | | | [facility] | | | | | | BLOOD | | | | | | CENTER | | + + + + + + | Unit Status | RE | | REFERENCE | | | | | | [facility] | | | | | | [facility] | | | | | | [facility] | | | | | | [facility] | | | | | | CENTER | | + + + + + + | Blood | [id number] | | REFERENCE | | | Product | | | [facility] | | | Expiration | | | [facility] | | | Date and | | | [facility] | | | Time | | | BLOOD | | | | | | CENTER | | + + + + + + | Product | [id number] | | REFERENCE | | | Blood Type | | | [facility] | | | Barcode | | | [...] + + + | Specimen Expiration Date: [id number] | REFERENCE LAB | | | [facility] | | | [facility] | | | [facility] | + + + + + + + + | Performing | Address | City/State/Zipcode | Phone Number | | Organization | | | | + + + + + | REFERENCE LAB | [address] | [place] [address] | [phone] | | [facility] | | | | | [facility] [...] | | | POC | Performed by [facility] [address] | | [address]CRED | | | | [address], [place] | | HEART | | | | [address] | | MEDICAL | | | | [...] + | [facility] | [address] | [place] [address] | | | HEART [facility] | | | | | LABORATORY [place] | | | | + + + + + Red Blood Cells (06/14/2018 12:12 PM PDT) + + + + + + | Component | Value | Ref Range | Performed | Pathologist | | | | | At | Signature | + + + + + + | Product | [id number] | | REFERENCE | | | Code | | | [facility] | | | | | | [facility] | | | | | | [facility] | | | | | | [facility] | | | | | | CENTER | | + + + + + + | UNIT # | [id number] | | REFERENCE | | | | | | [facility] | | | | | | [facility] | | | | | | [facility] | | | | | | BLOOD | | | | | | CENTER | | + + + + + + | UNIT ABO | O | | REFERENCE | | | | | | [facility] | | | | | | [facility] | | | | | | [facility] | | | | | | BLOOD | | | | | | CENTER | | + + + + + + | UNIT RH | NEG | | REFERENCE | | | | | | [facility] | | | | | | [facility] | | | | | | [facility] | | | | | | BLOOD | | | | | | CENTER | | + + + + + + | CROSSMATCH | Compatible | | REFERENCE | | | INTERP | | | [facility] | | | | | | [facility] | | | | | | [facility] | | | | | | BLOOD | | | | | | CENTER | | + + + + + + | Unit Status | IS | | REFERENCE | | | | | | [facility] | | | | | | [facility] | | | | | | [facility] | | | | | | [facility] | | | | | | CENTER | | + + + + + + | Blood | [id number] | | REFERENCE | | | Product | | | [facility] | | | Expiration | | | [facility] | | | Date and | | | [facility] | | | Time | | | BLOOD | | | | | | CENTER | | + + + + + + | Product | [id number] | | REFERENCE | | | Blood Type | | | [facility] | | | Barcode | | | [facility] | | | | | | [facility] | | | | | | BLO[facility] | | | | | | CENTER | | + + + + + + | Product | [id number] | | REFERENCE | | | Code | | | [facility] | | | | | | [facility] | | | | | | [facility] | | | | | | BLOOD | | | | | | CENTER | | + + + + + + | UNIT # | [id number] | | REFERENCE | | | | | | [facility] | | | | | | [facility] | | | | | | [facility] | | | | | | BLOOD | | | | | | CENTER | | + + + + + + | UNIT ABO | O | | REFERENCE | | | | | | [facility] | | | | | | [facility] | | | | | | [facility] | | | | | | BLOOD | | | | | | CENTER | | + + + + + + | UNIT RH | NEG | | REFERENCE | | | | | | [facility] | | | | | | [facility] | | | | | | [facility] | | | | | | BLOOD | | | | | | CENTER | | + + + + + + | CROSSMATCH | Compatible | | REFERENCE | | | INTERP | | | [facility] | | | | | | [facility] | | | | | | [facility] | | | | | | BLOOD | | | | | | CENTER | | + + + + + + | Unit Status | IS | | REFERENCE | | | | | | [facility] | | | | | | [facility] | | | | | | [facility] | | | | | | [facility]LO[facility] | | | | | | CENTER | | + + + + + + | Blood | [id number] | | REFERENCE | | | Product | | | [facility] | | | Expiration | | | [facility] | | | Date and | | | [facility] | | | Time | | | BLOOD | | | | | | CENTER | | + + + + + + | Product | [id number] | | REFERENCE | | | Blood Type | | | [facility] | | | Barcode | | | [...] + + + | Specimen Expiration Date: [id number] | REFERENCE LAB | | | [facility] | | | [facility] | | | [facility] | + + + + + + + + | Performing | Address | City/State/Zipcode | Phone Number | | Organization | | | | + + + + + | REFERENCE LAB | [address] | [place] [address] | [phone] | | [facility] | | | | | [facility] [...] | | | POC | Performed by [facility] [address] | | [address] [...] [address] | [place] | | | HEART [facility] | | | | | [...] | | | POC | Performed by [facility] [address] | | [address] | | | | [address] [place] | | HEART | | | | [address] | | MEDICAL | | | | [...] [facility] [address] | [place] [address] | | | [facility] | | | | | [...] | | | POC | Performed by [facility] [address] | | [address] [...] [address] | [place] | | | HEART [facility] | | | | | [...] | | | POC | Performed by [facility] [address] | | [address]CR[address] | | | | [address] [place] | | HEART | | | | [address] | | MEDICAL | | | | [...] [address] | [place] [address] | | | [facility] | | | | | [...] | | | POC | Performed by [facility] [address] | | SACRED [...] [address] | [place] | | | HEART MEDICAL CENTER | [...] | | | POC | Performed by [facility] [address] | | SACRED | | | | [address] [place] | | HEART | | | | [address] | | MEDICAL | | | | [...] + | [facility] | [address] | [place] [address] | | | [facility] | | | | | [...] PROVIDENCE | | | | Performed by [facility] [address] | | SACRED [...] SACRED | [address] | [place] [address] | | | HEART [facility] | | | | | [...] | | MEDICAL | | | | [facility] [address], | | CENTER | | | | [place] [address] | | LABORATORY | | | | [...] [address] [facility] [address] | [place] [address] | | | [facility] | | | | | [...] | | | POC | Performed by [facility] [address] | | [address] | | | | [address], [place] | | HEART | | | | [address] | | MEDICAL | | | | [...] + | YARELISDEMIK[facility] BRENDAN | [address] | [place] [address] | | | [facility] | | | | | [...] | | | POC | Performed by [facility] [address] | | SACRED | | | | [address] [place] | | HEART | | | | [address] | | MEDICAL | | | | [...] [address] [facility] [address] | [place] [address] | | | [facility] | | | | | [...] | | | POC | Performed by [facility] [address] | | SACR[address] | | | | [address], [place] | | HEART | | | | [address] | | MEDICAL | | | | [...] + + | [facility] | [address] | [place] [address] | | | [facility] | | | | | [...] | | | POC | Performed by [facility] [address] | | [address]CR[address] | | | | [address] [place] | | HEART | | | | [address] | | MEDICAL | | | | [...] + | PROVIDEDEMIE SACRED | [address] [facility] [address] | [place] [address] | | | [facility] | | | | | [...] | | | POC | Performed by [facility] [facility] [address] | | SACRED | | | | [address], [place] | | HEART | | | | [address] | | MEDICAL | | | | [...] + + | YARELISCARLOS CARDONA | [address] | [place] [address] | | | [facility] | | | | | [...] | PROVID[facility] | | | POC | [facility] [address], | | SACRED | | | | [place] [address] | | HEART | | | |Performed by [facility] [address], [place] [address] | | MEDICAL | | | | [...] [facility] [address] | [place] [address] | | | [facility] | | | | | [...] | | | POC | Performed by [facility] [address] | | SACRED [...] [address] | [place] [address] | | | HEART [facility] | | | | | [...] | PROVIDENCE | | | POC | [facility] [address], | | SACRED | | | | [place] [address] | | HEART | | | |Performed by [facility] [address], [place] [address] | | MEDICAL | | | | [...] + | AMILCAR CARDONA | [address] | [place] [address] | | | [facility] | | | | | [...] | PROVIDENCE | | | POC | [facility] [address], | | SACRED | | | | [place] [address] | | HEART | | | |Performed by [facility] [address], [place] [address] | | MEDICAL | | | | [...] + | AMILCAR CARDONA | [address] | [place] [address] | | | [facility] | | | | | [...] | TRACEMASTER | | Duration:184 msP Horizontal [place]:5 degP Front [place]:55 degQ Onset:508 | | | msQRSD Interval:104 msQT Interval:452 msQTcB:452 msQTcF:452 msQRS | | | Horizontal [place]:129 degQRS [place]:-53 degI-40 Horizontal [place]:77 degI-40 | | | Front [place]:-44 degT-40 Horizontal [place]:204 degT-40 Front [place]:-83 | | | degT Horizontal [place]:95 degT Wave [place]:39 degS-T Horizontal [place]:79 | | | degS-T Front [place]:49 degSeverity:- ABNORMAL ECG -INTERP:SINUS | | | RHYTHMINTERP:CONSIDER RIGHT VENTRICULAR HYPERTROPHYINTERP:PROBABLE | | | INFERIOR INFARCT, AGE INDETERMINATEINTERP:BORDERLINE ST ELEVATION, | | | ANTERIOR LEADSElectronically signed by: ELIZABETH CAMPBELL 06-12-2018 | | | 07:37:14 | | |QRS Horizontal [place]:129 deg | | |QRS [place]:-53 deg | | |I-40 Horizontal [place]:77 deg | | |I-40 Front [place]:-44 deg | | |T-40 Horizontal [place]:204 deg | | |T-40 Front [place]:-83 deg | | |T Horizontal [place]:95 deg | | |T Wave [place]:39 deg | | |S-T Horizontal [place]:79 deg | | |S-T Front [place]:49 deg | | |Severity:- ABNORMAL ECG - [...] + | WAMT TRACEMASTER | [address] [facility] [address] | [place] [address] | [phone] | + + + + + CBC [...] PROVIDENCE | | | | Performed by [facility] [address] | | SACRED | | | | [address], [place] | | HEART | | | | [address] | | MEDICAL | | | | [...] [address] | [place] [address] | | | [facility] | [...] | | MEDICAL | | | | [facility] [address] | | WAVERLY | | | | [place] [address] | | LABORATORY | | | | [...] [address] | [place] [address] | | | [facility] | | | | | [...] | | | POC | Performed by [facility] [address] | | SACRFAUSTO | | | | [address], [place] | | HEART | | | | [address] | | MEDICAL | | | | [...] + | AMILCAR CARDONA | [address] | [place] [address] | | | [facility] | | | | | [...] | PROVIDENCE | | | POC | [facility] [address], | | SACRED | | | | [place] [address] | | HEART | | | |Performed by [facility] [address], [place] [address] | | MEDICAL | | | | [...] [address] | [place] [address] | | | [facility] | | | | | [...] | | | POC | Performed by [facility] [address] | | BRENDAN | | | | [place], [place] | | HEART | | | | [address] | | MEDICAL | | | | [...] + + | AMILCAR SACRFAUSTO | [address] | [place] [address] | | | [facility] | [...] | | | POC | Performed by [facility] [address] | | SACRED | | | | [address] [place], [place] | | HEART | | | | [address] | | MEDICAL | | | | [...] + + | [facility] BRENDAN | [address] | [place] [address] | | | [facility] | | | | | [...] PROVIDENCE | | | | Performed by [facility] [address] | mmol/L | SACRED | | | | [place] | | HEART | | | | [address] | | MEDICAL | | | | [...] SACRFAUSTO | [address] | [place] [address] | | | [facility] | [...] [facility]ENCE | | | | Performed by [facility] [address] | | SACRED | | | | [address] [place], [place] | | HEART | | | | [address] | | MEDICAL | | | | [...] + + | AMILCAR CARDONA | [address] | [place] [address] | | | [facility] | | | | | [...] Performed | 92.0 - 99.0 % | [facility] | | | ARTERIAL | by [facility] [address], | | SACRED | | | | [place] | | HEART | | | |Performed by [facility] [address] [facility] [address], [place] | | MEDICAL | | | [...] [address] | [place] [address] | | | HEART [facility] | | | | | [...] | | | POC | Performed by [facility] [address] | | SACRED | | | | [address] [place] | | HEART | | | | [address] | | MEDICAL | | | | [...] + + | AMILCAR CARDONA | [address] | [place] [address] | | | [facility] | | | | | [...] | | | POC | Performed by [facility] [address] | | SACRED | | | | [address], [place] | | HEART | | | | [address] | | MEDICAL | | | | [...] [address] | [place] [address] | | | [facility] | [...] | PROVIDENCE | | | | by [facility] [address], | mmol/L | SACRED | | | | [place] | | HEART | | | |Performed by [facility] [address], [place] | | MEDICAL | | | [...] + | YARELISDEMIKarly BRENDAN | [address] | [place] [address] | | | [facility] | | | | | [...] | | | POC | Performed by [facility] [address] | | SACRED | | | | [address] [place] | | HEART | | | | [address] | | MEDICAL | | | | [...] + | AMILCAR CARDONA | [address] | [place] [address] | | | [facility] | | | | | [...] | TRACEMASTER | | Duration:180 msP Horizontal [place]:-10 degP Front [place]:68 degQ Onset:512 | | | msQRSD Interval:110 msQT Interval:444 msQTcB:486 msQTcF:472 msQRS | | | Horizontal [place]:112 degQRS [place]:-63 degI-40 Horizontal [place]:100 | | | degI-40 Front [place]:-58 degT-40 Horizontal [place]: degT-40 Front [place]:160 | | | degT Horizontal [place]:104 degT Wave [place]:-11 degS-T Horizontal | | | [place]:104 degS-T Front [place]:32 degSeverity:- ABNORMAL ECG -INTERP:SINUS | | | RHYTHMINTERP:PROBABLE LEFT ATRIAL ABNORMALITYINTERP:NONSPECIFIC IVCD | | | WITH LADINTERP:INFERIOR INFARCT, AGE INDETERMINATEINTERP:LATERAL | | | INFARCT, OLDElectronically signed by: ELIZABETH CAMPBELL 06-12-2018 | | | 11:18:02 | | |QRS Horizontal [place]:112 deg | | |QRS [place]:-63 deg | | |I-40 Horizontal [place]:100 deg | | |I-40 Front [place]:-58 deg | | |T-40 Horizontal [place]: deg | | |T-40 Front [place]:160 deg | | |T Horizontal [place]:104 deg | | |T Wave [place]:-11 deg | | |S-T Horizontal [place]:104 deg | | |S-T Front [place]:32 deg | | |Severity:- ABNORMAL ECG - [...] + | WAMT TRACEMASTER | [address] [facility] [address] | [place] [address] | [phone] | + + + + + PTT [...] | | | | | seconds.Performed by [facility] | | | | | | [address], | | | | | | [place] [address] | | | | + + + + + + + + | Specimen | + + | Blood specimen | | (specimen) | + + + + + + + | Performing | Address | City/State/Zipcode | Phone Number | | Organization | | | | + + + + + | [facility] | [address] | [place] [address] | | | [facility] | [...] | | | | to 3.5Performed by [facility] | | LABORATORY | | | | [address] [place], | | [place] | | | | [place] [address] | | | | + + + + + + + + | Specimen | + + | Blood specimen | | (specimen) | + + + + + + + | Performing | Address | City/State/Zipcode | Phone Number | | Organization | | | | + + + + + | [facility] | [address] | [place] [address] | | | [facility] | | | | | [...] | | MEDICAL | | | | [facility] [address] [facility] [address], | | CENTER | | | | [place] [address] | | LABORATORY | | | | [...] + + | PROVIDEDEMIE [facility] | [address] | [place] [address] | | | [facility] | | | | | [...] PROVIDENCE | | | | Performed by [facility] [address] | | SACRED | | | | [address] [place] | | HEART | | | | [address] | | MEDICAL | | | | [...] + | AMILCAR CARDONA | [address] | [place] [address] | | | [facility] | | | | | [...] [facility] | | | Arterial | by [facility] [address], | mmol/L | SACRED | | | | [place] [address] | | HEART | | | |Performed by [facility] [address], [place] [address] | | MEDICAL | | | | [...] + + | AMILCAR CARDONA | [address] | [place] [address] | | | [facility] | | | | | [...] | 5.09 | 4.75 - 5.30 | YIN E | | | Ionized | | [...] E | | | Normalized | by [place] [address], | mg/dL | SACRED | | | | [place] [address] | | HEART | | | |Performed by [place] [address] [address] [facility] [address], [place] [address] | | MEDICAL | | | | [...] [facility] [address] | [place] [address] | | | [facility] | | | | | [...] AMILCAR | | | | Performed by [facility] [address] | | SACRED | | | | [address], [place] | | HEART | | | | [address] | | MEDICAL | | | | [...] [address] | [place] [address] | | | [facility] | [...] +--------- ----+ + | Comment | [id number] | | PROVIDEN CE | | | [...] CE | | | ARTERIAL | by [facility] [address] [facility] [address], | | SACRED | | | | [place] [address] | | HEART | | | |Performed by [facility] [address], [place] [address] | | MEDICAL | | | | [...] + | AMILCAR CARDONA | [address] | [place] [address] | | | [facility] | | | | | [...] | Procedure Note | + + | iTm, Presley Results In - 06/11/2018 5:27 PM [...] | | | Arterial | Performed by [facility] [address] | mmol/L | SACRED | | | | [address] [place] | | HEART | | | | [address] | | MEDICAL | | | | [...] [facility] [address] | [place] [address] | | | [facility] | | | | | [...] 96.7 | 92.0 - 99.9 % | YARELISN CE | | | | [...] PROVIDEN CE | | | | by [facility] [address], | mmol/L | SACRED | | | | [place] [address] | | HEART | | | |Performed by [facility] [address], [place] [address] | | MEDICAL | | | | [...] [facility] [address] | [place] [address] | | | [facility] | | | | | [...] (H)Comment: This | 0.00 - 0.49 | AMILCAR | | | QUANTITATIV | quantitative D [...] | | | | | seconds.Performed by [facility] | | | | | | [address], | | | | | | [place] [address] | | | | + + + + + + + + | Specimen | + + | Blood specimen | | (specimen) | + + + + + + + | Performing | Address | City/State/Zipcode | Phone Number | | Organization | | | | + + + + + | [facility] | [address] | [place] [address] | | | [facility] | | | | | [...] | | | Arterial | Performed by [facility] [address] | mmol/L | SACRED | | | | [address], [place] | | HEART | | | | [address] | | MEDICAL | | | | [...] + | AMILCAR CARDONA | [address] | [place] [address] | | | [facility] | | | | | [...] 43 | 32 - 43 mmHg | YARELISN [...] PROVIDEN CE | | | | by [facility] [address] [facility] [address], | mmol/L | SACRED | | | | [place] [address] | | HEART | | | |Performed by [facility] [address], [place] [address] | | MEDICAL | | | | [...] [facility] [address] | [place] [address] | | | [facility] | | | | | [...] [facility]ENCE | | | Arterial | by [facility] [address], | mmol/L | SACRED | | | | [place] [address] | | HEART | | | |Performed by [facility] [address], [place] [address] | | MEDICAL | | | | [...] + + | AMILCAR [facility] | [address] | [place] [address] | | | [facility] | | | | | [...] PROVIDENCE | | | | Performed by [facility] [address] | | SACRED | | | | [address] [place] | | HEART | | | | [address] | | MEDICAL | | | | [...] + | AMILCAR CARDONA | [address] | [place] [address] | | | [facility] | | | | | [...] [facility]ENCE | | | Arterial | by [facility] [address], | mmol/L | SACRED | | | | [place] [address] | | HEART | | | |Performed by [facility] [address], [place] [address] | | MEDICAL | | | | [...] + | YARELISCARLOS MATAMOROSFAUSTO | [address] | [place] [address] | | | [facility] | | | | | [...] PROVIDENCE | | | | Performed by [facility] [address] | | SACRED | | | | [address] [place] | | HEART | | | | [address] | | MEDICAL | | | | [...] + + | AMILCAR CARDONA | [address] 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 Visible portions of ascending aorta | | | and arch normal. Grade 2atherosclerotic disease of descending aorta.9. | | | Pulmonary artery [id number]. Normal pericardium. No pericardial fluid. | | [...] Number [id number] | | ZIYAD Patient Number [id number] Date of Study 06/11/2018 Visit | | Number [id number] Interpreting Sharad | | MD Jose Manuel Number Physician Date of 1955 | | Referring Physician ELEANOR MARTIN Age 62 year(s) | | Party Plan Salesperson Sanjeev Bradshaw, | | MD Sharad Richard MD Gender | | Female Nurse 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 Bradshaw.Diagnostic exam | | performed by Dr. Brasdhaw (Pre-CPB), Dr. Richard (Post-CPB).Exam interpreted by | [...] function. Trace TR.7. Pulmonic valve normal Trace IL.8. Visible portions | | of ascending aorta and arch normal. 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 Pulmonary artery ywrnim29. Normal pericardium. No pericardial fluid. No pleural [...] [facility] | | | Arterial | by [facility] [address], | mmol/L | SACRED | | | | [place] [address] | | HEART | | | |Performed by [facility] [address], [place] [address] | | MEDICAL | | | | [...] + + | YARELISDEMIKarly CARDONA | [address] | [place] [address] | | | [facility] | | | | | [...] | | | Normalized | Performed by [facility] [address] | mg/dL | SACRED | | | | [address] [place] | | HEART | | | | [address] | | MEDICAL | | | | [...] + + | AMILCAR CARDONA | [address] | [place] [address] | | | [facility] | | | | | [...] PROVIDENCE | | | Arterial | by [facility] [address], | mmol/L | SACRED | | | | [place] [address] | | HEART | | | |Performed by [facility] [address], [place] [address] | | MEDICAL | | | | [...] + + | [facility] | [address] | [place] [address] | | | [facility] | [...] [facility] | | | | Performed by [facility] [address] | mmol/L | SACRED | | | | [address] [place] | | HEART | | | | [address] | | MEDICAL | | | | [...] [address] | [place] [address] | | | [facility] | | | | | [...] | | | Screen | | | [facility] [place] | | | | | | [facility] | | | | | | [facility] | | | | | | B[facility] | | | | | | CENTER | | + + + + + + | ABO | O | | REFERENCE | | | | | | LAB [facility] | | | | | | [facility] | | | | | | [facility] | | | | | | [facility]OD | | | | | | CENTER | | + + + + + + | Rh Type | Negative | | REFERENCE | | | | | | LAB [facility] | | | | | | [facility] [...] + + + | Specimen Expiration Date: [id number] | REFERENCE LAB | | | [facility] | | | [facility] | | | [facility] | + + + + + + + + | Performing | Address | City/State/Zipcode | Phone Number | | Organization | | | | + + + + + | REFERENCE LAB | [address] | [place] [address] | [phone] | | [facility] | | | | | [facility] [...] | | | POC | Performed by [facility] [address] | | SACRED | | | | [address], [place], [place] | | HEART | | | | [address] | | MEDICAL | | | | [...] SACRED | [address] | [place] [address] | | | [facility] | [...] CENTER | | | | 3.5Performed by [facility] [address] | | LABORATORY | | | | [address], [place] | | [place] | | | | [address] | | | | + + + + + + + + | Specimen | + + | Blood specimen | | (specimen) | + + + + + + + | Performing | Address | City/State/Zipcode | Phone Number | | Organization | | | | + + + + + | AMILCAR CARDONA | [address] | [place] [address] | | | [facility] | | | | | [...] PROVIDENCE | | | | Performed by [facility] [address] | | SACRED | | | | [address] [place] | | HEART | | | | [address] | | MEDICAL | | | | [...] SACRED | [address] | [place] [address] | | | HEART [facility] | | | | | [...] | | MEDICAL | | | | [facility] [address], | | CENTER | | | | [place] [address] | | LABORATORY | | | | [...] + | AMILCAR CARDONA | [address] | [place] [address] | | | [facility] | | | | | [...] | | | | | seconds.Performed by [facility] | | | | | | [address], | | | | | | [place] [address] | | | | + + + + + + + + | Specimen | + + | Blood specimen | | (specimen) | + + + + + + + | Performing | Address | City/State/Zipcode | Phone Number | | Organization | | | | + + + + + | [facility] | [address] | [place] [address] | | | [facility] | | | | | [...] PROVIDENCE | | | Source | by [facility] [address], | | SACRED | | | | [place] [address] | | HEART | | | |Performed by [facility] [address], [place] [address] | | MEDICAL | | | | [...] + + | [facility] | [address] | [place] [address] | | | [facility] | | | | | [...] - 1.030 | [facility] | | | [place] | | | SACRED | | | [...] | | | SOURCE | Performed by [facility] [address] | | SACRED | | | | [address] [place] | | HEART | | | | [address] | | MEDICAL | | | | [...] + + | YARELISCARLOS CARDONA | [address] | [place] [address] | | | [facility] | | | | | [...] | | | POC | Performed by [facility] [address] | | SACRED | | | | [address], [place] | | HEART | | | | [address] | | MEDICAL | | | | [...] [address] | [place] [address] | | | [facility]ENTER | [...] | | | | | seconds.Performed by [facility] | | | | | | [address], | | | | | | [place] [address] | | | | + + + + + + + + | Specimen | + + | Blood specimen | | (specimen) | + + + + + + + | Performing | Address | City/State/Zipcode | Phone Number | | Organization | | | | + + + + + | YINE [facility] | [address] | [place] [address] | | | [facility] | | | | | [...] | | MEDICAL | | | | [facility] [address], | | CENTER | | | | [place] [address] | | LABORATORY | | | | [...] + + | [facility] | [address] | [place] [address] | | | [facility] | | | | | [...] CENTER | | | | 3.5Performed by [facility] [address] | | LABORATORY | | | | [address], [place], [place] | | [place] | | | | [address] | | | | + + + + + + + + | Specimen | + + | Blood specimen | | (specimen) | + + + + + + + | Performing | Address | City/State/Zipcode | Phone Number | | Organization | | | | + + + + + | [facility] | [address] | [place] [address] | | | [facility] | | | | | [...] | | | POC | Performed by [facility] [address] | | SACRED | | | | [address] [place] | | HEART | | | | [id number] | | MEDICAL | | | | [...] + + | [facility] | [address] | [place] [address] | | | [facility] | | | | | [...] | | | | | | The [facility] recommends | | | | | | that a positive HCV | | | | | | antibody result be | | | | | | followed up with a HCV | | | | | | Nucleic Acid | | | | | | Amplification test | | | | | | ([id number]).Performed At: | | | | | | [facility] | | | | | | [facility] [address] | | | | | | [place], [place] | | | | | | [id number] Daniel | | | | | | L Ph:[id number] | | | | + + + + + + + + | Specimen | + + | Blood specimen | | (specimen) | + + + + + + + | Performing | Address | City/State/Zipcode | Phone Number | | Organization | | | | + + + + + | [facility] | [address] | [place] [address] | | | [facility] | | | | | [...] | | | | | seconds.Performed by [facility] | | | | | | [address], | | | | | | [place] [address] | | | | + + + + + + + + | Specimen | + + | Blood specimen | | (specimen) | + + + + + + + | Performing | Address | City/State/Zipcode | Phone Number | | Organization | | | | + + + + + | [facility] | [address] | [place] [address] | | | [facility] [facility] | | | | | LABORATORY [facility] | | | | + + + + + ECG 12 lead (06/10/2018 12:10 PM PDT) + + | Specimen | + + | | + + + + + | Narrative | Performed At | + + + | HEART RATE:71 | [facility] | | bpmRR Interval:845 msAtrial Rate:71 msP-R Interval:148 msP | TRACEMASTER | | Duration:152 msP Horizontal [place]:32 degP Front [place]:62 degQ Onset:512 | | | msQRSD Interval:110 msQT Interval:416 msQTcB:453 msQTcF:440 msQRS | | | Horizontal [place]:199 degQRS [place]:-83 degI-40 Horizontal [place]:77 degI-40 | | | Front [place]:-74 degT-40 Horizontal [place]:242 degT-40 Front [place]:216 | | | degT Horizontal [place]:84 degT Wave [place]:69 degS-T Horizontal [place]:97 | | | degS-T Front [place]:107 degSeverity:- ABNORMAL ECG -INTERP:SINUS | | | RHYTHMINTERP:NONSPECIFIC IVCD WITH LADINTERP:INFERIOR INFARCT, | | | OLDElectronically signed by: ELIZABETH CAMPBELL 06-12-2018 11:24:19 | | |QTcB:453 ms | | |QTcF:440 ms | | |QRS Horizontal [place]:199 deg | | |QRS [place]:-83 deg | | |I-40 Horizontal [place]:77 deg | | |I-40 Front [place]:-74 deg | | |T-40 Horizontal [place]:242 deg | | |T-40 Front [place]:216 deg | | |T Horizontal [place]:84 deg | | |T Wave [place]:69 deg | | |S-T Horizontal [place]:97 deg | | |S-T Front [place]:107 deg | | |Severity:- ABNORMAL ECG - | | |INTERP:SINUS RHYTHM | | |INTERP:NONSPECIFIC IVCD WITH LAD | | |INTERP:INFERIOR INFARCT, OLD | | |Electronically signed by: ELIZABETH CAMPBELL 06-12-2018 11:24:19 | | + + + + + + + + | Performing | Address | City/State/Zipcode | Phone Number | | Organization | | | | + + + + + | [facility] | [address] | [place] [address] | [phone] | + + + + + Pulmonary [...] | | | | | seconds.Performed by [facility] | | | | | | [address], | | | | | | [place] [address] | | | | + + + + + + + + | Specimen | + + | Blood specimen | | (specimen) | + + + + + + + | Performing | Address | City/State/Zipcode | Phone Number | | Organization | | | | + + + + + | [facility] | [address] | [place] [address] | | | [facility] | | | | | [...] | | | | | | The [facility] recommends | | | | | | that a positive HCV | | | | | | antibody result be | | | | | | followed up with a HCV | | | | | | Nucleic Acid | | | | | | Amplification test | | | | | | ([id number]).Performed At: | | | | | | [facility] [id number] | | | | | | [address] | | | | | | [place], [place] | | | | | | [id number] Daniel | | | | | | L MD Ph:[phone] | | | | + + + [...] + | [facility] | [address] | [place] [address] | | | [facility] | | | | | [...] | | | | | formula.Performed by [facility] | | | | | | [address], | | | | | | [place] [address] | | | | + + + + + + + + | Specimen | + + | Blood specimen | | (specimen) | + + + + + + + | Performing | Address | City/State/Zipcode | Phone Number | | Organization | | | | + + + + + | [facility] | [address] | [place] [address] | | | [facility] | | | | | [...] | | | | | | LAB [place] | | | | | | [facility] | | | | | | [facility] | | | | | | [facility] | | | | | | CENTER | | + + + + + + | Rh Type | Negative | | REFERENCE | | | | | | LAB [place] | | | | | | [place] | | | | | | [facility] | | | | | | [facility] | | | | | | CENTER | | + + + + + + + + | Specimen | + + | | + + + + + | Narrative | Performed At | + + + | Specimen Expiration Date: [id number] | REFERENCE LAB | | | [place] | | | [facility] | | | [facility] | + + + + + + + + | Performing | Address | City/State/Zipcode | Phone Number | | Organization | | | | + + + + + | RE[facility] | [address] | [place] [address] | [phone] | | [place] | | | | | [facility] [...] | | Screen | | | [facility] [place] | | | | | | [facility] | | | | | | [facility] | | | | | | BLOOD | | | | | | CENTER | | + + + + + + + + | Specimen | + + | | + + + + + | Narrative | Performed At | + + + | Specimen Expiration Date: [id number] | REFERENCE LAB | | | [place] | | | [facility] | | | [facility] | + + + + + + + + | Performing | Address | City/State/Zipcode | Phone Number | | Organization | | | | + + + + + | [facility] | [address] | [place] [address] | [phone] | | [place] | | | | | [facility] [...] + + + | Antibody ID | AntiIlya | | REFERENCE | | | | | | LAB [place] | | | | | | [facility] | | | | | | [facility] | | | | | | BLO[facility] | | | | | | CENTER | | + + + + + + + + | Specimen | + + | | + + + + + | Narrative | Performed At | + + + | Specimen Expiration Date: [id number] | RE[facility]ENCE [facility] | | | [place] | | | [facility] | | | [facility] | + + + + + + + + | Performing | Address | City/State/Zipcode | Phone Number | | Organization | | | | + + + + + | [facility] | [address] | [place] [address] | [phone] | | [place] | | | | | [facility] [...] | | | | | | LAB [place] | | | | | | [facility] | | | | | | [facility] | | | | | | BLOOD | | | | | | CENTER | | + + + + + + | Rh Type | Negative | | REFERENCE | | | | | | [facility] [place] | | | | | | [facility] | | | | | | [facility] | | | | | | [facility] | | | | | | CENTER | | + + + + + + | Antibody | Positive | | REFERENCE | | | Screen | | | LAB [place] | | | | | | [place] [...] + + + | Specimen Expiration Date: [id number] | REFER[facility] LAB | | | [place] | | | [facility] | | | [facility] | + + + + + + + + | Performing | Address | City/State/Zipcode | Phone Number | | Organization | | | | + + + + + | REFERENCE LAB | [address] | [place] [address] | [phone] | | [place] | | | | | [facility] [...] | | | | | seconds.Performed by [facility] | | | | | | [address], | | | | | | [place] [address] | | | | + + + + + + + + | Specimen | + + | Blood specimen | | (specimen) | + + + + + + + | Performing | Address | City/State/Zipcode | Phone Number | | Organization | | | | + + + + + | [facility] | [address] [facility] [address] | [place] [address] | | | [facility] | | | | | [...] | proximal 40% LAD, 95% ostial septal stage set designer, 70% mid and distal LAD, 100% mid [...] LAD, 95% | | | ostial septal stage set designer, 70% mid and distal LAD, 100% mid [...] lateral castillo from | | | prior MA. 4. Mild destinee infarct ischemia. LARGE SEVERE inferior and | | | Lateral MA. 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 | | Duration:176 msP Horizontal [place]:19 degP Front [place]:70 degQ Onset:512 | | | msQRSD Interval:110 msQT Interval:444 msQTcB:480 msQTcF:467 msQRS | | | Horizontal [place]:157 degQRS [place]:-77 degI-40 Horizontal [place]:75 degI-40 | | | Front [place]:-59 degT-40 Horizontal [place]:240 degT-40 Front [place]:267 | | | degT Horizontal [place]:91 degT Wave [place]:68 degS-T Horizontal [place]:98 | | | degS-T Front [place]:103 degSeverity:- ABNORMAL ECG -INTERP:SINUS | | | RHYTHMINTERP:NONSPECIFIC IVCD WITH LADINTERP:INFERIOR INFARCT, | | | OLDElectronically signed by: ELIZABETH CAMPBELL 06-12-2018 11:25:24 | | |QTcB:480 ms | | |QTcF:467 ms | | |QRS Horizontal [place]:157 deg | | |QRS [place]:-77 deg | | |I-40 Horizontal [place]:75 deg | | |I-40 Front [place]:-59 deg | | |T-40 Horizontal [place]:240 deg | | |T-40 Front [place]:267 deg | | |T Horizontal [place]:91 deg | | |T Wave [place]:68 deg | | |S-T Horizontal [place]:98 deg | | |S-T Front [place]:103 deg | | |Severity:- ABNORMAL ECG - [...] + + | [facility] | [address] | [place] [address] | [phone] | + + + + + Magnesium (06/09/2018 3:07 AM PDT) + + + +--------- ----+ + | Component | Value | Ref Range | Performe d | Pathologist | | | | | At | Signature | + + + +--------- ----+ + | Magnesium | 2.1Comment: Performed | 1.7 - 2.4 mg/dL | [facility] | | | | by [facility] [address], | | SACRED | | | | [place] [address] | | HEART | | | |Performed by [facility] [address], [place] [address] | | MEDICAL | | | | [...] + | [facility] | [address] | [place] [address] | | | [facility] | | | | | [...] ENCE | | | Basophils | by [place] [address], | [place]/uL | SACRED | | | | [place] [address] | | HEART | | | |Performed by [facility] [address], [place] [address] | | MEDICA L | | | [...] + | [facility] | [address] | [place] [address] | | | [facility] | | | | | [...] | | MEDICAL | | | | [facility] [address], | | CENTER | | | | [place] [address] | | LABORATORY | | | | [...] + | [facility] | [address] | [place] [address] | | | [facility] | | | | | [...] + + | Performing | Address | City/State/[facility] [place] | Phone Number | | Organization | [...] | | | | | TroponinPerformed by [facility] | | | | | | [address], | | | | | | [place] [address] | | | | + + + + + + + + | Specimen | + + | Blood specimen | | (specimen) | + + + + + + + | Performing | Address | City/State/Zipcode | Phone Number | | Organization | | | | + + + + + | [facility] | [address] | [place] [address] | | | [facility] | | | | | [...] | TRACEMASTER | | Duration:200 msP Horizontal [place]:19 degP Front [place]:58 degQ Onset:512 | | | msQRSD Interval:110 msQT Interval:404 msQTcB:506 msQTcF:469 msQRS | | | Horizontal [place]:184 degQRS [place]:265 degI-40 Horizontal [place]:78 degI-40 | | | Front [place]:269 degT-40 Horizontal [place]:240 degT-40 Front [place]:259 | | | degT Horizontal [place]:77 degT Wave [place]:63 degS-T Horizontal [place]:83 | | | degS-T Front [place]:99 degSeverity:- ABNORMAL ECG -INTERP:SINUS | | | RHYTHMINTERP:NONSPECIFIC IVCD WITH LADINTERP:INFERIOR INFARCT, | | | OLDElectronically signed by: ELIZABETH CAMPBELL 06-12-2018 11:24:43 | | |QTcB:506 ms | | |QTcF:469 ms | | |QRS Horizontal [place]:184 deg | | |QRS [place]:265 deg | | |I-40 Horizontal [place]:78 deg | | |I-40 Front [place]:269 deg | | |T-40 Horizontal [place]:240 deg | | |T-40 Front [place]:259 deg | | |T Horizontal [place]:77 deg | | |T Wave [place]:63 deg | | |S-T Horizontal [place]:83 deg | | |S-T Front [place]:99 deg | | |Severity:- ABNORMAL ECG - [...] + + | [facility]ITH[facility] REY | [address] | [place] [address] | [phone] | + + + + + Troponin [...] by | | | | | | [facility] [address], | | | | | | [place] [address] | | | | + + + + + + + + | Specimen | + + | Blood specimen | | (specimen) | + + + + + + + | Performing | Address | City/State/Zipcode | Phone Number | | Organization | | | | + + + + + | [facility] | [address] | [place] [address] | | | [facility] | | | | | [...] PROVIDEN CE | | | | by [facility] [address], | | SACRED | | | | [place] [address] | | HEART | | | |Performed by [facility] [address], [place] [address] | | MEDICAL | | | | [...] [facility] [address] | [place] [address] | | | [facility] | | | | | [...] | | MEDICAL | | | | [facility] [address], | | CENTER | | | | [place] [address] | | LABORATORY | | | | [...] + + | [facility] | [address] | [place] [address] | | | [facility] | | | | | [...] 0.293 (AA)Comment: | 0.000 - 0.069 | [facility] | | | | Critical TROP called to | ng/mL | SACRED | | | | and read back by 6S | | HEART | | | | MATTI Herrera at [address] [place]. | | MEDICAL | | | | [...] | | | | | TroponinPerformed by [facility] | | | | | | [address], | | | | | | [place] [address] | | | | + + + + + + + + | Specimen | + + | Blood specimen | | (specimen) | + + + + + + + | Performing | Address | City/State/Zipcode | Phone Number | | Organization | | | | + + + + + | [facility] | [address] | [place] [address] | | | [facility] | | | | | [...] by | | | | | | [facility] [address], | | | | | | [place] [address] | | | | + + + [...] [facility] [address] | [place] [address] | | | [facility] | | | | | [...] PROVIDENCE | | | | Performed by [facility] [address] | | SACRED | | | | [address] [place] | | HEART | | | | [address] | | MEDICAL | | | | [...] + | [facility] | [address] | [place] [address] | | | [facility] | | | | | [...] | | | | | battery.Performed by [facility] | | | | | | [address], | | | | | | [place] [address] | | | | + + + [...] [facility] [address] | [place] [address] | | | [facility] | | | | | [...] 0.305 (AA)Comment: | 0.000 - 0.069 | [facility] | | | | Critical TRPI called [...] | | | | | [place].Performed by [facility] [address] | | | | | | [address] [place] | | | | | | [address] | | | | + + + [...] [facility] [address] | [place] [address] | | | [facility] | | | | | [...] YIN E | | | SERUM | [facility] [address], | | SACRED | | | | [place], [place] | | HEART | | | |Performed by [facility] [address], [place] | | MEDICAL | | | [...] SACRED | [address] | [place], [place] | | | [facility] | | | | | [...] U/L | PROVIDEDEMIE | | | | [facility] [address], | | SACRED | | | | [place] [address] | | HEART | | | |Performed by [facility] [address], [place] [address] | | MEDICAL | | | | [...] + | [facility] | [address] | [place] [address] | | | [facility] | | | | | [...] | | MEDICAL | | | | [facility] [address], | | CENTER | | | | [place] [address] | | LABORATORY | | | | | | [place] | | + + + + + + + + | Specimen | + + | Blood specimen | | (specimen) | + + + + + + + | Performing | Address | City/State/Zipcode | Phone Number | | Organization | | | | + + + + + | [facility] | [address] | [place] [address] | | | [facility] | | | | | [...] ENCE | | | Basophils | by [facility] [address] [facility] [address], | K/uL | SACRED | | | | [place] [address] | | HEART | | | |Performed by [facility] [address], [place] [address] | | MEDICA L | | | [...] + | [facility] | [address] | [place] [address] | | | [facility] | | | | | [...] | PROVIDENCE | | | | by [facility] [address], | | SACRED | | | | [place] [address] | | HEART | | | |Performed by [facility] [address], [place] [address] | | MEDICAL | | | | [...] [facility] [address] | [place] [address] | | | [facility] | | | | | [...] U/L | PROVIDENCE | | | | [facility] [address], | | SACRED | | | | [place] | | HEART | | | |Performed by [facility] [address], [place] | | MEDICAL | | | [...] + + | [facility] | [address] | [place], [place] | | | [facility] [...] - 1.030 | PROVIDENCE | | | [place] | | | SACRED | | | [...] | | | SOURCE | Performed by [facility] [address] | | SACRED | | | | [place] | | HEART | | | | [address] | | MEDICAL | | | | [...] + | [facility] | [address] | [place] [address] | | | [facility] | | | | | [...] of unspecified type of | | vessel, dot lake or graft | + + documented in [...] First dose on [facility] 06/11/18 at 2100 | | PM [...] PDT | | | | | Starting [facility] 06/11/18 at 1635, | | | [...] PRN, Starting 06/09/18 at 1247, | | 18 12:47 [...] 1:05 | | | | | Starting Fri06/09/18 at 1305, | | PM PDT | | | | | Intra-op | | | | | | + +-------+ +---------+---+---+ +---+---+ | | | +---+---+ + +-------+ +-------+---+---+ | lidocaine 1% injection ONCE | Given | 06/09/20 | 2 mLs | | | | PRN, Starting Fri06/09/18 at 1243, | | 18 12:43 | [...]
--- OUTSIDE RECORDS SUMMARY | ~2019-09-08 | XMS | Encounter Summary ---
Demographics + + + | Address | [address] | | | [place] [address] | + + + | Home Phone [...] | [facility] | | | and Ankitana | + + + | Organization | [facility] | [...] Providers + +------+ + | Care Credit Card Associate Name | Role | Phone | + +------+ + | Yolanda Lee | PCP | | + +------+ + Encounter Details +--------+ + + + + | Date | Type | Department | Care Team | Description | +--------+ + + + + | 03/03/ | Hospital | [facility] | Jesse Siddiqi MD | Cellulitis and | | 2015 - | Encounter | [facility] | [address], | abscess of hand, | | | | INFUSION [address] | [address] floor [place], | except fingers and | | 03/05/ | | [address] [place], [place] | [place] [address] | thumb; Bacteremia | | 2015 | | [address] | [phone] | due to Streptococcus | | | | [phone] | | / Sepsis | +--------+ + [...] | | | | | | [place] [address] | | | | | | [phone] | | | | | | | [...]
--- OUTSIDE RECORDS SUMMARY | ~2019-09-08 | XMS | Encounter Summary ---
Demographics + + + | Address | [address] | | | [place] [address] | + + + | Home Phone | | + + + | Preferred Language | Unknown | + + + | Marital Status | | + + + | Anabaptism Affiliation | 1041 | + + + | Race | Unknown | + + + | Ethnic Group | Unknown | + + + Author + + + | Author | [facility] | | | and Ankitana | + + + | Organization | [facility] | | [...] Team Providers + +------+ + | Care Recorder Gravity Prospecting Name | Role | Phone | + +------+ + PCP | Unavailable | + +------+ + Encounter Details +--------+ + + + + | Date | Type | Department | Care Team | Description | +--------+ + + + + | 01/15/ | Hospital | [facility] | Kulwinder Spangler, | | | 2005 | Encounter | [facility] | [address] | | | | [address] | [facility] | | | | | [facility] | [place] [address] | | | | | [place] | [phone] | | | | | [address] | | | | | | [phone] | | | +--------+ + + + [...] | | | | | | [place] [address] | | | | | | [phone] | | | | | | | | +--------+---------+ + + + documented as of this encounter Visit Diagnoses Not on filedocumented in this encounter"
--- OUTSIDE RECORDS SUMMARY | ~2019-09-08 | XMS | Encounter Summary ---
Demographics + + + | Address | [address] | | | [place] [address] | + + + | Home Phone [...] Author | [facility] | | | and Ankitana | + + + | Organization | [facility] | | | and [...] Team Providers + +------+ + | Care Technical Healthcare Consultant Name | Role | Phone | [...] [address] | | | | | [place] [address] | [facility] | | | | | [facility] | [place] [address] | | | | | [place] | [phone] | | | | | [address] | | | | | | [phone] | | | +--------+ + + + [...] | | | | | | [place] [address] | | | | | | [phone] | | | | | | | | +--------+---------+ + + + documented as of this encounter Visit Diagnoses Not on filedocumented in this encounter"
--- OUTSIDE RECORDS SUMMARY | ~2019-09-08 | XMS | Encounter Summary ---
Demographics + + + | Address | [address] | | | [place] [address] | + + + | Home Phone | | + + + | Preferred Language | Unknown | + + + | Marital Status | | + + + | Confucianism Affiliation | 1041 | + + + | Race | Unknown | + + + | Ethnic Group | Unknown | + + + Author + + + | Author | [facility] | | | and Ankitana | + + + | Organization | [facility] | [...] Team Providers + +------+ + | Care Formula Room Worker Name | Role | Phone | [...] [address] | | | | | [place] [address] | [facility] | | | | | [facility] | [place] [address] | | | | | [place] | [phone] | | | | | [address] | | | | | | [phone] | | | +--------+ + + + [...] [address] | | | | | | [place], | | | | | | [place] [address] | | | | | | [phone] | | | | | | | [...] + + + | Exam Performed Location: [facility] | MISCELANIOUS | | TWO-VIEW CHEST [...] 07/31/2013 11:20 AM PDT Exam Performed Location: [facility]-RAYCLINICAL INFORMATION:Upper respiratory | | [...] + | MISCELLANEOUS LAB | | | [phone] | + +---------+ + + | MISCELANIOUS LAB | | | [phone] | + +---------+ + + documented in this encounter Visit Diagnoses Not on filedocumented in this encounter"
--- OUTSIDE RECORDS SUMMARY | ~2019-09-08 | XMS | Encounter Summary ---
Demographics + + + | Address | [address] | | | [place] [address] | + + + | Home Phone [...] Author | [facility] | | | and Ankitana | + + + | Organization | [facility] | [...] Team Providers + +------+ + | Care Drop Press Hand Name | Role | Phone | + +------+ + PCP | Unavailable | + +------+ + Encounter Details +--------+ + + + + | Date | Type | Department | Care Team | Description | +--------+ + + + + | 11/26/ | Hospital | [facility] | Geovanni Milan MD | | | 2006 | Encounter | [facility] | [address] | | | | | CENTER [address] | [place], [place] | | | | | [address] | [address] | | | | | [place] | | | | | | [address] | | | | | | [phone] | | | +--------+ + + + [...] | | | | | | [place] [address] | | | | | | [phone] | | | | | | | | +--------+---------+ + + + documented as of this encounter Visit Diagnoses Not on filedocumented in this encounter"
--- OUTSIDE RECORDS SUMMARY | ~2019-09-08 | XMS | Encounter Summary ---
Demographics + + + | Address | [address] | | | [place] [address] | + + + | Home Phone [...] Author | [facility] | | | and Ankitana | + + + | Organization | [facility] | | | and [...] Providers + +------+ + | Care Power Plant Installer Name | Role | Phone | [...] | [address] | [place] [address] | (Primary Dx); | | | | [place] | [phone] | Abscess of left | | | | [address] | | upper arm and | | | | [phone] | Sheryl Cunha, | forearm | | | | | MANAGER ADULT [address] | | | | | | [place] | | | | | | [address] | | | | | | | [...] | | | | | | [place] [address] | | | | | | [phone] | | | | | | | [...] + + | [facility] | [address] | [place] [address] | | | [facility] | | | | | LABORATORY [...] + + | [facility] | [address] | [place] [address] | | | [facility] | | | | | LABORATORY [...] + + + | Glucose | 94Comment: [place] Citizen | 65 - 99 mg/dL | [facility] | | | | Diabetes Association | [...] + + | [facility] | [address] | [place] [address] | | | [facility] | | | | | LABORATORY [...] | ---- 05/25/2015 | | | 14:26 [facility] Emergency -3 | | | Cellulitis 02/22/2015 07:09 [facility] | | | Emergency -Urinary tract infection, [...] ------ --------- 4 | | | 0 [facility] 3 | | | 0 [facility] 7 | | | 0 Total Note: Visits indicate total | | | known visits. [place] Dx are the number of primary diagnoses on | | | the [facility] non-emergent dx list. | | | | | | --- | | | | | | --- Care Guidelines exist for the following facilities: [facility] | | | [facility] ( 09/07/2013 ) [place] Prescription Review PDMP | | | Report [...]
--- OUTSIDE RECORDS SUMMARY | ~2019-09-08 | XMS | Encounter Summary ---
Demographics + + + | Address | [address] | | | [place] [address] | + + + | Home Phone [...] | [facility] | | | and Ankitana | + + + | Organization | [facility] | | | and [...] Providers + +------+ + | Care Staff Midwife Name | Role | Phone | [...] | | | | [address] | [phone] | | | | | [place] | | | | | | [address] | | | | | | [phone] | | | +--------+ + + + [...] | | | | | | [place] [address] | | | | | | [phone] | | | | | | | | +--------+---------+ + + + documented as of this encounter Visit Diagnoses Not on filedocumented in this encounter"
--- OUTSIDE RECORDS SUMMARY | ~2019-09-08 | XMS | Encounter Summary ---
Demographics + + + | Address | [address] | | | [place] [address] | + + + | Home Phone [...] | Author | [facility] | | | and Ankitana | + + + | Organization | [facility] | | | and [...] Providers + +------+ + | Care Customer Insight Analyst Name | Role | Phone | + [...] | | | | [address] | [phone] | | | | | [place] | | | | | | [address] | | | | | | [phone] | | | +--------+ + + + [...] | | | | | | [place] [address] | | | | | | [phone] | | | | | | | | +--------+---------+ + + + documented as of this encounter Visit Diagnoses Not on filedocumented in this encounter"
--- OUTSIDE RECORDS SUMMARY | ~2019-09-08 | XMS | Encounter Summary ---
Demographics + + + | Address | [address] | | | [place] [address] | + + + | Home Phone [...] | Author | [facility] | | | and Ankitana | + + + | Organization | [facility] [...] Providers + +------+ + | Care Technical Director Name | Role | Phone | [...] | | | CENTER [address] | [place], [place] | | | | | [address] | [address] | | | | | [place] | | | | | | [address] | | | | | | [phone] | | | +--------+ + + + [...] | | | | | | [place] [address] | | | | | | [phone] | | | | | | | | +--------+---------+ + + + documented as of this encounter Visit Diagnoses Not on filedocumented in this encounter"
--- OUTSIDE RECORDS SUMMARY | ~2019-09-08 | XMS | Encounter Summary ---
Demographics + + + | Address | [address] | | | [place] [address] | + + + | Home Phone [...] | Author | [facility] | | | and Ankitana | + + + | Organization | [facility] | | | and Ankitana [...] Team Providers + +------+ + | Care Svp Digital Ad Sales Name | Role | Phone | + [...] | | | | | [place] | [address] | | | | | [place] | | | | | | [address] | | | | | | [phone] | | | +--------+ + + + [...] | | | | | | [place] [address] | | | | | | [phone] | | | | | | | | +--------+---------+ + + + documented as of this encounter Visit Diagnoses Not on filedocumented in this encounter"
--- OUTSIDE RECORDS SUMMARY | ~2019-09-08 | XMS | Encounter Summary ---
Demographics + + + | Address | [address] | | | [place] [address] | + + + | Home Phone [...] | Author | [facility] | | | and Ankitana | + + + | Organization | [facility] | [...] Team Providers + +------+ + | Care Addictions Counselor Assistant Name | Role | Phone | [...] Congestive | MD Jorge | [address] | | | | | heart | [address] | [place], | | | | | failure, | [address] | [place] | | | | | unspecified | [place], | [address] | | | | | HF | [place] [address] | Phone: | | | | | chronicity, | Phone: | [phone] | | | | | unspecified | [phone] | Fax: | | | | | heart | Fax: | [phone] | | | | | failure type | [phone] | | | | | | (HCC) | | | | | | | Procedures | | | | | | | ECHO | | | | | | | Complete [place] | | | | | | | ECHO HEART | | | | | | | XTHORACIC,CO | | | | | | | MPLETE W | | | | | | | DOPPLER ME | | | | | | | [...] + + | 10/01/ | Telephone | [facility] | Jorge Siddiqi, | Other (patient needs | | 2018 | | CARDIOLOGY [address] | [address] [facility] | an echo also) | | | | [address] [place], | [place], | | | | | [place] [address] | [place] [address] | | | | | [phone] | [phone] | | | | | | | [...] | | | | | | [place] [address] | | | | | | [phone] | | | | | | | [...]
--- OUTSIDE RECORDS SUMMARY | ~2019-09-08 | XMS | Encounter Summary ---
Demographics + + + | Address | [address] | | | [place] [address] | + + + | Home Phone [...] | Author | [facility] | | | and Ankitana | + + + | Organization | [facility] | | | and [...] Team Providers + +------+ + | Care Body Former Name | Role | Phone | + +------+ + | Yolanda Lee | PCP | | + +------+ + Encounter Details +--------+ + + + + | Date | Type | Department | Care Team | Description | +--------+ + + + + | 02/25/ | Hospital | [facility] | Jesse Siddiqi MD | Cellulitis and | | 2015 | Encounter | [facility] MED CTR | [address], | abscess of hand, | | | | ORTHOPEDICS [address] | 9th floor [place], | except fingers and | | | | [address] [place], [place] | [place] [address] | thumb; Bacteremia | | | | [address] | [phone] | due to Streptococcus | | | | [phone] | | / Sepsis | +--------+ + [...] | | | | | | [place] [address] | | | | | | [phone] | | | | | | | [...]
--- OUTSIDE RECORDS SUMMARY | ~2019-09-08 | XMS | Encounter Summary ---
Demographics + + + | Address | [address] | | | [place] [address] | + + + | Home Phone | | + + + | Preferred Language | Unknown | + + + | Marital Status | | + + + | Druze Affiliation | 1041 | + + + | Race | Unknown | + + + | Ethnic Group | Unknown | + + + Author + + + | Author | [facility] | | | and Ankitana | + + + | Organization | [facility] | [...] Team Providers + +------+ + | Care General Contractor Name | Role | Phone | + +------+ + | [place] [facility] | PCP | | + [...] | | FAMILY EMERGENCY | [address] | (Primary Dx) | | | | CENTER [address] [place], [place] | | | | | [address] | [address] | | | | | [place], [place] | | | | | | [address] | | | | | | [phone] | | | +--------+ + + + [...] be sent through Care Everywhere.HIP CONTUSION ( NEPALI)documented in this encounter Medications at Time of [...] [place], | | | | | | [place] [address] | | | | | | [phone] | | | | | | | [...] + + | [facility] | [facility], [address] | [place] [address] | [phone] | | | [place] | | | + + + + + XR Pelvis 1 or 2 Vw (09/27/2013 7:51 PM PST) + + | Specimen | + + | | + + + + + | Narrative | Performed At | + + + | AP PELVIS AND TWO VIEWS OF THE LEFT HIP, 09/27/2013 CLINICAL | [facility] | | INFORMATION: Worsening left hip pain [...] + + | [facility] | [facility], [address] | [place] [address] | [phone] | | | [place] | | | [...]
--- OUTSIDE RECORDS SUMMARY | ~2019-09-08 | XMS | Encounter Summary ---
Demographics + + + | Address | [address] | | | [place] [address] | + + + | Home Phone [...] | Author | [facility] | | | and Ankitana | + + + | Organization | [facility] | [...] Team Providers + +------+ + | Care Solutions Market Consultant Name | Role | Phone | + +------+ + PCP | Unavailable | + +------+ + Encounter Details +--------+ + + + + | Date | Type | Department | Care Team | Description | +--------+ + + + + | 07/12/ | Hospital | [facility] | Jesse Herr MD | | | 2012 | Encounter | FAMILY EMERGENCY | [address] | | | | | CENTER [address] | [place], [place] | | | | | [place] | [address] | | | | | [place] | | | | | | [address] | | | | | | [phone] | | | +--------+ + + + [...] | | | | | | [place] [address] | | | | | | [phone] | | | | | | | | +--------+---------+ + + + documented as of this encounter Procedures + +--------+ + + + | Procedure Name | Priori | Date/Time | Associated Diagnosis | Comments | | | ty | | | | + +--------+ + + + | CULTURE, WOUND, | Routin | 07/12/2013 | | Results for this | | SMEAR | e | 3:17 PM | | procedure are in the | | | | PDT | | results section. | + +--------+ + + + documented in this encounter Results Culture, Wound, Smear (07/12/2013 3:17 PM PDT) + + + + + [...] + + + + | Status | 07/15/2013 Final | | [facility] | | | [...] + + + | [facility] | [address] | [place] [address] | | | [facility] | | | | | LABORATORY | | | | + + + + + documented in this encounter Visit Diagnoses Not on filedocumented in this encounter"
--- OUTSIDE RECORDS SUMMARY | ~2019-09-08 | XMS | Encounter Summary ---
Demographics + + + | Address | [address] | | | [place] [address] | + + + | Home Phone [...] Author | [facility] | | | and Ankitana | + + + | Organization | [facility] | | [...] Providers + +------+ + | Care Grocery Sacker Name | Role | Phone | + [...] [address] | | | | | [place] [address] | [facility] | | | | | [facility] | [address] [place] | | | | | [place] | [address] | | | | | [address] | | | | | | [phone] | | | +--------+ + + + [...] | | | | | | [place] [address] | | | | | | [phone] | | | | | | | | +--------+---------+ + + + documented as of this encounter Visit Diagnoses Not on filedocumented in this encounter"
--- OUTSIDE RECORDS SUMMARY | ~2019-09-08 | XMS | Encounter Summary ---
Demographics + + + | Address | [address] | | | [place] [address] | + + + | Home Phone [...] | Author | [facility] | | | and Ankitana | + + + | Organization | [facility] | [...] + +------+ + | Care High School Physical Education Teacher Name | Role | Phone | + +------+ + | Yolanda Lee | PCP | | + +------+ + Encounter Details +--------+ + + + + | Date | Type | Department | Care Team | Description | +--------+ + + + + | 03/09/ | Hospital | [facility] | Jesse Siddiqi MD | Cellulitis and | | 2015 | Encounter | HEART MED CTR OP | [address], | abscess of hand, | | | | INFUSION [address] | 9th floor [place], | except fingers and | | | | Ave [place], [place] | [place] [address] | thumb; Bacteremia | | | | [address] | [phone] | due to Streptococcus | | | | [phone] | | / Sepsis | +--------+ + [...] | | | | | | [place] [address] | | | | | | [phone] | | | | | | | [...]
--- OUTSIDE RECORDS SUMMARY | ~2019-09-08 | XMS | Encounter Summary ---
Demographics + + + | Address | [address] | | | [place] [address] | + + + | Home Phone [...] Author | [facility] | | | and Ankitana | + + + | Organization | [facility] | | | and Ankitana [...] Team Providers + +------+ + | Care Trim Line Worker Name | Role | Phone | [...] | | | | [address] | [phone] | | | | | [place] | | | | | | [address] | | | | | | [phone] | | | +--------+ + + + [...] | | | | | | [place] [address] | | | | | | [phone] | | | | | | | | +--------+---------+ + + + documented as of this encounter Visit Diagnoses Not on filedocumented in this encounter"
--- OUTSIDE RECORDS SUMMARY | ~2019-09-08 | XMS | Encounter Summary ---
Demographics + + + | Address | [address] | | | [place] [address] | + + + | Home Phone [...] + | Author | [facility] | | | and Ankitana | + + + | Organization | [facility] | | | and [...] + +------+ + | Care Community Relations Representative Name | Role | Phone [...] | | | | | apnea) | [address] | [place], [place] | | | | | | [place], | [address] Phone: | | | | | | [place] | [phone] | | | | | | [address] | Fax: | | | | | | Phone: | [phone] | | | | | | [phone] | | | | | | | Fax: | | | | | | | [phone] | | +--------+ + + + + [...] + + | 10/22/ | Office | [facility] | Carol, | Hypertension, | | 2019 | Visit | CARDIOLOGY [address] | [address] | unspecified type | | | | [place], | [place], | (Primary Dx); | | | | [place] [address] | [place] [address] | Ischemic | | | | [phone] | [phone] | cardiomyopathy; | | | | | [...] Abnormal ECG Confirmed by MARIANGEL WALTON MD ([id number]) on 10/01/2018 12:13:49 PM none done today LAB RESULTS reviewed during visit today primarily from [facility]: LIPID No results found for: CHOL, [...] Value 06/09/2018 37 I reviewed records from [facility] for office visit on 10/01/2018 w hich is summarized in the HPI. RESULTS- I reviewed reports from [facility]: No results found. Above data and testing is reviewed this visit; testing below is historical data unless othe rwise specified. ASSESSMENT: 1. Coronary artery disease with ischemia cardiomyopathy A. History cardiac arrest post unknown stenting in [address] [facility] in [place] B. Echocardiogram 2D , M-mode, Doppler and [...] unction. Trace TR, pulmonic valve normal Trace TX, visible portions of ascending aorta and a [...] She is in class II of the [place] Heart Association functional class. Heart failure stage [...] 1. She will have echocardiogram checked in [facility] 2. Increase Metoprolol XL 100 mg in [...] this chart may have been created with mobiTeris voice recognition software. Occasi onal wrong-word or [...] W | | | | | | [place], | | | | | | [place] [address] | | | | | | [phone] | | | | | | | [...] of unspecified type of | | vessel, inupiat or graft | + + | PATRICE (obstructive sleep apnea) Obstructive sleep apnea (adult) (pediatric) | + + documented in this encounter
--- OUTSIDE RECORDS SUMMARY | ~2019-09-08 | XMS | Encounter Summary ---
Demographics + + + | Address | [address] | | | [place] [address] | + + + | Home Phone [...] | Author | [facility] | | | and Ankitana | + + + | Organization | [facility] | | [...] Team Providers + +------+ + | Care Hotel Sales Manager Name | Role | Phone [...] | | | | | diverticulit | [address] | [address] | | | | | is | [address] | [address] [place] | | | | | | [place], | [address] [place] | | | | | | [place] [address] | [place] | | | | | | Phone: | [address] | | | | | | [phone] | Phone: | | | | | | Fax: | [phone] | | | | | | [phone] | Fax: | | | | | | | [phone] | + +--------+ + + + + [...] C virus | | | | [address], [place] | [place] [address] | infection without | | | | [address] | [phone] | hepatic coma, | | | | [phone] | | unspecified | | | | [...] | | | | | | abuse ([facility]) | +--------+---------+ + + + [...] Start miralax 1-2 scoops a day, 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 Labs for hepatitis [...] instructions for rich l prep; rx to [facility]; info given to pt; completed case request order, notes to [place].; Advised pt to go to [facility] for labs today. Aba Chapa MD - 09/01/2019 1:00 PM PSTFormatting of this note might be different from the [facility] Outpatient Gastroenterology Consult Note Date of Office Visit: 09/01/19 Referring Provider: BRADLEY Romo [address] [place] [address] Providing Physician: Aba Gonsalez MD. Chief Complaint: No chief complaint on file. History of Present Illness Smitha Pichardo is a 64 y.o. female with bipolar 1 disorder, history of heroin dependen ce, methamphetamine abuse, alcohol abuse, CT, status post CABG, severe peripheral artery dis ease, marijuana use, tobacco use, who is referred by lois for evaluation of abdominal pain. In March she went into [facility] ER for generalized abdominal pain. She [...] chronic, stage II (GFR 60-89 ml/min) H/O CT (myocardial infarction) Hepatitis C Risk factors for obstructive sleep apnea Cardiac arrest with ventricular fibrillation Past Medical History Past Medical History: Diagnosis Date Abdominal pain Acute CT (HCC) 2011 Anxiety Arteriosclerotic heart disease Atrial [...] Cor Angio; Surgeon: Shad Schuler MD; Location: [facility] CV LAB CARDIAC CATHERIZATION Right 06/09/2018 Procedure: CV LHC; Surgeon: Shad Schuler MD; Location: [facility] CV LAB CARDIAC CATHERIZATION Right 06/09/2018 Procedure: CV LV; Surgeon: Shad Schuler MD; Location: [facility] CV LAB CATARACT REMOVAL Left 08/13/2018 [...] JU; Surgeon: Hemanth Webster MD; Loc ation: [facility] MAIN OR HYSTERECTOMY 1995 Family History Family [...] She lives with her daughter, Miriam, in [place]. She is on disability. She is a [...] No follow-ups on file. CC: BRADLEY Romo [address] [place] [address] Kiran Oneill [id number] [place] [address] Portions of this chart may have been created with FiNC voice recognition software. Occasi onal wrong-word or [...] W | | | | | | [place], | | | | | | [place] [address] | | | | | | [phone] | | | | | | | [...]
--- OUTSIDE RECORDS SUMMARY | ~2019-09-08 | XMS | Encounter Summary ---
Demographics + + + | Address | [address] | | | [place] [address] | + + + | Home Phone | | + + + | Preferred Language | Unknown | + + + | Marital Status | | + + + | Lutheran Affiliation | 1041 | + + + | Race | Unknown | + + + | Ethnic Group | Unknown | + + + Author + + + | Author | [facility] | | | and Ankitana | + + + | Organization | [facility] | | | and [...] Team Providers + +------+ + | Care Product Tester Fiberglass Name | Role | Phone | + +------+ + PCP | Unavailable | + +------+ + Encounter Details +--------+ + + + + | Date | Type | Department | Care Team | Description | +--------+ + + + + | 08/10/ | Hospital | [facility] | [place], | | | 2010 | Encounter | HEART MED CTR | [address] | | | | | EMERGENCY CENTER | [place] [address] | | | | | [address] | [phone] | | | | | [place] | | | | | | [address] | | | | | | [phone] | | | +--------+ + + + [...] W | | | | | | [place], | | | | | | [place] [address] | | | | | | [phone] | | | | | | | | +--------+---------+ + + + documented as of this encounter Visit Diagnoses Not on filedocumented in this encounter"
--- OUTSIDE RECORDS SUMMARY | ~2019-09-08 | XMS | Encounter Summary ---
Demographics + + + | Address | [address] | | | [place] [address] | + + + | Home Phone [...] Author | [facility] | | | and Ankitana | + + + | Organization | [facility] [...] Team Providers + +------+ + | Care Furniture Delivery Driver Name | Role | Phone | + +------+ + | Yolanda Lee | PCP | | + +------+ + Encounter Details +--------+ + + + + | Date | Type | Department | Care Team | Description | +--------+ + + + + | 02/26/ | Hospital | [facility] | Jesse Siddiqi MD | Cellulitis and | | 2015 | Encounter | HEART MED CTR | [address], | abscess of hand, | | | | ORTHOPEDICS [address] | 9th floor [place] | except fingers and | | | | [address] [place] | [place] [address] | thumb; Bacteremia | | | | [address] | [phone] | due to Streptococcus | | | | [phone] | | / Sepsis | +--------+ + [...] | | | | | | [place] [address] | | | | | | [phone] | | | | | | | [...]
--- OUTSIDE RECORDS SUMMARY | ~2019-09-08 | XMS | Encounter Summary ---
Demographics + + + | Address | [address] | | | [place] [address] | + + + | Home Phone [...] Author | [facility] | | | and Ankitana | + + + | Organization | [facility] | [...] Team Providers + +------+ + | Care Photogrammetry Airplane Pilot Name | Role | Phone | + [...] [address] | | | | | [address] | [facility] | | | | | [facility] | [place] [address] | | | | | [place] | [phone] | | | | | [address] | | | | | | [phone] | | | +--------+ + + + [...] | | | | | | [place] [address] | | | | | | [phone] | | | | | | | | +--------+---------+ + + + documented as of this encounter Visit Diagnoses Not on filedocumented in this encounter"
--- OUTSIDE RECORDS SUMMARY | ~2019-09-08 | XMS | Encounter Summary ---
Demographics + + + | Address | [address] | | | [place] [address] | + + + | Home Phone [...] Author | [facility] | | | and Ankitana | + + + | Organization | [facility] | | [...] Team Providers + +------+ + | Care Burial Vault Maker Name | Role | Phone | + [...] | | CARDIOLOGY [address] | Tiffanie MARKETING SUPPORT SPECIALIST [address] | | | | | [place], | [place], | | | | | [place] [address] | [place] [address] | | | | | [phone] | [phone] | | | | | | | [...] | | | | | | [place] [address] | | | | | | [phone] | | | | | | | | +--------+---------+ + + + documented as of this encounter Procedures + +--------+ + + + | Procedure Name | Priori | Date/Time | Associated Diagnosis | Comments | | | ty | | | | + +--------+ + + + | EXTERNAL LAB: NATASHA | Routin | 06/24/2019 | | Results [...]
--- OUTSIDE RECORDS SUMMARY | ~2019-09-08 | XMS | Encounter Summary ---
Demographics + + + | Address | [address] | | | [place] [address] | + + + | Home Phone [...] | Author | [facility] | | | and Ankitana | + + + | Organization | [facility] [...] Team Providers + +------+ + | Care Enrichment Specialist Name | Role | Phone | [...] | | | CENTER [address] | [place], [place] | | | | | [place] | [address] | | | | | [place] | | | | | | [address] | | | | | | [phone] | | | +--------+ + + + [...] | | | | | | [place] [address] | | | | | | [phone] | | | | | | | [...] + + + | [facility] | [address] | [place] [address] | | | [facility] | | | | | LABORATORY | | | | + + + + + documented in this encounter Visit Diagnoses Not on filedocumented in this encounter"
--- OUTSIDE RECORDS SUMMARY | ~2019-09-08 | XMS | Encounter Summary ---
Demographics + + + | Address | [address] | | | [place] [address] | + + + | Home Phone [...] Author | [facility] | | | and Ankitana | + + + | Organization | [facility] | [...] Team Providers + +------+ + | Care Oil Heater Installer Name | Role | Phone | + +------+ + | Yolanda Lee | PCP | | + +------+ + Encounter Details +--------+ + + + + | Date | Type | Department | Care Team | Description | +--------+ + + + + | 03/01/ | Hospital | [facility] | Jesse Siddiqi MD | Cellulitis and | | 2015 | Encounter | HEART MED CTR OP | [address], | abscess of hand, | | | | INFUSION [address] | 9th floor [place], | except fingers and | | | | Ave [place], [place] | [place] [address] | thumb; Bacteremia | | | | [address] | [phone] | due to Streptococcus | | | | [phone] | | / Sepsis | +--------+ + [...] + documented as of this encounter Progress Maegan Ellis RN - 03/01/2015 4:54 PM PDTHere for [...] | | | | | | [place] [address] | | | | | | [phone] | | | | | | | [...]
--- OUTSIDE RECORDS SUMMARY | ~2019-09-08 | XMS | Encounter Summary ---
Demographics + + + | Address | [address] | | | [place] [address] | + + + | Home Phone [...] + | Author | [facility] | | | and Ankitana | + + + | Organization | [facility] [...] Providers + +------+ + | Care Rn Baby Name | Role | Phone | + +------+ + | Yolanda Lee | PCP | | + +------+ + Encounter Details +--------+ + + + + | Date | Type | Department | Care Team | Description | +--------+ + + + + | 03/08/ | Hospital | [facility] | Jesse Siddiqi MD | Cellulitis and | | 2015 | Encounter | HEART MED CTR OP | [address], | abscess of hand, | | | | INFUSION [address] | 9[address] floor [place], | except fingers and | | | | [address] [place], [place] | [place] [address] | thumb; Bacteremia | | | | [address] | [phone] | due to Streptococcus | | | | [phone] | | / Sepsis | +--------+ + [...] | | | | | | [place] [address] | | | | | | [phone] | | | | | | | [...]
--- OUTSIDE RECORDS SUMMARY | ~2019-09-08 | XMS | Encounter Summary ---
Demographics + + + | Address | [address] | | | [place] [address] | + + + | Home Phone [...] | Author | [facility] | | | and Ankitana | + + + | Organization | [facility] | [...] Team Providers + +------+ + | Care Suede Cleaner Name | Role | Phone | + +------+ + | Luis Alfredo [facility] | PCP | | + +------+ + Reason for Visit + + + | Reason | Comments | + + + | Dental Pain | | + + + Encounter Details +--------+ + + + + | Date | Type | Department | Care Team | Description | +--------+ + + + + | 04/03/ | Emergency | [facility] | Elio Alfonso, | Abscess, dental | | 2013 | | FAMILY EM[facility]Y | [address] | (Primary Dx) | | | | [place] [address] | [facility] | | | | | [facility] | [place] [address] | | | | | [place], [place] | [phone] | | | | | [address] | | | | | | [phone] | | | +--------+ + + + [...] + + + | Blood Pressure | 167/96 | 04/03/2014 7:06 PM | | | | | PDT | | + + + + + | Pulse | 115 | 04/03/2014 7:04 PM | | | | | PDT | | + + + + + | Temperature | 37.3 C (99.1 F) | 04/03/2014 7:04 PM | | | | | PDT | | + + + + + | Respiratory Rate | 16 | 04/03/2014 7:04 PM | | | | | PDT | | + + + + + | Oxygen Saturation | 92% | 04/03/2014 7:04 PM | | | | | PDT | | + + + + + | Inhaled Oxygen | - | - | | | Concentration | | | | + + + + + | Weight | 68 kg (150 lb) | 04/03/2014 7:04 PM | | | | | PDT | | + + + + + | Height | - | - | | + + + + + | Body Mass Index | 22.81 | 03/20/2014 6:38 PM | | | | | PDT | | + + + + + documented in this encounter Discharge Instructions Instructions George Olivares PA-C - 04/03/2014Medications as directed Followup with dentist KIRAN AttachmentsThe following attachments cannot be sent through Care Everywhere.DENTAL ABSCESS (SERBIAN)documented in this encounter Medications at Time [...] + + + +---------+ + + | clindamycin | Take 1 capsule by | 40 | 0 | 04/03/20 | | | (CLEOCIN) 300 MG | mouth 4 times daily. | capsule | | 14 | 5 | | capsule | | | | [...] | | | | | | vessel, tlingit & haida or | | | | | | [...] + + | traMADol (ULTRAM) | Take 1-2 tablets by | 20 | 0 | 04/03/20 | | | 50 mg tablet | mouth every 4 hours | tablet | | 14 | 5 | | | as needed for Pain. [...] | | | | | | [place] [address] | | | | | | [phone] | | | | | | | | +--------+---------+ + + + documented as of this encounter Procedures + +--------+ + + + | Procedure Name | Priori | Date/Time | Associated Diagnosis | Comments | | | ty | | | | + +--------+ + + + | ED INFORMATION | Routin | 04/03/2014 | | Results for this | | EXCHANGE | e | 6:35 PM | | procedure are in the | | | | PDT | | results section. | + +--------+ + + + documented in this encounter Results ED INFORMATION EXCHANGE (04/03/2014 6:35 PM PDT) + + | Specimen | + + | | + + + + + | Narrative | Performed At | + + + | VISIT TRACKING (3 MO.) Visit Date Location | [facility] | | Type Diagnoses | | | -------- ---- | | | 04/03/2014 18:34 [facility] | | | Problem; VISIT COUNT (1 YR.) Visits Medicaid [place] Dx | | | Location ------ --------- 2 0 | | | 5 0 | | | [facility] 7 0 Total | | | Note: Visits indicate total known visits. Medicaid [place] Dx are the | | | number of primary diagnoses on the [facility]'s non-emergent dx list. | | | | | | --- Care Recommendation: Care at [facility] | | | Past Medical & Surgical History: Anxiety, hypertension, | | | diverticulosis, myocardial infarction 2011, coronary artery stenting, | | | dentalgia.History of drug and alcool abuse. Right arm abscess. | | | Hysterectomy. Medications: Seroquel, Lisinopril, Prozac, Hydroxyzine, | | | Carvedilol, Aspirin, Clopidogrel, Atorvastatin, Nitrostat. | | | Social History: Alcohol, Tobacco and marijuana use. Past h/o | | | heroin use. , disabled, person to notify Miriam Cruz, bernie | | + + + + +---------+ + + | Performing | Address | City/State/Zipcode | Phone Number | | Organization | | | | + +---------+ + + | [facility] | | | | + +---------+ + + documented in this encounter Visit Diagnoses + + | Diagnosis | + + | Abscess, dental - Primary Periapical abscess without sinus | + + documented in this encounter"
--- OUTSIDE RECORDS SUMMARY | ~2019-09-08 | XMS | Encounter Summary ---
Demographics + + + | Address | [address] | | | [place] [address] | + + + | Home Phone [...] + | Author | [facility] | | | and Ankitana | + + + | Organization | [facility] | | | [...] Team Providers + +------+ + | Care Geothermal Operations Manager Name | Role | Phone | [...] | apnea, | [address] | [place] | | | | | unspecified | [address] [place] | [place], | | | | | type | [place], [place] | [place] [address] | | | | | Procedures | [address] | Phone: | | | | | [place] | Phone: | [phone] | | | | | 6/>YRS SLEEP | [phone] | Fax: | | | | | 4/> ADDL | Fax: | [phone] | | | | | SAJAN ATTND | [phone] | | | | | | [place]OM | | | | | | [...] + + | 03/10/ | Hospital | [facility] | Jessy Agarwal MD | Sleep apnea, | | 2019 - | Encounter | MED CTR SLEEP | [address] | unspecified type | | | | CENTER [address] | [place] | | | 03/11/ | | [place] | [address] | | | 2018 | | [address] | | | | | | [phone] | | | +--------+ + + + [...] | | | | | | [place] [address] | | | | | | [phone] | | | | | | | [...] [facility] | | | [place] [address] Polysomnogram | | | Report on Smitha [...] | sleep quality during sleep study as usual.Softball Winder note: patient | | | tried and [...] have been created with | | | [employer] voice recognition software. Occasional wrong-word or | [...] this chart may have been created with [employer] voice | | |recognition software. Occasional wrong-word [...] PM [facility] | | [facility] [place] [id number] Report on Smitha | | Flakita Pichardo [...] quality during sleep study as | | usual.Softball Winder note: patient tried and tolerated medium airfit [...] this chart may have been created with [employer] voice recognition software. | | Occasional wrong-word [...] this chart may have been created with [employer] voice recognition software. Occasi onal wrong-word or [...]
--- OUTSIDE RECORDS SUMMARY | ~2019-09-08 | XMS | Encounter Summary ---
Demographics + + + | Address | [address] | | | [place] [address] | + + + | Home Phone [...] | Author | [facility] | | | and Ankitana | + + + | Organization | [facility] [...] Team Providers + +------+ + | Care Legal Technician Name | Role | Phone | + +------+ + | Yolanda Lee | PCP | | + +------+ + Encounter Details +--------+ + + + + | Date | Type | Department | Care Team | Description | +--------+ + + + + | 03/04/ | Hospital | [facility] | Jesse Siddiqi MD | Cellulitis and | | 2015 | Encounter | HEART MED CTR | [address], | abscess of hand, | | | | CARDIAC MEDICAL [address] | 9th floor [place], | except fingers and | | | | [address] [place], | [place] [address] | thumb; Bacteremia | | | | [place] [address] | [phone] | due to Streptococcus | | | | [phone] | | / Sepsis | +--------+ + [...] | | | | | | [place] [address] | | | | | | [phone] | | | | | | | [...]
--- OUTSIDE RECORDS SUMMARY | ~2019-09-08 | XMS | Encounter Summary ---
Demographics + + + | Address | [address] | | | [place] [address] | + + + | Home Phone [...] | Author | [facility] | | | and Ankitana | + + + | Organization | [facility] [...] Team Providers + +------+ + | Care Tower Erector Helper Name | Role | Phone | + +------+ + PCP | Unavailable | + +------+ + Encounter Details +--------+ + + + + | Date | Type | Department | Care Team | Description | +--------+ + + + + | 05/27/ | Hospital | [facility] | Mani Schneider MD | | | 2012 - | Encounter | [facility] | [address] | | | | | [facility] | [address] | | | 09/21/ | | HOSPITAL [address] | [place], [place] | | | 2012 | | [place] | [address] | | | | | [address] | | | | | | [phone] | | | +--------+ + + + [...] W | | | | | | [place], | | | | | | [place] [address] | | | | | | [phone] | | | | | | | | +--------+---------+ + + + documented as of this encounter Visit Diagnoses Not on filedocumented in this encounter"
--- OUTSIDE RECORDS SUMMARY | ~2019-09-08 | XMS | Encounter Summary ---
Demographics + + + | Address | [address] | | | [place] [address] | + + + | Home Phone [...] | Author | [facility] | | | and Ankitana | + + + | Organization | [facility] | | [...] Team Providers + +------+ + | Care Shake Cutter Name | Role | Phone | [...] | | | | [address] | [phone] | | | | | [place] | | | | | | [address] | | | | | | [phone] | | | +--------+ + + + [...] | | | | | | [place] [address] | | | | | | [phone] | | | | | | | | +--------+---------+ + + + documented as of this encounter Visit Diagnoses Not on filedocumented in this encounter"
--- OUTSIDE RECORDS SUMMARY | ~2019-09-08 | XMS | Encounter Summary ---
Demographics + + + | Address | [address] | | | [place] [address] | + + + | Home Phone [...] [facility] | | | and Ankitana | + + + | Organization | [facility] | | | and [...] Team Providers + +------+ + | Care Strap Cutter Name | Role | Phone | [...] | | | CENTER [address] | [place], [place] | | | | | [place] | [address] | | | | | [place] | | | | | | [address] | | | | | | [phone] | | | +--------+ + + + [...] W | | | | | | [place], | | | | | | [place] [address] | | | | | | [phone] | | | | | | | [...] + + + | Exam Performed Location: [facility] | MISCELANIOUS | | CT ABDOMEN AND [...] 07/28/2013 9:19 PM PDT Exam Performed Location: [facility] PELVIS WITH CONTRASTCLINICAL INFORMATION:Right | [...] + | MISCELLANEOUS LAB | | | [phone] | + +---------+ + + | MISCELANIOUS LAB | | | [phone] | + +---------+ + + Urinalysis With [...] - 1.030 | [facility] | | | [facility] | | | [facility] | | [...] | | | [facility]ITHEL[facility] | | | [facility] | | [facility] | | | [facility] | | | | | | LABORATORY | | + + + + + + | MUCUS UA | Present (A) | None seen /lpf | [facility] | | | | | | [facility] | | | | | | [...] [facility] | [address] | [place] [address] | | | [facility] | | [...] 6.4 | 4.0 - 11.0 K/uL | [facility] [...] + + + | [facility] | [address] | [place] [address] | | | [facility] | | [...] 88 | 70 - 350 U/L | [facility] [...] + + + + + | [facility] | [address] | [place] [address] | | | [facility] | | | | | LABORATORY [...] + + + | [facility] | [address] | [place] [address] | | | [facility] | | | | | LABORATORY | | | | + + + + + documented in this encounter Visit Diagnoses Not on filedocumented in this encounter"
--- OUTSIDE RECORDS SUMMARY | ~2019-09-08 | XMS | Encounter Summary ---
Demographics + + + | Address | [address] | | | [place] [address] | + + + | Home Phone [...] | [facility] | | | and Ankitana | + + + | Organization | [facility] | | | and Ankitana [...] Team Providers + +------+ + | Care Guard Supervisor Name | Role | Phone | [...] + + | 02/25/ | Telephone | [facility] | Vida Romeo | Hospital Follow-up | | 2014 | | Internal Medicine | [place] | | | | | Hospitalists [address] | | | | [address] [place] | | | | | | [address] | | | | | | [phone] | | | +--------+ + + + [...] | | | | | | [place] [address] | | | | | | [phone] | | | | | | | | +--------+---------+ + + + documented as of this encounter Visit Diagnoses Not on filedocumented in this encounter"
--- OUTSIDE RECORDS SUMMARY | ~2019-09-08 | XMS | Encounter Summary ---
Demographics + + + | Address | [address] | | | [place] [address] | + + + | Home Phone [...] Author | [facility] | | | and Ankitana | + + + | Organization | [facility] [...] Team Providers + +------+ + | Care Marble Cleaner Name | Role | Phone | [...] | | | CENTER [address] | [place], [place] | | | | | [address] | [address] | | | | | [place] | | | | | | [address] | | | | | | [phone] | | | +--------+ + + + [...] | | | | | | [place] [address] | | | | | | [phone] | | | | | | | | +--------+---------+ + + + documented as of this encounter Visit Diagnoses Not on filedocumented in this encounter"
--- OUTSIDE RECORDS SUMMARY | ~2019-09-08 | XMS | Encounter Summary ---
Demographics + + + | Address | [address] | | | [place] [address] | + + + | Home Phone | | + + + | Preferred Language | Unknown | + + + | Marital Status | | + + + | Yazdanism Affiliation | 1041 | + + + | Race | Unknown | + + + | Ethnic Group | Unknown | + + + Author + + + | Author | [facility] | | | and Ankitana | + + + | Organization | [facility] | | [...] Team Providers + +------+ + | Care Handy Man Name | Role | Phone | [...] [place] | | | | | [place] [address] | [address] [place] | | | | | [address] | [place] | | | | | [place] | [address] | | | | | [address] | | | | | | [phone] | | | +--------+ + + + [...] | | | | | | [place] [address] | | | | | | [phone] | | | | | | | | +--------+---------+ + + + documented as of this encounter Visit Diagnoses Not on filedocumented in this encounter"
--- OUTSIDE RECORDS SUMMARY | ~2019-09-08 | XMS | Clinical Summary ---
Demographics + + + | Address | [address] | | | [place] [address] | + + + | Home Phone [...] + | Author | [facility] | | | and Ankitana | + + + | Organization | [facility] | | | and [...] Providers + +------+ + | Care Social Work Faculty Member Name | Role | Phone | + [...] and | | lateral castillo from prior NM, mild destinee infarct ischemia. LARGE | | SEVERE inferior and Lateral NM. 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 Non STEMI | | June [...] + + + + + | H/O NM (myocardial infarction) | 10/06/2011 | + + + + + | Overview: Large Inferior posterior NM March 2012. | | Non STEMI June [...] | | | | | | [place] [address] | | | | | | [phone] | | | | | | | [...] + +--------+--------+ +--------+--------+--------+ | Marker Sheryl Martinez [facility] - | Generi | | GENESSE | | 09/16/ | [id number] | | [id number]: Qty: 2 | c | | BIOMEDICAL | | 2020 | D / / | | on 06/11/2018 by Eleanor, | | | - JALEN | | | | | Hemanth Cooper MD at [facility] | | | | | | | | [facility] | | | | | | | + +--------+--------+ +--------+--------+--------+ | Lens Tecnis Preloaded Pcb 8.5 | Generi | Left: | MORENO | | 04/24/ | [id number] | | - [id number]: Qty: | c | Eye | MEDICAL | | 2018 | 0085 | | 1 on 08/13/2018 by Jose Manuel, | | | [employer] - | | | /[id number] | | Seamus Chance MD at [facility] | | | [place] | | | [id number] | | [facility] | | | | | | / | | CENTER | | | | | | | + +--------+--------+ +--------+--------+--------+ | Lens Tecnis Preloaded Pcb 8.5 | Generi | Right: | MORENO | | 01/31/ | [id number] | | - [id number]: Qty: | c | Eye | MEDICAL | | 2018 | 0085 | | 1 on 09/10/2018 by Jose Manuel, | | | [employer] - | | | /[id number] | | Seamus Chance MD at [facility] | | | [place] | | | [phone] | | [facility] | | | | | [...] E?MRN: | | | | | | [id number] | | | [id number] | | | riteri | | | [...] | | ectomy | | | , [place] | | | with | | | [...] | | | St. | | | [place] | | | y | | | [...] | | | St. | | | [place] | | | y H. | | [...] | | | St. | | | [place] | | | y H. | | [...] | | | St. | | | [place] | | | y H. | | [...] | | | St. | | | [place] | | | y H. | | [...] | | e of | | | [place] | | | | | | shanks [...] | | | St. | | | [place] | | | y H. | | [...] | | e of | | | [place] | | | | | | shanks [...] | | | St. | | | [place] | | | y H. | | [...] | | | N, | | | [employer]LE-C | | | Nurse | | | [...] +--------+ +---------+--------+ | MEDICARE | MEDICA | [id number] | | [phone] | | Medica | | | RE | | 012-Pr | 5 | | re | | | PART A | | esent | | | | | | AND B | | | | | | + +--------+ +--------+ +---------+--------+ | [employer] | MODA | [id number] | 08/25/ | [phone] | | Medica | | MEDICAID HMO | HEALTH | | 2019-P | 1 | | id | | | MDCD | | resent | | | | | | HMO [place] | | | | | | + +--------+ +--------+ +---------+--------+ | DEPARTMENT OF | [employer] | [id number] | 06/06/20 | | | Indemn | [...] | Self | 07/[birth year]/ | | [address] | | | al/Fam | | 1955 | [phone] | [place] [address] | | | daljit | | | 6 (Home) | | + +--------+ +--------+ + + | [facility] | 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/ | | [address] | | | ate | | 1902 | [phone] | [place] [address] | | | | | | 9 (Home) | | + +--------+ +--------+ + + Advance Directives + + + + + | Type | Date Recorded | Patient | Explanation | | | | Hand Stitcher | | + + + + + | Power of | | | | | Pharmacist | | | | + + + [...]
--- OUTSIDE RECORDS SUMMARY | ~2019-09-08 | XMS | Encounter Summary ---
Demographics + + + | Address | [address] | | | [place] [address] | + + + | Home Phone | | + + + | Preferred Language | Unknown | + + + | Marital Status | | + + + | Pentecostal Affiliation | [id number] | + + + | Race | Unknown | + + + | Ethnic Group | Unknown | + + + Author + + + | Author | [facility] | | | and Ankitana | + + + | Organization | [facility] | | [...] Providers + +------+ + | Care Public Address System Mechanic Name | Role | Phone | [...] + + | 11/25/ | Office | [facility] | Carol, | Hypertension, | | 2019 | Visit | CARDIOLOGY [address] | SALVATORE Moreno [address] | unspecified type | | | | [place], | [place], | (Primary Dx); | | | | [place] [address] | [place] [address] | Ischemic | | | | [phone] | [phone] | cardiomyopathy; | | | | | [...] encounter Patient Instructions Patient Instructions Dayana Chan, Soccer Referee - 11/25/2018 10:45 AM PST 1. Start taking lisinopril 20 mg twice daily by mouth to help with your blood pressure . 2. You will check your blood pressure and pulse twice daily for two weeks and return the lo g to our office. 3. You will need to go to get your labs (BMP) drawn at [facility] . 4. Please follow up in [...] sodium in extra because of eating out costa rican food for the last weeks Her energy [...] chronic, stage II (GFR 60-89 ml/min) H/O [place] (myocardial infarction) Hepatitis C Risk factors for [...] Abnormal ECG Confirmed by MARIANGEL WALTON MD ([id number]) on 10/01/2018 12:13:49 PM LAB RESULTS reviewed during visit today primarily from [facility]: LIPID No results found for: [...] arrest post unknown stenting in 2011 at [facility] in [place] B. Echocardiogram 2D , M-mode, Doppler and [...] the inferior and lateral castillo from prior [place], mild destinee infarct ischemia. LARGE SEVERE inferior and Lateral [place]. By Shad Schuler MD G. Left heart [...] unction. Trace TR, pulmonic valve normal Trace SD, visible portions of ascending aorta and a [...] II- Symptoms with moderate exertion of the [place] Heart Association functional class. 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 Discussed the results of the echocardiogram. She has a appointment with [facility] in a few weeks. [...] this chart may have been created with [employer] voice recognition software. Occasi onal wrong-word [...] [place], | | | | | | [place] [address] | | | | | | [phone] | | | | | | | [...] of unspecified type of | | vessel, [place] or graft | + + documented in this encounter
--- OUTSIDE RECORDS SUMMARY | ~2019-09-08 | XMS | Encounter Summary ---
Demographics + + + | Address | [address] | | | [place] [address] | + + + | Home Phone [...] + | Author | [facility] | | | and Ankitana | + + + | Organization | [facility] [...] Providers + +------+ + | Care Head Cd Reactor Operator Name | Role | Phone | + +------+ + | [facility] | PCP | | + +------+ [...] | | | | | Cardiomyopat | [place] | [address] | | | | | hy (HCC) | [address] | [address] | | | | | Procedures | [address] | [place] | | | | | ECHO | [place], | [address] | | | | | Complete | [place] | Phone: | | | | | | [address] | [phone] | | | | | | | Fax: | | | | | | | [phone] | +--------+--------+ + + + + Reason [...] | | | | | Cardiomyopat | [place] | [address] | | | | | hy (HCC) | [address] | [address] | | | | | Procedures | [address] | [place] | | | | | ECHO | [place], | [address] | | | | | Complete | [place] | Phone: | | | | | | [address] | [phone] | | | | | | | Fax: | | | | | | | [phone] | +--------+--------+ + + + + Encounter Details +--------+ + + + + | Date | Type | Department | Care Team | Description | +--------+ + + + + | 01/13/ | Hospital | [facility] | Mani Thompson MD | Cardiomyopathy (HCC) | | 2013 | Encounter | HEART CARDIOVASCULAR | [address] [place] | | | | | IMAGING CENTER | [address] | | | | | [facility] | [place] [address] | | | | | [address] | [address] | | | | | [place] | | | | | | [address] | | | | | | [phone] | | | +--------+ + + + [...] | | | | | | vessel, [place] or | | | | | | [...] | | | | | | [place] [address] | | | | | | [phone] | | | | | | | [...] MARIE PICHARDO | | | Date: 01/13/2014MRN: [id number] Patient Location: [place] | | | [facility] Institute[facility]OB[facility] 1955 Age: 58 yrs | | | Gender: FemaleHeight: 68 in | | | Weight: 156 lb BSA: 1.8 meters2 | | | HR: 64 | | | Rhythm: SinusHistory: Coronary artery disease with prior | | | infarction and cardiac arrest,prior echo 05/2013 shows inferior GA, | | | EF= 40% Reason For [...] | | | Zoila Leehocardiographer: Edson Cárdenas [id number]: | | |Great Vessels: | | |The [...] | |Referring Physician: SALVATORE Maldonado | | |Crossband Layer: Edson Jimenez | | |[id number]: | | | | | + + [...] | | prior echo 05/2013 shows inferior GA, EF= 40% | | | | Reason [...] | Referring Physician: SALVATORE Maldonado | | Crossband Layer: Edson Jimenez | | [id number]: | + + + + | Transcriptions | + + | Omi White - 01/14/2014 12:00 AM PDT | + + + +---------+ + + | Performing | Address | City/State/Zipcode | Phone Number | | Organization | | | | + +---------+ + + | MISCELLANEOUS LAB | | | [phone] | + +---------+ + + | MISCELANIOUS LAB | | | [phone] | + +---------+ + + documented in this encounter Visit Diagnoses + + | Diagnosis | + + | Cardiomyopathy (HCC) Other primary cardiomyopathies | + + documented in this encounter"
--- OUTSIDE RECORDS SUMMARY | ~2019-09-08 | XMS | Encounter Summary ---
Demographics + + + | Address | [address] | | | [place] [address] | + + + | Home Phone [...] + | Author | [facility] | | | and Ankitana | + + + | Organization | [facility] | | | and [...] Providers + +------+ + | Care Junior Network Engineer Name | Role | Phone | [...] L, Technologist | | | | | [place] [address] | | | | | | [facility] | | | | | | [place] | | | | | | [address] | | | | | | [phone] | | | +--------+ + + + [...] | | | | | | [place] [address] | | | | | | [phone] | | | | | | | [...]
--- OUTSIDE RECORDS SUMMARY | ~2019-09-08 | XMS | Encounter Summary ---
Demographics + + + | Address | [address] | | | [place] [address] | + + + | Home Phone [...] + | Author | [facility] | | | and Ankitana | + + + | Organization | [facility] [...] Team Providers + +------+ + | Care Calender Runner Name | Role | Phone | + [...] L, Technologist | | | | | [place] [address] | | | | | | [facility] | | | | | | [place] | | | | | | [address] | | | | | | [phone] | | | +--------+ + + + [...] | | | | | | [place] [address] | | | | | | [phone] | | | | | | | [...]
--- OUTSIDE RECORDS SUMMARY | ~2019-09-08 | XMS | Encounter Summary ---
Demographics + + + | Address | [address] | | | [place] [address] | + + + | Home Phone [...] + | Author | [facility] | | | and Ankitana | + + + | Organization | [facility] [...] Team Providers + +------+ + | Care Information Technology Account Manager Name | Role | Phone | + +------+ + PCP | Unavailable | + +------+ + Encounter Details +--------+ + + + + | Date | Type | Department | Care Team | Description | +--------+ + + + + | 02/19/ | Hospital | [facility] | Jesse Herr MD | | | 2006 | Encounter | FAMILY EMERGENCY | [address] | | | | | CENTER [address] | [place] | | | | | [place] | [address] | | | | | [place] | | | | | | [address] | | | | | | [phone] | | | +--------+ + + + [...] | | | | | | [place] [address] | | | | | | [phone] | | | | | | | | +--------+---------+ + + + documented as of this encounter Visit Diagnoses Not on filedocumented in this encounter"
--- OUTSIDE RECORDS SUMMARY | ~2019-09-08 | XMS | Encounter Summary ---
Demographics + + + | Address | [address] | | | [place] [address] | + + + | Home Phone [...] | Author | [facility] | | | and Ankitana | + + + | Organization | [facility] | | | and Ankitana | [...] Team Providers + +------+ + | Care Hospice Registered Nurse Name | Role | Phone | + +------+ + PCP | Unavailable | + +------+ + Encounter Details +--------+ + + + + | Date | Type | Department | Care Team | Description | +--------+ + + + + | 08/10/ | Hospital | [facility] | [place], | | | 2010 | Encounter | [facility] | [address] | | | | | EMERGENCY CENTER | [place] [address] | | | | | [address] | [phone] | | | | | [place] | | | | | | [address] | | | | | | [phone] | | | +--------+ + + + [...] W | | | | | | [place], | | | | | | [place] [address] | | | | | | [phone] | | | | | | | | +--------+---------+ + + + documented as of this encounter Visit Diagnoses Not on filedocumented in this encounter"
--- OUTSIDE RECORDS SUMMARY | ~2019-09-08 | XMS | Encounter Summary ---
Demographics + + + | Address | [address] | | | [place] [address] | + + + | Home Phone [...] + | Author | [facility] | | | and Ankitana | + + + | Organization | [facility] [...] Team Providers + +------+ + | Care Teacher Dramatics Name | Role | Phone | + [...] | [address] | [place] [address] | (Primary Dx) | | | | [place] | [phone] | | | | | [address] | | | | | | [phone] | | | +--------+---------+ + + + [...] at home. Do n tlift anything heavier [id number]. Your healthcare provider may give you a [...] the hospital, begin with short wal ks ([id number]) at home. Go a little longer each [...] urinating Any unusual bleeding Date Last Reviewed: 07/06/201619996956-7127 [employer] [place] [address]. All [facility] reserved. This information is not intended as a substitute for professional medical care. Always follow your healthcare professional's instructions. documented in this encounter Progress Notes Jayne Rayo ARNP - 06/29/2018 11:30 AM PDTFormatting of this note might be differ ent from the original. [facility] Post-Operative Visit Pt. Name/Age/: Smitha Fletcher 62 y.o. 1955 Med. Record Number: [id number] Date of Service: 06/29/2018 Primary procedure: 1. [...] a new PCP in her local area ([place], [place]) SUBJECTIVE: The chart and medications were [...] condition Electronically signed by: SALVATORE Restrepo, SHANA, DRIVER HELPER-C 06/29/2018 10:18 Jayne Rayo DNP, DRIVER HELPER-C [facility] [address] [place] [address] Portions of this chart may have been created with [employer] voice recognition software. Occasi onal wrong-word or [...] | | | | | | [place] [address] | | | | | | [phone] | | | | | | | | +--------+---------+ + + + documented as of this encounter Visit Diagnoses + + | Diagnosis | + + | Status post three vessel coronary artery bypass - Primary Postsurgical aortocoronary | | bypass status | + + documented in this encounter"
--- OUTSIDE RECORDS SUMMARY | ~2019-09-08 | XMS | Encounter Summary ---
Demographics + + + | Address | [address] | | | [place] [address] | + + + | Home Phone [...] Author | [facility] | | | and Ankitana | + + + | Organization | [facility] | [...] | + + +---------+ + | Becky Curz | ECON | Unknown | | + + +---------+ + Care Team Providers + +------+ + | Care Concrete Inspector Name | Role | Phone | [...] [address] | | | | | [address] [address] | [facility] | | | | | [facility] | [place] [address] | | | | | [place] | [phone] | | | | | [address] | | | | | | [phone] | | | +--------+ + + + [...] | | | | | | [place] [address] | | | | | | [phone] | | | | | | | | +--------+---------+ + + + documented as of this encounter Visit Diagnoses Not on filedocumented in this encounter"
--- OUTSIDE RECORDS SUMMARY | ~2019-09-08 | XMS | Encounter Summary ---
Demographics + + + | Address | [address] | | | [place] [address] | + + + | Home Phone [...] + | Author | [facility] | | | and Ankitana | + + + | Organization | [facility] | [...] Team Providers + +------+ + | Care Obgyn Hospitalist Physician Name | Role | Phone | [...] [address] | | | | | [place] [address] | [facility] | | | | | [facility] | [place] [address] | | | | | [place] | [phone] | | | | | [address] | | | | | | [phone] | | | +--------+ + + + [...] W | | | | | | [place], | | | | | | [place] [address] | | | | | | [phone] | | | | | | | [...] + + + | [facility] | [address] | [place] [address] | | | [facility] | | | | | LABORATORY | | | | + + + + + | [facility] | | | | | [facility] | | | | | LABORATORY | | | | + + + + + Historical Imaging Result (01/22/2011 1:53 PM PDT) + + | Specimen | + + | | + + + + + | Narrative | Performed At | + + + | Exam Performed Location: [facility] | MISCELANIOUS | | PA AND LATERAL [...] 07/29/2013 8:42 PM PDT Exam Performed Location: [facility] CHESTCLINICAL INFORMATION:Vomiting with shortness | [...] + | MISCELLANEOUS LAB | | | [phone] | + +---------+ + + | MISCELANIOUS LAB | | | [phone] | + +---------+ + + Drugs of [...] + + + | [facility] | [address] | [place] [address] | | | [facility] | | | | | LABORATORY [...] + | [facility] | [address] | [place] [address] | | | [facility] | | [...] + + + | [facility] | [address] [facility] | [place] [address] | | | [facility] | | [...] + + + | [facility] | [address] | [place] [address] | | | [facility] | | [...] + + + | [facility] | [address] | [place] [address] | | | [facility] | | [...] Impaired | 65 - 99 mg/dL | [facility] | | | | fasting glucose: 100 [...] + + | [facility] | [address] [facility] | [place] [address] | | | [facility] | | | | | LABORATORY | | | | + + + + + | [facility] | | | | | [facility] | | | | | [...] + + + | [facility] | [address] | [place] [address] | | | [facility] | | [...] + + | [facility] | [address] [facility] | [place] [address] | | | [facility] | | [...] + + + | [facility] | [address] [facility] | [place] [address] | | | [facility] | | [...]
--- OUTSIDE RECORDS SUMMARY | ~2019-09-08 | XMS | Encounter Summary ---
Demographics + + + | Address | [address] | | | [place] [address] | + + + | Home Phone [...] Author | [facility] | | | and Ankitana | + + + | Organization | [facility] | | | and [...] Team Providers + +------+ + | Care Gm Video Name | Role | Phone | + [...] | | | | [address] | [phone] | | | | | [place] | | | | | | [address] | | | | | | [phone] | | | +--------+ + + + [...] | | | | | | [place] [address] | | | | | | [phone] | | | | | | | | +--------+---------+ + + + documented as of this encounter Visit Diagnoses Not on filedocumented in this encounter"
--- OUTSIDE RECORDS SUMMARY | ~2019-09-08 | XMS | Encounter Summary ---
Demographics + + + | Address | [address] | | | [place] [address] | + + + | Home Phone [...] | Author | [facility] | | | and Ankitana | + + + | Organization | [facility] | [...] Providers + +------+ + | Care Community Health Outreach Worker Name | Role | Phone | [...] | | | [place] | [address] | [address] | | | | | CABG | CONF[place]ATED | Kimani [place], | | | | | Procedures | WAY | [place] | | | | | LOADER OPERATOR/GROUND LEADER - NO YH | [place], | [address] | | | | | COVERAGE | [place] [address] | Phone: | | | | | EXCEPT IN | Phone: | [phone] | | | | | [facility]IR [facility] | [phone] | Fax: | | | | | | Fax: | [phone] | | | | | | [phone] | | +--------+--------+ + + + + Encounter Details +--------+---------+ + + + | Date | Type | Department | Care Team | Description | +--------+---------+ + + + | 10/01/ | Office | [facility] | Mariangel Siddiqi, | Chest pain syndrome | | 2018 | Visit | CARDIOLOGY [address] | (Primary Dx); [facility] | | | | [place], | [place], | (arteriosclerotic | | | | [place] [address] | [place] [address] | heart disease); | | | | [phone] | [phone] | Mixed hyperlipidemia | | | | [...] arrest when she was at home in [facility]. Her daughter found her and called the clinical care leader. It took them about ten mintues for her to revive. She was doing prett y well between 2011 until recent when she went to [place] in [place] on 06/08/18 because she was not feeling [...] Cor Angio; Surgeon: Shad Schuler MD; Location: [facility] CV LAB CARDIAC CATHERIZATION Right 06/09/2018 Procedure: CV LHC; Surgeon: Shad Schuler MD; Location: [facility] CV LAB CARDIAC CATHERIZATION Right 06/09/2018 Procedure: CV LV; Surgeon: Shad Schuler MD; Location: [facility] CV LAB CATARACT REMOVAL Left 08/13/2018 Procedure: [...] JU; Surgeon: Hemanth Webster MD; Loc ation: [facility] MAIN OR HYSTERECTOMY 1995 Family History Problem [...] She lives with her daughter, Miriam, in [place]. She is on disability. She is a [...] in 2011 at [facility] in [place] B. Echocardiogram 2D , M-mode, Doppler and [...] i nferior and lateral castillo from prior CT, mild destinee infarct ischemia. LARGE SEVERE inferior a nd Lateral CT. By Shad Schuler MD G. Left heart cath on 06/09/18 shows, severely calcified coronaries with severe three-vessel CAD including 60% distal left main, 90% ostial circumflex, 99% proximal circumflex, obtuse marginal 4 and 5 disease, ostial and proximal 40% LAD, 95% ostial septal solar installer, 70% mid and distal LAD, 100% mid [...] Tr lolis TR, pulmonic valve normal Trace [place], visible portions of ascending aorta and arch [...] She is in a class II of [place] Heart Association functional class. There is no [...] edited this note. China De La Cruz, Hospitality Director 10/01/2018 I, Mariangel Siddiqi MD, personally performed the services described in this documentation, as scribed in my presence and it is both accurate and complete. China De La Cruz Hospitality Director 10:48 Electronically signed by: Mariangel Siddiqi MD [facility] 10/01/2018 Portions of this chart may have been created with [employer] voice recognition software. Occasi onal wrong-word or [...] [place], | | | | | | [place] [address] | | | | | | [phone] | | | | | | | [...] MD | | | | | | ([id number]) on 10/01/2018 | | | | | [...] of unspecified type of | | vessel, [place] or graft | + + | Mixed hyperlipidemia | + + documented in this encounter
--- OUTSIDE RECORDS SUMMARY | ~2019-09-08 | XMS | Encounter Summary ---
Demographics + + + | Address | [address] | | | [place] [address] | + + + | Home Phone [...] + | Author | [facility] | | | and Ankitana | + + + | Organization | [facility] | | | and Ankitana [...] Team Providers + +------+ + | Care Buffer Copper Name | Role | Phone | + [...] | SR | | | | | [phone] | | | +--------+ + + + [...] [place], | | | | | | [place] [address] | | | | | | [phone] | | | | | | | | +--------+---------+ + + + documented as of this encounter Visit Diagnoses Not on filedocumented in this encounter
--- OUTSIDE RECORDS SUMMARY | ~2019-09-08 | XMS | Encounter Summary ---
Demographics + + + | Address | [address] | | | [place] [address] | + + + | Home Phone [...] [facility] | | | and Ankitana | + + + | Organization | [facility] | | [...] Providers + +------+ + | Care Customer Retention Representative Name | Role | Phone | + +------+ + | [place] [facility] | PCP | | + [...] | (Primary Dx) | | | | [address] | [facility] | | | | | [facility] | [place] [address] | | | | | [place], [place] | [phone] | | | | | [address] | | | | | | [phone] | | | +--------+ + + + [...] cannot be sent through Care Everywhere.DENTAL ABSCESS (DIVEHI)documented in this encounter Medications at Time of [...] | | | | | | vessel, little shell tribe or | | | | | | [...] | | | | | | [place] [address] | | | | | | [phone] | | | | | | | [...] TRACKING (3 MO.) Visit Date Location | [facility] | | Type Diagnoses | | | -------- ---- | | | 04/03/2014 18:34 [facility] | | | Problem; VISIT COUNT (1 YR.) Visits Medicaid [place] Dx | | | Location ------ --------- 2 0 | | | 5 0 | | | [facility] 7 0 Total | | | Note: Visits indicate total known visits. Medicaid [place] Dx are the | | | number of primary diagnoses on the [facility] non-emergent dx list. | | | | | | --- Care Recommendation: Care at [facility] | | | Past Medical [...]
--- OUTSIDE RECORDS SUMMARY | ~2019-09-08 | XMS | Encounter Summary ---
Demographics + + + | Address | [address] | | | [place] [address] | + + + | Home Phone [...] Author | [facility] | | | and Ankitana | + + + | Organization | [facility] [...] Team Providers + +------+ + | Care Tour Conductor Name | Role | Phone | + [...] | | | CENTER [address] | [place], [place] | | | | | [address] | [address] | | | | | [place] | | | | | | [address] | | | | | | [phone] | | | +--------+ + + + [...] | | | | | | [place] [address] | | | | | | [phone] | | | | | | | | +--------+---------+ + + + documented as of this encounter Visit Diagnoses Not on filedocumented in this encounter"
--- OUTSIDE RECORDS SUMMARY | ~2019-09-08 | XMS | Encounter Summary ---
Demographics + + + | Address | [address] | | | [place] [address] | + + + | Home Phone [...] | Author | [facility] | | | and Ankitana | + + + | Organization | [facility] | | | [...] Team Providers + +------+ + | Care Drum Handler Name | Role | Phone | + [...] | | | EMERGENCY CENTER | AVE [place], [place] | | | | | [address] | [address] | | | | | [place], [place] | | | | | | [address] | | | | | | [phone] | | | +--------+ + + + [...] through Care Everywhere.ABSCESS, ANTIBI OTIC TREATMENT ONLY (ALGERIAN)documented in this encounter Medications at Time of [...] W | | | | | | [place], | | | | | | [place] [address] | | | | | | [phone] | | | | | | | [...] + | [facility] | [address] | [place] [address] | | | [facility] | | [...] | | | | | Intramuscular, ONCE, [facility] 12/26/16 | | | | | | [...] | | | | | Oral, ONCE, [facility] 12/26/16 at 0450, | | AM PDT [...] PDT | | | | | ONCE, [facility] 12/26/16 at 0450, For 1 | | [...]
--- OUTSIDE RECORDS SUMMARY | ~2019-09-08 | XMS | Encounter Summary ---
Demographics + + + | Address | [address] | | | [place] [address] | + + + | Home Phone [...] | [facility] | | | and Ankitana | + + + | Organization | [facility] | | | and [...] Team Providers + +------+ + | Care Mingle Operator Name | Role | Phone | [...] | | | | | [place] | [address] | | | | | [place] | | | | | | [address] | | | | | | [phone] | | | +--------+ + + + [...] | | | | | | [place] [address] | | | | | | [phone] | | | | | | | | +--------+---------+ + + + documented as of this encounter Visit Diagnoses Not on filedocumented in this encounter"
--- OUTSIDE RECORDS SUMMARY | ~2019-09-08 | XMS | Encounter Summary ---
Demographics + + + | Address | [address] | | | [place] [address] | + + + | Home Phone [...] + | Author | [facility] | | | and Ankitana | + + + | Organization | [facility] | | [...] Team Providers + +------+ + | Care Supervisor Color Making Name | Role | Phone | + [...] | | | CENTER [address] | [place], [place] | | | | | [address] | [address] | | | | | [place] | | | | | | [address] | | | | | | [phone] | | | +--------+ + + + [...] | | | | | | [place] [address] | | | | | | [phone] | | | | | | | | +--------+---------+ + + + documented as of this encounter Visit Diagnoses Not on filedocumented in this encounter"
--- OUTSIDE RECORDS SUMMARY | ~2019-09-08 | XMS | Encounter Summary ---
Demographics + + + | Address | [address] | | | [place] [address] | + + + | Home Phone [...] + | Author | [facility] | | | and Ankitana | + + + | Organization | [facility] | [...] Providers + +------+ + | Care Senior Data Warehouse Developer Name | Role | Phone | + +------+ + | Yolanda Lee | PCP | | + +------+ + Encounter Details +--------+ + + + + | Date | Type | Department | Care Team | Description | +--------+ + + + + | 03/06/ | Hospital | [facility] | Jesse Siddiqi MD | Cellulitis and | | 2015 - | Encounter | HEART MED CTR OP | [address], | abscess of hand, | | | | INFUSION [address] | 9th floor [place], | except fingers and | | 03/08/ | | [place], [place] | [place] [address] | thumb; Bacteremia | | 2015 | | [address] | [phone] | due to Streptococcus | | | | [phone] | | / Sepsis | +--------+ + [...] | | | | | | [place] [address] | | | | | | [phone] | | | | | | | [...]
--- OUTSIDE RECORDS SUMMARY | ~2019-09-08 | XMS | Encounter Summary ---
Demographics + + + | Address | [address] | | | [place] [address] | + + + | Home Phone [...] Author | [facility] | | | and Ankitana | + + + | Organization | [facility] | | | and Ankitana | [...] Team Providers + +------+ + | Care Control Room Tender Name | Role | Phone | [...] | | | CENTER [address] | [place], [place] | | | | | [address] | [address] | | | | | [place] | | | | | | [address] | | | | | | [phone] | | | +--------+ + + + [...] | | | | | | [place] [address] | | | | | | [phone] | | | | | | | | +--------+---------+ + + + documented as of this encounter Visit Diagnoses Not on filedocumented in this encounter"
--- OUTSIDE RECORDS SUMMARY | ~2019-09-08 | XMS | Encounter Summary ---
Demographics + + + | Address | [address] | | | [place] [address] | + + + | Home Phone [...] | [facility] | | | and Ankitana | + + + | Organization | [facility] | | | and [...] Team Providers + +------+ + | Care Orthophoto Tech/Draftsman Name | Role | Phone | + +------+ + | Yolanda Lee | PCP | | + +------+ + Encounter Details +--------+ + + + + | Date | Type | Department | Care Team | Description | +--------+ + + + + | 03/01/ | Hospital | [facility] | Jesse Siddiqi MD | Cellulitis and | | 2015 | Encounter | HEART MED CTR OP | [address], | abscess of hand, | | | | INFUSION [address] | 9th floor [place], | except fingers and | | | | [place], [place] | [place] [address] | thumb; Bacteremia | | | | [address] | [phone] | due to Streptococcus | | | | [phone] | | / Sepsis | +--------+ + [...] | | | | | | [place] [address] | | | | | | [phone] | | | | | | | [...]
--- OUTSIDE RECORDS SUMMARY | ~2019-09-08 | XMS | Encounter Summary ---
Demographics + + + | Address | [address] | | | [place] [address] | + + + | Home Phone [...] | Author | [facility] | | | and Ankitana | + + + | Organization | [facility] | [...] Team Providers + +------+ + | Care Ramp Jockey Name | Role | Phone | + +------+ + | [facility] | PCP | | + +------+ + [...] | | | | | Cardiomyopat | [place] | [address] | | | | | hy (HCC) | [address] | [address] | | | | | Procedures | [address] | [place] | | | | | ECHO | [place], | [address] | | | | | Complete | [place] | Phone: | | | | | | [address] | [phone] | | | | | | | Fax: | | | | | | | [phone] | +--------+--------+ + + + + Reason [...] | | | | | Cardiomyopat | [place] | [address] | | | | | hy (HCC) | [address] | [address] | | | | | Procedures | [address] | [place] | | | | | ECHO | [place], | [address] | | | | | Complete | [place] | Phone: | | | | | | [address] | [phone] | | | | | | | Fax: | | | | | | | [phone] | +--------+--------+ + + + + Encounter Details +--------+ + + + + | Date | Type | Department | Care Team | Description | +--------+ + + + + | 01/13/ | Hospital | [facility] | Mani Thompson MD | Cardiomyopathy (HCC) | | 2013 | Encounter | HEART CARDIOVASCULAR | [address] [place] | | | | | IMAGING CENTER | [address] | | | | | [facility] | [place] | | | | | [address] | [address] | | | | | [place] | | | | | | [address] | | | | | | [phone] | | | +--------+ + + + [...] | | | | | | vessel, [place] | | | | | | [...] | | | | | | [place] [address] | | | | | | [phone] | | | | | | | [...] MARIE PICHARDO | | | Date: 01/13/2014MRN: [id number] Patient Location: [place] | | | [facility] 1955 Age: 58 yrs | | | Gender: FemaleHeight: 68 in | | | Weight: 156 lb BSA: 1.8 meters2 | | | HR: 64 | | | Rhythm: SinusHistory: Coronary artery disease with prior | | | infarction and cardiac arrest,prior echo 05/2013 shows inferior DC, | | | EF= 40% Reason For [...] | | | Zoila Leehocardiographer: Edson Cárdenas [id number]: | | |Great Vessels: | | |The [...] | |Referring Physician: SALVATORE Maldonado | | |Machine Gunner: Edson Jimenez | | |[id number]: | | | | | + + -+ + + | Procedure Note | + + | Tim, Rad Results In - 01/14/2014 8:09 AM PDT | | Adult | | Echo | | Report | | | | Name: ANNE MARIE PICHARDO Date: 01/13/2014 | | Patient Location: [facility] | | : 1955 Age: 58 yrs Gender: Female | | Height: 68 in Weight: 156 lb BSA: 1.8 meters2 | | HR: 64 Rhythm: Sinus | | History: Coronary artery disease with prior infarction and cardiac arrest, | | prior echo 05/2013 shows inferior DC, EF= 40% | | | | Reason [...] | Referring Physician: SALVATORE Maldonado | | Machine Gunner: Edson Jimenez | | [id number]: | + + + + | Transcriptions | + + | Omi White - 01/14/2014 12:00 AM PDT | + + + +---------+ + + | Performing | Address | City/State/Zipcode | Phone Number | | Organization | | | | + +---------+ + + | [facility] | | | [phone] | + +---------+ + + | [facility]ISC[facility] | | | [phone] | + +---------+ + + documented in this encounter Visit Diagnoses + + | Diagnosis | + + | Cardiomyopathy (HCC) Other primary cardiomyopathies | + + documented in this encounter"
--- OUTSIDE RECORDS SUMMARY | ~2019-09-08 | XMS | Encounter Summary ---
Demographics + + + | Address | [address] | | | [place] [address] | + + + | Home Phone [...] | [facility] | | | and Ankitana | + + + | Organization | [facility] | | | and Ankitana [...] Team Providers + +------+ + | Care Conveyor Operator Name | Role | Phone | + +------+ + | Yolanda Lee | PCP | | + +------+ + Encounter Details +--------+ + + + + | Date | Type | Department | Care Team | Description | +--------+ + + + + | 02/28/ | Hospital | [facility] | Jesse Siddiqi MD | Cellulitis and | | 2015 | Encounter | HEART MED CTR OP | [address], | abscess of hand, | | | | INFUSION [address] | 9th floor [place], | except fingers and | | | | Ave [place], [place] | [place] [address] | thumb; Bacteremia | | | | [address] | [phone] | due to Streptococcus | | | | [phone] | | / Sepsis | +--------+ + [...] | | | | | | [place] [address] | | | | | | [phone] | | | | | | | [...]
--- OUTSIDE RECORDS SUMMARY | ~2019-09-08 | XMS | Encounter Summary ---
Demographics + + + | Address | [address] | | | [place] [address] | + + + | Home Phone [...] Author | [facility] | | | and Ankitana | + + + | Organization | [facility] | [...] Providers + +------+ + | Care Technical Operations Specialist Name | Role | Phone | + +------+ + | [place], [facility] | PCP | | + +------+ + Encounter Details +--------+ + + + + | Date | Type | Department | Care Team | Description | +--------+ + + + + | 05/12/ | Orders Only | [facility] | Mani Schneider MD | | | 2011 | | CARDIOLOGY [place] | [address] | | | | | [address] | [address] | | | | | [address] [place] | [place] | | | | | [address] | [address] | | | | | [phone] | | | +--------+ + + + [...] W | | | | | | [place], | | | | | | [place] [address] | | | | | | [phone] | | | | | | | [...]
--- OUTSIDE RECORDS SUMMARY | ~2019-09-08 | XMS | Encounter Summary ---
Demographics + + + | Address | [address] | | | [place] [address] | + + + | Home Phone [...] Author | [facility] | | | and Ankitana | + + + | Organization | [facility] [...] Providers + +------+ + | Care Sales Representative Sales Manager Name | Role | Phone [...] | [address] | [place] [address] | | | | | [place], [place] | [phone] | | | | | [address] | | | | | | [phone] | | | +--------+ + + + [...] [place], | | | | | | [place] [address] | | | | | | [phone] | | | | | | | | +--------+---------+ + + + documented as of this encounter Visit Diagnoses Not on filedocumented in this encounter"
--- OUTSIDE RECORDS SUMMARY | ~2019-09-08 | XMS | Encounter Summary ---
Demographics + + + | Address | [address] | | | [place] [address] | + + + | Home Phone [...] + | Author | [facility] | | | and Ankitana | + + + | Organization | [facility] | | | and [...] Team Providers + +------+ + | Care Marketing/Sales Person Name | Role | Phone | + [...] | | | | [address] | [phone] | | | | | [place] | | | | | | [address] | | | | | | [phone] | | | +--------+ + + + [...] | | | | | | [place] [address] | | | | | | [phone] | | | | | | | | +--------+---------+ + + + documented as of this encounter Visit Diagnoses Not on filedocumented in this encounter"
--- OUTSIDE RECORDS SUMMARY | ~2019-09-08 | XMS | Encounter Summary ---
Demographics + + + | Address | [address] | | | [place] [address] | + + + | Home Phone [...] | [facility] | | | and Ankitana | + + + | Organization | [facility] | | [...] Team Providers + +------+ + | Care Water Meter Mechanic Name | Role | Phone | [...] [address] | | | | | [place] [address] | [facility] | | | | | [facility] | [place] [address] | | | | | [place] | [phone] | | | | | [address] | | | | | | [phone] | | | +--------+ + + + [...] | | | | | | [place] [address] | | | | | | [phone] | | | | | | | | +--------+---------+ + + + documented as of this encounter Visit Diagnoses Not on filedocumented in this encounter"
--- OUTSIDE RECORDS SUMMARY | ~2019-09-08 | XMS | Encounter Summary ---
Demographics + + + | Address | [address] | | | [place] [address] | + + + | Home Phone [...] Author | [facility] | | | and Ankitana | + + + | Organization | [facility] [...] Team Providers + +------+ + | Care Rotary Peel Oven Tender Name | Role | Phone | [...] [address] | | | | | [place] [address] | [facility] | | | | | [facility] | [place] [address] | | | | | [place] | [phone] | | | | | [address] | | | | | | [phone] | | | +--------+ + + + [...] W | | | | | | [place], | | | | | | [place] [address] | | | | | | [phone] | | | | | | | | +--------+---------+ + + + documented as of this encounter Visit Diagnoses Not on filedocumented in this encounter"
--- OUTSIDE RECORDS SUMMARY | ~2019-09-08 | XMS | Encounter Summary ---
Demographics + + + | Address | [address] | | | [place] [address] | + + + | Home Phone [...] Author | [facility] | | | and Ankitana | + + + | Organization | [facility] | [...] Team Providers + +------+ + | Care Regulatory Submissions Specialist Name | Role | Phone | [...] [address] | | | | | [place], | [place], | | | | | [place] [address] | [place] [address] | | | | | [phone] | [phone] | | | | | | | [...] | | | | | | [place] [address] | | | | | | [phone] | | | | | | | [...]
--- OUTSIDE RECORDS SUMMARY | ~2019-09-08 | XMS | Encounter Summary ---
Demographics + + + | Address | [address] | | | [place] [address] | + + + | Home Phone [...] Team Providers + +------+ + | Care Guest Services Associate Name | Role | Phone | + +------+ + | [place] | PCP | | + +------+ [...] [place] | | | | | [address] | [address] | | | | | [phone] | | | +--------+ + + + [...] W | | | | | | [place], | | | | | | [place] [address] | | | | | | [phone] | | | | | | | [...]
--- OUTSIDE RECORDS SUMMARY | ~2019-09-08 | XMS | Encounter Summary ---
Demographics + + + | Address | [address] | | | [place] [address] | + + + | Home Phone [...] Author | [facility] | | | and Ankitana | + + + | Organization | [facility] [...] Providers + +------+ + | Care Garment Presser Name | Role | Phone | + +------+ + | Yolanda Lee | PCP | | + +------+ + Encounter Details +--------+ + + + + | Date | Type | Department | Care Team | Description | +--------+ + + + + | 03/02/ | Hospital | [facility] | Jesse Siddiqi MD | Cellulitis and | | 2015 | Encounter | HEART MED CTR OP | [address], | abscess of hand, | | | | INFUSION [address] | 9th floor [place], | except fingers and | | | | Ave [place], [place] | [place] [address] | thumb; Bacteremia | | | | [address] | [phone] | due to Streptococcus | | | | [phone] | | / Sepsis | +--------+ + [...] | | | | | | [place] [address] | | | | | | [phone] | | | | | | | [...]
--- OUTSIDE RECORDS SUMMARY | ~2019-09-08 | XMS | Encounter Summary ---
Demographics + + + | Address | [address] | | | [place] [address] | + + + | Home Phone [...] | Author | [facility] | | | and Ankitana | + + + | Organization | [facility] | | [...] Team Providers + +------+ + | Care Felt Hat Flanging Operator Name | Role | Phone | [...] | | FAMILY EMERGENCY | [address] [facility] | unspecified location | | | | CENTER [address] | [place] [address] | (Primary Dx); | | | | [facility] | [phone] | Nausea and vomiting, | | | | [place], [place] | | intractability of | | | | [address] | | vomiting not | | | | [phone] | | specified, | | | | [...] be sent through Care Everywhere.Abdominal Pain, Adult ([place])Methamphetamine Abuse and Addiction, Understanding ([place])Vomiting (Adult) ([place])documented in this encounter Medications at Time of [...] | | | | | | [place] [address] | | | | | | [phone] | | | | | | | [...] E?MRN: | | | | | | [id number] | | | [id number] | | | his | | | [...] | | | [id number] | | | [id number] | | | a0 ED | | [...] | | | e | | | [place] | | | | | | Health [...] | | | Dates | | | TRIBE | | | | | | PROJEC [...] | | ectomy | | | , [place] | | | with | | | [...] | [facility] | [address] [facility] | [place] [address] | | | [facility] | | [...] - 1.030 | [facility] | | | [place] | | | [facility] | | [...] [place] | [address] [facility] | [place] [address] | | | [facility] | | | | | [...] YARELISCARLOS ESPINOZAShahnaz | [address] | [place] [address] | | | [facility] | | [...] + | [facility] [place] | [address] [facility] | [place] [address] | | | [facility] | | [...] + | [facility] [place] | [address] | [place] [address] | | | [facility] | | [...] + | [facility] [place] | [address] [facility] | [place] [address] | | | [facility] | | [...]
--- OUTSIDE RECORDS SUMMARY | ~2019-09-08 | XMS | Encounter Summary ---
Demographics + + + | Address | [address] | | | [place] [address] | + + + | Home Phone [...] + | Author | [facility] | | | and Ankitana | + + + | Organization | [facility] [...] Team Providers + +------+ + | Care Verification Rep Name | Role | Phone | + [...] | | | and abscess | | [address] | | | | | UTI (lower | | Phone: | | | | | urinary | | [phone] | | | | | tract | | Fax: | | | | | infection) | | [phone] | | | | | Methamphetam | | | | | | | ine use | | | | | | | ([facility]) G[place]O | | | | | | | (acute | | | | | | | kidney | | | | | | | injury) | | | | | | | ([facility]) | | | | | | [...] + + | 02/22/ | Hospital | [facility] | Marco Hale MD | Sepsis, due to | | 2015 - | Encounter | [facility] | [address] | unspecified organism | | | | [facility] [address] | [place] [address] | ([facility]) (Primary Dx); | | 02/24/ | | [address] [place], | [phone] | Cellulitis and | | 2014 | | [place] [address] | | abscess; | | | | [phone] | Sussy Pitt, | Hyponatremia; UTI | | | | | [address] | (lower urinary tract | | | | | [address], [address] | infection); [place] | | | | | [place] [address] | (acute kidney | | | | | [phone] | injury) ([facility]); | | | | | | Methamphetamine use; | | | | | Fernanda Siddiqi MD [address] | Bipolar affective | | | | | [address] | disorder, current | | | | | floor [place] | episode depression, | | | | | [address] | unspecified severity | | | | | | ([facility]); Heroin | | | | | | dependence ([facility]); | | | | | | [...] Siddiqi MD - 02/24/2015 11:32 AM PDT [facility] FACULTY HOSPITALIST DISCHARGE SUMMARY PATIENT NAME: Anne [...] Yolanda Lee 1-2 weeks Daily return to [place] outpatient infusion for IV Rocephin 2 g [...] Plan Improved, current EF 55%. History of MD, stent and EF of 40% 2012 at [facility] Continue Plavix, Lipitor, PHOEBE inhibitor, beta mateus, [...] this chart may have been created with Supersolid voice recognition software. Occasi onal wrong-word or [...] dressing, secure with phoebe wrap. change daily. 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 notified RIZWANA pt will need 2 weeks IV ABX at discharge. Per chart review pt has done home infusion with [facility] before. Referral made to IV Therapy who will have [facility] assess pt for home infusion vs outpatient series. RIZWNAA will continue to follow and assist as [...] change dressings. Faxed RX for supplies to [employer]. 02/24/15 0915 Visit Information Visit Type Wound re-assessment Wound 02/22/15 Left: palm abscess;extravasation Observed Date: 02/22/15 Side: Left: Location: palm Wound Type: abscess;extravasation A dditional Comments: (c) Wound WDL Ex Wound Base pink;moist Periwound Area intact Drainage Characteristics/Odor serosanguineous Drainage Amount scant Wound Cleaning sterile normal saline Wound Interventions antimicrobial gel Dressing low-adherence/ewz-mofkqpbed-wysspgs Wound 02/22/15 0850 Right: dorsal hand abscess Observed Date/Observed Time: 02/22/15 0850 Side: Right: Orientation: dorsal Location: h and Wound Type: abscess Wound WDL Ex Wound Base moist;pink Periwound Area swelling;redness Drainage Characteristics/Odor serosanguineous Drainage Amount scant Wound Interventions antimicrobial gel Dressing dressing changed:;low-adherence/kra-bvlqxmbgm-ffwxsee Visit Summary Discipline Providing Treatment WOCN Next Wound/Ostomy Visit Date (d/c today) Skylar Becker RN - 02/24/2015 4:12 AM PDT Nursing Handoff Note Room # 922/922-01 Item for medical coordinator pesticide use Comments Dx/Tx: Sepsis, BCx positive for strep [...] Stool Occurrence: 1 (02/23/15 0600) Pain Management: Belt 10/325 tab 1 po Q 4 hrs, [...] Handoff Note Room # 922/922-01 Item for medical coordinator pesticide use Comments Dx/Tx: Sepsis, BCx positive for strep [...] ernanda Siddiqi MD - 1:59 PM PDT [facility] FACULTY HOSPITALIST PROGRESS NOTE PATIENT NAME: [...] Plan Improved, current EF 55%. History of MD, stent and EF of 40% 2011 at [facility] Continue Plavix, Lipitor, PHOEBE inhibitor, beta mateus, [...] this chart may have been created with Supersolid voice recognition software. Occasi onal wrong-word or sound-alike substitutions may have occurred due to the inherent meyers itations of voice recognition software. Please read the chart carefully and recognize, using context, where these substitutions have occurred Halle Moore RN - 0 02/23/2015 5:04 AM PDT Nursing Handoff Note Room # 922/922-01 Item for medical coordinator pesticide use Comments Dx/Tx: Sepsis, 2 (+) BC for [...] results found for this basename: POCGLU 1. rAlyn Reddy RN - 02/22/2015 11:38 PM PDTAt [...] Handoff Note Room # 922/922-01 Item for medical coordinator pesticide use Comments Dx/Tx: Sepsis, + BC strep A; [...] Handoff Note Room # 922/922- Item for medical coordinator pesticide use Comments Dx/Tx: Sepsis -> IV abx, fluids [...] D/C Date: Last bowel movement: Pain Management: Belt prn Filed Vitals: 02/22/15 0936 02/22/15 1006 [...] | | | | | | [place] [address] | | | | | | [phone] | | | | | | | [...] + | [facility] | [address] | [place] [address] | | | [facility] | | | | | LABORATORY [...] + + | [facility] | [address] | [place] [address] | | | [facility] | [...] + + | Glucose | 145 (H)Comment: Ethiopian | 65 - 99 mg/dL | [facility] [...] | | | | failure.For | | [facility] | | | | Americans, multiply the [...] + + | [facility] | [address] | [place] [address] | | | [facility] | | | | | LABORATORY [...] | ANNE MARIE PICHARDO Study Date: 02/23/2015MRN: [id number] | | | Patient Location: [facility]ED 922DOB: 1955 | | | Age: 59 yrs Gender: FemaleHeight: | | | 68 in Weight: 139 lb | | | BSA: 1.8 m2 HR: 65 | | | Rhythm: SR.History: CAD, ACUTE MD, ICM, | | | HTN, ANXIETY, DEPRESSION.Reason [...] | |Ordering Physician: FERNANDA SIDDIQI | | |Verification Rep: Farzad Parker | | |[id number]: | | | | | + + --+ + + | Procedure Note | + + | Tim, Rad Results In - 02/23/2015 12:44 PM PDT | | Adult Echo | | Report | | | | Name: ANNE MARIE PICHARDO Study Date: 02/23/2015 | | Patient Location: [place] [address] | | : 1955 Age: 59 yrs Gender: Female | | Height: 68 in Weight: 139 lb BSA: 1.8 m2 | | HR: 65 Rhythm: SR. | | History: CAD, ACUTE MD, ICM, HTN, ANXIETY, DEPRESSION. | | Reason [...] | Ordering Physician: FERNANDA SIDDIQI | | Verification Rep: Farzad Parker | | [id number]: | + + Comprehensive Metabolic Panel (02/23/2015 [...] + + | Glucose | 112 (H)Comment: Ethiopian | 65 - 99 mg/dL | [facility] | | | | Diabetes [...] + + | [facility] | [address] | [place] [address] | | | [facility] | | | | | [...] + | YARELISDEMIKarly MATAMOR[facility] | [address] | [place] [address] | | | [facility] | | | | | LABORATORY [...] + + | [facility] | [address] | [place] [address] | | | [facility] | | | | | [...] + + | [facility] | [address] | [place] [address] | | | [facility] | | | | | LABORATORY [...] + | [facility] | [address] | [place] [address] | | | [facility] | [...] + | [facility] | [address] | [place] [address] | | | [facility] | | | | | LABORATORY [...] + | [facility] | [address] | [place] [address] | | | [facility] | | | | | [...] - 1.030 | [facility] | | | [place] | | | [facility]ED | | | [...] + | [facility] | [address] | [place] [address] | | | [facility] | | | | | LABORATORY [...] | | | | [place] [address] ON | | SACRED | | | [...] + | [facility] | [address] | [place] [address] | | | [facility] | | | | | LABORATORY [...] + + | Y[facility]ELISCARLOS [facility] | [address] | [place] [address] | | | [facility] | | | | | LABORATORY [...] + | [facility] | [address] | [place] [address] | | | [facility] | [...] [address] | [place] [address] | | | [facility] | | | | | [...] + | [facility] | [address] | [place] [address] | | | [facility] | | | | | LABORATORY [...] + + | Glucose | 104 (H)Comment: Ethiopian | 65 - 99 mg/dL | [facility] [...] + + | Performing | Address | City/State[facility] | Phone Number | | Organization | | | | + + + + + | [facility] | [address] | [place] [address] | | | [facility] | | | | | LABORATORY [...] + + | [facility] | [address] | [place] [address] | | | [facility] | | | | | [...] + + | [facility] | [address] | [place] [address] | | | [facility] | [...] + + | [facility] | [address] | [place] [address] | | | [facility] | [...] | YARELISNCE | | | | C [facility] 02/22 2235 | | SACRED | | [...] + | [facility] | [address] | [place] [address] | | | [facility] | | | | | LABORATORY [...] -------- ---- | | | 02/22/2015 07:08 [facility] | | | Emergency -fever, chills 02/01/2015 14:46 [facility] | | | [facility] Emergency -FIT/ADJ VASCULAR CATHETER | | [...] UTERUS | | | 01/08/2015 21:11 [facility] Emergency | | | -Cellulitis and abscess of hand, except fingers and thumb | | | | | | 2. Unspecified essential hypertension | | | | | | 3. Old myocardial infarction | | | | | | 4. PERCUTANEOUS TRANSLUM CORON ANGIOPLASTY STATUS | | | | | | 5. Tobacco use disorder 12/26/2014 18:55 [place] | | | [facility] Emergency -3- Skin Problem | | [...] unspecified type of vessel, | | | united [place] or graft | | | -Hand Swelling VISIT | | | COUNT (1 YR.) Visits Medicaid [place] Dx Location ------ | | | --------- 4 0 | | | [facility] 2 0 | | | [facility] 1 0 | | | [facility] 7 0 Total | | | Note: Visits indicate total known visits. Medicaid [place] Dx are the | | | number of primary diagnoses on the [facility]'s non-emergent dx list. | | | | | | --- Guidelines Source: [facility] Guidelines Date: | | | 09/06/2013 Care Recommendation: Care at [facility] | | | Health Past Medical & [...] | | | Marycarmen 02/23/15 at 0800, [facility] ro SBP | | | | [...] 02/24/20 | | | | | Starting [facility] 02/23/15 at 1408, For | | [...] | | | 10 mEq, Oral, ONCE, [facility] 02/23/15 | | PM PDT | [...]
--- OUTSIDE RECORDS SUMMARY | ~2019-09-08 | XMS | Encounter Summary ---
Demographics + + + | Address | [address] | | | [place] [address] | + + + | Home Phone [...] | Author | [facility] | | | and Ankitana | + + + | Organization | [facility] | | [...] Team Providers + +------+ + | Care Black Pickler Name | Role | Phone | + [...] | | | CENTER [address] | [place], [place] | | | | [address] | [address] | | | | | [place] | | | | | | [address] | | | | | | [phone] | | | +--------+ + + + [...] | | | | | | [place] [address] | | | | | | [phone] | | | | | | | | +--------+---------+ + + + documented as of this encounter Visit Diagnoses Not on filedocumented in this encounter"
--- OUTSIDE RECORDS SUMMARY | ~2019-09-08 | XMS | Encounter Summary ---
Demographics + + + | Address | [address] | | | [place] [address] | + + + | Home Phone [...] | [facility] | | | and Ankitana | + + + | Organization | [facility] | | [...] Team Providers + +------+ + | Care Sheet Finisher Name | Role | Phone | + [...] | | | | | [address] | [place] | | | | | [place] | [address] | | | | | [address] | | | | | | [phone] | | | +--------+ + + + [...] 09/10/18 1550 by | | eral | jxun-evd-xaczlj catheter system; | LINDSAY LOW[facility] | [place] [...] | | | | | | [place] [address] | | | | | | [phone] | | | | | | | [...]
--- OUTSIDE RECORDS SUMMARY | ~2019-09-08 | XMS | Encounter Summary ---
Demographics + + + | Address | [address] | | | [place] [address] | + + + | Home Phone [...] Author | [facility] | | | and Ankitana | + + + | Organization | [facility] | | [...] Team Providers + +------+ + | Care Postulant Name | Role | Phone | + +------+ + PCP | Unavailable | + +------+ + Encounter Details +--------+ + + + + | Date | Type | Department | Care Team | Description | +--------+ + + + + | 05/27/ | Hospital | [facility] | Mani Schneider MD | | | 2012 - | Encounter | [facility] | [address] | | | [address] [facility] [address] | | | 09/21/ | | HOSPITAL [address] | [place], [place] | | | 2012 | | [place] | [address] | | | | | [address] | | | | | | [phone] | | | +--------+ + + + [...] [address] | | | | | | [place], | | | | | | [place] [address] | | | | | | [phone] | | | | | | | | +--------+---------+ + + + documented as of this encounter Visit Diagnoses Not on filedocumented in this encounter"
--- OUTSIDE RECORDS SUMMARY | ~2019-09-08 | XMS | Encounter Summary ---
Demographics + + + | Address | [address] | | | [place] [address] | + + + | Home Phone [...] | Author | [facility] | | | and Ankitana | + + + | Organization | [facility] | | [...] Team Providers + +------+ + | Care Message Clerk Name | Role | Phone | [...] [facility] | MD Ver[address] | BYPASS GRAFT X3 EVH | | | | OP [address] | [address] [place] | JU | | | | [place] | [id number] | | | | | [address] | | | | | | [phone] | | | +--------+---------+ + + + [...] Pharmacist notified and gave patient number for [facility] pharmacy to transfer medications in AM. Given [...] AR NP - 06/15/2018 12:[address] [facility] [...] precauti ons. She was recently released from assisted before arriving at the ER and our social service liaison has confirmed that she is free to [...] and occupational therapy for post-op rehab. - [place] [facility]. Disposition: Home with family. Patient was advised to call our office or their customer solutions supervisor with any questions. Follow-Up: Follow-up Information SALVATORE Ventura. Go on 06/23/2018. Specialty: Nurse Practitioner Why: Hospital follow up scheduled at 11:[address] Roa Contact information: [address] [facility] [address] Hemanth Webster MD. Schedule an appointment as soon as possible for a visit on 06/29/2018 . Specialty: Cardiothoracic Surgery Why: 11:30 AM Contact information: [address], [place] [address] [facility] [address] Schedule an appointment as soon as possible for a visit with [facility] . Why: Please call to schedule your 1 month follow-up with cardiology. Contact information: [address] [place] [address] [facility] [address] Time spent on discharge planning: greater than 30 minutes CABG Checklist ACEI/ARB/ARNI prescribed: No - Hypotension Aspirin prescribed: Not addressed Beta mateus (evidence-based) prescribed: Yes Beta mateus prescribed: N/A - LV EF is less than 41% High intensity statin prescribed: Yes Referral to cardiac rehab: Yes Tobacco cessation counseling provided: Yes [facility] [address], [address] [place] [address] Portions of this chart may have been created with [employer] voice recognition software. Occasi onal wrong-word or [...] feeling more short of breath, please call [place] [facility] at [phone]. 2. For problems or concerns with your incision or your chest, please call [facility]) at [phone]. After Coronary Artery Bypass Surgery When you [...] by medication, call your healthcare pr ovider. 1356-7614 Darrell [facility], [address] [place] [address], [place] [address]. All rights reserve d. This information is [...] | | | | infarction) ([facility]), | | | | | | | Polysubstance abuse | | | | | | | ([facility]) | | | | | | [...] bedside. Pt states she was [facility] but states she is no l onger in custody. No guards at the door. SW Assembly Mechanic suggested SW contact assisted to confirm. SW spoke with [facility] who confirms pt was released. SW spoke with pt regarding discharge plan. Pt plans to discharge to friend's home. SW available should further discharg e planning needs arise. Keith Lopez MD - 06/15/2018 8:45 AM PDT [facility] PATIENT NAME: Smitha Fletcher : [...] dilol. 2. Follow-up requested. Keith Harp MD, [facility] Portions of this chart were created with [employer] voice recognition software. Occasional wro ng-word or "sound-alike" substitutions may have occurred due to the inherent limitations of voice recognition software. Please read the chart carefully and recognize, using context, w here those substitutions have occurred. eonte Lee MD - 06/15/2018 7:15 AM PDTFormatting of this no te might be different from the original. [facility] Pt. Name/Age/: Smitha Fletcher 62 y.o. 1955 Med. Record Number: [id number] Date of admission: 06/07/2018 POD # 4 Procedure: CABG X 3 Surgeon: Eleanor Subjective New complaints: poor sternal precautions. No c/o this morning. Acknowledges that came from [facility] assisted. Not sure where she is going. No [...] signed by: Hector Decker PA-C Cardiothoracic Surgery [facility] [address], [address] [place] [address] 06/15/2018 7:15 [facility] Agree with detailed plan nicely outlined by Hector Ashley Moreland MSW - 06/14/2018 1:05 PM PDTSOCIAL WORK PLAN: TBD INTERVENTION: SW acknowledged order for return to assisted. Pt came from assisted per chart review and may have to go back there upon DC. SW will continue to follow for DC planning. Frandy Estrada ARNP - 06/14/2018 9:11 AM PDTBlood Glucose log reviewed. Patient is stable, with control led blood glucose. Not requiring insulin Diabetes Service will sign off. Medication Reconciliation for diabetes medications has been completed. Please contact us at [phone] should the need arise. Thank you for [...] signed by: Rip Yao M.D. CardioThoracic Surgery [facility] 06/14/2018 9:23 [facility] Pt. Name/Age/: Smitha Fletcher 62 y.o. 1955 Med. Record Number: [id number] Date of admission: 06/07/2018 POD # 3 [...] the patient is going. Willl have social service liaison start arrangements. Problem List Patient Active Problem [...] signed by: Hector Decker PA-C Cardiothoracic Surgery [facility] [address], [address] [address] 06/14/2018 8:59 [facility] Dave Hill MD - 06/14/2018 8:07 AM PDT [facility] PATIENT NAME: Smitha Fletcher : [...] Portions of this chart were created with [employer] voice recognition software. Occasional wro ng-word or [...] Per RN; she will be discharging from [facility] to assisted that she came from. Assessment for glucose [...] by: SALVATORE Elias 06/13/2018 14:53 Diabetes team, [facility] [phone] Amaury Hill MD - 06/13/2018 10:27 AM PDTFormatting of this note might be different from the origi nal. [facility] PATIENT NAME: Smitha Fletcher : [...] Portions of this chart were created with [employer] voice recognition software. Occasional wro ng-word or [...] signed by: Rip Yao M.D. CardioThoracic Surgery [facility] 06/13/2018 9:35 [facility] Pt. Name/Age/: Smitha Fletcher 62 y.o. 1955 Med. Record Number: [id number] Date of admission: 06/07/2018 POD #2 Procedure: [...] signed by: Hector Decker PA-C Cardiothoracic Surgery [facility] [address], [address] [place] [address] 06/13/2018 8:11 [facility] Kezia Downing RN - 06/12/2018 3:10 [...] discharge planning. ASSESSMENT/CHART REVIEW: Pt resides in [place]. She has Medicare coverage. COPD, is risk for readmission. If pt d oes not need placement she may benefit from home health post acute care. D/C TRANSPORT: TBD BARRIERS TO D/C: Medical stability CONTACTS: Hanna Sethi: [phone] signed by JEFFY Cabrales at 06/12/2018 1 2:24 PM Dave Hill MD - 06/12/2018 11:33 AM PDTFormatting of this note might b e different from the original. [facility] PATIENT NAME: Smitha Fletcher : 1955: [...] 1.0 0.4 - 1.5 % Comment PS8 NKV510 O2 Content, Arterial 15.7 15.0 - 23.0 [...] 22:29 Result Value Ref Range Product Code W3451W41 UNIT # [id number] UNIT ABO O UNIT RH NEG CROSSMATCH INTERP Compatible Unit Status XM Blood Product Expiration Date and Time 278942402683 Product Blood Type Barcode 9500 Product Code P5637C73 UNIT # [id number] UNIT ABO O UNIT RH NEG CROSSMATCH INTERP Compatible Unit Status IS Blood Product Expiration Date and Time 703997422582 Product Blood Type Barcode 9500 Blood Gas, [...] 6:53 Result Value Ref Range Product Code D7328S27 UNIT # [id number] UNIT ABO O UNIT RH NEG CROSSMATCH INTERP Compatible Unit Status XM Blood Product Expiration Date and Time 897147107598 Product Blood Type Barcode 9500 POC Glucose [...] Martin MD - 06/12/2018 10:12 AM PDT [facility] Hemanth Webster [...] is a 62 y.o.femalewith hx substance abuse, MN and stent [place] [address] Brittnee Sandoval cardiology. She was brought from assisted, complaining of severe 8-9/10 burning chest pain [...] - Single Lumen 06/10/18 1446 Right Forearm gihe-gkw-hihtsp catheter sys tem 22 gauge;1 in length [...] - 99 mg/dL Final Comment: Performed by [facility] [address] [place] [address] All pertinent labs and imaging have been [...] this chart may have been created with [employer] voice recognition software. Occasi onal wrong-word or sound-alike substitutions may have occurred due to the inherent meyers itations of voice recognition software. Please read the chart carefully and recognize, using context, where these substitutions have occurred Brenna Henderson Mt dicmercedes Student - 06/10/2018 11:05 AM PDTFormatting [...] TTE 06/08/18 showed LVEF of 45% with pbcockek-mr-ljmyjw hypokinesis of lateral and inferio r castillo. [...] female with a pmhx of polysubstance abuse, CAD/MN s/p stent (2011), ischemic EFrEF (LVEF of 45%), HTN, bipolar disorder, nicotine dependence and incarce ration that presented from assisted with severe left sided chest pain that [...] r educational purposes. Please refer to attending/resident/physician executive assistant/nurse practit ioner note regarding further patient [...] TTE on 018 revealed LVEF = 45%, vpxfgodn-pv-ccdyou hypokinesis of lateral and inferior castillo, julian [...] Complaint: Chest pain Hospital Course: 62F PMH CAD/MN s/p stent (2011), ischemic HFrEF (LVEF = 45%), HTN, polysubstance abuse (met hamphetamine & marijuana), HCV, bipolar disorder, nicotine dependence and incarceration pres ented from assisted w/ severe, burning, substernal chest pain w/ radiation to left shoulder and associated nausea and vomiting. Workup in ED revealed troponin elevation (peak 0.311 this admission) and patient was admitt ed for further workup and management w/ cardiology. Labs in ED also revealed UDS positive fo r amphetamine, methamphetamine, benzodiazepines and opiates. TTE revealed LVEF = 45%, eposnksr-vn-fumacd hypokinesis of lateral and inferior castillo, mitr [...] is a 62 y.o.femalewith hx substance abuse, MN and stent [place] [address] Sandoval cardiology. She was brought from assisted, complaining of severe 8-9/10 burning chest pain [...] hypokinesis present but the patient has has MN's in the past . Mild LVH. Stress [...] Single Lumen 06/09/18 0836 Left Distal Forearm ilsr-tel-cuvppc cathet er system 20 gauge;1 1/4 in [...] this chart may have been created with [employer] voice recognition software. 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 Workup in ED revealed troponin elevation (peak 0.311 this admission) and patient was admitt ed for further workup and management w/ cardiology. Labs in ED also revealed UDS positive fo r amphetamine, methamphetamine, benzodiazepines and opiates. TTE revealed LVEF = 45%, pnlzqret-yw-yksxes hypokinesis of lateral and inferior castillo, mitr [...] 62 y.o. female with hx substance abuse, MN and stent [place] [address] Riya banuelos cardiology. She was brought from assisted, complaining on sever 8-10 burning chest pain [...] hypokinesis present but the patient has has MN's in the past . Mild LVH. Stress [...] lb) I/O last 3 completed shifts: In: 4612 [P.O.:582; I.V.:950; IV Piggyback:1050] Out: 750 [Urine:750] Wt Readings from Last 3 Encounters: 06/07/18 63.5 kg (140 lb) 05/03/17 63.5 kg (140 lb) 12/26/16 68 kg (150 lb) Active Lines PIV Line Peripheral IV Line - Single Lumen 06/07/18 1545 Right Anterior (palmar);Medial Forearm ove u-wyd-etftjc catheter system 20 gauge;other (see comments) 1 [...] this chart may have been created with [employer] voice recognition software. Occasi onal wrong-word or [...] Portions of this chart were created with [employer] voice recognition software. Occasional wro ng-word or "sound-alike" substitutions may have occurred due to the inherent limitations of voice recognition software. Please read the chart carefully and recognize, using context, w here those substitutions have occurred.Electronically signed by Shad Schuler MD at 06/08 10:27 AM Rhiannon Ireen RN - 06/07/2018 3:09 PM [id number] arrived to floor. Somu nlent. Asking very [...] | | | | | | [place] [address] | | | | | | [phone] | | | | | | | [...] [facility] | | | | Performed by [facility] [address] | | [address]CR[address] | | | | [address] [place] | | HEART | | | | [address] | | MEDICAL | | | | [...] + | [facility] | [address] | [place] [address] | | | [facility] | | | | | [...] | | MEDICAL | | | | [facility] [address], | | CENTER | | | | [place] [address] | | LABORATORY | | | | [...] + + | [facility] | [address] | [place] [address] | | | [facility] | | | | | [...] + + + + | Product | [id number] | | REFERENCE | | | Code | | | LAB [place] | | | | | | [facility] | | | | | | [facility] | | | | | | B[facility]OD | | | | | | CENTER | | + + + + + + | UNIT # | [id number] | | REFERENCE | | | | | | [facility] [place] | | | | | | [facility] | | | | | | [facility] | | | | | | BLOOD | | | | | | CENTER | | + + + + + + | UNIT ABO | O | | REFERENCE | | | | | | [facility] [place] | | | | | | [facility] | | | | | | [facility] | | | | | | BLOOD | | | | | | CENTER | | + + + + + + | UNIT RH | NEG | | REFERENCE | | | | | | [facility] [place] | | | | | | [facility] | | | | | | [facility] | | | | | | BLOOD | | | | | | CENTER | | + + + + + + | CROSSMATCH | Compatible | | REFERENCE | | | INTERP | | | [facility] [place] | | | | | | [facility] | | | | | | [facility] | | | | | | BLOOD | | | | | | CENTER | | + + + + + + | Unit Status | RE | | REFERENCE | | | | | | [facility] [place] | | | | | | [facility] | | | | | | [facility] | | | | | | BLOOD | | | | | | CENTER | | + + + + + + | Blood | [id number] | | REFERENCE | | | Product | | | [facility] [place] | | | Expiration | | | [facility] | | | Date and | | | [facility] | | | Time | | | BLOOD | | | | | | CENTER | | + + + + + + | Product | [id number] | | REFERENCE | | | Blood Type | | | [facility] [place] | | | Barcode | | | [...] + + + | Specimen Expiration Date: [id number] | REFERENCE LAB | | | [place] | | | [facility] | | | B[facility]OD C[facility] | + + + + + + + + | Performing | Address | City/State/Zipcode | Phone Number | | Organization | | | | + + + + + | REFERENCE LAB | [address] | [place] [address] | [phone] | | [place] | | | | | [facility] [...] | | | POC | Performed by [facility] [address] | | SACRED | | | | [address] [place] | | HEART | | | | [address] | | MEDICAL | | | | [...] [address] | [place] [address] | | | [facility] | | | | | LABORATORY [place] | | | | + + + + + Red Blood Cells (06/14/2018 12:12 PM PDT) + + + + + + | Component | Value | Ref Range | Performed | Pathologist | | | | | At | Signature | + + + + + + | Product | [id number] | | REFERENCE | | | Code | | | [facility] [place] | | | | | | [facility] | | | | | | [facility] | | | | | | BLOOD | | | | | | CENTER | | + + + + + + | UNIT # | [id number] | | REFERENCE | | | | | | [facility] [place] | | | | | | [facility] | | | | | | [facility] | | | | | | BLOOD | | | | | | CENTER | | + + + + + + | UNIT ABO | O | | REFERENCE | | | | | | [facility] [place] | | | | | | [facility] | | | | | | [facility] | | | | | | BLOOD | | | | | | CENTER | | + + + + + + | UNIT RH | NEG | | REFERENCE | | | | | | [facility] [place] | | | | | | [facility] | | | | | | [facility] | | | | | | BLOOD | | | | | | CENTER | | + + + + + + | CROSSMATCH | Compatible | | REFERENCE | | | INTERP | | | [facility] [place] | | | | | | [facility] | | | | | | [facility] | | | | | | BLOOD | | | | | | CENTER | | + + + + + + | Unit Status | IS | | REFERENCE | | | | | | [facility] [place] | | | | | | [facility] | | | | | | [facility] | | | | | | BLOOD | | | | | | CENTER | | + + + + + + | Blood | [id number] | | REFERENCE | | | Product | | | [facility] [place] | | | Expiration | | | [facility] | | | Date and | | | [facility] | | | Time | | | BLOOD | | | | | | CENTER | | + + + + + + | Product | [id number] | | REFERENCE | | | Blood Type | | | LAB [place] | | | Barcode | | | [facility] | | | | | | [facility] | | | | | | BLOOD | | | | | | CENTER | | + + + + + + | Product | [id number] | | REFERENCE | | | Code | | | [facility] [place] | | | | | | [facility] | | | | | | [facility] | | | | | | BLOOD | | | | | | CENTER | | + + + + + + | UNIT # | [id number] | | REFERENCE | | | | | | [facility] [place] | | | | | | [facility] | | | | | | [facility] | | | | | | BLOOD | | | | | | CENTER | | + + + + + + | UNIT ABO | O | | REFERENCE | | | | | | [facility] [place] | | | | | | [facility] | | | | | | [facility] | | | | | | BLOOD | | | | | | CENTER | | + + + + + + | UNIT RH | NEG | | REFERENCE | | | | | | [facility] [place] | | | | | | [facility] | | | | | | [facility] | | | | | | BLOOD | | | | | | CENTER | | + + + + + + | CROSSMATCH | Compatible | | REFERENCE | | | INTERP | | | [facility] [place] | | | | | | [facility] | | | | | | [facility] | | | | | | BLOOD | | | | | | CENTER | | + + + + + + | Unit Status | IS | | REFERENCE | | | | | | [facility] [place] | | | | | | [facility] | | | | | | [facility] | | | | | | BLOOD | | | | | | CENTER | | + + + + + + | Blood | [id number] | | REFERENCE | | | Product | | | [facility] [place] | | | Expiration | | | [facility] | | | Date and | | | [facility] | | | Time | | | BLOOD | | | | | | CENTER | | + + + + + + | Product | [id number] | | REFERENCE | | | Blood Type | | | [facility] [place] | | | Barcode | | | [...] + + + | Specimen Expiration Date: [id number] | REFERENCE LAB | | | [place] | | | [facility] | | | [facility] | + + + + + + + + | Performing | Address | City/State/Zipcode | Phone Number | | Organization | | | | + + + + + | REFERENCE LAB | [address] | [place] [address] | [phone] | | [place] | | | | | [facility] [...] | | | POC | Performed by [facility] [address] | | SACRED | | | | [address] [place], [place] | | HEART | | | | [address] | | MEDICAL | | | | [...] [address] | [place] [address] | | | [facility] | | | | | [...] | | | POC | Performed by [facility] [address] | | [place] | | | | [place] | | HEART | | | | [address] | | MEDICAL | | | | [...] | [address] | [place] [address] | | | [facility]ICAL CENTER | [...] | | | POC | Performed by [facility] [address] | | SACRED | | | | [address] [place], [place] | | HEART | | | | [address] | | MEDICAL | | | | [...] [address] | [place] [address] | | | [facility] | | | | | [...] | | | POC | Performed by [facility] [address] | | [place] | | | | [place] | | HEART | | | | [address] | | MEDICAL | | | | [...] + + | [facility] | [address] | [place] [address] | | | [facility]ICAL CENTER | [...] | | | POC | Performed by [facility] [address] | | SACRED | | | | [address] [place], [place] | | HEART | | | | [address] | | MEDICAL | | | | [...] [address] | [place] [address] | | | [facility] | | | | | [...] | | | POC | Performed by [facility] [address] | | [place] | | | | [place] | | HEART | | | | [address] | | MEDICAL | | | | [...] + + | [facility] | [address] | [place] [address] | | | HE[facility] MEDICAL CENTER | [...] [facility] | | | | Performed by [facility] [address] | | SACRED | | | | [address] [place] | | HEART | | | | [address] | | MEDICAL | | | | [...] [address] | [place] [address] | | | [facility] | | | | | [...] | | MEDICAL | | | | [facility] [address], | | CENTER | | | | [place] [address] | | LABORATORY | | | | [...] + + | [facility] | [address] | [place] [address] | | | [facility] | | | | | [...] | | | POC | Performed by [facility] [address] | | SACRED | | | | [address] [place] | | HEART | | | | [address] | | MEDICAL | | | | [...] [address] | [place] [address] | | | [facility] | | | | | [...] | | | POC | Performed by [facility] [address] | | [place] | | | | [address] [place], [place] | | HEART | | | | [address] | | MEDICAL | | | | [...] + | [facility] | [address] | [place] [address] | | | [facility] | | | | | [...] | | | POC | Performed by [facility] [address] | | SACRED | | | | [address] [place] | | HEART | | | | [address] | | MEDICAL | | | | [...] [address] | [place] [address] | | | [facility] | | | | | [...] | | | POC | Performed by [facility] [address] | | [place] | | | | [address] [place], [place] | | HEART | | | | [address] | | MEDICAL | | | | [...] + | [facility] | [address] | [place] [address] | | | [facility] | | | | | [...] | | | POC | Performed by [facility] [address] | | SACRED | | | | [address] [place] | | HEART | | | | [address] | | MEDICAL | | | | [...] SACRED | [address] | [place] | | | [facility] | | | | | [...] | YINE | | | POC | [facility] [address], | | SACRED | | | | [place] | | HEART | | | |Performed by [facility] [address], [place] | | MEDICAL | | | | [...] + + | [facility] | [address] | [place] [address] | | | HEART MEDICAL CENTER | [...] | | | POC | Performed by [facility] [address] | | SACRED | | | | [address] [place] [place], [place] | | HEART | | | | [address] | | MEDICAL | | | | [...] + | [facility] | [address] | [place] [address] | | | [facility] | | | | | [...] | YINE | | | POC | [facility] [address], | | SACRED | | | | [place] | | HEART | | | |Performed by [facility] [address], [place], [place] | | MEDICAL | | | [...] SACRED | [address] | [place], [place] | | | [facility] | | | | | [...] | PROVIDENCE | | | POC | [facility] [address], | | SACRED | | | | [place] [address] | | HEART | | | |Performed by [facility] [address], [place] [address] | | MEDICAL | | | [...] + + | [facility] | [address] | [place] [address] | | | [facility] CENTER | | | | [...] | TRACEMASTER | | Duration:184 msP Horizontal [place]:5 degP Front [place]:55 degQ Onset:508 | | | msQRSD Interval:104 msQT Interval:452 msQTcB:452 msQTcF:452 msQRS | | | Horizontal [place]:129 degQRS [place]:-53 degI-40 Horizontal [place]:77 degI-40 | | | Front [place]:-44 degT-40 Horizontal [place]:204 degT-40 Front [place]:-83 | | | degT Horizontal [place]:95 degT Wave [place]:39 degS-T Horizontal [place]:79 | | | degS-T Front [place]:49 degSeverity:- ABNORMAL ECG -INTERP:SINUS | | | RHYTHMINTERP:CONSIDER RIGHT VENTRICULAR HYPERTROPHYINTERP:PROBABLE | | | INFERIOR INFARCT, AGE INDETERMINATEINTERP:BORDERLINE ST ELEVATION, | | | ANTERIOR LEADSElectronically signed by: ELIZABETH CAMPBELL 06-12-2018 | | | 07:37:14 | | |QRS Horizontal [place]:129 deg | | |QRS [place]:-53 deg | | |I-40 Horizontal [place]:77 deg | | |I-40 Front [place]:-44 deg | | |T-40 Horizontal [place]:204 deg | | |T-40 Front [place]:-83 deg | | |T Horizontal [place]:95 deg | | |T Wave [place]:39 deg | | |S-T Horizontal [place]:79 deg | | |S-T Front [place]:49 deg | | |Severity:- ABNORMAL ECG - [...] + + | WAMT TRACEMASTER | [address] | [place] [address] | [phone] | + + + + + CBC [...] PROVIDENCE | | | | Performed by [facility] [address] | | SACRED | | | | [address] [place] | | HEART | | | | [address] | | MEDICAL | | | | [...] SACRED | [address] | [place] [address] | | | [facility] | | | | [...] | | MEDICAL | | | | [facility] [address], | | CENTER | | | | [place] [address] | | LABORATORY | | | | [...] | [address] | [place] [address] | | | [facility] | | | | | [...] | | | POC | Performed by [facility] [address] | | SACRED | | | | [address] [place], [place] | | HEART | | | | [address] | | MEDICAL | | | | [...] + + | AMILCAR SACRED | [address] | [place], [place] | | | [facility] [...] | PROVIDENCE | | | POC | [facility] [address], | | SACRED | | | | [place] | | HEART | | | |Performed by [facility] [address], [place] | | MEDICAL | | | [...] + + | AMILCAR CARDONA | [address] | [place] [address] | | | [facility] | | | | | [...] | | | POC | Performed by [facility] [address] | | SACRED | | | | [address] [place] | | HEART | | | | [address] | | MEDICAL | | | | [...] + + | YINE SACRFAUSTO | [address] | [place] [address] | | | [facility] | | | | | [...] | | | POC | Performed by [facility] [address] | | SACRFAUSTO | | | | [address], [place] | | HEART | | | | [address] | | MEDICAL | | | | [...] + + | AMILCAR CARDONA | [address] | [place] [address] | | | [facility] | | | | | [...] PROVIDENCE | | | | Performed by [facility] [address] | mmol/L | SACRED | | | | [address] [place] | | HEART | | | | [address] | | MEDICAL | | | | [...] SACR | [address] | [place] [address] | | | [facility] | | | | | [...] YINE | | | | Performed by [facility] [address] | | SACRED | | | | [address], [place] | | HEART | | | | [address] | | MEDICAL | | | | [...] + | AMILCAR CARDONA | [address] | [place] [address] | | | [facility] | | | | | [...] 15.8 | 15.0 - 23.0 % | YAERLISN CE | | | Content, | | [...] CE | | | ARTERIAL | by [facility] [address], | | SACRED | | | | [place] [address] | | HEART | | | |Performed by [facility] [address], [place] [address] | | MEDICAL | | | | [...] + + | YARELISCARLOS SATURNINOFAUSTO | [address] | [place] [address] | | | [facility] | | | | | [...] | | | POC | Performed by [facility] [address] | | SACRED | | | | [address], [place] | | HEART | | | | [address] | | MEDICAL | | | | [...] SACRED | [address] | [place] [address] | | | HEART [facility] | | | | | LABORATORY [...] | | | POC | Performed by [facility] [address] | | SACRED | | | | [address] [place] | | HEART | | | | [address] | | MEDICAL | | | | [...] + + | YARELISCARLOS CARDONA | [address] | [place] [address] | | | [facility] | | | | | [...] | PROVIDENCE | | | | by [facility] [address], | mmol/L | SACRED | | | | [place] [address] | | HEART | | | |Performed by [facility] [address], [place] [address] | | MEDICAL | | | | [...] [address] | [place] [address] | | | [facility] | | | | | [...] | | | POC | Performed by [facility] [address] | | SACRFAUSTO | | | | [address] [place], [place] | | HEART | | | | [address] | | MEDICAL | | | | [...] | [address] | [place] [address] | | | [facility] | | | | | [...] | TRACEMASTER | | Duration:180 msP Horizontal [place]:-10 degP Front [place]:68 degQ Onset:512 | | | msQRSD Interval:110 msQT Interval:444 msQTcB:486 msQTcF:472 msQRS | | | Horizontal [place]:112 degQRS [place]:-63 degI-40 Horizontal [place]:100 | | | degI-40 Front [place]:-58 degT-40 Horizontal [place]: degT-40 Front [place]:160 | | | degT Horizontal [place]:104 degT Wave [place]:-11 degS-T Horizontal | | | [place]:104 degS-T Front [place]:32 degSeverity:- ABNORMAL ECG -INTERP:SINUS | | | RHYTHMINTERP:PROBABLE LEFT ATRIAL ABNORMALITYINTERP:NONSPECIFIC IVCD | | | WITH LADINTERP:INFERIOR INFARCT, AGE INDETERMINATEINTERP:LATERAL | | | INFARCT, OLDElectronically signed by: ELIZABETH CAMPBELL 06-12-2018 | | | 11:18:02 | | |QRS Horizontal [place]:112 deg | | |QRS [place]:-63 deg | | |I-40 Horizontal [place]:100 deg | | |I-40 Front [place]:-58 deg | | |T-40 Horizontal [place]: deg | | |T-40 Front [place]:160 deg | | |T Horizontal [place]:104 deg | | |T Wave [place]:-11 deg | | |S-T Horizontal [place]:104 deg | | |S-T Front [place]:32 deg | | |Severity:- ABNORMAL ECG - [...] + + | SARITHA REY | [address] | [place] [address] | [phone] | + + + + + PTT [...] | | | | | seconds.Performed by [facility] | | | | | | [address], | | | | | | [place] [address] | | | | + + + + + + + + | Specimen | + + | Blood specimen | | (specimen) | + + + + + + + | Performing | Address | City/State/Zipcode | Phone Number | | Organization | | | | + + + + + | YARELISDEMIKarly CARDONA | [address] | [place] [address] | | | [facility] | | | | | [...] | | | | to 3.5Performed by [facility] | | LABORATORY | | | | [address] [place], | | JAMINNER | | | | [place] [address] | | | | + + + + + + + + | Specimen | + + | Blood specimen | | (specimen) | + + + + + + + | Performing | Address | City/State/Zipcode | Phone Number | | Organization | | | | + + + + + | AMILCAR CARDONA | [address] | [place] [address] | | | [facility] | | | | | [...] | | MEDICAL | | | | [facility] [address], | | CENTER | | | | [place] [address] | | LABORATORY | | | | [...] + | AMILCAR CARDONA | [address] | [place] [address] | | | [facility] | | | | | [...] PROVIDENCE | | | | Performed by [facility] [address] | | SACRED | | | | [address], [place] | | HEART | | | | [address] | | MEDICAL | | | | [...] [address] | [place] [address] | | | [facility] | [...] PROVIDENCE | | | Arterial | by [facility] [address], | mmol/L | SACRED | | | | [place] [address] | | HEART | | | |Performed by [facility] [address], [place] [address] | | MEDICAL | | | | [...] + | AMILCAR CARDONA | [address] [place] [address]. | [place] [address] | | | [facility] | | | | | [...] E | | | Normalized | by [facility] [address], | mg/dL | SACRED | | | | [place] [address] | | HEART | | | |Performed by [facility] [address], [place] [address] | | MEDICAL | | | | [...] + | AMILCAR CARDONA | [address] | [place] [address] | | | [facility] | | | | | [...] PROVIDENCE | | | | Performed by [facility] [address] | | SACRED | | | | [address] [place] | | HEART | | | | [address] | | MEDICAL | | | | [...] + + | YARELISDEMIKarly CARDONA | [address] | [place] [address] | | | [facility] | | | | | [...] +--------- ----+ + | Comment | [id number] | | PROVIDEN CE | | | [...] CE | | | ARTERIAL | by [facility] [address], | | SACRED | | | | [place] [address] | | HEART | | | |Performed by [facility] [address], [place] | | MEDICAL | | | [...] + + | PROVIDENCE SACRED | [address] | [place] | | | [facility]ENTER | [...] | | | Arterial | Performed by [facility] [address] | mmol/L | SACRED | | | | [address], [place], [place] | | HEART | | | | [address] | | MEDICAL | | | | [...] SACRED | [address] | [place] [address] | | | [facility] | [...] PROVIDEN CE | | | | by [facility] [address], | mmol/L | SACRED | | | | [place] [address] | | HEART | | | |Performed by [facility] [address], [place] [address] | | MEDICAL | | | | [...] + + | AMILCAR CARDONA | [address] | [place] [address] | | | [facility] | | | | | [...] | | | | | seconds.Performed by [facility] | | | | | | [address], | | | | | | [place] [address] | | | | + + + + + + + + | Specimen | + + | Blood specimen | | (specimen) | + + + + + + + | Performing | Address | City/State/Zipcode | Phone Number | | Organization | | | | + + + + + | AMILCAR CARDONA | [address] | [place] [address] | | | [facility] | | | | | [...] | | | Arterial | Performed by [facility] [address] | mmol/L | SACRED | | | | [address], [place] | | HEART | | | | [address] | | MEDICAL | | | | [...] [address] | [place] [address] | | | [facility] | [...] PROVIDEN CE | | | | by [facility] [address], | mmol/L | SACRED | | | | [place] [address] | | HEART | | | |Performed by [facility] [address], [place] [address] | | MEDICAL | | | | [...] AMILCAR CARDONA | [address] | [place] [address] | | | [facility] | | | | | [...] PROVIDENCE | | | Arterial | by [place] [address], | mmol/L | SACRED | | | | [place] [address] | | HEART | | | |Performed by [facility] [address], [place] [address] | | MEDICAL | | | | [...] + + | AMILCAR CARDONA | [address] | [place] [address] | | | [facility] | | | | | [...] PROVIDENCE | | | | Performed by [facility] [address] | | SACRED | | | | [address] [place] | | HEART | | | | [address] | | MEDICAL | | | | [...] + + | [facility] SACRED | [address] | [place] [address] | | | [facility] | | | | | [...] PROVIDENCE | | | Arterial | by [facility] [address], | mmol/L | SACRED | | | | [place] | | HEART | | | |Performed by [facility] [address], [place] | | MEDICAL | | | [...] + + | AMILCAR CARDONA | [address] | [place] | | | [facility] [...] PROVIDENCE | | | | Performed by [facility] [address] | | SACRED | | | | [address] [place] | | HEART | | | | [address] | | MEDICAL | | | | [...] + | AMILCAR CARDONA | [address] | [place] [address] | | | [facility] | | | | | LABORATORY ALTAGRACIA | | | | + + + + + ECHO Transesophageal (CHIQUITA) (06/11/2018 1:05 PM PDT) + + | Specimen | + + | | + + + + -----+ | Narrative | Performed At | + + -----+ | | [facility] | | Transesophageal Echocardiography Report (CHIQUITA) Demographics Patient | | | Name [facility] Room Number 270 | | | ZIYAD Patient Number [id number] Date of | | | Study 06/11/2018 Visit Number [id number] Accession | | | [id number] Interpreting Sharad Richard | | | Number Physician Date | | | of 1955 Referring Physician ELEANOR BERMUDEZ | | | VERONICA Age 62 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 Visible portions of ascending aorta | | | and arch normal. Grade 2atherosclerotic disease of descending aorta.9. | | | Pulmonary artery [id number]. Normal pericardium. No pericardial fluid. 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 Trace TR.7. Pulmonic valve normal Trace SC.8. Visible portions | | of ascending aorta and arch normal. 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 Pulmonary artery [id number]. Normal pericardium. No pericardial fluid. No pleural [...] [facility]ENCE | | | Arterial | by [facility] [address], | mmol/L | SACRED | | | | [place], [place] | | HEART | | | |Performed by [facility] [address], [place] | | MEDICAL | | | [...] SACRED | [address] | [place], [place] | | | [facility]ICAL [facility]ENTER [...] | | | Normalized | Performed by [facility] [address] | mg/dL | SACRED | | | | [address], [place], [place] | | HEART | | | | [address] | | MEDICAL | | | | [...] SACRED | [address] | [place] [address] | | | [facility] | [...] [facility]ENCE | | | Arterial | by [facility] [address], | mmol/L | SACRED | | | | [place] [address] | | HEART | | | |Performed by [facility] [address], [place] [address] | | MEDICAL | | | | [...] + | AMILCAR CARDONA | [address] | [place] [address] | | | [facility] | | | | | [...] PROVIDENCE | | | | Performed by [facility] [address] | mmol/L | SACRED | | | | [address] [place] | | HEART | | | | [address] | | MEDICAL | | | | [...] AMILCAR CARDONA | [address] | [place] [address] | | | [facility] | | | | | [...] | | Screen | | | LAB [place] | | | | | | [place] | | | | | | [facility] | | | | | | BLOOD | | | | | | CENTER | | + + + + + + | ABO | O | | REFERENCE | | | | | | LAB [place] | | | | | | [facility] | | | | | | [facility] | | | | | | BLOOD | | | | | | CENTER | | + + + + + + | Rh Type | Negative | | REFERENCE | | | | | | LAB [place] | | | | | | [facility] [...] Date: | REFERENCE LAB | | | [place] | | | [facility] | | | [facility] | + + + + + + + + | Performing | Address | City/State/Zipcode | Phone Number | | Organization | | | | + + + + + | REFERENCE LAB | [address] | [place] [address] | [phone] | | [place] | | | | | [facility] [...] | | | POC | Performed by [facility] [address] | | SACRED | | | | [address] [place] | | HEART | | | | [address] | | MEDICAL | | | | [...] AMILCAR CARDONA | [address] | [place] [address] | | | [facility] | | | | | [...] CENTER | | | | 3.5Performed by [facility] 101 | | LABORATORY | | | | [address] [place] | | CERN[place] | | | | [address] | | | | + + + + + + + + | Specimen | + + | Blood specimen | | (specimen) | + + + + + + + | Performing | Address | City/State/Zipcode | Phone Number | | Organization | | | | + + + + + | PROVIDEDEMIE SACRED | [address] | [place] [address] | | | [facility] | | | | [...] PROVIDENCE | | | | Performed by [facility] [address] | | SACRED | | | | [address] [place] | | HEART | | | | [address] | | MEDICAL | | | | [...] + + | YARELISDEMIKarly CARDONA | [address] | [place] [address] | | | [facility] | | | | | [...] | | MEDICAL | | | | [facility] [address], | | CENTER | | | | [place] [address] | | LABORATORY | | | | [...] + + | AMILCAR CARDONA | [address] | [place] [address] | | | HEART [facility] | | | | | LABORATORY [...] | | | | | seconds.Performed by [facility] | | | | | | [address], | | | | | | [place] [address] | | | | + + + + + + + + | Specimen | + + | Blood specimen | | (specimen) | + + + + + + + | Performing | Address | City/State/Zipcode | Phone Number | | Organization | | | | + + + + + | AMILCAR CARDONA | [address] | [place] [address] | | | [facility] | | | | | [...] PROVIDENCE | | | Source | by [facility] [address], | | SACRED | | | | [place] [address] | | HEART | | | |Performed by [facility] [address], [place] [address] | | MEDICAL | | | | [...] + + | AMILCAR CARDONA | [address] | [place] [address] | | | [facility] | | | | | [...] - 1.030 | PROVIDENCE | | | Pooler | | | SACRED | | | [...] | | | SOURCE | Performed by [facility] [address] | | SACRED | | | | [address] [place] | | HEART | | | | [address] | | MEDICAL | | | | [...] + + | AMILCAR CARDONA | [address] | [place] [address] | | | [facility] | | | | [...] | | | POC | Performed by [facility] [address] | | SACRED | | | | [place] | | HEART | | | | [address] | | MEDICAL | | | | [...] | [address] | [place] [address] | | | [facility] | | | | | [...] | | | | | seconds.Performed by [facility] | | | | | | [address], | | | | | | [place] [address] | | | | + + + + + + + + | Specimen | + + | Blood specimen | | (specimen) | + + + + + + + | Performing | Address | City/State/Zipcode | Phone Number | | Organization | | | | + + + + + | [facility] | [address] | [place] [address] | | | [facility] | | | | [...] | | MEDICAL | | | | [facility] [address], | | CENTER | | | | [place] [address] | | LABORATORY | | | | [...] + | AMILCAR CARDONA | [address] | [place] [address] | | | [facility] | | | | | [...] CENTER | | | | 3.5Performed by [facility] 101 | | LABORATORY | | | | [address] [place] | | [place] | | | | [address] | | | | + + + + + + + + | Specimen | + + | Blood specimen | | (specimen) | + + + + + + + | Performing | Address | City/State/Zipcode | Phone Number | | Organization | | | | + + + + + | AMILCAR CARDONA | [address] | [place] [address] | | | [facility] | | | | | [...] | | | POC | Performed by [facility] [address] | | SACRED | [...] [address] | [place] [address] | | | HEART [facility] | | | | | LABORATORY [...] test | | | | | | ([id number]).Performed At: | | | | | | [facility] [id number] | | | | | | [address] | | | | | | [place], [place] | | | | | | [id number] Daniel | | | | | | Riya MOJICA Ph:[phone] | | | | + + + + + + + + | Specimen | + + | Blood specimen | | (specimen) | + + + + + + + | Performing | Address | City/State/Zipcode | Phone Number | | Organization | | | | + + + + + | YARELISDEMIKarly CARDONA | [address] | [place] [address] | | | [facility] | | | | | [...] | | | | | seconds.Performed by [facility] | | | | | | [address], | | | | | | [place] [address] | | | | + + + + + + + + | Specimen | + + | Blood specimen | | (specimen) | + + + + + + + | Performing | Address | City/State/Zipcode | Phone Number | | Organization | | | | + + + + + | AMILCAR CARDONA | [address] | [place] [address] | | | [facility] | | | | | [...] | TRACEMASTER | | Duration:152 msP Horizontal [place]:32 degP Front [place]:62 degQ Onset:512 | | | msQRSD Interval:110 msQT Interval:416 msQTcB:453 msQTcF:440 msQRS | | | Horizontal [place]:199 degQRS [place]:-83 degI-40 Horizontal [place]:77 degI-40 | | | Front [place]:-74 degT-40 Horizontal [place]:242 degT-40 Front [place]:216 | | | degT Horizontal [place]:84 degT Wave [place]:69 degS-T Horizontal [place]:97 | | | degS-T Front [place]:107 degSeverity:- ABNORMAL ECG -INTERP:SINUS | | | RHYTHMINTERP:NONSPECIFIC IVCD WITH LADINTERP:INFERIOR INFARCT, | | | OLDElectronically signed by: ELIZABETH CAMPBELL 06-12-2018 11:24:19 | | |QTcB:453 ms | | |QTcF:440 ms | | |QRS Horizontal [place]:199 deg | | |QRS [place]:-83 deg | | |I-40 Horizontal [place]:77 deg | | |I-40 Front [place]:-74 deg | | |T-40 Horizontal [place]:242 deg | | |T-40 Front [place]:216 deg | | |T Horizontal [place]:84 deg | | |T Wave [place]:69 deg | | |S-T Horizontal [place]:97 deg | | |S-T Front [place]:107 deg | | |Severity:- ABNORMAL ECG - | | |INTERP:SINUS RHYTHM | | |INTERP:NONSPECIFIC IVCD WITH LAD | | |INTERP:INFERIOR INFARCT, OLD | | |Electronically signed by: ELIAZBETH CAMPBELL 06-12-2018 11:24:19 | | + + + + + + + + | Performing | Address | City/State/Zipcode | Phone Number | | Organization | | | | + + + + + | SARITHA REY | [address] | [place] [address] | [phone] | + + + + + Pulmonary [...] | | | | | seconds.Performed by [facility] | | | | | | [address], | | | | | | [place] [address] | | | | + + + + + + + + | Specimen | + + | Blood specimen | | (specimen) | + + + + + + + | Performing | Address | City/State/Zipcode | Phone Number | | Organization | | | | + + + + + | AMILCAR [facility]ED | [address] | [place] [address] | | | [facility] | | | | | [...] test | | | | | | ([id number]).Performed At: | | | | | | [facility] [id number] | | | | | | [address] | | | | | | [place], [place] | | | | | | [id number] Daniel | | | | | | L Ph:[phone] | | | | + + + [...] + + | PROVIDEDEMIE [facility]ED | [address] | [place] [address] | | | [facility] | | | | | [...] | | | | | formula.Performed by [facility] | | | | | | [address], | | | | | | [place] [address] | | | | + + + + + + + + | Specimen | + + | Blood specimen | | (specimen) | + + + + + + + | Performing | Address | City/State/Zipcode | Phone Number | | Organization | | | | + + + + + | AMILCAR CARDONA | [address] | [place] [address] | | | [facility] | | | | | [...] | | | | | | [facility] | | | | | | [facility] | | | | | | [facility] | | | | | | [facility] | | | | | | [facility] | | + + + + + + | Rh Type | Negative | | REFERENCE | | | | | | [facility] | | | | [facility] | [facility] | | | | | [facility] | | | | | | [facility] | | | | | | [facility] | | + + + + + + + + | Specimen | + + | | + + + + + | Narrative | Performed At | + + + | Specimen Expiration Date: [id number] | [facility] | | | [facility] | | | [facility] | | | [facility] | + + + + + + + + | Performing | Address | City/State/Zipcode | Phone Number | | Organization | | | | + + + + + | [facility] | [address] | [place] [address] | [phone] | | [facility] | | | | | [facility] [...] | | Screen | | | [facility] | | [facility] | [facility] | | | | [facility] | | | | | | [facility] | | | | | | [facility] | | + + + + + + + + | Specimen | + + | | + + + + + | Narrative | Performed At | + + + | Specimen Expiration Date: [id number] | [facility] | | | [facility] | | | [facility] | | | [facility] | + + + + + + + + | Performing | Address | City/State/Zipcode | Phone Number | | Organization | | | | + + + + + | [facility] | [address] | [place] [address] | [phone] | | [facility] | | | | | [facility] [...] | | | | | | [facility] | | | | | | [facility] | | | | | [facility] | | | | | | [facility] | | | | | | [facility] | | + + + + + + + + | Specimen | + + | | + + + + + | Narrative | Performed At | + + + | Specimen Expiration Date: [id number] | [facility] | | | [facility] | | | [facility] | | [facility] | + + + + + + + + | Performing | Address | City/State/Zipcode | Phone Number | | Organization | | | | + + + + + | [facility] | [address] | [place] [address] | [phone] | | [facility] | | | | | [facility] [...] | | | | | | [facility] | | | [facility] | | [facility] | | | | [facility] | | | | | | [facility] | | | | | | [facility] | | + + + + + + | Rh Type | Negative | | REFERENCE | | | | | | [facility] | | | | [facility] | | | | | | [facility] | | | | | | [facility] | | + + + + + + | Antibody | Positive | | REFERENCE | | | Screen | | | [facility] | | | | | | [facility] [...] + + + | Specimen Expiration Date: [id number] | RE[facility] | | | [place] | | | [facility] | | [facility] | + + + + + + + + | Performing | Address | City/State/Zipcode | Phone Number | | Organization | | | | + + + + + | REFERENCE LAB | [address] | [place] [address] | [phone] | | [place] | | | | | [facility] [...] | | | | | seconds.Performed by [facility] | | | | | | [address], | | | | | | [place] [address] | | | | + + + + + + + + | Specimen | + + | Blood specimen | | (specimen) | + + + + + + + | Performing | Address | City/State/Zipcode | Phone Number | | Organization | | | | + + + + + | [facility] | [address] 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 4. Mild destinee infarct ischemia. LARGE SEVERE inferior and | | | Lateral MN. 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 | | Duration:176 msP Horizontal [place]:19 degP Front [place]:70 degQ Onset:512 | | | msQRSD Interval:110 msQT Interval:444 msQTcB:480 msQTcF:467 msQRS | | | Horizontal [place]:157 degQRS [place]:-77 degI-40 Horizontal [place]:75 degI-40 | | | Front [place]:-59 degT-40 Horizontal [place]:240 degT-40 Front [place]:267 | | | degT Horizontal [place]:91 degT Wave [place]:68 degS-T Horizontal [place]:98 | | | degS-T Front [place]:103 degSeverity:- ABNORMAL ECG -INTERP:SINUS | | | RHYTHMINTERP:NONSPECIFIC IVCD WITH LADINTERP:INFERIOR INFARCT, | | | OLDElectronically signed by: ELIZABETH CAMPBELL 06-12-2018 11:25:24 | | |QTcB:480 ms | | |QTcF:467 ms | | |QRS Horizontal [place]:157 deg | | |QRS [place]:-77 deg | | |I-40 Horizontal [place]:75 deg | | |I-40 Front [place]:-59 deg | | |T-40 Horizontal [place]:240 deg | | |T-40 Front [place]:267 deg | | |T Horizontal [place]:91 deg | | |T Wave [place]:68 deg | | |S-T Horizontal [place]:98 deg | | |S-T Front [place]:103 deg | | |Severity:- ABNORMAL ECG - [...] + | [facility] | [address] | [place] [address] | [phone] | + + + + + Magnesium (06/09/2018 3:07 AM PDT) + + + +--------- ----+ + | Component | Value | Ref Range | Performe d | Pathologist | | | | | At | Signature | + + + +--------- ----+ + | Magnesium | 2.1Comment: Performed | 1.7 - 2.4 mg/dL | [facility] | | | | by [facility] [address], | | SACRED | | | | [place] [address] | | HEART | | | |Performed by [facility] [address], [place] [address] | | MEDICAL | | | | [...] SACRED | [address] | [place] [address] | | | [facility] | | | | | [...] ENCE | | | Basophils | by [facility] [address], | K/uL | SACRED | | | | [place] [address] | | HEART | | | |Performed by [facility] [address], [place] [address] | | MEDICA L | | | [...] + + | [facility] | [address] | [place] [address] | | | [facility] | [...] | | MEDICAL | | | | [facility] [address], | | CENTER | | | | [place] [address] | | LABORATORY | | | | [...] [facility] | [address] | [place] [address] | | | [facility] | | | | | [...] | | | | | TroponinPerformed by [facility] | | | | | | [address], | | | | | | [place] [address] | | | | + + + + + + + + | Specimen | + + | Blood specimen | | (specimen) | + + + + + + + | Performing | Address | City/State/Zipcode | Phone Number | | Organization | | | | + + + + + | [facility] | [address] | [place] [address] | | | [facility] | | | | | [...] | TRACEMASTER | | Duration:200 msP Horizontal [place]:19 degP Front [place]:58 degQ Onset:512 | | | msQRSD Interval:110 msQT Interval:404 msQTcB:506 msQTcF:469 msQRS | | | Horizontal [place]:184 degQRS [place]:265 degI-40 Horizontal [place]:78 degI-40 | | | Front [place]:269 degT-40 Horizontal [place]:240 degT-40 Front [place]:259 | | | degT Horizontal [place]:77 degT Wave [place]:63 degS-T Horizontal [place]:83 | | | degS-T Front [place]:99 degSeverity:- ABNORMAL ECG -INTERP:SINUS | | | RHYTHMINTERP:NONSPECIFIC IVCD WITH LADINTERP:INFERIOR INFARCT, | | | OLDElectronically signed by: ELIZABETH CAMPBELL 06-12-2018 11:24:43 | | |QTcB:506 ms | | |QTcF:469 ms | | |QRS Horizontal [place]:184 deg | | |QRS [place]:265 deg | | |I-40 Horizontal [place]:78 deg | | |I-40 Front [place]:269 deg | | |T-40 Horizontal [place]:240 deg | | |T-40 Front [place]:259 deg | | |T Horizontal [place]:77 deg | | |T Wave [place]:63 deg | | |S-T Horizontal [place]:83 deg | | |S-T Front [place]:99 deg | | |Severity:- ABNORMAL ECG - [...] + + | [facility] | [address] | [place] [address] | [phone] | + + + + + Troponin [...] by | | | | | | [facility] [address], | | | | | | [place] [address] | | | | + + + + + + + + | Specimen | + + | Blood specimen | | (specimen) | + + + + + + + | Performing | Address | City/State/Zipcode | Phone Number | | Organization | | | | + + + + + | [facility] | [address] | [place] [address] | | | [facility] | | | | | [...] [facility] | | | | by [facility] [address], | | SACRED | | | | [place] [address] | | HEART | | | |Performed by [facility] [address], [place] [address] | | MEDICAL | | | | [...] + | [facility] | [address] | [place] [address] | | | [facility] | | | | | [...] | | MEDICAL | | | | [facility] [address], | | CENTER | | | | [place] [address] | | LABORATORY | | | | [...] [facility] | [address] | [place] [address] | | | [facility] | | | | | [...] | | | | | TroponinPerformed by [facility] | | | | | | [address], | | | | | | [place] [address] | | | | + + + + + + + + | Specimen | + + | Blood specimen | | (specimen) | + + + + + + + | Performing | Address | City/State/Zipcode | Phone Number | | Organization | | | | + + + + + | [facility] | [address] | [place] [address] | | | [facility] | | | | | [...] by | | | | | | [facility] [address], | | | | | | [place] [address] | | | | + + + + + + + + | Specimen | + + | Blood specimen | | (specimen) | + + + + + + + | Performing | Address | City/State/Zipcode | Phone Number | | Organization | | | | + + + + + | [facility] | [address] | [place] [address] | | | [facility] | | | | | [...] [facility] | | | | Performed by [facility] [address] | | SACRED | | | | [address] [place] | | HEART | | | | [address] | | MEDICAL | | | | [...] + + | [facility] | [address] | [place] [address] | | | [facility] | | | | | [...] | | | | | battery.Performed by [facility] | | | | | | [address], | | | | | | [place] [address] | | | | + + + + + + + + | Specimen | + + | Urine specimen | | (specimen) | + + + + + + + | Performing | Address | City/State/Zipcode | Phone Number | | Organization | | | | + + + + + | [facility] | [address] | [place] [address] | | | [facility] | | | | | [...] | | | | | [place].Performed by [facility] [address] | | | | | | [address] [place] | | | | | | [address] | | | | + + + + + + + + | Specimen | + + | Blood specimen | | (specimen) | + + + + + + + | Performing | Address | City/State/Zipcode | Phone Number | | Organization | | | | + + + + + | [facility] | [address] | [place] [address] | | | [facility] | | | | | [...] [facility] | | | SERUM | [facility] [address], | | SACRED | | | | [place] [address] | | HEART | | | |Performed by [facility] [address], [place] [address] | | MEDICAL | | | | [...] + | [facility] | [address] | [place] [address] | | | [facility] | | | | | [...] U/L | [facility] | | | | [facility] [address], | | SACRED | | | | [place] [address] | | HEART | | | |Performed by [facility] [address], [place] [address] | | MEDICAL | | | | [...] + | [facility] | [address] | [place] [address] | | | HEART [facility] | | | | | LABORATORY [...] | | MEDICAL | | | | [facility] [address], | | CENTER | | | | [place] [address] | | LABORATORY | | | | [...] + + | [facility] | [address] | [place] [address] | | | [facility] | | | | | [...] ENCE | | | Basophils | by [facility] [address], | K/uL | SACRED | | | | [place] [address] | | HEART | | | |Performed by [facility] [address], [place] [address] | | MEDICA L | | | [...] + + | [facility] | [address] | [place] | | | [facility] | [...] | [facility] | | | | by [facility] [address], | | SACRED | | | | [place] | | HEART | | | |Performed by [facility] [address], [place] | | MEDICAL | | | [...] + | [facility] | [address] | [place] [address] | | | [facility] | | | | | [...] U/L | [facility] | | | | [facility] [address], | | SACRED | | | | [place] [address] | | HEART | | | |Performed by [facility] [address] [place] [address] | | MEDICAL | | | [...] + + | [facility] | [address] | [place] [address] | | | [facility] | | | | | [...] - 1.030 | [facility] | | | Pooler | | | SACRED | | | [...] | | | SOURCE | Performed by [facility] [address] | | SACRED | | | | [address] [place] | | HEART | | | | [address] | | MEDICAL | | | | [...] + + | [facility] | [address] | [place] [address] | | | [facility] | | | | | [...] PDT | | | | | Starting [facility] 06/11/18 at 1635, | | | [...] PDT | | | | | Starting [facility] 06/11/18 at 1635, | | | [...]
--- OUTSIDE RECORDS SUMMARY | ~2019-09-08 | XMS | Encounter Summary ---
Demographics + + + | Address | [address] | | | [place] [address] | + + + | Home Phone [...] | [facility] | | | and Ankitana | + + + | Organization | [facility] | [...] Team Providers + +------+ + | Care Shank Threader Name | Role | Phone | + [...] + + | 02/26/ | Telephone | [facility] | [facility] | Hospital Follow-up | | 2014 | | Internal Medicine | [facility] | | | | | [facility] [address] | | | [address] [place] [address] | | | | | | [address] | | | | | | [phone] | | | +--------+ + + + [...] | | | | | | [place] [address] | | | | | | [phone] | | | | | | | | +--------+---------+ + + + documented as of this encounter Visit Diagnoses Not on filedocumented in this encounter"
--- OUTSIDE RECORDS SUMMARY | ~2019-09-08 | XMS | Encounter Summary ---
Demographics + + + | Address | [address] | | | [place] [address] | + + + | Home Phone [...] Author | [facility] | | | and Ankitana | + + + | Organization | [facility] | | | and [...] Team Providers + +------+ + | Care Cashier Supervisor Name | Role | Phone | [...] | | | | | [place] | [address] | | | | | [place] | | | | | | [address] | | | | | | [phone] | | | +--------+ + + + [...] | | | | | | [place] [address] | | | | | | [phone] | | | | | | | | +--------+---------+ + + + documented as of this encounter Visit Diagnoses Not on filedocumented in this encounter"
--- OUTSIDE RECORDS SUMMARY | ~2019-09-08 | XMS | Encounter Summary ---
Demographics + + + | Address | [address] | | | [place] [address] | + + + | Home Phone [...] Author | [facility] | | | and Ankitana | + + + | Organization | [facility] | | | and Ankitana [...] Providers + +------+ + | Care Drum Plater Name | Role | Phone | + [...] | INTRA OP [address] | [facility] [address] | | | | | [address] [place], [place] | [place] [address] | | | | | [address] | [phone] | | | | | [phone] | | | +--------+---------+ + + + [...] Pharmacist notified and gave patient number for [facility] pharmacy to transfer medications in AM. Given night time pain medications prior to leaving . The AVS was reviewed with patient and family with no pending questions or concerns. All b elongings were collected from the room and sent with the family. The pt is discharging home with family in [place]. New FWW sent with patient. No further questions and all teaching demo nstrated back to RN. Plan for d/c at 1800 when family arrives. Juancho Dalal AR NP - 06/15/2018 12:01 PM PDT [facility] Discharge [...] precauti ons. She was recently released from prison before arriving at the ER and our group social worker has confirmed that she is [...] and occupational therapy for post-op rehab. - [facility]. Disposition: Home with family. Patient was advised to call our office or their steel fitter with any questions. Follow-Up: Follow-up Information SALVATORE Ventura. Go on 06/23/2018. Specialty: Nurse Practitioner Why: Hospital follow up scheduled at 11:[address] Roa Contact information: [address] [facility] [address] Hemanth Webster MD. Schedule an appointment as soon as possible for a visit on 06/29/2018 . Specialty: Cardiothoracic Surgery Why: 11:30 AM Contact information: [address], [place] [address] [facility] [address] Schedule an appointment as soon as possible for a visit with [facility]. Why: Please call to schedule your 1 month follow-up with cardiology. Contact information: [address] [place] [address] [facility] [address] Time spent on discharge planning: greater than 30 minutes CABG Checklist ACEI/ARB/ARNI prescribed: No - Hypotension Aspirin prescribed: Not addressed Beta mateus (evidence-based) prescribed: Yes Beta mateus prescribed: N/A - LV EF is less than 41% High intensity statin prescribed: Yes Referral to cardiac rehab: Yes Tobacco cessation counseling provided: Yes [facility] [address], [address] [place] [address] Portions of this chart may have been created with Senseware voice recognition software. Occasi onal wrong-word or sound-alike substitutions may have occurred due to the inherent meyers itations of voice recognition software. Please read the chart carefully and recognize, using context, where these substitutions have occurred. Patient Care Team: SALVATORE Ventura as PCP - General (Nurse Practitioner) Mani Schneider MD as Physician (Cardiology) documented in this encounter Discharge Instructions Instructions uJancho Greco ARNP - 06/15/2018 Who to Call: 1. For swelling in your legs, or feeling more short of breath, please call [facility] at [phone]. 2. For problems or concerns with your incision or your chest, please call [facility]Surgery) at [phone]. After Coronary Artery Bypass Surgery When you [...] by medication, call your healthcare pr ovider. [phone] [facility], [address] [place] [address], [place] [address]. All rights reserve d. This information is [...] | | | | | | infarction) ([facility]), | | | | | | | Polysubstance abuse | | | | | | | ([facility]) | | | | | [...] bedside. Pt states she was brought to [facility] by [facility] but states she is no l onger in custody. No guards at the door. RIZWANA Butt Sawyer suggested SW contact prison to confirm. RIZWANA spoke with [facility] who confirms pt was released. RIZWANA spoke with pt regarding discharge plan. Pt plans to discharge to friend's home. SW available should further discharg e planning needs arise. Keith Lopez MD - 06/15/2018 8:45 AM PDT [facility] PATIENT NAME: Smitha Fletcher : 1955: AGE: [...] dilol. 2. Follow-up requested. Keith Harp MD, [facility] Portions of this chart were created with Senseware voice recognition software. Occasional wro ng-word or "sound-alike" substitutions may have occurred due to the inherent limitations of voice recognition software. Please read the chart carefully and recognize, using context, w here those substitutions have occurred. eonte Lee MD - 06/15/2018 7:15 AM PDTFormatting of this no te might be different from the original. [facility] Pt. Name/Age/: Smitha Fletcher 62 y.o. 1955 Med. Record Number: [id number] Date of admission: 06/07/2018 POD # 4 Procedure: CABG X 3 Surgeon: Eleanor Subjective New complaints: poor sternal precautions. No c/o this morning. Acknowledges that came from [facility]. Not sure where she is going. No [...] signed by: Hector Decker PA-C Cardiothoracic Surgery [facility] [address], [address] [place], [place] [id number] 06/15/2018 7:15 [facility] Agree with detailed plan nicely outlined by Hector Ashley Moreland MSW - 06/14/2018 1:05 PM PDTSOCIAL WORK PLAN: TBD INTERVENTION: SW acknowledged order for return to prison. Pt came from prison per chart review and may have to go back there upon DC. SW will continue to follow for DC planning. Frandy Estrada ARNP - 06/14/2018 9:11 AM PDTBlood Glucose log reviewed. Patient is stable, with control led blood glucose. Not requiring insulin Diabetes Service will sign off. Medication Reconciliation for diabetes medications has been completed. Please contact us at [phone] should the need arise. Thank you for [...] signed by: Rip Yao M.D. CardioThoracic Surgery [facility] 06/14/2018 9:23 [facility] Pt. Name/Age/: Smitha Fletcher 62 y.o. 1955 Med. Record Number: [id number] Date of admission: 06/07/2018 POD # 3 [...] with the patient is going. Willl have group social worker start arrangements. Problem List Patient [...] signed by: Hector Decker PA-C Cardiothoracic Surgery [facility] [address], [place] [address] [place] [address] 06/14/2018 8:59 [facility] Dave Hill MD - 06/14/2018 8:07 AM PDT [facility] PATIENT NAME: Smitha Fletcher : 1955: AGE: [...] Portions of this chart were created with Senseware voice recognition software. Occasional wro ng-word or [...] Per RN; she will be discharging from [facility] to prison that she came from. Assessment for glucose [...] by: SALVATORE Elias 06/13/2018 14:53 Diabetes team, [facility] [phone] Amaury Hill MD - 06/13/2018 10:27 AM PDTFormatting of this note might be different from the origi nal. [facility] PATIENT NAME: Smitha Fletcher : 1955: AGE: [...] Portions of this chart were created with Senseware voice recognition software. Occasional wro ng-word or [...] signed by: Rip Yao M.D. CardioThoracic Surgery [facility] 06/13/2018 9:35 [facility] Pt. Name/Age/: Smitha Fletcher 62 y.o. 1955 Med. Record Number: [id number] Date of admission: 06/07/2018 POD #2 Procedure: [...] signed by: Hector Decker PA-C Cardiothoracic Surgery [facility] [address], [address] [place] [address] 06/13/2018 8:11 [facility] Kezia Downing RN - 06/12/2018 3:10 PM [...] discharge planning. ASSESSMENT/CHART REVIEW: Pt resides in [place]. She has Medicare coverage. COPD, is risk for readmission. If pt d oes not need placement she may benefit from home health post acute care. D/C TRANSPORT: TBD BARRIERS TO D/C: Medical stability CONTACTS: Hanna Sethi: [phone] signed by JEFFY Cabrales at 06/12/2018 1 2:24 PM Dave Hill MD - 06/12/2018 11:33 AM PDTFormatting of this note might b e different from the original. [facility] PATIENT NAME: Smitha Fletcher : 1955: AGE: [...] 1.0 0.4 - 1.5 % Comment PS8 VRC911 O2 Content, Arterial 15.7 15.0 - 23.0 [...] 22:29 Result Value Ref Range Product Code Y7156T49 UNIT # [id number] UNIT ABO O UNIT RH NEG CROSSMATCH INTERP Compatible Unit Status XM Blood Product Expiration Date and Time Product Blood Type Barcode 9500 Product Code L6877D73 UNIT # [id number] UNIT ABO O UNIT RH NEG CROSSMATCH INTERP Compatible Unit Status IS Blood Product Expiration Date and Time 294638782163 Product Blood Type Barcode 9500 Blood Gas, [...] 6:53 Result Value Ref Range Product Code H0823O43 UNIT # [id number] UNIT ABO O UNIT RH NEG CROSSMATCH INTERP Compatible Unit Status XM Blood Product Expiration Date and Time 634418481767 Product Blood Type Barcode 9500 POC Glucose [...] Duvall MD - 06/12/2018 10:12 AM PDT [facility] Hemanth Webster [...] Date of Service: 06/10/2018 PCP: Yolanda Lee [facility] Hospital Day: 1 Hospital Course: This is a 62 y.o.femalewith hx substance abuse, [place] and stent [place] [address] Brittnee Sandoval cardiology. She was brought from prison, complaining of severe 8-9/10 burning chest pain [...] - Single Lumen 06/10/18 1446 Right Forearm qfcq-iqd-ygycgk catheter sys tem 22 gauge;1 in length [...] - 99 mg/dL Final Comment: Performed by [facility] [address] [place] [address] All pertinent labs and imaging have been [...] this chart may have been created with Senseware voice recognition software. Occasi onal wrong-word or sound-alike substitutions may have occurred due to the inherent meyers itations of voice recognition software. Please read the chart carefully and recognize, using context, where these substitutions have occurred Brenna Henderson, Ri dical Student - 06/10/2018 11:05 AM PDTFormatting [...] TTE 06/08/18 showed LVEF of 45% with cqnqrjvp-yk-fajnyw hypokinesis of lateral and inferio r castillo. [...] dependence and incarce ration that presented from prison with severe left sided chest pain that [...] r educational purposes. Please refer to attending/resident/physician payroll assistant/nurse practit ioner note regarding further patient [...] TTE on 018 revealed LVEF = 45%, qwvarede-jz-qterqo hypokinesis of lateral and inferior castillo, julian [...] nicotine dependence and incarceration pres ented from prison w/ severe, burning, substernal chest pain w/ radiation to left shoulder and associated nausea and vomiting. Workup in ED revealed troponin elevation (peak 0.311 this admission) and patient was admitt ed for further workup and management w/ cardiology. Labs in ED also revealed UDS positive fo r amphetamine, methamphetamine, benzodiazepines and opiates. TTE revealed LVEF = 45%, dcxubbpq-rx-ejhuiu hypokinesis of lateral and inferior castillo, mitr [...] Date of Service: 06/09/2018 PCP: SALVATORE Ventura [facility] Day: 0 Hospital Course: This is a 62 y.o.femalewith hx substance abuse, [place] and stent [place] [address] Sandoval cardiology. She was brought from prison, complaining of severe 8-10 burning chest pain [...] Single Lumen 06/09/18 0836 Left Distal Forearm tzcj-rzn-rljump cathet er system 20 gauge;1 1/4 in [...] this chart may have been created with Senseware voice recognition software. Occasi onal wrong-word or [...] TTE on 018 revealed LVEF = 45%, jsakrtmv-fs-hoolkp hypokinesis of lateral and inferior castillo, julian [...] nicotine dependence and incarceration pres ented from prison w/ severe, burning, substernal chest pain w/ radiation to left shoulder and associated nausea and vomiting. Workup in ED revealed troponin elevation (peak 0.311 this admission) and patient was admitt ed for further workup and management w/ cardiology. Labs in ED also revealed UDS positive fo r amphetamine, methamphetamine, benzodiazepines and opiates. TTE revealed LVEF = 45%, ycegdmcu-pc-eikusv hypokinesis of lateral and inferior castillo, mitr [...] Date of Service: 06/08/2018 PCP: SALVATORE Ventura [facility] Day: 0 Hospital Course: This is a 62 y.o. female with hx substance abuse, [place] and stent [place] [address] Riya banuelos cardiology. She was brought from prison, complaining on sever -06/15 burning chest pain [...] 06/07/18 1545 Right Anterior (palmar);Medial Forearm ove k-rfb-ivcqlt catheter system 20 gauge;other (see comments) 1 [...] this chart may have been created with Senseware voice recognition software. Occasi onal wrong-word or [...] and person. Normal affect. Signed by: Shad Scuhler MD 06/08/2018, 10:22 Portions of this chart were created with Senseware voice recognition software. Occasional wro ng-word or "sound-alike" substitutions may have occurred due to the inherent limitations of voice recognition software. Please read the chart carefully and recognize, using context, w here those substitutions have occurred.Electronically signed by Shad Schuler MD at 06/08 10:27 AM Rhiannon Irene RN - 06/07/2018 3:09 PM [id number] arrived to floor. Somu nlent. Asking very [...] | | | | | | [place] [address] | | | | | | [phone] | | | | | | | [...] | | | | | | infarction) ([facility]) | | + +------+--------+ + [...] | | | | | | infarction) ([facility]) | | + + +--------+ [...] [facility] | | | | Performed by [facility] [address] | [address]CR[address] | | | | [address] [place] | | HEART | | | | [address] | | MEDICAL | | | | [...] SACRED | [address] | [place] [address] | | | [facility] | | | | | LABORATORY [...] | | MEDICAL | | | | [facility] [address], | | CENTER | | | | [place] [address] | | LABORATORY | | | | [...] + + | [facility] | [address] | [place] [address] | | | [facility] | | | | | [facility] [...] + + | Performing | Address | City/State/[facility] | Phone Number | [...] + + + + | Product | [id number] | | REFERENCE | | | Code | | | LAB [place] | | | | | | [facility] | | | | | | [facility] | | | | | | [facility] | | | | | | CENTER | | + + + + + + | UNIT # | [id number] | | REFERENCE | | | | | | LAB [place] | | | | | | [place] | | | | | | [facility] | | | | | | BLOOD | | | | | | CENTER | | + + + + + + | UNIT ABO | O | | REFERENCE | | | | | | LAB [place] | | | | | | [place] | | | | | | [facility] | | | | | | BLOOD | | | | | | CENTER | | + + + + + + | UNIT RH | NEG | | REFERENCE | | | | | | LAB [place] | | | | | | [facility] | | | | | | [facility] | | | | | | BLOOD | | | | | | CENTER | | + + + + + + | CROSSMATCH | Compatible | | REFERENCE | | | INTERP | | | LAB [place] | | | | | | [facility] | | | | | | [facility] | | | | | | BLOOD | | | | | | CENTER | | + + + + + + | Unit Status | RE | | REFERENCE | | | | | | LAB [place] | | | | | | [facility] | | | | | | [facility] | | | | | | BLOOD | | | | | | CENTER | | + + + + + + | Blood | [id number] | | REFERENCE | | | Product | | | LAB [place] | | | Expiration | | | [facility] | | | Date and | | | [facility] | | | Time | | | BLOOD | | | | | | CENTER | | + + + + + + | Product | [id number] | | REFERENCE | | | Blood Type | | | [facility] [place] | | | Barcode | | | [...] + + + | Specimen Expiration Date: [id number] | REFERENCE LAB | | | [place] [facility] | | | [facility] | | | [facility] | + + + + + + + + | Performing | Address | City/State/Zipcode | Phone Number | | Organization | | | | + + + + + | REFERENCE LAB | [address] | [place] [address] | [phone] | | [place] [facility] | | | | | [facility] [...] | | | POC | Performed by [facility] [address] | | SACRED | | | | [address], [place] | | HEART | | | | [address] | | MEDICAL | | | | [...] + + | [facility] | [address] | [place] [address] | | | [facility]ART [facility] [...] + + + + | Product | [id number] | | REFERENCE | | | Code | | | [facility] [place] | | | | | | [facility] | | | | | | [facility] | | | | | | BLOOD | | | | | | CENTER | | + + + + + + | UNIT # | [id number] | | REFERENCE | | | | | | [facility] [place] | | | | | | [facility] | | | | | | [facility] | | | | | | BLOOD | | | | | | CENTER | | + + + + + + | UNIT ABO | O | | REFERENCE | | | | | | [facility] [place] | | | | | | [facility] | | | | | | [facility] | | | | | | BLOOD | | | | | | CENTER | | + + + + + + | UNIT RH | NEG | | REFERENCE | | | | | | [facility] [place] | | | | | | [facility] | | | | | | [facility] | | | | | | BLOOD | | | | | | CENTER | | + + + + + + | CROSSMATCH | Compatible | | REFERENCE | | | INTERP | | | [facility] [place] | | | | | | [facility] | | | | | | [facility] | | | | | | BLOOD | | | | | | CENTER | | + + + + + + | Unit Status | IS | | REFERENCE | | | | | | [facility] [place] | | | | | | [facility] | | | | | | [facility] | | | | | | BLOOD | | | | | | CENTER | | + + + + + + | Blood | [id number] | | REFERENCE | | | Product | | | [facility] [place] | | | Expiration | | | [facility] | | | Date and | | | [facility] | | | Time | | | BLOOD | | | | | | CENTER | | + + + + + + | Product | [id number] | | REFERENCE | | | Blood Type | | | LAB [place] | | | Barcode | | | [facility] | | | | | | [facility] | | | | | | BLOOD | | | | | | CENTER | | + + + + + + | Product | [id number] | | REFERENCE | | | Code | | | [facility] [place] | | | | | | [facility] | | | | | | [facility] | | | | | | BLOOD | | | | | | CENTER | | + + + + + + | UNIT # | [id number] | | REFERENCE | | | | | | [facility] [place] | | | | | | [facility] | | | | | | [facility] | | | | | | BLOOD | | | | | | CENTER | | + + + + + + | UNIT ABO | O | | REFERENCE | | | | | | [facility] [place] | | | | | | [facility] | | | | | | [facility] | | | | | | BLOOD | | | | | | CENTER | | + + + + + + | UNIT RH | NEG | | REFERENCE | | | | | | [facility] [place] | | | | | | [facility] | | | | | | [facility] | | | | | | BLOOD | | | | | | CENTER | | + + + + + + | CROSSMATCH | Compatible | | REFERENCE | | | INTERP | | | LAB [place] | | | | | | [facility] | | | | | | [facility] | | | | | | BLOOD | | | | | | CENTER | | + + + + + + | Unit Status | IS | | REFERENCE | | | | | | [facility] [place] | | | | | | [facility] | | | | | | [facility] | | | | | | BLOOD | | | | | | CENTER | | + + + + + + | Blood | [id number] | | REFERENCE | | | Product | | | LAB [place] | | | Expiration | | | [facility] | | | Date and | | | [facility] | | | Time | | | BLOOD | | | | | | CENTER | | + + + + + + | Product | [id number] | | REFERENCE | | | Blood Type | | | LAB [place] | | | Barcode | | | [...] + + + | Specimen Expiration Date: [id number] | REFERENCE LAB | | | [facility] [facility] | | | [facility] | | | [facility] C[facility] | + + + + + + + + | Performing | Address | City/State/Zipcode | Phone Number | | Organization | | | | + + + + + | REFERENCE LAB | [address] | [place] [address] | [phone] | | [place] [facility] | | | | | [facility] [...] | | | POC | Performed by [facility] [address] | | SACRED | [...] | [place] | | | [facility]ART [facility] [...] | | | POC | Performed by [facility] [address] | | SACRED | | | | [address] [place] | | HEART | | | | [address] | | MEDICAL | | | | [...] + | [facility] | [address] | [place] [address] | | | [facility] | | | | | LABORATORY [...] | | | POC | Performed by [facility] [address] | | SACRED | [...] | [place] | | | [facility]ART [facility] [...] | | | POC | Performed by [facility] [address] | | SACRED | | | | [address] [place] | | HEART | | | | [address] | | MEDICAL | | | | [...] [address] | [place] [address] | | | [facility] | | | | | LABORATORY [...] | | | POC | Performed by [facility] [address] | | SACRED | [...] | | | POC | Performed by [facility] [address] | | SACRED | | | | [address] [place] | | HEART | | | | [address] | | MEDICAL | | | | [...] + + | AM[facility] CARDONA | [address] | [place] [address] | | | [facility] | | | | | LABORATORY [...] [facility] | | | | Performed by [facility] [address] | | SACRED | [...] SACRED | [address] | [place] [address] | | | [facility]ART [facility] [...] | | MEDICAL | | | | [facility] [address], | | CENTER | | | | [place] [address] | | LABORATORY | | | | [...] + | [facility] SACRED | [address] | [place] [address] | | | [facility] | | | | | [...] | | | POC | Performed by [facility] [address] | | SACRED | | | | [address], [place] | | HEART | | | | [address] | | MEDICAL | | | | [...] + + | YARELISDEMIKarly BRENDAN | [address] | [place] [address] | | | [facility] | | | | | RIVERA [...] | | | POC | Performed by [facility] [address] | | SACRED | | | | [address] [place] | | HEART | | | | [address] | | MEDICAL | | | | [...] + | [facility] SACRED | [address] | [place] [address] | | | [facility] | | | | | LABORATORY [...] | | | POC | Performed by [facility] [address] | | SACRED | | | | [address], [place] | | HEART | | | | [address] | | MEDICAL | | | | [...] + + | YARELISCARLOS CARDONA | [address] | [place] [address] | | | [facility] | | | | | RIVERA [...] | | | POC | Performed by [facility] [address] | | SACRED | | | | [address] [place] | | HEART | | | | [address] | | MEDICAL | | | | [...] + | PROVIDEDEMIE SACRED | [address] | [place] [address] | | | [facility] | | | | | LABORATORY [...] | | | POC | Performed by [facility] [address] | | SACRED | | | | [address], [place] | | HEART | | | | [address] | | MEDICAL | | | | [...] + + | YARELISCARLOS CARDONA | [address] | [place] [address] | | | [facility] | | | | | LABORATORY [...] | PROVIDENCE | | | POC | [facility] [address], | | SACRED | | | | [place] [address] | | HEART | | | |Performed by [facility] [address], [place] [address] | | MEDICAL | | | | [...] + | AMILCAR CARDONA | [address] | [place] [address] | | | [facility] | | | | | LABORATORY [...] | | | POC | Performed by [facility] [address] | | SACRED | [...] [address] | [place] [address] | | | [facility] [...] | PROVIDENCE | | | POC | [facility] [address], | | SACRED | | | | [place] [address] | | HEART | | | |Performed by [facility] [address], [place] [address] | | MEDICAL | | | | [...] + + | AMILCAR CARDONA | [address] | [place] [address] | | | [facility] | | | | | RIVERA [...] | PROVIDENCE | | | POC | [facility] [address], | | SACRED | | | | [place] [address] | | HEART | | | |Performed by [facility] [address], [place] [address] | | MEDICAL | | | | [...] + + | AMILCAR CARDONA | [address] | [place] [address] | | | [facility] | | | | | RIVER[facility] [...] | TRACEMASTER | | Duration:184 msP Horizontal Black:5 degP Front Black:55 degQ Onset:508 | | | msQRSD Interval:104 msQT Interval:452 msQTcB:452 msQTcF:452 msQRS | | | Horizontal Black:129 degQRS Black:-53 degI-40 Horizontal Black:77 degI-40 | | | Front Black:-44 degT-40 Horizontal Black:204 degT-40 Front Black:-83 | | | degT Horizontal Black:95 degT Wave Black:39 degS-T Horizontal Black:79 | | | degS-T Front Black:49 degSeverity:- ABNORMAL ECG -INTERP:SINUS | | | RHYTHMINTERP:CONSIDER RIGHT VENTRICULAR HYPERTROPHYINTERP:PROBABLE | | | INFERIOR INFARCT, AGE INDETERMINATEINTERP:BORDERLINE ST ELEVATION, | | | ANTERIOR LEADSElectronically signed by: ELIZABETH CAMPBELL 06-12-2018 | | | 07:37:14 | | |QRS Horizontal Black:129 deg | | |QRS Black:-53 deg | | |I-40 Horizontal Black:77 deg | | |I-40 Front Black:-44 deg | | |T-40 Horizontal Black:204 deg | | |T-40 Front Black:-83 deg | | |T Horizontal Black:95 deg | | |T Wave Black:39 deg | | |S-T Horizontal Black:79 deg | | |S-T Front Black:49 deg | | |Severity:- ABNORMAL ECG - [...] + | WAMT TRACEMASTER | [address] | [place] [address] | [phone] | + + + + + CBC [...] [facility] | | | | Performed by [facility] [address] | | SACRED | | | | [address], [place] | | HEART | | | | [address] | | MEDICAL | | | | [...] [address] | [place] [address] | | | [facility] | [...] | | MEDICAL | | | | [facility] [address] | | [place] | | | | [place] [address] | | LABORATORY | | | | [...] [address] | [place] [address] | | | [facility] | | | | | LABORATORY [...] | | | POC | Performed by [facility] [address] | | SACRFAUSTO | | | | [address], [place] | | HEART | | | | [address] | | MEDICAL | | | | [...] + + | AMILCAR CARDONA | [address] | [place] [address] | | | [facility] | | | | | LABORATORY [...] | [facility] | | | POC | [facility] [address], | | SACRED | | | | [place] [address] | | HEART | | | |Performed by [facility] [address], [place] [address] | | MEDICAL | | | | [...] [address] | [place] [address] | | | [facility] | | | | | RIVERA [...] | | | POC | Performed by [facility] [address] | | [place] | | | | [place], [place] | | HEART | | | | [address] | | MEDICAL | | | | [...] + + | AMILCAR SACRFAUSTO | [address] | [place] [address] | | | [facility] | [...] | | | POC | Performed by [facility] [address] | | SACRED | | | | [address] [place], [place] | | HEART | | | | [address] | | MEDICAL | | | | [...] [address] | [place] [address] | | | [facility] | | | | | LABORATORY [...] [facility] | | | | Performed by [facility] [address] | mmol/L | SACRED | | | | [place] | | HEART | | | | [address] | | MEDICAL | | | | [...] SACRFAUSTO | [address] | [place] [address] | | | [facility] | [...] [facility] | | | | Performed by [facility] [address] | | SACRED | | | | [address] [place], [place] | | HEART | | | | [address] | | MEDICAL | | | | [...] + | AMILCAR CARDONA | [address] | [place] [address] | | | [facility] | | | | | RIVERA [...] CE | | | ARTERIAL | by [facility] [address], | | SACRED | | | | [place] | | HEART | | | |Performed by [facility] [address], [place] | | MEDICAL | | | [...] [address] | [place] [address] | | | [facility]ART [facility] [...] | | | POC | Performed by [facility] [address] | | SACRED | | | | [address] [place] | | HEART | | | | [address] | | MEDICAL | | | | [...] + | AMILCAR CARDONA | [address] | [place] [address] | | | [facility] | | | | | LABORATORY [...] | | | POC | Performed by [facility] [address] | | SACRED | | | | [address], [place] | | HEART | | | | [address] | | MEDICAL | | | | [...] [address] | [place] [address] | | | [facility] | [...] | [facility] | | | | by [facility] [address], | mmol/L | SACRED | | | | [place] | | HEART | | | |Performed by [facility] [address], [place] | | MEDICAL | | | [...] + + | YARELISDEMIKarly BRENDAN | [address] | [place] [address] | | | [facility] | | | | | RIVERA [...] | | | POC | Performed by [facility] [address] | | SACRED | | | | [address] [place] | | HEART | | | | [address] | | MEDICAL | | | | [...] + + | AMILCAR CARDONA | [address] | [place] [address] | | | [facility] | | | | | LABORATORY [...] | TRACEMASTER | | Duration:180 msP Horizontal Black:-10 degP Front Black:68 degQ Onset:512 | | | msQRSD Interval:110 msQT Interval:444 msQTcB:486 msQTcF:472 msQRS | | | Horizontal Black:112 degQRS Black:-63 degI-40 Horizontal Black:100 | | | degI-40 Front Black:-58 degT-40 Horizontal Black: degT-40 Front Black:160 | | | degT Horizontal Black:104 degT Wave Black:-11 degS-T Horizontal | | | Black:104 degS-T Front Black:32 degSeverity:- ABNORMAL ECG -INTERP:SINUS | | | RHYTHMINTERP:PROBABLE LEFT ATRIAL ABNORMALITYINTERP:NONSPECIFIC IVCD | | | WITH LADINTERP:INFERIOR INFARCT, AGE INDETERMINATEINTERP:LATERAL | | | INFARCT, OLDElectronically signed by: ELIZABETH CAMPBELL 06-12-2018 | | | 11:18:02 | | |QRS Horizontal Black:112 deg | | |QRS Black:-63 deg | | |I-40 Horizontal Black:100 deg | | |I-40 Front Black:-58 deg | | |T-40 Horizontal Black: deg | | |T-40 Front Black:160 deg | | |T Horizontal Black:104 deg | | |T Wave Black:-11 deg | | |S-T Horizontal Black:104 deg | | |S-T Front Black:32 deg | | |Severity:- ABNORMAL ECG - [...] + | WAMT TRACEMASTER | [address] | [place] [address] | [phone] | + + + + + PTT [...] | | | | | seconds.Performed by [facility] | | | | | | [address], | | | | | | [place] [address] | | | | + + + + + + + + | Specimen | + + | Blood specimen | | (specimen) | + + + + + + + | Performing | Address | City/State/Zipcode | Phone Number | | Organization | | | | + + + + + | [facility] | [address] | [place] [address] | | | [facility] | [...] | | | | to 3.5Performed by [facility] | | LABORATORY | | | | [address] [place], | | [place] | | | | [place] [address] | | | | + + + + + + + + | Specimen | + + | Blood specimen | | (specimen) | + + + + + + + | Performing | Address | City/State/Zipcode | Phone Number | | Organization | | | | + + + + + | [facility] | [address] | [place] [address] | | | [facility] | | | | | [...] | | MEDICAL | | | | [facility] [address], | | CENTER | | | | [place] [address] | | LABORATORY | | | | [...] + + | PROVIDEDEMIE [facility] | [address] | [place] [address] | | | [facility] | | | | | LABORATORY [...] [facility]ENCE | | | | Performed by [facility] [address] | | SACRED | | | | [address] [place] | | HEART | | | | [address] | | MEDICAL | | | | [...] + + | AMILCAR CARDONA | [address] | [place] [address] | | | [facility] | | | | | RIVERA [...] [facility]ENCE | | | Arterial | by [facility] [address], | mmol/L | SACRED | | | | [place] [address] | | HEART | | | |Performed by [facility] [address], [place] [address] | | MEDICAL | | | | [...] + | AMILCAR CARDONA | [address] | [place] [address] | | | [facility] | | | | | LABORATORY [...] E | | | Normalized | by [place] [address], | mg/dL | SACRED | | | | [place] [address] | | HEART | | | |Performed by [place] [address], [place] [address] | | MEDICAL | | | | [...] + | AMILCAR CARDONA | [address] | [place] [address] | | | [facility] | | | | | LABORATORY [...] AMILCAR | | | | Performed by [facility] [address] | | SACRED | | | | [address], [place] | | HEART | | | | [address] | | MEDICAL | | | | [...] [address] | [place] [address] | | | [facility] | [...] +--------- ----+ + | Comment | [id number] | | PROVIDEN CE | | | [...] CE | | | ARTERIAL | by [facility] [address], | | SACRED | | | | [place] [address] | | HEART | | | |Performed by [facility] [address], [place] [address] | | MEDICAL | | | | [...] + + | AMILCAR CARDONA | [address] | [place] [address] | | | [facility] | | | | | LABORATORY [...] | | | Arterial | Performed by [facility] [address] | mmol/L | SACRED | | | | [address] [place] | | HEART | | | | [address] | | MEDICAL | | | | [...] + | AMILCAR CARDONA | [address] | [place] [address] | | | [facility] | | | | | LABORATORY [...] PROVIDEN CE | | | | by [facility] [address], | mmol/L | SACRED | | | | [place] [address] | | HEART | | | |Performed by [facility] [address], [place] [address] | | MEDICAL | | | | [...] + | AMILCAR CARDONA | [address] | [place] [address] | | | [facility] | | | | | LABORATORY [...] | | | | | seconds.Performed by [facility] | | | | | | [address], | | | | | | [place] [address] | | | | + + + + + + + + | Specimen | + + | Blood specimen | | (specimen) | + + + + + + + | Performing | Address | City/State/Zipcode | Phone Number | | Organization | | | | + + + + + | [facility] | [address] | [place] [address] | | | [facility] | | | | | LABORATORY [...] | | | Arterial | Performed by [facility] [address] | mmol/L | SACRED | | | | [address], [place] | | HEART | | | | [address] | | MEDICAL | | | | [...] + + | AMILCAR CARDONA | [address] | [place] [address] | | | [facility] | | | | | RIVERA [...] PROVIDEN CE | | | | by [facility] [address], | mmol/L | SACRED | | | | [place] [address] | | HEART | | | |Performed by [facility] [address], [place] [address] | | MEDICAL | | | | [...] + | AMILCAR CARDONA | [address] | [place] [address] | | | [facility] | | | | | LABORATORY [...] [facility]ENCE | | | Arterial | by [facility] [address], | mmol/L | SACRED | | | | [place] [address] | | HEART | | | |Performed by [facility] [address], [place] [address] | | MEDICAL | | | | [...] + + | AMILCAR [facility] | [address] | [place] [address] | | | [facility] | | | | | [...] [facility] | | | | Performed by [facility] [address] | | SACRED | | | | [address] [place] | | HEART | | | | [address] | | MEDICAL | | | | [...] + + | AMILCAR CARDONA | [address] | [place] [address] | | | [facility] [...] [facility] | | | Arterial | by [facility] [address], | mmol/L | SACRED | | | | [place] [address] | | HEART | | | |Performed by [facility] [address], [place] [address] | | MEDICAL | | | | [...] + + | YARELISCARLOS MATAMOROSFAUSTO | [address] | [place] [address] | | | [facility] | | | | | LABORATORY [...] [facility] | | | | Performed by [facility] [address] | | SACRED | | | | [address] [place] | | HEART | | | | [address] | | MEDICAL | | | | [...] + | AMILCAR CARDONA | [address] | [place] [address] | | | 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 Visible portions of ascending aorta | | | and arch normal. Grade 2atherosclerotic disease of descending aorta.9. | | | Pulmonary artery riaruh30. Normal pericardium. No pericardial fluid. | | [...] Number 270 | | ZIYAD Patient Number [id number] Date of Study 06/11/2018 Visit | | Number [id number] Interpreting Sharad | | MD Jose Manuel Number Physician Date of 1955 | | Referring Physician ELEANOR MARTIN Age 62 year(s) | | Civil Service Worker Sanjeev Bradshaw, | | MD Sharad Richard [...] of descending | | aorta.9. Pulmonary artery qdasbl14. Normal pericardium. No pericardial fluid. No pleural [...] [facility] | | | Arterial | by [facility] [address], | mmol/L | SACRED | | | | [place] [address] | | HEART | | | |Performed by [facility] [address], [place] [address] | | MEDICAL | | | | [...] + + | YARELISDEMIKarly CARDONA | [address] | [place] [address] | | | [facility] | | | | | LABORATORY [...] | | | Normalized | Performed by [facility] [address] | mg/dL | SACRED | | | | [address] [place] | | HEART | | | | [address] | | MEDICAL | | | | [...] + | AMILCAR CARDONA | [address] | [place] [address] | | | [facility] | | | | | LABORATORY [...] [facility] | | | Arterial | by [facility] [address], | mmol/L | SACRED | | | | [place] [address] | | HEART | | | |Performed by [facility] [address], [place] [address] | | MEDICAL | | | | [...] + + | [facility] | [address] | [place] [address] | | | [facility] | [...] [facility] | | | | Performed by [facility] [address] | mmol/L | SACRED | | | | [address] [place] | | HEART | | | | [address] | | MEDICAL | | | | [...] [address] | [place] [address] | | | [facility] | | | | | LABORATORY [...] | | | | | | LAB [place] | | | | | | [facility] | | | | | | [facility] | | | | | | [facility] | | | | | | [facility] | | + + + + + + | Rh Type | Negative | | REFERENCE | | | | | | LAB [place] | | | | | | [place] [...] + + + | Specimen Expiration Date: [id number] | REFERENCE LAB | | | [place] | | | [facility] | | | [facility] | + + + + + + + + | Performing | Address | City/State/Zipcode | Phone Number | | Organization | | | | + + + + + | REFERENCE LAB | [address] | [place] [address] | [phone] | | [place] | | | | | [facility] [...] | | | POC | Performed by [facility] [address] | | SACRED | | | | [address], [place], [place] | | HEART | | | | [address] | | MEDICAL | | | | [...] SACRED | [address] | [place] [address] | | | [facility] | [...] CENTER | | | | 3.5Performed by [facility] 101 | | LABORATORY | | | | [address], [place] | | [place] | | | | [address] | | | | + + + + + + + + | Specimen | + + | Blood specimen | | (specimen) | + + + + + + + | Performing | Address | City/State/Zipcode | Phone Number | | Organization | | | | + + + + + | AMILCAR CARDONA | [address] | [place] [address] | | | [facility] | | | | | LABORATORY [...] [facility]ENCE | | | | Performed by [facility] [address] | | SACRED | | | | [address] [place] | | HEART | | | | [address] | | MEDICAL | | | | [...] SACRED | [address] | [place] [address] | | | [facility] [...] | | MEDICAL | | | | [facility] [address], | | CENTER | | | | [place] [address] | | LABORATORY | | | | [...] + + | AMILCAR CARDONA | [address] | [place] [address] | | | [facility] | | | | | LABORATORY [...] | | | | | seconds.Performed by [facility] | | | | | | [address], | | | | | | [place] [address] | | | | + + + + + + + + | Specimen | + + | Blood specimen | | (specimen) | + + + + + + + | Performing | Address | City/State/Zipcode | Phone Number | | Organization | | | | + + + + + | [facility] | [address] | [place] [address] | | | [facility] | | | | | LABORATORY [...] [facility] | | | Source | by [facility] [address], | | SACRED | | | | [place] [address] | | HEART | | | |Performed by [facility] [address], [place] [address] | | MEDICAL | | | | [...] + + | [facility] | [address] | [place] [address] | | | [facility] | | | | | LABORATORY [...] - 1.030 | [facility] | | | [place] | | | SACRED | | | [...] | | | SOURCE | Performed by [facility] [address] | | SACRED | | | | [address] [place] | | HEART | | | | [address] | | MEDICAL | | | | [...] + + | YARELISCARLOS CARDONA | [address] | [place] [address] | | | [facility] | | | | | LABORATORY [...] | | | POC | Performed by [facility] [address] | | SACRED | | | | [address], [place] | | HEART | | | | [address] | | MEDICAL | | | | [...] [address] | [place] [address] | | | [facility] | [...] | | | | | seconds.Performed by [facility] | | | | | | [address], | | | | | | [place] [address] | | | | + + + + + + + + | Specimen | + + | Blood specimen | | (specimen) | + + + + + + + | Performing | Address | City/State/Zipcode | Phone Number | | Organization | | | | + + + + + | [facility] | [address] | [place] [address] | | | [facility] | | | | | RIVERA [...] | | MEDICAL | | | | [facility] [address], | | CENTER | | | | [place] [address] | | LABORATORY | | | | [...] + + | [facility] | [address] | [place] [address] | | | [facility] | | | | | [...] CENTER | | | | 3.5Performed by [facility] [address] | | LABORATORY | | | | [address], [place], [place] | | [place] | | | | [address] | | | | + + + + + + + + | Specimen | + + | Blood specimen | | (specimen) | + + + + + + + | Performing | Address | City/State/Zipcode | Phone Number | | Organization | | | | + + + + + | [facility] | [address] | [place] [address] | | | [facility] | | | | | LABORATORY [...] | | | POC | Performed by [facility] [address] | | SACRED | | | | [address] [place] | | HEART | | | | [address] | | MEDICAL | | | | [...] + + | YARELISCARLOS CARDONA | [address] | [place] [address] | | | [facility] | | | | | LABORATORY [...] | | | | | | The [facility] recommends | | | | | | that a positive HCV | | | | | | antibody result be | | | | | | followed up with a HCV | | | | | | Nucleic Acid | | | | | | Amplification test | | | | | | ([id number]).Performed At: | | | | | | [facility] | | | | | | [facility] [address] | | | | | | [place], [place] | | | | | | [phone] Daniel | | | | | | L Ph:[phone] | | | | + + + + + + + + | Specimen | + + | Blood specimen | | (specimen) | + + + + + + + | Performing | Address | City/State/Zipcode | Phone Number | | Organization | | | | + + + + + | [facility] | [address] | [place] [address] | | | [facility] | | | | | LABORATORY [...] | | | | | seconds.Performed by [facility] | | | | | | [address], | | | | | | [place] [address] | | | | + + + + + + + + | Specimen | + + | Blood specimen | | (specimen) | + + + + + + + | Performing | Address | City/State/Zipcode | Phone Number | | Organization | | | | + + + + + | [facility] | [address] | [place] [address] | | | [facility] | | | | | LABORATORY [facility] | | | | + + + + + ECG 12 lead (06/10/2018 12:10 PM PDT) + + | Specimen | + + | | + + + + + | Narrative | Performed At | + + + | HEART RATE:71 | [facility] | | bpmRR Interval:845 msAtrial Rate:71 msP-R Interval:148 msP | TRAC[facility]ASTER | | Duration:152 msP Horizontal Black:32 degP Front Black:62 degQ Onset:512 | | | msQRSD Interval:110 msQT Interval:416 msQTcB:453 msQTcF:440 msQRS | | | Horizontal Black:199 degQRS Black:-83 degI-40 Horizontal Black:77 degI-40 | | | Front Black:-74 degT-40 Horizontal Black:242 degT-40 Front Black:216 | | | degT Horizontal Black:84 degT Wave Black:69 degS-T Horizontal Black:97 | | | degS-T Front Black:107 degSeverity:- ABNORMAL ECG -INTERP:SINUS | | | RHYTHMINTERP:NONSPECIFIC IVCD WITH LADINTERP:INFERIOR INFARCT, | | | OLDElectronically signed by: ELIZABETH CAMPBELL 06-12-2018 11:24:19 | | |QTcB:453 ms | | |QTcF:440 ms | | |QRS Horizontal Black:199 deg | | |QRS Black:-83 deg | | |I-40 Horizontal Black:77 deg | | |I-40 Front Black:-74 deg | | |T-40 Horizontal Black:242 deg | | |T-40 Front Black:216 deg | | |T Horizontal Black:84 deg | | |T Wave Black:69 deg | | |S-T Horizontal Black:97 deg | | |S-T Front Black:107 deg | | |Severity:- ABNORMAL ECG - | | |INTERP:SINUS RHYTHM | | |INTERP:NONSPECIFIC IVCD WITH LAD | | |INTERP:INFERIOR INFARCT, OLD | | |Electronically signed by: ELIZABETH CAMPBELL 06-12-2018 11:24:19 | | + + + + + + + + | Performing | Address | City/State/Zipcode | Phone Number | | Organization | | | | + + + + + | [facility] | [address] | [place] [address] | [phone] | + + + + + Pulmonary [...] | | | | | seconds.Performed by [facility] | | | | | | [address], | | | | | | [place] [address] | | | | + + + + + + + + | Specimen | + + | Blood specimen | | (specimen) | + + + + + + + | Performing | Address | City/State/Zipcode | Phone Number | | Organization | | | | + + + + + | YARELISDEMIKarly C[facility] | [address] | [place] [address] | | | [facility] | | | | | RIVERA [...] | | | | | | The [facility] recommends | | | | | | that a positive HCV | | | | | | antibody result be | | | | | | followed up with a HCV | | | | | | Nucleic Acid | | | | | | Amplification test | | | | | | ([id number]).Performed At: | | | | | | [id number] | | | | | | [address] | | | | | | [place], [place] | | | | | | [id number] Daniel | | | | | | L MD Ph:[phone] | | | | + + + [...] + + | AMILCAR CARDONA | [address] | [place] [address] | | | [facility] | | | | | [facility] [...] | | | | | formula.Performed by [facility] | | | | | | [address], | | | | | | [place] [address] | | | | + + + + + + + + | Specimen | + + | Blood specimen | | (specimen) | + + + + + + + | Performing | Address | City/State/Zipcode | Phone Number | | Organization | | | | + + + + + | AMILCAR CARDONA | [address] | [place] [address] | | | [facility] | | | | | [facility] [...] | | | | | | LAB [place] | | | | | | [facility] | | | | | | [facility] | | | | | | [facility] | | | | | | [facility] | | + + + + + + | Rh Type | Negative | | REFERENCE | | | | | | LAB [place] | | | | | | [facility] | | | | | | [facility] | | | | | | [facility] | | | | | | [facility] | | + + + + + + + + | Specimen | + + | | + + + + + | Narrative | Performed At | + + + | Specimen Expiration Date: [id number] | [facility] | | | [place] | | | [facility] | | | [facility] | + + + + + + + + | Performing | Address | City/State/Zipcode | Phone Number | | Organization | | | | + + + + + | [facility] | [address] | [place] [address] | [phone] | | [place] | | | | | [facility] [...] | | Screen | | | [facility] [place] | | | | | | [facility] | | | | | | [facility] | | | | | | [facility] | | | | | | [facility] | | + + + + + + + + | Specimen | + + | | + + + + + | Narrative | Performed At | + + + | Specimen Expiration Date: [id number] | [facility] | | | [place] | | | [facility] | | | [facility] | + + + + + + + + | Performing | Address | City/State/Zipcode | Phone Number | | Organization | | | | + + + + + | [facility] | [address] | [place] [address] | [phone] | | [place] | | | | | [facility] [...] | | | | | | [facility] [place] | | | | | | [facility] | | | | | | [facility] | | | | | | [facility] | | | | | | CENTER | | + + + + + + + + | Specimen | + + | | + + + + + | Narrative | Performed At | + + + | Specimen Expiration Date: [id number] | REFERENCE LAB | | | [facility] | | | [facility] | | [facility] | + + + + + + + + | Performing | Address | City/State/Zipcode | Phone Number | | Organization | | | | + + + + + | REFERENCE LAB | [address] | [place] [address] | [phone] | | [facility] | | | | | [facility] [...] | | | | | | [facility] | | [facility] | | | | | | [facility] | | | | | | [facility] | | | | | | [facility] | | + + + + + + | Rh Type | Negative | | REFERENCE | | | | | | LAB [facility] | [facility] | | | | | | [facility] | | | | | | [facility] | | | | | | [facility] | | + + + + + + | Antibody | Positive | | REFERENCE | | | Screen | | | LAB [facility] | | | | | | [facility] [...] + + + | Specimen Expiration Date: [id number] | REFERENCE LAB | | | [facility] | | | [facility] | | | [facility] | + + + + + + + + | Performing | Address | City/State/Zipcode | Phone Number | | Organization | | | | + + + + + | REFERENCE LAB | [address] | [place] [address] | [phone] | | [facility] | | | | | [facility] [...] | | | | | seconds.Performed by [facility] | | | | | | [address], | | | | | | [place] [address] | | | | + + + + + + + + | Specimen | + + | Blood specimen | | (specimen) | + + + + + + + | Performing | Address | City/State/Zipcode | Phone Number | | Organization | | | | + + + + + | AMILCAR CARDONA | [address] | [place] [address] | | | [facility] | | | | | LABORATORY [...] | proximal 40% LAD, 95% ostial septal communications technician, 70% mid and distal LAD, 100% [...] LAD, 95% | | | ostial septal communications technician, 70% mid and distal LAD, 100% [...] | TRACEMASTER | | Duration:176 msP Horizontal Black:19 degP Front Black:70 degQ Onset:512 | | | msQRSD Interval:110 msQT Interval:444 msQTcB:480 msQTcF:467 msQRS | | | Horizontal Black:157 degQRS Black:-77 degI-40 Horizontal Black:75 degI-40 | | | Front Black:-59 degT-40 Horizontal Black:240 degT-40 Front Black:267 | | | degT Horizontal Black:91 degT Wave Black:68 degS-T Horizontal Black:98 | | | degS-T Front Black:103 degSeverity:- ABNORMAL ECG -INTERP:SINUS | | | RHYTHMINTERP:NONSPECIFIC IVCD WITH LADINTERP:INFERIOR INFARCT, | | | OLDElectronically signed by: ELIZABETH CAMPBELL 06-12-2018 11:25:24 | | |QTcB:480 ms | | |QTcF:467 ms | | |QRS Horizontal Black:157 deg | | |QRS Black:-77 deg | | |I-40 Horizontal Black:75 deg | | |I-40 Front Black:-59 deg | | |T-40 Horizontal Black:240 deg | | |T-40 Front Black:267 deg | | |T Horizontal Black:91 deg | | |T Wave Black:68 deg | | |S-T Horizontal Black:98 deg | | |S-T Front Black:103 deg | | |Severity:- ABNORMAL ECG - [...] + + | SARITHA REY | [address] | [place] [address] | [phone] | + + + + + Magnesium (06/09/2018 3:07 AM PDT) + + + +--------- ----+ + | Component | Value | Ref Range | Performe d | Pathologist | | | | | At | Signature | + + + +--------- ----+ + | Magnesium | 2.1Comment: Performed | 1.7 - 2.4 mg/dL | [facility] | | | | by [facility] [address], | | SACRED | | | | [place] [address] | | HEART | | | |Performed by [facility] [address], [place] [address] | | MEDICAL | | | | [...] + + | AMILCAR CARDONA | [address] | [place] [address] | | | [facility] | | | | | RIVERA [...] ENCE | | | Basophils | by [place] [address], | [place] | SACRED | | | | [place] [address] | | HEART | | | |Performed by [facility] [address], [place] [address] | | MEDICA L | | | [...] + + | AMILCAR CARDONA | [address] | [place] [address] | | | [facility] | | | | | LABORATORY [...] | | MEDICAL | | | | [facility] [address], | | CENTER | | | | [place] [address] | | LABORATORY | | | | [...] + + | AMILCAR CARDONA | [address] | [place] [address] | | | [facility] | | | | | LABORATORY [...] + + | Performing | Address | City/State/[facility] | Phone Number | [...] | | | | | TroponinPerformed by [facility] | | | | | | [address], | | | | | | [place] [address] | | | | + + + + + + + + | Specimen | + + | Blood specimen | | (specimen) | + + + + + + + | Performing | Address | City/State/Zipcode | Phone Number | | Organization | | | | + + + + + | AMILCAR CARDONA | [address] | [place] [address] | | | [facility] | | | | | LABORATORY [...] | TRACEMASTER | | Duration:200 msP Horizontal Black:19 degP Front Black:58 degQ Onset:512 | | | msQRSD Interval:110 msQT Interval:404 msQTcB:506 msQTcF:469 msQRS | | | Horizontal Black:184 degQRS Black:265 degI-40 Horizontal Black:78 degI-40 | | | Front Black:269 degT-40 Horizontal Black:240 degT-40 Front Black:259 | | | degT Horizontal Black:77 degT Wave Black:63 degS-T Horizontal Black:83 | | | degS-T Front Black:99 degSeverity:- ABNORMAL ECG -INTERP:SINUS | | | RHYTHMINTERP:NONSPECIFIC IVCD WITH LADINTERP:INFERIOR INFARCT, | | | OLDElectronically signed by: ELIZABETH CAMPBELL 06-12-2018 11:24:43 | | |QTcB:506 ms | | |QTcF:469 ms | | |QRS Horizontal Black:184 deg | | |QRS Black:265 deg | | |I-40 Horizontal Black:78 deg | | |I-40 Front Black:269 deg | | |T-40 Horizontal Black:240 deg | | |T-40 Front Black:259 deg | | |T Horizontal Black:77 deg | | |T Wave Black:63 deg | | |S-T Horizontal Black:83 deg | | |S-T Front Black:99 deg | | |Severity:- ABNORMAL ECG - [...] + + | SARITHA REY | [address] | [place] [address] | [phone] | + + + + + Troponin [...] by | | | | | | [facility] [address], | | | | | | [place] [address] | | | | + + + + + + + + | Specimen | + + | Blood specimen | | (specimen) | + + + + + + + | Performing | Address | City/State/Zipcode | Phone Number | | Organization | | | | + + + + + | YARELISCARLOS CARDONA | [address] | [place] [address] | | | [facility] | | | | | LABORATORY [...] PROVIDEN CE | | | | by [facility] [address], | | SACRED | | | | [place] [address] | | HEART | | | |Performed by [facility] [address], [place] [address] | | MEDICAL | | | | [...] + | [facility] | [address] | [place] [address] | | | [facility] | | | | | [...] | | MEDICAL | | | | [facility] [address], | | CENTER | | | | [place] [address] | | LABORATORY | | | | [...] + + | [facility] | [address] | [place] [address] | | | [facility] | | | | | LABORATORY [...] | | MATTI Herrera at [address] | | MEDICAL | | | | [...] | | | | | TroponinPerformed by [facility] | | | | | | [address], | | | | | | [place] [address] | | | | + + + + + + + + | Specimen | + + | Blood specimen | | (specimen) | + + + + + + + | Performing | Address | City/State/Zipcode | Phone Number | | Organization | | | | + + + + + | AMILCAR CARDONA | [address] | [place] [address] | | | [facility] | | | | | RIVERA [...] by | | | | | | [facility] [address], | | | | | | [place] [address] | | | | + + + + + + + + | Specimen | + + | Blood specimen | | (specimen) | + + + + + + + | Performing | Address | City/State/Zipcode | Phone Number | | Organization | | | | + + + + + | AMILCAR CARDONA | [address] | [place] [address] | | | [facility] | | | | | LABORATORY [...] PROVIDENCE | | | | Performed by [facility] [address] | | SACRED | | | | [address] [place] | | HEART | | | | [address] | | MEDICAL | | | | [...] + + | AMILCAR CARDONA | [address] | [place] [address] | | | [facility] | | | | | LABORATORY [...] | | | | | battery.Performed by [facility] | | | | | | [address], | | | | | | [place] [address] | | | | + + + + + + + + | Specimen | + + | Urine specimen | | (specimen) | + + + + + + + | Performing | Address | City/State/Zipcode | Phone Number | | Organization | | | | + + + + + | AMILCAR CARDONA | [address] | [place] [address] | | | [facility] | | | | | LABORATORY [...] | | | | | [place].Performed by [facility] [address] | | | | | [address] [place] | | | | | | [address] | | | | + + + + + + + + | Specimen | + + | Blood specimen | | (specimen) | + + + + + + + | Performing | Address | City/State/Zipcode | Phone Number | | Organization | | | | + + + + + | AMILCAR CARDONA | [address] | [place] [address] | | | [facility] | | | | | RIVERA [...] YIN E | | | SERUM | [facility] [address], | | SACRED | | | | [place], [place] | | HEART | | | |Performed by [facility] [address], [place] | | MEDICAL | | | [...] SACRED | [address] | [place], [place] | | | [facility] | | | | | [...] U/L | PROVIDEDEMIE | | | | [facility] [address], | | SACRED | | | | [place] [address] | | HEART | | | |Performed by [facility] [address], [place] [address] | | MEDICAL | | | | [...] + + | AMILCAR CARDONA | [address] | [place] [address] | | | [facility] | | | | | RIVERA [...] | | MEDICAL | | | | [facility] [address], | | CENTER | | | | [place] [address] | | LABORATORY | | | | [...] + + | [facility]EL[facility]CARLOS [facility] | [address] | [place] [address] | | | [facility] | | | | | [...] ENCE | | | Basophils | by [facility] [address], | [place] | SACRED | | | | [place] [address] | | HEART | | | |Performed by [facility] [address], [place] [address] | | MEDICA L | | | [...] + + | AMILCAR CARDONA | [address] | [place] [address] | | | [facility] | | | | | LABORATORY [...] | [facility] | | | | by [facility] [address], | | SACRED | | | | [place] [address] | | HEART | | | |Performed by [facility] [address], [place] [address] | | MEDICAL | | | | [...] + | AMILCAR CARDONA | [address] | [place] [address] | | | [facility] | | | | | RIVERA [...] U/L | [facility] | | | | [facility] [address], | | SACRED | | | | [place] | | HEART | | | |Performed by [facility] [address], [place] | | MEDICAL | | | [...] + + | [facility] | [address] | [place], [place] | | | [facility] [...] - 1.030 | [facility] | | | [place] | | | SACRED | | | [...] | | | SOURCE | Performed by [facility] [address] | | SACRED | | | | [place] | | HEART | | | | [address] | | MEDICAL | | | | [...] + + | AMILCAR CARDONA | [address] | [place] [address] | | | [facility] | | | | | RIVERA [...] of unspecified type of | | vessel, [place] or graft | + + documented in [...] | | First dose on [facility] 06/11/18 at 2100 | | PM [...] | | | | Starting [facility] 06/11/18 at 1635, | | | [...]
--- OUTSIDE RECORDS SUMMARY | ~2019-09-08 | XMS | Encounter Summary ---
Demographics + + + | Address | [address] | | | [place] [address] | + + + | Home Phone [...] + | Author | [facility] | | | and Ankitana | + + + | Organization | [facility] | | | and Ankitana [...] Team Providers + +------+ + | Care Quality Controller Name | Role | Phone | + +------+ + | [place] | PCP | | [...] + + | 03/20/ | Office | [facility] | Wendy Verma | Odontalgia (Primary | | 2013 | Visit | Division [facility] | MD Marcus [address] | Dx) | | | | [address] | DIVISION [place], | | | | | [place], [place] | [place] [address] | | | | | [address] | [phone] | | | | | | | [...] [place], | | | | | | [place] [address] | | | | | | [phone] | | | | | | | | +--------+---------+ + + + documented as of this encounter Visit Diagnoses + + | Diagnosis | + + | Odontalgia - Primary Unspecified disorder of the teeth and supporting structures | + + documented in this encounter
--- OUTSIDE RECORDS SUMMARY | ~2019-09-08 | XMS | Encounter Summary ---
Demographics + + + | Address | [address] | | | [place] [address] | + + + | Home Phone [...] Author | [facility] | | | and Ankitana | + + + | Organization | [facility] [...] Team Providers + +------+ + | Care Labor Economist Name | Role | Phone | + [...] [place] | | | | | | [address] | [phone] | | | | | | Phone: | Phone: | | | | | | [phone] | [phone] | | | | | | Fax: | Fax: | | | | | | [phone] | [phone] | +--------+ + + + + + [...] | | | | | (non-ST | DAM OPERATOR [address] | | | | | | elevated | [address] | | | | | | myocardial | [place], | | | | | | infarction) | [place] | | | | | | ([facility]) | Phone: | | | | | | Procedures | [phone] | | | | | | DME: Walker | Fax: | | | | | | | [phone] | | +--------+--------+ + + + + [...] | Required | n | (non-ST | DAM OPERATOR [address] | REHABILITATIO | | | | | elevated | [address] | [address] | | | | | myocardial | [place], | [place] | | | | | infarction) | [place] | [place] | | | | | ([facility]) | Phone: | [address] | | | | | | [phone] | Phone: | | | | | | Fax: | [phone] | | | | | | [phone] | Fax: | | | | | | | [phone] | +--------+ + + + + + [...] | | | | | ([facility]) | | | | | | | [...] | | | | | ([facility]) | | | | | | | [...] + + | 06/07/ | Hospital | [facility] | [place], | S/P CABG x 3 | | 2018 - | Encounter | [facility] | [address] | (Primary Dx); NSTEMI | | | | CARDIAC TRANSPLANT | [place] [address] | (non-ST elevated | | 06/15/ | | [address] | [phone] | myocardial | | 2018 | | [place] | | infarction) (HCC); | | | | [address] | PefEmma chase MD | Methamphetamine | | | | [phone] | [address], | abuse; Opiate abuse, | | | | | 9th floor [place], | continuous; | | | | | [place] [address] | Marijuana abuse; | | | | | [phone] | Non-intractable | | | | | | cyclical vomiting | | | | | Michael Olson MD [address] | with nausea; | | | | | [address] | Esophagitis; Chest | | | | | FLOOR [place] | pain syndrome; [facility]SHD | | | | | [address] | (arteriosclerotic | | | | | | heart disease); | | | | | Friendshuh, Kathie, | Essential | | | | | [address] | hypertension; | | | | | [address]VE [place] | Methamphetamine use; | | | | | [address] | Marijuana use; | | | | | | Troponin level | | | | | Hemanth Webster | elevated; Ischemic | | | | | MD Veronica [address] | cardiomyopathy; | | | | | [address] [place] | Chronic GERD; | | | | | [address] | Elevated troponin | | | | [...] Pharmacist notified and gave patient number for [facility] pharmacy to transfer medications in AM. [...] 1800 when family arrives. Juancho Dalal AR BRANCH SALES MANAGER - 06/15/2018 12:01 PM PDT [facility] [...] precauti ons. She was recently released from group home before arriving at the ER and our foster care social worker has confirmed that she [...] and occupational therapy for post-op rehab. - [place] [facility]. Disposition: Home with family. Patient was advised to call our office or their evaluation assistant with any questions. Follow-Up: Follow-up Information SALVATORE Ventura. Go on 06/23/2018. Specialty: Nurse Practitioner Why: Hospital follow up scheduled at 11:[address] Roa Contact information: [address] [facility] [id number] Hemanth Webster MD. Schedule an appointment as soon as possible for a visit on 06/29/2018 . Specialty: Cardiothoracic Surgery Why: 11:30 AM Contact information: [address], [facility] [address] [facility] [address] Schedule an appointment as soon as possible for a visit with [facility]. Why: Please call to schedule your 1 month follow-up with cardiology. Contact information: [address] [place] [phone] Time spent on discharge planning: greater than 30 minutes CABG Checklist ACEI/ARB/ARNI prescribed: No - Hypotension Aspirin prescribed: Not addressed Beta mateus (evidence-based) prescribed: Yes Beta mateus prescribed: N/A - LV EF is less than 41% High intensity statin prescribed: Yes Referral to cardiac rehab: Yes Tobacco cessation counseling provided: Yes [facility] [address] [place] [address] Portions of this chart may have been created with [employer] voice recognition software. Occasi onal wrong-word or [...] breath, please call Luis Alfredo estrada at [phone]. 2. For problems or concerns with your incision or your chest, please call [facility] a hi Lung (Surgery) at [phone]. After Coronary Artery Bypass Surgery When you [...] by medication, call your healthcare pr fuad. [phone] Darrell Gallegos, [address] [place] [address], [place] [address]. All rights reserve d. This information is [...] | | | | infarction) ([facility]), | | | | | | | Polysubstance abuse | | | | | | | ([facility]) | | | | | | + [...] Pt states she was brought to [facility] by [facility] but states she is no l onger in custody. No guards at the door. SW Rack Puller suggested SW contact group home to confirm. SW spoke with [facility] who confirms pt was released. SW spoke with pt regarding discharge plan. Pt plans to discharge to friend's home. SW available should further discharg e planning needs arise. Keith Lopez MD - 06/15/2018 8:45 AM PDT [facility] PATIENT NAME: Smitha Fletcher : 1955: [...] dilol. 2. Follow-up requested. Keith Harp MD, [facility] Portions of this chart were created with [employer] voice recognition software. Occasional wro ng-word or "sound-alike" substitutions may have occurred due to the inherent limitations of voice recognition software. Please read the chart carefully and recognize, using context, w here those substitutions have occurred. eonte Lee MD - 06/15/2018 7:15 AM PDTFormatting of this no te might be different from the original. [facility] Pt. Name/Age/: Smitha Fletcher 62 y.o. 1955 Med. Record Number: [id number] Date of admission: 06/07/2018 POD # 4 Procedure: CABG X 3 Surgeon: Eleanor Subjective New complaints: poor sternal precautions. No c/o this morning. Acknowledges that came [facility]. Not sure where she is going. [...] signed by: Hector Decker PA-C Cardiothoracic Surgery [facility] [address], [address] [place] [address] 06/15/2018 7:15 [facility] Agree with detailed plan nicely outlined by Hector shley Graves MSW - 06/14/2018 1:05 PM PDTSOCIAL WORK PLAN: TBD INTERVENTION: SW acknowledged order for return to group home. Pt came from group home per chart review and may have to go back there upon DC. SW will continue to follow for DC planning. Frandy Estrada ARNP - 06/14/2018 9:11 AM PDTBlood Glucose log reviewed. Patient is stable, with control led blood glucose. Not requiring insulin Diabetes Service will sign off. Medication Reconciliation for diabetes medications has been completed. Please contact us at [phone] should the need arise. Thank you for [...] signed by: Rip Yao M.D. CardioThoracic Surgery [facility] 06/14/2018 9:23 [facility] Pt. Name/Age/: Smitha Fletcher 62 y.o. 1955 Med. Record Number: [id number] Date of admission: 06/07/2018 POD # 3 [...] with the patient is going. Willl have foster care social worker start arrangements. Problem List [...] signed by: Hector Decker PA-C Cardiothoracic Surgery [facility] [address], [address] [place] [address] 06/14/2018 8:59 [facility] Dave Hill MD - 06/14/2018 8:07 AM PDT [facility] PATIENT NAME: Smitha Fletcher : 1955: [...] Portions of this chart were created with [employer] voice recognition software. Occasional wro ng-word or [...] RN; she will be discharging from [facility] to group home that she came from. Assessment for glucose [...] SALVATORE Elias 06/13/2018 14:53 Diabetes team, [facility] [phone] Amaury Hill MD - 06/13/2018 10:27 AM PDTFormatting of this note might be different from the origi nal. [facility] PATIENT NAME: Smitha Fletcher : 1955: [...] Portions of this chart were created with [employer] voice recognition software. Occasional wro ng-word or [...] signed by: Rip Yao M.D. CardioThoracic Surgery [facility] 06/13/2018 9:35 [facility] Pt. Name/Age/: Smitha Fletcher 62 y.o. 1955 Med. Record Number: [id number] Date of admission: 06/07/2018 POD #2 Procedure: [...] coronary artery bypass Electronically signed by: Hector eDcker PA-C Cardiothoracic Surgery [facility] [address], [address] [place] [address] 06/13/2018 8:11 [facility] Kezia Downing RN - 06/12/2018 3:10 [...] well. Plan transfer to floor. Yecenia Christianson MACHINE PULLER AND LASTER - 06/12/2018 12:20 PM PDTSOCIAL WORK D/C PLAN: TBD INTERVENTION: Sw following for discharge planning. NEXT STEPS: Follow progress and therapy recommendations for discharge planning. ASSESSMENT/CHART REVIEW: Pt resides in [place]. She has Medicare coverage. COPD, is risk for readmission. If pt d oes not need placement she may benefit from home health post acute care. D/C TRANSPORT: TBD BARRIERS TO D/C: Medical stability CONTACTS: Hanna Sethi: [phone] signed by JEFFY Cabrales at 06/12/2018 1 [...] 1.0 0.4 - 1.5 % Comment PS8 [id number] O2 Content, Arterial 15.7 15.0 - 23.0 [...] 22:29 Result Value Ref Range Product Code W9848L45 UNIT # [id number] UNIT ABO O UNIT RH NEG CROSSMATCH INTERP Compatible Unit Status XM Blood Product Expiration Date and Time Product Blood Type Barcode 9500 Product Code W1197N62 UNIT # [id number] UNIT ABO O UNIT RH NEG CROSSMATCH [...] 6:53 Result Value Ref Range Product Code R4800H08 UNIT # [id number] UNIT ABO O UNIT RH NEG CROSSMATCH INTERP Compatible Unit Status XM Blood Product Expiration Date and Time [id number] Product Blood Type Barcode 9500 POC Glucose [...] Duvall MD - 06/12/2018 10:12 AM PDT [facility] Hemanth Webster [...] Brittnee Sandoval cardiology. She was brought from group home, complaining of severe 8-9/10 burning chest pain [...] - Single Lumen 06/10/18 1446 Right Forearm znyw-rlv-kxtfjj catheter sys tem 22 gauge;1 in length [...] - 99 mg/dL Final Comment: Performed by [facility] [address] [place] [place] [address] All pertinent labs and imaging have been [...] this chart may have been created with [employer] voice recognition software. Occasi onal wrong-word or sound-alike substitutions may have occurred due to the inherent meyers itations of voice recognition software. Please read the chart carefully and recognize, using context, where these substitutions have occurred Brenna Henderson Mi dical Student - 06/10/2018 11:05 AM [...] TTE 06/08/18 showed LVEF of 45% with plmbyquh-go-wkumxw hypokinesis of lateral and inferio r castillo. [...] dependence and incarce ration that presented from group home with severe left sided chest pain that [...] r educational purposes. Please refer to attending/resident/physician broker assistant/nurse practit ioner note regarding further patient [...] TTE on 018 revealed LVEF = 45%, njzkaupn-wv-keofut hypokinesis of lateral and inferior castillo, julian [...] nicotine dependence and incarceration pres ented from group home w/ severe, burning, substernal chest pain w/ radiation to left shoulder and associated nausea and vomiting. Workup in ED revealed troponin elevation (peak 0.311 this admission) and patient was admitt ed for further workup and management w/ cardiology. Labs in ED also revealed UDS positive fo r amphetamine, methamphetamine, benzodiazepines and opiates. TTE revealed LVEF = 45%, wgsfapeq-vo-tjzybk hypokinesis of lateral and inferior castillo, mitr [...] Dr. Sandoval cardiology. She was brought from group home, complaining of severe 8-9/10 burning chest pain [...] Single Lumen 06/09/18 0836 Left Distal Forearm gpfl-dwn-vpmjrb cathet er system 20 gauge;1 1/4 in [...] this chart may have been created with [employer] recognition software. Occasi onal wrong-word or sound-alike [...] TTE on 018 revealed LVEF = 45%, fumfvjim-wa-gsttke hypokinesis of lateral and inferior castillo, julian [...] nicotine dependence and incarceration pres ented from group home w/ severe, burning, substernal chest pain w/ radiation to left shoulder and associated nausea and vomiting. Workup in ED revealed troponin elevation (peak 0.311 this admission) and patient was admitt ed for further workup and management w/ cardiology. Labs in ED also revealed UDS positive fo r amphetamine, methamphetamine, benzodiazepines and opiates. TTE revealed LVEF = 45%, wsairbhd-xb-mkhsyq hypokinesis of lateral and inferior castillo, mitr [...] Service: 06/08/2018 PCP: Yolanda Lee [facility] Day: 0 Hospital Course: This is a 62 y.o. female with hx substance abuse, [place] and stent placement in [address] Riya banuelos cardiology. She was brought from group home, complaining on sever -06/15 burning chest pain [...] 06/07/18 1545 Right Anterior (palmar);Medial Forearm ove j-ehu-mnlzka catheter system 20 gauge;other (see comments) 1 [...] this chart may have been created with [employer] voice recognition software. Occasi onal wrong-word or [...] Portions of this chart were created with [employer] voice recognition software. Occasional wro ng-word or "sound-alike" substitutions may have occurred due to the inherent limitations of voice recognition software. Please read the chart carefully and recognize, using context, w here those substitutions have occurred.Electronically signed by Shad Schuler MD at 06/08 10:27 AM Rhiannon Irene RN - 06/07/2018 3:09 PM [id number] arrived to floor. Somu nlent. Asking very [...] | | | | | | [place] [address] | | | | | | [phone] | | | | | | | [...] PROVIDENCE | | | | Performed by [facility] [address] | | SACRED | | | | [address] [place] | | HEART | | | | [address] | | MEDICAL | | | | [...] SACRED | [address] | [place] [address] | | | HEART [facility] [...] | | MEDICAL | | | | [facility] [address], | | CENTER | | | | [place] [address] | | LABORATORY | | | | [...] + | [facility]DE[facility] | [address] | [place] [address] | | | [facility] | [...] + + + + | Product | [id number] | | REFERENCE | | | Code | | | LAB [place] | | | | | | [place] | | | | | | [facility] | | | | | | BLOOD | | | | | | CENTER | | + + + + + + | UNIT # | [id number] | | REFERENCE | | | | | | LAB [place] | | | | | | [facility] | | | | | | [facility] | | | | | | BLOOD | | | | | | CENTER | | + + + + + + | UNIT ABO | O | | REFERENCE | | | | | | LAB [place] | | | | | | [place] | | | | | | [facility] | | | | | | BLOOD | | | | | | CENTER | | + + + + + + | UNIT RH | NEG | | REFERENCE | | | | | | LAB [place] | | | | | | [facility] | | | | | | [facility] | | | | | | BLOOD | | | | | | CENTER | | + + + + + + | CROSSMATCH | Compatible | | REFERENCE | | | INTERP | | | LAB [place] | | | | | | [facility] | | | | | | [facility] | | | | | | BLOOD | | | | | | CENTER | | + + + + + + | Unit Status | RE | | REFERENCE | | | | | | LAB [place] | | | | | | [facility] | | | | | | [facility] | | | | | | BLOOD | | | | | | CENTER | | + + + + + + | Blood | [id number] | | REFERENCE | | | Product | | | LAB [place] | | | Expiration | | | [facility] | | | Date and | | | [facility] | | | Time | | | BLOOD | | | | | | CENTER | | + + + + + + | Product | [id number] | | REFERENCE | | | Blood Type | | | LAB [place] | | | Barcode | | | [...] + + + | Specimen Expiration Date: [id number] | REFERENCE LAB | | | [place] | | | [facility] | | | BLOOD CENTER | + + + + + + + + | Performing | Address | City/State/Zipcode | Phone Number | | Organization | | | | + + + + + | REFERENCE LAB | [address] | [place] | [phone] | | [place] | | | | | [facility] [...] | | | POC | Performed by [facility] [address] | | SACRED | | | | [address] [place] | | HEART | | | | [address] | | MEDICAL | | | | [...] + | [facility] | [address] | [place] [address] | | | [facility] | [...] + + + + | Product | [id number] | | REFERENCE | | | Code | | | LAB [place] | | | | | | [facility] | | | | | | [facility] | | | | | | BLOOD | | | | | | CENTER | | + + + + + + | UNIT # | [id number] | | REFERENCE | | | | | | LAB [place] | | | | | | [facility] | | | | | | [facility] | | | | | | BLOOD | | | | | | CENTER | | + + + + + + | UNIT ABO | O | | REFERENCE | | | | | | LAB [place] | | | | | | [facility] | | | | | | [facility] | | | | | | BLOOD | | | | | | CENTER | | + + + + + + | UNIT RH | NEG | | REFERENCE | | | | | | LAB [place] | | | | | | [facility] | | | | | | [facility] | | | | | | BLOOD | | | | | | CENTER | | + + + + + + | CROSSMATCH | Compatible | | REFERENCE | | | INTERP | | | LAB [place] | | | | | | [facility] | | | | | | [facility] | | | | | | BLOOD | | | | | | CENTER | | + + + + + + | Unit Status | IS | | REFERENCE | | | | | | LAB [place] | | | | | | [facility] | | | | | | [facility] | | | | | | BLOOD | | | | | | CENTER | | + + + + + + | Blood | [id number] | | REFERENCE | | | Product | | | LAB [place] | | | Expiration | | | [facility] | | | Date and | | | [facility] | | | Time | | | BLOOD | | | | | | CENTER | | + + + + + + | Product | [id number] | | REFERENCE | | | Blood Type | | | LAB [place] | | | Barcode | | | [facility] | | | | | | [facility] | | | | | | BLOOD | | | | | | CENTER | | + + + + + + | Product | [id number] | | REFERENCE | | | Code | | | LAB [place] | | | | | | [facility] | | | | | | [facility] | | | | | | BLOOD | | | | | | CENTER | | + + + + + + | UNIT # | [id number] | | REFERENCE | | | | | | LAB [place] | | | | | | [facility] | | | | | | [facility] | | | | | | BLOOD | | | | | | CENTER | | + + + + + + | UNIT ABO | O | | REFERENCE | | | | | | LAB [place] | | | | | | [facility] | | | | | | [facility] | | | | | | BLOOD | | | | | | CENTER | | + + + + + + | UNIT RH | NEG | | REFERENCE | | | | | | LAB [place] | | | | | | [facility] | | | | | | [facility] | | | | | | BLOOD | | | | | | CENTER | | + + + + + + | CROSSMATCH | Compatible | | REFERENCE | | | INTERP | | | LAB [place] | | | | | | [facility] | | | | | | [facility] | | | | | | BLOOD | | | | | | CENTER | | + + + + + + | Unit Status | IS | | REFERENCE | | | | | | LAB [place] | | | | | | [facility] | | | | | | [facility] | | | | | | BLOOD | | | | | | CENTER | | + + + + + + | Blood | [id number] | | REFERENCE | | | Product | | | LAB [place] | | | Expiration | | | [facility] | | | Date and | | | [facility] | | | Time | | | BLOOD | | | | | | CENTER | | + + + + + + | Product | [id number] | | REFERENCE | | | Blood Type | | | LAB [place] | | | Barcode | | | [...] + + + | Specimen Expiration Date: [id number] | REFERENCE LAB | | | [place] | | | [facility] | | | BLOOD CENTER | + + + + + + + + | Performing | Address | City/State/Zipcode | Phone Number | | Organization | | | | + + + + + | REFERENCE LAB | [address] | [place] [address] | [phone] | | [place] | | | | | [facility] [...] | | | POC | Performed by [facility] [address] | | SACRED | | | | [address], [place] | | HEART | | | | [address] | | MEDICAL | | | | [...] + | [facility] | [address] | [place] [address] | | | [facility] | [...] | | | POC | Performed by [facility] [address] | | SACRED | | | | [address] [place] | | HEART | | | | [address] | | MEDICAL | | | | [address] | [place] [address] | | | [facility] | [...] | | | POC | Performed by [facility] [address] | | SACRED | | | | [address], [place] | | HEART | | | | [address] | | MEDICAL | | | | [...] + | [facility] | [address] | [place] [address] | | | HE[facility] [...] | | | POC | Performed by [facility] [address] | | SACRED | | | | [address] [place] | | HEART | | | | [address] | | MEDICAL | | | | [address] | [place] [address] | | | [facility] | [...] | | | POC | Performed by [facility] [address] | | SACRED | | | | [address], [place] | | HEART | | | | [address] | | MEDICAL | | | | [...] + | AM[facility] | [address] | [place] [address] | | | HE[facility] [...] | | | POC | Performed by [facility] [address] | | SACRED | | | | [address] [place] | | HEART | | | | [address] | | MEDICAL | | | | [...] + + | AM[facility] | [address] | [place] [address] | | | [facility] | [...] PROVIDENCE | | | | Performed by [facility] [address] | | SACRED | | | | [address] [place] | | HEART | | | | [address] | | MEDICAL | | | | [...] + + | AM[facility] | [address] | [place] [address] | | | HEART [facility]ENTER | [...] | | MEDICAL | | | | [facility] [address] [facility] [address], | | [place] | | | | [place] [address] | | LABORATORY | | | | [...] [address] | [place] [address] | | | [facility] | [...] | | | POC | Performed by [facility] [address] | | SACRED | | | | [place] | | HEART | | | | [address] | | MEDICAL | | | | [...] + | YARELISDEMIKarly BRENDAN | [address] | [place] [address] | | | [facility] | [...] | | | POC | Performed by [facility] [address] | | SACRED | | | | [address] [place] | | HEART | | | | [address] | | MEDICAL | | | | [...] [address] | [place] [address] | | | [facility] | [...] | | | POC | Performed by [facility] [address] | | SACRED | | | | [address], [place] | | HEART | | | | [address] | | MEDICAL | | | | [...] + | YARELISCARLOS CARDONA | [address] | [place] [address] | | | [facility] | [...] | | | POC | Performed by [facility] [address] | | SACRED | | | | [address] [place] | | HEART | | | | [address] | | MEDICAL | | | | [...] [address] | [place] [address] | | | [facility] | [...] | | | POC | Performed by [facility] [address] | | SACRED | | | | [address], [place] | | HEART | | | | [address] | | MEDICAL | | | | [...] + | Y[facility]ELISDEMIKarly C[facility] | [address] | [place] [address] | | | [facility] | [...] | PROVIDENCE | | | POC | [facility] [address], | | SACRED | | | | [place] [address] | | HEART | | | |Performed by [facility] [address], [place] [address] | | MEDICAL | | | | [...] [address] | [place] [address] | | | [facility] | [...] | | | POC | Performed by [facility] [address] | | [place] | | | | [address], [place] | | HEART | | | | [address] | | MEDICAL | | | | [...] + | AMILCAR CARDONA | [address] | [place] [address] | | | [facility] | | | | | [...] | [facility] | | | POC | [facility] [address], | | SACRED | | | | [place] [address] | | HEART | | | |Performed by [facility] [address], [place] [address] | | MEDICAL | | | | [...] + + | YARELISDEMIKarly BRENDAN | [address] | [place] [address] | | | [facility] | [...] | PROVIDENCE | | | POC | [facility] [address], | | SACRED | | | | [place] [address] | | HEART | | | |Performed by [facility] [address], [place] [address] | | MEDICAL | | | | [...] + + | AMILCAR CARDONA | [address] | [place] [address] | | | [facility] | [...] | TRACEMASTER | | Duration:184 msP Horizontal [place]:5 degP Front [place]:55 degQ Onset:508 | | | msQRSD Interval:104 msQT Interval:452 msQTcB:452 msQTcF:452 msQRS | | | Horizontal [place]:129 degQRS [place]:-53 degI-40 Horizontal [place]:77 degI-40 | | | Front [place]:-44 degT-40 Horizontal [place]:204 degT-40 Front [place]:-83 | | | degT Horizontal [place]:95 degT Wave [place]:39 degS-T Horizontal [place]:79 | | | degS-T Front [place]:49 degSeverity:- ABNORMAL ECG -INTERP:SINUS | | | RHYTHMINTERP:CONSIDER RIGHT VENTRICULAR HYPERTROPHYINTERP:PROBABLE | | | INFERIOR INFARCT, AGE INDETERMINATEINTERP:BORDERLINE ST ELEVATION, | | | ANTERIOR LEADSElectronically signed by: ELIZABETH CAMPBELL 06-12-2018 | | | 07:37:14 | | |QRS Horizontal [place]:129 deg | | |QRS [place]:-53 deg | | |I-40 Horizontal [place]:77 deg | | |I-40 Front [place]:-44 deg | | |T-40 Horizontal [place]:204 deg | | |T-40 Front [place]:-83 deg | | |T Horizontal [place]:95 deg | | |T Wave [place]:39 deg | | |S-T Horizontal [place]:79 deg | | |S-T Front [place]:49 deg | | |Severity:- ABNORMAL ECG - [...] + | WAMT TRACEMASTER | [address] | [place] [address] | [phone] | + + + + + CBC [...] PROVIDENCE | | | | Performed by [facility] [address] | | SACRED | | | | [address] [place] | | HEART | | | | [address] | | MEDICAL | | | | [...] + | AMILCAR CARDONA | [address] | [place] [address] | | | [facility] | [...] | | MEDICAL | | | | [facility] [address], | | [place] | | | | [place] [address] | | LABORATORY | | | | [...] + + | AMILCAR [facility] | [address] | [place] [address] | | | HEART [facility] [...] | | | POC | Performed by [facility] [address] | | SACRED | | | | [address], [place] | | HEART | | | | [address] | | MEDICAL | | | | [...] + | AMILCAR CARDONA | [address] | [place] [address] | | | [facility] | [...] | PROVIDENCE | | | POC | [facility] [address], | | SACRED | | | | [place] [address] | | HEART | | | |Performed by [facility] [address], [place] [address] | | MEDICAL | | | | [...] [address] | [place] [address] | | | [facility] | [...] | | | POC | Performed by [facility] [address] | | SACRED | | | | [address], [place] | | HEART | | | | [address] | | MEDICAL | | | | [...] + + | YARELISCARLOS CARDONA | [address] | [place] [address] | | | [facility] | [...] | | | POC | Performed by [facility] [address] | | SACRED | | | | [address] [place] | | HEART | | | | [address] | | MEDICAL | | | | [...] [address] | [place] [address] | | | [facility] | [...] PROVIDENCE | | | | Performed by [facility] [address] | mmol/L | SACRED | | | | [address], [place] | | HEART | | | | [address] | | MEDICAL | | | | [...] + + | YARELISCARLOS CARDONA | [address] | [place] [address] | | | [facility] | [...] PROVIDENCE | | | | Performed by [facility] [address] | | SACRED | | | | [address] [place] | | HEART | | | | [address] | | MEDICAL | | | | [...] + | AMILCAR CARDONA | [address] | [place] [address] | | | [facility] | [...] CE | | | ARTERIAL | by [facility] [address], | | SACRED | | | | [place] [address] | | HEART | | | |Performed by [facility] [address], [place] [address] | | MEDICAL | | | | [...] + + | AMILCAR CARDONA | [address] | [place] [address] | | | HEART [facility] [...] | | | POC | Performed by [facility] [address] | | SACRED | | | | [place] | | HEART | | | | [address] | | MEDICAL | | | | [...] + | AMILCAR CARDONA | [address] | [place] [address] | | | [facility] | [...] | | | POC | Performed by [facility] [address] | | SACRED | | [...] | [address] | [place] [address] | | | HEART [facility] [...] | PROVIDENCE | | | | by [facility] [address], | mmol/L | SACRED | | | | [place] [address] | | HEART | | | |Performed by [facility] [address], [place] [address] | | MEDICAL | | | | [...] + | YARELISDEMIKarly CARDONA | [address] | [place] [address] | | | [facility] | [...] | | | POC | Performed by [facility] [address] | | SACRED | | | | [address] [place] | | HEART | | | | [address] | | MEDICAL | | | | [...] + + | AMILCAR CARDONA | [address] | [place] [address] | | | [facility] | [...] | TRACEMASTER | | Duration:180 msP Horizontal [place]:-10 degP Front [place]:68 degQ Onset:512 | | | msQRSD Interval:110 msQT Interval:444 msQTcB:486 msQTcF:472 msQRS | | | Horizontal [place]:112 degQRS [place]:-63 degI-40 Horizontal [place]:100 | | | degI-40 Front [place]:-58 degT-40 Horizontal [place]: degT-40 Front [place]:160 | | | degT Horizontal [place]:104 degT Wave [place]:-11 degS-T Horizontal | | | [place]:104 degS-T Front [place]:32 degSeverity:- ABNORMAL ECG -INTERP:SINUS | | | RHYTHMINTERP:PROBABLE LEFT ATRIAL ABNORMALITYINTERP:NONSPECIFIC IVCD | | | WITH LADINTERP:INFERIOR INFARCT, AGE INDETERMINATEINTERP:LATERAL | | | INFARCT, OLDElectronically signed by: ELIZABETH CAMPBELL 06-12-2018 | | | 11:18:02 | | |QRS Horizontal [place]:112 deg | | |QRS [place]:-63 deg | | |I-40 Horizontal [place]:100 deg | | |I-40 Front [place]:-58 deg | | |T-40 Horizontal [place]: deg | | |T-40 Front [place]:160 deg | | |T Horizontal [place]:104 deg | | |T Wave [place]:-11 deg | | |S-T Horizontal [place]:104 deg | | |S-T Front [place]:32 deg | | |Severity:- ABNORMAL ECG - | | |INTERP:SINUS RHYTHM | | |INTERP:PROBABLE LEFT ATRIAL ABNORMALITY | | |INTERP:NONSPECIFIC IVCD WITH LAD | | |INTERP:INFERIOR INFARCT, AGE INDETERMINATE | | |INTERP:LATERAL INFARCT, OLD | | |Electronically signed by: ELIZABETH CAMPBELL 06-12-2018 11:18:02 | | + + + + + + + + | Performing | Address | City/State/[facility] | Phone Number | | Organization | | | | + + + + + | WAFL TRACEMASTER | [address] | [place] [address] | [phone] | + + + + + PTT [...] | | | | | seconds.Performed by [facility] | | | | | | [address], | | | | | | [place] [address] | | | | + + + + + + + + | Specimen | + + | Blood specimen | | (specimen) | + + + + + + + | Performing | Address | City/State/Zipcode | Phone Number | | Organization | | | | + + + + + | [facility] | [address] | [place] [address] | | | [facility] | [...] | | | | to 3.5Performed by [facility] | | LABORATORY | | | | [address], [place], | | [place] | | | | [place] [address] | | | | + + + + + + + + | Specimen | + + | Blood specimen | | (specimen) | + + + + + + + | Performing | Address | City/State/Zipcode | Phone Number | | Organization | | | | + + + + + | [facility] | [address] | [place] [address] | | | [facility] | [...] | | MEDICAL | | | | [facility] [address] | | [place] | | | | [place] [address] | | LABORATORY | | | | [...] SACRED | [address] | [place] [address] | | | [facility] | [...] PROVIDENCE | | | | Performed by [facility] [address] | | SACRED | | | | [address] [place] | | HEART | | | | [address] | | MEDICAL | | | | [...] + + | YARELISCARLOS CARDONA | [address] | [place] [address] | | | [facility] | [...] PROVIDENCE | | | Arterial | by [facility] [address], | mmol/L | SACRED | | | | [place] [address] | | HEART | | | |Performed by [facility] [address], [place] [address] | | MEDICAL | | | | [...] SACRFAUSTO | [address] | [place] [address] | | | [facility] | [...] E | | | Normalized | by [facility] [address], | mg/dL | SACRED | | | | [place] [address] | | HEART | | | |Performed by [facility] [address], [place] [address] | | MEDICAL | | | | [...] | [address] | [place] [address] | | | [facility] | [...] PROVIDEDEMIE | | | | Performed by [facility] [address] | | SACRED | | | | [address], [place] | | HEART | | | | [address] | | MEDICAL | | | | [...] + | AMILCAR CARDONA | [address] | [place] [address] | | | [facility] | [...] +--------- ----+ + | Comment | [id number] | | PROVIDEN CE | | | [...] CE | | | ARTERIAL | by [facility] [address], | | SACRED | | | | [place] [address] | | HEART | | | |Performed by [facility] [address], [place] [address] | | MEDICAL | | | | [...] + | AMILCAR CARDONA | [address] | [place] [address] | | | [facility] | [...] | | | Arterial | Performed by [facility] [address] | mmol/L | SACRED | | | | [address] [place] | | HEART | | | | [address] | | MEDICAL | | | | [...] + | AMILCAR CARDONA | [address] | [place] [address] | | | [facility] | [...] PROVIDEN CE | | | | by [facility] [address], | mmol/L | SACRED | | | | [place] [address] | | HEART | | | |Performed by [facility] [address], [place] [address] | | MEDICAL | | | | [...] + + | [facility] | [address] | [place] [address] | | | [facility] | [...] | | | | | seconds.Performed by [facility] | | | | | | [address], | | | | | | [place] [address] | | | | + + + + + + + + | Specimen | + + | Blood specimen | | (specimen) | + + + + + + + | Performing | Address | City/State/Zipcode | Phone Number | | Organization | | | | + + + + + | AMILCAR [facility]ED | [address] | [place] [address] | | | [facility] | [...] | | | Arterial | Performed by [facility] [address] | mmol/L | SACRED | | | | [address] [place] | | HEART | | | | [address] | | MEDICAL | | | | [...] + | AMILCAR CARDONA | [address] | [place] [address] | | | [facility] | [...] PROVIDEN CE | | | | by [facility] [address], | mmol/L | SACRED | | | | [place] [address] | | HEART | | | |Performed by [facility] [address], [place] [address] | | MEDICAL | | | | [...] CARDONA | [address] | [place] [address] | | | [facility] | [...] PROVIDENCE | | | Arterial | by [facility] [address], | mmol/L | SACRED | | | | [place] | | HEART | | | |Performed by [facility] [address], [place] | | MEDICAL | | | [...] + + | [facility] | [address] | [place] | | | HEART MEDICAL [...] PROVIDENCE | | | | Performed by [facility] [address] | | SACRED | | | | [address] [place] | | HEART | | | | [address] | | MEDICAL | | | | [...] + | AMILCAR CARDONA | [address] | [place] [address] | | | [facility] | [...] PROVIDENCE | | | Arterial | by [facility] [address], | mmol/L | SACRED | | | | [place] [address] | | HEART | | | |Performed by [facility] [address], [place] [address] | | MEDICAL | | | | [...] [address] | [place] [address] | | | [facility] | [...] PROVIDENCE | | | | Performed by [facility] [address] | | SACRED | | | | [address] [place] | | HEART | | | | [address] | | MEDICAL | | | | [...] + + | AMILCAR CARDONA | [address] 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 Visible portions of ascending aorta | | | and arch normal. Grade 2atherosclerotic disease of descending aorta.9. | | | Pulmonary artery vuoivo04. Normal pericardium. No pericardial fluid. | | [...] Number 270 | | ZIYAD Patient Number [id number] Date of Study 06/11/2018 Visit | | Number [id number] Interpreting Sharad | | MD Jose Manuel Number Physician Date of 1955 | | Referring Physician ELEANOR MARTIN Age 62 year(s) | | Steam Frame Operator Sanjeev Bradshaw, | | MD Sharad [...] function. Trace TR.7. Pulmonic valve normal Trace NV.8. Visible portions | | of ascending aorta [...] [facility] | | | Arterial | by [facility] [address], | mmol/L | SACRED | | | | [place] [address] | | HEART | | | |Performed by [place] [address], [place] [address] | | MEDICAL | | | | [...] | YARELISDEMIKarly BRENDAN | [address] [place] [address]. | [place] [address] | | | [facility] | [...] | | | Normalized | Performed by [facility] [address] | mg/dL | SACRED | | | | [address] [place] | | HEART | | | | [address] | | MEDICAL | | | | [...] + | AMILCAR CARDONA | [address] | [place] [address] | | | [facility] | [...] [facility]ENCE | | | Arterial | by [facility] [address], | mmol/L | SACRED | | | | [place] [address] | | HEART | | | |Performed by [facility] [address], [place] [address] | | MEDICAL | | | | [...] + + | AMILCAR [facility] | [address] | [place] [address] | | | [facility] | [...] PROVIDENCE | | | | Performed by [facility] [address] | mmol/L | SACRED | | | | [address] [place] | | HEART | | | | [address] | | MEDICAL | | | | [...] [address] | [place] [address] | | | [facility] | [...] | | Screen | | | LAB [place] | | | | | | [facility] | | | | | | [facility] | | | | | | B[facility] | | | | | | CENTER | | + + + + + + | ABO | O | | REFERENCE | | | | | | LAB [place] | | | | | | [facility] | | | | | | [facility] | | | | | | [facility] | | | | | | CENTER | | + + + + + + | Rh Type | Negative | | REFERENCE | | | | | | LAB [place] | | | | | | [facility] [...] + + + | Specimen Expiration Date: [id number] | REFERENCE LAB | | | [place] | | | [facility] | | | [facility] | + + + + + + + + | Performing | Address | City/State/Zipcode | Phone Number | | Organization | | | | + + + + + | REFERENCE LAB | [address] | [place] [address] | [phone] | | [place] | | | | | [facility] [...] | | | POC | Performed by [facility] [address] | | SACRED | | | | [address], [place] | | HEART | | | | [address] | | MEDICAL | | | | [...] [address] | [place] [address] | | | [facility]ENTER | [...] CENTER | | | | 3.5Performed by [facility] 101 | | LABORATORY | | | | [place] | | [place] | | | | [address] | | | | + + + + + + + + | Specimen | + + | Blood specimen | | (specimen) | + + + + + + + | Performing | Address | City/State/Zipcode | Phone Number | | Organization | | | | + + + + + | AMILCAR CARDONA | [address] | [place] [address] | | | [facility] | [...] PROVIDEDEMIE | | | | Performed by [facility] [address] | | SACRED | | | | [place] | | HEART | | | | [address] | | MEDICAL | | | | [...] + + | [facility] | [address] | [place] [address] | | | [facility] | | | | | [...] | | MEDICAL | | | | [facility] [address], | | CENTER | | | | [place] [address] | | LABORATORY | | | | [...] + + | [facility] | [address] | [place] [address] | | | [facility] | [...] | | | | | seconds.Performed by [facility] | | | | | | [address], | | | | | | [place] [address] | | | | + + + + + + + + | Specimen | + + | Blood specimen | | (specimen) | + + + + + + + | Performing | Address | City/State/Zipcode | Phone Number | | Organization | | | | + + + + + | [facility] | [address] | [place] [address] | | | [facility] | | | | | [...] [facility] | | | Source | by [facility] [address], | | SACRED | | | | [place] [address] | | HEART | | | |Performed by [facility] [address], [place] [address] | | MEDICAL | | | | [...] + + | [facility] | [address] | [place] [address] | | | [facility] | | | | | [...] - 1.030 | [facility] | | | [place] | | | SACRED | | | [...] | | | SOURCE | Performed by [facility] [address] | | SACRED | | | | [address] [place] | | HEART | | | | [address] | | MEDICAL | | | | [...] + | AMILCAR MATAMOROS | [address] | [place] [address] | | | [facility] | [...] | | | POC | Performed by [facility] [address] | | SACRED | | | | [address], [place] | | HEART | | | | [address] | | MEDICAL | | | | [...] [address] | [place] [address] | | | [facility]ICAL [facility]ENTER | [...] | | | | | seconds.Performed by [facility] | | | | | | [address], | | | | | | [place] [address] | | | | + + + + + + + + | Specimen | + + | Blood specimen | | (specimen) | + + + + + + + | Performing | Address | City/State/Zipcode | Phone Number | | Organization | | | | + + + + + | AMILCAR CARDONA | [address] | [place] [address] | | | [facility] | [...] | | MEDICAL | | | | [facility] [address], | | CENTER | | | | [place] [address] | | LABORATORY | | | | [...] + + | [facility] | [address] | [place] [address] | | | [facility] | | | | | [...] CENTER | | | | 3.5Performed by [facility] [address] | | LABORATORY | | | | [address], [place] | | [place] | | | | [address] | | | | + + + + + + + + | Specimen | + + | Blood specimen | | (specimen) | + + + + + + + | Performing | Address | City/State/Zipcode | Phone Number | | Organization | | | | + + + + + | AMILCAR CARDONA | [address] | [place] [address] | | | [facility] [...] | | | POC | Performed by [facility] [address] | | SACRED | | | | [address] [place] | | HEART | | | | [address] | | MEDICAL | | | | [...] + | PROVIDEDEMIE BRENDAN | [address] | [place] [address] | | | [facility] | [...] | | | | | | The [facility] recommends | | | | | | that a positive HCV | | | | | | antibody result be | | | | | | followed up with a HCV | | | | | | Nucleic Acid | | | | | | Amplification test | | | | | | ([id number]).Performed At: | | | | | | [place] [address] | | | | | | [facility] [address] | | | | | | [place], [place] | | | | | | [id number] | | | | | | [place] Ph:[phone] | | | | + + + + + + + + | Specimen | + + | Blood specimen | | (specimen) | + + + + + + + | Performing | Address | City/State/Zipcode | Phone Number | | Organization | | | | + + + + + | AMILCAR CARDONA | [address] | [place] [address] | | | [facility] | [...] | | | | | seconds.Performed by [facility] | | | | | | [address], | | | | | | [place] [address] | | | | + + + + + + + + | Specimen | + + | Blood specimen | | (specimen) | + + + + + + + | Performing | Address | City/State/Zipcode | Phone Number | | Organization | | | | + + + + + | [facility] CARDONA | [address] | [place] [address] | | | [facility] | [...] | [facility] | | Duration:152 msP Horizontal [place]:32 degP Front [place]:62 degQ Onset:512 | | | msQRSD Interval:110 msQT Interval:416 msQTcB:453 msQTcF:440 msQRS | | | Horizontal [place]:199 degQRS [place]:-83 degI-40 Horizontal [place]:77 degI-40 | | | Front [place]:-74 degT-40 Horizontal [place]:242 degT-40 Front [place]:216 | | | degT Horizontal [place]:84 degT Wave [place]:69 degS-T Horizontal [place]:97 | | | degS-T Front [place]:107 degSeverity:- ABNORMAL ECG -INTERP:SINUS | | | RHYTHMINTERP:NONSPECIFIC IVCD WITH LADINTERP:INFERIOR INFARCT, | | | OLDElectronically signed by: ELIZABETH CAMPBELL 06-12-2018 11:24:19 | | |QTcB:453 ms | | |QTcF:440 ms | | |QRS Horizontal [place]:199 deg | | |QRS [place]:-83 deg | | |I-40 Horizontal [place]:77 deg | | |I-40 Front [place]:-74 deg | | |T-40 Horizontal [place]:242 deg | | |T-40 Front [place]:216 deg | | |T Horizontal [place]:84 deg | | |T Wave [place]:69 deg | | |S-T Horizontal [place]:97 deg | | |S-T Front [place]:107 deg | | |Severity:- ABNORMAL ECG - [...] + | [facility] | [address] | [place] [address] | [phone] | + + + + + Pulmonary [...] | | | | | seconds.Performed by [facility] [facility] | | | | | | [address], | | | | | | [place] [address] | | | | + + + + + + + + | Specimen | + + | Blood specimen | | (specimen) | + + + + + + + | Performing | Address | City/State/Zipcode | Phone Number | | Organization | | | | + + + + + | YARELISDEMIKarly CARDONA | [address] | [place] [address] | | | [facility] | [...] | | | | | | The [facility] recommends | | | | | | that a positive HCV | | | | | | antibody result be | | | | | | followed up with a HCV | | | | | | Nucleic Acid | | | | | | Amplification test | | | | | | ([id number]).Performed At: | | | | | | [id number] | | | | | | [address] | | | | | | [place], [place] | | | | | | [id number] Daniel | | | | | | L MD Ph:[phone] | | | | + + + [...] | AMILCAR CARDONA | [address] [place] [address]. | [place] [address] | | | [facility] | | | | | [...] | | | | | formula.Performed by [facility] | | | | | | [address], | | | | | | [place] [address] | | | | + + + + + + + + | Specimen | + + | Blood specimen | | (specimen) | + + + + + + + | Performing | Address | City/State/Zipcode | Phone Number | | Organization | | | | + + + + + | YARELISCARLOS CARDONA | [address] | [place] [address] | | | [facility] | [...] | | | | | | [facility] [place] | | | | | | [facility] | | | | | | [facility] | | | | | | BLOOD | | | | | | CENTER | | + + + + + + | Rh Type | Negative | | REFERENCE | | | | | | LAB [place] | | | | | | [facility] | | | | | | [facility] | | | | | | BLOOD | | | | | | CENTER | | + + + + + + + + | Specimen | + + | | + + + + + | Narrative | Performed At | + + + | Specimen Expiration Date: [id number] | REFERENCE LAB | | | [place] | | | [facility] | | | [facility] | + + + + + + + + | Performing | Address | City/State/Zipcode | Phone Number | | Organization | | | | + + + + + | REFERENCE [facility] | [address] | [place] [address] | [phone] | | [place] [facility] | | | | | [facility] [...] | | Screen | | | [facility] [place] | | | | | | [facility] | | | | | | [facility] | | | | | | BLOOD | | | | | | CENTER | | + + + + + + + + | Specimen | + + | | + + + + + | Narrative | Performed At | + + + | Specimen Expiration Date: [id number] | RE[facility]ENCE [facility] | | | [place] | | | [facility] | | | [facility] | + + + + + + + + | Performing | Address | City/State/Zipcode | Phone Number | | Organization | | | | + + + + + | RE[facility]ENCE [facility] | [address] | [place] [address] | [phone] | | [place] | | | | | [facility] [...] | | | | | | [facility] [place] | | | | | | [facility] | | | | | | [facility] | | | | | | BLOOD | | | | | | CENTER | | + + + + + + + + | Specimen | + + | | + + + + + | Narrative | Performed At | + + + | Specimen Expiration Date: [id number] | RE[facility]ENCE [facility] | | | [place] | | | [facility] | | | [facility] | + + + + + + + + | Performing | Address | City/State/Zipcode | Phone Number | | Organization | | | | + + + + + | REFERENCE [facility] | [address] | [place] [address] | [phone] | | [place] | | | | | [facility] [...] | | | | | | [facility] [place] | | | | | | [facility] | | | | | | [facility] | | | | | | BLOOD | | | | | | CENTER | | + + + + + + | Rh Type | Negative | | REFERENCE | | | | | | [facility] [place] | | | | | | [facility] | | | | | | [facility] | | | | | | BLOOD | | | | | | CENTER | | + + + + + + | Antibody | Positive | | REFERENCE | | | Screen | | | LAB [place] | | | | | | [facility] [...] + + + | Specimen Expiration Date: [id number] | RE[facility]ENCE [facility] | | | [place] | | | [facility] | | | [facility] | + + + + + + + + | Performing | Address | City/State/Zipcode | Phone Number | | Organization | | | | + + + + + | REFERENCE LAB | [address] | [place] [address] | [phone] | | [place] | | | | | [facility] [...] | | | | | seconds.Performed by [facility] | | | | | | [address], | | | | | | [place] [address] | | | | + + + + + + + + | Specimen | + + | Blood specimen | | (specimen) | + + + + + + + | Performing | Address | City/State/Zipcode | Phone Number | | Organization | | | | + + + + + | AMILCAR CARDONA | [address] | [place] [address] | | | [facility] | [...] | proximal 40% LAD, 95% ostial septal property clerk, 70% mid and distal LAD, 100% [...] LAD, 95% | | | ostial septal property clerk, 70% mid and distal LAD, 100% [...] | TRACEMASTER | | Duration:176 msP Horizontal [place]:19 degP Front [place]:70 degQ Onset:512 | | | msQRSD Interval:110 msQT Interval:444 msQTcB:480 msQTcF:467 msQRS | | | Horizontal [place]:157 degQRS [place]:-77 degI-40 Horizontal [place]:75 degI-40 | | | Front [place]:-59 degT-40 Horizontal [place]:240 degT-40 Front [place]:267 | | | degT Horizontal [place]:91 degT Wave [place]:68 degS-T Horizontal [place]:98 | | | degS-T Front [place]:103 degSeverity:- ABNORMAL ECG -INTERP:SINUS | | | RHYTHMINTERP:NONSPECIFIC IVCD WITH LADINTERP:INFERIOR INFARCT, | | | OLDElectronically signed by: ELIZABETH CAMPBELL 06-12-2018 11:25:24 | | |QTcB:480 ms | | |QTcF:467 ms | | |QRS Horizontal [place]:157 deg | | |QRS [place]:-77 deg | | |I-40 Horizontal [place]:75 deg | | |I-40 Front [place]:-59 deg | | |T-40 Horizontal [place]:240 deg | | |T-40 Front [place]:267 deg | | |T Horizontal [place]:91 deg | | |T Wave [place]:68 deg | | |S-T Horizontal [place]:98 deg | | |S-T Front [place]:103 deg | | |Severity:- ABNORMAL ECG - [...] + + | SARITHA REY | [address] | [place] [address] | [phone] | + + + + + Magnesium (06/09/2018 3:07 AM PDT) + + + +--------- ----+ + | Component | Value | Ref Range | Performe d | Pathologist | | | | | At | Signature | + + + +--------- ----+ + | Magnesium | 2.1Comment: Performed | 1.7 - 2.4 mg/dL | [facility] | | | | by [facility] [address], | | SACRED | | | | [place] [address] | | HEART | | | |Performed by [facility] [address], [place] [address] | | MEDICAL | | | | [...] + | YARELISDEMIKarly CARDONA | [address] | [place] [address] | | | [facility] | | | | | RIVERA FRISA | | | | + + + [...] ENCE | | | Basophils | by [facility] [address], | K/uL | SACRED | | | | [place] [address] | | HEART | | | |Performed by [facility] [address], [place] [address] | | MEDICA L | | | [...] [address] | [place] [address] | | | [facility] | [...] | | MEDICAL | | | | [facility] [address], | | CENTER | | | | [place] [address] | | LABORATORY | | | | [...] + | AMILCAR CARDONA | [address] | [place] [address] | | | [facility] | [...] + + | Performing | Address | City/State/[facility] | Phone Number | | Organization [...] | | | | | TroponinPerformed by [facility] | | | | | | [address], | | | | | | [place] [address] | | | | + + + + + + + + | Specimen | + + | Blood specimen | | (specimen) | + + + + + + + | Performing | Address | City/State/Zipcode | Phone Number | | Organization | | | | + + + + + | AMILCAR CARDONA | [address] | [place] [address] | | | [facility] | [...] | TRACEMASTER | | Duration:200 msP Horizontal [place]:19 degP Front [place]:58 degQ Onset:512 | | | msQRSD Interval:110 msQT Interval:404 msQTcB:506 msQTcF:469 msQRS | | | Horizontal [place]:184 degQRS [place]:265 degI-40 Horizontal [place]:78 degI-40 | | | Front [place]:269 degT-40 Horizontal [place]:240 degT-40 Front [place]:259 | | | degT Horizontal [place]:77 degT Wave [place]:63 degS-T Horizontal [place]:83 | | | degS-T Front [place]:99 degSeverity:- ABNORMAL ECG -INTERP:SINUS | | | RHYTHMINTERP:NONSPECIFIC IVCD WITH LADINTERP:INFERIOR INFARCT, | | | OLDElectronically signed by: ELIZABETH CAMPBELL 06-12-2018 11:24:43 | | |QTcB:506 ms | | |QTcF:469 ms | | |QRS Horizontal [place]:184 deg | | |QRS [place]:265 deg | | |I-40 Horizontal [place]:78 deg | | |I-40 Front [place]:269 deg | | |T-40 Horizontal [place]:240 deg | | |T-40 Front [place]:259 deg | | |T Horizontal [place]:77 deg | | |T Wave [place]:63 deg | | |S-T Horizontal [place]:83 deg | | |S-T Front [place]:99 deg | | |Severity:- ABNORMAL ECG - [...] + | SARITHA REY | [address] | [place] [address] | [phone] | + + + + + Troponin [...] by | | | | | | [facility] [address], | | | | | | [place] [address] | | | | + + + + + + + + | Specimen | + + | Blood specimen | | (specimen) | + + + + + + + | Performing | Address | City/State/Zipcode | Phone Number | | Organization | | | | + + + + + | AMILCAR CARDONA | [address] | [place] [address] | | | [facility] | [...] [facility] [facility] | | | | by [facility] [address], | | SACRED | | | | [place] [address] | | HEART | | | |Performed by [facility] [address], [place] [address] | | MEDICAL | | | | [...] + + | YINE [facility] | [address] | [place] [address] | | | [facility] | | | | | [...] | | MEDICAL | | | | [facility] [address], | | CENTER | | | | [place] [address] | | LABORATORY | | | | [...] + + | [facility] | [address] | [place] [address] | | | [facility] | | | | | [...] | | MATTI Herrera at [address] | | MEDICAL | | | | [...] | | | | | TroponinPerformed by [facility] | | | | | | [address], | | | | | | [place] [address] | | | | + + + + + + + + | Specimen | + + | Blood specimen | | (specimen) | + + + + + + + | Performing | Address | City/State/Zipcode | Phone Number | | Organization | | | | + + + + + | AMILCAR CARDONA | [address] | [place] [address] | | | [facility] | [...] by | | | | | | [facility] [address], | | | | | | [place] [address] | | | | + + + + + + + + | Specimen | + + | Blood specimen | | (specimen) | + + + + + + + | Performing | Address | City/State/Zipcode | Phone Number | | Organization | | | | + + + + + | YARELISCARLOS CARDONA | [address] | [place] [address] | | | [facility] | [...] PROVIDENCE | | | | Performed by [facility] [address] | | SACRED | | | | [address] [place] | | HEART | | | | [address] | | MEDICAL | | | | [...] + + | AMILCAR CARDONA | [address] | [place] [address] | | | [facility] | [...] | | | | | battery.Performed by [facility] | | | | | | [address], | | | | | | [place] [address] | | | | + + + + + + + + | Specimen | + + | Urine specimen | | (specimen) | + + + + + + + | Performing | Address | City/State/Zipcode | Phone Number | | Organization | | | | + + + + + | [facility] | [address] | [place] [address] | | | [facility] | [...] 0.305 (AA)Comment: | 0.000 - 0.069 | YNIE | | | | Critical TRPI called [...] | | | | | [place].Performed by [facility] [address] | | | | | | [address] [place], [place] | | | | | | [address] | | | | + + + + + + + + | Specimen | + + | Blood specimen | | (specimen) | + + + + + + + | Performing | Address | City/State/Zipcode | Phone Number | | Organization | | | | + + + + + | AMILCAR CARDONA | [address] | [place] [address] | | | [facility] | [...] | HEART | | | |Performed by [facility] [address], [place] | | MEDICAL | | | [...] + + | AMILCAR CARDONA | [address] | [place], [place] | | | [facility] [...] U/L | [facility] | | | | [facility] [address], | | SACRED | | | | [place] [address] | | HEART | | | |Performed by [facility] [address], [place] [address] | | MEDICAL | | | | [...] + | YARELISDEMIKarly CARDONA | [address] | [place] [address] | | | [facility] | [...] | | MEDICAL | | | | [facility] [address], | | CENTER | | | | [place] [address] | | LABORATORY | | | | [...] + | AMILCAR CARDONA | [address] | [place] [address] | | | [facility] | [...] ENCE | | | Basophils | by [place] [address], | K/uL | SACRED | | | | [place] [address] | | HEART | | | |Performed by [facility] [address], [place] [address] | | MEDICA L | | | [...] + | AMILCAR CARDONA | [address] | [place] [address] | | | [facility] | [...] | [facility] | | | | by [facility] [address], | | SACRED | | | | [place] [address] | | HEART | | | |Performed by [facility] [address], [place] [address] | | MEDICAL | | | | [...] + + | [facility] | [address] | [place] [address] | | | [facility] | [...] U/L | [facility] | | | | [facility] [address], | | SACRED | | | | [place] | | HEART | | | |Performed by [facility] [address], [place] [address] | | MEDICAL | | | | [...] + + | AMILCAR CARDONA | [address] | [place] [address] | | | [facility] | [...] - 1.030 | [facility] | | | [place] | | | SACRED | | | [...] | | | SOURCE | Performed by [facility] [address] | | SACRED | | | | [address], [place] | | HEART | | | | [address] | | MEDICAL | | | | [...] SACRED | [address] | [place] [address] | | | [facility] | [...] of | | unspecified type of vessel, napaimute or graft | + + | NSTEMI [...] | | | | Mild Pain, Starting [facility] 06/11/18 at | | | | [...] PDT | | | | | Starting [facility] 06/11/18 at 1635, Give | | [...] | | First dose on [facility] 06/11/18 at 2100 | | PM [...] | | | | | | Starting [facility] 06/11/18 at 1715, | | | [...] PDT | | | | | Starting [facility] 06/11/18 at 1635, | | | [...] | | | | | NPO, Daytime [id number] Use NIGHT | | | | | | | DOSE for doses scheduled: | | | | | | | HS, 3AM, Nighttime [id number] Only | | | | | | [...] | | | | ONCE, [facility] 06/08/18 at 1045, For 1 [...] 18 4:15 | | | | | NEWSSTAND VENDOR, Starting Marycarmen 06/11/18 at | | AM [...] PDT | | | | | Starting [facility] 06/11/18 at 1635, | | | [...] | | | | | | Starting [facility] 06/11/18 at 1636, | | | [...] | | | | | | Starting [facility] 06/11/18 at 1700, PLUS | | [...] | | | | | Starting [facility] 06/09/18 at 0915, For | | | [...] | | | | | Starting [facility] 06/09/18 at 0829, For | | [...]
--- OUTSIDE RECORDS SUMMARY | ~2019-09-08 | XMS | Encounter Summary ---
Demographics + + + | Address | [address] | | | [place] [address] | + + + | Home Phone [...] | Author | [facility] | | | and [place]kitana | + + + | Organization | [facility] [...] Team Providers + +------+ + | Care Garnett Room Worker Name | Role | Phone | + +------+ + | [place] [facility] | PCP | | [...] N | Dx) | | | | [place] [address] | [facility] | | | | | [facility] | [place] [address] | | | | | [place], [place] | [phone] | | | | | [address] | | | | | | [phone] | Bello Hughes MD | | | | | | [address] | | | | | | [place], [place] | | | | | | [address] | | | | | | | [...] sent through Care Everywhere.UNDERSTANDING Reji MALCOLM DECAY (CHILEAN)documented in this encounter Medications at Time of [...] | | | | | | [place] [address] | | | | | | [phone] | | | | | | | | +--------+---------+ + + + documented as of this encounter Visit Diagnoses + + | Diagnosis | + + | Tooth decay - Primary Unspecified dental caries | + + documented in this encounter"
--- OUTSIDE RECORDS SUMMARY | ~2019-09-08 | XMS | Encounter Summary ---
Demographics + + + | Address | [address] | | | [place] [address] | + + + | Home Phone [...] | Author | [facility] | | | and [place]kitana | + + + | Organization | [facility] | | | and Ankitana [...] Team Providers + +------+ + | Care Paper Cup Machine Tender Name | Role | Phone | + +------+ + PCP | Unavailable | + +------+ + Encounter Details +--------+ + + + + | Date | Type | Department | Care Team | Description | +--------+ + + + + | 03/24/ | Hospital | [facility] | ED, PHYSICIAN | | | 2012 - | Encounter | [facility] | Estephanie Roy, | | | | | MEDICAL [address] | MD [address] | | | 03/26/ | | [place], [place] | [place], [place] | | | 2012 | | [address] | [address] | | | | | [phone] | | | | | | | RuthElizabeth, | | | | | | MD [address] | | | | | | [place] | | | | | | [place] [address] | | | | | | [phone] | | | | | | | [...] 1955 ADMISSION DATE: 03/24/2013 DISCHARGE DATE: 03/26/2013 [id number] / [id number] DISCHARGE DIAGNOSES: 1. Abdominal pain. 2. Nausea [...] p.o. at bedtime. ANNE MARIE PICHARDO ADM:03/24/13 [id number] 03/26/13 DIS Jack DISCHARGE SUMMARY [id number] [facility] Jesse Siddiqi MD,PhD [facility] THIS REPORT IS CONFIDENTIAL AND NOT TO BE RELEASED WITHOUT PROPER AUTHORIZATION. [facility] FOLLOWUP: Continue primary care through the [facility]. Office visit is schedu led for 04/02/2013 at 2 p.m. Discharge time was 38 minutes. Jesse Siddiqi MD,PhD P P TDC/sxs #[id number] cc: Jesse Siddiqi MD,PhD Electronically Signed 05/19/13 1556 Jesse Siddiqi MD,PhD ANNE MARIE PICHARDO ADM:03/24/13 [id number] 03/26/13 DIS Jack DISCHARGE SUMMARY [id number] [facility] Jesse Siddiqi MD,PhD [facility] THIS REPORT IS CONFIDENTIAL AND NOT TO BE RELEASED WITHOUT PROPER AUTHORIZATION.Electronica lly signed by Jesse Siddiqi MD at 05/19/2013 4:02 PM PDTdocumented in this encounter Progress Notes Jesse Siddiqi MD - 03/25/2013 2:59 PM PDT Hospitalist Progress Note Patient Information: Initial Evaluation: Initiated: 03/25/13 at 1500 Service date, if different from initiated date: Patient: ANEN MARIE PICHARDO, a 57yo F admitted on [...] pain assoc with opiate withdrawal while in [facility]. * HTN- controlled. * CAD- stable * Disposition- plan for home tomorrow CC: //ivnm// Electronically Signed By: Jesse Siddiqi MD,PhD 03/25/13 1516 ANNE MARIE PICHARDO ADM:03/24/13 [id number] ADM Jack PROGRESS NOTE [id number] [facility] Jesse Siddiqi MD,PhD E-Sign: [facility] THIS REPORT IS CONFIDENTIAL AND NOT [...] | | | | | | [place] [address] | | | | | | [phone] | | | | | | | [...] + + | YARELISCARLOS CARDONA | [address] | [place] [address] | | | [facility] | [...] + + | [facility] | [address] | [place] [address] | | | [facility] | [...] + | AMILCAR CARDONA | [address] [facility] [address] | [place] [address] | | | [facility] | [...] - 1.030 | [facility] | | | [place] | | | SACRED | | | [...] + + | AMILCAR CARDONA | [address] | [place] [address] | | | [facility] | [...] + + | [facility] | [address] | [place] [address] | | | [facility]ENTER | [...] + + | [facility] | [address] | [place] [address] | | | [facility] | [...] + | [facility] | [address] [facility] [address] | [place] [address] | | | [facility]ICAL [facility]ENTER | [...] + + | Glucose | 146 (H)Comment: [place] | 65 - 99 mg/dL | [facility] | | | | [employer] | [...] SACRED | [address] | [place] [address] | | | [facility] [...] + + | [facility] | [address] | [place] [address] | | | [facility] | [...] + + | [facility] | [address] | [place] [address] | | | [facility] | [...] + + | AMILCAR CARDONA | [address] | [place] [address] | | | [facility] | | | | | LABORATORY | | | | + + + + + XR Abdomen 2 VW (03/24/2013 12:30 PM PDT) + + | Specimen | + + | | + + + + + | Narrative | Performed At | + + + | Exam Performed Location: [facility] ABDOMEN | MISCELANIOUS | | TWO VIEWS [...] free air. | | | S: SQ ([id number]) Signed by: ADELA TAMEZ MD | | + + + + + | Procedure Note | + + | Tim, Rad Conversion - 07/28/2013 8:28 PM PDT Exam Performed Location: [facility] | | at [facility] TWO VIEWSCLINICAL INFORMATION:Central abdominal pain since 0600 [...] forobstruction or free air.S: | | SQ ([id number]) Signed by: ADELA TAMEZ MD | | [...] | | | | | |S: SQ ([id number]) Signed by: ADELA TAMEZ MD | + + + +---------+ + + | Performing | Address | City/State/Zipcode | Phone Number | | Organization | | | | + +---------+ + + | MISCELLANEOUS LAB | | | [phone] | + +---------+ + + | MISCELANIOUS LAB | | | [phone] | + +---------+ + + Type and [...] + + | AMILCAR CARDONA | [address] | [place] [address] | | | [facility] | [...] + + | Glucose | 149 (H)Comment: [place] | 65 - 99 mg/dL | [facility] [...] + + | AMILCAR CARDONA | [address] | [place] [address] | | | [facility] [...] + | AMILCAR CARDONA | [address] | [place] [address] | | | [facility] | [...] + + | [facility] | [address] | [place] [address] | | | [facility] [...] + | AMILCAR CARDONA | [address] | [place] [address] | | | [facility] | | | | | LABORATORY | | | | + + + + + documented in this encounter Visit Diagnoses Not on filedocumented in this encounter"
--- OUTSIDE RECORDS SUMMARY | ~2019-09-08 | XMS | Encounter Summary ---
Demographics + + + | Address | [address] | | | [place] [address] | + + + | Home Phone [...] Author | [facility] | | | and Ankitana | + + + | Organization | [facility] [...] Team Providers + +------+ + | Care Hadoop Analyst Name | Role | Phone | [...] W | jovanni) | | | | [place], | [place], | | | | | [place] [address] | [place] [address] | | | | | [phone] | [phone] | | | | | | | [...] | | | | | | [place] [address] | | | | | | [phone] | | | | | | | | +--------+---------+ + + + documented as of this encounter Visit Diagnoses Not on filedocumented in this encounter"
--- OUTSIDE RECORDS SUMMARY | ~2019-09-08 | XMS | Encounter Summary ---
Demographics + + + | Address | [address] | | | [place] [address] | + + + | Home Phone [...] | [facility] | | | and Ankitana | + + + | Organization | [facility] | | [...] Providers + +------+ + | Care Auto Painter Helper Name | Role | Phone | + +------+ + | Kiran Oneill DO | PCP | | + +------+ + Encounter Details +--------+ + + + + | Date | Type | Department | Care Team | Description | +--------+ + + + + | 12/26/ | Abstract | [facility] | Provider, | Cardiac arrest with | | 2018 | | CARDIOLOGY [address] | [address] | ventricular | | | | [place], | [address] | fibrillation (H[place]) | | | | [place] [address] | [place] [address] | | | | | [phone] | | | +--------+ + + + [...] | | | | | | [place] [address] | | | | | | [phone] | | | | | | | | +--------+---------+ + + + documented as of this encounter Visit Diagnoses + + | Diagnosis | + + | Cardiac arrest with ventricular fibrillation (HCC) | + + documented in this encounter"
--- OUTSIDE RECORDS SUMMARY | ~2019-09-08 | XMS | Encounter Summary ---
Demographics + + + | Address | [address] | | | [place] [address] | + + + | Home Phone [...] | Author | [facility] | | | and Ankitana | + + + | Organization | [facility] | | | and [...] Team Providers + +------+ + | Care Button Sewing Machine Operator Name | Role | Phone | + +------+ + | Yolanda Lee | PCP | | + +------+ + Encounter Details +--------+ + + + + | Date | Type | Department | Care Team | Description | +--------+ + + + + | 03/12/ | Hospital | [facility] | Jesse Siddiqi MD | | | 2015 | Encounter | HEART MED CTR | [address], | | | | | NEUROLOGY [address] | 9th floor [place] | | | | | [place], [place] | [place] [address] | | | | | [address] | [phone] | | | | | [phone] | | | +--------+ + + + [...] W | | | | | | [place], | | | | | | [place] [address] | | | | | | [phone] | | | | | | | [...]
--- OUTSIDE RECORDS SUMMARY | ~2019-09-08 | XMS | Encounter Summary ---
Demographics + + + | Address | [address] | | | [place] [address] | + + + | Home Phone [...] | Author | [facility] | | | and Ankitana | + + + | Organization | [facility] [...] Team Providers + +------+ + | Care Construction Checker Name | Role | Phone | [...] | | | | [address] [facility] | [place] | | | | | [address] | [place] [address] | | | | | [address] | | | | | | [phone] | | | +--------+ + + + [...] | | | | | | [place] [address] | | | | | | [phone] | | | | | | | | +--------+---------+ + + + documented as of this encounter Visit Diagnoses Not on filedocumented in this encounter"
--- OUTSIDE RECORDS SUMMARY | ~2019-09-08 | XMS | Encounter Summary ---
Demographics + + + | Address | [address] | | | [place] [address] | + + + | Home Phone [...] Author | [facility] | | | and Ankitana | + + + | Organization | [facility] | [...] Team Providers + +------+ + | Care Building Supervisor Name | Role | Phone | [...] Question | | 2018 | | CARDIOLOGY [facility] | [address] | | | | | [address] | [address] [place], | | | | | [address] | [place] [address] | | | | | [address] | [phone] | | | | | [phone] | | | +--------+ + + + [...] | | | | | | [place] [address] | | | | | | [phone] | | | | | | | | +--------+---------+ + + + documented as of this encounter Visit Diagnoses Not on filedocumented in this encounter"
--- OUTSIDE RECORDS SUMMARY | ~2019-09-08 | XMS | Encounter Summary ---
Demographics + + + | Address | [address] | | | [place] [address] | + + + | Home Phone | | + + + | Preferred Language | Unknown | + + + | Marital Status | | + + + | Denominational Affiliation | 1041 | + + + | Race | Unknown | + + + | Ethnic Group | Unknown | + + + Author + + + | Author | [facility] | | | and Ankitana | + + + | Organization | [facility] | | | and Ankitana [...] Team Providers + +------+ + | Care Perioperative Tech Name | Role | Phone | + +------+ + | Kiran Oneill DO | PCP | | + +------+ + Encounter Details +--------+ + + + + | Date | Type | Department | Care Team | Description | +--------+ + + + + | 09/10/ | [facility] | [facility] | Seamus Richard, | | | 2018 | Encounter | MED CTR OR INTRA OP | [address] | | | | | [address] | [place] | | | | | [place] | [address] | | | | | [address] | | | | | | [phone] | | | +--------+ + + + [...] | | | | | | [place] [address] | | | | | | [phone] | | | | | | | [...] HOURS PRN, Pain, Starting | | | [facility] 09/10/18 at 1529, | | | Post-op/Phase II | | + +---+ | | | + +---+ | albuterol 2.5 mg/3 mL nebulizer | | | solution 2.5 mg 2.5 mg, | | | Nebulization, ONCE PRN, Wheezing, | | | Starting [facility] 09/10/18 at 1516, | | | For [...] HR < 40, | | | Starting [facility] 09/10/18 at 1516, For | | | [...] | | | | First dose on [facility] 09/10/18 at | | | | | [...] | | | | | CONTINUOUS, Starting [facility] 09/10/18 | | PM PST | | [...] Intravenous, PRN, Shivering, | | | Starting [facility] 09/10/18 at 1516, For | | | [...] ONCE | | | PRN, Nausea, Starting [facility] 09/10/18 | | | at 1516, For [...] | | | | | | Starting [facility] 09/10/18 at 1244, For | | | [...]
--- OUTSIDE RECORDS SUMMARY | ~2019-09-08 | XMS | Encounter Summary ---
Demographics + + + | Address | [address] | | | [place] [address] | + + + | Home Phone [...] Author | [facility] | | | and Ankitana | + + + | Organization | [facility] | [...] Providers + +------+ + | Care Senior Analyst Developer Name | Role | Phone | [...] Maki | | | | | | [place], [place] | | | | | | [address] | | | | | | [phone] | | | +--------+ + + + [...] | | | | | | [place] [address] | | | | | | [phone] | | | | | | | [...] E?MRN: | | | | | | [id number] | | | [id number] | | | riteri | | | [...] | | ectomy | | | , [place] | | | with | | | [...] | | | St. | | | [place] | | | y | | | [...] | | | St. | | | [place] | | | y H. | | [...] | | | St. | | | [place] | | | y H. | | [...] | | | St. | | | [place] | | | y H. | | [...] | | | St. | | | [place] | | | y H. | | [...] | | e of | | | yurok | | | | | | shanks [...] | | | St. | | | [place] | | | y H. | | [...] | | e of | | | yurok | | | | | | shanks [...] | | | St. | | | [place] | | | y H. | | [...] | | | N, | | | GREEN END DEPARTMENT SUPERVISOR-C | | | Nurse | | [...]
--- OUTSIDE RECORDS SUMMARY | ~2019-09-08 | XMS | Encounter Summary ---
Demographics + + + | Address | [address] | | | [place] [address] | + + + | Home Phone [...] | [facility] | | | and Ankitana | + + + | Organization | [facility] | [...] Team Providers + +------+ + | Care Personalized Living Manager Name | Role | Phone | [...] | CENTER [address] | | | 04/17/ | | [address] | [place] | | | 2006 | | [place] | [phone] | | | | | [address] | | | | | | [phone] | | | +--------+ + + + [...] W | | | | | | [place], | | | | | | [place] [address] | | | | | | [phone] | | | | | | | | +--------+---------+ + + + documented as of this encounter Visit Diagnoses Not on filedocumented in this encounter"
--- OUTSIDE RECORDS SUMMARY | ~2019-09-08 | XMS | Encounter Summary ---
Demographics + + + | Address | [address] | | | [place] [address] | + + + | Home Phone [...] | Author | [facility] | | | and Ankitana | + + + | Organization | [facility] | | | and [...] Team Providers + +------+ + | Care Burner Shaft Name | Role | Phone | + +------+ + | Kiran Oneill DO | PCP | | + +------+ + Encounter Details +--------+---------+ + + + | Date | Type | Department | Care Team | Description | +--------+---------+ + + + | 09/10/ | Surgery | [facility] | RichardSeamus W, | RIGHT EXTRACTION | | 2018 | | MED CTR OR INTRA OP | MD [address] | CATARACT WITH LENS | | | | [address] | [place], [place] | IMPLANT | | | | [place], [place] | [address] | | | | | [address] | | | | | | [phone] | | | +--------+---------+ + + + [...] W | | | | | | [place], | | | | | | [place] [address] | | | | | | [phone] | | | | | | | [...] PRN, Wheezing, | | | Starting [facility] 09/10/18 at 1516, | | | [...] < 40, | | | Starting [facility] 09/10/18 at 1516, For | | [...] | | Site | | PRN, Starting [facility] 09/10/18 at | | PM PST | [...] | | Surgical | | PRN, Starting [facility] 09/10/18 at | | 18 2:50 | [...] PRN, Shivering, | | | Starting [facility] 09/10/18 at 1516, For | | [...] | | | t | | Starting [facility] 09/10/18 at 1451, | | PM PST | | | | | Intra-op | | | | | | + +-------+ +--------+---+ + + +---+ | | | + +---+ | ondansetron (ZOFRAN) injection | | | 4 mg 4 mg, Intravenous, ONCE | | | PRN, Nausea, Starting [facility] 09/10/18 | | | at 1516, [...] | | | | | Starting [facility] 09/10/18 at 1244, For | | [...] | | Site | | PRN, Starting [facility] 09/10/18 at | | PM PST | [...]
--- OUTSIDE RECORDS SUMMARY | ~2019-09-08 | XMS | Encounter Summary ---
Demographics + + + | Address | [address] | | | [place] [address] | + + + | Home Phone [...] Author | [facility] | | | and Ankitana | + + + | Organization | [facility] [...] Team Providers + +------+ + | Care Fiber Machine Tender Name | Role | Phone [...] | | CARDIOLOGY [address] | Tiffanie STRAPPER OPERATOR [address] | | | | | [place], | [place], | | | | | [place] [address] | [place] [address] | | | | | [phone] | [phone] | | | | | | | [...] | | | | | | [place] [address] | | | | | | [phone] | | | | | | | [...]
--- OUTSIDE RECORDS SUMMARY | ~2019-09-08 | XMS | Encounter Summary ---
Demographics + + + | Address | [address] | | | [place] [address] | + + + | Home Phone [...] | Author | [facility] | | | and Ankitana | + + + | Organization | [facility] | [...] Team Providers + +------+ + | Care Escort Car Driver Name | Role | Phone | [...] [address] | | | | | [address] | [facility] | | | | | [facility] | [place] [address] | | | | | [place] | [phone] | | | | | [address] | | | | | | [phone] | | | +--------+ + + + [...] | | | | | | [place] [address] | | | | | | [phone] | | | | | | | | +--------+---------+ + + + documented as of this encounter Visit Diagnoses Not on filedocumented in this encounter"
--- OUTSIDE RECORDS SUMMARY | ~2019-09-08 | XMS | Encounter Summary ---
Demographics + + + | Address | [address] | | | [place] [address] | + + + | Home Phone [...] Author | [facility] | | | and Ankitana | + + + | Organization | [facility] | [...] Team Providers + +------+ + | Care Check Clerk Name | Role | Phone | [...] | | | Hospitalists [address] | | | | | [address] [place], [place] | [place] [address] | | | | | [address] | [phone] | | | | | [phone] | | | +--------+ + + + [...] | | | | | | [place] [address] | | | | | | [phone] | | | | | | | | +--------+---------+ + + + documented as of this encounter Visit Diagnoses Not on filedocumented in this encounter"
--- OUTSIDE RECORDS SUMMARY | ~2019-09-08 | XMS | Encounter Summary ---
Demographics + + + | Address | [address] | | | [place] [address] | + + + | Home Phone [...] + | Author | [facility] | | | and Ankitana | + + + | Organization | [facility] | | [...] Team Providers + +------+ + | Care Children'S Aide Name | Role | Phone | + [...] | LABORATORY [address] | [place] | | | | | [address] [place] | [address] | | | | | [address] | | | | | | [phone] | | | +--------+ + + + [...] W | | | | | | [place], | | | | | | [place] [address] | | | | | | [phone] | | | | | | | [...] + + + | [facility] | [address] | [place] [address] | | | [facility] | | | | | LABORATORY | | | | + + + + + | [facility] | | | | | [facility] | | | | | LABORATORY | | | | + + + + + documented in this encounter Visit Diagnoses Not on filedocumented in this encounter"
--- OUTSIDE RECORDS SUMMARY | ~2019-09-08 | XMS | Encounter Summary ---
Demographics + + + | Address | [address] | | | [place] [address] | + + + | Home Phone [...] Author | [facility] | | | and Ankitana | + + + | Organization | [facility] | | | and Ankitana [...] Team Providers + +------+ + | Care Finished Goods Planner Name | Role | Phone | + [...] | CENTER [address] | | | 04/17/ | | [address] | [place] | | | 2006 | | [place] | [phone] | | | | | [address] | | | | | | [phone] | | | +--------+ + + + [...] W | | | | | | [place], | | | | | | [place] [address] | | | | | | [phone] | | | | | | | | +--------+---------+ + + + documented as of this encounter Visit Diagnoses Not on filedocumented in this encounter"
--- OUTSIDE RECORDS SUMMARY | ~2019-09-08 | XMS | Encounter Summary ---
Demographics + + + | Address | [address] | | | [place] [address] | + + + | Home Phone [...] | Author | [facility] | | | and Ankitana | + + + | Organization | [facility] | | [...] Team Providers + +------+ + | Care Barrel Roller Name | Role | Phone | + +------+ + | Yolanda Lee | PCP | | + +------+ + Encounter Details +--------+ + + + + | Date | Type | Department | Care Team | Description | +--------+ + + + + | 03/05/ | Hospital | [facility] | Jesse Siddiqi MD | Cellulitis and | | 2015 | Encounter | HEART MED CTR | [address], | abscess of hand, | | | | CARDIAC MEDICAL [address] | 9th floor [place], | except fingers and | | | | [address] [place], | [place] [address] | thumb; Bacteremia | | | | [place] [address] | [phone] | due to Streptococcus | | | | [phone] | | / Sepsis | +--------+ + [...] | | | | | | [place] [address] | | | | | | [phone] | | | | | | | [...]
--- OUTSIDE RECORDS SUMMARY | ~2019-09-08 | XMS | Encounter Summary ---
Demographics + + + | Address | [address] | | | [place] [address] | + + + | Home Phone [...] | Author | [facility] | | | and Ankitana | + + + | Organization | [facility] | [...] Team Providers + +------+ + | Care Extrusion Supervisor Name | Role | Phone | + +------+ + | [facility] | PCP | | + +------+ + Reason for Referral Diagnostic/Screening (Routine) +--------+--------+ + + + + | Status | Reason | Specialty | Diagnoses / | Referred By | Referred To | | | | | Procedures | Contact | Contact | +--------+--------+ + + + + | Closed | | Radiology | Diagnoses | Mani Thomposn | Wsh Echo | | | | | | K, MD [address] | [place] | | | | | Cardiomyopat | [place] | [address] | | | | | hy (HCC) | [address] | [address] | | | | | Procedures | [address] | [place], [place] | | | | | ECHO | [place], | [address] | | | | | Complete | [place] | Phone: | | | | | | [address] | [phone] | | | | | | | Fax: | | | | | | | [phone] | +--------+--------+ + + + + Reason [...] [address] | | | | | north fork | [address] | [place], | | | | | coronary | [address] | [place] [address] | | | | | artery | [place] | | | | | | 06/18/2013 fm | [address] | | | | | | per SKL dx | | | | | | | of 414.01 | | | | | | | Coronary | | | | | | | atherosclero | | | | | | | sis north fork | | | | | | | [...] | | 2013 | Visit | CARDIOLOGY [facility] | [address] | disease (Primary | | | | HI[address] | [address] | Dx); Cardiomyopathy | | | | [address] [place], [place] | [place] | ([facility]); Ischemic | | | | [address] | [address] | cardiomyopathy; | | | | [phone] | | Hypertension; | | | | [...] I will repeat another echo to [facility] her LVEF for further improvement. PATIENT NAME: Anne Marie Pichardo : 1955: AGE: 58 y.o. PRIMARY CARE: [facility] CHIEF COMPLAINT: Chief Complaint Patient presents with [...] I will repeat another echo to [facility] her LVEF for further improvement. FOLLOWUP No [...] MD, FACC 01/13/2014, 15:08 documented in this enccox walnut lawner Plan of Treatment +--------+---------+ + + + | Date | Type | Specialty | Care Team | Description | +--------+---------+ + + + | 10/28/ | Office | Cardiology | Carol, | | | 2020 | Visit | | SALVATROE Moreno [address] | | | | | | [place], | | | | | | [place] [address] | | | | | | [phone] | | | | | | | [...] MARIE PICHARDO | | | Date: 01/13/2014MRN: [id number] Patient Location: [place] | | | [facility]OB[facility] 1955 Age: [...] Yolanda | | | Zoila Leehocardiographer: Edson [id number]: | | |Great Vessels: | | |The [...] | |Referring Physician: SALVATORE Maldonado | | |V Belt Inspector: Edson Jimenez | | |[id number]: | | | | | + + -+ + + | Procedure Note | + + | Itm, Rad Results In - 01/14/2014 8:09 AM PDT | | Adult | | Echo | | Report | | | | Name: ANNE MARIE PICHARDO Date: 01/13/2014 | | Patient Location: [facility] | | : 1955 Age: [...] | Referring Physician: SALVATORE Maldonado | | V Belt Inspector: Edson Jimenez | | [id number]: | + + + + | Transcriptions | + + | Omi White - 01/14/2014 12:00 AM PDT | + + + +---------+ + + | Performing | Address | City/State/Zipcode | Phone Number | | Organization | | | | + +---------+ + + | MISCELLANEOUS LAB | | | [phone] | + +---------+ + + | MISCELANIOUS LAB | | | [phone] | + +---------+ + + documented in this encounter Visit Diagnoses + + | Diagnosis | + + | Coronary artery disease - Primary Coronary atherosclerosis of unspecified type of | | vessel, north fork or graft | + + | Cardiomyopathy (HCC) Other primary cardiomyopathies | + + | Ischemic cardiomyopathy Other specified forms of chronic ischemic heart disease | + + | Hypertension Unspecified essential hypertension | + + | Dyslipidemia Other and unspecified hyperlipidemia | + + documented in this encounter
--- OUTSIDE RECORDS SUMMARY | ~2019-09-08 | XMS | Encounter Summary ---
Demographics + + + | Address | [address] | | | [place] [address] | + + + | Home Phone [...] Author | [facility] | | | and Ankitana | + + + | Organization | [facility] | | | [...] Team Providers + +------+ + | Care Asphalt Plant Worker Name | Role | Phone | [...] | | | | [address] | [phone] | | | | | [place] | | | | | | [address] | | | | | | [phone] | | | +--------+ + + + [...] | | | | | | [place] [address] | | | | | | [phone] | | | | | | | | +--------+---------+ + + + documented as of this encounter Visit Diagnoses Not on filedocumented in this encounter"
--- OUTSIDE RECORDS SUMMARY | ~2019-09-08 | XMS | Encounter Summary ---
Demographics + + + | Address | [address] | | | [place] [address] | + + + | Home Phone [...] Author | [facility] | | | and Ankitana | + + + | Organization | [facility] | | [...] Team Providers + +------+ + | Care Entry Level Automotive Technician Name | Role | Phone | [...] | | | Hospitalists [address] | | | | | [address] [place], [place] | [place] [address] | | | | | [address] | [phone] | | | | | [phone] | | | +--------+ + + + [...] | | | | | | [place] [address] | | | | | | [phone] | | | | | | | | +--------+---------+ + + + documented as of this encounter Visit Diagnoses Not on filedocumented in this encounter"
--- OUTSIDE RECORDS SUMMARY | ~2019-09-08 | XMS | Encounter Summary ---
Demographics + + + | Address | [address] | | | [place] [address] | + + + | Home Phone [...] | Author | [facility] | | | and Ankitana | + + + | Organization | [facility] | | [...] Team Providers + +------+ + | Care Materials And Corrosion Engineer Name | Role | Phone | [...] | | | CENTER [address] | [place], [place] | | | | | [place] | [address] | | | | | [place] | | | | | | [address] | | | | | | [phone] | | | +--------+ + + + [...] W | | | | | | [place], | | | | | | [place] [address] | | | | | | [phone] | | | | | | | [...] + + + | Exam Performed Location: [facility] | MISCELANIOUS | | CT ABDOMEN [...] 07/28/2013 9:19 PM PDT Exam Performed Location: [facility]VIS WITH CONTRASTCLINICAL INFORMATION:Right [...] + | MISCELLANEOUS LAB | | | [phone] | + +---------+ + + | MISCELANIOUS LAB | | | [phone] | + +---------+ + + Urinalysis With [...] - 1.030 | [facility] | | | [place] | | | [facility] | | [...] [facility] | [address] | [place] [address] | | | [facility] | | [...] + + + | [facility] | [address] | [place] [address] | | | [facility] | | [...] + + + | [facility] | [address] | [place] [address] | | | [facility] | | | | | LABORATORY [...] + + + | [facility] | [address] | [place] [address] | | | [facility] | | | | | LABORATORY | | | | + + + + + documented in this encounter Visit Diagnoses Not on filedocumented in this encounter"
--- OUTSIDE RECORDS SUMMARY | ~2019-09-08 | XMS | Encounter Summary ---
Demographics + + + | Address | [address] | | | [place] [address] | + + + | Home Phone [...] | Author | [facility] | | | and Ankitana | + + + | Organization | [facility] [...] Team Providers + +------+ + | Care Mold Laminator Name | Role | Phone | + +------+ + PCP | Unavailable | + +------+ + Encounter Details +--------+ + + + + | Date | Type | Department | Care Team | Description | +--------+ + + + + | 07/04/ | Orders Only | [facility] | [place], | | | 2007 | | HEART MED CTR | [facility] | | | | | LABORATORY [address] | [place] | | | | | [address] [place] | [address] | | | | | [address] | | | | | | [phone] | | | +--------+ + + + [...] | | | | | | [place] [address] | | | | | | [phone] | | | | | | | [...] | | 07/04/2008 15:57 SP TYPE: CYTOLOGY [facility] DR: TISSUES: | LABORATORY | | Elbow, [...] + + + | [facility] | [address] | [place] [address] | | | [facility] | | [...]
--- OUTSIDE RECORDS SUMMARY | ~2019-09-08 | XMS | Encounter Summary ---
Demographics + + + | Address | [address] | | | [place] [address] | + + + | Home Phone [...] [facility] | | | and Ankitana | + + + | Organization | [facility] | | | [...] Team Providers + +------+ + | Care Mentally Retarded Teacher Name | Role | Phone | [...] | | | | | | | ([facility]) | | | | | | | [...] | OP [address] | [place], [place] | | | | | [place], [place] | [phone] | | | | | [address] | | | | | | [phone] | Aba Sampson T, | | | | | | MD [address] | | | | | | [place], [place] | | | | | | [phone] | | | | | | | [...] normal Trace | | | | | MT. 8. Visible portions of ascending aorta and [...] 06/12/18 1200 by | | eral | [id number] catheter system; | Monica Allison RN | [...] | | | procedure documentation); Mask | PIPE MANUFACTURE SUPERVISOR | | | | Ventilation: EZ; Airway [...] | | | Yes; Yes; All; [place]; Service Desk Lead; | | | | | Ashly Bradshaw [...] | | | | | | [place] [address] | | | | | | [phone] | | | | | | | [...] this time Person | | | recording: dry cleaning supervisor Performed by: ASHLY BRADSHAW Location | | [...] noted at this time | |Person recording: dry cleaning supervisor | |Performed by: ASHLY BRADSHAW | |Location [...] fem art | | for line placement. [facility] | |LDA Gauge Size: 5 fr. [...] video laryngoscope | | | Performing provider: SLYVIA GARBER Assisted by: ASHLY BRADSHAW | | [...] | | | | | PRN, Starting [facility] 06/11/18 at 1057, | | PM [...] 18 12:52 | | | | | Marcyarmen 06/11/18 at 1006, Anesthesia | | PM [...]
--- OUTSIDE RECORDS SUMMARY | ~2019-09-08 | XMS | Encounter Summary ---
Demographics + + + | Address | [address] | | | [place] [address] | + + + | Home Phone [...] | Author | [facility] | | | and Ankitana | + + + | Organization | [facility] | | | and Ankitana [...] Team Providers + +------+ + | Care Router Operator Radial Name | Role | Phone | + [...] + + | 02/25/ | Telephone | [place] | Vida Romeo | Hospital Follow-up | | 2014 | | Internal Medicine | ELÍAS Sharma | | | | | Hospitalists [address] | | | | | [address] [address] | | | | | | [address] | | | | | | [phone] | | | +--------+ + + + [...] | | | | | | [place] [address] | | | | | | [phone] | | | | | | | | +--------+---------+ + + + documented as of this encounter Visit Diagnoses Not on filedocumented in this encounter"
--- OUTSIDE RECORDS SUMMARY | ~2019-09-08 | XMS | Encounter Summary ---
Demographics + + + | Address | [address] | | | [place] [address] | + + + | Home Phone [...] Author | [facility] | | | and Ankitana | + + + | Organization | [facility] [...] Providers + +------+ + | Care Dry Wall Installer Name | Role | Phone | [...] | LABORATORY [address] | [place] | | | | | [address] [place] | [address] | | | | | [address] | | | | | | [phone] | | | +--------+ + + + [...] W | | | | | | [place], | | | | | | [place] [address] | | | | | | [phone] | | | | | | | [...] + + + | [facility] | [address] [facility] | [place] [address] | | | [facility] | | | | | LABORATORY | | | | + + + + + | [facility] | | | [facility] | | | | | LABORATORY | | | | + + + + + documented in this encounter Visit Diagnoses Not on filedocumented in this encounter"
--- OUTSIDE RECORDS SUMMARY | ~2019-09-08 | XMS | Encounter Summary ---
Demographics + + + | Address | [address] | | | [place] [address] | + + + | Home Phone [...] | Author | [facility] | | | and Ankitana | + + + | Organization | [facility] | [...] Team Providers + +------+ + | Care Home Visitor Name | Role | Phone | + [...] | | | | EMERGENCY CENTER | [place] [address] | Shortness of breath | | | | [address] | [phone] | | | | | [place], [place] | | | | | | [address] | | | | | | [phone] | | | +--------+ + + + [...] of this encounter Discharge Instructions Instructions Seamus rCuz, - 10/27/2016Thank you for entrusting your care to the Emergen cy Department at [place]. We hope you get better soon. Based [...] sent through Care Everywhere.CHEST PAIN, NON CARDIAC (ALBANIAN)SHORTNESS OF BREATH (DYSPNEA) (ALBANIAN)documented in this encounter Medications at Time of [...] | | | | | | [place] [address] | | | | | | [phone] | | | | | | | [...] + + | [facility] | [address] | [place] [address] | | | [facility] | | | | | LABORATORY | [...] | chest after the administration of 80ml dctr526ldgurqchssa contrast. | | | 3D MIP thin [...] after the administration of | | 80ml [id number] contrast. 3D MIP thin slab images and [...] + + | [facility] | [address] | [place] [address] | | | [facility] | [...] SACRED | [address] | [place] [address] | | | [facility] [...] + + | Y[facility]ELISDEMIK[facility] | [address] | [place] [address] | | | [facility] | | | | | LABORATORY | [...] + + | [facility] | [address] | [place] [address] | | | [facility] | | | | | LABORATORY | [...] + + | [facility] | [address] | [place] [address] | | | [facility] | [...] + + | [facility] | [address] | [place] [address] | | | [facility] | | | | | LABORATORY | [...] + | [facility] | [address] | [place] [address] | | | [facility] | | | | | LABORATORY | [...] + + | [facility] | [address] | [place] [address] | | | [facility] | [...] + + | Glucose | 147 (H)Comment: Kittitian | 65 - 99 mg/dL | [facility] [...] [address] | [place] [address] | | | [facility] [...] + + | [facility] | [address] | [place] [address] | | | [facility] | | | | | LABORATORY | [...]
--- OUTSIDE RECORDS SUMMARY | ~2019-09-08 | XMS | Encounter Summary ---
Demographics + + + | Address | [address] | | | [place] [address] | + + + | Home Phone [...] [facility] | | | and Ankitana | + + + | Organization | [facility] | | | and [...] [address] | | | | | [place], | [place], | | | | | [place] [address] | [place] [address] | | | | | [phone] | [phone] | | | | | | | [...] W | | | | | | [place], | | | | | | [place] [address] | | | | | | [phone] | | | | | | | [...]
--- OUTSIDE RECORDS SUMMARY | ~2019-09-08 | XMS | Encounter Summary ---
Demographics + + + | Address | [address] | | | [place] [address] | + + + | Home Phone [...] | Author | [facility] | | | and Ankitana | + + + | Organization | [facility] | [...] Providers + +------+ + | Care Marketing Strategy Lead Name | Role | Phone | + +------+ + | Yolanda Lee | PCP | | + +------+ + Encounter Details +--------+ + + + + | Date | Type | Department | Care Team | Description | +--------+ + + + + | 02/25/ | Hospital | [facility] | Jesse Siddiqi MD | Cellulitis and | | 2015 | Encounter | [facility] | [address], | abscess of hand, | | | | ORTHOPEDICS [address] | [address] floor [place], | except fingers and | | | | [address] [place], [place] | [place] [address] | thumb; Bacteremia | | | | [address] | [phone] | due to Streptococcus | | | | [phone] | | / Sepsis | +--------+ + [...] | | | | | | [place] [address] | | | | | | [phone] | | | | | | | [...]
--- OUTSIDE RECORDS SUMMARY | ~2019-09-08 | XMS | Encounter Summary ---
Demographics + + + | Address | [address] | | | [place] [address] | + + + | Home Phone [...] Author | [facility] | | | and Ankitana | + + + | Organization | [facility] | | | and Ankitana [...] Providers + +------+ + | Care Carpet Floor Layer Apprentice Name | Role | Phone | + +------+ + | Yolanda Lee | PCP | | + +------+ + Encounter Details +--------+ + + + + | Date | Type | Department | Care Team | Description | +--------+ + + + + | 03/06/ | Hospital | [facility] | Jesse Siddiqi MD | Cellulitis and | | 2015 - | Encounter | [facility] OP | [address], | abscess of hand, | | | | INFUSION [address] | 9th floor [place], | except fingers and | | 03/08/ | | Ave [place], [place] | [place] [address] | thumb; Bacteremia | | 2015 | | [address] | [phone] | due to Streptococcus | | | | [phone] | | / Sepsis | +--------+ + [...] | | | | | | [place] [address] | | | | | | [phone] | | | | | | | [...]
[~2019-09-08 17:37] MED LIST changes: +ULTRAM50 MG PO
--- OUTSIDE RECORDS SUMMARY | 2019-09-08 17:40 | XMS ---
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 GIL Security Pals Specialist Events No recent Security Events currently on file CRITERIA MET - [facility] - [facility] - 2 Visits in 30 Days CARE PROVIDERS EMILY CONDON [facility] 07/28/2018-Current PHONE: Unknown MELODIE SILVA Nurse Practitioner 04/06/2019-Current PHONE: [phone] NON ESTABLISHED Primary Care Current PHONE: [phone] Care Guidelines exist for the following facilities: [facility] ( 02/16/2018 ) [facility] ( 03/06/2015 ) Care History Infection/Chronic 09/25/2015 [facility] History of MRSA. Most recent positive culture of hand abscess 09/19/15. Medical/Surgical 04/06/2019 [facility] - PATIENT HAS NOT SEEN PCP SINCE 01/12/19. - PLEASE ADVISE PATIENT OF FOLLOW UP WITH PCP. - PATIENT WAS REFERRED TO CARDIAC REHAB IN THE PAST. 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 03/31/2019 [facility] PATIENT IS A [facility] MEMBER. PLEASE REFER PATIENT TO [facility] FOR NON EMERGENT MEDICAL NEEDS. [facility] CAN SEE PATIENTS SAME DAY FOR APTS IF PATIENT CALLS FIRST THING IN THE MORNING. 07/06/2018 [facility] - PATIENT HAD AN APT WITH [employer] 07/06/18 @ 10:00AM. - [facility] IS WAITING ON PASCUA YAQUI INCOME VERIFICATION FROM PATIENT IN ORDER TO HELP PATIENT WITH MEDICAID BENEFITS IN THE STATE OF [place], PATIENT IS AWARE OF THIS VERIFICATION NEEDED BUT HAS STATED THAT INCOME VERIFICATION SHOULD BE EXEMPT DUE TO LAND PLANE SETTLEMENT. Substance Use/Overdose 12/28/2018 [facility] - HX OF IV DRUG USAGE- PLEASE BE ADVISED - USE EXTREME CAUTION IN GIVING NARCOTICS TO THIS PATIENT. - Avoid Discharge Narcotic prescriptions if at all possible. Physician Discretion. 09/25/2015 [facility] Noted hx of IV drug use - denies any recent use as of September 2015. E.D. VISIT COUNT (12 MO.) 1 [facility] Arlyn Metz 7 [facility] TOTAL 8 NOTE: Visits indicate total known visits. ED/UCC VISIT TRACKING (12 MO.) 09/08/2019 17:37 [facility] Fernandez TYPE: Emergency COMPLAINT: - ABD PAIN 09/08/2019 14:03 [facility] Lashay HINES TYPE: Emergency DIAGNOSES: - severe abd pain 08/21/2019 08:59 [facility] [place] TYPE: Emergency COMPLAINT: - VOMITING, ABD PAIN DIAGNOSES: - Essential (primary) hypertension - Nicotine dependence, unspecified, uncomplicated - Nausea with vomiting, unspecified - terminal press operator (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 of opiate analgesic - terminal press operator (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 of aspirin - Unspecified abdominal pain - Other chronic pain - Other assistant terminal manager (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 03/31/2019 15:34 [facility] [place] TYPE: Emergency COMPLAINT: - VOMITING,NAUSEA,ABD PAIN DIAGNOSES: - Gastro-esophageal reflux disease without esophagitis - Unspecified abdominal pain - Other assistant terminal manager (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 - Nausea with vomiting, unspecified - Nicotine dependence, unspecified, uncomplicated - intermediate (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 of aspirin - Nicotine dependence, cigarettes, uncomplicated - Essential (primary) hypertension 03/30/2019 15:14 [facility] [place] TYPE: Emergency COMPLAINT: - VOMITING,ABD PAIN DIAGNOSES: - Left lower quadrant pain - Nicotine dependence, unspecified, uncomplicated - Presence of coronary angioplasty implant and graft - Presence of aortocoronary bypass graft - Other assistant terminal manager (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 - terminal press operator (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 of aspirin - Essential (primary) hypertension - Acquired absence of both cervix and uterus 12/31/2018 11:52 [facility] [place] TYPE: Emergency COMPLAINT: - VOMITING DIAGNOSES: - Gastro-esophageal reflux disease without esophagitis - Dvtrcli of intest, part unsp, w/o perf or abscess w/o bleed - Acquired absence of both cervix and uterus - Athscl heart disease of [place] coronary artery w/o ang pctrs - Essential (primary) hypertension - Other shelter (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 - Ischemic cardiomyopathy - Lower abdominal pain, unspecified - Presence of aortocoronary bypass graft - intermediate (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 of aspirin - Presence of coronary angioplasty implant and graft 12/26/2018 22:01 [facility] [place] TYPE: Emergency COMPLAINT: - VOMITTING/ABD PAIN DIAGNOSES: - Ischemic cardiomyopathy - Nicotine dependence, unspecified, uncomplicated - intermediate (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 of aspirin - Athscl heart disease of [place] coronary artery w/o ang pctrs - Presence of aortocoronary bypass graft - Noninfective gastroenteritis and colitis, unspecified - Other shelter (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 - Gastro-esophageal reflux disease without esophagitis - Nausea with vomiting, unspecified - Essential (primary) hypertension - Presence of coronary angioplasty implant and graft 10/21/2018 19:52 [facility] [place] TYPE: Emergency COMPLAINT: - ABD PAIN DIAGNOSES: - Lower abdominal pain, unspecified - Noninfective gastroenteritis and colitis, unspecified - terminal press operator (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 of aspirin - Nicotine dependence, unspecified, uncomplicated - Essential (primary) hypertension - Gastro-esophageal reflux disease without esophagitis - Other shelter (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 INPATIENT VISIT TRACKING (12 MO.) No inpatient visits to display in this time frame [email or web address]
--- NOTE | 2019-09-09 20:14 | EKG ---
[facility] [address] [facility] [place], [place] [address] Signed Sinus rhythm with occasional premature ventricular complexes Possible Left atrial enlargement Right bundle branch block Possible Inferior infarct , age undetermined Abnormal ECG No previous ECGs available Confirmed by BENNY SYED DO ([id number]) on 09/09/2019 8:14:00 PM Electronically Signed By: BENNY SYED DO 09/09/192013 PATIENT NAME: ANNE MARIE GIL Electrocardiogram DATE OF : 53 PHYSICIAN: BENNY SYED DO REPORT #: [id number] REPORT IS CONFIDENTIAL AND NOT TO BE RELEASED WITHOUT AUTHORIZATION
== END 2019-09-08 20:22 | disposition left against medical advice (07) ==
LOC: ED 17:37
DX: I21.4 Non-ST elevation (NSTEMI) myocardial infarction (principal); R10.9 Unspecified abdominal pain; I10 Essential (primary) hypertension; F17.200 Nicotine dependence, unspecified, uncomplicated; Z79.899 Other long term (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
CPT/HCPCS: 36415; 71045; 74018; 80053; 83690; 83735; 84484; 85025; 93005; 93010; 99284-25

== ENCOUNTER 2020-09-20 21:47 | Emergency (ER) | payer MEDICARE, OTHER ==
[~2020-09-20] VITALS: Ht 172.7 cm; Wt 66.0 kg
--- OUTSIDE RECORDS SUMMARY | 2020-09-20 21:50 | XMS ---
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 GIL Security Blast Furnace Checker Events 1 event(s) in the past 18 months Most recent security events: Elopement at [facility] 09/08/2019 17:37 - Patient eloped before treatment completed. Details: PATIENT LEFT AMA. CRITERIA MET - Group Notification - PDMP CARE PROVIDERS EMILY CONDON [facility] 07/28/2018-Current PHONE: Unknown MELODIE SILVA Nurse Practitioner 04/06/2019-Current PHONE: [phone] Care Guidelines exist for the following facilities: [facility] ( 02/16/2018 ) [facility] ( 03/06/2015 ) Care History Infection/Chronic 09/25/2015 [facility] History of MRSA. Most recent positive culture of hand abscess 09/19/15. Substance Use/Overdose 12/28/2018 [facility] - HX OF IV DRUG USAGE- PLEASE BE ADVISED - USE EXTREME CAUTION IN GIVING NARCOTICS TO THIS PATIENT. - Avoid Discharge Narcotic prescriptions if at all possible. Physician Discretion. 09/25/2015 [facility] Noted hx of IV drug use - denies any recent use as of September 2015. Medical/Surgical 04/06/2019 [facility] - PATIENT HAS NOT SEEN PCP SINCE 01/12/19. - PLEASE ADVISE PATIENT OF FOLLOW UP WITH PCP. - PATIENT WAS REFERRED TO CARDIAC REHAB IN THE PAST. 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 PLEASE REFER PATIENT TO [facility] FOR NON EMERGENT MEDICAL NEEDS. [facility] CAN SEE PATIENTS SAME DAY FOR APTS IF PATIENT CALLS FIRST THING IN THE MORNING. 07/06/2018 [facility] - PATIENT HAD AN APT WITH [employer] 07/06/18 @ 10:00AM. - [facility] IS WAITING ON [place] INCOME VERIFICATION FROM PATIENT IN ORDER TO HELP PATIENT WITH MEDICAID BENEFITS IN THE STATE OF [place], PATIENT IS AWARE OF THIS VERIFICATION NEEDED BUT HAS STATED THAT INCOME VERIFICATION SHOULD BE EXEMPT DUE TO LAND PLANE SETTLEMENT. E.D. VISIT COUNT (12 MO.) 4 Agnieszka Rouse M.C. 1 [facility]. TOTAL 5 NOTE: Visits indicate total known visits. ED/UCC VISIT TRACKING (12 MO.) 09/20/2020 21:47 NEVA Fernandez TYPE: Emergency COMPLAINT: - RT EAR PAIN [facility]2020 [facility] DIAGNOSES: - Fall - Fall/Right Hip Pain - Hip Pain - Fracture of unspecified part of neck of right femur, initial encounter for closed fracture 11/29/2019 15[facility] DIAGNOSES: - Non-ST elevation (NSTEMI) myocardial infarction - abdominal pain 11/29/2019 [facility] DIAGNOSES: - Procedure and treatment not carried out due to patient leaving prior to being seen by health care provider - abdominal pain 10/23/2019 10:56 [facility] DIAGNOSES: - Chest Pain - Unspecified viral hepatitis C without hepatic coma - Other forms of angina pectoris - cp, vomiting - Shortness of Breath - Gastro-esophageal reflux disease without esophagitis - Emesis - Essential (primary) hypertension - Acute ischemic heart disease, unspecified INPATIENT VISIT TRACKING (12 MO.) 06/29/2020 [facility] DIAGNOSES: - Essential (primary) hypertension - Bipolar disorder, unspecified - Displaced intertrochanteric fracture of right femur, initial encounter for closed fracture - Presence of aortocoronary bypass graft - Fracture of unspecified part of neck of right femur, initial encounter for closed fracture - Opioid dependence, uncomplicated 11/29/2019 15:18 [facility] Care DIAGNOSES: - Essential (primary) hypertension - Non-ST elevation (NSTEMI) myocardial infarction - Presence of aortocoronary bypass graft - Chronic combined systolic (congestive) and diastolic (congestive) heart failure 10/23/2019 10:56 [facility] DIAGNOSES: - Gastro-esophageal reflux disease without esophagitis - Other forms of angina pectoris - Unspecified viral hepatitis C without hepatic coma - Acute ischemic heart disease, unspecified - Essential (primary) hypertension [email or web address]
[2020-09-21] MEDS ORDERED: AUGMENTIN 875-1 EACH PO (00:35)
[2020-09-21] MEDS ORDERED: NORCO 5-325 TA1 EACH PO (00:35)
== END 2020-09-21 00:54 | disposition home or self-care (01) ==
LOC: ED 21:47
DX: H65.91 Unspecified nonsuppurative otitis media, right ear (principal); I10 Essential (primary) hypertension; K21.9 Gastro-esophageal reflux disease without esophagitis; F17.200 Nicotine dependence, unspecified, uncomplicated; Z79.899 Other long term (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
CPT/HCPCS: 99282

== ENCOUNTER 2020-09-27 06:22 | Emergency (ER) | payer MEDICARE, OTHER ==
[~2020-09-27] VITALS: Ht 172.7 cm; Wt 68.0 kg
[~2020-09-27 06:22] MED LIST changes: +AUGMENTIN 875-1 EACH PO
--- OUTSIDE RECORDS SUMMARY | 2020-09-27 06:24 | XMS ---
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 Details: PATIENT LEFT AMA. CRITERIA MET - Group Notification - PDMP - [facility] - 2 Visits in 30 Days CARE PROVIDERS EMILY CONDON [facility] 07/28/2018-Current PHONE: Unknown MELODIE SILVA Nurse Practitioner 04/06/2019-Current PHONE: [phone] Care Guidelines exist for the following facilities: [facility] ( 02/16/2018 ) ( 03/06/2015 ) Care History Medical/Surgical 04/06/2019 [facility] - PATIENT HAS NOT SEEN PCP SINCE 01/12/19. - PLEASE ADVISE PATIENT OF FOLLOW UP WITH PCP. - PATIENT WAS REFERRED TO CARDIAC REHAB IN THE PAST. 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 PLEASE REFER PATIENT TO [facility] FOR NON EMERGENT MEDICAL NEEDS. [facility] CAN SEE PATIENTS SAME DAY FOR APTS IF PATIENT CALLS FIRST THING IN THE MORNING. 07/06/2018 [facility] - PATIENT [facility] 07/06/18 @ 10:00AM. - [facility] IS WAITING ON [place] INCOME VERIFICATION FROM PATIENT IN ORDER TO HELP PATIENT WITH MEDICAID BENEFITS IN THE STATE OF [place], PATIENT IS AWARE OF THIS VERIFICATION NEEDED BUT HAS STATED THAT INCOME VERIFICATION SHOULD BE EXEMPT DUE TO [employer] [employer]ANE SETTLEMENT. Substance Use/Overdose 12/28/2018 [facility] - HX OF IV DRUG USAGE- PLEASE BE ADVISED - USE EXTREME CAUTION IN GIVING NARCOTICS TO THIS PATIENT. - Avoid Discharge Narcotic prescriptions if at all possible. Physician Discretion. 09/25/2015 [facility] Noted hx of IV drug use - denies any recent use as of September 2015. Infection/Chronic 09/25/2015 [facility] History of MRSA. Most recent positive culture of hand abscess 09/19/15. E.D. VISIT COUNT (12 MO.) 4 Agnieszka Rouse M.C. 2 [facility]. TOTAL 6 NOTE: Visits indicate total known visits. ED/UCC VISIT TRACKING (12 MO.) 09/27/2020 06:22 NEVA Novak [place] TYPE: Emergency COMPLAINT: - RT HIP PAIN 09/20/2020 21:47 NEVA Novak [place] TYPE: Emergency COMPLAINT: - RT EAR PAIN DIAGNOSES: - Nicotine dependence, unspecified, uncomplicated - Otalgia, right ear - Essential (primary) hypertension - Unspecified nonsuppurative otitis media, right ear - Other fpc (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 - Gastro-esophageal reflux disease without esophagitis 06/29/2020 18:[address] [place] TYPE: Emergency DIAGNOSES: - Fall - Fall/Right Hip Pain - Hip Pain - Fracture of unspecified part of neck of right femur, initial encounter for closed fracture 11/29/2019 [facility] DIAGNOSES: - Non-ST elevation (NSTEMI) myocardial infarction - abdominal pain 11/29/2019 13:58 [facility] DIAGNOSES: - Procedure and treatment not carried out due to patient leaving prior to being seen by health care provider - abdominal pain 10/23/2019 10:[address] [facility] [place] TYPE: Emergency DIAGNOSES: - Chest Pain - Unspecified viral hepatitis C without hepatic coma - Other forms of angina pectoris - cp, vomiting - Shortness of Breath - Gastro-esophageal reflux disease without esophagitis - Emesis - Essential (primary) hypertension - Acute ischemic heart disease, unspecified INPATIENT VISIT TRACKING (12 MO.) 06/29/2020 18:57 [facility] DIAGNOSES: - Essential (primary) hypertension - Bipolar disorder, unspecified - Displaced intertrochanteric fracture of right femur, initial encounter for closed fracture - Presence of aortocoronary bypass graft - Fracture of unspecified part of neck of right femur, initial encounter for closed fracture - Opioid dependence, uncomplicated 11/29/2019 15:18 [facility]: Intensive Care DIAGNOSES: - Essential (primary) hypertension - Non-ST elevation (NSTEMI) myocardial infarction - Presence of aortocoronary bypass graft - Chronic combined systolic (congestive) and diastolic (congestive) heart failure 10/23/2019 10:56 [facility] Int[facility] Care DIAGNOSES: - Gastro-esophageal reflux disease without esophagitis - Other forms of angina pectoris - Unspecified viral hepatitis C without hepatic coma - Acute ischemic heart disease, unspecified - Essential (primary) hypertension [email or web address]
[2020-09-27] MEDS ORDERED: ASPIRIN81 MG PO (06:41)
[2020-09-27] MEDS ORDERED: NORCO 5-325 TA1 EACH PO (08:54)
== END 2020-09-27 09:24 | disposition home or self-care (01) ==
LOC: ED 06:22
DX: M16.11 Unilateral primary osteoarthritis, right hip (principal); I10 Essential (primary) hypertension; F17.200 Nicotine dependence, unspecified, uncomplicated; Z79.899 Other long term (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; Z79.82 Long term (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 of aspirin
CPT/HCPCS: 73502; 99283-25

== ENCOUNTER 2021-08-18 00:53 | Emergency (ER) | payer MEDICARE, OTHER ==
[~2021-08-18] VITALS: Ht 172.7 cm; Wt 68.3 kg
[~2021-08-18 00:53] MED LIST changes: +ASPIRIN81 MG PO
--- OUTSIDE RECORDS SUMMARY | 2021-08-18 00:56 | XMS ---
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 07/28/2018-Current PHONE: [phone] MELODIE SILVA Nurse Practitioner 04/06/2019-Current PHONE: [phone] Care Guidelines exist for the following facilities: [facility] ( 02/16/2018 ) [facility] ( 03/06/2015 ) Care History Infection/Chronic 09/25/2015 [facility] History of MRSA. Most recent positive culture of hand abscess 09/19/15. Medical/Surgical 04/06/2019 [facility] - PATIENT HAS NOT SEEN PCP SINCE 01/12/19. - PLEASE ADVISE PATIENT OF FOLLOW UP WITH PCP. - PATIENT WAS REFERRED TO CARDIAC REHAB IN THE PAST. 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 03/31/2019 [facility] - PATIENT IS [place] ELIGIBLE, \T\middot;\T\nbsp; PLEASE REFER PATIENT TO [facility] FOR NON EMERGENT MEDICAL NEEDS. \T\middot;\T\nbsp; [facility] CAN SEE PATIENTS SAME DAY FOR APTS IF PATIENT CALLS FIRST THING IN THE MORNING. 07/06/2018 [facility] - PATIENT HAD AN APT WITH [facility] 07/06/18 @ 10:00AM. - [facility] IS WAITING ON [employer] [place] INCOME VERIFICATION FROM PATIENT IN ORDER TO HELP PATIENT WITH MEDICAID BENEFITS IN THE STATE OF [place], PATIENT IS AWARE OF THIS VERIFICATION NEEDED BUT HAS STATED THAT INCOME VERIFICATION SHOULD BE EXEMPT DUE TO LAND PLANE SETTLEMENT. Substance Use/Overdose 12/28/2018 [facility] - HX OF IV DRUG USAGE- PLEASE BE ADVISED - USE EXTREME CAUTION IN GIVING NARCOTICS TO THIS PATIENT. - Avoid Discharge Narcotic prescriptions if at all possible. Physician Discretion. 09/25/2015 [facility] Noted hx of IV drug use - denies any recent use as of September 2015. E.D. VISIT COUNT (12 MO.) [address] Arlyn Metz 3 [facility]. TOTAL 5 NOTE: Visits indicate total known visits. ED/UCC VISIT TRACKING (12 MO.) 08/18/2021 00:53 NEVA Fernandez TYPE: Emergency COMPLAINT: - FLU SYMPTOMS 04/28/2021 11:46 [facility] [place] TYPE: Emergency DIAGNOSES: - chest pain vomiting cough - Other psychoactive substance abuse, uncomplicated - Cramp and spasm - Chest Pain - Nausea with vomiting, unspecified - Emesis - Chest pain, unspecified 03/15/2021 14:58 [facility] DIAGNOSES: - sob, weakness - Non-ST elevation (NSTEMI) myocardial infarction - Shortness of Breath - Essential (primary) hypertension - Chest Pain - Other stimulant abuse, uncomplicated - Acute on chronic systolic (congestive) heart failure 09/27/2020 06:22 NEVA Novak [place] TYPE: Emergency COMPLAINT: - RT HIP PAIN DIAGNOSES: - Pain in right hip - 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 - Nicotine dependence, unspecified, uncomplicated - Other longterm (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 - Essential (primary) hypertension - Unilateral primary osteoarthritis, right hip 09/20/2020 21:47 NEVA Novak [place] TYPE: Emergency COMPLAINT: - RT EAR PAIN DIAGNOSES: - Nicotine dependence, unspecified, uncomplicated - Otalgia, right ear - Essential (primary) hypertension - Unspecified nonsuppurative otitis media, right ear - Other longterm (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 - Gastro-esophageal reflux disease without esophagitis INPATIENT VISIT TRACKING (12 MO.) 03/15/2021 14:58 [facility] TYPE: Intensive Care DIAGNOSES: - Acute on chronic systolic (congestive) heart failure - Non-ST elevation (NSTEMI) myocardial infarction - Other stimulant abuse, uncomplicated - Essential (primary) hypertension - Centrilobular emphysema [email or web address]
[2021-08-18] MEDS ORDERED: LEVOFLOXACIN750 MG PO (02:53)
--- NOTE | 2021-08-18 13:23 | EKG ---
[facility] [address] [facility] [place] [address] Signed Normal sinus rhythm Possible Left atrial enlargement Left axis deviation Right bundle branch block Inferior infarct (cited on or before 16-JUN-2018) Abnormal ECG When compared with ECG of 08-SEP-2019 17:46, premature ventricular complexes are no longer present ST no longer depressed in Inferior leads Nonspecific T wave abnormality has replaced inverted T waves in Inferior leads T wave inversion no longer evident in Lateral leads Confirmed by BENNY SYED DO ([id number]) on 08/18/2021 1:23:38 PM Electronically Signed By: BENNY SYED DO 08/18/21 1323 PATIENT NAME: ANNE MARIE GIL Electrocardiogram DATE OF : 53 PHYSICIAN: BENNY SYED DO REPORT #: [id number] REPORT IS CONFIDENTIAL AND NOT TO BE RELEASED WITHOUT AUTHORIZATION
== END 2021-08-18 04:08 | disposition home or self-care (01) ==
LOC: ED 00:53
DX: J18.9 Pneumonia, unspecified organism (principal); I25.10 Atherosclerotic heart disease of native coronary artery without angina pectoris; K21.9 Gastro-esophageal reflux disease without esophagitis; I10 Essential (primary) hypertension; F17.200 Nicotine dependence, unspecified, uncomplicated; Z95.1 Presence of aortocoronary bypass graft; Z90.710 Acquired absence of both cervix and uterus; Z95.5 Presence of coronary angioplasty implant and graft; Z79.899 Other long term (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; Z79.82 Long term (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 of aspirin; Z20.822 Contact with and (suspected) exposure to COVID-19
CPT/HCPCS: 71045; 80053; 83735; 84484; 85025; 93005; 93010; 96374; 99285-25; C9803; J0696; U0003

== ENCOUNTER 2021-09-15 21:23 | Emergency (ER) | payer MEDICARE, OTHER ==
[~2021-09-15] VITALS: Ht 172.7 cm; Wt 68.3 kg
[~2021-09-15 21:23] MED LIST changes: +LEVOFLOXACIN750 MG PO
--- OUTSIDE RECORDS SUMMARY | 2021-09-15 21:26 | XMS ---
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 PHONE: [phone] Care Guidelines exist for the following facilities: [facility] ( 02/16/2018 ) [facility] ( 03/06/2015 ) Care History Infection/Chronic 09/25/2015 [facility] History of MRSA. Most recent positive culture of hand abscess 09/19/15. Substance Use/Overdose 12/28/2018 [facility] - HX OF IV DRUG USAGE- PLEASE BE ADVISED - USE EXTREME CAUTION IN GIVING NARCOTICS TO THIS PATIENT. - Avoid Discharge Narcotic prescriptions if at all possible. Physician Discretion. 09/25/2015 [facility] Noted hx of IV drug use - denies any recent use as of September 2015. Medical/Surgical 08/20/2021 [facility] - PATIENT IS [facility] ELIGIBLE, \T\middot;\T\nbsp; PLEASE REFER PATIENT TO [facility] FOR NON EMERGENT MEDICAL NEEDS. \T\middot;\T\nbsp; [facility] SAME DAY FOR APTS IF PATIENT CALLS FIRST THING IN THE MORNING. 04/06/2019 [facility] - PATIENT HAS NOT SEEN PCP SINCE 01/12/19. - PLEASE ADVISE PATIENT OF FOLLOW UP WITH PCP. - PATIENT WAS REFERRED TO CARDIAC REHAB IN THE PAST. 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 03/31/2019 [facility] - PATIENT IS [place] ELIGIBLE, \T\middot;\T\nbsp; [facility]. \T\middot;\T\nbsp; [facility] CAN SEE PATIENTS SAME DAY FOR APTS IF PATIENT CALLS FIRST THING IN THE MORNING. E.D. VISIT COUNT (12 MO.) 2 Agnieszka Rouse M.[facility] 4 NEVA Vallejo MilanBrittnee TOTAL 6 NOTE: Visits indicate total known visits. ED/UCC VISIT TRACKING (12 MO.) 09/15/2021 21:23 [place]A [place] TYPE: Emergency COMPLAINT: - COLD SYMPTOMS 08/18/2021 00:53 [place] TYPE: Emergency COMPLAINT: - FLU SYMPTOMS DIAGNOSES: - Atherosclerotic heart disease of [place] coronary artery without angina pectoris - Essential (primary) hypertension - Pneumonia, unspecified organism - Acquired absence of both cervix and uterus - Nicotine dependence, unspecified, uncomplicated - Presence of aortocoronary bypass graft - COUGH, UNSPECIFIED - Gastro-esophageal reflux disease without esophagitis - Presence of coronary angioplasty implant and graft - Other nonprofit director (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 - 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 04/28/2021 11:46 [facility] [place] TYPE: Emergency DIAGNOSES: - chest pain vomiting cough - Other psychoactive substance abuse, uncomplicated - Cramp and spasm - Chest Pain - Nausea with vomiting, unspecified - Emesis - Chest pain, unspecified 03/15/2021 14:58 [facility] [place] TYPE: Emergency DIAGNOSES: - sob, weakness - Non-ST elevation (NSTEMI) myocardial infarction - Shortness of Breath - Essential (primary) hypertension - Chest Pain - Other stimulant abuse, uncomplicated - Acute on chronic systolic (congestive) heart failure 09/27/2020 06:22 NEVA Fernandez TYPE: Emergency COMPLAINT: - RT HIP PAIN DIAGNOSES: - Pain in right hip - 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 - Nicotine dependence, unspecified, uncomplicated - Other half-way (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 - Essential (primary) hypertension - Unilateral primary osteoarthritis, right hip 09/20/2020 21:47 [place] TYPE: Emergency COMPLAINT: - RT EAR PAIN DIAGNOSES: - Nicotine dependence, unspecified, uncomplicated - Otalgia, right ear - Essential (primary) hypertension - Unspecified nonsuppurative otitis media, right ear - Other half-way (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 - Gastro-esophageal reflux disease without esophagitis INPATIENT VISIT TRACKING (12 MO.) 03/15/2021 14:58 [facility] [place] TYPE: Intensive Care DIAGNOSES: - Acute on chronic systolic (congestive) heart failure - Non-ST elevation (NSTEMI) myocardial infarction - Other stimulant abuse, uncomplicated - Essential (primary) hypertension - Centrilobular emphysema [email or web address]
[2021-09-15] MEDS ORDERED: DOXYCYCLINE HY100 MG PO (22:45)
== END 2021-09-15 22:56 | disposition home or self-care (01) ==
LOC: ED 21:23
DX: J40 Bronchitis, not specified as acute or chronic (principal); L08.9 Local infection of the skin and subcutaneous tissue, unspecified; B96.89 Other specified bacterial agents as the cause of diseases classified elsewhere; K21.9 Gastro-esophageal reflux disease without esophagitis; I10 Essential (primary) hypertension; F17.200 Nicotine dependence, unspecified, uncomplicated; Z79.899 Other long term (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; Z79.82 Long term (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 of aspirin
CPT/HCPCS: 71046; 80053; 85025; 99283-25

== ENCOUNTER 2021-09-30 20:38 | Emergency (ER) | payer MEDICARE, OTHER ==
[~2021-09-30] VITALS: Ht 172.7 cm; Wt 68.3 kg
[~2021-09-30 20:38] MED LIST changes: +DOXYCYCLINE HY100 MG PO
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
[2021-09-30] MEDS ORDERED: DOXYCYCLINE HY100 MG PO (22:29)
== END 2021-09-30 22:50 | disposition home or self-care (01) ==
LOC: ED 20:38
DX: L97.819 Non-pressure chronic ulcer of other part of right lower leg with unspecified severity (principal); L08.9 Local infection of the skin and subcutaneous tissue, unspecified; I10 Essential (primary) hypertension; F17.200 Nicotine dependence, unspecified, uncomplicated; Z79.899 Other long term (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; Z79.82 Long term (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 of aspirin
CPT/HCPCS: 85025; 99283

== ENCOUNTER 2021-10-07 21:58 | Emergency (ER) | payer MEDICARE, OTHER ==
[~2021-10-07] VITALS: Ht 172.7 cm; Wt 65.3 kg
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
[2021-10-08] MEDS ORDERED: BACTRIM DS TAB1 EACH PO (00:53)
== END 2021-10-08 02:21 | disposition home or self-care (01) ==
LOC: ED 21:58
DX: L97.829 Non-pressure chronic ulcer of other part of left lower leg with unspecified severity (principal); L97.819 Non-pressure chronic ulcer of other part of right lower leg with unspecified severity; L03.116 Cellulitis of left lower limb; L03.115 Cellulitis of right lower limb; K21.9 Gastro-esophageal reflux disease without esophagitis; I10 Essential (primary) hypertension; F17.200 Nicotine dependence, unspecified, uncomplicated; Z79.899 Other long term (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; Z79.82 Long term (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 of aspirin
CPT/HCPCS: 73590; 80053; 83605; 85025; 96365; 96366; 99283-25; J3370; J7060; Q0177

== ENCOUNTER 2021-10-24 13:36 | Emergency (ER) | payer MEDICARE, OTHER ==
[~2021-10-24] VITALS: Ht 172.7 cm; Wt 65.3 kg
[~2021-10-24 13:36] MED LIST changes: +BACTRIM DS TAB1 EACH PO
--- OUTSIDE RECORDS SUMMARY | 2021-10-24 13:44 | XMS ---
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 GIL Security Integration Aide Events 1 event(s) in the past 18 months Most recent security events: Elopement at [facility] 09/22/2021 15:50 - Other Details: PATIENT LWBS CRITERIA MET - [facility] - 2 Visits in 30 Days - Group Notification - 6 ED Visits in 6 Months CARE PROVIDERS EMILY CONDON [facility] 07/28/2018-Current PHONE: [phone] MELODIE SILVA Nurse Practitioner 04/06/2019-Current PHONE: [phone] [facility] PHONE: [phone] Care Guidelines exist for the following facilities: [facility] ( 02/16/2018 ) [facility] ( 03/06/2015 ) Care History Infection/Chronic 09/25/2015 [facility] History of MRSA. Most recent positive culture of hand abscess 09/19/15. Substance Use/Overdose 09/17/2021 [facility] - HX OF IV DRUG USAGE- PLEASE BE ADVISED - USE EXTREME CAUTION IN GIVING NARCOTICS TO THIS PATIENT. - Avoid Discharge Narcotic prescriptions if at all possible. Physician Discretion. 09/25/2015 [facility] Noted hx of IV drug use - denies any recent use as of September 2015. Medical/Surgical 10/11/2021 [facility] - Notified Summer concrete bucket loader at [facility] -recent ED visits. They will contact patient for follow up. 08/20/2021 [facility] - PATIENT IS [facility] ELIGIBLE, \T\middot;\T\nbsp; P[facility]GENT [facility] NEEDS. \T\middot;\T\nbsp; [facility] CAN [facility]IENTS SAME DAY FOR APTS IF PATIENT CALLS FIRST THING IN THE MORNING. 07/06/2018 [facility] - PATIENT IS CURRENTLY ESTABLISHED WITH PCP DR CURRY. - PATIENT HAS FOLLOW UP APTS WITH RETAIL SERVICE REPRESENTATIVE DR ROLAND IN [place] ON July. - PATIENT HAD A FOLLOW UP APT WITH DR MARQUIS ON 06/29/18 PATIENT SURGEON. - PATIENT AND CHW WORKED ON PATIENT RECEIVING HER CERTIFICATE WHICH PATIENT NOW HAS. - PATIENT WANTS TO ESTABLISH WITH [facility] BUT CAN'T UNTIL SHE HAS PROOF OF BLOOD LINE PAPERWORK WHICH THEY ARE CURRENTLY WAITING ON TO RECEIVE. - PATIENT INSURANCE SHOULD CHANGE TO [place] MEDICAID ON July SINCE HER AUNT BHAVESH STATED THEY ALREADY CONTACTED AGING AND PEOPLE WITH DISABILITIES OFFICE AND THEY WERE HAVING HER INSURANCE CHANGED TO [place] BECAUSE OF PATIENT MEDICATIONS. Rani VISIT COUNT (12 MO.) 2 [facility] 6 NEVA Vera TOTAL 8 NOTE: Visits indicate total known visits. ED/UCC VISIT TRACKING (12 MO.) 10/24/2021 13:36 [place] TYPE: Emergency COMPLAINT: - ABDOMINAL PAIN 10/07/2021 21:58 [place] TYPE: Emergency COMPLAINT: - POSS LEG INFECTION DIAGNOSES: - Cellulitis of right lower limb - Non-pressure chronic ulcer of other part of left lower leg with unspecified severity - Nicotine dependence, unspecified, uncomplicated - Cellulitis of left lower limb - Gastro-esophageal reflux disease without esophagitis - Non-pressure chronic ulcer of other part of right lower leg with unspecified severity - Essential (primary) hypertension - manager long term care (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 of aspirin - Other senior care (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 09/30/2021 20:39 [place] TYPE: Emergency COMPLAINT: - R LEG PAIN, FEVER DIAGNOSES: - Essential (primary) hypertension - Non-pressure chronic ulcer of other part of right lower leg with unspecified severity - Other senior care (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 - MCC (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 of aspirin - Non-pressure chronic ulcer of other part of right lower leg with unspecified severity - Local infection of the skin and subcutaneous tissue, unspecified - Nicotine dependence, unspecified, uncomplicated 09/22/2021 15:50 [place] TYPE: Emergency COMPLAINT: - MEDICATION REFILL 09/15/2021 21:23 NEVA Fernandez TYPE: Emergency COMPLAINT: - COLD SYMPTOMS DIAGNOSES: - Local infection of the skin and subcutaneous tissue, unspecified - Other specified bacterial agents as the cause of diseases classified elsewhere - Essential (primary) hypertension - manager long term care (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 of aspirin - COUGH, UNSPECIFIED - Other terminal supervisor (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 - Gastro-esophageal reflux disease without esophagitis - Bronchitis, not specified as acute or chronic - Nicotine dependence, unspecified, uncomplicated 08/18/2021 00:53 NEVA Fernandez TYPE: Emergency COMPLAINT: - FLU SYMPTOMS DIAGNOSES: - Atherosclerotic heart disease of [place] coronary artery without angina pectoris - Essential (primary) hypertension - Pneumonia, unspecified organism - Acquired absence of both cervix and uterus - Nicotine dependence, unspecified, uncomplicated - Presence of aortocoronary bypass graft - COUGH, UNSPECIFIED - Gastro-esophageal reflux disease without esophagitis - Presence of coronary angioplasty implant and graft - Other terminal supervisor (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 - MCC (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 of aspirin 04/28/2021 11:46 [facility] Arlyn [facility] TYPE: Emergency DIAGNOSES: - chest pain vomiting cough - Other psychoactive substance abuse, uncomplicated - Cramp and spasm - Chest Pain - Nausea with vomiting, unspecified - Emesis - Chest pain, unspecified 03/15/2021 14[facility] DIAGNOSES: - sob, weakness - Non-ST elevation (NSTEMI) myocardial infarction - Shortness of Breath - Essential (primary) hypertension - Chest Pain - Other stimulant abuse, uncomplicated - Acute on chronic systolic (congestive) heart failure INPATIENT VISIT TRACKING (12 MO.) 03/15/2021 14:58 [facility] Care DIAGNOSES: - Acute on chronic systolic (congestive) heart failure - Non-ST elevation (NSTEMI) myocardial infarction - Other stimulant abuse, uncomplicated - Essential (primary) hypertension - Centrilobular emphysema [id number]
--- NOTE | 2021-10-25 11:27 | EKG ---
[facility] [address] [facility] [place] [address] Signed Normal sinus rhythm Left axis deviation Left ventricular hypertrophy with repolarization abnormality ( R in aVL , [place] product ) Inferior infarct (cited on or before 16-JUN-2018) Abnormal ECG When compared with ECG of 18-AUG-2021 01:25, Right bundle branch block is no longer present Confirmed by WOOD YANG MD ([id number]) on 10/25/2021 11:27:02 AM Electronically Signed By: WOOD YANG MD 10/25/21 1127 PATIENT NAME: ANNE MARIE GIL Electrocardiogram DATE OF : 53 PHYSICIAN: WOOD YANG MD REPORT #: [id number] REPORT IS CONFIDENTIAL AND NOT TO BE RELEASED WITHOUT AUTHORIZATION
== END 2021-10-24 18:35 | disposition home or self-care (01) ==
LOC: ED 13:36
DX: R11.2 Nausea with vomiting, unspecified (principal); F12.90 Cannabis use, unspecified, uncomplicated; R10.84 Generalized abdominal pain; I10 Essential (primary) hypertension; K21.9 Gastro-esophageal reflux disease without esophagitis; F17.200 Nicotine dependence, unspecified, uncomplicated; Z79.899 Other long term (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; Z79.82 Long term (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 of aspirin
CPT/HCPCS: 74176; 80053; 81001; 83690; 85025; 93005; 93010; 96372; 99284-25; A9270; J1790; J1885

== ENCOUNTER 2021-11-05 15:03 | Emergency (ER) | payer MEDICARE, OTHER ==
[~2021-11-05] VITALS: Ht 172.7 cm; Wt 65.7 kg
--- OUTSIDE RECORDS SUMMARY | 2021-11-05 15:06 | XMS ---
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 GIL Security Equipment Lead Events 1 event(s) in the past 18 months Most recent security events: Elopement at [facility] 09/22/2021 15:50 - Other Details: PATIENT LWBS CRITERIA MET - Group Notification - 6 ED Visits in [address] [facility] - [facility] - 2 Visits in 30 Days CARE PROVIDERS EMILY CONDON [facility] 07/28/2018-Current PHONE: [phone] MELODIE SILVA Nurse Ilir 04/06/2019-Current PH[facility]: [phone] [facility] PHONE: [phone] Care Guidelines exist for the following facilities: [facility] ( 02/16/2018 ) [facility] ( 03/06/2015 ) Care History Medical/Surgical 10/11/2021 [facility] - Notified Summer rubber and plastics worker at [facility] -recent ED visits. They will contact patient for follow up. 08/20/2021 [facility] - PATIENT IS YELLOWHAW ELIGIBLE, \T\middot;\T\nbsp; PLEASE REFER PATIENT TO [facility] FOR NON EMERGENT MEDICAL NEEDS. \T\middot;\T\nbsp; [facility] CAN SEE PATIENTS SAME DAY FOR APTS IF PATIENT CALLS FIRST THING IN THE MORNING. 07/06/2018 [facility] - PATIENT IS CURRENTLY ESTABLISHED WITH PCP DR CURRY. - PATIENT HAS FOLLOW UP APTS WITH PEST LOCATOR DR ROLAND IN [place] ON July. - PATIENT HAD A FOLLOW UP APT WITH DR MARQUIS ON 06/29/18 PATIENT SURGEON. - PATIENT AND CHW WORKED ON PATIENT RECEIVING HER CERTIFICATE WHICH PATIENT NOW HAS. - PATIENT WANTS TO ESTABLISH WITH [facility] BUT CAN'T UNTIL SHE HAS PROOF OF BLOOD LINE PAPERWORK WHICH THEY ARE CURRENTLY WAITING ON TO RECEIVE. - PATIENT INSURANCE SHOULD CHANGE TO [place] [employer] ON July SINCE HER AUNT BHAVESH STATED THEY ALREADY CONTACTED AGING AND PEOPLE WITH DISABILITIES OFFICE AND THEY WERE HAVING HER INSURANCE CHANGED TO [place] BECAUSE OF PATIENT MEDICATIONS. Infection/Chronic 09/25/2015 [facility] History of MRSA. Most recent positive culture of hand abscess 09/19/15. Substance Use/Overdose 09/17/2021 [facility] - HX OF IV DRUG USAGE- PLEASE BE ADVISED - USE EXTREME CAUTION IN GIVING NARCOTICS TO THIS PATIENT. - Avoid Discharge Narcotic prescriptions if at all possible. Physician Discretion. 09/25/2015 [facility] Noted hx of IV drug use - denies any recent use as of September 2015. [facility] TOTAL 9 NOTE: Visits indicate total known visits. ED/UCC VISIT TRACKING (12 MO.) 11/05/2021 15:04 [facility] [place] TYPE: Emergency COMPLAINT: - R LEG SWELLING 10/24/2021 13:36 [facility] [place] TYPE: Emergency COMPLAINT: - ABDOMINAL PAIN DIAGNOSES: - Generalized abdominal pain - Nicotine dependence, unspecified, uncomplicated - Gastro-esophageal reflux disease without esophagitis - Essential (primary) hypertension - Nausea with vomiting, unspecified - Other technician terminal and repeater (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 - Cannabis use, unspecified, uncomplicated - terminal clerk (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 of aspirin 10/07/2021 21:58 [facility] [place] TYPE: Emergency [...] unspecified severity - Essential (primary) hypertension - terminal clerk (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 of aspirin - Other intermediate (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 09/30/2021 20:39 [facility] [place] TYPE: Emergency COMPLAINT: - R LEG PAIN, FEVER DIAGNOSES: - Essential (primary) hypertension - Non-pressure chronic ulcer of other part of right lower leg with unspecified severity - Other technician terminal and repeater (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 - terminal clerk (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 of aspirin - Non-pressure chronic [...] classified elsewhere - Essential (primary) hypertension - longterm (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 of aspirin - COUGH, UNSPECIFIED - Other technician terminal and repeater (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 - Gastro-esophageal reflux disease without esophagitis - Bronchitis, not specified as acute or chronic - Nicotine dependence, unspecified, uncomplicated 08/18/2021 00:53 [facility] [place] TYPE: Emergency COMPLAINT: - FLU SYMPTOMS DIAGNOSES: - Atherosclerotic heart disease of [place] coronary artery without angina pectoris - Essential (primary) hypertension - Pneumonia, unspecified organism - Acquired absence of both cervix and uterus - Nicotine dependence, unspecified, uncomplicated - Presence of aortocoronary bypass graft - COUGH, UNSPECIFIED - Gastro-esophageal reflux disease without esophagitis - Presence of coronary angioplasty implant and graft - Other technician terminal and repeater (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 - longterm (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 of aspirin 04/28/2021 11:46 [facility] [place] TYPE: Emergency DIAGNOSES: - chest pain vomiting cough - Other psychoactive substance abuse, uncomplicated - Cramp and spasm - Chest Pain - Nausea with vomiting, unspecified - Emesis - Chest pain, unspecified 03/15/2021 14:58 [facility] [place] TYPE: Emergency DIAGNOSES: - sob, weakness - Non-ST elevation (NSTEMI) myocardial infarction - Shortness of Breath - Essential (primary) hypertension - Chest Pain - Other stimulant abuse, uncomplicated - Acute on chronic systolic (congestive) heart failure INPATIENT VISIT TRACKING (12 MO.) 03/15/2021 14:58 [facility] DIAGNOSES: - Acute on chronic systolic (congestive) heart failure - Non-ST elevation (NSTEMI) myocardial infarction - Other stimulant abuse, uncomplicated - Essential (primary) hypertension - Centrilobular emphysema [id number]
[2021-11-05] MEDS ORDERED: DOXYCYCLINE HY100 MG PO (17:03)
== END 2021-11-05 17:34 | disposition home or self-care (01) ==
LOC: ED 15:03
DX: L97.219 Non-pressure chronic ulcer of right calf with unspecified severity (principal); I73.9 Peripheral vascular disease, unspecified; K21.9 Gastro-esophageal reflux disease without esophagitis; I10 Essential (primary) hypertension; F17.200 Nicotine dependence, unspecified, uncomplicated; Z79.82 Long term (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 of aspirin; Z79.899 Other long term (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
CPT/HCPCS: 73590; 99283-25

== ENCOUNTER 2022-06-20 06:46 | Emergency (ER) | payer MEDICARE, OTHER ==
[~2022-06-20] VITALS: Ht 172.7 cm; Wt 65.3 kg
[2022-06-20] MEDS ORDERED: NEURONTIN100 MG PO (07:01)
--- OUTSIDE RECORDS SUMMARY | 2022-06-20 07:01 | XMS ---
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 GIL Security Sanitation Supervisor Events 1 event(s) in the past 18 months Most recent security events: Elopement at [facility] 09/22/2021 15:50 - Other Details: PATIENT LWBS CRITERIA MET - PDMP - Group Notification CARE PROVIDERS EMILY CONDON [facility] 07/28/2018-Current PHONE: [phone] MELODIE SILVA Nurse Practitioner 04/06/2019-Current PHONE: [phone] [facility] 08/20/[facility] PHONE: [phone] Care Guidelines exist for the following facilities: [facility] ( 02/16/2018 ) [facility] ( 03/06/2015 ) Care History Medical/Surgical 10/11/2021 [facility] - Notified Summer aquatic life laborer at [facility] -recent ED visits. They will contact patient for follow up. 08/20/2021 [facility] - PATIENT IS YELLOWHAW ELIGIBLE, \T\middot;\T\nbsp; PLEASE REFER PATIENT TO [facility] FOR NON EMERGENT MEDICAL NEEDS. \T\middot;\T\nbsp; [facility] CAN SEE PATIENTS SAME DAY FOR APTS IF PATIENT CALLS FIRST THING IN THE MORNING. 07/06/2018 [facility] - PATIENT IS CURRENTLY ESTABLISHED WITH PCP DR CURRY. - PATIENT HAS FOLLOW UP APTS WITH SEAT SCOOPER MACHINE DR ROLAND IN [place] ON July. - PATIENT HAD A FOLLOW UP APT WITH DR MARQUIS ON 06/29/18 PATIENT SURGEON. - PATIENT AND CHW WORKED ON PATIENT RECEIVING HER CERTIFICATE WHICH PATIENT NOW HAS. - PATIENT WANTS TO ESTABLISH WITH [facility] BUT CAN'T UNTIL SHE HAS PROOF OF BLOOD LINE PAPERWORK WHICH THEY ARE CURRENTLY WAITING ON TO RECEIVE. - PATIENT INSURANCE SHOULD CHANGE TO [place] MEDICAID ON July SINCE HER AUNT BHAVESH STATED THEY ALREADY CONTACTED AGING AND PEOPLE WITH DISABILITIES OFFICE AND THEY WERE HAVING HER INSURANCE CHANGED TO [place] BECAUSE OF PATIENT MEDICATIONS. Substance Use/Overdose 09/17/2021 [facility] - HX OF IV DRUG USAGE- PLEASE BE ADVISED - USE EXTREME CAUTION IN GIVING NARCOTICS TO THIS PATIENT. - Avoid Discharge Narcotic prescriptions if at all possible. Physician Discretion. 09/25/2015 [facility] Noted hx of IV drug use - denies any recent use as of September 2015. Infection/Chronic 09/25/2015 [facility] History of MRSA. Most recent positive culture of hand abscess 09/19/15. E.D. VISIT COUNT (12 MO.) [address] [facility] TOTAL 8 NOTE: Visits indicate total known visits. 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 - Peripheral vascular disease, unspecified - Gastro-esophageal reflux disease without esophagitis - Disorder of the skin and subcutaneous tissue, unspecified - Essential (primary) hypertension - Non-pressure chronic ulcer of right calf with unspecified severity - Other prison (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 10/24/2021 13:36 [facility] [place] TYPE: Emergency COMPLAINT: - ABDOMINAL PAIN DIAGNOSES: - Gastro-esophageal reflux disease without esophagitis - Generalized abdominal pain - bed bug exterminator (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 of aspirin - Other intermediate designer (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 - Essential (primary) hypertension - Nicotine dependence, unspecified, uncomplicated - Cannabis use, unspecified, uncomplicated - Nausea with vomiting, unspecified 10/07/2021 21:58 [facility] [place] TYPE: Emergency COMPLAINT: - POSS LEG INFECTION DIAGNOSES: - Nicotine dependence, unspecified, uncomplicated - Cellulitis of right lower limb - skilled nursing (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 of aspirin - Non-pressure chronic ulcer of other part of right lower leg with unspecified severity - Cellulitis of left lower limb - Non-pressure chronic ulcer of other part of left lower leg with unspecified severity - Other prison (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 - Essential (primary) hypertension - Gastro-esophageal reflux disease without esophagitis 09/30/2021 20:39 [facility] [place] TYPE: Emergency COMPLAINT: - R LEG PAIN, FEVER DIAGNOSES: - Other prison (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 - Essential (primary) hypertension - Local infection of the skin and subcutaneous tissue, unspecified - skilled nursing (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 of aspirin - Non-pressure chronic ulcer of other part of right lower leg with unspecified severity - Nicotine dependence, unspecified, uncomplicated - Non-pressure chronic ulcer of other part of right lower leg with unspecified severity 09/22/2021 15:50 [facility] [place] TYPE: Emergency COMPLAINT: - MEDICATION REFILL 09/15/2021 21:23 [facility] [place] TYPE: Emergency COMPLAINT: - COLD SYMPTOMS DIAGNOSES: - Essential (primary) hypertension - Nicotine dependence, unspecified, uncomplicated - Local infection of the skin and subcutaneous tissue, unspecified - Gastro-esophageal reflux disease without esophagitis - Other intermediate designer (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 - bed bug exterminator (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 of aspirin - Other specified bacterial agents as the cause of diseases classified elsewhere - Bronchitis, not specified as acute or chronic - Cough, unspecified - COUGH, UNSPECIFIED 08/18/2021 00:[address] [facility] [place] TYPE: Emergency COMPLAINT: - FLU SYMPTOMS DIAGNOSES: - Pneumonia, unspecified organism - Other intermediate designer (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 - Atherosclerotic heart disease of [place] coronary artery without angina pectoris - Gastro-esophageal reflux disease without esophagitis - Presence of aortocoronary bypass graft - Acquired absence of both cervix and uterus - bed bug exterminator (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 of aspirin - Essential (primary) hypertension - Presence of coronary angioplasty implant and graft - COUGH, UNSPECIFIED - Nicotine dependence, unspecified, uncomplicated INPATIENT VISIT TRACKING (12 MO.) No inpatient visits to display in this time frame [email or web address]
== END 2022-06-20 08:44 | disposition home or self-care (01) ==
LOC: ED 06:46
DX: R10.9 Unspecified abdominal pain (principal); F11.23 Opioid dependence with withdrawal; I10 Essential (primary) hypertension; F17.200 Nicotine dependence, unspecified, uncomplicated; Z79.899 Other long term (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; Z79.82 Long term (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 of aspirin
CPT/HCPCS: 36415; 80053; 81001; 83735; 85025; 96374; 96375; 99284-25; J1170; J1790; J7030

== ENCOUNTER 2022-07-13 22:43 | Emergency (ER) | payer MEDICARE, OTHER ==
[~2022-07-13] VITALS: Ht 172.7 cm; Wt 65.7 kg
[~2022-07-13 22:43] MED LIST changes: +NEURONTIN100 MG PO
--- OUTSIDE RECORDS SUMMARY | 2022-07-13 22:46 | XMS ---
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 GIL Security Unit Leader Events 1 event(s) in the past 18 months Most recent security events: Elopement at [facility] 09/22/2021 15:50 - Other Details: PATIENT LWBS CRITERIA MET - [facility] - 2 Visits in 30 Days - Group Notification - PDMP CARE PROVIDERS EMILY CONDON [facility] 07/28/2018-Current PHONE: [phone] MELODIE SILVA Nurse Ilir 04/06/2019-Current PHONE: [phone] [facility] 08/20/2021-[facility] PHONE: [phone] Care Guidelines exist for the following facilities: [facility] ( 02/16/2018 ) [facility] ( 03/06/2015 ) Care History Medical/Surgical 10/11/2021 [facility] - Notified Summer supervisor enrobing at [facility] -recent ED visits. They will contact patient for follow up. 08/20/2021 [facility] - PATIENT IS YELLOWHAWK ELIGIBLE, \T\middot;\T\nbsp; PLEASE REFER PATIENT TO [facility] FOR NON EMERGENT MEDICAL NEEDS. \T\middot;\T\nbsp; [facility] CAN SEE PATIENTS SAME DAY FOR APTS IF PATIENT CALLS FIRST THING IN THE MORNING. 07/06/2018 [facility] - PATIENT IS CURRENTLY ESTABLISHED WITH PCP DR CURRY. - PATIENT HAS FOLLOW UP APTS WITH AIR COMPRESSOR ENGINEER DR ROLAND IN [place] ON July. - PATIENT HAD A FOLLOW UP APT WITH DR MARQUIS ON 06/29/18 PATIENT SURGEON. - PATIENT AND CHW WORKED ON PATIENT RECEIVING HER CERTIFICATE WHICH PATIENT NOW HAS. - PATIENT WANTS TO ESTABLISH WITH [facility] BUT CAN'T UNTIL SHE HAS PROOF OF BLOOD LINE PAPERWORK WHICH THEY ARE CURRENTLY WAITING ON TO RECEIVE. - PATIENT INSURANCE SHOULD CHANGE TO [place] MEDICAID ON July SINCE HER AUNT BHAVESH STATED THEY ALREADY CONTACTED AGING AND PEOPLE WITH DISABILITIES OFFICE AND THEY WERE HAVING HER INSURANCE CHANGED TO [place] BECAUSE OF PATIENT MEDICATIONS. Substance Use/Overdose 09/17/2021 [facility] - HX OF IV DRUG USAGE- PLEASE BE ADVISED - USE EXTREME CAUTION IN GIVING NARCOTICS TO THIS PATIENT. - Avoid Discharge Narcotic prescriptions if at all possible. Physician Discretion. 09/25/2015 [facility] Noted hx of IV drug use - denies any recent use as of September 2015. Infection/Chronic 09/25/2015 [facility] History of MRSA. Most recent positive culture of hand abscess 09/19/15Brittnee Saravia VISIT COUNT (12 MO.) 9 NEVA Vera TOTAL 9 NOTE: Visits indicate total known visits. ED/UCC VISIT TRACKING (12 MO.) 07/13/2022 22:44 [facility] [place] TYPE: Emergency COMPLAINT: - BODY ACHES [facility]22 [facility] [place] [facility] COMPLAINT: - ABD PAIN DIAGNOSES: - Opioid dependence with withdrawal - Other senior care (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 - superintendent marine oil terminal (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 of aspirin - Nicotine dependence, unspecified, uncomplicated - Nausea with vomiting, unspecified - Essential (primary) hypertension - Unspecified abdominal pain 11/05/2021 15:04 [facility] [place] [facility] COMPLAINT: - R LEG SWELLING DIAGNOSES: - superintendent marine oil terminal (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 of aspirin - Nicotine dependence, unspecified, uncomplicated - 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 - Peripheral vascular disease, unspecified - Gastro-esophageal reflux disease without esophagitis - Disorder of the skin and subcutaneous tissue, unspecified - Essential (primary) hypertension - Non-pressure chronic ulcer of right calf with unspecified severity - Other truck terminal manager (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 10/24/2021 13:36 [facility] [place] [facility] COMPLAINT: - ABDOMINAL PAIN DIAGNOSES: - Gastro-esophageal reflux disease without esophagitis - Generalized abdominal pain - [facility] (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 of aspirin - Other truck terminal manager (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 - Essential (primary) hypertension - Nicotine dependence, unspecified, uncomplicated - Cannabis use, unspecified, uncomplicated - Nausea with vomiting, unspecified 10/07/2021 21:58 [facility] [place] TYPE: Emergency COMPLAINT: - POSS LEG INFECTION DIAGNOSES: - Nicotine dependence, unspecified, uncomplicated - Cellulitis of right lower limb - superintendent marine oil terminal (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 of aspirin - Non-pressure chronic ulcer of other part of right lower leg with unspecified severity - Cellulitis of left lower limb - Non-pressure chronic ulcer of other part of left lower leg with unspecified severity - Other truck terminal manager (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 - Essential (primary) hypertension - Gastro-esophageal reflux disease without esophagitis 09/30/2021 20:39 [facility] [place] TYPE: Emergency COMPLAINT: - R LEG PAIN, FEVER DIAGNOSES: - Other truck terminal manager (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 - Essential (primary) hypertension - Local infection of the skin and subcutaneous tissue, unspecified - [facility] (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 of aspirin - Non-pressure chronic ulcer of other part of right lower leg with unspecified severity - Nicotine dependence, unspecified, uncomplicated - Non-pressure chronic ulcer of other part of right lower leg with unspecified severity 09/22/2021 15:50 [facility] [place] TYPE: Emergency COMPLAINT: - MEDICATION REFILL 09/15/2021 21:23 [facility] [place] TYPE: Emergency COMPLAINT: - COLD SYMPTOMS DIAGNOSES: - Essential (primary) hypertension - Nicotine dependence, unspecified, uncomplicated - Local infection of the skin and subcutaneous tissue, unspecified - Gastro-esophageal reflux disease without esophagitis - Other senior care (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 - [facility] (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 of aspirin - Other specified bacterial agents as the cause of diseases classified elsewhere - Bronchitis, not specified as acute or chronic - Cough, unspecified - COUGH, UNSPECIFIED 08/18/2021 00:53 [facility] [place] TYPE: Emergency COMPLAINT: - FLU SYMPTOMS DIAGNOSES: - Pneumonia, unspecified organism - Other truck terminal manager (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 - Atherosclerotic heart disease of [place] coronary artery without angina pectoris - Gastro-esophageal reflux disease without esophagitis - Presence of aortocoronary bypass graft - Acquired absence of both cervix and uterus - [facility] (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 of aspirin - Essential (primary) hypertension - Presence of coronary angioplasty implant and graft - COUGH, UNSPECIFIED - Nicotine dependence, unspecified, uncomplicated INPATIENT VISIT TRACKING (12 MO.) No inpatient visits to display in this time frame [email or web address]
== END 2022-07-14 00:34 | disposition home or self-care (01) ==
LOC: ED 22:43
DX: F19.10 Other psychoactive substance abuse, uncomplicated (principal); E87.1 Hypo-osmolality and hyponatremia; K21.9 Gastro-esophageal reflux disease without esophagitis; I10 Essential (primary) hypertension; F17.200 Nicotine dependence, unspecified, uncomplicated; Z79.82 Long term (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 of aspirin; Z79.899 Other long term (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
CPT/HCPCS: 36415; 51701; 71045; 80053; 81001; 83690; 85025; 99284-25; A9270; J1885; J2405; J7030